=== PATIENT | male | born 1945 | race Caucasian/White ===

== ENCOUNTER 2019-02-04 09:40 | Emergency (ER) | payer MEDICARE, OTHER, SELFPAY ==
[2019-02-04 09:41] VITALS: BP 168/83; PULSE 79; RESP 16; TEMP 36.9; O2SAT 94; BMI 35.6
--- NOTE | 2019-02-04 10:01 | ED.RN ---
came in today with daughter with no c/o pain. recent stroke january 28.pt chuckling lots and having strange behaviors at home. when assessed no weakness noted. pt needing prompting to answer questions. got month and year rt only when given multiple choices.
--- NOTE | 2019-02-04 10:05 | EKG12_ITS ---
Test Reason : CONFUSION Blood Pressure : / mmHG Vent. Rate : 074 BPM Atrial Rate : 074 BPM P-R Int : 196 ms QRS Dur : 114 ms QT Int : 396 ms P-R-T Axes : 002 -17 -06 degrees QTc Int : 439 ms Normal sinus rhythm Leftward [place] Poor R-Wave Progression Anterio OK, age undetermined cannot be excluded Inferior infarct (cited on or before 10-APR-2014), age undetermined Abnormal ECG Confirmed by DELANO JAMES, ERWIN ([id number]), editorial cartoonist MARGARITA HERRERA ([id number]) on 02/06/2019 1:28:31 PM Referred By: ILAN Confirmed By:ERWIN WICK MD
--- NOTE | 2019-02-04 10:09 | ED.VISSUMM ---
- ER Visit Summary Date of Service: 02/04/19 Chief Complaint: Confusion History of Present Illness: The patient is a 73 M history of a recently diagnosed stroke on outpatient CAT scan done at the [facility]. Patient also has a history of blv-cdhodig-ypsdhgsrj diabetes, hypertension, COPD, renal insufficiency and high cholesterol. Patient lives with his daughter and her family. Over the last 4 weeks or so he has had increasing confusion. He did have a recent fall had a CAT scan done after that which found a stroke. She states he is tried to start the car without cheese. He has been inadvertently texting people. He denies any recent illnesses. Physical Examination: Older male no acute distress. Vital signs are stable. Afebrile. He does not look septic or toxic. He is in no distress. Daughters at bedside. HEENT exam unremarkable. Atraumatic. Pupils round reactive light. Extra motions are intact. Normal speech. No facial droop. Neck nontender. Prior right-sided carotid endarterectomy. Lungs clear to auscultation bilaterally. Heart regular rhythm no murmur. Chest wall nontender. Abdomen soft nontender. Patient is moving all 4 extremities. No edema. Neurologically patient is awake. He is alert. He answers questions. No slurred speech. He does know month, year and president [facility] but he has to be prompted and given choices. But he can pick the correct year when 3 choices are given, also the correct president on multiple choice and the correct month. Test Results: CBC was normal white count 8. Hemoglobin 13. Chemistries unremarkable other than creatinine 1.6. Normal gap. Liver enzymes normal. Chest x-ray shows borderline cardiomegaly otherwise no acute process. Read by myself and the radiologist. EKG sinus rhythm rate of 74 with no acute signs of DE or ischemia. Emergency Department Course and Treatment: Older male with confusion. Patient is doing well at 1340. Had a long discussion with both the patient and his family. Family wants to take him home he does not want to be admitted and they will do an outpatient dementia workup with her primary care physician. Probably needs neurology referral and also potentially to see if communications 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. Treatment Plan: Follow-up with PCP for outpatient dementia workup. Disposition: Discharge Impression: Confusion of uncertain etiology This note was generated with ONEPLEation software. It may contain incorrect words, spelling, and punctuation that were not noted in review of the chart prior to signing ED Disposition - Plan for ED Patient: Referrals: Mannie Bang MD [NON-STAFF] -
--- NOTE | 2019-02-04 10:13 | ED.DCSUM_ITS ---
- ER Visit Summary Date of Service: 02/04/19 Chief Complaint: Confusion History of Present Illness: The patient is a 73 M history of a recently diagnosed stroke on outpatient CAT scan done at the [facility]. Patient also has a history of eeg-mfjobls-ljvsgyveu diabetes, hypertension, COPD, renal insufficiency and high cholesterol. Patient lives with his daughter and her family. Over the last 4 weeks or so he has had increasing confusion. He did have a recent fall had a CAT scan done after that which found a stroke. She states he is tried to start the car without cheese. He has been inadvertently texting people. He denies any recent illnesses. Physical Examination: Older male no acute distress. Vital signs are stable. Afebrile. He does not look septic or toxic. He is in no distress. Daughters at bedside. HEENT exam unremarkable. Atraumatic. Pupils round reactive light. Extra motions are intact. Normal speech. No facial droop. Neck nontender. Prior right-sided carotid endarterectomy. Lungs clear to auscultation bilaterally. Heart regular rhythm no murmur. Chest wall nontender. Abdomen soft nontender. Patient is moving all 4 extremities. No edema. Neurologically patient is awake. He is alert. He answers questions. No slurred speech. He does know month, year and president [facility] but he has to be prompted and given choices. But he can pick the correct year when 3 choices are given, also the correct president on multiple choice and the correct month. Test Results: CBC was normal white count 8. Hemoglobin 13. Chemistries unremarkable other than creatinine 1.6. Normal gap. Liver enzymes normal. Chest x-ray shows borderline cardiomegaly otherwise no acute process. Read by myself and the radiologist. EKG sinus rhythm rate of 74 with no acute signs of TN or ischemia. Emergency Department Course and Treatment: Older male with confusion. Patient is doing well at 1340. Had a long discussion with both the patient and his family. Family wants to take him home he does not want to be admitted and they will do an outpatient dementia workup with her primary care physician. Probably needs neurology referral and also potentially to see if ropeman. Treatment Plan: Follow-up with PCP for outpatient dementia workup. Disposition: Discharge Impression: Confusion of uncertain etiology This note was generated with [employer] software. It may contain incorrect words, spelling, and punctuation that were not noted in review of the chart prior to signing ED Disposition - Plan for ED Patient: Referrals: Mannie Bang MD [NON-STAFF] -
--- NOTE | 2019-02-04 10:22 | RAD_ITS ---
STUDY: X-RAY CHEST REASON FOR EXAM: Male, 73 years old. Confusion and pain. TECHNIQUE: Single portable frontal chest. COMPARISON: None. FINDINGS: There is minimal mixed interstitial and alveolar opacity within both medial lung bases. No definite dominant focal alveolar opacification. No pleural effusion. No pneumothorax. There is no demonstrated pleural abnormality. There is borderline cardiomegaly. Normal mediastinum and gabby. Normal visualized pulmonary arteries. There is atherosclerotic calcification of the aortic arch with tortuosity. There is no acute osseous abnormality. There is no demonstrated abnormality of the visualized soft tissue structures of the upper abdomen. RAD/Chest 1 View (Portable) IMPRESSION: Bilateral medial lung base findings may simply represent bronchovascular crowding from a mildly small lung volumes. Small/early foci of pneumonitis can also present in this fashion. Consider follow-up. Borderline cardiomegaly. Senescent changes of descending thoracic aorta. Atherosclerotic peripheral vascular disease. No pneumothorax. Electronically Signed: Khanh Knight MD at 10:35 EDT , Service support ,
[2019-02-04 10:52] LABS: Absolute Lymphocyte Count 1.47 X10^3/ul (0.83-4.51); Absolute Neutrophil Count 5.9 X10^3/uL (2.0-7.7); Basophil# 0.03 X10^3/uL; Basophil% 0.4 % (0-1); Eosinophils% 2.4 % (0-5); Hematocrit 42.8 % (40-54); Hemoglobin 13.8 g/dl (13.0-16.5); Lymphocyte # 1.47 X10^3/ul (4.0); Lymphocyte % 17.8 % (19-41); Mean Corp Hgb Conc 32.2 g/gl (32-36); Mean Corpuscular Hgb 29.2 pg (27.0-32.0); Mean Corpuscular Volume 90.7 fL (80-94); Monocyte# 0.59 X10^3/uL; Monocyte% 7.2 % (0-10); Neutrophil # 5.94 X10^3/uL (2.7-7.7); Platelet Count 204 K/mm3 (150-450); RBC Distribution Width CV 14.7 % (11.6-14.6); RBC Distribution Width SD 48.6 fl (35.1-43.9); Red Blood Count 4.72 M/mm3 (4.6-6.2); White Blood Count 8.3 K/mm3 (4.4-11.0)
[2019-02-04 11:00] LABS: POSITIVE DIFFERENTIAL NO; POSITIVE MORPHOLOGY NO
[2019-02-04 11:05] LABS: AST(SGOT) 13 U/L (15-37); Alanine Aminotransfer ALT/SGPT 18 U/L (16-61); Albumin, Serum 3.5 g/dL (3.2-5.0); Alkaline Phosphatase 90 U/L (45-117); Anion Gap 6 (5-15); BUN 24 mg/dL (7-18); BUN/Creat Ratio 14.5 RATIO (10-20); Bilirubin, Direct 0.25 mg/dL (0.00-0.30); Calcium,Total 8.8 mg/dL (8.5-10.1); Chloride 106 mmol/L (98-107); Creatinine, Serum 1.66 mg/dL (0.70-1.30); EST Glomerular Filtration Rate 43 mL/min (>60); Est Glom Filt Rate - Afr Amer 52 mL/min (>60); Estimated Creatinine Clearance 40.95 ml/min; Globulin 3.9 g/dL (2.2-4.2); Glucose 135 mg/dL (74-106); Potassium 3.9 mmol/L (3.5-5.1); Protein, Total 7.4 g/dL (6.4-8.2); Sodium Level 139 mmol/L (136-145)
[2019-02-04 11:29] VITALS: BP 122/70; PULSE 70; RESP 22; O2SAT 97
--- NOTE | 2019-02-04 13:50 | DCINST.ED_ITS ---
ED Disposition - Plan for ED Patient: Disposition: Home or Assisted Living Instructions: ED Confusion, ED Dementia Caregiver Support Referrals: Guanakito Atkins MD [Primary Care Provider] - As soon as possible Fred Rob MD [STAFF PHYSICIAN] - As soon as possible Additional Instructions: He needs a follow-up with his primary care physician. He will need outpatient workup for dementia. Review most likely need to see a business operations coordinator. Older patients with these types of issues. He may also need to see a neurologist. Dr. Fred Rob is a neurologist at the [facility]. He can also be seen by someone at the [facility] per Dr. Atkins's referral.
[2019-02-04 13:54] VITALS: BP 169/72; PULSE 73; RESP 15; O2SAT 97
== END 2019-02-04 13:55 | disposition home or self-care (01) ==
PROVIDERS: Emergency Provider Emergency Medicine; Family Provider Family Medicine; PCP Family Medicine
DX: R41.0 Disorientation, unspecified (principal); I12.9 Hypertensive chronic kidney disease with stage 1 through stage 4 chronic kidney disease, or unspecified chronic kidney disease; E11.22 Type 2 diabetes mellitus with diabetic chronic kidney disease; N18.3 Chronic kidney disease, stage 3 (moderate); E78.00 Pure hypercholesterolemia, unspecified; Z86.73 Personal history of transient ischemic attack (TIA), and cerebral infarction without residual deficits; Z79.84 Long term (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 oral hypoglycemic drugs; Z79.899 Other long term (current) drug therapy; Z87.891 Personal history of nicotine dependence
CPT/HCPCS: 71045; 80048; 80076; 85025; 93005; 99283; A4216

== ENCOUNTER → 2019-03-12 17:08 | Outpatient (CLI) | payer MEDICARE, OTHER, SELFPAY ==
[2019-03-12 17:33] LABS: Prothrombin Time (Protime)PT. 35.2 SECONDS (11.7-14.9)
[2019-03-12 17:52] LABS: International Normalized Ratio 3.5
== END ==
PROVIDERS: Family Provider Family Medicine; PCP Family Medicine; Visit Provider Family Medicine
DX: I48.0 Paroxysmal atrial fibrillation (principal)
CPT/HCPCS: 85610

== ENCOUNTER → 2019-03-14 14:11 | Outpatient (CLI) | payer MEDICARE, OTHER, SELFPAY ==
[2019-03-14 14:56] LABS: International Normalized Ratio 2.5
== END ==
PROVIDERS: Family Provider Family Medicine; PCP Family Medicine; Referring Provider Family Medicine; Visit Provider Family Medicine
DX: I48.0 Paroxysmal atrial fibrillation (principal)
CPT/HCPCS: 85610

== ENCOUNTER 2019-05-20 09:00 | Outpatient (RCR) | payer MEDICARE, OTHER, SELFPAY ==
--- NOTE | 2019-02-21 15:19 | HP.OTEVAL_ITS ---
Patient's Visit Information CAL DE SANTIAGO is a 73 year old M, referred to Occupational Therapy by Guanakito Atkins MD, with a diagnosis of CVA, HCC, Memory Loss. Date of Evaluation: 02/20/19 Occupational Therapist: Chely Caruso - Subjective Subjective: Pt seen for initial occupational therapy evaluation for CVA, HCC, Memory loss. Pt's daughter present for evaluation and answered most questions as pt would just laugh when asked questions. Pt able to answer 50% of questions. Pt had fall in [facility] January 09, 2019, EMT came and stated all his vitals were good and he didn't need to go to hospital, states fell on R shoulder where he already had limited movment and pain from arthritis. January 16 pt to hospital with diagnosis of CVA. Daughter and her family live with pt in 1 level home 3-4 steps to enter house 1 HR. Pt states indep w/ BADL tasks and daughter completes IADL tasks. Pt has tub/shower w/ shower chair and grab bars, std toilet seat. No other DME/AE. AMB no device. Pt will cook his own lunch w/ son n law in basement if anything needed while daughter works during the day. Pt states daughter wont let him drive anymore. Hobbies, hunting, trains. Right hand dominent. Daughter states she has to tell him when to bath, give him his medications. Daughter states the other day they were driving to go out to eat, she asked pt where he wanted to go and he was not able to state where he wanted to go, but gave her directions how to get there as they were driving and eventually ended up at [facility] where he wanted to go and eat. 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 - Pain R shoulder 8 - Objective Objective/Observation: pt very quiet, laughing when asked questions he didn't know how to answer. pain with specific movements of R shoulder. - ROM Shoulder: see below Elbow: R WFL, L WFL Wrist: R WFL, L WFL ROM Comments: R UE shoulder flexion 115', L UE shoulder flexion 140'. R UE slight limited internal rotation to reach behind back, external rotation sh oulder WFL. L UE internal/external rotation WFL - Strength Brooch And Bracelet Maker: R 50#, L 50# Lateral Pinch: R 13#, L 13# Tripod Pinch: R 11#, L 10# Strength Comments: R UE 4-/5. L UE 4-/5 - Edema Other: No edema noted - Sensation Sensation Comments: Pt states no numbness or tingling - Nine Hole Peg Right: 26 seconds Left: 25.9 seconds - Quick DASH-Disab of Arm,Shoulder& Hand Quick DASH Score: 38.6350 - Goals Goal:: Pt/daughter will be educated on joint protection/energy conservation techniques for R shoulder w/ BADL tasks with good understanding and demo 100%x Goal:: Pt/daughter will be educated on R UE HEP for shoulder with good understanding and demo 100%x - Rehabilitation General Assessment: Pt demo limited AROM R UE shoulder that he has had for yrs and states has been worse since fall in end december. Pt continues to be independent with BADL tasks with sup for cognition and memory of completing tasks. Pt would benefit from direct occupational therapy services to educate on joint protection R shoulder and R UE HEP/stretches. ST to address memory loss and cognition. Rehabilitation Potential: Fair - Anticipated Interventions Anticipated Interventions: A/AAROM/PROM, Strengthening, Modalities, Joint Protection/Energy Conservation, Education re assistive Equipment, Education re Diagnosis, Caregiver Training, Home Program - Visit Plan Frequency: 1x/Week Duration: 3 Weeks General Plan: Pt demo limited ROM R shoulder secondary to arthritis. Pt demo limited AROM R UE shoulder that he has had for yrs and states has been worse since fall in end of December. Pt continues to be independent with BADL tasks with sup for cognition and memory of completing tasks. Pt would benefit from direct occupational therapy services to educate on joint protection R shoulder and R UE HEP/stretches. ST to address memory loss and cognition. TEXT: Thank you for the opportunity to evaluate your patient. For Medicare and Medicare HMO plans, please review the plan of care and approve it. It will need to be FAXED BACK to us at [phone] for Medicare purposes. Please let me know if there are questions or concerns regarding this plan of care. Physician Signature: Date:
--- NOTE | 2019-03-25 18:37 | HP.SP.AD ---
History - History Date of Eval: 03/25/19 Previous speech therapy: No Other Relevant Medical History/Diagnoses/Surgery: Pt with fall January 09, 2019 with EMT stating fine. Pt with increasing confusion and poor language following fall with CVA eventually diagnosed by [facility] via CAT scan. Pt to [facility] ED with worsening symptoms February 04, 2019 with referral to neurology due to confusion with uncertain etiology, as well as to PCP for outpatient dementia workup. Smoking Status: Never smoker Hx Smoking: Yes - QUIT 25 YRS AGO Hx Tobacco Use: No - Pain Is pain an issue with your current prescribed condition?: Yes - Personal Patients Living Arrangements: With Family Patient Allergies - Allergies Allergies No Known Allergies Allergy (Verified 02/04/19 09:44) CLQT - CLQT CLQT Administered: Yes CLQT: Cognitive Linguistic Quick Test (CLQT) is a criterion - referenced assessment designed for adults between the ages of 18 and 89 with known or suspected neurological dysfuntions. The CLQT is to assess strength and weaknesses in five cognitive domains. Severity ratings are within normal limits, mild, moderate, severe deficits. The subtests are as follows: Date: 03/25/19 - CLQT Comments Subtest Scores The CLQT was unable to be completed in its entirety on this date due to time constraints. However, the pt did complete the following subtests with scores: Personal Facts: 8 Criterion Cut Score (CCS): 8 Symbol Cancellation: 12 CCS: 10 Confrontation Namin CCS: 10 Clock Drawin CCS: 11 Story Retellin CCS: 5 Symbol Trails: 7 CCS: 6 Generative Namin CCS: 3 Design Memory: 4 CCS: 5. Therefore, the pt was in WNL for his age on all subtests but Generative Naming, which assesses word search and retrieval skills. Other Impressions - Comments Other Impressions -: The pt was pleasant and appropriate throughout the evaluation. His daughter was present and reports that the pt has made significant gains in the last month, but is still slower and demonstrates slow processing during conversational interactions. The daughter fills his pill box and reminds him to take his medications daily and another daughter has handled his finances for over a year. Since his fall, his daughter has not let him drive. The pt does complete household tasks (simple cooking, yard word, etc...). Plan - Plan Plan: Skilled speech-language therapy is warranted at this time to due to mild deficits in cognitive-linguistic skills, as deficits in this area may make it difficult for the patient to make safety decisions and effectively understand and convey directives during emergent situations. - Recommendations Treatment Warranted: Yes - Frequency Frequency: 1x/Week Duration: 2-4 Months - Prognosis Prognosis: Good - Goals that are Established: Determination:: Goals will be added/modified as deemed necessary and appropriate. Therapy will be discontinued when results of re-evaluation indicate therapy is no longer needed or lack of progress has been documented. - Goal #1-5 Goal #1: The pt will complete standardized evaluation of cognitive-linguistic functioning. Goal #2: The pt will effectively utilize word-finding strategies in instances of anomia with 90% accuracy in 3/4 consecutive sessions. Goal #3: The pt will utilize targeted strategies to complete higher-level problem solving activies with 80% accuracy in 3/4 consecutive sessions. Education - Patient has Indicated that the Following Identified Educational Needs: None The Patient has indicated that they have no educational or learning abilities that may effect their care.: Yes - Patient Instruction Patient Education: Treatment Plan, Goals
--- NOTE | 2019-06-21 14:28 | HP.SP.DC ---
ST Discharge Summary - Discharged: Discharge: Jamshid Mitchell is discharged from outpatient speech-language therapy effective 06/21/2019. Jamshid participated in 2 therapy sessions following his initial evaluation targeting mild impairments with memory and language secondary to suspected CVA, with no additional appointments being scheduled. The patient was provided strategies for anomia and memory/higher level problem solving and was encouraged to stay as active as possible with housework and hobbies while living with his daughter. Please reconsult as necessary.
== END 2019-05-20 19:00 | disposition home or self-care (01) ==
LOC: SP 09:00
PROVIDERS: Family Provider Family Medicine; PCP Family Medicine; Referring Provider Family Medicine; Visit Provider Family Medicine
DX: R41.3 Other amnesia (principal); R47.01 Aphasia; Z86.73 Personal history of transient ischemic attack (TIA), and cerebral infarction without residual deficits
CPT/HCPCS: 92507; 92523; 97165; 97166

== ENCOUNTER → 2024-08-07 | Outpatient (CLI) | payer MEDICARE, SELFPAY ==
[2024-08-07 13:45] LABS: Albumin, Serum 3.3 g/dL (3.2-5.0); BUN 35 mg/dL (7-18); BUN/Creat Ratio 14.3 RATIO (10-20); Calcium,Total 8.4 mg/dL (8.5-10.1); Chloride 114 mmol/L (98-107); Creatinine, Serum 2.45 mg/dL (0.70-1.30); EST Glomerular Filtration Rate 27 mL/min (>60); Est Glom Filt Rate - Afr Amer 33 mL/min (>60); Glucose 111 mg/dL (74-106); Phosphorus 2.9 mg/dL (2.5-4.9); Potassium 4.5 mmol/L (3.5-5.1); Sodium Level 144 mmol/L (136-145)
== END | disposition home or self-care (01) ==
PROVIDERS: PCP Family Medicine; Referring Provider Internal Medicine Nephrology; Visit Provider Internal Medicine Nephrology
DX: N18.4 Chronic kidney disease, stage 4 (severe) (principal)
CPT/HCPCS: 36415; 80069

== ENCOUNTER 2025-04-14 12:30 | Outpatient (RCR) | payer MEDICARE, SELFPAY ==
--- NOTE | 2025-03-24 12:56 | HP.PTEVAL ---
Patient's Visit Information Visit Information Visit Information: CAL DE SANTIAGO is a 79 year old M referred to Physical Therapy by Dr. Josafat García MD with a diagnosis of Fx of Upper End of Right Humerus. Date of Evaluation: 03/24/25 Physical Therapist: Rosa Gates DPT Visit Plan Frequency: 2x /Week Duration: 4 Weeks Plan: GENTLE ROM Weeks 2-6 and then strengthen at week 7 (from 03/07/2025)- GENTLE! Fracture is aligned but healing HEP Given IE: finger dexterity, Elbow Flexion/Extn, Pendulums and table walk aways Subjective Subjective: Patient reports that he was using a rollator and fell about 2 weeks ago. They went to the ER after he was not able to use his right arm. Saw PCP who then got him to see Dr. García. He did not recommend use of a sling and let it hang and come to PT after 2 weeks. He is right hand dominate. He reports pain in the anterior shoulder. Worst: 10/10 Agg: movement. Eases: not using it. He not takes Tylenol every 4-6 hours. He reports the pain is sharp and shooting. No N/T in the fingers. No radiating pain. Sleep: twin bed and lift chair and he has migrated to the lift chair- once he is alseep it does not wake him. Lives with his daughter and her . They are mostly there to help- they do the cooking and cleaning. Daughter helps with shower but is more hands on since the fall. He needs help with dressing now due to the right arm now working as well. He uses a cane around the house and the 4 wheeled walker he has not used since the day he fell- they are using a wheelchair if they go out. He lives in a ranch style home with a ramp to enter. There has been many falls but this is the first time he has sustained an injury. He had functional use of the shoulder prior to the fall. PMHx/Meds: no changes since ortho. Objective Objective: Posture: forward head, rounded shoulders- can correct but does not maintain Gait: guarded- does not ambulate distances Palpation: tender along upper trap and bicipital groove Observation: bruising along the bicep and down into the forearm Sensation: WNL to gross touch ROM: finger dexterity: WNL, Wrist: WNL- reports discomfort with sup/pro, Elbow: full flexion and extension but reports discomfort at end range flexion and tightness at end range extn, Shoulder: Active: Flexion: 30 degrees, Abd: 40 degrees, IR: to belly, ER: neutral. AAROM: Flexion with table walk away: 50 degrees. No PROM due to guarding. Strength: Scap: poor, digital sales assistant: fair, no other motions tested due to restrictions from MD. Balance/Special Test Scores Quick DASH Score: 84.0900 Goals Goal 1:: Patient will be I with HEP and progression Goal Time Frame: 4-6 Weeks Goal 2:: Patient will demo 120 degrees of active flexion Goal Time Frame: 4-6 Weeks Goal 3:: Patient will report ability to perform ADL's indep Goal Time Frame: 4-6 Weeks Goal 4:: Patient will report no pain for 1 week with sleep Goal Time Frame: 4-6 Weeks Goal 5:: Patient will report 80% improvement Goal Time Frame: 4-6 Weeks Rehabilitation Potential Physical Therapy Diagnosis: Patient presents with hypomobility- he has decreased ROM, scapular and UE strength/stabilization and muscular endurance s/p right humeral fracture leading to inability to perform ADL's. Rehabilitation Potential: Fair Anticipated Interventions Patient/Client Instruction: Educate patient on: Benefits of Fitness Program Therapeutic Exercise to Include: Strength training, Endurance training, Agility training, Body mechanics, Postural training, Flexibilty training, Neuromotor development, Dynamic Lumbar Stabilization and Scapular Strength/Stabilization Manual Therapy Techniques to Include: Passive ROM For the Purpose of:: To improve muscle performance and motor function TENS: Yes Cryotherapy (ice pack, ice massage): Yes Thermo therapy (hot pack): Yes Ultrasound (thermal/non thermal): No Text: Thank you for the opportunity to evaluate your patient. For Medicare and Medicare HMO plans, please review the plan of care and approve it. It will need to be FAXED BACK to us at [phone] for Medicare purposes. For Medicare only, by signing this I certify the plan of care. Please let me know if there are questions or concerns regarding this plan of care. Physician Signature: Date:
== END 2025-04-14 19:00 | disposition home or self-care (01) ==
LOC: PT 12:30
PROVIDERS: PCP Family Medicine; Referring Provider Orthopaedic Surgery Sports Medicine; Visit Provider Orthopaedic Surgery Sports Medicine
DX: S42.201D Unspecified fracture of upper end of right humerus, subsequent encounter for fracture with routine healing (principal)
CPT/HCPCS: 97110; 97140; 97162

== ENCOUNTER → 2025-04-17 | Outpatient (REF) | payer MEDICARE, SELFPAY ==
[2025-04-17 08:12] LABS: Hematocrit 35.2 % (40-54); Hemoglobin 10.6 g/dL (13.0-16.5); Mean Corp Hgb Conc 30.1 g/dL (32-36); Mean Corpuscular Volume 97.0 fL (80-94); Mean Platelet Vol. 10.0 fl (6.2-12.0); Platelet Count 161 K/mm3 (150-450); RBC Distribution Width CV 16.4 % (11.6-14.6); RBC Distribution Width SD 58.6 fl (35.1-43.9); Red Blood Count 3.63 M/mm3 (4.6-6.2); White Blood Count 7.2 K/mm3 (4.4-11.0)
[2025-04-17 09:01] LABS: Prothrombin Time (Protime)PT. 29.7 SECONDS (11.7-14.9)
[2025-04-17 09:04] LABS: Anion Gap 10 (5-15); BUN 52 mg/dL (4-19); BUN/Creat Ratio 21.1 RATIO (10-20); Calcium,Total 8.2 mg/dL (7.6-11.0); Carbon Dioxide 17.2 mmol/L (21.0-32.0); Chloride 111 mmol/L (98-108); Glucose 137 mg/dL (70-99); Potassium 4.9 mmol/L (3.3-5.1)
== END ==
LOC: OLS.SW 05:00
PROVIDERS: PCP Family Medicine; Visit Provider Internal Medicine
DX: Z79.01 Long term (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 (principal); Z79.899 Other long term (current) drug therapy
CPT/HCPCS: 36415; 80048; 85027; 85610

== ENCOUNTER → 2025-04-24 05:00 | Outpatient (REF) | payer MEDICARE, SELFPAY ==
[2025-04-24 09:21] LABS: INR Fingerstick 3.5
== END ==
LOC: OLS.SW 05:00
PROVIDERS: PCP Family Medicine; Visit Provider Family Medicine
DX: I48.91 Unspecified atrial fibrillation (principal)
CPT/HCPCS: 36416; 85610

== ENCOUNTER → 2025-04-29 | Outpatient (REF) | payer MEDICARE, SELFPAY ==
[2025-04-29 09:00] LABS: Prothrombin Time (Protime)PT. 32.2 SECONDS (11.7-14.9)
== END ==
LOC: OLS.SW 06:45
PROVIDERS: PCP Family Medicine; Visit Provider Family Medicine
DX: I48.91 Unspecified atrial fibrillation (principal)
CPT/HCPCS: 36415; 85610

== ENCOUNTER → 2025-05-01 05:15 | Outpatient (REF) | payer MEDICARE, SELFPAY ==
[2025-05-01 09:18] LABS: Prothrombin Time (Protime)PT. 33.6 SECONDS (11.7-14.9)
== END ==
LOC: OLS.SW 05:15
PROVIDERS: PCP Family Medicine; Visit Provider Family Medicine
DX: I48.91 Unspecified atrial fibrillation (principal)
CPT/HCPCS: 36415; 85610

== ENCOUNTER → 2025-05-06 | Outpatient (REF) | payer MEDICARE, SELFPAY ==
[2025-05-06 07:57] LABS: Prothrombin Time (Protime)PT. 40.8 SECONDS (11.7-14.9)
[2025-05-06 08:02] LABS: INR Fingerstick 4.3
== END ==
LOC: OLS.SW 04:00
PROVIDERS: PCP Family Medicine; Referring Provider Family Medicine; Visit Provider Family Medicine
DX: I48.91 Unspecified atrial fibrillation (principal)
CPT/HCPCS: 36415; 36416; 85610

== ENCOUNTER → 2025-05-08 05:00 | Outpatient (REF) | payer MEDICARE, SELFPAY ==
--- OUTSIDE RECORDS SUMMARY | 2025-05-08 04:05 | XMS RPT_ITS | CCD ---
Author Organization [facility] Care Team Providers Care Picture Booker Name Role Phone VIPIN CARDONA Unavailable Unavailable VIPIN CARDONA Unavailable Unavailable Mannie Bang Unavailable Unavailable VIPIN CARDONA Unavailable Unavailable VIPIN CARDONA Unavailable Unavailable Mannie Bang Unavailable Unavailable Guanakito Reno MD Primary Care Provider 13, Pharmacist Unavailable Guanakito Reno MD Primary Care Provider 13, Pharmacist Unavailable Guanakito Reno MD Primary Care Provider Guanakito Reno MD Primary Care Provider 13, Pharmacist Unavailable Guanakito Reno MD Primary Care Provider Haagen [employer].Corrina OCONNELL Unavailable [phone] Suppan [employer].KOURTNEY, Carolina A Unavailable Suppan [employer].KOURTNEY, Carolina A Unavailable JOSSELYN MAYER Referring Unavailable GUANAKITO RENO Primary Care Unavailable KAM, KHALED BRONSON Attending Unavailable GUANAKITO RENO Primary Care Unavailable GUANAKITO RENO Primary Care Unavailable CAL THACKER Attending Unavailable LAURA IRAHETA Attending Unavailable GUANAKITO RENO Primary Care Unavailable SLEVIRGILIO, KHALED MELOUD Admitting Unavailable SLEVIRGILIO, KHALED MELOUD Attending Unavailable KAM, KHALED MELOUD Referring Unavailable GUANAKITO RENO Primary Care Unavailable JOSSELYN MAYER Referring Unavailable GUANAKITO RENO Primary Care Unavailable KEDAR HERNANDEZ Attending Unava ilable SHADIA, GUANAKITO J Primary Care Unavailable Dr. Guanakito Reno MD Primary Care Provider Shadia JAMES, Dr. Calabrese Referring Provider Josafat García MD Attending Provider Josafat García MD Referring Provider Lisa JAMES, Dr. Carlton Attending Provider Unavaila ayleen Simon MD, Dr. Maurice Attending Provider Unavail able Dr. David Navarrete DO Attending Provider Noah JAMES, Dr. Dallas Attending Provider Shadia, Guanakito Primary Care Unavailable Josafat Oliva Attending Unavailable Raquel, Josafat Attending Unavailable Josafat García Referring Unavailable Sabattus, Guanakito Primary Care Unavailable Bianka Olivera Attending Unavailable Sabattus, Guanakito Primary Care Unavailable Sabattus, Guanakito Primary Care Unavailable Burt Zamora Attending Unavailable Josafat García Attending Unavailable Sabattus, Guanakito Primary Care Unavailable Sabattus, Guanakito Referring Unavailable Sabattus, Guanakito Primary Care Unavailable David Navarrete Attending Unavailable Sabattus, Guanakito Referring Unavailable Bill, Ariana Attending Unavailable Bill, Ariana Referring Unavailable Sabattus, Guanakito Primary Care Unavailable Shadia, Guanakito Primary Care Unavailable Josafat Oliva Attending Unavailable Josafat Oliva Attending Unavailable Sabattus, Guanakito Primary Care Unavailable Josafat Oliva Attending Unavailable Sabattus, Guanakito Primary Care Unavailable CAROLINA LANDEROS Attending Unavailable SHADIA, GUANAIKTO J Primary Care Unavailable SHADIA, GUANAKITO J Primary Care Unavailable CAROLINA LANDEROS Attending Unavailable SHADIA, GUANAKITO J Primary Care Unavailable SHADIA, GUANAKITO J Attending Unavailable SHADIA, GUANAKITO J Primary Care Unavailable JOSSELYN MAYER Referring Unavailabl e SHADIA, GUANAKITO J Primary Care Unavailable VALERIE PIÑA Referring Unavailable SHADIA, GUANAKITO J Primary Care Unavailable CAROLINA LANDEROS Attending Unavailable SHADIA, GUANAKITO J Primary Care Unavailable CAROLINA LANDEROS Referring Unavailable SHADIA, GUANAKITO J Primary Care Unavailable Allergies Allergy Classification Reported Allergen(s) Allergy Type Date of Onset Reaction(s) Facility (3 sources) Environmental Allergies: Uncoded; Translations: [Environmental Allergies: Uncoded] Allergy to substance 5 [facility] Medications Current Medications Medication Drug Class(es) Dates Sig (Normalized) Sig (Original) acetaminophen 500 mg oral tablet (20 sources) Start: 05-02-2025 Acetaminophen 500 mg tablet Active 325 mg PO Q8H as needed May 02, 2025 10:31am Start: 05-02-2025 Acetaminophen 650 mg suppository Active 650 mg RC Q4H as needed May 02, 2025 12:00am Start: 08-21-2019 End: 05-02-2025 take 1 tablet by mouth every eight hours as needed Acetaminophen 500 mg tablet Discontinued 500 mg PO Q8H as needed August 21, 2019 1:00am May 02, 2025 10:38am 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: Take 500 mg by mouth every 8 hours as needed. aluminum hydroxide 40 mg/ml / magnesium hydroxide 40 mg/ml / simethicone 4 mg/ml oral suspension (2 sources) Start: 05-02-20 take 1 mL by mouth every four hours at bedtime Alum-Mag Hydroxide-Simeth (Antacid) 200-200-20 mg/5 mL suspension Active 30 mL PO Q4H as needed May 02, 2025 12:00am administer between meals and at bedtime atorvastatin 80 mg oral tablet (20 sources) HMG-CoA Reductase Inhibitor Start: 03-12-20 End: 03-06-20 take 1 tablet by mouth once daily at bedtime for hyperlipidemia atorvastatin (LIPITOR) 80 mg tablet Indications: Hyperlipidemia, mixed Take 1 tablet by mouth daily at bedtime. For cholesterol. 90 tablet 3 03/06/2025 03/06/2026 Active Start: 08-21-2019 End: 03-12-2020 Atorvastatin 40 mg tablet Discontinued 60 mg PO AT BEDTIME August 21, 2019 2:34pm March 12, 2020 1:21pm Start: 04-10-2014 End: 08-21-2019 take 1 tablet by mouth at bedtime Atorvastatin 40 MG tablet Discontinued 40 mg PO AT BEDTIME April 10, 2014 12:00am August 21, 2019 2:37pm 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: Take 1 tablet by mary th daily at bedtime. For cholesterol. Take 1 tablet by mary th daily at bedtime for 14 days. For cholesterol. bisacodyl 10 mg rectal suppository (2 sources) Stimulant Laxative Star t: 04-15 25 Bisacodyl (Dulcolax (Bisacodyl)) 10 mg suppository Active 10 mg RC daily as needed May 02, 2025 12:00am carboxymethylcellulose 0.01 mg/mg ophthalmic gel (3 sources) Star t: 06-04 End: 06-04 carboxymethylcellulose sodium (LUBRICANT DRY EYE RELIEF) 1 % dlgl Indications: Viral conjunctivitis Use 1-2 drops in both eyes as needed. 15 mL 01/21/2025 02/20/2025 Active clopidogrel 75 mg oral tablet (20 sources) [id number] Platelet Inhibitor Star t: 01-15 End: 06-04 take 1 tablet by mouth once daily Clopidogrel 75 MG tablet Active 75 mg PO DAILY February 04, 2019 12:00am 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: Take 1 tablet by mary once daily. escitalopram 10 mg oral tablet (20 sources) Serotonin Reuptake Inhibitor Star t: 09-15 End: 06-04 take 1 tablet by mouth once daily Escitalopram Oxalate (Lexapro) 10 mg tablet Active 10 mg PO DAILY September 28, 2020 1:00am 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: Take 1 tablet by mary once daily. finasteride 5 mg oral tablet (20 sources) 5-alpha Reductase Inhibitor Star t: 01-15 End: 06-04 take 1 tablet by mouth once daily Finasteride 5 MG tablet Active 5 mg PO DAILY February 04, 2019 12:00am 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: Take 1 tablet by mary once daily. glucagon (rdna) 1 mg injection (2 sources) Antihypoglycemic Agent Star t: 04-15 Glucagon (Glucagon Emergency Kit (Human)) 1 mg recon soln Active 1 mg SC Q20M as needed May 02, 2025 12:00am until target blood sugar attained glucose 0.4 mg/mg oral gel (2 sources) Star t: 04-15 Dextrose (Glucose Gel) 40 % gel Active 10 g PO Q15M as needed May 02, 2025 12:00am until symptoms of low blood sugar are controlled guaiFENesin 20 mg/ml oral solution (2 sources) Star t: 04-15 take 200 mg by mouth every four hours as needed Guaifenesin 100 mg/5 mL liquid Active 200 mg PO Q4H as needed May 02, 2025 12:00am lisinopril 10 mg oral tablet (20 sources) Angiotensin Converting Enzyme Inhibitor Star t: 06-04 End: 06-04 take 1 tablet by mouth once daily Lisinopril 10 mg tablet Active 10 mg PO daily March 07, 2025 12:00am Start: 03-26-2024 End: 01-08-2026 take 1 tablet by mouth once daily lisinopril (ZESTRIL) 20 mg tablet Take 1 tablet by mouth once daily. 30 tablet 01/08/2025 01/21/2025 Discontinued (Duplicate Entry) loratadine 1 mg/ml oral solution (12 sources) Start: 03-07-2025 take 5 mg by mouth once Loratadine (Allergy Relief (Loratadine)) 5 mg/5 mL solution Active 5 mg PO ONCE March 07, 2025 12:00am Start: 01-21-2025 End: 07-20-2025 take 1 tablet by mouth once daily loratadine 5 mg chewable tablet Indications: Seasonal allergic rhinitis, unspecified trigger Take 1 tablet by mouth once daily. 90 tablet 1 01/21/2025 07/20/2025 Active Magnesium Hydroxide (2 sources) Start: 05-02-2025 take 1 mL by mouth once as needed Magnesium Hydroxide (Milk Of Magnesia) 400 mg/5 mL suspension Active 30 mL PO ONCE as needed May 02, 2025 12:00am memantine hydrochloride 10 mg oral tablet (20 sources) [id number] ate Receptor Antagonist Start: 08-21-2019 End: 01-21-2025 take 1 tablet by mouth once daily memantine (NAMENDA) 10 mg tablet Indications: Mixed dementia (HCC) Take 1 tablet by mouth once daily. 90 tablet 3 01/21/2025 Active 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: Take 1 tablet by mary once daily. 24 hr metoprolol succinate 25 mg extended release oral tablet (20 sources) beta-Adrenergic Gen Start: 05-02-2025 take 1 tablet by mouth once daily Metoprolol Succinate 25 mg tablet extended release 24 hr Active 25 mg PO daily May 02, 2025 12:00am Start: 08-30-2024 End: 01-21-2025 take 1 tablet by mouth once daily metoprolol succinate ER (TOPROL XL) 25 mg 24 hr tablet Indications: Paroxysmal atrial fibrillation (HCC) , Peripheral arterial disease , Aortic valve stenosis, etiology of cardiac valve disease unspecified Take 1 tablet by mouth once daily. 90 tablet 3 01/21/2025 Active Start: 04-10-2014 End: 05-02-2025 take 1 tablet by mouth once daily Metoprolol Succinate 50 MG tablet Discontinued 50 mg PO DAILY April 10, 2014 12:00am May 02, 2025 10:36am 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: Take 1 tablet by mary once daily. nitroglycerin 0.4 mg sublingual tablet (20 sources) Nitrate Vasodilator Start: 02-05-2019 Nitroglycerin 0.4 mg tablet, sublingual Active 0.4 mg SL every 5 to 15 minutes August 21, 2019 1:00am 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: Dissolve 1 tablet un romeo the tongue as needed. for chest pain,every 5 min x3 Non-Adherent Bandage (TELFA) 6 X 3 " bndg (7 sources) Start: 12-22-2023 End: 03-21-2024 Non-Adherent Bandage (TELFA) 6 X 3 " bndg Indications: Abrasion of arm, left, initial encounter Apply 1 Each to affected area once daily. 30 Each 2 12/22/2023 03/21/2024 Active 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: Apply 1 Each to affe cted area once daily. perflutren lipid microspheres 1.3 mL in NaCl (PF) 0.9% 10 mL injection (DEFINITY) (20 sources) Start: 02-13-2023 End: 05-14-2024 perflutren lipid microspheres 1.3 mL in NaCl (PF) 0.9% 10 mL injection (DEFINITY) Start: 08-15-2022 End: 11-14-2023 perflutren lipid microsphere s 1.3 mL in NaCl (PF) 0.9% 10 mL injection (DEFINITY) Start: 10-20-2020 End: 01-19-2022 perflutren lipid microsphere s 1.3 mL in NaCl (PF) 0.9% 10 mL injection (DEFINITY) 125 ml sodium chloride 9 mg/ ml prefilled syringe (20 sources) Start: 08-15-2022 End: 05-14-2024 sodium chloride 0.9 % (flush ) 10 mL (BD POSIFLUSH) Start: 10-20-2020 End: 01-19-2022 sodium chloride 0.9 % (flush ) 10 mL (BD POSIFLUSH) sodium phosphate, dibasic 59.3 mg/ml / sodium phosphate, monobasic 161 mg/ml enema (2 sources) Start: 05-02-2025 Sodium Phospha tahmina (Fleet Enema) 19-7 gram/118 mL enema Active 118 mL RC ONCE as needed May 02, 2025 12:00am warfarin sodium 5 mg oral tablet (20 sources) Vitamin K Antagonist Start: 04-08-2025 End: 04-08-2026 warfarin (COUMADIN) 5 mg tablet Indications: Paroxysmal atrial fibrillation (HCC) Take as directed, up to 2 tablets daily. 180 tablet 3 04/08/2025 04/08/2026 Active Start: 10-17-2023 End: 04-08-2025 warfarin (COUMADIN) 5 mg tab let Indications: Paroxysmal atrial fibrillation (HCC) 7.5 mg on Monday, 5 mg all other days or as directed 100 tablet 5 10/17/2023 04/08/2025 Discontinued Start: 12-30-2020 End: 05-19-2022 warfarin (COUMADIN) 5 mg tab let Indications: Paroxysmal atrial fibrillation (HCC) 7.5 mg on Monday, 5 mg all other days or as directed 100 tablet 5 05/19/2022 Active Start: 08-27-2019 End: 04-08-2025 Warfarin 5 mg tablet Active 5 mg PO .COMPLEX August 27, 2019 3:39pm Dr. Reno Manages Start: 08-21-2019 End: 08-27-2019 take 1.5 tablets by mouth every week Warfarin 5 mg tablet Discontinued 5 mg PO .COMPLEX August 21, 2019 1:00am August 27, 2019 3:39pm 5 mg PO 1.5 tablets (7.5 mg) on Mon and ; 5 mg all other days of the week;or as directed 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: 7.5 mg on Monday, 5 mg all other days or as directed Completed/Discontinued Medications Medication Drug Class(es) Dates Sig (Normalized) Sig (Original) acetaminophen 325 mg / HYDROcodone bitartrate 5 mg oral tablet (2 sources) Opioid Agonist Start: 03-07-2025 End: 05-02-2025 Hydrocodone-Acetam inophen 5-325 mg tablet Discontinued 1 {tbl} PO 4 TIMES DAILY as needed 0 March 07, 2025 12:00am May 02, 2025 10:37am 1 ml enoxaparin sodium 100 mg/ml prefilled syringe (20 sources) Low Molecular Weight Heparin Start: 07-10-2024 End: 01-21-2025 inject 1 mL by subcutaneous injection once daily enoxaparin (LOVENOX) 100 mg/mL syrg Inject 1 mL subcutaneously once daily. Inject entire contents of one(1) syringe 8 Each 07/10/2024 01/21/2025 Discontinued (Course of therapy completed) glimepiride 2 mg oral tablet (20 sources) Sulfonylurea Start: 02-04-2019 End: 05-02-2025 take 1 tablet by mouth once daily Glimepiride 2 MG tablet Discontinued 2 mg PO DAILY February 04, 2019 12:00am May 02, 2025 10:37am 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: Take 1 tablet by mary th daily with breakfast. hydroCHLOROthiazide 12.5 mg / lisinopril 20 mg oral tablet (20 sources) Thiazide Diuretic, Angiotensin Converting Enzyme Inhibitor Start: 01-19-2022 End: 07-03-2024 take 1 tablet by mouth once daily in the morning lisinopril-hydroCH LOROthiazide (ZESTORETIC) 20-12.5 mg per tablet Take 1 tablet by mouth every morning. 90 tablet 1 10/17/2023 03/26/2024 Discontinued Start: 01-26-2017 End: 01-19-2022 Lisinopril-Hydrochlorothiazi de 20-25 mg tablet Discontinued 1 {tbl} PO DAILY August 21, 2019 1:00am March 12, 2020 1:24pm 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: Take 1 tablet by mary th every morning. Take 1 tablet by mary th once daily. iv contrast (will be provided with radiology test) (20 sources) Start: 024 inject 1 dose intravenously once iv contrast (will be provided with radiology test) Indications: Nonrheumatic aortic valve stenosis CTA ABD/PEL - No IV access, insert saline lock prior to the sedation, infusion, injection for imaging exam. Discontinue saline lock post exam. If Pt. has a central line or IVAD, may access for administration according to line specific nursing protocol. Once exam is complete flush line and de-access according to line specific nursing protocol in the CT contrast administration guidelines link. 1 Each 07/10/2024 Active linagliptin 5 mg oral tablet (2 sources) Dipeptidyl Peptidase 4 Inhibitor Start: End: take 1 tablet by mouth once daily Linagliptin 5 MG tablet Discontinued 5 mg PO DAILY February 04, 2019 12:00am August 21, 2019 2:37pm melatonin 3 mg oral tablet (20 sources) Start: End: take 1 tablet by mouth once daily at bedtime melatonin 3 mg tablet Indications: Chronic insomnia Take 1 tablet by mouth daily at bedtime. 60 tablet 1 12/22/2023 06/06/2024 Discontinued (Discontinued by Patient) 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: Take 1 tablet by mary th daily at bedtime. metFORMIN hydrochloride 500 mg oral tablet (5 sources) Biguanide Start: End: take 1 tablet by mouth twice daily Metformin 500 mg tablet Discontinued 500 mg PO TWICE A DAY August 21, 2019 1:00am May 02, 2025 10:37am Start: 04-10-2014 End: 08-21-2019 Metformin 1,000 MG tablet Di scontinued 500 mg PO TWICE A DAY April 10, 2014 12:00am August 21, 2019 2:33pm 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: Take 1 tablet by mary th twice daily with meals. pioglitazone 30 mg oral tablet (20 sources) Peroxisome Proliferator Receptor alpha Agonist, Peroxisome Proliferator Receptor gamma Agonist, Thiazolidinedione Start: 02-05-20 End: 05-02-20 take 1 tablet by mouth once daily Pioglitazone 30 MG tablet Discontinued 30 mg PO DAILY February 04, 2019 12:00am May 02, 2025 10:37am 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: Take 1 tablet by mary th once daily. sertraline 50 mg oral tablet (2 sources) Serotonin Reuptake Inhibitor Start: 08-21-20 End: 09-28-20 take 1 tablet by mouth once daily Sertraline 50 mg tablet Discontinued 50 mg PO DAILY August 21, 2019 1:00am September 28, 2020 1:59pm Problems Active Problems Problem Classification Problem Date Documented Date Episodic/Chronic Acute cerebrovascular disease (2 sources) Cerebrovascular accident; Translations: [Cerebral infarction, unspecified] Onset: 9 08-21-2019 Chronic 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: CT demonstrated suba cute to chonic cortical infarct in right middle frontal gyrus. Aortic; peripheral; and visceral artery aneurysms (20 sources) Ectasia of thoracic aorta; Translations: [Thoracic aortic ectasia] Onset: 8 01-17-2019 Chronic 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: 06/07/2018 per Chest CTA: There is atherosclerotic calcification of the thoracic aorta with mild fusiform ectasia of the descending component measuring 3.2 X 3.1 cm Cardiac dysrhythmias (20 sources) Paroxysmal atrial fibrillation; Translations: [Paroxysmal atrial fibrillation] Onset: 9 03-05-2019 Chronic Chronic kidney disease (20 sources) Chronic kidney disease stage 3; Translations: [Stage 3 chronic kidney disease, unspecified whether stage 3a or 3b CKD (HCC)] Onset: 8 Resolved: 4 Chronic Chronic kidney disease (1 source) Chronic kidney disease; Translations: [Hypertensive kidney disease with stage 3 chronic kidney disease, unspecified whether stage 3a or 3b CKD (HCC)] Onset: 0 Chronic obstructive pulmonary disease and bronchiectasis (20 sources) Chronic obstructive lung disease; Translations: [Chronic obstructive pulmonary disease, unspecified] Resolved: 0 01-29-2020 Chronic Conduction disorders (20 sources) First degree atrioventricular block; Translations: [Atrioventricular block, first degree] Onset: 3 08-14-2023 Chronic Deficiency and other anemia (1 source) Anemia in chronic kidney disease; Translations: [Anemia in chronic kidney disease, unspecified CKD stage] Onset: 4 Chronic Deficiency and other anemia (5 sources) Anemia; Translations: [Anemia, unspecified] 03-26-2024 Episodic Delirium, dementia, and amnestic and other cognitive disorders (20 sources) Mixed cortical and subcortical vascular dementia ; Translations: [Vascular dementia with behavioral disturbance] Onset: 0 Resolved: 3 Chronic Diabetes mellitus with complications (20 sources) Type 2 diabetes mellitus; Translations: [Type 2 diabetes mellitus with diabetic chronic kidney disease] Onset: 0 Chronic Diabetes mellitus without complication (1 source) Diabetes mellitus without complication; Translations: [Type 2 diabetes mellitus with stage 3 chronic kidney disease, without long-term current use of insulin, unspecified whether stage 3a or 3b CKD (HCC)] Onset: 0 Disorders of lipid metabolism (20 sources) Mixed hyperlipidemia; Translations: [Mixed hyperlipidemia] Onset: 5 08-10-2015 Chronic E Codes: Fall (1 source) Unspecified fall, initial encounter; Translations: [Fall, initial encounter] Onset: 5 Episodic Essential hypertension (20 sources) Essential hypertension; Translations: [Essential (primary) hypertension] Onset: 5 Chronic Fracture of upper limb (9 sources) Unspecified fracture of shaft of humerus, unspecified arm, initial encounter for closed fracture; Translations: [Closed fracture of upper end of humerus] Onset: 5 03-07-2025 Episodic Heart valve disorders (20 sources) Nonrheumatic aortic (valve) stenosis; Translations: [Aortic stenosis, non-rheumatic ] Onset: 8 Chronic 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: Moderate per echo done @ [facility], due to calcification Hyperplasia of prostate (20 sources) Benign prostatic hypertrophy with outflow obstruction; Translations: [Benign prostatic hyperplasia with lower urinary tract symptoms] Onset: 6 02-11-2016 Chronic Hypertension with complications and secondary hypertension (20 sources) Chronic kidney disease stage 3 due to hypertension; Translations: [Hypertensive chronic kidney disease with stage 1 through stage 4 chronic kidney disease, or unspecified chronic kidney disease] Onset: 0 Chronic Immunizations and screening for infectious disease (3 sources) Vaccination needed; Translations: [Encounter for immunization] Episodic Inflammation; infection of eye (except that caused by tuberculosis or sexually transmitteddisease) (1 source) Viral conjunctivitis; Translations: [Viral conjunctivitis, unspecified] 01-21-2025 Episodic Miscellaneous mental health disorders (1 source) Chronic insomnia; Translations: [Psychophysiologic insomnia] 12-22-2023 Chronic Mycoses (1 source) Onychomycosis; Translations: [Tinea unguium] 08-14-2023 Episodic Occlusion or stenosis of precerebral arteries (20 sources) Carotid artery occlusion; Translations: [Occlusion and stenosis of unspecified carotid artery] Onset: 4 Resolved: 4 11-11-2016 Chronic Other aftercare (1 source) Other dedicated intermodal truck driver (current) drug therapy; Translations: [Other snf (current) drug therapy] Onset: 5 Episodic Other circulatory disease (2 sources) Disorder of carotid artery; Translations: [Disorder of arteries and arterioles, unspecified] 08-21-2019 Chronic Other connective tissue disease (1 source) Swelling of lower limb; Translations: [Other specified soft tissue disorders] 06-05-2024 Episodic Other diseases of kidney and ureters (3 sources) Renal impairment; Translations: [Disorder of kidney and ureter, unspecified] 08-15-2023 Episodic Other ear and sense organ disorders (1 source) Impacted cerumen of bilateral ears; Translations: [Impacted cerumen, bilateral] 01-21-2025 Episodic Other lower respiratory disease (20 sources) Nodule of lung; Translations: [Solitary pulmonary nodule] Onset: 8 10-26-2020 Episodic Other lower respiratory disease (1 source) Dyspnea on exertion; Translations: [Other forms of dyspnea] 07-10-2024 Episodic Other nutritional; endocrine; and metabolic disorders (20 sources) Obesity; Translations: [Obesity, unspecified] Resolved: 4 06-23-2005 Chronic Other nutritional; endocrine; and metabolic disorders (20 sources) Obese class II; Translations: [Obesity, unspecified] Onset: 2 Chronic Other screening for suspected conditions (not mental disorders or infectious disease) (20 sources) Electrocardiogram abnormal; Translations: [Abnormal electrocardiogram [ECG] [EKG]] Onset: 3 08-14-2023 Episodic 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: Inferior infarct, ag e undetermined; Anterior infarct, age undetermined, first degree AV block Other upper respiratory disease (1 source) Seasonal allergic rhinitis; Translations: [Other seasonal allergic rhinitis] 01-21-2025 Chronic Gladis-; endo-; and myocarditis; cardiomyopathy (except that caused by tuberculosis or sexually transmitted disease) (1 source) Endocarditis, valve unspecified; Translations: [Valvular heart disease] Onset: 4 Chronic Peripheral and visceral atherosclerosis (20 sources) Peripheral vascular disease, unspecified; Translations: [Peripheral vascular disease, unspecified] Onset: 8 Chronic Superficial injury; contusion (1 source) Abrasion of upper limb; Translations: [Abrasion of left upper arm, initial encounter] 12-22-2023 Episodic Syncope (2 sources) Syncope; Translations: [Syncope and collapse] Episodic Unclassified (1 source) Unknown / UNK(Unknown) Onset: 8 Unclassified (1 source) Aortic Stenosis Onset: 4 Unclassified (2 sources) Closed fracture of right proximal humerus Unclassified (2 sources) S42.201A - Unspecified fracture of upper end of right humerus, initial encounter for closed fracture Past or Other Problems Problem Classification Problem Date Documented Date Episodic/Chronic Biliary tract disease (20 sources) Biliary calculus; Translations: [Calculus of gallbladder without cholecystitis without obstruction] Onset: 05-03-2024 05-03-2024 Episodic Diabetes mellitus without complication (20 sources) Abnormal glucose level; Translations: [Other abnormal glucose] Onset: 10-12-2005 Resolved: 10-02-2006 10-02-2006 Episodic Neoplasms of unspecified nature or uncertain behavior (20 sources) Neoplasm of uncertain behavior of skin; Translations: [Neoplasm of uncertain behavior of skin] Onset: 03-14-2019 Resolved: 08-14-2023 03-14-2019 Episodic Other aftercare (20 sources) Long-term current use of anticoagulant; Translations: [[facility] (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] Onset: 02-04-2020 02-04-2020 Episodic Other aftercare (2 sources) 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; Translations: [[facility] (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] Onset: 02-04-2020 Episodic Other circulatory disease (20 sources) Cardiovascular finding; Translations: [Other specified symptoms and signs involving the circulatory and respiratory systems] Resolved: 07-20-2016 07-20-2016 Episodic Other connective tissue disease (20 sources) Adhesive capsulitis of right shoulder; Translations: [Adhesive capsulitis of right shoulder] Onset: 05-15-2018 05-15-2018 Episodic Other connective tissue disease (20 sources) Pain in limb; Translations: [Pain in unspecified limb] Onset: 02-15-2008 Resolved: 04-22-2009 04-22-2009 Episodic Other ear and sense organ disorders (20 sources) Impacted cerumen; Translations: [Impacted cerumen, unspecified ear] Resolved: 10-12-2005 10-12-2005 Episodic Other lower respiratory disease (2 sources) Other forms of dyspnea; Translations: [Dyspnea on exertion] Onset: 07-10-2024 Episodic Other non-traumatic joint disorders (20 sources) Shoulder joint pain; Translations: [Pain in unspecified shoulder] Onset: 12-07-2009 Resolved: 01-29-2020 01-29-2020 Episodic Other nutritional; endocrine; and metabolic disorders (20 sources) Metabolic syndrome X; Translations: [Dysmetabolic syndrome X] Onset: 06-24-2005 Resolved: 11-27-2009 11-27-2009 Chronic Other skin disorders (20 sources) Inflamed seborrheic keratosis; Translations: [Inflamed seborrheic keratosis] Onset: 03-14-2019 Resolved: 08-14-2023 03-14-2019 Episodic Other skin disorders (20 sources) Actinic keratosis; Translations: [Actinic keratosis] Onset: 01-26-2011 Resolved: 01-29-2020 10-12-2005 Episodic Other skin disorders (20 sources) Seborrheic keratosis; Translations: [Other seborrheic keratosis] Onset: 01-26-2011 Resolved: 01-29-2020 01-29-2020 Episodic Other skin disorders (20 sources) Skin tag; Translations: [Unspecified hypertrophic and atrophic conditions of skin] Onset: 01-26-2011 Resolved: 05-24-2018 03-29-2011 Episodic Unclassified (20 sources) Increased frequency of urination; Translations: [Frequency] Onset: 02-11-2016 Resolved: 03-26-2024 02-11-2016 Results Test Name Value Interpretation Reference Range Facility Prothrombin Time w/INRon INR Coag (PPP) [Relative time] 4.1 {INR} Invalid Interpretation Code [facility] 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: Order Comment: FLORES RSTICK CONFIRMATION Result Comment: CRIT ICAL VALUE CALLED TO IRMA SOLOMON (OLS.SW) 05/06/25 0801 Travis Yost. RESULTS READ BACK BY SAME. Performed By: #### L 406.8443 #### [facility] [address] [place], [address] PT Coag (PPP) [Time] 40.8 s High 11.7-14.9 [facility] 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: Order Comment: FINGE RSTICK CONFIRMATION Performed By: #### L 300.3900 #### [facility] [address] [place], [place], [address] Protime w/INR Fingerstickon 05-06-2025 INR Coag (PPP) [Relative time] 4.3 {INR} Invalid Interpretation Code [facility] 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: Result Comment: Crit ical Value > 4.0 Performed By: #### L 9200.0000 ####[facility] [address] [place], [address] Protime Coagsen 42.3 SEC High 11.7-14.9 [facility] 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: Performed By: #### L 9200.0000 ####[facility] [address] [place], [place], [address] Orthopedic Visit Reporton Orthopedic Visit Report [facility] [facility] [address] [place], [place] [address] OFFICE VISIT Date of Service: 05/02/25 MR#: [id number] Acct: [id number] Name: CAL MITCHELL Rep #: [id number] : 1945 Provider: Dr. David granados DO Age/Sex: 79/M Location: [facility] Status: Signed Intake Vital Signs 03/07/25 12:57 Height 5 ft 10 in Intake Visit Reasons: RIGHT HUMERUS Chief Complaint: Right Humerus Accompanied by: Son-In-Law Is patient in pain?: Yes Allergies Environmental Allergies: Uncoded (seasonal) Allergy (Severe, Verified 05/02/25 10:38) Hives Medications ???Medication ???Instructions ???Recorded ???Confirmed ???Type clopidogrel 75 mg tablet 75 mg PO DAILY 02/04/19 05/02/25 H istory finasteride 5 mg tablet 5 mg PO DAILY 02/04/19 05/02/25 Hi story memantine 10 mg tablet (Namenda) 10 mg PO DAILY 08/21/19 05/02/25 H istory nitroglycerin 0.4 mg sublingual 0.4 mg sublingual Q5-15M 08/21/19 05/02/25 History tablet warfarin 5 mg tablet 5 mg PO .COMPLEX 08/27/19 05/02/25 History atorvastatin 80 mg tablet 80 mg PO QHS 03/12/20 05/02/25 His tory escitalopram oxalate 10 mg tablet 10 mg PO DAILY 09/28/20 05/02/25 History (Lexapro) lisinopril 10 mg tablet 10 mg PO QDAY 03/07/25 05/02/25 Hi story loratadine 5 mg/5 mL oral solution 5 mg PO ONCE 03/07/25 05/02/25 H istory (Allergy Relief (loratadine)) acetaminophen 500 mg tablet 325 mg PO Q8H PRN 05/02/25 5 History acetaminophen 650 mg rectal 650 mg OH Q4H PRN 05/02/25 5 History suppository aluminum-mag hydroxide-simethicone 30 ml PO Q4H PRN 05/02/25 History 200 mg-200 mg-20 mg/5 mL oral susp (Antacid) bisacodyl 10 mg rectal suppository 10 mg OH QDAY PRN 05/02/2505/02 History (Dulcolax (bisacodyl)) dextrose 40 % oral gel (Glucose 10 g PO Q15M PRN 05/02/25 05/02/25 History Gel) glucagon 1 mg solution for 1 mg subcut Q20M PRN 05/02/2504/15 History injection (Glucagon Emergency Kit) guaifenesin 100 mg/5 mL oral liquid 200 mg PO Q4H PRN 05/02/2504/15 History magnesium hydroxide 400 mg/5 mL 30 ml PO ONCE PRN 05/02/25 5 History oral suspension (Milk of Magnesia) metoprolol succinate 25 mg 25 mg PO QDAY 05/02/25 05/02/25 Hi story tablet,extended release 24 hr sodium phosphates 19 gram-7 118 ml OH ONCE PRN 05/02/25 History gram/118 mL enema (Fleet Enema) Have you fallen in the past year?: Yes PFSH Medical History Closed fracture of right proximal humerus Hypertension Nonrheumatic aortic (valve) stenosis First degree AV block Abnormal EKG Paroxysmal atrial fibrillation Lung nodule Chronic kidney disease, stage 3 BPH (benign prostatic hyperplasia) Obesity Diabetes mellitus, type II COPD (chronic obstructive pulmonary disease) Essential hypertension Ectatic thoracic aorta Hyperlipidemia Carotid artery disease CVA (cerebral vascular accident) (01/28/19) Surgical History History of right-sided carotid endarterectomy (04/17/14) Family History Mother Congestive heart failure Grandfather CVA (cerebral vascular accident) Social History Smoking Status: Former smoker quit date: 12/05/85 pack-years: 20 HPI RIGHT HUMERUS Details: This documentation accurately reflects the service provided and the decisions made by me, Dr. David Navarrete, DO 05/02/25 0811. Part of today???s visit was documented by Kira Smith ATC, acting as scribe. CAL MITCHELL is a 79 year old M here today for follow-up on a right proximal humerus fracture. He denies any pain or issues down the arm at all. Patient is new to me, however requested transfer to my care. Patient continues to have pain in the shoulder. Patient is currently in physical therapy at the facility he is at and he states it is going okay. He is currently taking Tylenol PRN for pain but if it is not a written order they will not give it to him regularly. Patient ambulates with a cane normally but comes in today in a wheelchair. 03/07/2025 Dr. García visit: 79 year old M here today for R proximal humerus fracture. Patient fell 2 days ago. He lives at home. He is here today with his son and eiimdmmw-ev-won. Usually ambulates with a walker or a cane. Had a fall. Was mainly complaining about pain to the upper extremity was seen in a peripheral hospital referred here given a sling they found approximately wrist fracture on the right side. The patient does not speak very much but he converses overall well he is rlptw-igwe-jmibsfyi fairly stoic. Plan:79-year-old man with a (more content not included)... Normal [facility] Shoulder min 2 Viewson 05-02 Shoulder min 2 Views [facility] Imaging Services [address] [place] [address] Shoulder min 2 Views MR#: [id number] Acct: [id number] Name: CAL MITCHELL Rep #: [id number] : 1945 M 79 From: Magdalena Lala PCP: Dr. Guanakito Reno MD Status: DEP AMB Study: Shoulder min 2 Views Date of Exam: 05/02/25 Exam# [id number] Ordering Dr: David Navarrete DO PROCEDURE: SHOULDER MIN 2 VIEWS 05/02/2025 REASON FOR EXAM: FRACTURE FOLLOW UP TECHNIQUE: Four views right shoulder COMPARISON: None FINDINGS: Four views of the right shoulder demonstrate diffuse osteopenia of the osseous structures. There is a comminuted fracture involving the proximal right humeral head/ neck region. The fracture appears to be slightly impacted. There is widening of the space between the acromion and humeral head. Mild arthritic changes are seen involving the acromioclavicular joint. Mild arthritic changes are seen involving the glenohumeral joint. Visualized right ribs are unremarkable. No displaced right rib fractures are noted. There is no right lung contusion or pneumothorax identified. RAD/Shoulder min 2 Views IMPRESSION: Slightly impacted, comminuted fracture involving the humeral head neck region. There is slight widening of the space between the acromion and the humerus. Mild arthritic changes involving the acromioclavicular joint. Mild arthritic changes involving the glenohumeral joint. Reading Location: [id number] CC: Dr. David Navarrete DO; Dr. Guanakito Reno MD Dental Laboratory Technician Apprentice: Signed Normal [facility] International normalized rat io (INR) calculationOrdered By: Josafat Simon on 05-01-2025 INR Coag (Bld) [Relative time] 3.2 {INR} [facility] Prothrombin Time w/INRon INR Coag (PPP) [Relative time] 3.2 {INR} Normal [facility] 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: Performed By: #### L 300.3900 ####[facility] [address] [place], [address] PT Coag (PPP) [Time] 33.6 s High 11.7-14.9 [facility] 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: Performed By: #### L 300.3900 ####[facility] [address] [place], [place], [id number] Prothrombin timeOrdered By: Josafat Simon on 05-01-2025 PT Coag (PPP) [Time] 33.6 s High 11.7-14.9 [facility] International normalized rat io (INR) calculationOrdered By: Josafat Simon on 04-29-2025 INR Coag (Bld) [Relative time] 3.1 {INR} [facility] Prothrombin Time w/INRon INR Coag (PPP) [Relative time] 3.1 {INR} Normal [facility] 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: Performed By: #### L 300.3900 #### [facility] Laboratory [address] [place], [address] Prothrombin timeOrdered By: Josafat Simon on 04-29-2025 PT Coag (PPP) [Time] 32.2 s High 11.7-14.9 [facility] 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: Performed By: #### L 300.3900 #### [facility] [address] [place], [address] International normalized rat io (INR) measurement by fingerstickOrdered By: Josafat Simon on 04-24-2025 INR Coag (BldC) [Relative time] 3.5 [facility] 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: Critical Value > 4.0 Protime w/INR Fingerstickon 04-24-2025 INR Coag (PPP) [Relative time] 3.5 {INR} Normal [facility] 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: Result Comment: Crit ical Value > 4.0 Performed By: #### L 9200.0000 #### [facility] [address] [place], [address] Protime Coagsen 35.4 SEC High 11.7-14.9 [facility] 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: Performed By: #### L 9200.0000 #### [facility] [address] [place], [address] Whole blood prothrombin time Ordered By: Josafat Simon on 04-24-2025 PT Coag (Bld) [Time] 35.4 s High 11.7-14.9 [facility] Anion gap in Serum or Plasma Ordered By: Bianka Gonzalez on 04-17-2025 Anion gap [Moles/Vol] 10 mmol/L 5-15 [facility] BUN/creatinine ratioOrdered By: Bianka Gonzalez on 04-17-2025 Urea nitrogen/Creatinine [Mass ratio] 21.1 mg/mg High 10-20 [facility] Basic Metabolic Profile (BMP )on 04-17-2025 BUN/CRE 21.1 RATIO High -20 [facility] 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: Order Comment: 213 Performed By: #### L 500.2500, L300.3900, L100.0500 #### [facility] [address] [place], [address] Calcium [Mass/Vol] 8.2 mg/dL Normal 7.6-11.0 [facility] 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: Order Comment: 213 Performed By: #### L 500.2500, L300.3900, L100.0500 #### [facility] [address] [place], [address] Chloride [Moles/Vol] 111 mmol/L High 98-108 [facility] 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: Order Comment: 213 Performed By: #### L 500.2500, L300.3900, L100.0500 #### [facility] [address] [place], [address] CO2 [Moles/Vol] 17.2 mmol/L Low 21.0-32.0 [facility] 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: Order Comment: 213 Performed By: #### L 500.2500, L300.3900, L100.0500 #### [facility] [address] [place], [address] Creatinine [Mass/Vol] 2.45 mg/dL High 0.70-1.20 [facility] 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: Order Comment: 213 Performed By: #### L 500.2500, L300.3900, L100.0500 #### [facility] [address] [place], [address] GAP 10 Normal 5-15 [facility] 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: Order Comment: 213 Performed By: #### L 500.2500, L300.3900, L100.0500 #### [facility] [address] [place], [address] GFR/1.73 sq M.predicted among non-blacks MDRD (S/P/Bld) [Vol rate/Area] 26 mL/min/{1.73_m2} Low >60 [facility] 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: Order Comment: 213 Result Comment: mL/m in/1.73m2 CKD-EPI Creatinine Equation (2020) Performed By: #### L 500.2500, L300.3900, L100.0500 #### [facility] [address] [place], [address] Glucose [Mass/Vol] 137 mg/dL High 70-99 [facility] 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: Order Comment: 213 Performed By: #### L 500.2500, L300.3900, L100.0500 #### [facility] [address] [place], [address] Potassium [Moles/Vol] 4.9 mmol/L Normal 3.3-5.1 [facility] 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: Order Comment: 213 Performed By: #### L 500.2500, L300.3900, L100.0500 #### [facility] [address] [place], [address] Sodium [Moles/Vol] 139 mmol/L Normal 133-145 [facility] 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: Order Comment: 213 Performed By: #### L 500.2500, L300.3900, L100.0500 #### [facility] [address] [place], [address] Urea nitrogen [Mass/Vol] 52 mg/dL High 4-19 [facility] 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: Order Comment: 213 Performed By: #### L 500.2500, L300.3900, L100.0500 #### [facility] [address] [place], [address] CBC-Complete Blood Cnt No Di ffon 04-17-2025 Erythrocyte distribution width (RBC) [Ratio] 16.4 % High 11.6-14.6 [facility] 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: Order Comment: 213 Performed By: #### L 500.2500, L300.3900, L100.0500 #### [facility] [address] [place], [address] Hematocrit (Bld) [Volume fraction] 35.2 % Low 40-54 [facility] 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: Order Comment: 213 Performed By: #### L 500.2500, L300.3900, L100.0500 #### [facility] [address] [place], [address] Hemoglobin (Bld) [Mass/Vol] 10.6 g/dL Low 13.0-16.5 [facility] 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: Order Comment: 213 Performed By: #### L 500.2500, L300.3900, L100.0500 #### [facility] [address] [place], [address] MCH (RBC) [Entitic mass] 29.2 pg Normal 27.0-32.0 [facility] 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: Order Comment: 213 Performed By: #### L 500.2500, L300.3900, L100.0500 #### [facility] [address] [place], [address] MCHC (RBC) [Mass/Vol] 30.1 g/dL Low 32-36 [facility] 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: Order Comment: 213 Performed By: #### L 500.2500, L300.3900, L100.0500 #### [facility] [address] [place], [address] MCV (RBC) [Entitic vol] 97.0 fL High 80-94 [facility] 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: Order Comment: 213 Performed By: #### L 500.2500, L300.3900, L100.0500 #### [facility] [address] [place], [address] Platelet mean volume (Bld) [Entitic vol] 10.0 fL Normal 6.2-12.0 [facility] 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: Order Comment: 213 Performed By: #### L 500.2500, L300.3900, L100.0500 #### [facility] [address] [place], [address] Platelets (Bld) [#/Vol] 161 10*3/uL Normal 150-450 [facility] 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: Order Comment: 213 Performed By: #### L 500.2500, L300.3900, L100.0500 #### [facility] [address] [place], [address] RBC (Bld) [#/Vol] 3.63 10*6/uL Low 4.6-6.2 [facility] 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: Order Comment: 213 Performed By: #### L 500.2500, L300.3900, L100.0500 #### [facility] [address] [place], [address] RDW SD 58.6 fl High 35.1-43.9 [facility] 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: Order Comment: 213 Performed By: #### L 500.2500, L300.3900, L100.0500 #### [facility] [address] [place], [address] WBC (Bld) [#/Vol] 7.2 10*3/uL Normal 4.4-11.0 [facility] 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: Order Comment: 213 Performed By: #### L 500.2500, L300.3900, L100.0500 #### [facility] [address] [place], [address] Carbon dioxide, total [Moles /volume] in Central venous bloodOrdered By: Bianka Gonzalez on 04-17-2025 CO2 [Moles/Vol] 17.2 mmol/L Low 21.0-32.0 [facility] Chloride assayOrdered By: Josr Gonzalez on 04-17-2025 Chloride [Moles/Vol] 111 mmol/L High 98-108 [facility] Erythrocyte distribution wid th ratioOrdered By: Bianka Gonzalez on 04-17-2025 Erythrocyte distribution width (RBC) [Ratio] 16.4 % High 11.6-14.6 [facility] Erythrocyte distribution wid th standard deviationOrdered By: Bianka Gonzalez on 04-17-2025 Erythrocyte distribution width (RBC) [Ratio] 58.6 fl High 35.1-43.9 [facility] Glomerular filtration rate ( GFR) estimation/1.73 sq m using serum, plasma, or whole bOrdered By: Bianka Gonzalez on 04-17-2025 GFR/1.73 sq M.predicted among non-blacks MDRD (S/P/Bld) [Vol rate/Area] 26 mL/min/{1.73_m2} Low >60 [facility] 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: mL/min/1.73m2 CKD-EP I Creatinine Equation (2020) Hematocrit Auto (Bld) [Volum e fraction]Ordered By: Bianka Gonzalez on 04-17-2025 Hematocrit (Bld) [Volume fraction] 35.2 % Low 40-54 [facility] Hemoglobin measurementOrdere d By: Bianka Gonzalez on 04-17-2025 Hemoglobin (Bld) [Mass/Vol] 10.6 g/dL Low 13.0-16.5 [facility] International normalized rat io (INR) calculationOrdered By: Bianka Gonzalez on 04-17-2025 INR Coag (Bld) [Relative time] 2.7 {INR} [facility] MCV (mean corpuscular volume ) determinationOrdered By: Bianka Gonzalez on 04-17-2025 MCV (RBC) [Entitic vol] 97.0 fL High 80-94 [facility] Mean corpuscular hemoglobin (MCH) determinationOrdered By: Bianka Gonzalez on 04-17-2025 MCH (RBC) [Entitic mass] 29.2 pg 27.0-32.0 [facility] Mean corpuscular hemoglobin concentration (MCHC) determinationOrdered By: Bianka Gonzalez on 04-17-2025 MCHC (RBC) [Mass/Vol] 30.1 g/dL Low 32-36 [facility] Mean platelet volume determi nationOrdered By: Bianka Gonzalez on 04-17-2025 Platelet mean volume (Bld) [Entitic vol] 10.0 fL 6.2-12.0 [facility] Platelet countOrdered By: Josr Gonzalez on 04-17-2025 Platelets (Bld) [#/Vol] 161 10*3/uL 150-450 [facility] Potassium measurement (mass/ volume)Ordered By: Bianka Gonzalez on 04-17-2025 Potassium (Unsp spec) [Mass/Vol] 4.9 mmol/L 3.3-5.1 [facility] Prothrombin Time w/INRon INR Coag (PPP) [Relative time] 2.7 {INR} Normal [facility] 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: Order Comment: 213 Performed By: #### L 500.2500, L300.3900, L100.0500 #### [facility] [address] [place], [address] PT Coag (PPP) [Time] 29.7 s High 11.7-14.9 [facility] 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: Order Comment: 213 Performed By: #### L 500.2500, L300.3900, L100.0500 #### [facility] [address] [place], [address] Prothrombin timeOrdered By: Bianka Gonzalez on 04-17-2025 PT Coag (PPP) [Time] 29.7 s High 11.7-14.9 [facility] RBC Auto (Bld) [#/Vol]Ordere d By: Bianka Gonzalez on 04-17-2025 RBC (Bld) [#/Vol] 3.63 10*6/uL Low 4.6-6.2 [facility] Serum creatinine measurement (mass/volume)Ordered By: Bianka Gonzalez on 04-17-2025 Creatinine [Mass/Vol] 2.45 mg/dL High 0.70-1.20 [facility] Serum glucose measurement (m ass/volume)Ordered By: Bianka Gonzalez on 04-17-2025 Glucose [Mass/Vol] 137 mg/dL High 70-99 [facility] Serum or plasma calcium cornelius urement (mass/volume)Ordered By: Bianka Gonzalez on 04-17-2025 Calcium [Mass/Vol] 8.2 mg/dL 7.6-11.0 [facility] Serum or plasma urea nitroge n measurement (mass/volume)Ordered By: Bianka Gnozalez on 04-17-2025 Urea nitrogen [Mass/Vol] 52 mg/dL High 4-19 [facility] Sodium levelOrdered By: Nestor Gonzalez on 04-17-2025 Sodium [Moles/Vol] 139 mmol/L 133-145 [facility] White blood cell (WBC) count Ordered By: Bianka Gonzalez on 04-17-2025 WBC (Bld) [#/Vol] 7.2 10*3/uL 4.4-11.0 [facility] 04-15-2025 CNPN Telephone (PHAMTE) -------- PAULACAL CRAIG ([id number]) 1945 M Date Time Provider Department 04/15/25 [place] PHAMTE During your visit today, we recorded the following information about you: [facility] 04/15/2025 9:12 AM Signed [facility] Anticoagulation Episode Summary Anticoagulation Care Providers Provider Role Specialty Phone number Guanakito Reno MD [facility] [phone] Cal Mitchell is a 79 year old year old male patient being evaluated today for a Telemanagement visit. Patient is currently on the following anticoagulant(s) Warfarin. Labs Lab Results Component Value Date INR 2.6 04/14/2025 INR 2.5 03/23/2025 INR 1.8 (A) 02/19/2025 Lab Results Component Value Date HB 12.5 (L) 01/21/2025 HB 10.3 (L) 07/12/2024 HB 9.5 (L) 04/19/2024 Lab Results Component Value Date HCT 41.2 01/21/2025 HCT 34.7 (L) 07/12/2024 HCT 32.3 (L) 04/19/2024 Lab Results Component Value Date PLT 198 01/21/2025 PLT 190 07/12/2024 PLT 160 04/19/2024 Lab Results Component Value Date CREAT 2.34 (H) 01/21/2025 CREAT 2.40 (H) 07/12/2024 CREAT 2.35 (H) 04/19/2024 No components found for: TBILI3 Lab Results Component Value Date ALT 19 01/21/2025 ALT 23 07/12/2024 ALT 15 03/25/2024 Lab Results Component Value Date AST 23 01/21/2025 AST 25 07/12/2024 AST 19 03/25/2024 Estimated Creatinine Clearance: 31.7 mL/min (A) (based on SCr of 2.34 mg/dL (H)). 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: Anticoagulation Episode Summary Current INR goal: 2.0-3.0 Assessment: INR result of 2.6 is therapeutic Plan: Current Warfarin Dosing As of 04/15/2025 Full warfarin instructions: 5 mg every day Left voice message daughter Advised patient to continue current weekly dose as noted above Next home INR check scheduled on 04/29/2025 Patient advised to call the PAC with any medication changes, bleeding/bruising concerns, recent changes in vitamin k consumption, if any procedures are coming up, if they have been ill or in the hospital, and if they have missed any doses of warfarin. Twin Cole RPh Clinical Pharmacist, Pharmacy Anticoagulation Clinic Pharmacy [facility]tico[facility] Clinic Pager: [phone]. Twin Cole RPh 04/29/2025 8:54 AM Signed Patient was due to test INR today. Will continue to monitor for results. Follow up in one week if no results received. Patient's INR Goal range is - 2.0-3.0 PT INR (no units) Date Value 09/28/2022 1.9 (self reporting) 01/24/2022 2.1 biotel 10/26/2021 2.1 (Biotel) INR (POCT) (no units) Date Value 07/23/2024 1.4 INR Home CoaguChek (no units) Date Value 04/14/2025 2.6 03/23/2025 2.5 02/19/2025 1.8 Patient is in titration phase - No Patient has dosing provided until next INR - Yes Patient is on an injectable anticoagulant - No Stuart Hayes Kim, RPh 05/06/2025 10:59 AM Signed Spoke to patient's daughter. Patient has moved to [facility]. His INRs are monitored there. Will discharge patient from [facility] ([place] Gran[place] 05/06/2025 2:31 PM Signed Pharmacy Anticoagulation Clinic Discharge completed at this time. Patient may be re-referred, if deemed appropriate. Ashley Hameed [facility] ([place]) Pharmacy Anticoagulation Clinic Allergies As of Date: 04/15/2025 (No Known Allergies) Date Reviewed: 03/05/2025 Reviewed by: Jack Holcomb, BENJIE - Fully Assessed Reason for Visit: PAC TRANSFER OF CARE [Other] Prescriptions as of 05/06/2025 - warfarin (COUMADIN) 5 mg tablet Take as directed, up to 2 tablets daily. - warfarin (COUMADIN) 5 mg tablet Take as directed up to 2 tablets daily. - atorvastatin (LIPITOR) 80 mg tablet Take 1 tablet by mouth daily at bedtime. For cholesterol. - clopidogrel (PLAVIX) 75 mg tablet Take 1 tablet by mouth once daily. - escitalopram oxalate (LEXAPRO) 10 mg tablet Take 1 tablet by mouth once daily. - finasteride (PROSCAR) 5 mg tablet Take 1 tablet by mouth once daily. - lisinopril (ZESTRIL) 10 mg tablet Take 1 tablet by mouth once daily. - metoprolol succinate ER (TOPROL XL) 25 mg 24 hr tablet Take 1 tablet by mouth once daily. - memantine (NAMENDA) 10 mg tablet Take 1 tablet by mouth once daily. - loratadine 5 mg chewable tablet Take 1 tablet by mouth once daily. - iv contrast (will be provided with radiology test) CTA ABD/PEL - No IV access, insert saline lock prior to the sedation, infusion, injection for imaging exam. Discontinue saline lock post exam. If Pt. has a central line or IVAD, may access for administration according to line specific nursing protocol. Once exam is complete flush line and de-access according to line specific nursing protocol in the CT contrast administration guidelines link (more content not included)... [facility] Telephone (ENEIDA) -------- CAL MITCHELL ([id number]) 1945 M Date Time Provider Department 04/14/25 GUANAKITO RENO During your visit today, we recorded the following information about you: Jonelle Worley LPN 04/14/2025 12:59 PM Signed Patient son in law Gustavo calling he has been giving the patient Tylenol 500 mg two tablets twice daily since his fracture right shoulder at almost the end of February. He is asking if it is alright that they are still giving it to him? Please advise Guanakito Reno MD 04/14/2025 1:09 PM Signed yes Jonelle Worley LPN 04/14/2025 2:36 PM Signed Phoned Gustavo left message to return call and ask to speak to a nurse. Leidy Malone RN 04/14/2025 3:18 PM Signed Gustavo calls back and notified of provider recommendation below. Voices understanding. Leidy Malone RN Allergies As of Date: 04/14/2025 (No Known Allergies) Date Reviewed: 03/05/2025 Reviewed by: Jack Holcomb RN - Fully Assessed Reason for Visit: Patient Question [7947] Prescriptions as of 04/14/2025 - warfarin (COUMADIN) 5 mg tablet Take as directed, up to 2 tablets daily. - warfarin (COUMADIN) 5 mg tablet Take as directed up to 2 tablets daily. - atorvastatin (LIPITOR) 80 mg tablet Take 1 tablet by mouth daily at bedtime. For cholesterol. - clopidogrel (PLAVIX) 75 mg tablet Take 1 tablet by mouth once daily. - escitalopram oxalate (LEXAPRO) 10 mg tablet Take 1 tablet by mouth once daily. - finasteride (PROSCAR) 5 mg tablet Take 1 tablet by mouth once daily. - lisinopril (ZESTRIL) 10 mg tablet Take 1 tablet by mouth once daily. - metoprolol succinate ER (TOPROL XL) 25 mg 24 hr tablet Take 1 tablet by mouth once daily. - memantine (NAMENDA) 10 mg tablet Take 1 tablet by mouth once daily. - loratadine 5 mg chewable tablet Take 1 tablet by mouth once daily. - iv contrast (will be provided with radiology test) CTA ABD/PEL - No IV access, insert saline lock prior to the sedation, infusion, injection for imaging exam. Discontinue saline lock post exam. If Pt. has a central line or IVAD, may access for administration according to line specific nursing protocol. Once exam is complete flush line and de-access according to line specific nursing protocol in the CT contrast administration guidelines link. - nitroglycerin sublingual (NITROQUICK) 0.4 mg SL tablet Dissolve 1 tablet under the tongue as needed. for chest pain,every 5 min x3 - blood sugar diagnostic (ONETOUCH ULTRA TEST) test strip Test blood sugar(s) one times daily. Dx: 250.00. Insulin: No - Lancets (ONE TOUCH DELICA) Misc lancets Test blood sugar(s) one time daily. Dx: 250.00. Insulin: No Problem List As Of Date 04/14/2025 Noted Resolved Hyperlipidemia, mixed [E78.2] Essential hypertension [I10] Peripheral arterial disease (HCC) [I73.9] Other symptoms involving cardiovascular system * 07/20/2016 ACTINIC KERATOSIS [L57.0] 10/12/2005 IMPACTED CERUMEN [H61.20] 10/12/2005 COPD (chronic obstructive pulmonary disease) (H* 01/29/2020 Obesity, unspecified [E66.9] 07/12/2024 Dysmetabolic Syndrome X [E88.810] 06/24/2005 11/27/2009 OTHER ABNORMAL GLUCOSE [R73.09] 10/12/2005 10/02/2006 PAIN IN LIMB [M79.609] 02/15/2008 04/22/2009 Type 2 diabetes mellitus with stage 3 chronic k*11/27/2009 Pain in joint, shoulder region [M25.519] 12/07/2009 01/29/2020 SK (seborrheic keratosis) [L82.1] 01/26/2011 01/29/2020 AK (actinic keratosis) [L57.0] 01/26/2011 01/29/2020 Skin tags 01/26/2011 03/29/2011 Cutaneous skin tags [L91.8] 03/29/2011 05/24/2018 Occlusion and stenosis of unspecified carotid a*10/25/2013 03/26/2024 Frequency [BMD5085] 02/11/2016 03/26/2024 BPH (benign prostatic hypertrophy) with urinary*02/11/2016 Adhesive capsulitis of right shoulder [M75.01] 05/15/2018 Aortic stenosis [I35.0] 05/24/2018 CKD (chronic kidney disease) stage 3, GFR 30-59*05/24/2018 03/26/2024 Lung nodule [R91.1] 06/07/2018 Ectatic thoracic aorta (HCC) [I77.810] 06/07/2018 Paroxysmal atrial fibrillation (HCC) [I48.0] 03/05/2019 Inflamed seborrheic keratosis [L82.0] 03/14/2019 08/14/2023 Neoplasm of uncertain behavior of skin [D48.5] 03/14/2019 08/14/2023 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4] 04/08/2024 Asymptomatic gallstones [K80.20] 05/03/2024 Bilateral (more content not included)... Normal [facility] CAL MITCHELL ([id number]) 1945 M Date Time Provider Department 03/28/25 [facility]UA[facility]KITO RENO [facility] During your visit today, we recorded the following information about you: Niels Rodriges RN 03/28/2025 1:06 PM Signed Faxed recent ov notes to [facility] per daughter, January request. . January reports she talked to [facility] about patient going to live there and [facility] instructed her to have pcp office send an H AND P to them for review. Allergies As of Date: 03/28/2025 (No Known Allergies) Date Reviewed: 03/05/2025 Reviewed by: Jack Holcomb RN - Fully Assessed Reason for Visit: Faxed to [facility] [Other] Prescriptions as of 03/28/2025 - atorvastatin (LIPITOR) 80 mg tablet Take 1 tablet by mouth daily at bedtime. For cholesterol. - clopidogrel (PLAVIX) 75 mg tablet Take 1 tablet by mouth once daily. - escitalopram oxalate (LEXAPRO) 10 mg tablet Take 1 tablet by mouth once daily. - finasteride (PROSCAR) 5 mg tablet Take 1 tablet by mouth once daily. - lisinopril (ZESTRIL) 10 mg tablet Take 1 tablet by mouth once daily. - metoprolol succinate ER (TOPROL XL) 25 mg 24 hr tablet Take 1 tablet by mouth once daily. - memantine (NAMENDA) 10 mg tablet Take 1 tablet by mouth once daily. - loratadine 5 mg chewable tablet Take 1 tablet by mouth once daily. - iv contrast (will be provided with radiology test) CTA ABD/PEL - No IV access, insert saline lock prior to the sedation, infusion, injection for imaging exam. Discontinue saline lock post exam. If Pt. has a central line or IVAD, may access for administration according to line specific nursing protocol. Once exam is complete flush line and de-access according to line specific nursing protocol in the CT contrast administration guidelines link. - warfarin (COUMADIN) 5 mg tablet 7.5 mg on Monday, 5 mg all other days or as directed - nitroglycerin sublingual (NITROQUICK) 0.4 mg SL tablet Dissolve 1 tablet under the tongue as needed. for chest pain,every 5 min x3 - blood sugar diagnostic (ONETOUCH ULTRA TEST) test strip Test blood sugar(s) one times daily. Dx: 250.00. Insulin: No - Lancets (ONE TOUCH DELICA) [facility] Test blood sugar(s) one time daily. Dx: 250.00. Insulin: No Problem List As Of Date 03/28/2025 Noted Resolved Hyperlipidemia, mixed [E78.2] Essential hypertension [I10] Peripheral arterial disease (HCC) [I73.9] Other symptoms involving cardiovascular system * 07/20/2016 ACTINIC KERATOSIS [L57.0] 10/12/2005 IMPACTED CERUMEN [H61.20] 10/12/2005 COPD (chronic obstructive pulmonary disease) (H* 01/29/2020 Obesity, unspecified [E66.9] 07/12/2024 Dysmetabolic Syndrome X [E88.810] 06/24/2005 11/27/2009 OTHER ABNORMAL GLUCOSE [R73.09] 10/12/2005 10/02/2006 PAIN IN LIMB [M79.609] 02/15/2008 04/22/2009 Type 2 diabetes mellitus with stage 3 chronic k*11/27/2009 Pain in joint, shoulder region [M25.519] 12/07/2009 01/29/2020 SK (seborrheic keratosis) [L82.1] 01/26/2011 01/29/2020 AK (actinic keratosis) [L57.0] 01/26/2011 01/29/2020 Skin tags 01/26/2011 03/29/2011 Cutaneous skin tags [L91.8] 03/29/2011 05/24/2018 Occlusion and stenosis of unspecified carotid a*10/25/2013 03/26/2024 Frequency [MNF7826] 02/11/2016 03/26/2024 BPH (benign prostatic hypertrophy) with urinary*02/11/2016 Adhesive capsulitis of right shoulder [M75.01] 05/15/2018 Aortic stenosis [I35.0] 05/24/2018 CKD (chronic kidney disease) stage 3, GFR 30-59*05/24/2018 03/26/2024 Lung nodule [R91.1] 06/07/2018 Ectatic thoracic aorta (HCC) [I77.810] 06/07/2018 Paroxysmal atrial fibrillation (HCC) [I48.0] 03/05/2019 Inflamed seborrheic keratosis [L82.0] 03/14/2019 08/14/2023 Neoplasm of uncertain behavior of skin [D48.5] 03/14/2019 08/14/2023 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4] 04/08/2024 Asymptomatic gallstones [K80.20] 05/03/2024 Bilateral carotid artery stenosis [I65.23] 08/06/2024 Encounter Status:Closed by Niels RODRIGES on 03/28/25 [facility] 03-24-2025 CNPN Telephone (PHAMTE) -------- CAL MITCHELL ([id number]) 1945 M Date Time Provider Department 03/24/25 ALEJANDRO MOLINA During your visit today, we recorded the following information about you: Alejandro Molina RPh 03/24/2025 10:57 AM Signed [facility] Anticoagulation [facility] Anticoagulation Episode Summary Anticoagulation Care Providers Provider Role Specialty Phone number Guanakito Reno MD [facility] Medicine [phone] Cal Mitchell is a 79 year old year old male patient being evaluated today for a Telemanagement visit. Patient is currently on the following anticoagulant(s) Warfarin. Labs PT INR (no units) Date Value 09/28/2022 1.9 (self reporting) 01/24/2022 2.1 biotel 10/26/2021 2.1 (Biotel) INR (POCT) (no units) Date Value 07/23/2024 1.4 INR Home CoaguChek (no units) Date Value 03/23/2025 2.5 02/19/2025 1.8 01/30/2025 4.3 Estimated Creatinine Clearance: 31.7 mL/min (A) (based on SCr of 2.34 mg/dL (H)). 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: Anticoagulation Episode Summary Current INR goal: 2.0-3.0 Assessment: INR result of 2.5 is therapeutic Plan: Current Warfarin Dosing As of 03/24/2025 Full warfarin instructions: 5 mg every day Left voice message Advised patient to continue current weekly dose as noted above Next INR check due on 04/07/2025 Patient instructed to call [facility] at [phone] with any questions or concerns. Alejandro Molina [facility] Clinical Pharmacist, Pharmacy Anticoagulation Clinic Pharmacy Anticoagulation Clinic Pager: [phone] Alejandro Molina RP 04/07/2025 3:31 PM Signed Patient was due to test INR today. Will continue to monitor for results. Follow up in one week if no results received. Patient's INR Goal range is - 2.0-3.0 PT INR (no units) Date Value 09/28/2022 1.9 (self reporting) 01/24/2022 2.1 biotel 10/26/2021 2.1 (Biotel) INR (POCT) (no units) Date Value 07/23/2024 1.4 INR Home CoaguChek (no units) Date Value 03/23/2025 2.5 02/19/2025 1.8 01/30/2025 4.3 Patient is in titration phase - No Patient has dosing provided until next INR - Yes Patient is on an injectable anticoagulant - No Twin Cole RPh 04/14/2025 11:38 AM Signed Cal Mitchell was called and reminded to test INR today or as soon as possible. Twin Cole RPh Allergies As of Date: 03/24/2025 (No Known Allergies) Date Reviewed: 03/05/2025 Reviewed by: Jack Holcomb RN - Fully Assessed Reason for Visit: Anticoagulation Telephone Fu [148] Cmt: Home INR Result Prescriptions as of 04/14/2025 - warfarin (COUMADIN) 5 mg tablet Take as directed, up to 2 tablets daily. - warfarin (COUMADIN) 5 mg tablet Take as directed up to 2 tablets daily. - atorvastatin (LIPITOR) 80 mg tablet Take 1 tablet by mouth daily at bedtime. For cholesterol. - clopidogrel (PLAVIX) 75 mg tablet Take 1 tablet by mouth once daily. - escitalopram oxalate (LEXAPRO) 10 mg tablet Take 1 tablet by mouth once daily. - finasteride (PROSCAR) 5 mg tablet Take 1 tablet by mouth once daily. - lisinopril (ZESTRIL) 10 mg tablet Take 1 tablet by mouth once daily. - metoprolol succinate ER (TOPROL XL) 25 mg 24 hr tablet Take 1 tablet by mouth once daily. - memantine (NAMENDA) 10 mg tablet Take 1 tablet by mouth once daily. - loratadine 5 mg chewable tablet Take 1 tablet by mouth once daily. - iv contrast (will be provided with radiology test) CTA ABD/PEL - No IV access, insert saline lock prior to the sedation, infusion, injection for imaging exam. Discontinue saline lock post exam. If Pt. has a central line or IVAD, may access for administration according to line specific nursing protocol. Once exam is complete flush line and de-access according to line specific nursing protocol in the CT contrast administration guidelines link. - nitroglycerin sublingual (NITROQUICK) 0.4 mg SL tablet Dissolve 1 tablet under the tongue as needed. for chest pain,every 5 min x3 - blood sugar diagnostic (ONETOUCH ULTRA TEST) test strip Test blood sugar(s) one times daily. Dx: 250.00. Insulin: No - Lancets (ONE TOUCH DELICA) [facility] lancets Test blood sugar(s) one time daily. Dx: 250.00. Insulin: No Problem List As Of Date 03/24/2025 Noted Resolved Hyperlipidemia, mixed [E78.2] Essential hypertension [I10] Peripheral arterial disease (HCC) [I73.9] Other symptoms involving cardiovascular system * 07/20/2016 ACTINIC KERATOSIS [L57.0] 10/12/2005 IMPACTED CERUMEN [H61.20] 10/12/2005 COPD (chronic obstructive pulmonary disease) (H* 01/29/2020 Obesity, unspecified [E66.9] 07/12/2024 Dysmetabolic Syndrome X [E88.810] 06/24/2005 11/27/2009 OTHER ABNORMAL GLUCOSE [R73.09] 10/12/2005 10/02/2006 PAIN IN LIMB [M79.609] 02/15/2008 04/22/2009 Type 2 diabetes mellitu (more content not included)... Normal [facility] Inital Evaluation (1) - PTon 03-24-2025 Inital Evaluation (1) - PT [facility] Physical Therapy [facility] [address] [place] [address] / REHABILITATION SERVICES INITIAL EVALUATION MR#: [id number] Acct: [id number] Name: CAL MITCHELL Rep #: [id number] : 1945 79 From: Rosa Gates DPT Referring Dr.: Dr. Josafat García MD Status: R [facility] Insurance: [facility] [id number] SELF PAY INSURANCE Patient's Visit Information Visit Information Visit Information: CAL MITCHELL is a 79 year old M referred to Physical Therapy by Dr. Josafat García MD with a diagnosis of Fx of Upper End of Right Humerus. Date of Evaluation: 03/24/25 Physical Therapist: Rosa Gates DPT Visit Plan Frequency: 2x /Week Duration: 4 Weeks Plan: GENTLE ROM Weeks 2-6 and then strengthen at week 7 (from 03/07/2025)- GENTLE! Fracture is aligned but healing HEP Given IE: finger dexterity, Elbow Flexion/Extn, Pendulums and table walk aways Subjective Subjective: Patient reports that he was using a rollator and fell about 2 weeks ago. They went to the ER after he was not able to use his right arm. Saw PCP who then got him to see Dr. García. He did not recommend use of a sling and let it hang and come to PT after 2 weeks. He is right hand dominate. He reports pain in the anterior shoulder. Worst: 10/10 Agg: movement. Eases: not using it. He not takes Tylenol every 4-6 hours. He reports the pain is sharp and shooting. No N/T in the fingers. No radiating pain. Sleep: twin bed and lift chair and he has migrated to the lift chair- once he is alseep it does not wake him. Lives with his daughter and her . They are mostly there to help- they do the cooking and cleaning. Daughter helps with shower but is more hands on since the fall. He needs help with dressing now due to the right arm now working as well. He uses a cane around the house and the 4 wheeled walker he has not used since the day he fell- they are using a wheelchair if they go out. He lives in a ranch style home with a ramp to enter. There has been many falls but this is the first time he has sustained an injury. He had functional use of the shoulder prior to the fall. PMHx/Meds: no changes since ortho. Objective Objective: Posture: forward head, rounded shoulders- can correct but does not maintain Gait: guarded- does not ambulate distances Palpation: tender along upper trap and bicipital groove Observation: bruising along the bicep and down into the forearm Sensation: WNL to gross touch ROM: finger dexterity: WNL, Wrist: WNL- reports discomfort with sup/pro, Elbow: full flexion and extension but reports discomfort at end range flexion and tightness at end range extn, Shoulder: Active: Flexion: 30 degrees, Abd: 40 degrees, IR: to belly, ER: neutral. AAROM: Flexion with table walk away: 50 degrees. No PROM due to guarding. Strength: Scap: poor, mica patcher: fair, no other motions tested due to restrictions from MD. Balance/Special Test Scores Quick DASH Score: 84.0900 Goals Goal 1:: Patient will be I with HEP and progression Goal Time Frame: 4-6 Weeks Goal 2:: Patient will demo 120 degrees of active flexion Goal Time Frame: 4-6 Weeks Goal 3:: Patient will report ability to perform ADL's indep Goal Time Frame: 4-6 Weeks Goal 4:: Patient will report no pain for 1 week with sleep Goal Time Frame: 4-6 Weeks Goal 5:: Patient will report 80% improvement Goal Time Frame: 4-6 Weeks Rehabilitation Potential Physical Therapy Diagnosis: Patient presents with hypomobility- he has decreased ROM, scapular and UE strength/stabilization and muscular endurance s/p right humeral fracture leading to inability to perform ADL's. Rehabilitation Potential: Fair Anticipated Interventions Patient/Client Instruction: Educate patient on: Benefits of Fitness Program Therapeutic Exercise to Include: Strength training, Endurance training, Agility training, Body mechanics, Postural training, Flexibilty training, Neuromotor development, Dynamic Lumbar Stabilization and Scapular Strength/Stabilization Manual Therapy Techniques to Include: Passive ROM For the Purpose of:: To improve muscle performance and motor function TENS: Yes Cryotherapy (ice pack, ice massage): Yes Thermo therapy (hot pack): Yes Ultrasound (thermal/non thermal): No Text: Thank you for the opportunity to evaluate your patient. For Medicare and Medicare HMO plans, please review the plan of care and approve it. It will need to be FAXED BACK to us at [phone] for Medicare purposes. For Medicare only, by signing this I certify the plan of care. Please let me know if there are questions or concerns regarding this plan of care. Physician Signature: Date: ____ 03/24/25 1256 CC: Dr. Josafat García MD; Dr. Guanakito Reno MD E (more content not included)... Normal [facility] Orthopedic Visit Reporton Orthopedic Visit Report [facility] [address] [place] [address] [address] [place] [address] OFFICE VISIT Date of Service: 03/07/25 MR#: [id number] Acct: [id number] Name: CAL MITCHELL Rep #: [id number] : 1945 Provider: Dr. Josafat murcia MD Age/Sex: 79/M Location: [facility] Status: Signed Intake Vital Signs 03/06/25 16:19 03/07/25 12:57 Height 5 ft 10 in 5 ft 10 in Weight: 250 lb BMI 35.9 Intake Visit Reasons: RIGHT HUMERUS Chief Complaint: Right Humertus Accompanied by: Son-In-Law Is patient in pain?: Yes Pain scale (1-10): 8 Allergies Environmental Allergies: Uncoded (seasonal) Allergy (Severe, Verified 03/07/25 13:05) Hives Medications ???Medication ???Instructions ???Recorded ???Confirmed ???Type metoprolol succinate 50 mg 50 mg PO DAILY 04/10/14 03/07/25 H istory tablet,extended release 24 hr clopidogrel 75 mg tablet 75 mg PO DAILY 02/04/19 03/07/25 H istory finasteride 5 mg tablet 5 mg PO DAILY 02/04/19 03/07/25 Hi story glimepiride 2 mg tablet 2 mg PO DAILY 02/04/19 03/07/25 Hi story pioglitazone 30 mg tablet 30 mg PO DAILY 02/04/19 03/07/25 H istory acetaminophen 500 mg tablet 500 mg PO Q8H PRN 08/21/19 5 History memantine 10 mg tablet (Namenda) 10 mg PO DAILY 08/21/19 03/07/25 H istory metformin 500 mg tablet 500 mg PO BID 08/21/19 03/07/25 Hi story nitroglycerin 0.4 mg sublingual 0.4 mg sublingual Q5-15M 08/21/19 03/07/25 History tablet warfarin 5 mg tablet 5 mg PO .COMPLEX 08/27/19 03/07/25 History atorvastatin 80 mg tablet 80 mg PO QHS 03/12/20 03/07/25 His tory escitalopram oxalate 10 mg tablet 10 mg PO DAILY 09/28/20 03/07/25 History (Lexapro) hydrocodone-acetaminophe n 5-325mg 1 tab PO 4X/DAY PRN 03/07/2502/14 History 5mg-325mg lisinopril 10 mg tablet 10 mg PO QDAY 03/07/25 03/07/25 Hi story loratadine 5 mg/5 mL oral solution 5 mg PO ONCE 03/07/25 03/07/25 H istory (Allergy Relief (loratadine)) Have you fallen in the past year?: Yes PFSH Medical History (Updated 03/07/25 @ 13:23 by Josafat García MD) Closed fracture of right proximal humerus Hypertension Nonrheumatic aortic (valve) stenosis First degree AV block Abnormal EKG Paroxysmal atrial fibrillation Lung nodule Chronic kidney disease, stage 3 BPH (benign prostatic hyperplasia) Obesity Diabetes mellitus, type II COPD (chronic obstructive pulmonary disease) Essential hypertension Ectatic thoracic aorta Hyperlipidemia Carotid artery disease CVA (cerebral vascular accident) (01/28/19) Surgical History History of right-sided carotid endarterectomy (04/17/14) Family History Mother Congestive heart failure Grandfather CVA (cerebral vascular accident) Social History Smoking Status: Former smoker quit date: 12/05/85 pack-years: 20 HPI RIGHT HUMERUS Details: This documentation accurately reflects the service provided and the decisions made by me, Dr. Josafat García MD 03/07/25 0914. Part of today???s visit was documented by [ ], acting as scribe. CAL MITCHELL is a 79 year old M here today for R proximal humerus fracture. Patient fell 2 days ago. He lives at home. He is here today with his son and [id number]. Usually ambulates with a walker or a cane. Had a fall. Was mainly complaining about pain to the upper extremity was seen in a peripheral hospital referred here given a sling they found approximately wrist fracture on the right side. The patient does not speak very much but he converses overall well he is [id number] fairly stoic. Supplemental Info Proximal humerus fracture 3 parts none to minimally displaced. Radiologist impression this is from 03/06/2025 these are on the PACS system as well as scanned into. No dislocation and acute impacted nondisplaced fracture involving the proximal right humerus centered at the surgical neck with involvement of the greater humeral tuberosity and mild separation. I independently reviewed the imaging. Concur with radiologist report. Coding Level of Care Code Off vis,new,level 4 Diagnoses Closed fracture of right proximal humerus S42.201A Assessment and Plan Assessment and Plan (1) Closed fracture of right proximal humerus: Status: Acute Plan: 79-year-old man with a right proximal humerus fracture. This appears well aligned. The patient is on warfarin. He is overall low demand uses a walker. Given the good alignment and functional demands the patient I would suggest nonoperative treatment here although the other options would be open reduction internal fixation versus a r (more content not included)... [facility] -------- CAL MITCHELL ([id number]) 1945 M Date Time Provider Department 03/06/25 3:20 PM [facility] During your visit today, we recorded the following information about you: Pulse Blood pressure 68/minute 124/58 Carolina Landeros APRN.[facility] 03/06/2025 4:30 PM Signed This is a 79 year old male who presents today with: No chief complaint on file. HISTORY OF PRESENT ILLNESS: Cal Mitchell is a 79 year old male. No chief complaint on file. Cal is an 79-year-old male with a history of diabetes and CKD stage 4, presenting for follow-up after a recent fall resulting in a right arm fracture. Right Arm Fracture: - Sustained a right arm fracture after falling off a rollator in the driveway yesterday. - Described as "slightly displaced." - Pain severity rated as 5/10 at rest and 9-10/10 with movement. - Currently taking Jordan for pain management. - Denies pain elsewhere from the fall. Diabetes: - Recent hemoglobin A1c was 6.7%. Chronic Kidney Disease Stage 4: - Recent labs show alkaline phosphatase slightly elevated. PAST MEDICAL HISTORY: PAST MEDICAL HISTORY Diagnosis Date Actinic keratosis 10/2004 Aortic valve stenosis BPH (benign prostatic hyperplasia) Carotid artery stenosis Chronic airway obstruction, not elsewhere classified 10/2004 Diabetes (HCC) Diverticulosis of colon (without mention of hemorrhage) Ectatic thoracic aorta 06/07/2018 06/07/18 Chest CTA: There is atherosclerotic calcification of the thoracic aorta with mild fusiform ectasia of the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 any medication changes, bleeding/bruising concerns, recent changes in vitamin k consumption, if any procedures are coming up, if they have been ill or in the hospital, and if they have missed any doses of warfarin. Jimmy Carrizales [facility] Clinical Pharmacist, Pharmacy Anticoagulation Clinic Pharmacy Anticoagulation Clinic Pager: [phone]. Twin Cole [facility] 03/06/2025 12:38 PM Signed Patient was due to test INR today. Will continue to monitor for results. Follow up in one week if no results received. Patient's INR Goal range is - 2.0-3.0 PT INR (no units) Date Value 09/28/2022 1.9 (self reporting) 01/24/2022 2.1 biotel 10/26/2021 2.1 (Biotel) INR (POCT) (no units) Date Value 07/23/2024 1.4 INR Home CoaguChek (no units) Date Value 02/19/2025 1.8 01/30/2025 4.3 01/07/2025 1.8 Patient is in titration phase - No Patient has dosing provided until next INR - Yes Patient is on an injectable anticoagulant - No Twin Cole [facility] Jimmy Carrizales [facility] 03/13/2025 7:40 AM Signed Cal Mitchell was sent Janalakshmi message and reminded to test INR today or as soon as possible. Jimmy Carrizales [facility] Ulysses AlejandroStuart 03/20/2025 3:45 PM Signed No INR has been received or is in process at this time, will add to discharge list and start the discharge process at this time. Alejandro Molina bobbi Sanchez (Spray Drier Operator Helper)Ashley 03/24/2025 10:52 AM Signed No return call from patient. Letter sent. FINAL ATTEMPT letter sent at this time. If no response from patient within 3 weeks of letter being sent, patient will be discharged from PAC at that time. Will also route to referring MD as FYI and to see if office can assist in reaching patient. Ashley Sanchez CPhT (Home And School Visitor) Pharmacy Anticoagulation Clinic Guanakito Reno MD 03/24/2025 11:17 AM Signed Can we try and call family and see what is up. Geovanna Hinds MA 03/24/2025 11:43 AM Signed Left message for daughter, January to call back and speak with triage nurse. Geovanna Hinds MA March 24, 2025 11:43 AM Allergies As of Date: 02/20/2025 (No Known Allergies) Date Reviewed: 01/21/2025 Reviewed by: Geovanna Hinds MA - Fully Assessed Reason for Visit: Anticoagulation Telephone Fu [148] Cmt: Home INR Primary Visit Diagnosis:[facility] (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 [Z79.01] Other Visit Diagnosis:Paroxysmal atrial fibrillation (HCC) [I48.0] Prescriptions as of 03/24/2025 - atorvastatin (LIPITOR) 80 mg tablet Take 1 tablet by mouth daily at bedtime. For cholesterol. - clopidogrel (PLAVIX) 75 mg tablet Take 1 tablet by mouth once daily. - escitalopram oxalate (LEXAPRO) 10 mg tablet Take 1 tablet by mouth once daily. - finasteride (PROSCAR) 5 mg table (more content not included)... Normal [facility] Molly [facility]-31-2025 [facility] -------- CAL MITCHELL ([id number]) 1945 M Date Time Provider Department 01/31/25 KAMRAN AYON During your visit today, we recorded the following information about you: Kamran Ayon [facility] 01/31/2025 12:55 PM Signed [facility] Anticoagulation Episode Summary Anticoagulation Care Providers Provider Role Specialty Phone number Guanakito Reno MD [facility] Family Medicine [phone] Cal Mitchell is a 79 year old year old male patient being evaluated today for a Telemanagement visit. Patient is currently on the following anticoagulant(s) Warfarin. Labs PT INR (no units) Date Value 09/28/2022 1.9 (self reporting) 01/24/2022 2.1 biotel 10/26/2021 2.1 (Biotel) INR (POCT) (no units) Date Value 07/23/2024 1.4 INR Home CoaguChek (no units) Date Value 01/30/2025 4.3 01/07/2025 1.8 12/27/2024 1.5 Hemoglobin (g/dL) Date Value 01/21/2025 12.5 10/06/2020 12.3 Hematocrit (%) Date Value 01/21/2025 41.2 10/06/2020 39.0 Platelet Count (k/uL) Date Value 01/21/2025 198 10/06/2020 189 Creatinine (mg/dL) Date Value 01/21/2025 2.34 07/12/2024 2.40 04/19/2024 2.35 10/06/2020 1.60 07/18/2019 1.46 03/18/2019 1.51 Bilirubin, Total (mg/dL) Date Value 01/21/2025 0.6 10/06/2020 0.4 ALT (U/L) Date Value 01/21/2025 19 10/06/2020 16 AST (U/L) Date Value 01/21/2025 23 10/06/2020 17 Estimated Creatinine Clearance: 31.7 mL/min (A) (based on SCr of 2.34 mg/dL (H)). 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: [facility] (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 Paroxysmal atrial fibrillation (hcc) Anticoagulation Episode Summary Current INR goal: 2.0-3.0 Assessment: INR result of 4.3 is SUPRAtherapeutic due to: unknown cause - did not speak to patient Plan: Current Warfarin Dosing As of 01/31/2025 Full warfarin instructions: 01/31: Hold; Otherwise 5 mg every day Left voice message and sent MYC message Advised patient to hold 1 dose then continue current regimen Next home INR check scheduled on 02/14/2025 Patient advised to call the PAC with any medication changes, bleeding/bruising concerns, recent changes in vitamin k consumption, if any procedures are coming up, if they have been ill or in the hospital, and if they have missed any doses of warfarin. Kamran Ayon RPh Clinical Pharmacist, Pharmacy Anticoagulation Clinic Pharmacy Anticoagulation Clinic Pager: [phone]. Kamran Ayon RPh 02/14/2025 9:53 AM Signed Patient was due to test INR today. Will continue to monitor for results. Follow up in one week if no results received. Patient's INR Goal range is - 2.0-3.0 PT INR (no units) Date Value 09/28/2022 1.9 (self reporting) 01/24/2022 2.1 biotel 10/26/2021 2.1 (Biotel) INR (POCT) (no units) Date Value 07/23/2024 1.4 INR Home CoaguChek (no units) Date Value 01/30/2025 4.3 01/07/2025 1.8 12/27/2024 1.5 Patient is in titration phase - No Patient has dosing provided until next INR - Yes Patient is on an injectable anticoagulant - No Kamran Ayon RPh Allergies As of Date: 01/31/2025 (No Known Allergies) Date Reviewed: 01/21/2025 Reviewed by: Geovanna Hinds MA - Fully Assessed Reason for Visit: Anticoagulation Telephone Fu [148] Cmt: INR Home Test Result 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 - escitalopram oxalate (LEXAPRO) 10 mg tablet Take 1 tablet by mouth once daily. - finasteride (PROSCAR) 5 mg tablet Take 1 tablet by mouth once daily. - lisinopril (ZESTRIL) 10 mg tablet Take 1 tablet by mouth once daily. - metoprolol succinate ER (TOPROL XL) 25 mg 24 hr tablet Take 1 tablet by mouth once daily. - memantine (NAMENDA) 10 mg tablet Take 1 tablet by mouth once daily. - loratadine 5 mg chewable tablet Take 1 tablet by mouth once daily. - carboxymethylcellulose sodium (LUBRICANT DRY EYE RELIEF) 1 % dlgl Use 1-2 drops in both eyes as needed. - atorvastatin (LIPITOR) 80 mg tablet Take 1 tablet by mouth daily at bedtime. For cholesterol. - iv contrast (will be provided with radiology test) CTA ABD/PEL - No IV access, insert saline lock prior to the sedation, infusion, injection for imaging exam. Discontinue saline lock post exam. If Pt. has a central line or IVAD, may access for administration according to line specific nursing protocol. Once exam is complete flush line and de-access according to line specific nursing protocol in the CT contrast administration guidelines link. - warfarin (COUMADIN) 5 mg tablet 7.5 mg on Monday, 5 mg all other days or as directed - nitroglycerin sublingual (NITROQUICK) 0.4 (more content not included)... Normal [facility] CBC W Auto Differential pane l (Bld)on 01-21-2025 Basophils (Bld) [#/Vol] 0.07 10*3/uL Normal <0.11 [facility] 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: Order Comment: Speci men Type: BLOOD SPECIMENOrdering Facility: [facility] Address: [address] [place] [address] Performed By: #### 5 7021-8 ####[facility] LABCLIA [id number] [facility] [id number] [place] [address] [place] Basophils/100 WBC (Bld) 0.9 % Normal [facility] 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: Order Comment: Speci men Type: BLOOD SPECIMENOrdering Facility: [facility] Address: [address] [place] [address] Performed By: #### 5 7021-8 ####[facility] LABCLIA [id number] [address], [place] [address] [place] Differential cell count method Nom (Bld) Auto Normal [facility] 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: Order Comment: Speci men Type: BLOOD SPECIMENOrdering Facility: [facility] Address: [address] [place] [address] Performed By: #### 5 7021-8 ####[facility] LABCLIA [id number] [place] [address] [place] Eosinophils (Bld) [#/Vol] 0.25 10*3/uL Normal <0.46 [facility] 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: Order Comment: Speci men Type: BLOOD SPECIMENOrdering Facility: [facility] Address: [address] [place] [address] Performed By: #### 5 7021-8 ####[facility] LABCLIA [id number] [address], [place] [address] [place] Eosinophils/100 WBC (Bld) 3.3 % Normal [facility] 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: Order Comment: Speci men Type: BLOOD SPECIMENOrdering Facility: [facility] Address: [address] [place] [address] Performed By: #### 5 7021-8 ####[facility] LABCLIA [id number] [place] [address] [place] Erythrocyte distribution width (RBC) [Ratio] 14.8 % Normal 11.5-15.0 [facility] 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: Order Comment: Speci men Type: BLOOD SPECIMENOrdering Facility: [facility] Address: [address] [place] [address] Performed By: #### 5 7021-8 ####[facility] LABCLIA [id number] [address], [facility] [place] Hematocrit (Bld) [Volume fraction] 41.2 % Normal 39.0-51.0 [facility] 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: Order Comment: Speci men Type: BLOOD SPECIMENOrdering Facility: [facility] Address: [address] [place] [address] Performed By: #### 5 7021-8 ####[facility] LABCLIA [id number] [place] [address] [place] Hemoglobin (Bld) [Mass/Vol] 12.5 g/dL Low 13.0-17.0 [facility] 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: Order Comment: Speci men Type: BLOOD SPECIMENOrdering Facility: [facility] Address: [address] [place] [address] Performed By: #### 5 7021-8 ####[facility] LABIA [id number] [place] [address] [place] Immature granulocytes (Bld) [#/Vol] 10*3/uL Normal <0.10 [facility] 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: Order Comment: Speci men Type: BLOOD SPECIMENOrdering Facility: [facility] Address: [address] [place] [address] Performed By: #### 5 7021-8 ####[facility] LABIA [id number] [place] [address] [place] Immature granulocytes/100 WBC (Bld) 0.3 % Normal [facility] 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: Order Comment: Speci men Type: BLOOD SPECIMENOrdering Facility: [facility] Address: [address] [place] [address] Performed By: #### 5 7021-8 ####[facility] LABIA [id number] [place] [id number] [place] Lymphocytes (Bld) [#/Vol] 1.28 10*3/uL Normal 1.00-4.00 [facility] 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: Order Comment: Speci men Type: BLOOD SPECIMENOrdering Facility: [facility] Address: [address] [place] [address] Performed By: #### 5 7021-8 ####[facility] LABCLIA [id number] [place] [address] [place] Lymphocytes/100 WBC (Bld) 17.1 % Normal [facility] 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: Order Comment: Speci men Type: BLOOD SPECIMENOrdering Facility: [facility] Address: [address] [place] [address] Performed By: #### 5 7021-8 ####[facility] LABIA [id number] [place] [address] [place] MCH (RBC) [Entitic mass] 29.3 pg Normal 26.0-34.0 [facility] 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: Order Comment: Speci men Type: BLOOD SPECIMENOrdering Facility: [facility] Address: [address] [place] [address] Performed By: #### 5 7021-8 ####[facility] LABIA [id number] [place] [address] [place] MCHC (RBC) [Mass/Vol] 30.3 g/dL Low 30.5-36.0 [facility] 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: Order Comment: Speci men Type: BLOOD SPECIMENOrdering Facility: [facility] Address: [address] [place] [address] Performed By: #### 5 7021-8 ####[facility] LABIA [id number] [place] [address] [place] MCV (RBC) [Entitic vol] 96.7 fL Normal 80.0-100.0 [facility] 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: Order Comment: Speci men Type: BLOOD SPECIMENOrdering Facility: [facility] Address: [address] [place] [address] Performed By: #### 5 7021-8 ####[facility] LABIA [id number] [place] [address] [place] Monocytes (Bld) [#/Vol] 0.61 10*3/uL Normal <0.87 [facility] 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: Order Comment: Speci men Type: BLOOD SPECIMENOrdering Facility: [facility] Address: [address] [place] [address] Performed By: #### 5 7021-8 ####[facility] LABCLIA [id number] [address] [address] [place] Monocytes/100 WBC (Bld) 8.2 % Normal [facility] 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: Order Comment: Speci men Type: BLOOD SPECIMENOrdering Facility: [facility] Address: [address] [place] [address] Performed By: #### 5 7021-8 ####[facility] LABCLIA [id number] [place] [address] [place] Neutrophils (Bld) [#/Vol] 5.25 10*3/uL Normal 1.45-7.50 [facility] 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: Order Comment: Speci men Type: BLOOD SPECIMENOrdering Facility: [facility] Address: [address] [place] [address] Performed By: #### 5 7021-8 ####[facility] LABCLIA [id number] [place] [id number] [place] Neutrophils/100 WBC (Bld) 70.2 % Normal [facility] 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: Order Comment: Speci men Type: BLOOD SPECIMENOrdering Facility: [facility] Address: [address] [place] [address] Performed By: #### 5 7021-8 ####[facility] LABCLIA [id number] [place] [id number] [place] Nucleated RBC (Bld) [#/Vol] 10*3/uL Normal <0.01 [facility] 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: Order Comment: Speci men Type: BLOOD SPECIMENOrdering Facility: [facility] Address: [address] [place] [address] Performed By: #### 5 7021-8 ####[facility] LABCLIA [id number] [address], [place] [address] [place] Nucleated RBC/100 WBC (Bld) [Ratio] 0.0 /100 WBC Normal [facility] 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: Order Comment: Speci men Type: BLOOD SPECIMENOrdering Facility: [facility] Address: [address] [place] [address] Performed By: #### 5 7021-8 ####[facility] LABIA [id number] [address], [place] [address] [place] Platelet mean volume (Bld) [Entitic vol] 10.3 fL Normal 9.0-12.7 [facility] 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: Order Comment: Speci men Type: BLOOD SPECIMENOrdering Facility: [facility] Address: [address] [place] [address] Performed By: #### 5 7021-8 ####[facility] LABIA [id number] [place] [address] [place] Platelets (Bld) [#/Vol] 198 10*3/uL Normal 150-400 [facility] 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: Order Comment: Speci men Type: BLOOD SPECIMENOrdering Facility: [facility] Address: [address] [place] [address] Performed By: #### 5 7021-8 ####[facility] LABIA [id number] [place] [address] [place] RBC (Bld) [#/Vol] 4.26 10*6/uL Normal 4.20-6.00 [facility] 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: Order Comment: Speci men Type: BLOOD SPECIMENOrdering Facility: [facility] Address: [address] [place] [address] Performed By: #### 5 7021-8 ####[facility] LABIA [id number] [place] [id number] [place] WBC (Bld) [#/Vol] 7.48 10*3/uL Normal 3.70-11.00 [facility] 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: Order Comment: Speci men Type: BLOOD SPECIMENOrdering Facility: [facility] Address: [address] [place] [address] Performed By: #### 5 7021-8 ####[facility] LABCLIA [id number] MARYLuba MARSHALL [address] [place] CNOVon 01-21-2025 CNOV Office Visit (FAMPWS ) -------- CAL MITCHELL ([id number]) 1945 M Date Time Provider Department 01/21/25 3:40 PM [facility] During your visit today, we recorded the following information about you: Temperature Pulse Blood pressure Weight 97.6 degrees 59/minute 122/60 117 kg Carolina Landeros APRN.[facility] 01/21/2025 4:11 PM Signed This is a 79 year old male who presents today with: Patient presents with: 6 Month Exam HISTORY OF PRESENT ILLNESS: Cal Mitchell is a 79 year old male. Patient presents with: 6 Month Exam Eyes are watery and itch for the past couple weeks. DM: Reports overall feeling well. Medication side effects: No medication. Home sugar checks: No Hypoglycemic spells: No. Watching diet: No. Unexpected weight loss: No. Polyuria, polydipsia: No. Vision Changes: No. Foot lesions or numbness or pain: No. HTN: Patient is compliant with meds Not taking lisinopril Monitors bp at home: Yes. [place] checks it, ok there Denies side effects: Maybe. Gets lightheaded sometimes getting out of car. Chest pain: No. Dyspnea: No. With exertion Edema: No. Palpitations: No. Syncope: No. Headache: No. Dizziness: Some. Dementia- daughter helping with history taking PAST MEDICAL HISTORY: PAST MEDICAL HISTORY Diagnosis Date Actinic keratosis 10/2004 Aortic valve stenosis BPH (benign prostatic hyperplasia) Carotid artery stenosis Chronic airway obstruction, not elsewhere classified 10/2004 Diabetes (HCC) Diverticulosis of colon (without mention of hemorrhage) Ectatic thoracic aorta 06/07/2018 06/07/18 Chest CTA: There is atherosclerotic calcification of the thoracic aorta with mild fusiform ectasia of the descending component measuring 3.2 x 3.1 cm Essential hypertension Hyperlipidemia Impacted cerumen 10/2004 Obesity, unspecified 11/2003 Other and unspecified hyperlipidemia 10/2003 Other symptoms involving cardiovascular system 10/2004 Peripheral vascular disease, unspecified 10/2004 R carotid Unspecified essential hypertension 04/2004 PAST SURGICAL HISTORY Procedure Laterality Date ARTL CATHJ/CANNULJ MNTR/TRANSFUSION SPX PRQ 04-17-14 COLONOSCOPY FLX DX W/COLLJ SPEC WHEN PFRMD 40 years ago Colonoscopy COLONOSCOPY FLX DX W/COLLJ SPEC WHEN PFRMD 03/02/11 DSTRJ LESION PENIS SIMPLE CHEMICAL 10/20 PAST SURGICAL HISTORY OF Skin tag removals - bilateral axillary REMOVAL IMPACTED CERUMEN INSTRUMENTATION UNILAT 10/20 TEAEC W/PATCH GRF CAROTID VERTB SUBCLAV NECK INC 04-17-14 RIGHT ALLERGIES Patient has no known allergies. MEDICATIONS Current Outpatient Medications Medication Sig lisinopril (ZESTRIL) 20 mg tablet Take 1 tablet by mouth once daily. atorvastatin (LIPITOR) 80 mg tablet Take 1 tablet by mouth daily at bedtime. For cholesterol. clopidogrel (PLAVIX) 75 mg tablet Take 1 tablet by mouth once daily. metoprolol succinate ER (TOPROL XL) 25 mg 24 hr tablet Take 1 tablet by mouth once daily. escitalopram oxalate (LEXAPRO) 10 mg tablet Take 1 tablet by mouth once daily. warfarin (COUMADIN) 5 mg tablet 7.5 mg on Monday, 5 mg all other days or as directed (Patient taking differently: 5 mg everyday or as directed) memantine (NAMENDA) 10 mg tablet Take 1 tablet by mouth once daily. nitroglycerin sublingual (NITROQUICK) 0.4 mg SL tablet Dissolve 1 tablet under the tongue as needed. for chest pain,every 5 min x3 blood sugar diagnostic (Set.fm ULTRA TEST) test strip Test blood sugar(s) one times daily. Dx: 250.00. Insulin: No Lancets (ONE TOUCH DELICA) [facility] lancets Test blood sugar(s) one time daily. Dx: 250.00. Insulin: No lisinopril (ZESTRIL) 20 mg tablet Take 1 tablet by mouth once daily. atorvastatin (LIPITOR) 80 mg tablet Take 1 tablet by mouth daily at bedtime. For cholesterol. iv contrast (will be provided with radiology test) CTA ABD/PEL - No IV access, insert saline lock prior to the sedation, infusion, injection for imaging exam. Discontinue saline lock post exam. If Pt. has a central line or IVAD, may access for administration according to line specific nursing protocol. Once exam is complete flush line and de-access according to line specific nursing protocol in the CT contrast administration guidelines link. enoxaparin (LOVENOX) 100 mg/mL syrg Inject 1 mL subcutaneously once daily. Inject entire contents of one(1) syringe finasteride (PROSCAR) 5 mg tablet Take 1 tablet by mouth once daily. acetaminophen (TYLENOL) 500 mg tablet Take 500 mg by mouth every 8 hours as needed. (Patient not taking: Reported on 08/06/2024) No current facility-administered medications for this visit. FAMILY HISTORY Problem Relation Age of Onset Heart Mother of CHF Stroke Maternal Grandfather Social History Tobacco Use Smoking status: Former Current packs/day: 0.00 Average packs/day: 2.0 packs/day for 10.0 years (20.0 ttl (more content not included)... Normal [facility] Comprehensive metabolic 2000 panelon 01-21-2025 Albumin [Mass/Vol] 4.1 g/dL Normal 3.9-4.9 [facility] 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: Order Comment: Speci lexii Type: BLOOD SPECIMENOrdering Facility: [facility] Address: [address] [place] [address] Performed By: #### [place], 39434-6, 0822-9, 97774-2 ####[facility] LABCLIA [id number] [place] [address] [place] ALP [Catalytic activity/Vol] 153 U/L High 38-113 [facility] 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: Order Comment: Speci men Type: BLOOD SPECIMENOrdering Facility: [facility] Address: [address] [place] [address] Performed By: #### L IPNF, , 2132-06, ####[facility] LABCLIA [id number] [place] [address] [place] ALT [Catalytic activity/Vol] 19 U/L Normal 10-54 [facility] 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: Order Comment: Speci men Type: BLOOD SPECIMENOrdering Facility: [facility] Address: [address] [place] [address] Performed By: #### L IPNF, , 2132-06, ####[facility] LABCLIA [id number] [place] [address] [place] Anion gap [Moles/Vol] 15 mmol/L Normal 8-15 [facility] 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: Order Comment: Speci men Type: BLOOD SPECIMENOrdering Facility: [facility] Address: [address] [place] [address] Performed By: #### L IPNF, , 2132-06, ####[facility] LABCLIA [id number] [place] [address] [place] AST [Catalytic activity/Vol] 23 U/L Normal 14-40 [facility] 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: Order Comment: Speci men Type: BLOOD SPECIMENOrdering Facility: [facility] Address: [address] [place] [address] Performed By: #### L IPNF, , 2132-06, ####[facility] LABCLIA [id number] [place] [id number] [place] Bilirubin [Mass/Vol] 0.6 mg/dL Normal 0.2-1.3 [facility] 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: Order Comment: Speci men Type: BLOOD SPECIMENOrdering Facility: [facility] Address: [address] [place] [address] Performed By: #### L IPNF, , 2132-06, ####[facility] LABCLIA [id number] [address] [address] [place] Calcium [Mass/Vol] 8.8 mg/dL Normal 8.5-10.2 [facility] 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: Order Comment: Speci men Type: BLOOD SPECIMENOrdering Facility: [facility] Address: [address] [place], [place] [address] Performed By: #### L IPNF, , 2132-06, ####[facility] LABCLIA [id number] [address] [address] [place] Chloride [Moles/Vol] 106 mmol/L Normal 98-107 [facility] 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: Order Comment: Speci men Type: BLOOD SPECIMENOrdering Facility: [facility] Address: [address] [place], [place] [address] Performed By: #### L IPNF, , 2132-06, ####[facility] LABCLIA [id number] [address] [address] [place] CO2 [Moles/Vol] 21 mmol/L Low 22-30 [facility] 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: Order Comment: Speci men Type: BLOOD SPECIMENOrdering Facility: [facility] Address: [address] [place], [place] [address] Performed By: #### L IPNF, , 2132-06, ####[facility] LABCLIA [id number] [address] [address] [place] Creatinine [Mass/Vol] 2.34 mg/dL High 0.73-1.22 [facility] 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: Order Comment: Speci men Type: BLOOD SPECIMENOrdering Facility: [facility] Address: [address] [place] [address] Performed By: #### L IPNF, 18702-8, 2132-06, 33694-1 ####[facility] LABCLIA [id number] [place] [address] [place] Creatinine and Glomerular filtration rate.predicted panel (S/P/Bld) 27 mL/min/1.73m??? Low >=60 [facility] 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: Order Comment: Marcelle shultz Type: BLOOD SPECIMENOrdering Facility: [facility] Address: [address] [place] [address] Result Comment: Lina mated Glomerular Filtration Rate (eGFR) is calculated using the 2020 CKD-EPI creatinine equation. This equation utilizes serum creatinine, sex, and age as parameters. The creatinine assay has traceable calibration to isotope dilution-mass spectrometry. Refer to KDIGO guidelines for clinical interpretation. In patients with unstable renal function, e.g. those with acute kidney injury, the eGFR may not accurately reflect actual GFR. Performed By: #### L IPNF, 45254-8, 2132-06, 45264-2 ####[facility] LABCLIA [id number] [place] [id number] [place] Glucose [Mass/Vol] 122 mg/dL High 74-99 [facility] 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: Order Comment: Marcelle shultz Type: BLOOD SPECIMENOrdering Facility: [facility] Address: [address] [place] [address] Result Comment: The [place] Diabetes Association (ADA) provides guidance for cutoff values for fasting glucose and random glucose. The ADA defines fasting as no caloric intake for at least 8 hours. Fasting plasma glucose results between 100 to 125 mg/dL indicate increased risk for diabetes (prediabetes). Fasting plasma glucose results greater than or equal to 126 mg/dL meet the criteria for diagnosis of diabetes. In the absence of unequivocal hyperglycemia, results should be confirmed by repeat testing. In a patient with classic symptoms of hyperglycemia or hyperglycemic crisis, random plasma glucose results greater than or equal to 200 mg/dL meet the criteria for diagnosis of diabetes. Reference: Standards of Medical Care in Diabetes 2016, [place] Diabetes Association. Diabetes Care. 2016.39(Suppl 1). Performed By: #### L IPNF, , 2132-06, ####[facility] LABCLIA [id number] [address] [address] [place] Potassium [Moles/Vol] 4.3 mmol/L Normal 3.7-5.1 [facility] 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: Order Comment: Speci men Type: BLOOD SPECIMENOrdering Facility: [facility] Address: [address] [place] [address] Performed By: #### L IPNF, , 2132-06, ####[facility] LABCLIA [id number] [place] [id number] [place] Protein [Mass/Vol] 7.2 g/dL Normal 6.3-8.0 [facility] 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: Order Comment: Speci men Type: BLOOD SPECIMENOrdering Facility: [facility] Address: [address] [place] [address] Performed By: #### L IPNF, , 2132-06, ####[facility] LABCLIA [id number] [place] [id number] [place] Sodium [Moles/Vol] 142 mmol/L Normal 136-144 [facility] 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: Order Comment: Speci men Type: BLOOD SPECIMENOrdering Facility: [facility] Address: [address] [place], [place] [address] Performed By: #### L IPNF, , 2132-06, ####[facility] LABCLIA [id number] [address] [address] [place] Urea nitrogen [Mass/Vol] 29 mg/dL High 9-24 [facility] 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: Order Comment: Speci men Type: BLOOD SPECIMENOrdering Facility: [facility] Address: [address] [place], [place] [address] Performed By: #### L IPNF, 72179-8, 2132-9, 35961-5 ####[facility] LABIA [id number] [address] HbA1c (Bld)on 01-21-2025 Average glucose Estimated from glycated hemoglobin (Bld) [Mass/Vol] 146 mg/dL Normal [facility] 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: Order Comment: Marcelle shultz Type: BLOOD SPECIMENOrdering Facility: [facility] Address: [address] [place] [address] Result Comment: eAG: (Estimated average glucose) is a calculated value from HgbA1c and is senior customer service representative of the average blood glucose level in the last 2-3 month period. Performed By: #### 5 5454-3 ####[facility] [id number] [address] STATES OF [facility] HbA1c (Bld) [Mass fraction] 6.7 % High 4.3-5.6 [facility] 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: Order Comment: Marcelle shultz Type: BLOOD SPECIMENOrdering Facility: [facility] Address: [address] [place] [address] Result Comment: [place] Diabetes Association guidelines indicate that patients with HgbA1c in the range 5.7-6.4% are at increased risk for development of diabetes, and intervention by lifestyle modification may be beneficial. HgbA1c greater or equal to 6.5% is considered diagnostic of diabetes. Performed By: #### 5 5454-3 ####[facility] LABIA [id number] [place] [id number] [facility] LIPID PANEL, NONFASTINGon Cholesterol [Mass/Vol] 164 mg/dL Normal <200 [facility] 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: Order Comment: Marcelle shultz Type: BLOOD SPECIMENOrdering Facility: [facility] Address: [address] [place] [address] Result Comment: <200 mg/dL, Desirable 200-239 mg/dL, Borderline high >239 mg/dL, High Performed By: #### L IPNF, , 2132-06, ####[facility] LABCLIA [id number] [place] [id number] [place] HDL CHOLESTEROL, NF 42 mg/dL Normal >39 [facility] 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: Order Comment: Speci men Type: BLOOD SPECIMENOrdering Facility: [facility] Address: [address] [place] [address] Result Comment: 40-5 9 mg/dL, Acceptable >59 mg/dL, High: Negative risk factor for coronary heart disease <40 mg/dL, Low: Positive risk factor for coronary heart disease Performed By: #### L IPNF, , 2132-06, ####[facility] LABCLIA [id number] [address] [place] LDL CHOLESTEROL, NF 96 mg/dL Normal <100 [facility] 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: Order Comment: [facility] Type: BLOOD SPECIMENOrdering Facility: [facility] Address: [address] [place] [address] Result Comment: <100 mg/dL, Optimal 100-129 mg/dL, Near optimal/above optimal 130-159 mg/dL, Borderline high 160-189 mg/dL, High >189 mg/dL, Very high Secondary prevention optimal LDL Cholesterol levels are recommended to be < 70 mg/dL Performed By: #### L IPNF, , 2132-06, ####[facility] LABCLIA [id number] [place] [id number] [facility] [place] LDL/HDL RATIO, NF 2.29 mg/dL Normal <2.54 [facility] 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: Order Comment: Speci men Type: BLOOD SPECIMENOrdering Facility: [facility] Address: [address] [place] [address] Result Comment: Refe rence: 1. National Cholesterol Education Program ATP III Guideline At-A-Glance Quick Desk Reference: National Heart, Lung, and Blood [place]. National Institutes of Health. 2001: NIH Publication No. 01-3305. 2. An International Atherosclerosis Society position paper: global recommendations for the management of dyslipidemia: executive summary, Atherosclerosis. 2014: 232(2):410-413. Performed By: #### L IPNF, , 2132-06, ####[facility] LABCLIA [id number] [address] [address] [place] NON HDL CHOL, NF 122 mg/dL Normal <130 [facility] 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: Order Comment: Speci men Type: BLOOD SPECIMENOrdering Facility: [facility] Address: [address] [place] [address] Result Comment: <130 mg/dL, Optimal 130-159 mg/dL, Near optimal/above optimal 160-189 mg/dL, Borderline high 190-219 mg/dL, High >219 mg/dL, Very high Secondary prevention optimal non HDL Cholesterol levels are recommended to be <100 mg/dL Performed By: #### L IPNF, , 2132-06, ####[facility] LABCLIA [id number] [place] [id number] [place] T CHOL/HDL RATIO NF 3.90 mg/dL Normal <5.10 [facility] 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: Order Comment: Marcelle shultz Type: BLOOD SPECIMENOrdering Facility: [facility] Address: [address] [place] [address] Performed By: #### L IPNF, , 2132-06, ####[facility] LABCLIA [id number] [address] [address] [place] TRIGLYCERIDES, NF 129 mg/dL Normal <150 [facility] 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: Order Comment: Marcelle shultz Type: BLOOD SPECIMENOrdering Facility: [facility] Address: [address] [place] [address] Result Comment: <150 mg/dL, Normal 150-199 mg/dL, Borderline high 200-499 mg/dL, High >499 mg/dL, Very high Performed By: #### L IPNF, , 2132-06, 43630-8 ####[facility] LABCLIA [id number] [address] [address] [place] VLDL CHOLESTEROL, NF 26 mg/dL Normal <30 [facility] 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: Order Comment: Speci men Type: BLOOD SPECIMENOrdering Facility: [facility] Address: [address] [place] [address] Performed By: #### L IPNF, , 2132-06, ####[facility] LABCLIA [id number] [place] [id number] [place] [facility]21 Magnesium [Mass/Vol] 2.3 mg/dL Normal 1.7-2.3 [facility] 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: Order Comment: Speci men Type: BLOOD SPECIMENOrdering Facility: [facility] Address: [address] [place] [address] Performed By: #### L IPNF, , 2132-06, ####[facility] LABCLIA [id number] [address] [place] Vit B12 SerPl-mCncon 025 Cobalamin (Vitamin B12) [Mass/Vol] 385 pg/mL Normal 232-1245 [facility] 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: Order Comment: Speci men Type: BLOOD SPECIMENOrdering Facility: [facility] Address: [address] [place] [address] Performed By: #### L IPNF, , 2132-06, ####[facility] LABCLIA [id number] [place] [id number] [place] Molly 01-08-2025 [place]RT[place]N Telephone ([facility]) -------- CAL MITCHELL ([id number]) 1945 M Date Time Provider Department 01/08/25 RUTHIE CUEVAS During your visit today, we recorded the following information about you: Ruthie Cuevas [facility] 01/08/2025 9:14 AM Signed [facility] Anticoagulation Episode Summary Anticoagulation Care Providers Provider Role Specialty Phone number Guanakito Reno MD [facility] Medicine [phone] Cal Mitchell is a 79 year old year old male patient being evaluated today for a Telemanagement visit. Patient is currently on the following anticoagulant(s) Warfarin. Labs PT INR (no units) Date Value 09/28/2022 1.9 (self reporting) 01/24/2022 2.1 biotel 10/26/2021 2.1 (Biotel) INR (POCT) (no units) Date Value 07/23/2024 1.4 INR Home CoaguChek (no units) Date Value 01/07/2025 1.8 12/27/2024 1.5 12/10/2024 2.3 Hemoglobin (g/dL) Date Value 07/12/2024 10.3 10/06/2020 12.3 Hematocrit (%) Date Value 07/12/2024 34.7 10/06/2020 39.0 Platelet Count (k/uL) Date Value 07/12/2024 190 10/06/2020 189 Creatinine (mg/dL) Date Value 07/12/2024 2.40 04/19/2024 2.35 04/04/2024 2.61 10/06/2020 1.60 07/18/2019 1.46 03/18/2019 1.51 Bilirubin, Total (mg/dL) Date Value 07/12/2024 0.4 10/06/2020 0.4 ALT (U/L) Date Value 07/12/2024 23 10/06/2020 16 AST (U/L) Date Value 07/12/2024 25 10/06/2020 17 CrCl cannot be calculated (Unknown ideal weight.). 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 Next home INR check scheduled on 01/22/2025 Asked them to call to discuss since we usually get a VM. Patient advised to call the PAC with any medication changes, bleeding/bruising concerns, recent changes in vitamin k consumption, if any procedures are coming up, if they have been ill or in the hospital, and if they have missed any doses of warfarin. Ruthie Cuevas [facility] Clinical Pharmacist, Pharmacy Anticoagulation Clinic Pharmacy Anticoagulation Clinic Pager: [phone]. Ruthie Cuevas RPh 01/29/2025 11:08 AM Addendum Cal Mitchell was called and reminded to test INR today or as soon as possible. LVMX for January. 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 - escitalopram oxalate (LEXAPRO) 10 mg tablet Take 1 tablet by mouth once daily. - finasteride (PROSCAR) 5 mg tablet Take 1 tablet by mouth once daily. - lisinopril (ZESTRIL) 10 mg tablet Take 1 tablet by mouth once daily. - metoprolol succinate ER (TOPROL XL) 25 mg 24 hr tablet Take 1 tablet by mouth once daily. - memantine (NAMENDA) 10 mg tablet Take 1 tablet by mouth once daily. - loratadine 5 mg chewable tablet Take 1 tablet by mouth once daily. - carboxymethylcellulose sodium (LUBRICANT DRY EYE RELIEF) 1 % dlgl Use 1-2 drops in both eyes as needed. - atorvastatin (LIPITOR) 80 mg tablet Take 1 tablet by mouth daily at bedtime. For cholesterol. - iv contrast (will be provided with radiology test) CTA ABD/PEL - No IV access, insert saline lock prior to the sedation, infusion, injection for imaging exam. Discontinue saline lock post exam. If Pt. has a central line or IVAD, may access for administration according to line specific nursing protocol. Once exam is complete flush line and de-access according to line specific nursing protocol in the CT contrast administration guidelines link. - warfarin (COUMADIN) 5 mg tablet 7.5 mg on Monday, 5 mg all other days or as directed - nitroglycerin sublingual (NITROQUICK) 0.4 mg SL tablet Dissolve 1 tablet under the tongue as needed. for chest pain,every 5 min x3 - blood sugar diagnostic (ONETOUCH ULTRA TEST) test strip Test blood sugar(s) one times daily. Dx: 250.00. Insulin: No - Lancets (ONE TOUCH DELICA) [facility] lancets Test blood sugar(s) one time daily. Dx: 250.00. Insulin: No Problem List As Of Date 01/08/2025 (more content not included)... Normal [facility] -------- CAL MITCHELL ([id number]) 1945 M Date Time Provider Department 12/30/24 TWIN [place]LE During your visit today, we recorded the following information about you: Twin Cole [facility] 12/30/2024 9:14 AM Signed [facility] Anticoagulation Episode Summary Anticoagulation Care Providers Provider Role Specialty Phone number Guanakito Reno MD [facility] [phone] Cal Mitchell is a 79 year old year old male patient being evaluated today for a Telemanagement visit. Patient is currently on the following anticoagulant(s) Warfarin. Labs PT INR (no units) Date Value 09/28/2022 1.9 (self reporting) 01/24/2022 2.1 biotel 10/26/2021 2.1 (Biotel) INR (POCT) (no units) Date Value 07/23/2024 1.4 INR Home CoaguChek (no units) Date Value 12/27/2024 1.5 12/10/2024 2.3 11/26/2024 1.5 Hemoglobin (g/dL) Date Value 07/12/2024 10.3 10/06/2020 12.3 Hematocrit (%) Date Value 07/12/2024 34.7 10/06/2020 39.0 Platelet Count (k/uL) Date Value 07/12/2024 190 10/06/2020 189 Creatinine (mg/dL) Date Value 07/12/2024 2.40 04/19/2024 2.35 04/04/2024 2.61 10/06/2020 1.60 07/18/2019 1.46 03/18/2019 1.51 Bilirubin, Total (mg/dL) Date Value 07/12/2024 0.4 10/06/2020 0.4 ALT (U/L) Date Value 07/12/2024 23 10/06/2020 16 AST (U/L) Date Value 07/12/2024 25 10/06/2020 17 CrCl cannot be calculated (Unknown ideal weight.). 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: Anticoagulation Episode Summary Current INR goal: 2.0-3.0 Assessment: INR result of 1.5 is SUBtherapeutic due to: unknown cause - did not speak to patient Plan: Current Warfarin Dosing As of 12/30/2024 Full warfarin instructions: 12/30: 7.5 mg; Otherwise 5 mg every day Left voice message on # Advised patient to increase dose for 1 day only then resume weekly regimen Next home INR check scheduled on 01/07/2025 Patient advised to call the PAC with any medication changes, bleeding/bruising concerns, recent changes in vitamin k consumption, if any procedures are coming up, if they have been ill or in the hospital, and if they have missed any doses of warfarin. Twin Cole [facility] Clinical Pharmacist, Pharmacy Anticoagulation Clinic Pharmacy Anticoagulation Clinic Pager: [phone]. Octavio (Spray Drier Operator Helper)Ruben 12/30/2024 9:15 AM Signed [facility] called regarding INR result for patient. Result has been addressed below, no further action needed. Ruben Cunningham, Home And School Visitor (refrigerating technician) Pharmacy Anticoagulation Clinic Jimmy Carrizales [facility] 01/07/2025 12:02 PM Signed Cal Mitchell was called, lvmx and reminded to test INR today or as soon as possible given that we left a VM last week also. [facility] Allerg[facility] As of Date: 12/30/2024 (No Known Allergies) Date Reviewed: 08/06/2024 Reviewed by: Bi Cantu LPN - Fully Assessed Reason for Visit: Anticoagulation Telephone Fu [148] Cmt: Home INR result Prescriptions as of 01/07/2025 - atorvastatin (LIPITOR) 80 mg tablet Take 1 tablet by mouth daily at bedtime. For cholesterol. - clopidogrel (PLAVIX) 75 mg tablet Take 1 tablet by mouth once daily. - atorvastatin (LIPITOR) 80 mg tablet Take 1 tablet by mouth daily at bedtime. For cholesterol. - metoprolol succinate ER (TOPROL XL) 25 mg 24 hr tablet Take 1 tablet by mouth once daily. - iv contrast (will be provided with radiology test) CTA ABD/PEL - No IV access, insert saline lock prior to the sedation, infusion, injection for imaging exam. Discontinue saline lock post exam. If Pt. has a central line or IVAD, may access for administration according to line specific nursing protocol. Once exam is complete flush line and de-access according to line specific nursing protocol in the CT contrast administration guidelines link. - enoxaparin (LOVENOX) 100 mg/mL syrg Inject 1 mL subcutaneously once daily. Inject entire contents of one(1) syringe - escitalopram oxalate (LEXAPRO) 10 mg tablet Take 1 tablet by mouth once daily. - finasteride (PROSCAR) 5 mg tablet Take 1 tablet by mouth once daily. - lisinopril (ZESTRIL) 20 mg tablet Take 1 tablet by mouth once daily. - warfarin (COUMADIN) 5 mg tablet 7.5 mg on Monday, 5 mg all other days or as directed - memantine (NAMENDA) 10 mg tablet Take 1 tablet by mouth once daily. - nitroglycerin sublingual (NITROQUICK) 0.4 mg SL tablet Dissolve 1 tablet under the tongue as needed. for chest pain,every 5 min x3 - acetaminophen (TYLENOL) 500 mg tablet Take 500 mg by mouth every 8 hours as needed. - blood sugar diagnostic (ONETOUCH ULTRA TEST) test strip Test blood sugar(s) one times daily. Dx: 250.00. Insulin: No - Lancets (ONE TOUCH DELICA) [facility] lancets Test blood sugar(s (more content not included)... Normal [facility] 12-11-2024 CNPN Telephone (MIGUELMTE) -------- CAL MITCHELL ([id number]) 1945 M Date Time Provider Department 12/11/24 JIMMY CARRIZALES During your visit today, we recorded the following information about you: Jimmy Carrizales, [facility] 12/11/2024 9:51 AM Signed [facility] Anticoagulation Episode Summary Anticoagulation Care Providers Provider Role Specialty Phone number Guanakito Reno MD [facility] Family Medicine [phone] Cal Lua Paula is a 79 year old year old male patient being evaluated today for a Telemanagement visit. Patient is currently on the following anticoagulant(s) Warfarin. Labs PT INR (no units) Date Value 09/28/2022 1.9 (self reporting) 01/24/2022 2.1 biotel 10/26/2021 2.1 (Biotel) INR (POCT) (no units) Date Value 07/23/2024 1.4 INR Home CoaguChek (no units) Date Value 12/10/2024 2.3 11/26/2024 1.5 10/28/2024 1.9 Hemoglobin (g/dL) Date Value 07/12/2024 10.3 10/06/2020 12.3 Hematocrit (%) Date Value 07/12/2024 34.7 10/06/2020 39.0 Platelet Count (k/uL) Date Value 07/12/2024 190 10/06/2020 189 Creatinine (mg/dL) Date Value 07/12/2024 2.40 04/19/2024 2.35 04/04/2024 2.61 10/06/2020 1.60 07/18/2019 1.46 03/18/2019 1.51 Bilirubin, Total (mg/dL) Date Value 07/12/2024 0.4 10/06/2020 0.4 ALT (U/L) Date Value 07/12/2024 23 10/06/2020 16 AST (U/L) Date Value 07/12/2024 25 10/06/2020 17 CrCl cannot be calculated (Unknown ideal weight.). 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: [facility] (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 Paroxysmal atrial fibrillation (hcc) Anticoagulation Episode Summary Current INR goal: 2.0-3.0 Assessment: INR result of 2.3 is therapeutic Plan: Current Warfarin Dosing As of 12/11/2024 Full warfarin instructions: 5 mg every day Left voice message Advised patient to continue current weekly dose as noted above Next home INR check scheduled on 12/24/2024 Patient advised to call the PAC with any medication changes, bleeding/bruising concerns, recent changes in vitamin k consumption, if any procedures are coming up, if they have been ill or in the hospital, and if they have missed any doses of warfarin. Jimmy Carrizales [facility] Clinical Pharmacist, Pharmacy Anticoagulation Clinic Pharmacy Anticoagulation Clinic Pager: [phone]. Ruthie Cuevas [facility] 12/25/2024 11:14 AM Signed Patient was due to test INR today will continue to monitor for results. Follow up in one week if no results received. 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 For cholesterol. - clopidogrel (PLAVIX) 75 mg tablet Take 1 tablet by mouth once daily. - atorvastatin (LIPITOR) 80 mg tablet Take 1 tablet by mouth daily at bedtime. For cholesterol. - metoprolol succinate ER (TOPROL XL) 25 mg 24 hr tablet Take 1 tablet by mouth once daily. - iv contrast (will be provided with radiology test) CTA ABD/PEL - No IV access, insert saline lock prior to the sedation, infusion, injection for imaging exam. Discontinue saline lock post exam. If Pt. has a central line or IVAD, may access for administration according to line specific nursing protocol. Once exam is complete flush line and de-access according to line specific nursing protocol in the CT contrast administration guidelines link. - enoxaparin (LOVENOX) 100 mg/mL syrg Inject 1 mL subcutaneously once daily. Inject entire contents of one(1) syringe - escitalopram oxalate (LEXAPRO) 10 mg tablet Take 1 tablet by mouth once daily. - finasteride (PROSCAR) 5 mg tablet Take 1 tablet by mouth once daily. - lisinopril (ZESTRIL) 20 mg tablet Take 1 tablet by mouth once daily. - warfarin (COUMADIN) 5 mg tablet 7.5 mg on Monday, 5 mg all other days or as directed - memantine (NAMENDA) 10 mg tablet Take 1 tablet by mouth once daily. - nitroglycerin sublingual (NITROQUICK) 0.4 mg SL tablet Dissolve 1 tablet under the tongue as needed. for chest pain,every 5 min x3 - acetaminophen (TYLENOL) 500 mg tablet Take 500 mg by mouth every 8 hours as needed. - blood sugar grey (more content not included)... Normal [facility] CNPNon 11-26-2024 CNPN Telephone (PHAMTE) -------- PAULACAL Chanell ([id number]) 1945 M Date Time Provider Department 11/26/24 TWIN COLE PHAMTE During your visit today, we recorded the following information about you: Twin Cole [facility] 11/26/2024 5:29 PM Signed [facility] Anticoagulation Episode Summary Anticoagulation Care Providers Provider Role Specialty Phone number Guanakito Reno MD [facility] Medicine [phone] Cal Lua Paula is a 79 year old year old male patient being evaluated today for a Telemanagement visit. Patient is currently on the following anticoagulant(s) Warfarin. Labs PT INR (no units) Date Value 09/28/2022 1.9 (self reporting) 01/24/2022 2.1 biotel 10/26/2021 2.1 (Biotel) INR (POCT) (no units) Date Value 07/23/2024 1.4 INR Home CoaguChek (no units) Date Value 11/26/2024 1.5 10/28/2024 1.9 09/30/2024 1.8 Hemoglobin (g/dL) Date Value 07/12/2024 10.3 10/06/2020 12.3 Hematocrit (%) Date Value 07/12/2024 34.7 10/06/2020 39.0 Platelet Count (k/uL) Date Value 07/12/2024 190 10/06/2020 189 Creatinine (mg/dL) Date Value 07/12/2024 2.40 04/19/2024 2.35 04/04/2024 2.61 10/06/2020 1.60 07/18/2019 1.46 03/18/2019 1.51 Bilirubin, Total (mg/dL) Date Value 07/12/2024 0.4 10/06/2020 0.4 ALT (U/L) Date Value 07/12/2024 23 10/06/2020 16 AST (U/L) Date Value 07/12/2024 25 10/06/2020 17 CrCl cannot be calculated (Unknown ideal weight.). 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: Anticoagulation Episode Summary Current INR goal: 2.0-3.0 Assessment: INR result of 1.5 is SUBtherapeutic due to: Missed dose(s) Plan: Current Warfarin Dosing As of 11/26/2024 Full warfarin instructions: 11/26: 7.5 mg; Otherwise 5 mg every day Called and spoke to patient/caregiver January Advised patient to increase dose for 1 day only then resume weekly regimen Next home INR check scheduled on 12/10/2024 Patient's caregiver verbalizes understanding of the plan. Patient advised to call the PAC with any medication changes, bleeding/bruising concerns, recent changes in vitamin k consumption, if any procedures are coming up, if they have been ill or in the hospital, and if they have missed any doses of warfarin. Twin Cole RPh Clinical Pharmacist, Pharmacy Anticoagulation Clinic Pharmacy Anticoagulation Clinic Pager: [phone]. Yamilka Heath RN 11/27/2024 8:43 AM Signed Chris Ruggiero left a VM regarding the patient's INR result on 11/26/2024. Noted result has been addressed below. BENJIE Cardenas Kim, RPh 12/10/2024 10:31 AM Signed Cal Mitchell was called and reminded to test INR today or as soon as possible. Left VM on January' number. Twin Cole RPh Allergies As of Date: 11/26/2024 (No Known Allergies) Date Reviewed: 08/06/2024 Reviewed by: Bi Cantu LPN - Fully Assessed Reason for Visit: Anticoagulation Telephone Fu [148] Cmt: Home INR result Prescriptions as of 12/10/2024 - atorvastatin (LIPITOR) 80 mg tablet Take 1 tablet by mouth daily at bedtime. For cholesterol. - clopidogrel (PLAVIX) 75 mg tablet Take 1 tablet by mouth once daily. - atorvastatin (LIPITOR) 80 mg tablet Take 1 tablet by mouth daily at bedtime. For cholesterol. - metoprolol succinate ER (TOPROL XL) 25 mg 24 hr tablet Take 1 tablet by mouth once daily. - iv contrast (will be provided with radiology test) CTA ABD/PEL - No IV access, insert saline lock prior to the sedation, infusion, injection for imaging exam. Discontinue saline lock post exam. If Pt. has a central line or IVAD, may access for administration according to line specific nursing protocol. Once exam is complete flush line and de-access according to line specific nursing protocol in the CT contrast administration guidelines link. - enoxaparin (LOVENOX) 100 mg/mL syrg Inject 1 mL subcutaneously once daily. Inject entire contents of one(1) syringe - escitalopram oxalate (LEXAPRO) 10 mg tablet Take 1 tablet by mouth once daily. - finasteride (PROSCAR) 5 mg tablet Take 1 tablet by mouth once daily. - lisinopril (ZESTRIL) 20 mg tablet Take 1 tablet by mouth once daily. - warfarin (COUMADIN) 5 mg tablet 7.5 mg on Monday, 5 mg all other days or as directed - memantine (NAMENDA) 10 mg tablet Take 1 tablet by mouth once daily. - nitroglycerin sublingual (NITROQUICK) 0.4 mg SL tablet Dissolve 1 tablet under the tongue as needed. for chest pain,every 5 min x3 - acetaminophen (TYLENOL) 500 mg tablet Take 500 mg by mouth every 8 hours as needed. - blood sugar diagnostic (ONETOUCH ULTRA TEST) test strip Test blood sugar(s) one times daily. Dx: 250.00. Insulin: No - Lancets (ONE TOUCH DELICA) [facility] lancets Test blood sugar(s) one time daily. Dx: 250.00. Insulin: No Problem Lis (more content not included)... Normal [facility] Molly 10-28-2024 KOURTNEYN Telephone (Stamp.itE) -------- CAL MITCHELL ([id number]) 1945 M Date Time Provider Department 10/28/24 ALEJANDRO MOLINA During your visit today, we recorded the following information about you: Alejandro Molina RPh 10/28/2024 5:07 PM Signed [facility] Anticoagulation Clinic Anticoagulation Episode Summary Anticoagulation Care Providers Provider Role Specialty Phone number Guanakito Reno MD [facility] [phone] Cal Mitchell is a 79 year old year old male patient being evaluated today for a Telemanagement visit. Patient is currently on the following anticoagulant(s) Warfarin. Labs PT INR (no units) Date Value 09/28/2022 1.9 (self reporting) 01/24/2022 2.1 biotel 10/26/2021 2.1 (Biotel) INR (POCT) (no units) Date Value 07/23/2024 1.4 INR Home CoaguChek (no units) Date Value 10/28/2024 1.9 09/30/2024 1.8 08/24/2024 3.0 Estimated Creatinine Clearance: 29.8 mL/min (A) (based on SCr of 2.4 mg/dL (H)). 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: Anticoagulation Episode Summary Current INR goal: 2.0-3.0 Assessment: INR result of 1.9 is SUBtherapeutic due to: unknown cause - did not speak to patient Plan: Current Warfarin Dosing As of 10/28/2024 Full warfarin instructions: 10/28: 7.5 mg; Otherwise 5 mg every day Left voice message Advised patient to increase dose for 1 day only then resume weekly regimen Next INR check due on 11/11/2024 Patient instructed to call [facility] at [phone] with any questions or concerns. Alejandro Molina RPh Clinical Pharmacist, Pharmacy Anticoagulation Clinic Pharmacy Anticoagulation Clinic Pager: [phone] Alejandro Molina RPh 11/11/2024 4:42 PM Signed Patient was due to test INR today. Will continue to monitor for results. Will follow up in one week if no results received. Alejandro Molina RPh 11/18/2024 4:27 PM Signed Cal Mitchell was called and reminded to test INR today or as soon as possible. Stuart Costa Kim [facility] 11/25/2024 2:53 PM Signed Added to discharge list Daniel (Spray Drier Operator Helper)Ashley 11/26/2024 2:43 PM Signed DISCHARGE No return call from patient. Letter sent. FINAL ATTEMPT letter sent at this time. If no response from patient within 4 weeks, patient will be discharged from PAC at that time. Will also route to referring MD as FYI and to see if office can assist in reaching patient. Ashley Sanchez CPhT (Home [employer] Visitor) Pharmacy Anticoagulation Clinic Guanakito Reno MD 11/26/2024 3:14 PM Signed Check what is going on with his inr. Carolina Alba MA 11/26/2024 3:41 PM Signed Spoke with son-in-law Gustavo in great depth. He is going to call his Elly (Patients daughter) and get the date of last INR, result and current dosage of coumadin and call us back with information. I explained to Gustavo that cal has since been discharged from the pharmacy anticoag clinic. They either need to be more diligent in testing regularly and reporting to pharmacy or he'll have to start coming into the office for INR checks. Await call back for info and then please send to Dr. Reno. CHANCE Ramirez Krista, LPN 11/26/2024 4:20 PM Signed Pt's daughter calls in to report: Last INR: 10/28/24 - 1.9 Coumadin dose: 5 mg daily JUANITO Eldridge William J, MD 11/26/2024 4:26 PM Signed If still has machine. Needs to follow their directions and check it at least every two weeks and they will have to contact pharmacy see if pharmacy will continue to follow. Otherwise, will need inr this week here. Let me know what they decide Carolina Alba MA 11/26/2024 4:55 PM Signed Called and spoke to Elly and Gustavo. Gave them the pharmacy anticoag clinic phone number and they are going to reach out to them and try and straighten everything out. Advised them to call us back with any issues if pharmacy states they cannot take him back. Daughter states it's not an option for the patient to come into the office for INR checks every couple weeks. States patient has dementia and doesn't understand things anymore. 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 CHANCE Ramirez ([place])Ashley 11/26/2024 5:07 PM Signed PATIENT CALL Patient called call center regarding testing. Patient's daughter called and stated they just got a call from that stated patient was past due for INR check and was about to be DCd from PAC. Daughter apologized that she was late but stated she never got any phone calls or messages about when to test next. She stated she will check INR today (11/26) with home meter. Advised we will most likely not get result until the morning but we will call with dosing once received. PAC will await results. Ashley Sanchez ([facility] (more content not included)... Normal [facility] 10-21-2024 CNPN Telephone (FAMPriteshWS) -------- CAL MITCHELL ([id number]) 1945 M Date Time Provider Department 10/21/24 [facility] During your visit today, we recorded the following information about you: Ashley De Dios RN 10/21/2024 1:29 PM Signed Pts son in law Chen call in and reports Pt has had cold and congestion x1 week. Pt is asking what he can take OTC for it today. Pt has a cough and is bringing up a small amount of white/clear phlegm, a runny nose with white drainage, some wheezing, SOB with exertion. Pts daughter state his eyes are red, but no drainage or crust. Denies fever or chest pain. They are wanting to know what the Pt would be able to take OTC with his medications and medical history. They deny testing him for Covid. Please call and advise. Guanakito Reno MD 10/21/2024 1:55 PM Signed Can try mucinex otc. Call if symptoms worsen at all or if not better in one to two weeks Ashley De Dios RN 10/21/2024 2:04 PM Signed Pts ALEC Chen called and is notified of providers message and instructions. He voices understanding. He was asking about what they should give him in case he has any pain with his stage 4 Kidney disease and being on Coumadin. I told him the NSAIDs are worse on the kidneys and can cause bleeding, the Tylenol is harder on the liver. I told him I would ask the provider and have him get back to the Pt. BENJIE García William J, MD 10/21/2024 2:26 PM Signed agree Ashley De Dios RN 10/21/2024 2:59 PM Signed Pt ALEC Chen called and is notified of providers message. He voices understanding. Ashley De Dios RN Allergies As of Date: 10/21/2024 (No Known Allergies) Date Reviewed: 08/06/2024 Reviewed by: Bi Cantu LPN - Fully Assessed Reason for Visit: Patient Update [1234] Patient Question [[id number]] Prescriptions as of 10/21/2024 - atorvastatin (LIPITOR) 80 mg tablet Take 1 tablet by mouth daily at bedtime. For cholesterol. - clopidogrel (PLAVIX) 75 mg tablet Take 1 tablet by mouth once daily. - atorvastatin (LIPITOR) 80 mg tablet Take 1 tablet by mouth daily at bedtime. For cholesterol. - metoprolol succinate ER (TOPROL XL) 25 mg 24 hr tablet Take 1 tablet by mouth once daily. - iv contrast (will be provided with radiology test) CTA ABD/PEL - No IV access, insert saline lock prior to the sedation, infusion, injection for imaging exam. Discontinue saline lock post exam. If Pt. has a central line or IVAD, may access for administration according to line specific nursing protocol. Once exam is complete flush line and de-access according to line specific nursing protocol in the CT contrast administration guidelines link. - enoxaparin (LOVENOX) 100 mg/mL syrg Inject 1 mL subcutaneously once daily. Inject entire contents of one(1) syringe - escitalopram oxalate (LEXAPRO) 10 mg tablet Take 1 tablet by mouth once daily. - finasteride (PROSCAR) 5 mg tablet Take 1 tablet by mouth once daily. - lisinopril (ZESTRIL) 20 mg tablet Take 1 tablet by mouth once daily. - warfarin (COUMADIN) 5 mg tablet 7.5 mg on Monday, 5 mg all other days or as directed - memantine (NAMENDA) 10 mg tablet Take 1 tablet by mouth once daily. - nitroglycerin sublingual (NITROQUICK) 0.4 mg SL tablet Dissolve 1 tablet under the tongue as needed. for chest pain,every 5 min x3 - acetaminophen (TYLENOL) 500 mg tablet Take 500 mg by mouth every 8 hours as needed. - blood sugar diagnostic (ONETOUCH ULTRA TEST) test strip Test blood sugar(s) one times daily. Dx: 250.00. Insulin: No - Lancets (ONE TOUCH DELICA) [facility] lancets Test blood sugar(s) one time daily. Dx: 250.00. Insulin: No Problem List As Of Date 10/21/2024 Noted Resolved Hyperlipidemia, mixed [E78.2] Essential hypertension [I10] Peripheral arterial disease (HCC) [I73.9] Other symptoms involving cardiovascular system * 07/20/2016 ACTINIC KERATOSIS [L57.0] 10/12/2005 IMPACTED CERUMEN [H61.20] 10/12/2005 COPD (chronic obstructive pulmonary disease) (H* 01/29/2020 Obesity, unspecified [E66.9] 07/12/2024 Dysmetabolic Syndrome X [E88.810] 06/24/2005 11/27/2009 OTHER ABNORMAL GLUCOSE [R73.09] 10/12/2005 10/02/2006 PAIN IN LIMB [M79.609] 02/15/2008 04/22/2009 Type 2 diabetes mellitus with stage 3 chronic k*11/27/2009 Pain in joint, shoulder region [M25.519] 12/07/2009 01/29/2020 SK (seborrheic keratosis) [L82.1] 01/26/2011 01/29/2020 AK (actinic keratosis) [L57.0] 01/26/2011 01/29/2020 Skin tags 01/26/2011 03/29/2011 Cutaneous skin tags [L91.8] 03/29/2011 05/24/2018 Occlusion and stenosis of unspecified carotid a*10/25/2013 03/26/2024 Frequency [SRN2754] 02/11/2016 03/26/2024 BPH (benign prostatic hypertrophy) with urinary*02/11/2016 Adhesive capsulitis of right shoulder [M75.01] 05/15/2018 Aortic stenosis [I35.0] 05/24/2018 CKD (chronic kidney disease) stage 3, GFR 30-59*05/24/2018 03/26/2024 Lung (more content not included)... Normal [facility] CNPNon 10-01-2024 CNPN Telephone (PHAMTE) -------- CAL MITCHELL ([id number]) 1945 M Date Time Provider Department 10/01/24 [place] During your visit today, we recorded the following information about you: Twin Cole [facility] 10/01/2024 9:42 AM Signed [facility] Anticoagulation Episode Summary Anticoagulation Care Providers Provider Role Specialty Phone number Guanakito Reno MD [facility] Family Medicine [phone] Cal Mitchell is a 79 year old year old male patient being evaluated today for a Telemanagement visit. Patient is currently on the following anticoagulant(s) Warfarin. Labs PT INR (no units) Date Value 09/28/2022 1.9 (self reporting) 01/24/2022 2.1 biotel 10/26/2021 2.1 (Biotel) INR (POCT) (no units) Date Value 07/23/2024 1.4 INR Home CoaguChek (no units) Date Value 09/30/2024 1.8 08/24/2024 3.0 07/31/2024 2.1 Hemoglobin (g/dL) Date Value 07/12/2024 10.3 10/06/2020 12.3 Hematocrit (%) Date Value 07/12/2024 34.7 10/06/2020 39.0 Platelet Count (k/uL) Date Value 07/12/2024 190 10/06/2020 189 Creatinine (mg/dL) Date Value 07/12/2024 2.40 04/19/2024 2.35 04/04/2024 2.61 10/06/2020 1.60 07/18/2019 1.46 03/18/2019 1.51 Bilirubin, Total (mg/dL) Date Value 07/12/2024 0.4 10/06/2020 0.4 ALT (U/L) Date Value 07/12/2024 23 10/06/2020 16 AST (U/L) Date Value 07/12/2024 25 10/06/2020 17 Estimated Creatinine Clearance: 29.8 mL/min (A) (based on SCr of 2.4 mg/dL (H)). 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: Anticoagulation Episode Summary Current INR goal: 2.0-3.0 Assessment: INR result of 1.8 is SUBtherapeutic due to: unknown cause - did not speak to patient Plan: Current Warfarin Dosing As of 10/01/2024 Full warfarin instructions: 10/01: 7.5 mg; Otherwise 5 mg every day Left voice message home AND mobile Advised patient to increase dose for 1 day only then resume weekly regimen Next home INR check scheduled on 10/15/2024 Patient advised to call the PAC with any medication changes, bleeding/bruising concerns, recent changes in vitamin k consumption, if any procedures are coming up, if they have been ill or in the hospital, and if they have missed any doses of warfarin. Twin Cole RPh Clinical Pharmacist, Pharmacy Anticoagulation Clinic Pharmacy Anticoagulation Clinic Pager: [phone]. Twin Cole RPh 10/15/2024 12:10 PM Signed Patient was due to test INR today. Will continue to monitor for results. Follow up in one week if no results received. Patient's INR Goal range is - 2.0-3.0 PT INR (no units) Date Value 09/28/2022 1.9 (self reporting) 01/24/2022 2.1 biotel 10/26/2021 2.1 (Biotel) INR (POCT) (no units) Date Value 07/23/2024 1.4 INR Home CoaguChek (no units) Date Value 09/30/2024 1.8 08/24/2024 3.0 07/31/2024 2.1 Patient is in titration phase - No Patient has dosing provided until next INR - Yes Patient is on an injectable anticoagulant - No Stuart HayesTwin Stuart 10/22/2024 10:56 AM Signed Cal Mitchell was called and reminded to test INR today or as soon as possible. Twin Cole RPh Allergies As of Date: 10/01/2024 (No Known Allergies) Date Reviewed: 08/06/2024 Reviewed by: Bi Cantu LPN - Fully Assessed Reason for Visit: Anticoagulation Telephone Fu [[id number]] Cmt: Home INR result Prescriptions as of 10/22/2024 - atorvastatin (LIPITOR) 80 mg tablet Take 1 tablet by mouth daily at bedtime. For cholesterol. - clopidogrel (PLAVIX) 75 mg tablet Take 1 tablet by mouth once daily. - atorvastatin (LIPITOR) 80 mg tablet Take 1 tablet by mouth daily at bedtime. For cholesterol. - metoprolol succinate ER (TOPROL XL) 25 mg 24 hr tablet Take 1 tablet by mouth once daily. - iv contrast (will be provided with radiology test) CTA ABD/PEL - No IV access, insert saline lock prior to the sedation, infusion, injection for imaging exam. Discontinue saline lock post exam. If Pt. has a central line or IVAD, may access for administration according to line specific nursing protocol. Once exam is complete flush line and de-access according to line specific nursing protocol in the CT contrast administration guidelines link. - enoxaparin (LOVENOX) 100 mg/mL syrg Inject 1 mL subcutaneously once daily. Inject entire contents of one(1) syringe - escitalopram oxalate (LEXAPRO) 10 mg tablet Take 1 tablet by mouth once daily. - finasteride (PROSCAR) 5 mg tablet Take 1 tablet by mouth once daily. - lisinopril (ZESTRIL) 20 mg tablet Take 1 tablet by mouth once daily. - warfarin (COUMADIN) 5 mg tablet 7.5 mg on Monday, 5 mg all other days or as directed - memantine (NAMENDA) 10 mg tablet Take 1 tablet by mouth once daily. - nitroglycerin sublingual (NITROQUICK) 0.4 mg SL tablet Dissolve (more content not included)... Normal [facility] Molly 08-26-2024 [facility]N [facility] CAL MITCHELL ([id number]) 1945 M Date Time Provider Department 08/26/24 ALEJANDRO MOLINA During your visit today, we recorded the following information about you: Alejandro Molina [facility] 08/26/2024 6:35 AM Signed [facility] Anticoagulation Episode Summary Anticoagulation Care Providers Provider Role Specialty Phone number Guanakito Reno MD [facility] [phone] Cal Mitchell is a 79 year old year old male patient being evaluated today for a Telemanagement visit. Patient is currently on the following anticoagulant(s) Warfarin. Labs PT INR (no units) Date Value 09/28/2022 1.9 (self reporting) 01/24/2022 2.1 biotel 10/26/2021 2.1 (Biotel) INR (no units) Date Value 07/22/2024 1.5 07/12/2024 2.8 INR (POCT) (no units) Date Value 07/23/2024 1.4 INR Home CoaguChek (no units) Date Value 08/24/2024 3.0 07/31/2024 2.1 07/04/2024 2.2 Hemoglobin (g/dL) Date Value 07/12/2024 10.3 10/06/2020 12.3 Hematocrit (%) Date Value 07/12/2024 34.7 10/06/2020 39.0 Platelet Count (k/uL) Date Value 07/12/2024 190 10/06/2020 189 Creatinine (mg/dL) Date Value 07/12/2024 2.40 04/19/2024 2.35 04/04/2024 2.61 10/06/2020 1.60 07/18/2019 1.46 03/18/2019 1.51 Bilirubin, Total (mg/dL) Date Value 07/12/2024 0.4 10/06/2020 0.4 ALT (U/L) Date Value 07/12/2024 23 10/06/2020 16 AST (U/L) Date Value 07/12/2024 25 10/06/2020 17 Estimated Creatinine Clearance: 29.8 mL/min (A) (based on SCr of 2.4 mg/dL (H)). 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: Anticoagulation Episode Summary Current INR goal: 2.0-3.0 Assessment: INR result of 3.0 is therapeutic Plan: Current Warfarin Dosing As of 08/26/2024 Full warfarin instructions: 5 mg every day Sent [email or web address] message Advised patient to continue current weekly dose as noted above Next INR check due on 09/09/2024 Alejandro Molina [facility] Clinical Pharmacist, Pharmacy Anticoagulation Clinic Pharmacy Anticoagulation Clinic Pager: [phone]. Alejandro Molina RPh 09/09/2024 4:38 PM Signed Patient was due to test INR today. Will continue to monitor for results. Will follow up in one week if no results received. Alejandro Molina bobbi 09/23/2024 2:35 PM Signed Cal Lua Paula was called and reminded to test INR today or as soon as possible. Alejandro Molina [facility] Twin Cole RPh 09/30/2024 12:31 PM Signed Added to discharge list Allergies As of Date: 08/26/2024 (No Known Allergies) Date Reviewed: 08/06/2024 Reviewed by: Bi Cantu LPN - Fully Assessed Reason for Visit: Anticoagulation Telephone Fu [148] Cmt: Home INR Result Prescriptions as of 09/30/2024 - atorvastatin (LIPITOR) 80 mg tablet Take 1 tablet by mouth daily at bedtime. For cholesterol. - clopidogrel (PLAVIX) 75 mg tablet Take 1 tablet by mouth once daily. - atorvastatin (LIPITOR) 80 mg tablet Take 1 tablet by mouth daily at bedtime. For cholesterol. - metoprolol succinate ER (TOPROL XL) 25 mg 24 hr tablet Take 1 tablet by mouth once daily. - iv contrast (will be provided with radiology test) CTA ABD/PEL - No IV access, insert saline lock prior to the sedation, infusion, injection for imaging exam. Discontinue saline lock post exam. If Pt. has a central line or IVAD, may access for administration according to line specific nursing protocol. Once exam is complete flush line and de-access according to line specific nursing protocol in the CT contrast administration guidelines link. - enoxaparin (LOVENOX) 100 mg/mL syrg Inject 1 mL subcutaneously once daily. Inject entire contents of one(1) syringe - escitalopram oxalate (LEXAPRO) 10 mg tablet Take 1 tablet by mouth once daily. - finasteride (PROSCAR) 5 mg tablet Take 1 tablet by mouth once daily. - lisinopril (ZESTRIL) 20 mg tablet Take 1 tablet by mouth once daily. - warfarin (COUMADIN) 5 mg tablet 7.5 mg on Monday, 5 mg all other days or as directed - memantine (NAMENDA) 10 mg tablet Take 1 tablet by mouth once daily. - nitroglycerin sublingual (NITROQUICK) 0.4 mg SL tablet Dissolve 1 tablet under the tongue as needed. for chest pain,every 5 min x3 - acetaminophen (TYLENOL) 500 mg tablet Take 500 mg by mouth every 8 hours as needed. - blood sugar diagnostic (ONETOUCH ULTRA TEST) test strip Test blood sugar(s) one times daily. Dx: 250.00. Insulin: No - Lancets (ONE TOUCH DELICA) [facility] lancets Test blood sugar(s) one time daily. Dx: 250.00. Insulin: No Problem List As Of Date 08/26/2024 Noted Resolved Hyperlipidemia, mixed [E78.2] Essential hypertension [I10] Peripheral arterial disease (HCC) [I73.9] Other symptoms involving cardiovascular system * 07/20/2016 ACTINIC KERATOSIS [L57.0] 10/12/2005 IMPACTED CERUMEN [H61.20] (more content not included)... Normal [facility] Molly 08-16-2024 KOURTNEYN Telephone ([facility]) -------- CAL MITCHELL ([id number]) 1945 M Date Time Provider Department 08/16/24 JIMMY PERKINS During your visit today, we recorded the following information about you: Josselyn Mayer APRN.CNP 08/30/2024 1:49 PM Signed Please call patient and let him know his Holter Monitor did not reveal any significant arrhythmias but he was bradycardic 47% of the time. Please advise patient to decrease his Toprol XL to 25 mg daily. QUIQUE Chapa Nichole L, APRN.CNP 08/30/2024 1:50 PM Signed Addended by: JOSSELYN MAYER on: 08/30/2024 01:50 PM Modules accepted: Orders Valerie Duke LPN 08/30/2024 2:01 PM Signed I spoke to January and informed them of Josselyn's response to monitor results and recommendations. She voiced understanding. Valerie Duke LPN Allergies As of Date: 08/16/2024 (No Known Allergies) Date Reviewed: 08/06/2024 Reviewed by: Bi Cantu LPN - Fully Assessed Reason for Visit: Patient Update [1234] Order(s):metoprolol succinate ER (TOPROL XL) 25 mg 24 hr tabletTake 1 tablet by mouth once daily.Disp: 90 tabletRfl: 3 Prescriptions as of 08/30/2024 - metoprolol succinate ER (TOPROL XL) 25 mg 24 hr tablet Take 1 tablet by mouth once daily. - iv contrast (will be provided with radiology test) CTA ABD/PEL - No IV access, insert saline lock prior to the sedation, infusion, injection for imaging exam. Discontinue saline lock post exam. If Pt. has a central line or IVAD, may access for administration according to line specific nursing protocol. Once exam is complete flush line and de-access according to line specific nursing protocol in the CT contrast administration guidelines link. - enoxaparin (LOVENOX) 100 mg/mL syrg Inject 1 mL subcutaneously once daily. Inject entire contents of one(1) syringe - atorvastatin (LIPITOR) 80 mg tablet Take 1 tablet by mouth daily at bedtime. For cholesterol. - escitalopram oxalate (LEXAPRO) 10 mg tablet Take 1 tablet by mouth once daily. - finasteride (PROSCAR) 5 mg tablet Take 1 tablet by mouth once daily. - lisinopril (ZESTRIL) 20 mg tablet Take 1 tablet by mouth once daily. - clopidogrel (PLAVIX) 75 mg tablet Take 1 tablet by mouth once daily. - warfarin (COUMADIN) 5 mg tablet 7.5 mg on Monday, 5 mg all other days or as directed - memantine (NAMENDA) 10 mg tablet Take 1 tablet by mouth once daily. - nitroglycerin sublingual (NITROQUICK) 0.4 mg SL tablet Dissolve 1 tablet under the tongue as needed. for chest pain,every 5 min x3 - acetaminophen (TYLENOL) 500 mg tablet Take 500 mg by mouth every 8 hours as needed. - blood sugar diagnostic (MyTrainerUCH ULTRA TEST) test strip Test blood sugar(s) one times daily. Dx: 250.00. Insulin: No - Lancets (ONE TOUCH DELICA) Misc lancets Test blood sugar(s) one time daily. Dx: 250.00. Insulin: No Problem List As Of Date 08/16/2024 Noted Resolved Hyperlipidemia, mixed [E78.2] Essential hypertension [I10] Peripheral arterial disease (HCC) [I73.9] Other symptoms involving cardiovascular system * 07/20/2016 ACTINIC KERATOSIS [L57.0] 10/12/2005 IMPACTED CERUMEN [H61.20] 10/12/2005 COPD (chronic obstructive pulmonary disease) (H* 01/29/2020 Obesity, unspecified [E66.9] 07/12/2024 Dysmetabolic Syndrome X [E88.810] 06/24/2005 11/27/2009 OTHER ABNORMAL GLUCOSE [R73.09] 10/12/2005 10/02/2006 PAIN IN LIMB [M79.609] 02/15/2008 04/22/2009 Type 2 diabetes mellitus with stage 3 chronic k*11/27/2009 Pain in joint, shoulder region [M25.519] 12/07/2009 01/29/2020 SK (seborrheic keratosis) [L82.1] 01/26/2011 01/29/2020 AK (actinic keratosis) [L57.0] 01/26/2011 01/29/2020 Skin tags 01/26/2011 03/29/2011 Cutaneous skin tags [L91.8] 03/29/2011 05/24/2018 Occlusion and stenosis of unspecified carotid a*10/25/2013 03/26/2024 Frequency [GAH6065] 02/11/2016 03/26/2024 BPH (benign prostatic hypertrophy) with urinary*02/11/2016 Adhesive capsulitis of right shoulder [M75.01] 05/15/2018 Aortic stenosis [I35.0] 05/24/2018 CKD (chronic kidney disease) stage 3, GFR 30-59*05/24/2018 03/26/2024 Lung nodule [R91.1] 06/07/2018 Ectatic thoracic aorta (HCC) [I77.810] 06/07/2018 Paroxysmal atrial fibrillation (HCC) [I48.0] 03/05/2019 Inflamed seborrheic keratosis [L82.0] 03/14/2019 08/14/2023 Neoplasm of uncertain behavior of skin [D48.5] 03/14/2019 08/14/2023 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 Normal [facility] Renal Profileon 08-07-2024 Albumin [Mass/Vol] 3.3 g/dL Normal 3.2-5.0 [facility] 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: Performed By: #### L 500.3600 ####[facility] [address] [place], [place], [address] BUN/CRE 14.3 RATIO Normal 08-04 [facility] 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: Performed By: #### L 500.3600 ####[facility] [address] [place], [address] CA,Total 8.4 mg/dL Low 8.5-10.1 [facility] 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: Performed By: #### L 500.3600 ####[facility] [address] [place], [address] Chloride [Moles/Vol] 114 mmol/L High 98-107 [facility] 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: Performed By: #### L 500.3600 ####[facility] [address] [place], [address] CO2 [Moles/Vol] 25.0 mmol/L Normal 21.0-32.0 [facility] 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: Performed By: #### L 500.3600 ####[facility] [address] [place], [address] Creatinine [Mass/Vol] 2.45 mg/dL High 0.70-1.30 [facility] 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: Result Comment: The validity of the calculated GFR GFRAA in patients over 70 years has not been determined. Clinical correlation is essential. Performed By: #### L 500.3600 ####[facility] [address] [place], [address] EST GFR - AA 33 mL/min Low >60 [facility] 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: Result Comment: Afri can Cuban GFR Calc Performed By: #### L 500.3600 ####[facility] [address] [place], [address] GFR/1.73 sq M.predicted among non-blacks MDRD (S/P/Bld) [Vol rate/Area] 27 mL/min/{1.73_m2} Low >60 [facility] 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: Result Comment: Non- GFR Calc Performed By: #### L 500.3600 ####[facility] [address] [place], [address] Glucose [Mass/Vol] 111 mg/dL High 74-106 [facility] 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: Result Comment: Fast ing Glucose result from 100 to 125 mg/dL suggests IMPAIRED HOMEOSTASIS per A.D.A. criteria. Performed By: #### L 500.3600 ####[facility] [address] [place], [address] Phosphate [Mass/Vol] 2.9 mg/dL Normal 2.5-4.9 [facility] 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: Performed By: #### L 500.3600 ####[facility] [address] [place], [address] Potassium [Moles/Vol] 4.5 mmol/L Normal 3.5-5.1 [facility] 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: Performed By: #### L 500.3600 ####[facility] [address] [place], [address] Sodium [Moles/Vol] 144 mmol/L Normal 136-145 [facility] 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: Performed By: #### L 500.3600 ####[facility] [address] [place], [address] Urea nitrogen [Mass/Vol] 35 mg/dL High 7-18 [facility] 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: Performed By: #### L 500.3600 ####[facility] [address] [place], [address] CNOVon 08-06-2024 CNOV Office Visit (ANNETTE DUDLEY) -------- CAL MITCHELL ([id number]) 1945 Date Time Provider Department 08/06/24 1:00 PM LAURA IRAHETA AGVASACC During your visit today, we recorded the following information about you: Pulse Blood pressure Weight Height 61/minute 128/68 108.9 kg 1.778 m Laura Iraheta MD 08/06/2024 5:14 PM Signed [facility] DEPARTMENT OF VASCULAR SURGERY OUTPATIENT VISIT DATE August 06, 2024 OUTPATIENT VISIT TYPE CONSULTATION SERVICE DATE: 08/06/2024 SERVICE TIME: 4:41 PM PRIMARY CARE PHYSICIAN: Guanakito Reno MD REFERRING PROVIDER: No referring provider defined for this encounter. Consult requested for an opinion regarding the evaluation and treatment of the above. My final impression and recommendations will be communicated back to the requesting physician by way of the shared medical record or letter via [place] mail. CHIEF COMPLAINT: Carotid Stenosis HISTORY OF PRESENT ILLNESS: Vascular consultation at the request of . A copy of this consultation note will be provided to the requesting physician by way of shared Medical record or letter to requesting physician via US mail. Mr. Mitchell is a 79 year old male who is seen today for carotid stenosis. Mr. Mitchell was evaluated in the valve clinic and underwent a carotid US as part of his workup. Of note, he previously had a R CEA. Unclear when this surgery was performed. Denied history of stroke or TIA. He has some baseline dementia and is present with a family member. He was determined to not be a good candidate for TAVR due to comorbidities. PAST MEDICAL HISTORY Diagnosis Date Actinic keratosis 10/2004 Aortic valve stenosis BPH (benign prostatic hyperplasia) Carotid artery stenosis Chronic airway obstruction, not elsewhere classified 10/2004 Diabetes (HCC) Diverticulosis of colon (without mention of hemorrhage) Ectatic thoracic aorta (HCC) 06/07/2018 06/07/18 Chest CTA: There is atherosclerotic calcification of the thoracic aorta with mild fusiform ectasia of the descending component measuring 3.2 x 3.1 cm Essential hypertension Hyperlipidemia Impacted cerumen 10/2004 Obesity, unspecified 11/2003 Other and unspecified hyperlipidemia 10/2003 Other symptoms involving cardiovascular system 10/2004 Peripheral vascular disease, unspecified (HCC) 10/2004 R carotid Unspecified essential hypertension 04/2004 PAST SURGICAL HISTORY Procedure Laterality Date ARTL CATHJ/CANNULJ MNTR/TRANSFUSION SPX PRQ 7-3-14 COLONOSCOPY FLX DX W/COLLJ SPEC WHEN PFRMD 40 years ago Colonoscopy COLONOSCOPY FLX DX W/COLLJ SPEC WHEN PFRMD 03/02/11 DSTRJ LESION PENIS SIMPLE CHEMICAL 10/20 PAST SURGICAL HISTORY OF Skin tag removals - bilateral axillary REMOVAL IMPACTED CERUMEN INSTRUMENTATION UNILAT 10/20 TEAEC W/PATCH GRF CAROTID VERTB SUBCLAV NECK INC 04-17-14 RIGHT SOCIAL HISTORY: Social History Tobacco Use Smoking status: Former Current packs/day: 0.00 Average packs/day: 2.0 packs/day for 10.0 years (20.0 ttl pk-yrs) Types: Cigarettes Start date: 12/05/1975 Quit date: 12/05/1985 Years since quittin.6 Smokeless tobacco: Never Vaping Use Vaping status: Never Used Substance Use Topics Alcohol use: No Comment: none now; social in past Drug use: No FAMILY HISTORY Problem Relation Age of Onset Heart Mother of CHF Stroke Maternal Grandfather MEDICATIONS: iv contrast (will be provided with radiology test) CTA ABD/PEL - No IV access, insert saline lock prior to the sedation, infusion, injection for imaging exam. Discontinue saline lock post exam. If Pt. has a central line or IVAD, may access for administration according to line specific nursing protocol. Once exam is complete flush line and de-access according to line specific nursing protocol in the CT contrast administration guidelines link. enoxaparin (LOVENOX) 100 mg/mL syrg Inject 1 mL subcutaneously once daily. Inject entire contents of one(1) syringe atorvastatin (LIPITOR) 80 mg tablet Take 1 tablet by mouth daily at bedtime. For cholesterol. escitalopram oxalate (LEXAPRO) 10 mg tablet Take 1 tablet by mouth once daily. finasteride (PROSCAR) 5 mg tablet Take 1 tablet by mouth once daily. lisinopril (ZESTRIL) 20 mg tablet Take 1 tablet by mouth once daily. metoprolol succinate ER (TOPROL XL) 50 mg 24 hr tablet Take 1 tablet by mouth once daily. clopidogrel (PLAVIX) 75 mg tablet Take 1 tablet by mouth once daily. warfarin (COUMADIN) 5 mg tablet 7.5 mg on Monday, 5 mg all other days or as directed memantine (NAMENDA) 10 mg tablet Take 1 tablet by mouth once daily. nitroglycerin sublingual (NITROQUICK) 0.4 mg SL tablet Dissolve 1 tablet under the tongue as needed. for chest pain,every 5 min x3 acetaminophen (TYLENOL) 500 mg tablet Take 500 mg by mouth every 8 hours as needed. (Patient no (more content not included)... Normal [facility] ([facility] ) -------- PAULACAL KRAUS ([id number]) 1945 M Date Time Provider Department 07/30/24 JOSSELYN MAYER During your visit today, we recorded the following information about you: Josselyn Mayer APRN.CNP 07/30/2024 10:44 AM Signed Attempted to contact patient and his family to update him on the treatment plan. Left voicemail requesting phone call back. QUIQUE Chapa Stacey, RN 07/31/2024 3:54 PM Signed Gustavo calls requesting a return call at [phone]. BENJIE Batres Nichole L, APRN.CNP 08/01/2024 9:58 AM Signed I spoke with Gustavo and communicated recommendations of medical therapy. He reports patient also expressed wanting to continue without any further intervention. Patient and family agreeable to plan. Josselyn Mayer APRN.CNP Allergies As of Date: 07/30/2024 (No Known Allergies) Date Reviewed: 07/23/2024 Reviewed by: Dorothy Ray, BENJIE - Fully Assessed Reason for Visit: Switch Coupler - Other [[id number]] Prescriptions as of 08/01/2024 - iv contrast (will be provided with radiology test) CTA ABD/PEL - No IV access, insert saline lock prior to the sedation, infusion, injection for imaging exam. Discontinue saline lock post exam. If Pt. has a central line or IVAD, may access for administration according to line specific nursing protocol. Once exam is complete flush line and de-access according to line specific nursing protocol in the CT contrast administration guidelines link. - enoxaparin (LOVENOX) 100 mg/mL syrg Inject 1 mL subcutaneously once daily. Inject entire contents of one(1) syringe - atorvastatin (LIPITOR) 80 mg tablet Take 1 tablet by mouth daily at bedtime. For cholesterol. - escitalopram oxalate (LEXAPRO) 10 mg tablet Take 1 tablet by mouth once daily. - finasteride (PROSCAR) 5 mg tablet Take 1 tablet by mouth once daily. - lisinopril (ZESTRIL) 20 mg tablet Take 1 tablet by mouth once daily. - metoprolol succinate ER (TOPROL XL) 50 mg 24 hr tablet Take 1 tablet by mouth once daily. - clopidogrel (PLAVIX) 75 mg tablet Take 1 tablet by mouth once daily. - warfarin (COUMADIN) 5 mg tablet 7.5 mg on Monday, 5 mg all other days or as directed - memantine (NAMENDA) 10 mg tablet Take 1 tablet by mouth once daily. - nitroglycerin sublingual (NITROQUICK) 0.4 mg SL tablet Dissolve 1 tablet under the tongue as needed. for chest pain,every 5 min x3 - acetaminophen (TYLENOL) 500 mg tablet Take 500 mg by mouth every 8 hours as needed. - blood sugar diagnostic (ONETOUCH ULTRA TEST) test strip Test blood sugar(s) one times daily. Dx: 250.00. Insulin: No - Lancets (ONE TOUCH DELICA) [facility] lancets Test blood sugar(s) one time daily. Dx: 250.00. Insulin: No Problem List As Of Date 07/30/2024 Noted Resolved Hyperlipidemia, mixed [E78.2] Essential hypertension [I10] Peripheral arterial disease (HCC) [I73.9] Other symptoms involving cardiovascular system * 07/20/2016 ACTINIC KERATOSIS [L57.0] 10/12/2005 IMPACTED CERUMEN [H61.20] 10/12/2005 COPD (chronic obstructive pulmonary disease) (H* 01/29/2020 Obesity, unspecified [E66.9] 07/12/2024 Dysmetabolic Syndrome X [E88.810] 06/24/2005 11/27/2009 OTHER ABNORMAL GLUCOSE [R73.09] 10/12/2005 10/02/2006 PAIN IN LIMB [M79.609] 02/15/2008 04/22/2009 Type 2 diabetes mellitus with stage 3 chronic k*11/27/2009 Pain in joint, shoulder region [M25.519] 12/07/2009 01/29/2020 SK (seborrheic keratosis) [L82.1] 01/26/2011 01/29/2020 AK (actinic keratosis) [L57.0] 01/26/2011 01/29/2020 Skin tags 01/26/2011 03/29/2011 Cutaneous skin tags [L91.8] 03/29/2011 05/24/2018 Occlusion and stenosis of unspecified carotid a*10/25/2013 03/26/2024 Frequency [XMI0844] 02/11/2016 03/26/2024 BPH (benign prostatic hypertrophy) with urinary*02/11/2016 Adhesive capsulitis of right shoulder [M75.01] 05/15/2018 Aortic stenosis [I35.0] 05/24/2018 CKD (chronic kidney disease) stage 3, GFR 30-59*05/24/2018 03/26/2024 Lung nodule [R91.1] 06/07/2018 Ectatic thoracic aorta (HCC) [I77.810] 06/07/2018 Paroxysmal atrial fibrillation (HCC) [I48.0] 03/05/2019 Inflamed seborrheic keratosis [L82.0] 03/14/2019 08/14/2023 Neoplasm of uncertain behavior of skin [D48.5] 03/14/2019 08/14/2023 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, 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, F02.80] 12/10/2019 Hypertensive kidney disease with stage 3 chroni*01/29/2020 [facility] (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 [Z79.*02/04/2020 Dementia, vascular, mixed, with behavioral dist*08/26/2020 08/14/2023 Obesity, Class II, BMI 35-39.9 [E66.812] 08/15/2022 Aortic valve disorder [I35.9] 08/15/2022 Abnormal electrocardiography [R94.31] 08/14/2023 Diagnosed: 08/14/2023 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] 08/14/2023 Diagnosed: 08/14/2023 History of carotid endarterectomy [Z98.890] 04/17/2014 Diagnosed: 08/14/2023 Chronic renal disease, stage IV (H (more content not included)... Normal [facility] CNTRTMon [facility]30[facility] -------- PAULACAL KRAUS ([id number]) 1945 M Date Time Provider Department 07/30/24 JOSSELYN MAYER During your visit today, we recorded the following information about you: Josselyn Mayer APRN.CNP 07/30/2024 10:47 AM Signed MULTI DISCIPLINARY HIGH RISK AVR CARDIAC TEAM Members present: Dr. Malcolm, Dr. Thacker, Dr. Norman, Dr. Escalera, Gian Boyd APRN, CNP, Frank Piña CNP, ALEJANDRA Ma., ALEJANDRA Rice, Niels Cardoza CNP, Tj Lambert CNP, Frank Mello CNP Presenting Physician: see members listed above PATIENT NAME:Cal Mitchell DATE: 07/30/2024 Outcome: Cal Mitchell history and imaging were reviewed by the physicians in attendance. Patient has CKD, dementia, severe coronary artery disease, and severe aortic valve stenosis. Patient and family have also communicated they would likely prefer no further intervention. The collaborative recommendation would be to proceed with medical therapy. These recommendations will be communicated to the patient by our office. Josselyn Mayer APRN.CNP 07/30/2024 Allergies As of Date: 07/30/2024 (No Known Allergies) Date Reviewed: 07/23/2024 Reviewed by: Dorothy Ray, RN - Fully Assessed Prescriptions as of 07/30/2024 - iv contrast (will be provided with radiology test) CTA ABD/PEL - No IV access, insert saline lock prior to the sedation, infusion, injection for imaging exam. Discontinue saline lock post exam. If Pt. has a central line or IVAD, may access for administration according to line specific nursing protocol. Once exam is complete flush line and de-access according to line specific nursing protocol in the CT contrast administration guidelines link. - enoxaparin (LOVENOX) 100 mg/mL syrg Inject 1 mL subcutaneously once daily. Inject entire contents of one(1) syringe - atorvastatin (LIPITOR) 80 mg tablet Take 1 tablet by mouth daily at bedtime. For cholesterol. - escitalopram oxalate (LEXAPRO) 10 mg tablet Take 1 tablet by mouth once daily. - finasteride (PROSCAR) 5 mg tablet Take 1 tablet by mouth once daily. - lisinopril (ZESTRIL) 20 mg tablet Take 1 tablet by mouth once daily. - metoprolol succinate ER (TOPROL XL) 50 mg 24 hr tablet Take 1 tablet by mouth once daily. - clopidogrel (PLAVIX) 75 mg tablet Take 1 tablet by mouth once daily. - warfarin (COUMADIN) 5 mg tablet 7.5 mg on Monday, 5 mg all other days or as directed - memantine (NAMENDA) 10 mg tablet Take 1 tablet by mouth once daily. - nitroglycerin sublingual (NITROQUICK) 0.4 mg SL tablet Dissolve 1 tablet under the tongue as needed. for chest pain,every 5 min x3 - acetaminophen (TYLENOL) 500 mg tablet Take 500 mg by mouth every 8 hours as needed. - blood sugar diagnostic (ONETOUCH ULTRA TEST) test strip Test blood sugar(s) one times daily. Dx: 250.00. Insulin: No - Lancets (ONE TOUCH DELICA) [facility] lancets Test blood sugar(s) one time daily. Dx: 250.00. Insulin: No Problem List As Of Date 07/30/2024 Noted Resolved Hyperlipidemia, mixed [E78.2] Essential hypertension [I10] Peripheral arterial disease (HCC) [I73.9] Other symptoms involving cardiovascular system * 07/20/2016 ACTINIC KERATOSIS [L57.0] 10/12/2005 IMPACTED CERUMEN [H61.20] 10/12/2005 COPD (chronic obstructive pulmonary disease) (H* 01/29/2020 Obesity, unspecified [E66.9] 07/12/2024 Dysmetabolic Syndrome X [E88.810] 06/24/2005 11/27/2009 OTHER ABNORMAL GLUCOSE [R73.09] 10/12/2005 10/02/2006 PAIN IN LIMB [M79.609] 02/15/2008 04/22/2009 Type 2 diabetes mellitus with stage 3 chronic k*11/27/2009 Pain in joint, shoulder region [M25.519] 12/07/2009 01/29/2020 SK (seborrheic keratosis) [L82.1] 01/26/2011 01/29/2020 AK (actinic keratosis) [L57.0] 01/26/2011 01/29/2020 Skin tags 01/26/2011 03/29/2011 Cutaneous skin tags [L91.8] 03/29/2011 05/24/2018 Occlusion and stenosis of unspecified carotid a*10/25/2013 03/26/2024 Frequency [IGK1970] 02/11/2016 03/26/2024 BPH (benign prostatic hypertrophy) with urinary*02/11/2016 Adhesive capsulitis of right shoulder [M75.01] 05/15/2018 Aortic stenosis [I35.0] 05/24/2018 CKD (chronic kidney disease) stage 3, GFR 30-59*05/24/2018 03/26/2024 Lung nodule [R91.1] 06/07/2018 Ectatic thoracic aorta (HCC) [I77.810] 06/07/2018 Paroxysmal atrial fibrillation (HCC) [I48.0] 03/05/2019 Inflamed seborrheic keratosis [L82.0] 03/14/2019 08/14/2023 Neoplasm of uncertain behavior of skin [D48.5] 03/14/2019 08/14/2023 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 Normal [facility] Molly 07-25-2024 CNPN Telephone (PHAMTE) -------- PAULACAL Chanell ([id number]) 1945 M Date Time Provider Department 07/25/24 JIMMY CARRIZALES PHATXDori During your visit today, we recorded the following information about you: Jimmy Carrizales [facility] 07/25/2024 11:50 AM Signed Left voice message asking patient at [phone] (home) or daughter January to call the Anticoagulation Clinic at [phone] re: patient recenly off warfarin for heart cath on 07/23/24. Patient was prescribed Lovenox 100 mg sq Once daily by cardiology. Next Action for Anti coag Management: TM Remote Jimmy Carrizales PharmD., Kamran Jacobo [facility] 07/26/2024 4:30 PM Signed Called and left voice message for daughter January asking her to return call to Pharmacy Anticoagulation Clinic to discuss if Lovenox was started for patient. Josselyn Mayer, ÁLVARO.Chely Cho, RNYest (2:01 PM) I sent 8 syringes to the pharmacy. I think that should be enough to hold him over since he should only need 3 injections prior, but happy to send more if he takes longer than 5 days to be therapeutic s/p cath. As tomorrow would be day 5 post procedure, will send MYC message as well asking patient to test INR. Kamran Ayon PharmD, Kamran Romero RP 07/27/2024 4:00 PM Signed Called daughter again to discuss if Lovenox was started for the patient after heart cath. No answer. Left message to return call to Pharmacy Anticoagulation Clinic. If no call back or INR by Monday, consider starting the discharge process. Kamran Ayon PharmD, BCPS Alejandro Molina, [facility] 07/29/2024 5:32 PM Signed Called daughter - no answer. Left voicemail instructing patient to test INR via home meter as soon as possible, and/or call us to provide update re: use of Lovenox. Twin Cole, [facility] 07/30/2024 10:18 AM Signed Called daughter. Left VM to call PAC at [phone]. Please check INR with home meter. Is patient on Lovenox? Ruthie Cuevas, [facility] 07/31/2024 3:51 PM Signed Called and LM for January. Called pts son-in-law at pts home. He d/c warfarin on 07/19. He used lovenox on 07/20, 07/21, 07/22. He said they didn't know to restart lovenox after the cath on 07/23. He took warfarin 5mg yesterday - 07/24. He said he was also told to take q12h lovenox but was prescribed with qday. He tested while we were on the phone. Pt's INR was 2.1. Asked I'm to report that to [employer]. Advised him to continue 5mg daily and retest in 2 weeks. Ruthie Cuevas PharmD, CACP [facility] 08/14/2024 11:55 AM Signed Patient was due to test INR today will continue to monitor for results. Orville Ahn [facility] 08/21/2024 11:30 AM Signed Cal Mitchell was called and reminded to test INR today or as soon as possible. [employer] for pt's home number - January Quintanilla. Ruthie Cuevas PharmD Allergies As of Date: 07/25/2024 (No Known Allergies) Date Reviewed: 07/23/2024 Reviewed by: Dorothy Ray, BENJIE - Fully Assessed Reason for Visit: Anticoagulation [8] Cmt: Patient update Primary Visit Diagnosis:[facility] (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 [Z79.01] Other Visit Diagnosis:Paroxysmal atrial fibrillation (HCC) [I48.0] Prescriptions as of 08/21/2024 - iv contrast (will be provided with radiology test) CTA ABD/PEL - No IV access, insert saline lock prior to the sedation, infusion, injection for imaging exam. Discontinue saline lock post exam. If Pt. has a central line or IVAD, may access for administration according to line specific nursing protocol. Once exam is complete flush line and de-access according to line specific nursing protocol in the CT contrast administration guidelines link. - enoxaparin (LOVENOX) 100 mg/mL syrg Inject 1 mL subcutaneously once daily. Inject entire contents of one(1) syringe - atorvastatin (LIPITOR) 80 mg tablet Take 1 tablet by mouth daily at bedtime. For cholesterol. - escitalopram oxalate (LEXAPRO) 10 mg tablet Take 1 tablet by mouth once daily. - finasteride (PROSCAR) 5 mg tablet Take 1 tablet by mouth once daily. - lisinopril (ZESTRIL) 20 mg tablet Take 1 tablet by mouth once daily. - metoprolol succinate ER (TOPROL XL) 50 mg 24 hr tablet Take 1 tablet by mouth once daily. - clopidogrel (PLAVIX) 75 mg tablet Take 1 tablet by mouth once daily. - warfarin (COUMADIN) 5 mg tablet 7.5 mg on Monday, 5 mg all other days or as directed - memantine (NAMENDA) 10 mg tablet Take 1 tablet by mouth once daily. - nitroglycerin sublingual (NITROQUICK) 0.4 mg SL tablet Dissolve 1 tablet under the tongue as needed. for chest pain,every 5 min x3 - acetaminophen (TYLENOL) 500 mg tablet Take 500 mg by mouth every 8 hours as needed. - blood sugar diagnostic (ONETOUCH ULTRA TEST) test strip Test blood sugar(s) one times daily. Dx: 250.00. Insulin: No - Lancets (ONE TOUCH DELICA) [facility] lancets Test blood sugar(s) one time daily. Dx: 250.00. Ins (more content not included)... Normal [facility] CATH DIAGNOSTICon 07-23 CARD CATH DIAGNOSTIC Site Id: [facility] Lab #: DEFAULT Study Date: 07/23/2024 Start Time: End Time: Name Duty Pam Reddy MD PROC MD 1 Chayo Riley RT PROC SCRUB 1 Dorothy Huerta RN PROC CIRC 1 Magdalena Ken RN PROC RECORD 1 + + PATIENT INFORMATION + + Name: MR. CAL MITCHELL : 1945 Age: 79 years Gender: Height: 70 in / 178 cm Weight: 240.21 lb / 108.96 kg BMI: 34.47 kg/m BSA: 2.26 m + -----+ CLINICAL HISTORY/INDICATIONS + -----+ Dyspnea and Abnormal ECG. Procedural Status: Elective CAD Presentation: Symptoms Unlikely to be Ischemic Angina Classification (within 2 weeks): No Angina No Heart Failure Clinical History: 79 years old with severe aortic stenosis for coronary angiography. + + DIAGNOSTIC FINDINGS + + Coronary Anatomy: Right Dominant Injection Site(s): Coronary Artery LMT: _ The LMT is normal. LAD: _ The LAD has severe diffuse disease. _ The mid LAD is narrowed 90 % - severe diffuse disease. LCX: _ The Circumflex has mild diffuse disease. RAMUS: _ Ramus Status: Not Applicable. RCA: _ The RCA has mild diffuse disease. _ The proximal RCA - mild diffuse disease. _ The mid RCA - mild diffuse disease. + + IMPRESSION/PLAN + + Impression:1. Known Severe aortic stenosis. 2. Severe mid segment LAD lesion. 3. Mild RCA disease. 4. Normal Right heart hemodynamic. Recommended Treatment: Medical Therapy and Valve repair / replacement. Plan: AVR/CABG vs TAVR. + + HEMODYNAMICS - XPER + + + +------ +-----+-------+-----+--- ---+------+ Measurement Name Geni Blackburn Grey Mean A Wave V Wave + +------ +-----+-------+-----+--- ---+------+ AO 156.00 62.00 95.00 + +------ +-----+-------+-----+--- ---+------+ AO 140.00 62.00 93.00 + +------ +-----+-------+-----+--- ---+------+ AO 135.00 66.00 94.00 + +------ +-----+-------+-----+--- ---+------+ AO 145.00 63.00 94.00 + +------ +-----+-------+-----+--- ---+------+ RA 10.00 14.00 12.00 + +------ +-----+-------+-----+--- ---+------+ RV 37.00 2.00 10.00 + +------ +-----+-------+-----+--- ---+------+ PA 36.00 10.00 21.00 + +------ +-----+-------+-----+--- ---+------+ PW 19.00 21.00 26.00 + +------ +-----+-------+-----+--- ---+------+ Oximetry: + +-- --+ +-----+- --+-----+ Time Site O2 Saturation O2 PO2 HB + +-- --+ +-----+- --+-----+ 07/23/2024 9:41:26 AM AO 94.00 13.17 10.30 + +-- --+ +-----+- --+-----+ 07/23/2024 9:41:26 AM RA 69.00 9.67 10.30 + +-- --+ +-----+- --+-----+ 07/23/2024 9:41:26 AM AO 94.00 13.17 10.30 + +-- --+ +-----+- --+-----+ 07/23/2024 9:41:26 AM PA 69.00 9.67 10.30 + +-- --+ +-----+- --+-----+ Cardiac Outputs: +--------+------+ FLORENCIO SV 147.70 +--------+------+ FLORENCIO CO 8.57 +--------+------+ FLORENCIO CI 3.80 +--------+------+ FLORENCIO HR +--------+------+ MAN CO +--------+------+ MAN CI +--------+------+ TD SV 95.60 +--------+------+ TD CO 5.55 +--------+------+ TD CI 2.46 +--------+------+ ANGIO SV +--------+------+ ANGIO CO +--------+------+ ANGIO CI +--------+------+ + + ADVERSE OUTCOME(s)/COMPLICATION( s) + + None + -------+ PROCEDURAL & TECHNICAL DETAILS + -------+ Date Time Description 07/23/2024 12:00:00 AM Left Heart Cath 07/23/2024 12:00:00 AM Right Heart Cath *MEDICAL HISTORY* CAD Presentation: Symptoms Unlikely to be Ischemic Angina Classification (within 2 weeks): No Angina No Heart Failure Family History of CAD: Yes Congenital Heart Disease: No Coronary Artery Disease: No Dyslipidemia: Yes Hypertension: Yes Myocarditis: No Pericarditis: No Syncope: No Arrhythmia: AFIB Diabetes Mellitus: No Chronic Lung Disease: No Home Oxygen: No Hostile Chest: No Immunocompromised: No Myocardial Infarction: No Creatinine > 2: No Dialysis: Currently not on dialysis Left Ventricle EF: EF Not Relevent to Current Presentation. LVEF at Discharge: *HISTORY OF ARTERIAL DISEASE* Peripheral Arterial Disease: No Cerebrovascular Disease: No TIA: No Stroke: No Carotid ASO: No Vertebral ASO: No Procedure Details: Blood Loss: < 30ml Specimen: No Specimen Obtained Recent PCI Chuck (more content not included)... Normal [facility] CTA ABD/PELV W IVCONon 07-23 CTA ABD/PELV W IVCON * * *Final Report* * * DATE OF EXAM: Jul 23 2024 9:29AM [facility] 0311 - CTA ABD/PELV W IVCON / PROCEDURE REASON: multiple diagnoses * * * * Physician Interpretation * * * * CTA Aorta - Chest, Abdomen, and Pelvis: 07/23/2024 9:29 AM. Comparison: CT of the abdomen and pelvis dated June 07, [address] of the chest dated April 20, 2020.. Clinical History: 79 years old Male with high-risk aortic valve disease, currently being evaluated for further treatment options. Indication: There is clinical need to define anatomy of the aortic root/annulus as well as the aorta/ileofemoral vessels. Technique: Multi-detector CT technology was employed (Siemens Definition Flash dual source scanner). Helical retrospectively gated scanning was performed of the chest, limited to the aortic root for 3-D and dynamic 4-D assessment, following the IV administration of contrast material. Subsequently, non-gated spiral imaging with high-pitch acquisition ("Flash-mode") (3 mm slice reconstruction) of the chest, abdomen, and pelvis was performed without additional IV administration of contrast material. IV: 70 ml of Omnipaque 350 CT Radiation dose: Integrated Dose-length product (DLP) for this visit = 2754 mGy*cm. CT Dose Reduction Employed: Automated exposure control (AEC) and iterative reconstruction was used. For optimization of anatomic evaluation, multiplanar reconstruction, maximum intensity projections, and advanced 3-D offline post-processing were performed on a dedicated stand-alone workstation under the direct supervision of the interpreting physician. RESULT: Potential study limitations: None. CHEST: The visualized lung segments are largely clear. There are a few punctate lung nodules which have not changed significantly in appearance, including a few small granulomatous calcifications. There is mild scarring in the lower lung rhodes. There is no infiltrate or effusion. No suspicious lung nodule is noted. No thoracic lymphadenopathy is noted. Visualized lower neck structures appear within normal limits. Chest wall structures are intact with degenerative changes in the visualized portions of spine. Degenerative changes are also noted in the right shoulder, partially visualized. The cardiac chambers have normal atrioventricular and ventriculoarterial concordance, and systemic and pulmonary venous return. The cardiac chamber sizes are notable for mild biventricular dilatation. The coronary arteries have normal origins and courses. There are moderate to severe coronary calcifications identified, though this study was not optimized for coronary artery evaluation. The left ventricle is normal in size and shape, . There is moderate left ventricular hypertrophy: basal anteroseptum (1.4 cm), and basal inferoseptum (1.1 cm). VASCULAR WITH ADVANCED 3-D OFFLINE POST-PROCESSING: Dedicated 4-D dynamic imaging of the aortic root: The aortic valve is trileaflet. The leaflets are severely calcified. The aortic valve calcium score is calculated at 2280 Agatston units. The aortic root is mildly ectatic, and is moderately calcified. The sinotubular junction is preserved. Aortic valve orifice area = 0.8 cm2 Aortic annulus diameter: 3.0 x 2.3 cm, mean diameter 2.6 cm Aortic annulus circumference: 8.3 cm Aortic annulus cross-sectional area: 519 mm2 Coronary Sinus measurements: a. Noncoronary sinus 3.4 cm b. Right coronary sinus 3.4 cm c. Left coronary sinus 3.5 cm Coronary heights: a. Annulus-RCA distance: 1.7 cm b. Annulus-LM distance: 1.6 cm Annulus angulations: MARSHALLESE 10 cranial 0 The ascending thoracic aorta and aortic arch is normal in course, caliber, and contour. The arch vessel branching pattern . The imaged arch branch vessels are patent proximally. The descending thoracic aorta is normal in course, caliber, and contour. The abdomina aorta is normal in course, caliber, and contour. The celiac artery, SMA, and TAZ are patent. The bilateral single renal arteries are patent. The pelvic arteries are tortuous, but otherwise normal in caliber, and contour. The common femoral and superficial femoral arteries are normal in caliber, and contour. The minimal luminal caliber throughout = 0.8 cm. There is no acute aortic pathology, such as dissection, intramural hematoma, or contained rupture. [employer] Bl[employer] dimensions of the thoracic aorta are as follows: 3.8 cm at the sinuses of Valsalva (measured [id number]) 3.0 cm at the sinotubular junction. 3.5 cm in the mid-ascending aorta 3.2 cm at the distal ascending aorta 3.2 cm at the mid-transverse arch 3.3 cm at the proximal descending thoracic aorta 2.9 cm at the diaphragmatic hiatus [employer] Blasting dimensions of the abdominal aorta are as follows: 2.7 cm at the supra-mesenteric segment 2.5 cm at the mesenteric segment 2.3 cm at the renal segment 2.0 cm at the infrarenal segment 1.9 cm at the aortic bi (more content not included)... Normal [facility] CTA CHEST (GATED) WO/W IVCON on 07-23-2024 CTA CHEST (GATED) WO/W IVCON * * *Final Report* * * DATE OF EXAM: Jul 23 2024 9:29AM [facility] 0126 - CTA CHEST (GATED) WO/W IVCON / PROCEDURE REASON: multiple diagnoses * * * * Physician Interpretation * * * * CTA Aorta - Chest, Abdomen, and Pelvis: 07/23/2024 9:29 AM. Comparison: CT of the abdomen and pelvis dated June 07, [address] of the chest dated April 20, 2020.. Clinical History: 79 years old Male with high-risk aortic valve disease, currently being evaluated for further treatment options. Indication: There is clinical need to define anatomy of the aortic root/annulus as well as the aorta/ileofemoral vessels. Technique: Multi-detector CT technology was employed (Siemens Definition Flash dual source scanner). Helical retrospectively gated scanning was performed of the chest, limited to the aortic root for 3-D and dynamic 4-D assessment, following the IV administration of contrast material. Subsequently, non-gated spiral imaging with high-pitch acquisition ("Flash-mode") (3 mm slice reconstruction) of the chest, abdomen, and pelvis was performed without additional IV administration of contrast material. IV: 70 ml of Omnipaque 350 CT Radiation dose: Integrated Dose-length product (DLP) for this visit = 2754 mGy*cm. CT Dose Reduction Employed: Automated exposure control (AEC) and iterative reconstruction was used. For optimization of anatomic evaluation, multiplanar reconstruction, maximum intensity projections, and advanced 3-D offline post-processing were performed on a dedicated stand-alone workstation under the direct supervision of the interpreting physician. RESULT: Potential study limitations: None. CHEST: The visualized lung segments are largely clear. There are a few punctate lung nodules which have not changed significantly in appearance, including a few small granulomatous calcifications. There is mild scarring in the lower lung rhodes. There is no infiltrate or effusion. No suspicious lung nodule is noted. No thoracic lymphadenopathy is noted. Visualized lower neck structures appear within normal limits. Chest wall structures are intact with degenerative changes in the visualized portions of spine. Degenerative changes are also noted in the right shoulder, partially visualized. The cardiac chambers have normal atrioventricular and ventriculoarterial concordance, and systemic and pulmonary venous return. The cardiac chamber sizes are notable for mild biventricular dilatation. The coronary arteries have normal origins and courses. There are moderate to severe coronary calcifications identified, though this study was not optimized for coronary artery evaluation. The left ventricle is normal in size and shape, . There is moderate left ventricular hypertrophy: basal anteroseptum (1.4 cm), and basal inferoseptum (1.1 cm). VASCULAR WITH ADVANCED 3-D OFFLINE POST-PROCESSING: Dedicated 4-D dynamic imaging of the aortic root: The aortic valve is trileaflet. The leaflets are severely calcified. The aortic valve calcium score is calculated at 2280 Agatston units. The aortic root is mildly ectatic, and is moderately calcified. The sinotubular junction is preserved. Aortic valve orifice area = 0.8 cm2 Aortic annulus diameter: 3.0 x 2.3 cm, mean diameter 2.6 cm Aortic annulus circumference: 8.3 cm Aortic annulus cross-sectional area: 519 mm2 Coronary Sinus measurements: a. Noncoronary sinus 3.4 cm b. Right coronary sinus 3.4 cm c. Left coronary sinus 3.5 cm Coronary heights: a. Annulus-RCA distance: 1.7 cm b. Annulus-LM distance: 1.6 cm Annulus angulations: MARSHALLESE 10 cranial 0 The ascending thoracic aorta and aortic arch is normal in course, caliber, and contour. The arch vessel branching pattern . The imaged arch branch vessels are patent proximally. The descending thoracic aorta is normal in course, caliber, and contour. The abdomina aorta is normal in course, caliber, and contour. The celiac artery, SMA, and TAZ are patent. The bilateral single renal arteries are patent. The pelvic arteries are tortuous, but otherwise normal in caliber, and contour. The common femoral and superficial femoral arteries are normal in caliber, and contour. The minimal luminal caliber throughout = 0.8 cm. There is no acute aortic pathology, such as dissection, intramural hematoma, or contained rupture. [employer] Blasting dimensions of the thoracic aorta are as follows: 3.8 cm at the sinuses of Valsalva (measured [id number]) 3.0 cm at the sinotubular junction. 3.5 cm in the mid-ascending aorta 3.2 cm at the distal ascending aorta 3.2 cm at the mid-transverse arch 3.3 cm at the proximal descending thoracic aorta 2.9 cm at the diaphragmatic hiatus [employer] Bl[employer] dimensions of the abdominal aorta are as follows: 2.7 cm at the supra-mesenteric segment 2.5 cm at the mesenteric segment 2.3 cm at the renal segment 2.0 cm at the infrarenal segment 1.9 cm at the a (more content not included)... Normal [facility] [facility] HISTORY PHYSICALon HISTORY PHYSICAL HNO ID: [id number] Author: PAM REDDY MD Service: Cardiovascular Surgery Author Type: Physician Type: H&P Filed: 07/23/2024 09:46 Note Text: UPDATED HANDP PRE-CARDIAC CATHETERIZATION SERVICE DATE: 07/23/2024 SERVICE TIME: 9:45 am PHYSICAL EXAM MUST BE COMPLETED ON ADMISSION The History and Physical (completed in the past 30 days) has been reviewed and the patient has been examined. The contents accurately reflect the patient's condition with the following additions or revisions since the HANDP was completed. Examination indicates no changes. Planned Procedure: Left Heart Cath + Possible PCI Primary Indication for Procedure: Valvular Heart Disease High Risk Features: History of Prior CABG: No History of Prior PCI: No Cardiomyopathy: No Anti-ischemic Meds in Past 2 Weeks: Beta blockers Ejection Fraction: 60% from Previous Echo Risk Appropriateness: Angina Class in Past 2 Weeks: Class III - Marked limitation of ordinary physical activity Cardiogenic Shock: NoHeart Failure: None Stress Test Performed: None EKG Assessment: Normal Family History of Premature CAD: Father, age 60 Evaluation for Preop Clearance: Cardiac Surgery, Functional Capacity; >= 4 METS with symptoms, Surgical Risk; Low HISTORY OF BLEEDING: No This HANDP can be found in the attached. SIGNATURE: Pam Reddy MD PATIENT NAME: Cal Mitchell DATE: July 23, 2024 TIME: 9:42 AM Normal [facility] PT panel Coag (PPP)on 2023 INR Coag (PPP) [Relative time] 1.5 {INR} High 0.9-1.3 [facility] 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: Order Comment: Speci men Type: BLOOD SPECIMENOrdering Facility: [facility] Address: [address] [place] [address] Result Comment: Valentina min K Antagonist (VKA) Therapeutic Range: INR 2 to 3 (Target INR of 2.5) Note: For patients treated with VKA drugs, such as warfarin, the [place] [employer] 2012 Guideline recommends a therapeutic INR range of 2 to 3 (target INR of 2.5). This recommendation includes high-risk patients with antiphospholipid syndrome with previous arterial or venous thromboembolism, current-generation mechanical or bioprosthetic aortic heart valve replacement. Note: Patients with mechanical aortic valve replacement and additional risk factors for thromboembolic events (atrial fibrillation, previous thromboembolism, LV dysfunction, hypercoagulable conditions) or an older generation mechanical AVR (i.e., ball in-Cage) or any mechanical MVR should have a INR therapeutic range of 2.5 to 3.5 (target INR of 3). Miguel RAND, et al. Chest 2012, 141:7S-47S Rosa PAGAN et al. [facility] 2017, 70: 252-289 Performed By: #### 3 4528-0 ####[facility] CAROLE JEAN BAPTISTE [id number] [place] [address] [place] PT Coag (PPP) [Time] 15.0 s High <13.1 [facility] 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: Order Comment: Speci men Type: BLOOD SPECIMENOrdering Facility: [facility] Address: [facility] [place] [id number] Performed By: #### 3 4528-0 ####[facility] CAROLE [facility] [id number] [place], [place] [id number] [place] [address] OF [place] CNPNon 07-15-2024 [facility] -------- CAL MITCHELL ([id number]) 1945 M Date Time Provider Department 07/15/24 GUANAKITO RENO [facility] During your visit today, we recorded the following information about you: Teresa Alexis RN 07/15/2024 2:25 PM Addendum Patient's son Gustavo calling to say patient is scheduled for cardiac cath on 07/23/24 but Nephrology appointment is not scheduled until 08/07/24. Dr. Reddy tells them he is aware of kidney issues and can give increased IV fluid during procedure to protect kidneys. They would like PCP recommendation before proceeding. BENJIE Voss William J, MD 07/15/2024 2:40 PM Signed Agree. As long as he is aware. Josselyn Barrow LPN 07/15/2024 3:20 PM Signed Notified Gustavo. Allergies As of Date: 07/15/2024 (No Known Allergies) Date Reviewed: 07/12/2024 Reviewed by: Carolina Abla MA - Fully Assessed Reason for Visit: Patient Update [1234] Prescriptions as of 07/15/2024 - iv contrast (will be provided with radiology test) CTA ABD/PEL - No IV access, insert saline lock prior to the sedation, infusion, injection for imaging exam. Discontinue saline lock post exam. If Pt. has a central line or IVAD, may access for administration according to line specific nursing protocol. Once exam is complete flush line and de-access according to line specific nursing protocol in the CT contrast administration guidelines link. - enoxaparin (LOVENOX) 100 mg/mL syrg Inject 1 mL subcutaneously once daily. Inject entire contents of one(1) syringe - atorvastatin (LIPITOR) 80 mg tablet Take 1 tablet by mouth daily at bedtime. For cholesterol. - escitalopram oxalate (LEXAPRO) 10 mg tablet Take 1 tablet by mouth once daily. - finasteride (PROSCAR) 5 mg tablet Take 1 tablet by mouth once daily. - lisinopril (ZESTRIL) 20 mg tablet Take 1 tablet by mouth once daily. - metoprolol succinate ER (TOPROL XL) 50 mg 24 hr tablet Take 1 tablet by mouth once daily. - clopidogrel (PLAVIX) 75 mg tablet Take 1 tablet by mouth once daily. - warfarin (COUMADIN) 5 mg tablet 7.5 mg on Monday, 5 mg all other days or as directed - memantine (NAMENDA) 10 mg tablet Take 1 tablet by mouth once daily. - nitroglycerin sublingual (NITROQUICK) 0.4 mg SL tablet Dissolve 1 tablet under the tongue as needed. for chest pain,every 5 min x3 - acetaminophen (TYLENOL) 500 mg tablet Take 500 mg by mouth every 8 hours as needed. - blood sugar diagnostic (ONETOUCH ULTRA TEST) test strip Test blood sugar(s) one times daily. Dx: 250.00. Insulin: No - Lancets (ONE TOUCH DELICA) [facility] lancets Test blood sugar(s) one time daily. Dx: 250.00. Insulin: No Problem List As Of Date 07/15/2024 Noted Resolved Hyperlipidemia, mixed [E78.2] Essential hypertension [I10] Peripheral arterial disease (HCC) [I73.9] Other symptoms involving cardiovascular system * 07/20/2016 ACTINIC KERATOSIS [L57.0] 10/12/2005 IMPACTED CERUMEN [H61.20] 10/12/2005 COPD (chronic obstructive pulmonary disease) (H* 01/29/2020 Obesity, unspecified [E66.9] 07/12/2024 Dysmetabolic Syndrome X [E88.810] 06/24/2005 11/27/2009 OTHER ABNORMAL GLUCOSE [R73.09] 10/12/2005 10/02/2006 PAIN IN LIMB [M79.609] 02/15/2008 04/22/2009 Type 2 diabetes mellitus with stage 3 chronic k*11/27/2009 Pain in joint, shoulder region [M25.519] 12/07/2009 01/29/2020 SK (seborrheic keratosis) [L82.1] 01/26/2011 01/29/2020 AK (actinic keratosis) [L57.0] 01/26/2011 01/29/2020 Skin tags 01/26/2011 03/29/2011 Cutaneous skin tags [L91.8] 03/29/2011 05/24/2018 Occlusion and stenosis of unspecified carotid a*10/25/2013 03/26/2024 Frequency [DHG4867] 02/11/2016 03/26/2024 BPH (benign prostatic hypertrophy) with urinary*02/11/2016 Adhesive capsulitis of right shoulder [M75.01] 05/15/2018 Aortic stenosis [I35.0] 05/24/2018 CKD (chronic kidney disease) stage 3, GFR 30-59*05/24/2018 03/26/2024 Lung nodule [R91.1] 06/07/2018 Ectatic thoracic aorta (HCC) [I77.810] 06/07/2018 Paroxysmal atrial fibrillation (HCC) [I48.0] 03/05/2019 Inflamed seborrheic keratosis [L82.0] 03/14/2019 08/14/2023 Neoplasm of uncertain behavior of skin [D48.5] 03/14/2019 08/14/2023 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, 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, F02.80] 12/10/2019 Hypertensive kidney disease with stage 3 chroni*01/29/2020 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 Normal [facility] Telephone (FAMWS) -------- CAL MITCHELL ([id number]) 1945 M Date Time Provider Department 07/15/24 GUANAKITO RENO [facility] During your visit today, we recorded the following information about you: Guanakito Reno MD 07/15/2024 1:05 PM Signed Kidney function and anemia are stable. See nephrology as we had recommended. Sugars are overall not bad. Hold on amaryl. Call sugars in two weeks to see how he does off of meds. Carolina Alba MA 07/15/2024 2:14 PM Signed Message left for return call. CHANCE Ramirez Krista, LPN 07/15/2024 3:16 PM Signed Son notified of results and provider message. Magdalena Laird LPN Allergies As of Date: 07/15/2024 (No Known Allergies) Date Reviewed: 07/12/2024 Reviewed by: Carolina Alba MA - Fully Assessed Reason for Visit: Results [95] Prescriptions as of 07/15/2024 - iv contrast (will be provided with radiology test) CTA ABD/PEL - No IV access, insert saline lock prior to the sedation, infusion, injection for imaging exam. Discontinue saline lock post exam. If Pt. has a central line or IVAD, may access for administration according to line specific nursing protocol. Once exam is complete flush line and de-access according to line specific nursing protocol in the CT contrast administration guidelines link. - enoxaparin (LOVENOX) 100 mg/mL syrg Inject 1 mL subcutaneously once daily. Inject entire contents of one(1) syringe - atorvastatin (LIPITOR) 80 mg tablet Take 1 tablet by mouth daily at bedtime. For cholesterol. - escitalopram oxalate (LEXAPRO) 10 mg tablet Take 1 tablet by mouth once daily. - finasteride (PROSCAR) 5 mg tablet Take 1 tablet by mouth once daily. - lisinopril (ZESTRIL) 20 mg tablet Take 1 tablet by mouth once daily. - metoprolol succinate ER (TOPROL XL) 50 mg 24 hr tablet Take 1 tablet by mouth once daily. - clopidogrel (PLAVIX) 75 mg tablet Take 1 tablet by mouth once daily. - warfarin (COUMADIN) 5 mg tablet 7.5 mg on Monday, 5 mg all other days or as directed - memantine (NAMENDA) 10 mg tablet Take 1 tablet by mouth once daily. - nitroglycerin sublingual (NITROQUICK) 0.4 mg SL tablet Dissolve 1 tablet under the tongue as needed. for chest pain,every 5 min x3 - acetaminophen (TYLENOL) 500 mg tablet Take 500 mg by mouth every 8 hours as needed. - blood sugar diagnostic (ONETOUCH ULTRA TEST) test strip Test blood sugar(s) one times daily. Dx: 250.00. Insulin: No - Lancets (ONE TOUCH DELICA) [facility] lancets Test blood sugar(s) one time daily. Dx: 250.00. Insulin: No Problem List As Of Date 07/15/2024 Noted Resolved Hyperlipidemia, mixed [E78.2] Essential hypertension [I10] Peripheral arterial disease (HCC) [I73.9] Other symptoms involving cardiovascular system * 07/20/2016 ACTINIC KERATOSIS [L57.0] 10/12/2005 IMPACTED CERUMEN [H61.20] 10/12/2005 COPD (chronic obstructive pulmonary disease) (H* 01/29/2020 Obesity, unspecified [E66.9] 07/12/2024 Dysmetabolic Syndrome X [E88.810] 06/24/2005 11/27/2009 OTHER ABNORMAL GLUCOSE [R73.09] 10/12/2005 10/02/2006 PAIN IN LIMB [M79.609] 02/15/2008 04/22/2009 Type 2 diabetes mellitus with stage 3 chronic k*11/27/2009 Pain in joint, shoulder region [M25.519] 12/07/2009 01/29/2020 SK (seborrheic keratosis) [L82.1] 01/26/2011 01/29/2020 AK (actinic keratosis) [L57.0] 01/26/2011 01/29/2020 Skin tags 01/26/2011 03/29/2011 Cutaneous skin tags [L91.8] 03/29/2011 05/24/2018 Occlusion and stenosis of unspecified carotid a*10/25/2013 03/26/2024 Frequency [MWX3685] 02/11/2016 03/26/2024 BPH (benign prostatic hypertrophy) with urinary*02/11/2016 Adhesive capsulitis of right shoulder [M75.01] 05/15/2018 Aortic stenosis [I35.0] 05/24/2018 CKD (chronic kidney disease) stage 3, GFR 30-59*05/24/2018 03/26/2024 Lung nodule [R91.1] 06/07/2018 Ectatic thoracic aorta (HCC) [I77.810] 06/07/2018 Paroxysmal atrial fibrillation (HCC) [I48.0] 03/05/2019 Inflamed seborrheic keratosis [L82.0] 03/14/2019 08/14/2023 Neoplasm of uncertain behavior of skin [D48.5] 03/14/2019 08/14/2023 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, 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, F02.80] 12/10/2019 Hypertensive kidney disease with stage 3 chroni*01/29/2020 [facility] (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 [Z79.*02/04/2020 Dementia, vascular, mixed, with behavioral dist*08/26/2020 08/14/2023 Obesity, Class II, BMI 35-39.9 [E66.9] 08/15/2022 Aortic valve disorder [I35.9] 08/15/2022 Abnormal electrocardiography [R94.31] 08/14/2023 Diagnosed: 08/14/2023 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4] 04/08/2024 Asymptomatic gallstones [K80.20] 05/03/2024 Medications Discontinued During This Encounter Prescriptions - glimepiride (AMARYL) 2 mg tablet (Discontinued) Take 1 tablet (more content not included)... Normal [facility] CBC W Auto Differential pane l (Bld)on 07-12-2024 Basophils (Bld) [#/Vol] 0.07 10*3/uL Normal <0.11 [facility] 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: Order Comment: Speci men Type: BLOOD SPECIMENOrdering Facility: [facility] Address: [address] [place] [address] Performed By: #### 5 7021-8 ####[facility] LABCLIA [id number] [place] [address] [place] Basophils/100 WBC (Bld) 1.1 % Normal [facility] 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: Order Comment: Speci men Type: BLOOD SPECIMENOrdering Facility: [facility] Address: [address] [place] [address] Performed By: #### 5 7021-8 ####[facility] LABCLIA [id number] [place] [address] [place] Differential cell count method Nom (Bld) Auto Normal [facility] 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: Order Comment: Speci men Type: BLOOD SPECIMENOrdering Facility: [facility] Address: [address] [place] [address] Performed By: #### 5 7021-8 ####[facility] LABCLIA [id number] [place] [address] [place] Eosinophils (Bld) [#/Vol] 0.40 10*3/uL Normal <0.46 [facility] 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: Order Comment: Speci men Type: BLOOD SPECIMENOrdering Facility: [facility] Address: [address] [place] [address] Performed By: #### 5 7021-8 ####[facility] LABCLIA [id number] [place] [address] [place] Eosinophils/100 WBC (Bld) 6.3 % Normal [facility] 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: Order Comment: Speci men Type: BLOOD SPECIMENOrdering Facility: [facility] Address: [address] [place] [address] Performed By: #### 5 7021-8 ####[facility] LABIA [id number] [place] [address] [place] Erythrocyte distribution width (RBC) [Ratio] 14.6 % Normal 11.5-15.0 [facility] 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: Order Comment: Speci men Type: BLOOD SPECIMENOrdering Facility: [facility] Address: [address] [place] [address] Performed By: #### 5 7021-8 ####[facility] LABCLIA [id number] [place] [address] [place] Hematocrit (Bld) [Volume fraction] 34.7 % Low 39.0-51.0 [facility] 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: Order Comment: Speci men Type: BLOOD SPECIMENOrdering Facility: [facility] Address: [address] [place] [address] Performed By: #### 5 7021-8 ####[facility] LABIA [id number] [place] [id number] [place] Hemoglobin (Bld) [Mass/Vol] 10.3 g/dL Low 13.0-17.0 [facility] 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: Order Comment: Speci men Type: BLOOD SPECIMENOrdering Facility: [facility] Address: [address] [place] [address] Performed By: #### 5 7021-8 ####[facility] LABCLIA [id number] [place] [address] [place] Immature granulocytes (Bld) [#/Vol] 0.03 10*3/uL Normal <0.10 [facility] 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: Order Comment: Speci men Type: BLOOD SPECIMENOrdering Facility: [facility] Address: [address] [place] [address] Performed By: #### 5 7021-8 ####[facility] LABCLIA [id number] [place] [address] [place] Immature granulocytes/100 WBC (Bld) 0.5 % Normal [facility] 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: Order Comment: Speci men Type: BLOOD SPECIMENOrdering Facility: [facility] Address: [address] [place] [address] Performed By: #### 5 7021-8 ####[facility] LABCLIA [id number] [place] [address] [place] Lymphocytes (Bld) [#/Vol] 1.30 10*3/uL Normal 1.00-4.00 [facility] 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: Order Comment: Speci men Type: BLOOD SPECIMENOrdering Facility: [facility] Address: [address] [place] [address] Performed By: #### 5 7021-8 ####[facility] LABIA [id number] [place] [address] [place] Lymphocytes/100 WBC (Bld) 20.3 % Normal [facility] 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: Order Comment: Speci men Type: BLOOD SPECIMENOrdering Facility: [facility] Address: [address] [place] [address] Performed By: #### 5 7021-8 ####[facility] LABCLIA [id number] [place] [address] [place] MCH (RBC) [Entitic mass] 30.5 pg Normal 26.0-34.0 [facility] 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: Order Comment: Speci men Type: BLOOD SPECIMENOrdering Facility: [facility] Address: [address] [place] [address] Performed By: #### 5 7021-8 ####[facility] LABCLIA [id number] [place] [address] [place] MCHC (RBC) [Mass/Vol] 29.7 g/dL Low 30.5-36.0 [facility] 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: Order Comment: Speci men Type: BLOOD SPECIMENOrdering Facility: [facility] Address: [address] [place] [address] Performed By: #### 5 7021-8 ####[facility] LABCLIA [id number] [place] [address] [place] MCV (RBC) [Entitic vol] 102.7 fL High 80.0-100.0 [facility] 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: Order Comment: Speci men Type: BLOOD SPECIMENOrdering Facility: [facility] Address: [address] [place] [address] Performed By: #### 5 7021-8 ####[facility] LABIA [id number] [place] [address] [place] Monocytes (Bld) [#/Vol] 0.60 10*3/uL Normal <0.87 [facility] 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: Order Comment: Speci men Type: BLOOD SPECIMENOrdering Facility: [facility] Address: [address] [place] [address] Performed By: #### 5 7021-8 ####[facility] LABCLIA [id number] [place] [address] [place] Monocytes/100 WBC (Bld) 9.4 % Normal [facility] 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: Order Comment: Speci men Type: BLOOD SPECIMENOrdering Facility: [facility] Address: [address] [place] [address] Performed By: #### 5 7021-8 ####[facility] LABCLIA [id number] [place] [address] [place] Neutrophils (Bld) [#/Vol] 4.00 10*3/uL Normal 1.45-7.50 [facility] 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: Order Comment: Speci men Type: BLOOD SPECIMENOrdering Facility: [facility] Address: [address] [place] [address] Performed By: #### 5 7021-8 ####[facility] LABCLIA [id number] [place] [address] [place] Neutrophils/100 WBC (Bld) 62.4 % Normal [facility] 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: Order Comment: Speci men Type: BLOOD SPECIMENOrdering Facility: [facility] Address: [address] [place] [address] Performed By: #### 5 7021-8 ####[facility] LABCLIA [id number] [place] [address] [place] Nucleated RBC (Bld) [#/Vol] 10*3/uL Normal <0.01 [facility] 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: Order Comment: Speci men Type: BLOOD SPECIMENOrdering Facility: [facility] Address: [address] [place] [address] Performed By: #### 5 7021-8 ####[facility] LABCLIA [id number] [place] [address] [place] Nucleated RBC/100 WBC (Bld) [Ratio] 0.0 /100 WBC Normal [facility] 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: Order Comment: Speci men Type: BLOOD SPECIMENOrdering Facility: [facility] Address: [address] [place] [address] Performed By: #### 5 7021-8 ####[facility] LABCLIA [id number] [place] [address] [place] Platelet mean volume (Bld) [Entitic vol] 10.5 fL Normal 9.0-12.7 [facility] 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: Order Comment: Speci men Type: BLOOD SPECIMENOrdering Facility: [facility] Address: [address] [place] [address] Performed By: #### 5 7021-8 ####[facility] LABIA [id number] [place] [address] [place] Platelets (Bld) [#/Vol] 190 10*3/uL Normal 150-400 [facility] 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: Order Comment: Speci men Type: BLOOD SPECIMENOrdering Facility: [facility] Address: [address] [place] [address] Performed By: #### 5 7021-8 ####[facility] LABIA [id number] [place] [address] [place] RBC (Bld) [#/Vol] 3.38 10*6/uL Low 4.20-6.00 [facility] 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: Order Comment: Speci men Type: BLOOD SPECIMENOrdering Facility: [facility] Address: [address] [place] [address] Performed By: #### 5 7021-8 ####[facility] LABIA [id number] [place] [address] [place] WBC (Bld) [#/Vol] 6.40 10*3/uL Normal 3.70-11.00 [facility] 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: Order Comment: Speci men Type: BLOOD SPECIMENOrdering Facility: [facility] Address: [address] [place] [address] Performed By: #### 5 7021-8 ####[facility] LABIA [id number] [place] [address] [place] CNOVon 07-12-2024 CNOV Office Visit (FAMPWS ) -------- CAL MITCHELL ([id number]) 1945 M Date Time Provider Department 07/12/24 11:20 AM GUANAKITO RENO During your visit today, we recorded the following information about you: Pulse Blood pressure Weight Height 59/minute 114/62 109.2 kg 1.778 m Guanakito Reno MD 07/12/2024 12:12 PM Signed Patient presents with: Follow Up HPI: Patient presents today for office visit for follow up. We had referred him to nephrology in March for ckd and anemia of ckd. Has stopped HCTZ. Actos. Melatonin. Still with pitting edema. Denies chest pain. No new or worsening shortness of breath. Currently wearing [employer] heart monitor. Placed yesterday. Follows with Cardiology. Dr. Reddy. Continues on Warfarin. Last INR 07/04/24 2.2 done remotely. No bleeding or bruising concerns. Per patient his memory is unchanged. According to son-in-law whom is with him at appointment states patient has "zone out" periods. Sometimes has hard time trying to convey things. Continues on Namenda. Had been referred to vascular surgery. Considering work up for TAVR and seeing vascular for his carotid disease. Hard time falling asleep sometimes. Admits to being awake all night long and then sleeps all day. Appetite has dwindled. Eating smaller and smaller portions. Has limited caffeine. Drinking water with flavoring packets. Trying to eat more protein and limit salt. Has not been checking his sugars. Discussed checking sugar when he zones out. If A1c remains low. We may stop his amaryl. Dicussed that his anemia may well be due to his kidney disease MEDICATIONS: Current Outpatient Medications Medication Sig iv contrast (will be provided with radiology test) CTA ABD/PEL - No IV access, insert saline lock prior to the sedation, infusion, injection for imaging exam. Discontinue saline lock post exam. If Pt. has a central line or IVAD, may access for administration according to line specific nursing protocol. Once exam is complete flush line and de-access according to line specific nursing protocol in the CT contrast administration guidelines link. enoxaparin (LOVENOX) 100 mg/mL syrg Inject 1 mL subcutaneously once daily. Inject entire contents of one(1) syringe atorvastatin (LIPITOR) 80 mg tablet Take 1 tablet by mouth daily at bedtime. For cholesterol. escitalopram oxalate (LEXAPRO) 10 mg tablet Take 1 tablet by mouth once daily. finasteride (PROSCAR) 5 mg tablet Take 1 tablet by mouth once daily. lisinopril (ZESTRIL) 20 mg tablet Take 1 tablet by mouth once daily. metoprolol succinate ER (TOPROL XL) 50 mg 24 hr tablet Take 1 tablet by mouth once daily. clopidogrel (PLAVIX) 75 mg tablet Take 1 tablet by mouth once daily. warfarin (COUMADIN) 5 mg tablet 7.5 mg on Monday, 5 mg all other days or as directed memantine (NAMENDA) 10 mg tablet Take 1 tablet by mouth once daily. glimepiride (AMARYL) 2 mg tablet Take 1 tablet by mouth daily with breakfast. nitroglycerin sublingual (NITROQUICK) 0.4 mg SL tablet Dissolve 1 tablet under the tongue as needed. for chest pain,every 5 min x3 acetaminophen (TYLENOL) 500 mg tablet Take 500 mg by mouth every 8 hours as needed. blood sugar diagnostic (ONETOUCH ULTRA TEST) test strip Test blood sugar(s) one times daily. Dx: 250.00. Insulin: No Lancets (ONE TOUCH DELICA) [facility] lancets Test blood sugar(s) one time daily. Dx: 250.00. Insulin: No No current facility-administered medications for this visit. ALLERGIES: ALLERGIES No Known Allergies PAST MEDICAL HISTORY Diagnosis Date Actinic keratosis 10/2004 BPH (benign prostatic hyperplasia) Carotid artery stenosis Chronic airway obstruction, not elsewhere classified 10/2004 Diabetes (HCC) Diverticulosis of colon (without mention of hemorrhage) Ectatic thoracic aorta (HCC) 06/07/2018 06/07/18 Chest CTA: There is atherosclerotic calcification of the thoracic aorta with mild fusiform ectasia of the descending component measuring 3.2 x 3.1 cm Impacted cerumen 10/2004 Obesity, unspecified 11/2003 Other and unspecified hyperlipidemia 10/2003 Other symptoms involving cardiovascular system 10/2004 Peripheral vascular disease, unspecified (HCC) 10/2004 R carotid Unspecified essential hypertension 04/2004 PAST SURGICAL HISTORY Procedure Laterality Date ARTL CATHJ/CANNULJ MNTR/TRANSFUSION SPX PRQ 04-17-14 COLONOSCOPY FLX DX W/COLLJ SPEC WHEN PFRMD 40 years ago Colonoscopy COLONOSCOPY FLX DX W/COLLJ SPEC WHEN PFRMD 03/02/11 DSTRJ LESION PENIS SIMPLE CHEMICAL 10/20 PAST SURGICAL HISTORY OF Skin tag removals - bilateral axillary REMOVAL IMPACTED CERUMEN INSTRUMENTATION UNILAT 10/20 TEAEC W/PATCH GRF CAROTID VERTB SUBCLAV NECK INC 04-17-14 RIGHT FAMILY HISTORY Problem Relation Age of Onset Heart Mother of CHF Stroke Maternal Grandfather Social History Tobacco Use Smoking (more content not included)... Normal [facility] Office Visit (FAMPWS ) -------- CAL MITCHELL ([id number]) 1945 M Date Time Provider Department 07/12/24 [facility] During your visit today, we recorded the following information about you: Guanakito Reno MD 07/15/2024 8:05 AM Signed Apparently second visit created in error. Allergies As of Date: 07/12/2024 (No Known Allergies) Date Reviewed: 07/12/2024 Reviewed by: Carolina Alba MA - Fully Assessed Primary Visit Diagnosis:Essential hypertension [I10] Prescriptions as of 07/15/2024 - iv contrast (will be provided with radiology test) CTA ABD/PEL - No IV access, insert saline lock prior to the sedation, infusion, injection for imaging exam. Discontinue saline lock post exam. If Pt. has a central line or IVAD, may access for administration according to line specific nursing protocol. Once exam is complete flush line and de-access according to line specific nursing protocol in the CT contrast administration guidelines link. - enoxaparin (LOVENOX) 100 mg/mL syrg Inject 1 mL subcutaneously once daily. Inject entire contents of one(1) syringe - atorvastatin (LIPITOR) 80 mg tablet Take 1 tablet by mouth daily at bedtime. For cholesterol. - escitalopram oxalate (LEXAPRO) 10 mg tablet Take 1 tablet by mouth once daily. - finasteride (PROSCAR) 5 mg tablet Take 1 tablet by mouth once daily. - lisinopril (ZESTRIL) 20 mg tablet Take 1 tablet by mouth once daily. - metoprolol succinate ER (TOPROL XL) 50 mg 24 hr tablet Take 1 tablet by mouth once daily. - clopidogrel (PLAVIX) 75 mg tablet Take 1 tablet by mouth once daily. - warfarin (COUMADIN) 5 mg tablet 7.5 mg on Monday, 5 mg all other days or as directed - memantine (NAMENDA) 10 mg tablet Take 1 tablet by mouth once daily. - glimepiride (AMARYL) 2 mg tablet Take 1 tablet by mouth daily with breakfast. - nitroglycerin sublingual (NITROQUICK) 0.4 mg SL tablet Dissolve 1 tablet under the tongue as needed. for chest pain,every 5 min x3 - acetaminophen (TYLENOL) 500 mg tablet Take 500 mg by mouth every 8 hours as needed. - blood sugar diagnostic (ONETOUCH ULTRA TEST) test strip Test blood sugar(s) one times daily. Dx: 250.00. Insulin: No - Lancets (ONE TOUCH DELICA) [facility] lancets Test blood sugar(s) one time daily. Dx: 250.00. Insulin: No Problem List As Of Date 07/12/2024 Noted Resolved Hyperlipidemia, mixed [E78.2] Essential hypertension [I10] Peripheral arterial disease (HCC) [I73.9] Other symptoms involving cardiovascular system * 07/20/2016 ACTINIC KERATOSIS [L57.0] 10/12/2005 IMPACTED CERUMEN [H61.20] 10/12/2005 COPD (chronic obstructive pulmonary disease) (H* 01/29/2020 Obesity, unspecified [E66.9] 07/12/2024 Dysmetabolic Syndrome X [E88.810] 06/24/2005 11/27/2009 OTHER ABNORMAL GLUCOSE [R73.09] 10/12/2005 10/02/2006 PAIN IN LIMB [M79.609] 02/15/2008 04/22/2009 Type 2 diabetes mellitus with stage 3 chronic k*11/27/2009 Pain in joint, shoulder region [M25.519] 12/07/2009 01/29/2020 SK (seborrheic keratosis) [L82.1] 01/26/2011 01/29/2020 AK (actinic keratosis) [L57.0] 01/26/2011 01/29/2020 Skin tags 01/26/2011 03/29/2011 Cutaneous skin tags [L91.8] 03/29/2011 05/24/2018 Occlusion and stenosis of unspecified carotid a*10/25/2013 03/26/2024 Frequency [UEY4579] 02/11/2016 03/26/2024 BPH (benign prostatic hypertrophy) with urinary*02/11/2016 Adhesive capsulitis of right shoulder [M75.01] 05/15/2018 Aortic stenosis [I35.0] 05/24/2018 CKD (chronic kidney disease) stage 3, GFR 30-59*05/24/2018 03/26/2024 Lung nodule [R91.1] 06/07/2018 Ectatic thoracic aorta (HCC) [I77.810] 06/07/2018 Paroxysmal atrial fibrillation (HCC) [I48.0] 03/05/2019 Inflamed seborrheic keratosis [L82.0] 03/14/2019 08/14/2023 Neoplasm of uncertain behavior of skin [D48.5] 03/14/2019 08/14/2023 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, 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, F02.80] 12/10/2019 Hypertensive kidney disease with stage 3 chroni*01/29/2020 [facility] (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 [Z79.*02/04/2020 Dementia, vascular, mixed, with behavioral dist*08/26/2020 08/14/2023 Obesity, Class II, BMI 35-39.9 [E66.9] 08/15/2022 Aortic valve disorder [I35.9] 08/15/2022 Abnormal electrocardiography [R94.31] 08/14/2023 Diagnosed: 08/14/2023 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4] 04/08/2024 Asymptomatic gallstones [K80.20] 05/03/2024 Encounter Status:Closed by GUANAKITO RENO on 07/15/24 [facility] 07-12-2024 CNPN Telephone (INTMWS) -------- CAL MITCHELL ([id number]) 1945 M Date Time Provider Department 07/12/24 GUANAKITO RENO INTMWS During your visit today, we recorded the following information about you: Art Estes 07/12/2024 12:40 PM Signed Attempted to find sooner apt time for patients nephrology apt, no sooner times within [facility] facilities that are faster than patients [facility] apt. Guanakito Reno MD 07/12/2024 12:49 PM Signed Noted. Thank you Allergies As of Date: 07/12/2024 (No Known Allergies) Date Reviewed: 07/12/2024 Reviewed by: Carolina Alba MA - Fully Assessed Prescriptions as of 07/12/2024 - iv contrast (will be provided with radiology test) CTA ABD/PEL - No IV access, insert saline lock prior to the sedation, infusion, injection for imaging exam. Discontinue saline lock post exam. If Pt. has a central line or IVAD, may access for administration according to line specific nursing protocol. Once exam is complete flush line and de-access according to line specific nursing protocol in the CT contrast administration guidelines link. - enoxaparin (LOVENOX) 100 mg/mL syrg Inject 1 mL subcutaneously once daily. Inject entire contents of one(1) syringe - atorvastatin (LIPITOR) 80 mg tablet Take 1 tablet by mouth daily at bedtime. For cholesterol. - escitalopram oxalate (LEXAPRO) 10 mg tablet Take 1 tablet by mouth once daily. - finasteride (PROSCAR) 5 mg tablet Take 1 tablet by mouth once daily. - lisinopril (ZESTRIL) 20 mg tablet Take 1 tablet by mouth once daily. - metoprolol succinate ER (TOPROL XL) 50 mg 24 hr tablet Take 1 tablet by mouth once daily. - clopidogrel (PLAVIX) 75 mg tablet Take 1 tablet by mouth once daily. - warfarin (COUMADIN) 5 mg tablet 7.5 mg on Monday, 5 mg all other days or as directed - memantine (NAMENDA) 10 mg tablet Take 1 tablet by mouth once daily. - glimepiride (AMARYL) 2 mg tablet Take 1 tablet by mouth daily with breakfast. - nitroglycerin sublingual (NITROQUICK) 0.4 mg SL tablet Dissolve 1 tablet under the tongue as needed. for chest pain,every 5 min x3 - acetaminophen (TYLENOL) 500 mg tablet Take 500 mg by mouth every 8 hours as needed. - blood sugar diagnostic (ONETOUCH ULTRA TEST) test strip Test blood sugar(s) one times daily. Dx: 250.00. Insulin: No - [facility] blood sugar(s) one time daily. Dx: 250.00. Insulin: No Problem List As Of Date 07/12/2024 Noted Resolved Hyperlipidemia, mixed [E78.2] Essential hypertension [I10] Peripheral arterial disease (HCC) [I73.9] Other symptoms involving cardiovascular system * 07/20/2016 ACTINIC KERATOSIS [L57.0] 10/12/2005 IMPACTED CERUMEN [H61.20] 10/12/2005 COPD (chronic obstructive pulmonary disease) (H* 01/29/2020 Obesity, unspecified [E66.9] 07/12/2024 Dysmetabolic Syndrome X [E88.810] 06/24/2005 11/27/2009 OTHER ABNORMAL GLUCOSE [R73.09] 10/12/2005 10/02/2006 PAIN IN LIMB [M79.609] 02/15/2008 04/22/2009 Type 2 diabetes mellitus with stage 3 chronic k*11/27/2009 Pain in joint, shoulder region [M25.519] 12/07/2009 01/29/2020 SK (seborrheic keratosis) [L82.1] 01/26/2011 01/29/2020 AK (actinic keratosis) [L57.0] 01/26/2011 01/29/2020 Skin tags 01/26/2011 03/29/2011 Cutaneous skin tags [L91.8] 03/29/2011 05/24/2018 Occlusion and stenosis of unspecified carotid a*10/25/2013 03/26/2024 Frequency [ZTP8987] 02/11/2016 03/26/2024 BPH (benign prostatic hypertrophy) with urinary*02/11/2016 Adhesive capsulitis of right shoulder [M75.01] 05/15/2018 Aortic stenosis [I35.0] 05/24/2018 CKD (chronic kidney disease) stage 3, GFR 30-59*05/24/2018 03/26/2024 Lung nodule [R91.1] 06/07/2018 Ectatic thoracic aorta (HCC) [I77.810] 06/07/2018 Paroxysmal atrial fibrillation (HCC) [I48.0] 03/05/2019 Inflamed seborrheic keratosis [L82.0] 03/14/2019 08/14/2023 Neoplasm of uncertain behavior of skin [D48.5] 03/14/2019 08/14/2023 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, 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, F02.80] 12/10/2019 Hypertensive kidney disease with stage 3 chroni*01/29/2020 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 [Z79.*02/04/2020 Dementia, vascular, mixed, with behavioral dist*08/26/2020 08/14/2023 Obesity, Class II, BMI 35-39.9 [E66.9] 08/15/2022 Aortic valve disorder [I35.9] 08/15/2022 Abnormal electrocardiography [R94.31] 08/14/2023 Diagnosed: 08/14/2023 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4] 04/08/2024 Asymptomatic gallstones [K80.20] 05/03/2024 Encounter Status:Closed by GUANAKITO RENO on 07/12/24 Normal [facility] metabolic 2000 panelon 07-12-2024 Albumin [Mass/Vol] 3.8 g/dL Low 3.9-4.9 [facility] 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: Order Comment: Speci men Type: BLOOD SPECIMENOrdering Facility: [facility] Address: [address] [place] [address] Performed By: #### L IPNF, 02774-7, 44621-8 ####[facility] LABCLIA [id number] [place] [address] [place] ALP [Catalytic activity/Vol] 123 U/L High 38-113 [facility] 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: Order Comment: Speci men Type: BLOOD SPECIMENOrdering Facility: [facility] Address: [address] [place] [address] Performed By: #### L IPNF, 35175-0, 09236-0 ####[facility] LABCLIA [id number] [place] [address] [place] ALT [Catalytic activity/Vol] 23 U/L Normal 10-54 [facility] 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: Order Comment: Speci men Type: BLOOD SPECIMENOrdering Facility: [facility] Address: [address] [place] [address] Performed By: #### L IPNF, 51689-9, 72222-3 ####[facility] LABCLIA [id number] [place] [address] [place] Anion gap [Moles/Vol] 11 mmol/L Normal 8-15 [facility] 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: Order Comment: Speci men Type: BLOOD SPECIMENOrdering Facility: [facility] Address: [address] [place] [address] Performed By: #### L IPNF, 61915-6, 21226-1 ####[facility] LABCLIA [id number] [place] [address] [place] AST [Catalytic activity/Vol] 25 U/L Normal 14-40 [facility] 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: Order Comment: Speci men Type: BLOOD SPECIMENOrdering Facility: [facility] Address: [address] [place] [address] Performed By: #### L IPNF, 71884-1, 45252-5 ####[facility] LABCLIA [id number] [place] [address] [place] Bilirubin [Mass/Vol] 0.4 mg/dL Normal 0.2-1.3 [facility] 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: Order Comment: Speci men Type: BLOOD SPECIMENOrdering Facility: [facility] Address: [address] [place] [address] Performed By: #### L IPNF, 39546-4, 87544-9 ####[facility] LABCLIA [id number] [place] [address] [place] Calcium [Mass/Vol] 8.2 mg/dL Low 8.5-10.2 [facility] 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: Order Comment: Speci men Type: BLOOD SPECIMENOrdering Facility: [facility] Address: [address] [place] [address] Performed By: #### L IPNF, 43941-6, 52746-7 ####[facility] LABCLIA [id number] [place] [address] [place] Chloride [Moles/Vol] 110 mmol/L High 98-107 [facility] 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: Order Comment: Speci men Type: BLOOD SPECIMENOrdering Facility: [facility] Address: [address] [place] [address] Performed By: #### L IPNF, 55058-5, 29120-6 ####[facility] LABCLIA [id number] [place] [address] [place] CO2 [Moles/Vol] 22 mmol/L Normal 22-30 [facility] 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: Order Comment: Speci men Type: BLOOD SPECIMENOrdering Facility: [facility] Address: [address] [place] [address] Performed By: #### L IPNF, 58921-7, 84486-6 ####[facility] LABIA [id number] [place] [address] [place] Creatinine [Mass/Vol] 2.40 mg/dL High 0.73-1.22 [facility] 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: Order Comment: Specnick men Type: BLOOD SPECIMENOrdering Facility: [facility] Address: [address] [place] [address] Performed By: #### L IPNF, 86996-6, 45542-0 ####[facility] LABIA [id number] [place] [address] [place] Creatinine and Glomerular filtration rate.predicted panel (S/P/Bld) 26 mL/min/1.73m??? Low >=60 [facility] 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: Order Comment: Marcelle shultz Type: BLOOD SPECIMENOrdering Facility: [facility] Address: [address] [place] [address] Result Comment: Lina mated Glomerular Filtration Rate (eGFR) is calculated using the 2020 CKD-EPI creatinine equation. This equation utilizes serum creatinine, sex, and age as parameters. The creatinine assay has traceable calibration to isotope dilution-mass spectrometry. Refer to KDIGO guidelines for clinical interpretation. In patients with unstable renal function, e.g. those with acute kidney injury, the eGFR may not accurately reflect actual GFR. Performed By: #### L IPNF, 54234-7, 93644-6 ####[facility] LABIA [id number] [place] [address] [place] Glucose [Mass/Vol] 100 mg/dL High 74-99 [facility] 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: Order Comment: Jocelini men Type: BLOOD SPECIMENOrdering Facility: [facility] Address: [address] [place] [address] Result Comment: The [place] Diabetes Association (ADA) provides guidance for cutoff values for fasting glucose and random glucose. The ADA defines fasting as no caloric intake for at least 8 hours. Fasting plasma glucose results between 100 to 125 mg/dL indicate increased risk for diabetes (prediabetes). Fasting plasma glucose results greater than or equal to 126 mg/dL meet the criteria for diagnosis of diabetes. In the absence of unequivocal hyperglycemia, results should be confirmed by repeat testing. In a patient with classic symptoms of hyperglycemia or hyperglycemic crisis, random plasma glucose results greater than or equal to 200 mg/dL meet the criteria for diagnosis of diabetes. Reference: Standards of Medical Care in Diabetes 2016, [place] Diabetes Association. Diabetes Care. 2016.39(Suppl 1). Performed By: #### L IPNF, 87207-5, 24795-9 ####[facility] LABCLIA [id number] [place] [address] [place] Potassium [Moles/Vol] 4.6 mmol/L Normal 3.7-5.1 [facility] 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: Order Comment: Speci men Type: BLOOD SPECIMENOrdering Facility: [facility] Address: [address] [place] [address] Performed By: #### L IPNF, 34481-0, ####[facility] LABCLIA [id number] [place] [address] [place] Protein [Mass/Vol] 6.6 g/dL Normal 6.3-8.0 [facility] 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: Order Comment: Speci men Type: BLOOD SPECIMENOrdering Facility: [facility] Address: [address] [place] [address] Performed By: #### L IPNF, 63309-0, 29670-4 ####[facility] LABCLIA [id number] [place] [id number] [place] Sodium [Moles/Vol] 143 mmol/L Normal 136-144 [facility] 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: Order Comment: Speci men Type: BLOOD SPECIMENOrdering Facility: [facility] Address: [address] [place] [address] Performed By: #### L IPNF, 84613-7, ####[facility] LABCLIA [id number] [place] [address] [place] Urea nitrogen [Mass/Vol] 37 mg/dL High 9-24 [facility] 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: Order Comment: Marcelle shultz Type: BLOOD SPECIMENOrdering Facility: [facility] Address: [address] [place] [address] Performed By: #### L IPNF, 96827-7, 38263-3 ####[facility] LABIA [id number] [place] [address] [place] HbA1c (Bld)on 07-12-2024 Average glucose Estimated from glycated hemoglobin (Bld) [Mass/Vol] 134 mg/dL Normal [facility] 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: Order Comment: Marcelle shultz Type: BLOOD SPECIMENOrdering Facility: [facility] Address: [address] [place] [address] Result Comment: eAG: (Estimated average glucose) is a calculated value from HgbA1c and is senior customer service representative of the average blood glucose level in the last 2-3 month period. Performed By: #### 5 5454-3 ####[facility] LABIA [id number] [place] [address] [place] HbA1c (Bld) [Mass fraction] 6.3 % High 4.3-5.6 [facility] 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: Order Comment: Marcelle shultz Type: BLOOD SPECIMENOrdering Facility: [facility] Address: [address] [place] [address] Result Comment: [place] Diabetes Association guidelines indicate that patients with HgbA1c in the range 5.7-6.4% are at increased risk for development of diabetes, and intervention by lifestyle modification may be beneficial. HgbA1c greater or equal to 6.5% is considered diagnostic of diabetes. Performed By: #### 5 5454-3 ####[facility] LABIA [id number] [place] [address] [place] LIPID PANEL, NONFASTINGon Cholesterol [Mass/Vol] 156 mg/dL Normal <200 [facility] 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: Order Comment: Speci men Type: BLOOD SPECIMENOrdering Facility: [facility] Address: [address] [place] [address] Result Comment: <200 mg/dL, Desirable 200-239 mg/dL, Borderline high >239 mg/dL, High Performed By: #### L IPNF, 12198-4, 67390-9 ####[facility] LABCLIA [id number] [place] [address] [place] HDL CHOLESTEROL, NF 44 mg/dL Normal >39 [facility] 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: Order Comment: Speci men Type: BLOOD SPECIMENOrdering Facility: [facility] Address: [address] [place] [address] Result Comment: 40-5 9 mg/dL, Acceptable >59 mg/dL, High: Negative risk factor for coronary heart disease <40 mg/dL, Low: Positive risk factor for coronary heart disease Performed By: #### L IPNF, 15700-3, 81932-9 ####[facility] LABCLIA [id number] [address] [place] LDL CHOLESTEROL, NF 93 mg/dL Normal <100 [facility] 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: Order Comment: Speci men Type: BLOOD SPECIMENOrdering Facility: [facility] Address: [address] [place] [address] Result Comment: <100 mg/dL, Optimal 100-129 mg/dL, Near optimal/above optimal 130-159 mg/dL, Borderline high 160-189 mg/dL, High >189 mg/dL, Very high Secondary prevention optimal LDL Cholesterol levels are recommended to be < 70 mg/dL Performed By: #### L IPNF, 54784-8, 78020-1 ####[facility] LABCLIA [id number] [place] [address] [place] LDL/HDL RATIO, NF 2.11 mg/dL Normal <2.54 [facility] 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: Order Comment: Speci men Type: BLOOD SPECIMENOrdering Facility: [facility] Address: [address] [place] [address] Result Comment: Scot soto: 1. National Cholesterol Education Program ATP III Guideline At-A-Glance Quick Desk Reference: National Heart, Lung, and Blood [place]. National Institutes of Health. 2001: NIH Publication No. 01-3305. 2. An International Atherosclerosis Society position paper: global recommendations for the management of dyslipidemia: executive summary, Atherosclerosis. 2014: 232(2):410-413. Performed By: #### L IPNF, 84504-8, 98216-4 ####[facility] LABCLIA [id number] [place] [address] [place] NON HDL CHOL, NF 112 mg/dL Normal <130 [facility] 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: Order Comment: Speci men Type: BLOOD SPECIMENOrdering Facility: [facility] Address: [address] [place] [address] Result Comment: <130 mg/dL, Optimal 130-159 mg/dL, Near optimal/above optimal 160-189 mg/dL, Borderline high 190-219 mg/dL, High >219 mg/dL, Very high Secondary prevention optimal non HDL Cholesterol levels are recommended to be <100 mg/dL Performed By: #### L IPNF, 77467-0, ####[facility] LABCLIA [id number] [place] [address] [place] T CHOL/HDL RATIO NF 3.55 mg/dL Normal <5.10 [facility] 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: Order Comment: Speci men Type: BLOOD SPECIMENOrdering Facility: [facility] Address: [address] [place] [address] Performed By: #### L IPNF, 19262-2, ####[facility] [facility] LABCLIA [id number] [place] [address] [place] TRIGLYCERIDES, NF 97 mg/dL Normal <150 [facility] 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: Order Comment: Speci men Type: BLOOD SPECIMENOrdering Facility: [facility] Address: [address] [place] [address] Result Comment: <150 mg/dL, Normal 150-199 mg/dL, Borderline high 200-499 mg/dL, High >499 mg/dL, Very high Performed By: #### L WAYLON, 65045-2, 12946-3 ####[facility] LABCLIA [id number] [place] [address] [place] VLDL CHOLESTEROL, NF 19 mg/dL Normal <30 [facility] 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: Order Comment: Speci men Type: BLOOD SPECIMENOrdering Facility: [facility] Address: [address] [place] [address] Performed By: #### L WAYLON, 58237-8, ####[facility] LABCLIA [id number] [address] [place] NT-proBNP [facility] 07-12 Natriuretic peptide.B prohormone N-Terminal [Mass/Vol] 314 pg/mL Normal <450 [facility] 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: Order Comment: Speci lexii Type: BLOOD SPECIMENOrdering Facility: [facility] Address: [address] [place] [address] Performed By: #### L WAYLON, 71782-4, 26714-8 ####[facility] LABIA [id number] [place] [address] [place] PT panel Coag (PPP)on 2023 INR Coag (PPP) [Relative time] 2.8 {INR} High 0.9-1.3 [facility] 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: Order Comment: Jocelini lexii Type: BLOOD SPECIMENOrdering Facility: [facility] Address: [address] [place] [address] Result Comment: Valentina min K Antagonist (VKA) Therapeutic Range: INR 2 to 3 (Target INR of 2.5) Note: For patients treated with VKA drugs, such as warfarin, the [employer] 2012 Guideline recommends a therapeutic INR range of 2 to 3 (target INR of 2.5). This recommendation includes high-risk patients with antiphospholipid syndrome with previous arterial or venous thromboembolism, current-generation mechanical or bioprosthetic aortic heart valve replacement. Note: Patients with mechanical aortic valve replacement and additional risk factors for thromboembolic events (atrial fibrillation, previous thromboembolism, LV dysfunction, hypercoagulable conditions) or an older generation mechanical AVR (i.e., ball in-Cage) or any mechanical MVR should have a INR therapeutic range of 2.5 to 3.5 (target INR of 3). Miguel GH, et al. Chest 2012, 141:7S-47S Rosa RA, et al. [facility] 2017, 70: 252-289 Performed By: #### 3 4528-0 ####[facility] [id number] [place] [address] [place] PT Coag (PPP) [Time] 27.0 s High 9.7-13.0 [facility] 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: Order Comment: Speci men Type: BLOOD SPECIMENOrdering Facility: [facility] Address: [address] [place] [address] Performed By: #### 3 4528-0 ####[facility] [id number] [place] [address] [place] CNOVon 07-10-2024 CNOV Office Visit (AGTAVR ) -------- CAL MITCHELL ([id number]) 1945 M Date Time Provider Department 07/10/24 8:30 AM PAM REDDY AGTAVR During your visit today, we recorded the following information about you: Pulse Blood pressure Weight Height 94/minute 120/70 109 kg 1.778 m Bi Cantu LPN 07/10/2024 3:17 PM Signed CARDIAC REHAB 5 METER WALK TEST SERVICE DATE: 07/10/2024 SERVICE TIME: 8:05AM (Patient used his cane for mobile stability during his 5 Meter Walk Test.) 11.00sec 10.58sec 10.59sec ASSESSMENT: SIGNATURE: Bi Cantu LPN PATIENT NAME: Cal Mitchell DATE: July 10, 2024 TIME: 8:06 AM PAGER/CONTACT #: [phone] Josselyn Mayer, ÁLVARO.PITCH WORKER 07/10/2024 9:31 AM Addendum Today, you met with Dr. Reddy and Dr. Thacker to discuss your aortic valve stenosis. We are recommending: Blood Work 14 Day Holter Monitor Cardiac Catheterization TAVR Scans (CT Scans of chest, abdomen, and pelvis) Establish with Kidney Doctor 6. Geriatric Evaluation 7. Vascular Surgery evaluation for carotid stenosis Patient information: Aortic stenosis What is aortic stenosis? -- Aortic stenosis is a condition in which one of the valves in the heart, called the aortic valve, doesn't open fully. The heart valves keep blood flowing in only one direction. When the heart valves work normally, they open all the way to let blood flow through them. Blood flows from a chamber of the heart called the left ventricle, through the aortic valve, into a large blood vessel called the aorta. The aorta carries blood to the rest of the body. In aortic stenosis, the aortic valve gets stuck and does not open fully. This makes the valve opening narrow. When this happens: ?Not as much blood can flow out of the heart to the rest of the body. ?The heart has to work much harder than usual to pump blood to the rest of the body. Over time, this can cause heart problems. Aortic stenosis usually happens in adults. But some people are born with aortic stenosis. What are the symptoms of aortic stenosis? -- Early on, most people have no symptoms. They usually find out they have aortic stenosis after their doctor or nurse hears a heart murmur on a routine exam. A heart murmur is an extra sound in the heartbeat that doctors or nurses hear when they listen to the heart with a stethoscope. When people do have symptoms, they can have: ?Shortness of breath ?Dizziness or fainting ?Chest pain These symptoms usually happen with physical activity. Let your provider know if you have any of these symptoms. Is there a test for aortic stenosis? -- Yes. To check for aortic stenosis and see how severe it is, your doctor might order an echocardiogram (or "echo"). This test uses sound waves to create a picture of your heart as it beats. It shows the size of the heart chambers, how well the heart is pumping, and how well the heart valves are working. If you have aortic stenosis, your doctor might repeat this test over time to see if your condition changes. To get more information about your heart, your provider might order a test called cardiac catheterization, or "cardiac cath." For this, the provider puts a thin tube into a blood vessel in your leg or arm. Then he or she moves the tube up to your heart. When the tube is in your heart or blood vessels, he or she will take measurements. The provider might also put a dye that shows up on an X-ray into the tube. It can show if any of the arteries in your heart are narrowed or blocked. This part of the test is called "coronary angiography." Your provider might order a test called an electrocardiogram (ECG or EKG). This test measures the electrical activity in your heart. Some people with aortic stenosis will also have a chest X-ray. A chest X-ray can show the size and shape of your heart. It can also show changes in your lungs from aortic stenosis or other diseases. How is aortic stenosis treated? -- Treatment depends on your symptoms and how severe your aortic stenosis is. If your aortic stenosis is mild or you have little or no symptoms, you might not need any treatment. But your provider will follow you to see if your aortic stenosis gets worse or you start to have symptoms. If your aortic stenosis is severe or you have a lot of symptoms, you will likely need treatment. Treatment can include: ?Surgery to replace your aortic valve - During surgery, the doctor will remove your narrowed valve and replace it with a valve that opens normally. This new valve can be made from metal or from tissue from a pig, cow, or horse. In some cases, a new valve comes from another person. Your doctor will talk with you about the benefits and downsides of each option. ?A procedure to put in a new aortic valve without surgery - This is a type of procedure that doctors can do to sandeep (more content not included)... Normal [facility] CNOV Office Visit (AGTAVR ) -------- CAL MITCHELL ([id number]) 1945 M Date Time Provider Department 07/10/24 8:30 AM CAL THACKER AGTAVR During your visit today, we recorded the following information about you: Pulse Blood pressure Weight Height 94/minute 120/70 109 kg 1.778 m Bi Cantu LPN 07/10/2024 9:32 AM Signed CARDIAC REHAB 5 METER WALK TEST SERVICE DATE: 07/10/2024 SERVICE TIME: 8:05AM (Patient used his cane for mobile stability during his 5 Meter Walk Test.) 11.00sec 10.58sec 10.59sec ASSESSMENT: SIGNATURE: Bi Cantu LPN PATIENT NAME: Cal Mitchell DATE: July 10, 2024 TIME: 8:13 AM PAGER/CONTACT #: [phone] Cal Thacker MD 07/10/2024 9:32 AM Signed PRIMARY CARE PHYSICIAN: Guanakito Reno [address] [place] [id number] Subjective Chief Complaint Patient presents with: Aortic Stenosis: Cal is here for TAVR evaluation. HISTORY OF PRESENT ILLNESS: Mr. 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 He was seen in the office with Dr. Reddy on 03/25/24 and at that time it was suggested that he follows with us in 6 months to evaluate for symptoms and progression. He has a PMH of DMII, obesity, PVD, CVA and R CEA in 2013, and afib on coumadin. He was recently diagnosed with dementia, and he is basically unable to take care of himself and relies on his daughter for day-to-day help, such as taking his medications, driving, etc. He does get SOB with minimal exertion and he has had multiple episodes which appear syncopal in nature at home. Review of Systems Constitutional: Negative for chills, fever, malaise/fatigue and weight loss. HENT: Negative for sore throat. Eyes: Negative for blurred vision and double vision. Respiratory: Positive for shortness of breath. Negative for cough, hemoptysis, wheezing and stridor. Cardiovascular: Negative for chest pain, palpitations, leg swelling and PND. Gastrointestinal: Negative for abdominal pain, melena, nausea and vomiting. Genitourinary: Negative for flank pain and hematuria. Musculoskeletal: Negative for myalgias. Skin: Negative for rash. Neurological: Positive for dizziness and loss of consciousness. Negative for seizures and weakness. Endo/Heme/Allergies: Does not bruise/bleed easily. Objective PAST MEDICAL HISTORY Diagnosis Date Actinic keratosis 10/20 BPH (benign prostatic hyperplasia) Chronic airway obstruction, not elsewhere classified 10/20 Diabetes (HCC) Diverticulosis of colon (without mention of hemorrhage) Ectatic thoracic aorta (HCC) 06/07/2018 06/07/18 Chest CTA: There is atherosclerotic calcification of the thoracic aorta with mild fusiform ectasia of the descending component measuring 3.2 x 3.1 cm Impacted cerumen 10/20 Obesity, unspecified 11/19 Other and unspecified hyperlipidemia 10/19 Other symptoms involving cardiovascular system 10/20 Peripheral vascular disease, unspecified (HCC) 10/20 R carotid Unspecified essential hypertension 04/18 PAST SURGICAL HISTORY Procedure Laterality Date ARTL CATHJ/CANNULJ MNTR/TRANSFUSION SPX PRQ 04-17-14 COLONOSCOPY FLX DX W/COLLJ SPEC WHEN PFRMD 40 years ago Colonoscopy COLONOSCOPY FLX DX W/COLLJ SPEC WHEN PFRMD 03/02/11 DSTRJ LESION PENIS SIMPLE CHEMICAL 10/20 PAST SURGICAL HISTORY OF Skin tag removals - bilateral axillary REMOVAL IMPACTED CERUMEN INSTRUMENTATION UNILAT 10/20 TEAEC W/PATCH GRF CAROTID VERTB SUBCLAV NECK INC 04-17-14 RIGHT FAMILY HISTORY Problem Relation Age of Onset Heart Mother of CHF Stroke Maternal Grandfather Social History Tobacco Use Smoking status: Former Current packs/day: 0.00 Average packs/day: 2.0 packs/day for 10.0 years (20.0 ttl pk-yrs) Types: Cigarettes Start date: 12/05/1975 Quit date: 12/05/1985 Years since quittin.6 Smokeless tobacco: Never Vaping Use Vaping status: Never Used Substance Use Topics Alcohol use: No Comment: none now; social in past Drug use: No ALLERGIES No Known Allergies Physical Examination Vitals:BP 120/70 Pulse 94 Ht 5' 10"[Patient reports[ (1.78m) Wt 240 lb 6.4 oz (109.0kg) SpO2 94% BMI 34.49 kg/(m2). BP w/Orthostatic Vitals Date and Time Orthostatic BP Orthostatic Pulse BP Pulse BP Position BP Site BP Cuff Size 07/10/24 0811 -- -- 120/70 94 Sitting Left Arm Extra Large Adult Last 2 Encounter Wt Readings: Date: Wt: 07/10/2024 240 lb 6.4 oz (109 kg) 07/10/2024 240 lb 6.4 oz (109 kg) Physical Exam HENT: Head: Normocephalic and atraumatic. Eyes: Pupils: Pupils are equal, round, and reactive to light. Neck: Thyroid: No thyromegaly. Trachea: No tracheal deviation. Cardiovascular: Rate and Rhythm: Normal rate and regular rhythm. Heart sounds: Murmur heard. Comments: Systolic murmur (more content not included)... Normal [facility] ECG B/O W INTERP (MED OFFICE )on 07-10-2024 Sinus rhythm with fi rst degree heart block [facility] NURSING PROGon 07-10-2024 NURSING PROG HNO ID: [id number] Author: JUDY DÍAZ, [employer] Service: ? Author Type: [employer] Type: Nursing Progress Note Filed: 07/10/2024 10:29 Note Text: Applied 14 day extended wear EKG patch. Pt verbalized understanding of monitor use / diary. Normal [facility] CNPNon 07-05-2024 CNPN Telephone ([employer]) -------- CAL MITCHELL ([id number]) 1945 M Date Time Provider Department 07/05/24 ANNAMARIE GARCIA During your visit today, we recorded the following information about you: Annamarie Garcia RPh 07/05/2024 9:47 AM Signed [facility] Anticoagulation Episode Summary Anticoagulation Care Providers Provider Role Specialty Phone number Guanakito Reno MD [facility] Medicine [phone] Cal Mitchell is a 79 year old year old male patient being evaluated today for a Telemanagement visit. Patient is currently on the following anticoagulant(s) Warfarin. Labs PT INR (no units) Date Value 09/28/2022 1.9 (self reporting) 01/24/2022 2.1 biotel 10/26/2021 2.1 (Biotel) INR Home CoaguChek (no units) Date Value 07/04/2024 2.2 06/15/2024 3.2 05/16/2024 2.8 Hemoglobin (g/dL) Date Value 04/19/2024 9.5 10/06/2020 12.3 Hematocrit (%) Date Value 04/19/2024 32.3 10/06/2020 39.0 Platelet Count (k/uL) Date Value 04/19/2024 160 10/06/2020 189 Creatinine (mg/dL) Date Value 04/19/2024 2.35 04/04/2024 2.61 03/25/2024 2.48 10/06/2020 1.60 07/18/2019 1.46 03/18/2019 1.51 Bilirubin, Total (mg/dL) Date Value 03/25/2024 0.3 10/06/2020 0.4 ALT (U/L) Date Value 03/25/2024 15 10/06/2020 16 AST (U/L) Date Value 03/25/2024 19 10/06/2020 17 Estimated Creatinine Clearance: 30.2 mL/min (A) (based on SCr of 2.35 mg/dL (H)). 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: [facility] (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 Paroxysmal atrial fibrillation (hcc) Anticoagulation Episode Summary Current INR goal: 2.0-3.0 Assessment: INR result of 2.2 is therapeutic Plan: Current Warfarin Dosing As of 07/05/2024 Full warfarin instructions: 5 mg every day Left voice message And [facility] Advised patient to continue current weekly dose as noted above Next home INR check scheduled on 07/18/2024 Annamarie Garcia [facility] Clinical Pharmacist, Pharmacy Anticoagulation Clinic Pharmacy Anticoagulation Clinic Pager: [phone]. Jimmy Carrizales [facility] 07/18/2024 2:29 PM Signed Patient was due to test INR today. Will continue to monitor for results. Follow up in one week if no results received. Jimmy Carrizales [facility] Allergies As of Date: 07/05/2024 (No Known Allergies) Date Reviewed: 06/06/2024 Reviewed by: Carolina Landeros APRN.PITCH WORKER - Fully Assessed Reason for Visit: Anticoagulation Telephone Fu [148] Primary Visit Diagnosis:[facility] (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 [Z79.01] Other Visit Diagnosis:Paroxysmal atrial fibrillation (HCC) [I48.0] Prescriptions as of 07/18/2024 - iv contrast (will be provided with radiology test) CTA ABD/PEL - No IV access, insert saline lock prior to the sedation, infusion, injection for imaging exam. Discontinue saline lock post exam. If Pt. has a central line or IVAD, may access for administration according to line specific nursing protocol. Once exam is complete flush line and de-access according to line specific nursing protocol in the CT contrast administration guidelines link. - enoxaparin (LOVENOX) 100 mg/mL syrg Inject 1 mL subcutaneously once daily. Inject entire contents of one(1) syringe - atorvastatin (LIPITOR) 80 mg tablet Take 1 tablet by mouth daily at bedtime. For cholesterol. - escitalopram oxalate (LEXAPRO) 10 mg tablet Take 1 tablet by mouth once daily. - finasteride (PROSCAR) 5 mg tablet Take 1 tablet by mouth once daily. - lisinopril (ZESTRIL) 20 mg tablet Take 1 tablet by mouth once daily. - metoprolol succinate ER (TOPROL XL) 50 mg 24 hr tablet Take 1 tablet by mouth once daily. - clopidogrel (PLAVIX) 75 mg tablet Take 1 tablet by mouth once daily. - warfarin (COUMADIN) 5 mg tablet 7.5 mg on Monday, 5 mg all other days or as directed - memantine (NAMENDA) 10 mg tablet Take 1 tablet by mouth once daily. - nitroglycerin sublingual (NITROQUICK) 0.4 mg SL tablet Dissolve 1 tablet under the tongue as needed. for chest pain,every 5 min x3 - acetaminophen (TYLENOL) 500 mg tablet Take 500 mg by mouth every 8 hours as needed. - blood sugar diagnostic (ONETOUCH ULTRA TEST) test strip Test blood sugar(s) one times daily. Dx: 250.00. Insulin: No - Lancets (ONE TOUCH DELICA) [facility] lancets Test blood sugar(s) one time daily. Dx: 250.00. Insulin: No Problem List As Of Date 07/05/2024 Noted Resolved Hyperlipidemia, mixed [E78.2] Essential hypertension [I10] Peripheral arterial disease (HCC) [I73.9] Other symptoms involving cardiovascular system * 07/20/2016 ACTINIC KERATOSIS [L57.0] 10/12/2005 IMPACTED CERUMEN [H61.20] 10/12/2005 COPD (chronic obstructive pulmonary disease) (H* 01/29/2020 OBESITY NOS [E66.9] Dysmetabolic Syndrome X [E88.810] 06/24/2005 11/27/2009 OTHER ABNORM (more content not included)... Normal [facility]24 [facility] -------- CAL MITCHELL ([id number]) 1945 M Date Time Provider Department 06/27/24 GUANAKITO RENO [facility] During your visit today, we recorded the following information about you: Allergies As of Date: 2024 (No Known Allergies) Date Reviewed: 06/06/2024 Reviewed by: Carolina Landeros APRN.PITCH WORKER - Fully Assessed Primary Visit Diagnosis:Screen for colon cancer [Z12.11] Order(s):IMMUNOCHEMICAL FECAL OCCULT BLOOD TEST [SQIFOBT] Order #: [id number]. #:[id number] Prescriptions as of 2024 - atorvastatin (LIPITOR) 80 mg tablet Take 1 tablet by mouth daily at bedtime. For cholesterol. - escitalopram oxalate (LEXAPRO) 10 mg tablet Take 1 tablet by mouth once daily. - finasteride (PROSCAR) 5 mg tablet Take 1 tablet by mouth once daily. - lisinopril (ZESTRIL) 20 mg tablet Take 1 tablet by mouth once daily. - metoprolol succinate ER (TOPROL XL) 50 mg 24 hr tablet Take 1 tablet by mouth once daily. - clopidogrel (PLAVIX) 75 mg tablet Take 1 tablet by mouth once daily. - warfarin (COUMADIN) 5 mg tablet 7.5 mg on Monday, 5 mg all other days or as directed - memantine (NAMENDA) 10 mg tablet Take 1 tablet by mouth once daily. - glimepiride (AMARYL) 2 mg tablet Take 1 tablet by mouth daily with breakfast. - nitroglycerin sublingual (NITROQUICK) 0.4 mg SL tablet Dissolve 1 tablet under the tongue as needed. for chest pain,every 5 min x3 - acetaminophen (TYLENOL) 500 mg tablet Take 500 mg by mouth every 8 hours as needed. - blood sugar diagnostic (ONETOUCH ULTRA TEST) test strip Test blood sugar(s) one times daily. Dx: 250.00. Insulin: No - Lancets (ONE TOUCH DELICA) [facility] lancets Test blood sugar(s) one time daily. Dx: 250.00. Insulin: No Problem List As Of Date 2024 Noted Resolved Hyperlipidemia, mixed [E78.2] Essential hypertension [I10] Peripheral arterial disease (HCC) [I73.9] Other symptoms involving cardiovascular system * 07/20/2016 ACTINIC KERATOSIS [L57.0] 10/12/2005 IMPACTED CERUMEN [H61.20] 10/12/2005 COPD (chronic obstructive pulmonary disease) (H* 01/29/2020 OBESITY NOS [E66.9] Dysmetabolic Syndrome X [E88.810] 06/24/2005 11/27/2009 OTHER ABNORMAL GLUCOSE [R73.09] 10/12/2005 10/02/2006 PAIN IN LIMB [M79.609] 02/15/2008 04/22/2009 Type 2 diabetes mellitus with stage 3 chronic k*11/27/2009 Pain in joint, shoulder region [M25.519] 12/07/2009 01/29/2020 SK (seborrheic keratosis) [L82.1] 01/26/2011 01/29/2020 AK (actinic keratosis) [L57.0] 01/26/2011 01/29/2020 Skin tags 01/26/2011 03/29/2011 Cutaneous skin tags [L91.8] 03/29/2011 05/24/2018 Occlusion and stenosis of unspecified carotid a*10/25/2013 03/26/2024 Frequency [YWB1734] 02/11/2016 03/26/2024 BPH (benign prostatic hypertrophy) with urinary*02/11/2016 Adhesive capsulitis of right shoulder [M75.01] 05/15/2018 Aortic stenosis [I35.0] 05/24/2018 CKD (chronic kidney disease) stage 3, GFR 30-59*05/24/2018 03/26/2024 Lung nodule [R91.1] 06/07/2018 Ectatic thoracic aorta (HCC) [I77.810] 06/07/2018 Paroxysmal atrial fibrillation (HCC) [I48.0] 03/05/2019 Inflamed seborrheic keratosis [L82.0] 03/14/2019 08/14/2023 Neoplasm of uncertain behavior of skin [D48.5] 03/14/2019 08/14/2023 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, 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, F02.80] 12/10/2019 Hypertensive kidney disease with stage 3 chroni*01/29/2020 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 [Z79.*02/04/2020 Dementia, vascular, mixed, with behavioral dist*08/26/2020 08/14/2023 Obesity, Class II, BMI 35-39.9 [E66.9] 08/15/2022 Aortic valve disorder [I35.9] 08/15/2022 Abnormal electrocardiography [R94.31] 08/14/2023 Diagnosed: 08/14/2023 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4] 04/08/2024 Asymptomatic gallstones [K80.20] 05/03/2024 Encounter Status:Closed by GUANAKITO RENO on 06/27/24 Normal [facility] Hemoccult Stl Ql IAon 2023 Lower GI hemoglobin IA Ql (Stl) Negative Normal Negative [facility] 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: Order Comment: Speci men Type: STOOL SPECIMENOrdering Facility: [facility] Address: [address] [place] [address] Performed By: #### 2 9771-3 ####[facility] LABCLIA [id number] [facility] [id number] OF [facility] CNPIndu 06-18-2024 CNPN Telephone (PHAMTE) -------- CAL MITCHELL ([id number]) 1945 M Date Time Provider Department 06/18/24 JIMMY CARRIZALES During your visit today, we recorded the following information about you: [facility] 06/18/2024 8:42 AM Signed [facility] Anticoagulation Episode Summary Anticoagulation Care Providers Provider Role Specialty Phone number Guanakito Reno MD [facility] Family Medicine [phone] Cal Mitchell is a 78 year old year old male patient being evaluated today for a Telemanagement visit. Patient is currently on the following anticoagulant(s) Warfarin. Labs PT INR (no units) Date Value 09/28/2022 1.9 (self reporting) 01/24/2022 2.1 biotel 10/26/2021 2.1 (Biotel) INR Home CoaguChek (no units) Date Value 06/15/2024 3.2 05/16/2024 2.8 04/23/2024 2.7 Hemoglobin (g/dL) Date Value 04/19/2024 9.5 10/06/2020 12.3 Hematocrit (%) Date Value 04/19/2024 32.3 10/06/2020 39.0 Platelet Count (k/uL) Date Value 04/19/2024 160 10/06/2020 189 Creatinine (mg/dL) Date Value 04/19/2024 2.35 04/04/2024 2.61 03/25/2024 2.48 10/06/2020 1.60 07/18/2019 1.46 03/18/2019 1.51 Bilirubin, Total (mg/dL) Date Value 03/25/2024 0.3 10/06/2020 0.4 ALT (U/L) Date Value 03/25/2024 15 10/06/2020 16 AST (U/L) Date Value 03/25/2024 19 10/06/2020 17 Estimated Creatinine Clearance: 30.7 mL/min (A) (based on SCr of 2.35 mg/dL (H)). 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: [facility] (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 Paroxysmal atrial fibrillation (hcc) Anticoagulation Episode Summary Current INR goal: 2.0-3.0 Assessment: INR result of 3.2 is SUPRAtherapeutic due to: unknown cause - did not speak to patient Plan: Current Warfarin Dosing As of 06/18/2024 Full warfarin instructions: 06/18: 2.5 mg; Otherwise 5 mg every day Left voice message Advised patient to decrease dose for 1 day only then resume weekly regimen Next home INR check scheduled on 07/02/2024 Jimmy Carrizales RP Clinical Pharmacist, Pharmacy Anticoagulation Clinic Pharm[facility] Pager: [phone]. Jimmy Carrizales RPh 07/02/2024 5:21 PM Signed Patient was due to test INR today. Will continue to monitor for results. Follow up in one week if no results received. Jimmy Carrizales RPh Allergies As of Date: 06/18/2024 (No Known Allergies) Date Reviewed: 06/06/2024 Reviewed by: Suppan, Carolina A, [employer].PITCH WORKER - Fully Assessed Reason for Visit: Anticoagulation Telephone Fu [148] Cmt: Home INR Primary Visit Diagnosis:[facility] (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 [Z79.01] Other Visit Diagnosis:Paroxysmal atrial fibrillation (HCC) [I48.0] Prescriptions as of 07/02/2024 - atorvastatin (LIPITOR) 80 mg tablet Take 1 tablet by mouth daily at bedtime. For cholesterol. - escitalopram oxalate (LEXAPRO) 10 mg tablet Take 1 tablet by mouth once daily. - finasteride (PROSCAR) 5 mg tablet Take 1 tablet by mouth once daily. - lisinopril (ZESTRIL) 20 mg tablet Take 1 tablet by mouth once daily. - metoprolol succinate ER (TOPROL XL) 50 mg 24 hr tablet Take 1 tablet by mouth once daily. - clopidogrel (PLAVIX) 75 mg tablet Take 1 tablet by mouth once daily. - warfarin (COUMADIN) 5 mg tablet 7.5 mg on Monday, 5 mg all other days or as directed - memantine (NAMENDA) 10 mg tablet Take 1 tablet by mouth once daily. - glimepiride (AMARYL) 2 mg tablet Take 1 tablet by mouth daily with breakfast. - nitroglycerin sublingual (NITROQUICK) 0.4 mg SL tablet Dissolve 1 tablet under the tongue as needed. for chest pain,every 5 min x3 - acetaminophen (TYLENOL) 500 mg tablet Take 500 mg by mouth every 8 hours as needed. - blood sugar diagnostic (ONETOUCH ULTRA TEST) test strip Test blood sugar(s) one times daily. Dx: 250.00. Insulin: No - Lancets (ONE TOUCH DELICA) [facility] [place]ancets Test blood sugar(s) one time daily. Dx: 250.00. Insulin: No Problem List As Of Date 06/18/2024 Noted Resolved Hyperlipidemia, mixed [E78.2] Essential hypertension [I10] Peripheral arterial disease (HCC) [I73.9] Other symptoms involving cardiovascular system * 07/20/2016 ACTINIC KERATOSIS [L57.0] 10/12/2005 IMPACTED CERUMEN [H61.20] 10/12/2005 COPD (chronic obstructive pulmonary disease) (H* 01/29/2020 OBESITY NOS [E66.9] Dysmetabolic Syndrome X [E88.810] 06/24/2005 11/27/2009 OTHER ABNORMAL GLUCOSE [R73.09] 10/12/2005 10/02/2006 PAIN IN LIMB [M79.609] 02/15/2008 04/22/2009 Type 2 diabetes mellitus with stage 3 chronic k*11/27/2009 Pain in joint, shoulder region [M25.519] 12/07/2009 01/29/2020 SK (seborrheic keratosis) [L82.1] 01/26/2011 01/29/2020 AK (actinic keratosis) [L57.0] 01/26/2011 01/29/2020 Skin tags 01/26/2011 03/29/2011 Cutaneous skin tags [L91.8] 03/29/2011 05/24/2018 Occlu (more content not included)... Normal [facility] CNOVon 06-06-2024 CNOV Office Visit (FAMPWS ) -------- PAULACAL Chanell ([id number]) 1945 M Date Time Provider Department 06/06/24 11:20 AM [facility] During your visit today, we recorded the following information about you: Pulse Respiration Blood pressure Weight 71/minute 18/minute 144/68 110.7 kg Carolina Landeros, ÁLVARO.[facility] 06/06/2024 12:14 PM Signed This is a 78 year old male who presents today with: Patient presents with: Edema: Leg swelling. HCTZ stopped in March Hypertension: Follow up HISTORY OF PRESENT ILLNESS: Cal Villanuevaersoll is a 78 year old male. Patient presents with: Edema: Leg swelling. HCTZ stopped in March Hypertension: Follow up DM: Reports overall feeling well. Medication side effects: No. Home sugar checks: Yes. Daughter checks and said they are ok. Hypoglycemic spells: Maybe. Watching diet: No. Unexpected weight loss: Yes. Appetite is decreasing Polyuria, polydipsia: Yes. Incontinent Vision Changes: Unknown. Foot lesions or numbness or pain: No. Since stopping HCTZ, some swelling in legs. Falls. Unsteady gait. Steady weight loss. PAST MEDICAL HISTORY: PAST MEDICAL HISTORY 10/20: Actinic keratosis No date: BPH (benign prostatic hyperplasia) 10/20: Chronic airway obstruction, not elsewhere classified No date: Diabetes (HCC) No date: Diverticulosis of colon (without mention of hemorrhage) 06/07/2018: Ectatic thoracic aorta (HCC) Comment: 06/07/18 Chest CTA: There is atherosclerotic calcification of the thoracic aorta with mild fusiform ectasia of the descending component measuring 3.2 x 3.1 cm 10/20: Impacted cerumen 11/19: Obesity, unspecified 10/19: Other and unspecified hyperlipidemia 10/20: Other symptoms involving cardiovascular system 10/20: Peripheral vascular disease, unspecified (HCC) Comment: R carotid 04/18: Unspecified essential hypertension PAST SURGICAL HISTORY 04-17-14: ARTL CATHJ/CANNULJ MNTR/TRANSFUSION SPX PRQ 40 years ago: COLONOSCOPY FLX DX W/COLLJ SPEC WHEN PFRMD Comment: Colonoscopy 03/02/11: COLONOSCOPY FLX DX W/COLLJ SPEC WHEN PFRMD 10/20: DSTRJ LESION PENIS SIMPLE CHEMICAL No date: PAST SURGICAL HISTORY OF Comment: Skin tag removals - bilateral axillary 10/20: REMOVAL IMPACTED CERUMEN INSTRUMENTATION UNILAT 04-17-14: TEAEC W/PATCH GRF CAROTID VERTB SUBCLAV NECK INC Comment: RIGHT ALLERGIES Patient has no known allergies. MEDICATIONS Current Outpatient Medications Medication Sig atorvastatin (LIPITOR) 80 mg tablet Take 1 tablet by mouth daily at bedtime. For cholesterol. escitalopram oxalate (LEXAPRO) 10 mg tablet Take 1 tablet by mouth once daily. finasteride (PROSCAR) 5 mg tablet Take 1 tablet by mouth once daily. lisinopril (ZESTRIL) 20 mg tablet Take 1 tablet by mouth once daily. metoprolol succinate ER (TOPROL XL) 50 mg 24 hr tablet Take 1 tablet by mouth once daily. clopidogrel (PLAVIX) 75 mg tablet Take 1 tablet by mouth once daily. pioglitazone (ACTOS) 30 mg tablet Take 1 tablet by mouth once daily. melatonin 3 mg tablet Take 1 tablet by mouth daily at bedtime. warfarin (COUMADIN) 5 mg tablet 7.5 mg on Monday, 5 mg all other days or as directed memantine (NAMENDA) 10 mg tablet Take 1 tablet by mouth once daily. glimepiride (AMARYL) 2 mg tablet Take 1 tablet by mouth daily with breakfast. nitroglycerin sublingual (NITROQUICK) 0.4 mg SL tablet Dissolve 1 tablet under the tongue as needed. for chest pain,every 5 min x3 acetaminophen (TYLENOL) 500 mg tablet Take 500 mg by mouth every 8 hours as needed. blood sugar diagnostic (ONETOUCH ULTRA TEST) test strip Test blood sugar(s) one times daily. Dx: 250.00. Insulin: No Lancets (ONE TOUCH DELICA) [facility] lancets Test blood sugar(s) one time daily. Dx: 250.00. Insulin: No No current facility-administered medications for this visit. FAMILY HISTORY Problem Relation Age of Onset Heart Mother of CHF Stroke Maternal Grandfather Social History Tobacco Use Smoking status: Former Current packs/day: 0.00 Average packs/day: 2.0 packs/day for 10.0 years (20.0 ttl pk-yrs) Types: Cigarettes Start date: 12/05/1975 Quit date: 12/05/1985 Years since quittin.5 Smokeless tobacco: Never Vaping Use Vaping status: Never Used Substance Use Topics Alcohol use: No Comment: none now; social in past Drug use: No EXAM: BP 144/68 Pulse 71 Resp 18 Wt 110.7 kg (244 lb) SpO2 99% BMI 36.03 kg/m? 126/56 sitting, 130/56 standing PHYSICAL EXAM: Physical Exam Vitals reviewed. Constitutional: Appearance: Normal appearance. He is obese. HENT: Head: Normocephalic. Neck: Vascular: Carotid bruit present. Comments: Gray. Carotid murmur likely deferred from aortic stenosis Cardiovascular: Rate and Rhythm: Normal rate and regular rhythm. Heart sounds: Murmur heard. Pulmonary: Effort: Pulmonary effort is normal. Breath sounds: Normal breath so (more content not included)... Normal [facility] CNOVon 06-05-2024 CNOV Office Visit (UCWSTR ) -------- CAL MITCHELL ([id number]) 1945 M Date Time Provider Department 06/05/24 5:00 PM VALERIE GRUBER [facility] During your visit today, we recorded the following information about you: Temperature Pulse Respiration Blood pressure 96.6 degrees 75/minute 19/minute 140/70 Weight 110.7 kg Valerie Gruber APRN.CNP 06/05/2024 5:16 PM Signed This note was created using Curex.Coriter. Subjective Cal Mitchell is a 78 year old male. 78 year old male with PMH HTN, hyperlipidemia, afib, PAD, CKD, DM presents for medical complaints. Acute onset of symptoms was over a week ago Patients daughter had sent in a Janalakshmi message on 06/03/24. At that time she expressed his bilateral leg swelling and inquiring into whether or not medicines need adjusted. On 06/04/24 Corrina Lennon asked for patient to be seen in office this week. Nursing staff reached out today at 4 pm. They wanted an appointment this evening, but none available. Patient presents with his son in law " they told me to come to express care" Son in law states that his medicines " I forget which one" were changed. He is requesting that The history is provided by the patient. No application integration specialist was used. Edema This is a new problem. The current episode started 1 to 4 weeks ago. The problem occurs constantly. The problem has been unchanged. Pertinent negatives include no abdominal pain, arthralgias, chest pain, congestion, coughing, fatigue, fever, headaches, myalgias, nausea, rash or vomiting. Nothing aggravates the symptoms. He has tried nothing for the symptoms. The treatment provided no relief. PAST MEDICAL HISTORY 10/20: Actinic keratosis No date: BPH (benign prostatic hyperplasia) 10/20: Chronic airway obstruction, not elsewhere classified No date: Diabetes (HCC) No date: Diverticulosis of colon (without mention of hemorrhage) 06/07/2018: Ectatic thoracic aorta (HCC) Comment: 06/07/18 Chest CTA: There is atherosclerotic calcification of the thoracic aorta with mild fusiform ectasia of the descending component measuring 3.2 x 3.1 cm 10/20: Impacted cerumen 11/19: Obesity, unspecified 10/19: Other and unspecified hyperlipidemia 10/20: Other symptoms involving cardiovascular system 10/20: Peripheral vascular disease, unspecified (HCC) Comment: R carotid 04/18: Unspecified essential hypertension PAST SURGICAL HISTORY 04-17-14: ARTL CATHJ/CANNULJ MNTR/TRANSFUSION SPX PRQ 40 years ago: COLONOSCOPY FLX DX W/COLLJ SPEC WHEN PFRMD Comment: Colonoscopy 03/02/11: COLONOSCOPY FLX DX W/COLLJ SPEC WHEN PFRMD 10/20: DSTRJ LESION PENIS SIMPLE CHEMICAL No date: PAST SURGICAL HISTORY OF Comment: Skin tag removals - bilateral axillary 10/20: REMOVAL IMPACTED CERUMEN INSTRUMENTATION UNILAT 04-17-14: TEAEC W/PATCH GRF CAROTID VERTB SUBCLAV NECK INC Comment: RIGHT ALLERGIES Patient has no known allergies. MEDICATIONS atorvastatin (LIPITOR) 80 mg tablet Take 1 tablet by mouth daily at bedtime. For cholesterol. escitalopram oxalate (LEXAPRO) 10 mg tablet Take 1 tablet by mouth once daily. finasteride (PROSCAR) 5 mg tablet Take 1 tablet by mouth once daily. lisinopril (ZESTRIL) 20 mg tablet Take 1 tablet by mouth once daily. metoprolol succinate ER (TOPROL XL) 50 mg 24 hr tablet Take 1 tablet by mouth once daily. clopidogrel (PLAVIX) 75 mg tablet Take 1 tablet by mouth once daily. pioglitazone (ACTOS) 30 mg tablet Take 1 tablet by mouth once daily. melatonin 3 mg tablet Take 1 tablet by mouth daily at bedtime. warfarin (COUMADIN) 5 mg tablet 7.5 mg on Monday, 5 mg all other days or as directed memantine (NAMENDA) 10 mg tablet Take 1 tablet by mouth once daily. glimepiride (AMARYL) 2 mg tablet Take 1 tablet by mouth daily with breakfast. nitroglycerin sublingual (NITROQUICK) 0.4 mg SL tablet Dissolve 1 tablet under the tongue as needed. for chest pain,every 5 min x3 acetaminophen (TYLENOL) 500 mg tablet Take 500 mg by mouth every 8 hours as needed. blood sugar diagnostic (ONETOUCH ULTRA TEST) test strip Test blood sugar(s) one times daily. Dx: 250.00. Insulin: No Lancets (ONE TOUCH DELICA) [facility] lancets Test blood sugar(s) one time daily. Dx: 250.00. Insulin: No FAMILY HISTORY Problem Relation Age of Onset Heart Mother of CHF Stroke Maternal Grandfather Social History Tobacco Use Smoking status: Former Current packs/day: 0.00 Average packs/day: 2.0 packs/day for 10.0 years (20.0 ttl pk-yrs) Types: Cigarettes Start date: 12/05/1975 Quit date: 12/05/1985 Years since quittin.5 Smokeless tobacco: Never Vaping Use Vaping status: Never Used Substance Use Topics Alcohol use: No Comment: none now; social in past Drug use: No Review of Systems Constitutional: Negative for fatigue and fever. HENT: Negative for congestion. Respiratory: Negative for apnea, cough, choking and chest tigh (more content not included)... Normal [facility] CNPNon 05-20-2024 CNPN Telephone (AGCARDPOB ) -------- CAL MITCHELL ([id number]) 1945 M Date Time Provider Department 05/20/24 PAM REDDY AGCARDPOB During your visit today, we recorded the following information about you: Chely Nicolas RN 05/20/2024 9:58 AM Signed ----- Message from Pam Reddy MD sent at 05/18/2024 8:44 AM EDT ----- Aortic stenosis need to establish care at the valve clinic Chely Zeng RN 05/20/2024 10:00 AM Signed Left message on voicemail requesting pt return call for test results. Office phone number provided. BENJIE Batres Stacey, RN 05/20/2024 2:46 PM Signed ----- Message from Josselyn Mayer APRN.PITCH WORKER sent at 05/20/2024 2:28 PM EDT ----- Creatinine 2.3. Per chart review he was asymptomatic but had an episode of syncope. Do you want work up first or just valve clinic? Josselyn ----- Message ----- From: Pam Reddy MD Sent: 05/18/2024 8:44 AM EDT To: Chely Nicolas RN; Josselyn Mayer APRN.PITCH WORKER Aortic stenosis need to establish care at the valve clinic Chely Zeng RN 05/23/2024 8:26 AM Signed Pam Reddy MD You; Josselyn Mayer, [employer].CNP15 hours ago (4:42 PM) Let's see at the valve clinic Chely Zeng RN 05/23/2024 8:28 AM Signed Left message on voicemail requesting pt return call for test results and MD recommendations. Office phone number provided. BENJIE Batres Stacey, RN 05/23/2024 9:50 AM Signed Gladys Bella31 minutes ago (9:17 AM) TR Good Morning. Pt is scheduled for Valve Clinic on 07/10/24 at 8:30 am per Josselyn. Allergies As of Date: 05/20/2024 (No Known Allergies) Date Reviewed: 05/06/2024 Reviewed by: Twin Garcia LPN - Fully Assessed Reason for Visit: Results [95] Prescriptions as of 05/23/2024 - atorvastatin (LIPITOR) 80 mg tablet Take 1 tablet by mouth daily at bedtime. For cholesterol. - escitalopram oxalate (LEXAPRO) 10 mg tablet Take 1 tablet by mouth once daily. - finasteride (PROSCAR) 5 mg tablet Take 1 tablet by mouth once daily. - lisinopril (ZESTRIL) 20 mg tablet Take 1 tablet by mouth once daily. - metoprolol succinate ER (TOPROL XL) 50 mg 24 hr tablet Take 1 tablet by mouth once daily. - clopidogrel (PLAVIX) 75 mg tablet Take 1 tablet by mouth once daily. - pioglitazone (ACTOS) 30 mg tablet Take 1 tablet by mouth once daily. - melatonin 3 mg tablet Take 1 tablet by mouth daily at bedtime. - warfarin (COUMADIN) 5 mg tablet 7.5 mg on Monday, 5 mg all other days or as directed - memantine (NAMENDA) 10 mg tablet Take 1 tablet by mouth once daily. - glimepiride (AMARYL) 2 mg tablet Take 1 tablet by mouth daily with breakfast. - nitroglycerin sublingual (NITROQUICK) 0.4 mg SL tablet Dissolve 1 tablet under the tongue as needed. for chest pain,every 5 min x3 - acetaminophen (TYLENOL) 500 mg tablet Take 500 mg by mouth every 8 hours as needed. - blood sugar diagnostic (ONETOUCH ULTRA TEST) test strip Test blood sugar(s) one times daily. Dx: 250.00. Insulin: No - Lancets (ONE TOUCH DELICA) [facility] lancets Test blood sugar(s) one time daily. Dx: 250.00. Insulin: No Problem List As Of Date 05/20/2024 Noted Resolved Hyperlipidemia, mixed [E78.2] Essential hypertension [I10] Peripheral arterial disease (HCC) [I73.9] Other symptoms involving cardiovascular system * 07/20/2016 ACTINIC KERATOSIS [L57.0] 10/12/2005 IMPACTED CERUMEN [H61.20] 10/12/2005 COPD (chronic obstructive pulmonary disease) (H* 01/29/2020 OBESITY NOS [E66.9] Dysmetabolic Syndrome X [E88.810] 06/24/2005 11/27/2009 OTHER ABNORMAL GLUCOSE [R73.09] 10/12/2005 10/02/2006 PAIN IN LIMB [M79.609] 02/15/2008 04/22/2009 Type 2 diabetes mellitus with stage 3 chronic k*11/27/2009 Pain in joint, shoulder region [M25.519] 12/07/2009 01/29/2020 SK (seborrheic keratosis) [L82.1] 01/26/2011 01/29/2020 AK (actinic keratosis) [L57.0] 01/26/2011 01/29/2020 Skin tags 01/26/2011 03/29/2011 Cutaneous skin tags [L91.8] 03/29/2011 05/24/2018 Occlusion and stenosis of unspecified carotid a*10/25/2013 03/26/2024 Frequency [[id number]] 02/11/2016 03/26/2024 BPH (benign prostatic hypertrophy) with urinary*02/11/2016 Adhesive capsulitis of right shoulder [M75.01] 05/15/2018 Aortic stenosis [I35.0] 05/24/2018 CKD (chronic kidney disease) stage 3, GFR 30-59*05/24/2018 03/26/2024 Lung nodule [R91.1] 06/07/2018 Ectatic thoracic aorta (HCC) [I77.810] 06/07/2018 Paroxysmal atrial fibrillation (HCC) [I48.0] 03/05/2019 Inflamed seborrheic keratosis [L82.0] 03/14/2019 08/14/2023 Neoplasm of uncertain behavior of skin [D48.5] 03/14/2019 08/14/2023 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 Normal [facility] CNPN Telephone (AGCARDPOB ) -------- CAL MITCHELL ([id number]) 1945 M Date Time Provider Department 05/20/24 JOSSELYN MAYER AGCARDPOB During your visit today, we recorded the following information about you: Josselyn Mayer, [employer].PITCH WORKER 05/20/2024 2:34 PM Signed Attempted to call patient to arrange for valve clinic appt. No answer. Requested return phone call. Urban, Please call patient and schedule patient for Valve Clinic 07/10/25 at 8:[address] Reddy - Patient needs to arrive by 8:15 am Creatinine 2.3 currently. Will defer any further work up until valve clinic appt. Patient needs to establish care with Nephrologists. Thank you, Josselyn Mayer, ÁLVARO.Claritza Brice 05/21/2024 3:11 PM Signed Patient's son in law called in to confirm appointment with Dr. Reddy. Thanks Claritza Sarah Hardin Allergies As of Date: 05/20/2024 (No Known Allergies) Date Reviewed: 05/06/2024 Reviewed by: Twin Garcia LPN - Fully Assessed Reason for Visit: Switch Coupler - Other [3602] Prescriptions as of 07/22/2024 - iv contrast (will be provided with radiology test) CTA ABD/PEL - No IV access, insert saline lock prior to the sedation, infusion, injection for imaging exam. Discontinue saline lock post exam. If Pt. has a central line or IVAD, may access for administration according to line specific nursing protocol. Once exam is complete flush line and de-access according to line specific nursing protocol in the CT contrast administration guidelines link. - enoxaparin (LOVENOX) 100 mg/mL syrg Inject 1 mL subcutaneously once daily. Inject entire contents of one(1) syringe - atorvastatin (LIPITOR) 80 mg tablet Take 1 tablet by mouth daily at bedtime. For cholesterol. - escitalopram oxalate (LEXAPRO) 10 mg tablet Take 1 tablet by mouth once daily. - finasteride (PROSCAR) 5 mg tablet Take 1 tablet by mouth once daily. - lisinopril (ZESTRIL) 20 mg tablet Take 1 tablet by mouth once daily. - metoprolol succinate ER (TOPROL XL) 50 mg 24 hr tablet Take 1 tablet by mouth once daily. - clopidogrel (PLAVIX) 75 mg tablet Take 1 tablet by mouth once daily. - warfarin (COUMADIN) 5 mg tablet 7.5 mg on Monday, 5 mg all other days or as directed - memantine (NAMENDA) 10 mg tablet Take 1 tablet by mouth once daily. - nitroglycerin sublingual (NITROQUICK) 0.4 mg SL tablet Dissolve 1 tablet under the tongue as needed. for chest pain,every 5 min x3 - acetaminophen (TYLENOL) 500 mg tablet Take 500 mg by mouth every 8 hours as needed. - blood sugar diagnostic (ONETOUCH ULTRA TEST) test strip Test blood sugar(s) one times daily. Dx: 250.00. Insulin: No - Lancets (ONE TOUCH DELICA) [facility] lancets Test blood sugar(s) one time daily. Dx: 250.00. Insulin: No Problem List As Of Date 05/20/2024 Noted Resolved Hyperlipidemia, mixed [E78.2] Essential hypertension [I10] Peripheral arterial disease (HCC) [I73.9] Other symptoms involving cardiovascular system * 07/20/2016 ACTINIC KERATOSIS [L57.0] 10/12/2005 IMPACTED CERUMEN [H61.20] 10/12/2005 COPD (chronic obstructive pulmonary disease) (H* 01/29/2020 OBESITY NOS [E66.9] Dysmetabolic Syndrome X [E88.810] 06/24/2005 11/27/2009 OTHER ABNORMAL GLUCOSE [R73.09] 10/12/2005 10/02/2006 PAIN IN LIMB [M79.609] 02/15/2008 04/22/2009 Type 2 diabetes mellitus with stage 3 chronic k*11/27/2009 Pain in joint, shoulder region [M25.519] 12/07/2009 01/29/2020 SK (seborrheic keratosis) [L82.1] 01/26/2011 01/29/2020 AK (actinic keratosis) [L57.0] 01/26/2011 01/29/2020 Skin tags 01/26/2011 03/29/2011 Cutaneous skin tags [L91.8] 03/29/2011 05/24/2018 Occlusion and stenosis of unspecified carotid a*10/25/2013 03/26/2024 Frequency [[id number]] 02/11/2016 03/26/2024 BPH (benign prostatic hypertrophy) with urinary*02/11/2016 Adhesive capsulitis of right shoulder [M75.01] 05/15/2018 Aortic stenosis [I35.0] 05/24/2018 CKD (chronic kidney disease) stage 3, GFR 30-59*05/24/2018 03/26/2024 Lung nodule [R91.1] 06/07/2018 Ectatic thoracic aorta (HCC) [I77.810] 06/07/2018 Paroxysmal atrial fibrillation (HCC) [I48.0] 03/05/2019 Inflamed seborrheic keratosis [L82.0] 03/14/2019 08/14/2023 Neoplasm of uncertain behavior of skin [D48.5] 03/14/2019 08/14/2023 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 (more content not included)... [facility] -------- CAL MITCHELL ([id number]) 1945 M Date Time Provider Department 05/17/24 DOROTHY SAINZ During your visit today, we recorded the following information about you: Dorothy Sainz RPh 05/17/2024 9:25 AM Signed [facility] Anticoagulation Episode Summary Anticoagulation Care Providers Provider Role Specialty Phone number Guanakito Reno MD [facility] [phone] Cal Mitchell is a 78 year old year old male patient being evaluated today for a Telemanagement visit. Patient is currently on the following anticoagulant(s) Warfarin. Labs PT INR (no units) Date Value 09/28/2022 1.9 (self reporting) 01/24/2022 2.1 biotel 10/26/2021 2.1 (Biotel) INR Home CoaguChek (no units) Date Value 05/16/2024 2.8 04/23/2024 2.7 04/08/2024 2.3 Hemoglobin (g/dL) Date Value 04/19/2024 9.5 10/06/2020 12.3 Hematocrit (%) Date Value 04/19/2024 32.3 10/06/2020 39.0 Platelet Count (k/uL) Date Value 04/19/2024 160 10/06/2020 189 Creatinine (mg/dL) Date Value 04/19/2024 2.35 04/04/2024 2.61 03/25/2024 2.48 10/06/2020 1.60 07/18/2019 1.46 03/18/2019 1.51 Bilirubin, Total (mg/dL) Date Value 03/25/2024 0.3 10/06/2020 0.4 ALT (U/L) Date Value 03/25/2024 15 10/06/2020 16 AST (U/L) Date Value 03/25/2024 19 10/06/2020 17 Estimated Creatinine Clearance: 31.6 mL/min (A) (based on SCr of 2.35 mg/dL (H)). 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 Jimmy Carrizales [facility] 05/30/2024 3:39 PM Signed Patient was due to test INR today. Will continue to monitor for results. Follow up in one week if no results received. Jimmy Carrizales Jimmy Barclay [facility] 06/06/2024 2:34 PM Signed Cal Mitchell was called, lvmx and reminded to test INR today or as soon as possible. Jimmy Carrizales RPh Sofie Jimmy Sarah [facility] 06/13/2024 11:42 AM Signed Cal Mitchell was called, lvmx and reminded to test INR today or as soon as possible. Jimmy Carrizales [facility] Daniel (Spray Drier Operator Helper)Ashley 06/13/2024 5:04 PM Signed DISCHARGE No return call from patient. Letter sent. FINAL ATTEMPT letter sent at this time. If no response from patient within 3 weeks, patient will be discharged from PAC at that time. Will also route to referring MD as FYI and to see if office can assist in reaching patient. Ashley Sanchez CPhT (Home And School Visitor) Pharmacy Anticoagulation Clinic' Allergies As of Date: 05/17/2024 (No Known Allergies) Date Reviewed: 05/06/2024 Reviewed by: Twin Garcia LPN - Fully Assessed Reason for Visit: Anticoagulation Telephone Fu [[id number]] Primary Visit Diagnosis: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 [Z79.01] Other Visit Diagnosis:Paroxysmal atrial fibrillation (HCC) [I48.0] Prescriptions as of 06/13/2024 - atorvastatin (LIPITOR) 80 mg tablet Take 1 tablet by mouth daily at bedtime. For cholesterol. - escitalopram oxalate (LEXAPRO) 10 mg tablet Take 1 tablet by mouth once daily. - finasteride (PROSCAR) 5 mg tablet Take 1 tablet by mouth once daily. - lisinopril (ZESTRIL) 20 mg tablet Take 1 tablet by mouth once daily. - metoprolol succinate ER (TOPROL XL) 50 mg 24 hr tablet Take 1 tablet by mouth once daily. - clopidogrel (PLAVIX) 75 mg tablet Take 1 tablet by mouth once daily. - warfarin (COUMADIN) 5 mg tablet 7.5 mg on Monday, 5 mg all other days or as directed - memantine (NAMENDA) 10 mg tablet Take 1 tablet by mouth once daily. - glimepiride (AMARYL) 2 mg tablet Take 1 tablet by mouth daily with breakfast. - nitroglycerin sublingual (NITROQUICK) 0.4 mg SL tablet Dissolve 1 tablet under the tongue as needed. for chest pain,every 5 min x3 - acetaminophen (TYLENOL) 500 mg tablet Take 500 mg by mouth every 8 hours as needed. - blood sugar diagnostic (MyTrainerUCH ULTRA TEST) test strip Test blood sugar(s) one times daily. Dx: 250.00. Insulin: No - Lancets (ONE TOUCH DELICA) Misc lancets Test blood sugar(s) one time daily. Dx: 250.00. Insulin: No Problem List As Of Date 05/17/2024 Noted Resolved Hyperlipidemia, mixed [E78.2] Essential hypertension [I10] Peripheral arterial disease (HCC) [I73.9] Other symptoms involving cardiovascular system * 07/20/2016 ACTI (more content not included)... Normal [facility] Kidney - bilateral and Ur inary bladderon 05-02-2024 IMPRESSION: No hydronephrosis. Cholelithiasis. Dental Laboratory Technician Apprentice: PSCB Transcribe Date/Time: May 02 2024 7:17P Dictated by : TIN COTTER DO This examination was interpreted and the report reviewed and electronically signed by: TIN COTTER DO on May 02 2024 7:19PM [facility] DIVISION OF RADIOLOGY * * *Final Report* * * DATE OF EXAM: May 02 2024 10:49AM WRU 1055 - US KIDNEY/BLADDER / PROCEDURE REASON: Renal insufficiency * * * * Physician Interpretation * * * * EXAMINATION: RENAL ULTRASOUND CLINICAL HISTORY: 78 years old Male with Renal insufficiency TECHNIQUE: Sonography of the kidneys and urinary bladder was performed. Images were obtained and stored in a permanent archive. MQ: UR_1 COMPARISON: CT 06/06/2018 RESULT: Right Kidney: -Renal length: 9.5 cm -Parenchyma: Normal parenchymal echogenicity. Normal parenchymal thickness. -Collecting system: No hydronephrosis. -Calculus: No echogenic, shadowing calculus. -Lesion: None. Left Kidney: -Renal length: 10.2 cm -Parenchyma: Normal parenchymal echogenicity. Normal parenchymal thickness. -Collecting system: No hydronephrosis. -Calculus: No echogenic, shadowing calculus. -Lesion: None. Bladder: Normal sonographic appearance with prevoid bladder volume of 107 mm.. Incidentally noted cholelithiasis. DIVISION OF RADIOLOGY Provider, [facility] - 05/02/2024 * * *Final Report* * * DATE OF EXAM: May 02 2024 10:49AM WRU 1055 - US KIDNEY/BLADDER / PROCEDURE REASON: Renal insufficiency * * * * Physician Interpretation * * * * EXAMINATION: RENAL ULTRASOUND CLINICAL HISTORY: 78 years old Male with Renal insufficiency TECHNIQUE: Sonography of the kidneys and urinary bladder was performed. Images were obtained and stored in a permanent archive. MQ: UR_1 COMPARISON: CT 06/06/2018 RESULT: Right Kidney: -Renal length: 9.5 cm -Parenchyma: Normal parenchymal echogenicity. Normal parenchymal thickness. -Collecting system: No hydronephrosis. -Calculus: No echogenic, shadowing calculus. -Lesion: None. Left Kidney: -Renal length: 10.2 cm -Parenchyma: Normal parenchymal echogenicity. Normal parenchymal thickness. -Collecting system: No hydronephrosis. -Calculus: No echogenic, shadowing calculus. -Lesion: None. Bladder: Normal sonographic appearance with prevoid bladder volume of 107 mm.. Incidentally noted cholelithiasis. IMPRESSION IMPRESSION: No hydronephrosis. Cholelithiasis. Dental Laboratory Technician Apprentice: MAC Transcribe Date/Time: May 02 2024 7:17P Dictated by : TIN COTTER DO This examination was interpreted and the report reviewed and electronically signed by: TIN COTTER DO on May 02 2024 7:19PM [facility] Radiology Study observation (narrative) Alexx Lopes US Kidney - bilateral and Ur inary bladderOrdered By: Ccf Provider on 05-02-2024 [facility] NT PRO BNPon 03-26-2024 Natriuretic peptide.B prohormone N-Terminal [Mass/Vol] 501 pg/mL High NINF - 450 pg/mL [facility] Natriuretic peptide.B prohor jodie N-Terminal [Mass/Vol]on 03-26-2024 Interpretation and review of laboratory results Abnormal [facility] THYROID STIMULATING HORMONEo n 03-26-2024 TSH Qn 2.950 m[IU]/L [facility] TSH Qnon 03-26-2024 Interpretation and review of laboratory results Normal [facility] CBC panel Auto (Bld)on 03-25 Erythrocyte distribution width (RBC) [Ratio] 14.9 % 11.5 - 15.0 % [facility] Hematocrit (Bld) [Volume fraction] 31.8 % Low 39.0 - 51.0 % [facility] Hemoglobin (Bld) [Mass/Vol] 9.6 g/dL Low 13.0 - 17.0 g/dL [facility] Interpretation and review of laboratory results Abnormal [facility] MCH (RBC) [Entitic mass] 30.9 pg 26.0 - 34.0 pg [facility] MCHC (RBC) [Mass/Vol] 30.2 g/dL Low 30.5 - 36.0 g/dL [facility] MCV (RBC) [Entitic vol] 102.3 fL High 80.0 - 100.0 fL [facility] Nucleated RBC (Bld) [#/Vol] NINF [facility] Platelet mean volume (Bld) [Entitic vol] 9.8 fL 9.0 - 12.7 fL [facility] Platelets (Bld) [#/Vol] 158 10*3/uL [facility] RBC (Bld) [#/Vol] 3.11 10*6/uL Low 4.20 - 6.0 0 m/uL [facility] WBC (Bld) [#/Vol] 4.72 10*3/uL [facility] Comprehensive metabolic 2000 panelOrdered By: Haley Marie on 03-25-2024 Albumin [Mass/Vol] 3.7 g/dL Low 3.9 - 4.9 g/dL [facility] ALP [Catalytic activity/Vol] 109 U/L 38 - 113 U/L [facility] ALT [Catalytic activity/Vol] 15 U/L 10 - 54 U/L [facility] Anion gap [Moles/Vol] 12 mmol/L 8 - 15 mmol/L [facility] AST [Catalytic activity/Vol] 19 U/L 14 - 40 U/L [facility] Bilirubin [Mass/Vol] 0.3 mg/dL 0.2 - 1 .3 mg/dL [facility] Calcium [Mass/Vol] 8.6 mg/dL 8.5 - 10. 2 mg/dL [facility] Chloride [Moles/Vol] 113 mmol/L High 98 - 10 7 mmol/L [facility] CO2 [Moles/Vol] 16 mmol/L Low 22 - 30 mmol/L [facility] Creatinine [Mass/Vol] 2.48 mg/dL High 0.73 - 1.22 mg/dL [facility] GFR/1.73 sq M.predicted among non-blacks MDRD (S/P/Bld) [Vol rate/Area] 26 mL/min/{1.73_m2} Low - PINF [facility] 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: Estimated Glomerular Filtration Rate (eGFR) is calculated using the 2020 CKD-EPI creatinine equation. This equation utilizes serum creatinine, sex, and age as parameters. The creatinine assay has traceable calibration to isotope dilution-mass spectrometry. Refer to KDIGO guidelines for clinical interpretation. In patients with unstable renal function, e.g. those with acute kidney injury, the eGFR may not accurately reflect actual GFR. Glucose [Mass/Vol] 99 mg/dL 74 - 99 mg/dL [facility] 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: The [place] Di[employer] Association (ADA) provides guidance for cutoff values for fasting glucose and random glucose. The ADA defines fasting as no caloric intake for at least 8 hours. Fasting plasma glucose results between 100 to 125 mg/dL indicate increased risk for diabetes (prediabetes). Fasting plasma glucose results greater than or equal to 126 mg/dL meet the criteria for diagnosis of diabetes. In the absence of unequivocal hyperglycemia, results should be confirmed by repeat testing. In a patient with classic symptoms of hyperglycemia or hyperglycemic crisis, random plasma glucose results greater than or equal to 200 mg/dL meet the criteria for diagnosis of diabetes. Reference: Standards of Medical Care in Diabetes 2016, [place] [employer]. Diabetes Care. 2016.39(Suppl 1). Interpretation and review of laboratory results Abnormal [facility] Potassium [Moles/Vol] 4.4 mmol/L 3.7 - 5.1 mmol/L [facility] Protein [Mass/Vol] 6.4 g/dL 6.3 - 8.0 g/dL [facility] Sodium [Moles/Vol] 141 mmol/L 136 - 144 mmol/L [facility] Urea nitrogen [Mass/Vol] 49 mg/dL High 9 - 24 mg/dL [facility] ALBUMIN/CREAT RATIO RND URon 08-14-2023 Albumin DL <= 20 mg/L (U) [Mass/Vol] 26.7 mg/L [facility] Albumin/Creatinine (U) [Mass ratio] 27 mg/g <30 mg/g [facility] Creatinine (U) [Mass/Vol] 98.9 mg/dL 20.0 - 300.0 mg/dL [facility] CBC W Auto Differential pane l (Bld)on 08-14-2023 Basophils (Bld) [#/Vol] 0.05 10*3/uL <0.11 k/uL [facility] Basophils/100 WBC (Bld) 0.9 % C [facility] Differential cell count method Nom (Bld) Auto [facility] Eosinophils (Bld) [#/Vol] 0.44 10*3/uL <0.46 k/uL [facility] Eosinophils/100 WBC (Bld) 8.3 % [facility] Erythrocyte distribution width (RBC) [Ratio] 14.5 % 11.5 - 15.0 % [facility] Hematocrit (Bld) [Volume fraction] 38.6 % Low 39.0 - 51.0 % [facility] Hemoglobin (Bld) [Mass/Vol] 11.7 g/dL Low 13.0 - 17.0 g/dL [facility] Immature granulocytes (Bld) [#/Vol] <0.10 k/uL [facility] Immature granulocytes/100 WBC (Bld) 0.4 % [facility] Lymphocytes (Bld) [#/Vol] 1.18 10*3/uL 1.00 - 4.00 k/uL [facility] Lymphocytes/100 WBC (Bld) 22.1 % [facility] MCH (RBC) [Entitic mass] 31.3 pg 26.0 - 34.0 pg [facility] MCHC (RBC) [Mass/Vol] 30.3 g/dL Low 30.5 - 36.0 g/dL [facility] MCV (RBC) [Entitic vol] 103.2 fL High 80.0 - 100.0 fL [facility] Monocytes (Bld) [#/Vol] 0.42 10*3/uL <0.87 k/uL [facility] Monocytes/100 WBC (Bld) 7.9 % C [facility] Neutrophils (Bld) [#/Vol] 3.22 10*3/uL 1.45 - 7.50 k/uL [facility] Neutrophils/100 WBC (Bld) 60.4 % [facility] Nucleated RBC (Bld) [#/Vol] <0.01 k/uL [facility] Nucleated RBC/100 WBC (Bld) [Ratio] 0.0 /100 WBC [facility] Platelet mean volume (Bld) [Entitic vol] 10.5 fL 9.0 - 12.7 fL [facility] Platelets (Bld) [#/Vol] 144 10*3/uL Low 150 - 400 k/uL [facility] RBC (Bld) [#/Vol] 3.74 10*6/uL Low 4.20 - 6.0 0 m/uL [facility] WBC (Bld) [#/Vol] 5.33 10*3/uL 3.70 - 11.00 k/uL [facility] Comprehensive metabolic 2000 panelon 08-14-2023 Albumin [Mass/Vol] 4.1 g/dL 3.9 - 4.9 g/dL [facility] ALP [Catalytic activity/Vol] 111 U/L 38 - 113 U/L [facility] ALT [Catalytic activity/Vol] 21 U/L 10 - 54 U/L [facility] Anion gap [Moles/Vol] 11 mmol/L 9 - 18 mmol/L [facility] AST [Catalytic activity/Vol] 26 U/L 14 - 40 U/L [facility] Bilirubin [Mass/Vol] 0.5 mg/dL 0.2 - 1 .3 mg/dL [facility] Calcium [Mass/Vol] 8.8 mg/dL 8.5 - 10. 2 mg/dL [facility] Chloride [Moles/Vol] 106 mmol/L High 97 - 10 5 mmol/L [facility] CO2 [Moles/Vol] 24 mmol/L 22 - 30 mmol/L [facility] Creatinine [Mass/Vol] 2.30 mg/dL High 0.73 - 1.22 mg/dL [facility] Estimated Glomerular Filtration Rate 28 mL/min/1.73m Low >=60 mL/min/1.73 m [facility] Glucose [Mass/Vol] 113 mg/dL High 74 - 99 mg/dL [facility] Potassium [Moles/Vol] 4.6 mmol/L 3.7 - 5.1 mmol/L [facility] Protein [Mass/Vol] 7.0 g/dL 6.3 - 8.0 g/dL [facility] Sodium [Moles/Vol] 141 mmol/L 136 - 144 mmol/L [facility] Urea nitrogen [Mass/Vol] 28 mg/dL High 9 - 24 mg/dL [facility] HbA1c (Bld)on 08-14-2023 Average glucose Estimated from glycated hemoglobin (Bld) [Mass/Vol] 108 mg/dL [facility] HbA1c (Bld) [Mass fraction] 5.4 % 4.3 - 5.6 % [facility] Lipid 1996 panelon Cholesterol [Mass/Vol] 165 mg/dL <200 mg/dL [facility] Cholesterol in HDL [Mass/Vol] 44 mg/dL >39 mg/dL [facility] Cholesterol in LDL [Mass/Vol] 100 mg/dL High <100 mg/dL [facility] Cholesterol in LDL/Cholesterol in HDL [Mass ratio] 2.27 {ratio} <2.54 [facility] Cholesterol in VLDL [Mass/Vol] 21 mg/dL <30 mg/dL [facility] Cholesterol non HDL [Mass/Vol] 121 mg/dL <130 mg/dL [facility] Cholesterol.total/Julia sterol in HDL [Mass ratio] 3.75 {ratio} <5.10 [facility] Fasting Time 14 hrs [facility] Triglyceride [Mass/Vol] 106 mg/dL <150 mg/dL [facility] INR FINGERSTICK B/Oon 2021 INR Coag (Bld) [Relative time] 1.9 (self reporting) [facility] INR FINGERSTICK B/Oon 2021 INR Coag (Bld) [Relative time] 2.1 biotel [facility] Quality Check No [facility] Vital Signs Date Time Vital Sign Value Performing Clinician Facility 03-07-2025 12:57-0400 Body height 177.[address] Guanakito Reno MD Work Phone: [facility] 03-07-2025 12:57-0400 Body mass index (BMI) [Ratio] 35.9 kg/m2 Dr. Guanakito Reno MD Work Phone: [facility] 03-07-2025 12:57-0400 Body weight 113.[address] Guanakito Reno MD Work Phone: [facility] 01-21-2025 15:33-0400 Body mass index (BMI) [Ratio] 37.02 kg/m2 Carolina Landeros APRN.CNP Work Phone: [facility] 01-21-2025 15:33-0400 Body temperature 97.59 [degF] Carolina Suppan [employer]PITCH WORKER Work Phone: [facility] 01-21-2025 15:33-0400 Body weight 117.03 kg Carolina Suppan [employer].PITCH WORKER Work Phone: [facility] 01-21-2025 15:33-0400 Diastolic blood pressure 60 mm[Hg] Carolina Suppan [employer].PITCH WORKER Work Phone: [facility] 01-21-2025 15:33-0400 Heart rate 59 /min Carolina Suppan [employer].PITCH WORKER Work Phone: [facility] 01-21-2025 15:33-0400 SaO2% (BldA) [Mass fraction] 97 % Carolina Suppan [employer].PITCH WORKER Work Phone: [facility] 01-21-2025 15:33-0400 Systolic blood pressure 122 mm[Hg] Carolina Suppan [employer].PITCH WORKER Work Phone: [facility] 08-06-2024 12:57-0400 Body height 177.8 cm Laura Iraheta MD Work Phone: [facility] 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: patient reports 08-06-2024 12:57-0400 Body mass index (BMI) [Ratio] 34.44 kg/m2 Laura Iraheta MD Work Phone: [facility] 08-06-2024 12:57-0400 Body weight 108.86 kg Laura Iraheta MD Work Phone: [facility] 08-06-2024 12:57-0400 Diastolic blood pressure 68 mm[Hg] Laura Iraheta MD Work Phone: [facility] 08-06-2024 12:57-0400 Heart rate 61 /min Laura Iraheta MD Work Phone: [facility] 08-06-2024 12:57-0400 SaO2% (BldA) [Mass fraction] 99 % Laura Iraheta MD Work Phone: [facility] 08-06-2024 12:57-0400 Systolic blood pressure 128 mm[Hg] Laura Iraheta MD Work Phone: [facility] 07-12-2024 11:220400 Body height 177.8 cm Guanakito Reno MD Work Phone: [facility] 07-12-2024 11:220400 Body mass index (BMI) [Ratio] 34.55 kg/m2 Guanakito Reno MD Work Phone: [facility] 07-12-2024 11:22-0400 Body weight 109.23 kg Guanakito Reno MD Work Phone: [facility] 07-12-2024 [id number] Diastolic blood pressure 62 mm[Hg] Guanakito Reno MD Work Phone: [facility] 07-12-2024 11:22-0400 Heart rate 59 /min Guanakito Reno MD Work Phone: [facility] 07-12-2024 11:22-0400 Systolic blood pressure 114 mm[Hg] Guanakito Reno MD Work Phone: [facility] 07-10-2024 08:[id number] Body height 177.8 cm Cal Thacker MD Work Phone: [facility] 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: Patient reports 07-10-2024 08:11-0400 Body mass index (BMI) [Ratio] 34.49 kg/m2 Cal Thacker MD Work Phone: [facility] 07-10-2024 08:11-0400 Body weight 109.05 kg Cal Thacker MD Work Phone: [facility] 07-10-2024 08:11-0400 Diastolic blood pressure 70 mm[Hg] Cal Thacker MD Work Phone: [facility] 07-10-2024 08:11-0400 Heart rate 94 /min Cal Thacker MD Work Phone: [facility] 07-10-2024 08:11-0400 SaO2% (BldA) [Mass fraction] 94 % Cal Thacker MD Work Phone: [facility] 07-10-2024 08:11-0400 Systolic blood pressure 120 mm[Hg] Cal Thacker MD Work Phone: [facility] 07-10-2024 08:08-0400 Body height 177.8 cm Pam Reddy MD Work Phone: [facility] 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: Patient reports 07-10-2024 08:08-0400 Body mass index (BMI) [Ratio] 34.49 kg/m2 Pam Reddy MD Work Phone: [facility] 07-10-2024 08:08-0400 Body weight 109.05 kg Pam Reddy MD Work Phone: [facility] 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: Fully clothed with shoes on. 07-10-2024 08:08-0400 Diastolic blood pressure 70 mm[Hg] Pam Reddy MD Work Phone: [facility] 07-10-2024 08:08-0400 Heart rate 94 /min Pam Reddy MD Work Phone: [facility] 07-10-2024 08:08-0400 SaO2% (BldA) [Mass fraction] 94 % Pam Reddy MD Work Phone: [facility] 07-10-2024 08:08-0400 Systolic blood pressure 120 mm[Hg] Pam Reddy MD Work Phone: [facility] 06-06-2024 11:31-0400 Body mass index (BMI) [Ratio] 36.03 kg/m2 Carolina Suppernesto [employer].PITCH WORKER Work Phone: [facility] 06-06-2024 11:31-0400 Body weight 110.68 kg Carolina Suppan [employer].PITCH WORKER Work Phone: [facility] 06-06-2024 11:31-0400 Diastolic blood pressure 68 mm[Hg] Carolina Suppernesto [employer].PITCH WORKER Work Phone: [facility] 06-06-2024 11:31-0400 Heart rate 71 /min Carolina Suppan [employer].PITCH WORKER Work Phone: [facility] 06-06-2024 11:31-0400 Respiratory rate 18 /min Carolina Suppan [employer].PITCH WORKER Work Phone: [facility] 06-06-2024 11:31-0400 SaO2% (BldA) [Mass fraction] 99 % Carolina Suppan [employer].PITCH WORKER Work Phone: [facility] 06-06-2024 11:31-0400 Systolic blood pressure 144 mm[Hg] Carolina Suppan [employer].PITCH WORKER Work Phone: [facility] 06-05-2024 16:41-0400 Body mass index (BMI) [Ratio] 36.04 kg/m2 Valerie Gruber [employer].PITCH WORKER Work Phone: [facility] 06-05-2024 16:41-0400 Body temperature 96.6 [degF] Valerie Gruber [employer].PITCH WORKER Work Phone: [facility] 06-05-2024 16:41-0400 Body weight 110.7 kg Valerie Gruber [employer].PITCH WORKER Work Phone: [facility] 06-05-2024 16:41-0400 Diastolic blood pressure 70 mm[Hg] Valerie Gruber [employer].PITCH WORKER Work Phone: [facility] 06-05-2024 16:41-0400 Heart rate 75 /min Valerie Gruber [employer].PITCH WORKER Work Phone: [facility] 06-05-2024 16:41-0400 Respiratory rate 19 /min Valerie Gruber [employer].PITCH WORKER Work Phone: [facility] 06-05-2024 16:41-0400 SaO2% (BldA) [Mass fraction] 97 % Valerie Gruber [employer].PITCH WORKER Work Phone: [facility] 06-05-2024 16:41-0400 Systolic blood pressure 140 mm[Hg] Valerie Gruber [employer].PITCH WORKER Work Phone: [facility] 05-06-2024 17:38-0400 Body height 175.3 cm Corrina Haagen [employer].PITCH WORKER Work Phone: [facility] 05-06-2024 17:38-0400 Body mass index (BMI) [Ratio] 37.95 kg/m2 Corrina Haagen [employer].PITCH WORKER Work Phone: [facility] 05-06-2024 17:38-0400 Body weight 116.57 kg Corrina Haagen [employer].PITCH WORKER Work Phone: [facility] 05-06-2024 17:38-0400 Diastolic blood pressure 58 mm[Hg] Corrina Haagen [employer].PITCH WORKER Work Phone: [facility] 05-06-2024 17:38-0400 Heart rate 62 /min Corrina Haagen [employer].PITCH WORKER Work Phone: [facility] 05-06-2024 17:38-0400 Respiratory rate 14 /min Corrina Haagen [employer].PITCH WORKER Work Phone: [facility] 05-06-2024 17:38-0400 SaO2% (BldA) [Mass fraction] 89 % Corrina Haagen [employer].PITCH WORKER Work Phone: [facility] 05-06-2024 17:38-0400 Systolic blood pressure 122 mm[Hg] Corrina Haagen [employer].PITCH WORKER Work Phone: [facility] 04-08-2024 15:17-0400 Body mass index (BMI) [Ratio] 37.63 kg/m2 Corrina Haagen [employer].PITCH WORKER Work Phone: [facility] 04-08-2024 15:17-0400 Body weight 115.58 kg Corrina Haagen [employer].PITCH WORKER Work Phone: [facility] 04-08-2024 14:55-0400 Diastolic blood pressure 58 mm[Hg] Corrina Haagen [employer].PITCH WORKER Work Phone: [facility] 04-08-2024 14:55-0400 Heart rate 72 /min Corrina Haagen [employer].PITCH WORKER Work Phone: [facility] 04-08-2024 14:55-0400 Respiratory rate 16 /min Corrina Lennon [employer].PITCH WORKER Work Phone: [facility] 04-08-2024 14:55-0400 Systolic blood pressure 102 mm[Hg] Corrina Lennon [employer].PITCH WORKER Work Phone: [facility] 03-26-2024 16:33-0400 Body height 175.3 cm Guanakito Reno MD Work Phone: [facility] 03-26-2024 16:33-0400 Body mass index (BMI) [Ratio] 37.07 kg/m2 Guanakito Reno MD Work Phone: [facility] 03-26-2024 16:33-0400 Body weight 113.85 kg Guanakito Reno MD Work Phone: [facility] 03-26-2024 16:33-0400 Diastolic blood pressure 46 mm[Hg] Guanakito Reno MD Work Phone: [facility] 03-26-2024 16:33-0400 Heart rate 86 /min Guanakito Reno MD Work Phone: [facility] 03-26-2024 16:33-0400 SaO2% (BldA) [Mass fraction] 98 % Guanakito Reno MD Work Phone: [facility] 03-26-2024 16:33-0400 Systolic blood pressure 98 mm[Hg] Guanakito Reno MD Work Phone: [facility] 03-25-2024 14:52-0400 Body mass index (BMI) [Ratio] 37.21 kg/m2 Pam Reddy MD Work Phone: [facility] 03-25-2024 14:52-0400 Body weight 114.31 kg Pam Reddy MD Work Phone: [facility] 03-25-2024 14:52-0400 Diastolic blood pressure 69 mm[Hg] Pam Reddy MD Work Phone: [facility] 03-25-2024 14:52-0400 Heart rate 66 /min Pam Reddy MD Work Phone: [facility] 03-25-2024 14:52-0400 SaO2% (BldA) [Mass fraction] 96 % Pam Reddy MD Work Phone: [facility] 03-25-2024 14:52-0400 Systolic blood pressure 116 mm[Hg] Pam Reddy MD Work Phone: [facility] 12-22-2023 14:55-0500 Body temperature 97.81 [degF] Carolina Suppan [employer].CLARIFIER Work Phone: [facility] 12-22-2023 14:55-0500 Diastolic blood pressure 60 mm[Hg] Carolina Suppan [employer].CLARIFIER Work Phone: [facility] 12-22-2023 14:55-0500 Heart rate 76 /min Carolina Suppan [employer].CLARIFIER Work Phone: [facility] 12-22-2023 14:55-0500 Respiratory rate 18 /min Carolina Suppan [employer].CLARIFIER Work Phone: [facility] 12-22-2023 14:55-0500 SaO2% (BldA) [Mass fraction] 99 % Carolina Suppan [employer].CLARIFIER Work Phone: [facility] 12-22-2023 14:55-0500 Systolic blood pressure 122 mm[Hg] Carolina Suppan INSPECTOR [employer].CLARIFIER Work Phone: [facility] 08-14-2023 13:24-0400 Body height 175.3 cm Guanakito Reno MD Work Phone: [facility] 08-14-2023 13:24-0400 Body weight 120.75 kg Guanakito Reno MD Work Phone: [facility] 08-14-2023 13:24-0400 Diastolic blood pressure 68 mm[Hg] Guanakito Reno MD Work Phone: [facility] 08-14-2023 13:24-0400 Heart rate 59 /min Guanakito Reno MD Work Phone: [facility] 08-14-2023 13:24-0400 SaO2% (BldA) [Mass fraction] 99 % Guanakito Reno MD Work Phone: [facility] 08-14-2023 13:24-0400 Systolic blood pressure 120 mm[Hg] Guanakito Reno MD Work Phone: [facility] 02-13-2023 14:39-0400 Body weight 119.75 kg Pam Reddy MD Work Phone: [facility] 02-13-2023 14:39-0400 Diastolic blood pressure 60 mm[Hg] Pam Reddy MD Work Phone: [facility] 02-13-2023 14:39-0400 Heart rate 78 /min Pam Reddy MD Work Phone: [facility] 02-13-2023 14:39-0400 SaO2% (BldA) [Mass fraction] 96 % Pam Reddy MD Work Phone: [facility] 02-13-2023 14:39-0400 Systolic blood pressure 110 mm[Hg] Pam Reddy MD Work Phone: [facility] 02-06-2023 15:29-0400 Body weight 118.39 kg Guanakito Reno MD Work Phone: [facility] 02-06-2023 15:29-0400 Diastolic blood pressure 58 mm[Hg] Guanakito Reno MD Work Phone: [facility] 02-06-2023 15:29-0400 Heart rate 76 /min Guanakito Reno MD Work Phone: [facility] 02-06-2023 15:29-0400 Respiratory rate 16 /min Guanakito Reno MD Work Phone: [facility] 02-06-2023 15:29-0400 SaO2% (BldA) [Mass fraction] 94 % Guanakito Reno MD Work Phone: [facility] 02-06-2023 15:29-0400 Systolic blood pressure 122 mm[Hg] Guanakito Reno MD Work Phone: [facility] 10-04-2022 10:38-0500 Body height 175.3 cm Alondra Prescott DO Work Phone: [facility] 10-04-2022 10:38-0500 Body weight 117.03 kg Alondra Prescott DO Work Phone: [facility] 10-04-2022 10:38-0500 Diastolic blood pressure 66 mm[Hg] Alondra Prescott DO Work Phone: [facility] 10-04-2022 10:38-0500 Heart rate 57 /min Alondra Prescott DO Work Phone: [facility] 10-04-2022 10:38-0500 SaO2% (BldA) [Mass fraction] 100 % Alondra Prescott DO Work Phone: [facility] 10-04-2022 10:38-0500 Systolic blood pressure 122 mm[Hg] Alondra Prescott DO Work Phone: [facility] 08-15-2022 14:50-0400 Body height 175.3 cm Pam Reddy MD Work Phone: [facility] 08-15-2022 14:50-0400 Body weight 119.3 kg Pam Reddy MD Work Phone: [facility] 08-15-2022 14:50-0400 Diastolic blood pressure 62 mm[Hg] Pam Reddy MD Work Phone: [facility] 08-15-2022 14:50-0400 Heart rate 58 /min Pam Reddy MD Work Phone: [facility] 08-15-2022 14:50-0400 Respiratory rate 18 /min Pam Reddy MD Work Phone: [facility] 08-15-2022 14:50-0400 SaO2% (BldA) [Mass fraction] 98 % Pam Reddy MD Work Phone: [facility] 08-15-2022 14:50-0400 Systolic blood pressure 114 mm[Hg] Pam Reddy MD Work Phone: [facility] 01-19-2022 15:14-0400 Body weight 121.11 kg Guanakito Reno MD Work Phone: [facility] 01-19-2022 15:14-0400 Diastolic blood pressure 68 mm[Hg] Guanakito Reno MD Work Phone: [facility] 01-19-2022 15:14-0400 Heart rate 60 /min Guanakito Reno MD Work Phone: [facility] 01-19-2022 15:14-0400 Systolic blood pressure 124 mm[Hg] Guanakito Reno MD Work Phone: [facility] Encounters Encounter Date Encounter Type Care Provider Facility Start: 05-06-2025 ambulatory [facility] Facility:[facility] Start: 05-02-2025 End: 05-02-[address] Burt Zamora MD [facility] Start: 05-02-2025 End: 05-02-[address] Guanakito Reno MD Work Phone: [facility] Start: 05-01-2025 ambulatory [facility] Facility:[facility] Start: 05-01-[address] Josafat juarez MD -[facility] Start: 04-29-2025 ambulatory Josafat Contreras ity:[facility] Start: 04-29-[address] Josafat juarez MD -[facility] Start: 04-24-2025 ambulatory Josafat Contreras ity:[facility] Start: 04-24-[address] Josafat juarez MD -[facility] Start: 04-17-2025 ambulatory Bianka Contrerasi ty:[facility] Start: 04-17-[address] Bianka Gonzalez MD -[facility] Start: 04-15-2025 End: 04-15-2025 Telephone encounter Twin Cole [facility] Ambulatory Telemanagement 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: Anticoagulation Tele phone Fu (Home INR result) Start: 04-14-2025 End: 04-14-2025 Telephone encounter Guanakito Reno MD Work Phone: [facility] 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: Patient Question Start: 04-14-2025 ambulatory Josafat García Facility :[facility] Start: 04-14-[address] Josafat García MD -Physical Therapy Work Phone: Start: 04-08-2025 End: 04-08-2025 Refill Carolina Landeros [employer].PITCH WORKER Work Phone: [facility] 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: Refill Request Start: 03-28-2025 End: 03-28-2025 Telephone encounter Guanakito Reno MD Work Phone: [facility] 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: Faxed to [facility] Start: 03-24-2025 End: 03-24-2025 Telephone encounter Alejandro Molina [facility] Ambulatory Telemanagement 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: Anticoagulation Tele phone Fu (Home INR Result ) Start: 03-07-2025 End: 03-07-[address] Josafat García MD -[facility] Work Phone: Start: 03-07-2025 End: 03-07-2025 ambulatory Josafat García Facility:[facility] Start: 03-06-2025 End: 03-06-2025 ambulatory CAROLINA LANDEROS Facility:[facility] Start: 03-05-2025 End: 03-06-2025 Emergency department patient visit KEDAR HERNANDEZ Facility:[facility] Start: 02-20-2025 End: 02-20-2025 Telephone encounter Jimmy Carrizales [facility] Ambulatory Telemanagement 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: Anticoagulation Tele phone Fu (Home INR) Start: 01-31-2025 End: 01-31-2025 Telephone encounter Kamran Ayon [facility] Ambulatory Telemanagement 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: Anticoagulation Tele phone Fu (INR Home Test Result) Start: 01-23-2025 End: 03-25-2025 Follow-up encounter Carolina Landeros [employer].PITCH WORKER Work Phone: [facility] Start: 01-21-2025 End: 01-21-2025 ambulatory CAROLINA SUPPAN Facility:[facility] Start: 01-21-2025 End: 01-21-2025 Office outpatient visit 25 minutes Carolina Landeros APRN.CNP Work Phone: [facility] 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: Hyperlipidemia, mixe d (Primary Dx); Paroxysmal atrial fibrillation (HCC); Benign prostatic hyperplasia without lower urinary tract symptoms; Hypertensive kidney disease with stage 3 chronic kidney disease, unspecified whether stage 3a or 3b CKD (HCC); Mixed dementia (HCC); Essential hypertension; Peripheral arterial disease; Aortic valve stenosis, etiology of cardiac valve disease unspecified; Ectatic thoracic aorta; Type 2 diabetes mellitus with stage 3 chronic kidney disease, without long-term current use of insulin, unspecified whether stage 3a or 3b CKD (HCC); Chronic renal disease, stage IV (HCC); 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; Obesity, Class II, BMI 35-39.9; Viral conjunctivitis; Seasonal allergic rhinitis, unspecified trigger; Bilateral impacted cerumen Start: 01-08-2025 End: 01-15-2025 Telephone encounter Ruthie Cuevas [facility] Ambulatory Telemanagement 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: Anticoagulation Foll ow Up (Home INR result ) Start: 01-07-2025 End: 01-08-2025 Refill Corrina Lennon APRN.CNP Work Phone: [facility] 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: Refill Request Start: 12-30-2024 End: 12-30-2024 Telephone encounter Twin Cole [facility] Ambulatory Telemanagement 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: Anticoagulation Tele phone Fu (Home INR result) Start: 12-11-2024 End: 12-11-2024 Telephone encounter Jimmy Carrizales [facility] Ambulatory Telemanagement 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: Anticoagulation Tele phone Fu (Home INR) Start: 11-26-2024 End: 11-26-2024 Telephone encounter Twin Cole [facility] Ambulatory Telemanagement 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: Anticoagulation Tele phone Fu (Home INR result) Start: 10-28-2024 End: 10-28-2024 Telephone encounter Alejandro Molina [facility] Ambulatory Telemanagement 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: Anticoagulation Tele phone Fu (Home INR Result ) Start: 10-21-2024 End: 10-21-2024 Telephone encounter Guanakito Reno MD Work Phone: [facility] [place] 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: Patient Update; Rozina ent Question Start: 10-01-2024 End: 10-01-2024 Telephone encounter Twin Cole [facility] Ambulatory Telemanagement 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: Anticoagulation Tele phone Fu (Home INR result) Start: 08-26-2024 End: 08-26-2024 Telephone encounter Alejandro Ulysses [facility] Ambulatory Telemanagement Comment on above: Anticoagulation Tele phone Fu (Home INR Result ) Start: 08-19-2024 End: 08-19-2024 ambulatory Melania Galindo RN Telephone Claims Representative Management Comment on above: QI SMITH RN ( Medication Adherence Review per Request of Payor ) Start: 08-16-2024 End: 08-16-2024 Telephone encounter [facility] Start: 08-06-2024 End: 08-06-2024 Office outpatient new 45 minutes Laura Iraheta MD Work Phone: [facility] Comment on above: Bilateral carotid ar jeanne stenosis (Primary Dx); History of carotid endarterectomy Start: 08-06-2024 End: 08-07-2024 ambulatory LAURA IRAHETA Facility:[facility] Start: 07-30-2024 End: 07-30-2024 ambulatory Josselyn aMyer APRN.PITCH WORKER Work Phone: [facility] [place] Start: 07-30-2024 End: 08-01-2024 Telephone encounter Josselyn Mayer APRN.PITCH WORKER Work Phone: [facility] [place] Comment on above: Switch Coupler - O ther Start: 07-25-2024 End: 07-26-2024 Telephone encounter Jimmy Carrizales [facility] Ambulatory Telemanagement Comment on above: Anticoagulation (Pat ient update) Start: 07-23-2024 End: 07-23-2024 ambulatory PAM REDDY Facility:[facility] Start: 07-23-2024 End: 07-23-[address] [facility] Start: 07-23-2024 End: 07-23-2024 Subsequent hospital visit by physician [facility] 1 (I-Stat) [facility] Comment on above: Nonrheumatic aortic valve stenosis [I35.0] Start: 07-22-2024 End: 07-22-2024 ambulatory VALERIE PIÑA Facility:[facility] Start: 07-15-2024 End: 07-15-2024 Orders Only Valerie Piña INS[employer].PITCH WORKER Work Phone: [facility] Comment on above: Paroxysmal atrial fi brillation (HCC) (Primary Dx); Aortic valve stenosis, etiology of cardiac valve disease unspecified Nonrheumatic aortic valve stenosis (Primary Dx); Paroxysmal atrial fibrillation (HCC) Patient Update Results Start: 07-12-2024 End: 07-12-2024 Telephone encounter Guanakito Reno MD Work Phone: [facility] [place] Start: 07-12-2024 End: 07-12-2024 ambulatory JOSSELYN MAYER Facility:[facility] Start: 07-12-2024 End: 07-15-2024 Patient encounter procedure Guanakito Reno MD Work Phone: [facility] [place] Comment on above: Essential hypertensi on (Primary Dx); Hyperlipidemia, mixed; Nonrheumatic aortic valve stenosis; Ectatic thoracic aorta (HCC); Paroxysmal atrial fibrillation (HCC); Hypertensive kidney disease with stage 3 chronic kidney disease, unspecified whether stage 3a or 3b CKD (HCC); Type 2 diabetes mellitus with stage 3 chronic kidney disease, without long-term current use of insulin, unspecified whether stage 3a or 3b CKD (HCC); Chronic renal disease, stage IV (HCC); Mixed dementia (HCC); [facility] (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; Need for vaccination Essential hypertensi on (Primary Dx) Start: 07-10-2024 ambulatory JOSSELYN MAYER Facili ty:[facility] Start: 07-10-2024 End: 07-10-2024 Subsequent hospital visit by physician Ekg/Holter/Event Monitor [facility] Comment on above: Nonrheumatic aortic valve stenosis [I35.0] Start: 07-10-2024 End: 07-10-2024 Patient encounter procedure Cal Thacker MD Work Phone: [facility] Comment on above: Severe aortic stenos is [I35.0] (Primary Dx) Nonrheumatic aortic valve stenosis (Primary Dx); Encounter for preprocedural cardiovascular examination; Dyspnea on exertion; Dementia, unspecified dementia severity, unspecified dementia type, unspecified whether behavioral, psychotic, or mood disturbance or anxiety (HCC); Chronic kidney disease, unspecified CKD stage; Anemia in chronic kidney disease, unspecified CKD stage; Stenosis of left carotid artery Start: 07-10-2024 End: 07-10-2024 Patient encounter status Pam Reddy MD Work Phone: [facility] Work Phone: Start: 07-10-2024 Encounter for preprocedural cardiovascular examination PAM REDDY [facility] Start: 07-10-2024 End: 07-10-2024 ambulatory GUANAKITO RENO Facility:[facility] Start: 07-05-2024 End: 07-05-2024 Telephone encounter Annamarie Garcia [facility] Comment on above: Anticoagulation Tele phone Fu Start: 2024 End: 2024 Telephone encounter Guanakito Reno MD Work Phone: [facility] Start: 06-18-2024 End: 06-18-2024 Telephone encounter Jimmy Carrizales [facility] Ambulatory Telemanagement Comment on above: Anticoagulation Tele phone Fu (Home INR) Start: 06-06-2024 End: 06-06-2024 ambulatory CAROLINA LANDEROS Facility:[facility] Start: 06-06-2024 End: 06-06-2024 Office outpatient visit 15 minutes Carolina Landeros INSPECT[employer].PITCH WORKER Work Phone: [facility] [place] Comment on above: Aortic valve stenosi s, etiology of cardiac valve disease unspecified (Primary Dx); Hypertensive kidney disease with stage 3b chronic kidney disease (HCC); Paroxysmal atrial fibrillation (HCC); Benign prostatic hyperplasia without lower urinary tract symptoms; Anemia, unspecified type Start: 06-05-2024 End: 06-05-2024 ambulatory GUANAKITO RENO Facility:[facility] Start: 06-05-2024 End: 06-05-2024 Patient encounter procedure Valerie Gruber [employer]PECT[employer].PITCH WORKER Work Phone: [facility] Comment on above: Blood pressure check (Primary Dx); Leg swelling Start: 06-05-2024 End: 06-05-2024 Patient encounter status Valerie Gruber [employer].PITCH WORKER Work Phone: [facility] Work Phone: Start: 06-03-2024 End: 06-05-2024 ambulatory Guanakito Reno MD Work Phone: [facility] [place] Comment on above: Water pill/ kidney d r # Start: 05-20-2024 Telephone encounter Josselyn Mayer INS[employer].PITCH WORKER Work Phone: [facility] [place] Comment on above: Switch Coupler - O ther Results Start: 05-17-2024 Telephone encounter Dorothy Sainz [facility] Comment on above: Anticoagulation Tele phone Fu Start: 05-06-2024 End: 05-06-2024 Office outpatient visit 15 minutes Corrina Lennon APRN.PITCH WORKER Work Phone: [facility] [place] Comment on above: Essential hypertensi on (Primary Dx); Hypertensive kidney disease with stage 3 chronic kidney disease, unspecified whether stage 3a or 3b CKD (HCC); Anemia, unspecified type Start: 05-02-2024 End: 05-02-2024 Subsequent hospital visit by physician [facility] Work Phone: Radiology Comment on above: Renal insufficiency [N28.9] Start: 04-24-2024 Telephone encounter [facility] Comment on above: Anticoagulation Tele phone Fu (Home INR) Start: 04-19-2024 Telephone encounter Guanakito Reno MD Work Phone: [facility] [place] Comment on above: Results Start: 04-08-2024 End: 04-08-2024 Office outpatient visit 25 minutes Corrina Lennon APRN.PITCH WORKER Work Phone: [facility] [place] Comment on above: Essential hypertensi on (Primary Dx); Benign prostatic hyperplasia without lower urinary tract symptoms; Hypertensive kidney disease with stage 3 chronic kidney disease, unspecified whether stage 3a or 3b CKD (HCC); Aortic valve disorder; Occlusion and stenosis of unspecified carotid artery; Anemia, unspecified type; Chronic renal disease, stage IV (HCC) Start: 04-08-2024 Telephone encounter [facility] Comment on above: Anticoagulation Tele phone Fu (Home INR Result ) Start: 04-05-2024 Telephone encounter Guanakito Reno MD Work Phone: [facility] Comment on above: Results Start: 04-04-2024 Telephone encounter Jimmy Carrizales [facility] Ambulatory Telemanagement Comment on above: Anticoagulation Tele phone Fu (Home INR) Start: 03-26-2024 End: 03-26-2024 Patient encounter procedure Guanakito Reno MD Work Phone: [facility] Comment on above: Essential hypertensi on (Primary Dx); Hyperlipidemia, mixed; Ectatic thoracic aorta (HCC); Hypertensive kidney disease with stage 3 chronic kidney disease, unspecified whether stage 3a or 3b CKD (HCC); Paroxysmal atrial fibrillation (HCC); History of carotid endarterectomy; Type 2 diabetes mellitus with stage 3 chronic kidney disease, without long-term current use of insulin, unspecified whether stage 3a or 3b CKD (HCC); Mixed dementia (HCC); [facility] (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; Obesity, Class II, BMI 35-39.9; Renal insufficiency; Anemia, unspecified type Start: 03-25-2024 End: 03-25-2024 Patient encounter procedure Pam Reddy MD Work Phone: Cardiology Comment on above: Syncope, unspecified syncope type (Primary Dx); Aortic valve disorder; Paroxysmal atrial fibrillation (HCC); Ectatic thoracic aorta (HCC); Type 2 diabetes mellitus with stage 3a chronic kidney disease, without long-term current use of insulin (HCC) Start: 03-08-2024 ambulatory Melania Galindo RN Ambulator y Care Management Comment on above: QI SMITH RN ( Medication adherence and suspected condition review per request of payor) Start: 03-07-2024 Telephone encounter Jimmy Carrizales [facility] Ambulatory Telemanagement Comment on above: Anticoagulation Tele phone Fu Start: 02-14-2024 Telephone encounter [facility] Comment on above: Anticoagulation Tele phone Fu (Home INR results ) Start: 01-17-2024 Refill Guanakito Reno MD Work Phone: [facility] [place] Comment on above: Refill Request requesting medicatio n on list Start: 01-15-2024 Telephone encounter [facility] Tele[facility] Comment on above: Anticoagulation Tele phone Fu (Home INR Result ) Start: 12-22-2023 End: 12-22-2023 Office outpatient visit 15 minutes Carolina Landeros INSPECT[employer].CLARIFIER Work Phone: [facility] [place] Comment on above: Abrasion of arm, lef t, initial encounter (Primary Dx); Chronic insomnia Start: 12-21-2023 ambulatory Guanakito Reno MD Work Phone: [facility] [place] Comment on above: skin laceration Start: 12-21-2023 Telephone encounter Jimmy Carrizales [facility] Ambulatory Telemanagement Comment on above: Anticoagulation Tele phone Fu (Home INR) Start: 12-04-2023 Telephone encounter [facility] Tele[facility] Comment on above: Anticoagulation Tele phone Fu (Home INR Result ) Start: 09-20-2023 Telephone encounter [facility] Telemanagement Comment on above: Anticoagulation Tele phone Fu (Home INR ) Start: 09-05-2023 ambulatory Mouna Vallecillo RN Am bulatory Care Management Comment on above: QI SMITH RN ( Medication Adherence review per request of payer) Start: 08-22-2023 Telephone encounter Twin Cole [facility] Ambulatory Telemanagement Comment on above: Anticoagulation Tele phone Fu (Home INR result) Start: 08-16-2023 Telephone encounter Guanakito Reno MD Work Phone: [facility] [place] Comment on above: Results Start: 08-15-2023 Telephone encounter Guanakito Reno MD Work Phone: [facility] [place] Comment on above: Results Start: 08-14-2023 End: 08-14-2023 Patient encounter procedure Guanakito Reno MD Work Phone: [facility] [place] Comment on above: Onychomycosis (Prima ry Dx); Essential hypertension; Hyperlipidemia, mixed; Ectatic thoracic aorta (HCC); Paroxysmal atrial fibrillation (HCC); Hypertensive kidney disease with stage 3 chronic kidney disease, unspecified whether stage 3a or 3b CKD (HCC); Nonrheumatic aortic valve stenosis; Type 2 diabetes mellitus with stage 3 chronic kidney disease, without long-term current use of insulin, unspecified whether stage 3a or 3b CKD (HCC); Stage 3 chronic kidney disease, unspecified whether stage 3a or 3b CKD (HCC); Mixed dementia (HCC); Occlusion and stenosis of unspecified carotid artery; Encounter for immunization; Type 2 diabetes mellitus with stage 3a chronic kidney disease, without long-term current use of insulin (HCC); Hypertensive kidney disease with stage 3a chronic kidney disease (HCC) Start: 07-26-2023 Telephone encounter [facility] Comment on above: Anticoagulation Tele phone Fu (Home INR result ) Start: 07-04-2023 Refill Guanakito Reno MD Work Phone: [facility] Comment on above: Refill Request Start: 2023 ambulatory Lizette Cardenas RN [facility] Comment on above: QI SMITH RN ( Medication Adherence review per request of payer) Start: 05-22-2023 Telephone encounter [facility] Comment on above: Anticoagulation Tele phone Fu (Home INR Result ) Start: 04-24-2023 Telephone encounter [facility] Tele[facility] Comment on above: Anticoagulation Tele phone Fu (Home INR Result ) Start: 04-19-2023 Refill Guanakito Reno MD [facility] Comment on above: Refill Request Start: 03-28-2023 Telephone encounter Twin Cole [facility] Amb[facility] Telemanagement Comment on above: Anticoagulation Tele phone Fu (Home INR result) Start: 02-13-2023 End: 02-13-2023 Patient encounter procedure Pam Reddy MD Work Phone: Cardiology Comment on above: Syncope, unspecified syncope type (Primary Dx); Aortic valve disorder Start: 02-06-2023 End: 02-06-2023 Patient encounter procedure Guanakito Reno MD Work Phone: [facility] Comment on above: Essential hypertensi on with goal blood pressure less than 140/90 (Primary Dx); Paroxysmal atrial fibrillation (HCC); Mixed dementia (HCC); Type 2 diabetes mellitus with stage 3 chronic kidney disease, without long-term current use of insulin, unspecified whether stage 3a or 3b CKD (HCC); Peripheral arterial disease (HCC); Dementia, vascular, mixed, with behavioral disturbance (HCC); Aortic valve disorder; Hyperlipidemia, mixed; Essential hypertension; Nonrheumatic aortic valve stenosis; Stage 3 chronic kidney disease, unspecified whether stage 3a or 3b CKD (HCC); Need for COVID-19 vaccine Start: 01-16-2023 Refill Guanakito Reno MD Work Phone: [facility] Comment on above: Refill Request Start: 01-09-2023 Telephone encounter [facility] Tele[facility] Comment on above: Anticoagulation (INR Result) Start: 12-19-2022 Telephone encounter [facility] Comment on above: Anticoagulation Tele phone Fu (Home INR Result ) Start: 11-28-2022 Telephone encounter [facility] Tele[facility] Comment on above: Anticoagulation Tele phone Fu (Home INR Result ) Start: 11-18-2022 Telephone encounter Kamran Ayon [facility] Ambulatory Telemanagement Comment on above: Anticoagulation Tele phone Fu Start: 11-04-2022 Telephone encounter Kamran Ayon [facility] Ambulatory Telemanagement Comment on above: Anticoagulation Tele phone Fu (INR Home Test Result) Start: 11-01-2022 Telephone encounter Twin Cole [facility] Ambulatory Telemanagement Comment on above: Anticoagulation Tele phone Fu (Home INR expected) Start: 10-19-2022 Telephone encounter [facility] Comment on above: Anticoagulation Tele phone Fu (Home INR result) Start: 10-04-2022 End: 10-04-2022 Patient encounter procedure Alondra Prescott DO Work Phone: Vascular Surgery Comment on above: Bilateral carotid ar jeanne stenosis (Primary Dx) Start: 09-23-2022 Refill Guanakito Reno MD Work Phone: [facility] [place] Comment on above: Orders; Refill Reque st Start: 09-21-2022 Telephone encounter [facility] Comment on above: Anticoagulation Tele phone Fu (Home INR result expected) Start: 09-07-2022 ambulatory Lizette Cardenas RN [facility] Comment on above: QI SMITH RN ( Medication Adherence review at request of payer) Start: 08-22-2022 Telephone encounter [facility] Comment on above: Anticoagulation (INR result) Start: 08-15-2022 End: 08-15-2022 Patient encounter procedure Pam Reddy MD Work Phone: Cardiology Comment on above: Obesity, Class II, B NM 35-39.9 (Primary Dx); Paroxysmal atrial fibrillation (HCC); Nonrheumatic aortic valve stenosis; Aortic valve disorder Start: 08-01-2022 Telephone encounter [facility] Comment on above: Anticoagulation Tele phone Fu (Home INR Result) Start: 07-22-2022 Refill Guanakito Reno MD Work Phone: [facility] Comment on above: Refill Request Start: 2022 Telephone encounter [facility] Comment on above: Anticoagulation (INR result ) Start: 06-14-2022 ambulatory Nirmala Lim MA [facility] Comment on above: Population Health Na vigation Outreach ([facility] care gaps) Start: 06-06-2022 Telephone encounter [facility] Comment on above: Anticoagulation (Gabrielle e INR) Start: 05-19-2022 Refill Guanakito Reno MD [facility] Comment on above: Refill Request Start: 05-16-2022 Telephone encounter [facility] Comment on above: Anticoagulation Tele phone Fu (Home INR Result) Start: 04-25-2022 Telephone encounter Val Oliver [facility] Comment on above: Anticoagulation Tele phone Fu (Home INR ) Start: 04-04-2022 Telephone encounter [facility] Comment on above: Anticoagulation Tele phone Fu (Home INR Result) Start: 03-23-2022 Telephone encounter [facility] Amb[facility] Telemanagement Comment on above: Anticoagulation Tele phone Fu (Home INR result expected) Start: 03-16-2022 Telephone encounter Alondra Prescott Work Phone: Vascular Surgery Comment on above: Appointment (testing needed?) Start: 03-09-2022 Telephone encounter [facility] Amb[facility] Telemanagement Comment on above: Anticoagulation Tele phone Fu (Home INR result ) Start: 02-17-2022 Telephone encounter Jazmyn Garcia [facility] Ambulatory Telemanagement Comment on above: Anticoagulation Tele phone Fu Start: 02-08-2022 Telephone encounter Twin Cole [facility] Amb[facility] Telemanagement Comment on above: Anticoagulation Tele phone Fu (Home INR result) Start: 01-25-2022 Telephone encounter Twin Cole [facility] Amb[facility] Telemanagement Comment on above: Anticoagulation Tele phone Fu (Home INR result) Start: 01-19-2022 End: 01-19-2022 Patient encounter procedure Guanakito Reno MD Work Phone: [facility] Comment on above: Essential hypertensi on (Primary Dx); Essential hypertension with goal blood pressure less than 140/90; Peripheral arterial disease (HCC); Nonrheumatic aortic valve stenosis; Hypertensive kidney disease with stage 3 chronic kidney disease, unspecified whether stage 3a or 3b CKD (HCC); Stage 3 chronic kidney disease, unspecified whether stage 3a or 3b CKD (HCC); Dementia, vascular, mixed, with behavioral disturbance (HCC); Type 2 diabetes mellitus with stage 3 chronic kidney disease, without long-term current use of insulin, unspecified whether stage 3a or 3b CKD (HCC) Start: 01-13-2022 Telephone encounter Jazmyn Garcia [facility] Amb[facility] Telemanagement Comment on above: Anticoagulation Tele phone Fu Start: 06-07-2018 Ambulatory VIPIN CARDONA Facility :[facility] Start: 11-24-2017 End: 11-24-2017 Ambulatory [facility] Facility:[facility] Procedures Date Procedure Procedure Detail Performing Clinician Start: 07-12-2024 Outitude-Tweet Category COVI D-19 VACCINE AGE 12+ YR (COMIRNATY) Guanakito Reno MD Work Phone: Start: 07-10-2024 Ecg routine ecg w/le ast 12 lds w/i&r Pam Reddy MD Work Phone: Start: 05-02-2024 Us retroperitoneal r eal time w/image complete Guanakito Reno MD Work Phone: Start: 08-14-2023 INFLUENZA VACCINE, P RSV FREE, AGE 65+ YR, HIGH DOSE, QUADRIVALENT (FLUZONE HIGH-DOSE) Guanakito Reno MD Work Phone: Start: 08-14-2023 PFIZER-BIONTECH COVI D-19 VACCINE ( SEASON) AGE 12+ YR Guanakito Reno MD Work Phone: Start: 02-06-2023 PFIZER-BIONTECH COVI D-19 BIVALENT VACCINE, AGE 12+ YR Guanakito Reno MD Work Phone: Start: 09-28-2022 Prothrombin time [facility] Start: 01-24-2022 Prothrombin time [facility] Start: 04-17-2014 History of carotid endarterectomy History of carotid endarterectomy Guanakito Reno MD Work Phone: Comment on above: Per Dr. Jaylen Velasquez with bovine patch angioplasty, 04/17/2014 @ [facility] History of carotid endarterectomy History of carotid endarterectomy Guanakito Reno MD Work Phone: History of carotid endarterectomy History of carotid endarterectomy Laura Iraheta MD Work Phone: Plan of Treatment Date Care Activity Detail Author Start: 04-22-2031 Urine microalbumin profile [facility] Start: 01-21-2026 Diabetic foot examination Diabetic Foot Exam [facility] Start: 01-21-2026 Hepatitis B surface antibody level LDL Cholesterol [facility] Start: 08-06-2025 End: 09-05-2025 US Carotid arteries - bilateral US CAROTID BILATERAL Radiology Routine Bilateral carotid artery stenosis History of carotid endarterectomy Expected: 08/06/2025 (Approximate), Expires: 09/05/2025 [facility] Work Phone: Comment on above: Expected: 08/06/2025 (Approximate), Expi res: 09/05/2025 Start: 07-23-2025 End: 07-23-2025 Patient encounter procedure 07/23/2025 3:20 PM EDT Office Visit [facility] [address] [place] [address] Guanakito Reno MD [address] [place], [place] [id number] 6 month exam [facility] Comment on above: 6 month exam Start: 07-23-2025 Hemoglobin A1c measurement HbA1C [facility] Start: 07-12-2025 Covid-19 Vaccine ( season) Covid-19 Vaccine () [facility] Comment on above: Postponed from 01/09/2025 (Declined at t his time) Start: 07-12-2025 Hepatitis B surface antibody level LDL Cholesterol [facility] Start: 06-16-2025 Influenza vaccination Influenza Vaccine (#1) [facility] Start: 05-06-2025 Annual PCP Team Chronic Disease Visit Annual PCP Team Chronic Disease Visit [facility] Start: 05-06-2025 BP Controlled (<130/80) BP Controlled (<130/80) [facility] Start: 05-02-2025 Plain X-ray of shoulder Shoulder min 2 Views [facility] Start: 05-02-2025 XR Shoulder GE 2 Views [facility] Start: 04-19-2025 Complete blood count Hemoglobin/Hematocrit [facility] Start: 04-19-2025 Creatinine measurement Serum Creatinine [facility] Start: 04-08-2025 Annual PCP Team Chronic Disease Visit Annual PCP Team Chronic Disease Visit [facility] Start: 04-08-2025 BP Controlled (<130/80) BP Controlled (<130/80) [facility] Start: 04-04-2025 Complete blood count Hemoglobin/Hematocrit [facility] Start: 04-04-2025 Creatinine measurement Serum Creatinine [facility] Start: 03-26-2025 Annual PCP Team Chronic Disease Visit Annual PCP Team Chronic Disease Visit [facility] Start: 03-26-2025 BP Controlled (<130/80) BP Controlled (<130/80) [facility] in Start: 03-26-2025 Covid-19 Vaccine () Covid-19 Vaccine () [facility] Comment on above: Postponed from 12/14/2023 (Declined at t his time) Start: 03-26-2025 Shingrix Vaccine (1 of 2) Shingrix Vaccine (1 of 2) [facility] Comment on above: Postponed from 1993 (Declined at t his time) Start: 03-25-2025 BP Controlled (<130/80) BP Controlled (<130/80) [facility] Start: 03-25-2025 Complete blood count Hemoglobin/Hematocrit [facility] Start: 03-25-2025 Creatinine measurement Serum Creatinine [facility] Start: 01-21-2025 End: 01-21-2025 Patient encounter procedure 01/21/2025 3:40 PM EDT Office Visit Family [facility] [address] [place], [place] [id number] Carolina Landeros, [employer].PITCH WORKER [address] [place] [address] 6 month follow up [facility] Comment on above: 6 month follow up Start: 01-21-2025 End: 04-22-2025 CBC W Auto Differential panel - Blood [facility] Comment on above: Expected: 01/21/2025, Expires: Start: 01-21-2025 End: 04-22-2025 Cobalamin (Vitamin B12) [Mass/volume] in Serum or Plasma [facility] Comment on above: Expected: 01/21/2025, Expires: Start: 01-21-2025 End: 04-22-2025 Comprehensive metabolic 2000 panel - Serum or Plasma [facility] Work Phone: Comment on above: Expected: 01/21/2025, Expires: Start: 01-21-2025 End: 04-22-2025 Hemoglobin A1c in Blood [facility] Comment on above: Expected: 01/21/2025, Expires: Start: 01-21-2025 End: 04-22-2025 LIPID PANEL, NONFASTING [facility] Comment on above: Expected: 01/21/2025, Expires: Start: 01-21-2025 End: 04-22-2025 Magnesium [Mass/volume] in Serum or Plasma [facility] Comment on above: Expected: 01/21/2025, Expires: Start: 01-13-2025 End: 01-13-2025 Patient encounter procedure 01/13/2025 10:40 AM EDT Office Visit [facility] [address] [place], [place] [id number] Guanakito Reno MD [address] [place], [place] [address] 6 month follow up [facility] Comment on above: 6 month follow up Start: 01-09-2025 Hemoglobin A1c measurement HbA1C [facility] Start: 12-21-2024 BP Controlled (<130/80) BP Controlled (<130/80) [facility] in Start: 10-16-2024 Advance Directive Discussion Advance Directive Discussion [facility] Start: 10-16-2024 Medicare Advantage Annual Wellness Visit Medicare Advantage Annual Wellness Visit [facility] Start: 10-04-2024 Hemoglobin A1c measurement HbA1C [facility] Start: 08-14-2024 3 comp foot exam completed Diabetic Foot Exam [facility] Start: 08-14-2024 Annual PCP Team Chronic Disease Visit Annual PCP Team Chronic Disease Visit [facility] Start: 08-14-2024 BP Controlled (<130/80) BP Controlled (<130/80) [facility] Start: 08-14-2024 Complete blood count Hemoglobin/Hematocrit [facility] Start: 08-14-2024 Creatinine measurement Serum Creatinine [facility] Start: 08-14-2024 Diabetic foot examination Diabetic Foot Exam [facility] Start: 08-14-2024 Hemoglobin/Hematocrit Hemoglobin/Hematocrit [facility] Start: 08-14-2024 Hepatitis B surface antibody level LDL Cholesterol [facility] Start: 08-14-2024 Hepatitis B Vaccine (1 of 3 - Risk 3-dose series) Hepatitis B Vaccine (1 of 3 - Risk 3-dose series) [facility] Comment on above: Postponed from 2003 (Declined at t his time) Start: 08-14-2024 RSV Vaccine (1 - 1-dose 60+ series) RSV Vaccine (1 - 1-dose 60+ series) [facility] Comment on above: Postponed from 2003 (Declined at t his time) Start: 08-14-2024 RSV Vaccine (1 - 1-dose 75+ series) RSV Vaccine (1 - 1-dose 75+ series) [facility] Comment on above: Postponed from 2018 (Declined at t his time) Start: 08-14-2024 Serum Creatinine Serum Creatinine [facility] Start: 08-06-2024 End: 08-06-2024 Patient encounter procedure 08/06/2024 1:00 PM EDT Office Visit [facility] [address] [place], [place] [id number] Laura Iraheta MD [address] [facility] [address] [place], [place] [id number] Referral from Josselyn Mayer - carotid stenosis 05/02/24 Carotid US [facility] Comment on above: Referral from Josselyn Mayer - carotid s tenosis 05/02/24 Carotid US Start: 07-29-2024 End: 07-29-2024 ambulatory 07/29/2024 11:15 AM EDT Results Only [place] [facility] [address] [place] [address] [facility] Start: 07-23-2024 End: 07-23-2024 Admission to same day surgery center 07/23/2024 10:00 AM EDT - 07/23/2024 11:30 AM EDT Surgery [facility] [employer] [employer] [address] [place] [address] Pam Reddy MD [address], [address] [place] [address] CORONARY CATH RIGHT/LEFT HEART ANGIO INTRAPROCEDURAL INJECT IMAGING SUPERVISIO/INTERPRETATIO N [facility] [employer] [employer] Comment on above: CORONARY CATH RIGHT/LEFT HEART ANGIO INT RAPROCEDURAL INJECT IMAGING SUPERVISIO/INTERPRETATION Start: 07-23-2024 End: 07-23-2024 R & l hrt cath winjx hrt art& l ventr img CORONARY CATH RIGHT/LEFT HEART ANGIO INTRAPROCEDURAL INJECT IMAGING SUPERVISIO/INTERPRETATIO N Valvular heart disease 07/23/2024 10:00 AM EDT [facility] [employer] Start: 07-23-2024 Subsequent hospital visit by physician 07/23/2024 10:00 AM EDT Hospital Encounter [facility] [address] [place] [address] Pam Reddy MD [address], [address] [place] [address] Valvular heart disease [I38] [facility] [employer] Comment on above: Valvular heart disease [I38] Start: 07-23-2024 End: 07-23-2024 Patient encounter procedure 07/23/2024 7:30 AM EDT Appointment [facility] [address] [place] [address] 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.0]; Encounter for preprocedural cardiovascular examination [Z01.810] [facility] Comment on above: 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.0]; Encounter for preprocedural cardiovascular examination [Z01.810] Start: 07-16-2024 End: 07-16-2024 Patient encounter procedure [facility] Comment on above: Referral from Josselyn Mayer - carotid s tenosis Referral from Effie Mayer - carotid stenosis 05/02/24 Carotid Start: 07-15-2024 End: 10-14-2024 PT panel - Platelet poor plasma by Coagulation assay PROTHROMBIN TIME Lab Routine Nonrheumatic aortic valve stenosis Paroxysmal atrial fibrillation (HCC) Expected: 07/15/2024, Expires: 10/14/2024 [facility] Work Phone: Comment on above: Expected: 07/15/2024, Expires: Start: 07-12-2024 End: 10-11-2024 CBC W Auto Differential panel - Blood [facility] Comment on above: Expected: 07/12/2024, Expires: Start: 07-12-2024 End: 10-11-2024 Comprehensive metabolic 2000 panel - Serum or Plasma [facility] Comment on above: Expected: 07/12/2024, Expires: Start: 07-12-2024 End: 10-11-2024 Hemoglobin A1c in Blood [facility] Work Phone: Comment on above: Expected: 07/12/2024, Expires: Start: 07-12-2024 End: 10-11-2024 LIPID PANEL, NONFASTING [facility] Comment on above: Expected: 07/12/2024, Expires: Start: 07-12-2024 End: 07-12-2024 Patient encounter procedure 07/12/2024 11:20 AM EDT Office Visit [facility] [address] [place], [place] [phone] Guanakito Reno MD [address] [place], [place] [id number] 2 month follow up- stool sample,kidney and meds [facility] Comment on above: 2 month follow up- stool sample,kidney a nd meds Start: 07-10-2024 End: 10-09-2024 Basic metabolic 2000 panel - Serum or Plasma BASIC METABOLIC PANEL Lab Routine Nonrheumatic aortic valve stenosis Expected: 07/10/2024, Expires: 10/09/2024 [facility] Comment on above: Expected: 07/10/2024, Expires: Start: 07-10-2024 End: 10-09-2024 CBC panel - Blood by Automated count COMPLETE BLOOD COUNT Lab Routine Nonrheumatic aortic valve stenosis Expected: 07/10/2024, Expires: 10/09/2024 [facility] Comment on above: Expected: 07/10/2024, Expires: Start: 07-10-2024 End: 10-09-2024 Natriuretic peptide.B prohormone N-Terminal [Mass/volume] in Serum or Plasma NT PRO BNP Lab Routine Nonrheumatic aortic valve stenosis Dyspnea on exertion Expected: 07/10/2024, Expires: 10/09/2024 [facility] Comment on above: Expected: 07/10/2024, Expires: Start: 07-10-2024 End: 10-09-2024 PT panel - Platelet poor plasma by Coagulation assay PROTHROMBIN TIME Lab Routine Nonrheumatic aortic valve stenosis Expected: 07/10/2024, Expires: 10/09/2024 [facility] Comment on above: Expected: 07/10/2024, Expires: 4 Start: 07-10-2024 End: 07-10-2024 Patient encounter procedure [facility] Comment on above: Valve Clinic- Initial Visit- 5M Walk,EKG ,KCCQ Start: 06-16-2024 Covid-19 Vaccine ( season) Covid-19 Vaccine ( season) [facility] Start: 06-16-2024 Covid-19 Vaccine ( season) Covid-19 Vaccine ( season) [facility] Start: 06-16-2024 [facility] Start: 06-06-2024 End: 06-06-2024 Patient encounter procedure 06/06/2024 11:20 AM EDT Office Visit Family [facility] [address] [place] [address] Carolina Landeros APRN.PITCH WORKER [address] [place], [place] [phone] Urgent care follow up [facility] Lin Brennan Comment on above: Urgent care follow up Start: 05-06-2024 End: 05-06-2024 Patient encounter procedure 05/06/2024 5:40 PM EDT Office Visit Family [facility] [address] [place] [address] Corrina Lennon APRN.PITCH WORKER [address] [place], [place] [id number] 1 month follow up [facility] Comment on above: 1 month follow up Start: 05-02-2024 End: 05-02-2024 Patient encounter procedure Radiology Comment on above: Renal insufficiency [N28.9] History of carotid e ndarterectomy [Z98.890] Syncope, unspecified syncope type [R55]; Aortic valve disorder [I35.9] Start: 04-08-2024 End: 04-08-2024 Patient encounter procedure 04/08/2024 3:00 PM EDT Office Visit [facility] Lin Brennan [address] [facility] [place] [address] Corrina Lennon APRN.PITCH WORKER [address] [place] [address] 2 w f/u [facility] Lin Brennan Comment on above: 2 w f/u Start: 04-08-2024 End: 03-25-2025 Echocardiography ECHO Cardiology Routine Syncope, unspecified syncope type Aortic valve disorder Expected: 04/08/2024, Expires: 03/25/2025 [facility] Comment on above: Expected: 04/08/2024, Expires: 5 Start: 04-05-2024 End: 07-05-2024 Basic metabolic 2000 panel - Serum or Plasma BASIC METABOLIC PANEL Lab Routine CKD (chronic kidney disease) stage 4, 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/min (HCC) Anemia, unspecified type Expected: 04/05/2024, Expires: 07/05/2024 [facility] Comment on above: Expected: 04/05/2024, Expires: 4 Start: 04-05-2024 End: 07-05-2024 CBC W Auto Differential panel - Blood COMPLETE BLOOD COUNT AND DIFFERENTIAL Lab Routine CKD (chronic kidney disease) stage 4, 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/min (HCC) Anemia, unspecified type Expected: 04/05/2024, Expires: 07/05/2024 [facility] Comment on above: Expected: 04/05/2024, Expires: 4 Start: 03-26-2024 End: 03-26-2024 Patient encounter procedure 03/26/2024 4:40 PM EDT Office Visit [facility] [address] [facility] [place] [address] Guanakito Reno MD [address] [place] [address] 3 month f/u [facility] Comment on above: 3 month f/u Start: 03-26-2024 End: 06-25-2024 Basic metabolic 2000 panel - Serum or Plasma BASIC METABOLIC PANEL Lab Routine Renal insufficiency Expected: 03/26/2024, Expires: 06/25/2024 [facility] Comment on above: Expected: 03/26/2024, Expires: Start: 03-26-2024 End: 03-26-2025 CBC W Auto Differential panel - Blood COMPLETE BLOOD COUNT AND DIFFERENTIAL Lab Routine Anemia, unspecified type Expected: 03/26/2024, Expires: 03/26/2025 [facility] Comment on above: Expected: 03/26/2024, Expires: Start: 03-26-2024 End: 03-26-2025 Cobalamin (Vitamin B12) [Mass/volume] in Serum or Plasma VITAMIN B12 Lab Routine Anemia, unspecified type Expected: 03/26/2024, Expires: 03/26/2025 [facility] Comment on above: Expected: 03/26/2024, Expires: Start: 03-26-2024 End: 03-26-2025 Ferritin [Mass/volume] in Serum or Plasma FERRITIN Lab Routine Anemia, unspecified type Expected: 03/26/2024, Expires: 03/26/2025 [facility] Comment on above: Expected: 03/26/2024, Expires: Start: 03-26-2024 End: 03-26-2025 Folate [Mass/volume] in Serum or Plasma FOLATE, SERUM Lab Routine Anemia, unspecified type Expected: 03/26/2024, Expires: 03/26/2025 [facility] Comment on above: Expected: 03/26/2024, Expires: Start: 03-26-2024 End: 06-25-2024 Hemoglobin A1c in Blood HEMOGLOBIN A1C Lab Routine Type 2 diabetes mellitus with stage 3 chronic kidney disease, without long-term current use of insulin, unspecified whether stage 3a or 3b CKD (HCC) Expected: 03/26/2024, Expires: 06/25/2024 [facility] Comment on above: Expected: 03/26/2024, Expires: 4 Start: 03-26-2024 End: 03-26-2025 Hemoglobin.gastrointestin al.lower [Presence] in Stool by Immunoassay IMMUNOCHEMICAL FECAL OCCULT BLOOD TEST Lab Routine Anemia, unspecified type Expected: 03/26/2024, Expires: 03/26/2025 [facility] Comment on above: Expected: 03/26/2024, Expires: 5 Start: 03-26-2024 End: 03-26-2025 Iron and Iron binding capacity panel - Serum or Plasma IRON AND TIBC Lab Routine Anemia, unspecified type Expected: 03/26/2024, Expires: 03/26/2025 [facility] Comment on above: Expected: 03/26/2024, Expires: 5 Start: 03-25-2024 End: 03-25-2024 Patient encounter procedure 03/25/2024 2:40 PM EDT Office Visit Cardiology [address] [place] [address] Pam Reddy MD [address] [facility], [facility] [address] [place], [place] [id number] 1 yr f/u Cardiology Comment on above: 1 yr f/u Start: 02-14-2024 BP CONTROLLED (<130/80) BP CONTROLLED (<130/80) [facility] Start: 02-13-2024 Hemoglobin A1c measurement HbA1C [facility] Start: 02-13-2024 Hemoglobin A1c/Hemoglobin.total in Blood HbA1C [facility] Start: 02-07-2024 3 comp foot exam completed DIABETIC FOOT EXAM [facility] Start: 02-07-2024 ANNUAL PCP TEAM CHRONIC DISEASE VISIT ANNUAL PCP TEAM CHRONIC DISEASE VISIT [facility] Start: 02-07-2024 BP CONTROLLED (<130/80) BP CONTROLLED (<130/80) [facility] Start: 02-07-2024 SHINGRIX VACCINE (1 of 2) SHINGRIX VACCINE (1 of 2) [facility] Comment on above: Postponed from 1993 (Insurance Cov erage) Start: 12-14-2023 Covid-19 Vaccine () Covid-19 Vaccine () [facility] Start: 10-16-2023 Advance Directive Discussion Advance Directive Discussion [facility] Start: 10-04-2023 BP CONTROLLED (<130/80) BP CONTROLLED (<130/80) [facility] Start: 08-15-2023 End: 08-15-2024 Basic metabolic 2000 panel - Serum or Plasma BASIC METABOLIC PNL Lab Routine Renal insufficiency Expected: 08/15/2023, Expires: 08/15/2024 [facility] Work Phone: Comment on above: Expected: 08/15/2023, Expires: Start: 08-15-2023 BP CONTROLLED (<130/80) BP CONTROLLED (<130/80) [facility] Start: 08-15-2023 End: 11-14-2023 Urinalysis complete panel - Urine URINALYSIS, WITH MICROSCOPIC Lab Routine Renal insufficiency Expected: 08/15/2023, Expires: 11/14/2023 [facility] Work Phone: Comment on above: Expected: 08/15/2023, Expires: Start: 06-16-2023 Covid-19 Vaccine ( season) Covid-19 Vaccine () [facility] Start: 06-16-2023 Influenza vaccination [facility] Start: 06-08-2023 COVID-19 VACCINE (5 - Moderna series) COVID-19 VACCINE (5 - Moderna series) [facility] Start: 03-29-2023 BP CONTROLLED (<130/80) BP CONTROLLED (<130/80) [facility] Start: 02-20-2023 End: 02-14-2024 Echocardiography ECHO Cardiology Routine Syncope, unspecified syncope type Aortic valve disorder Expected: 02/20/2023, Expires: 02/14/2024 [facility] Work Phone: Comment on above: Expected: 02/20/2023, Expires: 4 Start: 02-06-2023 End: 04-08-2023 ALBUMIN/CREAT RATIO RND UR ALBUMIN/CREAT RATIO RND UR Lab Routine Type 2 diabetes mellitus with stage 3 chronic kidney disease, without long-term current use of insulin, unspecified whether stage 3a or 3b CKD (HCC) Expected: 02/06/2023, Expires: 04/08/2023 [facility] Work Phone: Comment on above: Expected: 02/06/2023, Expires: 3 Start: 02-06-2023 End: 04-08-2023 CBC W Auto Differential panel - Blood CBC + DIFF Lab Routine Type 2 diabetes mellitus with stage 3 chronic kidney disease, without long-term current use of insulin, unspecified whether stage 3a or 3b CKD (HCC) Expected: 02/06/2023, Expires: 04/08/2023 [facility] Work Phone: Comment on above: Expected: 02/06/2023, Expires: Start: 02-06-2023 End: 04-08-2023 Comprehensive metabolic 2000 panel - Serum or Plasma COMP METABOLIC PANEL Lab Routine Type 2 diabetes mellitus with stage 3 chronic kidney disease, without long-term current use of insulin, unspecified whether stage 3a or 3b CKD (HCC) Expected: 02/06/2023, Expires: 04/08/2023 [facility] Work Phone: Comment on above: Expected: 02/06/2023, Expires: Start: 02-06-2023 End: 04-08-2023 Hemoglobin A1c in Blood HGB A1C Lab Routine Type 2 diabetes mellitus with stage 3 chronic kidney disease, without long-term current use of insulin, unspecified whether stage 3a or 3b CKD (HCC) Expected: 02/06/2023, Expires: 04/08/2023 [facility] Work Phone: Comment on above: Expected: 02/06/2023, Expires: 3 Start: 02-06-2023 End: 04-08-2023 Lipid 1996 panel - Serum or Plasma LIPID PANEL BASIC Lab Routine Type 2 diabetes mellitus with stage 3 chronic kidney disease, without long-term current use of insulin, unspecified whether stage 3a or 3b CKD (HCC) Expected: 02/06/2023, Expires: 04/08/2023 [facility] Work Phone: Comment on above: Expected: 02/06/2023, Expires: 3 Start: 01-19-2023 ANNUAL PCP TEAM CHRONIC DISEASE VISIT ANNUAL PCP TEAM CHRONIC DISEASE VISIT [facility] Start: 01-19-2023 BP CONTROLLED (<130/80) BP CONTROLLED (<130/80) [facility] in Start: 01-18-2023 HEMOGLOBIN/HEMATOCRIT HEMOGLOBIN/HEMATOCRIT [facility] Start: 01-18-2023 Hepatitis B screening URINE ALBUMIN:CREATININE RATIO [facility] Start: 01-18-2023 SERUM CREATININE SERUM CREATININE [facility] Start: 12-21-2022 Hepatitis B surface antibody level LDL CHOLESTEROL [facility] Start: 10-16-2022 ADVANCE DIRECTIVE DISCUSSION ADVANCE DIRECTIVE DISCUSSION [facility] Start: 08-22-2022 End: 08-15-2023 Echocardiography ECHO Cardiology Routine Nonrheumatic aortic valve stenosis Expected: 08/22/2022, Expires: 08/15/2023 [facility] Work Phone: Comment on above: Expected: 08/22/2022, Expires: 3 Start: 07-20-2022 Hemoglobin A1c/Hemoglobin.total in Blood HBA1C [facility] Start: 06-16-2022 Influenza vaccination [facility] Start: 04-12-2022 COVID-19 VACCINE (4 - Booster for Moderna series) COVID-19 VACCINE (4 - Booster for Moderna series) [facility] Start: 02-18-2022 End: 04-20-2022 Basic metabolic 2000 panel - Serum or Plasma BASIC METABOLIC PNL Lab Routine Essential hypertension with goal blood pressure less than 140/90 Expected: 02/18/2022, Expires: 04/20/2022 [facility] Work Phone: Comment on above: Expected: 02/18/2022, Expires: 2 Start: 02-07-2022 COVID-19 VACCINE (4 - Booster for Moderna series) COVID-19 VACCINE (4 - Booster for Moderna series) [facility] Start: 10-16-2021 ADVANCE DIRECTIVE DISCUSSION ADVANCE DIRECTIVE DISCUSSION [facility] Start: 01-18-2020 3 comp foot exam completed DIABETIC FOOT EXAM [facility] Start: 12-05-2019 Glaucoma screening Dilated Retinal Exam [facility] Start: 12-05-2019 Hepatitis C antibody, confirmatory test DILATED RETINAL EXAM [facility] Start: 2018 RSV Vaccine (1 - 1-dose 75+ series) RSV Vaccine (1 - 1-dose 75+ series) [facility] Start: 2003 Hepatitis B Vaccine (1 of 3 - Risk 3-dose series) Hepatitis B Vaccine (1 of 3 - Risk 3-dose series) [facility] Start: 1993 SHINGRIX VACCINE (1 of 2) SHINGRIX VACCINE (1 of 2) [facility] Start: 1961 BP Controlled (<130/80) BP Controlled (<130/80) [facility] in Start: 1961 HEPATITIS C SCREENING HEPATITIS C SCREENING [facility] Start: 1949 PNEUMOCOCCAL: 65+ (1 - PCV) PNEUMOCOCCAL: 65+ (1 - PCV) [facility] End: 08-09-2025 CTA Abdominal vessels and Pelvis vessels W contrast IV CTA ABD/PEL W IVCON Radiology Routine Nonrheumatic aortic valve stenosis Encounter for preprocedural cardiovascular examination 1 Occurrences starting 07/10/2024 until 08/09/2025 [facility] Work Phone: Comment on above: 1 Occurrences starting 07/10/2024 until 08/09/2025 End: 07-23-2024 CTA Abdominal vessels and Pelvis vessels W contrast IV [facility] Work Phone: Comment on above: 1 Occurrences starting 07/23/2024 until 07/23/2024 End: 08-09-2025 CTA Chest vessels WO and W contrast IV CTA CHEST (GATED) WO/W IVCON Radiology Routine Nonrheumatic aortic valve stenosis Encounter for preprocedural cardiovascular examination 1 Occurrences starting 07/10/2024 until 08/09/2025 [facility] Comment on above: 1 Occurrences starting 07/10/2024 until 08/09/2025 End: 07-23-2024 CTA Chest vessels WO and W contrast IV [facility] Comment on above: 1 Occurrences starting 07/23/2024 until 07/23/2024 ECG COMPLETE ECG COMPLETE ECG Routine Syncope, unspecified syncope type Aortic valve disorder Paroxysmal atrial fibrillation (HCC) Ordered: 03/21/2024 [facility] Work Phone: Comment on above: Ordered: 03/21/2024 End: 07-10-2025 EXTENDED WEAR ARBORICULTURE TEACHER PATCH EXTENDED WEAR ARBORICULTURE TEACHER PATCH ECG Routine Nonrheumatic aortic valve stenosis 1 Occurrences starting 07/10/2024 until 07/10/2025 [facility] Comment on above: 1 Occurrences starting 07/10/2024 until 07/10/2025 End: 07-10-2024 EXTENDED WEAR ARBORICULTURE TEACHER PATCH EXTENDED WEAR ARBORICULTURE TEACHER PATCH ECG Routine Nonrheumatic aortic valve stenosis 1 Occurrences starting 07/10/2024 until 07/10/2024 [facility] Work Phone: Comment on above: 1 Occurrences starting 07/10/2024 until 07/10/2024 Hemoglobin.tony lopezlower [Presence] in Stool by Immunoassay IMMUNOCHEMICAL FECAL OCCULT BLOOD TEST Lab Routine CKD (chronic kidney disease) stage 4, 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/min ([facility]) Anemia, unspecified type Ordered: 04/05/2024 [facility] Work Phone: Comment on above: Ordered: 04/05/2024 Hemoglobin.tony brand.lower [Presence] in Stool by Immunoassay IMMUNOCHEMICAL FECAL OCCULT BLOOD TEST Lab Routine Screen for colon cancer Ordered: 2024 [facility] Work Phone: Comment on above: Ordered: 2024 OUTSIDE VENDOR CARDI AC OUTPATIENT EXTENDED RHYTHM RECORDING (WITHOUT TELEMETRY) OUTSIDE VENDOR CARDIAC OUTPATIENT EXTENDED RHYTHM RECORDING (WITHOUT TELEMETRY) Holter Routine Syncope, unspecified syncope type Ordered: 02/13/2023 [facility] Work Phone: Comment on above: Ordered: 02/13/2023 Removal impacted cer umen irrigation/lvg unilat AMBULATORY EAR LAVAGE/IRRIGATION Procedures Routine Bilateral impacted cerumen Ordered: 01/21/2025 [facility] Comment on above: Ordered: 01/21/2025 End: 03-26-2025 US Carotid arteries - bilateral US CAROTID ARTERIES [facility]RAY [facility] LAB Vascular Lab Routine History of carotid endarterectomy 1 Occurrences starting 03/26/2024 until 03/26/2025 [facility] Work Phone: Comment on above: 1 Occurrences starting 03/26/2024 until 03/26/2025 End: 03-16-2023 US CAROTID ARTERIES GRAY VAS LAB US CAROTID ARTERIES GRAY VAS LAB Vascular Lab Routine Bilateral carotid artery stenosis 1 Occurrences starting 03/18/2022 until 03/16/2023 [facility] Work Phone: Comment on above: 1 Occurrences starting 03/18/2022 until 03/16/2023 End: 10-04-2023 US CAROTID ARTERIES GRAY VAS LAB US CAROTID ARTERIES GRAY VAS LAB Vascular Lab Routine Bilateral carotid artery stenosis 1 Occurrences starting 10/04/2022 until 10/04/2023 [facility] Work Phone: Comment on above: 1 Occurrences starting 10/04/2022 until 10/04/2023 End: 04-25-2025 US Kidney - bilateral and Urinary bladder US KIDNEY/BLADDER Radiology Routine Renal insufficiency 1 Occurrences starting 03/26/2024 until 04/25/2025 [facility] Comment on above: 1 Occurrences starting 03/26/2024 until 04/25/2025 [facility] Immunizations Immunization Date Immunization Notes Care Provider Fa [facility] 07-12-2024 COVID-19 vaccine, ag e 12+ yr (PFIZER-BIONTECH [facility]) Guanakito Reno MD Work Phone: [facility] 07-12-2024 influenza, high dose seasonal, preservative-free Guanakito Reno MD Work Phone: [facility] 07-12-2024 influenza virus vacc ine, unspecified formulation Guanakito Reno MD Work Phone: [facility] 08-14-2023 COVID-19 vaccine, ag e 12+ yr, 2022- season (PFIZER-BIONTECH) Guanakito Reno MD Work Phone: [facility] 08-14-2023 influenza (HD-IIV4) vaccine, age 65+ yr, high dose, quadrivalent, PF (FLUZONE HIGH-DOSE) Guanakito Reno MD Work Phone: [facility] 08-14-2023 influenza virus vacc ine, unspecified formulation Ruthie Cuevas [facility] 02-06-2023 COVID-19 vaccine, ag e 12+ yr, bivalent ([employer]) Guanakito Reno MD Work Phone: [facility] 12-13-2021 COVID-19 vaccine, ag e 12+ yr (PFIZER-BIONTECH - [employer]) Guanakito Reno MD Work Phone: [facility] 04-22-2021 tetanus and diphther ia toxoids, adsorbed, preservative free, for adult use (5 Lf of tetanus toxoid and 2 Lf of diphtheria toxoid) Guanakito Reno MD Work Phone: [facility] 02-16-2021 COVID-19 vaccine, fu ll dose (MODERNA) Guanakito Reno MD Work Phone: [facility] Work Phone: 01-19-2021 COVID-19 vaccine, fu ll dose (MODERNA) Guanakito Reno MD Work Phone: [facility] Work Phone: 07-18-2019 influenza, high dose seasonal, preservative-free Guanakito Reno MD Work Phone: [facility] Work Phone: 07-18-2019 influenza virus vacc ine, unspecified formulation Lizette Cardenas RN [facility] 09-15-2017 influenza, high dose seasonal, preservative-free Guanakito Reno MD Work Phone: [facility] 08-11-2016 influenza, high dose seasonal, preservative-free Guanakito Reno MD Work Phone: [facility] 08-11-2016 pneumococcal polysaccharide vaccine, 23 valent Guanakito Reno MD Work Phone: [facility] 08-10-2015 influenza, high dose seasonal, preservative-free Guanakito Reno MD Work Phone: [facility] 04-09-2015 pneumococcal conjuga te vaccine, 13 valent Guanakito Reno MD Work Phone: [facility] 10-21-2013 influenza virus vacc ine, unspecified formulation Guanakito Reno MD Work Phone: [facility] 08-08-2012 influenza virus vacc ine, unspecified formulation Guanakito Reno MD Work Phone: [facility] Work Phone: 10-12-2005 pneumococcal polysaccharide vaccine, 23 valent Guanakito Reno MD Work Phone: [facility] Work Phone: 12-02-2003 diphtheria and tetan us toxoids, adsorbed for pediatric use Guanakito Reno MD Work Phone: [facility] Work Phone: Payers Date Payer Category Payer Self-pay 2024 Unknown [id number] 2019 Medicare UHC AARP MEDICAR E [facility] MEDICARE O [id number] 2019-Present [phone] [address] [address] [place] [address] [facility] [id number] 2019 Medicare UHC AAR MEDICAR E UHC AARP MEDICARE HMO [id number] 2019-Present [phone] [address] [address] [place] [address] [facility] [id number] 2019 Medicare (Managed Care) [facility] MEDICARE HMO [id number] 2019 Medicare [id number] 2009 Unknown [id number] 2008 Medicare [id number] Medicare [id number] Unknown [id number] Unknown [id number] Unknown [id number] Unknown [id number] Unknown [id number] Unknown [id number] Unknown [id number] Unknown [id number] Unknown [id number] Unknown [id number] Social History Date Type Detail Facility Start: 08-10-2015 End: 03-06-2025 Tobacco smoking status NHIS Ex-smoker [facility] Start: 12-05-1975 End: 12-05-1985 History of tobacco use Current smoker [facility] Start: 12-05-1975 End: 12-05-1985 History of tobacco use Cigarette Smoker [facility] Start: 01-19-2022 End: 03-06-2025 Alcohol intake Current non-drinker of alcohol (finding) [facility] Start: 10-26-2020 History SDOH Alcohol Frequency 1 [facility] Start: 10-26-2020 History SDOH Alcohol Std Drinks 98 [facility] Start: 05-15-2019 History SDOH Alcohol Comment none now; social in past [facility] Start: 10-26-2020 History SDOH Social Connections Get Together 2 [facility] Start: 10-26-2020 History SDOH Social Connections Living 4 [facility] Start: 10-26-2020 History SDOH Physica l Activity DPW 0 [facility] Start: 10-26-2020 History SDOH Financial 5 [facility] Start: 10-26-2020 Education 14 [facility] Start: 1945 Sex Assigned At Not on file [facility] Start: 01-09-2022 End: 08-15-2022 Exposure to SARS-CoV-2 (event) Not sure [facility] Start: 03-22-2022 End: 04-01-2022 Exposure to SARS-CoV-2 (event) Unable to assess [facility] Work Phone: Start: 08-10-2015 End: 04-11-2023 Cigarettes smoked current (pack per day) - Reported 2 [facility] Start: 08-10-2015 End: 06-05-2024 Tobacco use and exposure Smokeless tobacco non-user [facility] Start: 10-26-2020 End: 04-11-2023 Social connection and isolation panel [facility] Do you belong to any clubs or organizations such as uatsdin groups, unions, fraternal or athletic groups, or school groups? No [facility] Are you now , , , , never or living with a partner? [facility] How often to you hav e a drink containing alcohol? Never [facility] How many standard dr inks containing alcohol do you have on a typical day? Patient refused [facility] Do you feel stress - tense, restless, nervous, or anxious, or unable to sleep at night because your mind is troubled all the time - these days [OSQ] Only a little [facility] (I/We) worried vannesa er (my/our) food would run out before (I/we) got money to buy more. Never true [facility] Start: 1945 Sex Assigned At Male W [facility] Medical Equipment Procedure Code Equipment Code Equipment Origin al Text Equipment Identifier Dates [id number], [id number] Start: 11-11-2011 Comment on above: Test blood sugar(s) one times daily. Dx: 250.00. Insulin: No Test blood sugar(s) one time daily. Dx: 250.00. Insulin: No Goals Date Patient Goal Desired Activity /State Personal health goal Functional Status Date Assessment Result Facility 04-09-2015 Are you deaf, or do you have serious difficulty hearing No 04/09/2015 11:20 AM EDT Stephany Graves MA No [facility] 04-09-2015 Are you blind, or do you have serious difficulty seeing, even when wearing glasses No 04/09/2015 11:20 AM EDT Stephany Graves MA No [facility] 04-09-2015 Do you have serious difficulty walking or climbing stairs No 04/09/2015 11:20 AM EDT Stephany Graves MA No [facility] 04-09-2015 Do you have difficul ty dressing or bathing No 04/09/2015 11:20 AM EDT Stephany Graves MA [facility] 04-09-2015 Because of a physica l, mental, or emotional condition, do you have difficulty doing errands alone such as visiting a physician's office or shopping No 04/09/2015 11:20 AM EDT Stephany Graves MA [facility] Mental Status Date Assessment Result Facility 04-09-2015 Because of a physica l, mental, or emotional condition, do you have serious difficulty concentrating, remembering, or making decisions No 04/09/2015 11:20 AM EDT Stephany Graves MA No [facility] Clinical Notes 03-29-2011 to 04-15-2025 Telephone Encounter - Twin Cole RPh - 04/15/2025 9:09 AM EDTTelephone Encounter - Twin Cole RPh - 04/15/2025 9:09 AM EDTTelephone Encounter - Leidy Malone RN - 04/14/2025 3:18 PM EDT Note Date & Type Note Facility 04-15-2025 Telephone encount er Note [facility] Anticoagulation Episode Summary Anticoagulation Care Providers Provider Role Specialty Phone number Guanakito Reno MD [facility] Medicine [phone] Cal Mitchell is a 79 year old year old male patient being evaluated today for a Telemanagement visit. Patient is currently on the following anticoagulant(s) Warfarin. Labs Lab Results Component Value Date INR 2.6 04/14/2025 INR 2.5 03/23/2025 INR 1.8 (A) 02/19/2025 Lab Results Component Value Date HB 12.5 (L) 01/21/2025 HB 10.3 (L) 07/12/2024 HB 9.5 (L) 04/19/2024 Lab Results Component Value Date HCT 41.2 01/21/2025 HCT 34.7 (L) 07/12/2024 HCT 32.3 (L) 04/19/2024 Lab Results Component Value Date PLT 198 01/21/2025 PLT 190 07/12/2024 PLT 160 04/19/2024 Lab Results Component Value Date CREAT 2.34 (H) 01/21/2025 CREAT 2.40 (H) 07/12/2024 CREAT 2.35 (H) 04/19/2024 No components found for: "TBILI3" Lab Results Component Value Date ALT 19 01/21/2025 ALT 23 07/12/2024 ALT 15 03/25/2024 Lab Results Component Value Date AST 23 01/21/2025 AST 25 07/12/2024 AST 19 03/25/2024 Estimated Creatinine Clearance: 31.7 mL/min (A) (based on SCr of 2.34 mg/dL (H)). 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: Anticoagulation Episode Summary Current INR goal: 2.0-3.0 Assessment: INR result of 2.6 is therapeutic Plan: Current Warfarin Dosing As of 04/15/2025 Full warfarin instructions: 5 mg every day Left voice message daughter Advised patient to continue current weekly dose as noted above Next home INR check scheduled on 04/29/2025 Patient advised to call the PAC with any medication changes, bleeding/bruising concerns, recent changes in vitamin k consumption, if any procedures are coming up, if they have been ill or in the hospital, and if they have missed any doses of warfarin. Twin Cole RPh Clinical Pharmacist, Pharmacy Anticoagulation Clinic Pharmacy An[facility] Clinic Pager: [phone]. [facility] 04-15-2025 Miscellaneous Notes Formattin g of this note is different from the original. [facility] Anticoagulation Episode Summary Anticoagulation Care Providers Provider Role Specialty Phone number Guanakito Reno MD [facility] [phone] Cal Mitchell is a 79 year old year old male patient being evaluated today for a Telemanagement visit. Patient is currently on the following anticoagulant(s) Warfarin. Labs Lab Results Component Value Date INR 2.6 04/14/2025 INR 2.5 03/23/2025 INR 1.8 (A) 02/19/2025 Lab Results Component Value Date HB 12.5 (L) 01/21/2025 HB 10.3 (L) 07/12/2024 HB 9.5 (L) 04/19/2024 Lab Results Component Value Date HCT 41.2 01/21/2025 HCT 34.7 (L) 07/12/2024 HCT 32.3 (L) 04/19/2024 Lab Results Component Value Date PLT 198 01/21/2025 PLT 190 07/12/2024 PLT 160 04/19/2024 Lab Results Component Value Date CREAT 2.34 (H) 01/21/2025 CREAT 2.40 (H) 07/12/2024 CREAT 2.35 (H) 04/19/2024 No components found for: "TBILI3" Lab Results Component Value Date ALT 19 01/21/2025 ALT 23 07/12/2024 ALT 15 03/25/2024 Lab Results Component Value Date AST 23 01/21/2025 AST 25 07/12/2024 AST 19 03/25/2024 Estimated Creatinine Clearance: 31.7 mL/min (A) (based on SCr of 2.34 mg/dL (H)). 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: Anticoagulation Episode Summary Current INR goal: 2.0-3.0 Assessment: INR result of 2.6 is therapeutic Plan: Current Warfarin Dosing As of 04/15/2025 Full warfarin instructions: 5 mg every day Left voice message daughter Advised patient to continue current weekly dose as noted above Next home INR check scheduled on 04/29/2025 Patient advised to call the PAC with any medication changes, bleeding/bruising concerns, recent changes in vitamin k consumption, if any procedures are coming up, if they have been ill or in the hospital, and if they have missed any doses of warfarin. Twin Cole RPh Clinical Pharmacist, Pharmacy Anticoagulation Clinic Pharmacy [facility] Clinic Pager: [phone]. documented in this encounter [facility] 04-14-2025 Telephone encount er Note Gustavo calls back and notified of provider recommendation below. Voices understanding. Leidy Malone RN [facility] 04-14-2025 Miscellaneous Notes Formattin g of this note might be different from the original. Gustavo calls back and notified of provider recommendation below. Voices understanding. Leidy Malone RN Phoned Gustavo left message to return call and ask to speak to a nurse. yes Patient son in law Gsutavo calling he has been giving the patient Tylenol 500 mg two tablets twice daily since his fracture right shoulder at almost the end of February. He is asking if it is alright that they are still giving it to him? Please advise documented in this encounter [facility] 04-14-2025 Telephone encount er Note Phoned Gustavo left message to return call and ask to speak to a nurse. [facility] 04-14-2025 Telephone encount er Note yes [facility] 04-14-2025 Telephone encount er Note Patient son in law Gustavo calling he has been giving the patient Tylenol 500 mg two tablets twice daily since his fracture right shoulder at almost the end of February. He is asking if it is alright that they are still giving it to him? Please advise [facility] 04-08-2025 Telephone encount er Note The following approved medication requests have been transmitted electronically. Requested Prescriptions Pending Prescriptions Disp Refills warfarin (COUMADIN) 5 mg tablet 90 tablet 3 Sig: Take 1 tablet by mouth once daily. warfarin (COUMADIN) 5 mg tablet 30 tablet 0 Sig: Take 1 tablet by mouth once daily. Carolina Landeros APRN.CNP [facility] 04-08-2025 Miscellaneous Notes Formattin g of this note is different from the original. The following approved medication requests have been transmitted electronically. Requested Prescriptions Pending Prescriptions Disp Refills warfarin (COUMADIN) 5 mg tablet 90 tablet 3 Sig: Take 1 tablet by mouth once daily. warfarin (COUMADIN) 5 mg tablet 30 tablet 0 Sig: Take 1 tablet by mouth once daily. Carolina Landeros APRN.CNP Prescription Refill Information The patient has been identified by name and date of : Yes Caregiver verified no other encounters exist for this prescription request: Yes Caregiver confirmed with patient/requestor that no other refills are due, in the near future, with this provider at this time: Yes The last office visit in the department: 03/06/25 Does the patient have a future office visit with this provider/department: Yes, 07/23/25 Requested Prescriptions Pending Prescriptions Disp Refills warfarin (COUMADIN) 5 mg tablet 100 tablet 5 Si.5 mg on Monday, 5 mg all other days or as directed *Per last pharmacy note on 03/24/25, pt is taking coumadin 5mg daily. Rx pending for 5mg daily. *Pt needs short term sent to [facility], 90 day to [facility]. Darrell Meyer LPN April 08, 2025 2:33 PM documented in this encounter [facility] 04-08-2025 Telephone encount er Note Prescription Refill Information The patient has been identified by name and date of : Yes Caregiver verified no other encounters exist for this prescription request: Yes Caregiver confirmed with patient/requestor that no other refills are due, in the near future, with this provider at this time: Yes The last office visit in the department: 03/06/25 Does the patient have a future office visit with this provider/department: Yes, 07/23/25 Requested Prescriptions Pending Prescriptions Disp Refills lisinopril (ZESTRIL) 10 mg tablet 90 tablet 3 Sig: Take 1 tablet by mouth once daily. *Last rx written 01/21/25 #90 with 3 refills. Pt is not due for refill. message to pt advising of the same. Darrell Meyer LPN April 08, 2025 2:38 PM [facility] 04-08-2025 Miscellaneous Notes Formattin g of this note is different from the original. Prescription Refill Information The patient has been identified by name and date of : Yes Caregiver verified no other encounters exist for this prescription request: Yes Caregiver confirmed with patient/requestor that no other refills are due, in the near future, with this provider at this time: Yes The last office visit in the department: 03/06/25 Does the patient have a future office visit with this provider/department: Yes, 07/23/25 Requested Prescriptions Pending Prescriptions Disp Refills lisinopril (ZESTRIL) 10 mg tablet 90 tablet 3 Sig: Take 1 tablet by mouth once daily. *Last rx written 01/21/25 #90 with 3 refills. Pt is not due for refill. message to pt advising of the same. Darrell Meyer LPN April 08, 2025 2:38 PM documented in this encounter [facility] 04-08-2025 Telephone encount er Note Prescription Refill Information The patient has been identified by name and date of : Yes Caregiver verified no other encounters exist for this prescription request: Yes Caregiver confirmed with patient/requestor that no other refills are due, in the near future, with this provider at this time: Yes The last office visit in the department: 03/06/25 Does the patient have a future office visit with this provider/department: Yes, 07/23/25 Requested Prescriptions Pending Prescriptions Disp Refills warfarin (COUMADIN) 5 mg tablet 100 tablet 5 Si.5 mg on Monday, 5 mg all other days or as directed *Per last pharmacy note on 03/24/25, pt is taking coumadin 5mg daily. Rx pending for 5mg daily. *Pt needs short term sent to [facility], 90 day to [facility]. Darrell Meyer LPN April 08, 2025 2:33 PM [facility] 04-08-2025 Evaluation note Diagnosis Hypertensive kidney disease with stage 3 chronic kidney disease, unspecified whether stage 3a or 3b CKD (HCC) Type 2 diabetes mellitus with stage 3 chronic kidney disease, without long-term current use of insulin, unspecified whether stage 3a or 3b CKD (HCC) Chronic renal disease, stage IV (HCC) Chronic kidney disease, Stage IV (severe) documented in this encounter [facility]06-13-2025 Telephone encounter Note* Telephone Encounter - Niels Rodriges RN - 03/28/2025 1:04 PM EDT Faxed recent ov notes to [facility] per daughter, January request. . January reports she talked to [facility] about patient going to live there and [facility] instructed her to have pcp office send an H & P to them for review. [facility]06-13-2025 Miscellaneous Notes* Telephone Encounter - Niels Rodriges RN - 03/28/2025 1:04 PM EDT Faxed recent ov notes to [facility] per daughter, January request. . January reports she talked to [facility] about patient going to live there and [facility] instructed her to have pcp office send an H & P to them for review. [facility] Telephone encounter Note * Telephone Encounter - Alejandro Molina RPh - 03/24/2025 10:57 AM EDT [facility] Anticoagulation Episode Summary Anticoagulation Care Providers Provider Role Specialty Phone number Guanakito Reno MD [facility] [phone] Cal Mitchell is a 79 year old year old male patient being evaluated today for a Telemanagementvisit. Patient is currently on the following anticoagulant(s) Warfarin. Labs PT INR (no units) Date Value 09/28/2022 1.9 (self reporting) 01/24/2022 2.1 biotel 10/26/2021 2.1 (Biotel) INR (POCT) (no units) Date Value 07/23/2024 1.4 INR Home CoaguChek (no units) Date Value 03/23/2025 2.5 02/19/2025 1.8 01/30/2025 4.3 Estimated Creatinine Clearance: 31.7 mL/min (A) (based on SCr of 2.34 mg/dL (H)). 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: Anticoagulation Episode Summary Current INR goal: 2.0-3.0 Assessment: INR result of 2.5 is therapeutic Plan: Current Warfarin Dosing As of 03/24/2025 Full warfarin instructions: 5 mg every day Left voice message Advised patient to continue current weekly dose as noted above Next INR check due on 04/07/2025 Patient instructed to call [facility] at [phone] with any questionsor concerns. Alejandro Molina RPh Clinical Pharmacist, [facility] Pager: [phone] [facility]06-09-2025 Miscellaneous Notes* Telephone Encounter - Alejandro Molina RPh - 03/24/2025 10:57 AM EDT [facility] Anticoagulation Episode Summary Anticoagulation Care Providers Provider Role Specialty Phone number Guanakito Reno MD [facility] [phone] Cal Mitchell is a 79 year old year old male patient being evaluated today for a Telemanagementvisit. Patient is currently on the following anticoagulant(s) Warfarin. Labs PT INR (no units) Date Value 09/28/2022 1.9 (self reporting) 01/24/2022 2.1 biotel 10/26/2021 2.1 (Biotel) INR (POCT) (no units) Date Value 07/23/2024 1.4 INR Home CoaguChek (no units) Date Value 03/23/2025 2.5 02/19/2025 1.8 01/30/2025 4.3 Estimated Creatinine Clearance: 31.7 mL/min (A) (based on SCr of 2.34 mg/dL (H)). 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: Anticoagulation Episode Summary Current INR goal: 2.0-3.0 Assessment: INR result of 2.5 is therapeutic Plan: Current Warfarin Dosing As of 03/24/2025 Full warfarin instructions: 5 mg every day Left voice message Advised patient to continue current weekly dose as noted above Next INR check due on 04/07/2025 Patient instructed to call [facility] at [phone] with any questionsor concerns. Alejandro Molina RPh Clinical Pharmacist, [facility] Pager: [phone] documented [facility] Evaluation note* Diagnosis Onset Date Resolution Status Admit Date Closed fracture of right pro ximal humerus acute March 07, 2025 1 2:49pm [facility] Work Phone: 1(162) 696-428105-22-2025 NoteHNO ID: [id number] Author: CAROLINA LANDEROS APRN.PITCH WORKER Service: ? Author Type: Nurse Practitioner Type: Progress Notes Filed: 03/06/2025 16:30 Note Text: This is a 79 year old male who presents today with: No chief complaint on file. HISTORY OF PRESENT ILLNESS: Cal Mitchell is a 79 year old male. No chief complaint on file. Cal is an 79-year-old male with a history of diabetes and CKD stage 4, presenting for follow-up after a recent fall resulting in a right arm fracture. Right Arm Fracture: - Sustained a right arm fracture after falling off a rollator in the driveway yesterday. - Described as "slightly displaced." - Pain severity rated as 5/10 at rest and 9-10/10 with movement. - Currently taking Jordan for pain management. - Denies pain elsewhere from the fall. Diabetes: - Recent hemoglobin A1c was 6.7%. Chronic Kidney Disease Stage 4: - Recent labs show alkaline phosphatase slightly elevated. PAST MEDICAL HISTORY: PAST MEDICAL HISTORY Diagnosis Date Actinic keratosis 10/2004 Aortic valve stenosis BPH (benign prostatic hyperplasia) Carotid artery stenosis Chronic airway obstruction, not elsewhere classified 10/2004 Diabetes (HCC) Diverticulosis of colon (without mention of hemorrhage) Ectatic thoracic aorta 06/07/2018 06/07/18 Chest CTA: There is atherosclerotic calcification of the thoracic aorta with mild fusiform ectasia of the descending component measuring 3.2 x 3.1 cm Essential hypertension Hyperlipidemia Impacted cerumen 10/2004 Obesity, unspecified 11/2003 Other and unspecified hyperlipidemia 10/2003 Other symptoms involving cardiovascular system 10/2004 Peripheral vascular disease, unspecified 10/2004 R carotid Unspecified essential hypertension 04/2004 PAST SURGICAL HISTORY Procedure Laterality Date ARTL CATHJ/CANNULJ MNTR/TRANSFUSION SPX PRQ 04-17-14 COLONOSCOPY FLX DX W/COLLJ SPEC WHEN PFRMD 40 years ago Colonoscopy COLONOSCOPY FLX DX W/COLLJ SPEC WHEN PFRMD 03/02/11 DSTRJ LESION PENIS SIMPLE CHEMICAL 10/20 PAST SURGICAL HISTORY OF Skin tag removals - bilateral axillary REMOVAL IMPACTED CERUMEN INSTRUMENTATION UNILAT 10/20 TEAEC W/PATCH GRF CAROTID VERTB SUBCLAV NECK INC 04-17-14 RIGHT ALLERGIES Patient has no known allergies. MEDICATIONS Current Outpatient Medications Medication Sig HYDROcodone-acetaminophen (NORCO) 5-325 mg per tablet Take 1 tablet by mouth every 6 hours as needed for pain (only for severe pain that is not responsive to your other pain medications) for up to 3 days. clopidogrel (PLAVIX) 75 mg tablet Take 1 tablet by mouth once daily. escitalopram oxalate (LEXAPRO) 10 mg tablet Take 1 tablet by mouth once daily. finasteride (PROSCAR) 5 mg tablet Take 1 tablet by mouth once daily. lisinopril (ZESTRIL) 10 mg tablet Take 1 tablet by mouth once daily. metoprolol succinate ER (TOPROL XL) 25 mg 24 hr tablet Take 1 tablet by mouth once daily. memantine (NAMENDA) 10 mg tablet Take 1 tablet by mouth once daily. loratadine 5 mg chewable tablet Take 1 tablet by mouth once daily. atorvastatin (LIPITOR) 80 mg tablet Take 1 tablet by mouth daily at bedtime. For cholesterol. iv contrast (will be provided with radiology test) CTA ABD/PEL - No IV access, insert saline lock prior to the sedation, infusion, injection for imaging exam. Discontinue saline lock post exam. If Pt. has a central line or IVAD, may access for administration according to line specific nursing protocol. Once exam is complete flush line and de-access according to line specific nursing protocol in the CT contrast administration guidelines link. warfarin (COUMADIN) 5 mg tablet 7.5 mg on Monday, 5 mg all other days or as directed (Patient taking differently: 5 mg everyday or as directed) nitroglycerin sublingual (NITROQUICK) 0.4 mg SL tablet Dissolve 1 tablet under the tongue as needed. for chest pain,every 5 min x3 blood sugar diagnostic (MyTrainerUCH ULTRA TEST) test strip Test blood sugar(s) one times daily. Dx: 250.00. Insulin: No Lancets (ONE TOUCH DELICA) Misc lancets Test blood sugar(s) one time daily. Dx: 250.00. Insulin: No No current facility-administered medications for this visit. FAMILY HISTORY Problem Relation Age of Onset Heart Mother of CHF Stroke Maternal Grandfather Social History Tobacco Use Smoking status: Former Current packs/day: 0.00 Average packs/day: 2.0 packs/day for 10.0 years (20.0 ttl pk-yrs) Types: Cigarettes Start date: 12/05/1975 Quit date: 12/05/1985 Years since quittin.2 Smokeless tobacco: Never Vaping Use Vaping status: Never Used Substance Use Topics Alcohol use: No Comment: none now; social in past Drug use: No REVIEW OF SYSTEMS Musculoskeletal: (+) arm pain EXAM: BP 124/58 Pulse 68 SpO2 96% PHYSICAL EXAM: GENERAL: NAD, alert and oriented. SKIN: Unremarkable, no rash or skin lesions. HEAD: Normocephalic. EXTREMITIES: Right upper extremity in a sl (more content not included)... [facility]05-08-2025 Telephone encounter Note* Telephone Encounter - Jimmy Carrizales, [facility] - 02/20/2025 8:59 AM EDT [facility] Anticoagulation Episode Summary Anticoagulation Care Providers Provider Role Specialty Phone number Guanakito Reno MD [facility] [phone] Cal Mitchell is a 79 year old year old male patient being evaluated today for a Telemanagementvisit. Patient is currently on the following anticoagulant(s) Warfarin. Labs Lab Results Component Value Date INR 1.8 (A) 02/19/2025 INR 4.3 (A) 01/30/2025 INR 1.8 (A) 01/07/2025 Lab Results Component Value Date HB 12.5 (L) 01/21/2025 HB 10.3 (L) 07/12/2024 HB 9.5 (L) 04/19/2024 Lab Results Component Value Date HCT 41.2 01/21/2025 HCT 34.7 (L) 07/12/2024 HCT 32.3 (L) 04/19/2024 Lab Results Component Value Date PLT 198 01/21/2025 PLT 190 07/12/2024 PLT 160 04/19/2024 Lab Results Component Value Date CREAT 2.34 (H) 01/21/2025 CREAT 2.40 (H) 07/12/2024 CREAT 2.35 (H) 04/19/2024 No components found for: "TBILI3" Lab Results Component Value Date ALT 19 01/21/2025 ALT 23 07/12/2024 ALT 15 03/25/2024 Lab Results Component Value Date AST 23 01/21/2025 AST 25 07/12/2024 AST 19 03/25/2024 Estimated Creatinine Clearance: 31.7 mL/min (A) (based on SCr of 2.34 mg/dL (H)). 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 Paroxysmal atrial fibrillation (hcc) Anticoagulation Episode Summary Current INR goal: 2.0-3.0 Assessment: INR result of 1.8 is SUBtherapeutic due to: unknown cause - did not speak to patient Plan: Current Warfarin Dosing As of 02/20/2025 Full warfarin instructions: 02/20: 7.5 mg; Otherwise 5 mg every day Left voice message Advised patient to increase dose for 1 day only then resume weekly regimen Next home INR check scheduled on 03/06/2025 Patient advised to call the PAC with any medication changes, bleeding/bruising concerns, recent changes in vitamin k consumption, if any procedures are coming up, if they have been ill or in the hospital, and if they have missed any doses of warfarin. Jimmy Carrizales RPh Clinical Pharmacist, [facility] Pager: [phone]. [facility]05-08-2025 Miscellaneous Notes* Telephone Encounter - Jimmy Carrizales RPh - 02/20/2025 8:59 AM EDT [facility] Anticoagulation Episode Summary Anticoagulation Care Providers Provider Role Specialty Phone number Guanakito Reno MD [facility] [phone] Cal Mitchell is a 79 year old year old male patient being evaluated today for a Telemanagementvisit. Patient is currently on the following anticoagulant(s) Warfarin. Labs Lab Results Component Value Date INR 1.8 (A) 02/19/2025 INR 4.3 (A) 01/30/2025 INR 1.8 (A) 01/07/2025 Lab Results Component Value Date HB 12.5 (L) 01/21/2025 HB 10.3 (L) 07/12/2024 HB 9.5 (L) 04/19/2024 Lab Results Component Value Date HCT 41.2 01/21/2025 HCT 34.7 (L) 07/12/2024 HCT 32.3 (L) 04/19/2024 Lab Results Component Value Date PLT 198 01/21/2025 PLT 190 07/12/2024 PLT 160 04/19/2024 Lab Results Component Value Date CREAT 2.34 (H) 01/21/2025 CREAT 2.40 (H) 07/12/2024 CREAT 2.35 (H) 04/19/2024 No components found for: "TBILI3" Lab Results Component Value Date ALT 19 01/21/2025 ALT 23 07/12/2024 ALT 15 03/25/2024 Lab Results Component Value Date AST 23 01/21/2025 AST 25 07/12/2024 AST 19 03/25/2024 Estimated Creatinine Clearance: 31.7 mL/min (A) (based on SCr of 2.34 mg/dL (H)). 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: [facility] (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 Paroxysmal atrial fibrillation (hcc) Anticoagulation Episode Summary Current INR goal: 2.0-3.0 Assessment: INR result of 1.8 is SUBtherapeutic due to: unknown cause - did not speak to patient Plan: Current Warfarin Dosing As of 02/20/2025 Full warfarin instructions: 02/20: 7.5 mg; Otherwise 5 mg every day Left voice message Advised patient to increase dose for 1 day only then resume weekly regimen Next home INR check scheduled on 03/06/2025 Patient advised to call the PAC with any medication changes, bleeding/bruising concerns, recent changes in vitamin k consumption, if any procedures are coming up, if they have been ill or in the hospital, and if they have missed any doses of warfarin. Jimmy Carrizales [facility] Clinical Pharmacist, Pharmacy Anticoagulation Clinic Pharm[facility] Pager: [phone]. documented in [facility] encounter[facility]04-[facility] Telephone encounter Note * Telephone Encounter - Kamran Ayon [facility] - 01/31/2025 12:43 PM EDT [facility] Anticoagulation Episode Summary Anticoagulation Care Providers Provider Role Specialty Phone number Guanakito Reno MD [facility] [phone] Cal Mitchell is a 79 year old year old male patient being evaluated today for a Telemanagementvisit. Patient is currently on the following anticoagulant(s) Warfarin. Labs PT INR (no units) Date Value 09/28/2022 1.9 (self reporting) 01/24/2022 2.1 biotel 10/26/2021 2.1 (Biotel) INR (POCT) (no units) Date Value 07/23/2024 1.4 INR Home CoaguChek (no units) Date Value 01/30/2025 4.3 01/07/2025 1.8 12/27/2024 1.5 Hemoglobin (g/dL) Date Value 01/21/2025 12.5 10/06/2020 12.3 Hematocrit (%) Date Value 01/21/2025 41.2 10/06/2020 39.0 Platelet Count (k/uL) Date Value 01/21/2025 198 10/06/2020 189 Creatinine (mg/dL) Date Value 01/21/2025 2.34 07/12/2024 2.40 04/19/2024 2.35 10/06/2020 1.60 07/18/2019 1.46 03/18/2019 1.51 Bilirubin, Total (mg/dL) Date Value 01/21/2025 0.6 10/06/2020 0.4 ALT (U/L) Date Value 01/21/2025 19 10/06/2020 16 AST (U/L) Date Value 01/21/2025 23 10/06/2020 17 Estimated Creatinine Clearance: 31.7 mL/min (A) (based on SCr of 2.34 mg/dL (H)). 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: [facility] (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 Paroxysmal atrial fibrillation (hcc) Anticoagulation Episode Summary Current INR goal: 2.0-3.0 Assessment: INR result of 4.3 is SUPRAtherapeutic due to: unknown cause - did not speak to patient Plan: Current Warfarin Dosing As of 01/31/2025 Full warfarin instructions: 01/31: Hold; Otherwise 5 mg every day Left voice message and sent MYC message Advised patient to hold 1 dose then continue current regimen Next home INR check scheduled on 02/14/2025 Patient advised to call the PAC with any medication changes, bleeding/bruising concerns, recent changes in vitamin k consumption, if any procedures are coming up, if they have been ill or in the hospital, and if they have missed any doses of warfarin. Kamran Ayon RPh Clinical Pharmacist, Pharmacy Anticoagulation Clinic [facility] Pager: [phone]. [facility]04-18-2025 Miscellaneous Notes* Telephone Encounter - Kamran Ayon RPh - 01/31/2025 12:43 PM EDT [facility] Anticoagulation Episode Summary Anticoagulation Care Providers Provider Role Specialty Phone number Guanakito Reno MD [facility] [phone] Cal Mitchell is a 79 year old year old male patient being evaluated today for a Telemanagementvisit. Patient is currently on the following anticoagulant(s) Warfarin. Labs PT INR (no units) Date Value 09/28/2022 1.9 (self reporting) 01/24/2022 2.1 biotel 10/26/2021 2.1 (Biotel) INR (POCT) (no units) Date Value 07/23/2024 1.4 INR Home CoaguChek (no units) Date Value 01/30/2025 4.3 01/07/2025 1.8 12/27/2024 1.5 Hemoglobin (g/dL) Date Value 01/21/2025 12.5 10/06/2020 12.3 Hematocrit (%) Date Value 01/21/2025 41.2 10/06/2020 39.0 Platelet Count (k/uL) Date Value 01/21/2025 198 10/06/2020 189 Creatinine (mg/dL) Date Value 01/21/2025 2.34 07/12/2024 2.40 04/19/2024 2.35 10/06/2020 1.60 07/18/2019 1.46 03/18/2019 1.51 Bilirubin, Total (mg/dL) Date Value 01/21/2025 0.6 10/06/2020 0.4 ALT (U/L) Date Value 01/21/2025 19 10/06/2020 16 AST (U/L) Date Value 01/21/2025 23 10/06/2020 17 Estimated Creatinine Clearance: 31.7 mL/min (A) (based on SCr of 2.34 mg/dL (H)). 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: [facility] (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 Paroxysmal atrial fibrillation (hcc) Anticoagulation Episode Summary Current INR goal: 2.0-3.0 Assessment: INR result of 4.3 is SUPRAtherapeutic due to: unknown cause - did not speak to patient Plan: Current Warfarin Dosing As of 01/31/2025 Full warfarin instructions: 01/31: Hold; Otherwise 5 mg every day Left voice message and sent MYC message Advised patient to hold 1 dose then continue current regimen Next home INR check scheduled on 02/14/2025 Patient advised to call the PAC with any medication changes, bleeding/bruising concerns, recent changes in vitamin k consumption, if any procedures are coming up, if they have been ill or in the hospital, and if they have missed any doses of warfarin. Kamran Ayon RPh Clinical Pharmacist, Pharmacy Anticoagulation Clinic [facility] Pager: [phone]. documented in this encounterGerman [facility]04-10-[facility] Progress note* Result Encounter Note - Carolina Landeros APRN.CNP - 01/23/2025 8:10 AM EDT Diabetes is controlled but blood sugars are increasing. Hemoglobin A1c is 6.7%. With the chronic kidney disease stage IV, he would likely need to start on insulin and I do not think it is necessary at this time. Alkaline phosphatase is slightly elevated likely related to the chronic kidney disease.Blood counts have improved. Cholesterol levels, magnesium, and B12 are all normal. [facility]04-10-2025 Miscellaneous Notes* Result Encounter Note - Carolina Landeros APRN.CNP - 01/23/2025 8:10 AM EDT Diabetes is controlled but blood sugars are increasing. Hemoglobin A1c is 6.7%. With the chronic kidney disease stage IV, he would likely need to start on insulin and I do not think it is necessary at this time. Alkaline phosphatase is slightly elevated likely related to the chronic kidney disease.Blood counts have improved. Cholesterol levels, magnesium, and B12 are all normal. documented in this encounterGerman Hospital04-08-2025 NoteHNO ID: [id number] Author: GEOVANNA HINDS MA Service: ? Author Type: Electrical Electronics Engineer Type: Progress Notes Filed: 01/21/2025 17:08 Note Text: Ambulatory Ear Lavage Pre-treatment: No pre-treatment Treatment: Both ears Equipment and Irrigation solution and Volume used: Single use syringe with single use irrigation tip Water Total Irrigation Volume: 250 ml Return flow appearance: Yellow Patient tolerated procedure: yes Tympanic membrane assessment: Tympanic membrane assessed by LIP pre and post procedure Geovanna Hinds MA January 21, 2025 5:08 [facility]04-08-2025 History of Present illness Narrative* Geovanna Hinds MA - 01/21/2025 5:07 PM EDT Ambulatory Ear Lavage Pre-treatment: No pre-treatment Treatment: Both ears Equipment and Irrigation solution and Volume used: Single use syringe with single use irrigation tip Water Total Irrigation Volume: 250 ml Return flow appearance: Yellow Patient tolerated procedure: yes Tympanic membrane assessment: Tympanic membrane assessed by LIP pre and post procedure eGovanna Hinds MA January 21, 2025 5:08 PM * Carolina Landeros APRN.PITCH WORKER - 01/21/2025 3:43 PM EDT This is a 79 year old male who presents today with: Patient presents with: 6 Month Exam HISTORY OF PRESENT ILLNESS: Cal Mitchell is a 79 year old male. Patient presents with: 6 Month Exam Eyes are watery and itch for the past couple weeks. DM: Reports overall feeling well. Medication side effects: No medication. Home sugar checks: No Hypoglycemic spells: No. Watching diet: No. Unexpected weight loss: No. Polyuria, polydipsia: No. Vision Changes: No. Foot lesions or numbness or pain: No. HTN: Patient is compliant with meds Not taking lisinopril Monitors bp at home: Yes. [place] checks it, ok there Denies side effects: Maybe. Gets lightheaded sometimes getting out of car. Chest pain: No. Dyspnea: No. With exertion Edema: No. Palpitations: No. Syncope: No. Headache: No. Dizziness: Some. Dementia- daughter helping with history taking PAST MEDICAL HISTORY: PAST MEDICAL HISTORY Diagnosis Date Actinic keratosis 10/2004 Aortic valve stenosis BPH (benign prostatic hyperplasia) Carotid artery stenosis Chronic airway obstruction, not elsewhere classified 10/2004 Diabetes (HCC) Diverticulosis of colon (without mention of hemorrhage) Ectatic thoracic aorta 06/07/2018 06/07/18 Chest CTA: There is atherosclerotic calcification of the thoracic aorta with mild fusiform ectasia of the descending component measuring 3.2 x 3.1 cm Essential hypertension Hyperlipidemia Impacted cerumen 10/2004 Obesity, unspecified 11/2003 Other and unspecified hyperlipidemia 10/2003 Other symptoms involving cardiovascular system 10/2004 Peripheral vascular disease, unspecified 10/2004 R carotid Unspecified essential hypertension 04/2004 PAST SURGICAL HISTORY Procedure Laterality Date ARTL CATHJ/CANNULJ MNTR/TRANSFUSION SPX PRQ 7-3-14 COLONOSCOPY FLX DX W/COLLJ SPEC WHEN PFRMD 40 years ago Colonoscopy COLONOSCOPY FLX DX W/COLLJ SPEC WHEN PFRMD 03/02/11 DSTRJ LESION PENIS SIMPLE CHEMICAL 10/20 PAST SURGICAL HISTORY OF Skin tag removals - bilateral axillary REMOVAL IMPACTED CERUMEN INSTRUMENTATION UNILAT 10/20 TEAEC W/PATCH GRF CAROTID VERTB SUBCLAV NECK INC -3-14 RIGHT ALLERGIES Patient has no known allergies. MEDICATIONS Current Outpatient Medications Medication Sig lisinopril (ZESTRIL) 20 mg tablet Take 1 tablet by mouth once daily. atorvastatin (LIPITOR) 80 mg tablet Take 1 tablet by mouth daily at bedtime. For cholesterol. clopidogrel (PLAVIX) 75 mg tablet Take 1 tablet by mouth once daily. metoprolol succinate ER (TOPROL XL) 25 mg 24 hr tablet Take 1 tablet by mouth once daily. escitalopram oxalate (LEXAPRO) 10 mg tablet Take 1 tablet by mouth once daily. warfarin (COUMADIN) 5 mg tablet 7.5 mg on Monday, 5 mg all other days or as directed (Patient taking differently: 5 mg everyday or as directed) memantine (NAMENDA) 10 mg tablet Take 1 tablet by mouth once daily. nitroglycerin sublingual (NITROQUICK) 0.4 mg SL tablet Dissolve 1 tablet under the tongue as needed. for chest pain,every 5 min x3 blood sugar diagnostic (ONETOUCH ULTRA TEST) test strip Test blood sugar(s) one times daily. Dx: 250.00. Insulin: No Lancets (ONE TOUCH DELICA) [facility] [place]anc[place] Test blood sugar(s) one time daily. Dx: 250.00. Insulin: No lisinopril (ZESTRIL) 20 mg tablet Take 1 tablet by mouth once daily. atorvastatin (LIPITOR) 80 mg tablet Take 1 tablet by mouth daily at bedtime. For cholesterol. iv contrast (will be provided with radiology test) CTA ABD/PEL - No IV access, insert saline lock prior to the sedation, infusion, injection for imaging exam. Discontinue saline lock post exam. If Pt. has a central line or IVAD, may access for administration according to line specific nursing protocol. Once exam is complete flush line and de-access according to line specific nursing protocol in the CT contrast administration guidelines link. enoxaparin (LOVENOX) 100 mg/mL syrg Inject 1 mL subcutaneously once daily. Inject entire contents of one(1) syringe finasteride (PROSCAR) 5 mg tablet Take 1 tablet by mouth once daily. acetaminophen (TYLENOL) 500 mg tablet Take 500 mg by mouth every 8 hours as needed. (Patient not taking: Reported on 08/06/2024) No current facility-administered medications for this visit. FAMILY HISTORY Problem Relation Age of Onset Heart Mother of CHF Stroke Maternal Grandfather Social History Tobacco Use Smoking status: Former Current packs/day: 0.00 Average packs/day: 2.0 packs/day for 10.0 years (20.0 ttl pk-yrs) Types: Cigarettes Start date: 12/05/1975 Quit date: 12/05/1985 Years since quittin.1 Smokeless tobacco: Never Vaping Use Vaping status: Never Used Substance Use Topics Alcohol use: No Comment: none now; social in past Drug use: No EXAM: BP 122/60 Pulse (!) 59 Temp 36.4 C (97.6 F) (Left Tympanic) Wt 117 kg (258 lb) SpO2 97% BMI 37.02 kg/m PHYSICAL EXAM: Physical Exam Vitals reviewed. Constitutional: Appearance: Normal appearance. He is obese. HENT: Head: Normocephalic. Right Ear: Ear canal and external ear normal. There is impacted cerumen. Left Ear: Ear canal and external ear normal. There is impacted cerumen. Nose: Congestion and rhinorrhea present. Comments: Clear drainage- boggy Mouth/Throat: Pharynx: Posterior oropharyngeal erythema present. No oropharyngeal exudate. Eyes: Comments: Conjunctiva gray. [place] and itchy Cardiovascular: Rate and Rhythm: Normal rate and regular rhythm. Heart sounds: Murmur heard. Comments: High pitched harsh aortic systolic murmur Pulmonary: Effort: Pulmonary effort is normal. Breath sounds: Normal breath sounds. Abdominal: General: Bowel sounds are normal. Palpations: Abdomen is soft. Tenderness: There is abdominal tenderness. There is rebound. There is no guarding. Musculoskeletal: General: Normal range of motion. Right lower leg: No edema. Left lower leg: No edema. Comments: Walks w/ a cane, moves all ext. Without difficulty Skin: General: Skin is warm and dry. Neurological: Mental Status: He is alert and oriented to person, place, and time. Psychiatric: Comments: Smiles, poor historian LABS: check labs ASSESSMENT/PLAN: 1. Hyperlipidemia, mixed - ICD9: 272.2, ICD10: E78.2 (primary diagnosis) - Control undetermined, due for labs - Counseled on healthy diet and regular exercise - LIPID PANEL, NONFASTING - VITAMIN B12 2. Paroxysmal atrial fibrillation (HCC) - ICD9: 427.31, ICD10: I48.0 On warfarin - CLOPIDOGREL 75 MG TABLET - METOPROLOL SUCCINATE ER 25 MG TABLET,EXTENDED RELEASE 24 HR - COMPLETE BLOOD COUNT AND DIFFERENTIAL 3. Benign prostatic hyperplasia without lower urinary tract symptoms - ICD9: 600.00, ICD10: N40.0 Stable - FINASTERIDE 5 MG TABLET 4. Hypertensive kidney disease with stage 3 chronic kidney disease, unspecified whether stage 3a or3b CKD (HCC) - ICD9: 403.90, 585.3, ICD10: I12.9, N18.30 - Controlled - Recommend home blood pressure monitoring, to bring results to next visit - Encouraged sodium restriction, DASH or Mediterranean diet - Recommend regular aerobic exercise - eGFR: 26 Stable - Counseled on avoiding NSAIDs, adequate hydration - LISINOPRIL 10 MG TABLET - COMPREHENSIVE METABOLIC PANEL - VITAMIN B12 5. Mixed dementia (HCC) - ICD9: 331.0, 294.10, 290.40, ICD10: G30.9, F01.50, F02.80 Ongoing- worsening - ESCITALOPRAM 10 MG TABLET - MEMANTINE 10 MG TABLET - COMPREHENSIVE METABOLIC PANEL - COMPLETE BLOOD COUNT AND DIFFERENTIAL 6. Essential hypertension - ICD9: 401.9, ICD10: I10 - Controlled - Recommend home blood pressure monitoring, to bring results to next visit - Encouraged sodium restriction, DASH or Mediterranean diet - Recommend regular aerobic exercise - VITAMIN B12 - MAGNESIUM 7. Peripheral arterial disease - ICD9: 443.9, ICD10: I73.9 Stable, can't walk far - METOPROLOL SUCCINATE ER 25 MG TABLET,EXTENDED RELEASE 24 HR - VITAMIN B12 8. Aortic valve stenosis, etiology of cardiac valve disease unspecified - ICD9: 424.1, ICD10: I35.0 Ongoing, follows with Dr. Reddy - METOPROLOL SUCCINATE ER 25 MG TABLET,EXTENDED RELEASE 24 HR 9. Ectatic thoracic aorta - ICD9: 447.71, ICD10: I77.810 Stable at 3 cm 10. Type 2 diabetes mellitus with stage 3 chronic kidney disease, without long- term current use of insulin, unspecified whether stage 3a or 3b CKD (HCC) - ICD9: 250.40, 585.3, ICD10: E11.22, N18.30 - Control undetermined, due for labs - no meds - LISINOPRIL 10 MG TABLET - HEMOGLOBIN A1C - VITAMIN B12 11. Chronic renal disease, stage IV (HCC) - ICD9: 585.4, ICD10: N18.4 - eGFR: 26 Stable - Counseled on avoiding NSAIDs, adequate hydration - LISINOPRIL 10 MG TABLET - COMPREHENSIVE METABOLIC PANEL 12. 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 Obesity, Class II, BMI 35-39.9 - ICD9: 278.00, ICD10: E66.812 Stable 14. Viral conjunctivitis - ICD9: 077.99, ICD10: B30.9 - see medication orders - course and contagiousness issues discussed, including hand washing. - Instructed to call if high fever, development of periorbital redness or swelling, eye pain, visual changes, concerns or if symptoms persist. - CARBOXYMETHYLCELLULOSE SODIUM 1 % EYE LIQUID GEL DROPS 15. Seasonal allergic rhinitis, unspecified trigger - ICD9: 477.9, ICD10: J30.2 Stable on loratadine - LORATADINE 5 MG CHEWABLE TABLET Discussed treatment plan and patient voices understanding. Patient's questions answered appropriately. Medications and potential side effects were discussed and patient voices understanding. Return to the office as scheduled or as needed for worsening/no improvement. \\ Carolina Landeros APRN.CNP documented in this encounterGerman Hospital04-08-2025 Note* Addendum Note - Carolina Landeros APRN.CNP - 01/21/2025 4:54 PM EDTAddended by: CAROLINA LANDEROS on: 01/21/2025 04:54 PM Modules accepted: Orders [facility]04-08-2025 Miscellaneous Notes* Addendum Note - Carolina Landeros APRN.CNP - 01/21/2025 4:54 PM EDTAddended by: CAROLINA LANDEROS on: 01/21/2025 04:54 PM Modules accepted: Orders * Addendum Note - Geovanna Hinds MA - 01/21/2025 4:33 PM EDTAddended by: GEOVANNA HINDS on: 01/21/2025 04:33 PM Modules accepted: Orders documented in this encounterGerman Hospital04-08-2025 Note* Addendum Note - Geovanna Hinds MA - 01/21/2025 4:33 PM EDTAddended by: GEOVANNA HINDS on: 01/21/2025 04:33 PM Modules accepted: Orders [facility]04-08-2025 Instructions* Patient Instructions* Carolina Landeros APRN.CNP - 01/21/2025 3:48 PM EDT 1) Decrease lisinopril to 10 mg daily (to use up the 20 mg tablets that you have, cut in half) 2) Can we flush ears/ 3) Loratadine 5 mg daily- for allergies as needed 4) Carboxymethylcellulose 2 drops each eye as needed for itchy eyes 5) check labs today 6) Follow up in 6 months documented in this encounterGerman Hospital04-08-2025 NoteHNO ID: [id number] Author: CAROLINA LANDEROS APRN.CNP Service: ? Author Type: Nurse Practitioner Type: Progress Notes Filed: 01/21/2025 16:11 Note Text: This is a 79 year old male who presents today with: Patient presents with: 6 Month Exam HISTORY OF PRESENT ILLNESS: Cal Mitchell is a 79 year old male. Patient presents with: 6 Month Exam Eyes are watery and itch for the past couple weeks. DM: Reports overall feeling well. Medication side effects: No medication. Home sugar checks: No Hypoglycemic spells: No. Watching diet: No. Unexpected weight loss: No. Polyuria, polydipsia: No. Vision Changes: No. Foot lesions or numbness or pain: No. HTN: Patient is compliant with meds Not taking lisinopril Monitors bp at home: Yes. [place] checks it, ok there Denies side effects: Maybe. Gets lightheaded sometimes getting out of car. Chest pain: No. Dyspnea: No. With exertion Edema: No. Palpitations: No. Syncope: No. Headache: No. Dizziness: Some. Dementia- daughter helping with history taking PAST MEDICAL HISTORY: PAST MEDICAL HISTORY Diagnosis Date Actinic keratosis 10/2004 Aortic valve stenosis BPH (benign prostatic hyperplasia) Carotid artery stenosis Chronic airway obstruction, not elsewhere classified 10/2004 Diabetes (HCC) Diverticulosis of colon (without mention of hemorrhage) Ectatic thoracic aorta 06/07/2018 06/07/18 Chest CTA: There is atherosclerotic calcification of the thoracic aorta with mild fusiform ectasia of the descending component measuring 3.2 x 3.1 cm Essential hypertension Hyperlipidemia Impacted cerumen 10/2004 Obesity, unspecified 11/2003 Other and unspecified hyperlipidemia 10/2003 Other symptoms involving cardiovascular system 10/2004 Peripheral vascular disease, unspecified 10/2004 R carotid Unspecified essential hypertension 04/2004 PAST SURGICAL HISTORY Procedure Laterality Date ARTL CATHJ/CANNULJ MNTR/TRANSFUSION SPX PRQ 04-17-14 COLONOSCOPY FLX DX W/COLLJ SPEC WHEN PFRMD 40 years ago Colonoscopy COLONOSCOPY FLX DX W/COLLJ SPEC WHEN PFRMD 03/02/11 DSTRJ LESION PENIS SIMPLE CHEMICAL 10/20 PAST SURGICAL HISTORY OF Skin tag removals - bilateral axillary REMOVAL IMPACTED CERUMEN INSTRUMENTATION UNILAT 10/20 TEAEC W/PATCH GRF CAROTID VERTB SUBCLAV NECK INC 04-17-14 RIGHT ALLERGIES Patient has no known allergies. MEDICATIONS Current Outpatient Medications Medication Sig lisinopril (ZESTRIL) 20 mg tablet Take 1 tablet by mouth once daily. atorvastatin (LIPITOR) 80 mg tablet Take 1 tablet by mouth daily at bedtime. For cholesterol. clopidogrel (PLAVIX) 75 mg tablet Take 1 tablet by mouth once daily. metoprolol succinate ER (TOPROL XL) 25 mg 24 hr tablet Take 1 tablet by mouth once daily. escitalopram oxalate (LEXAPRO) 10 mg tablet Take 1 tablet by mouth once daily. warfarin (COUMADIN) 5 mg tablet 7.5 mg on Monday, 5 mg all other days or as directed (Patient taking differently: 5 mg everyday or as directed) memantine (NAMENDA) 10 mg tablet Take 1 tablet by mouth once daily. nitroglycerin sublingual (NITROQUICK) 0.4 mg SL tablet Dissolve 1 tablet under the tongue as needed. for chest pain,every 5 min x3 blood sugar diagnostic (ONETOUCH ULTRA TEST) test strip Test blood sugar(s) one times daily. Dx: 250.00. Insulin: No Lancets (ONE TOUCH DELICA) [facility] [place] Test blood sugar(s) one time daily. Dx: 250.00. Insulin: No lisinopril (ZESTRIL) 20 mg tablet Take 1 tablet by mouth once daily. atorvastatin (LIPITOR) 80 mg tablet Take 1 tablet by mouth daily at bedtime. For cholesterol. iv contrast (will be provided with radiology test) CTA ABD/PEL - No IV access, insert saline lock prior to the sedation, infusion, injection for imaging exam. Discontinue saline lock post exam. If Pt. has a central line or IVAD, may access for administration according to line specific nursing protocol. Once exam is complete flush line and de-access according to line specific nursing protocol in the CT contrast administration guidelines link. enoxaparin (LOVENOX) 100 mg/mL syrg Inject 1 mL subcutaneously once daily. Inject entire contents of one(1) syringe finasteride (PROSCAR) 5 mg tablet Take 1 tablet by mouth once daily. acetaminophen (TYLENOL) 500 mg tablet Take 500 mg by mouth every 8 hours as needed. (Patient not taking: Reported on 08/06/2024) No current facility-administered medications for this visit. FAMILY HISTORY Problem Relation Age of Onset Heart Mother of CHF Stroke Maternal Grandfather Social History Tobacco Use Smoking status: Former Current packs/day: 0.00 Average packs/day: 2.0 packs/day for 10.0 years (20.0 ttl pk-yrs) Types: Cigarettes Start date: 12/05/1975 Quit date: 12/05/1985 Years since quittin.1 Smokeless tobacco: Never Vaping Use Vaping status: Never Used Substance Use Topics Alcohol use: No Comment: none now; social in past Drug use: No EXAM: (more content not included)...[facility]03-26-2025 Miscellaneous Notes* Telephone Encounter - Josselyn Barrow LPN - 01/08/2025 2:50 PM EDT Prescription Refill Information The patient has been identified by name and date of : Yes Caregiver verified no other encounters exist for this prescription request: Yes Caregiver confirmed with patient/requestor that no other refills are due, in the near future, with this provider at this time: Yes The last office visit in the department: 07/12/24 Does the patient have a future office visit with this provider/department: Yes Requested Prescriptions Pending Prescriptions Disp Refills lisinopril (ZESTRIL) 20 mg tablet 90 tablet 3 Sig: Take 1 tablet by mouth once daily. lisinopril (ZESTRIL) 20 mg tablet 30 tablet 0 Sig: Take 1 tablet by mouth once daily. Josselyn Barrow LPN January 08, 2025 2:53 PM documented in this encounterGerman Hospital03-26-2025 Telephone encounter Note * Telephone Encounter - Josselyn Barrow LPN - 01/08/2025 2:50 PM EDT Prescription Refill Information The patient has been identified by name and date of : Yes Caregiver verified no other encounters exist for this prescription request: Yes Caregiver confirmed with patient/requestor that no other refills are due, in the near future, with this provider at this time: Yes The last office visit in the department: 07/12/24 Does the patient have a future office visit with this provider/department: Yes Requested Prescriptions Pending Prescriptions Disp Refills lisinopril (ZESTRIL) 20 mg tablet 90 tablet 3 Sig: Take 1 tablet by mouth once daily. lisinopril (ZESTRIL) 20 mg tablet 30 tablet 0 Sig: Take 1 tablet by mouth once daily. Josselyn Barrow LPN January 08, 2025 2:53 PM [facility]03-26-[facility] Telephone encounter Note* Telephone Encounter - Ruthie Cuevas RPh - 01/08/2025 8:51 AM EDT [facility] Anticoagulation Episode Summary Anticoagulation Care Providers Provider Role Specialty Phone number Guanakito Reno MD [facility] [phone] Cal Mitchell is a 79 year old year old male patient being evaluated today for a Telemanagementvisit. Patient is currently on the following anticoagulant(s) Warfarin. Labs PT INR (no units) Date Value 09/28/2022 1.9 (self reporting) 01/24/2022 2.1 biotel 10/26/2021 2.1 (Biotel) INR (POCT) (no units) Date Value 07/23/2024 1.4 INR Home CoaguChek (no units) Date Value 01/07/2025 1.8 12/27/2024 1.5 12/10/2024 2.3 Hemoglobin (g/dL) Date Value 07/12/2024 10.3 10/06/2020 12.3 Hematocrit (%) Date Value 07/12/2024 34.7 10/06/2020 39.0 Platelet Count (k/uL) Date Value 07/12/2024 190 10/06/2020 189 Creatinine (mg/dL) Date Value 07/12/2024 2.40 04/19/2024 2.35 04/04/2024 2.61 10/06/2020 1.60 07/18/2019 1.46 03/18/2019 1.51 Bilirubin, Total (mg/dL) Date Value 07/12/2024 0.4 10/06/2020 0.4 ALT (U/L) Date Value 07/12/2024 23 10/06/2020 16 AST (U/L) Date Value 07/12/2024 25 10/06/2020 17 CrCl cannot be calculated (Unknown ideal weight.). 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 Next home INR check scheduled on 01/22/2025 Asked them to call to discuss since we usually get a VM. Patient advised to call the PAC with any medication changes, bleeding/bruising concerns, recent changes in vitamin k consumption, if any procedures are coming up, if they have been ill or in the hospital, and if they have missed any doses of warfarin. Ruthie Cuevas RPh Clinical Pharmacist, Pharmacy Anticoagulation Clinic Pharmacy [facility] Pager: [phone]. [facility]03-26-[facility] Miscellaneous Notes* Telephone Encounter - Ruthie Cuevas RPh - 01/08/2025 8:51 AM EDT [facility] Anticoagulation Episode Summary Anticoagulation Care Providers Provider Role Specialty Phone number Guanakito Reno MD [facility] Medicine [phone] Cal Mitchell is a 79 year old year old male patient being evaluated today for a Telemanagementvisit. Patient is currently on the following anticoagulant(s) Warfarin. Labs PT INR (no units) Date Value 09/28/2022 1.9 (self reporting) 01/24/2022 2.1 biotel 10/26/2021 2.1 (Biotel) INR (POCT) (no units) Date Value 07/23/2024 1.4 INR Home CoaguChek (no units) Date Value 01/07/2025 1.8 12/27/2024 1.5 12/10/2024 2.3 Hemoglobin (g/dL) Date Value 07/12/2024 10.3 10/06/2020 12.3 Hematocrit (%) Date Value 07/12/2024 34.7 10/06/2020 39.0 Platelet Count (k/uL) Date Value 07/12/2024 190 10/06/2020 189 Creatinine (mg/dL) Date Value 07/12/2024 2.40 04/19/2024 2.35 04/04/2024 2.61 10/06/2020 1.60 07/18/2019 1.46 03/18/2019 1.51 Bilirubin, Total (mg/dL) Date Value 07/12/2024 0.4 10/06/2020 0.4 ALT (U/L) Date Value 07/12/2024 23 10/06/2020 16 AST (U/L) Date Value 07/12/2024 25 10/06/2020 17 CrCl cannot be calculated (Unknown ideal weight.). 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: [facility] (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 Paroxysmal atrial fibrillation (hcc) Anticoagulation Episode Summary Current INR goal: 2.0-3.0 Assessment: INR result of 1.8 is SUBtherapeutic due to: unknown cause - did not speak to patient Plan: Current Warfarin Dosing As of 01/08/2025 Full warfarin instructions: 5 mg every day Left voice message (For January) Advised patient to increase dose for 1 day only then resume weekly regimen Unsure if he needs a higher weekly dose. Next home INR check scheduled on 01/22/2025 Asked them to call to discuss since we usually get a VM. Patient advised to call the PAC with any medication changes, bleeding/bruising concerns, recent changes in vitamin k consumption, if any procedures are coming up, if they have been ill or in the hospital, and if they have missed any doses of warfarin. Ruthie Cuevas RPh Clinical Pharmacist, Pharmacy Anticoagulation Clinic Pharmacy An[facility] Clinic Pager: [phone]. documented in this encounterGerman Hospital03-26-2025 Evaluation note* Diagnosis Hypertensive kidney disease with stage 3 chronic kidney disease, unspecified whether stage 3a or 3b CKD (HCC) documented in this encounter [facility]03-[facility] Telephone encounter Note* Telephone Encounter - Octavio (Spray Drier Operator HelperRuben Granados - 12/30/2024 9:15 AM EDT Roscoe'larry called regarding INR result for patient. Result has been addressed below, no further action needed. Ruben Cunningham [employer]itor (refrigerating technician) [facility]03-17-2025 Miscellaneous Notes* Telephone Encounter - Octavio (Spray Drier Operator Helper), Brian - 12/30/2024 9:15 AM EDT Roscoe'larry called regarding INR result for patient. Result has been addressed below, no further action needed. Ruben Cunningham [employer] Visitor (refrigerating technician) Pharmacy Anticoagulation Clinic * Telephone Encounter - Twin Cole [facility] - 12/30/2024 9:12 AM EDT [facility] Anticoagulation Episode Summary Anticoagulation Care Providers Provider Role Specialty Phone number Guanakito Reno MD [facility] [phone] Cal Mitchell is a 79 year old year old male patient being evaluated today for a Telemanagementvisit. Patient is currently on the following anticoagulant(s) Warfarin. Labs PT INR (no units) Date Value 09/28/2022 1.9 (self reporting) 01/24/2022 2.1 biotel 10/26/2021 2.1 (Biotel) INR (POCT) (no units) Date Value 07/23/2024 1.4 INR Home CoaguChek (no units) Date Value 12/27/2024 1.5 12/10/2024 2.3 11/26/2024 1.5 Hemoglobin (g/dL) Date Value 07/12/2024 10.3 10/06/2020 12.3 Hematocrit (%) Date Value 07/12/2024 34.7 10/06/2020 39.0 Platelet Count (k/uL) Date Value 07/12/2024 190 10/06/2020 189 Creatinine (mg/dL) Date Value 07/12/2024 2.40 04/19/2024 2.35 04/04/2024 2.61 10/06/2020 1.60 07/18/2019 1.46 03/18/2019 1.51 Bilirubin, Total (mg/dL) Date Value 07/12/2024 0.4 10/06/2020 0.4 ALT (U/L) Date Value 07/12/2024 23 10/06/2020 16 AST (U/L) Date Value 07/12/2024 25 10/06/2020 17 CrCl cannot be calculated (Unknown ideal weight.). 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: Anticoagulation Episode Summary Current INR goal: 2.0-3.0 Assessment: INR result of 1.5 is SUBtherapeutic due to: unknown cause - did not speak to patient Plan: Current Warfarin Dosing As of 12/30/2024 Full warfarin instructions: 12/30: 7.5 mg; Otherwise 5 mg every day Left voice message on # Advised patient to increase dose for 1 day only then resume weekly regimen Next home INR check scheduled on 01/07/2025 Patient advised to call the PAC with any medication changes, bleeding/bruising concerns, recent changes in vitamin k consumption, if any procedures are coming up, if they have been ill or in the hospital, and if they have missed any doses of warfarin. Twin Cole RPh Clinical Pharmacist, Pharmacy Anticoagulation Clinic Pharmacy Anticoagulation Clinic Pager: [phone]. documented in this encounterGerman Hospital03-17-2025 Telephone encounter Note * Telephone Encounter - Twin Cole RPh - 12/30/2024 9:12 AM EDT [facility] Anticoagulation Episode Summary Anticoagulation Care Providers Provider Role Specialty Phone number Guanakito Reno MD [facility] Family Medicine [phone] Cal Mitchell is a 79 year old year old male patient being evaluated today for a Telemanagementvisit. Patient is currently on the following anticoagulant(s) Warfarin. Labs PT INR (no units) Date Value 09/28/2022 1.9 (self reporting) 01/24/2022 2.1 biotel 10/26/2021 2.1 (Biotel) INR (POCT) (no units) Date Value 07/23/2024 1.4 INR Home CoaguChek (no units) Date Value 12/27/2024 1.5 12/10/2024 2.3 11/26/2024 1.5 Hemoglobin (g/dL) Date Value 07/12/2024 10.3 10/06/2020 12.3 Hematocrit (%) Date Value 07/12/2024 34.7 10/06/2020 39.0 Platelet Count (k/uL) Date Value 07/12/2024 190 10/06/2020 189 Creatinine (mg/dL) Date Value 07/12/2024 2.40 04/19/2024 2.35 04/04/2024 2.61 10/06/2020 1.60 07/18/2019 1.46 03/18/2019 1.51 Bilirubin, Total (mg/dL) Date Value 07/12/2024 0.4 10/06/2020 0.4 ALT (U/L) Date Value 07/12/2024 23 10/06/2020 16 AST (U/L) Date Value 07/12/2024 25 10/06/2020 17 CrCl cannot be calculated (Unknown ideal weight.). 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: Anticoagulation Episode Summary Current INR goal: 2.0-3.0 Assessment: INR result of 1.5 is SUBtherapeutic due to: unknown cause - did not speak to patient Plan: Current Warfarin Dosing As of 12/30/2024 Full warfarin instructions: 12/30: 7.5 mg; Otherwise 5 mg every day Left voice message on # Advised patient to increase dose for 1 day only then resume weekly regimen Next home INR check scheduled on 01/07/2025 Patient advised to call the PAC with any medication changes, bleeding/bruising concerns, recent changes in vitamin k consumption, if any procedures are coming up, if they have been ill or in the hospital, and if they have missed any doses of warfarin. Twin Cole RPh Clinical Pharmacist, [facility] Pager: [phone]. [facility]02-26-2025 Telephone encounter Note* Telephone Encounter - Jimmy Carrizales RPh - 12/11/2024 9:43 AM EST [facility] Anticoagulation Episode Summary Anticoagulation Care Providers Provider Role Specialty Phone number Guanakito Reno MD [facility] [phone] Cal Mitchell is a 79 year old year old male patient being evaluated today for a Telemanagementvisit. Patient is currently on the following anticoagulant(s) Warfarin. Labs PT INR (no units) Date Value 09/28/2022 1.9 (self reporting) 01/24/2022 2.1 biotel 10/26/2021 2.1 (Biotel) INR (POCT) (no units) Date Value 07/23/2024 1.4 INR Home CoaguChek (no units) Date Value 12/10/2024 2.3 11/26/2024 1.5 10/28/2024 1.9 Hemoglobin (g/dL) Date Value 07/12/2024 10.3 10/06/2020 12.3 Hematocrit (%) Date Value 07/12/2024 34.7 10/06/2020 39.0 Platelet Count (k/uL) Date Value 07/12/2024 190 10/06/2020 189 Creatinine (mg/dL) Date Value 07/12/2024 2.40 04/19/2024 2.35 04/04/2024 2.61 10/06/2020 1.60 07/18/2019 1.46 03/18/2019 1.51 Bilirubin, Total (mg/dL) Date Value 07/12/2024 0.4 10/06/2020 0.4 ALT (U/L) Date Value 07/12/2024 23 10/06/2020 16 AST (U/L) Date Value 07/12/2024 25 10/06/2020 17 CrCl cannot be calculated (Unknown ideal weight.). 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 Paroxysmal atrial fibrillation (hcc) Anticoagulation Episode Summary Current INR goal: 2.0-3.0 Assessment: INR result of 2.3 is therapeutic Plan: Current Warfarin Dosing As of 12/11/2024 Full warfarin instructions: 5 mg every day Left voice message Advised patient to continue current weekly dose as noted above Next home INR check scheduled on 12/24/2024 Patient advised to call the PAC with any medication changes, bleeding/bruising concerns, recent changes in vitamin k consumption, if any procedures are coming up, if they have been ill or in the hospital, and if they have missed any doses of warfarin. Jimmy Carrizales RPh Clinical Pharmacist, Pharmacy Anticoagulation Clinic Pharm[facility] Pager: [phone]. [facility]02-26-2025 Miscellaneous Notes* Telephone Encounter - Jimmy Carrizales RPh - 12/11/2024 9:43 AM EST [facility] Anticoagulation Episode Summary Anticoagulation Care Providers Provider Role Specialty Phone number Guanakito Reno MD [facility] [phone] Cal Mitchell is a 79 year old year old male patient being evaluated today for a Telemanagementvisit. Patient is currently on the following anticoagulant(s) Warfarin. Labs PT INR (no units) Date Value 09/28/2022 1.9 (self reporting) 01/24/2022 2.1 biotel 10/26/2021 2.1 (Biotel) INR (POCT) (no units) Date Value 07/23/2024 1.4 INR Home CoaguChek (no units) Date Value 12/10/2024 2.3 11/26/2024 1.5 10/28/2024 1.9 Hemoglobin (g/dL) Date Value 07/12/2024 10.3 10/06/2020 12.3 Hematocrit (%) Date Value 07/12/2024 34.7 10/06/2020 39.0 Platelet Count (k/uL) Date Value 07/12/2024 190 10/06/2020 189 Creatinine (mg/dL) Date Value 07/12/2024 2.40 04/19/2024 2.35 04/04/2024 2.61 10/06/2020 1.60 07/18/2019 1.46 03/18/2019 1.51 Bilirubin, Total (mg/dL) Date Value 07/12/2024 0.4 10/06/2020 0.4 ALT (U/L) Date Value 07/12/2024 23 10/06/2020 16 AST (U/L) Date Value 07/12/2024 25 10/06/2020 17 CrCl cannot be calculated (Unknown ideal weight.). 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: [facility] (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 Paroxysmal atrial fibrillation (hcc) Anticoagulation Episode Summary Current INR goal: 2.0-3.0 Assessment: INR result of 2.3 is therapeutic Plan: Current Warfarin Dosing As of 12/11/2024 Full warfarin instructions: 5 mg every day Left voice message Advised patient to continue current weekly dose as noted above Next home INR check scheduled on 12/24/2024 Patient advised to call the PAC with any medication changes, bleeding/bruising concerns, recent changes in vitamin k consumption, if any procedures are coming up, if they have been ill or in the hospital, and if they have missed any doses of warfarin. Jimmy Carrizales RPh Clinical Pharmacist, Pharmacy Anticoagulation Clinic Pharmacy An[facility] Pager: [phone]. documented in this encounterGerman Hospital02-11-[facility]25 Telephone encounter Note * Telephone Encounter - Twin Cole RPh - 11/26/2024 5:26 PM EST [facility] Anticoagulation Episode Summary Anticoagulation Care Providers Provider Role Specialty Phone number Guanakito Reno MD [facility] Medicine [phone] Cal Mitchell is a 79 year old year old male patient being evaluated today for a Telemanagementvisit. Patient is currently on the following anticoagulant(s) Warfarin. Labs PT INR (no units) Date Value 09/28/2022 1.9 (self reporting) 01/24/2022 2.1 biotel 10/26/2021 2.1 (Biotel) INR (POCT) (no units) Date Value 07/23/2024 1.4 INR Home CoaguChek (no units) Date Value 11/26/2024 1.5 10/28/2024 1.9 09/30/2024 1.8 Hemoglobin (g/dL) Date Value 07/12/2024 10.3 10/06/2020 12.3 Hematocrit (%) Date Value 07/12/2024 34.7 10/06/2020 39.0 Platelet Count (k/uL) Date Value 07/12/2024 190 10/06/2020 189 Creatinine (mg/dL) Date Value 07/12/2024 2.40 04/19/2024 2.35 04/04/2024 2.61 10/06/2020 1.60 07/18/2019 1.46 03/18/2019 1.51 Bilirubin, Total (mg/dL) Date Value 07/12/2024 0.4 10/06/2020 0.4 ALT (U/L) Date Value 07/12/2024 23 10/06/2020 16 AST (U/L) Date Value 07/12/2024 25 10/06/2020 17 CrCl cannot be calculated (Unknown ideal weight.). 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: Anticoagulation Episode Summary Current INR goal: 2.0-3.0 Assessment: INR result of 1.5 is SUBtherapeutic due to: Missed dose(s) Plan: Current Warfarin Dosing As of 11/26/2024 Full warfarin instructions: 11/26: 7.5 mg; Otherwise 5 mg every day Called and spoke to patient/caregiver January Advised patient to increase dose for 1 day only then resume weekly regimen Next home INR check scheduled on 12/10/2024 Patient's caregiver verbalizes understanding of the plan. Patient advised to call the PAC with any medication changes, bleeding/bruising concerns, recent changes in vitamin k consumption, if any procedures are coming up, if they have been ill or in the hospital, and if they have missed any doses of warfarin. Twin Cole RPh Clinical Pharmacist, Pharmacy Anticoagulation Clinic Pharmacy Anticoagulation Clinic Pager: [phone]. [facility]02-11-2025 Miscellaneous Notes* Telephone Encounter - Twin Cole RPh - 11/26/2024 5:26 PM EST [facility] Anticoagulation Episode Summary Anticoagulation Care Providers Provider Role Specialty Phone number Guanakito Reno MD [facility] [phone] Cal Mitchell is a 79 year old year old male patient being evaluated today for a Telemanagementvisit. Patient is currently on the following anticoagulant(s) Warfarin. Labs PT INR (no units) Date Value 09/28/2022 1.9 (self reporting) 01/24/2022 2.1 biotel 10/26/2021 2.1 (Biotel) INR (POCT) (no units) Date Value 07/23/2024 1.4 INR Home CoaguChek (no units) Date Value 11/26/2024 1.5 10/28/2024 1.9 09/30/2024 1.8 Hemoglobin (g/dL) Date Value 07/12/2024 10.3 10/06/2020 12.3 Hematocrit (%) Date Value 07/12/2024 34.7 10/06/2020 39.0 Platelet Count (k/uL) Date Value 07/12/2024 190 10/06/2020 189 Creatinine (mg/dL) Date Value 07/12/2024 2.40 04/19/2024 2.35 04/04/2024 2.61 10/06/2020 1.60 07/18/2019 1.46 03/18/2019 1.51 Bilirubin, Total (mg/dL) Date Value 07/12/2024 0.4 10/06/2020 0.4 ALT (U/L) Date Value 07/12/2024 23 10/06/2020 16 AST (U/L) Date Value 07/12/2024 25 10/06/2020 17 CrCl cannot be calculated (Unknown ideal weight.). 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: Anticoagulation Episode Summary Current INR goal: 2.0-3.0 Assessment: INR result of 1.5 is SUBtherapeutic due to: Missed dose(s) Plan: Current Warfarin Dosing As of 11/26/2024 Full warfarin instructions: 11/26: 7.5 mg; Otherwise 5 mg every day Called and spoke to patient/caregiver January Advised patient to increase dose for 1 day only then resume weekly regimen Next home INR check scheduled on 12/10/2024 Patient's caregiver verbalizes understanding of the plan. Patient advised to call the PAC with any medication changes, bleeding/bruising concerns, recent changes in vitamin k consumption, if any procedures are coming up, if they have been ill or in the hospital, and if they have missed any doses of warfarin. Twin Cole RPh Clinical Pharmacist, Pharmacy Anticoagulation Clinic Pharmacy Anticoagulation Clinic Pager: [phone]. documented in this encounterGerman Hospital01-13-2025 Telephone encounter Note * Telephone Encounter - Alejandro Molina RPh - 10/28/2024 5:06 PM EST [facility] Anticoagulation Episode Summary Anticoagulation Care Providers Provider Role Specialty Phone number Guanakito Reno MD [facility] [phone] Cal Mitchell is a 79 year old year old male patient being evaluated today for a Telemanagementvisit. Patient is currently on the following anticoagulant(s) Warfarin. Labs PT INR (no units) Date Value 09/28/2022 1.9 (self reporting) 01/24/2022 2.1 biotel 10/26/2021 2.1 (Biotel) INR (POCT) (no units) Date Value 07/23/2024 1.4 INR Home CoaguChek (no units) Date Value 10/28/2024 1.9 09/30/2024 1.8 08/24/2024 3.0 Estimated Creatinine Clearance: 29.8 mL/min (A) (based on SCr of 2.4 mg/dL (H)). 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: Anticoagulation Episode Summary Current INR goal: 2.0-3.0 Assessment: INR result of 1.9 is SUBtherapeutic due to: unknown cause - did not speak to patient Plan: Current Warfarin Dosing As of 10/28/2024 Full warfarin instructions: 10/28: 7.5 mg; Otherwise 5 mg every day Left voice message Advised patient to increase dose for 1 day only then resume weekly regimen Next INR check due on 11/11/2024 Patient instructed to call [facility] at [phone] with any questionsor concerns. Alejandro Molina RPh Clinical Pharmacist, Pharmacy Anticoagulation Clinic Pharmacy Antico[facility] Pager: [phone] [facility]01-13-2025 Miscellaneous Notes* Telephone Encounter - Alejandro Molina RPh - 10/28/2024 5:06 PM EST [facility] Anticoagulation Episode Summary Anticoagulation Care Providers Provider Role Specialty Phone number Guanakito Reno MD [facility] [phone] Cal Mitchell is a 79 year old year old male patient being evaluated today for a Telemanagementvisit. Patient is currently on the following anticoagulant(s) Warfarin. Labs PT INR (no units) Date Value 09/28/2022 1.9 (self reporting) 01/24/2022 2.1 biotel 10/26/2021 2.1 (Biotel) INR (POCT) (no units) Date Value 07/23/2024 1.4 INR Home CoaguChek (no units) Date Value 10/28/2024 1.9 09/30/2024 1.8 08/24/2024 3.0 Estimated Creatinine Clearance: 29.8 mL/min (A) (based on SCr of 2.4 mg/dL (H)). 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: Anticoagulation Episode Summary Current INR goal: 2.0-3.0 Assessment: INR result of 1.9 is SUBtherapeutic due to: unknown cause - did not speak to patient Plan: Current Warfarin Dosing As of 10/28/2024 Full warfarin instructions: 10/28: 7.5 mg; Otherwise 5 mg every day Left voice message Advised patient to increase dose for 1 day only then resume weekly regimen Next INR check due on 11/11/2024 Patient instructed to call [facility] at [phone] with any questionsor concerns. Alejandro Molina RPh Clinical Pharmacist, Pharmacy Anticoagulation Clinic Pharmacy Antico[facility] Clinic Pager: [phone] documented in this encounterGerman Hospital01-06-2025 Telephone encounter Note * Telephone Encounter - Ashley De Dios RN - 10/21/2024 2:58 PM EST Pt ALEC Chen called and is notified of providers message. He voices understanding. Ashley De Dios RN [facility]01-06-2025 Miscellaneous Notes* Telephone Encounter - Ashley De Dios RN - 10/21/2024 2:58 PM EST Pt ALEC Chen called and is notified of providers message. He voices understanding. Ashley De Dios RN * Telephone Encounter - Guanakito Reno MD - 10/21/2024 2:25 PM EST agree * Telephone Encounter - Ashley De Dios RN - 10/21/2024 2:01 PM EST Pts ALEC Chen called and is notified of providers message and instructions. He voices understanding. He was asking about what they should give him in case he has any pain with his stage 4 Kidney disease and being on Coumadin. I told him the NSAIDs are worse on the kidneys and can cause bleeding, the Tylenol is harder on the liver. I told him I would ask the provider and have him get back to the Pt. Ashley De Dios RN * Telephone Encounter - Guanakito Reno MD - 10/21/2024 1:55 PM EST Can try mucinex otc. Call if symptoms worsen at all or if not better in one to two weeks * Telephone Encounter - Aslhey De Dios RN - 10/21/2024 1:19 PM EST Pts son in law Chen call in and reports Pt has had cold and congestion x1 week. Pt is asking whathe can take OTC for it today. Pt has a cough and is bringing up a small amount of white/clear phlegm, a runny nose with white drainage, some wheezing, SOB with exertion. Pts daughter state his eyes are red, but no drainage or crust. Denies fever or chest pain. They are wanting to know what the Pt would be able to take OTC with his medications and medical history. They deny testing him for Covid. Please call and advise. documented in this encounterGerman Hospital01-06-2025 Telephone encounter Note * Telephone Encounter - Guanakito Reno MD - 10/21/2024 2:25 PM EST agree [facility]01-06-2025 Telephone encounter Note* Telephone Encounter - Ashley De Dios RN - 10/21/2024 2:01 PM EST Pts ALEC Chen called and is notified of providers message and instructions. He voices understanding. He was asking about what they should give him in case he has any pain with his stage 4 Kidney disease and being on Coumadin. I told him the NSAIDs are worse on the kidneys and can cause bleeding, the Tylenol is harder on the liver. I told him I would ask the provider and have him get back to the Pt. Ashley De Dios RN [facility]01-06-2025 Telephone encounter Note* Telephone Encounter - Guanakito Reno MD - 10/21/2024 1:55 PM EST Can try mucinex otc. Call if symptoms worsen at all or if not better in one to two weeks [facility]01-06-2025 Telephone encounter Note* Telephone Encounter - Ashley De Dios RN - 10/21/2024 1:19 PM EST Pts son in law Chen call in and reports Pt has had cold and congestion x1 week. Pt is asking whathe can take OTC for it today. Pt has a cough and is bringing up a small amount of white/clear phlegm, a runny nose with white drainage, some wheezing, SOB with exertion. Pts daughter state his eyes are red, but no drainage or crust. Denies fever or chest pain. They are wanting to know what the Pt would be able to take OTC with his medications and medical history. They deny testing him for Covid. Please call and advise. [facility]12-17-2024 Telephone encounter Note* Telephone Encounter - Twin Cole, [facility] - 10/01/2024 9:37 AM EST [facility] Anticoagulation Episode Summary Anticoagulation Care Providers Provider Role Specialty Phone number Guanakito Reno MD [facility] [phone] Cal Mitchell is a 79 year old year old male patient being evaluated today for a Telemanagementvisit. Patient is currently on the following anticoagulant(s) Warfarin. Labs PT INR (no units) Date Value 09/28/2022 1.9 (self reporting) 01/24/2022 2.1 biotel 10/26/2021 2.1 (Biotel) INR (POCT) (no units) Date Value 07/23/2024 1.4 INR Home CoaguChek (no units) Date Value 09/30/2024 1.8 08/24/2024 3.0 07/31/2024 2.1 Hemoglobin (g/dL) Date Value 07/12/2024 10.3 10/06/2020 12.3 Hematocrit (%) Date Value 07/12/2024 34.7 10/06/2020 39.0 Platelet Count (k/uL) Date Value 07/12/2024 190 10/06/2020 189 Creatinine (mg/dL) Date Value 07/12/2024 2.40 04/19/2024 2.35 04/04/2024 2.61 10/06/2020 1.60 07/18/2019 1.46 03/18/2019 1.51 Bilirubin, Total (mg/dL) Date Value 07/12/2024 0.4 10/06/2020 0.4 ALT (U/L) Date Value 07/12/2024 23 10/06/2020 16 AST (U/L) Date Value 07/12/2024 25 10/06/2020 17 Estimated Creatinine Clearance: 29.8 mL/min (A) (based on SCr of 2.4 mg/dL (H)). 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: Anticoagulation Episode Summary Current INR goal: 2.0-3.0 Assessment: INR result of 1.8 is SUBtherapeutic due to: unknown cause - did not speak to patient Plan: Current Warfarin Dosing As of 10/01/2024 Full warfarin instructions: 10/01: 7.5 mg; Otherwise 5 mg every day Left voice message home & mobile Advised patient to increase dose for 1 day only then resume weekly regimen Next home INR check scheduled on 10/15/2024 Patient advised to call the PAC with any medication changes, bleeding/bruising concerns, recent changes in vitamin k consumption, if any procedures are coming up, if they have been ill or in the hospital, and if they have missed any doses of warfarin. Twin Cole RPh Clinical Pharmacist, Pharmacy Anticoagulation Clinic Pharm[facility] Pager: [phone]. [facility]12-17-[facility] Miscellaneous Notes* Telephone Encounter - Twin Cole RPh - 10/01/2024 9:37 AM EST [facility] Anticoagulation Episode Summary Anticoagulation Care Providers Provider Role Specialty Phone number Guanakito Reno MD [facility] Medicine [phone] Cal Mitchell is a 79 year old year old male patient being evaluated today for a Telemanagementvisit. Patient is currently on the following anticoagulant(s) Warfarin. Labs PT INR (no units) Date Value 09/28/2022 1.9 (self reporting) 01/24/2022 2.1 biotel 10/26/2021 2.1 (Biotel) INR (POCT) (no units) Date Value 07/23/2024 1.4 INR Home CoaguChek (no units) Date Value 09/30/2024 1.8 08/24/2024 3.0 07/31/2024 2.1 Hemoglobin (g/dL) Date Value 07/12/2024 10.3 10/06/2020 12.3 Hematocrit (%) Date Value 07/12/2024 34.7 10/06/2020 39.0 Platelet Count (k/uL) Date Value 07/12/2024 190 10/06/2020 189 Creatinine (mg/dL) Date Value 07/12/2024 2.40 04/19/2024 2.35 04/04/2024 2.61 10/06/2020 1.60 07/18/2019 1.46 03/18/2019 1.51 Bilirubin, Total (mg/dL) Date Value 07/12/2024 0.4 10/06/2020 0.4 ALT (U/L) Date Value 07/12/2024 23 10/06/2020 16 AST (U/L) Date Value 07/12/2024 25 10/06/2020 17 Estimated Creatinine Clearance: 29.8 mL/min (A) (based on SCr of 2.4 mg/dL (H)). 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: Anticoagulation Episode Summary Current INR goal: 2.0-3.0 Assessment: INR result of 1.8 is SUBtherapeutic due to: unknown cause - did not speak to patient Plan: Current Warfarin Dosing As of 10/01/2024 Full warfarin instructions: 10/01: 7.5 mg; Otherwise 5 mg every day Left voice message home & mobile Advised patient to increase dose for 1 day only then resume weekly regimen Next home INR check scheduled on 10/15/2024 Patient advised to call the PAC with any medication changes, bleeding/bruising concerns, recent changes in vitamin k consumption, if any procedures are coming up, if they have been ill or in the hospital, and if they have missed any doses of warfarin. Twin Cole RPh Clinical Pharmacist, Pharmacy Anticoagulation Clinic [facility] Pager: [phone]. documented in this encounterGerman Hospital11-11-2024 Telephone encounter Note * Telephone Encounter - Alejandro Molina [facility] - 08/26/2024 6:35 AM EST [facility] Anticoagulation Episode Summary Anticoagulation Care Providers Provider Role Specialty Phone number Guanakito Reno MD [facility] Medicine [phone] Cal Mitchell is a 79 year old year old male patient being evaluated today for a Telemanagementvisit. Patient is currently on the following anticoagulant(s) Warfarin. Labs PT INR (no units) Date Value 09/28/2022 1.9 (self reporting) 01/24/2022 2.1 biotel 10/26/2021 2.1 (Biotel) INR (no units) Date Value 07/22/2024 1.5 07/12/2024 2.8 INR (POCT) (no units) Date Value 07/23/2024 1.4 INR Home CoaguChek (no units) Date Value 08/24/2024 3.0 07/31/2024 2.1 07/04/2024 2.2 Hemoglobin (g/dL) Date Value 07/12/2024 10.3 10/06/2020 12.3 Hematocrit (%) Date Value 07/12/2024 34.7 10/06/2020 39.0 Platelet Count (k/uL) Date Value 07/12/2024 190 10/06/2020 189 Creatinine (mg/dL) Date Value 07/12/2024 2.40 04/19/2024 2.35 04/04/2024 2.61 10/06/2020 1.60 07/18/2019 1.46 03/18/2019 1.51 Bilirubin, Total (mg/dL) Date Value 07/12/2024 0.4 10/06/2020 0.4 ALT (U/L) Date Value 07/12/2024 23 10/06/2020 16 AST (U/L) Date Value 07/12/2024 25 10/06/2020 17 Estimated Creatinine Clearance: 29.8 mL/min (A) (based on SCr of 2.4 mg/dL (H)). 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: Anticoagulation Episode Summary Current INR goal: 2.0-3.0 Assessment: INR result of 3.0 is therapeutic Plan: Current Warfarin Dosing As of 08/26/2024 Full warfarin instructions: 5 mg every day Sent [email or web address] message Advised patient to continue current weekly dose as noted above Next INR check due on 09/09/2024 Alejandro Molina RPh Clinical Pharmacist, Pharmacy Anticoagulation Clinic [facility] Pager: [phone]. [facility]11-11-2024 Miscellaneous Notes* Telephone Encounter - Alejandro Molina RPh - 08/26/2024 6:35 AM EST [facility] Anticoagulation Episode Summary Anticoagulation Care Providers Provider Role Specialty Phone number Guanakito Reno MD [facility] [phone] Cal Mitchell is a 79 year old year old male patient being evaluated today for a Telemanagementvisit. Patient is currently on the following anticoagulant(s) Warfarin. Labs PT INR (no units) Date Value 09/28/2022 1.9 (self reporting) 01/24/2022 2.1 biotel 10/26/2021 2.1 (Biotel) INR (no units) Date Value 07/22/2024 1.5 07/12/2024 2.8 INR (POCT) (no units) Date Value 07/23/2024 1.4 INR Home CoaguChek (no units) Date Value 08/24/2024 3.0 07/31/2024 2.1 07/04/2024 2.2 Hemoglobin (g/dL) Date Value 07/12/2024 10.3 10/06/2020 12.3 Hematocrit (%) Date Value 07/12/2024 34.7 10/06/2020 39.0 Platelet Count (k/uL) Date Value 07/12/2024 190 10/06/2020 189 Creatinine (mg/dL) Date Value 07/12/2024 2.40 04/19/2024 2.35 04/04/2024 2.61 10/06/2020 1.60 07/18/2019 1.46 03/18/2019 1.51 Bilirubin, Total (mg/dL) Date Value 07/12/2024 0.4 10/06/2020 0.4 ALT (U/L) Date Value 07/12/2024 23 10/06/2020 16 AST (U/L) Date Value 07/12/2024 25 10/06/2020 17 Estimated Creatinine Clearance: 29.8 mL/min (A) (based on SCr of 2.4 mg/dL (H)). 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: Anticoagulation Episode Summary Current INR goal: 2.0-3.0 Assessment: INR result of 3.0 is therapeutic Plan: Current Warfarin Dosing As of 08/26/2024 Full warfarin instructions: 5 mg every day Sent [email or web address] message Advised patient to continue current weekly dose as noted above Next INR check due on 09/09/2024 Alejandro Molina [facility] Clinical Pharmacist, Pharmacy Anticoagulation Clinic Pharm[facility] Pager: [phone]. documented in this encounterGerman Hospital11-04-2024 NoteHNO ID: [id number] Author: MELANIA GALINDO RN Service: ? Author Type: Registered Nurse Type: Progress Notes Filed: 08/19/2024 12:55 Note Text: Summary: Medication Adherence Review per Request of Payor ACM LUIS RN Reason for review or outreach: Medication Adherence Review Details: Cholesterol FYI/REQUESTED ACTION: Summary / Findings: Atorvastatin was due for refill on/before 08.09.24. [facility] not read Called patient Patient identified by name and date of . Patient Attributed To: QAE Payer: [employer] Action Taken: Data submitted to Payer Contact made with patient: No, Left message BENJIE Schreiber RNW[facility]11-04-[facility]24 History of Present illness Narrative* Melania Galindo RN - 08/19/2024 12:51 PM ESTSummary: Medication Adherence Review per Request of Payor ACM LUIS RN Reason for review or outreach: Medication Adherence Review Details: Cholesterol FYI/REQUESTED ACTION: Summary / Findings: Atorvastatin was due for refill on/before 08.09.24. Sent mychart reminder 08.15.24- not read Called patient Patient identified by name and date of . Patient Attributed To: QADori Payer: [employer] Action Taken: Data submitted to Payer Contact made with patient: No, Left message BENJIE Schreiber RN documented in this encounterGerman Hospital11-04-2024 NotePatient Outreach ([facility]) CAL MITCHELL ([id number]) 1945 M Date Time Provider Department 08/19/24 MELANIA GALINDO [facility] During your visit today, we recorded the following information about you: Melania Galindo RN 08/19/2024 12:55 PM Signed ACM LUIS RN Reason for review or outreach: Medication Adherence Review Details: Cholesterol FYI/REQUESTED ACTION: Summary / Findings: Atorvastatin was due for refill on/before 08.09.24. Sent mychart reminder 08.15.24- not read Called patient Patient identified by name and date of . Patient Attributed To: QAE Payer: [employer] Action Taken: Data submitted to Payer Contact made with patient: No, Left message BENJIE Schreibere Katherine, BENJIE Allergies As of Date: 08/19/2024 (No Known Allergies) Date Reviewed: 08/06/2024 Reviewed by: Bi Cantu LPN - Fully Assessed Reason for Visit: ACM LUIS RN [[id number]] Cmt: Medication Adherence Review per Request of Payor Prescriptions as of 08/19/2024 - iv contrast (will be provided with radiology test) CTA ABD/PEL - No IV access, insert saline lock prior to the sedation, infusion, injection for imaging exam. Discontinue saline lock post exam. If Pt. has a central line or IVAD, may access for administration according to line specific nursing protocol. Once exam is complete flush line and de-access according to line specific nursing protocol in the CT contrast administration guidelines link. - enoxaparin (LOVENOX) 100 mg/mL syrg Inject 1 mL subcutaneously once daily. Inject entire contents of one(1) syringe - atorvastatin (LIPITOR) 80 mg tablet Take 1 tablet by mouth daily at bedtime. For cholesterol. - escitalopram oxalate (LEXAPRO) 10 mg tablet Take 1 tablet by mouth once daily. - finasteride (PROSCAR) 5 mg tablet Take 1 tablet by mouth once daily. - lisinopril (ZESTRIL) 20 mg tablet Take 1 tablet by mouth once daily. - metoprolol succinate ER (TOPROL XL) 50 mg 24 hr tablet Take 1 tablet by mouth once daily. - clopidogrel (PLAVIX) 75 mg tablet Take 1 tablet by mouth once daily. - warfarin (COUMADIN) 5 mg tablet 7.5 mg on Monday, 5 mg all other days or as directed - memantine (NAMENDA) 10 mg tablet Take 1 tablet by mouth once daily. - nitroglycerin sublingual (NITROQUICK) 0.4 mg SL tablet Dissolve 1 tablet under the tongue as needed. for chest pain,every 5 min x3 - acetaminophen (TYLENOL) 500 mg tablet Take 500 mg by mouth every 8 hours as needed. - blood sugar diagnostic (ONETOUCH ULTRA TEST) test strip Test blood sugar(s) one times daily. Dx: 250.00. Insulin: No - Lancets (ONE TOUCH DELICA) Misc lancets Test blood sugar(s) one time daily. Dx: 250.00. Insulin: No Problem List As Of Date 08/19/2024 Noted Resolved Hyperlipidemia, mixed [E78.2] Essential hypertension [I10] Peripheral arterial disease (HCC) [I73.9] Other symptoms involving cardiovascular system * 07/20/2016 ACTINIC KERATOSIS [L57.0] 10/12/2005 IMPACTED CERUMEN [H61.20] 10/12/2005 COPD (chronic obstructive pulmonary disease) (H* 01/29/2020 Obesity, unspecified [E66.9] 07/12/2024 Dysmetabolic Syndrome X [E88.810] 06/24/2005 11/27/2009 OTHER ABNORMAL GLUCOSE [R73.09] 10/12/2005 10/02/2006 PAIN IN LIMB [M79.609] 02/15/2008 04/22/2009 Type 2 diabetes mellitus with stage 3 chronic k*11/27/2009 Pain in joint, shoulder region [M25.519] 12/07/2009 01/29/2020 SK (seborrheic keratosis) [L82.1] 01/26/2011 01/29/2020 AK (actinic keratosis) [L57.0] 01/26/2011 01/29/2020 Skin tags 01/26/2011 03/29/2011 Cutaneous skin tags [L91.8] 03/29/2011 05/24/2018 Occlusion and stenosis of unspecified carotid a*10/25/2013 03/26/2024 Frequency [KLF2348] 02/11/2016 03/26/2024 BPH (benign prostatic hypertrophy) with urinary*02/11/2016 Adhesive capsulitis of right shoulder [M75.01] 05/15/2018 Aortic stenosis [I35.0] 05/24/2018 CKD (chronic kidney disease) stage 3, GFR 30-59*05/24/2018 03/26/2024 Lung nodule [R91.1] 06/07/2018 Ectatic thoracic aorta (HCC) [I77.810] 06/07/2018 Paroxysmal atrial fibrillation (HCC) [I48.0] 03/05/2019 Inflamed seborrheic keratosis [L82.0] 03/14/2019 08/14/2023 Neoplasm of uncertain behavior of skin [D48.5] 03/14/2019 08/14/2023 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 Cannot tell this Nurse what he is taking and not takiing at this time. Bi Cantu LPN August 06, 2024 1:29 PM [facility]10-[facility] Nurse Note* Bi Cantu LPN - 08/06/2024 1:28 PM EDT Patient not a good historian of medications. Cannot tell this Nurse what he is taking and not takiing at this time. Bi Cantu LPN August 06, 2024 1:29 PM documented in this encounterGerman Hospital10-22-2024 NoteHNO ID: [id number] Author: LAURA IRAHETA MD Service: ? Author Type: Physician Type: Progress Notes Filed: 08/06/2024 17:14 Note Text: Heart , Vascular and Thoracic [facility] DEPARTMENT OF VASCULAR SURGERY OUTPATIENT VISIT DATE August 06, 2024 OUTPATIENT VISIT TYPE CONSULTATION SERVICE DATE: 08/06/2024 SERVICE TIME: 4:41 PM PRIMARY CARE PHYSICIAN: Guanakito Reno MD REFERRING PROVIDER: No referring provider defined for this encounter. Consult requested for an opinion regarding the evaluation and treatment of the above. My final impression and recommendations will be communicated back to the requesting physician by way of the shared medical record or letter via US mail. CHIEF COMPLAINT: Carotid Stenosis HISTORY OF PRESENT ILLNESS: Vascular consultation at the request of . A copy of this consultation note will be provided to the requesting physician by way of shared Medical record or letter to requesting physician via US mail. Mr. Mitchell is a 79 year old male who is seen today for carotid stenosis. Mr. Mitchell was evaluated in the valve clinic and underwent a carotid US as part of his workup. Of note, he previously had a R CEA. Unclear when this surgery was performed. Denied history of stroke or TIA. He has some baseline dementia and is present with a family member. He was determined to not be a good candidate for TAVR due to comorbidities. PAST MEDICAL HISTORY Diagnosis Date Actinic keratosis 10/2004 Aortic valve stenosis BPH (benign prostatic hyperplasia) Carotid artery stenosis Chronic airway obstruction, not elsewhere classified 10/2004 Diabetes (HCC) Diverticulosis of colon (without mention of hemorrhage) Ectatic thoracic aorta (HCC) 06/07/2018 06/07/18 Chest CTA: There is atherosclerotic calcification of the thoracic aorta with mild fusiform ectasia of the descending component measuring 3.2 x 3.1 cm Essential hypertension Hyperlipidemia Impacted cerumen 10/2004 Obesity, unspecified 11/2003 Other and unspecified hyperlipidemia 10/2003 Other symptoms involving cardiovascular system 10/2004 Peripheral vascular disease, unspecified (HCC) 10/2004 R carotid Unspecified essential hypertension 04/2004 PAST SURGICAL HISTORY Procedure Laterality Date ARTL CATHJ/CANNULJ MNTR/TRANSFUSION SPX PRQ 04-17-14 COLONOSCOPY FLX DX W/COLLJ SPEC WHEN PFRMD 40 years ago Colonoscopy COLONOSCOPY FLX DX W/COLLJ SPEC WHEN PFRMD 03/02/11 DSTRJ LESION PENIS SIMPLE CHEMICAL 10/20 PAST SURGICAL HISTORY OF Skin tag removals - bilateral axillary REMOVAL IMPACTED CERUMEN INSTRUMENTATION UNILAT 10/20 TEAEC W/PATCH GRF CAROTID VERTB SUBCLAV NECK INC 04-17-14 RIGHT SOCIAL HISTORY: Social History Tobacco Use Smoking status: Former Current packs/day: 0.00 Average packs/day: 2.0 packs/day for 10.0 years (20.0 ttl pk-yrs) Types: Cigarettes Start date: 12/05/1975 Quit date: 12/05/1985 Years since quittin.6 Smokeless tobacco: Never Vaping Use Vaping status: Never Used Substance Use Topics Alcohol use: No Comment: none now; social in past Drug use: No FAMILY HISTORY Problem Relation Age of Onset Heart Mother of CHF Stroke Maternal Grandfather MEDICATIONS: iv contrast (will be provided with radiology test) CTA ABD/PEL - No IV access, insert saline lock prior to the sedation, infusion, injection for imaging exam. Discontinue saline lock post exam. If Pt. has a central line or IVAD, may access for administration according to line specific nursing protocol. Once exam is complete flush line and de-access according to line specific nursing protocol in the CT contrast administration guidelines link. enoxaparin (LOVENOX) 100 mg/mL syrg Inject 1 mL subcutaneously once daily. Inject entire contents of one(1) syringe atorvastatin (LIPITOR) 80 mg tablet Take 1 tablet by mouth daily at bedtime. For cholesterol. escitalopram oxalate (LEXAPRO) 10 mg tablet Take 1 tablet by mouth once daily. finasteride (PROSCAR) 5 mg tablet Take 1 tablet by mouth once daily. lisinopril (ZESTRIL) 20 mg tablet Take 1 tablet by mouth once daily. metoprolol succinate ER (TOPROL XL) 50 mg 24 hr tablet Take 1 tablet by mouth once daily. clopidogrel (PLAVIX) 75 mg tablet Take 1 tablet by mouth once daily. warfarin (COUMADIN) 5 mg tablet 7.5 mg on Monday, 5 mg all other days or as directed memantine (NAMENDA) 10 mg tablet Take 1 tablet by mouth once daily. nitroglycerin sublingual (NITROQUICK) 0.4 mg SL tablet Dissolve 1 tablet under the tongue as needed. for chest pain,every 5 min x3 acetaminophen (TYLENOL) 500 mg tablet Take 500 mg by mouth every 8 hours as needed. (Patient not taking: Reported on 08/06/2024) blood sugar diagnostic (BrandYourselfTOUCH ULTRA TEST) test strip Test blood sugar(s) one times daily. Dx: 250.00. Insulin: No Lancets (ONE TOUCH DELICA) [facility] lancets Test blood sugar(s) one time daily. Dx: 250.00. Insulin: No ALLERGIES: ALLERG (more content not included)...[facility]10-22-2024 History of Present illness Narrative* Laura Iraheta MD - 08/06/2024 1:25 PM EDT Images from the original note were not included. Heart , Vascular and Thoracic [facility] DEPARTMENT OF VASCULAR SURGERY OUTPATIENT VISIT DATE August 06, 2024 OUTPATIENT VISIT TYPE CONSULTATION SERVICE DATE: 08/06/2024 SERVICE TIME: 4:41 PM PRIMARY CARE PHYSICIAN: Guanakito Reno MD REFERRING PROVIDER: No referring provider defined for this encounter. Consult requested for an opinion regarding the evaluation and treatment of the above. My final impression and recommendations will be communicated back to the requesting physician by way of the shared medical record or letter via US mail. CHIEF COMPLAINT: Carotid Stenosis HISTORY OF PRESENT ILLNESS: Vascular consultation at the request of . A copy of this consultation note will be provided to the requesting physician by way of shared Medical record or letter to requesting physician via US mail. Mr. Mitchell is a 79 year old male who is seen today for carotid stenosis. Mr. Mitchell was evaluated in the valve clinic and underwent a carotid US as part of his workup. Of note, he previously had a R CEA. Unclear when this surgery was performed. Denied history of stroke or TIA. He has some baseline dementia and is present with a family member. He was determined to not be a good candidate forTAVR due to comorbidities. PAST MEDICAL HISTORY Diagnosis Date Actinic keratosis 10/2004 Aortic valve stenosis BPH (benign prostatic hyperplasia) Carotid artery stenosis Chronic airway obstruction, not elsewhere classified 10/2004 Diabetes (HCC) Diverticulosis of colon (without mention of hemorrhage) Ectatic thoracic aorta (HCC) 06/07/2018 06/07/18 Chest CTA: There is atherosclerotic calcification of the thoracic aorta with mild fusiform ectasia of the descending component measuring 3.2 x 3.1 cm Essential hypertension Hyperlipidemia Impacted cerumen 10/2004 Obesity, unspecified 11/2003 Other and unspecified hyperlipidemia 10/2003 Other symptoms involving cardiovascular system 10/2004 Peripheral vascular disease, unspecified (HCC) 10/2004 R carotid Unspecified essential hypertension 04/2004 PAST SURGICAL HISTORY Procedure Laterality Date ARTL CATHJ/CANNULJ MNTR/TRANSFUSION SPX PRQ 04-17-14 COLONOSCOPY FLX DX W/COLLJ SPEC WHEN PFRMD 40 years ago Colonoscopy COLONOSCOPY FLX DX W/COLLJ SPEC WHEN PFRMD 03/02/11 DSTRJ LESION PENIS SIMPLE CHEMICAL 10/20 PAST SURGICAL HISTORY OF Skin tag removals - bilateral axillary REMOVAL IMPACTED CERUMEN INSTRUMENTATION UNILAT 10/20 TEAEC W/PATCH GRF CAROTID VERTB SUBCLAV NECK INC 04-17-14 RIGHT SOCIAL HISTORY: Social History Tobacco Use Smoking status: Former Current packs/day: 0.00 Average packs/day: 2.0 packs/day for 10.0 years (20.0 ttl pk-yrs) Types: Cigarettes Start date: 12/05/1975 Quit date: 12/05/1985 Years since quittin.6 Smokeless tobacco: Never Vaping Use Vaping status: Never Used Substance Use Topics Alcohol use: No Comment: none now; social in past Drug use: No FAMILY HISTORY Problem Relation Age of Onset Heart Mother of CHF Stroke Maternal Grandfather MEDICATIONS: iv contrast (will be provided with radiology test) CTA ABD/PEL - No IV access, insert saline lock prior to the sedation, infusion, injection for imaging exam. Discontinue saline lock post exam. If Pt. has a central line or IVAD, may access for administration according to line specific nursing protocol. Once exam is complete flush line and de-access according to line specific nursing protocol in the CT contrast administration guidelines link. enoxaparin (LOVENOX) 100 mg/mL syrg Inject 1 mL subcutaneously once daily. Inject entire contents of one(1) syringe atorvastatin (LIPITOR) 80 mg tablet Take 1 tablet by mouth daily at bedtime. For cholesterol. escitalopram oxalate (LEXAPRO) 10 mg tablet Take 1 tablet by mouth once daily. finasteride (PROSCAR) 5 mg tablet Take 1 tablet by mouth once daily. lisinopril (ZESTRIL) 20 mg tablet Take 1 tablet by mouth once daily. metoprolol succinate ER (TOPROL XL) 50 mg 24 hr tablet Take 1 tablet by mouth once daily. clopidogrel (PLAVIX) 75 mg tablet Take 1 tablet by mouth once daily. warfarin (COUMADIN) 5 mg tablet 7.5 mg on Monday, 5 mg all other days or as directed memantine (NAMENDA) 10 mg tablet Take 1 tablet by mouth once daily. nitroglycerin sublingual (NITROQUICK) 0.4 mg SL tablet Dissolve 1 tablet under the tongue as needed. for chest pain,every 5 min x3 acetaminophen (TYLENOL) 500 mg tablet Take 500 mg by mouth every 8 hours as needed. (Patient not taking: Reported on 08/06/2024) blood sugar diagnostic (ONETOUCH ULTRA TEST) test strip Test blood sugar(s) one times daily. Dx: 250.00. Insulin: No Lancets (ONE TOUCH DELICA) Misc lancets Test blood sugar(s) one time daily. Dx: 250.00. Insulin: No ALLERGIES: ALLERGIES No Known Allergies REVIEW OF SYSTEM: Constitutional: No weight loss, malaise or fevers. Respiratory: Negative for SOB Cardiovascular: Negative for chest pain or recent NM Gatrointestinal: Negative for abdominal discomfort Genitourinary: Negative for CKD Musculoskeletal: Negative for joint pain or swelling, back pain or muscle pain Endocrine: +DM Hematology/Lymphatic: No bleeding or clotting disorders Neurologic: Negative for stroke Integumentary: Negative for wounds PHYSICAL EXAM: VITALS: BP 128/68 Pulse 61 Ht 5' 10"[patient reports[ (1.78m) Wt 240 lb (108.9kg) SpO2 99% BMI 34.44 kg/(m^2). General: Alert and oriented, No acute distress HEENT: EOMI, No carotid bruit Cardiovascular: Pulse regular. Lungs: Normal breath sounds, no wheezes. Abdomen: Soft, non-tender. Extremities: No edema, no chronic skin changes, no ulceration Neurological: Normal cognition and motor skills. No weakness or sensory deficit. Vascular: 2+ bilateral radial palpable Diagnostic tests reviewed for today's visit: Most recent labs Most recent imaging 05/02/24 - Carotid US - R 20-39%, L 60-79% IMPRESSION: Mr. Mitchell is a 79 year old male with asymptomatic carotid stenosis. We discussed that since hiscarotid stenosis is less then 80% and he is asymptomatic, no intervention is needed at this time. Additionally neither the patient nor his family are interested in invasive procedures at this time. Will see in 1 year with carotid US. If >80% would refer to [facility]IL to discuss TFCS. PLAN and RECOMMENDATIONS: Follow up in 1 year with carotid US SIGNATURE: Laura Iraheta MD PATIENT NAME: Cal Mitchell DATE: August 06, 2024 TIME: 4:41 PM documented in this encounterGerman Hospital10-17-2024 Telephone encounter Note * Telephone Encounter - Josselyn Mayer APRN.CNP - 08/01/2024 9:56 AM EDT I spoke with Gustavo and communicated recommendations of medical therapy. He reports patient also expressed wanting to continue without any further intervention. Patient and family agreeable to plan. Josselyn Mayer APRN.CNP [facility]10-17-2024 Miscellaneous Notes* Telephone Encounter - Josselyn Mayer APRN.CNP - 08/01/2024 9:56 AM EDT I spoke with Gustavo and communicated recommendations of medical therapy. He reports patient also expressed wanting to continue without any further intervention. Patient and family agreeable to plan. Josselyn Mayer APRN.CNP * Telephone Encounter - Chely Nicolas RN - 07/31/2024 3:53 PM EDT Gustavo calls requesting a return call at [phone]. Chely Nicolas, RN * Telephone Encounter - Josselyn Mayer APRN.CNP - 07/30/2024 10:34 AM EDT Attempted to contact patient and his family to update him on the treatment plan. Left voicemail requesting phone call back. Josselyn Mayer APRN.CNP documented in this encounterGerman Hospital10-16-2024 Telephone encounter Note * Telephone Encounter - Chely Nicolas RN - 07/31/2024 3:53 PM EDT Gustavo calls requesting a return call at [phone]. Chely Nicolas RN [facility]10-15-2024 NoteHNO ID: [id number] Author: JOSSELYN MAYER APRN.CNP Service: ? Author Type: Nurse Practitioner Type: Progress Notes Filed: 07/30/2024 10:47 Note Text: MULTI DISCIPLINARY HIGH RISK AVR CARDIAC TEAM Members present: Dr. Malcolm, Dr. Thacker, Dr. Norman, Dr. Escalera, Dr. Reddy, Gian Mayer APRN, CNP, Frank Piña CNP, PA. Francesca, ALEJANDRA Rice, Niels Cardoza CNP, Tj Lambert CNP, Frank Mello CNP Presenting Physician: see members listed above PATIENT NAME:Cal Mitchell DATE: 07/30/2024 Outcome: Cal Mitchell history and imaging were reviewed by the physicians in attendance. Patient has CKD, dementia, severe coronary artery disease, and severe aortic valve stenosis. Patient and family have also communicated they would likely prefer no further intervention. The collaborative recommendation would be to proceed with medical therapy. These recommendations will be communicated to the patient by our office. Josselyn Mayer APRN.CNP 07/30/2024[facility]10-15-[facility] History of Present illness Narrative* Josselyn Mayer APRN.CNP - 07/30/2024 10:45 AM EDT MULTI DISCIPLINARY HIGH RISK AVR CARDIAC TEAM Members present: Dr. Malcolm, Dr. Thacker, Dr. Norman, Dr. Escalera, Gian Boyd APRN, CNP, Frank Piña CNP, PA. Francesca, ALEJANDRA Rice, Niels Cardoza CNP, Tj Lambert CNP, Frank Mello CNP Presenting Physician: see members listed above PATIENT NAME:Cal Mitchell DATE: 07/30/2024 Outcome: Cal Mitchell history and imaging were reviewed by the physicians in attendance. Patient has CKD, dementia, severe coronary artery disease, and severe aortic valve stenosis. Patient and family have also communicated they would likely prefer no further intervention. The collaborative recommendation would be to proceed with medical therapy. These recommendations will be communicated to the patient by our office. Josselyn Mayer APRN.CNP 07/30/2024 documented in this encounterGerman Hospital10-15-2024 Telephone encounter Note * Telephone Encounter - Josselyn Mayer APRN.CNP - 07/30/2024 10:34 AM EDT Attempted to contact patient and his family to update him on the treatment plan. Left voicemail requesting phone call back. Josselyn Mayer APRN.CNP [facility]10-11-2024 Telephone encounter Note* Telephone Encounter - Kamran Ayon RPh - 07/26/2024 4:22 PM EDT Images from the original note were not included. Called and left voice message for daughter January asking her to return call to [facility] to discuss if Lovenox was started for patient. Josselyn Mayer APRN.CNP Battle, Stacey, RNYester (2:01 PM) I sent 8 syringes to the pharmacy. I think that should be enough to hold him over since he should only need 3 injections prior, but happy to send more if he takes longer than 5 days to be therapeutics/p cath. As tomorrow would be day 5 post procedure, will send MYC message as well asking patient to test INR. Kamran Ayon PharmD, BCPS [facility]10-11-2024 Miscellaneous Notes* Telephone Encounter - Kamran Ayon RPh - 07/26/2024 4:22 PM EDT Images from the original note were not included. Called and left voice message for daughter January asking her to return call to [facility] to discuss if Lovenox was started for patient. Josselyn Mayer APRN.Chely Cho, RNYeer (2:01 PM) I sent 8 syringes to the pharmacy. I think that should be enough to hold him over since he should only need 3 injections prior, but happy to send more if he takes longer than 5 days to be therapeutics/p cath. As tomorrow would be day 5 post procedure, will send MYC message as well asking patient to test INR. Kamran Ayon PharmD, BCPS * Telephone Encounter - Jimmy Carrizales [facility] - 07/25/2024 11:45 AM EDT Left voice message asking patient at [phone] (home) or daughter January to call the Anticoagulation Clinic at [phone] re: patient recenly off warfarin for heart cath on 07/23/24. Patient was prescribed Lovenox 100 mg sq Once daily by cardiology. Next Action for Anti coag Management: TM Remote Jimmy Carrizales PharmD., CACP documented in this encounterGerman Hospital10-10-2024 Telephone encounter Note * Telephone Encounter - Jimmy Carrizales RP - 07/25/2024 11:45 AM EDT Left voice message asking patient at [phone] (home) or daughter January to call the Anticoagulation Clinic at [phone] re: patient recenly off warfarin for heart cath on 07/23/24. Patient was prescribed Lovenox 100 mg sq Once daily by cardiology. Next Action for Anti coag Management: TM Remote Jimmy R. Plantner, PharmD., CACP [facility]10-08-2024 NoteHNO ID: [id number] Author: PAM REDDY MD Service: Cardiovascular Surgery Author Type: Physician Type: Procedures Filed: 07/23/2024 10:39 Note Text: LEFT HEART CATHETERIZATION PROCEDURE NOTE Surgery/Procedure Date: 07/23/2024 Referring Physician: Clinical History: This is a 79 year old male with aortic stenosis for coronary angiography and right heart cath Consent: Informed consent was obtained after the risks, benefits, and alternatives to and of this procedure were discussed in detail with the patient. Procedure in Detail: The patient was brought to the cardiac catheterization laboratory, prepped and draped in the usual sterile fashion. Anxiolysis was achieved with intravenous and intravenous benadryl. Local anesthesia was achieved over the groin with 1% lidocaine. A pre-flushed 6-Kyrgyz sheath was inserted into the femoral artery via the Seldinger technique without complications. Retrograde percutaneous diagnostic coronary angiography and left ventriculography were performed using a Heath left 4 catheter, a 3-D RC catheter, and an angled pigtail catheter. There were no complications of the procedure. Findings: Angiography: LEFT MAIN: Normal . LEFT CIRCUMFLEX: Occlusion of distal Circumflex. LEFT ANTERIOR DESCENDING: Severe mid LAD disease. . RIGHT CORONARY ARTERY: Dominant with mild RCA disease. LEFT VENTRICULOGRAPHY: not done . Right heart cath: Normal PA pressure Normal PWP At this point, the procedure was terminated. All diagnostic wires and catheters were removed. Recommendations: 1. Daily aspirin indefinitely 2. Valve team evaluation . 3. Statin use 4. Secondary cardiac prevention measures. SIGNATURE: Pam Reddy MD PATIENT NAME: Cal Mitchell DATE: July 23, 2024 TIME: 10:19 [facility]10-08-2024 History of Present illness Narrative* Jeremías Lofton, RT(R) - 07/23/2024 7:30 AM EDT Radiology Service Progress Note DATE OF SERVICE: July 23, 2024 TIME: 9:13 AM PATIENT IDENTITY VERIFICATION COMPLETED USING TWO (2) STANDARD IDENTIFIERS: Name and Date of confirmed by patient verbally and Name and Date of confirmed by identification band. FALL SCREENING: Has the patient had 2 falls in the last year or 1 fall with injury or currently using an Ambulatory Assistive Device (Walker, Cane, Wheelchair, Crutches, etc.)? No PATIENT GENDER DATA: Male PATIENT RELEVANT IMPLANT DATA REVIEWED: Not Applicable PATIENT PRESENTS WITH AN IMPLANTABLE OR ATTACHED LONG GOODS DRIER: No ALLERGIES: Reviewed and unchanged CONTRAST ALLERGY: NO. EXAM: CT -CONTRAST INDUCED NEPHROPATHY RISK FACTORS: Patient age > 60 years CREATININE: Creatinine Date Value Ref Range Status 07/12/2024 2.40 (H) 0.73 - 1.22 mg/dL Final 04/19/2024 2.35 (H) 0.73 - 1.22 mg/dL Final 04/04/2024 2.61 (H) 0.73 - 1.22 mg/dL Final Estimated Glomerular Filtration Rate Date Value Ref Range Status 07/12/2024 26 (L) >=60 mL/min/1.73m Final Comment: Estimated Glomerular Filtration Rate (eGFR) is calculated using the 2020 CKD-EPI creatinine equation. This equation utilizes serum creatinine, sex, and age as parameters. The creatinine assay has traceable calibration to isotope dilution- mass spectrometry. Refer to KDIGO guidelines for clinical interpretation. In patients with unstable renal function, e.g. those with acute kidney injury, the eGFRmay not accurately reflect actual GFR. eGFR- Date Value Ref Range Status 10/06/2020 51 Final P.O.C.T. RESULTS: N/A July 23, 2024 TREATMENT: Hydration after heart cath & TAVR PERIPHERAL IV DATA: IV placed in POD; left AC 20g RADIOLOGY DEPARTMENT: CT; Exam(s) Completed: CTA Abdomen Pelvis and CTA Chest SIGNATURE: ABIGAIL Belle) PATIENT NAME: Cal Mitchell DATE: July 23, 2024 TIME: 9:13 AM documented in this encounterGerman Hospital10-08-2024 NoteHNO ID: [id number] Author: JEREMÍAS LOFTON RT (R) Service: Radiology Author Type: Technologist Type: Progress Notes Filed: 07/23/2024 09:18 Note Text: Radiology Service Progress Note DATE OF SERVICE: July 23, 2024 TIME: 9:13 AM PATIENT IDENTITY VERIFICATION COMPLETED USING TWO (2) STANDARD IDENTIFIERS: Name and Date of confirmed by patient verbally and Name and Date of confirmed by identification band. FALL SCREENING: Has the patient had 2 falls in the last year or 1 fall with injury or currently using an Ambulatory Assistive Device (Walker, Cane, Wheelchair, Crutches, etc.)? No PATIENT GENDER DATA: Male PATIENT RELEVANT IMPLANT DATA REVIEWED: Not Applicable PATIENT PRESENTS WITH AN IMPLANTABLE OR ATTACHED LONG GOODS DRIER: No ALLERGIES: Reviewed and unchanged CONTRAST ALLERGY: NO. EXAM: CT -CONTRAST INDUCED NEPHROPATHY RISK FACTORS: Patient age > 60 years CREATININE: Creatinine Date Value Ref Range Status 07/12/2024 2.40 (H) 0.73 - 1.22 mg/dL Final 04/19/2024 2.35 (H) 0.73 - 1.22 mg/dL Final 04/04/2024 2.61 (H) 0.73 - 1.22 mg/dL Final Estimated Glomerular Filtration Rate Date Value Ref Range Status 07/12/2024 26 (L) >=60 mL/min/1.73m? Final Comment: Estimated Glomerular Filtration Rate (eGFR) is calculated using the 2020 CKD-EPI creatinine equation. This equation utilizes serum creatinine, sex, and age as parameters. The creatinine assay has traceable calibration to isotope dilution-mass spectrometry. Refer to KDIGO guidelines for clinical interpretation. In patients with unstable renal function, e.g. those with acute kidney injury, the eGFR may not accurately reflect actual GFR. eGFR- Date Value Ref Range Status 10/06/2020 51 Final P.O.C.T. RESULTS: N/A July 23, 2024 TREATMENT: Hydration after heart cath AND TAVR PERIPHERAL IV DATA: IV placed in POD; left AC 20g RADIOLOGY DEPARTMENT: CT; Exam(s) Completed: CTA Abdomen Pelvis and CTA Chest SIGNATURE: RT Yoshi(R) PATIENT NAME: Cal Mitchell DATE: July 23, 2024 TIME: 9:13 [facility] Tele[facility] Note* Telephone Encounter - Josselyn Barrow LPN - 07/15/2024 3:19 PM EDT Notified Gustavo. [facility]09-30-2024 Miscellaneous Notes* Telephone Encounter - Josselyn Barrow LPN - 07/15/2024 3:19 PM EDT Notified Gustavo. * Telephone Encounter - Guanakito Reno MD - 07/15/2024 2:40 PM EDT Agree. As long as he is aware. * Telephone Encounter - Teresa Alexis RN - 07/15/2024 2:17 PM EDT Patient's son Gustavo calling to say patient is scheduled for cardiac cath on 07/23/24 but Nephrology appointment is not scheduled until 08/07/24. Dr. Reddy tells them he is aware of kidney issues andcan give increased IV fluid during procedure to protect kidneys. They would like PCP recommendationbefore proceeding. Teresa Alexis, RN documented in this encounterGerman Hospital09-30-2024 Telephone encounter Note * Telephone Encounter - Magdalena Laird LPN - 07/15/2024 3:15 PM EDT Son notified of results and provider message. Magdalena Laird LPN [facility]09-30-2024 Miscellaneous Notes* Telephone Encounter - Magdalena Laird LPN - 07/15/2024 3:15 PM EDT Son notified of results and provider message. Magdalena Laird LPN * Telephone Encounter - Carolina Alba MA - 07/15/2024 2:14 PM EDT Message left for return call. Carolina Alba MA * Telephone Encounter - Guanakito Reno MD - 07/15/2024 1:04 PM EDT Kidney function and anemia are stable. See nephrology as we had recommended. Sugars are overall notbad. Hold on amaryl. Call sugars in two weeks to see how he does off of meds. documented in this encounterGerman Hospital09-30-2024 Telephone encounter Note * Telephone Encounter - Guanakito Reno MD - 07/15/2024 2:40 PM EDT Agree. As long as he is aware. [facility]-30-[facility] Telephone encounter Note* Telephone Encounter - Teresa Alexis RN - 07/15/2024 2:17 PM EDT Patient's son Gustavo calling to say patient is scheduled for cardiac cath on 07/23/24 but Nephrology appointment is not scheduled until 08/07/24. Dr. Reddy tells them he is aware of kidney issues andcan give increased IV fluid during procedure to protect kidneys. They would like PCP recommendationbefore proceeding. Teresa Alexis, RN [facility]09-30-2024 Telephone encounter Note* Telephone Encounter - Carolina Alba MA - 07/15/2024 2:14 PM EDT Message left for return call. Carolina Alba MA [facility]09-30-2024 Telephone encounter Note* Telephone Encounter - Guanakito Reno MD - 07/15/2024 1:04 PM EDT Kidney function and anemia are stable. See nephrology as we had recommended. Sugars are overall notbad. Hold on amaryl. Call sugars in two weeks to see how he does off of meds. [facility]09-30-2024 NoteHNO ID: [id number] Author: GUANAKITO RENO MD Service: ? Author Type: Physician Type: Progress Notes Filed: 07/15/2024 08:05 Note Text: Apparently second visit created in error.[facility]09-30-2024 History of Present illness Narrative* Guanakito Reno MD - 07/15/2024 8:03 AM EDT Apparently second visit created in error. documented in this encounterGerman Hospital09-27-2024 Telephone encounter Note * Telephone Encounter - Guanakito Reno MD - 07/12/2024 12:49 PM EDT Noted. Thank you [facility]09-27-2024 Miscellaneous Notes* Telephone Encounter - Guanakito Reno MD - 07/12/2024 12:49 PM EDT Noted. Thank you * Telephone Encounter - Art Estes - 07/12/2024 12:34 PM EDT Attempted to find sooner apt time for patients nephrology apt, no sooner times within [facility] facilities that are faster than patients [facility] apt. documented in this encounterGerman Hospital09-27-2024 Telephone encounter Note * Telephone Encounter - Art Estes - 07/12/2024 12:34 PM EDT Attempted to find sooner apt time for patients nephrology apt, no sooner times within [facility] facilities that are faster than patients [facility] apt. [facility]09-27-2024 NoteHNO ID: [id number] Author: GUANAKITO RENO MD Service: ? Author Type: Physician Type: Progress Notes Filed: 07/12/2024 12:12 Note Text: Patient presents with: Follow Up HPI: Patient presents today for office visit for follow up. We had referred him to nephrology in March for ckd and anemia of ckd. Has stopped HCTZ. Actos. Melatonin. Still with pitting edema. Denies chest pain. No new or worsening shortness of breath. Currently wearing [employer] heart monitor. Placed yesterday. Follows with Cardiology. Dr. Reddy. Continues on Warfarin. Last INR 07/04/24 2.2 done remotely. No bleeding or bruising concerns. Per patient his memory is unchanged. According to son-in-law whom is with him at appointment states patient has "zone out" periods. Sometimes has hard time trying to convey things. Continues on Namenda. Had been referred to vascular surgery. Considering work up for TAVR and seeing vascular for his carotid disease. Hard time falling asleep sometimes. Admits to being awake all night long and then sleeps all day. Appetite has dwindled. Eating smaller and smaller portions. Has limited caffeine. Drinking water with flavoring packets. Trying to eat more protein and limit salt. Has not been checking his sugars. Discussed checking sugar when he zones out. If A1c remains low. We may stop his amaryl. Dicussed that his anemia may well be due to his kidney disease MEDICATIONS: Current Outpatient Medications Medication Sig iv contrast (will be provided with radiology test) CTA ABD/PEL - No IV access, insert saline lock prior to the sedation, infusion, injection for imaging exam. Discontinue saline lock post exam. If Pt. has a central line or IVAD, may access for administration according to line specific nursing protocol. Once exam is complete flush line and de-access according to line specific nursing protocol in the CT contrast administration guidelines link. enoxaparin (LOVENOX) 100 mg/mL syrg Inject 1 mL subcutaneously once daily. Inject entire contents of one(1) syringe atorvastatin (LIPITOR) 80 mg tablet Take 1 tablet by mouth daily at bedtime. For cholesterol. escitalopram oxalate (LEXAPRO) 10 mg tablet Take 1 tablet by mouth once daily. finasteride (PROSCAR) 5 mg tablet Take 1 tablet by mouth once daily. lisinopril (ZESTRIL) 20 mg tablet Take 1 tablet by mouth once daily. metoprolol succinate ER (TOPROL XL) 50 mg 24 hr tablet Take 1 tablet by mouth once daily. clopidogrel (PLAVIX) 75 mg tablet Take 1 tablet by mouth once daily. warfarin (COUMADIN) 5 mg tablet 7.5 mg on Monday, 5 mg all other days or as directed memantine (NAMENDA) 10 mg tablet Take 1 tablet by mouth once daily. glimepiride (AMARYL) 2 mg tablet Take 1 tablet by mouth daily with breakfast. nitroglycerin sublingual (NITROQUICK) 0.4 mg SL tablet Dissolve 1 tablet under the tongue as needed. for chest pain,every 5 min x3 acetaminophen (TYLENOL) 500 mg tablet Take 500 mg by mouth every 8 hours as needed. blood sugar diagnostic (ONETOUCH ULTRA TEST) test strip Test blood sugar(s) one times daily. Dx: 250.00. Insulin: No Lancets (ONE TOUCH DELICA) [facility] lancets Test blood sugar(s) one time daily. Dx: 250.00. Insulin: No No current facility-administered medications for this visit. ALLERGIES: ALLERGIES No Known Allergies PAST MEDICAL HISTORY Diagnosis Date Actinic keratosis 10/2004 BPH (benign prostatic hyperplasia) Carotid artery stenosis Chronic airway obstruction, not elsewhere classified 10/2004 Diabetes (HCC) Diverticulosis of colon (without mention of hemorrhage) Ectatic thoracic aorta (HCC) 06/07/2018 06/07/18 Chest CTA: There is atherosclerotic calcification of the thoracic aorta with mild fusiform ectasia of the descending component measuring 3.2 x 3.1 cm Impacted cerumen 10/2004 Obesity, unspecified 11/2003 Other and unspecified hyperlipidemia 10/2003 Other symptoms involving cardiovascular system 10/2004 Peripheral vascular disease, unspecified (HCC) 10/2004 R carotid Unspecified essential hypertension 04/2004 PAST SURGICAL HISTORY Procedure Laterality Date ARTL CATHJ/CANNULJ MNTR/TRANSFUSION SPX PRQ 04-17-14 COLONOSCOPY FLX DX W/COLLJ SPEC WHEN PFRMD 40 years ago Colonoscopy COLONOSCOPY FLX DX W/COLLJ SPEC WHEN PFRMD 03/02/11 DSTRJ LESION PENIS SIMPLE CHEMICAL 10/20 PAST SURGICAL HISTORY OF Skin tag removals - bilateral axillary REMOVAL IMPACTED CERUMEN INSTRUMENTATION UNILAT 10/20 TEAEC W/PATCH GRF CAROTID VERTB SUBCLAV NECK INC 04-17-14 RIGHT FAMILY HISTORY Problem Relation Age of Onset Heart Mother of CHF Stroke Maternal Grandfather Social History Tobacco Use Smoking status: Former Current packs/day: 0.00 Average packs/day: 2.0 packs/day for 10.0 years (20.0 ttl pk-yrs) Types: Cigarettes Start date: 12/05/1975 Quit date: 12/05/1985 Years since quittin.6 Smokeless tobacco: Never Vaping Use Vaping status: Never Used (more content not included)...[facility]09-27-2024 History of Present illness Narrative* Guanakito Reno MD - 07/12/2024 11:22 AM EDT Patient presents with: Follow Up HPI: Patient presents today for office visit for follow up. We had referred him to nephrology in March for ckd and anemia of ckd. Has stopped HCTZ. Actos. Melatonin. Still with pitting edema. Denies chest pain. No new or worsening shortness of breath. Currently wearing [employer] heart monitor. Placed yesterday. Follows with Cardiology. Dr. Reddy. Continues on Warfarin. Last INR 07/04/24 2.2 done remotely. No bleeding or bruising concerns. Per patient his memory is unchanged. According to son-in-law whom is with him at appointment statespatient has "zone out" periods. Sometimes has hard time trying to convey things. Continues on Namenda. Had been referred to vascular surgery. Considering work up for TAVR and seeing vascular for his carotid disease. Hard time falling asleep sometimes. Admits to being awake all night long and then sleeps all day. Appetite has dwindled. Eating smaller and smaller portions. Has limited caffeine. Drinking water with flavoring packets. Trying to eat more protein and limit salt. Has not been checking his sugars. Discussed checking sugar when he zones out. If A1c remains low. We may stop his amaryl. Dicussed that his anemia may well be due to his kidney disease MEDICATIONS: Current Outpatient Medications Medication Sig iv contrast (will be provided with radiology test) CTA ABD/PEL - No IV access, insert saline lock prior to the sedation, infusion, injection for imaging exam. Discontinue saline lock post exam. If Pt. has a central line or IVAD, may access for administration according to line specific nursing protocol. Once exam is complete flush line and de-access according to line specific nursing protocol in the CT contrast administration guidelines link. enoxaparin (LOVENOX) 100 mg/mL syrg Inject 1 mL subcutaneously once daily. Inject entire contents of one(1) syringe atorvastatin (LIPITOR) 80 mg tablet Take 1 tablet by mouth daily at bedtime. For cholesterol. escitalopram oxalate (LEXAPRO) 10 mg tablet Take 1 tablet by mouth once daily. finasteride (PROSCAR) 5 mg tablet Take 1 tablet by mouth once daily. lisinopril (ZESTRIL) 20 mg tablet Take 1 tablet by mouth once daily. metoprolol succinate ER (TOPROL XL) 50 mg 24 hr tablet Take 1 tablet by mouth once daily. clopidogrel (PLAVIX) 75 mg tablet Take 1 tablet by mouth once daily. warfarin (COUMADIN) 5 mg tablet 7.5 mg on Monday, 5 mg all other days or as directed memantine (NAMENDA) 10 mg tablet Take 1 tablet by mouth once daily. glimepiride (AMARYL) 2 mg tablet Take 1 tablet by mouth daily with breakfast. nitroglycerin sublingual (NITROQUICK) 0.4 mg SL tablet Dissolve 1 tablet under the tongue as needed. for chest pain,every 5 min x3 acetaminophen (TYLENOL) 500 mg tablet Take 500 mg by mouth every 8 hours as needed. blood sugar diagnostic (ONETOUCH ULTRA TEST) test strip Test blood sugar(s) one times daily. Dx: 250.00. Insulin: No Lancets (ONE TOUCH DELICA) [facility] lancets Test blood sugar(s) one time daily. Dx: 250.00. Insulin: No No current facility-administered medications for this visit. ALLERGIES: ALLERGIES No Known Allergies PAST MEDICAL HISTORY Diagnosis Date Actinic keratosis 10/2004 BPH (benign prostatic hyperplasia) Carotid artery stenosis Chronic airway obstruction, not elsewhere classified 10/2004 Diabetes (HCC) Diverticulosis of colon (without mention of hemorrhage) Ectatic thoracic aorta (HCC) 06/07/2018 06/07/18 Chest CTA: There is atherosclerotic calcification of the thoracic aorta with mild fusiform ectasia of the descending component measuring 3.2 x 3.1 cm Impacted cerumen 10/2004 Obesity, unspecified 11/2003 Other and unspecified hyperlipidemia 10/2003 Other symptoms involving cardiovascular system 10/2004 Peripheral vascular disease, unspecified (HCC) 10/2004 R carotid Unspecified essential hypertension 04/2004 PAST SURGICAL HISTORY Procedure Laterality Date ARTL CATHJ/CANNULJ MNTR/TRANSFUSION SPX PRQ 04-17-14 COLONOSCOPY FLX DX W/COLLJ SPEC WHEN PFRMD 40 years ago Colonoscopy COLONOSCOPY FLX DX W/COLLJ SPEC WHEN PFRMD 03/02/11 DSTRJ LESION PENIS SIMPLE CHEMICAL 10/20 PAST SURGICAL HISTORY OF Skin tag removals - bilateral axillary REMOVAL IMPACTED CERUMEN INSTRUMENTATION UNILAT 10/20 TEAEC W/PATCH GRF CAROTID VERTB SUBCLAV NECK INC 04-17-14 RIGHT FAMILY HISTORY Problem Relation Age of Onset Heart Mother of CHF Stroke Maternal Grandfather Social History Tobacco Use Smoking status: Former Current packs/day: 0.00 Average packs/day: 2.0 packs/day for 10.0 years (20.0 ttl pk-yrs) Types: Cigarettes Start date: 12/05/1975 Quit date: 12/05/1985 Years since quittin.6 Smokeless tobacco: Never Vaping Use Vaping status: Never Used Substance Use Topics Alcohol use: No Comment: none now; social in past Drug use: No Reviewed current medications, allergies, past medical history, surgical history, family history andsocial history today. REVIEW OF SYSTEMS All other reviewed and negative other than HPI. HEALTH MAINTENANCE: Reviewed health maintenance issues today and recommended the following in detail. Dilated Retinal Exam-recommended. Covid-19 Vaccine(2023- season) due on 06/16/2024 Influenza Vaccine(1) due on 06/16/2024 VITALS: BP 114/62 Pulse (!) 59 Ht 177.8 cm (5' 10") Wt 109.2 kg (240 lb 12.8 oz) BMI 34.55 kg/m Last 4 Encounter Wt Readings: Date: Wt: 07/10/2024 109 kg (240 lb 6.4 oz) 07/10/2024 109 kg (240 lb 6.4 oz) 06/06/2024 110.7 kg (244 lb) 06/05/2024 110.7 kg (244 lb 0.8 oz) PHYSICAL EXAMINATION: General appearance: Well appearing, alert, in no acute distress, well-hydrated, well nourished. Skin: Skin color, texture, turgor normal, no suspicious rashes or lesions Head: Normocephalic, no masses, lesions, tenderness or abnormalities Lungs: Lungs clear to auscultation. No wheezing, rhonchi, rales Heart: RRR , loud murmur. gallop, or rubs. No ectopy Abdomen: Normal abdominal exam, Abdomen soft, non-tender. Bowel sounds normal. No masses, organomegaly Extremities: No deformities, edema, skin discoloration, clubbing or cyanosis. Good capillary refill. ASSESSMENT/PLAN: 1. Essential hypertension - ICD9: 401.9, ICD10: I10 (primary diagnosis) - good control. Continue meds. 2. Hyperlipidemia, mixed - ICD9: 272.2, ICD10: E78.2 - Controlled - Continue current medications 3. Nonrheumatic aortic valve stenosis - ICD9: 424.1, ICD10: I35.0 - ? Tavr. Not surgical candidate 4. Ectatic thoracic aorta (HCC) - ICD9: 447.71, ICD10: I77.810 - per cardiology. 5. Paroxysmal atrial fibrillation (HCC) - ICD9: 427.31, ICD10: I48.0 -stable. INR is good 6. Hypertensive kidney disease with stage 3 chronic kidney disease, unspecified whether stage 3a or3b CKD (HCC) - ICD9: 403.90, 585.3, ICD10: I12.9, N18.30 - renal function has declines. Recheck today. See if we can get into nephro sooner. Was ordered in March and not yet done. 7. Type 2 diabetes mellitus with stage 3 chronic kidney disease, without long- term current use of insulin, unspecified whether stage 3a or 3b CKD (HCC) - ICD9: 250.40, 585.3, ICD10: E11.22, N18.30 - last A1c was good. Consider stopping amaryl. Check sugars when he has a "spell". Cardiology believes related to valve or carotid, however, assess sugars as well. 8. Chronic renal disease, stage IV (HCC) - ICD9: 585.4, ICD10: N18.4 - as above. 9. 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 10. 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 Guanakito Reno MD documented in this encounterGerman Hospital09-25-2024 NoteHNO ID: [id number] Author: PAM REDDY MD Service: ? Author Type: Physician Type: Progress Notes Filed: 07/10/2024 15:17 Note Text: Pam Reddy MD Interventional Cardiology [address] [place], [place] [id number] Chief Complaint Patient presents with: Aortic Stenosis: Cal is here for TAVR evaluation. HISTORY OF PRESENT ILLNESS: Mr. Mitchell is a 79 year old male seen at the valve clinic today for assessment management of aortic stenosis patient had prior history of carotid artery disease with history of stroke required right carotid artery endarterectomy with significant blockages in the left carotid artery up to 75% chronic kidney disease with significant dementia. Patient follow-up at the [place] office 6 months ago he was completely asymptomatic clinical monitoring and waiting is the course of action at that time other history include peripheral vascular disease maintained on Coumadin for paroxysmal atrial fibrillation His dementia is so significant he is unable to take care of himself rely on his daughter on a daily day help such as taking his medication driving patient slightly dyspneic with minimal exertion multiple episodes of syncope he had at least 5 episodes last month Patient appears to have symptomatic severe aortic stenosis but he is severely limited by what appears to be an advanced dementia possibly significant blockages of his left carotid which may account for his syncopal episodes Echocardiography revealed normal left ventricular function with ejection fraction 55% normal right ventricular function severe valvular stenosis with aortic valve area of 0.67 his peak gradient of 51 and a mean gradient of 29 dimensionless index of 0.21 with stroke-volume index of 26 mL/m? Cardiac Risk Factors age (male over 45, female over 55), hyperlipidemia, hypertension, family history of CAD PAST MEDICAL HISTORY Diagnosis Date Actinic keratosis 10/20 BPH (benign prostatic hyperplasia) Chronic airway obstruction, not elsewhere classified 10/20 Diabetes (HCC) Diverticulosis of colon (without mention of hemorrhage) Ectatic thoracic aorta (HCC) 06/07/2018 06/07/18 Chest CTA: There is atherosclerotic calcification of the thoracic aorta with mild fusiform ectasia of the descending component measuring 3.2 x 3.1 cm Impacted cerumen 10/20 Obesity, unspecified 11/19 Other and unspecified hyperlipidemia 10/19 Other symptoms involving cardiovascular system 10/20 Peripheral vascular disease, unspecified (HCC) 10/20 R carotid Unspecified essential hypertension 04/18 PAST SURGICAL HISTORY Procedure Laterality Date ARTL CATHJ/CANNULJ MNTR/TRANSFUSION SPX PRQ 04-17-14 COLONOSCOPY FLX DX W/COLLJ SPEC WHEN PFRMD 40 years ago Colonoscopy COLONOSCOPY FLX DX W/COLLJ SPEC WHEN PFRMD 03/02/11 DSTRJ LESION PENIS SIMPLE CHEMICAL 10/20 PAST SURGICAL HISTORY OF Skin tag removals - bilateral axillary REMOVAL IMPACTED CERUMEN INSTRUMENTATION UNILAT 10/20 TEAEC W/PATCH GRF CAROTID VERTB SUBCLAV NECK INC 04-17-14 RIGHT FAMILY HISTORY Problem Relation Age of Onset Heart Mother of CHF Stroke Maternal Grandfather Social History Tobacco Use Smoking status: Former Current packs/day: 0.00 Average packs/day: 2.0 packs/day for 10.0 years (20.0 ttl pk-yrs) Types: Cigarettes Start date: 12/05/1975 Quit date: 12/05/1985 Years since quittin.6 Smokeless tobacco: Never Vaping Use Vaping status: Never Used Substance Use Topics Alcohol use: No Comment: none now; social in past Drug use: No ALLERGIES No Known Allergies Medications: Current Outpatient Medications Medication Sig Dispense Refill atorvastatin (LIPITOR) 80 mg tablet Take 1 tablet by mouth daily at bedtime. For cholesterol. 90 tablet 1 escitalopram oxalate (LEXAPRO) 10 mg tablet Take 1 tablet by mouth once daily. 90 tablet 3 finasteride (PROSCAR) 5 mg tablet Take 1 tablet by mouth once daily. 90 tablet 3 lisinopril (ZESTRIL) 20 mg tablet Take 1 tablet by mouth once daily. 90 tablet 3 metoprolol succinate ER (TOPROL XL) 50 mg 24 hr tablet Take 1 tablet by mouth once daily. 90 tablet 3 clopidogrel (PLAVIX) 75 mg tablet Take 1 tablet by mouth once daily. 90 tablet 1 warfarin (COUMADIN) 5 mg tablet 7.5 mg on Monday, 5 mg all other days or as directed 100 tablet 5 memantine (NAMENDA) 10 mg tablet Take 1 tablet by mouth once daily. 90 tablet 3 glimepiride (AMARYL) 2 mg tablet Take 1 tablet by mouth daily with breakfast. 90 tablet 0 nitroglycerin sublingual (NITROQUICK) 0.4 mg SL tablet Dissolve 1 tablet under the tongue as needed. for chest pain,every 5 min x3 1 Bottle of 25 3 acetaminophen (TYLENOL) 500 mg tablet Take 500 mg by mouth every 8 hours as needed. blood sugar diagnostic (ONETOUCH ULTRA TEST) test strip Test blood sugar(s) one times daily. Dx: 250.00. Insulin: No 150 Strip 3 Lancets (ONE TOUCH DELICA) [facility] lancets Test blood sugar(s) one time chichi (more content not included)...[facility]09-25-2024 History of Present illness Narrative* Pam Reddy MD - 07/10/2024 3:07 PM EDT Images from the original note were not included. Pam Reddy MD Interventional Cardiology [address] [place], [place] [id number] Chief Complaint Patient presents with: Aortic Stenosis: Cal is here for TAVR evaluation. HISTORY OF PRESENT ILLNESS: Mr. Mitchell is a 79 year old male seen at the valve clinic today for assessment management of aortic stenosis patient had prior history of carotid artery disease with history of stroke required right carotid artery endarterectomy with significant blockages in the left carotid artery up to 75% chronic kidney disease with significant dementia. Patient follow-up at the [place] office 6 months ago he was completely asymptomatic clinical monitoring and waiting is the course of action at that time other history include peripheral vascular disease maintained on Coumadin for paroxysmal atrial fibrillation His dementia is so significant he is unable to take care of himself rely on his daughter on a dailyday help such as taking his medication driving patient slightly dyspneic with minimal exertion multiple episodes of syncope he had at least 5 episodes last month Patient appears to have symptomatic severe aortic stenosis but he is severely limited by what appears to be an advanced dementia possibly significant blockages of his left carotid which may account for his syncopal episodes Echocardiography revealed normal left ventricular function with ejection fraction 55% normal right ventricular function severe valvular stenosis with aortic valve area of 0.67 his peak gradient of 51and a mean gradient of 29 dimensionless index of 0.21 with stroke-volume index of 26 mL/m Cardiac Risk Factors age (male over 45, female over 55), hyperlipidemia, hypertension, family history of CAD PAST MEDICAL HISTORY Diagnosis Date Actinic keratosis 10/20 BPH (benign prostatic hyperplasia) Chronic airway obstruction, not elsewhere classified 10/20 Diabetes (HCC) Diverticulosis of colon (without mention of hemorrhage) Ectatic thoracic aorta (HCC) 06/07/2018 06/07/18 Chest CTA: There is atherosclerotic calcification of the thoracic aorta with mild fusiform ectasia of the descending component measuring 3.2 x 3.1 cm Impacted cerumen 10/20 Obesity, unspecified 11/19 Other and unspecified hyperlipidemia 10/19 Other symptoms involving cardiovascular system 10/20 Peripheral vascular disease, unspecified (HCC) 10/20 R carotid Unspecified essential hypertension 04/18 PAST SURGICAL HISTORY Procedure Laterality Date ARTL CATHJ/CANNULJ MNTR/TRANSFUSION SPX PRQ 04-17-14 COLONOSCOPY FLX DX W/COLLJ SPEC WHEN PFRMD 40 years ago Colonoscopy COLONOSCOPY FLX DX W/COLLJ SPEC WHEN PFRMD 03/02/11 DSTRJ LESION PENIS SIMPLE CHEMICAL 10/20 PAST SURGICAL HISTORY OF Skin tag removals - bilateral axillary REMOVAL IMPACTED CERUMEN INSTRUMENTATION UNILAT 10/20 TEAEC W/PATCH GRF CAROTID VERTB SUBCLAV NECK INC 04-17-14 RIGHT FAMILY HISTORY Problem Relation Age of Onset Heart Mother of CHF Stroke Maternal Grandfather Social History Tobacco Use Smoking status: Former Current packs/day: 0.00 Average packs/day: 2.0 packs/day for 10.0 years (20.0 ttl pk-yrs) Types: Cigarettes Start date: 12/05/1975 Quit date: 12/05/1985 Years since quittin.6 Smokeless tobacco: Never Vaping Use Vaping status: Never Used Substance Use Topics Alcohol use: No Comment: none now; social in past Drug use: No ALLERGIES No Known Allergies Medications: Current Outpatient Medications Medication Sig Dispense Refill atorvastatin (LIPITOR) 80 mg tablet Take 1 tablet by mouth daily at bedtime. For cholesterol. 90 tablet 1 escitalopram oxalate (LEXAPRO) 10 mg tablet Take 1 tablet by mouth once daily. 90 tablet 3 finasteride (PROSCAR) 5 mg tablet Take 1 tablet by mouth once daily. 90 tablet 3 lisinopril (ZESTRIL) 20 mg tablet Take 1 tablet by mouth once daily. 90 tablet 3 metoprolol succinate ER (TOPROL XL) 50 mg 24 hr tablet Take 1 tablet by mouth once daily. 90 tablet3 clopidogrel (PLAVIX) 75 mg tablet Take 1 tablet by mouth once daily. 90 tablet 1 warfarin (COUMADIN) 5 mg tablet 7.5 mg on Monday, 5 mg all other days or as directed 100 tablet 5 memantine (NAMENDA) 10 mg tablet Take 1 tablet by mouth once daily. 90 tablet 3 glimepiride (AMARYL) 2 mg tablet Take 1 tablet by mouth daily with breakfast. 90 tablet 0 nitroglycerin sublingual (NITROQUICK) 0.4 mg SL tablet Dissolve 1 tablet under the tongue as needed. for chest pain,every 5 min x3 1 Bottle of 25 3 acetaminophen (TYLENOL) 500 mg tablet Take 500 mg by mouth every 8 hours as needed. blood sugar diagnostic (ONETOUCH ULTRA TEST) test strip Test blood sugar(s) one times daily. Dx: 250.00. Insulin: No 150 Strip 3 Lancets (ONE TOUCH DELICA) [facility] lancets Test blood sugar(s) one time daily. Dx: 250.00. Insulin: No1 Each 0 iv contrast (will be provided with radiology test) CTA ABD/PEL - No IV access, insert saline lock prior to the sedation, infusion, injection for imaging exam. Discontinue saline lock post exam. If Pt. has a central line or IVAD, may access for administration according to line specific nursing protocol. Once exam is complete flush line and de-access according to line specific nursing protocol in the CT contrast administration guidelines link. 1 Each 0 enoxaparin (LOVENOX) 100 mg/mL syrg Inject 1 mL subcutaneously once daily. Inject entire contents of one(1) syringe 8 Each 0 No current facility-administered medications for this visit. Review of Systems Respiratory: Positive for shortness of breath. Neurological: Positive for dizziness and loss of consciousness. Physical Examination: Vitals:BP 120/70 Pulse 94 Ht 5' 10"[Patient reports[ (1.78m) Wt 240 lb 6.4 oz (109.0kg) SpO2 94% BMI 34.49 kg/(m^2). BP w/Orthostatic Vitals Date and Time Orthostatic BP Orthostatic Pulse BP Pulse BP Position BP Site BP Cuff Size 07/10/24 0808 -- -- 120/70 94 Sitting Left Arm Extra Large Adult Last 2 Encounter Wt Readings: Date: Wt: 07/10/2024 240 lb 6.4 oz (109 kg) 07/10/2024 240 lb 6.4 oz (109 kg) Physical Exam Constitutional: General: He is not in acute distress. Appearance: He is not diaphoretic. HENT: Head: Normocephalic and atraumatic. Right Ear: External ear normal. Left Ear: External ear normal. Nose: Nose normal. Mouth/Throat: Pharynx: Oropharynx is clear. Eyes: General: Right eye: No discharge. Left eye: No discharge. Conjunctiva/sclera: Conjunctivae normal. Pupils: Pupils are equal, round, and reactive to light. Cardiovascular: Rate and Rhythm: Normal rate and regular rhythm. Heart sounds: S1 normal and S2 normal. Murmur heard. No friction rub. No gallop. No S3 or S4 sounds. Pulmonary: Effort: Pulmonary effort is normal. No respiratory distress. Breath sounds: Normal breath sounds. No wheezing or rales. Chest: Chest wall: No tenderness. Abdominal: General: Abdomen is flat. Musculoskeletal: General: Normal range of motion. Cervical back: Normal range of motion and neck supple. Skin: General: Skin is warm and dry. Neurological: Mental Status: He is alert and oriented to person, place, and time. Psychiatric: Mood and Affect: Mood normal. Thought Content: Thought content normal. Judgment: Judgment normal. Pertinent Labs: CBC: Hemoglobin (g/dL) Date Value 04/19/2024 9.5 10/06/2020 12.3 Hematocrit (%) Date Value 04/19/2024 32.3 10/06/2020 39.0 WBC (k/uL) Date Value 04/19/2024 6.14 10/06/2020 5.94 Platelet Count (k/uL) Date Value 04/19/2024 160 10/06/2020 189 BMP: Glucose (mg/dL) Date Value 04/19/2024 101 10/06/2020 121 Potassium (mmol/L) Date Value 04/19/2024 4.7 10/06/2020 3.8 Sodium (mmol/L) Date Value 04/19/2024 141 10/06/2020 138 Chloride (mmol/L) Date Value 04/19/2024 111 10/06/2020 103 CO2 (mmol/L) Date Value 04/19/2024 18 10/06/2020 25 Creatinine (mg/dL) Date Value 04/19/2024 2.35 10/06/2020 1.60 BUN (mg/dL) Date Value 04/19/2024 45 10/06/2020 26 Anion Gap (mmol/L) Date Value 04/19/2024 12 10/06/2020 10 Calcium (mg/dL) Date Value 10/06/2020 9.0 Calcium, Total (mg/dL) Date Value 04/19/2024 8.6 INR: Lipid Profile: Cholesterol, Total Date Value Ref Range Status 08/14/2023 165 <200 mg/dL Final Comment: <200 mg/dL, Desirable 200-239 mg/dL, Borderline high >239 mg/dL, High HDL Cholesterol Date Value Ref Range Status 08/14/2023 44 >39 mg/dL Final Comment: 40-59 mg/dL, Acceptable >59 mg/dL, High: Negative risk factor for coronary heart disease <40 mg/dL, Low: Positive risk factor for coronary heart disease LDL Cholesterol Date Value Ref Range Status 08/14/2023 100 (H) <100 mg/dL Final Comment: <100 mg/dL, Optimal 100-129 mg/dL, Near optimal/above optimal 130-159 mg/dL, Borderline high 160-189 mg/dL, High >189 mg/dL, Very high Secondary prevention optimal LDL Cholesterol levels are recommended to be < 70 mg/dL Triglyceride Date Value Ref Range Status 08/14/2023 106 <150 mg/dL Final Comment: <150 mg/dL, Normal 150-199 mg/dL, Borderline high 200-499 mg/dL, High >499 mg/dL, Very high Hemoglobin A1C: No results found for: "HGBA1C" TSH: No results found for: "TSHREFL" Prior Cardiac Testing EKG Assessment and Plan: 79 years old gentleman with 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 Nonrheumatic aortic valve stenosis - ICD9: 424.1, ICD10: I35.0 (primary diagnosis) Symptomatic low-flow low gradient severe aortic stenosis Patient had recurrent what seems like presyncopal or syncopal episode could be related to rhythm versus carotid artery disease versus aortic stenosis Extensive discussion guarding option of intervention chronic surgical option versus catheter-based intervention patient is not excellent candidate for surgery but he might be candidate for catheter-based prevention We need a CT of the chest and the abdomen to assess the suitability for TAVR and coronary angiography Prior to proceed with TAVR Also we need an input from vascular surgery regarding his carotid artery disease Geriatric input regarding the short and long-term prognosis in connection to his dementia - ECG B/O W INTERP (MED OFFICE) - CTA ABD/PEL W IVCON - IV CONTRAST (RADIOLOGY PROCEDURE) - CTA CHEST (GATED) WO/W IVCON - CARDIAC CORPORATE BOND TRADER ORDER - EXTENDED WEAR ARBORICULTURE TEACHER PATCH - COMPLETE BLOOD COUNT - BASIC METABOLIC PANEL - NT PRO BNP - PROTHROMBIN TIME 2. Encounter for preprocedural cardiovascular examination - ICD9: V72.81, ICD10: Z01.810 CT scan and coronary angiography - CTA ABD/PEL W IVCON - CTA CHEST (GATED) WO/W IVCON 3. Dyspnea on exertion - ICD9: 786.09, ICD10: R06.09 Secondary to aortic stenosis - NT PRO BNP 4. Dementia, unspecified dementia severity, unspecified dementia type, unspecified whether behavioral, psychotic, or mood disturbance or anxiety (HCC) - ICD9: 294.20, ICD10: F03.90 Need geriatric evaluation - CONSULT TO GERIATRICS 5. Chronic kidney disease, unspecified CKD stage - ICD9: 585.9, ICD10: N18.9 - eGFR: 27 Stable - Counseled on avoiding NSAIDs, adequate hydration - CONSULT TO NEPHROLOGY Hydration is needed prior to his cardiac catheterization 6. Anemia in chronic kidney disease, unspecified CKD stage - ICD9: 285.21, ICD10: N18.9, D63.1 - eGFR: 27 Stable - Counseled on avoiding NSAIDs, adequate hydration - CONSULT TO NEPHROLOGY 7. Stenosis of left carotid artery - ICD9: 433.10, ICD10: I65.22 Vascular surgery evaluation - CONSULT TO VASCULAR SURGERY Pam Reddy MD Follow up planning: One month Electronically signed by Pam Reddy MD on July 10, 2024, 3:07 PM The above note was partially created using a dictation recognition software. A reasonable attempt has been made to correct any errors. * Josselyn Mayer APRN.CNP - 07/10/2024 9:39 AM EDT Procedure Type: Isolated AVR Perioperative Outcome Estimate % Operative Mortality 9.12% Morbidity & Mortality 21.6% Stroke 2% Renal Failure 20.9% Reoperation 5.43% Prolonged Ventilation 9.19% Deep Sternal Wound Infection 0.103% Long Hospital Stay (>14 days) 13.4% Short Hospital Stay (<6 days)* 15.7% Josselyn Mayer APRN.CNP * Bi Cantu LPN - 07/10/2024 8:03 AM EDT CARDIAC REHAB 5 METER WALK TEST SERVICE DATE: 07/10/2024 SERVICE TIME: 8:05AM (Patient used his cane for mobile stability during his 5 Meter Walk Test.) 11.00sec 10.58sec 10.59sec ASSESSMENT: SIGNATURE: Bi Cantu LPN PATIENT NAME: Cal Mitchell DATE: July 10, 2024 TIME: 8:06 AM PAGER/CONTACT #: [phone] documented in this encounterGerman [facility]09-25-[facility]24 Nurse Note* Judy Díaz, [employer] - 07/10/2024 10:00 AM EDT Applied 14 day extended wear EKG patch. Pt verbalized understanding of monitor use / diary. [facility]09-25-[facility] Nurse Note* Judy Díaz [employer] - 07/10/2024 10:00 AM EDT Applied 14 day extended wear EKG patch. Pt verbalized understanding of monitor use / diary. documented in this encounterGerman Hospital09-25-2024 NoteHNO ID: [id number] Author: JOSSELYN MAYER APRN.CNP Service: ? Author Type: Nurse Practitioner Type: Progress Notes Filed: 07/10/2024 15:17 Note Text: Procedure Type: Isolated AVR Perioperative Outcome Estimate % Operative Mortality 9.12% Morbidity AND Mortality 21.6% Stroke 2% Renal Failure 20.9% Reoperation 5.43% Prolonged Ventilation 9.19% Deep Sternal Wound Infection 0.103% Long Hospital Stay (>14 days) 13.4% Short Hospital Stay (<6 days)* 15.7% Josselyn Mayer APRN.[facility]09-25-2024 Instructions* Patient Instructions* Josselyn Mayer APRN.CNP - 07/10/2024 8:55 AM EDT Images from the original note were not included. Today, you met with Dr. Reddy and Dr. Thacker to discuss your aortic valve stenosis. We are recommending: Blood Work 14 Day Holter Monitor Cardiac Catheterization TAVR Scans (CT Scans of chest, abdomen, and pelvis) Establish with Kidney Doctor 6. Geriatric Evaluation 7. Vascular Surgery evaluation for carotid stenosis Patient information: Aortic stenosis What is aortic stenosis? -- Aortic stenosis is a condition in which one of the valves in the heart,called the aortic valve, doesn't open fully. The heart valves keep blood flowing in only one direction. When the heart valves work normally, they open all the way to let blood flow through them. Blood flows from a chamber of the heart called the left ventricle, through the aortic valve, into alarge blood vessel called the aorta. The aorta carries blood to the rest of the body. In aortic stenosis, the aortic valve gets stuck and does not open fully. This makes the valve opening narrow. When this happens: ?Not as much blood can flow out of the heart to the rest of the body. ?The heart has to work much harder than usual to pump blood to the rest of the body. Over time, this can cause heart problems. Aortic stenosis usually happens in adults. But some people are born with aortic stenosis. What are the symptoms of aortic stenosis? -- Early on, most people have no symptoms. They usually find out they have aortic stenosis after their doctor or nurse hears a heart murmur on a routine exam. A heart murmur is an extra sound in the heartbeat that doctors or nurses hear when they listen to the heart with a stethoscope. When people do have symptoms, they can have: ?Shortness of breath ?Dizziness or fainting ?Chest pain These symptoms usually happen with physical activity. Let your provider know if you have any of these symptoms. Is there a test for aortic stenosis? -- Yes. To check for aortic stenosis and see how severe it is,your doctor might order an echocardiogram (or "echo"). This test uses sound waves to create a picture of your heart as it beats. It shows the size of the heart chambers, how well the heart is pumping, and how well the heart valves are working. If you have aortic stenosis, your doctor might repeat this test over time to see if your condition changes. To get more information about your heart, your provider might order a test called cardiac catheterization, or "cardiac cath." For this, the provider puts a thin tube into a blood vessel in your leg or arm. Then he or she moves the tube up to your heart. When the tube is in your heart or blood vessels, he or she will take measurements. The provider might also put a dye that shows up on an X- ray into the tube. It can show if any of the arteries in your heart are narrowed or blocked. This part of the test is called "coronary angiography." Your provider might order a test called an electrocardiogram (ECG or EKG). This test measures the electrical activity in your heart. Some people with aortic stenosis will also have a chest X-ray. A chest X-ray can show the size and shape of your heart. It can also show changes in your lungs from aortic stenosis or other diseases. How is aortic stenosis treated? -- Treatment depends on your symptoms and how severe your aortic stenosis is. If your aortic stenosis is mild or you have little or no symptoms, you might not need anytreatment. But your provider will follow you to see if your aortic stenosis gets worse or you startto have symptoms. If your aortic stenosis is severe or you have a lot of symptoms, you will likely need treatment. Treatment can include: ?Surgery to replace your aortic valve - During surgery, the doctor will remove your narrowed valve and replace it with a valve that opens normally. This new valve can be made from metal or from tissue from a pig, cow, or horse. In some cases, a new valve comes from another person. Your doctor will talk with you about the benefits and downsides of each option. ?A procedure to put in a new aortic valve without surgery - This is a type of procedure that doctors can do to treat people who can't have valve surgery. It can also be an option for people who are at high risk for problems if they have valve surgery. ?A procedure to open the aortic valve - For this procedure, a doctor inflates a balloon in the narrowed aortic valve to try to open it. This procedure is used in children and young adults, because itis helpful in these people. This procedure is usually not as helpful in older adults. ?Medicines - There are no medicines to treat aortic stenosis. But if you have other heart conditions besides aortic stenosis, your doctor might prescribe medicines to treat those conditions. He or she will also make sure your blood pressure and cholesterol level are under control. Can I play sports? -- If your aortic stenosis is mild or you have little or no symptoms, you can probably play sports. But if your aortic stenosis or symptoms are more serious, your doctor might recommend that you limit your physical activity. What if I want to get ? -- If you want to get , talk with your doctor or nurse. Depending on your aortic stenosis and symptoms, he or she might recommend treating your aortic stenosisbefore you get . All topics are updated as new evidence becomes available and our peer review process is complete. The content on the [employer] website is not intended nor recommended as a substitute for medical advice, diagnosis, or treatment. Always seek the advice of your own physician or other qualified healthcare professional regarding any medical questions or conditions.. 2016 [employer]. All rights reserved. Topic 96487 Version 5.0 documented in this encounterGerman Hospital09-25-2024 NoteHNO ID: [id number] Author: CAL THACKER MD Service: ? Author Type: Physician Type: Progress Notes Filed: 07/10/2024 09:32 Note Text: PRIMARY CARE PHYSICIAN: [place] [address]o [address] [place] [address] Subjective Chief Complaint Patient presents with: Aortic Stenosis: Cal is here for TAVR evaluation. HISTORY OF PRESENT ILLNESS: Mr. 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 He was seen in the office with Dr. Reddy on 03/25/24 and at that time it was suggested that he follows with us in 6 months to evaluate for symptoms and progression. He has a PMH of DMII, obesity, PVD, CVA and R CEA in 2013, and afib on coumadin. He was recently diagnosed with dementia, and he is basically unable to take care of himself and relies on his daughter for day-to-day help, such as taking his medications, driving, etc. He does get SOB with minimal exertion and he has had multiple episodes which appear syncopal in nature at home. Review of Systems Constitutional: Negative for chills, fever, malaise/fatigue and weight loss. HENT: Negative for sore throat. Eyes: Negative for blurred vision and double vision. Respiratory: Positive for shortness of breath. Negative for cough, hemoptysis, wheezing and stridor. Cardiovascular: Negative for chest pain, palpitations, leg swelling and PND. Gastrointestinal: Negative for abdominal pain, melena, nausea and vomiting. Genitourinary: Negative for flank pain and hematuria. Musculoskeletal: Negative for myalgias. Skin: Negative for rash. Neurological: Positive for dizziness and loss of consciousness. Negative for seizures and weakness. Endo/Heme/Allergies: Does not bruise/bleed easily. Objective PAST MEDICAL HISTORY Diagnosis Date Actinic keratosis 10/20 BPH (benign prostatic hyperplasia) Chronic airway obstruction, not elsewhere classified 10/20 Diabetes (HCC) Diverticulosis of colon (without mention of hemorrhage) Ectatic thoracic aorta (HCC) 06/07/2018 06/07/18 Chest CTA: There is atherosclerotic calcification of the thoracic aorta with mild fusiform ectasia of the descending component measuring 3.2 x 3.1 cm Impacted cerumen 10/20 Obesity, unspecified 11/19 Other and unspecified hyperlipidemia 10/19 Other symptoms involving cardiovascular system 10/20 Peripheral vascular disease, unspecified (HCC) 10/20 R carotid Unspecified essential hypertension 04/18 PAST SURGICAL HISTORY Procedure Laterality Date ARTL CATHJ/CANNULJ MNTR/TRANSFUSION SPX PRQ 04-17-14 COLONOSCOPY FLX DX W/COLLJ SPEC WHEN PFRMD 40 years ago Colonoscopy COLONOSCOPY FLX DX W/COLLJ SPEC WHEN PFRMD 03/02/11 DSTRJ LESION PENIS SIMPLE CHEMICAL 10/20 PAST SURGICAL HISTORY OF Skin tag removals - bilateral axillary REMOVAL IMPACTED CERUMEN INSTRUMENTATION UNILAT 10/20 TEAEC W/PATCH GRF CAROTID VERTB SUBCLAV NECK INC 04-17-14 RIGHT FAMILY HISTORY Problem Relation Age of Onset Heart Mother of CHF Stroke Maternal Grandfather Social History Tobacco Use Smoking status: Former Current packs/day: 0.00 Average packs/day: 2.0 packs/day for 10.0 years (20.0 ttl pk-yrs) Types: Cigarettes Start date: 12/05/1975 Quit date: 12/05/1985 Years since quittin.6 Smokeless tobacco: Never Vaping Use Vaping status: Never Used Substance Use Topics Alcohol use: No Comment: none now; social in past Drug use: No ALLERGIES No Known Allergies Physical Examination Vitals:BP 120/70 Pulse 94 Ht 5' 10"[Patient reports[ (1.78m) Wt 240 lb 6.4 oz (109.0kg) SpO2 94% BMI 34.49 kg/(m2). BP w/Orthostatic Vitals Date and Time Orthostatic BP Orthostatic Pulse BP Pulse BP Position BP Site BP Cuff Size 07/10/24 0811 -- -- 120/70 94 Sitting Left Arm Extra Large Adult Last 2 Encounter Wt Readings: Date: Wt: 07/10/2024 240 lb 6.4 oz (109 kg) 07/10/2024 240 lb 6.4 oz (109 kg) Physical Exam HENT: Head: Normocephalic and atraumatic. Eyes: Pupils: Pupils are equal, round, and reactive to light. Neck: Thyroid: No thyromegaly. Trachea: No tracheal deviation. Cardiovascular: Rate and Rhythm: Normal rate and regular rhythm. Heart sounds: Murmur heard. Comments: Systolic murmur with faint S2 Pulmonary: Effort: Pulmonary effort is normal. No accessory muscle usage or respiratory distress. Breath sounds: Normal breath sounds. Abdominal: General: There is no distension. Palpations: Abdomen is soft. Tenderness: There is no abdominal tenderness. Musculoskeletal: General: No deformity. Normal range of motion. Cervical back: Normal range of motion and neck supple. Right lower leg: No edema. Left lower leg: No edema. Skin: General: Skin is warm and dry. Neurological: Mental Status: He is alert and oriented to person, place, and time. Cranial Nerves: No cranial nerve deficit. Medications Current Out (more content not included)...[facility]09-25-2024 History of Present illness Narrative* Cal Thacker MD - 07/10/2024 8:37 AM EDT PRIMARY CARE PHYSICIAN: Guanakito Reno [address] [place] [address] Subjective Chief Complaint Patient presents with: Aortic Stenosis: Cal is here for TAVR evaluation. HISTORY OF PRESENT ILLNESS: Mr. 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 He was seen in the office with Dr. Reddy on 03/25/24 and at that timeit was suggested that he follows with us in 6 months to evaluate for symptoms and progression. He has a PMH of DMII, obesity, PVD, CVA and R CEA in 2013, and afib on coumadin. He was recently diagnosed with dementia, and he is basically unable to take care of himself and relies on his daughter for day-to-day help, such as taking his medications, driving, etc. He does get SOB with minimal exertionand he has had multiple episodes which appear syncopal in nature at home. Review of Systems Constitutional: Negative for chills, fever, malaise/fatigue and weight loss. HENT: Negative for sore throat. Eyes: Negative for blurred vision and double vision. Respiratory: Positive for shortness of breath. Negative for cough, hemoptysis, wheezing and stridor. Cardiovascular: Negative for chest pain, palpitations, leg swelling and PND. Gastrointestinal: Negative for abdominal pain, melena, nausea and vomiting. Genitourinary: Negative for flank pain and hematuria. Musculoskeletal: Negative for myalgias. Skin: Negative for rash. Neurological: Positive for dizziness and loss of consciousness. Negative for seizures and weakness. Endo/Heme/Allergies: Does not bruise/bleed easily. Objective PAST MEDICAL HISTORY Diagnosis Date Actinic keratosis 10/20 BPH (benign prostatic hyperplasia) Chronic airway obstruction, not elsewhere classified 10/20 Diabetes (HCC) Diverticulosis of colon (without mention of hemorrhage) Ectatic thoracic aorta (HCC) 06/07/2018 06/07/18 Chest CTA: There is atherosclerotic calcification of the thoracic aorta with mild fusiform ectasia of the descending component measuring 3.2 x 3.1 cm Impacted cerumen 10/20 Obesity, unspecified 11/19 Other and unspecified hyperlipidemia 10/19 Other symptoms involving cardiovascular system 10/20 Peripheral vascular disease, unspecified (HCC) 10/20 R carotid Unspecified essential hypertension 04/18 PAST SURGICAL HISTORY Procedure Laterality Date ARTL CATHJ/CANNULJ MNTR/TRANSFUSION SPX PRQ 04-17-14 COLONOSCOPY FLX DX W/COLLJ SPEC WHEN PFRMD 40 years ago Colonoscopy COLONOSCOPY FLX DX W/COLLJ SPEC WHEN PFRMD 03/02/11 DSTRJ LESION PENIS SIMPLE CHEMICAL 10/20 PAST SURGICAL HISTORY OF Skin tag removals - bilateral axillary REMOVAL IMPACTED CERUMEN INSTRUMENTATION UNILAT 10/20 TEAEC W/PATCH GRF CAROTID VERTB SUBCLAV NECK INC 04-17-14 RIGHT FAMILY HISTORY Problem Relation Age of Onset Heart Mother of CHF Stroke Maternal Grandfather Social History Tobacco Use Smoking status: Former Current packs/day: 0.00 Average packs/day: 2.0 packs/day for 10.0 years (20.0 ttl pk-yrs) Types: Cigarettes Start date: 12/05/1975 Quit date: 12/05/1985 Years since quittin.6 Smokeless tobacco: Never Vaping Use Vaping status: Never Used Substance Use Topics Alcohol use: No Comment: none now; social in past Drug use: No ALLERGIES No Known Allergies Physical Examination Vitals:BP 120/70 Pulse 94 Ht 5' 10"[Patient reports[ (1.78m) Wt 240 lb 6.4 oz (109.0kg) SpO2 94% BMI 34.49 kg/(m^2). BP w/Orthostatic Vitals Date and Time Orthostatic BP Orthostatic Pulse BP Pulse BP Position BP Site BP Cuff Size 07/10/24 0811 -- -- 120/70 94 Sitting Left Arm Extra Large Adult Last 2 Encounter Wt Readings: Date: Wt: 07/10/2024 240 lb 6.4 oz (109 kg) 07/10/2024 240 lb 6.4 oz (109 kg) Physical Exam HENT: Head: Normocephalic and atraumatic. Eyes: Pupils: Pupils are equal, round, and reactive to light. Neck: Thyroid: No thyromegaly. Trachea: No tracheal deviation. Cardiovascular: Rate and Rhythm: Normal rate and regular rhythm. Heart sounds: Murmur heard. Comments: Systolic murmur with faint S2 Pulmonary: Effort: Pulmonary effort is normal. No accessory muscle usage or respiratory distress. Breath sounds: Normal breath sounds. Abdominal: General: There is no distension. Palpations: Abdomen is soft. Tenderness: There is no abdominal tenderness. Musculoskeletal: General: No deformity. Normal range of motion. Cervical back: Normal range of motion and neck supple. Right lower leg: No edema. Left lower leg: No edema. Skin: General: Skin is warm and dry. Neurological: Mental Status: He is alert and oriented to person, place, and time. Cranial Nerves: No cranial nerve deficit. Medications Current Outpatient Medications Medication Sig Dispense Refill atorvastatin (LIPITOR) 80 mg tablet Take 1 tablet by mouth daily at bedtime. For cholesterol. 90 tablet 1 escitalopram oxalate (LEXAPRO) 10 mg tablet Take 1 tablet by mouth once daily. 90 tablet 3 finasteride (PROSCAR) 5 mg tablet Take 1 tablet by mouth once daily. 90 tablet 3 lisinopril (ZESTRIL) 20 mg tablet Take 1 tablet by mouth once daily. 90 tablet 3 metoprolol succinate ER (TOPROL XL) 50 mg 24 hr tablet Take 1 tablet by mouth once daily. 90 tablet3 clopidogrel (PLAVIX) 75 mg tablet Take 1 tablet by mouth once daily. 90 tablet 1 warfarin (COUMADIN) 5 mg tablet 7.5 mg on Monday, 5 mg all other days or as directed 100 tablet 5 memantine (NAMENDA) 10 mg tablet Take 1 tablet by mouth once daily. 90 tablet 3 glimepiride (AMARYL) 2 mg tablet Take 1 tablet by mouth daily with breakfast. 90 tablet 0 nitroglycerin sublingual (NITROQUICK) 0.4 mg SL tablet Dissolve 1 tablet under the tongue as needed. for chest pain,every 5 min x3 1 Bottle of 25 3 acetaminophen (TYLENOL) 500 mg tablet Take 500 mg by mouth every 8 hours as needed. blood sugar diagnostic (BrandYourselfTOUCH ULTRA TEST) test strip Test blood sugar(s) one times daily. Dx: 250.00. Insulin: No 150 Strip 3 Lancets (ONE TOUCH DELICA) Misc lancets Test blood sugar(s) one time daily. Dx: 250.00. Insulin: No1 Each 0 No current facility-administered medications for this visit. TTE 05/02/24: CONCLUSIONS: - Technically difficult exam due to body habitus. - Exam indication: Routine surveillance of moderate or severe valvular stenosis (>1yr) - The left ventricle is normal in size. Left ventricular systolic function is normal. EF = 55 5% (2D 4-ch.) Indeterminate left ventricular diastolic dysfunction. - The right ventricle is normal in size. Right ventricular systolic function is normal. - Tricuspid aortic valve. There is severe aortic valve stenosis. AV area is 0.67 cm (0.29 cm /m ) by continuity, VTI. The peak gradient is 51 mmHg, the mean gradient is 29 mmHg and the dimensionless valve index is 0.21. Prior pk/mn gradients were 42/22 mmHg. - Definity unavailable. - Exam was compared with the prior CC echocardiographic exam performed on 08/25/2022, no significant change. Bilateral carotid artery ultrasounds 05/02/24: IMPRESSION Compared to prior study of 10/04/2022, No change in degree of stenosis. Left ICA/CCA ratio previously 4.8. RIGHT SIDE Common carotid artery: Plaque visualized without evidence of hemodynamically significant stenosis. Endarterectomy patch at distal : 1.07 cm. Internal carotid artery: 20-39% stenosis. Endarterectomy patch from origin to proximal . Vertebral artery: Patent and antegrade flow noted. Innominate artery: Turbulent flow and elevated velocities noted, cannot rule out more proximal stenosis. May wish other means of evaluation. Subclavian artery: Plaque visualized without evidence of hemodynamically significant stenosis. LEFT SIDE Common carotid artery: Plaque visualized without evidence of hemodynamically significant stenosis. Assessment and Plan: Mr. 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 He was seen in the office with Dr. Reddy on 03/25/24 and at that timeit was suggested that he follows with us in 6 months to evaluate for symptoms and progression. He has a PMH of DMII, obesity, PVD, CVA and R CEA in 2013, and afib on coumadin. He was recently diagnosed with dementia, and he is basically unable to take care of himself and relies on his daughter for day-to-day help, such as taking his medications, driving, etc. He does get SOB with minimal exertionand he has had multiple episodes which appear syncopal in nature at home. The patient appears to have symptomatic severe aortic stenosis, however he is severely limited by what appears to be advanced dementia and he also has significant left carotid stenosis. We believe weshould continue workup with L/RHC and TAVR scans in preparation for TAVR. We will also refer to vascular surgery and a account development representative for further evaluation. Family will discuss how aggressive they would like to be with potential valve replacement as well. Cal Thacker MD Cardiothoracic Surgery 07/10/2024 * Bi Cantu LPN - 07/10/2024 8:11 AM EDT CARDIAC REHAB 5 METER WALK TEST SERVICE DATE: 07/10/2024 SERVICE TIME: 8:05AM (Patient used his cane for mobile stability during his 5 Meter Walk Test.) 11.00sec 10.58sec 10.59sec ASSESSMENT: SIGNATURE: Bi Cantu LPN PATIENT NAME: Cal Mitchell DATE: July 10, 2024 TIME: 8:13 AM PAGER/CONTACT #: [phone] documented in this encounterGerman Hospital09-25-2024 NoteHNO ID: [id number] Author: BI CANTU LPN Service: ? Author Type: LICENSED NURSE Type: Progress Notes Filed: 07/10/2024 09:32 Note Text: CARDIAC REHAB 5 METER WALK TEST SERVICE DATE: 07/10/2024 SERVICE TIME: 8:05AM (Patient used his cane for mobile stability during his 5 Meter Walk Test.) 11.00sec 10.58sec 10.59sec ASSESSMENT: SIGNATURE: Bi Cantu LPN PATIENT NAME: Cal Mitchell DATE: July 10, 2024 TIME: 8:13 AM PAGER/CONTACT #: [phone] [facility]09-[facility] Note HNO ID: [id number] Author: BI CANTU LPN Service: ? Author Type: LICENSED NURSE Type: Progress Notes Filed: 07/10/2024 15:17 Note Text: CARDIAC REHAB 5 METER WALK TEST SERVICE DATE: 07/10/2024 SERVICE TIME: 8:05AM (Patient used his cane for mobile stability during his 5 Meter Walk Test.) 11.00sec 10.58sec 10.59sec ASSESSMENT: SIGNATURE: Bi Cantu LPN PATIENT NAME: Cal Mitchell DATE: July 10, 2024 TIME: 8:06 AM PAGER/CONTACT #: [phone] Light C.[facility]. [facility]09-20-2024 Telephone encounter Note* Telephone Encounter - Annamarie Garcia RPh - 07/05/2024 9:43 AM EDT [facility] Anticoagulation Episode Summary Anticoagulation Care Providers Provider Role Specialty Phone number Guanakito Reno MD [facility] Medicine [phone] Cal Mitchell is a 79 year old year old male patient being evaluated today for a Telemanagementvisit. Patient is currently on the following anticoagulant(s) Warfarin. Labs PT INR (no units) Date Value 09/28/2022 1.9 (self reporting) 01/24/2022 2.1 biotel 10/26/2021 2.1 (Biotel) INR Home CoaguChek (no units) Date Value 07/04/2024 2.2 06/15/2024 3.2 05/16/2024 2.8 Hemoglobin (g/dL) Date Value 04/19/2024 9.5 10/06/2020 12.3 Hematocrit (%) Date Value 04/19/2024 32.3 10/06/2020 39.0 Platelet Count (k/uL) Date Value 04/19/2024 160 10/06/2020 189 Creatinine (mg/dL) Date Value 04/19/2024 2.35 04/04/2024 2.61 03/25/2024 2.48 10/06/2020 1.60 07/18/2019 1.46 03/18/2019 1.51 Bilirubin, Total (mg/dL) Date Value 03/25/2024 0.3 10/06/2020 0.4 ALT (U/L) Date Value 03/25/2024 15 10/06/2020 16 AST (U/L) Date Value 03/25/2024 19 10/06/2020 17 Estimated Creatinine Clearance: 30.2 mL/min (A) (based on SCr of 2.35 mg/dL (H)). 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 [facility]09-20-2024 Miscellaneous Notes* Telephone Encounter - Annamarie Garcia RPh - 07/05/2024 9:43 AM EDT [facility] Anticoagulation Episode Summary Anticoagulation Care Providers Provider Role Specialty Phone number Guanakito Reno MD [facility] [phone] Cal Mitchell is a 79 year old year old male patient being evaluated today for a Telemanagementvisit. Patient is currently on the following anticoagulant(s) Warfarin. Labs PT INR (no units) Date Value 09/28/2022 1.9 (self reporting) 01/24/2022 2.1 biotel 10/26/2021 2.1 (Biotel) INR Home CoaguChek (no units) Date Value 07/04/2024 2.2 06/15/2024 3.2 05/16/2024 2.8 Hemoglobin (g/dL) Date Value 04/19/2024 9.5 10/06/2020 12.3 Hematocrit (%) Date Value 04/19/2024 32.3 10/06/2020 39.0 Platelet Count (k/uL) Date Value 04/19/2024 160 10/06/2020 189 Creatinine (mg/dL) Date Value 04/19/2024 2.35 04/04/2024 2.61 03/25/2024 2.48 10/06/2020 1.60 07/18/2019 1.46 03/18/2019 1.51 Bilirubin, Total (mg/dL) Date Value 03/25/2024 0.3 10/06/2020 0.4 ALT (U/L) Date Value 03/25/2024 15 10/06/2020 16 AST (U/L) Date Value 03/25/2024 19 10/06/2020 17 Estimated Creatinine Clearance: 30.2 mL/min (A) (based on SCr of 2.35 mg/dL (H)). 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: [facility] (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 Paroxysmal atrial fibrillation (hcc) Anticoagulation Episode Summary Current INR goal: 2.0-3.0 Assessment: INR result of 2.2 is therapeutic Plan: Current Warfarin Dosing As of 07/05/2024 Full warfarin instructions: 5 mg every day Left voice message And sent [email or web address] message Advised patient to continue current weekly dose as noted above Next home INR check scheduled on 07/18/2024 Annamarie Garcia [facility] Clinical Pharmacist, Pharmacy Anticoagulation Clinic Pharmacy Anticoagulation Clinic Pager: [phone]. documented in this encounterGerman Hospital09-03-2024 Telephone encounter Note * Telephone Encounter - Jimmy Carrizales [facility] - 06/18/2024 8:39 AM EDT [facility] Anticoagulation Episode Summary Anticoagulation Care Providers Provider Role Specialty Phone number Guanakito Reno MD [facility] [phone] Cal Mitchell is a 78 year old year old male patient being evaluated today for a Telemanagementvisit. Patient is currently on the following anticoagulant(s) Warfarin. Labs PT INR (no units) Date Value 09/28/2022 1.9 (self reporting) 01/24/2022 2.1 biotel 10/26/2021 2.1 (Biotel) INR Home CoaguChek (no units) Date Value 06/15/2024 3.2 05/16/2024 2.8 04/23/2024 2.7 Hemoglobin (g/dL) Date Value 04/19/2024 9.5 10/06/2020 12.3 Hematocrit (%) Date Value 04/19/2024 32.3 10/06/2020 39.0 Platelet Count (k/uL) Date Value 04/19/2024 160 10/06/2020 189 Creatinine (mg/dL) Date Value 04/19/2024 2.35 04/04/2024 2.61 03/25/2024 2.48 10/06/2020 1.60 07/18/2019 1.46 03/18/2019 1.51 Bilirubin, Total (mg/dL) Date Value 03/25/2024 0.3 10/06/2020 0.4 ALT (U/L) Date Value 03/25/2024 15 10/06/2020 16 AST (U/L) Date Value 03/25/2024 19 10/06/2020 17 Estimated Creatinine Clearance: 30.7 mL/min (A) (based on SCr of 2.35 mg/dL (H)). 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 [facility]09-03-[facility] Miscellaneous Notes* Telephone Encounter - Jimmy Carrizales RPh - 06/18/2024 8:39 AM EDT [facility] Anticoagulation Episode Summary Anticoagulation Care Providers Provider Role Specialty Phone number Guanakito Reno MD [facility] [phone] Cal Mitchell is a 78 year old year old male patient being evaluated today for a Telemanagementvisit. Patient is currently on the following anticoagulant(s) Warfarin. Labs PT INR (no units) Date Value 09/28/2022 1.9 (self reporting) 01/24/2022 2.1 biotel 10/26/2021 2.1 (Biotel) INR Home CoaguChek (no units) Date Value 06/15/2024 3.2 05/16/2024 2.8 04/23/2024 2.7 Hemoglobin (g/dL) Date Value 04/19/2024 9.5 10/06/2020 12.3 Hematocrit (%) Date Value 04/19/2024 32.3 10/06/2020 39.0 Platelet Count (k/uL) Date Value 04/19/2024 160 10/06/2020 189 Creatinine (mg/dL) Date Value 04/19/2024 2.35 04/04/2024 2.61 03/25/2024 2.48 10/06/2020 1.60 07/18/2019 1.46 03/18/2019 1.51 Bilirubin, Total (mg/dL) Date Value 03/25/2024 0.3 10/06/2020 0.4 ALT (U/L) Date Value 03/25/2024 15 10/06/2020 16 AST (U/L) Date Value 03/25/2024 19 10/06/2020 17 Estimated Creatinine Clearance: 30.7 mL/min (A) (based on SCr of 2.35 mg/dL (H)). 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: [facility] (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 Paroxysmal atrial fibrillation (hcc) Anticoagulation Episode Summary Current INR goal: 2.0-3.0 Assessment: INR result of 3.2 is SUPRAtherapeutic due to: unknown cause - did not speak to patient Plan: Current Warfarin Dosing As of 06/18/2024 Full warfarin instructions: 06/18: 2.5 mg; Otherwise 5 mg every day Left voice message Advised patient to decrease dose for 1 day only then resume weekly regimen Next home INR check scheduled on 07/02/2024 Jimmy Carrizales RPh Clinical Pharmacist, Pharmacy Anticoagulation Clinic Pharmacy Anticoagulation Clinic Pager: [phone]. documented in this encounterGerman Hospital08-22-2024 Instructions* Patient Instructions* Carolina Landeros APRN.CNP - 06/06/2024 12:10 PM EDT 1) Stop Actos 2) Stop melatonin 3) Try to increase protein 4) Follow up in 1 months documented in this encounterGerman Hospital08-22-2024 NoteHNO ID: [id number] Author: CAROLINA LANDEROS APRN.CNP Service: ? Author Type: Clinical Nurse Specialist Type: Progress Notes Filed: 06/06/2024 12:14 Note Text: This is a 78 year old male who presents today with: Patient presents with: Edema: Leg swelling. HCTZ stopped in March Hypertension: Follow up HISTORY OF PRESENT ILLNESS: Cal Mitchell is a 78 year old male. Patient presents with: Edema: Leg swelling. HCTZ stopped in March Hypertension: Follow up DM: Reports overall feeling well. Medication side effects: No. Home sugar checks: Yes. Daughter checks and said they are ok. Hypoglycemic spells: Maybe. Watching diet: No. Unexpected weight loss: Yes. Appetite is decreasing Polyuria, polydipsia: Yes. Incontinent Vision Changes: Unknown. Foot lesions or numbness or pain: No. Since stopping HCTZ, some swelling in legs. Falls. Unsteady gait. Steady weight loss. PAST MEDICAL HISTORY: PAST MEDICAL HISTORY 10/20: Actinic keratosis No date: BPH (benign prostatic hyperplasia) 10/20: Chronic airway obstruction, not elsewhere classified No date: Diabetes (HCC) No date: Diverticulosis of colon (without mention of hemorrhage) 06/07/2018: Ectatic thoracic aorta (HCC) Comment: 06/07/18 Chest CTA: There is atherosclerotic calcification of the thoracic aorta with mild fusiform ectasia of the descending component measuring 3.2 x 3.1 cm 10/20: Impacted cerumen 11/19: Obesity, unspecified 10/19: Other and unspecified hyperlipidemia 10/20: Other symptoms involving cardiovascular system 10/20: Peripheral vascular disease, unspecified (HCC) Comment: R carotid 04/18: Unspecified essential hypertension PAST SURGICAL HISTORY 04-17-14: ARTL CATHJ/CANNULJ MNTR/TRANSFUSION SPX PRQ 40 years ago: COLONOSCOPY FLX DX W/COLLJ SPEC WHEN PFRMD Comment: Colonoscopy 03/02/11: COLONOSCOPY FLX DX W/COLLJ SPEC WHEN PFRMD 10/20: DSTRJ LESION PENIS SIMPLE CHEMICAL No date: PAST SURGICAL HISTORY OF Comment: Skin tag removals - bilateral axillary 10/20: REMOVAL IMPACTED CERUMEN INSTRUMENTATION UNILAT 04-17-14: TEAEC W/PATCH GRF CAROTID VERTB SUBCLAV NECK INC Comment: RIGHT ALLERGIES Patient has no known allergies. MEDICATIONS Current Outpatient Medications Medication Sig atorvastatin (LIPITOR) 80 mg tablet Take 1 tablet by mouth daily at bedtime. For cholesterol. escitalopram oxalate (LEXAPRO) 10 mg tablet Take 1 tablet by mouth once daily. finasteride (PROSCAR) 5 mg tablet Take 1 tablet by mouth once daily. lisinopril (ZESTRIL) 20 mg tablet Take 1 tablet by mouth once daily. metoprolol succinate ER (TOPROL XL) 50 mg 24 hr tablet Take 1 tablet by mouth once daily. clopidogrel (PLAVIX) 75 mg tablet Take 1 tablet by mouth once daily. pioglitazone (ACTOS) 30 mg tablet Take 1 tablet by mouth once daily. melatonin 3 mg tablet Take 1 tablet by mouth daily at bedtime. warfarin (COUMADIN) 5 mg tablet 7.5 mg on Monday, 5 mg all other days or as directed memantine (NAMENDA) 10 mg tablet Take 1 tablet by mouth once daily. glimepiride (AMARYL) 2 mg tablet Take 1 tablet by mouth daily with breakfast. nitroglycerin sublingual (NITROQUICK) 0.4 mg SL tablet Dissolve 1 tablet under the tongue as needed. for chest pain,every 5 min x3 acetaminophen (TYLENOL) 500 mg tablet Take 500 mg by mouth every 8 hours as needed. blood sugar diagnostic (BrandYourselfTOUCH ULTRA TEST) test strip Test blood sugar(s) one times daily. Dx: 250.00. Insulin: No Lancets (ONE TOUCH DELICA) [facility] lancets Test blood sugar(s) one time daily. Dx: 250.00. Insulin: No No current facility-administered medications for this visit. FAMILY HISTORY Problem Relation Age of Onset Heart Mother of CHF Stroke Maternal Grandfather Social History Tobacco Use Smoking status: Former Current packs/day: 0.00 Average packs/day: 2.0 packs/day for 10.0 years (20.0 ttl pk-yrs) Types: Cigarettes Start date: 12/05/1975 Quit date: 12/05/1985 Years since quittin.5 Smokeless tobacco: Never Vaping Use Vaping status: Never Used Substance Use Topics Alcohol use: No Comment: none now; social in past Drug use: No EXAM: BP 144/68 Pulse 71 Resp 18 Wt 110.7 kg (244 lb) SpO2 99% BMI 36.03 kg/m? 126/56 sitting, 130/56 standing PHYSICAL EXAM: Physical Exam Vitals reviewed. Constitutional: Appearance: Normal appearance. He is obese. HENT: Head: Normocephalic. Neck: Vascular: Carotid bruit present. Comments: Gray. Carotid murmur likely deferred from aortic stenosis Cardiovascular: Rate and Rhythm: Normal rate and regular rhythm. Heart sounds: Murmur heard. Pulmonary: Effort: Pulmonary effort is normal. Breath sounds: Normal breath sounds. Abdominal: General: Bowel sounds are normal. Palpations: Abdomen is soft. Comments: Rounded, non-tender Musculoskeletal: Comments: Generalized weakness, walks w/ a quad cane Lymphadenopathy: Cervical: No cervical adenopathy. Skin: General: Sk (more content not included)...[facility]08-22-2024 History of Present illness Narrative* Carolina Landeros APRN.PITCH WORKER - 06/06/2024 11:39 AM EDT This is a 78 year old male who presents today with: Patient presents with: Edema: Leg swelling. HCTZ stopped in March Hypertension: Follow up HISTORY OF PRESENT ILLNESS: Cal Mitchell is a 78 year old male. Patient presents with: Edema: Leg swelling. HCTZ stopped in March Hypertension: Follow up DM: Reports overall feeling well. Medication side effects: No. Home sugar checks: Yes. Daughter checks and said they are ok. Hypoglycemic spells: Maybe. Watching diet: No. Unexpected weight loss: Yes. Appetite is decreasing Polyuria, polydipsia: Yes. Incontinent Vision Changes: Unknown. Foot lesions or numbness or pain: No. Since stopping HCTZ, some swelling in legs. Falls. Unsteady gait. Steady weight loss. PAST MEDICAL HISTORY: PAST MEDICAL HISTORY 10/20: Actinic keratosis No date: BPH (benign prostatic hyperplasia) 10/20: Chronic airway obstruction, not elsewhere classified No date: Diabetes (HCC) No date: Diverticulosis of colon (without mention of hemorrhage) 06/07/2018: Ectatic thoracic aorta (HCC) Comment: 06/07/18 Chest CTA: There is atherosclerotic calcification of the thoracic aorta with mild fusiform ectasia of the descending component measuring 3.2 x 3.1 cm 10/20: Impacted cerumen 11/19: Obesity, unspecified 10/19: Other and unspecified hyperlipidemia 10/20: Other symptoms involving cardiovascular system 10/20: Peripheral vascular disease, unspecified (HCC) Comment: R carotid 04/18: Unspecified essential hypertension PAST SURGICAL HISTORY 04-17-14: ARTL CATHJ/CANNULJ MNTR/TRANSFUSION SPX PRQ 40 years ago: COLONOSCOPY FLX DX W/COLLJ SPEC WHEN PFRMD Comment: Colonoscopy 03/02/11: COLONOSCOPY FLX DX W/COLLJ SPEC WHEN PFRMD 10/20: DSTRJ LESION PENIS SIMPLE CHEMICAL No date: PAST SURGICAL HISTORY OF Comment: Skin tag removals - bilateral axillary 10/20: REMOVAL IMPACTED CERUMEN INSTRUMENTATION UNILAT 7-3-14: TEAEC W/PATCH GRF CAROTID VERTB SUBCLAV NECK INC Comment: RIGHT ALLERGIES Patient has no known allergies. MEDICATIONS Current Outpatient Medications Medication Sig atorvastatin (LIPITOR) 80 mg tablet Take 1 tablet by mouth daily at bedtime. For cholesterol. escitalopram oxalate (LEXAPRO) 10 mg tablet Take 1 tablet by mouth once daily. finasteride (PROSCAR) 5 mg tablet Take 1 tablet by mouth once daily. lisinopril (ZESTRIL) 20 mg tablet Take 1 tablet by mouth once daily. metoprolol succinate ER (TOPROL XL) 50 mg 24 hr tablet Take 1 tablet by mouth once daily. clopidogrel (PLAVIX) 75 mg tablet Take 1 tablet by mouth once daily. pioglitazone (ACTOS) 30 mg tablet Take 1 tablet by mouth once daily. melatonin 3 mg tablet Take 1 tablet by mouth daily at bedtime. warfarin (COUMADIN) 5 mg tablet 7.5 mg on Monday, 5 mg all other days or as directed memantine (NAMENDA) 10 mg tablet Take 1 tablet by mouth once daily. glimepiride (AMARYL) 2 mg tablet Take 1 tablet by mouth daily with breakfast. nitroglycerin sublingual (NITROQUICK) 0.4 mg SL tablet Dissolve 1 tablet under the tongue as needed. for chest pain,every 5 min x3 acetaminophen (TYLENOL) 500 mg tablet Take 500 mg by mouth every 8 hours as needed. blood sugar diagnostic (ONETOUCH ULTRA TEST) test strip Test blood sugar(s) one times daily. Dx: 250.00. Insulin: No Lancets (ONE TOUCH DELICA) [facility] lancets Test blood sugar(s) one time daily. Dx: 250.00. Insulin: No No current facility-administered medications for this visit. FAMILY HISTORY Problem Relation Age of Onset Heart Mother of CHF Stroke Maternal Grandfather Social History Tobacco Use Smoking status: Former Current packs/day: 0.00 Average packs/day: 2.0 packs/day for 10.0 years (20.0 ttl pk-yrs) Types: Cigarettes Start date: 12/05/1975 Quit date: 12/05/1985 Years since quittin.5 Smokeless tobacco: Never Vaping Use Vaping status: Never Used Substance Use Topics Alcohol use: No Comment: none now; social in past Drug use: No EXAM: BP 144/68 Pulse 71 Resp 18 Wt 110.7 kg (244 lb) SpO2 99% BMI 36.03 kg/m 126/56 sitting, 130/56 standing PHYSICAL EXAM: Physical Exam Vitals reviewed. Constitutional: Appearance: Normal appearance. He is obese. HENT: Head: Normocephalic. Neck: Vascular: Carotid bruit present. Comments: Gray. Carotid murmur likely deferred from aortic stenosis Cardiovascular: Rate and Rhythm: Normal rate and regular rhythm. Heart sounds: Murmur heard. Pulmonary: Effort: Pulmonary effort is normal. Breath sounds: Normal breath sounds. Abdominal: General: Bowel sounds are normal. Palpations: Abdomen is soft. Comments: Rounded, non-tender Musculoskeletal: Comments: Generalized weakness, walks w/ a quad cane Lymphadenopathy: Cervical: No cervical adenopathy. Skin: General: Skin is warm and dry. Neurological: Mental Status: He is alert. Comments: Significant dementia Psychiatric: Comments: Significant dementia LABS: fit test explained ASSESSMENT/PLAN: 1. Aortic valve stenosis, etiology of cardiac valve disease unspecified - ICD9: 424.1, ICD10: I35.0(primary diagnosis) Ongoing 2. Hypertensive kidney disease with stage 3b chronic kidney disease (HCC) - ICD9: 403.90, 585.3, ICD10: I12.9, N18.32 - Controlled - Recommend home blood pressure monitoring, to bring results to next visit - Encouraged sodium restriction, DASH or Mediterranean diet - Recommend regular aerobic exercise - eGFR: 27 Stable - Stage IV 3. Paroxysmal atrial fibrillation (HCC) - ICD9: 427.31, ICD10: I48.0 Anticoagulated 4. Benign prostatic hyperplasia without lower urinary tract symptoms - ICD9: 600.00, ICD10: N40.0 Stable 5. Anemia, unspecified type - ICD9: 285.9, ICD10: D64.9 Likely from CKD but microcytic- - Educated on FIT test Discussed treatment plan and patient voices understanding. Patient's questions answered appropriately. Medications and potential side effects were discussed and patient voices understanding. Return to the office as scheduled or as needed for worsening/no improvement. Carolina Landeros APRN.KOURTNEY documented [facility] Telephone encounter Note * Telephone Encounter - Josselyn Barrow LPN - 06/05/2024 4:53 PM EDT Attempted to reach daughter and her is already here with patient. [facility]08-21-2024 Miscellaneous Notes* Telephone Encounter - Josselyn Barrow LPN - 06/05/2024 4:53 PM EDT Attempted to reach daughter and her is already here with patient. * Telephone Encounter - Corrina Lennon APRN.CNP - 06/05/2024 4:46 PM EDT I am doubtful that express care will address any changes that will need made to his diuretics. If he needs an evening appointment, [facility] has some openings tomorrow evening. Unfortunately, to be seen sooner with urology, he may need to travel out of town. If they are willing to do that, let us know and we can see if we can get him scheduled. Corrina Lennon APRN.KOURTNEY * Telephone Encounter - Olivia Heredia RN - 06/05/2024 3:55 PM EDT Patient's daughter Elly and her Gustavo returned call and given provider's message below. They prefer pt to be evaluated this evening, if possible. No evening appts available. Family wishes to bring patient to [facility] this evening to have blood pressure checked as well as legs evaluated. Daughter and her spouse would like Corrina Lennon to know that they did make an appt with Dr. Khan in Nephrology but pt cannot be seen until late July. They are asking if this is acceptable or if pt needs seen sooner? Please advise daughter Elly or son-in-law Gustavo. Thank you. * Telephone Encounter - Corrina Lennon APRN.CNP - 06/03/2024 7:42 PM EDT We should probably have him in so we can see his legs and check his blood pressure. Please help schedule. Can we also get him contact info for nephrology. If he is looking for carole, it would probably beDr. Bill? Corrina Lennon APRN.CNP documented in this encounterGerman [facility]08-21-[facility]24 Telephone encounter Note * Telephone Encounter - Corrina Lennon APRN.CNP - 06/05/2024 4:46 PM EDT I am doubtful that express care will address any changes that will need made to his diuretics. If he needs an evening appointment, [facility] has some openings tomorrow evening. Unfortunately, to be seen sooner with urology, he may need to travel out of town. If they are willing to do that, let us know and we can see if we can get him scheduled. Corrina Lennon APRN.KOURTNEY [facility]08-21-2024 NoteHNO ID: [id number] Author: VALERIE GRUBER APRN.KOURTNEY Service: ? Author Type: Nurse Practitioner Type: Progress Notes Filed: 06/05/2024 17:16 Note Text: This note was created using [email or web address].[email or web address]. Subjective Cal Mitchell is a 78 year old male. 78 year old male with PMH HTN, hyperlipidemia, afib, PAD, CKD, DM presents for medical complaints. Acute onset of symptoms was over a week ago Patients daughter had sent in a Janalakshmi message on 06/03/24. At that time she expressed his bilateral leg swelling and inquiring into whether or not medicines need adjusted. On 06/04/24 Corrina Lennon asked for patient to be seen in office this week. Nursing staff reached out today at 4 pm. They wanted an appointment this evening, but none available. Patient presents with his son in law " they told me to come to express [facility]" Son in law states that his medicines " I forget which one" were changed. He is requesting that The history is provided by the patient. No application integration specialist was used. Edema This is a new problem. The current episode started 1 to 4 weeks ago. The problem occurs constantly. The problem has been unchanged. Pertinent negatives include no abdominal pain, arthralgias, chest pain, congestion, coughing, fatigue, fever, headaches, myalgias, nausea, rash or vomiting. Nothing aggravates the symptoms. He has tried nothing for the symptoms. The treatment provided no relief. PAST MEDICAL HISTORY 10/20: Actinic keratosis No date: BPH (benign prostatic hyperplasia) 10/20: Chronic airway obstruction, not elsewhere classified No date: Diabetes (HCC) No date: Diverticulosis of colon (without mention of hemorrhage) 06/07/2018: Ectatic thoracic aorta (HCC) Comment: 06/07/18 Chest CTA: There is atherosclerotic calcification of the thoracic aorta with mild fusiform ectasia of the descending component measuring 3.2 x 3.1 cm 10/20: Impacted cerumen 11/19: Obesity, unspecified 10/19: Other and unspecified hyperlipidemia 10/20: Other symptoms involving cardiovascular system 10/20: Peripheral vascular disease, unspecified (HCC) Comment: R carotid 04/18: Unspecified essential hypertension PAST SURGICAL HISTORY 04-17-14: ARTL CATHJ/CANNULJ MNTR/TRANSFUSION SPX PRQ 40 years ago: COLONOSCOPY FLX DX W/COLLJ SPEC WHEN PFRMD Comment: Colonoscopy 03/02/11: COLONOSCOPY FLX DX W/COLLJ SPEC WHEN PFRMD 10/20: DSTRJ LESION PENIS SIMPLE CHEMICAL No date: PAST SURGICAL HISTORY OF Comment: Skin tag removals - bilateral axillary 10/20: REMOVAL IMPACTED CERUMEN INSTRUMENTATION UNILAT 04-17-14: TEAEC W/PATCH GRF CAROTID VERTB SUBCLAV NECK INC Comment: RIGHT ALLERGIES Patient has no known allergies. MEDICATIONS atorvastatin (LIPITOR) 80 mg tablet Take 1 tablet by mouth daily at bedtime. For cholesterol. escitalopram oxalate (LEXAPRO) 10 mg tablet Take 1 tablet by mouth once daily. finasteride (PROSCAR) 5 mg tablet Take 1 tablet by mouth once daily. lisinopril (ZESTRIL) 20 mg tablet Take 1 tablet by mouth once daily. metoprolol succinate ER (TOPROL XL) 50 mg 24 hr tablet Take 1 tablet by mouth once daily. clopidogrel (PLAVIX) 75 mg tablet Take 1 tablet by mouth once daily. pioglitazone (ACTOS) 30 mg tablet Take 1 tablet by mouth once daily. melatonin 3 mg tablet Take 1 tablet by mouth daily at bedtime. warfarin (COUMADIN) 5 mg tablet 7.5 mg on Monday, 5 mg all other days or as directed memantine (NAMENDA) 10 mg tablet Take 1 tablet by mouth once daily. glimepiride (AMARYL) 2 mg tablet Take 1 tablet by mouth daily with breakfast. nitroglycerin sublingual (NITROQUICK) 0.4 mg SL tablet Dissolve 1 tablet under the tongue as needed. for chest pain,every 5 min x3 acetaminophen (TYLENOL) 500 mg tablet Take 500 mg by mouth every 8 hours as needed. blood sugar diagnostic (ONETOUCH ULTRA TEST) test strip Test blood sugar(s) one times daily. Dx: 250.00. Insulin: No Lancets (ONE TOUCH DELICA) [facility] lancets Test blood sugar(s) one time daily. Dx: 250.00. Insulin: No FAMILY HISTORY Problem Relation Age of Onset Heart Mother of CHF Stroke Maternal Grandfather Social History Tobacco Use Smoking status: Former Current packs/day: 0.00 Average packs/day: 2.0 packs/day for 10.0 years (20.0 ttl pk-yrs) Types: Cigarettes Start date: 12/05/1975 Quit date: 12/05/1985 Years since quittin.5 Smokeless tobacco: Never Vaping Use Vaping status: Never Used Substance Use Topics Alcohol use: No Comment: none now; social in past Drug use: No Review of Systems Constitutional: Negative for fatigue and fever. HENT: Negative for congestion. Respiratory: Negative for apnea, cough, choking and chest tightness. Cardiovascular: Positive for leg swelling. Negative for chest pain and palpitations. Gastrointestinal: Negative for abdominal pain, constipation, diarrhea, nausea and vomiting. Musculoskeletal: Negative for arthralgias, back pain and myalgias. Skin: Negative for color change (more content not included)...[facility]08-21-2024 History of Present illness Narrative* Valerie Gruber APRN.PITCH WORKER - 06/05/2024 4:45 PM EDT This note was created using NoteWriter. Subjective Cal Mitchell is a 78 year old male. 78 year old male with PMH HTN, hyperlipidemia, afib, PAD, CKD, DM presents for medical complaints. Acute onset of symptoms was over a week ago Patients daughter had sent in a Janalakshmi message on 06/03/24. At that time she expressed his bilateral leg swelling and inquiring into whether or not medicines need adjusted. On 06/04/24 Corrina Lennon asked for patient to be seen in office this week. Nursing staff reached out today at 4 pm. They wanted an appointment this evening, but none available. Patient presents with his son in law " they told me to come to express care" Son in law states that his medicines " I forget which one" were changed. He is requesting that The history is provided by the patient. No application integration specialist was used. Edema This is a new problem. The current episode started 1 to 4 weeks ago. The problem occurs constantly.The problem has been unchanged. Pertinent negatives include no abdominal pain, arthralgias, chest pain, congestion, coughing, fatigue, fever, headaches, myalgias, nausea, rash or vomiting. Nothing aggravates the symptoms. He has tried nothing for the symptoms. The treatment provided no relief. PAST MEDICAL HISTORY 10/20: Actinic keratosis No date: BPH (benign prostatic hyperplasia) 10/20: Chronic airway obstruction, not elsewhere classified No date: Diabetes (HCC) No date: Diverticulosis of colon (without mention of hemorrhage) 06/07/2018: Ectatic thoracic aorta (HCC) Comment: 06/07/18 Chest CTA: There is atherosclerotic calcification of the thoracic aorta with mild fusiform ectasia of the descending component measuring 3.2 x 3.1 cm 10/20: Impacted cerumen 11/19: Obesity, unspecified 10/19: Other and unspecified hyperlipidemia 10/20: Other symptoms involving cardiovascular system 10/20: Peripheral vascular disease, unspecified (HCC) Comment: R carotid 04/18: Unspecified essential hypertension PAST SURGICAL HISTORY 04-17-14: ARTL CATHJ/CANNULJ MNTR/TRANSFUSION SPX PRQ 40 years ago: COLONOSCOPY FLX DX W/COLLJ SPEC WHEN PFRMD Comment: Colonoscopy 03/02/11: COLONOSCOPY FLX DX W/COLLJ SPEC WHEN PFRMD 10/20: DSTRJ LESION PENIS SIMPLE CHEMICAL No date: PAST SURGICAL HISTORY OF Comment: Skin tag removals - bilateral axillary 10/20: REMOVAL IMPACTED CERUMEN INSTRUMENTATION UNILAT 7-3-14: TEAEC W/PATCH GRF CAROTID VERTB SUBCLAV NECK INC Comment: RIGHT ALLERGIES Patient has no known allergies. MEDICATIONS atorvastatin (LIPITOR) 80 mg tablet Take 1 tablet by mouth daily at bedtime. For cholesterol. escitalopram oxalate (LEXAPRO) 10 mg tablet Take 1 tablet by mouth once daily. finasteride (PROSCAR) 5 mg tablet Take 1 tablet by mouth once daily. lisinopril (ZESTRIL) 20 mg tablet Take 1 tablet by mouth once daily. metoprolol succinate ER (TOPROL XL) 50 mg 24 hr tablet Take 1 tablet by mouth once daily. clopidogrel (PLAVIX) 75 mg tablet Take 1 tablet by mouth once daily. pioglitazone (ACTOS) 30 mg tablet Take 1 tablet by mouth once daily. melatonin 3 mg tablet Take 1 tablet by mouth daily at bedtime. warfarin (COUMADIN) 5 mg tablet 7.5 mg on Monday, 5 mg all other days or as directed memantine (NAMENDA) 10 mg tablet Take 1 tablet by mouth once daily. glimepiride (AMARYL) 2 mg tablet Take 1 tablet by mouth daily with breakfast. nitroglycerin sublingual (NITROQUICK) 0.4 mg SL tablet Dissolve 1 tablet under the tongue as needed. for chest pain,every 5 min x3 acetaminophen (TYLENOL) 500 mg tablet Take 500 mg by mouth every 8 hours as needed. blood sugar diagnostic (ONETOUCH ULTRA TEST) test strip Test blood sugar(s) one times daily. Dx: 250.00. Insulin: No Lancets (ONE TOUCH DELICA) [facility] lancets Test blood sugar(s) one time daily. Dx: 250.00. Insulin: No FAMILY HISTORY Problem Relation Age of Onset Heart Mother of CHF Stroke Maternal Grandfather Social History Tobacco Use Smoking status: Former Current packs/day: 0.00 Average packs/day: 2.0 packs/day for 10.0 years (20.0 ttl pk-yrs) Types: Cigarettes Start date: 12/05/1975 Quit date: 12/05/1985 Years since quittin.5 Smokeless tobacco: Never Vaping Use Vaping status: Never Used Substance Use Topics Alcohol use: No Comment: none now; social in past Drug use: No Review of Systems Constitutional: Negative for fatigue and fever. HENT: Negative for congestion. Respiratory: Negative for apnea, cough, choking and chest tightness. Cardiovascular: Positive for leg swelling. Negative for chest pain and palpitations. Gastrointestinal: Negative for abdominal pain, constipation, diarrhea, nausea and vomiting. Musculoskeletal: Negative for arthralgias, back pain and myalgias. Skin: Negative for color change, pallor and rash. Allergic/Immunologic: Negative for environmental allergies, food allergies and immunocompromised state. Neurological: Negative for dizziness, facial asymmetry, light-headedness and headaches. Hematological: Negative for adenopathy. Does not bruise/bleed easily. Psychiatric/Behavioral: Negative for agitation and behavioral problems. Objective BP 140/70 Pulse 75 Temp (!) 35.9 C (96.6 F) Resp 19 Wt 110.7 kg (244 lb 0.8 oz) SpO2 97% BMI 36.04 kg/m Physical Exam Vitals and nursing note reviewed. Constitutional: General: He is not in acute distress. Appearance: Normal appearance. He is not ill-appearing, toxic-appearing or diaphoretic. HENT: Head: Normocephalic and atraumatic. Right Ear: External ear normal. Left Ear: External ear normal. Nose: Nose normal. Mouth/Throat: Mouth: Mucous membranes are moist. Pharynx: Oropharynx is clear. Cardiovascular: Rate and Rhythm: Normal rate and regular rhythm. Pulses: Normal pulses. Heart sounds: Normal heart sounds. No murmur heard. No friction rub. No gallop. Pulmonary: Effort: Pulmonary effort is normal. No respiratory distress. Breath sounds: Normal breath sounds. No stridor. No wheezing, rhonchi or rales. Chest: Chest wall: No tenderness. Abdominal: General: Abdomen is flat. There is no distension. Palpations: Abdomen is soft. There is no mass. Tenderness: There is no abdominal tenderness. There is no guarding or rebound. Hernia: No hernia is present. Musculoskeletal: General: Swelling present. No tenderness, deformity or signs of injury. Normal range of motion. Cervical back: Normal range of motion and neck supple. No rigidity or tenderness. Right lower leg: Edema present. Left lower leg: Edema (2 +bilateral edema, pitting.) present. Lymphadenopathy: Cervical: No cervical adenopathy. Skin: General: Skin is warm and dry. Capillary Refill: Capillary refill takes less than 2 seconds. Coloration: Skin is not jaundiced or pale. Findings: No bruising, lesion or rash. Neurological: General: No focal deficit present. Mental Status: He is alert. Psychiatric: Mood and Affect: Mood normal. Behavior: Behavior normal. Thought Content: Thought content normal. Assessment and Plan ASSESSMENT/PLAN: 1. Blood pressure check - ICD9: V81.1, ICD10: Z01.30 (primary diagnosis) 140/70 here in clinic No red flags Have redirected patient back to PCP as requested by PCP when patient family reached out on 06/03/24 Appt made with Corrina Lennon tomorrow 2. Leg swelling - ICD9: 729.81, ICD10: M79.89 Ongoing Was requested to follow up in office, Presented to express care Discussed limitations of express care and that we do not modify and change medicines related to chronic conditions. Reviewed [email or web address] messages where patient was requested to be seen in person by PCP Appt made for AM 06/06/24 Valerie Gruber APRN.PITCH WORKER documented in this encounterGerman Hospital08-21-2024 Telephone encounter Note * Telephone Encounter - Olivia Heredia RN - 06/05/2024 3:55 PM EDT Patient's daughter Elly and her Gustavo returned call and given provider's message below. They prefer pt to be evaluated this evening, if possible. No evening appts available. Family wishes to bring patient to [facility] this evening to have blood pressure checked as well as legs evaluated. Daughter and her spouse would like Corrina Lennon to know that they did make an appt with Dr. Khan in Nephrology but pt cannot be seen until late July. They are asking if this is acceptable or if pt needs seen sooner? Please advise daughter Elly or son-in-law Gustavo. Thank you. [facility]08-19-2024 Telephone encounter Note* Telephone Encounter - Corrina Lennon APRN.CNP - 06/03/2024 7:42 PM EDT We should probably have him in so we can see his legs and check his blood pressure. Please help schedule. Can we also get him contact info for nephrology. If he is looking for carole, it would probably beDr. Bill? Corrina Lennon APRN.PITCH WORKER [facility]08-08-2024 Telephone encounter Note* Telephone Encounter - Chely Nicolas RN - 05/23/2024 9:49 AM EDT Images from the original note were not included. Gladys Bella31 minutes ago (9:17 AM) TR Good Morning. Pt is scheduled for Valve Clinic on 07/10/24 at 8:30 am per Josselyn. [facility]08-08-2024 Miscellaneous Notes* Telephone Encounter - Chely Nicolas RN - 05/23/2024 9:49 AM EDT Images from the original note were not included. Gladys Bella31 minutes ago (9:17 AM) TR Good Morning. Pt is scheduled for Valve Clinic on 07/10/24 at 8:30 am per Josselyn. * Telephone Encounter - Chely Nicolas RN - 05/23/2024 8:27 AM EDT Left message on voicemail requesting pt return call for test results and MD recommendations. Officephone number provided. Chely Nicolas RN * Telephone Encounter - Chely Nicolas RN - 05/23/2024 8:26 AM EDT Images from the original note were not included. Pam Reddy MD You; Josselyn Mayer APRN.CNP15 hours ago (4:42 PM) Let's see at the valve clinic [facility] * Telephone Encounter - Chely Nicolas RN - 05/20/2024 2:46 PM EDT ----- Message from Josselyn Mayer APRN.PITCH WORKER sent at 05/20/2024 2:28 PM EDT ----- Creatinine 2.3. Per chart review he was asymptomatic but had an episode of syncope. Do you want work up first or just valve clinic? Josselyn ----- Message ----- From: Pam Reddy MD Sent: 05/18/2024 8:44 AM EDT To: Chely Nicolas RN; Josselyn Mayer APRN.PITCH WORKER Aortic stenosis need to establish care at the valve clinic [facility] * Telephone Encounter - Chely Nicolas RN - 05/20/2024 9:59 AM EDT Left message on voicemail requesting pt return call for test results. Office phone number provided. Chely Nicolas RN * Telephone Encounter - Chely Nicolas RN - 05/20/2024 9:58 AM EDT ----- Message from Pam Reddy MD sent at 05/18/2024 8:44 AM EDT ----- Aortic stenosis need to establish care at the valve clinic [facility] documented in this encounterGerman Hospital08-08-[facility]24 Telephone encounter Note * Telephone Encounter - Chely Nicolas RN - 05/23/2024 8:27 AM EDT Left message on voicemail requesting pt return call for test results and MD recommendations. Officephone number provided. Chely Nicolas RN [facility]-08[facility] Telephone encounter Note* Telephone Encounter - Chely Nicolas RN - 05/23/2024 8:26 AM EDT Images from the original note were not included. Pam Reddy MD You; Josselyn Mayer, ÁLVARO.CNP15 hours ago (4:42 PM) Let's see at the valve clinic [facility]08-06-[facility] Telephone encounter Note* Telephone Encounter - Claritza Hardin - 05/21/2024 3:10 PM EDT Patient's son in law called in to confirm appointment with Dr. Reddy. Thanks Claritza Hardin [facility]08-06-2024 Miscellaneous Notes* Telephone Encounter - Claritza Hardin - 05/21/2024 3:10 PM EDT Patient's son in law called in to confirm appointment with Dr. Reddy. Thanks Claritza Hardin * Telephone Encounter - Josselyn Mayer, [employer].PITCH WORKER - 05/20/2024 2:29 PM EDT Attempted to call patient to arrange for valve clinic appt. No answer. Requested return phone call. Urban, Please call patient and schedule patient for Valve Clinic 07/10/25 at 8:[address] Reddy - Patient needs to arrive by 8:15 am Creatinine 2.3 currently. Will defer any further work up until valve clinic appt. Patient needs to establish care with Nephrologists. Thank you, Josselyn Mayer APRN.CNP documented in this encounterGerman Hospital08-05-2024 Telephone encounter Note * Telephone Encounter - Chely Nicolas RN - 05/20/2024 2:46 PM EDT ----- Message from Josselyn Mayer APRN.CNP sent at 05/20/2024 2:28 PM EDT ----- Creatinine 2.3. Per chart review he was asymptomatic but had an episode of syncope. Do you want work up first or just valve clinic? Josselyn ----- Message ----- From: Pam Reddy MD Sent: 05/18/2024 8:44 AM EDT To: Chely Nicolas, BENJIE; Josselyn Mayer APRN.CNP Aortic stenosis need to establish care at the valve clinic [facility]08-05-2024 Telephone encounter Note* Telephone Encounter - Josselyn Mayer APRN.CNP - 05/20/2024 2:29 PM EDT Attempted to call patient to arrange for valve clinic appt. No answer. Requested return phone call. Urban, Please call patient and schedule patient for Valve Clinic 07/10/25 at 8:[address] Reddy - Patient needs to arrive by 8:15 am Creatinine 2.3 currently. Will defer any further work up until valve clinic appt. Patient needs to establish care with Nephrologists. Thank you, Josselyn Mayer APRN.CNP [facility] Work Phone: [phone]) 678-929608-05-2024 Telephone encounter Note* Telephone Encounter - Chely Nicolas RN - 05/20/2024 9:59 AM EDT Left message on voicemail requesting pt return call for test results. Office phone number provided. Chely Nicolas RN [facility]08-05-2024 Telephone encounter Note* Telephone Encounter - Chely Nicolas RN - 05/20/2024 9:58 AM EDT ----- Message from Pam Reddy MD sent at 05/18/2024 8:44 AM EDT ----- Aortic stenosis need to establish care at the valve clinic [facility]08-02-2024 Telephone encounter Note* Telephone Encounter - Dorothy Sainz [facility] - 05/17/2024 9:22 AM EDT [facility] Anticoagulation Episode Summary Anticoagulation Care Providers Provider Role Specialty Phone number Guanakito Reno MD [facility] [phone] Cal Mitchell is a 78 year old year old male patient being evaluated today for a Telemanagementvisit. Patient is currently on the following anticoagulant(s) Warfarin. Labs PT INR (no units) Date Value 09/28/2022 1.9 (self reporting) 01/24/2022 2.1 biotel 10/26/2021 2.1 (Biotel) INR Home CoaguChek (no units) Date Value 05/16/2024 2.8 04/23/2024 2.7 04/08/2024 2.3 Hemoglobin (g/dL) Date Value 04/19/2024 9.5 10/06/2020 12.3 Hematocrit (%) Date Value 04/19/2024 32.3 10/06/2020 39.0 Platelet Count (k/uL) Date Value 04/19/2024 160 10/06/2020 189 Creatinine (mg/dL) Date Value 04/19/2024 2.35 04/04/2024 2.61 03/25/2024 2.48 10/06/2020 1.60 07/18/2019 1.46 03/18/2019 1.51 Bilirubin, Total (mg/dL) Date Value 03/25/2024 0.3 10/06/2020 0.4 ALT (U/L) Date Value 03/25/2024 15 10/06/2020 16 AST (U/L) Date Value 03/25/2024 19 10/06/2020 17 Estimated Creatinine Clearance: 31.6 mL/min (A) (based on SCr of 2.35 mg/dL (H)). 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 [facility]08-[facility] Miscellaneous Notes* Telephone Encounter - Dorothy Sainz RPh - 05/17/2024 9:22 AM EDT [facility] Anticoagulation Episode Summary Anticoagulation Care Providers Provider Role Specialty Phone number Guanakito Reno MD [facility] Family Medicine [phone] Cal Mitchell is a 78 year old year old male patient being evaluated today for a Telemanagementvisit. Patient is currently on the following anticoagulant(s) Warfarin. Labs PT INR (no units) Date Value 09/28/2022 1.9 (self reporting) 01/24/2022 2.1 biotel 10/26/2021 2.1 (Biotel) INR Home CoaguChek (no units) Date Value 05/16/2024 2.8 04/23/2024 2.7 04/08/2024 2.3 Hemoglobin (g/dL) Date Value 04/19/2024 9.5 10/06/2020 12.3 Hematocrit (%) Date Value 04/19/2024 32.3 10/06/2020 39.0 Platelet Count (k/uL) Date Value 04/19/2024 160 10/06/2020 189 Creatinine (mg/dL) Date Value 04/19/2024 2.35 04/04/2024 2.61 03/25/2024 2.48 10/06/2020 1.60 07/18/2019 1.46 03/18/2019 1.51 Bilirubin, Total (mg/dL) Date Value 03/25/2024 0.3 10/06/2020 0.4 ALT (U/L) Date Value 03/25/2024 15 10/06/2020 16 AST (U/L) Date Value 03/25/2024 19 10/06/2020 17 Estimated Creatinine Clearance: 31.6 mL/min (A) (based on SCr of 2.35 mg/dL (H)). 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 documented in this encounterGerman Hospital07-22-2024 Instructions* Patient Instructions* Corrina Lennon APRN.PITCH WORKER - 05/06/2024 6:38 PM EDT Continue to try to get the stool sample. Continue the same medication. Schedule with nephrology (kidney doctor). Recheck with Dr. Reno in 2 months. documented in this encounterGerman Hospital07-22-2024 History of Present illness Narrative* Corrina Lennon APRN.PITCH WORKER - 05/06/2024 6:09 PM EDT This is a 78 year old male who presents today with: Patient presents with: Follow Up: htn- ultrasound on kidneys and labs, family worried about falls HISTORY OF PRESENT ILLNESS: Cal Mitchell is a 78 year old male. Patient presents with: Follow Up: htn- ultrasound on kidneys and labs, family worried about falls Pt presents today to follow-up. He had his HCTZ stopped d/t hypotension. At last visit, BP was stable. We wanted to follow-up on BP/swelling. Breathing has been okay. No SOB. No chest pains/palpitations. Denies any swelling. Refers the other week, patient had a fall. Was outside and grabbed the khci-bp-alik and shook it for a few seconds and then fell. Denies any LOC. No loss of bowel/bladder with fall. Checks glucose afterwards, and "it was fine." Denies injury. Pt doesn't recall dizziness or feeling faint/syncopal. Continues to be anemic, but appears stable. Difficulty trying to get ifob. + CKD -- working on getting scheduled w/ nephrology. PAST MEDICAL HISTORY: PAST MEDICAL HISTORY Diagnosis Date Actinic keratosis 10/20 BPH (benign prostatic hyperplasia) Chronic airway obstruction, not elsewhere classified 10/20 Diabetes (HCC) Diverticulosis of colon (without mention of hemorrhage) Ectatic thoracic aorta (HCC) 06/07/2018 06/07/18 Chest CTA: There is atherosclerotic calcification of the thoracic aorta with mild fusiform ectasia of the descending component measuring 3.2 x 3.1 cm Impacted cerumen 10/20 Obesity, unspecified 11/19 Other and unspecified hyperlipidemia 10/19 Other symptoms involving cardiovascular system 10/20 Peripheral vascular disease, unspecified (HCC) 10/20 R carotid Unspecified essential hypertension 04/18 PAST SURGICAL HISTORY Procedure Laterality Date ARTL CATHJ/CANNULJ MNTR/TRANSFUSION SPX PRQ 7-3-14 COLONOSCOPY FLX DX W/COLLJ SPEC WHEN PFRMD 40 years ago Colonoscopy COLONOSCOPY FLX DX W/COLLJ SPEC WHEN PFRMD 03/02/11 DSTRJ LESION PENIS SIMPLE CHEMICAL 10/20 PAST SURGICAL HISTORY OF Skin tag removals - bilateral axillary REMOVAL IMPACTED CERUMEN INSTRUMENTATION UNILAT 10/20 TEAEC W/PATCH GRF CAROTID VERTB SUBCLAV NECK INC 04-17-14 RIGHT ALLERGIES Patient has no known allergies. MEDICATIONS Current Outpatient Medications Medication Sig atorvastatin (LIPITOR) 80 mg tablet Take 1 tablet by mouth daily at bedtime. For cholesterol. escitalopram oxalate (LEXAPRO) 10 mg tablet Take 1 tablet by mouth once daily. finasteride (PROSCAR) 5 mg tablet Take 1 tablet by mouth once daily. lisinopril (ZESTRIL) 20 mg tablet Take 1 tablet by mouth once daily. metoprolol succinate ER (TOPROL XL) 50 mg 24 hr tablet Take 1 tablet by mouth once daily. clopidogrel (PLAVIX) 75 mg tablet Take 1 tablet by mouth once daily. pioglitazone (ACTOS) 30 mg tablet Take 1 tablet by mouth once daily. melatonin 3 mg tablet Take 1 tablet by mouth daily at bedtime. warfarin (COUMADIN) 5 mg tablet 7.5 mg on Monday, 5 mg all other days or as directed memantine (NAMENDA) 10 mg tablet Take 1 tablet by mouth once daily. glimepiride (AMARYL) 2 mg tablet Take 1 tablet by mouth daily with breakfast. nitroglycerin sublingual (NITROQUICK) 0.4 mg SL tablet Dissolve 1 tablet under the tongue as needed. for chest pain,every 5 min x3 acetaminophen (TYLENOL) 500 mg tablet Take 500 mg by mouth every 8 hours as needed. blood sugar diagnostic (ONETOUCH ULTRA TEST) test strip Test blood sugar(s) one times daily. Dx: 250.00. Insulin: No Lancets (ONE TOUCH DELICA) [facility] lancets Test blood sugar(s) one time daily. Dx: 250.00. Insulin: No Current Facility-Administered Medications Medication Dose Route Frequency perflutren lipid microspheres 1.3 mL in NaCl (PF) 0.9% 10 mL injection (DEFINITY) INTRAVENOUS DIRECTED PRN sodium chloride 0.9 % (flush) 10 mL (BD POSIFLUSH) 10 mL INTRAVENOUS DIRECTED PRN FAMILY HISTORY Problem Relation Age of Onset Heart Mother of CHF Stroke Maternal Grandfather Social History Tobacco Use Smoking status: Former Packs/day: 2.00 Years: 10.00 Additional pack years: 0.00 Total pack years: 20.00 Types: Cigarettes Quit date: 12/05/1985 Years since quittin.4 Smokeless tobacco: Never Vaping Use Vaping Use: Never used Substance Use Topics Alcohol use: No Comment: none now; social in past Drug use: No EXAM: BP 122/58 (BP Site: Left Arm, BP Position: Sitting, BP Cuff Size: Large Adult) Pulse 62 Resp 14 Ht 175.3 cm (5' 9") Wt 116.6 kg (257 lb) SpO2 89% BMI 37.95 kg/m PHYSICAL EXAM: General Appearance: Well appearing, alert, in no acute distress, well-hydrated, well nourished.. Skin: Skin color, texture, turgor normal, no suspicious rashes or lesions. Head: Normocephalic, no masses, lesions, tenderness or abnormalities. Eyes: Anicteric sclera. Extraocular movements are intact. . Lungs: Lungs clear to auscultation. No wheezing, rhonchi, rales.. Heart: RRR without gallop, or rubs. + murmur. Extremities: No deformities, skin discoloration, clubbing or cyanosis. Trace - +1 edema. Good capillary refill. . Neurologic: Gait normal w/ cane. ASSESSMENT/PLAN: 1. Essential hypertension - ICD9: 401.9, ICD10: I10 (primary diagnosis) - Controlled - Continue current medications - Recommend home blood pressure monitoring, to bring results to next visit - Encouraged sodium restriction, DASH or Mediterranean diet - Recommend regular aerobic exercise 2. Hypertensive kidney disease with stage 3 chronic kidney disease, unspecified whether stage 3a or3b CKD (HCC) - ICD9: 403.90, 585.3, ICD10: I12.9, N18.30 Get scheduled w/ nephrology 3. Anemia, unspecified type - ICD9: 285.9, ICD10: D64.9 Stable Schedule w/ nephrology. Discussed treatment plan and patient voices understanding. Patient's questions answered appropriately. Medications and potential side effects were discussed and patient voices understanding. Return to the office as scheduled or as needed for worsening/no improvement. Corrina Lennon APRN.PITCH WORKER documented in this encounterGerman Hospital07-18-2024 History of Present illness Narrative* Jody Queen RDMS - 05/02/2024 10:00 AM EDT Radiology Service Progress Note PATIENT NAME: Cal Mitchell DATE OF SERVICE: May 02, 2024 TIME: 10:49 AM PATIENT IDENTITY VERIFICATION COMPLETED USING TWO (2) IDENTIFIERS: Name and Date of confirmedby patient verbally. FALL SCREENING: Has the patient had 2 falls in the last year or 1 fall with injury or currently using an Ambulatory Assistive Device (Walker, Cane, Wheelchair, Crutches, etc.)? Yes, Patient High Riskfor Falls What interventions were put in place to prevent falls during this visit? Offered Assistance with Transfers/Clothing and Increased Observations by Caregivers PATIENT GENDER DATA: Male PATIENT RELEVANT IMPLANT DATA REVIEWED: Not Applicable PATIENT PRESENTS WITH AN IMPLANTABLE OR ATTACHED LONG GOODS DRIER: No RADIOLOGY DEPARTMENT: Ultrasound PERIPHERAL IV DATA: Not applicable SIGNED BY: Jody Queen RDMS May 02, 2024 10:49 AM documented in this encounterGerman Hospital07-15-2024 Telephone encounter Note * Telephone Encounter - Stephany Graves MA - 04/29/2024 9:48 AM EDT Spoke with daughter. She stated she was suppose to call the local door maker but didn't have the number and then forgot to call office to get it. Also she is not able to log into the [employer] account, states she forgot password. I have sent number for Dr. Khan to pt home along with [email or web address] number so she can get [email or web address] account fixed and call to set up his appt with door maker. Pt needs refill of Lipitor sent to [facility]. Stephany Graves MA [facility]07-15-2024 Miscellaneous Notes* Telephone Encounter - Stephany Graves MA - 04/29/2024 9:48 AM EDT Spoke with daughter. She stated she was suppose to call the local door maker but didn't have the number and then forgot to call office to get it. Also she is not able to log into the [employer] account, states she forgot password. I have sent number for Dr. Khan to pt home along with [employer] number [facility] and call to set up his appt with door maker. Pt needs refill of Lipitor sent to [facility]. Stephany Graves MA * Telephone Encounter - Geovanna Hinds MA - 04/19/2024 4:14 PM EDT Left message for patient to return call. Geovanna Hinds Ma * Telephone Encounter - Guanakito Reno MD - 04/19/2024 3:46 PM EDT Anemia is stable. I still need an ifobt done since he is on blood thinners to rule out gi blood loss. It may well be related to his kidneys. They are stable but worse. Did he get set up with nephrology? Was ordered previously. documented in this encounterGerman Hospital07-10-2024 Telephone encounter Note * Telephone Encounter - Ruthie Cuevas RPh - 04/24/2024 9:45 AM EDT [facility] Anticoagulation Episode Summary Anticoagulation Care Providers Provider Role Specialty Phone number Guanakito Reno MD [facility] Family Medicine [phone] Cal Mitchell is a 78 year old year old male patient being evaluated today for a Telemanagementvisit. Patient is currently on the following anticoagulant(s) Warfarin. Labs PT INR (no units) Date Value 09/28/2022 1.9 (self reporting) 01/24/2022 2.1 biotel 10/26/2021 2.1 (Biotel) INR Home CoaguChek (no units) Date Value 04/23/2024 2.7 04/08/2024 2.3 04/04/2024 6.0 Hemoglobin (g/dL) Date Value 04/19/2024 9.5 10/06/2020 12.3 Hematocrit (%) Date Value 04/19/2024 32.3 10/06/2020 39.0 Platelet Count (k/uL) Date Value 04/19/2024 160 10/06/2020 189 Creatinine (mg/dL) Date Value 04/19/2024 2.35 04/04/2024 2.61 03/25/2024 2.48 10/06/2020 1.60 07/18/2019 1.46 03/18/2019 1.51 Bilirubin, Total (mg/dL) Date Value 03/25/2024 0.3 10/06/2020 0.4 ALT (U/L) Date Value 03/25/2024 15 10/06/2020 16 AST (U/L) Date Value 03/25/2024 19 10/06/2020 17 Estimated Creatinine Clearance: 31.5 mL/min (A) (based on SCr of 2.35 mg/dL (H)). 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 [facility] Miscellaneous Notes* Telephone Encounter - Ruthie Cuevas RPh - 04/24/2024 9:45 AM EDT [facility] Anticoagulation Episode Summary Anticoagulation Care Providers Provider Role Specialty Phone number Guanakito Reno MD [facility] [phone] Cal Mitchell is a 78 year old year old male patient being evaluated today for a Telemanagementvisit. Patient is currently on the following anticoagulant(s) Warfarin. Labs PT INR (no units) Date Value 09/28/2022 1.9 (self reporting) 01/24/2022 2.1 biotel 10/26/2021 2.1 (Biotel) INR Home CoaguChek (no units) Date Value 04/23/2024 2.7 04/08/2024 2.3 04/04/2024 6.0 Hemoglobin (g/dL) Date Value 04/19/2024 9.5 10/06/2020 12.3 Hematocrit (%) Date Value 04/19/2024 32.3 10/06/2020 39.0 Platelet Count (k/uL) Date Value 04/19/2024 160 10/06/2020 189 Creatinine (mg/dL) Date Value 04/19/2024 2.35 04/04/2024 2.61 03/25/2024 2.48 10/06/2020 1.60 07/18/2019 1.46 03/18/2019 1.51 Bilirubin, Total (mg/dL) Date Value 03/25/2024 0.3 10/06/2020 0.4 ALT (U/L) Date Value 03/25/2024 15 10/06/2020 16 AST (U/L) Date Value 03/25/2024 19 10/06/2020 17 Estimated Creatinine Clearance: 31.5 mL/min (A) (based on SCr of 2.35 mg/dL (H)). 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: [facility] (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 Paroxysmal atrial fibrillation (hcc) Anticoagulation Episode Summary Current INR goal: 2.0-3.0 Assessment: INR result of 2.7 is therapeutic Plan: Current Warfarin Dosing As of 04/24/2024 Full warfarin instructions: 5 mg every day Sent [email or web address] message Advised patient to continue current weekly dose as noted above Next home INR check scheduled on 05/07/2024 Ruthie Cuevas [facility] Clinical Pharmacist, Pharmacy Anticoagulation Clinic Pharmacy Anticoagulation Clinic Pager: [phone]. documented in this encounterGerman Hospital07-05-2024 Telephone encounter Note * Telephone Encounter - Geovanna Hinds MA - 04/19/2024 4:14 PM EDT Left message for patient to return call. Geovanna Hinds Ma [facility] Telephone encounter Note* Telephone Encounter - Guanakito Reno MD - 04/19/2024 3:46 PM EDT Anemia is stable. I still need an ifobt done since he is on blood thinners to rule out gi blood loss. It may well be related to his kidneys. They are stable but worse. Did he get set up with nephrology? Was ordered previously. [facility] Telephone encounter Note* Telephone Encounter - Corrina Lennon APRN.CNP - 04/08/2024 3:45 PM EDT Pt aware. Corrina Lennon APRN.PITCH WORKER [facility]-24-[facility] Miscellaneous Notes* Telephone Encounter - Corrina Lennon APRN.CNP - 04/08/2024 3:45 PM EDT Pt aware. Corrina Lennon APRN.CNP * Telephone Encounter - Josselyn Barrow LPN - 04/05/2024 4:25 PM EDT Has visit scheduled with Corrina on Monday will route to their pool. If he keeps that appt can you please close for us? Thank you. * Telephone Encounter - Carolina Alba MA - 04/05/2024 4:19 PM EDT No answer. Left detailed message stating we were calling in regards to results and needing to discuss a few things. Advised to return call. Carolina Alba MA * Telephone Encounter - Jonelle Worley LPN - 04/05/2024 10:41 AM EDT Phoned patient left message to return call and ask to speak to a nurse. * Telephone Encounter - Guanakito Reno MD - 04/05/2024 10:21 AM EDT Anemia is stable. May be related to his kidneys. Renal function continues to be slightly worse. Get renal us as ordered. Check ifobt. Recheck labs in two weeks. See nephrology documented in this encounterGerman Hospital06-24-2024 Telephone encounter Note * Telephone Encounter - Alejandro Molina RPh - 04/08/2024 3:36 PM EDT [facility] Anticoagulation Episode Summary Anticoagulation Care Providers Provider Role Specialty Phone number Guanakito Reno MD [facility] Family Medicine [phone] Cal Mitchell is a 78 year old year old male patient being evaluated today for a Telemanagementvisit. Patient is currently on the following anticoagulant(s) Warfarin. Labs PT INR (no units) Date Value 09/28/2022 1.9 (self reporting) 01/24/2022 2.1 biotel 10/26/2021 2.1 (Biotel) INR Home CoaguChek (no units) Date Value 04/08/2024 2.3 04/04/2024 6.0 03/07/2024 3.8 Estimated Creatinine Clearance: 28.3 mL/min (A) (based on SCr of 2.61 mg/dL (H)). 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: Anticoagulation Episode Summary Current INR goal: 2.0-3.0 Assessment: INR result of 2.3 is therapeutic Plan: Current Warfarin Dosing As of 04/08/2024 Full warfarin instructions: 5 mg every day Called and spoke to patient/caregiver Advised patient to decrease total weekly regimen Next INR check due on 04/15/2024 Patient's caregiver verbalizes understanding of the plan. Alejandro Molina RPh Clinical Pharmacist, Pharmacy Anticoagulation Clinic Pharmacy Anticoagulation Clinic Pager: [phone]. [facility] Miscellaneous Notes* Telephone Encounter - Alejandro Molina RPh - 04/08/2024 3:36 PM EDT [facility] Anticoagulation Episode Summary Anticoagulation Care Providers Provider Role Specialty Phone number Guanakito Reno MD [facility] [phone] Cal Mitchell is a 78 year old year old male patient being evaluated today for a Telemanagementvisit. Patient is currently on the following anticoagulant(s) Warfarin. Labs PT INR (no units) Date Value 09/28/2022 1.9 (self reporting) 01/24/2022 2.1 biotel 10/26/2021 2.1 (Biotel) INR Home CoaguChek (no units) Date Value 04/08/2024 2.3 04/04/2024 6.0 03/07/2024 3.8 Estimated Creatinine Clearance: 28.3 mL/min (A) (based on SCr of 2.61 mg/dL (H)). 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: Anticoagulation Episode Summary Current INR goal: 2.0-3.0 Assessment: INR result of 2.3 is therapeutic Plan: Current Warfarin Dosing As of 04/08/2024 Full warfarin instructions: 5 mg every day Called and spoke to patient/caregiver Advised patient to decrease total weekly regimen Next INR check due on 04/15/2024 Patient's caregiver verbalizes understanding of the plan. Alejandro Molina RPh Clinical Pharmacist, Pharmacy Anticoagulation Clinic Pharm[facility] Pager: [phone]. documented in this encounterGerman Hospital06-24-2024 Instructions* Patient Instructions* Corrina Lennon APRN.CNP - 04/08/2024 3:11 PM EDT Continue the same medication. Get the repeat labs in 2 weeks. Get the echo, carotid ultrasound, kidney ultrasound as planned. Schedule w/ nephrology. Schedule back in 1 month for recheck. documented in this encounterGerman Hospital06-24-2024 History of Present illness Narrative* Corrina Lennon APRN.CNP - 04/08/2024 3:03 PM EDT This is a 78 year old male who presents today with: Patient presents with: Recheck: 2 week follow up HISTORY OF PRESENT ILLNESS: Cal Mitchell is a 78 year old male. Patient presents with: Recheck: 2 week follow up Pt presents with 2 week follow up after labs and medication No shortness of breath or chest pain, no increased swelling No lightheaded or dizziness No black or tarry stools, no hematuria Discussed with patient regarding Dr. Reno's phone note PAST MEDICAL HISTORY: PAST MEDICAL HISTORY Diagnosis Date Actinic keratosis 10/20 BPH (benign prostatic hyperplasia) Chronic airway obstruction, not elsewhere classified 10/20 Diabetes (HCC) Diverticulosis of colon (without mention of hemorrhage) Ectatic thoracic aorta (HCC) 06/07/2018 06/07/18 Chest CTA: There is atherosclerotic calcification of the thoracic aorta with mild fusiform ectasia of the descending component measuring 3.2 x 3.1 cm Impacted cerumen 10/20 Obesity, unspecified 11/19 Other and unspecified hyperlipidemia 10/19 Other symptoms involving cardiovascular system 10/20 Peripheral vascular disease, unspecified (HCC) 10/20 R carotid Unspecified essential hypertension 04/18 PAST SURGICAL HISTORY Procedure Laterality Date ARTL CATHJ/CANNULJ MNTR/TRANSFUSION SPX PRQ 04-17-14 COLONOSCOPY FLX DX W/COLLJ SPEC WHEN PFRMD 40 years ago Colonoscopy COLONOSCOPY FLX DX W/COLLJ SPEC WHEN PFRMD 03/02/11 DSTRJ LESION PENIS SIMPLE CHEMICAL 10/20 PAST SURGICAL HISTORY OF Skin tag removals - bilateral axillary REMOVAL IMPACTED CERUMEN INSTRUMENTATION UNILAT 10/20 TEAEC W/PATCH GRF CAROTID VERTB SUBCLAV NECK INC 04-17-14 RIGHT ALLERGIES Patient has no known allergies. MEDICATIONS Current Outpatient Medications Medication Sig atorvastatin (LIPITOR) 80 mg tablet Take 1 tablet by mouth daily at bedtime. For cholesterol. lisinopril (ZESTRIL) 20 mg tablet Take 1 tablet by mouth once daily. metoprolol succinate ER (TOPROL XL) 50 mg 24 hr tablet Take 1 tablet by mouth once daily. clopidogrel (PLAVIX) 75 mg tablet Take 1 tablet by mouth once daily. pioglitazone (ACTOS) 30 mg tablet Take 1 tablet by mouth once daily. melatonin 3 mg tablet Take 1 tablet by mouth daily at bedtime. warfarin (COUMADIN) 5 mg tablet 7.5 mg on Monday, 5 mg all other days or as directed memantine (NAMENDA) 10 mg tablet Take 1 tablet by mouth once daily. finasteride (PROSCAR) 5 mg tablet Take 1 tablet by mouth once daily. escitalopram oxalate (LEXAPRO) 10 mg tablet Take 1 tablet by mouth once daily. glimepiride (AMARYL) 2 mg tablet Take 1 tablet by mouth daily with breakfast. nitroglycerin sublingual (NITROQUICK) 0.4 mg SL tablet Dissolve 1 tablet under the tongue as needed. for chest pain,every 5 min x3 acetaminophen (TYLENOL) 500 mg tablet Take 500 mg by mouth every 8 hours as needed. blood sugar diagnostic (ONETOUCH ULTRA TEST) test strip Test blood sugar(s) one times daily. Dx: 250.00. Insulin: No Lancets (ONE TOUCH DELICA) [facility] lancets Test blood sugar(s) one time daily. Dx: 250.00. Insulin: No Current Facility-Administered Medications Medication Dose Route Frequency perflutren lipid microspheres 1.3 mL in NaCl (PF) 0.9% 10 mL injection (DEFINITY) INTRAVENOUS DIRECTED PRN sodium chloride 0.9 % (flush) 10 mL (BD POSIFLUSH) 10 mL INTRAVENOUS DIRECTED PRN FAMILY HISTORY Problem Relation Age of Onset Heart Mother of CHF Stroke Maternal Grandfather Social History Tobacco Use Smoking status: Former Packs/day: 2.00 Years: 10.00 Additional pack years: 0.00 Total pack years: 20.00 Types: Cigarettes Quit date: 12/05/1985 Years since quittin.3 Smokeless tobacco: Never Vaping Use Vaping Use: Never used Substance Use Topics Alcohol use: No Comment: none now; social in past Drug use: No EXAM: BP 102/58 Pulse 72 Resp 16 PHYSICAL EXAM: General Appearance: Well appearing, alert, in no acute distress, well-hydrated, well nourished.. Skin: Skin color, texture, turgor normal, no suspicious rashes or lesions. Head: Normocephalic, no masses, lesions, tenderness or abnormalities. Eyes: Anicteric sclera. Pupils are equally round and reactive to light. Extraocular movements are intact. . Neck: Supple, no adenopathy; thyroid symmetric, normal size, no bruits. Lungs: Lungs clear to auscultation. No wheezing, rhonchi, rales.. Heart: RRR without gallop, or rubs. No ectopy. + systolic murmur. Abdomen: Abdomen soft, non-tender, distended. No masses, organomegaly. Extremities: No deformities, skin discoloration, clubbing or cyanosis. 1+ edema BLE. Good capillaryrefill. Neurologic: Gait normal. ASSESSMENT/PLAN: 1. Essential hypertension - ICD9: 401.9, ICD10: I10 (primary diagnosis) - Controlled - BP: 102/58 - Continue current medications - Encouraged sodium restriction, DASH or Mediterranean diet - Recommend regular aerobic exercise Since HCTZ stopped, encouraged daily weights and directed when to call provider. 2. Benign prostatic hyperplasia without lower urinary tract symptoms - ICD9: 600.00, ICD10: N40.0 - FINASTERIDE 5 MG TABLET 3. Hypertensive kidney disease with stage 3 chronic kidney disease, unspecified whether stage 3a or3b CKD (HCC) - ICD9: 403.90, 585.3, ICD10: I12.9, N18.30 - Worsening control - Recommend home blood pressure monitoring, to bring results to next visit - Encouraged sodium restriction, DASH or Mediterranean diet - Recommend regular aerobic exercise - Counseled on low sodium diet - Follow up with kidney medicine - Kidney/Bladder scheduled 05/02/2024 - LISINOPRIL 20 MG TABLET - BMP in 2 weeks 4. Aortic valve disorder - ICD9: 424.1, ICD10: I35.9 - follows with cardiology - echo scheduled 05/02/2024 5. Occlusion and stenosis of unspecified carotid artery - ICD9: 433.10, ICD10: I65.29 - follows with vascular - US carotids scheduled 05/02/2024 6. Anemia, unspecified type - ICD9: 285.9, ICD10: D64.9 - repeat CBC in 2 weeks - pt encouraged to complete fecal occult order Discussed treatment plan and patient voices understanding. Patient's questions answered appropriately. Medications and potential side effects were discussed and patient voices understanding. Return to the office as scheduled or as needed for worsening/no improvement. Corrina Lennon APRN.KOURTNEY The patient indicates understanding of these issues and agrees with the plan. documented in this encounterGerman Hospital06-22-2024 Telephone encounter Note * Telephone Encounter - Nabila Jimenez RPh - 04/06/2024 4:33 PM EDT Called and spoke with patient's daughter, January. Confirmed that patient held two doses. Advised patient to take 5 mg daily then recheck INR on Monday. Agreeable to plan. No unusual bruising or bleeding. Advised daughter to have patient go to the EDwith any falls or bumps to the head or unusual bruising/bleeding. Will follow up on Monday Diana Jimenez, SamirD, MPH Anticoagulation Clinic Pharmacist [phone] [facility]06-[facility] Miscellaneous Notes* Telephone Encounter - Nabila Jimenez RPh - 04/06/2024 4:33 PM EDT Called and spoke with patient's daughter, January. Confirmed that patient held two doses. Advised patient to take 5 mg daily then recheck INR on Monday. Agreeable to plan. No unusual bruising or bleeding. Advised daughter to have patient go to the EDwith any falls or bumps to the head or unusual bruising/bleeding. Will follow up on Monday Diana Jimenez PharmD, MPH Anticoagulation Clinic Pharmacist [phone] * Telephone Encounter - Nabila Jimenez RPh - 04/06/2024 3:49 PM EDT Called and LM for patient and sent [employer] referenced in VM (though patient has not logged into [employer] since December). Patient was asked to call/page PAC at next convenience to confirm receipt of message Will follow up on Monday and expect next INR on that date Diana Jimenez PharmD, MPH Anticoagulation Clinic Pharmacist [phone] * Telephone Encounter - Yamilka Heath RN - 04/04/2024 1:14 PM EDT Alana Perez calling in INR result today (04/04.) result has been addressed below. Apurva Heath RN Pharmacy Anticoagulation Clinic * Telephone Encounter - Jimmy Carrizales [facility] - 04/04/2024 12:26 PM EDT [facility] Anticoagulation Episode Summary Anticoagulation Care Providers Provider Role Specialty Phone number Guanakito Reno MD [facility] Family Medicine [phone] Cal Mitchell is a 78 year old year old male patient being evaluated today for a Telemanagementvisit. Patient is currently on the following anticoagulant(s) Warfarin. Labs PT INR (no units) Date Value 09/28/2022 1.9 (self reporting) 01/24/2022 2.1 biotel 10/26/2021 2.1 (Biotel) INR Home CoaguChek (no units) Date Value 04/04/2024 6.0 03/07/2024 3.8 02/13/2024 2.2 Hemoglobin (g/dL) Date Value 03/25/2024 9.6 10/06/2020 12.3 Hematocrit (%) Date Value 03/25/2024 31.8 10/06/2020 39.0 Platelet Count (k/uL) Date Value 03/25/2024 158 10/06/2020 189 Creatinine (mg/dL) Date Value 03/25/2024 2.48 08/14/2023 2.30 01/18/2022 1.83 10/06/2020 1.60 07/18/2019 1.46 03/18/2019 1.51 Bilirubin, Total (mg/dL) Date Value 03/25/2024 0.3 10/06/2020 0.4 ALT (U/L) Date Value 03/25/2024 15 10/06/2020 16 AST (U/L) Date Value 03/25/2024 19 10/06/2020 17 Estimated Creatinine Clearance: 29.6 mL/min (A) (based on SCr of 2.48 mg/dL (H)). 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 Paroxysmal atrial fibrillation (hcc) Anticoagulation Episode Summary Current INR goal: 2.0-3.0 Assessment: INR result of 6.0 is SUPRAtherapeutic due to: unknown cause - did not speak to patient Plan: Current Warfarin Dosing As of 04/04/2024 Full warfarin instructions: 04/04: Hold; Otherwise 7.5 mg every Tue; 5 mg all other days Left voice message Advised patient to HOLD warfarin and call the PAC back to discuss PAC will follow up tomorrow if no return call tomorrow Jimmy Carrizales [facility] Clinical Pharmacist, Pharmacy Anticoagulation Clinic Pharmacy Anticoagulation Clinic Pager: [phone]. documented in this encounterGerman Hospital06-22-2024 Telephone encounter Note * Telephone Encounter - Nabila Jimenez RPh - 04/06/2024 3:49 PM EDT Called and LM for patient and sent MyChart referenced in VM (though patient has not logged into [employer] since December). Patient was asked to call/page PAC at next convenience to confirm receipt of message Will follow up on Monday and expect next INR on that date Diana Jimenez, SamirD, MPH Anticoagulation Clinic Pharmacist [phone] [facility] Telephone encounter Note* Telephone Encounter - Josselyn Barrow LPN - 04/05/2024 4:25 PM EDT Has visit scheduled with Corrina on Monday will route to their pool. If he keeps that appt can you please close for us? Thank you. [facility]06-[facility] Telephone encounter Note* Telephone Encounter - Carolina Alba MA - 04/05/2024 4:19 PM EDT No answer. Left detailed message stating we were calling in regards to results and needing to discuss a few things. Advised to return call. Carolina Alba MA [facility]06-[facility] Telephone encounter Note* Telephone Encounter - Jonelle Worley LPN - 04/05/2024 10:41 AM EDT Phoned patient left message to return call and ask to speak to a nurse. [facility] Telephone encounter Note* Telephone Encounter - Guanakito Reno MD - 04/05/2024 10:21 AM EDT Anemia is stable. May be related to his kidneys. Renal function continues to be slightly worse. Get renal us as ordered. Check ifobt. Recheck labs in two weeks. See nephrology [facility]06-[facility] Telephone encounter Note* Telephone Encounter - Yamilka Heath RN - 04/04/2024 1:14 PM EDT Alana Perez calling in INR result today (04/04.) result has been addressed below. Apurva Heath RN Pharmacy Anticoagulation Clinic [facility] Telephone encounter Note* Telephone Encounter - Jimmy Carrizales [facility] - 04/04/2024 12:26 PM EDT [facility] Anticoagulation Episode Summary Anticoagulation Care Providers Provider Role Specialty Phone number Guanakito Reno MD [facility] [phone] Cal Mitchell is a 78 year old year old male patient being evaluated today for a Telemanagementvisit. Patient is currently on the following anticoagulant(s) Warfarin. Labs PT INR (no units) Date Value 09/28/2022 1.9 (self reporting) 01/24/2022 2.1 biotel 10/26/2021 2.1 (Biotel) INR Home CoaguChek (no units) Date Value 04/04/2024 6.0 03/07/2024 3.8 02/13/2024 2.2 Hemoglobin (g/dL) Date Value 03/25/2024 9.6 10/06/2020 12.3 Hematocrit (%) Date Value 03/25/2024 31.8 10/06/2020 39.0 Platelet Count (k/uL) Date Value 03/25/2024 158 10/06/2020 189 Creatinine (mg/dL) Date Value 03/25/2024 2.48 08/14/2023 2.30 01/18/2022 1.83 10/06/2020 1.60 07/18/2019 1.46 03/18/2019 1.51 Bilirubin, Total (mg/dL) Date Value 03/25/2024 0.3 10/06/2020 0.4 ALT (U/L) Date Value 03/25/2024 15 10/06/2020 16 AST (U/L) Date Value 03/25/2024 19 10/06/2020 17 Estimated Creatinine Clearance: 29.6 mL/min (A) (based on SCr of 2.48 mg/dL (H)). 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 [facility] Instructions* Patient Instructions* Guanakito Reno MD - 03/26/2024 5:00 PM EDT Stop lisinopril hctz Start lisinopril. Call if any shortness of breath or edema. Weigh daily. Call us if you gain more than 3-4 lbs in a 24 hour period Get carotid ultrasound Recheck labs end of this week or early next. documented in this encounterGerman Hospital06-11-2024 History of Present illness Narrative* Guanakito Reno MD - 03/26/2024 4:40 PM EDT Patient presents with: Follow Up HPI: Patient presents today for office visit for follow up. He was to have a repeat lab done in July to recheck his renal function and did not return. His renal function is returning. Using walker to ambulate. HLD: Continues on Atorvastatin 80 mg daily. Needs 30 day supply to [employer] while waiting for shipment from [employer]. No myalgias HTN: Continues on Zestoretic 20-12.5 mg daily Metoprolol 50 mg daily Does not monitor his BP Denies chest pain and shortness of breath Denies headaches and dizziness Denies palpitations and syncope Denies edema No further falls. No dizziness. No weight gain. Bp is very tight. Memory is the same. Unchanged. Continues on Namenda. PSYCH: Continues on Lexapro for anxiety and depression. No issues. Overall feeling pretty good. Followed by Cardiology, Dr. Reddy Last OV 03/25/24 Continues on anticoag for A-fib No bleeding or bruising issues. Ordered labs and echo. He is to see him back in six months. Bnp is only minimally up and he is not gaining weight. No definite signs of fluid overload. DM:las A1c was ok. No hypoglycemic spells. He remains on actos More anemic. ? Related to his renal function. No black or bloody stools. No bowel changes. Inr is followed by pharmacy. Has not followed with Dr Prescott for his carotids. Latest Ref Rng 03/25/2024 Protein, Total 6.3 - 8.0 g/dL 6.4 Albumin 3.9 - 4.9 g/dL 3.7 (L) Calcium 8.5 - 10.2 mg/dL 8.6 Bilirubin, Total 0.2 - 1.3 mg/dL 0.3 Alkaline Phosphatase 38 - 113 U/L 109 AST 14 - 40 U/L 19 ALT 10 - 54 U/L 15 Glucose 74 - 99 mg/dL 99 BUN 9 - 24 mg/dL 49 (H) Creatinine 0.73 - 1.22 mg/dL 2.48 (H) Sodium 136 - 144 mmol/L 141 Potassium 3.7 - 5.1 mmol/L 4.4 Chloride 98 - 107 mmol/L 113 (H) CO2 22 - 30 mmol/L 16 (L) Anion Gap 8 - 15 mmol/L 12 eGFR >=60 mL/min/1.73m 26 (L) WBC 3.70 - 11.00 k/uL 4.72 RBC 4.20 - 6.00 m/uL 3.11 (L) Hemoglobin 13.0 - 17.0 g/dL 9.6 (L) Hematocrit 39.0 - 51.0 % 31.8 (L) MCV 80.0 - 100.0 fL 102.3 (H) MCH 26.0 - 34.0 pg 30.9 MCHC 30.5 - 36.0 g/dL 30.2 (L) RDW-CV 11.5 - 15.0 % 14.9 Platelet Count 150 - 400 k/uL 158 MPV 9.0 - 12.7 fL 9.8 Absolute nRBC <0.01 k/uL <0.01 NT Pro BNP <450 pg/mL 501 (H) TSH 0.270 - 4.200 mIU/L 2.950 Legend: (L) Low (H) High MEDICATIONS: Current Outpatient Medications Medication Sig metoprolol succinate ER (TOPROL XL) 50 mg 24 hr tablet Take 1 tablet by mouth once daily. clopidogrel (PLAVIX) 75 mg tablet Take 1 tablet by mouth once daily. pioglitazone (ACTOS) 30 mg tablet Take 1 tablet by mouth once daily. melatonin 3 mg tablet Take 1 tablet by mouth daily at bedtime. atorvastatin (LIPITOR) 80 mg tablet Take 1 tablet by mouth daily at bedtime. For cholesterol. warfarin (COUMADIN) 5 mg tablet 7.5 mg on Monday, 5 mg all other days or as directed lisinopril-hydroCHLOROthiazide (ZESTORETIC) 20-12.5 mg per tablet Take 1 tablet by mouth every morning. memantine (NAMENDA) 10 mg tablet Take 1 tablet by mouth once daily. finasteride (PROSCAR) 5 mg tablet Take 1 tablet by mouth once daily. escitalopram oxalate (LEXAPRO) 10 mg tablet Take 1 tablet by mouth once daily. glimepiride (AMARYL) 2 mg tablet Take 1 tablet by mouth daily with breakfast. nitroglycerin sublingual (NITROQUICK) 0.4 mg SL tablet Dissolve 1 tablet under the tongue as needed. for chest pain,every 5 min x3 acetaminophen (TYLENOL) 500 mg tablet Take 500 mg by mouth every 8 hours as needed. blood sugar diagnostic (ONETOUCH ULTRA TEST) test strip Test blood sugar(s) one times daily. Dx: 250.00. Insulin: No Lancets (ONE TOUCH DELICA) Misc lancets Test blood sugar(s) one time daily. Dx: 250.00. Insulin: No Current Facility-Administered Medications Medication Dose Route Frequency perflutren lipid microspheres 1.3 mL in NaCl (PF) 0.9% 10 mL injection (DEFINITY) INTRAVENOUS DIRECTED PRN sodium chloride 0.9 % (flush) 10 mL (BD POSIFLUSH) 10 mL INTRAVENOUS DIRECTED PRN ALLERGIES: ALLERGIES No Known Allergies PAST MEDICAL HISTORY Diagnosis Date Actinic keratosis 10/20 BPH (benign prostatic hyperplasia) Chronic airway obstruction, not elsewhere classified 10/20 Diabetes (HCC) Diverticulosis of colon (without mention of hemorrhage) Ectatic thoracic aorta (HCC) 06/07/2018 06/07/18 Chest CTA: There is atherosclerotic calcification of the thoracic aorta with mild fusiform ectasia of the descending component measuring 3.2 x 3.1 cm Impacted cerumen 10/20 Obesity, unspecified 11/19 Other and unspecified hyperlipidemia 10/19 Other symptoms involving cardiovascular system 10/20 Peripheral vascular disease, unspecified (HCC) 10/20 R carotid Unspecified essential hypertension 04/18 PAST SURGICAL HISTORY Procedure Laterality Date ARTL CATHJ/CANNULJ MNTR/TRANSFUSION SPX PRQ 04-17-14 COLONOSCOPY FLX DX W/COLLJ SPEC WHEN PFRMD 40 years ago Colonoscopy COLONOSCOPY FLX DX W/COLLJ SPEC WHEN PFRMD 03/02/11 DSTRJ LESION PENIS SIMPLE CHEMICAL 10/20 PAST SURGICAL HISTORY OF Skin tag removals - bilateral axillary REMOVAL IMPACTED CERUMEN INSTRUMENTATION UNILAT 10/20 TEAEC W/PATCH GRF CAROTID VERTB SUBCLAV NECK INC 04-17-14 RIGHT FAMILY HISTORY Problem Relation Age of Onset Heart Mother of CHF Stroke Maternal Grandfather Social History Tobacco Use Smoking status: Former Packs/day: 2.00 Years: 10.00 Additional pack years: 0.00 Total pack years: 20.00 Types: Cigarettes Quit date: 12/05/1985 Years since quittin.3 Smokeless tobacco: Never Vaping Use Vaping Use: Never used Substance Use Topics Alcohol use: No Comment: none now; social in past Drug use: No Reviewed current medications, allergies, past medical history, surgical history, family history andsocial history today. REVIEW OF SYSTEMS All other reviewed and negative other than HPI. HEALTH MAINTENANCE: Reviewed health maintenance issues today and recommended the following in detail. Shingrix Vaccine(1 of 2) Never done Dilated Retinal Exam - reminded to follow up. Advance Directive Discussion due on 10/16/2023 Covid-19 Vaccine() due on 12/14/2023 HbA1C due on 02/13/2024 VITALS: BP (!) 98/46 Pulse 86 Ht 175.3 cm (5' 9") Wt 113.9 kg (251 lb) SpO2 98% BMI 37.07 kg/m Last 4 Encounter Wt Readings: Date: Wt: 03/25/2024 114.3 kg (252 lb) 12/22/2023 0 kg () 08/14/2023 120.7 kg (266 lb 3.2 oz) 02/13/2023 119.7 kg (264 lb) PHYSICAL EXAMINATION: General appearance: Well appearing, alert, in no acute distress, well-hydrated, well nourished. Skin: Skin color, texture, turgor normal, no suspicious rashes or lesions Lungs: Lungs clear to auscultation. No wheezing, rhonchi, rales Heart: murmur unchanged. Abdomen: Normal abdominal exam, Abdomen soft, non-tender. Bowel sounds normal. No masses, organomegaly Extremities: No deformities, edema, skin discoloration, clubbing or cyanosis. Good capillary refill. Musculoskeletal: No joint swelling, deformity, or tenderness ASSESSMENT/PLAN: 1. Essential hypertension - ICD9: 401.9, ICD10: I10 (primary diagnosis) - Controlled - Continue current medications - bp very tight. Given his worsening renal function. Change lisinopril hct to lisinopril. Follow closely. Recheck labs and renal us after stopping. May need to consider nephrology. No signs of fluid overload currently so I think he will do ok without a diuretic, however, gave them instructions for what to watch for including edema, shortness of breath and daily weights. 2. Hyperlipidemia, mixed - ICD9: 272.2, ICD10: E78.2 - Controlled - Continue current medications 3. Ectatic thoracic aorta (HCC) - ICD9: 447.71, ICD10: I77.810 - getting echo. Reminded to set up appt. 4. Hypertensive kidney disease with stage 3 chronic kidney disease, unspecified whether stage 3a or3b CKD (HCC) - ICD9: 403.90, 585.3, ICD10: I12.9, N18.30 - worsening numbers see above. - LISINOPRIL 20 MG TABLET 5. Paroxysmal atrial fibrillation (HCC) - ICD9: 427.31, ICD10: I48.0 - remains on meds. 6. History of carotid endarterectomy - ICD9: V45.89, ICD10: Z98.890 -overdue for recheck. - US CAROTID ARTERIES GRAY V[facility] 7. Type 2 diabetes mellitus with stage 3 chronic kidney disease, without long- term current use of insulin, unspecified whether stage 3a or 3b CKD (HCC) - ICD9: 250.40, 585.3, ICD10: E11.22, N18.30 - recheck A1c, ? Need actos. - HEMOGLOBIN A1C 8. 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 9. [facility] (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 - ICD9: V58.61, ICD10: Z79.01 - managed per pharmacy. 10. Obesity, Class II, BMI 35-39.9 - ICD9: 278.00, ICD10: E66.9 - will follow. 11. Renal insufficiency - ICD9: 593.9, ICD10: N28.9 - as above. Follow off of diuretic - BASIC METABOLIC PANEL - US KIDNEY/BLADDER 12. Anemia, unspecified type - ICD9: 285.9, ICD10: D64.9 - ? Related to ckd, however need to rule out other causes, especially since on anticoagulation. - COMPLETE BLOOD COUNT AND DIFFERENTIAL - IRON AND TIBC - VITAMIN B12 - FOLATE, SERUM - FERRITIN - IMMUNOCHEMICAL FECAL OCCULT BLOOD TEST Guanakito Reno MD Recheck in two weeks or prn. documented in this encounterGerman Hospital06-10-2024 History of Present illness Narrative* Pam Reddy MD - 03/25/2024 5:19 PM EDT Images from the original note were not included. Pam Reddy MD Interventional Cardiology [address] [place] [address] [phone] Chief Complaint Patient presents with: Follow Up HISTORY OF PRESENT ILLNESS: Mr. Mitchell is a 78 year old male seen in my office for assessment management of aortic valve stenosis patient had prior history of paroxysmal atrial fibrillation maintained on anticoagulation currently in sinus rhythm most recent echocardiography shows low-flow low gradient severe aortic stenosis patient remained asymptomatic but he is very limited in terms of his physical activity denies any chest pain or shortness of breath no syncope or presyncope no clinical evidence of congestive heart failure most recent echocardiography shows normal ejection fraction 65% with a peak gradient of 42 mean of 20 and aortic valve area of 0.72 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 Cardiac Risk Factors age (male over 45, female over 55), hyperlipidemia, hypertension, family history of CAD PAST MEDICAL HISTORY Diagnosis Date Actinic keratosis 10/20 BPH (benign prostatic hyperplasia) Chronic airway obstruction, not elsewhere classified 10/20 Diabetes ([facility]) Diverticulosis of colon (without mention of hemorrhage) Ectatic thoracic aorta ([facility]) 06/07/2018 06/07/18 Chest CTA: There is atherosclerotic calcification of the thoracic aorta with mild fusiform ectasia of the descending component measuring 3.2 x 3.1 cm Impacted cerumen 10/20 Obesity, unspecified 11/19 Other and unspecified hyperlipidemia 10/19 Other symptoms involving cardiovascular system 10/20 Peripheral vascular disease, unspecified (HCC) 10/20 R carotid Unspecified essential hypertension 04/18 PAST SURGICAL HISTORY Procedure Laterality Date ARTL CATHJ/CANNULJ MNTR/TRANSFUSION SPX PRQ 04-17-14 COLONOSCOPY FLX DX W/COLLJ SPEC WHEN PFRMD 40 years ago Colonoscopy COLONOSCOPY FLX DX W/COLLJ SPEC WHEN PFRMD 03/02/11 DSTRJ LESION PENIS SIMPLE CHEMICAL 10/20 PAST SURGICAL HISTORY OF Skin tag removals - bilateral axillary REMOVAL IMPACTED CERUMEN INSTRUMENTATION UNILAT 10/20 TEAEC W/PATCH GRF CAROTID VERTB SUBCLAV NECK INC 04-17-14 RIGHT FAMILY HISTORY Problem Relation Age of Onset Heart Mother of CHF Stroke Maternal Grandfather Social History Tobacco Use Smoking status: Former Packs/day: 2.00 Years: 10.00 Additional pack years: 0.00 Total pack years: 20.00 Types: Cigarettes Quit date: 12/05/1985 Years since quittin.3 Smokeless tobacco: Never Vaping Use Vaping Use: Never used Substance Use Topics Alcohol use: No Comment: none now; social in past Drug use: No ALLERGIES No Known Allergies Medications: Current Outpatient Medications Medication Sig Dispense Refill metoprolol succinate ER (TOPROL XL) 50 mg 24 hr tablet Take 1 tablet by mouth once daily. 90 tablet3 clopidogrel (PLAVIX) 75 mg tablet Take 1 tablet by mouth once daily. 90 tablet 1 pioglitazone (ACTOS) 30 mg tablet Take 1 tablet by mouth once daily. 90 tablet 3 melatonin 3 mg tablet Take 1 tablet by mouth daily at bedtime. 60 tablet 1 atorvastatin (LIPITOR) 80 mg tablet Take 1 tablet by mouth daily at bedtime. For cholesterol. 90 tablet 3 warfarin (COUMADIN) 5 mg tablet 7.5 mg on Monday, 5 mg all other days or as directed 100 tablet 5 lisinopril-hydroCHLOROthiazide (ZESTORETIC) 20-12.5 mg per tablet Take 1 tablet by mouth every morning. 90 tablet 1 memantine (NAMENDA) 10 mg tablet Take 1 tablet by mouth once daily. 90 tablet 3 finasteride (PROSCAR) 5 mg tablet Take 1 tablet by mouth once daily. 90 tablet 3 escitalopram oxalate (LEXAPRO) 10 mg tablet Take 1 tablet by mouth once daily. 90 tablet 3 glimepiride (AMARYL) 2 mg tablet Take 1 tablet by mouth daily with breakfast. 90 tablet 0 nitroglycerin sublingual (NITROQUICK) 0.4 mg SL tablet Dissolve 1 tablet under the tongue as needed. for chest pain,every 5 min x3 1 Bottle of 25 3 acetaminophen (TYLENOL) 500 mg tablet Take 500 mg by mouth every 8 hours as needed. blood sugar diagnostic (ONETOUCH ULTRA TEST) test strip Test blood sugar(s) one times daily. Dx: 250.00. Insulin: No 150 Strip 3 Lancets (ONE TOUCH DELICA) [facility] lancets Test blood sugar(s) one time daily. Dx: 250.00. Insulin: No1 Each 0 Current Facility-Administered Medications Medication Dose Route Frequency Provider Last Rate Last Admin perflutren lipid microspheres 1.3 mL in NaCl (PF) 0.9% 10 mL injection (DEFINITY) INTRAVENOUS DIRECTED PRPam Fabian MD sodium chloride 0.9 % (flush) 10 mL (BD POSIFLUSH) 10 mL INTRAVENOUS DIRECTED PRPam Fabian MD Review of Systems Constitutional: Negative for chills, diaphoresis, fever, malaise/fatigue and weight loss. HENT: Negative for congestion, ear discharge, ear pain, hearing loss, nosebleeds, sinus pain, sore throat and tinnitus. Eyes: Negative for blurred vision, double vision, photophobia, pain, discharge and redness. Respiratory: Negative for cough, hemoptysis, sputum production, shortness of breath, wheezing and stridor. Cardiovascular: Negative for chest pain, palpitations, orthopnea, claudication, leg swelling and PND. Gastrointestinal: Negative for abdominal pain, blood in stool, constipation, diarrhea, heartburn, melena, nausea and vomiting. Genitourinary: Negative for dysuria, flank pain, frequency, hematuria and urgency. Musculoskeletal: Negative for back pain, falls, joint pain, myalgias and neck pain. Skin: Negative for itching and rash. Neurological: Negative for dizziness, tingling, tremors, sensory change, speech change, focal weakness, seizures, loss of consciousness, weakness and headaches. Endo/Heme/Allergies: Negative for environmental allergies and polydipsia. Does not bruise/bleed easily. Psychiatric/Behavioral: Negative for depression, hallucinations, memory loss, substance abuse and suicidal ideas. The patient is not nervous/anxious and does not have insomnia. Physical Examination: Vitals:BP 116/69 Pulse 66 Wt 252 lb (114.3kg) SpO2 96% BP w/Orthostatic Vitals Date and Time Orthostatic BP Orthostatic Pulse BP Pulse BP Position BP Site BP Cuff Size 03/25/24 1452 -- -- 116/69 66 -- -- -- Last 2 Encounter Wt Readings: Date: Wt: 03/25/2024 114.3 kg (252 lb) 12/22/2023 0 kg () Physical Exam Constitutional: General: He is not in acute distress. Appearance: He is not diaphoretic. HENT: Head: Normocephalic and atraumatic. Right Ear: External ear normal. Left Ear: External ear normal. Nose: Nose normal. Mouth/Throat: Mouth: Mucous membranes are moist. Eyes: General: Right eye: No discharge. Left eye: No discharge. Conjunctiva/sclera: Conjunctivae normal. Pupils: Pupils are equal, round, and reactive to light. Cardiovascular: Rate and Rhythm: Normal rate and regular rhythm. Heart sounds: S1 normal and S2 normal. Murmur heard. No friction rub. No gallop. No S3 or S4 sounds. Pulmonary: Effort: Pulmonary effort is normal. No respiratory distress. Breath sounds: Normal breath sounds. No wheezing or rales. Chest: Chest wall: No tenderness. Abdominal: General: Abdomen is flat. Musculoskeletal: General: Normal range of motion. Cervical back: Normal range of motion and neck supple. Skin: General: Skin is warm and dry. Neurological: Mental Status: He is alert and oriented to person, place, and time. Psychiatric: Mood and Affect: Mood normal. Thought Content: Thought content normal. Pertinent Labs: CBC: Hemoglobin (g/dL) Date Value 03/25/2024 9.6 10/06/2020 12.3 Hematocrit (%) Date Value 03/25/2024 31.8 10/06/2020 39.0 WBC (k/uL) Date Value 03/25/2024 4.72 10/06/2020 5.94 Platelet Count (k/uL) Date Value 03/25/2024 158 10/06/2020 189 BMP: Glucose (mg/dL) Date Value 03/25/2024 99 10/06/2020 121 Potassium (mmol/L) Date Value 03/25/2024 4.4 10/06/2020 3.8 Sodium (mmol/L) Date Value 03/25/2024 141 10/06/2020 138 Chloride (mmol/L) Date Value 03/25/2024 113 10/06/2020 103 CO2 (mmol/L) Date Value 03/25/2024 16 10/06/2020 25 Creatinine (mg/dL) Date Value 03/25/2024 2.48 10/06/2020 1.60 BUN (mg/dL) Date Value 03/25/2024 49 10/06/2020 26 Anion Gap (mmol/L) Date Value 03/25/2024 12 10/06/2020 10 Calcium (mg/dL) Date Value 10/06/2020 9.0 Calcium, Total (mg/dL) Date Value 03/25/2024 8.6 INR: Lipid Profile: Cholesterol, Total Date Value Ref Range Status 08/14/2023 165 <200 mg/dL Final Comment: <200 mg/dL, Desirable 200-239 mg/dL, Borderline high >239 mg/dL, High HDL Cholesterol Date Value Ref Range Status 08/14/2023 44 >39 mg/dL Final Comment: 40-59 mg/dL, Acceptable >59 mg/dL, High: Negative risk factor for coronary heart disease <40 mg/dL, Low: Positive risk factor for coronary heart disease LDL Cholesterol Date Value Ref Range Status 08/14/2023 100 (H) <100 mg/dL Final Comment: <100 mg/dL, Optimal 100-129 mg/dL, Near optimal/above optimal 130-159 mg/dL, Borderline high 160-189 mg/dL, High >189 mg/dL, Very high Secondary prevention optimal LDL Cholesterol levels are recommended to be < 70 mg/dL Triglyceride Date Value Ref Range Status 08/14/2023 106 <150 mg/dL Final Comment: <150 mg/dL, Normal 150-199 mg/dL, Borderline high 200-499 mg/dL, High >499 mg/dL, Very high Hemoglobin A1C: No results found for: "HGBA1C" TSH: No results found for: "TSHREFL" Prior Cardiac Testing none Assessment and Plan: 78 years old gentleman with 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 Syncope, unspecified syncope type - ICD9: 780.2, ICD10: R55 (primary diagnosis) Prior history of syncope likely physical fall no further presyncope or syncope - ECG COMPLETE - ECHO - PERFLUTREN LIPID MICROSPHERES 1.1 MG/ML INJECTION IN NS 10 ML - SODIUM CHLORIDE 0.9 % (FLUSH) INJECTION SYRINGE - COMPLETE BLOOD COUNT - COMPREHENSIVE METABOLIC PANEL - NT PRO BNP 2. Aortic valve disorder - ICD9: 424.1, ICD10: I35.9 Low-flow low gradient aortic stenosis repeat echo to assess the aortic valve. Cardiac BNP Will monitor him here in 6 months for follow-up on progression - ECG COMPLETE - ECHO - PERFLUTREN LIPID MICROSPHERES 1.1 MG/ML INJECTION IN NS 10 ML - SODIUM CHLORIDE 0.9 % (FLUSH) INJECTION SYRINGE - COMPLETE BLOOD COUNT - COMPREHENSIVE METABOLIC PANEL - NT PRO BNP - THYROID STIMULATING HORMONE 3. Paroxysmal atrial fibrillation (HCC) - ICD9: 427.31, ICD10: I48.0 Maintained on anticoagulation - ECG COMPLETE - THYROID STIMULATING HORMONE 4. Ectatic thoracic aorta (HCC) - ICD9: 447.71, ICD10: I77.810 Stable no progression 5. Type 2 diabetes mellitus with stage 3a chronic kidney disease, without long- term current use of insulin (HCC) - ICD9: 250.40, 585.3, ICD10: E11.22, N18.31 - Controlled - Continue current medications - eGFR: 26 Stable - Counseled on avoiding NSAIDs, adequate hydration Pam Reddy MD Follow up plannin months Electronically signed by Pam Reddy MD on March 25, 2024, 5:19 PM The above note was partially created using a dictation recognition software. A reasonable attempt has been made to correct any errors. documented in this encounterGerman Hospital05-24-2024 History of Present illness Narrative* Melania Galindo RN - 03/08/2024 8:42 AM EDTSummary: Medication adherence and suspected condition review per request of payor ACM LUIS RN Reason for review or outreach: Medication Adherence Review Details: Cholesterol and Hypertension Suspect Condition Review per request of payer= FYI/REQUESTED ACTION: Summary / Findings: Atorvastatin 60 mg tablet last renewed 09/15/24(100 day quantity) Lisinopril/HCTZ tablet 20mg-12.5mg last renewed 10/17/23 (100 day quantity) Patient identified by name and date of . Patient Attributed To: E Payer: [employer] Action Taken: Data submitted to [employer] message to patient Notation made to upcoming appointment notes requesting provider follow up Contact made with patient: No, Chart review only. Melania Galindo RN documented in this encounterGerman Hospital05-23-2024 Telephone encounter Note * Telephone Encounter - Jimmy Carrizales [facility] - 03/07/2024 11:54 AM EDT [facility] Anticoagulation Episode Summary Anticoagulation Care Providers Provider Role Specialty Phone number Guanakito Reno MD [facility] Family Medicine [phone] Cal Mitchell is a 78 year old year old male patient being evaluated today for a Telemanagementvisit. Patient is currently on the following anticoagulant(s) Warfarin. Labs PT INR (no units) Date Value 09/28/2022 1.9 (self reporting) 01/24/2022 2.1 biotel 10/26/2021 2.1 (Biotel) INR Home CoaguChek (no units) Date Value 03/07/2024 3.8 02/13/2024 2.2 01/12/2024 4.2 Hemoglobin (g/dL) Date Value 08/14/2023 11.7 10/06/2020 12.3 Hematocrit (%) Date Value 08/14/2023 38.6 10/06/2020 39.0 Platelet Count (k/uL) Date Value 08/14/2023 144 10/06/2020 189 Creatinine (mg/dL) Date Value 08/14/2023 2.30 01/18/2022 1.83 12/21/2021 1.91 10/06/2020 1.60 07/18/2019 1.46 03/18/2019 1.51 Bilirubin, Total (mg/dL) Date Value 08/14/2023 0.5 10/06/2020 0.4 ALT (U/L) Date Value 08/14/2023 21 10/06/2020 16 AST (U/L) Date Value 08/14/2023 26 10/06/2020 17 CrCl cannot be calculated (Patient's most recent lab result is older than the maximum 180 days allowed.). 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: [facility] (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 Paroxysmal atrial fibrillation (hcc) Anticoagulation Episode Summary Current INR goal: 2.0-3.0 Assessment: INR result of 3.8 is SUPRAtherapeutic due to: unknown cause - did not speak to patient Plan: Current Warfarin Dosing As of 03/07/2024 Full warfarin instructions: 03/07: Hold; Otherwise 7.5 mg every Tue; 5 mg all other days Left voice message Advised patient to hold 1 dose then continue current regimen Next home INR check scheduled on 03/21/2024 Jimmy Carrizales RPh Clinical Pharmacist, Pharmacy Anticoagulation Clinic [facility] Pager: [phone]. [facility]05-[facility] Miscellaneous Notes* Telephone Encounter - Jimmy Carrizales RPh - 03/07/2024 11:54 AM EDT [facility] Anticoagulation Episode Summary Anticoagulation Care Providers Provider Role Specialty Phone number Guanakito Reno MD [facility] Medicine [phone] Cal Mitchell is a 78 year old year old male patient being evaluated today for a Telemanagementvisit. Patient is currently on the following anticoagulant(s) Warfarin. Labs PT INR (no units) Date Value 09/28/2022 1.9 (self reporting) 01/24/2022 2.1 biotel 10/26/2021 2.1 (Biotel) INR Home CoaguChek (no units) Date Value 03/07/2024 3.8 02/13/2024 2.2 01/12/2024 4.2 Hemoglobin (g/dL) Date Value 08/14/2023 11.7 10/06/2020 12.3 Hematocrit (%) Date Value 08/14/2023 38.6 10/06/2020 39.0 Platelet Count (k/uL) Date Value 08/14/2023 144 10/06/2020 189 Creatinine (mg/dL) Date Value 08/14/2023 2.30 01/18/2022 1.83 12/21/2021 1.91 10/06/2020 1.60 07/18/2019 1.46 03/18/2019 1.51 Bilirubin, Total (mg/dL) Date Value 08/14/2023 0.5 10/06/2020 0.4 ALT (U/L) Date Value 08/14/2023 21 10/06/2020 16 AST (U/L) Date Value 08/14/2023 26 10/06/2020 17 CrCl cannot be calculated (Patient's most recent lab result is older than the maximum 180 days allowed.). 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: [facility] (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 Paroxysmal atrial fibrillation (hcc) Anticoagulation Episode Summary Current INR goal: 2.0-3.0 Assessment: INR result of 3.8 is SUPRAtherapeutic due to: unknown cause - did not speak to patient Plan: Current Warfarin Dosing As of 03/07/2024 Full warfarin instructions: 03/07: Hold; Otherwise 7.5 mg every Tue; 5 mg all other days Left voice message Advised patient to hold 1 dose then continue current regimen Next home INR check scheduled on 03/21/2024 Jimmy Carrizales bobbi Clinical Pharmacist, Pharmacy Anticoagulation Clinic Pharmacy [facility] Pager: [phone]. documented in this encounterGerman Hospital05-01-2024 Telephone encounter Note * Telephone Encounter - Ruthie Cuevas RPh - 02/14/2024 9:04 AM EDT [facility] Anticoagulation Episode Summary Anticoagulation Care Providers Provider Role Specialty Phone number Guanakito Reno MD [facility] [phone] Cal Mitchell is a 78 year old year old male patient being evaluated today for a Telemanagementvisit. Patient is currently on the following anticoagulant(s) Warfarin. Labs PT INR (no units) Date Value 09/28/2022 1.9 (self reporting) 01/24/2022 2.1 biotel 10/26/2021 2.1 (Biotel) INR Home CoaguChek (no units) Date Value 02/13/2024 2.2 01/12/2024 4.2 12/20/2023 2.6 Hemoglobin (g/dL) Date Value 08/14/2023 11.7 10/06/2020 12.3 Hematocrit (%) Date Value 08/14/2023 38.6 10/06/2020 39.0 Platelet Count (k/uL) Date Value 08/14/2023 144 10/06/2020 189 Creatinine (mg/dL) Date Value 08/14/2023 2.30 01/18/2022 1.83 12/21/2021 1.91 10/06/2020 1.60 07/18/2019 1.46 03/18/2019 1.51 Bilirubin, Total (mg/dL) Date Value 08/14/2023 0.5 10/06/2020 0.4 ALT (U/L) Date Value 08/14/2023 21 10/06/2020 16 AST (U/L) Date Value 08/14/2023 26 10/06/2020 17 CrCl cannot be calculated (Patient's most recent lab result is older than the maximum 180 days allowed.). 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 Advised patient to continue current weekly dose as noted above Next home INR check scheduled on 02/28/2024 Ruthie Cuevas RPh Clinical Pharmacist, Pharmacy Anticoagulation Clinic Pharmacy [facility] Pager: [phone]. [facility] Miscellaneous Notes* Telephone Encounter - Ruthie Cuevas RPh - 02/14/2024 9:04 AM EDT [facility] Anticoagulation Episode Summary Anticoagulation Care Providers Provider Role Specialty Phone number Guanakito Reno MD [facility] Family Medicine [phone] Cal Mitchell is a 78 year old year old male patient being evaluated today for a Telemanagementvisit. Patient is currently on the following anticoagulant(s) Warfarin. Labs PT INR (no units) Date Value 09/28/2022 1.9 (self reporting) 01/24/2022 2.1 biotel 10/26/2021 2.1 (Biotel) INR Home CoaguChek (no units) Date Value 02/13/2024 2.2 01/12/2024 4.2 12/20/2023 2.6 Hemoglobin (g/dL) Date Value 08/14/2023 11.7 10/06/2020 12.3 Hematocrit (%) Date Value 08/14/2023 38.6 10/06/2020 39.0 Platelet Count (k/uL) Date Value 08/14/2023 144 10/06/2020 189 Creatinine (mg/dL) Date Value 08/14/2023 2.30 01/18/2022 1.83 12/21/2021 1.91 10/06/2020 1.60 07/18/2019 1.46 03/18/2019 1.51 Bilirubin, Total (mg/dL) Date Value 08/14/2023 0.5 10/06/2020 0.4 ALT (U/L) Date Value 08/14/2023 21 10/06/2020 16 AST (U/L) Date Value 08/14/2023 26 10/06/2020 17 CrCl cannot be calculated (Patient's most recent lab result is older than the maximum 180 days allowed.). 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: [facility] (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 Paroxysmal atrial fibrillation (hcc) Anticoagulation Episode Summary Current INR goal: 2.0-3.0 Assessment: INR result of 2.2 is therapeutic Plan: Current Warfarin Dosing As of 02/14/2024 Full warfarin instructions: 7.5 mg every Tu; 5 mg all other days Left voice message For . Advised patient to continue current weekly dose as noted above Next home INR check scheduled on 02/28/2024 Ruthie Cuevas RPh Clinical Pharmacist, Pharmacy Anticoagulation Clinic Pharmacy [facility] Pager: [phone]. documented in this encounterGerman Hospital04-03-2024 Miscellaneous Notes* Telephone Encounter - Darrell Meyer LPN - 01/17/2024 3:50 PM EDT *Atorvastatin was sent to pharmacy on 11/06/23 #90 with 3 refills. Pt is not due for atorvastatin. Darrell Meyer LPN * Telephone Encounter - Betzy Colvin - 01/17/2024 3:16 PM EDT Patient has been identified by name and date of : Patient phones for refill(s): Requested Prescriptions Pending Prescriptions Disp Refills metoprolol succinate ER (TOPROL XL) 50 mg 24 hr tablet 90 tablet 3 Sig: Take 1 tablet by mouth once daily. clopidogrel (PLAVIX) 75 mg tablet 90 tablet 1 Sig: Take 1 tablet by mouth once daily. atorvastatin (LIPITOR) 80 mg tablet 90 tablet 3 Sig: Take 1 tablet by mouth daily at bedtime. For cholesterol. Date of last office visit in primary care: 12/22/2023 Date of next office visit in primary care: 03/26/2024 Please advise. Thank you. Betzy Colvin. documented in this encounterGerman Hospital04-03-2024 Miscellaneous Notes* Telephone Encounter - Betzy Colvin - 01/17/2024 3:22 PM EDT Patient's daughter calling to request medication that is on patient list pioglitazone (ACTOS) 15 mg tablet Please send to [facility]. documented in this encounterGerman Hospital04-01-2024 Miscellaneous Notes* Telephone Encounter - Alejandro Molina [facility] - 01/15/2024 10:32 AM EDT [facility] Anticoagulation Episode Summary Anticoagulation Care Providers Provider Role Specialty Phone number Guanakito Reno MD [facility] Family Medicine [phone] Cal Mitchell is a 78 year old year old male patient being evaluated today for a Telemanagementvisit. Patient is currently on the following anticoagulant(s) Warfarin. Labs PT INR (no units) Date Value 09/28/2022 1.9 (self reporting) 01/24/2022 2.1 biotel 10/26/2021 2.1 (Biotel) INR Home CoaguChek (no units) Date Value 01/12/2024 4.2 12/20/2023 2.6 12/02/2023 1.1 CrCl cannot be calculated (Unknown ideal weight.). 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: Anticoagulation Episode Summary Current INR goal: 2.0-3.0 Assessment: INR result of 4.2 is SUPRAtherapeutic due to: unknown cause - did not speak to patient Plan: Current Warfarin Dosing As of 01/15/2024 Full warfarin instructions: 01/14: Hold; Otherwise 7.5 mg every Tue; 5 mg all other days Left voice message Advised patient to hold 1 dose then continue current regimen Next INR check due on 01/29/2024 Patient instructed to call [facility] at [phone] with any questionsor concerns. Alejandro Molina RPh Clinical Pharmacist, Pharmacy Anticoagulation Clinic Pharm[facility] Pager: [phone] documented in this encounterGerman Hospital03-08-2024 Instructions* Patient Instructions* Carolina Landeros APRN.CNS - 12/22/2023 3:30 PM EST 1) Telfa dressing change daily 2) Letter for [facility] 3) Follow up in 4) Melatonin 3mg qhs and may repeat once through night if needed documented in this encounterGerman Hospital03-08-2024 History of Present illness Narrative* Carolina Landeros APRN.CNS - 12/22/2023 3:10 PM EST This is a 78 year old male who presents today with: Patient presents with: Laceration Fall HISTORY OF PRESENT ILLNESS: Cal Mitchell is a 78 year old male. Patient presents with: Laceration Fall Fell against bed frame and suffered a nasty skin tear down his left lateral forearm. Abrasion with shredded skin tear- superficial. Thinks he got feet tangled. Having trouble sleeping through night. Did not hit head. No weight loss or gain No fever but some occasional chills Falls asleep around 4-5 am- gets up at 2-3 pm Eating ok. No bowel trouble. No burning with urination or blood in urine PAST MEDICAL HISTORY: PAST MEDICAL HISTORY Diagnosis Date Actinic keratosis 10/20 BPH (benign prostatic hyperplasia) Chronic airway obstruction, not elsewhere classified 10/20 Diabetes (HCC) Diverticulosis of colon (without mention of hemorrhage) Ectatic thoracic aorta (HCC) 06/07/2018 06/07/18 Chest CTA: There is atherosclerotic calcification of the thoracic aorta with mild fusiform ectasia of the descending component measuring 3.2 x 3.1 cm Impacted cerumen 10/20 Obesity, unspecified 11/19 Other and unspecified hyperlipidemia 10/19 Other symptoms involving cardiovascular system 10/20 Peripheral vascular disease, unspecified (HCC) 10/20 R carotid Unspecified essential hypertension 04/18 PAST SURGICAL HISTORY Procedure Laterality Date ARTL CATHJ/CANNULJ MNTR/TRANSFUSION SPX PRQ 04-17-14 COLONOSCOPY FLX DX W/COLLJ SPEC WHEN PFRMD 40 years ago Colonoscopy COLONOSCOPY FLX DX W/COLLJ SPEC WHEN PFRMD 03/02/11 DSTRJ LESION PENIS SIMPLE CHEMICAL 10/20 PAST SURGICAL HISTORY OF Skin tag removals - bilateral axillary REMOVAL IMPACTED CERUMEN INSTRUMENTATION UNILAT 10/20 TEAEC W/PATCH GRF CAROTID VERTB SUBCLAV NECK INC 04-17-14 RIGHT ALLERGIES Patient has no known allergies. MEDICATIONS Current Outpatient Medications Medication Sig atorvastatin (LIPITOR) 80 mg tablet Take 1 tablet by mouth daily at bedtime. For cholesterol. warfarin (COUMADIN) 5 mg tablet 7.5 mg on Monday, 5 mg all other days or as directed warfarin (COUMADIN) 5 mg tablet 7.5 mg on Monday, 5 mg all other days or as directed clopidogrel (PLAVIX) 75 mg tablet Take 1 tablet by mouth once daily. lisinopril-hydroCHLOROthiazide (ZESTORETIC) 20-12.5 mg per tablet Take 1 tablet by mouth every morning. memantine (NAMENDA) 10 mg tablet Take 1 tablet by mouth once daily. metoprolol succinate ER (TOPROL XL) 50 mg 24 hr tablet Take 1 tablet by mouth once daily. finasteride (PROSCAR) 5 mg tablet Take 1 tablet by mouth once daily. escitalopram oxalate (LEXAPRO) 10 mg tablet Take 1 tablet by mouth once daily. pioglitazone (ACTOS) 30 mg tablet Take 1 tablet by mouth once daily. glimepiride (AMARYL) 2 mg tablet Take 1 tablet by mouth daily with breakfast. acetaminophen (TYLENOL) 500 mg tablet Take 500 mg by mouth every 8 hours as needed. atorvastatin (LIPITOR) 80 mg tablet Take 1 tablet by mouth daily at bedtime. For cholesterol. nitroglycerin sublingual (NITROQUICK) 0.4 mg SL tablet Dissolve 1 tablet under the tongue as needed. for chest pain,every 5 min x3 blood sugar diagnostic (Set.fm ULTRA TEST) test strip Test blood sugar(s) one times daily. Dx: 250.00. Insulin: No Lancets (ONE TOUCH DELICA) [facility] blood sugar(s) one time daily. Dx: 250.00. Insulin: No Current Facility-Administered Medications Medication Dose Route Frequency perflutren lipid microspheres 1.3 mL in NaCl (PF) 0.9% 10 mL injection (DEFINITY) INTRAVENOUS DIRECTED PRN sodium chloride 0.9 % (flush) 10 mL (BD POSIFLUSH) 10 mL INTRAVENOUS DIRECTED PRN FAMILY HISTORY Problem Relation Age of Onset Heart Mother of CHF Stroke Maternal Grandfather Social History Tobacco Use Smoking status: Former Packs/day: 2.00 Years: 10.00 Additional pack years: 0.00 Total pack years: 20.00 Types: Cigarettes Quit date: 12/05/1985 Years since quittin.0 Smokeless tobacco: Never Vaping Use Vaping Use: Never used Substance Use Topics Alcohol use: No Comment: none now; social in past Drug use: No EXAM: BP 122/60 Pulse 76 Temp 36.6 C (97.8 F) (Left Tympanic) Resp 18 SpO2 99% PHYSICAL EXAM: General Appearance: Well appearing, alert, in no acute distress, well-hydrated, well nourished.. Skin: Skin color, texture, turgor normal, no suspicious rashes or lesions, left forearm skin tear- superficial- flaps shredded. Head: Normocephalic, no masses, lesions, tenderness or abnormalities. Lungs: Lungs clear to auscultation. No wheezing, rhonchi, rales.. Heart: RRR without murmur, gallop, or rubs. No ectopy. Abdomen: Normal abdominal exam, Abdomen soft, non-tender. Bowel sounds normal. No masses, organomegaly. ASSESSMENT/PLAN: 1. Abrasion of arm, left, initial encounter - ICD9: 913.0, ICD10: S40.812A - Cleaned and Vaseline applied on gauze, laurel to hold it - Telfa dressings ordered - Adult Daycare letter written 2. Insomnia- would like try try OTC melatonin Follow up in 3m Discussed treatment plan and patient voices understanding. Patient's questions answered appropriately. Medications and potential side effects were discussed and patient voices understanding. Return to the office as scheduled or as needed for worsening/no improvement. Carolina Landeros APRN.CNS The patient indicates understanding of these issues and agrees with the plan. documented in this encounterGerman Hospital03-07-2024 Miscellaneous Notes* Telephone Encounter - Teresa Alexis RN - 12/21/2023 6:36 PM EST Spoke with patient's daughter. She says patient did not his head. He hit his arm on the side rail of his bed. She gave him a shower and says he has no other bumps, cuts nor bruises anywhere on his body. She washed the wound on his left forearm and applied antibiotic ointment and Telfa dressing per Home Care protocol guidelines. She says again it is a superficial skin tear type wound and she was requesting an appointment for aprovider to take a look at this to make sure it can be treated at home because he is diabetic. She declines ER visit. She states if provider unable to see patient, she will just continue with home care. Teresa Alexis RN * Telephone Encounter - Geovanna Hinds Ma - 12/21/2023 5:07 PM EST Please see provider, Elma Landeros routing comment: This patient needs a CT of the head being on blood thinners. Also, cannot repair wound after 24 hours. Should go to ER." Did pt hit his head? We will not be able to repair wound in office tomorrow. Left message for daughter to call back. Geovanna Hinds Ma * Telephone Encounter - Teresa Alexis RN - 12/21/2023 2:42 PM EST Patient's daughter calling with request for appointment for skin laceration due to patient lost balance and fell into the side rail of his bed today. She describes the wound as being superficial (skin only) measuring about 1 inch wide x 5 inches long. She says he had some bleeding which has stopped. He is on Warfarin and is diabetic. His last tetanus vaccine was on 04/22/21. No same day appointments available at this time. Scheduled with Carolina Landeros NP on 12/22/23 per daughter's request. Reviewed triage protocol guidelines with patient's daughter. She verbalizes understanding. Disposition: Home Care. She still wants appointment and will follow home care guidelines until seen. Advised EC visit today if wants to be seen sooner. Teresa Alexis RN Reason for Disposition Minor cut or scratch Answer Assessment - Initial Assessment Questions 1. APPEARANCE of INJURY: laceration left forearm 2. SIZE: daughter says it is about one inch wide and 5 inches long 3. BLEEDING: not bleeding. He takes Warfarin 4. LOCATION: left forearm 5. ONSET: one hour ago 6. MECHANISM: fell, lost balance and scraped arm on bedrail 7. TETANUS: 04/22/21 Protocols used: Cuts and [id number] documented in this encounterGerman Hospital03-07-2024 Miscellaneous Notes* Telephone Encounter - Jimmy Carrizales, [facility] - 12/21/2023 9:03 AM EST [facility] Anticoagulation Episode Summary Anticoagulation Care Providers Provider Role Specialty Phone number Guanakito Reno MD [facility] Medicine [phone] Cal Mitchell is a 78 year old year old male patient being evaluated today for a Telemanagementvisit. Patient is currently on the following anticoagulant(s) Warfarin. Labs PT INR (no units) Date Value 09/28/2022 1.9 (self reporting) 01/24/2022 2.1 biotel 10/26/2021 2.1 (Biotel) INR Home CoaguChek (no units) Date Value 12/20/2023 2.6 12/02/2023 1.1 11/07/2023 1.6 Hemoglobin (g/dL) Date Value 08/14/2023 11.7 10/06/2020 12.3 Hematocrit (%) Date Value 08/14/2023 38.6 10/06/2020 39.0 Platelet Count (k/uL) Date Value 08/14/2023 144 10/06/2020 189 Creatinine (mg/dL) Date Value 08/14/2023 2.30 01/18/2022 1.83 12/21/2021 1.91 10/06/2020 1.60 07/18/2019 1.46 03/18/2019 1.51 Bilirubin, Total (mg/dL) Date Value 08/14/2023 0.5 10/06/2020 0.4 ALT (U/L) Date Value 08/14/2023 21 10/06/2020 16 AST (U/L) Date Value 08/14/2023 26 10/06/2020 17 CrCl cannot be calculated (Unknown ideal weight.). 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 documented in this encounterGerman Hospital02-19-2024 Miscellaneous Notes* Telephone Encounter - Daniel JansenSpray Drier Operator HelperAshley Granados - 12/04/2023 11:53 AM EST PATIENT CALL Received call from Summer with [facility] to report home meter result for patient. [facility] hasalready addressed this result (see below); nothing further needed at this time. Ashley Sanchez CPhT (Home And School Visitor) Pharmacy Anticoagulation Clinic * Telephone Encounter - Alejandro Molina RP - 12/04/2023 9:44 AM EST [facility] Anticoagulation Episode Summary Anticoagulation Care Providers Provider Role Specialty Phone number Guanakito Reno MD Responsible [facility] [phone] Cal Mitchell is a 78 year old year old male patient being evaluated today for a Telemanagementvisit. Patient is currently on the following anticoagulant(s) Warfarin. Labs PT INR (no units) Date Value 09/28/2022 1.9 (self reporting) 01/24/2022 2.1 biotel 10/26/2021 2.1 (Biotel) INR Home CoaguChek (no units) Date Value 12/02/2023 1.1 11/07/2023 1.6 10/06/2023 2.1 CrCl cannot be calculated (Unknown ideal weight.). 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: Anticoagulation Episode Summary Current INR goal: 2.0-3.0 Assessment: INR result of 1.1 is SUBtherapeutic due to: unknown cause - did not speak to patient Plan: Current Warfarin Dosing As of 12/04/2023 Full warfarin instructions: 12/04: 10 mg; Otherwise 7.5 mg every Tue; 5 mg all other days Left voice message Advised patient to increase dose for 1 day only then resume weekly regimen Next INR check due on 12/18/2023 Patient instructed to call [facility] at [phone] with any questionsor concerns. Alejandro Molina bobbi Clinical Pharmacist, Pharmacy Anticoagulation Clinic Pharmacy An[facility] Pager: [phone] documented in this encounterGerman Hospital12-06-2023 Miscellaneous Notes* Telephone Encounter - Ruthie Cuevas RPh - 09/20/2023 1:16 PM EST [facility] Anticoagulation Episode Summary Anticoagulation Care Providers Provider Role Specialty Phone number Guanakito Reno MD [facility] [phone] Cal Mitchell is a 78 year old year old male patient being evaluated today for a Telemanagementvisit. Patient is currently on the following anticoagulant(s) Warfarin. Labs PT INR (no units) Date Value 09/28/2022 1.9 (self reporting) 01/24/2022 2.1 biotel 10/26/2021 2.1 (Biotel) INR Home CoaguChek (no units) Date Value 09/19/2023 2.7 08/21/2023 2.8 07/26/2023 2.5 Hemoglobin (g/dL) Date Value 08/14/2023 11.7 10/06/2020 12.3 Hematocrit (%) Date Value 08/14/2023 38.6 10/06/2020 39.0 Platelet Count (k/uL) Date Value 08/14/2023 144 10/06/2020 189 Creatinine (mg/dL) Date Value 08/14/2023 2.30 01/18/2022 1.83 12/21/2021 1.91 10/06/2020 1.60 07/18/2019 1.46 03/18/2019 1.51 Bilirubin, Total (mg/dL) Date Value 08/14/2023 0.5 10/06/2020 0.4 ALT (U/L) Date Value 08/14/2023 21 10/06/2020 16 AST (U/L) Date Value 08/14/2023 26 10/06/2020 17 Estimated Creatinine Clearance: 32.9 mL/min (A) (based on SCr of 2.3 mg/dL (H)). 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: [facility] (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 Paroxysmal atrial fibrillation (hcc) Anticoagulation Episode Summary Current INR goal: 2.0-3.0 Assessment: INR result of 2.7 is therapeutic Plan: Current Warfarin Dosing As of 09/20/2023 Full warfarin instructions: 7.5 mg every Tue; 5 mg all other days Left voice message Advised patient to continue current weekly dose as noted above Next home INR check scheduled on 12.20 LM for January. Ruthie Cuevas RPh Clinical Pharmacist, Pharmacy Anticoagulation Clinic Pharmacy Antico[facility] Pager: [phone]. documented in this encounterGerman Hospital11-21-2023 History of Present illness Narrative* Mouna Vallecillo RN - 09/05/2023 1:48 PM ESTSummary: Medication Adherence review per request of payer ACM LUIS RN Action/FYI: Medication Adherence review completed per request of payer. NO PROVIDER ACTION REQUIRED Patient identified by name and date of . Patient Attributed To: JAY Payer: [facility] Reason for review or outreach: Medication Adherence Medication Adherence Review Details: Diabetes Summary / Findings: GLIMEPIRIDE -- Refill Due - 07/18/2023 ATORVASTATIN -- Refill Due - 08/21/2023 Pharmacy - [facility] - Action Taken: Data submitted to [employer] message to patient Contact made with patient: No, Chart review only. documented in this encounterGerman Hospital11-07-2023 Miscellaneous Notes* Telephone Encounter - Twin Cole [facility] - 08/22/2023 9:46 AM EST [facility] Anticoagulation Episode Summary Anticoagulation Care Providers Provider Role Specialty Phone number Guanakito Reno MD [facility] Medicine [phone] Cal Mitchell is a 78 year old year old male patient being evaluated today for a Telemanagementvisit. Patient is currently on the following anticoagulant(s) Warfarin. Labs PT INR (no units) Date Value 09/28/2022 1.9 (self reporting) 01/24/2022 2.1 biotel 10/26/2021 2.1 (Biotel) INR Home CoaguChek (no units) Date Value 08/21/2023 2.8 07/26/2023 2.5 07/05/2023 2.5 Hemoglobin (g/dL) Date Value 08/14/2023 11.7 10/06/2020 12.3 Hematocrit (%) Date Value 08/14/2023 38.6 10/06/2020 39.0 Platelet Count (k/uL) Date Value 08/14/2023 144 10/06/2020 189 Creatinine (mg/dL) Date Value 08/14/2023 2.30 01/18/2022 1.83 12/21/2021 1.91 10/06/2020 1.60 07/18/2019 1.46 03/18/2019 1.51 Bilirubin, Total (mg/dL) Date Value 08/14/2023 0.5 10/06/2020 0.4 ALT (U/L) Date Value 08/14/2023 21 10/06/2020 16 AST (U/L) Date Value 08/14/2023 26 10/06/2020 17 Estimated Creatinine Clearance: 32.9 mL/min (A) (based on SCr of 2.3 mg/dL (H)). 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: Anticoagulation Episode Summary Current INR goal: 2.0-3.0 Assessment: INR result of 2.8 is therapeutic Plan: Current Warfarin Dosing As of 08/22/2023 Full warfarin instructions: 7.5 mg every Tue; 5 mg all other days Left voice message Advised patient to continue current weekly dose as noted above Next home INR check scheduled on 09/05/2023 Twin Cole RPh Clinical Pharmacist, Pharmacy Anticoagulation Clinic Pharmacy Anticoagulation Clinic Pager: [phone]. documented in this encounterGerman Hospital11-01-2023 Miscellaneous Notes* Telephone Encounter - Gerardo Fountain LPN - 08/16/2023 11:45 AM EDT Elly advised of same. Gerardo Fountain LPN * Telephone Encounter - Guanakito Reno MD - 08/16/2023 11:11 AM EDT One week * Telephone Encounter - Niels Rodriges RN - 08/16/2023 11:02 AM EDT Phoned and spoke with daughter, Elly, and given provider's message below with verbalized understanding. Daughter reports patient drinks mainly coke zero, maybe a little water, and a little green tea. Advised patient should be drinking plenty of water to help his kidneys. Elly states she will workon this with patient. Elly asking how soon do you want his labs checked? Please clarify, as message only states "one." Please phone January with reply: [phone] Copied and pasted provider's message from previous encounter: Sugars are really good. Stop his glimepiride. Call sugars in two weeks. His kidney function is worse, recheck labs in one . Make sure drinking adequate fluids. documented in this encounterGerman Hospital10-31-2023 Miscellaneous Notes* Telephone Encounter - Niels Rodriges RN - 08/15/2023 12:23 PM EDT Left vm for patient to return call to nurse for provider's message. * Telephone Encounter - Guanakito Reno MD - 08/15/2023 12:06 PM EDT Sugars are really good. Stop his glimepiride. Call sugars in two weeks. His kidney function is worse, recheck labs in one . Make sure drinking adequate fluids. documented in this encounterGerman Hospital10-30-2023 History of Present illness Narrative* Guanakito Reno MD - 08/14/2023 1:24 PM EDT Patient presents with: 6 Month Exam HPI: Patient presents today for office visit for follow up. DM: Does not check his sugars at home Does not watch his diet Continues on Actos and Amaryl No vision changes. Due for exam No polyuria or polydipsia No foot lesions, numbness or pain Does not see podiatry. Daughter requesting consult. HTN: Does not monitor BP at home Continues on Lisinopril-HCTZ along with metoprolol No side effects Denies chest pain No shortness of breath Denies headaches or dizziness No palpitations No syncope No edema No falls. Ambulates with cane. Also uses rollator and wheelchair when needed. Followed by Cardiology and vascular Continues on anticoag for A-fib No bleeding or bruising issues. HLD: No myalgias Memory is the same. Unchanged. Continues on Namenda. Does have some trouble sleeping at night. Not sure how many hours he averages. Refers to going to bed whenever. Gets up a couple times a night to urinate. Able to fall back asleep if he wakes up. PSYCH: Continues on Lexapro for anxiety and depression. No issues. Overall feeling pretty good. MEDICATIONS: Current Outpatient Medications Medication Sig lisinopril-hydroCHLOROthiazide (ZESTORETIC) 20-12.5 mg per tablet Take 1 tablet by mouth every morning. clopidogrel (PLAVIX) 75 mg tablet Take 1 tablet by mouth once daily. metoprolol succinate ER (TOPROL XL) 50 mg 24 hr tablet Take 1 tablet by mouth once daily. finasteride (PROSCAR) 5 mg tablet Take 1 tablet by mouth once daily. memantine (NAMENDA) 10 mg tablet Take 1 tablet by mouth once daily. escitalopram oxalate (LEXAPRO) 10 mg tablet Take 1 tablet by mouth once daily. pioglitazone (ACTOS) 30 mg tablet Take 1 tablet by mouth once daily. glimepiride (AMARYL) 2 mg tablet Take 1 tablet by mouth daily with breakfast. atorvastatin (LIPITOR) 80 mg tablet Take 1 tablet by mouth daily at bedtime. For cholesterol. warfarin (COUMADIN) 5 mg tablet 7.5 mg on Monday, 5 mg all other days or as directed nitroglycerin sublingual (NITROQUICK) 0.4 mg SL tablet Dissolve 1 tablet under the tongue as needed. for chest pain,every 5 min x3 acetaminophen (TYLENOL) 500 mg tablet Take 500 mg by mouth every 8 hours as needed. blood sugar diagnostic (ONETOUCH ULTRA TEST) test strip Test blood sugar(s) one times daily. Dx: 250.00. Insulin: No Lancets (ONE TOUCH DELICA) [facility] lancets Test blood sugar(s) one time daily. Dx: 250.00. Insulin: No Current Facility-Administered Medications Medication Dose Route Frequency perflutren lipid microspheres 1.3 mL in NaCl (PF) 0.9% 10 mL injection (DEFINITY) INTRAVENOUS DIRECTED PRN sodium chloride 0.9 % (flush) 10 mL (BD POSIFLUSH) 10 mL INTRAVENOUS DIRECTED PRN perflutren lipid microspheres 1.3 mL in NaCl (PF) 0.9% 10 mL injection (DEFINITY) INTRAVENOUS DIRECTED PRN sodium chloride 0.9 % (flush) 10 mL (BD POSIFLUSH) 10 mL INTRAVENOUS DIRECTED PRN ALLERGIES: ALLERGIES No Known Allergies PAST MEDICAL HISTORY Diagnosis Date Actinic keratosis 10/20 BPH (benign prostatic hyperplasia) Chronic airway obstruction, not elsewhere classified 10/20 Diabetes (HCC) Diverticulosis of colon (without mention of hemorrhage) Ectatic thoracic aorta (HCC) 06/07/2018 06/07/18 Chest CTA: There is atherosclerotic calcification of the thoracic aorta with mild fusiform ectasia of the descending component measuring 3.2 x 3.1 cm Impacted cerumen 10/20 Obesity, unspecified 11/19 Other and unspecified hyperlipidemia 10/19 Other symptoms involving cardiovascular system 10/20 Peripheral vascular disease, unspecified (HCC) 10/20 R carotid Unspecified essential hypertension 04/18 PAST SURGICAL HISTORY Procedure Laterality Date ARTL CATHJ/CANNULJ MNTR/TRANSFUSION SPX PRQ 04-17-14 COLONOSCOPY FLX DX W/COLLJ SPEC WHEN PFRMD 40 years ago Colonoscopy COLONOSCOPY FLX DX W/COLLJ SPEC WHEN PFRMD 03/02/11 DSTRJ LESION PENIS SIMPLE CHEMICAL 10/20 PAST SURGICAL HISTORY OF Skin tag removals - bilateral axillary REMOVAL IMPACTED CERUMEN INSTRUMENTATION UNILAT 10/20 TEAEC W/PATCH GRF CAROTID VERTB SUBCLAV NECK INC 04-17-14 RIGHT FAMILY HISTORY Problem Relation Age of Onset Heart Mother of CHF Stroke Maternal Grandfather Social History Tobacco Use Smoking status: Former Packs/day: 2.00 Years: 10.00 Additional pack years: 0.00 Total pack years: 20.00 Types: Cigarettes Quit date: 12/05/1985 Years since quittin.7 Smokeless tobacco: Never Vaping Use Vaping Use: Never used Substance Use Topics Alcohol use: No Comment: none now; social in past Drug use: No Reviewed current medications, allergies, past medical history, surgical history, family history andsocial history today. REVIEW OF SYSTEMS All other reviewed and negative other than HPI. HEALTH MAINTENANCE: Reviewed health maintenance issues today and recommended the following in detail. Hepatitis B Vaccine(1 of 3 - Risk 3-dose series) Never done RSV Vaccine(1 - 1-dose 60+ series) Never done Dilated Retinal Exam due on 12/05/2019 HbA1C due on 07/20/2022 LDL Cholesterol due on 12/21/2022 Urine Albumin:Creatinine Ratio due on 01/18/2023 Serum Creatinine due on 01/18/2023 Hemoglobin/Hematocrit due on 01/18/2023 Influenza Vaccine(1) due on 06/16/2023 Covid-19 Vaccine( season) due on 06/16/2023 VITALS: BP 120/68 Pulse (!) 59 Ht 175.3 cm (5' 9") Wt 120.7 kg (266 lb 3.2 oz) SpO2 99% BMI 39.31kg/m Last 4 Encounter Wt Readings: Date: Wt: 02/13/2023 119.7 kg (264 lb) 02/06/2023 118.4 kg (261 lb) 10/04/2022 117 kg (258 lb) 08/15/2022 119.3 kg (263 lb) PHYSICAL EXAMINATION: General appearance: Well appearing, alert, in no acute distress, well-hydrated, well nourished. Skin: Skin color, texture, turgor normal, no suspicious rashes or lesions Head: Normocephalic, no masses, lesions, tenderness or abnormalities Lungs:cta Heart: RRR without murmur, gallop, or rubs. No ectopy Abdomen: Normal abdominal exam, Abdomen soft, non-tender. Bowel sounds normal. No masses, organomegaly Extremities: No deformities, edema, skin discoloration, clubbing or cyanosis. Good capillary refill. Musculoskeletal: No joint swelling, deformity, or tenderness Feet:Shoes and socks removed, No deformities, ulcers, calluses, normal distal pulses, and sensitiveto 10 gm monofilament ASSESSMENT/PLAN: 1. Onychomycosis - ICD9: 110.1, ICD10: B35.1 (primary diagnosis) - CONSULT TO PODIATRY 2. Essential hypertension - ICD9: 401.9, ICD10: I10 - Controlled - Continue current medications 3. Hyperlipidemia, mixed - ICD9: 272.2, ICD10: E78.2 - Controlled - Continue current medications - Counseled on healthy diet and regular exercise - LIPID PANEL BASIC 4. Ectatic thoracic aorta (HCC) - ICD9: 447.71, ICD10: I77.810 - per cardiology 5. Paroxysmal atrial fibrillation (HCC) - ICD9: 427.31, ICD10: I48.0 - stable 6. Hypertensive kidney disease with stage 3 chronic kidney disease, unspecified whether stage 3a or3b CKD (HCC) - ICD9: 403.90, 585.3, ICD10: I12.9, N18.30 - stable. 7. Nonrheumatic aortic valve stenosis - ICD9: 424.1, ICD10: I35.0 - stable. 8. Type 2 diabetes mellitus with stage 3 chronic kidney disease, without long- term current use of insulin, unspecified whether stage 3a or 3b CKD (HCC) - ICD9: 250.40, 585.3, ICD10: E11.22, N18.30 - continue meds. Get labs. 9. Stage 3 chronic kidney disease, unspecified whether stage 3a or 3b CKD (HCC) - ICD9: 585.3, ICD10: N18.30 - stable. 10. Mixed dementia (HCC) - ICD9: 331.0, 294.10, 290.40, ICD10: G30.9, F01.50, F02.80 -continue meds. 11. Occlusion and stenosis of unspecified carotid artery - ICD9: 433.10, ICD10: I65.29 - per vascular 12. Encounter for immunization - ICD9: V03.89, ICD10: Z23 - INFLUENZA VACCINE, PRSV FREE, AGE 65+ YR, HIGH DOSE, QUADRIVALENT (FLUZONE HIGH-DOSE) - [employer] COVID-19 VACCINE (2022- [place]) AGE 12+ YR 13. Type 2 diabetes mellitus with stage 3a chronic kidney disease, without long- term current use ofinsulin (HCC) - ICD9: 250.40, 585.3, ICD10: E11.22, N18.31 - HGB A1C - ALBUMIN/CREAT RATIO RND UR - CBC + DIFF - COMP METABOLIC PANEL 14. Hypertensive kidney disease with stage 3a chronic kidney disease (HCC) - ICD9: 403.90, 585.3, ICD10: I12.9, N18.31 Guanakito Reno MD documented in this encounterGerman Hospital10-11-2023 Miscellaneous Notes* Telephone Encounter - Ruthie Cuevas [facility] - 07/26/2023 4:50 PM EDT [facility] Anticoagulation Episode Summary Anticoagulation Care Providers Provider Role Specialty Phone number Guanakito Reno MD [facility] [phone] Cal Mitchell is a 78 year old year old male patient being evaluated today for a Telemanagementvisit. Patient is currently on the following anticoagulant(s) Warfarin. Labs PT INR (no units) Date Value 09/28/2022 1.9 (self reporting) 01/24/2022 2.1 biotel 10/26/2021 2.1 (Biotel) INR Home CoaguChek (no units) Date Value 07/26/2023 2.5 07/05/2023 2.5 06/13/2023 2.5 Hemoglobin (g/dL) Date Value 01/18/2022 12.1 10/06/2020 12.3 Hematocrit (%) Date Value 01/18/2022 39.0 10/06/2020 39.0 Platelet Count (k/uL) Date Value 01/18/2022 188 10/06/2020 189 Creatinine (mg/dL) Date Value 01/18/2022 1.83 12/21/2021 1.91 10/06/2020 1.60 07/18/2019 1.46 03/18/2019 1.51 Bilirubin, Total (mg/dL) Date Value 01/18/2022 0.5 10/06/2020 0.4 ALT (U/L) Date Value 01/18/2022 19 10/06/2020 16 AST (U/L) Date Value 01/18/2022 20 10/06/2020 17 CrCl cannot be calculated (Patient's most recent lab result is older than the maximum 180 days allowed.). 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: [facility] (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 Paroxysmal atrial fibrillation (hcc) Anticoagulation Episode Summary Current INR goal: 2.0-3.0 Assessment: INR result of 2.5 is therapeutic Plan: Current Warfarin Dosing As of 07/26/2023 Full warfarin instructions: 7.5 mg every Tue; 5 mg all other days LVMX. Advised patient to continue current weekly dose as noted above Next home INR check scheduled on 08/09/2023 Ruthie Cuevas [facility] Clinical Pharmacist, Pharmacy Anticoagulation Clinic Pharmacy Anticoagulation Clinic Pager: [phone]. documented in this encounterGerman Hospital09-19-2023 Miscellaneous Notes* Telephone Encounter - Pily Cuevas - 07/04/2023 3:50 PM EDT Patient needs to have a gap supply sent to [facility] as well please send at least a weeks worth. Patient has been identified by name and date of : Yes Requested Prescriptions Pending Prescriptions Disp Refills lisinopril-hydroCHLOROthiazide (ZESTORETIC) 20-12.5 mg per tablet 90 tablet 0 Sig: Take 1 tablet by mouth every morning. RX INSTRUCTIONS: Patient aware RX escripted to mail away pharmacy. No need to notify patient. Pily Horne documented in this encounterGerman Hospital09-12-2023 History of Present illness Narrative* Lizette Cardenas RN - 2023 3:08 PM EDT ACM LUIS RN Action/FYI: Medication Adherence review completed per request of payer. NO PROVIDER ACTION REQUIRED Please see requests in the Summary/Findings section below Patient identified by name and date of . Patient Attributed To: E Payer: [facility] Reason for review or outreach: Medication Adherence Medication Adherence Review Details: Hypertension Summary / Findings: Lisinopril was due for refill on: 05/16/23 at [facility] Action Taken: Data submitted to [employer] message to patient Other Contact made with patient: No, Chart review only. Signature: Lizette Cardenas RN documented in this encounterGerman Hospital08-07-2023 Miscellaneous Notes* Telephone Encounter - Alejandro Molina RPh - 05/22/2023 10:12 AM EDT [facility] Anticoagulation Episode Summary Anticoagulation Care Providers Provider Role Specialty Phone number Guanakito Reno MD Responsible Family Medicine [phone] Cal Mitchell is a 77 year old year old male patient being evaluated today for a Telemanagementvisit. Patient is currently on the following anticoagulant(s) Warfarin. Labs PT INR (no units) Date Value 09/28/2022 1.9 (self reporting) 01/24/2022 2.1 biotel 10/26/2021 2.1 (Biotel) INR Home CoaguChek (no units) Date Value 05/21/2023 2.0 04/22/2023 4.3 03/28/2023 3.1 CrCl cannot be calculated (Patient's most recent lab result is older than the maximum 180 days allowed.). 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: Anticoagulation Episode Summary Current INR goal: 2.0-3.0 Assessment: INR result of 2.0 is therapeutic Plan: Current Warfarin Dosing As of 05/22/2023 Full warfarin instructions: 7.5 mg every Tue; 5 mg all other days Left voice message Advised patient to continue current weekly dose as noted above Next INR check due on 06/05/2023 Patient instructed to call [facility] at [phone] with any questionsor concerns. Alejandro Molina RPh Clinical Pharmacist, Pharmacy Anticoagulation Clinic Pharmacy Anticoagulation Clinic Pager: [phone] documented in this encounterGerman Hospital07-10-2023 Miscellaneous Notes* Telephone Encounter - Alejandro Molina RPh - 04/24/2023 10:04 AM EDT [facility] Anticoagulation Episode Summary Anticoagulation Care Providers Provider Role Specialty Phone number Guanakito Reno MD Responsible [facility] [phone] Cal Mitchell is a 77 year old year old male patient being evaluated today for a Telemanagementvisit. Patient is currently on the following anticoagulant(s) Warfarin. Labs PT INR (no units) Date Value 09/28/2022 1.9 (self reporting) 01/24/2022 2.1 biotel 10/26/2021 2.1 (Biotel) INR Home CoaguChek (no units) Date Value 04/22/2023 4.3 03/28/2023 3.1 02/28/2023 2.0 CrCl cannot be calculated (Patient's most recent lab result is older than the maximum 180 days allowed.). 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: Anticoagulation Episode Summary Current INR goal: 2.0-3.0 Assessment: INR result of 4.3 is SUPRAtherapeutic due to: No obvious cause Plan: Current Warfarin Dosing As of 04/24/2023 Full warfarin instructions: 7.5 mg every Tue; 5 mg all other days Called and spoke to patient/caregiver Advised patient to decrease dose for 1 day only then resume weekly regimen (patient received a lowered dose on 04/22/23 per caregiver). Next INR check due on 05/08/2023 Patient's caregiver verbalizes understanding of the plan. Alejandro Molina RPh Clinical Pharmacist, Pharmacy Anticoagulation Clinic Pharmacy Anticoagulation Clinic Pager: [phone]. documented in this encounterGerman Hospital07-05-2023 Miscellaneous Notes* Telephone Encounter - Anna Mas - 04/19/2023 3:56 PM EDT Patient called to add Glimepiride to list of medications. * Telephone Encounter - Leslie Horne - 04/19/2023 3:40 PM EDT Patient has been identified by name and date of : Yes Requested Prescriptions Pending Prescriptions Disp Refills clopidogrel (PLAVIX) 75 mg tablet 90 tablet 1 Sig: Take 1 tablet by mouth once daily. metoprolol succinate ER (TOPROL XL) 50 mg 24 hr tablet 90 tablet 3 Sig: Take 1 tablet by mouth once daily. finasteride (PROSCAR) 5 mg tablet 90 tablet 3 Sig: Take 1 tablet by mouth once daily. memantine (NAMENDA) 10 mg tablet 90 tablet 3 Sig: Take 1 tablet by mouth once daily. escitalopram oxalate (LEXAPRO) 10 mg tablet 90 tablet 3 Sig: Take 1 tablet by mouth once daily. pioglitazone (ACTOS) 30 mg tablet 90 tablet 3 Sig: Take 1 tablet by mouth once daily. RX INSTRUCTIONS: Patient aware RX will be sent to pharmacy. No need to notify patient. Leslie Perez Pss documented in this encounterGerman Hospital06-13-2023 Miscellaneous Notes* Telephone Encounter - Twin Cole, [facility] - 03/28/2023 3:22 PM EDT [facility] Anticoagulation Episode Summary Anticoagulation Care Providers Provider Role Specialty Phone number Guanakito Reno MD [facility] [phone] Cal Mitchell is a 77 year old year old male patient being evaluated today for a Telemanagementvisit. Patient is currently on the following anticoagulant(s) Warfarin. Labs PT INR (no units) Date Value 09/28/2022 1.9 (self reporting) 01/24/2022 2.1 biotel 10/26/2021 2.1 (Biotel) INR Home CoaguChek (no units) Date Value 03/28/2023 3.1 02/28/2023 2.0 01/31/2023 2.8 Hemoglobin (g/dL) Date Value 01/18/2022 12.1 10/06/2020 12.3 Hematocrit (%) Date Value 01/18/2022 39.0 10/06/2020 39.0 Platelet Count (k/uL) Date Value 01/18/2022 188 10/06/2020 189 Creatinine (mg/dL) Date Value 01/18/2022 1.83 12/21/2021 1.91 10/06/2020 1.60 07/18/2019 1.46 03/18/2019 1.51 Bilirubin, Total (mg/dL) Date Value 01/18/2022 0.5 10/06/2020 0.4 ALT (U/L) Date Value 01/18/2022 19 10/06/2020 16 AST (U/L) Date Value 01/18/2022 20 10/06/2020 17 CrCl cannot be calculated (Patient's most recent lab result is older than the maximum 180 days allowed.). 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: Anticoagulation Episode Summary Current INR goal: 2.0-3.0 Assessment: INR result of 3.1 is SUPRAtherapeutic due to: unknown cause - did not speak to patient Plan: Current Warfarin Dosing As of 03/28/2023 Full warfarin instructions: 7.5 mg every Tue; 5 mg all other days Left voice message Advised patient to decrease dose for 1 day only then resume weekly regimen Next home INR check scheduled on 04/11/2023 Twin Cole RPh Clinical Pharmacist, Pharmacy Anticoagulation Clinic Pharmacy Anticoagulation Clinic Pager: [phone]. documented in this encounterGerman Hospital05-01-2023 History of Present illness Narrative* Dory Mayers RN - 02/13/2023 4:13 PM EDT EVENT MONITOR DISPOSABLE PATCH INSTRUCTIONS Patient Name: Cal Mitchell Clinic Number: [id number] Skin prepped and cleansed with alcohol Patch secured to prepped area Monitor Activated Serial #: [id number] Patient Instructed: Prescribed order timeframe Bathing guidelines Usage of event button and diary documentation Return of monitor at the end of prescribed order Call with problems [phone] or [phone] ext. [phone] Patient expresses a good understanding of instructions Dory Mayers RN * Pam Reddy MD - 02/13/2023 4:01 PM EDT Images from the original note were not included. Pam Reddy MD Interventional Cardiology [facility] [address], [place] [address] [phone] Chief Complaint Patient presents with: Established Patient Follow-Up HISTORY OF PRESENT ILLNESS: Mr. 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 Patient is very physically active but he has significant dementia Cardiac Risk Factors age (male over 45, female over 55), hyperlipidemia, hypertension, family history of CAD PAST MEDICAL HISTORY Diagnosis Date Actinic keratosis 10/20 BPH (benign prostatic hyperplasia) Chronic airway obstruction, not elsewhere classified 10/20 Diabetes (HCC) Diverticulosis of colon (without mention of hemorrhage) Ectatic thoracic aorta (HCC) 06/07/2018 06/07/18 Chest CTA: There is atherosclerotic calcification of the thoracic aorta with mild fusiform ectasia of the descending component measuring 3.2 x 3.1 cm Impacted cerumen 10/20 Obesity, unspecified 11/19 Other and unspecified hyperlipidemia 10/19 Other symptoms involving cardiovascular system 10/20 Peripheral vascular disease, unspecified (HCC) 10/20 R carotid Unspecified essential hypertension 04/18 PAST SURGICAL HISTORY Procedure Laterality Date ARTL CATHJ/CANNULJ MNTR/TRANSFUSION SPX PRQ 04-17-14 COLONOSCOPY FLX DX W/COLLJ SPEC WHEN PFRMD 40 years ago Colonoscopy COLONOSCOPY FLX DX W/COLLJ SPEC WHEN PFRMD 03/02/11 DSTRJ LESION PENIS SIMPLE CHEMICAL 10/20 PAST SURGICAL HISTORY OF Skin tag removals - bilateral axillary REMOVAL IMPACTED CERUMEN INSTRUMENTATION UNILAT 10/20 TEAEC W/PATCH GRF CAROTID VERTB SUBCLAV NECK INC 04-17-14 RIGHT FAMILY HISTORY Problem Relation Age of Onset Heart Mother of CHF Stroke Maternal Grandfather Social History Tobacco Use Smoking status: Former Packs/day: 2.00 Years: 10.00 Pack years: 20.00 Types: Cigarettes Quit date: 12/05/1985 Years since quittin.2 Smokeless tobacco: Never Vaping Use Vaping Use: Never used Substance Use Topics Alcohol use: No Comment: none now; social in past Drug use: No ALLERGIES No Known Allergies Medications: Current Outpatient Medications Medication Sig Dispense Refill clopidogrel (PLAVIX) 75 mg tablet Take 1 tablet by mouth once daily. 90 tablet 1 atorvastatin (LIPITOR) 80 mg tablet Take 1 tablet by mouth daily at bedtime. For cholesterol. 90 tablet 0 lisinopril-hydroCHLOROthiazide (ZESTORETIC) 20-12.5 mg per tablet Take 1 tablet by mouth every morning. 90 tablet 0 atorvastatin (LIPITOR) 80 mg tablet Take 1 tablet by mouth daily at bedtime. For cholesterol. 30 tablet 0 glimepiride (AMARYL) 2 mg tablet Take 1 tablet by mouth daily with breakfast. 90 tablet 0 escitalopram oxalate (LEXAPRO) 10 mg tablet Take 1 tablet by mouth once daily. 90 tablet 3 finasteride (PROSCAR) 5 mg tablet Take 1 tablet by mouth once daily. 90 tablet 3 memantine (NAMENDA) 10 mg tablet Take 1 tablet by mouth once daily. 90 tablet 3 metoprolol succinate ER (TOPROL XL) 50 mg 24 hr tablet Take 1 tablet by mouth once daily. 90 tablet3 pioglitazone (ACTOS) 30 mg tablet Take 1 tablet by mouth once daily. 90 tablet 3 warfarin (COUMADIN) 5 mg tablet 7.5 mg on Monday, 5 mg all other days or as directed 100 tablet 5 nitroglycerin sublingual (NITROQUICK) 0.4 mg SL tablet Dissolve 1 tablet under the tongue as needed. for chest pain,every 5 min x3 1 Bottle of 25 3 acetaminophen (TYLENOL) 500 mg tablet Take 500 mg by mouth every 8 hours as needed. blood sugar diagnostic (ONETOUCH ULTRA TEST) test strip Test blood sugar(s) one times daily. Dx: 250.00. Insulin: No 150 Strip 3 Lancets (ONE TOUCH DELICA) [facility] lancets Test blood sugar(s) one time daily. Dx: 250.00. Insulin: No1 Each 0 Current Facility-Administered Medications Medication Dose Route Frequency Provider Last Rate Last Admin perflutren lipid microspheres 1.3 mL in NaCl (PF) 0.9% 10 mL injection (DEFINITY) INTRAVENOUS DIRECTED JOHN Reddy MD sodium chloride 0.9 % (flush) 10 mL (BD POSIFLUSH) 10 mL INTRAVENOUS DIRECTED JOHN Reddy MD perflutren lipid microspheres 1.3 mL in NaCl (PF) 0.9% 10 mL injection (DEFINITY) INTRAVENOUS DIRECTED JOHN Reddy MD sodium chloride 0.9 % (flush) 10 mL (BD POSIFLUSH) 10 mL INTRAVENOUS DIRECTED JOHN Reddy MD Review of Systems Constitutional: Negative for chills, diaphoresis, fever, malaise/fatigue and weight loss. HENT: Negative for congestion, ear discharge, ear pain, hearing loss, nosebleeds, sinus pain, sore throat and tinnitus. Eyes: Negative for blurred vision, double vision, photophobia, pain, discharge and redness. Respiratory: Negative for cough, hemoptysis, sputum production, shortness of breath, wheezing and stridor. Cardiovascular: Negative for chest pain, palpitations, orthopnea, claudication, leg swelling and PND. Gastrointestinal: Negative for abdominal pain, blood in stool, constipation, diarrhea, heartburn, melena, nausea and vomiting. Genitourinary: Negative for dysuria, flank pain, frequency, hematuria and urgency. Musculoskeletal: Negative for back pain, falls, joint pain, myalgias and neck pain. Skin: Negative for itching and rash. Neurological: Negative for dizziness, tingling, tremors, sensory change, speech change, focal weakness, seizures, loss of consciousness, weakness and headaches. Endo/Heme/Allergies: Negative for environmental allergies and polydipsia. Does not bruise/bleed easily. Psychiatric/Behavioral: Negative for depression, hallucinations, memory loss, substance abuse and suicidal ideas. The patient is not nervous/anxious and does not have insomnia. Physical Examination: Vitals:BP 110/60 Pulse 78 Wt 264 lb (119.8kg) SpO2 96% BP w/Orthostatic Vitals Date and Time Orthostatic BP Orthostatic Pulse BP Pulse BP Position BP Site BP Cuff Size 02/13/23 1439 -- -- 110/60 78 Sitting Left Arm Large Adult Last 2 Encounter Wt Readings: Date: Wt: 02/13/2023 119.7 kg (264 lb) 02/06/2023 118.4 kg (261 lb) Physical Exam Constitutional: General: He is not in acute distress. Appearance: He is not diaphoretic. HENT: Head: Normocephalic and atraumatic. Right Ear: External ear normal. Left Ear: External ear normal. Nose: Nose normal. Mouth/Throat: Pharynx: Oropharynx is clear. Eyes: General: Right eye: No discharge. Left eye: No discharge. Conjunctiva/sclera: Conjunctivae normal. Pupils: Pupils are equal, round, and reactive to light. Cardiovascular: Rate and Rhythm: Normal rate and regular rhythm. Heart sounds: S1 normal and S2 normal. Murmur heard. No friction rub. No gallop. No S3 or S4 sounds. Pulmonary: Effort: Pulmonary effort is normal. No respiratory distress. Breath sounds: Normal breath sounds. No wheezing or rales. Chest: Chest wall: No tenderness. Musculoskeletal: General: Normal range of motion. Cervical back: Normal range of motion and neck supple. Skin: General: Skin is warm and dry. Neurological: Mental Status: He is alert and oriented to person, place, and time. Psychiatric: Mood and Affect: Mood normal. Thought Content: Thought content normal. Pertinent Labs: CBC: Hemoglobin (g/dL) Date Value 01/18/2022 12.1 10/06/2020 12.3 Hematocrit (%) Date Value 01/18/2022 39.0 10/06/2020 39.0 WBC (k/uL) Date Value 01/18/2022 7.20 10/06/2020 5.94 Platelet Count (k/uL) Date Value 01/18/2022 188 10/06/2020 189 BMP: Glucose (mg/dL) Date Value 01/18/2022 117 10/06/2020 121 Potassium (mmol/L) Date Value 01/18/2022 4.1 10/06/2020 3.8 Sodium (mmol/L) Date Value 01/18/2022 140 10/06/2020 138 Chloride (mmol/L) Date Value 01/18/2022 101 10/06/2020 103 CO2 (mmol/L) Date Value 01/18/2022 25 10/06/2020 25 Creatinine (mg/dL) Date Value 01/18/2022 1.83 10/06/2020 1.60 BUN (mg/dL) Date Value 01/18/2022 19 10/06/2020 26 Anion Gap (mmol/L) Date Value 01/18/2022 14 10/06/2020 10 Calcium (mg/dL) Date Value 10/06/2020 9.0 Calcium, Total (mg/dL) Date Value 01/18/2022 9.2 INR: Lipid Profile: Total Cholesterol, Nonfasting Date Value Ref Range Status 12/21/2021 171 <200 mg/dL Final Comment: <200 mg/dL, Desirable 200-239 mg/dL, Borderline high >239 mg/dL, High HDL Cholesterol, Nonfasting Date Value Ref Range Status 12/21/2021 41 >39 mg/dL Final Comment: 40-59 mg/dL, Acceptable >59 mg/dL, High: Negative risk factor for coronary heart disease <40 mg/dL, Low: Positive risk factor for coronary heart disease LDL Cholesterol, Nonfasting Date Value Ref Range Status 12/21/2021 98 <100 mg/dL Final Comment: <100 mg/dL, Optimal 100-129 mg/dL, Near optimal/above optimal 130-159 mg/dL, Borderline high 160-189 mg/dL, High >189 mg/dL, Very high Secondary prevention optimal LDL Cholesterol levels are recommended to be < 70 mg/dL Triglycerides, Nonfasting Date Value Ref Range Status 12/21/2021 162 (H) <150 mg/dL Final Comment: <150 mg/dL, Normal 150-199 mg/dL, Borderline high 200-499 mg/dL, High >499 mg/dL, Very high Hemoglobin A1C: No results found for: HGBA1C TSH: No results found for: TSHREFL Prior Cardiac Testing none Assessment and Plan: 77 years old gentleman with 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 Syncope, unspecified syncope type - ICD9: 780.2, ICD10: R55 (primary diagnosis) The syncopal episodes likely physical fall has nothing to do with loss of consciousness or valve problem We will schedule for Holter monitor to rule out any arrhythmia - OUTSIDE VENDOR CARDIAC OUTPATIENT EXTENDED RHYTHM RECORDING (WITHOUT TELEMETRY) - ECHO - PERFLUTREN LIPID MICROSPHERES 1.1 MG/ML INJECTION IN NS 10 ML - SODIUM CHLORIDE 0.9 % (FLUSH) INJECTION SYRINGE 2. Aortic valve disorder - ICD9: 424.1, ICD10: I35.9 Patient remained asymptomatic from the aortic valve Patient's dementia is significant Will require geriatric evaluation to assess his prognosis and his short-term and long-term prognosis with dementia Repeat his echo to assess compared to the previous year - ECHO - PERFLUTREN LIPID MICROSPHERES 1.1 MG/ML INJECTION IN NS 10 ML - SODIUM CHLORIDE 0.9 % (FLUSH) INJECTION SYRINGE Pam Reddy MD Follow up planning: One year Electronically signed by Pam Reddy MD on February 13, 2023, 4:01 PM The above note was partially created using a dictation recognition software. A reasonable attempt has been made to correct any errors. documented in this encounterGerman Hospital04-24-2023 History of Present illness Narrative* Guanakito Reno MD - 02/06/2023 3:17 PM EDT Patient presents with: Follow Up HPI: Patient presents today for office visit for follow up. Patient's last office visit in department was 01/19/22. HTN: Patient is compliant with meds Yes Monitors bp at home: No. Denies side effects: Yes. Chest pain: No. Dyspnea: No. Edema: No. Palpitations: No. Syncope: No. Headache: No. Dizziness: No. DM: Reports overall feeling well. Medication side effects: No. Home sugar check frequency/results:No Hypoglycemic spells: No. Watching diet: Some. Unexpected weight loss: No. Polyuria, polydipsia: No. Vision Changes: No. Foot lesions or numbness or pain: No. ANTICOAGULATION: Patient is on coumadin for a fib. Length of treatment: lifetime. Bleeding or bruising No. Monitored by our office: Yes. Up to date on inr checks Yes. Memory is unchanged. Had a fall last week going to the mailbox. He usually does not. Discussed risks of being on coumadin and falls. Uses walker or cane. Seeing Dr Prescott for vascular. Seeing cardiology for his cardiac issues. MEDICATIONS: Current Outpatient Medications Medication Sig atorvastatin (LIPITOR) 80 mg tablet Take 1 tablet by mouth daily at bedtime. For cholesterol. lisinopril-hydroCHLOROthiazide (ZESTORETIC) 20-12.5 mg per tablet Take 1 tablet by mouth every morning. atorvastatin (LIPITOR) 80 mg tablet Take 1 tablet by mouth daily at bedtime. For cholesterol. lisinopril-hydroCHLOROthiazide (ZESTORETIC) 20-12.5 mg per tablet Take 1 tablet by mouth every morning. glimepiride (AMARYL) 2 mg tablet Take 1 tablet by mouth daily with breakfast. lisinopril-hydroCHLOROthiazide (PRINZIDE,ZESTORETIC) 20-12.5 mg per tablet Take 1 tablet by mouth every morning. (Patient not taking: Reported on 10/04/2022) clopidogrel (PLAVIX) 75 mg tablet Take 1 tablet by mouth once daily. clopidogrel (PLAVIX) 75 mg tablet Take 1 tablet by mouth once daily. (Patient not taking: Reported on 10/04/2022) escitalopram oxalate (LEXAPRO) 10 mg tablet Take 1 tablet by mouth once daily. finasteride (PROSCAR) 5 mg tablet Take 1 tablet by mouth once daily. memantine (NAMENDA) 10 mg tablet Take 1 tablet by mouth once daily. metoprolol succinate ER (TOPROL XL) 50 mg 24 hr tablet Take 1 tablet by mouth once daily. pioglitazone (ACTOS) 30 mg tablet Take 1 tablet by mouth once daily. warfarin (COUMADIN) 5 mg tablet 7.5 mg on Monday, 5 mg all other days or as directed nitroglycerin sublingual (NITROQUICK) 0.4 mg SL tablet Dissolve 1 tablet under the tongue as needed. for chest pain,every 5 min x3 acetaminophen (TYLENOL) 500 mg tablet Take 500 mg by mouth every 8 hours as needed. blood sugar diagnostic (BrandYourselfTOUCH ULTRA TEST) test strip Test blood sugar(s) one times daily. Dx: 250.00. Insulin: No Lancets (ONE TOUCH DELICA) [facility] lancets Test blood sugar(s) one time daily. Dx: 250.00. Insulin: No Current Facility-Administered Medications Medication Dose Route Frequency perflutren lipid microspheres 1.3 mL in NaCl (PF) 0.9% 10 mL injection (DEFINITY) INTRAVENOUS DIRECTED PRN sodium chloride 0.9 % (flush) 10 mL (BD POSIFLUSH) 10 mL INTRAVENOUS DIRECTED PRN ALLERGIES: ALLERGIES No Known Allergies PAST MEDICAL HISTORY Diagnosis Date Actinic keratosis 10/20 BPH (benign prostatic hyperplasia) Chronic airway obstruction, not elsewhere classified 10/20 Diabetes (HCC) Diverticulosis of colon (without mention of hemorrhage) Ectatic thoracic aorta (HCC) 06/07/2018 06/07/18 Chest CTA: There is atherosclerotic calcification of the thoracic aorta with mild fusiform ectasia of the descending component measuring 3.2 x 3.1 cm Impacted cerumen 10/20 Obesity, unspecified 11/19 Other and unspecified hyperlipidemia 10/19 Other symptoms involving cardiovascular system 10/20 Peripheral vascular disease, unspecified (HCC) 10/20 R carotid Unspecified essential hypertension 04/18 PAST SURGICAL HISTORY Procedure Laterality Date ARTL CATHJ/CANNULJ MNTR/TRANSFUSION SPX PRQ 04-17-14 COLONOSCOPY FLX DX W/COLLJ SPEC WHEN PFRMD 40 years ago Colonoscopy COLONOSCOPY FLX DX W/COLLJ SPEC WHEN PFRMD 03/02/11 DSTRJ LESION PENIS SIMPLE CHEMICAL 10/20 PAST SURGICAL HISTORY OF Skin tag removals - bilateral axillary REMOVAL IMPACTED CERUMEN INSTRUMENTATION UNILAT 10/20 TEAEC W/PATCH GRF CAROTID VERTB SUBCLAV NECK INC 04-17-14 RIGHT FAMILY HISTORY Problem Relation Age of Onset Heart Mother of CHF Stroke Maternal Grandfather Social History Tobacco Use Smoking status: Former Packs/day: 2.00 Years: 10.00 Pack years: 20.00 Types: Cigarettes Quit date: 12/05/1985 Years since quittin.1 Smokeless tobacco: Never Vaping Use Vaping Use: Never used Substance Use Topics Alcohol use: No Comment: none now; social in past Drug use: No Reviewed current medications, allergies, past medical history, surgical history, family history andsocial history today. REVIEW OF SYSTEMS No issues with urine or bowels. All other reviewed and negative other than HPI. HEALTH MAINTENANCE: Reviewed health maintenance issues today and recommended the following in detail. SHINGRIX VACCINE(1 of 2) Never done DILATED RETINAL EXAM -recommended. DIABETIC FOOT EXAM due on 01/18/2020 COVID-19 VACCINE(4 - Booster for Moderna series) due on 02/07/2022 HBA1C due on 07/20/2022 ADVANCE DIRECTIVE DISCUSSION -has a dpoa. His daughters are surrogates. LDL CHOLESTEROL due on 12/21/2022 SERUM CREATININE due on 01/18/2023 HEMOGLOBIN/HEMATOCRIT due on 01/18/2023 ANNUAL PCP TEAM CHRONIC DISEASE VISIT due on 01/19/2023 URINE ALBUMIN:CREATININE RATIO due on 01/18/2023 VITALS: BP 122/58 Pulse 76 Resp 16 Wt 118.4 kg (261 lb) SpO2 94% BMI 38.54 kg/m Last 4 Encounter Wt Readings: Date: Wt: 10/04/2022 117 kg (258 lb) 08/15/2022 119.3 kg (263 lb) 03/29/2022 114.3 kg (252 lb) 01/19/2022 121.1 kg (267 lb) PHYSICAL EXAMINATION: General appearance: Well appearing, alert, in no acute distress, well-hydrated, well nourished. Skin: Skin color, texture, turgor normal, no suspicious rashes or lesions Head: Normocephalic, no masses, lesions, tenderness or abnormalities Neck: Supple, no adenopath Lungs: Lungs clear to auscultation. No wheezing, rhonchi, rales Heart: RRR without murmur, gallop, or rubs. No ectopy Abdomen: Normal abdominal exam, Abdomen soft, non-tender. Bowel sounds normal. No masses, organomegaly Extremities: No deformities, edema, skin discoloration, clubbing or cyanosis. Good capillary refill. Musculoskeletal: No joint swelling, deformity, or tenderness Feet:Shoes and socks removed and palpable distal pulses. Normal monofilament. No lesions. ASSESSMENT/PLAN: 1. Essential hypertension with goal blood pressure less than 140/90 - ICD9: 401.9, ICD10: I10 (primary diagnosis) - good control 2. Paroxysmal atrial fibrillation (HCC) - ICD9: 427.31, ICD10: I48.0 - continue meds. - CLOPIDOGREL 75 MG TABLET 3. 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 4. Type 2 diabetes mellitus with stage 3 chronic kidney disease, without long- term current use of insulin, unspecified whether stage 3a or 3b CKD (HCC) - ICD9: 250.40, 585.3, ICD10: E11.22, N18.30 - Controlled - Continue current medications - LIPID PANEL BASIC - HGB A1C - CBC + DIFF - COMP METABOLIC PANEL - ALBUMIN/CREAT RATIO RND UR 5. Peripheral arterial disease (HCC) - ICD9: 443.9, ICD10: I73.9 - per vascular. 6. Dementia, vascular, mixed, with behavioral disturbance (HCC) - ICD9: 290.41, ICD10: F01.518 - stable. 7. Aortic valve disorder - ICD9: 424.1, ICD10: I35.9 - per cardiology 8. Hyperlipidemia, mixed - ICD9: 272.2, ICD10: E78.2 - good control - Continue current medication. 9. Essential hypertension - ICD9: 401.9, ICD10: I10 - good control - Goal of BP <130/80 10. Nonrheumatic aortic valve stenosis - ICD9: 424.1, ICD10: I35.0 - stable. 11. Stage 3 chronic kidney disease, unspecified whether stage 3a or 3b CKD (HCC) - ICD9: 585.3, ICD10: N18.30 - stable. 12. Need for COVID-19 vaccine - ICD9: V04.89, ICD10: Z23 - PFIZER-BIONTECH COVID-19 BIVALENT VACCINE, AGE 12+ YR Guanakito Reno MD documented in this encounterGerman Hospital04-03-2023 Miscellaneous Notes* Telephone Encounter - Corrina Lennon APRN.CNP - 01/16/2023 1:31 PM EDT Script sent. Corrina Lennon APRN.CNP * Telephone Encounter - Pily Syed MA - 01/16/2023 12:40 PM EDT Orders pended for mail order and short term to local pharmacy. [facility]INA 01/19/22 NOV 02/06/23 Pily Syed MA * Telephone Encounter - Winifred Zazueta - 01/16/2023 10:56 AM EDT Patient has been identified by name and date of : Yes Requested Prescriptions Pending Prescriptions Disp Refills atorvastatin (LIPITOR) 80 mg tablet 90 tablet 3 Sig: Take 1 tablet by mouth daily at bedtime. For cholesterol. lisinopril-hydroCHLOROthiazide (ZESTORETIC) 20-12.5 mg per tablet 90 tablet 3 Sig: Take 1 tablet by mouth every morning. RX INSTRUCTIONS: Please send to local pharmacy. Patient is out of medication. Patient aware RX will be sent to pharmacy. No need to notify patient. Winifred Zazueta documented in this encounterGerman Hospital03-30-2023 Miscellaneous Notes* Telephone Encounter - Jimmy Carrizales, [facility] - 01/12/2023 4:25 PM EDT [facility] Anticoagulation Episode Summary Anticoagulation Care Providers Provider Role Specialty Phone number Guanakito Reno MD [facility] [phone] Cal Mitchell is a 77 year old year old male patient being evaluated today for a Telemanagementvisit. Patient is currently on the following anticoagulant(s) Warfarin. Labs PT INR (no units) Date Value 09/28/2022 1.9 (self reporting) 01/24/2022 2.1 biotel 10/26/2021 2.1 (Biotel) INR Home CoaguChek (no units) Date Value 01/10/2023 4.0 12/17/2022 3.0 11/25/2022 3.5 Hemoglobin (g/dL) Date Value 01/18/2022 12.1 10/06/2020 12.3 Hematocrit (%) Date Value 01/18/2022 39.0 10/06/2020 39.0 Platelet Count (k/uL) Date Value 01/18/2022 188 10/06/2020 189 Creatinine (mg/dL) Date Value 01/18/2022 1.83 12/21/2021 1.91 10/06/2020 1.60 07/18/2019 1.46 03/18/2019 1.51 Bilirubin, Total (mg/dL) Date Value 01/18/2022 0.5 10/06/2020 0.4 ALT (U/L) Date Value 01/18/2022 19 10/06/2020 16 AST (U/L) Date Value 01/18/2022 20 10/06/2020 17 CrCl cannot be calculated (Patient's most recent lab result is older than the maximum 180 days allowed.). 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 Paroxysmal atrial fibrillation (hcc) Anticoagulation Episode Summary Current INR goal: 2.0-3.0 Assessment: INR result of 4.0 is SUPRAtherapeutic due to: No obvious cause per daughter January Plan: Current Warfarin Dosing As of 01/09/2023 Full warfarin instructions: 01/11: Hold; Otherwise 7.5 mg every Tue; 5 mg all other days Called and spoke to patient/caregiver Advised patient to hold 1 dose then decrease current regimen Next home INR check scheduled on 01/24/2023 Patient's caregiver verbalizes understanding of the plan. Jimmy Carrizales [facility] Clinical Pharmacist, Pharmacy Anticoagulation Clinic [facility] Pager: [phone]. * Telephone Encounter - Ruthie Mason [facility] - 01/11/2023 9:21 AM EDT [facility] Anticoagulation Episode Summary Anticoagulation Care Providers Provider Role Specialty Phone number Guanakito Reno MD [facility] [phone] Cal Mitchell is a 77 year old year old male patient being evaluated today for a Telemanagementvisit. Patient is currently on the following anticoagulant(s) Warfarin. Labs PT INR (no units) Date Value 09/28/2022 1.9 (self reporting) 01/24/2022 2.1 biotel 10/26/2021 2.1 (Biotel) INR Home CoaguChek (no units) Date Value 01/10/2023 4.0 12/17/2022 3.0 11/25/2022 3.5 Hemoglobin (g/dL) Date Value 01/18/2022 12.1 10/06/2020 12.3 Hematocrit (%) Date Value 01/18/2022 39.0 10/06/2020 39.0 Platelet Count (k/uL) Date Value 01/18/2022 188 10/06/2020 189 Creatinine (mg/dL) Date Value 01/18/2022 1.83 12/21/2021 1.91 10/06/2020 1.60 07/18/2019 1.46 03/18/2019 1.51 Bilirubin, Total (mg/dL) Date Value 01/18/2022 0.5 10/06/2020 0.4 ALT (U/L) Date Value 01/18/2022 19 10/06/2020 16 AST (U/L) Date Value 01/18/2022 20 10/06/2020 17 CrCl cannot be calculated (Patient's most recent lab result is older than the maximum 180 days allowed.). 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: [facility] (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 Paroxysmal atrial fibrillation (hcc) Anticoagulation Episode Summary Current INR goal: 2.0-3.0 Assessment: INR result of 4.0 is SUPRAtherapeutic due to: unknown cause - did not speak to patient Plan: Current Warfarin Dosing As of 01/09/2023 Full warfarin instructions: 01/11: Hold; Otherwise 7.5 mg every Mon, Mon; 5 mg all other days Left voice message Advised patient to hold warfarin today and try to call back to let us know he got our message and discuss the result. LM for both the pt and his daughter, January. Ruthie Cuevas RPh Clinical Pharmacist, Pharmacy Anticoagulation Clinic [facility] Pager: [phone]. * Telephone Encounter - Alejandro Molina RPh - 01/09/2023 4:34 PM EDT Patient was due to test INR today. Will continue to monitor for results. documented in this encounterGerman Hospital03-06-2023 Miscellaneous Notes* Telephone Encounter - Alejandro Molina RPh - 12/19/2022 10:37 AM EST [facility] Anticoagulation Episode Summary Anticoagulation Care Providers Provider Role Specialty Phone number Guanakito Reno MD [facility] Family Medicine [phone] Cal Mitchell is a 77 year old year old male patient being evaluated today for a Telemanagementvisit. Patient is currently on the following anticoagulant(s) Warfarin. Labs PT INR (no units) Date Value 09/28/2022 1.9 (self reporting) 01/24/2022 2.1 biotel 10/26/2021 2.1 (Biotel) INR Home CoaguChek (no units) Date Value 12/17/2022 3.0 11/25/2022 3.5 11/03/2022 2.2 CrCl cannot be calculated (Patient's most recent lab result is older than the maximum 180 days allowed.). 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: Anticoagulation Episode Summary Current INR goal: 2.0-3.0 Assessment: INR result of 3.0 is therapeutic Plan: Current Warfarin Dosing As of 12/19/2022 Full warfarin instructions: 7.5 mg every Tue, Kaye; 5 mg all other days Left voice message Advised patient to continue current weekly dose as noted above Next INR check due on 01/09/2023 Patient instructed to call [facility] at [phone] with any questionsor concerns. Alejandro Molina RPh Clinical Pharmacist, Pharmacy Anticoagulation Clinic [facility] Pager: [phone] documented in this encounterGerman Hospital02-13-2023 Miscellaneous Notes* Telephone Encounter - Alejandro Molina RPh - 11/28/2022 10:18 AM EST [facility] Anticoagulation Episode Summary Anticoagulation Care Providers Provider Role Specialty Phone number Guanakito Reno MD [facility] Medicine [phone] Cal Mitchell is a 77 year old year old male patient being evaluated today for a Telemanagementvisit. Patient is currently on the following anticoagulant(s) Warfarin. Labs PT INR (no units) Date Value 09/28/2022 1.9 (self reporting) 01/24/2022 2.1 biotel 10/26/2021 2.1 (Biotel) INR Home CoaguChek (no units) Date Value 11/25/2022 3.5 11/03/2022 2.2 10/20/2022 3.4 CrCl cannot be calculated (Patient's most recent lab result is older than the maximum 180 days allowed.). 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: Anticoagulation Episode Summary Current INR goal: 2.0-3.0 Assessment: INR result of 3.5 is SUPRAtherapeutic due to: unknown cause - did not speak to patient Plan: Current Warfarin Dosing As of 11/28/2022 Full warfarin instructions: 7.5 mg every Tue, Kaye; 5 mg all other days Left voice message Advised patient to decrease dose for 1 day only then resume weekly regimen Next INR check due on 12/09/2022 Patient instructed to call [facility] at [phone] with any questionsor concerns. Alejandro Molina RPh Clinical Pharmacist, Pharmacy Anticoagulation Clinic [facility] Pager: [phone] documented in this encounterGerman Hospital02-03-2023 Miscellaneous Notes* Telephone Encounter - Kamran Ayon RPh - 11/18/2022 12:49 PM EST Patient due to test INR today. Will continue to monitor for results. Kamran Ayon RPh documented in this encounterGerman Hospital01-20-2023 Miscellaneous Notes* Telephone Encounter - Kamran Ayon RPh - 11/04/2022 8:02 AM EST [facility] Anticoagulation Episode Summary Anticoagulation Care Providers Provider Role Specialty Phone number Guanakito Reno MD [facility] Internal Medicine [phone] Cal Mitchell is a 77 year old year old male patient being evaluated today for a Telemanagementvisit. Patient is currently on the following anticoagulant(s) Warfarin. Labs PT INR (no units) Date Value 09/28/2022 1.9 (self reporting) 01/24/2022 2.1 biotel 10/26/2021 2.1 (Biotel) INR Home CoaguChek (no units) Date Value 11/03/2022 2.2 10/20/2022 3.4 09/28/2022 1.9 Hemoglobin (g/dL) Date Value 01/18/2022 12.1 10/06/2020 12.3 Hematocrit (%) Date Value 01/18/2022 39.0 10/06/2020 39.0 Platelet Count (k/uL) Date Value 01/18/2022 188 10/06/2020 189 Creatinine (mg/dL) Date Value 01/18/2022 1.83 12/21/2021 1.91 10/06/2020 1.60 07/18/2019 1.46 03/18/2019 1.51 Bilirubin, Total (mg/dL) Date Value 01/18/2022 0.5 10/06/2020 0.4 ALT (U/L) Date Value 01/18/2022 19 10/06/2020 16 AST (U/L) Date Value 01/18/2022 20 10/06/2020 17 CrCl cannot be calculated (Patient's most recent lab result is older than the maximum 180 days allowed.). 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: [facility] (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 Paroxysmal atrial fibrillation (hcc) Anticoagulation Episode Summary Current INR goal: 2.0-3.0 Assessment: INR result of 2.2 is therapeutic Plan: Current Warfarin Dosing As of 11/04/2022 Full warfarin instructions: 7.5 mg every Tue, Kaye; 5 mg all other days; Starting 11/04/2022 Sent [email or web address] message Advised patient to continue current weekly dose as noted above Next home INR check scheduled on 11/18/2022 Kamran Ayon RPh Clinical Pharmacist, Pharmacy Anticoagulation Clinic [facility] Pager: [phone]. documented in this encounterGerman Hospital01-17-2023 Miscellaneous Notes* Telephone Encounter - Twin Cole RPh - 11/01/2022 10:30 AM EST Patient due to test INR today. Will continue to monitor for results. Twin Cole RPh documented in this encounterGerman Hospital01-10-2023 Miscellaneous Notes* Telephone Encounter - Twin Cole RPh - 10/25/2022 4:30 PM EST [facility] Anticoagulation Episode Summary Anticoagulation Care Providers Provider Role Specialty Phone number Guanakito Reno MD [facility] Internal Medicine [phone] Cal Mitchell is a 77 year old year old male patient being evaluated today for a Telemanagementvisit. Patient is currently on the following anticoagulant(s) Warfarin. Labs PT INR (no units) Date Value 09/28/2022 1.9 (self reporting) 01/24/2022 2.1 biotel 10/26/2021 2.1 (Biotel) INR Home CoaguChek (no units) Date Value 10/20/2022 3.4 09/28/2022 1.9 09/14/2022 1.8 Hemoglobin (g/dL) Date Value 01/18/2022 12.1 10/06/2020 12.3 Hematocrit (%) Date Value 01/18/2022 39.0 10/06/2020 39.0 Platelet Count (k/uL) Date Value 01/18/2022 188 10/06/2020 189 Creatinine (mg/dL) Date Value 01/18/2022 1.83 12/21/2021 1.91 10/06/2020 1.60 07/18/2019 1.46 03/18/2019 1.51 Bilirubin, Total (mg/dL) Date Value 01/18/2022 0.5 10/06/2020 0.4 ALT (U/L) Date Value 01/18/2022 19 10/06/2020 16 AST (U/L) Date Value 01/18/2022 20 10/06/2020 17 CrCl cannot be calculated (Patient's most recent lab result is older than the maximum 180 days allowed.). 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 Plan: Current Warfarin Dosing As of 10/19/2022 Full warfarin instructions: 10/25: 5 mg; Otherwise 7.5 mg every e, Kaye; 5 mg all other days; Starting 10/19/2022 Called and spoke to patient/caregiver spouse Advised patient to decrease dose for 1 day only then resume weekly regimen Next home INR check scheduled on 11/01/2022 Patient's caregiver verbalizes understanding of the plan. Twin Cole RPh Clinical Pharmacist, Pharmacy Anticoagulation Clinic [facility] Pager: [phone]. * Telephone Encounter - Ruthie Cuevas RPh - 10/19/2022 4:33 PM EST Patient was due to test INR today will continue to monitor for results. Ruthie Cuevas PharmD documented in this encounterGerman Hospital12-20-2022 History of Present illness Narrative* Alondra Prescott DO - 10/04/2022 10:58 AM EST This office note has been dictated. Alondra Prescott DO * Alondra Prescott DO - 10/04/2022 12:00 AM EST NAME: [facility] NO: [id number] DATE OF SERVICE: 10/04/2022 Subjective: Mr. Mitchell is here to follow up on carotid artery disease. He denies any focal neurologic deficit. Denies any monocular vision loss, numbness, weakness. He does minimal activity throughout the day. He was diagnosed with significant aortic stenosis, however, his activity is very minimal. Even if he stands and walks for about 10 feet, he will get short of breath, however, that is with significant prodding from his daughter to do any kind of activity. He is on Coumadin, Plavix and Lipitor without any issues. Objective: His vital signs are stable. He is in no distress. He has no significant neurologic deficit. Reviewed his carotid duplex. His right ICA is 20-39%, his left is 60-79%. Assessment/Plan: Carotid artery disease. Reviewed the findings with Mr. Mitchell and his daughter. Would recommend that he follow up with us in six months with repeat imaging, or sooner with any concerns. Alondra Prescott D.O. KB/[id number] Audio #: [id number] Date Dictated: 10/04/2022 10:13:59 Date Typed: 10/05/2022 14:12:47 Date Revised: documented in this encounterGerman Hospital12-15-2022 Miscellaneous Notes* Telephone Encounter - Jimmy Carrizales, [facility] - 09/29/2022 4:38 PM EST [facility] Anticoagulation Episode Summary Anticoagulation Care Providers Provider Role Specialty Phone number Guanakito Reno MD [facility] [phone] Cal Mitchell is a 77 year old year old male patient being evaluated today for a Telemanagementvisit. Patient is currently on the following anticoagulant(s) Warfarin. Labs PT INR (no units) Date Value 09/28/2022 1.9 (self reporting) 01/24/2022 2.1 biotel 10/26/2021 2.1 (Biotel) INR Home CoaguChek (no units) Date Value 09/14/2022 1.8 07/29/2022 2.2 07/04/2022 2.7 Hemoglobin (g/dL) Date Value 01/18/2022 12.1 10/06/2020 12.3 Hematocrit (%) Date Value 01/18/2022 39.0 10/06/2020 39.0 Platelet Count (k/uL) Date Value 01/18/2022 188 10/06/2020 189 Creatinine (mg/dL) Date Value 01/18/2022 1.83 12/21/2021 1.91 10/06/2020 1.60 07/18/2019 1.46 03/18/2019 1.51 Bilirubin, Total (mg/dL) Date Value 01/18/2022 0.5 10/06/2020 0.4 ALT (U/L) Date Value 01/18/2022 19 10/06/2020 16 AST (U/L) Date Value 01/18/2022 20 10/06/2020 17 CrCl cannot be calculated (Patient's most recent lab result is older than the maximum 180 days allowed.). 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 No V-8 juice, Ensure/Boost, carnation instant breakfast or soy products. Plan: Current Warfarin Dosing As of 09/21/2022 Full warfarin instructions: 09/28: 7.5 mg; 09/29: 5 mg; Otherwise 7.5 mg every Tue, Kaye; 5 mg all other days; Starting 09/21/2022 Called and spoke to patient/caregiver - January patient's daughter Advised patient to increase total weekly regimen Next home INR check scheduled on 10/19/2022 Patient's caregiver verbalizes understanding of the plan. Patient denies need for refills. Jimmy Carrizales RPh Clinical Pharmacist, Pharmacy Anticoagulation Clinic [facility] Pager: [phone]. * Telephone Encounter - Ruben Cunningham (Spray Drier Operator Helper) - 09/29/2022 2:23 PM EST PATIENT CALL Patient's daughter January called call center regarding results. Patient's daughter stated the INR result was 1.9 last night at 9:30 pm and gave him an extra 1/2 tablet of warfarin. January will reach out to De to report result and to have them troubleshoot application for new phone. PT INR (no units) Date Value 01/24/2022 2.1 biotel 10/26/2021 2.1 (Biotel) 03/04/2021 2.4 INR Home CoaguChek (no units) Date Value 09/14/2022 1.8 07/29/2022 2.2 07/04/2022 2.7 Patient stated [facility] She asked if she needed to be near the meterto report the results over the phone to De--advised her I am not sure. January can be reached at [phone] Ruben Cunningham (Spray Drier Operator Helper) * Telephone Encounter - Ruthie Cuevas RPh - 09/28/2022 9:49 AM EST Cal Mitchell was called and reminded to test INR today or as soon as possible. LM on home/cellwhich may be his daughter, Elly's number. Ruthie Cuevas PharmD [facility] * Telephone Encounter - Ruthie Cuevas RPh - 09/21/2022 9:51 AM EST Patient was due to test INR today will continue to monitor for results. Ruthie Cuevas PharmD [facility] documented in this encounterGerman Hospital12-09-2022 Miscellaneous Notes* Telephone Encounter - Yasemin Cook - 09/23/2022 1:54 PM EST Patient has been identified by name and date of : Yes Last office visit in this department: 01/19/2022 RX INSTRUCTIONS: Patient aware RX will be sent to pharmacy. No need to notify patient. Patient phones requesting refills as follows: Requested Prescriptions Pending Prescriptions Disp Refills atorvastatin (LIPITOR) 80 mg tablet 14 tablet 0 Sig: Take 1 tablet by mouth daily at bedtime for 14 days. For cholesterol. lisinopril-hydroCHLOROthiazide (PRINZIDE,ZESTORETIC) 20-12.5 mg per tablet 90 tablet 3 Sig: Take 1 tablet by mouth every morning. Please review and advise. Yasemin Cook documented in this encounterGerman Hospital12-01-2022 Miscellaneous Notes* Telephone Encounter - Yamilka Heath RN - 09/15/2022 2:37 PM EST Spoke with patient's dtr January who stated he has a new phone and is having problems with the pedro, so she has been calling in INR results. She called in result on 08/22/22 for 2.1 but it did not register. January also stated when she calls in she's only asked for and not patient's name. Messaged Christine and Quoc at [facility]. Apurva Heath RN Pharmacy [facility]tico[facility] * Telephone Encounter - Jimmy Carrizales, [facility] - 09/15/2022 10:24 AM EST [facility] Anticoagulation Episode Summary Anticoagulation Care Providers Provider Role Specialty Phone number Guanakito Reno MD [facility] [phone] Cal Mitchell is a 77 year old year old male patient being evaluated today for a Telemanagementvisit. Patient is currently on the following anticoagulant(s) Warfarin. Labs PT INR (no units) Date Value 01/24/2022 2.1 biotel 10/26/2021 2.1 (Biotel) 03/04/2021 2.4 INR Home CoaguChek (no units) Date Value 09/14/2022 1.8 07/29/2022 2.2 07/04/2022 2.7 Hemoglobin (g/dL) Date Value 01/18/2022 12.1 10/06/2020 12.3 Hematocrit (%) Date Value 01/18/2022 39.0 10/06/2020 39.0 Platelet Count (k/uL) Date Value 01/18/2022 188 10/06/2020 189 Creatinine (mg/dL) Date Value 01/18/2022 1.83 12/21/2021 1.91 10/06/2020 1.60 07/18/2019 1.46 03/18/2019 1.51 Bilirubin, Total (mg/dL) Date Value 01/18/2022 0.5 10/06/2020 0.4 ALT (U/L) Date Value 01/18/2022 19 10/06/2020 16 AST (U/L) Date Value 01/18/2022 20 10/06/2020 17 CrCl cannot be calculated (Patient's most recent lab result is older than the maximum 180 days allowed.). 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 Paroxysmal atrial fibrillation (hcc) Anticoagulation Episode Summary Current INR goal: 2.0-3.0 Assessment: INR result of is SUBtherapeutic due to: unknown cause - did not speak to patient Plan: Current Warfarin Dosing As of 08/22/2022 Full warfarin instructions: 09/15: 7.5 mg; Otherwise 7.5 mg every Tue; 5 mg all other days; Zwkgivll64/7/2022 Called and spoke to patient/caregiver - per demographics we only have daughter's phone number but no identifier Advised patient to increase dose for 1 day only then resume weekly regimen Next home INR check scheduled on 09/21/2022 Jimmy Carrizales [facility] Clinical Pharmacist, Pharmacy Anticoagulation Clinic Pharmacy Anticoagulation Clinic Pager: [phone]. * Telephone Encounter - Alejandro Molina RPh - 09/05/2022 5:31 PM EST Added to discharge list. * Telephone Encounter - Ruthie Cuevas RPh - 08/29/2022 4:49 PM EST Cal Lua Paula was called and reminded to test INR today or as soon as possible. LM on his home/cell number. Ruthie Cuevas, [place] * Telephone Encounter - Alejandro Molina RP - 08/22/2022 4:42 PM EST Patient was due to test INR today. Will continue to monitor for results. documented in this encounterGerman Hospital11-23-2022 History of Present illness Narrative* Lizette Cardenas RN - 09/07/2022 6:24 AM EST ACM LUIS RN Action/FYI: Medication Adherence review completed per request of [facility]. NO PROVIDER ACTION REQUIRED Lisinopril/Hctz 20-12.5mg Last filled: 05/21/22 Days Supply: 90 Refill Due: 08/19/22 [facility]acy[facility] Atorvastatin 80mg Last filled: 03/20/22 Days Supply: 90 Refill Due: 06/28/22 [facility]acy[facility] MY CHART MESSAGE SENT Patient identified by name and date of . Patient Attributed To: [facility] Payer: [facility] Reason for review or outreach: Medication Adherence Medication Adherence Review Details: Cholesterol and Hypertension Summary / Findings: As per above Action Taken: Data submitted to [employer] message to patient Contact made with patient: No, Chart review only. Signature: Lizette Cardenas RN documented in this encounterGerman Hospital10-31-2022 History of Present illness Narrative* Pam Reddy MD - 08/15/2022 3:48 PM EDT Images from the original note were not included. Pam Reddy MD Inter[facility] [place] [address], [place] [address] [phone] Chief Complaint Patient presents with: Consult HISTORY OF PRESENT ILLNESS: Mr. Mitchell is a 77 year old male seen for assessment management of aortic valve stenosis and paroxysmal atrial fibrillation Patient had no prior history of coronary artery disease no stenting or bypass surgery diagnosed with paroxysmal atrial fibrillation maintained on anticoagulation He is not aware of any symptoms no palpitation he is short of breath with exertion Last echocardiography was done in 2020 shows moderate aortic stenosis with a peak gradient of 33 mean gradient of 18 with dimensionless index of 0.29 with LVOT stroke-volume of 24 mill per square meter With a low-flow low gradient aortic stenosis Patient denies symptoms or signs of congestive heart failure but he does have bilateral mild leg swelling Cardiac Risk Factors age (male over 45, female over 55), hyperlipidemia, obesity, hypertension, family history of CAD PAST MEDICAL HISTORY Diagnosis Date Actinic keratosis 10/20 BPH (benign prostatic hyperplasia) Chronic airway obstruction, not elsewhere classified 10/20 Diabetes (HCC) Diverticulosis of colon (without mention of hemorrhage) Ectatic thoracic aorta (HCC) 06/07/2018 06/07/18 Chest CTA: There is atherosclerotic calcification of the thoracic aorta with mild fusiform ectasia of the descending component measuring 3.2 x 3.1 cm Impacted cerumen 10/20 Obesity, unspecified 11/19 Other and unspecified hyperlipidemia 10/19 Other symptoms involving cardiovascular system 10/20 Peripheral vascular disease, unspecified (HCC) 10/20 R carotid Unspecified essential hypertension 04/18 PAST SURGICAL HISTORY Procedure Laterality Date ARTL CATHJ/CANNULJ MNTR/TRANSFUSION SPX PRQ 04-17-14 COLONOSCOPY FLX DX W/COLLJ SPEC WHEN PFRMD 40 years ago Colonoscopy COLONOSCOPY FLX DX W/COLLJ SPEC WHEN PFRMD 03/02/11 DSTRJ LESION PENIS SIMPLE CHEMICAL 10/20 PAST SURGICAL HISTORY OF Skin tag removals - bilateral axillary REMOVAL IMPACTED CERUMEN INSTRUMENTATION UNILAT 10/20 TEAEC W/PATCH GRF CAROTID VERTB SUBCLAV NECK INC 04-17-14 RIGHT FAMILY HISTORY Problem Relation Age of Onset Heart Mother of CHF Stroke Maternal Grandfather Social History Tobacco Use Smoking status: Former Packs/day: 2.00 Years: 10.00 Pack years: 20.00 Types: Cigarettes Quit date: 12/05/1985 Years since quittin.7 Smokeless tobacco: Never Vaping Use Vaping Use: Never used Substance Use Topics Alcohol use: No Comment: none now; social in past Drug use: No ALLERGIES No Known Allergies Medications: Current Outpatient Medications Medication Sig Dispense Refill clopidogrel (PLAVIX) 75 mg tablet Take 1 tablet by mouth once daily. 90 tablet 1 escitalopram oxalate (LEXAPRO) 10 mg tablet Take 1 tablet by mouth once daily. 90 tablet 3 finasteride (PROSCAR) 5 mg tablet Take 1 tablet by mouth once daily. 90 tablet 3 memantine (NAMENDA) 10 mg tablet Take 1 tablet by mouth once daily. 90 tablet 3 metoprolol succinate ER (TOPROL XL) 50 mg 24 hr tablet Take 1 tablet by mouth once daily. 90 tablet3 pioglitazone (ACTOS) 30 mg tablet Take 1 tablet by mouth once daily. 90 tablet 3 warfarin (COUMADIN) 5 mg tablet 7.5 mg on Monday, 5 mg all other days or as directed 100 tablet 5 lisinopril-hydroCHLOROthiazide (PRINZIDE,ZESTORETIC) 20-12.5 mg per tablet Take 1 tablet by mouth every morning. 90 tablet 3 glimepiride (AMARYL) 2 mg tablet Take 1 tablet by mouth daily with breakfast. 90 tablet 1 atorvastatin (LIPITOR) 80 mg tablet Take 1 tablet by mouth daily at bedtime. For cholesterol. 90 tablet 3 nitroglycerin sublingual (NITROQUICK) 0.4 mg SL tablet Dissolve 1 tablet under the tongue as needed. for chest pain,every 5 min x3 1 Bottle of 25 3 acetaminophen (TYLENOL) 500 mg tablet Take 500 mg by mouth every 8 hours as needed. blood sugar diagnostic (MyTrainerUCH ULTRA TEST) test strip Test blood sugar(s) one times daily. Dx: 250.00. Insulin: No 150 Strip 3 Lancets (ONE TOUCH DELICA) [facility] lancets Test blood sugar(s) one time daily. Dx: 250.00. Insulin: No1 Each 0 clopidogrel (PLAVIX) 75 mg tablet Take 1 tablet by mouth once daily. 7 tablet 0 lisinopril-hydroCHLOROthiazide (PRINZIDE,ZESTORETIC) 20-12.5 mg per tablet Take 1 tablet by mouth every morning. 14 tablet 0 Current Facility-Administered Medications Medication Dose Route Frequency Provider Last Rate Last Admin perflutren lipid microspheres 1.3 mL in NaCl (PF) 0.9% 10 mL injection (DEFINITY) INTRAVENOUS DIRECTED PRN Pam Reddy MD sodium chloride 0.9 % (flush) 10 mL (BD POSIFLUSH) 10 mL INTRAVENOUS DIRECTED PRN Pam Reddy MD Review of Systems Constitutional: Negative for chills, diaphoresis, fever, malaise/fatigue and weight loss. HENT: Negative for congestion, ear discharge, ear pain, hearing loss, nosebleeds, sinus pain, sore throat and tinnitus. Eyes: Negative for blurred vision, double vision, photophobia, pain, discharge and redness. Respiratory: Positive for shortness of breath. Negative for cough, hemoptysis, sputum production, wheezing and stridor. Cardiovascular: Negative for chest pain, palpitations, orthopnea, claudication, leg swelling and PND. Gastrointestinal: Negative for abdominal pain, blood in stool, constipation, diarrhea, heartburn, melena, nausea and vomiting. Genitourinary: Negative for dysuria, flank pain, frequency, hematuria and urgency. Musculoskeletal: Negative for back pain, falls, joint pain, myalgias and neck pain. Skin: Negative for itching and rash. Neurological: Negative for dizziness, tingling, tremors, sensory change, speech change, focal weakness, seizures, loss of consciousness, weakness and headaches. Endo/Heme/Allergies: Negative for environmental allergies and polydipsia. Does not bruise/bleed easily. Psychiatric/Behavioral: Negative for depression, hallucinations, memory loss, substance abuse and suicidal ideas. The patient is not nervous/anxious and does not have insomnia. Physical Examination: Vitals:BP 114/62 Pulse 58 Resp 18 Ht 5' 9" (1.75m) Wt 263 lb (119.3kg) SpO2 98% BMI 38.82 kg/(m^2). BP w/Orthostatic Vitals Date and Time Orthostatic BP Orthostatic Pulse BP Pulse BP Position BP Site BP Cuff Size 08/15/22 1450 -- -- 114/62 58 Sitting Right Arm Large Adult Peak Flow Date and Time PF Resp 08/15/22 1450 -- 18 Last 2 Encounter Wt Readings: Date: Wt: 08/15/2022 263 lb (119.3 kg) 03/29/2022 252 lb (114.3 kg) Physical Exam Constitutional: General: He is not in acute distress. Appearance: He is not diaphoretic. HENT: Head: Normocephalic and atraumatic. Right Ear: External ear normal. Left Ear: External ear normal. Nose: Nose normal. Mouth/Throat: Pharynx: Oropharynx is clear. Eyes: General: Right eye: No discharge. Left eye: No discharge. Conjunctiva/sclera: Conjunctivae normal. Pupils: Pupils are equal, round, and reactive to light. Cardiovascular: Rate and Rhythm: Normal rate and regular rhythm. Heart sounds: S1 normal and S2 normal. Murmur heard. No friction rub. No gallop. No S3 or S4 sounds. Pulmonary: Effort: Pulmonary effort is normal. No respiratory distress. Breath sounds: Normal breath sounds. No wheezing or rales. Chest: Chest wall: No tenderness. Musculoskeletal: General: Normal range of motion. Cervical back: Normal range of motion and neck supple. Skin: General: Skin is warm and dry. Neurological: Mental Status: He is alert and oriented to person, place, and time. Psychiatric: Mood and Affect: Mood normal. Behavior: Behavior normal. Thought Content: Thought content normal. Judgment: Judgment normal. Pertinent Labs: CBC: Hemoglobin (g/dL) Date Value 01/18/2022 12.1 10/06/2020 12.3 Hematocrit (%) Date Value 01/18/2022 39.0 10/06/2020 39.0 WBC (k/uL) Date Value 01/18/2022 7.20 10/06/2020 5.94 Platelet Count (k/uL) Date Value 01/18/2022 188 10/06/2020 189 BMP: Glucose (mg/dL) Date Value 01/18/2022 117 10/06/2020 121 Potassium (mmol/L) Date Value 01/18/2022 4.1 10/06/2020 3.8 Sodium (mmol/L) Date Value 01/18/2022 140 10/06/2020 138 Chloride (mmol/L) Date Value 01/18/2022 101 10/06/2020 103 CO2 (mmol/L) Date Value 01/18/2022 25 10/06/2020 25 Creatinine (mg/dL) Date Value 01/18/2022 1.83 10/06/2020 1.60 BUN (mg/dL) Date Value 01/18/2022 19 10/06/2020 26 Anion Gap (mmol/L) Date Value 01/18/2022 14 10/06/2020 10 Calcium (mg/dL) Date Value 10/06/2020 9.0 Calcium, Total (mg/dL) Date Value 01/18/2022 9.2 INR: Lipid Profile: Total Cholesterol, Nonfasting Date Value Ref Range Status 12/21/2021 171 <200 mg/dL Final Comment: <200 mg/dL, Desirable 200-239 mg/dL, Borderline high >239 mg/dL, High HDL Cholesterol, Nonfasting Date Value Ref Range Status 12/21/2021 41 >39 mg/dL Final Comment: 40-59 mg/dL, Acceptable >59 mg/dL, High: Negative risk factor for coronary heart disease <40 mg/dL, Low: Positive risk factor for coronary heart disease LDL Cholesterol, Nonfasting Date Value Ref Range Status 12/21/2021 98 <100 mg/dL Final Comment: <100 mg/dL, Optimal 100-129 mg/dL, Near optimal/above optimal 130-159 mg/dL, Borderline high 160-189 mg/dL, High >189 mg/dL, Very high Secondary prevention optimal LDL Cholesterol levels are recommended to be < 70 mg/dL Triglycerides, Nonfasting Date Value Ref Range Status 12/21/2021 162 (H) <150 mg/dL Final Comment: <150 mg/dL, Normal 150-199 mg/dL, Borderline high 200-499 mg/dL, High >499 mg/dL, Very high Hemoglobin A1C: No results found for: HGBA1C TSH: No results found for: TSHREFL Prior Cardiac Testing ekg Assessment and Plan: 77 years old gentleman with paroxysmal atrial fibrillation and moderate aortic stenosis 1. Atrial fibrillation On rate control medication metoprolol and he is on warfarin 2. Aortic stenosis Moderate aortic stenosis in 2020 and get a repeat his echo to assess severity of his aortic valve I had extensive discussion regarding the possibility of intervention if indicated Educated the patient's regarding symptoms and signs of congestive heart failure Currently patient is in sinus rhythm Follow up plannin months Electronically signed by Pam Reddy MD on August 15, 2022, 3:48 PM The above note was partially created using a dictation recognition software. A reasonable attempt has been made to correct any errors. documented in this encounterGerman Hospital10-17-2022 Miscellaneous Notes* Telephone Encounter - Alejandro Molina [facility] - 08/01/2022 9:52 AM EDT [facility] Anticoagulation Episode Summary Anticoagulation Care Providers Provider Role Specialty Phone number Guanakito Reno MD [facility] Family Medicine [phone] Cal Mitchell is a 77 year old year old male patient being evaluated today for a Telemanagementvisit. Patient is currently on the following anticoagulant(s) Warfarin. Labs PT INR (no units) Date Value 01/24/2022 2.1 biotel 10/26/2021 2.1 (Biotel) 03/04/2021 2.4 INR Home CoaguChek (no units) Date Value 07/29/2022 2.2 07/04/2022 2.7 06/13/2022 2.9 CrCl cannot be calculated (Patient's most recent lab result is older than the maximum 180 days allowed.). 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: Anticoagulation Episode Summary Current INR goal: 2.0-3.0 Assessment: INR result of 2.2 is therapeutic Plan: Current Warfarin Dosing As of 08/01/2022 Full warfarin instructions: 7.5 mg every Tue; 5 mg all other days Left voice message Advised patient to continue current weekly dose as noted above Next INR check due on 08/22/2022 Patient instructed to call [facility] at [phone] with any questionsor concerns. Alejandro Molina RPh Clinical Pharmacist, Pharmacy Anticoagulation Clinic Pharmacy Anticoagulation Clinic Pager: [phone] documented in this encounterGerman Hospital10-07-2022 Miscellaneous Notes* Telephone Encounter - Darrell Meyer LPN - 07/22/2022 3:27 PM EDT Patient phones requesting refills as follows: Requested Prescriptions Pending Prescriptions Disp Refills clopidogrel (PLAVIX) 75 mg tablet 90 tablet 1 Sig: Take 1 tablet by mouth once daily. clopidogrel (PLAVIX) 75 mg tablet 7 tablet 0 Sig: Take 1 tablet by mouth once daily. FAINA 01/19/22 NOV no upcoming appt Please review and advise. Darrell Meyer LPN documented in this encounterGerman Hospital09-20-2022 Miscellaneous Notes* Telephone Encounter - Twin Cole RPh - 07/05/2022 9:30 AM EDT [facility] Anticoagulation Episode Summary Anticoagulation Care Providers Provider Role Specialty Phone number Guanakito Reno MD [facility] [phone] Cal Mitchell is a 77 year old year old male patient being evaluated today for a Telemanagementvisit. Patient is currently on the following anticoagulant(s) Warfarin. Labs PT INR (no units) Date Value 01/24/2022 2.1 biotel 10/26/2021 2.1 (Biotel) 03/04/2021 2.4 INR Home CoaguChek (no units) Date Value 07/04/2022 2.7 06/13/2022 2.9 05/15/2022 1.9 Hemoglobin (g/dL) Date Value 01/18/2022 12.1 10/06/2020 12.3 Hematocrit (%) Date Value 01/18/2022 39.0 10/06/2020 39.0 Platelet Count (k/uL) Date Value 01/18/2022 188 10/06/2020 189 Creatinine (mg/dL) Date Value 01/18/2022 1.83 12/21/2021 1.91 10/06/2020 1.60 07/18/2019 1.46 03/18/2019 1.51 Bilirubin, Total (mg/dL) Date Value 01/18/2022 0.5 10/06/2020 0.4 ALT (U/L) Date Value 01/18/2022 19 10/06/2020 16 AST (U/L) Date Value 01/18/2022 20 10/06/2020 17 CrCl cannot be calculated (Unknown ideal weight.). 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: Anticoagulation Episode Summary Current INR goal: 2.0-3.0 Assessment: INR result of 2.7 is therapeutic Plan: Current Warfarin Dosing As of 2022 Full warfarin instructions: 7.5 mg every Tue; 5 mg all other days Left voice message on home number Advised patient to continue current weekly dose as noted above Next home INR check scheduled on 07/19/2022 Twin Cole RPh Clinical Pharmacist, Pharmacy Anticoagulation Clinic Pharmacy Anticoagulation Clinic Pager: [phone]. * Telephone Encounter - Alejandro Molina RPh - 07/04/2022 3:42 PM EDT Cal Mitchell was called and reminded to test INR today or as soon as possible. * Telephone Encounter - Alejandro Molina [facility] - 2022 4:11 PM EDT Patient was due to test INR today. Will continue to monitor for results. documented in this encounterGerman Hospital08-30-2022 Miscellaneous Notes* Telephone Encounter - Twin Cole [facility] - 06/14/2022 9:14 AM EDT [facility] Anticoagulation Episode Summary Anticoagulation Care Providers Provider Role Specialty Phone number Guanakito Reno MD [facility] [phone] Cal Mitchell is a 76 year old year old male patient being evaluated today for a Telemanagementvisit. Patient is currently on the following anticoagulant(s) Warfarin. Labs PT INR (no units) Date Value 01/24/2022 2.1 biotel 10/26/2021 2.1 (Biotel) 03/04/2021 2.4 INR Home CoaguChek (no units) Date Value 06/13/2022 2.9 05/15/2022 1.9 04/25/2022 2.5 Hemoglobin (g/dL) Date Value 01/18/2022 12.1 10/06/2020 12.3 Hematocrit (%) Date Value 01/18/2022 39.0 10/06/2020 39.0 Platelet Count (k/uL) Date Value 01/18/2022 188 10/06/2020 189 Creatinine (mg/dL) Date Value 01/18/2022 1.83 12/21/2021 1.91 10/06/2020 1.60 07/18/2019 1.46 03/18/2019 1.51 Bilirubin, Total (mg/dL) Date Value 01/18/2022 0.5 10/06/2020 0.4 ALT (U/L) Date Value 01/18/2022 19 10/06/2020 16 AST (U/L) Date Value 01/18/2022 20 10/06/2020 17 Estimated Creatinine Clearance: 41.5 mL/min (A) (based on SCr of 1.83 mg/dL (H)). 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: Anticoagulation Episode Summary Current INR goal: 2.0-3.0 Assessment: INR result of 2.9 is therapeutic Plan: Current Warfarin Dosing As of 06/06/2022 Full warfarin instructions: 7.5 mg every Tue; 5 mg all other days Left voice message Advised patient to continue current weekly dose as noted above Next home INR check scheduled on 2022 Twin Cole RPh Clinical Pharmacist, Pharmacy Anticoagulation Clinic Pharmacy Antico[facility] Clinic Pager: [phone]. * Telephone Encounter - Val Oliver RPh - 06/13/2022 9:09 AM EDT [employer] message sent as a reminder to test INR RAISSA. * Telephone Encounter - Alejandro Molina RPh - 06/06/2022 4:50 PM EDT Patient was due to test INR today. Will continue to monitor for results. documented in this encounterGerman Hospital08-30-2022 History of Present illness Narrative* Nirmala CHANCE Lim - 06/14/2022 9:03 AM EDT POPULATION HEALTH NAVIGATION OUTREACH Action/I Called and left a message to call [phone], to discuss health maintenance items that are due. Sent My Chart message. PCP appt: 01/19- needs follow up per last ov note My chart activation: active Advance directive: needs info HM due: Follow up ARIAN AD Pt identified by name and : NO Outreach Outcome/Action Unable to reach patient: Left message MyChart message sent Did you use a PCP flex slot to schedule this appointment? N/A Reason for Outreach Care Gap or Scheduling/Wellness visits Payer: Payor: [facility] / Plan: [employer] AARP MEDICARE HMO / Product Type: HMO / Care Gap Reviewed:: Follow-up appointment Diabetic Eye Exam Reminder: Reminder note to check Health Maintenance for items below Health Maintenance items due: HEPATITIS C SCREENING Never done SHINGRIX VACCINE(1 of 2) Never done DILATED RETINAL EXAM due on 12/05/2019 DIABETIC FOOT EXAM due on 01/18/2020 ADVANCE DIRECTIVE DISCUSSION Never done COVID-19 VACCINE(4 - Booster for Moderna series) due on 04/12/2022 Message Sent to Practice: No Navigation Signature: Nirmala Lim MA June 14, 2022 9:05 AM documented in this encounterGerman Hospital08-04-2022 Miscellaneous Notes* Telephone Encounter - Huong Whittaker Ma - 05/19/2022 12:50 PM EDT Patient last visit with PCP 01/19/22 Follow up appointment scheduled none Huong Whittaker Ma * Telephone Encounter - Yasemin Horne - 05/19/2022 12:01 PM EDT Patient's daughter, Socorro, is calling to renew her dad's scripts through [facility]. His Lisinopril may not make it to him in time, so would like another 14 day script sent locally andthen the traditional 90 day with refill sent to [facility]. * Telephone Encounter - Yasemin Horne - 05/19/2022 11:56 AM EDT Pharmacy verified in [facility] Patient has been identified by name and date of : Yes Patient aware RX will be sent to pharmacy. No need to notify patient. Daughter phones for refill(s): Pending Prescriptions Disp Refills ESCITALOPRAM 10 MG TABLET 90 tablet 3 Sig: Take 1 tablet by mouth once daily. GIANCARLO: No FINASTERIDE 5 MG TABLET 90 tablet 3 Sig: Take 1 tablet by mouth once daily. GIANCARLO: No MEMANTINE 10 MG TABLET 90 tablet 3 Sig: Take 1 tablet by mouth once daily. GIANCARLO: No METOPROLOL SUCCINATE ER 50 MG TABLET,EXTENDED RELEASE 24 HR 90 tablet 3 Sig: Take 1 tablet by mouth once daily. GIANCARLO: No PIOGLITAZONE 30 MG TABLET 90 tablet 3 Sig: Take 1 tablet by mouth once daily. GIANCARLO: No WARFARIN 5 MG TABLET 100 tablet 5 Si.5 mg on Monday, 5 mg all other days or as directed GIANCARLO: No LISINOPRIL 20 MG-HYDROCHLOROTHIAZIDE 12.5 MG TABLET 14 tablet 0 Sig: Take 1 tablet by mouth every morning. GIANCARLO: No LISINOPRIL 20 MG-HYDROCHLOROTHIAZIDE 12.5 MG TABLET 90 tablet 3 Sig: Take 1 tablet by mouth every morning. GIANCARLO: No Date of last office visit : 01/19/2022 Date of next office visit : Visit date not found Last 2 Encounter Wt Readings: Date: Wt: 03/29/2022 114.3 kg (252 lb) 01/19/2022 121.1 kg (267 lb) Please advise. Yasemin Garcia Pss documented in this encounterGerman Hospital08-01-2022 Miscellaneous Notes* Telephone Encounter - Alejandro Molina, [facility] - 05/16/2022 11:54 AM EDT [facility] Anticoagulation Episode Summary Anticoagulation Care Providers Provider Role Specialty Phone number Guanakito Reno MD [facility] Practice [phone] Cal Mitchell is a 76 year old year old male patient being evaluated today for a Telemanagementvisit. Patient is currently on the following anticoagulant(s) Warfarin. Labs PT INR (no units) Date Value 01/24/2022 2.1 biotel 10/26/2021 2.1 (Biotel) 03/04/2021 2.4 INR Home CoaguChek (no units) Date Value 05/15/2022 1.9 04/25/2022 2.5 04/02/2022 2.2 Estimated Creatinine Clearance: 41.5 mL/min (A) (based on SCr of 1.83 mg/dL (H)). 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: Anticoagulation Episode Summary Current INR goal: 2.0-3.0 Assessment: INR result of 1.9 is SUBtherapeutic due to: unknown cause - did not speak to patient Plan: Current Warfarin Dosing As of 05/16/2022 Full warfarin instructions: 05/16: 7.5 mg; Otherwise 7.5 mg every Tue; 5 mg all other days Left voice message Advised patient to increase dose for 1 day only then resume weekly regimen Next INR check due on 06/06/2022 Patient instructed to call [facility] at [phone] with any questionsor concerns. Alejandro Molina [facility] Clinical Pharmacist, Pharmacy [facility] Pager: [phone] documented in this encounterGerman Hospital07-11-2022 Miscellaneous Notes* Telephone Encounter - Val Oliver RP - 04/25/2022 7:56 AM EDT Last INR due around 04/18. Faneart message sent as a reminder to test INR RAISSA. PT INR (no units) Date Value 01/24/2022 2.1 biotel 10/26/2021 2.1 (Biotel) 03/04/2021 2.4 INR Home CoaguChek (no units) Date Value 04/02/2022 2.2 03/09/2022 2.6 02/10/2022 3.4 documented in this encounterGerman Hospital06-15-2022 Miscellaneous Notes* Telephone Encounter - Ruthie Cuevas RP - 03/30/2022 2:31 PM EDT Cal Lua Paula was called and reminded to test INR today or as soon as possible. LM asking him to test. Ruthie Cuevas PharmD * Telephone Encounter - Ruthie Cuevas RP - 03/23/2022 4:50 PM EDT Patient was due to test INR today will continue to monitor for results. Of note - we LM last time and he didn't read our last MYC msg either. Ruthie Cuevas PharmD documented in this encounterGerman Hospital06-01-2022 Miscellaneous Notes* Telephone Encounter - Nicki Nieto - 03/16/2022 10:46 AM EDT Patient is scheduled for an appt on 03/22/22 in [place]. Did call the patient to see if any external imagine has been complete, left VM to call the office Or record indicates no testing has been completed since 2019 Would you like an updated carotid US Order pending please sign if correct Thanks documented in this encounterGerman Hospital05-25-2022 Miscellaneous Notes* Telephone Encounter - Ruthie Cuevas RPh - 03/09/2022 4:08 PM EDT [facility] Anticoagulation Episode Summary Anticoagulation Care Providers Provider Role Specialty Phone number Guanakito Reno MD [facility] [phone] Cal Mitchell is a 76 year old year old male patient being evaluated today for a Telemanagementvisit. Patient is currently on the following anticoagulant(s) Warfarin. Labs PT INR (no units) Date Value 01/24/2022 2.1 biotel 10/26/2021 2.1 (Biotel) 03/04/2021 2.4 INR Home CoaguChek (no units) Date Value 03/09/2022 2.6 02/10/2022 3.4 01/13/2022 4.0 Hemoglobin (g/dL) Date Value 01/18/2022 12.1 10/06/2020 12.3 Hematocrit (%) Date Value 01/18/2022 39.0 10/06/2020 39.0 Platelet Count (k/uL) Date Value 01/18/2022 188 10/06/2020 189 Creatinine (mg/dL) Date Value 01/18/2022 1.83 12/21/2021 1.91 10/06/2020 1.60 07/18/2019 1.46 03/18/2019 1.51 Bilirubin, Total (mg/dL) Date Value 01/18/2022 0.5 10/06/2020 0.4 ALT (U/L) Date Value 01/18/2022 19 10/06/2020 16 AST (U/L) Date Value 01/18/2022 20 10/06/2020 17 CrCl cannot be calculated (Unknown ideal weight.). 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 Plan: Called and spoke to patient/caregiver Advised patient to continue current weekly dose Next home INR check scheduled on 03/23/2022 Rutihe Cuevas RPh Clinical Pharmacist, Pharmacy Anticoagulation Clinic [facility] Pager: [phone] . documented in this encounterGerman Hospital05-05-2022 Miscellaneous Notes* Telephone Encounter - Jazmyn Garcia RPh - 02/17/2022 1:17 PM EDT Patient due to test INR today. Will continue to monitor for results. Jazmyn Garcia RPh documented in this encounterGerman Hospital04-29-2022 Miscellaneous Notes* Telephone Encounter - Denisse Hutchinson RPh - 02/11/2022 8:21 AM EDT [facility] Anticoagulation Episode Summary Anticoagulation Care Providers Provider Role Specialty Phone number Guanakito Reno MD [facility] [phone] Cal Mitchell is a 76 year old year old male patient being evaluated today for a Telemanagementvisit. Patient is currently on the following anticoagulant(s) Warfarin. Labs PT INR (no units) Date Value 01/24/2022 2.1 biotel 10/26/2021 2.1 (Biotel) 03/04/2021 2.4 INR Home CoaguChek (no units) Date Value 02/10/2022 3.4 01/13/2022 4.0 12/29/2021 2.4 Hemoglobin (g/dL) Date Value 01/18/2022 12.1 10/06/2020 12.3 Hematocrit (%) Date Value 01/18/2022 39.0 10/06/2020 39.0 Platelet Count (k/uL) Date Value 01/18/2022 188 10/06/2020 189 Creatinine (mg/dL) Date Value 01/18/2022 1.83 12/21/2021 1.91 10/06/2020 1.60 07/18/2019 1.46 03/18/2019 1.51 Bilirubin, Total (mg/dL) Date Value 01/18/2022 0.5 10/06/2020 0.4 ALT (U/L) Date Value 01/18/2022 19 10/06/2020 16 AST (U/L) Date Value 01/18/2022 20 10/06/2020 17 CrCl cannot be calculated (Unknown ideal weight.). 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: [facility] (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 Paroxysmal atrial fibrillation (hcc) Anticoagulation Episode Summary Current INR goal: 2.0-3.0 Assessment: INR result of is SUPRAtherapeutic due to: unknown cause - did not speak to patient Plan: Sent [email or web address] message Advised patient to decrease dose for 2 days only then resume weekly regimen Next home INR check scheduled on 02/17/2022 Denisse Hutchinson RPh Clinical Pharmacist, Pharmacy Anticoagulation Clinic [facility] Pager: [phone] . * Telephone Encounter - Twin Cole RPh - 02/08/2022 4:00 PM EDT Patient due to test INR today. Will continue to monitor for results. Twin Cole RPh documented in this encounterGerman Hospital04-12-2022 Miscellaneous Notes* Telephone Encounter - Twin Cole RPh - 01/25/2022 9:15 AM EDT [facility] Anticoagulation Episode Summary Anticoagulation Care Providers Provider Role Specialty Phone number Guanakito Reno MD [facility] [phone] Cal Mitchell is a 76 year old year old male patient being evaluated today for a Telemanagementvisit. Patient is currently on the following anticoagulant(s) Warfarin. Labs PT INR (no units) Date Value 01/24/2022 2.1 biotel 10/26/2021 2.1 (Biotel) 03/04/2021 2.4 INR Home CoaguChek (no units) Date Value 01/13/2022 4.0 12/29/2021 2.4 12/09/2021 2.3 Hemoglobin (g/dL) Date Value 01/18/2022 12.1 10/06/2020 12.3 Hematocrit (%) Date Value 01/18/2022 39.0 10/06/2020 39.0 Platelet Count (k/uL) Date Value 01/18/2022 188 10/06/2020 189 Creatinine (mg/dL) Date Value 01/18/2022 1.83 12/21/2021 1.91 10/06/2020 1.60 07/18/2019 1.46 03/18/2019 1.51 Bilirubin, Total (mg/dL) Date Value 01/18/2022 0.5 10/06/2020 0.4 ALT (U/L) Date Value 01/18/2022 19 10/06/2020 16 AST (U/L) Date Value 01/18/2022 20 10/06/2020 17 CrCl cannot be calculated (Unknown ideal weight.). 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: Anticoagulation Episode Summary Current INR goal: 2.0-3.0 Assessment: INR result of 2.1 biotel is therapeutic Plan: Left voice message Advised patient to continue current weekly dose Next home INR check scheduled on 02/08/2022 Twin Cole RPh Clinical Pharmacist, Pharmacy Anticoagulation Clinic [facility] Pager: [phone] . documented in this encounterCleveland [phone] History of Present illness Narrative* Guanakito Reno MD - 01/19/2022 3:44 PM EDT Patient presents with: Follow Up HPI: Patient presents today for office visit for follow up. Follow up from last ov. Reviewed labs in detail. bp is stable today. No chest pain or shortness of breath. No edema. Discussed that his memory is still a significant issue. Discussed not driving. Needs handicapped jacek as well. Reviewed his renal function. With him on the borderline of Stage IV kidney disease, discussed reducing his diuretic portion of his bp med and holding metformin, especially since his renal function isgood. See Corrina's note from recent visit. Pt presents today for follow-up. He had a virtual appt over a year ago. He was last seen in the office in 2019. He presents today with his daughter, with whom he lives. HTN: Patient is compliant with meds Yes Monitors bp at home: No. Denies side effects: Yes. Chest pain: No. Dyspnea: No. Edema: No. Palpitations: No. Syncope: No. Headache: No. Dizziness: No. Dementia: Had previously been following with [facility]. Last visit 08/2020. Doesn't have anything further scheduled. Doesn't really want to go to [place], but appears last visit was distance. Does not drive. Lives w/ daughter. Stays up late at night and sleep during the day. A. Fib: Chronic anticoagulation. Denies any hematochezia/melena. Daughter does home checks. Follows w/ pharmacy. occ fall with no significant injury. Had been following with [place] [facility], but unsure when he was last seen there. Diabetes. Does not check home blood sugars. Reports compliance w/ medication. Carotid artery stenosis. Follows w/ vascular. Last visit 10/20/20. Recommended follow-up with cardiology and then Dr. Devries in [place]. He did have echo done. Unsure if he followed up with [facility]. Per note, they wanted to establish with [facility] cardiology. BPH Stable. Up X 2 overnight. Component Latest Ref Rng & Units 01/18/2022 WBC 3.70 - 11.00 k/uL 7.20 RBC 4.20 - 6.00 m/uL 3.98 (L) Hemoglobin 13.0 - 17.0 g/dL 12.1 (L) Hematocrit 39.0 - 51.0 % 39.0 MCV 80.0 - 100.0 fL 98.0 MCH 26.0 - 34.0 pg 30.4 MCHC 30.5 - 36.0 g/dL 31.0 RDW-CV 11.5 - 15.0 % 15.9 (H) Platelet Count 150 - 400 k/uL 188 MPV 9.0 - 12.7 fL 10.4 Neut% % 60.4 Abs Neut (ANC) 1.45 - 7.50 k/uL 4.35 Lymph% % 22.9 Abs Lymph 1.00 - 4.00 k/uL 1.65 Knott% % 7.4 Abs Knott <0.87 k/uL 0.53 Eosin% % 8.2 Abs Eosin <0.46 k/uL 0.59 (H) Baso% % 0.7 Abs Baso <0.11 k/uL 0.05 Immature Gran % % 0.4 IMMATURE GRANS (ABS) <0.10 k/uL 0.03 NRBC /100 WBC 0.4 Absolute nRBC <0.01 k/uL 0.03 (H) DTYPE Auto Protein, Total 6.3 - 8.0 g/dL 7.1 Albumin 3.9 - 4.9 g/dL 4.2 Calcium 8.5 - 10.2 mg/dL 9.2 Bilirubin, Total 0.2 - 1.3 mg/dL 0.5 Alkaline Phosphatase 38 - 113 U/L 104 AST 14 - 40 U/L 20 ALT 10 - 54 U/L 19 Glucose 74 - 99 mg/dL 117 (H) BUN 9 - 24 mg/dL 19 Creatinine 0.73 - 1.22 mg/dL 1.83 (H) Sodium 136 - 144 mmol/L 140 Potassium 3.7 - 5.1 mmol/L 4.1 Chloride 97 - 105 mmol/L 101 CO2 22 - 30 mmol/L 25 Anion Gap 9 - 18 mmol/L 14 eGFR >=60 mL/min/1.73m 37 (L) Color Yellow Yellow Clarity Clear Clear Glucose, Urine Negative Negative Bilirubin, Urine Negative Negative Ketones, Urine Negative Negative Specific [place], Ur 1.005 - 1.030 1.016 Hemoglobin/Blood,Ur Negative Negative pH, Urine 5.0 - 8.0 5.0 Protein, Urine Negative 1+ (A) Urobilinogen Negative Negative Nitrites Negative Negative Leukest Negative Negative WBC, Urine 0-5 /HPF 0-5 /HPF RBC, Urine 0-3 /HPF 0-3 /HPF Epithelial Cells /HPF Few Iron 41 - 186 ug/dL 86 TIBC 232 - 386 ug/dL 332 Transferrin Saturation 15 - 57 % 26 Creatinine, Ur Random (UCRR) 20.0 - 300.0 mg/dL 140.9 Albumin, Urine Random mg/L 47.4 Albumin/Creat Ratio <30 mg/g 34 (H) Hemoglobin A1C 4.3 - 5.6 % 5.7 (H) Estimated Average Glucose mg/dL 117 Vitamin B12 232-1,245 pg/mL 310 Folate >4.7 ng/mL 13.2 Ferritin 30.3 - 565.7 ng/mL 85.8 MEDICATIONS: Current Outpatient Medications Medication Sig clopidogrel (PLAVIX) 75 mg tablet Take 1 tablet by mouth once daily. glimepiride (AMARYL) 2 mg tablet Take 1 tablet by mouth daily with breakfast. metFORMIN (GLUCOPHAGE) 500 mg tablet Take 1 tablet by mouth twice daily with meals. escitalopram oxalate (LEXAPRO) 10 mg tablet Take 1 tablet by mouth once daily. metoprolol succinate ER (TOPROL XL) 50 mg 24 hr tablet Take 1 tablet by mouth once daily. memantine (NAMENDA) 10 mg tablet Take 1 tablet by mouth once daily. atorvastatin (LIPITOR) 80 mg tablet Take 1 tablet by mouth daily at bedtime. For cholesterol. pioglitazone (ACTOS) 30 mg tablet Take 1 tablet by mouth once daily. finasteride (PROSCAR) 5 mg tablet Take 1 tablet by mouth once daily. warfarin (COUMADIN) 5 mg tablet 7.5 mg on Monday, 5 mg all other days or as directed lisinopril-hydrochlorothiazide (PRINZIDE, ZESTORETIC) 20-25 mg per tablet Take 1 tablet by mouth once daily. nitroglycerin sublingual (NITROQUICK) 0.4 mg SL tablet Dissolve 1 tablet under the tongue as needed. for chest pain,every 5 min x3 acetaminophen (TYLENOL EXTRA STRENGTH) 500 mg tablet Take 500 mg by mouth every 8 hours as needed. blood sugar diagnostic (Set.fm ULTRA TEST) test strip Test blood sugar(s) one times daily. Dx: 250.00. Insulin: No Lancets (ONE TOUCH DELICA) Misc lancets Test blood sugar(s) one time daily. Dx: 250.00. Insulin: No Current Facility-Administered Medications Medication Dose Route Frequency perflutren lipid microspheres 1.3 mL in NaCl (PF) 0.9% 10 mL injection (DEFINITY) INTRAVENOUS DIRECTED PRN sodium chloride 0.9 % (flush) 10 mL (BD POSIFLUSH) 10 mL INTRAVENOUS DIRECTED PRN ALLERGIES: ALLERGIES No Known Allergies PAST MEDICAL HISTORY Diagnosis Date Actinic keratosis 10/20 BPH (benign prostatic hyperplasia) Chronic airway obstruction, not elsewhere classified 10/20 Diabetes (HCC) Diverticulosis of colon (without mention of hemorrhage) Ectatic thoracic aorta (HCC) 06/07/2018 06/07/18 Chest CTA: There is atherosclerotic calcification of the thoracic aorta with mild fusiform ectasia of the descending component measuring 3.2 x 3.1 cm Impacted cerumen 10/20 Obesity, unspecified 11/19 Other and unspecified hyperlipidemia 10/19 Other symptoms involving cardiovascular system 10/20 Peripheral vascular disease, unspecified (HCC) 10/20 R carotid Unspecified essential hypertension 04/18 PAST SURGICAL HISTORY Procedure Laterality Date ARTL CATHJ/CANNULJ MNTR/TRANSFUSION SPX PRQ 04-17-14 COLONOSCOPY FLX DX W/COLLJ SPEC WHEN PFRMD 40 years ago Colonoscopy COLONOSCOPY FLX DX W/COLLJ SPEC WHEN PFRMD 03/02/11 DSTRJ LESION PENIS SIMPLE CHEMICAL 10/20 PAST SURGICAL HISTORY OF Skin tag removals - bilateral axillary REMOVAL IMPACTED CERUMEN INSTRUMENTATION UNILAT 10/20 TEAEC W/PATCH GRF CAROTID VERTB SUBCLAV NECK INC 04-17-14 RIGHT FAMILY HISTORY Problem Relation Age of Onset Heart Mother of CHF Stroke Maternal Grandfather Social History Tobacco Use Smoking status: Former Smoker Packs/day: 2.00 Years: 10.00 Pack years: 20.00 Types: Cigarettes Quit date: 12/05/1985 Years since quittin.1 Smokeless tobacco: Never Used Substance Use Topics Alcohol use: No Comment: none now; social in past Drug use: No Reviewed current medications, allergies, past medical history, surgical history, family history andsocial history today. REVIEW OF SYSTEMS All other reviewed and negative other than HPI. HEALTH MAINTENANCE: Reviewed health maintenance issues today VITALS: BP 124/68 Pulse 60 Wt 121.1 kg (267 lb) BMI 39.43 kg/m Last 4 Encounter Wt Readings: Date: Wt: 01/19/2022 121.1 kg (267 lb) 12/13/2021 114.3 kg (252 lb) 04/22/2021 119.6 kg (263 lb 9.6 oz) 10/20/2020 116.9 kg (257 lb 12.8 oz) PHYSICAL EXAMINATION: General appearance: Well appearing, alert, in no acute distress, well-hydrated, well nourished. Skin: Skin color, texture, turgor normal, no suspicious rashes or lesions Head: Normocephalic, no masses, lesions, tenderness or abnormalitie Lungs: Lungs clear to auscultation. No wheezing, rhonchi, rales Heart: RRR without murmur, gallop, or rubs. No ectopy Abdomen: Normal abdominal exam, Abdomen soft, non-tender. Bowel sounds normal. No masses, organomegaly Extremities: No deformities, edema, skin discoloration, clubbing or cyanosis. Good capillary refill. Musculoskeletal: No joint swelling, deformity, or tenderness Peripheral pulses: Normal Neuro: Negative. ASSESSMENT/PLAN: 1. Essential hypertension - ICD9: 401.9, ICD10: I10 (primary diagnosis) - change lisinopril hctz. Check bp and bmp in one month. Call if any issues. 2. Essential hypertension with goal blood pressure less than 140/90 - ICD9: 401.9, ICD10: I10 - BASIC METABOLIC PNL - LISINOPRIL 20 MG-HYDROCHLOROTHIAZIDE 12.5 MG TABLET 3. Peripheral arterial disease (HCC) - ICD9: 443.9, ICD10: I73.9 - stable. 4. Nonrheumatic aortic valve stenosis - ICD9: 424.1, ICD10: I35.0 - per cardiology. Sees them soon 5. Hypertensive kidney disease with stage 3 chronic kidney disease, unspecified whether stage 3a or3b CKD (HCC) - ICD9: 403.90, 585.3, ICD10: I12.9, N18.30 6. Stage 3 chronic kidney disease, unspecified whether stage 3a or 3b CKD (HCC) - ICD9: 585.3, ICD10: N18.30 - as above. 7. Dementia, vascular, mixed, with behavioral disturbance (HCC) - ICD9: 290.41, ICD10: F01.51 - as above. 8. Type 2 diabetes mellitus with stage 3 chronic kidney disease, without long- term current use of insulin, unspecified whether stage 3a or 3b CKD (HCC) - ICD9: 250.40, 585.3, ICD10: E11.22, N18.30 - follow sugars on less meds. Guanakito Reno RTO in three months and prn. documented in this encounterGerman Hospital03-31-2022 Miscellaneous Notes* Telephone Encounter - Jazmyn Garcia RPh - 01/13/2022 2:33 PM EDT Patient due to test INR today. Will continue to monitor for results. Jazmyn Garcia RPh documented in this encounterGerman Hospital11-11-2020 History of Past illness Narrative* Problem Noted Date Diagnosed Date Resolved Date Dementia, vascular, mixed, w ith behavioral disturbance 08/26/2020 08/14/2023 Inflamed seborrheic keratosis 03/14/2019 08/14/2023 Neoplasm of uncertain behavior of skin 03/14/2019 08/14/2023 Cutaneous skin tags 03/29/2011 05/24/20 18 SK (seborrheic keratosis) 01/26/2011 AK (actinic keratosis) 01/26/201101/28 Skin tags 01/26/2011 03/29/2011 Pain in joint, shoulder region 12/07/2009 01/29/2020 Pain in limb 02/15/2008 04/22/2009 OTHER ABNORMAL GLUCOSE 10/12/200510/02 Dysmetabolic syndrome X 06/24/200511/16 Other symptoms involving car diovascular system 07/20/2016 Actinic keratosis 10/12/2005 Impacted cerumen 10/12/2005 COPD (chronic obstructive pulmonary disease) 01/29/2020 documented as of this encounter (statuses as of 08/15/2023) [facility] of Past illness Narrative* Problem Noted Date Diagnosed Date Resolved Date Dementia, vascular, mixed, w ith behavioral disturbance 08/26/2020 08/14/2023 Inflamed seborrheic keratosis 03/14/2019 08/14/2023 Neoplasm of uncertain behavior of skin 03/14/2019 08/14/2023 Cutaneous skin tags 03/29/2011 05/24/20 18 SK (seborrheic keratosis) 01/26/2011 AK (actinic keratosis) 01/26/201101/28 Skin tags 01/26/2011 03/29/2011 Pain in joint, shoulder region 12/07/2009 01/29/2020 Pain in limb 02/15/2008 04/22/2009 OTHER ABNORMAL GLUCOSE 10/12/200510/02 Dysmetabolic syndrome X 06/24/200511/16 Other symptoms involving car diovascular system 07/20/2016 Actinic keratosis 10/12/2005 Impacted cerumen 10/12/2005 COPD (chronic obstructive pulmonary disease) 01/29/2020 documented as of this encounter (statuses as of 08/15/2023) [facility] of Past illness Narrative* Problem Noted Date Diagnosed Date Resolved Date Dementia, vascular, mixed, w ith behavioral disturbance 08/26/2020 08/14/2023 Inflamed seborrheic keratosis 03/14/2019 08/14/2023 Neoplasm of uncertain behavior of skin 03/14/2019 08/14/2023 Cutaneous skin tags 03/29/2011 05/24/20 18 SK (seborrheic keratosis) 01/26/2011 AK (actinic keratosis) 01/26/201101/28 Skin tags 01/26/2011 03/29/2011 Pain in joint, shoulder region 12/07/2009 01/29/2020 Pain in limb 02/15/2008 04/22/2009 OTHER ABNORMAL GLUCOSE 10/12/200510/02 Dysmetabolic syndrome X 06/24/200511/16 Other symptoms involving car diovascular system 07/20/2016 Actinic keratosis 10/12/2005 Impacted cerumen 10/12/2005 COPD (chronic obstructive pulmonary disease) 01/29/2020 documented as of this encounter (statuses as of 08/16/2023) [facility] Narrative* Problem Noted Date Diagnosed Date Resolved Date Dementia, vascular, mixed, w ith behavioral disturbance 08/26/2020 08/14/2023 Inflamed seborrheic keratosis 03/14/2019 08/14/2023 Neoplasm of uncertain behavior of skin 03/14/2019 08/14/2023 Cutaneous skin tags 03/29/2011 05/24/20 18 SK (seborrheic keratosis) 01/26/2011 AK (actinic keratosis) 01/26/201101/28 Skin tags 01/26/2011 03/29/2011 Pain in joint, shoulder region 12/07/2009 01/29/2020 Pain in limb 02/15/2008 04/22/2009 OTHER ABNORMAL GLUCOSE 10/12/200510/02 Dysmetabolic syndrome X 06/24/200511/16 Other symptoms involving car diovascular system 07/20/2016 Actinic keratosis 10/12/2005 Impacted cerumen 10/12/2005 COPD (chronic obstructive pulmonary disease) 01/29/2020 documented as of this encounter (statuses as of 08/23/2023) [facility] Narrative* Problem Noted Date Diagnosed Date Resolved Date Dementia, vascular, mixed, w ith behavioral disturbance 08/26/2020 08/14/2023 Inflamed seborrheic keratosis 03/14/2019 08/14/2023 Neoplasm of uncertain behavior of skin 03/14/2019 08/14/2023 Cutaneous skin tags 03/29/2011 05/24/20 18 SK (seborrheic keratosis) 01/26/2011 AK (actinic keratosis) 01/26/201101/28 Skin tags 01/26/2011 03/29/2011 Pain in joint, shoulder region 12/07/2009 01/29/2020 Pain in limb 02/15/2008 04/22/2009 OTHER ABNORMAL GLUCOSE 10/12/200510/02 Dysmetabolic syndrome X 06/24/200511/16 Other symptoms involving car diovascular system 07/20/2016 Actinic keratosis 10/12/2005 Impacted cerumen 10/12/2005 COPD (chronic obstructive pulmonary disease) 01/29/2020 documented as of this encounter (statuses as of 09/06/2023) [facility] Narrative* Problem Noted Date Diagnosed Date Resolved Date Dementia, vascular, mixed, w ith behavioral disturbance 08/26/2020 08/14/2023 Inflamed seborrheic keratosis 03/14/2019 08/14/2023 Neoplasm of uncertain behavior of skin 03/14/2019 08/14/2023 Cutaneous skin tags 03/29/2011 05/24/20 18 SK (seborrheic keratosis) 01/26/2011 AK (actinic keratosis) 01/26/201101/28 Skin tags 01/26/2011 03/29/2011 Pain in joint, shoulder region 12/07/2009 01/29/2020 Pain in limb 02/15/2008 04/22/2009 OTHER ABNORMAL GLUCOSE 10/12/200510/02 Dysmetabolic syndrome X 06/24/200511/16 Other symptoms involving car diovascular system 07/20/2016 Actinic keratosis 10/12/2005 Impacted cerumen 10/12/2005 COPD (chronic obstructive pulmonary disease) 01/29/2020 documented as of this encounter (statuses as of 09/20/2023) [facility] Narrative* Problem Noted Date Diagnosed Date Resolved Date Dementia, vascular, mixed, w ith behavioral disturbance 08/26/2020 08/14/2023 Inflamed seborrheic keratosis 03/14/2019 08/14/2023 Neoplasm of uncertain behavior of skin 03/14/2019 08/14/2023 Cutaneous skin tags 03/29/2011 05/24/20 18 SK (seborrheic keratosis) 01/26/2011 AK (actinic keratosis) 01/26/201101/28 Skin tags 01/26/2011 03/29/2011 Pain in joint, shoulder region 12/07/2009 01/29/2020 Pain in limb 02/15/2008 04/22/2009 OTHER ABNORMAL GLUCOSE 10/12/200510/02 Dysmetabolic syndrome X 06/24/200511/16 Other symptoms involving car diovascular system 07/20/2016 Actinic keratosis 10/12/2005 Impacted cerumen 10/12/2005 COPD (chronic obstructive pulmonary disease) 01/29/2020 documented as of this encounter (statuses as of 12/04/2023) [facility] Narrative* Problem Noted Date Diagnosed Date Resolved Date Dementia, vascular, mixed, w ith behavioral disturbance 08/26/2020 08/14/2023 Inflamed seborrheic keratosis 03/14/2019 08/14/2023 Neoplasm of uncertain behavior of skin 03/14/2019 08/14/2023 Cutaneous skin tags 03/29/2011 05/24/20 18 SK (seborrheic keratosis) 01/26/2011 AK (actinic keratosis) 01/26/201101/28 Skin tags 01/26/2011 03/29/2011 Pain in joint, shoulder region 12/07/2009 01/29/2020 Pain in limb 02/15/2008 04/22/2009 OTHER ABNORMAL GLUCOSE 10/12/200510/02 Dysmetabolic syndrome X 06/24/200511/16 Other symptoms involving car diovascular system 07/20/2016 Actinic keratosis 10/12/2005 Impacted cerumen 10/12/2005 COPD (chronic obstructive pulmonary disease) 01/29/2020 documented as of this encounter (statuses as of 12/21/2023) [facility] History of Past illness Narrative* Problem Noted Date Diagnosed Date Resolved Date Dementia, vascular, mixed, w ith behavioral disturbance 08/26/2020 08/14/2023 Inflamed seborrheic keratosis 03/14/2019 08/14/2023 Neoplasm of uncertain behavior of skin 03/14/2019 08/14/2023 Cutaneous skin tags 03/29/2011 05/24/20 18 SK (seborrheic keratosis) 01/26/2011 AK (actinic keratosis) 01/26/201101/28 Skin tags 01/26/2011 03/29/2011 Pain in joint, shoulder region 12/07/2009 01/29/2020 Pain in limb 02/15/2008 04/22/2009 OTHER ABNORMAL GLUCOSE 10/12/200510/02 Dysmetabolic syndrome X 06/24/200511/16 Other symptoms involving car diovascular system 07/20/2016 Actinic keratosis 10/12/2005 Impacted cerumen 10/12/2005 COPD (chronic obstructive pulmonary disease) 01/29/2020 documented as of this encounter (statuses as of 12/21/2023) [facility] History of Past illness Narrative* Problem Noted Date Diagnosed Date Resolved Date Dementia, vascular, mixed, w ith behavioral disturbance 08/26/2020 08/14/2023 Inflamed seborrheic keratosis 03/14/2019 08/14/2023 Neoplasm of uncertain behavior of skin 03/14/2019 08/14/2023 Cutaneous skin tags 03/29/2011 05/24/20 18 SK (seborrheic keratosis) 01/26/2011 AK (actinic keratosis) 01/26/201101/28 Skin tags 01/26/2011 03/29/2011 Pain in joint, shoulder region 12/07/2009 01/29/2020 Pain in limb 02/15/2008 04/22/2009 OTHER ABNORMAL GLUCOSE 10/12/200510/02 Dysmetabolic syndrome X 06/24/200511/16 Other symptoms involving car diovascular system 07/20/2016 Actinic keratosis 10/12/2005 Impacted cerumen 10/12/2005 COPD (chronic obstructive pulmonary disease) 01/29/2020 documented as of this encounter (statuses as of 12/22/2023) [facility] History of Past illness Narrative* Problem Noted Date Diagnosed Date Resolved Date Dementia, vascular, mixed, w ith behavioral disturbance 08/26/2020 08/14/2023 Inflamed seborrheic keratosis 03/14/2019 08/14/2023 Neoplasm of uncertain behavior of skin 03/14/2019 08/14/2023 Cutaneous skin tags 03/29/2011 05/24/20 18 SK (seborrheic keratosis) 01/26/2011 AK (actinic keratosis) 01/26/201101/28 Skin tags 01/26/2011 03/29/2011 Pain in joint, shoulder region 12/07/2009 01/29/2020 Pain in limb 02/15/2008 04/22/2009 OTHER ABNORMAL GLUCOSE 10/12/200510/02 Dysmetabolic syndrome X 06/24/200511/16 Other symptoms involving car diovascular system 07/20/2016 Actinic keratosis 10/12/2005 Impacted cerumen 10/12/2005 COPD (chronic obstructive pulmonary disease) 01/29/2020 documented as of this encounter (statuses as of 01/15/2024) [facility] History of Past illness Narrative* Problem Noted Date Diagnosed Date Resolved Date Dementia, vascular, mixed, w ith behavioral disturbance 08/26/2020 08/14/2023 Inflamed seborrheic keratosis 03/14/2019 08/14/2023 Neoplasm of uncertain behavior of skin 03/14/2019 08/14/2023 Cutaneous skin tags 03/29/2011 05/24/20 18 SK (seborrheic keratosis) 01/26/2011 AK (actinic keratosis) 01/26/201101/28 Skin tags 01/26/2011 03/29/2011 Pain in joint, shoulder region 12/07/2009 01/29/2020 Pain in limb 02/15/2008 04/22/2009 OTHER ABNORMAL GLUCOSE 10/12/200510/02 Dysmetabolic syndrome X 06/24/200511/16 Other symptoms involving car diovascular system 07/20/2016 Actinic keratosis 10/12/2005 Impacted cerumen 10/12/2005 COPD (chronic obstructive pulmonary disease) 01/29/2020 documented as of this encounter (statuses as of 01/18/2024) [facility] History of Past illness Narrative* Problem Noted Date Resolved Date Cutaneous skin tags 03/29/2011 05/24/2018 SK (seborrheic keratosis) 01/26/20112019 AK (actinic keratosis) 01/26/2011 0 Skin tags 01/26/2011 03/29/2011 Pain in joint, shoulder region 12/07/2009 0 01/29/2020 Pain in limb 02/15/2008 04/22/2009 OTHER ABNORMAL GLUCOSE 10/12/2005 6 Dysmetabolic syndrome X 06/24/2005 11/27/19 10 Other symptoms involving cardiovascular system 07/20/2016 Actinic keratosis 10/12/2005 Impacted cerumen 10/12/2005 COPD (chronic obstructive pulmonary disease) 01/29/2020 documented as of this encounter (statuses as of 01/19/2022) [facility] History of Past illness Narrative* Problem Noted Date Resolved Date Cutaneous skin tags 03/29/2011 05/24/2018 SK (seborrheic keratosis) 01/26/20112019 AK (actinic keratosis) 01/26/2011 0 Skin tags 01/26/2011 03/29/2011 Pain in joint, shoulder region 12/07/2009 0 01/29/2020 Pain in limb 02/15/2008 04/22/2009 OTHER ABNORMAL GLUCOSE 10/12/2005 6 Dysmetabolic syndrome X 06/24/2005 11/27/19 10 Other symptoms involving cardiovascular system 07/20/2016 Actinic keratosis 10/12/2005 Impacted cerumen 10/12/2005 COPD (chronic obstructive pulmonary disease) 01/29/2020 documented as of this encounter (statuses as of 01/25/2022) [facility] History of Past illness Narrative* Problem Noted Date Resolved Date Cutaneous skin tags 03/29/2011 05/24/2018 SK (seborrheic keratosis) 01/26/20112019 AK (actinic keratosis) 01/26/2011 0 Skin tags 01/26/2011 03/29/2011 Pain in joint, shoulder region 12/07/2009 0 01/29/2020 Pain in limb 02/15/2008 04/22/2009 OTHER ABNORMAL GLUCOSE 10/12/2005 6 Dysmetabolic syndrome X 06/24/2005 11/27/19 10 Other symptoms involving cardiovascular system 07/20/2016 Actinic keratosis 10/12/2005 Impacted cerumen 10/12/2005 COPD (chronic obstructive pulmonary disease) 01/29/2020 documented as of this encounter (statuses as of 02/11/2022) [facility] History of Past illness Narrative* Problem Noted Date Resolved Date Cutaneous skin tags 03/29/2011 05/24/2018 SK (seborrheic keratosis) 01/26/20112019 AK (actinic keratosis) 01/26/2011 0 Skin tags 01/26/2011 03/29/2011 Pain in joint, shoulder region 12/07/2009 0 01/29/2020 Pain in limb 02/15/2008 04/22/2009 OTHER ABNORMAL GLUCOSE 10/12/2005 6 Dysmetabolic syndrome X 06/24/2005 11/27/19 10 Other symptoms involving cardiovascular system 07/20/2016 Actinic keratosis 10/12/2005 Impacted cerumen 10/12/2005 COPD (chronic obstructive pulmonary disease) 01/29/2020 documented as of this encounter (statuses as of 03/09/2022) [facility] History of Past illness Narrative* Problem Noted Date Resolved Date Cutaneous skin tags 03/29/2011 05/24/2018 SK (seborrheic keratosis) 01/26/20112019 AK (actinic keratosis) 01/26/2011 0 Skin tags 01/26/2011 03/29/2011 Pain in joint, shoulder region 12/07/2009 0 01/29/2020 Pain in limb 02/15/2008 04/22/2009 OTHER ABNORMAL GLUCOSE 10/12/2005 6 Dysmetabolic syndrome X 06/24/2005 11/27/19 10 Other symptoms involving cardiovascular system 07/20/2016 Actinic keratosis 10/12/2005 Impacted cerumen 10/12/2005 COPD (chronic obstructive pulmonary disease) 01/29/2020 documented as of this encounter (statuses as of 03/17/2022) [facility] History of Past illness Narrative* Problem Noted Date Resolved Date Cutaneous skin tags 03/29/2011 05/24/2018 SK (seborrheic keratosis) 01/26/20112019 AK (actinic keratosis) 01/26/2011 0 Skin tags 01/26/2011 03/29/2011 Pain in joint, shoulder region 12/07/2009 0 01/29/2020 Pain in limb 02/15/2008 04/22/2009 OTHER ABNORMAL GLUCOSE 10/12/2005 6 Dysmetabolic syndrome X 06/24/2005 11/27/19 10 Other symptoms involving cardiovascular system 07/20/2016 Actinic keratosis 10/12/2005 Impacted cerumen 10/12/2005 COPD (chronic obstructive pulmonary disease) 01/29/2020 documented as of this encounter (statuses as of 03/18/2022) [facility] History of Past illness Narrative* Problem Noted Date Resolved Date Cutaneous skin tags 03/29/2011 05/24/2018 SK (seborrheic keratosis) 01/26/20112019 AK (actinic keratosis) 01/26/2011 0 Skin tags 01/26/2011 03/29/2011 Pain in joint, shoulder region 12/07/2009 0 01/29/2020 Pain in limb 02/15/2008 04/22/2009 OTHER ABNORMAL GLUCOSE 10/12/2005 6 Dysmetabolic syndrome X 06/24/2005 11/27/19 10 Other symptoms involving cardiovascular system 07/20/2016 Actinic keratosis 10/12/2005 Impacted cerumen 10/12/2005 COPD (chronic obstructive pulmonary disease) 01/29/2020 documented as of this encounter (statuses as of 04/04/2022) [facility] History of Past illness Narrative* Problem Noted Date Resolved Date Cutaneous skin tags 03/29/2011 05/24/2018 SK (seborrheic keratosis) 01/26/20112019 AK (actinic keratosis) 01/26/2011 0 Skin tags 01/26/2011 03/29/2011 Pain in joint, shoulder region 12/07/2009 0 01/29/2020 Pain in limb 02/15/2008 04/22/2009 OTHER ABNORMAL GLUCOSE 10/12/2005 6 Dysmetabolic syndrome X 06/24/2005 11/27/19 10 Other symptoms involving cardiovascular system 07/20/2016 Actinic keratosis 10/12/2005 Impacted cerumen 10/12/2005 COPD (chronic obstructive pulmonary disease) 01/29/2020 documented as of this encounter (statuses as of 04/25/2022) [facility] History of Past illness Narrative* Problem Noted Date Resolved Date Cutaneous skin tags 03/29/2011 05/24/2018 SK (seborrheic keratosis) 01/26/20112019 AK (actinic keratosis) 01/26/2011 0 Skin tags 01/26/2011 03/29/2011 Pain in joint, shoulder region 12/07/2009 0 01/29/2020 Pain in limb 02/15/2008 04/22/2009 OTHER ABNORMAL GLUCOSE 10/12/2005 6 Dysmetabolic syndrome X 06/24/2005 11/27/19 10 Other symptoms involving cardiovascular system 07/20/2016 Actinic keratosis 10/12/2005 Impacted cerumen 10/12/2005 COPD (chronic obstructive pulmonary disease) 01/29/2020 documented as of this encounter (statuses as of 05/13/2022) [facility] History of Past illness Narrative* Problem Noted Date Resolved Date Cutaneous skin tags 03/29/2011 05/24/2018 SK (seborrheic keratosis) 01/26/20112019 AK (actinic keratosis) 01/26/2011 0 Skin tags 01/26/2011 03/29/2011 Pain in joint, shoulder region 12/07/2009 0 01/29/2020 Pain in limb 02/15/2008 04/22/2009 OTHER ABNORMAL GLUCOSE 10/12/2005 6 Dysmetabolic syndrome X 06/24/2005 11/27/19 10 Other symptoms involving cardiovascular system 07/20/2016 Actinic keratosis 10/12/2005 Impacted cerumen 10/12/2005 COPD (chronic obstructive pulmonary disease) 01/29/2020 documented as of this encounter (statuses as of 05/16/2022) [facility] History of Past illness Narrative* Problem Noted Date Resolved Date Cutaneous skin tags 03/29/2011 05/24/2018 SK (seborrheic keratosis) 01/26/20112019 AK (actinic keratosis) 01/26/2011 0 Skin tags 01/26/2011 03/29/2011 Pain in joint, shoulder region 12/07/2009 0 01/29/2020 Pain in limb 02/15/2008 04/22/2009 OTHER ABNORMAL GLUCOSE 10/12/2005 6 Dysmetabolic syndrome X 06/24/2005 11/27/19 10 Other symptoms involving cardiovascular system 07/20/2016 Actinic keratosis 10/12/2005 Impacted cerumen 10/12/2005 COPD (chronic obstructive pulmonary disease) 01/29/2020 documented as of this encounter (statuses as of 05/19/2022) [facility] History of Past illness Narrative* Problem Noted Date Resolved Date Cutaneous skin tags 03/29/2011 05/24/2018 SK (seborrheic keratosis) 01/26/20112019 AK (actinic keratosis) 01/26/2011 0 Skin tags 01/26/2011 03/29/2011 Pain in joint, shoulder region 12/07/2009 0 01/29/2020 Pain in limb 02/15/2008 04/22/2009 OTHER ABNORMAL GLUCOSE 10/12/2005 6 Dysmetabolic syndrome X 06/24/2005 11/27/19 10 Other symptoms involving cardiovascular system 07/20/2016 Actinic keratosis 10/12/2005 Impacted cerumen 10/12/2005 COPD (chronic obstructive pulmonary disease) 01/29/2020 documented as of this encounter (statuses as of 06/14/2022) [facility] History of Past illness Narrative* Problem Noted Date Resolved Date Cutaneous skin tags 03/29/2011 05/24/2018 SK (seborrheic keratosis) 01/26/20112019 AK (actinic keratosis) 01/26/2011 0 Skin tags 01/26/2011 03/29/2011 Pain in joint, shoulder region 12/07/2009 0 01/29/2020 Pain in limb 02/15/2008 04/22/2009 OTHER ABNORMAL GLUCOSE 10/12/2005200 6 Dysmetabolic syndrome X 06/24/2005 11/27/19 10 Other symptoms involving cardiovascular system 07/20/2016 Actinic keratosis 10/12/2005 Impacted cerumen 10/12/2005 COPD (chronic obstructive pulmonary disease) 01/29/2020 documented as of this encounter (statuses as of 07/05/2022) [facility] History of Past illness Narrative* Problem Noted Date Resolved Date Cutaneous skin tags 03/29/2011 05/24/2018 SK (seborrheic keratosis) 01/26/20112019 AK (actinic keratosis) 01/26/2011 0 Skin tags 01/26/2011 03/29/2011 Pain in joint, shoulder region 12/07/2009 0 01/29/2020 Pain in limb 02/15/2008 04/22/2009 OTHER ABNORMAL GLUCOSE 10/12/2005 6 Dysmetabolic syndrome X 06/24/2005 11/27/19 10 Other symptoms involving cardiovascular system 07/20/2016 Actinic keratosis 10/12/2005 Impacted cerumen 10/12/2005 COPD (chronic obstructive pulmonary disease) 01/29/2020 documented as of this encounter (statuses as of 07/22/2022) [facility] History of Past illness Narrative* Problem Noted Date Resolved Date Cutaneous skin tags 03/29/2011 05/24/2018 SK (seborrheic keratosis) 01/26/20112019 AK (actinic keratosis) 01/26/2011 0 Skin tags 01/26/2011 03/29/2011 Pain in joint, shoulder region 12/07/2009 0 01/29/2020 Pain in limb 02/15/2008 04/22/2009 OTHER ABNORMAL GLUCOSE 10/12/2005 6 Dysmetabolic syndrome X 06/24/2005 11/27/19 10 Other symptoms involving cardiovascular system 07/20/2016 Actinic keratosis 10/12/2005 Impacted cerumen 10/12/2005 COPD (chronic obstructive pulmonary disease) 01/29/2020 documented as of this encounter (statuses as of 08/01/2022) [facility] History of Past illness Narrative* Problem Noted Date Resolved Date Cutaneous skin tags 03/29/2011 05/24/2018 SK (seborrheic keratosis) 01/26/20112019 AK (actinic keratosis) 01/26/2011 0 Skin tags 01/26/2011 03/29/2011 Pain in joint, shoulder region 12/07/2009 0 01/29/2020 Pain in limb 02/15/2008 04/22/2009 OTHER ABNORMAL GLUCOSE 10/12/2005 6 Dysmetabolic syndrome X 06/24/2005 11/27/19 10 Other symptoms involving cardiovascular system 07/20/2016 Actinic keratosis 10/12/2005 Impacted cerumen 10/12/2005 COPD (chronic obstructive pulmonary disease) 01/29/2020 documented as of this encounter (statuses as of 08/15/2022) [facility] History of Past illness Narrative* Problem Noted Date Resolved Date Cutaneous skin tags 03/29/2011 05/24/2018 SK (seborrheic keratosis) 01/26/20112019 AK (actinic keratosis) 01/26/2011 0 Skin tags 01/26/2011 03/29/2011 Pain in joint, shoulder region 12/07/2009 0 01/29/2020 Pain in limb 02/15/2008 04/22/2009 OTHER ABNORMAL GLUCOSE 10/12/2005 6 Dysmetabolic syndrome X 06/24/2005 11/27/19 10 Other symptoms involving cardiovascular system 07/20/2016 Actinic keratosis 10/12/2005 Impacted cerumen 10/12/2005 COPD (chronic obstructive pulmonary disease) 01/29/2020 documented as of this encounter (statuses as of 09/07/2022) [facility] History of Past illness Narrative* Problem Noted Date Resolved Date Cutaneous skin tags 03/29/2011 05/24/2018 SK (seborrheic keratosis) 01/26/20112019 AK (actinic keratosis) 01/26/2011 0 Skin tags 01/26/2011 03/29/2011 Pain in joint, shoulder region 12/07/2009 0 01/29/2020 Pain in limb 02/15/2008 04/22/2009 OTHER ABNORMAL GLUCOSE 10/12/2005 6 Dysmetabolic syndrome X 06/24/2005 11/27/19 10 Other symptoms involving cardiovascular system 07/20/2016 Actinic keratosis 10/12/2005 Impacted cerumen 10/12/2005 COPD (chronic obstructive pulmonary disease) 01/29/2020 documented as of this encounter (statuses as of 09/15/2022) [facility] History of Past illness Narrative* Problem Noted Date Resolved Date Cutaneous skin tags 03/29/2011 05/24/2018 SK (seborrheic keratosis) 01/26/20112019 AK (actinic keratosis) 01/26/2011 0 Skin tags 01/26/2011 03/29/2011 Pain in joint, shoulder region 12/07/2009 0 01/29/2020 Pain in limb 02/15/2008 04/22/2009 OTHER ABNORMAL GLUCOSE 10/12/2005 6 Dysmetabolic syndrome X 06/24/2005 11/27/19 10 Other symptoms involving cardiovascular system 07/20/2016 Actinic keratosis 10/12/2005 Impacted cerumen 10/12/2005 COPD (chronic obstructive pulmonary disease) 01/29/2020 documented as of this encounter (statuses as of 09/23/2022) [facility] History of Past illness Narrative* Problem Noted Date Resolved Date Cutaneous skin tags 03/29/2011 05/24/2018 SK (seborrheic keratosis) 01/26/20112019 AK (actinic keratosis) 01/26/2011 0 Skin tags 01/26/2011 03/29/2011 Pain in joint, shoulder region 12/07/2009 0 01/29/2020 Pain in limb 02/15/2008 04/22/2009 OTHER ABNORMAL GLUCOSE 10/12/2005 6 Dysmetabolic syndrome X 06/24/2005 11/27/19 10 Other symptoms involving cardiovascular system 07/20/2016 Actinic keratosis 10/12/2005 Impacted cerumen 10/12/2005 COPD (chronic obstructive pulmonary disease) 01/29/2020 documented as of this encounter (statuses as of 09/29/2022) [facility] History of Past illness Narrative* Problem Noted Date Resolved Date Cutaneous skin tags 03/29/2011 05/24/2018 SK (seborrheic keratosis) 01/26/20112019 AK (actinic keratosis) 01/26/2011 0 Skin tags 01/26/2011 03/29/2011 Pain in joint, shoulder region 12/07/2009 0 01/29/2020 Pain in limb 02/15/2008 04/22/2009 OTHER ABNORMAL GLUCOSE 10/12/2005 6 Dysmetabolic syndrome X 06/24/2005 11/27/19 10 Other symptoms involving cardiovascular system 07/20/2016 Actinic keratosis 10/12/2005 Impacted cerumen 10/12/2005 COPD (chronic obstructive pulmonary disease) 01/29/2020 documented as of this encounter (statuses as of 10/16/2022) [facility] History of Past illness Narrative* Problem Noted Date Resolved Date Cutaneous skin tags 03/29/2011 05/24/2018 SK (seborrheic keratosis) 01/26/20112019 AK (actinic keratosis) 01/26/2011 0 Skin tags 01/26/2011 03/29/2011 Pain in joint, shoulder region 12/07/2009 0 01/29/2020 Pain in limb 02/15/2008 04/22/2009 OTHER ABNORMAL GLUCOSE 10/12/2005 6 Dysmetabolic syndrome X 06/24/2005 11/27/19 10 Other symptoms involving cardiovascular system 07/20/2016 Actinic keratosis 10/12/2005 Impacted cerumen 10/12/2005 COPD (chronic obstructive pulmonary disease) 01/29/2020 documented as of this encounter (statuses as of 10/25/2022) [facility] History of Past illness Narrative* Problem Noted Date Resolved Date Cutaneous skin tags 03/29/2011 05/24/2018 SK (seborrheic keratosis) 01/26/20112019 AK (actinic keratosis) 01/26/2011 0 Skin tags 01/26/2011 03/29/2011 Pain in joint, shoulder region 12/07/2009 0 01/29/2020 Pain in limb 02/15/2008 04/22/2009 OTHER ABNORMAL GLUCOSE 10/12/2005 6 Dysmetabolic syndrome X 06/24/2005 11/27/19 10 Other symptoms involving cardiovascular system 07/20/2016 Actinic keratosis 10/12/2005 Impacted cerumen 10/12/2005 COPD (chronic obstructive pulmonary disease) 01/29/2020 documented as of this encounter (statuses as of 11/04/2022) [facility] History of Past illness Narrative* Problem Noted Date Resolved Date Cutaneous skin tags 03/29/2011 05/24/2018 SK (seborrheic keratosis) 01/26/20112019 AK (actinic keratosis) 01/26/2011 0 Skin tags 01/26/2011 03/29/2011 Pain in joint, shoulder region 12/07/2009 0 01/29/2020 Pain in limb 02/15/2008 04/22/2009 OTHER ABNORMAL GLUCOSE 10/12/2005 6 Dysmetabolic syndrome X 06/24/2005 11/27/19 10 Other symptoms involving cardiovascular system 07/20/2016 Actinic keratosis 10/12/2005 Impacted cerumen 10/12/2005 COPD (chronic obstructive pulmonary disease) 01/29/2020 documented as of this encounter (statuses as of 11/08/2022) [facility] History of Past illness Narrative* Problem Noted Date Resolved Date Cutaneous skin tags 03/29/2011 05/24/2018 SK (seborrheic keratosis) 01/26/20112019 AK (actinic keratosis) 01/26/2011 0 Skin tags 01/26/2011 03/29/2011 Pain in joint, shoulder region 12/07/2009 0 01/29/2020 Pain in limb 02/15/2008 04/22/2009 OTHER ABNORMAL GLUCOSE 10/12/2005 6 Dysmetabolic syndrome X 06/24/2005 11/27/19 10 Other symptoms involving cardiovascular system 07/20/2016 Actinic keratosis 10/12/2005 Impacted cerumen 10/12/2005 COPD (chronic obstructive pulmonary disease) 01/29/2020 documented as of this encounter (statuses as of 11/18/2022) [facility] History of Past illness Narrative* Problem Noted Date Resolved Date Cutaneous skin tags 03/29/2011 05/24/2018 SK (seborrheic keratosis) 01/26/20112019 AK (actinic keratosis) 01/26/2011 0 Skin tags 01/26/2011 03/29/2011 Pain in joint, shoulder region 12/07/2009 0 01/29/2020 Pain in limb 02/15/2008 04/22/2009 OTHER ABNORMAL GLUCOSE 10/12/2005 6 Dysmetabolic syndrome X 06/24/2005 11/27/19 10 Other symptoms involving cardiovascular system 07/20/2016 Actinic keratosis 10/12/2005 Impacted cerumen 10/12/2005 COPD (chronic obstructive pulmonary disease) 01/29/2020 documented as of this encounter (statuses as of 11/28/2022) [facility] History of Past illness Narrative* Problem Noted Date Resolved Date Cutaneous skin tags 03/29/2011 05/24/2018 SK (seborrheic keratosis) 01/26/20112019 AK (actinic keratosis) 01/26/2011 0 Skin tags 01/26/2011 03/29/2011 Pain in joint, shoulder region 12/07/2009 0 01/29/2020 Pain in limb 02/15/2008 04/22/2009 OTHER ABNORMAL GLUCOSE 10/12/2005 6 Dysmetabolic syndrome X 06/24/2005 11/27/19 10 Other symptoms involving cardiovascular system 07/20/2016 Actinic keratosis 10/12/2005 Impacted cerumen 10/12/2005 COPD (chronic obstructive pulmonary disease) 01/29/2020 documented as of this encounter (statuses as of 12/19/2022) [facility] History of Past illness Narrative* Problem Noted Date Resolved Date Cutaneous skin tags 03/29/2011 05/24/2018 SK (seborrheic keratosis) 01/26/20112019 AK (actinic keratosis) 01/26/2011 0 Skin tags 01/26/2011 03/29/2011 Pain in joint, shoulder region 12/07/2009 0 01/29/2020 Pain in limb 02/15/2008 04/22/2009 OTHER ABNORMAL GLUCOSE 10/12/2005 6 Dysmetabolic syndrome X 06/24/2005 11/27/19 10 Other symptoms involving cardiovascular system 07/20/2016 Actinic keratosis 10/12/2005 Impacted cerumen 10/12/2005 COPD (chronic obstructive pulmonary disease) 01/29/2020 documented as of this encounter (statuses as of 01/12/2023) [facility] History of Past illness Narrative* Problem Noted Date Resolved Date Cutaneous skin tags 03/29/2011 05/24/2018 SK (seborrheic keratosis) 01/26/20112019 AK (actinic keratosis) 01/26/2011 0 Skin tags 01/26/2011 03/29/2011 Pain in joint, shoulder region 12/07/2009 0 01/29/2020 Pain in limb 02/15/2008 04/22/2009 OTHER ABNORMAL GLUCOSE 10/12/2005 6 Dysmetabolic syndrome X 06/24/2005 11/27/19 10 Other symptoms involving cardiovascular system 07/20/2016 Actinic keratosis 10/12/2005 Impacted cerumen 10/12/2005 COPD (chronic obstructive pulmonary disease) 01/29/2020 documented as of this encounter (statuses as of 01/16/2023) [facility] History of Past illness Narrative* Problem Noted Date Resolved Date Cutaneous skin tags 03/29/2011 05/24/2018 SK (seborrheic keratosis) 01/26/20112019 AK (actinic keratosis) 01/26/2011 0 Skin tags 01/26/2011 03/29/2011 Pain in joint, shoulder region 12/07/2009 0 01/29/2020 Pain in limb 02/15/2008 04/22/2009 OTHER ABNORMAL GLUCOSE 10/12/2005 6 Dysmetabolic syndrome X 06/24/2005 11/27/19 10 Other symptoms involving cardiovascular system 07/20/2016 Actinic keratosis 10/12/2005 Impacted cerumen 10/12/2005 COPD (chronic obstructive pulmonary disease) 01/29/2020 documented as of this encounter (statuses as of 02/07/2023) [facility] History of Past illness Narrative* Problem Noted Date Resolved Date Cutaneous skin tags 03/29/2011 05/24/2018 SK (seborrheic keratosis) 01/26/20112019 AK (actinic keratosis) 01/26/2011 0 Skin tags 01/26/2011 03/29/2011 Pain in joint, shoulder region 12/07/2009 0 01/29/2020 Pain in limb 02/15/2008 04/22/2009 OTHER ABNORMAL GLUCOSE 10/12/2005 6 Dysmetabolic syndrome X 06/24/2005 11/27/19 10 Other symptoms involving cardiovascular system 07/20/2016 Actinic keratosis 10/12/2005 Impacted cerumen 10/12/2005 COPD (chronic obstructive pulmonary disease) 01/29/2020 documented as of this encounter (statuses as of 02/14/2023) [facility] History of Past illness Narrative* Problem Noted Date Resolved Date Cutaneous skin tags 03/29/2011 05/24/2018 SK (seborrheic keratosis) 01/26/20112019 AK (actinic keratosis) 01/26/2011 0 Skin tags 01/26/2011 03/29/2011 Pain in joint, shoulder region 12/07/2009 0 01/29/2020 Pain in limb 02/15/2008 04/22/2009 OTHER ABNORMAL GLUCOSE 10/12/2005 6 Dysmetabolic syndrome X 06/24/2005 11/27/19 10 Other symptoms involving cardiovascular system 07/20/2016 Actinic keratosis 10/12/2005 Impacted cerumen 10/12/2005 COPD (chronic obstructive pulmonary disease) 01/29/2020 documented as of this encounter (statuses as of 03/29/2023) [facility] History of Past illness Narrative* Problem Noted Date Resolved Date Cutaneous skin tags 03/29/2011 05/24/2018 SK (seborrheic keratosis) 01/26/20112019 AK (actinic keratosis) 01/26/2011 0 Skin tags 01/26/2011 03/29/2011 Pain in joint, shoulder region 12/07/2009 0 01/29/2020 Pain in limb 02/15/2008 04/22/2009 OTHER ABNORMAL GLUCOSE 10/12/2005 6 Dysmetabolic syndrome X 06/24/2005 11/27/19 10 Other symptoms involving cardiovascular system 07/20/2016 Actinic keratosis 10/12/2005 Impacted cerumen 10/12/2005 COPD (chronic obstructive pulmonary disease) 01/29/2020 documented as of this encounter (statuses as of 04/20/2023) [facility] History of Past illness Narrative* Problem Noted Date Diagnosed Date Resolved Date Cutaneous skin tags 03/29/2011 05/24/20 18 SK (seborrheic keratosis) 01/26/2011 AK (actinic keratosis) 01/26/201101/28 Skin tags 01/26/2011 03/29/2011 Pain in joint, shoulder region 12/07/2009 01/29/2020 Pain in limb 02/15/2008 04/22/2009 OTHER ABNORMAL GLUCOSE 10/12/200510/02 Dysmetabolic syndrome X 06/24/200511/16 Other symptoms involving car diovascular system 07/20/2016 Actinic keratosis 10/12/2005 Impacted cerumen 10/12/2005 COPD (chronic obstructive pulmonary disease) 01/29/2020 documented as of this encounter (statuses as of 04/24/2023) [facility] History of Past illness Narrative* Problem Noted Date Diagnosed Date Resolved Date Cutaneous skin tags 03/29/2011 05/24/20 18 SK (seborrheic keratosis) 01/26/2011 AK (actinic keratosis) 01/26/201101/28 Skin tags 01/26/2011 03/29/2011 Pain in joint, shoulder region 12/07/2009 01/29/2020 Pain in limb 02/15/2008 04/22/2009 OTHER ABNORMAL GLUCOSE 10/12/200510/02 Dysmetabolic syndrome X 06/24/200511/16 Other symptoms involving car diovascular system 07/20/2016 Actinic keratosis 10/12/2005 Impacted cerumen 10/12/2005 COPD (chronic obstructive pulmonary disease) 01/29/2020 documented as of this encounter (statuses as of 05/22/2023) [facility] History of Past illness Narrative* Problem Noted Date Diagnosed Date Resolved Date Cutaneous skin tags 03/29/2011 05/24/20 18 SK (seborrheic keratosis) 01/26/2011 AK (actinic keratosis) 01/26/201101/28 Skin tags 01/26/2011 03/29/2011 Pain in joint, shoulder region 12/07/2009 01/29/2020 Pain in limb 02/15/2008 04/22/2009 OTHER ABNORMAL GLUCOSE 10/12/200510/02 Dysmetabolic syndrome X 06/24/200511/16 Other symptoms involving car diovascular system 07/20/2016 Actinic keratosis 10/12/2005 Impacted cerumen 10/12/2005 COPD (chronic obstructive pulmonary disease) 01/29/2020 documented as of this encounter (statuses as of 06/28/2023) [facility] History of Past illness Narrative* Problem Noted Date Diagnosed Date Resolved Date Cutaneous skin tags 03/29/2011 05/24/20 18 SK (seborrheic keratosis) 01/26/2011 AK (actinic keratosis) 01/26/201101/28 Skin tags 01/26/2011 03/29/2011 Pain in joint, shoulder region 12/07/2009 01/29/2020 Pain in limb 02/15/2008 04/22/2009 OTHER ABNORMAL GLUCOSE 10/12/200510/02 Dysmetabolic syndrome X 06/24/200511/16 Other symptoms involving car diovascular system 07/20/2016 Actinic keratosis 10/12/2005 Impacted cerumen 10/12/2005 COPD (chronic obstructive pulmonary disease) 01/29/2020 documented as of this encounter (statuses as of 07/05/2023) [facility] History of Past illness Narrative* Problem Noted Date Diagnosed Date Resolved Date Cutaneous skin tags 03/29/2011 05/24/20 18 SK (seborrheic keratosis) 01/26/2011 AK (actinic keratosis) 01/26/201101/28 Skin tags 01/26/2011 03/29/2011 Pain in joint, shoulder region 12/07/2009 01/29/2020 Pain in limb 02/15/2008 04/22/2009 OTHER ABNORMAL GLUCOSE 10/12/200510/02 Dysmetabolic syndrome X 06/24/200511/16 Other symptoms involving car diovascular system 07/20/2016 Actinic keratosis 10/12/2005 Impacted cerumen 10/12/2005 COPD (chronic obstructive pulmonary disease) 01/29/2020 documented as of this encounter (statuses as of 07/27/2023) [facility] Essential hypertension- Primary Unspecified essential hypertension Essential hypertension with goal blood pressure less than 140/90 Peripheral arterial disease (HCC) Peripheral vascular disease, unspecified Nonrheumatic aortic valve stenosis Aortic valve disorders Hypertensive kidney disease with stage 3 chronic kidney disease, unspecified whether stage 3a or 3b CKD (HCC) Stage 3 chronic kidney disease, unspecified whether stage 3a or 3b CKD (HCC) Dementia, vascular, mixed, 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, without long-term current use of insulin, unspecified whether stage 3a or 3b CKD (HCC) [facility] Diagnosis 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- Primary Long-term (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 Paroxysmal atrial fibrillation (HCC) Atrial fibrillation [facility] Diagnosis 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- Primary Long-term (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 Paroxysmal atrial fibrillation (HCC) Atrial fibrillation [facility] Diagnosis [facility] (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- Primary Long-term (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 Paroxysmal atrial fibrillation (HCC) Atrial fibrillation [facility] Diagnosis 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- Primary Long-term (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 Paroxysmal atrial fibrillation (HCC) Atrial fibrillation [facility] Bilateral carotid artery stenosis- Primary Occlusion and stenosis of carotid artery without mention of cerebral infarction Stenosis of left carotid artery Occlusion and stenosis of carotid artery without mention of cerebral infarction [facility] (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- Primary Long-term (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 Paroxysmal atrial fibrillation (HCC) Atrial fibrillation [facility]* Diagnosis Benign prostatic hyperplasia without lower urinary tract symptoms Mixed dementia (HCC) Essential hypertension with goal blood pressure less than 140/90 Lung nodule Solitary pulmonary nodule Paroxysmal atrial fibrillation (HCC) Atrial fibrillation [facility] Diagnosis Paroxysmal atrial fibrillation (HCC) Atrial fibrillation [facility]* Diagnosis Obesity, Class II, BMI 35-39.9- Primary Obesity, unspecified Paroxysmal atrial fibrillation (HCC) Atrial fibrillation Nonrheumatic aortic valve stenosis Aortic valve disorders Aortic valve disorder Aortic valve disorders [facility]* Diagnosis 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- Primary Long-term (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 Paroxysmal atrial fibrillation (HCC) Atrial fibrillation [facility] Diagnosis Essential hypertension with goal blood pressure less than 140/90 [facility] (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- Primary Long-term (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 Paroxysmal atrial fibrillation (HCC) Atrial fibrillation [facility] Diagnosis Bilateral carotid artery stenosis- Primary Occlusion and stenosis of carotid artery without mention of cerebral infarction [facility] Diagnosis [facility] (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- Primary Long-term (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 Paroxysmal atrial fibrillation (HCC) Atrial fibrillation [facility] Diagnosis Essential hypertension with goal blood pressure less than 140/90 [facility] Diagnosis Essential hypertension with goal blood pressure less than 140/90- Primary Paroxysmal atrial fibrillation (HCC) Atrial fibrillation 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, without long-term current use of insulin, unspecified whether stage 3a or 3b CKD (HCC) Peripheral arterial disease (HCC) Peripheral vascular disease, unspecified Dementia, vascular, mixed, with behavioral disturbance (HCC) Aortic valve disorder Aortic valve disorders Hyperlipidemia, mixed Mixed hyperlipidemia Essential hypertension Unspecified essential hypertension Nonrheumatic aortic valve stenosis Aortic valve disorders Stage 3 chronic kidney disease, unspecified whether stage 3a or 3b CKD (HCC) Need for COVID-19 vaccine [facility] Diagnosis Syncope, unspecified syncope type- Primary Aortic valve disorder Aortic valve disorders [facility] Diagnosis Paroxysmal atrial fibrillation (HCC) Atrial fibrillation Essential hypertension with goal blood pressure less than 140/90 Benign prostatic hyperplasia without lower urinary tract symptoms Mixed dementia (HCC) Lung nodule Solitary pulmonary nodule Type 2 diabetes mellitus with stage 3 chronic kidney disease, without long-term current use of insulin (HCC) [facility] Diagnosis Essential hypertension with goal blood pressure less than 140/90 [facility] Diagnosis [facility] (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- Primary Long-term (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 Paroxysmal atrial fibrillation (HCC) Atrial fibrillation [facility]* Diagnosis Onychomycosis- Primary Dermatophytosis of nail Essential hypertension Unspecified essential hypertension Hyperlipidemia, mixed Mixed hyperlipidemia Ectatic thoracic aorta (HCC) Thoracic aortic ectasia Paroxysmal atrial fibrillation (HCC) Atrial fibrillation Hypertensive kidney disease with stage 3 chronic kidney disease, unspecified whether stage 3a or 3b CKD (HCC) Nonrheumatic aortic valve stenosis Aortic valve disorders Type 2 diabetes mellitus with stage 3 chronic kidney disease, without long-term current use of insulin, unspecified whether stage 3a or 3b CKD (HCC) Stage 3 chronic kidney disease, unspecified whether stage 3a or 3b CKD (HCC) Mixed dementia (HCC) Occlusion and stenosis of unspecified carotid artery Encounter for immunization Need for other specified prophylactic vaccination against single bacterial disease Hypertensive kidney disease with stage 3a chronic kidney disease (HCC) [facility]* Diagnosis Renal insufficiency- Primary Unspecified disorder of kidney and ureter [facility] Diagnosis 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- Primary Long-term (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 Paroxysmal atrial fibrillation (HCC) Atrial fibrillation [facility] Diagnosis 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- Primary Long-term (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 Paroxysmal atrial fibrillation (HCC) Atrial fibrillation [facility]* Diagnosis Abrasion of arm, left, initial encounter- Primary Chronic insomnia Insomnia, unspecified [facility]* Diagnosis Essential hypertension with goal blood pressure less than 140/90 Paroxysmal atrial fibrillation (HCC) Atrial fibrillation [facility] Diagnosis Lung nodule Solitary pulmonary nodule [facility] Diagnosis [facility] (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- Primary Long-term (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 Paroxysmal atrial fibrillation (HCC) Atrial fibrillation [facility]* Diagnosis Syncope, unspecified syncope type- Primary Aortic valve disorder Aortic valve disorders Paroxysmal atrial fibrillation (HCC) Atrial fibrillation Ectatic thoracic aorta (HCC) 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, without long-term current use of insulin (HCC) [facility]* Diagnosis Essential hypertension- Primary Unspecified essential hypertension Hyperlipidemia, mixed Mixed hyperlipidemia Ectatic thoracic aorta (HCC) Thoracic aortic ectasia Hypertensive kidney disease with stage 3 chronic kidney disease, unspecified whether stage 3a or 3b CKD (HCC) Paroxysmal atrial fibrillation (HCC) Atrial fibrillation History of carotid endarterectomy Other postprocedural status Type 2 diabetes mellitus with stage 3 chronic kidney disease, without long-term current use of insulin, unspecified whether stage 3a or 3b CKD (HCC) Mixed dementia (HCC) [facility] (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 Long-term (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 Obesity, Class II, BMI 35-39.9 Obesity, unspecified Renal insufficiency Unspecified disorder of kidney and ureter Anemia, unspecified type [facility]* Diagnosis 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- Primary Long-term (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 Paroxysmal atrial fibrillation (HCC) Atrial fibrillation documented in this encounter [facility] note* Diagnosis CKD (chronic kidney disease) stage 4, 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/min (HCC)- Primary Chronic kidney disease, Stage IV (severe) Anemia, unspecified type [facility]* Diagnosis Essential hypertension- Primary Unspecified essential hypertension Benign prostatic hyperplasia without lower urinary tract symptoms Hypertensive kidney disease with stage 3 chronic kidney disease, unspecified whether stage 3a or 3b CKD (HCC) Aortic valve disorder Aortic valve disorders Occlusion and stenosis of unspecified carotid artery Anemia, unspecified type Chronic renal disease, stage IV (HCC) Chronic kidney disease, Stage IV (severe) documented [facility]* Diagnosis 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- Primary Long-term (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 Paroxysmal atrial fibrillation (HCC) Atrial fibrillation [facility]* Diagnosis Renal insufficiency Unspecified disorder of kidney and ureter [facility] Diagnosis Essential hypertension- Primary Unspecified essential hypertension Hypertensive kidney disease with stage 3 chronic kidney disease, unspecified whether stage 3a or 3b CKD (HCC) Anemia, unspecified type documented in this encounter [facility] note* Diagnosis 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- Primary Long-term (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 Paroxysmal atrial fibrillation (HCC) Atrial fibrillation documented in this encounter [facility] note* Diagnosis Blood pressure check- Primary Screening for hypertension Leg swelling Swelling of limb [facility]* Diagnosis Aortic valve stenosis, etiology of cardiac valve disease unspecified- Primary Hypertensive kidney disease with stage 3b chronic kidney disease (HCC) Paroxysmal atrial fibrillation (HCC) Atrial fibrillation Benign prostatic hyperplasia without lower urinary tract symptoms Anemia, unspecified type [facility]* Diagnosis [facility] (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- Primary Long-term (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 Paroxysmal atrial fibrillation (HCC) Atrial fibrillation [facility]* Diagnosis Screen for colon cancer- Primary Special screening for malignant neoplasms, colon documented [facility] this [facility]* Diagnosis 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- Primary Long-term (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 Paroxysmal atrial fibrillation (HCC) Atrial fibrillation documented in this encounter [facility] note* Diagnosis Severe aortic stenosis [I35.0]- Primary Aortic valve disorders Valvular heart disease Endocarditis, valve unspecified, unspecified cause documented in this encounter [facility] note* Diagnosis Nonrheumatic aortic valve stenosis- Primary Aortic valve disorders Encounter for preprocedural cardiovascular examination Pre-operative cardiovascular examination Dyspnea on exertion Other dyspnea and respiratory abnormality Dementia, unspecified dementia severity, unspecified dementia type, unspecified whether behavioral, psychotic, or mood disturbance or anxiety (HCC) Chronic kidney disease, unspecified CKD stage Anemia in chronic kidney disease, unspecified CKD stage Stenosis of left carotid artery Occlusion and stenosis of carotid artery without mention of cerebral infarction Valvular heart disease Endocarditis, valve unspecified, unspecified cause [facility]* Diagnosis Nonrheumatic aortic valve stenosis Aortic valve disorders Valvular heart disease Endocarditis, valve unspecified, unspecified cause [facility] this [facility]* Diagnosis Essential hypertension- Primary Unspecified essential hypertension Hyperlipidemia, mixed Mixed hyperlipidemia Nonrheumatic aortic valve stenosis Aortic valve disorders Ectatic thoracic aorta (HCC) Thoracic aortic ectasia Paroxysmal atrial fibrillation (HCC) Atrial fibrillation Hypertensive kidney disease with stage 3 chronic kidney disease, unspecified whether stage 3a or 3b CKD (HCC) Type 2 diabetes mellitus with stage 3 chronic kidney disease, without long-term current use of insulin, unspecified whether stage 3a or 3b CKD (HCC) Chronic renal disease, stage IV (HCC) Chronic kidney disease, Stage IV (severe) Mixed dementia (HCC) 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 Long-term (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 Need for vaccination Need for prophylactic vaccination and inoculation against unspecified single disease Valvular heart disease Endocarditis, valve unspecified, unspecified cause [facility] Diagnosis Essential hypertension- Primary Unspecified essential hypertension Valvular heart disease Endocarditis, valve unspecified, unspecified cause [facility]* Diagnosis Paroxysmal atrial fibrillation (HCC)- Primary Atrial fibrillation Aortic valve stenosis, etiology of cardiac valve disease unspecified Valvular heart disease Endocarditis, valve unspecified, unspecified cause documented in this encounter [facility] note* Diagnosis Nonrheumatic aortic valve stenosis- Primary Aortic valve disorders Paroxysmal atrial fibrillation (HCC) Atrial fibrillation Valvular heart disease Endocarditis, valve unspecified, unspecified cause [facility] Diagnosis Nonrheumatic aortic valve stenosis Aortic valve disorders Encounter for preprocedural cardiovascular examination Pre-operative cardiovascular examination [facility]* Diagnosis [facility] (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- Primary Long-term (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 Paroxysmal atrial fibrillation (HCC) Atrial fibrillation [facility] Diagnosis Bilateral carotid artery stenosis- Primary Occlusion and stenosis of carotid artery without mention of cerebral infarction History of carotid endarterectomy Other postprocedural status [facility] Diagnosis 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- Primary Long-term (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 Paroxysmal atrial fibrillation (HCC) Atrial fibrillation documented in this encounter [facility] note* Diagnosis Hyperlipidemia, mixed- Primary Mixed hyperlipidemia Paroxysmal atrial fibrillation (HCC) Atrial fibrillation Benign prostatic hyperplasia without lower urinary tract symptoms Hypertensive kidney disease with stage 3 chronic kidney disease, unspecified whether stage 3a or 3b CKD (HCC) Mixed dementia (HCC) Essential hypertension Unspecified essential hypertension Peripheral arterial disease Peripheral vascular disease, unspecified Aortic valve stenosis, etiology of cardiac valve disease unspecified Ectatic thoracic aorta 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, without long-term current use of insulin, unspecified whether stage 3a or 3b CKD (HCC) Chronic renal disease, stage IV (HCC) Chronic kidney disease, Stage IV (severe) 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 Long-term (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 Obesity, Class II, BMI 35-39.9 Obesity, unspecified Viral conjunctivitis Unspecified diseases of conjunctiva due to viruses Seasonal allergic rhinitis, unspecified trigger Bilateral impacted cerumen Impacted cerumen [facility] Diagnosis 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- Primary Long-term (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 Paroxysmal atrial fibrillation (HCC) Atrial fibrillation [facility] [facility] Diagnosis Paroxysmal atrial fibrillation (HCC) Atrial fibrillation documented in this encounter [facility] for referral (narrative)* Outpatient Procedure (Routine) - Pending Review Specialty Diagnoses / Procedures Referred By Anival aedn Referred To [facility] Diagnoses Bilateral carotid artery stenosis Procedures US CAROTID ARTERIES GRAY VAS LAB DUPLEX SCAN EXTRACRANIAL ART COMPL BI STUDY Alondra Prescott, DO [address] [place] [address] Formerly [facility] [address] [address] Referral ID Status Reason Start Date Expiration Date Visits Requested Visits Authorized [id number] Pending Review Auto-Generat ed Referral 03/18/2022 03/16/2023 1 1 [facility] for referral (narrative)* Outpatient Procedure (Routine) - Authorized Specialty Diagnoses / Procedures Referred By Contac t Referred To Contact [facility] Diagnoses Nonrheumatic aortic valve stenosis Procedures ECHO ECHO TTHRC R-T 2D W/WOM-MODE COMPL SPEC&COLR Pam Velazco MD [address] [place] [address] Formerly [facility] [address] [address] Referral ID Status Reason Start Date Expiration Date Visits Requested Visits Authorized [id number] Authorized Auto-Generat ed Referral 08/22/2022 08/15/2023 1 1 [facility] for referral (narrative)* Outpatient Procedure (Routine) - Pending Review Specialty Diagnoses / Procedures Referred By Contac t Referred To Contact [facility] Diagnoses Bilateral carotid artery stenosis Procedures US CAROTID ARTERIES GRAY VAS LAB DUPLEX SCAN EXTRACRANIAL ART COMPL BI STUDY Alondra Prescott DO [address] [place] [address] Formerly [facility] [address] [address] Referral ID Status Reason Start Date Expiration Date Visits Requested Visits Authorized [id number] Pending Review Auto-Generat ed Referral 10/04/2023 1 1 [facility] for referral (narrative)* Outpatient Procedure (Routine) - Authorized Specialty Diagnoses / Procedures Referred By Contac t Referred To Contact [facility] Diagnoses Syncope, unspecified syncope type Aortic valve disorder Procedures ECHO ECHO TTHRC R-T 2D W/WOM-MODE COMPL SPEC&COLR D Pam Reddy MD [address] [place] [address] Fax: [facility] [address] [place] [address] Referral ID Status Reason Start Date Expiration Date Visits Requested Visits Authorized [id number] Authorized Auto-Generat ed Referral 02/20/2023 02/13/2024 1 1 [facility] for referral (narrative)* Outpatient Procedure (Routine) - Pending Review Specialty Diagnoses / Procedures Referred By Contac t Referred To [facility] Diagnoses Syncope, unspecified syncope type Aortic valve disorder Procedures ECHO ECHO TTHRC R-T 2D W/WOM-MODE COMPL SPEC&COLR Pam Velazco MD [address], [address] [place] [address] Fax: [facility] [address] [place] [address] Referral ID Status Reason Start Date Expiration Date Visits Requested Visits Authorized [id number] Pending Review Auto-Generat ed Referral 04/08/2024 03/25/2025 1 1 * Outpatient Procedure (Routine) - Pending Review Specialty Diagnoses / Procedures Referred By Contac t Referred To [facility] Diagnoses Syncope, unspecified syncope type Aortic valve disorder Paroxysmal atrial fibrillation (HCC) Procedures ECG COMPLETE ECG ROUTINE ECG W/LEAST 12 LDS W/I&R Pam Reddy MD [address], [address] [place] [address] Fax: [facility] [address] [place] [address] Referral ID Status Reason Start Date Expiration Date Visits Requested Visits Authorized [id number] Pending Review Auto-Generat ed Referral 03/21/2024 03/21/2025 1 1 [facility] for referral (narrative)* Diagnostic Procedure Only (Routine) - Authorized Specialty Diagnoses / Procedures Referred By Contac t Referred To Contact [facility] Diagnoses Renal insufficiency Procedures US KIDNEY/BLADDER US RETROPERITONEAL REAL TIME W/IMAGE COMPLETE Guanakito Reno MD [address] [place] [address] [place] [address] Referral ID Status Reason Start Date Expiration Date Visits Requested Visits Authorized [id number] Authorized Auto-Generat ed Referral 03/26/2024 04/25/2025 1 1 * Outpatient Procedure (Routine) - Pending Review Specialty Diagnoses / Procedures Referred By Contac t Referred [facility] Contact [facility] Diagnoses History of carotid endarterectomy Procedures US CAROTID ARTERIES GRAY VAS LAB DUPLEX SCAN EXTRACRANIAL [place] [address] [place] [address] Formerly [facility] [place] [id number] Referral ID Status Reason Start Date Expiration Date Visits Requested Visits Authorized [id number] Pending Review Auto-Generat ed Referral 03/26/2024 03/26/2025 1 1 [facility] for referral (narrative)* Diagnostic Procedure Only (Routine) - Closed Specialty Diagnoses / Procedures Referred By Contac t Referred To Contact [facility] IM[facility] Diagnoses Renal insufficiency Procedures US KIDNEY/BLADDER US RETROPERITONEAL REAL TIME W/IMAGE COMPLETE Guanakito Reno MD [facility] [place] [address] [place] [address] Referral ID Status Reason Start Date Expiration Date V isits Requested Visits Authorized [id number] Closed Auto-Generate d Referral 03/26/2024 04/25/2025 1 [facility] Procedure Only (Routine) - New Request Specialty Diagnoses / Procedures Referred By Anival aden Referred To Contact [facility] Diagnoses Bilateral carotid artery stenosis History of carotid endarterectomy Procedures US CAROTID BILATERAL Laura Iraheta MD [address] [place] [address] [place] [address] Referral ID Status Reason Start Date Expiration Date Visits Requested Visits Authorized [id number] New Request Auto-Generat ed Referral 5 09/05/2025 1 1 [facility] Summary Purpose Family History No Family History Records Found Relationship Condition Age at Onset Recorded Date/T lillian mother Congestive heart failure Unknown grandfather Cerebrovascular accident (CVA) Unknown Advance Directives No Advanced Directives Records Found Advance Directive Response Recorded Date/ Time Advance Directives No March 06 4:19pm Reason for Referral Specialty Diagnoses / Procedures Referred By Anival aden Referred To Contact Diagnoses Mixed dementia ([place]) [place] [address] [place] [address] Referral ID Status Reason Start Date Expiration Date Visits Re quested Visits Authorized [id number] Closed 1 1 Referral ID Status Reason Start Date Expiration Date Visits Re quested Visits Authorized [id number] Closed 1 1 Specialty Diagnoses / Procedures Referred By Anival aden Referred To Contact Podiatry Diagnoses Onychomycosis Procedures CONSULT TO PODIATRY OFFICE/OUTPATIENT [facility] 60-74 MINUTES Guanakito Reno MD [address] [place] [address] Referral ID Status Reason Start Date Expiration Date Visits Requested Visits Authorized [id number] Pending Review PCP Requested Referral 3 08/13/2024 1 1 Specialty Diagnoses / Procedures Referred By Anival aden Referred To Contact Nephrology Diagnoses CKD (chronic kidney disease) stage 4, 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/min (HCC) Anemia, unspecified type Procedures CONSULT TO NEPHROLOGY OFFICE/OUTPATIENT [facility] MDM 60 MINUTES Guanakito Reno MD [address] [place] [address] Referral ID Status Reason Start Date Expiration Date Visits Requested Visits Authorized [id number] Authorized PCP Requested Referral 04/05/2024 04/05/2025 1 1 Specialty Diagnoses / Procedures Referred By Contac t Referred To Contact Vascular Surgery Diagnoses Stenosis of left carotid artery Procedures CONSULT TO VASCULAR SURGERY OFFICE/OUTPATIENT [facility] 60 MINUTES Josselyn Mayer, [employer]PITCH WORKER [address] [place] [address] Laura Iraheta MD [address] [place] [address] Referral ID Status Reason Start Date Expiration Date Visits Requested Visits Authorized [id number] Authorized PCP Requested Referral 07/10/2024 07/10/2025 1 1 Specialty Diagnoses / Procedures Referred By Contac t Referred To Contact Nephrology Diagnoses Chronic kidney disease, unspecified CKD stage Anemia in chronic kidney disease, unspecified CKD stage Procedures CONSULT TO NEPHROLOGY Josselyn Mayer, [employer]PITCH WORKER [address] [place] [address] Eladio Remy MD [address] [place] [address] Referral ID Status Reason Start Date Expiration Date Visits Requested Visits Authorized [id number] Ref Not Required PCP Requested Referral 07/10/2024 07/10/2025 1 1 Specialty Diagnoses / Procedures Referred By Contac t Referred To Contact Gerontology Diagnoses Dementia, unspecified dementia severity, unspecified dementia type, unspecified whether behavioral, psychotic, or mood disturbance or anxiety (HCC) Procedures CONSULT TO GERIATRICS OFFICE/OUTPATIENT [facility] 60 MINUTES Josselyn Mayer, [employer].PITCH WORKER [address] [place] [address] Referral ID Status Reason Start Date Expiration Date Visits Requested Visits Authorized [id number] Authorized PCP Requested Referral 07/10/2024 07/10/2025 1 1 Specialty Diagnoses / Procedures Referred By Contac t Referred To Contact CT IMAGING Diagnoses Nonrheumatic aortic valve stenosis Encounter for preprocedural cardiovascular examination Procedures CTA CHEST (GATED) WO/W IVCON CT ANGIOGRAPHY CHEST W/CONTRAST/NONCONTRAST Josselyn Mayer, [employer].PITCH WORKER [address] [place] [address] Fax: [place] [address] Referral ID Status Reason Start Date Expiration Date Visits Requested Visits Authorized [id number] Authorized Auto-Generat ed Referral 07/10/2024 08/09/2025 1 1 Specialty Diagnoses / Procedures Referred By Contac t Referred To Contact CT IMAGING Diagnoses Nonrheumatic aortic valve stenosis Encounter for preprocedural cardiovascular examination Procedures CTA ABD/PEL W IVCON CT ANGIO ABD&PLVIS CNTRST MTRL W/WO CNTRST IMGES Josselyn Mayer, [employer].PITCH WORKER [address] [place] [address] Fax: [place] [address] Referral ID Status Reason Start Date Expiration Date Visits Requested Visits Authorized [id number] Authorized Auto-Generat ed Referral 07/10/2024 08/09/2025 1 1 Referral ID Status Reason Start Date Expiration Date V isits Requested Visits Authorized [id number] Closed Auto-Generate d Referral 07/10/2024 08/09/2025 1 1 Referral ID Status Reason Start Date Expiration Date V isits Requested Visits Authorized [id number] Closed Auto-Generate d Referral 07/10/2024 08/09/2025 1 1 Chief Complaint and Reason for Visit Chief Complaint Admit Date RIGHT HUMERUS March 07, 2025 12:49 pm FRACTURE UPPER RIGHT HUMERUS. RX HERE Ju ne 2024 12:30pm RIGHT HUMERUS May 02, 2025 10:1 1am Room 1 May 02, 2025 10:2 9am Reason for Visit Admit Date Closed fracture of right proximal humeru s March 07, 2025 12:49pm Additional Source Comments (unrecognized sect ion and content) No Status Records FoundNo Status Records FoundNo Status Records FoundNo Status Records Found INFORMATION SOURCE (unrecogn ized section and content) DATE CREATED AUTHOR 04/06/2018 [facility] DATE CREATED AUTHOR AUTHOR'S ORGANIZ ATION 03/12/2025 [facility] DATE CREATED AUTHOR AUTHOR'S ORGANIZ ATION 05/06/2025 [facility] DATE CREATED AUTHOR AUTHOR'S ORGANIZ ATION 05/07/2025 [facility] Source Comments (unrecognize d section and content) In the event this informatio n is protected by the Federal Confidentiality of Alcohol and Drug Abuse Patient Records regulations: The Federal rules restrict any use of the information to criminally investigate or prosecute any alcohol or drug abuse patient.[facility] the event this information is protected by the Federal Confidentiality of Alcohol and Drug Abuse Patient Records regulations: The Federal rules restrict any use of the information to criminally investigate or prosecute any alcohol or drug abuse patient.[facility] the event this information is protected by the Federal Confidentiality of Alcohol and Drug Abuse Patient Records regulations: The Federal rules restrict any use of the information to criminally investigate or prosecute any alcohol or drug abuse patient.[facility] the event this information is protected by the Federal Confidentiality of Alcohol and Drug Abuse Patient Records regulations: The Federal rules restrict any use of the information to criminally investigate or prosecute any alcohol or drug abuse patient.[facility] the event this information is protected by the Federal Confidentiality of Alcohol and Drug Abuse Patient Records regulations: The Federal rules restrict any use of the information to criminally investigate or prosecute any alcohol or drug abuse patient.[facility] the event this information is protected by the Federal Confidentiality of Alcohol and Drug Abuse Patient Records regulations: The Federal rules restrict any use of the information to criminally investigate or prosecute any alcohol or drug abuse patient.[facility] the event this information is protected by the Federal Confidentiality of Alcohol and Drug Abuse Patient Records regulations: The Federal rules restrict any use of the information to criminally investigate or prosecute any alcohol or drug abuse patient.[facility] the event this information is protected by the Federal Confidentiality of Alcohol and Drug Abuse Patient Records regulations: The Federal rules restrict any use of the information to criminally investigate or prosecute any alcohol or drug abuse patient.[facility] the event this information is protected by the Federal Confidentiality of Alcohol and Drug Abuse Patient Records regulations: The Federal rules restrict any use of the information to criminally investigate or prosecute any alcohol or drug abuse patient.[facility] the event this information is protected by the Federal Confidentiality of Alcohol and Drug Abuse Patient Records regulations: The Federal rules restrict any use of the information to criminally investigate or prosecute any alcohol or drug abuse patient.[facility] the event this information is protected by the Federal Confidentiality of Alcohol and Drug Abuse Patient Records regulations: The Federal rules restrict any use of the information to criminally investigate or prosecute any alcohol or drug abuse patient.[facility] the event this information is protected by the Federal Confidentiality of Alcohol and Drug Abuse Patient Records regulations: The Federal rules restrict any use of the information to criminally investigate or prosecute any alcohol or drug abuse patient.[facility] the event this information is protected by the Federal Confidentiality of Alcohol and Drug Abuse Patient Records regulations: The Federal rules restrict any use of the information to criminally investigate or prosecute any alcohol or drug abuse patient.[facility] the event this information is protected by the Federal Confidentiality of Alcohol and Drug Abuse Patient Records regulations: The Federal rules restrict any use of the information to criminally investigate or prosecute any alcohol or drug abuse patient.[facility] the event this information is protected by the Federal Confidentiality of Alcohol and Drug Abuse Patient Records regulations: The Federal rules restrict any use of the information to criminally investigate or prosecute any alcohol or drug abuse patient.[facility] the event this information is protected by the Federal Confidentiality of Alcohol and Drug Abuse Patient Records regulations: The Federal rules restrict any use of the information to criminally investigate or prosecute any alcohol or drug abuse patient.[facility] the event this information is protected by the Federal Confidentiality of Alcohol and Drug Abuse Patient Records regulations: The Federal rules restrict any use of the information to criminally investigate or prosecute any alcohol or drug abuse patient.[facility] the event this information is protected by the Federal Confidentiality of Alcohol and Drug Abuse Patient Records regulations: The Federal rules restrict any use of the information to criminally investigate or prosecute any alcohol or drug abuse patient.[facility] the event this information is protected by the Federal Confidentiality of Alcohol and Drug Abuse Patient Records regulations: The Federal rules restrict any use of the information to criminally investigate or prosecute any alcohol or drug abuse patient.[facility] the event this information is protected by the Federal Confidentiality of Alcohol and Drug Abuse Patient Records regulations: The Federal rules restrict any use of the information to criminally investigate or prosecute any alcohol or drug abuse patient.[facility] HospitalIn the event this information is protected by the Federal Confidentiality of Alcohol and Drug Abuse Patient Records regulations: The Federal rules restrict any use of the information to criminally investigate or prosecute any alcohol or drug abuse patient.[facility]In the event this information is protected by the Federal Confidentiality of Alcohol and Drug Abuse Patient Records regulations: The Federal rules restrict any use of the information to criminally investigate or prosecute any alcohol or drug abuse patient.[facility] the event this information is protected by the Federal Confidentiality of Alcohol and Drug Abuse Patient Records regulations: The Federal rules restrict any use of the information to criminally investigate or prosecute any alcohol or drug abuse patient.[facility] the event this information is protected by the Federal Confidentiality of Alcohol and Drug Abuse Patient Records regulations: The Federal rules restrict any use of the information to criminally investigate or prosecute any alcohol or drug abuse patient.[facility] the event this information is protected by the Federal Confidentiality of Alcohol and Drug Abuse Patient Records regulations: The Federal rules restrict any use of the information to criminally investigate or prosecute any alcohol or drug abuse patient.[facility] the event this information is protected by the Federal Confidentiality of Alcohol and Drug Abuse Patient Records regulations: The Federal rules restrict any use of the information to criminally investigate or prosecute any alcohol or drug abuse patient.[facility] the event this information is protected by the Federal Confidentiality of Alcohol and Drug Abuse Patient Records regulations: The Federal rules restrict any use of the information to criminally investigate or prosecute any alcohol or drug abuse patient.[facility] the event this information is protected by the Federal Confidentiality of Alcohol and Drug Abuse Patient Records regulations: The Federal rules restrict any use of the information to criminally investigate or prosecute any alcohol or drug abuse patient.[facility] HospitalIn the event this information is protected by the Federal Confidentiality of Alcohol and Drug Abuse Patient Records regulations: The Federal rules restrict any use of the information to criminally investigate or prosecute any alcohol or drug abuse patient.[facility]In the event this information is protected by the Federal Confidentiality of Alcohol and Drug Abuse Patient Records regulations: The Federal rules restrict any use of the information to criminally investigate or prosecute any alcohol or drug abuse patient.[facility]In the event this information is protected by the Federal Confidentiality of Alcohol and Drug Abuse Patient Records regulations: The Federal rules restrict any use of the information to criminally investigate or prosecute any alcohol or drug abuse patient.[facility] the event this information is protected by the Federal Confidentiality of Alcohol and Drug Abuse Patient Records regulations: The Federal rules restrict any use of the information to criminally investigate or prosecute any alcohol or drug abuse patient.[facility]In the event this information is protected by the Federal Confidentiality of Alcohol and Drug Abuse Patient Records regulations: The Federal rules restrict any use of the information to criminally investigate or prosecute any alcohol or drug abuse patient.[facility] HospitalIn the event this information is protected by the Federal Confidentiality of Alcohol and Drug Abuse Patient Records regulations: The Federal rules restrict any use of the information to criminally investigate or prosecute any alcohol or drug abuse patient.[facility]In the event this information is protected by the Federal Confidentiality of Alcohol and Drug Abuse Patient Records regulations: The Federal rules restrict any use of the information to criminally investigate or prosecute any alcohol or drug abuse patient.[facility] HospitalIn the event this information is protected by the Federal Confidentiality of Alcohol and Drug Abuse Patient Records regulations: The Federal rules restrict any use of the information to criminally investigate or prosecute any alcohol or drug abuse patient.[facility] HospitalIn the event this information is protected by the Federal Confidentiality of Alcohol and Drug Abuse Patient Records regulations: The Federal rules restrict any use of the information to criminally investigate or prosecute any alcohol or drug abuse patient.[facility] HospitalIn the event this information is protected by the Federal Confidentiality of Alcohol and Drug Abuse Patient Records regulations: The Federal rules restrict any use of the information to criminally investigate or prosecute any alcohol or drug abuse patient.[facility] HospitalIn the event this information is protected by the Federal Confidentiality of Alcohol and Drug Abuse Patient Records regulations: The Federal rules restrict any use of the information to criminally investigate or prosecute any alcohol or drug abuse patient.[facility] HospitalIn the event this information is protected by the Federal Confidentiality of Alcohol and Drug Abuse Patient Records regulations: The Federal rules restrict any use of the information to criminally investigate or prosecute any alcohol or drug abuse patient.[facility]In the event this information is protected by the Federal Confidentiality of Alcohol and Drug Abuse Patient Records regulations: The Federal rules restrict any use of the information to criminally investigate or prosecute any alcohol or drug abuse patient.[facility]In the event this information is protected by the Federal Confidentiality of Alcohol and Drug Abuse Patient Records regulations: The Federal rules restrict any use of the information to criminally investigate or prosecute any alcohol or drug abuse patient.[facility] HospitalIn the event this information is protected by the Federal Confidentiality of Alcohol and Drug Abuse Patient Records regulations: The Federal rules restrict any use of the information to criminally investigate or prosecute any alcohol or drug abuse patient.[facility] HospitalIn the event this information is protected by the Federal Confidentiality of Alcohol and Drug Abuse Patient Records regulations: The Federal rules restrict any use of the information to criminally investigate or prosecute any alcohol or drug abuse patient.[facility] HospitalIn the event this information is protected by the Federal Confidentiality of Alcohol and Drug Abuse Patient Records regulations: The Federal rules restrict any use of the information to criminally investigate or prosecute any alcohol or drug abuse patient.[facility] HospitalIn the event this information is protected by the Federal Confidentiality of Alcohol and Drug Abuse Patient Records regulations: The Federal rules restrict any use of the information to criminally investigate or prosecute any alcohol or drug abuse patient.[facility] HospitalIn the event this information is protected by the Federal Confidentiality of Alcohol and Drug Abuse Patient Records regulations: The Federal rules restrict any use of the information to criminally investigate or prosecute any alcohol or drug abuse patient.[facility] HospitalIn the event this information is protected by the Federal Confidentiality of Alcohol and Drug Abuse Patient Records regulations: The Federal rules restrict any use of the information to criminally investigate or prosecute any alcohol or drug abuse patient.[facility] HospitalIn the event this information is protected by the Federal Confidentiality of Alcohol and Drug Abuse Patient Records regulations: The Federal rules restrict any use of the information to criminally investigate or prosecute any alcohol or drug abuse patient.[facility] HospitalIn the event this information is protected by the Federal Confidentiality of Alcohol and Drug Abuse Patient Records regulations: The Federal rules restrict any use of the information to criminally investigate or prosecute any alcohol or drug abuse patient.[facility] HospitalIn the event this information is protected by the Federal Confidentiality of Alcohol and Drug Abuse Patient Records regulations: The Federal rules restrict any use of the information to criminally investigate or prosecute any alcohol or drug abuse patient.[facility] HospitalIn the event this information is protected by the Federal Confidentiality of Alcohol and Drug Abuse Patient Records regulations: The Federal rules restrict any use of the information to criminally investigate or prosecute any alcohol or drug abuse patient.[facility] HospitalIn the event this information is protected by the Federal Confidentiality of Alcohol and Drug Abuse Patient Records regulations: The Federal rules restrict any use of the information to criminally investigate or prosecute any alcohol or drug abuse patient.[facility] HospitalIn the event this information is protected by the Federal Confidentiality of Alcohol and Drug Abuse Patient Records regulations: The Federal rules restrict any use of the information to criminally investigate or prosecute any alcohol or drug abuse patient.[facility] the event this information is protected by the Federal Confidentiality of Alcohol and Drug Abuse Patient Records regulations: The Federal rules restrict any use of the information to criminally investigate or prosecute any alcohol or drug abuse patient.[facility] HospitalIn the event this information is protected by the Federal Confidentiality of Alcohol and Drug Abuse Patient Records regulations: The Federal rules restrict any use of the information to criminally investigate or prosecute any alcohol or drug abuse patient.[facility] HospitalIn the event this information is protected by the Federal Confidentiality of Alcohol and Drug Abuse Patient Records regulations: The Federal rules restrict any use of the information to criminally investigate or prosecute any alcohol or drug abuse patient.[facility] HospitalIn the event this information is protected by the Federal Confidentiality of Alcohol and Drug Abuse Patient Records regulations: The Federal rules restrict any use of the information to criminally investigate or prosecute any alcohol or drug abuse patient.[facility] HospitalIn the event this information is protected by the Federal Confidentiality of Alcohol and Drug Abuse Patient Records regulations: The Federal rules restrict any use of the information to criminally investigate or prosecute any alcohol or drug abuse patient.[facility] HospitalIn the event this information is protected by the Federal Confidentiality of Alcohol and Drug Abuse Patient Records regulations: The Federal rules restrict any use of the information to criminally investigate or prosecute any alcohol or drug abuse patient.[facility] HospitalIn the event this information is protected by the Federal Confidentiality of Alcohol and Drug Abuse Patient Records regulations: The Federal rules restrict any use of the information to criminally investigate or prosecute any alcohol or drug abuse patient.[facility] HospitalIn the event this information is protected by the Federal Confidentiality of Alcohol and Drug Abuse Patient Records regulations: The Federal rules restrict any use of the information to criminally investigate or prosecute any alcohol or drug abuse patient.[facility] HospitalIn the event this information is protected by the Federal Confidentiality of Alcohol and Drug Abuse Patient Records regulations: The Federal rules restrict any use of the information to criminally investigate or prosecute any alcohol or drug abuse patient.[facility] HospitalIn the event this information is protected by the Federal Confidentiality of Alcohol and Drug Abuse Patient Records regulations: The Federal rules restrict any use of the information to criminally investigate or prosecute any alcohol or drug abuse patient.[facility] HospitalIn the event this information is protected by the Federal Confidentiality of Alcohol and Drug Abuse Patient Records regulations: The Federal rules restrict any use of the information to criminally investigate or prosecute any alcohol or drug abuse patient.[facility] HospitalIn the event this information is protected by the Federal Confidentiality of Alcohol and Drug Abuse Patient Records regulations: The Federal rules restrict any use of the information to criminally investigate or prosecute any alcohol or drug abuse patient.[facility] HospitalIn the event this information is protected by the Federal Confidentiality of Alcohol and Drug Abuse Patient Records regulations: The Federal rules restrict any use of the information to criminally investigate or prosecute any alcohol or drug abuse patient.[facility] HospitalIn the event this information is protected by the Federal Confidentiality of Alcohol and Drug Abuse Patient Records regulations: The Federal rules restrict any use of the information to criminally investigate or prosecute any alcohol or drug abuse patient.[facility] HospitalIn the event this information is protected by the Federal Confidentiality of Alcohol and Drug Abuse Patient Records regulations: The Federal rules restrict any use of the information to criminally investigate or prosecute any alcohol or drug abuse patient.[facility] HospitalIn the event this information is protected by the Federal Confidentiality of Alcohol and Drug Abuse Patient Records regulations: The Federal rules restrict any use of the information to criminally investigate or prosecute any alcohol or drug abuse patient.[facility] HospitalIn the event this information is protected by the Federal Confidentiality of Alcohol and Drug Abuse Patient Records regulations: The Federal rules restrict any use of the information to criminally investigate or prosecute any alcohol or drug abuse patient.[facility] HospitalIn the event this information is protected by the Federal Confidentiality of Alcohol and Drug Abuse Patient Records regulations: The Federal rules restrict any use of the information to criminally investigate or prosecute any alcohol or drug abuse patient.[facility] HospitalIn the event this information is protected by the Federal Confidentiality of Alcohol and Drug Abuse Patient Records regulations: The Federal rules restrict any use of the information to criminally investigate or prosecute any alcohol or drug abuse patient.[facility] HospitalIn the event this information is protected by the Federal Confidentiality of Alcohol and Drug Abuse Patient Records regulations: The Federal rules restrict any use of the information to criminally investigate or prosecute any alcohol or drug abuse patient.[facility] HospitalIn the event this information is protected by the Federal Confidentiality of Alcohol and Drug Abuse Patient Records regulations: The Federal rules restrict any use of the information to criminally investigate or prosecute any alcohol or drug abuse patient.[facility] HospitalIn the event this information is protected by the Federal Confidentiality of Alcohol and Drug Abuse Patient Records regulations: The Federal rules restrict any use of the information to criminally investigate or prosecute any alcohol or drug abuse patient.[facility] HospitalIn the event this information is protected by the Federal Confidentiality of Alcohol and Drug Abuse Patient Records regulations: The Federal rules restrict any use of the information to criminally investigate or prosecute any alcohol or drug abuse patient.[facility] HospitalIn the event this information is protected by the Federal Confidentiality of Alcohol and Drug Abuse Patient Records regulations: The Federal rules restrict any use of the information to criminally investigate or prosecute any alcohol or drug abuse patient.[facility] HospitalIn the event this information is protected by the Federal Confidentiality of Alcohol and Drug Abuse Patient Records regulations: The Federal rules restrict any use of the information to criminally investigate or prosecute any alcohol or drug abuse patient.[facility] HospitalIn the event this information is protected by the Federal Confidentiality of Alcohol and Drug Abuse Patient Records regulations: The Federal rules restrict any use of the information to criminally investigate or prosecute any alcohol or drug abuse patient.[facility] HospitalIn the event this information is protected by the Federal Confidentiality of Alcohol and Drug Abuse Patient Records regulations: The Federal rules restrict any use of the information to criminally investigate or prosecute any alcohol or drug abuse patient.[facility] HospitalIn the event this information is protected by the Federal Confidentiality of Alcohol and Drug Abuse Patient Records regulations: The Federal rules restrict any use of the information to criminally investigate or prosecute any alcohol or drug abuse patient.[facility] HospitalIn the event this information is protected by the Federal Confidentiality of Alcohol and Drug Abuse Patient Records regulations: The Federal rules restrict any use of the information to criminally investigate or prosecute any alcohol or drug abuse patient.[facility] HospitalIn the event this information is protected by the Federal Confidentiality of Alcohol and Drug Abuse Patient Records regulations: The Federal rules restrict any use of the information to criminally investigate or prosecute any alcohol or drug abuse patient.[facility] HospitalIn the event this information is protected by the Federal Confidentiality of Alcohol and Drug Abuse Patient Records regulations: The Federal rules restrict any use of the information to criminally investigate or prosecute any alcohol or drug abuse patient.[facility] HospitalIn the event this information is protected by the Federal Confidentiality of Alcohol and Drug Abuse Patient Records regulations: The Federal rules restrict any use of the information to criminally investigate or prosecute any alcohol or drug abuse patient.[facility] HospitalIn the event this information is protected by the Federal Confidentiality of Alcohol and Drug Abuse Patient Records regulations: The Federal rules restrict any use of the information to criminally investigate or prosecute any alcohol or drug abuse patient.[facility] HospitalIn the event this information is protected by the Federal Confidentiality of Alcohol and Drug Abuse Patient Records regulations: The Federal rules restrict any use of the information to criminally investigate or prosecute any alcohol or drug abuse patient.[facility] HospitalIn the event this information is protected by the Federal Confidentiality of Alcohol and Drug Abuse Patient Records regulations: The Federal rules restrict any use of the information to criminally investigate or prosecute any alcohol or drug abuse patient.[facility] HospitalIn the event this information is protected by the Federal Confidentiality of Alcohol and Drug Abuse Patient Records regulations: The Federal rules restrict any use of the information to criminally investigate or prosecute any alcohol or drug abuse patient.[facility] HospitalIn the event this information is protected by the Federal Confidentiality of Alcohol and Drug Abuse Patient Records regulations: The Federal rules restrict any use of the information to criminally investigate or prosecute any alcohol or drug abuse patient.[facility] HospitalIn the event this information is protected by the Federal Confidentiality of Alcohol and Drug Abuse Patient Records regulations: The Federal rules restrict any use of the information to criminally investigate or prosecute any alcohol or drug abuse patient.[facility] HospitalIn the event this information is protected by the Federal Confidentiality of Alcohol and Drug Abuse Patient Records regulations: The Federal rules restrict any use of the information to criminally investigate or prosecute any alcohol or drug abuse patient.[facility] HospitalIn the event this information is protected by the Federal Confidentiality of Alcohol and Drug Abuse Patient Records regulations: The Federal rules restrict any use of the information to criminally investigate or prosecute any alcohol or drug abuse patient.[facility] HospitalIn the event this information is protected by the Federal Confidentiality of Alcohol and Drug Abuse Patient Records regulations: The Federal rules restrict any use of the information to criminally investigate or prosecute any alcohol or drug abuse patient.[facility] HospitalIn the event this information is protected by the Federal Confidentiality of Alcohol and Drug Abuse Patient Records regulations: The Federal rules restrict any use of the information to criminally investigate or prosecute any alcohol or drug abuse patient.[facility] HospitalIn the event this information is protected by the Federal Confidentiality of Alcohol and Drug Abuse Patient Records regulations: The Federal rules restrict any use of the information to criminally investigate or prosecute any alcohol or drug abuse patient.[facility] HospitalIn the event this information is protected by the Federal Confidentiality of Alcohol and Drug Abuse Patient Records regulations: The Federal rules restrict any use of the information to criminally investigate or prosecute any alcohol or drug abuse patient.[facility] HospitalIn the event this information is protected by the Federal Confidentiality of Alcohol and Drug Abuse Patient Records regulations: The Federal rules restrict any use of the information to criminally investigate or prosecute any alcohol or drug abuse patient.[facility] HospitalIn the event this information is protected by the Federal Confidentiality of Alcohol and Drug Abuse Patient Records regulations: The Federal rules restrict any use of the information to criminally investigate or prosecute any alcohol or drug abuse patient.[facility] HospitalIn the event this information is protected by the Federal Confidentiality of Alcohol and Drug Abuse Patient Records regulations: The Federal rules restrict any use of the information to criminally investigate or prosecute any alcohol or drug abuse patient.[facility] HospitalIn the event this information is protected by the Federal Confidentiality of Alcohol and Drug Abuse Patient Records regulations: The Federal rules restrict any use of the information to criminally investigate or prosecute any alcohol or drug abuse patient.[facility] HospitalIn the event this information is protected by the Federal Confidentiality of Alcohol and Drug Abuse Patient Records regulations: The Federal rules restrict any use of the information to criminally investigate or prosecute any alcohol or drug abuse patient.[facility] HospitalIn the event this information is protected by the Federal Confidentiality of Alcohol and Drug Abuse Patient Records regulations: The Federal rules restrict any use of the information to criminally investigate or prosecute any alcohol or drug abuse patient.[facility] the event this information is protected by the Federal Confidentiality of Alcohol and Drug Abuse Patient Records regulations: The Federal rules restrict any use of the information to criminally investigate or prosecute any alcohol or drug abuse patient.[facility] HospitalIn the event this information is protected by the Federal Confidentiality of Alcohol and Drug Abuse Patient Records regulations: The Federal rules restrict any use of the information to criminally investigate or prosecute any alcohol or drug abuse patient.[facility] HospitalIn the event this information is protected by the Federal Confidentiality of Alcohol and Drug Abuse Patient Records regulations: The Federal rules restrict any use of the information to criminally investigate or prosecute any alcohol or drug abuse patient.[facility] HospitalIn the event this information is protected by the Federal Confidentiality of Alcohol and Drug Abuse Patient Records regulations: The Federal rules restrict any use of the information to criminally investigate or prosecute any alcohol or drug abuse patient.[facility] HospitalIn the event this information is protected by the Federal Confidentiality of Alcohol and Drug Abuse Patient Records regulations: The Federal rules restrict any use of the information to criminally investigate or prosecute any alcohol or drug abuse patient.[facility] HospitalIn the event this information is protected by the Federal Confidentiality of Alcohol and Drug Abuse Patient Records regulations: The Federal rules restrict any use of the information to criminally investigate or prosecute any alcohol or drug abuse patient.[facility] HospitalIn the event this information is protected by the Federal Confidentiality of Alcohol and Drug Abuse Patient Records regulations: The Federal rules restrict any use of the information to criminally investigate or prosecute any alcohol or drug abuse patient.[facility] Reason for Visit (unrecogniz ed section and content) Reason Comments Follow Up Specialty Diagnoses / Procedures Referred By Anival aden Referred To Contact Family Practice / FAMILY MEDICINE Diagnoses Follow up/not seen since 02/2020 Procedures 4C EST Self Corrina Lennon, ÁLVARO.PITCH WORKER [address] [place] [address] Referral ID Status Reason Start Date Expiration Date V isits Requested Visits Authorized [id number] Closed Patient Cleared - INN Insurance Found 12/13/2021 10/15/2022 1 1 Reason Comments Anticoagulation Telephone Fu Reason Comments Anticoagulation Telephone Fu Home INR re sult Reason Comments Anticoagulation Telephone Fu Home INR re sult Reason Comments Appointment testing needed? Reason Onset Date Comments Anticoagulation Telephone Fu 04/04/2022 Gabrielle e INR Result Reason Comments Anticoagulation Telephone Fu Home INR Reason Comments Anticoagulation Telephone Fu Home INR re sult expected Reason Onset Date Comments Anticoagulation Telephone Fu 05/16/2022 Gabrielle e INR Result Reason Onset Date Comments Refill Request 05/19/2022 Reason Onset Date Comments Population Health Navigation Outreach 06/14/2022 [facility] care gaps Reason Onset Date Comments Anticoagulation 06/06/2022 Home INR Reason Onset Date Comments Anticoagulation 2022 INR result Reason Onset Date Comments Refill Request 07/22/2022 Reason Onset Date Comments Anticoagulation Telephone Fu 08/01/2022 Gabrielle e INR Result Reason Comments Consult Specialty Diagnoses / Procedures Referred By Anival aden Referred To Contact Cardiology / CARD ADMIN [facility] Diagnoses Paroxysmal atrial fibrillation (HCC) Nonrheumatic aortic valve stenosis Procedures CONSULT TO CARDIOLOGY OFFICE/OUTPATIENT FORMERLY [facility], [facility] MDM 60-74 MINUTES Corrina Lennon, ÁLVARO.PITCH WORKER [address] [place] [address] Card Admin [facility] [address] [place] [address] Referral ID Status Reason Start Date Expiration Date V isits Requested Visits Authorized [id number] Closed PCP Requested Referral 02/28/2022 10/15/2022 1 1 Reason Onset Date Comments ACM LUIS RN 09/07/2022 Medication Ad herence review at request of payer Reason Onset Date Comments Anticoagulation 08/22/2022 INR result Reason Comments Orders Refill Request Reason Comments Established Patient Reason Comments Anticoagulation Telephone Fu INR Home Te st Result Reason Comments Anticoagulation Telephone Fu Home INR ex pected Reason Onset Date Comments Anticoagulation Telephone Fu 11/28/2022 Gabrielle e INR Result Reason Onset Date Comments Anticoagulation Telephone Fu 12/19/2022 Gabrielle e INR Result Reason Onset Date Comments Anticoagulation 01/09/2023 INR Result Reason Onset Date Comments Refill Request 01/16/2023 Reason Comments Established Patient Follow-Up Reason Comments Refill Request Reason Onset Date Comments Anticoagulation Telephone Fu 04/24/2023 Gabrielle e INR Result Reason Onset Date Comments Anticoagulation Telephone Fu 05/22/2023 Gabrielle e INR Result Reason Onset Date Comments [facility] RN 2023 Medication Ad herence review per request of payer Reason Onset Date Comments Refill Request 07/04/2023 Reason Comments 6 Month Exam Reason Comments Results Reason Onset Date Comments [facility] RN 09/05/2023 Medication Ad herence review per request of payer Reason Onset Date Comments Anticoagulation Telephone Fu 12/04/2023 Gabrielle e INR Result Reason Onset Date Comments Anticoagulation Telephone Fu 12/21/2023 Gabrielle e INR Reason Comments skin laceration Reason Comments Laceration Fall Reason Onset Date Comments Anticoagulation Telephone Fu 01/15/2024 Gabrielle e INR Result Reason Onset Date Comments Refill Request 01/17/2024 Reason Comments requesting medication on list Reason Comments Anticoagulation Telephone Fu Home INR re sults Reason Onset Date Comments Anticoagulation Telephone Fu 03/07/2024 Reason Onset Date Comments [facility] RN 03/08/2024 Medication ad herence and suspected condition review per request of payor Reason Comments Follow Up Reason Comments Anticoagulation Telephone Fu Home INR Reason Comments Results Reason Onset Date Comments Anticoagulation Telephone Fu 04/08/2024 Gabrielle e INR Result Reason Comments Recheck 2 week follow up Reason Comments Radiology US Specialty Diagnoses / Procedures Referred By Contac t Referred To Contact US IMAGING Diagnoses Renal insufficiency Procedures US KIDNEY/BLADDER US RETROPERITONEAL REAL TIME W/IMAGE COMPLETE Guanakito Reno MD [address] [place] [address] [place] [id number] Referral ID Status Reason Start Date Expiration Date V isits Requested Visits Authorized [id number] Closed Auto-Generate d Referral 03/26/2024 04/25/2025 1 1 Reason Comments Follow Up htn- ultrasound on k idneys and labs, family worried about falls Reason Comments Switch Coupler - Other Reason Comments Edema Bilateral leg swelli ng, blood pressure check x 1 week Reason Comments Edema Leg swelling. HCTZ s topped in March Hypertension Follow up Reason Onset Date Comments Anticoagulation Telephone Fu 06/18/2024 Gabrielle e INR Reason Comments Aortic Stenosis Cal is here for TA VR evaluation. Reason Comments Aortic Stenosis Cal is here for TA VR evaluation. Reason Comments Patient Update Specialty Diagnoses / Procedures Referred By Anival aden Referred To Contact Diagnoses Valvular heart disease Valvular heart disease [I38] Procedures R & L HRT CATH WINJX HRT ART& L VENTR IMG CORONARY CATH 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 [facility] [address] [facility] [address] [place] [address] Referral ID Status Reason Start Date Expiration Date Visits Re quested Visits Authorized [id number] 1 1 Reason Onset Date Comments Anticoagulation 07/25/2024 Patient update Reason Comments New Patient Consult Referral Josselyn Ine man Stenosis Carotid stenosis Reason Onset Date Comments ACM LUIS RN 08/19/2024 Medication Ad herence Review per Request of Payor Reason Onset Date Comments Anticoagulation Telephone Fu 08/26/2024 Gabrielle e INR Result Reason Comments Patient Update Patient Question Reason Onset Date Comments Anticoagulation Telephone Fu 10/28/2024 Gabrielle e INR Result Reason Onset Date Comments Anticoagulation Telephone Fu 12/11/2024 Gabrielle e INR Reason Onset Date Comments Refill Request 01/07/2025 Reason Comments Anticoagulation Follow Up Home INR resul t Reason Comments 6 Month Exam Reason Onset Date Comments Anticoagulation Telephone Fu 02/20/2025 Gabrielle e INR Reason Onset Date Comments Anticoagulation Telephone Fu 03/24/2025 Gabrielle e INR Result Reason Comments Faxed to [facility] Reason Onset Date Comments Refill Request 04/08/2025 Reason Comments Patient Question Care Teams (unrecognized sec tion and content) Picture Booker Relationship Specialty Start Date End Date Guanakito Reno MD [address] [place], [place] [id number] PCP - General Family Practice 05/24/18 13, Pharmacist [id number] [place], [place] [address] Pharmacist Pharmacy 05/31/21 Picture Booker Relationship Specialty Start Date End Date Guanakito Reno MD [address] [place] [address] PCP - General Family Practice 05/24/18 13, Pharmacist [address]18 [place] [address] Pharmacist Pharmacy 05/31/21 Picture Booker Relationship Specialty Start Date End Date Guanakito Reno MD [address] [place] [address] PCP - General Family Practice 05/24/18 13, Pharmacist [address] [place] [address] Pharmacist Pharmacy 05/31/21 Picture Booker Relationship Specialty Start Date End Date Guanakito Reno MD [address] [place] [address] PCP - General Family Practice 05/24/18 13, Pharmacist [phone] [place] [address] Pharmacist Pharmacy 05/31/21 Picture Booker Relationship Specialty Start Date End Date Guanakito Reno MD [address] [place] [address] PCP - General Family Practice 05/24/18 13, Pharmacist [phone] [place] [address] Pharmacist Pharmacy 05/31/21 Picture Booker Relationship Specialty Start Date End Date Guanakito Reno MD [address] [place] [address] PCP - General Family Practice 05/24/18 13, Pharmacist [address] [facility] [place] [address] Pharmacist Pharmacy 05/31/21 Picture Booker Relationship Specialty Start Date End Date Guanakito Reno MD [address] [place] [address] PCP - General Family Practice 05/24/18 13, Pharmacist [address]80 [place] [address] Pharmacist Pharmacy 05/31/21 Picture Booker Relationship Specialty Start Date End Date Guanakito Reno MD [address] [place] [address] PCP - General Family Practice 05/24/18 13, Pharmacist 85101 [facility] [place] [address] Pharmacist Pharmacy 05/31/21 Picture Booker Relationship Specialty Start Date End Date Guanakito Reno MD [address] [place] [address] PCP - General Family Practice 05/24/18 13, Pharmacist 85201 [facility] [place] [address] Pharmacist Pharmacy 05/31/21 Picture Booker Relationship Specialty Start Date End Date Guanakito Reno MD [address] [place] [address] PCP - General Family Medicine 05/24/18 13, Pharmacist 54701 [facility] [place] [address] Pharmacist Pharmacy 05/31/21 Picture Booker Relationship Specialty Start Date End Date Guanakito Reno MD [address] [place] [address] PCP - General Family Medicine 05/24/18 13, Pharmacist 20819 [facility] [place] [address] Pharmacist Pharmacy 05/31/21 Picture Booker Relationship Specialty Start Date End Date Guanakito Reno MD [address] [place] [address] PCP - General Family Medicine 05/24/18 13, Pharmacist [address] [facility] [place] [address] Pharmacist Pharmacy 05/31/21 Picture Booker Relationship Specialty Start Date End Date Guanakito Reno MD [address] [place] [address] PCP - General Family Medicine 05/24/18 13, Pharmacist [phone] [facility] [place] [address] Pharmacist Pharmacy 05/31/21 Picture Booker Relationship Specialty Start Date End Date Guanakito Reno MD [address] [place] [address] PCP - General Family Medicine 05/24/18 13, Pharmacist 62970 [facility] [place] [address] Pharmacist Pharmacy 05/31/21 Picture Booker Relationship Specialty Start Date End Date Guanakito Reno MD [address] [place] [address] PCP - General Family Medicine 05/24/18 13, Pharmacist 36123 [facility] [place] [address] Pharmacist Pharmacy 05/31/21 Picture Booker Relationship Specialty Start Date End Date Guanakito Reno MD [address] [place] [address] PCP - General Family Medicine 05/24/18 13, Pharmacist 76018 [facility] [place] [address] Pharmacist Pharmacy 05/31/21 Picture Booker Relationship Specialty Start Date End Date Guanakito Reno MD [address] [place] [address] PCP - General Family Medicine 05/24/18 13, Pharmacist 38275 [facility] [place] [address] Pharmacist Pharmacy 05/31/21 Picture Booker Relationship Specialty Start Date End Date Guanakito Reno MD [address] [place] [address] PCP - General Family Medicine 05/24/18 13, Pharmacist 96405 [facility] [place] [address] Pharmacist Pharmacy 05/31/21 Picture Booker Relationship Specialty Start Date End Date Guanakito Reno MD [address] [place] [address] PCP - General Family Medicine 05/24/18 13, Pharmacist [address] [place] [address] Pharmacist Pharmacy 05/31/21 Picture Booker Relationship Specialty Start Date End Date Guanakito Reno MD [address] [place] [address] PCP - General Family Medicine 05/24/18, Pharmacist [address]5987 [place] [address] Pharmacist Pharmacy 05/31/21 Picture Booker Relationship Specialty Start Date End Date Guanakito Reno MD [address] [place] [address] PCP - General Family Medicine 05/24/18, Pharmacist [phone] [place] [address] Pharmacist Pharmacy 05/31/21 Picture Booker Relationship Specialty Start Date End Date Guanakito Reno MD [address] [place] [address] PCP - General Family Medicine 05/24/18, Pharmacist [phone] [place] [address] Pharmacist Pharmacy 05/31/21 Picture Booker Relationship Specialty Start Date End Date Guanakito Reno MD [address] [place] [address] PCP - General Family Medicine 05/24/18 13, Pharmacist [address] [place] [address] Pharmacist Pharmacy 05/31/21 Picture Booker Relationship Specialty Start Date End Date Guanakito Reno MD [address] [place] [address] PCP - General Family Medicine 05/24/18 13, Pharmacist [address] [place] [address] Pharmacist Pharmacy 05/31/21 Picture Booker Relationship Specialty Start Date End Date Guanakito Reno MD [address] [place] [address] PCP - General Family Medicine 05/24/18 13, Pharmacist [address]145 [place] [address] Pharmacist Pharmacy 05/31/21 Picture Booker Relationship Specialty Start Date End Date Guanakito Reno MD [address] [place] [address] PCP - General Family Medicine 05/24/18 13, Pharmacist [address]671 [place] [address] Pharmacist Pharmacy 05/31/21 Picture Booker Relationship Specialty Start Date End Date Guanakito Reno MD [address] [place] [address] PCP - General Family Medicine 05/24/18 13, Pharmacist [address]92 [place] [address] Pharmacist Pharmacy 05/31/21 Picture Booker Relationship Specialty Start Date End Date Guanakito Reno MD [address] [place] [address] PCP - General Family Medicine 05/24/18 13, Pharmacist 24079 [facility] [place] [address] Pharmacist Pharmacy 05/31/21 Picture Booker Relationship Specialty Start Date End Date Guanakito Reno MD [address] [place] [address] PCP - General Family Medicine 05/24/18 13, Pharmacist [address]236 [place] [address] Pharmacist Pharmacy 05/31/21 Picture Booker Relationship Specialty Start Date End Date Guanakito Reno MD [address] [place] [address] PCP - General Family Medicine 05/24/18 13, Pharmacist [address]19 [place] [address] Pharmacist Pharmacy 05/31/21 Picture Booker Relationship Specialty Start Date End Date Guanakito Reno MD [address] [place] [address] PCP - General Family Medicine 05/24/18, Pharmacist 24147 [place] [address] Pharmacist Pharmacy 05/31/21 Picture Booker Relationship Specialty Start Date End Date Guanakito Reno MD [address] [place] [address] PCP - General Family Medicine 05/24/18 13, Pharmacist [address]50 [place] [address] Pharmacist Pharmacy 05/31/21 Picture Booker Relationship Specialty Start Date End Date Guanakito Reno MD [address] [place] [address] PCP - General Family Medicine 05/24/18, Pharmacist [address]249 [place] [address] Pharmacist Pharmacy 05/31/21 Picture Booker Relationship Specialty Start Date End Date Guanakito Reno MD [address] [place] [address] PCP - General Family Medicine 05/24/18 13, Pharmacist 28802 [place] [address] Pharmacist Pharmacy 05/31/21 Picture Booker Relationship Specialty Start Date End Date Guanakito Reno MD [address] [place] [address] PCP - General Family Medicine 05/24/18 13, Pharmacist [address]85 [place] [address] Pharmacist Pharmacy 05/31/21 Picture Booker Relationship Specialty Start Date End Date Guanakito Reno MD [address] [place] [address] PCP - General Family Medicine 05/24/18 13, Pharmacist [address]451 [place] [address] Pharmacist Pharmacy 05/31/21 Picture Booker Relationship Specialty Start Date End Date Guanakito Reno MD [address] [place] [address] PCP - General Family Medicine 05/24/18 13, Pharmacist 96851 [place] [address] Pharmacist Pharmacy 05/31/21 Picture Booker Relationship Specialty Start Date End Date Guanaktio Reno MD [address] [place] [address] PCP - General Family Medicine 05/24/18 13, Pharmacist [address]45 [place] [address] Pharmacist Pharmacy 05/31/21 Picture Booker Relationship Specialty Start Date End Date Guanakito Reno MD [address] [place] [address] PCP - General Family Medicine 05/24/18 13, Pharmacist 81343 [place] [address] Pharmacist Pharmacy 05/31/21 Picture Booker Relationship Specialty Start Date End Date Guanakito Reno MD [address] [place] [address] PCP - General Family Medicine 05/24/18 13, Pharmacist [address]10 [place] [address] Pharmacist Pharmacy 05/31/21 Picture Booker Relationship Specialty Start Date End Date Guanakito Reno MD [address] [place] [address] PCP - General Family Medicine 05/24/18 13, Pharmacist [address]148 [place] [address] Pharmacist Pharmacy 05/31/21 Picture Booker Relationship Specialty Start Date End Date Guanakito Reno MD [address] [place] [address] PCP - General Family Medicine 05/24/18 13, Pharmacist [address]66 [place] [address] Pharmacist Pharmacy 05/31/21 Picture Booker Relationship Specialty Start Date End Date Guanakito Reno MD [address] [place] [address] PCP - General Family Medicine 05/24/18, Pharmacist [address]182 [place] [address] Pharmacist Pharmacy 05/31/21 Picture Booker Relationship Specialty Start Date End Date Guanakito Reno MD [address] [place] [address] PCP - General Family Medicine 05/24/18 13, Pharmacist [address]12 [place] [address] Pharmacist Pharmacy 05/31/21 Picture Booker Relationship Specialty Start Date End Date Guanakito Reno MD [address] [place] [address] PCP - General Family Medicine 05/24/18 13, Pharmacist [address]774 [place] [address] Pharmacist Pharmacy 05/31/21 Picture Booker Relationship Specialty Start Date End Date Guanakito Reno MD [address] [place] [address] PCP - General Family Medicine 05/24/18 13, Pharmacist [address]99 [place] [address] Pharmacist Pharmacy 05/31/21 Picture Booker Relationship Specialty Start Date End Date Guanakito Reno MD [address] [place] [address] PCP - General Family Medicine 05/24/18 13, Pharmacist [address]85 [place] [address] Pharmacist Pharmacy 05/31/21 Picture Booker Relationship Specialty Start Date End Date Guanakito Reno MD [address] [place] [address] PCP - General Family Medicine 05/24/18 13, Pharmacist 71868 [place] [address] Pharmacist Pharmacy 05/31/21 Picture Booker Relationship Specialty Start Date End Date Guanakito Reno MD [address] [place] [address] PCP - General Family Medicine 05/24/18 13, Pharmacist 00941 [place] [address] Pharmacist Pharmacy 05/31/21 Picture Booker Relationship Specialty Start Date End Date Guanakito Reno MD [address] [place] [address] PCP - General Family Medicine 05/24/18 13, Pharmacist 68378 [place] [address] Pharmacist Pharmacy 05/31/21 Picture Booker Relationship Specialty Start Date End Date Guanakito Reno MD [address] [place] [address] PCP - General Family Medicine 05/24/18 13, Pharmacist 26231 [place] [address] Pharmacist Pharmacy 05/31/21 Picture Booker Relationship Specialty Start Date End Date Guanakito Reno MD [address] [place] [address] PCP - General Family Medicine 05/24/18 13, Pharmacist [address]86 [place] [address] Pharmacist Pharmacy 05/31/21 Corrina Lennon APRN.PITCH WORKER [address] [place] [address] Waiter/Waitress Informal [facility] 09/23/24 Carolina Landeros [employer].PITCH WORKER [address] [place] [address] [facility] Picture Booker Relationship Specialty Start Date End Date Guanakito Reno MD [address] [place] [address] PCP - General Family Medicine 05/24/18 13, Pharmacist [address]752 [facility] [place] [address] Pharmacist Pharmacy 05/31/21 Corrina Lennon APRN.PITCH WORKER [address] [place] [address] [facility] 09/[facility]/24 Carolina Landeros APRN.PITCH WORKER [address] [place] [address] Waiter/Waitress Informal Family [facility] 09/23/24 Picture Booker Relationship Specialty Start Date End Date Guanakito Reno MD [address] [facility] [address] PCP - General Family Medicine 05/24/18 13, Pharmacist [address]60 [place] [address] Pharmacist Pharmacy 05/31/21 Corrina Lennon [employer].PITCH WORKER [address] [place] [address] Waiter/Waitress Informal Family [facility] 09/23/24 Carolina Landeros [employer].PITCH WORKER [address] [place] [address] Waiter/Waitress Informal Family [facility] 09/23/24 Picture Booker Relationship Specialty Start Date End Date Guanakito Reno MD [address] [place] [address] PCP - General Family Medicine 05/24/18 13, Pharmacist [address]61 [place] [address] Pharmacist Pharmacy 05/31/21 Corrina Lennon [employer].PITCH WORKER [address] [place] [address] Waiter/Waitress Informal Family [facility] 09/23/24 Carolina Landeros [employer].PITCH WORKER [address] [facility] [address] Waiter/Waitress Informal Family [facility] 09/23/24 Picture Booker Relationship Specialty Start Date End Date Guanakito Reno MD [address] [place] [address] PCP - General Family Medicine 05/24/18 13, Pharmacist [address]274 [facility] [place] [address] Pharmacist Pharmacy 05/31/21 Corrina Lennon APRN.PITCH WORKER [address] [place] [address] Waiter/Waitress Informal [facility] 09/23/24 Carolina Landeros [employer].PITCH WORKER [address] [place] [address] Waiter[facility] 09/[facility]/24 Picture Booker Relationship Specialty Start Date End Date Guanakito Reno MD [address] [place] [address] PCP - General Family Medicine 05/24/18 13, Pharmacist [address]04 [place] [address] Pharmacist Pharmacy 05/31/21 Corrina Lennon APRN.PITCH WORKER [address] [place] [address] [facility]er[facility] 09/23/24 Carolina Landeros [employer].PITCH WORKER [address] [place] [address] Waiter/[facility]ress [facility] 09/23/24 Picture Booker Relationship Specialty Start Date End Date Guanakito Reno MD [address] [place] [address] PCP - General Family Medicine 05/24/18 13, Pharmacist 63999 [facility] [place] [address] Pharmacist Pharmacy 05/31/21 Corrina Lennon APRN.PITCH WORKER [address] [place] [address] Waiter/Waitress Informal Family [facility] 09/23/24 Carolina Landeros APRN.PITCH WORKER [address] [place] [address] Waiter/Waitress Informal [facility] 09/23/24 Picture Booker Relationship Specialty Start Date End Date Guanakito Reno MD [address] [place] [address] PCP - General Family Medicine 05/24/18 13, Pharmacist [address]055 [place] [address] Pharmacist Pharmacy 05/31/21 Corrina Lennon APRN.PITCH WORKER [address] [place] [address] Waiter[facility] 09/23/24 Carolina Landeros APRN.PITCH WORKER [address] [place] [address] [facility] 09/23/24 Picture Booker Relationship Specialty Start Date End Date Guanakito Reno MD [address] [place] [address] PCP - General Family Medicine 05/24/18 13, Pharmacist [address]690 [place] [address] Pharmacist Pharmacy 05/31/21 Corrina Lennon APRN.PITCH WORKER [address] [place] [address] Waiter/Waitress Informal Family [facility] 09/23/24 Carolina Landeros APRN.PITCH WORKER [address] [place] [address] Waiter/Waitress Informal [facility] 09/23/24 Picture Booker Relationship Specialty Start Date End Date Guanakito Reno MD [address] [place] [address] PCP - General Family Medicine 05/24/18 13, Pharmacist [address]458 [place] [address] Pharmacist Pharmacy 05/31/21 Corrina Lennon [employer].PITCH WORKER [address] [place] [address] Waiter/Waitress Informal Family Medicine 09/23/24 Carolina Landeros [employer].PITCH WORKER [address] [place] [address] [facility] 09/23/24 Picture Booker Relationship Specialty Start Date End Date Guanakito Reno MD [address] [place] [address] PCP - General Family Medicine 05/24/18 13, Pharmacist [address]50 [place] [address] Pharmacist Pharmacy 05/31/21 Corrina Lennon [employer].PITCH WORKER [address] [place] [address] Waiter/Waitress Informal Family Medicine 09/23/24 Carolina Landeros [employer].PITCH WORKER [address] [place] [address] Waiter/Waitress Informal Family [facility] 09/23/24 Picture Booker Relationship Specialty Start Date End Date Guanakito Reno MD [address] [place] [address] PCP - General Family Medicine 05/24/18 13, Pharmacist [address] [place] [address] Pharmacist Pharmacy 05/31/21 Corrina Lennon APRN.PITCH WORKER [address] [place], [place] [address] Waiter/Waitress Informal Family Medicine 09/23/24 Carolina Landeros APRN.PITCH WORKER [address] [place] [address] Waiter/Waitress Informal Family Medicine 09/23/24 Team Status: Active Member Role/Relationship Status Dates Dr. Guanakito Reno MD Primary Care Provider Active Team Status: Inactive Member Role/Relationship Status Dates Dr. Guanakito Reno MD Primary Care Provider Active Start: March 07, 2025 End: March 07, 2025 Dr. Guanakito Reno MD Referring Provider Active Start: March 07, 2025 End: March 07, 2025 Josafat García MD Attending Provider Active St art: March 07, 2025 End: March 07, 2025 Team Status: Active Member Role/Relationship Status Dates Dr. Guanakito Reno MD Primary Care Provider Active Start: April 14, 2025 Josafat García MD Attending Provider Active St art: April 14, 2025 Josafat García MD Referring Provider Active St art: April 14, 2025 Team Status: Active Member Role/Relationship Status Dates Dr. Guanakito Reno MD Primary Care Provider Active Start: April 17, 2025 Dr. Bianka ORTEZ MD Attending Provider Active Start: April 17, 2025 Team Status: Active Member Role/Relationship Status Dates Dr. Guanakito Reno MD Primary Care Provider Active Start: April 24, 2025 Dr. Josafat ORTEZ MD Attending Provider Active Start: April 24, 2025 Team Status: Active Member Role/Relationship Status Dates Dr. Guanakito Reno MD Primary Care Provider Active Start: April 29, 2025 Dr. Josafat ORTEZ MD Attending Provider Active Start: April 29, 2025 Team Status: Active Member Role/Relationship Status Dates Dr. Guanakito Reno MD Primary Care Provider Active Start: May 01, 2025 Dr. Josafat ORTEZ MD Attending Provider Active Start: May 01, 2025 Team Status: Active Member Role/Relationship Status Dates Dr. Guanakito Reno MD Primary Care Provider Active Start: May 02, 2025 Dr. Guanakito Reno MD Referring Provider Active Start: May 02, 2025 Dr. David Navarrete DO Attending Provider Active Start: May 02, 2025 Team Status: Inactive Member Role/Relationship Status Dates Dr. Guanakito Reno MD Primary Care Provider Active Start: May 02, 2025 End: May 02, 2025 Dr. Burt Zamora MD Attending Provider Active S tart: May 02, 2025 End: May 02, 2025 Team Status: Inactive Member Role/Relationship Status Dates Dr. Guanakito Reno MD Primary Care Provider Active Start: May 02, 2025 End: May 02, 2025 Dr. Guanakito Reno MD Referring Provider Active Start: May 02, 2025 End: May 02, 2025 Dr. David Navarrete DO Attending Provider Active Start: May 02, 2025 End: May 02, 2025 Goals (unrecognized section and content) Goals may be documented in a n alternate sectionGoals may be documented in an alternate section FOR RECORDS PERTAINING TO PATIENTS WHO ARE OR HAVE BEEN ENROLLED IN A CHEMICAL DEPENDENCY/SUBSTANCEABUSE PROGRAM, SOME INFORMATION MAY BE OMITTED. This clinical summary was aggregated from multiple sources. Caution should be exercised in using it in the provision of clinical care. This summary normalizes information from multiple sources, and as a consequence, information in this document may materially change the coding, format and clinical context of patient data. In addition, data may be omitted in some cases. CLINICAL DECISIONS SHOULD BE BASED ON THE PRIMARY CLINICAL RECORDS. [facility] [employer] [facility]. provides no warranty or guarantee of the accuracy or completeness of information in this document.
[2025-05-08 08:39] LABS: Prothrombin Time (Protime)PT. 33.1 SECONDS (11.7-14.9)
== END ==
LOC: OLS.SW 05:00
PROVIDERS: PCP Family Medicine; Visit Provider Family Medicine
DX: I48.91 Unspecified atrial fibrillation (principal)
CPT/HCPCS: 36415; 85610

== ENCOUNTER → 2025-05-13 | Outpatient (REF) | payer MEDICARE, SELFPAY ==
[2025-05-13 08:14] LABS: Prothrombin Time (Protime)PT. 20.6 SECONDS (11.7-14.9)
== END ==
LOC: OLS.SW 05:00
PROVIDERS: PCP Family Medicine; Visit Provider Family Medicine
DX: I48.0 Paroxysmal atrial fibrillation (principal); I35.0 Nonrheumatic aortic (valve) stenosis
CPT/HCPCS: 36415; 85610

== ENCOUNTER → 2025-05-15 05:00 | Outpatient (REF) | payer MEDICARE, SELFPAY ==
--- OUTSIDE RECORDS SUMMARY | 2025-05-15 03:44 | XMS RPT_ITS | CCD ---
Author Organization [facility] Care Team Providers Care Business Support Professional Name Role Phone VIPIN CARDONA Unavailable Unavailable [...] Guanakito Reno MD Primary Care Provider Ha[address] COURT OPERATIONS CLERK.Corrina OCONNELL Unavailable [phone] OPERATIONS CLERK.KOURTNEY, Carolina A Unavailable [phone] OPERATIONS CLERK.KOURTNEY, Carolina A Unavailable JOSSELYN MAYER Referring Unavailable [...] ilable SHADIA, GUANAKITO J Primary Care Unavailable Shadia JAMES, Dr. Calabrese Primary Care Provider Shadia JAMES, Dr. Calabrese Referring Provider Josafat García MD Attending Provider [phone] Josafat García MD Referring Provider [phone] Lisa JAMES, Dr. Carlton Attending Provider Unavaila ayleen Simon MD, Dr. Maurice Attending Provider Unavail able Dr. David Navarrete DO Attending Provider Noah JAMES, Dr. Dallas Attending Provider [phone] CAROLINA LANDEROS Attending Unavailable SHADIA, GUANAKITO J Primary Care Unavailable SHADIA, GUANAKITO J Primary Care Unavailable SUPPCAROLINA LUNA Attending Unavailable SHADIA, GUANAKITO J Primary Care Unavailable SHADIA, GUANAKITO J Attending Unavailable SHADIA, GUANAKITO J Primary Care Unavailable JOSSELYN MAYER Referring Unavailabl e SHADIA, GUANAKITO J Primary Care Unavailable RODOLFO PIÑASSICA Dori Referring Unavailable SHADIA, GUANAKITO J Primary Care Unavailable SUPPCAROLINA LUNA Attending Unavailable SHADIA, GUANAKITO J Primary Care Unavailable SUPPCAROLINA LUNA Referring Unavailable SHADIA, GUANAKITO J Primary Care Unavailable Raquel, Josafat Attending Unavailable Shadia, Guanakito Primary Care Unavailable Shadia, Guanakito Referring Unavailable Shadia, Guanaikto Primary Care Unavailable David Navarrete Attending Unavailable [place], Guanakito Referring Unavailable Mollison, Josafat Attending Unavailable Deysiison, Josafat Referring Unavailable [place], Guanakito Primary Care Unavailable Bianka Olivera Attending Unavailable Shadia, Guanakito Primary Care Unavailable [place], Guanakito Primary Care Unavailable Josafat Oliva Attending Unavailable Shadia, Guanakito Primary Care Unavailable Josafat Oliva Attending Unavailable Ariana Khan Attending Unavailable Ariana Khan Referring Unavailable [place], Guanakito Primary Care Unavailable [place], Guanakito Primary Care Unavailable Josafat Oliva Attending Unavailable [place], Guanakito Primary Care Unavailable Josafat Oliva Attending Unavailable [place], Guanakito Primary Care Unavailable Josafat Oliva Attending Unavailable Shadia, Guanakito Primary Care Unavailable Josafat Oliva Attending Unavailable [place], Guanakito Primary Care Unavailable Burt Zamora Attending Unavailable Allergies Allergy Classification Reported Allergen(s) Allergy Type Date of Onset Reaction(s) Facility (3 sources) Environmental Allergies: Uncoded; Translations: [Environmental Allergies: Uncoded] Allergy to substance [facility] Medications Current Medications Medication Drug Class(es) [...] (2 sources) Stimulant Laxative Star t: 04-15 Bisacodyl (Dulcolax (Bisacodyl)) 10 mg suppository Active [...] hydrochloride 10 mg oral tablet (20 sources) A-unrmeu-B-aspart ate Receptor Antagonist Start: 08-21-2019 End: 01-21-2025 take 1 tablet by mouth once daily memantine (NAMENDA) 10 mg tablet Indications: Mixed dementia (HCC) Take 1 tablet by mouth once daily. 90 tablet 3 01/21/2025 Active Comment on above: Take 1 tablet by mary th once daily. 24 hr metoprolol succinate 25 [...] 1 tablet by mary th once daily. nitroglycerin 0.4 mg sublingual tablet [...] 4 Resolved: 4 11-11-2016 Chronic Other aftercare (2 sources) FPC (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; Translations: [FPC (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] Onset: 0 Episodic Other aftercare (1 source) Other assisted (current) drug therapy; Translations: [Other ferry terminal agent (current) drug therapy] Onset: 5 Episodic Other [...] sources) Long-term current use of anticoagulant; Translations: [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 pharmacist (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] Onset: 02-04-2020 02-04-2020 Episodic Other circulatory disease (20 sources) [...] Time w/INRon INR Coag (PPP) [Relative time] 1.7 {INR} Normal [facility] Comment on above: Order Comment: 317.1 Performed By: #### L 300.8051 #### [facility] [address] [place], [address] PT Coag (PPP) [Time] 20.6 s High 11.7-14.9 [facility] Comment on above: Order Comment: 317.1 Performed By: #### L 300.3900 #### [facility] [address] [place], [address] Prothrombin Time w/INRon INR Coag (PPP) [Relative time] 3.2 {INR} Normal [facility] Comment on above: Order Comment: 317.1 Performed By: #### L 300.3900 ####[facility] [address] [place], [address] PT Coag (PPP) [Time] 33.1 s High 11.7-14.9 [facility] Comment on above: Order Comment: 317.1 Performed By: #### L 300.3900 ####[facility] [address] [place], [address] Prothrombin Time w/INRon INR Coag (PPP) [Relative time] 4.1 {INR} Invalid Interpretation Code [facility] Comment on above: Order Comment: FINGE RSTICK CONFIRMATION Result Comment: CRIT ICAL VALUE CALLED TO IRMA SOLOMON (OLS.SW) 05/06/25 0801 Travis Yost. RESULTS READ BACK BY SAME. Performed By: #### L 300.3900 #### [facility] [address] [place], [address] PT Coag (PPP) [Time] 40.8 s High 11.7-14.9 [facility] Comment on above: Order Comment: FINGE RSTICK CONFIRMATION Performed By: #### L 300.3900 #### [facility] [address] [place], [address] Protime w/INR Fingerstickon 05-06-2025 INR Coag (PPP) [Relative time] 4.3 {INR} Invalid Interpretation Code [facility] Comment on above: Result Comment: Crit ical Value > 4.0 Performed By: #### L 9200.0000 ####[facility] [address] [place], [place], [address] Protime Coagsen 42.3 SEC High 11.7-14.9 [facility] Comment on above: Performed By: #### L 9200.0000 ####[facility] [address] [place], [address] Orthopedic Visit Reporton Orthopedic Visit Report [facility] [address] [place] [address] [address] [place] [address] OFFICE VISIT Date of Service: 05/02/25 MR#: [id number] Acct: [id number] Name: CAL MITCHELL Rep #: [id number] : 1945 Provider: Dr. David granados DO Age/Sex: 79/M Location[place] [facility] Status: Signed Intake Vital Signs 03/07/25 12:57 [...] History acetaminophen 650 mg rectal 650 mg UT Q4H PRN 05/02/25 5 History suppository aluminum-mag hydroxide-simethicone 30 ml PO Q4H PRN 05/02/25 History 200 mg-200 mg-20 mg/5 mL oral susp (Antacid) bisacodyl 10 mg rectal suppository 10 mg UT QDAY PRN 05/02/2505/02 History (Dulcolax (bisacodyl)) dextrose [...] hr sodium phosphates 19 gram-7 118 ml UT ONCE PRN 05/02/25 History gram/118 mL enema (Fleet Enema) Have you [facility] in the past year?: [facility] Closed fracture of right proximal [...] is here today with his son and ptdjckbn-nu-huk. Usually ambulates with a walker or a cane. Had a fall. Was mainly complaining about pain to the upper extremity was seen in a peripheral hospital referred here given a sling they found approximately wrist fracture on the right side. The patient does not speak very much but he converses overall well he is qgatb-auvp-blqonhyb fairly stoic. Plan:79-year-old man with a (more content not included)... Normal [facility] Shoulder min 2 Viewson 05-02 Shoulder min 2 Views [facility] Imaging Services [address], [place] [id number] Shoulder min 2 Views MR#: [id number] Acct: [id number] Name: CAL MITCHELL Rep #: [id number] : 1945 M 79 From: Magdalena Lala PCP: Dr. Guanakito Reno MD Status: DEP AMB Study: Shoulder min 2 Views Date of Exam: 05/02/25 Exam# [id number] Ordering Dr: David Navarrete DO PROCEDURE: SHOULDER [...] changes involving the glenohumeral joint. Reading Location: [id number] CC: Dr. David Navarrete DO; Dr. Guanakito Reno MD Lead Coater: Signed Normal [facility] International normalized rat io (INR) calculationOrdered By: Josafat Simon on 05-01-2025 INR Coag (Bld) [Relative time] 3.2 {INR} [facility] Prothrombin Time w/INRon INR Coag (PPP) [Relative time] 3.2 {INR} Normal [facility] Comment on above: Performed By: #### L 300.3900 #### [facility] [address] [place], [place], [address] PT Coag (PPP) [Time] 33.6 s High 11.7-14.9 [facility] Comment on above: Performed By: #### L 300.3900 #### [facility] [address] [place], [place], [address] Prothrombin timeOrdered By: Josafat Simon on 05-01-2025 PT Coag (PPP) [Time] 33.6 s High 11.7-14.9 [facility] International normalized rat io (INR) calculationOrdered By: Josafat Simon on 04-29-2025 INR Coag (Bld) [Relative time] 3.1 {INR} [facility] Prothrombin Time w/INRon INR Coag (PPP) [Relative time] 3.1 {INR} Normal [facility] Comment on above: Performed By: #### L 300.3900 ####[facility] [address] [place], [address] Prothrombin timeOrdered By: Josafat Simon on 04-29-2025 PT Coag (PPP) [Time] 32.2 s High 11.7-14.9 [facility] Comment on above: Performed By: #### L 300.3900 ####[facility] [address] [place], [address] International normalized rat io (INR) measurement by fingerstickOrdered By: Josafat Simon on 04-24-2025 INR Coag (BldC) [Relative time] 3.5 [facility] Comment on above: Critical Value > 4.0 Protime w/INR Fingerstickon 04-24-2025 INR Coag (PPP) [Relative time] 3.5 {INR} Normal [facility] Comment on above: Result Comment: Crit ical Value > 4.0 Performed By: #### L 9200.0000 #### [facility] [address] [place], [address] Protime Coagsen 35.4 SEC High 11.7-14.9 [facility] Comment on above: Performed By: #### L 9200.0000 #### [facility] [address] [place], [address] Whole blood prothrombin time Ordered By: Josafat Simon on 04-24-2025 PT Coag (Bld) [Time] 35.4 s High 11.7-14.9 [facility] Anion gap in Serum or Plasma Ordered By: Bianka Gonzalez on 04-17-2025 Anion gap [Moles/Vol] 10 mmol/L 5- [facility] BUN/creatinine ratioOrdered By: Bianka Gonzalez on 04-17-2025 Urea nitrogen/Creatinine [Mass ratio] 21.1 mg/mg High - [facility] Basic Metabolic Profile (BMP )on 04-17-2025 BUN/CRE 21.1 RATIO High - [facility] Comment on above: Order Comment: 213 Performed By: #### L 500.2500, L300.3900, L100.0500 #### [facility] [address] [place], [address] Calcium [Mass/Vol] 8.2 mg/dL Normal 7.6-11.0 [facility] Comment on above: Order Comment: 213 Performed By: #### L 500.2500, L300.3900, L100.0500 #### [facility] [address] [place], [address] Chloride [Moles/Vol] 111 mmol/L High 98-108 [facility] Comment on above: Order Comment: 213 Performed By: #### L 500.2500, L300.3900, L100.0500 #### [facility] [address] [place], [address] CO2 [Moles/Vol] 17.2 mmol/L Low 21.0-32.0 [facility] Comment on above: Order Comment: 213 Performed By: #### L 500.2500, L300.3900, L100.0500 #### [facility] [address] [place], [address] Creatinine [Mass/Vol] 2.45 mg/dL High 0.70-1.20 [facility] Comment on above: Order Comment: 213 Performed By: #### L 500.2500, L300.3900, L100.0500 #### [facility] [address] [place], [address] GAP 10 Normal 5-15 [facility] Comment on above: Order Comment: 213 Performed By: #### L 500.2500, L300.3900, L100.0500 #### [facility] [address] [place], [address] GFR/1.73 sq M.predicted among non-blacks MDRD (S/P/Bld) [Vol rate/Area] 26 mL/min/{1.73_m2} Low >60 [facility] Comment on above: Order Comment: 213 Result Comment: mL/m in/1.73m2 CKD-EPI Creatinine Equation (2020) Performed By: #### L 500.2500, L300.3900, L100.0500 #### [facility] [address] [place], [address] Glucose [Mass/Vol] 137 mg/dL High 70-99 [facility] Comment on above: Order Comment: 213 Performed By: #### L 500.2500, L300.3900, L100.0500 #### [facility] [address] [place], [address] Potassium [Moles/Vol] 4.9 mmol/L Normal 3.3-5.1 [facility] Comment on above: Order Comment: 213 Performed By: #### L 500.2500, L300.3900, L100.0500 #### [facility] [address] [place], [address] Sodium [Moles/Vol] 139 mmol/L Normal 133-145 [facility] Comment on above: Order Comment: 213 Performed By: #### L 500.2500, L300.3900, L100.0500 #### [facility] [address] [place], [address] Urea nitrogen [Mass/Vol] 52 mg/dL High 4-19 [facility] Comment on above: Order Comment: 213 Performed By: #### L 500.2500, L300.3900, L100.0500 #### [facility] [address] [place], [address] CBC-Complete Blood Cnt No Di ffon 04-17-2025 Erythrocyte distribution width (RBC) [Ratio] 16.4 % High 11.6-14.6 [facility] Comment on above: Order Comment: 213 Performed By: #### L 500.2500, L300.3900, L100.0500 #### [facility] [address] [place], [address] Hematocrit (Bld) [Volume fraction] 35.2 % Low 40-54 [facility] Comment on above: Order Comment: 213 Performed By: #### L 500.2500, L300.3900, L100.0500 #### [facility] [address] [place], [address] Hemoglobin (Bld) [Mass/Vol] 10.6 g/dL Low 13.0-16.5 [facility] Comment on above: Order Comment: 213 Performed By: #### L 500.2500, L300.3900, L100.0500 #### [facility] [address] [place], [address] MCH (RBC) [Entitic mass] 29.2 pg Normal 27.0-32.0 [facility] Comment on above: Order Comment: 213 Performed By: #### L 500.2500, L300.3900, L100.0500 #### [facility] [address] [place], [address] MCHC (RBC) [Mass/Vol] 30.1 g/dL Low 32-36 [facility] Comment on above: Order Comment: 213 Performed By: #### L 500.2500, L300.3900, L100.0500 #### [facility] [address] [place], [address] MCV (RBC) [Entitic vol] 97.0 fL High 80-94 [facility] Comment on above: Order Comment: 213 Performed By: #### L 500.2500, L300.3900, L100.0500 #### [facility] [address] [place], [address] Platelet mean volume (Bld) [Entitic vol] 10.0 fL Normal 6.2-12.0 [facility] Comment on above: Order Comment: 213 Performed By: #### L 500.2500, L300.3900, L100.0500 #### [facility] [address] [place], [address] Platelets (Bld) [#/Vol] 161 10*3/uL Normal 150-450 [facility] Comment on above: Order Comment: 213 Performed By: #### L 500.2500, L300.3900, L100.0500 #### [facility] [address] [place], [address] RBC (Bld) [#/Vol] 3.63 10*6/uL Low 4.6-6.2 [facility] Comment on above: Order Comment: 213 Performed By: #### L 500.2500, L300.3900, L100.0500 #### [facility] [address] [place], [address] RDW SD 58.6 fl High 35.1-43.9 [facility] Comment on above: Order Comment: 213 Performed By: #### L 500.2500, L300.3900, L100.0500 #### [facility] [address] [place], [address] WBC (Bld) [#/Vol] 7.2 10*3/uL Normal 4.4-11.0 [facility] Comment on above: Order Comment: 213 Performed By: #### L 500.2500, L300.3900, L100.0500 #### [facility] [address] [place], [address] Carbon dioxide, total [Moles /volume] in Central venous bloodOrdered By: Bianka Gonzalez on 04-17-2025 CO2 [Moles/Vol] 17.2 mmol/L Low 21.0-32.0 [facility] Chloride assayOrdered By: Josr Gonzalez on 04-17-2025 Chloride [Moles/Vol] 111 mmol/L High 98-108 [facility] Erythrocyte distribution wid th ratioOrdered By: Bianka Gonzalez on 04-17-2025 Erythrocyte distribution width (RBC) [Ratio] 16.4 % High 11.6-14.6 [facility] Erythrocyte distribution wid th standard deviationOrdered By: Bianka Gonzalez on 04-17-2025 Erythrocyte distribution width (RBC) [Ratio] 58.6 fl High 35.1-43.9 [facility] Glomerular filtration rate ( GFR) estimation/1.73 sq m using serum, plasma, or whole bOrdered By: Bianka Gonzalez on 04-17-2025 GFR/1.73 sq M.predicted among non-blacks MDRD (S/P/Bld) [Vol rate/Area] 26 mL/min/{1.73_m2} Low >60 [facility] Comment on above: mL/min/1.73m2 CKD-EP I Creatinine Equation (2020) Hematocrit Auto (Bld) [Volum e fraction]Ordered By: Bianka Gonzalez on 04-17-2025 Hematocrit (Bld) [Volume fraction] 35.2 % Low 40-54 [facility] Hemoglobin measurementOrdere d By: Bianka Gonzalez on 04-17-2025 Hemoglobin (Bld) [Mass/Vol] 10.6 g/dL Low 13.0-16.5 [facility] International normalized rat io (INR) calculationOrdered By: Bianka oGnzalez on 04-17-2025 INR Coag (Bld) [Relative time] 2.7 {INR} [facility] MCV (mean corpuscular volume ) determinationOrdered By: Bianka Gonzalez on 04-17-2025 MCV (RBC) [Entitic vol] 97.0 fL High 80-94 [facility] Mean corpuscular hemoglobin (MCH) determinationOrdered By: Bianka Gonzalez on 04-17-2025 MCH (RBC) [Entitic mass] 29.2 pg 27.0-32.0 [facility] Mean corpuscular hemoglobin concentration (MCHC) determinationOrdered By: Bianka Gonzalez on 04-17-2025 MCHC (RBC) [Mass/Vol] 30.1 g/dL Low 32-36 [facility] Mean platelet volume determi nationOrdered By: Bianka Gonzalez on 04-17-2025 Platelet mean volume (Bld) [Entitic vol] 10.0 fL 6.2-12.0 [facility] Platelet countOrdered By: Josr Gonzalez on 04-17-2025 Platelets (Bld) [#/Vol] 161 10*3/uL 150-450 [facility] Potassium measurement (mass/ volume)Ordered By: Bianka Gonzalez on 04-17-2025 Potassium (Unsp spec) [Mass/Vol] 4.9 mmol/L 3.3-5.1 [facility] Prothrombin Time w/INRon INR Coag (PPP) [Relative time] 2.7 {INR} Normal [facility] Comment on above: Order Comment: 213 Performed By: #### L 500.2500, L300.3900, L100.0500 #### [facility] [address] [place], [address] PT Coag (PPP) [Time] 29.7 s High 11.7-14.9 [facility] Comment on above: Order Comment: 213 Performed By: #### L 500.2500, L300.3900, L100.0500 #### [facility] [address] [place], [address] Prothrombin timeOrdered By: Bianka Gonzalez on 04-17-2025 PT Coag (PPP) [Time] 29.7 s High 11.7-14.9 [facility] RBC Auto (Bld) [#/Vol]Ordere d By: Bianka Gonzalez on 04-17-2025 RBC (Bld) [#/Vol] 3.63 10*6/uL Low 4.6-6.2 [facility] Serum creatinine measurement (mass/volume)Ordered By: Bianka Gonzalez on 04-17-2025 Creatinine [Mass/Vol] 2.45 mg/dL High 0.70-1.20 [facility] Serum glucose measurement (m ass/volume)Ordered By: Bianka Gonzalez on 04-17-2025 Glucose [Mass/Vol] 137 mg/dL High 70-99 [facility] Serum or plasma calcium cornelius urement (mass/volume)Ordered By: Bianka Gonzalez on 04-17-2025 Calcium [Mass/Vol] 8.2 mg/dL 7.6-11.0 [facility] Serum or plasma urea nitroge n measurement (mass/volume)Ordered By: Bianka Gonzalez on 04-17-2025 Urea nitrogen [Mass/Vol] 52 mg/dL High 4-19 [facility] Sodium levelOrdered By: Nestor Gonzalez on 04-17-2025 Sodium [Moles/Vol] 139 mmol/L 133-145 [facility] White blood cell (WBC) count Ordered By: Bianka Gonzalez on 04-17-2025 WBC (Bld) [#/Vol] 7.2 10*3/uL 4.4-11.0 [facility] CNPNon [facility] CAL MITCHELL ([id number]) 1945 M Date Time Provider Department 04/15/25 [place] During your visit today, we recorded the following information about you: Twin ColeStuart 04/15/2025 9:12 AM Signed [facility] Ambulatory Pharmacy Anticoagulation Clinic Anticoagulation Episode Summary Anticoagulation Care Providers Provider Role Specialty Phone number Guanakito Reno MD [facility] [phone] Cal Mitchell is a 79 year old [...] missed any doses of warfarin. Twin Cole [facility] Clinical Pharmacist, Pharmacy Anticoagulation Clinic Pharmacy Anticoagulation Clinic Pager: [phone]. Twin Cole RPh 04/29/2025 8:54 AM Signed [...] an injectable anticoagulant - No Stuart Hayes Kim [facility] 05/06/2025 10:59 AM Signed Spoke to patient's daughter. Patient has moved to [facility]. His INRs are monitored there. Will discharge patient from [facility] Daniel ([facility]ley Granados 05/06/2025 2:31 PM Signed Pharmacy Anticoagulation Clinic Discharge completed at this time. Patient may be re-referred, if deemed appropriate. Ashley Hameed CPhT ([facility]) Pharmacy Anticoagulation Clinic Allergies As of Date: [...] guidelines link (more content not included)... Normal [facility] 04-14-2025 [facility] CAL MITCHELL ([id number]) 1945 M Date Time Provider Department 04/14/25 [facility] During your visit today, we recorded the [...] BENJIE - Fully Assessed Reason for Visit: Patient Question [9257] Prescriptions as of 04/14/2025 - warfarin (COUMADIN) [...] Insulin: No - Lancets (ONE TOUCH DELICA) [facility] lancets Test blood sugar(s) one time daily. [...] stenosis of unspecified carotid a*10/25/2013 03/26/2024 Frequency [[id number]] 02/11/2016 03/26/2024 BPH (benign prostatic hypertrophy) with [...] with stage 3 chroni*01/29/2020 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 pharmacist (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 [Z79.*02/04/2020 Dementia, vascular, [...] 05/03/2024 Bilateral (more content not included)... Normal [facility] CNPNon 03-28-2025 [facility] -------- CAL MITCHELL ([id number]) 1945 Date Time Provider Department 03/28/25 [place]UA[place]KITO R[place] [facility] During your visit today, we recorded the following information about you: Niels Rodriges RN 03/28/2025 1:06 PM Signed Faxed recent ov notes to [facility] per daughter, January request. . January reports she talked to [facility] about patient going to live there and [facility] instructed her to have pcp office send an H AND P to them for review. Allergies As of Date: 03/28/2025 (No Known Allergies) Date Reviewed: 03/05/2025 Reviewed by: Jack Holcomb, BENJIE - Fully Assessed Reason for Visit: Faxed to [facility] [Other] Prescriptions as of 03/28/2025 - atorvastatin [...] Insulin: No - Lancets (ONE TOUCH DELICA) [facility] lancets Test blood sugar(s) one time daily. [...] stenosis of unspecified carotid a*10/25/2013 03/26/2024 Frequency [[id number]] 02/11/2016 03/26/2024 BPH (benign prostatic hypertrophy) with [...] Hypertensive kidney disease with stage 3 chroni*01/29/2020 [facility] (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 [Z79.*02/04/2020 Dementia, vascular, [...] Encounter Status:Closed by Niels RODRIGES on 03/28/25 [facility] CNPNon 03-24-2025 CNPN Telephone (PHAMTE) -------- CAL MITCHELL ([id number]) 1945 Date Time Provider Department 03/24/25 ALEJANDRO MOLINA [facility] During your visit today, we recorded the following information about you: Alejandro Molina bobbi 03/24/2025 10:57 AM Signed [facility] Ambulatory Pharmacy Anticoagulation Clinic Anticoagulation Episode Summary Anticoagulation Care Providers Provider Role Specialty Phone number Guanakito Reno MD [facility] [phone] Cal Hageroll is a 79 year old year old [...] instructed to call [facility] at [phone] with any questions or concerns. Alejandro Molina [facility] Clinical Pharmacist, Pharmacy Anticoagulation Clinic Pharmacy Anticoagulation Clinic Pager: [phone] Alejandro Molina [facility] 04/07/2025 3:31 PM Signed Patient was due [...] or as soon as possible. Twin Cole [facility] Allergies As of Date: 03/24/2025 (No Known Allergies) Date Reviewed: 03/05/2025 Reviewed by: Jack Holcomb, RN - Fully Assessed Reason for Visit: [...] Insulin: No - Lancets (ONE TOUCH DELICA) [facility] lancets Test blood sugar(s) one time daily. [...] diabetes mellitu (more content not included)... Normal [facility] Inital Evaluation (1) - PTon 03-24-2025 Inital Evaluation (1) - PT [facility] Physical Therapy [facility] [address] [place] [address] / REHABILITATION SERVICES INITIAL EVALUATION MR#: [id number] Acct: [id number] Name: CAL MITCHELL Rep #: [id number] : 1945 79 From: Rosa Gates DPT Referring Dr.: Dr. Josafat García MD Status: R EG RCR Insurance: [facility] [id number] SELF PAY INSURANCE Patient's Visit Information Visit [...] PROM due to guarding. Strength: Scap: poor, production grip: fair, no other motions tested due to [...] to be FAXED BACK to us at [phone] for Medicare purposes. For Medicare only, by signing this I certify the plan of care. Please let me know if there are questions or concerns regarding this plan of care. Physician Signature: Date: ____ 03/24/25 1256 CC: Dr. Josafat García MD; Dr. Guanakito Reno MD E (more content not included)... Normal [facility] Orthopedic Visit Reporton Orthopedic Visit Report [facility] [address] [place] [address] OFFICE VISIT Date of Service: 03/07/25 MR#: [id number] Acct: [id number] Name: CAL MITCHELL Rep #: [id number] : 1945 Provider: Dr. Josafat murcia MD Age/Sex: 79/M Location[place] [facility] Status: Signed Intake Vital Signs 03/06/25 16:19 [...] you fallen in the past year?: Yes [facility] Medical History (Updated 03/07/25 @ 13:23 by [...] is here today with his son and [id number]. Usually ambulates with a walker or a cane. Had a fall. Was mainly complaining about pain to the upper extremity was seen in a peripheral hospital referred here given a sling they found approximately wrist fracture on the right side. The patient does not speak very much but he converses overall well he is [id number]-kilejowq fairly stoic. Supplemental Info Proximal humerus fracture [...] a r (more content not included)... Normal [facility] CNOVon 03-06-2025 CNOV Office Visit (FAMPWS ) -------- CAL MITCHELL ([id number]) 1945 M Date Time Provider Department 03/06/25 3:20 PM CAROLINA LANDEROS During your visit today, we recorded the following information about you: Pulse Blood pressure 68/minute 124/58 Carolina Landeros, COURT OPERATIONS CLERK.[employer] 03/06/2025 4:30 PM Signed This is a [...] and 9-10/10 with movement. - Currently taking Boelus for pain management. - Denies pain elsewhere [...] 250.00. Insulin: No Lancets (ONE TOUCH DELICA) [facility] lancets Test blood sugar(s) one time daily. [...] SYSTEMS Mu (more content not included)... Normal [facility] ED NOTEon 03-06-2025 ED NOTE HNO ID: [id number] Author: JACK HOLCOMB RN Service: ? Author Type: Registered Nurse Type: ED Notes Filed: 03/06/2025 00:19 Note Text: Provided meds. Placed in sling. Assisted to bathroom and back Normal [facility] ED PROV NOTEon 03-06-2025 ED PROV NOTE HNO ID: [id number] Author: KEDAR HERNANDEZ MD Service: Emergency Medicine [...] reviewed and are negative. Physical Exam Vitals [03/05/25 2208] BP Pulse Temp Temp src Resp SpO2 [...] (more content not included)... Normal [facility] CT BRAIN WO IVCONon 03-05-20 CT BRAIN WO IVCON * * *Final Report* * * DATE OF EXAM: Mar 05 2025 11:55PM [facility] 0504 - CT BRAIN WO [...] wall calcifications, including in the left-sided carotid. Image Consultant (topogram) images: Known (in correlation to earlier [...] vertebrae with counting from the craniocervical junction. Lead Coater: MAC Transcribe Date/Time: Mar 06 2025 12:48A Dictated by : CAMELIA GROVES MD This examination was interpreted and the report reviewed and electronically signed by: CAMELIA GROVES MD on Mar 06 2025 1:08AM EST [id number] Normal [facility] CT CERVICAL SPINE WO IVCONon 03-05-2025 CT CERVICAL SPINE WO IVCON * * *Final Report* * * DATE OF EXAM: Mar 05 2025 11:55PM [facility] 0505 - CT CERVICAL SPINE [...] wall calcifications, including in the left-sided carotid. Image Consultant (topogram) images: Known (in correlation to earlier [...] vertebrae with counting from the craniocervical junction. Lead Coater: [facility] Transcribe Date/Time: Mar 06 2025 12:48A Dictated by : CAMELIA GROVES MD This examination was interpreted and the report reviewed and electronically signed by: CAMELIA GROVES MD on Mar 06 2025 1:08AM EST [id number] Normal [facility] ED NOTEon 03-05-2025 ED NOTE HNO ID: [id number] Author: JACK HOLCOMB, BENJIE Service: ? Author Type: Registered Nurse Type: ED Notes Filed: 03/05/2025 23:05 Note Text: Assisted to bathroom and back Normal [facility] ED NOTE HNO ID: [id number] Author: JACK HOLCOMB, BENJIE Service: ? Author Type: Registered Nurse Type: ED Notes Filed: 03/05/2025 22:10 Note Text: Pt c/o fall with right shoulder injury when wheel chair turned over. Denies neck and head injury. [place], warm, dry. No apparent distress. Alert and oriented. Normal [facility] XR HUMERUS 2V AP/LAT RTon XR [...] separation. No dislocation of the glenohumeral joint. Lead Coater: [facility] Transcribe Date/Time: Mar 06 2025 12:37A Dictated by : LINNEA DIAS MD This examination was interpreted and the report reviewed and electronically signed by: LINNEA DIAS MD on Mar 06 2025 12:40AM EST [id number] Normal [facility] XR SHLDR >/=3V AP/JR AP/OTH R [...] separation. No dislocation of the glenohumeral joint. Lead Coater: MAC Transcribe Date/Time: Mar 06 2025 12:37A Dictated by : LINNEA DIAS MD This examination was interpreted and the report reviewed and electronically signed by: LINNEA DIAS MD on Mar 06 2025 12:40AM EST [id number] [facility] 02-20-2025 CNPN Telephone (PHAMTE) -------- CAL MITCHELL ([id number]) 1945 M Date Time Provider Department 02/20/25 JIMMY CARRIZALES During your visit today, we recorded the following information about you: Jimmy Carrizales, [facility] 02/20/2025 9:00 AM Signed [facility] Ambulatory Pharmacy Anticoagulation Clinic Anticoagulation Episode Summary Anticoagulation Care Providers Provider Role Specialty Phone number Guanakito Reno MD [facility] [phone] Cal Mitchell is a 79 year old [...] Allergies Indication for Warfarin: 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 pharmacist (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 Paroxysmal atrial fibrillation (hcc) Anticoagulation Episode Summary Current INR goal: 2.0-3.0 Assessment: INR result of 1.8 is SUBtherapeutic due to: unknown cause - did not speak to patient Plan: Current Warfarin Dosing As of 02/20/2025 Full warfarin instructions: 5/8: 7.5 mg; Otherwise 5 mg every day [...] missed any doses of warfarin. Jimmy Carrizales [facility] Clinical Pharmacist, Pharmacy Anticoagulation Clinic Pharmacy Anticoagulation Clinic Pager: [phone]. Kelsey Twin [facility] 03/06/2025 12:38 PM Signed Patient was [...] on an injectable anticoagulant - No [place] [facility] Jimmy Carrizales [facility] 03/13/2025 7:40 AM Signed Cal Mitchell was sent [employer] message and reminded to test INR today or as soon as possible. Jimmy Carrizales [facility] Alejandro Molina [facility] 03/20/2025 3:45 PM Signed No INR has been received or is in process at this time, will add to discharge list and start the discharge process at this time. Alejandro Molina [facility] Daniel ([employer] Developer)Ashley 03/24/2025 10:52 AM Signed No return call from patient. Letter sent. FINAL ATTEMPT letter sent at this time. If no response from patient within 3 weeks of letter being sent, patient will be discharged from PAC at that time. Will also route to referring MD as FYI and to see if office can assist in reaching patient. Ashley Sanchez CPhT (Auto Self Service Station Attendant) Pharmacy Anticoagulation Clinic Guanakito Reno MD 03/24/2025 [...] Fu [148] Cmt: Home INR Primary Visit Diagnosis:FPC (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 [Z79.01] Other Visit [...] mg table (more content not included)... Normal [facility] CNPNon 01-31-2025 CNPN Telephone (PHAMTE) -------- CAL MITCHELL ([id number]) 1945 M Date Time Provider Department 01/31/25 KAMRAN AYON During your visit today, we recorded the following information about you: Kamran Ayon RPh 01/31/2025 12:55 PM Signed [facility] Ambulatory Pharmacy Anticoagulation Clinic Anticoagulation Episode Summary Anticoagulation Care Providers Provider Role Specialty Phone number Guanakito Reno MD [facility] Family Medicine [phone] Cal Lua Paula is a 79 year [...] 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: FPC (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 Paroxysmal atrial fibrillation [...] missed any doses of warfarin. Kamran Ayon bobbi Clinical Pharmacist, Pharmacy Anticoagulation Clinic Pharmacy Anticoagulation Clinic Pager: [phone]. Kamran Ayon RPh 02/14/2025 9:53 AM Signed [...] Test Result Primary Visit Diagnosis: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 pharmacist (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 [Z79.01] Other Visit [...] (NITROQUICK) 0.4 (more content not included)... Normal [facility] CBC W Auto Differential pane l (Bld)on 01-21-2025 Basophils (Bld) [#/Vol] 0.07 10*3/uL Normal <0.11 [facility] Comment on above: Order Comment: Speci men Type: BLOOD SPECIMENOrdering Facility: [facility] Address: [address] [place] [address] Performed By: #### 5 7021-8 ####[facility] LABCLIA [id number] [place] [address] [place] Basophils/100 WBC (Bld) 0.9 % Normal [facility] Comment on above: Order Comment: Speci men Type: BLOOD SPECIMENOrdering Facility: [facility] Address: [address] [place] [address] Performed By: #### 5 7021-8 ####[facility] LABCLIA [id number] [place] [address] [place] Differential cell count method Nom (Bld) Auto Normal [facility] Comment on above: Order Comment: Speci men Type: BLOOD SPECIMENOrdering Facility: [facility] Address: [address] [place] [address] Performed By: #### 5 7021-8 ####[facility] LABCLIA [id number] [place] [address] [place] Eosinophils (Bld) [#/Vol] 0.25 10*3/uL Normal <0.46 [facility] Comment on above: Order Comment: Speci men Type: BLOOD SPECIMENOrdering Facility: [facility] Address: [address] [place] [address] Performed By: #### 5 7021-8 ####[facility] LABCLIA [id number] [facility] [place] [address] [place] Eosinophils/100 WBC (Bld) 3.3 % Normal [facility] Comment on above: Order Comment: Speci men Type: BLOOD SPECIMENOrdering Facility: [facility] Address: [address] [place] [address] Performed By: #### 5 7021-8 ####[facility] LABCLIA [id number] [facility] [address], [place] [address] [place] Erythrocyte distribution width (RBC) [Ratio] 14.8 % Normal 11.5-15.0 [facility] Comment on above: Order Comment: Speci men Type: BLOOD SPECIMENOrdering Facility: [facility] Address: [address] [place] [address] Performed By: #### 5 7021-8 ####[facility] LABCLIA [id number] [facility] [address] [place] Hematocrit (Bld) [Volume fraction] 41.2 % Normal 39.0-51.0 [facility] Comment on above: Order Comment: Speci men Type: BLOOD SPECIMENOrdering Facility: [facility] Address: [address] [place] [address] Performed By: #### 5 7021-8 ####[facility] LABCLIA [id number] [facility] [place] [id number] [place] Hemoglobin (Bld) [Mass/Vol] 12.5 g/dL Low 13.0-17.0 [facility] Comment on above: Order Comment: Speci men Type: BLOOD SPECIMENOrdering Facility: [facility] Address: [address] [place] [address] Performed By: #### 5 7021-8 ####[facility] LABCLIA [id number] [address], [place] [address] [place] Immature granulocytes (Bld) [#/Vol] 10*3/uL Normal <0.10 [facility] Comment on above: Order Comment: Speci men Type: BLOOD SPECIMENOrdering Facility: [facility] Address: [address] [place] [address] Performed By: #### 5 7021-8 ####[facility] LABCLIA [id number] [address], [address] [place] Immature granulocytes/100 WBC (Bld) 0.3 % Normal [facility] Comment on above: Order Comment: Speci men Type: BLOOD SPECIMENOrdering Facility: [facility] Address: [address] [place] [address] Performed By: #### 5 7021-8 ####[facility] LABCLIA [id number] [address], [place] [address] [place] Lymphocytes (Bld) [#/Vol] 1.28 10*3/uL Normal 1.00-4.00 [facility] Comment on above: Order Comment: Speci men Type: BLOOD SPECIMENOrdering Facility: [facility] Address: [address] [place] [address] Performed By: #### 5 7021-8 ####[facility] LABCLIA [id number] [address], [facility] [place] Lymphocytes/100 WBC (Bld) 17.1 % Normal [facility] Comment on above: Order Comment: Speci men Type: BLOOD SPECIMENOrdering Facility: [facility] Address: [address] [place] [address] Performed By: #### 5 7021-8 ####[facility] LABCLIA [id number] [address] [place] [address] [place] MCH (RBC) [Entitic mass] 29.3 pg Normal 26.0-34.0 [facility] Comment on above: Order Comment: Speci men Type: BLOOD SPECIMENOrdering Facility: [facility] Address: [address] [place] [address] Performed By: #### 5 7021-8 ####[facility] LABCLIA [id number] [place] [address] [place] MCHC (RBC) [Mass/Vol] 30.3 g/dL Low 30.5-36.0 [facility] Comment on above: Order Comment: Speci men Type: BLOOD SPECIMENOrdering Facility: [facility] Address: [address] [place] [address] Performed By: #### 5 7021-8 ####[facility] LABCLIA [id number] [address] [place] MCV (RBC) [Entitic vol] 96.7 fL Normal 80.0-100.0 [facility] Comment on above: Order Comment: Speci men Type: BLOOD SPECIMENOrdering Facility: [facility] Address: [address] [place] [address] Performed By: #### 5 7021-8 ####[facility] LABCLIA [id number] [address] [place] Monocytes (Bld) [#/Vol] 0.61 10*3/uL Normal <0.87 [facility] Comment on above: Order Comment: Speci men Type: BLOOD SPECIMENOrdering Facility: [facility] Address: [address] [place] [address] Performed By: #### 5 7021-8 ####[facility] LABCLIA [id number] [address] [place] Monocytes/100 WBC (Bld) 8.2 % Normal [facility] Comment on above: Order Comment: Speci men Type: BLOOD SPECIMENOrdering Facility: [facility] Address: [address] [place] [address] Performed By: #### 5 7021-8 ####[facility] LABCLIA [id number] [place] [address] [place] Neutrophils (Bld) [#/Vol] 5.25 10*3/uL Normal 1.45-7.50 [facility] Comment on above: Order Comment: Speci men Type: BLOOD SPECIMENOrdering Facility: [facility] Address: [address] [place] [address] Performed By: #### 5 7021-8 ####[facility] LABCLIA [id number] [place] [address] [place] Neutrophils/100 WBC (Bld) 70.2 % Normal [facility] Comment on above: Order Comment: Speci men Type: BLOOD SPECIMENOrdering Facility: [facility] Address: [address] [place] [address] Performed By: #### 5 7021-8 ####[facility] LABCLIA [id number] [place] [address] [place] Nucleated RBC (Bld) [#/Vol] 10*3/uL Normal <0.01 [facility] Comment on above: Order Comment: Speci men Type: BLOOD SPECIMENOrdering Facility: [facility] Address: [address] [place] [address] Performed By: #### 5 7021-8 ####[facility] LABCLIA [id number] [place] [address] [place] Nucleated RBC/100 WBC (Bld) [Ratio] 0.0 /100 WBC Normal [facility] Comment on above: Order Comment: Speci men Type: BLOOD SPECIMENOrdering Facility: [facility] Address: [address] [place] [address] Performed By: #### 5 7021-8 ####[facility] LABCLIA [id number] [address] [address] [place] Platelet mean volume (Bld) [Entitic vol] 10.3 fL Normal 9.0-12.7 [facility] Comment on above: Order Comment: Speci men Type: BLOOD SPECIMENOrdering Facility: [facility] Address: [address] [place] [address] Performed By: #### 5 7021-8 ####[facility] LABIA [id number] [place] [id number] [place] Platelets (Bld) [#/Vol] 198 10*3/uL Normal 150-400 [facility] Comment on above: Order Comment: Speci men Type: BLOOD SPECIMENOrdering Facility: [facility] Address: [address] [place] [address] Performed By: #### 5 7021-8 ####[facility] LABIA [id number] [place] [address] [place] RBC (Bld) [#/Vol] 4.26 10*6/uL Normal 4.20-6.00 [facility] Comment on above: Order Comment: Speci men Type: BLOOD SPECIMENOrdering Facility: [facility] Address: [address] [place] [address] Performed By: #### 5 7021-8 ####[facility] LABIA [id number] [place] [id number] [place] WBC (Bld) [#/Vol] 7.48 10*3/uL Normal 3.70-11.00 [facility] Comment on above: Order Comment: Speci men Type: BLOOD SPECIMENOrdering Facility: [facility] Address: [address] [place] [address] Performed By: #### 5 7021-8 ####[facility] LABIA [id number] [place] [id number] [place] CNOVon 01-21-2025 CNOV Office Visit (FAMPWS ) -------- CAL MITCHELL ([id number]) 1945 M Date Time Provider Department 01/21/25 3:40 PM CAROLINA LANDEROS During your visit today, we recorded the following information about you: Temperature Pulse Blood pressure Weight 97.6 degrees 59/minute 122/60 117 kg Carolina Landeros APRN.[employer] 01/21/2025 4:11 PM Signed This is a [...] taking lisinopril Monitors bp at home: Yes. [employer] checks it, ok there Denies side effects: [...] 250.00. Insulin: No Lancets (ONE TOUCH DELICA) [facility] lancets Test blood sugar(s) one time daily. [...] (20.0 ttl (more content not included)... Normal [facility] Comprehensive metabolic 2000 panelon 01-21-2025 Albumin [Mass/Vol] 4.1 g/dL Normal 3.9-4.9 [facility] Comment on above: Order Comment: Speci men Type: BLOOD SPECIMENOrdering Facility: [facility] Address: [address] [place] [address] Performed By: #### L IPNF, , 2132-06, ####[facility] LABCLIA [id number] [place] [address] [place] ALP [Catalytic activity/Vol] 153 U/L High 38-113 [facility] Comment on above: Order Comment: Speci men Type: BLOOD SPECIMENOrdering Facility: [facility] Address: [address] [place] [address] Performed By: #### L IPNF, , 2132-06, ####[facility] LABCLIA [id number] [place] [address] [place] ALT [Catalytic activity/Vol] 19 U/L Normal 10-54 [facility] Comment on above: Order Comment: Speci men Type: BLOOD SPECIMENOrdering Facility: [facility] Address: [address] [place] [address] Performed By: #### L IPNF, 47343-6, 2132-06, 69258-1 ####[facility] LABCLIA [id number] [place] [address] [place] Anion gap [Moles/Vol] 15 mmol/L Normal 8-15 [facility] Comment on above: Order Comment: Speci men Type: BLOOD SPECIMENOrdering Facility: [facility] Address: [address] [place] [address] Performed By: #### L IPNF, , 2132-06, 57984-7 ####[facility] LABCLIA [id number] [place] [address] [place] AST [Catalytic activity/Vol] 23 U/L Normal 14-40 [facility] Comment on above: Order Comment: Speci men Type: BLOOD SPECIMENOrdering Facility: [facility] Address: [address] [place] [address] Performed By: #### L IPNF, , 2132-06, 06410-6 ####[facility] LABCLIA [id number] [place] [address] [place] Bilirubin [Mass/Vol] 0.6 mg/dL Normal 0.2-1.3 [facility] Comment on above: Order Comment: Speci men Type: BLOOD SPECIMENOrdering Facility: [facility] Address: [address] [place] [address] Performed By: #### L IPNF, , 2132-06, 62835-9 ####[facility] LABCLIA [id number] [place] [address] [place] Calcium [Mass/Vol] 8.8 mg/dL Normal 8.5-10.2 [facility] Comment on above: Order Comment: Speci men Type: BLOOD SPECIMENOrdering Facility: [facility] Address: [address] [place], [place] [address] Performed By: #### L IPNF, 77025-6, 2132-06, 97002-2 ####[facility] LABCLIA [id number] [place] [place] [id number] [place] Chloride [Moles/Vol] 106 mmol/L Normal 98-107 [facility] Comment on above: Order Comment: Speci men Type: BLOOD SPECIMENOrdering Facility: [facility] Address: [address] [place] [address] Performed By: #### L IPNF, , 2132-06, 58633-6 ####[facility] LABCLIA [id number] [place] [address] [place] CO2 [Moles/Vol] 21 mmol/L Low 22-30 [facility] Comment on above: Order Comment: Speci men Type: BLOOD SPECIMENOrdering Facility: [facility] Address: [address] [place] [address] Performed By: #### L IPNF, , 2132-06, 94728-7 ####[facility] LABCLIA [id number] [place] [address] [place] Creatinine [Mass/Vol] 2.34 mg/dL High 0.73-1.22 [facility] Comment on above: Order Comment: Speci men Type: BLOOD SPECIMENOrdering Facility: [facility] Address: [address] [place] [address] Performed By: #### L IPNF, , 2132-06, 16078-5 ####[facility] LABCLIA [id number] [place] [address] [place] Creatinine and Glomerular filtration rate.predicted panel (S/P/Bld) 27 mL/min/1.73m??? Low >=60 [facility] Comment on above: Order Comment: Speci men Type: BLOOD SPECIMENOrdering Facility: [facility] Address: [address] [place] [address] Result Comment: Lina mated Glomerular Filtration Rate [...] actual GFR. Performed By: #### L IPNF, , 2132-06, ####[facility] LABCLIA [id number] [address] [address] [place] Glucose [Mass/Vol] 122 mg/dL High 74-99 [facility] Comment on above: Order Comment: Specnick shultz Type: BLOOD SPECIMENOrdering Facility: [facility] Address: [address] [place] [address] Result Comment: The [place] Diabetes Association (ADA) provides guidance for cutoff [...] Standards of Medical Care in Diabetes 2016, [place] Diabetes Association. Diabetes Care. 2016.39(Suppl 1). Performed By: #### L IPNF, , 2132-06, ####[facility] LABIA [id number] [address] [address] [place] Potassium [Moles/Vol] 4.3 mmol/L Normal 3.7-5.1 [facility] Comment on above: Order Comment: Speci men Type: BLOOD SPECIMENOrdering Facility: [facility] Address: [address] [place] [address] Performed By: #### L IPNF, 54089-2, 2132-06, 30691-8 ####[facility] LABCLIA [id number] [address] [address] [place] Protein [Mass/Vol] 7.2 g/dL Normal 6.3-8.0 [facility] Comment on above: Order Comment: Speci men Type: BLOOD SPECIMENOrdering Facility: [facility] Address: [address] [place] [address] Performed By: #### L IPNF, , 2132-06, 09747-5 ####[facility] LABCLIA [id number] [address] [address] [place] Sodium [Moles/Vol] 142 mmol/L Normal 136-144 [facility] Comment on above: Order Comment: Speci men Type: BLOOD SPECIMENOrdering Facility: [facility] Address: [address] [place] [address] Performed By: #### L IPNF, , 2132-06, 76230-2 ####[facility] LABIA [id number] [address] [address] [place] Urea nitrogen [Mass/Vol] 29 mg/dL High 9-24 [facility] Comment on above: Order Comment: Speci men Type: BLOOD SPECIMENOrdering Facility: [facility] Address: [address] [place] [address] Performed By: #### L IPNF, , 2132-06, 57646-0 ####[facility] LABIA [id number] [address] [address] [place] HbA1c (Bld)on 01-21-2025 Average glucose Estimated from glycated hemoglobin (Bld) [Mass/Vol] 146 mg/dL Normal [facility] Comment on above: Order Comment: Speci men Type: BLOOD SPECIMENOrdering Facility: [facility] Address: [address] [place], [place] [address] Result Comment: eAG: (Estimated average glucose) is a calculated value from HgbA1c and is construction representative of the average blood glucose level in the last 2-3 month period. Performed By: #### 5 5454-3 ####[facility] LABCLIA [id number] [place] [address], [place] [address] [place] HbA1c (Bld) [Mass fraction] 6.7 % High 4.3-5.6 [facility] Comment on above: Order Comment: Marcelle shultz Type: BLOOD SPECIMENOrdering Facility: [facility] Address: [address] [place] [address] Result Comment: [place] Diabetes Association guidelines indicate that patients with HgbA1c in the range 5.7-6.4% are at increased risk for development of diabetes, and intervention by lifestyle modification may be beneficial. HgbA1c greater or equal to 6.5% is considered diagnostic of diabetes. Performed By: #### 5 5454-3 ####[facility] LABIA [id number] [address], [facility]95 [place] LIPID PANEL, NONFASTINGon Cholesterol [Mass/Vol] 164 mg/dL Normal <200 [facility] Comment on above: Order Comment: Marcelle shultz Type: BLOOD SPECIMENOrdering Facility: [facility] Address: [address] [place] [address] Result Comment: <200 mg/dL, Desirable 200-239 mg/dL, Borderline high >239 mg/dL, High Performed By: #### L IPNF, 60066-4, 2132-9, 60122-7 ####[facility] LABIA [id number] [place] [id number] [place] HDL CHOLESTEROL, NF 42 mg/dL Normal >39 [facility] Comment on above: Order Comment: Marcelle shultz Type: BLOOD SPECIMENOrdering Facility: [facility] Address: [address] [place] [address] Result Comment: 40-5 9 mg/dL, Acceptable >59 mg/dL, High: Negative risk factor for coronary heart disease <40 mg/dL, Low: Positive risk factor for coronary heart disease Performed By: #### L IPNF, , 2132-06, ####[facility] LABCLIA [id number] [place] [address] [place] LDL CHOLESTEROL, NF 96 mg/dL Normal <100 [facility] Comment on above: Order Comment: Marcelle men Type: BLOOD SPECIMENOrdering Facility: [facility] Address: [address] [place] [address] Result Comment: <100 mg/dL, Optimal 100-129 mg/dL, Near optimal/above optimal 130-159 mg/dL, Borderline high 160-189 mg/dL, High >189 mg/dL, Very high Secondary prevention optimal LDL Cholesterol levels are recommended to be < 70 mg/dL Performed By: #### L WAYLON, , 2132-06, ####[facility] LABCLIA [id number] [address] [place] LDL/HDL RATIO, NF 2.29 mg/dL Normal <2.54 [facility] Comment on above: Order Comment: Marcelle shultz Type: BLOOD SPECIMENOrdering Facility: [facility] Address: [address] [place] [address] Result Comment: Refe rence: 1. National Cholesterol Education Program ATP III Guideline At-A-Glance Quick Desk Reference: National Heart, Lung, and Blood [place]. National Institutes of Health. 2001: NIH Publication No. 01-3305. 2. An International Atherosclerosis Society position paper: global recommendations for the management of dyslipidemia: executive summary, Atherosclerosis. 2014: 232(2):410-413. Performed By: #### L IPNF, , 2132-06, ####[facility] LABCLIA [id number] [address] [place] NON HDL CHOL, NF 122 mg/dL Normal <130 [facility] Comment on above: Order Comment: Marcelle men Type: BLOOD SPECIMENOrdering Facility: [facility] Address: [address] [place] [address] Result Comment: <130 mg/dL, Optimal 130-159 mg/dL, Near optimal/above optimal 160-189 mg/dL, Borderline high 190-219 mg/dL, High >219 mg/dL, Very high Secondary prevention optimal non HDL Cholesterol levels are recommended to be <100 mg/dL Performed By: #### L IPNF, , 2132-06, ####[facility] LABCLIA [id number] [place] [id number] [place] T CHOL/HDL RATIO NF 3.90 mg/dL Normal <5.10 [facility] Comment on above: Order Comment: Speci men Type: BLOOD SPECIMENOrdering Facility: [facility] Address: [address] [place] [address] Performed By: #### L IPNF, , 2132-06, ####[facility] LABCLIA [id number] [place] [address] [place] TRIGLYCERIDES, NF 129 mg/dL Normal <150 [facility] Comment on above: Order Comment: Speci men Type: BLOOD SPECIMENOrdering Facility: [facility] Address: [address] [place] [address] Result Comment: <150 mg/dL, Normal 150-199 mg/dL, Borderline high 200-499 mg/dL, High >499 mg/dL, Very high Performed By: #### L IPNF, , 2132-06, ####[facility] LABCLIA [id number] [address] [address] [place] VLDL CHOLESTEROL, NF 26 mg/dL Normal <30 [facility] Comment on above: Order Comment: Speci men Type: BLOOD SPECIMENOrdering Facility: [facility] Address: [address] [place] [address] Performed By: #### L IPNF, , 2132-06, ####[facility] LABCLIA [id number] [place] [id number] [place] Magnesium [facility] Magnesium [Mass/Vol] 2.3 mg/dL Normal 1.7-2.3 [facility] Comment on above: Order Comment: Speci men Type: BLOOD SPECIMENOrdering Facility: [facility] Address: [address] [place] [address] Performed By: #### L IPNF, , 2132-06, ####[facility] LABCLIA [id number] [place] [address] [place] Vit B12 [facility] 025 Cobalamin (Vitamin B12) [Mass/Vol] 385 pg/mL Normal 232-1245 [facility] Comment on above: Order Comment: Marcelle shultz Type: BLOOD SPECIMENOrdering Facility: [facility] Address: [address] [place] [address] Performed By: #### L IPNF, , 2132-06, ####[facility] LABCLIA [id number] [address] [place] Molly 01-08-2025 CNPN Telephone (BRIAN) -------- CAL MITCHELL ([id number]) 1945 M Date Time Provider Department 01/08/25 RUTHIE CUEVAS During your visit today, we recorded the following information about you: Ruthie Cuevas RPh 01/08/2025 9:14 AM Signed [facility] Ambulatory Pharmacy Anticoagulation Clinic Anticoagulation Episode Summary Anticoagulation Care Providers Provider Role Specialty Phone number Guanakito Reno MD [facility] [phone] Cal Mitchell is a 79 year old [...] Allergies Indication for Warfarin: 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 pharmacist (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 Paroxysmal atrial fibrillation [...] missed any doses of warfarin. Ruthie Cuevas [facility] Clinical Pharmacist, Pharmacy Anticoagulation Clinic Pharmacy Anticoagulation Clinic Pager: [phone]. Ruthie Cuevas RPh 01/29/2025 11:08 AM Addendum Cal Mitchell was called and reminded to test INR today or as soon as possible. LVMX for January. Ruthie Cuevas, PharmD Pharmacy Anticoagulation Clinic Allergies As of Date: 01/08/2025 (No Known Allergies) Date Reviewed: 08/06/2024 Reviewed by: Bi Cantu LPN - Fully Assessed Reason for Visit: Anticoagulation Follow Up [145] Cmt: Home INR result Primary Visit Diagnosis: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 pharmacist (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 [Z79.01] Other Visit [...] Insulin: No - Lancets (ONE TOUCH DELICA) [facility] lancets Test blood sugar(s) one time daily. Dx: 250.00. Insulin: No Problem List As Of Date 01/08/2025 (more content not included)... Normal [facility] CNPNon 12-30-2024 CNPN Telephone (PHAMTE) -------- CAL MITCHELL ([id number]) 1945 M Date Time Provider Department 12/30/24 [place] During your visit today, we recorded the following information about you: Twin Cole [facility] 12/30/2024 9:14 AM Signed [facility] Ambulatory Pharmacy Anticoagulation Clinic Anticoagulation Episode Summary Anticoagulation Care Providers Provider Role Specialty Phone number Guanakito Reno MD [facility] [phone] Cal Hageroll is a 79 year old year old [...] missed any doses of warfarin. Twin Cole [facility] Clinical Pharmacist, Pharmacy Anticoagulation Clinic Pharmacy Anticoagulation Clinic Pager: [phone]. Octavio ([employer])Ruben 12/30/2024 9:15 AM Signed De called regarding INR result for patient. Result has been addressed below, no further action needed. Ruben Cunningham, Auto Self Service Station Attendant (research and development specialist) Pharmacy Anticoagulation Clinic Jimmy Carrizales [facility] 01/07/2025 12:02 PM Signed Cal Mitchell was called, lvmx and reminded to test INR today or as soon as possible given that we left a VM last week also. Jimmy Carrizales [facility] Allergies As of Date: 12/30/2024 (No [...] hours as needed. - blood sugar diagnostic (TNG PharmaceuticalsTOUCH ULTRA TEST) test strip Test blood sugar(s) one times daily. Dx: 250.00. Insulin: No - Lancets (ONE TOUCH DELICA) [facility] lancets Test blood sugar(s (more content not included)... Normal [facility] CNPNon 12-11-2024 CNPN Telephone (PHAMTE) -------- CAL MITCHELL ([id number]) 1945 M Date Time Provider Department 12/11/24 JIMMY CARRIZALES During your visit today, we recorded the following information about you: Jimmy Carrizales, [facility] 12/11/2024 9:51 AM Signed [facility] Ambulatory Pharmacy Anticoagulation Clinic Anticoagulation Episode Summary Anticoagulation Care Providers Provider Role Specialty Phone number Guanakito Reno MD [facility] [phone] Cal Mitchell is a 79 year old [...] Allergies Indication for Warfarin: 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 pharmacist (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 Paroxysmal atrial fibrillation [...] missed any doses of warfarin. Jimmy Carrizales [facility] Clinical Pharmacist, Pharmacy Anticoagulation Clinic Pharmacy Anticoagulation Clinic Pager: [phone]. Ruthie Cuevas RPh 12/25/2024 11:14 AM Signed Patient was due [...] Home INR Primary Visit Diagnosis: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 pharmacist (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 [Z79.01] Other Visit [...] sugar grey (more content not included)... Normal [facility] Molly 11-26-2024 KOURTNEYN Telephone (PHAALE) -------- CAL MITCHELL ([id number]) 1945 M Date Time Provider Department 11/26/24 [place] During your visit today, we recorded the following information about you: Twin Cole, [facility] 11/26/2024 5:29 PM Signed [facility] Ambulatory Pharmacy Anticoagulation Clinic Anticoagulation Episode Summary Anticoagulation Care Providers Provider Role Specialty Phone number Guanakito Reno MD [facility] [phone] Cal Mitchell is a 79 year old [...] Pharmacy Anticoagulation Clinic Pharmacy Anticoagulation Clinic Pager: [phone]. Yamilka Heath RN 11/27/2024 8:43 AM Signed Chris Ruggiero left a VM regarding the patient's INR result on 11/26/2024. Noted result has been addressed below. BENJIE Cardenas Kim, RPh 12/10/2024 10:31 AM Signed Cal Mitchell was called and reminded to test INR today or as soon as possible. Left VM on January's number. Twin Cole RPh Allergies As of [...] Problem Lis (more content not included)... Normal [facility] 10-28-2024 [facility] Telephone (PHAMTE) -------- CAL MITCHELL ([id number]) 1945 M Date Time Provider Department 10/28/24 ALEJANDRO MOLINA During your visit today, we recorded the following information about you: Alejandro Molina RPh 10/28/2024 5:07 PM Signed [facility] Ambulatory Pharmacy Anticoagulation Clinic Anticoagulation Episode Summary Anticoagulation Care Providers Provider Role Specialty Phone number Guanakito Reno MD [facility] [phone] Cal Lua Paula is a 79 year [...] instructed to call Pharmaceutical Anticoagulation Clinic at [phone] with any questions or concerns. Alejandro Molina [facility] Clinical Pharmacist, Pharmacy Anticoagulation Clinic Pharmacy Anticoagulation Clinic Pager: [phone] Alejandro Molina [facility] 11/11/2024 4:42 PM Signed Patient was due to test INR today. Will continue to monitor for results. Will follow up in one week if no results received. Alejandro Molina RPh 11/18/2024 4:27 PM Signed Cal Mitchell was called and reminded to test INR today or as soon as possible. Alejandro Molina [facility] Twin Cole bobbi 11/25/2024 2:53 PM Signed Added to discharge list Daniel ([employer] Developer)Ashley 11/26/2024 2:43 PM Signed DISCHARGE No return call from patient. Letter sent. FINAL ATTEMPT letter sent at this time. If no response from patient within 4 weeks, patient will be discharged from PAC at that time. Will also route to referring MD as FYI and to see if office can assist in reaching patient. Ashley Sanchez CPhT (Auto Self Service Station Attendant) Pharmacy Anticoagulation Clinic Guanakito Reno MD 11/26/2024 [...] has since been discharged from the pharmacy antico clinic. They either need to be more [...] Elly and Gustavo. Gave them the pharmacy [facility] clinic phone number and they are going [...] understand things anymore. 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 CHANCE Ramirez ([employer] Developer), Ashley 11/26/2024 5:07 PM Signed PATIENT CALL Patient [...] received. PAC will await results. Ashley Sanchez ([facility] (more content not included)... Normal [facility] CNPNon 10-21-2024 CNPN Telephone (FAMPWS) -------- CAL MITCHELL ([id number]) 1945 M Date Time Provider Department 10/21/24 GUANAKITO RENO [facility] During your visit today, we recorded the [...] for Visit: Patient Update [1234] Patient Question [9557] Prescriptions as of 10/21/2024 - atorvastatin (LIPITOR) [...] hours as needed. - blood sugar diagnostic (TNG PharmaceuticalsTOUCH ULTRA TEST) test strip Test blood sugar(s) one times daily. Dx: 250.00. Insulin: No - Lancets (ONE TOUCH DELICA) [facility] lancets Test blood sugar(s) one time daily. [...] stenosis of unspecified carotid a*10/25/2013 03/26/2024 Frequency [OFA9314] 02/11/2016 03/26/2024 BPH (benign prostatic hypertrophy) with urinary*02/11/2016 Adhesive capsulitis of right shoulder [M75.01] 05/15/2018 Aortic stenosis [I35.0] 05/24/2018 CKD (chronic kidney disease) stage 3, GFR 30-59*05/24/2018 03/26/2024 Lung (more content not included)... Normal [facility] Molly 10-01-2024 KOURTNEYN Telephone ([facility]) -------- CAL MITCHELL ([id number]) 1945 M Date Time Provider Department 10/01/24 [place] During your visit today, we recorded the following information about you: Twin Cole [facility] 10/01/2024 9:42 AM Signed [facility] Ambulatory Pharmacy Anticoagulation Clinic Anticoagulation Episode Summary Anticoagulation Care Providers Provider Role Specialty Phone number Guanakito Reno MD [facility] [phone] Cal Mitchell is a 79 year old [...] Pharmacy Anticoagulation Clinic Pharmacy Anticoagulation Clinic Pager: [phone]. Twin Cole RPh 10/15/2024 12:10 PM Signed [...] anticoagulant - No Stuart Hayes Kim, RPh 10/22/2024 10:56 AM Signed Cal Mitchell was [...] tablet Dissolve (more content not included)... Normal [facility] 08-26-2024 [facility] Telephone (BRIAN) -------- CAL MITCHELL ([id number]) 1945 M Date Time Provider Department 08/26/24 ALEJANDRO MOLINA During your visit today, we recorded the following information about you: Alejandro Molina RPh 08/26/2024 6:35 AM Signed [facility] Ambulatory Pharmacy Anticoagulation Clinic Anticoagulation Episode Summary Anticoagulation Care Providers Provider Role Specialty Phone number Guanakito Reno MD [facility] [phone] Cal Mitchell is a 79 year old [...] warfarin instructions: 5 mg every day Sent [employer] message Advised patient to continue current weekly dose as noted above Next INR check due on 09/09/2024 Alejandro Molina [facility] Clinical Pharmacist, Pharmacy Anticoagulation Clinic Pharmacy Anticoagulation Clinic Pager: [phone]. Alejandro Molina [facility] 09/09/2024 4:38 PM Signed Patient was due to test INR today. Will continue to monitor for results. Will follow up in one week if no results received. Alejandro Molina [facility] 09/23/2024 2:35 PM Signed Cal Lua Paula was called and reminded to test INR today or as soon as possible. Alejandro Molina [facility] KelseyTwin [facility] 09/30/2024 12:31 PM Signed Added to discharge [...] Insulin: No - Lancets (ONE TOUCH DELICA) [facility] lancets Test blood sugar(s) one time daily. Dx: 250.00. Insulin: No Problem List As Of Date 08/26/2024 Noted Resolved Hyperlipidemia, mixed [E78.2] Essential hypertension [I10] Peripheral arterial disease (HCC) [I73.9] Other symptoms involving cardiovascular system * 07/20/2016 ACTINIC KERATOSIS [L57.0] 10/12/2005 IMPACTED CERUMEN [H61.20] (more content not included)... Normal [facility] 08-16-2024 [facility] Telephone (HOSP) -------- CAL MITCHELL ([id number]) 1945 M Date Time Provider Department 08/16/24 [facility] During your visit today, we recorded the following information about you: Josselyn Mayer APRN.[employer] 08/30/2024 1:49 PM Signed Please call patient [...] stenosis of unspecified carotid a*10/25/2013 03/26/2024 Frequency [[id number]] 02/11/2016 03/26/2024 BPH (benign prostatic hypertrophy) with [...] with stage 3 chroni*01/29/2020 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 pharmacist (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 [Z79.*02/04/2020 Dementia, vascular, mixed, with behavioral dist*08/26/2020 08/14/2023 Obesity, Class II, BMI 35-39.9 [E66.812] 08/15/2022 Aortic valve disorder [I35.9] 08/15/2022 Abnormal electrocardiography [R94.31] 08/14/2023 Diagnosed: 08/14/2023 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] 08/14/2023 Diagnosed: 08/14/2023 History (more content not included)... Normal [facility] Renal Profileon 08-07-2024 Albumin [Mass/Vol] 3.3 g/dL Normal 3.2-5.0 [facility] Comment on above: Performed By: #### L 500.3600 #### [facility] [address] [place], [address] BUN/CRE 14.3 RATIO Normal 10-20 [facility] Comment on above: Performed By: #### L 500.3600 #### [facility] [address] [place], [address] CA,Total 8.4 mg/dL Low 8.5-10.1 [facility] Comment on above: Performed By: #### L 500.3600 #### [facility] [address] [place], [address] Chloride [Moles/Vol] 114 mmol/L High 98-107 [facility] Comment on above: Performed By: #### L 500.3600 #### [facility] [address] [place], [address] CO2 [Moles/Vol] 25.0 mmol/L Normal 21.0-32.0 [facility] Comment on above: Performed By: #### L 500.3600 #### [facility] [address] [place], [address] Creatinine [Mass/Vol] 2.45 mg/dL High 0.70-1.30 [facility] Comment on above: Result Comment: The validity of the calculated GFR GFRAA in patients over 70 years has not been determined. Clinical correlation is essential. Performed By: #### L 500.3600 #### [facility] [address] [place], [address] EST GFR - AA 33 mL/min Low >60 [facility] Comment on above: Result Comment: Afri can Slovenian GFR Calc Performed By: #### L 500.3600 #### [facility] [address] [place], [address] GFR/1.73 sq M.predicted among non-blacks MDRD (S/P/Bld) [Vol rate/Area] 27 mL/min/{1.73_m2} Low >60 [facility] Comment on above: Result Comment: Non- GFR Calc Performed By: #### L 500.3600 #### [facility] [address] [place], [address] Glucose [Mass/Vol] 111 mg/dL High 74-106 [facility] Comment on above: Result Comment: Fast ing Glucose result from 100 to 125 mg/dL suggests IMPAIRED HOMEOSTASIS per A.D.A. criteria. Performed By: #### L 500.3600 #### [facility] [address] [place], [address] Phosphate [Mass/Vol] 2.9 mg/dL Normal 2.5-4.9 [facility] Comment on above: Performed By: #### L 500.3600 #### [facility] [address] [place], [address] Potassium [Moles/Vol] 4.5 mmol/L Normal 3.5-5.1 [facility] Comment on above: Performed By: #### L 500.3600 #### [facility] [address] [place], [address] Sodium [Moles/Vol] 144 mmol/L Normal 136-145 [facility] Comment on above: Performed By: #### L 500.3600 #### [facility] [address] [place], [place], [address] Urea nitrogen [Mass/Vol] 35 mg/dL High 7-18 [facility] Comment on above: Performed By: #### L 500.3600 #### [facility] [address] [place], [place], [address] CNOVon 08-06-2024 CNOV Office Visit (AGVASA CC) -------- CAL MITCHELL ([id number]) 1945 M Date Time Provider Department 08/06/24 1:00 PM LAURA IRAHETA During your visit today, we recorded the following information about you: Pulse Blood pressure Weight Height 61/minute 128/68 108.9 kg 1.778 m Laura Iraheta MD 08/06/2024 5:14 PM [facility] [place] DEPARTMENT OF VASCULAR SURGERY OUTPATIENT VISIT DATE [...] (more content not included)... Normal [facility] Molly 07-30-2024 LUCIO Telephone (AGCARDPOB ) -------- PAULA,CAL L ([id number]) 1945 M Date Time Provider Department 07/30/24 JOSSELYN MAYER During your visit today, we recorded the following information about you: Josselyn Mayer APRN.CNP 07/30/2024 10:44 AM Signed Attempted to contact patient and his family to update him on the treatment plan. Left voicemail requesting phone call back. QUIQUE Chapa Stacey, RN 07/31/2024 3:54 PM Signed Gustavo calls requesting a return call at [phone]. BENJIE Batres Nichole L, APRN.CNP 08/01/2024 9:58 AM Signed I spoke with Gustavo and communicated recommendations of medical therapy. He reports patient also expressed wanting to continue without any further intervention. Patient and family agreeable to plan. Josselyn Mayer APRN.CNP Allergies As of Date: 07/30/2024 (No Known Allergies) Date Reviewed: 07/23/2024 Reviewed by: Dorothy Ray, BENJIE - Fully Assessed Reason for Visit: Adoption Services Manager - Other [3602] Prescriptions as of 08/01/2024 - iv contrast [...] Insulin: No - Lancets (ONE TOUCH DELICA) [facility] lancets Test blood sugar(s) one time daily. [...] stenosis of unspecified carotid a*10/25/2013 03/26/2024 Frequency [[id number]] 02/11/2016 03/26/2024 BPH (benign prostatic hypertrophy) with [...] Hypertensive kidney disease with stage 3 chroni*01/29/2020 FPC (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 [Z79.*02/04/2020 Dementia, vascular, mixed, with behavioral dist*08/26/2020 08/14/2023 Obesity, Class II, BMI 35-39.9 [E66.812] 08/15/2022 Aortic valve disorder [I35.9] 08/15/2022 Abnormal electrocardiography [R94.31] 08/14/2023 Diagnosed: 08/14/2023 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] 08/14/2023 Diagnosed: 08/14/2023 History of carotid endarterectomy [Z98.890] 04/17/2014 Diagnosed: 08/14/2023 Chronic renal disease, stage IV (H (more content not included)... Normal [facility] CNTRTMon 07-30-2024 CNTRTM Treatment Team (AGCARDPOB) -------- CAL MITCHELL ([id number]) 1945 M Date Time Provider Department 07/30/24 JOSSELYN MAYER AGCARDPOB During your visit today, we recorded the following information about you: Moreno Josselyn Lua APRN.CNP 07/30/2024 10:47 AM Signed MULTI DISCIPLINARY HIGH RISK AVR CARDIAC TEAM Members present: Dr. Malcolm, Dr. Thacker, Dr. Norman, Dr. Escalera, Dr. Reddy, Gian Mayer APRN, KOURTNEY, Frnak Piña CNP, ALEJANDRA Ma., ALEJANDRA Rice, Niels Cardoza CNP, Tj Lambert, [employer], Frank Mello CNP Presenting Physician: see members [...] Insulin: No - Lancets (ONE TOUCH DELICA) [facility] lancets Test blood sugar(s) one time daily. [...] stenosis of unspecified carotid a*10/25/2013 03/26/2024 Frequency [[id number]] 02/11/2016 03/26/2024 BPH (benign prostatic hypertrophy) with [...] Hypertensive kidney disease with stage 3 chroni*01/29/2020 FPC (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 [Z79.*02/04/2020 Dementia, vascular, mixed, with behavioral dist*08/26/2020 08/14/2023 Obesity, Class II, BMI 35-39.9 [E66.812] 08/15/2022 Aortic valve disorder [I35.9] 08/15/2022 Abnormal electrocardiography [R94.31] (more content not included)... Normal [facility] CNPIndu 07-25-2024 CNPN Telephone (PHAALE) -------- CAL MITCHELL ([id number]) 1945 M Date Time Provider Department 07/25/24 JIMMY CARRIZALES During your visit today, we recorded the following information about you: Jimmy Carrizales, [facility] 07/25/2024 11:50 AM Signed Left voice message asking patient at [phone] (home) or daughter January to call the Anticoagulation Clinic at [phone] re: patient recenly off warfarin for heart cath on 07/23/24. Patient was prescribed Lovenox 100 mg sq Once daily by cardiology. Next Action for Anti coag Management: TM Remote Jimmy Carrizales PharmD., CACP [facility] 07/26/2024 4:30 PM Signed Called and left voice message for daughter January asking her to return call to Pharmacy Anticoagulation Clinic to discuss if Lovenox was started for patient. Josselyn Mayer, ÁLVARO.Chely Cho, RNYesterday (2:01 PM) I sent 8 syringes to [...] to test INR. Kamran Ayon PharmD, BCPS Kamran Ayon [facility] 07/27/2024 4:00 PM Signed Called daughter again to discuss if Lovenox was started for the patient after heart cath. No answer. Left message to return call to Pharmacy Anticoagulation Clinic. If no call back or INR by Monday, consider starting the discharge process. Kamran Ayon PharmD, [facility] Alejandro Molina [facility] 07/29/2024 5:32 PM Signed Called daughter - no answer. Left voicemail instructing patient to test INR via home meter as soon as possible, and/or call us to provide update re: use of Lovenox. Twin Cole [facility] 07/30/2024 10:18 AM Signed Called daughter. Left VM to call PAC at [phone]. Please check INR with home meter. Is patient on Lovenox? Ruthie Cuevas [facility] 07/31/2024 3:51 PM Signed Called and [...] 2.1. Asked I'm to report that to Insights. Advised him to continue 5mg daily and retest in 2 weeks. Ruthie Cuevas PharmD, CACP Ruthie Cuevas, [facility] 08/14/2024 11:55 AM Signed Patient was due to test INR today will continue to monitor for results. Orville Ahn Samantha [facility] 08/21/2024 11:30 AM Signed Cal Mitchell was called and reminded to test INR today or as soon as possible. [employer]VMX for pt's home number - January Dwight. Ruthie Cuevas PharmD Allergies As of Date: 07/25/2024 (No Known Allergies) Date Reviewed: 07/23/2024 Reviewed by: Dorothy Ray, BENJIE - Fully Assessed Reason for Visit: Anticoagulation [8] Cmt: Patient update Primary Visit Diagnosis: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 pharmacist (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 [Z79.01] Other Visit [...] Insulin: No - Lancets (ONE TOUCH DELICA) [facility] lancets Test blood sugar(s) one time daily. Dx: 250.00. Ins (more content not included)... Normal [facility] CATH DIAGNOSTICon 07-23 CARD CATH DIAGNOSTIC Site Id: [facility] Lab #: DEFAULT Study Date: 07/23/2024 [...] + + +------ +-----+-------+-----+--- ---+------+ Measurement Name Sys Grey End Grey Mean A Wave V Wave + [...] (more content not included)... Normal [facility] CTA ABD/PELV W IVCONon 07-23 CTA ABD/PELV W IVCON * * *Final Report* * * DATE OF EXAM: Jul 23 2024 9:29AM [facility] 0311 - CTA ABD/PELV W IVCON / [...] b. Annulus-LM distance: 1.6 cm Annulus angulations: GUATEMALAN 10 cranial 0 The ascending thoracic aorta [...] as dissection, intramural hematoma, or contained rupture. Registered Massage Therapist dimensions of the thoracic aorta are as follows: 3.8 cm at the sinuses of Valsalva (measured hipbu-mx-bmggu) 3.0 cm at the sinotubular junction. 3.5 cm in the mid-ascending aorta 3.2 cm at the distal ascending aorta 3.2 cm at the mid-transverse arch 3.3 cm at the proximal descending thoracic aorta 2.9 cm at the diaphragmatic hiatus Registered Massage Therapist dimensions of the abdominal aorta are as follows: 2.7 cm at the supra-mesenteric segment 2.5 cm at the mesenteric segment 2.3 cm at the renal segment 2.0 cm at the infrarenal segment 1.9 cm at the aortic bi (more content not included)... Normal [facility] CTA CHEST (GATED) WO/W IVCON on 07-23-2024 CTA CHEST (GATED) WO/W IVCON * * *Final Report* * * DATE OF EXAM: Jul 23 2024 9:29AM [facility] 0126 - CTA CHEST (GATED) WO/W IVCON [...] b. Annulus-LM distance: 1.6 cm Annulus angulations: GUATEMALAN 10 cranial 0 The ascending thoracic aorta [...] as dissection, intramural hematoma, or contained rupture. Registered Massage Therapist dimensions of the thoracic aorta are as follows: 3.8 cm at the sinuses of Valsalva (measured mqwkd-tb-flrat) 3.0 cm at the sinotubular junction. 3.5 cm in the mid-ascending aorta 3.2 cm at the distal ascending aorta 3.2 cm at the mid-transverse arch 3.3 cm at the proximal descending thoracic aorta 2.9 cm at the diaphragmatic hiatus Registered Massage Therapist dimensions of the abdominal aorta are as follows: 2.7 cm at the supra-mesenteric segment 2.5 cm at the mesenteric segment 2.3 cm at the renal segment 2.0 cm at the infrarenal segment 1.9 cm at the a (more content not included)... Normal [facility] HISTORY PHYSICALon HISTORY PHYSICAL HNO ID: [id number] Author: PAM REDDY MD Service: Cardiovascular Surgery [...] 2024 TIME: 9:42 AM Normal [facility] PT panel Coag (PPP)on 2023 INR Coag (PPP) [Relative time] 1.5 {INR} High 0.9-1.3 [facility] Comment on above: Order Comment: Specnick shultz Type: BLOOD SPECIMENOrdering Facility: [facility] Address: [address] [place] [address] Result Comment: Valentina min K Antagonist (VKA) Therapeutic Range: INR 2 to 3 (Target INR of 2.5) Note: For patients treated with VKA drugs, such as warfarin, the [place] [employer] 2012 Guideline recommends [...] GH, et al. Chest 2012, 141:7S-47S Rosa RA et al. [facility] 2017, 70: 252-289 Performed By: #### 3 4528-0 ####[facility]ANDRAAleisha [id number] [address] [place] PT Coag (PPP) [Time] 15.0 s High <13.1 [facility] Comment on above: Order Comment: Mareclle shultz Type: BLOOD SPECIMENOrdering Facility: [facility] Address: [address] [place] [address] Performed By: #### 3 4528-0 ####[facility]KSANDRALIA [id number] [address] [place] [facility] CAL MITCHELL ([id number]) 1945 M Date Time Provider Department 07/15/24 [place] [facility] During your visit today, we recorded the [...] Insulin: No - Lancets (ONE TOUCH DELICA) [facility] lancets Test blood sugar(s) one time daily. [...] stenosis of unspecified carotid a*10/25/2013 03/26/2024 Frequency [[id number]] 02/11/2016 03/26/2024 BPH (benign prostatic hypertrophy) with [...] with stage 3 chroni*01/29/2020 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 pharmacist (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 [Z79.*02/04/2020 Dementia, vascular, [...] 05/03/2024 Encoun (more content not included)... Normal [facility] Telephone (FAMPWS) -------- PAULACAL ([id number]) 1945 M Date Time Provider Department 07/15/24 [facility] During your visit today, we recorded the [...] hours as needed. - blood sugar diagnostic (OpenBSD FoundationUCH ULTRA TEST) test strip Test blood sugar(s) one times daily. Dx: 250.00. Insulin: No - Lancets (ONE TOUCH DELICA) [facility] lancets Test blood sugar(s) one time daily. [...] stenosis of unspecified carotid a*10/25/2013 03/26/2024 Frequency [[id number]] 02/11/2016 03/26/2024 BPH (benign prostatic hypertrophy) with [...] with stage 3 chroni*01/29/2020 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 pharmacist (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 [Z79.*02/04/2020 Dementia, vascular, [...] 1 tablet (more content not included)... Normal [facility] CBC W Auto Differential pane l (Bld)on 07-12-2024 Basophils (Bld) [#/Vol] 0.07 10*3/uL Normal <0.11 [facility] Comment on above: Order Comment: Speci men Type: BLOOD SPECIMENOrdering Facility: [facility] Address: [address] [place] [address] Performed By: #### 5 7021-8 ####[facility] LABCLIA [id number] [place] [address] [place] Basophils/100 WBC (Bld) 1.1 % Normal [facility] Comment on above: Order Comment: Speci men Type: BLOOD SPECIMENOrdering Facility: [facility] Address: [address] [place] [address] Performed By: #### 5 7021-8 ####[facility] LABCLIA [id number] [place] [address] [place] Differential cell count method Nom (Bld) Auto Normal [facility] Comment on above: Order Comment: Speci men Type: BLOOD SPECIMENOrdering Facility: [facility] Address: [address] [place] [address] Performed By: #### 5 7021-8 ####[facility] LABCLIA [id number] [place] [address] [place] Eosinophils (Bld) [#/Vol] 0.40 10*3/uL Normal <0.46 [facility] Comment on above: Order Comment: Speci men Type: BLOOD SPECIMENOrdering Facility: [facility] Address: [address] [place] [address] Performed By: #### 5 7021-8 ####[facility] LABCLIA [id number] [place] [address] [place] Eosinophils/100 WBC (Bld) 6.3 % Normal [facility] Comment on above: Order Comment: Speci men Type: BLOOD SPECIMENOrdering Facility: [facility] Address: [address] [place] [address] Performed By: #### 5 7021-8 ####[facility] LABCLIA [id number] [place] [address] [place] Erythrocyte distribution width (RBC) [Ratio] 14.6 % Normal 11.5-15.0 [facility] Comment on above: Order Comment: Speci men Type: BLOOD SPECIMENOrdering Facility: [facility] Address: [address] [place] [address] Performed By: #### 5 7021-8 ####[facility] LABIA [id number] [place] [address] [place] Hematocrit (Bld) [Volume fraction] 34.7 % Low 39.0-51.0 [facility] Comment on above: Order Comment: Speci men Type: BLOOD SPECIMENOrdering Facility: [facility] Address: [address] [place] [address] Performed By: #### 5 7021-8 ####[facility] LABIA [id number] [place] [address] [place] Hemoglobin (Bld) [Mass/Vol] 10.3 g/dL Low 13.0-17.0 [facility] Comment on above: Order Comment: Speci men Type: BLOOD SPECIMENOrdering Facility: [facility] Address: [address] [place] [address] Performed By: #### 5 7021-8 ####[facility] LABIA [id number] [place] [address] [place] Immature granulocytes (Bld) [#/Vol] 0.03 10*3/uL Normal <0.10 [facility] Comment on above: Order Comment: Speci men Type: BLOOD SPECIMENOrdering Facility: [facility] Address: [address] [place] [address] Performed By: #### 5 7021-8 ####[facility] LABIA [id number] [place] [address] [place] Immature granulocytes/100 WBC (Bld) 0.5 % Normal [facility] Comment on above: Order Comment: Speci men Type: BLOOD SPECIMENOrdering Facility: [facility] Address: [address] [place] [address] Performed By: #### 5 7021-8 ####[facility] LABCLIA [id number] [place] [address] [place] Lymphocytes (Bld) [#/Vol] 1.30 10*3/uL Normal 1.00-4.00 [facility] Comment on above: Order Comment: Speci men Type: BLOOD SPECIMENOrdering Facility: [facility] Address: [address] [place] [address] Performed By: #### 5 7021-8 ####[facility] LABCLIA [id number] [place] [address] [place] Lymphocytes/100 WBC (Bld) 20.3 % Normal [facility] Comment on above: Order Comment: Speci men Type: BLOOD SPECIMENOrdering Facility: [facility] Address: [address] [place] [address] Performed By: #### 5 7021-8 ####[facility] LABCLIA [id number] [place] [address] [place] MCH (RBC) [Entitic mass] 30.5 pg Normal 26.0-34.0 [facility] Comment on above: Order Comment: Speci men Type: BLOOD SPECIMENOrdering Facility: [facility] Address: [address] [place] [address] Performed By: #### 5 7021-8 ####[facility] LABCLIA [id number] [place] [address] [place] MCHC (RBC) [Mass/Vol] 29.7 g/dL Low 30.5-36.0 [facility] Comment on above: Order Comment: Speci men Type: BLOOD SPECIMENOrdering Facility: [facility] Address: [address] [place] [address] Performed By: #### 5 7021-8 ####[facility] LABCLIA [id number] [place] [address] [place] MCV (RBC) [Entitic vol] 102.7 fL High 80.0-100.0 [facility] Comment on above: Order Comment: Speci men Type: BLOOD SPECIMENOrdering Facility: [facility] Address: [address] [place] [address] Performed By: #### 5 7021-8 ####[facility] LABCLIA [id number] [place] [address] [place] Monocytes (Bld) [#/Vol] 0.60 10*3/uL Normal <0.87 [facility] Comment on above: Order Comment: Speci men Type: BLOOD SPECIMENOrdering Facility: [facility] Address: [address] [place] [address] Performed By: #### 5 7021-8 ####[facility] LABCLIA [id number] [place] [address] [place] Monocytes/100 WBC (Bld) 9.4 % Normal [facility] Comment on above: Order Comment: Speci men Type: BLOOD SPECIMENOrdering Facility: [facility] Address: [address] [place] [address] Performed By: #### 5 7021-8 ####[facility] LABCLIA [id number] [place] [address] [place] Neutrophils (Bld) [#/Vol] 4.00 10*3/uL Normal 1.45-7.50 [facility] Comment on above: Order Comment: Speci men Type: BLOOD SPECIMENOrdering Facility: [facility] Address: [address] [place] [address] Performed By: #### 5 7021-8 ####[facility] LABCLIA [id number] [place] [address] [place] Neutrophils/100 WBC (Bld) 62.4 % Normal [facility] Comment on above: Order Comment: Speci men Type: BLOOD SPECIMENOrdering Facility: [facility] Address: [address] [place] [address] Performed By: #### 5 7021-8 ####[facility] LABCLIA [id number] [place] [address] [place] Nucleated RBC (Bld) [#/Vol] 10*3/uL Normal <0.01 [facility] Comment on above: Order Comment: Speci men Type: BLOOD SPECIMENOrdering Facility: [facility] Address: [address] [place] [address] Performed By: #### 5 7021-8 ####[facility] LABCLIA [id number] [place] [address] [place] Nucleated RBC/100 WBC (Bld) [Ratio] 0.0 /100 WBC Normal [facility] Comment on above: Order Comment: Speci men Type: BLOOD SPECIMENOrdering Facility: [facility] Address: [address] [place] [address] Performed By: #### 5 7021-8 ####[facility] LABCLIA [id number] [place] [address] [place] Platelet mean volume (Bld) [Entitic vol] 10.5 fL Normal 9.0-12.7 [facility] Comment on above: Order Comment: Speci men Type: BLOOD SPECIMENOrdering Facility: [facility] Address: [address] [place] [address] Performed By: #### 5 7021-8 ####[facility] LABCLIA [id number] [place] [address] [place] Platelets (Bld) [#/Vol] 190 10*3/uL Normal 150-400 [facility] Comment on above: Order Comment: Speci men Type: BLOOD SPECIMENOrdering Facility: [facility] Address: [address] [place] [address] Performed By: #### 5 7021-8 ####[facility] LABCLIA [id number] [place] [address] [place] RBC (Bld) [#/Vol] 3.38 10*6/uL Low 4.20-6.00 [facility] Comment on above: Order Comment: Speci men Type: BLOOD SPECIMENOrdering Facility: [facility] Address: [address] [place] [address] Performed By: #### 5 7021-8 ####[facility] LABIA [id number] [place] [address] [place] WBC (Bld) [#/Vol] 6.40 10*3/uL Normal 3.70-11.00 [facility] Comment on above: Order Comment: Speci men Type: BLOOD SPECIMENOrdering Facility: [facility] Address: [address] [place] [address] Performed By: #### 5 7021-8 ####[facility] LABIA [id number] [place] [address] [place] CNOVon 07-12-2024 CNOV Office Visit (FAMPWS ) -------- CAL MITCHELL ([id number]) 1945 Niels Date Time Provider Department 07/12/24 11:20 AM [...] or worsening shortness of breath. Currently wearing [employer] heart monitor. Placed yesterday. Follows with Cardiology. [...] 8 hours as needed. blood sugar diagnostic (TNG PharmaceuticalsTOUCH ULTRA TEST) test strip Test blood sugar(s) one times daily. Dx: 250.00. Insulin: No Lancets (ONE TOUCH DELICA) [facility] lancets Test blood sugar(s) one time daily. [...] Use Smoking (more content not included)... Normal [facility] CNOV Office Visit (FAMPWS ) -------- CAL MITCHELL ([id number]) 1945 M Date Time Provider Department 07/12/24 [facility] During your visit today, we recorded the following information about you: Guanakito Reno MD 07/15/2024 8:05 AM Signed Apparently second visit created in error. Allergies As of Date: 07/12/2024 (No Known Allergies) Date Reviewed: 07/12/2024 Reviewed by: Carolian Alba MA - Fully Assessed Primary Visit [...] Insulin: No - [facility] blood sugar(s) one time [...] stenosis of unspecified carotid a*10/25/2013 03/26/2024 Frequency [[id number]] 02/11/2016 03/26/2024 BPH (benign prostatic hypertrophy) with [...] Hypertensive kidney disease with stage 3 chroni*01/29/2020 FPC (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 [Z79.*02/04/2020 Dementia, vascular, [...] Encounter Status:Closed by GUANAKITO RENO on 07/15/24 [facility] 07-12-2024 LUCIO Telephone (INTMWS) -------- PAULA,CAL L ([id number]) 1945 M Date Time Provider Department 07/12/24 GUANAKITO RENO INTMWS During your visit today, we recorded the following information about you: Art Estes 07/12/2024 12:40 PM Signed Attempted to find sooner apt time for patients nephrology apt, no sooner times within [facility] that are faster than patients [facility] apt. Guanakito Reno MD 07/12/2024 12:49 [...] stenosis of unspecified carotid a*10/25/2013 03/26/2024 Frequency [[id number]] 02/11/2016 03/26/2024 BPH (benign prostatic hypertrophy) with [...] Hypertensive kidney disease with stage 3 chroni*01/29/2020 FPC (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 [Z79.*02/04/2020 Dementia, vascular, [...] Status:Closed by GUANAKITO RENO on 07/12/24 Normal [facility] Comprehensive metabolic 2000 panelon 07-12-2024 Albumin [Mass/Vol] 3.8 g/dL Low 3.9-4.9 [facility] Comment on above: Order Comment: Speci men Type: BLOOD SPECIMENOrdering Facility: [facility] Address: [address] [place] [address] Performed By: #### L IPNF, 24300-9, 72831-4 ####[facility] LABCLIA [id number] [place] [address] [place] ALP [Catalytic activity/Vol] 123 U/L High 38-113 [facility] Comment on above: Order Comment: Speci men Type: BLOOD SPECIMENOrdering Facility: [facility] Address: [address] [place] [address] Performed By: #### L IPNF, 82276-4, ####[facility] LABCLIA [id number] [place] [address] [place] ALT [Catalytic activity/Vol] 23 U/L Normal 10-54 [facility] Comment on above: Order Comment: Speci men Type: BLOOD SPECIMENOrdering Facility: [facility] Address: [address] [place] [address] Performed By: #### L IPNF, 10624-8, ####[facility] LABCLIA [id number] [place] [address] [place] Anion gap [Moles/Vol] 11 mmol/L Normal 8-15 [facility] Comment on above: Order Comment: Speci men Type: BLOOD SPECIMENOrdering Facility: [facility] Address: [address] [place] [address] Performed By: #### L IPNF, 10661-0, ####[facility] LABCLIA [id number] [place] [address] [place] AST [Catalytic activity/Vol] 25 U/L Normal 14-40 [facility] Comment on above: Order Comment: Speci men Type: BLOOD SPECIMENOrdering Facility: [facility] Address: [address] [place] [address] Performed By: #### L IPNF, 00392-7, 72207-6 ####[facility] LABCLIA [id number] [place] [address] [place] Bilirubin [Mass/Vol] 0.4 mg/dL Normal 0.2-1.3 [facility] Comment on above: Order Comment: Speci men Type: BLOOD SPECIMENOrdering Facility: [facility] Address: [address] [place] [address] Performed By: #### L IPNF, 01508-7, 49137-3 ####[facility] LABCLIA [id number] [address] [address] [place] Calcium [Mass/Vol] 8.2 mg/dL Low 8.5-10.2 [facility] Comment on above: Order Comment: Speci men Type: BLOOD SPECIMENOrdering Facility: [facility] Address: [address] [place] [address] Performed By: #### L IPNF, 13692-6, 99760-6 ####[facility] LABCLIA [id number] [place] [address] [place] Chloride [Moles/Vol] 110 mmol/L High 98-107 [facility] Comment on above: Order Comment: Speci men Type: BLOOD SPECIMENOrdering Facility: [facility] Address: [address] [place] [address] Performed By: #### L IPNF, 46662-1, 79956-0 ####[facility] LABCLIA [id number] [place] [address] [place] CO2 [Moles/Vol] 22 mmol/L Normal 22-30 [facility] Comment on above: Order Comment: Speci men Type: BLOOD SPECIMENOrdering Facility: [facility] Address: [address] [place] [address] Performed By: #### L IPNF, 81727-6, 63938-2 ####[facility] LABCLIA [id number] [place] [id number] [place] Creatinine [Mass/Vol] 2.40 mg/dL High 0.73-1.22 [facility] Comment on above: Order Comment: Speci men Type: BLOOD SPECIMENOrdering Facility: [facility] Address: [address] [place] [address] Performed By: #### L IPNF, 19304-8, 23863-7 ####[facility] LABCLIA [id number] [place] [address] [place] Creatinine and Glomerular filtration rate.predicted panel (S/P/Bld) 26 mL/min/1.73m??? Low >=60 [facility] Comment on above: Order Comment: Marcelle shultz Type: BLOOD SPECIMENOrdering Facility: [facility] Address: [address] [place] [address] Result Comment: Lina mated Glomerular Filtration Rate [...] reflect actual GFR. Performed By: #### L WAYLON, 51291-7, 07575-6 ####[facility] LABCLIA [id number] [place] [address] [place] Glucose [Mass/Vol] 100 mg/dL High 74-99 [facility] Comment on above: Order Comment: Marcelle shultz Type: BLOOD SPECIMENOrdering Facility: [facility] Address: [address] [place] [address] Result Comment: The [place] Diabetes Association (ADA) provides guidance for cutoff [...] Standards of Medical Care in Diabetes 2016, [place] Diabetes Association. Diabetes Care. 2016.39(Suppl 1). Performed By: #### L WAYLON, 23896-4, 35102-5 ####[facility] LABCLIA [id number] [place] [address] [place] Potassium [Moles/Vol] 4.6 mmol/L Normal 3.7-5.1 [facility] Comment on above: Order Comment: Speci men Type: BLOOD SPECIMENOrdering Facility: [facility] Address: [address] [place] [address] Performed By: #### L IPNF, 32125-6, 15586-3 ####[facility] LABCLIA [id number] [place] [address] [place] Protein [Mass/Vol] 6.6 g/dL Normal 6.3-8.0 [facility] Comment on above: Order Comment: Speci men Type: BLOOD SPECIMENOrdering Facility: [facility] Address: [address] [place] [address] Performed By: #### L IPNF, 86155-0, ####[facility] LABCLIA [id number] [place] [address] [place] Sodium [Moles/Vol] 143 mmol/L Normal 136-144 [facility] Comment on above: Order Comment: Speci men Type: BLOOD SPECIMENOrdering Facility: [facility] Address: [address] [place] [address] Performed By: #### L IPNF, 70187-2, 75066-6 ####[facility] LABCLIA [id number] [place] [address] [place] Urea nitrogen [Mass/Vol] 37 mg/dL High 9-24 [facility] Comment on above: Order Comment: Speci men Type: BLOOD SPECIMENOrdering Facility: [facility] Address: [address] [place] [address] Performed By: #### L IPNF, 90060-2, 89108-9 ####[facility] LABCLIA [id number] [place] [id number] [place] HbA1c (Bld)on 07-12-2024 Average glucose Estimated from glycated hemoglobin (Bld) [Mass/Vol] 134 mg/dL Normal [facility] Comment on above: Order Comment: Marcelle shultz Type: BLOOD SPECIMENOrdering Facility: [facility] Address: [address] [place] [address] Result Comment: eAG: (Estimated average glucose) is a calculated value from HgbA1c and is construction representative of the average blood glucose level in the last 2-3 month period. Performed By: #### 5 5454-3 ####[facility] LABCLIA [id number] [place] [address] [place] HbA1c (Bld) [Mass fraction] 6.3 % High 4.3-5.6 [facility] Comment on above: Order Comment: Marcelle shultz Type: BLOOD SPECIMENOrdering Facility: [facility] Address: [address] [place] [address] Result Comment: Amer [place] Diabetes Association guidelines indicate that patients with HgbA1c in the range 5.7-6.4% are at increased risk for development of diabetes, and intervention by lifestyle modification may be beneficial. HgbA1c greater or equal to 6.5% is considered diagnostic of diabetes. Performed By: #### 5 5454-3 ####[facility] LABCLIA [id number] [place] [address] [place] LIPID PANEL, NONFASTINGon Cholesterol [Mass/Vol] 156 mg/dL Normal <200 [facility] Comment on above: Order Comment: Marcelle shultz Type: BLOOD SPECIMENOrdering Facility: [facility] Address: [address] [place] [address] Result Comment: <200 mg/dL, Desirable 200-239 mg/dL, Borderline high >239 mg/dL, High Performed By: #### L IPNF, 18401-1, 96722-9 ####[facility] LABCLIA [id number] [place] [address] [place] HDL CHOLESTEROL, NF 44 mg/dL Normal >39 [facility] Comment on above: Order Comment: Jocelinnick shultz Type: BLOOD SPECIMENOrdering Facility: [facility] Address: [address] [place] [address] Result Comment: 40-5 9 mg/dL, Acceptable >59 mg/dL, High: Negative risk factor for coronary heart disease <40 mg/dL, Low: Positive risk factor for coronary heart disease Performed By: #### L IPNF, 90326-2, 70101-7 ####[facility] LABCLIA [id number] [address] LDL CHOLESTEROL, NF 93 mg/dL Normal <100 [facility] Comment on above: Order Comment: Jocelinnick shultz Type: BLOOD SPECIMENOrdering Facility: [facility] Address: [address] [place] [address] Result Comment: <100 mg/dL, Optimal 100-129 mg/dL, Near optimal/above optimal 130-159 mg/dL, Borderline high 160-189 mg/dL, High >189 mg/dL, Very high Secondary prevention optimal LDL Cholesterol levels are recommended to be < 70 mg/dL Performed By: #### L IPNF, 15101-8, 75512-9 ####[facility] LABCLIA [id number] [address] LDL/HDL RATIO, NF 2.11 mg/dL Normal <2.54 [facility] Comment on above: Order Comment: Marcelle shultz Type: BLOOD SPECIMENOrdering Facility: [facility] Address: [address] [place] [address] Result Comment: Refe rence: 1. National Cholesterol Education Program ATP III Guideline At-A-Glance Quick Desk Reference: National Heart, Lung, and Blood [place]. National Institutes of Health. 2001: NIH Publication No. 01-3305. 2. An International Atherosclerosis Society position paper: global recommendations for the management of dyslipidemia: executive summary, Atherosclerosis. 2014: 232(2):410-413. Performed By: #### L IPNF, 44106-3, 26357-4 ####[facility] LABCLIA [id number] [place] [address] [place] NON HDL CHOL, NF 112 mg/dL Normal <130 [facility] Comment on above: Order Comment: Speci men Type: BLOOD SPECIMENOrdering Facility: [facility] Address: [address] [place] [address] Result Comment: <130 mg/dL, Optimal 130-159 mg/dL, Near optimal/above optimal 160-189 mg/dL, Borderline high 190-219 mg/dL, High >219 mg/dL, Very high Secondary prevention optimal non HDL Cholesterol levels are recommended to be <100 mg/dL Performed By: #### L IPNF, 71095-5, 00334-3 ####[facility] LABCLIA [id number] [place] [address] [place] T CHOL/HDL RATIO NF 3.55 mg/dL Normal <5.10 [facility] Comment on above: Order Comment: Speci men Type: BLOOD SPECIMENOrdering Facility: [facility] Address: [address] [place] [address] Performed By: #### L IPNF, 80386-1, 90361-1 ####[facility] LABCLIA [id number] [place] [address] [place] TRIGLYCERIDES, NF 97 mg/dL Normal <150 [facility] Comment on above: Order Comment: Speci men Type: BLOOD SPECIMENOrdering Facility: [facility] Address: [address] [place] [address] Result Comment: <150 mg/dL, Normal 150-199 mg/dL, Borderline high 200-499 mg/dL, High >499 mg/dL, Very high Performed By: #### L IPNF, 03810-3, 55570-6 ####[facility] LABCLIA [id number] [place] [address] [place] VLDL CHOLESTEROL, NF 19 mg/dL Normal <30 [facility] Comment on above: Order Comment: Speci men Type: BLOOD SPECIMENOrdering Facility: [facility] Address: [address] [place] [address] Performed By: #### L IPNF, 85736-9, 85821-1 ####[facility] LABIA [id number] [address] [place] NT-proBNP [facility] Natriuretic peptide.B prohormone N-Terminal [Mass/Vol] 314 pg/mL Normal <450 [facility] Comment on above: Order Comment: Speci men Type: BLOOD SPECIMENOrdering Facility: [facility] Address: [address] [place] [address] Performed By: #### L IPNF, 71604-3, 37788-2 ####[facility] LABIA [id number] [address] [place] PT panel Coag (PPP)on 2023 INR Coag (PPP) [Relative time] 2.8 {INR} High 0.9-1.3 [facility] Comment on above: Order Comment: Speci men Type: BLOOD SPECIMENOrdering Facility: [facility] Address: [address] [place] [address] Result Comment: Valentina min K Antagonist (VKA) Therapeutic Range: INR 2 to 3 (Target INR of 2.5) Note: For patients treated with VKA drugs, such as warfarin, the [place] College of Chest Physicians 2012 Guideline recommends [...] GH, et al. Chest 2012, 141:7S-47S Rosa RA et al. JACC 2017, 70: 252-289 Performed By: #### 3 4528-0 ####[facility] LABCLIA [id number] [place] [address] [place] PT Coag (PPP) [Time] 27.0 s High 9.7-13.0 [facility] Comment on above: Order Comment: Speci men Type: BLOOD SPECIMENOrdering Facility: [facility] Address: [address] [facility] [place] [address] Performed By: #### 3 4528-0 ####[facility] LABCLIA [id number] [address] OF [facility] CNOVon 07-10-2024 CNOV Office Visit (AGTAVR ) -------- PAULACAL ([id number]) 1945 M Date Time Provider Department 07/10/24 [...] SIGNATURE: Bi Cantu LPN PATIENT NAME: Cal Villanuevaersoll DATE: July 10, 2024 TIME: 8:06 AM PAGER/CONTACT #: [phone] Josselyn Mayer, ÁLVARO.[employer] 07/10/2024 9:31 AM Addendum Today, you met [...] (more content not included)... Normal [facility] CNOV Office Visit (AGTAVR ) -------- CAL MITCHELL ([id number]) 1945 M Date Time Provider Department 07/10/24 [...] 10, 2024 TIME: 8:13 AM PAGER/CONTACT #: [phone] Cal Thacker MD 07/10/2024 9:32 AM Signed PRIMARY CARE PHYSICIAN: Guanakito Reno [address] [place] [address] Subjective Chief Complaint Patient presents with: Aortic [...] (more content not included)... Normal [facility] ECG B/O W INTERP (MED OFFICE )on 07-10-2024 Sinus rhythm with fi rst degree heart block [facility] NURSING PROGon 07-10-2024 NURSING PROG HNO ID: [id number] Author: JUDY DÍAZ, Family Consultant Service: ? Author Type: Family Consultant Type: Nursing Progress Note Filed: 07/10/2024 10:29 Note Text: Applied 14 day extended wear EKG patch. Pt verbalized understanding of monitor use / diary. Normal [facility] CNPNon 07-05-2024 CNPN Telephone (PHARBW) -------- CAL MITCHELL ([id number]) 1945 M Date Time Provider Department 07/05/24 ANNAMARIE GARCIA PHARBW During your visit today, we recorded the following information about you: Annamarie Garcia RPh 07/05/2024 9:47 AM Signed [facility] Ambulatory Pharmacy Anticoagulation Clinic Anticoagulation Episode Summary Anticoagulation Care Providers Provider Role Specialty Phone number Guanakito Reno MD [facility] Family Medicine [phone] Cal Lua Paula is a 79 year [...] Allergies Indication for Warfarin: 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 pharmacist (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 Paroxysmal atrial fibrillation (hcc) Anticoagulation Episode Summary Current INR goal: 2.0-3.0 Assessment: INR result of 2.2 is therapeutic Plan: Current Warfarin Dosing As of 07/05/2024 Full warfarin instructions: 5 mg every day Left voice message And sent [employer] message Advised patient to continue current weekly dose as noted above Next home INR check scheduled on 07/18/2024 Annamarie Garcia [facility] Clinical Pharmacist, Pharmacy Anticoagulation Clinic Pharmacy Anticoagulation Clinic Pager: [phone]. Jimmy Carrizales [facility] 07/18/2024 2:29 PM Signed Patient was due to test INR today. Will continue to monitor for results. Follow up in one week if no results received. Jimmy Carrizales RPh Allergies As of Date: 07/05/2024 (No Known Allergies) Date Reviewed: 06/06/2024 Reviewed by: Carolina Landeros APRN.CNP - Fully Assessed Reason for Visit: Anticoagulation Telephone Fu [148] Primary Visit Diagnosis:FPC (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 [Z79.01] Other Visit [...] Insulin: No - Lancets (ONE TOUCH DELICA) [facility] lancets Test blood sugar(s) one time daily. [...] OTHER ABNORM (more content not included)... [facility] -------- CAL MITCHELL ([id number]) 1945 M Date Time Provider Department 06/27/24 GUANAKITO RENO [facility] During your visit today, we recorded the following information about you: Allergies As of Date: 2024 (No Known Allergies) Date Reviewed: 06/06/2024 Reviewed by: Carolina Landeros APRN.[employer] - Fully Assessed Primary Visit Diagnosis:Screen for colon cancer [Z12.11] Order(s):IMMUNOCHEMICAL FECAL OCCULT BLOOD TEST [SQIFOBT] Order #: [id number]. #:[id number] Prescriptions as of 2024 - atorvastatin (LIPITOR) [...] hours as needed. - blood sugar diagnostic (TNG PharmaceuticalsTOUCH ULTRA TEST) test strip Test blood sugar(s) one times daily. Dx: 250.00. Insulin: No - Lancets (ONE TOUCH DELICA) [facility] lancets Test blood sugar(s) one time daily. [...] stenosis of unspecified carotid a*10/25/2013 03/26/2024 Frequency [[id number]] 02/11/2016 03/26/2024 BPH (benign prostatic hypertrophy) with [...] Hypertensive kidney disease with stage 3 chroni*01/29/2020 FPC (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 [Z79.*02/04/2020 Dementia, vascular, [...] Status:Closed by GUANAKITO RENO on 06/27/24 Normal [facility] Hemoccult Stl Ql IAon 2023 Lower GI hemoglobin IA Ql (Stl) Negative Normal Negative [facility] Comment on above: Order Comment: Speci men Type: STOOL SPECIMENOrdering Facility: [facility] Address: [address] [place] [address] Performed By: #### 2 9771-3 ####[facility] LABPITO [id number] [facility] [id number] [id number] [place] CNPIndu 06-18-2024 CNPN Telephone (PHAMTE) -------- PAULACAL ([id number]) 1945 M Date Time Provider Department 06/18/24 JIMMY CARRIZALES During your visit today, we recorded the following information about you: [facility] 06/18/2024 8:42 AM Signed [facility] Ambulatory Pharmacy Anticoagulation Clinic Anticoagulation Episode Summary Anticoagulation Care Providers Provider Role Specialty Phone number Guanakito Reno MD [facility] Family Medicine [phone] Cal Lua Paula is a 78 year old year old [...] 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: FPC (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 Paroxysmal atrial fibrillation [...] INR check scheduled on 07/02/2024 Jimmy Carrizales [facility] Clinical Pharmacist, Pharmacy Anticoagulation Clinic Pharmacy Anticoagulation Clinic Pager: [phone]. Jimmy Carrizales bobbi 07/02/2024 5:21 PM Signed Patient was due to test INR today. Will continue to monitor for results. Follow up in one week if no results received. Jimmy Carrizales RPh Allergies As of Date: 06/18/2024 (No Known Allergies) Date Reviewed: 06/06/2024 Reviewed by: Carolina Landeros APRN.[employer] - Fully Assessed Reason for Visit: Anticoagulation Telephone Fu [148] Cmt: Home INR Primary Visit Diagnosis: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 pharmacist (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 [Z79.01] Other Visit [...] hours as needed. - blood sugar diagnostic (OpenBSD FoundationUCH ULTRA TEST) test strip Test blood sugar(s) [...] 05/24/2018 Occlu (more content not included)... Normal [facility] CNOVon 06-06-2024 CNOV Office Visit (FAMPWS ) -------- CAL MITCHELL ([id number]) 1945 M Date Time Provider Department 06/06/24 11:20 AM [facility] During your visit today, we recorded the following information about you: Pulse Respiration Blood pressure Weight 71/minute 18/minute 144/68 110.7 kg Carolina Landeros APRN.[employer] 06/06/2024 12:14 PM Signed This is a [...] 8 hours as needed. blood sugar diagnostic (TNG PharmaceuticalsTOUCH ULTRA TEST) test strip Test blood sugar(s) one times daily. Dx: 250.00. Insulin: No Lancets (ONE TOUCH DELICA) [facility] lancets Test blood sugar(s) one time daily. [...] breath so (more content not included)... Normal [facility] CNOVon 06-05-2024 [facility] -------- CAL MITCHELL ([id number]) 1945 M Date Time Provider Department 06/05/24 5:00 PM [facility] During your visit today, we recorded the following information about you: Temperature Pulse Respiration Blood pressure 96.6 degrees 75/minute 19/minute 140/70 Weight 110.7 kg Valerie Gruber APRN.CNP 06/05/2024 5:16 PM Signed This note was created using Famo.usriter. Subjective Cal Mitchell is a 78 year old male. 78 year old male with PMH HTN, hyperlipidemia, afib, PAD, CKD, DM presents for medical complaints. Acute onset of symptoms was over a week ago Patients daughter had sent in a foodpanda / hellofood message on 06/03/24. At that time she [...] history is provided by the patient. No speech language pathologist travel was used. Edema This is a new [...] 250.00. Insulin: No Lancets (ONE TOUCH DELICA) [facility] lancets Test blood sugar(s) one time daily. [...] chest tigh (more content not included)... Normal [facility] CNPNon 05-20-2024 CNPN Telephone (AGCARDPOB ) -------- PAULACAL ([id number]) 1945 M Date Time Provider Department 05/20/24 PAM REDDY Sproxil During your visit today, we recorded the [...] PM Signed ----- Message from Josselyn Mayer APRN.[employer] sent at 05/20/2024 2:28 PM EDT ----- Creatinine 2.3. Per chart review he was asymptomatic but had an episode of syncope. Do you want work up first or just valve clinic? Josselyn ----- Message ----- From: Pam Reddy MD Sent: 05/18/2024 8:44 AM EDT To: Chely Nicolas RN; Josselyn Mayer APRN.[employer] Aortic stenosis need to establish care at the valve clinic Chely Zeng RN 05/23/2024 8:26 AM Signed Pam Reddy MD You; Josselyn Mayer APRN.CNP15 [...] hours as needed. - blood sugar diagnostic (TNG PharmaceuticalsTOUCH ULTRA TEST) test strip Test blood sugar(s) [...] stenosis of unspecified carotid a*10/25/2013 03/26/2024 Frequency [TLV5099] 02/11/2016 03/26/2024 BPH (benign prostatic hypertrophy) with [...] Hypertensive kidney disease with stage 3 chroni*01/29/2020 FPC (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 Normal [facility] CNPN Telephone (AGCARDPOB ) -------- CAL MITCHELL ([id number]) 1945 M Date Time Provider Department 05/20/24 JOSSELYN MAYER AGCARDPOAmirah During your visit today, we recorded the following information about you: Josselyn Mayer APRN.KOURTNEY 05/20/2024 2:34 PM Signed Attempted to call [...] care with Nephrologists. Thank you, Josselyn Mayer APRN.Claritza Brice 05/21/2024 3:11 PM Signed Patient's son in law called in to confirm appointment with Dr. Reddy. Thanks Claritza Hardin Allergies As of Date: 05/20/2024 (No Known Allergies) Date Reviewed: 05/06/2024 Reviewed by: Twin Garcia LPN - Fully Assessed Reason for Visit: Adoption Services Manager - Other [3602] Prescriptions as of 07/22/2024 [...] Insulin: No - Lancets (ONE TOUCH DELICA) [facility] lancets Test blood sugar(s) one time daily. 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 (more content not included)... Normal [facility] CNPNon 05-17-2024 CNPN Telephone (PHARSO) -------- PAULACAL Chanell ([id number]) 1945 M Date Time Provider Department 05/17/24 DOROTHY SAINZ During your visit today, we recorded the following information about you: Dorothy Sainz RPh 05/17/2024 9:25 AM Signed [facility] Ambulatory Pharmacy Anticoagulation Clinic Anticoagulation Episode Summary Anticoagulation Care Providers Provider Role Specialty Phone number Guanakito Reno MD [facility] Family Medicine [phone] Cal Chanell Mitchell is a 78 year old year [...] 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: FPC (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 Paroxysmal atrial fibrillation (hcc) Anticoagulation Episode Summary Current INR goal: 2.0-3.0 Assessment: INR result of 2.8is therapeutic Plan: Current Warfarin Dosing As of 05/17/2024 Full warfarin instructions: 5 mg every day Sent [employer] message Advised patient to continue current weekly dose as noted above Next home INR check scheduled on 05/30/2024 Dorothy Sainz [facility] Clinical Pharmacist, Pharmacy Anticoagulation Clinic Pharmacy Anticoagulation Clinic Pager: [phone]. Jimmy Carrizales [facility] 05/30/2024 3:39 PM Signed Patient was due to test INR today. Will continue to monitor for results. Follow up in one week if no results received. Jimmy Carrizales [facility] Jimmy Carrizales [facility] 06/06/2024 2:34 PM Signed Cal Mitchell was called, lvmx and reminded to test INR today or as soon as possible. Jimmy Carrizales [facility] Jimmy Carrizales [facility] 06/13/2024 11:42 AM Signed Cal Mitchell was called, lvmx and reminded to test INR today or as soon as possible. Jimmy Carrizales [facility] Daniel ([employer] Developer)Ashley 06/13/2024 5:04 PM Signed DISCHARGE No return call from patient. Letter sent. FINAL ATTEMPT letter sent at this time. If no response from patient within 3 weeks, patient will be discharged from PAC at that time. Will also route to referring MD as FYI and to see if office can assist in reaching patient. Ashley Sanchze CPhT (Auto Self Service Station Attendant) Pharmacy Anticoagulation Clinic' Allergies As of Date: 05/17/2024 (No Known Allergies) Date Reviewed: 05/06/2024 Reviewed by: Twin Garcia LPN - Fully Assessed Reason for Visit: Anticoagulation Telephone Fu [148] Primary Visit Diagnosis:FPC (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 [Z79.01] Other Visit [...] Insulin: No - Lancets (ONE TOUCH DELICA) [facility] lancets Test blood sugar(s) one time daily. Dx: 250.00. Insulin: No Problem List As Of Date 05/17/2024 Noted Resolved Hyperlipidemia, mixed [E78.2] Essential hypertension [I10] Peripheral arterial disease (HCC) [I73.9] Other symptoms involving cardiovascular system * 07/20/2016 ACTI (more content not included)... Normal [facility] Kidney - bilateral and Ur inary bladderon 05-02-2024 IMPRESSION: No hydronephrosis. Cholelithiasis. Lead Coater: MAC Transcribe Date/Time: May 02 2024 7:17P Dictated by : TIN COTTER DO This examination was interpreted and the report reviewed and electronically signed by: TIN COTTER DO on May 02 2024 7:19PM [facility] DIVISION OF RADIOLOGY * * *Final Report* * * DATE OF EXAM: May 02 2024 10:49AM [facility]BLADDER / PROCEDURE REASON: [...] Incidentally noted cholelithiasis. DIVISION OF RADIOLOGY Provider, [facility] - 05/02/2024 * * *Final Report* * * DATE OF EXAM: May 02 2024 10:49AM [facility]/BLADDER / PROCEDURE REASON: [...] noted cholelithiasis. IMPRESSION IMPRESSION: No hydronephrosis. Cholelithiasis. Lead Coater: MAC Transcribe Date/Time: May 02 2024 7:17P Dictated by : TIN COTTER DO This examination was interpreted and the report reviewed and electronically signed by: TIN COTTER DO on May 02 2024 7:19PM EST [facility] Radiology Study observation (narrative) Alexx Lopes US Kidney - bilateral and Ur inary bladderOrdered By: Ccf Provider on 05-02-2024 [facility] NT PRO BNPon 03-26-2024 Natriuretic peptide.B prohormone N-Terminal [Mass/Vol] 501 pg/mL High NINF - 450 pg/mL [facility] Natriuretic peptide.B prohor jodie N-Terminal [Mass/Vol]on 03-26-2024 Interpretation and review of laboratory results Abnormal [facility] THYROID STIMULATING HORMONEo n 03-26-2024 TSH Qn 2.950 m[IU]/L [facility] TSH Qnon 03-26-2024 Interpretation and review of laboratory results Normal [facility] CBC panel Auto (Bld)on 03-25 Erythrocyte distribution width (RBC) [Ratio] 14.9 % 11.5 - 15.0 % [facility] Hematocrit (Bld) [Volume fraction] 31.8 % Low 39.0 - 51.0 % [facility] Hemoglobin (Bld) [Mass/Vol] 9.6 g/dL Low 13.0 - 17.0 g/dL [facility] Interpretation and review of laboratory results Abnormal [facility] MCH (RBC) [Entitic mass] 30.9 pg 26.0 - 34.0 pg [facility] MCHC (RBC) [Mass/Vol] 30.2 g/dL Low 30.5 - 36.0 g/dL [facility] MCV (RBC) [Entitic vol] 102.3 fL High 80.0 - 100.0 fL [facility] Nucleated RBC (Bld) [#/Vol] NINF [facility] Platelet mean volume (Bld) [Entitic vol] 9.8 fL 9.0 - 12.7 fL [facility] Platelets (Bld) [#/Vol] 158 10*3/uL [facility] RBC (Bld) [#/Vol] 3.11 10*6/uL Low 4.20 - 6.0 0 m/uL [facility] WBC (Bld) [#/Vol] 4.72 10*3/uL [facility] Comprehensive metabolic 2000 panelOrdered By: Haley Marie on 03-25-2024 Albumin [Mass/Vol] 3.7 g/dL Low 3.9 - 4.9 g/dL [facility] ALP [Catalytic activity/Vol] 109 U/L 38 - 113 U/L [facility] ALT [Catalytic activity/Vol] 15 U/L 10 - 54 U/L [facility] Anion gap [Moles/Vol] 12 mmol/L 8 - 15 mmol/L [facility] AST [Catalytic activity/Vol] 19 U/L 14 - 40 U/L [facility] Bilirubin [Mass/Vol] 0.3 mg/dL 0.2 - 1 .3 mg/dL [facility] Calcium [Mass/Vol] 8.6 mg/dL 8.5 - 10. 2 mg/dL [facility] Chloride [Moles/Vol] 113 mmol/L High 98 - 10 7 mmol/L [facility] CO2 [Moles/Vol] 16 mmol/L Low 22 - 30 mmol/L [facility] Creatinine [Mass/Vol] 2.48 mg/dL High 0.73 - 1.22 mg/dL [facility] GFR/1.73 sq M.predicted among non-blacks MDRD (S/P/Bld) [Vol rate/Area] 26 mL/min/{1.73_m2} Low - PINF [facility] Comment on above: Estimated Glomerular Filtration Rate [...] [Mass/Vol] 99 mg/dL 74 - 99 mg/dL [facility] Comment on above: The [place] Diab[employer] s Association (ADA) provides guidance for [...] Standards of Medical Care in Diabetes 2016, [place] Diabetes Association. Diabetes Care. 2016.39(Suppl 1). Interpretation and review of laboratory results Abnormal [facility] Potassium [Moles/Vol] 4.4 mmol/L 3.7 - 5.1 mmol/L [facility] Protein [Mass/Vol] 6.4 g/dL 6.3 - 8.0 g/dL [facility] Sodium [Moles/Vol] 141 mmol/L 136 - 144 mmol/L [facility] Urea nitrogen [Mass/Vol] 49 mg/dL High 9 - 24 mg/dL [facility] ALBUMIN/CREAT RATIO RND URon 08-14-2023 Albumin DL <= 20 mg/L (U) [Mass/Vol] 26.7 mg/L [facility] Albumin/Creatinine (U) [Mass ratio] 27 mg/g <30 mg/g [facility] Creatinine (U) [Mass/Vol] 98.9 mg/dL 20.0 - 300.0 mg/dL [facility] CBC W Auto Differential pane l (Bld)on 08-14-2023 Basophils (Bld) [#/Vol] 0.05 10*3/uL <0.11 k/uL [facility] Basophils/100 WBC (Bld) 0.9 % [facility] Differential cell count method Nom (Bld) Auto [facility] Eosinophils (Bld) [#/Vol] 0.44 10*3/uL <0.46 k/uL [facility] Eosinophils/100 WBC (Bld) 8.3 % [facility] Erythrocyte distribution width (RBC) [Ratio] 14.5 % 11.5 - 15.0 % [facility] Hematocrit (Bld) [Volume fraction] 38.6 % Low 39.0 - 51.0 % [facility] Hemoglobin (Bld) [Mass/Vol] 11.7 g/dL Low 13.0 - 17.0 g/dL [facility] Immature granulocytes (Bld) [#/Vol] <0.10 k/uL [facility] Immature granulocytes/100 WBC (Bld) 0.4 % [facility] Lymphocytes (Bld) [#/Vol] 1.18 10*3/uL 1.00 - 4.00 k/uL [facility] Lymphocytes/100 WBC (Bld) 22.1 % [facility] MCH (RBC) [Entitic mass] 31.3 pg 26.0 - 34.0 pg [facility] MCHC (RBC) [Mass/Vol] 30.3 g/dL Low 30.5 - 36.0 g/dL [facility] MCV (RBC) [Entitic vol] 103.2 fL High 80.0 - 100.0 fL [facility] Monocytes (Bld) [#/Vol] 0.42 10*3/uL <0.87 k/uL [facility] Monocytes/100 WBC (Bld) 7.9 % [facility] Neutrophils (Bld) [#/Vol] 3.22 10*3/uL 1.45 - 7.50 k/uL [facility] Neutrophils/100 WBC (Bld) 60.4 % [facility] Nucleated RBC (Bld) [#/Vol] <0.01 k/uL [facility] Nucleated RBC/100 WBC (Bld) [Ratio] 0.0 /100 WBC [facility] Platelet mean volume (Bld) [Entitic vol] 10.5 fL 9.0 - 12.7 fL [facility] Platelets (Bld) [#/Vol] 144 10*3/uL Low 150 - 400 k/uL [facility] RBC (Bld) [#/Vol] 3.74 10*6/uL Low 4.20 - 6.0 0 m/uL [facility] WBC (Bld) [#/Vol] 5.33 10*3/uL 3.70 - 11.00 k/uL [facility] Comprehensive metabolic 2000 panelon 08-14-2023 Albumin [Mass/Vol] 4.1 g/dL 3.9 - 4.9 g/dL [facility] ALP [Catalytic activity/Vol] 111 U/L 38 - 113 U/L [facility] ALT [Catalytic activity/Vol] 21 U/L 10 - 54 U/L [facility] Anion gap [Moles/Vol] 11 mmol/L 9 - 18 mmol/L [facility] AST [Catalytic activity/Vol] 26 U/L 14 - 40 U/L [facility] Bilirubin [Mass/Vol] 0.5 mg/dL 0.2 - 1 .3 mg/dL [facility] Calcium [Mass/Vol] 8.8 mg/dL 8.5 - 10. 2 mg/dL [facility] Chloride [Moles/Vol] 106 mmol/L High 97 - 10 5 mmol/L [facility] CO2 [Moles/Vol] 24 mmol/L 22 - 30 mmol/L [facility] Creatinine [Mass/Vol] 2.30 mg/dL High 0.73 - 1.22 mg/dL [facility] Estimated Glomerular Filtration Rate 28 mL/min/1.73m Low >=60 mL/min/1.73 m [facility] Glucose [Mass/Vol] 113 mg/dL High 74 - 99 mg/dL [facility] Potassium [Moles/Vol] 4.6 mmol/L 3.7 - 5.1 mmol/L [facility] Protein [Mass/Vol] 7.0 g/dL 6.3 - 8.0 g/dL [facility] Sodium [Moles/Vol] 141 mmol/L 136 - 144 mmol/L [facility] Urea nitrogen [Mass/Vol] 28 mg/dL High 9 - 24 mg/dL [facility] HbA1c (Bld)on 08-14-2023 Average glucose Estimated from glycated hemoglobin (Bld) [Mass/Vol] 108 mg/dL [facility] HbA1c (Bld) [Mass fraction] 5.4 % 4.3 - 5.6 % [facility] Lipid 1996 panelon Cholesterol [Mass/Vol] 165 mg/dL <200 mg/dL [facility] Cholesterol in HDL [Mass/Vol] 44 mg/dL >39 mg/dL [facility] Cholesterol in LDL [Mass/Vol] 100 mg/dL High <100 mg/dL [facility] Cholesterol in LDL/Cholesterol in HDL [Mass ratio] 2.27 {ratio} <2.54 [facility] Cholesterol in VLDL [Mass/Vol] 21 mg/dL <30 mg/dL [facility] Cholesterol non HDL [Mass/Vol] 121 mg/dL <130 mg/dL [facility] Cholesterol.total/Julia sterol in HDL [Mass ratio] 3.75 {ratio} <5.10 [facility] Fasting Time 14 hrs [facility] Triglyceride [Mass/Vol] 106 mg/dL <150 mg/dL [facility] INR FINGERSTICK B/Oon 2021 INR Coag (Bld) [Relative time] 1.9 (self reporting) [facility] INR FINGERSTICK B/Oon 2021 INR Coag (Bld) [Relative time] 2.1 biotel [facility] Quality Check No [facility] Vital Signs Date Time Vital Sign Value Performing Clinician Facility 03-07-2025 12:57-0400 Body height 177.[address] Guanakito Reno MD Work Phone: [facility] 03-07-2025 12:57-0400 Body mass index (BMI) [Ratio] 35.9 kg/m2 Dr. Guanakito Reno MD Work Phone: [facility] 03-07-2025 12:57-0400 Body weight 113.[address] Guanakito Reno MD Work Phone: [facility] 01-21-2025 15:33-0400 Body mass index (BMI) [Ratio] 37.02 kg/m2 Carolina Landeros [address] OPERATIONS CLERK.[employer] Work Phone: [facility] 01-21-2025 15:33-0400 Body temperature 97.59 [degF] Carolina Suppernesto COURT OPERATIONS CLERK.[employer] Work Phone: [facility] 01-21-2025 15:33-0400 Body weight 117.[address] OPERATIONS CLERK.[employer] Work Phone: [facility] 01-21-2025 15:33-0400 Diastolic blood pressure 60 mm[Hg] Carolina Landeros COURT OPERATIONS CLERK.[employer] Work Phone: [facility] 01-21-2025 15:33-0400 Heart rate 59 /min Carolina Landeros COURT OPERATIONS CLERK.[employer] Work Phone: [facility] 01-21-2025 15:33-0400 SaO2% (BldA) [Mass fraction] 97 % Carolina Landeros COURT OPERATIONS CLERK.[employer] Work Phone: [facility] 01-21-2025 15:33-0400 Systolic blood pressure 122 mm[Hg] Carolina Landeros COURT OPERATIONS CLERK.[employer] Work Phone: [facility] 08-06-2024 12:57-0400 Body height 177.8 cm Laura Iraheta MD Work Phone: [facility] Comment on above: patient reports 08-06-2024 12:57-0400 Body mass index (BMI) [Ratio] 34.44 kg/m2 Laura Iraheta MD Work Phone: [facility] 08-06-2024 12:57-0400 Body weight 108.86 kg Laura Iraheta MD Work Phone: [facility] 08-06-2024 12:57-0400 Diastolic blood pressure 68 mm[Hg] Laura Iraheta MD Work Phone: [facility] 08-06-2024 12:57-0400 Heart rate 61 /min Laura Iraheta MD Work Phone: [facility] 08-06-2024 12:57-0400 SaO2% (BldA) [Mass fraction] 99 % Laura Iraheta MD Work Phone: [facility] 08-06-2024 12:57-0400 Systolic blood pressure 128 mm[Hg] Laura Iraheta MD Work Phone: [facility] 07-12-2024 11:22-0400 Body height 177.8 cm Guanakito Reno MD Work Phone: [facility] 07-12-2024 11:22-0400 Body mass index (BMI) [Ratio] 34.55 kg/m2 Guanakito Reno MD Work Phone: [facility] 07-12-2024 11:22-0400 Body weight 109.23 kg Guanakito Reno MD Work Phone: [facility] 07-12-2024 11:22-0400 Diastolic blood pressure 62 mm[Hg] Guanakito Reno MD Work Phone: [facility] 07-12-2024 11:22-0400 Heart rate 59 /min Guanakito Reno MD Work Phone: [facility] 07-12-2024 11:22-0400 Systolic blood pressure 114 mm[Hg] Guanakito Reno MD Work Phone: [facility] 07-10-2024 08:11-0400 Body height 177.8 cm Cal Thacker MD Work Phone: [facility] Comment on above: Patient reports 07-10-2024 08:11-0400 Body mass index (BMI) [Ratio] 34.49 kg/m2 Cal Thacker MD Work Phone: [facility] 07-10-2024 08:11-0400 Body weight 109.05 kg Cal Thacker MD Work Phone: [facility] 07-10-2024 08:11-0400 Diastolic blood pressure 70 mm[Hg] Cal Thacker MD Work Phone: [facility] 07-10-2024 08:11-0400 Heart rate 94 /min Cal Thacker MD Work Phone: [facility] 07-10-2024 08:11-0400 SaO2% (BldA) [Mass fraction] 94 % Cal Thacker MD Work Phone: [facility] 07-10-2024 08:11-0400 Systolic blood pressure 120 mm[Hg] Cal Thacker MD Work Phone: [facility] 07-10-2024 08:08-0400 Body height 177.8 cm Pam Reddy MD Work Phone: [facility] Comment on above: Patient reports 07-10-2024 08:08-0400 Body mass index (BMI) [Ratio] 34.49 kg/m2 Pam Reddy MD Work Phone: [facility] 07-10-2024 08:08-0400 Body weight 109.05 kg Pam Reddy MD Work Phone: [facility] Comment on above: Fully clothed with shoes on. 07-10-2024 08:08-0400 Diastolic blood pressure 70 mm[Hg] Pam Reddy MD Work Phone: [facility] 07-10-2024 08:08-0400 Heart rate 94 /min Pam Reddy MD Work Phone: [facility] 07-10-2024 08:08-0400 SaO2% (BldA) [Mass fraction] 94 % Pam Reddy MD Work Phone: [facility] 07-10-2024 08:08-0400 Systolic blood pressure 120 mm[Hg] Pam Reddy MD Work Phone: [facility] 06-06-2024 11:31-0400 Body mass index (BMI) [Ratio] 36.03 kg/m2 Carolina Suppan [address] OPERATIONS CLERK.[employer] Work Phone: [facility] 06-06-2024 11:31-0400 Body weight 110.[address] OPERATIONS CLERK.[employer] Work Phone: [facility] 06-06-2024 11:31-0400 Diastolic blood pressure 68 mm[Hg] Carolina Suppan COURT OPERATIONS CLERK.[employer] Work Phone: [facility] 06-06-2024 11:31-0400 Heart rate 71 /min Carolina Suppan [address] OPERATIONS CLERK.[employer] Work Phone: [facility] 06-06-2024 11:31-0400 Respiratory rate 18 /min Carolina Suppan [address] OPERATIONS CLERK.[employer] Work Phone: [facility] 06-06-2024 11:31-0400 SaO2% (BldA) [Mass fraction] 99 % Carolina Suppan COURT OPERATIONS CLERK.[employer] Work Phone: [facility] 06-06-2024 11:31-0400 Systolic blood pressure 144 mm[Hg] Carolina Suppan COURT OPERATIONS CLERK.[employer] Work Phone: [facility] 06-05-2024 16:41-0400 Body mass index (BMI) [Ratio] 36.04 kg/m2 Valerie Gruber COURT OPERATIONS CLERK.[employer] Work Phone: [facility] 06-05-2024 16:41-0400 Body temperature 96.6 [degF] Valerie Gruber COURT OPERATIONS CLERK.[employer] Work Phone: [facility] 06-05-2024 16:41-0400 Body weight 110.[address] OPERATIONS CLERK.[employer] Work Phone: [facility] 06-05-2024 16:41-0400 Diastolic blood pressure 70 mm[Hg] Valerie Gruber COURT OPERATIONS CLERK.[employer] Work Phone: [facility] 06-05-2024 16:41-0400 Heart rate 75 /min Valerie Gruber [address] OPERATIONS CLERK.[employer] Work Phone: [facility] 06-05-2024 16:41-0400 Respiratory rate 19 /min Valerie Grubre [address] OPERATIONS CLERK.[employer] Work Phone: [facility] 06-05-2024 16:41-0400 SaO2% (BldA) [Mass fraction] 97 % Valerie Gruber COURT OPERATIONS CLERK.[employer] Work Phone: [facility] 06-05-2024 16:41-0400 Systolic blood pressure 140 mm[Hg] Valerie Gruber COURT OPERATIONS CLERK.[employer] Work Phone: [facility] 05-06-2024 17:38-0400 Body height 175.[address] OPERATIONS CLERK.[employer] Work Phone: [facility] 05-06-2024 17:38-0400 Body mass index (BMI) [Ratio] 37.95 kg/m2 Corrina Haagen COURT OPERATIONS CLERK.[employer] Work Phone: [facility] 05-06-2024 17:38-0400 Body weight 116.[address] OPERATIONS CLERK.[employer] Work Phone: [facility] 05-06-2024 17:38-0400 Diastolic blood pressure 58 mm[Hg] Corirna Haagen COURT OPERATIONS CLERK.[employer] Work Phone: [facility] 05-06-2024 17:38-0400 Heart rate 62 /min Corrina Ha[address] OPERATIONS CLERK.[employer] Work Phone: [facility] 05-06-2024 17:38-0400 Respiratory rate 14 /min Corrina Haagen [address] OPERATIONS CLERK.[employer] Work Phone: [facility] 05-06-2024 17:38-0400 SaO2% (BldA) [Mass fraction] 89 % Corrina Haagen COURT OPERATIONS CLERK.[employer] Work Phone: [facility] 05-06-2024 17:38-0400 Systolic blood pressure 122 mm[Hg] Corrina Haagen COURT OPERATIONS CLERK.[employer] Work Phone: [facility] 04-08-2024 15:17-0400 Body mass index (BMI) [Ratio] 37.63 kg/m2 Corrina Haagen COURT OPERATIONS CLERK.[employer] Work Phone: [facility] 04-08-2024 15:17-0400 Body weight 115.[address] OPERATIONS CLERK.[employer] Work Phone: [facility] 04-08-2024 14:55-0400 Diastolic blood pressure 58 mm[Hg] Corrina Haagen COURT OPERATIONS CLERK.[employer] Work Phone: [facility] 04-08-2024 14:55-0400 Heart rate 72 /min Corrina Ha[address] OPERATIONS CLERK.[employer] Work Phone: [facility] 04-08-2024 14:55-0400 Respiratory rate 16 /min Corrina [address] OPERATIONS CLERK.[employer] Work Phone: [facility] 04-08-2024 14:55-0400 Systolic blood pressure 102 mm[Hg] Corrina Haagen COURT OPERATIONS CLERK.[employer] Work Phone: [facility] 03-26-2024 16:33-0400 Body height 175.3 cm Guanakito Reno MD Work Phone: [facility] [facility] 03-26-2024 16:33-0400 Body mass index (BMI) [Ratio] 37.07 kg/m2 Guanakito Reno MD Work Phone: [facility] 03-26-2024 16:33-0400 Body weight 113.85 kg Guanakito Reno MD Work Phone: [facility] 03-26-2024 16:33-0400 Diastolic blood pressure 46 mm[Hg] Guanakito Reno MD Work Phone: [facility] 03-26-2024 16:33-0400 Heart rate 86 /min Guanakito Reno MD Work Phone: [facility] 03-26-2024 16:33-0400 SaO2% (BldA) [Mass fraction] 98 % Guanakito Reno MD Work Phone: [facility] 03-26-2024 16:33-0400 Systolic blood pressure 98 mm[Hg] Guanakito Reno MD Work Phone: [facility] 03-25-2024 14:52-0400 Body mass index (BMI) [Ratio] 37.21 kg/m2 Pam Reddy MD Work Phone: [facility] 03-25-2024 14:52-0400 Body weight 114.31 kg Pam Reddy MD Work Phone: [facility] 03-25-2024 14:52-0400 Diastolic blood pressure 69 mm[Hg] Pam Reddy MD Work Phone: [facility] 03-25-2024 14:52-0400 Heart rate 66 /min Pam Reddy MD Work Phone: [facility] 03-25-2024 14:52-0400 SaO2% (BldA) [Mass fraction] 96 % Pam Reddy MD Work Phone: [facility] 03-25-2024 14:52-0400 Systolic blood pressure 116 mm[Hg] Pam Reddy MD Work Phone: [facility] 12-22-2023 14:55-0500 Body temperature 97.81 [degF] Carolina Landeros COURT OPERATIONS CLERKTitusAWS CONSULTANT Work Phone: [facility] 12-22-2023 14:55-0500 Diastolic blood pressure 60 mm[Hg] Carolina Suppan COURT OPERATIONS CLERK.AWS CONSULTANT Work Phone: [facility] 12-22-2023 14:55-0500 Heart rate 76 /min Carolina Suppan COURT OPERATIONS CLERK.AWS CONSULTANT Work Phone: [facility] 12-22-2023 14:55-0500 Respiratory rate 18 /min Carolina Suppan COURT OPERATIONS CLERK.AWS CONSULTANT Work Phone: [facility] 12-22-2023 14:55-0500 SaO2% (BldA) [Mass fraction] 99 % Carolina Suppan COURT OPERATIONS CLERK.AWS CONSULTANT Work Phone: [facility] 12-22-2023 14:55-0500 Systolic blood pressure 122 mm[Hg] Carolina Suppan COURT OPERATIONS CLERK.AWS CONSULTANT Work Phone: [facility] 08-14-2023 13:24-0400 Body height 175.3 cm Guanakito Reno MD Work Phone: [facility] 08-14-2023 13:24-0400 Body weight 120.75 kg Guanakito Reno MD Work Phone: [facility] 08-14-2023 13:24-0400 Diastolic blood pressure 68 mm[Hg] Guanakito Reno MD Work Phone: [facility] 08-14-2023 13:24-0400 Heart rate 59 /min Guanakito Reno MD Work Phone: [facility] 08-14-2023 13:24-0400 SaO2% (BldA) [Mass fraction] 99 % Guanakito Reno MD Work Phone: [facility] 08-14-2023 13:24-0400 Systolic blood pressure 120 mm[Hg] Guanakito Reno MD Work Phone: [facility] 02-13-2023 14:39-0400 Body weight 119.75 kg Pam Reddy MD Work Phone: [facility] 02-13-2023 14:39-0400 Diastolic blood pressure 60 mm[Hg] Pam Reddy MD Work Phone: [facility] 02-13-2023 14:39-0400 Heart rate 78 /min Pam Reddy MD Work Phone: [facility] 02-13-2023 14:39-0400 SaO2% (BldA) [Mass fraction] 96 % Pam Reddy MD Work Phone: [facility] 02-13-2023 14:39-0400 Systolic blood pressure 110 mm[Hg] Pam Reddy MD Work Phone: [facility] 02-06-2023 15:29-0400 Body weight 118.39 kg Guanakito Reno MD Work Phone: [facility] 02-06-2023 15:29-0400 Diastolic blood pressure 58 mm[Hg] Guanakito Reno MD Work Phone: [facility] 02-06-2023 15:29-0400 Heart rate 76 /min Guanakito Reno MD Work Phone: [facility] 02-06-2023 15:29-0400 Respiratory rate 16 /min Guanakito Reno MD Work Phone: [facility] 02-06-2023 15:29-0400 SaO2% (BldA) [Mass fraction] 94 % Guanakito Reno MD Work Phone: [facility] 02-06-2023 15:29-0400 Systolic blood pressure 122 mm[Hg] Guanakito Reno MD Work Phone: [facility] 10-04-2022 10:38-0500 Body height 175.3 cm Alondra Prescott DO Work Phone: [facility] 10-04-2022 10:38-0500 Body weight 117.03 kg Alondra Prescott DO Work Phone: [facility] 10-04-2022 10:38-0500 Diastolic blood pressure 66 mm[Hg] Alondra Prescott DO Work Phone: [facility] 10-04-2022 10:38-0500 Heart rate 57 /min Alondra Prescott DO Work Phone: [facility] 10-04-2022 10:38-0500 SaO2% (BldA) [Mass fraction] 100 % Alondra Prescott DO Work Phone: [facility] 10-04-2022 10:38-0500 Systolic blood pressure 122 mm[Hg] Alondra Prescott DO Work Phone: [facility] 08-15-2022 14:50-0400 Body height 175.3 cm Pam Reddy MD Work Phone: [facility] 08-15-2022 14:50-0400 Body weight 119.3 kg Pam Reddy MD Work Phone: [facility] 08-15-2022 14:50-0400 Diastolic blood pressure 62 mm[Hg] Pam Reddy MD Work Phone: [facility] 08-15-2022 14:50-0400 Heart rate 58 /min Pam Reddy MD Work Phone: [facility] 08-15-2022 14:50-0400 Respiratory rate 18 /min Pam Reddy MD Work Phone: [facility] 08-15-2022 14:50-0400 SaO2% (BldA) [Mass fraction] 98 % Pam Reddy MD Work Phone: [facility] 08-15-2022 14:50-0400 Systolic blood pressure 114 mm[Hg] Pam Reddy MD Work Phone: [facility] 01-19-2022 15:14-0400 Body weight 121.11 kg Guanakito Reno MD Work Phone: [facility] 01-19-2022 15:14-0400 Diastolic blood pressure 68 mm[Hg] Guanakito Reno MD Work Phone: [facility] 01-19-2022 15:14-0400 Heart rate 60 /min Guanakito Reno MD Work Phone: [facility] 01-19-2022 15:14-0400 Systolic blood pressure 124 mm[Hg] Guanakito Reno MD Work Phone: [facility] Encounters Encounter Date Encounter Type Care Provider Facility Start: 05-13-2025 ambulatory [facility] Facility:[facility] Start: 05-08-2025 ambulatory [facility] Facility:[facility] Start: 05-06-2025 ambulatory [facility] Facility:[facility] Start: 05-02-2025 End: 05-02-[address] Burt Zamora MD -[facility] Start: 05-02-2025 End: 05-02-[address] Guanakito Reno MD Work Phone: -[facility] Start: 05-01-2025 ambulatory [facility] Facility:[facility] Start: 05-01-[address] Josafat juarez MD -[facility] Start: 04-29-2025 ambulatory [facility] Facility:[facility] Start: 04-29-[address] Josafat juarez MD -[facility] Start: 04-24-2025 ambulatory [facility] Facility:[facility] Start: 04-24-[address] Josafat juarez MD -[facility] Start: 04-17-2025 ambulatory Bianka Espino ty:[facility] Start: 04-17-[address] Bianka Gonzalez MD -[facility] Start: 04-15-2025 End: 04-15-2025 Telephone encounter Twin Cole [facility] Ambulatory Telemanagement Comment on above: Anticoagulation Tele phone Fu (Home INR result) Start: 04-14-2025 End: 04-14-2025 Telephone encounter Guanakito Reno MD Work Phone: [facility] [place] Comment on above: Patient Question Start: 04-14-[address] [facility] Start: 04-14-[address] Josafat García MD -Physical Therapy Work Phone: Start: 04-08-2025 End: 04-08-[address] OPERATIONS CLERK.[employer] Work Phone: [facility] Comment on above: Refill Request Start: 03-28-2025 End: 03-28-2025 Telephone encounter Guanakito Reno MD Work Phone: [facility] [place] Comment on above: Faxed to Pepe Castellon Start: 03-24-2025 End: 03-24-2025 Telephone encounter Alejandro Molina [facility] Ambulatory Telemanagement Comment on above: Anticoagulation Tele phone Fu (Home INR Result ) Start: 03-07-2025 End: 03-07-[address] Josafat García MD -[facility] Work Phone: Start: 03-07-2025 End: 03-07-2025 ambulatory Josafat García [facility] Start: 03-06-2025 End: 03-06-2025 ambulatory CAROLINA LANDEROS Facility:[facility] Start: 03-05-2025 End: 03-06-2025 Emergency department patient visit KEDAR HERNANDEZ Facility:[facility] Start: 02-20-2025 End: 02-20-2025 Telephone encounter Jimmy Carrizales [facility] Ambulatory Telemanagement Comment on above: Anticoagulation Tele phone Fu (Home INR) Start: 01-31-2025 End: 01-31-2025 Telephone encounter Kamran Ayon [facility] Ambulatory Telemanagement Comment on above: Anticoagulation Tele phone Fu (INR Home Test Result) Start: 01-23-2025 End: 03-25-2025 Follow-up encounter Carolina Landeros APRN.[employer] [facility] Start: 01-21-2025 End: 01-21-2025 ambulatory CAROLINA LANDEROS Facility:[facility] Start: 01-21-2025 End: 01-21-2025 Office outpatient visit 25 minutes Carolina Landeros APRN.[employer] Work Phone: [facility] Comment on above: Hyperlipidemia, mixe d [...] disease, stage IV (HCC); 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 pharmacist (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; Obesity, Class II, BMI 35-39.9; Viral conjunctivitis; Seasonal allergic rhinitis, unspecified trigger; Bilateral impacted cerumen Start: 01-08-2025 End: 01-15-2025 Telephone encounter Ruthie Cuevas [facility] Ambulatory Telemanagement Comment on above: Anticoagulation Foll ow Up (Home INR result ) Start: 01-07-2025 End: 01-08-2025 Refill Corrina Lennon APRN.CNP Work Phone: [facility] Comment on above: Refill Request Start: 12-30-2024 End: 12-30-2024 Telephone encounter Twin Cole [facility] Ambulatory Telemanagement Comment on above: Anticoagulation Tele phone Fu (Home INR result) Start: 12-11-2024 End: 12-11-2024 Telephone encounter Jimmy Carrizales [facility] Ambulatory Telemanagement Comment on above: Anticoagulation Tele phone Fu (Home INR) Start: 11-26-2024 End: 11-26-2024 Telephone encounter Twin Cole [facility] Ambulatory Telemanagement Comment on above: Anticoagulation Tele phone Fu (Home INR result) Start: 10-28-2024 End: 10-28-2024 Telephone encounter Alejandro Molina [facility] Ambulatory Telemanagement Comment on above: Anticoagulation Tele phone Fu (Home INR Result ) Start: 10-21-2024 End: 10-21-2024 Telephone encounter Guanakito Reno MD Work Phone: [facility] Comment on above: Patient Update; Rozina ent Question Start: 10-01-2024 End: 10-01-2024 Telephone encounter Twin Cole [facility] Ambulatory Telemanagement Comment on above: Anticoagulation Tele phone Fu (Home INR result) Start: 08-26-2024 End: 08-26-2024 Telephone encounter Alejandro Molina [facility] Ambulatory Telemanagement Comment on above: Anticoagulation Tele phone Fu (Home INR Result ) Start: 08-19-2024 End: 08-19-2024 ambulatory Melania Galindo RN Title I Director Management Comment on above: QI SMITH RN ( Medication Adherence Review per Request of Payor ) Start: 08-16-2024 End: 08-16-2024 Telephone encounter Jimmy [facility]ARD[facility]O [facility] Start: 08-06-2024 End: 08-06-2024 Office outpatient new 45 minutes Laura Iraheta MD Work Phone: [facility] Comment on above: Bilateral carotid ar jeanne stenosis (Primary Dx); History of carotid endarterectomy Start: 08-06-2024 End: 08-07-2024 ambulatory LAURA IRAHETA Facility[facility] Start: 07-30-2024 End: 07-30-2024 ambulatory Josselyn Mayer APRN.[employer] Work Phone: [facility] Start: 07-30-2024 End: 08-01-2024 Telephone encounter Josselyn Mayer APRN.[employer] Work Phone: [facility] [place] Comment on above: Adoption Services Manager - O ther Start: 07-25-2024 End: 07-26-2024 Telephone encounter Jimmy Carrizales [facility] Ambulatory Telemanagement Comment on above: Anticoagulation (Pat ient update) Start: 07-23-2024 End: 07-23-2024 ambulatory PAM REDDY [facility] Start: 07-23-2024 End: 07-23-[address] (I-Stat) [facility] Start: 07-23-2024 End: 07-23-2024 Subsequent hospital visit by physician [facility] (I-Stat) RADIO CT [facility] Comment on above: Nonrheumatic aortic valve stenosis [I35.0] Start: 07-22-2024 End: 07-22-2024 ambulatory VALERIE PIÑA Facility:[facility] Start: 07-15-2024 End: 07-15-2024 Orders Only Valerie Piña COURT OPERATIONS CLERK.PARK [employer] Work Phone: [facility] Comment on above: Paroxysmal atrial fi brillation (HCC) (Primary Dx); Aortic valve stenosis, etiology of cardiac valve disease unspecified Nonrheumatic aortic valve stenosis (Primary Dx); Paroxysmal atrial fibrillation (HCC) Patient Update Results Start: 07-12-2024 End: 07-12-2024 Telephone encounter Guanakito Reno MD Work Phone: [facility] [place] Start: 07-12-2024 End: 07-12-2024 ambulatory JOSSELYN MAYER Facility:[facility] Start: 07-12-2024 End: 07-15-2024 Patient encounter procedure Guanakito Reno MD Work Phone: [facility] Comment on above: Essential hypertensi on [...] disease, stage IV (HCC); Mixed dementia (HCC); 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 pharmacist (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; Need for vaccination Essential hypertensi on (Primary Dx) Start: 07-10-2024 ambulatory JOSSELYN MAYER Facili ty:[facility] Start: 07-10-2024 End: 07-10-2024 Subsequent hospital visit by physician Ekg/Holter/Event Monitor [facility] Comment on above: Nonrheumatic aortic valve stenosis [I35.0] Start: 07-10-2024 End: 07-10-2024 Patient encounter procedure Cal Thacker MD Work Phone: [facility] Comment on above: Severe [...] encounter status Pam Reddy MD Work Phone: [facility] Work Phone: Start: 07-10-2024 Encounter for preprocedural cardiovascular examination PAM REDDY [facility] Start: 07-10-2024 End: 07-10-2024 ambulatory GUANAKITO RENO Facility:[facility] Start: 07-05-2024 End: 07-05-2024 Telephone encounter Annamarie Garcia [facility] Comment on above: Anticoagulation Tele phone Fu Start: 2024 End: 2024 Telephone encounter Guanakito Reno MD Work Phone: [facility]ology [facility] Start: 06-18-2024 End: 06-18-2024 Telephone encounter Jimmy Carrizales [facility] Ambulatory Telemanagement Comment on above: Anticoagulation Tele phone Fu (Home INR) Start: 06-06-2024 End: 06-06-2024 ambulatory CAROLINA LANDEROS Facility:[facility] Start: 06-06-2024 End: 06-06-2024 Office outpatient visit 15 minutes Carolina Landeros APRN.[employer] Work Phone: [facility] [place] Comment on above: Aortic valve stenosi s, etiology of cardiac valve disease unspecified (Primary Dx); Hypertensive kidney disease with stage 3b chronic kidney disease (HCC); Paroxysmal atrial fibrillation (HCC); Benign prostatic hyperplasia without lower urinary tract symptoms; Anemia, unspecified type Start: 06-05-2024 End: 06-05-2024 ambulatory GUANAKITO RENO Facility:[facility] Start: 06-05-2024 End: 06-05-2024 Patient encounter procedure Valerie Gruber APRN.[employer] Work Phone: [place] [facility] Comment on above: Blood pressure check (Primary Dx); Leg swelling Start: 06-05-2024 End: 06-05-2024 Patient encounter status Valerie Gruber APRN.[employer] Work Phone: [facility] Work Phone: Start: 06-03-2024 End: 06-05-2024 ambulatory Guanakito Reno MD Work Phone: [facility] [place] Comment on above: Water pill/ kidney d r # Start: 05-20-2024 Telephone encounter Josselyn Mayer COURT OPERATIONS CLERK.[employer] Work Phone: [facility] [place] Comment on above: Adoption Services Manager - O ther Results Start: 05-17-2024 Telephone encounter Dorothy Sainz [facility] Comment on above: Anticoagulation Tele phone Fu Start: 05-06-2024 End: 05-06-2024 Office outpatient visit 15 minutes Corrina Lennon APRN.[employer] Work Phone: [facility] [place] Comment on above: Essential hypertensi on (Primary Dx); Hypertensive kidney disease with stage 3 chronic kidney disease, unspecified whether stage 3a or 3b CKD (HCC); Anemia, unspecified type Start: 05-02-2024 End: 05-02-2024 Subsequent hospital visit by physician [facility] Work Phone: Radiology Comment on above: Renal insufficiency [N28.9] Start: 04-24-2024 Telephone encounter [facility] Ambulatory Telemanagement Comment on above: Anticoagulation Tele phone Fu (Home INR) Start: 04-19-2024 Telephone encounter Guanakito Reno MD Work Phone: [facility] [place] Comment on above: Results Start: 04-08-2024 End: 04-08-2024 Office outpatient visit 25 minutes Corrina Lennon APRN.[employer] Work Phone: [facility] [place] Comment on above: Essential hypertensi on (Primary [...] Medicine [place] Comment on above: Results Start: 04-04-2024 Telephone encounter Jimmy Carrizales [facility] Ambulatory Telemanagement Comment on above: Anticoagulation Tele phone Fu (Home INR) Start: 03-26-2024 End: 03-26-2024 Patient encounter procedure Guanakito Reno MD Work Phone: [facility] [place] Comment on above: Essential hypertensi on [...] or 3b CKD (HCC); Mixed dementia (HCC); FPC (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; Obesity, Class II, [...] payor) Start: 03-07-2024 Telephone encounter Jimmy Carrizales [facility] Ambulatory Telemanagement Comment on above: Anticoagulation Tele phone Fu Start: 02-14-2024 Telephone encounter [facility] Ambulatory Telemanagement Comment on above: Anticoagulation Tele phone Fu (Home INR results ) Start: 01-17-2024 Refill Guanakito Reno MD Work Phone: [facility] [place] Comment on above: Refill Request requesting medicatio n on list Start: 01-15-2024 Telephone encounter Alejandro [facility] Ambulatory Telemanagement Comment on above: Anticoagulation Tele phone Fu (Home INR Result ) Start: 12-22-2023 End: 12-22-2023 Office outpatient visit 15 minutes Carolina Aleisha Margarita REA.AWS CONSULTANT Work Phone: [facility] [place] Comment on above: Abrasion of arm, lef t, initial encounter (Primary Dx); Chronic insomnia Start: 12-21-2023 ambulatory Guanakito Reno MD Work Phone: [facility] [place] Comment on above: skin laceration Start: 12-21-2023 Telephone encounter Jimmy Carrizales [facility] Ambulatory Telemanagement Comment on above: Anticoagulation Tele phone Fu (Home INR) Start: 12-04-2023 Telephone encounter Alejandro Ulysses R [facility] Ambulatory Telemanagement Comment on above: Anticoagulation Tele phone Fu (Home INR Result ) Start: 09-20-2023 Telephone encounter Ruthie Cuevas [facility] Ambulatory Telemanagement Comment on above: Anticoagulation Tele phone Fu (Home INR ) Start: 09-05-2023 ambulatory Mouna Vallecillo RN Am bul[facility] Care Management Comment on above: QI SMITH RN ( Medication Adherence review per request of payer) Start: 08-22-2023 Telephone encounter Twin Kelsey [facility] Ambulatory Telemanagement Comment on above: Anticoagulation Tele phone Fu (Home INR result) Start: 08-16-2023 Telephone encounter Guanakito Reno MD Work Phone: [facility] [place] Comment on above: Results Start: 08-15-2023 Telephone encounter Guanakito Reno MD Work Phone: [facility] [place] Comment on above: Results Start: 08-14-2023 End: 08-14-2023 Patient encounter procedure Guanakito Reno MD Work Phone: [facility] [place] Comment on above: Onychomycosis (Prima ry Dx); [...] disease (HCC) Start: 07-26-2023 Telephone encounter Ruthie Cuevas [facility] Ambulatory Telemanagement Comment on above: Anticoagulation Tele phone Fu (Home INR result ) Start: 07-04-2023 Refill Guanakito Reno MD Work Phone: [facility] [place] Comment on above: Refill Request Start: 2023 ambulatory Lizette Cardenas RN [facility] [place] Comment on above: QI SMITH RN ( Medication Adherence review per request of payer) Start: 05-22-2023 Telephone encounter Alejandro Molina [facility] Ambulatory Telemanagement Comment on above: Anticoagulation Tele phone Fu (Home INR Result ) Start: 04-24-2023 Telephone encounter Alejandro [facility] Ambulatory Telemanagement Comment on above: Anticoagulation Tele phone Fu (Home INR Result ) Start: 04-19-2023 Refill Guanakito Reno MD Work Phone: [facility] [place] Comment on above: Refill Request Start: 03-28-2023 Telephone encounter Twin Cole [facility] Ambulatory Telemanagement Comment on above: Anticoagulation Tele phone Fu (Home INR result) Start: 02-13-2023 End: 02-13-2023 Patient encounter procedure Pam eRddy MD Work Phone: Cardiology Comment on above: Syncope, unspecified syncope type (Primary Dx); Aortic valve disorder Start: 02-06-2023 End: 02-06-2023 Patient encounter procedure Guanakito Reno MD Work Phone: [facility] Comment on above: Essential hypertensi on [...] 01-16-2023 Refill Guanakito Reno MD Work Phone: [facility] [place] Comment on above: Refill Request Start: 01-09-2023 [...] ) Start: 11-18-2022 Telephone encounter Kamran Ayon [facility] Ambulatory Telemanagement Comment on above: Anticoagulation Tele phone Fu Start: 11-04-2022 Telephone encounter Kamran Ayon [facility] Ambulatory Telemanagement Comment on above: Anticoagulation Tele phone Fu (INR Home Test Result) Start: 11-01-2022 Telephone encounter Twin Kelsey [facility] Ambulatory Telemanagement Comment on [...] 09-23-2022 Refill Guanakito Reno MD Work Phone: [facility] [place] Comment on above: Orders; Refill Reque st Start: 09-21-2022 Telephone encounter Ruthie Cuevas [facility] Ambulatory Telemanagement Comment on above: Anticoagulation Tele phone Fu (Home INR result expected) Start: 09-07-2022 ambulatory Lizette Cardenas RN [facility] [place] Comment on above: QI SMITH RN ( Medication Adherence review at request of payer) Start: 08-22-2022 Telephone encounter Alejandro Molina [facility] Ambulatory Telemanagement Comment on above: Anticoagulation (INR result) Start: 08-15-2022 End: 08-15-2022 Patient encounter procedure Pam Reddy MD Work Phone: Cardiology Comment on above: Obesity, Class II, B ME 35-39.9 (Primary Dx); Paroxysmal atrial fibrillation (HCC); Nonrheumatic aortic valve stenosis; Aortic valve disorder Start: 08-01-2022 Telephone encounter [facility]jandro [facility] Ambulatory Telemanagement Comment on above: Anticoagulation Tele phone Fu (Home INR Result) Start: 07-22-2022 Refill Guanakito Reno MD Work Phone: [facility] [place] Comment on above: Refill Request Start: 2022 Telephone encounter Alejandro Molina R [facility] Ambulatory Telemanagement Comment on above: Anticoagulation (INR result ) Start: 06-14-2022 ambulatory [facility] [place] Comment on above: Population Health Na vigation Outreach ([facility] GENERAL care gaps) Start: 06-06-2022 Telephone encounter Alejandro Molina [facility] Ambulatory Telemanagement Comment on above: Anticoagulation (Gabrielle e INR) Start: 05-19-2022 Refill Guanakito Reno MD [facility] Comment on above: Refill Request Start: 05-16-2022 Telephone encounter Alejandro Molina [facility] Ambulatory Telemanagement Comment on above: Anticoagulation Tele phone Fu (Home INR Result) Start: 04-25-2022 Telephone encounter Val Oliver [facility] Comment on above: Anticoagulation Tele phone Fu (Home INR ) Start: 04-04-2022 Telephone encounter Alejandro Smith [facility] Ambulatory Telemanagement Comment on above: Anticoagulation Tele phone Fu (Home INR Result) Start: 03-23-2022 Telephone encounter Ruthie Smith [facility] Ambulatory Telemanagement Comment on above: Anticoagulation Tele phone Fu (Home INR result expected) Start: 03-16-2022 Telephone encounter Alondra Prescott DO Work Phone: Vascular Surgery Comment on above: Appointment (testing needed?) Start: 03-09-2022 Telephone encounter Ruthie Smith [facility] Ambulatory Telemanagement Comment on above: Anticoagulation Tele phone Fu (Home INR result ) Start: 02-17-2022 Telephone encounter Jazmynrosamaria Garcia [facility] Pharm[facility] Ambulatory Telemanagement Comment on above: Anticoagulation Tele phone Fu Start: 02-08-2022 Telephone encounter Twin Cole [facility] harmacy Ambulatory Telemanagement Comment on above: Anticoagulation Tele phone Fu (Home INR result) Start: 01-25-2022 Telephone encounter Twin Cole RPbobbi P harmacy Ambulatory Telemanagement Comment on above: Anticoagulation Tele phone Fu (Home INR result) Start: 01-19-2022 End: 01-19-2022 Patient encounter procedure Guanakito Reno MD Work Phone: [facility] Comment on above: Essential hypertensi on [...] CKD (HCC) Start: 01-13-2022 Telephone encounter Jazmyn Jose SURESH h Pharmacy Ambulatory Telemanagement Comment on above: Anticoagulation Tele phone Fu Start: 06-07-2018 [facility] Facility :[facility] Start: 11-24-2017 End: 11-24-2017 [facility] Facility:[facility] Procedures Date Procedure Procedure Detail Performing Clinician Start: 07-12-2024 [employer] COVI D-19 VACCINE AGE 12+ YR (COMIRNATY) [...] Velasquez with bovine patch angioplasty, 04/17/2014 @ [facility] History of carotid endarterectomy History of carotid endarterectomy Guanakito Reno MD Work Phone: History of carotid endarterectomy History of carotid endarterectomy Laura Iraheta MD Work Phone: Plan of Treatment Date Care Activity Detail Author Start: 04-22-2031 Urine microalbumin profile [facility] Start: 01-21-2026 Diabetic foot examination Diabetic Foot Exam [facility] Start: 01-21-2026 Hepatitis B surface antibody level LDL Cholesterol [facility] Start: 08-06-2025 End: 09-05-2025 US Carotid arteries - bilateral US CAROTID BILATERAL Radiology Routine Bilateral carotid artery stenosis History of carotid endarterectomy Expected: 08/06/2025 (Approximate), Expires: 09/05/2025 [facility] Work Phone: Comment on above: Expected: 08/06/2025 (Approximate), Expi res: 09/05/2025 Start: 07-23-2025 End: 07-23-2025 Patient encounter procedure 07/23/2025 3:20 PM EDT Office Visit [facility] [place] [address] [place] [place] [address] Guanakito Reno MD [address] [place] [address] 6 month exam [facility] [place] Comment on above: 6 month exam Start: 07-23-2025 Hemoglobin A1c measurement HbA1C [facility] Start: 07-12-2025 Covid-19 Vaccine ( season) Covid-19 Vaccine () [facility] Comment on above: Postponed from 01/09/2025 (Declined at t his time) Start: 07-12-2025 Hepatitis B surface antibody level LDL Cholesterol [facility] Start: 06-16-2025 Influenza vaccination Influenza Vaccine (#1) [facility] Start: 05-06-2025 Annual PCP Team Chronic Disease Visit Annual PCP Team Chronic Disease Visit [facility] Start: 05-06-2025 BP Controlled (<130/80) BP Controlled (<130/80) [facility] in Start: 05-02-2025 Plain X-ray of shoulder Shoulder min 2 Views [facility] Start: 05-02-2025 XR Shoulder GE 2 Views [facility] Start: 04-19-2025 Complete blood count Hemoglobin/Hematocrit [facility] Start: 04-19-2025 Creatinine measurement Serum Creatinine [facility] Start: 04-08-2025 Annual PCP Team Chronic Disease Visit Annual PCP Team Chronic Disease Visit [facility] Start: 04-08-2025 BP Controlled (<130/80) BP Controlled (<130/80) [facility] in Start: 04-04-2025 Complete blood count Hemoglobin/Hematocrit [facility] Start: 04-04-2025 Creatinine measurement Serum Creatinine [facility] Start: 03-26-2025 Annual PCP Team Chronic Disease Visit Annual PCP Team Chronic Disease Visit [facility] Start: 03-26-2025 BP Controlled (<130/80) BP Controlled (<130/80) [facility] in Start: 03-26-2025 Covid-19 Vaccine ( season) Covid-19 Vaccine () [facility] Comment on above: Postponed from 12/14/2023 (Declined at t his time) Start: 03-26-2025 Shingrix Vaccine (1 of 2) Shingrix Vaccine (1 of 2) [facility] Comment on above: Postponed from 1993 (Declined at t his time) Start: 03-25-2025 BP Controlled (<130/80) BP Controlled (<130/80) [facility] Start: 03-25-2025 Complete blood count Hemoglobin/Hematocrit [facility] Start: 03-25-2025 Creatinine measurement Serum Creatinine [facility] Start: 01-21-2025 End: 01-21-2025 Patient encounter procedure 01/21/2025 3:40 PM EDT Office Visit [facility] [place] [address] [place] [address] Carolina Landeros APRN.[employer] [address] [place], [place] [id number] 6 month follow up [facility] [place] Comment on above: 6 month follow up Start: 01-21-2025 End: 04-22-2025 CBC W Auto Differential panel - Blood [facility] Comment on above: Expected: 01/21/2025, Expires: Start: 01-21-2025 End: 04-22-2025 Cobalamin (Vitamin B12) [Mass/volume] in Serum or Plasma [facility] Comment on above: Expected: 01/21/2025, Expires: Start: 01-21-2025 End: 04-22-2025 Comprehensive metabolic 2000 panel - Serum or Plasma [facility] Work Phone: Comment on above: Expected: 01/21/2025, Expires: Start: 01-21-2025 End: 04-22-2025 Hemoglobin A1c in Blood [facility] Comment on above: Expected: 01/21/2025, Expires: Start: 01-21-2025 End: 04-22-2025 LIPID PANEL, NONFASTING [facility] Comment on above: Expected: 01/21/2025, Expires: Start: 01-21-2025 End: 04-22-2025 Magnesium [Mass/volume] in Serum or Plasma [facility] Comment on above: Expected: 01/21/2025, Expires: Start: 01-13-2025 End: 01-13-2025 Patient encounter procedure 01/13/2025 10:40 AM EDT Office Visit [facility] [place] [address] [place] [address] Guanakito Reno MD [address] [place] [address] 6 month follow up [facility] [place] Comment on above: 6 month follow up Start: 01-09-2025 Hemoglobin A1c measurement HbA1C [facility] Start: 12-21-2024 BP Controlled (<130/80) BP Controlled (<130/80) [facility] Start: 10-16-2024 Advance Directive Discussion Advance Directive Discussion [facility] Start: 10-16-2024 Medicare Advantage Annual Wellness Visit Medicare Advantage Annual Wellness Visit [facility] Start: 10-04-2024 Hemoglobin A1c measurement HbA1C [facility] Start: 08-14-2024 3 comp foot exam completed Diabetic Foot Exam [facility] Start: 08-14-2024 Annual PCP Team Chronic Disease Visit Annual PCP Team Chronic Disease Visit [facility] Start: 08-14-2024 BP Controlled (<130/80) BP Controlled (<130/80) [facility] inic Start: 08-14-2024 Complete blood count Hemoglobin/Hematocrit [facility] Start: 08-14-2024 Creatinine measurement Serum Creatinine [facility] Start: 08-14-2024 Diabetic foot examination Diabetic Foot Exam [facility] Start: 08-14-2024 Hemoglobin/Hematocrit Hemoglobin/Hematocrit [facility] Start: 08-14-2024 Hepatitis B surface antibody level LDL Cholesterol [facility] Start: 08-14-2024 Hepatitis B Vaccine (1 of 3 - Risk 3-dose series) Hepatitis B Vaccine (1 of 3 - Risk 3-dose series) [facility] Comment on above: Postponed from 2003 (Declined at t his time) Start: 08-14-2024 RSV Vaccine (1 - 1-dose 60+ series) RSV Vaccine (1 - 1-dose 60+ series) [facility] Comment on above: Postponed from 2003 (Declined at t his time) Start: 08-14-2024 RSV Vaccine (1 - 1-dose 75+ series) RSV Vaccine (1 - 1-dose 75+ series) [facility] Comment on above: Postponed from 2018 (Declined at t his time) Start: 08-14-2024 Serum Creatinine Serum Creatinine [facility] Start: 08-06-2024 End: 08-06-2024 Patient encounter procedure 08/06/2024 1:00 PM EDT Office Visit [facility] [address] [place], [place] [id number] Laura Iraheta MD [address] [facility] [address] [place], [place] [phone] Referral from Josselyn Mayer - carotid stenosis 05/02/24 Carotid US [facility] Comment on above: Referral from Josselyn Mayer - carotid s tenosis 05/02/24 Carotid US Start: 07-29-2024 End: 07-29-2024 ambulatory 07/29/2024 11:15 AM EDT Results Only [facility] [address] [place] [address] [facility] Start: 07-23-2024 End: 07-23-2024 Admission to same day surgery center 07/23/2024 10:00 AM EDT - 07/23/2024 11:30 AM EDT Surgery [facility] [employer] [employer] [address] [place] [address] Pam Reddy MD [address], [address] [place], [place] [id number] CORONARY CATH RIGHT/LEFT HEART ANGIO INTRAPROCEDURAL INJECT IMAGING SUPERVISIO/INTERPRETATIO N [facility] Comment on above: CORONARY CATH RIGHT/LEFT HEART ANGIO INT RAPROCEDURAL INJECT IMAGING SUPERVISIO/INTERPRETATION Start: 07-23-2024 End: 07-23-2024 R & l hrt cath winjx hrt art& l ventr img CORONARY CATH RIGHT/LEFT HEART ANGIO INTRAPROCEDURAL INJECT IMAGING SUPERVISIO/INTERPRETATIO N Valvular heart disease 07/23/2024 10:00 AM EDT [facility] Start: 07-23-2024 Subsequent hospital visit by physician 07/23/2024 10:00 AM EDT Hospital Encounter [facility] [address] [place] [address] Pam Reddy MD [address], [address] [place] [address] Valvular heart disease [I38] [facility] [employer] [employer] Comment on above: Valvular heart disease [I38] Start: 07-23-2024 End: 07-23-2024 Patient encounter procedure 07/23/2024 7:30 AM EDT Appointment RADIO [facility] SC[facility] [address] [place] [address] 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.0]; Encounter for preprocedural cardiovascular examination [Z01.810] [facility]IO [facility] Comment on above: 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.0]; Encounter for preprocedural cardiovascular examination [Z01.810] Start: 07-16-2024 End: 07-16-2024 Patient encounter procedure [facility] Comment on above: Referral from Josselyn Mayer - carotid s tenosis Referral from Effie Mayer - carotid stenosis 05/02/24 Carotid US Start: 07-15-2024 End: 10-14-2024 PT panel - Platelet poor plasma by Coagulation assay PROTHROMBIN TIME Lab Routine Nonrheumatic aortic valve stenosis Paroxysmal atrial fibrillation (HCC) Expected: 07/15/2024, Expires: 10/14/2024 [facility] Work Phone: Comment on above: Expected: 07/15/2024, Expires: 4 Start: 07-12-2024 End: 10-11-2024 CBC W Auto Differential panel - Blood [facility] Comment on above: Expected: 07/12/2024, Expires: Start: 07-12-2024 End: 10-11-2024 Comprehensive metabolic 2000 panel - Serum or Plasma [facility] Comment on above: Expected: 07/12/2024, Expires: Start: 07-12-2024 End: 10-11-2024 Hemoglobin A1c in Blood [facility] Work Phone: Comment on above: Expected: 07/12/2024, Expires: Start: 07-12-2024 End: 10-11-2024 LIPID PANEL, NONFASTING [facility] Comment on above: Expected: 07/12/2024, Expires: Start: 07-12-2024 End: 07-12-2024 Patient encounter procedure 07/12/2024 11:20 AM EDT Office Visit [facility] [place] [address] [place] [id number] Guanakito Reno MD [address] [facility] [address] 2 month follow up- stool sample,kidney and meds [facility] [place] Comment on above: 2 month follow up- stool sample,kidney a nd meds Start: 07-10-2024 End: 10-09-2024 Basic metabolic 2000 panel - Serum or Plasma BASIC METABOLIC PANEL Lab Routine Nonrheumatic aortic valve stenosis Expected: 07/10/2024, Expires: 10/09/2024 [facility] Comment on above: Expected: 07/10/2024, Expires: Start: 07-10-2024 End: 10-09-2024 CBC panel - Blood by Automated count COMPLETE BLOOD COUNT Lab Routine Nonrheumatic aortic valve stenosis Expected: 07/10/2024, Expires: 10/09/2024 [facility] Comment on above: Expected: 07/10/2024, Expires: Start: 07-10-2024 End: 10-09-2024 Natriuretic peptide.B prohormone N-Terminal [Mass/volume] in Serum or Plasma NT PRO BNP Lab Routine Nonrheumatic aortic valve stenosis Dyspnea on exertion Expected: 07/10/2024, Expires: 10/09/2024 [facility] Comment on above: Expected: 07/10/2024, Expires: 4 Start: 07-10-2024 End: 10-09-2024 PT panel - Platelet poor plasma by Coagulation assay PROTHROMBIN TIME Lab Routine Nonrheumatic aortic valve stenosis Expected: 07/10/2024, Expires: 10/09/2024 [facility] Comment on above: Expected: 07/10/2024, Expires: Start: 07-10-2024 End: 07-10-2024 Patient encounter procedure [facility] Comment on above: [facility]ve Clinic- Initial Visit- 5M Walk,EKG ,KCCQ Start: 06-16-2024 Covid-19 Vaccine ( season) Covid-19 Vaccine () [facility] Start: 06-16-2024 Covid-19 Vaccine ( season) Covid-19 Vaccine () [facility] Start: 06-16-2024 Influenza vaccination Influenza Vaccine (#1) [facility] Start: 06-06-2024 End: 06-06-2024 Patient encounter procedure 06/06/2024 11:20 AM EDT Office Visit Family [facility] [place] [address] [place] [address] Carolina Landeros, COURT OPERATIONS CLERK.[employer] [address] [place] [address] Urgent care follow up [facility] [place] Comment on above: Urgent care follow up Start: 05-06-2024 End: 05-06-2024 Patient encounter procedure 05/06/2024 5:40 PM EDT Office Visit [facility] [place] [address] [place] [address] Corrina Lennon, COURT OPERATIONS CLERK.[employer] [address] [place] [address] 1 month follow up [facility] [place] Comment on above: 1 month follow up Start: 05-02-2024 End: 05-02-2024 Patient encounter procedure Radiology Comment on above: Renal insufficiency [N28.9] History of carotid e ndarterectomy [Z98.890] Syncope, unspecified syncope type [R55]; Aortic valve disorder [I35.9] Start: 04-08-2024 End: 04-08-2024 Patient encounter procedure 04/08/2024 3:00 PM EDT Office Visit Family Medicine [place] [address] [facility] [place] [address] Corrina Lennon APRN.[employer] [address] [place] [address] 2 w f/u [facility] [place] Comment on above: 2 w f/u Start: 04-08-2024 End: 03-25-2025 Echocardiography ECHO Cardiology Routine Syncope, unspecified syncope type Aortic valve disorder Expected: 04/08/2024, Expires: 03/25/2025 [facility] Comment on above: Expected: 04/08/2024, Expires: 5 Start: 04-05-2024 End: 07-05-2024 Basic metabolic 2000 panel - Serum or Plasma BASIC METABOLIC PANEL Lab Routine CKD (chronic kidney disease) stage 4, 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/min (HCC) Anemia, unspecified type Expected: 04/05/2024, Expires: 07/05/2024 [facility] Comment on above: Expected: 04/05/2024, Expires: 4 Start: 04-05-2024 End: 07-05-2024 CBC W Auto Differential panel - Blood COMPLETE BLOOD COUNT AND DIFFERENTIAL Lab Routine CKD (chronic kidney disease) stage 4, 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/min (HCC) Anemia, unspecified type Expected: 04/05/2024, Expires: 07/05/2024 [facility] Comment on above: Expected: 04/05/2024, Expires: 4 Start: 03-26-2024 End: 03-26-2024 Patient encounter procedure 03/26/2024 4:40 PM EDT Office Visit [facility] [place] [address] [facility] [place] [address] Guanakito Reno MD [address] [place] [address] 3 month f/u [facility] [place] Comment on above: 3 month f/u Start: 03-26-2024 End: 06-25-2024 Basic metabolic 2000 panel - Serum or Plasma BASIC METABOLIC PANEL Lab Routine Renal insufficiency Expected: 03/26/2024, Expires: 06/25/2024 [facility] Comment on above: Expected: 03/26/2024, Expires: 4 Start: 03-26-2024 End: 03-26-2025 CBC W Auto Differential panel - Blood COMPLETE BLOOD COUNT AND DIFFERENTIAL Lab Routine Anemia, unspecified type Expected: 03/26/2024, Expires: 03/26/2025 [facility] Comment on above: Expected: 03/26/2024, Expires: Start: 03-26-2024 End: 03-26-2025 Cobalamin (Vitamin B12) [Mass/volume] in Serum or Plasma VITAMIN B12 Lab Routine Anemia, unspecified type Expected: 03/26/2024, Expires: 03/26/2025 [facility] Comment on above: Expected: 03/26/2024, Expires: Start: 03-26-2024 End: 03-26-2025 Ferritin [Mass/volume] in Serum or Plasma FERRITIN Lab Routine Anemia, unspecified type Expected: 03/26/2024, Expires: 03/26/2025 [facility] Comment on above: Expected: 03/26/2024, Expires: Start: 03-26-2024 End: 03-26-2025 Folate [Mass/volume] in Serum or Plasma FOLATE, SERUM Lab Routine Anemia, unspecified type Expected: 03/26/2024, Expires: 03/26/2025 [facility] Comment on above: Expected: 03/26/2024, Expires: Start: 03-26-2024 End: 06-25-2024 Hemoglobin A1c in Blood HEMOGLOBIN A1C Lab Routine Type 2 diabetes mellitus with stage 3 chronic kidney disease, without long-term current use of insulin, unspecified whether stage 3a or 3b CKD (HCC) Expected: 03/26/2024, Expires: 06/25/2024 [facility] Comment on above: Expected: 03/26/2024, Expires: Start: 03-26-2024 End: 03-26-2025 Hemoglobin.gastrointestin al.lower [Presence] in Stool by Immunoassay IMMUNOCHEMICAL FECAL OCCULT BLOOD TEST Lab Routine Anemia, unspecified type Expected: 03/26/2024, Expires: 03/26/2025 [facility] Comment on above: Expected: 03/26/2024, Expires: Start: 03-26-2024 End: 03-26-2025 Iron and Iron binding capacity panel - Serum or Plasma IRON AND TIBC Lab Routine Anemia, unspecified type Expected: 03/26/2024, Expires: 03/26/2025 [facility] Comment on above: Expected: 03/26/2024, Expires: 5 Start: 03-25-2024 End: 03-25-2024 Patient encounter procedure 03/25/2024 2:40 PM EDT Office Visit Cardiology [address] [place] [address] Pam Reddy MD [address], [address] [place], [place] [id number] 1 yr f/u Cardiology Comment on above: 1 yr f/u Start: 02-14-2024 BP CONTROLLED (<130/80) BP CONTROLLED (<130/80) [facility] Start: 02-13-2024 Hemoglobin A1c measurement HbA1C [facility] Start: 02-13-2024 Hemoglobin A1c/Hemoglobin.total in Blood HbA1C [facility] Start: 02-07-2024 3 comp foot exam completed DIABETIC FOOT EXAM [facility] Start: 02-07-2024 ANNUAL PCP TEAM CHRONIC DISEASE VISIT ANNUAL PCP TEAM CHRONIC DISEASE VISIT [facility] Start: 02-07-2024 BP CONTROLLED (<130/80) BP CONTROLLED (<130/80) [facility] Start: 02-07-2024 SHINGRIX VACCINE (1 of 2) SHINGRIX VACCINE (1 of 2) [facility] Comment on above: Postponed from 1993 (Insurance Cov erage) Start: 12-14-2023 Covid-19 Vaccine () Covid-19 Vaccine () [facility] Start: 10-16-2023 Advance Directive Discussion Advance Directive Discussion [facility] Start: 10-04-2023 BP CONTROLLED (<130/80) BP CONTROLLED (<130/80) [facility] in Start: 08-15-2023 End: 08-15-2024 Basic metabolic 2000 panel - Serum or Plasma BASIC METABOLIC PNL Lab Routine Renal insufficiency Expected: 08/15/2023, Expires: 08/15/2024 [facility] Work Phone: Comment on above: Expected: 08/15/2023, Expires: Start: 08-15-2023 BP CONTROLLED (<130/80) BP CONTROLLED (<130/80) [facility] Start: 08-15-2023 End: 11-14-2023 Urinalysis complete panel - Urine URINALYSIS, WITH MICROSCOPIC Lab Routine Renal insufficiency Expected: 08/15/2023, Expires: 11/14/2023 [facility] Work Phone: Comment on above: Expected: 08/15/2023, Expires: Start: 06-16-2023 Covid-19 Vaccine () Covid-19 Vaccine () [facility] Start: 06-16-2023 Influenza vaccination [facility] Start: 06-08-2023 COVID-19 VACCINE (5 - Moderna series) COVID-19 VACCINE (5 - Moderna series) [facility] Start: 03-29-2023 BP CONTROLLED (<130/80) BP CONTROLLED (<130/80) [facility] Start: 02-20-2023 End: 02-14-2024 Echocardiography ECHO Cardiology Routine Syncope, unspecified syncope type Aortic valve disorder Expected: 02/20/2023, Expires: 02/14/2024 [facility] Work Phone: Comment on above: Expected: 02/20/2023, Expires: Start: 02-06-2023 End: 04-08-2023 ALBUMIN/CREAT RATIO RND UR ALBUMIN/CREAT RATIO RND UR Lab Routine Type 2 diabetes mellitus with stage 3 chronic kidney disease, without long-term current use of insulin, unspecified whether stage 3a or 3b CKD (HCC) Expected: 02/06/2023, Expires: 04/08/2023 [facility] Work Phone: Comment on above: Expected: 02/06/2023, Expires: 3 Start: 02-06-2023 End: 04-08-2023 CBC W Auto Differential panel - Blood CBC + DIFF Lab Routine Type 2 diabetes mellitus with stage 3 chronic kidney disease, without long-term current use of insulin, unspecified whether stage 3a or 3b CKD (HCC) Expected: 02/06/2023, Expires: 04/08/2023 [facility] Work Phone: Comment on above: Expected: 02/06/2023, Expires: 3 Start: 02-06-2023 End: 04-08-2023 Comprehensive metabolic 2000 panel - Serum or Plasma COMP METABOLIC PANEL Lab Routine Type 2 diabetes mellitus with stage 3 chronic kidney disease, without long-term current use of insulin, unspecified whether stage 3a or 3b CKD (HCC) Expected: 02/06/2023, Expires: 04/08/2023 [facility] Work Phone: Comment on above: Expected: 02/06/2023, Expires: 3 Start: 02-06-2023 End: 04-08-2023 Hemoglobin A1c in Blood HGB A1C Lab Routine Type 2 diabetes mellitus with stage 3 chronic kidney disease, without long-term current use of insulin, unspecified whether stage 3a or 3b CKD (HCC) Expected: 02/06/2023, Expires: 04/08/2023 [facility] Work Phone: Comment on above: Expected: 02/06/2023, Expires: Start: 02-06-2023 End: 04-08-2023 Lipid 1996 panel - Serum or Plasma LIPID PANEL BASIC Lab Routine Type 2 diabetes mellitus with stage 3 chronic kidney disease, without long-term current use of insulin, unspecified whether stage 3a or 3b CKD (HCC) Expected: 02/06/2023, Expires: 04/08/2023 [facility] Work Phone: Comment on above: Expected: 02/06/2023, Expires: 3 Start: 01-19-2023 ANNUAL PCP TEAM CHRONIC DISEASE VISIT ANNUAL PCP TEAM CHRONIC DISEASE VISIT [facility] Start: 01-19-2023 BP CONTROLLED (<130/80) BP CONTROLLED (<130/80) [facility] Start: 01-18-2023 HEMOGLOBIN/HEMATOCRIT HEMOGLOBIN/HEMATOCRIT [facility] Start: 01-18-2023 Hepatitis B screening URINE ALBUMIN:CREATININE RATIO [facility] Start: 01-18-2023 SERUM CREATININE SERUM CREATININE [facility] Start: 12-21-2022 Hepatitis B surface antibody level LDL CHOLESTEROL [facility] Start: 10-16-2022 ADVANCE DIRECTIVE DISCUSSION ADVANCE DIRECTIVE DISCUSSION [facility] Start: 08-22-2022 End: 08-15-2023 Echocardiography ECHO Cardiology Routine Nonrheumatic aortic valve stenosis Expected: 08/22/2022, Expires: 08/15/2023 [facility] Work Phone: Comment on above: Expected: 08/22/2022, Expires: 3 Start: 07-20-2022 Hemoglobin A1c/Hemoglobin.total in Blood HBA1C [facility] Start: 06-16-2022 Influenza vaccination [facility] Start: 04-12-2022 COVID-19 VACCINE (4 - Booster for Moderna series) COVID-19 VACCINE (4 - Booster for Moderna series) [facility] Start: 02-18-2022 End: 04-20-2022 Basic metabolic 2000 panel - Serum or Plasma BASIC METABOLIC PNL Lab Routine Essential hypertension with goal blood pressure less than 140/90 Expected: 02/18/2022, Expires: 04/20/2022 [facility] Work Phone: Comment on above: Expected: 02/18/2022, Expires: 2 Start: 02-07-2022 COVID-19 VACCINE (4 - Booster for Moderna series) COVID-19 VACCINE (4 - Booster for Moderna series) [facility] Start: 10-16-2021 ADVANCE DIRECTIVE DISCUSSION ADVANCE DIRECTIVE DISCUSSION [facility] Start: 01-18-2020 3 comp foot exam completed DIABETIC FOOT EXAM [facility] Start: 12-05-2019 Glaucoma screening Dilated Retinal Exam [facility] Start: 12-05-2019 Hepatitis C antibody, confirmatory test DILATED RETINAL EXAM [facility] Start: 2018 RSV Vaccine (1 - 1-dose 75+ series) RSV Vaccine (1 - 1-dose 75+ series) [facility] Start: 2003 Hepatitis B Vaccine (1 of 3 - Risk 3-dose series) Hepatitis B Vaccine (1 of 3 - Risk 3-dose series) [facility] Start: 1993 SHINGRIX VACCINE (1 of 2) SHINGRIX VACCINE (1 of 2) [facility] Start: 1961 BP Controlled (<130/80) BP Controlled (<130/80) [facility] Start: 1961 HEPATITIS C SCREENING HEPATITIS C SCREENING [facility] Start: 1949 PNEUMOCOCCAL: 65+ (1 - PCV) PNEUMOCOCCAL: 65+ (1 - PCV) [facility] End: 08-09-2025 CTA Abdominal vessels and Pelvis vessels W contrast IV CTA ABD/PEL W IVCON Radiology Routine Nonrheumatic aortic valve stenosis Encounter for preprocedural cardiovascular examination 1 Occurrences starting 07/10/2024 until 08/09/2025 [facility] Work Phone: Comment on above: 1 Occurrences starting 07/10/2024 until 08/09/2025 End: 07-23-2024 CTA Abdominal vessels and Pelvis vessels W contrast IV [facility] Work Phone: Comment on above: 1 Occurrences starting 07/23/2024 until 07/23/2024 End: 08-09-2025 CTA Chest vessels WO and W contrast IV CTA CHEST (GATED) WO/W IVCON Radiology Routine Nonrheumatic aortic valve stenosis Encounter for preprocedural cardiovascular examination 1 Occurrences starting 07/10/2024 until 08/09/2025 [facility] Comment on above: 1 Occurrences starting 07/10/2024 until 08/09/2025 End: 07-23-2024 CTA Chest vessels WO and W contrast IV [facility] Comment on above: 1 Occurrences starting 07/23/2024 until 07/23/2024 ECG COMPLETE ECG COMPLETE ECG Routine Syncope, unspecified syncope type Aortic valve disorder Paroxysmal atrial fibrillation (HCC) Ordered: 03/21/2024 [facility] Work Phone: Comment on above: Ordered: 03/21/2024 End: 07-10-2025 EXTENDED WEAR INTERNET SALES ASSOCIATE PATCH EXTENDED WEAR INTERNET SALES ASSOCIATE PATCH ECG Routine Nonrheumatic aortic valve stenosis 1 Occurrences starting 07/10/2024 until 07/10/2025 [facility] Comment on above: 1 Occurrences starting 07/10/2024 until 07/10/2025 End: 07-10-2024 EXTENDED WEAR INTERNET SALES ASSOCIATE PATCH EXTENDED WEAR INTERNET SALES ASSOCIATE PATCH ECG Routine Nonrheumatic aortic valve stenosis 1 Occurrences starting 07/10/2024 until 07/10/2024 [facility] Work Phone: Comment on above: 1 Occurrences starting 07/10/2024 until 07/10/2024 Hemoglobin.tony lopezlower [Presence] in Stool by Immunoassay IMMUNOCHEMICAL FECAL OCCULT BLOOD TEST Lab Routine CKD (chronic kidney disease) stage 4, 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/min ([facility]) Anemia, unspecified type Ordered: 04/05/2024 [facility] Work Phone: Comment on above: Ordered: 04/05/2024 Hemoglobin.tony velez alTituslower [Presence] in Stool by Immunoassay IMMUNOCHEMICAL FECAL OCCULT BLOOD TEST Lab Routine Screen for colon cancer Ordered: 2024 [facility] Work Phone: Comment on above: Ordered: 2024 OUTSIDE VENDOR CARDI AC OUTPATIENT EXTENDED RHYTHM RECORDING (WITHOUT TELEMETRY) OUTSIDE VENDOR CARDIAC OUTPATIENT EXTENDED RHYTHM RECORDING (WITHOUT TELEMETRY) Holter Routine Syncope, unspecified syncope type Ordered: 02/13/2023 [facility] Work Phone: Comment on above: Ordered: 02/13/2023 Removal impacted cer umen irrigation/lvg unilat AMBULATORY EAR LAVAGE/IRRIGATION Procedures Routine Bilateral impacted cerumen Ordered: 01/21/2025 [facility] Comment on above: Ordered: 01/21/2025 End: 03-26-2025 US Carotid arteries - bilateral US CAROTID ARTERIES GRAY V[facility] LAB Vascular Lab Routine History of carotid endarterectomy 1 Occurrences starting 03/26/2024 until 03/26/2025 [facility] Work Phone: Comment on above: 1 Occurrences starting 03/26/2024 until 03/26/2025 End: 03-16-2023 US CAROTID ARTERIES GRAY VAS LAB US CAROTID ARTERIES GRAY VAS LAB Vascular Lab Routine Bilateral carotid artery stenosis 1 Occurrences starting 03/18/2022 until 03/16/2023 [facility] Work Phone: Comment on above: 1 Occurrences starting 03/18/2022 until 03/16/2023 End: 10-04-2023 US CAROTID ARTERIES GRAY VAS LAB US CAROTID ARTERIES GRAY VAS LAB Vascular Lab Routine Bilateral carotid artery stenosis 1 Occurrences starting 10/04/2022 until 10/04/2023 [facility] Work Phone: Comment on above: 1 Occurrences starting 10/04/2022 until 10/04/2023 End: 04-25-2025 US Kidney - bilateral and Urinary bladder US KIDNEY/BLADDER Radiology Routine Renal insufficiency 1 Occurrences starting 03/26/2024 until 04/25/2025 [facility] Comment on above: 1 Occurrences starting 03/26/2024 until 04/25/2025 [facility] Immunizations Immunization Date Immunization Notes Care Provider [facility] 07-12-2024 COVID-19 vaccine, ag e 12+ yr (PFIZER-BIONTECH COMNAT) Guanakito Reno MD Work Phone: [facility] 07-12-2024 influenza, high dose seasonal, preservative-free Guanakito Reno MD Work Phone: [facility] 07-12-2024 influenza virus vacc ine, unspecified formulation Guanakito Reno MD Work Phone: [facility] 08-14-2023 COVID-19 vaccine, ag e 12+ yr, season (PFIZER-BIONTECH) Guanakito Reno MD Work Phone: [facility] 08-14-2023 influenza (HD-IIV4) vaccine, age 65+ yr, high dose, quadrivalent, PF (FLUZONE HIGH-DOSE) Guanakito Reno MD Work Phone: [facility] 08-14-2023 influenza virus vacc ine, unspecified formulation Ruthie Cuevas [facility] 02-06-2023 COVID-19 vaccine, ag e 12+ yr, bivalent ([employer]) Guanakito Reno MD Work Phone: [facility] 12-13-2021 COVID-19 vaccine, ag e 12+ yr (PFIZER-BIONTECH - YANES TOP) Guanakito Reno MD Work Phone: [facility] 04-22-2021 tetanus and diphther ia toxoids, adsorbed, preservative free, for adult use (5 Lf of tetanus toxoid and 2 Lf of diphtheria toxoid) Guanakito Reno MD Work Phone: [facility] 02-16-2021 COVID-19 vaccine, fu ll dose (MODERNA) Guanakito Reno MD Work Phone: [facility] Work Phone: 01-19-2021 COVID-19 vaccine, fu ll dose (MODERNA) Guanakito Reno MD Work Phone: [facility] Work Phone: 07-18-2019 influenza, high dose seasonal, preservative-free Guanaikto Reno MD Work Phone: [facility] Work Phone: 07-18-2019 influenza virus vacc ine, unspecified formulation Lizette Cardenas RN [facility] 09-15-2017 influenza, high dose seasonal, preservative-free Guanakito Reno MD Work Phone: [facility] 08-11-2016 influenza, high dose seasonal, preservative-free Guanakito Reno MD Work Phone: [facility] 08-11-2016 pneumococcal polysaccharide vaccine, 23 valent Guanakito Reno MD Work Phone: [facility] 08-10-2015 influenza, high dose seasonal, preservative-free Guanakito Reno MD Work Phone: [facility] 04-09-2015 pneumococcal conjuga te vaccine, 13 valent Guanakito Reno MD Work Phone: [facility] 10-21-2013 influenza virus vacc ine, unspecified formulation Guanakito Reno MD Work Phone: [facility] 08-08-2012 influenza virus vacc ine, unspecified formulation Guanakito Reno MD Work Phone: [facility] Work Phone: 10-12-2005 pneumococcal polysaccharide vaccine, 23 valent Guanakito Reno MD Work Phone: [facility] Work Phone: 12-02-2003 diphtheria and tetan us toxoids, adsorbed for pediatric use Guanakito Reno MD Work Phone: [facility] Work Phone: Payers Date Payer Category Payer Self-pay 2024 Unknown [id number] 2019 Medicare UHC AAR MEDICAR E [facility] MEDICARE O [id number] 2019-Present [phone] [address] [address] [place] [address] [facility] [id number] 2019 Medicare UHC AAR MEDICAR E UHC AARP MEDICARE HMO [id number] 2019-Present [phone] [address] [address] [place] [address] [facility] [id number] 2019 Medicare (Managed Care) UHC AARP MEDICARE HMO [id number] 2019 Medicare [id number] 2009 Unknown [id number] 2008 Medicare [id number] Medicare [id number] Unknown [id number] Unknown [id number] Unknown [id number] Unknown [id number] Unknown [id number] 462 Unknown [id number] Unknown [id number] 462 Unknown [id number] 462 Unknown [id number] 462 Unknown [id number] Unknown [id number] Unknown [id number] Social History Date Type Detail Facility Start: 08-10-2015 End: 03-06-2025 Tobacco smoking status KSIS Ex-smoker [facility] Start: 12-05-1975 End: 12-05-1985 History of tobacco use Current smoker [facility] Start: 12-05-1975 End: 12-05-1985 History of tobacco use Cigarette Smoker [facility] Start: 01-19-2022 End: 03-06-2025 Alcohol intake Current non-drinker of alcohol (finding) [facility] Start: 10-26-2020 History SDOH Alcohol Frequency 1 [facility] Start: 10-26-2020 History SDOH Alcohol Std Drinks 98 [facility] Start: 05-15-2019 History SDOH Alcohol Comment none now; social in past [facility] Start: 10-26-2020 History SDOH Social Connections Get Together 2 [facility] Start: 10-26-2020 History SDOH Social Connections Living 4 [facility] Start: 10-26-2020 History SDOH Physica l Activity DPW 0 [facility] Start: 10-26-2020 History SDOH Financial 5 [facility] Start: 10-26-2020 Education 14 [facility] Start: 1945 Sex Assigned At Not on file C [facility] Start: 01-09-2022 End: 08-15-2022 Exposure to SARS-CoV-2 (event) Not sure [facility] Start: 03-22-2022 End: 04-01-2022 Exposure to SARS-CoV-2 (event) Unable to assess [facility] Work Phone: Start: 08-10-2015 End: 04-11-2023 Cigarettes smoked current (pack per day) - Reported 2 [facility] Start: 08-10-2015 End: 06-05-2024 Tobacco use and exposure Smokeless tobacco non-user [facility] Start: 10-26-2020 End: 04-11-2023 Social connection and isolation panel [facility] Do you belong to any clubs or organizations such as yazidism groups, unions, fraternal or athletic groups, or school groups? No [facility] Are you now , , , , never or living with a partner? [facility] How often to you hav e a drink containing alcohol? Never [facility] How many standard dr inks containing alcohol do you have on a typical day? Patient refused [facility] Do you feel stress - tense, restless, nervous, or anxious, or unable to sleep at night because your mind is troubled all the time - these days [OSQ] Only a little [facility] (I/We) worried wheth er (my/our) food would run out before (I/we) got money to buy more. Never true [facility] Start: 1945 Sex Assigned At Male W [facility] Medical Equipment Procedure Code Equipment Code Equipment Origin al Text Equipment Identifier Dates [id number], [id number] Start: 11-11-2011 Comment on above: Test blood sugar(s) one times daily. Dx: 250.00. Insulin: No Test blood sugar(s) one time daily. Dx: 250.00. Insulin: No Goals Date Patient Goal Desired Activity /State Personal health goal Functional Status Date Assessment Result Facility 04-09-2015 Are you deaf, or do you have serious difficulty hearing No 04/09/2015 11:20 AM EDT Stephany Graves MA No [facility] 04-09-2015 Are you blind, or do you have serious difficulty seeing, even when wearing glasses No 04/09/2015 11:20 AM EDT Stephany Graves MA No [facility] 04-09-2015 Do you have serious difficulty walking or climbing stairs No 04/09/2015 11:20 AM EDT Stephany Graves MA No [facility] 04-09-2015 Do you have difficul ty dressing or bathing No 04/09/2015 11:20 AM JORGET Stephany Graves MA [facility] 04-09-2015 Because of a physica l, mental, or emotional condition, do you have difficulty doing errands alone such as visiting a physician's office or shopping No 04/09/2015 11:20 AM EDT Stephany Graves MA [facility] Mental Status Date Assessment Result Facility 04-09-2015 Because of a physica l, mental, or emotional condition, do you have serious difficulty concentrating, remembering, or making decisions No 04/09/2015 11:20 AM EDT Stephany Graves MA [facility] Clinical Notes 03-29-2011 to 04-15-2025 Telephone Encounter - Twin Cole RP - 04/15/2025 9:09 AM EDTTelephone Encounter - Twin Cole RP - 04/15/2025 9:09 AM EDTTelephone Encounter - Leidy Malone RN - 04/14/2025 3:18 PM EDT Note Date & Type Note Facility 04-15-2025 Telephone encount er Note [facility] Antico[facility] Anticoagulation Episode Summary Anticoagulation Care Providers Provider Role Specialty Phone number Guanakito Reno MD [facility] [phone] Cal Mitchell is a 79 year old [...] Pharmacy Anticoagulation Clinic [facility] Pager: [phone]. [facility] 04-15-2025 Miscellaneous Notes Formattin g of this note is different from the original. [facility] Anticoagulation Episode Summary Anticoagulation Care Providers Provider Role Specialty Phone number Guanakito Reno MD [facility] [phone] Cal Mitchell is a 79 year old [...] Pharmacy Anticoagulation Clinic [facility] Pager: [phone]. documented in this encounter [facility] 04-14-2025 Telephone encount er Note Gustavo calls back and notified of provider recommendation below. Voices understanding. Leidy Malone RN [facility] 04-14-2025 Miscellaneous Notes Formattin g of this note might be different from the original. Gustavo calls back and notified of provider recommendation below. Voices understanding. Leidy Malone RN Phoned Gustavo left message to return call and ask to speak to a nurse. yes Patient son in law Chen calling he has been giving the patient Tylenol 500 mg two tablets twice daily since his fracture right shoulder at almost the end of February. He is asking if it is alright that they are still giving it to him? Please advise documented in this encounter [facility] 04-14-2025 Telephone encount er Note Phoned Gustavo left message to return call and ask to speak to a nurse. [facility] 04-14-2025 Telephone encount er Note yes [facility] 04-14-2025 Telephone encount er Note Patient son in law Chen calling he has been giving the patient Tylenol 500 mg two tablets twice daily since his fracture right shoulder at almost the end of February. He is asking if it is alright that they are still giving it to him? Please advise [facility] 04-08-2025 Telephone encount er Note The following approved medication requests have been transmitted electronically. Requested Prescriptions Pending Prescriptions Disp Refills warfarin (COUMADIN) 5 mg tablet 90 tablet 3 Sig: Take 1 tablet by mouth once daily. warfarin (COUMADIN) 5 mg tablet 30 tablet 0 Sig: Take 1 tablet by mouth once daily. Carolina Landeros APRN.CNP [facility] 04-08-2025 Miscellaneous Notes Formattin g of this [...] 2025 2:33 PM documented in this encounter [facility] 04-08-2025 Telephone encount er Note Prescription Refill [...] Meyer LPN April 08, 2025 2:38 PM [facility] 04-08-2025 Miscellaneous Notes Formattin g of this [...] 2025 2:38 PM documented in this encounter [facility] 04-08-2025 Telephone encount er Note Prescription Refill [...] Meyer LPN April 08, 2025 2:33 PM [facility] 04-08-2025 Evaluation note Diagnosis Hypertensive kidney disease with stage 3 chronic kidney disease, unspecified whether stage 3a or 3b CKD (HCC) Type 2 diabetes mellitus with stage 3 chronic kidney disease, without long-term current use of insulin, unspecified whether stage 3a or 3b CKD (HCC) Chronic renal disease, stage IV (HCC) Chronic kidney disease, Stage IV (severe) documented in this encounter [facility]06-13-2025 Telephone encounter Note* Telephone Encounter - Niels Rodriges RN - 03/28/2025 1:04 PM EDT Faxed recent ov notes to [facility] per daughter, January request. . January reports she [facility] and [facility] instructed her to have pcp office send an H & P to them for review. [facility]06-13-2025 Miscellaneous Notes* Telephone Encounter - Niels Rodriges RN - 03/28/2025 1:04 PM EDT Faxed recent ov notes to [facility] per daughter, January request. . January reports she talked to [facility] about patient going to live there and [facility] instructed her to have pcp office send an H & P to them for review. [facility] Telephone encounter Note * Telephone Encounter - Alejandro Molina RP - 03/24/2025 10:57 AM EDT [facility] Ambulatory Pharmacy Anticoagulation Clinic Anticoagulation Episode Summary Anticoagulation Care Providers Provider Role Specialty Phone number Guanakito Reno MD [facility] [phone] Cal Mitchell is a 79 year old [...] instructed to call [facility] at [phone] with any questionsor concerns. Alejandro Molina RPh Clinical Pharmacist, Pharmacy Anticoagulation Clinic [facility] Pager: [phone] [facility]06-09-2025 Miscellaneous Notes* Telephone Encounter - Alejandro Molina RPh - 03/24/2025 10:57 AM EDT [facility]tico[facility] Clinic Anticoagulation Episode Summary Anticoagulation Care Providers Provider Role Specialty Phone number Guanakito Reno MD [facility] [phone] Cal Mitchell is a 79 year old [...] instructed to call [facility] at [phone] with any questionsor concerns. Alejandro Molina RPh Clinical Pharmacist, Pharmacy Anticoagulation Clinic [facility] Pager: [phone] [facility] Evaluation note* Diagnosis Onset Date Resolution Status Admit Date Closed fracture of right pro ximal humerus acute March 07, 2025 1 2:49pm [facility] Work Phone: [phone] NoteHNO ID: [id number] Author: CAROLINA LANDEROS APRN.[employer] Service: ? Author Type: Nurse Practitioner Type: [...] and 9-10/10 with movement. - Currently taking Boelus for pain management. - Denies pain elsewhere [...] 250.00. Insulin: No Lancets (ONE TOUCH DELICA) [facility] lancets Test blood sugar(s) one time daily. [...] in a sl (more content not included)... [facility]05-08-2025 Telephone encounter Note* Telephone Encounter - Jimmy Carrizales, [facility] - 02/20/2025 8:59 AM EDT [facility] Ambulatory Pharmacy Anticoagulation Clinic Anticoagulation Episode Summary Anticoagulation Care Providers Provider Role Specialty Phone number Guanakito Reno MD [facility] [phone] Cal Mitchell is a 79 year old [...] Allergies Indication for Warfarin: 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 pharmacist (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 Paroxysmal atrial fibrillation [...] Pharmacy Anticoagulation Clinic Pharmacy An[facility] Pager: [phone]. [facility]05-08-2025 Miscellaneous Notes* Telephone Encounter - Jimmy Carrizales RPh - 02/20/2025 8:59 AM EDT [facility] Ambulatory Pharm[facility] Anticoagulation Clinic Anticoagulation Episode Summary Anticoagulation Care Providers Provider Role Specialty Phone number Guanakito Reno MD [facility] [phone] Cal Mitchell is a 79 year old [...] Allergies Indication for Warfarin: 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 pharmacist (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 Paroxysmal atrial fibrillation [...] Pharmacy Anticoagulation Clinic Pharmacy An[facility] Pager: [phone]. [facility] Telephone encounter Note * Telephone Encounter - GaboKamran [facility] - 01/31/2025 12:43 PM EDT [facility] Ambulatory Pharmacy Anticoagulation Clinic Anticoagulation Episode Summary Anticoagulation Care Providers Provider Role Specialty Phone number Guanakito Reno MD [facility] [phone] Cal Mitchell is a 79 year old [...] Allergies Indication for Warfarin: 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 pharmacist (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 Paroxysmal atrial fibrillation [...] Pharmacy Anticoagulation Clinic Pharmacy Antico[facility] Clinic Pager: [phone]. [facility]04-18-2025 Miscellaneous Notes* Telephone Encounter - Kamran Ayon RPh - 01/31/2025 12:43 PM EDT [facility] Ambulatory Pharmacy Anticoagulation Clinic Anticoagulation Episode Summary Anticoagulation Care Providers Provider Role Specialty Phone number Guanakito Reno MD [facility] [phone] Cal Mitchell is a 79 year old [...] Allergies Indication for Warfarin: 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 pharmacist (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 Paroxysmal atrial fibrillation [...] Pharmacy Anticoagulation Clinic Pharmacy Anticoagulation Clinic Pager: [id number]. documented in this encounterAdena [facility] Center04-10-2025 Progress note* Result Encounter Note - Carolina Landeros APRN.[employer] - 01/23/2025 8:10 AM EDT Diabetes is [...] levels, magnesium, and B12 are all normal. [facility]04-10-2025 Miscellaneous Notes* Result Encounter Note - Carolina [...] B12 are all normal. documented in this encounterAdena Regional Medical Center04-08-2025 NoteHNO ID: [id number] Author: GEOVANNA HINDS MA Service: ? Author Type: Operations Research Manager Type: Progress Notes Filed: 01/21/2025 17:08 Note [...] Geovanna Hinds MA January 21, 2025 5:08 [facility]04-08-2025 History of Present illness Narrative* Geovanna Hinds [...] Geovanna Hinds MA January 21, 2025 5:08 PM * Carolina Landeros APRN.CNP - 01/21/2025 3:43 PM EDT This is [...] taking lisinopril Monitors bp at home: Yes. [place] checks it, ok there Denies side effects: [...] 250.00. Insulin: No Lancets (ONE TOUCH DELICA) [facility] lancets Test blood sugar(s) one time daily. [...] No oropharyngeal exudate. Eyes: Comments: Conjunctiva gray. [place] and itchy Cardiovascular: Rate and Rhythm: Normal [...] to person, place, and time. Psychiatric: Comments: renetta Hall historian LABS: check labs ASSESSMENT/PLAN: 1. Hyperlipidemia, [...] MG TABLET - COMPREHENSIVE METABOLIC PANEL 12. FPC (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 - ICD9: V58.61, [...] \\ Carolina Landeros APRN.CNP documented in this encounterAdena [facility] Center04-08-2025 Note* Addendum Note - Carolina Landeros APRN.CNP - 01/21/2025 4:54 PM EDTAddended by: CAROLINA LANDEROS on: 01/21/2025 04:54 PM Modules accepted: Orders [facility]04-08-2025 Miscellaneous Notes* Addendum Note - Carolina Landeros APRN.CNP - 01/21/2025 4:54 PM EDTAddended by: CAROLINA LANDEROS on: 01/21/2025 04:54 PM Modules accepted: Orders * Addendum Note - Geovanna Hinds MA - 01/21/2025 4:33 PM EDTAddended by: GEOVANNA HINDS on: 01/21/2025 04:33 PM Modules accepted: Orders documented in this encounterAdena [facility] Medical Center04-08-2025 Note* Addendum Note - Geovanna Hinds MA - 01/21/2025 4:33 PM EDTAddended by: GEOVANNA HINDS on: 01/21/2025 04:33 PM Modules accepted: Orders [facility]04-08-2025 Instructions* Patient Instructions* Carolina Landeros APRN.CNP - [...] up in 6 months documented in this encounterAdena Regional Medical Center04-08-2025 NoteHNO ID: [id number] Author: CAROLINA LANDEROS APRN.CNP Service: ? Author [...] taking lisinopril Monitors bp at home: Yes. [place] checks it, ok there Denies side effects: [...] 250.00. Insulin: No Lancets (ONE TOUCH DELICA) [facility] lancets Test blood sugar(s) one time daily. [...] Drug use: No EXAM: (more content not included)...[facility]03-26-2025 Miscellaneous Notes* Telephone Encounter - Josselyn [...] 08, 2025 2:53 PM documented in this encounterAdena [facility] Medical Center03-26-2025 Telephone encounter Note * Telephone Encounter - [...] Barrow LPN January 08, 2025 2:53 PM [facility]03-26-2025 Telephone encounter Note* Telephone Encounter - Ruthie Cuevas RP - 01/08/2025 8:51 AM EDT [facility] Anticoagulation Episode Summary Anticoagulation Care Providers Provider Role Specialty Phone number Guanakito Reno MD [facility] [phone] Cal Mitchell is a 79 year old [...] Allergies Indication for Warfarin: 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 pharmacist (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 Paroxysmal atrial fibrillation [...] Pharmacy Anticoagulation Clinic Pharm[facility] Pager: [phone]. [facility]03-26-2025 Miscellaneous Notes* Telephone Encounter - Ruthie Cuevas RPh - 01/08/2025 8:51 AM EDT [facility] Anticoagulation Episode Summary Anticoagulation Care Providers Provider Role Specialty Phone number Guanakito Reno MD [facility] [phone] Cal Mitchell is a 79 year old [...] Allergies Indication for Warfarin: 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 pharmacist (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 Paroxysmal atrial fibrillation [...] Pharmacy Anticoagulation Clinic Pharmacy Antico[facility] Clinic Pager: [phone]. documented in this encounterAdena Regional Medical Center03-26-2025 Evaluation note* Diagnosis Hypertensive kidney disease with stage 3 chronic kidney disease, unspecified whether stage 3a or 3b CKD (HCC) documented in this encounter [facility]03-17-2025 Telephone encounter Note* Telephone Encounter - Octavio JansenOracle Financials DeveloperRuben Granados - 12/30/2024 9:15 AM EDT [facility]coe[facility]lar[facility] called regarding INR result for patient. Result has been addressed below, no further action needed. Ruben Cunningham, Auto Self Service Station Attendant (research and development specialist) Pharmacy Anticoagulation Clinic [facility]03-17-2025 Miscellaneous Notes* Telephone Encounter - Octavio JansenOracle Financials DeveloperRuben Granados - 12/30/2024 9:15 AM EDT [facility] called regarding INR result for patient. Result has been addressed below, no further action needed. Ruben Cunningham, Auto Self Service Station Attendant (research and development specialist) [facility]acy Anticoagulation Clinic * Telephone Encounter - Twin Cole RP - 12/30/2024 9:12 AM EDT [facility] Anticoagulation Episode Summary Anticoagulation Care Providers Provider Role Specialty Phone number Guanakito Reno MD [facility] [phone] Cal Mitchell is a 79 year old [...] Pharmacy Anticoagulation Clinic Pharmacy Anticoagulation Clinic Pager: [phone]. documented in this encounterAdena [facility] Medical Center03-17-2025 Telephone encounter Note * Telephone Encounter - Twin Cole RPh - 12/30/2024 9:12 AM EDT [facility] Anticoagulation Episode Summary Anticoagulation Care Providers Provider Role Specialty Phone number Guanakito Reno MD [facility] [phone] Cal Mitchell is a 79 year old [...] Pharmacy Anticoagulation Clinic Pharmacy Anticoagulation Clinic Pager: [phone]. [facility]02-26-[facility] Telephone encounter Note* Telephone Encounter - Jimmy Carrizales [facility] - 12/11/2024 9:43 AM EST [facility] Amb[facility] Anticoagulation Episode Summary Anticoagulation Care Providers Provider Role Specialty Phone number Guanakito Reno MD [facility] [phone] Cal Mitchell is a 79 year old [...] Allergies Indication for Warfarin: 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 pharmacist (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 Paroxysmal atrial fibrillation [...] missed any doses of warfarin. Jimmy Carrizales [facility] Clinical Pharmacist, Pharmacy Anticoagulation Clinic Pharmacy Anticoagulation Clinic Pager: [phone]. [facility]02-26-[facility] Miscellaneous Notes* Telephone Encounter - Jimmy Carrizales RPh - 12/11/2024 9:43 AM EST [facility] Anticoagulation Episode Summary Anticoagulation Care Providers Provider Role Specialty Phone number Guanakito Reno MD [facility] [phone] Cal Mitchell is a 79 year old [...] 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: FPC (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 Paroxysmal atrial fibrillation [...] missed any doses of warfarin. Jimmy Carrizales [facility] Clinical Pharmacist, Pharmacy Anticoagulation Clinic Pharmacy Anticoagulation Clinic Pager: [phone]. documented in this encounterAdena [facility] Medical Center02-11-2025 Telephone encounter Note * Telephone Encounter - Twin Cole RPh - 11/26/2024 5:26 PM EST [facility] Anticoagulation Episode Summary Anticoagulation Care Providers Provider Role Specialty Phone number Guanakito Reno MD [facility] [phone] Cal Mitchell is a 79 year old [...] Pharmacy Anticoagulation Clinic Pharmacy Anticoagulation Clinic Pager: [phone]. [facility]02-11-[facility]25 Miscellaneous Notes* Telephone Encounter - Twin Cole RPh - 11/26/2024 5:26 PM EST [facility] Ambulatory [facility]tico[facility] Clinic Anticoagulation Episode Summary Anticoagulation Care Providers Provider Role Specialty Phone number Guanakito Reno MD [facility] [phone] Cal Mitchell is a 79 year old [...] Pharmacy Anticoagulation Clinic Pharmacy Anticoagulation Clinic Pager: [phone]. documented in this encounterAdena [facility] Medical Center01-13-2025 Telephone encounter Note * Telephone Encounter - Alejandro Molina RPh - 10/28/2024 5:06 PM EST [facility] Anticoagulation Episode Summary Anticoagulation Care Providers Provider Role Specialty Phone number Guanakito Reno MD [facility] [phone] Cal Mitchell is a 79 year old [...] instructed to call [facility] at [phone] with any questionsor concerns. Alejandro Molina RPh Clinical Pharmacist, Pharmacy Anticoagulation Clinic Pharmacy Anticoagulation Clinic Pager: [phone] [facility]01-13-2025 Miscellaneous Notes* Telephone Encounter - Alejandro Molina RPh - 10/28/2024 5:06 PM EST [facility] Amb[facility] Anticoagulation Episode Summary Anticoagulation Care Providers Provider Role Specialty Phone number Guanakito Reno MD [facility] [phone] Cal Mitchell is a 79 year old [...] instructed to call [facility] at [phone] with any questionsor concerns. Alejandro Molina RPh Clinical Pharmacist, Pharmacy Anticoagulation Clinic Pharmacy Anticoagulation Clinic Pager: [phone] documented in this encounterAdena [facility] Medical Center01-06-2025 Telephone encounter Note * Telephone Encounter - Ashley De Dios RN - 10/21/2024 2:58 PM EST Pt ALEC Chen called and is notified of providers message. He voices understanding. Ashley De Dios RN [facility]01-06-2025 Miscellaneous Notes* Telephone Encounter - Ashley De [...] to two weeks * Telephone Encounter - Ashley De Dios [...] Please call and advise. documented in this encounterAdena [facility] Medical Center01-06-2025 Telephone encounter Note * Telephone Encounter - Guanakito Reno MD - 10/21/2024 2:25 PM EST agree [facility]01-06-2025 Telephone encounter Note* Telephone Encounter - Ashley [...] to the Pt. Ashley De Dios RN [facility]01-06-2025 Telephone encounter Note* Telephone Encounter - Guanakito Reno MD - 10/21/2024 1:55 PM EST Can try mucinex otc. Call if symptoms worsen at all or if not better in one to two weeks [facility]01-06-2025 Telephone encounter Note* Telephone Encounter - Ashley [...] him for Covid. Please call and advise. [facility]12-17-2024 Telephone encounter Note* Telephone Encounter - Twin Cole, [facility] - 10/01/2024 9:37 AM EST [facility] Ambulatory [facility]acy Anticoagulation Clinic Anticoagulation Episode Summary Anticoagulation Care Providers Provider Role Specialty Phone number Guanakito Reno MD [facility] [phone] Cal Mitchell is a 79 year old [...] Pharmacy Anticoagulation Clinic Pharmacy Anticoagulation Clinic Pager: [phone]. [facility]12-17-2024 Miscellaneous Notes* Telephone Encounter - Twin Cole RPh - 10/01/2024 9:37 AM EST [facility] Ambulatory [facility] Anticoagulation Clinic Anticoagulation Episode Summary Anticoagulation Care Providers Provider Role Specialty Phone number Guanakito Reno MD [facility] [phone] Cal Mitchell is a 79 year old [...] Pharmacy Anticoagulation Clinic Pharmacy Anticoagulation Clinic Pager: [phone]. documented in this encounterAdena [facility] Medical Center11-11-2024 Telephone encounter Note * Telephone Encounter - Alejandro Molina RPh - 08/26/2024 6:35 AM EST [facility] Anticoagulation Episode Summary Anticoagulation Care Providers Provider Role Specialty Phone number Guanakito Reno MD [facility] [phone] Cal Mitchell is a 79 year old [...] warfarin instructions: 5 mg every day Sent [employer] message Advised patient to continue current weekly dose as noted above Next INR check due on 09/09/2024 Alejandro Molina RPh Clinical Pharmacist, Pharmacy Anticoagulation Clinic Pharmacy Anticoagulation Clinic Pager: [phone]. [facility]11-11-2024 Miscellaneous Notes* Telephone Encounter - Alejandro Molina RPh - 08/26/2024 6:35 AM EST [facility] Ambulatory [facility] Antico[facility] Clinic Anticoagulation Episode Summary Anticoagulation Care Providers Provider Role Specialty Phone number Guanakito Reno MD [facility] [phone] Cal Mitchell is a 79 year old [...] warfarin instructions: 5 mg every day Sent [employer] message Advised patient to continue current weekly dose as noted above Next INR check due on 09/09/2024 Alejandro Molina [facility] Clinical Pharmacist, Pharmacy Anticoagulation Clinic Pharmacy Anticoagulation Clinic Pager: [phone]. documented in this encounterAdena Regional Medical Center11-04-2024 NoteHNO ID: [id number] Author: MELANIA GALINDO RN Service: ? Author Type: Registered Nurse Type: Progress Notes Filed: 08/19/2024 12:55 Note Text: Summary: Medication Adherence Review per Request of Payor ACM LUIS RN Reason for review or outreach: Medication Adherence Review Details: Cholesterol FYI/REQUESTED ACTION: Summary / Findings: Atorvastatin was due for refill on/before 08.09.24. Sent [email or web address] reminder 08.15.24- not read Called patient Patient identified by name and date of . Patient Attributed To: E Payer: Link_A_ Media MD Action Taken: Data submitted to Payer Contact made with patient: No, Left message BENJIE Schreiber RNOhiohealth [facility]11-04-2024 History of Present illness Narrative* Melania Galindo RN - 08/19/2024 12:51 PM ESTSummary: Medication Adherence Review per Request of Payor QI LUIS RN Reason for review or outreach: Medication Adherence Review Details: Cholesterol FYI/REQUESTED ACTION: Summary / Findings: Atorvastatin was due for refill on/before 08.09.24. Sent mychart reminder 08.15.24- not read Called patient Patient identified by name and date of . Patient Attributed To: QAE Payer: Link_[employer]_ Media MD Action Taken: Data submitted to Payer Contact made with patient: No, Left message BENJIE Schreiber RN documented in this encounterAdena Regional Medical Center11-04-2024 NotePatient Outreach ([facility]) CAL MITCHELL ([id number]) 1945 M Date Time Provider Department 08/19/24 MELANIA GALINDO During your visit today, we recorded the following information about you: Melania Galindo RN 08/19/2024 12:55 PM Signed ACNiels LUIS RN Reason for review or outreach: Medication Adherence Review Details: Cholesterol FYI/REQUESTED ACTION: Summary / Findings: Atorvastatin was due for refill on/before 08.09.24. Sent mychart reminder 08.15.24- not read Called patient Patient identified by name and date of . Patient Attributed To: QAE Payer: Link_[employer]_ Media MD Action Taken: Data submitted to Payer Contact made with patient: No, Left message BENJIE Schreiber RN Allergies As of Date: 08/19/2024 (No Known Allergies) Date Reviewed: 08/06/2024 Reviewed by: Bi Cantu LPN - Fully Assessed Reason for Visit: ACM LUIS RN [[id number]] Cmt: Medication Adherence Review per Request of [...] Insulin: No - Lancets (ONE TOUCH DELICA) [facility] lancets Test blood sugar(s) one time daily. 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10-22-2024 Nurse Note* Bi Cantu LPN - 08/06/2024 1:28 PM EDT Patient not a good historian of medications. Cannot tell this Nurse what he is taking and not takiing at this time. Bi Cantu LPN August 06, 2024 1:29 PM [facility]10-22-2024 Nurse Note* Bi Cantu LPN - 08/06/2024 1:28 PM EDT Patient not a good historian of medications. Cannot tell this Nurse what he is taking and not takiing at this time. Bi Cantu LPN August 06, 2024 1:29 PM documented in this encounterAdena Regional Medical Center10-22-2024 NoteHNO ID: [id number] Author: LAURA IRAHETA MD Service: ? Author Type: Physician Type: Progress Notes Filed: 08/06/2024 17:14 Note Text: [facility] V[facility] Thor[facility] [place] DEPARTMENT OF VASCULAR SURGERY OUTPATIENT VISIT DATE [...] 250.00. Insulin: No Lancets (ONE TOUCH DELICA) [facility] lancets Test blood sugar(s) one time daily. Dx: 250.00. Insulin: No ALLERGIES: ALLERG (more content not included)...[facility]10-22-2024 History of Present illness Narrative* Laura Iraheta MD - 08/06/2024 1:25 PM EDT Images from the original note were not included. [facility] [place] DEPARTMENT OF VASCULAR SURGERY OUTPATIENT VISIT DATE [...] Cardiovascular: Negative for chest pain or recent ME Gatrointestinal: Negative for abdominal discomfort Genitourinary: Negative [...] 2024 TIME: 4:41 PM documented in this encounterCleveland [id number] Telephone encounter Note * Telephone Encounter - Josselyn Mayer APRN.CNP - 08/01/2024 9:56 AM EDT I spoke with Gustavo and communicated recommendations of medical therapy. He reports patient also expressed wanting to continue without any further intervention. Patient and family agreeable to plan. Josselyn Mayer APRN.CNP [facility]10-17-2024 Miscellaneous Notes* Telephone Encounter - Josselyn Mayer APRN.CNP - 08/01/2024 9:56 AM EDT I spoke with Gustavo and communicated recommendations of medical therapy. He reports patient also expressed wanting to continue without any further intervention. Patient and family agreeable to plan. Josselyn Mayer APRN.CNP * Telephone Encounter - Chely Nicolas RN - 07/31/2024 3:53 PM EDT Gustavo calls requesting a return call at [phone]. Chely Nicolas, BENJIE * Telephone Encounter - Josselyn Mayer APRN.CNP - 07/30/2024 10:34 AM EDT Attempted to contact patient and his family to update him on the treatment plan. Left voicemail requesting phone call back. Josselyn Mayer APRN.CNP documented in this encounterAdena Regional Medical Center10-16-2024 Telephone encounter Note * Telephone Encounter - Chely Nicolas RN - 07/31/2024 3:53 PM EDT Gustavo calls requesting a return call at [phone]. Chely Nicolas RN [facility]10-15-2024 NoteHNO ID: [id number] Author: JOSSELYN MAYER APRN.CNP Service: ? Author Type: Nurse Practitioner Type: Progress Notes Filed: 07/30/2024 10:47 Note Text: MULTI DISCIPLINARY HIGH RISK AVR CARDIAC TEAM Members present: Dr. Malcolm, Dr. Thacker, Dr. Norman, Dr. Escalera, Dr. Reddy, Gian Mayer APRN, CNP, Frank Piña CNP, ALEJANDRA Ma., [...] patient by our office. Josselyn Mayer APRN.CNP 07/30/2024[facility]10-15-2024 History of Present illness Narrative* Josselyn Mayer [...] Josselyn Mayer APRN.CNP 07/30/2024 documented in this encounterAdena Regional Medical Center10-15-2024 Telephone encounter Note * Telephone Encounter - Josselyn Mayer APRN.CNP - 07/30/2024 10:34 AM EDT Attempted to contact patient and his family to update him on the treatment plan. Left voicemail requesting phone call back. Josselyn Mayer APRN.CNP [facility]10-11-2024 Telephone encounter Note* Telephone Encounter - Kamran Ayon RPh - 07/26/2024 4:22 PM EDT Images from the original note were not included. Called and left voice message for daughter January asking her to return call to Pharmacy Anticoagulation Clinic to discuss if Lovenox was started for patient. Josselyn Mayer APRN.CNP [place], Stacey, RNYeer (2:01 PM) I sent 8 syringes [...] to test INR. Kamran Ayon PharmD, BCPS [facility]10-11-2024 Miscellaneous Notes* Telephone Encounter - Kamran Ayon RPh - 07/26/2024 4:22 PM EDT Images from the original note were not included. Called and left voice message for daughter January asking her to return call to Pharmacy Anticoagulation Clinic to discuss if Lovenox was started for patient. Josselyn Mayer APRN.Chely Cho, RNYester (2:01 PM) I sent 8 syringes [...] BCPS * Telephone Encounter - Jimmy Carrizales RP - 07/25/2024 11:45 AM EDT Left voice message asking patient at [phone] (home) or daughter January to call the Anticoagulation Clinic at [phone] re: patient recenly off warfarin for heart cath on 07/23/24. Patient was prescribed Lovenox 100 mg sq Once daily by cardiology. Next Action for Anti coag Management: TM Remote Jimmy Carrizales PharmD., CACP documented in this encounterAdena Regional Medical Center10-10-2024 Telephone encounter Note * Telephone Encounter - Jimmy Carrizales RP - 07/25/2024 11:45 AM EDT Left voice message asking patient at [phone] (home) or daughter January to call the Anticoagulation Clinic at [phone] re: patient recenly off warfarin for heart cath on 07/23/24. Patient was prescribed Lovenox 100 mg sq Once daily by cardiology. Next Action for Anti coag Management: TM Remote Jimmy Carrizales PharmD., CACP [facility]10-08-2024 NoteHNO ID: [id number] Author: PAM REDDY MD Service: Cardiovascular Surgery [...] the groin with 1% lidocaine. A pre-flushed 6-Japanese sheath was inserted into the femoral artery [...] Mitchell DATE: July 23, 2024 TIME: 10:19 [facility]10-08-2024 History of Present illness Narrative* Jeremías [...] PATIENT PRESENTS WITH AN IMPLANTABLE OR ATTACHED HORTICULTURAL SERVICES SUPERVISOR: No ALLERGIES: Reviewed and unchanged CONTRAST ALLERGY: [...] 2024 TIME: 9:13 AM documented in this encounterAdena Regional Medical Center10-08-2024 NoteHNO ID: [id number] Author: JEREMÍAS LOFTON RT (R) Service: Radiology [...] PATIENT PRESENTS WITH AN IMPLANTABLE OR ATTACHED HORTICULTURAL SERVICES SUPERVISOR: No ALLERGIES: Reviewed and unchanged CONTRAST ALLERGY: [...] Mitchell DATE: July 23, 2024 TIME: 9:13 [facility]09-30-2024 Telephone encounter Note* Telephone Encounter - Josselyn Barrow LPN - 07/15/2024 3:19 PM EDT Notified Gustavo. [facility]09-30-2024 Miscellaneous Notes* Telephone Encounter - Josselyn Barrow [...] They would like PCP recommendationbefore proceeding. Teresa Alexis RN documented in this encounterAdena Regional Medical Center09-30-2024 Telephone encounter Note * Telephone Encounter - Magdalena Laird LPN - 07/15/2024 3:15 PM EDT Son notified of results and provider message. Magdalena Laird LPN [facility]09-30-2024 Miscellaneous Notes* Telephone Encounter - Magdalena Laird [...] does off of meds. documented in this encounterAdena Regional Medical Center09-30-2024 Telephone encounter Note * Telephone Encounter - Guanakito Reno MD - 07/15/2024 2:40 PM EDT Agree. As long as he is aware. [facility]09-30-2024 Telephone encounter Note* Telephone Encounter - Teresa [...] would like PCP recommendationbefore proceeding. Teresa Alexis, BENJIE [facility]09-30-2024 Telephone encounter Note* Telephone Encounter - Carolina Alba MA - 07/15/2024 2:14 PM EDT Message left for return call. Carolina Alba MA [facility]09-30-2024 Telephone encounter Note* Telephone Encounter - Guanakito Reno MD - 07/15/2024 1:04 PM EDT Kidney function and anemia are stable. See nephrology as we had recommended. Sugars are overall notbad. Hold on amaryl. Call sugars in two weeks to see how he does off of meds. [facility]09-30-2024 NoteHNO ID: [id number] Author: GUANAKITO RENO MD Service: ? Author Type: Physician Type: Progress Notes Filed: 07/15/2024 08:05 Note Text: Apparently second visit created in error.[facility]09-30-2024 History of Present illness Narrative* Guanakito Reno MD - 07/15/2024 8:03 AM EDT Apparently second visit created in error. documented in this encounterAdena Regional Medical Center09-27-2024 Telephone encounter Note * Telephone Encounter - Guanakito Reno MD - 07/12/2024 12:49 PM EDT Noted. Thank you [facility]09-27-2024 Miscellaneous Notes* Telephone Encounter - Guanakito Reno MD - 07/12/2024 12:49 PM EDT Noted. Thank you * Telephone Encounter - Art Estes - 07/12/2024 12:34 PM EDT Attempted to find sooner apt time for patients nephrology apt, no sooner times within [facility] facilities that are faster than patients on [facility] apt. documented in this encounterAdena Regional [facility] Center09-27-2024 Telephone encounter Note * Telephone Encounter - Art Estes - 07/12/2024 12:34 PM EDT Attempted to find sooner apt time for patients nephrology apt, no sooner times within [facility] facilities that are faster than patients [facility] apt. [facility]09-27-2024 NoteHNO ID: [id number] Author: GUANAKITO RENO MD Service: ? Author [...] or worsening shortness of breath. Currently wearing [employer] heart monitor. Placed yesterday. Follows with Cardiology. [...] 250.00. Insulin: No Lancets (ONE TOUCH DELICA) [facility] lancets Test blood sugar(s) one time daily. [...] Vaping status: Never Used (more content not included)...[facility]09-27-2024 History of Present illness Narrative* Guanakito [...] or worsening shortness of breath. Currently wearing [employer] heart monitor. Placed yesterday. Follows with Cardiology. [...] 250.00. Insulin: No Lancets (ONE TOUCH DELICA) [facility] lancets Test blood sugar(s) one time daily. [...] following in detail. Dilated Retinal Exam-recommended. Covid-19 Vaccine( season) due on 06/16/2024 Influenza Vaccine(1) due [...] F02.80 - stable. 10. 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 pharmacist (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 - ICD9: V58.61, ICD10: Z79.01 Stable. Guanakito Reno MD documented in this encounterAdena Regional Medical Center09-25-2024 NoteHNO ID: [id number] Author: PAM REDDY MD Service: ? Author Type: Physician Type: Progress Notes Filed: 07/10/2024 15:17 Note Text: Pam Reddy MD Interventional Cardiology [address] [place], [place] [id number] Chief Complaint Patient presents with: Aortic Stenosis: [...] with significant dementia. Patient follow-up at the [place] office 6 months ago he was completely [...] 150 Strip 3 Lancets (ONE TOUCH DELICA) [facility] lancets Test blood sugar(s) one time chichi (more content not included)...[facility]09-25-2024 History of Present illness Narrative* Pam Reddy MD - 07/10/2024 3:07 PM EDT Images from the original note were not included. Pam Reddy MD Interventional Cardiology [address] [place] [address] Chief Complaint Patient presents with: Aortic Stenosis: [...] with significant dementia. Patient follow-up at the [place] office 6 months ago he was completely [...] airway obstruction, not elsewhere classified 10/20 Diabetes ([facility]) Diverticulosis of colon (without mention of hemorrhage) Ectatic thoracic aorta ([facility]) 06/07/2018 06/07/18 Chest CTA: There is atherosclerotic calcification of the thoracic aorta with mild fusiform ectasia of the descending component measuring 3.2 x 3.1 cm Impacted cerumen 10/20 Obesity, unspecified 11/19 Other and unspecified hyperlipidemia 10/19 Other symptoms involving cardiovascular system 10/20 Peripheral vascular disease, unspecified ([facility]) 10/20 R carotid Unspecified essential hypertension 04/18 [...] 150 Strip 3 Lancets (ONE TOUCH DELICA) [facility] lancets Test blood sugar(s) one time daily. [...] CTA CHEST (GATED) WO/W IVCON - CARDIAC BRIDGE INSTRUCTOR ORDER - EXTENDED WEAR INTERNET SALES ASSOCIATE PATCH - COMPLETE BLOOD COUNT - BASIC [...] 10, 2024 TIME: 8:06 AM PAGER/CONTACT #: [phone] documented in this encounterAdena Regional Medical Center09-25-2024 Nurse Note* Judy Díaz Family Consultant - 07/10/2024 10:00 AM EDT Applied 14 day extended wear EKG patch. Pt verbalized understanding of monitor use / diary. [facility]09-25-2024 Nurse Note* Judy Díaz Family Consultant - 07/10/2024 10:00 AM EDT Applied 14 day extended wear EKG patch. Pt verbalized understanding of monitor use / diary. documented in this encounterAdena Regional Medical Center09-25-2024 NoteHNO ID: [id number] Author: JOSSELYN MAYER APRN.CNP Service: ? Author Type: Nurse Practitioner Type: Progress Notes Filed: 07/10/2024 15:17 Note Text: Procedure Type: Isolated AVR Perioperative Outcome Estimate % Operative Mortality 9.12% Morbidity AND Mortality 21.6% Stroke 2% Renal Failure 20.9% Reoperation 5.43% Prolonged Ventilation 9.19% Deep Sternal Wound Infection 0.103% Long Hospital Stay (>14 days) 13.4% Short Hospital Stay (<6 days)* 15.7% Josselyn Mayer APRN.CNPNorthern [facility]09-[facility] Instructions* Patient Instructions* Josselyn Mayer APRN.CNP - [...] process is complete. The content on the [employer] website is not intended nor recommended as a substitute for medical advice, diagnosis, or treatment. Always seek the advice of your own physician or other qualified healthcare professional regarding any medical questions or conditions.. 2016 [employer]. All rights reserved. Topic 15599 Version 5.0 documented in this encounterAdena Regional Medical Center09-25-2024 NoteHNO ID: [id number] Author: CAL THACKER MD Service: ? Author Type: Physician Type: Progress Notes Filed: 07/10/2024 09:32 Note Text: PRIMARY CARE PHYSICIAN: Guanakito Reno [address] [place] [address] Subjective Chief Complaint Patient presents with: Aortic [...] Current Out (more content not included)...[facility]09-25-2024 History of Present illness Narrative* Cal Thacker MD - 07/10/2024 8:37 AM EDT PRIMARY CARE PHYSICIAN: Guanakito Reno [address] [place] [address] Subjective Chief Complaint Patient presents with: Aortic [...] 150 Strip 3 Lancets (ONE TOUCH DELICA) [facility] lancets Test blood sugar(s) one time daily. [...] - Exam was compared with the prior echocardiographic exam performed on 08/25/2022, no significant [...] also refer to vascular surgery and a nozzle tender for further evaluation. Family will discuss how aggressive they would like to be with potential valve replacement as well. aCl Thacker MD Cardiothoracic Surgery 07/10/2024 * Bi Cantu LPN - 07/10/2024 8:11 AM EDT CARDIAC REHAB 5 METER WALK TEST SERVICE DATE: 07/10/2024 SERVICE TIME: 8:05AM (Patient used his cane for mobile stability during his 5 Meter Walk Test.) 11.00sec 10.58sec 10.59sec ASSESSMENT: SIGNATURE: Bi Cantu LPN PATIENT NAME: Cal Mitchell DATE: July 10, 2024 TIME: 8:13 AM PAGER/CONTACT #: [phone] documented in this encounterAdena Regional Medical Center09-25-2024 NoteHNO ID: [id number] Author: BI CANTU LPN Service: ? Author [...] 10, 2024 TIME: 8:13 AM PAGER/CONTACT #: [phone] Light [facility]09-25-2024 Note HNO ID: [id number] Author: BI CANTU LPN Service: ? Author [...] 10, 2024 TIME: 8:06 AM PAGER/CONTACT #: [id number] Light A.R. [facility]09-20-2024 Telephone encounter Note* Telephone Encounter - Annamarie Garcia RPh - 07/05/2024 9:43 AM EDT [facility] Ambulatory Pharmacy Anticoagulation Clinic Anticoagulation Episode Summary Anticoagulation Care Providers Provider Role Specialty Phone number Guanakito Reno MD [facility] [phone] Cal Mitchell is a 79 year old [...] 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: FPC (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 Paroxysmal atrial fibrillation (hcc) Anticoagulation Episode Summary Current INR goal: 2.0-3.0 Assessment: INR result of 2.2 is therapeutic Plan: Current Warfarin Dosing As of 07/05/2024 Full warfarin instructions: 5 mg every day Left voice message And sent Poikost message Advised patient to continue current weekly dose as noted above Next home INR check scheduled on 07/18/2024 Annamarie Garcia RPh Clinical Pharmacist, Pharmacy Anticoagulation Clinic Pharmacy Anticoagulation Clinic Pager: [phone]. [facility]09-20-2024 Miscellaneous Notes* Telephone Encounter - Annamarie Garcia RPh - 07/05/2024 9:43 AM EDT [facility] Ambulatory Pharmacy Anticoagulation Clinic Anticoagulation Episode Summary Anticoagulation Care Providers Provider Role Specialty Phone number Guanakito Reno MD [facility] [phone] Cal Mitchell is a 79 year old [...] 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: FPC (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 Paroxysmal atrial fibrillation (hcc) Anticoagulation Episode Summary Current INR goal: 2.0-3.0 Assessment: INR result of 2.2 is therapeutic Plan: Current Warfarin Dosing As of 07/05/2024 Full warfarin instructions: 5 mg every day Left voice message And sent Poikost message Advised patient to continue current weekly dose as noted above Next home INR check scheduled on 07/18/2024 Annamarie Garcia RPh Clinical Pharmacist, Pharmacy Anticoagulation Clinic Pharmacy Anticoagulation Clinic Pager: [phone]. documented in this encounterAdena Regional Medical Center09-03-2024 Telephone encounter Note * Telephone Encounter - Jimmy Carrizales RPh - 06/18/2024 8:39 AM EDT [facility] Ambulatory Pharmacy Anticoagulation Clinic Anticoagulation Episode Summary Anticoagulation Care Providers Provider Role Specialty Phone number Guanakito eRno MD [facility] [phone] Cal Mitchell is a 78 year old [...] 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: FPC (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 Paroxysmal atrial fibrillation [...] Pharmacy Anticoagulation Clinic Pharmacy Anticoagulation Clinic Pager: [phone]. [facility]09-03-2024 Miscellaneous Notes* Telephone Encounter - Jimmy Carrizales RPh - 06/18/2024 8:39 AM EDT [facility] Ambulatory Pharmacy Anticoagulation Clinic Anticoagulation Episode Summary Anticoagulation Care Providers Provider Role Specialty Phone number Guanakito Reno MD [facility] [phone] Cal Mitchell is a 78 year old [...] Allergies Indication for Warfarin: 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 pharmacist (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 Paroxysmal atrial fibrillation [...] Pharmacy Anticoagulation Clinic Pharmacy Anticoagulation Clinic Pager: [phone]. documented in this encounterAdena Regional Medical Center08-22-2024 Instructions* Patient Instructions* Carolina Landeros APRN.CNP - 06/06/2024 12:10 PM EDT 1) Stop Actos 2) Stop melatonin 3) Try to increase protein 4) Follow up in 1 months documented in this encounterAdena Regional Medical Center08-22-2024 NoteHNO ID: [id number] Author: CAROLINA LANDEROS APRN.CNP Service: ? Author [...] 250.00. Insulin: No Lancets (ONE TOUCH DELICA) [facility] lancets Test blood sugar(s) one time daily. [...] adenopathy. Skin: General: Sk (more content not included)...[facility]08-22-2024 History of Present illness Narrative* Carolina Landeros APRN.[employer] - 06/06/2024 11:39 AM EDT This is [...] 250.00. Insulin: No Lancets (ONE TOUCH DELICA) [facility] lancets Test blood sugar(s) one time daily. [...] improvement. Carolina Landeros APRN.KOURTNEY documented in this encounterAdena Regional Medical Center08-21-2024 Telephone encounter Note * Telephone Encounter - Josselyn Barrow LPN - 06/05/2024 4:53 PM EDT Attempted to reach daughter and her is already here with patient. [facility]08-21-2024 Miscellaneous Notes* Telephone Encounter - Josselyn Barrow [...] it would probably beDr. Bill? Corrina Lennon APRN.KOURTNEY documented in this encounterAdena Regional Medical Center08-21-2024 Telephone encounter Note * Telephone Encounter - [...] can get him scheduled. Corrina Lennon APRN.KOURTNEY [facility]08-21-2024 NoteHNO ID: [id number] Author: VALERIE GRUBER APRN.KOURTNEY Service: ? Author Type: Nurse Practitioner Type: Progress Notes Filed: 06/05/2024 17:16 Note Text: This note was created using [employer]. Subjective Cal Mitchell is a 78 year old male. 78 year old male with PMH HTN, hyperlipidemia, afib, PAD, CKD, DM presents for medical complaints. Acute onset of symptoms was over a week ago Patients daughter had sent in a foodpanda / hellofood message on 06/03/24. At that time she [...] history is provided by the patient. No speech language pathologist travel was used. Edema This is a new [...] cardiovascular system 10/20: Peripheral vascular disease, unspecified ([facility]) Comment: R carotid 04/18: Unspecified essential hypertension [...] 250.00. Insulin: No Lancets (ONE TOUCH DELICA) [facility] lancets Test blood sugar(s) one time daily. [...] Negative for color change (more content not included)...[facility]08-21-2024 History of Present illness Narrative* Valerie Gruber APRN.[employer] - 06/05/2024 4:45 PM EDT This note was created using NoteWriter. Subjective Cal L Paula is a 78 year old male. 78 year old male with PMH HTN, hyperlipidemia, afib, PAD, CKD, DM presents for medical complaints. Acute onset of symptoms was over a week ago Patients daughter had sent in a foodpanda / hellofood message on 06/03/24. At that time she [...] history is provided by the patient. No speech language pathologist travel was used. Edema This is a new [...] 250.00. Insulin: No Lancets (ONE TOUCH DELICA) [facility] lancets Test blood sugar(s) one time daily. [...] change medicines related to chronic conditions. Reviewed [employer] messages where patient was requested to be seen in person by PCP Appt made for AM 06/06/24 Valerie Gruber APRN.[employer] documented in this encounterAdena Regional Medical Center08-21-2024 Telephone encounter Note * Telephone Encounter - [...] daughter Elly or son-in-law Gustavo. Thank you. [facility]08-19-2024 Telephone encounter Note* Telephone Encounter - Corrina Lennon APRN.KOURTNEY - 06/03/2024 7:42 PM EDT We should probably have him in so we can see his legs and check his blood pressure. Please help schedule. Can we also get him contact info for nephrology. If he is looking for [place], it would probably beDr. Bill? Corrina Lennon APRN.KOURTNEY [facility]08-08-2024 Telephone encounter Note* Telephone Encounter - Chely Nicolas RN - 05/23/2024 9:49 AM EDT Images from the original note were not included. Gladys Bella31 minutes ago (9:17 AM) TR Good Morning. Pt is scheduled for Valve Clinic on 07/10/24 at 8:30 am per Josselyn. [facility]08-08-2024 Miscellaneous Notes* Telephone Encounter - Chely Nicolas [...] Let's see at the valve clinic [facility] * Telephone Encounter - Chely Nicolas RN - 05/20/2024 2:46 PM EDT ----- Message from Josselyn Mayer APRN.[employer] sent at 05/20/2024 2:28 PM EDT ----- Creatinine 2.3. Per chart review he was asymptomatic but had an episode of syncope. Do you want work up first or just valve clinic? Josselyn ----- Message ----- From: Pam Reddy MD Sent: 05/18/2024 8:44 AM EDT To: Chely Nicolas RN; Josselyn Mayer APRN.[employer] Aortic stenosis need to establish care at the valve clinic [facility] * Telephone Encounter - Chely [...] establish care at the valve clinic [facility] documented in this encounterAdena Regional Medical Center08-08-2024 Telephone encounter Note * Telephone Encounter - Chely Nicolas RN - 05/23/2024 8:27 AM EDT Left message on voicemail requesting pt return call for test results and MD recommendations. Officephone number provided. Chely Nicolas RN [facility]08-08-2024 Telephone encounter Note* Telephone Encounter - Chely Nicolas RN - 05/23/2024 8:26 AM EDT Images from the original note were not included. Pam Reddy MD You; Josselyn Mayer, ÁLVARO.CNP15 hours ago (4:42 PM) Let's see at the valve clinic kam [facility]08-06-2024 Telephone encounter Note* Telephone Encounter - Claritza Hardin - 05/21/2024 3:10 PM EDT Patient's son in law called in to confirm appointment with Dr. Reddy. Thanks Claritza Hardin [facility]08-06-2024 Miscellaneous Notes* Telephone Encounter - Claritza Hardin - 05/21/2024 3:10 PM EDT Patient's son in law called in to confirm appointment with Dr. Reddy. Thanks Claritza Hardin * Telephone Encounter - Josselyn Mayer APRN.[employer] - 05/20/2024 2:29 PM EDT Attempted to [...] you, Josselyn Mayer APRN.CNP documented in this encounterAdena Regional Medical Center08-05-2024 Telephone encounter Note * Telephone Encounter - [...] EDT To: Chely Nicolas RN; Josselyn Mayer APRN.CNP Aortic stenosis need to establish care at the valve clinic sleik [facility]08-05-2024 Telephone encounter Note* Telephone Encounter - Josselyn [...] with Nephrologists. Thank you, Josselyn Mayer APRN.CNP [facility] Work Phone: [phone]) 167-704508-05-2024 Telephone encounter Note* Telephone Encounter - Chely Nicoals RN - 05/20/2024 9:59 AM EDT Left message on voicemail requesting pt return call for test results. Office phone number provided. Chely Nicolas RN [facility]08-05-2024 Telephone encounter Note* Telephone Encounter - Chely Nicolas RN - 05/20/2024 9:58 AM EDT ----- Message from Pam Reddy MD sent at 05/18/2024 8:44 AM EDT ----- Aortic stenosis need to establish care at the valve clinic kam [facility]08-02-2024 Telephone encounter Note* Telephone Encounter - Dorothy Sainz [facility] - 05/17/2024 9:22 AM EDT [facility] Ambulatory Pharmacy Anticoagulation Clinic Anticoagulation Episode Summary Anticoagulation Care Providers Provider Role Specialty Phone number Guanakito Reno MD [facility] [phone] Cal Mitchell is a 78 year old [...] 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: FPC (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 Paroxysmal atrial fibrillation (hcc) Anticoagulation Episode Summary Current INR goal: 2.0-3.0 Assessment: INR result of 2.8is therapeutic Plan: Current Warfarin Dosing As of 05/17/2024 Full warfarin instructions: 5 mg every day Sent [employer] message Advised patient to continue current weekly dose as noted above Next home INR check scheduled on 05/30/2024 Dorothy Sainz RPh Clinical Pharmacist, Pharmacy Anticoagulation Clinic Pharmacy Anticoagulation Clinic Pager: [phone]. [facility]08-02-2024 Miscellaneous Notes* Telephone Encounter - Dorothy Sainz RPh - 05/17/2024 9:22 AM EDT [facility] Ambulatory Pharmacy Anticoagulation Clinic Anticoagulation Episode Summary Anticoagulation Care Providers Provider Role Specialty Phone number Guanakito Reno MD [facility] [phone] Cal Mitchell is a 78 year old [...] 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: FPC (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 Paroxysmal atrial fibrillation (hcc) Anticoagulation Episode Summary Current INR goal: 2.0-3.0 Assessment: INR result of 2.8is therapeutic Plan: Current Warfarin Dosing As of 05/17/2024 Full warfarin instructions: 5 mg every day Sent [employer] message Advised patient to continue current weekly dose as noted above Next home INR check scheduled on 05/30/2024 Dorothy Sainz RPh Clinical Pharmacist, Pharmacy Anticoagulation Clinic Pharmacy Anticoagulation Clinic Pager: [phone]. documented in this encounterAdena Regional Medical Center07-22-2024 Instructions* Patient Instructions* Corrina Lennon APRN.CNP - 05/06/2024 6:38 PM EDT Continue to try to get the stool sample. Continue the same medication. Schedule with nephrology (kidney doctor). Recheck with Dr. Reno in 2 months. documented in this encounterAdena Regional Medical Center07-22-2024 History of Present illness Narrative* Corrina Lennon APRN.[employer] - 05/06/2024 6:09 PM EDT This is [...] a fall. Was outside and grabbed the [id number]-muko and shook it for a few seconds [...] 250.00. Insulin: No Lancets (ONE TOUCH DELICA) [facility] lancets Test blood sugar(s) one time daily. [...] as needed for worsening/no improvement. Corrina Lennon APRN.[employer] documented in this encounterAdena Regional Medical Center07-18-2024 History of Present illness Narrative* Jody Queen [...] PATIENT PRESENTS WITH AN IMPLANTABLE OR ATTACHED HORTICULTURAL SERVICES SUPERVISOR: No RADIOLOGY DEPARTMENT: Ultrasound PERIPHERAL IV DATA: Not applicable SIGNED BY: Jody Queen RDMS May 02, 2024 10:49 AM documented in this encounterAdena Regional Medical Center07-15-2024 Telephone encounter Note * Telephone Encounter - Stephany Graves MA - 04/29/2024 9:48 AM EDT Spoke with daughter. She stated she was suppose to call the local wool washer but didn't have the number and then forgot to call office to get it. Also she is not able to log into the [employer] account, states she forgot password. I have sent number for Dr. Khan to pt home along with [employer] number so she can get [employer] account fixed and call to set up his appt with wool washer. Pt needs refill of Lipitor sent to [facility]. Stephany Graves MA [facility]07-15-2024 Miscellaneous Notes* Telephone Encounter - Stephany Graves MA - 04/29/2024 9:48 AM EDT Spoke with daughter. She stated she was suppose to call the local wool washer but didn't have the number and then forgot to call office to get it. Also she is not able to log into the [employer] account, states she forgot password. I have sent number for Dr. Khan to pt home along with [employer] number so she can get [employer] account fixed and call to set up his appt with wool washer. Pt needs refill of Lipitor sent to [...] nephrology? Was ordered previously. documented in this encounterAdena Regional Medical Center07-10-2024 Telephone encounter Note * Telephone Encounter - Mason Ruthie, [facility] - 04/24/2024 9:45 AM EDT [facility] Ambulatory Pharmacy Anticoagulation Clinic Anticoagulation Episode Summary Anticoagulation Care Providers Provider Role Specialty Phone number Guanakito Reno MD [facility] [phone] Cal Mitchell is a 78 year old [...] Allergies Indication for Warfarin: 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 pharmacist (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 Paroxysmal atrial fibrillation (hcc) Anticoagulation Episode Summary Current INR goal: 2.0-3.0 Assessment: INR result of 2.7 is therapeutic Plan: Current Warfarin Dosing As of 04/24/2024 Full warfarin instructions: 5 mg every day Sent [employer] message Advised patient to continue current weekly dose as noted above Next home INR check scheduled on 05/07/2024 Ruthie Cuevas RPh Clinical Pharmacist, Pharmacy Anticoagulation Clinic Pharmacy Anticoagulation Clinic Pager: [phone]. [facility]07-10-2024 Miscellaneous Notes* Telephone Encounter - Ruthie Cuevas RPh - 04/24/2024 9:45 AM EDT [facility] Ambulatory Pharmacy Anticoagulation Clinic Anticoagulation Episode Summary Anticoagulation Care Providers Provider Role Specialty Phone number Guanakito Reno MD [facility] [phone] Cal Mitchell is a 78 year old [...] Allergies Indication for Warfarin: 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 pharmacist (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 Paroxysmal atrial fibrillation (hcc) Anticoagulation Episode Summary Current INR goal: 2.0-3.0 Assessment: INR result of 2.7 is therapeutic Plan: Current Warfarin Dosing As of 04/24/2024 Full warfarin instructions: 5 mg every day Sent [employer] message Advised patient to continue current weekly dose as noted above Next home INR check scheduled on 05/07/2024 Ruthie Cuevas RPh Clinical Pharmacist, Pharmacy Anticoagulation Clinic Pharmacy Anticoagulation Clinic Pager: [phone]. documented in this encounterAdena [facility]07-[facility]24 Telephone encounter Note * Telephone Encounter - Geovanna Hinds MA - 04/19/2024 4:14 PM EDT Left message for patient to return call. Geovanna Hinds Ma [facility]07-05-2024 Telephone encounter Note* Telephone Encounter - Guanakito Reno MD - 04/19/2024 3:46 PM EDT Anemia is stable. I still need an ifobt done since he is on blood thinners to rule out gi blood loss. It may well be related to his kidneys. They are stable but worse. Did he get set up with nephrology? Was ordered previously. [facility]06-24-2024 Telephone encounter Note* Telephone Encounter - Corrina Lennon APRN.CNP - 04/08/2024 3:45 PM EDT Pt aware. Corrina Lennon APRN.KOURTNEY [facility]06-24-2024 Miscellaneous Notes* Telephone Encounter - Corrian Lennon APRN.CNP - 04/08/2024 3:45 PM EDT Pt aware. Corrina Lennon APRN.[employer] * Telephone Encounter - Josselyn Barrow LPN [...] two weeks. See nephrology documented in this encounterAdena [facility] Center06-24-2024 Telephone encounter Note * Telephone Encounter - Alejandro Molina RP - 04/08/2024 3:36 PM EDT [facility] Ambulatory Pharmacy Anticoagulation Clinic Anticoagulation Episode Summary Anticoagulation Care Providers Provider Role Specialty Phone number Guanakito Reno MD [facility] [phone] Cal Mitchell is a 78 year old [...] Pharmacy Anticoagulation Clinic Pharmacy Anticoagulation Clinic Pager: [phone]. [facility]06-24-[facility]24 Miscellaneous Notes* Telephone Encounter - Alejandro Molina RPh - 04/08/2024 3:36 PM EDT [facility] Ambulatory Pharmacy Anticoagulation Clinic Anticoagulation Episode Summary Anticoagulation Care Providers Provider Role Specialty Phone number Guanakito Reno MD [facility] [phone] Cal Mitchell is a 78 year old [...] Pharmacy Anticoagulation Clinic Pharmacy Anticoagulation Clinic Pager: [phone]. documented in this encounterAdena [facility] Medical Center06-24-2024 Instructions* Patient Instructions* Corrina Lennon APRN.CNP - 04/08/2024 3:11 PM EDT Continue the same medication. Get the repeat labs in 2 weeks. Get the echo, carotid ultrasound, kidney ultrasound as planned. Schedule w/ nephrology. Schedule back in 1 month for recheck. documented in this encounterAdena Regional Medical Center06-24-2024 History of Present illness Narrative* Corrina Lennon [...] 250.00. Insulin: No Lancets (ONE TOUCH DELICA) [facility] lancets Test blood sugar(s) one time daily. [...] agrees with the plan. documented in this encounterAdena [facility] Medical Center06-22-2024 Telephone encounter Note * Telephone Encounter - [...] Diana Jimenez PharmD, MPH Anticoagulation Clinic Pharmacist [phone] [facility]06-22-2024 Miscellaneous Notes* Telephone Encounter - Nabila Jimenez [...] Diana Jimenez PharmD, MPH Anticoagulation Clinic Pharmacist [phone] * Telephone Encounter - Nabila Jimenez RPh - 04/06/2024 3:49 PM EDT Called and LM for patient and sent MyChart referenced in VM (though patient has not logged into [employer] since December). Patient was asked to call/page PAC at next convenience to confirm receipt of message Will follow up on Monday and expect next INR on that date Diana Jimenez PharmD, MPH Anticoagulation Clinic Pharmacist [phone] * Telephone Encounter - Yamilka Heath RN - 04/04/2024 1:14 PM EDT Alana Perez calling in INR result today (04/04.) result has been addressed below. Apurva Heath, BENJIE Pharmacy Anticoagulation Clinic * Telephone Encounter - Jimmy Carrizales [facility] - 04/04/2024 12:26 PM EDT [facility] Ambulatory Pharmacy Anticoagulation Clinic Anticoagulation Episode Summary Anticoagulation Care Providers Provider Role Specialty Phone number Guanakito Reno MD [facility] [phone] Cal Mitchell is a 78 year old [...] 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: FPC (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 Paroxysmal atrial fibrillation [...] Pharmacy Anticoagulation Clinic Pharmacy Anticoagulation Clinic Pager: [phone]. documented in this encounterAdena [facility] Medical Center06-22-2024 Telephone encounter Note * Telephone Encounter - Nabila Jimenez RPh - 04/06/2024 3:49 PM EDT Called and LM for patient and sent MyChart referenced in VM (though patient has not logged into [employer] since December). Patient was asked to call/page PAC at next convenience to confirm receipt of message Will follow up on Monday and expect next INR on that date Diana Jimenez, PharmD, MPH Anticoagulation Clinic Pharmacist [phone] [facility]06-21-2024 Telephone encounter Note* Telephone Encounter - Josselyn Barrow LPN - 04/05/2024 4:25 PM EDT Has visit scheduled with Corrina on Monday will route to their pool. If he keeps that appt can you please close for us? Thank you. [facility]06-21-[facility] Telephone encounter Note* Telephone Encounter - Carolina Alba MA - 04/05/2024 4:19 PM EDT No answer. Left detailed message stating we were calling in regards to results and needing to discuss a few things. Advised to return call. Carolina Alba MA [facility]06-21-2024 Telephone encounter Note* Telephone Encounter - Jonelle Worley LPN - 04/05/2024 10:41 AM EDT Phoned patient left message to return call and ask to speak to a nurse. [facility]06-[facility] Telephone encounter Note* Telephone Encounter - Guanakito Reno MD - 04/05/2024 10:21 AM EDT Anemia is stable. May be related to his kidneys. Renal function continues to be slightly worse. Get renal us as ordered. Check ifobt. Recheck labs in two weeks. See nephrology [facility]06-20-2024 Telephone encounter Note* Telephone Encounter - Yamilka Heath RN - 04/04/2024 1:14 PM EDT Alana Perez calling in INR result today (04/04.) result has been addressed below. Apurva Heath, RN Pharmacy Anticoagulation Clinic [facility]06-20-2024 Telephone encounter Note* Telephone Encounter - Jimmy Carrizales, [facility] - 04/04/2024 12:26 PM EDT [facility] Ambulatory Pharmacy Anticoagulation Clinic Anticoagulation Episode Summary Anticoagulation Care Providers Provider Role Specialty Phone number Guanakito Reno MD [facility] [phone] Cal Mitchell is a 78 year old [...] Allergies Indication for Warfarin: 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 pharmacist (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 Paroxysmal atrial fibrillation (hcc) Anticoagulation Episode Summary Current INR goal: 2.0-3.0 Assessment: INR result of 6.0 is SUPRAtherapeutic due to: unknown cause - did not speak to patient Plan: Current Warfarin Dosing As of 04/04/2024 Full warfarin instructions: 04/04: Hold; Otherwise 7.5 mg every Mon; 5 mg all other days Left voice message Advised patient to HOLD warfarin and call the PAC back to discuss PAC will follow up tomorrow if no return call tomorrow Jimmy Carrizales [facility] Clinical Pharmacist, Pharmacy Anticoagulation Clinic Pharmacy Anticoagulation Clinic Pager: [phone]. [facility]06-11-2024 Instructions* Patient Instructions* Guanakito Reno MD - 03/26/2024 5:00 PM EDT Stop lisinopril hctz Start lisinopril. Call if any shortness of breath or edema. Weigh daily. Call us if you gain more than 3-4 lbs in a 24 hour period Get carotid ultrasound Recheck labs end of this week or early next. documented in this encounterAdena Regional Medical Center06-11-2024 History of Present illness Narrative* Guanakito Reno [...] mg daily. Needs 30 day supply to [employer] while waiting for shipment from [employer]. No myalgias HTN: Continues on Zestoretic 20-12.5 [...] 250.00. Insulin: No Lancets (ONE TOUCH DELICA) [facility] lancets Test blood sugar(s) one time daily. [...] Advance Directive Discussion due on 10/16/2023 Covid-19 Vaccine( season) due on 12/14/2023 HbA1C due on 02/13/2024 [...] ICD10: G30.9, F01.50, F02.80 - stable. 9. 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 pharmacist (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 - ICD9: V58.61, [...] two weeks or prn. documented in this encounterAdena Regional Medical Center06-10-2024 History of Present illness Narrative* Pam Reddy MD - 03/25/2024 5:19 PM EDT Images from the original note were not included. Pam Reddy MD Interventional Cardiology [address] [place] [address] [phone] Chief Complaint Patient presents with: Follow Up [...] 150 Strip 3 Lancets (ONE TOUCH DELICA) [facility] lancets Test blood sugar(s) one time daily. Dx: 250.00. Insulin: No1 Each 0 Current Facility-Administered Medications Medication Dose Route Frequency Provider Last Rate Last Admin perflutren lipid microspheres 1.3 mL in NaCl (PF) 0.9% 10 mL injection (DEFINITY) INTRAVENOUS DIRECTED PRPam Fabian MD sodium chloride 0.9 % (flush) 10 mL (BD POSIFLUSH) 10 mL INTRAVENOUS DIRECTED Pam Ascencio MD Review of Systems Constitutional: Negative for [...] to correct any errors. documented in this encounterAdena Regional Medical Center05-24-2024 History of Present illness Narrative* Melania Galindo [...] and date of . Patient Attributed To: [facility] Payer: [facility] Action Taken: Data submitted to [employer] message to patient Notation made to upcoming appointment notes requesting provider follow up Contact made with patient: No, Chart review only. Melania Galindo RN documented in this encounterAdena Regional Medical Center05-23-2024 Telephone encounter Note * Telephone Encounter - Jimmy Carrizales, [facility] - 03/07/2024 11:54 AM EDT [facility] Ambulatory Pharmacy Anticoagulation Clinic Anticoagulation Episode Summary Anticoagulation Care Providers Provider Role Specialty Phone number Guanakito Reno MD [facility] [phone] Cal Mitchell is a 78 year old [...] 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: FPC (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 Paroxysmal atrial fibrillation [...] Pharmacy Anticoagulation Clinic Pharmacy Anticoagulation Clinic Pager: [phone]. [facility]05-23-2024 Miscellaneous Notes* Telephone Encounter - Jimmy Carrizales RPh - 03/07/2024 11:54 AM EDT [facility] Ambulatory Pharmacy Anticoagulation Clinic Anticoagulation Episode Summary Anticoagulation Care Providers Provider Role Specialty Phone number Guanakito Reno MD [facility] [phone] Cal Mitchell is a 78 year old [...] 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: FPC (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 Paroxysmal atrial fibrillation [...] Pharmacy Anticoagulation Clinic Pharmacy Anticoagulation Clinic Pager: [phone]. documented in this encounterAdena Regional Medical Center05-01-2024 Telephone encounter Note * Telephone Encounter - Ruthie Cuevas [facility] - 02/14/2024 9:04 AM EDT [facility] Ambulatory Pharmacy Anticoagulation Clinic Anticoagulation Episode Summary Anticoagulation Care Providers Provider Role Specialty Phone number Guanakito Reno MD [facility] [phone] Cal Mitchell is a 78 year old [...] 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: FPC (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 Paroxysmal atrial fibrillation (hcc) Anticoagulation Episode Summary Current INR goal: 2.0-3.0 Assessment: INR result of 2.2 is therapeutic Plan: Current Warfarin Dosing As of 02/14/2024 Full warfarin instructions: 7.5 mg every Tue; 5 mg all other days Left voice message For /January. Advised patient to continue current weekly dose as noted above Next home INR check scheduled on 02/28/2024 Ruthie Cuevas RPh Clinical Pharmacist, Pharmacy Anticoagulation Clinic Pharmacy Anticoagulation Clinic Pager: [phone]. [facility]05-01-2024 Miscellaneous Notes* Telephone Encounter - Ruthie Cuevas RPh - 02/14/2024 9:04 AM EDT [facility] Ambulatory Pharmacy Anticoagulation Clinic Anticoagulation Episode Summary Anticoagulation Care Providers Provider Role Specialty Phone number uGanakito Reno MD [facility] [phone] Cal Mitchell is a 78 year old [...] 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: FPC (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 Paroxysmal atrial fibrillation [...] Pharmacy Anticoagulation Clinic Pharmacy Anticoagulation Clinic Pager: [phone]. documented in this encounterAdena [facility] Medical Center04-03-2024 Miscellaneous Notes* Telephone Encounter - Darrell Meyer [...] Thank you. Betzy Colvin. documented in this encounterAdena Regional Medical Center04-03-2024 Miscellaneous Notes* Telephone Encounter - Betzy Colvin - 01/17/2024 3:22 PM EDT Patient's daughter calling to request medication that is on patient list pioglitazone (ACTOS) 15 mg tablet Please [facility] to [facility]. documented in this encounterAdena Regional Medical Center04-01-2024 Miscellaneous Notes* Telephone Encounter - Alejandro Molina RPh - 01/15/2024 10:32 AM EDT [facility] Ambulatory Pharmacy Anticoagulation Clinic Anticoagulation Episode Summary Anticoagulation Care Providers Provider Role Specialty Phone number Guanakito Reno MD [facility] [phone] Cal Mitchell is a 78 year old [...] instructed to call Pharmaceutical Anticoagulation Clinic at [phone] with any questionsor concerns. Alejandro Molina RP Clinical Pharmacist, Pharmacy Anticoagulation Clinic Pharmacy Anticoagulation Clinic Pager: [phone] documented in this encounterAdena Regional Medical Center03-08-2024 Instructions* Patient Instructions* Carolina Landeros APRN.CNS - 12/22/2023 3:30 PM EST 1) Telfa dressing change daily 2) Letter for [facility] 3) Follow up in 4) Melatonin 3mg qhs and may repeat once through night if needed documented in this encounterAdena Regional Medical Center03-08-2024 History of Present illness Narrative* Carolina Landeros [...] try try OTC melatonin Follow up in Discussed treatment plan and patient voices understanding. Patient's questions answered appropriately. Medications and potential side effects were discussed and patient voices understanding. Return to the office as scheduled or as needed for worsening/no improvement. Carolina Landeros APRN.CNS The patient indicates understanding of these issues and agrees with the plan. documented in this encounterAdena Regional Medical Center03-07-2024 Miscellaneous Notes* Telephone Encounter - Teresa Alexis [...] - 12/21/2023 5:07 PM EST Please see providerElma routing comment: This patient needs a CT [...] 7. TETANUS: 04/22/21 Protocols used: Cuts and [id number] documented in this encounterAdena Regional Medical Center03-07-2024 Miscellaneous Notes* Telephone Encounter - Jimmy Carrizales [facility] - 12/21/2023 9:03 AM EST [facility] Ambulatory Pharmacy Anticoagulation Clinic Anticoagulation Episode Summary Anticoagulation Care Providers Provider Role Specialty Phone number Guanakito Reno MD [facility] [phone] Cal Mitchell is a 78 year old [...] Allergies Indication for Warfarin: 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 pharmacist (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 Paroxysmal atrial fibrillation (hcc) Anticoagulation Episode Summary Current INR goal: 2.0-3.0 Assessment: INR result of 2.6 is therapeutic Plan: Current Warfarin Dosing As of 12/21/2023 Full warfarin instructions: 7.5 mg every Tue; 5 mg all other days Left voice message Advised patient to continue current weekly dose as noted above Next home INR check scheduled on 01/04/2024 Jimmy Carrizales [facility] Clinical Pharmacist, Pharmacy Anticoagulation Clinic Pharmacy Anticoagulation Clinic Pager: [phone]. documented in this encounterAdena Regional Medical Center02-19-2024 Miscellaneous Notes* Telephone Encounter - Daniel ([employer])Ashley - 12/04/2023 11:53 AM EST PATIENT CALL Received call from Summer with [facility] to report home meter result for patient. [facility] hasalready addressed this result (see below); nothing further needed at this time. Ashley Sanchez CPhT (Auto Self Service Station Attendant) Pharmacy Anticoagulation Clinic * Telephone Encounter - Alejandro Molina RPh - 12/04/2023 9:44 AM EST [facility] Ambulatory Pharmacy Anticoagulation Clinic Anticoagulation Episode Summary Anticoagulation Care Providers Provider Role Specialty Phone number Guanakito Reno MD [facility] [phone] Cal Mitchell is a 78 year old [...] instructed to call Pharmaceutical Anticoagulation Clinic at [phone] with any questionsor concerns. Alejandro Molina [facility] Clinical Pharmacist, Pharmacy Anticoagulation Clinic Pharmacy Anticoagulation Clinic Pager: [phone] documented in this encounterAdena Regional Medical Center12-06-2023 Miscellaneous Notes* Telephone Encounter - Ruthie Cuevas RPh - 09/20/2023 1:16 PM EST [facility] Ambulatory Pharmacy Anticoagulation Clinic Anticoagulation Episode Summary Anticoagulation Care Providers Provider Role Specialty Phone number Guanakito Reno MD [facility] [phone] Cal Mitchell is a 78 year old [...] Allergies Indication for Warfarin: 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 pharmacist (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 Paroxysmal atrial fibrillation [...] Pharmacy Anticoagulation Clinic Pharmacy Anticoagulation Clinic Pager: [phone]. documented in this encounterAdena Regional Medical Center11-21-2023 History of Present illness Narrative* Mouna Vallecillo, RN - 09/05/2023 1:48 PM ESTSummary: Medication Adherence review per request of payer ACM LUIS RN Action/FYI: Medication Adherence review completed per request of payer. NO PROVIDER ACTION REQUIRED Patient identified by name and date of . Patient Attributed To: QAE Payer: [facility] Reason for review or outreach: Medication Adherence Medication Adherence Review Details: Diabetes Summary / Findings: GLIMEPIRIDE -- Refill Due - 07/18/2023 ATORVASTATIN -- Refill Due - 08/21/2023 Pharmacy - [facility] - Action Taken: Data submitted to [employer] message to patient Contact made with patient: No, Chart review only. documented in this encounterAdena Regional Medical Center11-07-2023 Miscellaneous Notes* Telephone Encounter - Twin Cole [facility] - 08/22/2023 9:46 AM EST [facility] Ambulatory Pharmacy Anticoagulation Clinic Anticoagulation Episode Summary Anticoagulation Care Providers Provider Role Specialty Phone number Guanakito Reno MD [facility] [phone] Cal Mitchell is a 78 year old [...] Pharmacy Anticoagulation Clinic Pharmacy Anticoagulation Clinic Pager: [phone]. documented in this encounterAdena Regional Medical Center11-01-2023 Miscellaneous Notes* Telephone Encounter - Gerardo Fountain [...] as message only states "one." Please phone Elly with reply: [phone] Copied and pasted provider's message from previous encounter: Sugars are really good. Stop his glimepiride. Call sugars in two weeks. His kidney function is worse, recheck labs in one . Make sure drinking adequate fluids. documented in this encounterAdena Regional Medical Center10-31-2023 Miscellaneous Notes* Telephone Encounter - Niels Rodriges [...] sure drinking adequate fluids. documented in this encounterAdena Regional Medical Center10-30-2023 History of Present illness Narrative* Guanakito Reno [...] 250.00. Insulin: No Lancets (ONE TOUCH DELICA) [facility] lancets Test blood sugar(s) one time daily. [...] YR, HIGH DOSE, QUADRIVALENT (FLUZONE HIGH-DOSE) - [employer] COVID-19 VACCINE (2022- SEASON) AGE 12+ YR [...] N18.31 Guanakito Reno MD documented in this encounterAdena Regional Medical Center10-11-2023 Miscellaneous Notes* Telephone Encounter - Ruthie Cuevas RP - 07/26/2023 4:50 PM EDT [facility] Ambulatory Pharmacy Anticoagulation Clinic Anticoagulation Episode Summary Anticoagulation Care Providers Provider Role Specialty Phone number Guanakito Reno MD [facility] [phone] Cal Mitchell is a 78 year old [...] 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: FPC (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 Paroxysmal atrial fibrillation (hcc) Anticoagulation Episode Summary Current INR goal: 2.0-3.0 Assessment: INR result of 2.5 is therapeutic Plan: Current Warfarin Dosing As of 07/26/2023 Full warfarin instructions: 7.5 mg every Tue; 5 mg all other days LVMX. Advised patient to continue current weekly dose as noted above Next home INR check scheduled on 08/09/2023 Ruthie Cuevas RPh Clinical Pharmacist, Pharmacy Anticoagulation Clinic Pharmacy Anticoagulation Clinic Pager: [phone]. documented in this encounterAdena Regional Medical Center09-19-2023 Miscellaneous Notes* Telephone Encounter - Pily Cuevas - 07/04/2023 3:50 PM EDT Patient needs to have a gap supply sent to [facility] as well please send at least a weeks worth. Patient has been identified by name and date of : Yes Requested Prescriptions Pending Prescriptions Disp Refills lisinopril-hydroCHLOROthiazide (ZESTORETIC) 20-12.5 mg per tablet 90 tablet 0 Sig: Take 1 tablet by mouth every morning. RX INSTRUCTIONS: Patient aware RX escripted to mail away pharmacy. No need to notify patient. Pily Chaparro Pss documented in this encounterAdena Regional Medical Center09-12-2023 History of Present illness Narrative* Lizette Cardenas RN - 2023 3:08 PM EDT ACM LUIS RN Action/FYI: Medication Adherence review completed per request of payer. NO PROVIDER ACTION REQUIRED Please see requests in the Summary/Findings section below Patient identified by name and date of . Patient Attributed To: E Payer: [facility] Reason for review or outreach: Medication Adherence Medication Adherence Review Details: Hypertension Summary / Findings: Lisinopril was due for refill on: 05/16/23 [facility] Action Taken: Data submitted to [employer] message to patient Other Contact made with patient: No, Chart review only. Signature: Lizette Cardenas RN documented in this encounterAdena Regional Medical Center08-07-2023 Miscellaneous Notes* Telephone Encounter - Alejandro Molina RPh - 05/22/2023 10:12 AM EDT [facility] Ambulatory Pharmacy Anticoagulation Clinic Anticoagulation Episode Summary Anticoagulation Care Providers Provider Role Specialty Phone number Guanakito Reno MD [facility] [phone] Cal Mitchell is a 77 year old [...] instructed to call Pharmaceutical Anticoagulation Clinic at [phone] with any questionsor concerns. Alejandro Molina RPh Clinical Pharmacist, Pharmacy Anticoagulation Clinic Pharmacy Anticoagulation Clinic Pager: [phone] documented in this encounterAdena Regional Medical Center07-10-2023 Miscellaneous Notes* Telephone Encounter - Alejandro Molina RPh - 04/24/2023 10:04 AM EDT [facility] Ambulatory Pharmacy Anticoagulation Clinic Anticoagulation Episode Summary Anticoagulation Care Providers Provider Role Specialty Phone number Guanakito Reno MD [facility] [phone] Cal Mitchell is a 77 year old [...] Pharmacy Anticoagulation Clinic Pharmacy Anticoagulation Clinic Pager: [phone]. documented in this encounterAdena Regional Medical Center07-05-2023 Miscellaneous Notes* Telephone Encounter - Anna Mas - 04/19/2023 3:56 PM EDT Patient called to add Glimepiride to list of medications. * Telephone Encounter - Leslie Perez Pss - 04/19/2023 3:40 PM EDT Patient has [...] pharmacy. No need to notify patient. Leslie Horne documented in this encounterAdena Regional Medical Center06-13-2023 Miscellaneous Notes* Telephone Encounter - Twin Cole, [facility] - 03/28/2023 3:22 PM EDT [facility] Ambulatory [facility]acy Antico[facility] Clinic Anticoagulation Episode Summary Anticoagulation Care Providers Provider Role Specialty Phone number Guanakito Reno MD [facility] [phone] Cal Mitchell is a 77 year old [...] Pharmacy Anticoagulation Clinic Pharmacy Anticoagulation Clinic Pager: [phone]. documented in this encounterAdena Regional Medical Center05-01-2023 History of Present illness Narrative* Dory Mayers RN - 02/13/2023 4:13 PM EDT EVENT MONITOR DISPOSABLE PATCH INSTRUCTIONS Patient Name: Cal Mitchell [facility] Number: [id number] Skin prepped and cleansed with alcohol Patch secured to prepped area Monitor Activated Serial #: [id number] Patient Instructed: Prescribed order timeframe Bathing guidelines Usage of event button and diary documentation Return of monitor at the end of prescribed order Call with problems [phone] or [phone]. [phone] Patient expresses a good understanding of instructions Dory Mayers RN * Pam Reddy MD - 02/13/2023 4:01 PM EDT Images from the original note were not included. Pam Reddy MD Interventional Cardiology [facility] [address] [place], [place] [address] [phone] Chief Complaint Patient presents with: Established Patient [...] 150 Strip 3 Lancets (ONE TOUCH DELICA) [facility] lancets Test blood sugar(s) one time daily. Dx: 250.00. Insulin: No1 Each 0 Current Facility-Administered Medications Medication Dose Route Frequency Provider Last Rate Last Admin perflutren lipid microspheres 1.3 mL in NaCl (PF) 0.9% 10 mL injection (DEFINITY) INTRAVENOUS DIRECTED PRAngely Reddy MD sodium chloride 0.9 % (flush) [...] to correct any errors. documented in this encounterAdena Regional Medical Center04-24-2023 History of Present illness Narrative* Guanakito Reno [...] 8 hours as needed. blood sugar diagnostic (OpenBSD FoundationUCH ULTRA TEST) test strip Test blood sugar(s) [...] YR Guanakito Reno MD documented in this encounterAdena Regional Medical Center04-03-2023 Miscellaneous Notes* Telephone Encounter - Corrina Lennon [...] notify patient. Winifred Zazueta documented in this encounterAdena Regional Medical Center03-30-2023 Miscellaneous Notes* Telephone Encounter - Jimmy Carrizales RPh - 01/12/2023 4:25 PM EDT [facility] Ambulatory Pharmacy Anticoagulation Clinic Anticoagulation Episode Summary Anticoagulation Care Providers Provider Role Specialty Phone number Guanakito Reno MD [facility] Family Medicine [phone] Cal Mitchell is a 77 year old [...] Allergies Indication for Warfarin: 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 pharmacist (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 Paroxysmal atrial fibrillation [...] verbalizes understanding of the plan. Jimmy Carrizales [facility] Clinical Pharmacist, Pharmacy Anticoagulation Clinic Pharmacy Anticoagulation Clinic Pager: [phone]. * Telephone Encounter - Ruthie Cuevas, [facility] - 01/11/2023 9:21 AM EDT [facility] Ambulatory [facility]acy Anticoagulation Clinic Anticoagulation Episode Summary Anticoagulation Care Providers Provider Role Specialty Phone number Guanakito Reno MD [facility] Family Medicine [phone] Cal Mitchell is a 77 year old [...] 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: FPC (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 Paroxysmal atrial fibrillation (hcc) Anticoagulation Episode Summary Current INR goal: 2.0-3.0 Assessment: INR result of 4.0 is SUPRAtherapeutic due to: unknown cause - did not speak to patient Plan: Current Warfarin Dosing As of 01/09/2023 Full warfarin instructions: 01/11: Hold; Otherwise 7.5 mg every Tue, Kaye; 5 mg all other days Left voice message Advised patient to hold warfarin today and try to call back to let us know he got our message and discuss the result. LM for both the pt and his daughter, January. Ruthie Cuevas RPh Clinical Pharmacist, Pharmacy Anticoagulation Clinic Pharmacy Anticoagulation Clinic Pager: [phone]. * Telephone Encounter - Alejandro Molina RPh - 01/09/2023 4:34 PM EDT Patient was due to test INR today. Will continue to monitor for results. documented in this encounterAdena Regional Medical Center03-06-2023 Miscellaneous Notes* Telephone Encounter - Alejandro Molina RPh - 12/19/2022 10:37 AM EST [facility] Amb[facility] An[facility] Clinic Anticoagulation Episode Summary Anticoagulation Care Providers Provider Role Specialty Phone number Guanakito Reno MD [facility] [phone] Cal Mitchell is a 77 year old [...] instructed to call [facility] at [phone] with any questionsor concerns. Alejandro Molina RPh Clinical Pharmacist, Pharmacy Anticoagulation Clinic Pharmacy Anticoagulation Clinic Pager: [phone] documented in this encounterAdena Regional Medical Center02-13-2023 Miscellaneous Notes* Telephone Encounter - Alejandro Molina RPh - 11/28/2022 10:18 AM EST [facility] Amb[facility] Antico[facility] Clinic Anticoagulation Episode Summary Anticoagulation Care Providers Provider Role Specialty Phone number Guanakito Reno MD [facility] [phone] Cal Mitchell is a 77 year old [...] instructed to call [facility] at [phone] with any questionsor concerns. Alejandro Molina RPh Clinical Pharmacist, Pharmacy Anticoagulation Clinic Pharmacy Anticoagulation Clinic Pager: [phone] documented in this encounterAdena Regional Medical Center02-03-2023 Miscellaneous Notes* Telephone Encounter - Kamran Ayon RPh - 11/18/2022 12:49 PM EST Patient due to test INR today. Will continue to monitor for results. Kamran Ayon RPh documented in this encounterAdena Regional Medical Center01-20-2023 Miscellaneous Notes* Telephone Encounter - Kamran Ayon RPh - 11/04/2022 8:02 AM EST [facility] Ambulatory [facility]acy Anticoagulation Clinic Anticoagulation Episode Summary Anticoagulation Care Providers Provider Role Specialty Phone number Guanakito Reno MD [facility] Internal Medicine [phone] Cal Mitchell is a 77 year old [...] 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: FPC (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 Paroxysmal atrial fibrillation (hcc) Anticoagulation Episode Summary Current INR goal: 2.0-3.0 Assessment: INR result of 2.2 is therapeutic Plan: Current Warfarin Dosing As of 11/04/2022 Full warfarin instructions: 7.5 mg every Mon, Kaye; 5 mg all other days; Starting 11/04/2022 Sent Synbiota message Advised patient to continue current weekly dose as noted above Next home INR check scheduled on 11/18/2022 Kamran Ayon RPh Clinical Pharmacist, Pharmacy Anticoagulation Clinic Pharmacy Anticoagulation Clinic Pager: [phone]. documented in this encounterAdena Regional Medical Center01-17-2023 Miscellaneous Notes* Telephone Encounter - Twin Cole RPh - 11/01/2022 10:30 AM EST Patient due to test INR today. Will continue to monitor for results. Twin Cole RPh documented in this encounterAdena Regional Medical Center01-10-2023 Miscellaneous Notes* Telephone Encounter - Twin Cole RPh - 10/25/2022 4:30 PM EST [facility] Ambulatory [facility]acy Anticoagulation Clinic Anticoagulation Episode Summary Anticoagulation Care Providers Provider Role Specialty Phone number Guanakito Reno MD [facility] Internal Medicine [phone] Cal Mitchell is a 77 year old [...] Allergies Indication for Warfarin: 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 pharmacist (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 Paroxysmal atrial fibrillation (hcc) Anticoagulation Episode Summary Current INR goal: 2.0-3.0 Assessment: INR result of 3.4 is SUPRAtherapeutic due to: No obvious cause Patient denies any medication changes, grapefruit/cranberry ingestion, OTC/herbal/nutritional supplement use, accidental over dosage, changes in warfarin tablet color/shape/cook specialty, eating less green vegetables, recent illness/fever/nausea/vomiting/diarrhea, increased edema/SOB, or ETOH consump tion. Plan: Current Warfarin Dosing As of 10/19/2022 Full warfarin instructions: 10/25: 5 mg; Otherwise 7.5 mg every Mon, Kaye; 5 mg all other days; Starting 10/19/2022 Called and spoke to patient/caregiver spouse Advised patient to decrease dose for 1 day only then resume weekly regimen Next home INR check scheduled on 11/01/2022 Patient's caregiver verbalizes understanding of the plan. Twin Cole RPh Clinical Pharmacist, Pharmacy Anticoagulation Clinic Pharmacy Anticoagulation Clinic Pager: [phone]. * Telephone Encounter - Ruthie CuevasDEMETRICE - 10/19/2022 4:33 PM EST Patient was due to test INR today will continue to monitor for results. Ruthie Cuevas PharmD documented in this encounterAdena Regional Medical Center12-20-2022 History of Present illness Narrative* Alondra Prescott DO - 10/04/2022 10:58 AM EST This office note has been dictated. Alondra Prescott DO * Alondra Prescott DO - 10/04/2022 12:00 AM EST NAME: CAL MITCHELL [facility] NO: [id number] DATE OF SERVICE: 10/04/2022 Subjective: Mr. Mitchell [...] concerns. Alondra Prescott D.O. KB/089 Audio #: [id number] Date Dictated: 10/04/2022 10:13:59 Date Typed: 10/05/2022 14:12:47 Date Revised: documented in this encounterAdena Regional Medical Center12-15-2022 Miscellaneous Notes* Telephone Encounter - Jimmy Carrizales, [facility] - 09/29/2022 4:38 PM EST [facility] Ambulatory Pharmacy Anticoagulation Clinic Anticoagulation Episode Summary Anticoagulation Care Providers Provider Role Specialty Phone number Guanakito Reno MD [facility] [phone] Cal Mitchell is a 77 year old [...] 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: FPC (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 Paroxysmal atrial fibrillation [...] Patient denies need for refills. Jimmy Carrizales RP Clinical Pharmacist, Pharmacy Anticoagulation Clinic Pharmacy Anticoagulation Clinic Pager: [phone]. * Telephone Encounter - Ruben Cunningham ([employer]) - 09/29/2022 2:23 PM EST PATIENT CALL [...] stated she lets blocked calls go to [email or web address]. She asked if she needed to be near the meterto report the results over the phone to De--advised her I am not sure. January can be reached at [phone] Ruben Cunningham ([employer]) * Telephone Encounter - Ruthie Cuevas RPh [...] PharmD Pharmacy Anticoagulation Clinic documented in this encounterAdena Regional Medical Center12-09-2022 Miscellaneous Notes* Telephone Encounter - Yasemin Cook [...] and advise. Yasemin Cook documented in this encounterAdena Regional Medical Center12-01-2022 Miscellaneous Notes* Telephone Encounter - Yamilka Heath RN - 09/15/2022 2:37 PM EST Spoke with patient's dtr Elly who stated he has a new phone and is having problems with the pedro, so she has been calling in INR results. She called in result on 08/22/22 for 2.1 but it did not register. January also stated when she calls in she's only asked for and not patient's name. Messaged Christine and Quoc at [facility]. Apurva Heath, RN Pharmacy Anticoagulation Clinic * Telephone Encounter - Jimmy Carrizales, [facility] - 09/15/2022 10:24 AM EST [facility] Ambulatory [facility]acy Anticoagulation Clinic Anticoagulation Episode Summary Anticoagulation Care Providers Provider Role Specialty Phone number Guanakito Reno MD [facility] Family Medicine [phone] Cal Mitchell is a 77 year old [...] Allergies Indication for Warfarin: 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 pharmacist (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 Paroxysmal atrial fibrillation (hcc) Anticoagulation Episode Summary Current INR goal: 2.0-3.0 Assessment: INR result of is SUBtherapeutic due to: unknown cause - did not speak to patient Plan: Current Warfarin Dosing As of 08/22/2022 Full warfarin instructions: 09/15: 7.5 mg; Otherwise 7.5 mg every Tue; 5 mg all other days; Ztpzlqsz28/7/2022 Called and spoke to patient/caregiver - per demographics we only have daughter's phone number but no identifier Advised patient to increase dose for 1 day only then resume weekly regimen Next home INR check scheduled on 09/21/2022 Jimmy Carrizales [facility] Clinical Pharmacist, Pharmacy Anticoagulation Clinic Pharmacy Anticoagulation Clinic Pager: [phone]. * Telephone Encounter - Alejandro Molina [facility] - 09/05/2022 5:31 PM EST Added to discharge list. * Telephone Encounter - Ruthie Cuevas RP - 08/29/2022 4:49 PM EST Cal Mitchell was called and reminded to test INR today or as soon as possible. LM on his home/cell number. Ruthie Cuevas PharmD Pharmacy Anticoagulation Clinic * Telephone Encounter - Alejandro Molina [facility] - 08/22/2022 4:42 PM EST Patient was due to test INR today. Will continue to monitor for results. documented in this encounterAdena Regional Medical Center11-23-2022 History of Present illness Narrative* Lizette Cardenas RN - 09/07/2022 6:24 AM EST ACM LUIS RN Action/FYI: Medication Adherence review completed per request of [facility]. NO PROVIDER ACTION REQUIRED Lisinopril/Hctz 20-12.5mg Last filled: 8/6/22 Days Supply: 90 Refill Due: 08/19/22 Pharmacy: [facility] Atorvastatin 80mg Last filled: 03/20/22 Days Supply: 90 Refill Due: 06/28/22 Pharmacy: [facility] MY CHART MESSAGE SENT Patient identified by name and date of . Patient Attributed To: E Payer: [facility] Reason for review or outreach: Medication Adherence Medication Adherence Review Details: Cholesterol and Hypertension Summary / Findings: As per above Action Taken: Data submitted to [employer] message to patient Contact made with patient: No, Chart review only. Signature: Lizette Cardenas RN documented in this encounterAdena Regional Medical Center10-31-2022 History of Present illness Narrative* Pam Reddy MD - 08/15/2022 3:48 PM EDT Images from the original note were not included. Pam Reddy MD Interventional Cardiology [facility] [address] [place], [place] [address] [phone] Chief Complaint Patient presents with: Consult HISTORY [...] 150 Strip 3 Lancets (ONE TOUCH DELICA) [facility] lancets Test blood sugar(s) one time daily. [...] to correct any errors. documented in this encounterAdena Regional Medical Center10-17-2022 Miscellaneous Notes* Telephone Encounter - Alejandro Ulysses [facility] - 08/01/2022 9:52 AM EDT [facility] Ambulatory Pharmacy Anticoagulation Clinic Anticoagulation Episode Summary Anticoagulation Care Providers Provider Role Specialty Phone number Guanakito Reno MD [facility] [phone] Cal Mitchell is a 77 year old [...] instructed to call Pharmaceutical Anticoagulation Clinic at [phone] with any questionsor concerns. Alejandro Molina RPh Clinical Pharmacist, Pharmacy Anticoagulation Clinic Pharmacy Anticoagulation Clinic Pager: [phone] documented in this encounterAdena Regional Medical Center10-07-2022 Miscellaneous Notes* Telephone Encounter - Darrell Meyer [...] advise. Darrell Meyer LPN documented in this encounterAdena Regional Medical Center09-20-2022 Miscellaneous Notes* Telephone Encounter - Twin Cole RPh - 07/05/2022 9:30 AM EDT [facility] Ambulatory Pharmacy Anticoagulation Clinic Anticoagulation Episode Summary Anticoagulation Care Providers Provider Role Specialty Phone number Guanakito Reno MD [facility] [phone] Cal Mitchell is a 77 year old [...] Pharmacy Anticoagulation Clinic Pharmacy Anticoagulation Clinic Pager: [phone]. * Telephone Encounter - Alejandro Molina RPh - 07/04/2022 3:42 PM EDT Cal Mitchell was called and reminded to test INR today or as soon as possible. * Telephone Encounter - Alejandro Molina RPh - 2022 4:11 PM EDT Patient was due to test INR today. Will continue to monitor for results. documented in this encounterAdena Regional Medical Center08-30-2022 Miscellaneous Notes* Telephone Encounter - Twin Cole RPh - 06/14/2022 9:14 AM EDT [facility] Ambulatory Pharmacy Anticoagulation Clinic Anticoagulation Episode Summary Anticoagulation Care Providers Provider Role Specialty Phone number Guanakito Reno MD [facility] [phone] Cal Mitchell is a 76 year old [...] Pharmacy Anticoagulation Clinic Pharmacy Anticoagulation Clinic Pager: [phone]. * Telephone Encounter - Val Oliver RPh - 06/13/2022 9:09 AM EDT [employer]panda / [employer] message sent as a reminder to test INR RAISSA. * Telephone Encounter - Alejandro Molina RPh - 06/06/2022 4:50 PM EDT Patient was due to test INR today. Will continue to monitor for results. documented in this encounterAdena Regional Medical Center08-30-2022 History of Present illness Narrative* Nirmala Lim MA - 06/14/2022 9:03 AM EDT POPULATION HEALTH NAVIGATION OUTREACH Action/FYI Called and left a message to call [phone], to discuss health maintenance items that are due. Sent My Chart message. PCP appt: 01/19- needs follow up per last ov note My chart activation: active Advance directive: needs info HM due: Follow up ARIAN AD Pt identified by name and : NO Outreach Outcome/Action Unable to reach patient: Left message [employer] Sh[employer] Clubhart message sent Did you use a PCP flex slot to schedule this appointment? N/A Reason for Outreach Care Gap or Scheduling/Wellness visits Payer: Payor: [facility] MEDICARE / Plan: [facility] MEDICARE HMO / Product Type: HMO / [...] 14, 2022 9:05 AM documented in this encounterAdena Regional Medical Center08-04-2022 Miscellaneous Notes* Telephone Encounter - Huong Whittaker Ma - 05/19/2022 12:50 PM EDT Patient last visit with PCP 01/19/22 Follow up appointment scheduled none Huong Whittaker Ma * Telephone Encounter - Yasemin Garcia Pss - 05/19/2022 12:01 PM EDT Patient's daughter, Socorro, is calling to renew her dad's scripts through [facility]. His Lisinopril may not make it to him in time, so would like another 14 day script sent locally andthen the traditional 90 day with refill sent to [facility]. * Telephone Encounter - Yasemin Garcia Pss - 05/19/2022 11:56 AM EDT Pharmacy verified in [facility] Patient has been identified by name and [...] advise. Yasemin Garcia Pss documented in this encounterAdena Regional Medical Center08-01-2022 Miscellaneous Notes* Telephone Encounter - Alejandrodayami Molina [facility] - 05/16/2022 11:54 AM EDT [facility] Ambulatory Pharmacy Anticoagulation Clinic Anticoagulation Episode Summary Anticoagulation Care Providers Provider Role Specialty Phone number Guanakito Reno MD [facility] [phone] Cal Mitchell is a 76 year old [...] instructed to call Pharmaceutical Anticoagulation Clinic at [phone] with any questionsor concerns. Alejandro Molina RP Clinical Pharmacist, Pharmacy Anticoagulation Clinic Pharmacy Anticoagulation Clinic Pager: [phone] documented in this encounterAdena Regional Medical Center07-11-2022 Miscellaneous Notes* Telephone Encounter - Val Oliver RP - 04/25/2022 7:56 AM EDT Last INR due around 04/18. [employer] message sent as a reminder to test INR RAISSA. PT INR (no units) Date Value 01/24/2022 2.1 biotel 10/26/2021 2.1 (Biotel) 03/04/2021 2.4 INR Home CoaguChek (no units) Date Value 04/02/2022 2.2 03/09/2022 2.6 02/10/2022 3.4 documented in this encounterAdena Regional Medical Center06-15-2022 Miscellaneous Notes* Telephone Encounter - Ruthie Cuevas RP - 03/30/2022 2:31 PM EDT Cal Mitchell was called and reminded to test INR today or as soon as possible. LM asking him to test. Ruthie Cuevas PharmD * Telephone Encounter - Ruthie Cuevas RPh - 03/23/2022 4:50 PM EDT Patient was due to test INR today will continue to monitor for results. Of note - we LM last time and he didn't read our last MYC msg either. Ruthie Cuevas PharmD documented in this encounterAdena Regional Medical Center06-01-2022 Miscellaneous Notes* Telephone Encounter - Nicki Nieto - 03/16/2022 10:46 AM EDT Patient is scheduled [place] appt on 03/22/22 in [place]. Did call the patient to see if any external imagine has been complete, left VM to call the office Or record indicates no testing has been completed since 2019 Would you like an updated carotid US Order pending please sign if correct Thanks documented in this encounterAdena Regional Medical Center05-25-2022 Miscellaneous Notes* Telephone Encounter - Ruthie Cuevas [facility] - 03/09/2022 4:08 PM EDT [facility] Ambulatory Pharmacy Anticoagulation Clinic Anticoagulation Episode Summary Anticoagulation Care Providers Provider Role Specialty Phone number Guanakito Reno MD [facility] [phone] Cal Mitchell is a 76 year old [...] Allergies Indication for Warfarin: 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 pharmacist (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 Paroxysmal atrial fibrillation (hcc) Anticoagulation Episode Summary Current INR goal: 2.0-3.0 Assessment: INR result of 2.6 is therapeutic He did not read our last [employer] message and hasn't logged on in a month so tried to call. Plan: Called and spoke to patient/caregiver Advised patient to continue current weekly dose Next home INR check scheduled on 03/23/2022 Ruthie Cuveas RPh Clinical Pharmacist, Pharmacy Anticoagulation Clinic Pharmacy Anticoagulation Clinic Pager: [phone] . documented in this encounterAdena Regional Medical Center05-05-2022 Miscellaneous Notes* Telephone Encounter - Jazmyn Garcia RPh - 02/17/2022 1:17 PM EDT Patient due to test INR today. Will continue to monitor for results. Jazmyn Garcia RPh documented in this encounterAdena Regional Medical Center04-29-2022 Miscellaneous Notes* Telephone Encounter - Denisse Hutchinson [facility] - 02/11/2022 8:21 AM EDT [facility] Ambulatory Pharmacy Anticoagulation Clinic Anticoagulation Episode Summary Anticoagulation Care Providers Provider Role Specialty Phone number Guanakito Reno MD [facility] [phone] Cal Mitchell is a 76 year old [...] 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: FPC (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 Paroxysmal atrial fibrillation (hcc) Anticoagulation Episode Summary Current INR goal: 2.0-3.0 Assessment: INR result of is SUPRAtherapeutic due to: unknown cause - did not speak to patient Plan: Sent [employer] message Advised patient to decrease dose for 2 days only then resume weekly regimen Next home INR check scheduled on 02/17/2022 Denisse Hutchinson RPh Clinical Pharmacist, Pharmacy Anticoagulation Clinic Pharmacy Anticoagulation Clinic Pager: [phone] . * Telephone Encounter - Twin Cole RPh - 02/08/2022 4:00 PM EDT Patient due to test INR today. Will continue to monitor for results. Twin Cole RPh documented in this encounterAdena Regional Medical Center04-12-2022 Miscellaneous Notes* Telephone Encounter - Twin Cole RPh - 01/25/2022 9:15 AM EDT [facility] Ambulatory Pharmacy Anticoagulation Clinic Anticoagulation Episode Summary Anticoagulation Care Providers Provider Role Specialty Phone number Guanakito Reno MD [facility] [phone] Cal Mitchell is a 76 year old [...] Pharmacy Anticoagulation Clinic Pharmacy Anticoagulation Clinic Pager: [phone] . documented in this encounterAdena Regional Medical Center04-06-2022 History of Present illness Narrative* [place] [...] No. Dementia: Had previously been following with [facility]. Last visit 08/2020. Doesn't have anything further scheduled. Doesn't really want to go to [place], but appears last visit was distance. Does not drive. Lives w/ daughter. Stays up late at night and sleep during the day. A. Fib: Chronic anticoagulation. Denies any hematochezia/melena. Daughter does home checks. Follows w/ pharmacy. occ fall with no significant injury. Had been following with [place] [facility], but unsure when he was last seen there. Diabetes. Does not check home blood sugars. Reports compliance w/ medication. Carotid artery stenosis. Follows w/ vascular. Last visit 10/20/20. Recommended follow-up with cardiology and then Dr. Devries in [place]. He did have echo done. Unsure if he followed up with [place] [facility]. Per note, they wanted to establish [...] Abs Lymph 1.00 - 4.00 k/uL 1.65 Hood% % 7.4 Abs Hood <0.87 k/uL 0.53 Eosin% % 8.2 Abs [...] Negative Negative Ketones, Urine Negative Negative Specific [place], Ur 1.005 - 1.030 1.016 Hemoglobin/Blood,Ur Negative [...] three months and prn. [facility] M[facility] Notes* Telephone Encounter - Jazmyn Garcia RPh - 01/13/2022 2:33 PM EDT Patient due to test INR today. Will continue to monitor for results. Jazmyn Garcia RPh [facility] Past illness Narrative* Problem Noted [...] of this encounter (statuses as of 08/15/2023) [facility]* Problem Noted [...] of this encounter (statuses as of 08/15/2023) [facility] N[facility]* Problem Noted [...] of this encounter (statuses as of 08/16/2023) [facility] N[facility]* Problem Noted [...] of this encounter (statuses as of 08/23/2023) [facility] N[facility]* Problem Noted [...] of this encounter (statuses as of 09/06/2023) [facility]* Problem Noted [...] of this encounter (statuses as of 09/20/2023) [facility] N[facility]* Problem Noted [...] of this encounter (statuses as of 12/04/2023) [facility] N[facility]* Problem Noted [...] of this encounter (statuses as of 12/21/2023) [facility]* Problem Noted [...] of this encounter (statuses as of 12/21/2023) [facility] N[facility]* Problem Noted [...] of this encounter (statuses as of 12/22/2023) [facility] N[facility]* Problem Noted [...] of this encounter (statuses as of 01/15/2024) [facility] N[facility]* Problem Noted [...] of this encounter (statuses as of 01/18/2024) [facility] N[facility]* Problem Noted [...] of this encounter (statuses as of 01/19/2022) [facility]* Problem Noted [...] of this encounter (statuses as of 01/25/2022) [facility] Problem Noted [...] of this encounter (statuses as of 02/11/2022) [facility] Problem Noted [...] of this encounter (statuses as of 03/09/2022) [facility] Problem Noted [...] of this encounter (statuses as of 03/17/2022) [facility] Problem Noted [...] of this encounter (statuses as of 03/18/2022) [facility] Problem Noted [...] of this encounter (statuses as of 04/04/2022) [facility] Problem Noted [...] of this encounter (statuses as of 04/25/2022) [facility] Problem Noted [...] of this encounter (statuses as of 05/13/2022) [facility] Problem Noted [...] of this encounter (statuses as of 05/16/2022) [facility] Problem Noted [...] of this encounter (statuses as of 05/19/2022) [facility] Problem Noted [...] of this encounter (statuses as of 06/14/2022) [facility] Problem Noted [...] of this encounter (statuses as of 07/05/2022) [facility] Problem Noted [...] of this encounter (statuses as of 07/22/2022) [facility] Problem Noted [...] of this encounter (statuses as of 08/01/2022) [facility] Problem Noted [...] of this encounter (statuses as of 08/15/2022) [facility] Problem Noted [...] of this encounter (statuses as of 09/07/2022) [facility] Problem Noted [...] of this encounter (statuses as of 09/15/2022) [facility] Problem Noted [...] of this encounter (statuses as of 09/23/2022) [facility] Problem Noted [...] of this encounter (statuses as of 09/29/2022) [facility] Problem Noted [...] of this encounter (statuses as of 10/16/2022) [facility] Problem Noted [...] of this encounter (statuses as of 10/25/2022) [facility] Problem Noted [...] of this encounter (statuses as of 11/04/2022) [facility] Problem Noted [...] of this encounter (statuses as of 11/08/2022) [facility] Problem Noted [...] of this encounter (statuses as of 11/18/2022) [facility] Problem Noted [...] of this encounter (statuses as of 11/28/2022) [facility] Problem Noted [...] of this encounter (statuses as of 12/19/2022) [facility] Problem Noted [...] of this encounter (statuses as of 01/12/2023) [facility] Problem Noted [...] of this encounter (statuses as of 01/16/2023) [facility] Problem Noted [...] of this encounter (statuses as of 02/07/2023) [facility] Problem Noted [...] of this encounter (statuses as of 02/14/2023) [facility] Problem Noted [...] of this encounter (statuses as of 03/29/2023) [facility] Problem Noted [...] of this encounter (statuses as of 04/20/2023) [facility] Problem Noted [...] of this encounter (statuses as of 04/24/2023) [facility] Problem Noted [...] of this encounter (statuses as of 05/22/2023) [facility] Problem Noted [...] of this encounter (statuses as of 06/28/2023) [facility] Problem Noted [...] of this encounter (statuses as of 07/05/2023) [facility]* Problem Noted Date Diagnosed Date Resolved Date Cutaneous skin tags 03/29/2011 05/24/20 SK (seborrheic keratosis) 01/26/2011 AK (actinic keratosis) 01/26/201101/28 Skin tags 01/26/2011 03/29/2011 Pain in joint, shoulder region 12/07/2009 01/29/2020 Pain in limb 02/15/2008 04/22/2009 OTHER ABNORMAL GLUCOSE 10/12/200510/02 Dysmetabolic syndrome X 06/24/200511/16 Other symptoms involving car diovascular system 07/20/2016 Actinic keratosis 10/12/2005 Impacted cerumen 10/12/2005 COPD (chronic obstructive pulmonary disease) 01/29/2020 documented as of this encounter (statuses as of 07/27/2023) [facility] Essential hypertension- Primary Unspecified essential [...] 3b CKD (HCC) [facility] Diagnosis 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 pharmacist (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- Primary Long-term (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 Paroxysmal atrial fibrillation (HCC) [facility] FPC (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- Primary Long-term (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 Paroxysmal atrial fibrillation (HCC) Atrial [facility] Diagnosis FPC (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- Primary Long-term (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 Paroxysmal atrial fibrillation (HCC) Atrial [facility] Diagnosis FPC (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- Primary Long-term (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 Paroxysmal atrial fibrillation (HCC) [facility] Diagnosis Bilateral carotid artery stenosis- Primary Occlusion and stenosis of carotid artery without mention of cerebral infarction Stenosis of left carotid artery Occlusion and stenosis of carotid artery without mention of cerebral infarction [facility] Diagnosis FPC (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- Primary Long-term (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 Paroxysmal atrial fibrillation (HCC) [facility] Diagnosis Benign prostatic hyperplasia without lower urinary tract symptoms Mixed dementia (HCC) Essential hypertension with goal blood pressure less than 140/90 Lung nodule Solitary pulmonary nodule Paroxysmal atrial fibrillation (HCC) [facility] Paroxysmal atrial fibrillation (HCC) [facility] Diagnosis Obesity, Class II, BMI 35-39.9- Primary Obesity, unspecified Paroxysmal atrial fibrillation (HCC) Atrial fibrillation Nonrheumatic aortic valve stenosis Aortic valve disorders Aortic valve disorder Aortic valve disorders [facility] Diagnosis FPC (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- Primary Long-term (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 Paroxysmal atrial fibrillation (HCC) Atrial [facility] Diagnosis Essential hypertension with goal blood pressure less than 140/90 [facility]* Diagnosis FPC (current) use of 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- Primary Long-term (current) use of anticoagulants Paroxysmal atrial fibrillation (HCC) Atrial [facility]* Diagnosis Bilateral carotid artery stenosis- Primary Occlusion and stenosis of carotid artery without mention of cerebral infarction [facility]* Diagnosis FPC (current) use of anticoagulants- Primary Long-term (current) use of anticoagulants Paroxysmal atrial fibrillation (HCC) Atrial fibrillation [facility] Diagnosis Essential hypertension with goal blood pressure less than 140/90 [facility] Diagnosis Essential hypertension with goal blood [...] for COVID-19 vaccine [facility] Diagnosis Syncope, unspecified syncope type- Primary Aortic valve disorder Aortic valve disorders [facility] Diagnosis Paroxysmal atrial fibrillation (HCC) Atrial fibrillation Essential hypertension with goal blood pressure less than 140/90 Benign prostatic hyperplasia without lower urinary tract symptoms Mixed dementia (HCC) Lung nodule Solitary pulmonary nodule Type 2 diabetes mellitus with stage 3 chronic kidney disease, without long-term current use of insulin (HCC) [facility] Diagnosis Essential hypertension with goal blood pressure less than 140/90 [facility]* Diagnosis 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 pharmacist (current) use of anticoagulants- Primary Long-term (current) use of anticoagulants Paroxysmal atrial fibrillation (HCC) Atrial fibrillation [facility] Diagnosis Onychomycosis- Primary Dermatophytosis of nail [...] kidney disease (HCC) [facility] Diagnosis Renal insufficiency- Primary Unspecified disorder of kidney and ureter [facility] Diagnosis FPC (current) use of anticoagulants- Primary Long-term (current) use of anticoagulants Paroxysmal atrial fibrillation (HCC) Atrial fibrillation [facility] Diagnosis FPC (current) use of anticoagulants- Primary Long-term (current) use of anticoagulants Paroxysmal atrial fibrillation (HCC) Atrial fibrillation [facility] Diagnosis Abrasion of arm, left, initial encounter- Primary Chronic insomnia Insomnia, unspecified [facility] Diagnosis Essential hypertension with goal blood pressure less than 140/90 Paroxysmal atrial fibrillation (HCC) Atrial fibrillation [facility] Diagnosis Lung nodule Solitary pulmonary nodule [facility] Diagnosis 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 pharmacist (current) use of anticoagulants- Primary Long-term (current) use of anticoagulants Paroxysmal atrial fibrillation (HCC) Atrial fibrillation [facility] Diagnosis Syncope, unspecified syncope type- Primary Aortic valve disorder Aortic valve disorders Paroxysmal atrial fibrillation (HCC) Atrial fibrillation Ectatic thoracic aorta (HCC) 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, without long-term current use of insulin (HCC) [facility] Diagnosis Essential hypertension- Primary Unspecified essential [...] or 3b CKD (HCC) Mixed dementia (HCC) 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 pharmacist (current) use of anticoagulants Long-term (current) use of anticoagulants Obesity, Class II, BMI 35-39.9 Obesity, unspecified Renal insufficiency Unspecified disorder of kidney and ureter Anemia, unspecified type [facility]* Diagnosis 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 pharmacist (current) use of anticoagulants- Primary Long-term (current) use of anticoagulants Paroxysmal atrial fibrillation (HCC) Atrial fibrillation [facility]* Diagnosis CKD (chronic kidney disease) stage 4, 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/min (HCC)- Primary Chronic kidney disease, Stage IV (severe) Anemia, unspecified type [facility] Diagnosis Essential hypertension- Primary Unspecified essential [...] Stage IV (severe) [facility] Diagnosis FPC (current) use of anticoagulants- Primary Long-term (current) use of anticoagulants Paroxysmal atrial fibrillation (HCC) Atrial fibrillation [facility]* Diagnosis Renal insufficiency Unspecified disorder of kidney and ureter [facility] Diagnosis Essential hypertension- Primary Unspecified essential hypertension Hypertensive kidney disease with stage 3 chronic kidney disease, unspecified whether stage 3a or 3b CKD (HCC) Anemia, unspecified type [facility]* Diagnosis 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 pharmacist (current) use of anticoagulants- Primary Long-term (current) use of anticoagulants Paroxysmal atrial fibrillation (HCC) Atrial fibrillation [facility] Diagnosis Blood pressure check- Primary Screening for hypertension Leg swelling Swelling of limb [facility]* Diagnosis Aortic valve stenosis, etiology of cardiac valve disease unspecified- Primary Hypertensive kidney disease with stage 3b chronic kidney disease (HCC) Paroxysmal atrial fibrillation (HCC) Atrial fibrillation Benign prostatic hyperplasia without lower urinary tract symptoms Anemia, unspecified type [facility] Diagnosis FPC (current) use of anticoagulants- Primary Long-term (current) use of anticoagulants Paroxysmal atrial fibrillation (HCC) Atrial fibrillation [facility]* Diagnosis Screen for colon cancer- Primary Special screening for malignant neoplasms, colon [facility] Diagnosis FPC (current) use of anticoagulants- Primary Long-term (current) use of anticoagulants Paroxysmal atrial fibrillation (HCC) Atrial fibrillation [facility] Diagnosis Severe aortic stenosis [I35.0]- Primary Aortic valve disorders Valvular heart disease Endocarditis, valve unspecified, unspecified cause [facility] Diagnosis Nonrheumatic aortic valve stenosis- Primary [...] unspecified, unspecified cause [facility] Diagnosis Nonrheumatic aortic valve stenosis Aortic valve disorders Valvular heart disease Endocarditis, valve unspecified, unspecified cause [facility] Diagnosis Essential hypertension- Primary Unspecified essential [...] (severe) Mixed dementia (HCC) 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 pharmacist (current) use of anticoagulants Long-term (current) use of anticoagulants Need for vaccination Need for prophylactic vaccination and inoculation against unspecified single disease Valvular heart disease Endocarditis, valve unspecified, unspecified cause [facility] Diagnosis Essential hypertension- Primary Unspecified essential hypertension Valvular heart disease Endocarditis, valve unspecified, unspecified cause [facility]* Diagnosis Paroxysmal atrial fibrillation (HCC)- Primary Atrial fibrillation Aortic valve stenosis, etiology of cardiac valve disease unspecified Valvular heart disease Endocarditis, valve unspecified, unspecified cause [facility] Diagnosis Nonrheumatic aortic valve stenosis- Primary Aortic valve disorders Paroxysmal atrial fibrillation (HCC) Atrial fibrillation Valvular heart disease Endocarditis, valve unspecified, unspecified cause [facility]* Diagnosis Nonrheumatic aortic valve stenosis Aortic valve disorders Encounter for preprocedural cardiovascular examination Pre-operative cardiovascular examination documented in this encounter [facility]* Diagnosis FPC (current) use of anticoagulants- Primary Long-term (current) use of anticoagulants Paroxysmal atrial fibrillation (HCC) Atrial fibrillation documented in this encounter [facility] note* Diagnosis Bilateral carotid artery stenosis- Primary Occlusion and stenosis of carotid artery without mention of cerebral infarction History of carotid endarterectomy Other postprocedural status documented in this encounter [facility] note* Diagnosis 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 pharmacist (current) use of anticoagulants- Primary Long-term (current) use of anticoagulants Paroxysmal atrial fibrillation (HCC) Atrial fibrillation documented in this encounter [facility] note* Diagnosis Hyperlipidemia, mixed- Primary Mixed hyperlipidemia [...] disease, Stage IV (severe) 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 pharmacist (current) use of anticoagulants Long-term (current) use of anticoagulants Obesity, Class II, BMI 35-39.9 Obesity, unspecified Viral conjunctivitis Unspecified diseases of conjunctiva due to viruses Seasonal allergic rhinitis, unspecified trigger Bilateral impacted cerumen Impacted cerumen documented in this encounter [facility] note* Diagnosis 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 pharmacist (current) use of anticoagulants- Primary Long-term (current) use of anticoagulants Paroxysmal atrial fibrillation (HCC) Atrial fibrillation documented in this encounter [facility] note* Diagnosis Paroxysmal atrial fibrillation (HCC) Atrial fibrillation documented in this encounter [facility] (narrative)* Outpatient Procedure (Routine) - Pending Review Specialty Diagnoses / Procedures Referred By Anival aden [facility] Diagnoses Bilateral carotid artery stenosis Procedures US CAROTID ARTERIES GRAY VAS LAB DUPLEX SCAN EXTRACRANIAL ART COMPL BI STUDY Alondra Prescott, DO [address] [place] [address] [facility] [place] [address] [place] [address] Referral ID Status Reason Start Date Expiration Date Visits Requested Visits Authorized [id number] Pending Review Auto-Generat ed Referral 03/18/2022 03/16/2023 1 1 [facility] for referral (narrative)* Outpatient Procedure (Routine) - Authorized Specialty Diagnoses / Procedures Referred By Contac t Referred To Contact [facility] Diagnoses Nonrheumatic aortic valve stenosis Procedures ECHO ECHO TTHRC R-T 2D W/WOM-MODE COMPL SPEC&COLR D Pam Reddy MD [address] [place] [address] [address] Referral ID Status Reason Start Date Expiration Date Visits Requested Visits Authorized [id number] Authorized Auto-Generat ed Referral 08/22/2022 08/15/2023 1 1 [facility] for referral (narrative)* Outpatient Procedure (Routine) - Pending Review Specialty Diagnoses / Procedures Referred By Contac t Referred To Contact [facility] Diagnoses Bilateral carotid artery stenosis Procedures US CAROTID ARTERIES GRAY VAS LAB DUPLEX SCAN EXTRACRANIAL ART COMPL BI STUDY Alondra Prescott DO [address] [place] [address] [address] Referral ID Status Reason Start Date Expiration Date Visits Requested Visits Authorized [id number] Pending Review Auto-Generat ed Referral 10/04/2023 1 1 [facility] for referral (narrative)* Outpatient Procedure (Routine) - Authorized Specialty Diagnoses / Procedures Referred By Contac t Referred To Contact [facility] Diagnoses Syncope, unspecified syncope type Aortic valve disorder Procedures ECHO ECHO TTHRC R-T 2D W/WOM-MODE COMPL SPEC&COLR D Sleik, Khaled Meloud, MD [address] [place] [address] [facility] [place] [address] [place] [address] Referral ID Status Reason Start Date Expiration Date Visits Requested Visits Authorized [id number] Authorized Auto-Generat ed Referral 02/20/2023 02/13/2024 1 1 [facility] for referral (narrative)* Outpatient Procedure (Routine) - Pending Review Specialty Diagnoses / Procedures Referred By Contac t Referred To Contact [facility] Diagnoses Syncope, unspecified syncope type Aortic valve disorder Procedures ECHO ECHO TTHRC R-T 2D W/WOM-MODE COMPL SPEC&COLPam Buchanan MD [address], [address] [place] [address] [facility] [place] [address] [place] [address] Referral ID Status Reason Start Date Expiration Date Visits Requested Visits Authorized [id number] Pending Review Auto-Generat ed Referral 04/08/2024 03/25/2025 1 1 * Outpatient Procedure (Routine) - Pending Review Specialty Diagnoses / Procedures Referred By Contac t Referred To Contact [facility] Diagnoses Syncope, unspecified syncope type Aortic valve disorder Paroxysmal atrial fibrillation (HCC) Procedures ECG COMPLETE ECG ROUTINE ECG W/LEAST 12 LDS W/I&R Pam Reddy MD [address], [address] [place] [address] [facility] [place] [address] [place] [address] Referral ID Status Reason Start Date Expiration Date Visits Requested Visits Authorized [id number] Pending Review Auto-Generat ed Referral 03/21/2024 03/21/2025 1 1 [facility] for referral (narrative)* Diagnostic Procedure Only (Routine) - Authorized Specialty Diagnoses / Procedures Referred By Contac t Referred To Contact [facility] IMAGING Diagnoses Renal insufficiency Procedures US KIDNEY/BLADDER US RETROPERITONEAL REAL TIME W/IMAGE COMPLETE Guanakito Reno MD [address] [place] [address] [facility] Referral ID Status Reason Start Date Expiration Date Visits Requested Visits Authorized [id number] Authorized Auto-Generat ed Referral 03/26/2024 04/25/2025 1 1 * Outpatient Procedure (Routine) - Pending Review Specialty Diagnoses / Procedures Referred By Contac t Referred To [facility] Diagnoses History of carotid endarterectomy Procedures US CAROTID ARTERIES GRAY VAS LAB DUPLEX SCAN EXTRACRANIAL ART COMPL BI STUDY Guanakito Reno MD [address] [place], [place] [id number] [facility] [place] [address] [place] [address] Referral ID Status Reason Start Date Expiration Date Visits Requested Visits Authorized [id number] Pending Review Auto-Generat ed Referral 03/26/2024 03/26/2025 1 1 [facility] for referral (narrative)* Diagnostic Procedure Only (Routine) - Closed Specialty Diagnoses / Procedures Referred By Contac t Referred To Contact [facility] IM[facility] Diagnoses Renal insufficiency Procedures US KIDNEY/BLADDER US RETROPERITONEAL REAL TIME W/IMAGE Guanakito Crews MD [address] [place], [place] [id number] [facility] Referral ID Status Reason Start Date Expiration Date V isits Requested Visits Authorized [id number] Closed Auto-Generate d Referral 03/26/2024 04/25/2025 1 1 [facility] for referral (narrative)* Diagnostic Procedure Only (Routine) - New Request Specialty Diagnoses / Procedures Referred By Contac t Referred To Contact [facility] IM[facility] Diagnoses Bilateral carotid artery stenosis History of carotid endarterectomy Procedures US CAROTID BILATERAL Laura Iraheta MD [address] [place] [address] [place] [address] Referral ID Status Reason Start Date Expiration Date Visits Requested Visits Authorized [id number] New Request Auto-Generat ed Referral 5 09/05/2025 1 1 [facility] Summary Purpose Family History No Family History [...] Diagnoses Mixed dementia ([place] [address] [place] [address] Referral ID Status Reason Start Date Expiration Date Visits Re quested Visits Authorized [id number] Closed 1 1 Referral ID Status Reason Start Date Expiration Date Visits Re quested Visits Authorized [id number] Closed 1 1 Specialty Diagnoses / Procedures Referred By Juveac t Referred To Contact Podiatry Diagnoses Onychomycosis Procedures CONSULT TO PODIATRY OFFICE/OUTPATIENT [facility] 60-74 MINUTES Guanakito Reno MD [address] [place] [address] Referral ID Status Reason Start Date Expiration Date Visits Requested Visits Authorized [id number] Pending Review PCP Requested Referral 3 08/13/2024 1 1 Specialty Diagnoses / Procedures Referred By Anival t Referred To Contact Nephrology Diagnoses CKD (chronic kidney disease) stage 4, 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/min ([facility]) Anemia, unspecified type Procedures CONSULT TO NEPHROLOGY OFFICE/OUTPATIENT [facility] [place] [address] [place] [address] Referral ID Status Reason Start Date Expiration Date Visits Requested Visits Authorized [id number] Authorized PCP Requested Referral 04/05/2024 04/05/2025 1 1 Specialty Diagnoses / Procedures Referred By Contac t Referred To Contact Vascular Surgery Diagnoses Stenosis of left carotid artery Procedures CONSULT TO VASCULAR SURGERY OFFICE/OUTPATIENT [facility] 60 MINUTES Josselyn Mayer APRN.[employer] [address] [place] [address] Laura Iraheta MD [address] [place] [address] Referral ID Status Reason Start Date Expiration Date Visits Requested Visits Authorized [id number] Authorized PCP Requested Referral 07/10/2024 07/10/2025 1 1 Specialty Diagnoses / Procedures Referred By Contac t Referred To Contact Nephrology Diagnoses Chronic kidney disease, unspecified CKD stage Anemia in chronic kidney disease, unspecified CKD stage Procedures CONSULT TO NEPHROLOGY Josselyn Mayer APRN.[employer] [address] [place] [address] Eladio Remy MD [address] [address] Referral ID Status Reason Start Date Expiration Date Visits Requested Visits Authorized [id number] Ref Not Required PCP Requested Referral 07/10/2024 07/10/2025 1 1 Specialty Diagnoses / Procedures Referred By Contac t Referred To Contact Gerontology Diagnoses Dementia, unspecified dementia severity, unspecified dementia type, unspecified whether behavioral, psychotic, or mood disturbance or anxiety (HCC) Procedures CONSULT TO GERIATRICS OFFICE/OUTPATIENT [facility] 60 MINUTES Josselyn Mayer, ÁLVARO.[employer] [address] [place] [address] Referral ID Status Reason Start Date Expiration Date Visits Requested Visits Authorized [id number] Authorized PCP Requested Referral 07/10/2024 07/10/2025 1 1 Specialty Diagnoses / Procedures Referred By Contac t Referred To Contact CT IMAGING Diagnoses Nonrheumatic aortic valve stenosis Encounter for preprocedural cardiovascular examination Procedures CTA CHEST (GATED) WO/W IVCON CT ANGIOGRAPHY CHEST W/CONTRAST/NONCONTRAST Ineman, Josselyn L, COURT OPERATIONS CLERK.[employer] [address] [place] [address] [place] [address] Referral ID Status Reason Start Date Expiration Date Visits Requested Visits Authorized [id number] Authorized Auto-Generat ed Referral 07/10/2024 08/09/2025 1 1 Specialty Diagnoses / Procedures Referred By Contac t Referred To Contact CT IMAGING Diagnoses Nonrheumatic aortic valve stenosis Encounter for preprocedural cardiovascular examination Procedures CTA ABD/PEL W IVCON CT ANGIO ABD&PLVIS CNTRST MTRL W/WO CNTRST Josselyn Munguia, COURT OPERATIONS CLERK.[employer] [address] [place] [address] [place] [address] Referral ID Status Reason Start Date Expiration Date Visits Requested Visits Authorized [id number] Authorized Auto-Generat ed Referral 07/10/2024 08/09/2025 1 1 Referral ID Status Reason Start Date Expiration Date V isits Requested Visits Authorized [id number] Closed Auto-Generate d Referral 07/10/2024 08/09/2025 1 1 Referral ID Status Reason Start Date Expiration Date V isits Requested Visits Authorized [id number] Closed Auto-Generate d Referral 07/10/2024 08/09/2025 1 [...] and content) DATE CREATED AUTHOR 04/06/2018 [facility] DATE CREATED AUTHOR AUTHOR'S ORGANIZ ATION 03/12/2025 [facility] DATE CREATED AUTHOR AUTHOR'S ORGANIZ ATION 05/07/2025 [facility] DATE CREATED AUTHOR AUTHOR'S ORGANIZ ATION 05/14/2025 [facility] Source Comments (unrecognize d section and content) In the event this informatio n is protected by the Federal Confidentiality of Alcohol and Drug Abuse Patient Records regulations: The Federal rules restrict any use of the information to criminally investigate or prosecute any alcohol or drug abuse patient.[facility] the event this information is protected by the Federal Confidentiality of Alcohol and Drug Abuse Patient Records regulations: The Federal rules restrict any use of the information to criminally investigate or prosecute any alcohol or drug abuse patient.[facility] CenterIn the event this information is protected by the Federal Confidentiality of Alcohol and Drug Abuse Patient Records regulations: The Federal rules restrict any use of the information to criminally investigate or prosecute any alcohol or drug abuse patient.[facility] CenterIn the event this information is protected by the Federal Confidentiality of Alcohol and Drug Abuse Patient Records regulations: The Federal rules restrict any use of the information to criminally investigate or prosecute any alcohol or drug abuse patient.[facility] CenterIn the event this information is protected by the Federal Confidentiality of Alcohol and Drug Abuse Patient Records regulations: The Federal rules restrict any use of the information to criminally investigate or prosecute any alcohol or drug abuse patient.[facility] CenterIn the event this information is protected by the Federal Confidentiality of Alcohol and Drug Abuse Patient Records regulations: The Federal rules restrict any use of the information to criminally investigate or prosecute any alcohol or drug abuse patient.[facility] CenterIn the event this information is protected by the Federal Confidentiality of Alcohol and Drug Abuse Patient Records regulations: The Federal rules restrict any use of the information to criminally investigate or prosecute any alcohol or drug abuse patient.[facility] CenterIn the event this information is protected by the Federal Confidentiality of Alcohol and Drug Abuse Patient Records regulations: The Federal rules restrict any use of the information to criminally investigate or prosecute any alcohol or drug abuse patient.[facility] CenterIn the event this information is protected by the Federal Confidentiality of Alcohol and Drug Abuse Patient Records regulations: The Federal rules restrict any use of the information to criminally investigate or prosecute any alcohol or drug abuse patient.[facility] CenterIn the event this information is protected by the Federal Confidentiality of Alcohol and Drug Abuse Patient Records regulations: The Federal rules restrict any use of the information to criminally investigate or prosecute any alcohol or drug abuse patient.[facility] CenterIn the event this information is protected by the Federal Confidentiality of Alcohol and Drug Abuse Patient Records regulations: The Federal rules restrict any use of the information to criminally investigate or prosecute any alcohol or drug abuse patient.[facility] CenterIn the event this information is protected by the Federal Confidentiality of Alcohol and Drug Abuse Patient Records regulations: The Federal rules restrict any use of the information to criminally investigate or prosecute any alcohol or drug abuse patient.[facility] CenterIn the event this information is protected by the Federal Confidentiality of Alcohol and Drug Abuse Patient Records regulations: The Federal rules restrict any use of the information to criminally investigate or prosecute any alcohol or drug abuse patient.[facility] CenterIn the event this information is protected by the Federal Confidentiality of Alcohol and Drug Abuse Patient Records regulations: The Federal rules restrict any use of the information to criminally investigate or prosecute any alcohol or drug abuse patient.[facility] CenterIn the event this information is protected by the Federal Confidentiality of Alcohol and Drug Abuse Patient Records regulations: The Federal rules restrict any use of the information to criminally investigate or prosecute any alcohol or drug abuse patient.[facility] CenterIn the event this information is protected by the Federal Confidentiality of Alcohol and Drug Abuse Patient Records regulations: The Federal rules restrict any use of the information to criminally investigate or prosecute any alcohol or drug abuse patient.[facility] CenterIn the event this information is protected by the Federal Confidentiality of Alcohol and Drug Abuse Patient Records regulations: The Federal rules restrict any use of the information to criminally investigate or prosecute any alcohol or drug abuse patient.[facility] CenterIn the event this information is protected by the Federal Confidentiality of Alcohol and Drug Abuse Patient Records regulations: The Federal rules restrict any use of the information to criminally investigate or prosecute any alcohol or drug abuse patient.[facility] CenterIn the event this information is protected by the Federal Confidentiality of Alcohol and Drug Abuse Patient Records regulations: The Federal rules restrict any use of the information to criminally investigate or prosecute any alcohol or drug abuse patient.[facility] CenterIn the event this information is protected by the Federal Confidentiality of Alcohol and Drug Abuse Patient Records regulations: The Federal rules restrict any use of the information to criminally investigate or prosecute any alcohol or drug abuse patient.[facility] CenterIn the event this information is protected by the Federal Confidentiality of Alcohol and Drug Abuse Patient Records regulations: The Federal rules restrict any use of the information to criminally investigate or prosecute any alcohol or drug abuse patient.[facility] CenterIn the event this information is protected by the Federal Confidentiality of Alcohol and Drug Abuse Patient Records regulations: The Federal rules restrict any use of the information to criminally investigate or prosecute any alcohol or drug abuse patient.[facility] CenterIn the event this information is protected by the Federal Confidentiality of Alcohol and Drug Abuse Patient Records regulations: The Federal rules restrict any use of the information to criminally investigate or prosecute any alcohol or drug abuse patient.[facility] CenterIn the event this information is protected by the Federal Confidentiality of Alcohol and Drug Abuse Patient Records regulations: The Federal rules restrict any use of the information to criminally investigate or prosecute any alcohol or drug abuse patient.[facility] CenterIn the event this information is protected by the Federal Confidentiality of Alcohol and Drug Abuse Patient Records regulations: The Federal rules restrict any use of the information to criminally investigate or prosecute any alcohol or drug abuse patient.[facility] CenterIn the event this information is protected by the Federal Confidentiality of Alcohol and Drug Abuse Patient Records regulations: The Federal rules restrict any use of the information to criminally investigate or prosecute any alcohol or drug abuse patient.[facility] CenterIn the event this information is protected by the Federal Confidentiality of Alcohol and Drug Abuse Patient Records regulations: The Federal rules restrict any use of the information to criminally investigate or prosecute any alcohol or drug abuse patient.[facility] CenterIn the event this information is protected by the Federal Confidentiality of Alcohol and Drug Abuse Patient Records regulations: The Federal rules restrict any use of the information to criminally investigate or prosecute any alcohol or drug abuse patient.[facility] CenterIn the event this information is protected by the Federal Confidentiality of Alcohol and Drug Abuse Patient Records regulations: The Federal rules restrict any use of the information to criminally investigate or prosecute any alcohol or drug abuse patient.[facility] CenterIn the event this information is protected by the Federal Confidentiality of Alcohol and Drug Abuse Patient Records regulations: The Federal rules restrict any use of the information to criminally investigate or prosecute any alcohol or drug abuse patient.[facility] CenterIn the event this information is protected by the Federal Confidentiality of Alcohol and Drug Abuse Patient Records regulations: The Federal rules restrict any use of the information to criminally investigate or prosecute any alcohol or drug abuse patient.[facility] CenterIn the event this information is protected by the Federal Confidentiality of Alcohol and Drug Abuse Patient Records regulations: The Federal rules restrict any use of the information to criminally investigate or prosecute any alcohol or drug abuse patient.[facility] CenterIn the event this information is protected by the Federal Confidentiality of Alcohol and Drug Abuse Patient Records regulations: The Federal rules restrict any use of the information to criminally investigate or prosecute any alcohol or drug abuse patient.[facility] CenterIn the event this information is protected by the Federal Confidentiality of Alcohol and Drug Abuse Patient Records regulations: The Federal rules restrict any use of the information to criminally investigate or prosecute any alcohol or drug abuse patient.[facility] CenterIn the event this information is protected by the Federal Confidentiality of Alcohol and Drug Abuse Patient Records regulations: The Federal rules restrict any use of the information to criminally investigate or prosecute any alcohol or drug abuse patient.[facility] CenterIn the event this information is protected by the Federal Confidentiality of Alcohol and Drug Abuse Patient Records regulations: The Federal rules restrict any use of the information to criminally investigate or prosecute any alcohol or drug abuse patient.[facility] CenterIn the event this information is protected by the Federal Confidentiality of Alcohol and Drug Abuse Patient Records regulations: The Federal rules restrict any use of the information to criminally investigate or prosecute any alcohol or drug abuse patient.[facility] CenterIn the event this information is protected by the Federal Confidentiality of Alcohol and Drug Abuse Patient Records regulations: The Federal rules restrict any use of the information to criminally investigate or prosecute any alcohol or drug abuse patient.[facility] CenterIn the event this information is protected by the Federal Confidentiality of Alcohol and Drug Abuse Patient Records regulations: The Federal rules restrict any use of the information to criminally investigate or prosecute any alcohol or drug abuse patient.[facility] CenterIn the event this information is protected by the Federal Confidentiality of Alcohol and Drug Abuse Patient Records regulations: The Federal rules restrict any use of the information to criminally investigate or prosecute any alcohol or drug abuse patient.[facility] CenterIn the event this information is protected by the Federal Confidentiality of Alcohol and Drug Abuse Patient Records regulations: The Federal rules restrict any use of the information to criminally investigate or prosecute any alcohol or drug abuse patient.[facility] CenterIn the event this information is protected by the Federal Confidentiality of Alcohol and Drug Abuse Patient Records regulations: The Federal rules restrict any use of the information to criminally investigate or prosecute any alcohol or drug abuse patient.[facility] CenterIn the event this information is protected by the Federal Confidentiality of Alcohol and Drug Abuse Patient Records regulations: The Federal rules restrict any use of the information to criminally investigate or prosecute any alcohol or drug abuse patient.[facility] CenterIn the event this information is protected by the Federal Confidentiality of Alcohol and Drug Abuse Patient Records regulations: The Federal rules restrict any use of the information to criminally investigate or prosecute any alcohol or drug abuse patient.[facility] CenterIn the event this information is protected by the Federal Confidentiality of Alcohol and Drug Abuse Patient Records regulations: The Federal rules restrict any use of the information to criminally investigate or prosecute any alcohol or drug abuse patient.[facility] CenterIn the event this information is protected by the Federal Confidentiality of Alcohol and Drug Abuse Patient Records regulations: The Federal rules restrict any use of the information to criminally investigate or prosecute any alcohol or drug abuse patient.[facility] CenterIn the event this information is protected by the Federal Confidentiality of Alcohol and Drug Abuse Patient Records regulations: The Federal rules restrict any use of the information to criminally investigate or prosecute any alcohol or drug abuse patient.[facility] CenterIn the event this information is protected by the Federal Confidentiality of Alcohol and Drug Abuse Patient Records regulations: The Federal rules restrict any use of the information to criminally investigate or prosecute any alcohol or drug abuse patient.[facility] CenterIn the event this information is protected by the Federal Confidentiality of Alcohol and Drug Abuse Patient Records regulations: The Federal rules restrict any use of the information to criminally investigate or prosecute any alcohol or drug abuse patient.[facility] CenterIn the event this information is protected by the Federal Confidentiality of Alcohol and Drug Abuse Patient Records regulations: The Federal rules restrict any use of the information to criminally investigate or prosecute any alcohol or drug abuse patient.[facility] CenterIn the event this information is protected by the Federal Confidentiality of Alcohol and Drug Abuse Patient Records regulations: The Federal rules restrict any use of the information to criminally investigate or prosecute any alcohol or drug abuse patient.[facility] CenterIn the event this information is protected by the Federal Confidentiality of Alcohol and Drug Abuse Patient Records regulations: The Federal rules restrict any use of the information to criminally investigate or prosecute any alcohol or drug abuse patient.[facility] CenterIn the event this information is protected by the Federal Confidentiality of Alcohol and Drug Abuse Patient Records regulations: The Federal rules restrict any use of the information to criminally investigate or prosecute any alcohol or drug abuse patient.[facility] CenterIn the event this information is protected by the Federal Confidentiality of Alcohol and Drug Abuse Patient Records regulations: The Federal rules restrict any use of the information to criminally investigate or prosecute any alcohol or drug abuse patient.[facility] CenterIn the event this information is protected by the Federal Confidentiality of Alcohol and Drug Abuse Patient Records regulations: The Federal rules restrict any use of the information to criminally investigate or prosecute any alcohol or drug abuse patient.[facility] CenterIn the event this information is protected by the Federal Confidentiality of Alcohol and Drug Abuse Patient Records regulations: The Federal rules restrict any use of the information to criminally investigate or prosecute any alcohol or drug abuse patient.[facility] CenterIn the event this information is protected by the Federal Confidentiality of Alcohol and Drug Abuse Patient Records regulations: The Federal rules restrict any use of the information to criminally investigate or prosecute any alcohol or drug abuse patient.[facility] CenterIn the event this information is protected by the Federal Confidentiality of Alcohol and Drug Abuse Patient Records regulations: The Federal rules restrict any use of the information to criminally investigate or prosecute any alcohol or drug abuse patient.[facility] CenterIn the event this information is protected by the Federal Confidentiality of Alcohol and Drug Abuse Patient Records regulations: The Federal rules restrict any use of the information to criminally investigate or prosecute any alcohol or drug abuse patient.[facility] CenterIn the event this information is protected by the Federal Confidentiality of Alcohol and Drug Abuse Patient Records regulations: The Federal rules restrict any use of the information to criminally investigate or prosecute any alcohol or drug abuse patient.[facility] CenterIn the event this information is protected by the Federal Confidentiality of Alcohol and Drug Abuse Patient Records regulations: The Federal rules restrict any use of the information to criminally investigate or prosecute any alcohol or drug abuse patient.[facility] CenterIn the event this information is protected by the Federal Confidentiality of Alcohol and Drug Abuse Patient Records regulations: The Federal rules restrict any use of the information to criminally investigate or prosecute any alcohol or drug abuse patient.[facility] CenterIn the event this information is protected by the Federal Confidentiality of Alcohol and Drug Abuse Patient Records regulations: The Federal rules restrict any use of the information to criminally investigate or prosecute any alcohol or drug abuse patient.[facility] CenterIn the event this information is protected by the Federal Confidentiality of Alcohol and Drug Abuse Patient Records regulations: The Federal rules restrict any use of the information to criminally investigate or prosecute any alcohol or drug abuse patient.[facility] CenterIn the event this information is protected by the Federal Confidentiality of Alcohol and Drug Abuse Patient Records regulations: The Federal rules restrict any use of the information to criminally investigate or prosecute any alcohol or drug abuse patient.[facility] CenterIn the event this information is protected by the Federal Confidentiality of Alcohol and Drug Abuse Patient Records regulations: The Federal rules restrict any use of the information to criminally investigate or prosecute any alcohol or drug abuse patient.[facility] CenterIn the event this information is protected by the Federal Confidentiality of Alcohol and Drug Abuse Patient Records regulations: The Federal rules restrict any use of the information to criminally investigate or prosecute any alcohol or drug abuse patient.[facility] CenterIn the event this information is protected by the Federal Confidentiality of Alcohol and Drug Abuse Patient Records regulations: The Federal rules restrict any use of the information to criminally investigate or prosecute any alcohol or drug abuse patient.[facility] CenterIn the event this information is protected by the Federal Confidentiality of Alcohol and Drug Abuse Patient Records regulations: The Federal rules restrict any use of the information to criminally investigate or prosecute any alcohol or drug abuse patient.[facility] CenterIn the event this information is protected by the Federal Confidentiality of Alcohol and Drug Abuse Patient Records regulations: The Federal rules restrict any use of the information to criminally investigate or prosecute any alcohol or drug abuse patient.[facility] CenterIn the event this information is protected by the Federal Confidentiality of Alcohol and Drug Abuse Patient Records regulations: The Federal rules restrict any use of the information to criminally investigate or prosecute any alcohol or drug abuse patient.[facility] CenterIn the event this information is protected by the Federal Confidentiality of Alcohol and Drug Abuse Patient Records regulations: The Federal rules restrict any use of the information to criminally investigate or prosecute any alcohol or drug abuse patient.[facility] CenterIn the event this information is protected by the Federal Confidentiality of Alcohol and Drug Abuse Patient Records regulations: The Federal rules restrict any use of the information to criminally investigate or prosecute any alcohol or drug abuse patient.[facility] CenterIn the event this information is protected by the Federal Confidentiality of Alcohol and Drug Abuse Patient Records regulations: The Federal rules restrict any use of the information to criminally investigate or prosecute any alcohol or drug abuse patient.[facility] CenterIn the event this information is protected by the Federal Confidentiality of Alcohol and Drug Abuse Patient Records regulations: The Federal rules restrict any use of the information to criminally investigate or prosecute any alcohol or drug abuse patient.[facility] CenterIn the event this information is protected by the Federal Confidentiality of Alcohol and Drug Abuse Patient Records regulations: The Federal rules restrict any use of the information to criminally investigate or prosecute any alcohol or drug abuse patient.[facility] CenterIn the event this information is protected by the Federal Confidentiality of Alcohol and Drug Abuse Patient Records regulations: The Federal rules restrict any use of the information to criminally investigate or prosecute any alcohol or drug abuse patient.[facility] CenterIn the event this information is protected by the Federal Confidentiality of Alcohol and Drug Abuse Patient Records regulations: The Federal rules restrict any use of the information to criminally investigate or prosecute any alcohol or drug abuse patient.[facility] CenterIn the event this information is protected by the Federal Confidentiality of Alcohol and Drug Abuse Patient Records regulations: The Federal rules restrict any use of the information to criminally investigate or prosecute any alcohol or drug abuse patient.[facility] CenterIn the event this information is protected by the Federal Confidentiality of Alcohol and Drug Abuse Patient Records regulations: The Federal rules restrict any use of the information to criminally investigate or prosecute any alcohol or drug abuse patient.[facility] CenterIn the event this information is protected by the Federal Confidentiality of Alcohol and Drug Abuse Patient Records regulations: The Federal rules restrict any use of the information to criminally investigate or prosecute any alcohol or drug abuse patient.[facility] CenterIn the event this information is protected by the Federal Confidentiality of Alcohol and Drug Abuse Patient Records regulations: The Federal rules restrict any use of the information to criminally investigate or prosecute any alcohol or drug abuse patient.[facility] CenterIn the event this information is protected by the Federal Confidentiality of Alcohol and Drug Abuse Patient Records regulations: The Federal rules restrict any use of the information to criminally investigate or prosecute any alcohol or drug abuse patient.[facility] CenterIn the event this information is protected by the Federal Confidentiality of Alcohol and Drug Abuse Patient Records regulations: The Federal rules restrict any use of the information to criminally investigate or prosecute any alcohol or drug abuse patient.[facility] CenterIn the event this information is protected by the Federal Confidentiality of Alcohol and Drug Abuse Patient Records regulations: The Federal rules restrict any use of the information to criminally investigate or prosecute any alcohol or drug abuse patient.[facility] CenterIn the event this information is protected by the Federal Confidentiality of Alcohol and Drug Abuse Patient Records regulations: The Federal rules restrict any use of the information to criminally investigate or prosecute any alcohol or drug abuse patient.[facility] CenterIn the event this information is protected by the Federal Confidentiality of Alcohol and Drug Abuse Patient Records regulations: The Federal rules restrict any use of the information to criminally investigate or prosecute any alcohol or drug abuse patient.[facility] CenterIn the event this information is protected by the Federal Confidentiality of Alcohol and Drug Abuse Patient Records regulations: The Federal rules restrict any use of the information to criminally investigate or prosecute any alcohol or drug abuse patient.[facility] CenterIn the event this information is protected by the Federal Confidentiality of Alcohol and Drug Abuse Patient Records regulations: The Federal rules restrict any use of the information to criminally investigate or prosecute any alcohol or drug abuse patient.[facility] CenterIn the event this information is protected by the Federal Confidentiality of Alcohol and Drug Abuse Patient Records regulations: The Federal rules restrict any use of the information to criminally investigate or prosecute any alcohol or drug abuse patient.[facility] CenterIn the event this information is protected by the Federal Confidentiality of Alcohol and Drug Abuse Patient Records regulations: The Federal rules restrict any use of the information to criminally investigate or prosecute any alcohol or drug abuse patient.[facility] CenterIn the event this information is protected by the Federal Confidentiality of Alcohol and Drug Abuse Patient Records regulations: The Federal rules restrict any use of the information to criminally investigate or prosecute any alcohol or drug abuse patient.[facility] CenterIn the event this information is protected by the Federal Confidentiality of Alcohol and Drug Abuse Patient Records regulations: The Federal rules restrict any use of the information to criminally investigate or prosecute any alcohol or drug abuse patient.[facility] CenterIn the event this information is protected by the Federal Confidentiality of Alcohol and Drug Abuse Patient Records regulations: The Federal rules restrict any use of the information to criminally investigate or prosecute any alcohol or drug abuse patient.[facility] CenterIn the event this information is protected by the Federal Confidentiality of Alcohol and Drug Abuse Patient Records regulations: The Federal rules restrict any use of the information to criminally investigate or prosecute any alcohol or drug abuse patient.[facility] CenterIn the event this information is protected by the Federal Confidentiality of Alcohol and Drug Abuse Patient Records regulations: The Federal rules restrict any use of the information to criminally investigate or prosecute any alcohol or drug abuse patient.[facility] CenterIn the event this information is protected by the Federal Confidentiality of Alcohol and Drug Abuse Patient Records regulations: The Federal rules restrict any use of the information to criminally investigate or prosecute any alcohol or drug abuse patient.[facility] CenterIn the event this information is protected by the Federal Confidentiality of Alcohol and Drug Abuse Patient Records regulations: The Federal rules restrict any use of the information to criminally investigate or prosecute any alcohol or drug abuse patient.[facility] CenterIn the event this information is protected by the Federal Confidentiality of Alcohol and Drug Abuse Patient Records regulations: The Federal rules restrict any use of the information to criminally investigate or prosecute any alcohol or drug abuse patient.[facility] CenterIn the event this information is protected by the Federal Confidentiality of Alcohol and Drug Abuse Patient Records regulations: The Federal rules restrict any use of the information to criminally investigate or prosecute any alcohol or drug abuse patient.[facility] CenterIn the event this information is protected by the Federal Confidentiality of Alcohol and Drug Abuse Patient Records regulations: The Federal rules restrict any use of the information to criminally investigate or prosecute any alcohol or drug abuse patient.[facility] CenterIn the event this information is protected by the Federal Confidentiality of Alcohol and Drug Abuse Patient Records regulations: The Federal rules restrict any use of the information to criminally investigate or prosecute any alcohol or drug abuse patient.[facility] CenterIn the event this information is protected by the Federal Confidentiality of Alcohol and Drug Abuse Patient Records regulations: The Federal rules restrict any use of the information to criminally investigate or prosecute any alcohol or drug abuse patient.[facility] CenterIn the event this information is protected by the Federal Confidentiality of Alcohol and Drug Abuse Patient Records regulations: The Federal rules restrict any use of the information to criminally investigate or prosecute any alcohol or drug abuse patient.[facility] CenterIn the event this information is protected by the Federal Confidentiality of Alcohol and Drug Abuse Patient Records regulations: The Federal rules restrict any use of the information to criminally investigate or prosecute any alcohol or drug abuse patient.[facility] CenterIn the event this information is protected by the Federal Confidentiality of Alcohol and Drug Abuse Patient Records regulations: The Federal rules restrict any use of the information to criminally investigate or prosecute any alcohol or drug abuse patient.[facility] CenterIn the event this information is protected by the Federal Confidentiality of Alcohol and Drug Abuse Patient Records regulations: The Federal rules restrict any use of the information to criminally investigate or prosecute any alcohol or drug abuse patient.[facility] CenterIn the event this information is protected by the Federal Confidentiality of Alcohol and Drug Abuse Patient Records regulations: The Federal rules restrict any use of the information to criminally investigate or prosecute any alcohol or drug abuse patient.[facility] CenterIn the event this information is protected by the Federal Confidentiality of Alcohol and Drug Abuse Patient Records regulations: The Federal rules restrict any use of the information to criminally investigate or prosecute any alcohol or drug abuse patient.[facility] CenterIn the event this information is protected by the Federal Confidentiality of Alcohol and Drug Abuse Patient Records regulations: The Federal rules restrict any use of the information to criminally investigate or prosecute any alcohol or drug abuse patient.[facility] CenterIn the event this information is protected by the Federal Confidentiality of Alcohol and Drug Abuse Patient Records regulations: The Federal rules restrict any use of the information to criminally investigate or prosecute any alcohol or drug abuse patient.[facility] Reason for Visit (unrecogniz ed section and content) Reason Comments Follow Up Specialty Diagnoses / Procedures Referred By Contac t Referred To Contact Family Practice / FAMILY MEDICINE Diagnoses Follow up/not seen since 02/2020 Procedures 4C EST Self Corrina Lennon, COURT OPERATIONS CLERK.[employer] [address] [place] [address] Referral ID Status Reason Start Date Expiration Date V isits Requested Visits Authorized [id number] Closed Patient Cleared - INN Insurance Found [...] Date Comments Population Health Navigation Outreach 06/14/2022 [facility] care gaps Reason Onset Date Comments Anticoagulation 06/06/2022 Home INR Reason Onset Date Comments Anticoagulation 2022 INR result Reason Onset Date Comments Refill Request 07/22/2022 Reason Onset Date Comments Anticoagulation Telephone Fu 08/01/2022 Gabrielle e INR Result Reason Comments Consult Specialty Diagnoses / Procedures Referred By Anival aden Referred To Contact Cardiology / CARD ADMIN [facility] Diagnoses Paroxysmal atrial fibrillation (HCC) Nonrheumatic aortic valve stenosis Procedures CONSULT TO CARDIOLOGY OFFICE/OUTPATIENT [facility] 60-74 MINUTES Corrina Lennon, COURT OPERATIONS CLERK.[employer] [address] [place] [address] Card Admin [facility] [address] [place] [address] Referral ID Status Reason Start Date Expiration Date V isits Requested Visits Authorized [id number] Closed PCP Requested Referral 02/28/2022 10/15/2022 1 [...] e INR Result Reason Onset Date Comments AC LUIS RN 2023 Medication Ad herence review per request of payer Reason Onset Date Comments Refill Request 07/04/2023 Reason Comments 6 Month Exam Reason Comments Results Reason Onset Date Comments AC LUIS RN 09/05/2023 Medication Ad herence review per [...] Telephone Fu 03/07/2024 Reason Onset Date Comments [facility] LUIS RN 03/08/2024 Medication ad herence and suspected condition review per request of payor Reason Comments Follow Up Reason Comments Anticoagulation Telephone Fu Home INR Reason Comments Results Reason Onset Date Comments Anticoagulation Telephone Fu 04/08/2024 Gabrielle e INR Result Reason Comments Recheck 2 week follow up Reason Comments Radiology US Specialty Diagnoses / Procedures Referred By Anival t Referred To Contact [facility] IMAGING Diagnoses Renal insufficiency Procedures US KIDNEY/BLADDER US RETROPERITONEAL REAL TIME W/IMAGE COMPLETE Guanakito Reno MD [address] [place] [address] [place] [address] Referral ID Status Reason Start Date Expiration Date V isits Requested Visits Authorized [id number] Closed Auto-Generate d Referral 03/26/2024 04/25/2025 1 1 Reason Comments Follow Up htn- ultrasound on k idneys and labs, family worried about falls Reason Comments Adoption Services Manager - Other Reason Comments Edema Bilateral leg [...] 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 In Returned Goods Receiving Clerk [address] [place] [address] Referral ID Status Reason Start Date Expiration Date Visits Re quested Visits Authorized [id number] 1 1 Reason Onset Date Comments Anticoagulation [...] e INR Result Reason Comments Faxed to [facility] Reason Onset Date Comments Refill Request 04/08/2025 Reason Comments Patient Question Care Teams (unrecognized sec tion and content) Business Support Professional Relationship Specialty Start Date End Date Guanakito Reno MD [address] [place], [place] [address] PCP - [facility] Practice 05/24/18 13, Pharmacist [id number] [place] [address] Pharmacist Pharmacy 05/31/21 Business Support Professional Relationship Specialty Start Date End Date Guanakito Reno MD [address] [place], [place] [id number] PCP - General Family Practice 05/24/18 13, Pharmacist [id number] [place] [address] Pharmacist Pharmacy 05/31/21 Business Support Professional Relationship Specialty Start Date End Date Guanakito Reno MD [address] [place] [address] PCP - General Family Practice 05/24/18 13, Pharmacist [phone] [place] [address] Pharmacist Pharmacy 05/31/21 Business Support Professional Relationship Specialty Start Date End Date Guanakito Reno MD [address] [place] [address] PCP - General Family Practice 05/24/18 13, Pharmacist [phone] [place] [address] Pharmacist Pharmacy 05/31/21 Business Support Professional Relationship Specialty Start Date End Date Guanakito Reno MD [address] [place] [address] PCP - General Family Practice 05/24/18 13, Pharmacist [phone] [place] [address] Pharmacist Pharmacy 05/31/21 Business Support Professional Relationship Specialty Start Date End Date Guanakito Reno MD [address] [place] [address] PCP - General Family Practice 05/24/18 13, Pharmacist [phone] [place] [address] Pharmacist Pharmacy 05/31/21 Business Support Professional Relationship Specialty Start Date End Date Guanakito Reno MD [address] [place] [address] PCP - General Family Practice 05/24/18 13, Pharmacist [phone] [place] [address] Pharmacist Pharmacy 05/31/21 Business Support Professional Relationship Specialty Start Date End Date Guanakito Reno MD [address] [place] [address] PCP - General Family Practice 05/24/18 13, Pharmacist [phone] [place] [address] Pharmacist Pharmacy 05/31/21 Business Support Professional Relationship Specialty Start Date End Date Guanakito Reno MD [address] [place] [address] PCP - General Family Practice 05/24/18 13, Pharmacist [phone] [place] [address] Pharmacist Pharmacy 05/31/21 Business Support Professional Relationship Specialty Start Date End Date Guanakito Reno MD [address] [place] [address] PCP - General Family Medicine 05/24/18 13, Pharmacist [address] [place] [address] Pharmacist Pharmacy 05/31/21 Business Support Professional Relationship Specialty Start Date End Date Guanakito Reno MD [address] [place] [address] PCP - General Family Medicine 05/24/18 13, Pharmacist [address] [place] [address] Pharmacist Pharmacy 05/31/21 Business Support Professional Relationship Specialty Start Date End Date Guanakito Reno MD [address] [place] [address] PCP - General Family Medicine 05/24/18 13, Pharmacist [phone] [place] [address] Pharmacist Pharmacy 05/31/21 Business Support Professional Relationship Specialty Start Date End Date Guanakito Reno MD [address] [place] [address] PCP - General Family Medicine 05/24/18 13, Pharmacist [phone] [place] [address] Pharmacist Pharmacy 05/31/21 Business Support Professional Relationship Specialty Start Date End Date Guanakito Reno MD [address] [place] [address] PCP - General Family Medicine 05/24/18 13, Pharmacist [phone] [place] [address] Pharmacist Pharmacy 05/31/21 Business Support Professional Relationship Specialty Start Date End Date Guanakito Reno MD [address] [place] [address] PCP - General Family Medicine 05/24/18, Pharmacist [phone] [place] [address] Pharmacist Pharmacy 05/31/21 Business Support Professional Relationship Specialty Start Date End Date Guanakito Reno MD [address] [place] [address] PCP - General Family Medicine 05/24/18, Pharmacist [phone] [place] [id number] Pharmacist Pharmacy 05/31/21 Business Support Professional Relationship Specialty Start Date End Date Guanakito Reno MD [address] [place] [address] PCP - General Family Medicine 05/24/18, Pharmacist [id number] [place] [address] Pharmacist Pharmacy 05/31/21 Business Support Professional Relationship Specialty Start Date End Date Guanakito Reno MD [address] [place] [address] PCP - General Family Medicine 05/24/18 13, Pharmacist [address] [place] [address] Pharmacist Pharmacy 05/31/21 Business Support Professional Relationship Specialty Start Date End Date Guanakito Reno MD [address] [place] [address] PCP - General Family Medicine 05/24/18 13, Pharmacist [address] [place] [address] Pharmacist Pharmacy 05/31/21 Business Support Professional Relationship Specialty Start Date End Date Guanakito Reno MD [address] [place] [address] PCP - General Family Medicine 05/24/18 13, Pharmacist [address] [place] [address] Pharmacist Pharmacy 05/31/21 Business Support Professional Relationship Specialty Start Date End Date Guanakito Reno MD [address] [place] [address] PCP - General Family Medicine 05/24/18 13, Pharmacist [address] [place] [address] Pharmacist Pharmacy 05/31/21 Business Support Professional Relationship Specialty Start Date End Date Guanakito Reno MD [address] [place] [address] PCP - General Family Medicine 05/24/18 13, Pharmacist [address] [place] [address] Pharmacist Pharmacy 05/31/21 Business Support Professional Relationship Specialty Start Date End Date Guanakito Reno MD [address] [place] [address] PCP - General Family Medicine 05/24/18 13, Pharmacist [address] [place] [address] Pharmacist Pharmacy 05/31/21 Business Support Professional Relationship Specialty Start Date End Date Guanakito Reno MD [address] [place] [address] PCP - General Family Medicine 05/24/18 13, Pharmacist [address] [place] [address] Pharmacist Pharmacy 05/31/21 Business Support Professional Relationship Specialty Start Date End Date Guanakito Reno MD [address] [place] [address] PCP - General Family Medicine 05/24/18 13, Pharmacist [address] [place] [address] Pharmacist Pharmacy 05/31/21 Business Support Professional Relationship Specialty Start Date End Date Guanakito Reno MD [address] [place] [address] PCP - General Family Medicine 05/24/18 13, Pharmacist [address] [place] [address] Pharmacist Pharmacy 05/31/21 Business Support Professional Relationship Specialty Start Date End Date Guanakito Reno MD [address] [place] [address] PCP - General Family Medicine 05/24/18, Pharmacist [address]221 [place] [address] Pharmacist Pharmacy 05/31/21 Business Support Professional Relationship Specialty Start Date End Date Guanakito Reno MD [address] [place] [address] PCP - General Family Medicine 05/24/18, Pharmacist 19605 [place] [address] Pharmacist Pharmacy 05/31/21 Business Support Professional Relationship Specialty Start Date End Date Guanakito Reno MD [address] [place] [address] PCP - General Family Medicine 05/24/18 13, Pharmacist [address]702 [place] [address] Pharmacist Pharmacy 05/31/21 Business Support Professional Relationship Specialty Start Date End Date Guanakito Reno MD [address] [place] [address] PCP - General Family Medicine 05/24/18 13, Pharmacist [address] [place] [address] Pharmacist Pharmacy 05/31/21 Business Support Professional Relationship Specialty Start Date End Date Guanakito Reno MD [address] [place] [address] PCP - General Family Medicine 05/24/18 13, Pharmacist [address]16 [place] [address] Pharmacist Pharmacy 05/31/21 Business Support Professional Relationship Specialty Start Date End Date Guanakito Reno MD [address] [place] [address] PCP - General Family Medicine 05/24/18, Pharmacist [address] [place] [address] Pharmacist Pharmacy 05/31/21 Business Support Professional Relationship Specialty Start Date End Date Guanakito Reno MD [address] [place] [address] PCP - General Family Medicine 05/24/18, Pharmacist [address]8963 [place] [address] Pharmacist Pharmacy 05/31/21 Business Support Professional Relationship Specialty Start Date End Date Guanakito Reno MD [address] [place] [address] PCP - General Family Medicine 05/24/18 13, Pharmacist [address] [place] [address] Pharmacist Pharmacy 05/31/21 Business Support Professional Relationship Specialty Start Date End Date Guanakito Reno MD [address] [place] [address] PCP - General Family Medicine 05/24/18 13, Pharmacist [address] [place] [address] Pharmacist Pharmacy 05/31/21 Business Support Professional Relationship Specialty Start Date End Date Guanakito Reno MD [address] [place] [address] PCP - General Family Medicine 05/24/18 13, Pharmacist [address] [place] [address] Pharmacist Pharmacy 05/31/21 Business Support Professional Relationship Specialty Start Date End Date Guanakito Reno MD [address] [place] [address] PCP - General Family Medicine 05/24/18 13, Pharmacist [address]1966 [place] [address] Pharmacist Pharmacy 05/31/21 Business Support Professional Relationship Specialty Start Date End Date Guanakito Reno MD [address] [place] [address] PCP - General Family Medicine 05/24/18 13, Pharmacist [address] [place] [address] Pharmacist Pharmacy 05/31/21 Business Support Professional Relationship Specialty Start Date End Date Guanakito Reno MD [address] [place] [address] PCP - General Family Medicine 05/24/18 13, Pharmacist [address] [place] [address] Pharmacist Pharmacy 05/31/21 Business Support Professional Relationship Specialty Start Date End Date Guanakito Reno MD [address] [place] [address] PCP - General Family Medicine 05/24/18 13, Pharmacist [address] [place] [address] Pharmacist Pharmacy 05/31/21 Business Support Professional Relationship Specialty Start Date End Date Guanakito Reno MD [address] [place] [address] PCP - General Family Medicine 05/24/18 13, Pharmacist [address] [place] [address] Pharmacist Pharmacy 05/31/21 Business Support Professional Relationship Specialty Start Date End Date Guanakito Reno MD [address] [place] [address] PCP - General Family Medicine 05/24/18, Pharmacist [address] [place] [address] Pharmacist Pharmacy 05/31/21 Business Support Professional Relationship Specialty Start Date End Date Guanakito Reno MD [address] [place] [address] PCP - General Family Medicine 05/24/18 13, Pharmacist [address]23 [place] [address] Pharmacist Pharmacy 05/31/21 Business Support Professional Relationship Specialty Start Date End Date Guanakito Reno MD [address] [place] [address] PCP - General Family Medicine 05/24/18 13, Pharmacist 72022 [place] [address] Pharmacist Pharmacy 05/31/21 Business Support Professional Relationship Specialty Start Date End Date Guanakito Reno MD [address] [place] [address] PCP - General Family Medicine 05/24/18 13, Pharmacist [address]64 [place] [address] Pharmacist Pharmacy 05/31/21 Business Support Professional Relationship Specialty Start Date End Date Guanakito Reno MD [address] [place] [address] PCP - General Family Medicine 05/24/18 13, Pharmacist 00920 [place] [address] Pharmacist Pharmacy 05/31/21 Business Support Professional Relationship Specialty Start Date End Date Guanakito Reno MD [address] [place] [address] PCP - General Family Medicine 05/24/18, Pharmacist [address]408 [place] [address] Pharmacist Pharmacy 05/31/21 Business Support Professional Relationship Specialty Start Date End Date Guanakito Reno MD [address] [place] [address] PCP - General Family Medicine 05/24/18, Pharmacist [address]37 [place] [address] Pharmacist Pharmacy 05/31/21 Business Support Professional Relationship Specialty Start Date End Date Guanakito Reno MD [address] [place] [address] PCP - General Family Medicine 05/24/18, Pharmacist [address]38 [place] [address] Pharmacist Pharmacy 05/31/21 Business Support Professional Relationship Specialty Start Date End Date Guanakito Reno MD [address] [place] [address] PCP - General Family Medicine 05/24/18 13, Pharmacist [address]29 [place] [address] Pharmacist Pharmacy 05/31/21 Business Support Professional Relationship Specialty Start Date End Date Guanakito Reno MD [address] [place] [address] PCP - General Family Medicine 05/24/18 13, Pharmacist [address] [place] [address] Pharmacist Pharmacy 05/31/21 Business Support Professional Relationship Specialty Start Date End Date Guanakito Reno MD [address] [place] [address] PCP - General Family Medicine 05/24/18 13, Pharmacist [address]175 [place] [address] Pharmacist Pharmacy 05/31/21 Corrina Lennon APRN.PARK [employer]ICE [address] [place] [address] Grind Operator Family Medicine 09/23/24 Carolina Landeros APRN.PARK POLICE [address] [place] [address] Grind Operator Family Medicine 09/23/24 Business Support Professional Relationship Specialty Start Date End Date Guanakito Reno MD [address] [place] [address] PCP - General Family Medicine 05/24/18 13, Pharmacist [address] [place] [address] Pharmacist Pharmacy 05/31/21 Corrina Lennon APRN.PARK [employer]ICE [address] [place] [address] Grind Operator Family Medicine 09/23/24 Carolina Landeros APRN.PARK POLICE [address] [place] [address] Grind Operator Family Medicine 09/23/24 Business Support Professional Relationship Specialty Start Date End Date Guanakito Reno MD [address] [place] [address] PCP - General Family Medicine 05/24/18 13, Pharmacist [address]117 [place] [address] Pharmacist Pharmacy 05/31/[address] OPERATIONS CLERK.PARK POLICE [address] [place] [address] Grind Operator Family Medicine 09/23/[address] OPERATIONS CLERK.PARK POLICE [address] [place] [address] Grind Operator Family Medicine 09/23/24 Business Support Professional Relationship Specialty Start Date End Date Guanakito Reno MD [address] [place] [address] PCP - General Family Medicine 05/24/18 13, Pharmacist [address]503 [place] [address] Pharmacist Pharmacy 05/31/[address] OPERATIONS CLERK.PARK POLICE [address] [place] [address] Grind Operator Family Medicine 09/23/24 Carolina Landeros, COURT OPERATIONS CLERK.PARK POLICE [address] [place] [address] Grind Operator Family Medicine 09/23/24 Business Support Professional Relationship Specialty Start Date End Date Guanakito Reno MD [address] [place] [address] PCP - General Family Medicine 05/24/18 13, Pharmacist [address] [place] [address] Pharmacist Pharmacy 05/31/21 Corrina Lennon APRN.PARK POLICE [address] [facility] [place] [address] Grind Operator Family Medicine 09/23/24 Carolina Landeros APRN.PARK POLICE [address] [place] [address] Grind Operator Family Medicine 09/23/24 Business Support Professional Relationship Specialty Start Date End Date Guanakito Reno MD [address] [place] [address] PCP - General Family Medicine 05/24/18 13, Pharmacist [address] [place] [address] Pharmacist Pharmacy 05/31/21 Corrina Lennon APRN.PARK POLICE [address] [facility] [place] [address] Grind Operator Family Medicine 09/23/24 Carolina Landeros APRN.PARK POLICE [address] [place] [address] [facility] 09/23/24 Business Support Professional Relationship Specialty Start Date End Date Guanakito Reno MD [address] [place] [address] PCP - General Family Medicine 05/24/18 13, Pharmacist [address] [place] [address] Pharmacist Pharmacy 05/31/21 Corrina Lennon APRN.PARK POLICE [address] [facility] [place] [address] Grind Operator Family Medicine 09/23/24 Carolina Landeros APRN.PARK POLICE [address] [place] [address] Grind Operator Family Medicine 09/23/24 Business Support Professional Relationship Specialty Start Date End Date Guanakito Reno MD [address] [place] [address] PCP - General Family Medicine 05/24/18 13, Pharmacist [address]59 [place] [address] Pharmacist Pharmacy 05/31/[address] OPERATIONS CLERK.PARK POLICE [address] [place] [address] Grind Operator [facility] Medicine 09/23/[address] OPERATIONS CLERK.PARK POLICE [address] [place] [address] [facility] 09/23/24 Business Support Professional Relationship Specialty Start Date End Date Guanakito Reno MD [address] [place] [address] PCP - General Family Medicine 05/24/18 13, Pharmacist [address]257 [place] [address] Pharmacist Pharmacy 05/31/[address] OPERATIONS CLERK.PARK POLICE [address] [place] [address] Grind Operator Family Medicine 09/23/[address] OPERATIONS CLERK.PARK POLICE [address] [place] [address] Grind Operator [facility] Medicine 09/23/24 Business Support Professional Relationship Specialty Start Date End Date Guanakito Reno MD [address] [place] [address] PCP - General Family Medicine 05/24/18 13, Pharmacist [address] [place] [address] Pharmacist Pharmacy 05/31/21 Corrina Lennon APRN.PARK POLICE [address] [place] [address] Grind Operator Family Medicine 09/23/24 Carolina Landeros APRN.PARK [employer]ICE [address] [place] [address] Grind Operator Family Medicine 09/23/24 Business Support Professional Relationship Specialty Start Date End Date Guanakito Reno MD [address] [place] [address] PCP - General Family Medicine 05/24/18 13, Pharmacist [address] [place] [address] Pharmacist Pharmacy 05/31/21 Corrina Lennon APRN.PARK POLICE [address] [place] [address] Grind Operator Family Medicine 09/23/[address] OPERATIONS CLERK.PARK POLICE [address] [place] [address] Grind Operator Family Medicine 09/23/24 Business Support Professional Relationship Specialty Start Date End Date Guanakito Reno MD [address] [place] [address] PCP - General Family Medicine 05/24/18 13, Pharmacist [address] [place] [address] Pharmacist Pharmacy 05/31/21 Crorina Lennon APRN.PARK POLICE [address] [facility] [place] [address] [facility] 09/23/24 Carolina Landeros, COURT OPERATIONS CLERK.PARK POLICE [address] [facility] [address] [facility] 09/23/24 Team Status: Active Member Role/Relationship Status [...] BE BASED ON THE PRIMARY CLINICAL RECORDS. [facility]. provides no warranty or guarantee of the accuracy or completeness of information in this document.
[2025-05-15 09:09] LABS: Prothrombin Time (Protime)PT. 25.3 SECONDS (11.7-14.9)
== END ==
LOC: OLS.SW 05:00
PROVIDERS: PCP Family Medicine; Visit Provider Family Medicine
DX: I48.91 Unspecified atrial fibrillation (principal)
CPT/HCPCS: 36415; 85610

== ENCOUNTER → 2025-05-20 | Outpatient (REF) | payer MEDICARE, SELFPAY ==
--- OUTSIDE RECORDS SUMMARY | 2025-05-20 03:41 | XMS RPT_ITS | CCD ---
Author Organization [facility] Care Team Providers Care Tax Manager Public Name Role Phone VIPIN CARDONA Unavailable Unavailable VIPIN CARDONA Unavailable Unavailable Mannie Bang Unavailable Unavailable VIPIN CARDONA Unavailable Unavailable VIPIN CARDONA Unavailable Unavailable Mannie Bang Unavailable Unavailable Guanakito Reno MD Primary Care Provider 13, Pharmacist Unavailable Guanakito Reno MD Primary Care Provider 13, Pharmacist Unavailable Guanakito Reno MD Primary Care Provider [phone] Guanakito Reno MD Primary Care Provider 13, Pharmacist Unavailable Guanakito Reno MD Primary Care Provider Haagen TEXTILE CONSERVATOR.Corrina OCONNELL Unavailable [phone] Suppan TEXTILE CONSERVATOR.KOURTNEY, Carolina A Unavailable [phone] Suppan TEXTILE CONSERVATOR.KOURTNEY, Carolina A Unavailable JOSSELYN MAYER Referring Unavailable GUANAKITO RENO Primary Care Unavailable KAM, KHALED MAULIKOUD Attending Unavailable GUANAKITO RENO Primary Care Unavailable GUANAKITO RENO Primary Care Unavailable CAL THACKER Attending Unavailable LAURA IRAHETA Attending Unavailable GUANAKITO RENO Primary Care Unavailable SLEVIRGILIO, KHALED MELOUD Admitting Unavailable SLEIK, KHALED MELOUD Attending Unavailable KAM, KHALED MELOUD Referring Unavailable GUANAKITO RENO Primary Care Unavailable JOSSELYN MAYER Referring Unavailable SHADIA, GUANAKITO J Primary Care Unavailable KEDAR HERNANDEZ Attending Unava [...] Provider Noah JAMES, Dr. [place] Attending Provider [phone] CAROLINA LANDEROS Attending Unavailable SHADIA, GUANAKITO J [...] Unavailable SHADIA, GUANAKITO J Primary Care Unavailable Burt Zamora Attending Unavailable Shadia, Guanakito Primary Care Unavailable Josafat Oliva Attending Unavailable Shadia, Guanakito Primary Care Unavailable Josafat Oliva Attending Unavailable [place], Guanakito Primary Care Unavailable Josafat Oliva Attending Unavailable Shadia, Guanakito Primary Care Unavailable Raquel, Josafat Referring Unavailable Josafat García Attending Unavailable Shadia, Guanakito Primary Care Unavailable Josafat Oliva Attending Unavailable Shadia, Guanakito Primary Care Unavailable Josafat Oliva Attending Unavailable [place], Guanakito Primary Care Unavailable Ariana Khan Attending Unavailable Shadia, Guanakito Primary Care Unavailable Ariana Khan Referring Unavailable Josafat Oliva Attending Unavailable [place], Guanakito Primary Care Unavailable Josafat Oliva Attending Unavailable [place], Guanakito Primary Care Unavailable [place], Guanakito Primary Care Unavailable Bianka Olivera Attending Unavailable Josafat García Attending Unavailable Shadia, Guanakito Primary Care Unavailable Shadia, Guanakito Referring Unavailable Shadia, Guanakito Referring Unavailable Shadia, Guanakito Primary Care Unavailable David Navarrete Attending Unavailable Allergies Allergy Classification Reported Allergen(s) Allergy Type Date of Onset Reaction(s) Facility (3 sources) Environmental Allergies: Uncoded; Translations: [Environmental Allergies: Uncoded] Allergy to substance [facility] Medications Current Medications Medication Drug Class(es) Dates [...] Comment on above: Take 1 tablet by [facility] daily. glucagon (rdna) 1 mg injection [...] hydrochloride 10 mg oral tablet (20 sources) K-cftcae-K-aspart ate Receptor Antagonist Start: 08-21-2019 End: 01-21-2025 [...] 1.5 tablets (7.5 mg) on Mon and Th; 5 mg all other days of the [...] provided with radiology test) (20 sources) Start: inject 1 dose intravenously once iv contrast [...] 4 11-11-2016 Chronic Other aftercare (2 sources) [facility] (current) use of anticoagulants; Translations: [[facility] (current) use of anticoagulants] Onset: 0 Episodic Other aftercare (1 source) Other terminal computer operator (current) drug therapy; Translations: [Other terminal computer operator (current) drug therapy] Onset: 5 Episodic Other [...] allergic rhinitis; Translations: [Other seasonal allergic rhinitis] 04-08-2025 Chronic Gladis-; endo-; and myocarditis; cardiomyopathy (except [...] sources) Long-term current use of anticoagulant; Translations: [[facility] (current) use of anticoagulants] Onset: 02-04-2020 02-04-2020 [...] Time w/INRon INR Coag (PPP) [Relative time] 2.3 {INR} Normal [facility] Comment on above: Order Comment: 317.1 Performed By: #### L 295.3904 #### [facility] [place], [address] PT Coag (PPP) [Time] 25.3 s High 11.7-14.9 [facility] Comment on above: Order Comment: 317.1 Performed By: #### L 300.3900 #### [facility] [address] [place], [address] Prothrombin Time w/INRon INR Coag (PPP) [Relative time] 1.7 {INR} Normal [facility] Comment on above: Order Comment: 317.1 Performed By: #### L 300.3900 #### [facility] [address] [place], [address] PT Coag (PPP) [Time] 20.6 s High 11.7-14.9 [facility] Comment on above: Order Comment: 317.1 Performed By: #### L 300.3900 #### [facility] [address] [place], [address] Prothrombin Time w/INRon INR Coag (PPP) [Relative time] 3.2 {INR} Normal [facility] Comment on above: Order Comment: 317.1 Performed By: #### L 300.3900 #### [facility] [address] [place], [address] PT Coag (PPP) [Time] 33.1 s High 11.7-14.9 [facility] Comment on above: Order Comment: 317.1 Performed By: #### L 300.3900 #### [facility] [address] [place], [address] Prothrombin Time w/INRon INR Coag (PPP) [Relative time] 4.1 {INR} Invalid Interpretation Code [facility] Comment on above: Order Comment: FLORES RSTICK CONFIRMATION Result Comment: CRIT ICAL VALUE CALLED TO IRMA SOLOMON (OLS.SW) 05/06/25 0801 Travis Ortiz RESULTS READ BACK BY SAME. Performed By: #### L 300.3900 #### [facility] [address] [place], [place], [id number] PT Coag (PPP) [Time] 40.8 s High 11.7-14.9 [facility] Comment on above: Order Comment: FINGE RSTICK CONFIRMATION Performed By: #### L 300.3900 #### [facility] [address] [place], [place], [id number] Protime w/INR Fingerstickon 05-06-2025 INR Coag (PPP) [Relative time] 4.3 {INR} Invalid Interpretation Code [facility] Comment on above: Result Comment: Crit ical Value > 4.0 Performed By: #### L 300.3900 #### [facility] [address] [place], [place], [address] Protime Coagsen 42.3 SEC High 11.7-14.9 [facility] Comment on above: Performed By: #### L 300.3900 #### [facility] [address] [place], [place], [id number] Orthopedic Visit Reporton Orthopedic Visit Report [facility] [address] [place] [address] [address] [place], [place] [address] OFFICE VISIT Date of Service: 05/02/25 MR#: [id number] Acct: [id number] Name: CAL MITCHELL Rep #: [id number] : 1945 Provider: Dr. David Jones so DO Age/Sex: 79/M Location: [facility] Status: Signed Intake Vital Signs 03/07/25 12:57 [...] History acetaminophen 650 mg rectal 650 mg OR Q4H PRN 05/02/25 5 History suppository aluminum-mag hydroxide-simethicone 30 ml PO Q4H PRN 05/02/25 History 200 mg-200 mg-20 mg/5 mL oral susp (Antacid) bisacodyl 10 mg rectal suppository 10 mg OR QDAY PRN 05/02/2505/02 History (Dulcolax (bisacodyl)) dextrose [...] hr sodium phosphates 19 gram-7 118 ml OR ONCE PRN 05/02/25 History gram/118 mL enema [...] is here today with his son and momcevdt-mr-auh. Usually ambulates with a walker or a cane. Had a fall. Was mainly complaining about pain to the upper extremity was seen in a peripheral hospital referred here given a sling they found approximately wrist fracture on the right side. The patient does not speak very much but he converses overall well he is ogvpd-dzkj-obicfndo fairly stoic. Plan:79-year-old man with a (more content not included)... Normal [facility] Shoulder min 2 Viewson 05-02 Shoulder min 2 Views [facility] Imaging Services [address], [place] [address] Shoulder min 2 Views MR#: [id number] Acct: [id number] Name: CAL MITCHELL Rep #: [id number] : 1945 M 79 From: [place]ena Lala PCP: Dr. Guanakito Reno MD Status: DEP AMB Study: Shoulder min 2 Views Date of Exam: 05/02/25 Exam# [id number] Ordering Dr: David Navarrete DO PROCEDURE: SHOULDER [...] changes involving the glenohumeral joint. Reading Location: [id number] CC: Dr. David Navarrete DO; Dr. Guanakito Reno MD Air Brake Tester: Signed Normal [facility] International normalized rat io (INR) calculationOrdered By: Josafat Simon on 05-01-2025 INR Coag (Bld) [Relative time] 3.2 {INR} [facility] Prothrombin Time w/INRon INR Coag (PPP) [Relative time] 3.2 {INR} Normal [facility] Comment on above: Performed By: #### L 300.3900 #### [facility] [address] [place], [address] PT Coag (PPP) [Time] 33.6 s High 11.7-14.9 [facility] Comment on above: Performed By: #### L 300.3900 #### [facility] [address] [place], [address] (928) Prothrombin timeOrdered By: Josafat Simon on 05-01-2025 PT Coag (PPP) [Time] 33.6 s High 11.7-14.9 [facility] International normalized rat io (INR) calculationOrdered By: Josafat Simon on 04-29-2025 INR Coag (Bld) [Relative time] 3.1 {INR} [facility] Prothrombin Time w/INRon INR Coag (PPP) [Relative time] 3.1 {INR} Normal [facility] Comment on above: Performed By: #### L 300.3900 #### [facility] [address] [place], [address] Prothrombin timeOrdered By: Josafat Simon on 04-29-2025 PT Coag (PPP) [Time] 32.2 s High 11.7-14.9 [facility] Comment on above: Performed By: #### L 300.3900 #### [facility] [address] [place], [address] International normalized rat io (INR) measurement by fingerstickOrdered By: Josafat Simon on 04-24-2025 INR Coag (BldC) [Relative time] 3.5 [facility] Comment on above: Critical Value > 4.0 Protime w/INR Fingerstickon 04-24-2025 INR Coag (PPP) [Relative time] 3.5 {INR} Normal [facility] Comment on above: Result Comment: Crit ical Value > 4.0 Performed By: #### L 9200.0000 #### [facility] [address] [place], [address] Protime Coagsen 35.4 SEC High 11.7-14.9 [facility] Comment on above: Performed By: #### L 9200.0000 #### [facility] [address] [place], [address] Whole blood prothrombin time Ordered By: Josafat Simon on 04-24-2025 PT Coag (Bld) [Time] 35.4 s High 11.7-14.9 [facility] Anion gap in Serum or Plasma Ordered By: Bianka Gonzalez on 04-17-2025 Anion gap [Moles/Vol] 10 mmol/L 5-15 [facility] BUN/creatinine ratioOrdered By: Bianka Gonzalez on 04-17-2025 Urea nitrogen/Creatinine [Mass ratio] 21.1 mg/mg High - [facility] Basic Metabolic Profile (BMP )on 04-17-2025 BUN/CRE 21.1 RATIO High - [facility] Comment on above: Order Comment: 213 Performed By: #### L 100.0500, L500.2500, L300.3900 #### [facility] [address] [place], [address] Calcium [Mass/Vol] 8.2 mg/dL Normal 7.6-11.0 [facility] Comment on above: Order Comment: 213 Performed By: #### L 100.0500, L500.2500, L300.3900 #### [facility] [address] [place], [address] Chloride [Moles/Vol] 111 mmol/L High 98-108 [facility] Comment on above: Order Comment: 213 Performed By: #### L 100.0500, L500.2500, L300.3900 #### [facility] [address] [place], [address] CO2 [Moles/Vol] 17.2 mmol/L Low 21.0-32.0 [facility] Comment on above: Order Comment: 213 Performed By: #### L 100.0500, L500.2500, L300.3900 #### [facility] [address] [place], [address] Creatinine [Mass/Vol] 2.45 mg/dL High 0.70-1.20 [facility] Comment on above: Order Comment: 213 Performed By: #### L 100.0500, L500.2500, L300.3900 #### [facility] [address] [place], [address] GAP 10 Normal 5-15 [facility] Comment on above: Order Comment: 213 Performed By: #### L 100.0500, L500.2500, L300.3900 #### [facility] [address] [place], [address] GFR/1.73 sq M.predicted among non-blacks MDRD (S/P/Bld) [Vol rate/Area] 26 mL/min/{1.73_m2} Low >60 [facility] Comment on above: Order Comment: 213 Result Comment: mL/m in/1.73m2 CKD-EPI Creatinine Equation (2020) Performed By: #### L 100.0500, L500.2500, L300.3900 #### [facility] [address] [place], [address] Glucose [Mass/Vol] 137 mg/dL High 70-99 [facility] Comment on above: Order Comment: 213 Performed By: #### L 100.0500, L500.2500, L300.3900 #### [facility] [address] [place], [address] Potassium [Moles/Vol] 4.9 mmol/L Normal 3.3-5.1 [facility] Comment on above: Order Comment: 213 Performed By: #### L 100.0500, L500.2500, L300.3900 #### [facility] [address] [place], [address] Sodium [Moles/Vol] 139 mmol/L Normal 133-145 [facility] Comment on above: Order Comment: 213 Performed By: #### L 100.0500, L500.2500, L300.3900 #### [facility] [address] [place], [address] Urea nitrogen [Mass/Vol] 52 mg/dL High 4-19 [facility] Comment on above: Order Comment: 213 Performed By: #### L 100.0500, L500.2500, L300.3900 #### [facility] [address] [place], [address] CBC-Complete Blood Cnt No Di ffon 04-17-2025 Erythrocyte distribution width (RBC) [Ratio] 16.4 % High 11.6-14.6 [facility] Comment on above: Order Comment: 213 Performed By: #### L 100.0500, L500.2500, L300.3900 #### [facility] [address] [place], [address] Hematocrit (Bld) [Volume fraction] 35.2 % Low 40-54 [facility] Comment on above: Order Comment: 213 Performed By: #### L 100.0500, L500.2500, L300.3900 #### [facility] [address] [place], [address] Hemoglobin (Bld) [Mass/Vol] 10.6 g/dL Low 13.0-16.5 [facility] Comment on above: Order Comment: 213 Performed By: #### L 100.0500, L500.2500, L300.3900 #### [facility] [address] [place], [address] MCH (RBC) [Entitic mass] 29.2 pg Normal 27.0-32.0 [facility] Comment on above: Order Comment: 213 Performed By: #### L 100.0500, L500.2500, L300.3900 #### [facility] [address] [place], [address] MCHC (RBC) [Mass/Vol] 30.1 g/dL Low 32-36 [facility] Comment on above: Order Comment: 213 Performed By: #### L 100.0500, L500.2500, L300.3900 #### [facility] [address] [place], [address] MCV (RBC) [Entitic vol] 97.0 fL High 80-94 [facility] Comment on above: Order Comment: 213 Performed By: #### L 100.0500, L500.2500, L300.3900 #### [facility] [address] [place], [address] Platelet mean volume (Bld) [Entitic vol] 10.0 fL Normal 6.2-12.0 [facility] Comment on above: Order Comment: 213 Performed By: #### L 100.0500, L500.2500, L300.3900 #### [facility] [address] [place], [address] Platelets (Bld) [#/Vol] 161 10*3/uL Normal 150-450 [facility] Comment on above: Order Comment: 213 Performed By: #### L 100.0500, L500.2500, L300.3900 #### [facility] [address] [place], [address] RBC (Bld) [#/Vol] 3.63 10*6/uL Low 4.6-6.2 [facility] Comment on above: Order Comment: 213 Performed By: #### L 100.0500, L500.2500, L300.3900 #### [facility] [address] [place], [address] RDW SD 58.6 fl High 35.1-43.9 [facility] Comment on above: Order Comment: 213 Performed By: #### L 100.0500, L500.2500, L300.3900 #### [facility] [address] [place], [address] WBC (Bld) [#/Vol] 7.2 10*3/uL Normal 4.4-11.0 [facility] Comment on above: Order Comment: 213 Performed By: #### L 100.0500, L500.2500, L300.3900 #### [facility] [address] [place], [address] Carbon dioxide, total [Moles /volume] in Central venous bloodOrdered By: Bianka Gonzalez on 04-17-2025 CO2 [Moles/Vol] 17.2 mmol/L Low 21.0-32.0 [facility] Chloride assayOrdered By: Josr Gonzalez on 04-17-2025 Chloride [Moles/Vol] 111 mmol/L High 98-108 [facility] Erythrocyte distribution wid th ratioOrdered By: Bianka Gonzalez on 04-17-2025 Erythrocyte distribution width (RBC) [Ratio] 16.4 % High 11.6-14.6 [facility] Erythrocyte distribution wid th standard deviationOrdered By: Bianka Gonzalez on 04-17-2025 Erythrocyte distribution width (RBC) [Ratio] 58.6 fl High 35.1-43.9 [facility] Glomerular filtration rate ( GFR) estimation/1.73 sq m using serum, plasma, or whole bOrdered By: Bianka Gonzalez on 04-17-2025 GFR/1.73 sq M.predicted among non-blacks MDRD (S/P/Bld) [Vol rate/Area] 26 mL/min/{1.73_m2} Low >60 [facility] Comment on above: mL/min/1.73m2 CKD-EP I Creatinine Equation (2020) Hematocrit Auto (Bld) [Volum e fraction]Ordered By: Bianka Gonzalez on 04-17-2025 Hematocrit (Bld) [Volume fraction] 35.2 % Low 40-54 [facility] Hemoglobin measurementOrdere d By: Bianka Gonzalez on 04-17-2025 Hemoglobin (Bld) [Mass/Vol] 10.6 g/dL Low 13.0-16.5 [facility] International normalized rat io (INR) calculationOrdered By: Bianka Gonzalez on 04-17-2025 INR Coag (Bld) [Relative time] 2.7 {INR} [facility] MCV (mean corpuscular volume ) determinationOrdered By: Bianka Gonzalez on 04-17-2025 MCV (RBC) [Entitic vol] 97.0 fL High 80-94 [facility] Mean corpuscular hemoglobin (MCH) determinationOrdered By: Bianka Gonzalez on 04-17-2025 MCH (RBC) [Entitic mass] 29.2 pg 27.0-32.0 [facility] Mean corpuscular hemoglobin concentration (MCHC) determinationOrdered By: Bianka Gonzalez on 04-17-2025 MCHC (RBC) [Mass/Vol] 30.1 g/dL Low 32-36 [facility] Mean platelet volume determi nationOrdered By: Bianka Gonzalez on 04-17-2025 Platelet mean volume (Bld) [Entitic vol] 10.0 fL 6.2-12.0 [facility] Platelet countOrdered By: Josr Gonzalez on 04-17-2025 Platelets (Bld) [#/Vol] 161 10*3/uL 150-450 [facility] Potassium measurement (mass/ volume)Ordered By: Bianka Gonzalez on 04-17-2025 Potassium (Unsp spec) [Mass/Vol] 4.9 mmol/L 3.3-5.1 [facility] Prothrombin Time w/INRon INR Coag (PPP) [Relative time] 2.7 {INR} Normal [facility] Comment on above: Order Comment: 213 Performed By: #### L 100.0500, L500.2500, L300.3900 #### [facility] [address] [place], [address] PT Coag (PPP) [Time] 29.7 s High 11.7-14.9 [facility] Comment on above: Order Comment: 213 Performed By: #### L 100.0500, L500.2500, L300.3900 #### [facility] [address] [place], [address] Prothrombin timeOrdered By: Bianka Gonzalez on 04-17-2025 PT Coag (PPP) [Time] 29.7 s High 11.7-14.9 [facility] RBC Auto (Bld) [#/Vol]Ordere d By: Bianka Gonzalez on 04-17-2025 RBC (Bld) [#/Vol] 3.63 10*6/uL Low 4.6-6.2 [facility] Serum creatinine measurement (mass/volume)Ordered By: Bianka Gonzalez on 04-17-2025 Creatinine [Mass/Vol] 2.45 mg/dL High 0.70-1.20 [facility] Serum glucose measurement (m ass/volume)Ordered By: Bianka Gonzalez on 04-17-2025 Glucose [Mass/Vol] 137 mg/dL High 70-99 [facility] Serum or plasma calcium cornelius urement (mass/volume)Ordered By: Bianka Gonzalez on 04-17-2025 Calcium [Mass/Vol] 8.2 mg/dL 7.6-11.0 [facility] Serum or plasma urea nitroge n measurement (mass/volume)Ordered By: Bianka Gonzalez on 04-17-2025 Urea nitrogen [Mass/Vol] 52 mg/dL High 4-19 [facility] Sodium levelOrdered By: Nestor Gonzalez on 04-17-2025 Sodium [Moles/Vol] 139 mmol/L 133-145 [facility] White blood cell (WBC) count Ordered By: Bianka Gonzalez on 04-17-2025 WBC (Bld) [#/Vol] 7.2 10*3/uL 4.4-11.0 [facility] 04-15-2025 CNPN Telephone (PHAMTE) -------- PAULACAL KRAUS ([id number]) 1945 M Date Time Provider Department 04/15/25 [place] During your visit today, we recorded the following information about you: [facility] 04/15/2025 9:12 AM Signed [facility] Anticoagulation Episode Summary Anticoagulation Care Providers Provider Role Specialty Phone number Guanakito Reno MD [facility] Medicine [phone] Cal Mitchell is a 79 year old [...] Pharmacy Anticoagulation Clinic Pharmacy Anticoagulation Clinic Pager: [phone]. Twin Cole RPh 04/29/2025 8:54 AM Signed [...] to patient's daughter. Patient has moved to [facility]. His INRs are monitored there. Will discharge patient from [facility] Daniel (Magnetic Tape Composer Operator)Ashley 05/06/2025 2:31 PM Signed Pharmacy Anticoagulation Clinic Discharge completed at this time. Patient may be re-referred, if deemed appropriate. Ashley Sanchez; [facility] (Magnetic Tape Composer Operator) Pharmacy Anticoagulation Clinic Allergies As of Date: 04/15/2025 (No Known Allergies) Date Reviewed: 03/05/2025 Reviewed by: Jack oHlcomb RN - Fully Assessed Reason for Visit: PAC [...] guidelines link (more content not included)... Normal [facility] Molly 04-14-2025 CNPN Telephone (FAMPWS) -------- CAL MITCHELL ([id number]) 1945 M Date Time Provider Department 04/14/25 [...] Fully Assessed Reason for Visit: Patient Question [1477] Prescriptions as of 04/14/2025 - warfarin (COUMADIN) [...] stenosis of unspecified carotid a*10/25/2013 03/26/2024 Frequency [CGV4627] 02/11/2016 03/26/2024 BPH (benign prostatic hypertrophy) with [...] Hypertensive kidney disease with stage 3 chroni*01/29/2020 [facility] (current) use of anticoagulants [Z79.*02/04/2020 Dementia, vascular, [...] 05/03/2024 Bilateral (more content not included)... Normal [facility] Molly 03-28-2025 KOURTNEYN Telephone (FAMPWS) -------- CAL MITCHELL ([id number]) 1945 M Date Time Provider Department 03/28/25 GUANAKITO RENO During your visit today, we recorded the following information about you: Niels Rodriges, BENJIE 03/28/2025 1:06 PM Signed Faxed recent ov notes to [facility] per daughter, January request. . January reports she talked to [facility] about patient going to live there and [facility] instructed her to have pcp office send an H AND P to them for review. 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 [Z79.*02/04/2020 Dementia, vascular, [...] Encounter Status:Closed by Niels RODRIGES on 03/28/25 [facility] -------- CAL MITCHELL ([id number]) 1945 M Date Time Provider Department 03/24/25 ALEJANDRO MOLINA During your visit today, we recorded the following information about you: Alejandro Molina RPh 03/24/2025 10:57 AM Signed [facility]ticoagulation Clinic Anticoagulation Episode Summary Anticoagulation Care Providers Provider Role Specialty Phone number Guanakito Reno MD [facility] [phone] Cal Mitchell is a 79 year old [...] instructed to call Pharmaceutical Anticoagulation Clinic at [phone] with any questions or concerns. Alejandro Molina RPh Clinical Pharmacist, Pharmacy Anticoagulation Clinic Pharmacy Anticoagulation Clinic Pager: [phone] Alejandro Molina RPh 04/07/2025 3:31 PM Signed Patient was due [...] an injectable anticoagulant - No [facility] 04/14/2025 11:38 AM Signed Cal Mitchell was called and reminded to test INR today or as soon as possible. Twin Cole bobbi Allergies As of Date: 03/24/2025 (No Known [...] diabetes mellitu (more content not included)... Normal [facility] Inital Evaluation (1) - PTon 03-24-2025 Inital Evaluation (1) - PT [facility] Physical [facility] [address] [place] [address] [address] [place] [address] / REHABILITATION SERVICES INITIAL EVALUATION MR#: [id number] Acct: [id number] Name: CAL MITCHELL Rep #: [id number] : 1945 79 From: Rosa Gates DPT Referring Dr.: Dr. Josafat García MD Status: R EG [facility] Insurance: [facility] [id number] SELF PAY INSURANCE Patient's Visit Information Visit [...] PROM due to guarding. Strength: Scap: poor, quality associate: fair, no other motions tested due to [...] to be FAXED BACK to us at [phone] for Medicare purposes. For Medicare only, by signing this I certify the plan of care. Please let me know if there are questions or concerns regarding this plan of care. Physician Signature: Date: ____ 03/24/25 1256 CC: Dr. Josafat García MD; Dr. Guanakito Reno MD E (more content not included)... Normal [facility] Orthopedic Visit Reporton Orthopedic Visit Report [facility] [address] [place] [address] OFFICE VISIT Date of Service: 03/07/25 MR#: [id number] Acct: [id number] Name: CAL MITCHELL Rep #: [id number] : 1945 Provider: Dr. Josafat murcia MD Age/Sex: 79/M Location: [facility] Status: Signed Intake Vital Signs 03/06/25 16:19 [...] n 5-325mg 1 tab PO 4X/DAY PRN 03/07/25/01/07 History 5mg-325mg lisinopril 10 mg tablet 10 [...] by me, Dr. Josafat García MD 03/07/25 0901. Part of today???s visit was documented by [ ], acting as scribe. CAL MITCHELL is a 79 year old M here today for R proximal humerus fracture. Patient fell 2 days ago. He lives at home. He is here today with his son and kgoqrdex-tw-oce. Usually ambulates with a walker or a cane. Had a fall. Was mainly complaining about pain to the upper extremity was seen in a peripheral hospital referred here given a sling they found approximately wrist fracture on the right side. The patient does not speak very much but he converses overall well he is bsbtl-lume-zvijrays fairly stoic. Supplemental Info Proximal humerus fracture [...] a r (more content not included)... Normal [facility] CNOVon 03-06-2025 CN Office Visit (FAMPWS ) -------- CAL MITCHELL ([id number]) 1945 M Date Time Provider Department 03/06/25 3:20 PM CAROLINA LANDEROS [facility] During your visit today, we recorded the following information about you: Pulse Blood pressure 68/minute 124/58 Carolina Landeros APRN.[facility] 03/06/2025 4:30 PM Signed This is a [...] and 9-10/10 with movement. - Currently taking [place] for pain management. - Denies pain elsewhere [...] 250.00. Insulin: No Lancets (ONE TOUCH DELICA) [facility] lancets Test blood sugar(s) one time daily. [...] SYSTEMS Mu (more content not included)... Normal [facility] ED NOTEon 03-06-2025 ED NOTE HNO ID: [id number] Author: JACK HOLCOMB RN Service: ? Author Type: Registered Nurse Type: ED Notes Filed: 03/06/2025 00:19 Note Text: Provided meds. Placed in sling. Assisted to bathroom and back Normal [facility] ED PROV NOTEon 03-06-2025 ED PROV NOTE HNO ID: [id number] Author: KEDAR HERNANDEZ MD Service: Emergency Medicine [...] (more content not included)... Normal [facility] CT BRAIN WO IVCONon 03-05-[address] BRAIN WO IVCON * * *Final Report* * * DATE OF EXAM: Mar 05 2025 11:55PM [facility] 0504 - CT BRAIN WO [...] wall calcifications, including in the left-sided carotid. [facility] (topogram) images: Known (in correlation to earlier [...] vertebrae with counting from the craniocervical junction. Air Brake Tester: MAC Transcribe Date/Time: Mar 06 2025 12:48A Dictated by : CAMELIA GROVES MD This examination was interpreted and the report reviewed and electronically signed by: CAMELIA GROVES MD on Mar 06 2025 1:08AM EST [id number] Normal [facility] CT CERVICAL SPINE WO IVCONon 03-05-2025 CT CERVICAL SPINE WO IVCON * * *Final Report* * * DATE OF EXAM: Mar 05 2025 11:55PM [facility] 0505 - CT CERVICAL SPINE [...] wall calcifications, including in the left-sided carotid. [facility] (topogram) images: Known (in correlation to earlier [...] vertebrae with counting from the craniocervical junction. Air Brake Tester: PSCAmirah Transcribe Date/Time: Mar 06 2025 12:48A Dictated by : CAMELIA GROVES MD This examination was interpreted and the report reviewed and electronically signed by: CAMELIA GROVES MD on Mar 06 2025 1:08AM EST [id number] Normal [facility] ED NOTEon 03-05-2025 ED NOTE HNO ID: [id number] Author: JACK HOLCOMB RN Service: ? Author Type: Registered Nurse Type: ED Notes Filed: 03/05/2025 23:05 Note Text: Assisted to bathroom and back Normal [facility] ED NOTE HNO ID: [id number] Author: JACK HOLCOMB RN Service: ? Author Type: Registered Nurse Type: ED Notes Filed: 03/05/2025 22:10 Note Text: Pt c/o fall with right shoulder injury when wheel chair turned over. Denies neck and head injury. [place], warm, dry. No apparent distress. Alert and oriented. Normal [facility] XR HUMERUS 2V AP/LAT RTon XR [...] separation. No dislocation of the glenohumeral joint. Air Brake Tester: MAC Transcribe Date/Time: Mar 06 2025 12:37A Dictated by : LINNEA DIAS MD This examination was interpreted and the report reviewed and electronically signed by: LINNEA DIAS MD on Mar 06 2025 12:40AM EST [id number] Normal [facility] XR SHLDR >/=3V AP/JR AP/OTH R [...] separation. No dislocation of the glenohumeral joint. Air Brake Tester: MAC Transcribe Date/Time: Mar 06 2025 12:37A Dictated by : LINNEA DIAS MD This examination was interpreted and the report reviewed and electronically signed by: LINNEA DIAS MD on Mar 06 2025 12:40AM EST [id number] Normal [facility] CNPNon 02-20-2025 CNPN Telephone (PHAMTE) -------- PAULACAL ([id number]) 1945 M Date Time Provider Department 02/20/25 JIMMY CARRIZALES PHAKAROLYN During your visit today, we recorded the following information about you: [facility] 02/20/2025 9:00 AM Signed [facility] Ambulatory Pharmacy Anticoagulation Clinic Anticoagulation Episode Summary Anticoagulation Care Providers Provider Role Specialty Phone number Guanakito Reno MD [facility] Medicine [phone] Cal Lua Paula is a 79 year [...] 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 Jimmy Carrizales [facility] Clinical Pharmacist, Pharmacy Anticoagulation Clinic Pharmacy Anticoagulation Clinic Pager: [phone]. Twin Cole RPh 03/06/2025 12:38 PM Signed Patient was due [...] an injectable anticoagulant - No Stuart Hayes Megan R, [facility] 03/13/2025 7:40 AM Signed Cal Mitchell was sent [employer] message and reminded to test INR today or as soon as possible. Jimmy Carrizales [facility] Ulysses Alejandro, [facility] 03/20/2025 3:45 PM Signed No INR has been received or is in process at this time, will add to discharge list and start the discharge process at this time. Alejandro Molina [facility] Daniel (Magnetic Tape Composer Operator)Ashley 03/24/2025 10:52 AM Signed No return call from patient. Letter sent. FINAL ATTEMPT letter sent at this time. If no response from patient within 3 weeks of letter being sent, patient will be discharged from PAC at that time. Will also route to referring MD as FYI and to see if office can assist in reaching patient. 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 Normal 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 Normal [facility] CBC W Auto Differential pane l (Bld)on 01-21-2025 Basophils (Bld) [#/Vol] 0.07 10*3/uL Normal <0.11 [facility] Comment on above: Order Comment: Speci men Type: BLOOD SPECIMENOrdering Facility: [facility] Address: [address] [place] [address] Performed By: #### 5 7021-8 ####[facility] LABCLIA [id number] [place] [address] [place] Basophils/100 WBC (Bld) 0.9 % Normal C [facility] Comment on above: Order Comment: Speci men Type: BLOOD SPECIMENOrdering Facility: [facility] Address: [address] [place] [address] Performed By: #### 5 7021-8 ####[facility] LABCLIA [id number] [place] [address] [place] Differential cell count method Nom (Bld) Auto Normal [facility] Comment on above: Order Comment: Speci men Type: BLOOD SPECIMENOrdering Facility: [facility] Address: [address] [place] [address] Performed By: #### 5 7021-8 ####[facility] LABCLIA [id number] [place] [address] [place] Eosinophils (Bld) [#/Vol] 0.25 10*3/uL Normal <0.46 [facility] Comment on above: Order Comment: Speci men Type: BLOOD SPECIMENOrdering Facility: [facility] Address: [address] [place] [address] Performed By: #### 5 7021-8 ####[facility] LABCLIA [id number] [place] [address] [place] Eosinophils/100 WBC (Bld) 3.3 % Normal [facility] Comment on above: Order Comment: Speci men Type: BLOOD SPECIMENOrdering Facility: [facility] Address: [address] [place] [address] Performed By: #### 5 7021-8 ####[facility] LABCLIA [id number] [place] [address] [place] Erythrocyte distribution width (RBC) [Ratio] 14.8 % Normal 11.5-15.0 [facility] Comment on above: Order Comment: Speci men Type: BLOOD SPECIMENOrdering Facility: [facility] Address: [address] [place] [address] Performed By: #### 5 7021-8 ####[facility] LABCLIA [id number] [place] [address] [place] Hematocrit (Bld) [Volume fraction] 41.2 % Normal 39.0-51.0 [facility] Comment on above: Order Comment: Speci men Type: BLOOD SPECIMENOrdering Facility: [facility] Address: [address] [place] [address] Performed By: #### 5 7021-8 ####[facility] LABCLIA [id number] [place] [address] [place] Hemoglobin (Bld) [Mass/Vol] 12.5 g/dL Low 13.0-17.0 [facility] Comment on above: Order Comment: Speci men Type: BLOOD SPECIMENOrdering Facility: [facility] Address: [address] [place] [address] Performed By: #### 5 7021-8 ####[facility] LABCLIA [id number] [place] [address] [place] Immature granulocytes (Bld) [#/Vol] 10*3/uL Normal <0.10 [facility] Comment on above: Order Comment: Speci men Type: BLOOD SPECIMENOrdering Facility: [facility] Address: [address] [place] [address] Performed By: #### 5 7021-8 ####[facility] LABCLIA [id number] [place] [address] [place] Immature granulocytes/100 WBC (Bld) 0.3 % Normal [facility] Comment on above: Order Comment: Speci men Type: BLOOD SPECIMENOrdering Facility: [facility] Address: [address] [place] [address] Performed By: #### 5 7021-8 ####[facility] LABCLIA [id number] [place] [address] [place] Lymphocytes (Bld) [#/Vol] 1.28 10*3/uL Normal 1.00-4.00 [facility] Comment on above: Order Comment: Speci men Type: BLOOD SPECIMENOrdering Facility: [facility] Address: [address] [place] [address] Performed By: #### 5 7021-8 ####[facility] LABCLIA [id number] [place] [address] [place] Lymphocytes/100 WBC (Bld) 17.1 % Normal [facility] Comment on above: Order Comment: Speci men Type: BLOOD SPECIMENOrdering Facility: [facility] Address: [address] [place] [address] Performed By: #### 5 7021-8 ####[facility] LABIA [id number] [place] [address] [place] MCH (RBC) [Entitic mass] 29.3 pg Normal 26.0-34.0 [facility] Comment on above: Order Comment: Speci men Type: BLOOD SPECIMENOrdering Facility: [facility] Address: [address] [place] [address] Performed By: #### 5 7021-8 ####[facility] LABIA [id number] [place] [address] [place] MCHC (RBC) [Mass/Vol] 30.3 g/dL Low 30.5-36.0 [facility] Comment on above: Order Comment: Speci men Type: BLOOD SPECIMENOrdering Facility: [facility] Address: [address] [place] [address] Performed By: #### 5 7021-8 ####[facility] LABIA [id number] [place] [id number] [place] MCV (RBC) [Entitic vol] 96.7 fL Normal 80.0-100.0 C [facility] Comment on above: Order Comment: Speci men Type: BLOOD SPECIMENOrdering Facility: [facility] Address: [address] [place] [address] Performed By: #### 5 7021-8 ####[facility] LABCLIA [id number] [place] [address] [place] Monocytes (Bld) [#/Vol] 0.61 10*3/uL Normal <0.87 [facility] Comment on above: Order Comment: Speci men Type: BLOOD SPECIMENOrdering Facility: [facility] Address: [address] [place] [address] Performed By: #### 5 7021-8 ####[facility] LABCLIA [id number] [place] [address] [place] Monocytes/100 WBC (Bld) 8.2 % Normal [facility] Comment on above: Order Comment: Speci men Type: BLOOD SPECIMENOrdering Facility: [facility] Address: [address] [place] [address] Performed By: #### 5 7021-8 ####[facility] LABCLIA [id number] [place] [address] [place] Neutrophils (Bld) [#/Vol] 5.25 10*3/uL Normal 1.45-7.50 [facility] Comment on above: Order Comment: Speci men Type: BLOOD SPECIMENOrdering Facility: [facility] Address: [address] [place] [address] Performed By: #### 5 7021-8 ####[facility] LABCLIA [id number] [place] [address] [place] Neutrophils/100 WBC (Bld) 70.2 % Normal [facility] Comment on above: Order Comment: Speci men Type: BLOOD SPECIMENOrdering Facility: [facility] Address: [address] [place] [address] Performed By: #### 5 7021-8 ####[facility] LABCLIA [id number] [place] [address] [place] Nucleated RBC (Bld) [#/Vol] 10*3/uL Normal <0.01 [facility] Comment on above: Order Comment: Speci men Type: BLOOD SPECIMENOrdering Facility: [facility] Address: [address] [place] [address] Performed By: #### 5 7021-8 ####[facility] LABIA [id number] [place] [address] [place] Nucleated RBC/100 WBC (Bld) [Ratio] 0.0 /100 WBC Normal [facility] Comment on above: Order Comment: Speci men Type: BLOOD SPECIMENOrdering Facility: [facility] Address: [address] [place] [address] Performed By: #### 5 7021-8 ####[facility] LABIA [id number] [place] [address] [place] Platelet mean volume (Bld) [Entitic vol] 10.3 fL Normal 9.0-12.7 [facility] Comment on above: Order Comment: Speci men Type: BLOOD SPECIMENOrdering Facility: [facility] Address: [address] [place] [address] Performed By: #### 5 7021-8 ####[facility] LABIA [id number] [place] [address] [place] Platelets (Bld) [#/Vol] 198 10*3/uL Normal 150-400 [facility] Comment on above: Order Comment: Speci men Type: BLOOD SPECIMENOrdering Facility: [facility] Address: [address] [place] [address] Performed By: #### 5 7021-8 ####[facility] LABIA [id number] [place] [address] [place] RBC (Bld) [#/Vol] 4.26 10*6/uL Normal 4.20-6.00 [facility] Comment on above: Order Comment: Speci men Type: BLOOD SPECIMENOrdering Facility: [facility] Address: [address] [place] [address] Performed By: #### 5 7021-8 ####[facility] LABCLIA [id number] [address] [address] [place] WBC (Bld) [#/Vol] 7.48 10*3/uL Normal 3.70-11.00 [facility] Comment on above: Order Comment: Speci men Type: BLOOD SPECIMENOrdering Facility: [facility] Address: [address] [id number] Performed By: #### 5 7021-8 ####[facility] LABCLIA [id number] [address] [address] [facility] [place] CNOVon 01-21-2025 CNOV Office Visit (FAMPWS ) -------- CAL MITCHELL ([id number]) 1945 M Date Time Provider Department 01/21/25 3:40 PM [facility] During your visit today, we recorded the following information about you: Temperature Pulse Blood pressure Weight 97.6 degrees 59/minute 122/60 117 kg Carolina Landeros, TEXTILE CONSERVATOR.[facility] 01/21/2025 4:11 PM Signed This is a 79 year old male who presents today with: Patient presents with: 6 Month Exam HISTORY OF PRESENT ILLNESS: Cal iMtchell is a 79 year old male. Patient [...] taking lisinopril Monitors bp at home: Yes. [place] checks it, ok there Denies side effects: [...] 250.00. Insulin: No Lancets (ONE TOUCH DELICA) [facility] lancets Test blood sugar(s) one time daily. [...] (20.0 ttl (more content not included)... Normal [facility] Comprehensive metabolic 2000 panelon 01-21-2025 Albumin [Mass/Vol] 4.1 g/dL Normal 3.9-4.9 [facility] Comment on above: Order Comment: Speci men Type: BLOOD SPECIMENOrdering Facility: [facility] Address: [address] [place] [address] Performed By: #### L IPNF, 94105-0, 2132-9, 22699-0 ####[facility] LABCLIA [id number] [place] [address] [place] ALP [Catalytic activity/Vol] 153 U/L High 38-113 [facility] Comment on above: Order Comment: Speci men Type: BLOOD SPECIMENOrdering Facility: [facility] Address: [address] [place] [address] Performed By: #### L IPNF, , 2132-06, ####[facility] LABCLIA [id number] [place] [address] [place] ALT [Catalytic activity/Vol] 19 U/L Normal 10-54 [facility] Comment on above: Order Comment: Speci men Type: BLOOD SPECIMENOrdering Facility: [facility] Address: [address] [place] [address] Performed By: #### L IPNF, , 2132-06, ####[facility] LABCLIA [id number] [place] [address] [place] Anion gap [Moles/Vol] 15 mmol/L Normal 8-15 [facility] Comment on above: Order Comment: Speci men Type: BLOOD SPECIMENOrdering Facility: [facility] Address: [address] [place] [address] Performed By: #### L IPNF, , 2132-06, ####[facility] LABCLIA [id number] [place] [address] [place] AST [Catalytic activity/Vol] 23 U/L Normal 14-40 [facility] Comment on above: Order Comment: Speci men Type: BLOOD SPECIMENOrdering Facility: [facility] Address: [address] [place] [address] Performed By: #### L IPNF, , 2132-06, ####[facility] LABCLIA [id number] [place] [id number] [place] Bilirubin [Mass/Vol] 0.6 mg/dL Normal 0.2-1.3 [facility] Comment on above: Order Comment: Speci men Type: BLOOD SPECIMENOrdering Facility: [facility] Address: [address] [place] [address] Performed By: #### L IPNF, , 2132-06, ####[facility] LABCLIA [id number] [place] [address] [place] Calcium [Mass/Vol] 8.8 mg/dL Normal 8.5-10.2 [facility] Comment on above: Order Comment: Speci men Type: BLOOD SPECIMENOrdering Facility: [facility] Address: [address] [place] [address] Performed By: #### L IPNF, , 2132-06, ####[facility] LABCLIA [id number] [place] [address] [place] Chloride [Moles/Vol] 106 mmol/L Normal 98-107 [facility] Comment on above: Order Comment: Speci men Type: BLOOD SPECIMENOrdering Facility: [facility] Address: [address] [place] [address] Performed By: #### L IPNF, , 2132-06, ####[facility] LABCLIA [id number] [place] [address] [place] CO2 [Moles/Vol] 21 mmol/L Low 22-30 [facility] Comment on above: Order Comment: Speci men Type: BLOOD SPECIMENOrdering Facility: [facility] Address: [address] [place] [address] Performed By: #### L IPNF, , 2132-06, ####[facility] LABCLIA [id number] [place] [id number] [place] Creatinine [Mass/Vol] 2.34 mg/dL High 0.73-1.22 [facility] Comment on above: Order Comment: Marcelle shultz Type: BLOOD SPECIMENOrdering Facility: [facility] Address: [address] [place] [address] Performed By: #### L IPNF, , 2132-06, ####[facility] [facility] LABCL[facility] [id number] [place] [address] [place] Creatinine and Glomerular filtration rate.predicted panel (S/P/Bld) 27 mL/min/1.73m??? Low >=60 [facility] Comment on above: Order Comment: Marcelle shultz Type: BLOOD SPECIMENOrdering Facility: [facility] Address: [address] [place] [address] Result Comment: Lina mated Glomerular Filtration Rate [...] Performed By: #### L IPNF, , 2132-06, ####[facility] LABCLIA [id number] [address] [address] [place] Glucose [Mass/Vol] 122 mg/dL High 74-99 [facility] Comment on above: Order Comment: Marcelle shultz Type: BLOOD SPECIMENOrdering Facility: [facility] Address: [address] [place] [address] Result Comment: The [place] Diabetes Association (ADA) provides guidance for cutoff [...] Standards of Medical Care in Diabetes 2016, [place] Diabetes Association. Diabetes Care. 2016.39(Suppl 1). Performed By: #### L IPNF, , 2132-06, ####[facility] LABCLIA [id number] [address] [address] [place] Potassium [Moles/Vol] 4.3 mmol/L Normal 3.7-5.1 [facility] Comment on above: Order Comment: Speci men Type: BLOOD SPECIMENOrdering Facility: [facility] Address: [address] [place] [address] Performed By: #### L IPNF, , 2132-06, ####[facility] LABCLIA [id number] [place] [id number] [place] Protein [Mass/Vol] 7.2 g/dL Normal 6.3-8.0 [facility] Comment on above: Order Comment: Speci men Type: BLOOD SPECIMENOrdering Facility: [facility] Address: [address] [place] [address] Performed By: #### L IPNF, , 2132-06, ####[facility] LABCLIA [id number] [place] [id number] [place] Sodium [Moles/Vol] 142 mmol/L Normal 136-144 [facility] Comment on above: Order Comment: Speci men Type: BLOOD SPECIMENOrdering Facility: [facility] Address: [address] [place] [address] Performed By: #### L IPNF, , 2132-06, ####[facility] LABCLIA [id number] [address] [address] [place] Urea nitrogen [Mass/Vol] 29 mg/dL High 9-24 [facility] Comment on above: Order Comment: Marcelle lexii Type: BLOOD SPECIMENOrdering Facility: [facility] Address: [address] [place] [address] Performed By: #### L IPNF, 35253-3, 2132-9, 80871-7 ####[facility] LABCLIA [id number] [address] [place] HbA1c (Bld)on 01-21-2025 Average glucose Estimated from glycated hemoglobin (Bld) [Mass/Vol] 146 mg/dL Normal [facility] Comment on above: Order Comment: [facility] Type: BLOOD SPECIMENOrdering Facility: [facility] Address: [address] [place] [address] Result Comment: eAG: (Estimated average glucose) is a calculated value from HgbA1c and is group sales representative of the average blood glucose level in the last 2-3 month period. Performed By: #### 5 5454-3 ####[facility] LABIA [id number] [place] [id number] [place] HbA1c (Bld) [Mass fraction] 6.7 % High 4.3-5.6 [facility] Comment on above: Order Comment: Marcelle shultz Type: BLOOD SPECIMENOrdering Facility: [facility] Address: [address] [place] [address] Result Comment: Amer ican Diabetes Association guidelines indicate that patients with HgbA1c in the range 5.7-6.4% are at increased risk for development of diabetes, and intervention by lifestyle modification may be beneficial. HgbA1c greater or equal to 6.5% is considered diagnostic of diabetes. Performed By: #### 5 5454-3 ####[facility] LABIA [id number] [place] [id number] [place] LIPID PANEL, NONFASTINGon Cholesterol [Mass/Vol] 164 mg/dL Normal <200 [facility] Comment on above: Order Comment: Marcelle lexii Type: BLOOD SPECIMENOrdering Facility: [facility] Address: [address] [place] [address] Result Comment: <200 mg/dL, Desirable 200-239 mg/dL, Borderline high >239 mg/dL, High Performed By: #### L IPNF, , 2132-06, ####[facility] LABCLIA [id number] [facility] [id number] [address] [place] HDL CHOLESTEROL, NF 42 mg/dL Normal >39 [facility] Comment on above: Order Comment: Speci men Type: BLOOD SPECIMENOrdering Facility: [facility] Address: [address] [place] [address] Result Comment: 40-5 9 mg/dL, Acceptable >59 mg/dL, High: Negative risk factor for coronary heart disease <40 mg/dL, Low: Positive risk factor for coronary heart disease Performed By: #### L IPNF, , 2132-06, ####[facility] LABCLIA [id number] [address], [facility]95 [place] LDL CHOLESTEROL, NF 96 mg/dL Normal <100 [facility] Comment on above: Order Comment: Speci men Type: BLOOD SPECIMENOrdering Facility: [facility] Address: [address] [place] [address] Result Comment: <100 mg/dL, Optimal 100-129 mg/dL, Near optimal/above optimal 130-159 mg/dL, Borderline high 160-189 mg/dL, High >189 mg/dL, Very high Secondary prevention optimal LDL Cholesterol levels are recommended to be < 70 mg/dL Performed By: #### L IPNF, , 2132-06, ####[facility] LABCLIA [id number] [address] [place] [address] [place] LDL/HDL RATIO, NF 2.29 mg/dL Normal <2.54 [facility] Comment on above: Order Comment: Speci men Type: BLOOD SPECIMENOrdering Facility: [facility] Address: [address] [place] [address] Result Comment: Scot soto: 1. National Cholesterol Education Program ATP III Guideline At-A-Glance Quick Desk Reference: National Heart, Lung, and Blood [place]. National Institutes of Health. 2001: NIH Publication No. 01-3305. 2. An International Atherosclerosis Society position paper: global recommendations for the management of dyslipidemia: executive summary, Atherosclerosis. 2014: 232(2):410-413. Performed By: #### L IPNF, , 2132-06, ####[facility] LABCLIA [id number] [address] [address] [place] NON HDL CHOL, NF 122 mg/dL Normal <130 [facility] Comment on above: Order Comment: Speci men Type: BLOOD SPECIMENOrdering Facility: [facility] Address: [address] [place] [address] Result Comment: <130 mg/dL, Optimal 130-159 mg/dL, Near optimal/above optimal 160-189 mg/dL, Borderline high 190-219 mg/dL, High >219 mg/dL, Very high Secondary prevention optimal non HDL Cholesterol levels are recommended to be <100 mg/dL Performed By: #### L IPNF, , 2132-06, ####[facility] LABCLIA [id number] [place] [address] [place] T CHOL/HDL RATIO NF 3.90 mg/dL Normal <5.10 [facility] Comment on above: Order Comment: Speci men Type: BLOOD SPECIMENOrdering Facility: [facility] Address: [address] [place] [address] Performed By: #### L IPNF, , 2132-06, ####[facility] LABCLIA [id number] [place] [id number] [place] TRIGLYCERIDES, NF 129 mg/dL Normal <150 [facility] Comment on above: Order Comment: Speci men Type: BLOOD SPECIMENOrdering Facility: [facility] Address: [address] [place] [address] Result Comment: <150 mg/dL, Normal 150-199 mg/dL, Borderline high 200-499 mg/dL, High >499 mg/dL, Very high Performed By: #### L IPNF, , 2132-06, ####[facility] LABCLIA [id number] [place] [address] [place] VLDL CHOLESTEROL, NF 26 mg/dL Normal <30 [facility] Comment on above: Order Comment: Speci men Type: BLOOD SPECIMENOrdering Facility: [facility] Address: [address] [place] [address] Performed By: #### L IPNF, , 2132-06, ####[facility] LABCLIA [id number] [place] [address] [place] [facility] Magnesium [Mass/Vol] 2.3 mg/dL Normal 1.7-2.3 [facility] Comment on above: Order Comment: Speci men Type: BLOOD SPECIMENOrdering Facility: [facility] Address: [address] [place] [address] Performed By: #### L IPNF, , 2132-06, ####[facility] LABCLIA [id number] [place] [address] [place] Vit B12 SerPl-mCncon 025 Cobalamin (Vitamin B12) [Mass/Vol] 385 pg/mL Normal 232-1245 [facility] Comment on above: Order Comment: Speci men Type: BLOOD SPECIMENOrdering Facility: [facility] Address: [address] [place] [address] Performed By: #### L IPNF, , 2132-06, ####[facility] LABCLIA [id number] [place] [id number] [place] Molly 01-08-2025 CNPN Telephone (PHAMTE) -------- CAL MITCHELL ([id number]) 1945 M Date Time Provider Department 01/08/25 RUTHIE CUEVAS PHAMTE During your visit today, we recorded the following information about you: Ruthie Cuevas bobbi 01/08/2025 9:14 AM Signed [facility] Anticoagulation Episode Summary Anticoagulation Care Providers Provider Role Specialty Phone number Guanakito Reno MD [facility] [phone] Cal Mitchell is a 79 year old [...] 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 Ruthie Cuevas RP Clinical Pharmacist, Pharmacy Anticoagulation Clinic [facility] Pager: [phone]. Ruthie Cuevas RPh 01/29/2025 11:08 AM Addendum Cal Mitchell was called and reminded to test INR today or as soon as possible. LVMX for January. 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 lancets Test blood sugar(s) one time daily. Dx: 250.00. Insulin: No Problem List As Of Date 01/08/2025 (more content not included)... Normal [facility] Molly 12-30-2024 LUCIO Telephone (BRIAN) -------- CAL MITCHELL ([id number]) 1945 M Date Time Provider Department 12/30/24 [place] During your visit today, we recorded the following information about you: Twin ColeDEMETRICE 12/30/2024 9:14 AM Signed [facility] Anticoagulation Episode Summary Anticoagulation Care Providers Provider Role Specialty Phone number Guanakito Reno MD [facility] [phone] Cal Mitchell is a 79 year old [...] missed any doses of warfarin. Twin Cole [facility] Clinical Pharmacist, Pharmacy Anticoagulation Clinic Pharmacy [facility] Pager: [phone]. Octavio (Magnetic Tape Composer Operator)Ruben 12/30/2024 9:15 AM Signed Roscoe'larry called regarding INR result for patient. Result has been addressed below, no further action needed. Ruben Cunningham, Feed Mill Lab Technician (mds rn) Pharmacy Anticoagulation Clinic Jimmy Carrizales [facility] 01/07/2025 12:02 PM Signed Cal Mitchell was called, lvmx and reminded to test INR today or as soon as possible given that we left a VM last week also. Jimmy Carrizales [facility] Allergies As of Date: 12/30/2024 (No Known [...] hours as needed. - blood sugar diagnostic (Georgina GoodmanTOUCH ULTRA TEST) test strip Test blood sugar(s) one times daily. Dx: 250.00. Insulin: No - Lancets (ONE TOUCH DELICA) [facility] lancets Test blood sugar(s (more content not included)... Normal [facility] 12-11-2024 [facility] Telephone (MIGUELMTE) -------- PAULA,CAL Lua ([id number]) 1945 M Date Time Provider Department 12/11/24 JIMMY CARRIZALES During your visit today, we recorded the following information about you: Jimmy Carrizales [facility] 12/11/2024 9:51 AM Signed [facility] Anticoagulation Episode Summary Anticoagulation Care Providers Provider Role Specialty Phone number Guanakito Reno MD [facility] [phone] Cal Chanell Mitchell is a 79 year old year [...] 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 Jimmy Carrizales [facility] Clinical Pharmacist, Pharmacy Anticoagulation Clinic Pharmacy Anticoagulation Clinic Pager: [phone]. 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 Normal [facility] CNPNon 11-26-2024 CNPN Telephone (PHAMTE) -------- CAL MITCHELL ([id number]) 1945 M Date Time Provider Department 11/26/24 [place] During your visit today, we recorded the following information about you: Twin Cole [facility] 11/26/2024 5:29 PM Signed [facility] Anticoagulation Episode Summary Anticoagulation Care Providers Provider Role Specialty Phone number Guanakito Reno MD [facility] [phone] Cal Mitchell is a 79 year old [...] Pharmacy Anticoagulation Clinic Pharmacy Anticoagulation Clinic Pager: [phone]. Yamilka Heath RN 11/27/2024 8:43 AM Signed [...] Insulin: No - Lancets (ONE TOUCH DELICA) [facility] lancets Test blood sugar(s) one time daily. Dx: 250.00. Insulin: No Problem Lis (more content not included)... Normal [facility] Molly 10-28-2024 LUCIO Telephone ([facility]) -------- CAL MITCHELL ([id number]) 1945 M Date Time Provider Department 10/28/24 ALEJANDRO MOLINA During your visit today, we recorded the following information about you: Alejandro Molina RPh 10/28/2024 5:07 PM Signed [facility] Anticoagulation Episode Summary Anticoagulation Care Providers Provider Role Specialty Phone number Guanakito Reno MD [facility] [phone] Cal Mitchell is a 79 year old [...] instructed to call [facility] at [phone] with any questions or concerns. Alejandro Molina RPh Clinical Pharmacist, Pharmacy Anticoagulation Clinic Pharmacy Anticoagulation Clinic Pager: [phone] Alejandro Molina RPh 11/11/2024 4:42 PM Signed Patient was due to test INR today. Will continue to monitor for results. Will follow up in one week if no results received. Alejandro Molina [facility] 11/18/2024 4:27 PM Signed Cal Mitchell was called and reminded to test INR today or as soon as possible. Alejandro Ulysses [facility] 11/25/2024 2:53 PM Signed Added to discharge list Daniel (Magnetic Tape Composer Operator)Ashley 11/26/2024 2:43 PM Signed DISCHARGE No return call from patient. Letter sent. FINAL ATTEMPT letter sent at this time. If no response from patient within 4 weeks, patient will be discharged from PAC at that time. Will also route to referring MD as FYI and to see if office can assist in reaching patient. Ashley Sanchez CPhT ([employer] Mill Lab Technician) Pharmacy Anticoagulation Clinic Guanakito Reno MD 11/26/2024 [...] understand things anymore. 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 CHANCE Ramirez (Magnetic Tape Composer Operator)Ashley 11/26/2024 5:07 PM Signed PATIENT CALL Patient called call center regarding testing. Patient's daughter called and stated they just got a call from MD that stated patient was past due for [...] received. PAC will await results. Ashley Sanchez ([facility] (more content not included)... [facility] -------- CAL MITCHELL ([id number]) 1945 M Date Time Provider Department 10/21/24 GUANAKITO RENO [facility] During your visit today, we recorded the following information about you: Ashley De Dios, RN 10/21/2024 1:29 PM Signed Pts son [...] RN 10/21/2024 2:59 PM Signed Pt ALEC Tafoyaw called and is notified of providers message. He voices understanding. Ashley De Dios RN Allergies As of Date: 10/21/2024 (No Known Allergies) Date Reviewed: 08/06/2024 Reviewed by: Bi Cantu LPN - Fully Assessed Reason for Visit: Patient Update [1234] Patient Question [9877] Prescriptions as of 10/21/2024 - atorvastatin (LIPITOR) [...] hours as needed. - blood sugar diagnostic (Georgina GoodmanTOUCH ULTRA TEST) test strip Test blood sugar(s) one times daily. Dx: 250.00. Insulin: No - Lancets (ONE TOUCH DELICA) [facility] lancets Test blood sugar(s) one time daily. [...] stenosis of unspecified carotid a*10/25/2013 03/26/2024 Frequency [[id number]] 02/11/2016 03/26/2024 BPH (benign prostatic hypertrophy) with urinary*02/11/2016 Adhesive capsulitis of right shoulder [M75.01] 05/15/2018 Aortic stenosis [I35.0] 05/24/2018 CKD (chronic kidney disease) stage 3, GFR 30-59*05/24/2018 03/26/2024 Lung (more content not included)... Normal [facility] CNPNon 10-01-2024 CNPN Telephone (PHAMTE) -------- CAL MITCHELL ([id number]) 1945 M Date Time Provider Department 10/01/24 [place] During your visit today, we recorded the following information about you: Twin Cole [facility] 10/01/2024 9:42 AM Signed [facility] Anticoagulation Episode Summary Anticoagulation Care Providers Provider Role Specialty Phone number Guanakito Reno MD [facility] [phone] Cal Hageroll is a 79 year old [...] Pharmacy Anticoagulation Clinic Pharmacy Anticoagulation Clinic Pager: [phone]. Twin Cole RPh 10/15/2024 12:10 PM Signed [...] tablet Dissolve (more content not included)... Normal [facility] CNPNon 08-26-2024 CNPN Telephone (PHAMTE) -------- CAL MITCHELL ([id number]) 1945 M Date Time Provider Department 08/26/24 ALEJANDRO MOLINA During your visit today, we recorded the following information about you: Alejandro Molina RPh 08/26/2024 6:35 AM Signed [facility] Anticoagulation Episode Summary Anticoagulation Care Providers Provider Role Specialty Phone number Guanakito Reno MD [facility] [phone] Cal Mitchell is a 79 year old [...] warfarin instructions: 5 mg every day Sent [employer] message Advised patient to continue current weekly dose as noted above Next INR check due on 09/09/2024 Alejandro Molina [facility] Clinical Pharmacist, Pharmacy Anticoagulation Clinic Pharmacy Anticoagulation Clinic Pager: [phone]. Alejandro Molina bobbi 09/09/2024 4:38 PM Signed Patient was due to test INR today. Will continue to monitor for results. Will follow up in one week if no results received. Alejandro Molina bobbi 09/23/2024 2:35 PM Signed Cal Mitchell was called and reminded to test INR today or as soon as possible. Alejandro Molina [facility] 09/30/2024 12:31 PM Signed Added to discharge [...] Insulin: No - Lancets (ONE TOUCH DELICA) [facility] lancets Test blood sugar(s) one time daily. Dx: 250.00. Insulin: No Problem List As Of Date 08/26/2024 Noted Resolved Hyperlipidemia, mixed [E78.2] Essential hypertension [I10] Peripheral arterial disease (HCC) [I73.9] Other symptoms involving cardiovascular system * 07/20/2016 ACTINIC KERATOSIS [L57.0] 10/12/2005 IMPACTED CERUMEN [H61.20] (more content not included)... Normal [facility] Molly 08-16-2024 LUCIO Telephone ([facility]) -------- CAL MITCHELL ([id number]) 1945 M Date Time Provider Department 08/16/24 JIMMY PERIKNS During your visit today, we recorded the [...] MAYER on: 08/30/2024 01:50 PM Modules accepted: Valerie Cleary LPN 08/30/2024 2:01 PM Signed I spoke to Elly and informed them of Josselyn's response to [...] Insulin: No - Lancets (ONE TOUCH DELICA) [facility] lancets Test blood sugar(s) one time daily. 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 Normal [facility] Renal Profileon 08-07-2024 Albumin [Mass/Vol] 3.3 g/dL Normal 3.2-5.0 [facility] Comment on above: Performed By: #### L 657.9478 #### [facility] [address] [place], [address] BUN/CRE 14.3 RATIO Normal 10-20 [facility] Comment on above: Performed By: #### L 500.3600 #### [facility] [address] [place], [address] CA,Total 8.4 mg/dL Low 8.5-10.1 [facility] Comment on above: Performed By: #### L 500.3600 #### [facility] [address] [place], [address] Chloride [Moles/Vol] 114 mmol/L High 98-107 [facility] Comment on above: Performed By: #### L 500.3600 #### [facility] [address] [place], [address] CO2 [Moles/Vol] 25.0 mmol/L Normal 21.0-32.0 [facility] Comment on above: Performed By: #### L 500.3600 #### [facility] [address] [place], [address] Creatinine [Mass/Vol] 2.45 mg/dL High 0.70-1.30 [facility] Comment on above: Result Comment: The validity of the calculated GFR GFRAA in patients over 70 years has not been determined. Clinical correlation is essential. Performed By: #### L 500.3600 #### [facility] [address] [place], [address] EST GFR - AA 33 mL/min Low >60 [facility] Comment on above: Result Comment: Afri can Belgian GFR Calc Performed By: #### L 500.3600 #### [facility] [address] [place], [address] GFR/1.73 sq M.predicted among non-blacks MDRD (S/P/Bld) [Vol rate/Area] 27 mL/min/{1.73_m2} Low >60 [facility] Comment on above: Result Comment: Non- GFR Calc Performed By: #### L 500.3600 #### [facility] [address] [place], [address] Glucose [Mass/Vol] 111 mg/dL High 74-106 [facility] Comment on above: Result Comment: Fast ing Glucose result from 100 to 125 mg/dL suggests IMPAIRED HOMEOSTASIS per A.D.A. criteria. Performed By: #### L 500.3600 #### [facility] [address] [place], [address] Phosphate [Mass/Vol] 2.9 mg/dL Normal 2.5-4.9 [facility] Comment on above: Performed By: #### L 500.3600 #### [facility] [address] [place], [address] Potassium [Moles/Vol] 4.5 mmol/L Normal 3.5-5.1 [facility] Comment on above: Performed By: #### L 500.3600 #### [facility] [address] [place], [address] Sodium [Moles/Vol] 144 mmol/L Normal 136-145 [facility] Comment on above: Performed By: #### L 500.3600 #### [facility] [address] [place], [address] Urea nitrogen [Mass/Vol] 35 mg/dL High 7-18 [facility] Comment on above: Performed By: #### L 500.3600 #### [facility] [address] [place], [address] CNOVon 08-06-2024 CNOV Office Visit (ANNETTE DUDLEY) -------- CAL MITCHELL ([id number]) 1945 M Date Time Provider Department 08/06/24 1:00 PM LAURA IRAHETA During your visit today, we recorded the following information about you: Pulse Blood pressure Weight Height 61/minute 128/68 108.9 kg 1.778 m Laura Iraheta MD 08/06/2024 5:14 PM Signed [facility] [place] DEPARTMENT OF VASCULAR SURGERY OUTPATIENT VISIT DATE [...] included)... Normal [facility] 07-30-2024 LUCIO Telephone (AGCARDPOB ) -------- CAL MITCHELL ([id number]) 1945 M Date Time Provider Department 07/30/24 JOSSELYN MAYER During your visit today, we recorded the following information about you: Josselyn Mayer APRN.CNP 07/30/2024 10:44 AM Signed Attempted to contact patient and his family to update him on the treatment plan. Left voicemail requesting phone call back. QUIQUE Chapa Stacey, RN 07/31/2024 3:54 PM Signed Gustavo austin requesting a return call at [phone]. BENJIE Batres Nichole L, APRN.CNP 08/01/2024 9:58 AM Signed I spoke with Gustavo and communicated recommendations of medical therapy. He reports patient also expressed wanting to continue without any further intervention. Patient and family agreeable to plan. 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 lancets Test blood sugar(s) one time daily. [...] stenosis of unspecified carotid a*10/25/2013 03/26/2024 Frequency [[id number]] 02/11/2016 03/26/2024 BPH (benign prostatic hypertrophy) with [...] Hypertensive kidney disease with stage 3 chroni*01/29/2020 [facility]CI (current) use of anticoagulants [Z79.*02/04/2020 Dementia, vascular, mixed, with behavioral dist*08/26/2020 08/14/2023 Obesity, Class II, BMI 35-39.9 [E66.812] 08/15/2022 Aortic valve disorder [I35.9] 08/15/2022 Abnormal electrocardiography [R94.31] 08/14/2023 Diagnosed: 08/14/2023 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] 08/14/2023 Diagnosed: 08/14/2023 History of carotid endarterectomy [Z98.890] 04/17/2014 Diagnosed: 08/14/2023 Chronic renal disease, stage IV (H (more content not included)... Normal [facility] CNTRTMon 07-30-2024 CNTRTM Treatment Team (AGCARDPOB) -------- PAULACAL KRAUS ([id number]) 1945 M Date Time Provider Department 07/30/24 JOSSELYN MAYER During your visit today, we recorded the following information about you: Josselyn Mayer APRN.CNP 07/30/2024 10:47 AM Signed MULTI DISCIPLINARY HIGH RISK AVR CARDIAC TEAM Members present: Dr. Malcolm, Dr. Thacker, Dr. Norman, Dr. Escalera, Gian Boyd APRN, CNP, Frank Piña CNP, ALEJANDRA Ma., ALEJANDRA iRce, Niels Cardoza CNP, Tj Lambert CNP, Frank Mello ATHLETIC EVENTS SCORER Presenting Physician: see members listed above PATIENT [...] Known Allergies) Date Reviewed: 07/23/2024 Reviewed by: Tassone, Dorothy, RN - Fully Assessed Prescriptions as of [...] Insulin: No - Lancets (ONE TOUCH DELICA) [facility] lancets Test blood sugar(s) one time daily. 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 Normal [facility] CNPNon 07-25-2024 CNPN Telephone (PHAMTE) -------- CAL MITCHELL ([id number]) 1945 M Date Time Provider Department 07/25/24 JIMMY CARRIZALES [place] During your visit today, we recorded the following information about you: Jimmy Carrizales [facility] 07/25/2024 11:50 AM Signed Left voice message asking patient at [phone] (home) or daughter January to call the Anticoagulation Clinic at [phone] re: patient recenly off warfarin for heart cath on 07/23/24. Patient was prescribed Lovenox 100 mg sq Once daily by cardiology. Next Action for Anti coag Management: TM Remote Jimmy Carrizales PharmD., [facility]ic[facility] 07/26/2024 4:30 PM Signed Called and left voice message for daughter January asking her to return call to Pharmacy [facility]tico[facility] to discuss if Lovenox was started for patient. Josselyn Mayer, TEXTILE CONSERVATOR.Chely Cho, RNYesterday (2:01 PM) I sent 8 [...] patient to test INR. Kamran Ayon PharmD, [facility] Kamran Ayon [facility] 07/27/2024 4:00 PM Signed Called daughter again to discuss if Lovenox was started for the patient after heart cath. No answer. Left message to return call to Pharmacy Anticoagulation [facility]. If no call back or INR by Monday, consider starting the discharge process. Kamran Ayon PharmD, BCPS UlyssesAlejandro, [facility] 07/29/2024 5:32 PM Signed Called daughter - no answer. Left voicemail instructing patient to test INR via home meter as soon as possible, and/or call us to provide update re: use of Lovenox. Twin Cole, [facility] 07/30/2024 10:18 AM Signed Called daughter. Left VM to call PAC at [phone]. Please check INR with home meter. Is patient on Lovenox? Ruthie Cuevas [facility] 07/31/2024 3:51 PM Signed Called and LM [...] 2.1. Asked I'm to report that to [facility]. Advised him to continue 5mg daily and retest in 2 weeks. Ruthie Cuevas PharmD, CACP [facility] 08/14/2024 11:55 AM Signed Patient was due to test INR today will continue to monitor for results. Orville Ahn [facility] 08/21/2024 11:30 AM Signed Cal Mitchell was called and reminded to test INR today or as soon as possible. [employer] for pt's home number - January Quintanilla. Ruthie Cuevas PharmD Allergies As of Date: 07/25/2024 (No Known Allergies) Date Reviewed: 07/23/2024 Reviewed by: Dorothy Ray, RN - Fully Assessed Reason for Visit: Anticoagulation [8] Cmt: Patient update Primary Visit Diagnosis:FCI (current) use of anticoagulants [Z79.01] Other Visit [...] Insulin: No - Lancets (ONE TOUCH DELICA) [facility] lancets Test blood sugar(s) one time daily. Dx: 250.00. Ins (more content not included)... Normal [facility] CATH DIAGNOSTICon 07-23 CARD CATH DIAGNOSTIC Site Id: [facility] Lab #: DEFAULT Study Date: 07/23/2024 Start Time: End Time: Name Duty Pam Reddy MD PROC 1 Chayo Riley PROC SCRUB 1 Dorothy Huerta RN PROC [...] (more content not included)... Normal [facility] CTA ABD/PELV W IVCONon 07-23 CTA ABD/PELV W IVCON * * *Final Report* * * DATE OF EXAM: Jul 23 2024 9:29AM [facility] 0311 - CTA ABD/PELV W IVCON / [...] b. Annulus-LM distance: 1.6 cm Annulus angulations: ANGOLAN 10 cranial 0 The ascending thoracic aorta [...] as dissection, intramural hematoma, or contained rupture. Welding Equipment Repairer dimensions of the thoracic aorta are as follows: 3.8 cm at the sinuses of Valsalva (measured gomng-iq-nqfqw) 3.0 cm at the sinotubular junction. 3.5 cm in the mid-ascending aorta 3.2 cm at the distal ascending aorta 3.2 cm at the mid-transverse arch 3.3 cm at the proximal descending thoracic aorta 2.9 cm at the diaphragmatic hiatus Welding Equipment Repairer dimensions of the abdominal aorta are as follows: 2.7 cm at the supra-mesenteric segment 2.5 cm at the mesenteric segment 2.3 cm at the renal segment 2.0 cm at the infrarenal segment 1.9 cm at the aortic bi (more content not included)... Normal [facility] CTA CHEST (GATED) WO/W IVCON on 07-23-2024 CTA CHEST (GATED) WO/W IVCON * * *Final Report* * * DATE OF EXAM: Jul 23 2024 9:29AM [facility] 0126 - CTA CHEST (GATED) WO/W IVCON [...] b. Annulus-LM distance: 1.6 cm Annulus angulations: ANGOLAN 10 cranial 0 The ascending thoracic aorta [...] as dissection, intramural hematoma, or contained rupture. Welding Equipment Repairer dimensions of the thoracic aorta are as follows: 3.8 cm at the sinuses of Valsalva (measured nbybt-gd-ujnji) 3.0 cm at the sinotubular junction. 3.5 cm in the mid-ascending aorta 3.2 cm at the distal ascending aorta 3.2 cm at the mid-transverse arch 3.3 cm at the proximal descending thoracic aorta 2.9 cm at the diaphragmatic hiatus Welding Equipment Repairer dimensions of the abdominal aorta are as follows: 2.7 cm at the supra-mesenteric segment 2.5 cm at the mesenteric segment 2.3 cm at the renal segment 2.0 cm at the infrarenal segment 1.9 cm at the a (more content not included)... Normal [facility] HISTORY PHYSICALon HISTORY PHYSICAL HNO ID: [id number] Author: PAM REDDY MD Service: Cardiovascular Surgery [...] 2024 TIME: 9:42 AM Normal [facility] PT panel Coag (PPP)on 2023 INR Coag (PPP) [Relative time] 1.5 {INR} High 0.9-1.3 [facility] Comment on above: Order Comment: Speci men Type: BLOOD SPECIMENOrdering Facility: [facility] Address: [address] [place] [address] Result Comment: Valentina min K Antagonist (VKA) Therapeutic Range: INR 2 to 3 (Target INR of 2.5) Note: For patients treated with VKA drugs, such as warfarin, the [place] [employer] 2012 Guideline recommends [...] GH, et al. Chest 2012, 141:7S-47S Rosa PAGAN, et al. [facility] 2017, 70: 252-289 Performed By: #### 3 4528-0 ####[facility] CAROLE ROBERTSWNCLIA [id number] [address] OF [place] PT Coag (PPP) [Time] 15.0 s High <13.1 [facility] Comment on above: Order Comment: Speci men Type: BLOOD SPECIMENOrdering Facility: [facility] Address: [address] [place] [address] Performed By: #### 3 4528-0 ####[facility] CAROLE ROBERTSWNCLIA [id number] [address] [facility] -------- CAL MITCHELL ([id number]) 1945 M Date Time Provider Department 07/15/24 GUANAKITO RENO [facility] During your visit today, we recorded the following information about you: Teresa lAexis RN 07/15/2024 2:25 PM Addendum Patient's son [...] Insulin: No - Lancets (ONE TOUCH DELICA) [facility] lancets Test blood sugar(s) one time daily. [...] stenosis of unspecified carotid a*10/25/2013 03/26/2024 Frequency [[id number]] 02/11/2016 03/26/2024 BPH (benign prostatic hypertrophy) with [...] Hypertensive kidney disease with stage 3 chroni*01/29/2020 [facility] (current) use of anticoagulants [Z79.*02/04/2020 Dementia, vascular, [...] 05/03/2024 Encoun (more content not included)... Normal [facility]phone [facility] -------- CAL MITCHELL ([id number]) 1945 M Date Time Provider Department 07/15/24 GUANAKITO RENO [facility] During your visit today, we recorded [...] Insulin: No - Lancets (ONE TOUCH DELICA) [facility] lancets Test blood sugar(s) one time daily. 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 Normal [facility] CBC W Auto Differential pane l (Bld)on 07-12-2024 Basophils (Bld) [#/Vol] 0.07 10*3/uL Normal <0.11 [facility] Comment on above: Order Comment: Speci men Type: BLOOD SPECIMENOrdering Facility: [facility] Address: [address] [place] [address] Performed By: #### 5 7021-8 ####[facility] LABCLIA [id number] [place] [address] [place] Basophils/100 WBC (Bld) 1.1 % Normal C [facility] Comment on above: Order Comment: Speci men Type: BLOOD SPECIMENOrdering Facility: [facility] Address: [address] [place] [address] Performed By: #### 5 7021-8 ####[facility] LABCLIA [id number] [place] [address] [place] Differential cell count method Nom (Bld) Auto Normal [facility] Comment on above: Order Comment: Speci men Type: BLOOD SPECIMENOrdering Facility: [facility] Address: [address] [place] [address] Performed By: #### 5 7021-8 ####[facility] LABCLIA [id number] [place] [address] [place] Eosinophils (Bld) [#/Vol] 0.40 10*3/uL Normal <0.46 [facility] Comment on above: Order Comment: Speci men Type: BLOOD SPECIMENOrdering Facility: [facility] Address: [address] [place] [address] Performed By: #### 5 7021-8 ####[facility] LABCLIA [id number] [place] [address] [place] Eosinophils/100 WBC (Bld) 6.3 % Normal [facility] Comment on above: Order Comment: Speci men Type: BLOOD SPECIMENOrdering Facility: [facility] Address: [address] [place] [address] Performed By: #### 5 7021-8 ####[facility] LABCLIA [id number] [place] [address] [place] Erythrocyte distribution width (RBC) [Ratio] 14.6 % Normal 11.5-15.0 [facility] Comment on above: Order Comment: Speci men Type: BLOOD SPECIMENOrdering Facility: [facility] Address: [address] [place] [address] Performed By: #### 5 7021-8 ####[facility] LABCLIA [id number] [place] [address] [place] Hematocrit (Bld) [Volume fraction] 34.7 % Low 39.0-51.0 [facility] Comment on above: Order Comment: Speci men Type: BLOOD SPECIMENOrdering Facility: [facility] Address: [address] [place] [address] Performed By: #### 5 7021-8 ####[facility] LABCLIA [id number] [place] [address] [place] Hemoglobin (Bld) [Mass/Vol] 10.3 g/dL Low 13.0-17.0 [facility] Comment on above: Order Comment: Speci men Type: BLOOD SPECIMENOrdering Facility: [facility] Address: [address] [place] [address] Performed By: #### 5 7021-8 ####[facility] LABCLIA [id number] [place] [address] [place] Immature granulocytes (Bld) [#/Vol] 0.03 10*3/uL Normal <0.10 [facility] Comment on above: Order Comment: Speci men Type: BLOOD SPECIMENOrdering Facility: [facility] Address: [address] [place] [address] Performed By: #### 5 7021-8 ####[facility] LABCLIA [id number] [place] [address] [place] Immature granulocytes/100 WBC (Bld) 0.5 % Normal [facility] Comment on above: Order Comment: Speci men Type: BLOOD SPECIMENOrdering Facility: [facility] Address: [address] [place] [address] Performed By: #### 5 7021-8 ####[facility] LABCLIA [id number] [place] [address] [place] Lymphocytes (Bld) [#/Vol] 1.30 10*3/uL Normal 1.00-4.00 [facility] Comment on above: Order Comment: Speci men Type: BLOOD SPECIMENOrdering Facility: [facility] Address: [address] [place] [address] Performed By: #### 5 7021-8 ####[facility] LABCLIA [id number] [place] [address] [place] Lymphocytes/100 WBC (Bld) 20.3 % Normal [facility] Comment on above: Order Comment: Speci men Type: BLOOD SPECIMENOrdering Facility: [facility] Address: [address] [place] [address] Performed By: #### 5 7021-8 ####[facility] LABCLIA [id number] [place] [address] [place] MCH (RBC) [Entitic mass] 30.5 pg Normal 26.0-34.0 [facility] Comment on above: Order Comment: Speci men Type: BLOOD SPECIMENOrdering Facility: [facility] Address: [address] [place] [address] Performed By: #### 5 7021-8 ####[facility] LABCLIA [id number] [place] [address] [place] MCHC (RBC) [Mass/Vol] 29.7 g/dL Low 30.5-36.0 [facility] Comment on above: Order Comment: Speci men Type: BLOOD SPECIMENOrdering Facility: [facility] Address: [address] [place] [address] Performed By: #### 5 7021-8 ####[facility] LABCLIA [id number] [place] [address] [place] MCV (RBC) [Entitic vol] 102.7 fL High 80.0-100.0 C [facility] Comment on above: Order Comment: Speci men Type: BLOOD SPECIMENOrdering Facility: [facility] Address: [address] [place] [address] Performed By: #### 5 7021-8 ####[facility] LABCLIA [id number] [place] [address] [place] Monocytes (Bld) [#/Vol] 0.60 10*3/uL Normal <0.87 [facility] Comment on above: Order Comment: Speci men Type: BLOOD SPECIMENOrdering Facility: [facility] Address: [address] [place] [address] Performed By: #### 5 7021-8 ####[facility] LABCLIA [id number] [place] [address] [place] Monocytes/100 WBC (Bld) 9.4 % Normal C [facility] Comment on above: Order Comment: Speci men Type: BLOOD SPECIMENOrdering Facility: [facility] Address: [address] [place] [address] Performed By: #### 5 7021-8 ####[facility] LABCLIA [id number] [place] [address] [place] Neutrophils (Bld) [#/Vol] 4.00 10*3/uL Normal 1.45-7.50 [facility] Comment on above: Order Comment: Speci men Type: BLOOD SPECIMENOrdering Facility: [facility] Address: [address] [place] [address] Performed By: #### 5 7021-8 ####[facility] LABCLIA [id number] [place] [address] [place] Neutrophils/100 WBC (Bld) 62.4 % Normal [facility] Comment on above: Order Comment: Speci men Type: BLOOD SPECIMENOrdering Facility: [facility] Address: [address] [place] [address] Performed By: #### 5 7021-8 ####[facility] LABIA [id number] [place] [address] [place] Nucleated RBC (Bld) [#/Vol] 10*3/uL Normal <0.01 [facility] Comment on above: Order Comment: Speci men Type: BLOOD SPECIMENOrdering Facility: [facility] Address: [address] [place] [address] Performed By: #### 5 7021-8 ####[facility] LABCLIA [id number] [place] [address] [place] Nucleated RBC/100 WBC (Bld) [Ratio] 0.0 /100 WBC Normal [facility] Comment on above: Order Comment: Speci men Type: BLOOD SPECIMENOrdering Facility: [facility] Address: [address] [place] [address] Performed By: #### 5 7021-8 ####[facility] LABCLIA [id number] [address] [address] [place] Platelet mean volume (Bld) [Entitic vol] 10.5 fL Normal 9.0-12.7 [facility] Comment on above: Order Comment: Speci men Type: BLOOD SPECIMENOrdering Facility: [facility] Address: [address] [place] [address] Performed By: #### 5 7021-8 ####[facility] LABCLIA [id number] [place] [address] [place] Platelets (Bld) [#/Vol] 190 10*3/uL Normal 150-400 [facility] Comment on above: Order Comment: Speci men Type: BLOOD SPECIMENOrdering Facility: [facility] Address: [address] [place] [address] Performed By: #### 5 7021-8 ####[facility] LABIA [id number] [place] [address] [place] RBC (Bld) [#/Vol] 3.38 10*6/uL Low 4.20-6.00 [facility] Comment on above: Order Comment: Speci men Type: BLOOD SPECIMENOrdering Facility: [facility] Address: [address] [place] [address] Performed By: #### 5 7021-8 ####[facility] LABIA [id number] [place] [address] [place] WBC (Bld) [#/Vol] 6.40 10*3/uL Normal 3.70-11.00 [facility] Comment on above: Order Comment: Speci men Type: BLOOD SPECIMENOrdering Facility: [facility] Address: [address] [place] [address] Performed By: #### 5 7021-8 ####[facility] LABIA [id number] [place] [address] [place] CNOVon 09-27-2024 CNOV Office Visit (FAMPWS ) -------- CAL MITCHELL ([id number]) 1945 M Date Time Provider Department 07/12/24 11:20 AM GUANAKITO RENO FAMPWS During your visit today, we recorded the [...] or worsening shortness of breath. Currently wearing [employer] heart monitor. Placed yesterday. Follows with Cardiology. [...] 250.00. Insulin: No Lancets (ONE TOUCH DELICA) [facility] lancets Test blood sugar(s) one time daily. [...] Use Smoking (more content not included)... Normal [facility] CNOV Office Visit (FAMPWS ) -------- CLA MITCHELL ([id number]) 1945 M Date Time Provider Department 07/12/24 [facility] During your visit today, we recorded [...] Insulin: No - Lancets (ONE TOUCH DELICA) [facility] lancets Test blood sugar(s) one time daily. 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 Guanakito Reno MD 07/12/2024 12:49 [...] Insulin: No - Lancets (ONE TOUCH DELICA) [facility] lancets Test blood sugar(s) one time daily. 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 [Z79.*02/04/2020 Dementia, vascular, [...] Status:Closed by GUANAKITO RENO on 07/12/24 Normal [facility] Comprehensive metabolic 2000 panelon 07-12-2024 Albumin [Mass/Vol] 3.8 g/dL Low 3.9-4.9 [facility] Comment on above: Order Comment: Speci men Type: BLOOD SPECIMENOrdering Facility: [facility] Address: [address] [place] [address] Performed By: #### L IPNF, 90945-6, 11041-9 ####[facility] LABCLIA [id number] [place] [address] [place] ALP [Catalytic activity/Vol] 123 U/L High 38-113 [facility] Comment on above: Order Comment: Speci men Type: BLOOD SPECIMENOrdering Facility: [facility] Address: [address] [place] [address] Performed By: #### L IPNF, 58990-8, 07130-9 ####[facility] LABCLIA [id number] [place] [address] [place] ALT [Catalytic activity/Vol] 23 U/L Normal 10-54 [facility] Comment on above: Order Comment: Speci men Type: BLOOD SPECIMENOrdering Facility: [facility] Address: [address] [place] [address] Performed By: #### L IPNF, 63448-0, 35880-0 ####[facility] LABCLIA [id number] [place] [id number] [place] Anion gap [Moles/Vol] 11 mmol/L Normal 8-15 [facility] Comment on above: Order Comment: Speci men Type: BLOOD SPECIMENOrdering Facility: [facility] Address: [address] [place] [address] Performed By: #### L IPNF, 18804-0, 38982-5 ####[facility] LABCLIA [id number] [place] [address] [place] AST [Catalytic activity/Vol] 25 U/L Normal 14-40 [facility] Comment on above: Order Comment: Speci men Type: BLOOD SPECIMENOrdering Facility: [facility] Address: [address] [place] [address] Performed By: #### L IPNF, 47044-7, 30421-4 ####[facility] LABCLIA [id number] [place] [address] [place] Bilirubin [Mass/Vol] 0.4 mg/dL Normal 0.2-1.3 [facility] Comment on above: Order Comment: Speci men Type: BLOOD SPECIMENOrdering Facility: [facility] Address: [address] [place] [address] Performed By: #### L IPNF, 21449-7, 19407-2 ####[facility] LABCLIA [id number] [place] [address] [place] Calcium [Mass/Vol] 8.2 mg/dL Low 8.5-10.2 [facility] Comment on above: Order Comment: Speci men Type: BLOOD SPECIMENOrdering Facility: [facility] Address: [address] [place] [address] Performed By: #### L IPNF, 01628-5, 86245-5 ####[facility] LABCLIA [id number] [place] [address] [place] Chloride [Moles/Vol] 110 mmol/L High 98-107 [facility] Comment on above: Order Comment: Speci men Type: BLOOD SPECIMENOrdering Facility: [facility] Address: [address] [place] [address] Performed By: #### L IPNF, 99507-4, 37981-2 ####[facility] LABCLIA [id number] [place] [address] [place] CO2 [Moles/Vol] 22 mmol/L Normal 22-30 [facility] Comment on above: Order Comment: Speci men Type: BLOOD SPECIMENOrdering Facility: [facility] Address: [address] [place] [address] Performed By: #### L IPNF, 87935-3, 43519-9 ####[facility] LABCLIA [id number] [place] [address] [place] Creatinine [Mass/Vol] 2.40 mg/dL High 0.73-1.22 [facility] Comment on above: Order Comment: Speci men Type: BLOOD SPECIMENOrdering Facility: [facility] Address: [address] [place] [address] Performed By: #### L IPNF, 15773-2, ####[facility] LABCLIA [id number] [place] [address] [place] Creatinine and Glomerular filtration rate.predicted panel (S/P/Bld) 26 mL/min/1.73m??? Low >=60 [facility] Comment on above: Order Comment: Speci men Type: BLOOD SPECIMENOrdering Facility: [facility] Address: [address] [place] [address] Result Comment: Lina mated Glomerular Filtration Rate [...] actual GFR. Performed By: #### L IPNF, 86553-0, 19668-8 ####[facility] LABCLIA [id number] [place] [address] [place] Glucose [Mass/Vol] 100 mg/dL High 74-99 [facility] Comment on above: Order Comment: Speci men Type: BLOOD SPECIMENOrdering Facility: [facility] Address: [address] [place] [address] Result Comment: The [place] Diabetes Association (ADA) provides guidance for cutoff [...] Standards of Medical Care in Diabetes 2016, [place] Diabetes Association. Diabetes Care. 2016.39(Suppl 1). Performed By: #### L IPRENATO, 97031-6, 38050-6 ####[facility] LABCLIA [id number] [place] [address] [place] Potassium [Moles/Vol] 4.6 mmol/L Normal 3.7-5.1 [facility] Comment on above: Order Comment: Speci men Type: BLOOD SPECIMENOrdering Facility: [facility] Address: [address] [place] [address] Performed By: #### L WAYLON, 61906-8, 41533-0 ####[facility] LABCLIA [id number] [place] [address] [place] Protein [Mass/Vol] 6.6 g/dL Normal 6.3-8.0 [facility] Comment on above: Order Comment: Speci men Type: BLOOD SPECIMENOrdering Facility: [facility] Address: [address] [place] [address] Performed By: #### L IPNF, 68889-1, 83920-5 ####[facility] LABCLIA [id number] [place] [address] [place] Sodium [Moles/Vol] 143 mmol/L Normal 136-144 [facility] Comment on above: Order Comment: Speci men Type: BLOOD SPECIMENOrdering Facility: [facility] Address: [address] [place] [address] Performed By: #### L IPNF, 12736-1, 85671-3 ####[facility] LABCLIA [id number] [place] [address] [place] Urea nitrogen [Mass/Vol] 37 mg/dL High 9-24 [facility] Comment on above: Order Comment: Speci men Type: BLOOD SPECIMENOrdering Facility: [facility] Address: [address] [place] [address] Performed By: #### L IPNF, 11817-7, 84393-9 ####[facility] LABCLIA [id number] [place] [address] [place] HbA1c (Bld)on 07-12-2024 Average glucose Estimated from glycated hemoglobin (Bld) [Mass/Vol] 134 mg/dL Normal [facility] Comment on above: Order Comment: Jocelini men Type: BLOOD SPECIMENOrdering Facility: [facility] Address: [address] [place] [address] Result Comment: eAG: (Estimated average glucose) is a calculated value from HgbA1c and is group sales representative of the average blood glucose level in the last 2-3 month period. Performed By: #### 5 5454-3 ####[facility] LABCLIA [id number] [place] [address] [place] HbA1c (Bld) [Mass fraction] 6.3 % High 4.3-5.6 [facility] Comment on above: Order Comment: Marcelle men Type: BLOOD SPECIMENOrdering Facility: [facility] Address: [address] [place] [address] Result Comment: Amer [place] Diabetes Association guidelines indicate that patients with HgbA1c in the range 5.7-6.4% are at increased risk for development of diabetes, and intervention by lifestyle modification may be beneficial. HgbA1c greater or equal to 6.5% is considered diagnostic of diabetes. Performed By: #### 5 5454-3 ####[facility] LABCLIA [id number] OF [place] LIPID PANEL, NONFASTINGon Cholesterol [Mass/Vol] 156 mg/dL Normal <200 [facility] Comment on above: Order Comment: Speci men Type: BLOOD SPECIMENOrdering Facility: [facility] Address: [address] [place] [address] Result Comment: <200 mg/dL, Desirable 200-239 mg/dL, Borderline high >239 mg/dL, High Performed By: #### L IPNF, 49598-6, 02018-8 ####[facility] LABCLIA [id number] [place] [address] [place] HDL CHOLESTEROL, NF 44 mg/dL Normal >39 [facility] Comment on above: Order Comment: Speci men Type: BLOOD SPECIMENOrdering Facility: [facility] Address: [address] [place] [address] Result Comment: 40-5 9 mg/dL, Acceptable >59 mg/dL, High: Negative risk factor for coronary heart disease <40 mg/dL, Low: Positive risk factor for coronary heart disease Performed By: #### L IPNF, 73554-2, 58068-3 ####[facility] LABCLIA [id number] [place] [address] [place] LDL CHOLESTEROL, NF 93 mg/dL Normal <100 [facility] Comment on above: Order Comment: Speci men Type: BLOOD SPECIMENOrdering Facility: [facility] Address: [address] [place] [address] Result Comment: <100 mg/dL, Optimal 100-129 mg/dL, Near optimal/above optimal 130-159 mg/dL, Borderline high 160-189 mg/dL, High >189 mg/dL, Very high Secondary prevention optimal LDL Cholesterol levels are recommended to be < 70 mg/dL Performed By: #### L IPNF, 89753-5, 27524-1 ####[facility] LABCLIA [id number] [place] [address] [place] LDL/HDL RATIO, NF 2.11 mg/dL Normal <2.54 [facility] Comment on above: Order Comment: Marcelle shultz Type: BLOOD SPECIMENOrdering Facility: [facility] Address: [address] [place] [address] Result Comment: Scot soto: 1. National Cholesterol Education Program ATP III Guideline At-A-Glance Quick Desk Reference: National Heart, Lung, and Blood [place]. National Institutes of Health. 2001: NIH Publication No. 01-3305. 2. An International Atherosclerosis Society position paper: global recommendations for the management of dyslipidemia: executive summary, Atherosclerosis. 2014: 232(2):410-413. Performed By: #### L IPNF, 28632-0, 04829-5 ####[facility] LABCLIA [id number] [address] STATES [facility] NON HDL CHOL, NF 112 mg/dL Normal <130 [facility] Comment on above: Order Comment: Marcelle shultz Type: BLOOD SPECIMENOrdering Facility: [facility] Address: [address] [place] [address] Result Comment: <130 mg/dL, Optimal 130-159 mg/dL, Near optimal/above optimal 160-189 mg/dL, Borderline high 190-219 mg/dL, High >219 mg/dL, Very high Secondary prevention optimal non HDL Cholesterol levels are recommended to be <100 mg/dL Performed By: #### L IPNF, 59685-8, 27097-1 ####[facility] LABCLIA [id number] [address] STATES [place] T CHOL/HDL RATIO NF 3.55 mg/dL Normal <5.10 [facility] Comment on above: Order Comment: Marcelle lexii Type: BLOOD SPECIMENOrdering Facility: [facility] Address: [address] [place] [address] Performed By: #### L IPNF, 98969-0, 97136-8 ####[facility] LABCLIA [id number] [place] [address] [place] TRIGLYCERIDES, NF 97 mg/dL Normal <150 [facility] Comment on above: Order Comment: Speci men Type: BLOOD SPECIMENOrdering Facility: [facility] Address: [address] [place] [address] Result Comment: <150 mg/dL, Normal 150-199 mg/dL, Borderline high 200-499 mg/dL, High >499 mg/dL, Very high Performed By: #### L IPNF, 03942-3, 58897-9 ####[facility] LABCLIA [id number] [address] [place] VLDL CHOLESTEROL, NF 19 mg/dL Normal <30 [facility] Comment on above: Order Comment: Speci men Type: BLOOD SPECIMENOrdering Facility: [facility] Address: [address] [place] [address] Performed By: #### L IPRENATO, 70794-6, 22439-1 ####[facility] LABCLIA [id number] [address] [place] NT-proBNP [facility] [place] 07-12 Natriuretic peptide.B prohormone N-Terminal [Mass/Vol] 314 pg/mL Normal <450 [facility] Comment on above: Order Comment: Speci men Type: BLOOD SPECIMENOrdering Facility: [facility] Address: [address] [place] [address] Performed By: #### L IPNF, 31070-4, 86147-5 ####[facility] LABIA [id number] [place] [address] [place] PT panel Coag (PPP)on 2023 INR Coag (PPP) [Relative time] 2.8 {INR} High 0.9-1.3 [facility] Comment on above: Order Comment: Speci men Type: BLOOD SPECIMENOrdering Facility: [facility] Address: [address] [place] [address] Result Comment: Valentina min K Antagonist (VKA) Therapeutic Range: INR 2 to 3 (Target INR of 2.5) Note: For patients treated with VKA drugs, such as warfarin, the [place] College of Chest Physicians 2012 Guideline recommends [...] Chest 2012, 141:7S-47S Rosa RA, et al. [facility] 2017, 70: 252-289 Performed By: #### 3 4528-0 ####[facility] [id number] [place] [address] [place] PT Coag (PPP) [Time] 27.0 s High 9.7-13.0 [facility] Comment on above: Order Comment: Speci men Type: BLOOD SPECIMENOrdering Facility: [facility] Address: [address] [place] [address] Performed By: #### 3 4528-0 ####[facility] [id number] [address] [place] CNOVon 07-10-2024 CNOV Office Visit (AGTAVR ) -------- CAL MITCHELL ([id number]) 1945 M Date Time Provider Department 07/10/24 [...] 10, 2024 TIME: 8:06 AM PAGER/CONTACT #: [phone] Josselyn Mayer ÁLVARO Lua.ATHLETIC EVENTS SCORER 07/10/2024 9:31 AM Addendum Today, you met [...] (more content not included)... Normal [facility] CNOV Office Visit (AGTAVR ) -------- CAL MITCHELL ([id number]) 1945 M Date Time Provider Department 07/10/24 [...] 10, 2024 TIME: 8:13 AM PAGER/CONTACT #: [phone] Cal Thacker MD 07/10/2024 9:32 AM Signed PRIMARY CARE PHYSICIAN: [place] [address] Subjective Chief Complaint Patient presents with: Aortic [...] (more content not included)... Normal [facility] ECG B/O W INTERP (MED OFFICE )on 07-10-2024 Sinus rhythm with fi rst degree heart block [facility] NURSING PROGon 07-10-2024 NURSING PROG HNO ID: [id number] Author: JUDY DÍAZ, Contestant Coordinator Service: ? Author Type: Contestant Coordinator Type: Nursing Progress Note Filed: 07/10/2024 10:29 Note Text: Applied 14 day extended wear EKG patch. Pt verbalized understanding of monitor use / diary. Normal [facility] CNPNon 07-05-2024 CNPN Telephone (H2Mob) -------- CAL MITCHELL ([id number]) 1945 M Date Time Provider Department 07/05/24 ANNAMARIE GARCIA During your visit today, we recorded the following information about you: Annamarie Garcia [facility] 07/05/2024 9:47 AM Signed [facility]tico[facility] Anticoagulation Episode Summary Anticoagulation Care Providers Provider Role Specialty Phone number Guanakito Reno MD [facility] [phone] Cal Mitchell is a 79 year old [...] 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 Jimmy Carrizales [facility] 07/18/2024 2:29 PM Signed Patient was due to test INR today. Will continue to monitor for results. Follow up in one week if no results received. 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 lancets Test blood sugar(s) one time daily. [...] OTHER ABNORM (more content not included)... Normal [facility] CAL MITCHELL ([id number]) 1945 M Date Time Provider Department 06/27/24 GUANAKITO RENO [facility] During your visit today, we recorded the following information about you: Allergies As of Date: 2024 (No Known Allergies) Date Reviewed: 06/06/2024 Reviewed by: Carolina Landeros APRN.ATHLETIC EVENTS SCORER - Fully Assessed Primary Visit Diagnosis:Screen for colon cancer [Z12.11] Order(s):IMMUNOCHEMICAL FECAL OCCULT BLOOD TEST [SQIFOBT] Order #: [id number]. #:[id number] Prescriptions as of 2024 - atorvastatin (LIPITOR) [...] Insulin: No - Lancets (ONE TOUCH DELICA) [facility] lancets Test blood sugar(s) one time daily. [...] stenosis of unspecified carotid a*10/25/2013 03/26/2024 Frequency [[id number]] 02/11/2016 03/26/2024 BPH (benign prostatic hypertrophy) with [...] Hypertensive kidney disease with stage 3 chroni*01/29/2020 [facility] (current) use of anticoagulants [Z79.*02/04/2020 Dementia, vascular, [...] Status:Closed by GUANAKITO RENO on 06/27/24 Normal [facility] Hemoccult Stl Ql IAon 2023 Lower GI hemoglobin IA Ql (Stl) Negative Normal Negative [facility] Comment on above: Order Comment: Speci men Type: STOOL SPECIMENOrdering Facility: [facility] Address: [address] [place] [address] Performed By: #### 2 9771-3 ####[facility] LABCLIA [id number] [address] [facility] CNPN Telephone (PHAMTE) -------- CAL MITCHELL ([id number]) 1945 M Date Time Provider Department 06/18/24 JIMMY CARRIZALES PHACATALINAE During your visit today, we recorded the following information about you: Jimmy Carrizales, [facility] 06/18/2024 8:42 AM Signed [facility] Anticoagulation Clinic Anticoagulation Episode Summary Anticoagulation Care Providers Provider Role Specialty Phone number Guanakito Reno MD [facility] [phone] Cal Lua Paula is a 78 year [...] 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: [facility]CI (current) use of anticoagulants Paroxysmal atrial fibrillation [...] Pharmacy Anticoagulation Clinic Pharmacy Anticoagulation Clinic Pager: [phone]. Jimmy Carrizales RPh 07/02/2024 5:21 PM Signed Patient was due to test INR today. Will continue to monitor for results. Follow up in one week if no results received. Jimmy Carrizales RPh Allergies As of Date: 06/18/2024 (No Known Allergies) Date Reviewed: 06/06/2024 Reviewed by: Carolina Landeros APRN.CNP - Fully Assessed Reason for Visit: Anticoagulation Telephone Fu [148] Cmt: Home INR Primary Visit Diagnosis:FCI (current) use of anticoagulants [Z79.01] Other Visit [...] Insulin: No - Lancets (ONE TOUCH DELICA) [facility] lancets Test blood sugar(s) one time daily. [...] 05/24/2018 Occlu (more content not included)... Normal [facility] CNOVon 06-06-2024 CNOV Office Visit (FAMPWS ) -------- PAULACAL ([id number]) 1945 M Date Time Provider Department 06/06/24 11:20 AM [facility] During your visit today, we recorded the following information about you: Pulse Respiration Blood pressure Weight 71/minute 18/minute 144/68 110.7 kg Carolina Landeros APRN.ATHLETIC EVENTS SCORER 06/06/2024 12:14 PM Signed This is a [...] 250.00. Insulin: No Lancets (ONE TOUCH DELICA) [facility] lancets Test blood sugar(s) one time daily. [...] breath so (more content not included)... Normal [facility] CNOVon 06-05-2024 CNOV Office Visit (UCWSTR ) -------- CAL MITCHELL ([id number]) 1945 M Date Time Provider Department 06/05/24 5:00 PM [facility] During your visit today, we recorded the following information about you: Temperature Pulse Respiration Blood pressure 96.6 degrees 75/minute 19/minute 140/70 Weight 110.7 kg Valerie Gruber APRN.ATHLETIC EVENTS SCORER 06/05/2024 5:16 PM Signed This note was created using Pa[employer] Downes Associatesriter. Subjective Cal Mitchell is a 78 year old male. 78 year old male with PMH HTN, hyperlipidemia, afib, PAD, CKD, DM presents for medical complaints. Acute onset of symptoms was over a week ago Patients daughter had sent in a Zoomingo message on 06/03/24. At that time she [...] history is provided by the patient. No english as a second language teacher was used. Edema This is a new [...] 8 hours as needed. blood sugar diagnostic (Powerlytics ULTRA TEST) test strip Test blood sugar(s) one times daily. Dx: 250.00. Insulin: No [facility]CH DELICA[facility] blood sugar(s) one time [...] chest tigh (more content not included)... [facility] (AGCARDPOB ) -------- CAL MITCHELL ([id number]) 1945 M Date Time Provider Department 05/20/24 PAM REDDY During your visit today, we recorded the [...] PM Signed ----- Message from Josselyn Mayer APRN.ATHLETIC EVENTS SCORER sent at 05/20/2024 2:28 PM EDT ----- Creatinine 2.3. Per chart review he was asymptomatic but had an episode of syncope. Do you want work up first or just valve clinic? Josselyn ----- Message ----- From: Pam Reddy MD Sent: 05/18/2024 8:44 AM EDT To: Chely Nicolas RN; Josselyn Mayer APRN.ATHLETIC EVENTS SCORER Aortic stenosis need to establish care at the valve clinic Chely Zeng RN 05/23/2024 8:26 AM Signed Pam Reddy MD You; Josselyn Mayer, ÁLVARO.CNP15 [...] hours as needed. - blood sugar diagnostic (Powerlytics ULTRA TEST) test strip Test blood sugar(s) one times daily. Dx: 250.00. Insulin: No - Lancets (ONE TOUCH DELICA) [facility] lancets Test blood sugar(s) one time daily. 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 Normal [facility] CNPN Telephone (AGCNIDAPOB ) -------- CAL MITCHELL ([id number]) 1945 M Date Time Provider Department 05/20/24 JOSSELYN MAYER During your visit today, we recorded the following information about you: Josselyn Mayer, TEXTILE CONSERVATOR.ATHLETIC EVENTS SCORER 05/20/2024 2:34 PM Signed Attempted to call [...] LPN - Fully Assessed Reason for Visit: 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 - Other [3602] Prescriptions as of 07/22/2024 [...] stenosis of unspecified carotid a*10/25/2013 03/26/2024 Frequency [[id number]] 02/11/2016 03/26/2024 BPH (benign prostatic hypertrophy) with [...] Hypertensive kidney disease with stage 3 chroni*01/29/2020 [facility] (current) use of anticoagulants [Z79.*02/04/2020 Dementia, vascular, mixed, with behavioral dist*08/26/2020 08/14/2023 Obesity, Class II, BMI 35-39.9 [E66.812] 08/15/2022 Aortic valve disorder [I35.9] 08/15/2022 Abnormal electrocardiography [R94.31] 08/14/2023 Diagnosed: 08/14/2023 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 (more content not included)... 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 message Advised patient to continue current weekly dose as noted above Next home INR check scheduled on 05/30/2024 Dorothy Sainz [facility] Clinical Pharmacist, Pharmacy Anticoagulation Clinic Pharmacy Anticoagulation Clinic Pager: [phone]. Jimmy Carrizales RPh 05/30/2024 3:39 PM Signed Patient was due to test INR today. Will continue to monitor for results. Follow up in one week if no results received. Stuart Gamboa Megan R [facility] 06/06/2024 2:34 PM Signed Cal Mitchell was called, lvmx and reminded to test INR today or as soon as possible. Jimmy Rizoministerio, [facility] Jimmy Carrizales, [facility] 06/13/2024 11:42 AM Signed Cal Villanuevaersoll was called, lvmx and reminded to test INR today or as soon as possible. Jimmy Carrizales [facility] Daniel (Magnetic Tape Composer Operator)Ashley 06/13/2024 5:04 PM Signed DISCHARGE No return call from patient. Letter sent. FINAL ATTEMPT letter sent at this time. If no response from patient within 3 weeks, patient will be discharged from PAC at that time. Will also route to referring MD as SEAN and to see if office can assist in reaching patient. Ashley Sanchez CPhT (Feed Mill Lab Technician) Pharmacy Anticoagulation Clinic' Allergies As of Date: 05/17/2024 (No Known Allergies) Date Reviewed: 05/06/2024 Reviewed by: Twin Garcia LPN - Fully Assessed Reason for Visit: Anticoagulation Telephone Fu [148] Primary Visit Diagnosis:FCI (current) use of anticoagulants [Z79.01] Other Visit [...] 07/20/2016 ACTI (more content not included)... Normal [facility] - bilateral and Ur inary bladderon 05-02-2024 IMPRESSION: No hydronephrosis. Cholelithiasis. Air Brake Tester: MAC Transcribe Date/Time: May 02 2024 7:17P Dictated by : TIN COTTER DO This examination was interpreted and the report reviewed and electronically signed by: TIN COTTER DO on May 02 2024 7:19PM [facility] DIVISION OF RADIOLOGY * * *Final Report* * * DATE OF EXAM: May 02 2024 10:49AM U 1055 - US KIDNEY/BLADDER / PROCEDURE REASON: [...] Incidentally noted cholelithiasis. DIVISION OF RADIOLOGY Provider, Krissy Cueva [facility] - 05/02/2024 * * *Final Report* * [...] noted cholelithiasis. IMPRESSION IMPRESSION: No hydronephrosis. Cholelithiasis. Air Brake Tester: PSCB Transcribe Date/Time: May 02 2024 7:17P Dictated by : TIN COTTER DO This examination was interpreted and the report reviewed and electronically signed by: TIN COTTER DO on May 02 2024 7:19PM EST [facility] Radiology Study observation (narrative) Alexx Lopes US Kidney - bilateral and Ur inary bladderOrdered By: Ccf Provider on 05-02-2024 [facility] NT PRO BNPon 03-26-2024 Natriuretic peptide.B prohormone N-Terminal [Mass/Vol] 501 pg/mL High NINF - 450 pg/mL [facility] Natriuretic peptide.B prohor jodie N-Terminal [Mass/Vol]on 03-26-2024 Interpretation and review of laboratory results Abnormal [facility] THYROID STIMULATING HORMONEo n 03-26-2024 TSH Qn 2.950 m[IU]/L [facility] TSH Qnon 03-26-2024 Interpretation and review of laboratory results Normal [facility] CBC panel Auto (Bld)on 03-25 Erythrocyte distribution width (RBC) [Ratio] 14.9 % 11.5 - 15.0 % [facility] Hematocrit (Bld) [Volume fraction] 31.8 % Low 39.0 - 51.0 % [facility] Hemoglobin (Bld) [Mass/Vol] 9.6 g/dL Low 13.0 - 17.0 g/dL [facility] Interpretation and review of laboratory results Abnormal [facility] MCH (RBC) [Entitic mass] 30.9 pg 26.0 - 34.0 pg [facility] MCHC (RBC) [Mass/Vol] 30.2 g/dL Low 30.5 - 36.0 g/dL [facility] MCV (RBC) [Entitic vol] 102.3 fL High 80.0 - 100.0 fL [facility] Nucleated RBC (Bld) [#/Vol] NINF [facility] Platelet mean volume (Bld) [Entitic vol] 9.8 fL 9.0 - 12.7 fL [facility] Platelets (Bld) [#/Vol] 158 10*3/uL [facility] RBC (Bld) [#/Vol] 3.11 10*6/uL Low 4.20 - 6.0 0 m/uL [facility] WBC (Bld) [#/Vol] 4.72 10*3/uL [facility] Comprehensive metabolic 2000 panelOrdered By: Haley Marie on 03-25-2024 Albumin [Mass/Vol] 3.7 g/dL Low 3.9 - 4.9 g/dL [facility] ALP [Catalytic activity/Vol] 109 U/L 38 - 113 U/L [facility] ALT [Catalytic activity/Vol] 15 U/L 10 - 54 U/L [facility] Anion gap [Moles/Vol] 12 mmol/L 8 - 15 mmol/L [facility] AST [Catalytic activity/Vol] 19 U/L 14 - 40 U/L [facility] Bilirubin [Mass/Vol] 0.3 mg/dL 0.2 - 1 .3 mg/dL [facility] Calcium [Mass/Vol] 8.6 mg/dL 8.5 - 10. 2 mg/dL [facility] Chloride [Moles/Vol] 113 mmol/L High 98 - 10 7 mmol/L [facility] CO2 [Moles/Vol] 16 mmol/L Low 22 - 30 mmol/L [facility] Creatinine [Mass/Vol] 2.48 mg/dL High 0.73 - 1.22 mg/dL [facility] GFR/1.73 sq M.predicted among non-blacks MDRD (S/P/Bld) [Vol rate/Area] 26 mL/min/{1.73_m2} Low - PINF [facility] Comment on above: Estimated Glomerular Filtration [...] [Mass/Vol] 99 mg/dL 74 - 99 mg/dL [facility] Comment on above: The [place] Diab[employer] s Association (ADA) provides guidance for [...] Standards of Medical Care in Diabetes 2016, [place] Diabetes Association. Diabetes Care. 2016.39(Suppl 1). Interpretation and review of laboratory results Abnormal [facility] Potassium [Moles/Vol] 4.4 mmol/L 3.7 - 5.1 mmol/L [facility] Protein [Mass/Vol] 6.4 g/dL 6.3 - 8.0 g/dL [facility] Sodium [Moles/Vol] 141 mmol/L 136 - 144 mmol/L [facility] Urea nitrogen [Mass/Vol] 49 mg/dL High 9 - 24 mg/dL [facility] ALBUMIN/CREAT RATIO RND URon 08-14-2023 Albumin DL <= 20 mg/L (U) [Mass/Vol] 26.7 mg/L [facility] Albumin/Creatinine (U) [Mass ratio] 27 mg/g <30 mg/g [facility] Creatinine (U) [Mass/Vol] 98.9 mg/dL 20.0 - 300.0 mg/dL [facility] CBC W Auto Differential pane l (Bld)on 08-14-2023 Basophils (Bld) [#/Vol] 0.05 10*3/uL <0.11 k/uL [facility] Basophils/100 WBC (Bld) 0.9 % [facility] Differential cell count method Nom (Bld) Auto [facility] Eosinophils (Bld) [#/Vol] 0.44 10*3/uL <0.46 k/uL [facility] Eosinophils/100 WBC (Bld) 8.3 % [facility] Erythrocyte distribution width (RBC) [Ratio] 14.5 % 11.5 - 15.0 % [facility] Hematocrit (Bld) [Volume fraction] 38.6 % Low 39.0 - 51.0 % [facility] Hemoglobin (Bld) [Mass/Vol] 11.7 g/dL Low 13.0 - 17.0 g/dL [facility] Immature granulocytes (Bld) [#/Vol] <0.10 k/uL [facility] Immature granulocytes/100 WBC (Bld) 0.4 % [facility] Lymphocytes (Bld) [#/Vol] 1.18 10*3/uL 1.00 - 4.00 k/uL [facility] Lymphocytes/100 WBC (Bld) 22.1 % [facility] MCH (RBC) [Entitic mass] 31.3 pg 26.0 - 34.0 pg [facility] MCHC (RBC) [Mass/Vol] 30.3 g/dL Low 30.5 - 36.0 g/dL [facility] MCV (RBC) [Entitic vol] 103.2 fL High 80.0 - 100.0 fL [facility] Monocytes (Bld) [#/Vol] 0.42 10*3/uL <0.87 k/uL [facility] Monocytes/100 WBC (Bld) 7.9 % [facility] Neutrophils (Bld) [#/Vol] 3.22 10*3/uL 1.45 - 7.50 k/uL [facility] Neutrophils/100 WBC (Bld) 60.4 % [facility] Nucleated RBC (Bld) [#/Vol] <0.01 k/uL [facility] Nucleated RBC/100 WBC (Bld) [Ratio] 0.0 /100 WBC [facility] Platelet mean volume (Bld) [Entitic vol] 10.5 fL 9.0 - 12.7 fL [facility] Platelets (Bld) [#/Vol] 144 10*3/uL Low 150 - 400 k/uL [facility] RBC (Bld) [#/Vol] 3.74 10*6/uL Low 4.20 - 6.0 0 m/uL [facility] WBC (Bld) [#/Vol] 5.33 10*3/uL 3.70 - 11.00 k/uL [facility] Comprehensive metabolic 2000 panelon 08-14-2023 Albumin [Mass/Vol] 4.1 g/dL 3.9 - 4.9 g/dL [facility] ALP [Catalytic activity/Vol] 111 U/L 38 - 113 U/L [facility] ALT [Catalytic activity/Vol] 21 U/L 10 - 54 U/L [facility] Anion gap [Moles/Vol] 11 mmol/L 9 - 18 mmol/L [facility] AST [Catalytic activity/Vol] 26 U/L 14 - 40 U/L [facility] Bilirubin [Mass/Vol] 0.5 mg/dL 0.2 - 1 .3 mg/dL [facility] Calcium [Mass/Vol] 8.8 mg/dL 8.5 - 10. 2 mg/dL [facility] Chloride [Moles/Vol] 106 mmol/L High 97 - 10 5 mmol/L [facility] CO2 [Moles/Vol] 24 mmol/L 22 - 30 mmol/L [facility] Creatinine [Mass/Vol] 2.30 mg/dL High 0.73 - 1.22 mg/dL [facility] Estimated Glomerular Filtration Rate 28 mL/min/1.73m Low >=60 mL/min/1.73 m [facility] Glucose [Mass/Vol] 113 mg/dL High 74 - 99 mg/dL [facility] Potassium [Moles/Vol] 4.6 mmol/L 3.7 - 5.1 mmol/L [facility] Protein [Mass/Vol] 7.0 g/dL 6.3 - 8.0 g/dL [facility] Sodium [Moles/Vol] 141 mmol/L 136 - 144 mmol/L [facility] Urea nitrogen [Mass/Vol] 28 mg/dL High 9 - 24 mg/dL [facility] HbA1c (Bld)on 08-14-2023 Average glucose Estimated from glycated hemoglobin (Bld) [Mass/Vol] 108 mg/dL [facility] HbA1c (Bld) [Mass fraction] 5.4 % 4.3 - 5.6 % [facility] Lipid 1996 panelon Cholesterol [Mass/Vol] 165 mg/dL <200 mg/dL [facility] Cholesterol in HDL [Mass/Vol] 44 mg/dL >39 mg/dL [facility] Cholesterol in LDL [Mass/Vol] 100 mg/dL High <100 mg/dL [facility] Cholesterol in LDL/Cholesterol in HDL [Mass ratio] 2.27 {ratio} <2.54 [facility] Cholesterol in VLDL [Mass/Vol] 21 mg/dL <30 mg/dL [facility] Cholesterol non HDL [Mass/Vol] 121 mg/dL <130 mg/dL [facility] Cholesterol.total/Julia sterol in HDL [Mass ratio] 3.75 {ratio} <5.10 [facility] Fasting Time 14 hrs [facility] Triglyceride [Mass/Vol] 106 mg/dL <150 mg/dL [facility] INR FINGERSTICK B/Oon 2021 INR Coag (Bld) [Relative time] 1.9 (self reporting) [facility] INR FINGERSTICK B/Oon 2021 INR Coag (Bld) [Relative time] 2.1 biotel [facility] Quality Check No [facility] Vital Signs Date Time Vital Sign Value Performing Clinician Facility 03-07-2025 12:57-0400 Body height 177.[address] Guanakito Reno MD Work Phone: [facility] 03-07-2025 12:57-0400 Body mass index (BMI) [Ratio] 35.9 kg/m2 Dr. Guanakito Reno MD Work Phone: [facility] 03-07-2025 12:57-0400 Body weight 113.[address] Guanakito Reno MD Work Phone: [facility] 01-21-2025 15:33-0400 Body mass index (BMI) [Ratio] 37.02 kg/m2 Carolina Suppan TEXTILE CONSERVATOR.ATHLETIC EVENTS SCORER Work Phone: [facility] 01-21-2025 15:33-0400 Body temperature 97.59 [degF] Carolina Suppan TEXTILE CONSERVATOR.ATHLETIC EVENTS SCORER Work Phone: [facility] 01-21-2025 15:33-0400 Body weight 117.03 kg Carolina Suppan TEXTILE CONSERVATOR.ATHLETIC EVENTS SCORER Work Phone: [facility] 01-21-2025 15:33-0400 Diastolic blood pressure 60 mm[Hg] Carolina Suppan TEXTILE CONSERVATOR.ATHLETIC EVENTS SCORER Work Phone: [facility] 01-21-2025 15:33-0400 Heart rate 59 /min Carolina Suppan TEXTILE CONSERVATOR.ATHLETIC EVENTS SCORER Work Phone: [facility] 01-21-2025 15:33-0400 SaO2% (BldA) [Mass fraction] 97 % Carolina Suppan TEXTILE CONSERVATOR.ATHLETIC EVENTS SCORER Work Phone: [facility] 01-21-2025 15:33-0400 Systolic blood pressure 122 mm[Hg] Carolina Suppan TEXTILE CONSERVATOR.ATHLETIC EVENTS SCORER Work Phone: [facility] 08-06-2024 12:57-0400 Body height 177.8 cm Laura Iraheta MD Work Phone: [facility] Comment on above: patient reports 08-06-2024 12:57-0400 Body mass index (BMI) [Ratio] 34.44 kg/m2 Laura Iraheta MD Work Phone: [facility] 08-06-2024 12:57-0400 Body weight 108.86 kg Laura Iraheta MD Work Phone: [facility] 08-06-2024 12:57-0400 Diastolic blood pressure 68 mm[Hg] Laura Iraheta MD Work Phone: [facility] 08-06-2024 12:57-0400 Heart rate 61 /min Laura Iraheta MD Work Phone: [facility] 08-06-2024 12:57-0400 SaO2% (BldA) [Mass fraction] 99 % Laura Iraheta MD Work Phone: [facility] 08-06-2024 12:57-0400 Systolic blood pressure 128 mm[Hg] Laura Iraheta MD Work Phone: [facility] 07-12-2024 11:22-0400 Body height 177.8 cm Guanakito Reno MD Work Phone: [facility] 07-12-2024 11:22-0400 Body mass index (BMI) [Ratio] 34.55 kg/m2 Guanakito Reno MD Work Phone: [facility] 07-12-2024 11:22040 Body weight 109.23 kg Guanakito Reno MD Work Phone: [facility] 07-12-2024 11:22-0400 Diastolic blood pressure 62 mm[Hg] Guanakito Reno MD Work Phone: [facility] 07-12-2024 11:22-0400 Heart rate 59 /min Guanakito Reno MD Work Phone: [facility] 07-12-2024 11:22-0400 Systolic blood pressure 114 mm[Hg] Guanakito Reno MD Work Phone: [facility] 07-10-2024 08:11-0400 Body height 177.8 cm Cal Thacker MD Work Phone: [facility] Comment on above: Patient reports 07-10-2024 08:11-0400 Body mass index (BMI) [Ratio] 34.49 kg/m2 Cal Thacker MD Work Phone: [facility] 07-10-2024 08:11-0400 Body weight 109.05 kg Cal Thacker MD Work Phone: [facility] 07-10-2024 08:11-0400 Diastolic blood pressure 70 mm[Hg] Cal Thacker MD Work Phone: [facility] 07-10-2024 08:11-0400 Heart rate 94 /min Cal Thacker MD Work Phone: [facility] 07-10-2024 08:11-0400 SaO2% (BldA) [Mass fraction] 94 % Cal Thacker MD Work Phone: [facility] 07-10-2024 08:11-0400 Systolic blood pressure 120 mm[Hg] Cal Thacker MD Work Phone: [facility] 07-10-2024 08:08-0400 Body height 177.8 cm Pam Reddy MD Work Phone: [facility] Comment on above: Patient reports 07-10-2024 08:08-0400 Body mass index (BMI) [Ratio] 34.49 kg/m2 Pam Reddy MD Work Phone: [facility] 07-10-2024 08:08-0400 Body weight 109.05 kg Pam Reddy MD Work Phone: [facility] Comment on above: Fully clothed with shoes on. 07-10-2024 08:08-0400 Diastolic blood pressure 70 mm[Hg] Pam Reddy MD Work Phone: [facility] 07-10-2024 08:08-0400 Heart rate 94 /min Pam Reddy MD Work Phone: [facility] 07-10-2024 08:08-0400 SaO2% (BldA) [Mass fraction] 94 % Pam Reddy MD Work Phone: [facility] 07-10-2024 08:08-0400 Systolic blood pressure 120 mm[Hg] Pam Reddy MD Work Phone: [facility] 06-06-2024 11:31-0400 Body mass index (BMI) [Ratio] 36.03 kg/m2 Carolina Landeros TEXTILE CONSERVATOR.ATHLETIC EVENTS SCORER Work Phone: [facility] 06-06-2024 11:31-0400 Body weight 110.68 kg Carolina Landeros TEXTILE CONSERVATOR.ATHLETIC EVENTS SCORER Work Phone: [facility] 06-06-2024 11:31-0400 Diastolic blood pressure 68 mm[Hg] Carolina Landeros TEXTILE CONSERVATOR.ATHLETIC EVENTS SCORER Work Phone: [facility] 06-06-2024 11:31-0400 Heart rate 71 /min Carolina Suppan TEXTILE CONSERVATOR.ATHLETIC EVENTS SCORER Work Phone: [facility] 06-06-2024 11:31-0400 Respiratory rate 18 /min Carolina Suppan TEXTILE CONSERVATOR.ATHLETIC EVENTS SCORER Work Phone: [facility] 06-06-2024 11:31-0400 SaO2% (BldA) [Mass fraction] 99 % Carolina Suppan TEXTILE CONSERVATOR.ATHLETIC EVENTS SCORER Work Phone: [facility] 06-06-2024 11:31-0400 Systolic blood pressure 144 mm[Hg] Carolina Suppan TEXTILE CONSERVATOR.ATHLETIC EVENTS SCORER Work Phone: [facility] 06-05-2024 16:41-0400 Body mass index (BMI) [Ratio] 36.04 kg/m2 Valerie Gruber TEXTILE CONSERVATOR.ATHLETIC EVENTS SCORER Work Phone: [facility] 06-05-2024 16:41-0400 Body temperature 96.6 [degF] Valerie Gruber TEXTILE CONSERVATOR.ATHLETIC EVENTS SCORER Work Phone: [facility] 06-05-2024 16:41-0400 Body weight 110.7 kg Valerie Gruber TEXTILE CONSERVATOR.ATHLETIC EVENTS SCORER Work Phone: [facility] 06-05-2024 16:41-0400 Diastolic blood pressure 70 mm[Hg] Valerie Gruber TEXTILE CONSERVATOR.ATHLETIC EVENTS SCORER Work Phone: [facility] 06-05-2024 16:41-0400 Heart rate 75 /min Valerie Gruber TEXTILE CONSERVATOR.ATHLETIC EVENTS SCORER Work Phone: [facility] 06-05-2024 16:41-0400 Respiratory rate 19 /min Valerie Gruber TEXTILE CONSERVATOR.ATHLETIC EVENTS SCORER Work Phone: [facility] 06-05-2024 16:41-0400 SaO2% (BldA) [Mass fraction] 97 % Valerie Gruber TEXTILE CONSERVATOR.ATHLETIC EVENTS SCORER Work Phone: [facility] 08-21-2024 16:41-0400 Systolic blood pressure 140 mm[Hg] Valeriebrett Gruber TEXTILE CONSERVATOR.ATHLETIC EVENTS SCORER Work Phone: [facility] 05-06-2024 17:38-0400 Body height 175.3 cm Corrina Lennon TEXTILE CONSERVATOR.ATHLETIC EVENTS SCORER Work Phone: [facility] 05-06-2024 17:38-0400 Body mass index (BMI) [Ratio] 37.95 kg/m2 Corrina Haagen TEXTILE CONSERVATOR.ATHLETIC EVENTS SCORER Work Phone: [facility] 05-06-2024 17:38-0400 Body weight 116.57 kg Corrina Angagen TEXTILE CONSERVATOR.ATHLETIC EVENTS SCORER Work Phone: [facility] 05-06-2024 17:38-0400 Diastolic blood pressure 58 mm[Hg] Corrina Angagen TEXTILE CONSERVATOR.ATHLETIC EVENTS SCORER Work Phone: [facility] 05-06-2024 17:38-0400 Heart rate 62 /min Corrina Lennon TEXTILE CONSERVATOR.ATHLETIC EVENTS SCORER Work Phone: [facility] 05-06-2024 17:38-0400 Respiratory rate 14 /min Corrina Lennon TEXTILE CONSERVATOR.ATHLETIC EVENTS SCORER Work Phone: [facility] 05-06-2024 17:38-0400 SaO2% (BldA) [Mass fraction] 89 % Corrina Lennon TEXTILE CONSERVATOR.ATHLETIC EVENTS SCORER Work Phone: [facility] 05-06-2024 17:38-0400 Systolic blood pressure 122 mm[Hg] Corrina Angagen TEXTILE CONSERVATOR.ATHLETIC EVENTS SCORER Work Phone: [facility] 04-08-2024 15:17-0400 Body mass index (BMI) [Ratio] 37.63 kg/m2 Corrina Haagen TEXTILE CONSERVATOR.ATHLETIC EVENTS SCORER Work Phone: [facility] 04-08-2024 15:17-0400 Body weight 115.58 kg Corrina Lennon TEXTILE CONSERVATOR.ATHLETIC EVENTS SCORER Work Phone: [facility] 04-08-2024 14:55-0400 Diastolic blood pressure 58 mm[Hg] Corrina Haagen TEXTILE CONSERVATOR.ATHLETIC EVENTS SCORER Work Phone: [facility] 04-08-2024 14:55-0400 Heart rate 72 /min Corrina Haagen TEXTILE CONSERVATOR.ATHLETIC EVENTS SCORER Work Phone: [facility] 04-08-2024 14:55-0400 Respiratory rate 16 /min Corrina Savagen TEXTILE CONSERVATOR.ATHLETIC EVENTS SCORER Work Phone: [facility] 04-08-2024 14:55-0400 Systolic blood pressure 102 mm[Hg] Corrina Haagen TEXTILE CONSERVATOR.ATHLETIC EVENTS SCORER Work Phone: [facility] 03-26-2024 16:33-0400 Body height 175.3 cm Guanakito Reno MD Work Phone: [facility] 03-26-2024 16:33-0400 Body mass index (BMI) [Ratio] 37.07 kg/m2 Guanakito Reno MD Work Phone: [facility] 03-26-2024 16:33-0400 Body weight 113.85 kg Guanakito Reno MD Work Phone: [facility] 03-26-2024 16:33-0400 Diastolic blood pressure 46 mm[Hg] Guanakito Reno MD Work Phone: [facility] 03-26-2024 16:33-0400 Heart rate 86 /min Guanakito Reno MD Work Phone: [facility] 03-26-2024 16:33-0400 SaO2% (BldA) [Mass fraction] 98 % Guanakito Reno MD Work Phone: [facility] 03-26-2024 16:33-0400 Systolic blood pressure 98 mm[Hg] Guanakito Reno MD Work Phone: [facility] 03-25-2024 14:52-0400 Body mass index (BMI) [Ratio] 37.21 kg/m2 Pam Reddy MD Work Phone: [facility] 03-25-2024 14:52-0400 Body weight 114.31 kg Pam Reddy MD Work Phone: [facility] 03-25-2024 14:52-0400 Diastolic blood pressure 69 mm[Hg] Pam Reddy MD Work Phone: [facility] 03-25-2024 14:52-0400 Heart rate 66 /min Pam Reddy MD Work Phone: [facility] 03-25-2024 14:52-0400 SaO2% (BldA) [Mass fraction] 96 % Pam Reddy MD Work Phone: [facility] 03-25-2024 14:52-0400 Systolic blood pressure 116 mm[Hg] Pam Reddy MD Work Phone: [facility] 12-22-2023 14:55-0500 Body temperature 97.81 [degF] Carolina Suppan TEXTILE CONSERVATOR.FEATHER BONER Work Phone: [facility] 12-22-2023 14:55-0500 Diastolic blood pressure 60 mm[Hg] Carolina Suppan TEXTILE CONSERVATOR.FEATHER BONER Work Phone: [facility] 12-22-2023 14:55-0500 Heart rate 76 /min Carolina Suppan TEXTILE CONSERVATOR.FEATHER BONER Work Phone: [facility] 12-22-2023 14:55-0500 Respiratory rate 18 /min Carolina Suppan TEXTILE CONSERVATOR.FEATHER BONER Work Phone: [facility] 12-22-2023 14:55-0500 SaO2% (BldA) [Mass fraction] 99 % Carolina Suppan TEXTILE CONSERVATOR.FEATHER BONER Work Phone: [facility] 12-22-2023 14:55-0500 Systolic blood pressure 122 mm[Hg] Carolina Suppan TEXTILE CONSERVATOR.FEATHER BONER Work Phone: [facility] 08-14-2023 13:24-0400 Body height 175.3 cm Guanakito Reno MD Work Phone: [facility] 08-14-2023 13:24-0400 Body weight 120.75 kg Guanakito Reno MD Work Phone: [facility] 08-14-2023 13:24-0400 Diastolic blood pressure 68 mm[Hg] Guanakito Reno MD Work Phone: [facility] 08-14-2023 13:24-0400 Heart rate 59 /min Guanakito Reno MD Work Phone: [facility] 08-14-2023 13:24-0400 SaO2% (BldA) [Mass fraction] 99 % Guanakito Reno MD Work Phone: [facility] 08-14-2023 13:24-0400 Systolic blood pressure 120 mm[Hg] Guanakito Reno MD Work Phone: [facility] 02-13-2023 14:39-0400 Body weight 119.75 kg Pam Reddy MD Work Phone: [facility] 02-13-2023 14:39-0400 Diastolic blood pressure 60 mm[Hg] Pam Reddy MD Work Phone: [facility] 02-13-2023 14:39-0400 Heart rate 78 /min Pam Reddy MD Work Phone: [facility] 02-13-2023 14:39-0400 SaO2% (BldA) [Mass fraction] 96 % Pam Reddy MD Work Phone: [facility] 02-13-2023 14:39-0400 Systolic blood pressure 110 mm[Hg] Pam Reddy MD Work Phone: [facility] 02-06-2023 15:29-0400 Body weight 118.39 kg Guanakito Reno MD Work Phone: [facility] 02-06-2023 15:29-0400 Diastolic blood pressure 58 mm[Hg] Guanakito eRno MD Work Phone: [facility] 02-06-2023 15:29-0400 Heart rate 76 /min Guanakito Reno MD Work Phone: [facility] 02-06-2023 15:29-0400 Respiratory rate 16 /min Guanakito Reno MD Work Phone: [facility] 02-06-2023 15:29-0400 SaO2% (BldA) [Mass fraction] 94 % Guanakito Reno MD Work Phone: [facility] 02-06-2023 15:29-0400 Systolic blood pressure 122 mm[Hg] Guanakito Reno MD Work Phone: [facility] 10-04-2022 10:38-0500 Body height 175.3 cm Alondra Prescott DO Work Phone: [facility] 10-04-2022 10:38-0500 Body weight 117.03 kg Alondra Prescott DO Work Phone: [facility] 10-04-2022 10:38-0500 Diastolic blood pressure 66 mm[Hg] Alondra Whalenle DO Work Phone: [facility] 10-04-2022 10:38-0500 Heart rate 57 /min Alondra Prescott DO Work Phone: [facility] 10-04-2022 10:38-0500 SaO2% (BldA) [Mass fraction] 100 % Alondra Prescott DO Work Phone: [facility] 10-04-2022 10:38-0500 Systolic blood pressure 122 mm[Hg] Alondra Prescott DO Work Phone: [facility] 08-15-2022 14:50-0400 Body height 175.3 cm Pam Reddy MD Work Phone: [facility] 08-15-2022 14:50-0400 Body weight 119.3 kg Pam Reddy MD Work Phone: [facility] 08-15-2022 14:50-0400 Diastolic blood pressure 62 mm[Hg] Pam Reddy MD Work Phone: [facility] 08-15-2022 14:50-0400 Heart rate 58 /min Pam Reddy MD Work Phone: [facility] 08-15-2022 14:50-0400 Respiratory rate 18 /min Pam Reddy MD Work Phone: [facility] 08-15-2022 14:50-0400 SaO2% (BldA) [Mass fraction] 98 % Pam Reddy MD Work Phone: [facility] 08-15-2022 14:50-0400 Systolic blood pressure 114 mm[Hg] Pam Reddy MD Work Phone: [facility] 01-19-2022 15:14-0400 Body weight 121.11 kg Guanakito Reno MD Work Phone: [facility] 01-19-2022 15:14-0400 Diastolic blood pressure 68 mm[Hg] Guanakito Reno MD Work Phone: [facility] 01-19-2022 15:14-0400 Heart rate 60 /min Guanakito Reno MD Work Phone: [facility] 01-19-2022 15:14-0400 Systolic blood pressure 124 mm[Hg] Guanakito Reno MD Work Phone: [facility] Encounters Encounter Date Encounter Type Care Provider Facility Start: 05-15-2025 ambulatory Josafat Simon OLS Facil ity:[facility] Start: 05-13-2025 ambulatory Josafat Simon OLS Facil ity:[facility] Start: 05-08-2025 ambulatory Josafat Alfred OLS Facil ity:[facility] Start: 05-06-2025 ambulatory Josafat Alfred OLS Facil ity:[facility] Start: 05-02-2025 End: 05-02-[address] Burt Zamora MD -[facility] Start: 05-02-2025 End: 05-02-[address] Guanakito Reno MD Work Phone: [facility] Start: 05-01-2025 ambulatory Josafat Alfred OLS Facil ity:[facility] Start: 05-01-[address] Josafat juarez MD -[facility] Start: 04-29-2025 ambulatory Josafat Simon OLS Facil ity:[facility] Start: 04-29-[address] Josafat juarez MD -[facility] Start: 04-24-2025 ambulatory Josafat Simon OLS Facil ity:[facility] Start: 04-24-[address] Josafat juarez MD -[facility] Start: 04-17-2025 ambulatory Guanakito [place] Facility:[facility] Start: 04-17-[address] Bianka Gonzalez MD -[facility] Start: 04-15-2025 End: 04-15-2025 Telephone encounter Twin Kelsey [facility] Tele[facility] Comment on above: Anticoagulation Tele phone Fu (Home INR result) Start: 04-14-2025 End: 04-14-2025 Telephone encounter Guanakito Reno MD Work Phone: [facility] Comment on above: Patient Question Start: 04-14-2025 [facility] Start: 04-14-[address] Josafat García MD -Physical Therapy Work Phone: Start: 04-08-2025 End: 04-08-2025 Refill Carolina A Margarita TEXTILE CONSERVATOR.ATHLETIC EVENTS SCORER Work Phone: [facility] Comment on above: Refill Request Start: 03-28-2025 End: 03-28-2025 Telephone encounter Guanakito Reno MD Work Phone: [facility] Comment on above: Faxed to [facility] Start: 03-24-2025 End: 03-24-2025 Telephone encounter Alejandro Molina [facility] Tele[facility] Comment on above: Anticoagulation Tele phone Fu (Home INR Result ) Start: 03-07-2025 End: 03-07-[address] Josafat García MD -[facility] Work Phone: Start: 03-07-2025 End: 03-07-2025 ambulatory Josafat García Facility:[facility] Start: 03-06-2025 End: 03-06-2025 ambulatory CAROLINA LANDEROS Facility:[facility] Start: 03-05-2025 End: 03-06-2025 Emergency department patient visit KEDAR HERNANDEZ Facility:[facility] Start: 02-20-2025 End: 02-20-2025 Telephone encounter Jimmy Carrizales [facility] Comment on above: Anticoagulation Tele phone Fu (Home INR) Start: 01-31-2025 End: 01-31-2025 Telephone encounter Kamran Ayon [facility] Comment on above: Anticoagulation Tele phone Fu (INR Home Test Result) Start: 01-23-2025 End: 03-25-2025 Follow-up encounter Carolina Landeros APRN.CNP Work Phone: [facility] Start: 01-21-2025 End: 01-21-2025 ambulatory CAROLINA SUPPJEREMY Facility:[facility] Start: 01-21-2025 End: 01-21-2025 Office outpatient visit 25 minutes Carolina Landeros APRN.KOURTNEY Work Phone: [facility] Comment on above: Hyperlipidemia, mixe d [...] (HCC); Chronic renal disease, stage IV (HCC); FCI (current) use of anticoagulants; Obesity, Class II, BMI 35-39.9; Viral conjunctivitis; Seasonal allergic rhinitis, unspecified trigger; Bilateral impacted cerumen Start: 01-08-2025 End: 01-15-2025 Telephone encounter Ruthie Cuevas [facility] Comment on above: Anticoagulation Foll ow Up (Home INR result ) Start: 01-07-2025 End: 01-08-2025 Refill Corrina Lennon APRN.CNP Work Phone: [facility] Comment on above: Refill Request Start: 12-30-2024 End: 12-30-2024 Telephone encounter Twin Cole [facility] Comment on above: Anticoagulation Tele phone Fu (Home INR result) Start: 12-11-2024 End: 12-11-2024 Telephone encounter Jimmy Carrizales [facility] Comment on above: Anticoagulation Tele phone Fu (Home INR) Start: 11-26-2024 End: 11-26-2024 Telephone encounter Twin Cole [facility] Comment on above: Anticoagulation Tele phone Fu (Home INR result) Start: 10-28-2024 End: 10-28-2024 Telephone encounter Alejandro Ulysses [facility] Comment on above: Anticoagulation Tele phone Fu (Home INR Result ) Start: 10-21-2024 End: 10-21-2024 Telephone encounter Guanakito Reno MD Work Phone: [facility] [place] Comment on above: Patient Update; Rozina ent Question Start: 10-01-2024 End: 10-01-2024 Telephone encounter Twin Cole [facility] Comment on above: Anticoagulation Tele phone Fu (Home INR result) Start: 08-26-2024 End: 08-26-2024 Telephone encounter Alejandro Ulysses [facility] Comment on above: Anticoagulation Tele phone Fu (Home INR Result ) Start: 08-19-2024 End: 08-19-2024 ambulatory Melania Galindo RN [employer] Management Comment on above: ACNiels SMITH RN ( Medication Adherence Review per Request of Payor ) Start: 08-16-2024 End: 08-16-2024 Telephone encounter [facility] Start: 08-06-2024 End: 08-06-2024 Office outpatient new 45 minutes Laura Iraheta MD Work Phone: [facility] Comment on above: Bilateral carotid ar jeanne stenosis (Primary Dx); History of carotid endarterectomy Start: 08-06-2024 End: 08-07-2024 ambulatory LAURA IRAHETA Facility:[facility] Start: 07-30-2024 End: 07-30-2024 ambulatory Josselyn Mayer TEXTILE CONSERVATOR.ATHLETIC EVENTS SCORER Work Phone: [facility] [place] Start: 07-30-2024 End: 08-01-2024 Telephone encounter Josselyn Mayer APRN.ATHLETIC EVENTS SCORER Work Phone: [facility] [place] Comment on above: 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 - O ther Start: 07-25-2024 End: 07-26-2024 Telephone encounter Jimmy Carrizales [facility] Comment on above: Anticoagulation (Pat ient update) Start: 07-23-2024 End: 07-23-2024 ambulatory MAUSHAHEENLuba MAULIKFAVIAN PARKERVIRGILIO Facility:[facility] Start: 07-23-2024 End: 07-23-[address] (I-Stat) [facility] Start: 07-23-2024 End: 07-23-2024 Subsequent hospital visit by physician [facility] 1 (I-Stat) RADIO CT SCAN [facility] Comment on above: Nonrheumatic aortic valve stenosis [I35.0] Start: 07-22-2024 End: 07-22-2024 ambulatory VALERIE PIÑA Facility:[facility] Start: 07-15-2024 End: 07-15-2024 Orders Only Valerie Piña APRNAKREN Work Phone: [place] [facility] Draw Station Comment on above: Paroxysmal atrial fi brillation (HCC) (Primary Dx); Aortic valve stenosis, etiology of cardiac valve disease unspecified Nonrheumatic aortic valve stenosis (Primary Dx); Paroxysmal atrial fibrillation (HCC) Patient Update Results Start: 07-12-2024 End: 07-12-2024 Telephone encounter Guanakito Reno MD Work Phone: Internal Medicine [place] Start: 07-12-2024 End: 07-12-2024 ambulatory JOSSELYN MAYER Facility:[facility] Start: 07-12-2024 End: 07-15-2024 Patient encounter procedure Guanakito Reno MD Work Phone: [facility] [place] Comment on above: Essential hypertensi on (Primary [...] disease, stage IV (HCC); Mixed dementia (HCC); FCI (current) use of anticoagulants; Need for vaccination Essential hypertensi on (Primary Dx) Start: 07-10-2024 ambulatory JOSSELYN Espino ty:[facility] Start: 07-10-2024 End: 07-10-2024 Subsequent hospital visit by physician Ekg/Holter/Event Monitor [facility] CARDIAC TESTING Comment on above: Nonrheumatic aortic valve stenosis [I35.0] Start: 07-10-2024 End: 07-10-2024 Patient encounter procedure Cal Thacker MD Work Phone: [facility] Comment on above: Severe [...] encounter status Pam Reddy MD Work Phone: [facility] Work Phone: Start: 07-10-2024 Encounter for preprocedural cardiovascular examination PAM REDDY [facility] Start: 07-10-2024 End: 07-10-2024 ambulatory GUANAKITO RENO Facility:[facility] Start: 07-05-2024 End: 07-05-2024 Telephone encounter Annamarie Garcia [facility] Comment on above: Anticoagulation Tele phone Fu Start: 2024 End: 2024 Telephone encounter Guanakito Reno MD Work Phone: Pulmonology [facility] Start: 06-18-2024 End: 06-18-2024 Telephone encounter Jimmy Carrizales [facility] Tele[facility] Comment on above: Anticoagulation Tele phone Fu (Home INR) Start: 06-06-2024 End: 06-06-2024 ambulatory CAROLINA LANDEROS Facility:[facility] Start: 06-06-2024 End: 06-06-2024 Office outpatient visit 15 minutes Carolina Landeros TEXTILE CONSERVATOR.ATHLETIC EVENTS SCORER Work Phone: [facility] [place] Comment on above: Aortic valve stenosi s, etiology of cardiac valve disease unspecified (Primary Dx); Hypertensive kidney disease with stage 3b chronic kidney disease (HCC); Paroxysmal atrial fibrillation (HCC); Benign prostatic hyperplasia without lower urinary tract symptoms; Anemia, unspecified type Start: 06-05-2024 End: 06-05-2024 ambulatory GUANAKITO RENO Facility:[facility] Start: 06-05-2024 End: 06-05-2024 Patient encounter procedure Valerie Gruber APRN.CNP Work Phone: [facility] Comment on above: Blood pressure check (Primary Dx); Leg swelling Start: 06-05-2024 End: 06-05-2024 Patient encounter status Valerie Gruber APRN.CNP Work Phone: [facility] Work Phone: Start: 06-03-2024 End: 06-05-2024 ambulatory Guanakito Reno MD Work Phone: [facility] [place] Comment on above: Water pill/ kidney d r # Start: 05-20-2024 Telephone encounter Josselyn Mayer APRN.CNP Work Phone: [facility] Cardiology [place] Comment on above: 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 - O ther Results Start: 05-17-2024 Telephone encounter Dorothy S[facility] Comment on above: Anticoagulation Tele phone Fu Start: 05-06-2024 End: 05-06-2024 Office outpatient visit 15 minutes Corrina Lennon APRN.KOURTNEY Work Phone: [facility] [place] Comment on above: Essential hypertensi on (Primary Dx); Hypertensive kidney disease with stage 3 chronic kidney disease, unspecified whether stage 3a or 3b CKD (HCC); Anemia, unspecified type Start: 05-02-2024 End: 05-02-2024 Subsequent hospital visit by physician [facility] Work Phone: Radiology Comment on above: Renal insufficiency [N28.9] Start: 04-24-2024 Telephone encounter [facility] Comment on above: Anticoagulation Tele phone Fu (Home INR) Start: 04-19-2024 Telephone encounter Guanakito Reno MD Work Phone: Family [facility] [place] Comment on above: Results Start: 04-08-2024 End: 04-08-2024 Office outpatient visit 25 minutes Corrina Lennon APRN.CNP Work Phone: [facility] [place] Comment on above: Essential hypertensi [...] Telephone encounter Guanakito Reno MD Work Phone: [facility] [place] Comment on above: Results Start: 04-04-2024 Telephone encounter Jimmy Carrizales [facility] Comment on above: Anticoagulation Tele phone Fu (Home INR) Start: 03-26-2024 End: 03-26-2024 Patient encounter procedure Guanakito Reno MD Work Phone: [facility] Comment on above: Essential hypertensi on [...] or 3b CKD (HCC); Mixed dementia (HCC); 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; Obesity, Class II, [...] payor) Start: 03-07-2024 Telephone encounter Jimmy Carrizales [facility] Comment on above: Anticoagulation Tele phone Fu Start: 02-14-2024 Telephone encounter [facility] Comment on above: Anticoagulation Tele phone Fu (Home INR results ) Start: 01-17-2024 Refill Guanakito Reno MD Work Phone: [facility] [place] Comment on above: Refill Request requesting medicatio n on list Start: 01-15-2024 Telephone encounter [facility] Comment on above: Anticoagulation Tele phone Fu (Home INR Result ) Start: 12-22-2023 End: 12-22-2023 Office outpatient visit 15 minutes Carolina Landeros APRN.FEATHER BONER Work Phone: [facility] [place] Comment on above: Abrasion of arm, lef t, initial encounter (Primary Dx); Chronic insomnia Start: 12-21-2023 ambulatory Guanakito Reno MD Work Phone: [facility] [place] Comment on above: skin laceration Start: 12-21-2023 Telephone encounter Jimmy Carrizales [facility] Comment on above: Anticoagulation [...] payer) Start: 08-22-2023 Telephone encounter Twin [facility] Comment on above: Anticoagulation Tele phone Fu (Home INR result) Start: 08-16-2023 Telephone encounter Guanakito Reno MD Work Phone: [facility] [place] Comment on above: Results Start: 08-15-2023 Telephone encounter Guanakito Reno MD Work Phone: [facility] [place] Comment on above: Results Start: 08-14-2023 End: 08-14-2023 Patient encounter procedure Guanakito Reno MD Work Phone: [facility] [place] Comment on above: Onychomycosis (Prima ry Dx); [...] 07-04-2023 Refill Guanakito Reno MD Work Phone: [facility] [place] Comment on above: Refill Request Start: 2023 ambulatory Lizette Cardenas RN [facility] Comment on above: QI SMITH RN ( Medication Adherence review per request of payer) Start: 05-22-2023 Telephone encounter [facility] Comment on above: Anticoagulation Tele phone Fu (Home INR Result ) Start: 04-24-2023 Telephone encounter [facility] Comment on above: Anticoagulation Tele phone Fu (Home INR Result ) Start: 04-19-2023 Refill Guanakito Reno MD Work Phone: [facility] [place] Comment on above: Refill Request Start: 03-28-2023 Telephone encounter Twin Jonas [facility]acy Ambulatory Telemanagement Comment on above: Anticoagulation Tele phone Fu (Home INR result) Start: 02-13-2023 End: 02-13-2023 Patient encounter procedure Pam Reddy MD Work Phone: Cardiology Comment on above: Syncope, unspecified syncope type (Primary Dx); Aortic valve disorder Start: 02-06-2023 End: 02-06-2023 Patient encounter procedure Guanakito Reno MD Work Phone: [facility] Comment on above: Essential hypertensi on [...] 01-16-2023 Refill Guanakito Reno MD Work Phone: [facility] Comment on above: Refill Request Start: [...] Result ) Start: 11-18-2022 Telephone encounter Kamran Jonas [facility]acy Ambulatory Telemanagement Comment on above: Anticoagulation Tele phone Fu Start: 11-04-2022 Telephone encounter Kamran Jonas harmacy Ambulatory Telemanagement Comment on above: Anticoagulation Tele phone Fu (INR Home Test Result) Start: 11-01-2022 Telephone encounter Twin Jonas harmacy Ambulatory Telemanagement Comment on above: Anticoagulation [...] 09-23-2022 Refill Guanakito Reno MD Work Phone: [facility] Comment on above: Orders; Refill Reque st Start: 09-21-2022 Telephone encounter Ruthie Cuevas R [facility] Ambulatory Telemanagement Comment on above: Anticoagulation Tele phone Fu (Home INR result expected) Start: 09-07-2022 ambulatory Lizette Cardenas [facility] Comment on above: QI SMITH RN ( Medication Adherence review at request of payer) Start: 08-22-2022 Telephone encounter [facility] Comment on above: Anticoagulation (INR result) Start: 08-15-2022 End: 08-15-2022 Patient encounter procedure Pam Reddy MD Work Phone: Cardiology Comment on above: Obesity, Class II, B OR 35-39.9 (Primary Dx); Paroxysmal atrial fibrillation (HCC); Nonrheumatic aortic valve stenosis; Aortic valve disorder Start: 08-01-2022 Telephone encounter [facility] Comment on above: Anticoagulation Tele phone Fu (Home INR Result) Start: 07-22-2022 Refill Guanakito Reno MD Work Phone: [facility] Comment on above: Refill Request Start: 2022 Telephone encounter Alejandro Molina [facility] Ambulatory Telemanagement Comment on above: Anticoagulation (INR result ) Start: 06-14-2022 ambulatory Nirmala Lim [facility] Comment on above: Population Health Na vigation Outreach ([facility] care gaps) Start: 06-06-2022 Telephone encounter [facility] Comment on above: Anticoagulation (Gabrielle e INR) Start: 05-19-2022 Refill Guanakito Reno MD Work Phone: [facility] Comment on above: Refill Request Start: 05-16-2022 Telephone encounter Alejandro Molina R [facility] Ambulatory Telemanagement Comment on above: Anticoagulation Tele phone Fu (Home INR Result) Start: 04-25-2022 Telephone encounter Val Oliver [facility] Comment on above: Anticoagulation Tele phone Fu (Home INR ) Start: 04-04-2022 Telephone encounter [facility] Comment on above: Anticoagulation Tele phone Fu (Home INR Result) Start: 03-23-2022 Telephone encounter Ruthie Cuevas R [facility] Ambulatory Telemanagement Comment on above: Anticoagulation Tele phone Fu (Home INR result expected) Start: 03-16-2022 Telephone encounter Alondra Luba Prescott DO Work Phone: Vascular Surgery Comment on above: Appointment (testing needed?) Start: 03-09-2022 Telephone encounter Ruthie Cuevas [facility] Tele[facility] Comment on above: Anticoagulation Tele phone Fu (Home INR result ) Start: 02-17-2022 Telephone encounter Jazmyn Garcia [facility] Ambulatory Telemanagement Comment on above: Anticoagulation Tele phone Fu Start: 02-08-2022 Telephone encounter Twin [facility] Comment on above: Anticoagulation Tele phone Fu (Home INR result) Start: 01-25-2022 Telephone encounter Twin Cole [facility] Ambulatory Telemanagement Comment on above: Anticoagulation Tele phone Fu (Home INR result) Start: 01-19-2022 End: 01-19-2022 Patient encounter procedure Guanakito Reno MD Work Phone: [facility] Comment on above: Essential hypertensi on [...] Fu Start: 06-07-2018 Ambulatory VIPIN CARDONA Facility :[facility] Start: 11-24-2017 End: 11-24-2017 Ambulatory VIPIN CARDONA Facility:[facility] Procedures Date Procedure Procedure Detail Performing Clinician Start: 07-12-2024 PFIZER-BIONTECH COVI D-19 VACCINE AGE 12+ YR (COMIRNATY) [...] Phone: Start: 08-14-2023 PFIZER-BIONTECH COVI D-19 VACCINE (2022- SEASON) AGE 12+ YR Guanakito Reno MD [...] Velasquez with bovine patch angioplasty, 04/17/2014 @ [facility] History of carotid endarterectomy History of carotid endarterectomy Guanakito Reno MD Work Phone: History of carotid endarterectomy History of carotid endarterectomy Laura Iraheta MD Work Phone: Plan of Treatment Date Care Activity Detail Author Start: 04-22-2031 Urine microalbumin profile [facility] Start: 01-21-2026 Diabetic foot examination Diabetic Foot Exam [facility] Start: 01-21-2026 Hepatitis B surface antibody level LDL Cholesterol [facility] Start: 08-06-2025 End: 09-05-2025 US Carotid arteries - bilateral US CAROTID BILATERAL Radiology Routine Bilateral carotid artery stenosis History of carotid endarterectomy Expected: 08/06/2025 (Approximate), Expires: 09/05/2025 [facility] Work Phone: Comment on above: Expected: 08/06/2025 (Approximate), Expi res: 09/05/2025 Start: 07-23-2025 End: 07-23-2025 Patient encounter procedure 07/23/2025 3:20 PM EDT Office Visit [facility] [place] [address] [place] [id number] Gunaakito Reno MD [address] [place] [address] 6 month exam [facility] [place] Comment on above: 6 month exam Start: 07-23-2025 Hemoglobin A1c measurement HbA1C [facility] Start: 07-12-2025 Covid-19 Vaccine ( season) Covid-19 Vaccine ( season) [facility] Comment on above: Postponed from 01/09/2025 (Declined at t his time) Start: 07-12-2025 Hepatitis B surface antibody level LDL Cholesterol [facility] Start: 06-16-2025 Influenza vaccination Influenza Vaccine (#1) [facility] Start: 05-06-2025 Annual PCP Team Chronic Disease Visit Annual PCP Team Chronic Disease Visit [facility] Start: 05-06-2025 BP Controlled (<130/80) BP Controlled (<130/80) [facility] Start: 05-02-2025 Plain X-ray of shoulder Shoulder min 2 Views [facility] Start: 05-02-2025 XR Shoulder GE 2 Views [facility] Start: 04-19-2025 Complete blood count Hemoglobin/Hematocrit [facility] Start: 04-19-2025 Creatinine measurement Serum Creatinine [facility] Start: 04-08-2025 Annual PCP Team Chronic Disease Visit Annual PCP Team Chronic Disease Visit [facility] Start: 04-08-2025 BP Controlled (<130/80) BP Controlled (<130/80) [facility] Start: 04-04-2025 Complete blood count Hemoglobin/Hematocrit [facility] Start: 04-04-2025 Creatinine measurement Serum Creatinine [facility] Start: 03-26-2025 Annual PCP Team Chronic Disease Visit Annual PCP Team Chronic Disease Visit [facility] Start: 03-26-2025 BP Controlled (<130/80) BP Controlled (<130/80) [facility] Start: 03-26-2025 Covid-19 Vaccine () Covid-19 Vaccine () [facility] Comment on above: Postponed from 12/14/2023 (Declined at t his time) Start: 03-26-2025 Shingrix Vaccine (1 of 2) Shingrix Vaccine (1 of 2) [facility] Comment on above: Postponed from 1993 (Declined at t his time) Start: 03-25-2025 BP Controlled (<130/80) BP Controlled (<130/80) [facility] Start: 03-25-2025 Complete blood count Hemoglobin/Hematocrit [facility] Start: 03-25-2025 Creatinine measurement Serum Creatinine [facility] Start: 01-21-2025 End: 01-21-2025 Patient encounter procedure 01/21/2025 3:40 PM EDT Office Visit [facility] Carole [address] [place] [address] Carolina Landeros, TEXTILE CONSERVATOR.ATHLETIC EVENTS SCORER [address] [place] [address] 6 month follow up [facility] Comment on above: 6 month follow up Start: 01-21-2025 End: 04-22-2025 CBC W Auto Differential panel - Blood [facility] Comment on above: Expected: 01/21/2025, Expires: Start: 01-21-2025 End: 04-22-2025 Cobalamin (Vitamin B12) [Mass/volume] in Serum or Plasma [facility] Comment on above: Expected: 01/21/2025, Expires: Start: 01-21-2025 End: 04-22-2025 Comprehensive metabolic 2000 panel - Serum or Plasma [facility] Work Phone: Comment on above: Expected: 01/21/2025, Expires: Start: 01-21-2025 End: 04-22-2025 Hemoglobin A1c in Blood [facility] Comment on above: Expected: 01/21/2025, Expires: Start: 01-21-2025 End: 04-22-2025 LIPID PANEL, NONFASTING [facility] Comment on above: Expected: 01/21/2025, Expires: Start: 01-21-2025 End: 04-22-2025 Magnesium [Mass/volume] in Serum or Plasma [facility] Comment on above: Expected: 01/21/2025, Expires: Start: 01-13-2025 End: 01-13-2025 Patient encounter procedure 01/13/2025 10:40 AM EDT Office Visit Family [facility] [address] [place] [address] Guanakito Reno MD [address] [place] [address] 6 month follow up [facility] Comment on above: 6 month follow up Start: 01-09-2025 Hemoglobin A1c measurement HbA1C [facility] Start: 12-21-2024 BP Controlled (<130/80) BP Controlled (<130/80) [facility] Start: 10-16-2024 Advance Directive Discussion Advance Directive Discussion [facility] Start: 10-16-2024 Medicare Advantage Annual Wellness Visit Medicare Advantage Annual Wellness Visit [facility] Start: 10-04-2024 Hemoglobin A1c measurement HbA1C [facility] Start: 08-14-2024 3 comp foot exam completed Diabetic Foot Exam [facility] Start: 08-14-2024 Annual PCP Team Chronic Disease Visit Annual PCP Team Chronic Disease Visit [facility] Start: 08-14-2024 BP Controlled (<130/80) BP Controlled (<130/80) [facility] Start: 08-14-2024 Complete blood count Hemoglobin/Hematocrit [facility] Start: 08-14-2024 Creatinine measurement Serum Creatinine [facility] Start: 08-14-2024 Diabetic foot examination Diabetic Foot Exam [facility] Start: 08-14-2024 Hemoglobin/Hematocrit Hemoglobin/Hematocrit [facility] Start: 08-14-2024 Hepatitis B surface antibody level LDL Cholesterol [facility] Start: 08-14-2024 Hepatitis B Vaccine (1 of 3 - Risk 3-dose series) Hepatitis B Vaccine (1 of 3 - Risk 3-dose series) [facility] Comment on above: Postponed from 2003 (Declined at t his time) Start: 08-14-2024 RSV Vaccine (1 - 1-dose 60+ series) RSV Vaccine (1 - 1-dose 60+ series) [facility] Comment on above: Postponed from 2003 (Declined at t his time) Start: 08-14-2024 RSV Vaccine (1 - 1-dose 75+ series) RSV Vaccine (1 - 1-dose 75+ series) [facility] Comment on above: Postponed from 2018 (Declined at t his time) Start: 08-14-2024 Serum Creatinine Serum Creatinine [facility] Start: 08-06-2024 End: 08-06-2024 Patient encounter procedure 08/06/2024 1:00 PM EDT Office Visit [facility] [address] [place] [address] Laura Iraheta MD [address] [facility] [address] [place] [address] Referral from Josselyn Mayer - carotid stenosis 05/02/24 Carotid US [facility] Comment on above: Referral from Josselyn Mayer - carotid s tenosis 05/02/24 Carotid US Start: 07-29-2024 End: 07-29-2024 ambulatory 07/29/2024 11:15 AM EDT Results Only Carole Grubbs [facility] [address] [place] [address] Carole Robertswn [facility] Start: 07-23-2024 End: 07-23-2024 Admission to same day surgery center 07/23/2024 10:00 AM EDT - 07/23/2024 11:30 AM EDT Surgery [facility] [address] [place] [address] Pam Reddy MD [address], [address] [place] [address] (Fax) CORONARY CATH RIGHT/LEFT HEART ANGIO INTRAPROCEDURAL INJECT IMAGING SUPERVISIO/INTERPRETATIO N [facility] Comment on above: CORONARY CATH RIGHT/LEFT HEART ANGIO INT RAPROCEDURAL INJECT IMAGING SUPERVISIO/INTERPRETATION Start: 07-23-2024 End: 07-23-2024 R & l hrt cath winjx hrt art& l ventr img CORONARY CATH RIGHT/LEFT HEART ANGIO INTRAPROCEDURAL INJECT IMAGING SUPERVISIO/INTERPRETATIO N Valvular heart disease 07/23/2024 10:00 AM EDT [facility] Start: 07-23-2024 Subsequent hospital visit by physician 07/23/2024 10:00 AM EDT Hospital Encounter [facility] [address] [place] [address] Pam Reddy MD [address], [address] [place] [address] Valvular heart disease [I38] [facility] Comment on above: Valvular heart disease [I38] Start: 07-23-2024 End: 07-23-2024 Patient encounter procedure 07/23/2024 7:30 AM EDT Appointment RADIO CT SCAN [facility] [address] [place] [address] 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 [...] atrial fibrillation (HCC) Expected: 07/15/2024, Expires: 10/14/2024 [facility] Work Phone: Comment on above: Expected: 07/15/2024, Expires: Start: 07-12-2024 End: 10-11-2024 CBC W Auto Differential panel - Blood [facility] Comment on above: Expected: 07/12/2024, Expires: Start: 07-12-2024 End: 10-11-2024 Comprehensive metabolic 2000 panel - Serum or Plasma [facility] Comment on above: Expected: 07/12/2024, Expires: Start: 07-12-2024 End: 10-11-2024 Hemoglobin A1c in Blood [facility] Work Phone: Comment on above: Expected: 07/12/2024, Expires: Start: 07-12-2024 End: 10-11-2024 LIPID PANEL, NONFASTING [facility] Comment on above: Expected: 07/12/2024, Expires: Start: 07-12-2024 End: 07-12-2024 Patient encounter procedure 07/12/2024 11:20 AM EDT Office Visit Family [facility] [address] [place], [place] [address] Guanakito Reno MD [address] [place], [place] [id number] 2 month follow up- stool sample,kidney and meds Family [facility] Comment on above: 2 month follow up- stool sample,kidney a nd meds Start: 07-10-2024 End: 10-09-2024 Basic metabolic 2000 panel - Serum or Plasma BASIC METABOLIC PANEL Lab Routine Nonrheumatic aortic valve stenosis Expected: 07/10/2024, Expires: 10/09/2024 [facility] Comment on above: Expected: 07/10/2024, Expires: Start: 07-10-2024 End: 10-09-2024 CBC panel - Blood by Automated count COMPLETE BLOOD COUNT Lab Routine Nonrheumatic aortic valve stenosis Expected: 07/10/2024, Expires: 10/09/2024 [facility] Comment on above: Expected: 07/10/2024, Expires: Start: 07-10-2024 End: 10-09-2024 Natriuretic peptide.B prohormone N-Terminal [Mass/volume] in Serum or Plasma NT PRO BNP Lab Routine Nonrheumatic aortic valve stenosis Dyspnea on exertion Expected: 07/10/2024, Expires: 10/09/2024 [facility] Comment on above: Expected: 07/10/2024, Expires: Start: 07-10-2024 End: 10-09-2024 PT panel - Platelet poor plasma by Coagulation assay PROTHROMBIN TIME Lab Routine Nonrheumatic aortic valve stenosis Expected: 07/10/2024, Expires: 10/09/2024 [facility] Comment on above: Expected: 07/10/2024, Expires: Start: 07-10-2024 End: 07-10-2024 Patient encounter procedure [facility] Comment on above: Valve Clinic- Initial Visit- 5M Walk,EKG ,KCCQ Start: 06-16-2024 Covid-19 Vaccine ( season) Covid-19 Vaccine ( season) [facility] Start: 06-16-2024 Covid-19 Vaccine ( season) Covid-19 Vaccine ( season) [facility] Start: 06-16-2024 Influenza vaccination Influenza Vaccine (#1) [facility] Start: 06-06-2024 End: 06-06-2024 Patient encounter procedure 06/06/2024 11:20 AM EDT Office Visit Family Medicine [facility] [address] [facility] [place] [place] [id number] Carolina Landeros APRN.ATHLETIC EVENTS SCORER [address] [place], [place] [id number] Urgent care follow up [facility] Comment on above: Urgent care follow up Start: 05-06-2024 End: 05-06-2024 Patient encounter procedure 05/06/2024 5:40 PM EDT Office Visit [facility] [address] [facility] [place] [address] Corrina Lennon APRN.ATHLETIC EVENTS SCORER [address] [place] [address] 1 month follow up [facility] Comment on above: 1 month follow up Start: 05-02-2024 End: 05-02-2024 Patient encounter procedure Radiology Comment on above: Renal insufficiency [N28.9] History of carotid e ndarterectomy [Z98.890] Syncope, unspecified syncope type [R55]; Aortic valve disorder [I35.9] Start: 04-08-2024 End: 04-08-2024 Patient encounter procedure 04/08/2024 3:00 PM EDT Office Visit [facility] [address] [place] [address] Corrina Lennon APRN.ATHLETIC EVENTS SCORER [address] [place] [address] 2 w f/u [facility] Comment on above: 2 w f/u Start: 04-08-2024 End: 03-25-2025 Echocardiography ECHO Cardiology Routine Syncope, unspecified syncope type Aortic valve disorder Expected: 04/08/2024, Expires: 03/25/2025 [facility] Comment on above: Expected: 04/08/2024, Expires: 5 Start: 04-05-2024 End: 07-05-2024 Basic metabolic 2000 panel - Serum or Plasma BASIC METABOLIC PANEL Lab Routine CKD (chronic kidney disease) stage 4, 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/min ([facility]) Anemia, unspecified type Expected: 04/05/2024, Expires: 07/05/2024 [facility] Comment on above: Expected: 04/05/2024, Expires: 4 Start: 04-05-2024 End: 07-05-2024 CBC W Auto Differential panel - Blood COMPLETE BLOOD COUNT AND DIFFERENTIAL Lab Routine CKD (chronic kidney disease) stage 4, 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/min (HCC) Anemia, unspecified type Expected: 04/05/2024, Expires: 07/05/2024 [facility] Comment on above: Expected: 04/05/2024, Expires: 4 Start: 03-26-2024 End: 03-26-2024 Patient encounter procedure 03/26/2024 4:40 PM EDT Office Visit [facility] [address] [facility] [place] [address] Guanakito Reno MD [address] [place] [address] 3 month f/u [facility] Comment on above: 3 month f/u Start: 03-26-2024 End: 06-25-2024 Basic metabolic 2000 panel - Serum or Plasma BASIC METABOLIC PANEL Lab Routine Renal insufficiency Expected: 03/26/2024, Expires: 06/25/2024 [facility] Comment on above: Expected: 03/26/2024, Expires: 4 Start: 03-26-2024 End: 03-26-2025 CBC W Auto Differential panel - Blood COMPLETE BLOOD COUNT AND DIFFERENTIAL Lab Routine Anemia, unspecified type Expected: 03/26/2024, Expires: 03/26/2025 [facility] Comment on above: Expected: 03/26/2024, Expires: 5 Start: 03-26-2024 End: 03-26-2025 Cobalamin (Vitamin B12) [Mass/volume] in Serum or Plasma VITAMIN B12 Lab Routine Anemia, unspecified type Expected: 03/26/2024, Expires: 03/26/2025 [facility] Comment on above: Expected: 03/26/2024, Expires: Start: 03-26-2024 End: 03-26-2025 Ferritin [Mass/volume] in Serum or Plasma FERRITIN Lab Routine Anemia, unspecified type Expected: 03/26/2024, Expires: 03/26/2025 [facility] Comment on above: Expected: 03/26/2024, Expires: Start: 03-26-2024 End: 03-26-2025 Folate [Mass/volume] in Serum or Plasma FOLATE, SERUM Lab Routine Anemia, unspecified type Expected: 03/26/2024, Expires: 03/26/2025 [facility] Comment on above: Expected: 03/26/2024, Expires: Start: 03-26-2024 End: 06-25-2024 Hemoglobin A1c in Blood HEMOGLOBIN A1C Lab Routine Type 2 diabetes mellitus with stage 3 chronic kidney disease, without long-term current use of insulin, unspecified whether stage 3a or 3b CKD (HCC) Expected: 03/26/2024, Expires: 06/25/2024 [facility] Comment on above: Expected: 03/26/2024, Expires: Start: 03-26-2024 End: 03-26-2025 Hemoglobin.gastrointestin al.lower [Presence] in Stool by Immunoassay IMMUNOCHEMICAL FECAL OCCULT BLOOD TEST Lab Routine Anemia, unspecified type Expected: 03/26/2024, Expires: 03/26/2025 [facility] Comment on above: Expected: 03/26/2024, Expires: 5 Start: 03-26-2024 End: 03-26-2025 Iron and Iron binding capacity panel - Serum or Plasma IRON AND TIBC Lab Routine Anemia, unspecified type Expected: 03/26/2024, Expires: 03/26/2025 [facility] Comment on above: Expected: 03/26/2024, Expires: Start: 03-25-2024 End: 03-25-2024 Patient encounter procedure 03/25/2024 2:40 PM EDT Office Visit Cardiology [address] [id number] Pam Reddy MD [address], [address] [place] [address] 1 yr f/u Cardiology Comment on above: 1 yr f/u Start: 02-14-2024 BP CONTROLLED (<130/80) BP CONTROLLED (<130/80) [facility] Start: 02-13-2024 Hemoglobin A1c measurement HbA1C [facility] Start: 02-13-2024 Hemoglobin A1c/Hemoglobin.total in Blood HbA1C [facility] Start: 02-07-2024 3 comp foot exam completed DIABETIC FOOT EXAM [facility] Start: 02-07-2024 ANNUAL PCP TEAM CHRONIC DISEASE VISIT ANNUAL PCP TEAM CHRONIC DISEASE VISIT [facility] Start: 02-07-2024 BP CONTROLLED (<130/80) BP CONTROLLED (<130/80) [facility] Start: 02-07-2024 SHINGRIX VACCINE (1 of 2) SHINGRIX VACCINE (1 of 2) [facility] Comment on above: Postponed from 1993 (Insurance Cov erage) Start: 12-14-2023 Covid-19 Vaccine () Covid-19 Vaccine () [facility] Start: 10-16-2023 Advance Directive Discussion Advance Directive Discussion [facility] Start: 10-04-2023 BP CONTROLLED (<130/80) BP CONTROLLED (<130/80) [facility] Start: 08-15-2023 End: 08-15-2024 Basic metabolic 2000 panel - Serum or Plasma BASIC METABOLIC PNL Lab Routine Renal insufficiency Expected: 08/15/2023, Expires: 08/15/2024 [facility] Work Phone: Comment on above: Expected: 08/15/2023, Expires: 4 Start: 08-15-2023 BP CONTROLLED (<130/80) BP CONTROLLED (<130/80) [facility] Start: 08-15-2023 End: 11-14-2023 Urinalysis complete panel - Urine URINALYSIS, WITH MICROSCOPIC Lab Routine Renal insufficiency Expected: 08/15/2023, Expires: 11/14/2023 [facility] Work Phone: Comment on above: Expected: 08/15/2023, Expires: 4 Start: 06-16-2023 Covid-19 Vaccine () Covid-19 Vaccine ( season) [facility] Start: 06-16-2023 Influenza vaccination [facility] Start: 06-08-2023 COVID-19 VACCINE (5 - Moderna series) COVID-19 VACCINE (5 - Moderna series) [facility] Start: 03-29-2023 BP CONTROLLED (<130/80) BP CONTROLLED (<130/80) [facility] Start: 02-20-2023 End: 02-14-2024 Echocardiography ECHO Cardiology Routine Syncope, unspecified syncope type Aortic valve disorder Expected: 02/20/2023, Expires: 02/14/2024 [facility] Work Phone: Comment on above: Expected: 02/20/2023, Expires: 4 Start: 02-06-2023 End: 04-08-2023 ALBUMIN/CREAT RATIO RND UR ALBUMIN/CREAT RATIO RND UR Lab Routine Type 2 diabetes mellitus with stage 3 chronic kidney disease, without long-term current use of insulin, unspecified whether stage 3a or 3b CKD (HCC) Expected: 02/06/2023, Expires: 04/08/2023 [facility] Work Phone: Comment on above: Expected: 02/06/2023, Expires: 3 Start: 02-06-2023 End: 04-08-2023 CBC W Auto Differential panel - Blood CBC + DIFF Lab Routine Type 2 diabetes mellitus with stage 3 chronic kidney disease, without long-term current use of insulin, unspecified whether stage 3a or 3b CKD (HCC) Expected: 02/06/2023, Expires: 04/08/2023 [facility] Work Phone: Comment on above: Expected: 02/06/2023, Expires: 3 Start: 02-06-2023 End: 04-08-2023 Comprehensive metabolic 2000 panel - Serum or Plasma COMP METABOLIC PANEL Lab Routine Type 2 diabetes mellitus with stage 3 chronic kidney disease, without long-term current use of insulin, unspecified whether stage 3a or 3b CKD (HCC) Expected: 02/06/2023, Expires: 04/08/2023 [facility] Work Phone: Comment on above: Expected: 02/06/2023, Expires: 3 Start: 02-06-2023 End: 04-08-2023 Hemoglobin A1c in Blood HGB A1C Lab Routine Type 2 diabetes mellitus with stage 3 chronic kidney disease, without long-term current use of insulin, unspecified whether stage 3a or 3b CKD (HCC) Expected: 02/06/2023, Expires: 04/08/2023 [facility] Work Phone: Comment on above: Expected: 02/06/2023, Expires: 3 Start: 02-06-2023 End: 04-08-2023 Lipid 1996 panel - Serum or Plasma LIPID PANEL BASIC Lab Routine Type 2 diabetes mellitus with stage 3 chronic kidney disease, without long-term current use of insulin, unspecified whether stage 3a or 3b CKD (HCC) Expected: 02/06/2023, Expires: 04/08/2023 [facility] Work Phone: Comment on above: Expected: 02/06/2023, Expires: 3 Start: 01-19-2023 ANNUAL PCP TEAM CHRONIC DISEASE VISIT ANNUAL PCP TEAM CHRONIC DISEASE VISIT [facility] Start: 01-19-2023 BP CONTROLLED (<130/80) BP CONTROLLED (<130/80) [facility] Start: 01-18-2023 HEMOGLOBIN/HEMATOCRIT HEMOGLOBIN/HEMATOCRIT [facility] Start: 01-18-2023 Hepatitis B screening URINE ALBUMIN:CREATININE RATIO [facility] Start: 01-18-2023 SERUM CREATININE SERUM CREATININE [facility] Start: 12-21-2022 Hepatitis B surface antibody level LDL CHOLESTEROL [facility] Start: 10-16-2022 ADVANCE DIRECTIVE DISCUSSION ADVANCE DIRECTIVE DISCUSSION [facility] Start: 08-22-2022 End: 08-15-2023 Echocardiography ECHO Cardiology Routine Nonrheumatic aortic valve stenosis Expected: 08/22/2022, Expires: 08/15/2023 [facility] Work Phone: Comment on above: Expected: 08/22/2022, Expires: 3 Start: 07-20-2022 Hemoglobin A1c/Hemoglobin.total in Blood HBA1C [facility] Start: 06-16-2022 Influenza vaccination [facility] Start: 04-12-2022 COVID-19 VACCINE (4 - Booster for Moderna series) COVID-19 VACCINE (4 - Booster for Moderna series) [facility] Start: 02-18-2022 End: 04-20-2022 Basic metabolic 2000 panel - Serum or Plasma BASIC METABOLIC PNL Lab Routine Essential hypertension with goal blood pressure less than 140/90 Expected: 02/18/2022, Expires: 04/20/2022 [facility] Work Phone: Comment on above: Expected: 02/18/2022, Expires: 2 Start: 02-07-2022 COVID-19 VACCINE (4 - Booster for Moderna series) COVID-19 VACCINE (4 - Booster for Moderna series) [facility] Start: 10-16-2021 ADVANCE DIRECTIVE DISCUSSION ADVANCE DIRECTIVE DISCUSSION [facility] Start: 01-18-2020 3 comp foot exam completed DIABETIC FOOT EXAM [facility] Start: 12-05-2019 Glaucoma screening Dilated Retinal Exam [facility] Start: 12-05-2019 Hepatitis C antibody, confirmatory test DILATED RETINAL EXAM [facility] Start: 2018 RSV Vaccine (1 - 1-dose 75+ series) RSV Vaccine (1 - 1-dose 75+ series) [facility] Start: 2003 Hepatitis B Vaccine (1 of 3 - Risk 3-dose series) Hepatitis B Vaccine (1 of 3 - Risk 3-dose series) [facility] Start: 1993 SHINGRIX VACCINE (1 of 2) SHINGRIX VACCINE (1 of 2) [facility] Start: 1961 BP Controlled (<130/80) BP Controlled (<130/80) [facility] Start: 1961 HEPATITIS C SCREENING HEPATITIS C SCREENING [facility] Start: 1949 PNEUMOCOCCAL: 65+ (1 - PCV) PNEUMOCOCCAL: 65+ (1 - PCV) [facility] End: 08-09-2025 CTA Abdominal vessels and Pelvis vessels W contrast IV CTA ABD/PEL W IVCON Radiology Routine Nonrheumatic aortic valve stenosis Encounter for preprocedural cardiovascular examination 1 Occurrences starting 07/10/2024 until 08/09/2025 [facility] Work Phone: Comment on above: 1 Occurrences starting 07/10/2024 until 08/09/2025 End: 07-23-2024 CTA Abdominal vessels and Pelvis vessels W contrast IV [facility] Work Phone: Comment on above: 1 Occurrences starting 07/23/2024 until 07/23/2024 End: 08-09-2025 CTA Chest vessels WO and W contrast IV CTA CHEST (GATED) WO/W IVCON Radiology Routine Nonrheumatic aortic valve stenosis Encounter for preprocedural cardiovascular examination 1 Occurrences starting 07/10/2024 until 08/09/2025 [facility] Comment on above: 1 Occurrences starting 07/10/2024 until 08/09/2025 End: 07-23-2024 CTA Chest vessels WO and W contrast IV [facility] Comment on above: 1 Occurrences starting 07/23/2024 until 07/23/2024 ECG COMPLETE ECG COMPLETE ECG Routine Syncope, unspecified syncope type Aortic valve disorder Paroxysmal atrial fibrillation (HCC) Ordered: 03/21/2024 [facility] Work Phone: Comment on above: Ordered: 03/21/2024 End: 07-10-2025 EXTENDED WEAR FINISHER SPECIAL STOCKS PATCH EXTENDED WEAR FINISHER SPECIAL STOCKS PATCH ECG Routine Nonrheumatic aortic valve stenosis 1 Occurrences starting 07/10/2024 until 07/10/2025 [facility] Comment on above: 1 Occurrences starting 07/10/2024 until 07/10/2025 End: 07-10-2024 EXTENDED WEAR FINISHER SPECIAL STOCKS PATCH EXTENDED WEAR FINISHER SPECIAL STOCKS PATCH ECG Routine Nonrheumatic aortic valve stenosis 1 Occurrences starting 07/10/2024 until 07/10/2024 [facility] Work Phone: Comment on above: 1 Occurrences starting 07/10/2024 until 07/10/2024 Hemoglobin.tony velez alTituslower [Presence] in Stool by Immunoassay IMMUNOCHEMICAL FECAL OCCULT BLOOD TEST Lab Routine CKD (chronic kidney disease) stage 4, 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/min ([facility]) Anemia, unspecified type Ordered: 04/05/2024 [facility] Work Phone: Comment on above: Ordered: 04/05/2024 Hemoglobin.tony lopezlower [Presence] in Stool by Immunoassay IMMUNOCHEMICAL FECAL OCCULT BLOOD TEST Lab Routine Screen for colon cancer Ordered: 2024 [facility] Work Phone: Comment on above: Ordered: 2024 OUTSIDE VENDOR CARDI AC OUTPATIENT EXTENDED RHYTHM RECORDING (WITHOUT TELEMETRY) OUTSIDE VENDOR CARDIAC OUTPATIENT EXTENDED RHYTHM RECORDING (WITHOUT TELEMETRY) Holter Routine Syncope, unspecified syncope type Ordered: 02/13/2023 [facility] Work Phone: Comment on above: Ordered: 02/13/2023 Removal impacted cer umen irrigation/lvg unilat AMBULATORY EAR LAVAGE/IRRIGATION Procedures Routine Bilateral impacted cerumen Ordered: 01/21/2025 [facility] Comment on above: Ordered: 01/21/2025 End: 03-26-2025 US Carotid arteries - bilateral US CAROTID ARTERIES [facility]RAY [facility] Vascular Lab Routine History of carotid endarterectomy 1 Occurrences starting 03/26/2024 until 03/26/2025 [facility] Work Phone: Comment on above: 1 Occurrences starting 03/26/2024 until 03/26/2025 End: 03-16-2023 US CAROTID ARTERIES GRAY [facility] LAB US CAROTID ARTERIES GRAY [facility] Vascular Lab Routine Bilateral carotid artery stenosis 1 Occurrences starting 03/18/2022 until 03/16/2023 [facility] Work Phone: Comment on above: 1 Occurrences starting 03/18/2022 until 03/16/2023 End: 10-04-2023 US CAROTID ARTERIES GRAY VAS LAB US CAROTID ARTERIES GRAY [facility] Vascular Lab Routine Bilateral carotid artery stenosis 1 Occurrences starting 10/04/2022 until 10/04/2023 [facility] Work Phone: Comment on above: 1 Occurrences starting 10/04/2022 until 10/04/2023 End: 04-25-2025 US Kidney - bilateral and Urinary bladder US KIDNEY/BLADDER Radiology Routine Renal insufficiency 1 Occurrences starting 03/26/2024 until 04/25/2025 [facility] Comment on above: 1 Occurrences starting 03/26/2024 until 04/25/2025 [facility] Immunizations Immunization Date Immunization Notes Care Provider Pete carter 07-12-2024 COVID-19 vaccine, ag e 12+ yr ([employer] [facility]) Guanakito Reno MD Work Phone: [facility] 07-12-2024 influenza, high dose seasonal, preservative-free Guanakito Reno MD Work Phone: [facility] 07-12-2024 influenza virus vacc ine, unspecified formulation Guanakito Reno MD Work Phone: [facility] 08-14-2023 COVID-19 vaccine, ag e 12+ yr, season (PFIZER-BIONTECH) Guanakito Reno MD Work Phone: [facility] 08-14-2023 influenza (HD-IIV4) vaccine, age 65+ yr, high dose, quadrivalent, PF (FLUZONE HIGH-DOSE) Guanakito Reno MD Work Phone: [facility] 08-14-2023 influenza virus vacc ine, unspecified formulation Ruthie Cuevas [facility] 02-06-2023 COVID-19 vaccine, ag e 12+ yr, bivalent (PFIZER-BIONTECH) Guanakito Reno MD Work Phone: [facility] 12-13-2021 COVID-19 vaccine, ag e 12+ yr (P[employer]ER-BIONTECH - YANES [employer]) Guanakito Reno MD Work Phone: [facility] 04-22-2021 tetanus and diphther ia toxoids, adsorbed, preservative free, for adult use (5 Lf of tetanus toxoid and 2 Lf of diphtheria toxoid) Guanakito Reno MD Work Phone: [facility] 02-16-2021 COVID-19 vaccine, fu ll dose (MODERNA) Guanakito Reno MD Work Phone: [facility] Work Phone: 01-19-2021 COVID-19 vaccine, fu ll dose (MODERNA) Guanakito Reno MD Work Phone: [facility] Work Phone: 07-18-2019 influenza, high dose seasonal, preservative-free Guanakito Reno MD Work Phone: [facility] Work Phone: 07-18-2019 influenza virus vacc ine, unspecified formulation Lizette Cardenas RN [facility] 09-15-2017 influenza, high dose seasonal, preservative-free Guanakito Reno MD Work Phone: [facility] 08-11-2016 influenza, high dose seasonal, preservative-free Guanakito Reno MD Work Phone: [facility] 08-11-2016 pneumococcal polysaccharide vaccine, 23 valent Guanakito Reno MD Work Phone: [facility] 08-10-2015 influenza, high dose seasonal, preservative-free Guanakito Reno MD Work Phone: [facility] 04-09-2015 pneumococcal conjuga te vaccine, 13 valent Guanakito Reno MD Work Phone: [facility] 10-21-2013 influenza virus vacc ine, unspecified formulation Guanakito Reno MD Work Phone: [facility] 08-08-2012 influenza virus vacc ine, unspecified formulation Guanakito Reno MD Work Phone: [facility] Work Phone: 10-12-2005 pneumococcal polysaccharide vaccine, 23 valent Guanakito Reno MD Work Phone: [facility] Work Phone: 12-02-2003 diphtheria and tetan us toxoids, adsorbed for pediatric use Guanakito eRno MD Work Phone: [facility] Work Phone: Payers Date Payer Category Payer Self-pay 2024 Unknown [id number] 2019 Medicare UHC AARP MEDICAR E UHC AARP MEDICARE HMO [id number] 2019-Present [phone] [address] [address] [place] [address] [facility] [id number] 2019 Medicare UHC AARP MEDICAR E UHC AARP MEDICARE HMO [id number] 2019-Present [phone] [address] [address] [place] [address] HMO [id number] 2019 Medicare (Managed Care) [facility] MEDICARE HMO [id number] 2019 Medicare [id number] 2009 Unknown [id number] 2008 Medicare [id number] Medicare [id number] Unknown [id number] 462 Unknown [id number] 462 Unknown [id number] 462 Unknown [id number] 462 Unknown [id number] 462 Unknown [id number] 462 Unknown [id number] 462 Unknown [id number] 462 Unknown [id number] 462 Unknown [id number] 462 Unknown [id number] 462 Unknown [id number] 462 Unknown [id number] 462 Social History Date Type Detail Facility Start: 08-10-2015 End: 03-06-2025 Tobacco smoking status NHIS Ex-smoker [facility] Start: 12-05-1975 End: 12-05-1985 History of tobacco use Current smoker [facility] Start: 12-05-1975 End: 12-05-1985 History of tobacco use Cigarette Smoker [facility] Start: 01-19-2022 End: 03-06-2025 Alcohol intake Current non-drinker of alcohol (finding) [facility] Start: 10-26-2020 History SDOH Alcohol Frequency 1 [facility] Start: 10-26-2020 History SDOH Alcohol Std Drinks 98 [facility] Start: 05-15-2019 History SDOH Alcohol Comment none now; social in past [facility] Start: 10-26-2020 History SDOH Social Connections Get Together 2 [facility] Start: 10-26-2020 History SDOH Social Connections Living 4 [facility] Start: 10-26-2020 History SDOH Physica l Activity DPW 0 [facility] Start: 10-26-2020 History SDOH Financial 5 [facility] Start: 10-26-2020 Education 14 [facility] Start: 1945 Sex Assigned At Not on file [facility] Start: 01-09-2022 End: 08-15-2022 Exposure to SARS-CoV-2 (event) Not sure [facility] Start: 03-22-2022 End: 04-01-2022 Exposure to SARS-CoV-2 (event) Unable to assess [facility] Work Phone: Start: 08-10-2015 End: 04-11-2023 Cigarettes smoked current (pack per day) - Reported 2 [facility] Start: 08-10-2015 End: 06-05-2024 Tobacco use and exposure Smokeless tobacco non-user [facility] Start: 10-26-2020 End: 04-11-2023 Social connection and isolation panel [facility] Do you belong to any clubs or organizations such as protestant groups, unions, fraternal or athletic groups, or school groups? No [facility] Are you now , , , , never or living with a partner? [facility] How often to you hav e a drink containing alcohol? Never [facility] How many standard dr inks containing alcohol do you have on a typical day? Patient refused [facility] Do you feel stress - tense, restless, nervous, or anxious, or unable to sleep at night because your mind is troubled all the time - these days [OSQ] Only a little [facility] (I/We) worried vannesa er (my/our) food would run out before (I/we) got money to buy more. Never true [facility] Start: 1945 Sex Assigned At Male [facility] Medical Equipment Procedure Code Equipment Code Equipment Origin al Text Equipment Identifier Dates [id number], [id number] Start: 11-11-2011 Comment on above: Test blood sugar(s) one times daily. Dx: 250.00. Insulin: No Test blood sugar(s) one time daily. Dx: 250.00. Insulin: No Goals Date Patient Goal Desired Activity /State Personal health goal Functional Status Date Assessment Result Facility 04-09-2015 Are you deaf, or do you have serious difficulty hearing No 04/09/2015 11:20 AM Stephany Welch MA No [facility] 04-09-2015 Are you blind, or do you have serious difficulty seeing, even when wearing glasses No 04/09/2015 11:20 AM Stephany Welch MA No [facility] 04-09-2015 Do you have serious difficulty walking or climbing stairs No 04/09/2015 11:20 AM Stephany Welch MA No [facility] 04-09-2015 Do you have difficul ty dressing or bathing No 04/09/2015 11:20 AM Stephany Welch MA [facility] 04-09-2015 Because of a physica l, mental, or emotional condition, do you have difficulty doing errands alone such as visiting a physician's office or shopping No 04/09/2015 11:20 AM EDT Stephany Graves MA No [facility] Mental Status Date Assessment Result Facility 04-09-2015 Because of a physica l, mental, or emotional condition, do you have serious difficulty concentrating, remembering, or making decisions No 04/09/2015 11:20 AM EDT Stephany Graves MA No [facility] Clinical Notes 03-29-2011 to 04-15-2025 Telephone Encounter - [facility] - 04/15/2025 9:09 AM EDTTelephone Encounter - [facility] - 04/15/2025 9:09 AM EDTTelephone Encounter - Leidy Malone RN - 04/14/2025 3:18 PM EDT Note Date & Type Note Facility 04-15-2025 Telephone encount er Note [facility] Anticoagulation Episode Summary Anticoagulation Care Providers Provider Role Specialty Phone number Guanakito Reno MD [facility] [phone] Cal Mitchell is a 79 year old [...] Pharmacy Anticoagulation Clinic [facility] Pager: [phone]. [facility] 04-15-2025 Miscellaneous Notes Formattin g of this note is different from the original. [facility] Anticoagulation Episode Summary Anticoagulation Care Providers Provider Role Specialty Phone number Guanakito Reno MD [facility] [phone] Cal Mitchell is a 79 year old [...] Pharmacy Anticoagulation Clinic [facility] Pager: [phone]. documented in this encounter [facility] 04-14-2025 Telephone encount er Note Gustavo calls back and notified of provider recommendation below. Voices understanding. Leidy Malone RN [facility] 04-14-2025 Miscellaneous Notes Formattin g of [...] him? Please advise documented in this encounter [facility] 04-14-2025 Telephone encount er Note Phoned Gustavo left message to return call and ask to speak to a nurse. [facility] 04-14-2025 Telephone encount er Note yes [facility] 04-14-2025 Telephone encount er Note Patient son in law Chen calling he has been giving the patient Tylenol 500 mg two tablets twice daily since his fracture right shoulder at almost the end of February. He is asking if it is alright that they are still giving it to him? Please advise [facility] 04-08-2025 Telephone encount er Note The following approved medication requests have been transmitted electronically. Requested Prescriptions Pending Prescriptions Disp Refills warfarin (COUMADIN) 5 mg tablet 90 tablet 3 Sig: Take 1 tablet by mouth once daily. warfarin (COUMADIN) 5 mg tablet 30 tablet 0 Sig: Take 1 tablet by mouth once daily. Carolina Landeros APRN.CNP [facility] 04-08-2025 Miscellaneous Notes Formattin g of this note is different from the original. The following approved medication requests have been transmitted electronically. Requested Prescriptions Pending Prescriptions Disp Refills warfarin (COUMADIN) 5 mg tablet 90 tablet 3 Sig: Take 1 tablet by mouth once daily. warfarin (COUMADIN) 5 mg tablet 30 tablet 0 Sig: Take 1 tablet by mouth once daily. Carolina Landeros APRN.KOURTNEY Prescription Refill Information The patient has been [...] 2025 2:33 PM documented in this encounter [facility] 04-08-2025 Telephone encount er Note Prescription [...] refills. Pt is not due for refill. MC message to pt advising of the same. Darrell Meyer LPN April 08, 2025 2:38 PM [facility] 04-08-2025 Miscellaneous Notes Formattin g of [...] refills. Pt is not due for refill. MC message to pt advising of the same. Darrell Meyer LPN April 08, 2025 2:38 PM documented in this encounter [facility] 04-08-2025 Telephone encount er Note Prescription [...] Meyer LPN April 08, 2025 2:33 PM [facility] 04-08-2025 Evaluation note Diagnosis Hypertensive kidney disease with stage 3 chronic kidney disease, unspecified whether stage 3a or 3b CKD (HCC) Type 2 diabetes mellitus with stage 3 chronic kidney disease, without long-term current use of insulin, unspecified whether stage 3a or 3b CKD (HCC) Chronic renal disease, stage IV (HCC) Chronic kidney disease, Stage IV (severe) documented in this encounter [facility]06-13-2025 Telephone encounter Note* Telephone Encounter - Niels Rodriges RN - 03/28/2025 1:04 PM EDT Faxed recent ov notes to [facility] per daughter, January request. . January reports she talked to [facility] about patient going to live there and [facility] instructed her to have pcp office send an H & P to them for review. [facility]06-13-2025 Miscellaneous Notes* Telephone Encounter - Niels Rodriges RN - 03/28/2025 1:04 PM EDT Faxed recent ov notes to [facility] per daughter, January request. . January reports she talked to [facility] about [facility] live [facility] and [facility] instructed her to have pcp office send an H & P to them for review. documented in [facility] encounter[facility]06-[facility]25 Telephone encounter Note * Telephone Encounter - Alejandro Molina RPh - 03/24/2025 10:57 AM EDT [facility] Anticoagulation Clinic Anticoagulation Episode Summary Anticoagulation Care Providers Provider Role Specialty Phone number Guanakito Reno MD Responsible [facility] [phone] Cal Mitchell is a 79 year old [...] instructed to call [facility] at [phone] with any questionsor concerns. Alejandro Molina RPh Clinical Pharmacist, Pharmacy Anticoagulation Clinic [facility] Pager: [phone] [facility]06-09-2025 Miscellaneous Notes* Telephone Encounter - Alejandro Molina RPh - 03/24/2025 10:57 AM EDT [facility] Anticoagulation Episode Summary Anticoagulation Care Providers Provider Role Specialty Phone number Guanakito Reno MD [facility] [phone] Cal Mitchell is a 79 year old [...] instructed to call [facility] at [phone] with any questionsor concerns. Alejandro Molina RPh Clinical Pharmacist, Pharmacy Anticoagulation Clinic [facility] Pager: [phone] documented in this encounterMer[facility]05-23-2025 Evaluation note* Diagnosis Onset Date Resolution Status Admit Date Closed fracture of right pro ximal humerus acute March 07, 2025 1 2:49pm [facility] [employer] Work Phone: 1(960) 967-760005-22-2025 NoteHNO ID: [id number] Author: CAROLINA LANDEROS APRN.ATHLETIC EVENTS SCORER Service: ? Author Type: Nurse Practitioner Type: [...] and 9-10/10 with movement. - Currently taking [place] for pain management. - Denies pain elsewhere [...] in a sl (more content not included)... [facility]05-08-2025 Telephone encounter Note* Telephone Encounter - Jimmy [facility] - 02/20/2025 8:59 AM EDT [facility]tico[facility] Anticoagulation Episode Summary Anticoagulation Care Providers Provider Role Specialty Phone number Shadia, Guanakito J, MD [facility] [phone] Cal Mitchell is a 79 year old [...] 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: FCI (current) use of anticoagulants Paroxysmal atrial fibrillation [...] Pharmacy Anticoagulation Clinic Pharmacy An[facility] Clinic Pager: [phone]. [facility]05-08-2025 Miscellaneous Notes* Telephone Encounter - Jimmy Carrizales RPh - 02/20/2025 8:59 AM EDT [facility] Anticoagulation Episode Summary Anticoagulation Care Providers Provider Role Specialty Phone number Guanakito Reno MD [facility] [phone] Cal Mitchell is a 79 year old [...] 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: FCI (current) use of anticoagulants Paroxysmal atrial fibrillation [...] Pharmacy Anticoagulation Clinic Pharmacy An[facility] Clinic Pager: [phone]. documented in this encounterMer[facility]04-18-2025 Telephone encounter Note * Telephone Encounter - Kamran Ayon RPh - 01/31/2025 12:43 PM EDT [facility] Anticoagulation Episode Summary Anticoagulation Care Providers Provider Role Specialty Phone number Guanakito Reno MD [facility] Medicine [phone] Cal Mitchell is a 79 year old [...] 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: FCI (current) use of anticoagulants Paroxysmal atrial fibrillation [...] Pharmacy Anticoagulation Clinic Pharmacy An[facility] Clinic Pager: [phone]. [facility]04-18-2025 Miscellaneous Notes* Telephone Encounter - Kamran Ayon RPh - 01/31/2025 12:43 PM EDT [facility] Anticoagulation Episode Summary Anticoagulation Care Providers Provider Role Specialty Phone number Guanakito Reno MD [facility] [phone] Cal Mitchell is a 79 year old [...] 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: FCI (current) use of anticoagulants Paroxysmal atrial fibrillation [...] Pharmacy Anticoagulation Clinic Pharmacy An[facility] Clinic Pager: [phone]. documented in this encounterMer[facility]04-10-2025 Progress note* Result Encounter Note - [...] levels, magnesium, and B12 are all normal. [facility]04-10-2025 Miscellaneous Notes* Result Encounter Note - [...] B12 are all normal. documented in this encounterMercy [facility] Hospital04-08-2025 NoteHNO ID: [id number] Author: GEOVANNA HINDS MA Service: ? Author Type: Deli Associate Type: Progress Notes Filed: 01/21/2025 17:08 Note [...] Geovanna Hinds MA January 21, 2025 5:08 [facility]04-08-2025 History of Present illness Narrative* Geovanna Hinds [...] by LIP pre and post procedure Geovanna Hnids MA January 21, 2025 5:08 PM * Carolina Landeros APRN.[facility] - 01/21/2025 3:43 PM EDT This is [...] taking lisinopril Monitors bp at home: Yes. [place] checks it, ok there Denies side effects: [...] 250.00. Insulin: No Lancets (ONE TOUCH DELICA) [facility] lancets Test blood sugar(s) one time daily. [...] No oropharyngeal exudate. Eyes: Comments: Conjunctiva gray. [place] and itchy Cardiovascular: Rate and Rhythm: Normal [...] MG TABLET - COMPREHENSIVE METABOLIC PANEL 12. FCI (current) use of anticoagulants - ICD9: V58.61, [...] needed for worsening/no improvement. \\ Carolina Landeros APRN.ATHLETIC EVENTS SCORER documented in this encounterMercy [facility] Hospital04-08-2025 Note* Addendum Note - Carolina Landeros APRN.CNP - 01/21/2025 4:54 PM EDTAddended by: CAROLINA LANDEROS on: 01/21/2025 04:54 PM Modules accepted: Orders [facility]04-08-2025 Miscellaneous Notes* Addendum Note - Carolina Landeros APRN.CNP - 01/21/2025 4:54 PM EDTAddended by: CAROLINA LANDEROS on: 01/21/2025 04:54 PM Modules accepted: Orders * Addendum Note - Geovanna Hinds MA - 01/21/2025 4:33 PM EDTAddended by: GEOVANNA HINDS on: 01/21/2025 04:33 PM Modules accepted: Orders documented in this encounterMercy Memorial Hospital04-08-2025 Note* Addendum Note - Geovanna Hinds MA - 01/21/2025 4:33 PM EDTAddended by: GEOVANNA HINDS on: 01/21/2025 04:33 PM Modules accepted: Orders [facility]04-08-2025 Instructions* Patient Instructions* Carolina Landeros APRN.CNP [...] up in 6 months documented in this encounterMercy [facility] Hospital04-08-2025 NoteHNO ID: [id number] Author: CAROLINA LANDEROS APRN.CNP Service: ? Author [...] taking lisinopril Monitors bp at home: Yes. [place] checks it, ok there Denies side effects: [...] 250.00. Insulin: No Lancets (ONE TOUCH DELICA) [facility] lancets Test blood sugar(s) one time daily. [...] Drug use: No EXAM: (more content not included)...[facility]03-26-2025 Miscellaneous Notes* Telephone Encounter - [...] 08, 2025 2:53 PM documented in this encounterMercy [facility] Hospital03-26-2025 Telephone encounter Note * Telephone Encounter [...] [place] LPN January 08, 2025 2:53 PM [facility]03-26-2025 Telephone encounter Note* Telephone Encounter - Ruthie Cuevas RPh - 01/08/2025 8:51 AM EDT [facility] Anticoagulation Clinic Anticoagulation Episode Summary Anticoagulation Care Providers Provider Role Specialty Phone number Guanakito Reno MD [facility] [phone] Cal Mitchell is a 79 year old [...] 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 [facility]03-26-2025 Miscellaneous Notes* Telephone Encounter - Ruthie Cuevas RPh - 01/08/2025 8:51 AM EDT [facility] Antico[facility] Anticoagulation Episode Summary Anticoagulation Care Providers Provider Role Specialty Phone number Guanakito Reno MD [facility] Medicine [phone] Cal Mitchell is a 79 year old [...] 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: FCI (current) use of anticoagulants Paroxysmal atrial fibrillation [...] Pharmacy Anticoagulation Clinic Pharmacy Anticoagulation Clinic Pager: [phone]. documented in this encounterMercy [facility] Hospital03-26-2025 Evaluation note* Diagnosis Hypertensive kidney disease with stage 3 chronic kidney disease, unspecified whether stage 3a or 3b CKD (HCC) documented in this encounter [facility]03-17-2025 Telephone encounter Note* Telephone Encounter - Octavio (Magnetic Tape Composer OperatorRubne Granados - 12/30/2024 9:15 AM EDT De called regarding INR result for patient. Result has been addressed below, no further action needed. Ruben Cunningham [employer] Lab Technician (mds rn) [facility]acy Anticoagulation Clinic [facility]03-17-2025 Miscellaneous Notes* Telephone Encounter - Octavio (Magnetic Tape Composer OperatorRuben Granados - 12/30/2024 9:15 AM EDT De called regarding INR result for patient. Result has been addressed below, no further action needed. Ruben Cunningham [employer] Lab Technician (mds rn) Pharmacy Anticoagulation Clinic * Telephone Encounter - [place] RPh - 12/30/2024 9:12 AM EDT [facility] Anticoagulation Clinic Anticoagulation Episode Summary Anticoagulation Care Providers Provider Role Specialty Phone number Guanakito Reno MD [facility] [phone] Cal Mitchell is a 79 year old [...] Pharmacy Anticoagulation Clinic Pharmacy Anticoagulation Clinic Pager: [phone]. documented in this encounterMercy [facility] Hospital03-17-2025 Telephone encounter Note * Telephone Encounter - [facility] - 12/30/2024 9:12 AM EDT [facility] Anticoagulation Episode Summary Anticoagulation Care Providers Provider Role Specialty Phone number Guanakito Reno MD [facility] [phone] Cal Mitchell is a 79 year old [...] Pharmacy Anticoagulation Clinic Pharmacy An[facility] Pager: [phone]. 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 Jimmy [facility]ales [facility] Clinical Pharmacist, Pharmacy Anticoagulation Clinic Pharmacy Anticoagulation [facility] Pager: [phone]. [facility]02-26-2025 Miscellaneous Notes* Telephone Encounter - Jimmy Carrizales RPh - 12/11/2024 9:43 AM EST [facility] Anticoagulation Episode Summary Anticoagulation Care Providers Provider Role Specialty Phone number Guanakito Reno MD [facility] [phone] Cal Mitchell is a 79 year old [...] 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: FCI (current) use of anticoagulants Paroxysmal atrial fibrillation [...] Pharmacy Anticoagulation Clinic Pharmacy Anticoagulation Clinic Pager: [phone]. documented in this encounterMercy [facility]02-[facility] Telephone encounter Note * Telephone Encounter - Twin Cole RPh - 11/26/2024 5:26 PM EST [facility] Anticoagulation Episode Summary Anticoagulation Care Providers Provider Role Specialty Phone number Guanakito Reno MD [facility] [phone] Cal Mitchell is a 79 year old [...] Pharmacy Anticoagulation Clinic Pharmacy Anticoagulation Clinic Pager: [phone]. [facility]02-[facility] Miscellaneous Notes* Telephone Encounter - Twin Cole RPh - 11/26/2024 5:26 PM EST [facility] Anticoagulation Episode Summary Anticoagulation Care Providers Provider Role Specialty Phone number Guanakito Reno MD [facility] [phone] Cal Mitchell is a 79 year old [...] Pharmacy Anticoagulation Clinic Pharmacy Anticoagulation Clinic Pager: [phone]. documented in this encounterMercy Memorial Hospital01-13-2025 Telephone encounter Note * Telephone Encounter - Alejandro Molina RPh - 10/28/2024 5:06 PM EST [facility] Anticoagulation Episode Summary Anticoagulation Care Providers Provider Role Specialty Phone number Guanakito Reno MD [facility] Medicine [phone] Cal Mitchell is a 79 year old [...] instructed to call [facility] at [phone] with any questionsor concerns. Alejandro Molina RPh Clinical Pharmacist, Pharmacy Anticoagulation Clinic Pharmacy Anticoagulation Clinic Pager: [phone] [facility]01-13-[facility]25 Miscellaneous Notes* Telephone Encounter - Alejandro Molina RPh - 10/28/2024 5:06 PM EST [facility] Anticoagulation Episode Summary Anticoagulation Care Providers Provider Role Specialty Phone number Guanakito Reno MD [facility] [phone] Cal Mitchell is a 79 year old [...] instructed to call [facility] at [phone] with any questionsor concerns. Alejandro Molina RPh Clinical Pharmacist, Pharmacy Anticoagulation Clinic Pharmacy Anticoagulation Clinic Pager: [phone] documented in this encounterMercy Memorial Hospital01-06-2025 Telephone encounter Note * Telephone Encounter - Ashley De Dios RN - 10/21/2024 2:58 PM EST Pt ALEC Chen called and is notified of providers message. He voices understanding. Ashley De Dios RN [facility]01-06-2025 Miscellaneous Notes* Telephone Encounter - Ashley De Dios RN - 10/21/2024 2:58 PM EST Pt ALEC Chen called and is notified of providers message. He voices understanding. Ashley De Dios RN * Telephone Encounter - Guanakito Reno MD - 10/21/2024 2:25 PM EST agree * Telephone Encounter - Ashley De Dios RN - 10/21/2024 2:01 PM EST Pts ALEC Gustavo called and is notified of providers message [...] Please call and advise. documented in this encounterMercy Memorial Hospital01-06-2025 Telephone encounter Note * Telephone Encounter - Guanakito Reno MD - 10/21/2024 2:25 PM EST agree [facility]01-06[facility] Telephone encounter Note* Telephone Encounter - [...] to the Pt. Ashley De Dios RN [facility]01-06-2025 Telephone encounter Note* Telephone Encounter - Guanakito Reno MD - 10/21/2024 1:55 PM EST Can try mucinex otc. Call if symptoms worsen at all or if not better in one to two weeks [facility]01-06-[facility] Telephone encounter Note* Telephone Encounter - [...] him for Covid. Please call and advise. [facility]12-17-[facility] Telephone encounter Note* Telephone Encounter - Twin Cole [facility] - 10/01/2024 9:37 AM EST [facility] Anticoagulation Episode Summary Anticoagulation Care Providers Provider Role Specialty Phone number Guanakito Reno MD [facility] Medicine [phone] Cal Mitchell is a 79 year old [...] Pharmacy Anticoagulation Clinic Pharmacy Anticoagulation Clinic Pager: [phone]. [facility]12-17-[facility]24 Miscellaneous Notes* Telephone Encounter - Twin Cole RPh - 10/01/2024 9:37 AM EST [facility] Anticoagulation Episode Summary Anticoagulation Care Providers Provider Role Specialty Phone number Guanakito Reno MD [facility] [phone] Cal Mitchell is a 79 year old [...] missed any doses of warfarin. Twin Cole RP Clinical Pharmacist, Pharmacy Anticoagulation Clinic Pharmacy Anticoagulation Clinic Pager: [phone]. documented in this encounterMercy Memorial Hospital11-11-2024 Telephone encounter Note * Telephone Encounter - Alejandro Molina RPh - 08/26/2024 6:35 AM EST [facility] Anticoagulation Episode Summary Anticoagulation Care Providers Provider Role Specialty Phone number Guanakito Reno MD [facility] Medicine [phone] Cal Mitchell is a 79 year old [...] warfarin instructions: 5 mg every day Sent [employer] message Advised patient to continue current weekly dose as noted above Next INR check due on 09/09/2024 Alejandro Molina [facility] Clinical Pharmacist, Pharmacy Anticoagulation Clinic Pharmacy Anticoagulation Clinic Pager: [phone]. [facility] Miscellaneous Notes* Telephone Encounter - Alejandro Molina RPh - 08/26/2024 6:35 AM EST [facility] Anticoagulation Episode Summary Anticoagulation Care Providers Provider Role Specialty Phone number Guanakito Reno MD [facility] [phone] Cal Mitchell is a 79 year old [...] warfarin instructions: 5 mg every day Sent [employer] message Advised patient to continue current weekly dose as noted above Next INR check due on 09/09/2024 Alejandro Molina RPh Clinical Pharmacist, Pharmacy Anticoagulation Clinic Pharmacy Anticoagulation Clinic Pager: [phone]. documented in this encounterMercy Memorial Hospital11-04-2024 NoteHNO ID: [id number] Author: MELANIA GALINDO RN Service: ? Author Type: Registered Nurse Type: Progress Notes Filed: 08/19/2024 12:55 Note Text: Summary: Medication Adherence Review per Request of Payor ACNiels LUIS RN Reason for review or outreach: Medication Adherence Review Details: Cholesterol FYI/REQUESTED ACTION: Summary / Findings: Atorvastatin was due for refill on/before 08.09.24. Sent [employer] reminder 08.15.24- not read Called patient Patient identified by name and date of . Patient Attributed To: YANCIE Payer: [employer] Action Taken: Data submitted to Payer Contact made with patient: No, Left message BENJIE Schreiber RNFisher[facility]11-04-2024 History of Present illness Narrative* Melania Galindo RN - 08/19/2024 12:51 PM ESTSummary: Medication Adherence Review per Request of Payor ACNiels LUIS RN Reason for review or outreach: Medication Adherence Review Details: Cholesterol FYI/REQUESTED ACTION: Summary / Findings: Atorvastatin was due for refill on/before 08.09.24. Sent [employer] reminder 08.15.24- not read Called patient Patient identified by name and date of . Patient Attributed To: QAE Payer: [employer] Action Taken: Data submitted to Payer Contact made with patient: No, Left message BENJIE Schreiber RN documented in this encounterMercy Memorial Hospital11-04-2024 NotePatient Outreach ([facility] CAL MITCHELL ([id number]) 1945 M Date Time Provider Department 08/19/24 [...] and date of . Patient Attributed To: [facility] Payer: [employer] [place] Action Taken: Data submitted to Payer Contact made with patient: No, Left message BENJIE Schreiber RN Allergies As of Date: 08/19/2024 (No Known Allergies) Date Reviewed: 08/06/2024 Reviewed by: Bi Cantu LPN - Fully Assessed Reason for Visit: ACM LUIS RN [[id number]] Cmt: Medication Adherence Review per Request of [...] Insulin: No - Lancets (ONE TOUCH DELICA) [facility] lancets Test blood sugar(s) one time daily. 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 Cannot tell this Nurse what he is taking and not takiing at this time. Bi Cantu LPN August 06, 2024 1:29 PM [facility]10-22-[facility] Nurse Note* Bi Cantu LPN - 08/06/2024 1:28 PM EDT Patient not a good historian of medications. Cannot tell this Nurse what he is taking and not takiing at this time. Bi Cantu LPN August 06, 2024 1:29 PM documented in this encounterMercy Memorial Hospital10-22-2024 NoteHNO ID: [id number] Author: LAURA IRAHETA MD Service: ? Author Type: Physician Type: Progress Notes Filed: 08/06/2024 17:14 Note Text: [facility] [place] DEPARTMENT OF VASCULAR SURGERY OUTPATIENT VISIT DATE [...] is seen today for carotid stenosis. Mr. Mithcell was evaluated in the valve clinic and [...] ALLERGIES: ALLERG (more content not included)...[facility]10-[facility] History of Present illness Narrative* Laura Iraheta MD - 08/06/2024 1:25 PM EDT Images from the original note were not included. [facility] [place] DEPARTMENT OF VASCULAR SURGERY OUTPATIENT VISIT DATE [...] 250.00. Insulin: No Lancets (ONE TOUCH DELICA) [facility] lancets Test blood sugar(s) one time daily. Dx: 250.00. Insulin: No ALLERGIES: ALLERGIES No Known Allergies REVIEW OF SYSTEM: Constitutional: No weight loss, malaise or fevers. Respiratory: Negative for SOB Cardiovascular: Negative for chest pain or recent OR Gatrointestinal: Negative for abdominal discomfort Genitourinary: Negative [...] 2024 TIME: 4:41 PM documented in this encounterMercy Memorial Hospital10-17-2024 Telephone encounter Note * Telephone Encounter - Josselyn Mayer APRN.CNP - 08/01/2024 9:56 AM EDT I spoke with Gustavo and communicated recommendations of medical therapy. He reports patient also expressed wanting to continue without any further intervention. Patient and family agreeable to plan. Josselyn Mayer APRN.CNP [facility]10-17-2024 Miscellaneous Notes* Telephone Encounter - Josselyn [...] Gustavo calls requesting a return call at [phone]. Chely Nicolas RN * Telephone Encounter - Josselyn Mayer APRN.CNP - 07/30/2024 10:34 AM EDT Attempted to contact patient and his family to update him on the treatment plan. Left voicemail requesting phone call back. Josselyn Mayer APRN.CNP documented in this encounterMercy Memorial Hospital10-16-2024 Telephone encounter Note * Telephone Encounter - Chely Nicolas RN - 07/31/2024 3:53 PM EDT Gustavo calls requesting a return call at [phone]. Chely Nicolas RN [facility]10-15-2024 NoteHNO ID: [id number] Author: JOSSELYN MAYER APRN.CNP Service: ? Author [...] patient by our office. Josselyn Mayer APRN.CNP 07/30/2024[facility]10-15-20[facility] History of Present illness Narrative* Josselyn Mayer APRN.CNP - 07/30/2024 10:45 AM EDT MULTI DISCIPLINARY HIGH RISK AVR CARDIAC TEAM Members present: Dr. Malcolm, Dr. Thacker, Dr. Norman, Dr. Escalera, Dr. Reddy, Gian Mayer APRN, CNP, Frank Piña CNP, ALEJANDRA Ma., ALEJANDRA Rice, Niels Cardoza CNP, Tj Lmabert CNP, Frank Mello CNP Presenting Physician: see [...] Josselyn Mayer APRN.CNP 07/30/2024 documented in this encounterMercy Memorial Hospital10-15-2024 Telephone encounter Note * Telephone Encounter - Josselyn Mayer APRN.CNP - 07/30/2024 10:34 AM EDT Attempted to contact patient and his family to update him on the treatment plan. Left voicemail requesting phone call back. Josselyn Mayer APRN.CNP [facility]10-11-2024 Telephone encounter Note* Telephone Encounter - Kamran Ayon [facility] - 07/26/2024 4:22 PM EDT Images from the original note were not included. Called and left voice message for daughter January asking her to return call to Pharmacy Anticoagulation Clinic to discuss if Lovenox was started for patient. Josselyn Mayer, ÁLVARO.Chely Cho, RNYe (2:01 PM) I sent 8 syringes to [...] to test INR. Kamran Ayon PharmD, BCPS [facility]10-11-2024 Miscellaneous Notes* Telephone Encounter - Kamran Ayon RPh - 07/26/2024 4:22 PM EDT Images from the original note were not included. Called and left voice message for daughter January asking her to return call to Pharmacy Anticoagulation Clinic to discuss if Lovenox was started for patient. Josselyn Mayer, ÁLVARO.Chely Cho, RNYester (2:01 PM) I sent 8 [...] BCPS * Telephone Encounter - Jimmy Carrizales [facility] - 07/25/2024 11:45 AM EDT Left voice message asking patient at [phone] (home) or daughter Elly to call the Anticoagulation Clinic at [phone] re: patient recenly off warfarin for heart cath on 07/23/24. Patient was prescribed Lovenox 100 mg sq Once daily by cardiology. Next Action for Anti coag Management: TM Remote Jimmy Carrizales PharmD., CACP documented in this encounterMercy Memorial Hospital10-10-2024 Telephone encounter Note * Telephone Encounter - Jimmy Carrizales RPh - 07/25/2024 11:45 AM EDT Left voice message asking patient at [phone] (home) or daughter January to call the Anticoagulation Clinic at [phone] re: patient recenly off warfarin for heart cath on 07/23/24. Patient was prescribed Lovenox 100 mg sq Once daily by cardiology. Next Action for Anti coag Management: Remote Jimmy Carrizales PharmD., CACP [facility]10-08-2024 NoteHNO ID: [id number] Author: PAM REDDY MD Service: Cardiovascular Surgery [...] the groin with 1% lidocaine. A pre-flushed 6-Persian sheath was inserted into the femoral artery [...] Mitchell DATE: July 23, 2024 TIME: 10:19 AMNorthern Light Mercy Hospital10-08-2024 History of Present illness Narrative* Jeremías [...] PATIENT PRESENTS WITH AN IMPLANTABLE OR ATTACHED CORD TIRE BUILDER: No ALLERGIES: Reviewed and unchanged CONTRAST ALLERGY: [...] 2024 TIME: 9:13 AM documented in this encounterMercy Memorial Hospital10-08-2024 NoteHNO ID: [id number] Author: JEREMÍAS LOFTON RT (R) Service: Radiology [...] PATIENT PRESENTS WITH AN IMPLANTABLE OR ATTACHED CORD TIRE BUILDER: No ALLERGIES: Reviewed and unchanged CONTRAST ALLERGY: [...] Mitchell DATE: July 23, 2024 TIME: 9:13 [facility]09-30-2024 Telephone encounter Note* Telephone Encounter - Josselyn Barrow LPN - 07/15/2024 3:19 PM EDT Notified Gustavo. [facility]09-30-2024 Miscellaneous Notes* Telephone Encounter - Josselyn [...] proceeding. Teresa Alexis RN documented in this encounterMercy Memorial Hospital09-30-2024 Telephone encounter Note * Telephone Encounter - Magdalena Laird LPN - 07/15/2024 3:15 PM EDT Son notified of results and provider message. Magdalena Laird LPN [facility]09-30-2024 Miscellaneous Notes* Telephone Encounter - Magdalena [...] does off of meds. documented in this encounterMercy Memorial Hospital09-30-2024 Telephone encounter Note * Telephone Encounter - Guanakito Reno MD - 07/15/2024 2:40 PM EDT Agree. As long as he is aware. [facility]09-30-2024 Telephone encounter Note* Telephone Encounter [...] like PCP recommendationbefore proceeding. Teresa Alexis RN [facility]09-30-2024 Telephone encounter Note* Telephone Encounter - Carolina Alba MA - 07/15/2024 2:14 PM EDT Message left for return call. Carolina Alba MA [facility]09-30-2024 Telephone encounter Note* Telephone Encounter - Guanakito Reno MD - 07/15/2024 1:04 PM EDT Kidney function and anemia are stable. See nephrology as we had recommended. Sugars are overall notbad. Hold on amaryl. Call sugars in two weeks to see how he does off of meds. [facility]09-30-2024 NoteHNO ID: [id number] Author: GUANAKITO RENO MD Service: ? Author Type: Physician Type: Progress Notes Filed: 07/15/2024 08:05 Note Text: Apparently second visit created in error.[facility]09-30-2024 History of Present illness Narrative* Guanakito Reno MD - 07/15/2024 8:03 AM EDT Apparently second visit created in error. documented in this encounterMercy Memorial Hospital09-27-2024 Telephone encounter Note * Telephone Encounter - Guanakito Reno MD - 07/12/2024 12:49 PM EDT Noted. Thank you [facility]09-27-2024 Miscellaneous Notes* Telephone Encounter - Guanakito Reno MD - 07/12/2024 12:49 PM EDT Noted. Thank you * Telephone Encounter - Art Estes - 07/12/2024 12:34 PM EDT Attempted to find sooner apt time for patients nephrology apt, no sooner times within [facility] facilities that are faster than patients [facility] apt. documented in this encounterMercy Memorial Hospital09-27-2024 Telephone encounter Note * Telephone Encounter - Art Estes - 07/12/2024 12:34 PM EDT Attempted to find sooner apt time for patients nephrology apt, no sooner times within [facility] facilities that are faster than patients formerly [facility] apt. [facility]09-27-2024 NoteHNO ID: [id number] Author: GUANAKITO RENO MD Service: ? Author [...] or worsening shortness of breath. Currently wearing [employer] heart monitor. Placed yesterday. Follows with Cardiology. [...] Vaping status: Never Used (more content not included)...[facility]09-27-2024 History of Present illness Narrative* [...] or worsening shortness of breath. Currently wearing [employer] heart monitor. Placed yesterday. Follows with Cardiology. [...] 8 hours as needed. blood sugar diagnostic (Georgina GoodmanTOUCH ULTRA TEST) test strip Test blood sugar(s) one times daily. Dx: 250.00. Insulin: No Lancets (ONE TOUCH DELICA) [facility] lancets Test blood sugar(s) one time daily. [...] ICD10: G30.9, F01.50, F02.80 - stable. 10. 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 Guanakito Reno MD documented in this encounterMercy Memorial Hospital09-25-2024 NoteHNO ID: [id number] Author: PAM REDDY MD Service: ? Author Type: Physician Type: Progress Notes Filed: 07/10/2024 15:17 Note Text: Pam Reddy MD Interventional Cardiology [address] [place], [place] [id number] Chief Complaint Patient presents with: Aortic Stenosis: [...] with significant dementia. Patient follow-up at the [place] [facility] 6 months ago he was completely [...] Laterality Date ARTL CATHJ/CANNULJ MNTR/TRANSFUSION SPX PRQ 7 COLONOSCOPY FLX DX W/COLLJ SPEC WHEN PFRMD [...] 150 Strip 3 Lancets (ONE TOUCH DELICA) [facility] lancets Test blood sugar(s) one time chichi (more content not included)...[facility]09-25-2024 History of Present illness Narrative* Pam Reddy MD - 07/10/2024 3:07 PM EDT Images from the original note were not included. Pam Reddy MD Interventional Cardiology [address] [place], [place] [id number] Chief Complaint Patient presents with: Aortic Stenosis: [...] with significant dementia. Patient follow-up at the [place] [facility] 6 months ago he was completely [...] CTA CHEST (GATED) WO/W IVCON - CARDIAC FROZEN YOGURT MAKER ORDER - EXTENDED WEAR FINISHER SPECIAL STOCKS PATCH - COMPLETE BLOOD COUNT - BASIC [...] 10, 2024 TIME: 8:06 AM PAGER/CONTACT #: [phone] documented in this encounterMercy Memorial Hospital09-25-2024 Nurse Note* Judy Díaz Contestant Coordinator - 07/10/2024 10:00 AM EDT Applied 14 day extended wear EKG patch. Pt verbalized understanding of monitor use / diary. [facility]09-25-2024 Nurse Note* Judy Díaz Contestant Coordinator - 07/10/2024 10:00 AM EDT Applied 14 day extended wear EKG patch. Pt verbalized understanding of monitor use / diary. documented in this encounterMercy Memorial Hospital09-25-2024 NoteHNO ID: [id number] Author: JOSSELYN MAYER APRN.[facility] Service: ? Author Type: Nurse Practitioner Type: Progress Notes Filed: 07/10/2024 15:17 Note Text: Procedure Type: Isolated AVR Perioperative Outcome Estimate % Operative Mortality 9.12% Morbidity AND Mortality 21.6% Stroke 2% Renal Failure 20.9% Reoperation 5.43% Prolonged Ventilation 9.19% Deep Sternal Wound Infection 0.103% Long Hospital Stay (>14 days) 13.4% Short Hospital Stay (<6 days)* 15.7% Josselyn Mayer APRN.CNPNorthern Light [facility]09-25-2024 Instructions* Patient Instructions* Josselyn Mayer APRN.[facility] - 07/10/2024 8:55 AM EDT Images from [...] process is complete. The content on the [employer] website is not intended nor recommended as a substitute for medical advice, diagnosis, or treatment. Always seek the advice of your own physician or other qualified healthcare professional regarding any medical questions or conditions.. 2016 [employer]. All rights reserved. Topic 00117 Version 5.0 documented in this encounterMercy Memorial Hospital09-25-2024 NoteHNO ID: [id number] Author: CAL THACKER MD Service: ? Author Type: Physician Type: Progress Notes Filed: 07/10/2024 09:32 Note Text: PRIMARY CARE PHYSICIAN: Guanakito Reno [address] [place] [address] Subjective Chief Complaint Patient presents with: Aortic [...] Current Out (more content not included)...[facility]09-25-2024 History of Present illness Narrative* Cal Thacker MD - 07/10/2024 8:37 AM EDT PRIMARY CARE PHYSICIAN: Guanakito Reno [address] [place] [address] Subjective Chief Complaint Patient presents with: Aortic [...] 150 Strip 3 Lancets (ONE TOUCH DELICA) [facility] lancets Test blood sugar(s) one time daily. [...] also refer to vascular surgery and a fishing boat captain for further evaluation. Family will discuss how [...] 10, 2024 TIME: 8:13 AM PAGER/CONTACT #: [phone] documented in this encounterMercy Memorial Hospital09-25-2024 NoteHNO ID: [id number] Author: BI CANTU LPN Service: ? Author [...] 10, 2024 TIME: 8:13 AM PAGER/CONTACT #: [id number] Light [facility] Hospital09-25-2024 Note HNO ID: [id number] Author: BI CANTU LPN Service: ? Author [...] 10, 2024 TIME: 8:06 AM PAGER/CONTACT #: 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 [facility]09-03-2024 Miscellaneous Notes* Telephone Encounter - Jimmy Carrizales RPh - 06/18/2024 8:39 AM EDT [facility] Ambulatory Pharmacy Anticoagulation Clinic Anticoagulation Episode Summary Anticoagulation Care Providers Provider Role Specialty Phone number Guanakito Reno MD [facility] [phone] Cal Mitchell is a 78 year old [...] 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: FCI (current) use of anticoagulants Paroxysmal atrial fibrillation [...] Pharmacy Anticoagulation Clinic Pharmacy Anticoagulation Clinic Pager: [phone]. documented in this encounterMercy [facility] Hospital08-22-2024 Instructions* Patient Instructions* Carolina Landeros APRN.CNP - 06/06/2024 12:10 PM EDT 1) Stop Actos 2) Stop melatonin 3) Try to increase protein 4) Follow up in 1 months documented in this encounterMercy Memorial Hospital08-22-2024 NoteHNO ID: [id number] Author: CAROLINA LANDEROS APRN.KOURTNEY Service: ? Author Type: Clinical Nurse Specialist [...] axillary 10/20: REMOVAL IMPACTED CERUMEN INSTRUMENTATION UNILAT 7-14: TEAEC W/PATCH GRF CAROTID VERTB SUBCLAV NECK [...] 250.00. Insulin: No Lancets (ONE TOUCH DELICA) [facility] lancets Test blood sugar(s) one time daily. [...] adenopathy. Skin: General: Sk (more content not included)...[facility]08-22-2024 History of Present illness Narrative* Carolina Landeros APRN.[facility] - 06/06/2024 11:39 AM EDT This is [...] 250.00. Insulin: No Lancets (ONE TOUCH DELICA) [facility] lancets Test blood sugar(s) one time daily. [...] as needed for worsening/no improvement. Carolina Landeros APRN.CNP documented in this encounterMercy Memorial Hospital08-21-2024 Telephone encounter Note * Telephone Encounter - Josselyn Barrow LPN - 06/05/2024 4:53 PM EDT Attempted to reach daughter and her is already here with patient. [facility]08-21-2024 Miscellaneous Notes* Telephone Encounter - Josselyn [...] we can get him scheduled. Corrina Lennon APRN.CNP * Telephone Encounter - Olivia Heredia RN [...] is looking for carole, it would probably beDrTitus Khan? Corrina Lennon APRN.CNP documented in this encounterMercy Memorial Hospital08-21-2024 Telephone encounter Note * Telephone Encounter [...] we can get him scheduled. Corrina Lennon APRN.CNP [facility]08-21-2024 NoteHNO ID: [id number] Author: VALERIE GRUBER APRN.ATHLETIC EVENTS SCORER Service: ? Author Type: Nurse Practitioner Type: Progress Notes Filed: 06/05/2024 17:16 Note Text: This note was created using Pa[employer] Downes Associatesriter. Subjective Cal Mitchell is a 78 year old male. 78 year old male with PMH HTN, hyperlipidemia, afib, PAD, CKD, DM presents for medical complaints. Acute onset of symptoms was over a week ago Patients daughter had sent in a Zoomingo message on 06/03/24. At that time she [...] history is provided by the patient. No english as a second language teacher was used. Edema This is a new [...] 250.00. Insulin: No Lancets (ONE TOUCH DELICA) [facility] lancets Test blood sugar(s) one time daily. [...] Negative for color change (more content not included)...[facility]08-21-2024 History of Present illness Narrative* Valerie Gruber APRN.ATHLETIC EVENTS SCORER - 06/05/2024 4:45 PM EDT This note was created using Pa[employer] Downes Associatesriter. Subjective Cal Mitchell is a 78 year old male. 78 year old male with PMH HTN, hyperlipidemia, afib, PAD, CKD, DM presents for medical complaints. Acute onset of symptoms was over a week ago Patients daughter had sent in a Zoomingo message on 06/03/24. At that time she [...] history is provided by the patient. No english as a second language teacher was used. Edema This is a new [...] change medicines related to chronic conditions. Reviewed [employer] messages where patient was requested to be seen in person by PCP Appt made for AM 06/06/24 Valerie Gruber APRN.ATHLETIC EVENTS SCORER documented in this encounterMercy Memorial Hospital08-21-2024 Telephone encounter Note * Telephone Encounter [...] daughter Elly or son-in-law Gustavo. Thank you. [facility]08-19-2024 Telephone encounter Note* Telephone Encounter - Corrina Lennon APRN.CNP - 06/03/2024 7:42 PM EDT We should probably have him in so we can see his legs and check his blood pressure. Please help schedule. Can we also get him contact info for nephrology. If he is looking for carole, it would probably beDrTitus Khan? Corrina Lennon APRN.KUORTNEY [facility]08-08-2024 Telephone encounter Note* Telephone Encounter - Chely Nicolas RN - 05/23/2024 9:49 AM EDT Images from the original note were not included. Gladys Bella You31 minutes ago (9:17 AM) TR Good Morning. Pt is scheduled for Valve Clinic on 07/10/24 at 8:30 am per Josselyn. [facility]08-08-2024 Miscellaneous Notes* Telephone Encounter - Chely Nicolas RN - 05/23/2024 9:49 AM EDT Images from the original note were not included. Shayne Gladys You31 minutes ago (9:17 AM) TR Good Morning. [...] Let's see at the valve clinic kam * Telephone Encounter - Chely Nicolas RN [...] EDT To: Chely Nicolas RN; Josselyn Mayer APRN.ATHLETIC EVENTS SCORER Aortic stenosis need to establish care at the valve clinic kam * Telephone Encounter - Chely Nicolas RN [...] to establish care at the valve clinic slevirgilio documented in this encounterMercy Memorial Hospital08-08-2024 Telephone encounter Note * Telephone Encounter - Chely Nicolas RN - 05/23/2024 8:27 AM EDT Left message on voicemail requesting pt return call for test results and MD recommendations. Officephone number provided. Chely Nicolas RN [facility]08-08-2024 Telephone encounter Note* Telephone Encounter - Chely Nicolas RN - 05/23/2024 8:26 AM EDT Images from the original note were not included. Pam Reddy MD You; Josselyn Mayer, TEXTILE CONSERVATOR.CNP15 hours ago (4:42 PM) Let's see at the valve clinic kam [facility]08-06-2024 Telephone encounter Note* Telephone Encounter - Claritza Hardin - 05/21/2024 3:10 PM EDT Patient's son in law called in to confirm appointment with Dr. Reddy. Thanks Claritza Smith Wilfred [facility]08-06-2024 Miscellaneous Notes* Telephone Encounter - HardinClaritza Sarah - 05/21/2024 3:10 PM EDT Patient's son in law called in to confirm appointment with Dr. Reddy. Thanks Claritza Smith Wilfred * Telephone Encounter - Josselyn Mayer APRN.CNP [...] you, Josselyn Mayer APRN.CNP documented in this encounterMercy Memorial Hospital08-05-2024 Telephone encounter Note * Telephone Encounter [...] establish care at the valve clinic kam [facility]08-05-2024 Telephone encounter Note* Telephone Encounter - [...] care with Nephrologists. Thank you, Josselyn Mayer APRN.KOURTNEY [facility] Work Phone: 1(110) 125-117108-05-2024 Telephone encounter Note* Telephone Encounter - Chely Nicolas RN - 05/20/2024 9:59 AM EDT Left message on voicemail requesting pt return call for test results. Office phone number provided. Chely Nicolas RN [facility]08-05-2024 Telephone encounter Note* Telephone Encounter - Chely Nicolas RN - 05/20/2024 9:58 AM EDT ----- Message from Pam Reddy MD sent at 05/18/2024 8:44 AM EDT ----- Aortic stenosis need to establish care at the valve clinic kam [facility]08-02-2024 Telephone encounter Note* Telephone Encounter - Dorothy Sainz RPh - 05/17/2024 9:22 AM EDT [facility] Ambulatory Pharmacy Anticoagulation Clinic Anticoagulation Episode Summary Anticoagulation Care Providers Provider Role Specialty Phone number Guanakito Reno MD [facility] [phone] Cal Mitchell is a 78 year old [...] 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 message Advised patient to continue current weekly dose as noted above Next home INR check scheduled on 05/30/2024 Dorothy Sainz RPh Clinical Pharmacist, Pharmacy Anticoagulation Clinic Pharmacy Anticoagulation Clinic Pager: [phone]. 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 message Advised patient to continue current weekly dose as noted above Next home INR check scheduled on 05/30/2024 Dorothy Sainz RPh Clinical Pharmacist, Pharmacy Anticoagulation Clinic Pharmacy Anticoagulation Clinic Pager: [phone]. documented in this encounterMercy Memorial Hospital07-22-2024 Instructions* Patient Instructions* Corrina Lennon APRN.CNP - 05/06/2024 6:38 PM EDT Continue to try to get the stool sample. Continue the same medication. Schedule with nephrology (kidney doctor). Recheck with Dr. Reno in 2 months. documented in this encounterMercy Memorial Hospital07-22-2024 History of Present illness Narrative* Corrina Lennon APRN.CNP - 05/06/2024 6:09 PM EDT This is [...] a fall. Was outside and grabbed the [id number] and shook it for a few seconds [...] as needed for worsening/no improvement. Corrina Lennon APRN.ATHLETIC EVENTS SCORER documented in this encounterMercy Memorial Hospital07-18-2024 History of Present illness Narrative* Jody [...] PATIENT PRESENTS WITH AN IMPLANTABLE OR ATTACHED CORD TIRE BUILDER: No RADIOLOGY DEPARTMENT: Ultrasound PERIPHERAL IV DATA: Not applicable SIGNED BY: Jody Queen RDMS May 02, 2024 10:49 AM documented in this encounterMercy Memorial Hospital07-15-2024 Telephone encounter Note * Telephone Encounter - Stephany Graves MA - 04/29/2024 9:48 AM EDT Spoke with daughter. She stated she was suppose to call the local flat grinder operator but didn't have the number and then forgot to call office to get it. Also she is not able to log into the minicabithart account, states she forgot password. I have sent number for Dr. Khan to pt home along with mychart number so she can get mychart account fixed and call to set up his appt with flat grinder operator. Pt needs refill of Lipitor sent to [facility]. Stephany Graves MA [facility]07-15-2024 Miscellaneous Notes* Telephone Encounter - Stephany Graves MA - 04/29/2024 9:48 AM EDT Spoke with daughter. She stated she was suppose to call the local flat grinder operator but didn't have the number and then forgot to call office to get it. Also she is not able to log into the minicabithart account, states she forgot password. I have sent number for Dr. Khan to pt home along with mychart number so she can get mychart account fixed and call to set up his appt with flat grinder operator. Pt needs refill of Lipitor sent to [...] nephrology? Was ordered previously. 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 message Advised patient to continue current weekly dose as noted above Next home INR check scheduled on 05/07/2024 Ruthie Cuevas RPh Clinical Pharmacist, Pharmacy Anticoagulation Clinic Pharmacy Anticoagulation Clinic Pager: [phone]. 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 message Advised patient to continue current weekly dose as noted above Next home INR check scheduled on 05/07/2024 Ruthie Cuevas RPh Clinical Pharmacist, Pharmacy Anticoagulation Clinic Pharmacy Anticoagulation Clinic Pager: [phone]. documented in this encounterMercy Memorial Hospital07-05-2024 Telephone encounter Note * Telephone Encounter - Geovanna Hinds MA - 04/19/2024 4:14 PM EDT Left message for patient to return call. Geovanna Hinds Ma [facility]07-05-2024 Telephone encounter Note* Telephone Encounter - Guanakito Reno MD - 04/19/2024 3:46 PM EDT Anemia is stable. I still need an ifobt done since he is on blood thinners to rule out gi blood loss. It may well be related to his kidneys. They are stable but worse. Did he get set up with nephrology? Was ordered previously. [facility]06-24-2024 Telephone encounter Note* Telephone Encounter - Corrina Lennon APRN.CNP - 04/08/2024 3:45 PM EDT Pt aware. Corrina Lennon APRN.ATHLETIC EVENTS SCORER [facility]06-24-2024 Miscellaneous Notes* Telephone Encounter - Corrina Lennon APRN.CNP - 04/08/2024 3:45 PM EDT Pt aware. Corrina Lennon APRN.ATHLETIC EVENTS SCORER * Telephone Encounter - Josselyn Barrow LPN [...] two weeks. See nephrology documented in this encounterMercy Memorial Hospital06-24-2024 Telephone encounter Note * Telephone Encounter - Alejandro Molina RPh - 04/08/2024 3:36 PM EDT [facility] Pharmacy Anticoagulation Clinic Anticoagulation Episode Summary Anticoagulation Care Providers Provider Role Specialty Phone number Guanakito Reno MD [facility] [phone] Cal Mitchell is a 78 year old [...] Pharmacy Anticoagulation Clinic Pharmacy Anticoagulation Clinic Pager: [phone]. [facility]06-24-2024 Miscellaneous Notes* Telephone Encounter - Alejandro Molina RPh - 04/08/2024 3:36 PM EDT [facility] Pharmacy Anticoagulation Clinic Anticoagulation Episode Summary Anticoagulation Care Providers Provider Role Specialty Phone number Guanakito Reno MD [facility] [phone] Cal Mitchell is a 78 year old [...] Pharmacy Anticoagulation Clinic Pharmacy Anticoagulation Clinic Pager: [phone]. documented in this encounterMercy Memorial Hospital06-24-2024 Instructions* Patient Instructions* Corrina Lennon APRN.CNP - 04/08/2024 3:11 PM EDT Continue the same medication. Get the repeat labs in 2 weeks. Get the echo, carotid ultrasound, kidney ultrasound as planned. Schedule w/ nephrology. Schedule back in 1 month for recheck. documented in this encounterMercy Memorial Hospital06-24-2024 History of Present illness Narrative* Corrina [...] - Follow up with kidney medicine - US Kidney/Bladder scheduled 05/02/2024 - LISINOPRIL 20 MG [...] agrees with the plan. documented in this encounterMercy Memorial Hospital06-22-2024 Telephone encounter Note * Telephone Encounter - Nabila Jimenez [facility] - 04/06/2024 4:33 PM EDT Called and [...] Diana Jimenez PharmD, MPH Anticoagulation Clinic Pharmacist [phone] [facility]06-22-2024 Miscellaneous Notes* Telephone Encounter - Nabila [...] Diana Jimenez PharmD, MPH Anticoagulation Clinic Pharmacist [phone] * Telephone Encounter - Nabila Jimenez RPh - 04/06/2024 3:49 PM EDT Called and LM for patient and sent [employer] referenced in (though patient has not logged into [employer]oom[employer] since December). Patient was asked to call/page PAC at next convenience to confirm receipt of message Will follow up on Monday and expect next INR on that date Diana Jimenez PharmD, MPH Anticoagulation Clinic Pharmacist [phone] * Telephone Encounter - Yamilka Heath RN - 04/04/2024 1:14 PM EDT Alana Perez calling in INR result today (04/04.) result has been addressed below. 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 documented in this encounterMercy Memorial Hospital06-22-2024 Telephone encounter Note * Telephone Encounter - Nabila Jimenez RPh - 04/06/2024 3:49 PM EDT Called and LM for patient and sent [employer] referenced in VM (though patient has not logged into [employer] since December). Patient was asked to call/page PAC at next convenience to confirm receipt of message Will follow up on Monday and expect next INR on that date Diana Jimenez, SamirD, MPH Anticoagulation Clinic Pharmacist [phone] [facility]06-21-2024 Telephone encounter Note* Telephone Encounter - Josselyn Barrow LPN - 04/05/2024 4:25 PM EDT Has visit scheduled with Corrina on Monday will route to their pool. If he keeps that appt can you please close for us? Thank you. [facility]06-21-2024 Telephone encounter Note* Telephone Encounter - Carolina Alba MA - 04/05/2024 4:19 PM EDT No answer. Left detailed message stating we were calling in regards to results and needing to discuss a few things. Advised to return call. Carolina Alba MA [facility]06-21-2024 Telephone encounter Note* Telephone Encounter - Jonelle Worley LPN - 04/05/2024 10:41 AM EDT Phoned patient left message to return call and ask to speak to a nurse. [facility]06-21-[facility]24 Telephone encounter Note* Telephone Encounter - Guanakito Reno MD - 04/05/2024 10:21 AM EDT Anemia is stable. May be related to his kidneys. Renal function continues to be slightly worse. Get renal us as ordered. Check ifobt. Recheck labs in two weeks. See nephrology [facility]06-20-2024 Telephone encounter Note* Telephone Encounter - Yamilka Heath RN - 04/04/2024 1:14 PM EDT Alana Perez calling in INR result today (04/04.) result has been addressed below. 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 [facility]06-11-2024 Instructions* Patient Instructions* Guanakito Reno MD - 03/26/2024 5:00 PM EDT Stop lisinopril hctz Start lisinopril. Call if any shortness of breath or edema. Weigh daily. Call us if you gain more than 3-4 lbs in a 24 hour period Get carotid ultrasound Recheck labs end of this week or early next. documented in this encounterMercy Memorial Hospital06-11-2024 History of Present illness Narrative* Guanakito [...] mg daily. Needs 30 day supply to [employer] while waiting for shipment from [employer]. No myalgias HTN: Continues on Zestoretic 20-12.5 [...] ICD10: G30.9, F01.50, F02.80 - stable. 9. FCI (current) use of anticoagulants - ICD9: V58.61, [...] two weeks or prn. documented in this encounterMercy Memorial Hospital06-10-2024 History of Present illness Narrative* Pam Reddy MD - 03/25/2024 5:19 PM EDT Images from the original note were not included. Pam Reddy MD Interventional Cardiology [address] [place] [address] [phone] Chief Complaint Patient presents with: Follow Up [...] Laterality Date ARTL CATHJ/CANNULJ MNTR/TRANSFUSION SPX PRQ 7-3- COLONOSCOPY FLX DX W/COLLJ SPEC WHEN PFRMD 40 years ago Colonoscopy COLONOSCOPY FLX DX W/COLLJ SPEC WHEN PFRMD 03/02/11 DSTRJ LESION PENIS SIMPLE CHEMICAL 10/20 PAST SURGICAL HISTORY OF Skin tag removals - bilateral axillary REMOVAL IMPACTED CERUMEN INSTRUMENTATION UNILAT 10/20 TEAEC W/PATCH GRF CAROTID VERTB SUBCLAV NECK INC 7 RIGHT FAMILY HISTORY Problem Relation Age of [...] 8 hours as needed. blood sugar diagnostic ([employer] ULTRA TEST) test strip Test blood sugar(s) [...] to correct any errors. documented in this encounterMercy Memorial Hospital05-24-2024 History of Present illness Narrative* Melania Galindo, RN - 03/08/2024 8:42 AM EDTSummary: Medication [...] of . Patient Attributed To: QAE Payer: [employer] [place] Action Taken: Data submitted to Payer [employer] message to patient Notation made to upcoming appointment notes requesting provider follow up Contact made with patient: No, Chart review only. 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 [facility]05-23-[facility]24 Miscellaneous Notes* Telephone Encounter - Jimmy Carrizales RPh - 03/07/2024 11:54 AM EDT [facility] Anticoagulation Episode Summary Anticoagulation Care Providers Provider Role Specialty Phone number Guanakito Reno MD [facility] Medicine [phone] Cal Mitchell is a 78 year old [...] 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: FCI (current) use of anticoagulants Paroxysmal atrial fibrillation [...] Pharmacy Anticoagulation Clinic Pharmacy Anticoagulation Clinic Pager: [phone]. documented in this encounterMercy Memorial Hospital05-01-2024 Telephone encounter Note * Telephone Encounter - Ruthie Cuevas RPh - 02/14/2024 9:04 AM EDT [facility] Anticoagulation Episode Summary Anticoagulation Care Providers Provider Role Specialty Phone number Guanakito Reno MD [facility] Medicine [phone] Cal Mitchell is a 78 year old [...] 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: FCI (current) use of anticoagulants Paroxysmal atrial fibrillation [...] Pharmacy Anticoagulation Clinic Pharmacy Anticoagulation [facility] Pager: [phone]. 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 documented in this encounterMercy Memorial Hospital04-03-2024 Miscellaneous Notes* Telephone Encounter - Darrell [...] Thank you. Betzy Colvin. documented in this encounterMercy Memorial Hospital04-03-2024 Miscellaneous Notes* Telephone Encounter - Betzy Colvin - 01/17/2024 3:22 PM EDT Patient's daughter calling to request medication that is on patient list pioglitazone (ACTOS) 15 mg tablet Please send to [facility]. documented in this encounterMercy Memorial Hospital04-01-2024 Miscellaneous Notes* Telephone Encounter - Alejandro Molina RPh - 01/15/2024 10:32 AM EDT [facility] Anticoagulation Episode Summary Anticoagulation Care Providers Provider Role Specialty Phone number Guanakito Reno MD [facility] Medicine [phone] Cal Mitchell is a 78 year old [...] instructed to call [facility] at [phone] with any questionsor concerns. Alejandro Molina RP Clinical Pharmacist, Pharmacy Anticoagulation Clinic Pharmacy Anticoagulation Clinic Pager: [phone] documented in this encounterMercy Memorial Hospital03-08-2024 Instructions* Patient Instructions* Carolina Landeros APRN.CNS - 12/22/2023 3:30 PM EST 1) Telfa dressing change daily 2) Letter for [facility] 3) Follow up in 4) Melatonin 3mg qhs and may repeat once through night if needed documented in this encounterMercy Memorial Hospital03-08-2024 History of Present illness Narrative* Carolina [...] airway obstruction, not elsewhere classified 10/20 Diabetes ([facility]) Diverticulosis of colon (without mention of hemorrhage) [...] pain,every 5 min x3 blood sugar diagnostic (Georgina GoodmanTOUCH ULTRA TEST) test strip Test blood sugar(s) one times daily. Dx: 250.00. Insulin: No Lancets (ONE TOUCH DELICA) [facility] lancets Test blood sugar(s) one time daily. [...] as needed for worsening/no improvement. Carolina Landeros APRN.FEATHER BONER The patient indicates understanding of these issues and agrees with the plan. documented in this encounterMercy Memorial Hospital03-07-2024 Miscellaneous Notes* Telephone Encounter - Teresa [...] 5:07 PM EST Please see provider, Elma Suppan routing comment: This patient needs a CT [...] at this time. Scheduled with Carolina Landeros CONVENTION SERVICES MANAGER on 12/22/23 per daughter's request. Reviewed triage [...] 7. 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 documented in this encounterMercy Memorial Hospital02-19-2024 Miscellaneous Notes* Telephone Encounter - Daniel JansenMagnetic Tape Composer OperatorAshley Granados - 12/04/2023 11:53 AM EST PATIENT CALL Received call from Summer with [facility] to report home meter result for patient. [facility] hasalready addressed this result (see below); nothing further needed at this time. Ashley Sanchez CPhT ([employer] Lab Technician) Pharmacy Anticoagulation Clinic * Telephone Encounter - Alejandro Molina RPh - 12/04/2023 9:44 AM EST [facility] Anticoagulation Episode Summary Anticoagulation Care Providers Provider Role Specialty Phone number Guanakito Reno MD [facility] [phone] Cal Mitchell is a 78 year old [...] instructed to call [facility] at [phone] with any questionsor concerns. 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 documented in this encounterMercy Memorial Hospital11-21-2023 History of Present illness Narrative* Mouna Vallecillo RN - 09/05/2023 1:48 PM ESTSummary: Medication Adherence review per request of payer ACM LUIS RN Action/FYI: Medication Adherence review completed per request of payer. NO PROVIDER ACTION REQUIRED Patient identified by name and date of . Patient Attributed To: [facility] Payer: [facility] Reason for review or outreach: Medication Adherence Medication Adherence Review Details: Diabetes Summary / Findings: GLIMEPIRIDE -- Refill Due - 07/18/2023 ATORVASTATIN -- Refill Due - 08/21/2023 Pharmacy - [facility] - Action Taken: Data submitted to [employer] message to patient Contact made with patient: No, Chart review only. documented in this encounterMercy Memorial Hospital11-07-2023 Miscellaneous Notes* Telephone Encounter - Twin Cole RPh - 08/22/2023 9:46 AM EST [facility] An[facility] Anticoagulation Episode Summary Anticoagulation Care Providers Provider Role Specialty Phone number Guanakito Reno MD [facility] [phone] Cal Mitchell is a 78 year old [...] Pharmacy Anticoagulation Clinic Pharmacy Anticoagulation Clinic Pager: [phone]. documented in this encounterMercy Memorial Hospital11-01-2023 Miscellaneous Notes* Telephone Encounter - Gerardo Fountain LPN - 08/16/2023 11:45 AM EDT January advised of osorio. Gerardo Fountain LPN * Telephone Encounter - [...] states "one." Please phone January with reply: [phone] Copied and pasted provider's message from previous encounter: Sugars are really good. Stop his glimepiride. Call sugars in two weeks. His kidney function is worse, recheck labs in one . Make sure drinking adequate fluids. documented in this encounterMercy Memorial Hospital10-31-2023 Miscellaneous Notes* Telephone Encounter - Niels [...] sure drinking adequate fluids. documented in this encounterMercy Memorial Hospital10-30-2023 History of Present illness Narrative* Guanakito [...] YR, HIGH DOSE, QUADRIVALENT (FLUZONE HIGH-DOSE) - PFIZER-BIONTECH COVID-19 VACCINE ( SEASON) AGE 12+ YR 13. 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 documented in this encounterMercy Memorial Hospital09-19-2023 Miscellaneous Notes* Telephone Encounter - Pily Cuevas - 07/04/2023 3:50 PM EDT Patient needs to have a gap supply sent to [facility] as well please send at least a weeks worth. Patient has been identified by name and date of : Yes Requested Prescriptions Pending Prescriptions Disp Refills lisinopril-hydroCHLOROthiazide (ZESTORETIC) 20-12.5 mg per tablet 90 tablet 0 Sig: Take 1 tablet by mouth every morning. RX INSTRUCTIONS: Patient aware RX escripted to mail away pharmacy. No need to notify patient. Pily Horne documented in this encounterMercy Memorial Hospital09-12-2023 History of Present illness Narrative* Lizette Cardenas RN - 2023 3:08 PM EDT ACM LUIS RN Action/FYI: Medication Adherence review completed per request of payer. NO PROVIDER ACTION REQUIRED Please see requests in the Summary/Findings section below Patient identified by name and date of . Patient Attributed To: [facility] Payer: [facility] Reason for review or outreach: Medication Adherence Medication Adherence Review Details: Hypertension Summary / Findings: Lisinopril was due for refill on: 05/16/23 [facility] Action Taken: Data submitted to [employer] message to patient Other Contact made with patient: No, Chart review only. Signature: Lizette Cardenas RN documented in this encounterMercy Memorial Hospital08-07-2023 Miscellaneous Notes* Telephone Encounter - Alejandro Molina RPh - 05/22/2023 10:12 AM EDT [facility] Anticoagulation Episode Summary Anticoagulation Care Providers Provider Role Specialty Phone number Guanakito Reno MD [facility] [phone] Cal Mitchell is a 77 year old [...] instructed to call [facility] at [phone] with any questionsor concerns. Alejandro Molina RPh Clinical Pharmacist, Pharmacy Anticoagulation Clinic Pharmacy Anticoagulation Clinic Pager: [phone] documented in this encounterMercy Memorial Hospital07-10-2023 Miscellaneous Notes* Telephone Encounter - Alejandro Molina RPh - 04/24/2023 10:04 AM EDT [facility] Anticoagulation Episode Summary Anticoagulation Care Providers Provider Role Specialty Phone number Guanakito Reno MD [facility] [phone] Cal Mitchell is a 77 year old [...] Pharmacy Anticoagulation Clinic Pharmacy Anticoagulation Clinic Pager: [phone]. documented in this encounterMercy Memorial Hospital07-05-2023 Miscellaneous Notes* Telephone Encounter - Anna [...] patient. Leslie Perez Pss documented in this encounterMercy Memorial Hospital06-13-2023 Miscellaneous Notes* Telephone Encounter - Twin Cole RPh - 03/28/2023 3:22 PM EDT [facility] Anticoagulation Clinic Anticoagulation Episode Summary Anticoagulation Care Providers Provider Role Specialty Phone number Guanakito Reno MD [facility] Medicine [phone] Cal Mitchell is a 77 year old [...] Pharmacy Anticoagulation Clinic Pharmacy Anticoagulation Clinic Pager: [phone]. documented in this encounterMercy Memorial Hospital05-01-2023 History of Present illness Narrative* Dory Mayers RN - 02/13/2023 4:13 PM EDT EVENT MONITOR DISPOSABLE PATCH INSTRUCTIONS Patient Name: Cal [facility] Number: [id number] Skin prepped and cleansed with alcohol Patch secured to prepped area Monitor Activated Serial #: [id number] Patient Instructed: Prescribed order timeframe Bathing guidelines Usage of event button and diary documentation Return of monitor at the end of prescribed order Call with problems [phone] or [phone]. [phone] Patient expresses a good understanding of instructions Dory Mayers RN * Pam Reddy MD - 02/13/2023 4:01 PM EDT Images from the original note were not included. Pam Reddy MD Interventional Cardiology [facility] [address], [place] [address] [phone] Chief Complaint Patient presents with: Established Patient [...] Laterality Date ARTL CATHJ/CANNULJ MNTR/TRANSFUSION SPX PRQ 7-- COLONOSCOPY FLX DX W/COLLJ SPEC WHEN PFRMD 40 years ago Colonoscopy COLONOSCOPY FLX DX W/COLLJ SPEC WHEN PFRMD 03/02/11 DSTRJ LESION PENIS SIMPLE CHEMICAL 10/20 PAST SURGICAL HISTORY OF Skin tag removals - bilateral axillary REMOVAL IMPACTED CERUMEN INSTRUMENTATION UNILAT 10/20 TEAEC W/PATCH GRF CAROTID VERTB SUBCLAV NECK INC 7-3-14 RIGHT FAMILY HISTORY Problem Relation Age of [...] 8 hours as needed. blood sugar diagnostic (Georgina GoodmanTOUCH ULTRA TEST) test strip Test blood sugar(s) [...] to correct any errors. documented in this encounterMercy Memorial Hospital04-24-2023 History of Present illness Narrative* Guanakito [...] 250.00. Insulin: No Lancets (ONE TOUCH DELICA) [facility] lancets Test blood sugar(s) one time daily. [...] YR Guanakito Reno MD documented in this encounterMercy Memorial Hospital04-03-2023 Miscellaneous Notes* Telephone Encounter - Corrina [...] notify patient. 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 Jimmy Carrizales [facility] Clinical Pharmacist, Pharmacy Anticoagulation Clinic Pharmacy Anticoagulation Clinic Pager: [phone]. 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 LM for both the pt and his daughter, January. Ruthie Cuevas RPh Clinical Pharmacist, Pharmacy Anticoagulation Clinic Pharmacy Anticoagulation Clinic Pager: [phone]. * Telephone Encounter - Alejandro Molina RPh - 01/09/2023 4:34 PM EDT Patient was due to test INR today. Will continue to monitor for results. documented in this encounterMercy Memorial Hospital03-06-2023 Miscellaneous Notes* Telephone Encounter - Alejandro Molina RPh - 12/19/2022 10:37 AM EST [facility] Pharmacy Anticoagulation Clinic Anticoagulation Episode Summary Anticoagulation Care Providers Provider Role Specialty Phone number Guanakito Reno MD Responsible [facility] [phone] Cal Mitchell is a 77 year old [...] instructed to call [facility]tico[facility] at [phone] with any questionsor concerns. Alejandro Molina RPh Clinical Pharmacist, Pharmacy Anticoagulation Clinic Pharmacy Anticoagulation Clinic Pager: [phone] documented in this encounterMercy Memorial Hospital02-13-2023 Miscellaneous Notes* Telephone Encounter - Alejandro Molina RPh - 11/28/2022 10:18 AM EST [facility] Pharmacy Anticoagulation Clinic Anticoagulation Episode Summary Anticoagulation Care Providers Provider Role Specialty Phone number Guanakito Reno MD [facility] [phone] Cal Mitchell is a 77 year old [...] 11/28/2022 Full warfarin instructions: 7.5 mg every Mon, Kaye; 5 mg all other days Left voice message Advised patient to decrease dose for 1 day only then resume weekly regimen Next INR check due on 12/09/2022 Patient instructed to call [facility] at [phone] with any questionsor concerns. Alejandro Molina RPh Clinical Pharmacist, Pharmacy Anticoagulation Clinic Pharmacy Anticoagulation Clinic Pager: [phone] documented in this encounterMercy Memorial Hospital02-03-2023 Miscellaneous Notes* Telephone Encounter - Kamran Ayon RPh - 11/18/2022 12:49 PM EST Patient due to test INR today. Will continue to monitor for results. 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 message Advised patient to continue current weekly dose as noted above Next home INR check scheduled on 11/18/2022 Kamran Ayon RPh Clinical Pharmacist, Pharmacy Anticoagulation Clinic Pharmacy Anticoagulation Clinic Pager: [phone]. documented in this encounterMercy Memorial Hospital01-17-2023 Miscellaneous Notes* Telephone Encounter - Twin Cole RPh - 11/01/2022 10:30 AM EST Patient due to test INR today. Will continue to monitor for results. 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 * Telephone Encounter - Ruthie Cuevas RPh - 10/19/2022 4:33 PM EST Patient was due to test INR today will continue to monitor for results. Ruthie Cuevas PharmD documented in this encounterMercy Memorial Hospital12-20-2022 History of Present illness Narrative* Alondra Prescott DO - 10/04/2022 10:58 AM EST This office note has been dictated. Alondra Prescott DO * Alondra Prescott DO - 10/04/2022 12:00 AM EST NAME: CAL MITCHELL [facility] NO: [id number] DATE OF SERVICE: 10/04/2022 Subjective: Mr. Mitchell [...] concerns. Alondra Prescott D.O. KB/[id number] Audio #: [id number] Date Dictated: 10/04/2022 10:13:59 Date Typed: 10/05/2022 14:12:47 Date Revised: documented in this encounterMercy Memorial Hospital12-15-2022 Miscellaneous Notes* Telephone Encounter - Jimmy Carrizales [facility] - 09/29/2022 4:38 PM EST [facility] Anticoagulation Episode Summary Anticoagulation Care Providers Provider Role Specialty Phone number Guanakito Reno MD [facility] Medicine [phone] Cal Mitchell is a 77 year old [...] 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: FCI (current) use of anticoagulants Paroxysmal atrial fibrillation [...] Pharmacy Anticoagulation Clinic Pharmacy Anticoagulation Clinic Pager: [phone]. * Telephone Encounter - Ruben Cunningham (Magnetic Tape Composer Operator) - 09/29/2022 2:23 PM EST PATIENT CALL Patient's daughter January called call center regarding results. Patient's daughter stated the INR result was 1.9 last night at 9:30 pm and gave him an extra 1/2 tablet of warfarin. Elly will reach out to De to report result and to have them troubleshoot application for new phone. PT INR (no units) Date Value 01/24/2022 2.1 biotel 10/26/2021 2.1 (Biotel) 03/04/2021 2.4 INR Home CoaguChek (no units) Date Value 09/14/2022 1.8 07/29/2022 2.2 07/04/2022 2.7 Patient stated she lets blocked calls go to [employer]. She asked if she needed to be near the meterto report the results over the phone to De--advised her I am not sure. Elly can be reached at [phone] Ruben Cunningham (Magnetic Tape Composer Operator) * Telephone Encounter - Ruthie Cuevas RPh [...] PharmD Pharmacy Anticoagulation Clinic documented in this encounterMercy Memorial [facility] Miscellaneous Notes* Telephone Encounter - Yasemin [...] and advise. Yasemin Cook documented in this encounterMer[facility]12[facility] Miscellaneous Notes* Telephone Encounter - Yamilka [...] patient's name. Messaged Christine and Quoc at [email or web address]. Apurva Heath RN Pharmacy Anticoagulation Clinic * Telephone Encounter - Jimmy [facility] - 09/15/2022 10:24 AM EST [facility] Anticoagulation Episode Summary Anticoagulation Care Providers Provider Role Specialty Phone number Guanakito Reno MD [facility] [phone] Cal Mitchell is a 77 year old [...] 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: FCI (current) use of anticoagulants Paroxysmal atrial fibrillation (hcc) Anticoagulation Episode Summary Current INR goal: 2.0-3.0 Assessment: INR result of is SUBtherapeutic due to: unknown cause - did not speak to patient Plan: Current Warfarin Dosing As of 08/22/2022 Full warfarin instructions: 09/15: 7.5 mg; Otherwise 7.5 mg every Tue; 5 mg all other days; Gpwthefc81/7/2022 Called and spoke to patient/caregiver - per demographics we only have daughter's phone number but no identifier Advised patient to increase dose for 1 day only then resume weekly regimen Next home INR check scheduled on 09/21/2022 Jimmy Carrizales [facility] Clinical Pharmacist, Pharmacy Anticoagulation Clinic Pharmacy Antico[facility] Pager: [phone]. * Telephone Encounter - Alejandro Molina RP - 09/05/2022 5:31 PM EST Added to discharge list. * Telephone Encounter - Ruthie Cuevas RP - 08/29/2022 4:49 PM EST Cal Mitchell was called and reminded to test INR today or as soon as possible. LM on his home/cell number. Ruthie Cuevas PharmD Pharmacy Anticoagulation Clinic * Telephone Encounter - Alejandro Molina RPh - 08/22/2022 4:42 PM EST Patient was due to test INR today. Will continue to monitor for results. documented in this encounterMercy [facility] Hospital11-23-2022 History of Present illness Narrative* Lizette Cardenas RN - 09/07/2022 6:24 AM EST ACM LUIS RN Action/FYI: Medication Adherence review completed per request of [facility]. NO PROVIDER ACTION REQUIRED Lisinopril/Hctz 20-12.5mg Last filled: 05/21/22 Days Supply: 90 Refill Due: 08/19/22 Pharmacy: [facility] Atorvastatin 80mg Last filled: 03/20/22 Days Supply: 90 Refill Due: 06/28/22 Pharmacy: [facility] MY CHART MESSAGE SENT Patient identified by name and date of . Patient Attributed To: E Payer: [facility] Reason for review or outreach: Medication Adherence Medication Adherence Review Details: Cholesterol and Hypertension Summary / Findings: As per above Action Taken: Data submitted to [employer] message to patient Contact made with patient: No, Chart review only. Signature: Lizette Cardenas RN documented in this encounterMercy Memorial Hospital10-31-2022 History of Present illness Narrative* Pam Reddy MD - 08/15/2022 3:48 PM EDT Images from the original note were not included. Pam Reddy MD Interventional Cardiology [facility] [address], [place] [address] [phone] Chief Complaint Patient presents with: Consult HISTORY [...] 150 Strip 3 Lancets (ONE TOUCH DELICA) [facility] lancets Test blood sugar(s) one time daily. [...] to correct any errors. documented in this encounterMercy Memorial Hospital10-17-2022 Miscellaneous Notes* Telephone Encounter - Alejandro Molina RPh - 08/01/2022 9:52 AM EDT [facility] Anticoagulation Episode Summary Anticoagulation Care Providers Provider Role Specialty Phone number Guanakito Reno MD [facility] [phone] Cal Mitchell is a 77 year old [...] instructed to call [facility] at [phone] with any questionsor concerns. Alejandro Molina RPh Clinical Pharmacist, Pharmacy Anticoagulation Clinic Pharmacy Anticoagulation Clinic Pager: [phone] documented in this encounterMercy Memorial Hospital10-07-2022 Miscellaneous Notes* Telephone Encounter - Darrell [...] advise. Darrell Meyer LPN documented in this encounterMercy Memorial Hospital09-20-2022 Miscellaneous Notes* Telephone Encounter - Twin Cole, [facility] - 07/05/2022 9:30 AM EDT [facility] Anticoagulation Episode Summary Anticoagulation Care Providers Provider Role Specialty Phone number Guanakito Reno MD [facility] [phone] Cal Mitchell is a 77 year old [...] Pharmacy Anticoagulation Clinic Pharmacy Anticoagulation Clinic Pager: [phone]. * Telephone Encounter - Alejandro Molina RPh - 07/04/2022 3:42 PM EDT Cal Lua Paula was called and reminded to test INR today or as soon as possible. * Telephone Encounter - Alejandro Molina RPh - 2022 4:11 PM EDT Patient was due to test INR today. Will continue to monitor for results. documented in this encounterMercy Memorial Hospital08-30-2022 Miscellaneous Notes* Telephone Encounter - Twin Cole RPh - 06/14/2022 9:14 AM EDT [facility] Anticoagulation Episode Summary Anticoagulation Care Providers Provider Role Specialty Phone number Guanakito Reno MD [facility] [phone] Cal Lua Paula is a 76 year old year old [...] Pharmacy Anticoagulation Clinic Pharmacy Anticoagulation Clinic Pager: [phone]. * Telephone Encounter - Val Oliver RPh - 06/13/2022 9:09 AM EDT [employer] message sent as a reminder to test INR RAISSA. * Telephone Encounter - Alejandro Molina RPh - 06/06/2022 4:50 PM EDT Patient was due to test INR today. Will continue to monitor for results. documented in this encounterMercy Memorial Hospital08-30-2022 History of Present illness Narrative* Nirmala Lim MA - 06/14/2022 9:03 AM EDT POPULATION HEALTH NAVIGATION OUTREACH Action/FYI Called and left a message to call [phone], to discuss health maintenance items that are due. Sent My Chart message. PCP appt: 01/19- needs follow up per last ov note My chart activation: active Advance directive: needs info HM due: Follow up ARIAN AD Pt identified by name and : NO Outreach Outcome/Action Unable to reach patient: Left message [employer] message sent Did you use a PCP flex slot to schedule this appointment? N/A Reason for Outreach Care Gap or Scheduling/Wellness visits Payer: Payor: [facility] / Plan: UHC AARP MEDICARE HMO [...] 14, 2022 9:05 AM documented in this encounterMercy Memorial Hospital08-04-2022 Miscellaneous Notes* Telephone Encounter - Huong Whittaker Ma - 05/19/2022 12:50 PM EDT Patient last visit with PCP 01/19/22 Follow up appointment scheduled none Huong Whittaker Ma * Telephone Encounter - Yasemin Hrone - 05/19/2022 12:01 PM EDT Patient's daughter, Socorro, is calling to renew her dad's scripts through [facility]. His Lisinopril may not make it to him in time, so would like another 14 day script sent locally andthen the traditional 90 day with refill sent to [facility]. * Telephone Encounter - Yasemin Garcia Pss - 05/19/2022 11:56 AM EDT Pharmacy verified in [facility] Patient has been identified by name [...] advise. Yasemin Garcia Pss documented in this encounterMercy Memorial Hospital08-01-2022 Miscellaneous Notes* Telephone Encounter - Alejandro Molina RP - 05/16/2022 11:54 AM EDT [facility] Anticoagulation Episode Summary Anticoagulation Care Providers Provider Role Specialty Phone number Guanakito Reno MD [facility] [phone] Cal Mitchell is a 76 year old [...] instructed to call [facility] at [phone] with any questionsor concerns. Alejandro Molina RPh Clinical Pharmacist, Pharmacy Anticoagulation Clinic Pharmacy Anticoagulation Clinic Pager: [phone] documented in this encounterMercy Memorial Hospital07-11-2022 Miscellaneous Notes* Telephone Encounter - Val Oliver RPh - 04/25/2022 7:56 AM EDT Last INR due around 04/18. [employer] message sent as a reminder to test INR RAISSA. PT INR (no units) Date Value 01/24/2022 2.1 biotel 10/26/2021 2.1 (Biotel) 03/04/2021 2.4 INR Home CoaguChek (no units) Date Value 04/02/2022 2.2 03/09/2022 2.6 02/10/2022 3.4 documented in this encounterMercy Memorial Hospital06-15-2022 Miscellaneous Notes* Telephone Encounter - Ruthie Cuevas RPh - 03/30/2022 2:31 PM EDT Cal Mitchell [...] either. Ruthie Cuevas PharmD documented in this encounterMercy Memorial Hospital06-01-2022 Miscellaneous Notes* Telephone Encounter - Nicki Nieto - 03/16/2022 10:46 AM EDT Patient is scheduled for an appt on 03/22/22 in [place]. Did call the patient to see if any external imagine has been complete, left VM to call the office Or record indicates no testing has been completed since 2019 Would you like an updated carotid US Order pending please sign if correct Thanks documented in this encounterMercy Memorial Hospital05-25-2022 Miscellaneous Notes* Telephone Encounter - Ruthie Cuevas RPh - 03/09/2022 4:08 PM EDT [facility] Anticoagulation Episode Summary Anticoagulation Care Providers Provider Role Specialty Phone number Guanakito Reno MD [facility] [phone] Cal Mitchell is a 76 year old [...] 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: FCI (current) use of anticoagulants Paroxysmal atrial fibrillation (hcc) Anticoagulation Episode Summary Current INR goal: 2.0-3.0 Assessment: INR result of 2.6 is therapeutic He did not read our last [employer] message and hasn't logged on in a month so tried to call. Plan: Called and spoke to patient/caregiver Advised patient to continue current weekly dose Next home INR check scheduled on 03/23/2022 Ruthie Cuevas RPh Clinical Pharmacist, Pharmacy Anticoagulation Clinic Pharmacy Anticoagulation Clinic Pager: [phone] . documented in this encounterMercy Memorial Hospital05-05-2022 Miscellaneous Notes* Telephone Encounter - Jazmyn Garcia RPh - 02/17/2022 1:17 PM EDT Patient due to test INR today. Will continue to monitor for results. 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 message Advised patient to decrease dose for 2 days only then resume weekly regimen Next home INR check scheduled on 02/17/2022 Denisse Hutchinson RPh Clinical Pharmacist, Pharmacy Anticoagulation Clinic Pharmacy Anticoagulation Clinic Pager: [phone] . * Telephone Encounter - Twin Cole RPh - 02/08/2022 4:00 PM EDT Patient due to test INR today. Will continue to monitor for results. Twin Cole RPh documented in this encounterMercy Memorial Hospital04-12-2022 Miscellaneous Notes* Telephone Encounter - Twin Cole RPh - 01/25/2022 9:15 AM EDT [facility] Anticoagulation Episode Summary Anticoagulation Care Providers Provider Role Specialty Phone number Guanakito Reno MD [facility] [phone] Cal Mitchell is a 76 year old [...] Pharmacy Anticoagulation Clinic Pharmacy Anticoagulation Clinic Pager: [phone] . documented in this encounterMercy Memorial Hospital04-06-2022 History of Present illness Narrative* Guanakito Reno [...] significant issue. Discussed not driving. Needs handicapped placard as well. Reviewed his renal function. With [...] No. Dementia: Had previously been following with [facility]. Last visit 08/2020. Doesn't have anything further scheduled. Doesn't really want to go to [place], but appears last visit was distance. Does not drive. Lives w/ daughter. Stays up late at night and sleep during the day. A. Fib: Chronic anticoagulation. Denies any hematochezia/melena. Daughter does home checks. Follows w/ pharmacy. occ fall with no significant injury. Had been following with [place] [facility], but unsure when he was last seen there. Diabetes. Does not check home blood sugars. Reports compliance w/ medication. Carotid artery stenosis. Follows w/ vascular. Last visit 10/20/20. Recommended follow-up with cardiology and then Dr. Devries in [place]. He did have echo done. Unsure if he followed up with [place] [facility]. Per note, they wanted to establish [...] Abs Lymph 1.00 - 4.00 k/uL 1.65 [place]% % 7.4 Abs [place] <0.87 k/uL 0.53 Eosin% % 8.2 Abs [...] Negative Negative Ketones, Urine Negative Negative Specific [place], Ur 1.005 - 1.030 1.016 Hemoglobin/Blood,Ur Negative [...] 8 hours as needed. blood sugar diagnostic (Georgina GoodmanTOUCH ULTRA TEST) test strip Test blood sugar(s) [...] Laterality Date ARTL CATHJ/CANNULJ MNTR/TRANSFUSION SPX PRQ 7-314 COLONOSCOPY FLX DX W/COLLJ SPEC WHEN PFRMD [...] three months and prn. documented in this encounterMercy Memorial Hospital03-31-2022 Miscellaneous Notes* Telephone Encounter - Jazmyn Garcia RPh - 01/13/2022 2:33 PM EDT Patient due to test INR today. Will continue to monitor for results. Jazmyn Garcia RPh documented in this encounterMercy Memorial Hospital11-11-2020 History of Past illness Narrative* Problem [...] of this encounter (statuses as of 08/15/2023) [facility] Narrative* Problem [...] of this encounter (statuses as of 08/15/2023) [facility] Narrative* Problem [...] of this encounter (statuses as of 08/16/2023) [facility] Narrative* Problem [...] of this encounter (statuses as of 08/23/2023) [facility] Narrative* Problem [...] of this encounter (statuses as of 09/06/2023) [facility] Narrative* Problem [...] of this encounter (statuses as of 09/20/2023) [facility] Narrative* Problem [...] of this encounter (statuses as of 12/04/2023) [facility] Narrative* Problem [...] of this encounter (statuses as of 12/21/2023) [facility] Narrative* Problem [...] of this encounter (statuses as of 12/21/2023) [facility] Narrative* Problem [...] of this encounter (statuses as of 12/22/2023) [facility]* Problem [...] of this encounter (statuses as of 01/15/2024) [facility] Narrative* Problem [...] of this encounter (statuses as of 01/18/2024) [facility] N[facility]* Problem Noted Date Resolved Date Cutaneous skin tags 03/29/2011 05/24/2018 SK (seborrheic keratosis) 01/26/20112019 AK (actinic keratosis) 01/26/2011 0 Skin tags 01/26/2011 03/29/2011 Pain in joint, shoulder region 12/07/2009 0 01/29/2020 Pain in limb 02/15/2008 04/22/2009 OTHER ABNORMAL GLUCOSE 10/12/200510/02/200 6 Dysmetabolic syndrome X 06/24/2005 11/27/19 10 Other symptoms involving cardiovascular system 07/20/2016 Actinic keratosis 10/12/2005 Impacted cerumen 10/12/2005 COPD (chronic obstructive pulmonary disease) 01/29/2020 documented as of this encounter (statuses as of 01/19/2022) [facility]* Problem Noted Date Resolved Date Cutaneous skin tags 03/29/2011 05/24/2018 SK (seborrheic keratosis) 01/26/20112019 AK (actinic keratosis) 01/26/2011 0 Skin tags 01/26/2011 03/29/2011 Pain in joint, shoulder region 12/07/2009 0 01/29/2020 Pain in limb 02/15/2008 04/22/2009 OTHER ABNORMAL GLUCOSE 10/12/200518/200 6 Dysmetabolic syndrome X 06/24/2005 11/27/19 10 Other symptoms involving cardiovascular system 07/20/2016 Actinic keratosis 10/12/2005 Impacted cerumen 10/12/2005 COPD (chronic obstructive pulmonary disease) 01/29/2020 documented as of this encounter (statuses as of 01/25/2022) [facility]* Problem [...] of this encounter (statuses as of 02/11/2022) [facility] Problem [...] of this encounter (statuses as of 03/09/2022) [facility] Problem [...] of this encounter (statuses as of 03/17/2022) [facility] Problem [...] of this encounter (statuses as of 03/18/2022) [facility] Problem [...] of this encounter (statuses as of 04/04/2022) [facility] Problem [...] of this encounter (statuses as of 04/25/2022) [facility] Problem [...] of this encounter (statuses as of 05/13/2022) [facility] Problem [...] of this encounter (statuses as of 05/16/2022) [facility] Problem [...] of this encounter (statuses as of 05/19/2022) [facility] Problem [...] of this encounter (statuses as of 06/14/2022) [facility] Problem [...] of this encounter (statuses as of 07/05/2022) [facility] Problem [...] of this encounter (statuses as of 07/22/2022) [facility] Problem [...] of this encounter (statuses as of 08/01/2022) [facility] Problem [...] of this encounter (statuses as of 08/15/2022) [facility] Problem [...] of this encounter (statuses as of 09/07/2022) [facility] Problem [...] of this encounter (statuses as of 09/15/2022) [facility] Problem [...] of this encounter (statuses as of 09/23/2022) [facility] Problem [...] of this encounter (statuses as of 09/29/2022) [facility] Problem [...] of this encounter (statuses as of 10/16/2022) [facility] Problem [...] of this encounter (statuses as of 10/25/2022) [facility] Problem [...] of this encounter (statuses as of 11/04/2022) [facility] Problem [...] of this encounter (statuses as of 11/08/2022) [facility] Problem [...] of this encounter (statuses as of 11/18/2022) [facility] Problem [...] of this encounter (statuses as of 11/28/2022) [facility] Problem [...] of this encounter (statuses as of 12/19/2022) [facility] Problem [...] of this encounter (statuses as of 01/12/2023) [facility] Problem [...] of this encounter (statuses as of 01/16/2023) [facility] Problem [...] of this encounter (statuses as of 02/07/2023) [facility] Problem [...] of this encounter (statuses as of 02/14/2023) [facility] Problem [...] of this encounter (statuses as of 03/29/2023) [facility] Problem [...] of this encounter (statuses as of 04/20/2023) [facility] Problem [...] of this encounter (statuses as of 04/24/2023) [facility] Problem [...] of this encounter (statuses as of 05/22/2023) [facility] Problem [...] of this encounter (statuses as of 06/28/2023) [facility] Problem [...] of this encounter (statuses as of 07/05/2023) [facility] Problem [...] of this encounter (statuses as of 07/27/2023) [facility] [place] [facility]* Diagnosis Essential hypertension- Primary Unspecified essential [...] 3b CKD (HCC) [facility] [place] [facility]* Diagnosis FCI (current) use of anticoagulants- Primary Long-term (current) use of anticoagulants Paroxysmal atrial fibrillation (HCC) Atrial fibrillation [facility] this encounter [facility] [place] [facility]* Diagnosis 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- Primary Long-term (current) use of anticoagulants Paroxysmal atrial fibrillation (HCC) Atrial fibrillation [facility] [place] [facility]* Diagnosis 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- Primary Long-term (current) use of anticoagulants Paroxysmal atrial fibrillation (HCC) Atrial fibrillation [facility] [place] [facility]* Diagnosis 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- Primary Long-term (current) use of anticoagulants Paroxysmal atrial fibrillation (HCC) Atrial fibrillation [facility] [place] [facility]* Diagnosis Bilateral carotid artery stenosis- Primary Occlusion and stenosis of carotid artery without mention of cerebral infarction Stenosis of left carotid artery Occlusion and stenosis of carotid artery without mention of cerebral infarction documented [facility] this [facility] [place] [facility]* Diagnosis FCI (current) use of anticoagulants- Primary Long-term (current) use of anticoagulants Paroxysmal atrial fibrillation (HCC) Atrial fibrillation [facility] [place] [facility]* Diagnosis Benign prostatic hyperplasia without lower urinary tract symptoms Mixed dementia (HCC) Essential hypertension with goal blood pressure less than 140/90 Lung nodule Solitary pulmonary nodule Paroxysmal atrial fibrillation (HCC) Atrial fibrillation [facility]* Diagnosis Paroxysmal atrial fibrillation (HCC) [facility]rial [facility] Obesity, Class II, BMI 35-39.9- Primary Obesity, unspecified Paroxysmal atrial fibrillation (HCC) Atrial fibrillation Nonrheumatic aortic valve stenosis Aortic valve disorders Aortic valve disorder Aortic valve disorders [facility] Diagnosis FCI (current) use of anticoagulants- Primary Long-term (current) use of anticoagulants Paroxysmal atrial fibrillation (HCC) [facility] Essential hypertension with goal blood pressure less than 140/90 [facility] 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- Primary Long-term (current) use of anticoagulants Paroxysmal atrial fibrillation (HCC) [facility] Diagnosis Bilateral carotid artery stenosis- Primary Occlusion and stenosis of carotid artery without mention of cerebral infarction [facility] Diagnosis 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- Primary Long-term (current) use of anticoagulants Paroxysmal atrial fibrillation (HCC) Atrial [facility] Diagnosis Essential hypertension with goal blood pressure less than 140/90 [facility] Diagnosis Essential hypertension with goal [...] for COVID-19 vaccine [facility] Diagnosis Syncope, unspecified syncope type- Primary Aortic valve disorder Aortic valve disorders [facility] Diagnosis Paroxysmal atrial fibrillation (HCC) Atrial fibrillation Essential hypertension with goal blood pressure less than 140/90 Benign prostatic hyperplasia without lower urinary tract symptoms Mixed dementia (HCC) Lung nodule Solitary pulmonary nodule Type 2 diabetes mellitus with stage 3 chronic kidney disease, without long-term current use of insulin (HCC) [facility] Diagnosis Essential hypertension with goal blood pressure less than 140/90 [facility] Diagnosis 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- Primary Long-term (current) use of anticoagulants Paroxysmal atrial fibrillation (HCC) Atrial fibrillation [facility] [place] [facility] Diagnosis Onychomycosis- Primary Dermatophytosis of nail [...] kidney disease (HCC) [facility] [place] [facility]* Diagnosis Renal insufficiency- Primary Unspecified disorder of kidney and ureter [facility]* Diagnosis FCI (current) use of anticoagulants- Primary Long-term (current) use of anticoagulants Paroxysmal atrial fibrillation (HCC) Atrial fibrillation [facility] [place] [facility] Diagnosis 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- Primary Long-term (current) use of anticoagulants Paroxysmal atrial fibrillation (HCC) Atrial fibrillation [facility]* Diagnosis Abrasion of arm, left, initial encounter- Primary Chronic insomnia Insomnia, unspecified [facility]* Diagnosis Essential hypertension with goal blood pressure less than 140/90 Paroxysmal atrial fibrillation (HCC) [facility] Lung nodule Solitary pulmonary nodule [facility] Diagnosis FCI (current) use of anticoagulants- Primary Long-term (current) use of anticoagulants Paroxysmal atrial fibrillation (HCC) Atrial fibrillation [facility] [place] [facility]* Diagnosis Syncope, unspecified syncope type- Primary Aortic valve disorder Aortic valve disorders Paroxysmal atrial fibrillation (HCC) Atrial fibrillation Ectatic thoracic aorta (HCC) 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, without long-term current use of insulin (HCC) [facility] [place] [facility]* Diagnosis Essential hypertension- Primary Unspecified essential [...] or 3b CKD (HCC) Mixed dementia (HCC) FCI (current) use of anticoagulants Long-term (current) use of anticoagulants Obesity, Class II, BMI 35-39.9 Obesity, unspecified Renal insufficiency Unspecified disorder of kidney and ureter Anemia, unspecified type [facility] [place] [facility] Diagnosis FCI (current) use of anticoagulants- Primary Long-term (current) use of anticoagulants Paroxysmal atrial fibrillation (HCC) Atrial fibrillation [facility] [place] [facility]* Diagnosis CKD (chronic kidney disease) stage 4, 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/min (HCC)- Primary Chronic kidney disease, Stage IV (severe) Anemia, unspecified type [facility] [place] [facility]* Diagnosis Essential hypertension- Primary Unspecified essential [...] Stage IV (severe) [facility] [place] [facility]* Diagnosis 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- Primary Long-term (current) use of anticoagulants Paroxysmal atrial fibrillation (HCC) Atrial fibrillation [facility] [place] [facility]* Diagnosis Renal insufficiency Unspecified disorder of kidney and ureter [facility] [place] [facility]* Diagnosis Essential hypertension- Primary Unspecified essential hypertension Hypertensive kidney disease with stage 3 chronic kidney disease, unspecified whether stage 3a or 3b CKD (HCC) Anemia, unspecified type [facility] [place] [facility]* Diagnosis FCI (current) use of anticoagulants- Primary Long-term (current) use of anticoagulants Paroxysmal atrial fibrillation (HCC) Atrial fibrillation [facility] [place] [facility]* Diagnosis Blood pressure check- Primary Screening for hypertension Leg swelling Swelling of limb [facility] [place] [facility]* Diagnosis Aortic valve stenosis, etiology of cardiac valve disease unspecified- Primary Hypertensive kidney disease with stage 3b chronic kidney disease (HCC) Paroxysmal atrial fibrillation (HCC) Atrial fibrillation Benign prostatic hyperplasia without lower urinary tract symptoms Anemia, unspecified type [facility] [place] [facility]* Diagnosis FCI (current) use of anticoagulants- Primary Long-term (current) use of anticoagulants Paroxysmal atrial fibrillation (HCC) Atrial fibrillation [facility] [place] [facility]* Diagnosis Screen for colon cancer- Primary Special screening for malignant neoplasms, colon [facility] [place] [facility]* Diagnosis FCI (current) use of anticoagulants- Primary Long-term (current) use of anticoagulants Paroxysmal atrial fibrillation (HCC) Atrial fibrillation [facility] [place] [facility]* Diagnosis Severe aortic stenosis [I35.0]- Primary Aortic valve disorders Valvular heart disease Endocarditis, valve unspecified, unspecified cause [facility] [place] [facility]* Diagnosis Nonrheumatic aortic valve stenosis- Primary [...] unspecified, unspecified cause [facility] [place] [facility]* Diagnosis Nonrheumatic aortic valve stenosis Aortic valve disorders Valvular heart disease Endocarditis, valve unspecified, unspecified cause [facility] [place] [facility]* Diagnosis Essential hypertension- Primary Unspecified essential [...] disease, Stage IV (severe) Mixed dementia (HCC) 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 Long-term (current) use of anticoagulants Need for vaccination Need for prophylactic vaccination and inoculation against unspecified single disease Valvular heart disease Endocarditis, valve unspecified, unspecified cause documented in this encounter [facility]* Diagnosis Essential hypertension- Primary Unspecified essential hypertension Valvular heart disease Endocarditis, valve unspecified, unspecified cause documented in this encounter [facility] note* Diagnosis Paroxysmal atrial fibrillation (HCC)- Primary Atrial fibrillation Aortic valve stenosis, etiology of cardiac valve disease unspecified Valvular heart disease Endocarditis, valve unspecified, unspecified cause documented in this encounter [facility] note* Diagnosis Nonrheumatic aortic valve stenosis- Primary Aortic valve disorders Paroxysmal atrial fibrillation (HCC) Atrial fibrillation Valvular heart disease Endocarditis, valve unspecified, unspecified cause documented in this encounter [facility] note* Diagnosis Nonrheumatic aortic valve stenosis Aortic valve disorders Encounter for preprocedural cardiovascular examination Pre-operative cardiovascular examination documented in this encounter [facility] note* Diagnosis FCI (current) use of anticoagulants- Primary Long-term (current) use of anticoagulants Paroxysmal atrial fibrillation (HCC) Atrial fibrillation documented in this encounter [facility] note* Diagnosis Bilateral carotid artery stenosis- Primary Occlusion and stenosis of carotid artery without mention of cerebral infarction History of carotid endarterectomy Other postprocedural status documented in this encounter [facility] note* Diagnosis FCI (current) use of anticoagulants- Primary Long-term (current) use of anticoagulants Paroxysmal atrial fibrillation (HCC) Atrial fibrillation documented in this encounter [facility] note* Diagnosis Hyperlipidemia, mixed- Primary Mixed hyperlipidemia [...] (HCC) Chronic kidney disease, Stage IV (severe) FCI (current) use of anticoagulants Long-term (current) use of anticoagulants Obesity, Class II, BMI 35-39.9 Obesity, unspecified Viral conjunctivitis Unspecified diseases of conjunctiva due to viruses Seasonal allergic rhinitis, unspecified trigger Bilateral impacted cerumen Impacted cerumen documented in this encounter [facility] note* Diagnosis FCI (current) use of anticoagulants- Primary Long-term (current) use of anticoagulants Paroxysmal atrial fibrillation (HCC) Atrial fibrillation documented in this encounter [facility] note* Diagnosis Paroxysmal atrial fibrillation (HCC) Atrial fibrillation documented in this encounter [facility] for referral (narrative)* Outpatient Procedure (Routine) - Pending Review Specialty Diagnoses / Procedures Referred By Juveac t Referred To Contact [facility] Diagnoses Bilateral carotid artery stenosis Procedures US CAROTID ARTERIES GRAY VAS LAB DUPLEX SCAN EXTRACRANIAL ART COMPL BI STUDY Alondra Prescott DO [address] [place] [address] [facility] [address] [address] Referral ID Status Reason Start Date Expiration Date Visits Requested Visits Authorized [id number] Pending Review Auto-Generat ed Referral 03/18/2022 03/16/2023 1 1 [facility] for referral (narrative)* Outpatient Procedure (Routine) - Authorized Specialty Diagnoses / Procedures Referred By Contac t Referred To Contact [facility] Diagnoses Nonrheumatic aortic valve stenosis Procedures ECHO ECHO TTHRC R-T 2D W/WOM-MODE COMPL SPEC&COLR Pam Velazco MD [address] [place] [address] [facility] [address] [address] Referral ID Status Reason Start Date Expiration Date Visits Requested Visits Authorized [id number] Authorized Auto-Generat ed Referral 08/22/2022 08/15/2023 1 1 [facility] for referral (narrative)* Outpatient Procedure (Routine) - Pending Review Specialty Diagnoses / Procedures Referred By Contac t Referred To Contact [facility] Diagnoses Bilateral carotid artery stenosis Procedures US CAROTID ARTERIES GRAY VAS LAB DUPLEX SCAN EXTRACRANIAL ART COMPL BI STUDY Alondra Prescott DO [address] [place] [address] [facility] [place] [address] [place] [address] Referral ID Status Reason Start Date Expiration Date Visits Requested Visits Authorized [id number] Pending Review Auto-Generat ed Referral 2 10/04/2023 1 1 [facility] for referral (narrative)* Outpatient Procedure (Routine) - Authorized Specialty Diagnoses / Procedures Referred By Contac t Referred To Contact [facility] Diagnoses Syncope, unspecified syncope type Aortic valve disorder Procedures ECHO ECHO TTHRC R-T 2D W/WOM-MODE COMPL SPEC&COLR Pam Velazco MD [address] [place] [address] Fax: [facility] [place] [address] [place] [address] Referral ID Status Reason Start Date Expiration Date Visits Requested Visits Authorized [id number] Authorized Auto-Generat ed Referral 02/20/2023 02/13/2024 1 1 [facility] for referral (narrative)* Outpatient Procedure (Routine) - Pending Review Specialty Diagnoses / Procedures Referred By Contac t Referred To Contact [facility] Diagnoses Syncope, unspecified syncope type Aortic valve disorder Procedures ECHO ECHO TTHRC R-T 2D W/WOM-MODE COMPL SPEC&COLR Pam Velazco MD [address], [address] [place] [address] Fax: [facility] [place] [address] [place] [address] Referral ID Status Reason Start Date Expiration Date Visits Requested Visits Authorized [id number] Pending Review Auto-Generat ed Referral 04/08/2024 03/25/2025 1 1 * Outpatient Procedure (Routine) - Pending Review Specialty Diagnoses / Procedures Referred By Contac t Ref[facility] Diagnoses Syncope, unspecified syncope type Aortic valve disorder Paroxysmal atrial fibrillation (HCC) Procedures ECG COMPLETE ECG ROUTINE ECG W/LEAST 12 LDS W/I&R Pam Reddy MD [address], [address] [place] [address] [facility] [place] [phone] Referral ID Status Reason Start Date Expiration Date Visits Requested Visits Authorized [id number] Pending Review Auto-Generat ed Referral 03/21/2024 03/21/2025 1 1 [facility] for referral (narrative)* Diagnostic Procedure Only (Routine) - Authorized Specialty Diagnoses / Procedures Referred By Contac t Referred To Contact [facility] Diagnoses Renal insufficiency Procedures US KIDNEY/BLADDER US RETROPERITONEAL REAL TIME W/IMAGE COMPLETE Guanakito Reno MD [address] [place], [place] [id number] [id number] Referral ID Status Reason Start Date Expiration Date Visits Requested Visits Authorized [id number] Authorized Auto-Generat ed Referral 03/26/2024 04/25/2025 1 1 * Outpatient Procedure (Routine) - Pending Review Specialty Diagnoses / Procedures Referred By Contac t Referred To Contact [facility] Diagnoses History of carotid endarterectomy Procedures US CAROTID ARTERIES GRAY VAS LAB DUPLEX SCAN EXTRACRANIAL ART COMPL BI STUDY Guanakito Reno MD [address] [place] [address] [facility] [place] [phone] Referral ID Status Reason Start Date Expiration Date Visits Requested Visits Authorized [id number] Pending Review Auto-Generat ed Referral 03/26/2024 03/26/2025 1 1 [facility] for referral (narrative)* Diagnostic Procedure Only (Routine) - Closed Specialty Diagnoses / Procedures Referred By Anival aden Referred To Contact [facility] Diagnoses Renal insufficiency Procedures US KIDNEY/BLADDER US RETROPERITONEAL REAL TIME W/IMAGE COMPLETE Guanakito Reno MD [address] [place] [address] [place] [address] Referral ID Status Reason Start Date Expiration Date V isits Requested Visits Authorized [id number] Closed Auto-Generate d Referral 03/26/2024 04/25/2025 1 1 [facility] for referral (narrative)* Diagnostic Procedure Only (Routine) - New Request Specialty Diagnoses / Procedures Referred By Anival aden Referred To Contact [facility] Diagnoses Bilateral carotid artery stenosis History of carotid endarterectomy Procedures US CAROTID BILATERAL Laura Iraheta MD [address] [facility] [address] [place] [address] [place] [address] Referral ID Status Reason Start Date Expiration Date Visits Requested Visits Authorized [id number] New Request Auto-Generat ed Referral 09/05/2025 1 1 [facility] Summary Purpose Family History No Family [...] Diagnoses Mixed dementia (HCC) Guanakito Reno MD [address] [place] [address] Referral ID Status Reason Start Date Expiration Date Visits Re quested Visits Authorized [id number] Closed 1 1 Referral ID Status Reason Start Date Expiration Date Visits Re quested Visits Authorized [id number] Closed 1 1 Specialty Diagnoses / Procedures Referred By Contac t Referred To Contact Podiatry Diagnoses Onychomycosis Procedures CONSULT TO PODIATRY OFFICE/OUTPATIENT [facility] 60-74 MINUTES Guanakito Reno MD [address] [place] [address] Referral ID Status Reason Start Date Expiration Date Visits Requested Visits Authorized [id number] Pending Review PCP Requested Referral 3 08/13/2024 1 1 Specialty Diagnoses / Procedures Referred By Contac t Referred To Contact Nephrology Diagnoses CKD (chronic kidney disease) stage 4, 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/min ([facility]) Anemia, unspecified type Procedures CONSULT TO NEPHROLOGY OFFICE/OUTPATIENT [facility] 60 MINUTES Guanakito Reno MD [address] [place] [address] Referral ID Status Reason Start Date Expiration Date Visits Requested Visits Authorized [id number] Authorized PCP Requested Referral 04/05/2024 04/05/2025 1 1 Specialty Diagnoses / Procedures Referred By Contac t Referred To Contact Vascular Surgery Diagnoses Stenosis of left carotid artery Procedures CONSULT TO VASCULAR SURGERY OFFICE/OUTPATIENT [facility] 60 MINUTES Josselyn Mayer, TEXTILE CONSERVATOR.ATHLETIC EVENTS SCORER [address] [place] [address] Laura Iraheta MD [address] [place] [address] Referral ID Status Reason Start Date Expiration Date Visits Requested Visits Authorized [id number] Authorized PCP Requested Referral 07/10/2024 07/10/2025 1 1 Specialty Diagnoses / Procedures Referred By Contac t Referred To Contact Nephrology Diagnoses Chronic kidney disease, unspecified CKD stage Anemia in chronic kidney disease, unspecified CKD stage Procedures CONSULT TO NEPHROLOGY Josselyn Mayer, TEXTILE CONSERVATOR.ATHLETIC EVENTS SCORER [address] [place] [address] Eladio Remy MD [address] [place] [address] Referral ID Status Reason Start Date Expiration Date Visits Requested Visits Authorized [id number] Ref Not Required PCP Requested Referral 07/10/2024 07/10/2025 1 1 Specialty Diagnoses / Procedures Referred By Contac t Referred To Contact Gerontology Diagnoses Dementia, unspecified dementia severity, unspecified dementia type, unspecified whether behavioral, psychotic, or mood disturbance or anxiety (HCC) Procedures CONSULT TO GERIATRICS OFFICE/OUTPATIENT [facility] 60 MINUTES Josselyn Mayer, TEXTILE CONSERVATOR.ATHLETIC EVENTS SCORER [address] [place] [address] Referral ID Status Reason Start Date Expiration Date Visits Requested Visits Authorized [id number] Authorized PCP Requested Referral 07/10/2024 07/10/2025 1 1 Specialty Diagnoses / Procedures Referred By Contac t Referred To Contact CT IMAGING Diagnoses Nonrheumatic aortic valve stenosis Encounter for preprocedural cardiovascular examination Procedures CTA CHEST (GATED) WO/W IVCON CT ANGIOGRAPHY CHEST W/CONTRAST/NONCONTRAST Josselyn Mayer, TEXTILE CONSERVATOR.ATHLETIC EVENTS SCORER [address] [place] [address] Fax: [place] [address] Referral ID Status Reason Start Date Expiration Date Visits Requested Visits Authorized [id number] Authorized Auto-Generat ed Referral 07/10/2024 08/09/2025 1 1 Specialty Diagnoses / Procedures Referred By Contac t Referred To Contact CT IMAGING Diagnoses Nonrheumatic aortic valve stenosis Encounter for preprocedural cardiovascular examination Procedures CTA ABD/PEL W IVCON CT ANGIO ABD&PLVIS CNTRST MTRL W/WO CNTRST IMGES Josselyn Mayer, TEXTILE CONSERVATOR.ATHLETIC EVENTS SCORER [address] [place] [address] Fax: [place] [address] Referral ID Status Reason Start Date Expiration Date Visits Requested Visits Authorized [id number] Authorized Auto-Generat ed Referral 07/10/2024 08/09/2025 1 1 Referral ID Status Reason Start Date Expiration Date V isits Requested Visits Authorized [id number] Closed Auto-Generate d Referral 07/10/2024 08/09/2025 1 1 Referral ID Status Reason Start Date Expiration Date V isits Requested Visits Authorized [id number] Closed Auto-Generate d Referral 07/10/2024 08/09/2025 1 [...] section and content) DATE CREATED AUTHOR 04/06/2018 [facility] DATE CREATED AUTHOR AUTHOR'S ORGANIZ ATION 03/12/2025 [facility] DATE CREATED AUTHOR AUTHOR'S ORGANIZ ATION 05/07/2025 [facility] DATE CREATED AUTHOR AUTHOR'S ORGANIZ ATION 05/16/2025 [facility] Source Comments (unrecognize d section and content) In the event this informatio n is protected by the Federal Confidentiality of Alcohol and Drug Abuse Patient Records regulations: The Federal rules restrict any use of the information to criminally investigate or prosecute any alcohol or drug abuse patient.[facility] the event this information is protected by the Federal Confidentiality of Alcohol and Drug Abuse Patient Records regulations: The Federal rules restrict any use of the information to criminally investigate or prosecute any alcohol or drug abuse patient.[facility] the event this information is protected by the Federal Confidentiality of Alcohol and Drug Abuse Patient Records regulations: The Federal rules restrict any use of the information to criminally investigate or prosecute any alcohol or drug abuse patient.[facility] the event this information is protected by the Federal Confidentiality of Alcohol and Drug Abuse Patient Records regulations: The Federal rules restrict any use of the information to criminally investigate or prosecute any alcohol or drug abuse patient.[facility] the event this information is protected by the Federal Confidentiality of Alcohol and Drug Abuse Patient Records regulations: The Federal rules restrict any use of the information to criminally investigate or prosecute any alcohol or drug abuse patient.[facility] the event this information is protected by the Federal Confidentiality of Alcohol and Drug Abuse Patient Records regulations: The Federal rules restrict any use of the information to criminally investigate or prosecute any alcohol or drug abuse patient.[facility] the event this information is protected by the Federal Confidentiality of Alcohol and Drug Abuse Patient Records regulations: The Federal rules restrict any use of the information to criminally investigate or prosecute any alcohol or drug abuse patient.[facility] HospitalIn the event this information is protected by the Federal Confidentiality of Alcohol and Drug Abuse Patient Records regulations: The Federal rules restrict any use of the information to criminally investigate or prosecute any alcohol or drug abuse patient.[facility] HospitalIn the event this information is protected by the Federal Confidentiality of Alcohol and Drug Abuse Patient Records regulations: The Federal rules restrict any use of the information to criminally investigate or prosecute any alcohol or drug abuse patient.[facility] HospitalIn the event this information is protected by the Federal Confidentiality of Alcohol and Drug Abuse Patient Records regulations: The Federal rules restrict any use of the information to criminally investigate or prosecute any alcohol or drug abuse patient.[facility] HospitalIn the event this information is protected by the Federal Confidentiality of Alcohol and Drug Abuse Patient Records regulations: The Federal rules restrict any use of the information to criminally investigate or prosecute any alcohol or drug abuse patient.[facility] HospitalIn the event this information is protected by the Federal Confidentiality of Alcohol and Drug Abuse Patient Records regulations: The Federal rules restrict any use of the information to criminally investigate or prosecute any alcohol or drug abuse patient.[facility] HospitalIn the event this information is protected by the Federal Confidentiality of Alcohol and Drug Abuse Patient Records regulations: The Federal rules restrict any use of the information to criminally investigate or prosecute any alcohol or drug abuse patient.[facility] HospitalIn the event this information is protected by the Federal Confidentiality of Alcohol and Drug Abuse Patient Records regulations: The Federal rules restrict any use of the information to criminally investigate or prosecute any alcohol or drug abuse patient.[facility] HospitalIn the event this information is protected by the Federal Confidentiality of Alcohol and Drug Abuse Patient Records regulations: The Federal rules restrict any use of the information to criminally investigate or prosecute any alcohol or drug abuse patient.[facility] HospitalIn the event this information is protected by the Federal Confidentiality of Alcohol and Drug Abuse Patient Records regulations: The Federal rules restrict any use of the information to criminally investigate or prosecute any alcohol or drug abuse patient.[facility] HospitalIn the event this information is protected by the Federal Confidentiality of Alcohol and Drug Abuse Patient Records regulations: The Federal rules restrict any use of the information to criminally investigate or prosecute any alcohol or drug abuse patient.[facility] HospitalIn the event this information is protected by the Federal Confidentiality of Alcohol and Drug Abuse Patient Records regulations: The Federal rules restrict any use of the information to criminally investigate or prosecute any alcohol or drug abuse patient.[facility] HospitalIn the event this information is protected by the Federal Confidentiality of Alcohol and Drug Abuse Patient Records regulations: The Federal rules restrict any use of the information to criminally investigate or prosecute any alcohol or drug abuse patient.[facility] HospitalIn the event this information is protected by the Federal Confidentiality of Alcohol and Drug Abuse Patient Records regulations: The Federal rules restrict any use of the information to criminally investigate or prosecute any alcohol or drug abuse patient.[facility] HospitalIn the event this information is protected by the Federal Confidentiality of Alcohol and Drug Abuse Patient Records regulations: The Federal rules restrict any use of the information to criminally investigate or prosecute any alcohol or drug abuse patient.[facility] HospitalIn the event this information is protected by the Federal Confidentiality of Alcohol and Drug Abuse Patient Records regulations: The Federal rules restrict any use of the information to criminally investigate or prosecute any alcohol or drug abuse patient.[facility] HospitalIn the event this information is protected by the Federal Confidentiality of Alcohol and Drug Abuse Patient Records regulations: The Federal rules restrict any use of the information to criminally investigate or prosecute any alcohol or drug abuse patient.[facility] HospitalIn the event this information is protected by the Federal Confidentiality of Alcohol and Drug Abuse Patient Records regulations: The Federal rules restrict any use of the information to criminally investigate or prosecute any alcohol or drug abuse patient.[facility] HospitalIn the event this information is protected by the Federal Confidentiality of Alcohol and Drug Abuse Patient Records regulations: The Federal rules restrict any use of the information to criminally investigate or prosecute any alcohol or drug abuse patient.[facility] HospitalIn the event this information is protected by the Federal Confidentiality of Alcohol and Drug Abuse Patient Records regulations: The Federal rules restrict any use of the information to criminally investigate or prosecute any alcohol or drug abuse patient.[facility] HospitalIn the event this information is protected by the Federal Confidentiality of Alcohol and Drug Abuse Patient Records regulations: The Federal rules restrict any use of the information to criminally investigate or prosecute any alcohol or drug abuse patient.[facility] HospitalIn the event this information is protected by the Federal Confidentiality of Alcohol and Drug Abuse Patient Records regulations: The Federal rules restrict any use of the information to criminally investigate or prosecute any alcohol or drug abuse patient.[facility] HospitalIn the event this information is protected by the Federal Confidentiality of Alcohol and Drug Abuse Patient Records regulations: The Federal rules restrict any use of the information to criminally investigate or prosecute any alcohol or drug abuse patient.[facility] HospitalIn the event this information is protected by the Federal Confidentiality of Alcohol and Drug Abuse Patient Records regulations: The Federal rules restrict any use of the information to criminally investigate or prosecute any alcohol or drug abuse patient.[facility] HospitalIn the event this information is protected by the Federal Confidentiality of Alcohol and Drug Abuse Patient Records regulations: The Federal rules restrict any use of the information to criminally investigate or prosecute any alcohol or drug abuse patient.[facility] HospitalIn the event this information is protected by the Federal Confidentiality of Alcohol and Drug Abuse Patient Records regulations: The Federal rules restrict any use of the information to criminally investigate or prosecute any alcohol or drug abuse patient.[facility] HospitalIn the event this information is protected by the Federal Confidentiality of Alcohol and Drug Abuse Patient Records regulations: The Federal rules restrict any use of the information to criminally investigate or prosecute any alcohol or drug abuse patient.[facility] HospitalIn the event this information is protected by the Federal Confidentiality of Alcohol and Drug Abuse Patient Records regulations: The Federal rules restrict any use of the information to criminally investigate or prosecute any alcohol or drug abuse patient.[facility] HospitalIn the event this information is protected by the Federal Confidentiality of Alcohol and Drug Abuse Patient Records regulations: The Federal rules restrict any use of the information to criminally investigate or prosecute any alcohol or drug abuse patient.[facility] HospitalIn the event this information is protected by the Federal Confidentiality of Alcohol and Drug Abuse Patient Records regulations: The Federal rules restrict any use of the information to criminally investigate or prosecute any alcohol or drug abuse patient.[facility] HospitalIn the event this information is protected by the Federal Confidentiality of Alcohol and Drug Abuse Patient Records regulations: The Federal rules restrict any use of the information to criminally investigate or prosecute any alcohol or drug abuse patient.[facility] HospitalIn the event this information is protected by the Federal Confidentiality of Alcohol and Drug Abuse Patient Records regulations: The Federal rules restrict any use of the information to criminally investigate or prosecute any alcohol or drug abuse patient.[facility] HospitalIn the event this information is protected by the Federal Confidentiality of Alcohol and Drug Abuse Patient Records regulations: The Federal rules restrict any use of the information to criminally investigate or prosecute any alcohol or drug abuse patient.[facility] HospitalIn the event this information is protected by the Federal Confidentiality of Alcohol and Drug Abuse Patient Records regulations: The Federal rules restrict any use of the information to criminally investigate or prosecute any alcohol or drug abuse patient.[facility] HospitalIn the event this information is protected by the Federal Confidentiality of Alcohol and Drug Abuse Patient Records regulations: The Federal rules restrict any use of the information to criminally investigate or prosecute any alcohol or drug abuse patient.[facility] HospitalIn the event this information is protected by the Federal Confidentiality of Alcohol and Drug Abuse Patient Records regulations: The Federal rules restrict any use of the information to criminally investigate or prosecute any alcohol or drug abuse patient.[facility] HospitalIn the event this information is protected by the Federal Confidentiality of Alcohol and Drug Abuse Patient Records regulations: The Federal rules restrict any use of the information to criminally investigate or prosecute any alcohol or drug abuse patient.[facility] HospitalIn the event this information is protected by the Federal Confidentiality of Alcohol and Drug Abuse Patient Records regulations: The Federal rules restrict any use of the information to criminally investigate or prosecute any alcohol or drug abuse patient.[facility] HospitalIn the event this information is protected by the Federal Confidentiality of Alcohol and Drug Abuse Patient Records regulations: The Federal rules restrict any use of the information to criminally investigate or prosecute any alcohol or drug abuse patient.[facility] HospitalIn the event this information is protected by the Federal Confidentiality of Alcohol and Drug Abuse Patient Records regulations: The Federal rules restrict any use of the information to criminally investigate or prosecute any alcohol or drug abuse patient.[facility] HospitalIn the event this information is protected by the Federal Confidentiality of Alcohol and Drug Abuse Patient Records regulations: The Federal rules restrict any use of the information to criminally investigate or prosecute any alcohol or drug abuse patient.[facility] HospitalIn the event this information is protected by the Federal Confidentiality of Alcohol and Drug Abuse Patient Records regulations: The Federal rules restrict any use of the information to criminally investigate or prosecute any alcohol or drug abuse patient.[facility] HospitalIn the event this information is protected by the Federal Confidentiality of Alcohol and Drug Abuse Patient Records regulations: The Federal rules restrict any use of the information to criminally investigate or prosecute any alcohol or drug abuse patient.[facility] HospitalIn the event this information is protected by the Federal Confidentiality of Alcohol and Drug Abuse Patient Records regulations: The Federal rules restrict any use of the information to criminally investigate or prosecute any alcohol or drug abuse patient.[facility] HospitalIn the event this information is protected by the Federal Confidentiality of Alcohol and Drug Abuse Patient Records regulations: The Federal rules restrict any use of the information to criminally investigate or prosecute any alcohol or drug abuse patient.[facility] HospitalIn the event this information is protected by the Federal Confidentiality of Alcohol and Drug Abuse Patient Records regulations: The Federal rules restrict any use of the information to criminally investigate or prosecute any alcohol or drug abuse patient.[facility] HospitalIn the event this information is protected by the Federal Confidentiality of Alcohol and Drug Abuse Patient Records regulations: The Federal rules restrict any use of the information to criminally investigate or prosecute any alcohol or drug abuse patient.[facility] HospitalIn the event this information is protected by the Federal Confidentiality of Alcohol and Drug Abuse Patient Records regulations: The Federal rules restrict any use of the information to criminally investigate or prosecute any alcohol or drug abuse patient.[facility] HospitalIn the event this information is protected by the Federal Confidentiality of Alcohol and Drug Abuse Patient Records regulations: The Federal rules restrict any use of the information to criminally investigate or prosecute any alcohol or drug abuse patient.[facility] HospitalIn the event this information is protected by the Federal Confidentiality of Alcohol and Drug Abuse Patient Records regulations: The Federal rules restrict any use of the information to criminally investigate or prosecute any alcohol or drug abuse patient.[facility] HospitalIn the event this information is protected by the Federal Confidentiality of Alcohol and Drug Abuse Patient Records regulations: The Federal rules restrict any use of the information to criminally investigate or prosecute any alcohol or drug abuse patient.[facility] HospitalIn the event this information is protected by the Federal Confidentiality of Alcohol and Drug Abuse Patient Records regulations: The Federal rules restrict any use of the information to criminally investigate or prosecute any alcohol or drug abuse patient.[facility] HospitalIn the event this information is protected by the Federal Confidentiality of Alcohol and Drug Abuse Patient Records regulations: The Federal rules restrict any use of the information to criminally investigate or prosecute any alcohol or drug abuse patient.[facility] HospitalIn the event this information is protected by the Federal Confidentiality of Alcohol and Drug Abuse Patient Records regulations: The Federal rules restrict any use of the information to criminally investigate or prosecute any alcohol or drug abuse patient.[facility] HospitalIn the event this information is protected by the Federal Confidentiality of Alcohol and Drug Abuse Patient Records regulations: The Federal rules restrict any use of the information to criminally investigate or prosecute any alcohol or drug abuse patient.[facility] HospitalIn the event this information is protected by the Federal Confidentiality of Alcohol and Drug Abuse Patient Records regulations: The Federal rules restrict any use of the information to criminally investigate or prosecute any alcohol or drug abuse patient.[facility] HospitalIn the event this information is protected by the Federal Confidentiality of Alcohol and Drug Abuse Patient Records regulations: The Federal rules restrict any use of the information to criminally investigate or prosecute any alcohol or drug abuse patient.[facility] HospitalIn the event this information is protected by the Federal Confidentiality of Alcohol and Drug Abuse Patient Records regulations: The Federal rules restrict any use of the information to criminally investigate or prosecute any alcohol or drug abuse patient.[facility] HospitalIn the event this information is protected by the Federal Confidentiality of Alcohol and Drug Abuse Patient Records regulations: The Federal rules restrict any use of the information to criminally investigate or prosecute any alcohol or drug abuse patient.[facility] HospitalIn the event this information is protected by the Federal Confidentiality of Alcohol and Drug Abuse Patient Records regulations: The Federal rules restrict any use of the information to criminally investigate or prosecute any alcohol or drug abuse patient.[facility] HospitalIn the event this information is protected by the Federal Confidentiality of Alcohol and Drug Abuse Patient Records regulations: The Federal rules restrict any use of the information to criminally investigate or prosecute any alcohol or drug abuse patient.[facility] HospitalIn the event this information is protected by the Federal Confidentiality of Alcohol and Drug Abuse Patient Records regulations: The Federal rules restrict any use of the information to criminally investigate or prosecute any alcohol or drug abuse patient.[facility] HospitalIn the event this information is protected by the Federal Confidentiality of Alcohol and Drug Abuse Patient Records regulations: The Federal rules restrict any use of the information to criminally investigate or prosecute any alcohol or drug abuse patient.[facility] HospitalIn the event this information is protected by the Federal Confidentiality of Alcohol and Drug Abuse Patient Records regulations: The Federal rules restrict any use of the information to criminally investigate or prosecute any alcohol or drug abuse patient.[facility] HospitalIn the event this information is protected by the Federal Confidentiality of Alcohol and Drug Abuse Patient Records regulations: The Federal rules restrict any use of the information to criminally investigate or prosecute any alcohol or drug abuse patient.[facility] HospitalIn the event this information is protected by the Federal Confidentiality of Alcohol and Drug Abuse Patient Records regulations: The Federal rules restrict any use of the information to criminally investigate or prosecute any alcohol or drug abuse patient.[facility] HospitalIn the event this information is protected by the Federal Confidentiality of Alcohol and Drug Abuse Patient Records regulations: The Federal rules restrict any use of the information to criminally investigate or prosecute any alcohol or drug abuse patient.[facility] HospitalIn the event this information is protected by the Federal Confidentiality of Alcohol and Drug Abuse Patient Records regulations: The Federal rules restrict any use of the information to criminally investigate or prosecute any alcohol or drug abuse patient.[facility] HospitalIn the event this information is protected by the Federal Confidentiality of Alcohol and Drug Abuse Patient Records regulations: The Federal rules restrict any use of the information to criminally investigate or prosecute any alcohol or drug abuse patient.[facility] HospitalIn the event this information is protected by the Federal Confidentiality of Alcohol and Drug Abuse Patient Records regulations: The Federal rules restrict any use of the information to criminally investigate or prosecute any alcohol or drug abuse patient.[facility] HospitalIn the event this information is protected by the Federal Confidentiality of Alcohol and Drug Abuse Patient Records regulations: The Federal rules restrict any use of the information to criminally investigate or prosecute any alcohol or drug abuse patient.[facility] HospitalIn the event this information is protected by the Federal Confidentiality of Alcohol and Drug Abuse Patient Records regulations: The Federal rules restrict any use of the information to criminally investigate or prosecute any alcohol or drug abuse patient.[facility] HospitalIn the event this information is protected by the Federal Confidentiality of Alcohol and Drug Abuse Patient Records regulations: The Federal rules restrict any use of the information to criminally investigate or prosecute any alcohol or drug abuse patient.[facility] HospitalIn the event this information is protected by the Federal Confidentiality of Alcohol and Drug Abuse Patient Records regulations: The Federal rules restrict any use of the information to criminally investigate or prosecute any alcohol or drug abuse patient.[facility] HospitalIn the event this information is protected by the Federal Confidentiality of Alcohol and Drug Abuse Patient Records regulations: The Federal rules restrict any use of the information to criminally investigate or prosecute any alcohol or drug abuse patient.[facility] HospitalIn the event this information is protected by the Federal Confidentiality of Alcohol and Drug Abuse Patient Records regulations: The Federal rules restrict any use of the information to criminally investigate or prosecute any alcohol or drug abuse patient.[facility] HospitalIn the event this information is protected by the Federal Confidentiality of Alcohol and Drug Abuse Patient Records regulations: The Federal rules restrict any use of the information to criminally investigate or prosecute any alcohol or drug abuse patient.[facility] HospitalIn the event this information is protected by the Federal Confidentiality of Alcohol and Drug Abuse Patient Records regulations: The Federal rules restrict any use of the information to criminally investigate or prosecute any alcohol or drug abuse patient.[facility] HospitalIn the event this information is protected by the Federal Confidentiality of Alcohol and Drug Abuse Patient Records regulations: The Federal rules restrict any use of the information to criminally investigate or prosecute any alcohol or drug abuse patient.[facility] HospitalIn the event this information is protected by the Federal Confidentiality of Alcohol and Drug Abuse Patient Records regulations: The Federal rules restrict any use of the information to criminally investigate or prosecute any alcohol or drug abuse patient.[facility] HospitalIn the event this information is protected by the Federal Confidentiality of Alcohol and Drug Abuse Patient Records regulations: The Federal rules restrict any use of the information to criminally investigate or prosecute any alcohol or drug abuse patient.[facility] HospitalIn the event this information is protected by the Federal Confidentiality of Alcohol and Drug Abuse Patient Records regulations: The Federal rules restrict any use of the information to criminally investigate or prosecute any alcohol or drug abuse patient.[facility] HospitalIn the event this information is protected by the Federal Confidentiality of Alcohol and Drug Abuse Patient Records regulations: The Federal rules restrict any use of the information to criminally investigate or prosecute any alcohol or drug abuse patient.[facility] HospitalIn the event this information is protected by the Federal Confidentiality of Alcohol and Drug Abuse Patient Records regulations: The Federal rules restrict any use of the information to criminally investigate or prosecute any alcohol or drug abuse patient.[facility] HospitalIn the event this information is protected by the Federal Confidentiality of Alcohol and Drug Abuse Patient Records regulations: The Federal rules restrict any use of the information to criminally investigate or prosecute any alcohol or drug abuse patient.[facility] HospitalIn the event this information is protected by the Federal Confidentiality of Alcohol and Drug Abuse Patient Records regulations: The Federal rules restrict any use of the information to criminally investigate or prosecute any alcohol or drug abuse patient.[facility] HospitalIn the event this information is protected by the Federal Confidentiality of Alcohol and Drug Abuse Patient Records regulations: The Federal rules restrict any use of the information to criminally investigate or prosecute any alcohol or drug abuse patient.[facility] HospitalIn the event this information is protected by the Federal Confidentiality of Alcohol and Drug Abuse Patient Records regulations: The Federal rules restrict any use of the information to criminally investigate or prosecute any alcohol or drug abuse patient.[facility] HospitalIn the event this information is protected by the Federal Confidentiality of Alcohol and Drug Abuse Patient Records regulations: The Federal rules restrict any use of the information to criminally investigate or prosecute any alcohol or drug abuse patient.[facility] HospitalIn the event this information is protected by the Federal Confidentiality of Alcohol and Drug Abuse Patient Records regulations: The Federal rules restrict any use of the information to criminally investigate or prosecute any alcohol or drug abuse patient.[facility] HospitalIn the event this information is protected by the Federal Confidentiality of Alcohol and Drug Abuse Patient Records regulations: The Federal rules restrict any use of the information to criminally investigate or prosecute any alcohol or drug abuse patient.[facility] HospitalIn the event this information is protected by the Federal Confidentiality of Alcohol and Drug Abuse Patient Records regulations: The Federal rules restrict any use of the information to criminally investigate or prosecute any alcohol or drug abuse patient.[facility] HospitalIn the event this information is protected by the Federal Confidentiality of Alcohol and Drug Abuse Patient Records regulations: The Federal rules restrict any use of the information to criminally investigate or prosecute any alcohol or drug abuse patient.[facility] HospitalIn the event this information is protected by the Federal Confidentiality of Alcohol and Drug Abuse Patient Records regulations: The Federal rules restrict any use of the information to criminally investigate or prosecute any alcohol or drug abuse patient.[facility] HospitalIn the event this information is protected by the Federal Confidentiality of Alcohol and Drug Abuse Patient Records regulations: The Federal rules restrict any use of the information to criminally investigate or prosecute any alcohol or drug abuse patient.[facility] HospitalIn the event this information is protected by the Federal Confidentiality of Alcohol and Drug Abuse Patient Records regulations: The Federal rules restrict any use of the information to criminally investigate or prosecute any alcohol or drug abuse patient.[facility] HospitalIn the event this information is protected by the Federal Confidentiality of Alcohol and Drug Abuse Patient Records regulations: The Federal rules restrict any use of the information to criminally investigate or prosecute any alcohol or drug abuse patient.[facility] HospitalIn the event this information is protected by the Federal Confidentiality of Alcohol and Drug Abuse Patient Records regulations: The Federal rules restrict any use of the information to criminally investigate or prosecute any alcohol or drug abuse patient.[facility] HospitalIn the event this information is protected by the Federal Confidentiality of Alcohol and Drug Abuse Patient Records regulations: The Federal rules restrict any use of the information to criminally investigate or prosecute any alcohol or drug abuse patient.[facility] HospitalIn the event this information is protected by the Federal Confidentiality of Alcohol and Drug Abuse Patient Records regulations: The Federal rules restrict any use of the information to criminally investigate or prosecute any alcohol or drug abuse patient.[facility] HospitalIn the event this information is protected by the Federal Confidentiality of Alcohol and Drug Abuse Patient Records regulations: The Federal rules restrict any use of the information to criminally investigate or prosecute any alcohol or drug abuse patient.[facility] HospitalIn the event this information is protected by the Federal Confidentiality of Alcohol and Drug Abuse Patient Records regulations: The Federal rules restrict any use of the information to criminally investigate or prosecute any alcohol or drug abuse patient.[facility] HospitalIn the event this information is protected by the Federal Confidentiality of Alcohol and Drug Abuse Patient Records regulations: The Federal rules restrict any use of the information to criminally investigate or prosecute any alcohol or drug abuse patient.[facility] HospitalIn the event this information is protected by the Federal Confidentiality of Alcohol and Drug Abuse Patient Records regulations: The Federal rules restrict any use of the information to criminally investigate or prosecute any alcohol or drug abuse patient.[facility] HospitalIn the event this information is protected by the Federal Confidentiality of Alcohol and Drug Abuse Patient Records regulations: The Federal rules restrict any use of the information to criminally investigate or prosecute any alcohol or drug abuse patient.[facility] Reason for Visit (unrecogniz ed section and content) Reason Comments Follow Up Specialty Diagnoses / Procedures Referred By Anival aden Referred To Contact Family Practice / FAMILY MEDICINE Diagnoses Follow up/not seen since 02/2020 Procedures 4C EST Self Corrina Lennon, TEXTILE CONSERVATOR.ATHLETIC EVENTS SCORER [address] [place] [address] Referral ID Status Reason Start Date Expiration Date V isits Requested Visits Authorized [id number] Closed Patient Cleared - INN Insurance Found [...] Date Comments Population Health Navigation Outreach 06/14/2022 [facility] care gaps Reason Onset Date Comments Anticoagulation 06/06/2022 Home INR Reason Onset Date Comments Anticoagulation 2022 INR result Reason Onset Date Comments Refill Request 07/22/2022 Reason Onset Date Comments Anticoagulation Telephone Fu 08/01/2022 Gabrielle e INR Result Reason Comments Consult Specialty Diagnoses / Procedures Referred By Contac t Referred To Contact Cardiology / CARD ADMIN [facility] Diagnoses Paroxysmal atrial fibrillation (HCC) Nonrheumatic aortic valve stenosis Procedures CONSULT TO CARDIOLOGY OFFICE/OUTPATIENT [facility] 60-74 MINUTES Corrina Lennon APRN.ATHLETIC EVENTS SCORER [address] [place] [address] Card Admin [facility] [address] [place] [address] Referral ID Status Reason Start Date Expiration Date V isits Requested Visits Authorized [id number] Closed PCP Requested Referral 02/28/2022 10/15/2022 1 1 Reason Onset Date Comments [facility] RN 09/07/2022 Medication Ad herence review at [...] e INR Result Reason Onset Date Comments [facility] RN 2023 Medication Ad herence review per request of payer Reason Onset Date Comments Refill Request 07/04/2023 Reason Comments 6 Month Exam Reason Comments Results Reason Onset Date Comments [facility] RN 09/05/2023 Medication Ad herence review [...] Telephone Fu 03/07/2024 Reason Onset Date Comments [facility] RN 03/08/2024 Medication ad herence and [...] REAL TIME W/IMAGE COMPLETE Guanakito Reno MD [address] [place] [address] [place] [id number] Referral ID Status Reason Start Date Expiration Date V isits Requested Visits Authorized [id number] Closed Auto-Generate d Referral 03/26/2024 04/25/2025 1 1 Reason Comments Follow Up htn- ultrasound on k idneys and labs, family worried about falls Reason Comments 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 - Other Reason Comments Edema Bilateral leg [...] Referred By Anival t Referred To Contact Diagnoses Valvular heart disease Valvular heart disease [I38] Procedures R & L HRT CATH WINJX HRT ART& L VENTR IMG CORONARY CATH 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 [employer] [place] [address] Referral ID Status Reason Start Date Expiration Date Visits Re quested Visits Authorized [id number] 1 1 Reason Onset Date Comments Anticoagulation [...] e INR Result Reason Comments Faxed to [facility] Reason Onset Date Comments Refill Request 04/08/2025 Reason Comments Patient Question Care Teams (unrecognized sec tion and content) Tax Manager Public Relationship Specialty Start Date End Date Guanakito Reno MD [address] [place], [place] [address] PCP - General Family Practice 05/24/18 13, Pharmacist [phone] [place] [address] Pharmacist Pharmacy 05/31/21 Tax Manager Public Relationship Specialty Start Date End Date Guanakito Reno MD [address] [place] [address] PCP - General Family Practice 05/24/18, Pharmacist [phone] [place] [address] Pharmacist Pharmacy 05/31/21 Tax Manager Public Relationship Specialty Start Date End Date Guanakito Reno MD [address] [place] [address] PCP - General Family Practice 05/24/18, Pharmacist [address] [place] [address] Pharmacist Pharmacy 05/31/21 Tax Manager Public Relationship Specialty Start Date End Date Guanakito Reno MD [address] [place] [address] PCP - General Family Practice 05/24/18 13, Pharmacist [address] [place] [address] Pharmacist Pharmacy 05/31/21 Tax Manager Public Relationship Specialty Start Date End Date Guanakito Reno MD [address] [place] [address] PCP - General Family Practice 05/24/18 13, Pharmacist [id number] [place] [address] Pharmacist Pharmacy 05/31/21 Tax Manager Public Relationship Specialty Start Date End Date Guanakito Reno MD [address] [place] [address] PCP - General Family Practice 05/24/18 13, Pharmacist [address] [place] [address] Pharmacist Pharmacy 05/31/21 Tax Manager Public Relationship Specialty Start Date End Date Guanakito Reno MD [address] [place] [address] PCP - General Family Practice 05/24/18 13, Pharmacist [phone] [place] [address] Pharmacist Pharmacy 05/31/21 Tax Manager Public Relationship Specialty Start Date End Date Guanakito Reno MD [address] [place] [address] PCP - General Family Practice 05/24/18 13, Pharmacist [phone] [facility] [place] [address] Pharmacist Pharmacy 05/31/21 Tax Manager Public Relationship Specialty Start Date End Date Guanakito Reno MD [address] [place] [address] PCP - General Family Practice 05/24/18 13, Pharmacist [phone] [facility] [place] [address] Pharmacist Pharmacy 05/31/21 Tax Manager Public Relationship Specialty Start Date End Date Guanakito Reno MD [address] [place] [address] PCP - General Family Medicine 05/24/18 13, Pharmacist [phone] [facility] [place] [address] Pharmacist Pharmacy 05/31/21 Tax Manager Public Relationship Specialty Start Date End Date Guanakito Reno MD [address] [place] [address] PCP - General Family Medicine 05/24/18 13, Pharmacist [phone] [facility] [place] [address] Pharmacist Pharmacy 05/31/21 Tax Manager Public Relationship Specialty Start Date End Date Guanakito Reno MD [address] [place] [address] PCP - General Family Medicine 05/24/18 13, Pharmacist [phone] [facility] [place] [address] Pharmacist Pharmacy 05/31/21 Tax Manager Public Relationship Specialty Start Date End Date Guanakito Reno MD [address] [place] [address] PCP - General Family Medicine 05/24/18, Pharmacist [phone] [facility] [place] [address] Pharmacist Pharmacy 05/31/21 Tax Manager Public Relationship Specialty Start Date End Date Guanakito Reno MD [address] [place] [address] PCP - General Family Medicine 05/24/18 13, Pharmacist [phone] [facility] [place] [address] Pharmacist Pharmacy 05/31/21 Tax Manager Public Relationship Specialty Start Date End Date Guanakito Reno MD [address] [place] [address] PCP - General Family Medicine 05/24/18 13, Pharmacist [phone] [facility] [place] [address] Pharmacist Pharmacy 05/31/21 Tax Manager Public Relationship Specialty Start Date End Date Guanakito Reno MD [address] [place] [address] PCP - General Family Medicine 05/24/18 13, Pharmacist [address] [facility] [place] [address] Pharmacist Pharmacy 05/31/21 Tax Manager Public Relationship Specialty Start Date End Date Guanakito Reno MD [address] [place] [address] PCP - General Family Medicine 05/24/18, Pharmacist [address] [place] [address] Pharmacist Pharmacy 05/31/21 Tax Manager Public Relationship Specialty Start Date End Date Guanakito Reno MD [address] [place] [address] PCP - General Family Medicine 05/24/18, Pharmacist [phone] [place] [address] Pharmacist Pharmacy 05/31/21 Tax Manager Public Relationship Specialty Start Date End Date Guanakito Reno MD [address] [place] [address] PCP - General Family Medicine 05/24/18, Pharmacist [phone] [place] [address] Pharmacist Pharmacy 05/31/21 Tax Manager Public Relationship Specialty Start Date End Date Guanakito Reno MD [address] [place] [address] PCP - General Family Medicine 05/24/18, Pharmacist [phone] [place] [address] Pharmacist Pharmacy 05/31/21 Tax Manager Public Relationship Specialty Start Date End Date Guanakito Reno MD [address] [place] [address] PCP - General Family Medicine 05/24/18 13, Pharmacist [phone] [facility] [place] [address] Pharmacist Pharmacy 05/31/21 Tax Manager Public Relationship Specialty Start Date End Date Guanakito Reno MD [address] [place] [address] PCP - General Family Medicine 05/24/18 13, Pharmacist [address] [place] [address] Pharmacist Pharmacy 05/31/21 Tax Manager Public Relationship Specialty Start Date End Date Guanakito Reno MD [address] [place] [address] PCP - General Family Medicine 05/24/18 13, Pharmacist [address] [place] [address] Pharmacist Pharmacy 05/31/21 Tax Manager Public Relationship Specialty Start Date End Date Guanakito Reno MD [address] [place] [address] PCP - General Family Medicine 05/24/18, Pharmacist [address] [place] [address] Pharmacist Pharmacy 05/31/21 Tax Manager Public Relationship Specialty Start Date End Date Guanakito Reno MD [address] [place] [address] PCP - General Family Medicine 05/24/18 13, Pharmacist [address] [place] [address] Pharmacist Pharmacy 05/31/21 Tax Manager Public Relationship Specialty Start Date End Date Guanakito Reno MD [address] [place] [address] PCP - General Family Medicine 05/24/18 13, Pharmacist [address] [facility] [place] [address] Pharmacist Pharmacy 05/31/21 Tax Manager Public Relationship Specialty Start Date End Date Guanakito Reno MD [address] [place] [address] PCP - General Family Medicine 05/24/18 13, Pharmacist [address] [place] [address] Pharmacist Pharmacy 05/31/21 Tax Manager Public Relationship Specialty Start Date End Date Guanakiot Reno MD [address] [place] [address] PCP - General Family Medicine 05/24/18 13, Pharmacist [address] [place] [address] Pharmacist Pharmacy 05/31/21 Tax Manager Public Relationship Specialty Start Date End Date Guanakito Reno MD [address] [place] [address] PCP - General Family Medicine 05/24/18 13, Pharmacist [address] [place] [address] Pharmacist Pharmacy 05/31/21 Tax Manager Public Relationship Specialty Start Date End Date Guanakito Reno MD [address] [place] [address] PCP - General Family Medicine 05/24/18 13, Pharmacist [address] [place] [address] Pharmacist Pharmacy 05/31/21 Tax Manager Public Relationship Specialty Start Date End Date Guanakito Reno MD [address] [place] [address] PCP - General Family Medicine 05/24/18, Pharmacist [address] [place] [address] Pharmacist Pharmacy 05/31/21 Tax Manager Public Relationship Specialty Start Date End Date Guanakito Reno MD [address] [place] [address] PCP - General Family Medicine 05/24/18 13, Pharmacist [address] [place] [address] Pharmacist Pharmacy 05/31/21 Tax Manager Public Relationship Specialty Start Date End Date Guanakito Reno MD [address] [place] [address] PCP - General Family Medicine 05/24/18 13, Pharmacist [address] [place] [address] Pharmacist Pharmacy 05/31/21 Tax Manager Public Relationship Specialty Start Date End Date Guanakito Reno MD [address] [place] [address] PCP - General Family Medicine 05/24/18, Pharmacist [address] [place] [address] Pharmacist Pharmacy 05/31/21 Tax Manager Public Relationship Specialty Start Date End Date Guanakito Reno MD [address] [place] [address] PCP - General Family Medicine 05/24/18, Pharmacist [address] [place] [address] Pharmacist Pharmacy 05/31/21 Tax Manager Public Relationship Specialty Start Date End Date Guanakito Reno MD [address] [place] [address] PCP - General Family Medicine 05/24/18, Pharmacist [address] [place] [address] Pharmacist Pharmacy 05/31/21 Tax Manager Public Relationship Specialty Start Date End Date Guanakito Reno MD [address] [place] [address] PCP - General Family Medicine 05/24/18, Pharmacist [address] [place] [address] Pharmacist Pharmacy 05/31/21 Tax Manager Public Relationship Specialty Start Date End Date Guanakito Reno MD [address] [place] [address] PCP - General Family Medicine 05/24/18 13, Pharmacist [address] [place] [address] Pharmacist Pharmacy 05/31/21 Tax Manager Public Relationship Specialty Start Date End Date Guanakito Reno MD [address] [place] [address] PCP - General Family Medicine 05/24/18 13, Pharmacist [address] [place] [address] Pharmacist Pharmacy 05/31/21 Tax Manager Public Relationship Specialty Start Date End Date Guanakito Reno MD [address] [place] [address] PCP - General Family Medicine 05/24/18 13, Pharmacist [address] [place] [address] Pharmacist Pharmacy 05/31/21 Tax Manager Public Relationship Specialty Start Date End Date Guanakito Reno MD [address] [place] [address] PCP - General Family Medicine 05/24/18 13, Pharmacist [address] [place] [address] Pharmacist Pharmacy 05/31/21 Tax Manager Public Relationship Specialty Start Date End Date Guanakito Reno MD [address] [place] [address] PCP - General Family Medicine 05/24/18 13, Pharmacist [address] [place] [address] Pharmacist Pharmacy 05/31/21 Tax Manager Public Relationship Specialty Start Date End Date Guanakito Reno MD [address] [place] [address] PCP - General Family Medicine 05/24/18 13, Pharmacist [address] [place] [address] Pharmacist Pharmacy 05/31/21 Tax Manager Public Relationship Specialty Start Date End Date Guanakito Reno MD [address] [place] [address] PCP - General Family Medicine 05/24/18 13, Pharmacist [address] [place] [address] Pharmacist Pharmacy 05/31/21 Tax Manager Public Relationship Specialty Start Date End Date Guanakito Reno MD [address] [place] [address] PCP - General Family Medicine 05/24/18 13, Pharmacist [address] [place] [address] Pharmacist Pharmacy 05/31/21 Tax Manager Public Relationship Specialty Start Date End Date Guanakito Reno MD [address] [place] [address] PCP - General Family Medicine 05/24/18 13, Pharmacist [address] [place] [address] Pharmacist Pharmacy 05/31/21 Tax Manager Public Relationship Specialty Start Date End Date Guanakito Reno MD [address] [place] [address] PCP - General Family Medicine 05/24/18 13, Pharmacist [address] [place] [address] Pharmacist Pharmacy 05/31/21 Tax Manager Public Relationship Specialty Start Date End Date Guanakito Reno MD [address] [place] [address] PCP - General Family Medicine 05/24/18 13, Pharmacist [address] [place] [address] Pharmacist Pharmacy 05/31/21 Tax Manager Public Relationship Specialty Start Date End Date Guanakito Reno MD [address] [place] [address] PCP - General Family Medicine 05/24/18 13, Pharmacist [address] [place] [address] Pharmacist Pharmacy 05/31/21 Tax Manager Public Relationship Specialty Start Date End Date Guanakito Reno MD [address] [place] [address] PCP - General Family Medicine 05/24/18 13, Pharmacist [address] [place] [address] Pharmacist Pharmacy 05/31/21 Tax Manager Public Relationship Specialty Start Date End Date Guanakito Reno MD [address] [place] [address] PCP - General Family Medicine 05/24/18 13, Pharmacist [address] [facility] [place] [address] Pharmacist Pharmacy 05/31/21 Tax Manager Public Relationship Specialty Start Date End Date Guanakito Reno MD [address] [place] [address] PCP - General Family Medicine 05/24/18 13, Pharmacist [address] [facility] [place] [address] Pharmacist Pharmacy 05/31/21 Corrina Lennon APRN.ATHLETIC EVENTS SCORER [address] [facility] [place] [address] Electronic Controls Repairer Supervisor Family Medicine 09/23/24 Carolina Landeros APRN.ATHLETIC EVENTS SCORER [address] [place] [address] Electronic Controls Repairer Supervisor Family Medicine 09/23/24 Tax Manager Public Relationship Specialty Start Date End Date Guanakito Reno MD [address] [place] [address] PCP - General Family Medicine 05/24/18 13, Pharmacist [address] [place] [address] Pharmacist Pharmacy 05/31/21 Corrina Lennon, TEXTILE CONSERVATOR.ATHLETIC EVENTS SCORER [address] [facility] [place] [address] Electronic Controls Repairer Supervisor Family Medicine 09/23/24 Carolina Landeros TEXTILE CONSERVATOR.ATHLETIC EVENTS SCORER [address] [place] [address] Electronic Controls Repairer Supervisor Family [facility] 09/23/24 Tax Manager Public Relationship Specialty Start Date End Date Guanakito Reno MD [address] [place] [address] PCP - General Family Medicine 05/24/18 13, Pharmacist [address] [place] [address] Pharmacist Pharmacy 05/31/21 Corrina Lennon, TEXTILE CONSERVATOR.ATHLETIC EVENTS SCORER [address] [facility] [place] [address] Electronic Controls Repairer Supervisor Family Medicine 09/23/24 Carolina Landeros TEXTILE CONSERVATOR.ATHLETIC EVENTS SCORER [address] [place] [address] Electronic Controls Repairer Supervisor Family Medicine 09/23/24 Tax Manager Public Relationship Specialty Start Date End Date Guanakito Reno MD [address] [place] [address] PCP - General Family Medicine 05/24/18 13, Pharmacist [address] [facility] [place] [address] Pharmacist Pharmacy 05/31/21 Corrina Lennon APRN.ATHLETIC EVENTS SCORER [address] [facility] [place] [address] Electronic Controls Repairer Supervisor Family Medicine 09/23/24 Carolina Landeros TEXTILE CONSERVATOR.ATHLETIC EVENTS SCORER [address] [place] [address] Electronic Controls Repairer Supervisor Family Medicine 09/23/24 Tax Manager Public Relationship Specialty Start Date End Date Guanakito Reno MD [address] [place] [address] PCP - General Family Medicine 05/24/18 13, Pharmacist [address] [facility] [place] [address] Pharmacist Pharmacy 05/31/21 Corrina Lennon APRN.ATHLETIC EVENTS SCORER [address] [facility] [place] [address] Electronic Controls Repairer Supervisor Family Medicine 09/23/24 Carolina Landeros TEXTILE CONSERVATOR.ATHLETIC EVENTS SCORER [address] [place] [address] Electronic Controls Repairer Supervisor Family Medicine 09/23/24 Tax Manager Public Relationship Specialty Start Date End Date Guanakito Reno MD [address] [place] [address] PCP - General Family Medicine 05/24/18 13, Pharmacist [address] [facility] [place] [address] Pharmacist Pharmacy 05/31/21 Corrina Lennon APRN.ATHLETIC EVENTS SCORER [address] [facility] [place] [address] Electronic Controls Repairer Supervisor Family Medicine 09/23/24 Carolina Landeros APRN.ATHLETIC EVENTS SCORER [address] [place] [address] Electronic Controls Repairer Supervisor Family Medicine 09/23/24 Tax Manager Public Relationship Specialty Start Date End Date Guanakito Reno MD [address] [place] [address] PCP - General Family Medicine 05/24/18 13, Pharmacist [address] [place] [address] Pharmacist Pharmacy 05/31/21 Corrina Lennon APRN.ATHLETIC EVENTS SCORER [address] [place] [address] Electronic Controls Repairer [facility] 09/23/24 Carolina Landeros APRN.ATHLETIC EVENTS SCORER [address] [place] [address] Electronic Controls Repairer [facility] 09/23/24 Tax Manager Public Relationship Specialty Start Date End Date Guanakito Reno MD [address] [place] [address] PCP - General Family Medicine 05/24/18 13, Pharmacist [address] [place] [address] Pharmacist Pharmacy 05/31/21 Corrina Lennon TEXTILE CONSERVATOR.ATHLETIC EVENTS SCORER [address] [place] [address] Electronic Controls Repairer Supervisor Family Medicine 09/23/24 Carolina Landeros APRN.ATHLETIC EVENTS SCORER [address] [place] [address] Electronic Controls Repairer Supervisor Family Medicine 09/23/24 Tax Manager Public Relationship Specialty Start Date End Date Guanakito Reno MD [address] [place] [address] PCP - General Family Medicine 05/24/18 13, Pharmacist [phone] [place] [address] Pharmacist Pharmacy 05/31/21 Corrina Lennon, TEXTILE CONSERVATOR.ATHLETIC EVENTS SCORER [address] [place] [place] [address] Electronic Controls Repairer Supervisor Family Medicine 09/23/24 Carolina Landeros TEXTILE CONSERVATOR.ATHLETIC EVENTS SCORER [address] [place] [address] Electronic Controls Repairer Supervisor Family Medicine 09/23/24 Tax Manager Public Relationship Specialty Start Date End Date Guanakito Reno MD [address] [place] [address] PCP - General Family Medicine 05/24/18 13, Pharmacist [id number] [place] [address] Pharmacist Pharmacy 05/31/21 Corrina Lennon, TEXTILE CONSERVATOR.ATHLETIC EVENTS SCORER [address] [place] [place] [address] Electronic Controls Repairer Supervisor Family Medicine 09/23/24 Carloina Landeros, TEXTILE CONSERVATOR.ATHLETIC EVENTS SCORER [address] [place] [address] Electronic Controls Repairer Supervisor Family Medicine 09/23/24 Tax Manager Public Relationship Specialty Start Date End Date Guanakito Reno MD [address] [place] [address] PCP - General Family Medicine 05/24/18 13, Pharmacist [id number] [place] [address] Pharmacist Pharmacy 05/31/21 Corrina Lennon TEXTILE CONSERVATOR.ATHLETIC EVENTS SCORER [address] [facility] [place], [place] [address] Electronic Controls Repairer Supervisor [facility] 09/23/24 Carolina Landeros TEXTILE CONSERVATOR.ATHLETIC EVENTS SCORER [address] [place] [address] Electronic Controls Repairer Supervisor [facility] 09/23/24 Tax Manager Public Relationship Specialty Start Date End Date Guanakito Reno MD [address] [place], [place] [id number] PCP - General Family Medicine 05/24/18 13, Pharmacist [id number] [place] [address] Pharmacist Pharmacy 05/31/21 Corrina Lennon, TEXTILE CONSERVATOR.ATHLETIC EVENTS SCORER [address] [place] [address] Electronic Controls [facility]airer [facility] 09/23/24 Carolina Landeros, TEXTILE CONSERVATOR.ATHLETIC EVENTS SCORER [address] [place] [address] Electronic Controls Repairer [facility] 09/23/24 Team Status: Active Member Role/Relationship Status [...] BE BASED ON THE PRIMARY CLINICAL RECORDS. [employer] [facility]. provides no warranty or guarantee of the accuracy or completeness of information in this document.
[2025-05-20 09:30] LABS: INR Fingerstick 2.7
== END ==
LOC: OLS.SW 04:00
PROVIDERS: PCP Family Medicine; Referring Provider Family Medicine; Visit Provider Family Medicine
DX: Z79.01 Long term (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 (principal); Z79.899 Other long term (current) drug therapy
CPT/HCPCS: 36416; 85610

== ENCOUNTER → 2025-05-27 | Outpatient (REF) | payer MEDICARE, SELFPAY ==
[2025-05-27 06:48] LABS: INR Fingerstick 2.3
== END ==
LOC: OLS.SW 04:00
PROVIDERS: PCP Family Medicine; Referring Provider Family Medicine; Visit Provider Family Medicine
DX: I48.0 Paroxysmal atrial fibrillation (principal)
CPT/HCPCS: 36416; 85610

== ENCOUNTER → 2025-06-03 | Outpatient (REF) | payer MEDICARE, SELFPAY ==
[2025-06-03 08:04] LABS: Prothrombin Time (Protime)PT. 31.4 SECONDS (11.7-14.9)
== END ==
LOC: OLS.SW 05:00
PROVIDERS: PCP Family Medicine; Visit Provider Family Medicine
DX: Z79.01 Long term (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 (principal)
CPT/HCPCS: 36415; 85610

== ENCOUNTER → 2025-06-10 | Outpatient (REF) | payer SELFPAY | LOC: OLS.SW 06:10 | PROVIDERS: PCP Family Medicine; Visit Provider Internal Medicine | DX: I48.91 Unspecified atrial fibrillation (principal); E11.9 Type 2 diabetes mellitus without complications; Z79.01 Long term (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 | CPT/HCPCS: 36415; 85610 ==

== ENCOUNTER → 2025-06-12 | Outpatient (REF) | payer MEDICARE, SELFPAY ==
[2025-06-12 09:30] LABS: Prothrombin Time (Protime)PT. 22.4 SECONDS (11.7-14.9)
== END ==
LOC: OLS.SW 05:00
PROVIDERS: PCP Family Medicine; Visit Provider Family Medicine
DX: E11.9 Type 2 diabetes mellitus without complications (principal); Z79.01 Long term (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
CPT/HCPCS: 36415; 85610

== ENCOUNTER → 2025-06-17 05:00 | Outpatient (REF) | payer MEDICARE, SELFPAY ==
[2025-06-17 08:46] LABS: INR Fingerstick 2.1
== END ==
LOC: OLS.SW 05:00
PROVIDERS: PCP Family Medicine; Visit Provider Family Medicine
DX: I48.91 Unspecified atrial fibrillation
CPT/HCPCS: 36416; 85610

== ENCOUNTER → 2025-06-24 | Outpatient (REF) | payer MEDICARE, SELFPAY ==
[2025-06-24 09:37] LABS: Prothrombin Time (Protime)PT. 24.2 SECONDS (11.7-14.9)
== END ==
LOC: OLS.SW 07:45
PROVIDERS: PCP Family Medicine; Visit Provider Family Medicine
DX: I48.91 Unspecified atrial fibrillation (principal)
CPT/HCPCS: 36415; 85610

== ENCOUNTER → 2025-07-08 | Outpatient (REF) | payer MEDICARE, SELFPAY ==
--- OUTSIDE RECORDS SUMMARY | 2025-07-08 04:02 | XMS RPT_ITS | CCD ---
Author Organization [facility] Care Team Providers Care Supervisor Metal Placing Name Role Phone VIPIN CARDONA Unavailable Unavailable [...] Guanakito Reno MD Primary Care Provider Haagen TRADE UNION OFFICIAL.Corrina OCONNELL Unavailable [phone] Suppan TRADE UNION OFFICIAL.KOURTNEY, Carolina A Unavailable Suppan TRADE UNION OFFICIAL.KOURTNEY, Carolina A Unavailable [phone] JOSSELYN MAYER Referring Unavailable GUANAKITO RENO Primary [...] MD, Dr. Maurice Attending Provider Unavail able Rosalba FINLEY, Dr. Hernandez Attending Provider Noah JAMES, Dr. Dallas Attending Provider CAROLINA LANDEROS Attending Unavailable SHADIA, GUANAKITO J [...] Unavailable SHADIA, GUANAKITO J Primary Care Unavailable Alfred JAMES, Dr. Maurice Referring Provider Unavail able Shadia, Guanakito Primary Care Unavailable Burt Zamora Attending Unavailable Josafat García Attending Unavailable Shadia, Guanakito Referring Unavailable Rigby, Guanakiot Primary Care Unavailable Josafat García Referring Unavailable Josafat García Attending Unavailable Shadia, Guanakito Primary Care Unavailable Josafat Oliva Attending Unavailable Rigby, Guanakito Primary Care Unavailable Gudla Bianka ORTEZ Attending Unavailable Rigby, Guanakito Primary Care Unavailable Josafat Oliva Attending Unavailable Shadia, Guanakito Primary Care Unavailable Gudla Bianka ORTEZ Attending Unavailable Rigby, Guanakito Primary Care Unavailable Josafat Oliva Attending Unavailable Rigby, Guanakito Primary Care Unavailable Josafat Oliva Attending Unavailable Shadia, Guanakito Primary Care Unavailable Josafat Oliva Attending Unavailable Shadia, Guanakito Primary Care Unavailable Josafat Oliva Attending Unavailable Shadia, Guanakito Primary Care Unavailable Josafat Oliva Attending Unavailable Josafat Oliva Referring Unavailable Rigby, Guanakito Primary Care Unavailable Josafat Oliva Attending Unavailable Josafat Oliva Referring Unavailable Shadia, Guanakito Primary Care Unavailable Josafat Oliva Attending Unavailable [facility] Primary Care Unavailable Ariana Khan Referring Unavailable Ariana Khan Attending Unavailable [facility] Primary Care Unavailable Josafat Oliva Attending Unavailable [facility] Primary Care Unavailable Josafat Oliva Attending Unavailable [facility] Primary Care Unavailable Josafat Oliva Attending Unavailable Josafat Oliva Referring Unavailable [facility] Primary Care Unavailable Josafat Oliva Attending Unavailable [facility] Primary Care Unavailable David Navarrete Attending Unavailable [facility] Primary Care Unavailable [facility] Referring Unavailable Allergies Allergy Classification Reported Allergen(s) Allergy Type Date of Onset Reaction(s) Facility (4 sources) Environmental Allergies: Uncoded; Translations: [Environmental Allergies: Uncoded] Allergy to substance 5 [facility] Medications Current Medications Medication Drug Class(es) Dates [...] mg/ml / simethicone 4 mg/ml oral suspension (3 sources) Start: 5 take 1 mL by mouth every four hours at bedtime Alum-Mag Hydroxide-Simeth (Antacid) 200-200-20 mg/5 mL suspension Active 30 mL PO Q4H as needed May 02, 2025 12:00am administer between meals and at bedtime atorvastatin 80 mg oral tablet (20 sources) HMG-CoA Reductase Inhibitor Start: 0 End: 6 take 1 tablet by mouth at bedtime Atorvastatin 80 mg tablet Active 80 mg PO AT BEDTIME March 12, 2020 12:00am Start: 08-21-2019 End: 03-12-2020 Atorvastatin 40 mg [...] For cholesterol. bisacodyl 10 mg rectal suppository (3 sources) Stimulant Laxative Star t: 04-15 Bisacodyl [...] 1 tablet by mary th once daily. escitalopram 10 mg oral tablet (20 sources) Serotonin Reuptake Inhibitor Star t: 09-15 End: 06-04 take 1 tablet by mouth once daily Escitalopram Oxalate (Lexapro) 10 mg tablet Active 10 mg PO DAILY September 28, 2020 1:00am Comment on above: Take 1 tablet by mary th once daily. finasteride 5 mg oral tablet (20 sources) 5-alpha Reductase Inhibitor Star t: 01-15 End: 06-04 take 1 tablet by mouth once daily Finasteride 5 MG tablet Active 5 mg PO DAILY February 04, 2019 12:00am Comment on above: Take 1 tablet by mary th once daily. glucagon (rdna) 1 mg injection (3 sources) Antihypoglycemic Agent Star t: 04-15 Glucagon (Glucagon Emergency Kit (Human)) 1 mg recon soln Active 1 mg SC Q20M as needed May 02, 2025 12:00am until target blood sugar attained glucose 0.4 mg/mg oral gel (3 sources) Star t: 04-15 Dextrose (Glucose Gel) 40 % gel Active 10 g PO Q15M as needed May 02, 2025 12:00am until symptoms of low blood sugar are controlled guaiFENesin 20 mg/ml oral solution (3 sources) Star t: 04-15 take 200 mg [...] (Duplicate Entry) loratadine 1 mg/ml oral solution (13 sources) Start: 03-07-2025 take 5 mg by mouth once Loratadine (Allergy Relief (Loratadine)) 5 mg/5 mL solution Active 5 mg PO ONCE March 07, 2025 12:00am Start: 01-21-2025 End: 07-20-2025 take 1 tablet by mouth once daily loratadine 5 mg chewable tablet Indications: Seasonal allergic rhinitis, unspecified trigger Take 1 tablet by mouth once daily. 90 tablet 1 01/21/2025 07/20/2025 Active Magnesium Hydroxide (3 sources) Start: 05-02-2025 take 1 mL by mouth once as needed Magnesium Hydroxide (Milk Of Magnesia) 400 mg/5 mL suspension Active 30 mL PO ONCE as needed May 02, 2025 12:00am memantine hydrochloride 10 mg oral tablet (20 sources) U-hiyjsf-T-aspart ate Receptor Antagonist Start: 08-21-2019 End: 01-21-2025 take 1 tablet by mouth once daily Memantine (Namenda) 10 mg tablet Active 10 mg PO DAILY August 21, 2019 1:00am Comment on above: Take 1 tablet [...] x3 Non-Adherent Bandage (TELFA) 6 X 3 bndg (7 sources) Start: 12-22-2023 End: 03-21-2024 Non-Adherent Bandage (TELFA) 6 X 3 bndg Indications: Abrasion of arm, left, initial [...] / sodium phosphate, monobasic 161 mg/ml enema (3 sources) Start: 05-02-2025 Sodium Phospha tahmina (Fleet [...] PO .COMPLEX August 27, 2019 3:39pm Dr. Shadia Suárez Start: 08-21-2019 End: 08-27-2019 take 1.5 tablets [...] / HYDROcodone bitartrate 5 mg oral tablet (3 sources) Opioid Agonist Start: 03-07-2025 End: 05-02-2025 [...] on above: Take 1 tablet by mary daily with breakfast. hydroCHLOROthiazide 12.5 mg / [...] 07/10/2024 Active linagliptin 5 mg oral tablet (3 sources) Dipeptidyl Peptidase 4 Inhibitor Start: End: [...] bedtime. metFORMIN hydrochloride 500 mg oral tablet (7 sources) Biguanide Start: End: take 1 tablet [...] Receptor gamma Agonist, Thiazolidinedione Start: 02-05-20 End: 07-18-20 25 take 1 tablet by mouth once daily Pioglitazone 30 MG tablet Discontinued 30 mg PO DAILY February 04, 2019 12:00am May 02, 2025 10:37am Comment on above: Take 1 tablet by mary th once daily. sertraline 50 mg oral tablet (3 sources) Serotonin Reuptake Inhibitor Start: 08-21-20 End: 09-28-20 take 1 tablet by mouth once daily Sertraline 50 mg tablet Discontinued 50 mg PO DAILY August 21, 2019 1:00am September 28, 2020 1:59pm Problems Active Problems Problem Classification Problem Date Documented Date Episodic/Chronic Acute cerebrovascular disease (3 sources) Cerebrovascular accident; Translations: [Cerebral infarction, unspecified] [...] Onset: 5 Chronic Fracture of upper limb (12 sources) Unspecified fracture of shaft of humerus, [...] Vaccination needed; Translations: [Encounter for immunization] Episodic Infective arthritis and osteomyelitis (except that caused by tuberculosis or sexually transmitted disease) (1 source) Acute hematogenous osteomyelitis, unspecified site; Translations: [Acute hematogenous osteomyelitis, unspecified site] Onset: 5 Chronic Inflammation; infection of eye (except that caused [...] 4 Resolved: 4 11-11-2016 Chronic Other aftercare (3 sources) 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; Translations: [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] Onset: 0 Episodic Other aftercare (2 sources) Other middle or intermediate school principal (current) drug therapy; Translations: [Other fdc (current) drug therapy] Onset: 5 Episodic Other circulatory disease (3 sources) Disorder of carotid artery; Translations: [Disorder [...] (1 source) Aortic Stenosis Onset: 4 Unclassified (3 sources) Closed fracture of right proximal humerus Unclassified (3 sources) S42.201A - Unspecified fracture of upper [...] sources) Long-term current use of anticoagulant; Translations: [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] Onset: 02-04-2020 02-04-2020 [...] Time w/INRon INR Coag (PPP) [Relative time] 2.1 {INR} Normal [facility] Comment on above: Performed By: #### L 300.3900 #### [facility] [address] [place], [address] PT Coag (PPP) [Time] 24.2 s High 11.7-14.9 [facility] Comment on above: Performed By: #### L 300.3900 #### [facility] [address] [place], [address] Protime w/INR Fingerstickon 06-17-2025 INR Coag (PPP) [Relative time] 2.1 {INR} Normal [facility] Comment on above: Result Comment: Crit ical Value > 4.0 Performed By: #### L 300.3900 #### [facility] [address] [place], [address] Protime Coagsen 22.8 SEC High 11.7-14.9 [facility] Comment on above: Performed By: #### L 300.3900 #### [facility] [address] [place], [address] Prothrombin Time w/INRon INR Coag (PPP) [Relative time] 1.9 {INR} Normal [facility] Comment on above: Order Comment: 317.1 Performed By: #### L 300.3900 #### [facility] [address] [place], [address] PT Coag (PPP) [Time] 22.4 s High 11.7-14.9 [facility] Comment on above: Order Comment: 317.1 Performed By: #### L 300.3900 #### [facility] [address] [place], [address] Prothrombin Time w/INRon INR Normal [facility] Comment on above: Result Comment: PLEAleisha JONES SEE 28:CG18 Performed By: #### L 300.3900 #### [facility] [address] [place], [address] PROTIME Normal 11.7-14.9 [facility] Comment on above: Result Comment: PLEA SE SEE 28:CG18 Performed By: #### L 300.3900 #### [facility] [address] [place], [address] International normalized rat io (INR) calculationOrdered By: Josafat Simon on 06-03-2025 INR Coag (Bld) [Relative time] 3.0 {INR} [facility] Prothrombin Time w/INRon INR Coag (PPP) [Relative time] 3.0 {INR} Normal [facility] Comment on above: Order Comment: FINGE RSTICK CONFIRMATION Performed By: #### L 300.3900 #### [facility] [address] [place], [address] PT Coag (PPP) [Time] 31.4 s High 11.7-14.9 [facility] Comment on above: Order Comment: FINGE RSTICK CONFIRMATION Performed By: #### L 300.3900 #### [facility] [address] [place], [address] Prothrombin timeOrdered By: Josafat Simon on 06-03-2025 PT Coag (PPP) [Time] 31.4 s High 11.7-14.9 [facility] International normalized rat io (INR) measurement by fingerstickOrdered By: Josafat Simon on 05-27-2025 INR Coag (BldC) [Relative time] 2.3 [facility] Comment on above: Critical Value > 4.0 Protime w/INR Fingerstickon 05-27-2025 INR Coag (PPP) [Relative time] 2.3 {INR} Normal [facility] Comment on above: Result Comment: Crit ical Value > 4.0 Performed By: #### L 9200.0000 #### [facility] [address] [place], [address] Protime Coagsen 24.6 SEC High 11.7-14.9 [facility] Comment on above: Performed By: #### L 9200.0000 #### [facility] [address] [place], [address] Whole blood prothrombin time Ordered By: Josafat Simon on 05-27-2025 PT Coag (Bld) [Time] 24.6 s High 11.7-14.9 [facility] International normalized rat io (INR) measurement by fingerstickOrdered By: Josafat Simon on 05-20-2025 INR Coag (BldC) [Relative time] 2.7 [facility] Comment on above: Critical Value > 4.0 Protime w/INR Fingerstickon 05-20-2025 INR Coag (PPP) [Relative time] 2.7 {INR} Normal [facility] Comment on above: Result Comment: Crit ical Value > 4.0 Performed By: #### L 300.3900 #### [facility] [address] [place], [address] Protime Coagsen 28.2 SEC High 11.7-14.9 [facility] Comment on above: Performed By: #### L 300.3900 #### [facility] [address] [place], [address] Whole blood prothrombin time Ordered By: Josafat Simon on 05-20-2025 PT Coag (Bld) [Time] 28.2 s High 11.7-14.9 [facility] International normalized rat io (INR) calculationOrdered By: Josafat Simon on 05-15-2025 INR Coag (Bld) [Relative time] 2.3 {INR} [facility] Prothrombin Time w/INRon INR Coag (PPP) [Relative time] 2.3 {INR} Normal [facility] Comment on above: Order Comment: 317.1 Performed By: #### L 300.3900 #### [facility] [address] [place], [address] (901) Prothrombin timeOrdered By: Josaaft Simon on 05-15-2025 PT Coag (PPP) [Time] 25.3 s High 11.7-14.9 [facility] Comment on above: Order Comment: 317.1 Performed By: #### L 300.3900 #### [facility] [address] [place], [address] (531) International normalized rat io (INR) calculationOrdered By: Josafat Simon on 05-13-2025 INR Coag (Bld) [Relative time] 1.7 {INR} [facility] Prothrombin Time w/INRon INR Coag (PPP) [Relative time] 1.7 {INR} Normal [facility] Comment on above: Order Comment: 317.1 Performed By: #### L 300.3900 #### [facility] [address] [place], [address] (831 PT Coag (PPP) [Time] 20.6 s High 11.7-14.9 [facility] Comment on above: Order Comment: 317.1 Performed By: #### L 300.3900 #### [facility] [address] [facility] [place], [address] Prothrombin timeOrdered By: Josafat Simon on 05-13-2025 PT Coag (PPP) [Time] 20.6 s High 11.7-14.9 [facility] International normalized rat io (INR) calculationOrdered By: Josafat Simon on 05-08-2025 INR Coag (Bld) [Relative time] 3.2 {INR} [facility] Prothrombin Time w/INRon INR Coag (PPP) [Relative time] 3.2 {INR} Normal [facility] Comment on above: Order Comment: 317.1 Performed By: #### L 300.3900 #### [facility] [address] [place], [address] PT Coag (PPP) [Time] 33.1 s High 11.7-14.9 [facility] Comment on above: Order Comment: 317.1 Performed By: #### L 300.3900 #### [facility] [address] [place], [address] Prothrombin timeOrdered By: Josafat Simon on 05-08-2025 PT Coag (PPP) [Time] 33.1 s High 11.7-14.9 [facility] International normalized rat io (INR) calculationOrdered By: Josafat Simon on 05-06-2025 INR Coag (Bld) [Relative time] 4.1 {INR} High [facility] Comment on above: CRITICAL VALUE ZABALA D TO IRMA SOLOMON (OLS.)05/06/25 0801 Travis Yost.RESULTS READ BACK BY SAME. Prothrombin Time w/INRon INR Coag (PPP) [Relative time] 4.1 {INR} Invalid Interpretation Code [facility] Comment on above: Order Comment: FINGE RSTICK CONFIRMATION Result Comment: CRIT ICAL VALUE CALLED TO IRMA SOLOMON (OLS.SW) 05/06/25 0801 Travis Yost. RESULTS READ BACK BY SAME. Performed By: #### L 300.3900 #### [facility] [address] [place], [address] PT Coag (PPP) [Time] 40.8 s High 11.7-14.9 [facility] Comment on above: Order Comment: FINGE RSTICK CONFIRMATION Performed By: #### L 300.3900 #### [facility] [address] [place], [address] Prothrombin timeOrdered By: Josafat Simon on 05-06-2025 PT Coag (PPP) [Time] 40.8 s High 11.7-14.9 [facility] Protime w/INR Fingerstickon 05-06-2025 INR Coag (PPP) [Relative time] 4.3 {INR} Invalid Interpretation Code [facility] Comment on above: Result Comment: Crit ical Value > 4.0 Performed By: #### L 300.3900 #### [facility] [address] [place], [place], [address] Protime Coagsen 42.3 SEC High 11.7-14.9 [facility] Comment on above: Performed By: #### L 300.3900 #### [facility] [address] [place], [place], [address] Whole blood prothrombin time Ordered By: Josafat Simon on 05-06-2025 PT Coag (Bld) [Time] 42.3 s High 11.7-14.9 [facility] Orthopedic Visit Reporton Orthopedic Visit Report [facility] [address] [place] [address] [address] [place], [place] [address] OFFICE VISIT Date of Service: 05/02/25 MR#: [id number] Acct: [id number] Name: CAL MITCHELL Rep #: [id number] : 1945 Provider: Dr. David granados DO Age/Sex: 79/M Location[place] [facility] [place] Status: Signed Intake Vital Signs 03/07/25 12:57 [...] History acetaminophen 650 mg rectal 650 mg ND Q4H PRN 05/02/25 5 History suppository aluminum-mag hydroxide-simethicone 30 ml PO Q4H PRN 05/02/25 History 200 mg-200 mg-20 mg/5 mL oral susp (Antacid) bisacodyl 10 mg rectal suppository 10 mg ND QDAY PRN 05/02/2505/02 History (Dulcolax (bisacodyl)) dextrose [...] hr sodium phosphates 19 gram-7 118 ml ND ONCE PRN 05/02/25 History gram/118 mL enema [...] is here today with his son and [id number]-[id number]. Usually ambulates with a walker or a cane. Had a fall. Was mainly complaining about pain to the upper extremity was seen in a peripheral hospital referred here given a sling they found approximately wrist fracture on the right side. The patient does not speak very much but he converses overall well he is qvmnk-dyel-kbnpzxyd fairly stoic. Plan:79-year-old man with a (more content not included)... Normal [facility] Shoulder min 2 Viewson 05-02 Shoulder min 2 Views [facility] Imaging Services [address] [place] [address] Shoulder min 2 Views MR#: [id number] Acct: [id number] Name: CAL MITCHELL Rep #: [id number] : 1945 M 79 From: Magdalena Lala PCP: Dr. Guanakito Reno MD Status: DEP AMB Study: Shoulder min 2 Views Date of Exam: 05/02/25 Exam# [id number] Ordering Dr: David Navarrete DO PROCEDURE: SHOULDER [...] changes involving the glenohumeral joint. Reading Location: [id number] CC: Dr. David Navarrete DO; Dr. Guanakito Reno MD Curator Herbarium: Signed Normal [facility] International normalized rat io (INR) calculationOrdered By: Josafat Simon on 05-01-2025 INR Coag (Bld) [Relative time] 3.2 {INR} [facility] Prothrombin Time w/INRon INR Coag (PPP) [Relative time] 3.2 {INR} Normal [facility] Comment on above: Performed By: #### L 300.3900 #### [facility] [address] [place], [address] PT Coag (PPP) [Time] 33.6 s High 11.7-14.9 [facility] Comment on above: Performed By: #### L 300.3900 #### [facility] [address] [place], [address] Prothrombin timeOrdered By: Josafat Simon on 05-01-2025 PT Coag (PPP) [Time] 33.6 s High 11.7-14.9 [facility] International normalized rat io (INR) calculationOrdered By: Josafat Simon on 04-29-2025 INR Coag (Bld) [Relative time] 3.1 {INR} [facility] Prothrombin Time w/INRon INR Coag (PPP) [Relative time] 3.1 {INR} Normal [facility] Comment on above: Performed By: #### L 300.3900 #### [facility] [place], [address] Prothrombin timeOrdered By: Josafat Simon on 04-29-2025 PT Coag (PPP) [Time] 32.2 s High 11.7-14.9 [facility] Comment on above: Performed By: #### L 300.3900 #### [facility] [address] [place], [address] International normalized rat io (INR) measurement by fingerstickOrdered By: Josafat Simon on 04-24-2025 INR Coag (BldC) [Relative time] 3.5 [facility] Comment on above: Critical Value > 4.0 Protime w/INR Fingerstickon 04-24-2025 INR Coag (PPP) [Relative time] 3.5 {INR} Normal [facility] Comment on above: Result Comment: Crit ical Value > 4.0 Performed By: #### L 300.3900 #### [facility] [address] [place], [address] Protime Coagsen 35.4 SEC High 11.7-14.9 [facility] Comment on above: Performed By: #### L 300.3900 #### [facility] [address] [place], [address] Whole blood prothrombin time Ordered By: Josafat Simon on 04-24-2025 PT Coag (Bld) [Time] 35.4 s High 11.7-14.9 [facility] Anion gap in Serum or Plasma Ordered By: Bianka Gonzalez on 04-17-2025 Anion gap [Moles/Vol] 10 mmol/L 5-15 [facility] BUN/creatinine ratioOrdered By: Bianka Gonzalez on 04-17-2025 Urea nitrogen/Creatinine [Mass ratio] 21.1 mg/mg High 10-20 [facility] Basic Metabolic Profile (BMP )on 04-17-2025 BUN/CRE 21.1 RATIO High 10-20 [facility] Comment on above: Order Comment: 213 Performed By: #### L 300.3900, L100.0500, L500.2500 #### [facility] [address] [place], [address] Calcium [Mass/Vol] 8.2 mg/dL Normal 7.6-11.0 [facility] Comment on above: Order Comment: 213 Performed By: #### L 300.3900, L100.0500, L500.2500 #### [facility] [address] [place], [address] Chloride [Moles/Vol] 111 mmol/L High 98-108 [facility] Comment on above: Order Comment: 213 Performed By: #### L 300.3900, L100.0500, L500.2500 #### [facility] [address] [place], [address] CO2 [Moles/Vol] 17.2 mmol/L Low 21.0-32.0 [facility] Comment on above: Order Comment: 213 Performed By: #### L 300.3900, L100.0500, L500.2500 #### [facility] [address] [place], [address] Creatinine [Mass/Vol] 2.45 mg/dL High 0.70-1.20 [facility] Comment on above: Order Comment: 213 Performed By: #### L 300.3900, L100.0500, L500.2500 #### [facility] [address] [place], [address] GAP 10 Normal 5-15 [facility] Comment on above: Order Comment: 213 Performed By: #### L 300.3900, L100.0500, L500.2500 #### [facility] [address] [place], [address] GFR/1.73 sq M.predicted among non-blacks MDRD (S/P/Bld) [Vol rate/Area] 26 mL/min/{1.73_m2} Low >60 [facility] Comment on above: Order Comment: 213 Result Comment: mL/m in/1.73m2 CKD-EPI Creatinine Equation (2020) Performed By: #### L 300.3900, L100.0500, L500.2500 #### [facility] [address] [place], [address] Glucose [Mass/Vol] 137 mg/dL High 70-99 [facility] Comment on above: Order Comment: 213 Performed By: #### L 300.3900, L100.0500, L500.2500 #### [facility] [address] [place], [address] Potassium [Moles/Vol] 4.9 mmol/L Normal 3.3-5.1 [facility] Comment on above: Order Comment: 213 Performed By: #### L 300.3900, L100.0500, L500.2500 #### [facility] [address] [place], [address] Sodium [Moles/Vol] 139 mmol/L Normal 133-145 [facility] Comment on above: Order Comment: 213 Performed By: #### L 300.3900, L100.0500, L500.2500 #### [facility] [address] [place], [address] Urea nitrogen [Mass/Vol] 52 mg/dL High 4-19 [facility] Comment on above: Order Comment: 213 Performed By: #### L 300.3900, L100.0500, L500.2500 #### [facility] [address] [place], [address] CBC-Complete Blood Cnt No Di ffon 04-17-2025 Erythrocyte distribution width (RBC) [Ratio] 16.4 % High 11.6-14.6 [facility] Comment on above: Order Comment: 213 Performed By: #### L 300.3900, L100.0500, L500.2500 #### [facility] [address] [place], [address] Hematocrit (Bld) [Volume fraction] 35.2 % Low 40-54 [facility] Comment on above: Order Comment: 213 Performed By: #### L 300.3900, L100.0500, L500.2500 #### [facility] [address] [place], [address] Hemoglobin (Bld) [Mass/Vol] 10.6 g/dL Low 13.0-16.5 [facility] Comment on above: Order Comment: 213 Performed By: #### L 300.3900, L100.0500, L500.2500 #### [facility] [address] [place], [address] MCH (RBC) [Entitic mass] 29.2 pg Normal 27.0-32.0 [facility] Comment on above: Order Comment: 213 Performed By: #### L 300.3900, L100.0500, L500.2500 #### [facility] [address] [place], [address] MCHC (RBC) [Mass/Vol] 30.1 g/dL Low 32-36 [facility] Comment on above: Order Comment: 213 Performed By: #### L 300.3900, L100.0500, L500.2500 #### [facility] [address] [place], [address] MCV (RBC) [Entitic vol] 97.0 fL High 80-94 [facility] Comment on above: Order Comment: 213 Performed By: #### L 300.3900, L100.0500, L500.2500 #### [facility] [address] [place], [address] Platelet mean volume (Bld) [Entitic vol] 10.0 fL Normal 6.2-12.0 [facility] Comment on above: Order Comment: 213 Performed By: #### L 300.3900, L100.0500, L500.2500 #### [facility] [address] [place], [address] Platelets (Bld) [#/Vol] 161 10*3/uL Normal 150-450 [facility] Comment on above: Order Comment: 213 Performed By: #### L 300.3900, L100.0500, L500.2500 #### [facility] [address] [place], [address] RBC (Bld) [#/Vol] 3.63 10*6/uL Low 4.6-6.2 [facility] Comment on above: Order Comment: 213 Performed By: #### L 300.3900, L100.0500, L500.2500 #### [facility] [address] [place], [address] RDW SD 58.6 fl High 35.1-43.9 [facility] Comment on above: Order Comment: 213 Performed By: #### L 300.3900, L100.0500, L500.2500 #### [facility] [address] [place], [address] WBC (Bld) [#/Vol] 7.2 10*3/uL Normal 4.4-11.0 [facility] Comment on above: Order Comment: 213 Performed By: #### L 300.3900, L100.0500, L500.2500 #### [facility] [address] [place], [address] Carbon dioxide, total [Moles /volume] in Central venous bloodOrdered By: Bianka Gonzalez on 04-17-2025 CO2 [Moles/Vol] 17.2 mmol/L Low 21.0-32.0 [facility] Chloride assayOrdered By: Josr Gonzalez on 04-17-2025 Chloride [Moles/Vol] 111 mmol/L High 98-108 [facility] Erythrocyte distribution wid th ratioOrdered By: Bianka Gonzalez on 04-17-2025 Erythrocyte distribution width (RBC) [Ratio] 16.4 % High 11.6-14.6 [facility] Erythrocyte distribution wid th standard deviationOrdered By: Bianka Gonzalez on 04-17-2025 Erythrocyte distribution width (RBC) [Ratio] 58.6 fl High 35.1-43.9 [facility] Glomerular filtration rate ( GFR) estimation/1.73 sq m using serum, plasma, or whole bOrdered By: iBanka Gonzalez on 04-17-2025 GFR/1.73 sq M.predicted among non-blacks MDRD (S/P/Bld) [Vol rate/Area] 26 mL/min/{1.73_m2} Low >60 [facility] Comment on above: mL/min/1.73m2 CKD-EP I Creatinine Equation (2020) Hematocrit Auto (Bld) [Volum e fraction]Ordered By: Bianka Gonzalez on 04-17-2025 Hematocrit (Bld) [Volume fraction] 35.2 % Low 40-54 [facility] Hemoglobin measurementOrdere d By: Bianka Gonzalez on 04-17-2025 Hemoglobin (Bld) [Mass/Vol] 10.6 g/dL Low 13.0-16.5 [facility] International normalized rat io (INR) calculationOrdered By: Bianka Gonzalez on 04-17-2025 INR Coag (Bld) [Relative time] 2.7 {INR} [facility] MCV (mean corpuscular volume ) determinationOrdered By: Bianka Gonzalez on 04-17-2025 MCV (RBC) [Entitic vol] 97.0 fL High 80-94 [facility] Mean corpuscular hemoglobin (MCH) determinationOrdered By: Bianka Gonzalez on 04-17-2025 MCH (RBC) [Entitic mass] 29.2 pg 27.0-32.0 [facility] Mean corpuscular hemoglobin concentration (MCHC) determinationOrdered By: Bianka Gonzalez on 04-17-2025 MCHC (RBC) [Mass/Vol] 30.1 g/dL Low 32-36 [facility] Mean platelet volume determi nationOrdered By: Bianka Gonzalez on 04-17-2025 Platelet mean volume (Bld) [Entitic vol] 10.0 fL 6.2-12.0 [facility] Platelet countOrdered By: Josr Gonzalez on 04-17-2025 Platelets (Bld) [#/Vol] 161 10*3/uL 150-450 [facility] Potassium measurement (mass/ volume)Ordered By: Bianka Gonzalez on 04-17-2025 Potassium (Unsp spec) [Mass/Vol] 4.9 mmol/L 3.3-5.1 [facility] Prothrombin Time w/INRon INR Coag (PPP) [Relative time] 2.7 {INR} Normal [facility] Comment on above: Order Comment: 213 Performed By: #### L 300.3900, L100.0500, L500.2500 #### [facility] [address] [place], [address] PT Coag (PPP) [Time] 29.7 s High 11.7-14.9 [facility] Comment on above: Order Comment: 213 Performed By: #### L 300.3900, L100.0500, L500.2500 #### [facility] [address] [place], [address] Prothrombin timeOrdered By: Bianka Gonzalez on 04-17-2025 PT Coag (PPP) [Time] 29.7 s High 11.7-14.9 [facility] RBC Auto (Bld) [#/Vol]Ordere d By: Bianka Gonzalez on 04-17-2025 RBC (Bld) [#/Vol] 3.63 10*6/uL Low 4.6-6.2 [facility] Serum creatinine measurement (mass/volume)Ordered By: Bianka Gonzalez on 04-17-2025 Creatinine [Mass/Vol] 2.45 mg/dL High 0.70-1.20 [facility] Serum glucose measurement (m ass/volume)Ordered By: Bianka Gonzalez on 04-17-2025 Glucose [Mass/Vol] 137 mg/dL High 70-99 [facility] Serum or plasma calcium cornelius urement (mass/volume)Ordered By: Bianka Gonzalez on 04-17-2025 Calcium [Mass/Vol] 8.2 mg/dL 7.6-11.0 [facility] Serum or plasma urea nitroge n measurement (mass/volume)Ordered By: Bianka Gonzalez on 04-17-2025 Urea nitrogen [Mass/Vol] 52 mg/dL High 4-19 [facility] Sodium levelOrdered By: Nestor Gonzalez on 04-17-2025 Sodium [Moles/Vol] 139 mmol/L 133-145 [facility] White blood cell (WBC) count Ordered By: Bianka Gonzalez on 04-17-2025 WBC (Bld) [#/Vol] 7.2 10*3/uL 4.4-11.0 [facility] CNPNon 04-15-2025 [facility] Telephone (PHAMTE) -------- PAULACAL CRAIG ([id number]) 1945 M Date Time Provider Department 04/15/25 [place] PHAMTE During your visit today, we recorded the following information about you: Twin Cole [facility] 04/15/2025 9:12 AM Signed [facility] Ambulatory Pharmacy Anticoagulation Clinic Anticoagulation Episode Summary Anticoagulation Care Providers Provider Role Specialty Phone number Guanakito Reno MD [facility] [phone] Cal Mitchell is a 79 year old [...] Pharmacy Anticoagulation Clinic Pharmacy Antico[facility] Clinic Pager: [phone]. Twin Cole RPh 04/29/2025 8:54 AM Signed [...] to patient's daughter. Patient has moved to [facility]. His INRs are monitored there. Will discharge patient from [facility] Daniel (Talent[facility]Ashley Granados 05/06/2025 2:31 PM Signed Pharmacy Anticoagulation Clinic Discharge completed at this time. Patient may be re-referred, if deemed appropriate. 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 Normal [facility] Molly [facility] CAL MITCHELL ([id number]) 1945 M Date Time Provider Department 04/14/25 GUANAKITO R[place] [facility] During your visit today, we recorded the [...] Fully Assessed Reason for Visit: Patient Question [8587] Prescriptions as of 04/14/2025 - warfarin (COUMADIN) [...] stenosis of unspecified carotid a*10/25/2013 03/26/2024 Frequency [GMZ5432] 02/11/2016 03/26/2024 BPH (benign prostatic hypertrophy) with [...] Hypertensive kidney disease with stage 3 chroni*01/29/2020 care home (current) use of anticoagulants [Z79.*02/04/2020 Dementia, vascular, [...] 05/03/2024 Bilateral (more content not included)... [facility] -------- CAL MITCHELL ([id number]) 1945 M Date Time Provider Department 03/28/25 [facility]ITO [facility] During your visit today, we recorded the following information about you: Niels Rodriges RN 03/28/2025 1:06 PM Signed Faxed recent ov notes to [facility] per daughter, January request. . January reports she talked to [facility] about patient going to live there and [facility] instructed her to have pcp office send an H AND P to them for review. Allergies As of Date: 03/28/2025 (No Known Allergies) Date Reviewed: 03/05/2025 Reviewed by: Jack Holcomb RN - Fully Assessed Reason for Visit: Faxed to [facility] [Other] Prescriptions as of 03/28/2025 [...] Insulin: No - Lancets (ONE TOUCH DELICA) [facility] lancets Test blood sugar(s) one time daily. 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 Medicine [phone] Cal Mitchell is a 79 year old [...] instructed to call [facility] at [phone] with any questions or concerns. Alejandro Molina [facility] Clinical Pharmacist, Pharmacy Anticoagulation Clinic Pharmacy Anticoagulation Clinic Pager: [phone] Alejandro Molina RP 04/07/2025 3:31 PM Signed [...] Insulin: No - Lancets (ONE TOUCH DELICA) [facility] lancets Test blood sugar(s) one time daily. [...] PTon 03-24-2025 Inital Evaluation (1) - PT [facility] Physical Therapy [facility] [address] [place] [address] / REHABILITATION SERVICES INITIAL EVALUATION MR#: [id number] Acct: [id number] Name: CAL MITCHELL Rep #: [id number] : 1945 79 From: Rosa MCGRAWT Referring Dr.: Dr. Josafat García MD Status: R [facility] Insurance: [facility] [id number] SELF PAY INSURANCE Patient's Visit Information Visit [...] PROM due to guarding. Strength: Scap: poor, station cashier: fair, no other motions tested due to [...] to be FAXED BACK to us at [phone] for Medicare purposes. For Medicare only, by signing this I certify the plan of care. Please let me know if there are questions or concerns regarding this plan of care. Physician Signature: Date: ____ 03/24/25 1256 CC: Dr. Josafat García MD; Dr. Guanakito Reno MD E (more content not included)... Normal [facility] Orthopedic Visit Reporton Orthopedic Visit Report [facility] [address] [place] [address] OFFICE VISIT Date of Service: 03/07/25 MR#: [id number] Acct: [id number] Name: CAL MITCHELL Rep #: [id number] : 1945 Provider: Dr. Josafat murcia MD Age/Sex: 79/M [place] [facility] Status: Signed Intake Vital Signs 03/06/25 16:19 [...] is here today with his son and jyyyatrw-lq-sen. Usually ambulates with a walker or a cane. Had a fall. Was mainly complaining about pain to the upper extremity was seen in a peripheral hospital referred here given a sling they found approximately wrist fracture on the right side. The patient does not speak very much but he converses overall well he is cblda-rlga-yacbldfe fairly stoic. Supplemental Info Proximal humerus fracture [...] a r (more content not included)... Normal [facility] CNOVon 03-06-2025 [facility] -------- CAL MITCHELL ([id number]) 1945 M Date Time Provider Department 03/06/25 3:20 PM CAROLINA LANDEROS [facility] During your visit today, we recorded the following information about you: Pulse Blood pressure 68/minute 124/58 Carloina Landeros, [employer].[facility] 03/06/2025 4:30 PM Signed This is [...] in the driveway yesterday. - Described as slightly displaced. - Pain severity rated as 5/10 at rest and 9-10/10 with movement. - Currently taking [place] for pain management. - Denies pain elsewhere [...] 250.00. Insulin: No [facility] blood sugar(s) one time [...] ED NOTEon 03-06-2025 ED NOTE HNO ID: [id number] Author: JACK HOLCOMB RN Service: ? Author Type: Registered Nurse Type: ED Notes Filed: 03/06/2025 00:19 Note Text: Provided meds. Placed in sling. Assisted to bathroom and back Normal [facility] ED PROV NOTEon 03-06-2025 ED PROV NOTE HNO ID: [id number] Author: KEDAR HERNANDEZ MD Service: Emergency Medicine [...] reviewed and are negative. Physical Exam Vitals [03/05/252207] BP Pulse Temp Temp src Resp SpO2 [...] (more content not included)... Normal [facility] CT BRAIN WO IVCONon 03-05-20 CT BRAIN WO IVCON * * *Final Report* * * DATE OF EXAM: Mar 05 2025 11:55PM [facility] 0504 - CT BRAIN WO IVCON / [...] wall calcifications, including in the left-sided carotid. Operative Supervisor (topogram) images: Known (in correlation to earlier [...] vertebrae with counting from the craniocervical junction. Curator Herbarium: PSCAmirah Transcribe Date/Time: Mar 06 2025 12:48A Dictated by : CAMELIA GROVES MD This examination was interpreted and the report reviewed and electronically signed by: CAMELIA GROVES MD on Mar 06 2025 1:08AM EST [id number] Normal [facility] CT CERVICAL SPINE WO IVCONon 03-05-2025 CT CERVICAL SPINE WO IVCON * * *Final Report* * * DATE OF EXAM: Mar 05 2025 11:55PM [facility] 0505 - CT CERVICAL SPINE WO IVCON [...] wall calcifications, including in the left-sided carotid. Operative Supervisor (topogram) images: Known (in correlation to earlier [...] vertebrae with counting from the craniocervical junction. Curator Herbarium: MAC Transcribe Date/Time: Mar 06 2025 12:48A Dictated by : CAMELIA GROVES MD This examination was interpreted and the report reviewed and electronically signed by: CAMELIA GROVES MD on Mar 06 2025 1:08AM EST [id number] Normal [facility] ED NOTEon 03-05-2025 ED NOTE HNO ID: [id number] Author: JACK HOLCOMB RN Service: ? Author Type: Registered Nurse Type: ED Notes Filed: 03/05/2025 23:05 Note Text: Assisted to bathroom and back Normal [facility] ED NOTE HNO ID: [id number] Author: JACK HOLCOMB RN Service: ? Author Type: Registered Nurse Type: ED Notes Filed: 03/05/2025 22:10 Note Text: Pt c/o fall with right shoulder injury when wheel chair turned over. Denies neck and head injury. [place], warm, dry. No apparent distress. Alert and oriented. Normal [facility] XR HUMERUS 2V AP/LAT RTon XR [...] separation. No dislocation of the glenohumeral joint. Curator Herbarium: MAC Transcribe Date/Time: Mar 06 2025 12:37A Dictated by : LINNEA DIAS MD This examination was interpreted and the report reviewed and electronically signed by: LINNEA DIAS MD on Mar 06 2025 12:40AM EST [id number] Normal [facility] XR SHLDR >/=3V AP/JR AP/OTH R [...] separation. No dislocation of the glenohumeral joint. Curator Herbarium: MAC Transcribe Date/Time: Mar 06 2025 12:37A Dictated by : LINNEA DIAS MD This examination was interpreted and the report reviewed and electronically signed by: LINNEA DIAS MD on Mar 06 2025 12:40AM EST [id number] Normal [facility] CNPNon 02-20-2025 CNPN Telephone (PHAMTE) -------- CAL MITCHELL ([id number]) 1945 M Date Time Provider Department 02/20/25 JIMMY CARRIZALES PHAMTE During your visit today, we recorded the following information about you: Jimmy Carrizales, [facility] 02/20/2025 9:00 AM Signed [facility] Ambulatory Pharmacy Anticoagulation Clinic Anticoagulation Episode Summary Anticoagulation Care Providers Provider Role Specialty Phone number Guanakito Reno MD [facility] [phone] Cal Mitchell is a 79 year old [...] 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 Jimmy Carrizales [facility] Clinical Pharmacist, Pharmacy Anticoagulation Clinic Pharmacy Anticoagulation Clinic Pager: [phone]. Twin Cole bobbi 03/06/2025 12:38 PM Signed Patient was due [...] an injectable anticoagulant - No Twin Cole [facility] Jimmy Carrizales [facility] 03/13/2025 7:40 AM Signed Cal Mitchell was sent [employer] message and reminded to test INR today or as soon as possible. Jimmy Carrizales RPh Sina MolinaoryStuart 03/20/2025 3:45 PM Signed No INR has been received or is in process at this time, will add to discharge list and start the discharge process at this time. Stuart Costa (Motorcycle Assembler)Ashley 03/24/2025 10:52 AM Signed No return call from patient. Letter sent. FINAL ATTEMPT letter sent at this time. If no response from patient within 3 weeks of letter being sent, patient will be discharged from PAC at that time. Will also route to referring MD as FYI and to see if office can assist in reaching patient. Ashley Sanchez CPhT (Technical Support Intern) Pharmacy Anticoagulation Clinic Guanakito Reno MD 03/24/2025 [...] Fu [148] Cmt: Home INR Primary Visit Diagnosis:care home (current) use of anticoagulants [Z79.01] Other Visit [...] [facility] Molly 01-31-2025 LUCIO Telephone ([facility]) -------- PAULA,CAL L ([id number]) 1945 M Date Time Provider Department 01/31/25 KAMRAN AYON During your visit today, we recorded the following information about you: Kamran Ayon [facility] 01/31/2025 12:55 PM Signed [facility] Ambulatory Pharmacy Anticoagulation Clinic Anticoagulation Episode Summary Anticoagulation Care Providers Provider Role Specialty Phone number Guanakito Reno MD 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 [Z79.01] Other Visit [...] Comment: Speci men Type: BLOOD SPECIMENOrdering Facility: [facility] Address: [address] [place] [address] Performed By: #### 5 7021-8 ####[facility] LABCLIA [id number] [place] [address] [place] Basophils/100 WBC (Bld) 0.9 % Normal C [facility] Comment on above: Order Comment: Speci men Type: BLOOD SPECIMENOrdering Facility: [facility] Address: [address] [place] [address] Performed By: #### 5 7021-8 ####[facility] LABCLIA [id number] [address], [place] [address] [place] Differential cell count method Nom (Bld) Auto Normal [facility] Comment on above: Order Comment: Speci men Type: BLOOD SPECIMENOrdering Facility: [facility] Address: [address] [place] [address] Performed By: #### 5 7021-8 ####[facility] LABCLIA [id number] [address], [place] [address] [place] Eosinophils (Bld) [#/Vol] 0.25 10*3/uL Normal <0.46 [facility] Comment on above: Order Comment: Speci men Type: BLOOD SPECIMENOrdering Facility: [facility] Address: [address] [place] [address] Performed By: #### 5 7021-8 ####[facility] LABCLIA [id number] [place] [address] [place] Eosinophils/100 WBC (Bld) 3.3 % Normal [facility] Comment on above: Order Comment: Speci men Type: BLOOD SPECIMENOrdering Facility: [facility] Address: [address] [place] [address] Performed By: #### 5 7021-8 ####[facility] LABCLIA [id number] [place] [address] [place] Erythrocyte distribution width (RBC) [Ratio] 14.8 % Normal 11.5-15.0 [facility] Comment on above: Order Comment: Speci men Type: BLOOD SPECIMENOrdering Facility: [facility] Address: [address] [place] [address] Performed By: #### 5 7021-8 ####[facility] LABCLIA [id number] [place] [address] [place] Hematocrit (Bld) [Volume fraction] 41.2 % Normal 39.0-51.0 [facility] Comment on above: Order Comment: Speci men Type: BLOOD SPECIMENOrdering Facility: [facility] Address: [address] [place] [address] Performed By: #### 5 7021-8 ####[facility] LABCLIA [id number] [place] [address] [place] Hemoglobin (Bld) [Mass/Vol] 12.5 g/dL Low 13.0-17.0 [facility] Comment on above: Order Comment: Speci men Type: BLOOD SPECIMENOrdering Facility: [facility] Address: [address] [place] [address] Performed By: #### 5 7021-8 ####[facility] LABIA [id number] [place] [address] [place] Immature granulocytes (Bld) [#/Vol] 10*3/uL Normal <0.10 [facility] Comment on above: Order Comment: Speci men Type: BLOOD SPECIMENOrdering Facility: [facility] Address: [address] [place] [address] Performed By: #### 5 7021-8 ####[facility] LABIA [id number] [place] [address] [place] Immature granulocytes/100 WBC (Bld) 0.3 % Normal [facility] Comment on above: Order Comment: Speci men Type: BLOOD SPECIMENOrdering Facility: [facility] Address: [address] [place] [address] Performed By: #### 5 7021-8 ####[facility] LABCLIA [id number] [place] [id number] [place] Lymphocytes (Bld) [#/Vol] 1.28 10*3/uL Normal 1.00-4.00 [facility] Comment on above: Order Comment: Speci men Type: BLOOD SPECIMENOrdering Facility: [facility] Address: [address] [place] [address] Performed By: #### 5 7021-8 ####[facility] LABCLIA [id number] [place] [address] [place] Lymphocytes/100 WBC (Bld) 17.1 % Normal [facility] Comment on above: Order Comment: Speci men Type: BLOOD SPECIMENOrdering Facility: [facility] Address: [address] [place] [address] Performed By: #### 5 7021-8 ####[facility] LABIA [id number] [place] [address] [place] MCH (RBC) [Entitic mass] 29.3 pg Normal 26.0-34.0 [facility] Comment on above: Order Comment: Speci men Type: BLOOD SPECIMENOrdering Facility: [facility] Address: [address] [place] [address] Performed By: #### 5 7021-8 ####[facility] LABIA [id number] [place] [address] [place] MCHC (RBC) [Mass/Vol] 30.3 g/dL Low 30.5-36.0 [facility] Comment on above: Order Comment: Speci men Type: BLOOD SPECIMENOrdering Facility: [facility] Address: [address] [place] [address] Performed By: #### 5 7021-8 ####[facility] LABIA [id number] [place] [address] [place] MCV (RBC) [Entitic vol] 96.7 fL Normal 80.0-100.0 C [facility] Comment on above: Order Comment: Speci men Type: BLOOD SPECIMENOrdering Facility: [facility] Address: [address] [place] [address] Performed By: #### 5 7021-8 ####[facility] LABIA [id number] [place] [address] [place] Monocytes (Bld) [#/Vol] 0.61 10*3/uL Normal <0.87 [facility] Comment on above: Order Comment: Speci men Type: BLOOD SPECIMENOrdering Facility: [facility] Address: [address] [place] [address] Performed By: #### 5 7021-8 ####[facility] LABCLIA [id number] [address] [address] [place] Monocytes/100 WBC (Bld) 8.2 % Normal [facility] Comment on above: Order Comment: Speci men Type: BLOOD SPECIMENOrdering Facility: [facility] Address: [address] [place] [address] Performed By: #### 5 7021-8 ####[facility] LABCLIA [id number] [place] [address] [place] Neutrophils (Bld) [#/Vol] 5.25 10*3/uL Normal 1.45-7.50 [facility] Comment on above: Order Comment: Speci men Type: BLOOD SPECIMENOrdering Facility: [facility] Address: [address] [place] [address] Performed By: #### 5 7021-8 ####[facility] LABCLIA [id number] [place] [address] [place] Neutrophils/100 WBC (Bld) 70.2 % Normal [facility] Comment on above: Order Comment: Speci men Type: BLOOD SPECIMENOrdering Facility: [facility] Address: [address] [place] [address] Performed By: #### 5 7021-8 ####[facility] LABCLIA [id number] [place] [id number] [place] Nucleated RBC (Bld) [#/Vol] 10*3/uL Normal <0.01 [facility] Comment on above: Order Comment: Speci men Type: BLOOD SPECIMENOrdering Facility: [facility] Address: [address] [place] [address] Performed By: #### 5 7021-8 ####[facility] LABCLIA [id number] [address] [place] [address] [place] Nucleated RBC/100 WBC (Bld) [Ratio] 0.0 /100 WBC Normal [facility] Comment on above: Order Comment: Speci men Type: BLOOD SPECIMENOrdering Facility: [facility] Address: [address] [place] [address] Performed By: #### 5 7021-8 ####[facility] LABCLIA [id number] [address], [place] [address] [place] Platelet mean volume (Bld) [Entitic vol] 10.3 fL Normal 9.0-12.7 [facility] Comment on above: Order Comment: Speci men Type: BLOOD SPECIMENOrdering Facility: [facility] Address: [address] [place] [address] Performed By: #### 5 7021-8 ####[facility] LABCLIA [id number] [place] [address] [place] Platelets (Bld) [#/Vol] 198 10*3/uL Normal 150-400 [facility] Comment on above: Order Comment: Speci men Type: BLOOD SPECIMENOrdering Facility: [facility] Address: [address] [place] [address] Performed By: #### 5 7021-8 ####[facility] LABCLIA [id number] [address], [place] [address] [place] RBC (Bld) [#/Vol] 4.26 10*6/uL Normal 4.20-6.00 [facility] Comment on above: Order Comment: Speci men Type: BLOOD SPECIMENOrdering Facility: [facility] Address: [address] [place] [address] Performed By: #### 5 7021-8 ####[facility] LABCLIA [id number] [address], [facility]95 [place] WBC (Bld) [#/Vol] 7.48 10*3/uL Normal 3.70-11.00 [facility] Comment on above: Order Comment: Speci men Type: BLOOD SPECIMENOrdering Facility: [facility] Address: [address] [place] [address] Performed By: #### 5 7021-8 ####[facility] LABCLIA [id number] JESICA MARSHALL [id number] [place] [address] [place] CNOVon 01-21-2025 CNOV Office Visit (FAMPWS ) -------- CAL MITCHELL ([id number]) 1945 M Date Time Provider Department 01/21/25 3:40 PM CAROLINA LANDEROS [facility] During your visit today, we recorded the following information about you: Temperature Pulse Blood pressure Weight 97.6 degrees 59/minute 122/60 117 kg Carolina Landeros APRN.COURT ORDERLY 01/21/2025 4:11 PM Signed This is a 79 year old male who presents today with: Patient presents with: 6 Month Exam HISTORY OF PRESENT ILLNESS: Cal Lua Paula is a 79 year old male. Patient [...] taking lisinopril Monitors bp at home: Yes. [place] checks it, ok there Denies side effects: [...] pain,every 5 min x3 blood sugar diagnostic ([employer] ULTRA TEST) test strip Test blood sugar(s) one times daily. Dx: 250.00. Insulin: No Lancets (ONE TOUCH DELICA) [facility] lancets Test blood sugar(s) one time daily. [...] 01-21-2025 Albumin [Mass/Vol] 4.1 g/dL Normal 3.9-4.9 [facility] Comment on above: Order Comment: Marcelle shultz Type: BLOOD SPECIMENOrdering Facility: [facility] Address: [address] [place] [address] Performed By: #### [place], [address]-9, 2072-9, 66541-3 ####[facility] LABCLIA [id number] [place] [address] [place] ALP [Catalytic activity/Vol] 153 U/L High 38-113 [facility] Comment on above: Order Comment: Speci men Type: BLOOD SPECIMENOrdering Facility: [facility] Address: [address] [place], [place] [address] Performed By: #### L IPNF, , 2132-06, ####[facility] LABCLIA [id number] [address] [address] [place] ALT [Catalytic activity/Vol] 19 U/L Normal 10-54 [facility] Comment on above: Order Comment: Speci men Type: BLOOD SPECIMENOrdering Facility: [facility] Address: [address] [place], [place] [address] Performed By: #### L IPNF, , 2132-06, ####[facility] LABCLIA [id number] [place] [address] [place] Anion gap [Moles/Vol] 15 mmol/L Normal 8-15 [facility] Comment on above: Order Comment: Speci men Type: BLOOD SPECIMENOrdering Facility: [facility] Address: [address] [place] [address] Performed By: #### L IPNF, , 2132-06, ####[facility] LABCLIA [id number] [place] [address] [place] AST [Catalytic activity/Vol] 23 U/L Normal 14-40 [facility] Comment on above: Order Comment: Speci men Type: BLOOD SPECIMENOrdering Facility: [facility] Address: [address] [place], [place] [address] Performed By: #### L IPNF, , 2132-06, ####[facility] LABCLIA [id number] [address] [address] [place] Bilirubin [Mass/Vol] 0.6 mg/dL Normal 0.2-1.3 [facility] Comment on above: Order Comment: Speci men Type: BLOOD SPECIMENOrdering Facility: [facility] Address: [address] [place] [address] Performed By: #### L IPNF, , 2132-06, ####[facility] LABCLIA [id number] [place] [address] [place] Calcium [Mass/Vol] 8.8 mg/dL Normal 8.5-10.2 [facility] Comment on above: Order Comment: Speci men Type: BLOOD SPECIMENOrdering Facility: [facility] Address: [address] [place] [address] Performed By: #### L IPNF, , 2132-06, ####[facility] LABCLIA [id number] [place] [address] [place] Chloride [Moles/Vol] 106 mmol/L Normal 98-107 [facility] Comment on above: Order Comment: Speci men Type: BLOOD SPECIMENOrdering Facility: [facility] Address: [address] [place] [address] Performed By: #### L IPNF, , 2132-06, ####[facility] LABCLIA [id number] [place] [address] [place] CO2 [Moles/Vol] 21 mmol/L Low 22-30 [facility] Comment on above: Order Comment: Speci men Type: BLOOD SPECIMENOrdering Facility: [facility] Address: [address] [place] [address] Performed By: #### L IPNF, , 2132-06, ####[facility] LABCLIA [id number] [place] [address] [place] Creatinine [Mass/Vol] 2.34 mg/dL High 0.73-1.22 [facility] Comment on above: Order Comment: Speci men Type: BLOOD SPECIMENOrdering Facility: [facility] Address: [address] [place] [address] Performed By: #### L IPNF, 90128-0, 2132-06, 73340-5 ####[facility] LABCLIA [id number] [place] [address] [place] Creatinine and Glomerular filtration rate.predicted panel (S/P/Bld) 27 mL/min/1.73m??? Low >=60 [facility] Comment on above: Order Comment: Marcelle shultz Type: BLOOD SPECIMENOrdering Facility: [facility] Address: [address] [place] [address] Result Comment: Lina mated Glomerular Filtration Rate [...] actual GFR. Performed By: #### L IPNF, 71581-5, 2132-06, ####[facility] LABCLIA [id number] [place] [id number] [place] Glucose [Mass/Vol] 122 mg/dL High 74-99 [facility] Comment on above: Order Comment: Marcelle shultz Type: BLOOD SPECIMENOrdering Facility: [facility] Address: [address] [place] [address] Result Comment: The [place] Diabetes Association (ADA) provides guidance for cutoff [...] Standards of Medical Care in Diabetes 2016, [place] [employer] Association. Diabetes Care. 2016.39(Suppl 1). Performed By: #### L IPNF, 32182-1, 2132-06, 18307-3 ####[facility] LABCLIA [id number] [address] [address] [place] Potassium [Moles/Vol] 4.3 mmol/L Normal 3.7-5.1 [facility] Comment on above: Order Comment: Speci men Type: BLOOD SPECIMENOrdering Facility: [facility] Address: [address] [place] [address] Performed By: #### L IPNF, , 2132-06, 19225-9 ####[facility] LABCLIA [id number] [place] [address] [place] Protein [Mass/Vol] 7.2 g/dL Normal 6.3-8.0 [facility] Comment on above: Order Comment: Speci men Type: BLOOD SPECIMENOrdering Facility: [facility] Address: [address] [place] [address] Performed By: #### L IPNF, , 2132-06, ####[facility] LABCLIA [id number] [address] [address] [place] Sodium [Moles/Vol] 142 mmol/L Normal 136-144 [facility] Comment on above: Order Comment: Speci men Type: BLOOD SPECIMENOrdering Facility: [facility] Address: [address] [place] [address] Performed By: #### L IPNF, , 2132-06, 08767-7 ####[facility] LABCLIA [id number] [address] [address] [place] Urea nitrogen [Mass/Vol] 29 mg/dL High 9-24 [facility] Comment on above: Order Comment: Speci men Type: BLOOD SPECIMENOrdering Facility: [facility] Address: [address] [place] [address] Performed By: #### L IPNF, 78799-1, 2132-9, 82424-8 ####[facility] LABIA [id number] [address] OF [facility] HbA1c (Bld)on 01-21-2025 Average glucose Estimated from glycated hemoglobin (Bld) [Mass/Vol] 146 mg/dL Normal [facility] Comment on above: Order Comment: Marcelle shultz Type: BLOOD SPECIMENOrdering Facility: [facility] Address: [address] [place] [address] Result Comment: eAG: (Estimated average glucose) is a calculated value from HgbA1c and is union representative of the average blood glucose level in the last 2-3 month period. Performed By: #### 5 5454-3 ####[facility] LABIA [id number] [address] OF [facility] HbA1c (Bld) [Mass fraction] 6.7 % High 4.3-5.6 [facility] Comment on above: Order Comment: Marcelle shultz Type: BLOOD SPECIMENOrdering Facility: [facility] Address: [address] [place] [address] Result Comment: Amer [place] Diabetes Association guidelines indicate that patients with HgbA1c in the range 5.7-6.4% are at increased risk for development of diabetes, and intervention by lifestyle modification may be beneficial. HgbA1c greater or equal to 6.5% is considered diagnostic of diabetes. Performed By: #### 5 5454-3 ####[facility] LABIA [id number] [address] [address] [facility] LIPID PANEL, NONFASTINGon Cholesterol [Mass/Vol] 164 mg/dL Normal <200 [facility] Comment on above: Order Comment: Marcelle shultz Type: BLOOD SPECIMENOrdering Facility: [facility] Address: [address] [place] [address] Result Comment: <200 mg/dL, Desirable 200-239 mg/dL, Borderline high >239 mg/dL, High Performed By: #### L IPNF, , 2132-06, ####[facility] LABCLIA [id number] [address] [place] HDL CHOLESTEROL, NF 42 mg/dL Normal >39 [facility] Comment on above: Order Comment: Speci men Type: BLOOD SPECIMENOrdering Facility: [facility] Address: [address] [place] [address] Result Comment: 40-5 9 mg/dL, Acceptable >59 mg/dL, High: Negative risk factor for coronary heart disease <40 mg/dL, Low: Positive risk factor for coronary heart disease Performed By: #### L IPNF, , 2132-06, ####[facility] LABCLIA [id number] [address] LDL CHOLESTEROL, NF 96 mg/dL Normal <100 [facility] Comment on above: Order Comment: Speci men Type: BLOOD SPECIMENOrdering Facility: [facility] Address: [address] [place] [address] Result Comment: <100 mg/dL, Optimal 100-129 mg/dL, Near optimal/above optimal 130-159 mg/dL, Borderline high 160-189 mg/dL, High >189 mg/dL, Very high Secondary prevention optimal LDL Cholesterol levels are recommended to be < 70 mg/dL Performed By: #### L IPNF, , 2132-06, ####[facility] LABCLIA [id number] [address] OF [place] LDL/HDL RATIO, NF 2.29 mg/dL Normal <2.54 [facility] Comment on above: Order Comment: Speci men Type: BLOOD SPECIMENOrdering Facility: [facility] Address: [address] [place] [address] Result Comment: Refe rence: 1. National Cholesterol Education Program ATP III Guideline At-A-Glance Quick Desk Reference: National Heart, Lung, and Blood [place]. National Institutes of Health. 2001: NIH Publication No. 01-3305. 2. An International Atherosclerosis Society position paper: global recommendations for the management of dyslipidemia: executive summary, Atherosclerosis. 2014: 232(2):410-413. Performed By: #### L IPNF, , 2132-06, ####[facility] LABCLIA [id number] [address] [address] [place] NON HDL CHOL, NF 122 mg/dL Normal <130 [facility] Comment on above: Order Comment: Speci men Type: BLOOD SPECIMENOrdering Facility: [facility] Address: [address] [place] [address] Result Comment: <130 mg/dL, Optimal 130-159 mg/dL, Near optimal/above optimal 160-189 mg/dL, Borderline high 190-219 mg/dL, High >219 mg/dL, Very high Secondary prevention optimal non HDL Cholesterol levels are recommended to be <100 mg/dL Performed By: #### L IPNF, , 2132-06, ####[facility] LABCLIA [id number] [address] [address] [place] T CHOL/HDL RATIO NF 3.90 mg/dL Normal <5.10 [facility] Comment on above: Order Comment: Jocelini lexii Type: BLOOD SPECIMENOrdering Facility: [facility] Address: [address] [place] [address] Performed By: #### L IPNF, , 2132-06, ####[facility] LABCLIA [id number] [address] [address] [place] TRIGLYCERIDES, NF 129 mg/dL Normal <150 [facility] Comment on above: Order Comment: Jocelini men Type: BLOOD SPECIMENOrdering Facility: [facility] Address: [address] [place] [address] Result Comment: <150 mg/dL, Normal 150-199 mg/dL, Borderline high 200-499 mg/dL, High >499 mg/dL, Very high Performed By: #### L IPNF, , 2132-06, 50504-1 ####[facility] LABCLIA [id number] [place] [address] [place] VLDL CHOLESTEROL, NF 26 mg/dL Normal <30 [facility] Comment on above: Order Comment: Speci men Type: BLOOD SPECIMENOrdering Facility: [facility] Address: [address] [place] [address] Performed By: #### L IPNF, , 2132-06, ####[facility] LABCLIA [id number] [place] [address] [place] Magnesium [facility]21 Magnesium [Mass/Vol] 2.3 mg/dL Normal 1.7-2.3 [facility] Comment on above: Order Comment: Speci men Type: BLOOD SPECIMENOrdering Facility: [facility] Address: [address] [place] [address] Performed By: #### L IPNF, , 2132-06, ####[facility] LABCLIA [id number] [address] OF [place] Vit B12 SerPl-mCncon 025 Cobalamin (Vitamin B12) [Mass/Vol] 385 pg/mL Normal 232-1245 [facility] Comment on above: Order Comment: Speci men Type: BLOOD SPECIMENOrdering Facility: [facility] Address: [address] [place] [address] Performed By: #### L IPNF, , 2132-06, ####[facility] LABCLIA [id number] [place] [address] [place] Molly 01-08-2025 KOURTNEYN Telephone ([facility]) -------- CAL MITCHELL ([id number]) 1945 M Date Time Provider Department 01/08/25 RUTHIE CUEVAS During your visit today, we recorded the following information about you: Ruthie Cuevas [facility] 01/08/2025 9:14 AM Signed [facility] Antico[facility] Anticoagulation Episode Summary Anticoagulation Care Providers Provider Role Specialty Phone number Guanakito Reno MD 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 Ruthie Cuevas RPh 01/29/2025 11:08 AM Addendum Cal Mitchell was called and reminded to test INR today or as soon as possible. LVMX for January. Ruthie Cuevas PharmD Pharmacy Anticoagulation Clinic Allergies As of Date: 01/08/2025 (No Known Allergies) Date Reviewed: 08/06/2024 Reviewed by: Bi Cantu LPN - Fully Assessed Reason for Visit: Anticoagulation Follow Up [145] Cmt: Home INR result Primary Visit Diagnosis:care home (current) use of anticoagulants [Z79.01] Other Visit [...] [facility] CAL MITCHELL ([id number]) 1945 M Date Time Provider Department 12/30/24 TWIN COLE During your visit today, we recorded the following information about you: Twin Cole [facility] 12/30/2024 9:14 AM Signed [facility] Anticoagulation Clinic Anticoagulation Episode Summary Anticoagulation Care Providers Provider Role Specialty Phone number Guanakito Reno MD [facility] [phone] Cal Mitchell is a 79 year old [...] missed any doses of warfarin. Twin Cole [facility] Clinical Pharmacist, Pharmacy Anticoagulation Clinic Pharmacy Anticoagulation Clinic Pager: [phone]. Octavio (Motorcycle Assembler)Ruben 12/30/2024 9:15 AM Signed Roscoe'larry called regarding INR result for patient. Result has been addressed below, no further action needed. Ruben Cunningham, Technical Support Intern (crew leader gluing) Pharmacy Anticoagulation Clinic Jimmy Carrizales [facility] 01/07/2025 12:02 PM Signed Cal Mitchell was called, lvmx and reminded to test INR today or as soon as possible given that we left a VM last week also. [facility] As of Date: 12/30/2024 (No Known [...] Insulin: No - Lancets (ONE TOUCH DELICA) [facility] lancets Test blood sugar(s (more content not included)... Normal [facility] 12-11-2024 CNPN Telephone (BRIAN) -------- CAL MITCHELL ([id number]) 1945 M Date Time Provider Department 12/11/24 JIMMY CARRIZALES During your visit today, we recorded the following information about you: Jimmy Carrizales [facility] 12/11/2024 9:51 AM Signed [facility] Anticoagulation Clinic Anticoagulation Episode Summary Anticoagulation Care Providers Provider Role Specialty Phone number Guanakito Reno MD 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 Jimmy Carrizales [facility] Clinical Pharmacist, Pharmacy Anticoagulation Clinic Pharmacy Anticoagulation Clinic Pager: [phone]. Ruthie Cuevas [facility] 12/25/2024 11:14 AM Signed Patient was [...] Fu [148] Cmt: Home INR Primary Visit Diagnosis:care home (current) use of anticoagulants [Z79.01] Other Visit [...] sugar grey (more content not included)... [facility]NPNon 11-26-2024 CNPN Telephone (PHAMTE) -------- CAL MITCHELL ([id number]) 1945 M Date Time Provider Department 11/26/24 TWIN COLE PHAMTE During your visit today, we recorded the following information about you: Twin Cole [facility] 11/26/2024 5:29 PM Signed [facility]ulatory [facility] Anticoagulation Clinic Anticoagulation Episode Summary Anticoagulation Care Providers Provider Role Specialty Phone number Guanakito Reno MD [facility] [phone] Cal Mitchell is a 79 year old [...] Pharmacy Anticoagulation Clinic Pharmacy Anticoagulation Clinic Pager: [phone]. Yamilka Heath RN 11/27/2024 8:43 AM Signed Chris Ruggiero left a VM regarding the patient's INR result on 11/26/2024. Noted result has been addressed below. BENJIE Cardenas Kim, RPh 12/10/2024 10:31 AM Signed Cal Mitchell was called and reminded to test INR today or as soon as possible. Left VM on number. Twin Cole RPh Allergies As of [...] Insulin: No - Lancets (ONE TOUCH DELICA) [facility] [facility] [place] Test blood sugar(s) one time daily. Dx: 250.00. Insulin: No Problem Lis (more content not included)... Normal [facility]20[facility]PHADesign2LaunchE[facility] -------- CAL MITCHELL ([id number]) 1945 M Date Time Provider Department 10/28/24 ALEJANDRO MOLINA During your visit today, we recorded the following information about you: Alejandro Molina RPh 10/28/2024 5:07 PM Signed [facility] Ambulatory Pharmacy Anticoagulation Clinic Anticoagulation Episode Summary Anticoagulation Care Providers Provider Role Specialty Phone number Guanakito Reno MD [facility] [phone] Cal Mitchell is a 79 year old [...] instructed to call [facility] at [phone] with any questions or concerns. Alejandro Molina RPh Clinical Pharmacist, Pharmacy Anticoagulation Clinic Pharmacy Anticoagulation Clinic Pager: [phone] Alejandro Molina RPh 11/11/2024 4:42 PM Signed Patient was due to test INR today. Will continue to monitor for results. Will follow up in one week if no results received. Alejandro Molina RPh 11/18/2024 4:27 PM Signed Cal Mitchell was called and reminded to test INR today or as soon as possible. Stuart Costa Kim, RPh 11/25/2024 2:53 PM Signed Added to discharge list Roldanministerio (Motorcycle Assembler), Ashley 11/26/2024 2:43 PM Signed DISCHARGE No return call from patient. Letter sent. FINAL ATTEMPT letter sent at this time. If no response from patient within 4 weeks, patient will be discharged from PAC at that time. Will also route to referring MD as FYI and to see if office can assist in reaching patient. Ashley Sanchez CPhT (Technical Support Intern) Pharmacy Anticoagulation Clinic Guanakito Reno MD 11/26/2024 [...] understand things anymore. 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 CHANCE Ramirez ([employer])Ashley 11/26/2024 5:07 PM Signed PATIENT CALL Patient [...] received. PAC will await results. Ashley Sanchez ([facility] (more content not included)... Normal [facility] 10-21-2024 CNPN Telephone (SANCHOWS) -------- CAL MITCHELL ([id number]) 1945 M Date Time Provider Department 10/21/24 GUANAKITO RENO During your visit today, we recorded the following information about you: Ashley De Dios, BENJIE 10/21/2024 1:29 PM Signed Pts son in [...] in one to two weeks Ashley De Dios, BENJIE 10/21/2024 2:04 PM Signed Pts ALEC Chen [...] for Visit: Patient Update [1234] Patient Question [[id number]] Prescriptions as of 10/21/2024 - atorvastatin (LIPITOR) [...] stenosis of unspecified carotid a*10/25/2013 03/26/2024 Frequency [[id number]] 02/11/2016 03/26/2024 BPH (benign prostatic hypertrophy) with urinary*02/11/2016 Adhesive capsulitis of right shoulder [M75.01] 05/15/2018 Aortic stenosis [I35.0] 05/24/2018 CKD (chronic kidney disease) stage 3, GFR 30-59*05/24/2018 03/26/2024 Lung (more content not included)... Normal [facility] CNPNon 10-01-2024 CNPN Telephone (PHAMTE) -------- CAL MITCHELL ([id number]) 1945 M Date Time Provider Department 10/01/24 TWIN [place] PHAKAROLYN During your visit today, we recorded the following information about you: Twin Cole [facility] 10/01/2024 9:42 AM Signed [facility] Ambulatory Pharmacy Anticoagulation Clinic Anticoagulation Episode Summary Anticoagulation Care Providers Provider Role Specialty Phone number Guanakito Reno MD [facility] Family Medicine [phone] Cal Mitchell is a 79 year old [...] Pharmacy Anticoagulation Clinic Pharmacy Anticoagulation Clinic Pager: [phone]. Twin Cole RPh 10/15/2024 12:10 PM Signed [...] an injectable anticoagulant - No Twin Cole bobbi Twin Cole RPh 10/22/2024 10:56 AM Signed Cal Mitchell was called and reminded to test INR today or as soon as possible. Twin Cole Stuart Allergies As of Date: 10/01/2024 (No Known [...] tablet Dissolve (more content not included)... Normal [facility] Molly 08-26-2024 KOURTNEYN Telephone ([facility]) -------- CAL MITCHELL ([id number]) 1945 M Date Time Provider Department 08/26/24 ALEJANDRO MOLINA During your visit today, we recorded the following information about you: Alejandro Molina bobbi 08/26/2024 6:35 AM Signed [facility] Ambulatory Pharmacy Anticoagulation Clinic Anticoagulation Episode Summary Anticoagulation Care Providers Provider Role Specialty Phone number Guanakito Reno MD [facility] [phone] Cal Mitchell is a 79 year old [...] warfarin instructions: 5 mg every day Sent G4S message Advised patient to continue current weekly dose as noted above Next INR check due on 09/09/2024 Alejandro Molina [facility] Clinical Pharmacist, Pharmacy Anticoagulation Clinic Pharmacy Anticoagulation Clinic Pager: [phone]. Alejandro Molina bobbi 09/09/2024 4:38 PM Signed Patient was due to test INR today. Will continue to monitor for results. Will follow up in one week if no results received. Alejandro Molina [facility] 09/23/2024 2:35 PM Signed Cal Lua Paula was called and reminded to test INR today or as soon as possible. Alejandro Molina [facility] Twin Cole [facility] 09/30/2024 12:31 PM Signed Added to [...] Insulin: No - Lancets (ONE TOUCH DELICA) [facility] lancets Test blood sugar(s) one time daily. Dx: 250.00. Insulin: No Problem List As Of Date 08/26/2024 Noted Resolved Hyperlipidemia, mixed [E78.2] Essential hypertension [I10] Peripheral arterial disease (HCC) [I73.9] Other symptoms involving cardiovascular system * 07/20/2016 ACTINIC KERATOSIS [L57.0] 10/12/2005 IMPACTED CERUMEN [H61.20] (more content not included)... Normal [facility] Molly 08-16-2024 [facility] -------- CAL MITCHELL ([id number]) 1945 M Date Time Provider Department 08/16/24 [...] hours as needed. - blood sugar diagnostic (appsplitTOUCH ULTRA TEST) test strip Test blood sugar(s) one times daily. Dx: 250.00. Insulin: No - Lancets (ONE TOUCH DELICA) [facility] lancets Test blood sugar(s) one time daily. 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 Normal [facility] Renal Profileon 08-07-2024 Albumin [Mass/Vol] 3.3 g/dL Normal 3.2-5.0 [facility] Comment on above: Performed By: #### L 500.3600 #### [facility] [address] [place], [address] BUN/CRE 14.3 RATIO Normal 08-04 [facility] Comment on above: Performed By: #### L 500.3600 #### [facility] [address] [place], [address] CA,Total 8.4 mg/dL Low 8.5-10.1 [facility] Comment on above: Performed By: #### L 500.3600 #### [facility] [address] [place], [address] Chloride [Moles/Vol] 114 mmol/L High 98-107 [facility] Comment on above: Performed By: #### L 500.3600 #### [facility] [address] [place], [address] CO2 [Moles/Vol] 25.0 mmol/L Normal 21.0-32.0 [facility] Comment on above: Performed By: #### L 500.3600 #### [facility] [address] [place], [address] Creatinine [Mass/Vol] 2.45 mg/dL High 0.70-1.30 [facility] Comment on above: Result Comment: The validity of the calculated GFR GFRAA in patients over 70 years has not been determined. Clinical correlation is essential. Performed By: #### L 500.3600 #### [facility] [address] [place], [address] EST GFR - AA 33 mL/min Low >60 [facility] Comment on above: Result Comment: Afri can Faroese GFR Calc Performed By: #### L 500.3600 #### [facility] [address] [place], [address] GFR/1.73 sq M.predicted among non-blacks MDRD (S/P/Bld) [Vol rate/Area] 27 mL/min/{1.73_m2} Low >60 [facility] Comment on above: Result Comment: Non- GFR Calc Performed By: #### L 500.3600 #### [facility] [address] [place], [address] Glucose [Mass/Vol] 111 mg/dL High 74-106 [facility] Comment on above: Result Comment: Fast ing Glucose result from 100 to 125 mg/dL suggests IMPAIRED HOMEOSTASIS per A.D.A. criteria. Performed By: #### L 500.3600 #### [facility] [address] [place], [address] Phosphate [Mass/Vol] 2.9 mg/dL Normal 2.5-4.9 [facility] Comment on above: Performed By: #### L 500.3600 #### [facility] [address] [place], [address] Potassium [Moles/Vol] 4.5 mmol/L Normal 3.5-5.1 [facility] Comment on above: Performed By: #### L 500.3600 #### [facility] [address] [place], [address] Sodium [Moles/Vol] 144 mmol/L Normal 136-145 [facility] Comment on above: Performed By: #### L 500.3600 #### [facility] [address] [place], [address] Urea nitrogen [Mass/Vol] 35 mg/dL High 7-18 [facility] Comment on above: Performed By: #### L 500.3600 #### [facility] [address] [place], [address] CNOVon 08-06-2024 CNOV Office Visit (ANNETTE DUDLEY) -------- CAL MITCHELL ([id number]) 1945 M Date Time Provider Department 10/22/24 1:00 PM LAURA IRAHETA AGVASACC During your visit today, we recorded the following information about you: Pulse Blood pressure Weight Height 61/minute 128/68 108.9 kg 1.778 m Laura Iraheta MD 08/06/2024 5:14 PM Signed [facility] , V[facility] Thoracic [place] DEPARTMENT OF VASCULAR SURGERY OUTPATIENT VISIT DATE [...] (more content not included)... Normal [facility] Molly 07-30-2024 LUCIO Telephone (AGCARDPOB ) -------- CAL MITCHELL ([id number]) 1945 M Date Time Provider Department 07/30/24 JOSSELYN MAYER During your visit today, we recorded the following information about you: Josselyn Mayer APRN.CNP 07/30/2024 10:44 AM Signed Attempted to contact patient and his family to update him on the treatment plan. Left voicemail requesting phone call back. QUIQUE Chapa Stacey, RN 07/31/2024 3:54 PM Signed Gustavo calls requesting a return call at [phone]. BENJIE Batres Nichole L, APRN.CNP 08/01/2024 9:58 AM Signed I spoke with Gustavo and communicated recommendations of medical therapy. He reports patient also expressed wanting to continue without any further intervention. Patient and family agreeable to plan. 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 Normal [facility] CNTRTMon 07-30-2024 CNTRTM Treatment Team (AGCARDPOB) -------- CAL MITCHELL ([id number]) 1945 M Date Time Provider Department 07/30/24 JOSSELYN MAYER During your visit today, we recorded the following information about you: Josselyn Mayer APRN.CNP 07/30/2024 10:47 AM Signed MULTI DISCIPLINARY HIGH RISK AVR CARDIAC TEAM Members present: Dr. Malcolm, Dr. Thacker, Dr. Norman, Dr. Escalera, Gian Boyd APRN, CNP, Frank Piña CNP, ALEJANDRA Ma., ALEJANDAR Rice, Niels Cardoza CNP, Tj Lambert, KOURTNEY, Frank Mello CNP Presenting Physician: see members [...] by: Dorothy Ray, BENJIE - Fully Assessed Prescriptions as of 07/30/2024 [...] Insulin: No - Lancets (ONE TOUCH DELICA) [facility] lancets Test blood sugar(s) one time daily. [...] stenosis of unspecified carotid a*10/25/2013 03/26/2024 Frequency [[id number]] 02/11/2016 03/26/2024 BPH (benign prostatic hypertrophy) with [...] Hypertensive kidney disease with stage 3 chroni*01/29/2020 care home (current) use of anticoagulants [Z79.*02/04/2020 Dementia, vascular, mixed, with behavioral dist*08/26/2020 08/14/2023 Obesity, Class II, BMI 35-39.9 [E66.812] 08/15/2022 Aortic valve disorder [I35.9] 08/15/2022 Abnormal electrocardiography [R94.31] (more content not included)... Normal [facility] CNPIndu 07-25-2024 CNPN Telephone (PHAMTE) -------- CAL MITCHELL ([id number]) 1945 M Date Time Provider Department 07/25/24 JIMMY CARRIZALES PHAKAROLYN During your visit today, we recorded the following information about you: Jimmy Carrizales [facility] 07/25/2024 11:50 AM Signed Left voice message asking patient at [phone] (home) or daughter January to call the Anticoagulation Clinic at [phone] re: patient recenly off warfarin for heart cath on 07/23/24. Patient was prescribed Lovenox 100 mg sq Once daily by cardiology. Next Action for Anti coag Management: TM Remote Jimmy Carrizales PharmD., Kamran Jacobo [facility] 07/26/2024 4:30 PM Signed Called and left voice message for daughter January asking her to return call to Pharmacy Anticoagulation Clinic to discuss if Lovenox was started for patient. Josselyn Mayer, [employer] OFFICIAL.Chely Cho, RNYe (2:01 PM) I sent 8 [...] test INR. Kamran Ayon PharmD, Kamran Romero [facility] 07/27/2024 4:00 PM Signed Called daughter again to discuss if Lovenox was started for the patient after heart cath. No answer. Left message to return call to Pharmacy Anticoagulation Clinic. If no call back or INR by Monday, consider starting the discharge process. Kamran Ayon PharmD, Alejandro Kraus [facility] 07/29/2024 5:32 PM Signed Called daughter - no answer. Left voicemail instructing patient to test INR via home meter as soon as possible, and/or call us to provide update re: use of Lovenox. Twin Cole, [facility] 07/30/2024 10:18 AM Signed Called daughter. Left VM to call PAC at [phone]. Please check INR with home meter. Is patient on Lovenox? Ruthie Cuevas, [facility] 07/31/2024 3:51 PM Signed Called and [...] 2.1. Asked I'm to report that to [facility]. Advised him to continue 5mg daily and retest in 2 weeks. Ruthie Cuevsa PharmD, CACP [facility] 08/14/2024 11:55 AM Signed Patient was due to test INR today will continue to monitor for results. Orville Ahn Samantha [facility] 08/21/2024 11:30 AM Signed Cal Mitchell was called and reminded to test INR today or as soon as possible. [employer]VMX for pt's home number - January Quintanilla. Ruthie Cuevas PharmD Allergies As of Date: 07/25/2024 (No Known Allergies) Date Reviewed: 07/23/2024 Reviewed by: Dorothy Ray RN - Fully Assessed Reason for Visit: Anticoagulation [8] Cmt: Patient update Primary Visit Diagnosis:care home (current) use of anticoagulants [Z79.01] Other Visit [...] Insulin: No - Lancets (ONE TOUCH DELICA) [facility] lancets Test blood sugar(s) one time daily. Dx: 250.00. Ins (more content not included)... Normal [facility] CATH DIAGNOSTICon 07-23 CARD CATH DIAGNOSTIC Site Id: [facility] Lab #: DEFAULT Study Date: 07/23/2024 Start Time: End Time: Name Pam Carcamo MD PROC MD 1 Chayo Riley RT [...] (more content not included)... Normal [facility] CTA ABD/PELV W IVCONon 07-23 CTA ABD/PELV W IVCON * * *Final Report* * * DATE OF EXAM: Jul 23 2024 9:29AM [facility] 0311 - CTA ABD/PELV W IVCON [...] Subsequently, non-gated spiral imaging with high-pitch acquisition (Flash-mode) (3 mm slice reconstruction) of the chest, [...] b. Annulus-LM distance: 1.6 cm Annulus angulations: SWEDISH 10 cranial 0 The ascending thoracic aorta [...] as dissection, intramural hematoma, or contained rupture. Storeroom Keeper dimensions of the thoracic aorta are as follows: 3.8 cm at the sinuses of Valsalva (measured efakc-lp-iegxu) 3.0 cm at the sinotubular junction. 3.5 cm in the mid-ascending aorta 3.2 cm at the distal ascending aorta 3.2 cm at the mid-transverse arch 3.3 cm at the proximal descending thoracic aorta 2.9 cm at the diaphragmatic hiatus Storeroom Keeper dimensions of the abdominal aorta are as follows: 2.7 cm at the supra-mesenteric segment 2.5 cm at the mesenteric segment 2.3 cm at the renal segment 2.0 cm at the infrarenal segment 1.9 cm at the aortic bi (more content not included)... Normal [facility] CTA CHEST (GATED) WO/W IVCON on 07-23-2024 CTA CHEST (GATED) WO/W IVCON * * *Final Report* * * DATE OF EXAM: Jul 23 2024 9:29AM [facility] 0126 - CTA CHEST (GATED) WO/W [...] Subsequently, non-gated spiral imaging with high-pitch acquisition (Flash-mode) (3 mm slice reconstruction) of the chest, [...] b. Annulus-LM distance: 1.6 cm Annulus angulations: SWEDISH 10 cranial 0 The ascending thoracic aorta [...] as dissection, intramural hematoma, or contained rupture. Storeroom Keeper dimensions of the thoracic aorta are as follows: 3.8 cm at the sinuses of Valsalva (measured eomuy-ab-qzxwm) 3.0 cm at the sinotubular junction. 3.5 cm in the mid-ascending aorta 3.2 cm at the distal ascending aorta 3.2 cm at the mid-transverse arch 3.3 cm at the proximal descending thoracic aorta 2.9 cm at the diaphragmatic hiatus Storeroom Keeper dimensions of the abdominal aorta are as follows: 2.7 cm at the supra-mesenteric segment 2.5 cm at the mesenteric segment 2.3 cm at the renal segment 2.0 cm at the infrarenal segment 1.9 cm at the a (more content not included)... Normal [facility] HISTORY PHYSICALon HISTORY PHYSICAL HNO ID: [id number] Author: PAM REDDY MD Service: Cardiovascular Surgery [...] 2024 TIME: 9:42 AM Normal [facility] PT panel Coag (PPP)on 2023 INR Coag (PPP) [Relative time] 1.5 {INR} High 0.9-1.3 [facility] Comment on above: Order Comment: Speci men Type: BLOOD SPECIMENOrdering Facility: [facility] Address: [address] [place] [address] Result Comment: Valentina min K Antagonist (VKA) Therapeutic Range: INR 2 to 3 (Target INR of 2.5) Note: For patients treated with VKA drugs, such as warfarin, the [place] [employer] 2012 Guideline recommends [...] GH, et al. Chest 2012, 141:7S-47S Rosa PAGAN et al. [facility] 2017, 70: 252-289 Performed By: #### 3 4528-0 ####[facility] [id number] [place] [address] [place] PT Coag (PPP) [Time] 15.0 s High <13.1 [facility] Comment on above: Order Comment: Speci men Type: BLOOD SPECIMENOrdering Facility: [facility] Address: [address] [place] [address] Performed By: #### 3 4528-0 ####[facility] CAR[facility]LE [facility] [facility] HOSPITALLIAleisha [id number] [address] OF [place] CNPNon 07-15-2024 [facility] -------- CAL MITCHELL ([id number]) 1945 M Date Time Provider Department 07/15/24 GUANAKITO RENO [facility] During your visit today, we [...] Insulin: No - Lancets (ONE TOUCH DELICA) [facility] lancets Test blood sugar(s) one time daily. 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 [facility] CAL MITCHELL ([id number]) 1945 M Date Time Provider Department 07/15/24 [facility]UA[facility]KITO RENO [facility] During your visit today, we recorded [...] Insulin: No - Lancets (ONE TOUCH DELICA) [facility] lancets Test blood sugar(s) one time daily. 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 [Z79.*02/04/2020 Dementia, vascular, [...] Comment: Speci men Type: BLOOD SPECIMENOrdering Facility: [facility] Address: [address] [place] [address] Performed By: #### 5 7021-8 ####[facility] LABCLIA [id number] [place] [address] [place] Basophils/100 WBC (Bld) 1.1 % Normal [facility] Comment on above: Order Comment: Speci men Type: BLOOD SPECIMENOrdering Facility: [facility] Address: [address] [place] [address] Performed By: #### 5 7021-8 ####[facility] LABCLIA [id number] [place] [address] [place] Differential cell count method Nom (Bld) Auto Normal [facility] Comment on above: Order Comment: Speci men Type: BLOOD SPECIMENOrdering Facility: [facility] Address: [address] [place] [address] Performed By: #### 5 7021-8 ####[facility] LABCLIA [id number] [place] [address] [place] Eosinophils (Bld) [#/Vol] 0.40 10*3/uL Normal <0.46 [facility] Comment on above: Order Comment: Speci men Type: BLOOD SPECIMENOrdering Facility: [facility] Address: [address] [place] [address] Performed By: #### 5 7021-8 ####[facility] LABCLIA [id number] [place] [address] [place] Eosinophils/100 WBC (Bld) 6.3 % Normal [facility] Comment on above: Order Comment: Speci men Type: BLOOD SPECIMENOrdering Facility: [facility] Address: [address] [place] [address] Performed By: #### 5 7021-8 ####[facility] LABCLIA [id number] [place] [address] [place] Erythrocyte distribution width (RBC) [Ratio] 14.6 % Normal 11.5-15.0 [facility] Comment on above: Order Comment: Speci men Type: BLOOD SPECIMENOrdering Facility: [facility] Address: [address] [place] [address] Performed By: #### 5 7021-8 ####[facility] LABIA [id number] [place] [address] [place] Hematocrit (Bld) [Volume fraction] 34.7 % Low 39.0-51.0 [facility] Comment on above: Order Comment: Speci men Type: BLOOD SPECIMENOrdering Facility: [facility] Address: [address] [place] [address] Performed By: #### 5 7021-8 ####[facility] LABCLIA [id number] [place] [address] [place] Hemoglobin (Bld) [Mass/Vol] 10.3 g/dL Low 13.0-17.0 [facility] Comment on above: Order Comment: Speci men Type: BLOOD SPECIMENOrdering Facility: [facility] Address: [address] [place] [address] Performed By: #### 5 7021-8 ####[facility] LABCLIA [id number] [place] [address] [place] Immature granulocytes (Bld) [#/Vol] 0.03 10*3/uL Normal <0.10 [facility] Comment on above: Order Comment: Speci men Type: BLOOD SPECIMENOrdering Facility: [facility] Address: [address] [place] [address] Performed By: #### 5 7021-8 ####[facility] LABCLIA [id number] [place] [address] [place] Immature granulocytes/100 WBC (Bld) 0.5 % Normal [facility] Comment on above: Order Comment: Speci men Type: BLOOD SPECIMENOrdering Facility: [facility] Address: [address] [place] [address] Performed By: #### 5 7021-8 ####[facility] LABCLIA [id number] [place] [address] [place] Lymphocytes (Bld) [#/Vol] 1.30 10*3/uL Normal 1.00-4.00 [facility] Comment on above: Order Comment: Speci men Type: BLOOD SPECIMENOrdering Facility: [facility] Address: [address] [place] [address] Performed By: #### 5 7021-8 ####[facility] LABCLIA [id number] [place] [address] [place] Lymphocytes/100 WBC (Bld) 20.3 % Normal [facility] Comment on above: Order Comment: Speci men Type: BLOOD SPECIMENOrdering Facility: [facility] Address: [address] [place] [address] Performed By: #### 5 7021-8 ####[facility] LABCLIA [id number] [place] [address] [place] MCH (RBC) [Entitic mass] 30.5 pg Normal 26.0-34.0 [facility] Comment on above: Order Comment: Speci men Type: BLOOD SPECIMENOrdering Facility: [facility] Address: [address] [place] [address] Performed By: #### 5 7021-8 ####[facility] LABCLIA [id number] [place] [address] [place] MCHC (RBC) [Mass/Vol] 29.7 g/dL Low 30.5-36.0 [facility] Comment on above: Order Comment: Speci men Type: BLOOD SPECIMENOrdering Facility: [facility] Address: [address] [place] [address] Performed By: #### 5 7021-8 ####[facility] LABCLIA [id number] [place] [address] [place] MCV (RBC) [Entitic vol] 102.7 fL High 80.0-100.0 C [facility] Comment on above: Order Comment: Speci men Type: BLOOD SPECIMENOrdering Facility: [facility] Address: [address] [place] [address] Performed By: #### 5 7021-8 ####[facility] LABIA [id number] [place] [address] [place] Monocytes (Bld) [#/Vol] 0.60 10*3/uL Normal <0.87 [facility] Comment on above: Order Comment: Speci men Type: BLOOD SPECIMENOrdering Facility: [facility] Address: [address] [place] [address] Performed By: #### 5 7021-8 ####[facility] LABCLIA [id number] [place] [address] [place] Monocytes/100 WBC (Bld) 9.4 % Normal C [facility] Comment on above: Order Comment: Speci men Type: BLOOD SPECIMENOrdering Facility: [facility] Address: [address] [place] [address] Performed By: #### 5 7021-8 ####[facility] LABCLIA [id number] [place] [address] [place] Neutrophils (Bld) [#/Vol] 4.00 10*3/uL Normal 1.45-7.50 [facility] Comment on above: Order Comment: Speci men Type: BLOOD SPECIMENOrdering Facility: [facility] Address: [address] [place] [address] Performed By: #### 5 7021-8 ####[facility] LABCLIA [id number] [place] [address] [place] Neutrophils/100 WBC (Bld) 62.4 % Normal [facility] Comment on above: Order Comment: Speci men Type: BLOOD SPECIMENOrdering Facility: [facility] Address: [address] [place] [address] Performed By: #### 5 7021-8 ####[facility] LABCLIA [id number] [place] [address] [place] Nucleated RBC (Bld) [#/Vol] 10*3/uL Normal <0.01 [facility] Comment on above: Order Comment: Speci men Type: BLOOD SPECIMENOrdering Facility: [facility] Address: [address] [place] [address] Performed By: #### 5 7021-8 ####[facility] LABCLIA [id number] [place] [address] [place] Nucleated RBC/100 WBC (Bld) [Ratio] 0.0 /100 WBC Normal [facility] Comment on above: Order Comment: Speci men Type: BLOOD SPECIMENOrdering Facility: [facility] Address: [address] [place] [address] Performed By: #### 5 7021-8 ####[facility] LABCLIA [id number] [place] [address] [place] Platelet mean volume (Bld) [Entitic vol] 10.5 fL Normal 9.0-12.7 [facility] Comment on above: Order Comment: Speci men Type: BLOOD SPECIMENOrdering Facility: [facility] Address: [address] [place] [address] Performed By: #### 5 7021-8 ####[facility] LABIA [id number] [place] [address] [place] Platelets (Bld) [#/Vol] 190 10*3/uL Normal 150-400 [facility] Comment on above: Order Comment: Speci men Type: BLOOD SPECIMENOrdering Facility: [facility] Address: [address] [place] [address] Performed By: #### 5 7021-8 ####[facility] LABIA [id number] [place] [address] [place] RBC (Bld) [#/Vol] 3.38 10*6/uL Low 4.20-6.00 [facility] Comment on above: Order Comment: Speci men Type: BLOOD SPECIMENOrdering Facility: [facility] Address: [address] [place] [address] Performed By: #### 5 7021-8 ####[facility] LABIA [id number] [place] [address] [place] WBC (Bld) [#/Vol] 6.40 10*3/uL Normal 3.70-11.00 [facility] Comment on above: Order Comment: Speci men Type: BLOOD SPECIMENOrdering Facility: [facility] Address: [address] [place] [address] Performed By: #### 5 7021-8 ####[facility] LABIA [id number] [place] [address] [place] CNOVon 07-12-2024 CNOV Office Visit (FAMPWS ) -------- CAL MITCHELL ([id number]) 1945 M Date Time Provider Department 07/12/24 [...] or worsening shortness of breath. Currently wearing [employer] heart monitor. Placed yesterday. Follows with Cardiology. Dr. Reddy. Continues on Warfarin. Last INR 07/04/24 2.2 done remotely. No bleeding or bruising concerns. Per patient his memory is unchanged. According to son-in-law whom is with him at appointment states patient has zone out periods. Sometimes has hard time trying to [...] 250.00. Insulin: No Lancets (ONE TOUCH DELICA) [facility] [place]ancets Test blood sugar(s) one time daily. [...] Use Smoking (more content not included)... Normal [facility] Office Visit (FAMPWS ) -------- CAL MITCHELL ([id number]) 1945 M Date Time Provider Department 07/12/24 [facility] During your visit today, we recorded [...] Insulin: No - Lancets (ONE TOUCH DELICA) [facility] [place]ancets Test blood sugar(s) one time daily. [...] stenosis of unspecified carotid a*10/25/2013 03/26/2024 Frequency [[id number]] 02/11/2016 03/26/2024 BPH (benign prostatic hypertrophy) with [...] Hypertensive kidney disease with stage 3 chroni*01/29/2020 care home (current) use of anticoagulants [Z79.*02/04/2020 Dementia, vascular, [...] Encounter Status:Closed by GUANAKITO RENO on 07/15/24 [facility] 07-12-2024 CNPN Telephone (INTMWS) -------- PAULACAL Lua ([id number]) 1945 M Date Time Provider Department 07/12/24 GUANAKITO RENO INTMWS During your visit today, we recorded the following information about you: JacobDeanna pizarrory 07/12/2024 12:40 PM Signed Attempted to find sooner apt time for patients nephrology apt, no sooner times within [facility] facilities that are faster than patients [facility] apt. Guanakito Reno MD 07/12/2024 12:49 PM [...] hours as needed. - blood sugar diagnostic ([employer] ULTRA TEST) test strip Test blood sugar(s) one times daily. Dx: 250.00. Insulin: No - Lancets (ONE TOUCH DELICA) [facility] [place]anc[place] Test blood sugar(s) one time daily. 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 Comment on above: Order Comment: Speci men Type: BLOOD SPECIMENOrdering Facility: [facility] Address: [address] [place] [address] Performed By: #### L IPNF, 74389-7, ####[facility] LABCLIA [id number] [place] [address] [place] ALT [Catalytic activity/Vol] 23 U/L Normal 10-54 [facility] Comment on above: Order Comment: Speci men Type: BLOOD SPECIMENOrdering Facility: [facility] Address: [address] [place] [address] Performed By: #### L IPNF, 82146-6, ####[facility] LABCLIA [id number] [place] [address] [place] Anion gap [Moles/Vol] 11 mmol/L Normal 8-15 [facility] Comment on above: Order Comment: Speci men Type: BLOOD SPECIMENOrdering Facility: [facility] Address: [address] [place] [address] Performed By: #### L IPNF, 46029-6, ####[facility] LABCLIA [id number] [place] [address] [place] AST [Catalytic activity/Vol] 25 U/L Normal 14-40 [facility] Comment on above: Order Comment: Speci men Type: BLOOD SPECIMENOrdering Facility: [facility] Address: [address] [place] [address] Performed By: #### L IPNF, 80972-3, 68495-4 ####[facility] LABCLIA [id number] [place] [address] [place] Bilirubin [Mass/Vol] 0.4 mg/dL Normal 0.2-1.3 [facility] Comment on above: Order Comment: Speci men Type: BLOOD SPECIMENOrdering Facility: [facility] Address: [address] [place] [address] Performed By: #### L IPNF, 42059-0, 45413-4 ####[facility] LABCLIA [id number] [place] [address] [place] Calcium [Mass/Vol] 8.2 mg/dL Low 8.5-10.2 [facility] Comment on above: Order Comment: Speci men Type: BLOOD SPECIMENOrdering Facility: [facility] Address: [address] [place] [address] Performed By: #### L IPNF, 82140-0, ####[facility] LABCLIA [id number] [place] [address] [place] Chloride [Moles/Vol] 110 mmol/L High 98-107 [facility] Comment on above: Order Comment: Speci men Type: BLOOD SPECIMENOrdering Facility: [facility] Address: [address] [place] [address] Performed By: #### L IPNF, 07627-3, ####[facility] LABCLIA [id number] [place] [address] [place] CO2 [Moles/Vol] 22 mmol/L Normal 22-30 [facility] Comment on above: Order Comment: Speci men Type: BLOOD SPECIMENOrdering Facility: [facility] Address: [address] [place] [address] Performed By: #### L IPNF, 49094-5, 61222-8 ####[facility] LABCLIA [id number] [place] [address] [place] Creatinine [Mass/Vol] 2.40 mg/dL High 0.73-1.22 [facility] Comment on above: Order Comment: Speci men Type: BLOOD SPECIMENOrdering Facility: [facility] Address: [address] [place] [address] Performed By: #### L IPNF, 91795-9, 63083-7 ####[facility] LABIA [id number] [place] [address] [place] Creatinine and Glomerular filtration rate.predicted panel (S/P/Bld) 26 mL/min/1.73m??? Low >=60 [facility] Comment on above: Order Comment: Marcelle shultz Type: BLOOD SPECIMENOrdering Facility: [facility] Address: [address] [place] [address] Result Comment: Lina mated Glomerular Filtration Rate [...] actual GFR. Performed By: #### L IPNF, 80902-1, 03408-1 ####[facility] LABIA [id number] [place] [id number] [place] Glucose [Mass/Vol] 100 mg/dL High 74-99 [facility] Comment on above: Order Comment: Speci men Type: BLOOD SPECIMENOrdering Facility: [facility] Address: [address] [place] [address] Result Comment: The [place] Diabetes Association (ADA) provides guidance for cutoff [...] Standards of Medical Care in Diabetes 2016, [place] [employer]. Diabetes Care. 2016.39(Suppl 1). Performed By: #### L IPNF, 42585-8, ####[facility] LABCLIA [id number] [place] [address] [place] Potassium [Moles/Vol] 4.6 mmol/L Normal 3.7-5.1 [facility] Comment on above: Order Comment: Speci men Type: BLOOD SPECIMENOrdering Facility: [facility] Address: [address] [place] [address] Performed By: #### L IPNF, 20221-5, ####[facility] LABIA [id number] [place] [address] [place] Protein [Mass/Vol] 6.6 g/dL Normal 6.3-8.0 [facility] Comment on above: Order Comment: Speci men Type: BLOOD SPECIMENOrdering Facility: [facility] Address: [address] [place] [address] Performed By: #### L IPNF, 00040-5, ####[facility] LABCLIA [id number] [place] [address] [place] Sodium [Moles/Vol] 143 mmol/L Normal 136-144 [facility] Comment on above: Order Comment: Speci men Type: BLOOD SPECIMENOrdering Facility: [facility] Address: [address] [place] [address] Performed By: #### L IPNF, 35349-3, ####[facility] LABCLIA [id number] [place] [address] [place] Urea nitrogen [Mass/Vol] 37 mg/dL High 9-24 [facility] Comment on above: Order Comment: Marcelle shultz Type: BLOOD SPECIMENOrdering Facility: [facility] Address: [address] [place] [address] Performed By: #### L IPNF, 13923-3, 08660-7 ####[facility] LABCLIA [id number] [place] [address] [place] HbA1c (Bld)on 07-12-2024 Average glucose Estimated from glycated hemoglobin (Bld) [Mass/Vol] 134 mg/dL Normal [facility] Comment on above: Order Comment: Marcelle shultz Type: BLOOD SPECIMENOrdering Facility: [facility] Address: [address] [place] [address] Result Comment: eAG: (Estimated average glucose) is a calculated value from HgbA1c and is union representative of the average blood glucose level in the last 2-3 month period. Performed By: #### 5 5454-3 ####[facility] LABCLIA [id number] [place] [address] [place] HbA1c (Bld) [Mass fraction] 6.3 % High 4.3-5.6 [facility] Comment on above: Order Comment: Marcelle shultz Type: BLOOD SPECIMENOrdering Facility: [facility] Address: [address] [place] [address] Result Comment: Amer [place] Diabetes Association guidelines indicate that patients with HgbA1c in the range 5.7-6.4% are at increased risk for development of diabetes, and intervention by lifestyle modification may be beneficial. HgbA1c greater or equal to 6.5% is considered diagnostic of diabetes. Performed By: #### 5 5454-3 ####[facility] LABCLIA [id number] [place] [address] [place] LIPID PANEL, NONFASTINGon Cholesterol [Mass/Vol] 156 mg/dL Normal <200 [facility] Comment on above: Order Comment: Speci men Type: BLOOD SPECIMENOrdering Facility: [facility] Address: [address] [place] [address] Result Comment: <200 mg/dL, Desirable 200-239 mg/dL, Borderline high >239 mg/dL, High Performed By: #### L IPNF, 07188-6, 86681-5 ####[facility] LABCLIA [id number] [place] [address] [place] HDL CHOLESTEROL, NF 44 mg/dL Normal >39 [facility] Comment on above: Order Comment: Speci men Type: BLOOD SPECIMENOrdering Facility: [facility] Address: [address] [place] [address] Result Comment: 40-5 9 mg/dL, Acceptable >59 mg/dL, High: Negative risk factor for coronary heart disease <40 mg/dL, Low: Positive risk factor for coronary heart disease Performed By: #### L IPNF, 30800-7, 56502-6 ####[facility] LABCLIA [id number] [address] OF [facility] LDL CHOLESTEROL, NF 93 mg/dL Normal <100 [facility] Comment on above: Order Comment: Speci men Type: BLOOD SPECIMENOrdering Facility: [facility] Address: [address] [place] [address] Result Comment: <100 mg/dL, Optimal 100-129 mg/dL, Near optimal/above optimal 130-159 mg/dL, Borderline high 160-189 mg/dL, High >189 mg/dL, Very high Secondary prevention optimal LDL Cholesterol levels are recommended to be < 70 mg/dL Performed By: #### L IPNF, 32237-3, 66266-9 ####[facility] LABCLIA [id number] [address] [place] LDL/HDL RATIO, NF 2.11 mg/dL Normal <2.54 [facility] Comment on above: Order Comment: Speci men Type: BLOOD SPECIMENOrdering Facility: [facility] Address: [address] [place], [place] [id number] Result Comment: Scot soto: 1. National Cholesterol Education Program ATP III Guideline At-A-Glance Quick Desk Reference: National Heart, Lung, and Blood [place]. National Institutes of Health. 2001: NIH Publication No. 01-3305. 2. An International Atherosclerosis Society position paper: global recommendations for the management of dyslipidemia: executive summary, Atherosclerosis. 2014: 232(2):410-413. Performed By: #### L IPNF, 38304-3, 19285-6 ####[facility] LABCLIA [id number] [place] [address] [place] NON HDL CHOL, NF 112 mg/dL Normal <130 [facility] Comment on above: Order Comment: Speci men Type: BLOOD SPECIMENOrdering Facility: [facility] Address: [address] [place] [address] Result Comment: <130 mg/dL, Optimal 130-159 mg/dL, Near optimal/above optimal 160-189 mg/dL, Borderline high 190-219 mg/dL, High >219 mg/dL, Very high Secondary prevention optimal non HDL Cholesterol levels are recommended to be <100 mg/dL Performed By: #### L IPNF, 97012-6, 35902-5 ####[facility] LABCLIA [id number] [place] [address] [place] T CHOL/HDL RATIO NF 3.55 mg/dL Normal <5.10 [facility] Comment on above: Order Comment: Speci men Type: BLOOD SPECIMENOrdering Facility: [facility] Address: [address] [place] [address] Performed By: #### L IPNF, 28989-3, 28394-7 ####[facility] LABCLIA [id number] [place] [address] [place] TRIGLYCERIDES, NF 97 mg/dL Normal <150 [facility] Comment on above: Order Comment: Speci men Type: BLOOD SPECIMENOrdering Facility: [facility] Address: [address] [place] [address] Result Comment: <150 mg/dL, Normal 150-199 mg/dL, Borderline high 200-499 mg/dL, High >499 mg/dL, Very high Performed By: #### L IPRENATO, 98112-2, 21892-3 ####[facility] LABCLIA [id number] [place] [address] [place] VLDL CHOLESTEROL, NF 19 mg/dL Normal <30 [facility] Comment on above: Order Comment: Speci lexii Type: BLOOD SPECIMENOrdering Facility: [facility] Address: [address] [place] [address] Performed By: #### L WAYLON, 07975-1, 65802-6 ####[facility] LABCLIA [id number] [address] [place] NT-proBNP [facility] 07-12 Natriuretic peptide.B prohormone N-Terminal [Mass/Vol] 314 pg/mL Normal <450 [facility] Comment on above: Order Comment: Marcelle shultz Type: BLOOD SPECIMENOrdering Facility: [facility] Address: [address] [place] [address] Performed By: #### L WAYLON, 23690-5, 78720-8 ####[facility] LABIA [id number] [place] [address] [place] PT panel Coag (PPP)on 2023 INR Coag (PPP) [Relative time] 2.8 {INR} High 0.9-1.3 [facility] Comment on above: Order Comment: Marcelle shultz Type: BLOOD SPECIMENOrdering Facility: [facility] Address: [address] [place] [address] Result Comment: Valentina min K Antagonist (VKA) Therapeutic Range: INR 2 to 3 (Target INR of 2.5) Note: For patients treated with VKA drugs, such as warfarin, the [place] [employer] 2012 Guideline recommends [...] Chest 2012, 141:7S-47S Rosa RA, et al. [facility] 2017, 70: 252-289 Performed By: #### 3 4528-0 ####[facility] [id number] [place] [address] [place] PT Coag (PPP) [Time] 27.0 s High 9.7-13.0 [facility] Comment on above: Order Comment: Speci men Type: BLOOD SPECIMENOrdering Facility: [facility] Address: [address] [place] [address] Performed By: #### 3 4528-0 ####[facility] [id number] [address] [place] CNOVon 07-10-2024 CNOV Office Visit (AGTAVR ) -------- CAL MITCHELL ([id number]) 1945 M Date Time Provider Department 07/10/24 [...] 10, 2024 TIME: 8:06 AM PAGER/CONTACT #: [phone] Laurenramesh Josselynmegha Lua APRN.[facility] 07/10/2024 9:31 AM Addendum Today, you met [...] your doctor might order an echocardiogram (or echo). This test uses sound waves to create [...] order a test called cardiac catheterization, or cardiac cath. For this, the provider puts a thin [...] This part of the test is called coronary angiography. Your provider might order a test called [...] (more content not included)... Normal [facility] CNOV Office Visit (AGTAVR ) -------- CAL MITCHELL ([id number]) 1945 M Date Time Provider Department 07/10/24 8:30 AM CAL THACKER During your visit today, we recorded the [...] 10, 2024 TIME: 8:13 AM PAGER/CONTACT #: [phone] Cal Thacker MD 07/10/2024 9:32 AM Signed PRIMARY CARE PHYSICIAN: [place] [address] Subjective Chief Complaint Patient presents with: Aortic [...] Examination Vitals:BP 120/70 Pulse 94 Ht 5' 10[Patient reports[ (1.78m) Wt 240 lb 6.4 oz [...] (more content not included)... Normal [facility] ECG B/O W INTERP (MED OFFICE )on 07-10-2024 Sinus rhythm with fi rst degree heart block [facility] NURSING PROGon 07-10-2024 NURSING PROG HNO ID: [id number] Author: JUDY DÍAZ, Director Of Recreation Therapy Service: ? Author Type: Director Of Recreation Therapy Type: Nursing Progress Note Filed: 07/10/2024 10:29 Note Text: Applied 14 day extended wear EKG patch. Pt verbalized understanding of monitor use / diary. 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 Jimmy Carrizales [facility] 07/18/2024 2:29 PM Signed Patient was due to test INR today. Will continue to monitor for results. Follow up in one week if no results received. Jimmy Carrizales [facility] Allergies As of Date: 07/05/2024 (No Known Allergies) Date Reviewed: 06/06/2024 Reviewed by: Carolina Landeros APRN.COURT ORDERLY - Fully Assessed Reason for Visit: Anticoagulation Telephone Fu [148] Primary Visit Diagnosis:care home (current) use of anticoagulants [Z79.01] Other Visit [...] OTHER ABNORM (more content not included)... Normal [facility] -------- CAL MITCHELL ([id number]) 1945 M Date Time Provider Department 06/27/24 GUANAKITO RENO [facility] During your visit today, we recorded the following information about you: Allergies As of Date: 2024 (No Known Allergies) Date Reviewed: 06/06/2024 Reviewed by: Carolina Landeros APRN.COURT ORDERLY - Fully Assessed Primary Visit Diagnosis:Screen for colon cancer [Z12.11] Order(s):IMMUNOCHEMICAL FECAL OCCULT BLOOD TEST [SQIFOBT] Order #: [id number]. #:[id number] Prescriptions as of 2024 - atorvastatin (LIPITOR) [...] Insulin: No - Lancets (ONE TOUCH DELICA) [facility] lancets Test blood sugar(s) one time daily. [...] stenosis of unspecified carotid a*10/25/2013 03/26/2024 Frequency [[id number]] 02/11/2016 03/26/2024 BPH (benign prostatic hypertrophy) with [...] Hypertensive kidney disease with stage 3 chroni*01/29/2020 care home (current) use of anticoagulants [Z79.*02/04/2020 Dementia, vascular, [...] Comment: Speci men Type: STOOL SPECIMENOrdering Facility: [facility] Address: [address] [place] [address] Performed By: #### 2 [id number] ####[facility] LABCLIA [id number] [facility] [id number] [facility] CNPIndu 06-18-2024 CNPN Telephone ([place]) -------- CAL MITCHELL ([id number]) 1945 M Date Time Provider Department 06/18/24 JIMMY CARRIZALES During your visit today, we recorded the following information about you: [facility] 06/18/2024 8:42 AM Signed [facility] Ambulatory Pharmacy Anticoagulation Clinic Anticoagulation Episode Summary Anticoagulation Care Providers Provider Role Specialty Phone number Guanakito Reno MD [facility] Family Medicine [phone] Cal Mitchell is a 78 year old [...] 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: care home (current) use of anticoagulants Paroxysmal atrial fibrillation [...] Pharmacy Anticoagulation Clinic Pharmacy Anticoagulation Clinic Pager: [phone]. Jimmy Carrizales RPh 07/02/2024 5:21 PM Signed Patient was due to test INR today. Will continue to monitor for results. Follow up in one week if no results received. Jimmy Carrizales RPh Allergies As of Date: 06/18/2024 (No Known Allergies) Date Reviewed: 06/06/2024 Reviewed by: Carolina Landeros APRN.COURT ORDERLY - Fully Assessed Reason for Visit: Anticoagulation Telephone Fu [148] Cmt: Home INR Primary Visit Diagnosis:care home (current) use of anticoagulants [Z79.01] Other Visit [...] Insulin: No - Lancets (ONE TOUCH DELICA) [facility] lancets Test blood sugar(s) one time daily. [...] CNOV Office Visit (FAMPWS ) -------- PAULACAL Lua ([id number]) 1945 M Date Time Provider Department 06/06/24 11:20 AM CAORLINA LANDEROS [facility] During your visit today, we recorded the following information about you: Pulse Respiration Blood pressure Weight 71/minute 18/minute 144/68 110.7 kg Carolina Landeros APRN.CNP 06/06/2024 12:14 PM Signed This is a [...] 250.00. Insulin: No Lancets (ONE TOUCH DELICA) [facility] lancets Test blood sugar(s) one time daily. [...] [facility] CNOVon 06-05-2024 CNOV Office Visit (UCWSTR ) -------- CAL MITCHELL ([id number]) 1945 M Date Time Provider Department 06/05/24 5:00 PM VALERIE GRUBER During your visit today, we recorded the following information about you: Temperature Pulse Respiration Blood pressure 96.6 degrees 75/minute 19/minute 140/70 Weight 110.7 kg Valerie Gruber APRN.CNP 06/05/2024 5:16 PM Signed This note was created using NoteWriter. Subjective Cal Mitchell is a 78 year old male. 78 year old male with PMH HTN, hyperlipidemia, afib, PAD, CKD, DM presents for medical complaints. Acute onset of symptoms was over a week ago Patients daughter had sent in a [employer] message on 06/03/24. At that time she expressed his bilateral leg swelling and inquiring into whether or not medicines need adjusted. On 06/04/24 Corrina Lennon asked for patient to be seen in office this week. Nursing staff reached out today at 4 pm. They wanted an appointment this evening, but none available. Patient presents with his son in law they told me to come to express care Son in law states that his medicines I forget which one were changed. He is requesting that The history is provided by the patient. No parts interpreter was used. Edema This is a new [...] CNPN Telephone (AGCARDPOB ) -------- CAL MITCHELL ([id number]) 1945 M Date Time Provider Department 05/20/24 [...] PM Signed ----- Message from Josselyn Mayer APRN.COURT ORDERLY sent at 05/20/2024 2:28 PM EDT ----- Creatinine 2.3. Per chart review he was asymptomatic but had an episode of syncope. Do you want work up first or just valve clinic? Josselyn ----- Message ----- From: Pam Reddy MD Sent: 05/18/2024 8:44 AM EDT To: Chely Nicolas RN; Josselyn Mayer APRN.COURT ORDERLY Aortic stenosis need to establish care at the valve clinic Chely Zeng RN 05/23/2024 8:26 AM Signed Pam Reddy MD You; Josselyn Mayer, [employer] OFFICIAL.CNP15 hours ago (4:42 PM) Let's see at [...] Insulin: No - [facility]CH DEL[facility] blood sugar(s) one time [...] stenosis of unspecified carotid a*10/25/2013 03/26/2024 Frequency [HEC1335] 02/11/2016 03/26/2024 BPH (benign prostatic hypertrophy) with [...] Hypertensive kidney disease with stage 3 chroni*01/29/2020 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 [facility] KOURTNEYN Telephone (AGCARDPOB ) -------- CAL MITCHELL ([id number]) 1945 M Date Time Provider Department 05/20/24 JOSSELYN MAYER During your visit today, we recorded the following information about you: Josselyn Mayer APRN.COURT ORDERLY 05/20/2024 2:34 PM Signed Attempted to call [...] with Nephrologists. Thank you, Josselyn Mayer APRN.KOURTNEY Hardin Claritza Smith 05/21/2024 3:11 PM Signed Patient's son in law called in to confirm appointment with Dr. Reddy. Thanks Claritza Hardin Allergies As of Date: 05/20/2024 (No Known Allergies) Date Reviewed: 05/06/2024 Reviewed by: Twin Garcia LPN - Fully Assessed Reason for Visit: Administrative Tech - Other [3602] Prescriptions as of 07/22/2024 [...] Insulin: No - Lancets (ONE TOUCH DELICA) [facility] lancets Test blood sugar(s) one time daily. 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 (more content not included)... Normal [facility] CNPNon 05-17-2024 CNPN Telephone (PHARSO) -------- CAL MITCHELL ([id number]) 1945 M Date Time Provider Department 05/17/24 DOROTHY SAINZ During your visit today, we recorded the following information about you: Dorothy Sainz bobbi 05/17/2024 9:25 AM Signed [facility] Ambulatory Pharmacy Anticoagulation Clinic Anticoagulation Episode Summary Anticoagulation Care Providers Provider Role Specialty Phone number Guanakito Reno MD 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 Jimmy Carrizales [facility] 05/30/2024 3:39 PM Signed Patient was due to test INR today. Will continue to monitor for results. Follow up in one week if no results received. Jimmy Carrizales [facility] Jimmy Carrizales [facility] 06/06/2024 2:34 PM Signed Cal Mitchell was called, lvmx and reminded to test INR today or as soon as possible. Jimmy Carrizales [facility] Jimmy Carrizales [facility] 06/13/2024 11:42 AM Signed Cal Mitchell was called, lvmx and reminded to test INR today or as soon as possible. Jimmy Carrizales [facility] Daniel (Motorcycle Assembler)Ashley 06/13/2024 5:04 PM Signed DISCHARGE No return call from patient. Letter sent. FINAL ATTEMPT letter sent at this time. If no response from patient within 3 weeks, patient will be discharged from PAC at that time. Will also route to referring MD as FYI and to see if office can assist in reaching patient. Ashley Sanchez CPhT (Technical Support Intern) Pharmacy Anticoagulation Clinic' Allergies As of Date: 05/17/2024 (No Known Allergies) Date Reviewed: 05/06/2024 Reviewed by: Twin Garcia LPN - Fully Assessed Reason for Visit: Anticoagulation Telephone Fu [148] Primary Visit Diagnosis:care home (current) use of anticoagulants [Z79.01] Other Visit [...] hours as needed. - blood sugar diagnostic (appsplitTOUCH ULTRA TEST) test strip Test blood sugar(s) one times daily. Dx: 250.00. Insulin: No - Lancets (ONE TOUCH DELICA) [facility] lancets Test blood sugar(s) one time daily. Dx: 250.00. Insulin: No Problem List As Of Date 05/17/2024 Noted Resolved Hyperlipidemia, mixed [E78.2] Essential hypertension [I10] Peripheral arterial disease (HCC) [I73.9] Other symptoms involving cardiovascular system * 07/20/2016 ACTI (more content not included)... Normal [facility] Kidney - bilateral and Ur inary bladderon 05-02-2024 IMPRESSION: No hydronephrosis. Cholelithiasis. Curator Herbarium: MAC Transcribe Date/Time: May 02 2024 7:17P Dictated by : TIN COTTER DO This examination was interpreted and the report reviewed and electronically signed by: TIN COTTER DO on May 02 2024 7:19PM [facility] DIVISION OF RADIOLOGY * * *Final Report* [...] Incidentally noted cholelithiasis. DIVISION OF RADIOLOGY Provider, [facility] Hammad [facility] - 05/02/2024 * * *Final Report* * [...] noted cholelithiasis. IMPRESSION IMPRESSION: No hydronephrosis. Cholelithiasis. Curator Herbarium: MAC Transcribe Date/Time: May 02 2024 7:17P Dictated by : TIN COTTER DO This examination was interpreted and the report reviewed and electronically signed by: TIN COTTER DO on May 02 2024 7:19PM [facility] Radiology Study observation (narrative) Alexx mckinnon [facility] US Kidney - bilateral and Ur inary bladderOrdered By: Ccf Provider on 05-02-2024 [facility] NT PRO BNPon 03-26-2024 Natriuretic peptide.B prohormone N-Terminal [Mass/Vol] 501 pg/mL High NINF - 450 pg/mL [facility] Natriuretic peptide.B prohor jodie N-Terminal [Mass/Vol]on 03-26-2024 Interpretation and review of laboratory results Abnormal [facility] THYROID STIMULATING HORMONEo n 03-26-2024 TSH Qn 2.950 m[IU]/L [facility] TSH Qnon 03-26-2024 Interpretation and review of laboratory results Normal [facility] CBC panel Auto (Bld)on 03-25 Erythrocyte distribution width (RBC) [Ratio] 14.9 % 11.5 - 15.0 % [facility] Hematocrit (Bld) [Volume fraction] 31.8 % Low 39.0 - 51.0 % [facility] Hemoglobin (Bld) [Mass/Vol] 9.6 g/dL Low 13.0 - 17.0 g/dL [facility] Interpretation and review of laboratory results Abnormal [facility] MCH (RBC) [Entitic mass] 30.9 pg 26.0 - 34.0 pg [facility] MCHC (RBC) [Mass/Vol] 30.2 g/dL Low 30.5 - 36.0 g/dL [facility] MCV (RBC) [Entitic vol] 102.3 fL High 80.0 - 100.0 fL [facility] Nucleated RBC (Bld) [#/Vol] NINF [facility] Platelet mean volume (Bld) [Entitic vol] 9.8 fL 9.0 - 12.7 fL [facility] Platelets (Bld) [#/Vol] 158 10*3/uL [facility] RBC (Bld) [#/Vol] 3.11 10*6/uL Low 4.20 - 6.0 0 m/uL [facility] WBC (Bld) [#/Vol] 4.72 10*3/uL [facility] Comprehensive metabolic 2000 panelOrdered By: Haley Marie on 03-25-2024 Albumin [Mass/Vol] 3.7 g/dL Low 3.9 - 4.9 g/dL [facility] ALP [Catalytic activity/Vol] 109 U/L 38 - 113 U/L [facility] ALT [Catalytic activity/Vol] 15 U/L 10 - 54 U/L [facility] Anion gap [Moles/Vol] 12 mmol/L 8 - 15 mmol/L [facility] AST [Catalytic activity/Vol] 19 U/L 14 - 40 U/L [facility] Bilirubin [Mass/Vol] 0.3 mg/dL 0.2 - 1 .3 mg/dL [facility] Calcium [Mass/Vol] 8.6 mg/dL 8.5 - 10. 2 mg/dL [facility] Chloride [Moles/Vol] 113 mmol/L High 98 - 10 7 mmol/L [facility] CO2 [Moles/Vol] 16 mmol/L Low 22 - 30 mmol/L [facility] Creatinine [Mass/Vol] 2.48 mg/dL High 0.73 - 1.22 mg/dL [facility] GFR/1.73 sq M.predicted among non-blacks MDRD (S/P/Bld) [Vol rate/Area] 26 mL/min/{1.73_m2} Low - PINF [facility] Comment on above: Estimated Glomerular Filtration [...] [Mass/Vol] 99 mg/dL 74 - 99 mg/dL [facility] Comment on above: The [place] Diab[employer] Association (ADA) provides guidance for [...] Standards of Medical Care in Diabetes 2016, [place] [employer]. Diabetes Care. 2016.39(Suppl 1). Interpretation and review of laboratory results Abnormal [facility] Potassium [Moles/Vol] 4.4 mmol/L 3.7 - 5.1 mmol/L [facility] Protein [Mass/Vol] 6.4 g/dL 6.3 - 8.0 g/dL [facility] Sodium [Moles/Vol] 141 mmol/L 136 - 144 mmol/L [facility] Urea nitrogen [Mass/Vol] 49 mg/dL High 9 - 24 mg/dL [facility] ALBUMIN/CREAT RATIO RND URon 08-14-2023 Albumin DL <= 20 mg/L (U) [Mass/Vol] 26.7 mg/L [facility] Albumin/Creatinine (U) [Mass ratio] 27 mg/g <30 mg/g [facility] Creatinine (U) [Mass/Vol] 98.9 mg/dL 20.0 - 300.0 mg/dL [facility] CBC W Auto Differential pane l (Bld)on 08-14-2023 Basophils (Bld) [#/Vol] 0.05 10*3/uL <0.11 k/uL [facility] Basophils/100 WBC (Bld) 0.9 % [facility] Differential cell count method Nom (Bld) Auto [facility] Eosinophils (Bld) [#/Vol] 0.44 10*3/uL <0.46 k/uL [facility] Eosinophils/100 WBC (Bld) 8.3 % [facility] Erythrocyte distribution width (RBC) [Ratio] 14.5 % 11.5 - 15.0 % [facility] Hematocrit (Bld) [Volume fraction] 38.6 % Low 39.0 - 51.0 % [facility] Hemoglobin (Bld) [Mass/Vol] 11.7 g/dL Low 13.0 - 17.0 g/dL [facility] Immature granulocytes (Bld) [#/Vol] <0.10 k/uL [facility] Immature granulocytes/100 WBC (Bld) 0.4 % [facility] Lymphocytes (Bld) [#/Vol] 1.18 10*3/uL 1.00 - 4.00 k/uL [facility] Lymphocytes/100 WBC (Bld) 22.1 % [facility] MCH (RBC) [Entitic mass] 31.3 pg 26.0 - 34.0 pg [facility] MCHC (RBC) [Mass/Vol] 30.3 g/dL Low 30.5 - 36.0 g/dL [facility] MCV (RBC) [Entitic vol] 103.2 fL High 80.0 - 100.0 fL [facility] Monocytes (Bld) [#/Vol] 0.42 10*3/uL <0.87 k/uL [facility] Monocytes/100 WBC (Bld) 7.9 % [facility] Neutrophils (Bld) [#/Vol] 3.22 10*3/uL 1.45 - 7.50 k/uL [facility] Neutrophils/100 WBC (Bld) 60.4 % [facility] Nucleated RBC (Bld) [#/Vol] <0.01 k/uL [facility] Nucleated RBC/100 WBC (Bld) [Ratio] 0.0 /100 WBC [facility] Platelet mean volume (Bld) [Entitic vol] 10.5 fL 9.0 - 12.7 fL [facility] Platelets (Bld) [#/Vol] 144 10*3/uL Low 150 - 400 k/uL [facility] RBC (Bld) [#/Vol] 3.74 10*6/uL Low 4.20 - 6.0 0 m/uL [facility] WBC (Bld) [#/Vol] 5.33 10*3/uL 3.70 - 11.00 k/uL [facility] Comprehensive metabolic 2000 panelon 08-14-2023 Albumin [Mass/Vol] 4.1 g/dL 3.9 - 4.9 g/dL [facility] ALP [Catalytic activity/Vol] 111 U/L 38 - 113 U/L [facility] ALT [Catalytic activity/Vol] 21 U/L 10 - 54 U/L [facility] Anion gap [Moles/Vol] 11 mmol/L 9 - 18 mmol/L [facility] AST [Catalytic activity/Vol] 26 U/L 14 - 40 U/L [facility] Bilirubin [Mass/Vol] 0.5 mg/dL 0.2 - 1 .3 mg/dL [facility] Calcium [Mass/Vol] 8.8 mg/dL 8.5 - 10. 2 mg/dL [facility] Chloride [Moles/Vol] 106 mmol/L High 97 - 10 5 mmol/L [facility] CO2 [Moles/Vol] 24 mmol/L 22 - 30 mmol/L [facility] Creatinine [Mass/Vol] 2.30 mg/dL High 0.73 - 1.22 mg/dL [facility] Estimated Glomerular Filtration Rate 28 mL/min/1.73m Low >=60 mL/min/1.73 m [facility] Glucose [Mass/Vol] 113 mg/dL High 74 - 99 mg/dL [facility] Potassium [Moles/Vol] 4.6 mmol/L 3.7 - 5.1 mmol/L [facility] Protein [Mass/Vol] 7.0 g/dL 6.3 - 8.0 g/dL [facility] Sodium [Moles/Vol] 141 mmol/L 136 - 144 mmol/L [facility] Urea nitrogen [Mass/Vol] 28 mg/dL High 9 - 24 mg/dL [facility] HbA1c (Bld)on 08-14-2023 Average glucose Estimated from glycated hemoglobin (Bld) [Mass/Vol] 108 mg/dL [facility] HbA1c (Bld) [Mass fraction] 5.4 % 4.3 - 5.6 % [facility] Lipid 1996 panelon Cholesterol [Mass/Vol] 165 mg/dL <200 mg/dL [facility] Cholesterol in HDL [Mass/Vol] 44 mg/dL >39 mg/dL [facility] Cholesterol in LDL [Mass/Vol] 100 mg/dL High <100 mg/dL [facility] Cholesterol in LDL/Cholesterol in HDL [Mass ratio] 2.27 {ratio} <2.54 [facility] Cholesterol in VLDL [Mass/Vol] 21 mg/dL <30 mg/dL [facility] Cholesterol non HDL [Mass/Vol] 121 mg/dL <130 mg/dL [facility] Cholesterol.total/Julia sterol in HDL [Mass ratio] 3.75 {ratio} <5.10 [facility] Fasting Time 14 hrs [facility] Triglyceride [Mass/Vol] 106 mg/dL <150 mg/dL [facility] INR FINGERSTICK B/Oon 2021 INR Coag (Bld) [Relative time] 1.9 (self reporting) [facility] INR FINGERSTICK B/Oon 2021 INR Coag (Bld) [Relative time] 2.1 biotel [facility] Quality Check No [facility] Vital Signs Date Time Vital Sign Value Performing Clinician Facility 03-07-2025 12:57-0400 Body height 177.[address] Guanakito Reno MD Work Phone: [facility] 03-07-2025 12:57-0400 Body mass index (BMI) [Ratio] 35.9 kg/m2 Dr. Guanakito Reno MD Work Phone: [facility] 03-07-2025 12:57-0400 Body weight 113.[address] Guanakito Reno MD Work Phone: [facility] 01-21-2025 15:33-0400 Body mass index (BMI) [Ratio] 37.02 kg/m2 Carolina Landeros APRN.COURT ORDERLY Work Phone: [facility] 01-21-2025 15:33-0400 Body temperature 97.59 [degF] Carolina Landeros APRN.COURT ORDERLY Work Phone: [facility] 01-21-2025 15:33-0400 Body weight 117.03 kg Carolina Suppan [employer].COURT ORDERLY Work Phone: [facility] 01-21-2025 15:33-0400 Diastolic blood pressure 60 mm[Hg] Carolina Suppan [employer] OFFICIAL.COURT ORDERLY Work Phone: [facility] 01-21-2025 15:33-0400 Heart rate 59 /min Carolina Suppan [employer] OFFICIAL.COURT ORDERLY Work Phone: [facility] 01-21-2025 15:33-0400 SaO2% (BldA) [Mass fraction] 97 % Carolina Suppan [employer] OFFICIAL.COURT ORDERLY Work Phone: [facility] 01-21-2025 15:33-0400 Systolic blood pressure 122 mm[Hg] Carolina Suppan [employer] OFFICIAL.COURT ORDERLY Work Phone: [facility] 08-06-2024 12:57-0400 Body height 177.8 cm Laura Iraheta MD Work Phone: [facility] Comment on above: patient reports 08-06-2024 12:57-0400 Body mass index (BMI) [Ratio] 34.44 kg/m2 Laura Iraheta MD Work Phone: [facility] 08-06-2024 12:57-0400 Body weight 108.86 kg Laura Iraheta MD Work Phone: [facility] 08-06-2024 12:57-0400 Diastolic blood pressure 68 mm[Hg] Laura Iraheta MD Work Phone: [facility] 08-06-2024 12:57-0400 Heart rate 61 /min Laura Iraheta MD Work Phone: [facility] 08-06-2024 12:57-0400 SaO2% (BldA) [Mass fraction] 99 % Laura Iraheta MD Work Phone: [facility] 08-06-2024 12:57-0400 Systolic blood pressure 128 mm[Hg] Laura Iraheta MD Work Phone: [facility] 07-12-2024 11:22-0400 Body height 177.8 cm Guanakito Reno MD Work Phone: [facility] 07-12-2024 11:22-0400 Body mass index (BMI) [Ratio] 34.55 kg/m2 Guanakito Reno MD Work Phone: [facility] 07-12-2024 11:22-0400 Body weight 109.23 kg Guanakito Reno MD Work Phone: [facility] 07-12-2024 11:22-0400 Diastolic blood pressure 62 mm[Hg] Guanakito Reno MD Work Phone: [facility] 07-12-2024 11:22-0400 Heart rate 59 /min Guanakito Reno MD Work Phone: [facility] 07-12-2024 11:22-0400 Systolic blood pressure 114 mm[Hg] Guanakito Reno MD Work Phone: [facility] 07-10-2024 08:11-0400 Body height 177.8 cm Cal Thacker MD Work Phone: [facility] Comment on above: Patient reports 07-10-2024 08:11-0400 Body mass index (BMI) [Ratio] 34.49 kg/m2 Cal Thacker MD Work Phone: [facility] 07-10-2024 08:11-0400 Body weight 109.05 kg Cal Thacker MD Work Phone: [facility] 07-10-2024 08:11-0400 Diastolic blood pressure 70 mm[Hg] Cal Thacker MD Work Phone: [facility] 07-10-2024 08:11-0400 Heart rate 94 /min Cal Thacker MD Work Phone: [facility] 07-10-2024 08:11-0400 SaO2% (BldA) [Mass fraction] 94 % Cal Thacker MD Work Phone: [facility] 07-10-2024 08:11-0400 Systolic blood pressure 120 mm[Hg] Cal Thacker MD Work Phone: [facility] 07-10-2024 08:08-0400 Body height 177.8 cm Pam Reddy MD Work Phone: [facility] Comment on above: Patient reports 07-10-2024 08:08-0400 Body mass index (BMI) [Ratio] 34.49 kg/m2 Pam Reddy MD Work Phone: [facility] 07-10-2024 08:08-0400 Body weight 109.05 kg Pam Reddy MD Work Phone: [facility] Comment on above: Fully clothed with shoes on. 07-10-2024 08:08-0400 Diastolic blood pressure 70 mm[Hg] Pam Reddy MD Work Phone: [facility] 07-10-2024 08:08-0400 Heart rate 94 /min Pam Reddy MD Work Phone: [facility] 07-10-2024 08:08-0400 SaO2% (BldA) [Mass fraction] 94 % Pam Reddy MD Work Phone: [facility] 07-10-2024 08:08-0400 Systolic blood pressure 120 mm[Hg] Pam Reddy MD Work Phone: [facility] 06-06-2024 11:31-0400 Body mass index (BMI) [Ratio] 36.03 kg/m2 Carolina Suppan [employer] OFFICIAL.COURT ORDERLY Work Phone: [facility] 06-06-2024 11:31-0400 Body weight 110.68 kg Carolina Suppan [employer] OFFICIAL.COURT ORDERLY Work Phone: [facility] 06-06-2024 11:31-0400 Diastolic blood pressure 68 mm[Hg] Carolina Suppan [employer] OFFICIAL.COURT ORDERLY Work Phone: [facility] 06-06-2024 11:31-0400 Heart rate 71 /min Carolina Suppan [employer] OFFICIAL.COURT ORDERLY Work Phone: [facility] 06-06-2024 11:31-0400 Respiratory rate 18 /min Carolina Suppan [employer] OFFICIAL.COURT ORDERLY Work Phone: [facility] 06-06-2024 11:31-0400 SaO2% (BldA) [Mass fraction] 99 % Carolina Suppan [employer] OFFICIAL.COURT ORDERLY Work Phone: [facility] 06-06-2024 11:31-0400 Systolic blood pressure 144 mm[Hg] Carolina Suppan [employer] OFFICIAL.COURT ORDERLY Work Phone: [facility] 06-05-2024 16:41-0400 Body mass index (BMI) [Ratio] 36.04 kg/m2 Valerie Gruber [employer] OFFICIAL.COURT ORDERLY Work Phone: [facility] 06-05-2024 16:41-0400 Body temperature 96.6 [degF] Valerie Gruber [employer] OFFICIAL.COURT ORDERLY Work Phone: [facility] 06-05-2024 16:41-0400 Body weight 110.7 kg Valerie Gruber [employer] OFFICIAL.COURT ORDERLY Work Phone: [facility] 06-05-2024 16:41-0400 Diastolic blood pressure 70 mm[Hg] Valerie Gruber [employer] OFFICIAL.COURT ORDERLY Work Phone: [facility] 06-05-2024 16:41-0400 Heart rate 75 /min Valerie Gruber [employer] OFFICIAL.COURT ORDERLY Work Phone: [facility] 06-05-2024 16:41-0400 Respiratory rate 19 /min Valerie Gruber [employer] OFFICIAL.COURT ORDERLY Work Phone: [facility] 06-05-2024 16:41-0400 SaO2% (BldA) [Mass fraction] 97 % Valerie Gruber [employer] OFFICIAL.COURT ORDERLY Work Phone: [facility] 06-05-2024 16:41-0400 Systolic blood pressure 140 mm[Hg] Valerie Gruber [employer] OFFICIAL.COURT ORDERLY Work Phone: [facility] 05-06-2024 17:38-0400 Body height 175.3 cm Corrina Lennon [employer] OFFICIAL.COURT ORDERLY Work Phone: [facility] 05-06-2024 17:38-0400 Body mass index (BMI) [Ratio] 37.95 kg/m2 Corrina Haagen [employer] OFFICIAL.COURT ORDERLY Work Phone: [facility] 05-06-2024 17:38-0400 Body weight 116.57 kg Corrina Haagen [employer] OFFICIAL.COURT ORDERLY Work Phone: [facility] 05-06-2024 17:38-0400 Diastolic blood pressure 58 mm[Hg] Corrina Haagen [employer] OFFICIAL.COURT ORDERLY Work Phone: [facility] 05-06-2024 17:38-0400 Heart rate 62 /min Corrina Haagen [employer] OFFICIAL.COURT ORDERLY Work Phone: [facility] 05-06-2024 17:38-0400 Respiratory rate 14 /min Corrina Haagen [employer] OFFICIAL.COURT ORDERLY Work Phone: [facility] 05-06-2024 17:38-0400 SaO2% (BldA) [Mass fraction] 89 % Corrina Haagen [employer] OFFICIAL.COURT ORDERLY Work Phone: [facility] 05-06-2024 17:38-0400 Systolic blood pressure 122 mm[Hg] Corrina Haagen [employer] OFFICIAL.COURT ORDERLY Work Phone: [facility] 04-08-2024 15:17-0400 Body mass index (BMI) [Ratio] 37.63 kg/m2 Corrina Haagen [employer] OFFICIAL.COURT ORDERLY Work Phone: [facility] 04-08-2024 15:17-0400 Body weight 115.58 kg Corrina Haagen [employer] OFFICIAL.COURT ORDERLY Work Phone: [facility] 04-08-2024 14:55-0400 Diastolic blood pressure 58 mm[Hg] Corrina Haagen [employer] OFFICIAL.COURT ORDERLY Work Phone: [facility] 04-08-2024 14:55-0400 Heart rate 72 /min Corrina Haagen [employer] OFFICIAL.COURT ORDERLY Work Phone: [facility] 04-08-2024 14:55-0400 Respiratory rate 16 /min Corrina Haagen [employer] OFFICIAL.COURT ORDERLY Work Phone: [facility] 04-08-2024 14:55-0400 Systolic blood pressure 102 mm[Hg] Corrina Lennon ÁLVARO.COURT ORDERLY Work Phone: [facility] 03-26-2024 16:33-0400 Body height 175.3 cm Guanakito Reno MD Work Phone: [facility] 03-26-2024 16:33-0400 Body mass index (BMI) [Ratio] 37.07 kg/m2 Guanakito Reno MD Work Phone: [facility] 03-26-2024 16:33-0400 Body weight 113.85 kg Guanakito Reno MD Work Phone: [facility] 03-26-2024 16:33-0400 Diastolic blood pressure 46 mm[Hg] Guanakito Reno MD Work Phone: [facility] 03-26-2024 16:33-0400 Heart rate 86 /min Guanakito Reno MD Work Phone: [facility] 03-26-2024 16:33-0400 SaO2% (BldA) [Mass fraction] 98 % Guanakito Reno MD Work Phone: [facility] 03-26-2024 16:33-0400 Systolic blood pressure 98 mm[Hg] Guanakito Reno MD Work Phone: [facility] 03-25-2024 14:52-0400 Body mass index (BMI) [Ratio] 37.21 kg/m2 Pam Reddy MD Work Phone: [facility] 03-25-2024 14:52-0400 Body weight 114.31 kg Pam Reddy MD Work Phone: [facility] 03-25-2024 14:52-0400 Diastolic blood pressure 69 mm[Hg] Pam Reddy MD Work Phone: [facility] 03-25-2024 14:52-0400 Heart rate 66 /min Pam Reddy MD Work Phone: [facility] 03-25-2024 14:52-0400 SaO2% (BldA) [Mass fraction] 96 % Pam Reddy MD Work Phone: [facility] 03-25-2024 14:52-0400 Systolic blood pressure 116 mm[Hg] Pam Reddy MD Work Phone: [facility] 12-22-2023 14:55-0500 Body temperature 97.81 [degF] Carolina Suppan [employer] OFFICIAL.THIRD GRADE TEACHER Work Phone: [facility] 12-22-2023 14:55-0500 Diastolic blood pressure 60 mm[Hg] Carolina Suppan [employer] OFFICIAL.[employer]IRD GRADE TEACHER Work Phone: [facility] 12-22-2023 14:55-0500 Heart rate 76 /min Carolina Suppan [employer] OFFICIAL.THIRD GRADE TEACHER Work Phone: [facility] 12-22-2023 14:55-0500 Respiratory rate 18 /min Carolina Suppan [employer] OFFICIAL.THIRD GRADE TEACHER Work Phone: [facility] 12-22-2023 14:55-0500 SaO2% (BldA) [Mass fraction] 99 % Carolina Suppan [employer] OFFICIAL.THIRD GRADE TEACHER Work Phone: [facility] 12-22-2023 14:55-0500 Systolic blood pressure 122 mm[Hg] Carolina Suppan [employer] OFFICIAL.THIRD GRADE TEACHER Work Phone: [facility] 08-14-2023 13:24-0400 Body height 175.3 cm Guanakito Reno MD Work Phone: [facility] 08-14-2023 13:24-0400 Body weight 120.75 kg Guanakito Reno MD Work Phone: [facility] 08-14-2023 13:24-0400 Diastolic blood pressure 68 mm[Hg] Guanakito Reno MD Work Phone: [facility] 08-14-2023 13:24-0400 Heart rate 59 /min Guanakito Reno MD Work Phone: [facility] 08-14-2023 13:24-0400 SaO2% (BldA) [Mass fraction] 99 % Guanakito Reno MD Work Phone: [facility] 08-14-2023 13:24-0400 Systolic blood pressure 120 mm[Hg] Guanakito Reno MD Work Phone: [facility] 02-13-2023 14:39-0400 Body weight 119.75 kg Pam Reddy MD Work Phone: [facility] 02-13-2023 14:39-0400 Diastolic blood pressure 60 mm[Hg] Pam Reddy MD Work Phone: [facility] 02-13-2023 14:39-0400 Heart rate 78 /min Pam Reddy MD Work Phone: [facility] 02-13-2023 14:39-0400 SaO2% (BldA) [Mass fraction] 96 % Pam Reddy MD Work Phone: [facility] 02-13-2023 14:39-0400 Systolic blood pressure 110 mm[Hg] Pam Reddy MD Work Phone: [facility] 02-06-2023 15:29-0400 Body weight 118.39 kg Guanakito Reno MD Work Phone: [facility] 02-06-2023 15:29-0400 Diastolic blood pressure 58 mm[Hg] Guanakito Reno MD Work Phone: [facility] 02-06-2023 15:29-0400 Heart rate 76 /min Guanakito Reno MD Work Phone: [facility] 02-06-2023 15:29-0400 Respiratory rate 16 /min Guanakito Reno MD Work Phone: [facility] 02-06-2023 15:29-0400 SaO2% (BldA) [Mass fraction] 94 % Guanakito Reno MD Work Phone: [facility] 02-06-2023 15:29-0400 Systolic blood pressure 122 mm[Hg] Guanakito Reno MD Work Phone: [facility] 10-04-2022 10:38-0500 Body height 175.3 cm Alondra Prescott DO Work Phone: [facility] 10-04-2022 10:38-0500 Body weight 117.03 kg Alondra Prescott DO Work Phone: [facility] 10-04-2022 10:38-0500 Diastolic blood pressure 66 mm[Hg] Alondra Prescott DO Work Phone: [facility] 10-04-2022 10:38-0500 Heart rate 57 /min Alondra Prescott DO Work Phone: [facility] 10-04-2022 10:38-0500 SaO2% (BldA) [Mass fraction] 100 % Alondra Prescott DO Work Phone: [facility] 10-04-2022 10:38-0500 Systolic blood pressure 122 mm[Hg] Alondra Prescott DO Work Phone: [facility] 08-15-2022 14:50-0400 Body height 175.3 cm Pam Reddy MD Work Phone: [facility] 08-15-2022 14:50-0400 Body weight 119.3 kg Pam Reddy MD Work Phone: [facility] 08-15-2022 14:50-0400 Diastolic blood pressure 62 mm[Hg] Pam Reddy MD Work Phone: [facility] 08-15-2022 14:50-0400 Heart rate 58 /min Pam Reddy MD Work Phone: [facility] 08-15-2022 14:50-0400 Respiratory rate 18 /min Pam Reddy MD Work Phone: [facility] 08-15-2022 14:50-0400 SaO2% (BldA) [Mass fraction] 98 % Pam Reddy MD Work Phone: [facility] 08-15-2022 14:50-0400 Systolic blood pressure 114 mm[Hg] Pam Reddy MD Work Phone: [facility] 01-19-2022 15:14-0400 Body weight 121.11 kg Guanakito Reno MD Work Phone: [facility] 01-19-2022 15:14-0400 Diastolic blood pressure 68 mm[Hg] Guanakito Reno MD Work Phone: [facility] 01-19-2022 15:14-0400 Heart rate 60 /min Guanakito Reno MD Work Phone: [facility] 01-19-2022 15:14-0400 Systolic blood pressure 124 mm[Hg] Guanakito Reno MD Work Phone: [facility] Encounters Encounter Date Encounter Type Care Provider Facility Start: 06-24-2025 ambulatory Josafat ORTEZ Facil ity:[facility] Start: 06-17-2025 ambulatory Josafat ORTEZ Facil ity:[facility] Start: 06-12-2025 ambulatory Josafat ORTEZ Facil ity:[facility] Start: 06-10-2025 ambulatory Biankabrice ORTEZ Facili ty:[facility] Start: 06-03-2025 ambulatory Josafat ORTEZ Facil ity:[facility] Start: 06-03-[address] Josafat juarez MD -[facility] Start: 05-27-2025 ambulatory Josafat ORTEZ Facil ity:[facility] Start: 05-27-[address] Josafat juaerz MD -[facility] Start: 05-20-2025 End: 05-20-[address] Guanakito Reno MD Work Phone: -[facility] Start: 05-20-2025 End: 05-20-[address] Josafat Simon MD -[facility] Start: 05-20-2025 End: 05-20-2025 ambulatory Josafat ORTEZ Facility:[facility] Start: 05-15-2025 ambulatory Josafat ORTEZ Facil ity:[facility] Start: 05-15-[address] Josafat juarez MD -[facility] Start: 05-13-2025 ambulatory Josafat ORTEZ Facil ity:[facility] Start: 05-13-[address] Josafat juarez MD -[facility] Start: 05-08-2025 ambulatory Josafat ORTEZ Facil ity:[facility] Start: 05-08-[address] Josafat juarez MD -[facility] Start: 05-06-2025 ambulatory Josaaft ORTEZ Facil ity:[facility] Start: 05-06-[address] Josafat juarez MD -[facility] Start: 05-02-2025 End: 05-02-[address] Burt Zamora MD -[facility] Start: 05-02-2025 End: 05-02-[address] Guanakito Reno MD Work Phone: -[facility] Start: 05-01-2025 ambulatory Josafat ORTEZ Facil ity:[facility] Start: 05-01-[address] Josafat juarez MD -[facility] Start: 04-29-2025 ambulatory Josafat ORTEZ Facil ity:[facility] Start: 04-29-[address] Josafat juarez MD -[facility] Start: 04-24-2025 ambulatory Joasfat ORTEZ Facil ity:[facility] Start: 04-24-[address] Josafat juarez MD -[facility] Start: 04-17-2025 ambulatory Bianka Contrerasi ty:[facility] Start: 04-17-[address] Bianka Gonzalez MD -[facility] Start: 04-15-2025 End: 04-15-2025 Telephone encounter Twin Cole [facility] Tele[facility] Comment on above: Anticoagulation Tele phone Fu (Home INR result) Start: 04-14-2025 End: 04-14-2025 Telephone encounter Guanakito Reno MD Work Phone: [facility] [place] Comment on above: Patient Question Start: 04-14-2025 ambulatory Josafat García Facility :[facility] Start: 04-14-[address] Josafat García MD -Physical Therapy Work Phone: Start: 04-08-2025 End: 04-08-2025 Refill Carolina Landeros [employer] OFFICIAL.COURT ORDERLY Work Phone: [facility] [place] Comment on above: Refill Request Start: 03-28-2025 End: 03-28-2025 Telephone encounter Guanakito Reno MD Work Phone: [facility] [place] Comment on above: Faxed to [facility] Start: 03-24-2025 End: 03-24-2025 Telephone encounter Alejandro Molina [facility] Comment on above: Anticoagulation Tele phone Fu (Home INR Result ) Start: 03-07-2025 End: 03-07-[address] Josafat García MD -[facility] Work Phone: Start: 03-07-2025 End: 03-07-2025 ambulatory Josafat García [facility] Start: 03-06-2025 End: 03-06-2025 ambulatory CAROLINA LANDEROS Facility:[facility] Start: 03-05-2025 End: 03-06-2025 Emergency department patient visit KEDAR HERNANDEZ Facility:[facility] Start: 02-20-2025 End: 02-20-2025 Telephone encounter Jimmy Carrizales [facility] Comment on above: Anticoagulation Tele phone Fu (Home INR) Start: 01-31-2025 End: 01-31-2025 Telephone encounter Kamran Ayon [facility] Comment on above: Anticoagulation Tele phone Fu (INR Home Test Result) Start: 01-23-2025 End: 03-25-2025 Follow-up encounter Carolina Landeros [employer] OFFICIAL.COURT ORDERLY Work Phone: [facility] [place] Start: 01-21-2025 End: 01-21-2025 ambulatory CAROLINA LANDEROS Facility:[facility] Start: 01-21-2025 End: 01-21-2025 Office outpatient visit 25 minutes Carolina Landeros [employer] OFFICIAL.COURT ORDERLY Work Phone: [facility] [place] Comment on above: Hyperlipidemia, mixe d (Primary [...] (HCC); Chronic renal disease, stage IV (HCC); care home (current) use of anticoagulants; Obesity, Class II, BMI 35-39.9; Viral conjunctivitis; Seasonal allergic rhinitis, unspecified trigger; Bilateral impacted cerumen Start: 01-08-2025 End: 01-15-2025 Telephone encounter Ruthie Cuevas [facility] Comment on above: Anticoagulation Foll ow Up (Home INR result ) Start: 01-07-2025 End: 01-08-2025 Refill Corrina Lennon APRN.CNP Work Phone: [facility] Comment on above: Refill Request Start: 12-30-2024 End: 12-30-2024 Telephone encounter Twin Cole [facility] Comment on above: Anticoagulation Tele phone Fu (Home INR result) Start: 12-11-2024 End: 12-11-2024 Telephone encounter Jimmy Carrizales [facility] Comment on above: Anticoagulation Tele phone Fu (Home INR) Start: 11-26-2024 End: 11-26-2024 Telephone encounter Twin Cole [facility] Comment on above: Anticoagulation Tele phone Fu (Home INR result) Start: 10-28-2024 End: 10-28-2024 Telephone encounter Alejandro Molina [facility] Comment on above: Anticoagulation Tele phone Fu (Home INR Result ) Start: 10-21-2024 End: 10-21-2024 Telephone encounter Guanakito Reno MD Work Phone: [facility] Comment on above: Patient Update; Rozina ent Question Start: 10-01-2024 End: 10-01-2024 Telephone encounter Twin Cole [facility] Comment on above: Anticoagulation Tele phone Fu (Home INR result) Start: 08-26-2024 End: 08-26-2024 Telephone encounter Alejandro Molina [facility] Comment on above: Anticoagulation Tele phone Fu (Home INR Result ) Start: 08-19-2024 End: 08-19-2024 ambulatory Melania Galindo RN Office Copy [employer] Management Comment on above: QI SMITH RN [...] Start: 08-06-2024 End: 08-07-2024 ambulatory LAURA IRAHETA Facility:[facility] Start: 07-30-2024 End: 07-30-2024 ambulatory Josselyn Mayer APRN.COURT ORDERLY Work Phone: [facility] [place] Start: 07-30-2024 End: 08-01-2024 Telephone encounter Josselyn Mayer APRN.COURT ORDERLY Work Phone: [facility] [place] Comment on above: 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 Start: 07-25-2024 End: 07-26-2024 Telephone encounter Jimmy Carrizales [facility] Comment on above: Anticoagulation (Pat ient update) Start: 07-23-2024 End: 07-23-2024 ambulatory PAM REDDY Facility:[facility] Start: 07-23-2024 End: 07-23-[address] [facility] Start: 07-23-2024 End: 07-23-2024 Subsequent hospital visit by physician [facility] 1 (I-Stat) RADIO [facility] Comment on above: Nonrheumatic aortic valve stenosis [I35.0] Start: 07-22-2024 End: 07-22-2024 ambulatory VALERIE PIÑA Facility:[facility] Start: 07-15-2024 End: 07-15-2024 Orders Only Valerie Piña [employer] OFFICIAL.COURT ORDERLY Work Phone: [facility] Comment on above: Paroxysmal atrial fi brillation (HCC) (Primary Dx); Aortic valve stenosis, etiology of cardiac valve disease unspecified Nonrheumatic aortic valve stenosis (Primary Dx); Paroxysmal atrial fibrillation (HCC) Patient Update Results Start: 07-12-2024 End: 07-12-2024 Telephone encounter Guanakito Reno MD Work Phone: [facility] [place] Start: 07-12-2024 End: 07-12-2024 ambulatory JOSSELYN MAYER Facility:[facility] Start: 07-12-2024 End: 07-15-2024 Patient encounter procedure Guanakito Reno MD Work Phone: [facility] [place] Comment on above: Essential hypertensi on (Primary [...] disease, stage IV (HCC); Mixed dementia (HCC); 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; Need for vaccination Essential hypertensi on (Primary Dx) Start: 07-10-2024 ambulatory JOSSELYN MAYER Facili ty:[facility] Start: 07-10-2024 End: 07-10-2024 Subsequent hospital visit by physician Ekg/Holter/Event Monitor [facility] GENERAL CARDIAC TESTING Comment on above: Nonrheumatic aortic valve stenosis [I35.0] Start: 07-10-2024 End: 07-10-2024 Patient encounter procedure Cal Thacker MD Work Phone: [facility] Comment on above: [...] encounter status Pam Reddy MD Work Phone: [facility] Work Phone: Start: 07-10-2024 Encounter for preprocedural cardiovascular examination PAM REDDY [facility] Start: 07-10-2024 End: 07-10-2024 ambulatory GUANAKITO RENO Facility:[facility] Start: 07-05-2024 End: 07-05-2024 Telephone encounter Annamarie Garcia [facility] Comment on above: Anticoagulation Tele phone Fu Start: 2024 End: 2024 Telephone encounter Guanakito Reno MD Work Phone: [facility] Start: 06-18-2024 End: 06-18-2024 Telephone encounter Jimmy Carrizales [facility] Comment on above: Anticoagulation Tele phone Fu (Home INR) Start: 06-06-2024 End: 06-06-2024 ambulatory CAROLINA LANDEROS Facility:[facility] Start: 06-06-2024 End: 06-06-2024 Office outpatient visit 15 minutes Carolina Landeros APRN.COURT ORDERLY Work Phone: [facility] [place] Comment on above: Aortic valve stenosi s, etiology of cardiac valve disease unspecified (Primary Dx); Hypertensive kidney disease with stage 3b chronic kidney disease (HCC); Paroxysmal atrial fibrillation (HCC); Benign prostatic hyperplasia without lower urinary tract symptoms; Anemia, unspecified type Start: 06-05-2024 End: 06-05-2024 ambulatory GUANAKITO RENO Facility:[facility] Start: 06-05-2024 End: 06-05-2024 Patient encounter procedure Valerie Gruber APRN.COURT ORDERLY Work Phone: [facility] Comment on above: Blood pressure check (Primary Dx); Leg swelling Start: 06-05-2024 End: 06-05-2024 Patient encounter status Valerie Gruber APRN.CNP Work Phone: [facility] Work Phone: Start: 06-03-2024 End: 06-05-2024 ambulatory Guanakito Reno MD Work Phone: [facility] [place] Comment on above: Water pill/ kidney d r # Start: 05-20-2024 Telephone encounter Josselyn Mayer [employer] OFFICIAL.COURT ORDERLY Work Phone: [facility] [place] 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: 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 Results Start: 05-17-2024 Telephone encounter Dorothy Josiane [facility] Comment on above: Anticoagulation Tele phone Fu Start: 05-06-2024 End: 05-06-2024 Office outpatient visit 15 minutes Corrina Lennon APRN.COURT ORDERLY Work Phone: [facility] [place] Comment on above: Essential hypertensi on (Primary Dx); Hypertensive kidney disease with stage 3 chronic kidney disease, unspecified whether stage 3a or 3b CKD (HCC); Anemia, unspecified type Start: 05-02-2024 End: 05-02-2024 Subsequent hospital visit by physician [facility] [place] [facility] Work Phone: Radiology Comment on above: Renal insufficiency [N28.9] Start: 04-24-2024 Telephone encounter [facility] Comment on above: Anticoagulation Tele phone Fu (Home INR) Start: 04-19-2024 Telephone encounter Guanakito Reno MD Work Phone: [facility] [place] Comment on above: Results Start: 04-08-2024 End: 04-08-2024 Office outpatient visit 25 minutes Corrina Lennon APRN.COURT ORDERLY Work Phone: [facility] [place] Comment on above: Essential hypertensi on (Primary Dx); Benign prostatic hyperplasia without lower urinary tract symptoms; Hypertensive kidney disease with stage 3 chronic kidney disease, unspecified whether stage 3a or 3b CKD (HCC); Aortic valve disorder; Occlusion and stenosis of unspecified carotid artery; Anemia, unspecified type; Chronic renal disease, stage IV (HCC) Start: 04-08-2024 Telephone encounter [facility] Tele[facility] Comment on above: Anticoagulation Tele phone Fu (Home INR Result ) Start: 04-05-2024 Telephone encounter Guanakito Reno MD Work Phone: [facility] Comment on above: Results Start: 04-04-2024 Telephone encounter Jimmy Carrizales [facility] Ambulatory Telemanagement Comment on above: Anticoagulation Tele phone Fu (Home INR) Start: 03-26-2024 End: 03-26-2024 Patient encounter procedure Guanakito Reno MD Work Phone: [facility] Comment on above: Essential hypertensi on (Primary [...] or 3b CKD (HCC); Mixed dementia (HCC); 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; Obesity, Class II, [...] payor) Start: 03-07-2024 Telephone encounter Jimmy Carrizales [facility] Comment on above: Anticoagulation Tele phone Fu Start: 02-14-2024 Telephone encounter [facility] Comment on above: Anticoagulation Tele phone Fu (Home INR results ) Start: 01-17-2024 Refill Guanakito Reno MD Work Phone: [facility] Comment on above: Refill Request requesting medicatio n on list Start: 01-15-2024 Telephone encounter [facility] Comment on above: Anticoagulation Tele phone Fu (Home INR Result ) Start: 12-22-2023 End: 12-22-2023 Office outpatient visit 15 minutes Carolina Landeros APRN.THIRD GRADE TEACHER Work Phone: [facility] [place] Comment on above: Abrasion of arm, lef t, initial encounter (Primary Dx); Chronic insomnia Start: 12-21-2023 ambulatory Guanakito Reno MD Work Phone: [facility] [place] Comment on above: skin laceration Start: 12-21-2023 Telephone encounter Jimmy Carrizales [facility] Ambulatory Telemanagement Comment on above: Anticoagulation Tele phone Fu (Home INR) Start: 12-04-2023 Telephone encounter Alejandro Molina R Pharm[facility] Ambulatory [...] payer) Start: 08-22-2023 Telephone encounter Twin Cole [facility] P harmacy Ambulatory Telemanagement Comment on above: Anticoagulation Tele phone Fu (Home INR result) Start: 08-16-2023 Telephone encounter Guanakito Reno MD Work Phone: [facility] [place] Comment on above: Results Start: 08-15-2023 Telephone encounter Guanakito Reno MD Work Phone: [facility] [place] Comment on above: Results Start: 08-14-2023 End: 08-14-2023 Patient encounter procedure Guanakito Reno MD Work Phone: [facility] [place] Comment on above: Onychomycosis (Prima ry Dx); [...] 07-04-2023 Refill Guanakito Reno MD Work Phone: [facility] [place] Comment on above: Refill Request Start: 2023 ambulatory Lizette Cardenas RN [facility] Comment on above: QI SMITH RN ( Medication Adherence review per request of payer) Start: 05-22-2023 Telephone encounter [facility] Comment on above: Anticoagulation Tele phone Fu (Home INR Result ) Start: 04-24-2023 Telephone encounter [facility] Comment on above: Anticoagulation Tele phone Fu (Home INR Result ) Start: 04-19-2023 Refill Guanakito Reno MD Work Phone: [facility] [place] Comment on above: Refill Request Start: 03-28-2023 Telephone encounter Twin Cole [facility] Comment on above: Anticoagulation Tele phone Fu (Home INR result) Start: 02-13-2023 End: 02-13-2023 Patient encounter procedure Pam Reddy MD Work Phone: Cardiology Comment on above: Syncope, unspecified syncope type (Primary Dx); Aortic valve disorder Start: 02-06-2023 End: 02-06-2023 Patient encounter procedure Guanakito Reno MD Work Phone: [facility] [place] Comment on above: Essential hypertensi on with [...] 01-16-2023 Refill Guanakito Reno MD Work Phone: [facility] Comment on above: Refill Request Start: 01-09-2023 Telephone encounter Alejandro Molina [facility] Ambulatory Telemanagement Comment on above: Anticoagulation (INR Result) Start: 12-19-2022 Telephone encounter Alejandro Molina [facility] Ambulatory Telemanagement Comment on above: Anticoagulation Tele phone Fu (Home INR Result ) Start: 11-28-2022 Telephone encounter Alejandro Molina [facility] Ambulatory Telemanagement Comment on above: Anticoagulation Tele phone Fu (Home INR Result ) Start: 11-18-2022 Telephone encounter Kamran Ayon [facility] P harmacy Ambulatory Telemanagement Comment on above: Anticoagulation Tele phone Fu Start: 11-04-2022 Telephone encounter Kamran Ayon h P harmacy Ambulatory Telemanagement Comment on above: Anticoagulation Tele phone Fu (INR Home Test Result) Start: 11-01-2022 Telephone encounter Twin Kelsey h P harmacy Ambulatory Telemanagement Comment on above: [...] Work Phone: [facility] Comment on above: Orders; Refill Reque st Start: 09-21-2022 Telephone encounter [facility] Tele[facility] Comment on above: Anticoagulation Tele phone Fu (Home INR result expected) Start: 09-07-2022 ambulatory Lizette Cardenas RN [facility] [place] Comment on above: QI SMITH RN ( Medication Adherence review at request of payer) Start: 08-22-2022 Telephone encounter [facility]jandro [facility] Ambulatory Telemanagement Comment on above: Anticoagulation (INR result) Start: 08-15-2022 End: 08-15-2022 Patient encounter procedure Pam Reddy MD Work Phone: Cardiology Comment on above: Obesity, Class II, B NM 35-39.9 (Primary Dx); Paroxysmal atrial fibrillation (HCC); Nonrheumatic aortic valve stenosis; Aortic valve disorder Start: 08-01-2022 Telephone encounter [facility] Tele[facility] Comment on above: Anticoagulation Tele phone Fu (Home INR Result) Start: 07-22-2022 Refill Guanakito Reno MD Work Phone: [facility] Comment on above: Refill Request Start: 2022 Telephone encounter [facility] Comment on above: Anticoagulation (INR result ) Start: 06-14-2022 ambulatory Nirmala Lim [place] [facility] [place] Comment on above: Population Health Na vigation Outreach ([facility] care gaps) Start: 06-06-2022 Telephone encounter Alejandro [facility] Tele[facility] Comment on above: Anticoagulation (Gabrielle e INR) Start: 05-19-2022 Refill Guanakito Reno MD Work Phone: [facility] Comment on above: Refill Request Start: 05-16-2022 Telephone encounter [facility]andro [facility] Ambulatory Telemanagement Comment on above: Anticoagulation Tele phone Fu (Home INR Result) Start: 04-25-2022 Telephone encounter Val Oliver [facility] Comment on above: Anticoagulation Tele phone Fu (Home INR ) Start: 04-04-2022 Telephone encounter [facility]andro [facility] Tele[facility] Comment on above: Anticoagulation Tele phone Fu (Home INR Result) Start: 03-23-2022 Telephone encounter [facility] Comment on above: Anticoagulation Tele phone Fu (Home INR result expected) Start: 03-16-2022 Telephone encounter Alondra Prescott DO Work Phone: Vascular Surgery Comment on above: Appointment (testing needed?) Start: 03-09-2022 Telephone encounter Ruthie Cuevas [facility] Comment on above: Anticoagulation Tele phone Fu (Home INR result ) Start: 02-17-2022 Telephone encounter Jazmyn Lockwoodric RP h Pharmacy Ambulatory Telemanagement Comment on [...] Work Phone: [facility] Comment on above: Essential hypertensi on (Primary [...] CKD (HCC) Start: 01-13-2022 Telephone encounter Jazmyn Lockwoodric RP h Pharmacy Ambulatory Telemanagement Comment on above: Anticoagulation Tele phone Fu Start: 06-07-2018 [facility] Facility :[facility] Start: 11-24-2017 End: 11-24-2017 Ambulatory [facility] Facility:[facility] Procedures Date Procedure Procedure Detail Performing Clinician Start: 05-02-2025 Plain X-ray of shoulder Dr. Guanakito Reno MD Work Phone: Start: 07-12-2024 [employer] COVI D-19 VACCINE AGE 12+ YR (COMIRNATY) Guaankito Reno MD Work Phone: Start: 07-10-2024 Ecg routine ecg w/le ast 12 lds w/i&r Pam Redyd MD Work Phone: Start: 05-02-2024 Us retroperitoneal [...] Velasquez with bovine patch angioplasty, 04/17/2014 @ [facility] History of carotid endarterectomy History of carotid endarterectomy Guanakito Reno MD Work Phone: History of carotid endarterectomy History of carotid endarterectomy Laura Iraheta MD Work Phone: Plan of Treatment Date Care Activity Detail Author Start: 04-22-2031 Urine microalbumin profile [facility] Start: 01-21-2026 Diabetic foot examination Diabetic Foot Exam [facility] Start: 01-21-2026 Hepatitis B surface antibody level LDL Cholesterol [facility] Start: 08-06-2025 End: 09-05-2025 US Carotid arteries - bilateral US CAROTID BILATERAL Radiology Routine Bilateral carotid artery stenosis History of carotid endarterectomy Expected: 08/06/2025 (Approximate), Expires: 09/05/2025 [facility] Work Phone: Comment on above: Expected: 08/06/2025 (Approximate), Expi res: 09/05/2025 Start: 07-23-2025 End: 07-23-2025 Patient encounter procedure 07/23/2025 3:20 PM EDT Office Visit [facility] [place] [address] [place] [address] Guanakito Reno MD [address] [place] [address] 6 month exam [facility] [place] Comment on above: 6 month exam Start: 07-23-2025 Hemoglobin A1c measurement HbA1C [facility] Start: 07-12-2025 Covid-19 Vaccine ( season) Covid-19 Vaccine () [facility] Comment on above: Postponed from 01/09/2025 (Declined at t his time) Start: 07-12-2025 Hepatitis B surface antibody level LDL Cholesterol [facility] Start: 06-16-2025 Influenza vaccination [facility] Start: 05-06-2025 Annual PCP Team Chronic Disease Visit Annual PCP Team Chronic Disease Visit [facility] Start: 05-06-2025 BP Controlled (<130/80) BP Controlled (<130/80) [facility] in Start: 05-02-2025 Plain X-ray of shoulder Shoulder min 2 Views [facility] Start: 05-02-2025 XR Shoulder GE 2 Views [facility] Start: 04-19-2025 Complete blood count Hemoglobin/Hematocrit [facility] Start: 04-19-2025 Creatinine measurement Serum Creatinine [facility] Start: 04-08-2025 Annual PCP Team Chronic Disease Visit Annual PCP Team Chronic Disease Visit [facility] Start: 04-08-2025 BP Controlled (<130/80) BP Controlled (<130/80) [facility] in Start: 04-04-2025 Complete blood count Hemoglobin/Hematocrit [facility] Start: 04-04-2025 Creatinine measurement Serum Creatinine [facility] Start: 03-26-2025 Annual PCP Team Chronic Disease Visit Annual PCP Team Chronic Disease Visit [facility] Start: 03-26-2025 BP Controlled (<130/80) BP Controlled (<130/80) [facility] in Start: 03-26-2025 Covid-19 Vaccine () Covid-19 Vaccine () [facility] Comment on above: Postponed from 12/14/2023 (Declined at t his time) Start: 03-26-2025 Shingrix Vaccine (1 of 2) Shingrix Vaccine (1 of 2) [facility] Comment on above: Postponed from 1993 (Declined at t his time) Start: 03-25-2025 BP Controlled (<130/80) BP Controlled (<130/80) [facility] inic Start: 03-25-2025 Complete blood count Hemoglobin/Hematocrit [facility] Start: 03-25-2025 Creatinine measurement Serum Creatinine [facility] Start: 01-21-2025 End: 01-21-2025 Patient encounter procedure 01/21/2025 3:40 PM EDT Office Visit [facility] [place] [address] [employer], [place] [id number] Carolina Landeros, [employer] OFFICIAL.COURT ORDERLY [address] [place], [place] [id number] 6 month follow up [facility] [place] Comment on above: 6 month follow up Start: 01-21-2025 End: 04-22-2025 CBC W Auto Differential panel - Blood [facility] Comment on above: Expected: 01/21/2025, Expires: Start: 01-21-2025 End: 04-22-2025 Cobalamin (Vitamin B12) [Mass/volume] in Serum or Plasma [facility] Comment on above: Expected: 01/21/2025, Expires: Start: 01-21-2025 End: 04-22-2025 Comprehensive metabolic 2000 panel - Serum or Plasma [facility] Work Phone: Comment on above: Expected: 01/21/2025, Expires: Start: 01-21-2025 End: 04-22-2025 Hemoglobin A1c in Blood [facility] Comment on above: Expected: 01/21/2025, Expires: Start: 01-21-2025 End: 04-22-2025 LIPID PANEL, NONFASTING [facility] Comment on above: Expected: 01/21/2025, Expires: Start: 01-21-2025 End: 04-22-2025 Magnesium [Mass/volume] in Serum or Plasma [facility] Comment on above: Expected: 01/21/2025, Expires: Start: 01-13-2025 End: 01-13-2025 Patient encounter procedure 01/13/2025 10:40 AM EDT Office Visit [facility] [place] [address] [place] [id number] Guanakito Reno MD [address] [place] [place] [id number] 6 month follow up [facility] [place] Comment on above: 6 month follow up Start: 01-09-2025 Hemoglobin A1c measurement HbA1C [facility] Start: 12-21-2024 BP Controlled (<130/80) BP Controlled (<130/80) [facility] Start: 10-16-2024 Advance Directive Discussion Advance Directive Discussion [facility] Start: 10-16-2024 Medicare Advantage Annual Wellness Visit Medicare Advantage Annual Wellness Visit [facility] Start: 10-04-2024 Hemoglobin A1c measurement HbA1C [facility] Start: 08-14-2024 3 comp foot exam completed Diabetic Foot Exam [facility] Start: 08-14-2024 Annual PCP Team Chronic Disease Visit Annual PCP Team Chronic Disease Visit [facility] Start: 08-14-2024 BP Controlled (<130/80) BP Controlled (<130/80) [facility] Start: 08-14-2024 Complete blood count Hemoglobin/Hematocrit [facility] Start: 08-14-2024 Creatinine measurement Serum Creatinine [facility] Start: 08-14-2024 Diabetic foot examination Diabetic Foot Exam [facility] Start: 08-14-2024 Hemoglobin/Hematocrit Hemoglobin/Hematocrit [facility] Start: 08-14-2024 Hepatitis B surface antibody level LDL Cholesterol [facility] Start: 08-14-2024 Hepatitis B Vaccine (1 of 3 - Risk 3-dose series) Hepatitis B Vaccine (1 of 3 - Risk 3-dose series) [facility] Comment on above: Postponed from 2003 (Declined at t his time) Start: 08-14-2024 RSV Vaccine (1 - 1-dose 60+ series) RSV Vaccine (1 - 1-dose 60+ series) [facility] Comment on above: Postponed from 2003 (Declined at t his time) Start: 08-14-2024 RSV Vaccine (1 - 1-dose 75+ series) RSV Vaccine (1 - 1-dose 75+ series) [facility] Comment on above: Postponed from 2018 (Declined at t his time) Start: 08-14-2024 Serum Creatinine Serum Creatinine [facility] Start: 08-06-2024 End: 08-06-2024 Patient encounter procedure 08/06/2024 1:00 PM EDT Office Visit [facility] [address] [place], [place] [id number] Laura Iraheta MD [address] [facility] [address] [place], [place] [id number] Referral from Josselyn Mayer - carotid stenosis 05/02/24 Carotid US [facility] Comment on above: Referral from Josselyn Mayer - carotid s tenosis 05/02/24 Carotid US Start: 07-29-2024 End: 07-29-2024 ambulatory 07/29/2024 11:15 AM EDT Results Only [facility] [address] [place] [address] [facility] Start: 07-23-2024 End: 07-23-2024 Admission to same day surgery center 07/23/2024 10:00 AM EDT - 07/23/2024 11:30 AM EDT Surgery [facility] [address] [place] [address] Pam Reddy MD [address] [facility] [address] [place], [place] [id number] CORONARY CATH RIGHT/LEFT HEART ANGIO INTRAPROCEDURAL INJECT IMAGING SUPERVISIO/INTERPRETATIO N [facility] Comment on above: CORONARY CATH RIGHT/LEFT HEART ANGIO INT RAPROCEDURAL INJECT IMAGING SUPERVISIO/INTERPRETATION Start: 07-23-2024 End: 07-23-2024 R & l hrt cath winjx hrt art& l ventr img CORONARY CATH RIGHT/LEFT HEART ANGIO INTRAPROCEDURAL INJECT IMAGING SUPERVISIO/INTERPRETATIO N Valvular heart disease 07/23/2024 10:00 AM EDT [facility] Start: 07-23-2024 Subsequent hospital visit by physician 07/23/2024 10:00 AM EDT Hospital Encounter [facility] [address] [place] [address] Pam Reddy MD [address], [address] [place] [address] Valvular heart disease [I38] [facility] Comment on above: Valvular heart disease [I38] Start: 07-23-2024 End: 07-23-2024 Patient encounter procedure 07/23/2024 7:30 AM EDT Appointment RADIO [facility] [place] [address] 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 [...] atrial fibrillation (HCC) Expected: 07/15/2024, Expires: 10/14/2024 [facility] Work Phone: Comment on above: Expected: 07/15/2024, Expires: Start: 07-12-2024 End: 10-11-2024 CBC W Auto Differential panel - Blood [facility] Comment on above: Expected: 07/12/2024, Expires: Start: 07-12-2024 End: 10-11-2024 Comprehensive metabolic 2000 panel - Serum or Plasma [facility] Comment on above: Expected: 07/12/2024, Expires: Start: 07-12-2024 End: 10-11-2024 Hemoglobin A1c in Blood [facility] Work Phone: Comment on above: Expected: 07/12/2024, Expires: Start: 07-12-2024 End: 10-11-2024 LIPID PANEL, NONFASTING [facility] Comment on above: Expected: 07/12/2024, Expires: Start: 07-12-2024 End: 07-12-2024 Patient encounter procedure 07/12/2024 11:20 AM EDT Office Visit [facility] [place] [address] [place] [address] Guanakito Reno MD [address] [place], [place] [id number] 2 month follow up- stool sample,kidney and meds [facility] [place] Comment on above: 2 month follow up- stool sample,kidney a nd meds Start: 07-10-2024 End: 10-09-2024 Basic metabolic 2000 panel - Serum or Plasma BASIC METABOLIC PANEL Lab Routine Nonrheumatic aortic valve stenosis Expected: 07/10/2024, Expires: 10/09/2024 [facility] Comment on above: Expected: 07/10/2024, Expires: Start: 07-10-2024 End: 10-09-2024 CBC panel - Blood by Automated count COMPLETE BLOOD COUNT Lab Routine Nonrheumatic aortic valve stenosis Expected: 07/10/2024, Expires: 10/09/2024 [facility] Comment on above: Expected: 07/10/2024, Expires: Start: 07-10-2024 End: 10-09-2024 Natriuretic peptide.B prohormone N-Terminal [Mass/volume] in Serum or Plasma NT PRO BNP Lab Routine Nonrheumatic aortic valve stenosis Dyspnea on exertion Expected: 07/10/2024, Expires: 10/09/2024 [facility] Comment on above: Expected: 07/10/2024, Expires: Start: 07-10-2024 End: 10-09-2024 PT panel - Platelet poor plasma by Coagulation assay PROTHROMBIN TIME Lab Routine Nonrheumatic aortic valve stenosis Expected: 07/10/2024, Expires: 10/09/2024 [facility] Comment on above: Expected: 07/10/2024, Expires: Start: 07-10-2024 End: 07-10-2024 Patient encounter procedure [facility] Comment on above: Valve Clinic- Initial Visit- 5M Walk,EKG ,KCCQ Start: 06-16-2024 Covid-19 Vaccine () Covid-19 Vaccine () [facility] Start: 06-16-2024 Covid-19 Vaccine () Covid-19 Vaccine () [facility] Start: 06-16-2024 Influenza vaccination [facility] Start: 06-06-2024 End: 06-06-2024 Patient encounter procedure 06/06/2024 11:20 AM EDT Office Visit Family [facility] [address] [place] [address] Carolina Landeros APRN.COURT ORDERLY [address] [place] [address] Urgent care follow up Family [facility] Comment on above: Urgent care follow up Start: 05-06-2024 End: 05-06-2024 Patient encounter procedure 05/06/2024 5:40 PM EDT Office Visit [facility] Lin Brennan [address] [place] [address] Corrina Lennon APRN.COURT ORDERLY [address] [place] [address] 1 month follow up Family [facility] Comment on above: 1 month follow up Start: 05-02-2024 End: 05-02-2024 Patient encounter procedure Radiology Comment on above: Renal insufficiency [N28.9] History of carotid e ndarterectomy [Z98.890] Syncope, unspecified syncope type [R55]; Aortic valve disorder [I35.9] Start: 04-08-2024 End: 04-08-2024 Patient encounter procedure 04/08/2024 3:00 PM EDT Office Visit [facility] [place] [address] [place] [address] Corrina Lennon APRN.COURT ORDERLY [address] [place] [address] 2 w f/u [facility] [place] Comment on above: 2 w f/u Start: 04-08-2024 End: 03-25-2025 Echocardiography ECHO Cardiology Routine Syncope, unspecified syncope type Aortic valve disorder Expected: 04/08/2024, Expires: 03/25/2025 [facility] Comment on above: Expected: 04/08/2024, Expires: 5 Start: 04-05-2024 End: 07-05-2024 Basic metabolic 2000 panel - Serum or Plasma BASIC METABOLIC PANEL Lab Routine CKD (chronic kidney disease) stage 4, 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/min (HCC) Anemia, unspecified type Expected: 04/05/2024, Expires: 07/05/2024 [facility] Comment on above: Expected: 04/05/2024, Expires: 4 Start: 04-05-2024 End: 07-05-2024 CBC W Auto Differential panel - Blood COMPLETE BLOOD COUNT AND DIFFERENTIAL Lab Routine CKD (chronic kidney disease) stage 4, 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/min (HCC) Anemia, unspecified type Expected: 04/05/2024, Expires: 07/05/2024 [facility] Comment on above: Expected: 04/05/2024, Expires: 4 Start: 03-26-2024 End: 03-26-2024 Patient encounter procedure 03/26/2024 4:40 PM EDT Office Visit Family [facility] [address] [place] [address] Guanakito Reno MD [address] [place] [address] 3 month f/u Family [facility] Comment on above: 3 month f/u Start: 03-26-2024 End: 06-25-2024 Basic metabolic 2000 panel - Serum or Plasma BASIC METABOLIC PANEL Lab Routine Renal insufficiency Expected: 03/26/2024, Expires: 06/25/2024 [facility] Comment on above: Expected: 03/26/2024, Expires: 4 Start: 03-26-2024 End: 03-26-2025 CBC W Auto Differential panel - Blood COMPLETE BLOOD COUNT AND DIFFERENTIAL Lab Routine Anemia, unspecified type Expected: 03/26/2024, Expires: 03/26/2025 [facility] Comment on above: Expected: 03/26/2024, Expires: 5 Start: 03-26-2024 End: 03-26-2025 Cobalamin (Vitamin B12) [Mass/volume] in Serum or Plasma VITAMIN B12 Lab Routine Anemia, unspecified type Expected: 03/26/2024, Expires: 03/26/2025 [facility] Comment on above: Expected: 03/26/2024, Expires: 5 Start: 03-26-2024 End: 03-26-2025 Ferritin [Mass/volume] in Serum or Plasma FERRITIN Lab Routine Anemia, unspecified type Expected: 03/26/2024, Expires: 03/26/2025 [facility] Comment on above: Expected: 03/26/2024, Expires: 5 Start: 03-26-2024 End: 03-26-2025 Folate [Mass/volume] in Serum or Plasma FOLATE, SERUM Lab Routine Anemia, unspecified type Expected: 03/26/2024, Expires: 03/26/2025 [facility] Comment on above: Expected: 03/26/2024, Expires: 5 Start: 03-26-2024 End: 06-25-2024 Hemoglobin A1c in Blood HEMOGLOBIN A1C Lab Routine Type 2 diabetes mellitus with stage 3 chronic kidney disease, without long-term current use of insulin, unspecified whether stage 3a or 3b CKD (HCC) Expected: 03/26/2024, Expires: 06/25/2024 [facility] Comment on above: Expected: 03/26/2024, Expires: 4 Start: 03-26-2024 End: 03-26-2025 Hemoglobin.gastrointestin al.lower [Presence] in Stool by Immunoassay IMMUNOCHEMICAL FECAL OCCULT BLOOD TEST Lab Routine Anemia, unspecified type Expected: 03/26/2024, Expires: 03/26/2025 [facility] Comment on above: Expected: 03/26/2024, Expires: Start: 03-26-2024 End: 03-26-2025 Iron and Iron binding capacity panel - Serum or Plasma IRON AND TIBC Lab Routine Anemia, unspecified type Expected: 03/26/2024, Expires: 03/26/2025 [facility] Comment on above: Expected: 03/26/2024, Expires: Start: 03-25-2024 End: 03-25-2024 Patient encounter procedure 03/25/2024 2:40 PM EDT Office Visit Cardiology [address] [place] [id number] Pam Reddy MD [address], [address] [place] [address] 1 yr f/u Cardiology Comment on above: 1 yr f/u Start: 02-14-2024 BP CONTROLLED (<130/80) BP CONTROLLED (<130/80) [facility] Start: 02-13-2024 Hemoglobin A1c measurement HbA1C [facility] Start: 02-13-2024 Hemoglobin A1c/Hemoglobin.total in Blood HbA1C [facility] Start: 02-07-2024 3 comp foot exam completed DIABETIC FOOT EXAM [facility] Start: 02-07-2024 ANNUAL PCP TEAM CHRONIC DISEASE VISIT ANNUAL PCP TEAM CHRONIC DISEASE VISIT [facility] Start: 02-07-2024 BP CONTROLLED (<130/80) BP CONTROLLED (<130/80) [facility] in Start: 02-07-2024 SHINGRIX VACCINE (1 of 2) SHINGRIX VACCINE (1 of 2) [facility] Comment on above: Postponed from 1993 (Insurance Cov erage) Start: 12-14-2023 Covid-19 Vaccine () Covid-19 Vaccine () [facility] Start: 10-16-2023 Advance Directive Discussion Advance Directive Discussion [facility] Start: 10-04-2023 BP CONTROLLED (<130/80) BP CONTROLLED (<130/80) [facility] Start: 08-15-2023 End: 08-15-2024 Basic metabolic 2000 panel - Serum or Plasma BASIC METABOLIC PNL Lab Routine Renal insufficiency Expected: 08/15/2023, Expires: 08/15/2024 [facility] Work Phone: Comment on above: Expected: 08/15/2023, Expires: Start: 08-15-2023 BP CONTROLLED (<130/80) BP CONTROLLED (<130/80) [facility] Start: 08-15-2023 End: 11-14-2023 Urinalysis complete panel - Urine URINALYSIS, WITH MICROSCOPIC Lab Routine Renal insufficiency Expected: 08/15/2023, Expires: 11/14/2023 [facility] Work Phone: Comment on above: Expected: 08/15/2023, Expires: 4 Start: 06-16-2023 Covid-19 Vaccine ( season) Covid-19 Vaccine ( season) [facility] Start: 06-16-2023 Influenza vaccination [facility] Start: 06-08-2023 COVID-19 VACCINE (5 - Moderna series) COVID-19 VACCINE (5 - Moderna series) [facility] Start: 03-29-2023 BP CONTROLLED (<130/80) BP CONTROLLED (<130/80) [facility] Start: 02-20-2023 End: 02-14-2024 Echocardiography ECHO Cardiology Routine Syncope, unspecified syncope type Aortic valve disorder Expected: 02/20/2023, Expires: 02/14/2024 [facility] Work Phone: Comment on above: Expected: 02/20/2023, Expires: 4 Start: 02-06-2023 End: 04-08-2023 ALBUMIN/CREAT RATIO RND UR ALBUMIN/CREAT RATIO RND UR Lab Routine Type 2 diabetes mellitus with stage 3 chronic kidney disease, without long-term current use of insulin, unspecified whether stage 3a or 3b CKD (HCC) Expected: 02/06/2023, Expires: 04/08/2023 [facility] Work Phone: Comment on above: Expected: 02/06/2023, Expires: Start: 02-06-2023 End: 04-08-2023 CBC W Auto Differential panel - Blood CBC + DIFF Lab Routine Type 2 diabetes mellitus with stage 3 chronic kidney disease, without long-term current use of insulin, unspecified whether stage 3a or 3b CKD (HCC) Expected: 02/06/2023, Expires: 04/08/2023 [facility] Work Phone: Comment on above: Expected: 02/06/2023, Expires: Start: 02-06-2023 End: 04-08-2023 Comprehensive metabolic 2000 panel - Serum or Plasma COMP METABOLIC PANEL Lab Routine Type 2 diabetes mellitus with stage 3 chronic kidney disease, without long-term current use of insulin, unspecified whether stage 3a or 3b CKD (HCC) Expected: 02/06/2023, Expires: 04/08/2023 [facility] Work Phone: Comment on above: Expected: 02/06/2023, Expires: Start: 02-06-2023 End: 04-08-2023 Hemoglobin A1c in Blood HGB A1C Lab Routine Type 2 diabetes mellitus with stage 3 chronic kidney disease, without long-term current use of insulin, unspecified whether stage 3a or 3b CKD (HCC) Expected: 02/06/2023, Expires: 04/08/2023 [facility] Work Phone: Comment on above: Expected: 02/06/2023, Expires: Start: 02-06-2023 End: 04-08-2023 Lipid 1996 panel - Serum or Plasma LIPID PANEL BASIC Lab Routine Type 2 diabetes mellitus with stage 3 chronic kidney disease, without long-term current use of insulin, unspecified whether stage 3a or 3b CKD (HCC) Expected: 02/06/2023, Expires: 04/08/2023 [facility] [employer] Work Phone: Comment on above: Expected: 02/06/2023, Expires: 3 Start: 01-19-2023 ANNUAL PCP TEAM CHRONIC DISEASE VISIT ANNUAL PCP TEAM CHRONIC DISEASE VISIT [facility] Start: 01-19-2023 BP CONTROLLED (<130/80) BP CONTROLLED (<130/80) [facility] Start: 01-18-2023 HEMOGLOBIN/HEMATOCRIT HEMOGLOBIN/HEMATOCRIT [facility] Start: 01-18-2023 Hepatitis B screening URINE ALBUMIN:CREATININE RATIO [facility] Start: 01-18-2023 SERUM CREATININE SERUM CREATININE [facility] Start: 12-21-2022 Hepatitis B surface antibody level LDL CHOLESTEROL [facility] Start: 10-16-2022 ADVANCE DIRECTIVE DISCUSSION ADVANCE DIRECTIVE DISCUSSION [facility] Start: 08-22-2022 End: 08-15-2023 Echocardiography ECHO Cardiology Routine Nonrheumatic aortic valve stenosis Expected: 08/22/2022, Expires: 08/15/2023 [facility] Work Phone: Comment on above: Expected: 08/22/2022, Expires: 3 Start: 07-20-2022 Hemoglobin A1c/Hemoglobin.total in Blood HBA1C [facility] Start: 06-16-2022 Influenza vaccination [facility] Start: 04-12-2022 COVID-19 VACCINE (4 - Booster for Moderna series) COVID-19 VACCINE (4 - Booster for Moderna series) [facility] Start: 02-18-2022 End: 04-20-2022 Basic metabolic 2000 panel - Serum or Plasma BASIC METABOLIC PNL Lab Routine Essential hypertension with goal blood pressure less than 140/90 Expected: 02/18/2022, Expires: 04/20/2022 [facility] Work Phone: Comment on above: Expected: 02/18/2022, Expires: 2 Start: 02-07-2022 COVID-19 VACCINE (4 - Booster for Moderna series) COVID-19 VACCINE (4 - Booster for Moderna series) [facility] Start: 10-16-2021 ADVANCE DIRECTIVE DISCUSSION ADVANCE DIRECTIVE DISCUSSION [facility] Start: 01-18-2020 3 comp foot exam completed DIABETIC FOOT EXAM [facility] Start: 12-05-2019 Glaucoma screening Dilated Retinal Exam [facility] Start: 12-05-2019 Hepatitis C antibody, confirmatory test DILATED RETINAL EXAM [facility] Start: 2018 RSV Vaccine (1 - 1-dose 75+ series) RSV Vaccine (1 - 1-dose 75+ series) [facility] Start: 2003 Hepatitis B Vaccine (1 of 3 - Risk 3-dose series) Hepatitis B Vaccine (1 of 3 - Risk 3-dose series) [facility] Start: 1993 SHINGRIX VACCINE (1 of 2) SHINGRIX VACCINE (1 of 2) [facility] Start: 1961 BP Controlled (<130/80) BP Controlled (<130/80) [facility] in Start: 1961 HEPATITIS C SCREENING HEPATITIS C SCREENING [facility] Start: 1949 PNEUMOCOCCAL: 65+ (1 - PCV) PNEUMOCOCCAL: 65+ (1 - PCV) [facility] End: 08-09-2025 CTA Abdominal vessels and Pelvis vessels W contrast IV CTA ABD/PEL W IVCON Radiology Routine Nonrheumatic aortic valve stenosis Encounter for preprocedural cardiovascular examination 1 Occurrences starting 07/10/2024 until 08/09/2025 [facility] Work Phone: Comment on above: 1 Occurrences starting 07/10/2024 until 08/09/2025 End: 07-23-2024 CTA Abdominal vessels and Pelvis vessels W contrast IV [facility] Work Phone: Comment on above: 1 Occurrences starting 07/23/2024 until 07/23/2024 End: 08-09-2025 CTA Chest vessels WO and W contrast IV CTA CHEST (GATED) WO/W IVCON Radiology Routine Nonrheumatic aortic valve stenosis Encounter for preprocedural cardiovascular examination 1 Occurrences starting 07/10/2024 until 08/09/2025 [facility] Comment on above: 1 Occurrences starting 07/10/2024 until 08/09/2025 End: 07-23-2024 CTA Chest vessels WO and W contrast IV [facility] Comment on above: 1 Occurrences starting 07/23/2024 until 07/23/2024 ECG COMPLETE ECG COMPLETE ECG Routine Syncope, unspecified syncope type Aortic valve disorder Paroxysmal atrial fibrillation (HCC) Ordered: 03/21/2024 [facility] Work Phone: Comment on above: Ordered: 03/21/2024 End: 07-10-2025 EXTENDED WEAR SUPERVISORY IT SPECIALIST PATCH EXTENDED WEAR SUPERVISORY IT SPECIALIST PATCH ECG Routine Nonrheumatic aortic valve stenosis 1 Occurrences starting 07/10/2024 until 07/10/2025 [facility] Comment on above: 1 Occurrences starting 07/10/2024 until 07/10/2025 End: 07-10-2024 EXTENDED WEAR SUPERVISORY IT SPECIALIST PATCH EXTENDED WEAR SUPERVISORY IT SPECIALIST PATCH ECG Routine Nonrheumatic aortic valve stenosis 1 Occurrences starting 07/10/2024 until 07/10/2024 [facility] Work Phone: Comment on above: 1 Occurrences starting 07/10/2024 until 07/10/2024 Hemoglobin.tony lopezlower [Presence] in Stool by Immunoassay IMMUNOCHEMICAL FECAL OCCULT BLOOD TEST Lab Routine CKD (chronic kidney disease) stage 4, 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/min ([facility]) Anemia, unspecified type Ordered: 04/05/2024 [facility] Work Phone: Comment on above: Ordered: 04/05/2024 Hemoglobin.tony lopezlower [Presence] in Stool by Immunoassay IMMUNOCHEMICAL FECAL OCCULT BLOOD TEST Lab Routine Screen for colon cancer Ordered: 2024 [facility] Work Phone: Comment on above: Ordered: 2024 OUTSIDE VENDOR CARDI AC OUTPATIENT EXTENDED RHYTHM RECORDING (WITHOUT TELEMETRY) OUTSIDE VENDOR CARDIAC OUTPATIENT EXTENDED RHYTHM RECORDING (WITHOUT TELEMETRY) Holter Routine Syncope, unspecified syncope type Ordered: 02/13/2023 [facility] Work Phone: Comment on above: Ordered: 02/13/2023 Removal impacted cer umen irrigation/lvg unilat AMBULATORY EAR LAVAGE/IRRIGATION Procedures Routine Bilateral impacted cerumen Ordered: 01/21/2025 [facility] Comment on above: Ordered: 01/21/2025 End: 03-26-2025 US Carotid arteries - bilateral US CAROTID ARTERIES GRAY [facility] Vascular Lab Routine History of carotid endarterectomy 1 Occurrences starting 03/26/2024 until 03/26/2025 [facility] Work Phone: Comment on above: 1 Occurrences starting 03/26/2024 until 03/26/2025 End: 03-16-2023 US CAROTID ARTERIES GRAY VAS LAB US CAROTID ARTERIES GRAY VAS LAB Vascular Lab Routine Bilateral carotid artery stenosis 1 Occurrences starting 03/18/2022 until 03/16/2023 [facility] Work Phone: Comment on above: 1 Occurrences starting 03/18/2022 until 03/16/2023 End: 10-04-2023 US CAROTID ARTERIES GRAY VAS LAB US CAROTID ARTERIES GRAY VAS LAB Vascular Lab Routine Bilateral carotid artery stenosis 1 Occurrences starting 10/04/2022 until 10/04/2023 [facility] Work Phone: Comment on above: 1 Occurrences starting 10/04/2022 until 10/04/2023 End: 04-25-2025 US Kidney - bilateral and Urinary bladder US KIDNEY/BLADDER Radiology Routine Renal insufficiency 1 Occurrences starting 03/26/2024 until 04/25/2025 [facility] Comment on above: 1 Occurrences starting 03/26/2024 until 04/25/2025 [facility] Immunizations Immunization Date Immunization Notes Care Provider [facility] 07-12-2024 COVID-19 vaccine, ag e 12+ yr (CoupFlip-BIONTECH [facility]) Guanakito Reno MD Work Phone: [facility] 07-12-2024 influenza, high dose seasonal, preservative-free Guanakito Reno MD Work Phone: [facility] 07-12-2024 influenza virus vacc ine, unspecified formulation Guanakito Reno MD Work Phone: [facility] 08-14-2023 COVID-19 vaccine, ag e 12+ yr, season (Selphee) Guanakito Reno MD Work Phone: [facility] 08-14-2023 influenza (HD-IIV4) vaccine, age 65+ yr, high dose, quadrivalent, PF (FLUZONE HIGH-DOSE) Guanakito Reno MD Work Phone: [facility] 08-14-2023 influenza virus vacc ine, unspecified formulation Ruthie Cuevas [facility] 02-06-2023 COVID-19 vaccine, ag e 12+ yr, bivalent (CoupFlip-GTI) Guanakito Reno MD Work Phone: [facility] 12-13-2021 COVID-19 vaccine, ag e 12+ yr (PFIZER-BIONTECH - YANES TOP) Guanakito Reno MD Work Phone: [facility] 04-22-2021 tetanus and diphther ia toxoids, adsorbed, preservative free, for adult use (5 Lf of tetanus toxoid and 2 Lf of diphtheria toxoid) Guanakito Reno MD Work Phone: [facility] 02-16-2021 COVID-19 vaccine, fu ll dose (MODERNA) Guanakito Reno MD Work Phone: [facility] Work Phone: 01-19-2021 COVID-19 vaccine, fu ll dose (MODERNA) Guanakito Reno MD Work Phone: [facility] Work Phone: 07-18-2019 influenza, high dose seasonal, preservative-free Guanakito Reno MD Work Phone: [facility] Work Phone: 07-18-2019 influenza virus vacc ine, unspecified formulation Lizette Cardenas RN [facility] 09-15-2017 influenza, high dose seasonal, preservative-free Guanakito Reno MD Work Phone: [facility] 08-11-2016 influenza, high dose seasonal, preservative-free Guanakito Reno MD Work Phone: [facility] 08-11-2016 pneumococcal polysaccharide vaccine, 23 valent Guanakito Reno MD Work Phone: [facility] 08-10-2015 influenza, high dose seasonal, preservative-free Guanakito Reno MD Work Phone: [facility] 04-09-2015 pneumococcal conjuga te vaccine, 13 valent Guanakito Reno MD Work Phone: [facility] 10-21-2013 influenza virus vacc ine, unspecified formulation Guanakito Reno MD Work Phone: [facility] 08-08-2012 influenza virus vacc ine, unspecified formulation Guanakito Reno MD Work Phone: [facility] Work Phone: 10-12-2005 pneumococcal polysaccharide vaccine, 23 valent Guanakito Reno MD Work Phone: [facility] Work Phone: 12-02-2003 diphtheria and tetan us toxoids, adsorbed for pediatric use Guanakito Reno MD Work Phone: [facility] Work Phone: Payers Date Payer Category Payer Self-pay 2024 Unknown [id number] 2019 Medicare UHC AAR MEDICAR E [facility] MEDICARE O [id number] 2019-Present [phone] [address] [place] [id number] [facility] [id number] 2019 Medicare UHC AAR MEDICAR E [facility] MEDICARE O [id number] 2019-Present [phone] [place] [id number] [facility] [id number] 2019 Medicare (Managed Care) [facility] MEDICARE HMO [id number] 2019 Medicare [id number] 2009 Unknown [id number] 2008 Medicare [id number] Medicare [id number] Unknown [id number]. 462 Unknown [id number]. 462 Unknown [id number] .[id number]. 462 Unknown [id number] .[id number]. 462 Unknown [id number] .[id number]. 462 Unknown [id number] .[id number]. 462 Unknown [id number] .[id number]. 462 Unknown [id number] .[id number]. 462 Unknown [id number] .[id number]. 462 Unknown [id number]. 462 Unknown [id number]. 462 Unknown [id number] .[id number]. 462 Unknown [id number]. 462 Unknown [id number] .[id number]. 462 Unknown [id number] .[id number]. 462 Unknown [id number] .[id number]. 462 Unknown [id number]. 462 Unknown [id number]. 462 Unknown [id number]. 462 Unknown [id number] 462 Social History Date Type Detail Facility Start: 08-10-2015 End: 03-06-2025 Tobacco smoking status NHIS Ex-smoker [facility] Start: 12-05-1975 End: 12-05-1985 History of tobacco use Current smoker [facility] Start: 12-05-1975 End: 12-05-1985 History of tobacco use Cigarette Smoker [facility] Start: 01-19-2022 End: 03-06-2025 Alcohol intake Current non-drinker of alcohol (finding) [facility] Start: 10-26-2020 History SDOH Alcohol Frequency 1 [facility] Start: 10-26-2020 History SDOH Alcohol Std Drinks 98 [facility] Start: 05-15-2019 History SDOH Alcohol Comment none now; social in past [facility] Start: 10-26-2020 History SDOH Social Connections Get Together 2 [facility] Start: 10-26-2020 History SDOH Social Connections Living 4 [facility] Start: 10-26-2020 History SDOH Physica l Activity DPW 0 [facility] Start: 10-26-2020 History SDOH Financial 5 [facility] Start: 10-26-2020 Education 14 [facility] Start: 1945 Sex Assigned At Not on file [facility] Start: 01-09-2022 End: 08-15-2022 Exposure to SARS-CoV-2 (event) Not sure [facility] Start: 03-22-2022 End: 04-01-2022 Exposure to SARS-CoV-2 (event) Unable to assess [facility] Work Phone: Start: 08-10-2015 End: 04-11-2023 Cigarettes smoked current (pack per day) - Reported 2 [facility] Start: 08-10-2015 End: 06-05-2024 Tobacco use and exposure Smokeless tobacco non-user [facility] Start: 10-26-2020 End: 04-11-2023 Social connection and isolation panel [facility] Do you belong to any clubs or organizations such as restorationism groups, unions, fraternal or athletic groups, or school groups? No [facility] Are you now , , , , never or living with a partner? [facility] How often to you hav e a drink containing alcohol? Never [facility] How many standard dr inks containing alcohol do you have on a typical day? Patient refused [facility] Do you feel stress - tense, restless, nervous, or anxious, or unable to sleep at night because your mind is troubled all the time - these days [OSQ] Only a little [facility] (I/We) worried vannesa er (my/our) food would run out before (I/we) got money to buy more. Never true [facility] Start: 1945 Sex Assigned At Male [facility] Medical Equipment Procedure Code Equipment Code Equipment Origin al Text Equipment Identifier Dates [id number], [id number] Start: 11-11-2011 Comment on above: Test blood sugar(s) one times daily. Dx: 250.00. Insulin: No Test blood sugar(s) one time daily. Dx: 250.00. Insulin: No Goals Date Patient Goal Desired Activity /State Personal health goal Functional Status Date Assessment Result Facility 04-09-2015 Are you deaf, or do you have serious difficulty hearing No 04/09/2015 11:20 AM Stephany Welch MA No [facility] 04-09-2015 Are you blind, or do you have serious difficulty seeing, even when wearing glasses No 04/09/2015 11:20 AM Stephany Welch MA No [facility] 04-09-2015 Do you have serious difficulty walking or climbing stairs No 04/09/2015 11:20 AM Stephany Welch MA No [facility] 04-09-2015 Do you have difficul ty dressing or bathing No 04/09/2015 11:20 AM Stephany Welch MA [facility] 04-09-2015 Because of a physica l, mental, or emotional condition, do you have difficulty doing errands alone such as visiting a physician's office or shopping No 04/09/2015 11:20 AM EDT Stephany Graves MA No [facility] Mental Status Date Assessment Result Facility 04-09-2015 Because of a physica l, mental, or emotional condition, do you have serious difficulty concentrating, remembering, or making decisions No 04/09/2015 11:20 AM EDT Stephany Graves MA No [facility] Clinical Notes 03-29-2011 to 04-15-2025 Telephone Encounter - [facility] - 04/15/2025 9:09 AM EDTTelephone Encounter - [facility] - 04/15/2025 9:09 AM EDTTelephone Encounter - Leidy Malone RN - 04/14/2025 3:18 PM EDT Note Date & Type Note Facility 04-15-2025 Telephone encount er Note [facility] Anticoagulation Episode Summary Anticoagulation Care Providers Provider Role Specialty Phone number Guanakito Reno MD [facility] [phone] Cal Mitchell is a 79 year old [...] Pharmacy Anticoagulation Clinic Pharmacy Anticoagulation Clinic Pager: [phone]. [facility] 04-15-2025 Miscellaneous Notes Formattin g of this note is different from the original. [facility] Anticoagulation Episode Summary Anticoagulation Care Providers Provider Role Specialty Phone number Guanakito Rneo MD [facility] [phone] Cal Mitchell is a 79 year old [...] Pharmacy Anticoagulation Clinic Pharmacy Anticoagulation Clinic Pager: [phone]. documented in this encounter [facility] 04-14-2025 Telephone encount er Note Gustavo calls back and notified of provider recommendation below. Voices understanding. Leidy Malone RN [facility] 04-14-2025 Miscellaneous Notes Formattin g of this note might be different from the original. Gustavo calls back and notified of provider recommendation below. Voices understanding. Leidy Malone RN Phoned Gustavo left message to return call and ask to speak to a nurse. yes Patient son in law Gustavo calling he has been giving the patient Tylenol 500 mg two tablets twice daily since his fracture right shoulder at almost the end of February. He is asking if it is alright that they are still giving it to him? Please advise documented in this encounter [facility] 04-14-2025 Telephone encount er Note Phoned Gustavo left message to return call and ask to speak to a nurse. [facility] 04-14-2025 Telephone encount er Note yes [facility] 04-14-2025 Telephone encount er Note Patient son in law Chen calling he has been giving the patient Tylenol 500 mg two tablets twice daily since his fracture right shoulder at almost the end of February. He is asking if it is alright that they are still giving it to him? Please advise [facility] 04-08-2025 Telephone encount er Note The following approved medication requests have been transmitted electronically. Requested Prescriptions Pending Prescriptions Disp Refills warfarin (COUMADIN) 5 mg tablet 90 tablet 3 Sig: Take 1 tablet by mouth once daily. warfarin (COUMADIN) 5 mg tablet 30 tablet 0 Sig: Take 1 tablet by mouth once daily. Carolina Landeros APRN.COURT ORDERLY [facility] 04-08-2025 Miscellaneous Notes Formattin g of [...] 2025 2:33 PM documented in this encounter [facility] 04-08-2025 Telephone encount er Note Prescription [...] Meyer LPN April 08, 2025 2:38 PM [facility] 04-08-2025 Miscellaneous Notes Formattin g of [...] 2025 2:38 PM documented in this encounter [facility] 04-08-2025 Telephone encount er Note Prescription [...] Meyer LPN April 08, 2025 2:33 PM [facility] 04-08-2025 Evaluation note Diagnosis Hypertensive kidney disease with stage 3 chronic kidney disease, unspecified whether stage 3a or 3b CKD (HCC) Type 2 diabetes mellitus with stage 3 chronic kidney disease, without long-term current use of insulin, unspecified whether stage 3a or 3b CKD (HCC) Chronic renal disease, stage IV (HCC) Chronic kidney disease, Stage IV (severe) documented in this encounter [facility]06-13-2025 Telephone encounter Note* Telephone Encounter - Niels Rodriges RN - 03/28/2025 1:04 PM EDT Faxed recent ov notes to [facility] per daughter, January request. . January reports she talked to [facility] about patient going to live there and [facility] instructed her to have pcp office send an H & P to them for review. [facility]06-13-2025 Miscellaneous Notes* Telephone Encounter - Niels Rodriges RN - 03/28/2025 1:04 PM EDT Faxed recent ov notes to [facility] per daughter, January request. . January reports she [place] [facility] [place] [facility] and [facility] instructed her to have pcp office send an H & P to them for review. documented in this encounterZ[facility]06[facility] Telephone encounter Note * Telephone Encounter - Alejandro Molina RPh - 03/24/2025 10:[address] [facility] Anticoagulation Episode Summary Anticoagulation Care Providers Provider Role Specialty Phone number Guanakito Reno MD Responsible [facility] [phone] Cal Mitchell is a 79 year old [...] instructed to call [facility] at [phone] with any questionsor concerns. Alejandro Molina RPh Clinical Pharmacist, Pharmacy Anticoagulation Clinic [facility] Pager: [phone] [facility]06-09-2025 Miscellaneous Notes* Telephone Encounter - Alejandro Molina RPh - 03/24/2025 10:[address] [facility] Anticoagulation Episode Summary Anticoagulation Care Providers Provider Role Specialty Phone number Guanakito Reno MD [facility] [phone] Cal Mitchell is a 79 year old [...] instructed to call [facility] at [phone] with any questionsor concerns. Alejandro Molina RPh Clinical Pharmacist, Pharmacy Anticoagulation Clinic [facility] Pager: [phone] documented in this encounterZanesville City Hospital05-23-2025 Evaluation note* Diagnosis Onset Date Resolution Status Admit Date Closed fracture of right pro ximal humerus acute March 07, 2025 1 2:49pm [facility] [place] [place] [facility] Work Phone: 1(864) 977-170605-23-2025 Evaluation note* Diagnosis Onset Date Resolution Status Admit Date Closed fracture of right proximal humerus acute March 07, 2025 12:49pm Closed fracture of right proximal humerus acute May 02, 2025 10:11am [facility] Work Phone: [phone] NoteHNO ID: [id number] Author: CAROLINA LANDEROS APRN.KOURTNEY Service: ? Author Type: Nurse Practitioner [...] in the driveway yesterday. - Described as slightly displaced. - Pain severity rated as 5/10 at rest and 9-10/10 with movement. - Currently taking [place] for pain management. - Denies pain elsewhere [...] 250.00. Insulin: No Lancets (ONE TOUCH DELICA) [facility] [place]ancets Test blood sugar(s) one time daily. 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 Jmimy Crarizales [facility] Clinical Pharmacist, Pharmacy Anticoagulation Clinic Pharmacy Anticoagulation Clinic Pager: [phone]. [facility]05-08-2025 Miscellaneous Notes* Telephone Encounter - Jimmy Carrizales RPh - 02/20/2025 8:59 AM EDT [facility] Anticoagulation Episode Summary Anticoagulation Care Providers Provider Role Specialty Phone number Guanakito Reno MD [facility] Family Medicine [phone] Cal Mitchell is a 79 year old [...] 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: care home (current) use of anticoagulants Paroxysmal atrial fibrillation [...] missed any doses of warfarin. Jimmy Carrizales [facility] Clinical Pharmacist, Pharmacy Anticoagulation Clinic Pharm[facility] Pager: [phone]. documented in this encounterZanesville City Hospital04-18-2025 Telephone encounter Note * Telephone Encounter - Kamran Ayon RPh - 01/31/2025 12:43 PM EDT [facility] Anticoagulation Episode Summary Anticoagulation Care Providers Provider Role Specialty Phone number Guanakito Reno MD 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 documented in this encounterZanesville City Hospital04-10-2025 Progress note* Result Encounter Note - [...] levels, magnesium, and B12 are all normal. [facility]04-10-2025 Miscellaneous Notes* Result Encounter Note - [...] B12 are all normal. documented in this encounterZanesville City Hospital04-08-2025 NoteHNO ID: [id number] Author: GEOVANNA HINDS MA Service: ? Author Type: Manager Android Type: Progress Notes Filed: 01/21/2025 17:08 Note [...] Geovanna Hinds MA January 21, 2025 5:08 [facility]04-08-2025 History of Present illness Narrative* Geovanna [...] 21, 2025 5:08 PM * Carolina Landeros APRN.[facility] - 01/21/2025 3:43 PM EDT This [...] taking lisinopril Monitors bp at home: Yes. [place] checks it, ok there Denies side effects: [...] No oropharyngeal exudate. Eyes: Comments: Conjunctiva gray. Garrochales and itchy Cardiovascular: Rate and Rhythm: Normal [...] MG TABLET - COMPREHENSIVE METABOLIC PANEL 12. care home (current) use of anticoagulants - ICD9: V58.61, [...] scheduled or as needed for worsening/no improvement. \ Carolina Landeros APRN.CNP documented in this encounterZanesville City Hospital04-08-2025 Note* Addendum Note - Carolina Landeros APRN.CNP - 01/21/2025 4:54 PM EDTAddended by: CAROLINA LANDEROS on: 01/21/2025 04:54 PM Modules accepted: Orders [facility]04-08-2025 Miscellaneous Notes* Addendum Note - Carolina Landeros APRN.CNP - 01/21/2025 4:54 PM EDTAddended by: CAROLINA LANDEROS on: 01/21/2025 04:54 PM Modules accepted: Orders * Addendum Note - Geovanna Hinds MA - 01/21/2025 4:33 PM EDTAddended by: GEOVANNA HINDS on: 01/21/2025 04:33 PM Modules accepted: Orders documented in this encounterZanesville City Hospital04-08-2025 Note* Addendum Note - Geovanna Hinds MA - 01/21/2025 4:33 PM EDTAddended by: GEOVANNA HINDS on: 01/21/2025 04:33 PM Modules accepted: Orders [facility]04-08-2025 Instructions* Patient Instructions* Carolina Landeros APRN.CNP [...] up in 6 months documented in this encounterZanesville City Hospital04-08-2025 NoteHNO ID: [id number] Author: CAROLINA LANDEROS APRN.CNP Service: ? Author [...] taking lisinopril Monitors bp at home: Yes. [place] checks it, ok there Denies side effects: [...] 250.00. Insulin: No Lancets (ONE TOUCH DELICA) [facility] [place] Test blood sugar(s) one time daily. [...] 08, 2025 2:53 PM documented in this encounterZanesville City Hospital03-26-2025 Telephone encounter Note * Telephone Encounter [...] Barrow LPN January 08, 2025 2:53 PM [facility]03-26-2025 Telephone encounter Note* Telephone Encounter - Ruthie Cuevas [facility] - 01/08/2025 8:51 AM EDT [facility]ulatory [facility]tico[facility] Clinic Anticoagulation Episode Summary Anticoagulation Care Providers Provider Role Specialty Phone number Guanakito Reno MD [facility] Family Medicine [phone] Cal Mitchell is a 79 year old [...] 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: care home (current) use of anticoagulants Paroxysmal atrial fibrillation [...] Pharmacy Anticoagulation Clinic Pharmacy Anticoagulation Clinic Pager: [phone]. [facility]03-26-2025 Miscellaneous Notes* Telephone Encounter - Ruthie Cuevas RPh - 01/08/2025 8:51 AM EDT [facility] Anticoagulation Episode Summary Anticoagulation Care Providers Provider Role Specialty Phone number Guanakito Reno MD [facility] [phone] Cal Mitchell is a 79 year old [...] 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: care home (current) use of anticoagulants Paroxysmal atrial fibrillation [...] Pharmacy Anticoagulation Clinic Pharmacy Antico[facility] Clinic Pager: [phone]. documented in this encounterZanesville City Hospital03-26-2025 Evaluation note* Diagnosis Hypertensive kidney disease with stage 3 chronic kidney disease, unspecified whether stage 3a or 3b CKD (HCC) documented in this encounter [facility]03-17-2025 Telephone encounter Note* Telephone Encounter - Octavio (TalentSpringRuben Granados - 12/30/2024 9:15 AM EDT [facility] called regarding INR result for patient. Result has been addressed below, no further action needed. Ruben Cunningham Technical Support Intern (crew leader gluing) Pharmacy Anticoagulation Clinic [facility]03-17-2025 Miscellaneous Notes* Telephone Encounter - Octavio JansenTalentSpringRuben Granados - 12/30/2024 9:15 AM EDT [facility] called regarding INR result for patient. Result has been addressed below, no further action needed. Ruben Cunningham Technical Support Intern (crew leader gluing) [facility]acy Anticoagulation Clinic * Telephone Encounter - Twin Cole RPh - 12/30/2024 9:12 AM EDT [facility] Antico[facility] Clinic Anticoagulation Episode Summary Anticoagulation Care Providers Provider Role Specialty Phone number Guanakito Reno MD [facility] [phone] Cal Mitchell is a 79 year old [...] Pharmacy Anticoagulation Clinic Pharmacy Anticoagulation Clinic Pager: [phone]. documented in this encounterZanesville City Hospital03-17-2025 Telephone encounter Note * Telephone Encounter - Twin Cole RPh - 12/30/2024 9:12 AM EDT [facility]ticoagulation [facility] Anticoagulation Episode Summary Anticoagulation Care Providers Provider Role Specialty Phone number Guanakito Reno MD [facility] [phone] Cal Mitchell is a 79 year old [...] Pharmacy Anticoagulation Clinic Pharmacy Anticoagulation Clinic Pager: [phone]. [facility]02-26-2025 Telephone encounter Note* Telephone Encounter - Jimmy Carirzales RP - 12/11/2024 9:43 AM EST [facility] Ambulatory [facility] Antico[facility] Clinic Anticoagulation Episode Summary Anticoagulation Care Providers Provider Role Specialty Phone number Guanakito Reno MD [facility] Family Medicine [phone] Cal Mitchell is a 79 year old [...] 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: care home (current) use of anticoagulants Paroxysmal atrial fibrillation [...] Pharmacy Anticoagulation Clinic Pharmacy Anticoagulation Clinic Pager: [phone]. [facility]02-26-2025 Miscellaneous Notes* Telephone Encounter - Jimmy Carrizales RPh - 12/11/2024 9:43 AM EST [facility] Anticoagulation Episode Summary Anticoagulation Care Providers Provider Role Specialty Phone number Guanakito Reno MD [facility] Medicine [phone] Cal Mitchell is a 79 year old [...] 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: care home (current) use of anticoagulants Paroxysmal atrial fibrillation [...] Pharmacy Anticoagulation Clinic Pharmacy Anticoagulation Clinic Pager: [phone]. documented in this encounterZanesville City Hospital02-11-2025 Telephone encounter Note * Telephone Encounter - Twin Cole [facility] - 11/26/2024 5:26 PM EST [facility] Anticoagulation Episode Summary Anticoagulation Care Providers Provider Role Specialty Phone number Guanakito Reno MD [facility] [phone] Cal Mitchell is a 79 year old [...] Pharmacy Anticoagulation Clinic Pharmacy Anticoagulation Clinic Pager: [phone]. [facility]02-11-2025 Miscellaneous Notes* Telephone Encounter - Twin Cole RPh - 11/26/2024 5:26 PM EST [facility]ulatory [facility] Anticoagulation Clinic Anticoagulation Episode Summary Anticoagulation Care Providers Provider Role Specialty Phone number Guanakito Reno MD [facility] Family Medicine [phone] Cla Mitchell is a 79 year old year [...] Pharmacy Anticoagulation Clinic Pharmacy Anticoagulation Clinic Pager: [phone]. documented in this encounterZanesville City Hospital01-13-2025 Telephone encounter Note * Telephone Encounter - Alejandro Molina RPh - 10/28/2024 5:06 PM EST [facility] Anticoagulation Episode Summary Anticoagulation Care Providers Provider Role Specialty Phone number Guanakito Reno MD [facility] Family Medicine [phone] Cal Mitchell is a 79 year old [...] instructed to call [facility] at [phone] with any questionsor concerns. Alejandro Molina RPh Clinical Pharmacist, Pharmacy Anticoagulation Clinic Pharmacy Anticoagulation Clinic Pager: [phone] [facility]01-13-2025 Miscellaneous Notes* Telephone Encounter - Alejandro oMlina RPh - 10/28/2024 5:06 PM EST [facility] An[facility] Anticoagulation Episode Summary Anticoagulation Care Providers Provider Role Specialty Phone number Guanakito Reno MD [facility] [phone] Cal Mitchell is a 79 year old [...] instructed to call [facility] at [phone] with any questionsor concerns. Alejandro Molina RPh Clinical Pharmacist, Pharmacy Anticoagulation Clinic Pharmacy Anticoagulation Clinic Pager: [phone] documented in this encounterZanesville City Hospital01-06-2025 Telephone encounter Note * Telephone Encounter - Ashley De Dios RN - 10/21/2024 2:58 PM EST Pt ALEC Chen called and is notified of providers message. He voices understanding. Ashley De Dios RN [facility]01-06-2025 Miscellaneous Notes* Telephone Encounter - Ashley [...] Please call and advise. documented in this encounterZanesville City Hospital01-06-2025 Telephone encounter Note * Telephone Encounter - Guanakito Reno MD - 10/21/2024 2:25 PM EST agree [facility]01-06-2025 Telephone encounter Note* Telephone Encounter - [...] to the Pt. Ashley De Dios RN [facility]01-06-2025 Telephone encounter Note* Telephone Encounter - Guanakito Reno MD - 10/21/2024 1:55 PM EST Can try mucinex otc. Call if symptoms worsen at all or if not better in one to two weeks [facility]01-06-2025 Telephone encounter Note* Telephone Encounter - [...] for Covid. Please call and advise. [facility]12-17-2024 Telephone encounter Note* Telephone Encounter - Twin Cole [facility] - 10/01/2024 9:37 AM EST [facility] Antico[facility] Anticoagulation Episode Summary Anticoagulation Care Providers Provider Role Specialty Phone number Guanakito Reno MD [facility] [phone] Cal Mitchell is a 79 year old [...] Pharmacy Anticoagulation Clinic Pharmacy Anticoagulation Clinic Pager: [phone]. [facility]12-17-2024 Miscellaneous Notes* Telephone Encounter - Twin Cole RPh - 10/01/2024 9:37 AM EST [facility] Anticoagulation [facility] Anticoagulation Episode Summary Anticoagulation Care Providers Provider Role Specialty Phone number Guanakito Reno MD [facility] [phone] Cal Mitchell is a 79 year old [...] Pharmacy Anticoagulation Clinic Pharmacy Anticoagulation Clinic Pager: [phone]. documented in this encounterZanesville City Hospital11-11-2024 Telephone encounter Note * Telephone Encounter - Alejandro Molina RPh - 08/26/2024 6:35 AM EST [facility] Anticoagulation Episode Summary Anticoagulation Care Providers Provider Role Specialty Phone number Guanakito Reno MD [facility] [phone] Cal Mitchell is a 79 year old [...] warfarin instructions: 5 mg every day Sent G4S message Advised patient to continue current weekly dose as noted above Next INR check due on 09/09/2024 Alejandro Molina RPh Clinical Pharmacist, Pharmacy Anticoagulation Clinic Pharmacy Anticoagulation Clinic Pager: [phone]. [facility]11-11-2024 Miscellaneous Notes* Telephone Encounter - Alejandro Molina RPh - 08/26/2024 6:35 AM EST [facility] Anticoagulation Episode Summary Anticoagulation Care Providers Provider Role Specialty Phone number Guanakito Reno MD [facility] Family Medicine [phone] Cal Mitchell is a 79 year old [...] warfarin instructions: 5 mg every day Sent G4S message Advised patient to continue current weekly dose as noted above Next INR check due on 09/09/2024 Alejandro Molnia RPh Clinical Pharmacist, Pharmacy Anticoagulation Clinic Pharmacy Anticoagulation Clinic Pager: [phone]. documented in this encounterZanesville City Hospital11-04-2024 NoteHNO ID: [id number] Author: MELANIA GALINDO RN Service: ? Author Type: Registered Nurse Type: Progress Notes Filed: 08/19/2024 12:55 Note Text: Summary: Medication Adherence Review per Request of Payor ACNiels LUIS RN Reason for review or outreach: Medication Adherence Review Details: Cholesterol FYI/REQUESTED ACTION: Summary / Findings: Atorvastatin was due for refill on/before 08.09.24. Sent G4S reminder 08.15.24- not read Called patient Patient identified by name and date of . Patient Attributed To: YANCIE Payer: [employer] [place] Action Taken: Data submitted to Payer Contact made with patient: No, Left message BENJIE Schreiber RNOhiohealth [facility] History of Present illness Narrative* Melania Galindo RN - 08/19/2024 12:51 PM ESTSummary: Medication Adherence Review per Request of Payor [facility] LUIS RN Reason for review or outreach: Medication Adherence Review Details: Cholesterol FYI/REQUESTED ACTION: Summary / Findings: Atorvastatin was due for refill on/before 08.09.24. Sent G4S reminder 08.15.24- not read Called patient Patient identified by name and date of . Patient Attributed To: QAE Payer: [place] Action Taken: Data submitted to Payer Contact made with patient: No, Left message BENJIE Schreiber RN documented in this encounterZanesville City Hospital11-04-2024 NotePatient Outreach ([facility]) CAL MITCHELL ([id number]) 1945 M Date Time Provider Department 08/19/24 [facility]ALIND[facility] During your visit today, we recorded the following information about you: Melania Galindo RN 08/19/2024 12:55 PM Signed ACM LUIS RN Reason for review or outreach: Medication Adherence Review Details: Cholesterol FYI/REQUESTED ACTION: Summary / Findings: Atorvastatin was due for refill on/before 08.09.24. Sent G4S reminder 08.15.24- not read Called patient Patient identified by name and date of . Patient Attributed To: [facility] Payer: [facility] Action Taken: Data submitted to Payer Contact [...] Insulin: No - Lancets (ONE TOUCH DELICA) [facility] [place] lancets Test blood sugar(s) one time daily. 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 Cannot tell this Nurse what he is taking and not takiing at this time. Bi Cantu LPN August 06, 2024 1:29 PM documented in this encounterZanesville City Hospital10-22-2024 NoteHNO ID: [id number] Author: LAURA IRAHETA MD Service: ? Author Type: Physician Type: Progress Notes Filed: 08/06/2024 17:14 Note Text: Heart , Vascular and Thoracic [place] DEPARTMENT OF VASCULAR SURGERY OUTPATIENT VISIT DATE [...] 250.00. Insulin: No Lancets (ONE TOUCH DELICA) [facility] lancets Test blood sugar(s) one time daily. Dx: 250.00. Insulin: No ALLERGIES: ALLERG (more content not included)...[facility]10-22-2024 History of Present illness Narrative* Laura Iraheta MD - 08/06/2024 1:25 PM EDT Images from the original note were not included. Heart , Vascular and Thoracic [place] DEPARTMENT OF VASCULAR SURGERY OUTPATIENT VISIT DATE [...] airway obstruction, not elsewhere classified 10/2004 Diabetes ([facility]) Diverticulosis of colon (without mention of hemorrhage) Ectatic thoracic aorta ([facility]) 06/07/2018 06/07/18 Chest CTA: There is [...] 250.00. Insulin: No Lancets (ONE TOUCH DELICA) [facility] [place] lancets Test blood sugar(s) one time daily. [...] VITALS: BP 128/68 Pulse 61 Ht 5' 10[patient reports[ (1.78m) Wt 240 lb (108.9kg) SpO2 [...] 2024 TIME: 4:41 PM documented in this encounterZanesville City Hospital10-17-2024 Telephone encounter Note * Telephone Encounter - Josselyn Mayer APRN.CNP - 08/01/2024 9:56 AM EDT I spoke with Gustavo and communicated recommendations of medical therapy. He reports patient also expressed wanting to continue without any further intervention. Patient and family agreeable to plan. Josselyn Mayer APRN.CNP [facility]10-17-2024 Miscellaneous Notes* Telephone Encounter - Josselyn [...] Gustavo calls requesting a return call at [phone]. Chely Nicolas RN * Telephone Encounter - Josselyn Mayer APRN.CNP - 07/30/2024 10:34 AM EDT Attempted to contact patient and his family to update him on the treatment plan. Left voicemail requesting phone call back. Josselyn Mayer APRN.CNP documented in this encounterZanesville City Hospital10-16-2024 Telephone encounter Note * Telephone Encounter - Chely Nicolas RN - 07/31/2024 3:53 PM EDT Gustavo calls requesting a return call at [phone]. Chely Nicolas RN [facility]10-15-2024 NoteHNO ID: [id number] Author: JOSSELYN MAYER APRN.CNP Service: ? Author [...] patient by our office. Josselyn Mayer APRN.CNP 07/30/2024[facility]10-15-[facility]24 History of Present illness Narrative* Josselyn Mayer [...] Josselyn Mayer APRN.CNP 07/30/2024 documented in this encounterZanesville City Hospital10-15-2024 Telephone encounter Note * Telephone Encounter - Josselyn Mayer APRN.CNP - 07/30/2024 10:34 AM EDT Attempted to contact patient and his family to update him on the treatment plan. Left voicemail requesting phone call back. Josselyn Mayer APRN.CNP [facility]10-11-2024 Telephone encounter Note* Telephone Encounter - Kamran Ayon [facility] - 07/26/2024 4:22 PM EDT Images from the original note were not included. Called and left voice message for daughter January asking her to return call to Pharmacy Anticoagulation Clinic to discuss if Lovenox was started for patient. Josselyn Mayer APRN.Chely Cho RNYester (2:01 PM) I sent 8 syringes [...] to test INR. Kamran Ayon PharmD, BCPS [facility]10-11-2024 Miscellaneous Notes* Telephone Encounter - Kamran Ayon RPh - 07/26/2024 4:22 PM EDT Images from the original note were not included. Called and left voice message for daughter January asking her to return call to Pharmacy Anticoagulation Clinic to discuss if Lovenox was started for patient. Josselyn Mayer APRN.Chely Cho RNYester (2:01 PM) I sent 8 syringes [...] BCPS * Telephone Encounter - Jimmy Carrizales [facility] - 07/25/2024 11:45 AM EDT Left voice message asking patient at [phone] (home) or daughter January to call the Anticoagulation Clinic at [phone] re: patient recenly off warfarin for heart cath on 07/23/24. Patient was prescribed Lovenox 100 mg sq Once daily by cardiology. Next Action for Anti coag Management: TM Remote Jimmy Carrizales PharmD., CACP documented in this encounterZanesville City Hospital10-10-2024 Telephone encounter Note * Telephone Encounter - Jimmy Carrizales RPh - 07/25/2024 11:45 AM EDT Left voice message asking patient at [phone] (home) or daughter January to call the Anticoagulation Clinic at [phone] re: patient recenly off warfarin for heart cath on 07/23/24. Patient was prescribed Lovenox 100 mg sq Once daily by cardiology. Next Action for Anti coag Management: TM Remote Jimmy Carrizales PharmD., CACP [facility]10-08-2024 NoteHNO ID: [id number] Author: PAM REDDY MD Service: Cardiovascular Surgery [...] the groin with 1% lidocaine. A pre-flushed 6-Sinhala sheath was inserted into the femoral artery [...] July 23, 2024 TIME: 10:19 [facility] History of Present illness Narrative* Jeremaís Lofton, RT(R) - 07/23/2024 7:30 AM EDT [...] PATIENT PRESENTS WITH AN IMPLANTABLE OR ATTACHED DIRECTOR OF INCOME TAX: No ALLERGIES: Reviewed and unchanged CONTRAST ALLERGY: [...] 2024 TIME: 9:13 AM documented in this encounterZanesville City Hospital10-08-2024 NoteHNO ID: [id number] Author: JEREMÍAS LOFTON RT (R) Service: Radiology [...] PATIENT PRESENTS WITH AN IMPLANTABLE OR ATTACHED DIRECTOR OF INCOME TAX: No ALLERGIES: Reviewed and unchanged CONTRAST ALLERGY: [...] Mitchell DATE: July 23, 2024 TIME: 9:13 [facility]09-30-2024 Telephone encounter Note* Telephone Encounter - Josselyn Barrow LPN - 07/15/2024 3:19 PM EDT Notified Gustavo. [facility]09-30-2024 Miscellaneous Notes* Telephone Encounter - Josselyn [...] proceeding. Teresa Alexis, RN documented in this encounterZanesville City Hospital09-30-2024 Telephone encounter Note * Telephone Encounter - Magdalena Laird LPN - 07/15/2024 3:15 PM EDT Son notified of results and provider message. Magdalena Laird LPN [facility]09-30-2024 Miscellaneous Notes* Telephone Encounter - Magdalena [...] does off of meds. documented in this encounterZanesville City Hospital09-30-2024 Telephone encounter Note * Telephone Encounter - Guanakito Reno MD - 07/15/2024 2:40 PM EDT Agree. As long as he is aware. [facility]09-30-2024 Telephone encounter Note* Telephone Encounter - [...] like PCP recommendationbefore proceeding. Teresa Alexis, RN [facility]09-30-2024 Telephone encounter Note* Telephone Encounter - Carolina Alba MA - 07/15/2024 2:14 PM EDT Message left for return call. Carolina Alba MA [facility]09-30-2024 Telephone encounter Note* Telephone Encounter - Guanakito Reno MD - 07/15/2024 1:04 PM EDT Kidney function and anemia are stable. See nephrology as we had recommended. Sugars are overall notbad. Hold on amaryl. Call sugars in two weeks to see how he does off of meds. [facility]09-30-2024 NoteHNO ID: [id number] Author: GUANAKITO RENO MD Service: ? Author Type: Physician Type: Progress Notes Filed: 07/15/2024 08:05 Note Text: Apparently second visit created in error.[facility]09-30-2024 History of Present illness Narrative* Guanakito Reno MD - 07/15/2024 8:03 AM EDT Apparently second visit created in error. documented in this encounterZanesville City Hospital09-27-2024 Telephone encounter Note * Telephone Encounter - Guanakito Reno MD - 07/12/2024 12:49 PM EDT Noted. Thank you [facility]09-27-2024 Miscellaneous Notes* Telephone Encounter - Guanakito Reno MD - 07/12/2024 12:49 PM EDT Noted. Thank you * Telephone Encounter - Art Estes - 07/12/2024 12:34 PM EDT Attempted to find sooner apt time for patients nephrology apt, no sooner times within [facility] facilities that are faster than patients [facility] apt. documented in this encounterZanesville City Hospital09-27-2024 Telephone encounter Note * Telephone Encounter - Art Estes - 07/12/2024 12:34 PM EDT Attempted to find sooner apt time for patients nephrology apt, no sooner times within [facility] facilities that are faster than patients [facility] apt. [facility]09-27-2024 NoteHNO ID: [id number] Author: GUANAKITO RENO MD Service: ? Author [...] or worsening shortness of breath. Currently wearing [employer] heart monitor. Placed yesterday. Follows with Cardiology. Dr. Reddy. Continues on Warfarin. Last INR 07/04/24 2.2 done remotely. No bleeding or bruising concerns. Per patient his memory is unchanged. According to son-in-law whom is with him at appointment states patient has zone out periods. Sometimes has hard time trying to [...] 250.00. Insulin: No Lanc[facility] T[facility]CH DEL[facility] blood sugar(s) one time [...] or worsening shortness of breath. Currently wearing [employer] heart monitor. Placed yesterday. Follows with Cardiology. Dr. Reddy. Continues on Warfarin. Last INR 07/04/24 2.2 done remotely. No bleeding or bruising concerns. Per patient his memory is unchanged. According to son-in-law whom is with him at appointment statespatient has zone out periods. Sometimes has hard time trying to [...] 250.00. Insulin: No Lancets (ONE TOUCH DELICA) [facility] [place]ancets Test blood sugar(s) one time daily. [...] Pulse (!) 59 Ht 177.8 cm (5' 10) Wt 109.2 kg (240 lb 12.8 oz) [...] amaryl. Check sugars when he has a spell. Cardiology believes related to valve or carotid, however, assess sugars as well. 8. Chronic renal disease, stage IV (HCC) - ICD9: 585.4, ICD10: N18.4 - as above. 9. 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 Guanakito Reno MD documented in this encounterZanesville City Hospital09-25-2024 NoteHNO ID: [id number] Author: PAM REDDY MD Service: ? Author Type: Physician Type: Progress Notes Filed: 07/10/2024 15:17 Note Text: Pam Reddy MD Interventional Cardiology [address] [place] [address] Chief Complaint Patient presents with: Aortic Stenosis: [...] with significant dementia. Patient follow-up at the [facility] 6 months ago he was completely asymptomatic [...] 8 hours as needed. blood sugar diagnostic ([employer] ULTRA TEST) test strip Test blood sugar(s) one times daily. Dx: 250.00. Insulin: No 150 Strip 3 Lancets (ONE TOUCH DELICA) Misc lancets Test blood sugar(s) one time chichi (more content not included)...[facility]09-25-2024 History of Present illness Narrative* Pam Reddy MD - 07/10/2024 3:07 PM EDT Images from the original note were not included. Pam Reddy MD Interventional Cardiology [address] [place] [address] Chief Complaint Patient presents with: Aortic Stenosis: [...] with significant dementia. Patient follow-up at the [place] office 6 months ago he was completely [...] 150 Strip 3 Lancets (ONE TOUCH DELICA) [facility] lancets Test blood sugar(s) one time daily. [...] Examination: Vitals:BP 120/70 Pulse 94 Ht 5' 10[Patient reports[ (1.78m) Wt 240 lb 6.4 oz [...] results found for: TSHREFL Prior Cardiac Testing EKG Assessment and Plan: [...] CTA CHEST (GATED) WO/W IVCON - CARDIAC VASCULAR SPECIALISTS ORDER - EXTENDED WEAR SUPERVISORY IT SPECIALIST PATCH - COMPLETE BLOOD COUNT - BASIC [...] made to correct any errors. * Josselyn Mayer, [employer] OFFICIAL.COURT ORDERLY - 07/10/2024 9:39 AM EDT Procedure Type: [...] 10, 2024 TIME: 8:06 AM PAGER/CONTACT #: [phone] documented in this encounterZanesville City Hospital09-25-2024 Nurse Note* Judy Díaz Director Of Recreation Therapy - 07/10/2024 10:00 AM EDT Applied 14 day extended wear EKG patch. Pt verbalized understanding of monitor use / diary. [facility]09-25-2024 Nurse Note* Judy Díaz Director Of Recreation Therapy - 07/10/2024 10:00 AM EDT Applied 14 day extended wear EKG patch. Pt verbalized understanding of monitor use / diary. documented in this encounterZanesville City Hospital09-25-2024 NoteHNO ID: [id number] Author: JOSSELYN MAYER APRN.CNP Service: ? Author Type: Nurse Practitioner Type: Progress Notes Filed: 07/10/2024 15:17 Note Text: Procedure Type: Isolated AVR Perioperative Outcome Estimate % Operative Mortality 9.12% Morbidity AND Mortality 21.6% Stroke 2% Renal Failure 20.9% Reoperation 5.43% Prolonged Ventilation 9.19% Deep Sternal Wound Infection 0.103% Long Hospital Stay (>14 days) 13.4% Short Hospital Stay (<6 days)* 15.7% Josselyn Mayer APRN.KOURTNEYNorthern Light Acadia Hospital09-25-2024 Instructions* Patient Instructions* Josselyn Mayer APRN.COURT ORDERLY - 07/10/2024 8:55 AM EDT Images from [...] is,your doctor might order an echocardiogram (or echo). This test uses sound waves to create [...] order a test called cardiac catheterization, or cardiac cath. For this, the provider puts a thin [...] This part of the test is called coronary angiography. Your provider might order a test called [...] process is complete. The content on the [employer] website is not intended nor recommended as a substitute for medical advice, diagnosis, or treatment. Always seek the advice of your own physician or other qualified healthcare professional regarding any medical questions or conditions.. 2016 [employer]. All rights reserved. Topic 04490 Version 5.0 documented in this encounterZanesville City Hospital09-25-2024 NoteHNO ID: [id number] Author: CAL THACKER MD Service: ? Author Type: Physician Type: Progress Notes Filed: 07/10/2024 09:32 Note Text: PRIMARY CARE PHYSICIAN: Guanakito Reno [address] [place] [address] Subjective Chief Complaint Patient presents with: Aortic [...] Examination Vitals:BP 120/70 Pulse 94 Ht 5' 10[Patient reports[ (1.78m) Wt 240 lb 6.4 oz [...] Current Out (more content not included)...[facility]09-25-2024 History of Present illness Narrative* Cal Thacker MD - 07/10/2024 8:37 AM EDT PRIMARY CARE PHYSICIAN: Guanakito Reno [address] [place] [address] Subjective Chief Complaint Patient presents with: Aortic [...] Examination Vitals:BP 120/70 Pulse 94 Ht 5' 10[Patient reports[ (1.78m) Wt 240 lb 6.4 oz [...] 150 Strip 3 Lancets (ONE TOUCH DELICA) [facility] lancets Test blood sugar(s) one time daily. [...] has significant left carotid stenosis. We believe janelle continue workup with L/RHC and TAVR scans in preparation for TAVR. We will also refer to vascular surgery and a building specialist for further evaluation. Family will discuss how [...] 10, 2024 TIME: 8:13 AM PAGER/CONTACT #: [id number] documented in this encounterZanesville City Hospital09-25-2024 NoteHNO ID: [id number] Author: BI CANTU LPN Service: ? Author [...] 10, 2024 TIME: 8:13 AM PAGER/CONTACT #: [id number] Light Acadia Hospital09-25-2024 Note HNO ID: [id number] Author: BI CANTU LPN Service: ? Author [...] 10, 2024 TIME: 8:06 AM PAGER/CONTACT #: [id number] Light Acadia Hospital09-20-2024 Telephone encounter Note* Telephone Encounter - Annamarie Garcia [facility] - 07/05/2024 9:43 AM EDT [facility] Anticoagulation Episode Summary Anticoagulation Care Providers Provider Role Specialty Phone number Guanakito Reno MD [facility] [phone] Cal Mitchell is a 79 year old [...] 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: care home (current) use of anticoagulants Paroxysmal atrial fibrillation (hcc) Anticoagulation Episode Summary Current INR goal: 2.0-3.0 Assessment: INR result of 2.2 is therapeutic Plan: Current Warfarin Dosing As of 07/05/2024 Full warfarin instructions: 5 mg every day Left voice message And sent Reward[employer] message Advised patient to continue current weekly dose as noted above Next home INR check scheduled on 07/18/2024 Annamarie Garcia RPh Clinical Pharmacist, Pharmacy Anticoagulation Clinic Pharm[facility] Pager: [phone]. [facility]09-20-2024 Miscellaneous Notes* Telephone Encounter - Annamarie Garcia RPh - 07/05/2024 9:43 AM EDT [facility] Anticoagulation Episode Summary Anticoagulation Care Providers Provider Role Specialty Phone number Guanakito Reno MD 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 documented in this encounterZanesville City Hospital09-03-2024 Telephone encounter Note * Telephone Encounter - Jimmy Carrizales [facility] - 06/18/2024 8:39 AM EDT [facility] Anticoagulation Episode Summary Anticoagulation Care Providers Provider Role Specialty Phone number Guanakito Reno MD 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 [facility]09-03-2024 Miscellaneous Notes* Telephone Encounter - Jimmy Carrizales RPh - 06/18/2024 8:39 AM EDT [facility] Anticoagulation Episode Summary Anticoagulation Care Providers Provider Role Specialty Phone number Guanakito Reno MD [facility] [phone] Cal Mitchell is a 78 year old [...] 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: care home (current) use of anticoagulants Paroxysmal atrial fibrillation [...] Pharmacy Anticoagulation Clinic Pharmacy Anticoagulation Clinic Pager: [phone]. documented in this encounterZanesville City Hospital08-22-2024 Instructions* Patient Instructions* Carolina Landeros APRN.CNP - 06/06/2024 12:10 PM EDT 1) Stop Actos 2) Stop melatonin 3) Try to increase protein 4) Follow up in 1 months documented in this encounterZanesville City Hospital08-22-2024 NoteHNO ID: [id number] Author: CAROLINA LANDEROS APRN.CNP Service: ? Author [...] cardiovascular system 10/20: Peripheral vascular disease, unspecified ([facility]) Comment: R carotid 04/18: Unspecified essential [...] 250.00. Insulin: No Lancets (ONE TOUCH DELICA) [facility] lancets Test blood sugar(s) one time daily. [...] History of Present illness Narrative* Carolina Landeros APRN.[facility] - 06/06/2024 11:39 AM EDT This [...] improvement. Carolina Landeros APRN.CNP documented in this encounterZanesville City Hospital08-21-2024 Telephone encounter Note * Telephone Encounter - Josselyn Barrow LPN - 06/05/2024 4:53 PM EDT Attempted to reach daughter and her is already here with patient. [facility]08-21-2024 Miscellaneous Notes* Telephone Encounter - Josselyn Barrow LPN - 06/05/2024 4:53 PM EDT Attempted to reach daughter and her is already here with patient. * Telephone Encounter - Corrina Lennon APRN.CNP - 06/05/2024 4:46 PM EDT I am doubtful that [facility] care will address any changes that will [...] Khan? Corrina Lennon APRN.CNP documented in this encounterZanesville City Hospital08-21-2024 Telephone encounter Note * Telephone Encounter [...] we can get him scheduled. Corrina Lennon APRN.COURT ORDERLY [facility]08-21-2024 NoteHNO ID: [id number] Author: VALERIE GRUBER APRN.CNP Service: ? Author Type: Nurse Practitioner Type: Progress Notes Filed: 06/05/2024 17:16 Note Text: This note was created using [employer]. Subjective Cal Mitchell is a 78 year old male. 78 year old male with PMH HTN, hyperlipidemia, afib, PAD, CKD, DM presents for medical complaints. Acute onset of symptoms was over a week ago Patients daughter had sent in a [employer] message on 06/03/24. At that time she expressed his bilateral leg swelling and inquiring into whether or not medicines need adjusted. On 06/04/24 Corrina Lennon asked for patient to be seen in office this week. Nursing staff reached out today at 4 pm. They wanted an appointment this evening, but none available. Patient presents with his son in law they told me to come to express care Son in law states that his medicines I forget which one were changed. He is requesting that The history is provided by the patient. No parts interpreter was used. Edema This is a new [...] History of Present illness Narrative* Valerie Gruber APRN.COURT ORDERLY - 06/05/2024 4:45 PM EDT This note was created using [employer]. Subjective Cal Mitchell is a 78 year old male. 78 year old male with PMH HTN, hyperlipidemia, afib, PAD, CKD, DM presents for medical complaints. Acute onset of symptoms was over a week ago Patients daughter had sent in a [employer] message on 06/03/24. At that time she expressed his bilateral leg swelling and inquiring into whether or not medicines need adjusted. On 06/04/24 Corrina Lennon asked for patient to be seen in office this week. Nursing staff reached out today at 4 pm. They wanted an appointment this evening, but none available. Patient presents with his son in law they told me to come to express care Son in law states that his medicines I forget which one were changed. He is requesting that The history is provided by the patient. No parts interpreter was used. Edema This is a new [...] change medicines related to chronic conditions. Reviewed G4S messages where patient was requested to be seen in person by PCP Appt made for AM 06/06/24 Valerie Gruber APRN.KOURTNEY documented in this encounterZanesville City Hospital08-21-2024 Telephone encounter Note * Telephone Encounter [...] daughter Elly or son-in-law Gustavo. Thank you. [facility]08-19-2024 Telephone encounter Note* Telephone Encounter - Corrina Lennon APRN.CNP - 06/03/2024 7:42 PM EDT We should probably have him in so we can see his legs and check his blood pressure. Please help schedule. Can we also get him contact info for nephrology. If he is looking for carole, it would probably beDrTitus Khan? Corrina Lennon APRN.KOURTNEY [facility]08-08-2024 Telephone encounter Note* Telephone Encounter - Chely Nicolas RN - 05/23/2024 9:49 AM EDT Images from the original note were not included. Gladys Bella You31 minutes ago (9:17 AM) TR Good Morning. Pt is scheduled for Valve Clinic on 07/10/24 at 8:30 am per Josselyn. [facility]08-08-2024 Miscellaneous Notes* Telephone Encounter - Chely Nicolas RN - 05/23/2024 9:49 AM EDT Images from the original note were not included. Nico Bellacy Ivan31 minutes ago (9:17 AM) TR Good Morning. [...] PM EDT ----- Message from Josselyn Mayer APRN.COURT ORDERLY sent at 05/20/2024 2:28 PM EDT ----- Creatinine 2.3. Per chart review he was asymptomatic but had an episode of syncope. Do you want work up first or just valve clinic? Josselyn ----- Message ----- From: Pam Reddy MD Sent: 05/18/2024 8:44 AM EDT To: Chely Nicloas RN; Josselyn Mayer APRN.COURT ORDERLY Aortic stenosis need to establish care at [...] [facility] documented in this encounterZanesville City Hospital08-08-2024 Telephone encounter Note * Telephone Encounter - Chely Nicolas RN - 05/23/2024 8:27 AM EDT Left message on voicemail requesting pt return call for test results and MD recommendations. Officephone number provided. Chely Nicolas RN [facility]08-08-2024 Telephone encounter Note* Telephone Encounter - Chely Nicolas RN - 05/23/2024 8:26 AM EDT Images from the original note were not included. Pam Reddy MD You; Josselyn Mayer, [employer] OFFICIAL.CNP15 hours ago (4:42 PM) Let's see at the valve clinic [facility]08-06-2024 Telephone encounter Note* Telephone Encounter - Wilfred June R - 05/21/2024 3:10 PM EDT Patient's son in law called in to confirm appointment with Dr. Reddy. Thanks Claritza Smith Wilfred [facility]08-06-2024 Miscellaneous Notes* Telephone Encounter - Wilfred June R - 05/21/2024 3:10 PM EDT Patient's son [...] you, Josselyn Mayer APRN.CNP documented in this encounterZanesville City Hospital08-05-2024 Telephone encounter Note * Telephone Encounter [...] EDT To: Chely Nicolas RN; Josselyn Mayer APRN.KOURTNEY Aortic stenosis need to establish care at the valve clinic [facility]08-05-2024 Telephone encounter Note* Telephone Encounter - Josselyn Mayer APRN.KOURTNEY - 05/20/2024 2:29 PM EDT Attempted to [...] with Nephrologists. Thank you, Josselyn Mayer APRN.KOURTNEY [facility] Work Phone: [phone]) 464-868508-05-2024 Telephone encounter Note* Telephone Encounter - Chely Nicolas RN - 05/20/2024 9:59 AM EDT Left message on voicemail requesting pt return call for test results. Office phone number provided. Chely Nicolas RN [facility]08-05-2024 Telephone encounter Note* Telephone Encounter - Chely Nicolas RN - 05/20/2024 9:58 AM EDT ----- Message from Pam Reddy MD sent at 05/18/2024 8:44 AM EDT ----- Aortic stenosis need to establish care at the [facility]08-02-2024 Telephone encounter Note* Telephone Encounter - Dorothy Sainz, [facility] - 05/17/2024 9:22 AM EDT [facility] Ambulatory Pharmacy Anticoagulation Clinic Anticoagulation Episode Summary Anticoagulation Care Providers Provider Role Specialty Phone number Guanakito Reno MD [facility] [phone] Cal Mitchell is a 78 year old [...] 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: care home (current) use of anticoagulants Paroxysmal atrial fibrillation (hcc) Anticoagulation Episode Summary Current INR goal: 2.0-3.0 Assessment: INR result of 2.8is therapeutic Plan: Current Warfarin Dosing As of 05/17/2024 Full warfarin instructions: 5 mg every day Sent G4S message Advised patient to continue current weekly dose as noted above Next home INR check scheduled on 05/30/2024 Dorothy aSinz RPh Clinical Pharmacist, Pharmacy Anticoagulation Clinic Pharmacy An[facility] Pager: [phone]. 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 documented in this encounterZanesville City Hospital07-22-[facility]24 Instructions* Patient Instructions* Corrina Lennon APRN.CNP - 05/06/2024 6:38 PM EDT Continue to try to get the stool sample. Continue the same medication. Schedule with nephrology (kidney doctor). Recheck with Dr. Reno in 2 months. documented in this encounterZanesville City Hospital07-22-2024 History of Present illness Narrative* Corrina [...] a fall. Was outside and grabbed the [id number] and shook it for a few seconds and then fell. Denies any LOC. No loss of bowel/bladder with fall. Checks glucose afterwards, and it was fine. Denies injury. Pt doesn't recall dizziness or [...] 250.00. Insulin: No Lancets (ONE TOUCH DELICA) [facility] [place] Test blood sugar(s) one time daily. [...] 62 Resp 14 Ht 175.3 cm (5' 9) Wt 116.6 kg (257 lb) SpO2 89% [...] as needed for worsening/no improvement. Corrina Lennon APRN.COURT ORDERLY documented in this encounterZanesville City Hospital07-18-2024 History of Present illness Narrative* Jody [...] PATIENT PRESENTS WITH AN IMPLANTABLE OR ATTACHED DIRECTOR OF INCOME TAX: No RADIOLOGY DEPARTMENT: Ultrasound PERIPHERAL IV DATA: Not applicable SIGNED BY: Jody Queen RDMS May 02, 2024 10:49 AM documented in this encounterZanesville City Hospital07-15-2024 Telephone encounter Note * Telephone Encounter - Stephany Graves MA - 04/29/2024 9:48 AM EDT Spoke with daughter. She stated she was suppose to call the local terrazzo tile setter but didn't have the number and then forgot to call office to get it. Also [facility], states she forgot password. I have sent number for Dr. Khan to pt home along with mychart number so she can get mychart account fixed and call to set up his appt with terrazzo tile setter. Pt needs refill of Lipitor sent to [facility]. Stephany Graves MA [facility]07-15-2024 Miscellaneous Notes* Telephone Encounter - Stephany Graves MA - 04/29/2024 9:48 AM EDT Spoke with daughter. She stated she was suppose to call the local terrazzo tile setter but didn't have the number and then forgot to call office to get it. Also she is not able to [facility], states she forgot password. I have sent number for Dr. Khan to pt home along with mychart number so she can get mychart account fixed and call to set up his appt with terrazzo tile setter. Pt needs refill of Lipitor sent to [...] nephrology? Was ordered previously. documented in this encounterZanesville City Hospital07-10-2024 Telephone encounter Note * Telephone Encounter - Mason Ruthie, [facility] - 04/24/2024 9:45 AM EDT [facility] Ambulatory Pharmacy Anticoagulation Clinic Anticoagulation Episode Summary Anticoagulation Care Providers Provider Role Specialty Phone number Guanakito Reno MD [facility] Medicine [phone] Cal Mitchell is a 78 year old [...] 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: care home (current) use of anticoagulants Paroxysmal atrial fibrillation (hcc) Anticoagulation Episode Summary Current INR goal: 2.0-3.0 Assessment: INR result of 2.7 is therapeutic Plan: Current Warfarin Dosing As of 04/24/2024 Full warfarin instructions: 5 mg every day Sent G4S message Advised patient to continue current weekly dose as noted above Next home INR check scheduled on 05/07/2024 Ruthie Cuevas RPh Clinical Pharmacist, Pharmacy Anticoagulation Clinic Pharmacy Anticoagulation Clinic Pager: [phone]. [facility]07-10-2024 Miscellaneous Notes* Telephone Encounter - Ruthie Cuevas RPh - 04/24/2024 9:45 AM EDT [facility] Ambulatory Pharmacy Anticoagulation Clinic Anticoagulation Episode Summary Anticoagulation Care Providers Provider Role Specialty Phone number Guanakito Reno MD 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 documented in this encounterZanesville City Hospital07-05-2024 Telephone encounter Note * Telephone Encounter - Geovanna Hinds MA - 04/19/2024 4:14 PM EDT Left message for patient to return call. Geovanna Hinds Ma [facility]07-05-2024 Telephone encounter Note* Telephone Encounter - Guanakito Reno MD - 04/19/2024 3:46 PM EDT Anemia is stable. I still need an ifobt done since he is on blood thinners to rule out gi blood loss. It may well be related to his kidneys. They are stable but worse. Did he get set up with nephrology? Was ordered previously. [facility]06-24-2024 Telephone encounter Note* Telephone Encounter - Corrina Lennon APRN.COURT ORDERLY - 04/08/2024 3:45 PM EDT Pt aware. Corrina Lennon APRN.KOURTNEY [facility]06-24-2024 Miscellaneous Notes* Telephone Encounter - Corrina Lennon APRN.CNP - 04/08/2024 3:45 PM EDT Pt aware. Corrina Lennon APRN.KOURTNEY * Telephone Encounter - Josselyn Barrow LPN [...] two weeks. See nephrology documented in this encounterZanesville City Hospital06-24-2024 Telephone encounter Note * Telephone Encounter - Alejandro Molina RPh - 04/08/2024 3:[address] [facility] Pharmacy Anticoagulation Clinic Anticoagulation Episode Summary Anticoagulation Care Providers Provider Role Specialty Phone number Guanakito Reno MD Responsible Family Medicine [phone] Cal Mitchell is a 78 year old [...] Pharmacy Anticoagulation Clinic Pharmacy Anticoagulation Clinic Pager: [phone]. [facility]06-24-2024 Miscellaneous Notes* Telephone Encounter - Alejandro Molina RPh - 04/08/2024 3:[address] [facility] Pharmacy Anticoagulation Clinic Anticoagulation Episode Summary Anticoagulation Care Providers Provider Role Specialty Phone number Guanakito Reno MD Responsible [facility] [phone] Cal Mitchell is a 78 year old [...] Pharmacy Anticoagulation Clinic Pharmacy Anticoagulation Clinic Pager: [phone]. documented in this encounterZanesville City Hospital06-24-2024 Instructions* Patient Instructions* Corrina Lennon APRN.CNP - 04/08/2024 3:11 PM EDT Continue the same medication. Get the repeat labs in 2 weeks. Get the echo, carotid ultrasound, kidney ultrasound as planned. Schedule w/ nephrology. Schedule back in 1 month for recheck. documented in this encounterZanesville City Hospital06-24-2024 History of Present illness Narrative* Corrina [...] 250.00. Insulin: No Lancets (ONE TOUCH DELICA) [facility] [place]ancets Test blood sugar(s) one time daily. [...] agrees with the plan. documented in this encounterZanesville City Hospital06-22-2024 Telephone encounter Note * Telephone Encounter [...] Diana Jimenez PharmD, MPH Anticoagulation Clinic Pharmacist [phone] [facility]06-22-2024 Miscellaneous Notes* Telephone Encounter - Nabila [...] Diana Jimenez PharmD, MPH Anticoagulation Clinic Pharmacist [phone] * Telephone Encounter - Nabila Jimenez RPh - 04/06/2024 3:49 PM EDT Called and LM for patient and sent MyChart referenced in (though patient has not logged into [employer] since December). Patient was asked to call/page PAC at next convenience to confirm receipt of message Will follow up on Monday and expect next INR on that date Diana Jimenez PharmD, MPH Anticoagulation Clinic Pharmacist [phone] * Telephone Encounter - Yamilka Heath RN - 04/04/2024 1:14 PM EDT Alana guzman Chris calling in INR result today (04/04.) result has been addressed below. 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 documented in this encounterZanesville City Hospital06-22-2024 Telephone encounter Note * Telephone Encounter - Nabila Jimenez RPh - 04/06/2024 3:49 PM EDT Called and LM for patient and sent [employer] referenced in VM (though patient has not logged into [employer] since December). Patient was asked to call/page PAC at next convenience to confirm receipt of message Will follow up on Monday and expect next INR on that date Diana Jimenez, SamirD, MPH Anticoagulation Clinic Pharmacist [phone] [facility]06-21-2024 Telephone encounter Note* Telephone Encounter - Josselyn Barrow LPN - 04/05/2024 4:25 PM EDT Has visit scheduled with Corrina on Monday will route to their pool. If he keeps that appt can you please close for us? Thank you. [facility]06-21-[facility]24 Telephone encounter Note* Telephone Encounter - Carolina Alba MA - 04/05/2024 4:19 PM EDT No answer. Left detailed message stating we were calling in regards to results and needing to discuss a few things. Advised to return call. Carolina Alba MA [facility]06-21-2024 Telephone encounter Note* Telephone Encounter - Jonelle Worley LPN - 04/05/2024 10:41 AM EDT Phoned patient left message to return call and ask to speak to a nurse. [facility]06-21-2024 Telephone encounter Note* Telephone Encounter - Guanakito Reno MD - 04/05/2024 10:21 AM EDT Anemia is stable. May be related to his kidneys. Renal function continues to be slightly worse. Get renal us as ordered. Check ifobt. Recheck labs in two weeks. See nephrology [facility]06-20-2024 Telephone encounter Note* Telephone Encounter - Yamilka Heath RN - 04/04/2024 1:14 PM EDT Alana Perez calling in INR result today (04/04.) result has been addressed below. 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 [facility]06-11-2024 Instructions* Patient Instructions* Guanakito Reno MD - 03/26/2024 5:00 PM EDT Stop lisinopril hctz Start lisinopril. Call if any shortness of breath or edema. Weigh daily. Call us if you gain more than 3-4 lbs in a 24 hour period Get carotid ultrasound Recheck labs end of this week or early next. documented in this encounterZanesville City Hospital06-11-2024 History of Present illness Narrative* Guanakito [...] mg daily. Needs 30 day supply to [employer] while waiting for shipment from [employer]. No myalgias HTN: Continues on Zestoretic 20-12.5 [...] 8 hours as needed. blood sugar diagnostic ([employer] ULTRA TEST) test strip Test blood sugar(s) [...] bilateral axillary REMOVAL IMPACTED CERUMEN INSTRUMENTATION UNILAT 1/05 TEAEC W/PATCH GRF CAROTID VERTB SUBCLAV NECK [...] 98/46 Pulse 86 Ht 175.3 cm (5' 9) Wt 113.9 kg (251 lb) SpO2 98% [...] ICD10: G30.9, F01.50, F02.80 - stable. 9. care home (current) use of anticoagulants - ICD9: V58.61, [...] two weeks or prn. documented in this encounterZanesville City Hospital06-10-2024 History of Present illness Narrative* Pam Reddy MD - 03/25/2024 5:19 PM EDT Images from the original note were not included. Pam Reddy MD Interventional Cardiology [address] [place] [address] [phone] Chief Complaint Patient presents with: Follow Up [...] 150 Strip 3 Lancets (ONE TOUCH DELICA) [facility] [place] lancets Test blood sugar(s) one time daily. [...] to correct any errors. documented in this encounterZanesville City Hospital05-24-2024 History of Present illness Narrative* Melania [...] of . Patient Attributed To: [employer] Payer: [facility] Action Taken: Data submitted to [employer] message to patient Notation made to upcoming appointment notes requesting provider follow up Contact made with patient: No, Chart review only. Melania Galindo RN documented in this encounterZanesville City Hospital05-23-2024 Telephone encounter Note * Telephone Encounter - Jimmy Carrizales, [facility] - 03/07/2024 11:54 AM EDT [facility] Ambulatory Pharmacy Anticoagulation Clinic Anticoagulation Episode Summary Anticoagulation Care Providers Provider Role Specialty Phone number Guanakito Reno MD 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 [facility]05-23-[facility] Miscellaneous Notes* Telephone Encounter - Jimmy Carrizales RPh - 03/07/2024 11:54 AM EDT [facility] Ambulatory Pharmacy Anticoagulation Clinic Anticoagulation Episode Summary Anticoagulation Care Providers Provider Role Specialty Phone number Guanakito Reno MD 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 documented in this encounterZanesville City Hospital05-01-2024 Telephone encounter Note * Telephone Encounter - Ruthie Cuevas RP - 02/14/2024 9:04 AM EDT [facility] Ambulatory Pharmacy Anticoagulation Clinic Anticoagulation Episode Summary Anticoagulation Care Providers Provider Role Specialty Phone number Guanakito Reno MD [facility] Family Medicine [phone] Cal Mitchell is a 78 year old [...] 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: care home (current) use of anticoagulants Paroxysmal atrial fibrillation [...] Pharmacy Anticoagulation Clinic Pharmacy Anticoagulation Clinic Pager: [phone]. 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 documented in this encounterZanesville City Hospital04-03-2024 Miscellaneous Notes* Telephone Encounter - Darrell [...] Thank you. Betzy Colvin. documented in this encounterZanesville City Hospital04-03-2024 Miscellaneous Notes* Telephone Encounter - Betzy Colvin - 01/17/2024 3:22 PM EDT Patient's daughter calling to request medication that is on patient list pioglitazone (ACTOS) 15 mg tablet Please [facility] to [facility]. documented in this encounterZanesville City Hospital04-01-2024 Miscellaneous Notes* Telephone Encounter - Alejandro Molina RPh - 01/15/2024 10:32 AM EDT [facility] Ambulatory [facility] Anticoagulation Clinic Anticoagulation Episode Summary Anticoagulation Care Providers Provider Role Specialty Phone number Guanakito eRno MD [facility] [phone] Cal Mitchell is a 78 year old [...] instructed to call Pharm[facility] at [phone] with any questionsor concerns. Alejandro Molina RPh Clinical Pharmacist, Pharmacy Anticoagulation Clinic Pharmacy Anticoagulation Clinic Pager: [phone] documented in this encounterZanesville City Hospital03-08-2024 Instructions* Patient Instructions* Carolina Landeros APRN.CNS - 12/22/2023 3:30 PM EST 1) Telfa dressing change daily 2) Letter for [place] [facility] 3) Follow up in 4) Melatonin 3mg qhs and may repeat once through night if needed documented in this encounterZanesville City Hospital03-08-2024 History of Present illness Narrative* Carolina [...] 250.00. Insulin: No Lancets (ONE TOUCH DELICA) [facility] [place]ancets Test blood sugar(s) one time daily. [...] agrees with the plan. documented in this encounterZanesville City Hospital03-07-2024 Miscellaneous Notes* Telephone Encounter - Teresa [...] 5:07 PM EST Please see provider, Elma hurt comment: This patient needs a CT of the head being on blood thinners. Also, cannot repair wound after 24 hours. Should go to ER. Did pt hit his head? We will [...] 7. 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 documented in this encounterZanesville City Hospital02-19-2024 Miscellaneous Notes* Telephone Encounter - Daniel JansenMotorcycle AssemblerAshley Granados - 12/04/2023 11:53 AM EST PATIENT CALL Received call from Summer with [facility] INR to report home meter result for patient. [facility] hasalready addressed this result (see below); nothing further needed at this time. Ashley Sanchez CPhT (Technical Support Intern) Pharmacy Anticoagulation Clinic * Telephone Encounter - Alejandro Molina [facility] - 12/04/2023 9:44 AM EST [facility] Ambulatory [facility] Anticoagulation Clinic Anticoagulation Episode Summary Anticoagulation Care Providers Provider Role Specialty Phone number Guanakito Reno MD [facility] [phone] Cal Mitchell is a 78 year old [...] instructed to call Pharm[facility] at [phone] with any questionsor concerns. Alejandro Molina RPh Clinical Pharmacist, Pharmacy Anticoagulation Clinic Pharmacy Anticoagulation Clinic Pager: [phone] documented in this encounterZanesville City Hospital12-06-2023 Miscellaneous Notes* Telephone Encounter - Ruthie Cuevas RPh - 09/20/2023 1:16 PM EST [facility] Ambulatory [facility] An[facility] Clinic Anticoagulation Episode Summary Anticoagulation Care Providers Provider Role Specialty Phone number Guanakito Reno MD [facility] [phone] Cal Mitchell is a 78 year old [...] 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: care home (current) use of anticoagulants Paroxysmal atrial fibrillation (hcc) Anticoagulation Episode Summary Current INR goal: 2.0-3.0 Assessment: INR result of 2.7 is therapeutic Plan: Current Warfarin Dosing As of 09/20/2023 Full warfarin instructions: 7.5 mg every Tue; 5 mg all other days Left voice message Advised patient to continue current weekly dose as noted above Next home INR check scheduled on 12.20 for January. Ruthie Cuevas RPh Clinical Pharmacist, Pharmacy Anticoagulation Clinic Pharmacy Anticoagulation Clinic Pager: [phone]. documented in this encounterZanesville City Hospital11-21-2023 History of Present illness Narrative* Mouna Vallecillo RN - 09/05/2023 1:48 PM ESTSummary: Medication Adherence review per request of payer ACM LUIS RN Action/FYI: Medication Adherence review completed per request of payer. NO PROVIDER ACTION REQUIRED Patient identified by name and date of . Patient Attributed To: [facility] Payer: [facility] [facility] Reason for review or outreach: Medication Adherence Medication Adherence Review Details: Diabetes Summary / Findings: GLIMEPIRIDE -- Refill Due - 07/18/2023 ATORVASTATIN -- Refill Due - 08/21/2023 Pharmacy - [facility] - Action Taken: Data submitted to Cogo message to patient Contact made with patient: No, Chart review only. documented in this encounterZanesville City Hospital11-07-2023 Miscellaneous Notes* Telephone Encounter - Twin Cole RPh - 08/22/2023 9:46 AM EST [facility] Anticoagulation Episode Summary Anticoagulation Care Providers Provider Role Specialty Phone number Guanakito Reno MD [facility] [phone] Cal Mitchell is a 78 year old [...] Pharmacy Anticoagulation Clinic Pharmacy Anticoagulation Clinic Pager: [phone]. documented in this encounterZanesville City Hospital11-01-2023 Miscellaneous Notes* Telephone Encounter - Gerardo [...] states she will workon this with patient. January asking how soon do you want his labs checked? Please clarify, as message only states one. Please phone Elly with reply: [phone] Copied and pasted provider's message from previous encounter: Sugars are really good. Stop his glimepiride. Call sugars in two weeks. His kidney function is worse, recheck labs in one . Make sure drinking adequate fluids. documented in this encounterZanesville City Hospital10-31-2023 Miscellaneous Notes* Telephone Encounter - Niels [...] sure drinking adequate fluids. documented in this encounterZanesville City Hospital10-30-2023 History of Present illness Narrative* Guanakito [...] Laterality Date ARTL CATHJ/CANNULJ MNTR/TRANSFUSION SPX PRQ 7-12-27 COLONOSCOPY FLX DX W/COLLJ SPEC WHEN PFRMD [...] Pulse (!) 59 Ht 175.3 cm (5' 9) Wt 120.7 kg (266 lb 3.2 oz) [...] YR, HIGH DOSE, QUADRIVALENT (FLUZONE HIGH-DOSE) - CoupFlip-GTI COVID-19 VACCINE (2022- SEASON) AGE 12+ YR [...] N18.31 Guanakito Reno MD documented in this encounterZanesville City Hospital10-11-2023 Miscellaneous Notes* Telephone Encounter - Ruthie Cuevas [facility] - 07/26/2023 4:50 PM EDT [facility] Anticoagulation Episode Summary Anticoagulation Care Providers Provider Role Specialty Phone number Guanakito Reno MD [facility] Family Medicine [phone] Cal Mitchell is a 78 year old [...] 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: care home (current) use of anticoagulants Paroxysmal atrial fibrillation [...] Pharmacy Anticoagulation Clinic Pharmacy Anticoagulation Clinic Pager: [phone]. documented in this encounterZanesville City Hospital09-19-2023 Miscellaneous Notes* Telephone Encounter - Pily Cuevas - 07/04/2023 3:50 PM EDT Patient needs to have a gap supply sent to [facility] as well please send at least a weeks worth. Patient has been identified by name and date of : Yes Requested Prescriptions Pending Prescriptions Disp Refills lisinopril-hydroCHLOROthiazide (ZESTORETIC) 20-12.5 mg per tablet 90 tablet 0 Sig: Take 1 tablet by mouth every morning. RX INSTRUCTIONS: Patient aware RX escripted to mail away pharmacy. No need to notify patient. Pily Horne documented in this encounterZanesville City Hospital09-12-2023 History of Present illness Narrative* Lizette Cardenas RN - 2023 3:08 PM EDT ACM LUIS RN Action/FYI: Medication Adherence review completed per request of payer. NO PROVIDER ACTION REQUIRED Please see requests in the Summary/Findings section below Patient identified by name and date of . Patient Attributed To: YANCIE Payer: [facility] Reason for review or outreach: Medication Adherence Medication Adherence Review Details: Hypertension Summary / Findings: Lisinopril was due for refill on: 05/16/23 at [facility] Action Taken: Data submitted to Cogo message to patient Other Contact made with patient: No, Chart review only. Signature: Lizette Cardenas RN documented in this encounterZanesville City Hospital08-07-2023 Miscellaneous Notes* Telephone Encounter - Alejandro Molina RPh - 05/22/2023 10:12 AM EDT [facility] Anticoagulation Episode Summary Anticoagulation Care Providers Provider Role Specialty Phone number Guanakito Reno MD [facility] [phone] Cal Mitchell is a 77 year old [...] instructed to call [facility] at [phone] with any questionsor concerns. Alejandro Molina RPh Clinical Pharmacist, Pharmacy Anticoagulation Clinic Pharmacy Anticoagulation Clinic Pager: [phone] documented in this encounterZanesville City Hospital07-10-2023 Miscellaneous Notes* Telephone Encounter - Alejandro Molina RPh - 04/24/2023 10:04 AM EDT [facility] Anticoagulation Episode Summary Anticoagulation Care Providers Provider Role Specialty Phone number Guanakito Reno MD [facility] [phone] Cal Mitchell is a 77 year old [...] Pharmacy Anticoagulation Clinic Pharmacy Anticoagulation Clinic Pager: [phone]. documented in this encounterZanesville City Hospital07-05-2023 Miscellaneous Notes* Telephone Encounter - Anna [...] patient. Leslie Perez Pss documented in this encounterZanesville City Hospital06-13-2023 Miscellaneous Notes* Telephone Encounter - Twin Cole [facility] - 03/28/2023 3:22 PM EDT [facility] Anticoagulation Episode Summary Anticoagulation Care Providers Provider Role Specialty Phone number Guanakito Reno MD [facility] Family Medicine [phone] Cal Mitchell is a 77 year old [...] Pharmacy Anticoagulation Clinic Pharmacy Anticoagulation Clinic Pager: [phone]. documented in this encounterZanesville City Hospital05-01-2023 History of Present illness Narrative* Dory Mayers RN - 02/13/2023 4:13 PM EDT EVENT MONITOR DISPOSABLE PATCH INSTRUCTIONS Patient Name: Cal Mitchell [facility] Number: [id number] Skin prepped and cleansed with alcohol Patch secured to prepped area Monitor Activated Serial #: [id number] Patient Instructed: Prescribed order timeframe Bathing guidelines Usage of event button and diary documentation Return of monitor at the end of prescribed order Call with problems [phone] or [phone] ext. [phone] Patient expresses a good understanding of instructions Dory Mayers RN * Pam Reddy MD - 02/13/2023 4:01 PM EDT Images from the original note were not included. Pam Reddy MD Interventional Cardiology [facility] [address], [place] [address] [phone] Chief Complaint Patient presents with: Established Patient [...] W/PATCH GRF CAROTID VERTB SUBCLAV NECK INC 7-12-27 RIGHT FAMILY HISTORY Problem Relation Age of [...] 8 hours as needed. blood sugar diagnostic ([employer] ULTRA TEST) test strip Test blood sugar(s) one times daily. Dx: 250.00. Insulin: No 150 Strip 3 Lancets (ONE TOUCH DELICA) [facility] lancets Test blood sugar(s) one time daily. [...] to correct any errors. documented in this encounterZanesville City Hospital04-24-2023 History of Present illness Narrative* Guanakito [...] 250.00. Insulin: No Lancets (ONE TOUCH DELICA) [facility] lancets Test blood sugar(s) one time daily. [...] vaccine - ICD9: V04.89, ICD10: Z23 - CoupFlip-BIONTArt of the Dream COVID-19 BIVALENT VACCINE, AGE 12+ YR Guanakito Reno MD documented in this encounterZanesville City Hospital04-03-2023 Miscellaneous Notes* Telephone Encounter - Corrina [...] notify patient. Winifred Zazueta documented in this encounterZanesville City Hospital03-30-2023 Miscellaneous Notes* Telephone Encounter - Jimmy Carrizales [facility] - 01/12/2023 4:25 PM EDT [facility] Anticoagulation Episode Summary Anticoagulation Care Providers Provider Role Specialty Phone number Guanakito Reno MD [facility] Family Medicine [phone] Cal Mitchell is a 77 year old [...] 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: care home (current) use of anticoagulants Paroxysmal atrial fibrillation [...] verbalizes understanding of the plan. Jimmy Carrizales RPh Clinical Pharmacist, Pharmacy Anticoagulation Clinic Pharmacy Anticoagulation Clinic Pager: [phone]. * Telephone Encounter - Ruthie Cuevas RPh - 01/11/2023 9:21 AM EDT [facility] Anticoagulation Episode Summary Anticoagulation Care Providers Provider Role Specialty Phone number Guanakito Reno MD 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 * Telephone Encounter - Alejandro Molina RPh - 01/09/2023 4:34 PM EDT Patient was due to test INR today. Will continue to monitor for results. documented in this encounterZanesville City Hospital03-06-2023 Miscellaneous Notes* Telephone Encounter - Alejandro Molina RPh - 12/19/2022 10:[address] [facility] Pharmacy Anticoagulation Clinic Anticoagulation Episode Summary Anticoagulation Care Providers Provider Role Specialty Phone number Guanakito Reno MD Responsible [facility] [phone] Cal Mitchell is a 77 year old [...] instructed to call [facility] at [phone] with any questionsor concerns. Alejandro Molina bobbi Clinical Pharmacist, Pharmacy Anticoagulation Clinic Pharmacy Anticoagulation Clinic Pager: [phone] documented in this encounterZanesville City Hospital02-13-2023 Miscellaneous Notes* Telephone Encounter - Alejandro Molina RPh - 11/28/2022 10:[address] [facility] Pharmacy Anticoagulation Clinic Anticoagulation Episode Summary Anticoagulation Care Providers Provider Role Specialty Phone number Guanakito Reno MD [facility] [phone] Cal Mitchell is a 77 year old [...] 11/28/2022 Full warfarin instructions: 7.5 mg every e, Kaye; 5 mg all other days Left voice message Advised patient to decrease dose for 1 day only then resume weekly regimen Next INR check due on 12/09/2022 Patient instructed to call [facility] at [phone] with any questionsor concerns. Alejandro Molina RPh Clinical Pharmacist, Pharmacy Anticoagulation Clinic Pharmacy Anticoagulation Clinic Pager: [phone] documented in this encounterZanesville City Hospital02-03-2023 Miscellaneous Notes* Telephone Encounter - Kamran Ayon RPh - 11/18/2022 12:49 PM EST Patient due to test INR today. Will continue to monitor for results. Kamran Ayon RPh documented in this encounterZanesville City Hospital01-20-2023 Miscellaneous Notes* Telephone Encounter - Kamran Ayon RPh - 11/04/2022 8:02 AM EST [facility] Anticoagulation Episode Summary Anticoagulation Care Providers Provider Role Specialty Phone number Guanakito Reno MD [facility] Internal Medicine [phone] Cal Mitchell is a 77 year old [...] 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: care home (current) use of anticoagulants Paroxysmal atrial fibrillation (hcc) Anticoagulation Episode Summary Current INR goal: 2.0-3.0 Assessment: INR result of 2.2 is therapeutic Plan: Current Warfarin Dosing As of 11/04/2022 Full warfarin instructions: 7.5 mg every Tu, Kaye; 5 mg all other days; Starting 11/04/2022 Sent G4S message Advised patient to continue current weekly dose as noted above Next home INR check scheduled on 11/18/2022 Kamran Ayon RPh Clinical Pharmacist, Pharmacy Anticoagulation Clinic Pharmacy Anticoagulation Clinic Pager: [phone]. documented in this encounterZanesville City Hospital01-17-2023 Miscellaneous Notes* Telephone Encounter - Twin Cole RPh - 11/01/2022 10:30 AM EST Patient due to test INR today. Will continue to monitor for results. Twin Cole RPh documented in this encounterZanesville City Hospital01-10-2023 Miscellaneous Notes* Telephone Encounter - Twin Cole RPh - 10/25/2022 4:30 PM EST [facility] Anticoagulation Episode Summary Anticoagulation Care Providers Provider Role Specialty Phone number Guanakito Reno MD 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 Plan: Current Warfarin Dosing As of 10/19/2022 Full warfarin instructions: 10/25: 5 mg; Otherwise 7.5 mg every Mon, Mon; 5 mg all other days; Starting 10/19/2022 Called and spoke to patient/caregiver spouse Advised patient to decrease dose for 1 day only then resume weekly regimen Next home INR check scheduled on 11/01/2022 Patient's caregiver verbalizes understanding of the plan. Twin Cole RPh Clinical Pharmacist, Pharmacy Anticoagulation Clinic Pharmacy Anticoagulation Clinic Pager: [phone]. * Telephone Encounter - Ruthie Cuevas RPh - 10/19/2022 4:33 PM EST Patient was due to test INR today will continue to monitor for results. Ruthie Cuevas PharmD documented in this encounterZanesville City Hospital12-20-2022 History of Present illness Narrative* Alondra Prescott DO - 10/04/2022 10:58 AM EST This office note has been dictated. Alondra Prescott DO * Alondra Prescott DO - 10/04/2022 12:00 AM EST NAME: CAL MITCHELL [facility] NO: [id number] DATE OF SERVICE: 10/04/2022 Subjective: Mr. Mitchell [...] concerns. Alondra Prescott D.O. KB/089 Audio #: [id number] Date Dictated: 10/04/2022 10:13:59 Date Typed: 10/05/2022 14:12:47 Date Revised: documented in this encounterZanesville City Hospital12-15-2022 Miscellaneous Notes* Telephone Encounter - Jimmydeepak Carrizales, [facility] - 09/29/2022 4:38 PM EST [facility] Anticoagulation Episode Summary Anticoagulation Care Providers Provider Role Specialty Phone number Guanakito Reno MD [facility] Family Medicine [phone] Cal Mitchell is a 77 year old [...] 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: care home (current) use of anticoagulants Paroxysmal atrial fibrillation [...] 09/29: 5 mg; Otherwise 7.5 mg every Mon, Kaye; 5 mg all other days; Starting 09/21/2022 Called and spoke to patient/caregiver - January patient's daughter Advised patient to increase total weekly regimen Next home INR check scheduled on 10/19/2022 Patient's caregiver verbalizes understanding of the plan. Patient denies need for refills. Jimmy Carrizales RPh Clinical Pharmacist, Pharmacy Anticoagulation Clinic Pharmacy Anticoagulation Clinic Pager: [phone]. * Telephone Encounter - Ruben Cunningham (Motorcycle Assembler) - 09/29/2022 2:23 PM EST PATIENT CALL [...] stated she lets blocked calls go to [employer]. She asked if she needed to be near the meterto report the results over the phone to [facility]--advised her I am not sure. January can be reached at [phone] Ruben Cunningham ([employer]) * Telephone Encounter - Ruthie Cuevas RPh [...] PharmD Pharmacy Anticoagulation Clinic documented in this encounterZanesville City Hospital12-09-2022 Miscellaneous Notes* Telephone Encounter - Yasemin [...] and advise. Yasemin Cook documented in this encounterZanesville City Hospital12-01-2022 Miscellaneous Notes* Telephone Encounter - Yamilka [...] asked for and not patient's name. Messaged Bonita at [facility]. Apurva Heath RN Pharmacy Anticoagulation Clinic * Telephone Encounter - Jimmy Carrizales [facility] - 09/15/2022 10:24 AM EST [facility] Anticoagulation Episode Summary Anticoagulation Care Providers Provider Role Specialty Phone number Guanakito Reno MD [facility] Medicine [phone] Cal Mitchell is a 77 year old [...] 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: care home (current) use of anticoagulants Paroxysmal atrial fibrillation (hcc) Anticoagulation Episode Summary Current INR goal: 2.0-3.0 Assessment: INR result of is SUBtherapeutic due to: unknown cause - did not speak to patient Plan: Current Warfarin Dosing As of 08/22/2022 Full warfarin instructions: 09/15: 7.5 mg; Otherwise 7.5 mg every Tue; 5 mg all other days; Brcvdjqo97/7/2022 Called and spoke to patient/caregiver - per demographics we only have daughter's phone number but no identifier Advised patient to increase dose for 1 day only then resume weekly regimen Next home INR check scheduled on 09/21/2022 Jimmy Carrizales RPh Clinical Pharmacist, Pharmacy Anticoagulation Clinic Pharmacy Anticoagulation Clinic Pager: [phone]. * Telephone Encounter - Alejandro Molina RPh - 09/05/2022 5:31 PM EST Added to discharge list. * Telephone Encounter - Ruthie Cuevas RPh - 08/29/2022 4:49 PM EST Cal Mitchell was called and reminded to test INR today or as soon as possible. LM on his home/cell number. Ruthie Cuevas PharmD Pharmacy Anticoagulation Clinic * Telephone Encounter - Alejandro Molina RPh - 08/22/2022 4:42 PM EST Patient was due to test INR today. Will continue to monitor for results. documented in this encounterZanesville City Hospital11-23-2022 History of Present illness Narrative* Lizette Cardenas RN - 09/07/2022 6:24 AM EST ACM LUIS RN Action/FYI: Medication Adherence review completed per request of [facility]. NO PROVIDER ACTION REQUIRED Lisinopril/Hctz 20-12.5mg Last filled: 05/21/22 Days Supply: 90 Refill Due: 08/19/22 Pharmacy: [facility] Atorvastatin 80mg Last filled: 03/20/22 Days Supply: 90 Refill Due: 06/28/22 Pharmacy: [facility] MY CHART MESSAGE SENT Patient identified by name and date of . Patient Attributed To: QAE Payer: [employer] [place] Reason for review or outreach: Medication Adherence Medication Adherence Review Details: Cholesterol and Hypertension Summary / Findings: As per above Action Taken: Data submitted to Cogo message to patient Contact made with patient: No, Chart review only. Signature: Lizette Cardenas RN documented in this encounterZanesville City Hospital10-31-2022 History of Present illness Narrative* Pam Reddy MD - 08/15/2022 3:48 PM EDT Images from the original note were not included. Pam Reddy MD Interventional Cardiology [facility] [address], [place] [address] [phone] Chief Complaint Patient presents with: Consult HISTORY [...] 150 Strip 3 Lancets (ONE TOUCH DELICA) [facility] lancets Test blood sugar(s) one time daily. [...] 114/62 Pulse 58 Resp 18 Ht 5' 9 (1.75m) Wt 263 lb (119.3kg) SpO2 98% [...] to correct any errors. documented in this encounterZanesville City Hospital10-17-2022 Miscellaneous Notes* Telephone Encounter - Alejandro Molina RPh - 08/01/2022 9:52 AM EDT [facility] Anticoagulation Episode Summary Anticoagulation Care Providers Provider Role Specialty Phone number Guanakito Reno MD [facility] [phone] Cal Mitchell is a 77 year old [...] instructed to call [facility] at [phone] with any questionsor concerns. Alejandro Molina RPh Clinical Pharmacist, Pharmacy Anticoagulation Clinic Pharmacy Anticoagulation Clinic Pager: [phone] documented in this encounterZanesville City Hospital10-07-2022 Miscellaneous Notes* Telephone Encounter - Darrell [...] advise. Darrell Meyer LPN documented in this encounterZanesville City Hospital09-20-2022 Miscellaneous Notes* Telephone Encounter - Twin Mooneynicole [facility] - 07/05/2022 9:30 AM EDT [facility] Anticoagulation Episode Summary Anticoagulation Care Providers Provider Role Specialty Phone number Guanakito Reno MD [facility] [phone] Cal Mitchell is a 77 year old [...] Pharmacy Anticoagulation Clinic Pharmacy Anticoagulation Clinic Pager: [phone]. * Telephone Encounter - Alejandro Molina RPh - 07/04/2022 3:42 PM EDT Cal Mitchell was called and reminded to test INR today or as soon as possible. * Telephone Encounter - Alejandro Molina RPh - 2022 4:11 PM EDT Patient was due to test INR today. Will continue to monitor for results. documented in this encounterZanesville City Hospital08-30-2022 Miscellaneous Notes* Telephone Encounter - Twin Cole RPh - 06/14/2022 9:14 AM EDT [facility] Anticoagulation Episode Summary Anticoagulation Care Providers Provider Role Specialty Phone number Guanakito Reno MD [facility] [phone] Cal Mitchell is a 76 year old [...] Pharmacy Anticoagulation Clinic Pharmacy Anticoagulation Clinic Pager: [phone]. * Telephone Encounter - Val Oliver RPh - 06/13/2022 9:09 AM EDT MyChart message sent as a reminder to test INR RAISSA. * Telephone Encounter - Alejandro Molina RPh - 06/06/2022 4:50 PM EDT Patient was due to test INR today. Will continue to monitor for results. documented in this encounterZanesville City Hospital08-30-2022 History of Present illness Narrative* Nirmala Lim MA - 06/14/2022 9:03 AM EDT POPULATION HEALTH NAVIGATION OUTREACH Action/FYI Called and left a message to call [phone], to discuss health maintenance items that are due. Sent My Chart message. PCP appt: 01/19- needs follow up per last ov note My chart activation: active Advance directive: needs info HM due: Follow up ARIAN AD Pt identified by name and : NO Outreach Outcome/Action Unable to reach patient: Left message Swan Inchart message sent Did you use a PCP flex slot to schedule this appointment? N/A Reason for Outreach Care Gap or Scheduling/Wellness visits Payer: Payor: [employer] A[employer] MEDICARE / Plan: [employer] AARP MEDICARE HMO [...] 14, 2022 9:05 AM documented in this encounterZanesville City Hospital08-04-2022 Miscellaneous Notes* Telephone Encounter - Huong hWittaker Ma - 05/19/2022 12:50 PM EDT Patient [...] 05/19/2022 11:56 AM EDT Pharmacy verified in [facility] Patient has been identified by name [...] 121.1 kg (267 lb) Please advise. Yasemin Horne documented in this encounterZanesville City Hospital08-01-2022 Miscellaneous Notes* Telephone Encounter - Alejandro Molina [facility] - 05/16/2022 11:54 AM EDT [facility] Anticoagulation Episode Summary Anticoagulation Care Providers Provider Role Specialty Phone number Guanakito Reno MD [facility] [phone] Cal Mitchell is a 76 year old [...] instructed to call [facility] at [phone] with any questionsor concerns. Alejandro Molina RPh Clinical Pharmacist, Pharmacy Anticoagulation Clinic Pharmacy Anticoagulation Clinic Pager: [phone] documented in this encounterZanesville City Hospital07-11-2022 Miscellaneous Notes* Telephone Encounter - Val Oliver RPh - 04/25/2022 7:56 AM EDT Last INR due around 04/18. MyChart message sent as a reminder to test INR RAISSA. PT INR (no units) Date Value 01/24/2022 2.1 biotel 10/26/2021 2.1 (Biotel) 03/04/2021 2.4 INR Home CoaguChek (no units) Date Value 04/02/2022 2.2 03/09/2022 2.6 02/10/2022 3.4 documented in this encounterZanesville City [facility] Misc[facility] Notes* Telephone Encounter - Ruthie [...] either. Ruthie Cuevas PharmD documented [facility] Miscellaneous Notes* Telephone Encounter - Nicki Nieto - 03/16/2022 10:46 AM EDT Patient is scheduled for an appt on 03/22/22 in [place]. Did call the patient to see if any external imagine has been complete, left VM to call the office Or record indicates no testing has been completed since 2019 Would you like an updated carotid US Order pending please sign if correct Thanks documented [facility] Miscellaneous Notes* Telephone Encounter - Ruthie Cuevas RPh - 03/09/2022 4:08 PM EDT [facility] Anticoagulation Episode Summary Anticoagulation Care Providers Provider Role Specialty Phone number Guanakito Reno MD [facility] [phone] Cal Mitchell is a 76 year old [...] 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: 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 Plan: Called and spoke to patient/caregiver Advised patient to continue current weekly dose Next home INR check scheduled on 03/23/2022 Ruthie Cuevas RPh Clinical Pharmacist, Pharmacy Anticoagulation Clinic Pharmacy Anticoagulation Clinic Pager: [phone] . documented in this encounterZanes[facility]05-05-[facility]22 Miscellaneous Notes* Telephone Encounter - Jazmyn Garcia RPh - 02/17/2022 1:17 PM EDT Patient due to test INR today. Will continue to monitor for results. Jazmyn Garcia RPh documented in [facility] encounterZ[facility]04-29-2022 Miscellaneous Notes* Telephone Encounter - Denisse Hutchinson RPh - 02/11/2022 8:21 AM EDT [facility] Anticoagulation Episode Summary Anticoagulation Care Providers Provider Role Specialty Phone number Guanakito Reno MD [facility] [phone] Cal Mitchell is a 76 year old [...] 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: care home (current) use of anticoagulants Paroxysmal atrial fibrillation (hcc) Anticoagulation Episode Summary Current INR goal: 2.0-3.0 Assessment: INR result of is SUPRAtherapeutic due to: unknown cause - did not speak to patient Plan: Sent [employer] message Advised patient to decrease dose for 2 days only then resume weekly regimen Next home INR check scheduled on 02/17/2022 Denisse Hutchinson RPh Clinical Pharmacist, Pharmacy Anticoagulation Clinic Pharmacy Anticoagulation Clinic Pager: [phone] . * Telephone Encounter - Twin Cole RPh - 02/08/2022 4:00 PM EDT Patient due to test INR today. Will continue to monitor for results. Twin Cole RPh documented in this encounterZ[facility]04-12-2022 Miscellaneous Notes* Telephone Encounter - Twin Cole RPh - 01/25/2022 9:15 AM EDT [facility] Anticoagulation Episode Summary Anticoagulation Care Providers Provider Role Specialty Phone number Guanakito Reno MD [facility] [phone] Cal Mitchell is a 76 year old [...] Pharmacy Anticoagulation Clinic Pharmacy Anticoagulation Clinic Pager: [phone] . documented in this encounterZanesville City Hospital04-06-2022 History of Present illness Narrative* Guanakito [...] No. Dementia: Had previously been following with [facility]. Last visit 08/2020. Doesn't have anything further scheduled. Doesn't really want to go to [place], but appears last visit was distance. Does not drive. Lives w/ daughter. Stays up late at night and sleep during the day. A. Fib: Chronic anticoagulation. Denies any hematochezia/melena. Daughter does home checks. Follows w/ pharmacy. occ fall with no significant injury. Had been following with [place] [facility], but unsure when he was last seen there. Diabetes. Does not check home blood sugars. Reports compliance w/ medication. Carotid artery stenosis. Follows w/ vascular. Last visit 10/20/20. Recommended follow-up with cardiology and then Dr. Devries in [place]. He did have echo done. Unsure if he followed up with [place] [facility]. Per note, they wanted to establish with [facility]. BPH Stable. Up X 2 overnight. [...] Abs Lymph 1.00 - 4.00 k/uL 1.65 [place]% % 7.4 Abs [place] <0.87 k/uL 0.53 Eosin% % 8.2 Abs [...] Negative Negative Ketones, Urine Negative Negative Specific [place], Ur 1.005 - 1.030 1.016 Hemoglobin/Blood,Ur Negative [...] 8 hours as needed. blood sugar diagnostic (appsplitTOUCH ULTRA TEST) test strip Test blood sugar(s) one times daily. Dx: 250.00. Insulin: No Lancets (ONE TOUCH DELICA) [facility]anc[place] Test blood sugar(s) one time daily. [...] three months and prn. documented in this encounterZanesville [facility] Hospital03-31-2022 Miscellaneous Notes* Telephone Encounter - Jazmyn Garcia RPh - 01/13/2022 2:33 PM EDT Patient due to test INR today. Will continue to monitor for results. Jazmyn Garcia RPh documented in this encounterZanesville [facility] Hospital11-11-2020 History of Past illness Narrative* Problem [...] of this encounter (statuses as of 08/15/2023) [facility] Narrative* Problem [...] of this encounter (statuses as of 08/15/2023) [facility] Narrative* Problem [...] of this encounter (statuses as of 08/16/2023) [facility] N[facility]* Problem [...] of this encounter (statuses as of 08/23/2023) [facility] N[facility]ative* Problem [...] of this encounter (statuses as of 09/06/2023) [facility] N[facility]* Problem [...] of this encounter (statuses as of 09/20/2023) [address]11-2020 History of Past illness Narrative* Problem Noted [...] of this encounter (statuses as of 12/04/2023) [facility]* Problem [...] of this encounter (statuses as of 12/21/2023) [facility]* Problem [...] of this encounter (statuses as of 12/21/2023) [facility]* Problem [...] of this encounter (statuses as of 12/22/2023) [facility]* Problem [...] of this encounter (statuses as of 01/15/2024) [facility] N[facility]* Problem [...] of this encounter (statuses as of 01/18/2024) [facility]* Problem [...] of this encounter (statuses as of 01/19/2022) [facility]* Problem [...] of this encounter (statuses as of 01/25/2022) [facility] Problem [...] of this encounter (statuses as of 02/11/2022) [facility] Problem [...] of this encounter (statuses as of 03/09/2022) [facility] Problem [...] of this encounter (statuses as of 03/17/2022) [facility] Problem [...] of this encounter (statuses as of 03/18/2022) [facility] Problem [...] of this encounter (statuses as of 04/04/2022) [facility] Problem [...] of this encounter (statuses as of 04/25/2022) [facility] Problem [...] of this encounter (statuses as of 05/13/2022) [facility] Problem [...] of this encounter (statuses as of 05/16/2022) [facility] Problem [...] of this encounter (statuses as of 05/19/2022) [facility] Problem [...] of this encounter (statuses as of 06/14/2022) [facility] Problem [...] of this encounter (statuses as of 07/05/2022) [facility] Problem [...] of this encounter (statuses as of 07/22/2022) [facility] Problem [...] of this encounter (statuses as of 08/01/2022) [facility] Problem [...] of this encounter (statuses as of 08/15/2022) [facility] Problem [...] of this encounter (statuses as of 09/07/2022) [facility] Problem [...] of this encounter (statuses as of 09/15/2022) [facility] Problem [...] of this encounter (statuses as of 09/23/2022) [facility] Problem [...] of this encounter (statuses as of 09/29/2022) [facility] Problem [...] of this encounter (statuses as of 10/16/2022) [facility] Problem [...] of this encounter (statuses as of 10/25/2022) [facility] Problem [...] of this encounter (statuses as of 11/04/2022) [facility] Problem [...] of this encounter (statuses as of 11/08/2022) [facility] Problem [...] of this encounter (statuses as of 11/18/2022) [facility] Problem [...] of this encounter (statuses as of 11/28/2022) [facility] Problem [...] of this encounter (statuses as of 12/19/2022) [facility] Problem [...] of this encounter (statuses as of 01/12/2023) [facility] Problem [...] of this encounter (statuses as of 01/16/2023) [facility] Problem [...] of this encounter (statuses as of 02/07/2023) [facility] Problem [...] of this encounter (statuses as of 02/14/2023) [facility]* Problem [...] of this encounter (statuses as of 03/29/2023) [facility]* Problem Noted Date Resolved Date Cutaneous skin tags 03/29/2011 05/24/2018 SK (seborrheic keratosis) 01/26/20112019 AK (actinic keratosis) 01/26/2011 0 Skin tags 01/26/2011 03/29/2011 Pain in joint, shoulder region 12/07/2009 0 01/29/2020 Pain in limb 02/15/2008 04/22/2009 OTHER ABNORMAL GLUCOSE 10/12/200510/02/ 6 Dysmetabolic syndrome X 06/24/2005 11/27/19 10 Other symptoms involving cardiovascular system 07/20/2016 Actinic keratosis 10/12/2005 Impacted cerumen 10/12/2005 COPD (chronic obstructive pulmonary disease) 01/29/2020 documented as of this encounter (statuses as of 04/20/2023) [facility]* Problem [...] of this encounter (statuses as of 04/24/2023) [facility]* Problem [...] of this encounter (statuses as of 05/22/2023) [facility]* Problem [...] of this encounter (statuses as of 06/28/2023) [facility]* Problem [...] of this encounter (statuses as of 07/05/2023) [facility]* Problem [...] of this encounter (statuses as of 07/27/2023) 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 Long-term (current) use of anticoagulants Paroxysmal atrial fibrillation (HCC) Atrial fibrillation [facility] Diagnosis 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 Long-term (current) use of anticoagulants Paroxysmal atrial fibrillation (HCC) Atrial [facility] care [facility] (current) use of anticoagulants- Primary Long-term (current) use of anticoagulants Paroxysmal atrial fibrillation (HCC) Atrial fibrillation [facility] Diagnosis Bilateral carotid artery stenosis- Primary Occlusion and stenosis of carotid artery without mention of cerebral infarction Stenosis of left carotid artery Occlusion and stenosis of carotid artery without mention of cerebral infarction [facility] Diagnosis 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 Long-term (current) use of anticoagulants Paroxysmal atrial fibrillation (HCC) [facility]rial [facility] Diagnosis Benign prostatic hyperplasia without lower urinary tract symptoms Mixed dementia (HCC) Essential hypertension with goal blood pressure less than 140/90 Lung nodule Solitary pulmonary nodule Paroxysmal atrial fibrillation (HCC) Atrial fibrillation [facility] Diagnosis Paroxysmal atrial fibrillation (HCC) Atrial fibrillation [facility] Diagnosis Obesity, Class II, BMI 35-39.9- Primary Obesity, unspecified Paroxysmal atrial fibrillation (HCC) Atrial fibrillation Nonrheumatic aortic valve stenosis Aortic valve disorders Aortic valve disorder Aortic valve disorders [facility]* Diagnosis care home (current) use of anticoagulants- Primary Long-term (current) use of anticoagulants Paroxysmal atrial fibrillation (HCC) Atrial fibrillation [facility] Diagnosis Essential hypertension with goal blood pressure less than 140/90 [facility] Diagnosis care home (current) use of anticoagulants- Primary Long-term (current) use of anticoagulants Paroxysmal atrial fibrillation (HCC) Atrial fibrillation [facility] Diagnosis Bilateral carotid artery stenosis- Primary Occlusion and stenosis of carotid artery without mention of cerebral infarction [facility]* Diagnosis care home (current) use of anticoagulants- Primary Long-term (current) use of anticoagulants Paroxysmal atrial fibrillation (HCC) Atrial fibrillation [facility] Diagnosis Essential hypertension with goal blood pressure less than 140/90 [facility]* Diagnosis Essential hypertension with goal [...] for COVID-19 vaccine [facility] Diagnosis Syncope, unspecified syncope type- Primary Aortic valve disorder Aortic valve disorders [facility] Diagnosis Paroxysmal atrial fibrillation (HCC) Atrial fibrillation Essential hypertension with goal blood pressure less than 140/90 Benign prostatic hyperplasia without lower urinary tract symptoms Mixed dementia (HCC) Lung nodule Solitary pulmonary nodule Type 2 diabetes mellitus with stage 3 chronic kidney disease, without long-term current use of insulin (HCC) [facility] Diagnosis Essential hypertension with goal blood pressure less than 140/90 [facility] Diagnosis care home (current) use of anticoagulants- Primary Long-term (current) use of anticoagulants Paroxysmal atrial fibrillation (HCC) Atrial fibrillation [facility] Diagnosis Onychomycosis- Primary Dermatophytosis of [...] kidney disease (HCC) [facility]* Diagnosis Renal insufficiency- Primary Unspecified disorder of kidney and ureter [facility]* Diagnosis 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 Long-term (current) use of anticoagulants Paroxysmal atrial fibrillation (HCC) Atrial fibrillation [facility]* Diagnosis care home (current) use of anticoagulants- Primary Long-term (current) use of anticoagulants Paroxysmal atrial fibrillation (HCC) Atrial fibrillation [facility] Diagnosis Abrasion of arm, left, initial encounter- Primary Chronic insomnia Insomnia, unspecified [facility]* Diagnosis Essential hypertension with goal blood pressure less than 140/90 Paroxysmal atrial fibrillation (HCC) Atrial fibrillation [facility]* Diagnosis Lung nodule Solitary pulmonary nodule [facility]* Diagnosis 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 Long-term (current) use of anticoagulants Paroxysmal atrial fibrillation (HCC) Atrial fibrillation [facility] Diagnosis Syncope, unspecified syncope type- Primary Aortic valve disorder Aortic valve disorders Paroxysmal atrial fibrillation (HCC) Atrial fibrillation Ectatic thoracic aorta (HCC) 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, without long-term current use of insulin (HCC) [facility] Diagnosis Essential hypertension- Primary Unspecified [...] or 3b CKD (HCC) Mixed dementia (HCC) care home (current) use of anticoagulants Long-term (current) use of anticoagulants Obesity, Class II, BMI 35-39.9 Obesity, unspecified Renal insufficiency Unspecified disorder of kidney and ureter Anemia, unspecified type [facility] Diagnosis care home (current) use of anticoagulants- Primary Long-term (current) use of anticoagulants Paroxysmal atrial fibrillation (HCC) Atrial fibrillation [facility]* Diagnosis CKD (chronic kidney disease) stage 4, 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/min ([facility])- Primary Chronic kidney disease, Stage IV (severe) Anemia, unspecified type [facility]* Diagnosis Essential hypertension- Primary Unspecified [...] Stage IV (severe) [facility]* Diagnosis 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* Diagnosis care home (current) use of anticoagulants- Primary Long-term (current) use of anticoagulants Paroxysmal atrial fibrillation (HCC) Atrial fibrillation documented in this encounter [facility]* Diagnosis Blood pressure check- Primary Screening for hypertension Leg swelling Swelling of limb 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 Long-term (current) use of anticoagulants Paroxysmal atrial fibrillation (HCC) Atrial fibrillation documented in this encounter [facility] note* Diagnosis Screen for colon cancer- Primary Special screening for malignant neoplasms, colon documented in this encounter [facility] note* Diagnosis 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 Long-term (current) use of anticoagulants Paroxysmal atrial fibrillation (HCC) Atrial fibrillation documented in this encounter [facility] note* Diagnosis Severe aortic stenosis [I35.0]- Primary Aortic valve disorders Valvular heart disease Endocarditis, valve unspecified, unspecified cause [facility] Diagnosis Nonrheumatic aortic valve stenosis- [...] unspecified cause documented in this encounter [facility]* Diagnosis Nonrheumatic aortic valve stenosis Aortic valve disorders Valvular heart disease Endocarditis, valve unspecified, unspecified cause documented in this encounter [facility] note* Diagnosis Essential hypertension- Primary Unspecified essential [...] disease, Stage IV (severe) Mixed dementia (HCC) care home (current) use of anticoagulants Long-term (current) use of anticoagulants Need for vaccination Need for prophylactic vaccination and inoculation against unspecified single disease Valvular heart disease Endocarditis, valve unspecified, unspecified cause [facility]* Diagnosis Essential hypertension- Primary Unspecified essential hypertension Valvular heart disease Endocarditis, valve unspecified, unspecified cause documented in this encounter [facility]* Diagnosis Paroxysmal atrial fibrillation (HCC)- Primary Atrial fibrillation Aortic valve stenosis, etiology of cardiac valve disease unspecified Valvular heart disease Endocarditis, valve unspecified, unspecified cause [facility]* Diagnosis Nonrheumatic aortic valve stenosis- Primary Aortic valve disorders Paroxysmal atrial fibrillation (HCC) Atrial fibrillation Valvular heart disease Endocarditis, valve unspecified, unspecified cause [facility] Diagnosis Nonrheumatic aortic valve stenosis Aortic valve disorders Encounter for preprocedural cardiovascular examination Pre-operative cardiovascular examination documented in this encounter [facility] note* Diagnosis care home (current) use of anticoagulants- Primary Long-term (current) use of anticoagulants Paroxysmal atrial fibrillation (HCC) Atrial fibrillation documented in this encounter [facility] note* Diagnosis Bilateral carotid artery stenosis- Primary Occlusion and stenosis of carotid artery without mention of cerebral infarction History of carotid endarterectomy Other postprocedural status [facility]* Diagnosis care home (current) use of anticoagulants- Primary Long-term (current) use of anticoagulants Paroxysmal atrial fibrillation (HCC) Atrial fibrillation 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 Long-term (current) use of anticoagulants Paroxysmal atrial fibrillation (HCC) Atrial fibrillation documented in this encounter [facility] note* Diagnosis Paroxysmal atrial fibrillation (HCC) Atrial fibrillation documented in this encounter [facility] for referral (narrative)* Outpatient Procedure (Routine) - Pending Review Specialty Diagnoses / Procedures Referred By Contac t Referred To Contact [facility] Diagnoses Bilateral carotid artery stenosis Procedures US CAROTID ARTERIES GRAY VAS LAB DUPLEX SCAN EXTRACRANIAL ART COMPL BI STUDY Alondra Prescott DO [address] [place] [address] [facility] [address] [address] Referral ID Status Reason Start Date Expiration Date Visits Requested Visits Authorized [id number] Pending Review Auto-Generat ed Referral 03/18/2022 03/16/2023 1 1 [facility] for referral (narrative)* Outpatient Procedure (Routine) - Authorized Specialty Diagnoses / Procedures Referred By Contac t Referred To Contact [facility] Diagnoses Nonrheumatic aortic valve stenosis Procedures ECHO ECHO TTHRC R-T 2D W/WOM-MODE COMPL SPEC&COLR Pam Velazco MD [address] [place] [address] [facility] [address] [address] Referral ID Status Reason Start Date Expiration Date Visits Requested Visits Authorized [id number] Authorized Auto-Generat ed Referral 08/22/2022 08/15/2023 1 1 [facility] for referral (narrative)* Outpatient Procedure (Routine) - Pending Review Specialty Diagnoses / Procedures Referred By Contac t Referred To Contact [facility] Diagnoses Bilateral carotid artery stenosis Procedures US CAROTID ARTERIES GRAY VAS LAB DUPLEX SCAN EXTRACRANIAL ART COMPL BI STUDY Alondra Prescott, [address] [place] [address] [facility] [address] [place] [address] Referral ID Status Reason Start Date Expiration Date Visits Requested Visits Authorized [id number] Pending Review Auto-Generat ed Referral 2 10/04/2023 1 1 [facility] for referral (narrative)* Outpatient Procedure (Routine) - Authorized Specialty Diagnoses / Procedures Referred By Contac t Referred To Contact [facility] Diagnoses Syncope, unspecified syncope type Aortic valve disorder Procedures ECHO ECHO TTHRC R-T 2D W/WOM-MODE COMPL SPEC&COLR D Pam Reddy MD [address] [place] [address] [id number] [place] [address] Referral ID Status Reason Start Date Expiration Date Visits Requested Visits Authorized [id number] Authorized Auto-Generat ed Referral 02/20/2023 02/13/2024 1 1 [facility] for referral (narrative)* Outpatient Procedure (Routine) - Pending Review Specialty Diagnoses / Procedures Referred By Contac t Referred To Contact [facility] Diagnoses Syncope, unspecified syncope type Aortic valve disorder Procedures ECHO ECHO TTHRC R-T 2D W/WOM-MODE COMPL SPEC&COLR Pam Velazco MD [address], [address] [place] [address] [facility] [place] [address] [place] [address] Referral ID Status Reason Start Date Expiration Date Visits Requested Visits Authorized [id number] Pending Review Auto-Generat ed Referral 04/08/2024 03/25/2025 1 1 * Outpatient Procedure (Routine) - Pending Review Specialty Diagnoses / Procedures Referred By Contac t Referred To Contact [facility] Diagnoses Syncope, unspecified syncope type Aortic valve disorder Paroxysmal atrial fibrillation (HCC) Procedures ECG COMPLETE ECG ROUTINE ECG W/LEAST 12 LDS W/I&R Pam Reddy MD [address], [address] [place] [address] [facility] [address] [place] [address] Referral ID Status Reason Start Date Expiration Date Visits Requested Visits Authorized [id number] Pending Review Auto-Generat ed Referral 03/21/2024 03/21/2025 1 1 [facility] for referral (narrative)* Diagnostic Procedure Only (Routine) - Authorized Specialty Diagnoses / Procedures Referred By Juveac t Referred To Contact [facility] Diagnoses Renal insufficiency Procedures US KIDNEY/BLADDER US RETROPERITONEAL REAL TIME W/IMAGE COMPLETE Guanakito Reno MD [address] [place] [address] [facility] Referral ID Status Reason Start Date Expiration Date Visits Requested Visits Authorized [id number] Authorized Auto-Generat ed Referral 03/26/2024 04/25/2025 1 1 * Outpatient Procedure (Routine) - Pending Review Specialty Diagnoses / Procedures Referred By Contac t Referred To Contact [facility] Diagnoses History of carotid endarterectomy Procedures US CAROTID ARTERIES GRAY VAS LAB DUPLEX SCAN EXTRACRANIAL ART COMPL BI STUDY Guanakito Reno MD [address] [place] [address] [facility] [place] [address] [place] [address] Referral ID Status Reason Start Date Expiration Date Visits Requested Visits Authorized [id number] Pending Review Auto-Generat ed Referral 03/26/2024 03/26/2025 1 1 [facility] for referral (narrative)* Diagnostic Procedure Only (Routine) - Closed Specialty Diagnoses / Procedures Referred By Contac t Referred To Contact [facility] Diagnoses Renal insufficiency Procedures US KIDNEY/BLADDER US RETROPERITONEAL REAL TIME W/IMAGE COMPLETE Guanakito Reno MD [address] [place] [address] [place] [address] Referral ID Status Reason Start Date Expiration Date V isits Requested Visits Authorized [id number] Closed Auto-Generate d Referral 03/26/2024 04/25/2025 1 1 [facility] for referral (narrative)* Diagnostic Procedure Only (Routine) - New Request Specialty Diagnoses / Procedures Referred By Contac t Referred To Contact [facility] Diagnoses Bilateral carotid artery stenosis History of carotid endarterectomy Procedures US CAROTID BILATERAL Laura Iraheta MD [address] [facility] [address] [place] [address] [place] [address] Referral ID Status Reason Start Date Expiration Date Visits Requested Visits Authorized [id number] New Request Auto-Generat ed Referral 09/05/2025 1 1 [facility] Summary Purpose Family History No Family History Records Found Relationship Condition Age at Onset Recorded Date/T lillian mother Congestive heart failure Unknown grandfather Cerebrovascular accident (CVA) Unknown Advance Directives No Advanced Directives Records Found Advance Directive Response Recorded Date/ Time Advance Directives No March 06 4:19pm Reason for Referral Specialty Diagnoses / Procedures Referred By Contraudel t Referred To Contact Diagnoses Mixed dementia (HCC) Guanakito Reno MD [address] [place] [address] Referral ID Status Reason Start Date Expiration Date Visits Re quested Visits Authorized [id number] Closed 1 1 Referral ID Status Reason Start Date Expiration Date Visits Re quested Visits Authorized [id number] Closed 1 1 Specialty Diagnoses / Procedures Referred By Contac t Referred To Contact Podiatry Diagnoses Onychomycosis Procedures CONSULT TO PODIATRY OFFICE/OUTPATIENT [facility] 60-74 MINUTES Guanakito Reno MD [address] [place] [address] Referral ID Status Reason Start Date Expiration Date Visits Requested Visits Authorized [id number] Pending Review PCP Requested Referral 3 08/13/2024 1 1 Specialty Diagnoses / Procedures Referred By Contac t Referred To Contact Nephrology Diagnoses CKD (chronic kidney disease) stage 4, 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/min ([facility]) Anemia, unspecified type Procedures CONSULT TO NEPHROLOGY OFFICE/OUTPATIENT [facility] 60 MINUTES Guanakito Reno MD [address] [place] [address] Referral ID Status Reason Start Date Expiration Date Visits Requested Visits Authorized [id number] Authorized PCP Requested Referral 04/05/2024 04/05/2025 1 1 Specialty Diagnoses / Procedures Referred By Contac t Referred To Contact Vascular Surgery Diagnoses Stenosis of left carotid artery Procedures CONSULT TO VASCULAR SURGERY OFFICE/OUTPATIENT [facility] MDM 60 MINUTES Josselyn Mayer, [employer]LY [address] [place] [address] Laura Iraheta MD [address] [place] [address] Referral ID Status Reason Start Date Expiration Date Visits Requested Visits Authorized [id number] Authorized PCP Requested Referral 07/10/2024 07/10/2025 1 1 Specialty Diagnoses / Procedures Referred By Contac t Referred To Contact Nephrology Diagnoses Chronic kidney disease, unspecified CKD stage Anemia in chronic kidney disease, unspecified CKD stage Procedures CONSULT TO NEPHROLOGY Josselyn Mayer, [employer] [address] [place] [address] Eladio Remy MD [address] [place] [address] Referral ID Status Reason Start Date Expiration Date Visits Requested Visits Authorized [id number] Ref Not Required PCP Requested Referral 07/10/2024 07/10/2025 1 1 Specialty Diagnoses / Procedures Referred By Contac t Referred To Contact Gerontology Diagnoses Dementia, unspecified dementia severity, unspecified dementia type, unspecified whether behavioral, psychotic, or mood disturbance or anxiety (HCC) Procedures CONSULT TO GERIATRICS OFFICE/OUTPATIENT [facility] 60 MINUTES Josselyn Mayer, [employer]LY [address] [place] [address] Referral ID Status Reason Start Date Expiration Date Visits Requested Visits Authorized [id number] Authorized PCP Requested Referral 07/10/2024 07/10/2025 1 1 Specialty Diagnoses / Procedures Referred By Contac t Referred To Contact CT IMAGING Diagnoses Nonrheumatic aortic valve stenosis Encounter for preprocedural cardiovascular examination Procedures CTA CHEST (GATED) WO/W IVCON CT ANGIOGRAPHY CHEST W/CONTRAST/NONCONTRAST Josselyn Mayer, [employer] [address] [place] [address] [address] [address] [facility] Referral ID Status Reason Start Date Expiration Date Visits Requested Visits Authorized [id number] Authorized Auto-Generat ed Referral 07/10/2024 08/09/2025 1 1 Specialty Diagnoses / Procedures Referred By Contac t Referred To Contact CT IMAGING Diagnoses Nonrheumatic aortic valve stenosis Encounter for preprocedural cardiovascular examination Procedures CTA ABD/PEL W IVCON CT ANGIO ABD&PLVIS CNTRST MTRL W/WO CNTRST IMGES Josselyn Mayer, [employer]LY [address] [place] [address] [address] [place] [address] Referral ID Status Reason Start Date Expiration Date Visits Requested Visits Authorized [id number] Authorized Auto-Generat ed Referral 07/10/2024 08/09/2025 1 1 Referral ID Status Reason Start Date Expiration Date V isits Requested Visits Authorized [id number] Closed Auto-Generate d Referral 07/10/2024 08/09/2025 1 1 Referral ID Status Reason Start Date Expiration Date V isits Requested Visits Authorized [id number] Closed Auto-Generate d Referral 07/10/2024 08/09/2025 1 1 Chief Complaint and Reason for Visit Chief Complaint Admit Date RIGHT HUMERUS March 07, 2025 12:49 pm FRACTURE UPPER RIGHT HUMERUS. RX HERE Ale ne 2024 12:30pm RIGHT HUMERUS May 02, 2025 10:1 1am Room 1 May 02, 2025 10:2 9am Reason for Visit Admit Date Closed fracture of right proximal humeru s March 07, 2025 12:49pm Chief Complaint Admit Date RIGHT HUMERUS March 07, 2025 12:49 pm FRACTURE UPPER RIGHT HUMERUS. RX HERE Ale ne 2024 12:30pm LABWORK April 17, 2025 5:00a m [facility] LAB WORK April 24, 2025 5: 00am [facility] WORK April 29, 2025 6: 45am [facility] WORK May 01, 2025 5: 15am RIGHT HUMERUS May 02, 2025 10:1 1am Room 1 May 02, 2025 10:2 9am [facility] WORK May 06, 2025 4: 00am [facility] WORK May 08, 2025 5: 00am [facility] WORK May 13, 2025 5: 00am [facility] WORK May 15, 2025 5: 00am [facility] WORK May 20, 2025 4 :00am Reason for Visit Admit Date Closed fracture of right proximal humeru s March 07, 2025 12:49pm Closed fracture of right proximal humeru s May 02, 2025 10:11am Additional Source Comments (unrecognized sect ion and content) No Status Records FoundNo Status Records FoundNo Status Records FoundNo Status Records Found INFORMATION SOURCE (unrecogn ized section and content) DATE CREATED AUTHOR 04/06/2018 [facility] DATE CREATED AUTHOR AUTHOR'S ORGANIZ ATION 03/12/2025 [facility] DATE CREATED AUTHOR AUTHOR'S ORGANIZ ATION 05/07/2025 [facility] DATE CREATED AUTHOR AUTHOR'S ORGANIZ ATION 07/04/2025 [facility] Source Comments (unrecognize d section and content) In the event this informatio n is protected by the Federal Confidentiality of Alcohol and Drug Abuse Patient Records regulations: The Federal rules restrict any use of the information to criminally investigate or prosecute any alcohol or drug abuse patient.[facility] event this information is protected by the Federal Confidentiality of Alcohol and Drug Abuse Patient Records regulations: The Federal rules restrict any use of the information to criminally investigate or prosecute any alcohol or drug abuse patient.[facility] the event this information is protected by the Federal Confidentiality of Alcohol and Drug Abuse Patient Records regulations: The Federal rules restrict any use of the information to criminally investigate or prosecute any alcohol or drug abuse patient.[facility] the event this information is protected by the Federal Confidentiality of Alcohol and Drug Abuse Patient Records regulations: The Federal rules restrict any use of the information to criminally investigate or prosecute any alcohol or drug abuse patient.[facility] the event this information is protected by the Federal Confidentiality of Alcohol and Drug Abuse Patient Records regulations: The Federal rules restrict any use of the information to criminally investigate or prosecute any alcohol or drug abuse patient.[facility] the event this information is protected by the Federal Confidentiality of Alcohol and Drug Abuse Patient Records regulations: The Federal rules restrict any use of the information to criminally investigate or prosecute any alcohol or drug abuse patient.[facility] the event this information is protected by the Federal Confidentiality of Alcohol and Drug Abuse Patient Records regulations: The Federal rules restrict any use of the information to criminally investigate or prosecute any alcohol or drug abuse patient.[facility] the event this information is protected by the Federal Confidentiality of Alcohol and Drug Abuse Patient Records regulations: The Federal rules restrict any use of the information to criminally investigate or prosecute any alcohol or drug abuse patient.[facility] the event this information is protected by the Federal Confidentiality of Alcohol and Drug Abuse Patient Records regulations: The Federal rules restrict any use of the information to criminally investigate or prosecute any alcohol or drug abuse patient.[facility] the event this information is protected by the Federal Confidentiality of Alcohol and Drug Abuse Patient Records regulations: The Federal rules restrict any use of the information to criminally investigate or prosecute any alcohol or drug abuse patient.[facility] the event this information is protected by the Federal Confidentiality of Alcohol and Drug Abuse Patient Records regulations: The Federal rules restrict any use of the information to criminally investigate or prosecute any alcohol or drug abuse patient.[facility] the event this information is protected by the Federal Confidentiality of Alcohol and Drug Abuse Patient Records regulations: The Federal rules restrict any use of the information to criminally investigate or prosecute any alcohol or drug abuse patient.[facility] the event this information is protected by the Federal Confidentiality of Alcohol and Drug Abuse Patient Records regulations: The Federal rules restrict any use of the information to criminally investigate or prosecute any alcohol or drug abuse patient.[facility] the event this information is protected by the Federal Confidentiality of Alcohol and Drug Abuse Patient Records regulations: The Federal rules restrict any use of the information to criminally investigate or prosecute any alcohol or drug abuse patient.[facility] the event this information is protected by the Federal Confidentiality of Alcohol and Drug Abuse Patient Records regulations: The Federal rules restrict any use of the information to criminally investigate or prosecute any alcohol or drug abuse patient.[facility] the event this information is protected by the Federal Confidentiality of Alcohol and Drug Abuse Patient Records regulations: The Federal rules restrict any use of the information to criminally investigate or prosecute any alcohol or drug abuse patient.[facility] the event this information is protected by the Federal Confidentiality of Alcohol and Drug Abuse Patient Records regulations: The Federal rules restrict any use of the information to criminally investigate or prosecute any alcohol or drug abuse patient.[facility] the event this information is protected by the Federal Confidentiality of Alcohol and Drug Abuse Patient Records regulations: The Federal rules restrict any use of the information to criminally investigate or prosecute any alcohol or drug abuse patient.[facility] the event this information is protected by the Federal Confidentiality of Alcohol and Drug Abuse Patient Records regulations: The Federal rules restrict any use of the information to criminally investigate or prosecute any alcohol or drug abuse patient.[facility] the event this information is protected by the Federal Confidentiality of Alcohol and Drug Abuse Patient Records regulations: The Federal rules restrict any use of the information to criminally investigate or prosecute any alcohol or drug abuse patient.[facility] the event this information is protected by the Federal Confidentiality of Alcohol and Drug Abuse Patient Records regulations: The Federal rules restrict any use of the information to criminally investigate or prosecute any alcohol or drug abuse patient.[facility] the event this information is protected by the Federal Confidentiality of Alcohol and Drug Abuse Patient Records regulations: The Federal rules restrict any use of the information to criminally investigate or prosecute any alcohol or drug abuse patient.[facility] the event this information is protected by the Federal Confidentiality of Alcohol and Drug Abuse Patient Records regulations: The Federal rules restrict any use of the information to criminally investigate or prosecute any alcohol or drug abuse patient.[facility] the event this information is protected by the Federal Confidentiality of Alcohol and Drug Abuse Patient Records regulations: The Federal rules restrict any use of the information to criminally investigate or prosecute any alcohol or drug abuse patient.[facility] the event this information is protected by the Federal Confidentiality of Alcohol and Drug Abuse Patient Records regulations: The Federal rules restrict any use of the information to criminally investigate or prosecute any alcohol or drug abuse patient.[facility] the event this information is protected by the Federal Confidentiality of Alcohol and Drug Abuse Patient Records regulations: The Federal rules restrict any use of the information to criminally investigate or prosecute any alcohol or drug abuse patient.[facility] the event this information is protected by the Federal Confidentiality of Alcohol and Drug Abuse Patient Records regulations: The Federal rules restrict any use of the information to criminally investigate or prosecute any alcohol or drug abuse patient.[facility] the event this information is protected by the Federal Confidentiality of Alcohol and Drug Abuse Patient Records regulations: The Federal rules restrict any use of the information to criminally investigate or prosecute any alcohol or drug abuse patient.[facility] the event this information is protected by the Federal Confidentiality of Alcohol and Drug Abuse Patient Records regulations: The Federal rules restrict any use of the information to criminally investigate or prosecute any alcohol or drug abuse patient.[facility] the event this information is protected by the Federal Confidentiality of Alcohol and Drug Abuse Patient Records regulations: The Federal rules restrict any use of the information to criminally investigate or prosecute any alcohol or drug abuse patient.[facility] the event this information is protected by the Federal Confidentiality of Alcohol and Drug Abuse Patient Records regulations: The Federal rules restrict any use of the information to criminally investigate or prosecute any alcohol or drug abuse patient.[facility] the event this information is protected by the Federal Confidentiality of Alcohol and Drug Abuse Patient Records regulations: The Federal rules restrict any use of the information to criminally investigate or prosecute any alcohol or drug abuse patient.[facility] the event this information is protected by the Federal Confidentiality of Alcohol and Drug Abuse Patient Records regulations: The Federal rules restrict any use of the information to criminally investigate or prosecute any alcohol or drug abuse patient.[facility] the event this information is protected by the Federal Confidentiality of Alcohol and Drug Abuse Patient Records regulations: The Federal rules restrict any use of the information to criminally investigate or prosecute any alcohol or drug abuse patient.[facility] the event this information is protected by the Federal Confidentiality of Alcohol and Drug Abuse Patient Records regulations: The Federal rules restrict any use of the information to criminally investigate or prosecute any alcohol or drug abuse patient.[facility] HospitalIn the event this information is protected by the Federal Confidentiality of Alcohol and Drug Abuse Patient Records regulations: The Federal rules restrict any use of the information to criminally investigate or prosecute any alcohol or drug abuse patient.[facility] HospitalIn the event this information is protected by the Federal Confidentiality of Alcohol and Drug Abuse Patient Records regulations: The Federal rules restrict any use of the information to criminally investigate or prosecute any alcohol or drug abuse patient.[facility] HospitalIn the event this information is protected by the Federal Confidentiality of Alcohol and Drug Abuse Patient Records regulations: The Federal rules restrict any use of the information to criminally investigate or prosecute any alcohol or drug abuse patient.[facility] HospitalIn the event this information is protected by the Federal Confidentiality of Alcohol and Drug Abuse Patient Records regulations: The Federal rules restrict any use of the information to criminally investigate or prosecute any alcohol or drug abuse patient.[facility] HospitalIn the event this information is protected by the Federal Confidentiality of Alcohol and Drug Abuse Patient Records regulations: The Federal rules restrict any use of the information to criminally investigate or prosecute any alcohol or drug abuse patient.[facility] HospitalIn the event this information is protected by the Federal Confidentiality of Alcohol and Drug Abuse Patient Records regulations: The Federal rules restrict any use of the information to criminally investigate or prosecute any alcohol or drug abuse patient.[facility] HospitalIn the event this information is protected by the Federal Confidentiality of Alcohol and Drug Abuse Patient Records regulations: The Federal rules restrict any use of the information to criminally investigate or prosecute any alcohol or drug abuse patient.[facility] HospitalIn the event this information is protected by the Federal Confidentiality of Alcohol and Drug Abuse Patient Records regulations: The Federal rules restrict any use of the information to criminally investigate or prosecute any alcohol or drug abuse patient.[facility] HospitalIn the event this information is protected by the Federal Confidentiality of Alcohol and Drug Abuse Patient Records regulations: The Federal rules restrict any use of the information to criminally investigate or prosecute any alcohol or drug abuse patient.[facility] HospitalIn the event this information is protected by the Federal Confidentiality of Alcohol and Drug Abuse Patient Records regulations: The Federal rules restrict any use of the information to criminally investigate or prosecute any alcohol or drug abuse patient.[facility] HospitalIn the event this information is protected by the Federal Confidentiality of Alcohol and Drug Abuse Patient Records regulations: The Federal rules restrict any use of the information to criminally investigate or prosecute any alcohol or drug abuse patient.[facility] HospitalIn the event this information is protected by the Federal Confidentiality of Alcohol and Drug Abuse Patient Records regulations: The Federal rules restrict any use of the information to criminally investigate or prosecute any alcohol or drug abuse patient.[facility] HospitalIn the event this information is protected by the Federal Confidentiality of Alcohol and Drug Abuse Patient Records regulations: The Federal rules restrict any use of the information to criminally investigate or prosecute any alcohol or drug abuse patient.[facility] HospitalIn the event this information is protected by the Federal Confidentiality of Alcohol and Drug Abuse Patient Records regulations: The Federal rules restrict any use of the information to criminally investigate or prosecute any alcohol or drug abuse patient.[facility] HospitalIn the event this information is protected by the Federal Confidentiality of Alcohol and Drug Abuse Patient Records regulations: The Federal rules restrict any use of the information to criminally investigate or prosecute any alcohol or drug abuse patient.[facility] HospitalIn the event this information is protected by the Federal Confidentiality of Alcohol and Drug Abuse Patient Records regulations: The Federal rules restrict any use of the information to criminally investigate or prosecute any alcohol or drug abuse patient.[facility] HospitalIn the event this information is protected by the Federal Confidentiality of Alcohol and Drug Abuse Patient Records regulations: The Federal rules restrict any use of the information to criminally investigate or prosecute any alcohol or drug abuse patient.[facility] HospitalIn the event this information is protected by the Federal Confidentiality of Alcohol and Drug Abuse Patient Records regulations: The Federal rules restrict any use of the information to criminally investigate or prosecute any alcohol or drug abuse patient.[facility] HospitalIn the event this information is protected by the Federal Confidentiality of Alcohol and Drug Abuse Patient Records regulations: The Federal rules restrict any use of the information to criminally investigate or prosecute any alcohol or drug abuse patient.[facility] HospitalIn the event this information is protected by the Federal Confidentiality of Alcohol and Drug Abuse Patient Records regulations: The Federal rules restrict any use of the information to criminally investigate or prosecute any alcohol or drug abuse patient.[facility] HospitalIn the event this information is protected by the Federal Confidentiality of Alcohol and Drug Abuse Patient Records regulations: The Federal rules restrict any use of the information to criminally investigate or prosecute any alcohol or drug abuse patient.[facility] HospitalIn the event this information is protected by the Federal Confidentiality of Alcohol and Drug Abuse Patient Records regulations: The Federal rules restrict any use of the information to criminally investigate or prosecute any alcohol or drug abuse patient.[facility] HospitalIn the event this information is protected by the Federal Confidentiality of Alcohol and Drug Abuse Patient Records regulations: The Federal rules restrict any use of the information to criminally investigate or prosecute any alcohol or drug abuse patient.[facility] HospitalIn the event this information is protected by the Federal Confidentiality of Alcohol and Drug Abuse Patient Records regulations: The Federal rules restrict any use of the information to criminally investigate or prosecute any alcohol or drug abuse patient.[facility] HospitalIn the event this information is protected by the Federal Confidentiality of Alcohol and Drug Abuse Patient Records regulations: The Federal rules restrict any use of the information to criminally investigate or prosecute any alcohol or drug abuse patient.[facility] HospitalIn the event this information is protected by the Federal Confidentiality of Alcohol and Drug Abuse Patient Records regulations: The Federal rules restrict any use of the information to criminally investigate or prosecute any alcohol or drug abuse patient.[facility] HospitalIn the event this information is protected by the Federal Confidentiality of Alcohol and Drug Abuse Patient Records regulations: The Federal rules restrict any use of the information to criminally investigate or prosecute any alcohol or drug abuse patient.[facility] HospitalIn the event this information is protected by the Federal Confidentiality of Alcohol and Drug Abuse Patient Records regulations: The Federal rules restrict any use of the information to criminally investigate or prosecute any alcohol or drug abuse patient.[facility] HospitalIn the event this information is protected by the Federal Confidentiality of Alcohol and Drug Abuse Patient Records regulations: The Federal rules restrict any use of the information to criminally investigate or prosecute any alcohol or drug abuse patient.[facility] HospitalIn the event this information is protected by the Federal Confidentiality of Alcohol and Drug Abuse Patient Records regulations: The Federal rules restrict any use of the information to criminally investigate or prosecute any alcohol or drug abuse patient.[facility] HospitalIn the event this information is protected by the Federal Confidentiality of Alcohol and Drug Abuse Patient Records regulations: The Federal rules restrict any use of the information to criminally investigate or prosecute any alcohol or drug abuse patient.[facility] HospitalIn the event this information is protected by the Federal Confidentiality of Alcohol and Drug Abuse Patient Records regulations: The Federal rules restrict any use of the information to criminally investigate or prosecute any alcohol or drug abuse patient.[facility] HospitalIn the event this information is protected by the Federal Confidentiality of Alcohol and Drug Abuse Patient Records regulations: The Federal rules restrict any use of the information to criminally investigate or prosecute any alcohol or drug abuse patient.[facility] HospitalIn the event this information is protected by the Federal Confidentiality of Alcohol and Drug Abuse Patient Records regulations: The Federal rules restrict any use of the information to criminally investigate or prosecute any alcohol or drug abuse patient.[facility] HospitalIn the event this information is protected by the Federal Confidentiality of Alcohol and Drug Abuse Patient Records regulations: The Federal rules restrict any use of the information to criminally investigate or prosecute any alcohol or drug abuse patient.[facility] HospitalIn the event this information is protected by the Federal Confidentiality of Alcohol and Drug Abuse Patient Records regulations: The Federal rules restrict any use of the information to criminally investigate or prosecute any alcohol or drug abuse patient.[facility] HospitalIn the event this information is protected by the Federal Confidentiality of Alcohol and Drug Abuse Patient Records regulations: The Federal rules restrict any use of the information to criminally investigate or prosecute any alcohol or drug abuse patient.[facility] HospitalIn the event this information is protected by the Federal Confidentiality of Alcohol and Drug Abuse Patient Records regulations: The Federal rules restrict any use of the information to criminally investigate or prosecute any alcohol or drug abuse patient.[facility] HospitalIn the event this information is protected by the Federal Confidentiality of Alcohol and Drug Abuse Patient Records regulations: The Federal rules restrict any use of the information to criminally investigate or prosecute any alcohol or drug abuse patient.[facility] HospitalIn the event this information is protected by the Federal Confidentiality of Alcohol and Drug Abuse Patient Records regulations: The Federal rules restrict any use of the information to criminally investigate or prosecute any alcohol or drug abuse patient.[facility] HospitalIn the event this information is protected by the Federal Confidentiality of Alcohol and Drug Abuse Patient Records regulations: The Federal rules restrict any use of the information to criminally investigate or prosecute any alcohol or drug abuse patient.[facility] HospitalIn the event this information is protected by the Federal Confidentiality of Alcohol and Drug Abuse Patient Records regulations: The Federal rules restrict any use of the information to criminally investigate or prosecute any alcohol or drug abuse patient.[facility] HospitalIn the event this information is protected by the Federal Confidentiality of Alcohol and Drug Abuse Patient Records regulations: The Federal rules restrict any use of the information to criminally investigate or prosecute any alcohol or drug abuse patient.[facility] HospitalIn the event this information is protected by the Federal Confidentiality of Alcohol and Drug Abuse Patient Records regulations: The Federal rules restrict any use of the information to criminally investigate or prosecute any alcohol or drug abuse patient.[facility] HospitalIn the event this information is protected by the Federal Confidentiality of Alcohol and Drug Abuse Patient Records regulations: The Federal rules restrict any use of the information to criminally investigate or prosecute any alcohol or drug abuse patient.[facility] HospitalIn the event this information is protected by the Federal Confidentiality of Alcohol and Drug Abuse Patient Records regulations: The Federal rules restrict any use of the information to criminally investigate or prosecute any alcohol or drug abuse patient.[facility] HospitalIn the event this information is protected by the Federal Confidentiality of Alcohol and Drug Abuse Patient Records regulations: The Federal rules restrict any use of the information to criminally investigate or prosecute any alcohol or drug abuse patient.[facility] HospitalIn the event this information is protected by the Federal Confidentiality of Alcohol and Drug Abuse Patient Records regulations: The Federal rules restrict any use of the information to criminally investigate or prosecute any alcohol or drug abuse patient.[facility] HospitalIn the event this information is protected by the Federal Confidentiality of Alcohol and Drug Abuse Patient Records regulations: The Federal rules restrict any use of the information to criminally investigate or prosecute any alcohol or drug abuse patient.[facility] HospitalIn the event this information is protected by the Federal Confidentiality of Alcohol and Drug Abuse Patient Records regulations: The Federal rules restrict any use of the information to criminally investigate or prosecute any alcohol or drug abuse patient.[facility] HospitalIn the event this information is protected by the Federal Confidentiality of Alcohol and Drug Abuse Patient Records regulations: The Federal rules restrict any use of the information to criminally investigate or prosecute any alcohol or drug abuse patient.[facility] HospitalIn the event this information is protected by the Federal Confidentiality of Alcohol and Drug Abuse Patient Records regulations: The Federal rules restrict any use of the information to criminally investigate or prosecute any alcohol or drug abuse patient.[facility] HospitalIn the event this information is protected by the Federal Confidentiality of Alcohol and Drug Abuse Patient Records regulations: The Federal rules restrict any use of the information to criminally investigate or prosecute any alcohol or drug abuse patient.[facility] HospitalIn the event this information is protected by the Federal Confidentiality of Alcohol and Drug Abuse Patient Records regulations: The Federal rules restrict any use of the information to criminally investigate or prosecute any alcohol or drug abuse patient.[facility] HospitalIn the event this information is protected by the Federal Confidentiality of Alcohol and Drug Abuse Patient Records regulations: The Federal rules restrict any use of the information to criminally investigate or prosecute any alcohol or drug abuse patient.[facility] HospitalIn the event this information is protected by the Federal Confidentiality of Alcohol and Drug Abuse Patient Records regulations: The Federal rules restrict any use of the information to criminally investigate or prosecute any alcohol or drug abuse patient.[facility] HospitalIn the event this information is protected by the Federal Confidentiality of Alcohol and Drug Abuse Patient Records regulations: The Federal rules restrict any use of the information to criminally investigate or prosecute any alcohol or drug abuse patient.[facility] HospitalIn the event this information is protected by the Federal Confidentiality of Alcohol and Drug Abuse Patient Records regulations: The Federal rules restrict any use of the information to criminally investigate or prosecute any alcohol or drug abuse patient.[facility] HospitalIn the event this information is protected by the Federal Confidentiality of Alcohol and Drug Abuse Patient Records regulations: The Federal rules restrict any use of the information to criminally investigate or prosecute any alcohol or drug abuse patient.[facility] HospitalIn the event this information is protected by the Federal Confidentiality of Alcohol and Drug Abuse Patient Records regulations: The Federal rules restrict any use of the information to criminally investigate or prosecute any alcohol or drug abuse patient.[facility] HospitalIn the event this information is protected by the Federal Confidentiality of Alcohol and Drug Abuse Patient Records regulations: The Federal rules restrict any use of the information to criminally investigate or prosecute any alcohol or drug abuse patient.[facility] HospitalIn the event this information is protected by the Federal Confidentiality of Alcohol and Drug Abuse Patient Records regulations: The Federal rules restrict any use of the information to criminally investigate or prosecute any alcohol or drug abuse patient.[facility] HospitalIn the event this information is protected by the Federal Confidentiality of Alcohol and Drug Abuse Patient Records regulations: The Federal rules restrict any use of the information to criminally investigate or prosecute any alcohol or drug abuse patient.[facility] HospitalIn the event this information is protected by the Federal Confidentiality of Alcohol and Drug Abuse Patient Records regulations: The Federal rules restrict any use of the information to criminally investigate or prosecute any alcohol or drug abuse patient.[facility] HospitalIn the event this information is protected by the Federal Confidentiality of Alcohol and Drug Abuse Patient Records regulations: The Federal rules restrict any use of the information to criminally investigate or prosecute any alcohol or drug abuse patient.[facility]In the event this information is protected by the Federal Confidentiality of Alcohol and Drug Abuse Patient Records regulations: The Federal rules restrict any use of the information to criminally investigate or prosecute any alcohol or drug abuse patient.[facility] HospitalIn the event this information is protected by the Federal Confidentiality of Alcohol and Drug Abuse Patient Records regulations: The Federal rules restrict any use of the information to criminally investigate or prosecute any alcohol or drug abuse patient.[facility] HospitalIn the event this information is protected by the Federal Confidentiality of Alcohol and Drug Abuse Patient Records regulations: The Federal rules restrict any use of the information to criminally investigate or prosecute any alcohol or drug abuse patient.[facility] HospitalIn the event this information is protected by the Federal Confidentiality of Alcohol and Drug Abuse Patient Records regulations: The Federal rules restrict any use of the information to criminally investigate or prosecute any alcohol or drug abuse patient.[facility] HospitalIn the event this information is protected by the Federal Confidentiality of Alcohol and Drug Abuse Patient Records regulations: The Federal rules restrict any use of the information to criminally investigate or prosecute any alcohol or drug abuse patient.[facility]In the event this information is protected by the Federal Confidentiality of Alcohol and Drug Abuse Patient Records regulations: The Federal rules restrict any use of the information to criminally investigate or prosecute any alcohol or drug abuse patient.[facility] HospitalIn the event this information is protected by the Federal Confidentiality of Alcohol and Drug Abuse Patient Records regulations: The Federal rules restrict any use of the information to criminally investigate or prosecute any alcohol or drug abuse patient.[facility] HospitalIn the event this information is protected by the Federal Confidentiality of Alcohol and Drug Abuse Patient Records regulations: The Federal rules restrict any use of the information to criminally investigate or prosecute any alcohol or drug abuse patient.[facility] HospitalIn the event this information is protected by the Federal Confidentiality of Alcohol and Drug Abuse Patient Records regulations: The Federal rules restrict any use of the information to criminally investigate or prosecute any alcohol or drug abuse patient.[facility] HospitalIn the event this information is protected by the Federal Confidentiality of Alcohol and Drug Abuse Patient Records regulations: The Federal rules restrict any use of the information to criminally investigate or prosecute any alcohol or drug abuse patient.[facility] HospitalIn the event this information is protected by the Federal Confidentiality of Alcohol and Drug Abuse Patient Records regulations: The Federal rules restrict any use of the information to criminally investigate or prosecute any alcohol or drug abuse patient.[facility] Reason for Visit (unrecogniz ed section and content) Reason Comments Follow Up Specialty Diagnoses / Procedures Referred By Contac t Referred To Contact Family Practice / FAMILY MEDICINE Diagnoses Follow up/not seen since 02/2020 Procedures 4C EST Self Corrina Lennon, [employer].COURT ORDERLY [address] [place] [address] Referral ID Status Reason Start Date Expiration Date V isits Requested Visits Authorized [id number] Closed Patient Cleared - INN Insurance Found [...] Date Comments Population Health Navigation Outreach 06/14/2022 [facility] care gaps Reason Onset Date Comments Anticoagulation 06/06/2022 Home INR Reason Onset Date Comments Anticoagulation 2022 INR result Reason Onset Date Comments Refill Request 07/22/2022 Reason Onset Date Comments Anticoagulation Telephone Fu 08/01/2022 Gabrielle e INR Result Reason Comments Consult Specialty Diagnoses / Procedures Referred By Anival aden Referred To Contact Cardiology / CARD ADMIN [facility] Diagnoses Paroxysmal atrial fibrillation (HCC) Nonrheumatic aortic valve stenosis Procedures CONSULT TO CARDIOLOGY OFFICE/OUTPATIENT [facility] 60-74 MINUTES Corrina Lennon, [employer].COURT ORDERLY [address] [place] [address] Card Admin [facility] [address] [place] [address] Referral ID Status Reason Start Date Expiration Date V isits Requested Visits Authorized [id number] Closed PCP Requested Referral 02/28/2022 10/15/2022 1 [...] Telephone Fu 03/07/2024 Reason Onset Date Comments [facility] RN 03/08/2024 Medication ad herence and [...] REAL TIME W/IMAGE COMPLETE Guanakito Reno MD [address] [place] [address] [place] [address] Referral ID Status Reason Start Date Expiration Date V isits Requested Visits Authorized [id number] Closed Auto-Generate d Referral 03/26/2024 04/25/2025 1 1 Reason Comments Follow Up htn- ultrasound on k idneys and labs, family worried about falls 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 Reason Comments Edema Bilateral leg [...] 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 [facility] [address] [place] [address] Referral ID Status Reason Start Date Expiration Date Visits Re quested Visits Authorized [id number] 1 Reason Onset Date Comments Anticoagulation [...] e INR Result Reason Comments Faxed to [facility] Reason Onset Date Comments Refill Request 04/08/2025 Reason Comments Patient Question Care Teams (unrecognized sec tion and content) Supervisor [employer] Relationship Specialty Start Date End Date Guanakito Reno MD [address] [place], [place] [id number] PCP - [facility] 05/24/18 13, Pharmacist [id number] [place], [place] [id number] Pharmacist Pharmacy 05/31/21 Supervisor Metal Placing Relationship Specialty Start Date End Date Guanakito Reno MD [address] [place], [place] [id number] PCP - General Family Practice 05/24/18 13, Pharmacist [phone] [place] [address] Pharmacist Pharmacy 05/31/21 Supervisor Metal Placing Relationship Specialty Start Date End Date Guanakito Reno MD [address] [place] [address] PCP - General Family Practice 05/24/18 13, Pharmacist [address] [place] [address] Pharmacist Pharmacy 05/31/21 Supervisor Metal Placing Relationship Specialty Start Date End Date Guanakito Reno MD [address] [place] [address] PCP - General Family Practice 05/24/18 13, Pharmacist [phone] [place] [address] Pharmacist Pharmacy 05/31/21 Supervisor Metal Placing Relationship Specialty Start Date End Date Guanakito Reno MD [address] [place] [address] PCP - General Family Practice 05/24/18 13, Pharmacist 66863 [facility] [address] Pharmacist Pharmacy 05/31/21 Supervisor Metal Placing Relationship Specialty Start Date End Date Guanakito Reno MD [address] [place] [address] PCP - General Family Practice 05/24/18 13, Pharmacist [phone] [place] [address], [place] [address] Pharmacist Pharmacy 05/31/21 Supervisor Metal Placing Relationship Specialty Start Date End Date Guanakito Reno MD [address] [facility] [place] [address] PCP - General Family Practice 05/24/18 13, Pharmacist [phone] [facility] [place] [address] Pharmacist Pharmacy 05/31/21 Supervisor Metal Placing Relationship Specialty Start Date End Date Guanakito Reno MD [address] [place] [address] PCP - General Family Practice 05/24/18 13, Pharmacist [phone] [facility] [address] Pharmacist Pharmacy 05/31/21 Supervisor Metal Placing Relationship Specialty Start Date End Date Guanakito Reno MD [address] [place] [address] PCP - General Family Practice 05/24/18 13, Pharmacist [phone] [place] [address] Pharmacist Pharmacy 05/31/21 Supervisor Metal Placing Relationship Specialty Start Date End Date Guanakito Reno MD [address] [place] [address] PCP - General Family Medicine 05/24/18 13, Pharmacist [phone] [place] [address] Pharmacist Pharmacy 05/31/21 Supervisor Metal Placing Relationship Specialty Start Date End Date Guanakito Reno MD [facility] [place] [address] PCP - General Family Medicine 05/24/18 13, Pharmacist [phone] [facility] [place] [address] Pharmacist Pharmacy 05/31/21 Supervisor Metal Placing Relationship Specialty Start Date End Date Guanakito Reno MD [address] [place] [address] PCP - General Family Medicine 05/24/18 13, Pharmacist [phone] [facility] [place] [address] Pharmacist Pharmacy 05/31/21 Supervisor Metal Placing Relationship Specialty Start Date End Date Guanakito Reno MD [facility] [place] [address] PCP - General Family Medicine 05/24/18 13, Pharmacist [phone] [place] [address] Pharmacist Pharmacy 05/31/21 Supervisor Metal Placing Relationship Specialty Start Date End Date Guanakito Reno MD [address] [place] [address] PCP - General Family Medicine 05/24/18, Pharmacist [phone] [place] [address] Pharmacist Pharmacy 05/31/21 Supervisor Metal Placing Relationship Specialty Start Date End Date Guanakito Reno MD [address] [place] [address] PCP - General Family Medicine 05/24/18, Pharmacist [phone] [place] [address] Pharmacist Pharmacy 05/31/21 Supervisor Metal Placing Relationship Specialty Start Date End Date Guanakito Reno MD [address] [place] [address] PCP - General Family Medicine 05/24/18, Pharmacist [phone] [place] [address] Pharmacist Pharmacy 05/31/21 Supervisor Metal Placing Relationship Specialty Start Date End Date Guanakito Reno MD [address] [place] [address] PCP - General Family Medicine 05/24/18, Pharmacist [phone] [place] [address] Pharmacist Pharmacy 05/31/21 Supervisor Metal Placing Relationship Specialty Start Date End Date Guanakito Reno MD [address] [place] [address] PCP - General Family Medicine 05/24/18 13, Pharmacist [address] [place] [address] Pharmacist Pharmacy 05/31/21 Supervisor Metal Placing Relationship Specialty Start Date End Date Guanakito Reno MD [address] [place] [address] PCP - General Family Medicine 05/24/18 13, Pharmacist [phone] [place] [address] Pharmacist Pharmacy 05/31/21 Supervisor Metal Placing Relationship Specialty Start Date End Date Guanakito Reno MD [address] [place] [address] PCP - General Family Medicine 05/24/18 13, Pharmacist [phone] [facility] [address] Pharmacist Pharmacy 05/31/21 Supervisor Metal Placing Relationship Specialty Start Date End Date Guanakito Reno MD [address] [place] [address] PCP - General Family Medicine 05/24/18 13, Pharmacist 29749 [facility] [address] Pharmacist Pharmacy 05/31/21 Supervisor Metal Placing Relationship Specialty Start Date End Date Guanakito Reno MD [address] [place] [address] PCP - General Family Medicine 05/24/18 13, Pharmacist 23735 [facility] [address] Pharmacist Pharmacy 05/31/21 Supervisor Metal Placing Relationship Specialty Start Date End Date Guanakito Reno MD [address] [place] [address] PCP - General Family Medicine 05/24/18 13, Pharmacist 66744 [facility] [address] Pharmacist Pharmacy 05/31/21 Supervisor Metal Placing Relationship Specialty Start Date End Date Guanakito Reno MD [address] [place] [address] PCP - General Family Medicine 05/24/18 13, Pharmacist [phone] [facility] [address] Pharmacist Pharmacy 05/31/21 Supervisor Metal Placing Relationship Specialty Start Date End Date Guanakito Reno MD [address] [place] [address] PCP - General Family Medicine 05/24/18 13, Pharmacist [phone] [place] [address] Pharmacist Pharmacy 05/31/21 Supervisor Metal Placing Relationship Specialty Start Date End Date Guanakito Reno MD [address] [place] [address] PCP - General Family Medicine 05/24/18 13, Pharmacist [phone] [place] [address] Pharmacist Pharmacy 05/31/21 Supervisor Metal Placing Relationship Specialty Start Date End Date Guanakito Reno MD [address] [place] [address] PCP - General Family Medicine 05/24/18, Pharmacist [address] [place] [address] Pharmacist Pharmacy 05/31/21 Supervisor Metal Placing Relationship Specialty Start Date End Date Guanakito Reno MD [address] [place] [address] PCP - General Family Medicine 05/24/18, Pharmacist [address] [place] [address] Pharmacist Pharmacy 05/31/21 Supervisor Metal Placing Relationship Specialty Start Date End Date Guanakito Reno MD [address] [place] [address] PCP - General Family Medicine 05/24/18 13, Pharmacist [address] [place] [address] Pharmacist Pharmacy 05/31/21 Supervisor Metal Placing Relationship Specialty Start Date End Date Guanakito Reno MD [address] [place] [address] PCP - General Family Medicine 05/24/18 13, Pharmacist [address] [place] [address] Pharmacist Pharmacy 05/31/21 Supervisor Metal Placing Relationship Specialty Start Date End Date Guanakito Reno MD [address] [place] [address] PCP - General Family Medicine 05/24/18 13, Pharmacist [address] [place] [address] Pharmacist Pharmacy 05/31/21 Supervisor Metal Placing Relationship Specialty Start Date End Date Guanakito Reno MD [address] [place] [address] PCP - General Family Medicine 05/24/18, Pharmacist [address] [place] [address] Pharmacist Pharmacy 05/31/21 Supervisor Metal Placing Relationship Specialty Start Date End Date Guanakito Reno MD [address] [place] [address] PCP - General Family Medicine 05/24/18, Pharmacist [phone] [place] [address] Pharmacist Pharmacy 05/31/21 Supervisor Metal Placing Relationship Specialty Start Date End Date Guanakito Reno MD [address] [place] [address] PCP - General Family Medicine 05/24/18 13, Pharmacist [address] [place] [address] Pharmacist Pharmacy 05/31/21 Supervisor Metal Placing Relationship Specialty Start Date End Date Guanakito Reno MD [address] [place] [address] PCP - General Family Medicine 05/24/18 13, Pharmacist [address] [place] [address] Pharmacist Pharmacy 05/31/21 Supervisor Metal Placing Relationship Specialty Start Date End Date Guanakito Reno MD [address] [place] [address] PCP - General Family Medicine 05/24/18 13, Pharmacist [address] [place] [address] Pharmacist Pharmacy 05/31/21 Supervisor Metal Placing Relationship Specialty Start Date End Date Guanakito Reno MD [address] [place] [address] PCP - General Family Medicine 05/24/18 13, Pharmacist [address] [place] [address] Pharmacist Pharmacy 05/31/21 Supervisor Metal Placing Relationship Specialty Start Date End Date Guanakito Reno MD [address] [place] [address] PCP - General Family Medicine 05/24/18 13, Pharmacist [address] [place] [address] Pharmacist Pharmacy 05/31/21 Supervisor Metal Placing Relationship Specialty Start Date End Date Guanakito Reno MD [address] [place] [address] PCP - General Family Medicine 05/24/18 13, Pharmacist [address] [place] [address] Pharmacist Pharmacy 05/31/21 Supervisor Metal Placing Relationship Specialty Start Date End Date Guanakito Reno MD [address] [place] [address] PCP - General Family Medicine 05/24/18 13, Pharmacist [address] [place] [address] Pharmacist Pharmacy 05/31/21 Supervisor Metal Placing Relationship Specialty Start Date End Date Guanakito Reno MD [address] [place] [address] PCP - General Family Medicine 05/24/18 13, Pharmacist [phone] [place] [address] Pharmacist Pharmacy 05/31/21 Supervisor Metal Placing Relationship Specialty Start Date End Date Guanakito Reno MD [address] [place] [address] PCP - General Family Medicine 05/24/18 13, Pharmacist [address] [place] [address] Pharmacist Pharmacy 05/31/21 Supervisor Metal Placing Relationship Specialty Start Date End Date Guanakito Reno MD [address] [place] [address] PCP - General Family Medicine 05/24/18 13, Pharmacist [address] [place] [address] Pharmacist Pharmacy 05/31/21 Supervisor Metal Placing Relationship Specialty Start Date End Date Guanakito Reno MD [address] [place] [address] PCP - General Family Medicine 05/24/18 13, Pharmacist [address] [place] [address] Pharmacist Pharmacy 05/31/21 Supervisor Metal Placing Relationship Specialty Start Date End Date Guanakito eRno MD [address] [place] [address] PCP - General Family Medicine 05/24/18 13, Pharmacist [address] [place] [address] Pharmacist Pharmacy 05/31/21 Supervisor Metal Placing Relationship Specialty Start Date End Date Guanakito Reno MD [address] [place] [address] PCP - General Family Medicine 05/24/18 13, Pharmacist [address] [place] [address] Pharmacist Pharmacy 05/31/21 Supervisor Metal Placing Relationship Specialty Start Date End Date Guanakito Reno MD [address] [place] [address] PCP - General Family Medicine 05/24/18 13, Pharmacist [address] [place] [address] Pharmacist Pharmacy 05/31/21 Supervisor Metal Placing Relationship Specialty Start Date End Date Guanakito Reno MD [address] [place] [address] PCP - General Family Medicine 05/24/18, Pharmacist [address] [place] [address] Pharmacist Pharmacy 05/31/21 Supervisor Metal Placing Relationship Specialty Start Date End Date Guanakito Reno MD [address] [place] [address] PCP - General Family Medicine 05/24/18, Pharmacist [address] [place] [address] Pharmacist Pharmacy 05/31/21 Supervisor Metal Placing Relationship Specialty Start Date End Date Guanakito Reno MD [address] [place] [address] PCP - General Family Medicine 05/24/18 13, Pharmacist [address] [place] [address] Pharmacist Pharmacy 05/31/21 Supervisor Metal Placing Relationship Specialty Start Date End Date Guanakito Reno MD [address] [place] [address] PCP - General Family Medicine 05/24/18 13, Pharmacist 07807 [facility] [address] Pharmacist Pharmacy 05/31/21 Supervisor Metal Placing Relationship Specialty Start Date End Date Guanakito Reno MD [address] [place] [address] PCP - General Family Medicine 05/24/18 13, Pharmacist [address] [place] [address] Pharmacist Pharmacy 05/31/21 Corrina Lennon APRN.COURT ORDERLY [address] [place] [address] [facility] 09/23/24 Carolina Landeros APRN.COURT ORDERLY [address] [place] [address] [facility] 09/23/24 Supervisor Metal Placing Relationship Specialty Start Date End Date Guanakito Reno MD [address] [place] [address] PCP - General Family Medicine 05/24/18 13, Pharmacist [address] [place] [address] Pharmacist Pharmacy 05/31/21 Corrina Lennon APRN.COURT ORDERLY [address] [place] [address] [facility] 09/23/24 Carolina Landeros APRN.COURT ORDERLY [address] [place] [address] [facility] 09/23/24 Supervisor Metal Placing Relationship Specialty Start Date End Date Guanakito Reno MD [address] [place] [address] PCP - General Family Medicine 05/24/18 13, Pharmacist [address] [place] [address] Pharmacist Pharmacy 05/31/21 Corrina Lennon APRN.COURT ORDERLY [address] [place] [address] [facility] 09/23/24 Carolina Landeros [employer].COURT ORDERLY [address] [place] [address] [facility] 09/23/24 Supervisor Metal Placing Relationship Specialty Start Date End Date Guanakito Reno MD [address] [place] [address] PCP - General Family Medicine 05/24/18 13, Pharmacist [address] [place] [address] Pharmacist Pharmacy 05/31/21 Corrina Lennon [employer] OFFICIAL.COURT ORDERLY [address] [place] [address] [facility] 09/23/24 Carolina Landeros [employer] OFFICIAL.COURT ORDERLY [address] [place] [address] [facility] 09/23/24 Supervisor Metal Placing Relationship Specialty Start Date End Date Guanakito Reno MD [address] [place] [address] PCP - General Family Medicine 05/24/18 13, Pharmacist [phone] [place] [address] Pharmacist Pharmacy 05/31/21 Corrina Lennon APRN.COURT ORDERLY [address] [facility] [place] [address] [facility] 09/23/24 Carolina Landeros APRN.COURT ORDERLY [address] [place] [address] [facility] 09/23/24 Supervisor Metal Placing Relationship Specialty Start Date End Date Guanakito Reno MD [address] [place] [address] PCP - General Family Medicine 05/24/18 13, Pharmacist [address] [place] [address] Pharmacist Pharmacy 05/31/21 Corrina Lennon APRN.COURT ORDERLY [address] [facility] [place] [address] [employer] 09/23/24 Carolina Landeros APRN.COURT ORDERLY [address] [place] [address] [facility] 09/[facility] Supervisor Metal Placing Relationship Specialty Start Date End Date Guanakito Reno MD [address] [place] [address] PCP - General Family Medicine 05/24/18 13, Pharmacist [address] [place] [address] Pharmacist Pharmacy 05/31/21 Corrina Lennon APRN.COURT ORDERLY [address] [facility] [place] [address] [facility] 09/23/24 Carolina Landeros APRN.COURT ORDERLY [address] [place] [address] [facility] 09/23/24 Supervisor Metal Placing Relationship Specialty Start Date End Date Guanakito Reno MD [address] [place] [address] PCP - General Family Medicine 05/24/18 13, Pharmacist [address] [place] [address] Pharmacist Pharmacy 05/31/21 Corrina Lennon APRN.COURT ORDERLY [address] [place] [address] [employer] [facility] 09/23/24 Carolina Landeros APRN.COURT ORDERLY [address] [place] [address] [facility] 09/23/24 Supervisor Metal Placing Relationship Specialty Start Date End Date Guanakito Reno MD [address] [place] [address] PCP - General Family Medicine 05/24/18 13, Pharmacist 63314 [facility] [address] Pharmacist Pharmacy 05/31/21 Corrina Lennon [employer]IAL.COURT ORDERLY [address] [place] [address] [facility] 09/23/24 Carolina Landeros APRN.COURT ORDERLY [address] [place] [address] [facility] 09/23/24 Supervisor Metal Placing Relationship Specialty Start Date End Date Guanakito Reno MD [address] [place] [address] PCP - General Family Medicine 05/24/18 13, Pharmacist [address] [place] [address] Pharmacist Pharmacy 05/31/21 Corrina Lennon APRN.COURT ORDERLY [address] [place] [address] [facility] 09/23/24 Carolina Landeros APRN.COURT ORDERLY [address] [place] [address] [facility] 09/23/24 Supervisor Metal Placing Relationship Specialty Start Date End Date Guanakito Reno MD [address] [place] [address] PCP - General Family Medicine 05/24/18 13, Pharmacist [address] [place] [address] Pharmacist Pharmacy 05/31/21 Corrina Lennon APRN.COURT ORDERLY [address] [place] [address] [facility] 09/23/24 Carolina Landeros APRN.COURT ORDERLY [address] [place] [address] [facility] 09/23/24 Supervisor Metal Placing Relationship Specialty Start Date End Date Guanakito Reno MD [address] [place] [address] PCP - General Family Medicine 05/24/18 13, Pharmacist [address] [place] [address] Pharmacist Pharmacy 05/31/21 Corrina Lennon APRN.COURT ORDERLY [address] [facility] [place] [address] [facility] 09/23/24 Carolina Landeros [employer].COURT ORDERLY [address] [facility] [address] [facility] 09/23/24 Team Status: Active Member Role/Relationship Status [...] 2025 End: May 02, 2025 Team Status: Active Member Role/Relationship Status Dates Dr. Guanakito Ren[place] MD Primary Care Provider Active Start: May 06, 2025 Dr. Josafat ORTEZ MD Attending Provider Active Start: May 06, 2025 Dr. Josafat ORTEZ MD Referring Provider Active Start: May 06, 2025 Team Status: Active Member Role/Relationship Status Dates Dr. Guanakito Reno MD Primary Care Provider Active Start: May 08, 2025 Dr. Josafat ORTEZ MD Attending Provider Active Start: May 08, 2025 Team Status: Active Member Role/Relationship Status Dates Dr. Guanakito Reno MD Primary Care Provider Active Start: May 13, 2025 Dr. Josafat ORTEZ MD Attending Provider Active Start: May 13, 2025 Team Status: Active Member Role/Relationship Status Dates Dr. Guanakito eRno MD Primary Care Provider Active Start: May 15, 2025 Dr. Josafat ORTEZ MD Attending Provider Active Start: May 15, 2025 Team Status: Inactive Member Role/Relationship Status Dates Dr. Guanakito Reno MD Primary Care Provider Active Start: May 20, 2025 End: May 20, 2025 Dr. Josafat ORTEZ MD Attending Provider Active Start: May 20, 2025 End: May 20, 2025 Dr. Josafat ORTEZ MD Referring Provider Active Start: May 20, 2025 End: May 20, 2025 Team Status: Active Member Role/Relationship Status Dates Dr. Guanakito Reno MD Primary Care Provider Active Start: May 27, 2025 Dr. Josafat ORTEZ MD Attending Provider Active Start: May 27, 2025 Team Status: Active Member Role/Relationship Status Dates Dr. Guanakito Reno MD Primary Care Provider Active Start: June 03, 2025 Dr. Josafat ORTEZ MD Attending Provider Active Start: June 03, 2025 Goals (unrecognized section and content) Goals may be documented in a n alternate sectionGoals may be documented in an alternate sectionGoals may be documented in an [...] BE BASED ON THE PRIMARY CLINICAL RECORDS. [employer] provides no warranty or guarantee of the accuracy or completeness of information in this document.
--- OUTSIDE RECORDS SUMMARY | 2025-07-08 04:02 | XMS RPT_ITS | CCD ---
Author Organization [facility] Care Team Providers Care Senior Systems Architect Name Role Phone VIPIN CARDONA Unavailable Unavailable [...] Guanakito Reno MD Primary Care Provider Haagen BULK PLANT SUPERVISOR.Corrina OCONNELL Unavailable [phone] Suppan BULK PLANT SUPERVISOR.KOURTNEY, Carolina A Unavailable Suppan BULK PLANT SUPERVISOR.KOURTNEY, [place] A Unavailable JOSSELYN MAYER Referring Unavailable [...] Shadia JAMES, Dr. Calabrese Primary Care Provider [phone] Shadia JAMES, Dr. Calabrese Referring Provider [phone] Josafat García MD Attending Provider Josafat García [...] García Attending Unavailable Shadia, Guanakito Referring Unavailable Alorton, Guanakito Primary Care Unavailable Josafat García Referring Unavailable Josafat García Attending Unavailable Shadia, Guanakito Primary Care Unavailable Josafat Oliva Attending Unavailable Alorton, Guanakito Primary Care Unavailable Gudla Bianka ORTEZ Attending Unavailable Alorton, Guanakito Primary Care Unavailable Josafat Oliva Attending Unavailable Shadia, Guanakito Primary Care Unavailable Gudla Bianka ORTEZ Attending Unavailable Alorton, Guanakito Primary Care Unavailable Josafat Oliva Attending Unavailable Alorton, Guanakito Primary Care Unavailable Josafat Oliva Attending Unavailable Shadia, Guanakito Primary Care Unavailable Josafat Oliva Attending Unavailable Shadia, Guanakito Primary Care Unavailable Josafat Oliva Attending Unavailable Shadia, Guanakito Primary Care Unavailable Josafat Oliva Attending Unavailable Josafat Oliva Referring Unavailable Alorton, Guanakito Primary Care Unavailable Josafat Oliva Attending Unavailable Josafat Oliva Referring Unavailable Shadia, Guanakito Primary Care Unavailable Josafat Oliva Attending Unavailable [facility] Primary Care Unavailable Ariana Khan Referring Unavailable Ariana Khan Attending Unavailable [facility] Primary Care Unavailable Josafat Oliva Attending Unavailable [facility] Primary Care Unavailable Josafat Oliva Attending Unavailable [facility] Primary Care Unavailable Josafat Oliva Attending Unavailable Josafat Oliva Referring Unavailable [facility] Primary Care Unavailable Josafat Oliva Attending Unavailable [facility] Primary Care Unavailable David Navarrete Attending Unavailable [facility] Primary Care Unavailable [facility] Referring Unavailable Allergies Allergy Classification Reported Allergen(s) Allergy Type Date of Onset Reaction(s) Facility (4 sources) Environmental Allergies: Uncoded; Translations: [Environmental Allergies: Uncoded] Allergy to substance 5 [facility] Medications Current Medications Medication Drug [...] hydrochloride 10 mg oral tablet (20 sources) J-jhsfky-U-aspart ate Receptor Antagonist Start: 08-21-2019 End: 01-21-2025 [...] 4 11-11-2016 Chronic Other aftercare (3 sources) 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; Translations: [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] Onset: 0 Episodic Other aftercare (2 sources) Other terminal operator (current) drug therapy; Translations: [Other longterm (current) drug therapy] Onset: 5 Episodic Other [...] sources) Long-term current use of anticoagulant; Translations: [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] Onset: 02-04-2020 02-04-2020 [...] Coag (PPP) [Relative time] 2.1 {INR} Normal [facility] Comment on above: Performed By: #### L 300.3900 #### [facility] [address] [place], [address] PT Coag (PPP) [Time] 24.2 s High 11.7-14.9 [facility] Comment on above: Performed By: #### L 300.3900 #### [facility] [address] [place], [address] Protime w/INR Fingerstickon 06-17-2025 INR Coag (PPP) [Relative time] 2.1 {INR} Normal [facility] Comment on above: Result Comment: Crit ical Value > 4.0 Performed By: #### L 300.3900 #### [facility] [address] [place], [address] Protime Coagsen 22.8 SEC High 11.7-14.9 [facility] Comment on above: Performed By: #### L 300.3900 #### [facility] [address] [place], [address] Prothrombin Time w/INRon INR Coag (PPP) [Relative time] 1.9 {INR} Normal [facility] Comment on above: Order Comment: 317.1 Performed By: #### L 300.3900 #### [facility] [address] [place], [address] PT Coag (PPP) [Time] 22.4 s High 11.7-14.9 [facility] Comment on above: Order Comment: 317.1 Performed By: #### L 300.3900 #### [facility] [address] [place], [address] Prothrombin Time w/INRon INR Normal [facility] Comment on above: Result Comment: PLEAleisha JONES SEE 28:CG18 Performed By: #### L 300.3900 #### [facility] [address] [place], [address] PROTIME Normal 11.7-14.9 [facility] Comment on above: Result Comment: PLEA SE SEE 28:CG18 Performed By: #### L 300.3900 #### [facility] [address] [place], [address] International normalized rat io (INR) calculationOrdered By: Josafat Simon on 06-03-2025 INR Coag (Bld) [Relative time] 3.0 {INR} [facility] Prothrombin Time w/INRon INR Coag (PPP) [Relative time] 3.0 {INR} Normal [facility] Comment on above: Order Comment: FINGE RSTICK CONFIRMATION Performed By: #### L 300.3900 #### [facility] [address] [place], [address] PT Coag (PPP) [Time] 31.4 s High 11.7-14.9 [facility] Comment on above: Order Comment: FINGE RSTICK CONFIRMATION Performed By: #### L 300.3900 #### [facility] [address] [place], [address] Prothrombin timeOrdered By: Josafat Smion on 06-03-2025 PT Coag (PPP) [Time] 31.4 s High 11.7-14.9 [facility] International normalized rat io (INR) measurement by fingerstickOrdered By: Josafat Simon on 05-27-2025 INR Coag (BldC) [Relative time] 2.3 [facility] Comment on above: Critical Value > 4.0 Protime w/INR Fingerstickon 05-27-2025 INR Coag (PPP) [Relative time] 2.3 {INR} Normal [facility] Comment on above: Result Comment: Crit ical Value > 4.0 Performed By: #### L 9200.0000 #### [facility] [address] [place], [address] Protime Coagsen 24.6 SEC High 11.7-14.9 [facility] Comment on above: Performed By: #### L 9200.0000 #### [facility] [address] [place], [address] Whole blood prothrombin time Ordered By: Josafat Simon on 05-27-2025 PT Coag (Bld) [Time] 24.6 s High 11.7-14.9 [facility] International normalized rat io (INR) measurement by fingerstickOrdered By: Josafat Simon on 05-20-2025 INR Coag (BldC) [Relative time] 2.7 [facility] Comment on above: Critical Value > 4.0 Protime w/INR Fingerstickon 05-20-2025 INR Coag (PPP) [Relative time] 2.7 {INR} Normal [facility] Comment on above: Result Comment: Crit ical Value > 4.0 Performed By: #### L 300.3900 #### [facility] [address] [place], [address] Protime Coagsen 28.2 SEC High 11.7-14.9 [facility] Comment on above: Performed By: #### L 300.3900 #### [facility] [address] [place], [address] Whole blood prothrombin time Ordered By: Josafat Simon on 05-20-2025 PT Coag (Bld) [Time] 28.2 s High 11.7-14.9 [facility] International normalized rat io (INR) calculationOrdered By: Josafat Simon on 05-15-2025 INR Coag (Bld) [Relative time] 2.3 {INR} [facility] Prothrombin Time w/INRon INR Coag (PPP) [Relative time] 2.3 {INR} Normal [facility] Comment on above: Order Comment: 317.1 Performed By: #### L 300.3900 #### [facility] [address] [place], [address] ([phone] Prothrombin timeOrdered By: Josafat Simon on 05-15-2025 PT Coag (PPP) [Time] 25.3 s High 11.7-14.9 [facility] Comment on above: Order Comment: 317.1 Performed By: #### L 300.3900 #### [facility] [address] [place], [address] (389) International normalized rat io (INR) calculationOrdered By: Josafat Simon on 05-13-2025 INR Coag (Bld) [Relative time] 1.7 {INR} [facility] Prothrombin Time w/INRon INR Coag (PPP) [Relative time] 1.7 {INR} Normal [facility] Comment on above: Order Comment: 317.1 Performed By: #### L 300.3900 #### [facility] [address] [place], [address] ([address] PT Coag (PPP) [Time] 20.6 s High 11.7-14.9 [facility] Comment on above: Order Comment: 317.1 Performed By: #### L 300.3900 #### [facility] [address] [facility] [place], [address] Prothrombin timeOrdered By: Josafat Simon on 05-13-2025 PT Coag (PPP) [Time] 20.6 s High 11.7-14.9 [facility] International normalized rat io (INR) calculationOrdered By: Josafat Simon on 05-08-2025 INR Coag (Bld) [Relative time] 3.2 {INR} [facility] Prothrombin Time w/INRon INR Coag (PPP) [Relative time] 3.2 {INR} Normal [facility] Comment on above: Order Comment: 317.1 Performed By: #### L 300.3900 #### [facility] [address] [place], [address] PT Coag (PPP) [Time] 33.1 s High 11.7-14.9 [facility] Comment on above: Order Comment: 317.1 Performed By: #### L 300.3900 #### [facility] [address] [place], [address] Prothrombin timeOrdered By: Josafat Simon on 05-08-2025 PT Coag (PPP) [Time] 33.1 s High 11.7-14.9 [facility] International normalized rat io (INR) calculationOrdered By: Josafat Simon on 05-06-2025 INR Coag (Bld) [Relative time] 4.1 {INR} High [facility] Comment on above: CRITICAL VALUE ZABALA D TO IRMA SOLOMON (OLS.)05/06/25 0801 Travis Yost.RESULTS READ BACK BY SAME. Prothrombin Time w/INRon INR Coag (PPP) [Relative time] 4.1 {INR} Invalid Interpretation Code [facility] Comment on above: Order Comment: FINGE RSTICK CONFIRMATION Result Comment: CRIT ICAL VALUE CALLED TO IRMA SOLOMON (OLS.SW) 05/06/25 0801 Travis Yost. RESULTS READ BACK BY SAME. Performed By: #### L 300.3900 #### [facility] [address] [place], [address] PT Coag (PPP) [Time] 40.8 s High 11.7-14.9 [facility] Comment on above: Order Comment: FINGE RSTICK CONFIRMATION Performed By: #### L 300.3900 #### [facility] [address] [place], [address] Prothrombin timeOrdered By: Josafat Simon on 05-06-2025 PT Coag (PPP) [Time] 40.8 s High 11.7-14.9 [facility] Protime w/INR Fingerstickon 05-06-2025 INR Coag (PPP) [Relative time] 4.3 {INR} Invalid Interpretation Code [facility] Comment on above: Result Comment: Crit ical Value > 4.0 Performed By: #### L 300.3900 #### [facility] [address] [place], [place], [address] Protime Coagsen 42.3 SEC High 11.7-14.9 [facility] Comment on above: Performed By: #### L 300.3900 #### [facility] [address] [place], [place], [address] Whole blood prothrombin time Ordered By: Josafat Simon on 05-06-2025 PT Coag (Bld) [Time] 42.3 s High 11.7-14.9 [facility] Orthopedic Visit Reporton Orthopedic Visit Report [facility] [address] [place] [address] [address] [place], [place] [address] OFFICE VISIT Date of Service: 05/02/25 MR#: [id number] Acct: [id number] Name: CAL MITCHELL Rep #: [id number] : 1945 Provider: Dr. David granados DO Age/Sex: 79/M Location: [facility] Status: Signed Intake Vital Signs 03/07/25 12:57 [...] History acetaminophen 650 mg rectal 650 mg DE Q4H PRN 05/02/25 5 History suppository aluminum-mag hydroxide-simethicone 30 ml PO Q4H PRN 05/02/25 History 200 mg-200 mg-20 mg/5 mL oral susp (Antacid) bisacodyl 10 mg rectal suppository 10 mg DE QDAY PRN 05/02/2505/02 History (Dulcolax (bisacodyl)) dextrose [...] hr sodium phosphates 19 gram-7 118 ml DE ONCE PRN 05/02/25 History gram/118 mL enema [...] is here today with his son and bvzwxghp-la-dsk. Usually ambulates with a walker or a cane. Had a fall. Was mainly complaining about pain to the upper extremity was seen in a peripheral hospital referred here given a sling they found approximately wrist fracture on the right side. The patient does not speak very much but he converses overall well he is xeaid-kmzz-cibuukzo fairly stoic. Plan:79-year-old man with a (more content not included)... Normal [facility] Shoulder min 2 Viewson 05-02 Shoulder min 2 Views [facility] [address] [place] [address] Shoulder min 2 Views MR#: [id number] Acct: [id number] Name: CAL MITCHELL Rep #: [id number] : 1945 M 79 From: Magdalena Lala PCP: Dr. Guanakito Reno MD Status: DEP AMB Study: Shoulder min 2 Views Date of Exam: 05/02/25 Exam# [id number] Ordering Dr: David Navarrete DO PROCEDURE: SHOULDER [...] changes involving the glenohumeral joint. Reading Location: [id number] CC: Dr. David Navarrete DO; Dr. Guanakito Reno MD Rail Grinder: Signed Normal [facility] International normalized rat io (INR) calculationOrdered By: Josafat Simon on 05-01-2025 INR Coag (Bld) [Relative time] 3.2 {INR} [facility] Prothrombin Time w/INRon INR Coag (PPP) [Relative time] 3.2 {INR} Normal [facility] Comment on above: Performed By: #### L 300.3900 #### [facility] [address] [place], [address] PT Coag (PPP) [Time] 33.6 s High 11.7-14.9 [facility] Comment on above: Performed By: #### L 300.3900 #### [facility] [address] [place], [address] Prothrombin timeOrdered By: Josafat Simon on 05-01-2025 PT Coag (PPP) [Time] 33.6 s High 11.7-14.9 [facility] International normalized rat io (INR) calculationOrdered By: Josafat Simon on 04-29-2025 INR Coag (Bld) [Relative time] 3.1 {INR} [facility] Prothrombin Time w/INRon INR Coag (PPP) [Relative time] 3.1 {INR} Normal [facility] Comment on above: Performed By: #### L 300.3900 #### [facility] [facility] [place], [address] Prothrombin timeOrdered By: Josafat Simon on 04-29-2025 PT Coag (PPP) [Time] 32.2 s High 11.7-14.9 [facility] Comment on above: Performed By: #### L 300.3900 #### [facility] [address] [place], [address] International normalized rat io (INR) measurement by fingerstickOrdered By: Josafat Simon on 04-24-2025 INR Coag (BldC) [Relative time] 3.5 [facility] Comment on above: Critical Value > 4.0 Protime w/INR Fingerstickon 04-24-2025 INR Coag (PPP) [Relative time] 3.5 {INR} Normal [facility] Comment on above: Result Comment: Crit ical Value > 4.0 Performed By: #### L 300.3900 #### [facility] [address] [place], [address] Protime Coagsen 35.4 SEC High 11.7-14.9 [facility] Comment on above: Performed By: #### L 300.3900 #### [facility] [address] [place], [address] Whole blood prothrombin time Ordered By: Josafat Simon on 04-24-2025 PT Coag (Bld) [Time] 35.4 s High 11.7-14.9 [facility] Anion gap in Serum or Plasma Ordered By: Bianka Gonzalez on 04-17-2025 Anion gap [Moles/Vol] 10 mmol/L 5-15 [facility] BUN/creatinine ratioOrdered By: Bianka Gonzalez on 04-17-2025 Urea nitrogen/Creatinine [Mass ratio] 21.1 mg/mg High 10-20 [facility] Basic Metabolic Profile (BMP )on 04-17-2025 BUN/CRE 21.1 RATIO High 10-20 [facility] Comment on above: Order Comment: 213 Performed By: #### L 300.3900, L100.0500, L500.2500 #### [facility] [address] [place], [address] Calcium [Mass/Vol] 8.2 mg/dL Normal 7.6-11.0 [facility] Comment on above: Order Comment: 213 Performed By: #### L 300.3900, L100.0500, L500.2500 #### [facility] [address] [place], [address] Chloride [Moles/Vol] 111 mmol/L High 98-108 [facility] Comment on above: Order Comment: 213 Performed By: #### L 300.3900, L100.0500, L500.2500 #### [facility] [address] [place], [address] CO2 [Moles/Vol] 17.2 mmol/L Low 21.0-32.0 [facility] Comment on above: Order Comment: 213 Performed By: #### L 300.3900, L100.0500, L500.2500 #### [facility] [address] [place], [address] Creatinine [Mass/Vol] 2.45 mg/dL High 0.70-1.20 [facility] Comment on above: Order Comment: 213 Performed By: #### L 300.3900, L100.0500, L500.2500 #### [facility] [address] [place], [address] GAP 10 Normal 5-15 [facility] Comment on above: Order Comment: 213 Performed By: #### L 300.3900, L100.0500, L500.2500 #### [facility] [address] [place], [address] GFR/1.73 sq M.predicted among non-blacks MDRD (S/P/Bld) [Vol rate/Area] 26 mL/min/{1.73_m2} Low >60 [facility] Comment on above: Order Comment: 213 Result Comment: mL/m in/1.73m2 CKD-EPI Creatinine Equation (2020) Performed By: #### L 300.3900, L100.0500, L500.2500 #### [facility] [address] [place], [address] Glucose [Mass/Vol] 137 mg/dL High 70-99 [facility] Comment on above: Order Comment: 213 Performed By: #### L 300.3900, L100.0500, L500.2500 #### [facility] [address] [place], [address] Potassium [Moles/Vol] 4.9 mmol/L Normal 3.3-5.1 [facility] Comment on above: Order Comment: 213 Performed By: #### L 300.3900, L100.0500, L500.2500 #### [facility] [address] [place], [address] Sodium [Moles/Vol] 139 mmol/L Normal 133-145 [facility] Comment on above: Order Comment: 213 Performed By: #### L 300.3900, L100.0500, L500.2500 #### [facility] [address] [place], [address] Urea nitrogen [Mass/Vol] 52 mg/dL High 4-19 [facility] Comment on above: Order Comment: 213 Performed By: #### L 300.3900, L100.0500, L500.2500 #### [facility] [address] [place], [address] CBC-Complete Blood Cnt No Di ffon 04-17-2025 Erythrocyte distribution width (RBC) [Ratio] 16.4 % High 11.6-14.6 [facility] Comment on above: Order Comment: 213 Performed By: #### L 300.3900, L100.0500, L500.2500 #### [facility] [address] [place], [address] Hematocrit (Bld) [Volume fraction] 35.2 % Low 40-54 [facility] Comment on above: Order Comment: 213 Performed By: #### L 300.3900, L100.0500, L500.2500 #### [facility] [address] [place], [address] Hemoglobin (Bld) [Mass/Vol] 10.6 g/dL Low 13.0-16.5 [facility] Comment on above: Order Comment: 213 Performed By: #### L 300.3900, L100.0500, L500.2500 #### [facility] [address] [place], [address] MCH (RBC) [Entitic mass] 29.2 pg Normal 27.0-32.0 [facility] Comment on above: Order Comment: 213 Performed By: #### L 300.3900, L100.0500, L500.2500 #### [facility] [address] [place], [address] MCHC (RBC) [Mass/Vol] 30.1 g/dL Low 32-36 [facility] Comment on above: Order Comment: 213 Performed By: #### L 300.3900, L100.0500, L500.2500 #### [facility] [address] [place], [address] MCV (RBC) [Entitic vol] 97.0 fL High 80-94 [facility] Comment on above: Order Comment: 213 Performed By: #### L 300.3900, L100.0500, L500.2500 #### [facility] [address] [place], [address] Platelet mean volume (Bld) [Entitic vol] 10.0 fL Normal 6.2-12.0 [facility] Comment on above: Order Comment: 213 Performed By: #### L 300.3900, L100.0500, L500.2500 #### [facility] [address] [place], [address] Platelets (Bld) [#/Vol] 161 10*3/uL Normal 150-450 [facility] Comment on above: Order Comment: 213 Performed By: #### L 300.3900, L100.0500, L500.2500 #### [facility] [address] [place], [address] RBC (Bld) [#/Vol] 3.63 10*6/uL Low 4.6-6.2 [facility] Comment on above: Order Comment: 213 Performed By: #### L 300.3900, L100.0500, L500.2500 #### [facility] [address] [place], [address] RDW SD 58.6 fl High 35.1-43.9 [facility] Comment on above: Order Comment: 213 Performed By: #### L 300.3900, L100.0500, L500.2500 #### [facility] [address] [place], [address] WBC (Bld) [#/Vol] 7.2 10*3/uL Normal 4.4-11.0 [facility] Comment on above: Order Comment: 213 Performed By: #### L 300.3900, L100.0500, L500.2500 #### [facility] [address] [place], [address] Carbon dioxide, total [Moles /volume] in Central venous bloodOrdered By: Bianka Gonzalez on 04-17-2025 CO2 [Moles/Vol] 17.2 mmol/L Low 21.0-32.0 [facility] Chloride assayOrdered By: Josr Gonzalez on 04-17-2025 Chloride [Moles/Vol] 111 mmol/L High 98-108 [facility] Erythrocyte distribution wid th ratioOrdered By: Bianka Gonzalez on 04-17-2025 Erythrocyte distribution width (RBC) [Ratio] 16.4 % High 11.6-14.6 [facility] Erythrocyte distribution wid th standard deviationOrdered By: Bianka Gonzalez on 04-17-2025 Erythrocyte distribution width (RBC) [Ratio] 58.6 fl High 35.1-43.9 [facility] Glomerular filtration rate ( GFR) estimation/1.73 sq m using serum, plasma, or whole bOrdered By: Bianka Gonzalez on 04-17-2025 GFR/1.73 sq M.predicted among non-blacks MDRD (S/P/Bld) [Vol rate/Area] 26 mL/min/{1.73_m2} Low >60 [facility] Comment on above: mL/min/1.73m2 CKD-EP I Creatinine Equation (2020) Hematocrit Auto (Bld) [Volum e fraction]Ordered By: Bianka Gonzalez on 04-17-2025 Hematocrit (Bld) [Volume fraction] 35.2 % Low 40-54 [facility] Hemoglobin measurementOrdere d By: Bianka Gonzalez on 04-17-2025 Hemoglobin (Bld) [Mass/Vol] 10.6 g/dL Low 13.0-16.5 [facility] International normalized rat io (INR) calculationOrdered By: Bianka Gonzalez on 04-17-2025 INR Coag (Bld) [Relative time] 2.7 {INR} [facility] MCV (mean corpuscular volume ) determinationOrdered By: Bianka Gonzalez on 04-17-2025 MCV (RBC) [Entitic vol] 97.0 fL High 80-94 [facility] Mean corpuscular hemoglobin (MCH) determinationOrdered By: Bianka Gonzalez on 04-17-2025 MCH (RBC) [Entitic mass] 29.2 pg 27.0-32.0 [facility] Mean corpuscular hemoglobin concentration (MCHC) determinationOrdered By: Bianka Gonzalez on 04-17-2025 MCHC (RBC) [Mass/Vol] 30.1 g/dL Low 32-36 [facility] Mean platelet volume determi nationOrdered By: Bianka Gonzalez on 04-17-2025 Platelet mean volume (Bld) [Entitic vol] 10.0 fL 6.2-12.0 [facility] Platelet countOrdered By: Josr Gonzalez on 04-17-2025 Platelets (Bld) [#/Vol] 161 10*3/uL 150-450 [facility] Potassium measurement (mass/ volume)Ordered By: Bianka Gonzalez on 04-17-2025 Potassium (Unsp spec) [Mass/Vol] 4.9 mmol/L 3.3-5.1 [facility] Prothrombin Time w/INRon INR Coag (PPP) [Relative time] 2.7 {INR} Normal [facility] Comment on above: Order Comment: 213 Performed By: #### L 300.3900, L100.0500, L500.2500 #### [facility] [address] [place], [address] PT Coag (PPP) [Time] 29.7 s High 11.7-14.9 [facility] Comment on above: Order Comment: 213 Performed By: #### L 300.3900, L100.0500, L500.2500 #### [facility] [address] [place], [address] Prothrombin timeOrdered By: Bianka Gonzalez on 04-17-2025 PT Coag (PPP) [Time] 29.7 s High 11.7-14.9 [facility] RBC Auto (Bld) [#/Vol]Ordere d By: Bianka Gonzalez on 04-17-2025 RBC (Bld) [#/Vol] 3.63 10*6/uL Low 4.6-6.2 [facility] Serum creatinine measurement (mass/volume)Ordered By: Bianka Gonzlaez on 04-17-2025 Creatinine [Mass/Vol] 2.45 mg/dL High 0.70-1.20 [facility] Serum glucose measurement (m ass/volume)Ordered By: Bianka Gonzalez on 04-17-2025 Glucose [Mass/Vol] 137 mg/dL High 70-99 [facility] Serum or plasma calcium cornelius urement (mass/volume)Ordered By: Bianka Gonzalez on 04-17-2025 Calcium [Mass/Vol] 8.2 mg/dL 7.6-11.0 [facility] Serum or plasma urea nitroge n measurement (mass/volume)Ordered By: Bianka Gonzalez on 04-17-2025 Urea nitrogen [Mass/Vol] 52 mg/dL High 4-19 [facility] Sodium levelOrdered By: Nestor Gonzalez on 04-17-2025 Sodium [Moles/Vol] 139 mmol/L 133-145 [facility] White blood cell (WBC) count Ordered By: Bianka Gonzalez on 04-17-2025 WBC (Bld) [#/Vol] 7.2 10*3/uL 4.4-11.0 [facility] CNPNon 04-15-2025 [facility] Telephone (PHAMTE) -------- PAULACAL CRAIG ([id number]) 1945 M Date Time Provider Department 04/15/25 [place] PHAMTE During your visit today, we recorded the following information about you: Twin Cole [facility] 04/15/2025 9:[address] [facility] Ambulatory Pharmacy Anticoagulation Clinic Anticoagulation Episode Summary Anticoagulation Care Providers Provider Role Specialty Phone number Guanakito Reno MD [facility] [phone] Cal Mitchell is a 79 year old [...] Pharmacy Anticoagulation Clinic Pharmacy Anticoagulation Clinic Pager: [phone]. Twin Cole RPh 04/29/2025 8:54 AM Signed [...] to patient's daughter. Patient has moved to [facility]. His INRs are monitored there. Will discharge patient from [facility] Daniel (DiBcomAshley Granados 05/06/2025 2:31 PM Signed Pharmacy Anticoagulation Clinic Discharge completed at this time. Patient may be re-referred, if deemed appropriate. Ashley Hameed procurement professional (DiBcom) Pharmacy Anticoagulation Clinic Allergies As of Date: [...] guidelines link (more content not included)... Normal [facility] Molly [facility]14[facility]2025 [facility]ENEIDA[facility] -------- CAL MITCHELL ([id number]) 1945 M Date Time Provider Department 04/14/25 [facility]UANAKITO R[facility] During your visit today, we recorded [...] Fully Assessed Reason for Visit: Patient Question [4027] Prescriptions as of 04/14/2025 - warfarin (COUMADIN) [...] stenosis of unspecified carotid a*10/25/2013 03/26/2024 Frequency [NRM8361] 02/11/2016 03/26/2024 BPH (benign prostatic hypertrophy) with [...] Hypertensive kidney disease with stage 3 chroni*01/29/2020 senior care (current) use of anticoagulants [Z79.*02/04/2020 Dementia, vascular, [...] 05/03/2024 Bilateral (more content not included)... [facility] (FAMWS[facility] -------- CAL MITCHELL ([id number]) 1945 M Date Time Provider Department 03/28/25 [facility]O [facility] During your visit today, we recorded the following information about you: Niels Rodriges RN 03/28/2025 1:06 PM Signed Faxed recent ov notes to [facility] per daughter, January request. . January reports she talked to [facility] about patient going to live there and [facility] instructed her to have pcp office send an H AND P to them for review. 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 Anticoagulation Clinic Anticoagulation Episode Summary Anticoagulation Care Providers Provider Role Specialty Phone number Guanakito Reno MD [facility] Medicine [phone] Cal Mitchell is a 79 year old [...] instructed to call Pharm[facility] at [phone] with any questions or concerns. Alejandro Molina [facility] Clinical Pharmacist, Pharmacy Anticoagulation Clinic Pharmacy Anticoagulation Clinic Pager: [phone] Alejandro Molina RP 04/07/2025 3:31 PM Signed [...] Insulin: No - Lancets (ONE TOUCH DELICA) [facility] lancets Test blood sugar(s) one [...] diabetes mellitu (more content not included)... Normal [facility] Inital Evaluation (1) - PTon 03-24-2025 Inital Evaluation (1) - PT [facility] [address] [place] [address] / REHABILITATION SERVICES INITIAL EVALUATION MR#: [id number] Acct: [id number] Name: CAL MITCHELL Rep #: [id number] : 1945 79 From: Rosa MCGRAWT Referring Dr.: Dr. Josafat García MD Status: R [facility] Insurance: [facility] [address] SELF PAY INSURANCE Patient's Visit Information Visit [...] PROM due to guarding. Strength: Scap: poor, patient safety sitter: fair, no other motions tested due to [...] to be FAXED BACK to us at [phone] for Medicare purposes. For Medicare only, by signing this I certify the plan of care. Please let me know if there are questions or concerns regarding this plan of care. Physician Signature: Date: ____ 03/24/25 1256 CC: Dr. Josafat García MD; Dr. Guanakito Reno MD E (more content not included)... Normal [facility] Orthopedic Visit Reporton Orthopedic Visit Report [facility] [address] [place] [address] OFFICE VISIT Date of Service: 03/07/25 MR#: [id number] Acct: [id number] Name: CAL MITCHELL Rep #: [id number] : 1945 Provider: Dr. Josafat murcia MD Age/Sex: 79/M [facility] Status: Signed Intake Vital Signs 03/06/25 16:19 [...] is here today with his son and awnbldjx-ni-oln. Usually ambulates with a walker or a cane. Had a fall. Was mainly complaining about pain to the upper extremity was seen in a peripheral hospital referred here given a sling they found approximately wrist fracture on the right side. The patient does not speak very much but he converses overall well he is matsh-jpsr-mqbzdcqc fairly stoic. Supplemental Info Proximal humerus fracture [...] a r (more content not included)... 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 - Currently taking [place] for pain management. - Denies pain elsewhere [...] 250.00. Insulin: No Lancets [facility]ONE TOUCH DELICA) [facility] Test blood sugar(s) one time [...] SYSTEMS Mu (more content not included)... Normal [facility] ED NOTEon 03-06-2025 ED NOTE HNO ID: [id number] Author: JACK HOLCOMB RN Service: ? Author Type: Registered Nurse Type: ED Notes Filed: 03/06/2025 00:19 Note Text: Provided meds. Placed in sling. Assisted to bathroom and back Normal [facility] ED PROV NOTEon 03-06-2025 ED PROV NOTE HNO ID: [id number] Author: KEDAR HERNANDEZ MD Service: Emergency Medicine [...] to p (more content not included)... Normal [facility] CT BRAIN WO IVCONon 03-05-20 CT BRAIN WO IVCON * * *Final Report* * * DATE OF EXAM: Mar 05 2025 11:55PM [facility] 0504 - CT BRAIN WO [...] wall calcifications, including in the left-sided carotid. Escort Patients (topogram) images: Known (in correlation to earlier [...] vertebrae with counting from the craniocervical junction. Rail Grinder: PSCAmirah Transcribe Date/Time: Mar 06 2025 12:48A Dictated by : CAMELIA GROVES MD This examination was interpreted and the report reviewed and electronically signed by: CAMELIA GROVES MD on Mar 06 2025 1:08AM EST [id number] Normal [facility] CT CERVICAL SPINE WO IVCONon 03-05-2025 CT CERVICAL SPINE WO IVCON * * *Final Report* * * DATE OF EXAM: Mar 05 2025 11:55PM [facility] 0505 - CT CERVICAL SPINE [...] wall calcifications, including in the left-sided carotid. Escort Patients (topogram) images: Known (in correlation to earlier [...] vertebrae with counting from the craniocervical junction. Rail Grinder: MAC Transcribe Date/Time: Mar 06 2025 12:48A Dictated by : CAMELIA GROVES MD This examination was interpreted and the report reviewed and electronically signed by: CAMELIA GROVES MD on Mar 06 2025 1:08AM EST [id number] Normal [facility] ED NOTEon 03-05-2025 ED NOTE HNO ID: [id number] Author: JACK HOLCOMB RN Service: ? Author Type: Registered Nurse Type: ED Notes Filed: 03/05/2025 23:05 Note Text: Assisted to bathroom and back Normal [facility] ED NOTE HNO ID: [id number] Author: JACK HOLCOMB RN Service: ? Author Type: Registered Nurse Type: ED Notes Filed: 03/05/2025 22:10 Note Text: Pt c/o fall with right shoulder injury when wheel chair turned over. Denies neck and head injury. [place], warm, dry. No apparent distress. Alert and oriented. Normal [facility] XR HUMERUS 2V AP/LAT RTon XR HUMERUS [...] separation. No dislocation of the glenohumeral joint. Rail Grinder: MAC Transcribe Date/Time: Mar 06 2025 12:37A Dictated by : LINNEA DIAS MD This examination was interpreted and the report reviewed and electronically signed by: LINNEA DIAS MD on Mar 06 2025 12:40AM EST [id number] Normal [facility] XR SHLDR >/=3V AP/JR AP/OTH R RTon [...] separation. No dislocation of the glenohumeral joint. Rail Grinder: MAC Transcribe Date/Time: Mar 06 2025 12:37A Dictated by : LINNEA DIAS MD This examination was interpreted and the report reviewed and electronically signed by: LINNEA DIAS MD on Mar 06 2025 12:40AM EST [id number] Normal [facility] CNPNon 02-20-2025 CNPN Telephone (PHAMTE) -------- CAL MITCHELL ([id number]) 1945 M Date Time Provider Department 02/20/25 JIMMY CARRIZALES PHAMTE During your visit today, we recorded the following information about you: Jimmy Carrizales, [facility] 02/20/2025 9:[address] 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 Jimmy Carrizales [facility] Clinical Pharmacist, Pharmacy Anticoagulation Clinic Pharmacy Anticoagulation Clinic Pager: [phone]. Twin Cole bobbi 03/06/2025 12:38 PM Signed [...] an injectable anticoagulant - No Twin Cole [facility] Jimmy Carrizales [facility] 03/13/2025 7:40 AM Signed Cal Mitchell was sent [employer] message and reminded to test INR today or as soon as possible. Jimmy Carrizales RPh Sina MolinaoryStuart 03/20/2025 3:45 PM Signed No INR has been received or is in process at this time, will add to discharge list and start the discharge process at this time. Stuart Costa (Assistant Community Manager)Ashley 03/24/2025 10:52 AM Signed No return call from patient. Letter sent. FINAL ATTEMPT letter sent at this time. If no response from patient within 3 weeks of letter being sent, patient will be discharged from PAC at that time. Will also route to referring MD as FYI and to see if office can assist in reaching patient. Ashley Sanchez CPhT (Manager Transfusion) Pharmacy Anticoagulation Clinic Guanakito Reno MD 03/24/2025 [...] Fu [148] Cmt: Home INR Primary Visit Diagnosis:senior care (current) use of anticoagulants [Z79.01] Other Visit [...] mg table (more content not included)... Normal [facility] Molly 01-31-2025 LUCIO Telephone ([facility]) -------- PAULA,CAL L ([id number]) 1945 M Date Time Provider Department 01/31/25 KAMRAN AYON During your visit today, we recorded the following information about you: Kamran Ayon [facility] 01/31/2025 12:[address] 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 Normal [facility] CBC W Auto Differential pane l (Bld)on 01-21-2025 Basophils (Bld) [#/Vol] 0.07 10*3/uL Normal <0.11 [facility] Comment on above: Order Comment: Speci men Type: BLOOD SPECIMENOrdering Facility: [facility] Address: [address] [place] [address] Performed By: #### 5 7021-8 ####[facility] [id number] [place] [address] [place] Basophils/100 WBC (Bld) 0.9 % Normal C [facility] Comment on above: Order Comment: Speci men Type: BLOOD SPECIMENOrdering Facility: [facility] Address: [address] [place] [address] Performed By: #### 5 7021-8 ####[facility] [id number] [address], [place] [address] [place] Differential cell count method Nom (Bld) Auto Normal [facility] Comment on above: Order Comment: Speci men Type: BLOOD SPECIMENOrdering Facility: [facility] Address: [address] [place] [address] Performed By: #### 5 7021-8 ####[facility] [id number] [address], [place] [address] [place] Eosinophils (Bld) [#/Vol] 0.25 10*3/uL Normal <0.46 [facility] Comment on above: Order Comment: Speci men Type: BLOOD SPECIMENOrdering Facility: [facility] Address: [address] [place] [address] Performed By: #### 5 7021-8 ####[facility] [id number] [place] [address] [place] Eosinophils/100 WBC (Bld) 3.3 % Normal [facility] Comment on above: Order Comment: Speci men Type: BLOOD SPECIMENOrdering Facility: [facility] Address: [address] [place] [address] Performed By: #### 5 7021-8 ####[facility] [id number] [place] [address] [place] Erythrocyte distribution width (RBC) [Ratio] 14.8 % Normal 11.5-15.0 [facility] Comment on above: Order Comment: Speci men Type: BLOOD SPECIMENOrdering Facility: [facility] Address: [address] [place] [address] Performed By: #### 5 7021-8 ####[facility] [id number] [place] [address] [place] Hematocrit (Bld) [Volume fraction] 41.2 % Normal 39.0-51.0 [facility] Comment on above: Order Comment: Speci men Type: BLOOD SPECIMENOrdering Facility: [facility] Address: [address] [place] [address] Performed By: #### 5 7021-8 ####[facility] [id number] [place] [address] [place] Hemoglobin (Bld) [Mass/Vol] 12.5 g/dL Low 13.0-17.0 [facility] Comment on above: Order Comment: Speci men Type: BLOOD SPECIMENOrdering Facility: [facility] Address: [address] [place] [address] Performed By: #### 5 7021-8 ####[facility] [id number] [place] [address] [place] Immature granulocytes (Bld) [#/Vol] 10*3/uL Normal <0.10 [facility] Comment on above: Order Comment: Speci men Type: BLOOD SPECIMENOrdering Facility: [facility] Address: [address] [place] [address] Performed By: #### 5 7021-8 ####[facility] [id number] [place] [address] [place] Immature granulocytes/100 WBC (Bld) 0.3 % Normal [facility] Comment on above: Order Comment: Speci men Type: BLOOD SPECIMENOrdering Facility: [facility] Address: [address] [place] [address] Performed By: #### 5 7021-8 ####[facility] [id number] [place] [id number] [place] Lymphocytes (Bld) [#/Vol] 1.28 10*3/uL Normal 1.00-4.00 [facility] Comment on above: Order Comment: Speci men Type: BLOOD SPECIMENOrdering Facility: [facility] Address: [address] [place] [address] Performed By: #### 5 7021-8 ####[facility] [id number] [place] [address] [place] Lymphocytes/100 WBC (Bld) 17.1 % Normal [facility] Comment on above: Order Comment: Speci men Type: BLOOD SPECIMENOrdering Facility: [facility] Address: [address] [place] [address] Performed By: #### 5 7021-8 ####[facility] [id number] [place] [address] [place] MCH (RBC) [Entitic mass] 29.3 pg Normal 26.0-34.0 [facility] Comment on above: Order Comment: Speci men Type: BLOOD SPECIMENOrdering Facility: [facility] Address: [address] [place] [address] Performed By: #### 5 7021-8 ####[facility] [id number] [place] [address] [place] MCHC (RBC) [Mass/Vol] 30.3 g/dL Low 30.5-36.0 [facility] Comment on above: Order Comment: Speci men Type: BLOOD SPECIMENOrdering Facility: [facility] Address: [address] [place] [address] Performed By: #### 5 7021-8 ####[facility] [id number] [place] [address] [place] MCV (RBC) [Entitic vol] 96.7 fL Normal 80.0-100.0 C [facility] Comment on above: Order Comment: Speci men Type: BLOOD SPECIMENOrdering Facility: [facility] Address: [address] [place] [address] Performed By: #### 5 7021-8 ####[facility] [id number] [place] [address] [place] Monocytes (Bld) [#/Vol] 0.61 10*3/uL Normal <0.87 [facility] Comment on above: Order Comment: Speci men Type: BLOOD SPECIMENOrdering Facility: [facility] Address: [address] [place] [address] Performed By: #### 5 7021-8 ####[facility] [id number] [address] [address] [place] Monocytes/100 WBC (Bld) 8.2 % Normal [facility] Comment on above: Order Comment: Speci men Type: BLOOD SPECIMENOrdering Facility: [facility] Address: [address] [place] [address] Performed By: #### 5 7021-8 ####[facility] [id number] [place] [address] [place] Neutrophils (Bld) [#/Vol] 5.25 10*3/uL Normal 1.45-7.50 [facility] Comment on above: Order Comment: Speci men Type: BLOOD SPECIMENOrdering Facility: [facility] Address: [address] [place] [address] Performed By: #### 5 7021-8 ####[facility] [id number] [place] [address] [place] Neutrophils/100 WBC (Bld) 70.2 % Normal [facility] Comment on above: Order Comment: Speci men Type: BLOOD SPECIMENOrdering Facility: [facility] Address: [address] [place] [address] Performed By: #### 5 7021-8 ####[facility] [id number] [place] [address] [place] Nucleated RBC (Bld) [#/Vol] 10*3/uL Normal <0.01 [facility] Comment on above: Order Comment: Speci men Type: BLOOD SPECIMENOrdering Facility: [facility] Address: [address] [place] [address] Performed By: #### 5 7021-8 ####[facility] [id number] [address] [place] [address] [place] Nucleated RBC/100 WBC (Bld) [Ratio] 0.0 /100 WBC Normal [facility] Comment on above: Order Comment: Speci men Type: BLOOD SPECIMENOrdering Facility: [facility] Address: [address] [place] [address] Performed By: #### 5 7021-8 ####[facility] [id number] [address], [place] [address] [place] Platelet mean volume (Bld) [Entitic vol] 10.3 fL Normal 9.0-12.7 [facility] Comment on above: Order Comment: Speci men Type: BLOOD SPECIMENOrdering Facility: [facility] Address: [address] [place] [address] Performed By: #### 5 7021-8 ####[facility] [id number] [place] [address] [place] Platelets (Bld) [#/Vol] 198 10*3/uL Normal 150-400 [facility] Comment on above: Order Comment: Speci men Type: BLOOD SPECIMENOrdering Facility: [facility] Address: [address] [place] [address] Performed By: #### 5 7021-8 ####[facility] [id number] [address], [place] [address] [place] RBC (Bld) [#/Vol] 4.26 10*6/uL Normal 4.20-6.00 [facility] Comment on above: Order Comment: Speci men Type: BLOOD SPECIMENOrdering Facility: [facility] Address: [address] [place] [address] Performed By: #### 5 7021-8 ####[facility] [id number] [address], [facility] [place] WBC (Bld) [#/Vol] 7.48 10*3/uL Normal 3.70-11.00 [facility] Comment on above: Order Comment: Speci men Type: BLOOD SPECIMENOrdering Facility: [facility] Address: [address] [place] [address] Performed By: #### 5 7021-8 ####[facility] [id number] JESICA MARSHALL [id number] [place] [address] [place] CNOVon 01-21-2025 CNOV Office Visit (FAMPWS ) -------- CAL MITCHELL ([id number]) 1945 M Date Time Provider Department 01/21/25 3:40 PM [facility] During your visit today, we recorded the following information about you: Temperature Pulse Blood pressure Weight 97.6 degrees 59/minute 122/60 117 kg Carolina Landeros APRN.AIR [employer]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 Patient [...] taking lisinopril Monitors bp at home: Yes. [place] checks it, ok there Denies side effects: [...] pain,every 5 min x3 blood sugar diagnostic ([facility] ULTRA TEST) test strip Test blood sugar(s) one times daily. Dx: 250.00. Insulin: No Lancets (ONE TOUCH DELICA) [facility] lancets Test blood sugar(s) one [...] (20.0 ttl (more content not included)... Normal [facility] Comprehensive metabolic 2000 panelon 01-21-2025 Albumin [Mass/Vol] 4.1 g/dL Normal 3.9-4.9 [facility] Comment on above: Order Comment: Marcelle shultz Type: BLOOD SPECIMENOrdering Facility: [facility] Address: [address] [place] [address] Performed By: #### [place], [address]-8, 5822-9, 15167-7 ####[facility] LABCL[facility] [id number] [place] [address] [place] ALP [Catalytic activity/Vol] 153 U/L High 38-113 [facility] Comment on above: Order Comment: Speci men Type: BLOOD SPECIMENOrdering Facility: [facility] Address: [address] [place], [place] [address] Performed By: #### L IPNF, , 2132-06, ####[facility] [id number] [address] [address] [place] ALT [Catalytic activity/Vol] 19 U/L Normal 10-54 [facility] Comment on above: Order Comment: Speci men Type: BLOOD SPECIMENOrdering Facility: [facility] Address: [address] [place], [place] [address] Performed By: #### L IPNF, , 2132-06, ####[facility] [id number] [place] [address] [place] Anion gap [Moles/Vol] 15 mmol/L Normal 8-15 [facility] Comment on above: Order Comment: Speci men Type: BLOOD SPECIMENOrdering Facility: [facility] Address: [address] [place] [address] Performed By: #### L IPNF, , 2132-06, ####[facility] [id number] [place] [address] [place] AST [Catalytic activity/Vol] 23 U/L Normal 14-40 [facility] Comment on above: Order Comment: Speci men Type: BLOOD SPECIMENOrdering Facility: [facility] Address: [address] [place], [place] [address] Performed By: #### L IPNF, , 2132-06, ####[facility] [id number] [address] [address] [place] Bilirubin [Mass/Vol] 0.6 mg/dL Normal 0.2-1.3 [facility] Comment on above: Order Comment: Speci men Type: BLOOD SPECIMENOrdering Facility: [facility] Address: [address] [place] [address] Performed By: #### L IPNF, , 2132-06, ####[facility] [id number] [place] [address] [place] Calcium [Mass/Vol] 8.8 mg/dL Normal 8.5-10.2 [facility] Comment on above: Order Comment: Speci men Type: BLOOD SPECIMENOrdering Facility: [facility] Address: [address] [place] [address] Performed By: #### L IPNF, , 2132-06, ####[facility] [id number] [place] [address] [place] Chloride [Moles/Vol] 106 mmol/L Normal 98-107 [facility] Comment on above: Order Comment: Speci men Type: BLOOD SPECIMENOrdering Facility: [facility] Address: [address] [place] [address] Performed By: #### L IPNF, , 2132-06, ####[facility] [id number] [place] [address] [place] CO2 [Moles/Vol] 21 mmol/L Low 22-30 [facility] Comment on above: Order Comment: Speci men Type: BLOOD SPECIMENOrdering Facility: [facility] Address: [address] [place] [address] Performed By: #### L IPNF, , 2132-06, ####[facility] [id number] [place] [address] [place] Creatinine [Mass/Vol] 2.34 mg/dL High 0.73-1.22 [facility] Comment on above: Order Comment: Speci men Type: BLOOD SPECIMENOrdering Facility: [facility] Address: [address] [place] [address] Performed By: #### L IPNF, 24146-2, 2132-06, 25552-3 ####[facility] [id number] [place] [address] [place] Creatinine and Glomerular filtration rate.predicted panel (S/P/Bld) 27 mL/min/1.73m??? Low >=60 [facility] Comment on above: Order Comment: Marcelle shultz Type: BLOOD SPECIMENOrdering Facility: [facility] Address: [address] [place] [address] Result Comment: Lina mated Glomerular Filtration Rate [...] actual GFR. Performed By: #### L IPNF, 53543-8, 2132-06, ####[facility] [id number] [place] [address] [place] Glucose [Mass/Vol] 122 mg/dL High 74-99 [facility] Comment on above: Order Comment: Marcelle shultz Type: BLOOD SPECIMENOrdering Facility: [facility] Address: [address] [place] [address] Result Comment: The [place] Diabetes Association (ADA) provides guidance for cutoff [...] Standards of Medical Care in Diabetes 2016, [place] Diabetes Association. Diabetes Care. 2016.39(Suppl 1). Performed By: #### L IPNF, 47209-3, 2132-06, 49684-5 ####[facility]CL[facility] [id number] [address] [address] [place] Potassium [Moles/Vol] 4.3 mmol/L Normal 3.7-5.1 [facility] Comment on above: Order Comment: Speci men Type: BLOOD SPECIMENOrdering Facility: [facility] Address: [address] [place] [address] Performed By: #### L IPNF, , 2132-06, 97067-6 ####[facility] [id number] [place] [address] [place] Protein [Mass/Vol] 7.2 g/dL Normal 6.3-8.0 [facility] Comment on above: Order Comment: Speci men Type: BLOOD SPECIMENOrdering Facility: [facility] Address: [address] [place] [address] Performed By: #### L IPNF, , 2132-06, ####[facility] [id number] [address] [address] [place] Sodium [Moles/Vol] 142 mmol/L Normal 136-144 [facility] Comment on above: Order Comment: Speci men Type: BLOOD SPECIMENOrdering Facility: [facility] Address: [address] [place] [address] Performed By: #### L IPNF, , 2132-06, 69361-7 ####[facility] [id number] [address] [address] [place] Urea nitrogen [Mass/Vol] 29 mg/dL High 9-24 [facility] Comment on above: Order Comment: Speci men Type: BLOOD SPECIMENOrdering Facility: [facility] Address: [address] [place] [address] Performed By: #### L IPNF, 01643-4, 2132-9, 30357-9 ####[facility] LABIA [id number] [address] OF [facility] HbA1c (Bld)on 01-21-2025 Average glucose Estimated from glycated hemoglobin (Bld) [Mass/Vol] 146 mg/dL Normal [facility] Comment on above: Order Comment: Marcelle shultz Type: BLOOD SPECIMENOrdering Facility: [facility] Address: [address] [place] [address] Result Comment: eAG: (Estimated average glucose) is a calculated value from HgbA1c and is abrasives sales representative of the average blood glucose level in the last 2-3 month period. Performed By: #### 5 5454-3 ####[facility] LABIA [id number] [address] OF [facility] HbA1c (Bld) [Mass fraction] 6.7 % High 4.3-5.6 [facility] Comment on above: Order Comment: Marcelle shultz Type: BLOOD SPECIMENOrdering Facility: [facility] Address: [address] [place] [address] Result Comment: Amer [place] Diabetes Association guidelines indicate that patients with HgbA1c in the range 5.7-6.4% are at increased risk for development of diabetes, and intervention by lifestyle modification may be beneficial. HgbA1c greater or equal to 6.5% is considered diagnostic of diabetes. Performed By: #### 5 5454-3 ####[facility] LABIA [id number] [address] [address] [facility] LIPID PANEL, NONFASTINGon Cholesterol [Mass/Vol] 164 mg/dL Normal <200 [facility] Comment on above: Order Comment: Marcelle shultz Type: BLOOD SPECIMENOrdering Facility: [facility] Address: [address] [place] [address] Result Comment: <200 mg/dL, Desirable 200-239 mg/dL, Borderline high >239 mg/dL, High Performed By: #### L IPNF, , 2132-06, ####[facility] [id number] [address] [place] HDL CHOLESTEROL, NF 42 mg/dL Normal >39 [facility] Comment on above: Order Comment: Speci men Type: BLOOD SPECIMENOrdering Facility: [facility] Address: [address] [place] [address] Result Comment: 40-5 9 mg/dL, Acceptable >59 mg/dL, High: Negative risk factor for coronary heart disease <40 mg/dL, Low: Positive risk factor for coronary heart disease Performed By: #### L IPNF, , 2132-06, ####[facility]CLIA [id number] [address] LDL CHOLESTEROL, NF 96 mg/dL Normal <100 [facility] Comment on above: Order Comment: Speci men Type: BLOOD SPECIMENOrdering Facility: [facility] Address: [address] [place] [address] Result Comment: <100 mg/dL, Optimal 100-129 mg/dL, Near optimal/above optimal 130-159 mg/dL, Borderline high 160-189 mg/dL, High >189 mg/dL, Very high Secondary prevention optimal LDL Cholesterol levels are recommended to be < 70 mg/dL Performed By: #### L IPNF, , 2132-06, ####[facility]CL[facility] [id number] [address] [place] LDL/HDL RATIO, NF 2.29 mg/dL Normal <2.54 [facility] Comment on above: Order Comment: Speci men Type: BLOOD SPECIMENOrdering Facility: [facility] Address: [address] [place] [address] Result Comment: Refe rence: 1. National Cholesterol Education Program ATP III Guideline At-A-Glance Quick Desk Reference: National Heart, Lung, and Blood [place]. National Institutes of Health. 2001: NIH Publication No. 01-3305. 2. An International Atherosclerosis Society position paper: global recommendations for the management of dyslipidemia: executive summary, Atherosclerosis. 2014: 232(2):410-413. Performed By: #### L IPNF, , 2132-06, ####[facility]CL[facility] [id number] [address] [address] [place] NON HDL CHOL, NF 122 mg/dL Normal <130 [facility] Comment on above: Order Comment: Speci men Type: BLOOD SPECIMENOrdering Facility: [facility] Address: [address] [place] [address] Result Comment: <130 mg/dL, Optimal 130-159 mg/dL, Near optimal/above optimal 160-189 mg/dL, Borderline high 190-219 mg/dL, High >219 mg/dL, Very high Secondary prevention optimal non HDL Cholesterol levels are recommended to be <100 mg/dL Performed By: #### L IPNF, , 2132-06, ####[facility]CLIA [id number] [address] [address] [place] T CHOL/HDL RATIO NF 3.90 mg/dL Normal <5.10 [facility] Comment on above: Order Comment: Jocelini lexii Type: BLOOD SPECIMENOrdering Facility: [facility] Address: [address] [place] [address] Performed By: #### L IPNF, , 2132-06, ####[facility]CL[facility] [id number] [address] [address] [place] TRIGLYCERIDES, NF 129 mg/dL Normal <150 [facility] Comment on above: Order Comment: Jocelini men Type: BLOOD SPECIMENOrdering Facility: [facility] Address: [address] [place] [address] Result Comment: <150 mg/dL, Normal 150-199 mg/dL, Borderline high 200-499 mg/dL, High >499 mg/dL, Very high Performed By: #### L IPNF, , 2132-06, 16558-0 ####[facility] LABCLIA [id number] [place] [address] [place] VLDL CHOLESTEROL, NF 26 mg/dL Normal <30 [facility] Comment on above: Order Comment: Speci men Type: BLOOD SPECIMENOrdering Facility: [facility] Address: [address] [place] [address] Performed By: #### L IPNF, , 2132-06, ####[facility]CLIA [id number] [place] [address] [place] Magnesium [facility] 01-21 Magnesium [Mass/Vol] 2.3 mg/dL Normal 1.7-2.3 [facility] Comment on above: Order Comment: Speci men Type: BLOOD SPECIMENOrdering Facility: [facility] Address: [address] [place] [address] Performed By: #### L IPNF, , 2132-06, ####[facility]CLIA [id number] [address] OF [place] Vit B12 SerPl-mCncon 025 Cobalamin (Vitamin B12) [Mass/Vol] 385 pg/mL Normal 232-1245 [facility] Comment on above: Order Comment: Speci men Type: BLOOD SPECIMENOrdering Facility: [facility] Address: [address] [place] [address] Performed By: #### L IPNF, , 2132-06, ####[facility] LABCLIA [id number] [place] [address] [place] Molly 01-08-2025 KOURTNEYN Telephone ([facility]) -------- CAL MITCHELL ([id number]) 1945 M Date Time Provider Department 01/08/25 RUTHIE CUEVAS During your visit today, we recorded the following information about you: Ruthie Cuevas [facility] 01/08/2025 9:[address] 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 Ruthie Cuevas RPh 01/29/2025 11:08 AM Addendum Cal Mitchell was called and reminded to test INR today or as soon as possible. LVMX for January. Ruthie Cuevas PharmD Pharmacy Anticoagulation Clinic Allergies As of Date: 01/08/2025 (No Known Allergies) Date Reviewed: 08/06/2024 Reviewed by: Bi Cantu LPN - Fully Assessed Reason for Visit: Anticoagulation Follow Up [145] Cmt: Home INR result Primary Visit Diagnosis:senior care (current) use of anticoagulants [Z79.01] Other Visit [...] Date 01/08/2025 (more content not included)... Normal [facility] -------- CAL MITCHELL ([id number]) 1945 M Date Time Provider Department 12/30/24 [place] During your visit today, we recorded the following information about you: Twin Cole [facility] 12/30/2024 9:[address] [facility]tico[facility] Clinic Anticoagulation Episode Summary Anticoagulation Care Providers Provider Role Specialty Phone number Guanakito Reno MD [facility] [phone] Cal Mitchell is a 79 year old [...] missed any doses of warfarin. Twin Cole [facility] Clinical Pharmacist, Pharmacy Anticoagulation Clinic Pharmacy Anticoagulation Clinic Pager: [phone]. Octavio (Assistant Community Manager)Ruben 12/30/2024 9:15 AM Signed Roscoe'larry called regarding INR result for patient. Result has been addressed below, no further action needed. Ruben Cunningham, Manager Transfusion (procurement professional) Pharmacy Anticoagulation Clinic Jimmy Carrizales [facility] 01/07/2025 12:02 PM Signed Cal Mitchell was called, lvmx and reminded to test INR today or as soon as possible given that we left a VM last week also. [facility] Allergies As of Date: 12/30/2024 (No Known [...] Insulin: No - Lancets (ONE TOUCH DELICA) [facility] lancets Test blood sugar(s (more content not included)... Normal [facility] 12-11-2024 CNPN Telephone (BRIAN) -------- CAL MITCHELL ([id number]) 1945 M Date Time Provider Department 12/11/24 JIMMY CARRIZALES During your visit today, we recorded the following information about you: Jimmy Carrizales [facility] 12/11/2024 9:[address] 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 Jimmy Carrizales [facility] Clinical Pharmacist, Pharmacy Anticoagulation Clinic Pharmacy Anticoagulation Clinic Pager: [phone]. Ruthie Cuevas [facility] 12/25/2024 11:14 AM Signed Patient was due [...] Fu [148] Cmt: Home INR Primary Visit Diagnosis:senior care (current) use of anticoagulants [Z79.01] Other Visit [...] 11-26-2024 CNPN Telephone (PHAMTE) -------- CAL MITCHELL ([id number]) 1945 M Date Time Provider Department 11/26/24 [place] PHAMTE During your visit today, we recorded the following information about you: Twin Cole [facility] 11/26/2024 5:[address] [facility] Anticoagulation Clinic Anticoagulation Episode Summary Anticoagulation Care Providers Provider Role Specialty Phone number Guanakito Reno MD [facility] [phone] Cal Mitchell is a 79 year old [...] Pharmacy Anticoagulation Clinic Pharmacy Anticoagulation Clinic Pager: [phone]. Yamilka Heath RN 11/27/2024 8:43 AM Signed [...] Insulin: No - Lancets (ONE TOUCH DELICA) [facility] lancets Test blood sugar(s) one time daily. Dx: 250.00. Insulin: No Problem Lis (more content not included)... Normal [facility] Molly 10-28-2024 [facility] -------- CAL MITCHELL ([id number]) 1945 M Date Time Provider Department 10/28/24 ALEJANDRO MOLINA During your visit today, we recorded the following information about you: Alejandro Molina RPh 10/28/2024 5:[address] [facility] Anticoagulation Clinic Anticoagulation Episode Summary Anticoagulation Care Providers Provider Role Specialty Phone number Guanakito Reno MD [facility] [phone] Cal Mitchell is a 79 year old [...] instructed to call Pharmaceutical [facility]tico[facility] at [phone] with any questions or concerns. Alejandro Molina RPh Clinical Pharmacist, Pharmacy Anticoagulation Clinic Pharmacy Anticoagulation Clinic Pager: [phone] Alejandro Molina RPh 11/11/2024 4:42 PM Signed [...] PM Signed Added to discharge list Roldanministerio (Assistant Community Manager), Ashley 11/26/2024 2:43 PM Signed DISCHARGE No return call from patient. Letter sent. FINAL ATTEMPT letter sent at this time. If no response from patient within 4 weeks, patient will be discharged from PAC at that time. Will also route to referring MD as FYI and to see if office can assist in reaching patient. Ashley Sanchez CPhT (Manager Transfusion) Pharmacy Anticoagulation Clinic Guanakito Reno MD 11/26/2024 [...] things anymore. 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 CHANCE Ramirez ([employer])Ashley 11/26/2024 5:07 PM Signed PATIENT CALL Patient [...] received. PAC will await results. Ashley Sanchez ([facility] (more content not included)... Normal [facility] 10-21-2024 CNPN Telephone (SANCHOWS) -------- CAL MITCHELL ([id number]) 1945 M Date Time Provider Department 10/21/24 [...] for Visit: Patient Update [1234] Patient Question [4407] Prescriptions as of 10/21/2024 - atorvastatin (LIPITOR) [...] stenosis of unspecified carotid a*10/25/2013 03/26/2024 Frequency [[id number]] 02/11/2016 03/26/2024 BPH (benign prostatic hypertrophy) with urinary*02/11/2016 Adhesive capsulitis of right shoulder [M75.01] 05/15/2018 Aortic stenosis [I35.0] 05/24/2018 CKD (chronic kidney disease) stage 3, GFR 30-59*05/24/2018 03/26/2024 Lung (more content not included)... Normal [facility] CNPNon 10-01-2024 CNPN Telephone (PHAMTE) -------- CAL MITCHELL ([id number]) 1945 M Date Time Provider Department 10/01/24 [place] PHAKAROLYN During your visit today, we recorded the following information about you: Twin Cole [facility] 10/01/2024 9:[address] [facility] Anticoagulation Clinic Anticoagulation Episode Summary Anticoagulation Care Providers Provider Role Specialty Phone number Guanakito Reno MD [facility] Family Medicine [phone] Cal Mitchell is a 79 year old [...] Pharmacy Anticoagulation Clinic Pharmacy Anticoagulation Clinic Pager: [phone]. Twin Cole RPh 10/15/2024 12:10 PM Signed [...] tablet Dissolve (more content not included)... Normal [facility] Molly 08-26-2024 KOURTNEYN Telephone ([facility]) -------- CAL MITCHELL ([id number]) 1945 M Date Time Provider Department 08/26/24 ALEJANDRO MOLINA During your visit today, we recorded the following information about you: Alejandro Molina bobbi 08/26/2024 6:[address] [facility] Anticoagulation Clinic Anticoagulation Episode Summary Anticoagulation Care Providers Provider Role Specialty Phone number Guanakito Reno MD [facility] [phone] Cal Mitchell is a 79 year old [...] warfarin instructions: 5 mg every day Sent [place] message Advised patient to continue current weekly dose as noted above Next INR check due on 09/09/2024 Alejandro Molina [facility] Clinical Pharmacist, Pharmacy Anticoagulation Clinic Pharmacy Anticoagulation Clinic Pager: [phone]. Alejandro Molina bobbi 09/09/2024 4:38 PM Signed Patient was due to test INR today. Will continue to monitor for results. Will follow up in one week if no results received. Alejandro Molina [facility] 09/23/2024 2:35 PM Signed Cal Lua Paula was called and reminded to test INR today or as soon as possible. Alejandro Molina [facility] Twin Cole [facility] 09/30/2024 12:31 PM Signed Added to discharge [...] Insulin: No - Lancets (ONE TOUCH DELICA) [facility] lancets Test blood sugar(s) one time daily. Dx: 250.00. Insulin: No Problem List As Of Date 08/26/2024 Noted Resolved Hyperlipidemia, mixed [E78.2] Essential hypertension [I10] Peripheral arterial disease (HCC) [I73.9] Other symptoms involving cardiovascular system * 07/20/2016 ACTINIC KERATOSIS [L57.0] 10/12/2005 IMPACTED CERUMEN [H61.20] (more content not included)... Normal [facility] Molly 08-16-2024 [facility] -------- CAL MITCHELL ([id number]) 1945 M Date Time Provider Department 08/16/24 [...] hours as needed. - blood sugar diagnostic (WiredBenefitsTOUCH ULTRA TEST) test strip Test blood sugar(s) one times daily. Dx: 250.00. Insulin: No - Lancets (ONE TOUCH DELICA) [facility] lancets Test blood sugar(s) one [...] stenosis of unspecified carotid a*10/25/2013 03/26/2024 Frequency [YHB1071] 02/11/2016 03/26/2024 BPH (benign prostatic hypertrophy) with [...] Hypertensive kidney disease with stage 3 chroni*01/29/2020 senior care (current) use of anticoagulants [Z79.*02/04/2020 Dementia, vascular, mixed, with behavioral dist*08/26/2020 08/14/2023 Obesity, Class II, BMI 35-39.9 [E66.812] 08/15/2022 Aortic valve disorder [I35.9] 08/15/2022 Abnormal electrocardiography [R94.31] 08/14/2023 Diagnosed: 08/14/2023 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] 08/14/2023 Diagnosed: 08/14/2023 History (more content not included)... Normal [facility] Renal Profileon 08-07-2024 Albumin [Mass/Vol] 3.3 g/dL Normal 3.2-5.0 [facility] Comment on above: Performed By: #### L 500.3600 #### [facility] [address] [place], [address] BUN/CRE 14.3 RATIO Normal 08-04 [facility] Comment on above: Performed By: #### L 500.3600 #### [facility] [address] [place], [address] CA,Total 8.4 mg/dL Low 8.5-10.1 [facility] Comment on above: Performed By: #### L 500.3600 #### [facility] [address] [place], [address] Chloride [Moles/Vol] 114 mmol/L High 98-107 [facility] Comment on above: Performed By: #### L 500.3600 #### [facility] [address] [place], [address] CO2 [Moles/Vol] 25.0 mmol/L Normal 21.0-32.0 [facility] Comment on above: Performed By: #### L 500.3600 #### [facility] [address] [place], [address] Creatinine [Mass/Vol] 2.45 mg/dL High 0.70-1.30 [facility] Comment on above: Result Comment: The validity of the calculated GFR GFRAA in patients over 70 years has not been determined. Clinical correlation is essential. Performed By: #### L 500.3600 #### [facility] [address] [place], [address] EST GFR - AA 33 mL/min Low >60 [facility] Comment on above: Result Comment: Afri can Armenian GFR Calc Performed By: #### L 500.3600 #### [facility] [address] [place], [address] GFR/1.73 sq M.predicted among non-blacks MDRD (S/P/Bld) [Vol rate/Area] 27 mL/min/{1.73_m2} Low >60 [facility] Comment on above: Result Comment: Non- GFR Calc Performed By: #### L 500.3600 #### [facility] [address] [place], [address] Glucose [Mass/Vol] 111 mg/dL High 74-106 [facility] Comment on above: Result Comment: Fast ing Glucose result from 100 to 125 mg/dL suggests IMPAIRED HOMEOSTASIS per A.D.A. criteria. Performed By: #### L 500.3600 #### [facility] [address] [place], [address] Phosphate [Mass/Vol] 2.9 mg/dL Normal 2.5-4.9 [facility] Comment on above: Performed By: #### L 500.3600 #### [facility] [address] [place], [address] Potassium [Moles/Vol] 4.5 mmol/L Normal 3.5-5.1 [facility] Comment on above: Performed By: #### L 500.3600 #### [facility] [address] [place], [address] Sodium [Moles/Vol] 144 mmol/L Normal 136-145 [facility] Comment on above: Performed By: #### L 500.3600 #### [facility] [address] [place], [address] Urea nitrogen [Mass/Vol] 35 mg/dL High 7-18 [facility] Comment on above: Performed By: #### L 500.3600 #### [facility] [address] [place], [address] CNOVon 08-06-2024 CNOV Office Visit (ANNETTE DUDLEY) -------- CAL MITCHELL ([id number]) 1945 M Date Time Provider Department 10/22/24 1:00 PM LAURA IRAHETA AGVASACC During your visit today, we recorded the following information about you: Pulse Blood pressure Weight Height 61/minute 128/68 108.9 kg 1.778 m Laura Iraheta MD 08/06/2024 5:14 PM Signed [facility] [place] DEPARTMENT OF VASCULAR SURGERY OUTPATIENT VISIT DATE [...] (Patient no (more content not included)... Normal [facility] Molly 07-30-2024 LUCIO Telephone (AGCARDPOB ) -------- CAL MITCHELL ([id number]) 1945 M Date Time Provider Department 07/30/24 JOSSELYN MAYER During your visit today, we recorded the following information about you: Josselyn Mayer APRN.CNP 07/30/2024 10:44 AM Signed Attempted to contact patient and his family to update him on the treatment plan. Left voicemail requesting phone call back. QUIQUE Chapa Stacey, RN 07/31/2024 3:54 PM Signed Gustavo calls requesting a return call at [phone]. BENJIE Batres Nichole L, APRN.CNP 08/01/2024 9:58 AM Signed I spoke with Gustavo and communicated recommendations of medical therapy. He reports patient also expressed wanting to continue without any further intervention. Patient and family agreeable to plan. 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 Normal [facility] CNTRTMon 07-30-2024 CNTRTM Treatment Team (AGCARDPOB) -------- CAL MITCHELL ([id number]) 1945 M Date Time Provider Department 07/30/24 JOSSELYN MAYER During your visit today, we recorded the following information about you: Josselyn Mayer APRN.CNP 07/30/2024 10:47 AM Signed MULTI DISCIPLINARY HIGH RISK AVR CARDIAC TEAM Members present: Dr. Malcolm, Dr. Thacker, Dr. Norman, Dr. Escalera, Gian Boyd APRN, CNP, Frank Piña CNP, ALEJANDRA Ma., ALEJANDRA Rice, Niels Cardoza CNP, Tj Lambert, KOURTNEY, [...] Insulin: No - Lancets (ONE TOUCH DELICA) [facility] lancets Test blood sugar(s) one [...] stenosis of unspecified carotid a*10/25/2013 03/26/2024 Frequency [[id number]] 02/11/2016 03/26/2024 BPH (benign prostatic hypertrophy) with [...] Hypertensive kidney disease with stage 3 chroni*01/29/2020 senior care (current) use of anticoagulants [Z79.*02/04/2020 Dementia, vascular, mixed, with behavioral dist*08/26/2020 08/14/2023 Obesity, Class II, BMI 35-39.9 [E66.812] 08/15/2022 Aortic valve disorder [I35.9] 08/15/2022 Abnormal electrocardiography [R94.31] (more content not included)... Normal [facility] CNPIndu 07-25-2024 CNPN Telephone (PHAMTE) -------- CAL MITCHELL ([id number]) 1945 M Date Time Provider Department 07/25/24 JIMMY CARRIZALES PHAKAROLYN During your visit today, we recorded the following information about you: Jimmy Carrizales [facility] 07/25/2024 11:50 AM Signed Left voice message asking patient at [phone] (home) or daughter January to call the Anticoagulation Clinic at [phone] re: patient recenly off warfarin for heart cath on 07/23/24. Patient was prescribed Lovenox 100 mg sq Once daily by cardiology. Next Action for Anti coag Management: TM Remote Jimmy Carrizales PharmD., Kamran Jacobo [facility] 07/26/2024 4:30 PM Signed Called and left voice message for daughter January asking her to return call to Pharmacy Anticoagulation [facility] to discuss if Lovenox was started for patient. Josselyn Mayer, BULK PLANT SUPERVISOR.Chely Cho, RNYe (2:01 PM) I sent 8 [...] test INR. Kamran Ayon PharmD, Kamran Romero [facility] 07/27/2024 4:00 PM Signed Called daughter again to discuss if Lovenox was started for the patient after heart cath. No answer. Left message to return call to Pharmacy Anticoagulation [facility]. If no call back or INR by Monday, consider starting the discharge process. Kamran Ayon PharmD, Alejandro Kraus [facility] 07/29/2024 5:32 PM Signed Called daughter - no answer. Left voicemail instructing patient to test INR via home meter as soon as possible, and/or call us to provide update re: use of Lovenox. Twin Cole, [facility] 07/30/2024 10:18 AM Signed Called daughter. Left VM to call PAC at [phone]. Please check INR with home meter. Is patient on Lovenox? Ruthie Cuevas, [facility] 07/31/2024 3:51 PM Signed Called and LM [...] 2.1. Asked I'm to report that to [employer]. Advised him to continue 5mg daily and retest in 2 weeks. Ruthie Cuevas PharmD, CACP [facility] 08/14/2024 11:55 AM Signed Patient was due to test INR today will continue to monitor for results. Orville Ahn Samantha [facility] 08/21/2024 11:30 AM Signed Cal Mitchell was called and reminded to test INR today or as soon as possible. [employer] for pt's home number - January Quintanilla. Ruthie Cuevas PharmD Allergies As of Date: 07/25/2024 (No Known Allergies) Date Reviewed: 07/23/2024 Reviewed by: Dorothy Ray RN - Fully Assessed Reason for Visit: Anticoagulation [8] Cmt: Patient update Primary Visit Diagnosis:senior care (current) use of anticoagulants [Z79.01] Other Visit [...] Insulin: No - Lancets (ONE TOUCH DELICA) [facility] lancets Test blood sugar(s) one time daily. Dx: 250.00. Ins (more content not included)... Normal [facility] CATH DIAGNOSTICon 07-23 CARD CATH DIAGNOSTIC Site Id: [facility] Lab #: DEFAULT Study Date: 07/23/2024 [...] PCI Chuck (more content not included)... Normal [facility] CTA ABD/PELV W IVCONon 07-23 CTA ABD/PELV W IVCON * * *Final Report* * * DATE OF EXAM: Jul 23 2024 9:29AM [facility] 0311 - CTA ABD/PELV W IVCON / [...] b. Annulus-LM distance: 1.6 cm Annulus angulations: GERMAN 10 cranial 0 The ascending thoracic aorta [...] as dissection, intramural hematoma, or contained rupture. Patient Safety Sitter dimensions of the thoracic aorta are as follows: 3.8 cm at the sinuses of Valsalva (measured bhfqc-wp-fiawb) 3.0 cm at the sinotubular junction. 3.5 cm in the mid-ascending aorta 3.2 cm at the distal ascending aorta 3.2 cm at the mid-transverse arch 3.3 cm at the proximal descending thoracic aorta 2.9 cm at the diaphragmatic hiatus Patient Safety Sitter dimensions of the abdominal aorta are as follows: 2.7 cm at the supra-mesenteric segment 2.5 cm at the mesenteric segment 2.3 cm at the renal segment 2.0 cm at the infrarenal segment 1.9 cm at the aortic bi (more content not included)... Normal [facility] CTA CHEST (GATED) WO/W IVCON on 07-23-2024 CTA CHEST (GATED) WO/W IVCON * * *Final Report* * * DATE OF EXAM: Jul 23 2024 9:29AM [facility] 0126 - CTA CHEST (GATED) WO/W IVCON [...] b. Annulus-LM distance: 1.6 cm Annulus angulations: GERMAN 10 cranial 0 The ascending thoracic aorta [...] as dissection, intramural hematoma, or contained rupture. Patient Safety Sitter dimensions of the thoracic aorta are as follows: 3.8 cm at the sinuses of Valsalva (measured qsrjj-dk-feybs) 3.0 cm at the sinotubular junction. 3.5 cm in the mid-ascending aorta 3.2 cm at the distal ascending aorta 3.2 cm at the mid-transverse arch 3.3 cm at the proximal descending thoracic aorta 2.9 cm at the diaphragmatic hiatus Patient Safety Sitter dimensions of the abdominal aorta are as follows: 2.7 cm at the supra-mesenteric segment 2.5 cm at the mesenteric segment 2.3 cm at the renal segment 2.0 cm at the infrarenal segment 1.9 cm at the a (more content not included)... Normal [facility] HISTORY PHYSICALon HISTORY PHYSICAL HNO ID: [id number] Author: PAM REDDY MD Service: Cardiovascular Surgery [...] July 23, 2024 TIME: 9:42 AM Normal [facility] PT panel Coag (PPP)on 2023 INR Coag (PPP) [Relative time] 1.5 {INR} High 0.9-1.3 [facility] Comment on above: Order Comment: Speci men Type: BLOOD SPECIMENOrdering Facility: [facility] Address: [address] [place] [address] Result Comment: Valentina min K Antagonist (VKA) Therapeutic Range: INR 2 to 3 (Target INR of 2.5) Note: For patients treated with VKA drugs, such as warfarin, the [employer] 2012 Guideline recommends [...] Chest 2012, 141:7S-47S Rosa PAGAN et al. [facility] 2017, 70: 252-289 Performed By: #### 3 4528-0 ####[facility] [id number] [place] [address] [place] PT Coag (PPP) [Time] 15.0 s High <13.1 [facility] Comment on above: Order Comment: Speci men Type: BLOOD SPECIMENOrdering Facility: [facility] Address: [address] [place] [address] Performed By: #### 3 4528-0 ####[facility]LELIAleisha [id number] [address] OF [place] CNPNon 07-15-2024 [facility]) [facility] CAL MITCHELL ([id number]) 1945 M Date Time Provider Department 07/15/24 [place] [facility] During your visit today, we recorded the [...] Insulin: No - Lancets (ONE TOUCH DELICA) [facility] lancets Test blood sugar(s) one [...] stenosis of unspecified carotid a*10/25/2013 03/26/2024 Frequency [[id number]] 02/11/2016 03/26/2024 BPH (benign prostatic hypertrophy) with [...] 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 Normal [facility] CBC W Auto Differential pane l (Bld)on 07-12-2024 Basophils (Bld) [#/Vol] 0.07 10*3/uL Normal <0.11 [facility] Comment on above: Order Comment: Speci men Type: BLOOD SPECIMENOrdering Facility: [facility] Address: [address] [place] [address] Performed By: #### 5 7021-8 ####[facility] [id number] [place] [address] [place] Basophils/100 WBC (Bld) 1.1 % Normal [facility] Comment on above: Order Comment: Speci men Type: BLOOD SPECIMENOrdering Facility: [facility] Address: [address] [place] [address] Performed By: #### 5 7021-8 ####[facility] [id number] [place] [address] [place] Differential cell count method Nom (Bld) Auto Normal [facility] Comment on above: Order Comment: Speci men Type: BLOOD SPECIMENOrdering Facility: [facility] Address: [address] [place] [address] Performed By: #### 5 7021-8 ####[facility] [id number] [place] [address] [place] Eosinophils (Bld) [#/Vol] 0.40 10*3/uL Normal <0.46 [facility] Comment on above: Order Comment: Speci men Type: BLOOD SPECIMENOrdering Facility: [facility] Address: [address] [place] [address] Performed By: #### 5 7021-8 ####[facility] [id number] [place] [address] [place] Eosinophils/100 WBC (Bld) 6.3 % Normal [facility] Comment on above: Order Comment: Speci men Type: BLOOD SPECIMENOrdering Facility: [facility] Address: [address] [place] [address] Performed By: #### 5 7021-8 ####[facility] [id number] [place] [address] [place] Erythrocyte distribution width (RBC) [Ratio] 14.6 % Normal 11.5-15.0 [facility] Comment on above: Order Comment: Speci men Type: BLOOD SPECIMENOrdering Facility: [facility] Address: [address] [place] [address] Performed By: #### 5 7021-8 ####[facility] [id number] [place] [address] [place] Hematocrit (Bld) [Volume fraction] 34.7 % Low 39.0-51.0 [facility] Comment on above: Order Comment: Speci men Type: BLOOD SPECIMENOrdering Facility: [facility] Address: [address] [place] [address] Performed By: #### 5 7021-8 ####[facility] [id number] [place] [address] [place] Hemoglobin (Bld) [Mass/Vol] 10.3 g/dL Low 13.0-17.0 [facility] Comment on above: Order Comment: Speci men Type: BLOOD SPECIMENOrdering Facility: [facility] Address: [address] [place] [address] Performed By: #### 5 7021-8 ####[facility] [id number] [place] [address] [place] Immature granulocytes (Bld) [#/Vol] 0.03 10*3/uL Normal <0.10 [facility] Comment on above: Order Comment: Speci men Type: BLOOD SPECIMENOrdering Facility: [facility] Address: [address] [place] [address] Performed By: #### 5 7021-8 ####[facility] [id number] [place] [address] [place] Immature granulocytes/100 WBC (Bld) 0.5 % Normal [facility] Comment on above: Order Comment: Speci men Type: BLOOD SPECIMENOrdering Facility: [facility] Address: [address] [place] [address] Performed By: #### 5 7021-8 ####[facility] [id number] [place] [address] [place] Lymphocytes (Bld) [#/Vol] 1.30 10*3/uL Normal 1.00-4.00 [facility] Comment on above: Order Comment: Speci men Type: BLOOD SPECIMENOrdering Facility: [facility] Address: [address] [place] [address] Performed By: #### 5 7021-8 ####[facility] [id number] [place] [address] [place] Lymphocytes/100 WBC (Bld) 20.3 % Normal [facility] Comment on above: Order Comment: Speci men Type: BLOOD SPECIMENOrdering Facility: [facility] Address: [address] [place] [address] Performed By: #### 5 7021-8 ####[facility] [id number] [place] [address] [place] MCH (RBC) [Entitic mass] 30.5 pg Normal 26.0-34.0 [facility] Comment on above: Order Comment: Speci men Type: BLOOD SPECIMENOrdering Facility: [facility] Address: [address] [place] [address] Performed By: #### 5 7021-8 ####[facility] [id number] [place] [address] [place] MCHC (RBC) [Mass/Vol] 29.7 g/dL Low 30.5-36.0 [facility] Comment on above: Order Comment: Speci men Type: BLOOD SPECIMENOrdering Facility: [facility] Address: [address] [place] [address] Performed By: #### 5 7021-8 ####[facility] [id number] [place] [address] [place] MCV (RBC) [Entitic vol] 102.7 fL High 80.0-100.0 [facility] Comment on above: Order Comment: Speci men Type: BLOOD SPECIMENOrdering Facility: [facility] Address: [address] [place] [address] Performed By: #### 5 7021-8 ####[facility] [id number] [place] [address] [place] Monocytes (Bld) [#/Vol] 0.60 10*3/uL Normal <0.87 [facility] Comment on above: Order Comment: Speci men Type: BLOOD SPECIMENOrdering Facility: [facility] Address: [address] [place] [address] Performed By: #### 5 7021-8 ####[facility] [id number] [place] [address] [place] Monocytes/100 WBC (Bld) 9.4 % Normal C [facility] Comment on above: Order Comment: Speci men Type: BLOOD SPECIMENOrdering Facility: [facility] Address: [address] [place] [address] Performed By: #### 5 7021-8 ####[facility] [id number] [place] [address] [place] Neutrophils (Bld) [#/Vol] 4.00 10*3/uL Normal 1.45-7.50 [facility] Comment on above: Order Comment: Speci men Type: BLOOD SPECIMENOrdering Facility: [facility] Address: [address] [place] [address] Performed By: #### 5 7021-8 ####[facility] [id number] [place] [address] [place] Neutrophils/100 WBC (Bld) 62.4 % Normal [facility] Comment on above: Order Comment: Speci men Type: BLOOD SPECIMENOrdering Facility: [facility] Address: [address] [place] [address] Performed By: #### 5 7021-8 ####[facility] [id number] [place] [address] [place] Nucleated RBC (Bld) [#/Vol] 10*3/uL Normal <0.01 [facility] Comment on above: Order Comment: Speci men Type: BLOOD SPECIMENOrdering Facility: [facility] Address: [address] [place] [address] Performed By: #### 5 7021-8 ####[facility] [id number] [place] [address] [place] Nucleated RBC/100 WBC (Bld) [Ratio] 0.0 /100 WBC Normal [facility] Comment on above: Order Comment: Speci men Type: BLOOD SPECIMENOrdering Facility: [facility] Address: [address] [place] [address] Performed By: #### 5 7021-8 ####[facility] [id number] [place] [address] [place] Platelet mean volume (Bld) [Entitic vol] 10.5 fL Normal 9.0-12.7 [facility] Comment on above: Order Comment: Speci men Type: BLOOD SPECIMENOrdering Facility: [facility] Address: [address] [place] [address] Performed By: #### 5 7021-8 ####[facility] [id number] [place] [address] [place] Platelets (Bld) [#/Vol] 190 10*3/uL Normal 150-400 [facility] Comment on above: Order Comment: Speci men Type: BLOOD SPECIMENOrdering Facility: [facility] Address: [address] [place] [address] Performed By: #### 5 7021-8 ####[facility] [id number] [place] [address] [place] RBC (Bld) [#/Vol] 3.38 10*6/uL Low 4.20-6.00 [facility] Comment on above: Order Comment: Speci men Type: BLOOD SPECIMENOrdering Facility: [facility] Address: [address] [place] [address] Performed By: #### 5 7021-8 ####[facility] [id number] [place] [address] [place] WBC (Bld) [#/Vol] 6.40 10*3/uL Normal 3.70-11.00 [facility] Comment on above: Order Comment: Speci men Type: BLOOD SPECIMENOrdering Facility: [facility] Address: [address] [place] [address] Performed By: #### 5 7021-8 ####[facility] [id number] [place] [address] [place] CNOVon 07-12-2024 CNOV Office Visit (FAMPWS ) -------- CAL MITCHELL ([id number]) 1945 M Date Time Provider Department 07/12/24 [...] or worsening shortness of breath. Currently wearing [employer] heart monitor. Placed yesterday. Follows with Cardiology. [...] 250.00. Insulin: No Lancets (ONE TOUCH DELICA) [facility] lancets Test blood sugar(s) one [...] Use Smoking (more content not included)... Normal [facility] Office Visit (FAMPWS ) -------- CAL MITCHELL ([id number]) 1945 M Date Time Provider Department 07/12/24 [facility] During your visit today, we recorded [...] Insulin: No - Lancets (ONE TOUCH DELICA) [facility] lancets Test blood sugar(s) one [...] stenosis of unspecified carotid a*10/25/2013 03/26/2024 Frequency [[id number]] 02/11/2016 03/26/2024 BPH (benign prostatic hypertrophy) with [...] Hypertensive kidney disease with stage 3 chroni*01/29/2020 senior care (current) use of anticoagulants [Z79.*02/04/2020 Dementia, vascular, [...] Encounter Status:Closed by GUANAKITO RENO on 07/15/24 [facility] 07-12-2024 CNPN Telephone (INTMWS) -------- PAULACAL Lua ([id number]) 1945 M Date Time Provider Department 07/12/24 GUANAKITO RENO INTMWS During your visit today, we recorded the following information about you: JacobDeanna pizarrory 07/12/2024 12:40 PM Signed Attempted to find sooner apt time for patients nephrology apt, no sooner times within [facility] facilities that are faster than patients [facility] apt. Guanakito Reno MD 07/12/2024 12:49 PM [...] hours as needed. - blood sugar diagnostic ([employer] ULTRA TEST) test strip Test blood sugar(s) one times daily. Dx: 250.00. 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 [Z79.*02/04/2020 Dementia, vascular, [...] Status:Closed by GUANAKITO RENO on 07/12/24 Normal [facility] metabolic 2000 panelon 07-12-2024 Albumin [Mass/Vol] 3.8 g/dL Low 3.9-4.9 [facility] Comment on above: Order Comment: Speci men Type: BLOOD SPECIMENOrdering Facility: [facility] Address: [address] [place] [address] Performed By: #### L IPNF, 85244-1, 76517-1 ####[facility] LABCLIA [id number] [place] [address] [place] ALP [Catalytic activity/Vol] 123 U/L High 38-113 [facility] Comment on above: Order Comment: Speci men Type: BLOOD SPECIMENOrdering Facility: [facility] Address: [address] [place] [address] Performed By: #### L IPNF, 40474-4, ####[facility] LABCLIA [id number] [place] [address] [place] ALT [Catalytic activity/Vol] 23 U/L Normal 10-54 [facility] Comment on above: Order Comment: Speci men Type: BLOOD SPECIMENOrdering Facility: [facility] Address: [address] [place] [address] Performed By: #### L IPNF, 93001-4, ####[facility] LABCLIA [id number] [place] [address] [place] Anion gap [Moles/Vol] 11 mmol/L Normal 8-15 [facility] Comment on above: Order Comment: Speci men Type: BLOOD SPECIMENOrdering Facility: [facility] Address: [address] [place] [address] Performed By: #### L IPNF, 22780-1, ####[facility] LABCLIA [id number] [place] [address] [place] AST [Catalytic activity/Vol] 25 U/L Normal 14-40 [facility] Comment on above: Order Comment: Speci men Type: BLOOD SPECIMENOrdering Facility: [facility] Address: [address] [place] [address] Performed By: #### L IPNF, 19750-3, 88183-8 ####[facility] LABCLIA [id number] [place] [address] [place] Bilirubin [Mass/Vol] 0.4 mg/dL Normal 0.2-1.3 [facility] Comment on above: Order Comment: Speci men Type: BLOOD SPECIMENOrdering Facility: [facility] Address: [address] [place] [address] Performed By: #### L IPNF, 82787-3, 19339-6 ####[facility] LABCLIA [id number] [place] [address] [place] Calcium [Mass/Vol] 8.2 mg/dL Low 8.5-10.2 [facility] Comment on above: Order Comment: Speci men Type: BLOOD SPECIMENOrdering Facility: [facility] Address: [address] [place] [address] Performed By: #### L IPNF, 01928-9, ####[facility] LABCLIA [id number] [place] [address] [place] Chloride [Moles/Vol] 110 mmol/L High 98-107 [facility] Comment on above: Order Comment: Speci men Type: BLOOD SPECIMENOrdering Facility: [facility] Address: [address] [place] [address] Performed By: #### L IPNF, 19926-6, ####[facility] LABCLIA [id number] [place] [address] [place] CO2 [Moles/Vol] 22 mmol/L Normal 22-30 [facility] Comment on above: Order Comment: Speci men Type: BLOOD SPECIMENOrdering Facility: [facility] Address: [address] [place] [address] Performed By: #### L IPNF, 05245-8, 71179-6 ####[facility] LABCLIA [id number] [place] [address] [place] Creatinine [Mass/Vol] 2.40 mg/dL High 0.73-1.22 [facility] Comment on above: Order Comment: Speci men Type: BLOOD SPECIMENOrdering Facility: [facility] Address: [address] [place] [address] Performed By: #### L IPNF, 60518-9, 17816-1 ####[facility] LABIA [id number] [place] [address] [place] Creatinine and Glomerular filtration rate.predicted panel (S/P/Bld) 26 mL/min/1.73m??? Low >=60 [facility] Comment on above: Order Comment: Marcelle shultz Type: BLOOD SPECIMENOrdering Facility: [facility] Address: [address] [place] [address] Result Comment: Lina mated Glomerular Filtration Rate [...] actual GFR. Performed By: #### L IPNF, 86692-9, 31846-9 ####[facility] LABIA [id number] [place] [id number] [place] Glucose [Mass/Vol] 100 mg/dL High 74-99 [facility] Comment on above: Order Comment: Speci men Type: BLOOD SPECIMENOrdering Facility: [facility] Address: [address] [place] [address] Result Comment: The [place] Diabetes Association (ADA) provides guidance for cutoff [...] Standards of Medical Care in Diabetes 2016, [place] Diabetes Association. Diabetes Care. 2016.39(Suppl 1). Performed By: #### L IPNF, 89906-0, ####[facility] LABCLIA [id number] [place] [address] [place] Potassium [Moles/Vol] 4.6 mmol/L Normal 3.7-5.1 [facility] Comment on above: Order Comment: Speci men Type: BLOOD SPECIMENOrdering Facility: [facility] Address: [address] [place] [address] Performed By: #### L IPNF, 77354-5, ####[facility] LABIA [id number] [place] [address] [place] Protein [Mass/Vol] 6.6 g/dL Normal 6.3-8.0 [facility] Comment on above: Order Comment: Speci men Type: BLOOD SPECIMENOrdering Facility: [facility] Address: [address] [place] [address] Performed By: #### L IPNF, 18832-3, ####[facility] LABCLIA [id number] [place] [address] [place] Sodium [Moles/Vol] 143 mmol/L Normal 136-144 [facility] Comment on above: Order Comment: Speci men Type: BLOOD SPECIMENOrdering Facility: [facility] Address: [address] [place] [address] Performed By: #### L IPNF, 41067-1, ####[facility] LABCLIA [id number] [place] [address] [place] Urea nitrogen [Mass/Vol] 37 mg/dL High 9-24 [facility] Comment on above: Order Comment: Marcelle suhltz Type: BLOOD SPECIMENOrdering Facility: [facility] Address: [address] [place] [address] Performed By: #### L IPNF, 46318-5, 88145-4 ####[facility] LABCLIA [id number] [place] [address] [place] HbA1c (Bld)on 07-12-2024 Average glucose Estimated from glycated hemoglobin (Bld) [Mass/Vol] 134 mg/dL Normal [facility] Comment on above: Order Comment: Marcelle shultz Type: BLOOD SPECIMENOrdering Facility: [facility] Address: [address] [place] [address] Result Comment: eAG: (Estimated average glucose) is a calculated value from HgbA1c and is abrasives sales representative of the average blood glucose level in the last 2-3 month period. Performed By: #### 5 5454-3 ####[facility] LABCLIA [id number] [place] [address] [place] HbA1c (Bld) [Mass fraction] 6.3 % High 4.3-5.6 [facility] Comment on above: Order Comment: Marcelle shultz Type: BLOOD SPECIMENOrdering Facility: [facility] Address: [address] [place] [address] Result Comment: Amer ican Diabetes Association guidelines indicate that patients with HgbA1c in the range 5.7-6.4% are at increased risk for development of diabetes, and intervention by lifestyle modification may be beneficial. HgbA1c greater or equal to 6.5% is considered diagnostic of diabetes. Performed By: #### 5 5454-3 ####[facility] LABCLIA [id number] [place] [address] [place] LIPID PANEL, NONFASTINGon Cholesterol [Mass/Vol] 156 mg/dL Normal <200 [facility] Comment on above: Order Comment: Speci men Type: BLOOD SPECIMENOrdering Facility: [facility] Address: [address] [place] [address] Result Comment: <200 mg/dL, Desirable 200-239 mg/dL, Borderline high >239 mg/dL, High Performed By: #### L IPNF, 64975-2, 51623-2 ####[facility] LABCLIA [id number] [place] [address] [place] HDL CHOLESTEROL, NF 44 mg/dL Normal >39 [facility] Comment on above: Order Comment: Speci men Type: BLOOD SPECIMENOrdering Facility: [facility] Address: [address] [place] [address] Result Comment: 40-5 9 mg/dL, Acceptable >59 mg/dL, High: Negative risk factor for coronary heart disease <40 mg/dL, Low: Positive risk factor for coronary heart disease Performed By: #### L IPNF, 22511-3, 60526-3 ####[facility] LABCLIA [id number] [address] OF [facility] LDL CHOLESTEROL, NF 93 mg/dL Normal <100 [facility] Comment on above: Order Comment: Speci men Type: BLOOD SPECIMENOrdering Facility: [facility] Address: [address] [place] [address] Result Comment: <100 mg/dL, Optimal 100-129 mg/dL, Near optimal/above optimal 130-159 mg/dL, Borderline high 160-189 mg/dL, High >189 mg/dL, Very high Secondary prevention optimal LDL Cholesterol levels are recommended to be < 70 mg/dL Performed By: #### L IPNF, 03045-9, 15365-3 ####[facility] LABCLIA [id number] [address] OF [place] LDL/HDL RATIO, NF 2.11 mg/dL Normal <2.54 [facility] Comment on above: Order Comment: Speci men Type: BLOOD SPECIMENOrdering Facility: [facility] Address: [address] [place], [place] [address] Result Comment: Scot soto: 1. National Cholesterol Education Program ATP III Guideline At-A-Glance Quick Desk Reference: National Heart, Lung, and Blood [place]. National Institutes of Health. 2001: NIH Publication No. 01-3305. 2. An International Atherosclerosis Society position paper: global recommendations for the management of dyslipidemia: executive summary, Atherosclerosis. 2014: 232(2):410-413. Performed By: #### L IPNF, 41037-7, 76801-3 ####[facility] LABCLIA [id number] [place] [address] [place] NON HDL CHOL, NF 112 mg/dL Normal <130 [facility] Comment on above: Order Comment: Speci men Type: BLOOD SPECIMENOrdering Facility: [facility] Address: [address] [place] [address] Result Comment: <130 mg/dL, Optimal 130-159 mg/dL, Near optimal/above optimal 160-189 mg/dL, Borderline high 190-219 mg/dL, High >219 mg/dL, Very high Secondary prevention optimal non HDL Cholesterol levels are recommended to be <100 mg/dL Performed By: #### L IPNF, 75594-2, 37826-0 ####[facility] LABCLIA [id number] [place] [address] [place] T CHOL/HDL RATIO NF 3.55 mg/dL Normal <5.10 [facility] Comment on above: Order Comment: Speci men Type: BLOOD SPECIMENOrdering Facility: [facility] Address: [address] [place] [address] Performed By: #### L IPNF, 90562-7, 52784-1 ####[facility] LABCLIA [id number] [place] [address] [place] TRIGLYCERIDES, NF 97 mg/dL Normal <150 [facility] Comment on above: Order Comment: Speci men Type: BLOOD SPECIMENOrdering Facility: [facility] Address: [address] [place] [address] Result Comment: <150 mg/dL, Normal 150-199 mg/dL, Borderline high 200-499 mg/dL, High >499 mg/dL, Very high Performed By: #### L IPRENATO, 76723-8, 10777-0 ####[facility] LABCLIA [id number] [place] [address] [place] VLDL CHOLESTEROL, NF 19 mg/dL Normal <30 [facility] Comment on above: Order Comment: Speci lexii Type: BLOOD SPECIMENOrdering Facility: [facility] Address: [address] [place] [address] Performed By: #### L WAYLON, 63308-0, 28994-9 ####[facility] LABCLIA [id number] [address] [place] NT-proBNP [facility] 07-12 Natriuretic peptide.B prohormone N-Terminal [Mass/Vol] 314 pg/mL Normal <450 [facility] Comment on above: Order Comment: Marcelle shultz Type: BLOOD SPECIMENOrdering Facility: [facility] Address: [address] [place] [address] Performed By: #### L WAYLON, 18544-8, 89089-0 ####[facility] LABIA [id number] [place] [address] [place] PT panel Coag (PPP)on 2023 INR Coag (PPP) [Relative time] 2.8 {INR} High 0.9-1.3 [facility] Comment on above: Order Comment: Marcelle shultz Type: BLOOD SPECIMENOrdering Facility: [facility] Address: [address] [place] [address] Result Comment: Valentina min K Antagonist (VKA) Therapeutic Range: INR 2 to 3 (Target INR of 2.5) Note: For patients treated with VKA drugs, such as warfarin, the [place] College of [employer]icians 2012 Guideline recommends [...] Chest 2012, 141:7S-47S Rosa RA, et al. [facility] 2017, 70: 252-289 Performed By: #### 3 4528-0 ####[facility] [id number] [place] [address] [place] PT Coag (PPP) [Time] 27.0 s High 9.7-13.0 [facility] Comment on above: Order Comment: Speci men Type: BLOOD SPECIMENOrdering Facility: [facility] Address: [address] [place] [address] Performed By: #### 3 4528-0 ####[facility] [id number] [place] CNOVon 07-10-2024 CNOV Office Visit (AGTAVR ) -------- CAL MITCHELL ([id number]) 1945 M Date Time Provider Department 07/10/24 [...] 10, 2024 TIME: 8:06 AM PAGER/CONTACT #: [phone] Laurenramesh Josselynmegha Lua APRN.[facility] 07/10/2024 9:31 AM Addendum Today, you [...] to sandeep (more content not included)... Normal [facility] CNOV Office Visit (AGTAVR ) -------- CAL MITCHELL ([id number]) 1945 M Date Time Provider Department 07/10/24 [...] 10, 2024 TIME: 8:13 AM PAGER/CONTACT #: [phone] Cal Thacker MD 07/10/2024 9:32 AM Signed PRIMARY CARE PHYSICIAN: [place] [address] Subjective Chief Complaint Patient presents with: Aortic [...] Systolic murmur (more content not included)... Normal [facility] ECG B/O W INTERP (MED OFFICE )on 07-10-2024 Sinus rhythm with fi rst degree heart block [facility] NURSING PROGon 07-10-2024 NURSING PROG HNO ID: [id number] Author: JUDY DÍAZ, Service Unit Operator Oil Well Service: ? Author Type: Service Unit Operator [employer] Well Type: Nursing Progress Note Filed: 07/10/2024 10:29 Note Text: Applied 14 day extended wear EKG patch. Pt verbalized understanding of monitor use / diary. Normal [facility] CNPNon 07-05-2024 CNPN Telephone (PHAInfluitive) -------- CAL MITCHELL ([id number]) 1945 M Date Time Provider Department 07/05/24 ANNAMARIE GARCIA During your visit today, we recorded the following information about you: Annamarie Garcia RPh 07/05/2024 9:[address] 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 Jimmy Carrizales [facility] 07/18/2024 2:29 PM Signed Patient was due to test INR today. Will continue to monitor for results. Follow up in one week if no results received. Jimmy Carrizales [facility] Allergies As of Date: 07/05/2024 (No Known Allergies) Date Reviewed: 06/06/2024 Reviewed by: Carolina Landeros APRN.AIR ROUTE TRAFFIC CONTROLLER - Fully Assessed Reason for Visit: Anticoagulation Telephone Fu [148] Primary Visit Diagnosis:senior care (current) use of anticoagulants [Z79.01] Other Visit [...] OTHER ABNORM (more content not included)... Normal [facility] 20[facility] -------- CAL MITCHELL ([id number]) 1945 M Date Time Provider Department 06/27/24 GUANAKITO RENO [facility] During your visit today, we recorded the following information about you: Allergies As of Date: 2024 (No Known Allergies) Date Reviewed: 06/06/2024 Reviewed by: Carolina Landeros APRN.AIR ROUTE TRAFFIC CONTROLLER - Fully Assessed Primary Visit Diagnosis:Screen for colon cancer [Z12.11] Order(s):IMMUNOCHEMICAL FECAL OCCULT BLOOD TEST [SQIFOBT] Order #: [id number]. #:[id number] Prescriptions as of 2024 - atorvastatin (LIPITOR) [...] Insulin: No - Lancets (ONE TOUCH DELICA) [facility] lancets Test blood sugar(s) one [...] stenosis of unspecified carotid a*10/25/2013 03/26/2024 Frequency [HZP2104] 02/11/2016 03/26/2024 BPH (benign prostatic hypertrophy) with [...] Hypertensive kidney disease with stage 3 chroni*01/29/2020 senior care (current) use of anticoagulants [Z79.*02/04/2020 Dementia, vascular, [...] Status:Closed by GUANAKITO RENO on 06/27/24 Normal [facility] Hemoccult Stl Ql IAon 2023 Lower GI hemoglobin IA Ql (Stl) Negative Normal Negative [facility] Comment on above: Order Comment: Speci men Type: STOOL SPECIMENOrdering Facility: [facility] Address: [address] [place] [address] Performed By: #### 2 9771-3 ####[facility] LABCL[facility] [id number] [facility] ERK [id number] OF [facility] CNPIndu 06-18-2024 CNPN Telephone (PHAMTE) -------- CAL MITCHELL ([id number]) 1945 M Date Time Provider Department 06/18/24 JIMMY CARRIZALES During your visit today, we recorded the following information about you: [facility] 06/18/2024 8:[address] [facility]ticoagulation Clinic Anticoagulation Episode Summary Anticoagulation Care Providers Provider Role Specialty Phone number Guanakito Reno MD [facility] Family Medicine [phone] Cal Mitchell is a 78 year old [...] 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: senior care (current) use of anticoagulants Paroxysmal atrial fibrillation [...] Pharmacy Anticoagulation Clinic Pharmacy Anticoagulation Clinic Pager: [phone]. Jimmy Carrizales RPh 07/02/2024 5:21 PM Signed Patient was due to test INR today. Will continue to monitor for results. Follow up in one week if no results received. Jimmy Carrizales RPh Allergies As of Date: 06/18/2024 (No Known Allergies) Date Reviewed: 06/06/2024 Reviewed by: Carolina Landeros APRN.AIR ROUTE TRAFFIC CONTROLLER - Fully Assessed Reason for Visit: Anticoagulation Telephone Fu [148] Cmt: Home INR Primary Visit Diagnosis:senior care (current) use of anticoagulants [Z79.01] Other Visit [...] Insulin: No - Lancets (ONE TOUCH DELICA) [facility] lancets Test blood sugar(s) one [...] 05/24/2018 Occlu (more content not included)... Normal [facility] CNOVon 06-06-2024 CNOV Office Visit (FAMPWS ) -------- PAULACAL Lua ([id number]) 1945 M Date Time Provider Department 06/06/24 11:20 AM [facility] During your visit today, we recorded [...] 250.00. Insulin: No Lancets (ONE TOUCH DELICA) [facility] lancets Test blood sugar(s) one [...] breath so (more content not included)... Normal [facility] CNOVon 06-05-2024 CNOV Office Visit (UCWSTR ) -------- CAL MITCHELL ([id number]) 1945 M Date Time Provider Department 06/05/24 [...] ago Patients daughter had sent in a [employer] message on 06/03/24. At that time she [...] is provided by the patient. No english language learner tutor was used. Edema This is a new [...] chest tigh (more content not included)... Normal [facility] CNPNon 05-20-2024 CNPN Telephone (AGCARDPOB ) -------- CAL MITCHELL ([id number]) 1945 M Date Time Provider Department 05/20/24 [...] PM Signed ----- Message from Josselyn Mayer APRN.AIR ROUTE TRAFFIC CONTROLLER sent at 05/20/2024 2:28 PM EDT ----- Creatinine 2.3. Per chart review he was asymptomatic but had an episode of syncope. Do you want work up first or just valve clinic? Josselyn ----- Message ----- From: Pam Reddy MD Sent: 05/18/2024 8:44 AM EDT To: Chely Nicolas RN; Josselyn Mayer APRN.AIR ROUTE TRAFFIC CONTROLLER Aortic stenosis need to establish care at the valve clinic Chely Zeng RN 05/23/2024 8:26 AM Signed Pam Reddy MD You; Josselyn Mayer, BULK PLANT SUPERVISOR.CNP15 hours ago (4:42 PM) Let's see at [...] Insulin: No - [facility]ONE TOUCH DELICA) [facility] blood sugar(s) one time [...] stenosis of unspecified carotid a*10/25/2013 03/26/2024 Frequency [ZFQ0380] 02/11/2016 03/26/2024 BPH (benign prostatic hypertrophy) with [...] Hypertensive kidney disease with stage 3 chroni*01/29/2020 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 [facility] KOURTNEYN Telephone (AGCARDPOB ) -------- CAL MITCHELL ([id number]) 1945 M Date Time Provider Department 05/20/24 JOSSELYN MAYER During your visit today, we recorded the following information about you: Josselyn Mayer APRN.AIR ROUTE TRAFFIC CONTROLLER 05/20/2024 2:34 PM Signed Attempted to call [...] LPN - Fully Assessed Reason for Visit: [employer] Worker - Other [3602] Prescriptions as of 07/22/2024 [...] Insulin: No - Lancets (ONE TOUCH DELICA) [facility] lancets Test blood sugar(s) one [...] stenosis of unspecified carotid a*10/25/2013 03/26/2024 Frequency [[id number]] 02/11/2016 03/26/2024 BPH (benign prostatic hypertrophy) with [...] Hypertensive kidney disease with stage 3 chroni*01/29/2020 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 [Z79.*02/04/2020 Dementia, vascular, mixed, with behavioral dist*08/26/2020 08/14/2023 Obesity, Class II, BMI 35-39.9 [E66.812] 08/15/2022 Aortic valve disorder [I35.9] 08/15/2022 Abnormal electrocardiography [R94.31] 08/14/2023 Diagnosed: 08/14/2023 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 (more content not included)... Normal [facility] CNPNon 05-17-2024 CNPN Telephone (PHARSO) -------- CAL MITCHELL ([id number]) 1945 M Date Time Provider Department 05/17/24 DOROTHY SAINZ During your visit today, we recorded the following information about you: Dorothy Sainz bobbi 05/17/2024 9:[address] [facility] Ambulatory Pharmacy Anticoagulation Clinic Anticoagulation Episode Summary Anticoagulation Care Providers Provider Role Specialty Phone number Guanakito Reno MD [facility] Family Medicine [phone] Cal Mitchell is a 78 year old [...] 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: 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 Paroxysmal atrial fibrillation (hcc) Anticoagulation Episode Summary Current INR goal: 2.0-3.0 Assessment: INR result of 2.8is therapeutic Plan: Current Warfarin Dosing As of 05/17/2024 Full warfarin instructions: 5 mg every day Sent [place] message Advised patient to continue current weekly dose as noted above Next home INR check scheduled on 05/30/2024 Dorothy Sainz [facility] Clinical Pharmacist, Pharmacy Anticoagulation Clinic Pharmacy Anticoagulation Clinic Pager: [phone]. Jimmy Carrizales [facility] 05/30/2024 3:39 PM Signed Patient was due to test INR today. Will continue to monitor for results. Follow up in one week if no results received. Jimmy Carrizales [facility] Jimmy Carrizales [facility] 06/06/2024 2:34 PM Signed Cal Mitchell was called, lvmx and reminded to test INR today or as soon as possible. Jimmy Carrizales [facility] Jimmy Carrizales [facility] 06/13/2024 11:42 AM Signed Cal Mitchell was called, lvmx and reminded to test INR today or as soon as possible. Jimmy Carrizales [facility] Daniel (Assistant Community Manager)Ashley 06/13/2024 5:04 PM Signed DISCHARGE No return call from patient. Letter sent. FINAL ATTEMPT letter sent at this time. If no response from patient within 3 weeks, patient will be discharged from PAC at that time. Will also route to referring MD as FYI and to see if office can assist in reaching patient. Ashley Sanchez CPhT (Manager Transfusion) Pharmacy Anticoagulation Clinic' Allergies As of Date: 05/17/2024 (No Known Allergies) Date Reviewed: 05/06/2024 Reviewed by: Twin Garcia LPN - Fully Assessed Reason for Visit: Anticoagulation Telephone Fu [148] Primary Visit Diagnosis:senior care (current) use of anticoagulants [Z79.01] Other Visit [...] hours as needed. - blood sugar diagnostic (WiredBenefitsTOUCH ULTRA TEST) test strip Test blood sugar(s) one times daily. Dx: 250.00. Insulin: No - Lancets (ONE TOUCH DELICA) [facility] lancets Test blood sugar(s) one time daily. Dx: 250.00. Insulin: No Problem List As Of Date 05/17/2024 Noted Resolved Hyperlipidemia, mixed [E78.2] Essential hypertension [I10] Peripheral arterial disease (HCC) [I73.9] Other symptoms involving cardiovascular system * 07/20/2016 ACTI (more content not included)... Normal [facility] Kidney - bilateral and Ur inary bladderon 05-02-2024 IMPRESSION: No hydronephrosis. Cholelithiasis. Rail Grinder: MAC Transcribe Date/Time: May 02 2024 7:17P Dictated by : TIN COTTER DO This examination was interpreted and the report reviewed and electronically signed by: TIN COTTER DO on May 02 2024 7:19PM [facility] DIVISION OF RADIOLOGY * * *Final [...] Incidentally noted cholelithiasis. DIVISION OF RADIOLOGY Provider, [facility] - 05/02/2024 * * *Final [...] noted cholelithiasis. IMPRESSION IMPRESSION: No hydronephrosis. Cholelithiasis. Rail Grinder: MAC Transcribe Date/Time: May 02 2024 7:17P Dictated by : TIN COTTER DO This examination was interpreted and the report reviewed and electronically signed by: TIN COTTER DO on May 02 2024 7:19PM [facility] Radiology Study observation (narrative) Alexx mckinnon [facility] US Kidney - bilateral and Ur inary bladderOrdered By: Ccf Provider on 05-02-2024 [facility] NT PRO BNPon 03-26-2024 Natriuretic peptide.B prohormone N-Terminal [Mass/Vol] 501 pg/mL High NINF - 450 pg/mL [facility] Natriuretic peptide.B prohor jodie N-Terminal [Mass/Vol]on 03-26-2024 Interpretation and review of laboratory results Abnormal [facility] THYROID STIMULATING HORMONEo n 03-26-2024 TSH Qn 2.950 m[IU]/L [facility] TSH Qnon 03-26-2024 Interpretation and review of laboratory results Normal [facility] CBC panel Auto (Bld)on 03-25 Erythrocyte distribution width (RBC) [Ratio] 14.9 % 11.5 - 15.0 % [facility] Hematocrit (Bld) [Volume fraction] 31.8 % Low 39.0 - 51.0 % [facility] Hemoglobin (Bld) [Mass/Vol] 9.6 g/dL Low 13.0 - 17.0 g/dL [facility] Interpretation and review of laboratory results Abnormal [facility] MCH (RBC) [Entitic mass] 30.9 pg 26.0 - 34.[address] [facility] MCHC (RBC) [Mass/Vol] 30.2 g/dL Low 30.5 - 36.0 g/dL [facility] MCV (RBC) [Entitic vol] 102.3 fL High 80.0 - 100.[address] [facility] Nucleated RBC (Bld) [#/Vol] NINF [facility] Platelet mean volume (Bld) [Entitic vol] 9.8 fL 9.0 - 12.[address] [facility] Platelets (Bld) [#/Vol] 158 10*3/uL [facility] RBC (Bld) [#/Vol] 3.11 10*6/uL Low 4.20 - 6.0 0 m/uL [facility] WBC (Bld) [#/Vol] 4.72 10*3/uL [facility] Comprehensive metabolic 2000 panelOrdered By: Haley Marie on 03-25-2024 Albumin [Mass/Vol] 3.7 g/dL Low 3.9 - 4.9 g/dL [facility] ALP [Catalytic activity/Vol] 109 U/L 38 - 113 U/L [facility] ALT [Catalytic activity/Vol] 15 U/L 10 - 54 U/L [facility] Anion gap [Moles/Vol] 12 mmol/L 8 - 15 mmol/L [facility] AST [Catalytic activity/Vol] 19 U/L 14 - 40 U/L [facility] Bilirubin [Mass/Vol] 0.3 mg/dL 0.2 - 1 .3 mg/dL [facility] Calcium [Mass/Vol] 8.6 mg/dL 8.5 - 10. 2 mg/dL [facility] Chloride [Moles/Vol] 113 mmol/L High 98 - 10 7 mmol/L [facility] CO2 [Moles/Vol] 16 mmol/L Low 22 - 30 mmol/L [facility] Creatinine [Mass/Vol] 2.48 mg/dL High 0.73 - 1.22 mg/dL [facility] GFR/1.73 sq M.predicted among non-blacks MDRD (S/P/Bld) [Vol rate/Area] 26 mL/min/{1.73_m2} Low - PINF [facility] Comment on above: Estimated Glomerular Filtration [...] [Mass/Vol] 99 mg/dL 74 - 99 mg/dL [facility] Comment on above: The [place] Diab[employer] s Association (ADA) provides guidance for [...] Standards of Medical Care in Diabetes 2016, [place] [employer]. Diabetes Care. 2016.39(Suppl 1). Interpretation and review of laboratory results Abnormal [facility] Potassium [Moles/Vol] 4.4 mmol/L 3.7 - 5.1 mmol/L [facility] Protein [Mass/Vol] 6.4 g/dL 6.3 - 8.0 g/dL [facility] Sodium [Moles/Vol] 141 mmol/L 136 - 144 mmol/L [facility] Urea nitrogen [Mass/Vol] 49 mg/dL High 9 - 24 mg/dL [facility] ALBUMIN/CREAT RATIO RND URon 08-14-2023 Albumin DL <= 20 mg/L (U) [Mass/Vol] 26.7 mg/L [facility] Albumin/Creatinine (U) [Mass ratio] 27 mg/g <30 mg/g [facility] Creatinine (U) [Mass/Vol] 98.9 mg/dL 20.0 - 300.0 mg/dL [facility] CBC W Auto Differential pane l (Bld)on 08-14-2023 Basophils (Bld) [#/Vol] 0.05 10*3/uL <0.11 k/uL [facility] Basophils/100 WBC (Bld) 0.9 % [facility] Differential cell count method Nom (Bld) Auto [facility] Eosinophils (Bld) [#/Vol] 0.44 10*3/uL <0.46 k/uL [facility] Eosinophils/100 WBC (Bld) 8.3 % [facility] Erythrocyte distribution width (RBC) [Ratio] 14.5 % 11.5 - 15.0 % [facility] Hematocrit (Bld) [Volume fraction] 38.6 % Low 39.0 - 51.0 % [facility] Hemoglobin (Bld) [Mass/Vol] 11.7 g/dL Low 13.0 - 17.0 g/dL [facility] Immature granulocytes (Bld) [#/Vol] <0.10 k/uL [facility] Immature granulocytes/100 WBC (Bld) 0.4 % [facility] Lymphocytes (Bld) [#/Vol] 1.18 10*3/uL 1.00 - 4.00 k/uL [facility] Lymphocytes/100 WBC (Bld) 22.1 % [facility] MCH (RBC) [Entitic mass] 31.3 pg 26.0 - 34.[address] [facility] MCHC (RBC) [Mass/Vol] 30.3 g/dL Low 30.5 - 36.0 g/dL [facility] MCV (RBC) [Entitic vol] 103.2 fL High 80.0 - 100.[address] [facility] Monocytes (Bld) [#/Vol] 0.42 10*3/uL <0.87 k/uL [facility] Monocytes/100 WBC (Bld) 7.9 % [facility] Neutrophils (Bld) [#/Vol] 3.22 10*3/uL 1.45 - 7.50 k/uL [facility] Neutrophils/100 WBC (Bld) 60.4 % [facility] Nucleated RBC (Bld) [#/Vol] <0.01 k/uL [facility] Nucleated RBC/100 WBC (Bld) [Ratio] 0.0 /[address] [facility] Platelet mean volume (Bld) [Entitic vol] 10.5 fL 9.0 - 12.[address] [facility] Platelets (Bld) [#/Vol] 144 10*3/uL Low 150 - 400 k/uL [facility] RBC (Bld) [#/Vol] 3.74 10*6/uL Low 4.20 - 6.0 0 m/uL [facility] WBC (Bld) [#/Vol] 5.33 10*3/uL 3.70 - 11.00 k/uL [facility] Comprehensive metabolic 2000 panelon 08-14-2023 Albumin [Mass/Vol] 4.1 g/dL 3.9 - 4.9 g/dL [facility] ALP [Catalytic activity/Vol] 111 U/L 38 - 113 U/L [facility] ALT [Catalytic activity/Vol] 21 U/L 10 - 54 U/L [facility] Anion gap [Moles/Vol] 11 mmol/L 9 - 18 mmol/L [facility] AST [Catalytic activity/Vol] 26 U/L 14 - 40 U/L [facility] Bilirubin [Mass/Vol] 0.5 mg/dL 0.2 - 1 .3 mg/dL [facility] Calcium [Mass/Vol] 8.8 mg/dL 8.5 - 10. 2 mg/dL [facility] Chloride [Moles/Vol] 106 mmol/L High 97 - 10 5 mmol/L [facility] CO2 [Moles/Vol] 24 mmol/L 22 - 30 mmol/L [facility] Creatinine [Mass/Vol] 2.30 mg/dL High 0.73 - 1.22 mg/dL [facility] Estimated Glomerular Filtration Rate 28 mL/min/1.73m Low >=60 mL/min/1.[address] [facility] Glucose [Mass/Vol] 113 mg/dL High 74 - 99 mg/dL [facility] Potassium [Moles/Vol] 4.6 mmol/L 3.7 - 5.1 mmol/L [facility] Protein [Mass/Vol] 7.0 g/dL 6.3 - 8.0 g/dL [facility] Sodium [Moles/Vol] 141 mmol/L 136 - 144 mmol/L [facility] Urea nitrogen [Mass/Vol] 28 mg/dL High 9 - 24 mg/dL [facility] HbA1c (Bld)on 08-14-2023 Average glucose Estimated from glycated hemoglobin (Bld) [Mass/Vol] 108 mg/dL [facility] HbA1c (Bld) [Mass fraction] 5.4 % 4.3 - 5.6 % [facility] Lipid 1996 panelon Cholesterol [Mass/Vol] 165 mg/dL <200 mg/dL [facility] Cholesterol in HDL [Mass/Vol] 44 mg/dL >39 mg/dL [facility] Cholesterol in LDL [Mass/Vol] 100 mg/dL High <100 mg/dL [facility] Cholesterol in LDL/Cholesterol in HDL [Mass ratio] 2.27 {ratio} <2.54 [facility] Cholesterol in VLDL [Mass/Vol] 21 mg/dL <30 mg/dL [facility] Cholesterol non HDL [Mass/Vol] 121 mg/dL <130 mg/dL [facility] Cholesterol.total/Julia sterol in HDL [Mass ratio] 3.75 {ratio} <5.10 [facility] Fasting Time [address] [facility] Triglyceride [Mass/Vol] 106 mg/dL <150 mg/dL [facility] INR FINGERSTICK B/Oon 2021 INR Coag (Bld) [Relative time] 1.9 (self reporting) [facility] INR FINGERSTICK B/Oon 2021 INR Coag (Bld) [Relative time] 2.[address] [facility] Quality Check No [facility] Vital Signs Date Time Vital Sign Value Performing Clinician Facility 03-07-2025 12:57-0400 Body height 177.[address] Guanakito Reno MD Work Phone: [facility] 03-07-2025 12:57-0400 Body mass index (BMI) [Ratio] 35.9 kg/m2 Dr. Guanakito Reno MD Work Phone: [facility] 03-07-2025 12:57-0400 Body weight 113.[address] Guanakito Reno MD Work Phone: [facility] 01-21-2025 15:33-0400 Body mass index (BMI) [Ratio] 37.02 kg/m2 Carolina Landeros APRN.AIR ROUTE TRAFFIC CONTROLLER Work Phone: [facility] 01-21-2025 15:33-0400 Body temperature 97.59 [degF] Carolina Landeros APRN.AIR ROUTE TRAFFIC CONTROLLER Work Phone: [facility] 01-21-2025 15:33-0400 Body weight 117.03 kg Carolina Suppan BULK PL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 Work Phone: [facility] 01-21-2025 15:33-0400 Diastolic blood pressure 60 mm[Hg] Carolina Suppan BULK PL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 Work Phone: [facility] 01-21-2025 15:33-0400 Heart rate 59 /min Carolina Suppan BULK PL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 Work Phone: [facility] 01-21-2025 15:33-0400 SaO2% (BldA) [Mass fraction] 97 % Carolina Suppan BULK PL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 Work Phone: [facility] 01-21-2025 15:33-0400 Systolic blood pressure 122 mm[Hg] Carolina Suppan BULK PL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 Work Phone: [facility] 08-06-2024 12:57-0400 Body height 177.8 cm Laura Iraheta MD Work Phone: [facility] Comment on above: patient reports 08-06-2024 12:57-0400 Body mass index (BMI) [Ratio] 34.44 kg/m2 Laura Iraheta MD Work Phone: [facility] 08-06-2024 12:57-0400 Body weight 108.86 kg Laura Iraehta MD Work Phone: [facility] 08-06-2024 12:57-0400 Diastolic blood pressure 68 mm[Hg] Laura Iraheta MD Work Phone: [facility] 08-06-2024 12:57-0400 Heart rate 61 /min Laura Iraheta MD Work Phone: [facility] 08-06-2024 12:57-0400 SaO2% (BldA) [Mass fraction] 99 % Laura Iraheta MD Work Phone: [facility] 08-06-2024 12:57-0400 Systolic blood pressure 128 mm[Hg] Laura Iraheta MD Work Phone: [facility] 07-12-2024 11:22-0400 Body height 177.8 cm Guanakito Reno MD Work Phone: [facility] 07-12-2024 11:22-0400 Body mass index (BMI) [Ratio] 34.55 kg/m2 Guanakito Reno MD Work Phone: [facility] 07-12-2024 11:22-0400 Body weight 109.23 kg Guanakito Reno MD Work Phone: [facility] 07-12-2024 11:22-0400 Diastolic blood pressure 62 mm[Hg] Guanakito Reno MD Work Phone: [facility] 07-12-2024 11:22-0400 Heart rate 59 /min Guanakito Reno MD Work Phone: [facility] 07-12-2024 11:22-0400 Systolic blood pressure 114 mm[Hg] Guanakito Reno MD Work Phone: [facility] 07-10-2024 08:11-0400 Body height 177.8 cm Cal Thacker MD Work Phone: [facility] Comment on above: Patient reports 07-10-2024 08:11-0400 Body mass index (BMI) [Ratio] 34.49 kg/m2 Cal Thacker MD Work Phone: [facility] 07-10-2024 08:11-0400 Body weight 109.05 kg Cal Thacker MD Work Phone: [facility] 07-10-2024 08:11-0400 Diastolic blood pressure 70 mm[Hg] Cal Thacker MD Work Phone: [facility] 07-10-2024 08:11-0400 Heart rate 94 /min Cal Thacker MD Work Phone: [facility] 07-10-2024 08:11-0400 SaO2% (BldA) [Mass fraction] 94 % Cal Thacker MD Work Phone: [facility] 07-10-2024 08:11-0400 Systolic blood pressure 120 mm[Hg] Cal Thacker MD Work Phone: [facility] 07-10-2024 08:08-0400 Body height 177.8 cm Pam Reddy MD Work Phone: [facility] Comment on above: Patient reports 07-10-2024 08:08-0400 Body mass index (BMI) [Ratio] 34.49 kg/m2 Pam Reddy MD Work Phone: [facility] 07-10-2024 08:08-0400 Body weight 109.05 kg Pam Reddy MD Work Phone: [facility] Comment on above: Fully clothed with shoes on. 07-10-2024 08:08-0400 Diastolic blood pressure 70 mm[Hg] Pam Reddy MD Work Phone: [facility] 07-10-2024 08:08-0400 Heart rate 94 /min Pam Reddy MD Work Phone: [facility] 07-10-2024 08:08-0400 SaO2% (BldA) [Mass fraction] 94 % Pam Reddy MD Work Phone: [facility] 07-10-2024 08:08-0400 Systolic blood pressure 120 mm[Hg] Pam Reddy MD Work Phone: [facility] 06-06-2024 11:31-0400 Body mass index (BMI) [Ratio] 36.03 kg/m2 Carolina Suppan BULK PL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 Work Phone: [facility] 06-06-2024 11:31-0400 Body weight 110.68 kg Carolina Suppan BULK PL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 Work Phone: [facility] 06-06-2024 11:31-0400 Diastolic blood pressure 68 mm[Hg] Carolina Suppan BULK PL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 Work Phone: [facility] 06-06-2024 11:31-0400 Heart rate 71 /min Carolina Suppan BULK PL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 Work Phone: [facility] 06-06-2024 11:31-0400 Respiratory rate 18 /min Carolina Suppan BULK PL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 Work Phone: [facility] 06-06-2024 11:31-0400 SaO2% (BldA) [Mass fraction] 99 % Carolina Suppan BULK PL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 Work Phone: [facility] 06-06-2024 11:31-0400 Systolic blood pressure 144 mm[Hg] Carolina Suppan BULK PL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 Work Phone: [facility] 06-05-2024 16:41-0400 Body mass index (BMI) [Ratio] 36.04 kg/m2 Valerie Gruber BULK PL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 Work Phone: [facility] 06-05-2024 16:41-0400 Body temperature 96.6 [degF] Valerie Gruber BULK PL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 Work Phone: [facility] 06-05-2024 16:41-0400 Body weight 110.7 kg Valerie Gruber BULK PL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 Work Phone: [facility] 06-05-2024 16:41-0400 Diastolic blood pressure 70 mm[Hg] Valerie Gruber BULK PL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 Work Phone: [facility] 06-05-2024 16:41-0400 Heart rate 75 /min Valerie Gruber BULK PL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 Work Phone: [facility] 06-05-2024 16:41-0400 Respiratory rate 19 /min Valerie Gruber BULK PL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 Work Phone: [facility] 06-05-2024 16:41-0400 SaO2% (BldA) [Mass fraction] 97 % Valerie Gruber BULK PL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 Work Phone: [facility] 06-05-2024 16:41-0400 Systolic blood pressure 140 mm[Hg] Valerie Gruber BULK PL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 Work Phone: [facility] 05-06-2024 17:38-0400 Body height 175.3 cm Corrina Lennon BULK PL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 Work Phone: [facility] 05-06-2024 17:38-0400 Body mass index (BMI) [Ratio] 37.95 kg/m2 Corrina Haagen BULK PL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 Work Phone: [facility] 05-06-2024 17:38-0400 Body weight 116.57 kg Corrina Haagen BULK PL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 Work Phone: [facility] 05-06-2024 17:38-0400 Diastolic blood pressure 58 mm[Hg] Corrina Haagen BULK PL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 Work Phone: [facility] 05-06-2024 17:38-0400 Heart rate 62 /min Corrina Haagen BULK PL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 Work Phone: [facility] 05-06-2024 17:38-0400 Respiratory rate 14 /min Corrina Haagen BULK PL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 Work Phone: [facility] 05-06-2024 17:38-0400 SaO2% (BldA) [Mass fraction] 89 % Corrina Haagen BULK PL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 Work Phone: [facility] 05-06-2024 17:38-0400 Systolic blood pressure 122 mm[Hg] Corrina Haagen BULK PL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 Work Phone: [facility] 04-08-2024 15:17-0400 Body mass index (BMI) [Ratio] 37.63 kg/m2 Corrina Haagen BULK PL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 Work Phone: [facility] 04-08-2024 15:17-0400 Body weight 115.58 kg Corrina Haagen BULK PL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 Work Phone: [facility] 04-08-2024 14:55-0400 Diastolic blood pressure 58 mm[Hg] Corrina Haagen BULK PL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 Work Phone: [facility] 04-08-2024 14:55-0400 Heart rate 72 /min Corrina Haagen BULK PL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 Work Phone: [facility] 04-08-2024 14:55-0400 Respiratory rate 16 /min Corrina Haagen BULK PL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 Work Phone: [facility] 04-08-2024 14:55-0400 Systolic blood pressure 102 mm[Hg] Corrina Lennon ÁLVARO.AIR ROUTE TRAFFIC CONTROLLER Work Phone: [facility] 03-26-2024 16:33-0400 Body height 175.3 cm Guanakito Reno MD Work Phone: [facility] 03-26-2024 16:33-0400 Body mass index (BMI) [Ratio] 37.07 kg/m2 Guanakito Reno MD Work Phone: [facility] 03-26-2024 16:33-0400 Body weight 113.85 kg Guanakito Reno MD Work Phone: [facility] 03-26-2024 16:33-0400 Diastolic blood pressure 46 mm[Hg] Guanakito Reno MD Work Phone: [facility] 03-26-2024 16:33-0400 Heart rate 86 /min Guanakito Reno MD Work Phone: [facility] 03-26-2024 16:33-0400 SaO2% (BldA) [Mass fraction] 98 % Guanakito Reno MD Work Phone: [facility] 03-26-2024 16:33-0400 Systolic blood pressure 98 mm[Hg] Guanakito Reno MD Work Phone: [facility] 03-25-2024 14:52-0400 Body mass index (BMI) [Ratio] 37.21 kg/m2 Pam Reddy MD Work Phone: [facility] 03-25-2024 14:52-0400 Body weight 114.31 kg Pam Reddy MD Work Phone: [facility] 03-25-2024 14:52-0400 Diastolic blood pressure 69 mm[Hg] Pam Reddy MD Work Phone: [facility] 03-25-2024 14:52-0400 Heart rate 66 /min Pam Reddy MD Work Phone: [facility] 03-25-2024 14:52-0400 SaO2% (BldA) [Mass fraction] 96 % Pam Reddy MD Work Phone: [facility] 03-25-2024 14:52-0400 Systolic blood pressure 116 mm[Hg] Pam Reddy MD Work Phone: [facility] 12-22-2023 14:55-0500 Body temperature 97.81 [degF] Carolina Suppan BULK PLANT SUPERVISOR.NETWORKS SOFTWARE CONSULTANT Work Phone: [facility] 12-22-2023 14:55-0500 Diastolic blood pressure 60 mm[Hg] Carolina Suppan BULK PLANT SUPERVISOR.NETWORKS SOFTWARE CONSULTANT Work Phone: [facility] 12-22-2023 14:55-0500 Heart rate 76 /min Carolina Suppan BULK PLANT SUPERVISOR.NETWORKS SOFTWARE CONSULTANT Work Phone: [facility] 12-22-2023 14:55-0500 Respiratory rate 18 /min Carolina Suppan BULK PLANT SUPERVISOR.NETWORKS SOFTWARE CONSULTANT Work Phone: [facility] 12-22-2023 14:55-0500 SaO2% (BldA) [Mass fraction] 99 % Carolina Suppan BULK PLANT SUPERVISOR.NETWORKS SOFTWARE CONSULTANT Work Phone: [facility] 12-22-2023 14:55-0500 Systolic blood pressure 122 mm[Hg] Carolina Suppan BULK PLANT SUPERVISOR.NETWORKS SOFTWARE CONSULTANT Work Phone: [facility] 08-14-2023 13:24-0400 Body height 175.3 cm Guanakito Reno MD Work Phone: [facility] 08-14-2023 13:24-0400 Body weight 120.75 kg Guanakito Reno MD Work Phone: [facility] 08-14-2023 13:24-0400 Diastolic blood pressure 68 mm[Hg] Guanakito Reno MD Work Phone: [facility] 08-14-2023 13:24-0400 Heart rate 59 /min Guanakito Reno MD Work [facility] [facility] 08-14-2023 13:24-0400 SaO2% (BldA) [Mass fraction] 99 % Guanakito Reno MD Work Phone: [facility] 08-14-2023 13:24-0400 Systolic blood pressure 120 mm[Hg] Guanakito Reno MD Work Phone: [facility] 02-13-2023 14:39-0400 Body weight 119.75 kg Pam Reddy MD Work Phone: [facility] 02-13-2023 14:39-0400 Diastolic blood pressure 60 mm[Hg] Pam Reddy MD Work Phone: [facility] 02-13-2023 14:39-0400 Heart rate 78 /min Pam Reddy MD Work Phone: [facility] 02-13-2023 14:39-0400 SaO2% (BldA) [Mass fraction] 96 % Pam Reddy MD Work Phone: [facility] 02-13-2023 14:39-0400 Systolic blood pressure 110 mm[Hg] Pam Reddy MD Work Phone: [facility] 02-06-2023 15:29-0400 Body weight 118.39 kg Guanakito Reno MD Work Phone: [facility] 02-06-2023 15:29-0400 Diastolic blood pressure 58 mm[Hg] Guanakito Reno MD Work Phone: [facility] 02-06-2023 15:29-0400 Heart rate 76 /min Guanakito Reno MD Work Phone: [facility] 02-06-2023 15:29-0400 Respiratory rate 16 /min Guanakito Reno MD Work Phone: [facility] 02-06-2023 15:29-0400 SaO2% (BldA) [Mass fraction] 94 % Guanakito Reno MD Work Phone: [facility] 02-06-2023 15:29-0400 Systolic blood pressure 122 mm[Hg] Guanakito Reno MD Work Phone: [facility] 10-04-2022 10:38-0500 Body height 175.3 cm Alondra Prescott DO Work Phone: [facility] 10-04-2022 10:38-0500 Body weight 117.03 kg Alondra Prescott DO Work Phone: [facility] 10-04-2022 10:38-0500 Diastolic blood pressure 66 mm[Hg] Alondra Prescott DO Work Phone: [facility] 10-04-2022 10:38-0500 Heart rate 57 /min Alondra Prescott DO Work Phone: [facility] 10-04-2022 10:38-0500 SaO2% (BldA) [Mass fraction] 100 % Alondra Prescott DO Work Phone: [facility] 10-04-2022 10:38-0500 Systolic blood pressure 122 mm[Hg] Alondra Prescott DO Work Phone: [facility] 08-15-2022 14:50-0400 Body height 175.3 cm Pam Reddy MD Work Phone: [facility] 08-15-2022 14:50-0400 Body weight 119.3 kg Pam Reddy MD Work Phone: [facility] 08-15-2022 14:50-0400 Diastolic blood pressure 62 mm[Hg] Pam Reddy MD Work Phone: [facility] 08-15-2022 14:50-0400 Heart rate 58 /min Pam Reddy MD Work Phone: [facility] 08-15-2022 14:50-0400 Respiratory rate 18 /min Pam Reddy MD Work Phone: [facility] 08-15-2022 14:50-0400 SaO2% (BldA) [Mass fraction] 98 % Pam Reddy MD Work Phone: [facility] 08-15-2022 14:50-0400 Systolic blood pressure 114 mm[Hg] Pam Reddy MD Work Phone: [facility] 01-19-2022 15:14-0400 Body weight 121.11 kg Guanakito Reno MD Work Phone: [facility] 01-19-2022 15:14-0400 Diastolic blood pressure 68 mm[Hg] Guanakito Reno MD Work Phone: [facility] 01-19-2022 15:14-0400 Heart rate 60 /min Guanakito Reno MD Work Phone: [facility] 01-19-2022 15:14-0400 Systolic blood pressure 124 mm[Hg] Guanakito Reno MD Work Phone: [facility] Encounters Encounter Date Encounter Type Care Provider Facility Start: 06-24-2025 ambulatory Josafat ORTEZ Facil ity:[facility] Start: 06-17-2025 ambulatory Josafat ORTEZ Facil ity:[facility] Start: 06-12-2025 ambulatory Josafat ORTEZ Facil ity:[facility] Start: 06-10-2025 ambulatory Biankabrice ORTEZ Facili ty:[facility] Start: 06-03-2025 ambulatory Josafat ORTEZ Facil ity:[facility] Start: 06-03-[address] Josafat juarez MD -[facility] Start: 05-27-2025 ambulatory Josafat ORTEZ Facil ity:[facility] Start: 05-27-[address] Josafat juarez MD -[facility] Start: 05-20-2025 End: 05-20-[address] Guanakito Reno MD Work Phone: -[facility] Start: 05-20-2025 End: 05-20-[address] Josafat Simon MD -[facility] Start: 05-20-2025 End: 05-20-2025 ambulatory Josafat ORTEZ Facility:[facility] Start: 05-15-2025 ambulatory Josafat ORTEZ Facil ity:[facility] Start: 05-15-[address] Josafat juarez MD -[facility] Start: 05-13-2025 ambulatory Josafat ORTEZ Facil ity:[facility] Start: 05-13-[address] Josafat juarez MD -[facility] Start: 05-08-2025 ambulatory Josafat ORTEZ Facil ity:[facility] Start: 05-08-[address] Josafat juarez MD -[facility] Start: 05-06-2025 ambulatory Josafat ORTEZ Facil ity:[facility] Start: 05-06-[address] Josafat juarez MD -[facility] Start: 05-02-2025 End: 05-02-[address] Burt Zamora MD -[facility] Start: 05-02-2025 End: 05-02-[address] Guanakito Reno MD Work Phone: -[facility] Start: 05-01-2025 ambulatory Josafat ORTEZ Facil ity:[facility] Start: 05-01-[address] Josafat juarez MD -[facility] Start: 04-29-2025 ambulatory Josafat ORTEZ Facil ity:[facility] Start: 04-29-[address] Josafat juarez MD -[facility] Start: 04-24-2025 ambulatory Josafat ORTEZ Facil ity:[facility] Start: 04-24-[address] Josafat juarez MD -[facility] Start: 04-17-2025 ambulatory Bianka Contrerasi ty:[facility] Start: 04-17-[address] Bianka Gonzalez MD -[facility] Start: 04-15-2025 End: 04-15-2025 Telephone encounter Twin Cole [facility]ulatory Telemanagement Comment on above: Anticoagulation Tele phone Fu (Home INR result) Start: 04-14-2025 End: 04-14-2025 Telephone encounter Guanakito Reno MD Work Phone: [facility] [place] Comment on above: Patient Question Start: 04-14-2025 ambulatory Josafat García Facility :[facility] Start: 04-14-[address] Josafat García MD -Physical Therapy Work Phone: Start: 04-08-2025 End: 04-08-2025 Refill Carolina Landeros BULK PL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 Work Phone: Family [facility] [place] Comment on above: Refill Request Start: 03-28-2025 End: 03-28-2025 Telephone encounter Guanakito Reno MD Work Phone: [facility] [place] Comment on above: Faxed to [facility] Start: 03-24-2025 End: 03-24-2025 Telephone encounter Alejandro Molina [facility]ulatory Telemanagement Comment on above: Anticoagulation Tele phone Fu (Home INR Result ) Start: 03-07-2025 End: 03-07-[address] Josafat García MD -[facility] Work Phone: Start: 03-07-2025 End: 03-07-2025 ambulatory Josafat García Facility:[facility] Start: 03-06-2025 End: 03-06-2025 ambulatory CAROLINA LANDEROS Facility:[facility] Start: 03-05-2025 End: 03-06-2025 Emergency department patient visit KEDAR HERNANDEZ Facility:[facility] Start: 02-20-2025 End: 02-20-2025 Telephone encounter Jimmy Carrizales [facility] Ambulatory Telemanagement Comment on above: Anticoagulation Tele phone Fu (Home INR) Start: 01-31-2025 End: 01-31-2025 Telephone encounter Kamran Ayon [facility]ulatory Telemanagement Comment on above: Anticoagulation Tele phone Fu (INR Home Test Result) Start: 01-23-2025 End: 03-25-2025 Follow-up encounter Carolina Landeros BULK PL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 Work Phone: [facility] [place] Start: 01-21-2025 End: 01-21-2025 ambulatory CAROLINA LANDEROS Facility:[facility] Start: 01-21-2025 End: 01-21-2025 Office outpatient visit 25 minutes Carolina Landeros BULK PL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 Work Phone: [facility] [place] Comment on above: Hyperlipidemia, mixe [...] (HCC); Chronic renal disease, stage IV (HCC); senior care (current) use of anticoagulants; Obesity, Class II, BMI 35-39.9; Viral conjunctivitis; Seasonal allergic rhinitis, unspecified trigger; Bilateral impacted cerumen Start: 01-08-2025 End: 01-15-2025 Telephone encounter Ruthie Cuevas [facility]ulatory Telemanagement Comment on above: Anticoagulation Foll ow Up (Home INR result ) Start: 01-07-2025 End: 01-08-2025 Refill Corrina Lennon APRN.CNP Work Phone: [facility] Comment on above: Refill Request Start: 12-30-2024 End: 12-30-2024 Telephone encounter Twin Cole [facility]ulatory Telemanagement Comment on above: Anticoagulation Tele phone Fu (Home INR result) Start: 12-11-2024 End: 12-11-2024 Telephone encounter Jimmy Carrizales [facility]ulatory Telemanagement Comment on above: Anticoagulation Tele phone Fu (Home INR) Start: 11-26-2024 End: 11-26-2024 Telephone encounter Twin Cole [facility] Telemanagement Comment on above: Anticoagulation Tele phone Fu (Home INR result) Start: 10-28-2024 End: 10-28-2024 Telephone encounter Alejandro Molina [facility] Telemanagement Comment on above: Anticoagulation Tele phone Fu (Home INR Result ) Start: 10-21-2024 End: 10-21-2024 Telephone encounter Guanakito Reno MD Work Phone: [facility] Comment on above: Patient Update; Rozina ent Question Start: 10-01-2024 End: 10-01-2024 Telephone encounter Twin Cole [facility] Tele[facility] Comment on above: Anticoagulation Tele phone Fu (Home INR result) Start: 08-26-2024 End: 08-26-2024 Telephone encounter Alejandro Molina [facility] Comment on above: Anticoagulation Tele phone Fu (Home INR Result ) Start: 08-19-2024 End: 08-19-2024 ambulatory Melania Galindo RN Cold Saw Operator Management Comment on above: QI SMITH RN [...] Start: 08-06-2024 End: 08-07-2024 ambulatory LAURA IRAHETA Facility:[facility] Start: 07-30-2024 End: 07-30-2024 ambulatory Josselyn Mayer APRN.AIR ROUTE TRAFFIC CONTROLLER Work Phone: [facility] [place] Start: 07-30-2024 End: 08-01-2024 Telephone encounter Josselyn Mayer APRN.AIR ROUTE TRAFFIC CONTROLLER Work Phone: [facility] [place] Comment on above: Lime Kiln Worker - O ther Start: 07-25-2024 End: 07-26-2024 Telephone encounter Jimmy Carrizales [facility]ulatory Telemanagement Comment on above: Anticoagulation (Pat ient update) Start: 07-23-2024 End: 07-23-2024 ambulatory PAM REDDY Facility:[facility] Start: 07-23-2024 End: 07-23-[address] [facility] Start: 07-23-2024 End: 07-23-2024 Subsequent hospital visit by physician [facility] 1 (I-Stat) [facility] Comment on above: Nonrheumatic aortic valve stenosis [I35.0] Start: 07-22-2024 End: 07-22-2024 ambulatory VALERIE PIÑA Facility:[facility] Start: 07-15-2024 End: 07-15-2024 Orders Only Valerie Piña BULK PL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 Work Phone: [facility] Comment on above: Paroxysmal atrial fi brillation (HCC) (Primary Dx); Aortic valve stenosis, etiology of cardiac valve disease unspecified Nonrheumatic aortic valve stenosis (Primary Dx); Paroxysmal atrial fibrillation (HCC) Patient Update Results Start: 07-12-2024 End: 07-12-2024 Telephone encounter Guanakito Reno MD Work Phone: [facility] [place] Start: 07-12-2024 End: 07-12-2024 ambulatory JOSSELYN MAYER Facility:[facility] Start: 07-12-2024 End: 07-15-2024 Patient encounter procedure Guanakito Reno MD Work Phone: [facility] [place] Comment on above: Essential hypertensi on (Primary [...] disease, stage IV (HCC); Mixed dementia (HCC); 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 GENERAL CARDIAC TESTING Comment on above: Nonrheumatic aortic valve stenosis [I35.0] Start: 07-10-2024 End: 07-10-2024 Patient encounter procedure Cal Thacker MD Work Phone: [facility] Comment on above: [...] encounter status Pam Reddy MD Work Phone: [facility] Work Phone: Start: 07-10-2024 Encounter for preprocedural cardiovascular examination PAM REDDY [facility] Start: 07-10-2024 End: 07-10-2024 ambulatory GUANAKITO RENO Facility:[facility] Start: 07-05-2024 End: 07-05-2024 Telephone encounter Annamarie Garcia [facility] Comment on above: Anticoagulation Tele phone Fu Start: 2024 End: 2024 Telephone encounter Guanakito Reno MD Work Phone: Pulmonology [facility] Start: 06-18-2024 End: 06-18-2024 Telephone encounter Jimmy Carrizales [facility]ulatory Telemanagement Comment on above: Anticoagulation Tele phone Fu (Home INR) Start: 06-06-2024 End: 06-06-2024 ambulatory CAROLINA LANDEROS Facility:[facility] Start: 06-06-2024 End: 06-06-2024 Office outpatient visit 15 minutes Carolina Landeros APRN.AIR ROUTE TRAFFIC CONTROLLER Work Phone: [facility] [place] Comment on above: Aortic valve stenosi s, etiology of cardiac valve disease unspecified (Primary Dx); Hypertensive kidney disease with stage 3b chronic kidney disease (HCC); Paroxysmal atrial fibrillation (HCC); Benign prostatic hyperplasia without lower urinary tract symptoms; Anemia, unspecified type Start: 06-05-2024 End: 06-05-2024 ambulatory GUANAKITO RENO Facility:[facility] Start: 06-05-2024 End: 06-05-2024 Patient encounter procedure Valerie Gruber APRN.AIR ROUTE TRAFFIC CONTROLLER Work Phone: [facility] Comment on above: Blood pressure check (Primary Dx); Leg swelling Start: 06-05-2024 End: 06-05-2024 Patient encounter status Valerie Gruber APRN.CNP Work Phone: [facility] Work Phone: Start: 06-03-2024 End: 06-05-2024 ambulatory Gunaakito Reno MD Work Phone: [facility] [place] Comment on above: Water pill/ kidney d r # Start: 05-20-2024 Telephone encounter Josselyn Mayer BULK PL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 Work Phone: [facility] Cardiology [place] Comment on above: Lime Kiln Worker - O ther Results Start: 05-17-2024 Telephone encounter Dorothy Josiane [facility] Comment on above: Anticoagulation Tele phone Fu Start: 05-06-2024 End: 05-06-2024 Office outpatient visit 15 minutes Corrina Lennon APRN.AIR ROUTE TRAFFIC CONTROLLER Work Phone: [facility] [place] Comment on above: Essential hypertensi on (Primary Dx); Hypertensive kidney disease with stage 3 chronic kidney disease, unspecified whether stage 3a or 3b CKD (HCC); Anemia, unspecified type Start: 05-02-2024 End: 05-02-2024 Subsequent hospital visit by physician [facility] Work Phone: Radiology Comment on above: Renal insufficiency [N28.9] Start: 04-24-2024 Telephone encounter [facility]ulatory Tele[facility] Comment on above: Anticoagulation Tele phone Fu (Home INR) Start: 04-19-2024 Telephone encounter Guanakito Reno MD Work Phone: [facility] [place] Comment on above: Results Start: 04-08-2024 End: 04-08-2024 Office outpatient visit 25 minutes Corrina Lennon APRN.AIR ROUTE TRAFFIC CONTROLLER Work Phone: [facility] [place] Comment on [...] Telephone encounter Guanakito Reno MD Work Phone: [facility] Comment on above: Results Start: 04-04-2024 Telephone encounter Jimmy Carrizales [facility] Ambulatory Telemanagement Comment on above: Anticoagulation Tele phone Fu (Home INR) Start: 03-26-2024 End: 03-26-2024 Patient encounter procedure Guanakito Reno MD Work Phone: [facility] Comment on above: Essential hypertensi on (Primary [...] or 3b CKD (HCC); Mixed dementia (HCC); 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; Obesity, Class II, [...] payor) Start: 03-07-2024 Telephone encounter Jimmy Carrizales [facility] Telemanagement Comment on above: Anticoagulation Tele phone Fu Start: 02-14-2024 Telephone encounter [facility] Ambulatory Tele[facility] Comment on above: Anticoagulation Tele phone Fu (Home INR results ) Start: 01-17-2024 Refill Guanakito Reno MD Work Phone: [facility] Comment on above: Refill Request requesting medicatio n on list Start: 01-15-2024 Telephone encounter [facility] Ambulatory Tele[facility] Comment on above: Anticoagulation Tele phone Fu (Home INR Result ) Start: 12-22-2023 End: 12-22-2023 Office outpatient visit 15 minutes Carolina Landeros APRN.NETWORKS SOFTWARE CONSULTANT Work Phone: [facility] [place] Comment on above: Abrasion of arm, lef t, initial encounter (Primary Dx); Chronic insomnia Start: 12-21-2023 ambulatory Guanakito Reno MD Work Phone: [facility] [place] Comment on above: skin laceration Start: 12-21-2023 Telephone encounter Jimmy Carrizales [facility]ulatory Telemanagement Comment on [...] payer) Start: 08-22-2023 Telephone encounter Twin Cole [facility] Ambulatory Telemanagement Comment on above: Anticoagulation Tele phone Fu (Home INR result) Start: 08-16-2023 Telephone encounter Guanakito Reno MD Work Phone: [facility] [place] Comment on above: Results Start: 08-15-2023 Telephone encounter Guanakito Reno MD Work Phone: [facility] [place] Comment on above: Results Start: 08-14-2023 End: 08-14-2023 Patient encounter procedure Guanakito Reno MD Work Phone: [facility] [place] Comment on above: Onychomycosis (Prima ry Dx); [...] 07-04-2023 Refill Guanakito Reno MD Work Phone: [facility] [place] Comment on above: Refill Request Start: 2023 ambulatory Lizette Cardenas RN [facility] Comment on above: QI SMITH RN ( Medication Adherence review per request of payer) Start: 05-22-2023 Telephone encounter [facility] Comment on above: Anticoagulation Tele phone Fu (Home INR Result ) Start: 04-24-2023 Telephone encounter [facility] Comment on above: Anticoagulation Tele phone Fu (Home INR Result ) Start: 04-19-2023 Refill Guanakito Reno MD Work Phone: [facility] [place] Comment on above: Refill Request Start: 03-28-2023 Telephone encounter [facility] Comment on above: Anticoagulation Tele phone Fu (Home INR result) Start: 02-13-2023 End: 02-13-2023 Patient encounter procedure Pam Reddy MD Work Phone: Cardiology Comment on above: Syncope, unspecified syncope type (Primary Dx); Aortic valve disorder Start: 02-06-2023 End: 02-06-2023 Patient encounter procedure Guanakito Reno MD Work Phone: [facility] [place] Comment on above: Essential hypertensi [...] 01-16-2023 Refill Guanakito Reno MD Work Phone: [facility] Comment on above: Refill Request Start: 01-09-2023 Telephone encounter [facility] Tele[facility] Comment on above: Anticoagulation (INR Result) Start: 12-19-2022 Telephone encounter Alejandro Molina [facility] Comment on above: Anticoagulation Tele phone Fu (Home INR Result ) Start: 11-28-2022 Telephone encounter Alejandro Molina [facility] Comment on above: Anticoagulation Tele phone Fu (Home INR Result ) Start: 11-18-2022 Telephone encounter Kamran Ayon [facility] Ambulatory Telemanagement Comment on above: [...] 09-23-2022 Refill Guanakito Reno MD Work Phone: [facility] Comment on above: Orders; Refill Reque st Start: 09-21-2022 Telephone encounter [facility] Tele[facility] Comment on above: Anticoagulation Tele phone Fu (Home INR result expected) Start: 09-07-2022 ambulatory Lizette Cardenas RN [facility] [place] Comment on above: QI SMITH RN ( [...] 07-22-2022 Refill Guanakito Reno MD Work Phone: [facility] Comment on above: Refill Request Start: 2022 Telephone encounter [facility] Comment on above: Anticoagulation (INR result ) Start: 06-14-2022 ambulatory Nirmala Lim [place] [facility] [place] Comment on above: Population Health Na vigation Outreach ([facility] care gaps) Start: 06-06-2022 Telephone encounter Alejandro Molina R [facility] Ambulatory Telemanagement Comment on above: Anticoagulation (Gabrielle e INR) Start: 05-19-2022 Refill Guanakito Reno MD Work Phone: [facility] Comment on above: Refill Request Start: 05-16-2022 Telephone encounter Alejandro Molina R [facility] Ambulatory Telemanagement Comment on above: Anticoagulation Tele phone Fu (Home INR Result) Start: 04-25-2022 Telephone encounter Val Oliver [facility] Comment on above: Anticoagulation [...] encounter procedure Guanakito Reno MD Work Phone: [facility] Comment on above: Essential hypertensi on (Primary [...] above: Anticoagulation Tele phone Fu Start: 06-07-2018 [facility] Facility :[facility] Start: 11-24-2017 End: 11-24-2017 Ambulatory [facility] Facility:[facility] Procedures Date Procedure Procedure Detail Performing Clinician Start: 05-02-2025 Plain X-ray of shoulder Dr. Guanakito Reno MD Work Phone: Start: 07-12-2024 [employer] COVI D-19 VACCINE AGE 12+ YR (COMIRNATY) [...] Velasquez with bovine patch angioplasty, 04/17/2014 @ [facility] History of carotid endarterectomy History of carotid endarterectomy Guanakito Reno MD Work Phone: History of carotid endarterectomy History of carotid endarterectomy Laura Iraheta MD Work Phone: Plan of Treatment Date Care Activity Detail Author Start: 04-22-[address] [facility] Start: 01-21-2026 Diabetic foot examination Diabetic Foot Exam [facility] Start: 01-21-2026 Hepatitis B surface antibody level LDL Cholesterol [facility] Start: 08-06-2025 End: 09-05-2025 US Carotid arteries - bilateral US CAROTID BILATERAL Radiology Routine Bilateral carotid artery stenosis History of carotid endarterectomy Expected: 08/06/2025 (Approximate), Expires: 09/05/2025 [facility] Work Phone: Comment on above: Expected: 08/06/2025 (Approximate), Expi res: 09/05/2025 Start: 07-23-2025 End: 07-23-2025 Patient encounter procedure 07/23/2025 3:20 PM EDT Office Visit [facility] [place] [address] [place] [address] Guanakito Reno MD [address] [place] [address] 6 month exam [facility] [place] Comment on above: 6 month exam Start: 07-23-2025 Hemoglobin A1c measurement HbA1C [facility] Start: 07-12-2025 Covid-19 Vaccine ( season) Covid-19 Vaccine () [facility] Comment on above: Postponed from 01/09/2025 (Declined at t his time) Start: 07-12-2025 Hepatitis B surface antibody level LDL Cholesterol [facility] Start: 06-16-2025 Influenza vaccination [facility] Start: 05-06-2025 Annual PCP Team Chronic Disease Visit Annual PCP Team Chronic Disease Visit [facility] Start: 05-06-2025 BP Controlled (<130/80) BP Controlled (<130/80) [facility] in Start: 05-02-2025 Plain X-ray of shoulder Shoulder min 2 Views [facility] Start: 05-02-2025 XR Shoulder GE 2 Views [facility] Start: 04-19-2025 Complete blood count Hemoglobin/Hematocrit [facility] Start: 04-19-2025 Creatinine measurement Serum Creatinine [facility] Start: 04-08-2025 Annual PCP Team Chronic Disease Visit Annual PCP Team Chronic Disease Visit [facility] Start: 04-08-2025 BP Controlled (<130/80) BP Controlled (<130/80) [facility] in Start: 04-04-2025 Complete blood count Hemoglobin/Hematocrit [facility] Start: 04-04-2025 Creatinine measurement Serum Creatinine [facility] Start: 03-26-2025 Annual PCP Team Chronic Disease Visit Annual PCP Team Chronic Disease Visit [facility] Start: 03-26-2025 BP Controlled (<130/80) BP Controlled (<130/80) [facility] in Start: 03-26-2025 Covid-19 Vaccine () Covid-19 Vaccine () [facility] Comment on above: Postponed from 12/14/2023 (Declined at t his time) Start: 03-26-2025 Shingrix Vaccine (1 of 2) Shingrix Vaccine (1 of 2) [facility] Comment on above: Postponed from 1993 (Declined at t his time) Start: 03-25-2025 BP Controlled (<130/80) BP Controlled (<130/80) [facility]ic Start: 03-25-2025 Complete blood count Hemoglobin/Hematocrit [facility] Start: 03-25-2025 Creatinine measurement Serum Creatinine [facility] Start: 01-21-2025 End: 01-21-2025 Patient encounter procedure 01/21/2025 3:40 PM EDT Office Visit [facility] [address] [place], [place] [phone] Carolina Landeros, [employer]K [employer]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 [address] [place], [place] [id number] 6 month follow up [facility] Comment on above: 6 month follow up Start: 01-21-2025 End: 04-22-2025 CBC W Auto Differential panel - Blood [facility] Comment on above: Expected: 01/21/2025, Expires: Start: 01-21-2025 End: 04-22-2025 Cobalamin (Vitamin B12) [Mass/volume] in Serum or Plasma [facility] Comment on above: Expected: 01/21/2025, Expires: Start: 01-21-2025 End: 04-22-2025 Comprehensive metabolic 2000 panel - Serum or Plasma [facility] Work Phone: Comment on above: Expected: 01/21/2025, Expires: Start: 01-21-2025 End: 04-22-2025 Hemoglobin A1c in Blood [facility] Comment on above: Expected: 01/21/2025, Expires: Start: 01-21-2025 End: 04-22-2025 LIPID PANEL, NONFASTING [facility] Comment on above: Expected: 01/21/2025, Expires: Start: 01-21-2025 End: 04-22-2025 Magnesium [Mass/volume] in Serum or Plasma [facility] Comment on above: Expected: 01/21/2025, Expires: Start: 01-13-2025 End: 01-13-2025 Patient encounter procedure 01/13/2025 10:40 AM EDT Office Visit [facility] [address] [place] [id number] Guanakito Reno MD [address] [place] [place] [id number] 6 month follow up [facility] Comment on above: 6 month follow up Start: 01-09-2025 Hemoglobin A1c measurement HbA1C [facility] Start: 12-21-2024 BP Controlled (<130/80) BP Controlled (<130/80) [facility] Start: 10-16-2024 Advance Directive Discussion Advance Directive Discussion [facility] Start: 10-16-2024 Medicare Advantage Annual Wellness Visit Medicare Advantage Annual Wellness Visit [facility] Start: 10-04-2024 Hemoglobin A1c measurement HbA1C [facility] Start: 08-14-2024 3 comp foot exam completed Diabetic Foot Exam [facility] Start: 08-14-2024 Annual PCP Team Chronic Disease Visit Annual PCP Team Chronic Disease Visit [facility] Start: 08-14-2024 BP Controlled (<130/80) BP Controlled (<130/80) [facility] Start: 08-14-2024 Complete blood count Hemoglobin/Hematocrit [facility] Start: 08-14-2024 Creatinine measurement Serum Creatinine [facility] Start: 08-14-2024 Diabetic foot examination Diabetic Foot Exam [facility] Start: 08-14-2024 Hemoglobin/Hematocrit Hemoglobin/Hematocrit [facility] Start: 08-14-2024 Hepatitis B surface antibody level LDL Cholesterol [facility] Start: 08-14-2024 Hepatitis B Vaccine (1 of 3 - Risk 3-dose series) Hepatitis B Vaccine (1 of 3 - Risk 3-dose series) [facility] Comment on above: Postponed from 2003 (Declined at t his time) Start: 08-14-2024 RSV Vaccine (1 - 1-dose 60+ series) RSV Vaccine (1 - 1-dose 60+ series) [facility] Comment on above: Postponed from 2003 (Declined at t his time) Start: 08-14-2024 RSV Vaccine (1 - 1-dose 75+ series) RSV Vaccine (1 - 1-dose 75+ series) [facility] Comment on above: Postponed from 2018 (Declined at t his time) Start: 08-14-2024 Serum Creatinine Serum Creatinine [facility] Start: 08-06-2024 End: 08-06-2024 Patient encounter procedure 08/06/2024 1:00 PM EDT Office Visit [facility] [address] [place], [place] [phone] Laura Iraheta MD [address] [facility] [address] [place], [place] [phone] Referral from Josselyn Mayer - carotid stenosis 05/02/24 Carotid US [facility] Comment on above: Referral from Josselyn Mayer - carotid s tenosis 05/02/24 Carotid US Start: 07-29-2024 End: 07-29-2024 ambulatory 07/29/2024 11:15 AM EDT Results Only [facility] [address] [place] [address] [facility] Start: 07-23-2024 End: 07-23-2024 Admission to same day surgery center 07/23/2024 10:00 AM EDT - 07/23/2024 11:30 AM EDT Surgery [employer]ICE [employer] [address] [place] [address] Pam Reddy MD [address] [facility], [address] [place], [place] [id number] CORONARY CATH RIGHT/LEFT HEART ANGIO INTRAPROCEDURAL INJECT IMAGING SUPERVISIO/INTERPRETATIO N [place] [employer]OR SERVICE 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 Comment on above: CORONARY CATH RIGHT/LEFT HEART ANGIO INT RAPROCEDURAL INJECT IMAGING SUPERVISIO/INTERPRETATION Start: 07-23-2024 End: 07-23-2024 R & l hrt cath winjx hrt art& l ventr img CORONARY CATH RIGHT/LEFT HEART ANGIO INTRAPROCEDURAL INJECT IMAGING SUPERVISIO/INTERPRETATIO N Valvular heart disease 07/23/2024 10:00 AM EDT [place] [employer] SERVICE OPERATOR Start: 07-23-2024 Subsequent hospital visit by physician 07/23/2024 10:00 AM EDT Hospital Encounter [place] [employer] [address] [place] [address] Pam Reddy MD [address], [address] [place] [address] Valvular heart disease [I38] [employer] SERVICE [employer]PER[employer] Comment on above: Valvular heart disease [I38] Start: 07-23-2024 End: 07-23-2024 Patient encounter procedure 07/23/2024 7:30 AM EDT Appointment RADIO [facility] [place] [address] 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 [...] atrial fibrillation (HCC) Expected: 07/15/2024, Expires: 10/14/2024 [facility] Work Phone: Comment on above: Expected: 07/15/2024, Expires: Start: 07-12-2024 End: 10-11-2024 CBC W Auto Differential panel - Blood [facility] Comment on above: Expected: 07/12/2024, Expires: Start: 07-12-2024 End: 10-11-2024 Comprehensive metabolic 2000 panel - Serum or Plasma [facility] Comment on above: Expected: 07/12/2024, Expires: Start: 07-12-2024 End: 10-11-2024 Hemoglobin A1c in Blood [facility] Work Phone: Comment on above: Expected: 07/12/2024, Expires: Start: 07-12-2024 End: 10-11-2024 LIPID PANEL, NONFASTING [facility] Comment on above: Expected: 07/12/2024, Expires: Start: 07-12-2024 End: 07-12-2024 Patient encounter procedure 07/12/2024 11:20 AM EDT Office Visit [facility] [address] [place] [address] Guanakito Reno MD [address] [place], [place] [phone] 2 month follow up- stool sample,kidney and meds [facility] Comment on above: 2 month follow up- stool sample,kidney a nd meds Start: 07-10-2024 End: 10-09-2024 Basic metabolic 2000 panel - Serum or Plasma BASIC METABOLIC PANEL Lab Routine Nonrheumatic aortic valve stenosis Expected: 07/10/2024, Expires: 10/09/2024 [facility] Comment on above: Expected: 07/10/2024, Expires: Start: 07-10-2024 End: 10-09-2024 CBC panel - Blood by Automated count COMPLETE BLOOD COUNT Lab Routine Nonrheumatic aortic valve stenosis Expected: 07/10/2024, Expires: 10/09/2024 [facility] Comment on above: Expected: 07/10/2024, Expires: Start: 07-10-2024 End: 10-09-2024 Natriuretic peptide.B prohormone N-Terminal [Mass/volume] in Serum or Plasma NT PRO BNP Lab Routine Nonrheumatic aortic valve stenosis Dyspnea on exertion Expected: 07/10/2024, Expires: 10/09/2024 [facility] Comment on above: Expected: 07/10/2024, Expires: Start: 07-10-2024 End: 10-09-2024 PT panel - Platelet poor plasma by Coagulation assay PROTHROMBIN TIME Lab Routine Nonrheumatic aortic valve stenosis Expected: 07/10/2024, Expires: 10/09/2024 [facility] Comment on above: Expected: 07/10/2024, Expires: Start: 07-10-2024 End: 07-10-[address] [facility] Comment on above: Valve Clinic- Initial Visit- 5M Walk,EKG ,KCCQ Start: 06-16-2024 Covid-19 Vaccine () Covid-19 Vaccine () [facility] Start: 06-16-2024 Covid-19 Vaccine () Covid-19 Vaccine () [facility] Start: 06-16-2024 Influenza vaccination [facility] Start: 06-06-2024 End: 06-06-2024 Patient encounter procedure 06/06/2024 11:20 AM EDT Office Visit Family [facility] [address] [place] [address] Carolina Landeros APRN.AIR ROUTE TRAFFIC CONTROLLER [address] [place] [address] Urgent care follow up Family [facility] Comment on above: Urgent care follow up Start: 05-06-2024 End: 05-06-2024 Patient encounter procedure 05/06/2024 5:40 PM EDT Office Visit [facility] Lin [facility] [address] [place] [address] Corrina Lennon APRN.AIR ROUTE TRAFFIC CONTROLLER [address] [place] [address] 1 month follow up Family [facility] Comment on above: 1 month follow up Start: 05-02-2024 End: 05-02-2024 Patient encounter procedure Radiology Comment on above: Renal insufficiency [N28.9] History of carotid e ndarterectomy [Z98.890] Syncope, unspecified syncope type [R55]; Aortic valve disorder [I35.9] Start: 04-08-2024 End: 04-08-2024 Patient encounter procedure 04/08/2024 3:00 PM EDT Office Visit [facility] [address] [place] [address] Corrina Lennon APRN.AIR ROUTE TRAFFIC CONTROLLER [address] [place] [id number] 2 w f/u Family [facility] Comment on above: 2 w f/u Start: 04-08-2024 End: 03-25-2025 Echocardiography ECHO Cardiology Routine Syncope, unspecified syncope type Aortic valve disorder Expected: 04/08/2024, Expires: 03/25/2025 [facility] Comment on above: Expected: 04/08/2024, Expires: 5 Start: 04-05-2024 End: 07-05-2024 Basic metabolic 2000 panel - Serum or Plasma BASIC METABOLIC PANEL Lab Routine CKD (chronic kidney disease) stage 4, 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/min (HCC) Anemia, unspecified type Expected: 04/05/2024, Expires: 07/05/2024 [facility] Comment on above: Expected: 04/05/2024, Expires: 4 Start: 04-05-2024 End: 07-05-2024 CBC W Auto Differential panel - Blood COMPLETE BLOOD COUNT AND DIFFERENTIAL Lab Routine CKD (chronic kidney disease) stage 4, 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/min (HCC) Anemia, unspecified type Expected: 04/05/2024, Expires: 07/05/2024 [facility] Comment on above: Expected: 04/05/2024, Expires: 4 Start: 03-26-2024 End: 03-26-2024 Patient encounter procedure 03/26/2024 4:40 PM EDT Office Visit Family [facility] [address] [place] [phone] Guanakito Reno MD [address] [place] [id number] 3 month f/u Family Lin [facility] Comment on above: 3 month f/u Start: 03-26-2024 End: 06-25-2024 Basic metabolic 2000 panel - Serum or Plasma BASIC METABOLIC PANEL Lab Routine Renal insufficiency Expected: 03/26/2024, Expires: 06/25/2024 [facility] Comment on above: Expected: 03/26/2024, Expires: 4 Start: 03-26-2024 End: 03-26-2025 CBC W Auto Differential panel - Blood COMPLETE BLOOD COUNT AND DIFFERENTIAL Lab Routine Anemia, unspecified type Expected: 03/26/2024, Expires: 03/26/2025 [facility] Comment on above: Expected: 03/26/2024, Expires: 5 Start: 03-26-2024 End: 03-26-2025 Cobalamin (Vitamin B12) [Mass/volume] in Serum or Plasma VITAMIN B12 Lab Routine Anemia, unspecified type Expected: 03/26/2024, Expires: 03/26/2025 [facility] Comment on above: Expected: 03/26/2024, Expires: 5 Start: 03-26-2024 End: 03-26-2025 Ferritin [Mass/volume] in Serum or Plasma FERRITIN Lab Routine Anemia, unspecified type Expected: 03/26/2024, Expires: 03/26/2025 [facility] Comment on above: Expected: 03/26/2024, Expires: 5 Start: 03-26-2024 End: 03-26-2025 Folate [Mass/volume] in Serum or Plasma FOLATE, SERUM Lab Routine Anemia, unspecified type Expected: 03/26/2024, Expires: 03/26/2025 [facility] Comment on above: Expected: 03/26/2024, Expires: 5 Start: 03-26-2024 End: 06-25-2024 Hemoglobin A1c in Blood HEMOGLOBIN A1C Lab Routine Type 2 diabetes mellitus with stage 3 chronic kidney disease, without long-term current use of insulin, unspecified whether stage 3a or 3b CKD (HCC) Expected: 03/26/2024, Expires: 06/25/2024 [facility] Comment on above: Expected: 03/26/2024, Expires: 4 Start: 03-26-2024 End: 03-26-2025 Hemoglobin.gastrointestin al.lower [Presence] in Stool by Immunoassay IMMUNOCHEMICAL FECAL OCCULT BLOOD TEST Lab Routine Anemia, unspecified type Expected: 03/26/2024, Expires: 03/26/2025 [facility] Comment on above: Expected: 03/26/2024, Expires: Start: 03-26-2024 End: 03-26-2025 Iron and Iron binding capacity panel - Serum or Plasma IRON AND TIBC Lab Routine Anemia, unspecified type Expected: 03/26/2024, Expires: 03/26/2025 [facility] Comment on above: Expected: 03/26/2024, Expires: Start: 03-25-2024 End: 03-25-2024 Patient encounter procedure 03/25/2024 2:40 PM EDT Office Visit Cardiology [address] [place] [id number] Pam Reddy MD [address] [facility], [address] [place] [address] 1 yr f/u Cardiology Comment on above: 1 yr f/u Start: 02-14-2024 BP CONTROLLED (<130/80) BP CONTROLLED (<130/80) [facility] Start: 02-13-2024 Hemoglobin A1c measurement HbA1C [facility] Start: 02-13-2024 Hemoglobin A1c/Hemoglobin.total in Blood HbA1C [facility] Start: 02-07-2024 3 comp foot exam completed DIABETIC FOOT EXAM [facility] Start: 02-07-2024 ANNUAL PCP TEAM CHRONIC DISEASE VISIT ANNUAL PCP TEAM CHRONIC DISEASE VISIT [facility] Start: 02-07-2024 BP CONTROLLED (<130/80) BP CONTROLLED (<130/80) [facility] in Start: 02-07-2024 SHINGRIX VACCINE (1 of 2) SHINGRIX VACCINE (1 of 2) [facility] Comment on above: Postponed from 1993 (Insurance Cov erage) Start: 12-14-2023 Covid-19 Vaccine () Covid-19 Vaccine () [facility] Start: 10-16-2023 Advance Directive Discussion Advance Directive Discussion [facility] Start: 10-04-2023 BP CONTROLLED (<130/80) BP CONTROLLED (<130/80) [facility] Start: 08-15-2023 End: 08-15-2024 Basic metabolic 2000 panel - Serum or Plasma BASIC METABOLIC PNL Lab Routine Renal insufficiency Expected: 08/15/2023, Expires: 08/15/2024 [facility] Work Phone: Comment on above: Expected: 08/15/2023, Expires: Start: 08-15-2023 BP CONTROLLED (<130/80) BP CONTROLLED (<130/80) [facility] Start: 08-15-2023 End: 11-14-2023 Urinalysis complete panel - Urine URINALYSIS, WITH MICROSCOPIC Lab Routine Renal insufficiency Expected: 08/15/2023, Expires: 11/14/2023 [facility] Work Phone: Comment on above: Expected: 08/15/2023, Expires: 4 Start: 06-16-2023 Covid-19 Vaccine ( season) Covid-19 Vaccine ( season) [facility] Start: 06-16-[address] [facility] Start: 06-08-2023 COVID-19 VACCINE (5 - Moderna series) COVID-19 VACCINE (5 - Moderna series) [facility] Start: 03-29-2023 BP CONTROLLED (<130/80) BP CONTROLLED (<130/80) [facility] Start: 02-20-2023 End: 02-14-2024 Echocardiography ECHO Cardiology Routine Syncope, unspecified syncope type Aortic valve disorder Expected: 02/20/2023, Expires: 02/14/2024 [facility] Work Phone: Comment on above: Expected: 02/20/2023, Expires: 4 Start: 02-06-2023 End: 04-08-2023 ALBUMIN/CREAT RATIO RND UR ALBUMIN/CREAT RATIO RND UR Lab Routine Type 2 diabetes mellitus with stage 3 chronic kidney disease, without long-term current use of insulin, unspecified whether stage 3a or 3b CKD (HCC) Expected: 02/06/2023, Expires: 04/08/2023 [facility] Work Phone: Comment on above: Expected: 02/06/2023, Expires: Start: 02-06-2023 End: 04-08-2023 CBC W Auto Differential panel - Blood CBC + DIFF Lab Routine Type 2 diabetes mellitus with stage 3 chronic kidney disease, without long-term current use of insulin, unspecified whether stage 3a or 3b CKD (HCC) Expected: 02/06/2023, Expires: 04/08/2023 [facility] Work Phone: Comment on above: Expected: 02/06/2023, Expires: Start: 02-06-2023 End: 04-08-2023 Comprehensive metabolic 2000 panel - Serum or Plasma COMP METABOLIC PANEL Lab Routine Type 2 diabetes mellitus with stage 3 chronic kidney disease, without long-term current use of insulin, unspecified whether stage 3a or 3b CKD (HCC) Expected: 02/06/2023, Expires: 04/08/2023 [facility] Work Phone: Comment on above: Expected: 02/06/2023, Expires: Start: 02-06-2023 End: 04-08-2023 Hemoglobin A1c in Blood HGB A1C Lab Routine Type 2 diabetes mellitus with stage 3 chronic kidney disease, without long-term current use of insulin, unspecified whether stage 3a or 3b CKD (HCC) Expected: 02/06/2023, Expires: 04/08/2023 [facility] Work Phone: Comment on above: Expected: 02/06/2023, Expires: Start: 02-06-2023 End: 04-08-2023 Lipid 1996 panel - Serum or Plasma LIPID PANEL BASIC Lab Routine Type 2 diabetes mellitus with stage 3 chronic kidney disease, without long-term current use of insulin, unspecified whether stage 3a or 3b CKD (HCC) Expected: 02/06/2023, Expires: 04/08/2023 [facility] Work Phone: Comment on above: Expected: 02/06/2023, Expires: 3 Start: 01-19-2023 ANNUAL PCP TEAM CHRONIC DISEASE VISIT ANNUAL PCP TEAM CHRONIC DISEASE VISIT [facility] Start: 01-19-2023 BP CONTROLLED (<130/80) BP CONTROLLED (<130/80) [facility] Start: 01-18-2023 HEMOGLOBIN/HEMATOCRIT HEMOGLOBIN/HEMATOCRIT [facility] Start: 01-18-2023 Hepatitis B screening URINE ALBUMIN:CREATININE RATIO [facility] Start: 01-18-2023 SERUM CREATININE SERUM CREATININE [facility] Start: 12-21-2022 Hepatitis B surface antibody level LDL CHOLESTEROL [facility] Start: 10-16-2022 ADVANCE DIRECTIVE DISCUSSION ADVANCE DIRECTIVE DISCUSSION [facility] Start: 08-22-2022 End: 08-15-2023 Echocardiography ECHO Cardiology Routine Nonrheumatic aortic valve stenosis Expected: 08/22/2022, Expires: 08/15/2023 [facility] Work Phone: Comment on above: Expected: 08/22/2022, Expires: 3 Start: 07-20-2022 Hemoglobin A1c/Hemoglobin.total in Blood HBA1C [facility] Start: 06-16-[address] [facility] Start: 04-12-2022 COVID-19 VACCINE (4 - Booster for Moderna series) COVID-19 VACCINE (4 - Booster for Moderna series) [facility] Start: 02-18-2022 End: 04-20-2022 Basic metabolic 2000 panel - Serum or Plasma BASIC METABOLIC PNL Lab Routine Essential hypertension with goal blood pressure less than 140/90 Expected: 02/18/2022, Expires: 04/20/2022 [facility] Work Phone: Comment on above: Expected: 02/18/2022, Expires: 2 Start: 02-07-2022 COVID-19 VACCINE (4 - Booster for Moderna series) COVID-19 VACCINE (4 - Booster for Moderna series) [facility] Start: 10-16-2021 ADVANCE DIRECTIVE DISCUSSION ADVANCE DIRECTIVE DISCUSSION [facility] Start: 01-18-2020 3 comp foot exam completed DIABETIC FOOT EXAM [facility] Start: 12-05-2019 Glaucoma screening Dilated Retinal Exam [facility] Start: 12-05-2019 Hepatitis C antibody, confirmatory test DILATED RETINAL EXAM [facility] Start: 2018 RSV Vaccine (1 - 1-dose 75+ series) RSV Vaccine (1 - 1-dose 75+ series) [facility] Start: 2003 Hepatitis B Vaccine (1 of 3 - Risk 3-dose series) Hepatitis B Vaccine (1 of 3 - Risk 3-dose series) [facility] Start: 1993 SHINGRIX VACCINE (1 of 2) SHINGRIX VACCINE (1 of 2) [facility] Start: 1961 BP Controlled (<130/80) BP Controlled (<130/80) [facility] in Start: 1961 HEPATITIS C SCREENING HEPATITIS C SCREENING [facility] Start: 1949 PNEUMOCOCCAL: 65+ (1 - PCV) PNEUMOCOCCAL: 65+ (1 - PCV) [facility] End: 08-09-2025 CTA Abdominal vessels and Pelvis vessels W contrast IV CTA ABD/PEL W IVCON Radiology Routine Nonrheumatic aortic valve stenosis Encounter for preprocedural cardiovascular examination 1 Occurrences starting 07/10/2024 until 08/09/2025 [facility] Work Phone: Comment on above: 1 Occurrences starting 07/10/2024 until 08/09/2025 End: 07-23-2024 CTA Abdominal vessels and Pelvis vessels W contrast IV [facility] Work Phone: Comment on above: 1 Occurrences starting 07/23/2024 until 07/23/2024 End: 08-09-2025 CTA Chest vessels WO and W contrast IV CTA CHEST (GATED) WO/W IVCON Radiology Routine Nonrheumatic aortic valve stenosis Encounter for preprocedural cardiovascular examination 1 Occurrences starting 07/10/2024 until 08/09/2025 [facility] Comment on above: 1 Occurrences starting 07/10/2024 until 08/09/2025 End: 07-23-2024 CTA Chest vessels WO and W contrast IV [facility] Comment on above: 1 Occurrences starting 07/23/2024 until 07/23/2024 ECG COMPLETE ECG COMPLETE ECG Routine Syncope, unspecified syncope type Aortic valve disorder Paroxysmal atrial fibrillation (HCC) Ordered: 03/21/2024 [facility] Work Phone: Comment on above: Ordered: 03/21/2024 End: 07-10-2025 EXTENDED WEAR CCIE PATCH EXTENDED WEAR CCIE PATCH ECG Routine Nonrheumatic aortic valve stenosis 1 Occurrences starting 07/10/2024 until 07/10/2025 [facility] Comment on above: 1 Occurrences starting 07/10/2024 until 07/10/2025 End: 07-10-2024 EXTENDED WEAR CCIE PATCH EXTENDED WEAR CCIE PATCH ECG Routine Nonrheumatic aortic valve stenosis 1 Occurrences starting 07/10/2024 until 07/10/2024 [facility] Work Phone: Comment on above: 1 Occurrences starting 07/10/2024 until 07/10/2024 Hemoglobin.tony lopezlower [Presence] in Stool by Immunoassay IMMUNOCHEMICAL FECAL OCCULT BLOOD TEST Lab Routine CKD (chronic kidney disease) stage 4, 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/min ([facility]) Anemia, unspecified type Ordered: 04/05/2024 [facility] Work Phone: Comment on above: Ordered: 04/05/2024 Hemoglobin.tony lopezlower [Presence] in Stool by Immunoassay IMMUNOCHEMICAL FECAL OCCULT BLOOD TEST Lab Routine Screen for colon cancer Ordered: 2024 [facility] Work Phone: Comment on above: Ordered: 2024 OUTSIDE VENDOR CARDI AC OUTPATIENT EXTENDED RHYTHM RECORDING (WITHOUT TELEMETRY) OUTSIDE VENDOR CARDIAC OUTPATIENT EXTENDED RHYTHM RECORDING (WITHOUT TELEMETRY) Holter Routine Syncope, unspecified syncope type Ordered: 02/13/2023 [facility] Work Phone: Comment on above: Ordered: 02/13/2023 Removal impacted cer umen irrigation/lvg unilat AMBULATORY EAR LAVAGE/IRRIGATION Procedures Routine Bilateral impacted cerumen Ordered: 01/21/2025 [facility] Comment on above: Ordered: 01/21/2025 End: 03-26-2025 US Carotid arteries - bilateral US CAROTID ARTERIES GRAY [facility] LAB Vascular Lab Routine History of carotid endarterectomy 1 Occurrences starting 03/26/2024 until 03/26/2025 [facility] Work Phone: Comment on above: 1 Occurrences starting 03/26/2024 until 03/26/2025 End: 03-16-2023 US CAROTID ARTERIES [facility] US CAROTID ARTERIES [facility]RAY [facility] Vascular Lab Routine Bilateral carotid artery stenosis 1 Occurrences starting 03/18/2022 until 03/16/2023 [facility] Work Phone: Comment on above: 1 Occurrences starting 03/18/2022 until 03/16/2023 End: 10-04-2023 US CAROTID ARTERIES GRAY VAS LAB US CAROTID ARTERIES GRAY VAS LAB Vascular Lab Routine Bilateral carotid artery stenosis 1 Occurrences starting 10/04/2022 until 10/04/2023 [facility] Work Phone: Comment on above: 1 Occurrences starting 10/04/2022 until 10/04/2023 End: 04-25-2025 US Kidney - bilateral and Urinary bladder US KIDNEY/BLADDER Radiology Routine Renal insufficiency 1 Occurrences starting 03/26/2024 until 04/25/2025 [facility] Comment on above: 1 Occurrences starting 03/26/2024 until 04/25/2025 [facility] Immunizations Immunization Date Immunization Notes Care Provider [facility] 07-12-2024 COVID-19 vaccine, ag e 12+ yr ([email or web address] [facility]) Guanakito Reno MD Work Phone: [facility] 07-12-2024 influenza, high dose seasonal, preservative-free Guanakito Reno MD Work Phone: [facility] 07-12-2024 influenza virus vacc ine, unspecified formulation Guanakito Reno MD Work Phone: [facility] 08-14-2023 COVID-19 vaccine, ag e 12+ yr, season (Shibumi) Guanakito Reno MD Work Phone: [facility] 08-14-2023 influenza (HD-IIV4) vaccine, age 65+ yr, high dose, quadrivalent, PF (FLUZONE HIGH-DOSE) Guanakito Reno MD Work Phone: [facility] 08-14-2023 influenza virus vacc ine, unspecified formulation Ruthie Cuevas [facility] 02-06-2023 COVID-19 vaccine, ag e 12+ yr, bivalent ([email or web address]) Guanakito Reno MD Work Phone: [facility] 12-13-2021 COVID-19 vaccine, ag e 12+ yr (P[employer]ZER-BIONTECH - YANES TOP) Guanakito Reno MD Work Phone: [facility] 04-22-2021 tetanus and diphther ia toxoids, adsorbed, preservative free, for adult use (5 Lf of tetanus toxoid and 2 Lf of diphtheria toxoid) Guanakito Reno MD Work Phone: [facility] 02-16-2021 COVID-19 vaccine, fu ll dose (MODERNA) Guanakito Reno MD Work Phone: [facility] Work Phone: 01-19-2021 COVID-19 vaccine, fu ll dose (MODERNA) Guanakito Reno MD Work Phone: [facility] Work Phone: 07-18-2019 influenza, high dose seasonal, preservative-free Guanakito Reno MD Work Phone: [facility] Work Phone: 07-18-2019 influenza virus vacc ine, unspecified formulation Lizette Cardenas RN [facility] 09-15-2017 influenza, high dose seasonal, preservative-free Guanakito Reno MD Work Phone: [facility] 08-11-2016 influenza, high dose seasonal, preservative-free Guanakito Reno MD Work Phone: [facility] 08-11-2016 pneumococcal polysaccharide vaccine, 23 valent Guanakito Reno MD Work Phone: [facility] 08-10-2015 influenza, high dose seasonal, preservative-free Guanakito Reno MD Work Phone: [facility] 04-09-2015 pneumococcal conjuga te vaccine, 13 valent Guanakito Reno MD Work Phone: [facility] 10-21-2013 influenza virus vacc ine, unspecified formulation Guanakito Reno MD Work Phone: [facility] 08-08-2012 influenza virus vacc ine, unspecified formulation Guanakito Reno MD Work Phone: [facility] Work Phone: 10-12-2005 pneumococcal polysaccharide vaccine, 23 valent Guanakito Reno MD Work Phone: [facility] Work Phone: 12-02-2003 diphtheria and tetan us toxoids, adsorbed for pediatric use Guanakito Reno MD Work Phone: [facility] Work Phone: Payers Date Payer Category Payer Self-pay 2024 Unknown [id number] 2019 Medicare UHC AAR MEDICAR E FORMERLY [facility] MEDICARE O [id number] 2019-Present [phone] [place] [id number] [facility] [id number] 2019 Medicare UHC AAR MEDICAR E FORMERLY [facility] MEDICARE O [id number] 2019-Present [phone] [place] [id number] [facility] [id number] 2019 Medicare (Managed Care) FORMERLY [facility] MEDICARE HMO [id number] 2019 Medicare [id number] 2009 Unknown [id number] 2008 Medicare [id number] Medicare [id number] Unknown [id number] .[id number]. 462 Unknown [id number] .840.1.541952.3.579.2. 462 Unknown [id number] .[id number]. 462 Unknown [id number] .[id number]. 462 Unknown [id number] .840.1.588100.3.579.2. 462 Unknown [id number] .840.1.658116.3.579.2. 462 Unknown [id number] .840.1.278672.3.579.2. 462 Unknown [id number] .840.1.591378.3.579.2. 462 Unknown [id number] .840.1.140796.3.579.2. 462 Unknown [id number]. 462 Unknown [id number]. 462 Unknown [id number] .840.1.138751.3.579.2. 462 Unknown [id number]. 462 Unknown [id number] .840.1.113799.3.579.2. 462 Unknown [id number] .840.1.803610.3.579.2. 462 Unknown [id number] .840.1.564374.3.579.2. 462 Unknown [id number]. 462 Unknown [id number]. 462 Unknown [id number]. 462 Unknown [id number]. 462 Social History Date Type Detail Facility Start: 08-10-2015 End: 03-06-2025 Tobacco smoking status NHIS Ex-smoker [facility] Start: 12-05-1975 End: 12-05-1985 History of tobacco use Current smoker [facility] Start: 12-05-1975 End: 12-05-1985 History of tobacco use Cigarette Smoker [facility] Start: 01-19-2022 End: 03-06-2025 Alcohol intake Current non-drinker of alcohol (finding) [facility] Start: 10-26-2020 History SDOH Alcohol Frequency 1 [facility] Start: 10-26-2020 History SDOH Alcohol Std Drinks 98 [facility] Start: 05-15-2019 History SDOH Alcohol Comment none now; social in past [facility] Start: 10-26-2020 History SDOH Social Connections Get Together 2 [facility] Start: 10-26-2020 History SDOH Social Connections Living 4 [facility] Start: 10-26-2020 History SDOH Physica l Activity DPW 0 [facility] Start: 10-26-2020 History SDOH Financial 5 [facility] Start: 10-26-[address] [facility] Start: 1945 Sex Assigned At Not on file [facility] Start: 01-09-2022 End: 08-15-2022 Exposure to SARS-CoV-2 (event) Not sure [facility] Start: 03-22-2022 End: 04-01-2022 Exposure to SARS-CoV-2 (event) Unable to assess [facility] Work Phone: Start: 08-10-2015 End: 04-11-2023 Cigarettes smoked current (pack per day) - Reported 2 [facility] Start: 08-10-2015 End: 06-05-2024 Tobacco use and exposure Smokeless tobacco non-user [facility] Start: 10-26-2020 End: 04-11-2023 Social connection and isolation panel [facility] Do you belong to any clubs or organizations such as baptism groups, unions, fraternal or athletic groups, or school groups? No [facility] Are you now , , , , never or living with a partner? [facility] How often to you hav e a drink containing alcohol? Never [facility] How many standard dr inks containing alcohol do you have on a typical day? Patient refused [facility] Do you feel stress - tense, restless, nervous, or anxious, or unable to sleep at night because your mind is troubled all the time - these days [OSQ] Only a little [facility] (I/We) worried vannesa er (my/our) food would run out before (I/we) got money to buy more. Never true [facility] Start: 1945 Sex Assigned At Male [facility] Medical Equipment Procedure Code Equipment Code Equipment Origin al Text Equipment Identifier Dates [id number], [id number] Start: 11-11-2011 Comment on above: Test blood sugar(s) one times daily. Dx: 250.00. Insulin: No Test blood sugar(s) one time daily. Dx: 250.00. Insulin: No Goals Date Patient Goal Desired Activity /State Personal health goal Functional Status Date Assessment Result Facility 04-09-2015 Are you deaf, or do you have serious difficulty hearing No 04/09/2015 11:20 AM Stephany Welch MA No [facility] 04-09-2015 Are you blind, or do you have serious difficulty seeing, even when wearing glasses No 04/09/2015 11:20 AM Stephany Welch MA No [facility] 04-09-2015 Do you have serious difficulty walking or climbing stairs No 04/09/2015 11:20 AM Stephany Welch MA No [facility] 04-09-2015 Do you have difficul ty dressing or bathing No 04/09/2015 11:20 AM Stephany Welch MA [facility] 04-09-2015 Because of a physica l, mental, or emotional condition, do you have difficulty doing errands alone such as visiting a physician's office or shopping No 04/09/2015 11:20 AM EDT Stephany Graves MA No [facility] Mental Status Date Assessment Result Facility 04-09-2015 Because of a physica l, mental, or emotional condition, do you have serious difficulty concentrating, remembering, or making decisions No 04/09/2015 11:20 AM EDT Stephany Graves MA No [facility] Clinical Notes 03-29-2011 to 04-15-2025 Telephone Encounter - Twin Cole, [facility] - 04/15/2025 9:09 AM EDTTelephone Encounter - Twin Cole, [facility] - 04/15/2025 9:09 AM EDTTelephone Encounter - Leidy Malone RN - 04/14/2025 3:18 PM EDT Note Date & Type Note Facility 04-15-[address] Note [facility] Ambulatory Pharmacy Anticoagulation Clinic Anticoagulation Episode Summary Anticoagulation Care Providers Provider Role Specialty Phone number Guanakito Reno MD [facility] [phone] Cal Mitchell is a 79 year old [...] Pharmacy Anticoagulation Clinic Pharmacy [facility] Pager: [phone]. [facility] 04-15-2025 Miscellaneous Notes Formattin g of this note is different from the original. [facility] Anticoagulation Clinic Anticoagulation Episode Summary Anticoagulation Care Providers Provider Role Specialty Phone number Guanakito Reno MD [facility] Family Medicine [phone] Cal Mitchell is a 79 year old [...] Pharmacy Anticoagulation Clinic Pharmacy Antico[facility] Clinic Pager: [phone]. documented in this encounter [facility] 04-14-2025 Telephone encount er Note Gustavo calls back and notified of provider recommendation below. Voices understanding. Leidy Malone RN [facility] 04-14-2025 Miscellaneous Notes Formattin g of [...] him? Please advise documented in this encounter [facility] 04-14-2025 Telephone encount er Note Phoned Gustavo left message to return call and ask to speak to a nurse. [facility] 04-14-2025 Telephone encount er Note yes [facility] 04-14-2025 Telephone encount er Note Patient son in law Chen calling he has been giving the patient Tylenol 500 mg two tablets twice daily since his fracture right shoulder at almost the end of February. He is asking if it is alright that they are still giving it to him? Please advise [facility] 04-08-2025 Telephone encount er Note The following approved medication requests have been transmitted electronically. Requested Prescriptions Pending Prescriptions Disp Refills warfarin (COUMADIN) 5 mg tablet 90 tablet 3 Sig: Take 1 tablet by mouth once daily. warfarin (COUMADIN) 5 mg tablet 30 tablet 0 Sig: Take 1 tablet by mouth once daily. Carolina Landeros APRN.[employer]IR [employer] [facility] 04-08-2025 Miscellaneous Notes Formattin g of [...] 2025 2:33 PM documented in this encounter [facility] 04-08-2025 Telephone encount er Note Prescription [...] Meyer LPN April 08, 2025 2:[address] [facility] 04-08-2025 Miscellaneous Notes Formattin g of [...] 2025 2:38 PM documented in this encounter [facility] 04-08-2025 Telephone encount er Note Prescription [...] Meyer LPN April 08, 2025 2:[address] [facility] 04-08-2025 Evaluation note Diagnosis Hypertensive kidney disease with stage 3 chronic kidney disease, unspecified whether stage 3a or 3b CKD (HCC) Type 2 diabetes mellitus with stage 3 chronic kidney disease, without long-term current use of insulin, unspecified whether stage 3a or 3b CKD (HCC) Chronic renal disease, stage IV (HCC) Chronic kidney disease, Stage IV (severe) documented in this encounter [facility]06-13-2025 Telephone encounter Note* Telephone Encounter - Niels Rodriges RN - 03/28/2025 1:04 PM EDT Faxed recent ov notes to [facility] per daughter, January request. . January reports she talked to [facility] about patient going to live there and [facility] instructed her to have pcp office send an H & P to them for review. [facility]06-13-2025 Miscellaneous Notes* Telephone Encounter - Niels Rodriges RN - 03/28/2025 1:04 PM EDT Faxed recent ov notes to [facility] per daughter, January request. . January reports [place] [facility] and [facility] instructed her to have pcp office send an H & P to them for review. documented in [facility] Telephone encounter Note * Telephone Encounter - Alejandro Molina RPh - 03/24/2025 10:57 AM EDT [facility] Pharmacy Anticoagulation Clinic Anticoagulation Episode Summary Anticoagulation Care Providers Provider Role Specialty Phone number Guanakito Reno MD Responsible [facility] [phone] Cal Mitchell is a 79 year old [...] instructed to call [facility] at [phone] with any questionsor concerns. Alejandro Molina RPh Clinical Pharmacist, Pharmacy Anticoagulation Clinic Pharmacy Anticoagulation Clinic Pager: [phone] [facility]06-09-2025 Miscellaneous Notes* Telephone Encounter - Alejandro Molina RPh - 03/24/2025 10:57 AM EDT [facility] Pharmacy Anticoagulation Clinic Anticoagulation Episode Summary Anticoagulation Care Providers Provider Role Specialty Phone number Guanakito Reno MD [facility] [phone] Cal Mitchell is a 79 year old [...] instructed to call [facility] at [phone] with any questionsor concerns. Alejandro Molina RPh Clinical Pharmacist, Pharmacy Anticoagulation Clinic Pharmacy Anticoagulation Clinic Pager: [phone] documented in [facility] encounterSt[facility] Evaluation note* Diagnosis Onset Date Resolution Status Admit Date Closed fracture of right pro ximal humerus acute March 07, 2025 1 2:49pm [facility] Work Phone: [phone] Evaluation note* Diagnosis Onset Date Resolution Status Admit Date Closed fracture of right proximal humerus acute March 07, 2025 12:49pm Closed fracture of right proximal humerus acute May 02, 2025 10:11am [facility] Work Phone: [phone] NoteHNO ID: [id number] Author: CAROLINA LANDEROS APRN.KOURTNEY Service: ? Author [...] and 9-10/10 with movement. - Currently taking [place] for pain management. - Denies pain elsewhere [...] 250.00. Insulin: No Lancets (ONE TOUCH DELICA) [facility] lancets Test blood sugar(s) one [...] in a sl (more content not included)... [facility]05-08-2025 Telephone encounter Note* Telephone Encounter - Jimmy Carrizales, [facility] - 02/20/2025 8:[address] 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 Jimmy Carrizales [facility] Clinical Pharmacist, Pharmacy Anticoagulation Clinic Pharmacy Anticoagulation Clinic Pager: [phone]. [facility]05-08-2025 Miscellaneous Notes* Telephone Encounter - Jimmy Carrizales RPh - 02/20/2025 8:[address] [facility] Ambulatory Pharm[facility] Anticoagulation Clinic Anticoagulation Episode Summary Anticoagulation Care Providers Provider Role Specialty Phone number Guanakito Reno MD [facility] Family Medicine [phone] Cal Mitchell is a 79 year old [...] 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: senior care (current) use of anticoagulants Paroxysmal atrial fibrillation [...] missed any doses of warfarin. Jimmy Carrizales [facility] Clinical Pharmacist, Pharmacy Anticoagulation Clinic Pharmacy Anticoagulation Clinic Pager: [phone]. documented in this encounterSt[facility]04-[facility]2025 Telephone encounter Note * Telephone Encounter - Kamran Ayon RPh - 01/31/2025 12:[address] 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 [facility]04-18-2025 Miscellaneous Notes* Telephone Encounter - Kamran Ayon RPh - 01/31/2025 12:[address] 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 documented in this encounterSt. [facility]04-[facility]-20[facility] Progress note* Result Encounter Note - [...] levels, magnesium, and B12 are all normal. [facility]04-10-2025 Miscellaneous Notes* Result Encounter Note - [...] B12 are all normal. documented in this encounterSt. [facility]04-08-2025 NoteHNO ID: [id number] Author: GEOVANNA HINDS MA Service: ? Author Type: De Icer Type: Progress Notes Filed: 01/21/2025 17:08 Note [...] Geovanna Hinds MA January 21, 2025 5:08 [facility]04-08-2025 History of Present illness Narrative* Geovanna [...] 21, 2025 5:08 PM * Carolina Landeros APRN.[facility] - 01/21/2025 3:43 PM EDT This [...] taking lisinopril Monitors bp at home: Yes. [place] checks it, ok there Denies side effects: [...] No oropharyngeal exudate. Eyes: Comments: Conjunctiva gray. [place] and itchy Cardiovascular: Rate and Rhythm: Normal [...] MG TABLET - COMPREHENSIVE METABOLIC PANEL 12. senior care (current) use of anticoagulants - ICD9: V58.61, [...] \ Carolina Landeros APRN.CNP documented in this encounterSt. [facility]04-08-2025 Note* Addendum Note - Carolina Landeros APRN.CNP - 01/21/2025 4:54 PM EDTAddended by: CAROLINA LANDEROS on: 01/21/2025 04:54 PM Modules accepted: Orders [facility]04-08-2025 Miscellaneous Notes* Addendum Note - Carolina Landeros APRN.CNP - 01/21/2025 4:54 PM EDTAddended by: CAROLINA LANDEROS on: 01/21/2025 04:54 PM Modules accepted: Orders * Addendum Note - Geovanna Hinds MA - 01/21/2025 4:33 PM EDTAddended by: GEOVANNA HINDS on: 01/21/2025 04:33 PM Modules accepted: Orders documented in this encounterSt. [facility]04-08-2025 Note* Addendum Note - Geovanna Hinds MA - 01/21/2025 4:33 PM EDTAddended by: GEOVANNA HINDS on: 01/21/2025 04:33 PM Modules accepted: Orders [facility]04-08-2025 Instructions* Patient Instructions* Carolina Landeros APRN.CNP [...] up in 6 months documented in this encounterSt. [facility]04-08-2025 NoteHNO ID: [id number] Author: CAROLINA LANDEROS APRN.CNP Service: ? Author [...] taking lisinopril Monitors bp at home: Yes. [place] checks it, ok there Denies side effects: [...] 250.00. Insulin: No Lancets (ONE TOUCH DELICA) [facility] lancets Test blood sugar(s) one [...] Drug use: No EXAM: (more content not included)...[facility]03-26-2025 Miscellaneous Notes* Telephone Encounter - Josselyn Barrow [...] 08, 2025 2:53 PM documented in this encounterSt. [facility]03-26-2025 Telephone encounter Note * Telephone Encounter [...] Barrow LPN January 08, 2025 2:[address] [facility]03-26-2025 Telephone encounter Note* Telephone Encounter - Ruthie Cuevas [facility] - 01/08/2025 8:[address] [facility] Ambulatory Pharmacy Anticoagulation Clinic Anticoagulation Episode Summary Anticoagulation Care Providers Provider Role Specialty Phone number Guanakito Reno MD [facility] Family Medicine [phone] Cal Mitchell is a 79 year old [...] 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: senior care (current) use of anticoagulants Paroxysmal atrial fibrillation [...] Pharmacy Anticoagulation Clinic Pharmacy Anticoagulation Clinic Pager: [phone]. [facility]03-26-2025 Miscellaneous Notes* Telephone Encounter - Ruthie Cuevas RPh - 01/08/2025 8:[address] [facility] Ambulatory Pharmacy Anticoagulation Clinic Anticoagulation Episode Summary Anticoagulation Care Providers Provider Role Specialty Phone number Guanakito Reno MD [facility] [phone] Cal Mitchell is a 79 year old [...] 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: senior care (current) use of anticoagulants Paroxysmal atrial fibrillation [...] they have missed any doses of warfarin. Rtuhie Cuevas RPh Clinical Pharmacist, Pharmacy Anticoagulation Clinic Pharmacy Anticoagulation Clinic Pager: [phone]. documented in this encounterSt. [facility]03-26-2025 Evaluation note* Diagnosis Hypertensive kidney disease with stage 3 chronic kidney disease, unspecified whether stage 3a or 3b CKD (HCC) documented in this encounter [facility]03-17-2025 Telephone encounter Note* Telephone Encounter - Octavio (DiBcomRuben Granados - 12/30/2024 9:15 AM EDT [facility] called regarding INR result for patient. Result has been addressed below, no further action needed. Ruben Cunningham Manager Transfusion (procurement professional) Pharmacy Anticoagulation Clinic [facility]03-17-2025 Miscellaneous Notes* Telephone Encounter - Octavio JansenDiBcomRuben Granados - 12/30/2024 9:15 AM EDT [facility] called regarding INR result for patient. Result has been addressed below, no further action needed. Ruben Cunningham Manager Transfusion (procurement professional) Pharmacy Anticoagulation Clinic * Telephone Encounter - Twin Cole RPh - 12/30/2024 9:[address] [facility] Ambulatory Pharmacy Anticoagulation Clinic Anticoagulation Episode Summary Anticoagulation Care Providers Provider Role Specialty Phone number Guanakito Reno MD [facility] [phone] Cal Mitchell is a 79 year old [...] Pharmacy Anticoagulation Clinic Pharmacy Anticoagulation Clinic Pager: [phone]. documented in this encounterSt. [facility]03-17-2025 Telephone encounter Note * Telephone Encounter - Twin Cole RPh - 12/30/2024 9:[address] [facility] Ambulatory Pharmacy Anticoagulation Clinic Anticoagulation Episode Summary Anticoagulation Care Providers Provider Role Specialty Phone number Guanakito Reno MD [facility] [phone] Cal Mitchell is a 79 year old [...] Pharmacy Anticoagulation Clinic Pharmacy Anticoagulation Clinic Pager: [phone]. [facility]02-26-2025 Telephone encounter Note* Telephone Encounter - Jimmy Carrizales RP - 12/11/2024 9:[address] [facility] Ambulatory Pharmacy Anticoagulation Clinic Anticoagulation Episode Summary Anticoagulation Care Providers Provider Role Specialty Phone number Guanakito Reno MD [facility] Family Medicine [phone] Cal Mitchell is a 79 year old [...] 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: senior care (current) use of anticoagulants Paroxysmal atrial fibrillation [...] Pharmacy Anticoagulation Clinic Pharmacy Anticoagulation Clinic Pager: [phone]. [facility]02-26-2025 Miscellaneous Notes* Telephone Encounter - Jimmy Carrizales RPh - 12/11/2024 9:[address] [facility] Ambulatory Pharmacy Anticoagulation Clinic Anticoagulation Episode Summary Anticoagulation Care Providers Provider Role Specialty Phone number Guanakito Reno MD [facility] Medicine [phone] Cal Mitchell is a 79 year old [...] 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: senior care (current) use of anticoagulants Paroxysmal atrial fibrillation [...] Pharmacy Anticoagulation Clinic Pharmacy Anticoagulation Clinic Pager: [phone]. documented in this encounterSt. [facility] Telephone encounter Note * Telephone Encounter - Twin Cole [facility] - 11/26/2024 5:[address] [facility] Ambulatory Pharmacy Anticoagulation Clinic Anticoagulation Episode Summary Anticoagulation Care Providers Provider Role Specialty Phone number Guanakito Reno MD [facility] [phone] Cal Mitchell is a 79 year old [...] Pharmacy Anticoagulation Clinic Pharmacy Anticoagulation Clinic Pager: [phone]. [facility]02-11-2025 Miscellaneous Notes* Telephone Encounter - Twin Cole RPh - 11/26/2024 5:[address] [facility] Ambulatory Pharmacy Anticoagulation Clinic Anticoagulation Episode Summary Anticoagulation Care Providers Provider Role Specialty Phone number Guanakito Reno MD [facility] Family Medicine [phone] Cal Mitchell is a 79 year old [...] Pharmacy Anticoagulation Clinic Pharmacy Anticoagulation Clinic Pager: [phone]. documented in this encounterSt. [facility]01-[facility] Telephone encounter Note * Telephone Encounter - Alejandro Molina RPh - 10/28/2024 5:[address] [facility] Ambulatory Pharmacy Anticoagulation Clinic Anticoagulation Episode Summary Anticoagulation Care Providers Provider Role Specialty Phone number Guanakito Reno MD [facility] Family Medicine [phone] Cal Mitchell is a 79 year old [...] instructed to call Pharmaceutical Anticoagulation Clinic at [phone] with any questionsor concerns. Alejandro Molina RPh Clinical Pharmacist, Pharmacy Anticoagulation Clinic Pharmacy Anticoagulation Clinic Pager: [phone] [facility]01-13-2025 Miscellaneous Notes* Telephone Encounter - Alejandro Molina RPh - 10/28/2024 5:[address] [facility] Ambulatory Pharmacy Anticoagulation Clinic Anticoagulation Episode Summary Anticoagulation Care Providers Provider Role Specialty Phone number Guanakito Reno MD [facility] [phone] Cal Mitchell is a 79 year old [...] instructed to call Pharmaceutical Antico[facility] at [phone] with any questionsor concerns. Alejandro Molina RPh Clinical Pharmacist, Pharmacy Anticoagulation Clinic Pharmacy Anticoagulation Clinic Pager: [phone] documented in this encounterSt. Anthony'S Hospital01-06-2025 Telephone encounter Note * Telephone Encounter - Ashley De Dios RN - 10/21/2024 2:58 PM EST Pt ALEC Chen called and is notified of providers message. He voices understanding. Ashley De Dios RN [facility]01-06-2025 Miscellaneous Notes* Telephone Encounter - Ashley [...] Please call and advise. documented in this encounterSt. Anthony'S Hospital01-06-2025 Telephone encounter Note * Telephone Encounter - Guanakito Reno MD - 10/21/2024 2:[address]01-06-2025 Telephone encounter Note* Telephone Encounter - [...] to the Pt. Ashley De Dios RN [facility]01-06-2025 Telephone encounter Note* Telephone Encounter - Guanakito Reno MD - 10/21/2024 1:55 PM EST Can try mucinex otc. Call if symptoms worsen at all or if not better in one to two weeks [facility]01-06-2025 Telephone encounter Note* Telephone Encounter - Ashley [...] him for Covid. Please call and advise. [facility]12-17-2024 Telephone encounter Note* Telephone Encounter - Twin Cole [facility] - 10/01/2024 9:[address] [facility] Ambulatory Pharmacy Anticoagulation Clinic Anticoagulation Episode Summary Anticoagulation Care Providers Provider Role Specialty Phone number Guanakito Reno MD [facility] [phone] Cal Mitchell is a 79 year old [...] Pharmacy Anticoagulation Clinic Pharmacy Anticoagulation Clinic Pager: [phone]. [facility]12-17-2024 Miscellaneous Notes* Telephone Encounter - Twin Cole RPh - 10/01/2024 9:[address] [facility] Ambulatory Pharmacy Anticoagulation Clinic Anticoagulation Episode Summary Anticoagulation Care Providers Provider Role Specialty Phone number Guanakito Reno MD [facility] [phone] Cal Mitchell is a 79 year old [...] Pharmacy Anticoagulation Clinic Pharmacy Anticoagulation Clinic Pager: [phone]. documented in this encounterSt. [facility]'S [facility]11-11-2024 Telephone encounter Note * Telephone Encounter - Alejandro Molina RPh - 08/26/2024 6:[address] [facility] Ambulatory Pharmacy Anticoagulation Clinic Anticoagulation Episode Summary Anticoagulation Care Providers Provider Role Specialty Phone number Guanakito Reno MD [facility] [phone] Cal Mitchell is a 79 year old [...] warfarin instructions: 5 mg every day Sent [place] message Advised patient to continue current weekly dose as noted above Next INR check due on 09/09/2024 Alejandro Molina RPh Clinical Pharmacist, Pharmacy Anticoagulation Clinic Pharmacy Anticoagulation Clinic Pager: [phone]. [facility]11-11-2024 Miscellaneous Notes* Telephone Encounter - Alejandro Molina RPh - 08/26/2024 6:[address] [facility] Ambulatory Pharmacy Anticoagulation Clinic Anticoagulation Episode Summary Anticoagulation Care Providers Provider Role Specialty Phone number Guanakito Reno MD [facility] Family Medicine [phone] Cal Mitchell is a 79 year old [...] warfarin instructions: 5 mg every day Sent [place] message Advised patient to continue current weekly dose as noted above Next INR check due on 09/09/2024 Alejandro Molina RPh Clinical Pharmacist, Pharmacy Anticoagulation Clinic Pharmacy Anticoagulation Clinic Pager: [phone]. documented in this encounterSt. Anthony'S Hospital11-04-2024 NoteHNO ID: [id number] Author: MELANIA GALINDO RN Service: ? Author Type: Registered Nurse Type: Progress Notes Filed: 08/19/2024 12:55 Note Text: Summary: Medication Adherence Review per Request of Payor ACNiels LUIS RN Reason for review or outreach: Medication Adherence Review Details: Cholesterol FYI/REQUESTED ACTION: Summary / Findings: Atorvastatin was due for refill on/before 08.09.24. Sent [place] reminder 08.15.24- not read Called patient Patient identified by name and date of . Patient Attributed To: YANCIE Payer: [employer] [place] Action Taken: Data submitted to Payer Contact made with patient: No, Left message BENJIE Schreiber [facility]NMercy [facility]11-[facility] History of Present illness Narrative* Melania Galindo RN - 08/19/2024 12:51 PM ESTSummary: Medication Adherence Review per Request of Payor [facility] LUIS RN Reason for review or outreach: Medication Adherence Review Details: Cholesterol FYI/REQUESTED ACTION: Summary / Findings: Atorvastatin was due for refill on/before 08.09.24. Sent [place] reminder 08.15.24- not read Called patient Patient identified by name and date of . Patient Attributed To: QAE [place]ayer: [place] Action Taken: Data submitted to Payer Contact made with patient: No, Left message BENJIE Schreiber RN documented in this encounterSt. Anthony'S Hospital11-04-2024 NotePatient Outreach ([facility]) CAL MITCHELL ([id number]) 1945 M Date Time Provider Department 08/19/24 [facility]INDO [facility] During your visit today, we recorded the following information about you: Melania Galindo RN 08/19/2024 12:55 PM Signed ACM LUIS RN Reason for review or outreach: Medication Adherence Review Details: Cholesterol FYI/REQUESTED ACTION: Summary / Findings: Atorvastatin was due for refill on/before 08.09.24. Sent [place] reminder 08.15.24- not read Called patient Patient identified by name and date of . 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 [Z79.*02/04/2020 Dementia, vascular, mixed, with behavioral dist*08/26/2020 08/14/2023 Obesity, Class II, BMI 35-39.9 [E66.812] 08/15/2022 Aortic valve disorder [I35.9] 08/15/2022 Abnormal electrocardiography [R94.31] 08/14/2023 Diagnosed: 08/14/2023 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 Cannot tell this Nurse what he is taking and not takiing at this time. Bi Cantu LPN August 06, 2024 1:[address] [facility]10-22-2024 Nurse Note* Bi Cantu LPN - 08/06/2024 1:28 PM EDT Patient not a good historian of medications. Cannot tell this Nurse what he is taking and not takiing at this time. Bi Cantu LPN August 06, 2024 1:29 PM documented in this encounterSt. Anthony'S Hospital10-22-2024 NoteHNO ID: [id number] Author: LAURA IRAHETA MD Service: ? Author Type: Physician Type: Progress Notes Filed: 08/06/2024 17:14 Note Text: [facility] V[facility] Thor[facility] [place] DEPARTMENT OF VASCULAR SURGERY OUTPATIENT VISIT DATE [...] 250.00. Insulin: No Lancets (ONE TOUCH DELICA) [facility] lancets Test blood sugar(s) one time daily. Dx: 250.00. Insulin: No ALLERGIES: ALLERG (more content not included)...[facility]10-22-2024 History of Present illness Narrative* Laura Iraheta MD - 08/06/2024 1:25 PM EDT Images from the original note were not included. Heart , V[facility] Thor[facility] [place] DEPARTMENT OF VASCULAR SURGERY OUTPATIENT VISIT DATE [...] airway obstruction, not elsewhere classified 10/2004 [facility] ([facility]) Diverticulosis of colon (without mention of hemorrhage) Ectatic thoracic aorta ([facility]) 06/07/2018 06/07/18 Chest CTA: There is atherosclerotic [...] 250.00. Insulin: No Lancets (ONE TOUCH DELICA) [facility] lancets Test blood sugar(s) one [...] 2024 TIME: 4:41 PM documented in this encounterSt. Anthony'S Hospital10-17-2024 Telephone encounter Note * Telephone Encounter - Josselyn Mayer APRN.CNP - 08/01/2024 9:56 AM EDT I spoke with Gustavo and communicated recommendations of medical therapy. He reports patient also expressed wanting to continue without any further intervention. Patient and family agreeable to plan. Josselyn Mayer APRN.CNP [facility]10-17-2024 Miscellaneous Notes* Telephone Encounter - Josselyn [...] Gustavo calls requesting a return call at [phone]. Chely Nicolas RN * Telephone Encounter - Josselyn Mayer APRN.CNP - 07/30/2024 10:34 AM EDT Attempted to contact patient and his family to update him on the treatment plan. Left voicemail requesting phone call back. Josselyn Mayer APRN.CNP documented in this encounterSt. Anthony'S Hospital10-16-2024 Telephone encounter Note * Telephone Encounter - Chely Nicolas RN - 07/31/2024 3:53 PM EDT Gustavo calls requesting a return call at [phone]. Chely Nicolas RN [facility]10-15-2024 NoteHNO ID: [id number] Author: JOSSELYN MAYER APRN.CNP Service: ? Author [...] patient by our office. Josselyn Mayer APRN.CNP 07/30/2024[facility]10-15-2024 History of Present illness Narrative* Josselyn [...] Josselyn Mayer APRN.CNP 07/30/2024 documented in this encounterSt. Anthony'S Hospital10-15-2024 Telephone encounter Note * Telephone Encounter - Josselyn Mayer APRN.CNP - 07/30/2024 10:34 AM EDT Attempted to contact patient and his family to update him on the treatment plan. Left voicemail requesting phone call back. Josselyn Mayer APRN.CNP [facility]10-11-2024 Telephone encounter Note* Telephone Encounter - Kamran Ayon [facility] - 07/26/2024 4:22 PM EDT Images from [...] to test INR. Kamran Ayon PharmD, BCPS [facility]10-11-2024 Miscellaneous Notes* Telephone Encounter - Kamran [...] BCPS * Telephone Encounter - Jimmy Carrizales [facility] - 07/25/2024 11:45 AM EDT Left voice message asking patient at [phone] (home) or daughter January to call the Anticoagulation Clinic at [phone] re: patient recenly off warfarin for heart cath on 07/23/24. Patient was prescribed Lovenox 100 mg sq Once daily by cardiology. Next Action for Anti coag Management: TM Remote Jimmy Carrizales PharmD., CACP documented in this encounterSt. Anthony'S Hospital10-10-2024 Telephone encounter Note * Telephone Encounter - Jimmy Carrizales RPh - 07/25/2024 11:45 AM EDT Left voice message asking patient at [phone] (home) or daughter January to call the Anticoagulation Clinic at [phone] re: patient recenly off warfarin for heart cath on 07/23/24. Patient was prescribed Lovenox 100 mg sq Once daily by cardiology. Next Action for Anti coag Management: TM Remote Jimmy Carrizales PharmD., CACP [facility]10-08-2024 NoteHNO ID: [id number] Author: PAM REDDY MD Service: Cardiovascular Surgery [...] the groin with 1% lidocaine. A pre-flushed 6-Greek sheath was inserted into the femoral artery [...] Mitchell DATE: July 23, 2024 TIME: 10:19 [facility] History of Present illness Narrative* Jeremías Lofton, [...] PATIENT PRESENTS WITH AN IMPLANTABLE OR ATTACHED LABORATORY EQUIPMENT CLEANER: No ALLERGIES: Reviewed and unchanged CONTRAST ALLERGY: [...] 2024 TIME: 9:13 AM documented in this encounterSt. Anthony'S Hospital10-08-2024 NoteHNO ID: [id number] Author: JEREMÍAS LOFTON RT (R) Service: Radiology [...] PATIENT PRESENTS WITH AN IMPLANTABLE OR ATTACHED LABORATORY EQUIPMENT CLEANER: No ALLERGIES: Reviewed and unchanged CONTRAST ALLERGY: [...] Mitchell DATE: July 23, 2024 TIME: 9:13 [facility]09-30-2024 Telephone encounter Note* Telephone Encounter - Josselyn Barrow LPN - 07/15/2024 3:19 PM EDT Notified Gustavo. [facility]09-30-2024 Miscellaneous Notes* Telephone Encounter - Josselyn [...] proceeding. Teresa Alexis, RN documented in this encounterSt. Anthony'S Hospital09-30-2024 Telephone encounter Note * Telephone Encounter - Magdalena Laird LPN - 07/15/2024 3:15 PM EDT Son notified of results and provider message. Magdalena Laird LPN [facility]09-30-2024 Miscellaneous Notes* Telephone Encounter - Magdalena [...] does off of meds. documented in this encounterSt. Anthony'S Hospital09-30-2024 Telephone encounter Note * Telephone Encounter - Guanakito Reno MD - 07/15/2024 2:40 PM EDT Agree. As long as he is aware. [facility]09-30-2024 Telephone encounter Note* Telephone Encounter - [...] like PCP recommendationbefore proceeding. Teresa Alexis, RN [facility]09-30-2024 Telephone encounter Note* Telephone Encounter - Carolina Alba MA - 07/15/2024 2:14 PM EDT Message left for return call. Carolina Alba MA [facility]09-30-2024 Telephone encounter Note* Telephone Encounter - Guanakito Reno MD - 07/15/2024 1:04 PM EDT Kidney function and anemia are stable. See nephrology as we had recommended. Sugars are overall notbad. Hold on amaryl. Call sugars in two weeks to see how he does off of meds. [facility]09-30-2024 NoteHNO ID: [id number] Author: GUANAKITO RENO MD Service: ? Author Type: Physician Type: Progress Notes Filed: 07/15/2024 08:05 Note Text: Apparently second visit created in error.[facility]09-30-2024 History of Present illness Narrative* Guanakito Reno MD - 07/15/2024 8:03 AM EDT Apparently second visit created in error. documented in this encounterSt. Anthony'S Hospital09-27-2024 Telephone encounter Note * Telephone Encounter - Guanakito Reno MD - 07/12/2024 12:49 PM EDT Noted. Thank you [facility]09-27-2024 Miscellaneous Notes* Telephone Encounter - Guanakito Reno MD - 07/12/2024 12:49 PM EDT Noted. Thank you * Telephone Encounter - Art Estes - 07/12/2024 12:34 PM EDT Attempted to find sooner apt time for patients nephrology apt, no sooner times within [facility] facilities that are faster than patients [facility] apt. documented in this encounterSt. Anthony'S Hospital09-27-2024 Telephone encounter Note * Telephone Encounter - Art Estes - 07/12/2024 12:34 PM EDT Attempted to find sooner apt time for patients nephrology apt, no sooner times within [facility] facilities that are faster than patients [facility] apt. [facility]09-27-2024 NoteHNO ID: [id number] Author: GUANAKITO RENO MD Service: ? Author [...] or worsening shortness of breath. Currently wearing [employer] heart monitor. Placed yesterday. Follows with Cardiology. [...] 250.00. Insulin: No [facility]OUCH DELICA[facility] blood sugar(s) one time [...] Vaping status: Never Used (more content not included)...[facility]09-27-2024 History of Present illness Narrative* Guanakito Reno MD - 07/12/2024 11:22 AM EDT Patient presents with: Follow Up HPI: Patient presents today for office visit for follow up. We had referred him to nephrology in March for ckd and anemia of ckd. Has stopped HCTZ. Actos. Melatonin. Still with pitting edema. Denies chest pain. No new or worsening shortness of breath. Currently wearing [employer] heart monitor. Placed yesterday. Follows with Cardiology. [...] 250.00. Insulin: No Lancets (ONE TOUCH DELICA) [facility] lancets Test blood sugar(s) one [...] ICD10: G30.9, F01.50, F02.80 - stable. 10. 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 Guanakito Reno MD documented in this encounterSt. Anthony'S Hospital09-25-2024 NoteHNO ID: [id number] Author: PAM REDDY MD Service: ? Author Type: Physician Type: Progress Notes Filed: 07/10/2024 15:17 Note Text: Pam Reddy MD Interventional Cardiology [address] [place] [address] Chief Complaint Patient presents with: Aortic Stenosis: [...] with significant dementia. Patient follow-up at the [facility] 6 months ago he was completely asymptomatic [...] 8 hours as needed. blood sugar diagnostic ([employer] ULTRA TEST) test strip Test blood sugar(s) one times daily. Dx: 250.00. Insulin: No 150 Strip 3 Lancets (ONE TOUCH DELICA) Misc lancets Test blood sugar(s) one time chichi (more content not included)...[facility]09-25-2024 History of Present illness Narrative* Pam Reddy MD - 07/10/2024 3:07 PM EDT Images from the original note were not included. Pam Reddy MD Interventional Cardiology [address] [place] [address] Chief Complaint Patient presents with: Aortic Stenosis: [...] with significant dementia. Patient follow-up at the [place] office 6 months ago he was completely [...] 150 Strip 3 Lancets (ONE TOUCH DELICA) [facility] lancets Test blood sugar(s) one [...] CTA CHEST (GATED) WO/W IVCON - CARDIAC REACTOR SERVICE OPERATOR ORDER - EXTENDED WEAR CCIE PATCH - COMPLETE BLOOD COUNT - BASIC [...] to correct any errors. * Josselyn Mayer, BULK PL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 - 07/10/2024 9:39 AM EDT Procedure Type: [...] 10, 2024 TIME: 8:06 AM PAGER/CONTACT #: [phone] documented in this encounterSt. Anthony'S Hospital09-25-2024 Nurse Note* Judy Díaz Service Unit Operator [employer] - 07/10/2024 10:00 AM EDT Applied 14 day extended wear EKG patch. Pt verbalized understanding of monitor use / diary. [facility]09-25-20[facility] Nurse Note* Judy Díaz Service Unit Operator [employer] - 07/10/2024 10:00 AM EDT Applied 14 day extended wear EKG patch. Pt verbalized understanding of monitor use / diary. documented in this encounterSt. Anthony'S Hospital09-25-2024 NoteHNO ID: [id number] Author: JOSSELYN MAYER APRN.CNP Service: ? Author Type: Nurse Practitioner Type: Progress Notes Filed: 07/10/2024 15:17 Note Text: Procedure Type: Isolated AVR Perioperative Outcome Estimate % Operative Mortality 9.12% Morbidity AND Mortality 21.6% Stroke 2% Renal Failure 20.9% Reoperation 5.43% Prolonged Ventilation 9.19% Deep Sternal Wound Infection 0.103% Long Hospital Stay (>14 days) 13.4% Short Hospital Stay (<6 days)* 15.7% Josselyn Mayer APRN.[facility]09-25-2024 Instructions* Patient Instructions* Josselyn Mayer APRN.AIR ROUTE TRAFFIC CONTROLLER - 07/10/2024 8:55 AM EDT Images from [...] process is complete. The content on the [employer] website is not intended nor recommended as a substitute for medical advice, diagnosis, or treatment. Always seek the advice of your own physician or other qualified healthcare professional regarding any medical questions or conditions.. 2016 [employer]. All rights reserved. Topic 80802 Version 5.0 documented in this encounterSt. Anthony'S Hospital09-25-2024 NoteHNO ID: [id number] Author: CAL THACKER MD Service: ? Author Type: Physician Type: Progress Notes Filed: 07/10/2024 09:32 Note Text: PRIMARY CARE PHYSICIAN: Guanakito Reno [address] [place] [address] Subjective Chief Complaint Patient presents with: Aortic [...] deficit. Medications Current Out (more content not included)...[facility]09-25-2024 History of Present illness Narrative* Cal Thacker MD - 07/10/2024 8:37 AM EDT PRIMARY CARE PHYSICIAN: Guanakito Reno [address] [place] [address] Subjective Chief Complaint Patient presents with: Aortic [...] 150 Strip 3 Lancets (ONE TOUCH DELICA) [facility] lancets Test blood sugar(s) one [...] also refer to vascular surgery and a refinery operator helper cracking unit for further evaluation. Family will discuss how [...] 10, 2024 TIME: 8:13 AM PAGER/CONTACT #: [phone] documented in this encounterSt. Anthony'S Hospital09-25-2024 NoteHNO ID: [id number] Author: BI CANTU LPN Service: ? Author [...] 10, 2024 TIME: 8:13 AM PAGER/CONTACT #: [phone] [facility] Health Care09-25-2024 Note HNO ID: [id number] Author: BI CANTU LPN Service: ? Author [...] 10, 2024 TIME: 8:06 AM PAGER/CONTACT #: [phone] [facility] Health Care09-20-2024 Telephone encounter Note* Telephone Encounter - Annamarie Garcia [facility] - 07/05/2024 9:43 AM EDT [facility] Ambulatory Pharmacy Anticoagulation Clinic Anticoagulation Episode Summary Anticoagulation Care Providers Provider Role Specialty Phone number Guanakito Reno MD [facility] [phone] Cal Mitchell is a 79 year old [...] 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: senior care (current) use of anticoagulants Paroxysmal atrial fibrillation (hcc) Anticoagulation Episode Summary Current INR goal: 2.0-3.0 Assessment: INR result of 2.2 is therapeutic Plan: Current Warfarin Dosing As of 07/05/2024 Full warfarin instructions: 5 mg every day Left voice message And sent Vindihart message Advised patient to continue current weekly dose as noted above Next home INR check scheduled on 07/18/2024 Annamarie Garcia RPh Clinical Pharmacist, Pharmacy Anticoagulation Clinic Pharmacy Anticoagulation Clinic Pager: [phone]. [facility]09-20-2024 Miscellaneous Notes* Telephone Encounter - Annamarie Garcia RPh - 07/05/2024 9:[address] 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 documented in this encounterSt. Anthony'S Hospital09-03-2024 Telephone encounter Note * Telephone Encounter - Jimmy Carrizales [facility] - 06/18/2024 8:[address] 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 [facility]09-03-2024 Miscellaneous Notes* Telephone Encounter - Jimmy Carrizales RPh - 06/18/2024 8:[address] [facility] Anticoagulation Clinic Anticoagulation Episode Summary Anticoagulation Care Providers Provider Role Specialty Phone number Guanakito Reno MD [facility] [phone] Cal Mitchell is a 78 year old [...] 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: senior care (current) use of anticoagulants Paroxysmal atrial fibrillation [...] Pharmacy Anticoagulation Clinic Pharmacy Anticoagulation Clinic Pager: [phone]. documented in this encounterSt. Anthony'S Hospital08-22-2024 Instructions* Patient Instructions* Carolina Landeros APRN.CNP - 06/06/2024 12:10 PM EDT 1) Stop Actos 2) Stop melatonin 3) Try to increase protein 4) Follow up in 1 months documented in this encounterSt. Anthony'S Hospital08-22-2024 NoteHNO ID: [id number] Author: CAROLINA LANDEROS APRN.CNP Service: ? Author [...] cardiovascular system 10/20: Peripheral vascular disease, unspecified [facility] Comment: R carotid 04/18: Unspecified essential hypertension [...] 250.00. Insulin: No Lancets (ONE TOUCH DELICA) [facility] lancets Test blood sugar(s) one [...] adenopathy. Skin: General: Sk (more content not included)...[facility]08-22-2024 History of Present illness Narrative* Carolina Landeros APRN.[facility] - 06/06/2024 11:39 AM EDT This [...] improvement. Carolina Landeros APRN.CNP documented in this encounterSt. Anthony'S Hospital08-21-2024 Telephone encounter Note * Telephone Encounter - Josselyn Barrow LPN - 06/05/2024 4:53 PM EDT Attempted to reach daughter and her is already here with patient. [facility]08-21-2024 Miscellaneous Notes* Telephone Encounter - Josselyn Barrow LPN - 06/05/2024 4:53 PM EDT Attempted to reach daughter and her is already here with patient. * Telephone Encounter - Corrina Lennon APRN.CNP - 06/05/2024 4:46 PM EDT I am doubtful that [facility] care will address any changes that will [...] Khan? Corrina Lennon APRN.CNP documented in this encounterSt. Anthony'S Hospital08-21-2024 Telephone encounter Note * Telephone Encounter [...] we can get him scheduled. Corrina Lennon APRN.AIR ROUTE TRAFFIC CONTROLLER [facility]08-21-2024 NoteHNO ID: [id number] Author: VALERIE GRUBER APRN.CNP Service: ? Author Type: Nurse Practitioner Type: Progress Notes Filed: 06/05/2024 17:16 Note Text: This note was created using Quanterix. Subjective Cal Mitchell is a 78 year old male. 78 year old male with PMH HTN, hyperlipidemia, afib, PAD, CKD, DM presents for medical complaints. Acute onset of symptoms was over a week ago Patients daughter had sent in a [employer] message on 06/03/24. At that time she [...] is provided by the patient. No english language learner tutor was used. Edema This is a new [...] Negative for color change (more content not included)...[facility]08-21-2024 History of Present illness Narrative* Valerie Gruber APRN.AIR ROUTE TRAFFIC CONTROLLER - 06/05/2024 4:45 PM EDT This note was created using Lozor[employer]. Subjective Cal Mitchell is a 78 year old male. 78 year old male with PMH HTN, hyperlipidemia, afib, PAD, CKD, DM presents for medical complaints. Acute onset of symptoms was over a week ago Patients daughter had sent in a [employer] message on 06/03/24. At that time she [...] is provided by the patient. No english language learner tutor was used. Edema This is a new [...] change medicines related to chronic conditions. Reviewed [employer]uy[employer] messages where patient was requested to be seen in person by PCP Appt made for AM 06/06/24 Valerie Gruber APRN.KOURTNEY documented in this encounterSt. Anthony'S Hospital08-21-2024 Telephone encounter Note * Telephone Encounter [...] daughter Elly or son-in-law Gustavo. Thank you. [facility]08-19-2024 Telephone encounter Note* Telephone Encounter - Corrina Lennon APRN.CNP - 06/03/2024 7:42 PM EDT We should probably have him in so we can see his legs and check his blood pressure. Please help schedule. Can we also get him contact info for nephrology. If he is looking for carole, it would probably beDrTitus Khan? Corrina Lennon APRN.KOURTNEY [facility]08-08-2024 Telephone encounter Note* Telephone Encounter - Chely Nicolas RN - 05/23/2024 9:49 AM EDT Images from the original note were not included. Gladys Bella You31 minutes ago (9:17 AM) TR Good Morning. Pt is scheduled for Valve Clinic on 07/10/24 at 8:30 [address]. [facility]08-08-2024 Miscellaneous Notes* Telephone Encounter - Chely [...] PM EDT ----- Message from Josselyn Mayer APRN.AIR ROUTE TRAFFIC CONTROLLER sent at 05/20/2024 2:28 PM EDT ----- Creatinine 2.3. Per chart review he was asymptomatic but had an episode of syncope. Do you want work up first or just valve clinic? Josselyn ----- Message ----- From: Pam Reddy MD Sent: 05/18/2024 8:44 AM EDT To: Chely Nicolas RN; Josselyn Mayer APRN.AIR ROUTE TRAFFIC CONTROLLER Aortic stenosis need to establish care at the valve clinic [facility] * Telephone Encounter - Chely Nicolas RN [...] to establish care at the valve clinic [facility] documented in this encounterSt. Anthony'S Hospital08-08-2024 Telephone encounter Note * Telephone Encounter - Chely Nicolas RN - 05/23/2024 8:27 AM EDT Left message on voicemail requesting pt return call for test results and MD recommendations. Officephone number provided. Chely Nicolas RN [facility]08-08-2024 Telephone encounter Note* Telephone Encounter - Chely Nicolas RN - 05/23/2024 8:26 AM EDT Images from the original note were not included. Pam Reddy MD You; Josselyn Mayer, BULK PLANT SUPERVISOR.CNP15 hours ago (4:42 PM) Let's see at the valve clinic [facility]08-06-2024 Telephone encounter Note* Telephone Encounter - Wilfred June R - 05/21/2024 3:10 PM EDT Patient's son in law called in to confirm appointment with Dr. Reddy. Thanks Claritza Smith Wilfred [facility]08-06-2024 Miscellaneous Notes* Telephone Encounter - Wilrfed June R - 05/21/2024 3:10 PM EDT [...] you, Josselyn Mayer APRN.CNP documented in this encounterSt. Anthony'S Hospital08-05-2024 Telephone encounter Note * Telephone Encounter [...] to establish care at the valve clinic [facility]08-05-2024 Telephone encounter Note* Telephone Encounter - [...] with Nephrologists. Thank you, Josselyn Mayer APRN.KOURTNEY [facility] Work Phone: [phone] Telephone encounter Note* Telephone Encounter - Chely Nicolas RN - 05/20/2024 9:59 AM EDT Left message on voicemail requesting pt return call for test results. Office phone number provided. Chely Nicolas RN [facility]08-05-2024 Telephone encounter Note* Telephone Encounter - Chely Nicolas RN - 05/20/2024 9:58 AM EDT ----- Message from Pam Reddy MD sent at 05/18/2024 8:44 AM EDT ----- Aortic stenosis need to establish care at the valve clinic [facility]08-02-2024 Telephone encounter Note* Telephone Encounter - Dorothy Sainz, [facility] - 05/17/2024 9:[address] [facility] Ambulatory Pharmacy Anticoagulation Clinic Anticoagulation Episode Summary Anticoagulation Care Providers Provider Role Specialty Phone number Guanakito Reno MD [facility] [phone] Cal Mitchell is a 78 year old [...] 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: senior care (current) use of anticoagulants Paroxysmal atrial fibrillation (hcc) Anticoagulation Episode Summary Current INR goal: 2.0-3.0 Assessment: INR result of 2.8is therapeutic Plan: Current Warfarin Dosing As of 05/17/2024 Full warfarin instructions: 5 mg every day Sent [employer]ana message Advised patient to continue current weekly dose as noted above Next home INR check scheduled on 05/30/2024 Dorothy Sainz RPh Clinical Pharmacist, Pharmacy Anticoagulation Clinic Pharmacy Anticoagulation Clinic Pager: [phone]. [facility]08-02-2024 Miscellaneous Notes* Telephone Encounter - Dorothy Sainz RPh - 05/17/2024 9:[address] 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 documented in this encounterSt. Anthony'S Hospital07-22-2024 Instructions* Patient Instructions* Corrina Lennon APRN.CNP - 05/06/2024 6:38 PM EDT Continue to try to get the stool sample. Continue the same medication. Schedule with nephrology (kidney doctor). Recheck with Dr. Reno in 2 months. documented in this encounterSt. Anthony'S Hospital07-22-2024 History of Present illness Narrative* Corrina [...] a fall. Was outside and grabbed the [id number] and shook it for a few seconds [...] 250.00. Insulin: No Lancets (ONE TOUCH DELICA) [facility] lancets Test blood sugar(s) one [...] as needed for worsening/no improvement. Corrina Lennon APRN.AIR ROUTE TRAFFIC CONTROLLER documented in this encounterSt. Anthony'S Hospital07-18-2024 History of Present illness Narrative* Jody [...] PATIENT PRESENTS WITH AN IMPLANTABLE OR ATTACHED LABORATORY EQUIPMENT CLEANER: No RADIOLOGY DEPARTMENT: Ultrasound PERIPHERAL IV DATA: Not applicable SIGNED BY: Jody Queen RDMS May 02, 2024 10:49 AM documented in this encounterSt. Anthony'S Hospital07-15-2024 Telephone encounter Note * Telephone Encounter - Stephany Graves MA - 04/29/2024 9:48 AM EDT Spoke with daughter. She stated she was suppose to call the local lodging facilities attendant but didn't have the number and then forgot to call office to get it. Also she is not able to log into the [employer] account, states she forgot password. I have sent number for Dr. Khan to pt home along with mychart number so she can get mychart account fixed and call to set up his appt with lodging facilities attendant. Pt needs refill of Lipitor sent to [facility]. Stephany Graves MA [facility]07-15-2024 Miscellaneous Notes* Telephone Encounter - Stephany Graves MA - 04/29/2024 9:48 AM EDT Spoke with daughter. She stated she was suppose to call the local lodging facilities attendant but didn't have the number and then forgot to call office to get it. Also she is not able to log into the [employer] account, states she forgot password. I have sent number for Dr. Khan to pt home along with mychart number so she can get mychart account fixed and call to set up his appt with lodging facilities attendant. Pt needs refill of Lipitor sent to [...] nephrology? Was ordered previously. documented in this encounterSt. Anthony'S Hospital07-10-2024 Telephone encounter Note * Telephone Encounter - Mason Ruthie, [facility] - 04/24/2024 9:[address] [facility]ulatory Pharm[facility] Anticoagulation Clinic Anticoagulation Episode Summary Anticoagulation Care Providers Provider Role Specialty Phone number Guanakito Reno MD [facility] Medicine [phone] Cal Mitchell is a 78 year old [...] 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: senior care (current) use of anticoagulants Paroxysmal atrial fibrillation (hcc) Anticoagulation Episode Summary Current INR goal: 2.0-3.0 Assessment: INR result of 2.7 is therapeutic Plan: Current Warfarin Dosing As of 04/24/2024 Full warfarin instructions: 5 mg every day Sent Cuyana message Advised patient to continue current weekly dose as noted above Next home INR check scheduled on 05/07/2024 Ruthie Cuevas RPh Clinical Pharmacist, Pharmacy Anticoagulation Clinic Pharmacy Anticoagulation Clinic Pager: [phone]. [facility]07-10-2024 Miscellaneous Notes* Telephone Encounter - Ruthie Cuevas RPh - 04/24/2024 9:[address] 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 documented in this encounterSt. Anthony'S Hospital07-05-2024 Telephone encounter Note * Telephone Encounter - Geovanna Hinds MA - 04/19/2024 4:14 PM EDT Left message for patient to return call. Geovanna Hinds Ma [facility]07-05-2024 Telephone encounter Note* Telephone Encounter - Guanakito Reno MD - 04/19/2024 3:46 PM EDT Anemia is stable. I still need an ifobt done since he is on blood thinners to rule out gi blood loss. It may well be related to his kidneys. They are stable but worse. Did he get set up with nephrology? Was ordered previously. [facility]06-24-[facility]24 Telephone encounter Note* Telephone Encounter - Corrina Lennon APRN.AIR ROUTE TRAFFIC CONTROLLER - 04/08/2024 3:45 PM EDT Pt aware. Corrina Lennon APRN.KOURTNEY [facility]06-24-2024 Miscellaneous Notes* Telephone Encounter - Corrina [...] two weeks. See nephrology documented in this encounterSt. Anthony'S Hospital06-24-2024 Telephone encounter Note * Telephone Encounter - Alejandro Molina RPh - 04/08/2024 3:36 PM EDT [facility] Pharmacy Anticoagulation Clinic Anticoagulation Episode Summary Anticoagulation Care Providers Provider Role Specialty Phone number Guanakito Reno MD Responsible Family Medicine [phone] Cal Mitchell is a 78 year old [...] Pharmacy Anticoagulation Clinic Pharmacy Anticoagulation Clinic Pager: [phone]. [facility]06-24-2024 Miscellaneous Notes* Telephone Encounter - Alejandro Molina RPh - 04/08/2024 3:36 PM EDT [facility] Pharmacy Anticoagulation Clinic Anticoagulation Episode Summary Anticoagulation Care Providers Provider Role Specialty Phone number Guanakito Reno MD Responsible [facility] [phone] Cal Mitchell is a 78 year old [...] Pharmacy Anticoagulation Clinic Pharmacy Anticoagulation Clinic Pager: [phone]. documented in this encounterSt. Anthony'S Hospital06-24-2024 Instructions* Patient Instructions* Corrina Lennon APRN.CNP - 04/08/2024 3:11 PM EDT Continue the same medication. Get the repeat labs in 2 weeks. Get the echo, carotid ultrasound, kidney ultrasound as planned. Schedule w/ nephrology. Schedule back in 1 month for recheck. documented in this encounterSt. Anthony'S Hospital06-24-2024 History of Present illness Narrative* Corrina [...] 250.00. Insulin: No Lancets (ONE TOUCH DELICA) [facility] lancets Test blood sugar(s) one [...] agrees with the plan. documented in this encounterSt. Anthony'S Hospital06-22-2024 Telephone encounter Note * Telephone Encounter [...] Diana Jimenez PharmD, MPH Anticoagulation Clinic Pharmacist [phone] [facility]06-22-2024 Miscellaneous Notes* Telephone Encounter - Nabila [...] Diana Jimenez PharmD, MPH Anticoagulation Clinic Pharmacist [phone] * Telephone Encounter - Nabila Jimenez RPh - 04/06/2024 3:49 PM EDT Called and LM for patient and sent MyChart referenced in (though patient has not logged into MC[facility]t since December). Patient was asked to call/page PAC at next convenience to confirm receipt of message Will follow up on Monday and expect next INR on that date Diana Jimenez PharmD, MPH Anticoagulation Clinic Pharmacist [phone] * Telephone Encounter - Yamilka Heath RN - 04/04/2024 1:14 PM EDT Alana guzman Chris calling in INR result today (04/04.) result has been addressed below. Apurva Heath RN Pharmacy Anticoagulation Clinic * Telephone Encounter - Jimmy Carrizales, [facility] - 04/04/2024 12:[address] 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 documented in this encounterSt. Anthony'S Hospital06-22-2024 Telephone encounter Note * Telephone Encounter - Nabila Jimenez RPh - 04/06/2024 3:49 PM EDT Called and LM for patient and sent [employer] referenced in VM (though patient has not logged into [employer] since December). Patient was asked to call/page PAC at next convenience to confirm receipt of message Will follow up on Monday and expect next INR on that date Diana Jimenez, SamirD, MPH Anticoagulation Clinic Pharmacist [phone] [facility]06-21-2024 Telephone encounter Note* Telephone Encounter - Josselyn Barrow LPN - 04/05/2024 4:25 PM EDT Has visit scheduled with Corrina on Monday will route to their pool. If he keeps that appt can you please close for us? Thank you. [facility]06-21-2024 Telephone encounter Note* Telephone Encounter - Carolina Alba MA - 04/05/2024 4:19 PM EDT No answer. Left detailed message stating we were calling in regards to results and needing to discuss a few things. Advised to return call. Carolina Alba MA [facility]06-21-2024 Telephone encounter Note* Telephone Encounter - Jonelle Worley LPN - 04/05/2024 10:41 AM EDT Phoned patient left message to return call and ask to speak to a nurse. [facility]06-[facility] Telephone encounter Note* Telephone Encounter - Guanakito Reno MD - 04/05/2024 10:21 AM EDT Anemia is stable. May be related to his kidneys. Renal function continues to be slightly worse. Get renal us as ordered. Check ifobt. Recheck labs in two weeks. See nephrology [facility]06-[facility] Telephone encounter Note* Telephone Encounter - Yamilka Heath RN - 04/04/2024 1:14 PM EDT Alana Perez calling in INR result today (04/04.) result has been addressed below. Apurva Heath RN Pharmacy Anticoagulation Clinic [facility]06-20-2024 Telephone encounter Note* Telephone Encounter - Jimmy Carrizales [facility] - 04/04/2024 12:[address] 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 [facility]06-11-2024 Instructions* Patient Instructions* Guanakito Reno MD - 03/26/2024 5:00 PM EDT Stop lisinopril hctz Start lisinopril. Call if any shortness of breath or edema. Weigh daily. Call us if you gain more than 3-4 lbs in a 24 hour period Get carotid ultrasound Recheck labs end of this week or early next. documented in this encounterSt. Anthony'S Hospital06-11-2024 History of Present illness Narrative* Guanakito [...] mg daily. Needs 30 day supply to [facility] while waiting for shipment from [employer]. No myalgias HTN: Continues on Zestoretic 20-12.5 [...] 8 hours as needed. blood sugar diagnostic ([facility] ULTRA TEST) test strip Test blood sugar(s) [...] ICD10: G30.9, F01.50, F02.80 - stable. 9. senior care (current) use of anticoagulants - ICD9: V58.61, [...] - IMMUNOCHEMICAL FECAL OCCULT BLOOD TEST Guanakito eRno MD Recheck in two weeks or prn. documented in this encounterSt. Anthony'S Hospital06-10-2024 History of Present illness Narrative* Pam Reddy MD - 03/25/2024 5:19 PM EDT Images from the original note were not included. Pam Reddy MD Interventional Cardiology [address] [place] [address] [phone] Chief Complaint Patient presents with: Follow Up [...] 150 Strip 3 Lancets (ONE TOUCH DELICA) [facility] lancets Test blood sugar(s) one [...] to correct any errors. documented in this encounterSt. Anthony'S Hospital05-24-2024 History of Present illness Narrative* Melania [...] of . Patient Attributed To: QAE Payer: [facility] Action Taken: Data submitted to AtriC[employer] message to patient Notation made to upcoming appointment notes requesting provider follow up Contact made with patient: No, Chart review only. Melania Galindo RN documented in this encounterSt. Anthony'S Hospital05-23-2024 Telephone encounter Note * Telephone Encounter - Jimmy Carrizales, [facility] - 03/07/2024 11:[address] 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 [facility]24 Miscellaneous Notes* Telephone Encounter - Jimmy Carrizales RPh - 03/07/2024 11:[address] 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 documented in this encounterSt. Anthony'S Hospital05-01-2024 Telephone encounter Note * Telephone Encounter - Ruthie Cuevas RP - 02/14/2024 9:[address] [facility] Ambulatory [facility]acy Anticoagulation Clinic Anticoagulation Episode Summary Anticoagulation Care Providers Provider Role Specialty Phone number Guanakito Reno MD [facility] Family Medicine [phone] Cal Mitchell is a 78 year old [...] ALLERGIES No Known Allergies Indication for Warfarin: senior care (current) use of anticoagulants Paroxysmal atrial fibrillation [...] Pharmacy Anticoagulation Clinic Pharmacy Anticoagulation Clinic Pager: [phone]. [facility]05-01-[facility]24 Miscellaneous Notes* Telephone Encounter - Ruthie Cuevas RPh - 02/14/2024 9:[address] 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 documented in this encounterSt. Anthony'S Hospital04-03-2024 Miscellaneous Notes* Telephone Encounter - Darrell [...] Thank you. Betzy Colvin. documented in this encounterSt. Anthony'S Hospital04-03-2024 Miscellaneous Notes* Telephone Encounter - Betzy Colvin - 01/17/2024 3:22 PM EDT Patient's daughter calling to request medication that is on patient list pioglitazone (ACTOS) 15 mg tablet Please send to [facility]. documented in this encounterSt. Anthony'S Hospital04-01-2024 Miscellaneous Notes* Telephone Encounter - Alejandro Molina RPh - 01/15/2024 10:[address] [facility] Ambulatory [facility]agulation Clinic Anticoagulation Episode Summary Anticoagulation Care Providers Provider Role Specialty Phone number Guanakito Reno MD [facility] [phone] Cal Mitchell is a 78 year old [...] instructed to call [facility] at [phone] with any questionsor concerns. Alejandro Molina RPh Clinical Pharmacist, Pharmacy Anticoagulation Clinic Pharmacy Anticoagulation Clinic Pager: [phone] documented in this encounterSt. Anthony'S Hospital03-08-2024 Instructions* Patient Instructions* Carolina Landeros APRN.CNS - 12/22/2023 3:30 PM EST 1) Telfa dressing change daily 2) Letter for [facility] 3) Follow up in 4) Melatonin 3mg qhs and may repeat once through night if needed documented in this encounterSt. Anthony'S Hospital03-08-2024 History of Present illness Narrative* Carolina [...] 250.00. Insulin: No Lancets (ONE TOUCH DELICA) [facility] lancets Test blood sugar(s) one [...] agrees with the plan. documented in this encounterSt. Anthony'S Hospital03-07-2024 Miscellaneous Notes* Telephone Encounter - Teresa [...] 7. TETANUS: 04/22/21 Protocols used: Cuts and [id number] documented in this encounterSt. Anthony'S Hospital03-07-2024 Miscellaneous Notes* Telephone Encounter - Jimmy Carrizales, [facility] - 12/21/2023 9:[address] 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 documented in this encounterSt. Anthony'S Hospital02-19-2024 Miscellaneous Notes* Telephone Encounter - Daniel JansenAssistant Community ManagerAshley Granados - 12/04/2023 11:53 AM EST PATIENT CALL Received call from Summer with [facility] INR to report home meter result for patient. [facility] hasalready addressed this result (see below); nothing further needed at this time. Ashley Sanchez CPhT (Manager Transfusion) Pharmacy Anticoagulation Clinic * Telephone Encounter - Alejandro Molina [facility] - 12/04/2023 9:[address] [facility] Ambulatory [facility]agulation Clinic Anticoagulation Episode Summary Anticoagulation Care Providers Provider Role Specialty Phone number Guanakito Reno MD [facility] [phone] Cal Mitchell is a 78 year old [...] instructed to call [facility] at [phone] with any questionsor concerns. Alejandro Molina RPh Clinical Pharmacist, Pharmacy Anticoagulation Clinic Pharmacy Anticoagulation Clinic Pager: [phone] documented in this encounterSt. Anthony'S Hospital12-06-2023 Miscellaneous Notes* Telephone Encounter - Ruthie Cuevas RPh - 09/20/2023 1:[address] [facility] Ambulatory [facility]acy Anticoagulation Clinic Anticoagulation Episode Summary Anticoagulation Care Providers Provider Role Specialty Phone number Guanakito Reno MD [facility] [phone] Cal Mitchell is a 78 year old [...] ALLERGIES No Known Allergies Indication for Warfarin: senior care (current) use of anticoagulants Paroxysmal atrial fibrillation [...] Pharmacy Anticoagulation Clinic Pharmacy Anticoagulation Clinic Pager: [phone]. documented in this encounterSt. Anthony'S Hospital11-21-2023 History of Present illness Narrative* Mouna Vallecillo RN - 09/05/2023 1:48 PM ESTSummary: Medication Adherence review per request of payer ACM LUIS RN Action/FYI: Medication Adherence review completed per request of payer. NO PROVIDER ACTION REQUIRED Patient identified by name and date of . Patient Attributed To: [facility] Payer: [facility] Reason for review or outreach: Medication Adherence Medication Adherence Review Details: Diabetes Summary / Findings: GLIMEPIRIDE -- Refill Due - 07/18/2023 ATORVASTATIN -- Refill Due - 08/21/2023 Pharmacy - [facility] - Action Taken: Data submitted to AtriCure message to patient Contact made with patient: No, Chart review only. documented in this encounterSt. Anthony'S Hospital11-07-2023 Miscellaneous Notes* Telephone Encounter - Twin Cole RPh - 08/22/2023 9:[address] [facility] Ambulatory [facility] Anticoagulation Clinic Anticoagulation Episode Summary Anticoagulation Care Providers Provider Role Specialty Phone number Guanakito Reno MD [facility] [phone] Cal Mitchell is a 78 year old [...] Pharmacy Anticoagulation Clinic Pharmacy Anticoagulation Clinic Pager: [phone]. documented in this encounterSt. Anthony'S Hospital11-01-2023 Miscellaneous Notes* Telephone Encounter - Gerardo [...] states one. Please phone Elly with reply: [phone] Copied and pasted provider's message from previous encounter: Sugars are really good. Stop his glimepiride. Call sugars in two weeks. His kidney function is worse, recheck labs in one . Make sure drinking adequate fluids. documented in this encounterSt. Anthony'S Hospital10-31-2023 Miscellaneous Notes* Telephone Encounter - Niels [...] sure drinking adequate fluids. documented in this encounterSt. Anthony'S Hospital10-30-2023 History of Present illness Narrative* Guanakito [...] YR, HIGH DOSE, QUADRIVALENT (FLUZONE HIGH-DOSE) - [email or web address] COVID-19 VACCINE (2022- SEASON) AGE 12+ YR [...] N18.31 Guanakito Reno MD documented in this encounterSt. Anthony'S Hospital10-11-2023 Miscellaneous Notes* Telephone Encounter - Ruthie Cuevas [facility] - 07/26/2023 4:[address] [facility] Ambulatory Pharmacy Anticoagulation Clinic Anticoagulation Episode Summary Anticoagulation Care Providers Provider Role Specialty Phone number Guanakito Reno MD [facility] Family Medicine [phone] Cal Mitchell is a 78 year old [...] ALLERGIES No Known Allergies Indication for Warfarin: senior care (current) use of anticoagulants Paroxysmal atrial fibrillation [...] Pharmacy Anticoagulation Clinic Pharmacy Anticoagulation Clinic Pager: [phone]. documented in this encounterSt. Anthony'S Hospital09-19-2023 Miscellaneous Notes* Telephone Encounter - Pily Cuevas - 07/04/2023 3:50 PM EDT Patient needs to have a gap supply sent to [facility] as well please send at least [...] notify patient. Pily Horne documented in this encounterSt. Anthony'S Hospital09-12-2023 History of Present illness Narrative* Lizette Cardenas RN - 2023 3:08 PM EDT ACM LUIS RN Action/FYI: Medication Adherence review completed per request of payer. NO PROVIDER ACTION REQUIRED Please see requests in the Summary/Findings section below Patient identified by name and date of . Patient Attributed To: YANCIE Payer: [facility] Reason for review or outreach: Medication Adherence Medication Adherence Review Details: Hypertension Summary / Findings: Lisinopril was due for refill on: 05/16/[facility] Action Taken: Data submitted to AtriCure message to patient Other Contact made with patient: No, Chart review only. Signature: Lizette Cardenas RN documented in this encounterSt. Anthony'S Hospital08-07-2023 Miscellaneous Notes* Telephone Encounter - Alejandro Molina RPh - 05/22/2023 10:[address] [facility] Ambulatory [facility]acy Anticoagulation Clinic Anticoagulation Episode Summary Anticoagulation Care Providers Provider Role Specialty Phone number Guanakito Reno MD [facility] [phone] Cal Mitchell is a 77 year old [...] instructed to call Pharm[facility]tico[facility] at [phone] with any questionsor concerns. Alejandro Molina RPh Clinical Pharmacist, Pharmacy Anticoagulation Clinic Pharmacy Anticoagulation Clinic Pager: [phone] documented in this encounterSt. Anthony'S Hospital07-10-2023 Miscellaneous Notes* Telephone Encounter - Alejandro Molina RPh - 04/24/2023 10:[address] [facility] Ambulatory Pharmacy Anticoagulation Clinic Anticoagulation Episode Summary Anticoagulation Care Providers Provider Role Specialty Phone number Guanakito Reno MD [facility] [phone] Cal Mitchell is a 77 year old [...] Pharmacy Anticoagulation Clinic Pharmacy Anticoagulation Clinic Pager: [phone]. documented in this encounterSt. Anthony'S Hospital07-05-2023 Miscellaneous Notes* Telephone Encounter - Anna [...] patient. Leslie Perez Pss documented in this encounterSt. Anthony'S Hospital06-13-2023 Miscellaneous Notes* Telephone Encounter - Twin Cole [facility] - 03/28/2023 3:[address] [facility] Ambulatory Pharmacy Anticoagulation Clinic Anticoagulation Episode Summary Anticoagulation Care Providers Provider Role Specialty Phone number Guanakito Reno MD [facility] Family Medicine [phone] Cal Mitchell is a 77 year old [...] Pharmacy Anticoagulation Clinic Pharmacy Anticoagulation Clinic Pager: [phone]. documented in this encounterSt. Anthony'S Hospital05-01-2023 History of Present illness Narrative* Dory Mayers RN - 02/13/2023 4:13 PM EDT EVENT MONITOR DISPOSABLE PATCH INSTRUCTIONS Patient Name: Cal Mitchell [facility] Number: [id number] Skin prepped and cleansed with alcohol Patch secured to prepped area Monitor Activated Serial #: [id number] Patient Instructed: Prescribed order timeframe Bathing guidelines Usage of event button and diary documentation Return of monitor at the end of prescribed order Call with problems [phone] or [phone] ext. [phone] Patient expresses a good understanding of instructions Dory Mayers RN * Pam Reddy MD - 02/13/2023 4:01 PM EDT Images from the original note were not included. Pam Reddy MD Interventional Cardiology [facility] [address], [place] [address] [phone] Chief Complaint Patient presents with: Established Patient [...] 8 hours as needed. blood sugar diagnostic ([employer] ULTRA TEST) test strip Test blood sugar(s) one times daily. Dx: 250.00. Insulin: No 150 Strip 3 Lancets (ONE TOUCH DELICA) [facility] lancets Test blood sugar(s) one [...] to correct any errors. documented in this encounterSt. Anthony'S Hospital04-24-2023 History of Present illness Narrative* Guanakito [...] 250.00. Insulin: No Lancets (ONE TOUCH DELICA) [facility] lancets Test blood sugar(s) one [...] vaccine - ICD9: V04.89, ICD10: Z23 - [email or web address] COVID-19 BIVALENT VACCINE, AGE 12+ YR Guanakito Reno MD documented in this encounterSt. Anthony'S Hospital04-03-2023 Miscellaneous Notes* Telephone Encounter - Corrina [...] notify patient. Winifred Zazueta documented in this encounterSt. Anthony'S Hospital03-30-2023 Miscellaneous Notes* Telephone Encounter - Jimmy Carrizales [facility] - 01/12/2023 4:[address] [facility] Ambulatory Pharmacy Anticoagulation Clinic Anticoagulation Episode Summary Anticoagulation Care Providers Provider Role Specialty Phone number Guanakito Reno MD [facility] Family Medicine [phone] Cal Mitchell is a 77 year old [...] ALLERGIES No Known Allergies Indication for Warfarin: senior care (current) use of anticoagulants Paroxysmal atrial fibrillation [...] Pharmacy Anticoagulation Clinic Pharmacy Anticoagulation Clinic Pager: [phone]. * Telephone Encounter - Ruthie Cuevas RPh - 01/11/2023 9:[address] 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 * Telephone Encounter - Alejandro Molina RPh - 01/09/2023 4:34 PM EDT Patient was due to test INR today. Will continue to monitor for results. documented in this encounterSt. Anthony'S Hospital03-06-2023 Miscellaneous Notes* Telephone Encounter - Alejandro Molina RPh - 12/19/2022 10:37 AM EST [facility] Pharmacy Anticoagulation Clinic Anticoagulation Episode Summary Anticoagulation Care Providers Provider Role Specialty Phone number Guanakito Reno MD Responsible [facility] [phone] Cal Mitchell is a 77 year old [...] instructed to call Pharm[facility]tico[facility] at [phone] with any questionsor concerns. Alejandro Molina bobbi Clinical Pharmacist, Pharmacy Anticoagulation Clinic Pharmacy Anticoagulation Clinic Pager: [phone] documented in this encounterSt. Anthony'S Hospital02-13-2023 Miscellaneous Notes* Telephone Encounter - Alejandro Molina RPh - 11/28/2022 10:18 AM EST [facility] Pharmacy Anticoagulation Clinic Anticoagulation Episode Summary Anticoagulation Care Providers Provider Role Specialty Phone number Guanakito Reno MD [facility] [phone] Cal Mitchell is a 77 year old [...] instructed to call Pharm[facility]tico[facility] at [phone] with any questionsor concerns. Alejandro Molina RPh Clinical Pharmacist, Pharmacy Anticoagulation Clinic Pharmacy Anticoagulation Clinic Pager: [phone] documented in this encounterSt. Anthony'S Hospital02-03-2023 Miscellaneous Notes* Telephone Encounter - Kamran Ayon RPh - 11/18/2022 12:49 PM EST Patient due to test INR today. Will continue to monitor for results. Kamran Ayon RPh documented in this encounterSt. Anthony'S Hospital01-20-2023 Miscellaneous Notes* Telephone Encounter - Kamran Ayon RPh - 11/04/2022 8:[address] [facility] Ambulatory Pharmacy Anticoagulation Clinic Anticoagulation Episode Summary Anticoagulation Care Providers Provider Role Specialty Phone number Guanakito Reno MD [facility] Internal Medicine [phone] Cal Mitchell is a 77 year old [...] ALLERGIES No Known Allergies Indication for Warfarin: senior care (current) use of anticoagulants Paroxysmal atrial fibrillation (hcc) Anticoagulation Episode Summary Current INR goal: 2.0-3.0 Assessment: INR result of 2.2 is therapeutic Plan: Current Warfarin Dosing As of 11/04/2022 Full warfarin instructions: 7.5 mg every Tu, Kaye; 5 mg all other days; Starting 11/04/2022 Sent [place] message Advised patient to continue current weekly dose as noted above Next home INR check scheduled on 11/18/2022 Kamran Ayon RPh Clinical Pharmacist, Pharmacy Anticoagulation Clinic Pharmacy Anticoagulation Clinic Pager: [phone]. documented in this encounterSt. Anthony'S Hospital01-17-2023 Miscellaneous Notes* Telephone Encounter - Twin Cole RPh - 11/01/2022 10:30 AM EST Patient due to test INR today. Will continue to monitor for results. Twin Cole RPh documented in this encounterSt. Anthony'S Hospital01-10-2023 Miscellaneous Notes* Telephone Encounter - Twin Cole RPh - 10/25/2022 4:[address] 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 * Telephone Encounter - Ruthie Cuevas RPh - 10/19/2022 4:33 PM EST Patient was due to test INR today will continue to monitor for results. Ruthie Cuevas PharmD documented in this encounterSt. Anthony'S Hospital12-20-2022 History of Present illness Narrative* Alondra Prescott DO - 10/04/2022 10:58 AM EST This office note has been dictated. Alondra Prescott DO * Alondra Prescott DO - 10/04/2022 12:00 AM EST NAME: CAL MITCHELL [employer] NO: [id number] DATE OF SERVICE: 10/04/2022 Subjective: Mr. Mitchell [...] concerns. Alondra Prescott D.O. KB/089 Audio #: [id number] Date Dictated: 10/04/2022 10:13:59 Date Typed: 10/05/2022 14:12:47 Date Revised: documented in this encounterSt. Anthony'S Hospital12-15-2022 Miscellaneous Notes* Telephone Encounter - Jimmydeepak Carrizales, [facility] - 09/29/2022 4:[address] [facility] Ambulatory Pharmacy Anticoagulation Clinic Anticoagulation Episode Summary Anticoagulation Care Providers Provider Role Specialty Phone number Guanakito Reno MD [facility] Family Medicine [phone] Cal Mitchell is a 77 year old [...] ALLERGIES No Known Allergies Indication for Warfarin: senior care (current) use of anticoagulants Paroxysmal atrial fibrillation [...] Pharmacy Anticoagulation Clinic Pharmacy Anticoagulation Clinic Pager: [phone]. * Telephone Encounter - Ruben Cunningham (Assistant Community Manager) - 09/29/2022 2:23 PM EST PATIENT CALL [...] stated she lets blocked calls go to [employer]. She asked if she needed to be near the meterto report the results over the phone to [facility]--advised her I am not sure. January can be reached at [phone] Ruben Cunningham ([employer]) * Telephone Encounter - Ruthie Cuevas RPh [...] PharmD Pharmacy Anticoagulation Clinic documented in this encounterSt. Anthony'S Hospital12-09-2022 Miscellaneous Notes* Telephone Encounter - Yasemin [...] and advise. Yasemin Cook documented in this encounterSt. Anthony'S Hospital12-01-2022 Miscellaneous Notes* Telephone Encounter - Yamilka [...] and not patient's name. Messaged Bonita at [facility]. Apurva Heath RN Pharmacy Anticoagulation Clinic * Telephone Encounter - Jimmy Carrizales [facility] - 09/15/2022 10:[address] [facility] Ambulatory Pharmacy Anticoagulation Clinic Anticoagulation Episode Summary Anticoagulation Care Providers Provider Role Specialty Phone number Guanakito Reno MD [facility] Medicine [phone] Cal Mitchell is a 77 year old [...] ALLERGIES No Known Allergies Indication for Warfarin: senior care (current) use of anticoagulants Paroxysmal atrial fibrillation (hcc) Anticoagulation Episode Summary Current INR goal: 2.0-3.0 Assessment: INR result of is SUBtherapeutic due to: unknown cause - did not speak to patient Plan: Current Warfarin Dosing As of 08/22/2022 Full warfarin instructions: 09/15: 7.5 mg; Otherwise 7.5 mg every Tue; 5 mg all other days; Ufn[place]ue81/7/2022 Called and spoke to patient/caregiver - per demographics we only have daughter's phone number but no identifier Advised patient to increase dose for 1 day only then resume weekly regimen Next home INR check scheduled on 09/21/2022 Jimmy Carrizales RPh Clinical Pharmacist, Pharmacy Anticoagulation Clinic Pharmacy Anticoagulation Clinic Pager: [phone]. * Telephone Encounter - Alejandro Mloina RPh - 09/05/2022 5:31 PM EST Added [...] to monitor for results. documented in this encounterSt. Anthony'S Hospital11-23-2022 History of Present illness Narrative* Lizette Cardenas RN - 09/07/2022 6:24 AM EST ACM LUIS RN Action/FYI: Medication Adherence review completed per request of [facility]. NO PROVIDER ACTION REQUIRED Lisinopril/Hctz 20-12.5mg Last filled: 05/21/22 Days Supply: 90 Refill Due: 08/19/22 Pharmacy: [email or web address] Atorvastatin 80mg Last filled: 03/20/22 Days Supply: 90 Refill Due: 06/28/22 Pharmacy: [email or web address] MY CHART MESSAGE SENT Patient identified by name and date of . Patient Attributed To: QAE Payer: [employer] [place] Reason for review or outreach: Medication Adherence Medication Adherence Review Details: Cholesterol and Hypertension Summary / Findings: As per above Action Taken: Data submitted to [employer] message to patient Contact made with patient: No, Chart review only. Signature: Lizette Cardenas RN documented in this encounterSt. Anthony'S [facility]10-31-2022 History of Present illness Narrative* Pam Reddy MD - 08/15/2022 3:48 PM EDT Images from the original note were not included. Pam Reddy MD Interventional Cardiology [facility] [address], [place] [address] [phone] Chief Complaint Patient presents with: Consult HISTORY [...] 150 Strip 3 Lancets (ONE TOUCH DELICA) [facility] lancets Test blood sugar(s) one [...] to correct any errors. documented in this encounterSt. Anthony'S Hospital10-17-2022 Miscellaneous Notes* Telephone Encounter - Alejandro Molina RPh - 08/01/2022 9:[address] [facility] Anticoagulation Episode Summary Anticoagulation Care Providers Provider Role Specialty Phone number Guanakito Reno MD [facility] [phone] Cal Mitchell is a 77 year old [...] instructed to call [facility] at [phone] with any questionsor concerns. Alejandro Molina RPh Clinical Pharmacist, Pharmacy Anticoagulation Clinic Pharmacy An[facility] Pager: [phone] documented in this encounterSt. Anthony'S Hospital10-07-2022 Miscellaneous Notes* Telephone Encounter - Darrell [...] advise. Darrell Meyer LPN documented in this encounterSt. Anthony'S Hospital09-20-2022 Miscellaneous Notes* Telephone Encounter - Twin Mooneynicole [facility] - 07/05/2022 9:[address] [facility] Anticoagulation Episode Summary Anticoagulation Care Providers Provider Role Specialty Phone number Guanakito Reno MD [facility] [phone] Cal Mitchell is a 77 year old [...] Pharmacy Anticoagulation Clinic Pharmacy Anticoagulation Clinic Pager: [phone]. * Telephone Encounter - Alejandro Molina RPh - 07/04/2022 3:42 PM EDT Cal Mitchell was called and reminded to test INR today or as soon as possible. * Telephone Encounter - Alejandro Molina RPh - 2022 4:11 PM EDT Patient was due to test INR today. Will continue to monitor for results. documented in this encounterSt. Anthony'S Hospital08-30-2022 Miscellaneous Notes* Telephone Encounter - Twin Cole RPh - 06/14/2022 9:[address] [facility] Clinic Anticoagulation Episode Summary Anticoagulation Care Providers Provider Role Specialty Phone number Guanakito Reno MD [facility] [phone] Cal Mitchell is a 76 year old [...] Pharmacy Anticoagulation Clinic Pharmacy Anticoagulation Clinic Pager: [phone]. * Telephone Encounter - Val Oliver RPh - 06/13/2022 9:09 AM EDT MyChart message sent as a reminder to test INR RAISSA. * Telephone Encounter - Alejandro Molina RPh - 06/06/2022 4:50 PM EDT Patient was due to test INR today. Will continue to monitor for results. documented in this encounterSt. Anthony'S Hospital08-30-2022 History of Present illness Narrative* Nirmala Lim MA - 06/14/2022 9:03 AM EDT POPULATION HEALTH NAVIGATION OUTREACH Action/FYI Called and left a message to call [phone], to discuss health maintenance items that are due. Sent My Chart message. PCP appt: 01/19- needs follow up per last ov note My chart activation: active Advance directive: needs info HM due: Follow up ARIAN AD Pt identified by name and : NO Outreach Outcome/Action Unable to reach patient: Left message zSouphart message sent Did you use a PCP [...] 14, 2022 9:05 AM documented in this encounterSt. Anthony'S Hospital08-04-2022 Miscellaneous Notes* Telephone Encounter - Huong [...] 05/19/2022 11:56 AM EDT Pharmacy verified in [facility] Patient has been identified by name [...] Please advise. Yasemin Horne documented in this encounterSt. Anthony'S Hospital08-01-2022 Miscellaneous Notes* Telephone Encounter - Alejandro Molina [facility] - 05/16/2022 11:[address] [facility] Anticoagulation Episode Summary Anticoagulation Care Providers Provider Role Specialty Phone number Guanakito Reno MD [facility] [phone] Cal Mitchell is a 76 year old [...] instructed to call [facility] at [phone] with any questionsor concerns. Alejandro Molina RPh Clinical Pharmacist, Pharmacy Anticoagulation Clinic Pharmacy Anticoagulation Clinic Pager: [phone] documented in this encounterSt. Anthony'S Hospital07-11-2022 Miscellaneous Notes* Telephone Encounter - Val Oliver RPh - 04/25/2022 7:56 AM EDT Last INR due around 04/18. MyChart message sent as a reminder to test INR RAISSA. PT INR (no units) Date Value 01/24/2022 2.1 biotel 10/26/2021 2.1 (Biotel) 03/04/2021 2.4 INR Home CoaguChek (no units) Date Value 04/02/2022 2.2 03/09/2022 2.6 02/10/2022 3.4 documented in this encounterSt. Anthony'S Hospital06-15-2022 Miscellaneous Notes* Telephone Encounter - Ruthie [...] either. Ruthie Cuevas PharmD documented in this encounterSt. Anthony'S Hospital06-01-2022 Miscellaneous Notes* Telephone Encounter - Nicki Nieto - 03/16/2022 10:46 AM EDT Patient is scheduled for an appt on 03/22/22 in [place]. Did call the patient to see if any external imagine has been complete, left VM to call the office Or record indicates no testing has been completed since 2019 Would you like an updated carotid US Order pending please sign if correct Thanks documented in this encounterSt. Anthony'S Hospital05-25-2022 Miscellaneous Notes* Telephone Encounter - Ruthie Cuevas RPh - 03/09/2022 4:[address] 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 Plan: Called and spoke to patient/caregiver Advised patient to continue current weekly dose Next home INR check scheduled on 03/23/2022 Ruthie Cuevas RPh Clinical Pharmacist, Pharmacy Anticoagulation Clinic Pharmacy Anticoagulation Clinic Pager: [phone] . documented in this encounterSt. Anthony'S Hospital05-05-2022 Miscellaneous Notes* Telephone Encounter - Jazmyn Garcia RPh - 02/17/2022 1:17 PM EDT Patient due to test INR today. Will continue to monitor for results. Jazmyn Garcia RPh documented in this encounterSt. Anthony'S Hospital04-29-2022 Miscellaneous Notes* Telephone Encounter - Denisse Hutchinson RPh - 02/11/2022 8:[address] [facility] Anticoagulation Episode Summary Anticoagulation Care Providers Provider Role Specialty Phone number Guanakito Reno MD [facility] [phone] Cal Mitchell is a 76 year old [...] ALLERGIES No Known Allergies Indication for Warfarin: senior care (current) use of anticoagulants Paroxysmal atrial fibrillation (hcc) Anticoagulation Episode Summary Current INR goal: 2.0-3.0 Assessment: INR result of is SUPRAtherapeutic due to: unknown cause - did not speak to patient Plan: Sent Vindihart message Advised patient to decrease dose for 2 days only then resume weekly regimen Next home INR check scheduled on 02/17/2022 Denisse Hutchinson RPh Clinical Pharmacist, Pharmacy Anticoagulation Clinic Pharmacy Anticoagulation Clinic Pager: [phone] . * Telephone Encounter - Twin Cole RPh - 02/08/2022 4:00 PM EDT Patient due to test INR today. Will continue to monitor for results. Twin Cole RPh documented in this encounterSt. Anthony'S Hospital04-12-2022 Miscellaneous Notes* Telephone Encounter - Twin Cole RPh - 01/25/2022 9:[address] [facility] Anticoagulation Episode Summary Anticoagulation Care Providers Provider Role Specialty Phone number Guanakito Reno MD [facility] [phone] Cal Mitchell is a 76 year old [...] Pharmacy Anticoagulation Clinic Pharmacy Anticoagulation Clinic Pager: [phone] . documented in this encounterSt. Anthony'S Hospital04-06-2022 History of Present illness Narrative* Guanakito [...] No. Dementia: Had previously been following with [facility]. Last visit 08/2020. Doesn't have anything further scheduled. Doesn't really want to go to [place], but appears last visit was distance. Does not drive. Lives w/ daughter. Stays up late at night and sleep during the day. A. Fib: Chronic anticoagulation. Denies any hematochezia/melena. Daughter does home checks. Follows w/ pharmacy. occ fall with no significant injury. Had been following with [place] cardiology, but unsure when he was last seen there. Diabetes. Does not check home blood sugars. Reports compliance w/ medication. Carotid artery stenosis. Follows w/ vascular. Last visit 10/20/20. Recommended follow-up with cardiology and then Dr. Devries in [place]. He did have echo done. Unsure if he followed up with [place] cardiology. Per note, they wanted to establish [...] Abs Lymph 1.00 - 4.00 k/uL 1.65 [place]% % 7.4 Abs [place] <0.87 k/uL 0.53 Eosin% % 8.2 Abs [...] Negative Negative Ketones, Urine Negative Negative Specific [place], Ur 1.005 - 1.030 1.016 Hemoglobin/Blood,Ur Negative [...] 8 hours as needed. blood sugar diagnostic (WiredBenefitsTOUCH ULTRA TEST) test strip Test blood sugar(s) one times daily. Dx: 250.00. Insulin: No Lancets (ONE TOUCH DELICA) [facility] lancets Test blood sugar(s) one [...] three months and prn. documented in this encounterSt. Anthony'S Hospital03-31-2022 Miscellaneous Notes* Telephone Encounter - Jazmyn Garcia RPh - 01/13/2022 2:33 PM EDT Patient due to test INR today. Will continue to monitor for results. Jazmyn Garcia RPh documented in this encounterSt. Anthony'S Hospital11-11-2020 History of Past illness Narrative* Problem [...] of this encounter (statuses as of 08/15/2023) [facility] Narrative* Problem [...] of this encounter (statuses as of 08/15/2023) [facility] Narrative* Problem [...] of this encounter (statuses as of 08/16/2023) [facility] Narrative* Problem [...] of this encounter (statuses as of 08/23/2023) [facility] Narrative* Problem [...] of this encounter (statuses as of 09/06/2023) [facility] Narrative* Problem [...] of this encounter (statuses as of 09/20/2023) [address] History of Past illness Narrative* Problem [...] of this encounter (statuses as of 12/04/2023) [facility] Narrative* Problem [...] of this encounter (statuses as of 12/21/2023) [facility] Narrative* Problem [...] of this encounter (statuses as of 12/21/2023) [facility] Narrative* Problem [...] of this encounter (statuses as of 12/22/2023) [facility] Narrative* Problem [...] of this encounter (statuses as of 01/15/2024) [facility] Narrative* Problem [...] of this encounter (statuses as of 01/18/2024) [facility] Narrative* Problem [...] of this encounter (statuses as of 01/19/2022) [facility] N[facility]ative* Problem [...] of this encounter (statuses as of 01/25/2022) [facility] Narrative* Problem [...] of this encounter (statuses as of 02/11/2022) [facility] N[facility]ative* Problem [...] of this encounter (statuses as of 03/09/2022) [facility] N[facility]ative* Problem [...] of this encounter (statuses as of 03/17/2022) [facility] Narrative* Problem [...] of this encounter (statuses as of 03/18/2022) [facility] N[facility]ative* Problem [...] of this encounter (statuses as of 04/04/2022) [facility] N[facility]ative* Problem [...] of this encounter (statuses as of 04/25/2022) [facility] N[facility]ative* Problem [...] of this encounter (statuses as of 05/13/2022) [facility] N[facility]* Problem [...] of this encounter (statuses as of 05/16/2022) [facility] N[facility]ative* Problem [...] of this encounter (statuses as of 05/19/2022) [facility] N[facility]ative* Problem [...] of this encounter (statuses as of 06/14/2022) [facility] N[facility]ative* Problem [...] of this encounter (statuses as of 07/05/2022) [facility] N[facility]ative* Problem [...] of this encounter (statuses as of 07/22/2022) [facility] N[facility]ative* Problem [...] of this encounter (statuses as of 08/01/2022) [facility] N[facility]ative* Problem [...] of this encounter (statuses as of 08/15/2022) [facility] N[facility]ative* Problem [...] of this encounter (statuses as of 09/07/2022) [facility] N[facility]* Problem [...] of this encounter (statuses as of 09/15/2022) [facility]* Problem [...] of this encounter (statuses as of 09/23/2022) [facility] N[facility]* Problem [...] of this encounter (statuses as of 09/29/2022) [facility]* Problem [...] of this encounter (statuses as of 10/16/2022) [facility]* Problem [...] of this encounter (statuses as of 10/25/2022) [facility]* Problem [...] of this encounter (statuses as of 11/04/2022) [facility]* Problem [...] of this encounter (statuses as of 11/08/2022) [facility]* Problem [...] of this encounter (statuses as of 11/18/2022) [facility]* Problem [...] of this encounter (statuses as of 11/28/2022) [facility]* Problem [...] of this encounter (statuses as of 12/19/2022) [facility]* Problem [...] of this encounter (statuses as of 01/12/2023) [facility]* Problem [...] of this encounter (statuses as of 01/16/2023) [facility]* Problem [...] of this encounter (statuses as of 02/07/2023) [facility]* Problem [...] of this encounter (statuses as of 02/14/2023) [facility]* Problem [...] of this encounter (statuses as of 03/29/2023) [facility]* Problem [...] of this encounter (statuses as of 04/20/2023) [facility]* Problem [...] of this encounter (statuses as of 04/24/2023) [facility]* Problem [...] of this encounter (statuses as of 05/22/2023) [facility]* Problem [...] of this encounter (statuses as of 06/28/2023) [facility] N[facility]* Problem [...] of this encounter (statuses as of 07/05/2023) [facility] N[facility]ative* Problem [...] of this encounter (statuses as of 07/27/2023) [facility] Diagnosis Essential hypertension- Primary Unspecified essential [...] 3b CKD (HCC) [facility] this [facility]* Diagnosis 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- Primary Long-term (current) use of anticoagulants Paroxysmal atrial fibrillation (HCC) Atrial fibrillation [facility] this [facility]* Diagnosis 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- Primary Long-term (current) use of anticoagulants Paroxysmal atrial fibrillation (HCC) Atrial fibrillation [facility] this [facility]* Diagnosis 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- Primary Long-term (current) use of anticoagulants Paroxysmal atrial fibrillation (HCC) [facility]rial [facility] Diagnosis senior care (current) use of anticoagulants- Primary Long-term (current) use of anticoagulants Paroxysmal atrial fibrillation (HCC) Atrial fibrillation [facility]* Diagnosis Bilateral carotid artery stenosis- Primary Occlusion and stenosis of carotid artery without mention of cerebral infarction Stenosis of left carotid artery Occlusion and stenosis of carotid artery without mention of cerebral infarction [facility] this [facility]* Diagnosis 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- Primary Long-term (current) use of anticoagulants Paroxysmal atrial fibrillation (HCC) [facility]rial [facility] Diagnosis Benign prostatic hyperplasia without lower urinary tract symptoms Mixed dementia (HCC) Essential hypertension with goal blood pressure less than 140/90 Lung nodule Solitary pulmonary nodule Paroxysmal atrial fibrillation (HCC) Atrial fibrillation [facility] Diagnosis Paroxysmal atrial fibrillation (HCC) Atrial fibrillation [facility] this [facility]* Diagnosis Obesity, Class II, BMI 35-39.9- Primary Obesity, unspecified Paroxysmal atrial fibrillation (HCC) Atrial fibrillation Nonrheumatic aortic valve stenosis Aortic valve disorders Aortic valve disorder Aortic valve disorders [facility]* Diagnosis senior care (current) use of anticoagulants- Primary Long-term (current) use of anticoagulants Paroxysmal atrial fibrillation (HCC) Atrial fibrillation [facility] this [facility] Diagnosis Essential hypertension with goal blood pressure less than 140/90 [address] [facility]* Diagnosis senior care (current) use of anticoagulants- Primary Long-term (current) use of anticoagulants Paroxysmal atrial fibrillation (HCC) Atrial fibrillation [facility] this [facility] Diagnosis Bilateral carotid artery stenosis- Primary Occlusion and stenosis of carotid artery without mention of cerebral infarction [facility] Diagnosis senior care (current) use of anticoagulants- Primary Long-term (current) use of anticoagulants Paroxysmal atrial fibrillation (HCC) Atrial fibrillation [facility]* Diagnosis Essential hypertension with goal blood pressure less than 140/90 [facility]* Diagnosis Essential hypertension with goal [...] for COVID-19 vaccine [facility] this [facility] Diagnosis Syncope, unspecified syncope type- Primary Aortic valve disorder Aortic valve disorders [facility] Diagnosis Paroxysmal atrial fibrillation (HCC) Atrial fibrillation Essential hypertension with goal blood pressure less than 140/90 Benign prostatic hyperplasia without lower urinary tract symptoms Mixed dementia (HCC) Lung nodule Solitary pulmonary nodule Type 2 diabetes mellitus with stage 3 chronic kidney disease, without long-term current use of insulin (HCC) [facility]* Diagnosis Essential hypertension with goal blood pressure less than 140/[address] [facility] Diagnosis senior care (current) use of anticoagulants- Primary Long-term (current) use of anticoagulants Paroxysmal atrial fibrillation (HCC) Atrial fibrillation [facility] this [facility]* Diagnosis Onychomycosis- Primary Dermatophytosis of nail [...] kidney disease (HCC) [facility]* Diagnosis Renal insufficiency- Primary Unspecified disorder of kidney and ureter [facility]* Diagnosis 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- Primary Long-term (current) use of anticoagulants Paroxysmal atrial fibrillation (HCC) Atrial fibrillation [facility]* Diagnosis senior care (current) use of anticoagulants- Primary Long-term (current) use of anticoagulants Paroxysmal atrial fibrillation (HCC) Atrial fibrillation [facility] this [facility]* Diagnosis Abrasion of arm, left, initial encounter- Primary Chronic insomnia Insomnia, unspecified [facility]* Diagnosis Essential hypertension with goal blood pressure less than 140/90 Paroxysmal atrial fibrillation (HCC) Atrial fibrillation [facility]* Diagnosis Lung nodule Solitary pulmonary nodule [facility] this [facility]* Diagnosis 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- Primary Long-term (current) use of anticoagulants Paroxysmal atrial fibrillation (HCC) Atrial fibrillation [facility] this 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* Diagnosis Essential hypertension- Primary Unspecified essential [...] or 3b CKD (HCC) Mixed dementia (HCC) senior care (current) use of anticoagulants Long-term (current) use of anticoagulants Obesity, Class II, BMI 35-39.9 Obesity, unspecified Renal insufficiency Unspecified disorder of kidney and ureter Anemia, unspecified type [facility] Diagnosis senior care (current) use of anticoagulants- Primary Long-term (current) use of anticoagulants Paroxysmal atrial fibrillation (HCC) Atrial fibrillation [facility] this [facility]* Diagnosis CKD (chronic kidney disease) stage 4, 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/min ([facility] Primary Chronic kidney disease, Stage IV (severe) Anemia, unspecified type [facility] this [facility]* Diagnosis Essential hypertension- Primary Unspecified essential [...] Stage IV (severe) [facility] in this [facility]* Diagnosis 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- Primary Long-term (current) use of anticoagulants Paroxysmal atrial fibrillation (HCC) Atrial fibrillation [facility] this [facility]* Diagnosis Renal insufficiency Unspecified disorder of kidney and ureter documented in this [facility] Diagnosis Essential hypertension- Primary Unspecified essential hypertension Hypertensive kidney disease with stage 3 chronic kidney disease, unspecified whether stage 3a or 3b CKD (HCC) Anemia, unspecified type [facility]* Diagnosis senior care (current) use of anticoagulants- Primary Long-term (current) use of anticoagulants Paroxysmal atrial fibrillation (HCC) Atrial fibrillation documented in this encounter [facility] note* Diagnosis Blood pressure check- Primary Screening for hypertension Leg swelling Swelling of limb [facility] encounter [facility]* Diagnosis Aortic valve stenosis, etiology of cardiac valve disease unspecified- Primary Hypertensive kidney disease with stage 3b chronic kidney disease (HCC) Paroxysmal atrial fibrillation (HCC) Atrial fibrillation Benign prostatic hyperplasia without lower urinary tract symptoms Anemia, unspecified type documented in this encounter [facility] note* Diagnosis 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- Primary Long-term (current) use of anticoagulants Paroxysmal atrial fibrillation (HCC) Atrial fibrillation documented in this encounter [facility] note* Diagnosis Screen for colon cancer- Primary Special screening for malignant neoplasms, colon documented in this encounter [facility] note* Diagnosis 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- Primary Long-term (current) use of anticoagulants Paroxysmal atrial fibrillation (HCC) Atrial fibrillation documented in this encounter [facility] note* Diagnosis Severe aortic stenosis [I35.0]- Primary Aortic valve disorders Valvular heart disease Endocarditis, valve unspecified, unspecified cause documented [facility] this [facility]* Diagnosis Nonrheumatic aortic valve stenosis- Primary [...] unspecified, unspecified cause documented in this encounter [facility] note* Diagnosis Nonrheumatic aortic valve stenosis Aortic valve disorders Valvular heart disease Endocarditis, valve unspecified, unspecified cause documented in this encounter [facility] note* Diagnosis Essential hypertension- Primary Unspecified [...] disease, Stage IV (severe) Mixed dementia (HCC) senior care (current) use of anticoagulants Long-term (current) use of anticoagulants Need for vaccination Need for prophylactic vaccination and inoculation against unspecified single disease Valvular heart disease Endocarditis, valve unspecified, unspecified cause [facility]* Diagnosis Essential hypertension- Primary Unspecified essential hypertension Valvular heart disease Endocarditis, valve unspecified, unspecified cause documented in this encounter [facility] note* Diagnosis Paroxysmal atrial fibrillation (HCC)- Primary Atrial fibrillation Aortic valve stenosis, etiology of cardiac valve disease unspecified Valvular heart disease Endocarditis, valve unspecified, unspecified cause documented [facility] this encounter [facility]* Diagnosis Nonrheumatic aortic valve stenosis- Primary Aortic valve disorders Paroxysmal atrial fibrillation (HCC) Atrial fibrillation Valvular heart disease Endocarditis, valve unspecified, unspecified cause documented in this [facility]* Diagnosis Nonrheumatic aortic valve stenosis Aortic valve disorders Encounter for preprocedural cardiovascular examination Pre-operative cardiovascular examination documented in this encounter [facility] note* Diagnosis senior care (current) use of anticoagulants- Primary Long-term (current) use of anticoagulants Paroxysmal atrial fibrillation (HCC) Atrial fibrillation documented in this encounter [facility] note* Diagnosis Bilateral carotid artery stenosis- Primary Occlusion and stenosis of carotid artery without mention of cerebral infarction History of carotid endarterectomy Other postprocedural status documented [facility] this [facility]* Diagnosis senior care (current) use of anticoagulants- Primary Long-term (current) use of anticoagulants Paroxysmal atrial fibrillation (HCC) Atrial fibrillation documented [facility] encounter [facility]* Diagnosis Hyperlipidemia, mixed- Primary Mixed hyperlipidemia [...] (HCC) Chronic kidney disease, Stage IV (severe) 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 Long-term (current) use of anticoagulants Obesity, Class II, BMI 35-39.9 Obesity, unspecified Viral conjunctivitis Unspecified diseases of conjunctiva due to viruses Seasonal allergic rhinitis, unspecified trigger Bilateral impacted cerumen Impacted cerumen documented [facility] this [facility]* Diagnosis 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- Primary Long-term (current) use of anticoagulants Paroxysmal atrial fibrillation (HCC) Atrial fibrillation documented in this encounter [facility] note* Diagnosis Paroxysmal atrial fibrillation (HCC) Atrial fibrillation documented in this encounter [facility] for referral (narrative)* Outpatient Procedure (Routine) - Pending Review Specialty Diagnoses / Procedures Referred By Contac t Referred To Contact [facility] [place] Diagnoses Bilateral carotid artery stenosis Procedures US CAROTID ARTERIES GRAY VAS LAB DUPLEX SCAN EXTRACRANIAL ART COMPL BI STUDY Alondra Prescott DO [address] [place] [address] [facility] [address] [address] Referral ID Status Reason Start Date Expiration Date Visits Requested Visits Authorized [id number] Pending Review Auto-Generat ed Referral 03/18/2022 03/16/2023 1 1 [facility] for referral (narrative)* Outpatient Procedure (Routine) - Authorized Specialty Diagnoses / Procedures Referred By Contac t Referred To Contact [facility] [place] [place] Diagnoses Nonrheumatic aortic valve stenosis Procedures ECHO ECHO TTHRC R-T 2D W/WOM-MODE COMPL SPEC&COLR Pam Velazco MD [address] [place] [address] [facility] [address] [address] Referral ID Status Reason Start Date Expiration Date Visits Requested Visits Authorized [id number] Authorized Auto-Generat ed Referral 08/22/2022 08/15/2023 1 1 [facility] for referral (narrative)* Outpatient Procedure (Routine) - Pending Review Specialty Diagnoses / Procedures Referred By Contac t Referred To Contact [facility] [place] [place] Diagnoses Bilateral carotid artery stenosis Procedures US CAROTID ARTERIES GRAY VAS LAB DUPLEX SCAN EXTRACRANIAL ART COMPL BI STUDY Alondra Prescott, [address] [place] [address] [facility] [address] [place] [address] Referral ID Status Reason Start Date Expiration Date Visits Requested Visits Authorized [id number] Pending Review Auto-Generat ed Referral 2 10/04/2023 1 1 [facility] for referral (narrative)* Outpatient Procedure (Routine) - Authorized Specialty Diagnoses / Procedures Referred By Contac t Referred To Contact [facility] Diagnoses Syncope, unspecified syncope type Aortic valve disorder Procedures ECHO ECHO TTHRC R-T 2D W/WOM-MODE COMPL SPEC&COLR D Pam Reddy MD [address] [place] [address] [id number] [place] [address] Referral ID Status Reason Start Date Expiration Date Visits Requested Visits Authorized [id number] Authorized Auto-Generat ed Referral 02/20/2023 02/13/2024 1 1 [facility] for referral (narrative)* Outpatient Procedure (Routine) - Pending Review Specialty Diagnoses / Procedures Referred By Contac t Referred To Contact [facility] Diagnoses Syncope, unspecified syncope type Aortic valve disorder Procedures ECHO ECHO TTHRC R-T 2D W/WOM-MODE COMPL SPEC&COLR Pam Velazco MD [address], [address] [place] [address] [facility] [place] [address] [place] [address] Referral ID Status Reason Start Date Expiration Date Visits Requested Visits Authorized [id number] Pending Review Auto-Generat ed Referral 04/08/2024 03/25/2025 1 1 * Outpatient Procedure (Routine) - Pending Review Specialty Diagnoses / Procedures Referred By Contac t Referred To Contact [facility] [place] Diagnoses Syncope, unspecified syncope type Aortic valve disorder Paroxysmal atrial fibrillation (HCC) Procedures ECG COMPLETE ECG ROUTINE ECG W/LEAST 12 LDS W/I&R Pam Reddy MD [address], [address] [place] [address] [facility] [address] [place] [address] Referral ID Status Reason Start Date Expiration Date Visits Requested Visits Authorized [id number] Pending Review Auto-Generat ed Referral 03/21/2024 03/21/2025 1 1 [facility] for referral (narrative)* Diagnostic Procedure Only (Routine) - Authorized Specialty Diagnoses / Procedures Referred By Juveac t Referred To Contact [facility] Diagnoses Renal insufficiency Procedures US KIDNEY/BLADDER US RETROPERITONEAL REAL TIME W/IMAGE COMPLETE Guanakito Reno MD [address] [place] [address] [id number] Referral ID Status Reason Start Date Expiration Date Visits Requested Visits Authorized [id number] Authorized Auto-Generat ed Referral 03/26/2024 04/25/2025 1 1 * Outpatient Procedure (Routine) - Pending Review Specialty Diagnoses / Procedures Referred By Contac t Referred To Contact [facility] [place] Diagnoses History of carotid endarterectomy Procedures US CAROTID ARTERIES GRAY VAS LAB DUPLEX SCAN EXTRACRANIAL ART COMPL BI STUDY Guanakito Reno MD [address] [place] [address] [facility] [place] [address] [place] [address] Referral ID Status Reason Start Date Expiration Date Visits Requested Visits Authorized [id number] Pending Review Auto-Generat ed Referral 03/26/2024 03/26/2025 1 1 [facility] for referral (narrative)* Diagnostic Procedure Only (Routine) - Closed Specialty Diagnoses / Procedures Referred By Contac t Referred To Contact [facility] Diagnoses Renal insufficiency Procedures US KIDNEY/BLADDER US RETROPERITONEAL REAL TIME W/IMAGE COMPLETE Guanakito Reno MD [address] [place] [address] [place] [address] Referral ID Status Reason Start Date Expiration Date V isits Requested Visits Authorized [id number] Closed Auto-Generate d Referral 03/26/2024 04/25/2025 1 1 [facility] for referral (narrative)* Diagnostic Procedure Only (Routine) - New Request Specialty Diagnoses / Procedures Referred By Contac t Referred To Contact [facility] Diagnoses Bilateral carotid artery stenosis History of carotid endarterectomy Procedures US CAROTID BILATERAL Laura Iraheta MD [address] [place] [address] [place] [address] Referral ID Status Reason Start Date Expiration Date Visits Requested Visits Authorized [id number] New Request Auto-Generat ed Referral 09/05/[address] [facility] Summary Purpose Family History No Family [...] Mixed dementia (HCC) Guanakito Reno MD [address] [place] [address] Referral ID Status Reason Start Date Expiration Date Visits Re quested Visits Authorized [id number] Closed 1 1 Referral ID Status Reason Start Date Expiration Date Visits Re quested Visits Authorized [id number] Closed 1 1 Specialty Diagnoses / Procedures Referred By Contac t Referred To Contact Podiatry Diagnoses Onychomycosis Procedures CONSULT TO PODIATRY OFFICE/OUTPATIENT [facility] 60-74 MINUTES Guanakito Reno MD [address] [place] [address] Referral ID Status Reason Start Date Expiration Date Visits Requested Visits Authorized [id number] Pending Review PCP Requested Referral 3 08/13/2024 1 1 Specialty Diagnoses / Procedures Referred By Contac t Referred To Contact Nephrology Diagnoses CKD (chronic kidney disease) stage 4, 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/min ([facility]) Anemia, unspecified type Procedures CONSULT TO NEPHROLOGY OFFICE/OUTPATIENT [facility] 60 MINUTES Guanakito Reno MD [address] [place] [address] Referral ID Status Reason Start Date Expiration Date Visits Requested Visits Authorized [id number] Authorized PCP Requested Referral 04/05/2024 04/05/2025 1 1 Specialty Diagnoses / Procedures Referred By Contac t Referred To Contact Vascular Surgery Diagnoses Stenosis of left carotid artery Procedures CONSULT TO VASCULAR SURGERY OFFICE/OUTPATIENT [facility] MDM 60 MINUTES Josselyn Mayer, 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 [address] [place] [id number] Laura Iraheta MD [address] [place] [address] Referral ID Status Reason Start Date Expiration Date Visits Requested Visits Authorized [id number] Authorized PCP Requested Referral 07/10/2024 07/10/2025 1 1 Specialty Diagnoses / Procedures Referred By Contac t Referred To Contact Nephrology Diagnoses Chronic kidney disease, unspecified CKD stage Anemia in chronic kidney disease, unspecified CKD stage Procedures CONSULT TO NEPHROLOGY Josselyn Mayer, [employer]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 [address] [place] [address] Eladio Remy MD [address] [address] Referral ID Status Reason Start Date Expiration Date Visits Requested Visits Authorized [id number] Ref Not Required PCP Requested Referral 07/10/2024 07/10/2025 1 1 Specialty Diagnoses / Procedures Referred By Contac t Referred To Contact Gerontology Diagnoses Dementia, unspecified dementia severity, unspecified dementia type, unspecified whether behavioral, psychotic, or mood disturbance or anxiety (HCC) Procedures CONSULT TO GERIATRICS OFFICE/OUTPATIENT [facility] 60 MINUTES Josselyn Mayer, [employer]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 [address] [place] [address] Referral ID Status Reason Start Date Expiration Date Visits Requested Visits Authorized [id number] Authorized PCP Requested Referral 07/10/2024 07/10/2025 1 1 Specialty Diagnoses / Procedures Referred By Contac t Referred To Contact CT IMAGING Diagnoses Nonrheumatic aortic valve stenosis Encounter for preprocedural cardiovascular examination Procedures CTA CHEST (GATED) WO/W IVCON CT ANGIOGRAPHY CHEST W/CONTRAST/NONCONTRAST Josselyn Mayer, 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 [address] [place] [address] [address] [address] [id number] Referral ID Status Reason Start Date Expiration Date Visits Requested Visits Authorized [id number] Authorized Auto-Generat ed Referral 07/10/2024 08/09/2025 1 1 Specialty Diagnoses / Procedures Referred By Contac t Referred To Contact CT IMAGING Diagnoses Nonrheumatic aortic valve stenosis Encounter for preprocedural cardiovascular examination Procedures CTA ABD/PEL W IVCON CT ANGIO ABD&PLVIS CNTRST MTRL W/WO CNTRST IMGES Josselyn Mayer, [employer]K [employer]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 [address] [place] [address] [address] [place] [address] Referral ID Status Reason Start Date Expiration Date Visits Requested Visits Authorized [id number] Authorized Auto-Generat ed Referral 07/10/2024 08/09/2025 1 1 Referral ID Status Reason Start Date Expiration Date V isits Requested Visits Authorized [id number] Closed Auto-Generate d Referral 07/10/2024 08/09/2025 1 1 Referral ID Status Reason Start Date Expiration Date V isits Requested Visits Authorized [id number] Closed Auto-Generate d Referral 07/10/2024 08/09/2025 1 [...] section and content) DATE CREATED AUTHOR 04/06/2018 [facility] DATE CREATED AUTHOR AUTHOR'S ORGANIZ ATION 03/12/2025 [facility] DATE CREATED AUTHOR AUTHOR'S ORGANIZ ATION 05/07/2025 [facility] DATE CREATED AUTHOR AUTHOR'S ORGANIZ ATION 07/04/2025 [facility] Source Comments (unrecognize d section and content) In the event this informatio n is protected by the Federal Confidentiality of Alcohol and Drug Abuse Patient Records regulations: The Federal rules restrict any use of the information to criminally investigate or prosecute any alcohol or drug abuse patient.[facility] event this information is protected by the Federal Confidentiality of Alcohol and Drug Abuse Patient Records regulations: The Federal rules restrict any use of the information to criminally investigate or prosecute any alcohol or drug abuse patient.[facility] the event this information is protected by the Federal Confidentiality of Alcohol and Drug Abuse Patient Records regulations: The Federal rules restrict any use of the information to criminally investigate or prosecute any alcohol or drug abuse patient.[facility] the event this information is protected by the Federal Confidentiality of Alcohol and Drug Abuse Patient Records regulations: The Federal rules restrict any use of the information to criminally investigate or prosecute any alcohol or drug abuse patient.[facility] the event this information is protected by the Federal Confidentiality of Alcohol and Drug Abuse Patient Records regulations: The Federal rules restrict any use of the information to criminally investigate or prosecute any alcohol or drug abuse patient.[facility] the event this information is protected by the Federal Confidentiality of Alcohol and Drug Abuse Patient Records regulations: The Federal rules restrict any use of the information to criminally investigate or prosecute any alcohol or drug abuse patient.[facility] the event this information is protected by the Federal Confidentiality of Alcohol and Drug Abuse Patient Records regulations: The Federal rules restrict any use of the information to criminally investigate or prosecute any alcohol or drug abuse patient.[facility] the event this information is protected by the Federal Confidentiality of Alcohol and Drug Abuse Patient Records regulations: The Federal rules restrict any use of the information to criminally investigate or prosecute any alcohol or drug abuse patient.[facility] the event this information is protected by the Federal Confidentiality of Alcohol and Drug Abuse Patient Records regulations: The Federal rules restrict any use of the information to criminally investigate or prosecute any alcohol or drug abuse patient.[facility] the event this information is protected by the Federal Confidentiality of Alcohol and Drug Abuse Patient Records regulations: The Federal rules restrict any use of the information to criminally investigate or prosecute any alcohol or drug abuse patient.[facility] the event this information is protected by the Federal Confidentiality of Alcohol and Drug Abuse Patient Records regulations: The Federal rules restrict any use of the information to criminally investigate or prosecute any alcohol or drug abuse patient.[facility] the event this information is protected by the Federal Confidentiality of Alcohol and Drug Abuse Patient Records regulations: The Federal rules restrict any use of the information to criminally investigate or prosecute any alcohol or drug abuse patient.[facility] the event this information is protected by the Federal Confidentiality of Alcohol and Drug Abuse Patient Records regulations: The Federal rules restrict any use of the information to criminally investigate or prosecute any alcohol or drug abuse patient.[facility] the event this information is protected by the Federal Confidentiality of Alcohol and Drug Abuse Patient Records regulations: The Federal rules restrict any use of the information to criminally investigate or prosecute any alcohol or drug abuse patient.[facility] the event this information is protected by the Federal Confidentiality of Alcohol and Drug Abuse Patient Records regulations: The Federal rules restrict any use of the information to criminally investigate or prosecute any alcohol or drug abuse patient.[facility] the event this information is protected by the Federal Confidentiality of Alcohol and Drug Abuse Patient Records regulations: The Federal rules restrict any use of the information to criminally investigate or prosecute any alcohol or drug abuse patient.[facility] the event this information is protected by the Federal Confidentiality of Alcohol and Drug Abuse Patient Records regulations: The Federal rules restrict any use of the information to criminally investigate or prosecute any alcohol or drug abuse patient.[facility] the event this information is protected by the Federal Confidentiality of Alcohol and Drug Abuse Patient Records regulations: The Federal rules restrict any use of the information to criminally investigate or prosecute any alcohol or drug abuse patient.[facility] Hospital[facility] the event this information is protected by the Federal Confidentiality of Alcohol and Drug Abuse Patient Records regulations: The Federal rules restrict any use of the information to criminally investigate or prosecute any alcohol or drug abuse patient.[facility] Hospital[facility] the event this information is protected by the Federal Confidentiality of Alcohol and Drug Abuse Patient Records regulations: The Federal rules restrict any use of the information to criminally investigate or prosecute any alcohol or drug abuse patient.[facility] Hospital[facility] the event this information is protected by the Federal Confidentiality of Alcohol and Drug Abuse Patient Records regulations: The Federal rules restrict any use of the information to criminally investigate or prosecute any alcohol or drug abuse patient.[facility] Hospital[facility] the event this information is protected by the Federal Confidentiality of Alcohol and Drug Abuse Patient Records regulations: The Federal rules restrict any use of the information to criminally investigate or prosecute any alcohol or drug abuse patient.[facility] HospitalIn the event this information is protected by the Federal Confidentiality of Alcohol and Drug Abuse Patient Records regulations: The Federal rules restrict any use of the information to criminally investigate or prosecute any alcohol or drug abuse patient.[facility] HospitalIn the event this information is protected by the Federal Confidentiality of Alcohol and Drug Abuse Patient Records regulations: The Federal rules restrict any use of the information to criminally investigate or prosecute any alcohol or drug abuse patient.[facility] HospitalIn the event this information is protected by the Federal Confidentiality of Alcohol and Drug Abuse Patient Records regulations: The Federal rules restrict any use of the information to criminally investigate or prosecute any alcohol or drug abuse patient.[facility] HospitalIn the event this information is protected by the Federal Confidentiality of Alcohol and Drug Abuse Patient Records regulations: The Federal rules restrict any use of the information to criminally investigate or prosecute any alcohol or drug abuse patient.[facility] HospitalIn the event this information is protected by the Federal Confidentiality of Alcohol and Drug Abuse Patient Records regulations: The Federal rules restrict any use of the information to criminally investigate or prosecute any alcohol or drug abuse patient.[facility] HospitalIn the event this information is protected by the Federal Confidentiality of Alcohol and Drug Abuse Patient Records regulations: The Federal rules restrict any use of the information to criminally investigate or prosecute any alcohol or drug abuse patient.[facility] HospitalIn the event this information is protected by the Federal Confidentiality of Alcohol and Drug Abuse Patient Records regulations: The Federal rules restrict any use of the information to criminally investigate or prosecute any alcohol or drug abuse patient.[facility] HospitalIn the event this information is protected by the Federal Confidentiality of Alcohol and Drug Abuse Patient Records regulations: The Federal rules restrict any use of the information to criminally investigate or prosecute any alcohol or drug abuse patient.[facility] HospitalIn the event this information is protected by the Federal Confidentiality of Alcohol and Drug Abuse Patient Records regulations: The Federal rules restrict any use of the information to criminally investigate or prosecute any alcohol or drug abuse patient.[facility] HospitalIn the event this information is protected by the Federal Confidentiality of Alcohol and Drug Abuse Patient Records regulations: The Federal rules restrict any use of the information to criminally investigate or prosecute any alcohol or drug abuse patient.[facility] HospitalIn the event this information is protected by the Federal Confidentiality of Alcohol and Drug Abuse Patient Records regulations: The Federal rules restrict any use of the information to criminally investigate or prosecute any alcohol or drug abuse patient.[facility] HospitalIn the event this information is protected by the Federal Confidentiality of Alcohol and Drug Abuse Patient Records regulations: The Federal rules restrict any use of the information to criminally investigate or prosecute any alcohol or drug abuse patient.[facility] HospitalIn the event this information is protected by the Federal Confidentiality of Alcohol and Drug Abuse Patient Records regulations: The Federal rules restrict any use of the information to criminally investigate or prosecute any alcohol or drug abuse patient.[facility] HospitalIn the event this information is protected by the Federal Confidentiality of Alcohol and Drug Abuse Patient Records regulations: The Federal rules restrict any use of the information to criminally investigate or prosecute any alcohol or drug abuse patient.[facility] HospitalIn the event this information is protected by the Federal Confidentiality of Alcohol and Drug Abuse Patient Records regulations: The Federal rules restrict any use of the information to criminally investigate or prosecute any alcohol or drug abuse patient.[facility] HospitalIn the event this information is protected by the Federal Confidentiality of Alcohol and Drug Abuse Patient Records regulations: The Federal rules restrict any use of the information to criminally investigate or prosecute any alcohol or drug abuse patient.[facility] HospitalIn the event this information is protected by the Federal Confidentiality of Alcohol and Drug Abuse Patient Records regulations: The Federal rules restrict any use of the information to criminally investigate or prosecute any alcohol or drug abuse patient.[facility] HospitalIn the event this information is protected by the Federal Confidentiality of Alcohol and Drug Abuse Patient Records regulations: The Federal rules restrict any use of the information to criminally investigate or prosecute any alcohol or drug abuse patient.[facility] HospitalIn the event this information is protected by the Federal Confidentiality of Alcohol and Drug Abuse Patient Records regulations: The Federal rules restrict any use of the information to criminally investigate or prosecute any alcohol or drug abuse patient.[facility] HospitalIn the event this information is protected by the Federal Confidentiality of Alcohol and Drug Abuse Patient Records regulations: The Federal rules restrict any use of the information to criminally investigate or prosecute any alcohol or drug abuse patient.[facility] HospitalIn the event this information is protected by the Federal Confidentiality of Alcohol and Drug Abuse Patient Records regulations: The Federal rules restrict any use of the information to criminally investigate or prosecute any alcohol or drug abuse patient.[facility] HospitalIn the event this information is protected by the Federal Confidentiality of Alcohol and Drug Abuse Patient Records regulations: The Federal rules restrict any use of the information to criminally investigate or prosecute any alcohol or drug abuse patient.[facility] HospitalIn the event this information is protected by the Federal Confidentiality of Alcohol and Drug Abuse Patient Records regulations: The Federal rules restrict any use of the information to criminally investigate or prosecute any alcohol or drug abuse patient.[facility] HospitalIn the event this information is protected by the Federal Confidentiality of Alcohol and Drug Abuse Patient Records regulations: The Federal rules restrict any use of the information to criminally investigate or prosecute any alcohol or drug abuse patient.[facility] HospitalIn the event this information is protected by the Federal Confidentiality of Alcohol and Drug Abuse Patient Records regulations: The Federal rules restrict any use of the information to criminally investigate or prosecute any alcohol or drug abuse patient.[facility] HospitalIn the event this information is protected by the Federal Confidentiality of Alcohol and Drug Abuse Patient Records regulations: The Federal rules restrict any use of the information to criminally investigate or prosecute any alcohol or drug abuse patient.[facility] HospitalIn the event this information is protected by the Federal Confidentiality of Alcohol and Drug Abuse Patient Records regulations: The Federal rules restrict any use of the information to criminally investigate or prosecute any alcohol or drug abuse patient.[facility] HospitalIn the event this information is protected by the Federal Confidentiality of Alcohol and Drug Abuse Patient Records regulations: The Federal rules restrict any use of the information to criminally investigate or prosecute any alcohol or drug abuse patient.[facility] HospitalIn the event this information is protected by the Federal Confidentiality of Alcohol and Drug Abuse Patient Records regulations: The Federal rules restrict any use of the information to criminally investigate or prosecute any alcohol or drug abuse patient.[facility] HospitalIn the event this information is protected by the Federal Confidentiality of Alcohol and Drug Abuse Patient Records regulations: The Federal rules restrict any use of the information to criminally investigate or prosecute any alcohol or drug abuse patient.[facility] HospitalIn the event this information is protected by the Federal Confidentiality of Alcohol and Drug Abuse Patient Records regulations: The Federal rules restrict any use of the information to criminally investigate or prosecute any alcohol or drug abuse patient.[facility] HospitalIn the event this information is protected by the Federal Confidentiality of Alcohol and Drug Abuse Patient Records regulations: The Federal rules restrict any use of the information to criminally investigate or prosecute any alcohol or drug abuse patient.[facility] HospitalIn the event this information is protected by the Federal Confidentiality of Alcohol and Drug Abuse Patient Records regulations: The Federal rules restrict any use of the information to criminally investigate or prosecute any alcohol or drug abuse patient.[facility] HospitalIn the event this information is protected by the Federal Confidentiality of Alcohol and Drug Abuse Patient Records regulations: The Federal rules restrict any use of the information to criminally investigate or prosecute any alcohol or drug abuse patient.[facility] HospitalIn the event this information is protected by the Federal Confidentiality of Alcohol and Drug Abuse Patient Records regulations: The Federal rules restrict any use of the information to criminally investigate or prosecute any alcohol or drug abuse patient.[facility] HospitalIn the event this information is protected by the Federal Confidentiality of Alcohol and Drug Abuse Patient Records regulations: The Federal rules restrict any use of the information to criminally investigate or prosecute any alcohol or drug abuse patient.[facility] HospitalIn the event this information is protected by the Federal Confidentiality of Alcohol and Drug Abuse Patient Records regulations: The Federal rules restrict any use of the information to criminally investigate or prosecute any alcohol or drug abuse patient.[facility] HospitalIn the event this information is protected by the Federal Confidentiality of Alcohol and Drug Abuse Patient Records regulations: The Federal rules restrict any use of the information to criminally investigate or prosecute any alcohol or drug abuse patient.[facility] HospitalIn the event this information is protected by the Federal Confidentiality of Alcohol and Drug Abuse Patient Records regulations: The Federal rules restrict any use of the information to criminally investigate or prosecute any alcohol or drug abuse patient.[facility] HospitalIn the event this information is protected by the Federal Confidentiality of Alcohol and Drug Abuse Patient Records regulations: The Federal rules restrict any use of the information to criminally investigate or prosecute any alcohol or drug abuse patient.[facility] HospitalIn the event this information is protected by the Federal Confidentiality of Alcohol and Drug Abuse Patient Records regulations: The Federal rules restrict any use of the information to criminally investigate or prosecute any alcohol or drug abuse patient.[facility] HospitalIn the event this information is protected by the Federal Confidentiality of Alcohol and Drug Abuse Patient Records regulations: The Federal rules restrict any use of the information to criminally investigate or prosecute any alcohol or drug abuse patient.[facility] HospitalIn the event this information is protected by the Federal Confidentiality of Alcohol and Drug Abuse Patient Records regulations: The Federal rules restrict any use of the information to criminally investigate or prosecute any alcohol or drug abuse patient.[facility] HospitalIn the event this information is protected by the Federal Confidentiality of Alcohol and Drug Abuse Patient Records regulations: The Federal rules restrict any use of the information to criminally investigate or prosecute any alcohol or drug abuse patient.[facility] HospitalIn the event this information is protected by the Federal Confidentiality of Alcohol and Drug Abuse Patient Records regulations: The Federal rules restrict any use of the information to criminally investigate or prosecute any alcohol or drug abuse patient.[facility] HospitalIn the event this information is protected by the Federal Confidentiality of Alcohol and Drug Abuse Patient Records regulations: The Federal rules restrict any use of the information to criminally investigate or prosecute any alcohol or drug abuse patient.[facility] HospitalIn the event this information is protected by the Federal Confidentiality of Alcohol and Drug Abuse Patient Records regulations: The Federal rules restrict any use of the information to criminally investigate or prosecute any alcohol or drug abuse patient.[facility] HospitalIn the event this information is protected by the Federal Confidentiality of Alcohol and Drug Abuse Patient Records regulations: The Federal rules restrict any use of the information to criminally investigate or prosecute any alcohol or drug abuse patient.[facility] HospitalIn the event this information is protected by the Federal Confidentiality of Alcohol and Drug Abuse Patient Records regulations: The Federal rules restrict any use of the information to criminally investigate or prosecute any alcohol or drug abuse patient.[facility] HospitalIn the event this information is protected by the Federal Confidentiality of Alcohol and Drug Abuse Patient Records regulations: The Federal rules restrict any use of the information to criminally investigate or prosecute any alcohol or drug abuse patient.[facility] HospitalIn the event this information is protected by the Federal Confidentiality of Alcohol and Drug Abuse Patient Records regulations: The Federal rules restrict any use of the information to criminally investigate or prosecute any alcohol or drug abuse patient.[facility] HospitalIn the event this information is protected by the Federal Confidentiality of Alcohol and Drug Abuse Patient Records regulations: The Federal rules restrict any use of the information to criminally investigate or prosecute any alcohol or drug abuse patient.[facility] HospitalIn the event this information is protected by the Federal Confidentiality of Alcohol and Drug Abuse Patient Records regulations: The Federal rules restrict any use of the information to criminally investigate or prosecute any alcohol or drug abuse patient.[facility] HospitalIn the event this information is protected by the Federal Confidentiality of Alcohol and Drug Abuse Patient Records regulations: The Federal rules restrict any use of the information to criminally investigate or prosecute any alcohol or drug abuse patient.[facility] HospitalIn the event this information is protected by the Federal Confidentiality of Alcohol and Drug Abuse Patient Records regulations: The Federal rules restrict any use of the information to criminally investigate or prosecute any alcohol or drug abuse patient.[facility] HospitalIn the event this information is protected by the Federal Confidentiality of Alcohol and Drug Abuse Patient Records regulations: The Federal rules restrict any use of the information to criminally investigate or prosecute any alcohol or drug abuse patient.[facility] HospitalIn the event this information is protected by the Federal Confidentiality of Alcohol and Drug Abuse Patient Records regulations: The Federal rules restrict any use of the information to criminally investigate or prosecute any alcohol or drug abuse patient.[facility] HospitalIn the event this information is protected by the Federal Confidentiality of Alcohol and Drug Abuse Patient Records regulations: The Federal rules restrict any use of the information to criminally investigate or prosecute any alcohol or drug abuse patient.[facility] HospitalIn the event this information is protected by the Federal Confidentiality of Alcohol and Drug Abuse Patient Records regulations: The Federal rules restrict any use of the information to criminally investigate or prosecute any alcohol or drug abuse patient.[facility] HospitalIn the event this information is protected by the Federal Confidentiality of Alcohol and Drug Abuse Patient Records regulations: The Federal rules restrict any use of the information to criminally investigate or prosecute any alcohol or drug abuse patient.[facility] HospitalIn the event this information is protected by the Federal Confidentiality of Alcohol and Drug Abuse Patient Records regulations: The Federal rules restrict any use of the information to criminally investigate or prosecute any alcohol or drug abuse patient.[facility] HospitalIn the event this information is protected by the Federal Confidentiality of Alcohol and Drug Abuse Patient Records regulations: The Federal rules restrict any use of the information to criminally investigate or prosecute any alcohol or drug abuse patient.[facility] HospitalIn the event this information is protected by the Federal Confidentiality of Alcohol and Drug Abuse Patient Records regulations: The Federal rules restrict any use of the information to criminally investigate or prosecute any alcohol or drug abuse patient.[facility] HospitalIn the event this information is protected by the Federal Confidentiality of Alcohol and Drug Abuse Patient Records regulations: The Federal rules restrict any use of the information to criminally investigate or prosecute any alcohol or drug abuse patient.[facility] HospitalIn the event this information is protected by the Federal Confidentiality of Alcohol and Drug Abuse Patient Records regulations: The Federal rules restrict any use of the information to criminally investigate or prosecute any alcohol or drug abuse patient.[facility] HospitalIn the event this information is protected by the Federal Confidentiality of Alcohol and Drug Abuse Patient Records regulations: The Federal rules restrict any use of the information to criminally investigate or prosecute any alcohol or drug abuse patient.[facility] HospitalIn the event this information is protected by the Federal Confidentiality of Alcohol and Drug Abuse Patient Records regulations: The Federal rules restrict any use of the information to criminally investigate or prosecute any alcohol or drug abuse patient.[facility] HospitalIn the event this information is protected by the Federal Confidentiality of Alcohol and Drug Abuse Patient Records regulations: The Federal rules restrict any use of the information to criminally investigate or prosecute any alcohol or drug abuse patient.[facility] HospitalIn the event this information is protected by the Federal Confidentiality of Alcohol and Drug Abuse Patient Records regulations: The Federal rules restrict any use of the information to criminally investigate or prosecute any alcohol or drug abuse patient.[facility] HospitalIn the event this information is protected by the Federal Confidentiality of Alcohol and Drug Abuse Patient Records regulations: The Federal rules restrict any use of the information to criminally investigate or prosecute any alcohol or drug abuse patient.[facility] HospitalIn the event this information is protected by the Federal Confidentiality of Alcohol and Drug Abuse Patient Records regulations: The Federal rules restrict any use of the information to criminally investigate or prosecute any alcohol or drug abuse patient.[facility] HospitalIn the event this information is protected by the Federal Confidentiality of Alcohol and Drug Abuse Patient Records regulations: The Federal rules restrict any use of the information to criminally investigate or prosecute any alcohol or drug abuse patient.[facility] HospitalIn the event this information is protected by the Federal Confidentiality of Alcohol and Drug Abuse Patient Records regulations: The Federal rules restrict any use of the information to criminally investigate or prosecute any alcohol or drug abuse patient.[facility] HospitalIn the event this information is protected by the Federal Confidentiality of Alcohol and Drug Abuse Patient Records regulations: The Federal rules restrict any use of the information to criminally investigate or prosecute any alcohol or drug abuse patient.[facility] HospitalIn the event this information is protected by the Federal Confidentiality of Alcohol and Drug Abuse Patient Records regulations: The Federal rules restrict any use of the information to criminally investigate or prosecute any alcohol or drug abuse patient.[facility] HospitalIn the event this information is protected by the Federal Confidentiality of Alcohol and Drug Abuse Patient Records regulations: The Federal rules restrict any use of the information to criminally investigate or prosecute any alcohol or drug abuse patient.[facility] HospitalIn the event this information is protected by the Federal Confidentiality of Alcohol and Drug Abuse Patient Records regulations: The Federal rules restrict any use of the information to criminally investigate or prosecute any alcohol or drug abuse patient.[facility] HospitalIn the event this information is protected by the Federal Confidentiality of Alcohol and Drug Abuse Patient Records regulations: The Federal rules restrict any use of the information to criminally investigate or prosecute any alcohol or drug abuse patient.[facility] HospitalIn the event this information is protected by the Federal Confidentiality of Alcohol and Drug Abuse Patient Records regulations: The Federal rules restrict any use of the information to criminally investigate or prosecute any alcohol or drug abuse patient.[facility] HospitalIn the event this information is protected by the Federal Confidentiality of Alcohol and Drug Abuse Patient Records regulations: The Federal rules restrict any use of the information to criminally investigate or prosecute any alcohol or drug abuse patient.[facility] HospitalIn the event this information is protected by the Federal Confidentiality of Alcohol and Drug Abuse Patient Records regulations: The Federal rules restrict any use of the information to criminally investigate or prosecute any alcohol or drug abuse patient.[facility] HospitalIn the event this information is protected by the Federal Confidentiality of Alcohol and Drug Abuse Patient Records regulations: The Federal rules restrict any use of the information to criminally investigate or prosecute any alcohol or drug abuse patient.[facility] HospitalIn the event this information is protected by the Federal Confidentiality of Alcohol and Drug Abuse Patient Records regulations: The Federal rules restrict any use of the information to criminally investigate or prosecute any alcohol or drug abuse patient.[facility] HospitalIn the event this information is protected by the Federal Confidentiality of Alcohol and Drug Abuse Patient Records regulations: The Federal rules restrict any use of the information to criminally investigate or prosecute any alcohol or drug abuse patient.[facility] HospitalIn the event this information is protected by the Federal Confidentiality of Alcohol and Drug Abuse Patient Records regulations: The Federal rules restrict any use of the information to criminally investigate or prosecute any alcohol or drug abuse patient.[facility] HospitalIn the event this information is protected by the Federal Confidentiality of Alcohol and Drug Abuse Patient Records regulations: The Federal rules restrict any use of the information to criminally investigate or prosecute any alcohol or drug abuse patient.[facility] HospitalIn the event this information is protected by the Federal Confidentiality of Alcohol and Drug Abuse Patient Records regulations: The Federal rules restrict any use of the information to criminally investigate or prosecute any alcohol or drug abuse patient.[facility] Hospital[facility] the event this information is protected by the Federal Confidentiality of Alcohol and Drug Abuse Patient Records regulations: The Federal rules restrict any use of the information to criminally investigate or prosecute any alcohol or drug abuse patient.[facility] HospitalIn the event this information is protected by the Federal Confidentiality of Alcohol and Drug Abuse Patient Records regulations: The Federal rules restrict any use of the information to criminally investigate or prosecute any alcohol or drug abuse patient.[facility] Reason for Visit (unrecogniz ed section and content) Reason Comments Follow Up Specialty Diagnoses / Procedures Referred By Contac t Referred To Contact Family Practice / FAMILY MEDICINE Diagnoses Follow up/not seen since 02/2020 Procedures 4C EST Self Corrina Lennon, BULK PL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 [address] [place] [address] Referral ID Status Reason Start Date Expiration Date V isits Requested Visits Authorized [id number] Closed Patient Cleared - INN Insurance Found [...] Date Comments Population Health Navigation Outreach 06/14/2022 [facility] care gaps Reason Onset Date Comments Anticoagulation 06/06/2022 Home INR Reason Onset Date Comments Anticoagulation 2022 INR result Reason Onset Date Comments Refill Request 07/22/2022 Reason Onset Date Comments Anticoagulation Telephone Fu 08/01/2022 Gabrielle e INR Result Reason Comments Consult Specialty Diagnoses / Procedures Referred By Anival aden Referred To Contact Cardiology / CARD ADMIN [facility] Diagnoses Paroxysmal atrial fibrillation (HCC) Nonrheumatic aortic valve stenosis Procedures CONSULT TO CARDIOLOGY OFFICE/OUTPATIENT [facility] 60-74 MINUTES Corrina Lennon, BULK PL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 [address] [place] [address] Card Admin [facility] [address] [place] [address] Referral ID Status Reason Start Date Expiration Date V isits Requested Visits Authorized [id number] Closed PCP Requested Referral 02/28/2022 10/15/2022 1 [...] Telephone Fu 03/07/2024 Reason Onset Date Comments [facility] LU[facility] RN 03/08/2024 Medication ad herence and [...] REAL TIME W/IMAGE COMPLETE Guanakito Reno MD [address] [place] [address] [place] [address] Referral ID Status Reason Start Date Expiration Date V isits Requested Visits Authorized [id number] Closed Auto-Generate d Referral 03/26/2024 04/25/2025 1 1 Reason Comments Follow Up htn- ultrasound on k idneys and labs, family worried about falls 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 Edema Bilateral leg [...] 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 [address] [place] [address] Referral ID Status Reason Start Date Expiration Date Visits Re quested Visits Authorized [id number] 1 1 Reason Onset Date Comments Anticoagulation [...] e INR Result Reason Comments Faxed to [facility] Reason Onset Date Comments Refill Request 04/08/2025 Reason Comments Patient Question Care Teams (unrecognized sec tion and content) Senior Systems Architect Relationship Specialty Start Date End Date Guanakito Reno MD [address] [place], [place] [address] PCP - [facility] Family Practice 05/24/18 13, Pharmacist [address] [place], [place] [id number] Pharmacist Pharmacy 05/31/21 Senior Systems Architect Relationship Specialty Start Date End Date Guanakito Reno MD [address] [place], [place] [id number] PCP - General Family Practice 05/24/18 13, Pharmacist [address] [place] [address] Pharmacist Pharmacy 05/31/21 Senior Systems Architect Relationship Specialty Start Date End Date Guanakito Reno MD [address] [place] [address] PCP - General Family Practice 05/24/18 13, Pharmacist [address] [place] [address] Pharmacist Pharmacy 05/31/21 Senior Systems Architect Relationship Specialty Start Date End Date Guanakito Reno MD [address] [place] [address] PCP - General Family Practice 05/24/18 13, Pharmacist [phone] [place] [address] Pharmacist Pharmacy 05/31/21 Senior Systems Architect Relationship Specialty Start Date End Date Guanakito Reno MD [address] [place] [address] PCP - General Family Practice 05/24/18 13, Pharmacist [address]119 [place] [address] Pharmacist Pharmacy 05/31/21 Senior Systems Architect Relationship Specialty Start Date End Date Guanakito Reno MD [address] [place] [address] PCP - General Family Practice 05/24/18 13, Pharmacist [phone] [place] [address], [place] [address] Pharmacist Pharmacy 05/31/21 Senior Systems Architect Relationship Specialty Start Date End Date Guanakito Reno MD [address] [facility] [place] [address] PCP - General Family Practice 05/24/18 13, Pharmacist [address]79 [place] [address] Pharmacist Pharmacy 05/31/21 Senior Systems Architect Relationship Specialty Start Date End Date Guanakito Reno MD [address] [place] [address] PCP - General Family Practice 05/24/18 13, Pharmacist [address] [place] [address] Pharmacist Pharmacy 05/31/21 Senior Systems Architect Relationship Specialty Start Date End Date Guanakito Reno MD [address] [place] [address] PCP - General Family Practice 05/24/18 13, Pharmacist [address] [place] [address] Pharmacist Pharmacy 05/31/21 Senior Systems Architect Relationship Specialty Start Date End Date Guanakito Reno MD [address] [place] [address] PCP - General Family Medicine 05/24/18 13, Pharmacist [address] [place] [address] Pharmacist Pharmacy 05/31/21 Senior Systems Architect Relationship Specialty Start Date End Date Guanakito Reno MD [facility] [place] [address] PCP - General Family Medicine 05/24/18 13, Pharmacist [address]222 [place] [address] Pharmacist Pharmacy 05/31/21 Senior Systems Architect Relationship Specialty Start Date End Date Guanakito Reno MD [address] [place] [address] PCP - General Family Medicine 05/24/18 13, Pharmacist [address]605 [place] [address] Pharmacist Pharmacy 05/31/21 Senior Systems Architect Relationship Specialty Start Date End Date Guanakito Reno MD [facility] [place] [address] PCP - General Family Medicine 05/24/18 13, Pharmacist [address] [place] [address] Pharmacist Pharmacy 05/31/21 Senior Systems Architect Relationship Specialty Start Date End Date Guanakito Reno MD [address] [place] [address] PCP - General Family Medicine 05/24/18, Pharmacist [phone] [place] [address] Pharmacist Pharmacy 05/31/21 Senior Systems Architect Relationship Specialty Start Date End Date Guanakito Reno MD [address] [place] [address] PCP - General Family Medicine 05/24/18, Pharmacist [phone] [place] [address] Pharmacist Pharmacy 05/31/21 Senior Systems Architect Relationship Specialty Start Date End Date Guanakito Reno MD [address] [place] [address] PCP - General Family Medicine 05/24/18, Pharmacist [phone] [place] [address] Pharmacist Pharmacy 05/31/21 Senior Systems Architect Relationship Specialty Start Date End Date Guanakito Reno MD [address] [place] [address] PCP - General Family Medicine 05/24/18, Pharmacist [phone] [place] [address] Pharmacist Pharmacy 05/31/21 Senior Systems Architect Relationship Specialty Start Date End Date Guanakito Reno MD [address] [place] [address] PCP - General Family Medicine 05/24/18 13, Pharmacist [address] [place] [address] Pharmacist Pharmacy 05/31/21 Senior Systems Architect Relationship Specialty Start Date End Date Guanakito Reno MD [address] [place] [address] PCP - General Family Medicine 05/24/18 13, Pharmacist [address] [place] [address] Pharmacist Pharmacy 05/31/21 Senior Systems Architect Relationship Specialty Start Date End Date Guanakito Reno MD [address] [facility] [place] [address] PCP - General Family Medicine 05/24/18 13, Pharmacist [address]504 [place] [address] Pharmacist Pharmacy 05/31/21 Senior Systems Architect Relationship Specialty Start Date End Date Guanakito Reno MD [address] [place] [address] PCP - General Family Medicine 05/24/18 13, Pharmacist [address]057 [place] [address] Pharmacist Pharmacy 05/31/21 Senior Systems Architect Relationship Specialty Start Date End Date Guanakito Reno MD [address] [place] [address] PCP - General Family Medicine 05/24/18 13, Pharmacist [address]20 [place] [address] Pharmacist Pharmacy 05/31/21 Senior Systems Architect Relationship Specialty Start Date End Date Guanakito Reno MD [address] [place] [address] PCP - General Family Medicine 05/24/18 13, Pharmacist [address]16 [place] [address] Pharmacist Pharmacy 05/31/21 Senior Systems Architect Relationship Specialty Start Date End Date Guanakito Reno MD [address] [place] [address] PCP - General Family Medicine 05/24/18 13, Pharmacist [address]59 [place] [address] Pharmacist Pharmacy 05/31/21 Senior Systems Architect Relationship Specialty Start Date End Date Guanakito Reon MD [address] [place] [address] PCP - General Family Medicine 05/24/18 13, Pharmacist [address] [place] [address] Pharmacist Pharmacy 05/31/21 Senior Systems Architect Relationship Specialty Start Date End Date Guanakito Reno MD [address] [place] [address] PCP - General Family Medicine 05/24/18 13, Pharmacist [address] [place] [address] Pharmacist Pharmacy 05/31/21 Senior Systems Architect Relationship Specialty Start Date End Date Guanakito Reno MD [address] [place] [address] PCP - General Family Medicine 05/24/18, Pharmacist [address] [place] [address] Pharmacist Pharmacy 05/31/21 Senior Systems Architect Relationship Specialty Start Date End Date Guanakito Reno MD [address] [place] [address] PCP - General Family Medicine 05/24/18, Pharmacist [address] [place] [address] Pharmacist Pharmacy 05/31/21 Senior Systems Architect Relationship Specialty Start Date End Date Guanakito Reno MD [address] [place] [address] PCP - General Family Medicine 05/24/18 13, Pharmacist [address] [place] [address] Pharmacist Pharmacy 05/31/21 Senior Systems Architect Relationship Specialty Start Date End Date Guanakito Reno MD [address] [place] [address] PCP - General Family Medicine 05/24/18 13, Pharmacist [address] [place] [address] Pharmacist Pharmacy 05/31/21 Senior Systems Architect Relationship Specialty Start Date End Date Guanakito Reno MD [address] [place] [address] PCP - General Family Medicine 05/24/18 13, Pharmacist [address] [place] [address] Pharmacist Pharmacy 05/31/21 Senior Systems Architect Relationship Specialty Start Date End Date Guanakito Reno MD [address] [place] [address] PCP - General Family Medicine 05/24/18, Pharmacist [address] [place] [address] Pharmacist Pharmacy 05/31/21 Senior Systems Architect Relationship Specialty Start Date End Date Guanakito Reno MD [address] [place] [address] PCP - General Family Medicine 05/24/18, Pharmacist [address] [place] [address] Pharmacist Pharmacy 05/31/21 Senior Systems Architect Relationship Specialty Start Date End Date Guanakito Reno MD [address] [place] [address] PCP - General Family Medicine 05/24/18 13, Pharmacist [address] [place] [address] Pharmacist Pharmacy 05/31/21 Senior Systems Architect Relationship Specialty Start Date End Date Guanakito Reno MD [address] [place] [address] PCP - General Family Medicine 05/24/18 13, Pharmacist [address] [place] [address] Pharmacist Pharmacy 05/31/21 Senior Systems Architect Relationship Specialty Start Date End Date Guanakito Reno MD [address] [place] [address] PCP - General Family Medicine 05/24/18 13, Pharmacist [address] [place] [address] Pharmacist Pharmacy 05/31/21 Senior Systems Architect Relationship Specialty Start Date End Date Guanakito Reno MD [address] [place] [address] PCP - General Family Medicine 05/24/18 13, Pharmacist [address] [place] [address] Pharmacist Pharmacy 05/31/21 Senior Systems Architect Relationship Specialty Start Date End Date Gunaakito Reno MD [address] [place] [address] PCP - General Family Medicine 05/24/18 13, Pharmacist [address] [place] [address] Pharmacist Pharmacy 05/31/21 Senior Systems Architect Relationship Specialty Start Date End Date Guanakito Reno MD [address] [place] [address] PCP - General Family Medicine 05/24/18 13, Pharmacist [address] [place] [address] Pharmacist Pharmacy 05/31/21 Senior Systems Architect Relationship Specialty Start Date End Date Guanakito Reno MD [address] [place] [address] PCP - General Family Medicine 05/24/18 13, Pharmacist [address] [place] [address] Pharmacist Pharmacy 05/31/21 Senior Systems Architect Relationship Specialty Start Date End Date Guanakito Reno MD [address] [place] [address] PCP - General Family Medicine 05/24/18 13, Pharmacist [address] [place] [address] Pharmacist Pharmacy 05/31/21 Senior Systems Architect Relationship Specialty Start Date End Date Guanakito Reno MD [address] [place] [address] PCP - General Family Medicine 05/24/18 13, Pharmacist [address] [place] [address] Pharmacist Pharmacy 05/31/21 Senior Systems Architect Relationship Specialty Start Date End Date Guanakito Reno MD [address] [place] [address] PCP - General Family Medicine 05/24/18 13, Pharmacist [address] [place] [address] Pharmacist Pharmacy 05/31/21 Senior Systems Architect Relationship Specialty Start Date End Date Guanakito Reno MD [address] [place] [address] PCP - General Family Medicine 05/24/18 13, Pharmacist [address] [place] [address] Pharmacist Pharmacy 05/31/21 Senior Systems Architect Relationship Specialty Start Date End Date Guanakito Reno MD [address] [place] [address] PCP - General Family Medicine 05/24/18 13, Pharmacist [address] [place] [address] Pharmacist Pharmacy 05/31/21 Senior Systems Architect Relationship Specialty Start Date End Date Guanakito Reno MD [address] [place] [address] PCP - General Family Medicine 05/24/18 13, Pharmacist [address] [place] [address] Pharmacist Pharmacy 05/31/21 Senior Systems Architect Relationship Specialty Start Date End Date Guanakito Reno MD [address] [place] [address] PCP - General Family Medicine 05/24/18 13, Pharmacist [address] [place] [address] Pharmacist Pharmacy 05/31/21 Senior Systems Architect Relationship Specialty Start Date End Date Guanakito Reno MD [address] [place] [address] PCP - General Family Medicine 05/24/18, Pharmacist [address] [place] [address] Pharmacist Pharmacy 05/31/21 Senior Systems Architect Relationship Specialty Start Date End Date Guanakito Reno MD [address] [place] [address] PCP - General Family Medicine 05/24/18, Pharmacist [address] [place] [address] Pharmacist Pharmacy 05/31/21 Senior Systems Architect Relationship Specialty Start Date End Date Guanakito Reno MD [address] [place] [address] PCP - General Family Medicine 05/24/18 13, Pharmacist [address] [place] [address] Pharmacist Pharmacy 05/31/21 Senior Systems Architect Relationship Specialty Start Date End Date Guanakito Reno MD [address] [place] [address] PCP - General Family Medicine 05/24/18 13, Pharmacist [address] [place] [address] Pharmacist Pharmacy 05/31/21 Senior Systems Architect Relationship Specialty Start Date End Date Guanakito Reno MD [address] [facility] [place] [address] PCP - General Family Medicine 05/24/18 13, Pharmacist [address] [place] [address] Pharmacist Pharmacy 05/31/21 Corrina Lennon APRN.AIR ROUTE TRAFFIC CONTROLLER [address] [place] [address] Brake Drum Molder Family Medicine 09/23/24 Carolina Landeros APRN.AIR ROUTE TRAFFIC CONTROLLER [address] [place] [address] Brake Drum Molder Family Medicine 09/23/24 Senior Systems Architect Relationship Specialty Start Date End Date Guanakito Reno MD [address] [place] [address] PCP - General Family Medicine 05/24/18 13, Pharmacist [address] [place] [address] Pharmacist Pharmacy 05/31/21 Corrina Lennon APRN.AIR ROUTE TRAFFIC CONTROLLER [address] [place] [address] Brake Drum Molder Family Medicine 09/23/24 Carolina Landeros APRN.AIR ROUTE TRAFFIC CONTROLLER [address] [place] [address] Brake Drum Molder Family Medicine 09/23/24 Senior Systems Architect Relationship Specialty Start Date End Date Guanakito Reno MD [address] [place] [address] PCP - General Family Medicine 05/24/18 13, Pharmacist [address] [place] [address] Pharmacist Pharmacy 05/31/21 Corrina Lennon APRN.AIR ROUTE TRAFFIC CONTROLLER [address] [place] [address] Brake Drum Molder Family Medicine 09/23/24 Carolina Landeros BULK PL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 [address] [place] [address] Brake Drum Molder Family Medicine 09/23/24 Senior Systems Architect Relationship Specialty Start Date End Date Guanakito Reno MD [address] [place] [address] PCP - General Family Medicine 05/24/18 13, Pharmacist [address] [place] [address] Pharmacist Pharmacy 05/31/21 Corrina Lennon BULK PL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 [address] [place] [address] Brake Drum Molder Family Medicine 09/23/24 Carolina Landeros BULK PL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 [address] [place] [address] Brake Drum Molder Family Medicine 09/23/24 Senior Systems Architect Relationship Specialty Start Date End Date Guanakito Reno MD [address] [place] [address] PCP - General Family Medicine 05/24/18 13, Pharmacist [address] [place] [address] Pharmacist Pharmacy 05/31/21 Corrina Lennon APRN.AIR ROUTE TRAFFIC CONTROLLER [address] [place] [address] Brake Drum Molder Family Medicine 09/23/24 Carolina Landeros APRN.AIR ROUTE TRAFFIC CONTROLLER [address] [facility] [place] [address] Brake Drum Molder Family Medicine 09/23/24 Senior Systems Architect Relationship Specialty Start Date End Date Guanakito Reno MD [address] [facility] [place] [address] PCP - General Family Medicine 05/24/18 13, Pharmacist [address] [place] [address] Pharmacist Pharmacy 05/31/21 Corrina Lennon APRN.AIR ROUTE TRAFFIC CONTROLLER [address] [place] [address] Brake Drum Molder [facility] 09/23/24 Carolina Landeros APRN.AIR ROUTE TRAFFIC CONTROLLER [address] [facility] [place] [address] [facility] 09/23/24 Senior Systems Architect Relationship Specialty Start Date End Date Guanakito Reno MD [address] [facility] [place] [address] PCP - General Family Medicine 05/24/18 13, Pharmacist [address] [place] [address] Pharmacist Pharmacy 05/31/21 Corrina Lennon APRN.AIR ROUTE TRAFFIC CONTROLLER [address] [place] [address] Brake Drum Molder Family Medicine 09/23/24 Carolina Landeros APRN.AIR ROUTE TRAFFIC CONTROLLER [address] [facility] [place] [address] Brake Drum Molder Family Medicine 09/23/24 Senior Systems Architect Relationship Specialty Start Date End Date Guanakito Reno MD [address] [place] [address] PCP - General Family Medicine 05/24/18 13, Pharmacist [address] [place] [address] Pharmacist Pharmacy 05/31/21 Corrina Lennon APRN.AIR ROUTE TRAFFIC CONTROLLER [address] [place] [address] Brake Drum Molder [facility] 09/23/24 Carolina Landeros APRN.AIR ROUTE TRAFFIC CONTROLLER [address] [place] [address] [facility]ke [facility] 09/23/24 Senior Systems Architect Relationship Specialty Start Date End Date Guanakito Reno MD [address] [place] [address] PCP - General Family Medicine 05/24/18 13, Pharmacist [address] [place] [address] Pharmacist Pharmacy 05/31/21 Corrina Lennon BULK PL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 [address] [place] [address] Brake Drum Molder Family Medicine 09/23/24 Carolina Landeros APRN.AIR ROUTE TRAFFIC CONTROLLER [address] [facility] [place] [address] Brake Drum Molder Family Medicine 09/23/24 Senior Systems Architect Relationship Specialty Start Date End Date Guanakito Reno MD [address] [place] [address] PCP - General Family Medicine 05/24/18 13, Pharmacist [address] [place] [address] Pharmacist Pharmacy 05/31/21 Corrina Lennon APRN.AIR ROUTE TRAFFIC CONTROLLER [address] [place] [address] Brake Drum Molder Family Medicine 09/23/24 Carolina Landeros APRN.AIR ROUTE TRAFFIC CONTROLLER [address] [place] [address] Brake Drum Molder Family Medicine 09/23/24 Senior Systems Architect Relationship Specialty Start Date End Date Guanakito Reno MD [address] [place] [address] PCP - General Family Medicine 05/24/18 13, Pharmacist [address] [place] [address] Pharmacist Pharmacy 05/31/21 Corrina Lennon APRN.AIR ROUTE TRAFFIC CONTROLLER [address] [place] [address] Brake Drum Molder Family Medicine 09/23/24 Carolina Landeros APRN.AIR ROUTE TRAFFIC CONTROLLER [address] [place] [address] Brake Drum Molder Family Medicine 09/23/24 Senior Systems Architect Relationship Specialty Start Date End Date Guanakito Reno MD [address] [place] [address] PCP - General Family Medicine 05/24/18 13, Pharmacist [address] [place] [address] Pharmacist Pharmacy 05/31/21 Corrina Lennon APRN.AIR ROUTE TRAFFIC CONTROLLER [address] [place] [address] [facility] 09/23/24 Carolina Landeros BULK PL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 [address] [facility] [place] [address] [facility] 09/23/24 Team Status: Active Member Role/Relationship Status [...] Active Start: April 24, 2025 Dr. Josafat ORTZE MD Attending Provider Active Start: April 24, [...] 2025 End: May 02, 2025 Dr. Guanakito Rneo MD Referring Provider Active Start: May 02, [...] BE BASED ON THE PRIMARY CLINICAL RECORDS. [employer] provides no warranty or guarantee of the accuracy or completeness of information in this document.
[2025-07-08 08:52] LABS: Prothrombin Time (Protime)PT. 22.8 SECONDS (11.7-14.9)
== END ==
LOC: OLS.SW 05:00
PROVIDERS: PCP Family Medicine; Visit Provider Family Medicine
DX: I48.91 Unspecified atrial fibrillation (principal)
CPT/HCPCS: 36415; 85610

== ENCOUNTER → 2025-07-17 | Outpatient (REF) | payer MEDICARE, SELFPAY ==
[2025-07-17 08:08] LABS: INR Fingerstick 2.0
== END ==
LOC: OLS.SW 05:00
PROVIDERS: PCP Family Medicine; Visit Provider Family Medicine
DX: I48.91 Unspecified atrial fibrillation (principal)
CPT/HCPCS: 36416; 85610

== ENCOUNTER → 2025-07-31 05:00 | Outpatient (REF) | payer MEDICARE, SELFPAY ==
[2025-07-31 06:47] LABS: Prothrombin Time (Protime)PT. 22.7 SECONDS (11.7-14.9)
== END ==
LOC: OLS.SW 05:00
PROVIDERS: PCP Family Medicine; Visit Provider Family Medicine
DX: I48.91 Unspecified atrial fibrillation (principal)
CPT/HCPCS: 36415; 85610

== ENCOUNTER → 2025-08-14 05:00 | Outpatient (REF) | payer MEDICARE, SELFPAY ==
--- OUTSIDE RECORDS SUMMARY | 2025-08-14 05:20 | XMS RPT_ITS | CCD ---
Author Organization [facility] Care Team Providers Care Body Shop Supervisor Name Role Phone VIPIN CARDONA Unavailable Unavailable [...] Guanakito Reno MD Primary Care Provider Haagen DIRECTOR DIGITAL ADVERTISING.TELEGRAPHIC TYPEWRITER INSTALLER, Corrina Unavailable Suppan DIRECTOR DIGITAL ADVERTISING.TELEGRAPHIC TYPEWRITER INSTALLER, Carolina A Unavailable Suppan DIRECTOR DIGITAL ADVERTISING.TELEGRAPHIC TYPEWRITER INSTALLER, Carolina A Unavailable Dr. Guanakito Reno MD Primary Care Provider Dr. Guanakito Reno MD Referring Provider Josafat García MD Attending Provider [phone] Josafat García MD Referring Provider [phone] Dr. Bianka Gonzalez MD Attending Provider Unavaila Dr. Josafat Ibrahim MD Attending Provider Unavail able Dr. David Navarrete DO Attending Provider Dr. Burt Zamora MD Attending Provider [phone] Alfred JAMES, Dr. Maurice Referring Provider Unavail able CAROLINA LANDEROS Attending Unavailable SHADIA, GUANAKITO J Primary Care Unavailable SUPPAN [place]INA Referring Unavailable SHADIA, GUANAKITO J Primary Care Unavailable SUPPCAROLINA LUNA Attending Unavailable SHADIA, GUANAKITO J Primary Care Unavailable Alfred ORTEZ, Josafat Attending Unavailable Alfred ORTEZ, Josafat Referring Unavailable [place], Guanakito Primary Care Unavailable Burt Zamora Attending Unavailable [place], Guanakito Primary Care Unavailable Raquel, Josafat Attending Unavailable [place], Guanakito Referring Unavailable Shadia, Guanakito Primary Care Unavailable Shadia, Guanakito Primary Care Unavailable Alfred ORTEZ, Josafat Attending Unavailable Alfred ORTEZ, Josafat Attending Unavailable [place], Guanakito Primary Care Unavailable Alfred ORTEZ, Josafat Attending Unavailable Shadia, Guanakito Primary Care Unavailable Alfred ORTEZ, Josafat Attending Unavailable [place], Guanakito Primary Care Unavailable Alfred ORTEZ, Josafat Attending Unavailable Alfred ORTEZ, Josafat Referring Unavailable Shadia, Guanakito Primary Care Unavailable [place], Guanakito Referring Unavailable David Navarrete Attending Unavailable [place], Guanakito Primary Care Unavailable Alfred ORTEZ, Josafat Attending Unavailable Shadia, Guanakito Primary Care Unavailable Josafat Oliva Referring Unavailable [place], Guanakito Primary Care Unavailable Alfred ORTEZ, Josafat Attending Unavailable [place], Guanakito Primary Care Unavailable Bianka Olivera Attending Unavailable Alfred ORTEZ, Josafat Attending Unavailable [place], Guanakito Primary Care Unavailable Alfred ORTEZ, Josafat Attending Unavailable [place], Guanakito Primary Care Unavailable Alfred ORTEZ, Josafat Attending Unavailable Shadia, Guanakito Primary Care Unavailable [place], Guanakito Primary Care Unavailable Alfred ORTEZ, Josafat Attending Unavailable Raquel, Josafat Referring Unavailable Raquel, Josafat Attending Unavailable Shadia, Guanakito Primary Care Unavailable Bianka Olivera Attending Unavailable [place], Guanakito Primary Care Unavailable Alfred ORTEZ, Josafat Attending Unavailable [place], Guanakito Primary Care Unavailable Alfred ORTEZ, Josafat Attending Unavailable Shadia, Guanakito Primary Care Unavailable Josafat Oliva Attending Unavailable Shadia, Guanakito Primary Care Unavailable Josafat Oliva Attending Unavailable [place], Guanakito Primary Care Unavailable Ariana Khan Referring Unavailable Ariana Khan Attending Unavailable Shadia, Guanakito Primary Care Unavailable KEDAR HERNANDEZ Attending Unava ilable [facility], GUANAKITO J Primary Care Unavailable Allergies Allergy Classification Reported Allergen(s) Allergy Type Date of Onset Reaction(s) Facility (4 sources) Environmental Allergies: Uncoded; Translations: [Environmental Allergies: Uncoded] Allergy to substance 5 [facility] Medications Current Medications Medication Drug Class(es) [...] 4 mg/ml oral suspension (3 sources) Start: take 1 mL by mouth every four [...] (3 sources) Stimulant Laxative Star t: 04-15 8-20 25 Bisacodyl (Dulcolax (Bisacodyl)) 10 mg suppository [...] hydrochloride 10 mg oral tablet (20 sources) I-qjazrd-M-aspart ate Receptor Antagonist Start: 08-21-2019 End: 01-21-2025 [...] Comment on above: Take 1 tablet by mray th once daily. nitroglycerin 0.4 mg sublingual [...] 3 08-14-2023 Chronic Deficiency and other anemia (5 sources) [...] Chronic Diabetes mellitus without complication (1 source) Type 2 diabetes mellitus without complications; Translations: [Type 2 diabetes mellitus without complications] Onset: 5 Chronic Diabetes mellitus without complication (1 source) Diabetes mellitus without complication; Translations: [Type 2 diabetes mellitus with stage 3 chronic kidney disease, without long-term current use of insulin, unspecified whether stage 3a or 3b CKD (HCC)] Onset: 0 Disorders of lipid metabolism (20 sources) Mixed hyperlipidemia; Translations: [Mixed hyperlipidemia] Onset: 5 08-10-2015 Chronic Essential hypertension (20 sources) Essential hypertension; Translations: [Essential (primary) hypertension] Onset: 5 Chronic Heart valve disorders (20 sources) Nonrheumatic aortic (valve) stenosis; Translations: [Aortic stenosis, non-rheumatic ] Onset: 8 Chronic Comment on above: Moderate per echo done @ [facility], due to calcification Hyperplasia of prostate (20 [...] 4 11-11-2016 Chronic Other aftercare (3 sources) intermediate (current) use of anticoagulants; Translations: [intermediate (current) use of anticoagulants] Onset: 0 Episodic Other aftercare (2 sources) Other longterm (current) drug therapy; Translations: [Other online content coordinator (current) drug therapy] Onset: 5 Episodic Other [...] Translations: [Other seasonal allergic rhinitis] 01-21-2025 Chronic Peripheral and visceral atherosclerosis (20 sources) Peripheral vascular disease, unspecified; Translations: [Peripheral vascular disease, unspecified] Onset: 8 Chronic Superficial injury; contusion (1 source) Abrasion of upper limb; Translations: [Abrasion of left upper arm, initial encounter] 12-22-2023 Episodic Syncope (2 sources) Syncope; Translations: [Syncope and collapse] Episodic Unclassified (1 source) Unknown / UNK(Unknown) Onset: 8 Unclassified (3 sources) Closed fracture of right [...] glucose] Onset: 10-12-2005 Resolved: 10-02-2006 10-02-2006 Episodic E Codes: Fall (1 source) Unspecified fall, initial encounter; Translations: [Fall, initial encounter] Onset: 03-05-2025 Episodic Fracture of upper limb (12 sources) Closed fracture of upper end of humerus; Translations: [Unspecified fracture of upper end of right humerus, initial encounter for closed fracture] Onset: 03-05-2025 03-07-2025 Episodic Neoplasms of unspecified nature or uncertain behavior (20 sources) Neoplasm of uncertain behavior of skin; Translations: [Neoplasm of uncertain behavior of skin] Onset: 03-14-2019 Resolved: 08-14-2023 03-14-2019 Episodic Other aftercare (20 sources) Long-term current use of anticoagulant; Translations: [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] Onset: 02-04-2020 02-04-2020 [...] unspecified ear] Resolved: 10-12-2005 10-12-2005 Episodic Other non-traumatic joint disorders (20 sources) [...] Test Name Value Interpretation Reference Range Facility [facility] 08-11-2025 [facility] Telephone (IVYHireArt) -------- CAL MITCHELL ([id number]) 1945 M Date Time Provider Department 08/11/25 LAURA IRAHETA During your visit today, we recorded the following information about you: Jimmy Kwon 08/11/2025 10:52 AM Signed Annual f/u - Bilateral carotid artery stenosis, hx of carotid endarterectomy - US PRIOR Spoke w/daughter first - stated he was now a resident of [facility]. Updated pt's demographics with new info/ph numbers. Transferred to and left detailed VM with [employer] coordinator, Yanci (schedule's resident's appts) to schedule pt's US w/CS then OV with us. Allergies As of Date: 08/11/2025 (No Known Allergies) Date Reviewed: 03/05/2025 Reviewed by: Jack Holcomb RN - Fully Assessed Reason for Visit: Appointment [[id number]] Cmt: appt Prescriptions as of 08/11/2025 - warfarin (COUMADIN) 5 mg tablet Take [...] Insulin: No - Lancets (ONE TOUCH DELICA) [facility] lancets Test blood sugar(s) one time daily. Dx: 250.00. Insulin: No Problem List As Of Date 08/11/2025 Noted Resolved Hyperlipidemia, mixed [E78.2] Essential hypertension [...] stenosis of unspecified carotid a*10/25/2013 03/26/2024 Frequency [[id number]] 02/11/2016 03/26/2024 BPH (benign prostatic hypertrophy) with [...] Hypertensive kidney disease with stage 3 chroni*01/29/2020 intermediate (current) use of anticoagulants [Z79.*02/04/2020 Dementia, vascular, [...] artery stenosis [I65.23] 08/06/2024 Encounter Status:Closed by JIMMY KWON on 08/11/25 [facility] CNPNon 08-01-2025 [facility] (FAMPWS) -------- CAL MITCHELL ([id number]) 1945 M Date Time Provider Department 08/01/25 [place]O [place] [facility] [place] your visit today, we recorded the following information about you: Olivia Heredia, BENJIE 08/01/2025 10:33 AM Signed Patient's son Gustavo calling in asking for advise from Dr. Reno, for patient. Gustavo states patient is now receiving longterm care at [facility] and his care is being managed by a provider there. There could be a chance that pt would discharge there per choice, and come back to their home within in the next few years and then pt would need Dr. Reno's care again. Son is asking if pt needs to be fully discharged from Dr. Reno's care now, and if so, then would Dr. Reno begin care again on patient in the next 3 years, if needed? Please advise son, Gustavo. [phone] Guanakito Reno MD 08/01/2025 11:00 AM Signed He should have me removed as pcp but if he is every discharged, I would be willing to assume care again. Josselyn Barrow LPN 08/01/2025 12:27 PM Signed Spoke to Gustavo and he verbalizes understanding. He is not sure of the name of the physician at the facility. Allergies As of Date: 08/01/2025 (No Known Allergies) Date Reviewed: 03/05/2025 Reviewed by: Jack Holcomb RN - Fully Assessed Reason for Visit: Patient Question [7992] Prescriptions as of 08/01/2025 - warfarin (COUMADIN) 5 mg tablet Take [...] 5 min x3 - blood sugar diagnostic (Local MarketersTOUCH ULTRA TEST) test strip Test blood sugar(s) one times daily. Dx: 250.00. Insulin: No - Lancets (ONE TOUCH DELICA) Misc lancets Test blood sugar(s) one time daily. Dx: 250.00. Insulin: No Problem List As Of Date 08/01/2025 Noted Resolved Hyperlipidemia, mixed [E78.2] Essential hypertension [...] stenosis of unspecified carotid a*10/25/2013 03/26/2024 Frequency [[id number]] 02/11/2016 03/26/2024 BPH (benign prostatic hypertrophy) with [...] Hypertensive kidney disease with stage 3 chroni*01/29/2020 intermediate (current) use of anticoagulants [Z79.*02/04/2020 Dementia, vascular, mixed, with behavioral dist*08/26/2020 08/14/2023 Obesity, Class II, BMI 35-39.9 [E66.812] 08/15/2022 Aortic valve disorder [I35.9] 08/15/2022 Abnormal electrocardiography [R94.31] 08/14/2023 Diagnosed: 08/14/2023 First de (more content not included)... Normal [facility] Prothrombin Time w/INRon INR Coag (PPP) [Relative time] 2.0 {INR} Normal [facility] Comment on above: Order Comment: FINGE RSTICK CONFIRMATION Performed By: #### L 300.3900 #### [facility] [address] [place], [address] PT Coag (PPP) [Time] 22.7 s High 11.7-14.9 [facility] Comment on above: Order Comment: FINGE RSTICK CONFIRMATION Performed By: #### L 300.3900 #### [facility] [address] [place], [address] Protime w/INR Fingerstickon 07-17-2025 INR Coag (PPP) [Relative time] 2.0 {INR} Normal [facility] Comment on above: Result Comment: Crit ical Value > 4.0 Performed By: #### L 300.3900 #### [facility] [address] [place], [address] Protime Coagsen 22.3 SEC High 11.7-14.9 [facility] Comment on above: Performed By: #### L 300.3900 #### [facility] [address] [place], [address] Prothrombin Time w/INRon INR Coag (PPP) [Relative time] 2.0 {INR} Normal [facility] Comment on above: Order Comment: 317.1 Performed By: #### L 300.3900 #### [facility] [address] [place], [address] PT Coag (PPP) [Time] 22.8 s High 11.7-14.9 [facility] Comment on above: Order Comment: 317.1 Performed By: #### L 300.3900 #### [facility] [address] [place], [address] Prothrombin Time w/INRon INR Coag (PPP) [Relative time] 2.1 {INR} Normal [facility] Comment on above: Performed By: #### L 300.3900 #### [facility] [address] [place], [address] PT Coag (PPP) [Time] 24.2 s High 11.7-14.9 [facility] Comment on above: Performed By: #### L 300.3900 #### [facility] [address] [place], [address] Protime w/INR Fingerstickon 06-17-2025 INR Coag (PPP) [Relative time] 2.1 {INR} Normal [facility] Comment on above: Result Comment: Crit ical Value > 4.0 Performed By: #### L 300.3900 #### [facility] [address] [place], [address] Protime [place]agsen 22.8 SEC High 11.7-14.9 [facility] Comment on above: Performed By: #### L 300.3900 #### [facility] [address] [place], [address] Prothrombin Time w/INRon INR Coag (PPP) [Relative time] 1.9 {INR} Normal [facility] Comment on above: Order Comment: 317.1 Performed By: #### L 300.3900 #### [facility] [address] [place], [address] PT Coag (PPP) [Time] 22.4 s High 11.7-14.9 [facility] Comment on above: Order Comment: 317.1 Performed By: #### L 300.3900 #### [facility] [address] [place], [address] Prothrombin Time w/INRon INR Normal [facility] Comment on above: Result Comment: ANTONINO JONES SEE [id number]:[id number] Performed By: #### L 300.3900 #### [facility] [address] [place], [address] PROTIME Normal 11.7-14.9 [facility] Comment on above: Result Comment: ANTONINO JONES SEE [id number]:[id number] Performed By: #### L 300.3900 #### [facility] [address] [place], [address] International normalized rat io (INR) calculationOrdered By: Josafat Simon on 06-03-2025 INR Coag (Bld) [Relative time] 3.0 {INR} [facility] Prothrombin Time w/INRon INR Coag (PPP) [Relative time] 3.0 {INR} Normal [facility] Comment on above: Order Comment: 317.1 Performed By: #### L 300.3900 #### [facility] [address] [place], [address] PT Coag (PPP) [Time] 31.4 s High 11.7-14.9 [facility] Comment on above: Order Comment: 317.1 Performed By: #### L 300.3900 #### [facility] [address] [place], [address] Prothrombin timeOrdered By: Josafat Simon on 06-03-2025 PT Coag (PPP) [Time] 31.4 s High 11.7-14.9 [facility] International normalized rat io (INR) measurement by fingerstickOrdered By: Josafat Simon on 05-27-2025 INR Coag (BldC) [Relative time] 2.3 [facility] Comment on above: Critical Value > 4.0 Protime w/INR Fingerstickon 05-27-2025 INR Coag (PPP) [Relative time] 2.3 {INR} Normal [facility] Comment on above: Result Comment: Crit ical Value > 4.0 Performed By: #### L 300.3900 #### [facility] [address] [place], [address] Protime Coagsen 24.6 SEC High 11.7-14.9 [facility] Comment on above: Performed By: #### L 300.3900 #### [facility] [address] [place], [address] Whole blood prothrombin time Ordered By: Josafat Simon on 05-27-2025 PT Coag (Bld) [Time] 24.6 s High 11.7-14.9 [facility] International normalized rat io (INR) measurement by fingerstickOrdered By: Josafat Simon on 05-20-2025 INR Coag (BldC) [Relative time] 2.7 [facility] Comment on above: Critical Value > 4.0 Protime w/INR Fingerstickon 05-20-2025 INR Coag (PPP) [Relative time] 2.7 {INR} Normal [facility] Comment on above: Result Comment: Crit ical Value > 4.0 Performed By: #### L 300.3900 #### [facility] [address] [place], [address] Protime Coagsen 28.2 SEC High 11.7-14.9 [facility] Comment on above: Performed By: #### L 300.3900 #### [facility] [address] [place], [address] Whole blood prothrombin time Ordered By: Josafat Smion on 05-20-2025 PT Coag (Bld) [Time] 28.2 s High 11.7-14.9 [facility] International normalized rat io (INR) calculationOrdered By: Josafat Simon on 05-15-2025 INR Coag (Bld) [Relative time] 2.3 {INR} [facility] Prothrombin Time w/INRon INR Coag (PPP) [Relative time] 2.3 {INR} Normal [facility] Comment on above: Order Comment: 317.1 Performed By: #### L 300.3900 #### [facility] [place], [address] Prothrombin timeOrdered By: Josafat Simon on 05-15-2025 PT Coag (PPP) [Time] 25.3 s High 11.7-14.9 [facility] Comment on above: Order Comment: 317.1 Performed By: #### L 300.3900 #### [facility] [address] [place], [address] ([address] International normalized rat io (INR) calculationOrdered By: Josafat Simon on 05-13-2025 INR Coag (Bld) [Relative time] 1.7 {INR} [facility] Prothrombin Time w/INRon INR Coag (PPP) [Relative time] 1.7 {INR} Normal [facility] Comment on above: Order Comment: 317.1 Performed By: #### L 300.3900 #### [facility] [address] [place], [address] (471 PT Coag (PPP) [Time] 20.6 s High 11.7-14.9 [facility] Comment on above: Order Comment: 317.1 Performed By: #### L 300.3900 #### [facility] [address] [place], [place], [address] (077) Prothrombin timeOrdered By: Josafat Simon on 05-13-2025 PT Coag (PPP) [Time] 20.6 s High 11.7-14.9 [facility] International normalized rat io (INR) calculationOrdered By: Josafat Simon on 05-08-2025 INR Coag (Bld) [Relative time] 3.2 {INR} [facility] Prothrombin Time w/INRon INR Coag (PPP) [Relative time] 3.2 {INR} Normal [facility] Comment on above: Order Comment: 317.1 Performed By: #### L 300.3900 #### [facility] [address] [place], [address] PT Coag (PPP) [Time] 33.1 s High 11.7-14.9 [facility] Comment on above: Order Comment: 317.1 Performed By: #### L 300.3900 #### [facility] [address] [place], [address] Prothrombin timeOrdered By: Josafat Simon on 05-08-2025 PT Coag (PPP) [Time] 33.1 s High 11.7-14.9 [facility] International normalized rat io (INR) calculationOrdered By: Josafat Simon on 05-06-2025 INR Coag (Bld) [Relative time] 4.1 {INR} High [facility] Comment on above: CRITICAL VALUE ZABALA D TO IRMA SOLOMON (OLS.SW)05/06/25 0801 Travis OrtizRESULTS READ BACK BY SAME. Prothrombin Time w/INRon INR Coag (PPP) [Relative time] 4.1 {INR} Invalid Interpretation Code [facility] Comment on above: Order Comment: FINGE RSTICK CONFIRMATION Result Comment: CRIT ICAL VALUE CALLED TO IRMA SOLOMON (OLS.SW) 05/06/25 0801 Travis R Stoner. RESULTS READ BACK BY SAME. Performed By: #### L 300.3900 #### [facility] [address] [place], [address] PT Coag (PPP) [Time] 40.8 s High 11.7-14.9 [facility] Comment on above: Order Comment: FINGE RSTICK CONFIRMATION Performed By: #### L 300.3900 #### [facility] [address] [place], [address] Prothrombin timeOrdered By: Josafat Simon on 05-06-2025 PT Coag (PPP) [Time] 40.8 s High 11.7-14.9 [facility] Protime w/INR Fingerstickon 05-06-2025 INR Coag (PPP) [Relative time] 4.3 {INR} Invalid Interpretation Code [facility] Comment on above: Result Comment: Crit ical Value > 4.0 Performed By: #### L 300.3900 #### [facility] [address] [place], [address] Protime Coagsen 42.3 SEC High 11.7-14.9 [facility] Comment on above: Performed By: #### L 300.3900 #### [facility] [address] [place], [address] Whole blood prothrombin time Ordered By: Josafat Simon on 05-06-2025 PT Coag (Bld) [Time] 42.3 s High 11.7-14.9 [facility] Orthopedic Visit Reporton Orthopedic Visit Report [facility] [address] [place], [place] [id number] OFFICE VISIT Date of Service: 05/02/25 MR#: [id number] Acct: [id number] Name: CAL MITCHELL Rep #: [id number] : 1945 Provider: Dr. David granados DO Age/Sex: 79/M Location[place] [facility] Status: Signed Intake Vital Signs 03/07/25 12:57 [...] History acetaminophen 650 mg rectal 650 mg MD Q4H PRN 05/02/25 5 History suppository aluminum-mag hydroxide-simethicone 30 ml PO Q4H PRN 05/02/25 History 200 mg-200 mg-20 mg/5 mL oral susp (Antacid) bisacodyl 10 mg rectal suppository 10 mg MD QDAY PRN 05/02/2505/02 History (Dulcolax (bisacodyl)) dextrose [...] hr sodium phosphates 19 gram-7 118 ml MD ONCE PRN 05/02/25 History gram/118 mL enema [...] is here today with his son and osibxwfn-az-sgr. Usually ambulates with a walker or a cane. Had a fall. Was mainly complaining about pain to the upper extremity was seen in a peripheral hospital referred here given a sling they found approximately wrist fracture on the right side. The patient does not speak very much but he converses overall well he is rwwqm-pqum-htjhiijz fairly stoic. Plan:79-year-old man with a (more content not included)... Normal [facility] Shoulder min 2 Viewson 05-02 Shoulder min 2 Views [facility] [address] [place], [place] [address] Shoulder min 2 Views MR#: [id number] Acct: [id number] Name: CAL MITCHELL Rep #: [id number] : 1945 M 79 From: Magdalena Lala PCP: Dr. Guanakito Reno MD Status: DEP AMB Study: Shoulder min 2 Views Date of Exam: 05/02/25 Exam# [id number] Ordering Dr: David Navarrete DO PROCEDURE: SHOULDER [...] changes involving the glenohumeral joint. Reading Location: [id number] CC: Dr. David Navarrete DO; Dr. 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, [address] (756) PT Coag (PPP) [Time] 33.6 s High 11.7-14.9 [facility] Comment on above: Performed By: #### L 300.3900 #### [facility] [address] [place], [place], [phone] ([phone] Prothrombin timeOrdered By: Josafat Simon on 05-01-2025 PT Coag (PPP) [Time] 33.6 s High 11.7-14.9 [facility] International normalized rat io (INR) calculationOrdered By: Josafat Simon on 04-29-2025 INR Coag (Bld) [Relative time] 3.1 {INR} [facility] Prothrombin Time w/INRon INR Coag (PPP) [Relative time] 3.1 {INR} Normal [facility] Comment on above: Performed By: #### L 300.3900 #### [facility] [address] [place], [place], [phone] ([phone] Prothrombin timeOrdered By: Josafat Simon on 04-29-2025 PT Coag (PPP) [Time] 32.2 s High 11.7-14.9 [facility] Comment on above: Performed By: #### L 300.3900 #### [facility] [address] [place], [address] International normalized rat io (INR) measurement by fingerstickOrdered By: Josafat Simon on 04-24-2025 INR Coag (BldC) [Relative time] 3.5 [facility] Comment on above: Critical Value > 4.0 Protime w/INR Fingerstickon 04-24-2025 INR Coag (PPP) [Relative time] 3.5 {INR} Normal [facility] Comment on above: Result Comment: Crit ical Value > 4.0 Performed By: #### L 300.3900 #### [facility] [address] [place], [address] Protime Coagsen 35.4 SEC High 11.7-14.9 [facility] Comment on above: Performed By: #### L 300.3900 #### [facility] [address] [place], [address] Whole blood prothrombin time Ordered By: Josafat Simon on 04-24-2025 PT Coag (Bld) [Time] 35.4 s High 11.7-14.9 [facility] Anion gap in Serum or Plasma Ordered By: Bianka Gonzalez on 04-17-2025 Anion gap [Moles/Vol] 10 mmol/L 5-15 [facility] BUN/creatinine ratioOrdered By: Bianka Gonzalez on 04-17-2025 Urea nitrogen/Creatinine [Mass ratio] 21.1 mg/mg High 10- [facility] Basic Metabolic Profile (BMP )on 04-17-2025 BUN/CRE 21.1 RATIO High 08-04 [facility] Comment on above: Order Comment: 213 Performed By: #### L 300.3900, L100.0500, L500.2500 #### [facility] [address] [place], [address] Calcium [Mass/Vol] 8.2 mg/dL Normal 7.6-11.0 [facility] Comment on above: Order Comment: 213 Performed By: #### L 300.3900, L100.0500, L500.2500 #### [facility] [address] [place], [address] Chloride [Moles/Vol] 111 mmol/L High 98-108 [facility] Comment on above: Order Comment: 213 Performed By: #### L 300.3900, L100.0500, L500.2500 #### [facility] [address] [place], [address] CO2 [Moles/Vol] 17.2 mmol/L Low 21.0-32.0 [facility] Comment on above: Order Comment: 213 Performed By: #### L 300.3900, L100.0500, L500.2500 #### [facility] [address] [place], [address] Creatinine [Mass/Vol] 2.45 mg/dL High 0.70-1.20 [facility] Comment on above: Order Comment: 213 Performed By: #### L 300.3900, L100.0500, L500.2500 #### [facility] [address] [place], [address] GAP 10 Normal 5-15 [facility] Comment on above: Order Comment: 213 Performed By: #### L 300.3900, L100.0500, L500.2500 #### [facility] [address] [place], [address] GFR/1.73 sq M.predicted among non-blacks MDRD (S/P/Bld) [Vol rate/Area] 26 mL/min/{1.73_m2} Low >60 [facility] Comment on above: Order Comment: 213 Result Comment: mL/m in/1.73m2 CKD-EPI Creatinine Equation (2020) Performed By: #### L 300.3900, L100.0500, L500.2500 #### [facility] [address] [place], [address] Glucose [Mass/Vol] 137 mg/dL High 70-99 [facility] Comment on above: Order Comment: 213 Performed By: #### L 300.3900, L100.0500, L500.2500 #### [facility] [address] [place], [address] Potassium [Moles/Vol] 4.9 mmol/L Normal 3.3-5.1 [facility] Comment on above: Order Comment: 213 Performed By: #### L 300.3900, L100.0500, L500.2500 #### [facility] [address] [place], [address] Sodium [Moles/Vol] 139 mmol/L Normal 133-145 [facility] Comment on above: Order Comment: 213 Performed By: #### L 300.3900, L100.0500, L500.2500 #### [facility] [address] [place], [address] Urea nitrogen [Mass/Vol] 52 mg/dL High 4-19 [facility] Comment on above: Order Comment: 213 Performed By: #### L 300.3900, L100.0500, L500.2500 #### [facility] [address] [place], [address] CBC-Complete Blood Cnt No Di ffon 04-17-2025 Erythrocyte distribution width (RBC) [Ratio] 16.4 % High 11.6-14.6 [facility] Comment on above: Order Comment: 213 Performed By: #### L 300.3900, L100.0500, L500.2500 #### [facility] [address] [place], [address] Hematocrit (Bld) [Volume fraction] 35.2 % Low 40-54 [facility] Comment on above: Order Comment: 213 Performed By: #### L 300.3900, L100.0500, L500.2500 #### [facility] [address] [place], [address] Hemoglobin (Bld) [Mass/Vol] 10.6 g/dL Low 13.0-16.5 [facility] Comment on above: Order Comment: 213 Performed By: #### L 300.3900, L100.0500, L500.2500 #### [facility] [address] [place], [address] MCH (RBC) [Entitic mass] 29.2 pg Normal 27.0-32.0 [facility] Comment on above: Order Comment: 213 Performed By: #### L 300.3900, L100.0500, L500.2500 #### [facility] [address] [place], [address] MCHC (RBC) [Mass/Vol] 30.1 g/dL Low 32-36 [facility] Comment on above: Order Comment: 213 Performed By: #### L 300.3900, L100.0500, L500.2500 #### [facility] [address] [place], [address] MCV (RBC) [Entitic vol] 97.0 fL High 80-94 [facility] Comment on above: Order Comment: 213 Performed By: #### L 300.3900, L100.0500, L500.2500 #### [facility] [address] [place], [address] Platelet mean volume (Bld) [Entitic vol] 10.0 fL Normal 6.2-12.0 [facility] Comment on above: Order Comment: 213 Performed By: #### L 300.3900, L100.0500, L500.2500 #### [facility] [address] [place], [address] Platelets (Bld) [#/Vol] 161 10*3/uL Normal 150-450 [facility] Comment on above: Order Comment: 213 Performed By: #### L 300.3900, L100.0500, L500.2500 #### [facility] [address] [place], [address] RBC (Bld) [#/Vol] 3.63 10*6/uL Low 4.6-6.2 [facility] Comment on above: Order Comment: 213 Performed By: #### L 300.3900, L100.0500, L500.2500 #### [facility] [address] [place], [address] RDW SD 58.6 fl High 35.1-43.9 [facility] Comment on above: Order Comment: 213 Performed By: #### L 300.3900, L100.0500, L500.2500 #### [facility] [address] [place], [address] WBC (Bld) [#/Vol] 7.2 10*3/uL Normal 4.4-11.0 [facility] Comment on above: Order Comment: 213 Performed By: #### L 300.3900, L100.0500, L500.2500 #### [facility] [address] [place], [address] Carbon dioxide, total [Moles /volume] in Central venous bloodOrdered By: Bianka Gonzalez on 04-17-2025 CO2 [Moles/Vol] 17.2 mmol/L Low 21.0-32.0 [facility] Chloride assayOrdered By: Josr Gonzalez on 04-17-2025 Chloride [Moles/Vol] 111 mmol/L High 98-108 [facility] Erythrocyte distribution wid th ratioOrdered By: Bianka Gonzalez on 04-17-2025 Erythrocyte distribution width (RBC) [Ratio] 16.4 % High 11.6-14.6 [facility] Erythrocyte distribution wid th standard deviationOrdered By: Bianka Gonzalez on 04-17-2025 Erythrocyte distribution width (RBC) [Ratio] 58.6 fl High 35.1-43.9 [facility] Glomerular filtration rate ( GFR) estimation/1.73 sq m using serum, plasma, or whole bOrdered By: Bianka Gonzalez on 04-17-2025 GFR/1.73 sq M.predicted among non-blacks MDRD (S/P/Bld) [Vol rate/Area] 26 mL/min/{1.73_m2} Low >60 [facility] Comment on above: mL/min/1.73m2 CKD-EP I Creatinine Equation (2020) Hematocrit Auto (Bld) [Volum e fraction]Ordered By: Bianka Gonzalez on 04-17-2025 Hematocrit (Bld) [Volume fraction] 35.2 % Low 40-54 [facility] Hemoglobin measurementOrdere d By: Bianka Gonzalez on 04-17-2025 Hemoglobin (Bld) [Mass/Vol] 10.6 g/dL Low 13.0-16.5 [facility] International normalized rat io (INR) calculationOrdered By: Bianka Gonzalez on 04-17-2025 INR Coag (Bld) [Relative time] 2.7 {INR} [facility] MCV (mean corpuscular volume ) determinationOrdered By: Bianka Gonzalez on 04-17-2025 MCV (RBC) [Entitic vol] 97.0 fL High 80-94 [facility] Mean corpuscular hemoglobin (MCH) determinationOrdered By: Bianka Gonzalez on 04-17-2025 MCH (RBC) [Entitic mass] 29.2 pg 27.0-32.0 [facility] Mean corpuscular hemoglobin concentration (MCHC) determinationOrdered By: Bianka Gonzalez on 04-17-2025 MCHC (RBC) [Mass/Vol] 30.1 g/dL Low 32-36 [facility] Mean platelet volume determi nationOrdered By: Bianka Gonzalez on 04-17-2025 Platelet mean volume (Bld) [Entitic vol] 10.0 fL 6.2-12.0 [facility] Platelet countOrdered By: Josr Gonzalez on 04-17-2025 Platelets (Bld) [#/Vol] 161 10*3/uL 150-450 [facility] Potassium measurement (mass/ volume)Ordered By: Bianka Gonzalez on 04-17-2025 Potassium (Unsp spec) [Mass/Vol] 4.9 mmol/L 3.3-5.1 [facility] Prothrombin Time w/INRon INR Coag (PPP) [Relative time] 2.7 {INR} Normal [facility] Comment on above: Order Comment: 213 Performed By: #### L 300.3900, L100.0500, L500.2500 #### [facility] [address] [place], [address] PT Coag (PPP) [Time] 29.7 s High 11.7-14.9 [facility] Comment on above: Order Comment: 213 Performed By: #### L 300.3900, L100.0500, L500.2500 #### [facility] [address] [place], [place], [address] Prothrombin timeOrdered By: Bianka Gonzalez on 04-17-2025 PT Coag (PPP) [Time] 29.7 s High 11.7-14.9 [facility] RBC Auto (Bld) [#/Vol]Ordere d By: Bianka Gonzalez on 04-17-2025 RBC (Bld) [#/Vol] 3.63 10*6/uL Low 4.6-6.2 [facility] Serum creatinine measurement (mass/volume)Ordered By: Bianka Gonzalez on 04-17-2025 Creatinine [Mass/Vol] 2.45 mg/dL High 0.70-1.20 [facility] Serum glucose measurement (m ass/volume)Ordered By: Bianka Gonzalez on 04-17-2025 Glucose [Mass/Vol] 137 mg/dL High 70-99 [facility] Serum or plasma calcium cornelius urement (mass/volume)Ordered By: Bianka Gonzalez on 04-17-2025 Calcium [Mass/Vol] 8.2 mg/dL 7.6-11.0 [facility] Serum or plasma urea nitroge n measurement (mass/volume)Ordered By: Bianka Gonzalez on 04-17-2025 Urea nitrogen [Mass/Vol] 52 mg/dL High 4-19 [facility] Sodium levelOrdered By: Nestor Gonzalez on 04-17-2025 Sodium [Moles/Vol] 139 mmol/L 133-145 [facility] White blood cell (WBC) count Ordered By: Bianka Gonzalez on 04-17-2025 WBC (Bld) [#/Vol] 7.2 10*3/uL 4.4-11.0 [facility] CNPNon 04-15-2025 CNPN Telephone (MIGUELMTE) -------- CAL MITCHELL ([id number]) 1945 M Date Time Provider Department 04/15/25 T[place]LE During your visit today, we recorded the following information about you: Twin Cole RP 04/15/2025 9:12 AM Signed [facility] Anticoagulation Clinic Anticoagulation Episode Summary Anticoagulation Care Providers Provider Role Specialty Phone number Guanakito Reno MD [facility] Family Medicine [phone] Cal Hageroll is a 79 year old [...] Pharmacy Anticoagulation Clinic Pharmacy [facility] Clinic Pager: [phone]. Twin Cole RPh 04/29/2025 8:54 AM Signed [...] on an injectable anticoagulant - No Twin VinicionicoleStuart Twin Stuart 05/06/2025 10:59 AM Signed Spoke to patient's daughter. Patient has moved to [facility]. His INRs are monitored there. Will discharge patient from [facility] Daniel (Lumenz)Ashley 05/06/2025 2:31 PM Signed Pharmacy Anticoagulation Clinic Discharge completed at this time. Patient may be re-referred, if deemed appropriate. Ashley Hameed CPhT (Lumenz) Pharmacy [facility]ticoagulation Clinic Allergies As of Date: [...] (more content not included)... Normal [facility] Molly 04-14-2025 [facility] Telephone (FAMWS) -------- PAULACAL Chanell ([id number]) 1945 M Date Time Provider Department 04/14/25 [place] [facility] your visit today, we recorded the [...] Fully Assessed Reason for Visit: Patient Question [2367] Prescriptions as of 04/14/2025 - warfarin (COUMADIN) [...] Insulin: No - Lancets (ONE TOUCH DELICA) [facility] lancets Test blood sugar(s) one time daily. 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 Normal [facility] CNPNon 03-28-2025 [facility] Telephone (FAMWS) -------- CAL MITCHELL ([id number]) 1945 M Date Time Provider Department 03/28/25 [place]O [place] [facility] During your visit today, we recorded the following information about you: Niels Rodriges, BENJIE 03/28/2025 1:06 PM Signed Faxed recent ov notes to [facility] per daughter, January request. . January reports she talked to [facility] about patient going to live there and [facility] instructed her to have pcp office send an H AND P to them for review. Allergies As of Date: 03/28/2025 (No Known Allergies) Date Reviewed: 03/05/2025 Reviewed by: Jack Holcomb, BENJIE - Fully Assessed Reason for Visit: Faxed to [facility] [Other] Prescriptions as of 03/28/2025 - atorvastatin [...] stenosis of unspecified carotid a*10/25/2013 03/26/2024 Frequency [[id number]] 02/11/2016 03/26/2024 BPH (benign prostatic hypertrophy) with [...] Hypertensive kidney disease with stage 3 chroni*01/29/2020 intermediate (current) use of anticoagulants [Z79.*02/04/2020 Dementia, vascular, [...] Encounter Status:Closed by Niels RODRIGES on 03/28/25 [facility] Molly 03-24-2025 LUCIO Telephone ([facility]) -------- CAL MITCHELL ([id number]) 1945 M Date Time Provider Department 03/24/25 ALEJANDRO MOLINA During your visit today, we recorded the following information about you: Alejandro Molina RPh 03/24/2025 10:57 AM Signed [facility] Anticoagulation Clinic Anticoagulation Episode Summary Anticoagulation Care Providers Provider Role Specialty Phone number Guanakito Reno MD [facility] [phone] Cal Mitchell is a 79 year old [...] instructed to call [facility] at [phone] with any questions or concerns. Alejandro Molina RPh Clinical Pharmacist, Pharmacy Anticoagulation Clinic Pharmacy Anticoagulation Clinic Pager: [phone] Alejandro Molina RPh 04/07/2025 3:31 PM Signed [...] (more content not included)... Normal [facility] Inital Evaluation (1) - PTon 03-24-2025 Inital Evaluation (1) - PT [facility] Physical [facility] [address] [place] [address] [address] [place] [address] / REHABILITATION SERVICES INITIAL EVALUATION MR#: [id number] Acct: [id number] Name: CAL MITCHELL Rep #: [id number] : 1945 79 From: Rosa Gates DPT Referring Dr.: Dr. Josafat García MD Status: R EG RCR Insurance: [facility] [id number] SELF PAY INSURANCE Patient's Visit Information Visit Information Visit Information: CAL MITCHELL is a 79 year old M referred to Physical Therapy by Dr. Josafat García MD with a diagnosis of Fx of Upper End of Right Humerus. Date of Evaluation: 06/09/25 Physical Therapist: Rosa Gates DPT Visit Plan [...] reports pain in the anterior shoulder. Worst: 10 Agg: movement. Eases: not using it. He [...] PROM due to guarding. Strength: Scap: poor, manager training and development: fair, no other motions tested due to [...] to be FAXED BACK to us at [phone] for Medicare purposes. For Medicare only, by signing this I certify the plan of care. Please let me know if there are questions or concerns regarding this plan of care. Physician Signature: Date: ____ 03/24/25 1256 CC: Dr. Josafat García MD; Dr. Guanakito Reno MD E (more content not included)... Normal [facility] Orthopedic Visit Reporton Orthopedic Visit Report [facility] [address] [place] [id number] OFFICE VISIT Date of Service: 03/07/25 MR#: [id number] Acct: [id number] Name: CAL MITCHELL Rep #: [id number] : 1945 Provider: Dr. Josafat murcia MD Age/Sex: 79/M Location[place] [facility] [place] Status: Signed Intake Vital Signs 03/06/25 16:19 [...] you fallen in the past year?: Yes [facility] Medical History (Updated 03/07/25 @ 13:23 by [...] by me, Dr. Josafat García MD 03/07/25 7527. Part of today???s visit was documented by [ ], acting as scribe. CAL MITCHELL is a 79 year old M here today for R proximal humerus fracture. Patient fell 2 days ago. He lives at home. He is here today with his son and [id number]. Usually ambulates with a walker or a cane. Had a fall. Was mainly complaining about pain to the upper extremity was seen in a peripheral hospital referred here given a sling they found approximately wrist fracture on the right side. The patient does not speak very much but he converses overall well he is [id number] fairly stoic. Supplemental Info Proximal humerus fracture [...] a r (more content not included)... 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 - Currently taking [place] for pain management. - Denies pain elsewhere [...] (more content not included)... Normal [facility] ED NOTEon 03-06-2025 ED NOTE HNO ID: [id number] Author: JACK HOLCOMB RN Service: ? Author Type: Registered Nurse Type: ED Notes Filed: 03/06/2025 00:19 Note Text: Provided meds. Placed in sling. Assisted to bathroom and back Normal [facility] ED PROV NOTEon 03-06-2025 ED PROV NOTE HNO ID: [id number] Author: KEDAR HERNANDEZ MD Service: Emergency Medicine [...] to p (more content not included)... Normal [facility] CT BRAIN WO IVCONon 03-05-20 CT BRAIN WO IVCON * * *Final Report* * * DATE OF EXAM: Mar 05 2025 11:55PM [facility] 0504 - CT BRAIN WO IVCON [...] wall calcifications, including in the left-sided carotid. Thermodynamic Physicist (topogram) images: Known (in correlation to earlier [...] vertebrae with counting from the craniocervical junction. Insulation Cutter And Former: PSCAmirah Transcribe Date/Time: Mar 06 2025 12:48A Dictated by : CAMELIA GROVES MD This examination was interpreted and the report reviewed and electronically signed by: CAMELIA GROVES MD on Mar 06 2025 1:08AM EST [id number] Normal [facility] CT CERVICAL SPINE WO IVCONon 03-05-2025 CT CERVICAL SPINE WO IVCON * * *Final Report* * * DATE OF EXAM: Mar 05 2025 11:55PM [facility] 0505 - CT CERVICAL SPINE WO [...] wall calcifications, including in the left-sided carotid. Thermodynamic Physicist (topogram) images: Known (in correlation to earlier [...] vertebrae with counting from the craniocervical junction. Insulation Cutter And Former: PSCB Transcribe Date/Time: Mar 06 2025 12:48A Dictated by : CAMELIA GROVES MD This examination was interpreted and the report reviewed and electronically signed by: CAMELIA GROVES MD on Mar 06 2025 1:08AM EST [id number] Normal [facility] ED NOTEon 03-05-2025 ED NOTE HNO ID: [id number] Author: JACK HOLCOMB, RN Service: ? Author Type: Registered Nurse Type: ED Notes Filed: 03/05/2025 23:05 Note Text: Assisted to bathroom and back Normal [facility] ED NOTE HNO ID: [id number] Author: JACK HOLCOMB, BENJIE Service: ? Author Type: Registered Nurse Type: ED Notes Filed: 03/05/2025 22:10 Note Text: Pt c/o fall with right shoulder injury when wheel chair turned over. Denies neck and head injury. [place], warm, dry. No apparent distress. Alert and oriented. Normal [facility] XR HUMERUS 2V AP/LAT RTon XR [...] separation. No dislocation of the glenohumeral joint. Insulation Cutter And Former: PSCB Transcribe Date/Time: Mar 06 2025 12:37A Dictated by : LINNEA DIAS MD This examination was interpreted and the report reviewed and electronically signed by: LINNEA DIAS MD on Mar 06 2025 12:40AM EST [id number] Normal [facility] XR SHLDR >/=3V AP/JR AP/OTH R [...] separation. No dislocation of the glenohumeral joint. Insulation Cutter And Former: PSCB Transcribe Date/Time: Mar 06 2025 12:37A Dictated by : LINNEA DIAS MD This examination was interpreted and the report reviewed and electronically signed by: LINNAE DIAS MD on Mar 06 2025 12:40AM EST [id number] Normal [facility] 02-20-2025 [facility] (PHAMTE[facility] -------- CAL MITCHELL ([id number]) 1945 M Date Time Provider Department 02/20/25 JIMMY CARRIZALES During your visit today, we recorded the following information about you: Jimmy Carrizales, formerly [facility] 02/20/2025 9:00 AM Signed [facility] Ambulatory Pharmacy Anticoagulation Clinic Anticoagulation Episode Summary Anticoagulation Care Providers Provider Role Specialty Phone number Guanakito Reno MD [facility] Family Medicine [phone] Cal Hageroll is a 79 year old [...] ALLERGIES No Known Allergies Indication for Warfarin: intermediate (current) use of anticoagulants Paroxysmal atrial fibrillation [...] missed any doses of warfarin. Jimmy Carrizales formerly [facility] Clinical Pharmacist, Pharmacy Anticoagulation Clinic Pharmacy Anticoagulation Clinic Pager: [phone]. Twin Cole formerly [facility] 03/06/2025 12:38 PM Signed Patient was due [...] on an injectable anticoagulant - No Twin Cole, formerly [facility] Jimmy Carrizales formerly [facility] 03/13/2025 7:40 AM Signed Cal Mitchell was sent MyChart message and reminded to test INR today or as soon as possible. Jimmy Carrizales formerly [facility] Alejandro Molina formerly [facility] 03/20/2025 3:45 PM Signed No INR has been received or is in process at this time, will add to discharge list and start the discharge process at this time. Alejandro Molina formerly [facility] Daniel (Marketing Recruiter)Ashley 03/24/2025 10:52 AM Signed No return call from patient. Letter sent. FINAL ATTEMPT letter sent at this time. If no response from patient within 3 weeks of letter being sent, patient will be discharged from PAC at that time. Will also route to referring MD as FYI and to see if office can assist in reaching patient. Ashley Sanchez CPhT (Appointment Specialist) Pharmacy Anticoagulation Clinic Guanakito Reno MD 03/24/2025 11:17 AM Signed Can we try and call family and see what is up. Geovanna Hinds MA 03/24/2025 11:43 AM Signed Left message for daughterJanuary to call back and speak with triage nurse. Geovanna Hinds MA March 24, 2025 11:43 AM Allergies As of Date: 02/20/2025 (No Known Allergies) Date Reviewed: 01/21/2025 Reviewed by: Geovanna Hinds MA - Fully Assessed Reason for Visit: Anticoagulation Telephone Fu [148] Cmt: Home INR Primary Visit Diagnosis:intermediate (current) use of anticoagulants [Z79.01] Other Visit [...] (more content not included)... Normal [facility] CNPNon 01-31-2025 CNPN Telephone (PHAMTE) -------- CAL MITCHELL ([id number]) 1945 M Date Time Provider Department 01/31/25 KAMRAN AYON During your visit today, we recorded the following information about you: Kamran Ayon formerly [facility] 01/31/2025 12:55 PM Signed [facility] Anticoagulation Clinic Anticoagulation Episode Summary Anticoagulation Care Providers Provider Role Specialty Phone number Guanakito Reno MD [facility] Family Medicine [phone] Cal [place] Paula is a 79 year [...] ALLERGIES No Known Allergies Indication for Warfarin: intermediate (current) use of anticoagulants Paroxysmal atrial fibrillation [...] missed any doses of warfarin. Kamran Ayon formerly [facility] Clinical Pharmacist, Pharmacy Anticoagulation Clinic Pharmacy Anticoagulation Clinic Pager: [phone]. Kamran Ayon RPh 02/14/2025 9:53 AM Signed [...] an injectable anticoagulant - No Kamran Ayon bobbi Allergies As of Date: 01/31/2025 (No Known Allergies) Date Reviewed: 01/21/2025 Reviewed by: Geovanna Hinds MA - Fully Assessed Reason for Visit: Anticoagulation Telephone Fu [148] Cmt: INR Home Test Result Primary Visit Diagnosis:intermediate (current) use of anticoagulants [Z79.01] Other Visit [...] (more content not included)... Normal [facility] CBC W Auto Differential pane l (Bld)on 01-21-2025 Basophils (Bld) [#/Vol] 0.07 10*3/uL Normal <0.11 [facility] Comment on above: Order Comment: Speci men Type: BLOOD SPECIMENOrdering Facility: [facility] Address: [address] [place] [address] Performed By: #### 5 7021-8 ####[facility] LABCLIA [id number] [place] [address] [place] Basophils/100 WBC (Bld) 0.9 % Normal [facility] Comment on above: Order Comment: Speci men Type: BLOOD SPECIMENOrdering Facility: [facility] Address: [address] [place] [address] Performed By: #### 5 7021-8 ####[facility] LABCLIA [id number] [place] [address] [place] Differential cell count method Nom (Bld) Auto Normal [facility] Comment on above: Order Comment: Speci men Type: BLOOD SPECIMENOrdering Facility: [facility] Address: [address] [place] [address] Performed By: #### 5 7021-8 ####[facility] LABCLIA [id number] [place] [address] [place] Eosinophils (Bld) [#/Vol] 0.25 10*3/uL Normal <0.46 [facility] Comment on above: Order Comment: Speci men Type: BLOOD SPECIMENOrdering Facility: [facility] Address: [address] [place] [address] Performed By: #### 5 7021-8 ####[facility] LABCLIA [id number] [address] [place] Eosinophils/100 WBC (Bld) 3.3 % Normal [facility] Comment on above: Order Comment: Speci men Type: BLOOD SPECIMENOrdering Facility: [facility] Address: [address] [place] [address] Performed By: #### 5 7021-8 ####[facility] LABCLIA [id number] [place] [address] [place] Erythrocyte distribution width (RBC) [Ratio] 14.8 % Normal 11.5-15.0 [facility] Comment on above: Order Comment: Speci men Type: BLOOD SPECIMENOrdering Facility: [facility] Address: [address] [place] [address] Performed By: #### 5 7021-8 ####[facility] LABIA [id number] [place] [address] [place] Hematocrit (Bld) [Volume fraction] 41.2 % Normal 39.0-51.0 [facility] Comment on above: Order Comment: Speci men Type: BLOOD SPECIMENOrdering Facility: [facility] Address: [address] [place] [address] Performed By: #### 5 7021-8 ####[facility] LABIA [id number] [place] [address] [place] Hemoglobin (Bld) [Mass/Vol] 12.5 g/dL Low 13.0-17.0 [facility] Comment on above: Order Comment: Speci men Type: BLOOD SPECIMENOrdering Facility: [facility] Address: [address] [place] [address] Performed By: #### 5 7021-8 ####[facility] LABIA [id number] [place] [address] [place] Immature granulocytes (Bld) [#/Vol] 10*3/uL Normal <0.10 [facility] Comment on above: Order Comment: Speci men Type: BLOOD SPECIMENOrdering Facility: [facility] Address: [address] [place] [address] Performed By: #### 5 7021-8 ####[facility] LABIA [id number] [place] [address] [place] Immature granulocytes/100 WBC (Bld) 0.3 % Normal [facility] Comment on above: Order Comment: Speci men Type: BLOOD SPECIMENOrdering Facility: [facility] Address: [address] [place] [address] Performed By: #### 5 7021-8 ####[facility] LABCLIA [id number] [place] [address] [place] Lymphocytes (Bld) [#/Vol] 1.28 10*3/uL Normal 1.00-4.00 [facility] Comment on above: Order Comment: Speci men Type: BLOOD SPECIMENOrdering Facility: [facility] Address: [address] [place] [address] Performed By: #### 5 7021-8 ####[facility] LABCLIA [id number] [place] [address] [place] Lymphocytes/100 WBC (Bld) 17.1 % Normal [facility] Comment on above: Order Comment: Speci men Type: BLOOD SPECIMENOrdering Facility: [facility] Address: [address] [place] [address] Performed By: #### 5 7021-8 ####[facility] LABCLIA [id number] [place] [address] [place] MCH (RBC) [Entitic mass] 29.3 pg Normal 26.0-34.0 [facility] Comment on above: Order Comment: Speci men Type: BLOOD SPECIMENOrdering Facility: [facility] Address: [address] [place] [address] Performed By: #### 5 7021-8 ####[facility] LABCLIA [id number] [place] [address] [place] MCHC (RBC) [Mass/Vol] 30.3 g/dL Low 30.5-36.0 [facility] Comment on above: Order Comment: Speci men Type: BLOOD SPECIMENOrdering Facility: [facility] Address: [address] [place] [address] Performed By: #### 5 7021-8 ####[facility] LABCLIA [id number] [place] [address] [place] MCV (RBC) [Entitic vol] 96.7 fL Normal 80.0-100.0 [facility] Comment on above: Order Comment: Speci men Type: BLOOD SPECIMENOrdering Facility: [facility] Address: [address] [place] [address] Performed By: #### 5 7021-8 ####[facility] LABCLIA [id number] [place] [address] [place] Monocytes (Bld) [#/Vol] 0.61 10*3/uL Normal <0.87 [facility] Comment on above: Order Comment: Speci men Type: BLOOD SPECIMENOrdering Facility: [facility] Address: [address] [place] [address] Performed By: #### 5 7021-8 ####[facility] LABCLIA [id number] [place] [address] [place] Monocytes/100 WBC (Bld) 8.2 % Normal [facility] Comment on above: Order Comment: Speci men Type: BLOOD SPECIMENOrdering Facility: [facility] Address: [address] [place] [address] Performed By: #### 5 7021-8 ####[facility] LABCLIA [id number] [place] [address] [place] Neutrophils (Bld) [#/Vol] 5.25 10*3/uL Normal 1.45-7.50 [facility] Comment on above: Order Comment: Speci men Type: BLOOD SPECIMENOrdering Facility: [facility] Address: [address] [place] [address] Performed By: #### 5 7021-8 ####[facility] LABCLIA [id number] [place] [address] [place] Neutrophils/100 WBC (Bld) 70.2 % Normal [facility] Comment on above: Order Comment: Speci men Type: BLOOD SPECIMENOrdering Facility: [facility] Address: [address] [place] [address] Performed By: #### 5 7021-8 ####[facility] LABIA [id number] [address] [address] [place] Nucleated RBC (Bld) [#/Vol] 10*3/uL Normal <0.01 [facility] Comment on above: Order Comment: Speci men Type: BLOOD SPECIMENOrdering Facility: [facility] Address: [address] [place] [address] Performed By: #### 5 7021-8 ####[facility] LABIA [id number] [place] [address] [place] Nucleated RBC/100 WBC (Bld) [Ratio] 0.0 /100 WBC Normal [facility] Comment on above: Order Comment: Speci men Type: BLOOD SPECIMENOrdering Facility: [facility] Address: [address] [place] [address] Performed By: #### 5 7021-8 ####[facility] LABIA [id number] [place] [address] [place] Platelet mean volume (Bld) [Entitic vol] 10.3 fL Normal 9.0-12.7 [facility] Comment on above: Order Comment: Speci men Type: BLOOD SPECIMENOrdering Facility: [facility] Address: [address] [place] [address] Performed By: #### 5 7021-8 ####[facility] LABIA [id number] [place] [address] [place] Platelets (Bld) [#/Vol] 198 10*3/uL Normal 150-400 [facility] Comment on above: Order Comment: Speci men Type: BLOOD SPECIMENOrdering Facility: [facility] Address: [address] [place] [address] Performed By: #### 5 7021-8 ####[facility] LABCLIA [id number] [place] [address] [place] RBC (Bld) [#/Vol] 4.26 10*6/uL Normal 4.20-6.00 [facility] Comment on above: Order Comment: Speci men Type: BLOOD SPECIMENOrdering Facility: [facility] Address: [address] [place] [address] Performed By: #### 5 7021-8 ####[facility] LABIA [id number] [place] [address] [place] WBC (Bld) [#/Vol] 7.48 10*3/uL Normal 3.70-11.00 [facility] Comment on above: Order Comment: Speci men Type: BLOOD SPECIMENOrdering Facility: [facility] Address: [address] [place] [address] Performed By: #### 5 7021-8 ####[facility] LABIA [id number] [place] [address] [place] CNOVon 01-21-2025 CNOV Office Visit (FAMPWS ) -------- CAL MITCHELL ([id number]) 1945 M Date Time Provider Department 01/21/25 3:40 PM CAROLINA LANDEROS FAMPWS During your visit today, we recorded the following information about you: Temperature Pulse Blood pressure Weight 97.6 degrees 59/minute 122/60 117 kg Carolina Landeros APRN.TELEGRAPHIC TYPEWRITER INSTALLER 01/21/2025 4:11 PM Signed This is a [...] taking lisinopril Monitors bp at home: Yes. [place] checks it, ok there Denies side effects: [...] 250.00. Insulin: No Lancets (ONE TOUCH DELICA) [facility] lancets Test blood sugar(s) one time daily. [...] (20.0 ttl (more content not included)... Normal [facility] metabolic 2000 panelon 01-21-2025 Albumin [Mass/Vol] 4.1 g/dL Normal 3.9-4.9 [facility] Comment on above: Order Comment: Speci men Type: BLOOD SPECIMENOrdering Facility: [facility] Address: [address] [place] [address] Performed By: #### 2 132-9, 29537-9, 76430-0, LIPNF ####[facility] LABCLIA [id number] [place] [address] [place] ALP [Catalytic activity/Vol] 153 U/L High 38-113 [facility] Comment on above: Order Comment: Speci men Type: BLOOD SPECIMENOrdering Facility: [facility] Address: [address] [place] [address] Performed By: #### 2 132-9, 27137-0, 32225-6, LIPNF ####[facility] LABCLIA [id number] [place] [address] [place] ALT [Catalytic activity/Vol] 19 U/L Normal 10-54 [facility] Comment on above: Order Comment: Speci men Type: BLOOD SPECIMENOrdering Facility: [facility] Address: [address] [place] [address] Performed By: #### 2 132-9, 81598-2, 17356-0, LIPNF ####[facility] LABCLIA [id number] [place] [address] [place] Anion gap [Moles/Vol] 15 mmol/L Normal 8-15 [facility] Comment on above: Order Comment: Speci men Type: BLOOD SPECIMENOrdering Facility: [facility] Address: [address] [place] [address] Performed By: #### 2 132-9, 56788-1, 75478-8, LIPNF ####[facility] LABCLIA [id number] [address] [address] [place] AST [Catalytic activity/Vol] 23 U/L Normal 14-40 [facility] Comment on above: Order Comment: Speci men Type: BLOOD SPECIMENOrdering Facility: [facility] Address: [address] [place] [address] Performed By: #### 2 132-9, 02463-2, , LIPNF ####[facility] LABCLIA [id number] [address] [address] [place] Bilirubin [Mass/Vol] 0.6 mg/dL Normal 0.2-1.3 [facility] Comment on above: Order Comment: Speci men Type: BLOOD SPECIMENOrdering Facility: [facility] Address: [address] [place] [address] Performed By: #### 2 132-9, 28462-9, , LIPNF ####[facility] LABCLIA [id number] [place] [address] [place] Calcium [Mass/Vol] 8.8 mg/dL Normal 8.5-10.2 [facility] Comment on above: Order Comment: Speci men Type: BLOOD SPECIMENOrdering Facility: [facility] Address: [address] [place] [address] Performed By: #### 2 132-9, 51950-7, , LIPNF ####[facility] LABCLIA [id number] [place] [address] [place] Chloride [Moles/Vol] 106 mmol/L Normal 98-107 [facility] Comment on above: Order Comment: Speci men Type: BLOOD SPECIMENOrdering Facility: [facility] Address: [address] [place] [address] Performed By: #### 2 132-9, 29010-8, , LIPNF ####[facility] LABCLIA [id number] [address] [address] [place] CO2 [Moles/Vol] 21 mmol/L Low 22-30 [facility] Comment on above: Order Comment: Speci men Type: BLOOD SPECIMENOrdering Facility: [facility] Address: [address] [place] [address] Performed By: #### 2 132-9, 58736-6, 83093-7, LIPNF ####[facility] LABCLIA [id number] [address] [address] [place] Creatinine [Mass/Vol] 2.34 mg/dL High 0.73-1.22 [facility] Comment on above: Order Comment: Speci men Type: BLOOD SPECIMENOrdering Facility: [facility] Address: [address] [place] [address] Performed By: #### 2 132-9, 56992-8, , LIPNF ####[facility] LABCLIA [id number] [place] [address] [place] Creatinine and Glomerular filtration rate.predicted panel (S/P/Bld) 27 mL/min/1.73m??? Low >=60 [facility] Comment on above: Order Comment: Speci men Type: BLOOD SPECIMENOrdering Facility: [facility] Address: [address] [place] [address] Result Comment: Lina mated Glomerular Filtration Rate [...] accurately reflect actual GFR. Performed By: #### 2 132-9, 62275-7, 61254-1, LIPNF ####[facility] LABCLIA [id number] [address] [address] [place] Glucose [Mass/Vol] 122 mg/dL High 74-99 [facility] Comment on above: Order Comment: Speci men Type: BLOOD SPECIMENOrdering Facility: [facility] Address: [address], [place] [address] Result Comment: The [place] Diabetes Association (ADA) provides guidance for cutoff [...] Standards of Medical Care in Diabetes 2016, [place] Diabetes Association. Diabetes Care. 2016.39(Suppl 1). Performed By: #### 2 132-9, 13430-5, , LIPNF ####[facility] LABCLIA [id number] [place] [address] [place] Potassium [Moles/Vol] 4.3 mmol/L Normal 3.7-5.1 [facility] Comment on above: Order Comment: Speci men Type: BLOOD SPECIMENOrdering Facility: [facility] Address: [address] [place] [address] Performed By: #### 2 132-9, , , LIPNF ####[facility] LABIA [id number] [place] [address] [place] Protein [Mass/Vol] 7.2 g/dL Normal 6.3-8.0 [facility] Comment on above: Order Comment: Speci men Type: BLOOD SPECIMENOrdering Facility: [facility] Address: [address] [place] [address] Performed By: #### 2 132-9, , , LIPNF ####[facility] LABCLIA [id number] [place] [address] [place] Sodium [Moles/Vol] 142 mmol/L Normal 136-144 [facility] Comment on above: Order Comment: Speci men Type: BLOOD SPECIMENOrdering Facility: [facility] Address: [address] [place] [address] Performed By: #### 2 132-9, 68470-7, , LIPNF ####[facility] LABCLIA [id number] [address] [address] [place] Urea nitrogen [Mass/Vol] 29 mg/dL High 9-24 [facility] Comment on above: Order Comment: Marcelle men Type: BLOOD SPECIMENOrdering Facility: [facility] Address: [address] [place] [address] Performed By: #### 2 132-9, 33791-0, , LIPNF ####[facility] LABCLIA [id number] [address] [address] [place] HbA1c (Bld)on 01-21-2025 Average glucose Estimated from glycated hemoglobin (Bld) [Mass/Vol] 146 mg/dL Normal [facility] Comment on above: Order Comment: Marcelle shultz Type: BLOOD SPECIMENOrdering Facility: [facility] Address: [address] [place] [address] Result Comment: eAG: (Estimated average glucose) is a calculated value from HgbA1c and is wire rope sales representative of the average blood glucose level in the last 2-3 month period. Performed By: #### 5 5454-3 ####[facility] LABCLIA [id number] [address] [address] [place] HbA1c (Bld) [Mass fraction] 6.7 % High 4.3-5.6 [facility] Comment on above: Order Comment: Marcelle shultz Type: BLOOD SPECIMENOrdering Facility: [facility] Address: [address] [place] [address] Result Comment: [place] Diabetes Association guidelines indicate that patients with HgbA1c in the range 5.7-6.4% are at increased risk for development of diabetes, and intervention by lifestyle modification may be beneficial. HgbA1c greater or equal to 6.5% is considered diagnostic of diabetes. Performed By: #### 5 5454-3 ####[facility] LABCLIA [id number] [place] [address] [place] LIPID PANEL, NONFASTINGon Cholesterol [Mass/Vol] 164 mg/dL Normal <200 [facility] Comment on above: Order Comment: Speci men Type: BLOOD SPECIMENOrdering Facility: [facility] Address: [address] [place] [address] Result Comment: <200 mg/dL, Desirable 200-239 mg/dL, Borderline high >239 mg/dL, High Performed By: #### 2 132-9, 70717-5, 53601-6, LIPNF ####[facility] LABCLIA [id number] [place] [address] [place] HDL CHOLESTEROL, NF 42 mg/dL Normal >39 [facility] Comment on above: Order Comment: Speci men Type: BLOOD SPECIMENOrdering Facility: [facility] Address: [address] [place] [address] Result Comment: 40-5 9 mg/dL, Acceptable >59 mg/dL, High: Negative risk factor for coronary heart disease <40 mg/dL, Low: Positive risk factor for coronary heart disease Performed By: #### 2 132-9, 98714-9, 16034-9, LIPNF ####[facility] LABCLIA [id number] [address] [place] LDL CHOLESTEROL, NF 96 mg/dL Normal <100 [facility] Comment on above: Order Comment: Speci men Type: BLOOD SPECIMENOrdering Facility: [facility] Address: [address] [place] [address] Result Comment: <100 mg/dL, Optimal 100-129 mg/dL, Near optimal/above optimal 130-159 mg/dL, Borderline high 160-189 mg/dL, High >189 mg/dL, Very high Secondary prevention optimal LDL Cholesterol levels are recommended to be < 70 mg/dL Performed By: #### 2 132-9, 13894-2, 24674-4, LIPNF ####[facility] LABCLIA [id number] [address] [address] [place] LDL/HDL RATIO, NF 2.29 mg/dL Normal <2.54 [facility] Comment on above: Order Comment: Speci men Type: BLOOD SPECIMENOrdering Facility: [facility] Address: [address] [place] [address] Result Comment: Refe katece: 1. National Cholesterol Education Program ATP III Guideline At-A-Glance Quick Desk Reference: National Heart, Lung, and Blood [place]. National Institutes of Health. 2001: NIH Publication No. 01-3305. 2. An International Atherosclerosis Society position paper: global recommendations for the management of dyslipidemia: executive summary, Atherosclerosis. 2014: 232(2):410-413. Performed By: #### 2 132-9, 41941-1, 05779-1, LIPNF ####[facility] LABIA [id number] [place] [address] [place] NON HDL CHOL, NF 122 mg/dL Normal <130 [facility] Comment on above: Order Comment: Speci men Type: BLOOD SPECIMENOrdering Facility: [facility] Address: [address] [place] [address] Result Comment: <130 mg/dL, Optimal 130-159 mg/dL, Near optimal/above optimal 160-189 mg/dL, Borderline high 190-219 mg/dL, High >219 mg/dL, Very high Secondary prevention optimal non HDL Cholesterol levels are recommended to be <100 mg/dL Performed By: #### 2 132-9, 50431-1, 90291-2, LIPNF ####[facility] LABIA [id number] [place] [id number] [facility] T CHOL/HDL RATIO NF 3.90 mg/dL Normal <5.10 [facility] Comment on above: Order Comment: Speci men Type: BLOOD SPECIMENOrdering Facility: [facility] Address: [address] [place] [address] Performed By: #### 2 132-9, 24305-0, 65001-8, LIPNF ####[facility] LABCLIA [id number] [place] [address] [place] TRIGLYCERIDES, NF 129 mg/dL Normal <150 [facility] Comment on above: Order Comment: Speci men Type: BLOOD SPECIMENOrdering Facility: [facility] Address: [address] [place] [address] Result Comment: <150 mg/dL, Normal 150-199 mg/dL, Borderline high 200-499 mg/dL, High >499 mg/dL, Very high Performed By: #### 2 132-9, 79480-9, , LIPNF ####[facility] LABCLIA [id number] [place] [address] [place] VLDL CHOLESTEROL, NF 26 mg/dL Normal <30 [facility] Comment on above: Order Comment: Speci men Type: BLOOD SPECIMENOrdering Facility: [facility] Address: [address] [place] [address] Performed By: #### 2 132-9, 09546-8, , LIPNF ####[facility] LABIA [id number] [place] [address] [place] Magnesium SerPl-mCncon 01-21 Magnesium [Mass/Vol] 2.3 mg/dL Normal 1.7-2.3 [facility] Comment on above: Order Comment: Speci men Type: BLOOD SPECIMENOrdering Facility: [facility] Address: [address] [place] [address] Performed By: #### 2 132-9, 30804-2, , LIPNF ####[facility] LABCLIA [id number] [place] [address] [place] Vit B12 SerPl-mCncon 025 Cobalamin (Vitamin B12) [Mass/Vol] 385 pg/mL Normal 232-1245 [facility] Comment on above: Order Comment: Speci men Type: BLOOD SPECIMENOrdering Facility: [facility] Address: [address] [place] [address] Performed By: #### 2 132-9, 58844-5, 45014-6, LIPRENATO ####[facility] [facility] [id number] JESICA MARSHALL [address] [place] CNPNon 01-08-2025 CNPN Telephone (PHAMTE) -------- CAL MITCHELL ([id number]) 1945 M Date Time Provider Department 01/08/25 RUTHIE CUEVAS During your visit today, we recorded the following information about you: Ruthie Cuevas RPh 01/08/2025 9:14 AM Signed [facility] Anticoagulation Clinic Anticoagulation Episode Summary Anticoagulation Care Providers Provider Role Specialty Phone number Guanakito Reno MD [facility] Family Medicine [phone] Cal Mitchell is a 79 year old [...] ALLERGIES No Known Allergies 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 Ruthie Cuevas RPh 01/29/2025 11:08 AM Addendum Cal Mitchell was called and reminded to test INR today or as soon as possible. LVMX for January. 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 Dx: 250.00. Insulin: No Problem List As Of Date 01/08/2025 (more content not included)... Normal [facility] Molly 12-30-2024 LUCIO Telephone ([facility]) -------- CAL MITCHELL ([id number]) 1945 M Date Time Provider Department 12/30/24 TWIN COLE During your visit today, we recorded the following information about you: Twin Cole formerly [facility] 12/30/2024 9:14 AM Signed [facility] Pharm[facility] Anticoagulation Clinic Anticoagulation Episode Summary Anticoagulation Care Providers Provider Role Specialty Phone number Guanakito Reno MD [facility] [phone] Cal Mitchell is a 79 year old [...] missed any doses of warfarin. Twin Cole formerly [facility] Clinical Pharmacist, Pharmacy Anticoagulation Clinic Pharmacy Anticoagulation Clinic Pager: [phone]. Octavio (Marketing Recruiter)Ruben 12/30/2024 9:15 AM Signed Roscoe'larry called regarding INR result for patient. Result has been addressed below, no further action needed. Ruben Cunningham, Appointment Specialist (pantograph ii engraver) Pharmacy Anticoagulation Clinic Jimmy Carrizales formerly [facility] 01/07/2025 12:02 PM Signed Cal Mitchell was called, lvmx and reminded to test INR today or as soon as possible given that we left a VM last week also. Jimmy Carrizales formerly [facility] Allergies As of Date: 12/30/2024 (No Known Allergies) Date Reviewed: 08/06/2024 Reviewed by: Carolin Cantu LPN - Fully Assessed Reason for [...] Insulin: No - Lancets (ONE TOUCH DELICA) [facility] lancets Test blood sugar(s (more content not included)... Normal [facility] 12-11-2024 [facility] Telephone (SANJAYE) -------- CAL MITCHELL ([id number]) 1945 M Date Time Provider Department 12/11/24 JIMMY CARRIZALES During your visit today, we recorded the following information about you: Jimmy Carrizales formerly [facility] 12/11/2024 9:51 AM Signed [facility] Pharm[facility] Anticoagulation Clinic Anticoagulation Episode Summary Anticoagulation Care Providers Provider Role Specialty Phone number Guanakito Reno MD [facility] Family Medicine [phone] Cal Mitchell is a 79 year old [...] ALLERGIES No Known Allergies Indication for Warfarin: intermediate (current) use of anticoagulants Paroxysmal atrial fibrillation [...] missed any doses of warfarin. Jimmy Carrizales formerly [facility] Clinical Pharmacist, Pharmacy Anticoagulation Clinic Pharmacy Anticoagulation Clinic Pager: [phone]. Ruthie Cuevas RPh 12/25/2024 11:14 AM Signed [...] on an injectable anticoagulant - No Ruthie Cuevas, [place] [facility] Allergies As of Date: 12/11/2024 (No Known Allergies) Date Reviewed: 08/06/2024 Reviewed by: Carolin Cantu LPN - Fully Assessed Reason for Visit: Anticoagulation Telephone Fu [148] Cmt: Home INR Primary Visit Diagnosis:intermediate (current) use of anticoagulants [Z79.01] Other Visit [...] sugar grey (more content not included)... Normal [facility] CNPNon 11-26-2024 CNPN Telephone (PHAMTE) -------- CAL MITCHELL ([id number]) 1945 M Date Time Provider Department 11/26/24 T[place] During your visit today, we recorded the following information about you: Twin Cole RPh 11/26/2024 5:29 PM Signed [facility] Anticoagulation Clinic Anticoagulation Episode Summary Anticoagulation Care Providers Provider Role Specialty Phone number Guanakito Reno MD [facility] Family Medicine [phone] Cal Mitchell is a 79 year old [...] Pharmacy Anticoagulation Clinic Pharmacy Anticoagulation Clinic Pager: [phone]. Yamilka Heath RN 11/27/2024 8:43 AM Signed Chris Ruggiero left a VM regarding the patient's INR result on 11/26/2024. Noted result has been addressed below. BENJIE Cardenas Kim, RPh 12/10/2024 10:31 AM Signed Cal Mitchell was called and reminded to test INR today or as soon as possible. Left VM on . Twin Cole RPh Allergies As of Date: 11/26/2024 (No Known Allergies) Date Reviewed: 08/06/2024 Reviewed by: Carolin Cantu LPN - Fully Assessed Reason for [...] (more content not included)... Normal [facility] CNPNon 10-28-2024 CNPN Telephone (PHAMTE) -------- PAULACAL CRAIG ([id number]) 1945 M Date Time Provider Department 10/28/24 ALEJANDRO MOLINA PHAMTE During your visit today, we recorded the following information about you: Alejandro Molina bobbi 10/28/2024 5:07 PM Signed [facility] Ambulatory Pharmacy Anticoagulation Clinic Anticoagulation Episode Summary Anticoagulation Care Providers Provider Role Specialty Phone number Guanakito Reno MD [facility] [phone] Cal Mitchell is a 79 year old [...] instructed to call Pharm[facility] at [phone] with any questions or concerns. Alejandro Molina formerly [facility] Clinical Pharmacist, Pharmacy Anticoagulation Clinic Pharmacy Anticoagulation Clinic Pager: [phone] Alejandro Molina formerly [facility] 11/11/2024 4:42 PM Signed Patient was due to test INR today. Will continue to monitor for results. Will follow up in one week if no results received. Alejandro Molina formerly [facility] 11/18/2024 4:27 PM Signed Cal Mitchell was called and reminded to test INR today or as soon as possible. Alejandro Molina formerly [facility] KelseyTwin formerly [facility] 11/25/2024 2:53 PM Signed Added to discharge list Daniel (Marketing Recruiter)Ashley 11/26/2024 2:43 PM Signed DISCHARGE No return call from patient. Letter sent. FINAL ATTEMPT letter sent at this time. If no response from patient within 4 weeks, patient will be discharged from PAC at that time. Will also route to referring MD as FYI and to see if office can assist in reaching patient. Ashley Sanchez CPhT (Appointment Specialist) Pharmacy Anticoagulation Clinic Guanakito Reno MD 11/26/2024 3:14 PM Signed Check what is going on with his inr. Carolina Alba MA 11/26/2024 3:41 PM Signed Spoke with son-in-law Gustavo in great depth. He is going to call his January (Patients daughter) and get the date of [...] 4:55 PM Signed Called and spoke to Ashlyn. Gave them the pharmacy [facility] phone number and they are going to [...] understand things anymore. 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 CHANCE Ramirez (Marketing Recruiter)Ashley 11/26/2024 5:07 PM Signed PATIENT CALL Patient [...] received. PAC will await results. Ashley Sanchez ([facility] (more content not included)... Normal [facility] Molly 10-21-2024 [facility] -------- CAL MITCHELL ([id number]) 1945 M Date Time Provider Department 10/21/24 [facility] During your visit today, we recorded [...] Known Allergies) Date Reviewed: 08/06/2024 Reviewed by: Carolin Cantu LPN - Fully Assessed Reason for Visit: Patient Update [1234] Patient Question [8537] Prescriptions as of 10/21/2024 - atorvastatin (LIPITOR) [...] Insulin: No - Lancets (ONE TOUCH DELICA) [facility] lancets Test blood sugar(s) one time daily. [...] stenosis of unspecified carotid a*10/25/2013 03/26/2024 Frequency [[id number]] 02/11/2016 03/26/2024 BPH (benign prostatic hypertrophy) with urinary*02/11/2016 Adhesive capsulitis of right shoulder [M75.01] 05/15/2018 Aortic stenosis [I35.0] 05/24/2018 CKD (chronic kidney disease) stage 3, GFR 30-59*05/24/2018 03/26/2024 Lung (more content not included)... Normal [facility] CNPNon 10-01-2024 CNPN Telephone (PHAMTE) -------- CAL MITCHELL ([id number]) 1945 M Date Time Provider Department 10/01/24 [place] During your visit today, we recorded the following information about you: Twin Cole formerly [facility] 10/01/2024 9:42 AM Signed [facility]ulatory Pharmacy Anticoagulation Clinic Anticoagulation Episode Summary Anticoagulation Care Providers Provider Role Specialty Phone number Guanakito Reno MD [facility] Family Medicine [phone] Cal Mitchell is a 79 year old [...] Pharmacy Anticoagulation Clinic Pharmacy Anticoagulation Clinic Pager: [phone]. Twin Cole RPh 10/15/2024 12:10 PM Signed [...] Known Allergies) Date Reviewed: 08/06/2024 Reviewed by: Carolin Cantu LPN - Fully Assessed Reason for [...] tablet Dissolve (more content not included)... Normal [facility] 08-26-2024 CNPN Telephone (PHAMTE) -------- CAL MITCHELL ([id number]) 1945 M Date Time Provider Department 08/26/24 ALEJANDRO MOLINA During your visit today, we recorded the following information about you: Alejandro Molina RPh 08/26/2024 6:35 AM Signed [facility]ulatory Pharmacy Anticoagulation Clinic Anticoagulation Episode Summary Anticoagulation Care Providers Provider Role Specialty Phone number Guanakito Reno MD [facility] Family Medicine [phone] Cal Lua Paula is a 79 year [...] warfarin instructions: 5 mg every day Sent [employer] message Advised patient to continue current weekly dose as noted above Next INR check due on 09/09/2024 Alejandro Molina formerly [facility] Clinical Pharmacist, Pharmacy Anticoagulation Clinic Pharmacy Anticoagulation Clinic Pager: [phone]. Alejandro Molina RPh 09/09/2024 4:38 PM Signed Patient was due to test INR today. Will continue to monitor for results. Will follow up in one week if no results received. Alejandro Molina RPh 09/23/2024 2:35 PM Signed Cal Mitchell was called and reminded to test INR today or as soon as possible. Stuart Costa Kim, RPh 09/30/2024 12:31 PM Signed Added to discharge list Allergies As of Date: 08/26/2024 (No Known Allergies) Date Reviewed: 08/06/2024 Reviewed by: Carolin Cantu LPN - Fully Assessed Reason for [...] Insulin: No - Lancets (ONE TOUCH DELICA) [facility] lancets Test blood sugar(s) one time daily. Dx: 250.00. Insulin: No Problem List As Of Date 08/26/2024 Noted Resolved Hyperlipidemia, mixed [E78.2] Essential hypertension [I10] Peripheral arterial disease (HCC) [I73.9] Other symptoms involving cardiovascular system * 07/20/2016 ACTINIC KERATOSIS [L57.0] 10/12/2005 IMPACTED CERUMEN [H61.20] (more content not included)... [facility]RTNEY[facility] 08-16-2024 LUCIO Telephone ([facility]) -------- CAL MITCHELL ([id number]) 1945 M Date Time Provider Department 08/16/24 MADDIEJIMMY [facility] During your visit today, we recorded [...] Known Allergies) Date Reviewed: 08/06/2024 Reviewed by: Carolin Cantu LPN - Fully Assessed Reason for [...] Insulin: No - Lancets (ONE TOUCH DELICA) [facility] lancets Test blood sugar(s) one time daily. 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 Normal [facility] Renal Profileon 08-07-2024 Albumin [Mass/Vol] 3.3 g/dL Normal 3.2-5.0 [facility] Comment on above: Performed By: #### L 500.3600 #### [facility] [address] [place], [address] BUN/CRE 14.3 RATIO Normal 10-20 [facility] Comment on above: Performed By: #### L 500.3600 #### [facility] [address] [place], [address] CA,Total 8.4 mg/dL Low 8.5-10.1 [facility] Comment on above: Performed By: #### L 500.3600 #### [facility] [address] [place], [address] Chloride [Moles/Vol] 114 mmol/L High 98-107 [facility] Comment on above: Performed By: #### L 500.3600 #### [facility] [address] [place], [address] CO2 [Moles/Vol] 25.0 mmol/L Normal 21.0-32.0 [facility] Comment on above: Performed By: #### L 500.3600 #### [facility] [address] [place], [address] Creatinine [Mass/Vol] 2.45 mg/dL High 0.70-1.30 [facility] Comment on above: Result Comment: The validity of the calculated GFR GFRAA in patients over 70 years has not been determined. Clinical correlation is essential. Performed By: #### L 500.3600 #### [facility] [address] [place], [address] EST GFR - AA 33 mL/min Low >60 [facility] Comment on above: Result Comment: Afri can Croatian GFR Calc Performed By: #### L 500.3600 #### [facility] [address] [place], [address] GFR/1.73 sq M.predicted among non-blacks MDRD (S/P/Bld) [Vol rate/Area] 27 mL/min/{1.73_m2} Low >60 [facility] Comment on above: Result Comment: Non- GFR Calc Performed By: #### L 500.3600 #### [facility] [address] [place], [address] Glucose [Mass/Vol] 111 mg/dL High 74-106 [facility] Comment on above: Result Comment: Fast ing Glucose result from 100 to 125 mg/dL suggests IMPAIRED HOMEOSTASIS per A.D.A. criteria. Performed By: #### L 500.3600 #### [facility] [address] [place], [address] Phosphate [Mass/Vol] 2.9 mg/dL Normal 2.5-4.9 [facility] Comment on above: Performed By: #### L 500.3600 #### [facility] [address] [place], [address] Potassium [Moles/Vol] 4.5 mmol/L Normal 3.5-5.1 [facility] Comment on above: Performed By: #### L 500.3600 #### [facility] [address] [place], [address] Sodium [Moles/Vol] 144 mmol/L Normal 136-145 [facility] Comment on above: Performed By: #### L 500.3600 #### [facility] [address] [place], [address] Urea nitrogen [Mass/Vol] 35 mg/dL High 7-18 [facility] Comment on above: Performed By: #### L 500.3600 #### [facility] [address] [place], [address] ECG B/O W INTERP (MED OFFICE )on 07-10-2024 Sinus rhythm with fi rst degree heart block [facility] US Kidney - bilateral and Ur inary bladderon 05-02-2024 IMPRESSION: No hydronephrosis. Cholelithiasis. Insulation Cutter And Former: MAC Transcribe Date/Time: May 02 2024 7:17P Dictated by : TIN COTTER DO This examination was interpreted and the report reviewed and electronically signed by: TIN COTTER DO on May 02 2024 7:19PM [facility] DIVISION OF RADIOLOGY * * *Final [...] Incidentally noted cholelithiasis. DIVISION OF RADIOLOGY Provider, [facility] - 05/02/2024 * * *Final Report* * [...] noted cholelithiasis. IMPRESSION IMPRESSION: No hydronephrosis. Cholelithiasis. Insulation Cutter And Former: PSCB Transcribe Date/Time: May 02 2024 7:17P Dictated by : TIN COTTER DO This examination was interpreted and the report reviewed and electronically signed by: TIN COTTER DO on May 02 2024 7:19PM EST [facility] Radiology Study observation (narrative) [facility] ino [facility] US Kidney - bilateral and Ur inary bladderOrdered By: Ccf Provider on 05-02-2024 [facility] NT PRO BNPon 03-26-2024 Natriuretic peptide.B prohormone N-Terminal [Mass/Vol] 501 pg/mL High NINF - 450 pg/mL [facility] Natriuretic peptide.B prohor jodie N-Terminal [Mass/Vol]on 03-26-2024 Interpretation and review of laboratory results Abnormal [facility] THYROID STIMULATING HORMONEo n 03-26-2024 TSH Qn 2.950 m[IU]/L [facility] TSH Qnon 03-26-2024 Interpretation and review of laboratory results Normal [facility] CBC panel Auto (Bld)on 03-25 Erythrocyte distribution width (RBC) [Ratio] 14.9 % 11.5 - 15.0 % [facility] Hematocrit (Bld) [Volume fraction] 31.8 % Low 39.0 - 51.0 % [facility] Hemoglobin (Bld) [Mass/Vol] 9.6 g/dL Low 13.0 - 17.0 g/dL [facility] Interpretation and review of laboratory results Abnormal [facility] MCH (RBC) [Entitic mass] 30.9 pg 26.0 - 34.0 pg [facility] MCHC (RBC) [Mass/Vol] 30.2 g/dL Low 30.5 - 36.0 g/dL [facility] MCV (RBC) [Entitic vol] 102.3 fL High 80.0 - 100.0 fL [facility] Nucleated RBC (Bld) [#/Vol] NINF [facility] Platelet mean volume (Bld) [Entitic vol] 9.8 fL 9.0 - 12.7 fL [facility] Platelets (Bld) [#/Vol] 158 10*3/uL [facility] RBC (Bld) [#/Vol] 3.11 10*6/uL Low 4.20 - 6.0 0 m/uL [facility] WBC (Bld) [#/Vol] 4.72 10*3/uL [facility] Comprehensive metabolic 2000 panelOrdered By: Haley Marie on 03-25-2024 Albumin [Mass/Vol] 3.7 g/dL Low 3.9 - 4.9 g/dL [facility] ALP [Catalytic activity/Vol] 109 U/L 38 - 113 U/L [facility] ALT [Catalytic activity/Vol] 15 U/L 10 - 54 U/L [facility] Anion gap [Moles/Vol] 12 mmol/L 8 - 15 mmol/L [facility] AST [Catalytic activity/Vol] 19 U/L 14 - 40 U/L [facility] Bilirubin [Mass/Vol] 0.3 mg/dL 0.2 - 1 .3 mg/dL [facility] Calcium [Mass/Vol] 8.6 mg/dL 8.5 - 10. 2 mg/dL [facility] Chloride [Moles/Vol] 113 mmol/L High 98 - 10 7 mmol/L [facility] CO2 [Moles/Vol] 16 mmol/L Low 22 - 30 mmol/L [facility] Creatinine [Mass/Vol] 2.48 mg/dL High 0.73 - 1.22 mg/dL [facility] GFR/1.73 sq M.predicted among non-blacks MDRD (S/P/Bld) [Vol rate/Area] 26 mL/min/{1.73_m2} Low - PINF [facility] Comment on above: Estimated Glomerular Filtration [...] [Mass/Vol] 99 mg/dL 74 - 99 mg/dL [facility] Comment on above: The [place] Diabete s Association (ADA) provides guidance for [...] Standards of Medical Care in Diabetes 2016, [place] Diabetes Association. Diabetes Care. 2016.39(Suppl 1). Interpretation and review of laboratory results Abnormal [facility] Potassium [Moles/Vol] 4.4 mmol/L 3.7 - 5.1 mmol/L [facility] Protein [Mass/Vol] 6.4 g/dL 6.3 - 8.0 g/dL [facility] Sodium [Moles/Vol] 141 mmol/L 136 - 144 mmol/L [facility] Urea nitrogen [Mass/Vol] 49 mg/dL High 9 - 24 mg/dL [facility] ALBUMIN/CREAT RATIO RND URon 08-14-2023 Albumin DL <= 20 mg/L (U) [Mass/Vol] 26.7 mg/L [facility] Albumin/Creatinine (U) [Mass ratio] 27 mg/g <30 mg/g [facility] Creatinine (U) [Mass/Vol] 98.9 mg/dL 20.0 - 300.0 mg/dL [facility] CBC W Auto Differential pane l (Bld)on 08-14-2023 Basophils (Bld) [#/Vol] 0.05 10*3/uL <0.11 k/uL [facility] Basophils/100 WBC (Bld) 0.9 % C [facility] Differential cell count method Nom (Bld) Auto [facility] Eosinophils (Bld) [#/Vol] 0.44 10*3/uL <0.46 k/uL [facility] Eosinophils/100 WBC (Bld) 8.3 % [facility] Erythrocyte distribution width (RBC) [Ratio] 14.5 % 11.5 - 15.0 % [facility] Hematocrit (Bld) [Volume fraction] 38.6 % Low 39.0 - 51.0 % [facility] Hemoglobin (Bld) [Mass/Vol] 11.7 g/dL Low 13.0 - 17.0 g/dL [facility] Immature granulocytes (Bld) [#/Vol] <0.10 k/uL [facility] Immature granulocytes/100 WBC (Bld) 0.4 % [facility] Lymphocytes (Bld) [#/Vol] 1.18 10*3/uL 1.00 - 4.00 k/uL [facility] Lymphocytes/100 WBC (Bld) 22.1 % [facility] MCH (RBC) [Entitic mass] 31.3 pg 26.0 - 34.0 pg [facility] MCHC (RBC) [Mass/Vol] 30.3 g/dL Low 30.5 - 36.0 g/dL [facility] MCV (RBC) [Entitic vol] 103.2 fL High 80.0 - 100.0 fL [facility] Monocytes (Bld) [#/Vol] 0.42 10*3/uL <0.87 k/uL [facility] Monocytes/100 WBC (Bld) 7.9 % [facility] Neutrophils (Bld) [#/Vol] 3.22 10*3/uL 1.45 - 7.50 k/uL [facility] Neutrophils/100 WBC (Bld) 60.4 % [facility] Nucleated RBC (Bld) [#/Vol] <0.01 k/uL [facility] Nucleated RBC/100 WBC (Bld) [Ratio] 0.0 /100 WBC [facility] Platelet mean volume (Bld) [Entitic vol] 10.5 fL 9.0 - 12.7 fL [facility] Platelets (Bld) [#/Vol] 144 10*3/uL Low 150 - 400 k/uL [facility] RBC (Bld) [#/Vol] 3.74 10*6/uL Low 4.20 - 6.0 0 m/uL [facility] WBC (Bld) [#/Vol] 5.33 10*3/uL 3.70 - 11.00 k/uL [facility] Comprehensive metabolic 2000 panelon 08-14-2023 Albumin [Mass/Vol] 4.1 g/dL 3.9 - 4.9 g/dL [facility] ALP [Catalytic activity/Vol] 111 U/L 38 - 113 U/L [facility] ALT [Catalytic activity/Vol] 21 U/L 10 - 54 U/L [facility] Anion gap [Moles/Vol] 11 mmol/L 9 - 18 mmol/L [facility] AST [Catalytic activity/Vol] 26 U/L 14 - 40 U/L [facility] Bilirubin [Mass/Vol] 0.5 mg/dL 0.2 - 1 .3 mg/dL [facility] Calcium [Mass/Vol] 8.8 mg/dL 8.5 - 10. 2 mg/dL [facility] Chloride [Moles/Vol] 106 mmol/L High 97 - 10 5 mmol/L [facility] CO2 [Moles/Vol] 24 mmol/L 22 - 30 mmol/L [facility] Creatinine [Mass/Vol] 2.30 mg/dL High 0.73 - 1.22 mg/dL [facility] Estimated Glomerular Filtration Rate 28 mL/min/1.73m Low >=60 mL/min/1.73 m [facility] Glucose [Mass/Vol] 113 mg/dL High 74 - 99 mg/dL [facility] Potassium [Moles/Vol] 4.6 mmol/L 3.7 - 5.1 mmol/L [facility] Protein [Mass/Vol] 7.0 g/dL 6.3 - 8.0 g/dL [facility] Sodium [Moles/Vol] 141 mmol/L 136 - 144 mmol/L [facility] Urea nitrogen [Mass/Vol] 28 mg/dL High 9 - 24 mg/dL [facility] HbA1c (Bld)on 08-14-2023 Average glucose Estimated from glycated hemoglobin (Bld) [Mass/Vol] 108 mg/dL [facility] HbA1c (Bld) [Mass fraction] 5.4 % 4.3 - 5.6 % [facility] Lipid 1996 panelon Cholesterol [Mass/Vol] 165 mg/dL <200 mg/dL [facility] Cholesterol in HDL [Mass/Vol] 44 mg/dL >39 mg/dL [facility] Cholesterol in LDL [Mass/Vol] 100 mg/dL High <100 mg/dL [facility] Cholesterol in LDL/Cholesterol in HDL [Mass ratio] 2.27 {ratio} <2.54 [facility] Cholesterol in VLDL [Mass/Vol] 21 mg/dL <30 mg/dL [facility] Cholesterol non HDL [Mass/Vol] 121 mg/dL <130 mg/dL [facility] Cholesterol.total/Julia sterol in HDL [Mass ratio] 3.75 {ratio} <5.10 [facility] Fasting Time 14 hrs [facility] Triglyceride [Mass/Vol] 106 mg/dL <150 mg/dL C [facility] INR FINGERSTICK B/Oon 2021 INR Coag (Bld) [Relative time] 1.9 (self reporting) [facility] INR FINGERSTICK B/Oon 2021 INR Coag (Bld) [Relative time] 2.1 biotel [facility] Quality Check No [facility] Vital Signs Date Time Vital Sign Value Performing Clinician Facility 03-07-2025 12:57-0400 Body height 177.[address] Guanakito Reno MD Work Phone: [facility] 03-07-2025 12:57-0400 Body mass index (BMI) [Ratio] 35.9 kg/m2 Dr. Guanakito Reno MD Work Phone: [facility] 03-07-2025 12:57-0400 Body weight 113.[address] Guanakito Reno MD Work Phone: [facility] 01-21-2025 15:33-0400 Body mass index (BMI) [Ratio] 37.02 kg/m2 Carolina Landeros APRN.TELEGRAPHIC TYPEWRITER INSTALLER Work Phone: [facility] 01-21-2025 15:33-0400 Body temperature 97.59 [degF] Carolina Landeros DIRECTOR DIGITAL ADVERTISING.TELEGRAPHIC TYPEWRITER INSTALLER Work Phone: [facility] 01-21-2025 15:33-0400 Body weight 117.03 kg Carolina Landeros APRN.TELEGRAPHIC TYPEWRITER INSTALLER Work Phone: [facility] 01-21-2025 15:33-0400 Diastolic blood pressure 60 mm[Hg] Carolina Suppan DIRECTOR DIGITAL ADVERTISING.TELEGRAPHIC TYPEWRITER INSTALLER Work Phone: [facility] 01-21-2025 15:33-0400 Heart rate 59 /min Carolina Suppan DIRECTOR DIGITAL ADVERTISING.TELEGRAPHIC TYPEWRITER INSTALLER Work Phone: [facility] 01-21-2025 15:33-0400 SaO2% (BldA) [Mass fraction] 97 % Carolina Suppan DIRECTOR DIGITAL ADVERTISING.TELEGRAPHIC TYPEWRITER INSTALLER Work Phone: [facility] 01-21-2025 15:33-0400 Systolic blood pressure 122 mm[Hg] Carolina Suppan DIRECTOR DIGITAL ADVERTISING.TELEGRAPHIC TYPEWRITER INSTALLER Work Phone: [facility] 08-06-2024 12:57-0400 Body height 177.8 cm Laura Iraheta MD Work Phone: [facility] Comment on above: patient reports 08-06-2024 12:57-0400 Body mass index (BMI) [Ratio] 34.44 kg/m2 Laura Iraheta MD Work Phone: [facility] 08-06-2024 12:57-0400 Body weight 108.86 kg Laura Iraheta MD Work Phone: [facility] 08-06-2024 12:57-0400 Diastolic blood pressure 68 mm[Hg] Laura Iraheta MD Work Phone: [facility] 08-06-2024 12:57-0400 Heart rate 61 /min Laura Iraheta MD Work Phone: [facility] 08-06-2024 12:57-0400 SaO2% (BldA) [Mass fraction] 99 % Laura Iraheta MD Work Phone: [facility] 08-06-2024 12:57-0400 Systolic blood pressure 128 mm[Hg] Laura Iraheta MD Work Phone: [facility] 07-12-2024 11:22-0400 Body height 177.8 cm Guanakito Reno MD Work Phone: [facility] 07-12-2024 11:22-0400 Body mass index (BMI) [Ratio] 34.55 kg/m2 Guanakito Reno MD Work Phone: [facility] 07-12-2024 11:22-0400 Body weight 109.23 kg Guanakito Reno MD Work Phone: [facility] 07-12-2024 11:22-0400 Diastolic blood pressure 62 mm[Hg] Guanakito Reno MD Work Phone: [facility] 07-12-2024 11:22-0400 Heart rate 59 /min Guanakito Reno MD Work Phone: [facility] 07-12-2024 11:22-0400 Systolic blood pressure 114 mm[Hg] Guanakito Reno MD Work Phone: [facility] 07-10-2024 08:11-0400 Body height 177.8 cm Cal Mondragon MD Work Phone: [facility] Comment on above: Patient reports 07-10-2024 08:11-0400 Body mass index (BMI) [Ratio] 34.49 kg/m2 Cal Mondragon MD Work Phone: [facility] 07-10-2024 08:11-0400 Body weight 109.05 kg Cal Mondragon MD Work Phone: [facility] 07-10-2024 08:11-0400 Diastolic blood pressure 70 mm[Hg] Cal Mondragon MD Work Phone: [facility] 07-10-2024 08:11-0400 Heart rate 94 /min Cal Mondragon MD Work Phone: [facility] 07-10-2024 08:11-0400 SaO2% (BldA) [Mass fraction] 94 % Cal Mondragon MD Work Phone: [facility] 07-10-2024 08:11-0400 Systolic blood pressure 120 mm[Hg] Cal Mondragon MD Work Phone: [facility] 07-10-2024 08:08-0400 Body height 177.8 cm Pam Reddy MD Work Phone: [facility] Comment on above: Patient reports 07-10-2024 08:08-0400 Body mass index (BMI) [Ratio] 34.49 kg/m2 Pam Reddy MD Work Phone: [facility] 07-10-2024 08:08-0400 Body weight 109.05 kg Pam Reddy MD Work Phone: [facility] Comment on above: Fully clothed with shoes on. 07-10-2024 08:08-0400 Diastolic blood pressure 70 mm[Hg] Pam Reddy MD Work Phone: [facility] 07-10-2024 08:08-0400 Heart rate 94 /min Pam Reddy MD Work Phone: [facility] 07-10-2024 08:08-0400 SaO2% (BldA) [Mass fraction] 94 % Pam Reddy MD Work Phone: [facility] 07-10-2024 08:08-0400 Systolic blood pressure 120 mm[Hg] Pam Reddy MD Work Phone: [facility] 06-06-2024 11:31-0400 Body mass index (BMI) [Ratio] 36.03 kg/m2 Carolina Suppan DIRECTOR DIGITAL ADVERTISING.TELEGRAPHIC TYPEWRITER INSTALLER Work Phone: [facility] 06-06-2024 11:31-0400 Body weight 110.68 kg Carolina Suppan DIRECTOR DIGITAL ADVERTISING.TELEGRAPHIC TYPEWRITER INSTALLER Work Phone: [facility] 06-06-2024 11:31-0400 Diastolic blood pressure 68 mm[Hg] Carolina Suppan DIRECTOR DIGITAL ADVERTISING.TELEGRAPHIC TYPEWRITER INSTALLER Work Phone: [facility] 06-06-2024 11:31-0400 Heart rate 71 /min Carolina Suppan DIRECTOR DIGITAL ADVERTISING.TELEGRAPHIC TYPEWRITER INSTALLER Work Phone: [facility] 06-06-2024 11:31-0400 Respiratory rate 18 /min Carolina Suppan DIRECTOR DIGITAL ADVERTISING.TELEGRAPHIC TYPEWRITER INSTALLER Work Phone: [facility] 06-06-2024 11:31-0400 SaO2% (BldA) [Mass fraction] 99 % Carolina Suppan DIRECTOR DIGITAL ADVERTISING.TELEGRAPHIC TYPEWRITER INSTALLER Work Phone: [facility] 06-06-2024 11:31-0400 Systolic blood pressure 144 mm[Hg] Carolina Landeros DIRECTOR DIGITAL ADVERTISING.TELEGRAPHIC TYPEWRITER INSTALLER Work Phone: [facility] 06-05-2024 16:41-0400 Body mass index (BMI) [Ratio] 36.04 kg/m2 Valerie Connelly DIRECTOR DIGITAL ADVERTISING.TELEGRAPHIC TYPEWRITER INSTALLER Work Phone: [facility] 06-05-2024 16:41-0400 Body temperature 96.6 [degF] Valerie Connelly DIRECTOR DIGITAL ADVERTISING.TELEGRAPHIC TYPEWRITER INSTALLER Work Phone: [facility] 06-05-2024 16:41-0400 Body weight 110.7 kg Valerie Connelly DIRECTOR DIGITAL ADVERTISING.TELEGRAPHIC TYPEWRITER INSTALLER Work Phone: [facility] 06-05-2024 16:41-0400 Diastolic blood pressure 70 mm[Hg] Valerie Connelly DIRECTOR DIGITAL ADVERTISING.TELEGRAPHIC TYPEWRITER INSTALLER Work Phone: [facility] 06-05-2024 16:41-0400 Heart rate 75 /min Valerie Connelly DIRECTOR DIGITAL ADVERTISING.TELEGRAPHIC TYPEWRITER INSTALLER Work Phone: [facility] 06-05-2024 16:41-0400 Respiratory rate 19 /min Valerie Connelly DIRECTOR DIGITAL ADVERTISING.TELEGRAPHIC TYPEWRITER INSTALLER Work Phone: [facility] 06-05-2024 16:41-0400 SaO2% (BldA) [Mass fraction] 97 % Valerie Connelly DIRECTOR DIGITAL ADVERTISING.TELEGRAPHIC TYPEWRITER INSTALLER Work Phone: [facility] 06-05-2024 16:41-0400 Systolic blood pressure 140 mm[Hg] Valerie Connelly DIRECTOR DIGITAL ADVERTISING.TELEGRAPHIC TYPEWRITER INSTALLER Work Phone: [facility] 05-06-2024 17:38-0400 Body height 175.3 cm Corrina Lennon DIRECTOR DIGITAL ADVERTISING.TELEGRAPHIC TYPEWRITER INSTALLER Work Phone: [facility] 05-06-2024 17:38-0400 Body mass index (BMI) [Ratio] 37.95 kg/m2 Corrina Lennon DIRECTOR DIGITAL ADVERTISING.TELEGRAPHIC TYPEWRITER INSTALLER Work Phone: [facility] 05-06-2024 17:38-0400 Body weight 116.57 kg Corrina Haagen DIRECTOR DIGITAL ADVERTISING.TELEGRAPHIC TYPEWRITER INSTALLER Work Phone: [facility] 05-06-2024 17:38-0400 Diastolic blood pressure 58 mm[Hg] Corrina Haagen DIRECTOR DIGITAL ADVERTISING.TELEGRAPHIC TYPEWRITER INSTALLER Work Phone: [facility] 05-06-2024 17:38-0400 Heart rate 62 /min Corrina Haagen DIRECTOR DIGITAL ADVERTISING.TELEGRAPHIC TYPEWRITER INSTALLER Work Phone: [facility] 05-06-2024 17:38-0400 Respiratory rate 14 /min Corrina Haagen DIRECTOR DIGITAL ADVERTISING.TELEGRAPHIC TYPEWRITER INSTALLER Work Phone: [facility] 05-06-2024 17:38-0400 SaO2% (BldA) [Mass fraction] 89 % Corrina Haagen DIRECTOR DIGITAL ADVERTISING.TELEGRAPHIC TYPEWRITER INSTALLER Work Phone: [facility] 05-06-2024 17:38-0400 Systolic blood pressure 122 mm[Hg] Corirna Haagen DIRECTOR DIGITAL ADVERTISING.TELEGRAPHIC TYPEWRITER INSTALLER Work Phone: [facility] 04-08-2024 15:17-0400 Body mass index (BMI) [Ratio] 37.63 kg/m2 Corrina Haagen DIRECTOR DIGITAL ADVERTISING.TELEGRAPHIC TYPEWRITER INSTALLER Work Phone: [facility] 04-08-2024 15:17-0400 Body weight 115.58 kg Corrina Haagen DIRECTOR DIGITAL ADVERTISING.TELEGRAPHIC TYPEWRITER INSTALLER Work Phone: [facility] 04-08-2024 14:55-0400 Diastolic blood pressure 58 mm[Hg] Corrina Haagen DIRECTOR DIGITAL ADVERTISING.TELEGRAPHIC TYPEWRITER INSTALLER Work Phone: [facility] 04-08-2024 14:55-0400 Heart rate 72 /min Corrina Haagen DIRECTOR DIGITAL ADVERTISING.TELEGRAPHIC TYPEWRITER INSTALLER Work Phone: [facility] 04-08-2024 14:55-0400 Respiratory rate 16 /min Corrina Haagen DIRECTOR DIGITAL ADVERTISING.TELEGRAPHIC TYPEWRITER INSTALLER Work Phone: [facility] 04-08-2024 14:55-0400 Systolic blood pressure 102 mm[Hg] Corrina Haagen DIRECTOR DIGITAL ADVERTISING.TELEGRAPHIC TYPEWRITER INSTALLER Work Phone: [facility] 03-26-2024 16:33-0400 Body height 175.3 cm Guanakito Reno MD Work Phone: [facility] 03-26-2024 16:33-0400 Body mass index (BMI) [Ratio] 37.07 kg/m2 Guanakito Reno MD Work Phone: [facility] 03-26-2024 16:33-0400 Body weight 113.85 kg Guanakito Reno MD Work Phone: [facility] 03-26-2024 16:33-0400 Diastolic blood pressure 46 mm[Hg] Guanakito Reno MD Work Phone: [facility] 03-26-2024 16:33-0400 Heart rate 86 /min Guanakito Reno MD Work Phone: [facility] 03-26-2024 16:33-0400 SaO2% (BldA) [Mass fraction] 98 % Guanakito Reno MD Work Phone: [facility] 03-26-2024 16:33-0400 Systolic blood pressure 98 mm[Hg] Guanakito Reno MD Work Phone: [facility] 03-25-2024 14:52-0400 Body mass index (BMI) [Ratio] 37.21 kg/m2 Pam Reddy MD Work Phone: [facility] 03-25-2024 14:52-0400 Body weight 114.31 kg Pam Reddy MD Work Phone: [facility] 03-25-2024 14:52-0400 Diastolic blood pressure 69 mm[Hg] Pam Reddy MD Work Phone: [facility] 03-25-2024 14:52-0400 Heart rate 66 /min Pam Reddy MD Work Phone: [facility] 03-25-2024 14:52-0400 SaO2% (BldA) [Mass fraction] 96 % Pam Reddy MD Work Phone: [facility] 03-25-2024 14:52-0400 Systolic blood pressure 116 mm[Hg] Pam Reddy MD Work Phone: [facility] 12-22-2023 14:55-0500 Body temperature 97.81 [degF] Carolina Suppan DIRECTOR DIGITAL ADVERTISING.CUSTOMS IMPORT SPECIALIST Work Phone: [facility] 12-22-2023 14:55-0500 Diastolic blood pressure 60 mm[Hg] Carolina Suppan DIRECTOR DIGITAL ADVERTISING.CUSTOMS IMPORT SPECIALIST Work Phone: [facility] 12-22-2023 14:55-0500 Heart rate 76 /min Carolina Suppan DIRECTOR DIGITAL ADVERTISING.CUSTOMS IMPORT SPECIALIST Work Phone: [facility] 12-22-2023 14:55-0500 Respiratory rate 18 /min Carolina Suppan DIRECTOR DIGITAL ADVERTISING.CUSTOMS IMPORT SPECIALIST Work Phone: [facility] 12-22-2023 14:55-0500 SaO2% (BldA) [Mass fraction] 99 % Carolina Suppan DIRECTOR DIGITAL ADVERTISING.CUSTOMS IMPORT SPECIALIST Work Phone: [facility] 12-22-2023 14:55-0500 Systolic blood pressure 122 mm[Hg] Carolina Suppan DIRECTOR DIGITAL ADVERTISING.CUSTOMS IMPORT SPECIALIST Work Phone: [facility] 08-14-2023 13:24-0400 Body height 175.3 cm Guanakito Reno MD Work Phone: [facility] 08-14-2023 13:24-0400 Body weight 120.75 kg Guanakito Reno MD Work Phone: [facility] 08-14-2023 13:24-0400 Diastolic blood pressure 68 mm[Hg] Guanakito Reno MD Work Phone: [facility] 08-14-2023 13:24-0400 Heart rate 59 /min Guanakito Reno MD Work Phone: [facility] 08-14-2023 13:24-0400 SaO2% (BldA) [Mass fraction] 99 % Guanakito Reno MD Work Phone: [facility] 08-14-2023 13:24-0400 Systolic blood pressure 120 mm[Hg] Guanakito Reno MD Work Phone: [facility] 02-13-2023 14:39-0400 Body weight 119.75 kg Pam Reddy MD Work Phone: [facility] 02-13-2023 14:39-0400 Diastolic blood pressure 60 mm[Hg] Pam Reddy MD Work Phone: [facility] 02-13-2023 14:39-0400 Heart rate 78 /min Pam Reddy MD Work Phone: [facility] 02-13-2023 14:39-0400 SaO2% (BldA) [Mass fraction] 96 % Pam Reddy MD Work Phone: [facility] 02-13-2023 14:39-0400 Systolic blood pressure 110 mm[Hg] Pam Reddy MD Work Phone: [facility] 02-06-2023 15:29-0400 Body weight 118.39 kg Guanakito Reno MD Work Phone: [facility] 02-06-2023 15:29-0400 Diastolic blood pressure 58 mm[Hg] Guanakito Reno MD Work Phone: [facility] 02-06-2023 15:29-0400 Heart rate 76 /min Guanakito Reno MD Work Phone: [facility] 02-06-2023 15:29-0400 Respiratory rate 16 /min Guanakito Reno MD Work Phone: [facility] 02-06-2023 15:29-0400 SaO2% (BldA) [Mass fraction] 94 % Guanakito Reno MD Work Phone: [facility] 02-06-2023 15:29-0400 Systolic blood pressure 122 mm[Hg] Guanakito Reno MD Work Phone: [facility] 10-04-2022 10:38-0500 Body height 175.3 cm Alondra Prescott DO Work Phone: [facility] 10-04-2022 10:38-0500 Body weight 117.03 kg Alondra Prescott DO Work Phone: [facility] 10-04-2022 10:38-0500 Diastolic blood pressure 66 mm[Hg] Alondra Prescott DO Work Phone: [facility] 10-04-2022 10:38-0500 Heart rate 57 /min Alondra Prescott DO Work Phone: [facility] 10-04-2022 10:38-0500 SaO2% (BldA) [Mass fraction] 100 % Alondra Prescott DO Work Phone: [facility] 10-04-2022 10:38-0500 Systolic blood pressure 122 mm[Hg] Alondra Prescott DO Work Phone: [facility] 08-15-2022 14:50-0400 Body height 175.3 cm Pam Reddy MD Work Phone: [facility] 08-15-2022 14:50-0400 Body weight 119.3 kg Pam Reddy MD Work Phone: [facility] 08-15-2022 14:50-0400 Diastolic blood pressure 62 mm[Hg] Pam Reddy MD Work Phone: [facility] 08-15-2022 14:50-0400 Heart rate 58 /min Pam Reddy MD Work Phone: [facility] 08-15-2022 14:50-0400 Respiratory rate 18 /min Pam Reddy MD Work Phone: [facility] 08-15-2022 14:50-0400 SaO2% (BldA) [Mass fraction] 98 % Pam Reddy MD Work Phone: [facility] 08-15-2022 14:50-0400 Systolic blood pressure 114 mm[Hg] Pam Reddy MD Work Phone: [facility] 01-19-2022 15:14-0400 Body weight 121.11 kg Guanakito Reno MD Work Phone: [facility] 01-19-2022 15:14-0400 Diastolic blood pressure 68 mm[Hg] Guanakito Reno MD Work Phone: [facility] 01-19-2022 [id number] Heart rate 60 /min Guanakito Reno MD Work Phone: [facility] 01-19-2022 [id number] Systolic blood pressure 124 mm[Hg] Guanakito Reno MD Work Phone: [facility] Encounters Encounter Date Encounter Type Care Provider Facility Start: 07-31-2025 ambulatory Josafat ORTEZ Facil ity:[facility] Start: 07-17-2025 ambulatory Josafat ORTEZ Facil ity:[facility] Start: 07-08-2025 [facility]ulatory [facility] Start: 06-24-2025 ambulatory Josafat Simon OLS Facil ity:[facility] Start: 06-17-2025 ambulatory Josafat ORTEZ Facil ity:[facility] Start: 06-12-2025 ambulatory [facility] Start: 06-10-2025 ambulatory [facility] Start: 06-03-2025 ambulatory [facility] Start: 06-03-[address] Josafat juarez MD [facility] Start: 05-27-2025 ambulatory Josafat ORTEZ Facil ity:[facility] Start: 05-27-[address] Josafat juarez MD -[facility] Start: 05-20-2025 End: 05-20-[address] Guanakito Reno MD Work Phone: -[facility] Start: 05-20-2025 End: 05-20-[address] Josafat Simon MD -[facility] Start: 05-20-2025 End: 05-20-2025 ambulatory Josafat ORTEZ Facility:[facility] Start: 05-15-2025 ambulatory Josafat ORTEZ Facil ity:[facility] Start: 05-15-[address] Josafat juarez MD -[facility] Start: 05-13-2025 ambulatory Josafat ORTEZ Facil ity:[facility] Start: 05-13-[address] Josafat juarez MD -[facility] Start: 05-08-2025 ambulatory Josafat Simon OLS Facil ity:[facility] Start: 05-08-[address] Josafat juarez MD [facility] Start: 05-06-2025 ambulatory Josafat Simon OLS Facil ity:[facility] Start: 05-06-[address] Josafat juarez MD -[facility] Start: 05-02-2025 End: 05-02-[address] Burt Zamora MD -[facility] Start: 05-02-2025 End: 05-02-[address] Guanakito Reno MD Work Phone: -[facility] Start: 05-01-2025 ambulatory Josafat Simon OLS Facil ity:[facility] Start: 05-01-[address] Josafat juarez MD -[facility] Start: 04-29-2025 ambulatory Josafat ORTEZ Facil ity:[facility] Start: 04-29-[address] Josafat juarez MD [facility] Start: 04-24-2025 ambulatory Josafat ORTEZ Facil ity:[facility] Start: 04-24-[address] Josafat juarez MD [facility] Start: 04-17-2025 ambulatory Bianka Contrerasi ty:[facility] Start: 04-17-[address] Bianka Gonzalez MD -[facility] Start: 04-15-2025 End: 04-15-2025 Telephone encounter Twin Cole formerly [facility] Comment on above: Anticoagulation Tele phone Fu (Home INR result) Start: 04-14-2025 End: 04-14-2025 Telephone encounter Guanakito Reno MD Work Phone: [facility] [place] Comment on above: Patient Question Start: 04-14-2025 ambulatory Josafat García Facility :[facility] Start: 04-14-[address] Josafat García MD -Physical Therapy Work Phone: Start: 04-08-2025 End: 04-08-2025 Refill Carolina Landeros DIRECTOR DIGITAL ADVERTISING.TELEGRAPHIC TYPEWRITER INSTALLER Work Phone: [facility] Comment on above: Refill Request Start: 03-28-2025 End: 03-28-2025 Telephone encounter Guanakito Reno MD Work Phone: [facility] [place] Comment on above: Faxed to Pepe Castellon Start: 03-24-2025 End: 03-24-2025 Telephone encounter Alejandro Molina formerly [facility] Comment on above: Anticoagulation Tele phone Fu (Home INR Result ) Start: 03-07-2025 End: 03-07-[address] Josafat García MD -[facility] Work Phone: Start: 03-07-2025 End: 03-07-2025 ambulatory Josafat García [place] Start: 03-06-2025 End: 03-06-2025 ambulatory CAROLINA LANDEROS Facility:[facility] Start: 03-05-2025 End: 03-06-2025 Emergency department patient visit KEDAR HERNANDEZ Facility:[facility] Start: 02-20-2025 End: 02-20-2025 Telephone encounter Jimmy Carrizales formerly [facility] Comment on above: Anticoagulation Tele phone Fu (Home INR) Start: 01-31-2025 End: 01-31-2025 Telephone encounter Kamran Ayon formerly [facility] Comment on above: Anticoagulation Tele phone Fu (INR Home Test Result) Start: 01-23-2025 End: 03-25-2025 Follow-up encounter Carolina Landeros APRN.TELEGRAPHIC TYPEWRITER INSTALLER Work Phone: [facility] Start: 01-21-2025 End: 01-21-2025 ambulatory CAROLINA SUPPJEREMY Facility:[facility] Start: 01-21-2025 End: 01-21-2025 Office outpatient visit 25 minutes Carolina Landeros DIRECTOR DIGITAL ADVERTISING.TELEGRAPHIC TYPEWRITER INSTALLER Work Phone: 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 Comment on above: Refill Request Start: 12-30-2024 End: 12-30-2024 Telephone encounter Twin Cole formerly [facility] Comment on above: Anticoagulation Tele phone Fu (Home INR result) Start: 12-11-2024 End: 12-11-2024 Telephone encounter Jimmy Carrizales formerly [facility] Comment on above: Anticoagulation Tele phone Fu (Home INR) Start: 11-26-2024 End: 11-26-2024 Telephone encounter Twin Cole formerly [facility] Comment on above: Anticoagulation Tele phone Fu (Home INR result) Start: 10-28-2024 End: 10-28-2024 Telephone encounter Alejandro Molina formerly [facility] Comment on above: Anticoagulation Tele phone Fu (Home INR Result ) Start: 10-21-2024 End: 10-21-2024 Telephone encounter Guanakito Reno MD Work Phone: [facility] Comment on above: Patient Update; Rozina ent Question Start: 10-01-2024 End: 10-01-2024 Telephone encounter Twin Cole formerly [facility] Comment on above: Anticoagulation Tele phone Fu (Home INR result) Start: 08-26-2024 End: 08-26-2024 Telephone encounter Alejandro Molina formerly [facility] Comment on above: Anticoagulation Tele phone Fu (Home INR Result ) Start: 08-19-2024 End: 08-19-2024 ambulatory Melania Galindo powder cutting [employer] Comment on above: QI SMITH RN ( Medication Adherence Review per Request of Payor ) Start: 08-16-2024 End: 08-16-2024 Telephone encounter Jimmy GARDUNO [facility] Start: 08-07-2024 End: 08-07-2024 ambulatory [facility] Facility:[facility] Start: 08-06-2024 End: 08-06-2024 Office outpatient new 45 minutes Laura Iraheta MD Work Phone: [facility] Comment on above: Bilateral carotid ar jeanne stenosis (Primary Dx); History of carotid endarterectomy Start: 07-30-2024 End: 07-30-2024 ambulatory Josselyn Mayer APRN.TELEGRAPHIC TYPEWRITER INSTALLER Work Phone: [facility] Cardiology [place] Start: 07-30-2024 End: 08-01-2024 Telephone encounter Josselyn Mayer APRN.TELEGRAPHIC TYPEWRITER INSTALLER Work Phone: [facility] Cardiology [place] Comment on above: Bobbin Cleaner Hand - O ther Start: 07-25-2024 End: 07-26-2024 Telephone encounter Jimmy Carrizales formerly [facility] Ambulatory Telemanagement Comment on above: Anticoagulation (Pat ient update) Start: 07-23-2024 End: 07-23-[address] [facility] Start: 07-23-2024 End: 07-23-2024 Subsequent hospital visit by physician [facility] [place] [facility] 1 (I-Stat) RADIO CT SCAN [facility] Comment on above: Nonrheumatic aortic valve stenosis [I35.0] Start: 07-15-2024 End: 07-15-2024 Orders Only Valerie Brito DIRECTOR DIGITAL ADVERTISING.TELEGRAPHIC TYPEWRITER INSTALLER Work Phone: [facility] Comment on above: Paroxysmal atrial fi brillation (HCC) (Primary Dx); Aortic valve stenosis, etiology of cardiac valve disease unspecified Nonrheumatic aortic valve stenosis (Primary Dx); Paroxysmal atrial fibrillation (HCC) Patient Update Results Start: 07-12-2024 End: 07-12-2024 Telephone encounter Guanakito Reno MD Work Phone: Internal Medicine [place] Start: 07-12-2024 End: 07-15-2024 Patient encounter procedure [...] disease, stage IV (HCC); Mixed dementia (HCC); 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; Need for vaccination Essential hypertensi on (Primary Dx) Start: 07-10-2024 End: 07-10-2024 Subsequent hospital visit by physician Ekg/Holter/Event Monitor [place] [facility] Comment on above: Nonrheumatic aortic valve stenosis [I35.0] Start: 07-10-2024 End: 07-10-2024 Patient encounter procedure Cal Mondragon MD Work Phone: [facility] Comment on [...] encounter status Pam Reddy MD Work Phone: [facility] Work Phone: Start: 07-05-2024 End: 07-05-2024 Telephone encounter Annamarie Garcia formerly [facility] Comment on above: Anticoagulation Tele phone Fu Start: 2024 End: 2024 Telephone encounter Guanakito Reno MD Work Phone: Pulmonology [facility] Start: 06-18-2024 End: 06-18-2024 Telephone encounter Jimmy Carrizales formerly [facility] Ambulatory Telemanagement Comment on above: Anticoagulation Tele phone Fu (Home INR) Start: 06-06-2024 End: 06-06-2024 Office outpatient visit 15 minutes Carolina Landeros DIRECTOR DIGITAL ADVERTISING.TELEGRAPHIC TYPEWRITER INSTALLER Work Phone: [facility] [place] Comment on above: Aortic valve stenosi s, etiology of cardiac valve disease unspecified (Primary Dx); Hypertensive kidney disease with stage 3b chronic kidney disease (HCC); Paroxysmal atrial fibrillation (HCC); Benign prostatic hyperplasia without lower urinary tract symptoms; Anemia, unspecified type Start: 06-05-2024 End: 06-05-2024 Patient encounter procedure Valerie Connelly APRN.TELEGRAPHIC TYPEWRITER INSTALLER Work Phone: [facility] Comment on above: Blood pressure check (Primary Dx); Leg swelling Start: 06-05-2024 End: 06-05-2024 Patient encounter status Valerie Connelly APRN.TELEGRAPHIC TYPEWRITER INSTALLER Work Phone: [facility] Work Phone: Start: 06-03-2024 End: 06-05-2024 ambulatory Guanakito Reno MD Work Phone: [facility] [place] Comment on above: Water pill/ kidney d r # Start: 05-20-2024 Telephone encounter Josselyn Mayer APRN.TELEGRAPHIC TYPEWRITER INSTALLER Work Phone: [facility] Cardiology [place] Comment on above: Bobbin Cleaner Hand - O ther Results Start: 05-17-2024 Telephone encounter Dorothy Joshua formerly [facility] Comment on above: Anticoagulation Tele phone Fu Start: 05-06-2024 End: 05-06-2024 Office outpatient visit 15 minutes Corrina Lennon APRN.TELEGRAPHIC TYPEWRITER INSTALLER Work Phone: [facility] [place] Comment on above: Essential hypertensi on (Primary Dx); Hypertensive kidney disease with stage 3 chronic kidney disease, unspecified whether stage 3a or 3b CKD (HCC); Anemia, unspecified type Start: 05-02-2024 End: 05-02-2024 Subsequent hospital visit by physician [facility] Work Phone: Radiology Comment on above: Renal insufficiency [N28.9] Start: 04-24-2024 Telephone encounter [facility] Tele[facility] Comment on above: Anticoagulation Tele phone Fu (Home INR) Start: 04-19-2024 Telephone encounter Guanakito Reno MD Work Phone: [facility] [place] Comment on above: Results Start: 04-08-2024 End: 04-08-2024 Office outpatient visit 25 minutes Corrina Lennon APRN.CNP Work Phone: Family Medicine [place] Comment on above: Essential hypertensi on (Primary [...] Results Start: 04-04-2024 Telephone encounter Jimmy Carrizales formerly [facility] Ambulatory Telemanagement Comment on above: Anticoagulation Tele phone Fu (Home INR) Start: 03-26-2024 End: 03-26-2024 Patient encounter procedure Guanakito Reno MD Work Phone: [facility] [place] Comment on above: Essential hypertensi on (Primary [...] or 3b CKD (HCC); Mixed dementia (HCC); intermediate (current) use of anticoagulants; Obesity, Class II, [...] payor) Start: 03-07-2024 Telephone encounter Jimmy Carrizales formerly [facility] Ambulatory Telemanagement Comment on above: Anticoagulation Tele phone Fu Start: 02-14-2024 Telephone encounter [facility] Tele[facility] Comment on above: Anticoagulation Tele phone Fu (Home INR results ) Start: 01-17-2024 Refill Guanakito Reno MD Work Phone: [facility] Comment on above: Refill Request requesting medicatio n on list Start: 01-15-2024 Telephone encounter [facility] Amb[facility] Telemanagement Comment on above: Anticoagulation Tele phone Fu (Home INR Result ) Start: 12-22-2023 End: 12-22-2023 Office outpatient visit 15 minutes Carolina Landeros APRN.CUSTOMS IMPORT SPECIALIST Work Phone: [facility] [place] Comment on above: Abrasion of arm, lef t, initial encounter (Primary Dx); Chronic insomnia Start: 12-21-2023 ambulatory Guanakito Reno MD Work Phone: [facility] Comment on above: skin laceration Start: 12-21-2023 Telephone encounter Jimmy Carrizales formerly [facility] Ambulatory Telemanagement Comment on above: [...] bulatory Care Management Comment on above: QI LUIS RN ( Medication Adherence review per request of payer) Start: 08-22-2023 Telephone encounter Twin Kelsey [facility] Comment on above: Anticoagulation Tele phone Fu (Home INR result) Start: 08-16-2023 Telephone encounter Guanakito Reno MD Work Phone: [facility] [place] Comment on above: Results Start: 08-15-2023 Telephone encounter Guanakito Reno MD Work Phone: [facility] [place] Comment on above: Results Start: 08-14-2023 End: 08-14-2023 Patient encounter procedure Guanakito Reno MD Work Phone: [facility] [place] Comment on above: Onychomycosis (Prima ry Dx); [...] Refill Guanakito Reno MD Work Phone: [facility] [place] Comment on above: Refill Request Start: 2023 ambulatory Lizette Cardenas RN [facility] [place] Comment on above: QI LUIS RN ( Medication Adherence review per request of payer) Start: 05-22-2023 Telephone encounter [facility] Tele[facility] Comment on above: Anticoagulation Tele phone Fu (Home INR Result ) Start: 04-24-2023 Telephone encounter [facility] Tele[facility] Comment on above: Anticoagulation Tele phone Fu (Home INR Result ) Start: 04-19-2023 Refill Guanakito Reno MD Work Phone: [facility] Comment on above: Refill Request Start: 03-28-2023 Telephone encounter Twin Kelsey [facility] Comment on above: Anticoagulation Tele phone Fu (Home INR result) Start: 02-13-2023 End: 02-13-2023 Patient encounter procedure Pam Reddy MD Work Phone: Cardiology Comment on above: Syncope, unspecified syncope type (Primary Dx); Aortic valve disorder Start: 02-06-2023 End: 02-06-2023 Patient encounter procedure Guanakito Reno MD Work Phone: [facility] Comment on above: Essential hypertensi on [...] 01-16-2023 Refill Guanakito Reno MD Work Phone: [facility] Comment on above: Refill Request Start: [...] ) Start: 11-18-2022 Telephone encounter [facility] Comment on above: Anticoagulation Tele phone Fu Start: 01-20-2023 Telephone encounter Kamran Ayon [facility] Comment on above: Anticoagulation Tele phone Fu (INR Home Test Result) Start: 11-01-2022 Telephone encounter Twin Vinicionicole [facility] Comment on above: [...] Refill Guanakito Reno MD Work Phone: [facility] [place] Comment on above: Orders; Refill Reque st Start: 09-21-2022 Telephone encounter [facility] Ambulatory Telemanagement Comment on above: Anticoagulation Tele phone Fu (Home INR result expected) Start: 09-07-2022 ambulatory Lizette Cardenas RN [facility] Comment on above: QI SMITH RN ( Medication Adherence review at request of payer) Start: 08-22-2022 Telephone encounter [facility] Comment on above: Anticoagulation (INR result) Start: 08-15-2022 End: 08-15-2022 Patient encounter procedure Pam Reddy MD Work Phone: Cardiology Comment on above: Obesity, Class II, B [place] 35-39.9 (Primary Dx); Paroxysmal atrial fibrillation (HCC); Nonrheumatic aortic valve stenosis; Aortic valve disorder Start: 08-01-2022 Telephone encounter [facility] Comment on above: Anticoagulation Tele phone Fu (Home INR Result) Start: 07-22-2022 Refill Guanakito Reno MD Work Phone: [facility] [place] Comment on above: Refill Request Start: 2022 Telephone encounter [facility] Telemanagement Comment on above: Anticoagulation (INR result ) Start: 06-14-2022 ambulatory Nirmala Lim MA [facility] [place] Comment on above: Population Health Na vigation Outreach ([facility] care gaps) Start: 06-06-2022 Telephone encounter [facility] Tele[facility] Comment on above: Anticoagulation (Gabrielle e INR) Start: 05-19-2022 Refill Guanakito Reno MD Work Phone: [facility] [place] Comment on above: Refill Request Start: 05-16-2022 Telephone encounter [facility] Telemanagement Comment on above: Anticoagulation Tele phone Fu (Home INR Result) Start: 04-25-2022 Telephone encounter Val Benito [facility] Comment on above: Anticoagulation [...] ) Start: 02-17-2022 Telephone encounter Jazmyn Garcia [facility] Ambulatory Telemanagement Comment on above: Anticoagulation Tele phone Fu Start: 02-08-2022 Telephone encounter Twin Cole [facility] Comment on above: Anticoagulation Tele phone Fu (Home INR result) Start: 01-25-2022 Telephone encounter Twin [facility] Ambulatory Telemanagement Comment on above: Anticoagulation Tele phone Fu (Home INR result) Start: 01-19-2022 End: 01-19-2022 Patient encounter procedure Guanakito Reno MD Work Phone: [facility] [place] Comment on above: Essential hypertensi [...] Anticoagulation Tele phone Fu Start: 06-07-2018 Ambulatory [facility] Facility :[facility] Start: 11-24-2017 End: 11-24-2017 Ambulatory [facility] Facility:[facility] Procedures Date Procedure Procedure Detail Performing Clinician Start: 05-02-2025 Plain X-ray of shoulder Dr. Guanakito Reno MD Work Phone: Start: 07-12-2024 PFIZER-BIONTECH COVI D-19 VACCINE AGE 12+ YR (COMIRNATY) Guanakito Reno MD Work Phone: Start: 07-10-2024 Ecg routine ecg w/le ast 12 lds w/i&r Neelamd Javid Reddy MD Work Phone: Start: 05-02-2024 Us [...] Velasquez with bovine patch angioplasty, 04/17/2014 @ [facility] History of carotid endarterectomy History of carotid endarterectomy Guanakito Reno MD Work Phone: History of carotid endarterectomy History of carotid endarterectomy Laura Iraheta MD Work Phone: Plan of Treatment Date Care Activity Detail Author Start: 04-22-2031 Urine microalbumin profile [facility] Start: 01-21-2026 Diabetic foot examination Diabetic Foot Exam [facility] Start: 01-21-2026 Hepatitis B surface antibody level LDL Cholesterol [facility] Start: 08-06-2025 End: 09-05-2025 US Carotid arteries - bilateral US CAROTID BILATERAL Radiology Routine Bilateral carotid artery stenosis History of carotid endarterectomy Expected: 08/06/2025 (Approximate), Expires: 09/05/2025 [facility] Work Phone: Comment on above: Expected: 08/06/2025 (Approximate), Expi res: 09/05/2025 Start: 07-23-2025 End: 07-23-2025 Patient encounter procedure 07/23/2025 3:20 PM EDT Office Visit [facility] [place] [address] [place] [address] Guanakito Reno MD [address] [place], [place] [id number] 6 month exam [facility] [place] Comment on above: 6 month exam Start: 07-23-2025 Hemoglobin A1c measurement HbA1C [facility] Start: 07-12-2025 Covid-19 Vaccine ( season) Covid-19 Vaccine ( season) [facility] Comment on above: Postponed from 01/09/2025 (Declined at t his time) Start: 07-12-2025 Hepatitis B surface antibody level LDL Cholesterol [facility] Start: 06-16-2025 Influenza vaccination Influenza Vaccine (#1) [facility] Start: 05-06-2025 Annual PCP Team Chronic Disease Visit Annual PCP Team Chronic Disease Visit [facility] Start: 05-06-2025 BP Controlled (<130/80) BP Controlled (<130/80) [facility] in Start: 05-02-2025 Plain X-ray of shoulder Shoulder min 2 Views [facility] Start: 05-02-2025 XR Shoulder GE 2 Views [facility] Start: 04-19-2025 Complete blood count Hemoglobin/Hematocrit [facility] Start: 04-19-2025 Creatinine measurement Serum Creatinine [facility] Start: 04-08-2025 Annual PCP Team Chronic Disease Visit Annual PCP Team Chronic Disease Visit [facility] Start: 04-08-2025 BP Controlled (<130/80) BP Controlled (<130/80) [facility] in Start: 04-04-2025 Complete blood count Hemoglobin/Hematocrit [facility] Start: 04-04-2025 Creatinine measurement Serum Creatinine [facility] Start: 03-26-2025 Annual PCP Team Chronic Disease Visit Annual PCP Team Chronic Disease Visit [facility] Start: 03-26-2025 BP Controlled (<130/80) BP Controlled (<130/80) [facility] in Start: 03-26-2025 Covid-19 Vaccine ( season) Covid-19 Vaccine () [facility] Comment on above: Postponed from 12/14/2023 (Declined at t his time) Start: 03-26-2025 Shingrix Vaccine (1 of 2) Shingrix Vaccine (1 of 2) [facility] Comment on above: Postponed from 1993 (Declined at t his time) Start: 03-25-2025 BP Controlled (<130/80) BP Controlled (<130/80) [facility] Start: 03-25-2025 Complete blood count Hemoglobin/Hematocrit [facility] Start: 03-25-2025 Creatinine measurement Serum Creatinine [facility] Start: 01-21-2025 End: 01-21-2025 Patient encounter procedure 01/21/2025 3:40 PM EDT Office Visit [facility] [address] [place] [address] Carolina Landeros APRN.TELEGRAPHIC TYPEWRITER INSTALLER [address] [place] [address] 6 month follow up Family [facility] Comment on above: 6 month follow up Start: 01-21-2025 End: 04-22-2025 CBC W Auto Differential panel - Blood [facility] Comment on above: Expected: 01/21/2025, Expires: Start: 01-21-2025 End: 04-22-2025 Cobalamin (Vitamin B12) [Mass/volume] in Serum or Plasma [facility] Comment on above: Expected: 01/21/2025, Expires: Start: 01-21-2025 End: 04-22-2025 Comprehensive metabolic 2000 panel - Serum or Plasma [facility] Work Phone: Comment on above: Expected: 01/21/2025, Expires: Start: 01-21-2025 End: 04-22-2025 Hemoglobin A1c in Blood [facility] Comment on above: Expected: 01/21/2025, Expires: Start: 01-21-2025 End: 04-22-2025 LIPID PANEL, NONFASTING [facility] Comment on above: Expected: 01/21/2025, Expires: Start: 01-21-2025 End: 04-22-2025 Magnesium [Mass/volume] in Serum or Plasma [facility] Comment on above: Expected: 01/21/2025, Expires: Start: 01-13-2025 End: 01-13-2025 Patient encounter procedure 01/13/2025 10:40 AM EDT Office Visit [facility] [address] [place] [address] Guanakito Reno MD [address] [place] [address] 6 month follow up Family [facility] Comment on above: 6 month follow up Start: 01-09-2025 Hemoglobin A1c measurement HbA1C [facility] Start: 12-21-2024 BP Controlled (<130/80) BP Controlled (<130/80) [facility] Start: 10-16-2024 Advance Directive Discussion Advance Directive Discussion [facility] Start: 10-16-2024 Medicare [facility] Annual Wellness Visit Medicare [facility] Annual Wellness Visit [facility] Start: 10-04-2024 Hemoglobin A1c measurement HbA1C [facility] Start: 08-14-2024 3 comp foot exam completed Diabetic Foot Exam [facility] Start: 08-14-2024 Annual PCP Team Chronic Disease Visit Annual PCP Team Chronic Disease Visit [facility] Start: 08-14-2024 BP Controlled (<130/80) BP Controlled (<130/80) [facility] inic Start: 08-14-2024 Complete blood count Hemoglobin/Hematocrit [facility] Start: 08-14-2024 Creatinine measurement Serum Creatinine [facility] Start: 08-14-2024 Diabetic foot examination Diabetic Foot Exam [facility] Start: 08-14-2024 Hemoglobin/Hematocrit Hemoglobin/Hematocrit [facility] Start: 08-14-2024 Hepatitis B surface antibody level LDL Cholesterol [facility] Start: 08-14-2024 Hepatitis B Vaccine (1 of 3 - Risk 3-dose series) Hepatitis B Vaccine (1 of 3 - Risk 3-dose series) [facility] Comment on above: Postponed from 2003 (Declined at t his time) Start: 08-14-2024 RSV Vaccine (1 - 1-dose 60+ series) RSV Vaccine (1 - 1-dose 60+ series) [facility] Comment on above: Postponed from 2003 (Declined at t his time) Start: 08-14-2024 RSV Vaccine (1 - 1-dose 75+ series) RSV Vaccine (1 - 1-dose 75+ series) [facility] Comment on above: Postponed from 2018 (Declined at t his time) Start: 08-14-2024 Serum Creatinine Serum Creatinine [facility] Start: 08-06-2024 End: 08-06-2024 Patient encounter procedure 08/06/2024 1:00 PM EDT Office Visit [facility] [address] [place], [place] [id number] Laura Iraheta MD [address] [facility] [address] [place], [place] [phone] Referral from Josselyn Mayer - carotid stenosis 05/02/24 Carotid US [facility] Comment on above: Referral from Josselyn Mayer - carotid s tenosis 05/02/24 Carotid US Start: 07-29-2024 End: 07-29-2024 ambulatory 07/29/2024 11:15 AM EDT Results Only [facility] [address] [place] [address] [place] [place] [facility] Start: 07-23-2024 End: 07-23-2024 Admission to same day surgery center 07/23/2024 10:00 AM EDT - 07/23/2024 11:30 AM EDT Surgery [place] [employer] [address] [place] [address] Pam Reddy MD [address], [address] [place] [address] CORONARY CATH RIGHT/LEFT HEART ANGIO INTRAPROCEDURAL INJECT IMAGING SUPERVISIO/INTERPRETATIO N [place] [employer] [facility] Comment on above: CORONARY CATH RIGHT/LEFT HEART ANGIO INT RAPROCEDURAL INJECT IMAGING SUPERVISIO/INTERPRETATION Start: 07-23-2024 End: 07-23-2024 R & l hrt cath winjx hrt art& l ventr img CORONARY CATH RIGHT/LEFT HEART ANGIO INTRAPROCEDURAL INJECT IMAGING SUPERVISIO/INTERPRETATIO N Valvular heart disease 07/23/2024 10:00 AM EDT [place] [employer] [facility] Start: 07-23-2024 Subsequent hospital visit by physician 07/23/2024 10:00 AM EDT Hospital Encounter [place] [facility] [facility] [address] [facility] [address] Pam Reddy MD [address] [place] [address] Valvular heart disease [I38] [place] [employer] [facility] Comment on above: Valvular heart disease [I38] Start: 07-23-2024 End: 07-23-2024 Patient encounter procedure 07/23/2024 7:30 AM EDT Appointment RADIO [facility] SCAN [facility] [address] [place] [address] 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.0]; Encounter for preprocedural cardiovascular examination [Z01.810] RADIO CT SCAN [facility] Comment on above: TAVR SCAN GATED [...] atrial fibrillation (HCC) Expected: 07/15/2024, Expires: 10/14/2024 [facility] Work Phone: Comment on above: Expected: 07/15/2024, Expires: Start: 07-12-2024 End: 10-11-2024 CBC W Auto Differential panel - Blood [facility] Comment on above: Expected: 07/12/2024, Expires: Start: 07-12-2024 End: 10-11-2024 Comprehensive metabolic 2000 panel - Serum or Plasma [facility] Comment on above: Expected: 07/12/2024, Expires: Start: 07-12-2024 End: 10-11-2024 Hemoglobin A1c in Blood [facility] Work Phone: Comment on above: Expected: 07/12/2024, Expires: Start: 07-12-2024 End: 10-11-2024 LIPID PANEL, NONFASTING [facility] Comment on above: Expected: 07/12/2024, Expires: Start: 07-12-2024 End: 07-12-2024 Patient encounter procedure 07/12/2024 11:20 AM EDT Office Visit [facility] [place] [address] [place] [id number] Guanakito Reno MD [address] [place] [address] 2 month follow up- stool sample,kidney and meds [facility] [place] Comment on above: 2 month follow up- stool sample,kidney a nd meds Start: 07-10-2024 End: 10-09-2024 Basic metabolic 2000 panel - Serum or Plasma BASIC METABOLIC PANEL Lab Routine Nonrheumatic aortic valve stenosis Expected: 07/10/2024, Expires: 10/09/2024 [facility] Comment on above: Expected: 07/10/2024, Expires: 4 Start: 07-10-2024 End: 10-09-2024 CBC panel - Blood by Automated count COMPLETE BLOOD COUNT Lab Routine Nonrheumatic aortic valve stenosis Expected: 07/10/2024, Expires: 10/09/2024 [facility] Comment on above: Expected: 07/10/2024, Expires: Start: 07-10-2024 End: 10-09-2024 Natriuretic peptide.B prohormone N-Terminal [Mass/volume] in Serum or Plasma NT PRO BNP Lab Routine Nonrheumatic aortic valve stenosis Dyspnea on exertion Expected: 07/10/2024, Expires: 10/09/2024 [facility] Comment on above: Expected: 07/10/2024, Expires: 4 Start: 07-10-2024 End: 10-09-2024 PT panel - Platelet poor plasma by Coagulation assay PROTHROMBIN TIME Lab Routine Nonrheumatic aortic valve stenosis Expected: 07/10/2024, Expires: 10/09/2024 [facility] Comment on above: Expected: 07/10/2024, Expires: Start: 07-10-2024 End: 07-10-2024 Patient encounter procedure [facility] Comment on above: Valve Clinic- Initial Visit- 5M Walk,EKG ,KCCQ Start: 06-16-2024 Covid-19 Vaccine ( season) Covid-19 Vaccine ( season) [facility] Start: 06-16-2024 Covid-19 Vaccine ( season) Covid-19 Vaccine ( season) [facility] Start: 06-16-2024 Influenza vaccination [facility] Start: 06-06-2024 End: 06-06-2024 Patient encounter procedure 06/06/2024 11:20 AM EDT Office Visit [facility] Lin Brennan [address] [place] [address] Carolina Landeros APRN.TELEGRAPHIC TYPEWRITER INSTALLER [address] [place] [address] Urgent care follow up [facility] Carole Comment on above: Urgent care follow up Start: 05-06-2024 End: 05-06-2024 Patient encounter procedure 05/06/2024 5:40 PM EDT Office Visit [facility] Lin Brennan [address] [place] [address] Corrina Lennon APRN.TELEGRAPHIC TYPEWRITER INSTALLER [address] [place] [address] 1 month follow up [facility] Lin Brennan Comment on above: 1 month follow up Start: 05-02-2024 End: 05-02-2024 Patient encounter procedure Radiology Comment on above: Renal insufficiency [N28.9] History of carotid e ndarterectomy [Z98.890] Syncope, unspecified syncope type [R55]; Aortic valve disorder [I35.9] Start: 04-08-2024 End: 04-08-2024 Patient encounter procedure 04/08/2024 3:00 PM EDT Office Visit [facility] Lin Brennan [address] [place] [address] Corrina Lennon APRN.TELEGRAPHIC TYPEWRITER INSTALLER [address] [place] [address] 2 w [facility] Comment on above: 2 w f/u Start: 04-08-2024 End: 03-25-2025 Echocardiography ECHO Cardiology Routine Syncope, unspecified syncope type Aortic valve disorder Expected: 04/08/2024, Expires: 03/25/2025 [facility] Comment on above: Expected: 04/08/2024, Expires: Start: 04-05-2024 End: 07-05-2024 Basic metabolic 2000 panel - Serum or Plasma BASIC METABOLIC PANEL Lab Routine CKD (chronic kidney disease) stage 4, 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/min (HCC) Anemia, unspecified type Expected: 04/05/2024, Expires: 07/05/2024 [facility] Comment on above: Expected: 04/05/2024, Expires: 4 Start: 04-05-2024 End: 07-05-2024 CBC W Auto Differential panel - Blood COMPLETE BLOOD COUNT AND DIFFERENTIAL Lab Routine CKD (chronic kidney disease) stage 4, 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/min (HCC) Anemia, unspecified type Expected: 04/05/2024, Expires: 07/05/2024 [facility] Comment on above: Expected: 04/05/2024, Expires: Start: 03-26-2024 End: 03-26-2024 Patient encounter procedure 03/26/2024 4:40 PM EDT Office Visit Family Lin Brennan [address] [place], [place] [id number] Guanakito Reno MD [address] [place], [place] [id number] 3 month f/u Family Lin Brennan Comment on above: 3 month f/u Start: 03-26-2024 End: 06-25-2024 Basic metabolic 2000 panel - Serum or Plasma BASIC METABOLIC PANEL Lab Routine Renal insufficiency Expected: 03/26/2024, Expires: 06/25/2024 [facility] Comment on above: Expected: 03/26/2024, Expires: Start: 03-26-2024 End: 03-26-2025 CBC W Auto Differential panel - Blood COMPLETE BLOOD COUNT AND DIFFERENTIAL Lab Routine Anemia, unspecified type Expected: 03/26/2024, Expires: 03/26/2025 [facility] Comment on above: Expected: 03/26/2024, Expires: Start: 03-26-2024 End: 03-26-2025 Cobalamin (Vitamin B12) [Mass/volume] in Serum or Plasma VITAMIN B12 Lab Routine Anemia, unspecified type Expected: 03/26/2024, Expires: 03/26/2025 [facility] Comment on above: Expected: 03/26/2024, Expires: Start: 03-26-2024 End: 03-26-2025 Ferritin [Mass/volume] in Serum or Plasma FERRITIN Lab Routine Anemia, unspecified type Expected: 03/26/2024, Expires: 03/26/2025 [facility] Comment on above: Expected: 03/26/2024, Expires: 5 Start: 03-26-2024 End: 03-26-2025 Folate [Mass/volume] in Serum or Plasma FOLATE, SERUM Lab Routine Anemia, unspecified type Expected: 03/26/2024, Expires: 03/26/2025 [facility] Comment on above: Expected: 03/26/2024, Expires: Start: 03-26-2024 End: 06-25-2024 Hemoglobin A1c in Blood HEMOGLOBIN A1C Lab Routine Type 2 diabetes mellitus with stage 3 chronic kidney disease, without long-term current use of insulin, unspecified whether stage 3a or 3b CKD (HCC) Expected: 03/26/2024, Expires: 06/25/2024 [facility] Comment on above: Expected: 03/26/2024, Expires: 4 Start: 03-26-2024 End: 03-26-2025 Hemoglobin.gastrointestin al.lower [Presence] in Stool by Immunoassay IMMUNOCHEMICAL FECAL OCCULT BLOOD TEST Lab Routine Anemia, unspecified type Expected: 03/26/2024, Expires: 03/26/2025 [facility] Comment on above: Expected: 03/26/2024, Expires: Start: 03-26-2024 End: 03-26-2025 Iron and Iron binding capacity panel - Serum or Plasma IRON AND TIBC Lab Routine Anemia, unspecified type Expected: 03/26/2024, Expires: 03/26/2025 [facility] Comment on above: Expected: 03/26/2024, Expires: Start: 03-25-2024 End: 03-25-2024 Patient encounter procedure 03/25/2024 2:40 PM EDT Office Visit Cardiology [address] [place] [address] Pam Reddy MD [address] [facility], [address] [place] [address] 1 yr f/u Cardiology Comment on above: 1 yr f/u Start: 02-14-2024 BP CONTROLLED (<130/80) BP CONTROLLED (<130/80) [facility] Start: 02-13-2024 Hemoglobin A1c measurement HbA1C [facility] Start: 02-13-2024 Hemoglobin A1c/Hemoglobin.total in Blood HbA1C [facility] Start: 02-07-2024 3 comp foot exam completed DIABETIC FOOT EXAM [facility] Start: 02-07-2024 ANNUAL PCP TEAM CHRONIC DISEASE VISIT ANNUAL PCP TEAM CHRONIC DISEASE VISIT [facility] Start: 02-07-2024 BP CONTROLLED (<130/80) BP CONTROLLED (<130/80) [facility] Start: 02-07-2024 SHINGRIX VACCINE (1 of 2) SHINGRIX VACCINE (1 of 2) [facility] Comment on above: Postponed from 1993 (Insurance Cov erage) Start: 12-14-2023 Covid-19 Vaccine () Covid-19 Vaccine () [facility] Start: 10-16-2023 Advance Directive Discussion Advance Directive Discussion [facility] Start: 10-04-2023 BP CONTROLLED (<130/80) BP CONTROLLED (<130/80) [facility] Start: 08-15-2023 End: 08-15-2024 Basic metabolic 2000 panel - Serum or Plasma BASIC METABOLIC PNL Lab Routine Renal insufficiency Expected: 08/15/2023, Expires: 08/15/2024 [facility] Work Phone: Comment on above: Expected: 08/15/2023, Expires: Start: 08-15-2023 BP CONTROLLED (<130/80) BP CONTROLLED (<130/80) [facility] Start: 08-15-2023 End: 11-14-2023 Urinalysis complete panel - Urine URINALYSIS, WITH MICROSCOPIC Lab Routine Renal insufficiency Expected: 08/15/2023, Expires: 11/14/2023 [facility] Work Phone: Comment on above: Expected: 08/15/2023, Expires: 4 Start: 06-16-2023 Covid-19 Vaccine () Covid-19 Vaccine () [facility] Start: 06-16-2023 Influenza vaccination [facility] Start: 06-08-2023 COVID-19 VACCINE (5 - Moderna series) COVID-19 VACCINE (5 - Moderna series) [facility] Start: 03-29-2023 BP CONTROLLED (<130/80) BP CONTROLLED (<130/80) [facility] Start: 02-20-2023 End: 02-14-2024 Echocardiography ECHO Cardiology Routine Syncope, unspecified syncope type Aortic valve disorder Expected: 02/20/2023, Expires: 02/14/2024 [facility] Work Phone: Comment on above: Expected: 02/20/2023, Expires: 4 Start: 02-06-2023 End: 04-08-2023 ALBUMIN/CREAT RATIO RND UR ALBUMIN/CREAT RATIO RND UR Lab Routine Type 2 diabetes mellitus with stage 3 chronic kidney disease, without long-term current use of insulin, unspecified whether stage 3a or 3b CKD (HCC) Expected: 02/06/2023, Expires: 04/08/2023 [facility] Work Phone: Comment on above: Expected: 02/06/2023, Expires: 3 Start: 02-06-2023 End: 04-08-2023 CBC W Auto Differential panel - Blood CBC + DIFF Lab Routine Type 2 diabetes mellitus with stage 3 chronic kidney disease, without long-term current use of insulin, unspecified whether stage 3a or 3b CKD (HCC) Expected: 02/06/2023, Expires: 04/08/2023 [facility] Work Phone: Comment on above: Expected: 02/06/2023, Expires: 3 Start: 02-06-2023 End: 04-08-2023 Comprehensive metabolic 2000 panel - Serum or Plasma COMP METABOLIC PANEL Lab Routine Type 2 diabetes mellitus with stage 3 chronic kidney disease, without long-term current use of insulin, unspecified whether stage 3a or 3b CKD (HCC) Expected: 02/06/2023, Expires: 04/08/2023 [facility] Work Phone: Comment on above: Expected: 02/06/2023, Expires: 3 Start: 02-06-2023 End: 04-08-2023 Hemoglobin A1c in Blood HGB A1C Lab Routine Type 2 diabetes mellitus with stage 3 chronic kidney disease, without long-term current use of insulin, unspecified whether stage 3a or 3b CKD (HCC) Expected: 02/06/2023, Expires: 04/08/2023 [facility] Work Phone: Comment on above: Expected: 02/06/2023, Expires: 3 Start: 02-06-2023 End: 04-08-2023 Lipid 1996 panel - Serum or Plasma LIPID PANEL BASIC Lab Routine Type 2 diabetes mellitus with stage 3 chronic kidney disease, without long-term current use of insulin, unspecified whether stage 3a or 3b CKD (HCC) Expected: 02/06/2023, Expires: 04/08/2023 [facility] Work Phone: Comment on above: Expected: 02/06/2023, Expires: 3 Start: 01-19-2023 ANNUAL PCP TEAM CHRONIC DISEASE VISIT ANNUAL PCP TEAM CHRONIC DISEASE VISIT [facility] Start: 01-19-2023 BP CONTROLLED (<130/80) BP CONTROLLED (<130/80) [facility] Start: 01-18-2023 HEMOGLOBIN/HEMATOCRIT HEMOGLOBIN/HEMATOCRIT [facility] Start: 01-18-2023 Hepatitis B screening URINE ALBUMIN:CREATININE RATIO [facility] Start: 01-18-2023 SERUM CREATININE SERUM CREATININE [facility] Start: 12-21-2022 Hepatitis B surface antibody level LDL CHOLESTEROL [facility] Start: 10-16-2022 ADVANCE DIRECTIVE DISCUSSION ADVANCE DIRECTIVE DISCUSSION [facility] Start: 08-22-2022 End: 08-15-2023 Echocardiography ECHO Cardiology Routine Nonrheumatic aortic valve stenosis Expected: 08/22/2022, Expires: 08/15/2023 [facility] Work Phone: Comment on above: Expected: 08/22/2022, Expires: 3 Start: 07-20-2022 Hemoglobin A1c/Hemoglobin.total in Blood HBA1C [facility] Start: 06-16-2022 Influenza vaccination [facility] Start: 04-12-2022 COVID-19 VACCINE (4 - Booster for Moderna series) COVID-19 VACCINE (4 - Booster for Moderna series) [facility] Start: 02-18-2022 End: 04-20-2022 Basic metabolic 2000 panel - Serum or Plasma BASIC METABOLIC PNL Lab Routine Essential hypertension with goal blood pressure less than 140/90 Expected: 02/18/2022, Expires: 04/20/2022 [facility] Work Phone: Comment on above: Expected: 02/18/2022, Expires: 2 Start: 02-07-2022 COVID-19 VACCINE (4 - Booster for Moderna series) COVID-19 VACCINE (4 - Booster for Moderna series) [facility] Start: 10-16-2021 ADVANCE DIRECTIVE DISCUSSION ADVANCE DIRECTIVE DISCUSSION [facility] Start: 01-18-2020 3 comp foot exam completed DIABETIC FOOT EXAM [facility] Start: 12-05-2019 Glaucoma screening Dilated Retinal Exam [facility] Start: 12-05-2019 Hepatitis C antibody, confirmatory test DILATED RETINAL EXAM [facility] Start: 2018 RSV Vaccine (1 - 1-dose 75+ series) RSV Vaccine (1 - 1-dose 75+ series) [facility] Start: 2003 Hepatitis B Vaccine (1 of 3 - Risk 3-dose series) Hepatitis B Vaccine (1 of 3 - Risk 3-dose series) [facility] Start: 1993 SHINGRIX VACCINE (1 of 2) SHINGRIX VACCINE (1 of 2) [facility] Start: 1961 BP Controlled (<130/80) BP Controlled (<130/80) [facility] Start: 1961 HEPATITIS C SCREENING HEPATITIS C SCREENING [facility] Start: 1949 PNEUMOCOCCAL: 65+ (1 - PCV) PNEUMOCOCCAL: 65+ (1 - PCV) [facility] End: 08-09-2025 CTA Abdominal vessels and Pelvis vessels W contrast IV CTA ABD/PEL W IVCON Radiology Routine Nonrheumatic aortic valve stenosis Encounter for preprocedural cardiovascular examination 1 Occurrences starting 07/10/2024 until 08/09/2025 [facility] Work Phone: Comment on above: 1 Occurrences starting 07/10/2024 until 08/09/2025 End: 07-23-2024 CTA Abdominal vessels and Pelvis vessels W contrast IV [facility] Work Phone: Comment on above: 1 Occurrences starting 07/23/2024 until 07/23/2024 End: 08-09-2025 CTA Chest vessels WO and W contrast IV CTA CHEST (GATED) WO/W IVCON Radiology Routine Nonrheumatic aortic valve stenosis Encounter for preprocedural cardiovascular examination 1 Occurrences starting 07/10/2024 until 08/09/2025 [facility] Comment on above: 1 Occurrences starting 07/10/2024 until 08/09/2025 End: 07-23-2024 CTA Chest vessels WO and W contrast IV [facility] Comment on above: 1 Occurrences starting 07/23/2024 until 07/23/2024 ECG COMPLETE ECG COMPLETE ECG Routine Syncope, unspecified syncope type Aortic valve disorder Paroxysmal atrial fibrillation (HCC) Ordered: 03/21/2024 [facility] Work Phone: Comment on above: Ordered: 03/21/2024 End: 07-10-2025 EXTENDED WEAR CARBON CLEANER PATCH EXTENDED WEAR CARBON CLEANER PATCH ECG Routine Nonrheumatic aortic valve stenosis 1 Occurrences starting 07/10/2024 until 07/10/2025 [facility] Comment on above: 1 Occurrences starting 07/10/2024 until 07/10/2025 End: 07-10-2024 EXTENDED WEAR CARBON CLEANER PATCH EXTENDED WEAR CARBON CLEANER PATCH ECG Routine Nonrheumatic aortic valve stenosis 1 Occurrences starting 07/10/2024 until 07/10/2024 [facility] Work Phone: Comment on above: 1 Occurrences starting 07/10/2024 until 07/10/2024 Hemoglobin.gastroint estin al.lower [Presence] in Stool by Immunoassay IMMUNOCHEMICAL FECAL OCCULT BLOOD TEST Lab Routine CKD (chronic kidney disease) stage 4, 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/min ([facility]) Anemia, unspecified type Ordered: 04/05/2024 [facility] Work Phone: Comment on above: Ordered: 04/05/2024 Hemoglobin.gastroint meliin al.lower [Presence] in Stool by Immunoassay IMMUNOCHEMICAL FECAL OCCULT BLOOD TEST Lab Routine Screen for colon cancer Ordered: 2024 [facility] Work Phone: Comment on above: Ordered: 2024 OUTSIDE VENDOR CARDI AC OUTPATIENT EXTENDED RHYTHM RECORDING (WITHOUT TELEMETRY) OUTSIDE VENDOR CARDIAC OUTPATIENT EXTENDED RHYTHM RECORDING (WITHOUT TELEMETRY) Holter Routine Syncope, unspecified syncope type Ordered: 02/13/2023 [facility] Work Phone: Comment on above: Ordered: 02/13/2023 Removal impacted cer umen irrigation/lvg unilat AMBULATORY EAR LAVAGE/IRRIGATION Procedures Routine Bilateral impacted cerumen Ordered: 01/21/2025 [facility] Comment on above: Ordered: 01/21/2025 End: 03-26-2025 US Carotid arteries - bilateral US CAROTID ARTERIES GRAY [facility]AS LAB Vascular Lab Routine History of carotid endarterectomy 1 Occurrences starting 03/26/2024 until 03/26/2025 [facility] Work Phone: Comment on above: 1 Occurrences starting 03/26/2024 until 03/26/2025 End: 03-16-2023 US CAROTID ARTERIES GRAY VAS LAB US CAROTID ARTERIES GRAY VAS LAB Vascular Lab Routine Bilateral carotid artery stenosis 1 Occurrences starting 03/18/2022 until 03/16/2023 [facility] Work Phone: Comment on above: 1 Occurrences starting 03/18/2022 until 03/16/2023 End: 10-04-2023 US CAROTID ARTERIES GRAY VAS LAB US CAROTID ARTERIES GRAY VAS LAB Vascular Lab Routine Bilateral carotid artery stenosis 1 Occurrences starting 10/04/2022 until 10/04/2023 [facility] Work Phone: Comment on above: 1 Occurrences starting 10/04/2022 until 10/04/2023 End: 04-25-2025 US Kidney - bilateral and Urinary bladder US KIDNEY/BLADDER Radiology Routine Renal insufficiency 1 Occurrences starting 03/26/2024 until 04/25/2025 [facility] Comment on above: 1 Occurrences starting 03/26/2024 until 04/25/2025 [facility] Immun[facility] Immunization Date Immunization Notes Care Provider Pete carter 07-12-2024 COVID-19 vaccine, ag e 12+ yr (PFIZER-BIONTECH COMIRNATY) Guanakito Reno MD Work Phone: [facility] 07-12-2024 influenza, high dose seasonal, preservative-free Guanakito Reno MD Work Phone: [facility] 07-12-2024 influenza virus vacc ine, unspecified formulation Guanakito Reno MD Work Phone: [facility] 08-14-2023 COVID-19 vaccine, ag e 12+ yr, season (PFIZER-BIONTECH) Guanakito Reno MD Work Phone: [facility] 08-14-2023 influenza (HD-IIV4) vaccine, age 65+ yr, high dose, quadrivalent, PF (FLUZONE HIGH-DOSE) Guanakito Reno MD Work Phone: [facility] 08-14-2023 influenza virus vacc ine, unspecified formulation Ruthie Walkermanuel [facility] 02-06-2023 COVID-19 vaccine, ag e 12+ yr, bivalent (PFIZER-BIONTECH) Guanakito Reno MD Work Phone: [facility] 12-13-2021 COVID-19 vaccine, ag e 12+ yr (PFIZER-BIONTECH - YANES TOP) Guanakito Reno MD Work Phone: [facility] 04-22-2021 tetanus and diphther ia toxoids, adsorbed, preservative free, for adult use (5 Lf of tetanus toxoid and 2 Lf of diphtheria toxoid) Guanakito Reno MD Work Phone: [facility] 02-16-2021 COVID-19 vaccine, fu ll dose (MODERNA) Guanakito Reno MD Work Phone: [facility] Work Phone: 01-19-2021 COVID-19 vaccine, fu ll dose (MODERNA) Guanakito Reno MD Work Phone: [facility] Work Phone: 07-18-2019 influenza, high dose seasonal, preservative-free Guanakito Reno MD Work Phone: [facility] Work Phone: 07-18-2019 influenza virus vacc ine, unspecified formulation Lizette Cardenas RN [facility] 09-15-2017 influenza, high dose seasonal, preservative-free Guanakito Reno MD Work Phone: [facility] 08-11-2016 influenza, high dose seasonal, preservative-free Guanakito Reno MD Work Phone: [facility] 08-11-2016 pneumococcal polysaccharide vaccine, 23 valent Guanakito Reno MD Work Phone: [facility] 08-10-2015 influenza, high dose seasonal, preservative-free Guanakito Reno MD Work Phone: [facility] 04-09-2015 pneumococcal conjuga te vaccine, 13 valent Guanakito Reno MD Work Phone: [facility] 10-21-2013 influenza virus vacc ine, unspecified formulation Guanakito Reno MD Work Phone: [facility] 08-08-2012 influenza virus vacc ine, unspecified formulation Guanakito Reno MD Work Phone: [facility] Work Phone: 10-12-2005 pneumococcal polysaccharide vaccine, 23 valent Guanakito Reno MD Work Phone: [facility] Work Phone: 12-02-2003 diphtheria and tetan us toxoids, adsorbed for pediatric use Guanakito Reno MD Work Phone: [facility] Work Phone: Payers Date Payer Category Payer Self-pay 2024 Unknown [id number] 2019 Medicare UHC AARP MEDICAR E [facility] MEDIC[facility] HMO [id number] 2019-Present [phone] [address] [address] [place] [address] O [id number] 2019 Medicare UHC AARP MEDICAR E [facility] MEDICARE O [id number] 2019-Present [phone] [address] [address] [place] [address] O [id number] 2019 Medicare (Managed Care) [facility] MEDIC[facility] HMO [id number] 2019 Medicare [id number] 2009 Unknown [id number] 2008 Medicare [id number] Medicare [id number] Unknown [id number]. 462 Unknown [id number] 2.840.1.270509.3.579.2. 462 Unknown [id number] 2.16840.1.975944.3.579.2. 462 Unknown [id number] [id number]. 462 Unknown [id number] [id number]. 462 Unknown [id number] 2.16.840.1.568686.3.579.2. 462 Unknown [id number] 2.16.840.1.159655.3.579.2. 462 Unknown [id number] 2.16840.1.206873.3.579.2. 462 Unknown [id number] 2.16840.1.356885.3.579.2. 462 Unknown [id number] 2.16840.1.468458.3.579.2. 462 Unknown [id number] 2.16840.1.807626.3.579.2. 462 Unknown [id number] 2.16840.1.808276.3.579.2. 462 Unknown [id number] 2.840.1.758253.3.579.2. 462 Unknown [id number] 2.16840.1.043706.3.579.2. 462 Unknown [id number] 2.840.1.304185.3.579.2. 462 Unknown [id number] 2.840.1.319131.3.579.2. 462 Unknown [id number] 2.16840.1.811445.3.579.2. 462 Unknown [id number] 2.840.1.749815.3.579.2. 462 Unknown [id number] 2.840.1.749518.3.579.2. 462 Unknown [id number] 2.840.1.624493.3.579.2. 462 Unknown [id number] 2.840.1.885647.3.579.2. 462 Unknown [id number] 2.840.1.120956.3.579.2. 462 Unknown [id number] [id number]. 462 Social History Date Type Detail Facility Start: 08-10-2015 End: 03-06-2025 Tobacco smoking status NHIS Ex-smoker [facility] Start: 12-05-1975 End: 12-05-1985 History of tobacco use Current smoker [facility] Start: 12-05-1975 End: 12-05-1985 History of tobacco use Cigarette Smoker [facility] Start: 01-19-2022 End: 03-06-2025 Alcohol intake Current non-drinker of alcohol (finding) [facility] Start: 10-26-2020 History SDOH Alcohol Frequency 1 [facility] Start: 10-26-2020 History SDOH Alcohol Std Drinks 98 [facility] Start: 05-15-2019 History SDOH Alcohol Comment none now; social in past [facility] Start: 10-26-2020 History SDOH Social Connections Get Together 2 [facility] Start: 10-26-2020 History SDOH Social Connections Living 4 [facility] Start: 10-26-2020 History SDOH Physica l Activity DPW 0 [facility] Start: 10-26-2020 History SDOH Financial 5 [facility] Start: 10-26-2020 Education 14 [facility] Start: 1945 Sex Assigned At Not on file [facility] Start: 01-09-2022 End: 08-15-2022 Exposure to SARS-CoV-2 (event) Not sure [facility] Start: 03-22-2022 End: 04-01-2022 Exposure to SARS-CoV-2 (event) Unable to assess [facility] Work Phone: Start: 08-10-2015 End: 04-11-2023 Cigarettes smoked current (pack per day) - Reported 2 [facility] Start: 08-10-2015 End: 06-05-2024 Tobacco use and exposure Smokeless tobacco non-user [facility] Start: 10-26-2020 End: 04-11-2023 Social connection and isolation panel [facility] Do you belong to any clubs or organizations such as hindu groups, unions, fraternal or athletic groups, or school groups? No [facility] Are you now , , , , never or living with a partner? [facility] How often to you hav e a drink containing alcohol? Never [facility] How many standard dr inks containing alcohol do you have on a typical day? Patient refused [facility] Do you feel stress - tense, restless, nervous, or anxious, or unable to sleep at night because your mind is troubled all the time - these days [OSQ] Only a little [facility] (I/We) worried vannesa er (my/our) food would run out before (I/we) got money to buy more. Never true [facility] Start: 1945 Sex Assigned At Male W [facility] Medical Equipment Procedure Code Equipment Code Equipment Origin al Text Equipment Identifier Dates [id number], [id number] Start: 11-11-2011 Comment on above: Test blood sugar(s) one times daily. Dx: 250.00. Insulin: No Test blood sugar(s) one time daily. Dx: 250.00. Insulin: No Goals Date Patient Goal Desired Activity /State Personal health goal Functional Status Date Assessment Result Facility 04-09-2015 Are you deaf, or do you have serious difficulty hearing No 04/09/2015 11:20 AM Stephany Welch MA [facility] 04-09-2015 Are you blind, or do you have serious difficulty seeing, even when wearing glasses No 04/09/2015 11:20 AM Stephany Welch MA [facility] 04-09-2015 Do you have serious difficulty walking or climbing stairs No 04/09/2015 11:20 AM Stephany Welch MA [facility] 04-09-2015 Do you have difficul ty dressing or bathing No 04/09/2015 11:20 AM Stephany Welch MA [facility] 04-09-2015 Because of a physica l, mental, or emotional condition, do you have difficulty doing errands alone such as visiting a physician's office or shopping No 04/09/2015 11:20 AM Stephany Welch MA [facility] Mental Status Date Assessment Result Facility 04-09-2015 Because of a physica l, mental, or emotional condition, do you have serious difficulty concentrating, remembering, or making decisions No 04/09/2015 11:20 AM Stephany Welch MA No [facility] Clinical Notes 03-29-2011 to 04-15-2025 Telephone Encounter - Twin Cole RP - 04/15/2025 9:09 AM EDTTelephone Encounter - Twin oCle RP - 04/15/2025 9:09 AM EDTTelephone Encounter - Leidy Malone RN - 04/14/2025 3:18 PM EDT Note Date & Type Note Facility 04-15-2025 Telephone encount er Note [facility] Ambulatory Pharmacy Anticoagulation Clinic Anticoagulation Episode Summary Anticoagulation Care Providers Provider Role Specialty Phone number Guanakito Reno MD [facility] [phone] Cal Mitchell is a 79 year old [...] Pharmacy Anticoagulation Clinic Pharmacy Antico[facility] Clinic Pager: [phone]. [facility] 04-15-2025 Miscellaneous Notes Formattin g of this note is different from the original. [facility] Anticoagulation [facility] Anticoagulation Episode Summary Anticoagulation Care Providers Provider Role Specialty Phone number Guanakito Reno MD [facility] [phone] Cal Mitchell is a 79 year old [...] Pharmacy Anticoagulation Clinic Pharmacy An[facility] Clinic Pager: [phone]. documented in this encounter [facility] 04-14-2025 Telephone encount er Note Gustavo calls back and notified of provider recommendation below. Voices understanding. Leidy Malone RN [facility] 04-14-2025 Miscellaneous Notes Formattin g of [...] him? Please advise documented in this encounter [facility] 04-14-2025 Telephone encount er Note Phoned Gustavo left message to return call and ask to speak to a nurse. [facility] 04-14-2025 Telephone encount er Note yes [facility] 04-14-2025 Telephone encount er Note Patient son in law Gustavo calling he has been giving the patient Tylenol 500 mg two tablets twice daily since his fracture right shoulder at almost the end of February. He is asking if it is alright that they are still giving it to him? Please advise [facility] 04-08-2025 Telephone encount er Note The following approved medication requests have been transmitted electronically. Requested Prescriptions Pending Prescriptions Disp Refills warfarin (COUMADIN) 5 mg tablet 90 tablet 3 Sig: Take 1 tablet by mouth once daily. warfarin (COUMADIN) 5 mg tablet 30 tablet 0 Sig: Take 1 tablet by mouth once daily. Carolina Landeros APRN.CNP [facility] 04-08-2025 Miscellaneous Notes Formattin g of [...] 2025 2:33 PM documented in this encounter [facility] 04-08-2025 Telephone encount er Note Prescription [...] Meyer LPN April 08, 2025 2:38 PM [facility] 04-08-2025 Miscellaneous Notes Formattin g of [...] 2025 2:38 PM documented in this encounter [facility] 04-08-2025 Telephone encount er Note Prescription [...] Meyer LPN April 08, 2025 2:33 PM [facility] 04-08-2025 Evaluation note Diagnosis Hypertensive kidney disease with stage 3 chronic kidney disease, unspecified whether stage 3a or 3b CKD (HCC) Type 2 diabetes mellitus with stage 3 chronic kidney disease, without long-term current use of insulin, unspecified whether stage 3a or 3b CKD (HCC) Chronic renal disease, stage IV (HCC) Chronic kidney disease, Stage IV (severe) documented in this encounter [facility]06-13-2025 Telephone encounter Note* Telephone Encounter - Niels Rodriges RN - 03/28/2025 1:04 PM EDT Faxed recent ov notes to [facility] per daughter, January request. . January reports [facility] and [facility] instructed her to have pcp office send an H & P to them for review. [facility]06-13-2025 Miscellaneous Notes* Telephone Encounter - Niels Rodriges RN - 03/28/2025 1:04 PM EDT Faxed recent ov notes to [facility] per daughter, January request. . January reports [place] [facility] [place] [facility] and [facility] instructed her to have pcp office send an H & P to them for review. [facility] Telephone encounter Note * Telephone Encounter - Alejandro Molina formerly [facility] - 03/24/2025 10:57 AM EDT [facility] Ambulatory Pharmacy Anticoagulation Clinic Anticoagulation Episode Summary Anticoagulation Care Providers Provider Role Specialty Phone number Guanakito Reno MD [facility] [phone] Cal Mitchell is a 79 year old [...] instructed to call [facility] at [phone] with any questionsor concerns. Alejandro Molina RPh Clinical Pharmacist, Pharmacy Anticoagulation Clinic Pharmacy Anticoagulation Clinic Pager: [phone] [facility]06-09-2025 Miscellaneous Notes* Telephone Encounter - Alejandro Molina RPh - 03/24/2025 10:57 AM EDT [facility] Ambulatory Pharmacy Anticoagulation Clinic Anticoagulation Episode Summary Anticoagulation Care Providers Provider Role Specialty Phone number Guanakito Reno MD [facility] [phone] Cal Mitchell is a 79 year old [...] instructed to call [facility] at [phone] with any questionsor concerns. Alejandro Molina RPh Clinical Pharmacist, Pharmacy Anticoagulation Clinic Pharmacy Anticoagulation Clinic Pager: [phone] documented [facility] encounterW[facility]05[facility] Evaluation note* Diagnosis Onset Date Resolution Status Admit Date Closed fracture of right pro ximal humerus acute March 07, 2025 1 2:49pm [facility] Work Phone: [phone]) [phone] Evaluation note* Diagnosis Onset Date Resolution Status Admit Date Closed fracture of right proximal humerus acute March 07, 2025 12:49pm Closed fracture of right proximal humerus acute May 02, 2025 10:11am [facility] Work Phone: [phone] NoteHNO ID: [id number] Author: CAROLINA LANDEROS APRN.TELEGRAPHIC TYPEWRITER INSTALLER Service: ? Author Type: Nurse Practitioner Type: [...] and 9-10/10 with movement. - Currently taking [place] for pain management. - Denies pain elsewhere [...] sl (more content not included)... [facility]05-08-2025 Telephone encounter Note* Telephone Encounter - Jimmy Carrizales, formerly [facility] - 02/20/2025 8:59 AM EDT [facility] Ambulatory Pharmacy Anticoagulation Clinic Anticoagulation Episode Summary Anticoagulation Care Providers Provider Role Specialty Phone number Guanakito Reno MD [facility] [phone] Cal Mitchell is a 79 year old [...] ALLERGIES No Known Allergies Indication for Warfarin: intermediate (current) use of anticoagulants Paroxysmal atrial fibrillation [...] missed any doses of warfarin. Jimmy Carrizales formerly [facility] Clinical Pharmacist, Pharmacy Anticoagulation Clinic Pharmacy Anticoagulation Clinic Pager: [phone]. [facility]05-08-2025 Miscellaneous Notes* Telephone Encounter - Jimmy Carrizales RPh - 02/20/2025 8:59 AM EDT [facility] Ambulatory Pharmacy Anticoagulation Clinic Anticoagulation Episode Summary Anticoagulation Care Providers Provider Role Specialty Phone number Guanakito Reno MD [facility] [phone] Cal Mitchell is a 79 year old [...] ALLERGIES No Known Allergies Indication for Warfarin: intermediate (current) use of anticoagulants Paroxysmal atrial fibrillation [...] missed any doses of warfarin. Jimmy Carrizales formerly [facility] Clinical Pharmacist, Pharmacy Anticoagulation Clinic Pharmacy Anticoagulation Clinic Pager: [phone]. [facility] in [facility]04-[facility] Telephone encounter Note * Telephone Encounter - Kamran Ayon RPh - 01/31/2025 12:43 PM EDT [facility] Ambulatory Pharmacy Anticoagulation Clinic Anticoagulation Episode Summary Anticoagulation Care Providers Provider Role Specialty Phone number Guanakito Reno MD [facility] [phone] Cal Mitchell is a 79 year old [...] ALLERGIES No Known Allergies Indication for Warfarin: intermediate (current) use of anticoagulants Paroxysmal atrial fibrillation [...] Pharmacy Anticoagulation Clinic Pharmacy Anticoagulation Clinic Pager: [phone]. [facility]04-18-2025 Miscellaneous Notes* Telephone Encounter - Kamran Ayon RPh - 01/31/2025 12:43 PM EDT [facility] Ambulatory Pharmacy Anticoagulation Clinic Anticoagulation Episode Summary Anticoagulation Care Providers Provider Role Specialty Phone number Guanakito Reno MD [facility] [phone] Cal Mitchell is a 79 year old [...] ALLERGIES No Known Allergies Indication for Warfarin: intermediate (current) use of anticoagulants Paroxysmal atrial fibrillation [...] missed any doses of warfarin. Kamran Ayon formerly [facility] Clinical Pharmacist, Pharmacy Anticoagulation Clinic Pharmacy Anticoagulation Clinic Pager: [phone]. documented in this encounterW[facility]04-10-2025 Progress note* Result Encounter Note - [...] levels, magnesium, and B12 are all normal. [facility]04-10-2025 Miscellaneous Notes* Result Encounter Note - [...] B12 are all normal. documented in this encounterW[facility]04-08-2025 NoteHNO ID: [id number] Author: GEOVANNA HINDS MA Service: ? Author Type: Swedish Masseuse Type: Progress Notes Filed: 01/21/2025 17:08 Note [...] 21, 2025 5:08 PM * Carolina Landeros APRN.KOURTNEY - 01/21/2025 3:43 PM EDT This is [...] taking lisinopril Monitors bp at home: Yes. [place] checks it, ok there Denies side effects: [...] 250.00. Insulin: No Lancets (ONE TOUCH DELICA) [facility] lancets Test blood sugar(s) one time daily. [...] No oropharyngeal exudate. Eyes: Comments: Conjunctiva gray. [place] and itchy Cardiovascular: Rate and Rhythm: Normal [...] MG TABLET - COMPREHENSIVE METABOLIC PANEL 12. intermediate (current) use of anticoagulants - ICD9: V58.61, [...] \\ Carolina Landeros APRN.CNP documented in this encounterW[facility]04-08-2025 Note* Addendum Note - Carolina Landeros APRN.CNP - 01/21/2025 4:54 PM EDTAddended by: CAROLINA LANDEROS on: 01/21/2025 04:54 PM Modules accepted: Orders [facility]04-08-2025 Miscellaneous Notes* Addendum Note - Carolina Landeros APRN.CNP - 01/21/2025 4:54 PM EDTAddended by: CAROLINA LANDEROS on: 01/21/2025 04:54 PM Modules accepted: Orders * Addendum Note - Geovanna Hinds MA - 01/21/2025 4:33 PM EDTAddended by: GEOVANNA HINDS on: 01/21/2025 04:33 PM Modules accepted: Orders documented in this encounterW[facility]04-08-2025 Note* Addendum Note - Geovanna Hinds MA - 01/21/2025 4:33 PM EDTAddended by: GEOVANNA HINDS on: 01/21/2025 04:33 PM Modules accepted: Orders [facility]04-08-2025 Instructions* Patient Instructions* Carolina Landeros APRN.CNP [...] up in 6 months documented in this encounterW[facility]04-08-2025 NoteHNO ID: [id number] Author: CAROLINA LANDEROS APRN.CNP Service: ? Author [...] taking lisinopril Monitors bp at home: Yes. [place] checks it, ok there Denies side effects: [...] COLONOSCOPY FLX DX W/COLLJ SPEC WHEN PFRMD 5/18/11 DSTRJ LESION PENIS SIMPLE CHEMICAL 10/20 PAST [...] 250.00. Insulin: No Lancets (ONE TOUCH DELICA) [facility] lancets Test blood sugar(s) one time daily. [...] No EXAM: (more content not included)...[facility]03-26-2025 Miscellaneous Notes* Telephone Encounter - Josselyn [...] 08, 2025 2:53 PM documented in this encounterW[facility]03-26-2025 Telephone encounter Note * Telephone Encounter [...] Barrow LPN January 08, 2025 2:53 PM [facility]03-26-2025 Telephone encounter Note* Telephone Encounter - Ruthie Cuevas RPh - 01/08/2025 8:51 AM EDT [facility] Ambulatory Pharmacy Anticoagulation Clinic Anticoagulation Episode Summary Anticoagulation Care Providers Provider Role Specialty Phone number Guanakito Reno MD [facility] [phone] Cal Mitchell is a 79 year old [...] ALLERGIES No Known Allergies 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 [facility]03-26-2025 Miscellaneous Notes* Telephone Encounter - Ruthie Cuevas RPh - 01/08/2025 8:51 AM EDT [facility] Ambulatory Pharmacy Anticoagulation Clinic Anticoagulation Episode Summary Anticoagulation Care Providers Provider Role Specialty Phone number Guanakito Reno MD [facility] [phone] Cal Mitchell is a 79 year old [...] ALLERGIES No Known Allergies Indication for Warfarin: intermediate (current) use of anticoagulants Paroxysmal atrial fibrillation [...] Pharmacy Anticoagulation Clinic Pharmacy Anticoagulation Clinic Pager: [phone]. documented in this encounterWo[facility]03-26-2025 Evaluation note* Diagnosis Hypertensive kidney disease with stage 3 chronic kidney disease, unspecified whether stage 3a or 3b CKD (HCC) documented in this encounter [facility]03-17-2025 Telephone encounter Note* Telephone Encounter - Octavio (Marketing RecruiterRuben Granados - 12/30/2024 9:15 AM EDT De called regarding INR result for patient. Result has been addressed below, no further action needed. Ruben Cunningham Appointment Specialist (pantograph ii engraver) Pharmacy Anticoagulation Clinic [facility]03-17-2025 Miscellaneous Notes* Telephone Encounter - Octavio JansenLumenzRuben Granados - 12/30/2024 9:15 AM EDT De called regarding INR result for patient. Result has been addressed below, no further action needed. Ruben Cunningham Appointment Specialist (pantograph ii engraver) Pharmacy Anticoagulation Clinic * Telephone Encounter - Twin Cole RPh - 12/30/2024 9:12 AM EDT [facility] Ambulatory Pharmacy Anticoagulation Clinic Anticoagulation Episode Summary Anticoagulation Care Providers Provider Role Specialty Phone number Guanakito Reno MD [facility] [phone] Cal Mitchell is a 79 year old [...] Pharmacy Anticoagulation Clinic Pharmacy Anticoagulation Clinic Pager: [phone]. documented in this encounterW[facility]03-17-2025 Telephone encounter Note * Telephone Encounter - Twin Cole RPh - 12/30/2024 9:12 AM EDT [facility] Ambulatory Pharmacy Anticoagulation Clinic Anticoagulation Episode Summary Anticoagulation Care Providers Provider Role Specialty Phone number Guanakito Reno MD [facility] [phone] Cal Mitchell is a 79 year old [...] missed any doses of warfarin. Twin Cole bobbi Clinical Pharmacist, Pharmacy Anticoagulation Clinic Pharmacy Anticoagulation Clinic Pager: [phone]. [facility]02-26-2025 Telephone encounter Note* Telephone Encounter - Jimmy Carrizales, formerly [facility] - 12/11/2024 9:43 AM EST [facility] Ambulatory Pharmacy Anticoagulation Clinic Anticoagulation Episode Summary Anticoagulation Care Providers Provider Role Specialty Phone number Guanakito Reno MD [facility] [phone] Cal Mitchell is a 79 year old [...] ALLERGIES No Known Allergies Indication for Warfarin: intermediate (current) use of anticoagulants Paroxysmal atrial fibrillation [...] Pharmacy Anticoagulation Clinic Pharmacy Anticoagulation Clinic Pager: [phone]. 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 documented in this encounterW[facility]02-11-2025 Telephone encounter Note * Telephone Encounter - Twin Cole RPh - 11/26/2024 5:26 PM EST [facility] Ambulatory Pharmacy Anticoagulation Clinic Anticoagulation Episode Summary Anticoagulation Care Providers Provider Role Specialty Phone number Guanakito Reno MD [facility] [phone] Cal Mitchell is a 79 year old [...] missed any doses of warfarin. Twin Cole formerly [facility] Clinical Pharmacist, Pharmacy Anticoagulation Clinic Pharmacy Anticoagulation Clinic Pager: [phone]. [facility]02-11-2025 Miscellaneous Notes* Telephone Encounter - Twin Cole RPh - 11/26/2024 5:26 PM EST [facility] Ambulatory Pharmacy Anticoagulation Clinic Anticoagulation Episode Summary Anticoagulation Care Providers Provider Role Specialty Phone number Guanakito Reno MD [facility] [phone] Cal Mitchell is a 79 year old [...] Pharmacy Anticoagulation Clinic Pharmacy Anticoagulation Clinic Pager: [phone]. documented in this encounterW[facility]01-13-2025 Telephone encounter Note * Telephone Encounter - Alejandro Molina RPh - 10/28/2024 5:06 PM EST [facility] Ambulatory Pharmacy Anticoagulation Clinic Anticoagulation Episode Summary Anticoagulation Care Providers Provider Role Specialty Phone number Guanakito Reno MD [facility] [phone] Cal Mitchell is a 79 year old [...] instructed to call [facility] at [phone] with any questionsor concerns. Alejandro Molina RPh Clinical Pharmacist, Pharmacy Anticoagulation Clinic Pharmacy Anticoagulation Clinic Pager: [phone] [facility]01-13-2025 Miscellaneous Notes* Telephone Encounter - Alejandro Molina RPh - 10/28/2024 5:06 PM EST [facility] Ambulatory Pharmacy Anticoagulation Clinic Anticoagulation Episode Summary Anticoagulation Care Providers Provider Role Specialty Phone number Guanakito Reno MD [facility] [phone] Cal Mitchell is a 79 year old [...] instructed to call [facility] at [phone] with any questionsor concerns. Aljeandro Molina RPh Clinical Pharmacist, Pharmacy Anticoagulation Clinic Pharmacy Anticoagulation Clinic Pager: [phone] documented in this encounterWo[facility]01-06-2025 Telephone encounter Note * Telephone Encounter - Ashley De Dios RN - 10/21/2024 2:58 PM EST Pt ALEC Chen called and is notified of providers message. He voices understanding. Ashley De Dios RN [facility]01-06-2025 Miscellaneous Notes* Telephone Encounter - Ashley [...] Please call and advise. documented in this encounterWo[facility] Hospital01-06-2025 Telephone encounter Note * Telephone Encounter - Guanakito Reno MD - 10/21/2024 2:25 PM EST agree [facility]01-06-2025 Telephone encounter Note* Telephone Encounter - [...] to the Pt. Ashley De Dios RN [facility]01-06-2025 Telephone encounter Note* Telephone Encounter - Guanakito Reno MD - 10/21/2024 1:55 PM EST Can try mucinex otc. Call if symptoms worsen at all or if not better in one to two weeks [facility]01-06-2025 Telephone encounter Note* Telephone Encounter - [...] him for Covid. Please call and advise. [facility]12-17-2024 Telephone encounter Note* Telephone Encounter - Twin Cole formerly [facility] - 10/01/2024 9:37 AM EST [facility] Ambulatory Pharmacy Anticoagulation Clinic Anticoagulation Episode Summary Anticoagulation Care Providers Provider Role Specialty Phone number Guanakito Reno MD [facility] [phone] Cal Mitchell is a 79 year old [...] Pharmacy Anticoagulation Clinic Pharmacy Anticoagulation Clinic Pager: [phone]. [facility]12-17-2024 Miscellaneous Notes* Telephone Encounter - Twin Cole RPh - 10/01/2024 9:37 AM EST [facility] Ambulatory Pharmacy Anticoagulation Clinic Anticoagulation Episode Summary Anticoagulation Care Providers Provider Role Specialty Phone number Guanakito Reno MD [facility] [phone] Cal Mitchell is a 79 year old [...] Pharmacy Anticoagulation Clinic Pharmacy Anticoagulation Clinic Pager: [phone]. documented in this encounterWo[facility]11-11-2024 Telephone encounter Note * Telephone Encounter - Alejandro Molina RPh - 08/26/2024 6:35 AM EST [facility] Ambulatory Pharmacy Anticoagulation Clinic Anticoagulation Episode Summary Anticoagulation Care Providers Provider Role Specialty Phone number Guanakito Reno MD [facility] [phone] Cal Mitchell is a 79 year old [...] warfarin instructions: 5 mg every day Sent [employer] message Advised patient to continue current weekly dose as noted above Next INR check due on 09/09/2024 Alejandro Molina RPh Clinical Pharmacist, Pharmacy Anticoagulation Clinic Pharmacy Anticoagulation Clinic Pager: [phone]. [facility]11-11-2024 Miscellaneous Notes* Telephone Encounter - Alejandro Molina RPh - 08/26/2024 6:35 AM EST [facility] Ambulatory Pharmacy Anticoagulation Clinic Anticoagulation Episode Summary Anticoagulation Care Providers Provider Role Specialty Phone number Guanakito Reno [facility] [phone] Cal Mitchell is a 79 year old [...] warfarin instructions: 5 mg every day Sent [employer] message Advised patient to continue current weekly dose as noted above Next INR check due on 09/09/2024 Alejandro Molina RPh Clinical Pharmacist, Pharmacy Anticoagulation Clinic Pharmacy Anticoagulation Clinic Pager: [phone]. documented in this encounterWooster [facility] Hospital11-04-2024 NoteHNO ID: [id number] Author: MELANIA GALINDO RN Service: ? Author Type: Registered Nurse Type: Progress Notes Filed: 08/19/2024 12:55 Note Text: Summary: Medication Adherence Review per Request of Payor QI SMITH RN Reason for review or outreach: Medication Adherence Review Details: Cholesterol FYI/REQUESTED ACTION: Summary / Findings: Atorvastatin was due for refill on/before 08.09.24. Sent [employer] reminder 08.15.24- not read Called patient Patient identified by name and date of . Patient Attributed To: QAE Payer: [employer] Action Taken: Data submitted to Payer Contact made with patient: No, Left message [facility] Schreiber [facility] History of Present illness Narrative* Melania Galindo RN - 08/19/2024 12:51 PM ESTSummary: Medication Adherence Review per Request of Payor QI LUIS RN Reason for review or outreach: Medication Adherence Review Details: Cholesterol FYI/REQUESTED ACTION: Summary / Findings: Atorvastatin was due for refill on/before 08.09.24. Sent [employer] reminder 08.15.24- not read Called patient Patient identified by name and date of . Patient Attributed To: QAE Payer: [employer] Action Taken: Data submitted to Payer Contact made with patient: No, Left message BENJIE Schreiber RN documented in this encounterWooster [facility]11-04-2024 NotePatient Outreach ([facility]) CAL MITCHELL ([id number]) 1945 M Date Time Provider Department 08/19/24 [...] of . 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 [Z79.*02/04/2020 Dementia, vascular, mixed, with behavioral dist*08/26/2020 08/14/2023 Obesity, Class II, BMI 35-39.9 [E66.812] 08/15/2022 Aortic valve disorder [I35.9] 08/15/2022 Abnormal electrocardiography [R94.31] 08/14/2023 Diagnosed: 08/14/2023 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 Cannot tell this Nurse what he is taking and not takiing at this time. Carolin Cantu LPN August 06, 2024 1:29 PM [facility]10-22-2024 Nurse Note* Carolin Cantu LPN - 08/06/2024 1:28 PM EDT Patient not a good historian of medications. Cannot tell this Nurse what he is taking and not takiing at this time. Carolin Cantu LPN August 06, 2024 1:29 PM documented in this encounterWooster [facility]10-22-2024 History of Present illness Narrative* Laura Iraheta MD - 08/06/2024 1:25 PM EDT Images from the original note were not included. Heart , Vascular and Thoracic [place] DEPARTMENT OF VASCULAR SURGERY OUTPATIENT VISIT DATE [...] (COUMADIN) 5 mg tablet 7.5 mg on Alesha, 5 mg all other days or as [...] Cardiovascular: Negative for chest pain or recent [place] Gatrointestinal: Negative for abdominal discomfort Genitourinary: Negative [...] 2024 TIME: 4:41 PM documented in this encounterWooster [facility] Hospital10-17-2024 Telephone encounter Note * Telephone Encounter - Josselyn Mayer APRN.CNP - 08/01/2024 9:56 AM EDT I spoke with Gustavo and communicated recommendations of medical therapy. He reports patient also expressed wanting to continue without any further intervention. Patient and family agreeable to plan. Josselyn Mayer APRN.CNP [facility]10-17-2024 Miscellaneous Notes* Telephone Encounter - Josselyn [...] Gustavo calls requesting a return call at [phone]. Chely Nicolas, BENJIE * Telephone Encounter - Josselyn Mayer APRN.CNP - 07/30/2024 10:34 AM EDT Attempted to contact patient and his family to update him on the treatment plan. Left voicemail requesting phone call back. Josselyn Mayer APRN.CNP documented in this encounterWooster [facility] Hospital10-16-2024 Telephone encounter Note * Telephone Encounter - Chely Nicolas RN - 07/31/2024 3:53 PM EDT Gustaov calls requesting a return call at [phone]. Chely Nicolas RN [facility]10-15-2024 History of Present illness Narrative* Josselyn Mayer APRN.CNP - 07/30/2024 10:45 AM EDT MULTI DISCIPLINARY HIGH RISK AVR CARDIAC TEAM Members present: Dr. Malcolm, Dr. Mondragon, Dr. Norman, Dr. Escalera, Dr. Reddy, Gian Mayer APRN, CNP, Frank Brito CNP, ALEJANDRA Ma., ALEJANDRA Rice, Niels Cardoza [...] Josselyn Mayer APRN.CNP 07/30/2024 documented in this encounterWooster [facility] Hospital10-15-2024 Telephone encounter Note * Telephone Encounter - Josselyn Mayer APRN.CNP - 07/30/2024 10:34 AM EDT Attempted to contact patient and his family to update him on the treatment plan. Left voicemail requesting phone call back. Josselyn Mayer APRN.CNP [facility]10-11-2024 Telephone encounter Note* Telephone Encounter - Kamran Ayon RP - 07/26/2024 4:22 PM EDT Images from the original note were not included. Called and left voice message for daughter January asking her to return call to Pharmacy Anticoagulation Clinic to discuss if Lovenox was started for patient. Josselyn Mayer APRN.Chely Cho RN (2:01 PM) I sent 8 syringes to [...] patient to test INR. Kamran Ayon PharmD, ANGIE [facility]10-11-2024 Miscellaneous Notes* Telephone Encounter - Kamran Ayon RP - 07/26/2024 4:22 PM EDT Images from the original note were not included. Called and left voice message for daughter January asking her to return call to Pharmacy Anticoagulation Clinic to discuss if Lovenox was started for patient. Josselyn Mayer APRN.Chely Cho RN (2:01 PM) I sent 8 syringes to [...] BCPS * Telephone Encounter - Jimmy Carrizales formerly [facility] - 07/25/2024 11:45 AM EDT Left voice message asking patient at [phone] (home) or daughter January to call the Anticoagulation Clinic at [phone] re: patient recenly off warfarin for heart cath on 07/23/24. Patient was prescribed Lovenox 100 mg sq Once daily by cardiology. Next Action for Anti coag Management: TM Remote Jimmy Carrizales PharmD., CACP documented in this encounterWooster [facility] Hospital10-10-2024 Telephone encounter Note * Telephone Encounter - Jimmy Carrizales RPh - 07/25/2024 11:45 AM EDT Left voice message asking patient at [phone] (home) or daughter January to call the Anticoagulation Clinic at [phone] re: patient recenly off warfarin for heart cath on 07/23/24. Patient was prescribed Lovenox 100 mg sq Once daily by cardiology. Next Action for Anti coag Management: Remote Jimmy Carrizales PharmD., CACP [facility]10-08-2024 History of Present illness Narrative* Victoria Marks RT(R) - 07/23/2024 7:30 AM EDT Radiology [...] PATIENT PRESENTS WITH AN IMPLANTABLE OR ATTACHED WIRE TRANSFER CLERK: No ALLERGIES: Reviewed and unchanged CONTRAST ALLERGY: [...] Abdomen Pelvis and CTA Chest SIGNATURE: RT Yoshi(Sarah) PATIENT NAME: Cal Mitchell DATE: July 23, 2024 TIME: 9:13 AM documented in this encounterWooster [facility] Hospital09-30-2024 Telephone encounter Note * Telephone Encounter - Josselyn Barrow LPN - 07/15/2024 3:19 PM EDT Notified Gustavo. [facility]09-30-2024 Miscellaneous Notes* Telephone Encounter - Josselyn [...] proceeding. Teresa Alexis RN documented in this encounterWooster Community Hospital09-30-2024 Telephone encounter Note * Telephone Encounter - Magdalena Laird LPN - 07/15/2024 3:15 PM EDT Son notified of results and provider message. Magdalena Laird LPN [facility]09-30-2024 Miscellaneous Notes* Telephone Encounter - Magdalena [...] does off of meds. documented in this encounterWooster Community Hospital09-30-2024 Telephone encounter Note * Telephone Encounter - Guanakito Reno MD - 07/15/2024 2:40 PM EDT Agree. As long as he is aware. [facility]-30-[facility] Telephone encounter Note* Telephone Encounter - [...] like PCP recommendationbefore proceeding. Teresa Alexis, RN [facility]09-30-2024 Telephone encounter Note* Telephone Encounter - Carolina Alba MA - 07/15/2024 2:14 PM EDT Message left for return call. Carolina Alba MA [facility]09-30-2024 Telephone encounter Note* Telephone Encounter - Guanakito Reno MD - 07/15/2024 1:04 PM EDT Kidney function and anemia are stable. See nephrology as we had recommended. Sugars are overall notbad. Hold on amaryl. Call sugars in two weeks to see how he does off of meds. [facility]-30[facility] History of Present illness Narrative* Guanakito Reno MD - 07/15/2024 8:03 AM EDT Apparently second visit created in error. documented in this encounterWooster [facility] Hospital09-27-2024 Telephone encounter Note * Telephone Encounter - Guanakito Reno MD - 07/12/2024 12:49 PM EDT Noted. Thank you [facility]09-27-2024 Miscellaneous Notes* Telephone Encounter - Guanakito Reno MD - 07/12/2024 12:49 PM EDT Noted. Thank you * Telephone Encounter - Art Estes - 07/12/2024 12:34 PM EDT Attempted to find sooner apt time for patients nephrology apt, no sooner times within [facility] facilities that are faster than patients [facility] apt. documented in this encounterWo[facility] Hospital09-27-2024 Telephone encounter Note * Telephone Encounter - Art Estes - 07/12/2024 12:34 PM EDT Attempted to find sooner apt time for patients nephrology apt, no sooner times within [facility] facilities that are faster than patients [facility] apt. [facility]09-[facility] History of Present illness Narrative* Guanakito [...] or worsening shortness of breath. Currently wearing [employer] heart monitor. Placed yesterday. Follows with Cardiology. [...] 250.00. Insulin: No Lancets (ONE TOUCH DELICA) [facility] lancets Test blood sugar(s) one time daily. [...] ICD10: G30.9, F01.50, F02.80 - stable. 10. 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 Guanakito Reno MD documented in this encounterWooster [facility] Hospital09-25-2024 History of Present illness Narrative* Pam Reddy MD - 07/10/2024 3:07 PM EDT Images from the original note were not included. Pam Reddy MD Interventional Cardiology [address] [place] [id number] Chief Complaint Patient presents with: Aortic Stenosis: [...] with significant dementia. Patient follow-up at the [place] office 6 months ago he was completely [...] 150 Strip 3 Lancets (ONE TOUCH DELICA) [facility] lancets Test blood sugar(s) one time daily. [...] CTA CHEST (GATED) WO/W IVCON - CARDIAC GAS APPLIANCE SERVICER HELPER ORDER - EXTENDED WEAR CARBON CLEANER PATCH - COMPLETE BLOOD COUNT - BASIC [...] (<6 days)* 15.7% Josselyn Mayer APRN.CNP * Carolin Cantu LPN - 07/10/2024 8:03 AM EDT CARDIAC REHAB 5 METER WALK TEST SERVICE DATE: 07/10/2024 SERVICE TIME: 8:05AM (Patient used his cane for mobile stability during his 5 Meter Walk Test.) 11.00sec 10.58sec 10.59sec ASSESSMENT: SIGNATURE: Carolin Cantu LPN PATIENT NAME: Cal Mitchell DATE: July 10, 2024 TIME: 8:06 AM PAGER/CONTACT #: [phone] documented in this encounterWooster Community Hospital09-25-2024 Nurse Note* Judy Magana Photo Equipment Technician - 07/10/2024 10:00 AM EDT Applied 14 day extended wear EKG patch. Pt verbalized understanding of monitor use / diary. [facility] Nurse Note* Judy Magana Photo Equipment Technician - 07/10/2024 10:00 AM EDT Applied 14 day extended wear EKG patch. Pt verbalized understanding of monitor use / diary. documented in this encounterWooster Community Hospital09-25-2024 Instructions* Patient Instructions* Josselyn Mayer APRN.TELEGRAPHIC TYPEWRITER INSTALLER - 07/10/2024 8:55 AM EDT Images from the original note were not included. Today, you met with Dr. Reddy and Dr. Mondragon to discuss your aortic valve stenosis. We [...] process is complete. The content on the [employer] website is not intended nor recommended as a substitute for medical advice, diagnosis, or treatment. Always seek the advice of your own physician or other qualified healthcare professional regarding any medical questions or conditions.. 2016 [employer]. All rights reserved. Topic 47960 Version 5.0 documented in this encounterWooster Community Hospital09-25-2024 History of Present illness Narrative* Cal Mondragon MD - 07/10/2024 8:37 AM EDT PRIMARY CARE PHYSICIAN: Guanakito Reno [address] [place] [address] Subjective Chief Complaint Patient presents with: Aortic [...] 150 Strip 3 Lancets (ONE TOUCH DELICA) [facility] lancets Test blood sugar(s) one time daily. [...] has significant left carotid stenosis. We believe jose gld continue workup with L/RHC and TAVR scans in preparation for TAVR. We will also refer to vascular surgery and a weekend anchor for further evaluation. Family will discuss how aggressive they would like to be with potential valve replacement as well. Cal Mondragon MD Cardiothoracic Surgery 07/10/2024 * Carolin Cantu LPN - 07/10/2024 8:11 AM EDT CARDIAC REHAB 5 METER WALK TEST SERVICE DATE: 07/10/2024 SERVICE TIME: 8:05AM (Patient used his cane for mobile stability during his 5 Meter Walk Test.) 11.00sec 10.58sec 10.59sec ASSESSMENT: SIGNATURE: Carolin Cantu LPN PATIENT NAME: Cal Mitchell DATE: July 10, 2024 TIME: 8:13 AM PAGER/CONTACT #: [phone] documented in this encounterWooster [facility] Hospital09-20-2024 Telephone encounter Note * Telephone Encounter - Annamarie Garcia formerly [facility] - 07/05/2024 9:43 AM EDT [facility] Anticoagulation Episode Summary Anticoagulation Care Providers Provider Role Specialty Phone number Guanakito Reno MD [facility] [phone] Cal Mitchell is a 79 year old [...] ALLERGIES No Known Allergies 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 documented in this encounterW[facility]09-03-2024 Telephone encounter Note * Telephone Encounter - Jimmy Carrizales RPh - 06/18/2024 8:39 AM EDT [facility] Anticoagulation Episode Summary Anticoagulation Care Providers Provider Role Specialty Phone number Guanakito Reno MD [facility] [phone] Cal Mitchell is a 78 year old [...] ALLERGIES No Known Allergies Indication for Warfarin: intermediate (current) use of anticoagulants Paroxysmal atrial fibrillation [...] Pharmacy Anticoagulation Clinic Pharmacy Anticoagulation Clinic Pager: [phone]. 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 documented in this encounterWooster [facility] Hospital08-22-2024 Instructions* Patient Instructions* Carolina Landeros APRN.CNP - 06/06/2024 12:10 PM EDT 1) Stop Actos 2) Stop melatonin 3) Try to increase protein 4) Follow up in 1 months documented in this encounterWooster [facility] Hospital08-22-2024 History of Present illness Narrative* Carolina Landeros APRN.CNP - 06/06/2024 11:39 AM EDT This is [...] 250.00. Insulin: No Lancets (ONE TOUCH DELICA) [facility] lancets Test blood sugar(s) one time daily. [...] improvement. Carolina Landeros APRN.CNP documented in this encounterWooster [facility] Hospital08-21-2024 Telephone encounter Note * Telephone Encounter - Josselyn Barrow LPN - 06/05/2024 4:53 PM EDT Attempted to reach daughter and her is already here with patient. [facility]08-21-[facility] Miscellaneous Notes* Telephone Encounter - Josselyn [...] Khan? Corrina Lennon APRN.CNP documented in this encounterWooster Community Hospital08-21-2024 Telephone encounter Note * Telephone Encounter [...] can get him scheduled. Corrina Lennon APRN.KOURTNEY [facility]08-21-2024 History of Present illness Narrative* Valerie Connelly APRN.KOURTNEY - 06/05/2024 4:45 PM EDT This note was created using [employer]. Subjective Cal Mitchell is a 78 year old male. 78 year old male with PMH HTN, hyperlipidemia, afib, PAD, CKD, DM presents for medical complaints. Acute onset of symptoms was over a week ago Patients daughter had sent in a [employer] message on 06/03/24. At that time she [...] history is provided by the patient. No educational speech language clinician was used. Edema This is a new [...] 8 hours as needed. blood sugar diagnostic ([employer]ba ULTRA TEST) test strip Test blood sugar(s) one times daily. Dx: 250.00. Insulin: No Lancets (ONE TOUCH DELICA) [facility] lancets Test blood sugar(s) one time daily. [...] change medicines related to chronic conditions. Reviewed [employer] messages where patient was requested to be seen in person by PCP Appt made for AM 06/06/24 Valerie Connelly APRN.TELEGRAPHIC TYPEWRITER INSTALLER documented in this encounterWooster [facility] Hospital08-21-2024 Telephone encounter Note * Telephone Encounter [...] daughter Elly or son-in-law Gustavo. Thank you. [facility]08-19-2024 Telephone encounter Note* Telephone Encounter - Corrina Lennon APRN.CNP - 06/03/2024 7:42 PM EDT We should probably have him in so we can see his legs and check his blood pressure. Please help schedule. Can we also get him contact info for nephrology. If he is looking for carole, it would probably beDrTitus Khan? Corrina Lennon APRN.TELEGRAPHIC TYPEWRITER INSTALLER [facility]08-08-2024 Telephone encounter Note* Telephone Encounter - Chely Nicolas RN - 05/23/2024 9:49 AM EDT Images from the original note were not included. Gladys Bella31 minutes ago (9:17 AM) TR Good Morning. Pt is scheduled for Valve Clinic on 07/10/24 at 8:30 am per Josselyn. [facility]08-08-2024 Miscellaneous Notes* Telephone Encounter - Chely [...] PM) Let's see at the valve clinic sledonaldo * Telephone Encounter - Chely Nicolas RN - 05/20/2024 2:46 PM EDT ----- Message from Josselyn Mayer APRN.TELEGRAPHIC TYPEWRITER INSTALLER sent at 05/20/2024 2:28 PM EDT ----- Creatinine 2.3. Per chart review he was asymptomatic but had an episode of syncope. Do you want work up first or just valve clinic? Josselyn ----- Message ----- From: Pam Reddy MD Sent: 05/18/2024 8:44 AM EDT To: Chely Nicolas RN; Josselyn Mayer APRN.TELEGRAPHIC TYPEWRITER INSTALLER Aortic stenosis need to establish care at [...] [facility] documented in this encounterWooster [facility] Hospital08-08-2024 Telephone encounter Note * Telephone Encounter - Chely Nicolas RN - 05/23/2024 8:27 AM EDT Left message on voicemail requesting pt return call for test results and MD recommendations. Officephone number provided. Chely Nicolas RN [facility]08-08-2024 Telephone encounter Note* Telephone Encounter - Chely Nicolas RN - 05/23/2024 8:26 AM EDT Images from the original note were not included. Pam Reddy MD You; Josselyn Mayer, DIRECTOR DIGITAL ADVERTISING.CNP15 hours ago (4:42 PM) Let's see at the valve clinic kam [facility]08-06-2024 Telephone encounter Note* Telephone Encounter - Claritza Hardin - 05/21/2024 3:10 PM EDT Patient's son in law called in to confirm appointment with Dr. Reddy. Thanks Claritza Hardin [facility]08-06-2024 Miscellaneous Notes* Telephone Encounter - Claritza Hardin - 05/21/2024 3:10 PM EDT Patient's son in law called in to confirm appointment with Dr. Reddy. Thanks Claritza Sarah Hardin * Telephone Encounter - Josselyn Mayer APRN.CNP [...] you, Josselyn Mayer APRN.CNP documented in this encounterWooster [facility] Hospital08-05-2024 Telephone encounter Note * Telephone Encounter [...] establish care at the valve clinic kam [facility]08-05-2024 Telephone encounter Note* Telephone Encounter - [...] care with Nephrologists. Thank you, Josselyn Mayer APRN.TELEGRAPHIC TYPEWRITER INSTALLER [facility] Work Phone: 1(641) 712-150708-05-2024 Telephone encounter Note* Telephone Encounter - Chely Nicolas RN - 05/20/2024 9:59 AM EDT Left message on voicemail requesting pt return call for test results. Office phone number provided. Chely Nicolas RN [facility]08-05-2024 Telephone encounter Note* Telephone Encounter - Chely Nicolas RN - 05/20/2024 9:58 AM EDT ----- Message from Pam Reddy MD sent at 05/18/2024 8:44 AM EDT ----- Aortic stenosis need to establish care at the valve clinic kam [facility]08-02-20[facility] Telephone encounter Note* Telephone Encounter - Dorothy Joshua RPh - 05/17/2024 9:22 AM EDT [facility] Anticoagulation Episode Summary Anticoagulation Care Providers Provider Role Specialty Phone number Guanakito Reno MD [facility] [phone] Cal Mitchell is a 78 year old [...] ALLERGIES No Known Allergies 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 [facility]08-02-[facility] Miscellaneous Notes* Telephone Encounter - Dorothy Joshua RPh - 05/17/2024 9:22 AM EDT [facility] Anticoagulation Episode Summary Anticoagulation Care Providers Provider Role Specialty Phone number Guanakito Reno MD [facility] [phone] Cal Mitchell is a 78 year old [...] ALLERGIES No Known Allergies Indication for Warfarin: intermediate (current) use of anticoagulants Paroxysmal atrial fibrillation (hcc) Anticoagulation Episode Summary Current INR goal: 2.0-3.0 Assessment: INR result of 2.8is therapeutic Plan: Current Warfarin Dosing As of 05/17/2024 Full warfarin instructions: 5 mg every day Sent [employer] message Advised patient to continue current weekly dose as noted above Next home INR check scheduled on 05/30/2024 Dorothy Joshua RPh Clinical Pharmacist, Pharmacy Anticoagulation Clinic Pharmacy Anticoagulation Clinic Pager: [phone]. documented in this encounterWooster Community Hospital07-22-2024 Instructions* Patient Instructions* Corrina Lennon APRN.CNP - 05/06/2024 6:38 PM EDT Continue to try to get the stool sample. Continue the same medication. Schedule with nephrology (kidney doctor). Recheck with Dr. Reno in 2 months. documented in this encounterWooster Community Hospital07-22-2024 History of Present illness Narrative* Corrina [...] a fall. Was outside and grabbed the mrwi-ec-fdil and shook it for a few seconds [...] 8 hours as needed. blood sugar diagnostic (Local MarketersTOUCH ULTRA TEST) test strip Test blood sugar(s) one times daily. Dx: 250.00. Insulin: No Lancets (ONE TOUCH DELICA) [facility] [place]ancets Test blood sugar(s) one time daily. [...] as needed for worsening/no improvement. Corrina Lennon APRN.TELEGRAPHIC TYPEWRITER INSTALLER documented in this encounterW[facility]07-18-[facility]24 History of Present illness Narrative* Jody [...] PATIENT PRESENTS WITH AN IMPLANTABLE OR ATTACHED WIRE TRANSFER CLERK: No RADIOLOGY DEPARTMENT: Ultrasound PERIPHERAL IV DATA: Not applicable SIGNED BY: Jody Queen RDMS May 02, 2024 10:49 AM documented in this encounterWooster [facility] Hospital07-15-2024 Telephone encounter Note * Telephone Encounter - Stephany Graves MA - 04/29/2024 9:48 AM EDT Spoke with daughter. She stated she was suppose to call the local supervisor inspection and testing but didn't have the number and then forgot to call office to get it. Also she is not able to log into the [employer] account, states she forgot password. I have sent number for Dr. Khan to pt home along with mychart number so she can get [employer] account fixed and call to set up his appt with supervisor inspection and testing. Pt needs refill of Lipitor sent to [facility]. Stephany Graves MA [facility]07[facility]24 Miscellaneous Notes* Telephone Encounter - Stephany Graves MA - 04/29/2024 9:48 AM EDT Spoke with daughter. She stated she was suppose to call the local supervisor inspection and testing but didn't have the number and then forgot to call office to get it. Also she is not able to log into the [employer] account, states she forgot password. I have sent number for Dr. 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 Pt needs refill of Lipitor sent to [...] nephrology? Was ordered previously. 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 documented in this encounterWooster [facility] Hospital07-05-2024 Telephone encounter Note * Telephone Encounter - Geovanna Hinds MA - 04/19/2024 4:14 PM EDT Left message for patient to return call. Geovanna Hinds Ma [facility]07-05-[facility] Telephone encounter Note* Telephone Encounter - Guanakito Reno MD - 04/19/2024 3:46 PM EDT Anemia is stable. I still need an ifobt done since he is on blood thinners to rule out gi blood loss. It may well be related to his kidneys. They are stable but worse. Did he get set up with nephrology? Was ordered previously. [facility] Telephone encounter Note* Telephone Encounter - Corrina Lennon APRN.CNP - 04/08/2024 3:45 PM EDT Pt aware. Corrina Lennon APRN.CNP [facility]-24[facility] Miscellaneous Notes* Telephone Encounter - Corrina Lennon APRN.CNP - 04/08/2024 3:45 PM EDT Pt aware. Corrina Lennon APRN.TELEGRAPHIC TYPEWRITER INSTALLER * Telephone Encounter - Josselyn Barrow LPN [...] two weeks. See nephrology documented in this encounterWooster [facility] Hospital06-24-2024 Telephone encounter Note * Telephone Encounter - Alejandro Molina RPh - 04/08/2024 3:36 PM EDT [facility] Anticoagulation Episode Summary Anticoagulation Care Providers Provider Role Specialty Phone number Guanakito Reno MD [facility] [phone] Cal Mitchell is a 78 year old [...] Pharmacy Anticoagulation Clinic Pharmacy Anticoagulation Clinic Pager: [phone]. [facility] Miscellaneous Notes* Telephone Encounter - Alejandro Molina RPh - 04/08/2024 3:36 PM EDT [facility] Anticoagulation Episode Summary Anticoagulation Care Providers Provider Role Specialty Phone number Guanakito Reno MD [facility] [phone] Cal Mitchell is a 78 year old [...] Pharmacy Anticoagulation Clinic Pharmacy Anticoagulation Clinic Pager: [phone]. documented in this encounterWooster Community Hospital06-24-2024 Instructions* Patient Instructions* Corrina Lennon APRN.CNP - 04/08/2024 3:11 PM EDT Continue the same medication. Get the repeat labs in 2 weeks. Get the echo, carotid ultrasound, kidney ultrasound as planned. Schedule w/ nephrology. Schedule back in 1 month for recheck. documented in this encounterWooster Community Hospital06-24-2024 History of Present illness Narrative* Corrina [...] 8 hours as needed. blood sugar diagnostic (Hubba ULTRA TEST) test strip Test blood sugar(s) one times daily. Dx: 250.00. Insulin: No Lancets (ONE TOUCH DELICA) [facility] lancets Test blood sugar(s) one time daily. [...] agrees with the plan. documented in this encounterWooster [facility] Hospital06-22-2024 Telephone encounter Note * Telephone Encounter [...] Diana Jimenez, SamirD, MPH Anticoagulation Clinic Pharmacist [phone] [facility] Miscellaneous Notes* Telephone Encounter - Nabila Jimenez RP - 04/06/2024 4:33 PM EDT Called and [...] Diana Jimenez PharmD, MPH Anticoagulation Clinic Pharmacist [phone] * Telephone Encounter - Nabila Jimenez RP - 04/06/2024 3:49 PM EDT Called and LM for patient and sent [employer] referenced in VM (though patient has not logged into [employer] since December). Patient was asked to call/page PAC at next convenience to confirm receipt of message Will follow up on Monday and expect next INR on that date Diana Jimenez PharmD, MPH Anticoagulation Clinic Pharmacist [phone] * Telephone Encounter - Yamilka Heath RN - 04/04/2024 1:14 PM EDT Alana Perez calling in INR result today (04/04.) result has been addressed below. Apurva Heath RN Pharmacy Anticoagulation Clinic * Telephone Encounter - Jimmy Carrizales formerly [facility] - 04/04/2024 12:26 PM EDT [facility] Anticoagulation Episode Summary Anticoagulation Care Providers Provider Role Specialty Phone number Guanakito Reno MD [facility] [phone] Cal Mitchell is a 78 year old [...] ALLERGIES No Known Allergies Indication for Warfarin: intermediate (current) use of anticoagulants Paroxysmal atrial fibrillation [...] if no return call tomorrow Jimmy Carrizales formerly [facility] Clinical Pharmacist, Pharmacy Anticoagulation Clinic Pharmacy Anticoagulation Clinic Pager: [phone]. documented in this encounterWooster [facility] Hospital06-22-2024 Telephone encounter Note * Telephone Encounter - Nabila Jimenez RPh - 04/06/2024 3:49 PM EDT Called and LM for patient and sent [employer] referenced in VM (though patient has not logged into [employer] since December). Patient was asked to call/page PAC at next convenience to confirm receipt of message Will follow up on Monday and expect next INR on that date Diana Jimenez, PharmD, MPH Anticoagulation Clinic Pharmacist [phone] [facility] Telephone encounter Note* Telephone Encounter - Josselyn Barrow LPN - 04/05/2024 4:25 PM EDT Has visit scheduled with Corrina on Monday will route to their pool. If he keeps that appt can you please close for us? Thank you. [facility] Telephone encounter Note* Telephone Encounter - Carolina Alba MA - 04/05/2024 4:19 PM EDT No answer. Left detailed message stating we were calling in regards to results and needing to discuss a few things. Advised to return call. Carolina Alba MA [facility] Telephone encounter Note* Telephone Encounter - Jonelle Worley LPN - 04/05/2024 10:41 AM EDT Phoned patient left message to return call and ask to speak to a nurse. [facility] Telephone encounter Note* Telephone Encounter - Guanakito Reno MD - 04/05/2024 10:21 AM EDT Anemia is stable. May be related to his kidneys. Renal function continues to be slightly worse. Get renal us as ordered. Check ifobt. Recheck labs in two weeks. See nephrology [facility] Telephone encounter Note* Telephone Encounter - Yamilka Heath RN - 04/04/2024 1:14 PM EDT Alana Perez calling in INR result today (04/04.) result has been addressed below. 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 [facility] Instructions* Patient Instructions* Guanakito Reno MD - 03/26/2024 5:00 PM EDT Stop lisinopril hctz Start lisinopril. Call if any shortness of breath or edema. Weigh daily. Call us if you gain more than 3-4 lbs in a 24 hour period Get carotid ultrasound Recheck labs end of this week or early next. documented in this encounterWooster [facility] Hospital06-11-2024 History of Present illness Narrative* Guanakito [...] mg daily. Needs 30 day supply to [employer] while waiting for shipment from [employer]. No myalgias HTN: Continues on Zestoretic 20-12.5 [...] ICD10: G30.9, F01.50, F02.80 - stable. 9. intermediate (current) use of anticoagulants - ICD9: V58.61, [...] two weeks or prn. documented in this encounterWooster [facility] Hospital06-10-2024 History of Present illness Narrative* Pam Reddy MD - 03/25/2024 5:19 PM EDT Images from the original note were not included. Pam Reddy MD Interventional Cardiology [address] [place] [address] [phone] Chief Complaint Patient presents with: Follow Up [...] 150 Strip 3 Lancets (ONE TOUCH DELICA) [facility] lancets Test blood sugar(s) one time daily. [...] to correct any errors. documented in this encounterWooster [facility] Hospital05-24-2024 History of Present illness Narrative* Melania Galindo RN - 03/08/2024 8:42 AM EDTSummary: Medication adherence and suspected condition review per request of payor ACM LUIS RN Reason for review or outreach: Medication Adherence Review Details: Cholesterol and Hypertension Suspect Condition Review per request of payer= [facility]/REQUESTED ACTION: Summary / Findings: Atorvastatin 60 mg tablet last renewed 09/15/24(100 day quantity) Lisinopril/HCTZ tablet 20mg-12.5mg last renewed 10/17/23 (100 day quantity) Patient identified by name and date of . Patient Attributed To: [employer] Payer: [facility] Action Taken: Data submitted to [employer] message to patient Notation made to upcoming appointment notes requesting provider follow up Contact made with patient: No, Chart review only. Melania Galindo RN documented in this encounterWooster [facility] Hospital05-23-2024 Telephone encounter Note * Telephone Encounter - Jimmy Carrizales formerly [facility] - 03/07/2024 11:54 AM EDT [facility] Anticoagulation Episode Summary Anticoagulation Care Providers Provider Role Specialty Phone number Guanakito Reno MD [facility] [phone] Cal Mitchell is a 78 year old [...] ALLERGIES No Known Allergies Indication for Warfarin: intermediate (current) use of anticoagulants Paroxysmal atrial fibrillation [...] Pharmacy Anticoagulation Clinic Pharmacy Anticoagulation Clinic Pager: [phone]. [facility] Miscellaneous Notes* Telephone Encounter - Jimmy Carrizales RPh - 03/07/2024 11:54 AM EDT [facility] Clinic Anticoagulation Episode Summary Anticoagulation Care Providers Provider Role Specialty Phone number Guanakito Reno MD [facility] [phone] Cal Mitchell is a 78 year old [...] ALLERGIES No Known Allergies Indication for Warfarin: intermediate (current) use of anticoagulants Paroxysmal atrial fibrillation [...] INR check scheduled on 03/21/2024 Jimmy Carrizales formerly [facility] Clinical Pharmacist, Pharmacy Anticoagulation Clinic Pharmacy Anticoagulation Clinic Pager: [phone]. documented in this encounterW[facility]05-01-2024 Telephone encounter Note * Telephone Encounter - Ruthie Cuevas RP - 02/14/2024 9:04 AM EDT [facility] Anticoagulation Episode Summary Anticoagulation Care Providers Provider Role Specialty Phone number Guanakito Reno MD [facility] [phone] Cal Mitchell is a 78 year old [...] ALLERGIES No Known Allergies Indication for Warfarin: intermediate (current) use of anticoagulants Paroxysmal atrial fibrillation [...] Pharmacy Anticoagulation Clinic Pharmacy Anticoagulation Clinic Pager: [phone]. 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 documented in this encounterWo[facility] Hospital04-03-2024 Miscellaneous Notes* Telephone Encounter - Darrell [...] Thank you. Betzy Colvin. documented in this encounterWooster [facility] Hospital04-03-2024 Miscellaneous Notes* Telephone Encounter - Betzy Colvin - 01/17/2024 3:22 PM EDT Patient's daughter calling to request medication that is on patient list pioglitazone (ACTOS) 15 mg tablet [facility]. documented in this encounterWooster [facility] Hospital04-01-2024 Miscellaneous Notes* Telephone Encounter - Alejandro Molina formerly [facility] - 01/15/2024 10:32 AM EDT [facility] Anticoagulation Episode Summary Anticoagulation Care Providers Provider Role Specialty Phone number Guanakito Reno MD [facility] Family [facility] [phone] Cal Mitchell is a 78 year old [...] instructed to call Pharmaceutical Anticoagulation Clinic at [phone] with any questionsor concerns. Alejandro Molina RPh Clinical Pharmacist, Pharmacy Anticoagulation Clinic Pharmacy Anticoagulation Clinic Pager: [phone] documented in this encounterWooster [facility] Hospital03-08-2024 Instructions* Patient Instructions* Carolina Landeros APRN.CNS - 12/22/2023 3:30 PM EST 1) Telfa dressing change daily 2) Letter for [facility] 3) Follow up in 4) Melatonin 3mg qhs and may repeat once through night if needed documented in this encounterWooster Community Hospital03-08-2024 History of Present illness Narrative* Carolina [...] 250.00. Insulin: No Lancets (ONE TOUCH DELICA) [facility] lancets Test blood sugar(s) one time daily. [...] as needed for worsening/no improvement. Carolina Landeros APRN.CUSTOMS IMPORT SPECIALIST The patient indicates understanding of these issues and agrees with the plan. documented in this encounterWooster [facility] Hospital03-07-2024 Miscellaneous Notes* Telephone Encounter - Teresa [...] 7. TETANUS: 04/22/21 Protocols used: Cuts and [id number] documented in this encounterWooster [facility] Hospital03-07-2024 Miscellaneous Notes* Telephone Encounter - Jimmy Carrizales formerly [facility] - 12/21/2023 9:03 AM EST [facility] Anticoagulation Episode Summary Anticoagulation Care Providers Provider Role Specialty Phone number Guanakito Reno MD [facility] Family [facility] [phone] Cal Mitchell is a 78 year old [...] ALLERGIES No Known Allergies Indication for Warfarin: intermediate (current) use of anticoagulants Paroxysmal atrial fibrillation (hcc) Anticoagulation Episode Summary Current INR goal: 2.0-3.0 Assessment: INR result of 2.6 is therapeutic Plan: Current Warfarin Dosing As of 12/21/2023 Full warfarin instructions: 7.5 mg every Tue; 5 mg all other days Left voice message Advised patient to continue current weekly dose as noted above Next home INR check scheduled on 01/04/2024 Jimmy Carrizales formerly [facility] Clinical Pharmacist, Pharmacy Anticoagulation Clinic Pharmacy Anticoagulation Clinic Pager: [phone]. documented in this encounterWooster [facility] Hospital02-19-2024 Miscellaneous Notes* Telephone Encounter - Daniel (Marketing Recruiter)Ashley - 12/04/2023 11:53 AM EST PATIENT CALL Received call from Summer with [facility] to report home meter result for patient. formerly [facility] hasalready addressed this result (see below); nothing further needed at this time. Ashley Sanchez CPhT (Appointment Specialist) Pharmacy Anticoagulation Clinic * Telephone Encounter - Alejandro Molina RPh - 12/04/2023 9:44 AM EST [facility] Pharmacy Anticoagulation Clinic Anticoagulation Episode Summary Anticoagulation Care Providers Provider Role Specialty Phone number Guanakito Reno MD [facility] [phone] Cal Mitchell is a 78 year old [...] instructed to call Pharmaceutical Anticoagulation Clinic at [phone] with any questionsor concerns. 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 Ruthie Cuevas formerly [facility] Clinical Pharmacist, Pharmacy Anticoagulation Clinic Pharmacy Anticoagulation Clinic Pager: [phone]. documented in this encounterWooster [facility] Hospital11-21-2023 History of Present illness Narrative* Mouna Vallecillo RN - 09/05/2023 1:48 PM ESTSummary: Medication Adherence review per request of payer ACM LUIS RN Action/FYI: Medication Adherence review completed per request of payer. NO PROVIDER ACTION REQUIRED Patient identified by name and date of . Patient Attributed To: [facility] Payer: [employer] Reason for review or outreach: Medication Adherence Medication Adherence Review Details: Diabetes Summary / Findings: GLIMEPIRIDE -- Refill Due - 07/18/2023 ATORVASTATIN -- Refill Due - 08/21/2023 Pharmacy - [facility] - Action Taken: Data submitted to [employer] message to patient Contact made with patient: No, Chart review only. documented in this encounterWooster [facility] Hospital11-07-2023 Miscellaneous Notes* Telephone Encounter - Twin Cole RPh - 08/22/2023 9:46 AM EST [facility] Anticoagulation Episode Summary Anticoagulation Care Providers Provider Role Specialty Phone number Guanakito Reno MD [facility] [phone] Cal Mitchell is a 78 year old [...] Pharmacy Anticoagulation Clinic Pharmacy Anticoagulation Clinic Pager: [phone]. documented in this encounterWooster [facility] Hospital11-01-2023 Miscellaneous Notes* Telephone Encounter - Gerardo Fountain LPN - 08/16/2023 11:45 AM EDT January advised of same. Gerardo Fountain LPN * [...] states "one." Please phone Elly with reply: [phone] Copied and pasted provider's message from previous encounter: Sugars are really good. Stop his glimepiride. Call sugars in two weeks. His kidney function is worse, recheck labs in one . Make sure drinking adequate fluids. documented in this encounterWo[facility] Hospital10-31-2023 Miscellaneous Notes* Telephone Encounter - Niels [...] sure drinking adequate fluids. documented in this encounterWooster [facility] Hospital10-30-2023 History of Present illness Narrative* Guanakito [...] 8 hours as needed. blood sugar diagnostic (Local MarketersTOUCH ULTRA TEST) test strip Test blood sugar(s) one times daily. Dx: 250.00. Insulin: No Lancets (ONE TOUCH DELICA) [facility] lancets Test blood sugar(s) one time daily. [...] YR, HIGH DOSE, QUADRIVALENT (FLUZONE HIGH-DOSE) - [employer] COVID-19 VACCINE (2022- SEASON) AGE 12+ YR [...] N18.31 Guanakito Reno MD documented in this encounterWooster [facility] Hospital10-11-2023 Miscellaneous Notes* Telephone Encounter - Ruthie Cuevas formerly [facility] - 07/26/2023 4:50 PM EDT [facility] Anticoagulation Episode Summary Anticoagulation Care Providers Provider Role Specialty Phone number Guanakito Reno MD [facility] [phone] Cal Mitchell is a 78 year old [...] ALLERGIES No Known Allergies 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 documented in this encounterWooster [facility] Hospital09-19-2023 Miscellaneous Notes* Telephone Encounter - Pily Cuevas - 07/04/2023 3:50 PM EDT Patient needs to have a gap supply sent to [facility] as well please send at least a weeks worth. Patient has been identified by name and date of : Yes Requested Prescriptions Pending Prescriptions Disp Refills lisinopril-hydroCHLOROthiazide (ZESTORETIC) 20-12.5 mg per tablet 90 tablet 0 Sig: Take 1 tablet by mouth every morning. RX INSTRUCTIONS: Patient aware RX escripted to mail away pharmacy. No need to notify patient. Pily Horne documented in this encounterWooster [facility] Hospital09-12-2023 History of Present illness Narrative* Lizette Cardenas RN - 2023 3:08 PM EDT ACM LUIS RN Action/FYI: Medication Adherence review completed per request of payer. NO PROVIDER ACTION REQUIRED Please see requests in the Summary/Findings section below Patient identified by name and date of . Patient Attributed To: QAE Payer: [facility] Reason for review or outreach: Medication Adherence Medication Adherence Review Details: Hypertension Summary / Findings: Lisinopril was due for refill on: 05/16/23 at [facility] Action Taken: Data submitted to [employer] message to patient Other Contact made with patient: No, Chart review only. Signature: Lizette Theresa, RN documented in this encounterWooster [facility] Hospital08-07-2023 Miscellaneous Notes* Telephone Encounter - Alejandro Molina RPh - 05/22/2023 10:12 AM EDT [facility] Anticoagulation Episode Summary Anticoagulation Care Providers Provider Role Specialty Phone number Guanakito Reno MD Responsible Family Medicine [phone] Cal Mitchell is a 77 year old [...] instructed to call [facility] at [phone] with any questionsor concerns. Alejandro Molina RPh Clinical Pharmacist, Pharmacy Anticoagulation Clinic Pharm[facility] Pager: [phone] documented in this encounterWooster Community Hospital07-10-2023 Miscellaneous Notes* Telephone Encounter - Alejandro Molina RPh - 04/24/2023 10:04 AM EDT [facility] Anticoagulation Episode Summary Anticoagulation Care Providers Provider Role Specialty Phone number Guanakito Reno MD [facility] [phone] Cal Mitchell is a 77 year old [...] Pharmacy Anticoagulation Clinic Pharmacy An[facility] Pager: [phone]. documented in this encounterWooster Community Hospital07-05-2023 Miscellaneous Notes* Telephone Encounter - Anna [...] patient. Leslie Perez Pss documented in this encounterWooster Community Hospital06-13-2023 Miscellaneous Notes* Telephone Encounter - Twin Cole formerly [facility] - 03/28/2023 3:22 PM EDT [facility] Anticoagulation Episode Summary Anticoagulation Care Providers Provider Role Specialty Phone number Guanakito Reno MD [facility] Family Medicine [phone] Cal Mitchell is a 77 year old [...] Pharmacy Anticoagulation Clinic Pharmacy An[facility] Clinic Pager: [phone]. documented in this encounterWooster Community Hospital05-01-2023 History of Present illness Narrative* Dory Mayers RN - 02/13/2023 4:13 PM EDT EVENT MONITOR DISPOSABLE PATCH INSTRUCTIONS Patient Name: Cal Lua [facility] Number: [id number] Skin prepped and cleansed with alcohol Patch secured to prepped area Monitor Activated Serial #: [id number] Patient Instructed: Prescribed order timeframe Bathing guidelines Usage of event button and diary documentation Return of monitor at the end of prescribed order Call with problems [phone] or [phone] ext. [phone] Patient expresses a good understanding of instructions Dory Mayers RN * Pam Reddy MD - 02/13/2023 4:01 PM EDT Images from the original note were not included. Pam Reddy MD Interventional Cardiology [facility] [address], [place] [address] [phone] Chief Complaint Patient presents with: Established Patient [...] mL INTRAVENOUS DIRECTED PRN Pam Reddy MD perflutren lipid microspheres 1.3 mL [...] to correct any errors. documented in this encounterWooster Community Hospital04-24-2023 History of Present illness Narrative* Guanakito [...] 250.00. Insulin: No Lancets (ONE TOUCH DELICA) [facility] lancets Test blood sugar(s) one time daily. [...] vaccine - ICD9: V04.89, ICD10: Z23 - Xierkang-BIONTCocodrilo Dog COVID-19 BIVALENT VACCINE, AGE 12+ YR Guanakito Reno MD documented in this encounterWooster Community Hospital04-03-2023 Miscellaneous Notes* Telephone Encounter - Corrina [...] notify patient. 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 Jimmy Carrizales bobbi Clinical Pharmacist, Pharmacy Anticoagulation Clinic Pharmacy Anticoagulation Clinic Pager: [phone]. 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 * Telephone Encounter - Alejandro Molina RPh - 01/09/2023 4:34 PM EDT Patient was due to test INR today. Will continue to monitor for results. documented in this encounterWooster Community Hospital03-06-2023 Miscellaneous Notes* Telephone Encounter - Alejandro Molina RPh - 12/19/2022 10:37 AM EST [facility] Anticoagulation Episode Summary Anticoagulation Care Providers Provider Role Specialty Phone number Guanakito Reno MD [facility] [phone] Cal Mitchell is a 77 year old [...] 12/19/2022 Full warfarin instructions: 7.5 mg every e, Kaye; 5 mg all other days Left voice message Advised patient to continue current weekly dose as noted above Next INR check due on 01/09/2023 Patient instructed to call [facility] at [phone] with any questionsor concerns. Alejandro Molina RPh Clinical Pharmacist, Pharmacy Anticoagulation Clinic Pharmacy Anticoagulation Clinic Pager: [phone] documented in this encounterWooster Community Hospital02-13-2023 Miscellaneous Notes* Telephone Encounter - Alejandro Molina RPh - 11/28/2022 10:18 AM EST [facility] Anticoagulation Episode Summary Anticoagulation Care Providers Provider Role Specialty Phone number Guanakito Reno MD [facility] Family Medicine [phone] Cal Mitchell is a 77 year old [...] instructed to call [facility] at [phone] with any questionsor concerns. Alejandro Molina RPh Clinical Pharmacist, Pharmacy Anticoagulation Clinic Pharmacy Anticoagulation Clinic Pager: [phone] documented in this encounterWooster Community Hospital02-03-2023 Miscellaneous Notes* Telephone Encounter - Kamran Ayon RPh - 11/18/2022 12:49 PM EST Patient due to test INR today. Will continue to monitor for results. Kamran Ayon RPh documented in this encounterWooster Community Hospital01-20-2023 Miscellaneous Notes* Telephone Encounter - Kamran Ayon RPh - 11/04/2022 8:02 AM EST [facility] Anticoagulation Episode Summary Anticoagulation Care Providers Provider Role Specialty Phone number Guanakito Reno MD [facility] Internal Medicine [phone] Cal Mitchell is a 77 year old [...] ALLERGIES No Known Allergies Indication for Warfarin: intermediate (current) use of anticoagulants Paroxysmal atrial fibrillation (hcc) Anticoagulation Episode Summary Current INR goal: 2.0-3.0 Assessment: INR result of 2.2 is therapeutic Plan: Current Warfarin Dosing As of 11/04/2022 Full warfarin instructions: 7.5 mg every Mon, Kaye; 5 mg all other days; Starting 11/04/2022 Sent [employer] message Advised patient to continue current weekly dose as noted above Next home INR check scheduled on 11/18/2022 Kamran Ayon RPh Clinical Pharmacist, Pharmacy Anticoagulation Clinic Pharmacy Anticoagulation Clinic Pager: [phone]. documented in this encounterWooster Community Hospital01-17-2023 Miscellaneous Notes* Telephone Encounter - Twin Cole RPh - 11/01/2022 10:30 AM EST Patient due to test INR today. Will continue to monitor for results. 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 * Telephone Encounter - Ruthie Cuevas RPh - 10/19/2022 4:33 PM EST Patient was due to test INR today will continue to monitor for results. Ruthie Cuevas PharmD documented in this encounterWooster Community Hospital12-20-2022 History of Present illness Narrative* Alondra Prescott DO - 10/04/2022 10:58 AM EST This office note has been dictated. Alondra Prescott DO * Alondra Prescott DO - 10/04/2022 12:00 AM EST NAME: CAL MITCHELL [facility] NO: [id number] DATE OF SERVICE: 10/04/2022 Subjective: Mr. Mitchell [...] repeat imaging, or sooner with any concerns. Dagoberto Gibbons/089 Audio #: [id number] Date Dictated: 10/04/2022 10:13:59 Date Typed: 10/05/2022 14:12:47 Date Revised: documented in this encounterWooster Community Hospital12-15-2022 Miscellaneous Notes* Telephone Encounter - Jimmy Carrizales, formerly [facility] - 09/29/2022 4:38 PM EST [facility] Anticoagulation Episode Summary Anticoagulation Care Providers Provider Role Specialty Phone number Guanakito Reno [facility] [phone] Cal Mitchell is a 77 year old [...] ALLERGIES No Known Allergies Indication for Warfarin: intermediate (current) use of anticoagulants Paroxysmal atrial fibrillation [...] Pharmacy Anticoagulation Clinic Pharmacy Anticoagulation Clinic Pager: [phone]. * Telephone Encounter - Ruben Cunningham (Marketing Recruiter) - 09/29/2022 2:23 PM EST PATIENT CALL [...] stated she lets blocked calls go to [employer] Rebel[employer]American Board of Addiction Medicine (ABAM). She asked if she needed to be near the meterto report the results over the phone to [facility]--advised her I am not sure. Elly can be reached at [phone] Ruben Cunningham (Marketing Recruiter) * Telephone Encounter - Ruthie Cuevas RPh - 09/28/2022 9:49 AM EST Cal Lua Paula was called and [...] PharmD Pharmacy Anticoagulation Clinic documented in this encounterWooster Community Hospital12-09-2022 Miscellaneous Notes* Telephone Encounter - Yasemin [...] and advise. Yasemin Cook documented in this encounterWooster Community Hospital12-01-2022 Miscellaneous Notes* Telephone Encounter - Yamilka [...] and not patient's name. Messaged Bonita at [facility]. 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 Paroxysmal atrial fibrillation (hcc) Anticoagulation Episode Summary Current INR goal: 2.0-3.0 Assessment: INR result of is SUBtherapeutic due to: unknown cause - did not speak to patient Plan: Current Warfarin Dosing As of 08/22/2022 Full warfarin instructions: 09/15: 7.5 mg; Otherwise 7.5 mg every Tue; 5 mg all other days; Orpwhhoq30/7/2022 Called and spoke to patient/caregiver - per demographics we only have daughter's phone number but no identifier Advised patient to increase dose for 1 day only then resume weekly regimen Next home INR check scheduled on 09/21/2022 Jimmy Carrizales formerly [facility] Clinical Pharmacist, Pharmacy Anticoagulation Clinic Pharmacy Anticoagulation Clinic Pager: [phone]. * Telephone Encounter - Alejandro Molina RPh [...] to monitor for results. documented in this encounterWooster Community Hospital11-23-2022 History of Present illness Narrative* Lizette Cardenas RN - 09/07/2022 6:24 AM EST ACM LUIS RN Action/FYI: Medication Adherence review completed per request of [facility]. NO PROVIDER ACTION REQUIRED Lisinopril/Hctz 20-12.5mg Last filled: 05/21/22 Days Supply: 90 Refill Due: 08/19/22 Pharmacy: [facility] Atorvastatin 80mg Last filled: 03/20/22 Days Supply: 90 Refill Due: 06/28/22 Pharmacy: [facility] MY CHART MESSAGE SENT Patient identified by name and date of . Patient Attributed To: E Payer: [facility] Reason for review or outreach: Medication Adherence Medication Adherence Review Details: Cholesterol and Hypertension Summary / Findings: As per above Action Taken: Data submitted to [employer] message to patient Contact made with patient: No, Chart review only. Signature: Lizette Cardenas RN documented in this encounterWooster Community Hospital10-31-2022 History of Present illness Narrative* Pam Reddy MD - 08/15/2022 3:48 PM EDT Images from the original note were not included. Pam Reddy MD Interventional Cardiology [facility] [address], [place] [address] [phone] Chief Complaint Patient presents with: Consult HISTORY [...] airway obstruction, not elsewhere classified 10/20 Diabetes ([facility]) Diverticulosis of colon (without mention [...] 150 Strip 3 Lancets (ONE TOUCH DELICA) [facility] lancets Test blood sugar(s) one time daily. [...] to correct any errors. documented in this encounterWooster Community Hospital10-17-2022 Miscellaneous Notes* Telephone Encounter - Alejandro Molina formerly [facility] - 08/01/2022 9:52 AM EDT [facility] Anticoagulation Episode Summary Anticoagulation Care Providers Provider Role Specialty Phone number Guanakito Reno MD [facility] [phone] Cal Mitchell is a 77 year old [...] instructed to call [facility] at [phone] with any questionsor concerns. Alejandro Molina RPh Clinical Pharmacist, Pharmacy Anticoagulation Clinic Pharmacy Anticoagulation Clinic Pager: [phone] documented in this encounterWooster Community Hospital10-07-2022 Miscellaneous Notes* Telephone Encounter - Darrell [...] advise. Darrell Meyer LPN documented in this encounterWooster Community Hospital09-20-2022 Miscellaneous Notes* Telephone Encounter - Twin Cole RPh - 07/05/2022 9:30 AM EDT [facility] Anticoagulation Episode Summary Anticoagulation Care Providers Provider Role Specialty Phone number Guanakito Reno MD [facility] [phone] Cal Mitchell is a 77 year old [...] Pharmacy Anticoagulation Clinic Pharmacy Anticoagulation Clinic Pager: [phone]. * Telephone Encounter - Alejandro Molina RPh - 07/04/2022 3:42 PM EDT Cal Mitchell was called and reminded to test INR today or as soon as possible. * Telephone Encounter - Alejandro Molina RPh - 2022 4:11 PM EDT Patient was due to test INR today. Will continue to monitor for results. documented in this encounterWooster Community Hospital08-30-2022 Miscellaneous Notes* Telephone Encounter - Twin Cole RPh - 06/14/2022 9:14 AM EDT [facility] Anticoagulation Episode Summary Anticoagulation Care Providers Provider Role Specialty Phone number Guanakito Reno MD [facility] [phone] Cal Mitchell is a 76 year old [...] Pharmacy Anticoagulation Clinic Pharmacy Anticoagulation Clinic Pager: [phone]. * Telephone Encounter - Val Oliver RPh - 06/13/2022 9:09 AM EDT [employer] message sent as a reminder to test INR RAISSA. * Telephone Encounter - Alejandro Molina RPh - 06/06/2022 4:50 PM EDT Patient was due to test INR today. Will continue to monitor for results. documented in this encounterWooster Community Hospital08-30-2022 History of Present illness Narrative* Nirmala Lim MA - 06/14/2022 9:03 AM EDT [employer]RE[employer] Action/FYI Called and left a message to call [phone], to discuss health maintenance items that are [...] Care Gap or Scheduling/Wellness visits Payer: Payor: [facility] / Plan: UHC AARP MEDICARE HMO [...] 14, 2022 9:05 AM documented in this encounterWooster Community Hospital08-04-2022 Miscellaneous Notes* Telephone Encounter - Huong [...] 05/19/2022 11:56 AM EDT Pharmacy verified in Epic Patient has been identified by name and [...] advise. Yasemin Garcia Pss documented in this encounterWooster Community Hospital08-01-2022 Miscellaneous Notes* Telephone Encounter - Alejandro Molina formerly [facility] - 05/16/2022 11:54 AM EDT [facility] Anticoagulation Episode Summary Anticoagulation Care Providers Provider Role Specialty Phone number Guanakito Reno MD [facility] Family Practice [phone] Cal Mitchell is a 76 year old [...] instructed to call [facility] at [phone] with any questionsor concerns. Alejandro Molina formerly [facility] Clinical Pharmacist, Pharmacy Anticoagulation Clinic Pharmacy Anticoagulation Clinic Pager: [phone] documented in this encounterWooster Community Hospital07-11-2022 Miscellaneous Notes* Telephone Encounter - Val Oliver RP - 04/25/2022 7:56 AM EDT Last INR due around 04/18. [employer] message sent as a reminder to test INR RAISSA. PT INR (no units) Date Value 01/24/2022 2.1 biotel 10/26/2021 2.1 (Biotel) 03/04/2021 2.4 INR Home CoaguChek (no units) Date Value 04/02/2022 2.2 03/09/2022 2.6 02/10/2022 3.4 documented in this encounterWooster Community Hospital06-15-2022 Miscellaneous Notes* Telephone Encounter - Ruthie [...] either. Ruthie Cuevas PharmD documented in this encounterWooster Community Hospital06-01-2022 Miscellaneous Notes* Telephone Encounter - Nicki Nieto - 03/16/2022 10:46 AM EDT Patient is scheduled for an appt on 03/22/22 in [place]. Did call the patient to see if any external imagine has been complete, left VM to call the office Or record indicates no testing has been completed since 2019 Would you like an updated carotid US Order pending please sign if correct Thanks documented in this encounterWooster Community Hospital05-25-2022 Miscellaneous Notes* Telephone Encounter - Ruthie Cuevas RPh - 03/09/2022 4:08 PM EDT [facility] Anticoagulation Episode Summary Anticoagulation Care Providers Provider Role Specialty Phone number Guanakito Reno MD 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 Plan: Called and spoke to patient/caregiver Advised patient to continue current weekly dose Next home INR check scheduled on 03/23/2022 Ruthie Cuevas RPh Clinical Pharmacist, Pharmacy Anticoagulation Clinic Pharmacy Anticoagulation Clinic Pager: [phone] . documented in this encounterWooster Community Hospital05-05-2022 Miscellaneous Notes* Telephone Encounter - Jazmyn Garcia RPh - 02/17/2022 1:17 PM EDT Patient due to test INR today. Will continue to monitor for results. Jazmyn Garcia RPh documented in this encounterWooster Community Hospital04-29-2022 Miscellaneous Notes* Telephone Encounter - Denisse Hutchinson RPh - 02/11/2022 8:21 AM EDT [facility] Anticoagulation Episode Summary Anticoagulation Care Providers Provider Role Specialty Phone number Guanakito Reno MD [facility] [phone] Cal Mitchell is a 76 year old [...] ALLERGIES No Known Allergies Indication for Warfarin: intermediate (current) use of anticoagulants Paroxysmal atrial fibrillation (hcc) Anticoagulation Episode Summary Current INR goal: 2.0-3.0 Assessment: INR result of is SUPRAtherapeutic due to: unknown cause - did not speak to patient Plan: Sent [employer] message Advised patient to decrease dose for 2 days only then resume weekly regimen Next home INR check scheduled on 02/17/2022 Denisse Hutchinson RPh Clinical Pharmacist, Pharmacy Anticoagulation Clinic Pharmacy Anticoagulation Clinic Pager: [phone] . * Telephone Encounter - Twin Cole RPh - 02/08/2022 4:00 PM EDT Patient due to test INR today. Will continue to monitor for results. Twin Cole RPh documented in this encounterWooster Community Hospital04-12-2022 Miscellaneous Notes* Telephone Encounter - Twin Cole RPh - 01/25/2022 9:15 AM EDT [facility] Anticoagulation Episode Summary Anticoagulation Care Providers Provider Role Specialty Phone number Guanakito Reno MD [facility] [phone] Cal Mitchell is a 76 year old [...] Pharmacy Anticoagulation Clinic Pharmacy Anticoagulation Clinic Pager: [phone] . documented in this encounterWooster Community Hospital04-06-2022 History of Present illness Narrative* Guanakito [...] No. Dementia: Had previously been following with [facility]. Last visit 08/2020. Doesn't have anything further scheduled. Doesn't really want to go to [place], but appears last visit was distance. Does not drive. Lives w/ daughter. Stays up late at night and sleep during the day. A. Fib: Chronic anticoagulation. Denies any hematochezia/melena. Daughter does home checks. Follows w/ pharmacy. occ fall with no significant injury. Had been following with [place] [facility], but unsure when he was last seen there. Diabetes. Does not check home blood sugars. Reports compliance w/ medication. Carotid artery stenosis. Follows w/ vascular. Last visit 10/20/20. Recommended follow-up with cardiology and then Dr. Devries in [place]. He did have echo done. Unsure if he followed up with [place] [facility]. Per note, they wanted to establish [...] Abs Lymph 1.00 - 4.00 k/uL 1.65 [place]% % 7.4 Abs [place] <0.87 k/uL 0.53 [place]% % 8.2 Abs [...] Negative Negative Ketones, Urine Negative Negative Specific [place], Ur 1.005 - 1.030 1.016 Hemoglobin/Blood,Ur Negative [...] three months and prn. documented in this encounterWooster Community Hospital03-31-2022 Miscellaneous Notes* Telephone Encounter - Jazmyn Garcia RPh - 01/13/2022 2:33 PM EDT Patient due to test INR today. Will continue to monitor for results. Jazmyn Garcia RPh documented in this encounterWooster Community Hospital11-11-2020 History of Past illness Narrative* Problem [...] of this encounter (statuses as of 08/15/2023) [facility] History of Past illness Narrative* Problem [...] of this encounter (statuses as of 08/15/2023) [facility] History of Past illness Narrative* Problem [...] of this encounter (statuses as of 08/16/2023) [facility] History of Past illness Narrative* Problem [...] of this encounter (statuses as of 08/23/2023) [facility] History of Past illness Narrative* Problem [...] of this encounter (statuses as of 09/06/2023) [facility] History of Past illness Narrative* Problem [...] of this encounter (statuses as of 09/20/2023) [facility] History of Past illness Narrative* Problem [...] of this encounter (statuses as of 12/04/2023) [facility] History of Past illness Narrative* Problem [...] of this encounter (statuses as of 12/21/2023) [facility] History of Past illness Narrative* Problem [...] of this encounter (statuses as of 12/21/2023) [facility] History of Past illness Narrative* Problem [...] of this encounter (statuses as of 12/22/2023) [facility] History of Past illness Narrative* Problem [...] of this encounter (statuses as of 01/15/2024) [facility] History of Past illness Narrative* Problem [...] of this encounter (statuses as of 01/18/2024) [facility] Past [facility] Narrative* Problem [...] of this encounter (statuses as of 01/19/2022) [facility]ative* Problem [...] of this encounter (statuses as of 01/25/2022) [facility]* Problem [...] of this encounter (statuses as of 02/11/2022) [facility]* Problem [...] of this encounter (statuses as of 03/09/2022) [facility]* Problem [...] of this encounter (statuses as of 03/17/2022) [facility]* Problem [...] of this encounter (statuses as of 03/18/2022) [facility]* Problem [...] of this encounter (statuses as of 04/04/2022) [facility]* Problem [...] of this encounter (statuses as of 04/25/2022) [facility]* Problem [...] of this encounter (statuses as of 05/13/2022) [facility]* Problem [...] of this encounter (statuses as of 05/16/2022) [facility]* Problem [...] of this encounter (statuses as of 05/19/2022) [facility]* Problem [...] of this encounter (statuses as of 06/14/2022) [facility]* Problem [...] of this encounter (statuses as of 07/05/2022) [facility]* Problem [...] of this encounter (statuses as of 07/22/2022) [facility]* Problem [...] of this encounter (statuses as of 08/01/2022) [facility]* Problem [...] of this encounter (statuses as of 08/15/2022) [facility]* Problem [...] of this encounter (statuses as of 09/07/2022) [facility]* Problem [...] of this encounter (statuses as of 09/15/2022) [facility]* Problem [...] of this encounter (statuses as of 09/23/2022) [facility]* Problem [...] of this encounter (statuses as of 09/29/2022) [facility]* Problem [...] of this encounter (statuses as of 10/16/2022) [facility]* Problem [...] of this encounter (statuses as of 10/25/2022) [facility]* Problem [...] of this encounter (statuses as of 11/04/2022) [facility]* Problem [...] of this encounter (statuses as of 11/08/2022) [facility]* Problem [...] of this encounter (statuses as of 11/18/2022) [facility]* Problem [...] of this encounter (statuses as of 11/28/2022) [facility]* Problem [...] of this encounter (statuses as of 12/19/2022) [facility]* Problem [...] of this encounter (statuses as of 01/12/2023) [facility]* Problem [...] of this encounter (statuses as of 01/16/2023) [facility]* Problem [...] of this encounter (statuses as of 02/07/2023) [facility]* Problem [...] of this encounter (statuses as of 02/14/2023) [facility]* Problem [...] of this encounter (statuses as of 03/29/2023) [facility]* Problem [...] of this encounter (statuses as of 04/20/2023) [facility]* Problem [...] of this encounter (statuses as of 04/24/2023) [facility]* Problem [...] of this encounter (statuses as of 05/22/2023) [facility]* Problem [...] of this encounter (statuses as of 06/28/2023) [facility]* Problem [...] of this encounter (statuses as of 07/05/2023) [facility]* Problem [...] of this encounter [facility] as [facility]2023) [facility] Essential hypertension- Primary Unspecified essential [...] 3b CKD (HCC) [facility] Diagnosis intermediate (current) use of anticoagulants- Primary Long-term (current) use of anticoagulants Paroxysmal atrial fibrillation (HCC) Atrial fibrillation [facility] Diagnosis intermediate (current) use of anticoagulants- Primary Long-term (current) use of anticoagulants Paroxysmal atrial fibrillation (HCC) Atrial fibrillation [facility] Diagnosis 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- Primary Long-term (current) use of anticoagulants Paroxysmal atrial fibrillation (HCC) Atrial fibrillation [facility] Diagnosis intermediate (current) use of anticoagulants- Primary Long-term (current) use of anticoagulants Paroxysmal atrial fibrillation (HCC) Atrial fibrillation [facility] Diagnosis Bilateral carotid artery stenosis- Primary Occlusion and stenosis of carotid artery without mention of cerebral infarction Stenosis of left carotid artery Occlusion and stenosis of carotid artery without mention of cerebral infarction [facility] Diagnosis intermediate (current) use of anticoagulants- Primary Long-term (current) use of anticoagulants Paroxysmal atrial fibrillation (HCC) [facility] Diagnosis Benign prostatic hyperplasia without lower urinary tract symptoms Mixed dementia (HCC) Essential hypertension with goal blood pressure less than 140/90 Lung nodule Solitary pulmonary nodule Paroxysmal atrial fibrillation (HCC) Atrial fibrillation [facility] Diagnosis Paroxysmal atrial fibrillation (HCC) Atrial fibrillation [facility] Diagnosis Obesity, Class II, BMI 35-39.9- Primary Obesity, unspecified Paroxysmal atrial fibrillation (HCC) Atrial fibrillation Nonrheumatic aortic valve stenosis Aortic valve disorders Aortic valve disorder Aortic valve disorders [facility]* Diagnosis 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- Primary Long-term (current) use of anticoagulants Paroxysmal atrial fibrillation (HCC) [facility]rial [facility] Diagnosis Essential hypertension with goal blood pressure less than 140/90 [facility]* Diagnosis intermediate (current) use of anticoagulants- Primary Long-term (current) use of anticoagulants Paroxysmal atrial fibrillation (HCC) Atrial [facility] Diagnosis Bilateral carotid artery stenosis- Primary Occlusion and stenosis of carotid artery without mention of cerebral infarction [facility]* Diagnosis 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- Primary Long-term (current) use of anticoagulants Paroxysmal atrial fibrillation (HCC) Atrial [facility] Diagnosis Essential hypertension with goal blood pressure less than 140/90 [facility]* Diagnosis Essential hypertension with goal [...] for COVID-19 vaccine [facility]* Diagnosis Syncope, unspecified syncope type- Primary Aortic valve disorder Aortic valve disorders [facility]* Diagnosis Paroxysmal atrial fibrillation (HCC) Atrial fibrillation Essential hypertension with goal blood pressure less than 140/90 Benign prostatic hyperplasia without lower urinary tract symptoms Mixed dementia (HCC) Lung nodule Solitary pulmonary nodule Type 2 diabetes mellitus with stage 3 chronic kidney disease, without long-term current use of insulin (HCC) [facility] Diagnosis Essential hypertension with goal blood pressure less than 140/90 [facility]* Diagnosis 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- Primary Long-term (current) use of anticoagulants Paroxysmal atrial fibrillation (HCC) [facility] Diagnosis Onychomycosis- Primary Dermatophytosis of nail [...] kidney disease (HCC) [facility]* Diagnosis Renal insufficiency- Primary Unspecified disorder of kidney and ureter [facility]* Diagnosis 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- Primary Long-term (current) use of anticoagulants Paroxysmal atrial fibrillation (HCC) Atrial fibrillation [facility] Diagnosis 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- Primary Long-term (current) use of anticoagulants Paroxysmal atrial fibrillation (HCC) Atrial fibrillation [facility]* Diagnosis Abrasion of arm, left, initial encounter- Primary Chronic insomnia Insomnia, unspecified [facility]* Diagnosis Essential hypertension with goal blood pressure less than 140/90 Paroxysmal atrial fibrillation (HCC) Atrial fibrillation [facility]* Diagnosis Lung nodule Solitary pulmonary nodule [facility]* Diagnosis 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- Primary Long-term (current) use of anticoagulants Paroxysmal atrial fibrillation (HCC) Atrial fibrillation [facility]* Diagnosis Syncope, unspecified syncope type- Primary Aortic valve disorder Aortic valve disorders Paroxysmal atrial fibrillation (HCC) Atrial fibrillation Ectatic thoracic aorta (HCC) 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, without long-term current use of insulin (HCC) [facility] Diagnosis Essential hypertension- Primary Unspecified essential [...] or 3b CKD (HCC) Mixed dementia (HCC) 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 Long-term (current) use of anticoagulants Obesity, Class II, BMI 35-39.9 Obesity, unspecified Renal insufficiency Unspecified disorder of kidney and ureter Anemia, unspecified type [facility] Diagnosis 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- Primary Long-term (current) use of anticoagulants Paroxysmal atrial fibrillation (HCC) Atrial fibrillation [facility] Diagnosis CKD (chronic kidney disease) stage 4, 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/min ([facility])- Primary Chronic kidney disease, Stage IV (severe) Anemia, unspecified type [facility] Diagnosis Essential hypertension- Primary Unspecified essential [...] IV (severe) [facility] Diagnosis 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- Primary Long-term (current) use of anticoagulants Paroxysmal atrial fibrillation (HCC) Atrial fibrillation [facility] Diagnosis Renal insufficiency Unspecified disorder of kidney and ureter [facility] Diagnosis Essential hypertension- Primary Unspecified essential hypertension Hypertensive kidney disease with stage 3 chronic kidney disease, unspecified whether stage 3a or 3b CKD (HCC) Anemia, unspecified type [facility] Diagnosis intermediate (current) use of anticoagulants- Primary Long-term (current) use of anticoagulants Paroxysmal atrial fibrillation (HCC) Atrial fibrillation [facility] Diagnosis Blood pressure check- Primary Screening for hypertension Leg swelling Swelling of limb [facility] Diagnosis Aortic valve stenosis, etiology of cardiac valve disease unspecified- Primary Hypertensive kidney disease with stage 3b chronic kidney disease (HCC) Paroxysmal atrial fibrillation (HCC) Atrial fibrillation Benign prostatic hyperplasia without lower urinary tract symptoms Anemia, unspecified type documented in this encounter [facility] note* Diagnosis 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- Primary Long-term (current) use of anticoagulants Paroxysmal atrial fibrillation (HCC) Atrial fibrillation documented in this encounter [facility] note* Diagnosis Screen for colon cancer- Primary Special screening for malignant neoplasms, colon documented in this encounter [facility] note* Diagnosis 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- Primary Long-term (current) use of anticoagulants Paroxysmal atrial fibrillation (HCC) Atrial fibrillation documented in this encounter [facility] note* Diagnosis Severe aortic stenosis [I35.0]- Primary Aortic valve disorders Valvular heart disease Endocarditis, valve unspecified, unspecified cause documented in this encounter [facility] note* Diagnosis Nonrheumatic aortic valve stenosis- Primary [...] unspecified, unspecified cause documented in this encounter [facility] note* Diagnosis Nonrheumatic aortic valve stenosis Aortic valve disorders Valvular heart disease Endocarditis, valve unspecified, unspecified cause documented in this encounter [facility] note* Diagnosis Essential hypertension- Primary Unspecified essential [...] disease, Stage IV (severe) Mixed dementia (HCC) 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 Long-term (current) use of anticoagulants Need for vaccination Need for prophylactic vaccination and inoculation against unspecified single disease Valvular heart disease Endocarditis, valve unspecified, unspecified cause [facility] Diagnosis Essential hypertension- Primary Unspecified essential hypertension Valvular heart disease Endocarditis, valve unspecified, unspecified cause documented in this encounter [facility] note* Diagnosis Paroxysmal atrial fibrillation (HCC)- Primary Atrial fibrillation Aortic valve stenosis, etiology of cardiac valve disease unspecified Valvular heart disease Endocarditis, valve unspecified, unspecified cause documented in this encounter [facility] note* Diagnosis Nonrheumatic aortic valve stenosis- Primary Aortic valve disorders Paroxysmal atrial fibrillation (HCC) Atrial fibrillation Valvular heart disease Endocarditis, valve unspecified, unspecified cause [facility] Diagnosis Nonrheumatic aortic valve stenosis Aortic valve disorders Encounter for preprocedural cardiovascular examination Pre-operative cardiovascular examination documented in this encounter [facility] note* Diagnosis 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- Primary Long-term (current) use of anticoagulants Paroxysmal atrial fibrillation (HCC) Atrial fibrillation [facility] Diagnosis Bilateral carotid artery stenosis- Primary Occlusion and stenosis of carotid artery without mention of cerebral infarction History of carotid endarterectomy Other postprocedural status [facility] Diagnosis intermediate (current) use of anticoagulants- Primary Long-term (current) use of anticoagulants Paroxysmal atrial fibrillation (HCC) Atrial fibrillation [facility] Diagnosis Hyperlipidemia, mixed- Primary Mixed hyperlipidemia [...] (HCC) Chronic kidney disease, Stage IV (severe) 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 Long-term (current) use of anticoagulants Obesity, Class II, BMI 35-39.9 Obesity, unspecified Viral conjunctivitis Unspecified diseases of conjunctiva due to viruses Seasonal allergic rhinitis, unspecified trigger Bilateral impacted cerumen Impacted cerumen documented in this encounter [facility] note* Diagnosis intermediate (current) use of anticoagulants- Primary Long-term (current) use of anticoagulants Paroxysmal atrial fibrillation (HCC) Atrial fibrillation documented in this encounter [facility] note* Diagnosis Paroxysmal atrial fibrillation (HCC) Atrial fibrillation documented in this encounter [facility] for referral (narrative)* Outpatient Procedure (Routine) - Pending Review Specialty Diagnoses / Procedures Referred By Contac t Referred To Contact [facility] Diagnoses Bilateral carotid artery stenosis Procedures US CAROTID ARTERIES GRAY VAS LAB DUPLEX SCAN EXTRACRANIAL ART COMPL BI STUDY Alondra Prescott, DO [address] [place] [address] [address] Referral ID Status Reason Start Date Expiration Date Visits Requested Visits Authorized [id number] Pending Review Auto-Generat ed Referral 03/18/2022 03/16/2023 1 1 [facility] for referral (narrative)* Outpatient Procedure (Routine) - Authorized Specialty Diagnoses / Procedures Referred By Contac t Referred To Contact [facility] Diagnoses Nonrheumatic aortic valve stenosis Procedures ECHO ECHO TTHRC R-T 2D W/WOM-MODE COMPL SPEC&COLR D Pam Reddy MD [address] [place] [address] [facility] [address] [address] Referral ID Status Reason Start Date Expiration Date Visits Requested Visits Authorized [id number] Authorized Auto-Generat ed Referral 08/22/2022 08/15/2023 1 1 [facility] for referral (narrative)* Outpatient Procedure (Routine) - Pending Review Specialty Diagnoses / Procedures Referred By Contac t Referred To Contact [facility] Diagnoses Bilateral carotid artery stenosis Procedures US CAROTID ARTERIES GRAY VAS LAB DUPLEX SCAN EXTRACRANIAL ART COMPL BI Alondra Schuler DO [address] [place] [address] [address] Referral ID Status Reason Start Date Expiration Date Visits Requested Visits Authorized [id number] Pending Review Auto-Generat ed Referral 10/04/2023 1 1 [facility] for referral (narrative)* Outpatient Procedure (Routine) - Authorized Specialty Diagnoses / Procedures Referred By Contac t Referred To Contact [facility] Diagnoses Syncope, unspecified syncope type Aortic valve disorder Procedures ECHO ECHO TTHRC R-T 2D W/WOM-MODE COMPL SPEC&COLR Pam Velazco MD [address] [place] [address] [address] Referral ID Status Reason Start Date Expiration Date Visits Requested Visits Authorized [id number] Authorized Auto-Generat ed Referral 02/20/2023 02/13/2024 1 1 [facility] for referral (narrative)* Outpatient Procedure (Routine) - Pending Review Specialty Diagnoses / Procedures Referred By Contac t Referred To [facility] Diagnoses Syncope, unspecified syncope type Aortic valve disorder Procedures ECHO ECHO TTHRC R-T 2D W/WOM-MODE COMPL SPEC&COLPam Buchanan MD [address], [facility] [address] [place] [address] [facility] [address] [place] [address] Referral ID Status Reason Start Date Expiration Date Visits Requested Visits Authorized [id number] Pending Review Auto-Generat ed Referral 04/08/2024 03/25/2025 1 1 * Outpatient Procedure (Routine) - Pending Review Specialty Diagnoses / Procedures Referred By Contac t Referred To Contact [facility] Diagnoses Syncope, unspecified syncope type Aortic valve disorder Paroxysmal atrial fibrillation (HCC) Procedures ECG COMPLETE ECG ROUTINE ECG W/LEAST 12 LDS W/I&R Pam Reddy MD [address], [address] [place] [address] [facility] [address] [address] Referral ID Status Reason Start Date Expiration Date Visits Requested Visits Authorized [id number] Pending Review Auto-Generat ed Referral 03/21/2024 03/21/2025 1 1 [facility] for referral (narrative)* Diagnostic Procedure Only (Routine) - Authorized Specialty Diagnoses / Procedures Referred By Contac t Referred To Contact [facility] Diagnoses Renal insufficiency Procedures US KIDNEY/BLADDER US RETROPERITONEAL REAL TIME W/IMAGE COMPLETE Guanakito Reno MD [address] [place] [id number] [place] [address] Referral ID Status Reason Start Date Expiration Date Visits Requested Visits Authorized [id number] Authorized Auto-Generat ed Referral 03/26/2024 04/25/2025 1 1 * Outpatient Procedure (Routine) - Pending Review Specialty Diagnoses / Procedures Referred By Juveac t Referred To Contact [facility] [place] Diagnoses History of carotid endarterectomy Procedures US CAROTID ARTERIES GRAY VAS LAB DUPLEX SCAN EXTRACRANIAL ART COMPL BI STUDY Guanakito Reno MD [address] [place] [address] [facility] [address] [address] Referral ID Status Reason Start Date Expiration Date Visits Requested Visits Authorized [id number] Pending Review Auto-Generat ed Referral 03/26/2024 03/26/2025 1 1 [facility] for referral (narrative)* Diagnostic Procedure Only (Routine) - Closed Specialty Diagnoses / Procedures Referred By Contac t Referred To Contact US IMAGING Diagnoses Renal insufficiency Procedures US KIDNEY/BLADDER US RETROPERITONEAL REAL TIME W/IMAGE COMPLETE Guanakito Reno MD [address] [place] [address] [place] [address] Referral ID Status Reason Start Date Expiration Date V isits Requested Visits Authorized [id number] Closed Auto-Generate d Referral 03/26/2024 04/25/2025 1 [facility] Procedure Only (Routine) - New Request Specialty Diagnoses / Procedures Referred By Anival aden Referred To Contact US IMAGING Diagnoses Bilateral carotid artery stenosis History of carotid endarterectomy Procedures US CAROTID BILATERAL Laura Iraheta MD [address] [facility] [address] [place] [address] [place] [address] Referral ID Status Reason Start Date Expiration Date Visits Requested Visits Authorized [id number] New Request Auto-Generat ed Referral 09/05/2025 1 1 [facility] Summary Purpose Family History No Family [...] Diagnoses Mixed dementia (HCC) Guanakito Reno MD [address] [place] [address] Referral ID Status Reason Start Date Expiration Date Visits Re quested Visits Authorized [id number] Closed 1 1 Referral ID Status Reason Start Date Expiration Date Visits Re quested Visits Authorized [id number] Closed 1 1 Specialty Diagnoses / Procedures Referred By Anival aden Referred To Contact Podiatry Diagnoses Onychomycosis Procedures CONSULT TO PODIATRY OFFICE/OUTPATIENT NEW HIGH MDM 60-74 MINUTES Guanakito Reno MD [address] [place] [address] Referral ID Status Reason Start Date Expiration Date Visits Requested Visits Authorized [id number] Pending Review PCP Requested Referral 3 08/13/2024 1 1 Specialty Diagnoses / Procedures Referred By Contac t Referred To Contact Nephrology Diagnoses CKD (chronic kidney disease) stage 4, 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/min ([facility]) Anemia, unspecified type Procedures CONSULT TO NEPHROLOGY OFFICE/OUTPATIENT [facility] 60 MINUTES Guanakito Reno MD [address] [place] [address] Referral ID Status Reason Start Date Expiration Date Visits Requested Visits Authorized [id number] Authorized PCP Requested Referral 04/05/2024 04/05/2025 1 1 Specialty Diagnoses / Procedures Referred By Contac t Referred To Contact Vascular Surgery Diagnoses Stenosis of left carotid artery Procedures CONSULT TO VASCULAR SURGERY OFFICE/OUTPATIENT [facility] 60 MINUTES Josselyn Mayer, DIRECTOR DIGITAL ADVERTISING.TELEGRAPHIC TYPEWRITER INSTALLER [address] [place] [address] Laura Iraheta MD [address] [place] [address] Referral ID Status Reason Start Date Expiration Date Visits Requested Visits Authorized [id number] Authorized PCP Requested Referral 07/10/2024 07/10/2025 1 1 Specialty Diagnoses / Procedures Referred By Contac t Referred To Contact Nephrology Diagnoses Chronic kidney disease, unspecified CKD stage Anemia in chronic kidney disease, unspecified CKD stage Procedures CONSULT TO NEPHROLOGY Josselyn Mayer, DIRECTOR DIGITAL ADVERTISING.TELEGRAPHIC TYPEWRITER INSTALLER [address] [place] [address] Eladio Remy MD [address] [place] [address] Referral ID Status Reason Start Date Expiration Date Visits Requested Visits Authorized [id number] Ref Not Required PCP Requested Referral 07/10/2024 07/10/2025 1 1 Specialty Diagnoses / Procedures Referred By Contac t Referred To Contact Gerontology Diagnoses Dementia, unspecified dementia severity, unspecified dementia type, unspecified whether behavioral, psychotic, or mood disturbance or anxiety (HCC) Procedures CONSULT TO GERIATRICS OFFICE/OUTPATIENT [facility] MDM 60 MINUTES Josselyn Mayer, DIRECTOR DIGITAL ADVERTISING.TELEGRAPHIC TYPEWRITER INSTALLER [address] [place] [address] Referral ID Status Reason Start Date Expiration Date Visits Requested Visits Authorized [id number] Authorized PCP Requested Referral 07/10/2024 07/10/2025 1 1 Specialty Diagnoses / Procedures Referred By Contac t Referred To Contact CT IMAGING Diagnoses Nonrheumatic aortic valve stenosis Encounter for preprocedural cardiovascular examination Procedures CTA CHEST (GATED) WO/W IVCON CT ANGIOGRAPHY CHEST W/CONTRAST/NONCONTRAST Josselyn Mayer, DIRECTOR DIGITAL ADVERTISING.TELEGRAPHIC TYPEWRITER INSTALLER [address] [place] [address] [address] [place] [address] Referral ID Status Reason Start Date Expiration Date Visits Requested Visits Authorized [id number] Authorized Auto-Generat ed Referral 07/10/2024 08/09/2025 1 1 Specialty Diagnoses / Procedures Referred By Contac t Referred To Contact CT IMAGING Diagnoses Nonrheumatic aortic valve stenosis Encounter for preprocedural cardiovascular examination Procedures CTA ABD/PEL W IVCON CT ANGIO ABD&PLVIS CNTRST MTRL W/WO CNTRST IMGES Josselyn Mayer, DIRECTOR DIGITAL ADVERTISING.TELEGRAPHIC TYPEWRITER INSTALLER [address] [place] [address] [place] [address] Referral ID Status Reason Start Date Expiration Date Visits Requested Visits Authorized [id number] Authorized Auto-Generat ed Referral 07/10/2024 08/09/2025 1 1 Referral ID Status Reason Start Date Expiration Date V isits Requested Visits Authorized [id number] Closed Auto-Generate d Referral 07/10/2024 08/09/2025 1 1 Referral ID Status Reason Start Date Expiration Date V isits Requested Visits Authorized [id number] Closed Auto-Generate d Referral 07/10/2024 08/09/2025 1 1 Chief Complaint and Reason for Visit Chief Complaint Admit Date RIGHT HUMERUS March 07, 2025 12:49 pm FRACTURE UPPER RIGHT HUMERUS. RX HERE Ju 2024 12:30pm RIGHT HUMERUS May 02, 2025 10:1 1am Room 1 May 02, 2025 10:2 9am Reason for Visit Admit Date Closed fracture of right proximal humeru s March 07, 2025 12:49pm Chief Complaint Admit Date RIGHT HUMERUS March 07, 2025 12:49 pm FRACTURE UPPER RIGHT HUMERUS. RX HERE Ju ne 2024 12:30pm LABWORK April 17, 2025 5:00a m RESIDENTIAL LAB WORK April 24, 2025 5: 00am RESIDENTIAL LAB WORK April 29, 2025 6: 45am RESIDENTIAL LAB WORK May 01, 2025 5: 15am RIGHT HUMERUS May 02, 2025 10:1 1am Room 1 May 02, 2025 10:2 9am RESIDENTIAL LAB WORK May 06, 2025 4: 00am RESIDENTIAL LAB WORK May 08, 2025 5: 00am RESIDENTIAL LAB WORK May 13, 2025 5: 00am RESIDENTIAL LAB WORK May 15, 2025 5: 00am RESIDENTIAL LAB WORK May 20, 2025 4 :00am [...] section and content) DATE CREATED AUTHOR 04/06/2018 [facility] DATE CREATED AUTHOR AUTHOR'S ORGANIZ ATION 08/03/2025 [facility] DATE CREATED AUTHOR AUTHOR'S ORGANIZ ATION 08/04/2025 [facility] DATE CREATED AUTHOR AUTHOR'S ORGANIZ ATION 08/12/2025 [facility] dical Center Source Comments (unrecognize d section and content) In the event this informatio n is protected by the Federal Confidentiality of Alcohol and Drug Abuse Patient Records regulations: The Federal rules restrict any use of the information to criminally investigate or prosecute any alcohol or drug abuse patient.[facility] the event this information is protected by the Federal Confidentiality of Alcohol and Drug Abuse Patient Records regulations: The Federal rules restrict any use of the information to criminally investigate or prosecute any alcohol or drug abuse patient.[facility] the event this information is protected by the Federal Confidentiality of Alcohol and Drug Abuse Patient Records regulations: The Federal rules restrict any use of the information to criminally investigate or prosecute any alcohol or drug abuse patient.[facility] the event this information is protected by the Federal Confidentiality of Alcohol and Drug Abuse Patient Records regulations: The Federal rules restrict any use of the information to criminally investigate or prosecute any alcohol or drug abuse patient.[facility] the event this information is protected by the Federal Confidentiality of Alcohol and Drug Abuse Patient Records regulations: The Federal rules restrict any use of the information to criminally investigate or prosecute any alcohol or drug abuse patient.[facility] the event this information is protected by the Federal Confidentiality of Alcohol and Drug Abuse Patient Records regulations: The Federal rules restrict any use of the information to criminally investigate or prosecute any alcohol or drug abuse patient.[facility] the event this information is protected by the Federal Confidentiality of Alcohol and Drug Abuse Patient Records regulations: The Federal rules restrict any use of the information to criminally investigate or prosecute any alcohol or drug abuse patient.[facility] the event this information is protected by the Federal Confidentiality of Alcohol and Drug Abuse Patient Records regulations: The Federal rules restrict any use of the information to criminally investigate or prosecute any alcohol or drug abuse patient.[facility] the event this information is protected by the Federal Confidentiality of Alcohol and Drug Abuse Patient Records regulations: The Federal rules restrict any use of the information to criminally investigate or prosecute any alcohol or drug abuse patient.[facility] the event this information is protected by the Federal Confidentiality of Alcohol and Drug Abuse Patient Records regulations: The Federal rules restrict any use of the information to criminally investigate or prosecute any alcohol or drug abuse patient.[facility] the event this information is protected by the Federal Confidentiality of Alcohol and Drug Abuse Patient Records regulations: The Federal rules restrict any use of the information to criminally investigate or prosecute any alcohol or drug abuse patient.[facility] the event this information is protected by the Federal Confidentiality of Alcohol and Drug Abuse Patient Records regulations: The Federal rules restrict any use of the information to criminally investigate or prosecute any alcohol or drug abuse patient.[facility] the event this information is protected by the Federal Confidentiality of Alcohol and Drug Abuse Patient Records regulations: The Federal rules restrict any use of the information to criminally investigate or prosecute any alcohol or drug abuse patient.[facility] the event this information is protected by the Federal Confidentiality of Alcohol and Drug Abuse Patient Records regulations: The Federal rules restrict any use of the information to criminally investigate or prosecute any alcohol or drug abuse patient.[facility] the event this information is protected by the Federal Confidentiality of Alcohol and Drug Abuse Patient Records regulations: The Federal rules restrict any use of the information to criminally investigate or prosecute any alcohol or drug abuse patient.[facility] the event this information is protected by the Federal Confidentiality of Alcohol and Drug Abuse Patient Records regulations: The Federal rules restrict any use of the information to criminally investigate or prosecute any alcohol or drug abuse patient.[facility] the event this information is protected by the Federal Confidentiality of Alcohol and Drug Abuse Patient Records regulations: The Federal rules restrict any use of the information to criminally investigate or prosecute any alcohol or drug abuse patient.[facility]In the event this information is protected by the Federal Confidentiality of Alcohol and Drug Abuse Patient Records regulations: The Federal rules restrict any use of the information to criminally investigate or prosecute any alcohol or drug abuse patient.[facility] the event this information is protected by the Federal Confidentiality of Alcohol and Drug Abuse Patient Records regulations: The Federal rules restrict any use of the information to criminally investigate or prosecute any alcohol or drug abuse patient.[facility]In the event this information is protected by the Federal Confidentiality of Alcohol and Drug Abuse Patient Records regulations: The Federal rules restrict any use of the information to criminally investigate or prosecute any alcohol or drug abuse patient.[facility] the event this information is protected by the Federal Confidentiality of Alcohol and Drug Abuse Patient Records regulations: The Federal rules restrict any use of the information to criminally investigate or prosecute any alcohol or drug abuse patient.[facility]In the event this information is protected by the Federal Confidentiality of Alcohol and Drug Abuse Patient Records regulations: The Federal rules restrict any use of the information to criminally investigate or prosecute any alcohol or drug abuse patient.[facility]In the event this information is protected by the Federal Confidentiality of Alcohol and Drug Abuse Patient Records regulations: The Federal rules restrict any use of the information to criminally investigate or prosecute any alcohol or drug abuse patient.[facility]In the event this information is protected by the Federal Confidentiality of Alcohol and Drug Abuse Patient Records regulations: The Federal rules restrict any use of the information to criminally investigate or prosecute any alcohol or drug abuse patient.[facility]In the event this information is protected by the Federal Confidentiality of Alcohol and Drug Abuse Patient Records regulations: The Federal rules restrict any use of the information to criminally investigate or prosecute any alcohol or drug abuse patient.[facility]In the event this information is protected by the Federal Confidentiality of Alcohol and Drug Abuse Patient Records regulations: The Federal rules restrict any use of the information to criminally investigate or prosecute any alcohol or drug abuse patient.[facility]In the event this information is protected by the Federal Confidentiality of Alcohol and Drug Abuse Patient Records regulations: The Federal rules restrict any use of the information to criminally investigate or prosecute any alcohol or drug abuse patient.[facility]In the event this information is protected by the Federal Confidentiality of Alcohol and Drug Abuse Patient Records regulations: The Federal rules restrict any use of the information to criminally investigate or prosecute any alcohol or drug abuse patient.[facility]In the event this information is protected by the Federal Confidentiality of Alcohol and Drug Abuse Patient Records regulations: The Federal rules restrict any use of the information to criminally investigate or prosecute any alcohol or drug abuse patient.[facility]In the event this information is protected by the Federal Confidentiality of Alcohol and Drug Abuse Patient Records regulations: The Federal rules restrict any use of the information to criminally investigate or prosecute any alcohol or drug abuse patient.[facility]In the event this information is protected by the Federal Confidentiality of Alcohol and Drug Abuse Patient Records regulations: The Federal rules restrict any use of the information to criminally investigate or prosecute any alcohol or drug abuse patient.[facility]In the event this information is protected by the Federal Confidentiality of Alcohol and Drug Abuse Patient Records regulations: The Federal rules restrict any use of the information to criminally investigate or prosecute any alcohol or drug abuse patient.[facility]In the event this information is protected by the Federal Confidentiality of Alcohol and Drug Abuse Patient Records regulations: The Federal rules restrict any use of the information to criminally investigate or prosecute any alcohol or drug abuse patient.[facility]In the event this information is protected by the Federal Confidentiality of Alcohol and Drug Abuse Patient Records regulations: The Federal rules restrict any use of the information to criminally investigate or prosecute any alcohol or drug abuse patient.[facility]In the event this information is protected by the Federal Confidentiality of Alcohol and Drug Abuse Patient Records regulations: The Federal rules restrict any use of the information to criminally investigate or prosecute any alcohol or drug abuse patient.[facility]In the event this information is protected by the Federal Confidentiality of Alcohol and Drug Abuse Patient Records regulations: The Federal rules restrict any use of the information to criminally investigate or prosecute any alcohol or drug abuse patient.[facility]In the event this information is protected by the Federal Confidentiality of Alcohol and Drug Abuse Patient Records regulations: The Federal rules restrict any use of the information to criminally investigate or prosecute any alcohol or drug abuse patient.[facility]In the event this information is protected by the Federal Confidentiality of Alcohol and Drug Abuse Patient Records regulations: The Federal rules restrict any use of the information to criminally investigate or prosecute any alcohol or drug abuse patient.[facility]In the event this information is protected by the Federal Confidentiality of Alcohol and Drug Abuse Patient Records regulations: The Federal rules restrict any use of the information to criminally investigate or prosecute any alcohol or drug abuse patient.[facility]In the event this information is protected by the Federal Confidentiality of Alcohol and Drug Abuse Patient Records regulations: The Federal rules restrict any use of the information to criminally investigate or prosecute any alcohol or drug abuse patient.[facility]In the event this information is protected by the Federal Confidentiality of Alcohol and Drug Abuse Patient Records regulations: The Federal rules restrict any use of the information to criminally investigate or prosecute any alcohol or drug abuse patient.[facility]In the event this information is protected by the Federal Confidentiality of Alcohol and Drug Abuse Patient Records regulations: The Federal rules restrict any use of the information to criminally investigate or prosecute any alcohol or drug abuse patient.[facility]In the event this information is protected by the Federal Confidentiality of Alcohol and Drug Abuse Patient Records regulations: The Federal rules restrict any use of the information to criminally investigate or prosecute any alcohol or drug abuse patient.[facility]In the event this information is protected by the Federal Confidentiality of Alcohol and Drug Abuse Patient Records regulations: The Federal rules restrict any use of the information to criminally investigate or prosecute any alcohol or drug abuse patient.[facility]In the event this information is protected by the Federal Confidentiality of Alcohol and Drug Abuse Patient Records regulations: The Federal rules restrict any use of the information to criminally investigate or prosecute any alcohol or drug abuse patient.[facility]In the event this information is protected by the Federal Confidentiality of Alcohol and Drug Abuse Patient Records regulations: The Federal rules restrict any use of the information to criminally investigate or prosecute any alcohol or drug abuse patient.[facility]In the event this information is protected by the Federal Confidentiality of Alcohol and Drug Abuse Patient Records regulations: The Federal rules restrict any use of the information to criminally investigate or prosecute any alcohol or drug abuse patient.[facility]In the event this information is protected by the Federal Confidentiality of Alcohol and Drug Abuse Patient Records regulations: The Federal rules restrict any use of the information to criminally investigate or prosecute any alcohol or drug abuse patient.[facility]In the event this information is protected by the Federal Confidentiality of Alcohol and Drug Abuse Patient Records regulations: The Federal rules restrict any use of the information to criminally investigate or prosecute any alcohol or drug abuse patient.[facility]In the event this information is protected by the Federal Confidentiality of Alcohol and Drug Abuse Patient Records regulations: The Federal rules restrict any use of the information to criminally investigate or prosecute any alcohol or drug abuse patient.[facility]In the event this information is protected by the Federal Confidentiality of Alcohol and Drug Abuse Patient Records regulations: The Federal rules restrict any use of the information to criminally investigate or prosecute any alcohol or drug abuse patient.[facility]In the event this information is protected by the Federal Confidentiality of Alcohol and Drug Abuse Patient Records regulations: The Federal rules restrict any use of the information to criminally investigate or prosecute any alcohol or drug abuse patient.[facility]In the event this information is protected by the Federal Confidentiality of Alcohol and Drug Abuse Patient Records regulations: The Federal rules restrict any use of the information to criminally investigate or prosecute any alcohol or drug abuse patient.[facility]In the event this information is protected by the Federal Confidentiality of Alcohol and Drug Abuse Patient Records regulations: The Federal rules restrict any use of the information to criminally investigate or prosecute any alcohol or drug abuse patient.[facility]In the event this information is protected by the Federal Confidentiality of Alcohol and Drug Abuse Patient Records regulations: The Federal rules restrict any use of the information to criminally investigate or prosecute any alcohol or drug abuse patient.[facility]In the event this information is protected by the Federal Confidentiality of Alcohol and Drug Abuse Patient Records regulations: The Federal rules restrict any use of the information to criminally investigate or prosecute any alcohol or drug abuse patient.[facility]In the event this information is protected by the Federal Confidentiality of Alcohol and Drug Abuse Patient Records regulations: The Federal rules restrict any use of the information to criminally investigate or prosecute any alcohol or drug abuse patient.[facility] HospitalIn the event this information is protected by the Federal Confidentiality of Alcohol and Drug Abuse Patient Records regulations: The Federal rules restrict any use of the information to criminally investigate or prosecute any alcohol or drug abuse patient.[facility] HospitalIn the event this information is protected by the Federal Confidentiality of Alcohol and Drug Abuse Patient Records regulations: The Federal rules restrict any use of the information to criminally investigate or prosecute any alcohol or drug abuse patient.[facility] HospitalIn the event this information is protected by the Federal Confidentiality of Alcohol and Drug Abuse Patient Records regulations: The Federal rules restrict any use of the information to criminally investigate or prosecute any alcohol or drug abuse patient.[facility] HospitalIn the event this information is protected by the Federal Confidentiality of Alcohol and Drug Abuse Patient Records regulations: The Federal rules restrict any use of the information to criminally investigate or prosecute any alcohol or drug abuse patient.[facility] HospitalIn the event this information is protected by the Federal Confidentiality of Alcohol and Drug Abuse Patient Records regulations: The Federal rules restrict any use of the information to criminally investigate or prosecute any alcohol or drug abuse patient.[facility] HospitalIn the event this information is protected by the Federal Confidentiality of Alcohol and Drug Abuse Patient Records regulations: The Federal rules restrict any use of the information to criminally investigate or prosecute any alcohol or drug abuse patient.[facility] HospitalIn the event this information is protected by the Federal Confidentiality of Alcohol and Drug Abuse Patient Records regulations: The Federal rules restrict any use of the information to criminally investigate or prosecute any alcohol or drug abuse patient.[facility] HospitalIn the event this information is protected by the Federal Confidentiality of Alcohol and Drug Abuse Patient Records regulations: The Federal rules restrict any use of the information to criminally investigate or prosecute any alcohol or drug abuse patient.[facility] HospitalIn the event this information is protected by the Federal Confidentiality of Alcohol and Drug Abuse Patient Records regulations: The Federal rules restrict any use of the information to criminally investigate or prosecute any alcohol or drug abuse patient.[facility] HospitalIn the event this information is protected by the Federal Confidentiality of Alcohol and Drug Abuse Patient Records regulations: The Federal rules restrict any use of the information to criminally investigate or prosecute any alcohol or drug abuse patient.[facility] HospitalIn the event this information is protected by the Federal Confidentiality of Alcohol and Drug Abuse Patient Records regulations: The Federal rules restrict any use of the information to criminally investigate or prosecute any alcohol or drug abuse patient.[facility] HospitalIn the event this information is protected by the Federal Confidentiality of Alcohol and Drug Abuse Patient Records regulations: The Federal rules restrict any use of the information to criminally investigate or prosecute any alcohol or drug abuse patient.[facility] HospitalIn the event this information is protected by the Federal Confidentiality of Alcohol and Drug Abuse Patient Records regulations: The Federal rules restrict any use of the information to criminally investigate or prosecute any alcohol or drug abuse patient.[facility] HospitalIn the event this information is protected by the Federal Confidentiality of Alcohol and Drug Abuse Patient Records regulations: The Federal rules restrict any use of the information to criminally investigate or prosecute any alcohol or drug abuse patient.[facility] HospitalIn the event this information is protected by the Federal Confidentiality of Alcohol and Drug Abuse Patient Records regulations: The Federal rules restrict any use of the information to criminally investigate or prosecute any alcohol or drug abuse patient.[facility] HospitalIn the event this information is protected by the Federal Confidentiality of Alcohol and Drug Abuse Patient Records regulations: The Federal rules restrict any use of the information to criminally investigate or prosecute any alcohol or drug abuse patient.[facility] HospitalIn the event this information is protected by the Federal Confidentiality of Alcohol and Drug Abuse Patient Records regulations: The Federal rules restrict any use of the information to criminally investigate or prosecute any alcohol or drug abuse patient.[facility] HospitalIn the event this information is protected by the Federal Confidentiality of Alcohol and Drug Abuse Patient Records regulations: The Federal rules restrict any use of the information to criminally investigate or prosecute any alcohol or drug abuse patient.[facility] HospitalIn the event this information is protected by the Federal Confidentiality of Alcohol and Drug Abuse Patient Records regulations: The Federal rules restrict any use of the information to criminally investigate or prosecute any alcohol or drug abuse patient.[facility] HospitalIn the event this information is protected by the Federal Confidentiality of Alcohol and Drug Abuse Patient Records regulations: The Federal rules restrict any use of the information to criminally investigate or prosecute any alcohol or drug abuse patient.[facility] HospitalIn the event this information is protected by the Federal Confidentiality of Alcohol and Drug Abuse Patient Records regulations: The Federal rules restrict any use of the information to criminally investigate or prosecute any alcohol or drug abuse patient.[facility] HospitalIn the event this information is protected by the Federal Confidentiality of Alcohol and Drug Abuse Patient Records regulations: The Federal rules restrict any use of the information to criminally investigate or prosecute any alcohol or drug abuse patient.[facility] HospitalIn the event this information is protected by the Federal Confidentiality of Alcohol and Drug Abuse Patient Records regulations: The Federal rules restrict any use of the information to criminally investigate or prosecute any alcohol or drug abuse patient.[facility] HospitalIn the event this information is protected by the Federal Confidentiality of Alcohol and Drug Abuse Patient Records regulations: The Federal rules restrict any use of the information to criminally investigate or prosecute any alcohol or drug abuse patient.[facility] HospitalIn the event this information is protected by the Federal Confidentiality of Alcohol and Drug Abuse Patient Records regulations: The Federal rules restrict any use of the information to criminally investigate or prosecute any alcohol or drug abuse patient.[facility] HospitalIn the event this information is protected by the Federal Confidentiality of Alcohol and Drug Abuse Patient Records regulations: The Federal rules restrict any use of the information to criminally investigate or prosecute any alcohol or drug abuse patient.[facility] HospitalIn the event this information is protected by the Federal Confidentiality of Alcohol and Drug Abuse Patient Records regulations: The Federal rules restrict any use of the information to criminally investigate or prosecute any alcohol or drug abuse patient.[facility] HospitalIn the event this information is protected by the Federal Confidentiality of Alcohol and Drug Abuse Patient Records regulations: The Federal rules restrict any use of the information to criminally investigate or prosecute any alcohol or drug abuse patient.[facility] HospitalIn the event this information is protected by the Federal Confidentiality of Alcohol and Drug Abuse Patient Records regulations: The Federal rules restrict any use of the information to criminally investigate or prosecute any alcohol or drug abuse patient.[facility] HospitalIn the event this information is protected by the Federal Confidentiality of Alcohol and Drug Abuse Patient Records regulations: The Federal rules restrict any use of the information to criminally investigate or prosecute any alcohol or drug abuse patient.[facility] HospitalIn the event this information is protected by the Federal Confidentiality of Alcohol and Drug Abuse Patient Records regulations: The Federal rules restrict any use of the information to criminally investigate or prosecute any alcohol or drug abuse patient.[facility] HospitalIn the event this information is protected by the Federal Confidentiality of Alcohol and Drug Abuse Patient Records regulations: The Federal rules restrict any use of the information to criminally investigate or prosecute any alcohol or drug abuse patient.[facility] HospitalIn the event this information is protected by the Federal Confidentiality of Alcohol and Drug Abuse Patient Records regulations: The Federal rules restrict any use of the information to criminally investigate or prosecute any alcohol or drug abuse patient.[facility] HospitalIn the event this information is protected by the Federal Confidentiality of Alcohol and Drug Abuse Patient Records regulations: The Federal rules restrict any use of the information to criminally investigate or prosecute any alcohol or drug abuse patient.[facility] HospitalIn the event this information is protected by the Federal Confidentiality of Alcohol and Drug Abuse Patient Records regulations: The Federal rules restrict any use of the information to criminally investigate or prosecute any alcohol or drug abuse patient.[facility] HospitalIn the event this information is protected by the Federal Confidentiality of Alcohol and Drug Abuse Patient Records regulations: The Federal rules restrict any use of the information to criminally investigate or prosecute any alcohol or drug abuse patient.[facility] HospitalIn the event this information is protected by the Federal Confidentiality of Alcohol and Drug Abuse Patient Records regulations: The Federal rules restrict any use of the information to criminally investigate or prosecute any alcohol or drug abuse patient.[facility] HospitalIn the event this information is protected by the Federal Confidentiality of Alcohol and Drug Abuse Patient Records regulations: The Federal rules restrict any use of the information to criminally investigate or prosecute any alcohol or drug abuse patient.[facility] HospitalIn the event this information is protected by the Federal Confidentiality of Alcohol and Drug Abuse Patient Records regulations: The Federal rules restrict any use of the information to criminally investigate or prosecute any alcohol or drug abuse patient.[facility] HospitalIn the event this information is protected by the Federal Confidentiality of Alcohol and Drug Abuse Patient Records regulations: The Federal rules restrict any use of the information to criminally investigate or prosecute any alcohol or drug abuse patient.[facility] HospitalIn the event this information is protected by the Federal Confidentiality of Alcohol and Drug Abuse Patient Records regulations: The Federal rules restrict any use of the information to criminally investigate or prosecute any alcohol or drug abuse patient.[facility] HospitalIn the event this information is protected by the Federal Confidentiality of Alcohol and Drug Abuse Patient Records regulations: The Federal rules restrict any use of the information to criminally investigate or prosecute any alcohol or drug abuse patient.[facility] HospitalIn the event this information is protected by the Federal Confidentiality of Alcohol and Drug Abuse Patient Records regulations: The Federal rules restrict any use of the information to criminally investigate or prosecute any alcohol or drug abuse patient.[facility] HospitalIn the event this information is protected by the Federal Confidentiality of Alcohol and Drug Abuse Patient Records regulations: The Federal rules restrict any use of the information to criminally investigate or prosecute any alcohol or drug abuse patient.[facility] HospitalIn the event this information is protected by the Federal Confidentiality of Alcohol and Drug Abuse Patient Records regulations: The Federal rules restrict any use of the information to criminally investigate or prosecute any alcohol or drug abuse patient.[facility] HospitalIn the event this information is protected by the Federal Confidentiality of Alcohol and Drug Abuse Patient Records regulations: The Federal rules restrict any use of the information to criminally investigate or prosecute any alcohol or drug abuse patient.[facility] HospitalIn the event this information is protected by the Federal Confidentiality of Alcohol and Drug Abuse Patient Records regulations: The Federal rules restrict any use of the information to criminally investigate or prosecute any alcohol or drug abuse patient.[facility] HospitalIn the event this information is protected by the Federal Confidentiality of Alcohol and Drug Abuse Patient Records regulations: The Federal rules restrict any use of the information to criminally investigate or prosecute any alcohol or drug abuse patient.[facility] HospitalIn the event this information is protected by the Federal Confidentiality of Alcohol and Drug Abuse Patient Records regulations: The Federal rules restrict any use of the information to criminally investigate or prosecute any alcohol or drug abuse patient.[facility] HospitalIn the event this information is protected by the Federal Confidentiality of Alcohol and Drug Abuse Patient Records regulations: The Federal rules restrict any use of the information to criminally investigate or prosecute any alcohol or drug abuse patient.[facility] HospitalIn the event this information is protected by the Federal Confidentiality of Alcohol and Drug Abuse Patient Records regulations: The Federal rules restrict any use of the information to criminally investigate or prosecute any alcohol or drug abuse patient.[facility] HospitalIn the event this information is protected by the Federal Confidentiality of Alcohol and Drug Abuse Patient Records regulations: The Federal rules restrict any use of the information to criminally investigate or prosecute any alcohol or drug abuse patient.[facility] HospitalIn the event this information is protected by the Federal Confidentiality of Alcohol and Drug Abuse Patient Records regulations: The Federal rules restrict any use of the information to criminally investigate or prosecute any alcohol or drug abuse patient.[facility] HospitalIn the event this information is protected by the Federal Confidentiality of Alcohol and Drug Abuse Patient Records regulations: The Federal rules restrict any use of the information to criminally investigate or prosecute any alcohol or drug abuse patient.[facility] Reason for Visit (unrecogniz ed section and content) Reason Comments Follow Up Specialty Diagnoses / Procedures Referred By Anival aden Referred To Contact Family Practice / FAMILY MEDICINE Diagnoses Follow up/not seen since 02/2020 Procedures 4C EST Self Corrina Lennon, ÁLVARO.TELEGRAPHIC TYPEWRITER INSTALLER [address] [place] [address] Referral ID Status Reason Start Date Expiration Date V isits Requested Visits Authorized [id number] Closed Patient Cleared - INN Insurance Found [...] Date Comments Population Health Navigation Outreach 06/14/2022 [facility] care gaps Reason Onset Date Comments Anticoagulation 06/06/2022 Home INR Reason Onset Date Comments Anticoagulation 2022 INR result Reason Onset Date Comments Refill Request 07/22/2022 Reason Onset Date Comments Anticoagulation Telephone Fu 08/01/2022 Gabrielle e INR Result Reason Comments Consult Specialty Diagnoses / Procedures Referred By Anival t Referred To Contact Cardiology / CARD ADMIN [facility] Diagnoses Paroxysmal atrial fibrillation (HCC) Nonrheumatic aortic valve stenosis Procedures CONSULT TO CARDIOLOGY OFFICE/OUTPATIENT [facility] 60-74 MINUTES Corrina Lennon, ÁLVARO.TELEGRAPHIC TYPEWRITER INSTALLER [address] [place] [address] Card Admin [facility] [address] [place] [address] Referral ID Status Reason Start Date Expiration Date V isits Requested Visits Authorized [id number] Closed PCP Requested Referral 02/28/2022 10/15/2022 1 1 Reason Onset Date Comments QI SMITH RN 09/07/2022 Medication Ad herence review at [...] e INR Result Reason Onset Date Comments ACNiels LUIS RN 2023 Medication Ad herence review per request of payer Reason Onset Date Comments Refill Request 07/04/2023 Reason Comments 6 Month Exam Reason Comments Results Reason Onset Date Comments ACM LUIS RN 09/05/2023 Medication Ad herence review [...] TIME W/IMAGE COMPLETE Guanakito Reno MD [address] [place] [address] [place] [address] Referral ID Status Reason Start Date Expiration Date V isits Requested Visits Authorized [id number] Closed Auto-Generate d Referral 03/26/2024 04/25/2025 1 1 Reason Comments Follow Up htn- ultrasound on k idneys and labs, family worried about falls Reason Comments Bobbin Cleaner Hand - Other Reason Comments Edema Bilateral leg [...] 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 [employer] [address] [place] [address] Referral ID Status Reason Start Date Expiration Date Visits Re quested Visits Authorized [id number] 1 1 Reason Onset Date Comments Anticoagulation 07/25/2024 Patient update Reason Comments New Patient Consult Referral Josselyn Aguilar man Stenosis Carotid stenosis Reason Onset Date [...] e INR Result Reason Comments Faxed to [facility] Reason Onset Date Comments Refill Request 04/08/2025 Reason Comments Patient Question Care Teams (unrecognized sec tion and content) Body Shop Supervisor Relationship Specialty Start Date End Date Guanakito Reno MD [address] [place], [place] [id number] PCP - General Family Practice 05/24/18 13, Pharmacist [phone] [place] [address] Pharmacist Pharmacy 05/31/21 Body Shop Supervisor Relationship Specialty Start Date End Date Guanakito Reno MD [address] [place], [place] [address] PCP - General Family Practice 05/24/18 13, Pharmacist [phone] [place] [address] Pharmacist Pharmacy 05/31/21 Body Shop Supervisor Relationship Specialty Start Date End Date Guanakito Reno MD [address] [place], [place] [address] PCP - General Family Practice 05/24/18 13, Pharmacist [address] [place] [address] Pharmacist Pharmacy 05/31/21 Body Shop Supervisor Relationship Specialty Start Date End Date Guanakito Reno MD [address] [place] [address] PCP - General Family Practice 05/24/18 13, Pharmacist [phone] [place] [address] Pharmacist Pharmacy 05/31/21 Body Shop Supervisor Relationship Specialty Start Date End Date Guanakito Reno MD [address] [place] [address] PCP - General Family Practice 05/24/18, Pharmacist [phone] [place] [address] Pharmacist Pharmacy 05/31/21 Body Shop Supervisor Relationship Specialty Start Date End Date Guanakito Reno MD [address] [place] [address] PCP - General Family Practice 05/24/18, Pharmacist [phone] [place] [address] Pharmacist Pharmacy 05/31/21 Body Shop Supervisor Relationship Specialty Start Date End Date Guanakito Reno MD [address] [place] [address] PCP - General Family Practice 05/24/18, Pharmacist [phone] [place] [address] Pharmacist Pharmacy 05/31/21 Body Shop Supervisor Relationship Specialty Start Date End Date Guanakito Reno MD [address] [place] [address] PCP - General Family Practice 05/24/18 13, Pharmacist [address] [place] [address] Pharmacist Pharmacy 05/31/21 Body Shop Supervisor Relationship Specialty Start Date End Date Guanakito Reno MD [address] [place] [address] PCP - General Family Practice 05/24/18 13, Pharmacist [phone] [facility] [place] [address] Pharmacist Pharmacy 05/31/21 Body Shop Supervisor Relationship Specialty Start Date End Date Guanakito Reno MD [address] [facility] [place] [address] PCP - General Family Medicine 05/24/18 13, Pharmacist [phone] [place] [address] Pharmacist Pharmacy 05/31/21 Body Shop Supervisor Relationship Specialty Start Date End Date Guanakito Reno MD [address] [facility] [place] [address] PCP - General Family Medicine 05/24/18 13, Pharmacist [phone] [facility] [place] [address] Pharmacist Pharmacy 05/31/21 Body Shop Supervisor Relationship Specialty Start Date End Date Guanakito Reno MD [address] [place] [address] PCP - General Family Medicine 05/24/18 13, Pharmacist [phone] [place] [address] Pharmacist Pharmacy 05/31/21 Body Shop Supervisor Relationship Specialty Start Date End Date Guanakito Reno MD [address] [place] [address] PCP - General Family Medicine 05/24/18 13, Pharmacist [id number] [place] [address] Pharmacist Pharmacy 05/31/21 Body Shop Supervisor Relationship Specialty Start Date End Date Guanakito Reno MD [address] [facility] [place] [address] PCP - General Family Medicine 05/24/18 13, Pharmacist [phone] [place] [address] Pharmacist Pharmacy 05/31/21 Body Shop Supervisor Relationship Specialty Start Date End Date Guanakito Reno MD [address] [place] [address] PCP - General Family Medicine 05/24/18 13, Pharmacist [address] [facility] [place] [address] Pharmacist Pharmacy 05/31/21 Body Shop Supervisor Relationship Specialty Start Date End Date Guanakito Reno MD [address] [place] [address] PCP - General Family Medicine 05/24/18, Pharmacist [address] [place] [address] Pharmacist Pharmacy 05/31/21 Body Shop Supervisor Relationship Specialty Start Date End Date Guanakito Reno MD [address] [place] [address] PCP - General Family Medicine 05/24/18, Pharmacist [address] [place] [address] Pharmacist Pharmacy 05/31/21 Body Shop Supervisor Relationship Specialty Start Date End Date Guanakito Reno MD [address] [place] [address] PCP - General Family Medicine 05/24/18, Pharmacist [address] [place] [address] Pharmacist Pharmacy 05/31/21 Body Shop Supervisor Relationship Specialty Start Date End Date Guanakito Reno MD [address] [place] [address] PCP - General Family Medicine 05/24/18, Pharmacist [address] [facility] [place] [address] Pharmacist Pharmacy 05/31/21 Body Shop Supervisor Relationship Specialty Start Date End Date Guanakito Reno MD [address] [place] [address] PCP - General Family Medicine 05/24/18 13, Pharmacist [address] [place] [address] Pharmacist Pharmacy 05/31/21 Body Shop Supervisor Relationship Specialty Start Date End Date Guanakito Reno MD [address] [place] [address] PCP - General Family Medicine 05/24/18 13, Pharmacist [address] [place] [address] Pharmacist Pharmacy 05/31/21 Body Shop Supervisor Relationship Specialty Start Date End Date Guanakito Reno MD [address] [place] [address] PCP - General Family Medicine 05/24/18 13, Pharmacist [address] [place] [address] Pharmacist Pharmacy 05/31/21 Body Shop Supervisor Relationship Specialty Start Date End Date Guanakito Reno MD [address] [place] [address] PCP - General Family Medicine 05/24/18, Pharmacist [phone] [place] [address] Pharmacist Pharmacy 05/31/21 Body Shop Supervisor Relationship Specialty Start Date End Date Guanakito Reno MD [address] [place] [address] PCP - General Family Medicine 05/24/18 13, Pharmacist [address] [place] [address] Pharmacist Pharmacy 05/31/21 Body Shop Supervisor Relationship Specialty Start Date End Date Guanakito Reno MD [address] [place] [address] PCP - General Family Medicine 05/24/18 13, Pharmacist [address] [place] [address] Pharmacist Pharmacy 05/31/21 Body Shop Supervisor Relationship Specialty Start Date End Date Guanakito Reno MD [address] [place] [address] PCP - General Family Medicine 05/24/18 13, Pharmacist [address] [place] [address] Pharmacist Pharmacy 05/31/21 Body Shop Supervisor Relationship Specialty Start Date End Date Guanakito Reno MD [address] [place] [address] PCP - General Family Medicine 05/24/18 13, Pharmacist [address] [place] [address] Pharmacist Pharmacy 05/31/21 Body Shop Supervisor Relationship Specialty Start Date End Date Guanakito Reno MD [address] [place] [address] PCP - General Family Medicine 05/24/18, Pharmacist [address] [place] [address] Pharmacist Pharmacy 05/31/21 Body Shop Supervisor Relationship Specialty Start Date End Date Guanakito Reno MD [address] [place] [address] PCP - General Family Medicine 05/24/18 13, Pharmacist [phone] [place] [address] Pharmacist Pharmacy 05/31/21 Body Shop Supervisor Relationship Specialty Start Date End Date Guanakito Reno MD [address] [place] [address] PCP - General Family Medicine 05/24/18 13, Pharmacist [address] [place] [address] Pharmacist Pharmacy 05/31/21 Body Shop Supervisor Relationship Specialty Start Date End Date Guanakito Reno MD [address] [place] [address] PCP - General Family Medicine 05/24/18 13, Pharmacist [address] [place] [address] Pharmacist Pharmacy 05/31/21 Body Shop Supervisor Relationship Specialty Start Date End Date Guanakito Reno MD [address] [place] [address] PCP - General Family Medicine 05/24/18 13, Pharmacist [address] [place] [address] Pharmacist Pharmacy 05/31/21 Body Shop Supervisor Relationship Specialty Start Date End Date Guanakito Reno MD [address] [place] [address] PCP - General Family Medicine 05/24/18 13, Pharmacist [address] [place] [address] Pharmacist Pharmacy 05/31/21 Body Shop Supervisor Relationship Specialty Start Date End Date Guanakito Reno MD [address] [place] [address] PCP - General Family Medicine 05/24/18 13, Pharmacist [address] [place] [address] Pharmacist Pharmacy 05/31/21 Body Shop Supervisor Relationship Specialty Start Date End Date Guanakito Reno MD [address] [place] [address] PCP - General Family Medicine 05/24/18 13, Pharmacist [address] [facility] [place] [address] Pharmacist Pharmacy 05/31/21 Body Shop Supervisor Relationship Specialty Start Date End Date Guanakito Reno MD [address] [place] [address] PCP - General Family Medicine 05/24/18 13, Pharmacist [address] [place] [address] Pharmacist Pharmacy 05/31/21 Body Shop Supervisor Relationship Specialty Start Date End Date Guanakito Reno MD [address] [place] [address] PCP - General Family Medicine 05/24/18 13, Pharmacist [address] [place] [address] Pharmacist Pharmacy 05/31/21 Body Shop Supervisor Relationship Specialty Start Date End Date Guanakito Reno MD [address] [place] [address] PCP - General Family Medicine 05/24/18, Pharmacist [address] [place] [address] Pharmacist Pharmacy 05/31/21 Body Shop Supervisor Relationship Specialty Start Date End Date Guanakito Reno MD [address] [place] [address] PCP - General Family Medicine 05/24/18 13, Pharmacist [address] [place] [address] Pharmacist Pharmacy 05/31/21 Body Shop Supervisor Relationship Specialty Start Date End Date Guanakito Reno MD [address] [place] [address] PCP - General Family Medicine 05/24/18, Pharmacist [address] [place] [address] Pharmacist Pharmacy 05/31/21 Body Shop Supervisor Relationship Specialty Start Date End Date Guanakito Reno MD [address] [place] [address] PCP - General Family Medicine 05/24/18 13, Pharmacist [address] [place] [address] Pharmacist Pharmacy 05/31/21 Body Shop Supervisor Relationship Specialty Start Date End Date Guanakito Reno MD [address] [place] [address] PCP - General Family Medicine 05/24/18 13, Pharmacist [address] [place] [address] Pharmacist Pharmacy 05/31/21 Body Shop Supervisor Relationship Specialty Start Date End Date Guanakito Reno MD [address] [place] [address] PCP - General Family Medicine 05/24/18 13, Pharmacist [address] [place] [address] Pharmacist Pharmacy 05/31/21 Body Shop Supervisor Relationship Specialty Start Date End Date Guanakito Reno MD [address] [place] [address] PCP - General Family Medicine 05/24/18 13, Pharmacist [address] [place] [address] Pharmacist Pharmacy 05/31/21 Body Shop Supervisor Relationship Specialty Start Date End Date Guanakito Reno MD [address] [place] [address] PCP - General Family Medicine 05/24/18 13, Pharmacist [address] [place] [address] Pharmacist Pharmacy 05/31/21 Body Shop Supervisor Relationship Specialty Start Date End Date Guanakito Reno MD [address] [place] [address] PCP - General Family Medicine 05/24/18 13, Pharmacist [address] [place] [address] Pharmacist Pharmacy 05/31/21 Body Shop Supervisor Relationship Specialty Start Date End Date Guanakito Reno MD [address] [place] [address] PCP - General Family Medicine 05/24/18 13, Pharmacist [address] [place] [address] Pharmacist Pharmacy 05/31/21 Body Shop Supervisor Relationship Specialty Start Date End Date Guanakito Reno MD [address] [place] [address] PCP - General Family Medicine 05/24/18 13, Pharmacist [address] [place] [address] Pharmacist Pharmacy 05/31/21 Body Shop Supervisor Relationship Specialty Start Date End Date Guanakito Reno MD [address] [place] [address] PCP - General Family Medicine 05/24/18 13, Pharmacist [address] [place] [address] Pharmacist Pharmacy 05/31/21 Body Shop Supervisor Relationship Specialty Start Date End Date Guanakito Reno MD [address] [place] [address] PCP - General Family Medicine 05/24/18, Pharmacist [address] [place] [address] Pharmacist Pharmacy 05/31/21 Body Shop Supervisor Relationship Specialty Start Date End Date Guanakito Reno MD [address] [place] [address] PCP - General Family Medicine 05/24/18 13, Pharmacist [address] [place] [address] Pharmacist Pharmacy 05/31/21 Body Shop Supervisor Relationship Specialty Start Date End Date Guanakito Reno MD [address] [place] [address] PCP - General Family Medicine 05/24/18 13, Pharmacist [address]20 [facility] [place] [address] Pharmacist Pharmacy 05/31/21 Corrina Lennon APRN.TELEGRAPHIC TYPEWRITER INSTALLER [address] [place] [address] [employer] [facility] 09/23/24 Carolina Landeros DIRECTOR DIGITAL ADVERTISING.TELEGRAPHIC TYPEWRITER INSTALLER [address] [place] [address] [facility] 09/23/24 Body Shop Supervisor Relationship Specialty Start Date End Date Guanakito Reno MD [address] [place] [address] PCP - General Family Medicine 05/24/18 13, Pharmacist [address] [facility] [place] [address] Pharmacist Pharmacy 05/31/21 Corrina Lennon DIRECTOR DIGITAL ADVERTISING.TELEGRAPHIC TYPEWRITER INSTALLER [address] [place] [address] [employer] [facility] 09/23/24 Carolina Landeros, DIRECTOR DIGITAL ADVERTISING.TELEGRAPHIC TYPEWRITER INSTALLER [address] [place] [address] [employer] [facility] 09/23/24 Body Shop Supervisor Relationship Specialty Start Date End Date Guanakito Reno MD [address] [place] [address] PCP - General Family Medicine 05/24/18 13, Pharmacist [address] [facility] [place] [address] Pharmacist Pharmacy 05/31/21 Corrina Lennon DIRECTOR DIGITAL ADVERTISING.TELEGRAPHIC TYPEWRITER INSTALLER [address] [place] [address] [employer] [facility] 09/23/24 Carolina Landeros APRN.TELEGRAPHIC TYPEWRITER INSTALLER [address] [place] [address] [employer] [facility] 09/23/24 Body Shop Supervisor Relationship Specialty Start Date End Date Guanakito Reno MD [address] [place] [address] PCP - General Family Medicine 05/24/18 13, Pharmacist [address] [place] [address] Pharmacist Pharmacy 05/31/21 Corrina Lennon APRN.TELEGRAPHIC TYPEWRITER INSTALLER [address] [place] [address] [facility] 09/23/24 Carolina Landeros DIRECTOR DIGITAL ADVERTISING.TELEGRAPHIC TYPEWRITER INSTALLER [address] [place] [address] [facility] 09/23/24 Body Shop Supervisor Relationship Specialty Start Date End Date Guanakito Reno MD [address] [place] [address] PCP - General Family Medicine 05/24/18 13, Pharmacist [address] [place] [address] Pharmacist Pharmacy 05/31/21 Corrina Lennon DIRECTOR DIGITAL ADVERTISING.TELEGRAPHIC TYPEWRITER INSTALLER [address] [place] [address] [employer] [facility] 09/23/24 Carolina Landeros DIRECTOR DIGITAL ADVERTISING.TELEGRAPHIC TYPEWRITER INSTALLER [address] [place] [address] [employer] [facility] 09/23/24 Body Shop Supervisor Relationship Specialty Start Date End Date Guanakito Reno MD [address] [facility] [place] [address] PCP - General Family Medicine 05/24/18 13, Pharmacist [address] [place] [address] Pharmacist Pharmacy 05/31/21 Corrina Lennon, DIRECTOR DIGITAL ADVERTISING.TELEGRAPHIC TYPEWRITER INSTALLER [address] [facility] [place] [address] [employer] [facility] 09/23/24 Carolina Landeros DIRECTOR DIGITAL ADVERTISING.TELEGRAPHIC TYPEWRITER INSTALLER [address] [facility] [place] [address] [employer] [facility] 09/23/24 Body Shop Supervisor Relationship Specialty Start Date End Date Guanakito Reno MD [address] [facility] [place] [address] PCP - General Family Medicine 05/24/18 13, Pharmacist [address] [place] [address] Pharmacist Pharmacy 05/31/21 Corrina Lennon, DIRECTOR DIGITAL ADVERTISING.TELEGRAPHIC TYPEWRITER INSTALLER [address] [facility] [place] [address] [employer] [facility] 09/23/24 Carolina Landeros, DIRECTOR DIGITAL ADVERTISING.TELEGRAPHIC TYPEWRITER INSTALLER [address] [facility] [place] [address] [employer] [facility] 09/23/24 Body Shop Supervisor Relationship Specialty Start Date End Date Guanakito Reno MD [address] [facility] [place] [address] PCP - General Family Medicine 05/24/18 13, Pharmacist [address] [facility] [place] [address] Pharmacist Pharmacy 05/31/21 Corrina Lennon APRN.TELEGRAPHIC TYPEWRITER INSTALLER [address] [place] [address] [employer] [facility] 09/23/24 Carolina Landeros APRN.TELEGRAPHIC TYPEWRITER INSTALLER [address] [place] [address] [employer] [facility] 09/23/24 Body Shop Supervisor Relationship Specialty Start Date End Date Guanakito Reno MD [address] [place] [address] PCP - General Family Medicine 05/24/18 13, Pharmacist [address] [place] [address] Pharmacist Pharmacy 05/31/21 Corrina Lennon APRN.TELEGRAPHIC TYPEWRITER INSTALLER [address] [place] [address] [employer] [facility] 09/23/24 Carolina Landeros APRN.TELEGRAPHIC TYPEWRITER INSTALLER [address] [place] [address] [employer] [facility] 09/23/24 Body Shop Supervisor Relationship Specialty Start Date End Date Guanakito Reno MD [address] [place] [address] PCP - General Family Medicine 05/24/18 13, Pharmacist [address] [place] [address] Pharmacist Pharmacy 05/31/21 Corrina Lennon APRN.TELEGRAPHIC TYPEWRITER INSTALLER [address] [place] [address] [employer] [facility] 09/23/24 Carolina Landeros APRN.TELEGRAPHIC TYPEWRITER INSTALLER [address] [facility] [place] [address] [employer] [facility] 09/23/24 Body Shop Supervisor Relationship Specialty Start Date End Date Guanakito Reno MD [address] [facility] [place] [address] PCP - General Family Medicine 05/24/18 13, Pharmacist [address] [place] [address] Pharmacist Pharmacy 05/31/21 Corrina Lennon APRN.TELEGRAPHIC TYPEWRITER INSTALLER [address] [facility] [place] [address] [employer] [facility] 09/23/24 Carolina Landeros APRN.TELEGRAPHIC TYPEWRITER INSTALLER [address] [facility] [place] [address] [facility] 09/23/24 Body Shop Supervisor Relationship Specialty Start Date End Date Guanakito Reno MD [address] [facility] [place] [address] PCP - General Family Medicine 05/24/18 13, Pharmacist [address] [place] [address] Pharmacist Pharmacy 05/31/21 Corrina Lennon APRN.TELEGRAPHIC TYPEWRITER INSTALLER [address] [facility] [place] [address] [employer] [facility] 09/23/24 Carolina Landeros APRN.TELEGRAPHIC TYPEWRITER INSTALLER [address] [facility] [place] [address] [employer] 09/23/24 Team Status: Active Member Role/Relationship [...] BE BASED ON THE PRIMARY CLINICAL RECORDS. [facility] [employer] [facility]. provides no warranty or guarantee of the accuracy or completeness of information in this document.
[2025-08-14 08:49] LABS: INR Fingerstick 1.9
== END ==
LOC: OLS.SW 05:00
PROVIDERS: PCP Family Medicine; Visit Provider Family Medicine
DX: I48.91 Unspecified atrial fibrillation (principal)
CPT/HCPCS: 36416; 85610

== ENCOUNTER → 2025-08-19 05:00 | Outpatient (REF) | payer MEDICARE, SELFPAY ==
--- OUTSIDE RECORDS SUMMARY | 2025-08-19 04:19 | XMS RPT_ITS | CCD ---
Author Organization [facility] Care Team Providers Care Fiber Optic Technician Name Role Phone VIPIN CARDONA Unavailable Unavailable [...] Guanakito Reno MD Primary Care Provider Haagen CHILDREN'S AIDE.ENGINEER SOILS, Corrina Unavailable Suppan CHILDREN'S AIDE.ENGINEER SOILS, Carolina A Unavailable Suppan CHILDREN'S AIDE.ENGINEER SOILS, Carolina A Unavailable Dr. Guanakito Reno MD Primary Care Provider Dr. Guanakito Reno MD Referring Provider Josafat García MD Attending Provider [phone] Josafat García MD Referring Provider [phone] Dr. Bianka Gonzalez MD Attending Provider Unavaila Dr. Josafat Ibrahim MD Attending Provider Unavail able Dr. David Navarrete DO Attending Provider Dr. Burt Zamora MD Attending Provider Alfred JAMES, Dr. Maurice Referring Provider Unavail able SUPPCAROLINA LUNA Attending Unavailable SHADIA, GUANAKITO J Primary Care Unavailable SUPPAN CAROLINA Referring Unavailable SHADIA, GUANAKITO J Primary Care Unavailable SUPPCAROLINA LUNA Attending Unavailable SHADIA, GUANAKITO J Primary Care Unavailable KEDAR HERNANDEZ Attending Unava ilable SHADIA, GUANAKITO J Primary Care Unavailable [place], Guanakito Primary Care Unavailable Alfred ORTEZ, Josafat Attending Unavailable Alfred ORTEZ, Josafat Attending Unavailable Josafat Oliva Referring Unavailable Shadia, Guanakito Primary Care Unavailable Alfred ORTEZ, Josafat Attending Unavailable Josafat Oliva Referring Unavailable Shadia, Guanakito Primary Care Unavailable Alfred ORTEZ, Josafat Attending Unavailable Alfred ORTEZ, Josafat Referring Unavailable [place], Guanakito Primary Care Unavailable [place], Guanakito Primary Care Unavailable Alfred ORTEZ, Josafat Attending Unavailable Alfred ORTEZ, Josafat Attending Unavailable Shadia, Guanakito Primary Care Unavailable Shadia, Guanakito Primary Care Unavailable Alfred ORTEZ, Josafat Attending Unavailable Alfred ORTEZ, Josafat Attending Unavailable Shadia, Guanakito Primary Care Unavailable Alfred ORTEZ, Josafat Attending Unavailable [place], Guanakito Primary Care Unavailable Josafat Oliva Attending Unavailable [place], Guanakito Primary Care Unavailable Bianka Olivera Attending Unavailable Shadia, Guanakito Primary Care Unavailable Raquel, Josafat Referring Unavailable Raquel, Josafat Attending Unavailable Shadia, Guanakito Primary Care Unavailable Alfred ORTEZ, Josafat Attending Unavailable [place], Guanakito Primary Care Unavailable Alfred ORTEZ, Josafat Attending Unavailable Shadia, Guanakito Primary Care Unavailable Alfred ORTEZ, Josafat Attending Unavailable Shadia, Guanakito Primary Care Unavailable Guamya Bianka ORTEZ Attending Unavailable [place], Guanakito Primary Care Unavailable [place], Guanakito Primary Care Unavailable Josafat Oliva Attending Unavailable Shadia, Guanakito Referring Unavailable David Navarrete Attending Unavailable Shadia, Guanakito Primary Care Unavailable Josafat García Attending Unavailable [place], Guanakito Referring Unavailable [place], Guanakito Primary Care Unavailable Burt Zamora Attending Unavailable [place], Guanakito Primary Care Unavailable Alfred ORTEZ, Josafat Attending Unavailable Shadia, Guanakito Primary Care Unavailable Alfred ORTEZ, Josafat Attending Unavailable Shadia, Guanakito Primary Care Unavailable Alfred ORTEZ, Josafat Attending Unavailable Shadia, Guanakito Primary Care Unavailable Allergies Allergy Classification Reported Allergen(s) Allergy Type Date of Onset Reaction(s) Facility (4 sources) Environmental Allergies: Uncoded; Translations: [Environmental Allergies: Uncoded] Allergy to substance 5 [facility] Medications Current Medications Medication Drug Class(es) [...] hydrochloride 10 mg oral tablet (20 sources) K-fvqqqt-T-aspart ate Receptor Antagonist Start: 08-21-2019 End: 01-21-2025 [...] 4 11-11-2016 Chronic Other aftercare (2 sources) [facility] (current) use of anticoagulants; Translations: [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] Onset: 0 Episodic Other aftercare (1 source) Other director 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 (current) drug therapy; Translations: [Other director 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 (current) drug therapy] Onset: 5 Episodic Other [...] sources) Long-term current use of anticoagulant; Translations: [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 [place], [place], [id number] Protime Coagsen 21.4 SEC High 11.7-14.9 [facility] Comment on above: Performed By: #### L 289.0264 #### [facility] [address] [place], [place], [id number] [facility] Telephone (AGVASACC) -------- PAULACAL ([id number]) 1945 M Date Time Provider Department 08/11/25 LAURA IRAHETA During your visit today, we recorded the following information about you: Jimmy Kwon 08/11/2025 10:52 AM Signed Annual f/u - Bilateral carotid artery stenosis, hx of carotid endarterectomy - US PRIOR Spoke w/daughter first - stated he was now a resident of [facility]. Updated pt's demographics with new info/ph numbers. Transferred to and left detailed VM with [place]'s lactation coordinatorYanci (schedule's resident's appts) to schedule pt's US [...] stenosis of unspecified carotid a*10/25/2013 03/26/2024 Frequency [[id number]] 02/11/2016 03/26/2024 BPH (benign prostatic hypertrophy) with [...] Hypertensive kidney disease with stage 3 chroni*01/29/2020 [facility] (current) use of anticoagulants [Z79.*02/04/2020 Dementia, vascular, [...] by JIMMY KWON on 08/11/25 [facility] Molly 08-01-2025 KOURTNEYN Telephone (FAMPWS) -------- CAL MITCHELL ([id number]) 1945 M Date Time Provider Department 08/01/25 GUANAKITO RENOWS During your visit today, we recorded the following information about you: Olivia Heredia, BENJIE 08/01/2025 10:33 AM Signed Patient's son Gustavo calling in asking for advise from Dr. Reno, for patient. Gustavo states patient is now receiving director 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 care at [facility] and his care is being managed by [...] next 3 years, if needed? Please advise sonGustavo. [phone] Guanakito Reno MD 08/01/2025 11:00 AM Signed [...] Fully Assessed Reason for Visit: Patient Question [7357] Prescriptions as of 08/01/2025 - warfarin (COUMADIN) [...] 5 min x3 - blood sugar diagnostic (DatalotTOUCH ULTRA TEST) test strip Test blood sugar(s) [...] stenosis of unspecified carotid a*10/25/2013 03/26/2024 Frequency [[id number]] 02/11/2016 03/26/2024 BPH (benign prostatic hypertrophy) with [...] Hypertensive kidney disease with stage 3 chroni*01/29/2020 [facility] (current) use of anticoagulants [Z79.*02/04/2020 Dementia, vascular, mixed, with behavioral dist*08/26/2020 08/14/2023 Obesity, Class II, BMI 35-39.9 [E66.812] 08/15/2022 Aortic valve disorder [I35.9] 08/15/2022 Abnormal electrocardiography [R94.31] 08/14/2023 Diagnosed: 08/14/2023 First de (more content not included)... Normal [facility] Prothrombin Time w/INRon INR Coag (PPP) [Relative time] 2.0 {INR} Normal [facility] Comment on above: Order Comment: 317.1 Performed By: #### L 300.3900 #### [facility] [address] [place], [address] PT Coag (PPP) [Time] 22.7 s High 11.7-14.[address] [facility] Comment on above: Order Comment: 317.1 Performed By: #### L 300.3900 #### [facility] [address] [place], [address] Protime w/INR Fingerstickon 07-17-2025 INR Coag (PPP) [Relative time] 2.0 {INR} Normal [facility] Comment on above: Result Comment: Crit ical Value > 4.0 Performed By: #### L 300.3900 #### [facility] [address] [place], [address] Protime Coagsen 22.3 SEC High 11.7-14.9 [facility] Comment on above: Performed By: #### L 300.3900 #### [facility] [address] [place], [address] Prothrombin Time w/INRon INR Coag (PPP) [Relative time] 2.0 {INR} Normal [facility] Comment on above: Order Comment: 317.1 Performed By: #### L 300.3900 #### [facility] [address] [place], [address] PT Coag (PPP) [Time] 22.8 s High 11.7-14.[address] [facility] Comment on above: Order Comment: 317.1 Performed By: #### L 300.3900 #### [facility] [address] [place], [address] Prothrombin Time w/INRon INR Coag (PPP) [Relative time] 2.1 {INR} Normal [facility] Comment on above: Performed By: #### L 300.3900 #### [facility] [address] [place], [address] PT Coag (PPP) [Time] 24.2 s High 11.7-14.[address] [facility] Comment on above: Performed By: #### L 300.3900 #### [facility] [address] [place], [address] Protime w/INR Fingerstickon 06-17-2025 INR Coag (PPP) [Relative time] 2.1 {INR} Normal [facility] Comment on above: Result Comment: Crit ical Value > 4.0 Performed By: #### L 300.3900 #### [facility] [address] [place], [address] Protime Coagsen 22.8 SEC High 11.7-14.9 [facility] Comment on above: Performed By: #### L 300.3900 #### [facility] [address] [place], [address] Prothrombin Time w/INRon INR Coag (PPP) [Relative time] 1.9 {INR} Normal [facility] Comment on above: Order Comment: 317.1 Performed By: #### L 300.3900 #### [facility] [address] [place], [address] PT Coag (PPP) [Time] 22.4 s High 11.7-14.[address] [facility] Comment on above: Order Comment: 317.1 Performed By: #### L 300.3900 #### [facility] [address] [place], [address] Prothrombin Time w/INRon INR Normal [facility] Comment on above: Result Comment: PLEA SE SEE [id number] Performed By: #### L 300.3900 #### [facility] [address] [place], [address] PROTIME Normal 11.7-14.9 [facility] Comment on above: Result Comment: PLEA SE SEE [id number] Performed By: #### L 300.3900 #### [facility] [address] [place], [address] International normalized rat io (INR) calculationOrdered By: Josafat Simon on 06-03-2025 INR Coag (Bld) [Relative time] 3.0 {INR} [facility] Prothrombin Time w/INRon INR Coag (PPP) [Relative time] 3.0 {INR} Normal [facility] Comment on above: Order Comment: 317.1 Performed By: #### L 300.3900 #### [facility] [address] [place], [address] (818) PT Coag (PPP) [Time] 31.4 s High 11.7-14.[address] [facility] Comment on above: Order Comment: 317.1 Performed By: #### L 300.3900 #### [facility] [address] [facility] [address] ([phone] Prothrombin timeOrdered By: Josafat iSmon on 06-03-2025 PT Coag (PPP) [Time] 31.4 s High 11.7-14.[address] [facility] International normalized rat io (INR) measurement by fingerstickOrdered By: Josafat Simon on 05-27-2025 INR Coag (BldC) [Relative time] 2.3 [facility] Comment on above: Critical Value > 4.0 Protime w/INR Fingerstickon 05-27-2025 INR Coag (PPP) [Relative time] 2.3 {INR} Normal [facility] Comment on above: Result Comment: Crit ical Value > 4.0 Performed By: #### L 300.3900 #### [facility] [address] [place], [address] Protime Coagsen 24.6 SEC High 11.7-14.9 [facility] Comment on above: Performed By: #### L 300.3900 #### [facility] [address] [place], [address] Whole blood prothrombin time Ordered By: Josafat Simon on 05-27-2025 PT Coag (Bld) [Time] 24.6 s High 11.7-14.[address] [facility] International normalized rat io (INR) measurement by fingerstickOrdered By: Josafat Simon on 05-20-2025 INR Coag (BldC) [Relative time] 2.7 [facility] Comment on above: Critical Value > 4.0 Protime w/INR Fingerstickon 05-20-2025 INR Coag (PPP) [Relative time] 2.7 {INR} Normal [facility] Comment on above: Result Comment: Crit ical Value > 4.0 Performed By: #### L 300.3900 #### [facility] [address] [place], [address] Protime Coagsen 28.2 SEC High 11.7-14.9 [facility] Comment on above: Performed By: #### L 300.3900 #### [facility] [address] [place], [address] Whole blood prothrombin time Ordered By: Josafat Simon on 05-20-2025 PT Coag (Bld) [Time] 28.2 s High 11.7-14.[address] [facility] International normalized rat io (INR) calculationOrdered By: Josafat Simon on 05-15-2025 INR Coag (Bld) [Relative time] 2.3 {INR} [facility] Prothrombin Time w/INRon INR Coag (PPP) [Relative time] 2.3 {INR} Normal [facility] Comment on above: Order Comment: 317.1 Performed By: #### L 300.3900 #### [facility] [address] [place], [place], [id number] Prothrombin timeOrdered By: Josafat Simon on 05-15-2025 PT Coag (PPP) [Time] 25.3 s High 11.7-14.[address] [facility] Comment on above: Order Comment: 317.1 Performed By: #### L 300.3900 #### [facility] [address] [place], [address] International normalized rat io (INR) calculationOrdered By: Josafat Simon on 05-13-2025 INR Coag (Bld) [Relative time] 1.7 {INR} [facility] Prothrombin Time w/INRon INR Coag (PPP) [Relative time] 1.7 {INR} Normal [facility] Comment on above: Order Comment: 317.1 Performed By: #### L 300.3900 #### [facility] [address] [place], [address] PT Coag (PPP) [Time] 20.6 s High 11.7-14.[address] [facility] Comment on above: Order Comment: 317.1 Performed By: #### L 300.3900 #### [facility] [address] [place], [address] Prothrombin timeOrdered By: Josafat Simon on 05-13-2025 PT Coag (PPP) [Time] 20.6 s High 11.7-14.[address] [facility] International normalized rat io (INR) calculationOrdered By: Josafat Simon on 05-08-2025 INR Coag (Bld) [Relative time] 3.2 {INR} [facility] Prothrombin Time w/INRon INR Coag (PPP) [Relative time] 3.2 {INR} Normal [facility] Comment on above: Order Comment: 317.1 Performed By: #### L 300.3900 #### [facility] [address] [place], [address] PT Coag (PPP) [Time] 33.1 s High 11.7-14.[address] [facility] Comment on above: Order Comment: 317.1 Performed By: #### L 300.3900 #### [facility] [address] [place], [address] Prothrombin timeOrdered By: Josafat Simon on 05-08-2025 PT Coag (PPP) [Time] 33.1 s High 11.7-14.[address] [facility] International normalized rat io (INR) calculationOrdered By: Josafat Simno on 05-06-2025 INR Coag (Bld) [Relative time] 4.1 {INR} High [facility] Comment on above: CRITICAL VALUE ZABALA D TO IRMA SOLOMON (OLS.)05/06/25 0801 Travis Yost.RESULTS READ BACK BY SAME. Prothrombin Time w/INRon INR Coag (PPP) [Relative time] 4.1 {INR} Invalid Interpretation Code [facility] Comment on above: Order Comment: FINGE RSTICK CONFIRMATION Result Comment: CRIT ICAL VALUE CALLED TO IRMA SOLOMON (OLS.) 05/06/25 0801 Travis Yost. RESULTS READ BACK BY SAME. Performed By: #### L 300.3900 #### [facility] [address] [place], [place], [phone] PT Coag (PPP) [Time] 40.8 s High 11.7-14.[address] [facility] Comment on above: Order Comment: FINGE RSTICK CONFIRMATION Performed By: #### L 300.3900 #### [facility] [address] [place], [address] Prothrombin timeOrdered By: Josafat Simon on 05-06-2025 PT Coag (PPP) [Time] 40.8 s High 11.7-14.[address] [facility] Protime w/INR Fingerstickon 05-06-2025 INR Coag (PPP) [Relative time] 4.3 {INR} Invalid Interpretation Code [facility] Comment on above: Result Comment: Crit ical Value > 4.0 Performed By: #### L 300.3900 #### [facility] [address] [place], [place], [phone] ([phone] Protime Coagsen 42.3 SEC High 11.7-14.9 [facility] Comment on above: Performed By: #### L 300.3900 #### [facility] [address] [place], [address] Whole blood prothrombin time Ordered By: Josafat Simon on 05-06-2025 PT Coag (Bld) [Time] 42.3 s High 11.7-14.[address] [facility] Orthopedic Visit Reporton Orthopedic Visit Report [facility] [facility] [address] [place] [address] OFFICE VISIT Date of Service: 05/02/25 MR#: [id number] Acct: [id number] Name: CAL MITCHELL Rep #: [id number] : 1945 Provider: Dr. David granados DO Age/Sex: 79/M Location: [facility] Status: Signed Intake Vital Signs 03/07/25 12:57 [...] History acetaminophen 650 mg rectal 650 mg WA Q4H PRN 05/02/25 5 History suppository aluminum-mag hydroxide-simethicone 30 ml PO Q4H PRN 05/02/25 History 200 mg-200 mg-20 mg/5 mL oral susp (Antacid) bisacodyl 10 mg rectal suppository 10 mg WA QDAY PRN 05/02/2505/02 History (Dulcolax (bisacodyl)) dextrose [...] hr sodium phosphates 19 gram-7 118 ml WA ONCE PRN 05/02/25 History gram/118 mL enema [...] decisions made by me, Dr. David Navarrete, 05/02/25 0811. Part of today???s visit was [...] is here today with his son and pjanksky-ny-qws. Usually ambulates with a walker or a cane. Had a fall. Was mainly complaining about pain to the upper extremity was seen in a peripheral hospital referred here given a sling they found approximately wrist fracture on the right side. The patient does not speak very much but he converses overall well he is yqwou-jten-skstnuqx fairly stoic. Plan:79-year-old man with a (more content not included)... Normal [facility] Shoulder min 2 Viewson 05-02 Shoulder min 2 Views [facility] Imaging Services [address] [place] [address] Shoulder min 2 Views MR#: [id number] Acct: [id number] Name: CAL MITCHELL Rep #: [id number] : 1945 M 79 From: Magdalena Lala PCP: Dr. Guanakito Reno MD Status: DEP AMB Study: Shoulder min 2 Views Date of Exam: 05/02/25 Exam# [id number] Ordering Dr: David Navarrete DO PROCEDURE: SHOULDER [...] changes involving the glenohumeral joint. Reading Location: [id number] CC: Dr. David Navarrete DO; Dr. Guanakito Reno MD Manufacturing Supervisor 2Nd Shift: Signed Normal [facility] International normalized rat io (INR) calculationOrdered By: Josafat Simon on 05-01-2025 INR Coag (Bld) [Relative time] 3.2 {INR} [facility] Prothrombin Time w/INRon INR Coag (PPP) [Relative time] 3.2 {INR} Normal [facility] Comment on above: Performed By: #### L 600.3900 #### [facility] [address] [place], [address] PT Coag (PPP) [Time] 33.6 s High 11.7-14.[address] [facility] Comment on above: Performed By: #### L [id number] #### [facility] [address] [place], [address] Prothrombin timeOrdered By: Josafat Simon on 05-01-2025 PT Coag (PPP) [Time] 33.6 s High 11.7-14.[address] [facility] International normalized rat io (INR) calculationOrdered By: Josafat Simon on 04-29-2025 INR Coag (Bld) [Relative time] 3.1 {INR} [facility] Prothrombin Time w/INRon INR Coag (PPP) [Relative time] 3.1 {INR} Normal [facility] Comment on above: Performed By: #### L 300.3900 #### [facility] [address] [place], [address] Prothrombin timeOrdered By: Josafat Simon on 04-29-2025 PT Coag (PPP) [Time] 32.2 s High 11.7-14.[address] [facility] Comment on above: Performed By: #### L 300.3900 #### [facility] [address], [address] International normalized rat io (INR) measurement by fingerstickOrdered By: Josafat Simon on 04-24-2025 INR Coag (BldC) [Relative time] 3.5 [facility] Comment on above: Critical Value > 4.0 Protime w/INR Fingerstickon 04-24-2025 INR Coag (PPP) [Relative time] 3.5 {INR} Normal [facility] Comment on above: Result Comment: Crit ical Value > 4.0 Performed By: #### L 300.3900 #### [facility] [address], [address] Protime Coagsen 35.4 SEC High 11.7-14.9 [facility] Comment on above: Performed By: #### L 300.3900 #### [facility] [address] [place], [address] Whole blood prothrombin time Ordered By: Josafat Simon on 04-24-2025 PT Coag (Bld) [Time] 35.4 s High 11.7-14.[address] [facility] Anion gap in Serum or Plasma Ordered By: Bianka Gonzalez on 04-17-2025 Anion gap [Moles/Vol] 10 mmol/L 5-15 [facility] BUN/creatinine ratioOrdered By: Bianka Gonzalez on 04-17-2025 Urea nitrogen/Creatinine [Mass ratio] 21.1 mg/mg High 10-20 [facility] Basic Metabolic Profile (BMP )on 04-17-2025 BUN/CRE 21.1 RATIO High 10-20 [facility] Comment on above: Order Comment: 213 Performed By: #### L 300.3900, L100.0500, L500.2500 #### [facility] [address] [place], [address] Calcium [Mass/Vol] 8.2 mg/dL Normal 7.6-11.0 [facility] Comment on above: Order Comment: 213 Performed By: #### L 300.3900, L100.0500, L500.2500 #### [facility] [address] [place], [address] Chloride [Moles/Vol] 111 mmol/L High 98-[address] [facility] Comment on above: Order Comment: 213 Performed By: #### L 300.3900, L100.0500, L500.2500 #### [facility] [address] [place], [address] CO2 [Moles/Vol] 17.2 mmol/L Low 21.0-32.0 [facility] Comment on above: Order Comment: 213 Performed By: #### L 300.3900, L100.0500, L500.2500 #### [facility] [address] [place], [address] Creatinine [Mass/Vol] 2.45 mg/dL High 0.70-1.20 [facility] Comment on above: Order Comment: 213 Performed By: #### L 300.3900, L100.0500, L500.2500 #### [facility] [address] [place], [address] GAP 10 Normal -15 [facility] Comment on above: Order Comment: 213 Performed By: #### L 300.3900, L100.0500, L500.2500 #### [facility] [address] [place], [address] GFR/1.73 sq M.predicted among non-blacks MDRD (S/P/Bld) [Vol rate/Area] 26 mL/min/{1.73_m2} Low >60 [facility] Comment on above: Order Comment: 213 Result Comment: mL/m in/1.73m2 CKD-EPI Creatinine Equation (2020) Performed By: #### L 300.3900, L100.0500, L500.2500 #### [facility] [address] [place], [address] Glucose [Mass/Vol] 137 mg/dL High 70-99 [facility] Comment on above: Order Comment: 213 Performed By: #### L 300.3900, L100.0500, L500.2500 #### [facility] [address] [place], [address] Potassium [Moles/Vol] 4.9 mmol/L Normal 3.3-5.1 [facility] Comment on above: Order Comment: 213 Performed By: #### L 300.3900, L100.0500, L500.2500 #### [facility] [address] [place], [address] Sodium [Moles/Vol] 139 mmol/L Normal 133-145 [facility] Comment on above: Order Comment: 213 Performed By: #### L 300.3900, L100.0500, L500.2500 #### [facility] [address] [place], [address] Urea nitrogen [Mass/Vol] 52 mg/dL High 4-19 [facility] Comment on above: Order Comment: 213 Performed By: #### L 300.3900, L100.0500, L500.2500 #### [facility] [address] [place], [address] CBC-Complete Blood Cnt No Di ffon 04-17-2025 Erythrocyte distribution width (RBC) [Ratio] 16.4 % High 11.6-14.6 [facility] Comment on above: Order Comment: 213 Performed By: #### L 300.3900, L100.0500, L500.2500 #### [facility] [address] [place], [address] Hematocrit (Bld) [Volume fraction] 35.2 % Low 40-54 [facility] Comment on above: Order Comment: 213 Performed By: #### L 300.3900, L100.0500, L500.2500 #### [facility] [address] [place], [address] Hemoglobin (Bld) [Mass/Vol] 10.6 g/dL Low 13.0-16.5 [facility] Comment on above: Order Comment: 213 Performed By: #### L 300.3900, L100.0500, L500.2500 #### [facility] [address] [place], [address] MCH (RBC) [Entitic mass] 29.2 pg Normal 27.0-32.0 [facility] Comment on above: Order Comment: 213 Performed By: #### L 300.3900, L100.0500, L500.2500 #### [facility] [address] [place], [address] MCHC (RBC) [Mass/Vol] 30.1 g/dL Low 32-36 [facility] Comment on above: Order Comment: 213 Performed By: #### L 300.3900, L100.0500, L500.2500 #### [facility] [address] [place], [address] MCV (RBC) [Entitic vol] 97.0 fL High 80-94 [facility] Comment on above: Order Comment: 213 Performed By: #### L 300.3900, L100.0500, L500.2500 #### [facility] [address] [place], [address] Platelet mean volume (Bld) [Entitic vol] 10.0 fL Normal 6.2-12.0 [facility] Comment on above: Order Comment: 213 Performed By: #### L 300.3900, L100.0500, L500.2500 #### [facility] [address] [place], [address] Platelets (Bld) [#/Vol] 161 10*3/uL Normal 150-450 [facility] Comment on above: Order Comment: 213 Performed By: #### L 300.3900, L100.0500, L500.2500 #### [facility] [address] [place], [address] RBC (Bld) [#/Vol] 3.63 10*6/uL Low 4.6-6.2 [facility] Comment on above: Order Comment: 213 Performed By: #### L 300.3900, L100.0500, L500.2500 #### [facility] [address] [place], [address] RDW SD 58.6 fl High 35.1-43.9 [facility] Comment on above: Order Comment: 213 Performed By: #### L 300.3900, L100.0500, L500.2500 #### [facility] [address] [place], [address] WBC (Bld) [#/Vol] 7.2 10*3/uL Normal 4.4-11.0 [facility] Comment on above: Order Comment: 213 Performed By: #### L 300.3900, L100.0500, L500.2500 #### [facility] [address] [place], [address] Carbon dioxide, total [Moles /volume] in Central venous bloodOrdered By: Bianka Gonzalez on 04-17-2025 CO2 [Moles/Vol] 17.2 mmol/L Low 21.0-32.0 [facility] Chloride assayOrdered By: Josr Gonzalez on 04-17-2025 Chloride [Moles/Vol] 111 mmol/L High 98-[address] [facility] Erythrocyte distribution wid th ratioOrdered By: Bianka Gonzalez on 04-17-2025 Erythrocyte distribution width (RBC) [Ratio] 16.4 % High 11.6-14.6 [facility] Erythrocyte distribution wid th standard deviationOrdered By: Bianka Gonzalez on 04-17-2025 Erythrocyte distribution width (RBC) [Ratio] 58.6 fl High 35.1-43.9 [facility] Glomerular filtration rate ( GFR) estimation/1.73 sq m using serum, plasma, or whole bOrdered By: Bianka Gonzalez on 04-17-2025 GFR/1.73 sq M.predicted among non-blacks MDRD (S/P/Bld) [Vol rate/Area] 26 mL/min/{1.73_m2} Low >60 [facility] Comment on above: mL/min/1.73m2 CKD-EP I Creatinine Equation (2020) Hematocrit Auto (Bld) [Volum e fraction]Ordered By: Bianka Gonzalez on 04-17-2025 Hematocrit (Bld) [Volume fraction] 35.2 % Low 40-54 [facility] Hemoglobin measurementOrdere d By: Bianka Gonzalez on 04-17-2025 Hemoglobin (Bld) [Mass/Vol] 10.6 g/dL Low 13.0-16.5 [facility] International normalized rat io (INR) calculationOrdered By: Bianka Gonzalez on 04-17-2025 INR Coag (Bld) [Relative time] 2.7 {INR} [facility] MCV (mean corpuscular volume ) determinationOrdered By: Bianka Gonzalez on 04-17-2025 MCV (RBC) [Entitic vol] 97.0 fL High 80-94 [facility] Mean corpuscular hemoglobin (MCH) determinationOrdered By: Bianka Gonzalez on 04-17-2025 MCH (RBC) [Entitic mass] 29.2 pg 27.0-32.0 [facility] Mean corpuscular hemoglobin concentration (MCHC) determinationOrdered By: Bianka Gonzalez on 04-17-2025 MCHC (RBC) [Mass/Vol] 30.1 g/dL Low 32-36 [facility] Mean platelet volume determi nationOrdered By: Bianka Gonzalez on 04-17-2025 Platelet mean volume (Bld) [Entitic vol] 10.0 fL 6.2-12.0 [facility] Platelet countOrdered By: Josr Gonzalez on 04-17-2025 Platelets (Bld) [#/Vol] 161 10*3/uL 150-450 [facility] Potassium measurement (mass/ volume)Ordered By: Bianka Gonzalez on 04-17-2025 Potassium (Unsp spec) [Mass/Vol] 4.9 mmol/L 3.3-5.1 [facility] Prothrombin Time w/INRon INR Coag (PPP) [Relative time] 2.7 {INR} Normal [facility] Comment on above: Order Comment: 213 Performed By: #### L 300.3900, L100.0500, L500.2500 #### [facility] [address] [place], [address] PT Coag (PPP) [Time] 29.7 s High 11.7-14.[address] [facility] Comment on above: Order Comment: 213 Performed By: #### L 300.3900, L100.0500, L500.2500 #### [facility] [address] [place], [address] Prothrombin timeOrdered By: Bianka Gonzalez on 04-17-2025 PT Coag (PPP) [Time] 29.7 s High 11.7-14.[address] [facility] RBC Auto (Bld) [#/Vol]Ordere d By: Bianka Gonzalez on 04-17-2025 RBC (Bld) [#/Vol] 3.63 10*6/uL Low 4.6-6.2 [facility] Serum creatinine measurement (mass/volume)Ordered By: Bianka Gonzalez on 04-17-2025 Creatinine [Mass/Vol] 2.45 mg/dL High 0.70-1.20 [facility] Serum glucose measurement (m ass/volume)Ordered By: Bianka Gonzalez on 04-17-2025 Glucose [Mass/Vol] 137 mg/dL High 70-99 [facility] Serum or plasma calcium cornelius urement (mass/volume)Ordered By: Biankashaun Gonzalez on 04-17-2025 Calcium [Mass/Vol] 8.2 mg/dL 7.6-11.0 [facility] Serum or plasma urea nitroge n measurement (mass/volume)Ordered By: Bianka Gonzalez on 04-17-2025 Urea nitrogen [Mass/Vol] 52 mg/dL High 4-19 [facility] Sodium levelOrdered By: Nestor Gonzalez on 04-17-2025 Sodium [Moles/Vol] 139 mmol/L 133-145 [facility] White blood cell (WBC) count Ordered By: Bianka Gonzalez on 04-17-2025 WBC (Bld) [#/Vol] 7.2 10*3/uL 4.4-11.0 [facility] CNPNon 04-15-2025 CNPN Telephone (MIGUELMTE) -------- CAL MITCHELL ([id number]) 1945 M Date Time Provider Department 04/15/25 TWIN [place]LE During your visit today, we recorded the following information about you: Twin Cloe [facility] 04/15/2025 9:12 AM Signed [facility] Ambulatory Pharmacy Anticoagulation Clinic Anticoagulation Episode Summary Anticoagulation Care Providers Provider Role Specialty Phone number Guanakito Reno MD [facility] [phone] Cal Mitchell is a 79 year old [...] Pharmacy Anticoagulation Clinic Pharm[facility] Pager: [phone]. Twin Cole RPh 04/29/2025 8:54 AM Signed [...] on an injectable anticoagulant - No Twin Vinicionicole, [facility] Twin Cole [facility] 05/06/2025 10:59 AM Signed Spoke to patient's daughter. Patient has moved to [facility]. His INRs are monitored there. Will discharge patient from [facility] Daniel (Shipping And Receiving Supervisor)Ashley 05/06/2025 2:31 PM Signed Pharmacy Anticoagulation Clinic Discharge completed at this time. Patient may be re-referred, if deemed appropriate. Ashley Hameed CPhT (Move In History) Pharmacy Anticoagulation Clinic Allergies As of Date: [...] guidelines link (more content not included)... Normal [facility] CNPNon 04-14-2025 [facility] ([facility]) -------- CAL MITCHELL ([id number]) 1945 M Date Time Provider Department 04/14/25 [facility] During your visit today, we recorded the following information about you: Jonelle Worley LPN 04/14/2025 12:59 PM Signed Patient son in law Chen calling he [...] Known Allergies) Date Reviewed: 03/05/2025 Reviewed by: Marion, Jack, RN - Fully Assessed Reason for Visit: Patient Question [7607] Prescriptions as of 04/14/2025 - warfarin (COUMADIN) [...] Insulin: No - Lancets (ONE TOUCH DELICA) [facility] lancets Test blood sugar(s) one time daily. [...] stenosis of unspecified carotid a*10/25/2013 03/26/2024 Frequency [SEN2274] 02/11/2016 03/26/2024 BPH (benign prostatic hypertrophy) with [...] Hypertensive kidney disease with stage 3 chroni*01/29/2020 [facility] (current) use of anticoagulants [Z79.*02/04/2020 Dementia, vascular, [...] 05/03/2024 Bilateral (more content not included)... Normal [facility] CNPNon 03-28-2025 [facility] CAL MITCHELL ([id number]) 1945 M Date Time Provider Department 03/28/25 GUANAKITO RENO [facility] During your visit today, we recorded the following information about you: Niels Rodriges RN 03/28/2025 1:06 PM Signed Faxed recent ov notes to [facility] per daughter, January request. . January reports she talked to [facility] about patient going to live there and [facility] instructed her to have pcp office send an H AND P to them for review. Allergies As of Date: 03/28/2025 (No Known Allergies) Date Reviewed: 03/05/2025 Reviewed by: Jack Holcomb, BENJIE - Fully Assessed Reason for Visit: Faxed to [facility] [Other] Prescriptions as of 03/28/2025 - [...] Insulin: No - Lancets (ONE TOUCH DELICA) [facility] lancets Test blood sugar(s) one time daily. [...] stenosis of unspecified carotid a*10/25/2013 03/26/2024 Frequency [[id number]] 02/11/2016 03/26/2024 BPH (benign prostatic hypertrophy) with [...] Hypertensive kidney disease with stage 3 chroni*01/29/2020 [facility] (current) use of anticoagulants [Z79.*02/04/2020 Dementia, vascular, [...] Encounter Status:Closed by Niels RODRIGES on 03/28/25 Normal [facility] CNPNon 03-24-2025 CNPN Telephone (PHAMTE) -------- CAL MITCHELL ([id number]) 1945 M Date Time Provider Department 03/24/25 ALEJANDRO MOLINA During your visit today, we recorded the following information about you: Alejandro Molina RPh 03/24/2025 10:57 AM Signed [facility] Ambulatory Pharmacy Anticoagulation Clinic Anticoagulation Episode Summary Anticoagulation Care Providers Provider Role Specialty Phone number Guanakito Reno MD [facility] [phone] Cal Mitchell is a 79 year old [...] instructed to call [facility] at [phone] with any questions or concerns. Alejandro Molina [facility] Clinical Pharmacist, Pharmacy Anticoagulation Clinic Pharmacy Anticoagulation Clinic Pager: [phone] Alejandro Molina [facility] 04/07/2025 3:31 PM Signed Patient was due [...] injectable anticoagulant - No Twin Cole [facility] 04/14/2025 11:38 AM Signed Cal Mitchell was called and reminded to test INR today or as soon as possible. Twin Cole [facility] Allergies As of Date: 03/24/2025 (No Known [...] Insulin: No - Lancets (ONE TOUCH DELICA) [facility] lancets Test blood sugar(s) one time daily. [...] diabetes mellitu (more content not included)... Normal [facility] Inital Evaluation (1) - PTon 03-24-2025 Inital Evaluation (1) - PT [facility] [address] [place] [address]. [address] [place] [address] / REHABILITATION SERVICES INITIAL EVALUATION MR#: [id number] Acct: [id number] Name: CAL MITCHELL Rep #: [id number] : 1945 79 From: Rosa Gates DPT Referring Dr.: Dr. Josafat García MD Status: R EG RCR Insurance: [facility] [id number] SELF PAY INSURANCE Patient's Visit Information Visit [...] PROM due to guarding. Strength: Scap: poor, rn ent: fair, no other motions tested due to [...] to be FAXED BACK to us at [phone] for Medicare purposes. For Medicare only, by signing this I certify the plan of care. Please let me know if there are questions or concerns regarding this plan of care. Physician Signature: Date: ____ 03/24/25 1256 CC: Dr. Josafat García MD; Dr. Guanakito Reno MD E (more content not included)... Normal [facility] Orthopedic Visit Reporton Orthopedic Visit Report [facility] [address] [place] [address] OFFICE VISIT Date of Service: 03/07/25 MR#: [id number] Acct: [id number] Name: CAL MITCHELL Rep #: [id number] : 1945 Provider: Dr. Josafat murcia MD Age/Sex: 79/M Location: [facility] Status: Signed Intake Vital Signs 03/06/25 16:19 [...] you fallen in the past year?: Yes [facility] Medical History (Updated 03/07/25 @ 13:23 by [...] is here today with his son and vavcxjpf-ot-ijz. Usually ambulates with a walker or a cane. Had a fall. Was mainly complaining about pain to the upper extremity was seen in a peripheral hospital referred here given a sling they found approximately wrist fracture on the right side. The patient does not speak very much but he converses overall well he is [id number] fairly stoic. Supplemental Info Proximal humerus fracture [...] a r (more content not included)... Normal [facility] CNOVon 03-06-2025 CNOV Office Visit (FAMPWS ) -------- CAL MITCHELL ([id number]) 1945 M Date Time Provider Department 03/06/25 3:20 PM CAROLINA LANDEROS During your visit today, we recorded the following information about you: Pulse Blood pressure 68/minute 124/58 Carolina Landeros APRN.[employer] 03/06/2025 4:30 PM Signed This is a [...] and 9-10/10 with movement. - Currently taking [place] for pain management. - Denies pain elsewhere [...] 250.00. Insulin: No Lancets (ONE TOUCH DELICA) [facility] lancets Test blood sugar(s) one time daily. [...] SYSTEMS Mu (more content not included)... Normal [facility] ED NOTEon 03-06-2025 ED NOTE HNO ID: [id number] Author: JACK HOLCOMB, BENJIE Service: ? Author Type: Registered Nurse Type: ED Notes Filed: 03/06/2025 00:19 Note Text: Provided meds. Placed in sling. Assisted to bathroom and back Normal [facility] ED PROV NOTEon 03-06-2025 ED PROV NOTE HNO ID: [id number] Author: KEDAR HERNANDEZ MD Service: Emergency Medicine [...] to p (more content not included)... Normal [facility] CT BRAIN WO IVCONon 03-05-20 CT BRAIN WO IVCON * * *Final Report* * * DATE OF EXAM: Mar 05 2025 11:55PM [facility] 0504 - CT BRAIN WO IVCON / [...] wall calcifications, including in the left-sided carotid. Automatic Seamer (topogram) images: Known (in correlation to earlier [...] vertebrae with counting from the craniocervical junction. Manufacturing Supervisor 2Nd Shift: [facility] Transcribe Date/Time: Mar 06 2025 12:48A Dictated by : CAMELIA GROVES MD This examination was interpreted and the report reviewed and electronically signed by: CAMELIA GROVES MD on Mar 06 2025 1:08AM EST [id number] Normal [facility] CT CERVICAL SPINE WO IVCONon 03-05-2025 CT CERVICAL SPINE WO IVCON * * *Final Report* * * DATE OF EXAM: Mar 05 2025 11:55PM [facility] 0505 - CT CERVICAL SPINE WO IVCON [...] wall calcifications, including in the left-sided carotid. Automatic Seamer (topogram) images: Known (in correlation to earlier [...] vertebrae with counting from the craniocervical junction. Manufacturing Supervisor 2Nd Shift: [facility] Transcribe Date/Time: Mar 06 2025 12:48A Dictated by : CAMELIA GROVES MD This examination was interpreted and the report reviewed and electronically signed by: CAMELIA GROVES MD on Mar 06 2025 1:08AM EST [id number] Normal [facility] ED NOTEon 03-05-2025 ED NOTE HNO ID: [id number] Author: JACK HOLCOMB RN Service: ? Author Type: Registered Nurse Type: ED Notes Filed: 03/05/2025 23:05 Note Text: Assisted to bathroom and back Normal [facility] ED NOTE HNO ID: [id number] Author: JACK HOLCOMB RN Service: ? Author Type: Registered Nurse Type: ED Notes Filed: 03/05/2025 22:10 Note Text: Pt c/o fall with right shoulder injury when wheel chair turned over. Denies neck and head injury. [place], warm, dry. No apparent distress. Alert and oriented. Normal [facility] XR HUMERUS 2V AP/LAT RTon XR [...] separation. No dislocation of the glenohumeral joint. Manufacturing Supervisor 2Nd Shift[facility] Transcribe Date/Time: Mar 06 2025 12:37A Dictated by : LINNEA DIAS MD This examination was interpreted and the report reviewed and electronically signed by: LINNEA DIAS MD on Mar 06 2025 12:40AM EST [id number] Normal [facility] XR SHLDR >/=3V AP/JR AP/OTH R [...] separation. No dislocation of the glenohumeral joint. Manufacturing Supervisor 2Nd Shift: [facility] Transcribe Date/Time: Mar 06 2025 12:37A Dictated by : LINNEA DIAS MD This examination was interpreted and the report reviewed and electronically signed by: LINNEA DIAS MD on Mar 06 2025 12:40AM EST [id number] [facility] 02-20-2025 KOURTNEYN Telephone (PHAMTE) -------- CAL MITCHELL ([id number]) 1945 M Date Time Provider Department 02/20/25 JIMMY CARRIZALES During your visit today, we recorded the following information about you: Jimmy Carrizales, [facility] 02/20/2025 9:00 AM Signed [facility] Ambulatory Pharmacy Anticoagulation Clinic Anticoagulation Episode Summary Anticoagulation Care Providers Provider Role Specialty Phone number Guanakito Reno MD [facility] [phone] Cal Mitchell is a 79 year old [...] ALLERGIES No Known Allergies Indication for Warfarin: [facility] (current) use of anticoagulants Paroxysmal atrial fibrillation [...] any doses of warfarin. Jimmy Carrizales [facility] Clinical Pharmacist, Pharmacy Anticoagulation Clinic Pharmacy Anticoagulation Clinic Pager: [phone]. Twin Cole [facility] 03/06/2025 12:38 PM Signed Patient was due [...] an injectable anticoagulant - No Twin Mooneynicole [facility] Jimmy Carrizales [facility] 03/13/2025 7:40 AM Signed Cal Mitchell was sent [employer] message and reminded to test INR today or as soon as possible. Jimmy Carrizales [facility] Alejandro Molina [facility] 03/20/2025 3:45 PM Signed No INR has been received or is in process at this time, will add to discharge list and start the discharge process at this time. Alejandro Molina [facility] Daniel (Shipping And Receiving Supervisor)Ashley 03/24/2025 10:52 AM Signed No return call from patient. Letter sent. FINAL ATTEMPT letter sent at this time. If no response from patient within 3 weeks of letter being sent, patient will be discharged from PAC at that time. Will also route to referring MD as FYI and to see if office can assist in reaching patient. Ashley Sanchez CPhT (Perfumer) Pharmacy Anticoagulation Clinic Guanakito Reno MD 03/24/2025 [...] Fu [148] Cmt: Home INR Primary Visit Diagnosis:[facility] (current) use of anticoagulants [Z79.01] Other Visit [...] mg table (more content not included)... Normal [facility] Molly 01-31-2025 CNPN Telephone (PHAMTE) -------- CAL MITCHELL ([id number]) 1945 M Date Time Provider Department 01/31/25 KAMRAN AYON During your visit today, we recorded the following information about you: Kamran Ayon [facility] 01/31/2025 12:55 PM Signed [facility] Ambulatory Pharmacy Anticoagulation Clinic Anticoagulation Episode Summary Anticoagulation Care Providers Provider Role Specialty Phone number Guanakito Reno MD [facility] [phone] Cal Lua Paula is a 79 year [...] ALLERGIES No Known Allergies 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 Kamran Ayon RPh 02/14/2025 9:53 AM Signed [...] Cmt: INR Home Test Result Primary Visit Diagnosis:[facility] (current) use of anticoagulants [Z79.01] Other Visit [...] (NITROQUICK) 0.4 (more content not included)... Normal [facility] CBC W Auto Differential pane l (Bld)on 01-21-2025 Basophils (Bld) [#/Vol] 0.07 10*3/uL Normal <0.11 [facility] Comment on above: Order Comment: Speci men Type: BLOOD SPECIMENOrdering Facility: [facility] Address: [address] [place] [address] Performed By: #### 5 7021-8 ####[facility] LABCLIA [id number] [place] [address] [place] Basophils/100 WBC (Bld) 0.9 % Normal [facility] Comment on above: Order Comment: Speci men Type: BLOOD SPECIMENOrdering Facility: [facility] Address: [address] [place] [address] Performed By: #### 5 7021-8 ####[facility] LABCLIA [id number] [place] [address] [place] Differential cell count method Nom (Bld) Auto Normal [facility] Comment on above: Order Comment: Speci men Type: BLOOD SPECIMENOrdering Facility: [facility] Address: [address] [place] [address] Performed By: #### 5 7021-8 ####[facility] LABCLIA [id number] [place] [address] [place] Eosinophils (Bld) [#/Vol] 0.25 10*3/uL Normal <0.46 [facility] Comment on above: Order Comment: Speci men Type: BLOOD SPECIMENOrdering Facility: [facility] Address: [address] [place] [address] Performed By: #### 5 7021-8 ####[facility] LABIA [id number] [place] [address] [place] Eosinophils/100 WBC (Bld) 3.3 % Normal [facility] Comment on above: Order Comment: Speci men Type: BLOOD SPECIMENOrdering Facility: [facility] Address: [address] [place] [address] Performed By: #### 5 7021-8 ####[facility] LABIA [id number] [place] [address] [place] Erythrocyte distribution width (RBC) [Ratio] 14.8 % Normal 11.5-15.0 [facility] Comment on above: Order Comment: Speci men Type: BLOOD SPECIMENOrdering Facility: [facility] Address: [address] [place] [address] Performed By: #### 5 7021-8 ####[facility] LABIA [id number] [place] [address] [place] Hematocrit (Bld) [Volume fraction] 41.2 % Normal 39.0-51.0 [facility] Comment on above: Order Comment: Speci men Type: BLOOD SPECIMENOrdering Facility: [facility] Address: [address] [place] [address] Performed By: #### 5 7021-8 ####[facility] LABIA [id number] [place] [address] [place] Hemoglobin (Bld) [Mass/Vol] 12.5 g/dL Low 13.0-17.0 [facility] Comment on above: Order Comment: Speci men Type: BLOOD SPECIMENOrdering Facility: [facility] Address: [address] [place] [address] Performed By: #### 5 7021-8 ####[facility] LABCLIA [id number] [place] [address] [place] Immature granulocytes (Bld) [#/Vol] 10*3/uL Normal <0.10 [facility] Comment on above: Order Comment: Speci men Type: BLOOD SPECIMENOrdering Facility: [facility] Address: [address] [place] [address] Performed By: #### 5 7021-8 ####[facility] LABCLIA [id number] [place] [address] [place] Immature granulocytes/100 WBC (Bld) 0.3 % Normal [facility] Comment on above: Order Comment: Speci men Type: BLOOD SPECIMENOrdering Facility: [facility] Address: [address] [place] [address] Performed By: #### 5 7021-8 ####[facility] LABCLIA [id number] [place] [address] [place] Lymphocytes (Bld) [#/Vol] 1.28 10*3/uL Normal 1.00-4.00 [facility] Comment on above: Order Comment: Speci men Type: BLOOD SPECIMENOrdering Facility: [facility] Address: [address] [place] [address] Performed By: #### 5 7021-8 ####[facility] LABCLIA [id number] [place] [address] [place] Lymphocytes/100 WBC (Bld) 17.1 % Normal [facility] Comment on above: Order Comment: Speci men Type: BLOOD SPECIMENOrdering Facility: [facility] Address: [address] [place] [address] Performed By: #### 5 7021-8 ####[facility] LABCLIA [id number] [place] [address] [place] MCH (RBC) [Entitic mass] 29.3 pg Normal 26.0-34.0 [facility] Comment on above: Order Comment: Speci men Type: BLOOD SPECIMENOrdering Facility: [facility] Address: [address] [place] [address] Performed By: #### 5 7021-8 ####[facility] LABCLIA [id number] [place] [address] [place] MCHC (RBC) [Mass/Vol] 30.3 g/dL Low 30.5-36.0 [facility] Comment on above: Order Comment: Speci men Type: BLOOD SPECIMENOrdering Facility: [facility] Address: [address] [place] [address] Performed By: #### 5 7021-8 ####[facility] LABCLIA [id number] [place] [address] [place] MCV (RBC) [Entitic vol] 96.7 fL Normal 80.0-100.0 [facility] Comment on above: Order Comment: Speci men Type: BLOOD SPECIMENOrdering Facility: [facility] Address: [address] [place] [address] Performed By: #### 5 7021-8 ####[facility] LABCLIA [id number] [place] [address] [place] Monocytes (Bld) [#/Vol] 0.61 10*3/uL Normal <0.87 [facility] Comment on above: Order Comment: Speci men Type: BLOOD SPECIMENOrdering Facility: [facility] Address: [address] [place] [address] Performed By: #### 5 7021-8 ####[facility] LABCLIA [id number] [place] [address] [place] Monocytes/100 WBC (Bld) 8.2 % Normal C [facility] Comment on above: Order Comment: Speci men Type: BLOOD SPECIMENOrdering Facility: [facility] Address: [address] [place] [address] Performed By: #### 5 7021-8 ####[facility] LABCLIA [id number] [address] [address] [place] Neutrophils (Bld) [#/Vol] 5.25 10*3/uL Normal 1.45-7.50 [facility] Comment on above: Order Comment: Speci men Type: BLOOD SPECIMENOrdering Facility: [facility] Address: [address] [place] [address] Performed By: #### 5 7021-8 ####[facility] LABCLIA [id number] [place] [address] [place] Neutrophils/100 WBC (Bld) 70.2 % Normal [facility] Comment on above: Order Comment: Speci men Type: BLOOD SPECIMENOrdering Facility: [facility] Address: [address] [place] [address] Performed By: #### 5 7021-8 ####[facility] LABCLIA [id number] [place] [address] [place] Nucleated RBC (Bld) [#/Vol] 10*3/uL Normal <0.01 [facility] Comment on above: Order Comment: Speci men Type: BLOOD SPECIMENOrdering Facility: [facility] Address: [address] [place] [address] Performed By: #### 5 7021-8 ####[facility] LABCLIA [id number] [place] [address] [place] Nucleated RBC/100 WBC (Bld) [Ratio] 0.0 /100 WBC Normal [facility] Comment on above: Order Comment: Speci men Type: BLOOD SPECIMENOrdering Facility: [facility] Address: [address] [place] [address] Performed By: #### 5 7021-8 ####[facility] LABCLIA [id number] [place] [address] [place] Platelet mean volume (Bld) [Entitic vol] 10.3 fL Normal 9.0-12.7 [facility] Comment on above: Order Comment: Speci men Type: BLOOD SPECIMENOrdering Facility: [facility] Address: [address] [place] [address] Performed By: #### 5 7021-8 ####[facility] LABIA [id number] [place] [address] [place] Platelets (Bld) [#/Vol] 198 10*3/uL Normal 150-400 [facility] Comment on above: Order Comment: Speci men Type: BLOOD SPECIMENOrdering Facility: [facility] Address: [address] [place] [address] Performed By: #### 5 7021-8 ####[facility] LABIA [id number] [place] [address] [place] RBC (Bld) [#/Vol] 4.26 10*6/uL Normal 4.20-6.00 [facility] Comment on above: Order Comment: Speci men Type: BLOOD SPECIMENOrdering Facility: [facility] Address: [address] [place] [address] Performed By: #### 5 7021-8 ####[facility] LABIA [id number] [place] [address] [place] WBC (Bld) [#/Vol] 7.48 10*3/uL Normal 3.70-11.00 [facility] Comment on above: Order Comment: Speci men Type: BLOOD SPECIMENOrdering Facility: [facility] Address: [address] [place] [address] Performed By: #### 5 7021-8 ####[facility] LABIA [id number] [address] [place] CNOVon 01-21-2025 CNOV Office Visit (FAMPWS ) -------- CAL MITCHELL ([id number]) 1945 M Date Time Provider Department 01/21/25 3:40 PM CAROLINA LANDEROS During your visit today, we recorded the following information about you: Temperature Pulse Blood pressure Weight 97.6 degrees 59/minute 122/60 117 kg Carolina Landeros APRN.[employer] 01/21/2025 4:11 PM Signed This is a [...] taking lisinopril Monitors bp at home: Yes. [place] checks it, ok there Denies side effects: [...] 250.00. Insulin: No [facility]CH DELICA) [facility] blood sugar(s) one time [...] (20.0 ttl (more content not included)... Normal [facility] Comprehensive metabolic 2000 panelon 01-21-2025 Albumin [Mass/Vol] 4.1 g/dL Normal 3.9-4.9 [facility] Comment on above: Order Comment: Speci men Type: BLOOD SPECIMENOrdering Facility: [facility] Address: [address] [place] [address] Performed By: #### 2 132-9, 59226-3, 49916-7, LIPNF ####[facility] LABCLIA [id number] [place] [address] [place] ALP [Catalytic activity/Vol] 153 U/L High 38-113 [facility] Comment on above: Order Comment: Speci men Type: BLOOD SPECIMENOrdering Facility: [facility] Address: [address] [place] [address] Performed By: #### 2 132-9, 72862-3, 36068-2, LIPNF ####[facility] LABCLIA [id number] [place] [address] [place] ALT [Catalytic activity/Vol] 19 U/L Normal 10-54 [facility] Comment on above: Order Comment: Speci men Type: BLOOD SPECIMENOrdering Facility: [facility] Address: [address] [place] [address] Performed By: #### 2 132-9, 97807-9, 61362-1, LIPNF ####[facility] LABCLIA [id number] [place] [address] [place] Anion gap [Moles/Vol] 15 mmol/L Normal 8-15 [facility] Comment on above: Order Comment: Speci men Type: BLOOD SPECIMENOrdering Facility: [facility] Address: [address] [place] [address] Performed By: #### 2 132-9, 58978-4, 71028-9, LIPNF ####[facility] LABCLIA [id number] [place] [address] [place] AST [Catalytic activity/Vol] 23 U/L Normal 14-40 [facility] Comment on above: Order Comment: Speci men Type: BLOOD SPECIMENOrdering Facility: [facility] Address: [address] [place] [address] Performed By: #### 2 132-9, 03838-3, 28934-8, LIPNF ####[facility] LABCLIA [id number] [place] [address] [place] Bilirubin [Mass/Vol] 0.6 mg/dL Normal 0.2-1.3 [facility] Comment on above: Order Comment: Speci men Type: BLOOD SPECIMENOrdering Facility: [facility] Address: [address] [place] [address] Performed By: #### 2 132-9, 52793-0, 41542-2, LIPNF ####[facility] LABCLIA [id number] [place] [address] [place] Calcium [Mass/Vol] 8.8 mg/dL Normal 8.5-10.2 [facility] Comment on above: Order Comment: Speci men Type: BLOOD SPECIMENOrdering Facility: [facility] Address: [address] [place] [address] Performed By: #### 2 132-9, 11175-1, 86885-7, LIPNF ####[facility] LABCLIA [id number] [place] [address] [place] Chloride [Moles/Vol] 106 mmol/L Normal 98-107 [facility] Comment on above: Order Comment: Speci men Type: BLOOD SPECIMENOrdering Facility: [facility] Address: [address] [place] [address] Performed By: #### 2 132-9, 09110-7, 77735-3, LIPNF ####[facility] LABCLIA [id number] [place] [address] [place] CO2 [Moles/Vol] 21 mmol/L Low 22-30 [facility] Comment on above: Order Comment: Speci men Type: BLOOD SPECIMENOrdering Facility: [facility] Address: [address] [place] [address] Performed By: #### 2 132-9, 44948-9, 16147-9, LIPNF ####[facility] LABCLIA [id number] [place] [address] [place] Creatinine [Mass/Vol] 2.34 mg/dL High 0.73-1.22 [facility] Comment on above: Order Comment: Speci men Type: BLOOD SPECIMENOrdering Facility: [facility] Address: [address] [place] [address] Performed By: #### 2 132-9, 05386-8, 65945-6, LIPNF ####[facility] LABCLIA [id number] [place] [address] [place] Creatinine and Glomerular filtration rate.predicted panel (S/P/Bld) 27 mL/min/1.73m??? Low >=60 [facility] Comment on above: Order Comment: Speci men Type: BLOOD SPECIMENOrdering Facility: [facility] Address: [address] [place] [address] Result Comment: Lina mated Glomerular Filtration Rate [...] actual GFR. Performed By: #### 2 132-9, 18407-9, , LIPNF ####[facility] LABCLIA [id number] [address] [address] [place] Glucose [Mass/Vol] 122 mg/dL High 74-99 [facility] Comment on above: Order Comment: Speci men Type: BLOOD SPECIMENOrdering Facility: [facility] Address: [address] [place] [address] Result Comment: The [place] Diabetes Association (ADA) provides guidance for cutoff [...] Standards of Medical Care in Diabetes 2016, [place] Diabetes Association. Diabetes Care. 2016.39(Suppl 1). Performed By: #### 2 132-9, , , LIPNF ####[facility] LABCLIA [id number] [address] [address] [place] Potassium [Moles/Vol] 4.3 mmol/L Normal 3.7-5.1 [facility] Comment on above: Order Comment: Speci men Type: BLOOD SPECIMENOrdering Facility: [facility] Address: [address] [place] [address] Performed By: #### 2 132-9, 09926-3, , LIPNF ####[facility] LABCLIA [id number] [address] [address] [place] Protein [Mass/Vol] 7.2 g/dL Normal 6.3-8.0 [facility] Comment on above: Order Comment: Speci men Type: BLOOD SPECIMENOrdering Facility: [facility] Address: [address] [place] [address] Performed By: #### 2 132-9, 92865-0, 64506-5, LIPNF ####[facility] LABCLIA [id number] [place] [address] [place] Sodium [Moles/Vol] 142 mmol/L Normal 136-144 [facility] Comment on above: Order Comment: Speci men Type: BLOOD SPECIMENOrdering Facility: [facility] Address: [address] [place] [address] Performed By: #### 2 132-9, 89244-5, 57252-4, LIPNF ####[facility] LABCLIA [id number] [place] [address] [place] Urea nitrogen [Mass/Vol] 29 mg/dL High 9-24 [facility] Comment on above: Order Comment: Speci men Type: BLOOD SPECIMENOrdering Facility: [facility] Address: [address] [place] [address] Performed By: #### 2 132-9, 96067-8, 21437-9, LIPNF ####[facility] LABCLIA [id number] [place] [address] [place] HbA1c (Bld)on 01-21-2025 Average glucose Estimated from glycated hemoglobin (Bld) [Mass/Vol] 146 mg/dL Normal [facility] Comment on above: Order Comment: Speci men Type: BLOOD SPECIMENOrdering Facility: [facility] Address: [address] [place] [address] Result Comment: eAG: (Estimated average glucose) is a calculated value from HgbA1c and is manufacturers representative of the average blood glucose level in the last 2-3 month period. Performed By: #### 5 5454-3 ####[facility] LABCLIA [id number] [address] [place] [address] [place] HbA1c (Bld) [Mass fraction] 6.7 % High 4.3-5.6 [facility] Comment on above: Order Comment: Marcelle lexii Type: BLOOD SPECIMENOrdering Facility: [facility] Address: [address] [place] [address] Result Comment: Amer [place] Diabetes Association guidelines indicate that patients with HgbA1c in the range 5.7-6.4% are at increased risk for development of diabetes, and intervention by lifestyle modification may be beneficial. HgbA1c greater or equal to 6.5% is considered diagnostic of diabetes. Performed By: #### 5 5454-3 ####[facility] LABCLIA [id number] [place] [address] [place] LIPID PANEL, NONFASTINGon Cholesterol [Mass/Vol] 164 mg/dL Normal <200 [facility] Comment on above: Order Comment: Marcelle lexii Type: BLOOD SPECIMENOrdering Facility: [facility] Address: [address] [place] [address] Result Comment: <200 mg/dL, Desirable 200-239 mg/dL, Borderline high >239 mg/dL, High Performed By: #### 2 132-9, 30819-1, 15466-9, LIPNF ####[facility] LABCLIA [id number] [place] [address] [place] HDL CHOLESTEROL, NF 42 mg/dL Normal >39 [facility] Comment on above: Order Comment: Jocelinnick shultz Type: BLOOD SPECIMENOrdering Facility: [facility] Address: [address] [place] [address] Result Comment: 40-5 9 mg/dL, Acceptable >59 mg/dL, High: Negative risk factor for coronary heart disease <40 mg/dL, Low: Positive risk factor for coronary heart disease Performed By: #### 2 132-9, 82890-5, 77366-5, LIPNF ####[facility] LABCLIA [id number] [place] [address] [place] LDL CHOLESTEROL, NF 96 mg/dL Normal <100 [facility] Comment on above: Order Comment: Marcelle shultz Type: BLOOD SPECIMENOrdering Facility: [facility] Address: [address] [place] [address] Result Comment: <100 mg/dL, Optimal 100-129 mg/dL, Near optimal/above optimal 130-159 mg/dL, Borderline high 160-189 mg/dL, High >189 mg/dL, Very high Secondary prevention optimal LDL Cholesterol levels are recommended to be < 70 mg/dL Performed By: #### 2 132-9, 13123-3, 96404-6, LIPNF ####[facility] LABCLIA [id number] [address] [facility] LDL/HDL RATIO, NF 2.29 mg/dL Normal <2.54 [facility] Comment on above: Order Comment: Marcelle shultz Type: BLOOD SPECIMENOrdering Facility: [facility] Address: [address] [place] [address] Result Comment: Refe rence: 1. National Cholesterol Education Program ATP III Guideline At-A-Glance Quick Desk Reference: National Heart, Lung, and Blood Issue. National Institutes of Health. 2001: NIH Publication No. 01-3305. 2. An International Atherosclerosis Society position paper: global recommendations for the management of dyslipidemia: executive summary, Atherosclerosis. 2014: 232(2):410-413. Performed By: #### 2 132-9, 74309-2, 48411-7, LIPNF ####[facility] LABCLIA [id number] [address] [place] NON HDL CHOL, NF 122 mg/dL Normal <130 [facility] Comment on above: Order Comment: Marcelle shultz Type: BLOOD SPECIMENOrdering Facility: [facility] Address: [address] [place] [address] Result Comment: <130 mg/dL, Optimal 130-159 mg/dL, Near optimal/above optimal 160-189 mg/dL, Borderline high 190-219 mg/dL, High >219 mg/dL, Very high Secondary prevention optimal non HDL Cholesterol levels are recommended to be <100 mg/dL Performed By: #### 2 132-9, 70125-0, 04168-3, LIPNF ####[facility] LABCLIA [id number] [address] [place] [address] [place] T CHOL/HDL RATIO NF 3.90 mg/dL Normal <5.10 [facility] Comment on above: Order Comment: Speci men Type: BLOOD SPECIMENOrdering Facility: [facility] Address: [address] [place], [place] [address] Performed By: #### 2 132-9, 51459-6, , LIPNF ####[facility] LABCLIA [id number] [address] [address] [place] TRIGLYCERIDES, NF 129 mg/dL Normal <150 [facility] Comment on above: Order Comment: Speci men Type: BLOOD SPECIMENOrdering Facility: [facility] Address: [address] [place], [place] [address] Result Comment: <150 mg/dL, Normal 150-199 mg/dL, Borderline high 200-499 mg/dL, High >499 mg/dL, Very high Performed By: #### 2 132-9, 23599-5, , LIPNF ####[facility] LABCLIA [id number] [address] [address] [place] VLDL CHOLESTEROL, NF 26 mg/dL Normal <30 [facility] Comment on above: Order Comment: Speci men Type: BLOOD SPECIMENOrdering Facility: [facility] Address: [address] [place] [address] Performed By: #### 2 132-9, 97892-8, , LIPNF ####[facility] LABCLIA [id number] [address] [place] [address] [place] Magnesium SerPl-mCncon 01-21 Magnesium [Mass/Vol] 2.3 mg/dL Normal 1.7-2.3 [facility] Comment on above: Order Comment: Marcelle shultz Type: BLOOD SPECIMENOrdering Facility: [facility] Address: [address] [place] [address] Performed By: #### 2 132-9, 92466-1, 36002-9, LIPNF ####[facility] LABCLIA [id number] [address] [facility] Vit B12 [facility] Cobalamin (Vitamin B12) [Mass/Vol] 385 pg/mL Normal 232-1245 [facility] Comment on above: Order Comment: Jocelinnick shultz Type: BLOOD SPECIMENOrdering Facility: [facility] Address: [address] [place] [address] Performed By: #### 2 132-9, 94065-8, 52538-8, LIPNF ####[facility] LABCLIA [id number] [address] [facility] CNPNon 01-08-2025 CNPN Telephone (PHAMTE) -------- CAL MITCHELL ([id number]) 1945 M Date Time Provider Department 01/08/25 RUTHIE CUEVAS PHAMTE During your visit today, we recorded the following information about you: Ruthie Cuevas bobbi 01/08/2025 9:14 AM Signed [facility] Anticoagulation Clinic Anticoagulation Episode Summary Anticoagulation Care Providers Provider Role Specialty Phone number Guanakito Reno MD [facility] [phone] Cal Hageroll is a 79 year old [...] ALLERGIES No Known Allergies Indication for Warfarin: [facility] (current) use of anticoagulants Paroxysmal atrial fibrillation [...] missed any doses of warfarin. Ruthie Cuevas [facility] Clinical Pharmacist, Pharmacy Anticoagulation Clinic Pharmacy Anticoagulation Clinic Pager: [phone]. Ruthie Cuevas RPh 01/29/2025 11:08 AM Addendum Cal Mitchell was called and reminded to test INR today or as soon as possible. LVMX for January. 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 Dx: 250.00. Insulin: No Problem List As Of Date 01/08/2025 (more content not included)... Normal [facility] 12-30-2024 CNPN Telephone (PHAMTE) -------- CAL MITCHELL ([id number]) 1945 M Date Time Provider Department 12/30/24 TWIN COLE During your visit today, we recorded the following information about you: Twin Cole [facility] 12/30/2024 9:14 AM Signed [facility] Anticoagulation Clinic Anticoagulation Episode Summary Anticoagulation Care Providers Provider Role Specialty Phone number Guanakito Reno MD [facility] [phone] Cal Mitchell is a 79 year old [...] any doses of warfarin. Twin Cole [facility] Clinical Pharmacist, Pharmacy Anticoagulation Clinic Pharmacy Anticoagulation Clinic Pager: [phone]. Octavio (Shipping And Receiving Supervisor)Ruben 12/30/2024 9:15 AM Signed De called regarding INR result for patient. Result has been addressed below, no further action needed. Ruben Cunningham, Perfumer (insurance salesperson) Pharmacy Anticoagulation Clinic Jimmy Carrizales [facility] 01/07/2025 12:02 PM Signed Cal Mitchell was called, lvmx and reminded to test INR today or as soon as possible given that we left a VM last week also. Jimmy Carrizales [facility] Allergies As of Date: 12/30/2024 (No [...] Insulin: No - Lancets (ONE TOUCH DELICA) [facility] lancets Test blood sugar(s (more content not included)... Normal [facility] Molly 12-11-2024 LUCIO Telephone (PHAMEE) -------- CAL MITCHELL ([id number]) 1945 M Date Time Provider Department 12/11/24 JIMMY CARRIZALES During your visit today, we recorded the following information about you: Jimmy Carrizales, [facility] 12/11/2024 9:51 AM Signed [facility] [facility] Ambulatory Pharmacy Anticoagulation Clinic Anticoagulation Episode Summary Anticoagulation Care Providers Provider Role Specialty Phone number Guanakito Reno MD [facility] [phone] Cal Mitchell is a 79 year old [...] ALLERGIES No Known Allergies 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 Jimmy Carrizales [facility] Clinical Pharmacist, Pharmacy Anticoagulation Clinic Pharmacy Anticoagulation Clinic Pager: [phone]. Ruthie Cuevas RPh 12/25/2024 11:14 AM Signed [...] Fu [148] Cmt: Home INR Primary Visit Diagnosis:[facility] (current) use of anticoagulants [Z79.01] Other Visit [...] sugar grey (more content not included)... Normal [facility] 11-26-2024 [facility] Telephone (MIGUELMTE) -------- CAL MITCHELL ([id number]) 1945 M Date Time Provider Department 11/26/24 [place] During your visit today, we recorded the following information about you: Twin Cole RPh 11/26/2024 5:29 PM Signed [facility] Ambulatory Pharmacy Anticoagulation Clinic Anticoagulation Episode Summary Anticoagulation Care Providers Provider Role Specialty Phone number Guanakito Reno MD [facility] [phone] Cal Mitchell is a 79 year old [...] Anticoagulation Clinic Pharmacy Anticoagulation Clinic Pager: [phone]. Yamilka Heath RN 11/27/2024 8:43 AM Signed Chris Ruggiero left a VM regarding the patient's INR result on 11/26/2024. Noted result has been addressed below. BENJIE Cardenas Kim, RPh 12/10/2024 10:31 AM Signed Cal Hageroll was called and reminded to test INR [...] Insulin: No - Lancets (ONE TOUCH DELICA) [facility] lancets Test blood sugar(s) one time daily. Dx: 250.00. Insulin: No Problem Lis (more content not included)... Normal [facility] 10-28-2024 CNPN Telephone (BRIAN) -------- CAL MITCHELL ([id number]) 1945 M Date Time Provider Department 10/28/24 ALEJANDRO MOLINA During your visit today, we recorded the following information about you: Alejandro Molina RPh 10/28/2024 5:07 PM Signed [facility] Ambulatory Pharmacy Anticoagulation Clinic Anticoagulation Episode Summary Anticoagulation Care Providers Provider Role Specialty Phone number Guanakito Reno MD [facility] [phone] Cal Hageroll is a 79 year old [...] instructed to call [facility] at [phone] with any questions or concerns. Alejandro Molina [facility] Clinical Pharmacist, Pharmacy Anticoagulation Clinic Pharmacy Anticoagulation Clinic Pager: [phone] Alejandro Molina [facility] 11/11/2024 4:42 PM Signed Patient was due to test INR today. Will continue to monitor for results. Will follow up in one week if no results received. Alejandro Molina [facility] 11/18/2024 4:27 PM Signed Cal Mitchell was called and reminded to test INR today or as soon as possible. Alejandro Molina [facility] Twin Cole [facility] 11/25/2024 2:53 PM Signed Added to discharge list Daniel (Shipping And Receiving Supervisor)Ashley 11/26/2024 2:43 PM Signed DISCHARGE No return call from patient. Letter sent. FINAL ATTEMPT letter sent at this time. If no response from patient within 4 weeks, patient will be discharged from PAC at that time. Will also route to referring MD as FYI and to see if office can assist in reaching patient. Ashley Sanchez CPhT (Perfumer) Pharmacy Anticoagulation Clinic Guanakito Reno MD 11/26/2024 [...] Elly and Gustavo. Gave them the pharmacy [facility] phone number and they are going to [...] understand things anymore. 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 CHANCE Ramirez (Shipping And Receiving Supervisor)Ashley 11/26/2024 5:07 PM Signed PATIENT CALL Patient [...] once received. PAC will await results. [facility] (more content not included)... Normal [facility] 10-21-2024 KOURTNEYN Telephone (FAMPWS) -------- CAL MITCHELL ([id number]) 1945 M Date Time Provider Department 10/21/24 [facility] During your visit today, we recorded [...] Known Allergies) Date Reviewed: 08/06/2024 Reviewed by: West, Carolin, SUPERVISOR [employer] - Fully Assessed Reason for Visit: Patient Update [1234] Patient Question [4837] Prescriptions as of 10/21/2024 - atorvastatin (LIPITOR) [...] Insulin: No - Lancets (ONE TOUCH DELICA) [facility] lancets Test blood sugar(s) one time daily. [...] stenosis of unspecified carotid a*10/25/2013 03/26/2024 Frequency [[id number]] 02/11/2016 03/26/2024 BPH (benign prostatic hypertrophy) with urinary*02/11/2016 Adhesive capsulitis of right shoulder [M75.01] 05/15/2018 Aortic stenosis [I35.0] 05/24/2018 CKD (chronic kidney disease) stage 3, GFR 30-59*05/24/2018 03/26/2024 Lung (more content not included)... Normal [facility] 10-01-2024 LUCIO Telephone (PHAMTE) -------- CAL MITCHELL ([id number]) 1945 M Date Time Provider Department 10/01/24 [place] During your visit today, we recorded the following information about you: Twin Cole, [facility] 10/01/2024 9:42 AM Signed [facility] Pharmacy Anticoagulation Clinic Anticoagulation Episode Summary Anticoagulation Care Providers Provider Role Specialty Phone number Guanakito Reno MD [facility] [phone] Cal Mitchell is a 79 year old [...] Pharmacy Anticoagulation Clinic Pharmacy Anticoagulation Clinic Pager: [phone]. Twin Cole RPh 10/15/2024 12:10 PM Signed [...] tablet Dissolve (more content not included)... Normal [facility] 08-26-2024 [facility] Telephone (MIGUELMTE) -------- CAL MITCHELL ([id number]) 1945 M Date Time Provider Department 08/26/24 ALEJANDRO MOLINA During your visit today, we recorded the following information about you: Alejandro Molina RPh 08/26/2024 6:35 AM Signed [facility] Ambulatory Pharmacy Anticoagulation Clinic Anticoagulation Episode Summary Anticoagulation Care Providers Provider Role Specialty Phone number Guanakito Reno MD [facility] [phone] Cal Lua Paula is a 79 year [...] warfarin instructions: 5 mg every day Sent Yippy message Advised patient to continue current weekly dose as noted above Next INR check due on 09/09/2024 Alejandro Molina RPh Clinical Pharmacist, Pharmacy Anticoagulation Clinic Pharmacy Anticoagulation Clinic Pager: [phone]. Alejandro Molina RPh 09/09/2024 4:38 PM Signed Patient was due to test INR today. Will continue to monitor for results. Will follow up in one week if no results received. Alejandro Molina, [facility] 09/23/2024 2:35 PM Signed Cal Mitchell was called and reminded to test INR today or as soon as possible. Alejandro Molina, [facility] VinicioTwin rivera, [facility] 09/30/2024 12:31 PM Signed Added [...] Insulin: No - [facility]CH DELICA[facility] blood sugar(s) one time daily. Dx: 250.00. Insulin: No Problem List As Of Date 08/26/2024 Noted Resolved Hyperlipidemia, mixed [E78.2] Essential hypertension [I10] Peripheral arterial disease (HCC) [I73.9] Other symptoms involving cardiovascular system * 07/20/2016 ACTINIC KERATOSIS [L57.0] 10/12/2005 IMPACTED CERUMEN [H61.20] (more content not included)... Normal [facility] 08-16-2024 [facility] -------- CAL MITCHELL ([id number]) 1945 M Date Time Provider Department 08/16/24 JIMMY PERKINS [facility] During your visit today, we recorded the following information about you: Josselyn Mayer APRN.[facility] 08/30/2024 1:49 PM Signed Please call patient and let him know his Holter Monitor did not reveal any significant arrhythmias but he was bradycardic 47% of the time. Please advise patient to decrease his Toprol XL to 25 mg daily. Josselyn Mayer APRN.Josselyn Hickman APRN.CNP 08/30/2024 1:50 PM Signed Addended by: [...] Insulin: No - Lancets (ONE TOUCH DELICA) [facility] lancets Test blood sugar(s) one time daily. 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 Normal [facility] ECG B/O W INTERP (MED OFFICE )on 07-10-2024 Sinus rhythm with fi rst degree heart block [facility] US Kidney - bilateral and Ur inary bladderon 05-02-2024 IMPRESSION: No hydronephrosis. Cholelithiasis. Manufacturing Supervisor 2Nd Shift: MAC Transcribe Date/Time: May 02 2024 7:17P Dictated by : TIN COTTER DO This examination was interpreted and the report reviewed and electronically signed by: TIN COTTER DO on May 02 2024 7:19PM [facility] DIVISION OF RADIOLOGY * * *Final Report* [...] noted cholelithiasis. DIVISION OF RADIOLOGY Provider, Krissy Obrien - 05/02/2024 * * *Final Report* * [...] noted cholelithiasis. IMPRESSION IMPRESSION: No hydronephrosis. Cholelithiasis. Manufacturing Supervisor 2Nd Shift: MAC Transcribe Date/Time: May 02 2024 7:17P Dictated by : TIN COTTER DO This examination was interpreted and the report reviewed and electronically signed by: TIN COTTER DO on May 02 2024 7:19PM EST [facility] Radiology Study observation (narrative) Alexx mckinnon [facility] US Kidney - bilateral and Ur inary bladderOrdered By: Ccf Provider on 05-02-2024 [facility] NT PRO BNPon 03-26-2024 Natriuretic peptide.B prohormone N-Terminal [Mass/Vol] 501 pg/mL High NINF - 450 pg/mL [facility] Natriuretic peptide.B prohor jodie N-Terminal [Mass/Vol]on 03-26-2024 Interpretation and review of laboratory results Abnormal [facility] THYROID STIMULATING HORMONEo n 03-26-2024 TSH Qn 2.950 m[IU]/L [facility] TSH Qnon 03-26-2024 Interpretation and review of laboratory results Normal [facility] CBC panel Auto (Bld)on 03-25 Erythrocyte distribution width (RBC) [Ratio] 14.9 % 11.5 - 15.0 % [facility] Hematocrit (Bld) [Volume fraction] 31.8 % Low 39.0 - 51.0 % [facility] Hemoglobin (Bld) [Mass/Vol] 9.6 g/dL Low 13.0 - 17.0 g/dL [facility] Interpretation and review of laboratory results Abnormal [facility] MCH (RBC) [Entitic mass] 30.9 pg 26.0 - 34.0 pg [facility] MCHC (RBC) [Mass/Vol] 30.2 g/dL Low 30.5 - 36.0 g/dL [facility] MCV (RBC) [Entitic vol] 102.3 fL High 80.0 - 100.0 fL [facility] Nucleated RBC (Bld) [#/Vol] NINF [facility] Platelet mean volume (Bld) [Entitic vol] 9.8 fL 9.0 - 12.7 fL [facility] Platelets (Bld) [#/Vol] 158 10*3/uL [facility] RBC (Bld) [#/Vol] 3.11 10*6/uL Low 4.20 - 6.0 0 m/uL [facility] WBC (Bld) [#/Vol] 4.72 10*3/uL [facility] Comprehensive metabolic 2000 panelOrdered By: Haley Marie on 03-25-2024 Albumin [Mass/Vol] 3.7 g/dL Low 3.9 - 4.9 g/dL [facility] ALP [Catalytic activity/Vol] 109 U/L 38 - 113 U/L [facility] ALT [Catalytic activity/Vol] 15 U/L 10 - 54 U/L [facility] Anion gap [Moles/Vol] 12 mmol/L 8 - 15 mmol/L [facility] AST [Catalytic activity/Vol] 19 U/L 14 - 40 U/L [facility] Bilirubin [Mass/Vol] 0.3 mg/dL 0.2 - 1 .3 mg/dL [facility] Calcium [Mass/Vol] 8.6 mg/dL 8.5 - 10. 2 mg/dL [facility] Chloride [Moles/Vol] 113 mmol/L High 98 - 10 7 mmol/L [facility] CO2 [Moles/Vol] 16 mmol/L Low 22 - 30 mmol/L [facility] Creatinine [Mass/Vol] 2.48 mg/dL High 0.73 - 1.22 mg/dL [facility] GFR/1.73 sq M.predicted among non-blacks MDRD (S/P/Bld) [Vol rate/Area] 26 mL/min/{1.73_m2} Low - PINF [facility] Comment on above: Estimated Glomerular Filtration Rate [...] [Mass/Vol] 99 mg/dL 74 - 99 mg/dL [facility] Comment on above: The [place] Diabete s Association (ADA) provides guidance for [...] Standards of Medical Care in Diabetes 2016, [place] Diabetes [employer]. Diabetes Care. 2016.39(Suppl 1). Interpretation and review of laboratory results Abnormal [facility] Potassium [Moles/Vol] 4.4 mmol/L 3.7 - 5.1 mmol/L [facility] Protein [Mass/Vol] 6.4 g/dL 6.3 - 8.0 g/dL [facility] Sodium [Moles/Vol] 141 mmol/L 136 - 144 mmol/L [facility] Urea nitrogen [Mass/Vol] 49 mg/dL High 9 - 24 mg/dL [facility] ALBUMIN/CREAT RATIO RND URon 08-14-2023 Albumin DL <= 20 mg/L (U) [Mass/Vol] 26.7 mg/L [facility] Albumin/Creatinine (U) [Mass ratio] 27 mg/g <30 mg/g [facility] Creatinine (U) [Mass/Vol] 98.9 mg/dL 20.0 - 300.0 mg/dL [facility] CBC W Auto Differential pane l (Bld)on 08-14-2023 Basophils (Bld) [#/Vol] 0.05 10*3/uL <0.11 k/uL [facility] Basophils/100 WBC (Bld) 0.9 % [facility] Differential cell count method Nom (Bld) Auto [facility] Eosinophils (Bld) [#/Vol] 0.44 10*3/uL <0.46 k/uL [facility] Eosinophils/100 WBC (Bld) 8.3 % [facility] Erythrocyte distribution width (RBC) [Ratio] 14.5 % 11.5 - 15.0 % [facility] Hematocrit (Bld) [Volume fraction] 38.6 % Low 39.0 - 51.0 % [facility] Hemoglobin (Bld) [Mass/Vol] 11.7 g/dL Low 13.0 - 17.0 g/dL [facility] Immature granulocytes (Bld) [#/Vol] <0.10 k/uL [facility] Immature granulocytes/100 WBC (Bld) 0.4 % [facility] Lymphocytes (Bld) [#/Vol] 1.18 10*3/uL 1.00 - 4.00 k/uL [facility] Lymphocytes/100 WBC (Bld) 22.1 % [facility] MCH (RBC) [Entitic mass] 31.3 pg 26.0 - 34.0 pg [facility] MCHC (RBC) [Mass/Vol] 30.3 g/dL Low 30.5 - 36.0 g/dL [facility] MCV (RBC) [Entitic vol] 103.2 fL High 80.0 - 100.0 fL [facility] Monocytes (Bld) [#/Vol] 0.42 10*3/uL <0.87 k/uL [facility] Monocytes/100 WBC (Bld) 7.9 % [facility] Neutrophils (Bld) [#/Vol] 3.22 10*3/uL 1.45 - 7.50 k/uL [facility] Neutrophils/100 WBC (Bld) 60.4 % [facility] Nucleated RBC (Bld) [#/Vol] <0.01 k/uL [facility] Nucleated RBC/100 WBC (Bld) [Ratio] 0.0 /100 WBC [facility] Platelet mean volume (Bld) [Entitic vol] 10.5 fL 9.0 - 12.7 fL [facility] Platelets (Bld) [#/Vol] 144 10*3/uL Low 150 - 400 k/uL [facility] RBC (Bld) [#/Vol] 3.74 10*6/uL Low 4.20 - 6.0 0 m/uL [facility] WBC (Bld) [#/Vol] 5.33 10*3/uL 3.70 - 11.00 k/uL [facility] Comprehensive metabolic 2000 panelon 08-14-2023 Albumin [Mass/Vol] 4.1 g/dL 3.9 - 4.9 g/dL [facility] ALP [Catalytic activity/Vol] 111 U/L 38 - 113 U/L [facility] ALT [Catalytic activity/Vol] 21 U/L 10 - 54 U/L [facility] Anion gap [Moles/Vol] 11 mmol/L 9 - 18 mmol/L [facility] AST [Catalytic activity/Vol] 26 U/L 14 - 40 U/L [facility] Bilirubin [Mass/Vol] 0.5 mg/dL 0.2 - 1 .3 mg/dL [facility] Calcium [Mass/Vol] 8.8 mg/dL 8.5 - 10. 2 mg/dL [facility] Chloride [Moles/Vol] 106 mmol/L High 97 - 10 5 mmol/L [facility] CO2 [Moles/Vol] 24 mmol/L 22 - 30 mmol/L [facility] Creatinine [Mass/Vol] 2.30 mg/dL High 0.73 - 1.22 mg/dL [facility] Estimated Glomerular Filtration Rate 28 mL/min/1.73m Low >=60 mL/min/1.73 m [facility] Glucose [Mass/Vol] 113 mg/dL High 74 - 99 mg/dL [facility] Potassium [Moles/Vol] 4.6 mmol/L 3.7 - 5.1 mmol/L [facility] Protein [Mass/Vol] 7.0 g/dL 6.3 - 8.0 g/dL [facility] Sodium [Moles/Vol] 141 mmol/L 136 - 144 mmol/L [facility] Urea nitrogen [Mass/Vol] 28 mg/dL High 9 - 24 mg/dL [facility] HbA1c (Bld)on 08-14-2023 Average glucose Estimated from glycated hemoglobin (Bld) [Mass/Vol] 108 mg/dL [facility] HbA1c (Bld) [Mass fraction] 5.4 % 4.3 - 5.6 % [facility] Lipid 1996 panelon Cholesterol [Mass/Vol] 165 mg/dL <200 mg/dL [facility] Cholesterol in HDL [Mass/Vol] 44 mg/dL >39 mg/dL [facility] Cholesterol in LDL [Mass/Vol] 100 mg/dL High <100 mg/dL [facility] Cholesterol in LDL/Cholesterol in HDL [Mass ratio] 2.27 {ratio} <2.54 [facility] Cholesterol in VLDL [Mass/Vol] 21 mg/dL <30 mg/dL [facility] Cholesterol non HDL [Mass/Vol] 121 mg/dL <130 mg/dL [facility] Cholesterol.total/Julia sterol in HDL [Mass ratio] 3.75 {ratio} <5.10 [facility] Fasting Time 14 hrs [facility] Triglyceride [Mass/Vol] 106 mg/dL <150 mg/dL [facility] INR FINGERSTICK B/Oon 2021 INR Coag (Bld) [Relative time] 1.9 (self reporting) [facility] INR FINGERSTICK B/Oon 2021 INR Coag (Bld) [Relative time] 2.1 [facility] Quality Check No [facility] Vital Signs Date Time Vital Sign Value Performing Clinician Facility 03-07-2025 12:57-0400 Body height 177.[address] Guanakito Reno MD Work Phone: [facility] 03-07-2025 12:57-0400 Body mass index (BMI) [Ratio] 35.9 kg/m2 Dr. Guanakito Reno MD Work Phone: [facility] 03-07-2025 12:57-0400 Body weight 113.[address] Guanakito Reno MD Work Phone: [facility] 01-21-2025 15:33-0400 Body mass index (BMI) [Ratio] 37.02 kg/m2 Carolina Suppan CHILDREN'S AIDE.[employer] Work Phone: [facility] 01-21-2025 15:33-0400 Body temperature 97.59 [degF] Carolina Suppan CHILDREN'S AIDE.[employer] Work Phone: [facility] 01-21-2025 15:33-0400 Body weight 117.03 kg Carolina Suppan CHILDREN'S AIDE.[employer] Work Phone: [facility] 01-21-2025 15:33-0400 Diastolic blood pressure 60 mm[Hg] Carolina Suppan CHILDREN'S AIDE.[employer] Work Phone: [facility] 01-21-2025 15:33-0400 Heart rate 59 /min Carolina Suppan CHILDREN'S AIDE.[employer] Work Phone: [facility] 01-21-2025 15:33-0400 SaO2% (BldA) [Mass fraction] 97 % Carolina Suppan CHILDREN'S AIDE.[employer] Work Phone: [facility] 01-21-2025 15:33-0400 Systolic blood pressure 122 mm[Hg] Carolina Suppan CHILDREN'S AIDE.[employer] Work Phone: [facility] 08-06-2024 12:57-0400 Body height 177.8 cm Laura Iraheta MD Work Phone: [facility] Comment on above: patient reports 08-06-2024 12:57-0400 Body mass index (BMI) [Ratio] 34.44 kg/m2 Laura Iraheta MD Work Phone: [facility] 08-06-2024 12:57-0400 Body weight 108.86 kg Laura Iraheta MD Work Phone: [facility] 08-06-2024 12:57-0400 Diastolic blood pressure 68 mm[Hg] Lauar Iraheta MD Work Phone: [facility] 08-06-2024 12:57-0400 Heart rate 61 /min Laura Iraheta MD Work Phone: [facility] 08-06-2024 12:57-0400 SaO2% (BldA) [Mass fraction] 99 % Laura Iraheta MD Work Phone: [facility] [facility] 08-06-2024 12:57-0400 Systolic blood pressure 128 mm[Hg] Laura Iraheta MD Work Phone: [facility] 07-12-2024 11:22-0400 Body height 177.8 cm Guanakito Reno MD Work Phone: [facility] 07-12-2024 11:22-0400 Body mass index (BMI) [Ratio] 34.55 kg/m2 Guanakito Reno MD Work Phone: [facility] 07-12-2024 11:22-0400 Body weight 109.23 kg Guanakito Reno MD Work Phone: [facility] 07-12-2024 11:22-0400 Diastolic blood pressure 62 mm[Hg] Guanakito Reno MD Work Phone: [facility] 07-12-2024 11:22-0400 Heart rate 59 /min Guanakito Reno MD Work Phone: [facility] 07-12-2024 11:22-0400 Systolic blood pressure 114 mm[Hg] Guanakito Reno MD Work Phone: [facility] 07-10-2024 08:11-0400 Body height 177.8 cm Cal Mondragon MD Work Phone: [facility] Comment on above: Patient reports 07-10-2024 08:11-0400 Body mass index (BMI) [Ratio] 34.49 kg/m2 Cal Mondragon MD Work Phone: [facility] 07-10-2024 08:11-0400 Body weight 109.05 kg Cal Mondragon MD Work Phone: [facility] 07-10-2024 08:11-0400 Diastolic blood pressure 70 mm[Hg] Cal Mondragon MD Work Phone: [facility] 07-10-2024 08:11-0400 Heart rate 94 /min Cal Mondragon MD Work Phone: [facility] 07-10-2024 08:11-0400 SaO2% (BldA) [Mass fraction] 94 % Cal Mondragon MD Work Phone: [facility] 07-10-2024 08:11-0400 Systolic blood pressure 120 mm[Hg] Cal Mondragon MD Work Phone: [facility] 07-10-2024 08:08-0400 Body height 177.8 cm Pam Reddy MD Work Phone: [facility] Comment on above: Patient reports 07-10-2024 08:08-0400 Body mass index (BMI) [Ratio] 34.49 kg/m2 Pam Reddy MD Work Phone: [facility] 07-10-2024 08:08-0400 Body weight 109.05 kg Pam Reddy MD Work Phone: [facility] Comment on above: Fully clothed with shoes on. 07-10-2024 08:08-0400 Diastolic blood pressure 70 mm[Hg] Pam Reddy MD Work Phone: [facility] 07-10-2024 08:08-0400 Heart rate 94 /min Pam Reddy MD Work Phone: [facility] 07-10-2024 08:08-0400 SaO2% (BldA) [Mass fraction] 94 % Pam Reddy MD Work Phone: [facility] 07-10-2024 08:08-0400 Systolic blood pressure 120 mm[Hg] Pam Reddy MD Work Phone: [facility] 06-06-2024 11:31-0400 Body mass index (BMI) [Ratio] 36.03 kg/m2 Carolina Landeros APRN.[employer] Work Phone: [facility] 06-06-2024 11:31-0400 Body weight 110.68 kg Carolina Landeros APRN.[employer] Work Phone: [facility] 06-06-2024 11:31-0400 Diastolic blood pressure 68 mm[Hg] Carolina Suppan CHILDREN'S AIDE.ENG[employer]ER [employer] Work Phone: [facility] 06-06-2024 11:31-0400 Heart rate 71 /min Carolina Suppan CHILDREN'S AIDE.ENG[employer] Work Phone: [facility] 06-06-2024 11:31-0400 Respiratory rate 18 /min Carolina Suppan CHILDREN'S AIDE.[employer] Work Phone: [facility] 06-06-2024 11:31-0400 SaO2% (BldA) [Mass fraction] 99 % Carolina Suppan CHILDREN'S AIDE.[employer] Work Phone: [facility] 06-06-2024 11:31-0400 Systolic blood pressure 144 mm[Hg] Carolina Suppan CHILDREN'S AIDE.[employer] Work Phone: [facility] 06-05-2024 16:41-0400 Body mass index (BMI) [Ratio] 36.04 kg/m2 Valerie Connelly CHILDREN'S AIDE.[employer] Work Phone: [facility] 06-05-2024 16:41-0400 Body temperature 96.6 [degF] Valerie Connelly CHILDREN'S AIDE.[employer] Work Phone: [facility] 06-05-2024 16:41-0400 Body weight 110.7 kg Valerie Connelly CHILDREN'S AIDE.[employer] Work Phone: [facility] 06-05-2024 16:41-0400 Diastolic blood pressure 70 mm[Hg] Valerie Connelly CHILDREN'S AIDE.ENG[employer] Work Phone: [facility] 06-05-2024 16:41-0400 Heart rate 75 /min Valerie Connelly CHILDREN'S AIDE.ENG[employer] Work Phone: [facility] 06-05-2024 16:41-0400 Respiratory rate 19 /min Valerie Connelly CHILDREN'S AIDE.ENG[employer] Work Phone: [facility] 06-05-2024 16:41-0400 SaO2% (BldA) [Mass fraction] 97 % Valerie Connelly CHILDREN'S AIDE.[employer] Work Phone: [facility] 06-05-2024 16:41-0400 Systolic blood pressure 140 mm[Hg] Valerie Connelly CHILDREN'S AIDE.[employer] Work Phone: [facility] 05-06-2024 17:38-0400 Body height 175.3 cm Corrina Haagen CHILDREN'S AIDE.[employer] Work Phone: [facility] 05-06-2024 17:38-0400 Body mass index (BMI) [Ratio] 37.95 kg/m2 Corrina Haagen CHILDREN'S AIDE.[employer] Work Phone: [facility] 05-06-2024 17:38-0400 Body weight 116.57 kg Corrina Haagen CHILDREN'S AIDE.ENG[employer] Work Phone: [facility] 05-06-2024 17:38-0400 Diastolic blood pressure 58 mm[Hg] Corrina Haagen CHILDREN'S AIDE.[employer] Work Phone: [facility] 05-06-2024 17:38-0400 Heart rate 62 /min Corrina Haagen CHILDREN'S AIDE.ENG[employer] Work Phone: [facility] 05-06-2024 17:38-0400 Respiratory rate 14 /min Corrina Haagen CHILDREN'S AIDE.[employer] Work Phone: [facility] 05-06-2024 17:38-0400 SaO2% (BldA) [Mass fraction] 89 % Corrina Haagen CHILDREN'S AIDE.[employer] Work Phone: [facility] 05-06-2024 17:38-0400 Systolic blood pressure 122 mm[Hg] Corrina Haagen CHILDREN'S AIDE.ENG[employer] Work Phone: [facility] 04-08-2024 15:17-0400 Body mass index (BMI) [Ratio] 37.63 kg/m2 Corrina Haagen CHILDREN'S AIDE.[employer] Work Phone: [facility] 04-08-2024 15:17-0400 Body weight 115.58 kg Corrina Haagen CHILDREN'S AIDE.ENG[employer] Work Phone: [facility] 04-08-2024 14:55-0400 Diastolic blood pressure 58 mm[Hg] Corrina Haagen CHILDREN'S AIDE.[employer] Work Phone: [facility] 04-08-2024 14:55-0400 Heart rate 72 /min Corrina Haagen CHILDREN'S AIDE.[employer] Work Phone: [facility] 04-08-2024 14:55-0400 Respiratory rate 16 /min Corrina Haagen CHILDREN'S AIDE.ENG[employer] Work Phone: [facility] 04-08-2024 14:55-0400 Systolic blood pressure 102 mm[Hg] Corrina Haagen CHILDREN'S AIDE.[employer] Work Phone: [facility] 03-26-2024 16:33-0400 Body height 175.3 cm Guanakito Reno MD Work Phone: [facility] 03-26-2024 16:33-0400 Body mass index (BMI) [Ratio] 37.07 kg/m2 Guanakito Reno MD Work Phone: [facility] 03-26-2024 16:33-0400 Body weight 113.85 kg Guanakito Reno MD Work Phone: [facility] 03-26-2024 16:33-0400 Diastolic blood pressure 46 mm[Hg] Guanakito Reno MD Work Phone: [facility] 03-26-2024 16:33-0400 Heart rate 86 /min Guanakito Reno MD Work Phone: [facility] 03-26-2024 16:33-0400 SaO2% (BldA) [Mass fraction] 98 % Guanakito Reno MD Work Phone: [facility] 03-26-2024 16:33-0400 Systolic blood pressure 98 mm[Hg] Guanakito Reno MD Work Phone: [facility] 03-25-2024 14:52-0400 Body mass index (BMI) [Ratio] 37.21 kg/m2 Pam Reddy MD Work Phone: [facility] 03-25-2024 14:52-0400 Body weight 114.31 kg Pam Reddy MD Work Phone: [facility] 03-25-2024 14:52-0400 Diastolic blood pressure 69 mm[Hg] Pam Reddy MD Work Phone: [facility] 03-25-2024 14:52-0400 Heart rate 66 /min Pam Reddy MD Work Phone: [facility] 03-25-2024 14:52-0400 SaO2% (BldA) [Mass fraction] 96 % Pam Reddy MD Work Phone: [facility] 03-25-2024 14:52-0400 Systolic blood pressure 116 mm[Hg] Pam Reddy MD Work Phone: [facility] 12-22-2023 14:55-0500 Body temperature 97.81 [degF] Carolina Suppan CHILDREN'S AIDE.LABORER Work Phone: [facility] 12-22-2023 14:55-0500 Diastolic blood pressure 60 mm[Hg] Carolina Suppan CHILDREN'S AIDE.LABORER Work Phone: [facility] 12-22-2023 14:55-0500 Heart rate 76 /min Carolina Suppan CHILDREN'S AIDE.LABORER Work Phone: [facility] 12-22-2023 14:55-0500 Respiratory rate 18 /min Carolina Suppan CHILDREN'S AIDE.LABORER Work Phone: [facility] 12-22-2023 14:55-0500 SaO2% (BldA) [Mass fraction] 99 % Carolina Suppan CHILDREN'S AIDE.LABORER Work Phone: [facility] 12-22-2023 14:55-0500 Systolic blood pressure 122 mm[Hg] Carolina Suppan CHILDREN'S AIDE.LABORER Work Phone: [facility] 08-14-2023 13:24-0400 Body height 175.3 cm Guanakito Reno MD Work Phone: [facility] 08-14-2023 13:24-0400 Body weight 120.75 kg Guanakito Reno MD Work Phone: [facility] 08-14-2023 13:24-0400 Diastolic blood pressure 68 mm[Hg] Guanakito Reno MD Work Phone: [facility] 08-14-2023 13:24-0400 Heart rate 59 /min Guanakito Reno MD Work Phone: [facility] 08-14-2023 13:24-0400 SaO2% (BldA) [Mass fraction] 99 % Guanakito Reno MD Work Phone: [facility] 08-14-2023 13:24-0400 Systolic blood pressure 120 mm[Hg] Guaankito Reno MD Work Phone: [facility] 02-13-2023 14:39-0400 Body weight 119.75 kg Pam Reddy MD Work Phone: [facility] 02-13-2023 14:39-0400 Diastolic blood pressure 60 mm[Hg] Pam Reddy MD Work Phone: [facility] 02-13-2023 14:39-0400 Heart rate 78 /min Pam Reddy MD Work Phone: [facility] 02-13-2023 14:39-0400 SaO2% (BldA) [Mass fraction] 96 % Pam Reddy MD Work Phone: [facility] 02-13-2023 14:39-0400 Systolic blood pressure 110 mm[Hg] Pam Reddy MD Work Phone: [facility] 02-06-2023 15:29-0400 Body weight 118.39 kg Guanakito Reno MD Work Phone: [facility] 02-06-2023 15:29-0400 Diastolic blood pressure 58 mm[Hg] Guanakito Reno MD Work Phone: [facility] 02-06-2023 15:29-0400 Heart rate 76 /min Guanakito Reno MD Work Phone: [facility] 02-06-2023 15:29-0400 Respiratory rate 16 /min Guanakito Reno MD Work Phone: [facility] 02-06-2023 15:29-0400 SaO2% (BldA) [Mass fraction] 94 % Guanakito Reno MD Work Phone: [facility] 02-06-2023 15:29-0400 Systolic blood pressure 122 mm[Hg] Guanakito Reno MD Work Phone: [facility] 10-04-2022 10:38-0500 Body height 175.3 cm Alondra Prescott DO Work Phone: [facility] 10-04-2022 10:38-0500 Body weight 117.03 kg Alondra Prescott DO Work Phone: [facility] 10-04-2022 10:38-0500 Diastolic blood pressure 66 mm[Hg] Alondra Prescott DO Work Phone: [facility] 10-04-2022 10:38-0500 Heart rate 57 /min Alondra Prescott DO Work Phone: [facility] 10-04-2022 10:38-0500 SaO2% (BldA) [Mass fraction] 100 % Alondra Prescott DO Work Phone: [facility] 10-04-2022 10:38-0500 Systolic blood pressure 122 mm[Hg] Alondra Prescott DO Work Phone: [facility] 08-15-2022 14:50-0400 Body height 175.3 cm Pam Reddy MD Work Phone: [facility] 08-15-2022 14:50-0400 Body weight 119.3 kg Pam Reddy MD Work Phone: [facility] 08-15-2022 14:50-0400 Diastolic blood pressure 62 mm[Hg] Pam Reddy MD Work Phone: [facility] 08-15-2022 14:50-0400 Heart rate 58 /min Pam Reddy MD Work Phone: [facility] 08-15-2022 14:50-0400 Respiratory rate 18 /min Pam Reddy MD Work Phone: [facility] 08-15-2022 14:50-0400 SaO2% (BldA) [Mass fraction] 98 % Pam Reddy MD Work Phone: [facility] 08-15-2022 14:50-0400 Systolic blood pressure 114 mm[Hg] Pam Reddy MD Work Phone: [facility] 01-19-2022 15:14-0400 Body weight 121.11 kg Guanakito Reno MD Work Phone: [facility] 01-19-2022 15:14-0400 Diastolic blood pressure 68 mm[Hg] Guanakito Reno MD Work Phone: [facility] 01-19-2022 15:14-0400 Heart rate 60 /min Guanakito Reno MD Work Phone: [facility] 01-19-2022 15:14-0400 Systolic blood pressure 124 mm[Hg] Guanakito Reno MD Work Phone: [facility] Encounters Encounter Date Encounter Type Care Provider Facility Start: 08-14-2025 ambulatory Josafat ORTEZ Facil ity:[facility] Start: 07-31-2025 ambulatory Josafat ORTEZ Facil ity:[facility] Start: 07-17-2025 End: 07-17-2025 ambulatory [facility] Facility:[facility] Start: 07-08-2025 End: 07-08-2025 ambulatory Josafat ORTEZ Facility:[facility] Start: 06-24-2025 End: 06-24-2025 ambulatory [facility] Facility:[facility] Start: 06-17-2025 ambulatory [facility] Facility:[facility] Start: 06-12-2025 End: 06-12-2025 ambulatory [facility] Facility:[facility] Start: 06-10-2025 End: 06-10-2025 ambulatory Bianka ORTEZ Facility:[facility] Start: 06-03-[address] Josafat juarez MD -[facility] Start: 06-03-2025 End: 06-03-2025 ambulatory Josafat ORTEZ Facility:[facility] Start: 05-27-[address] Josafat juarez MD [facility] Start: 05-27-2025 End: 05-27-2025 ambulatory Josafat ORTEZ Facility:[facility] Start: 05-20-2025 End: 05-20-[address] Guanakito Reno MD Work Phone: [facility] Start: 05-20-2025 End: 05-20-[address] Josafat Simon MD [facility] Start: 05-20-2025 End: 05-20-2025 ambulatory Josafat ORTEZ Facility:[facility] Start: 05-15-2025 ambulatory Josafat ORTEZ Facil ity:[facility] Start: 05-15-[address] Josafat juarez MD [facility] Start: 05-13-[address] Josafat juarez MD [facility] Start: 05-13-2025 End: 05-13-2025 ambulatory Josafat ORTEZ Facility:[facility] Start: 05-08-2025 ambulatory Josafat ORTEZ Facil ity:[facility] Start: 05-08-[address] Josafat juarez MD [facility] Start: 05-06-[address] Josafat juarez MD [facility] Start: 05-06-2025 End: 05-06-2025 ambulatory Josafat ORTEZ Facility:[facility] Start: 05-02-2025 End: 05-02-[address] Burt Zamora MD -[facility] Start: 05-02-2025 End: 05-02-[address] Guanakito Reno MD Work Phone: [facility] Start: 05-01-2025 ambulatory Josafat ORTEZ Facil ity:[facility] Start: 05-01-[address] Josafat juarez MD [facility] Start: 04-29-[address] Josafat juarez MD -[facility] Start: 04-29-2025 End: 04-29-2025 ambulatory Josafat ORTEZ Facility:[facility] Start: 04-24-2025 ambulatory Josafat ORTEZ Facil ity:[facility] Start: 04-24-[address] Josafat juarez MD -[facility] Start: 04-17-[address] Bianka Gonzalez MD -[facility] Start: 04-17-2025 End: 04-17-2025 ambulatory Bianka ORTEZ Facility:[facility] Start: 04-15-2025 End: 04-15-2025 Telephone encounter Twin Cole [facility] Telemanagement Comment on above: Anticoagulation Tele phone Fu (Home INR result) Start: 04-14-2025 End: 04-14-2025 Telephone encounter Guanakito Reno MD Work Phone: [facility] Comment on above: Patient Question Start: 04-14-2025 ambulatory Josafat García Facility :[facility] Start: 04-14-[address] Josafat García MD -Physical Therapy Work Phone: Start: 04-08-2025 End: 04-08-2025 Refill Carolina A Suppan CHILDREN'S AIDE.[employer] Work Phone: [facility] Comment on above: Refill Request Start: 03-28-2025 End: 03-28-2025 Telephone encounter Guanakito Reno MD Work Phone: [facility] Comment on above: Faxed to [facility] Start: 03-24-2025 End: 03-24-2025 Telephone encounter Alejandro Molina [facility] Telemanagement Comment on above: Anticoagulation Tele phone Fu (Home INR Result ) Start: 03-07-2025 End: 03-07-[address] Josafat García MD -[facility] Work Phone: Start: 03-07-2025 End: 03-07-2025 ambulatory Josafat García Facility:[facility] Start: 03-06-2025 End: 03-06-2025 ambulatory CAROLINA SUPPAN Facility:[facility] Start: 03-05-2025 End: 03-06-2025 Emergency department patient visit KEDAR HERNANDEZ Facility:[facility] Start: 02-20-2025 End: 02-20-2025 Telephone encounter Jimmy Carrizales [facility] Tele[facility] Comment on above: Anticoagulation Tele phone Fu (Home INR) Start: 01-31-2025 End: 01-31-2025 Telephone encounter Kamran Gabo [facility] Tele[facility] Comment on above: Anticoagulation Tele phone Fu (INR Home Test Result) Start: 01-23-2025 End: 03-25-2025 Follow-up encounter Carolina Landeros APRN.[employer] Work Phone: [facility] Start: 01-21-2025 End: 01-21-2025 ambulatory CAROLINA LANDEROS Facility:[facility] Start: 01-21-2025 End: 01-21-2025 Office outpatient visit 25 minutes Carolina Landeros APRN.[employer] Work Phone: [facility] Comment on above: Hyperlipidemia, mixe d [...] (HCC); Chronic renal disease, stage IV (HCC); [facility] (current) use of anticoagulants; Obesity, Class II, BMI 35-39.9; Viral conjunctivitis; Seasonal allergic rhinitis, unspecified trigger; Bilateral impacted cerumen Start: 01-08-2025 End: 01-15-2025 Telephone encounter Ruthie Mason [facility] Comment on above: Anticoagulation Foll ow Up (Home INR result ) Start: 01-07-2025 End: 01-08-2025 Refill Corrina Lennon APRN.[employer] Work Phone: [facility] Comment on above: Refill Request Start: 12-30-2024 End: 12-30-2024 Telephone encounter Twin Cole [facility] Tele[facility] Comment on above: Anticoagulation Tele phone Fu (Home INR result) Start: 12-11-2024 End: 12-11-2024 Telephone encounter Jimmy Carrizales [facility] Tele[facility] Comment on above: Anticoagulation Tele phone Fu (Home INR) Start: 11-26-2024 End: 11-26-2024 Telephone encounter Twin Cole [facility] Tele[facility] Comment on above: Anticoagulation Tele phone Fu (Home INR result) Start: 10-28-2024 End: 10-28-2024 Telephone encounter Alejandro Molina [facility] Comment on above: Anticoagulation Tele phone Fu (Home INR Result ) Start: 10-21-2024 End: 10-21-2024 Telephone encounter Guanakito Reno MD Work Phone: [facility] Comment on above: Patient Update; Rozina ent Question Start: 10-01-2024 End: 10-01-2024 Telephone encounter Twin Cole [facility] Comment on above: Anticoagulation Tele phone Fu (Home INR result) Start: 08-26-2024 End: 08-26-2024 Telephone encounter Alejandro Ulysses [facility] [employer] Comment on above: Anticoagulation Tele phone Fu (Home INR Result ) Start: 08-19-2024 End: 08-19-2024 ambulatory Melania Galindo RN [employer]iliary [employer] Management Comment on above: ACNiels SMITH [...] Start: 07-30-2024 End: 07-30-2024 ambulatory Josselyn Mayer APRN.ENGINEER SOILS Work Phone: [facility] Start: 07-30-2024 End: 08-01-2024 Telephone encounter Josselyn Mayer APRN.ENGINEER SOILS Work Phone: [facility] 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 Start: 07-25-2024 End: 07-26-2024 Telephone encounter Jimmy Carrizales [facility] Ambulatory Telemanagement Comment on above: Anticoagulation (Pat ient update) Start: 07-23-2024 End: 07-23-[address] (I-Stat) Manny dia Start: 07-23-2024 End: 07-23-2024 Subsequent hospital visit by physician [facility] (I-Stat) RADIO [facility] Comment on above: Nonrheumatic aortic valve stenosis [I35.0] Start: 07-15-2024 End: 07-15-2024 Orders Only Valerie Brito APRN.CNP Work Phone: [facility] Comment on above: Paroxysmal atrial fi brillation (HCC) (Primary Dx); Aortic valve stenosis, etiology of cardiac valve disease unspecified Nonrheumatic aortic valve stenosis (Primary Dx); Paroxysmal atrial fibrillation (HCC) Patient Update Results Start: 07-12-2024 End: 07-12-2024 Telephone encounter Guanakito Reno MD Work Phone: [facility] [place] Start: 07-12-2024 End: 07-15-2024 Patient encounter procedure Guanakito Reno MD Work Phone: [facility] [place] Comment on above: Essential hypertensi on (Primary [...] disease, stage IV (HCC); Mixed dementia (HCC); 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; Need for vaccination Essential hypertensi on (Primary Dx) Start: 07-10-2024 End: 07-10-2024 Subsequent hospital visit by physician Ekg/Holter/Event Monitor [place] [facility] Comment on above: Nonrheumatic aortic valve stenosis [I35.0] Start: 07-10-2024 End: 07-10-2024 Patient encounter procedure Cal Mondragon MD Work Phone: [facility] [place] [facility] Comment on above: [...] encounter status Pam Reddy MD Work Phone: [facility] Work Phone: Start: 07-05-2024 End: 07-05-2024 Telephone encounter Annamarie Garcia [facility] Comment on above: Anticoagulation Tele phone Fu Start: 2024 End: 2024 Telephone encounter Guanakito Reno MD Work Phone: Pulmonology [facility] Start: 06-18-2024 End: 06-18-2024 Telephone encounter Jimmy Carrizales [facility] Ambulatory Telemanagement Comment on above: Anticoagulation Tele phone Fu (Home INR) Start: 06-06-2024 End: 06-06-2024 Office outpatient visit 15 minutes Carolina Landeros APRN.ENGINEER SOILS Work Phone: [facility] [place] Comment on above: Aortic valve stenosi s, etiology of cardiac valve disease unspecified (Primary Dx); Hypertensive kidney disease with stage 3b chronic kidney disease (HCC); Paroxysmal atrial fibrillation (HCC); Benign prostatic hyperplasia without lower urinary tract symptoms; Anemia, unspecified type Start: 06-05-2024 End: 06-05-2024 Patient encounter procedure Valerie Connelly APRN.CNP Work Phone: [facility] Comment on above: Blood pressure check (Primary Dx); Leg swelling Start: 06-05-2024 End: 06-05-2024 Patient encounter status Valerie Connelly APRN.CNP Work Phone: [facility] Work Phone: Start: 06-03-2024 End: 06-05-2024 ambulatory Guanakito Reno MD Work Phone: [facility] [place] Comment on above: Water pill/ kidney d r # Start: 05-20-2024 Telephone encounter Josselyn Mayer CHILDREN'S AIDE.ENGINEER SOILS Work Phone: [facility] [place] 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 Work Phone: Radiology Comment on above: Renal insufficiency [N28.9] Start: 04-24-2024 Telephone encounter [facility] Ambulatory Telemanagement Comment on above: Anticoagulation Tele phone Fu (Home INR) Start: 04-19-2024 Telephone encounter Guanakito Reno MD Work Phone: [facility] [place] Comment on above: Results Start: 04-08-2024 End: 04-08-2024 Office outpatient visit 25 minutes Corrina Lennon APRN.ENGINEER SOILS Work Phone: [facility] [place] Comment on [...] Telephone encounter Guanakito Reno MD Work Phone: [facility] Comment on above: Results Start: 04-04-2024 Telephone encounter Jimmy Carrizales [facility] Ambulatory Telemanagement Comment on above: Anticoagulation Tele phone Fu (Home INR) Start: 03-26-2024 End: 03-26-2024 Patient encounter procedure Guanakito Reno MD Work Phone: [facility] Comment on above: Essential hypertensi on [...] or 3b CKD (HCC); Mixed dementia (HCC); [facility] (current) use of anticoagulants; Obesity, Class II, [...] Start: 03-07-2024 Telephone encounter Jimmy Carrizales [facility] Ambulatory Telemanagement Comment on above: Anticoagulation Tele phone Fu Start: 02-14-2024 Telephone encounter [facility] Ambulatory Telemanagement Comment on above: Anticoagulation Tele phone Fu (Home INR results ) Start: 01-17-2024 Refill Guanakito Reno MD Work Phone: [facility] Comment on above: Refill Request requesting medicatio n on list Start: 01-15-2024 Telephone encounter Alejandro [facility] Ambulatory Telemanagement Comment on above: Anticoagulation Tele phone Fu (Home INR Result ) Start: 12-22-2023 End: 12-22-2023 Office outpatient visit 15 minutes Carolina Landeros APRN.LABORER Work Phone: [facility] [place] Comment on above: Abrasion of arm, lef t, initial encounter (Primary Dx); Chronic insomnia Start: 12-21-2023 ambulatory Guanakito Reno MD Work Phone: [facility] [place] Comment on above: skin laceration Start: 12-21-2023 Telephone encounter Jimmy Carrizales [facility] Ambulatory Telemanagement Comment on [...] payer) Start: 08-22-2023 Telephone encounter Twin Kelsey [facility] Ambulatory Telemanagement Comment on above: Anticoagulation Tele phone Fu (Home INR result) Start: 08-16-2023 Telephone encounter Guanakito Reno MD Work Phone: [facility] [place] Comment on above: Results Start: 08-15-2023 Telephone encounter Guanakito Reno MD Work Phone: [facility] [place] Comment on above: Results Start: 08-14-2023 End: 08-14-2023 Patient encounter procedure Guanakito Reno MD Work Phone: [facility] [place] Comment on above: Onychomycosis (Prima ry Dx); [...] 07-04-2023 Refill Guanakito Reno MD Work Phone: [facility] Comment on above: Refill Request Start: 2023 ambulatory Lizette Cardeans RN [facility] [place] Comment on above: QI SMITH RN ( Medication Adherence review per request of payer) Start: 05-22-2023 Telephone encounter [facility] Ambulatory Telemanagement Comment on above: Anticoagulation Tele phone Fu (Home INR Result ) Start: 04-24-2023 Telephone encounter [facility] Ambulatory Telemanagement Comment on above: Anticoagulation Tele phone Fu (Home INR Result ) Start: 04-19-2023 Refill Guanakito Reno MD Work Phone: [facility] Comment on above: Refill Request Start: 03-28-2023 Telephone encounter Twin Jonas [facility] Ambulatory Telemanagement Comment on above: Anticoagulation Tele phone Fu (Home INR result) Start: 02-13-2023 End: 02-13-2023 Patient encounter procedure Pam Reddy MD Work Phone: Cardiology Comment on above: Syncope, unspecified syncope type (Primary Dx); Aortic valve disorder Start: 02-06-2023 End: 02-06-2023 Patient encounter procedure Guanakito Reno MD Work Phone: [facility] [place] Comment on above: Essential hypertensi on [...] Refill Guanakito Reno MD Work Phone: [facility] [place] Comment on above: Refill Request Start: 01-09-2023 Telephone encounter Alejandro Molina [facility] Ambulatory Telemanagement Comment on above: Anticoagulation (INR Result) Start: 12-19-2022 Telephone encounter Alejandro Molina [facility] Ambulatory Telemanagement Comment on above: Anticoagulation Tele phone Fu (Home INR Result ) Start: 11-28-2022 Telephone encounter Alejandro Molina [facility] Ambulatory Telemanagement Comment on above: Anticoagulation Tele phone Fu (Home INR Result ) Start: 11-18-2022 Telephone encounter Kamran Ayon h [facility] Ambulatory Telemanagement Comment on above: Anticoagulation Tele phone Fu Start: 11-04-2022 Telephone encounter Kamran Ayon [facility] Ambulatory Telemanagement Comment on above: Anticoagulation Tele phone Fu (INR Home Test Result) Start: 11-01-2022 Telephone encounter Twin Mo[place]yn[place]ole [facility]Ph [facility] Ambulatory Telemanagement Comment on [...] 09-23-2022 Refill Guanakito Reno MD Work Phone: [facility] Comment on above: Orders; Refill Reque st Start: 09-21-2022 Telephone encounter Ruthie Cuevas [facility] Ambulatory Telemanagement Comment on above: Anticoagulation Tele phone Fu (Home INR result expected) Start: 09-07-2022 ambulatory Lizette Cardenas RN [facility] [place] Comment on above: QI SMITH RN ( Medication Adherence review at request of payer) Start: 08-22-2022 Telephone encounter Alejandro Ulysses [facility] Ambulatory Telemanagement Comment on above: Anticoagulation (INR result) Start: 08-15-2022 End: 08-15-2022 Patient encounter procedure Pam Reddy MD Work Phone: Cardiology Comment on above: Obesity, Class II, B [place] 35-39.9 (Primary Dx); Paroxysmal atrial fibrillation (HCC); Nonrheumatic aortic valve stenosis; Aortic valve disorder Start: 08-01-2022 Telephone encounter Alejandro Molina R [facility] Ambulatory Telemanagement Comment on above: Anticoagulation Tele phone Fu (Home INR Result) Start: 07-22-2022 Refill Guanakito Reno MD Work Phone: [facility] Comment on above: Refill Request Start: 2022 Telephone encounter Alejandro Molina R [facility] Ambulatory Telemanagement Comment on above: Anticoagulation (INR result ) Start: 06-14-2022 ambulatory Nirmala Lim [place] [facility] [place] Comment on above: Population Health Na vigation Outreach ([facility] care gaps) Start: 06-06-2022 Telephone encounter Alejandro Molina [facility] Ambulatory Telemanagement Comment on above: Anticoagulation (Gabrielle e INR) Start: 05-19-2022 Refill Guanakito Reno MD Work Phone: [facility] Comment on above: Refill Request Start: 05-16-2022 Telephone encounter Alejandro Molina [facility] Ambulatory Telemanagement Comment on above: Anticoagulation Tele phone Fu (Home INR Result) Start: 04-25-2022 Telephone encounter Val Oliver [facility] Comment on [...] (testing needed?) Start: 03-09-2022 Telephone encounter Ruthie Denisemanuel [facility] Ambulatory Telemanagement Comment on above: Anticoagulation Tele phone Fu (Home INR result ) Start: 02-17-2022 Telephone encounter Jazmyn Jose RP h Pharmacy Ambulatory Telemanagement Comment on [...] encounter procedure Guanakito Reno MD Work Phone: [facility] Comment on above: Essential hypertensi on [...] (HCC) Start: 01-13-2022 Telephone encounter Jazmyn Jose RP h Pharmacy Ambulatory Telemanagement Comment on above: Anticoagulation Tele phone Fu Start: 06-07-2018 [facility] Facility :[facility] Start: 11-24-2017 End: 11-24-2017 Ambulatory [facility] Facility:[facility] Procedures Date Procedure Procedure Detail Performing [...] Velasquez with bovine patch angioplasty, 04/17/2014 @ [facility] History of carotid endarterectomy History of carotid endarterectomy Guanakito Reno MD Work Phone: History of carotid endarterectomy History of carotid endarterectomy Laura Iraheta MD Work Phone: Plan of Treatment Date Care Activity Detail Author Start: 04-22-2031 Urine microalbumin profile [facility] Start: 01-21-2026 Diabetic foot examination Diabetic Foot Exam [facility] Start: 01-21-2026 Hepatitis B surface antibody level LDL Cholesterol [facility] Start: 08-06-2025 End: 09-05-2025 US Carotid arteries - bilateral US CAROTID BILATERAL Radiology Routine Bilateral carotid artery stenosis History of carotid endarterectomy Expected: 08/06/2025 (Approximate), Expires: 09/05/2025 [facility] Work Phone: Comment on above: Expected: 08/06/2025 (Approximate), Expi res: 09/05/2025 Start: 07-23-2025 End: 07-23-2025 Patient encounter procedure 07/23/2025 3:20 PM EDT Office Visit [facility] [place] [address] [place] [address] Guanakito Reno MD [address] [place] [address] 6 month exam [facility] [place] Comment on above: 6 month exam Start: 07-23-2025 Hemoglobin A1c measurement HbA1C [facility] Start: 07-12-2025 Covid-19 Vaccine ( season) Covid-19 Vaccine () [facility] Comment on above: Postponed from 01/09/2025 (Declined at t his time) Start: 07-12-2025 Hepatitis B surface antibody level LDL Cholesterol [facility] Start: 06-16-2025 Influenza [facility] Start: 05-06-2025 Annual PCP Team Chronic Disease Visit Annual PCP Team Chronic Disease Visit [facility] Start: 05-06-2025 BP Controlled (<130/80) BP Controlled (<130/80) [facility] in Start: 05-02-2025 Plain X-ray of shoulder Shoulder min 2 Views [facility] Start: 05-02-2025 XR Shoulder GE 2 Views [facility] Start: 04-19-2025 Complete blood count Hemoglobin/Hematocrit [facility] Start: 04-19-2025 Creatinine measurement Serum Creatinine [facility] Start: 04-08-2025 Annual PCP Team Chronic Disease Visit Annual PCP Team Chronic Disease Visit [facility] Start: 04-08-2025 BP Controlled (<130/80) BP Controlled (<130/80) [facility] in Start: 04-04-2025 Complete blood count Hemoglobin/Hematocrit [facility] Start: 04-04-2025 Creatinine measurement Serum Creatinine [facility] Start: 03-26-2025 Annual PCP Team Chronic Disease Visit Annual PCP Team Chronic Disease Visit [facility] Start: 03-26-2025 BP Controlled (<130/80) BP Controlled (<130/80) [facility] in Start: 03-26-2025 Covid-19 Vaccine () Covid-19 Vaccine () [facility] Comment on above: Postponed from 12/14/2023 (Declined at t his time) Start: 03-26-2025 Shingrix Vaccine (1 of 2) Shingrix Vaccine (1 of 2) [facility] Comment on above: Postponed from 1993 (Declined at t his time) Start: 03-25-2025 BP Controlled (<130/80) BP Controlled (<130/80) [facility] inic Start: 03-25-2025 Complete blood count Hemoglobin/Hematocrit [facility] Start: 03-25-2025 Creatinine measurement Serum Creatinine [facility] Start: 01-21-2025 End: 01-21-2025 Patient encounter procedure 01/21/2025 3:40 PM EDT Office Visit [facility] [place] [address] [place], [place] [id number] Carolina Landeros CHILDREN'S AIDE.ENGINEER [employer]ILS [address] [place], [place] [address] 6 month follow up [facility] [place] Comment on above: 6 month follow up Start: 01-21-2025 End: 04-22-2025 CBC W Auto Differential panel - Blood [facility] Comment on above: Expected: 01/21/2025, Expires: Start: 01-21-2025 End: 04-22-2025 Cobalamin (Vitamin B12) [Mass/volume] in Serum or Plasma [facility] Comment on above: Expected: 01/21/2025, Expires: Start: 01-21-2025 End: 04-22-2025 Comprehensive metabolic 2000 panel - Serum or Plasma [facility] Work Phone: Comment on above: Expected: 01/21/2025, Expires: Start: 01-21-2025 End: 04-22-2025 Hemoglobin A1c in Blood [facility] Comment on above: Expected: 01/21/2025, Expires: Start: 01-21-2025 End: 04-22-2025 LIPID PANEL, NONFASTING [facility] Comment on above: Expected: 01/21/2025, Expires: Start: 01-21-2025 End: 04-22-2025 Magnesium [Mass/volume] in Serum or Plasma [facility] Comment on above: Expected: 01/21/2025, Expires: Start: 01-13-2025 End: 01-13-2025 Patient encounter procedure 01/13/2025 10:40 AM EDT Office Visit [facility] [place] [address] [place], [place] [address] Guanakito Reno MD [address] [place], [place] [id number] 6 month follow up [facility] [place] Comment on above: 6 month follow up Start: 01-09-2025 Hemoglobin A1c measurement HbA1C [facility] Start: 12-21-2024 BP Controlled (<130/80) BP Controlled (<130/80) [facility] inic Start: 10-16-2024 Advance Directive Discussion Advance Directive Discussion [facility] Start: 10-16-2024 Medicare [facility] Annual Wellness Visit Medicare Advantage Annual Wellness Visit [facility] Start: 10-04-2024 Hemoglobin A1c measurement HbA1C [facility] Start: 08-14-2024 3 comp foot exam completed Diabetic Foot Exam [facility] Start: 08-14-2024 Annual PCP Team Chronic Disease Visit Annual PCP Team Chronic Disease Visit [facility] Start: 08-14-2024 BP Controlled (<130/80) BP Controlled (<130/80) [facility] inic Start: 08-14-2024 Complete blood count Hemoglobin/Hematocrit [facility] Start: 08-14-2024 Creatinine measurement Serum Creatinine [facility] Start: 08-14-2024 Diabetic foot examination Diabetic Foot Exam [facility] Start: 08-14-2024 Hemoglobin/Hematocrit Hemoglobin/Hematocrit [facility] Start: 08-14-2024 Hepatitis B surface antibody level LDL Cholesterol [facility] Start: 08-14-2024 Hepatitis B Vaccine (1 of 3 - Risk 3-dose series) Hepatitis B Vaccine (1 of 3 - Risk 3-dose series) [facility] Comment on above: Postponed from 2003 (Declined at t his time) Start: 08-14-2024 RSV Vaccine (1 - 1-dose 60+ series) RSV Vaccine (1 - 1-dose 60+ series) [facility] Comment on above: Postponed from 2003 (Declined at t his time) Start: 08-14-2024 RSV Vaccine (1 - 1-dose 75+ series) RSV Vaccine (1 - 1-dose 75+ series) [facility] Comment on above: Postponed from 2018 (Declined at t his time) Start: 08-14-2024 Serum Creatinine Serum Creatinine [facility] Start: 08-06-2024 End: 08-06-2024 Patient encounter procedure 08/06/2024 1:00 PM EDT Office Visit [facility] [address] [place] [address] Laura Iraheta MD [address] [facility] [address] [place], [place] [id number] Referral from Josselyn Mayer - carotid stenosis 05/02/24 Carotid US [facility] Comment on above: Referral from Josselyn Mayer - carotid s tenosis 05/02/24 Carotid US Start: 07-29-2024 End: 07-29-2024 ambulatory 07/29/2024 11:15 AM EDT Results Only [facility] [address] [place] [address] [facility] Start: 07-23-2024 End: 07-23-2024 Admission to same day surgery center 07/23/2024 10:00 AM EDT - 07/23/2024 11:30 AM EDT Surgery [place] [employer] [address] [place] [address] Pam Reddy MD [address] [facility], [address] [place], [place] [phone] CORONARY CATH RIGHT/LEFT HEART ANGIO INTRAPROCEDURAL INJECT IMAGING SUPERVISIO/INTERPRETATIO N [place] [employer] Comment on above: CORONARY CATH RIGHT/LEFT HEART ANGIO INT RAPROCEDURAL INJECT IMAGING SUPERVISIO/INTERPRETATION Start: 07-23-2024 End: 07-23-2024 R & l hrt cath winjx hrt art& l ventr img CORONARY CATH RIGHT/LEFT HEART ANGIO INTRAPROCEDURAL INJECT IMAGING SUPERVISIO/INTERPRETATIO N Valvular heart disease 07/23/2024 10:00 AM EDT [place] [employer] Start: 07-23-2024 Subsequent hospital visit by physician 07/23/2024 10:00 AM EDT Hospital Encounter [place] [employer] [employer] [address] [place] [address] Pam Reddy MD [address] [place] [address] Valvular heart disease [I38] [facility] [employer] [facility] Comment on above: Valvular heart disease [I38] Start: 07-23-2024 End: 07-23-2024 Patient encounter procedure 07/23/2024 7:30 AM EDT Appointment [facility] [address] [place] [address] 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 [...] atrial fibrillation (HCC) Expected: 07/15/2024, Expires: 10/14/2024 [facility] Work Phone: Comment on above: Expected: 07/15/2024, Expires: Start: 07-12-2024 End: 10-11-2024 CBC W Auto Differential panel - Blood [facility] Comment on above: Expected: 07/12/2024, Expires: Start: 07-12-2024 End: 10-11-2024 Comprehensive metabolic 2000 panel - Serum or Plasma [facility] Comment on above: Expected: 07/12/2024, Expires: Start: 07-12-2024 End: 10-11-2024 Hemoglobin A1c in Blood [facility] Work Phone: Comment on above: Expected: 07/12/2024, Expires: Start: 07-12-2024 End: 10-11-2024 LIPID PANEL, NONFASTING [facility] Comment on above: Expected: 07/12/2024, Expires: Start: 07-12-2024 End: 07-12-2024 Patient encounter procedure 07/12/2024 11:20 AM EDT Office Visit [facility] [place] [address] [place] [address] Guanakito Reno MD [address] [place], [place] [phone] 2 month follow up- stool sample,kidney and meds [facility] [place] Comment on above: 2 month follow up- stool sample,kidney a nd meds Start: 07-10-2024 End: 10-09-2024 Basic metabolic 2000 panel - Serum or Plasma BASIC METABOLIC PANEL Lab Routine Nonrheumatic aortic valve stenosis Expected: 07/10/2024, Expires: 10/09/2024 [facility] Comment on above: Expected: 07/10/2024, Expires: Start: 07-10-2024 End: 10-09-2024 CBC panel - Blood by Automated count COMPLETE BLOOD COUNT Lab Routine Nonrheumatic aortic valve stenosis Expected: 07/10/2024, Expires: 10/09/2024 [facility] Comment on above: Expected: 07/10/2024, Expires: Start: 07-10-2024 End: 10-09-2024 Natriuretic peptide.B prohormone N-Terminal [Mass/volume] in Serum or Plasma NT PRO BNP Lab Routine Nonrheumatic aortic valve stenosis Dyspnea on exertion Expected: 07/10/2024, Expires: 10/09/2024 [facility] Comment on above: Expected: 07/10/2024, Expires: Start: 07-10-2024 End: 10-09-2024 PT panel - Platelet poor plasma by Coagulation assay PROTHROMBIN TIME Lab Routine Nonrheumatic aortic valve stenosis Expected: 07/10/2024, Expires: 10/09/2024 [facility] Comment on above: Expected: 07/10/2024, Expires: Start: 07-10-2024 End: 07-10-2024 Patient encounter procedure [facility] Comment on above: Valve Clinic- Initial Visit- 5M Walk,EKG ,KCCQ Start: 06-16-2024 Covid-19 Vaccine () Covid-19 Vaccine () [facility] Start: 06-16-2024 Covid-19 Vaccine () Covid-19 Vaccine () [facility] Start: 06-16-2024 Influenza vaccination [facility] Start: 06-06-2024 End: 06-06-2024 Patient encounter procedure 06/06/2024 11:20 AM EDT Office Visit Family Lin Brennan [address] [place] [address] Carolina Landeros CHILDREN'S AIDE.[employer] [address] [place] [address] Urgent care follow up Family Lin Brennan Comment on above: Urgent care follow up Start: 05-06-2024 End: 05-06-2024 Patient encounter procedure 05/06/2024 5:40 PM EDT Office Visit Family Lin Brennan [address] [place] [address] Corrina Lennon APRN.[employer] [address] [place] [address] 1 month follow up Family Lin Brennan Comment on above: 1 month follow up Start: 05-02-2024 End: 05-02-2024 Patient encounter procedure Radiology Comment on above: Renal insufficiency [N28.9] History of carotid e ndarterectomy [Z98.890] Syncope, unspecified syncope type [R55]; Aortic valve disorder [I35.9] Start: 04-08-2024 End: 04-08-2024 Patient encounter procedure 04/08/2024 3:00 PM EDT Office Visit Family [facility] [place] [address] [place] [address] Corrina Lennon APRN.[employer] [address] [place] [address] 2 w f/u Family Medicine Carole Comment on above: 2 w f/u Start: 04-08-2024 End: 03-25-2025 Echocardiography ECHO Cardiology Routine Syncope, unspecified syncope type Aortic valve disorder Expected: 04/08/2024, Expires: 03/25/2025 [facility] Comment on above: Expected: 04/08/2024, Expires: 5 Start: 04-05-2024 End: 07-05-2024 Basic metabolic 2000 panel - Serum or Plasma BASIC METABOLIC PANEL Lab Routine CKD (chronic kidney disease) stage 4, 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/min (HCC) Anemia, unspecified type Expected: 04/05/2024, Expires: 07/05/2024 [facility] Comment on above: Expected: 04/05/2024, Expires: 4 Start: 04-05-2024 End: 07-05-2024 CBC W Auto Differential panel - Blood COMPLETE BLOOD COUNT AND DIFFERENTIAL Lab Routine CKD (chronic kidney disease) stage 4, 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/min (HCC) Anemia, unspecified type Expected: 04/05/2024, Expires: 07/05/2024 [facility] Comment on above: Expected: 04/05/2024, Expires: 4 Start: 03-26-2024 End: 03-26-2024 Patient encounter procedure 03/26/2024 4:40 PM EDT Office Visit [facility] Lin Carole [address] [place] [address] Guanakito Reno MD [address] [place] [address] 3 month f/u [facility] Lin Lindseyoster Comment on above: 3 month f/u Start: 03-26-2024 End: 06-25-2024 Basic metabolic 2000 panel - Serum or Plasma BASIC METABOLIC PANEL Lab Routine Renal insufficiency Expected: 03/26/2024, Expires: 06/25/2024 [facility] Comment on above: Expected: 03/26/2024, Expires: 4 Start: 03-26-2024 End: 03-26-2025 CBC W Auto Differential panel - Blood COMPLETE BLOOD COUNT AND DIFFERENTIAL Lab Routine Anemia, unspecified type Expected: 03/26/2024, Expires: 03/26/2025 [facility] Comment on above: Expected: 03/26/2024, Expires: Start: 03-26-2024 End: 03-26-2025 Cobalamin (Vitamin B12) [Mass/volume] in Serum or Plasma VITAMIN B12 Lab Routine Anemia, unspecified type Expected: 03/26/2024, Expires: 03/26/2025 [facility] Comment on above: Expected: 03/26/2024, Expires: 5 Start: 03-26-2024 End: 03-26-2025 Ferritin [Mass/volume] in Serum or Plasma FERRITIN Lab Routine Anemia, unspecified type Expected: 03/26/2024, Expires: 03/26/2025 [facility] Comment on above: Expected: 03/26/2024, Expires: 5 Start: 03-26-2024 End: 03-26-2025 Folate [Mass/volume] in Serum or Plasma FOLATE, SERUM Lab Routine Anemia, unspecified type Expected: 03/26/2024, Expires: 03/26/2025 [facility] Comment on above: Expected: 03/26/2024, Expires: 5 Start: 03-26-2024 End: 06-25-2024 Hemoglobin A1c in Blood HEMOGLOBIN A1C Lab Routine Type 2 diabetes mellitus with stage 3 chronic kidney disease, without long-term current use of insulin, unspecified whether stage 3a or 3b CKD (HCC) Expected: 03/26/2024, Expires: 06/25/2024 [facility] Comment on above: Expected: 03/26/2024, Expires: 4 Start: 03-26-2024 End: 03-26-2025 Hemoglobin.gastrointestin al.lower [Presence] in Stool by Immunoassay IMMUNOCHEMICAL FECAL OCCULT BLOOD TEST Lab Routine Anemia, unspecified type Expected: 03/26/2024, Expires: 03/26/2025 [facility] Comment on above: Expected: 03/26/2024, Expires: Start: 03-26-2024 End: 03-26-2025 Iron and Iron binding capacity panel - Serum or Plasma IRON AND TIBC Lab Routine Anemia, unspecified type Expected: 03/26/2024, Expires: 03/26/2025 [facility] Comment on above: Expected: 03/26/2024, Expires: Start: 03-25-2024 End: 03-25-2024 Patient encounter procedure 03/25/2024 2:40 PM EDT Office Visit Cardiology [address] [place] [id number] Pma Reddy MD [address] [facility], [address] [place] [address] 1 yr f/u Cardiology Comment on above: 1 yr f/u Start: 02-14-2024 BP CONTROLLED (<130/80) BP CONTROLLED (<130/80) [facility] Start: 02-13-2024 Hemoglobin A1c measurement HbA1C [facility] Start: 02-13-2024 Hemoglobin A1c/Hemoglobin.total in Blood HbA1C [facility] Start: 02-07-2024 3 comp foot exam completed DIABETIC FOOT EXAM [facility] Start: 02-07-2024 ANNUAL PCP TEAM CHRONIC DISEASE VISIT ANNUAL PCP TEAM CHRONIC DISEASE VISIT [facility] Start: 02-07-2024 BP CONTROLLED (<130/80) BP CONTROLLED (<130/80) [facility] in Start: 02-07-2024 SHINGRIX VACCINE (1 of 2) SHINGRIX VACCINE (1 of 2) [facility] Comment on above: Postponed from 1993 (Insurance Cov erage) Start: 12-14-2023 Covid-19 Vaccine () Covid-19 Vaccine () [facility] Start: 10-16-2023 Advance Directive Discussion Advance Directive Discussion [facility] Start: 10-04-2023 BP CONTROLLED (<130/80) BP CONTROLLED (<130/80) [facility] Start: 08-15-2023 End: 08-15-2024 Basic metabolic 2000 panel - Serum or Plasma BASIC METABOLIC PNL Lab Routine Renal insufficiency Expected: 08/15/2023, Expires: 08/15/2024 [facility] Work Phone: Comment on above: Expected: 08/15/2023, Expires: Start: 08-15-2023 BP CONTROLLED (<130/80) BP CONTROLLED (<130/80) [facility] Start: 08-15-2023 End: 11-14-2023 Urinalysis complete panel - Urine URINALYSIS, WITH MICROSCOPIC Lab Routine Renal insufficiency Expected: 08/15/2023, Expires: 11/14/2023 [facility] Work Phone: Comment on above: Expected: 08/15/2023, Expires: 4 Start: 06-16-2023 Covid-19 Vaccine ( season) Covid-19 Vaccine ( season) [facility] Start: 06-16-2023 Influenza vaccination [facility] Start: 06-08-2023 COVID-19 VACCINE (5 - Moderna series) COVID-19 VACCINE (5 - Moderna series) [facility] Start: 03-29-2023 BP CONTROLLED (<130/80) BP CONTROLLED (<130/80) [facility] Start: 02-20-2023 End: 02-14-2024 Echocardiography ECHO Cardiology Routine Syncope, unspecified syncope type Aortic valve disorder Expected: 02/20/2023, Expires: 02/14/2024 [facility] Work Phone: Comment on above: Expected: 02/20/2023, Expires: 4 Start: 02-06-2023 End: 04-08-2023 ALBUMIN/CREAT RATIO RND UR ALBUMIN/CREAT RATIO RND UR Lab Routine Type 2 diabetes mellitus with stage 3 chronic kidney disease, without long-term current use of insulin, unspecified whether stage 3a or 3b CKD (HCC) Expected: 02/06/2023, Expires: 04/08/2023 [facility] Work Phone: Comment on above: Expected: 02/06/2023, Expires: Start: 02-06-2023 End: 04-08-2023 CBC W Auto Differential panel - Blood CBC + DIFF Lab Routine Type 2 diabetes mellitus with stage 3 chronic kidney disease, without long-term current use of insulin, unspecified whether stage 3a or 3b CKD (HCC) Expected: 02/06/2023, Expires: 04/08/2023 [facility] Work Phone: Comment on above: Expected: 02/06/2023, Expires: Start: 02-06-2023 End: 04-08-2023 Comprehensive metabolic 2000 panel - Serum or Plasma COMP METABOLIC PANEL Lab Routine Type 2 diabetes mellitus with stage 3 chronic kidney disease, without long-term current use of insulin, unspecified whether stage 3a or 3b CKD (HCC) Expected: 02/06/2023, Expires: 04/08/2023 [facility] Work Phone: Comment on above: Expected: 02/06/2023, Expires: Start: 02-06-2023 End: 04-08-2023 Hemoglobin A1c in Blood HGB A1C Lab Routine Type 2 diabetes mellitus with stage 3 chronic kidney disease, without long-term current use of insulin, unspecified whether stage 3a or 3b CKD (HCC) Expected: 02/06/2023, Expires: 04/08/2023 [facility] Work Phone: Comment on above: Expected: 02/06/2023, Expires: Start: 02-06-2023 End: 04-08-2023 Lipid 1996 panel - Serum or Plasma LIPID PANEL BASIC Lab Routine Type 2 diabetes mellitus with stage 3 chronic kidney disease, without long-term current use of insulin, unspecified whether stage 3a or 3b CKD (HCC) Expected: 02/06/2023, Expires: 04/08/2023 [facility] Work Phone: Comment on above: Expected: 02/06/2023, Expires: 3 Start: 01-19-2023 ANNUAL PCP TEAM CHRONIC DISEASE VISIT ANNUAL PCP TEAM CHRONIC DISEASE VISIT [facility] Start: 01-19-2023 BP CONTROLLED (<130/80) BP CONTROLLED (<130/80) [facility] inic Start: 01-18-2023 HEMOGLOBIN/HEMATOCRIT HEMOGLOBIN/HEMATOCRIT [facility] Start: 01-18-2023 Hepatitis B screening URINE ALBUMIN:CREATININE RATIO [facility] Start: 01-18-2023 SERUM CREATININE SERUM CREATININE [facility] Start: 12-21-2022 Hepatitis B surface antibody level LDL CHOLESTEROL [facility] Start: 10-16-2022 ADVANCE DIRECTIVE DISCUSSION ADVANCE DIRECTIVE DISCUSSION [facility] Start: 08-22-2022 End: 08-15-2023 Echocardiography ECHO Cardiology Routine Nonrheumatic aortic valve stenosis Expected: 08/22/2022, Expires: 08/15/2023 [facility] Work Phone: Comment on above: Expected: 08/22/2022, Expires: 3 Start: 07-20-2022 Hemoglobin A1c/Hemoglobin.total in Blood HBA1C [facility] Start: 06-16-2022 Influenza vaccination [facility] Start: 04-12-2022 COVID-19 VACCINE (4 - Booster for Moderna series) COVID-19 VACCINE (4 - Booster for Moderna series) [facility] Start: 02-18-2022 End: 04-20-2022 Basic metabolic 2000 panel - Serum or Plasma BASIC METABOLIC PNL Lab Routine Essential hypertension with goal blood pressure less than 140/90 Expected: 02/18/2022, Expires: 04/20/2022 [facility] Work Phone: Comment on above: Expected: 02/18/2022, Expires: 2 Start: 02-07-2022 COVID-19 VACCINE (4 - Booster for Moderna series) COVID-19 VACCINE (4 - Booster for Moderna series) [facility] Start: 10-16-2021 ADVANCE DIRECTIVE DISCUSSION ADVANCE DIRECTIVE DISCUSSION [facility] Start: 01-18-2020 3 comp foot exam completed DIABETIC FOOT EXAM [facility] Start: 12-05-2019 Glaucoma screening Dilated Retinal Exam [facility] Start: 12-05-2019 Hepatitis C antibody, confirmatory test DILATED RETINAL EXAM [facility] Start: 2018 RSV Vaccine (1 - 1-dose 75+ series) RSV Vaccine (1 - 1-dose 75+ series) [facility] Start: 2003 Hepatitis B Vaccine (1 of 3 - Risk 3-dose series) Hepatitis B Vaccine (1 of 3 - Risk 3-dose series) [facility] Start: 1993 SHINGRIX VACCINE (1 of 2) SHINGRIX VACCINE (1 of 2) [facility] Start: 1961 BP Controlled (<130/80) BP Controlled (<130/80) [facility] inic Start: 1961 HEPATITIS C SCREENING HEPATITIS C SCREENING [facility] Start: 1949 PNEUMOCOCCAL: 65+ (1 - PCV) PNEUMOCOCCAL: 65+ (1 - PCV) [facility] End: 08-09-2025 CTA Abdominal vessels and Pelvis vessels W contrast IV CTA ABD/PEL W IVCON Radiology Routine Nonrheumatic aortic valve stenosis Encounter for preprocedural cardiovascular examination 1 Occurrences starting 07/10/2024 until 08/09/2025 [facility] Work Phone: Comment on above: 1 Occurrences starting 07/10/2024 until 08/09/2025 End: 07-23-2024 CTA Abdominal vessels and Pelvis vessels W contrast IV [facility] Work Phone: Comment on above: 1 Occurrences starting 07/23/2024 until 07/23/2024 End: 08-09-2025 CTA Chest vessels WO and W contrast IV CTA CHEST (GATED) WO/W IVCON Radiology Routine Nonrheumatic aortic valve stenosis Encounter for preprocedural cardiovascular examination 1 Occurrences starting 07/10/2024 until 08/09/2025 [facility] Comment on above: 1 Occurrences starting 07/10/2024 until 08/09/2025 End: 07-23-2024 CTA Chest vessels WO and W contrast IV [facility] Comment on above: 1 Occurrences starting 07/23/2024 until 07/23/2024 ECG COMPLETE ECG COMPLETE ECG Routine Syncope, unspecified syncope type Aortic valve disorder Paroxysmal atrial fibrillation (HCC) Ordered: 03/21/2024 [facility] Work Phone: Comment on above: Ordered: 03/21/2024 End: 07-10-2025 EXTENDED WEAR NURSING SERVICES MANAGER PATCH EXTENDED WEAR NURSING SERVICES MANAGER PATCH ECG Routine Nonrheumatic aortic valve stenosis 1 Occurrences starting 07/10/2024 until 07/10/2025 [facility] Comment on above: 1 Occurrences starting 07/10/2024 until 07/10/2025 End: 07-10-2024 EXTENDED WEAR NURSING SERVICES MANAGER PATCH EXTENDED WEAR NURSING SERVICES MANAGER PATCH ECG Routine Nonrheumatic aortic valve stenosis 1 Occurrences starting 07/10/2024 until 07/10/2024 [facility] Work Phone: Comment on above: 1 Occurrences starting 07/10/2024 until 07/10/2024 Hemoglobin.tony lopezlower [Presence] in Stool by Immunoassay IMMUNOCHEMICAL FECAL OCCULT BLOOD TEST Lab Routine CKD (chronic kidney disease) stage 4, 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/min ([facility]) Anemia, unspecified type Ordered: 04/05/2024 [facility] Work Phone: Comment on above: Ordered: 04/05/2024 Hemoglobin.tony velez alTituslower [Presence] in Stool by Immunoassay IMMUNOCHEMICAL FECAL OCCULT BLOOD TEST Lab Routine Screen for colon cancer Ordered: 2024 [facility] Work Phone: Comment on above: Ordered: 2024 OUTSIDE VENDOR CARDI AC OUTPATIENT EXTENDED RHYTHM RECORDING (WITHOUT TELEMETRY) OUTSIDE VENDOR CARDIAC OUTPATIENT EXTENDED RHYTHM RECORDING (WITHOUT TELEMETRY) Holter Routine Syncope, unspecified syncope type Ordered: 02/13/2023 [facility] Work Phone: Comment on above: Ordered: 02/13/2023 Removal impacted cer umen irrigation/lvg unilat AMBULATORY EAR LAVAGE/IRRIGATION Procedures Routine Bilateral impacted cerumen Ordered: 01/21/2025 [facility] Comment on above: Ordered: 01/21/2025 End: 03-26-2025 US Carotid arteries - bilateral US CAROTID ARTERIES [facility] Vascular Lab Routine History of carotid endarterectomy 1 Occurrences starting 03/26/2024 until 03/26/2025 [facility] Work Phone: Comment on above: 1 Occurrences starting 03/26/2024 until 03/26/2025 End: 03-16-2023 US CAROTID ARTERIES [facility] US CAROTID ARTERIES [facility]RAY [facility] Vascular Lab Routine Bilateral carotid artery stenosis 1 Occurrences starting 03/18/2022 until 03/16/2023 [facility] Work Phone: Comment on above: 1 Occurrences starting 03/18/2022 until 03/16/2023 End: 10-04-2023 US CAROTID ARTERIES GRYA [facility] US CAROTID ARTERIES GRAY [facility] Vascular Lab Routine Bilateral carotid artery stenosis 1 Occurrences starting 10/04/2022 until 10/04/2023 [facility] Work Phone: Comment on above: 1 Occurrences starting 10/04/2022 until 10/04/2023 End: 04-25-2025 US Kidney - bilateral and Urinary bladder US KIDNEY/BLADDER Radiology Routine Renal insufficiency 1 Occurrences starting 03/26/2024 until 04/25/2025 [facility] Comment on above: 1 Occurrences starting 03/26/2024 until 04/25/2025 [facility] Immunizations Immunization Date Immunization Notes Care Provider [facility] 07-12-2024 COVID-19 vaccine, ag e 12+ yr ([employer] [facility]) Guanakito Reno MD Work Phone: [facility] 07-12-2024 influenza, high dose seasonal, preservative-free Guanakito Reno MD Work Phone: [facility] 07-12-2024 influenza virus vacc ine, unspecified formulation Guanakito Reno MD Work Phone: [facility] 08-14-2023 COVID-19 vaccine, ag e 12+ yr, season ([employer]) Guanakito Reno MD Work Phone: [facility] 08-14-2023 influenza (HD-IIV4) vaccine, age 65+ yr, high dose, quadrivalent, PF (FLUZONE HIGH-DOSE) Guanakito Reno MD Work Phone: [facility] 08-14-2023 influenza virus vacc ine, unspecified formulation Ruthie Cuevas [facility] 02-06-2023 COVID-19 vaccine, ag e 12+ yr, bivalent ([employer]) Guanakito Reno MD Work Phone: [facility] 12-13-2021 COVID-19 vaccine, ag e 12+ yr ([employer] - [facility]) Guanakito Reno MD Work Phone: [facility] 04-22-2021 tetanus and diphther ia toxoids, adsorbed, preservative free, for adult use (5 Lf of tetanus toxoid and 2 Lf of diphtheria toxoid) Guanakito Reno MD Work Phone: [facility] 02-16-2021 COVID-19 vaccine, fu ll dose (MODERNA) Guanakito Reno MD Work Phone: [facility] Work Phone: 01-19-2021 COVID-19 vaccine, fu ll dose (MODERNA) Guanakito Reno MD Work Phone: [facility] Work Phone: 07-18-2019 influenza, high dose seasonal, preservative-free Guanakito Reno MD Work Phone: [facility] Work Phone: 07-18-2019 influenza virus vacc ine, unspecified formulation Lizette Cardenas RN [facility] 09-15-2017 influenza, high dose seasonal, preservative-free Guanakito Reno MD Work Phone: [facility] 08-11-2016 influenza, high dose seasonal, preservative-free Guanakito Reno MD Work Phone: [facility] 08-11-2016 pneumococcal polysaccharide vaccine, 23 valent Guanakito Reno MD Work Phone: [facility] 08-10-2015 influenza, high dose seasonal, preservative-free Guanakito Reno MD Work Phone: [facility] 04-09-2015 pneumococcal conjuga te vaccine, 13 valent Guanakito Reno MD Work Phone: [facility] 10-21-2013 influenza virus vacc ine, unspecified formulation Guanakito Reno MD Work Phone: [facility] 08-08-2012 influenza virus vacc ine, unspecified formulation Guanakito Reno MD Work Phone: [facility] Work Phone: 10-12-2005 pneumococcal polysaccharide vaccine, 23 valent Guanakito Reno MD Work Phone: [facility] Work Phone: 12-02-2003 diphtheria and tetan us toxoids, adsorbed for pediatric use Guanakito Reno MD Work Phone: [facility] Work Phone: Payers Date Payer Category Payer Self-pay 2025 Unknown [id number] 2019 Medicare UHC AAR MEDICAR E [facility] MEDICARE O [id number] 2019-Present [phone] [address] [place], [place] [id number] [id number] 2019 Medicare UHC AAR MEDICAR E [facility] MEDICARE O [id number] 2019-Present [phone] [place] [id number] [facility] [id number] 2019 Medicare (Managed Care) [facility] MEDICARE HMO [id number] 2019 Medicare [id number] 2009 Unknown [id number] 2008 Medicare [id number] Medicare [id number] Unknown [id number] [id number]. 462 Unknown [id number] 2.16.840.1.754842.3.579.2. 462 Unknown [id number] 2.16.840.1.849928.3.579.2. 462 Unknown [id number] .16840.1.544898.3.579.2. 462 Unknown [id number] 2.16.840.1.346034.3.579.2. 462 Unknown [id number] 2.16.840.1.850176.3.579.2. 462 Unknown [id number] 2.840.1.782606.3.579.2. 462 Unknown [id number] 2.840.1.227680.3.579.2. 462 Unknown [id number] 2.16840.1.520949.3.579.2. 462 Unknown [id number] 2.16.840.1.710672.3.579.2. 462 Unknown [id number] 2.16.840.1.167040.3.579.2. 462 Unknown [id number] 2.16.840.1.345706.3.579.2. 462 Unknown [id number] .16.840.1.504727.3.579.2. 462 Unknown [id number] 2.16.840.1.539667.3.579.2. 462 Unknown [id number] 2.16840.1.145682.3.579.2. 462 Unknown [id number] 2.16.840.1.839626.3.579.2. 462 Unknown [id number] 2.16840.1.772314.3.579.2. 462 Unknown [id number] 2.16.840.1.811259.3.579.2. 462 Unknown [id number] 2.16.840.1.711101.3.579.2. 462 Unknown [id number] 2.16.840.1.448790.3.579.2. 462 Unknown [id number] 2.16840.1.026511.3.579.2. 462 Unknown [id number] 2.16840.1.025701.3.579.2. 462 Unknown [id number] 2.840.1.051043.3.579.2. 462 Social History Date Type Detail Facility Start: 08-10-2015 End: 03-06-2025 Tobacco smoking status NHIS Ex-smoker [facility] Start: 12-05-1975 End: 12-05-1985 History of tobacco use Current smoker [facility] Start: 12-05-1975 End: 12-05-1985 History of tobacco use Cigarette Smoker [facility] Start: 01-19-2022 End: 03-06-2025 Alcohol intake Current non-drinker of alcohol (finding) [facility] Start: 10-26-2020 History SDOH Alcohol Frequency 1 [facility] Start: 10-26-2020 History SDOH Alcohol Std Drinks 98 [facility] Start: 05-15-2019 History SDOH Alcohol Comment none now; social in past [facility] Start: 10-26-2020 History SDOH Social Connections Get Together 2 [facility] Start: 10-26-2020 History SDOH Social Connections Living 4 [facility] Start: 10-26-2020 History SDOH Physica l Activity DPW 0 [facility] Start: 10-26-2020 History SDOH Financial 5 [facility] Start: 10-26-2020 Education 14 [facility] Start: 1945 Sex Assigned At Not on file [facility] Start: 01-09-2022 End: 08-15-2022 Exposure to SARS-CoV-2 (event) Not sure [facility] Start: 03-22-2022 End: 04-01-2022 Exposure to SARS-CoV-2 (event) Unable to assess [facility] Work Phone: Start: 08-10-2015 End: 04-11-2023 Cigarettes smoked current (pack per day) - Reported 2 [facility] Start: 08-10-2015 End: 06-05-2024 Tobacco use and exposure Smokeless tobacco non-user [facility] Start: 10-26-2020 End: 04-11-2023 Social connection and isolation panel [facility] Do you belong to any clubs or organizations such as jew groups, unions, [employer] or athletic groups, or school groups? No [facility] Are you now , , , , never or living with a partner? [facility] How often to you hav e a drink containing alcohol? Never [facility] How many standard dr inks containing alcohol do you have on a typical day? Patient refused [facility] Do you feel stress - tense, restless, nervous, or anxious, or unable to sleep at night because your mind is troubled all the time - these days [OSQ] Only a little [facility] (I/We) worried vannesa er (my/our) food would run out before (I/we) got money to buy more. Never true [facility] Start: 1945 Sex Assigned At Male [facility] Medical Equipment Procedure Code Equipment Code Equipment Origin al Text Equipment Identifier Dates [id number], [id number] Start: 11-11-2011 Comment on above: Test blood sugar(s) one times daily. Dx: 250.00. Insulin: No Test blood sugar(s) one time daily. Dx: 250.00. Insulin: No Goals Date Patient Goal Desired Activity /State Personal health goal Functional Status Date Assessment Result Facility 04-09-2015 Are you deaf, or do you have serious difficulty hearing No 04/09/2015 11:20 AM Stephany Welch MA No [facility] 04-09-2015 Are you blind, or do you have serious difficulty seeing, even when wearing glasses No 04/09/2015 11:20 AM Stephany Welch MA No [facility] 04-09-2015 Do you have serious difficulty walking or climbing stairs No 04/09/2015 11:20 AM Stephany Welch MA No [facility] 04-09-2015 Do you have difficul ty dressing or bathing No 04/09/2015 11:20 AM EDT Stephany Graves MA No [facility] 04-09-2015 Because of a physica l, mental, or emotional condition, do you have difficulty doing errands alone such as visiting a physician's office or shopping No 04/09/2015 11:20 AM EDT Stephany Graves MA No [facility] Mental Status Date Assessment Result Facility 04-09-2015 Because of a physica l, mental, or emotional condition, do you have serious difficulty concentrating, remembering, or making decisions No 04/09/2015 11:20 AM EDT Stephany Graves MA No [facility] Clinical Notes 03-29-2011 to 04-15-2025 Telephone Encounter - Twin Cole RP - 04/15/2025 9:09 AM EDTTelephone Encounter - Twin Cole [facility] - 04/15/2025 9:09 AM EDTTelephone Encounter - Leidy Malone RN - 04/14/2025 3:18 PM EDT Note Date & Type Note Facility 04-15-2025 Telephone encount er Note [facility] Ambulatory Pharmacy Anticoagulation Clinic Anticoagulation Episode Summary Anticoagulation Care Providers Provider Role Specialty Phone number Guanakito Reon MD [facility] [phone] Cal Mitchell is a 79 year old [...] Pharmacy Anticoagulation Clinic [facility] Pager: [phone]. [facility] 04-15-2025 Miscellaneous Notes Formattin g of this note is different from the original. [facility] Ambulatory Pharmacy Anticoagulation Clinic Anticoagulation Episode Summary Anticoagulation Care Providers Provider Role Specialty Phone number Guanakito Reno MD [facility] [phone] Cal Mitchell is a 79 year old [...] Pharmacy Anticoagulation Clinic [facility] Pager: [phone]. documented in this encounter [facility] 04-14-2025 Telephone encount er Note Gustavo calls back and notified of provider recommendation below. Voices understanding. Leidy Malone RN [facility] 04-14-2025 Miscellaneous Notes Formattin g of this note might be different from the original. Gustavo calls back and notified of provider recommendation below. Voices understanding. Leidy Malone, RN Phoned Gustavo left message to return [...] him? Please advise documented in this encounter [facility] 04-14-2025 Telephone encount er Note Phoned Gustavo left message to return call and ask to speak to a nurse. [facility] 04-14-2025 Telephone encount er Note yes [facility] 04-14-2025 Telephone encount er Note Patient son in law Gustavo calling he has been giving the patient Tylenol 500 mg two tablets twice daily since his fracture right shoulder at almost the end of February. He is asking if it is alright that they are still giving it to him? Please advise [facility] 04-08-2025 Telephone encount er Note The following approved medication requests have been transmitted electronically. Requested Prescriptions Pending Prescriptions Disp Refills warfarin (COUMADIN) 5 mg tablet 90 tablet 3 Sig: Take 1 tablet by mouth once daily. warfarin (COUMADIN) 5 mg tablet 30 tablet 0 Sig: Take 1 tablet by mouth once daily. Carolina Landeros APRN.CNP [facility] 04-08-2025 Miscellaneous Notes Formattin g of this [...] 2025 2:33 PM documented in this encounter [facility] 04-08-2025 Telephone encount er Note Prescription Refill [...] Meyer LPN April 08, 2025 2:38 PM [facility] 04-08-2025 Miscellaneous Notes Formattin g of this [...] 2025 2:38 PM documented in this encounter [facility] 04-08-2025 Telephone encount er Note Prescription Refill [...] Meyer LPN April 08, 2025 2:33 PM [facility] 04-08-2025 Evaluation note Diagnosis Hypertensive kidney disease with stage 3 chronic kidney disease, unspecified whether stage 3a or 3b CKD (HCC) Type 2 diabetes mellitus with stage 3 chronic kidney disease, without long-term current use of insulin, unspecified whether stage 3a or 3b CKD (HCC) Chronic renal disease, stage IV (HCC) Chronic kidney disease, Stage IV (severe) documented in this encounter [facility]06-13-2025 Telephone encounter Note* Telephone Encounter - Niels Rodriges RN - 03/28/2025 1:04 PM EDT Faxed recent ov notes to [facility] per daughter, January request. . January reports she talked to [facility] about patient going to live there and [facility] instructed her to have pcp office send an H & P to them for review. [facility]06-13-2025 Miscellaneous Notes* Telephone Encounter - Niels Rodrgies RN - 03/28/2025 1:04 PM EDT Faxed recent ov notes to [facility] per daughter, January request. . January reports she talked to [facility] about patient going to live there and [facility] instructed her to have pcp office send an H & P to them for review. [facility] Telephone encounter Note * Telephone Encounter - Alejandro Molina RPh - 03/24/2025 10:57 AM EDT [facility] Ambulatory Pharmacy Anticoagulation Clinic Anticoagulation Episode Summary Anticoagulation Care Providers Provider Role Specialty Phone number Guanakito Reno MD [facility] [phone] Cal Mitchell is a 79 year old [...] instructed to call [facility] at [phone] with any questionsor concerns. Alejandro Molina RPh Clinical Pharmacist, Pharmacy Anticoagulation Clinic Pharmacy Antico[facility] Pager: [phone] [facility]06-09-2025 Miscellaneous Notes* Telephone Encounter - Alejandro Molina RPh - 03/24/2025 10:57 AM EDT [facility] Ambulatory Pharmacy Anticoagulation Clinic Anticoagulation Episode Summary Anticoagulation Care Providers Provider Role Specialty Phone number Guanakito Reno MD [facility] Medicine [phone] Cal Mitchell is a 79 year old [...] instructed to call [facility] at [phone] with any questionsor concerns. Alejandro Molina RPh Clinical Pharmacist, Pharmacy Anticoagulation Clinic [facility] Pager: [phone] documented [facility] Evaluation note* Diagnosis Onset Date Resolution Status Admit Date Closed fracture of right pro ximal humerus acute March 07, 2025 1 2:49pm [facility] Work Phone: 1(861) 574-780105-23-2025 Evaluation note* Diagnosis Onset Date Resolution Status Admit Date Closed fracture of right proximal humerus acute March 07, 2025 12:49pm Closed fracture of right proximal humerus acute May 02, 2025 10:11am [facility] Work Phone: 1(156) 994-204605-22-2025 NoteHNO ID: [id number] Author: CAROLINA LANDEROS APRN.[employer] Service: ? Author Type: Nurse Practitioner Type: [...] and 9-10/10 with movement. - Currently taking [place] for pain management. - Denies pain elsewhere [...] 250.00. Insulin: No Lancets (ONE TOUCH DELICA) [facility] lancets Test blood sugar(s) one time daily. [...] in a sl (more content not included)... [facility]05-08-2025 Telephone encounter Note* Telephone Encounter - Jimmy Carrizales, [facility] - 02/20/2025 8:59 AM EDT [facility] Ambulatory Pharmacy Anticoagulation Clinic Anticoagulation Episode Summary Anticoagulation Care Providers Provider Role Specialty Phone number Guanakito Reno MD [facility] [phone] Cal Mitchell is a 79 year old [...] ALLERGIES No Known Allergies Indication for Warfarin: [facility] (current) use of anticoagulants Paroxysmal atrial fibrillation [...] Pharmacy Anticoagulation Clinic Pharmacy An[facility] Clinic Pager: [phone]. [facility]05-08-2025 Miscellaneous Notes* Telephone Encounter - Jimmy Carrizales RPh - 02/20/2025 8:59 AM EDT [facility] Ambulatory Pharmacy Anticoagulation Clinic Anticoagulation Episode Summary Anticoagulation Care Providers Provider Role Specialty Phone number Guanakito Reno MD [facility] [phone] Cal Mitchell is a 79 year old [...] ALLERGIES No Known Allergies Indication for Warfarin: [facility] (current) use of anticoagulants Paroxysmal atrial fibrillation [...] any doses of warfarin. Jimmy Carrizales [facility] Clinical Pharmacist, Pharmacy Anticoagulation Clinic Pharmacy An[facility] Pager: [phone]. [facility] Telephone encounter Note * Telephone Encounter - Kamran Ayon RPh - 01/31/2025 12:43 PM EDT [facility] Ambulatory Pharmacy Anticoagulation Clinic Anticoagulation Episode Summary Anticoagulation Care Providers Provider Role Specialty Phone number Guanakito Reno MD [facility] Medicine [phone] Cal Mitchell is a 79 year old [...] ALLERGIES No Known Allergies Indication for Warfarin: 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 Paroxysmal atrial fibrillation [...] Pharmacy Anticoagulation Clinic Pharmacy Antico[facility] Clinic Pager: [phone]. [facility]04-18-2025 Miscellaneous Notes* Telephone Encounter - Kamran Ayon RPh - 01/31/2025 12:43 PM EDT [facility] Ambulatory Pharmacy Anticoagulation Clinic Anticoagulation Episode Summary Anticoagulation Care Providers Provider Role Specialty Phone number Guanakito Reno MD [facility] [phone] Cal Mitchell is a 79 year old [...] ALLERGIES No Known Allergies Indication for Warfarin: 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 Paroxysmal atrial fibrillation [...] Pharmacy Anticoagulation Clinic Pharmacy An[facility] Pager: [phone]. [facility] Progress note* Result Encounter Note - Carolina [...] levels, magnesium, and B12 are all normal. [facility]04-10-2025 Miscellaneous Notes* Result Encounter Note - Carolina [...] B12 are all normal. documented in [facility]25 NoteHNO ID: [id number] Author: GEOVANNA HINDS MA Service: ? Author Type: Secretarial Teacher Type: Progress Notes Filed: 01/21/2025 17:08 Note [...] Geovanna Hinds MA January 21, 2025 5:08 [facility]04-08-2025 History of Present illness Narrative* Geovanna [...] assessed by LIP pre and post procedure Geoavnna Hinds MA January 21, 2025 5:08 PM [...] taking lisinopril Monitors bp at home: Yes. [place] checks it, ok there Denies side effects: [...] No oropharyngeal exudate. Eyes: Comments: Conjunctiva gray. [place] and itchy Cardiovascular: Rate and Rhythm: Normal [...] MG TABLET - COMPREHENSIVE METABOLIC PANEL 12. [facility] (current) use of anticoagulants - ICD9: V58.61, [...] \\ Carolina Landeros APRN.CNP documented in this encounter[facility] Note* Addendum Note - Carolina Landeros APRN.CNP - 01/21/2025 4:54 PM EDTAddended by: CAROLINA LANDEROS on: 01/21/2025 04:54 PM Modules accepted: Orders [facility]04-08-2025 Miscellaneous Notes* Addendum Note - Carolina Landeros APRN.CNP - 01/21/2025 4:54 PM EDTAddended by: CAROLINA LANDEROS on: 01/21/2025 04:54 PM Modules accepted: Orders * Addendum Note - Geovanna Hinds MA - 01/21/2025 4:33 PM EDTAddended by: GEOVANNA HINDS on: 01/21/2025 04:33 PM Modules accepted: Orders documented in this encounter[facility] Note* Addendum Note - Geovanna Hinds MA - 01/21/2025 4:33 PM EDTAddended by: GEOVANNA HINDS on: 01/21/2025 04:33 PM Modules accepted: Orders [facility]04-08-2025 Instructions* Patient Instructions* Carolina Landeros APRN.CNP - [...] up in 6 months documented in this encounter[facility]25 NoteHNO ID: [id number] Author: CAROLINA LANDEROS APRN.CNP Service: ? Author [...] taking lisinopril Monitors bp at home: Yes. [place] checks it, ok there Denies side effects: [...] pain,every 5 min x3 blood sugar diagnostic (PublishThis ULTRA TEST) test strip Test blood sugar(s) one times daily. Dx: 250.00. Insulin: No Lancets (ONE TOUCH DELICA) [facility] lancets Test blood sugar(s) one time daily. [...] Drug use: No EXAM: (more content not included)...[facility]03-26-2025 Miscellaneous Notes* Telephone Encounter - Josselyn Barrow [...] 08, 2025 2:53 PM documented in [facility] encounter[facility] Telephone encounter Note * Telephone Encounter - [...] Barrow LPN January 08, 2025 2:53 PM [facility]03-26-2025 Telephone encounter Note* Telephone Encounter - Ruthie Cuevas RPh - 01/08/2025 8:51 AM EDT [facility] Ambulatory Pharmacy Anticoagulation Clinic Anticoagulation Episode Summary Anticoagulation Care Providers Provider Role Specialty Phone number Guanakito Reno MD [facility] [phone] Cal Mitchell is a 79 year old [...] ALLERGIES No Known Allergies 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 [facility]03-26-2025 Miscellaneous Notes* Telephone Encounter - Ruthie Cuevas RPh - 01/08/2025 8:51 AM EDT [facility] Ambulatory Pharmacy Anticoagulation Clinic Anticoagulation Episode Summary Anticoagulation Care Providers Provider Role Specialty Phone number Guanakito Reno MD [facility] [phone] Cal Mitchell is a 79 year old [...] ALLERGIES No Known Allergies Indication for Warfarin: [facility] (current) use of anticoagulants Paroxysmal atrial fibrillation [...] Pharmacy Anticoagulation Clinic Pharmacy Anticoagulation Clinic Pager: [phone]. documented in [facility] encounter[facility] Evaluation note* Diagnosis Hypertensive kidney disease with stage 3 chronic kidney disease, unspecified whether stage 3a or 3b CKD (HCC) documented in this encounter [facility]03-17-2025 Telephone encounter Note* Telephone Encounter - Octavio JansenMove In HistoryRuben Granados - 12/30/2024 9:15 AM EDT [facility] called regarding INR result for patient. Result has been addressed below, no further action needed. Ruben Cunningham Perfumer (insurance salesperson) Pharmacy Anticoagulation Clinic [facility]03-17-2025 Miscellaneous Notes* Telephone Encounter - Octavio JansenMove In HistoryRuben Granados - 12/30/2024 9:15 AM EDT [facility] called regarding INR result for patient. Result has been addressed below, no further action needed. Ruben Cunningham Perfumer (insurance salesperson) Pharmacy Anticoagulation Clinic * Telephone Encounter - Twin Cole [facility] - 12/30/2024 9:12 AM EDT [facility] Ambulatory Pharmacy Anticoagulation Clinic Anticoagulation Episode Summary Anticoagulation Care Providers Provider Role Specialty Phone number Guanakito Reno MD [facility] [phone] Cal Mitchell is a 79 year old [...] Pharmacy Anticoagulation Clinic Pharmacy Anticoagulation Clinic Pager: [phone]. documented in this encounter[facility] Telephone encounter Note * Telephone Encounter - Twin Cole RPh - 12/30/2024 9:12 AM EDT [facility] Ambulatory Pharmacy Anticoagulation Clinic Anticoagulation Episode Summary Anticoagulation Care Providers Provider Role Specialty Phone number Guanakito Reno MD [facility] [phone] Cal Mitchell is a 79 year old [...] Pharmacy Anticoagulation Clinic Pharmacy Anticoagulation Clinic Pager: [phone]. [facility]02-26-2025 Telephone encounter Note* Telephone Encounter - Jimmy Carrizales RP - 12/11/2024 9:43 AM EST [facility] Ambulatory Pharmacy Anticoagulation Clinic Anticoagulation Episode Summary Anticoagulation Care Providers Provider Role Specialty Phone number Guanakito Reno MD [facility] Medicine [phone] Cal Mitchell is a 79 year old [...] ALLERGIES No Known Allergies Indication for Warfarin: [facility] (current) use of anticoagulants Paroxysmal atrial fibrillation [...] Pharmacy Anticoagulation Clinic Pharmacy Anticoagulation Clinic Pager: [phone]. [facility]02-26-2025 Miscellaneous Notes* Telephone Encounter - Jimmy Carrizales RPh - 12/11/2024 9:43 AM EST [facility] [facility] Ambulatory Pharmacy Anticoagulation Clinic Anticoagulation Episode Summary Anticoagulation Care Providers Provider Role Specialty Phone number Guanakito Reno MD [facility] Medicine [phone] Cal Mitchell is a 79 year old [...] ALLERGIES No Known Allergies Indication for Warfarin: [facility] (current) use of anticoagulants Paroxysmal atrial fibrillation [...] any doses of warfarin. Jimmy Carrizales [facility] Clinical Pharmacist, Pharmacy Anticoagulation Clinic Pharmacy Anticoagulation Clinic Pager: [phone]. documented in this encounterSelect Medical [facility] Telephone encounter Note * Telephone Encounter - Twni Cole [facility] - 11/26/2024 5:26 PM EST [facility] Ambulatory Pharmacy Anticoagulation Clinic Anticoagulation Episode Summary Anticoagulation Care Providers Provider Role Specialty Phone number Guanakito Reno MD [facility] [phone] Cal Mitchell is a 79 year old [...] Pharmacy Anticoagulation Clinic Pharmacy Anticoagulation Clinic Pager: [phone]. [facility]02-11-2025 Miscellaneous Notes* Telephone Encounter - Twin Cole RPh - 11/26/2024 5:26 PM EST [facility] Ambulatory Pharmacy Anticoagulation Clinic Anticoagulation Episode Summary Anticoagulation Care Providers Provider Role Specialty Phone number Guanakito Reno MD [facility] Medicine [phone] Cal Mitchell is a 79 year old [...] Pharmacy Anticoagulation Clinic Pharmacy Anticoagulation Clinic Pager: [phone]. documented in this encounterSelect Medical [facility] Telephone encounter Note * Telephone Encounter - Alejandro Molina RPh - 10/28/2024 5:06 PM EST [facility] Ambulatory Pharmacy Anticoagulation Clinic Anticoagulation Episode Summary Anticoagulation Care Providers Provider Role Specialty Phone number Guanakito Reno MD [facility] [phone] Cal Mitchell is a 79 year old [...] instructed to call Pharmaceutical Antico[facility] Clinic at [phone] with any questionsor concerns. Alejandro Molina RPh Clinical Pharmacist, Pharmacy Anticoagulation Clinic Pharmacy Anticoagulation Clinic Pager: [phone] [facility]01-13-2025 Miscellaneous Notes* Telephone Encounter - Alejandro Molina RPh - 10/28/2024 5:06 PM EST [facility] Ambulatory Pharmacy Anticoagulation Clinic Anticoagulation Episode Summary Anticoagulation Care Providers Provider Role Specialty Phone number Guanakito Reno MD [facility] [phone] Cal Mitchell is a 79 year old [...] instructed to call Pharmaceutical [facility]tico[facility] at [phone] with any questionsor concerns. Alejandro Molina RPh Clinical Pharmacist, Pharmacy Anticoagulation Clinic Pharmacy Anticoagulation Clinic Pager: [phone] documented in this encounterSelect Medical [facility] Telephone encounter Note * Telephone Encounter - Ashley De Dios RN - 10/21/2024 2:58 PM EST Pt ALEC Chen called and is notified of providers message. He voices understanding. Ashley De Dios RN [facility]01-06-2025 Miscellaneous Notes* Telephone Encounter - Ashley De [...] Please call and advise. documented in this encounterSelect Medical [facility]25 Telephone encounter Note * Telephone Encounter - Guanakito Reno MD - 10/21/2024 2:25 PM EST agree [facility]01-06-2025 Telephone encounter Note* Telephone Encounter - Ashley [...] to the Pt. Ashley De Dios RN [facility]01-06-2025 Telephone encounter Note* Telephone Encounter - Guanakito Reno MD - 10/21/2024 1:55 PM EST Can try mucinex otc. Call if symptoms worsen at all or if not better in one to two weeks [facility]01-06-2025 Telephone encounter Note* Telephone Encounter - Ashley [...] him for Covid. Please call and advise. [facility]12-17-2024 Telephone encounter Note* Telephone Encounter - Twin Cole [facility] - 10/01/2024 9:37 AM EST [facility] Ambulatory Pharmacy Anticoagulation Clinic Anticoagulation Episode Summary Anticoagulation Care Providers Provider Role Specialty Phone number Guanakito Reno MD [facility] [phone] Cal Mitchell is a 79 year old [...] Pharmacy Anticoagulation Clinic Pharmacy Anticoagulation Clinic Pager: [phone]. [facility]12-17-2024 Miscellaneous Notes* Telephone Encounter - Twin Cole RPh - 10/01/2024 9:37 AM EST [facility] Ambulatory Pharmacy Anticoagulation Clinic Anticoagulation Episode Summary Anticoagulation Care Providers Provider Role Specialty Phone number Guanakito Reno MD [facility] [phone] Cal Mitchell is a 79 year old [...] Pharmacy Anticoagulation Clinic Pharmacy Anticoagulation Clinic Pager: [phone]. documented in this encounterSelect Medical [facility]-2024 Telephone encounter Note * Telephone Encounter - Alejandro Molina RPh - 08/26/2024 6:35 AM EST [facility] Ambulatory Pharmacy Anticoagulation Clinic Anticoagulation Episode Summary Anticoagulation Care Providers Provider Role Specialty Phone number Guanakito Reno MD [facility] Medicine [phone] Cal Mitchell is a 79 year old [...] warfarin instructions: 5 mg every day Sent Yippy message Advised patient to continue current weekly dose as noted above Next INR check due on 09/09/2024 Alejandro Molina RPh Clinical Pharmacist, Pharmacy Anticoagulation Clinic Pharmacy Anticoagulation Clinic Pager: [phone]. [facility]11-11-2024 Miscellaneous Notes* Telephone Encounter - Alejandro Molina RPh - 08/26/2024 6:35 AM EST [facility] Ambulatory Pharmacy Anticoagulation Clinic Anticoagulation Episode Summary Anticoagulation Care Providers Provider Role Specialty Phone number Guanakito Reno MD [facility] Medicine [phone] Cal Mitchell is a 79 year old [...] warfarin instructions: 5 mg every day Sent Yippy message Advised patient to continue current weekly dose as noted above Next INR check due on 09/09/2024 Alejandro Molina RPh Clinical Pharmacist, Pharmacy Anticoagulation Clinic Pharmacy Anticoagulation Clinic Pager: [phone]. documented in this encounterSelect Medical [facility]11-04-2024 NoteHNO ID: [id number] Author: MELANIA GALINDO RN Service: ? Author [...] date of . Patient Attributed To: [facility] Payer: [facility] Action Taken: Data submitted to Payer Contact made with patient: No, Left message BENJIE Schreiber RNWilson Health11-04-2024 History of Present illness Narrative* Melania Galindo [...] of . Patient Attributed To: QAE Payer: [facility] Action Taken: Data submitted to Payer Contact made with patient: No, Left message BENJIE Schreiber RN documented in this encounterSelect Medical [facility]11-04-2024 NotePatient Outreach ([facility]) ACL MITCHELL ([id number]) 1945 M Date Time Provider Department 08/19/24 MELANIA GALINDO [facility] [place] your visit today, we recorded the following information about you: Melania Galindo RN 08/19/2024 12:55 PM Signed ACM LUIS RN Reason for review or outreach: Medication Adherence Review Details: Cholesterol FYI/REQUESTED ACTION: Summary / Findings: Atorvastatin was due for refill on/before 08.09.24. Sent Yippy reminder 08.15.24- not read Called patient Patient identified by name and date of . Patient Attributed To: QAE Payer: [facility] Action Taken: Data submitted to Payer Contact [...] Insulin: No - Lancets (ONE TOUCH DELICA) [facility] lancets Test blood sugar(s) one time daily. 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 Cannot tell this Nurse what he is taking and not takiing at this time. Carolin Cantu LPN August 06, 2024 1:29 PM [facility]10-22-2024 Nurse Note* aCrolin Cantu LPN - 08/06/2024 1:28 PM EDT Patient not a good historian of medications. Cannot tell this Nurse what he is taking and not takiing at this time. Carolin Cantu LPN August 06, 2024 1:29 PM documented in this encounterSelect Medical [facility]10-22-2024 History of Present illness Narrative* Laura Iraheta MD - 08/06/2024 1:25 PM EDT Images from the original note were not included. Heart , Vascular and Thoracic Issue DEPARTMENT OF VASCULAR SURGERY OUTPATIENT VISIT DATE [...] airway obstruction, not elsewhere classified 10/2004 Diabetes ([facility]) Diverticulosis of colon (without mention of hemorrhage) [...] 250.00. Insulin: No Lancets (ONE TOUCH DELICA) [facility] lancets Test blood sugar(s) one time daily. Dx: 250.00. Insulin: No ALLERGIES: ALLERGIES No Known Allergies REVIEW OF SYSTEM: Constitutional: No weight loss, malaise or fevers. Respiratory: Negative for SOB Cardiovascular: Negative for chest pain or recent [place] Gatrointestinal: Negative for abdominal discomfort Genitourinary: Negative [...] 2024 TIME: 4:41 PM documented in this encounterSelect Medical [facility]10-17-2024 Telephone encounter Note * Telephone Encounter - Josselyn Mayer APRN.CNP - 08/01/2024 9:56 AM EDT I spoke with Gustavo and communicated recommendations of medical therapy. He reports patient also expressed wanting to continue without any further intervention. Patient and family agreeable to plan. Josselyn Mayer APRN.CNP [facility]10-17-2024 Miscellaneous Notes* Telephone Encounter - Josselyn Mayer APRN.CNP - 08/01/2024 9:56 AM EDT I spoke with Gustavo and communicated recommendations of medical therapy. He reports patient also expressed wanting to continue without any further intervention. Patient and family agreeable to plan. Josselyn Mayer APRN.CNP * Telephone Encounter - Chely Nicolas RN - 07/31/2024 3:53 PM EDT Gustavo calls requesting a return call at [phone]. Chely Nicolas RN * Telephone Encounter - Josselyn Mayer APRN.CNP - 07/30/2024 10:34 AM EDT Attempted to contact patient and his family to update him on the treatment plan. Left voicemail requesting phone call back. Josselyn Mayer APRN.CNP documented in this encounterSelect Medical [facility]10-16-2024 Telephone encounter Note * Telephone Encounter - Chely Nicolas RN - 07/31/2024 3:53 PM EDT Gustavo calls requesting a return call at [phone]. Chely Nicolas RN [facility]10-15-2024 History of Present illness Narrative* Josselyn Mayer APRN.CNP - 07/30/2024 10:45 AM EDT MULTI DISCIPLINARY HIGH RISK AVR CARDIAC TEAM Members present: Dr. Malcolm, Dr. Mondragon, Dr. Norman, Dr. Escalera, Gian Boyd APRN, CNP, Frank Brito CNP, ALEJANDRA Ma., [...] Josselyn Mayer APRN.CNP 07/30/2024 documented in this encounterSelect Medical [facility]10-15-2024 Telephone encounter Note * Telephone Encounter - Josselyn Mayer APRN.CNP - 07/30/2024 10:34 AM EDT Attempted to contact patient and his family to update him on the treatment plan. Left voicemail requesting phone call back. Josselyn Mayer APRN.CNP [facility]10-11-2024 Telephone encounter Note* Telephone Encounter - Kamran [...] to test INR. Kamran Ayon PharmD, BCPS [facility]10-11-2024 Miscellaneous Notes* Telephone Encounter - Kamran Ayon RPh - 07/26/2024 4:22 PM EDT Images from the original note were not included. Called and left voice message for daughter January asking her to return call to Pharmacy Anticoagulation Clinic to discuss if Lovenox was started for patient. Josselyn Mayer APRN.KOURTNEY Nicolas Chely, RNYester (2:01 PM) I sent 8 syringes [...] * Telephone Encounter - Jimmy Carrizales [facility] - 07/25/2024 11:45 AM EDT Left voice message asking patient at [phone] (home) or daughter January to call the Anticoagulation Clinic at [phone] re: patient recenly off warfarin for heart cath on 07/23/24. Patient was prescribed Lovenox 100 mg sq Once daily by cardiology. Next Action for Anti coag Management: TM Remote Jimmy Carrizales PharmD., CACP documented in this encounterSelect Medical [facility]10-10-2024 Telephone encounter Note * Telephone Encounter - Jimmy Carrizales [facility] - 07/25/2024 11:45 AM EDT Left voice message asking patient at [phone] (home) or daughter January to call the Anticoagulation Clinic at [phone] re: patient recenly off warfarin for heart cath on 07/23/24. Patient was prescribed Lovenox 100 mg sq Once daily by cardiology. Next Action for Anti coag Management: TM Remote Jimmy Carrizales PharmD., CACP [facility]10-08-2024 History of Present illness Narrative* Victoria Marks [...] PATIENT PRESENTS WITH AN IMPLANTABLE OR ATTACHED PARTS CHASER: No ALLERGIES: Reviewed and unchanged CONTRAST ALLERGY: [...] 2024 TIME: 9:13 AM documented in this encounterSelect Medical [facility]09-30-2024 Telephone encounter Note * Telephone Encounter - Josselyn Barrow LPN - 07/15/2024 3:19 PM EDT Notified Gustavo. [facility]09-30-2024 Miscellaneous Notes* Telephone Encounter - Josselyn Barrow [...] proceeding. Teresa Alexis, RN documented in this encounterSelect Medical [facility]09-30-2024 Telephone encounter Note * Telephone Encounter - Magdalena Laird LPN - 07/15/2024 3:15 PM EDT Son notified of results and provider message. Magdalena Laird LPN [facility]09-30-2024 Miscellaneous Notes* Telephone Encounter - Magdalena Laird [...] does off of meds. documented in this encounterSelect Medical [facility]09-30-2024 Telephone encounter Note * Telephone Encounter - Guanakito Reno MD - 07/15/2024 2:40 PM EDT Agree. As long as he is aware. [facility]09-30-2024 Telephone encounter Note* Telephone Encounter - Teresa [...] like PCP recommendationbefore proceeding. Teresa Alexis, BENJIE [facility]09-30-2024 Telephone encounter Note* Telephone Encounter - Carolina Alba MA - 07/15/2024 2:14 PM EDT Message left for return call. Carolina Alba MA [facility]09-30-2024 Telephone encounter Note* Telephone Encounter - Guanakito Reno MD - 07/15/2024 1:04 PM EDT Kidney function and anemia are stable. See nephrology as we had recommended. Sugars are overall notbad. Hold on amaryl. Call sugars in two weeks to see how he does off of meds. [facility]09-30-2024 History of Present illness Narrative* Guanakito Reno MD - 07/15/2024 8:03 AM EDT Apparently second visit created in error. documented in this encounterSelect Medical [facility]09-27-2024 Telephone encounter Note * Telephone Encounter - Guanakito Reno MD - 07/12/2024 12:49 PM EDT Noted. Thank you [facility]09-27-2024 Miscellaneous Notes* Telephone Encounter - Guanakito Reno MD - 07/12/2024 12:49 PM EDT Noted. Thank you * Telephone Encounter - Meera Art - 07/12/2024 12:34 PM EDT Attempted to find sooner apt time for patients nephrology apt, no sooner times within [facility] facilities that are faster than patients [facility] apt. documented in this encounterSelect Medical [facility]09-27-2024 Telephone encounter Note * Telephone Encounter - Art Estes - 07/12/2024 12:34 PM EDT Attempted to find sooner apt time for patients nephrology apt, no sooner times within [facility] facilities that are faster than patients [facility] apt. [facility]09-27-2024 History of Present illness Narrative* Guanakito Reno MD - 07/12/2024 11:22 AM EDT Patient presents with: Follow Up HPI: Patient presents today for office visit for follow up. We had referred him to nephrology in March for ckd and anemia of ckd. Has stopped HCTZ. Actos. Melatonin. Still with pitting edema. Denies chest pain. No new or worsening shortness of breath. Currently wearing [employer] heart monitor. Placed yesterday. Follows with Cardiology. [...] 250.00. Insulin: No Lancets (ONE TOUCH DELICA) [facility] lancets Test blood sugar(s) one time daily. [...] ICD10: G30.9, F01.50, F02.80 - stable. 10. [facility] (current) use of anticoagulants - ICD9: V58.61, ICD10: Z79.01 Stable. Guanakito Reno MD documented in this encounterSelect Medical [facility]09-[facility]-2024 History of Present illness Narrative* Pam Reddy MD - 07/10/2024 3:07 PM EDT Images from the original note were not included. Pam Reddy MD Interventional Cardiology [address] [place], [place] [id number] Chief Complaint Patient presents with: Aortic Stenosis: [...] with significant dementia. Patient follow-up at the [place] office 6 months ago he was completely [...] 8 hours as needed. blood sugar diagnostic (DatalotTOUCH ULTRA TEST) test strip Test blood sugar(s) one times daily. Dx: 250.00. Insulin: No 150 Strip 3 Lancets (ONE TOUCH DELICA) [facility] lancets Test blood sugar(s) one time daily. [...] CTA CHEST (GATED) WO/W IVCON - CARDIAC NUISANCE WILDLIFE TRAPPER ORDER - EXTENDED WEAR NURSING SERVICES MANAGER PATCH - COMPLETE BLOOD COUNT - BASIC [...] made to correct any errors. * Josselyn Mayre, CHILDREN'S AIDE.ENGINEER SOILS - 07/10/2024 9:39 AM EDT Procedure Type: [...] 10, 2024 TIME: 8:06 AM PAGER/CONTACT #: [phone] documented in this encounterSelect Medical [facility]09-[facility]-2024 Nurse Note* Judy Magana Cafeteria Manager - 07/10/2024 10:00 AM EDT Applied 14 day extended wear EKG patch. Pt verbalized understanding of monitor use / diary. [facility]09-25-2024 Nurse Note* Judy Magana Cafeteria Manager - 07/10/2024 10:00 AM EDT Applied 14 day extended wear EKG patch. Pt verbalized understanding of monitor use / diary. documented in this encounterSelect Medical [facility]09-25-2024 Instructions* Patient Instructions* Josselyn Mayer APRN.CNP - [...] process is complete. The content on the [employer] website is not intended nor recommended as a substitute for medical advice, diagnosis, or treatment. Always seek the advice of your own physician or other qualified healthcare professional regarding any medical questions or conditions.. 2016 [employer]. All rights reserved. Topic 99054 Version 5.0 documented in this encounterSelect Medical [facility]09-[facility]-2024 History of Present illness Narrative* Cal Mondragon MD - 07/10/2024 8:37 AM EDT PRIMARY CARE PHYSICIAN: Guanakito Reno [address] [place] [address] Subjective Chief Complaint Patient presents with: Aortic [...] 8 hours as needed. blood sugar diagnostic (DataSphereUCH ULTRA TEST) test strip Test blood sugar(s) one times daily. Dx: 250.00. Insulin: No 150 Strip 3 Lancets (ONE TOUCH DELICA) [facility] lancets Test blood sugar(s) one time daily. [...] also refer to vascular surgery and a gun mechanic for further evaluation. Family will discuss how [...] 10, 2024 TIME: 8:13 AM PAGER/CONTACT #: [phone] documented in this encounterSelect Medical [facility]09-[facility]-2024 Telephone encounter Note * Telephone Encounter - Annamarie Garcia [facility] - 07/05/2024 9:43 AM EDT [facility] Ambulatory Pharmacy Anticoagulation Clinic Anticoagulation Episode Summary Anticoagulation Care Providers Provider Role Specialty Phone number Guanakito Reno MD [facility] [phone] Cal Mitchell is a 79 year old [...] ALLERGIES No Known Allergies Indication for Warfarin: [facility] (current) use of anticoagulants Paroxysmal atrial fibrillation (hcc) Anticoagulation Episode Summary Current INR goal: 2.0-3.0 Assessment: INR result of 2.2 is therapeutic Plan: Current Warfarin Dosing As of 07/05/2024 Full warfarin instructions: 5 mg every day Left voice message And sent Gelato Fiascohart message Advised patient to continue current weekly dose as noted above Next home INR check scheduled on 07/18/2024 Annamarie Garcia RPh Clinical Pharmacist, Pharmacy Anticoagulation Clinic Pharmacy Anticoagulation Clinic Pager: [phone]. [facility]09-20-2024 Miscellaneous Notes* Telephone Encounter - Annamarie Garcia RPh - 07/05/2024 9:43 AM EDT [facility] Ambulatory Pharmacy Anticoagulation Clinic Anticoagulation Episode Summary Anticoagulation Care Providers Provider Role Specialty Phone number Guanakito Reno MD [facility] [phone] Cal Mitchell is a 79 year old [...] ALLERGIES No Known Allergies Indication for Warfarin: [facility] (current) use of anticoagulants Paroxysmal atrial fibrillation (hcc) Anticoagulation Episode Summary Current INR goal: 2.0-3.0 Assessment: INR result of 2.2 is therapeutic Plan: Current Warfarin Dosing As of 07/05/2024 Full warfarin instructions: 5 mg every day Left voice message And sent Gelato Fiascohart message Advised patient to continue current weekly dose as noted above Next home INR check scheduled on 07/18/2024 Annamarie Garcia [facility] Clinical Pharmacist, Pharmacy Anticoagulation Clinic Pharmacy Anticoagulation Clinic Pager: [phone]. documented in this encounterSelect Medical [facility] [facility] Telephone encounter Note * Telephone Encounter - Jimmy Carrizales [facility] - 06/18/2024 8:39 AM EDT [facility] Ambulatory Pharmacy Anticoagulation Clinic Anticoagulation Episode Summary Anticoagulation Care Providers Provider Role Specialty Phone number Guanakito Reno MD [facility] [phone] Cal Mitchell is a 78 year old [...] ALLERGIES No Known Allergies Indication for Warfarin: [facility] (current) use of anticoagulants Paroxysmal atrial fibrillation [...] INR check scheduled on 07/02/2024 Jimmy Carrizales [facility] Clinical Pharmacist, Pharmacy Anticoagulation Clinic Pharmacy Anticoagulation Clinic Pager: [phone]. [facility]09-03-2024 Miscellaneous Notes* Telephone Encounter - Jimmy Carrizales RPh - 06/18/2024 8:39 AM EDT [facility] Ambulatory Pharmacy Anticoagulation Clinic Anticoagulation Episode Summary Anticoagulation Care Providers Provider Role Specialty Phone number Guanakito Reno MD [facility] [phone] Cal Mitchell is a 78 year old [...] ALLERGIES No Known Allergies Indication for Warfarin: 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 Paroxysmal atrial fibrillation [...] Pharmacy Anticoagulation Clinic Pharmacy Anticoagulation Clinic Pager: [phone]. documented in this encounter[facility] Instructions* Patient Instructions* Carolina Landeros APRN.CNP - 06/06/2024 12:10 PM EDT 1) Stop Actos 2) Stop melatonin 3) Try to increase protein 4) Follow up in 1 months documented in this encounterSelect [facility] History of Present illness Narrative* Carolina Landeros [...] Comment: Skin tag removals - bilateral axillary 1/05: REMOVAL IMPACTED CERUMEN INSTRUMENTATION UNILAT 7-3-14: TEAEC [...] 250.00. Insulin: No Lancets (ONE TOUCH DELICA) [facility] lancets Test blood sugar(s) one time daily. [...] improvement. Carolina Landeros APRN.KOURTNEY documented in this encounterSelect [facility] Telephone encounter Note * Telephone Encounter - Josselyn Barrow LPN - 06/05/2024 4:53 PM EDT Attempted to reach daughter and her is already here with patient. [facility]08-21-2024 Miscellaneous Notes* Telephone Encounter - Josselyn Barrow [...] pt needs seen sooner? Please advise daughter January or son-in-law Gustavo. Thank you. * Telephone Encounter - Corrina Lennon APRN.CNP - 06/03/2024 7:42 PM EDT We should probably have him in so we can see his legs and check his blood pressure. Please help schedule. Can we also get him contact info for nephrology. If he is looking for carole, it would probably beDr. Bill? Corrina Lennon APRN.CNP documented in this encounterSelect [facility] Clinic [facility] Telephone encounter Note * Telephone Encounter - [...] can get him scheduled. Corrina Lennon APRN.CNP [facility]08-21-2024 History of Present illness Narrative* Valerie Connelly APRN.CNP - 06/05/2024 4:45 PM EDT This note was created using MicroJobriter. Subjective Cal Mitchell is a 78 year old male. 78 year old male with PMH HTN, hyperlipidemia, afib, PAD, CKD, DM presents for medical complaints. Acute onset of symptoms was over a week ago Patients daughter had sent in a [employer] message on 06/03/24. At that time she [...] history is provided by the patient. No heel sewer was used. Edema This is a new [...] 250.00. Insulin: No Lancets (ONE TOUCH DELICA) [facility] lancets Test blood sugar(s) one time daily. [...] change medicines related to chronic conditions. Reviewed [employer] messages where patient was requested to be seen in person by PCP Appt made for AM 06/06/24 Valerie Cnonelly APRN.CNP documented in this encounterSelect Medical [facility] Clinic [facility] Telephone encounter Note * Telephone Encounter - [...] daughter Elly or son-in-law Gustavo. Thank you. [facility]08-19-2024 Telephone encounter Note* Telephone Encounter - Corrina Lennon APRN.CNP - 06/03/2024 7:42 PM EDT We should probably have him in so we can see his legs and check his blood pressure. Please help schedule. Can we also get him contact info for nephrology. If he is looking for carole, it would probably beDrTitus Khan? Corrina Lennon APRN.CNP [facility]08-08-2024 Telephone encounter Note* Telephone Encounter - Chely Nicolas RN - 05/23/2024 9:49 AM EDT Images from the original note were not included. Gladys Bella31 minutes ago (9:17 AM) TR Good Morning. Pt is scheduled for Valve Clinic on 07/10/24 at 8:30 am per Josselyn. [facility]08-08-2024 Miscellaneous Notes* Telephone Encounter - Chely Nicolas RN - 05/23/2024 9:49 AM EDT Images from the original note were not included. Shayne Gladys Love31 minutes ago (9:17 AM) TR Good Morning. [...] included. Pam Reddy MD You; Josselyn Mayer, CHILDREN'S AIDE.CNP15 hours ago (4:42 PM) Let's see at the valve clinic kam * Telephone Encounter - Chely Nicolas RN - 05/20/2024 2:46 PM EDT ----- Message from Josselyn Mayer APRN.[employer] sent at 05/20/2024 2:28 PM EDT ----- Creatinine 2.3. Per chart review he was asymptomatic but had an episode of syncope. Do you want work up first or just valve clinic? Josselyn ----- Message ----- From: Pam Reddy MD Sent: 05/18/2024 8:44 AM EDT To: Chely Nicolas RN; Josselyn Mayer APRN.[employer] Aortic stenosis need to establish care at the valve clinic sle * Telephone Encounter - Chely Nicolas RN [...] to establish care at the valve clinic sle documented in this encounterSelect [facility] Clinic [facility] Telephone encounter Note * Telephone Encounter - Chely Nicolas RN - 05/23/2024 8:27 AM EDT Left message on voicemail requesting pt return call for test results and MD recommendations. Officephone number provided. Chely Nicolas RN [facility]08-08-2024 Telephone encounter Note* Telephone Encounter - Chely Nicolas RN - 05/23/2024 8:26 AM EDT Images from the original note were not included. Pam Reddy MD You; Josselyn Mayer APRN.CNP15 hours ago (4:42 PM) Let's see at the valve clinic kam [facility]08-06-2024 Telephone encounter Note* Telephone Encounter - Claritza Hardin - 05/21/2024 3:10 PM EDT Patient's son in law called in to confirm appointment with Dr. Reddy. Thanks Claritza Hardin [facility]08-06-2024 Miscellaneous Notes* Telephone Encounter - Wilfred June Sarah - 05/21/2024 3:10 PM EDT Patient's [...] you, Josselyn Mayer APRN.CNP documented in this encounterSelect Medical [facility] Clinic [facility]20[facility] Telephone encounter Note * Telephone Encounter - [...] to establish care at the valve clinic ketanik [facility]08-05-2024 Telephone encounter Note* Telephone Encounter - Josselyn [...] care with Nephrologists. Thank you, Josselyn Mayer APRN.[employer] [facility] Work Phone: [phone]) 206-365308-05-2024 Telephone encounter Note* Telephone Encounter - Chely Nicolas RN - 05/20/2024 9:59 AM EDT Left message on voicemail requesting pt return call for test results. Office phone number provided. Chely Nicolas RN [facility]08-05-2024 Telephone encounter Note* Telephone Encounter - Chely Nicolas RN - 05/20/2024 9:58 AM EDT ----- Message from Pam Reddy MD sent at 05/18/2024 8:44 AM EDT ----- Aortic stenosis need to establish care at the valve clinic kam [facility]08-02-2024 Telephone encounter Note* Telephone Encounter - Dorothy Joshua [facility] - 05/17/2024 9:22 AM EDT [facility] Ambulatory Pharmacy Anticoagulation Clinic Anticoagulation Episode Summary Anticoagulation Care Providers Provider Role Specialty Phone number Guanakito Reno MD [facility] [phone] Cal Mitchell is a 78 year old [...] ALLERGIES No Known Allergies Indication for Warfarin: [facility] (current) use of anticoagulants Paroxysmal atrial fibrillation (hcc) Anticoagulation Episode Summary Current INR goal: 2.0-3.0 Assessment: INR result of 2.8is therapeutic Plan: Current Warfarin Dosing As of 05/17/2024 Full warfarin instructions: 5 mg every day Sent Yippy message Advised patient to continue current weekly dose as noted above Next home INR check scheduled on 05/30/2024 Dorothy Joshua RPh Clinical Pharmacist, Pharmacy Anticoagulation Clinic Pharmacy Anticoagulation Clinic Pager: [phone]. [facility]08-02-2024 Miscellaneous Notes* Telephone Encounter - Dorothy Joshua RPh - 05/17/2024 9:22 AM EDT [facility] Ambulatory Pharmacy Anticoagulation Clinic Anticoagulation Episode Summary Anticoagulation Care Providers Provider Role Specialty Phone number Guanakito Reno MD [facility] [phone] Cal Mitchell is a 78 year old [...] ALLERGIES No Known Allergies Indication for Warfarin: [facility] (current) use of anticoagulants Paroxysmal atrial fibrillation (hcc) Anticoagulation Episode Summary Current INR goal: 2.0-3.0 Assessment: INR result of 2.8is therapeutic Plan: Current Warfarin Dosing As of 05/17/2024 Full warfarin instructions: 5 mg every day Sent Yippy message Advised patient to continue current weekly dose as noted above Next home INR check scheduled on 05/30/2024 Dorothy Joshua RPh Clinical Pharmacist, Pharmacy Anticoagulation Clinic Pharmacy Anticoagulation Clinic Pager: [phone]. documented in this encounterSelect Medical [facility] Clinic [facility] Instructions* Patient Instructions* Corrina Lennon APRN.CNP - 05/06/2024 6:38 PM EDT Continue to try to get the stool sample. Continue the same medication. Schedule with nephrology (kidney doctor). Recheck with Dr. Reno in 2 months. documented in this encounterSelect Medical Cleveland Clinic [facility] History of Present illness Narrative* Corrina Lennon [...] a fall. Was outside and grabbed the [id number]-hlca and shook it for a few seconds [...] 8 hours as needed. blood sugar diagnostic (DatalotTOUCH ULTRA TEST) test strip Test blood sugar(s) one times daily. Dx: 250.00. Insulin: No Lancets (ONE TOUCH DELICA) [facility] lancets Test blood sugar(s) one time daily. [...] as needed for worsening/no improvement. Corrina Lennon APRN.[employer] documented in this encounterSelect Medical [facility] Clinic [facility] History of Present illness Narrative* Jody Queen [...] PATIENT PRESENTS WITH AN IMPLANTABLE OR ATTACHED PARTS CHASER: No RADIOLOGY DEPARTMENT: Ultrasound PERIPHERAL IV DATA: Not applicable SIGNED BY: Jody Queen RDMS May 02, 2024 10:49 AM documented in this encounterSelect Medical [facility] Clinic [facility] Telephone encounter Note * Telephone Encounter - Stephany Graves MA - 04/29/2024 9:48 AM EDT Spoke with daughter. She stated she was suppose to call the local tax services specialist but didn't have the number and then forgot to call office to get it. Also she is not able to log into the [employer] account, states she forgot password. I have sent number for Dr. Khan to pt home along with [employer] number so she can get [employer] account fixed and call to set up his appt with tax services specialist. Pt needs refill of Lipitor sent to [facility]. Stephany Graves MA [facility]07-15-2024 Miscellaneous Notes* Telephone Encounter - Stephany Graves MA - 04/29/2024 9:48 AM EDT Spoke with daughter. She stated she was suppose to call the local tax services specialist but didn't have the number and then forgot to call office to get it. Also she is not able to log into the [employer] account, states she forgot password. I have sent number for Dr. Khan to pt home along with mychart number so she can get [employer] account fixed and call to set up his appt with tax services specialist. Pt needs refill of Lipitor sent to [...] nephrology? Was ordered previously. documented in this encounterSelect Medical [facility] Clinic [facility]2024 Telephone encounter Note * Telephone Encounter - Ruthie Cuevas [facility] - 04/24/2024 9:45 AM EDT [facility] Ambulatory Pharmacy Anticoagulation Clinic Anticoagulation Episode Summary Anticoagulation Care Providers Provider Role Specialty Phone number Guanakito Reno MD [facility] [phone] Cal Mitchell is a 78 year old [...] ALLERGIES No Known Allergies Indication for Warfarin: 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 Paroxysmal atrial fibrillation (hcc) Anticoagulation Episode Summary Current INR goal: 2.0-3.0 Assessment: INR result of 2.7 is therapeutic Plan: Current Warfarin Dosing As of 04/24/2024 Full warfarin instructions: 5 mg every day Sent Yippy message Advised patient to continue current weekly dose as noted above Next home INR check scheduled on 05/07/2024 Ruthie Cuevas RPh Clinical Pharmacist, Pharmacy Anticoagulation Clinic Pharmacy Anticoagulation Clinic Pager: [phone]. [facility]07-10-2024 Miscellaneous Notes* Telephone Encounter - Ruthie Cuevas RPh - 04/24/2024 9:45 AM EDT [facility] Ambulatory Pharmacy Anticoagulation Clinic Anticoagulation Episode Summary Anticoagulation Care Providers Provider Role Specialty Phone number Guanakito Reno MD [facility] [phone] Cal Mitchell is a 78 year old [...] ALLERGIES No Known Allergies Indication for Warfarin: [facility] (current) use of anticoagulants Paroxysmal atrial fibrillation (hcc) Anticoagulation Episode Summary Current INR goal: 2.0-3.0 Assessment: INR result of 2.7 is therapeutic Plan: Current Warfarin Dosing As of 04/24/2024 Full warfarin instructions: 5 mg every day Sent Yippy message Advised patient to continue current weekly dose as noted above Next home INR check scheduled on 05/07/2024 Ruthie Cuevas RPh Clinical Pharmacist, Pharmacy Anticoagulation Clinic Pharmacy Anticoagulation Clinic Pager: [phone]. documented in this encounterSelect [facility] Clinic [facility] Telephone encounter Note * Telephone Encounter - Geovanna Hinds MA - 04/19/2024 4:14 PM EDT Left message for patient to return call. Geovanna Hinds Ma [facility]07-05-2024 Telephone encounter Note* Telephone Encounter - Guanakito Reno MD - 04/19/2024 3:46 PM EDT Anemia is stable. I still need an ifobt done since he is on blood thinners to rule out gi blood loss. It may well be related to his kidneys. They are stable but worse. Did he get set up with nephrology? Was ordered previously. [facility]06-24-2024 Telephone encounter Note* Telephone Encounter - Corrina Lennon APRN.CNP - 04/08/2024 3:45 PM EDT Pt aware. Corrina Lennon APRN.KOURTNEY [facility]06-24-2024 Miscellaneous Notes* Telephone Encounter - Corrina Lennon APRN.CNP - 04/08/2024 3:45 PM EDT Pt aware. Corrina Lennon APRN.[employer] * Telephone Encounter - Josselyn Barrow LPN [...] two weeks. See nephrology documented in this encounterSelect Medical [facility] Clinic [facility] Telephone encounter Note * Telephone Encounter - Alejandro Molina RPh - 04/08/2024 3:36 PM EDT [facility] Ambulatory Pharmacy Anticoagulation Clinic Anticoagulation Episode Summary Anticoagulation Care Providers Provider Role Specialty Phone number Guanakito Reno MD [facility] [phone] Cal Mitchell is a 78 year old [...] Pharmacy Anticoagulation Clinic Pharmacy Anticoagulation Clinic Pager: [phone]. [facility]06-24-2024 Miscellaneous Notes* Telephone Encounter - Alejandro Molina RPh - 04/08/2024 3:36 PM EDT [facility] Ambulatory Pharmacy Anticoagulation Clinic Anticoagulation Episode Summary Anticoagulation Care Providers Provider Role Specialty Phone number Guanakito Reno MD [facility] [phone] Cal Mitchell is a 78 year old [...] Pharmacy Anticoagulation Clinic Pharmacy Anticoagulation Clinic Pager: [phone]. documented in this encounterSelect Medical Cleveland Clinic [facility] Instructions* Patient Instructions* Corrina Lennon APRN.CNP - 04/08/2024 3:11 PM EDT Continue the same medication. Get the repeat labs in 2 weeks. Get the echo, carotid ultrasound, kidney ultrasound as planned. Schedule w/ nephrology. Schedule back in 1 month for recheck. documented in this encounterSelect Medical [facility] Clinic [facility] History of Present illness Narrative* Corrina Lennon [...] 250.00. Insulin: No Lancets (ONE TOUCH DELICA) [facility] lancets Test blood sugar(s) one time daily. [...] agrees with the plan. documented in this encounterSelect Medical [facility] Clinic [facility] Telephone encounter Note * Telephone Encounter - [...] Diana Jimenez PharmD, MPH Anticoagulation Clinic Pharmacist [phone] [facility]06-22-2024 Miscellaneous Notes* Telephone Encounter - Nabila Jimenez [...] Diana Jimenez PharmD, MPH Anticoagulation Clinic Pharmacist [phone] * Telephone Encounter - Nabila Jimenez RPh - 04/06/2024 3:49 PM EDT Called and LM for patient and sent [employer] referenced in VM (though patient has not logged into [employer] since December). Patient was asked to call/page PAC at next convenience to confirm receipt of message Will follow up on Monday and expect next INR on that date Diana Jimenez, SamirD, MPH Anticoagulation Clinic Pharmacist [phone] * Telephone Encounter - Yamilka Heath RN - 04/04/2024 1:14 PM EDT Alana Perez calling in INR result today (04/04.) result has been addressed below. Apurva Heath, BENJIE Pharmacy Anticoagulation Clinic * Telephone Encounter - Jimmy Carrizales [facility] - 04/04/2024 12:26 PM EDT [facility] Ambulatory Pharmacy Anticoagulation Clinic Anticoagulation Episode Summary Anticoagulation Care Providers Provider Role Specialty Phone number Guanakito Reno MD [facility] Medicine [phone] Cal Mitchell is a 78 year old [...] ALLERGIES No Known Allergies Indication for Warfarin: 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 Paroxysmal atrial fibrillation (hcc) Anticoagulation Episode Summary Current INR goal: 2.0-3.0 Assessment: INR result of 6.0 is SUPRAtherapeutic due to: unknown cause - did not speak to patient Plan: Current Warfarin Dosing As of 04/04/2024 Full warfarin instructions: 04/04: Hold; Otherwise 7.5 mg every Tu; 5 mg all other days Left voice message Advised patient to HOLD warfarin and call the PAC back to discuss PAC will follow up tomorrow if no return call tomorrow Jimmy Carrizales RPh Clinical Pharmacist, Pharmacy Anticoagulation Clinic Pharmacy Anticoagulation Clinic Pager: [phone]. documented in this encounterSelect Medical [facility] Clinic [facility] Telephone encounter Note * Telephone Encounter - Nabila Jimenez RPh - 04/06/2024 3:49 PM EDT Called and LM for patient and sent [employer] referenced in VM (though patient has not logged into [employer] since December). Patient was asked to call/page PAC at next convenience to confirm receipt of message Will follow up on Monday and expect next INR on that date Diana Jimenez, [place], MPH Anticoagulation Clinic Pharmacist [phone] [facility]06-21-2024 Telephone encounter Note* Telephone Encounter - Josselyn Barrow LPN - 04/05/2024 4:25 PM EDT Has visit scheduled with Corrina on Monday will route to their pool. If he keeps that appt can you please close for us? Thank you. [facility]06-21-2024 Telephone encounter Note* Telephone Encounter - Carolina Alba MA - 04/05/2024 4:19 PM EDT No answer. Left detailed message stating we were calling in regards to results and needing to discuss a few things. Advised to return call. Carolina Alba MA [facility]06-21-2024 Telephone encounter Note* Telephone Encounter - Jonelle Worley LPN - 04/05/2024 10:41 AM EDT Phoned patient left message to return call and ask to speak to a nurse. [facility]06-21-2024 Telephone encounter Note* Telephone Encounter - Guanakito Reno MD - 04/05/2024 10:21 AM EDT Anemia is stable. May be related to his kidneys. Renal function continues to be slightly worse. Get renal us as ordered. Check ifobt. Recheck labs in two weeks. See nephrology [facility]06-20-2024 Telephone encounter Note* Telephone Encounter - Yamilka Heath RN - 04/04/2024 1:14 PM EDT Alana Perez calling in INR result today (04/04.) result has been addressed below. Apurva Heath RN Pharmacy Anticoagulation Clinic [facility]06-20-2024 Telephone encounter Note* Telephone Encounter - Jimmy Carrizales [facility] - 04/04/2024 12:26 PM EDT [facility] Ambulatory Pharmacy Anticoagulation Clinic Anticoagulation Episode Summary Anticoagulation Care Providers Provider Role Specialty Phone number Guanakito Reno MD [facility] Medicine [phone] Cal Mitchell is a 78 year old [...] ALLERGIES No Known Allergies Indication for Warfarin: [facility] (current) use of anticoagulants Paroxysmal atrial fibrillation [...] no return call tomorrow Jimmy Carrizales [facility] Clinical Pharmacist, Pharmacy Anticoagulation Clinic Pharmacy Anticoagulation Clinic Pager: [phone]. [facility]06-11-2024 Instructions* Patient Instructions* Guanakito Reno MD - 03/26/2024 5:00 PM EDT Stop lisinopril hctz Start lisinopril. Call if any shortness of breath or edema. Weigh daily. Call us if you gain more than 3-4 lbs in a 24 hour period Get carotid ultrasound Recheck labs end of this week or early next. documented in this encounterSelect Medical Cleveland Clinic [facility] History of Present illness Narrative* Guanakito Reno [...] mg daily. Needs 30 day supply to [employer] while waiting for shipment from [employer]. No myalgias HTN: Continues on Zestoretic [...] 250.00. Insulin: No Lancets (ONE TOUCH DELICA) [facility] lancets Test blood sugar(s) one time daily. [...] -overdue for recheck. - US CAROTID ARTERIES [facility] 7. Type 2 diabetes mellitus with stage 3 chronic kidney disease, without long- term current use of insulin, unspecified whether stage 3a or 3b CKD (HCC) - ICD9: 250.40, 585.3, ICD10: E11.22, N18.30 - recheck A1c, ? Need actos. - HEMOGLOBIN A1C 8. 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 9. 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 - ICD9: V58.61, [...] two weeks or prn. documented in this encounterSelect Medical [facility] History of Present illness Narrative* Pam Reddy MD - 03/25/2024 5:19 PM EDT Images from the original note were not included. Pam Reddy MD Interventional Cardiology [address] [place] [address] [phone] Chief Complaint Patient presents with: Follow Up [...] 150 Strip 3 Lancets (ONE TOUCH DELICA) [facility] lancets Test blood sugar(s) one time daily. [...] to correct any errors. documented in this encounterSelect Medical Cleveland Clinic [facility]05-24-2024 History of Present illness Narrative* Melania Galindo RN - 03/08/2024 8:42 AM EDTSummary: Medication adherence and suspected condition review per request of payor ACM LUIS RN Reason for review or outreach: Medication Adherence Review Details: Cholesterol and Hypertension Suspect Condition Review per request of payer= [facility]/REQUESTED ACTION: Summary / Findings: Atorvastatin 60 mg tablet last renewed 09/15/24(100 day quantity) Lisinopril/HCTZ tablet 20mg-12.5mg last renewed 10/17/23 (100 day quantity) Patient identified by name and date of . Patient Attributed To: [facility] Payer: [facility] Action Taken: Data submitted to Wanova message to patient Notation made to upcoming appointment notes requesting provider follow up Contact made with patient: No, Chart review only. Melania Galindo RN documented in this encounterSelect Medical [facility] Clinic [facility]05-23-2024 Telephone encounter Note * Telephone Encounter - Jimmy Carrizales, [facility] - 03/07/2024 11:54 AM EDT [facility] Amb[facility] Anticoagulation Clinic Anticoagulation Episode Summary Anticoagulation Care Providers Provider Role Specialty Phone number Guanakito Reno MD [facility] Family Medicine [phone] Cal Mitchell is a 78 year old [...] ALLERGIES No Known Allergies Indication for Warfarin: [facility] (current) use of anticoagulants Paroxysmal atrial fibrillation [...] check scheduled on 03/21/2024 Jimmy Carrizales [facility] Clinical Pharmacist, Pharmacy Anticoagulation Clinic Pharmacy An[facility] Clinic Pager: [phone]. [facility]05-23-2024 Miscellaneous Notes* Telephone Encounter - Jimmy Carrizales RPh - 03/07/2024 11:54 AM EDT [facility] Anticoagulation Clinic Anticoagulation Episode Summary Anticoagulation Care Providers Provider Role Specialty Phone number Guanakito Reno MD [facility] Family Medicine [phone] Cal Mitchell is a 78 year old [...] ALLERGIES No Known Allergies Indication for Warfarin: 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 Paroxysmal atrial fibrillation [...] Pharmacy Anticoagulation Clinic Pharmacy Anticoagulation Clinic Pager: [phone]. documented in this encounterSelect Medical [facility]05-01-2024 Telephone encounter Note * Telephone Encounter - Ruthie Cuevas RPh - 02/14/2024 9:04 AM EDT [facility] Ambulatory Pharm[facility] Anticoagulation Clinic Anticoagulation Episode Summary Anticoagulation Care Providers Provider Role Specialty Phone number Guanakito Reno MD [facility] Medicine [phone] Cal Mitchell is a 78 year old [...] ALLERGIES No Known Allergies Indication for Warfarin: 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 Paroxysmal atrial fibrillation [...] Pharmacy Anticoagulation Clinic Pharmacy Anticoagulation Clinic Pager: [phone]. [address]01-2024 Miscellaneous Notes* Telephone Encounter - Ruthie Cuevas, [facility] - 02/14/2024 9:04 AM EDT [facility] Ambulatory Pharm[facility] Anticoagulation Clinic Anticoagulation Episode Summary Anticoagulation Care Providers Provider Role Specialty Phone number Guanakito Reno MD [facility] [phone] Cal Mitchell is a 78 year old [...] ALLERGIES No Known Allergies Indication for Warfarin: 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 Paroxysmal atrial fibrillation [...] Pharmacy Anticoagulation Clinic Pharmacy Anticoagulation Clinic Pager: [phone]. documented in this encounterSelect Medical [facility]04-03-2024 Miscellaneous Notes* Telephone Encounter - Darrell Meyer [...] Thank you. Betzy Colvin. documented in this encounterSelect Medical [facility] Clinic [facility]04-03-2024 Miscellaneous Notes* Telephone Encounter - Betzy Colvin - 01/17/2024 3:22 PM EDT Patient's daughter calling to request medication that is on patient list pioglitazone (ACTOS) 15 mg tablet [facility] to [facility]. documented in this encounterSelect Medical [facility]04-01-2024 Miscellaneous Notes* Telephone Encounter - Alejandro Molina RPh - 01/15/2024 10:32 AM EDT [facility] Amb[facility] Anticoagulation Clinic Anticoagulation Episode Summary Anticoagulation Care Providers Provider Role Specialty Phone number Guanakito Reno MD [facility] [phone] Cal Mitchell is a 78 year old [...] instructed to call [facility] at [phone] with any questionsor concerns. Alejandro Molina RPh Clinical Pharmacist, Pharmacy Anticoagulation Clinic Pharmacy Anticoagulation Clinic Pager: [phone] documented in this encounterSelect Medical [facility] Clinic [facility]03-08-2024 Instructions* Patient Instructions* Carolina Landeros APRN.CNS - 12/22/2023 3:30 PM EST 1) Telfa dressing change daily 2) Letter for [facility] 3) Follow up in 4) Melatonin 3mg qhs and may repeat once through night if needed documented in this encounterSelect Medical Cleveland Clinic [facility]03-08-2024 History of Present illness Narrative* Carolina Landeros [...] 250.00. Insulin: No Lancets (ONE TOUCH DELICA) [facility] lancets Test blood sugar(s) one time daily. [...] as needed for worsening/no improvement. Carolina Landeros APRN.LINDSAY The patient indicates understanding of these issues and agrees with the plan. documented in this encounterSelect Medical Cleveland Clinic [facility]03-07-2024 Miscellaneous Notes* Telephone Encounter - Teresa Alexis [...] 7. TETANUS: 04/22/21 Protocols used: Cuts and [id number] documented in this encounterSelect Medical Cleveland Clinic [facility]03-07-2024 Miscellaneous Notes* Telephone Encounter - Jimmy Carrizales, [facility] - 12/21/2023 9:03 AM EST [facility] Ambulatory Pharm[facility] Anticoagulation Clinic Anticoagulation Episode Summary Anticoagulation Care Providers Provider Role Specialty Phone number Guanakito Reno MD [facility] [phone] Cal Mitchell is a 78 year old [...] ALLERGIES No Known Allergies Indication for Warfarin: [facility] (current) use of anticoagulants Paroxysmal atrial fibrillation [...] check scheduled on 01/04/2024 Jimmy Carrizales [facility] Clinical Pharmacist, Pharmacy Anticoagulation Clinic Pharmacy Anticoagulation Clinic Pager: [phone]. documented in this encounterSelect Medical Cleveland Clinic [facility]02-19-2024 Miscellaneous Notes* Telephone Encounter - Daniel JansenShipping And Receiving Supervisor)Ashley - 12/04/2023 11:53 AM EST PATIENT CALL Received call from Summer with [facility] to report home meter result for patient. [facility] hasalready addressed this result (see below); nothing further needed at this time. Ashley Sanchez CPhT (Perfumer) Pharmacy Anticoagulation Clinic * Telephone Encounter - Alejandro Molina RPh - 12/04/2023 9:44 AM EST [facility] Ambulatory Pharm[facility] Anticoagulation Clinic Anticoagulation Episode Summary Anticoagulation Care Providers Provider Role Specialty Phone number Guanakito Reno MD [facility] Medicine [phone] Cal Mitchell is a 78 year old [...] instructed to call [facility] at [phone] with any questionsor concerns. Alejandro Molina [facility] Clinical Pharmacist, Pharmacy Anticoagulation Clinic Pharmacy Anticoagulation Clinic Pager: [phone] documented in this encounterSelect Medical [facility]12-06-2023 Miscellaneous Notes* Telephone Encounter - Ruthie Cuevas RP - 09/20/2023 1:16 PM EST [facility] Ambulatory Pharmacy Anticoagulation Clinic Anticoagulation Episode Summary Anticoagulation Care Providers Provider Role Specialty Phone number Guanakito Reno MD [facility] Medicine [phone] Cal Mitchell is a 78 year old [...] ALLERGIES No Known Allergies Indication for Warfarin: [facility] (current) use of anticoagulants Paroxysmal atrial fibrillation [...] Pharmacy Anticoagulation Clinic Pharmacy Anticoagulation Clinic Pager: [phone]. documented in this encounterSelect Medical [facility]11-21-2023 History of Present illness Narrative* Mouna Vallecillo RN - 09/05/2023 1:48 PM ESTSummary: Medication Adherence review per request of payer ACM LUIS RN Action/FYI: Medication Adherence review completed per request of payer. NO PROVIDER ACTION REQUIRED Patient identified by name and date of . Patient Attributed To: [facility] Payer: [facility] Reason for review or outreach: Medication Adherence Medication Adherence Review Details: Diabetes Summary / Findings: GLIMEPIRIDE -- Refill Due - 07/18/2023 ATORVASTATIN -- Refill Due - 08/21/2023 Pharmacy - [facility] - Action Taken: Data submitted to Wanova message to patient Contact made with patient: No, Chart review only. documented in this encounterSelect Medical [facility] Clinic [facility]11-07-2023 Miscellaneous Notes* Telephone Encounter - Twin Cole RPh - 08/22/2023 9:46 AM EST [facility] Ambulatory Pharm[facility] Anticoagulation Clinic Anticoagulation Episode Summary Anticoagulation Care Providers Provider Role Specialty Phone number Guanakito Reno MD [facility] Medicine [phone] Cal Mitchell is a 78 year old [...] Pharmacy Anticoagulation Clinic Pharmacy Anticoagulation Clinic Pager: [phone]. documented in this encounterSelect Medical [facility]11-01-2023 Miscellaneous Notes* Telephone Encounter - Gerardo Fountain [...] states "one." Please phone Elly with reply: [phone] Copied and pasted provider's message from previous encounter: Sugars are really good. Stop his glimepiride. Call sugars in two weeks. His kidney function is worse, recheck labs in one . Make sure drinking adequate fluids. documented in this encounterSelect Medical [facility] Clinic [facility]10-31-2023 Miscellaneous Notes* Telephone Encounter - Niels Rodriges [...] sure drinking adequate fluids. documented in this encounterSelect Medical [facility] Clinic [facility]10-30-2023 History of Present illness Narrative* Guanakito Reno [...] 250.00. Insulin: No Lancets (ONE TOUCH DELICA) [facility] lancets Test blood sugar(s) one time daily. [...] YR, HIGH DOSE, QUADRIVALENT (FLUZONE HIGH-DOSE) - [employer] COVID-19 VACCINE (2022- SEASON) AGE 12+ YR [...] N18.31 Guanakito Reno MD documented in this encounterSelect Medical [facility]10-11-2023 Miscellaneous Notes* Telephone Encounter - Ruthie Cuevas [facility] - 07/26/2023 4:50 PM EDT [facility] Ambulatory Pharmacy Anticoagulation Clinic Anticoagulation Episode Summary Anticoagulation Care Providers Provider Role Specialty Phone number Guanakito Reno MD [facility] Family Medicine [phone] Cal Mitchell is a 78 year old [...] ALLERGIES No Known Allergies Indication for Warfarin: [facility] (current) use of anticoagulants Paroxysmal atrial fibrillation [...] Pharmacy Anticoagulation Clinic Pharmacy Anticoagulation Clinic Pager: [phone]. documented in this encounterSelect Medical [facility]09-19-2023 Miscellaneous Notes* Telephone Encounter - Pily Cuevas - 07/04/2023 3:50 PM EDT Patient needs to have a gap supply sent to [facility] as well please send at least a [...] patient. Pily Chaparro Pss documented in this encounterSelect Medical Cleveland [facility]09-12-2023 History of Present illness Narrative* Lizette Cardenas RN - 2023 3:08 PM EDT ACM LUIS RN Action/FYI: Medication Adherence review completed per request of payer. NO PROVIDER ACTION REQUIRED Please see requests in the Summary/Findings section below Patient identified by name and date of . Patient Att[facility] To: [facility] Payer: [facility] Reason for review or outreach: Medication Adherence Medication Adherence Review Details: Hypertension Summary / Findings: Lisinopril was due for refill on: 05/16/[facility] Action Taken: Data submitted to Wanova message to patient Other Contact made with patient: No, Chart review only. Signature: Lizette Cardenas RN documented in this encounterSelect Medical [facility]08-07-2023 Miscellaneous Notes* Telephone Encounter - Alejandro Molina RPh - 05/22/2023 10:12 AM EDT [facility] Ambulatory Pharmacy Anticoagulation Clinic Anticoagulation Episode Summary Anticoagulation Care Providers Provider Role Specialty Phone number Guanakito Reno MD [facility] Medicine [phone] Cal Mitchell is a 77 year old [...] instructed to call [facility] at [phone] with any questionsor concerns. Alejandro Molina RPh Clinical Pharmacist, Pharmacy Anticoagulation Clinic Pharmacy Anticoagulation Clinic Pager: [phone] documented in this encounterSelect Medical [facility]07-10-2023 Miscellaneous Notes* Telephone Encounter - Alejandro Molina RPh - 04/24/2023 10:04 AM EDT [facility] Ambulatory Pharmacy Anticoagulation Clinic Anticoagulation Episode Summary Anticoagulation Care Providers Provider Role Specialty Phone number Guanakito Reno MD [facility] [phone] Cal Mitchell is a 77 year old [...] verbalizes understanding of the plan. Alejandro Molina [facility] Clinical Pharmacist, Pharmacy Anticoagulation Clinic Pharmacy Anticoagulation Clinic Pager: [phone]. documented in this encounterSelect Medical [facility]07-05-2023 Miscellaneous Notes* Telephone Encounter - Anna Mas [...] notify patient. Leslie Horne documented in this encounterSelect Medical Cleveland Clinic [facility]06-13-2023 Miscellaneous Notes* Telephone Encounter - Twin Cole RPh - 03/28/2023 3:22 PM EDT [facility] Ambulatory Pharmacy Anticoagulation Clinic Anticoagulation Episode Summary Anticoagulation Care Providers Provider Role Specialty Phone number Guanakito Reno MD [facility] Medicine [phone] Cal Mitchell is a 77 year old [...] Pharmacy Anticoagulation Clinic Pharmacy Anticoagulation Clinic Pager: [phone]. documented in this encounterSelect Medical Cleveland [facility]05-01-2023 History of Present illness Narrative* Dory Mayers RN - 02/13/2023 4:13 PM EDT EVENT MONITOR DISPOSABLE PATCH INSTRUCTIONS Patient Name: Cal Mitchell Clinic Number: [id number] Skin prepped and cleansed with alcohol Patch secured to prepped area Monitor Activated Serial #: [id number] Patient Instructed: Prescribed order timeframe Bathing guidelines Usage of event button and diary documentation Return of monitor at the end of prescribed order Call with problems [phone] or [phone] ext. [phone] Patient expresses a good understanding of instructions Dory Mayers RN * Pam Reddy MD - 02/13/2023 4:01 PM EDT Images from the original note were not included. Pam Reddy MD Interventional Cardiology [place] [address] [place] [address] [phone] Chief Complaint Patient presents with: Established Patient [...] 150 Strip 3 Lancets (ONE TOUCH DELICA) [facility] lancets Test blood sugar(s) one time daily. Dx: 250.00. Insulin: No1 Each 0 Current Facility-Administered Medications Medication Dose Route Frequency Provider Last Rate Last Admin perflutren lipid microspheres 1.3 mL in NaCl (PF) 0.9% 10 mL injection (DEFINITY) INTRAVENOUS DIRECTED PRAngely Reddy MD sodium chloride 0.9 % (flush) 10 mL (BD POSIFLUSH) 10 mL INTRAVENOUS DIRECTED PRAngely Reddy MD perflutren lipid microspheres 1.3 mL [...] to correct any errors. documented in this encounterSelect Medical [facility]04-24-2023 History of Present illness Narrative* Guanakito Reno [...] vaccine - ICD9: V04.89, ICD10: Z23 - [employer] COVID-19 BIVALENT VACCINE, AGE 12+ YR Guanakito Reno MD documented in this encounterSelect Medical Cleveland [facility]04-03-2023 Miscellaneous Notes* Telephone Encounter - Corrina Lennon APRN.[employer] - 01/16/2023 1:31 PM EDT Script sent. [...] notify patient. Winifred Zazueta documented in this encounterSelect Medical [facility]03-30-2023 Miscellaneous Notes* Telephone Encounter - Jimmy Carrizales RPh - 01/12/2023 4:25 PM EDT [facility] Ambulatory Pharmacy Anticoagulation Clinic Anticoagulation Episode Summary Anticoagulation Care Providers Provider Role Specialty Phone number Guanakito Reno MD [facility] Family Medicine [phone] Cal Mitchell is a 77 year old [...] ALLERGIES No Known Allergies Indication for Warfarin: [facility] (current) use of anticoagulants Paroxysmal atrial fibrillation [...] verbalizes understanding of the plan. Jimmy Carrizales RP Clinical Pharmacist, Pharmacy Anticoagulation Clinic Pharmacy Anticoagulation Clinic Pager: [phone]. * Telephone Encounter - Ruthie Cuevas RPh - 01/11/2023 9:21 AM EDT [facility] Ambulatory Pharmacy Anticoagulation Clinic Anticoagulation Episode Summary Anticoagulation Care Providers Provider Role Specialty Phone number Guanakito Reno MD [facility] [phone] Cal Mitchell is a 77 year old [...] ALLERGIES No Known Allergies Indication for Warfarin: [facility] (current) use of anticoagulants Paroxysmal atrial fibrillation [...] pt and his daughter, January. Ruthie Cuevas [facility] Clinical Pharmacist, Pharmacy Anticoagulation Clinic Pharmacy Anticoagulation Clinic Pager: [phone]. * Telephone Encounter - Alejandro Molina RPh - 01/09/2023 4:34 PM EDT Patient was due to test INR today. Will continue to monitor for results. documented in this encounterSelect Medical [facility]03-06-2023 Miscellaneous Notes* Telephone Encounter - Alejandro Molina RPh - 12/19/2022 10:37 AM EST [facility] Ambulatory Pharmacy Anticoagulation Clinic Anticoagulation Episode Summary Anticoagulation Care Providers Provider Role Specialty Phone number Guanakito Reno MD [facility] [phone] Cal Mitchell is a 77 year old [...] 12/19/2022 Full warfarin instructions: 7.5 mg every Mon, Kaye; 5 mg all other days Left voice message Advised patient to continue current weekly dose as noted above Next INR check due on 01/09/2023 Patient instructed to call [facility] at [phone] with any questionsor concerns. Alejandro Molina RPh Clinical Pharmacist, Pharmacy Anticoagulation Clinic Pharmacy Anticoagulation Clinic Pager: [phone] documented in this encounterSelect Medical [facility]02-13-2023 Miscellaneous Notes* Telephone Encounter - Alejandro Molina RPh - 11/28/2022 10:18 AM EST [facility] Ambulatory Pharmacy Anticoagulation Clinic Anticoagulation Episode Summary Anticoagulation Care Providers Provider Role Specialty Phone number Guanakito Reno MD [facility] [phone] Cal Mitchell is a 77 year old [...] instructed to call [facility] at [phone] with any questionsor concerns. Alejandro Molina RPh Clinical Pharmacist, Pharmacy Anticoagulation Clinic Pharmacy Anticoagulation Clinic Pager: [phone] documented in this encounterSelect Medical [facility]02-03-2023 Miscellaneous Notes* Telephone Encounter - Kamran Ayon RPh - 11/18/2022 12:49 PM EST Patient due to test INR today. Will continue to monitor for results. Kamran Ayon RPh documented in this encounterSelect Medical [facility]01-20-2023 Miscellaneous Notes* Telephone Encounter - Kamran Ayon RPh - 11/04/2022 8:02 AM EST [facility] Ambulatory Pharmacy Anticoagulation Clinic Anticoagulation Episode Summary Anticoagulation Care Providers Provider Role Specialty Phone number Guanakito Reno MD [facility] Internal Medicine [phone] Cal Mitchell is a 77 year old [...] ALLERGIES No Known Allergies Indication for Warfarin: [facility] (current) use of anticoagulants Paroxysmal atrial fibrillation (hcc) Anticoagulation Episode Summary Current INR goal: 2.0-3.0 Assessment: INR result of 2.2 is therapeutic Plan: Current Warfarin Dosing As of 11/04/2022 Full warfarin instructions: 7.5 mg every Tue, Kaye; 5 mg all other days; Starting 11/04/2022 Sent Yippy message Advised patient to continue current weekly dose as noted above Next home INR check scheduled on 11/18/2022 Kamran Ayon RPh Clinical Pharmacist, Pharmacy Anticoagulation Clinic Pharmacy Anticoagulation Clinic Pager: [phone]. documented in this encounterSelect Medical [facility]01-17-2023 Miscellaneous Notes* Telephone Encounter - Twin Cole RPh - 11/01/2022 10:30 AM EST Patient due to test INR today. Will continue to monitor for results. 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 * Telephone Encounter - Ruthie Cuevas RPh - 10/19/2022 4:33 PM EST Patient was due to test INR today will continue to monitor for results. Ruthie Cuevas PharmD documented in this encounterSelect [facility] History of Present illness Narrative* Alondra Prescott DO - 10/04/2022 10:58 AM EST This office note has been dictated. Alondra Prescott DO * Alondra Prescott DO - 10/04/2022 12:00 AM EST NAME: CAL MITCHELL [facility] NO: [id number] DATE OF SERVICE: 10/04/2022 Subjective: Mr. Mitchell [...] concerns. Alondra Prescott D.O. KB/[id number] Audio #: [id number] Date Dictated: 10/04/2022 10:13:59 Date Typed: 10/05/2022 14:12:47 Date Revised: documented in this encounterSelect Medical [facility]12-15-2022 Miscellaneous Notes* Telephone Encounter - Jimmy Carrizales [facility] - 09/29/2022 4:38 PM EST [facility] Ambulatory Pharm[facility] Anticoagulation Clinic Anticoagulation Episode Summary Anticoagulation Care Providers Provider Role Specialty Phone number Guanakito Reno MD [facility] [phone] Cal Mitchell is a 77 year old [...] ALLERGIES No Known Allergies Indication for Warfarin: [facility] (current) use of anticoagulants Paroxysmal atrial fibrillation [...] Patient denies need for refills. Jimmy Carrizales [facility] Clinical Pharmacist, Pharmacy Anticoagulation Clinic Pharmacy Anticoagulation Clinic Pager: [phone]. * Telephone Encounter - Ruben Cunningham (Move In History) - 09/29/2022 2:23 PM EST PATIENT CALL Patient's daughter January called call center regarding results. Patient's daughter stated the INR result was 1.9 last night at 9:30 pm and gave him an extra 1/2 tablet of warfarin. January will reach out to [facility] to report result and to have them troubleshoot application for new phone. PT INR (no units) Date Value 01/24/2022 2.1 biotel 10/26/2021 2.1 (Biotel) 03/04/2021 2.4 INR Home CoaguChek (no units) Date Value 09/14/2022 1.8 07/29/2022 2.2 07/04/2022 2.7 Patient stated she lets blocked calls go to [employer]. She asked if she needed to be near the meterto report the results over the phone to [facility]--advised her I am not sure. January can be reached at [phone] Ruben Cunningham (Move In History) * Telephone Encounter - Ruthie Cuevas RPh - 09/28/2022 9:49 AM EST Cal Chanell Mitchell was called and reminded to test INR today or as soon as possible. LM on home/cellwhich may be his daughter, Elly's number. Ruthie Cuevas PharmD Pharmacy Anticoagulation [facility] * Telephone Encounter - Ruthie Cuevas RPh - 09/21/2022 9:51 AM EST Patient was due to test INR today will continue to monitor for results. Ruthie Cuevas PharmD Pharmacy [facility]tico[facility] Clinic documented in this encounterSelect Medical [facility]12-09-2022 Miscellaneous Notes* Telephone Encounter - Yasemin Cook [...] and advise. Yasemin Cook documented in this encounterSelect Medical Cleveland [facility]12-01-2022 Miscellaneous Notes* Telephone Encounter - Yamilka Heath [...] only asked for and not patient's name. Jilld Bonita at [facility]. Apurva Heath RN Pharmacy Anticoagulation Clinic * Telephone Encounter - Jimmy Carrizales RPh - 09/15/2022 10:24 AM EST [facility] Clinic Anticoagulation Episode Summary Anticoagulation Care Providers Provider Role Specialty Phone number Guanakito Reno MD [facility] [phone] Cal Mitchell is a 77 year old [...] ALLERGIES No Known Allergies Indication for Warfarin: [facility] (current) use of anticoagulants Paroxysmal atrial fibrillation (hcc) Anticoagulation Episode Summary Current INR goal: 2.0-3.0 Assessment: INR result of is SUBtherapeutic due to: unknown cause - did not speak to patient Plan: Current Warfarin Dosing As of 08/22/2022 Full warfarin instructions: 09/15: 7.5 mg; Otherwise 7.5 mg every Tue; 5 mg all other days; Xebcsjjt07/7/2022 Called and spoke to patient/caregiver - per demographics we only have daughter's phone number but no identifier Advised patient to increase dose for 1 day only then resume weekly regimen Next home INR check scheduled on 09/21/2022 Jimmy Carrizales [facility] Clinical Pharmacist, Pharmacy Anticoagulation Clinic Pharmacy Anticoagulation Clinic Pager: [phone]. * Telephone Encounter - Alejandro Molina RPh [...] to monitor for results. documented in this encounterSelect Medical Cleveland Clinic [facility]11-23-2022 History of Present illness Narrative* Lizette Cardenas RN - 09/07/2022 6:24 AM EST ACM LUIS RN Action/FYI: Medication Adherence review completed per request of [facility]. NO PROVIDER ACTION REQUIRED Lisinopril/Hctz 20-12.5mg Last filled: 05/21/22 Days Supply: 90 Refill Due: 08/19/22 Pharmacy: [facility] Atorvastatin 80mg Last filled: 03/20/22 Days Supply: 90 Refill Due: 06/28/22 Pharmacy: [facility] MY CHART MESSAGE SENT Patient identified by name and date of . Patient Attributed To: QAE Payer: [facility] Reason for review or outreach: Medication Adherence Medication Adherence Review Details: Cholesterol and Hypertension Summary / Findings: As per above Action Taken: Data submitted to [employer] message to patient Contact made with patient: No, Chart review only. Signature: Lizette Cardenas RN documented in this encounterSelect Medical Cleveland Clinic [facility]10-31-2022 History of Present illness Narrative* Pam Reddy MD - 08/15/2022 3:48 PM EDT Images from the original note were not included. Pam Reddy MD Interventional Cardiology [facility] [address] [place], [place] [address] [phone] Chief Complaint Patient presents with: Consult HISTORY [...] 8 hours as needed. blood sugar diagnostic (PublishThis ULTRA TEST) test strip Test blood sugar(s) one times daily. Dx: 250.00. Insulin: No 150 Strip 3 Lancets (ONE TOUCH DELICA) [facility] lancets Test blood sugar(s) one time daily. [...] to correct any errors. documented in this encounterSelect Medical Cleveland Clinic [facility]10-17-2022 Miscellaneous Notes* Telephone Encounter - Alejandro Molina RPh - 08/01/2022 9:52 AM EDT [facility] Amb[facility] Anticoagulation Clinic Anticoagulation Episode Summary Anticoagulation Care Providers Provider Role Specialty Phone number Guanakito Reno MD [facility] [phone] Cal Mitchell is a 77 year old [...] instructed to call [facility] at [phone] with any questionsor concerns. Alejandro Molina RPh Clinical Pharmacist, Pharmacy Anticoagulation Clinic Pharmacy Anticoagulation Clinic Pager: [phone] documented in this encounterSelect Medical [facility] Clinic [facility]10-07-2022 Miscellaneous Notes* Telephone Encounter - Darrell Meyer [...] advise. Darrell Meyer LPN documented in this encounterSelect Medical Cleveland [facility]09-20-2022 Miscellaneous Notes* Telephone Encounter - Twin Cole RPh - 07/05/2022 9:30 AM EDT [facility] Ambulatory Pharm[facility] Anticoagulation Clinic Anticoagulation Episode Summary Anticoagulation Care Providers Provider Role Specialty Phone number Guanakito Reno MD [facility] [phone] Cal Mitchell is a 77 year old [...] Pharmacy Anticoagulation Clinic Pharmacy Anticoagulation Clinic Pager: [phone]. * Telephone Encounter - Alejandro Molina RPh - 07/04/2022 3:42 PM EDT Cal Mitchell was called and reminded to test INR today or as soon as possible. * Telephone Encounter - Alejandro Molina RPh - 2022 4:11 PM EDT Patient was due to test INR today. Will continue to monitor for results. documented in this encounterSelect Medical [facility]08-30-2022 Miscellaneous Notes* Telephone Encounter - Twin Cole RPh - 06/14/2022 9:14 AM EDT [facility] Ambulatory Pharm[facility] Anticoagulation Clinic Anticoagulation Episode Summary Anticoagulation Care Providers Provider Role Specialty Phone number Guanakito Reno MD [facility] [phone] Cal Mitchell is a 76 year old [...] Pharmacy Anticoagulation Clinic Pharmacy Anticoagulation Clinic Pager: [phone]. * Telephone Encounter - Val Oliver RPh - 06/13/2022 9:09 AM EDT MyChart message sent as a reminder to test INR RAISSA. * Telephone Encounter - Alejandro Molina RPh - 06/06/2022 4:50 PM EDT Patient was due to test INR today. Will continue to monitor for results. documented in this encounterSelect Medical Cleveland Clinic [facility]08-30-2022 History of Present illness Narrative* Nirmala Lim MA - 06/14/2022 9:03 AM EDT POPULATION HEALTH NAVIGATION OUTREACH Action/FYI Called and left a message to call [phone], to discuss health maintenance items that are due. Sent My Chart message. PCP appt: 01/19- needs follow up per last ov note My chart activation: active Advance directive: needs info HM due: Follow up ARIAN AD Pt identified by name and : NO Outreach Outcome/Action Unable to reach patient: Left message [employer] message sent Did you use a PCP flex slot to schedule this appointment? N/A Reason for Outreach Care Gap or Scheduling/Wellness visits Payer: Payor: [employer] / Plan: UHC AARP MEDICARE HMO [...] 14, 2022 9:05 AM documented in this encounterSelect Medical Cleveland Clinic [facility]08-04-2022 Miscellaneous Notes* Telephone Encounter - Huong Whittaker Ma - 05/19/2022 12:50 PM EDT Patient last visit with PCP 01/19/22 Follow up appointment scheduled none Huong Whittaker Ma * Telephone Encounter - Yasemin Bowser Jose Pss - 05/19/2022 12:01 PM EDT Patient's daughter, Socorro, is calling to renew her dad's scripts through [facility]. His Lisinopril may not make it to him in time, so would like another 14 day script sent locally andthen the traditional 90 day with refill [facility] to [facility]. * Telephone Encounter - Yasemin Bowser Jose Pss - 05/19/2022 11:56 AM EDT [facility] Patient has been identified by name and [...] advise. Yasemin Garcia Pss documented in this encounterSelect Medical [facility]08-01-2022 Miscellaneous Notes* Telephone Encounter - Alejandro Molina RPh - 05/16/2022 11:54 AM EDT [facility] Ambulatory Pharm[facility] Anticoagulation Clinic Anticoagulation Episode Summary Anticoagulation Care Providers Provider Role Specialty Phone number Guanakito Reno MD [facility] [phone] Cal Mitchell is a 76 year old [...] instructed to call Pharm[facility] at [phone] with any questionsor concerns. Alejandro Molina RPh Clinical Pharmacist, Pharmacy Anticoagulation Clinic Pharmacy Anticoagulation Clinic Pager: [phone] documented in this encounterSelect Medical [facility]07-11-2022 Miscellaneous Notes* Telephone Encounter - Val Oliver [facility] - 04/25/2022 7:56 AM EDT [facility] as a reminder to test INR RAISSA. PT INR (no units) Date Value 01/24/2022 2.1 biotel 10/26/2021 2.1 (Biotel) 03/04/2021 2.4 INR Home CoaguChek (no units) Date Value 04/02/2022 2.2 03/09/2022 2.6 02/10/2022 3.4 documented in this encounterSelect Medical [facility]06-15-2022 Miscellaneous Notes* Telephone Encounter - Ruthie Cuevas [facility] - 03/30/2022 2:31 PM EDT Cal Mitchell was called and reminded to test INR today or as soon as possible. LM asking him to test. Ruthie Cuevas PharmD * Telephone Encounter - Ruthie Cuevas [facility] - 03/23/2022 4:50 PM EDT Patient was due to test INR today will continue to monitor for results. Of note - we LM last time and he didn't read our last MYC msg either. Ruthie Cuevas PharmD documented in this encounterSelect Medical [facility]06-01-2022 Miscellaneous Notes* Telephone Encounter - Nicki Nieto - 03/16/2022 10:46 AM EDT Patient is scheduled for an appt on 03/22/22 in [place]. Did call the patient to see if any external imagine has been complete, left VM to call the office Or record indicates no testing has been completed since 2019 Would you like an updated [facility] Order pending please sign if correct Thanks documented in this encounterSelect Medical Cleveland Clinic [facility]05-25-2022 Miscellaneous Notes* Telephone Encounter - Ruthie Cuevas, [facility] - 03/09/2022 4:08 PM EDT [facility] Ambulatory Pharmacy Anticoagulation Clinic Anticoagulation Episode Summary Anticoagulation Care Providers Provider Role Specialty Phone number Guanakito Reno MD [facility] [phone] Cal Mitchell is a 76 year old [...] ALLERGIES No Known Allergies 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 Plan: Called and spoke to patient/caregiver Advised patient to continue current weekly dose Next home INR check scheduled on 03/23/2022 Ruthie Cuevas RPh Clinical Pharmacist, Pharmacy Anticoagulation Clinic Pharmacy Anticoagulation Clinic Pager: [phone] . documented in this encounterSelect Medical [facility]05-05-2022 Miscellaneous Notes* Telephone Encounter - Jazmyn Garcia RPh - 02/17/2022 1:17 PM EDT Patient due to test INR today. Will continue to monitor for results. 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 * Telephone Encounter - Twin Cole RPh - 02/08/2022 4:00 PM EDT Patient due to test INR today. Will continue to monitor for results. Twin Cole RPh documented in this encounterSelect Medical [facility]04-12-2022 Miscellaneous Notes* Telephone Encounter - Twin Cole RPh - 01/25/2022 9:15 AM EDT [facility] Ambulatory Pharmacy Anticoagulation Clinic Anticoagulation Episode Summary Anticoagulation Care Providers Provider Role Specialty Phone number Guanakito Reno MD [facility] [phone] Cal Mitchell is a 76 year old [...] Pharmacy Anticoagulation Clinic Pharmacy Anticoagulation Clinic Pager: [phone] . documented in this encounterSelect Medical Cleveland Clinic [facility]04-06-2022 History of Present illness Narrative* Guanakito Reno [...] No. Dementia: Had previously been following with [facility]. Last visit 08/2020. Doesn't have anything further scheduled. Doesn't really want to go to [place], but appears last visit was distance. Does not drive. Lives w/ daughter. Stays up late at night and sleep during the day. A. Fib: Chronic anticoagulation. Denies any hematochezia/melena. Daughter does home checks. Follows w/ pharmacy. occ fall with no significant injury. Had been following with [place] [facility], but unsure when he was last seen there. Diabetes. Does not check home blood sugars. Reports compliance w/ medication. Carotid artery stenosis. Follows w/ vascular. Last visit 10/20/20. Recommended follow-up with cardiology and then Dr. Devries in [place]. He did have echo done. Unsure if he followed up with [place] [facility]. Per note, they wanted to establish [...] Abs Lymph 1.00 - 4.00 k/uL 1.65 [place]% % 7.4 Abs [place] <0.87 k/uL 0.53 [place]% % 8.2 Abs [...] Negative Negative Ketones, Urine Negative Negative Specific [place], Ur 1.005 - 1.030 1.016 Hemoglobin/Blood,Ur Negative [...] 250.00. Insulin: No Lancets (ONE TOUCH DELICA) [facility] lancets Test blood sugar(s) one time daily. [...] three months and prn. documented in this encounterSelect Medical Cleveland Clinic [facility]03-31-2022 Miscellaneous Notes* Telephone Encounter - Jazmyn Garcia [facility] - 01/13/2022 2:33 PM EDT Patient due to test INR today. Will continue to monitor for results. Jazmyn Garcia RPh documented in this encounterSelect Medical [facility]11-11-2020 History of Past illness Narrative* Problem Noted [...] of this encounter (statuses as of 08/15/2023) [facility] History of Past illness Narrative* Problem Noted [...] of this encounter (statuses as of 08/15/2023) [facility] History of Past illness Narrative* Problem Noted [...] of this encounter (statuses as of 08/16/2023) [facility] History of Past illness Narrative* Problem Noted [...] of this encounter (statuses as of 08/23/2023) [facility] History of Past illness Narrative* Problem Noted [...] of this encounter (statuses as of 09/06/2023) [facility] History of Past illness Narrative* Problem Noted [...] of this encounter (statuses as of 09/20/2023) [facility] History of Past illness Narrative* Problem Noted [...] of this encounter (statuses as of 12/04/2023) [facility] History of Past illness Narrative* Problem Noted [...] of this encounter (statuses as of 12/21/2023) [facility] History of Past illness Narrative* Problem Noted [...] of this encounter (statuses as of 12/21/2023) [facility] History of Past illness Narrative* Problem Noted [...] of this encounter (statuses as of 12/22/2023) [facility] History of Past illness Narrative* Problem Noted [...] of this encounter (statuses as of 01/15/2024) [facility] History of Past illness Narrative* Problem Noted [...] of this encounter (statuses as of 01/18/2024) [facility] History of Past illness Narrative* Problem Noted [...] of this encounter (statuses as of 01/19/2022) [facility] History of Past illness Narrative* Problem Noted [...] of this encounter (statuses as of 01/25/2022) [facility] History of Past illness Narrative* Problem Noted [...] of this encounter (statuses as of 02/11/2022) [facility] History of Past illness Narrative* Problem Noted [...] of this encounter (statuses as of 03/09/2022) [facility] History of Past illness Narrative* Problem Noted [...] of this encounter (statuses as of 03/17/2022) [facility] History of Past illness Narrative* Problem Noted [...] of this encounter (statuses as of 03/18/2022) [facility] of Past illness Narrative* Problem Noted [...] of this encounter (statuses as of 04/04/2022) [facility] History of Past illness Narrative* Problem Noted [...] of this encounter (statuses as of 04/25/2022) [facility] History of Past illness Narrative* Problem Noted [...] of this encounter (statuses as of 05/13/2022) [facility] of Past illness Narrative* Problem Noted [...] of this encounter (statuses as of 05/16/2022) [facility] of Past illness Narrative* Problem Noted [...] of this encounter (statuses as of 05/19/2022) [facility] of Past illness Narrative* Problem Noted [...] of this encounter (statuses as of 06/14/2022) [facility] of Past illness Narrative* Problem Noted [...] of this encounter (statuses as of 07/05/2022) [facility] of Past illness Narrative* Problem Noted [...] of this encounter (statuses as of 07/22/2022) [facility] of Past illness Narrative* Problem Noted [...] of this encounter (statuses as of 08/01/2022) [facility] of Past illness Narrative* Problem Noted [...] of this encounter (statuses as of 08/15/2022) [facility] of Past illness Narrative* Problem Noted [...] of this encounter (statuses as of 09/07/2022) [facility] of Past illness Narrative* Problem Noted [...] of this encounter (statuses as of 09/15/2022) [facility] History of Past illness Narrative* Problem Noted [...] of this encounter (statuses as of 09/23/2022) [facility] History of Past illness Narrative* Problem Noted [...] of this encounter (statuses as of 09/29/2022) [facility] History of Past illness Narrative* Problem Noted [...] of this encounter (statuses as of 10/16/2022) [facility] History of Past illness Narrative* Problem Noted [...] of this encounter (statuses as of 10/25/2022) [facility] History of Past illness Narrative* Problem Noted [...] of this encounter (statuses as of 11/04/2022) [facility] History of Past illness Narrative* Problem Noted [...] of this encounter (statuses as of 11/08/2022) [facility] History of Past illness Narrative* Problem Noted [...] of this encounter (statuses as of 11/18/2022) [facility] History of Past illness Narrative* Problem Noted [...] of this encounter (statuses as of 11/28/2022) [facility] History of Past illness Narrative* Problem Noted [...] of this encounter (statuses as of 12/19/2022) [facility] History of Past illness Narrative* Problem Noted [...] of this encounter (statuses as of 01/12/2023) [facility] History of Past illness Narrative* Problem Noted [...] of this encounter (statuses as of 01/16/2023) [facility] History of Past illness Narrative* Problem Noted [...] of this encounter (statuses as of 02/07/2023) [facility] History of Past illness Narrative* Problem Noted [...] of this encounter (statuses as of 02/14/2023) [facility] History of Past illness Narrative* Problem Noted [...] of this encounter (statuses as of 03/29/2023) [facility] History of Past illness Narrative* Problem Noted [...] of this encounter (statuses as of 04/20/2023) [facility] History of Past illness Narrative* Problem Noted [...] of this encounter (statuses as of 04/24/2023) [facility] History of Past illness Narrative* Problem Noted [...] of this encounter (statuses as of 05/22/2023) [facility] History of Past illness Narrative* Problem Noted [...] of this encounter (statuses as of 06/28/2023) [facility] History of Past illness Narrative* Problem Noted [...] of this encounter (statuses as of 07/05/2023) [facility] History of Past illness Narrative* Problem Noted [...] of this encounter (statuses as of 07/27/2023) [facility] Diagnosis Essential hypertension- Primary Unspecified [...] 3b CKD (HCC) documented in this encounter [facility] Diagnosis 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- Primary Long-term (current) use of anticoagulants Paroxysmal atrial fibrillation (HCC) Atrial fibrillation documented in this encounter [facility] Diagnosis [facility] (current) use of anticoagulants- Primary Long-term (current) use of anticoagulants Paroxysmal atrial fibrillation (HCC) Atrial fibrillation documented in this encounter [facility] Diagnosis [facility] (current) use of anticoagulants- Primary Long-term (current) use of anticoagulants Paroxysmal atrial fibrillation (HCC) Atrial fibrillation documented in this encounter [facility] Diagnosis 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- Primary Long-term (current) [...] [facility] (current) use of anticoagulants- Primary Long-term (current) use of anticoagulants Paroxysmal atrial fibrillation (HCC) Atrial fibrillation [facility] Diagnosis Benign prostatic hyperplasia without lower urinary tract symptoms Mixed dementia (HCC) Essential hypertension with goal blood pressure less than 140/90 Lung nodule Solitary pulmonary nodule Paroxysmal atrial fibrillation (HCC) [facility]rial [facility] Paroxysmal atrial fibrillation (HCC) [facility] Obesity, Class II, BMI 35-39.9- Primary Obesity, unspecified Paroxysmal atrial fibrillation (HCC) Atrial fibrillation Nonrheumatic aortic valve stenosis Aortic valve disorders Aortic valve disorder Aortic valve disorders [facility] Diagnosis [facility] (current) use of anticoagulants- Primary Long-term (current) use of anticoagulants Paroxysmal atrial fibrillation (HCC) Atrial [facility] Diagnosis Essential hypertension with goal blood pressure less than 140/90 [facility] Diagnosis [facility] (current) use of anticoagulants- Primary Long-term (current) use of anticoagulants Paroxysmal atrial fibrillation (HCC) Atrial fibrillation [facility] Diagnosis Bilateral carotid artery stenosis- Primary Occlusion and stenosis of carotid artery without mention of cerebral infarction [facility] Diagnosis 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- Primary Long-term (current) [...] for COVID-19 vaccine documented [facility] this encounter [facility] Diagnosis Syncope, unspecified syncope type- Primary Aortic valve disorder Aortic valve disorders documented in this encounter [facility] Diagnosis Paroxysmal atrial fibrillation (HCC) Atrial fibrillation Essential hypertension with goal blood pressure less than 140/90 Benign prostatic hyperplasia without lower urinary tract symptoms Mixed dementia (HCC) Lung nodule Solitary pulmonary nodule Type 2 diabetes mellitus with stage 3 chronic kidney disease, without long-term current use of insulin (HCC) documented in this encounter [facility] Diagnosis Essential hypertension with goal blood pressure less than 140/90 documented in this encounter [facility] Diagnosis [facility] (current) use of anticoagulants- Primary Long-term (current) use of anticoagulants Paroxysmal atrial fibrillation (HCC) Atrial fibrillation documented in this encounter [facility] Diagnosis Onychomycosis- Primary Dermatophytosis of nail [...] kidney disease (HCC) documented in this encounter [facility] Diagnosis Renal insufficiency- Primary Unspecified disorder of kidney and ureter documented in this encounter [facility] Diagnosis 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- Primary Long-term (current) use of anticoagulants Paroxysmal atrial fibrillation (HCC) Atrial fibrillation documented in this encounter [facility] Diagnosis [facility] (current) use of anticoagulants- Primary Long-term (current) use of anticoagulants Paroxysmal atrial fibrillation (HCC) Atrial fibrillation documented in this encounter [facility] Diagnosis Abrasion of arm, left, initial encounter- Primary Chronic insomnia Insomnia, unspecified documented in this encounter [facility] Diagnosis Essential hypertension with goal blood pressure less than 140/90 Paroxysmal atrial fibrillation (HCC) Atrial fibrillation documented in this encounter [facility] Diagnosis Lung nodule Solitary pulmonary nodule documented in this encounter [facility] Diagnosis 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- Primary Long-term (current) use of anticoagulants Paroxysmal atrial fibrillation (HCC) Atrial fibrillation documented in this encounter [facility] Diagnosis Syncope, unspecified syncope type- Primary Aortic valve disorder Aortic valve disorders Paroxysmal atrial fibrillation (HCC) Atrial fibrillation Ectatic thoracic aorta (HCC) 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, without long-term current use of insulin ([facility]) documented in this encounter [facility] Diagnosis Essential hypertension- Primary Unspecified [...] or 3b CKD (HCC) Mixed dementia (HCC) 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 Long-term (current) use of anticoagulants Obesity, Class II, BMI 35-39.9 Obesity, unspecified Renal insufficiency Unspecified disorder of kidney and ureter Anemia, unspecified type [facility] Diagnosis 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- Primary Long-term (current) use of anticoagulants Paroxysmal atrial fibrillation (HCC) Atrial fibrillation documented in this encounter [facility] Diagnosis CKD (chronic kidney disease) stage 4, 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/min ([facility])- Primary Chronic kidney disease, Stage IV (severe) Anemia, unspecified type [facility] Diagnosis Essential hypertension- Primary Unspecified [...] Stage IV (severe) documented in this encounter [facility]* Diagnosis [facility] (current) use of anticoagulants- Primary Long-term (current) use of anticoagulants Paroxysmal atrial fibrillation (HCC) Atrial fibrillation [facility] Diagnosis Renal insufficiency Unspecified disorder of kidney and ureter documented in this encounter [facility]* Diagnosis Essential hypertension- Primary Unspecified essential hypertension Hypertensive kidney disease with stage 3 chronic kidney disease, unspecified whether stage 3a or 3b CKD (HCC) Anemia, unspecified type documented in this encounter [facility]* Diagnosis [facility] (current) use of anticoagulants- Primary Long-term (current) use of anticoagulants Paroxysmal atrial fibrillation (HCC) Atrial fibrillation [facility] Diagnosis Blood pressure check- Primary Screening for hypertension Leg swelling Swelling of limb documented [facility] this encounter [facility] Diagnosis Aortic valve stenosis, etiology of cardiac valve disease unspecified- Primary Hypertensive kidney disease with stage 3b chronic kidney disease (HCC) Paroxysmal atrial fibrillation (HCC) Atrial fibrillation Benign prostatic hyperplasia without lower urinary tract symptoms Anemia, unspecified type documented in this encounter [facility]* Diagnosis 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- Primary Long-term (current) use of anticoagulants Paroxysmal atrial fibrillation (HCC) Atrial fibrillation documented in this encounter [facility] Diagnosis Screen for colon cancer- Primary Special screening for malignant neoplasms, colon [facility] Diagnosis 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- Primary Long-term (current) use of anticoagulants Paroxysmal atrial fibrillation (HCC) Atrial fibrillation documented in this encounter [facility] Diagnosis Severe aortic stenosis [I35.0]- Primary Aortic valve disorders Valvular heart disease Endocarditis, valve unspecified, unspecified cause documented in this encounter [facility] Diagnosis Nonrheumatic aortic valve stenosis- Primary [...] unspecified, unspecified cause [facility] Diagnosis Nonrheumatic aortic valve stenosis Aortic valve disorders Valvular heart disease Endocarditis, valve unspecified, unspecified cause [facility] Diagnosis Essential hypertension- Primary Unspecified [...] disease, Stage IV (severe) Mixed dementia (HCC) [facility] (current) use of anticoagulants Long-term (current) use of anticoagulants Need for vaccination Need for prophylactic vaccination and inoculation against unspecified single disease Valvular heart disease Endocarditis, valve unspecified, unspecified cause documented in this encounter [facility] Diagnosis Essential hypertension- Primary Unspecified essential hypertension Valvular heart disease Endocarditis, valve unspecified, unspecified cause documented in this encounter [facility] Diagnosis Paroxysmal atrial fibrillation (HCC)- Primary Atrial fibrillation Aortic valve stenosis, etiology of cardiac valve disease unspecified Valvular heart disease Endocarditis, valve unspecified, unspecified cause documented in this encounter [facility] Diagnosis Nonrheumatic aortic valve stenosis- Primary Aortic valve disorders Paroxysmal atrial fibrillation (HCC) Atrial fibrillation Valvular heart disease Endocarditis, valve unspecified, unspecified cause documented in this encounter [facility] Diagnosis Nonrheumatic aortic valve stenosis Aortic valve disorders Encounter for preprocedural cardiovascular examination Pre-operative cardiovascular examination documented in this encounter [facility] Diagnosis [facility] (current) use of anticoagulants- Primary Long-term (current) use of anticoagulants Paroxysmal atrial fibrillation (HCC) Atrial fibrillation documented in this encounter [facility] Diagnosis Bilateral carotid artery stenosis- Primary Occlusion and stenosis of carotid artery without mention of cerebral infarction History of carotid endarterectomy Other postprocedural status documented in this encounter [facility] Diagnosis 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- Primary Long-term (current) use of anticoagulants Paroxysmal atrial fibrillation (HCC) Atrial fibrillation documented in this encounter [facility]* Diagnosis Hyperlipidemia, mixed- Primary Mixed [...] (HCC) Chronic kidney disease, Stage IV (severe) 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 Long-term (current) use of anticoagulants Obesity, Class II, BMI 35-39.9 Obesity, unspecified Viral conjunctivitis Unspecified diseases of conjunctiva due to viruses Seasonal allergic rhinitis, unspecified trigger Bilateral impacted cerumen Impacted cerumen documented in this encounter [facility]* Diagnosis 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- Primary Long-term (current) use of anticoagulants Paroxysmal atrial fibrillation (HCC) Atrial fibrillation documented in this encounter [facility]* Diagnosis Paroxysmal atrial fibrillation (HCC) Atrial fibrillation documented in this encounter [facility] (narrative)* Outpatient Procedure (Routine) - Pending Review Specialty Diagnoses / Procedures Referred By Anival t Referred To Contact [facility] [place] Diagnoses Bilateral carotid artery stenosis Procedures US CAROTID ARTERIES GRAY VAS LAB DUPLEX SCAN EXTRACRANIAL ART COMPL BI STUDY Alondra Prescott DO [address] [place] [address] [facility] Issue [address] [place] [address] Referral ID Status Reason Start Date Expiration Date Visits Requested Visits Authorized [id number] Pending Review Auto-Generat ed Referral 03/18/2022 03/16/2023 1 1 [facility] for referral (narrative)* Outpatient Procedure (Routine) - Authorized Specialty Diagnoses / Procedures Referred By Contac t Referred To Contact [facility] Diagnoses Nonrheumatic aortic valve stenosis Procedures ECHO ECHO TTHRC R-T 2D W/WOM-MODE COMPL SPEC&COLR Pam Velazco MD [address] [place] [address] Fax: [facility] [address] [place] [address] Referral ID Status Reason Start Date Expiration Date Visits Requested Visits Authorized [id number] Authorized Auto-Generat ed Referral 08/22/2022 08/15/2023 1 1 [facility] for referral (narrative)* Outpatient Procedure (Routine) - Pending Review Specialty Diagnoses / Procedures Referred By Contac t Referred To Contact [facility] Diagnoses Bilateral carotid artery stenosis Procedures US CAROTID ARTERIES GRAY VAS LAB DUPLEX SCAN EXTRACRANIAL ART COMPL BI STUDY Alondra Prescott DO [address] [place] [address] [address] Referral ID Status Reason Start Date Expiration Date Visits Requested Visits Authorized [id number] Pending Review Auto-Generat ed Referral 2 10/04/2023 1 1 [facility] for referral (narrative)* Outpatient Procedure (Routine) - Authorized Specialty Diagnoses / Procedures Referred By Contac t Referred To Contact [facility] Diagnoses Syncope, unspecified syncope type Aortic valve disorder Procedures ECHO ECHO TTHRC R-T 2D W/WOM-MODE COMPL SPEC&COLR Pam Velazco MD [address] [place] [address] Fax: [facility] [address] [place] [address] Referral ID Status Reason Start Date Expiration Date Visits Requested Visits Authorized [id number] Authorized Auto-Generat ed Referral 02/20/2023 02/13/2024 1 1 [facility] for referral (narrative)* Outpatient Procedure (Routine) - Pending Review Specialty Diagnoses / Procedures Referred By Contac t Referred To Contact [facility] [place] Diagnoses Syncope, unspecified syncope type Aortic valve disorder Procedures ECHO ECHO TTHRC R-T 2D W/WOM-MODE COMPL SPEC&COLR D Pam Reddy MD [address], [address] [place] [address] [facility] Issue [address] [place] [address] Referral ID Status Reason Start Date Expiration Date Visits Requested Visits Authorized [id number] Pending Review Auto-Generat ed Referral 04/08/2024 03/25/2025 1 1 * Outpatient Procedure (Routine) - Pending Review Specialty Diagnoses / Procedures Referred By Contac t Referred To Contact [facility] [place] Diagnoses Syncope, unspecified syncope type Aortic valve disorder Paroxysmal atrial fibrillation (HCC) Procedures ECG COMPLETE ECG ROUTINE ECG W/LEAST 12 LDS W/I&R Pam Reddy MD [address], [address] [place] [address] [facility] Issue [address] [place] [address] Referral ID Status Reason Start Date Expiration Date Visits Requested Visits Authorized [id number] Pending Review Auto-Generat ed Referral 03/21/2024 03/21/2025 1 1 [facility] for referral (narrative)* Diagnostic Procedure Only (Routine) - Authorized Specialty Diagnoses / Procedures Referred By Contac t Referred To Contact [facility] Diagnoses Renal insufficiency Procedures US KIDNEY/BLADDER US RETROPERITONEAL REAL TIME W/IMAGE COMPLETE Guanakito Reno MD [address] [place] [address] [place] [address] Referral ID Status Reason Start Date Expiration Date Visits Requested Visits Authorized [id number] Authorized Auto-Generat ed Referral 03/26/2024 04/25/2025 1 1 * Outpatient Procedure (Routine) - Pending Review Specialty Diagnoses / Procedures Referred By Anival aden [facility] Diagnoses History of carotid endarterectomy Procedures US CAROTID ARTERIES GRAY VAS LAB DUPLEX SCAN EXTRACRANIAL ART COMPL BI STUDY Guanakito Reno MD [address] [place] [address] [facility] [address] [place] [address] Referral ID Status Reason Start Date Expiration Date Visits Requested Visits Authorized [id number] Pending Review Auto-Generat ed Referral 03/26/2024 03/26/2025 1 1 [facility] for referral (narrative)* Diagnostic Procedure Only (Routine) - Closed Specialty Diagnoses / Procedures Referred By Anival aden Referred To Contact [facility] Diagnoses Renal insufficiency Procedures US KIDNEY/BLADDER US RETROPERITONEAL REAL TIME W/IMAGE COMPLETE Guanakito Reno MD [address] [place] [address] [place] [address] Referral ID Status Reason Start Date Expiration Date V isits Requested Visits Authorized [id number] Closed Auto-Generate d Referral 03/26/2024 04/25/2025 1 1 [facility] for referral (narrative)* Diagnostic Procedure Only (Routine) - New Request Specialty Diagnoses / Procedures Referred By Anival aden Referred To Contact [facility] Diagnoses Bilateral carotid artery stenosis History of carotid endarterectomy Procedures US CAROTID BILATERAL Laura Iraheta MD [address] [place] [address] [place] [address] Referral ID Status Reason Start Date Expiration Date Visits Requested Visits Authorized [id number] New Request Auto-Generat ed Referral 09/05/2025 1 1 [facility] Summary Purpose Family History No Family History Records Found Relationship Condition Age at Onset Recorded Date/T lillian mother Congestive heart failure Unknown grandfather Cerebrovascular accident (CVA) Unknown Advance Directives No Advanced Directives Records Found Advance Directive Response Recorded Date/ Time Advance Directives No March 06 4:19pm Reason for Referral Specialty Diagnoses / Procedures Referred By Anival t Referred To Contact Diagnoses Mixed dementia (HCC) Guanakito Reno MD [address] [place] [address] Referral ID Status Reason Start Date Expiration Date Visits Re quested Visits Authorized [id number] Closed 1 1 Referral ID Status Reason Start Date Expiration Date Visits Re quested Visits Authorized [id number] Closed 1 1 Specialty Diagnoses / Procedures Referred By Anival t Referred To Contact Podiatry Diagnoses Onychomycosis Procedures CONSULT TO PODIATRY OFFICE/OUTPATIENT [facility] 60-74 MINUTES Guanakito Reno MD [address] [place] [place] [id number] Referral ID Status Reason Start Date Expiration Date Visits Requested Visits Authorized [id number] Pending Review PCP Requested Referral 3 08/13/2024 1 1 Specialty Diagnoses / Procedures Referred By Contac t Referred To Contact Nephrology Diagnoses CKD (chronic kidney disease) stage 4, 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/min ([facility]) Anemia, unspecified type Procedures CONSULT TO NEPHROLOGY OFFICE/OUTPATIENT [facility] 60 MINUTES Guanakito Reno MD [address] [place] [address] Referral ID Status Reason Start Date Expiration Date Visits Requested Visits Authorized [id number] Authorized PCP Requested Referral 04/05/2024 04/05/2025 1 1 Specialty Diagnoses / Procedures Referred By Contac t Referred To Contact Vascular Surgery Diagnoses Stenosis of left carotid artery Procedures CONSULT TO VASCULAR SURGERY OFFICE/OUTPATIENT [facility] MDM 60 MINUTES Josselyn Mayer, CHILDREN'S AIDE.[employer] [address] [place] [address] Laura Iraheta MD [address] [place] [address] Referral ID Status Reason Start Date Expiration Date Visits Requested Visits Authorized [id number] Authorized PCP Requested Referral 07/10/2024 07/10/2025 1 1 Specialty Diagnoses / Procedures Referred By Contac t Referred To Contact Nephrology Diagnoses Chronic kidney disease, unspecified CKD stage Anemia in chronic kidney disease, unspecified CKD stage Procedures CONSULT TO NEPHROLOGY Josselyn Mayer, CHILDREN'S AIDE.[employer] [address] [place] [address] Eladio Remy MD [address] [address] Referral ID Status Reason Start Date Expiration Date Visits Requested Visits Authorized [id number] Ref Not Required PCP Requested Referral 07/10/2024 07/10/2025 1 1 Specialty Diagnoses / Procedures Referred By Contac t Referred To Contact Gerontology Diagnoses Dementia, unspecified dementia severity, unspecified dementia type, unspecified whether behavioral, psychotic, or mood disturbance or anxiety (HCC) Procedures CONSULT TO GERIATRICS OFFICE/OUTPATIENT [facility] 60 MINUTES Josselyn Mayer, CHILDREN'S AIDE.[employer] [address] [place] [address] Referral ID Status Reason Start Date Expiration Date Visits Requested Visits Authorized [id number] Authorized PCP Requested Referral 07/10/2024 07/10/2025 1 1 Specialty Diagnoses / Procedures Referred By Contac t Referred To Contact CT IMAGING Diagnoses Nonrheumatic aortic valve stenosis Encounter for preprocedural cardiovascular examination Procedures CTA CHEST (GATED) WO/W IVCON CT ANGIOGRAPHY CHEST W/CONTRAST/NONCONTRAST Josselyn Mayer, CHILDREN'S AIDE.[employer] [address] [place] [address] [place] [address] Referral ID Status Reason Start Date Expiration Date Visits Requested Visits Authorized [id number] Authorized Auto-Generat ed Referral 07/10/2024 08/09/2025 1 1 Specialty Diagnoses / Procedures Referred By Contac t Referred To Contact CT IMAGING Diagnoses Nonrheumatic aortic valve stenosis Encounter for preprocedural cardiovascular examination Procedures CTA ABD/PEL W IVCON CT ANGIO ABD&PLVIS CNTRST MTRL W/WO CNTRST IMGES Josselyn Mayer L, CHILDREN'S AIDE.[employer] [address] [place] [address] [place] [address] Referral ID Status Reason Start Date Expiration Date Visits Requested Visits Authorized [id number] Authorized Auto-Generat ed Referral 07/10/2024 08/09/2025 1 1 Referral ID Status Reason Start Date Expiration Date V isits Requested Visits Authorized [id number] Closed Auto-Generate d Referral 07/10/2024 08/09/2025 1 1 Referral ID Status Reason Start Date Expiration Date V isits Requested Visits Authorized [id number] Closed Auto-Generate d Referral 07/10/2024 08/09/2025 1 1 Chief Complaint and Reason for Visit Chief Complaint Admit Date RIGHT HUMERUS March 07, 2025 12:49 pm FRACTURE UPPER RIGHT HUMERUS. RX HERE Ale 2024 12:30pm RIGHT HUMERUS May 02, 2025 10:1 1am Room 1 May 02, 2025 10:2 9am Reason for Visit Admit Date Closed fracture of right proximal humeru s March 07, 2025 12:49pm Chief Complaint Admit Date RIGHT HUMERUS March 07, 2025 12:49 pm FRACTURE UPPER RIGHT HUMERUS. RX HERE Ale 2024 12:30pm LABWORK April 17, 2025 5:00a m PRISON LAB WORK April 24, 2025 5: 00am PRISON LAB WORK April 29, 2025 6: 45am PRISON LAB WORK May 01, 2025 5: 15am RIGHT HUMERUS May 02, 2025 10:1 1am Room 1 May 02, 2025 10:2 9am PRISON LAB WORK May 06, 2025 4: 00am PRISON LAB WORK May 08, 2025 5: 00am PRISON LAB WORK May 13, 2025 5: 00am PRISON LAB WORK May 15, 2025 5: 00am PRISON LAB WORK May 20, 2025 4 :00am [...] DATE CREATED AUTHOR 04/06/2018 [facility] DATE CREATED AUTHOR AUTHOR'S ORGANIZ ATION 08/03/2025 [facility] DATE CREATED AUTHOR AUTHOR'S ORGANIZ ATION 08/12/[address] [facility] DATE CREATED AUTHOR AUTHOR'S ORGANIZ ATION 08/16/2025 [facility] Source Comments (unrecognize d section and content) In the event this informatio n is protected by the Federal Confidentiality of Alcohol and Drug Abuse Patient Records regulations: The Federal rules restrict any use of the information to criminally investigate or prosecute any alcohol or drug abuse patient.[facility] the event this information is protected by the Federal Confidentiality of Alcohol and Drug Abuse Patient Records regulations: The Federal rules restrict any use of the information to criminally investigate or prosecute any alcohol or drug abuse patient.[facility] ShawIn the event this information is protected by the Federal Confidentiality of Alcohol and Drug Abuse Patient Records regulations: The Federal rules restrict any use of the information to criminally investigate or prosecute any alcohol or drug abuse patient.[facility] ShawIn the event this information is protected by the Federal Confidentiality of Alcohol and Drug Abuse Patient Records regulations: The Federal rules restrict any use of the information to criminally investigate or prosecute any alcohol or drug abuse patient.[facility] ShawIn the event this information is protected by the Federal Confidentiality of Alcohol and Drug Abuse Patient Records regulations: The Federal rules restrict any use of the information to criminally investigate or prosecute any alcohol or drug abuse patient.[facility] ShawIn the event this information is protected by the Federal Confidentiality of Alcohol and Drug Abuse Patient Records regulations: The Federal rules restrict any use of the information to criminally investigate or prosecute any alcohol or drug abuse patient.[facility] ShawIn the event this information is protected by the Federal Confidentiality of Alcohol and Drug Abuse Patient Records regulations: The Federal rules restrict any use of the information to criminally investigate or prosecute any alcohol or drug abuse patient.[facility] ShawIn the event this information is protected by the Federal Confidentiality of Alcohol and Drug Abuse Patient Records regulations: The Federal rules restrict any use of the information to criminally investigate or prosecute any alcohol or drug abuse patient.[facility] ShawIn the event this information is protected by the Federal Confidentiality of Alcohol and Drug Abuse Patient Records regulations: The Federal rules restrict any use of the information to criminally investigate or prosecute any alcohol or drug abuse patient.[facility] ShawIn the event this information is protected by the Federal Confidentiality of Alcohol and Drug Abuse Patient Records regulations: The Federal rules restrict any use of the information to criminally investigate or prosecute any alcohol or drug abuse patient.[facility] ShawIn the event this information is protected by the Federal Confidentiality of Alcohol and Drug Abuse Patient Records regulations: The Federal rules restrict any use of the information to criminally investigate or prosecute any alcohol or drug abuse patient.[facility] ShawIn the event this information is protected by the Federal Confidentiality of Alcohol and Drug Abuse Patient Records regulations: The Federal rules restrict any use of the information to criminally investigate or prosecute any alcohol or drug abuse patient.[facility] ShawIn the event this information is protected by the Federal Confidentiality of Alcohol and Drug Abuse Patient Records regulations: The Federal rules restrict any use of the information to criminally investigate or prosecute any alcohol or drug abuse patient.[facility] ShawIn the event this information is protected by the Federal Confidentiality of Alcohol and Drug Abuse Patient Records regulations: The Federal rules restrict any use of the information to criminally investigate or prosecute any alcohol or drug abuse patient.[facility] ShawIn the event this information is protected by the Federal Confidentiality of Alcohol and Drug Abuse Patient Records regulations: The Federal rules restrict any use of the information to criminally investigate or prosecute any alcohol or drug abuse patient.[facility] ShawIn the event this information is protected by the Federal Confidentiality of Alcohol and Drug Abuse Patient Records regulations: The Federal rules restrict any use of the information to criminally investigate or prosecute any alcohol or drug abuse patient.[facility] ShawIn the event this information is protected by the Federal Confidentiality of Alcohol and Drug Abuse Patient Records regulations: The Federal rules restrict any use of the information to criminally investigate or prosecute any alcohol or drug abuse patient.[facility] ShawIn the event this information is protected by the Federal Confidentiality of Alcohol and Drug Abuse Patient Records regulations: The Federal rules restrict any use of the information to criminally investigate or prosecute any alcohol or drug abuse patient.[facility] ShawIn the event this information is protected by the Federal Confidentiality of Alcohol and Drug Abuse Patient Records regulations: The Federal rules restrict any use of the information to criminally investigate or prosecute any alcohol or drug abuse patient.[facility] ShawIn the event this information is protected by the Federal Confidentiality of Alcohol and Drug Abuse Patient Records regulations: The Federal rules restrict any use of the information to criminally investigate or prosecute any alcohol or drug abuse patient.[facility] ShawIn the event this information is protected by the Federal Confidentiality of Alcohol and Drug Abuse Patient Records regulations: The Federal rules restrict any use of the information to criminally investigate or prosecute any alcohol or drug abuse patient.[facility] ShawIn the event this information is protected by the Federal Confidentiality of Alcohol and Drug Abuse Patient Records regulations: The Federal rules restrict any use of the information to criminally investigate or prosecute any alcohol or drug abuse patient.[facility] ShawIn the event this information is protected by the Federal Confidentiality of Alcohol and Drug Abuse Patient Records regulations: The Federal rules restrict any use of the information to criminally investigate or prosecute any alcohol or drug abuse patient.[facility] ShawIn the event this information is protected by the Federal Confidentiality of Alcohol and Drug Abuse Patient Records regulations: The Federal rules restrict any use of the information to criminally investigate or prosecute any alcohol or drug abuse patient.[facility] ShawIn the event this information is protected by the Federal Confidentiality of Alcohol and Drug Abuse Patient Records regulations: The Federal rules restrict any use of the information to criminally investigate or prosecute any alcohol or drug abuse patient.[facility] ShawIn the event this information is protected by the Federal Confidentiality of Alcohol and Drug Abuse Patient Records regulations: The Federal rules restrict any use of the information to criminally investigate or prosecute any alcohol or drug abuse patient.[facility] ShawIn the event this information is protected by the Federal Confidentiality of Alcohol and Drug Abuse Patient Records regulations: The Federal rules restrict any use of the information to criminally investigate or prosecute any alcohol or drug abuse patient.[facility] ShawIn the event this information is protected by the Federal Confidentiality of Alcohol and Drug Abuse Patient Records regulations: The Federal rules restrict any use of the information to criminally investigate or prosecute any alcohol or drug abuse patient.[facility] ShawIn the event this information is protected by the Federal Confidentiality of Alcohol and Drug Abuse Patient Records regulations: The Federal rules restrict any use of the information to criminally investigate or prosecute any alcohol or drug abuse patient.[facility] ShawIn the event this information is protected by the Federal Confidentiality of Alcohol and Drug Abuse Patient Records regulations: The Federal rules restrict any use of the information to criminally investigate or prosecute any alcohol or drug abuse patient.[facility] ShawIn the event this information is protected by the Federal Confidentiality of Alcohol and Drug Abuse Patient Records regulations: The Federal rules restrict any use of the information to criminally investigate or prosecute any alcohol or drug abuse patient.[facility] ShawIn the event this information is protected by the Federal Confidentiality of Alcohol and Drug Abuse Patient Records regulations: The Federal rules restrict any use of the information to criminally investigate or prosecute any alcohol or drug abuse patient.[facility] ShawIn the event this information is protected by the Federal Confidentiality of Alcohol and Drug Abuse Patient Records regulations: The Federal rules restrict any use of the information to criminally investigate or prosecute any alcohol or drug abuse patient.[facility] ShawIn the event this information is protected by the Federal Confidentiality of Alcohol and Drug Abuse Patient Records regulations: The Federal rules restrict any use of the information to criminally investigate or prosecute any alcohol or drug abuse patient.[facility] ShawIn the event this information is protected by the Federal Confidentiality of Alcohol and Drug Abuse Patient Records regulations: The Federal rules restrict any use of the information to criminally investigate or prosecute any alcohol or drug abuse patient.[facility] ShawIn the event this information is protected by the Federal Confidentiality of Alcohol and Drug Abuse Patient Records regulations: The Federal rules restrict any use of the information to criminally investigate or prosecute any alcohol or drug abuse patient.[facility] ShawIn the event this information is protected by the Federal Confidentiality of Alcohol and Drug Abuse Patient Records regulations: The Federal rules restrict any use of the information to criminally investigate or prosecute any alcohol or drug abuse patient.[facility] ShawIn the event this information is protected by the Federal Confidentiality of Alcohol and Drug Abuse Patient Records regulations: The Federal rules restrict any use of the information to criminally investigate or prosecute any alcohol or drug abuse patient.[facility] ShawIn the event this information is protected by the Federal Confidentiality of Alcohol and Drug Abuse Patient Records regulations: The Federal rules restrict any use of the information to criminally investigate or prosecute any alcohol or drug abuse patient.[facility] ShawIn the event this information is protected by the Federal Confidentiality of Alcohol and Drug Abuse Patient Records regulations: The Federal rules restrict any use of the information to criminally investigate or prosecute any alcohol or drug abuse patient.[facility] ShawIn the event this information is protected by the Federal Confidentiality of Alcohol and Drug Abuse Patient Records regulations: The Federal rules restrict any use of the information to criminally investigate or prosecute any alcohol or drug abuse patient.[facility] ShawIn the event this information is protected by the Federal Confidentiality of Alcohol and Drug Abuse Patient Records regulations: The Federal rules restrict any use of the information to criminally investigate or prosecute any alcohol or drug abuse patient.[facility] ShawIn the event this information is protected by the Federal Confidentiality of Alcohol and Drug Abuse Patient Records regulations: The Federal rules restrict any use of the information to criminally investigate or prosecute any alcohol or drug abuse patient.[facility] ShawIn the event this information is protected by the Federal Confidentiality of Alcohol and Drug Abuse Patient Records regulations: The Federal rules restrict any use of the information to criminally investigate or prosecute any alcohol or drug abuse patient.[facility] ShawIn the event this information is protected by the Federal Confidentiality of Alcohol and Drug Abuse Patient Records regulations: The Federal rules restrict any use of the information to criminally investigate or prosecute any alcohol or drug abuse patient.[facility] ShawIn the event this information is protected by the Federal Confidentiality of Alcohol and Drug Abuse Patient Records regulations: The Federal rules restrict any use of the information to criminally investigate or prosecute any alcohol or drug abuse patient.[facility] ShawIn the event this information is protected by the Federal Confidentiality of Alcohol and Drug Abuse Patient Records regulations: The Federal rules restrict any use of the information to criminally investigate or prosecute any alcohol or drug abuse patient.[facility] ShawIn the event this information is protected by the Federal Confidentiality of Alcohol and Drug Abuse Patient Records regulations: The Federal rules restrict any use of the information to criminally investigate or prosecute any alcohol or drug abuse patient.[facility] ShawIn the event this information is protected by the Federal Confidentiality of Alcohol and Drug Abuse Patient Records regulations: The Federal rules restrict any use of the information to criminally investigate or prosecute any alcohol or drug abuse patient.[facility] ShawIn the event this information is protected by the Federal Confidentiality of Alcohol and Drug Abuse Patient Records regulations: The Federal rules restrict any use of the information to criminally investigate or prosecute any alcohol or drug abuse patient.[facility] ShawIn the event this information is protected by the Federal Confidentiality of Alcohol and Drug Abuse Patient Records regulations: The Federal rules restrict any use of the information to criminally investigate or prosecute any alcohol or drug abuse patient.[facility] ShawIn the event this information is protected by the Federal Confidentiality of Alcohol and Drug Abuse Patient Records regulations: The Federal rules restrict any use of the information to criminally investigate or prosecute any alcohol or drug abuse patient.[facility] ShawIn the event this information is protected by the Federal Confidentiality of Alcohol and Drug Abuse Patient Records regulations: The Federal rules restrict any use of the information to criminally investigate or prosecute any alcohol or drug abuse patient.[facility] ShawIn the event this information is protected by the Federal Confidentiality of Alcohol and Drug Abuse Patient Records regulations: The Federal rules restrict any use of the information to criminally investigate or prosecute any alcohol or drug abuse patient.[facility] ShawIn the event this information is protected by the Federal Confidentiality of Alcohol and Drug Abuse Patient Records regulations: The Federal rules restrict any use of the information to criminally investigate or prosecute any alcohol or drug abuse patient.[facility] ShawIn the event this information is protected by the Federal Confidentiality of Alcohol and Drug Abuse Patient Records regulations: The Federal rules restrict any use of the information to criminally investigate or prosecute any alcohol or drug abuse patient.[facility], Edwin ShawIn the event this information is protected by the Federal Confidentiality of Alcohol and Drug Abuse Patient Records regulations: The Federal rules restrict any use of the information to criminally investigate or prosecute any alcohol or drug abuse patient.[facility], Edwin ShawIn the event this information is protected by the Federal Confidentiality of Alcohol and Drug Abuse Patient Records regulations: The Federal rules restrict any use of the information to criminally investigate or prosecute any alcohol or drug abuse patient.[facility], Edwin ShawIn the event this information is protected by the Federal Confidentiality of Alcohol and Drug Abuse Patient Records regulations: The Federal rules restrict any use of the information to criminally investigate or prosecute any alcohol or drug abuse patient.[facility], Edwin ShawIn the event this information is protected by the Federal Confidentiality of Alcohol and Drug Abuse Patient Records regulations: The Federal rules restrict any use of the information to criminally investigate or prosecute any alcohol or drug abuse patient.[facility], Edwin ShawIn the event this information is protected by the Federal Confidentiality of Alcohol and Drug Abuse Patient Records regulations: The Federal rules restrict any use of the information to criminally investigate or prosecute any alcohol or drug abuse patient.[facility], Edwin ShawIn the event this information is protected by the Federal Confidentiality of Alcohol and Drug Abuse Patient Records regulations: The Federal rules restrict any use of the information to criminally investigate or prosecute any alcohol or drug abuse patient.[facility], Edwin ShawIn the event this information is protected by the Federal Confidentiality of Alcohol and Drug Abuse Patient Records regulations: The Federal rules restrict any use of the information to criminally investigate or prosecute any alcohol or drug abuse patient.[facility], Edwin ShawIn the event this information is protected by the Federal Confidentiality of Alcohol and Drug Abuse Patient Records regulations: The Federal rules restrict any use of the information to criminally investigate or prosecute any alcohol or drug abuse patient.[facility], Edwin ShawIn the event this information is protected by the Federal Confidentiality of Alcohol and Drug Abuse Patient Records regulations: The Federal rules restrict any use of the information to criminally investigate or prosecute any alcohol or drug abuse patient.[facility], Edwin ShawIn the event this information is protected by the Federal Confidentiality of Alcohol and Drug Abuse Patient Records regulations: The Federal rules restrict any use of the information to criminally investigate or prosecute any alcohol or drug abuse patient.[facility], Edwin ShawIn the event this information is protected by the Federal Confidentiality of Alcohol and Drug Abuse Patient Records regulations: The Federal rules restrict any use of the information to criminally investigate or prosecute any alcohol or drug abuse patient.[facility], Edwin ShawIn the event this information is protected by the Federal Confidentiality of Alcohol and Drug Abuse Patient Records regulations: The Federal rules restrict any use of the information to criminally investigate or prosecute any alcohol or drug abuse patient.[facility], Edwin ShawIn the event this information is protected by the Federal Confidentiality of Alcohol and Drug Abuse Patient Records regulations: The Federal rules restrict any use of the information to criminally investigate or prosecute any alcohol or drug abuse patient.[facility], Edwin ShawIn the event this information is protected by the Federal Confidentiality of Alcohol and Drug Abuse Patient Records regulations: The Federal rules restrict any use of the information to criminally investigate or prosecute any alcohol or drug abuse patient.[facility], Edwin ShawIn the event this information is protected by the Federal Confidentiality of Alcohol and Drug Abuse Patient Records regulations: The Federal rules restrict any use of the information to criminally investigate or prosecute any alcohol or drug abuse patient.[facility], Edwin ShawIn the event this information is protected by the Federal Confidentiality of Alcohol and Drug Abuse Patient Records regulations: The Federal rules restrict any use of the information to criminally investigate or prosecute any alcohol or drug abuse patient.[facility], Edwin ShawIn the event this information is protected by the Federal Confidentiality of Alcohol and Drug Abuse Patient Records regulations: The Federal rules restrict any use of the information to criminally investigate or prosecute any alcohol or drug abuse patient.[facility], Edwin ShawIn the event this information is protected by the Federal Confidentiality of Alcohol and Drug Abuse Patient Records regulations: The Federal rules restrict any use of the information to criminally investigate or prosecute any alcohol or drug abuse patient.[facility], Edwin ShawIn the event this information is protected by the Federal Confidentiality of Alcohol and Drug Abuse Patient Records regulations: The Federal rules restrict any use of the information to criminally investigate or prosecute any alcohol or drug abuse patient.[facility], Edwin ShawIn the event this information is protected by the Federal Confidentiality of Alcohol and Drug Abuse Patient Records regulations: The Federal rules restrict any use of the information to criminally investigate or prosecute any alcohol or drug abuse patient.[facility], Edwin ShawIn the event this information is protected by the Federal Confidentiality of Alcohol and Drug Abuse Patient Records regulations: The Federal rules restrict any use of the information to criminally investigate or prosecute any alcohol or drug abuse patient.[facility], Edwin ShawIn the event this information is protected by the Federal Confidentiality of Alcohol and Drug Abuse Patient Records regulations: The Federal rules restrict any use of the information to criminally investigate or prosecute any alcohol or drug abuse patient.[facility], Edwin ShawIn the event this information is protected by the Federal Confidentiality of Alcohol and Drug Abuse Patient Records regulations: The Federal rules restrict any use of the information to criminally investigate or prosecute any alcohol or drug abuse patient.[facility], Edwin ShawIn the event this information is protected by the Federal Confidentiality of Alcohol and Drug Abuse Patient Records regulations: The Federal rules restrict any use of the information to criminally investigate or prosecute any alcohol or drug abuse patient.[facility], Edwin ShawIn the event this information is protected by the Federal Confidentiality of Alcohol and Drug Abuse Patient Records regulations: The Federal rules restrict any use of the information to criminally investigate or prosecute any alcohol or drug abuse patient.[facility], Edwin ShawIn the event this information is protected by the Federal Confidentiality of Alcohol and Drug Abuse Patient Records regulations: The Federal rules restrict any use of the information to criminally investigate or prosecute any alcohol or drug abuse patient.[facility], Edwin ShawIn the event this information is protected by the Federal Confidentiality of Alcohol and Drug Abuse Patient Records regulations: The Federal rules restrict any use of the information to criminally investigate or prosecute any alcohol or drug abuse patient.[facility], Edwin ShawIn the event this information is protected by the Federal Confidentiality of Alcohol and Drug Abuse Patient Records regulations: The Federal rules restrict any use of the information to criminally investigate or prosecute any alcohol or drug abuse patient.[facility], Edwin ShawIn the event this information is protected by the Federal Confidentiality of Alcohol and Drug Abuse Patient Records regulations: The Federal rules restrict any use of the information to criminally investigate or prosecute any alcohol or drug abuse patient.[facility], Edwin ShawIn the event this information is protected by the Federal Confidentiality of Alcohol and Drug Abuse Patient Records regulations: The Federal rules restrict any use of the information to criminally investigate or prosecute any alcohol or drug abuse patient.[facility], Edwin ShawIn the event this information is protected by the Federal Confidentiality of Alcohol and Drug Abuse Patient Records regulations: The Federal rules restrict any use of the information to criminally investigate or prosecute any alcohol or drug abuse patient.[facility], Edwin ShawIn the event this information is protected by the Federal Confidentiality of Alcohol and Drug Abuse Patient Records regulations: The Federal rules restrict any use of the information to criminally investigate or prosecute any alcohol or drug abuse patient.[facility], Edwin ShawIn the event this information is protected by the Federal Confidentiality of Alcohol and Drug Abuse Patient Records regulations: The Federal rules restrict any use of the information to criminally investigate or prosecute any alcohol or drug abuse patient.[facility], Edwin ShawIn the event this information is protected by the Federal Confidentiality of Alcohol and Drug Abuse Patient Records regulations: The Federal rules restrict any use of the information to criminally investigate or prosecute any alcohol or drug abuse patient.[facility], Edwin ShawIn the event this information is protected by the Federal Confidentiality of Alcohol and Drug Abuse Patient Records regulations: The Federal rules restrict any use of the information to criminally investigate or prosecute any alcohol or drug abuse patient.[facility], Edwin ShawIn the event this information is protected by the Federal Confidentiality of Alcohol and Drug Abuse Patient Records regulations: The Federal rules restrict any use of the information to criminally investigate or prosecute any alcohol or drug abuse patient.[facility], Edwin ShawIn the event this information is protected by the Federal Confidentiality of Alcohol and Drug Abuse Patient Records regulations: The Federal rules restrict any use of the information to criminally investigate or prosecute any alcohol or drug abuse patient.[facility], Edwin ShawIn the event this information is protected by the Federal Confidentiality of Alcohol and Drug Abuse Patient Records regulations: The Federal rules restrict any use of the information to criminally investigate or prosecute any alcohol or drug abuse patient.[facility], Edwin ShawIn the event this information is protected by the Federal Confidentiality of Alcohol and Drug Abuse Patient Records regulations: The Federal rules restrict any use of the information to criminally investigate or prosecute any alcohol or drug abuse patient.[facility], Edwin ShawIn the event this information is protected by the Federal Confidentiality of Alcohol and Drug Abuse Patient Records regulations: The Federal rules restrict any use of the information to criminally investigate or prosecute any alcohol or drug abuse patient.[facility], Edwin ShawIn the event this information is protected by the Federal Confidentiality of Alcohol and Drug Abuse Patient Records regulations: The Federal rules restrict any use of the information to criminally investigate or prosecute any alcohol or drug abuse patient.[facility], Edwin ShawIn the event this information is protected by the Federal Confidentiality of Alcohol and Drug Abuse Patient Records regulations: The Federal rules restrict any use of the information to criminally investigate or prosecute any alcohol or drug abuse patient.[facility], Edwin ShawIn the event this information is protected by the Federal Confidentiality of Alcohol and Drug Abuse Patient Records regulations: The Federal rules restrict any use of the information to criminally investigate or prosecute any alcohol or drug abuse patient.[facility], Edwin ShawIn the event this information is protected by the Federal Confidentiality of Alcohol and Drug Abuse Patient Records regulations: The Federal rules restrict any use of the information to criminally investigate or prosecute any alcohol or drug abuse patient.[facility], Edwin ShawIn the event this information is protected by the Federal Confidentiality of Alcohol and Drug Abuse Patient Records regulations: The Federal rules restrict any use of the information to criminally investigate or prosecute any alcohol or drug abuse patient.[facility], Edwin ShawIn the event this information is protected by the Federal Confidentiality of Alcohol and Drug Abuse Patient Records regulations: The Federal rules restrict any use of the information to criminally investigate or prosecute any alcohol or drug abuse patient.[facility], Edwin ShawIn the event this information is protected by the Federal Confidentiality of Alcohol and Drug Abuse Patient Records regulations: The Federal rules restrict any use of the information to criminally investigate or prosecute any alcohol or drug abuse patient.[facility], Edwin ShawIn the event this information is protected by the Federal Confidentiality of Alcohol and Drug Abuse Patient Records regulations: The Federal rules restrict any use of the information to criminally investigate or prosecute any alcohol or drug abuse patient.[facility], Edwin ShawIn the event this information is protected by the Federal Confidentiality of Alcohol and Drug Abuse Patient Records regulations: The Federal rules restrict any use of the information to criminally investigate or prosecute any alcohol or drug abuse patient.[facility], Edwin ShawIn the event this information is protected by the Federal Confidentiality of Alcohol and Drug Abuse Patient Records regulations: The Federal rules restrict any use of the information to criminally investigate or prosecute any alcohol or drug abuse patient.[facility], Edwin ShawIn the event this information is protected by the Federal Confidentiality of Alcohol and Drug Abuse Patient Records regulations: The Federal rules restrict any use of the information to criminally investigate or prosecute any alcohol or drug abuse patient.[facility], Edwin ShawIn the event this information is protected by the Federal Confidentiality of Alcohol and Drug Abuse Patient Records regulations: The Federal rules restrict any use of the information to criminally investigate or prosecute any alcohol or drug abuse patient.[facility], Edwin ShawIn the event this information is protected by the Federal Confidentiality of Alcohol and Drug Abuse Patient Records regulations: The Federal rules restrict any use of the information to criminally investigate or prosecute any alcohol or drug abuse patient.[facility], Edwin ShawIn the event this information is protected by the Federal Confidentiality of Alcohol and Drug Abuse Patient Records regulations: The Federal rules restrict any use of the information to criminally investigate or prosecute any alcohol or drug abuse patient.[facility], Edwin ShawIn the event this information is protected by the Federal Confidentiality of Alcohol and Drug Abuse Patient Records regulations: The Federal rules restrict any use of the information to criminally investigate or prosecute any alcohol or drug abuse patient.[facility] Reason for Visit (unrecogniz ed section and content) Reason Comments Follow Up Specialty Diagnoses / Procedures Referred By Anival aden Referred To Contact Family Practice / FAMILY MEDICINE Diagnoses Follow up/not seen since 02/2020 Procedures 4C EST Self Corrina Lennon APRN.[employer] [address] [place] [address] Referral ID Status Reason Start Date Expiration Date V isits Requested Visits Authorized [id number] Closed Patient Cleared - INN Insurance Found [...] Date Comments Population Health Navigation Outreach 06/14/2022 [facility] care gaps Reason Onset Date Comments Anticoagulation 06/06/2022 Home INR Reason Onset Date Comments Anticoagulation 2022 INR result Reason Onset Date Comments Refill Request 07/22/2022 Reason Onset Date Comments Anticoagulation Telephone Fu 08/01/2022 Gabrielle e INR Result Reason Comments Consult Specialty Diagnoses / Procedures Referred By Anival aden Referred To Contact Cardiology / CARD ADMIN [facility] Diagnoses Paroxysmal atrial fibrillation (HCC) Nonrheumatic aortic valve stenosis Procedures CONSULT TO CARDIOLOGY OFFICE/OUTPATIENT [facility] MDM 60-74 MINUTES Corrina Lennon APRN.[employer] [address] [place] [address] Card Admin [facility] [address] [place] [address] Referral ID Status Reason Start Date Expiration Date V isits Requested Visits Authorized [id number] Closed PCP Requested Referral 02/28/2022 10/15/2022 1 1 Reason Onset Date Comments [facility] RN 09/07/2022 Medication Ad herence review at [...] e INR Result Reason Onset Date Comments [facility] RN 2023 Medication Ad herence review per request of payer Reason Onset Date Comments Refill Request 07/04/2023 Reason Comments 6 Month Exam Reason Comments Results Reason Onset Date Comments [facility] RN 09/05/2023 Medication Ad herence review per [...] Telephone Fu 03/07/2024 Reason Onset Date Comments [facility] RN 03/08/2024 Medication ad herence and suspected [...] REAL TIME W/IMAGE COMPLETE Guanakito Reno MD [address] [place] [address] [place] [address] Referral ID Status Reason Start Date Expiration Date V isits Requested Visits Authorized [id number] Closed Auto-Generate d Referral 03/26/2024 04/25/2025 1 1 Reason Comments Follow Up htn- ultrasound on k idneys and labs, family worried about falls 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 Edema Bilateral leg [...] 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 Ak [employer] Clerk [address] [place] [address] Referral ID Status Reason Start Date Expiration Date Visits Re quested Visits Authorized [id number] 1 1 Reason Onset Date Comments Anticoagulation [...] e INR Result Reason Comments Faxed to [facility] Reason Onset Date Comments Refill Request 04/08/2025 Reason Comments Patient Question Care Teams (unrecognized sec tion and content) Fiber Optic Technician Relationship Specialty Start Date End Date Guanakito Reno MD [address] [place] [address] PCP - General Family Practice 05/24/18 13, Pharmacist [id number] [facility] [place] [address] Pharmacist Pharmacy 05/31/21 Fiber Optic Technician Relationship Specialty Start Date End Date Guanakito Reno MD [address] [place] [address] PCP - General Family Practice 05/24/18 13, Pharmacist [phone] [facility] [place] [address] Pharmacist Pharmacy 05/31/21 Fiber Optic Technician Relationship Specialty Start Date End Date Guanakito Reno MD [address] [place] [address] PCP - General Family Practice 05/24/18 13, Pharmacist [id number] [facility] [place] [address] Pharmacist Pharmacy 05/31/21 Fiber Optic Technician Relationship Specialty Start Date End Date Guanakito Reno MD [address] [place] [address] PCP - General Family Practice 05/24/18 13, Pharmacist [phone] [facility] [place] [address] Pharmacist Pharmacy 05/31/21 Fiber Optic Technician Relationship Specialty Start Date End Date Guanakito Reno MD [address] [place] [address] PCP - General Family Practice 05/24/18 13, Pharmacist [id number] [facility] [place] [address] Pharmacist Pharmacy 05/31/21 Fiber Optic Technician Relationship Specialty Start Date End Date Guanakito Reno MD [address] [place] [address] PCP - General Family Practice 05/24/18 13, Pharmacist [id number] [facility] [place] [address] Pharmacist Pharmacy 05/31/21 Fiber Optic Technician Relationship Specialty Start Date End Date Guanakito Reno MD [address] [place] [address] PCP - General Family Practice 05/24/18 13, Pharmacist [id number] [place] [address] Pharmacist Pharmacy 05/31/21 Fiber Optic Technician Relationship Specialty Start Date End Date Guanakito Reno MD [address] [place] [address] PCP - General Family Practice 05/24/18 13, Pharmacist [phone] [place] [address] Pharmacist Pharmacy 05/31/21 Fiber Optic Technician Relationship Specialty Start Date End Date Guanakito Reno MD [address] [place] [address] PCP - General Family Practice 05/24/18, Pharmacist [phone] [place] [address] Pharmacist Pharmacy 05/31/21 Fiber Optic Technician Relationship Specialty Start Date End Date Guanakito Reno MD [address] [place] [address] PCP - General Family Medicine 05/24/18, Pharmacist [phone] [place] [address] Pharmacist Pharmacy 05/31/21 Fiber Optic Technician Relationship Specialty Start Date End Date Guanakito Reno MD [address] [place] [address] PCP - General Family Medicine 05/24/18 13, Pharmacist [id number] [place] [address] Pharmacist Pharmacy 05/31/21 Fiber Optic Technician Relationship Specialty Start Date End Date Guanakito Reno MD [address] [place] [address] PCP - General Family Medicine 05/24/18 13, Pharmacist [address] [place] [address] Pharmacist Pharmacy 05/31/21 Fiber Optic Technician Relationship Specialty Start Date End Date Guanakito Reno MD [address] [place] [address] PCP - General Family Medicine 05/24/18 13, Pharmacist [phone] [place] [address] Pharmacist Pharmacy 05/31/21 Fiber Optic Technician Relationship Specialty Start Date End Date Guanakito Reno MD [address] [place] [address] PCP - General Family Medicine 05/24/18 13, Pharmacist [phone] [facility] [place] [address] Pharmacist Pharmacy 05/31/21 Fiber Optic Technician Relationship Specialty Start Date End Date Guanakito Reno MD [address] [place] [address] PCP - General Family Medicine 05/24/18 13, Pharmacist [address] [facility] [place] [address] Pharmacist Pharmacy 05/31/21 Fiber Optic Technician Relationship Specialty Start Date End Date Guanakito Reno MD [address] [place] [address] PCP - General Family Medicine 05/24/18 13, Pharmacist [address] [place] [address] Pharmacist Pharmacy 05/31/21 Fiber Optic Technician Relationship Specialty Start Date End Date Guanakito Reno MD [address] [place] [address] PCP - General Family Medicine 05/24/18 13, Pharmacist [address]74 [facility] [place] [address] Pharmacist Pharmacy 05/31/21 Fiber Optic Technician Relationship Specialty Start Date End Date Guanakito Reno MD [address] [place] [address] PCP - General Family Medicine 05/24/18 13, Pharmacist [phone] [facility] [place] [address] Pharmacist Pharmacy 05/31/21 Fiber Optic Technician Relationship Specialty Start Date End Date Guanakito Reno MD [address] [place] [address] PCP - General Family Medicine 05/24/18 13, Pharmacist [address]25 [facility] [place] [address] Pharmacist Pharmacy 05/31/21 Fiber Optic Technician Relationship Specialty Start Date End Date Guanakito Reno MD [address] [place] [address] PCP - General Family Medicine 05/24/18 13, Pharmacist [address] [facility] [place] [address] Pharmacist Pharmacy 05/31/21 Fiber Optic Technician Relationship Specialty Start Date End Date Guanakito Reno MD [address] [place] [address] PCP - General Family Medicine 05/24/18 13, Pharmacist [address] [facility] [place] [address] Pharmacist Pharmacy 05/31/21 Fiber Optic Technician Relationship Specialty Start Date End Date Guanakito Reno MD [address] [place] [address] PCP - General Family Medicine 05/24/18 13, Pharmacist [phone] [facility] [place] [address] Pharmacist Pharmacy 05/31/21 Fiber Optic Technician Relationship Specialty Start Date End Date Guanakito Reno MD [address] [place] [address] PCP - General Family Medicine 05/24/18 13, Pharmacist [address]22 [facility] [place] [address] Pharmacist Pharmacy 05/31/21 Fiber Optic Technician Relationship Specialty Start Date End Date Guanakito Reno MD [address] [place] [address] PCP - General Family Medicine 05/24/18 13, Pharmacist [address] [place] [address] Pharmacist Pharmacy 05/31/21 Fiber Optic Technician Relationship Specialty Start Date End Date Guanakito Reno MD [address] [place] [address] PCP - General Family Medicine 05/24/18, Pharmacist [address] [place] [address] Pharmacist Pharmacy 05/31/21 Fiber Optic Technician Relationship Specialty Start Date End Date Guanakito Reno MD [address] [place] [address] PCP - General Family Medicine 05/24/18, Pharmacist [address] [place] [address] Pharmacist Pharmacy 05/31/21 Fiber Optic Technician Relationship Specialty Start Date End Date Guanakito Reno MD [address] [place] [address] PCP - General Family Medicine 05/24/18, Pharmacist [address] [place] [address] Pharmacist Pharmacy 05/31/21 Fiber Optic Technician Relationship Specialty Start Date End Date Guanakito Reno MD [address] [place] [address] PCP - General Family Medicine 05/24/18 13, Pharmacist [address] [place] [address] Pharmacist Pharmacy 05/31/21 Fiber Optic Technician Relationship Specialty Start Date End Date Guanakito Reno MD [address] [place] [address] PCP - General Family Medicine 05/24/18 13, Pharmacist [address] [place] [address] Pharmacist Pharmacy 05/31/21 Fiber Optic Technician Relationship Specialty Start Date End Date Guanakito Reno MD [address] [place] [address] PCP - General Family Medicine 05/24/18 13, Pharmacist [address] [place] [address] Pharmacist Pharmacy 05/31/21 Fiber Optic Technician Relationship Specialty Start Date End Date Guanakito Reno MD [address] [place] [address] PCP - General Family Medicine 05/24/18 13, Pharmacist [address] [place] [address] Pharmacist Pharmacy 05/31/21 Fiber Optic Technician Relationship Specialty Start Date End Date Guanakito Reno MD [address] [place] [address] PCP - General Family Medicine 05/24/18 13, Pharmacist [address] [place] [address] Pharmacist Pharmacy 05/31/21 Fiber Optic Technician Relationship Specialty Start Date End Date Guanakito Reno MD [address] [place] [address] PCP - General Family Medicine 05/24/18 13, Pharmacist [address] [place] [address] Pharmacist Pharmacy 05/31/21 Fiber Optic Technician Relationship Specialty Start Date End Date Guanakito Reno MD [address] [place] [address] PCP - General Family Medicine 05/24/18 13, Pharmacist [address] [place] [address] Pharmacist Pharmacy 05/31/21 Fiber Optic Technician Relationship Specialty Start Date End Date Guanakito Reno MD [address] [place] [address] PCP - General Family Medicine 05/24/18 13, Pharmacist [address] [place] [address] Pharmacist Pharmacy 05/31/21 Fiber Optic Technician Relationship Specialty Start Date End Date Guanakito Reno MD [address] [place] [address] PCP - General Family Medicine 05/24/18 13, Pharmacist [address] [place] [address] Pharmacist Pharmacy 05/31/21 Fiber Optic Technician Relationship Specialty Start Date End Date Guanakito Reno MD [address] [place] [address] PCP - General Family Medicine 05/24/18 13, Pharmacist [address] [place] [address] Pharmacist Pharmacy 05/31/21 Fiber Optic Technician Relationship Specialty Start Date End Date Guanakito Reno MD [address] [place] [address] PCP - General Family Medicine 05/24/18 13, Pharmacist [address] [place] [address] Pharmacist Pharmacy 05/31/21 Fiber Optic Technician Relationship Specialty Start Date End Date Guanakito Reno MD [address] [place] [address] PCP - General Family Medicine 05/24/18 13, Pharmacist [address] [place] [address] Pharmacist Pharmacy 05/31/21 Fiber Optic Technician Relationship Specialty Start Date End Date Guanakito Reno MD [address] [place] [address] PCP - General Family Medicine 05/24/18 13, Pharmacist [address] [place] [address] Pharmacist Pharmacy 05/31/21 Fiber Optic Technician Relationship Specialty Start Date End Date Guanakito Reno MD [address] [place] [address] PCP - General Family Medicine 05/24/18 13, Pharmacist [address] [place] [address] Pharmacist Pharmacy 05/31/21 Fiber Optic Technician Relationship Specialty Start Date End Date Guanakito Reno MD [address] [place] [address] PCP - General Family Medicine 05/24/18 13, Pharmacist [address] [place] [address] Pharmacist Pharmacy 05/31/21 Fiber Optic Technician Relationship Specialty Start Date End Date Guanakito Reno MD [address] [place] [address] PCP - General Family Medicine 05/24/18 13, Pharmacist [address]68 [facility] [place] [address] Pharmacist Pharmacy 05/31/21 Fiber Optic Technician Relationship Specialty Start Date End Date Guanakito Reno MD [address] [place] [address] PCP - General Family Medicine 05/24/18 13, Pharmacist [address] [place] [address] Pharmacist Pharmacy 05/31/21 Fiber Optic Technician Relationship Specialty Start Date End Date Guanakito Reno MD [address] [place] [address] PCP - General Family Medicine 05/24/18 13, Pharmacist [address] [place] [address] Pharmacist Pharmacy 05/31/21 Fiber Optic Technician Relationship Specialty Start Date End Date Guanakito Reno MD [address] [place] [address] PCP - General Family Medicine 05/24/18, Pharmacist [address] [place] [address] Pharmacist Pharmacy 05/31/21 Fiber Optic Technician Relationship Specialty Start Date End Date Guanakito Reno MD [address] [place] [address] PCP - General Family Medicine 05/24/18 13, Pharmacist [address] [place] [address] Pharmacist Pharmacy 05/31/21 Fiber Optic Technician Relationship Specialty Start Date End Date Guanakito Reno MD [address] [place] [address] PCP - General Family Medicine 05/24/18, Pharmacist [address] [place] [address] Pharmacist Pharmacy 05/31/21 Fiber Optic Technician Relationship Specialty Start Date End Date Guanakito Reno MD [address] [place] [address] PCP - General Family Medicine 05/24/18 13, Pharmacist [address] [place] [address] Pharmacist Pharmacy 05/31/21 Fiber Optic Technician Relationship Specialty Start Date End Date Guanakito Reno MD [address] [place] [address] PCP - General Family Medicine 05/24/18 13, Pharmacist [address]11 [facility] [place] [address] Pharmacist Pharmacy 05/31/21 Fiber Optic Technician Relationship Specialty Start Date End Date Guanakito Reno MD [address] [place] [address] PCP - General Family Medicine 05/24/18, Pharmacist [address]82 [facility] [place] [address] Pharmacist Pharmacy 05/31/21 Fiber Optic Technician Relationship Specialty Start Date End Date Guanakito Reno MD [address] [place] [address] PCP - General Family Medicine 05/24/18, Pharmacist [address]147 [facility] [place] [address] Pharmacist Pharmacy 05/31/21 Corrina Lennon APRN.[employer] [address] [place] [address] Pharmacy District Manager Family [facility] 09/23/24 Carolina Landeros CHILDREN'S AIDE.[employer] [address] [place] [address] Pharmacy District Manager Family Medicine 09/23/24 Fiber Optic Technician Relationship Specialty Start Date End Date Guanakito Reno MD [address] [place] [address] PCP - General Family Medicine 05/24/18 13, Pharmacist [address]95 [facility] [place] [address] Pharmacist Pharmacy 05/31/21 Corrina Lennon APRN.[employer] [address] [place] [address] Pharmacy District Manager Family Medicine 09/23/24 Carolina Landeros APRN.[employer] [address] [facility] [place] [address] Pharmacy District Manager [facility] 09/23/24 Fiber Optic Technician Relationship Specialty Start Date End Date Guanakito Reno MD [address] [place] [address] PCP - General Family Medicine 05/24/18 13, Pharmacist [address] [place] [address] Pharmacist Pharmacy 05/31/21 Corrina Lennon APRN.[employer] [address] [place] [address] [facility] 09/[facility]/24 Carolina Landeros APRN.[employer] [address] [place] [address] [facility] 09/23/24 Fiber Optic Technician Relationship Specialty Start Date End Date Guanakito Reno MD [address] [place] [address] PCP - General Family Medicine 05/24/18 13, Pharmacist [address] [place] [address] Pharmacist Pharmacy 05/31/21 Corrina Lennon APRN.[employer] [address] [facility] [place] [address] Pharmacy District Manager Family Medicine 09/23/24 Carolina Landeros APRN.[employer] [address] [place] [address] Pharmacy District Manager Family Medicine 09/23/24 Fiber Optic Technician Relationship Specialty Start Date End Date Guanakito Reno MD [address] [place] [address] PCP - General Family Medicine 05/24/18 13, Pharmacist [address] [facility] [place] [address] Pharmacist Pharmacy 05/31/21 Corrina Lennon CHILDREN'S AIDE.[employer] [address] [facility] [place] [address] Pharmacy District Manager Family Medicine 09/23/24 Carolina Landeros CHILDREN'S AIDE.[employer] [address] [place] [address] [facility] 09/23/24 Fiber Optic Technician Relationship Specialty Start Date End Date Guanakito Reno MD [address] [place] [address] PCP - General Family Medicine 05/24/18 13, Pharmacist [address]76 [facility] [place] [address] Pharmacist Pharmacy 05/31/21 Corrina Lennon CHILDREN'S AIDE.[employer] [address] [facility] [place] [address] Pharmacy District Manager Family Medicine 09/23/24 Carolina Landeros CHILDREN'S AIDE.[employer] [address] [place] [address] Pharmacy District Manager Family Medicine 09/23/24 Fiber Optic Technician Relationship Specialty Start Date End Date Guanakito Reno MD [address] [place] [address] PCP - General Family Medicine 05/24/18 13, Pharmacist [address] [place] [address] Pharmacist Pharmacy 05/31/21 Corrina Lennon APRN.[employer] [address] [facility] [place] [address] Pharmacy District Manager Family [facility] 09/23/24 Carolina Landeros CHILDREN'S AIDE.[employer] [address] [place] [address] [facility] 09/23/24 Fiber Optic Technician Relationship Specialty Start Date End Date Guanakito Reno MD [address] [place] [address] PCP - General Family Medicine 05/24/18 13, Pharmacist [address] [place] [address] Pharmacist Pharmacy 05/31/21 Corrina Lennon APRN.[employer] [address] [place] [address] [facility] 09/23/24 Carolina Landeros CHILDREN'S AIDE.[employer] [address] [place] [address] [facility] 09/23/24 Fiber Optic Technician Relationship Specialty Start Date End Date Guanakito Reno MD [address] [place] [address] PCP - General Family Medicine 05/24/18 13, Pharmacist [address] [facility] [place] [address] Pharmacist Pharmacy 05/31/21 Corrina Lennon APRN.[employer] [address] [place] [address] Pharmacy District Manager Family Medicine 09/23/24 Carolina Landeros APRN.[employer] [address] [place] [address] Pharmacy District Manager Family Medicine 09/23/24 Fiber Optic Technician Relationship Specialty Start Date End Date Guanakito Reno MD [address] [place] [address] PCP - General Family Medicine 05/24/18 13, Pharmacist [address]23 [place] [address] Pharmacist Pharmacy 05/31/21 Corrina Lennon APRN.[employer] [address] [facility] [place] [address] [facility] 09/23/24 Carolina Landeros APRN.[employer] [address] [place] [address] [facility] 09/23/24 Fiber Optic Technician Relationship Specialty Start Date End Date Guanakito Reno MD [address] [place] [address] PCP - General Family Medicine 05/24/18 13, Pharmacist 11788 [facility] [place] [address] Pharmacist Pharmacy 05/31/21 Corrina Lennon APRN.[employer] [address] [facility] [place] [address] [facility] Family Medicine 09/23/24 Carolina Landeros APRN.[employer] [address] [place] [address] [facility] 09/23/24 Fiber Optic Technician Relationship Specialty Start Date End Date Guanakito Reno MD [address] [place], [place] [address] PCP - General Family Medicine 05/24/18 13, Pharmacist [address] [facility] [place] [address] Pharmacist Pharmacy 05/31/21 Corrina Lennon, CHILDREN'S AIDE.[employer] [address] [facility], [place] [address] [facility] 09/23/24 Carolina Landeros, CHILDREN'S AIDE.[employer] [address] [facility], [place] [address] [facility] 09/23/24 Team Status: Active Member Role/Relationship [...] BE BASED ON THE PRIMARY CLINICAL RECORDS. [facility] [employer] provides no warranty or guarantee of the accuracy or completeness of information in this document.
[2025-08-19 09:00] LABS: Prothrombin Time (Protime)PT. 20.1 SECONDS (11.7-14.9)
== END ==
LOC: OLS.SW 05:00
PROVIDERS: PCP Family Medicine; Visit Provider Family Medicine
DX: I48.91 Unspecified atrial fibrillation (principal)
CPT/HCPCS: 36415; 85610

== ENCOUNTER → 2025-08-26 05:00 | Outpatient (REF) | payer MEDICARE, SELFPAY ==
--- OUTSIDE RECORDS SUMMARY | 2025-08-26 04:16 | XMS RPT_ITS | CCD ---
Author Organization [facility] Care Team Providers Care Boring And Filling Machine Operator Name Role Phone VIPIN CARDONA Unavailable Unavailable [...] Guanakito Reno MD Primary Care Provider Haagen STONE BANKER.ELECTRICIAN SHIP, Corrina Unavailable Suppan STONE BANKER.ELECTRICIAN SHIP, Carolina A Unavailable Suppan STONE BANKER.ELECTRICIAN SHIP, Carolina A Unavailable Dr. Guanakito Reno MD [...] ilable SHADIA, GUANAKITO J Primary Care Unavailable [place]osedale, Guanakito Referring Unavailable Mollison, Josafat Attending Unavailable Shadia, Guanakito Primary Care Unavailable [place], Guanakito Referring Unavailable David Navarrete Attending Unavailable [place], Guanakito Primary Care Unavailable Burt Zamora Attending Unavailable Shadia, Guanakito Primary Care Unavailable Mollison, Josafat Referring Unavailable Mollison, Josafat Attending Unavailable Shadia, Guanakito Primary Care Unavailable Alfred ORTEZ, Josafat Attending Unavailable Shadia, Guanakito Primary Care Unavailable Alfred ORTEZ, Josafat Attending Unavailable [place]osedale, Guanakito Primary Care Unavailable Josafat Oliva Attending Unavailable Shadia, Guanakito Primary Care Unavailable [place], Guanakito Primary Care Unavailable Josafat Oliva Attending Unavailable Bianka Olivera Attending Unavailable Shadia, Guanakito Primary Care Unavailable Josafat Oliva Attending Unavailable Shadia, Guanakito Primary Care Unavailable Alfred ORTEZ, Josafat Attending Unavailable Shadia, Guanakito Primary Care Unavailable Leylaa Bianka ORTEZ Attending Unavailable [place]osedale, Guanakito Primary Care Unavailable Josafat Oliva Attending Unavailable Shadia, Guanakito Primary Care Unavailable Josafat Oliva Attending Unavailable [place], Guanakito Primary Care Unavailable Alfred ORTEZ, Josafat Attending Unavailable [place], Guanakito Primary Care Unavailable [place], Guanakito Primary Care Unavailable Alfred ORTEZ, Josafat Attending Unavailable Alfred ORTEZ, Josafat Attending Unavailable Shadia, Guanakito Primary Care Unavailable Josafat Oliva Referring Unavailable Josafat Oliva Attending Unavailable [place], Guanakito Primary Care Unavailable Josafat Oliva Attending Unavailable Shadia, Guanakito Primary Care Unavailable Josafat Oliva Attending Unavailable Josafat Oliva Referring Unavailable Shadia, Guanakito Primary Care Unavailable Josafat Oliva Attending Unavailable Shadia, Guanakito Primary Care Unavailable Josafat Oliva Attending Unavailable Shadia, Guanakito Primary Care Unavailable Josafat Oliva Attending Unavailable Shadia, Guanakito Primary Care Unavailable Josafat Oliva Referring Unavailable Josafat Oliva Attending Unavailable [place], Guanakito Primary Care Unavailable Allergies Allergy Classification Reported Allergen(s) Allergy Type Date of Onset Reaction(s) Facility (4 sources) Environmental Allergies: Uncoded; Translations: [Environmental Allergies: Uncoded] Allergy to substance [facility] Medications Current Medications Medication Drug Class(es) [...] hydrochloride 10 mg oral tablet (20 sources) C-rkoxvz-H-aspart ate Receptor Antagonist Start: 08-21-2019 End: 01-21-2025 [...] 4 11-11-2016 Chronic Other aftercare (2 sources) correction (current) use of anticoagulants; Translations: [correction (current) use of anticoagulants] Onset: 0 Episodic Other aftercare (1 source) Other halfway (current) drug therapy; Translations: [Other intermediate project manager (current) drug therapy] Onset: 5 Episodic Other [...] sources) Long-term current use of anticoagulant; Translations: [correction (current) use of anticoagulants] Onset: 02-04-2020 02-04-2020 [...] Coag (PPP) [Relative time] 1.7 {INR} Normal [facility] Comment on above: Order Comment: 317.1 Performed By: #### L 300.3900 #### [facility] [address] [place], [address] PT Coag (PPP) [Time] 20.1 s High 11.7-14.9 [facility] Comment on above: Order Comment: 317.1 Performed By: #### L 300.3900 #### [facility] [address] [place], [address] Protime w/INR Fingerstickon 08-14-2025 INR Coag (PPP) [Relative time] 1.9 {INR} Normal [facility] Comment on above: Result Comment: Crit ical Value > 4.0 Performed By: #### L 300.3900 #### [facility] [address] [place], [place], [address] Protime Coagsen 21.4 SEC High 11.7-14.9 [facility] Comment on above: Performed By: #### L 300.3900 #### [facility] [address] [place], [address] CNPNon 08-11-2025 CNPN Telephone (AGVASACC) -------- CAL MITCHELL ([id number]) 1945 M Date Time Provider Department 08/11/25 LAURA IRAHETA AGVASACC During your visit today, we recorded the following information about you: Jimmy Kwon 08/11/2025 10:52 AM Signed Annual f/u - Bilateral carotid artery stenosis, hx of carotid endarterectomy - US PRIOR Spoke w/daughter first - stated he was now a resident of [facility]. Updated pt's demographics with new info/ph numbers. Transferred to and left detailed VM with [place]'s event coordinatorYanci (schedule's resident's appts) to schedule pt's US w/CS then OV with us. Allergies As of Date: 08/11/2025 (No Known Allergies) Date Reviewed: 03/05/2025 Reviewed by: Jack Holcomb, BENJIE - Fully Assessed Reason for Visit: Appointment [...] Insulin: No - Lancets (ONE TOUCH DELICA) [facility] lancets Test blood sugar(s) one time daily. [...] stenosis of unspecified carotid a*10/25/2013 03/26/2024 Frequency [[id number]] 02/11/2016 03/26/2024 BPH (benign prostatic hypertrophy) with [...] Hypertensive kidney disease with stage 3 chroni*01/29/2020 correction (current) use of anticoagulants [Z79.*02/04/2020 Dementia, vascular, [...] by JIMMY KWON on 08/11/25 [facility] CNPNon 08-01-2025 [facility] Tele[facility] (FAMPWS) -------- CAL MITCHELL ([id number]) 1945 M Date Time Provider Department 08/01/25 GUANAKITO [facility] During your visit today, we recorded the following information about you: Olivia Heredia, BENJIE 08/01/2025 10:33 AM Signed Patient's son Gustavo calling in asking for advise from Dr. Reno, for patient. Gustavo states patient is now receiving intermediate project manager care at [facility] and his care is being managed by [...] 3 years, if needed? Please advise sonGustavo. [phone] Guanakito Reno MD 08/01/2025 11:00 AM Signed [...] Fully Assessed Reason for Visit: Patient Question [8817] Prescriptions as of 08/01/2025 - warfarin (COUMADIN) [...] Insulin: No - Lancets (ONE TOUCH DELICA) [facility] lancets Test blood sugar(s) one time daily. 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 Normal [facility] Prothrombin Time w/INRon INR Coag (PPP) [Relative time] 2.0 {INR} Normal [facility] Comment on above: Order Comment: 317.1 Performed By: #### L 300.3900 #### [facility] [address] [place], [address] PT Coag (PPP) [Time] 22.7 s High 11.7-14.9 [facility] Comment on above: Order Comment: 317.1 Performed By: #### L 300.3900 #### [facility] [address] [place], [address] Protime w/INR Fingerstickon 07-17-2025 INR Coag (PPP) [Relative time] 2.0 {INR} Normal [facility] Comment on above: Result Comment: Crit ical Value > 4.0 Performed By: #### L 300.3900 #### [facility] [address] [place], [address] Protime Coagsen 22.3 SEC High 11.7-14.9 [facility] Comment on above: Performed By: #### L 300.3900 #### [facility] [address] [place], [address] Prothrombin Time w/INRon INR Coag (PPP) [Relative time] 2.0 {INR} Normal [facility] Comment on above: Order Comment: 317.1 Performed By: #### L 300.3900 #### [facility] [address] [place], [address] PT Coag (PPP) [Time] 22.8 s High 11.7-14.9 [facility] Comment on above: Order Comment: 317.1 Performed By: #### L 300.3900 #### [facility] [address] [place], [address] Prothrombin Time w/INRon INR Coag (PPP) [Relative time] 2.1 {INR} Normal [facility] Comment on above: Performed By: #### L 300.3900 #### [facility] [address] [place], [address] PT Coag (PPP) [Time] 24.2 s High 11.7-14.9 [facility] Comment on above: Performed By: #### L 300.3900 #### [facility] [address] [place], [address] Protime w/INR Fingerstickon 06-17-2025 INR Coag (PPP) [Relative time] 2.1 {INR} Normal [facility] Comment on above: Result Comment: Crit ical Value > 4.0 Performed By: #### L 9200.0000 #### [facility] [address] [place], [address] Protime Coagsen 22.8 SEC High 11.7-14.9 [facility] Comment on above: Performed By: #### L 9200.0000 #### [facility] [address] [place], [address] Prothrombin Time w/INRon INR Coag (PPP) [Relative time] 1.9 {INR} Normal [facility] Comment on above: Order Comment: 317.1 Performed By: #### L 300.3900 #### [facility] [address] [place], [address] PT Coag (PPP) [Time] 22.4 s High 11.7-14.9 [facility] Comment on above: Order Comment: 317.1 Performed By: #### L 300.3900 #### [facility] [address] [place], [address] Prothrombin Time w/INRon INR Normal [facility] Comment on above: Result Comment: PLEA SE SEE 28:CG18 Performed By: #### L 300.3900 #### [facility] [address] [place], [address] PROTIME Normal 11.7-14.9 [facility] Comment on above: Result Comment: PLEA SE SEE [id number]:CG18 Performed By: #### L 300.3900 #### [facility] [address] [place], [address] International normalized rat io (INR) calculationOrdered By: Josafat Simon on 06-03-2025 INR Coag (Bld) [Relative time] 3.0 {INR} [facility] Prothrombin Time w/INRon INR Coag (PPP) [Relative time] 3.0 {INR} Normal [facility] Comment on above: Order Comment: 317.1 Performed By: #### L 300.3900 #### [facility] [address] [place], [address] PT Coag (PPP) [Time] 31.4 s High 11.7-14.9 [facility] Comment on above: Order Comment: 317.1 Performed By: #### L 300.3900 #### [facility] [address] [place], [address] Prothrombin timeOrdered By: Josafat Simon on 06-03-2025 PT Coag (PPP) [Time] 31.4 s High 11.7-14.9 [facility] International normalized rat io (INR) measurement by fingerstickOrdered By: Josafat Simon on 05-27-2025 INR Coag (BldC) [Relative time] 2.3 [facility] Comment on above: Critical Value > 4.0 Protime w/INR Fingerstickon 05-27-2025 INR Coag (PPP) [Relative time] 2.3 {INR} Normal [facility] Comment on above: Result Comment: Crit ical Value > 4.0 Performed By: #### L 300.3900 #### [facility] [address] [place], [address] Protime Coagsen 24.6 SEC High 11.7-14.9 [facility] Comment on above: Performed By: #### L 300.3900 #### [facility] [address] [place], [address] Whole blood prothrombin time Ordered By: Josafat Simon on 05-27-2025 PT Coag (Bld) [Time] 24.6 s High 11.7-14.9 [facility] International normalized rat io (INR) measurement by fingerstickOrdered By: Josafat Simon on 05-20-2025 INR Coag (BldC) [Relative time] 2.7 [facility] Comment on above: Critical Value > 4.0 Protime w/INR Fingerstickon 05-20-2025 INR Coag (PPP) [Relative time] 2.7 {INR} Normal [facility] Comment on above: Result Comment: Crit ical Value > 4.0 Performed By: #### L 300.3900 #### [facility] [address] [place], [address] Protime Coagsen 28.2 SEC High 11.7-14.9 [facility] Comment on above: Performed By: #### L 300.3900 #### [facility] [address] [place], [address] Whole blood prothrombin time Ordered By: Josafat Simon on 05-20-2025 PT Coag (Bld) [Time] 28.2 s High 11.7-14.9 [facility] International normalized rat io (INR) calculationOrdered By: Josafat Simon on 05-15-2025 INR Coag (Bld) [Relative time] 2.3 {INR} [facility] Prothrombin Time w/INRon INR Coag (PPP) [Relative time] 2.3 {INR} Normal [facility] Comment on above: Order Comment: 317.1 Performed By: #### L 300.3900 #### [facility] [address] [place], [address] Prothrombin timeOrdered By: Josafat Simon on 05-15-2025 PT Coag (PPP) [Time] 25.3 s High 11.7-14.9 [facility] Comment on above: Order Comment: 317.1 Performed By: #### L 300.3900 #### [facility] [address] [place], [address] International normalized rat io (INR) calculationOrdered By: Josafat Simon on 05-13-2025 INR Coag (Bld) [Relative time] 1.7 {INR} [facility] Prothrombin Time w/INRon INR Coag (PPP) [Relative time] 1.7 {INR} Normal [facility] Comment on above: Order Comment: 317.1 Performed By: #### L 300.3900 #### [facility] [address] [place], [address] PT Coag (PPP) [Time] 20.6 s High 11.7-14.9 [facility] Comment on above: Order Comment: 317.1 Performed By: #### L 300.3900 #### [facility] [address] [place], [address] ([address] Prothrombin timeOrdered By: Josafat Simon on 05-13-2025 PT Coag (PPP) [Time] 20.6 s High 11.7-14.9 [facility] International normalized rat io (INR) calculationOrdered By: Josafat Simon on 05-08-2025 INR Coag (Bld) [Relative time] 3.2 {INR} [facility] Prothrombin Time w/INRon INR Coag (PPP) [Relative time] 3.2 {INR} Normal [facility] Comment on above: Order Comment: 317.1 Performed By: #### L 300.3900 #### [facility] [address] [place], [address] PT Coag (PPP) [Time] 33.1 s High 11.7-14.9 [facility] Comment on above: Order Comment: 317.1 Performed By: #### L 300.3900 #### [facility] [address] [place], [address] Prothrombin timeOrdered By: Josafat Simon on 05-08-2025 PT Coag (PPP) [Time] 33.1 s High 11.7-14.9 [facility] International normalized rat io (INR) calculationOrdered By: Josafat Simon on 05-06-2025 INR Coag (Bld) [Relative time] 4.1 {INR} High [facility] Comment on above: CRITICAL VALUE ZABALA D TO IRMA SOLOMON [facility]05/06/25 0801 Travis Yost.RESULTS READ BACK BY SAME. Prothrombin Time w/INRon INR Coag (PPP) [Relative time] 4.1 {INR} Invalid Interpretation Code [facility] Comment on above: Order Comment: FINGE RSTICK CONFIRMATION Result Comment: CRIT ICAL VALUE CALLED TO IRMA SOLOMON ([facility] 05/06/25 0801 Travis Yost. RESULTS READ BACK BY SAME. Performed By: #### L 300.3900 #### [facility] [address] [place], [address] PT Coag (PPP) [Time] 40.8 s High 11.7-14.9 [facility] Comment on above: Order Comment: FINGE RSTICK CONFIRMATION Performed By: #### L 300.3900 #### [facility] [address] [place], [address] Prothrombin timeOrdered By: Josafat Simon on 05-06-2025 PT Coag (PPP) [Time] 40.8 s High 11.7-14.9 [facility] Protime w/INR Fingerstickon 05-06-2025 INR Coag (PPP) [Relative time] 4.3 {INR} Invalid Interpretation Code [facility] Comment on above: Result Comment: Crit ical Value > 4.0 Performed By: #### L 300.3900 #### [facility] [address] [place], [place], [address] Protime Coagsen 42.3 SEC High 11.7-14.9 [facility] Comment on above: Performed By: #### L 300.3900 #### [facility] [address] [place], [place], [address] Whole blood prothrombin time Ordered By: Josafat Simon on 05-06-2025 PT Coag (Bld) [Time] 42.3 s High 11.7-14.9 [facility] Orthopedic Visit Reporton Orthopedic Visit Report [facility] [address] [place] [address] [address] [place], [place] [address] OFFICE VISIT Date of Service: 05/02/25 MR#: [id number] Acct: [id number] Name: CAL MITCHELL Rep #: [id number] : 1945 Provider: Dr. David granados DO Age/Sex: 79/M Location: [facility] Status: Signed Intake Vital Signs 03/07/25 12:57 [...] History acetaminophen 650 mg rectal 650 mg NV Q4H PRN 05/02/25 5 History suppository aluminum-mag hydroxide-simethicone 30 ml PO Q4H PRN 05/02/25 History 200 mg-200 mg-20 mg/5 mL oral susp (Antacid) bisacodyl 10 mg rectal suppository 10 mg NV QDAY PRN 05/02/2505/02 History (Dulcolax (bisacodyl)) dextrose [...] hr sodium phosphates 19 gram-7 118 ml NV ONCE PRN 05/02/25 History gram/118 mL enema [...] made by me, Dr. David Navarrete, DO 05/02/25810. Part of today???s visit was documented by [...] is here today with his son and vmmdsnha-to-ftp. Usually ambulates with a walker or a cane. Had a fall. Was mainly complaining about pain to the upper extremity was seen in a peripheral hospital referred here given a sling they found approximately wrist fracture on the right side. The patient does not speak very much but he converses overall well he is iazkt-qzle-xwgfmtoj fairly stoic. Plan:79-year-old man with a (more content not included)... Normal [facility] Shoulder min 2 Viewson 05-02 Shoulder min 2 Views [facility] [address] [place] [address] Shoulder min 2 Views MR#: [id number] Acct: [id number] Name: CAL MITCHELL Rep #: [id number] : 1945 M 79 From: Magdalena Lala PCP: Dr. Guanakito Reno MD Status: DEP AMB Study: Shoulder min 2 Views Date of Exam: 05/02/25 Exam# [id number] Ordering Dr: David Navarrete DO PROCEDURE: SHOULDER [...] changes involving the glenohumeral joint. Reading Location: [id number] CC: Dr. David Navarrete DO; Dr. 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 International normalized rat io (INR) calculationOrdered By: Josafat Simon on 05-01-2025 INR Coag (Bld) [Relative time] 3.2 {INR} [facility] Prothrombin Time w/INRon INR Coag (PPP) [Relative time] 3.2 {INR} Normal [facility] Comment on above: Performed By: #### L 300.3900 #### [facility] [address] [place], [address] PT Coag (PPP) [Time] 33.6 s High 11.7-14.9 [facility] Comment on above: Performed By: #### L 300.3900 #### [facility] [address] [place], [address] Prothrombin timeOrdered By: Josafat Simon on 05-01-2025 PT Coag (PPP) [Time] 33.6 s High 11.7-14.9 [facility] International normalized rat io (INR) calculationOrdered By: Josafat Simon on 04-29-2025 INR Coag (Bld) [Relative time] 3.1 {INR} [facility] Prothrombin Time w/INRon INR Coag (PPP) [Relative time] 3.1 {INR} Normal [facility] Comment on above: Performed By: #### L 300.3900 #### [facility] [place], [address] Prothrombin timeOrdered By: Josafat Simon on 04-29-2025 PT Coag (PPP) [Time] 32.2 s High 11.7-14.9 [facility] Comment on above: Performed By: #### L 300.3900 #### [facility] [address] [place], [address] International normalized rat io (INR) measurement by fingerstickOrdered By: Josafat Simon on 04-24-2025 INR Coag (BldC) [Relative time] 3.5 [facility] Comment on above: Critical Value > 4.0 Protime w/INR Fingerstickon 04-24-2025 INR Coag (PPP) [Relative time] 3.5 {INR} Normal [facility] Comment on above: Result Comment: Crit ical Value > 4.0 Performed By: #### L 300.3900 #### [facility] [address] [place], [address] Protime Coagsen 35.4 SEC High 11.7-14.9 [facility] Comment on above: Performed By: #### L 300.3900 #### [facility] [address] [place], [address] Whole blood prothrombin time Ordered By: Josafat Simon on 04-24-2025 PT Coag (Bld) [Time] 35.4 s High 11.7-14.9 [facility] Anion gap in Serum or Plasma Ordered By: Bianka Gonzalez on 04-17-2025 Anion gap [Moles/Vol] 10 mmol/L - [facility] BUN/creatinine ratioOrdered By: Bianka Gonzalez on 04-17-2025 Urea nitrogen/Creatinine [Mass ratio] 21.1 mg/mg High 10-20 [facility] Basic Metabolic Profile (BMP )on 04-17-2025 BUN/CRE 21.1 RATIO High -20 [facility] Comment on above: Order Comment: 213 Performed By: #### L 300.3900, L100.0500, L500.2500 #### [facility] [address] [place], [address] Calcium [Mass/Vol] 8.2 mg/dL Normal 7.6-11.0 [facility] Comment on above: Order Comment: 213 Performed By: #### L 300.3900, L100.0500, L500.2500 #### [facility] [address] [place], [address] Chloride [Moles/Vol] 111 mmol/L High 98-108 [facility] Comment on above: Order Comment: 213 Performed By: #### L 300.3900, L100.0500, L500.2500 #### [facility] [address] [place], [address] CO2 [Moles/Vol] 17.2 mmol/L Low 21.0-32.0 [facility] Comment on above: Order Comment: 213 Performed By: #### L 300.3900, L100.0500, L500.2500 #### [facility] [address] [place], [address] Creatinine [Mass/Vol] 2.45 mg/dL High 0.70-1.20 [facility] Comment on above: Order Comment: 213 Performed By: #### L 300.3900, L100.0500, L500.2500 #### [facility] [address] [place], [address] GAP 10 Normal 5-15 [facility] Comment on above: Order Comment: 213 Performed By: #### L 300.3900, L100.0500, L500.2500 #### [facility] [address] [place], [address] GFR/1.73 sq M.predicted among non-blacks MDRD (S/P/Bld) [Vol rate/Area] 26 mL/min/{1.73_m2} Low >60 [facility] Comment on above: Order Comment: 213 Result Comment: mL/m in/1.73m2 CKD-EPI Creatinine Equation (2020) Performed By: #### L 300.3900, L100.0500, L500.2500 #### [facility] [address] [place], [address] Glucose [Mass/Vol] 137 mg/dL High 70-99 [facility] Comment on above: Order Comment: 213 Performed By: #### L 300.3900, L100.0500, L500.2500 #### [facility] [address] [place], [address] Potassium [Moles/Vol] 4.9 mmol/L Normal 3.3-5.1 [facility] Comment on above: Order Comment: 213 Performed By: #### L 300.3900, L100.0500, L500.2500 #### [facility] [address] [place], [address] Sodium [Moles/Vol] 139 mmol/L Normal 133-145 [facility] Comment on above: Order Comment: 213 Performed By: #### L 300.3900, L100.0500, L500.2500 #### [facility] [address] [place], [address] Urea nitrogen [Mass/Vol] 52 mg/dL High 4-19 [facility] Comment on above: Order Comment: 213 Performed By: #### L 300.3900, L100.0500, L500.2500 #### [facility] [address] [place], [address] CBC-Complete Blood Cnt No Di ffon 04-17-2025 Erythrocyte distribution width (RBC) [Ratio] 16.4 % High 11.6-14.6 [facility] Comment on above: Order Comment: 213 Performed By: #### L 300.3900, L100.0500, L500.2500 #### [facility] [address] [place], [address] Hematocrit (Bld) [Volume fraction] 35.2 % Low 40-54 [facility] Comment on above: Order Comment: 213 Performed By: #### L 300.3900, L100.0500, L500.2500 #### [facility] Laboratory [address] [place], [address] Hemoglobin (Bld) [Mass/Vol] 10.6 g/dL Low 13.0-16.5 [facility] Comment on above: Order Comment: 213 Performed By: #### L 300.3900, L100.0500, L500.2500 #### [facility] [address] [place], [address] MCH (RBC) [Entitic mass] 29.2 pg Normal 27.0-32.0 [facility] Comment on above: Order Comment: 213 Performed By: #### L 300.3900, L100.0500, L500.2500 #### [facility] [address] [place], [address] MCHC (RBC) [Mass/Vol] 30.1 g/dL Low 32-36 [facility] Comment on above: Order Comment: 213 Performed By: #### L 300.3900, L100.0500, L500.2500 #### [facility] [address] [place], [address] MCV (RBC) [Entitic vol] 97.0 fL High 80-[address] [facility] Comment on above: Order Comment: 213 Performed By: #### L 300.3900, L100.0500, L500.2500 #### [facility] [address] [place], [address] Platelet mean volume (Bld) [Entitic vol] 10.0 fL Normal 6.2-12.0 [facility] Comment on above: Order Comment: 213 Performed By: #### L 300.3900, L100.0500, L500.2500 #### [facility] [address] [place], [address] Platelets (Bld) [#/Vol] 161 10*3/uL Normal 150-450 [facility] Comment on above: Order Comment: 213 Performed By: #### L 300.3900, L100.0500, L500.2500 #### [facility] [address] [place], [address] RBC (Bld) [#/Vol] 3.63 10*6/uL Low 4.6-6.2 [facility] Comment on above: Order Comment: 213 Performed By: #### L 300.3900, L100.0500, L500.2500 #### [facility] [address] [place], [address] RDW SD 58.6 fl High 35.1-43.9 [facility] Comment on above: Order Comment: 213 Performed By: #### L 300.3900, L100.0500, L500.2500 #### [facility] [address] [place], [address] WBC (Bld) [#/Vol] 7.2 10*3/uL Normal 4.4-11.0 [facility] Comment on above: Order Comment: 213 Performed By: #### L 300.3900, L100.0500, L500.2500 #### [facility] [address] [place], [address] Carbon dioxide, total [Moles /volume] in Central venous bloodOrdered By: Bianka Gonzalez on 04-17-2025 CO2 [Moles/Vol] 17.2 mmol/L Low 21.0-32.0 [facility] Chloride assayOrdered By: Jsor Gonzalez on 04-17-2025 Chloride [Moles/Vol] 111 mmol/L High 98-108 [facility] Erythrocyte distribution wid th ratioOrdered By: Bianka Gonzalez on 04-17-2025 Erythrocyte distribution width (RBC) [Ratio] 16.4 % High 11.6-14.6 [facility] Erythrocyte distribution wid th standard deviationOrdered By: Bianka Gonzalez on 04-17-2025 Erythrocyte distribution width (RBC) [Ratio] 58.6 fl High 35.1-43.9 [facility] Glomerular filtration rate ( GFR) estimation/1.73 sq m using serum, plasma, or whole bOrdered By: Bianka Gonzalez on 04-17-2025 GFR/1.73 sq M.predicted among non-blacks MDRD (S/P/Bld) [Vol rate/Area] 26 mL/min/{1.73_m2} Low >60 [facility] Comment on above: mL/min/1.73m2 CKD-EP I Creatinine Equation (2020) Hematocrit Auto (Bld) [Volum e fraction]Ordered By: Bianka Gonzalez on 04-17-2025 Hematocrit (Bld) [Volume fraction] 35.2 % Low 40-54 [facility] Hemoglobin measurementOrdere d By: Bianka Gonzalez on 04-17-2025 Hemoglobin (Bld) [Mass/Vol] 10.6 g/dL Low 13.0-16.5 [facility] International normalized rat io (INR) calculationOrdered By: Bianka Gonzalez on 04-17-2025 INR Coag (Bld) [Relative time] 2.7 {INR} [facility] MCV (mean corpuscular volume ) determinationOrdered By: Bianka Gonzalez on 04-17-2025 MCV (RBC) [Entitic vol] 97.0 fL High 80-[address] [facility] Mean corpuscular hemoglobin (MCH) determinationOrdered By: Bianka Gonzalez on 04-17-2025 MCH (RBC) [Entitic mass] 29.2 pg 27.0-32.0 [facility] Mean corpuscular hemoglobin concentration (MCHC) determinationOrdered By: Bianka Gonzalez on 04-17-2025 MCHC (RBC) [Mass/Vol] 30.1 g/dL Low 32-36 [facility] Mean platelet volume determi nationOrdered By: Bianka Gonzalez on 04-17-2025 Platelet mean volume (Bld) [Entitic vol] 10.0 fL 6.2-12.0 [facility] Platelet countOrdered By: Josr Gonzalez on 04-17-2025 Platelets (Bld) [#/Vol] 161 10*3/uL 150-450 [facility] Potassium measurement (mass/ volume)Ordered By: Bianka Gonzalez on 04-17-2025 Potassium (Unsp spec) [Mass/Vol] 4.9 mmol/L 3.3-5.1 [facility] Prothrombin Time w/INRon INR Coag (PPP) [Relative time] 2.7 {INR} Normal [facility] Comment on above: Order Comment: 213 Performed By: #### L 300.3900, L100.0500, L500.2500 #### [facility] [address] [place], [address] PT Coag (PPP) [Time] 29.7 s High 11.7-14.9 [facility] Comment on above: Order Comment: 213 Performed By: #### L 300.3900, L100.0500, L500.2500 #### [facility] [address] [place], [place], [address] Prothrombin timeOrdered By: Bianka Gonzalez on 04-17-2025 PT Coag (PPP) [Time] 29.7 s High 11.7-14.9 [facility] RBC Auto (Bld) [#/Vol]Ordere d By: Bianka Gonzalez on 04-17-2025 RBC (Bld) [#/Vol] 3.63 10*6/uL Low 4.6-6.2 [facility] Serum creatinine measurement (mass/volume)Ordered By: Bianka Gonzalez on 04-17-2025 Creatinine [Mass/Vol] 2.45 mg/dL High 0.70-1.20 [facility] Serum glucose measurement (m ass/volume)Ordered By: Bianka Gonzalez on 04-17-2025 Glucose [Mass/Vol] 137 mg/dL High 70-99 [facility] Serum or plasma calcium cornelius urement (mass/volume)Ordered By: Bianka Gonzalez on 04-17-2025 Calcium [Mass/Vol] 8.2 mg/dL 7.6-11.0 [facility] Serum or plasma urea nitroge n measurement (mass/volume)Ordered By: Bianka Gonzalez on 04-17-2025 Urea nitrogen [Mass/Vol] 52 mg/dL High 4-19 [facility] Sodium levelOrdered By: Nestor Gonzalez on 04-17-2025 Sodium [Moles/Vol] 139 mmol/L 133-145 [facility] White blood cell (WBC) count Ordered By: Bianka Gonzalez on 04-17-2025 WBC (Bld) [#/Vol] 7.2 10*3/uL 4.4-11.0 [facility] CNPNon 04-15-2025 CNPN Telephone (PHAMTE) -------- CAL MITCHELL ([id number]) 1945 M Date Time Provider Department 04/15/25 [place] During your visit today, we recorded the following information about you: Twin Cole [facility] 04/15/2025 9:[address] [facility] Ambulatory Pharmacy Anticoagulation Clinic Anticoagulation Episode Summary Anticoagulation Care Providers Provider Role Specialty Phone number Guanakito Reno MD [facility] [phone] Cal Mitchell is a 79 year old [...] Pharmacy Anticoagulation Clinic Pharmacy Anticoagulation Clinic Pager: [phone]. Twin Cole RPh 04/29/2025 8:54 AM Signed [...] injectable anticoagulant - No Stuart Hayes Kim bobbi 05/06/2025 10:59 AM Signed Spoke to patient's daughter. Patient has moved to [facility]. His INRs are monitored there. Will discharge patient from [facility] Daniel (GaikaiAshley Granados 05/06/2025 2:31 PM Signed Pharmacy Anticoagulation Clinic Discharge completed at this time. Patient may be re-referred, if deemed appropriate. Ashley Hameed CPhT (Gaikai) Pharmacy Anticoagulation Clinic Allergies As of Date: [...] guidelines link (more content not included)... Normal [facility] 04-14-2025 [facility] Tele[facility] (ENEIDA) -------- CAL MITCHELL ([id number]) 1945 M Date Time Provider Department 04/14/25 [facility] During your visit today, we recorded [...] Fully Assessed Reason for Visit: Patient Question [1367] Prescriptions as of 04/14/2025 - warfarin (COUMADIN) [...] stenosis of unspecified carotid a*10/25/2013 03/26/2024 Frequency [[id number]] 02/11/2016 03/26/2024 BPH (benign prostatic hypertrophy) with [...] Hypertensive kidney disease with stage 3 chroni*01/29/2020 correction (current) use of anticoagulants [Z79.*02/04/2020 Dementia, vascular, [...] 05/03/2024 Bilateral (more content not included)... [facility] (FAMWS) -------- CAL MITCHELL ([id number]) 1945 M Date Time Provider Department 03/28/25 [facility] During your visit today, we recorded the following information about you: Niels Rodriges RN 03/28/2025 1:06 PM Signed Faxed recent ov notes to [facility] per daughter, January request. . January reports she talked to [facility] about patient going to live there and [facility] instructed her to have pcp office send an H AND P to them for review. Allergies As of Date: 03/28/2025 (No Known Allergies) Date Reviewed: 03/05/2025 Reviewed by: Jack Holcomb RN - Fully Assessed Reason for Visit: Faxed to [facility] [Other] Prescriptions as of 03/28/2025 [...] Insulin: No - Lancets (ONE TOUCH DELICA) [facility] lancets Test blood sugar(s) one time daily. [...] stenosis of unspecified carotid a*10/25/2013 03/26/2024 Frequency [[id number]] 02/11/2016 03/26/2024 BPH (benign prostatic hypertrophy) with [...] Hypertensive kidney disease with stage 3 chroni*01/29/2020 correction (current) use of anticoagulants [Z79.*02/04/2020 Dementia, vascular, [...] Encounter Status:Closed by Niels RODRIGES [facility] C[facility] Tele[facility] (PHAMTE) -------- CAL MITCHELL ([id number]) 1945 M Date Time Provider Department 03/24/25 ALEJANDRO MOLINA During your visit today, we recorded the following information about you: Alejandro Molina RPh 03/24/2025 10:[address] [facility] Ambulatory Pharmacy Anticoagulation Clinic Anticoagulation Episode Summary Anticoagulation Care Providers Provider Role Specialty Phone number Guanakito Reno MD [facility] Family Medicine [phone] Cal Hageroll is a 79 year old [...] instructed to call [facility] at [phone] with any questions or concerns. Alejandro Molina [facility] Clinical Pharmacist, Pharmacy Anticoagulation Clinic Pharmacy Anticoagulation Clinic Pager: [phone] Alejandro Molina RPh 04/07/2025 3:31 PM Signed [...] Insulin: No - Lancets (ONE TOUCH DELICA) [facility] lancets Test blood sugar(s) one time daily. [...] diabetes mellitu (more content not included)... Normal [facility] Inital Evaluation (1) - PTon 03-24-2025 Inital Evaluation (1) - PT [facility] Physical Therapy [facility] [address] [place] [address] / REHABILITATION SERVICES INITIAL EVALUATION MR#: [id number] Acct: [id number] Name: CAL MITCHELL Rep #: [id number] : 1945 79 From: Rosa Gates DPT Referring Dr.: Dr. Josafat García MD Status: R EG [facility] Insurance: [facility] [id number] SELF PAY INSURANCE Patient's Visit Information Visit [...] due to guarding. Strength: Scap: poor, patient resource coordinator: fair, no other motions tested due to [...] to be FAXED BACK to us at [phone] for Medicare purposes. For Medicare only, by signing this I certify the plan of care. Please let me know if there are questions or concerns regarding this plan of care. Physician Signature: Date: ____ 03/24/25 1256 CC: Dr. Josafat García MD; Dr. Guanakito Reno MD E (more content not included)... Normal [facility] Orthopedic Visit Reporton Orthopedic Visit Report [facility] [address] [place] [address] [address] [place] [address] OFFICE VISIT Date of Service: 03/07/25 MR#: [id number] Acct: [id number] Name: CAL MITCHELL Rep #: [id number] : 1945 Provider: Dr. Josafat murcia MD Age/Sex: 79/M Location: [facility] Status: Signed Intake Vital Signs 03/06/25 16:19 [...] is here today with his son and tuudpeok-mt-hmb. Usually ambulates with a walker or a cane. Had a fall. Was mainly complaining about pain to the upper extremity was seen in a peripheral hospital referred here given a sling they found approximately wrist fracture on the right side. The patient does not speak very much but he converses overall well he is fxqsr-hoff-mzhofjgn fairly stoic. Supplemental Info Proximal humerus fracture [...] a r (more content not included)... Normal [facility] CNOVon 03-06-2025 [facility] -------- CAL MITCHELL ([id number]) 1945 M Date Time Provider Department 03/06/25 3:20 PM CAROLINA LANDEROS [facility] During your visit today, we recorded the following information about you: Pulse Blood pressure 68/minute 124/58 Carolina Landeros, [employer] 03/06/2025 4:30 PM Signed This is a [...] and 9-10/10 with movement. - Currently taking [place] for pain management. - Denies pain elsewhere [...] 250.00. Insulin: No Lancets (ONE TOUCH DELICA) [facility]anc[facility] Test blood sugar(s) one time daily. [...] SYSTEMS Mu (more content not included)... Normal [facility] ED NOTEon 03-06-2025 ED NOTE HNO ID: [id number] Author: JACK HOLCOMB RN Service: ? Author Type: Registered Nurse Type: ED Notes Filed: 03/06/2025 00:19 Note Text: Provided meds. Placed in sling. Assisted to bathroom and back Normal [facility] ED PROV NOTEon 03-06-2025 ED PROV NOTE HNO ID: [id number] Author: KEDAR HERNANDEZ MD Service: Emergency Medicine [...] to p (more content not included)... Normal [facility] CT BRAIN WO IVCONon 03-05-20 CT BRAIN WO IVCON * * *Final Report* * * DATE OF EXAM: Mar 05 2025 11:55PM [facility] 0504 - CT BRAIN WO IVCON [...] wall calcifications, including in the left-sided carotid. Instructional Support Services Director (topogram) images: Known (in correlation to [...] vertebrae with counting from the craniocervical junction. Textile Worker: [facility] Transcribe Date/Time: Mar 06 2025 12:48A Dictated by : CAMELIA GROVES MD This examination was interpreted and the report reviewed and electronically signed by: CAMELIA GROVES MD on Mar 06 2025 1:08AM EST [id number] Normal [facility] CT CERVICAL SPINE WO IVCONon 03-05-2025 CT CERVICAL SPINE WO IVCON * * *Final Report* * * DATE OF EXAM: Mar 05 2025 11:55PM [facility] 0505 - CT CERVICAL SPINE WO [...] wall calcifications, including in the left-sided carotid. Instructional Support Services Director (topogram) images: Known (in correlation to [...] vertebrae with counting from the craniocervical junction. Textile Worker: MAC Transcribe Date/Time: Mar 06 2025 12:48A Dictated by : CAMELIA GROVES MD This examination was interpreted and the report reviewed and electronically signed by: CAMELIA GROVES MD on Mar 06 2025 1:08AM EST [id number] Normal [facility] ED NOTEon 03-05-2025 ED NOTE HNO ID: [id number] Author: JACK HOLCOMB RN Service: ? Author Type: Registered Nurse Type: ED Notes Filed: 03/05/2025 23:05 Note Text: Assisted to bathroom and back Normal [facility] ED NOTE HNO ID: [id number] Author: JACK HOLCOMB, RN Service: ? Author Type: Registered Nurse Type: ED Notes Filed: 03/05/2025 22:10 Note Text: Pt c/o fall with right shoulder injury when wheel chair turned over. Denies neck and head injury. [place], warm, dry. No apparent distress. Alert and oriented. Normal [facility] XR HUMERUS 2V AP/LAT RTon XR [...] separation. No dislocation of the glenohumeral joint. Textile Worker: MAC Transcribe Date/Time: Mar 06 2025 12:37A Dictated by : LINNEA DIAS MD This examination was interpreted and the report reviewed and electronically signed by: LINNEA DIAS MD on Mar 06 2025 12:40AM EST [id number] Normal [facility] XR SHLDR >/=3V AP/JR AP/OTH R [...] separation. No dislocation of the glenohumeral joint. Textile Worker: MAC Transcribe Date/Time: Mar 06 2025 12:37A Dictated by : LINNEA DIAS MD This examination was interpreted and the report reviewed and electronically signed by: LINNEA DIAS MD on Mar 06 2025 12:40AM EST [id number] Normal [facility] CNPNon 02-20-2025 CNPN Telephone (PHAMTE) -------- CAL MITCHELL ([id number]) 1945 M Date Time Provider Department 02/20/25 JIMMY CARRIZALES PHAMTE During your visit today, we recorded the following information about you: Jimmy Carrizales, [facility] 02/20/2025 9:[address] 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 Jimmy Carrizales [facility] Clinical Pharmacist, Pharmacy Anticoagulation Clinic Pharmacy Anticoagulation Clinic Pager: [phone]. Twin Cole [facility] 03/06/2025 12:38 PM Signed Patient [...] an injectable anticoagulant - No Twin Cole [facility] Jimmy Carrizales [facility] 03/13/2025 7:40 AM Signed Cal Mitchell was sent Sample[employer] Inct message and reminded to test INR today or as soon as possible. Jimmy Carrizales Alejandro Mcghee RPh 03/20/2025 3:45 PM Signed No INR has been received or is in process at this time, will add to discharge list and start the discharge process at this time. Alejandro Molina bobbi Sanchez (Event Organizer)Ashley 03/24/2025 10:52 AM Signed No return call from patient. Letter sent. FINAL ATTEMPT letter sent at this time. If no response from patient within 3 weeks of letter being sent, patient will be discharged from PAC at that time. Will also route to referring MD as FYI and to see if office can assist in reaching patient. Ashley Sanchez CPhT (Drawer In Hand) Pharmacy Anticoagulation Clinic Guanakito Reno MD 03/24/2025 11:17 AM Signed Can we try and call family and see what is up. Geovanna Hinds MA 03/24/2025 11:43 AM Signed Left message for daughter, January to call back and speak with triage nurse. Geovanna Hinsd MA March 24, 2025 11:43 AM Allergies As of Date: 02/20/2025 (No Known Allergies) Date Reviewed: 01/21/2025 Reviewed by: Geovanna Hinds MA - Fully Assessed Reason for Visit: Anticoagulation Telephone Fu [148] Cmt: Home INR Primary Visit Diagnosis:correction (current) use of anticoagulants [Z79.01] Other Visit [...] mg table (more content not included)... Normal [facility] Molly 01-31-2025 KOURTNEYN Telephone ([facility]) -------- CAL MITCHELL ([id number]) 1945 M Date Time Provider Department 01/31/25 KAMRAN AYON During your visit today, we recorded the following information about you: Kamran Ayon [facility] 01/31/2025 12:[address] 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 Kamran Ayon RP Clinical Pharmacist, Pharmacy Anticoagulation Clinic Pharmacy Anticoagulation Clinic Pager: [phone]. 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 Normal [facility] CBC W Auto Differential pane l (Bld)on 01-21-2025 Basophils (Bld) [#/Vol] 0.07 10*3/uL Normal <0.11 [facility] Comment on above: Order Comment: Speci men Type: BLOOD SPECIMENOrdering Facility: [facility] Address: [address] [place] [address] Performed By: #### 5 7021-8 ####[facility] LABCLIA [id number] [place] [address] [place] Basophils/100 WBC (Bld) 0.9 % Normal C [facility] Comment on above: Order Comment: Speci men Type: BLOOD SPECIMENOrdering Facility: [facility] Address: [address] [place] [address] Performed By: #### 5 7021-8 ####[facility] LABCLIA [id number] [address], [place] [address] [place] Differential cell count method Nom (Bld) Auto Normal [facility] Comment on above: Order Comment: Speci men Type: BLOOD SPECIMENOrdering Facility: [facility] Address: [address] [place] [address] Performed By: #### 5 7021-8 ####[facility] LABCLIA [id number] [address], [place] [address] [place] Eosinophils (Bld) [#/Vol] 0.25 10*3/uL Normal <0.46 [facility] Comment on above: Order Comment: Speci men Type: BLOOD SPECIMENOrdering Facility: [facility] Address: [address] [place] [address] Performed By: #### 5 7021-8 ####[facility] LABCLIA [id number] [place] [address] [place] Eosinophils/100 WBC (Bld) 3.3 % Normal [facility] Comment on above: Order Comment: Speci men Type: BLOOD SPECIMENOrdering Facility: [facility] Address: [address] [place] [address] Performed By: #### 5 7021-8 ####[facility] LABCLIA [id number] [address], [place] [address] [place] Erythrocyte distribution width (RBC) [Ratio] 14.8 % Normal 11.5-15.0 [facility] Comment on above: Order Comment: Speci men Type: BLOOD SPECIMENOrdering Facility: [facility] Address: [address] [place] [address] Performed By: #### 5 7021-8 ####[facility] LABCLIA [id number] [place] [address] [place] Hematocrit (Bld) [Volume fraction] 41.2 % Normal 39.0-51.0 [facility] Comment on above: Order Comment: Speci men Type: BLOOD SPECIMENOrdering Facility: [facility] Address: [address] [place] [address] Performed By: #### 5 7021-8 ####[facility] LABCLIA [id number] [place] [address] [place] Hemoglobin (Bld) [Mass/Vol] 12.5 g/dL Low 13.0-17.0 [facility] Comment on above: Order Comment: Speci men Type: BLOOD SPECIMENOrdering Facility: [facility] Address: [address] [place] [address] Performed By: #### 5 7021-8 ####[facility] LABCLIA [id number] [place] [address] [place] Immature granulocytes (Bld) [#/Vol] 10*3/uL Normal <0.10 [facility] Comment on above: Order Comment: Speci men Type: BLOOD SPECIMENOrdering Facility: [facility] Address: [address] [place] [address] Performed By: #### 5 7021-8 ####[facility] LABCLIA [id number] [place] [address] [place] Immature granulocytes/100 WBC (Bld) 0.3 % Normal [facility] Comment on above: Order Comment: Speci men Type: BLOOD SPECIMENOrdering Facility: [facility] Address: [address] [place] [address] Performed By: #### 5 7021-8 ####[facility] LABCLIA [id number] [place] [id number] [place] Lymphocytes (Bld) [#/Vol] 1.28 10*3/uL Normal 1.00-4.00 [facility] Comment on above: Order Comment: Speci men Type: BLOOD SPECIMENOrdering Facility: [facility] Address: [address] [place] [address] Performed By: #### 5 7021-8 ####[facility] LABCLIA [id number] [place] [address] [place] Lymphocytes/100 WBC (Bld) 17.1 % Normal [facility] Comment on above: Order Comment: Speci men Type: BLOOD SPECIMENOrdering Facility: [facility] Address: [address] [place] [address] Performed By: #### 5 7021-8 ####[facility] LABCLIA [id number] [place] [address] [place] MCH (RBC) [Entitic mass] 29.3 pg Normal 26.0-34.0 [facility] Comment on above: Order Comment: Speci men Type: BLOOD SPECIMENOrdering Facility: [facility] Address: [address] [place] [address] Performed By: #### 5 7021-8 ####[facility] LABIA [id number] [place] [address] [place] MCHC (RBC) [Mass/Vol] 30.3 g/dL Low 30.5-36.0 [facility] Comment on above: Order Comment: Speci men Type: BLOOD SPECIMENOrdering Facility: [facility] Address: [address] [place] [address] Performed By: #### 5 7021-8 ####[facility] LABIA [id number] [place] [address] [place] MCV (RBC) [Entitic vol] 96.7 fL Normal 80.0-100.[address] [facility] Comment on above: Order Comment: Speci men Type: BLOOD SPECIMENOrdering Facility: [facility] Address: [address] [place] [address] Performed By: #### 5 7021-8 ####[facility] LABCLIA [id number] [place] [address] [place] Monocytes (Bld) [#/Vol] 0.61 10*3/uL Normal <0.87 [facility] Comment on above: Order Comment: Speci men Type: BLOOD SPECIMENOrdering Facility: [facility] Address: [address] [place] [address] Performed By: #### 5 7021-8 ####[facility] LABCLIA [id number] [place] [id number] [place] Monocytes/100 WBC (Bld) 8.2 % Normal [facility] Comment on above: Order Comment: Speci men Type: BLOOD SPECIMENOrdering Facility: [facility] Address: [address] [place] [address] Performed By: #### 5 7021-8 ####[facility] LABIA [id number] [place] [address] [place] Neutrophils (Bld) [#/Vol] 5.25 10*3/uL Normal 1.45-7.50 [facility] Comment on above: Order Comment: Speci men Type: BLOOD SPECIMENOrdering Facility: [facility] Address: [address] [place] [address] Performed By: #### 5 7021-8 ####[facility] LABIA [id number] [place] [address] [place] Neutrophils/100 WBC (Bld) 70.2 % Normal [facility] Comment on above: Order Comment: Speci men Type: BLOOD SPECIMENOrdering Facility: [facility] Address: [address] [place] [address] Performed By: #### 5 7021-8 ####[facility] LABIA [id number] [place] [id number] [place] Nucleated RBC (Bld) [#/Vol] 10*3/uL Normal <0.01 [facility] Comment on above: Order Comment: Speci men Type: BLOOD SPECIMENOrdering Facility: [facility] Address: [address] [place] [address] Performed By: #### 5 7021-8 ####[facility] LABCLIA [id number] [address] [place] [address] [place] Nucleated RBC/100 WBC (Bld) [Ratio] 0.0 /100 WBC Normal [facility] Comment on above: Order Comment: Speci men Type: BLOOD SPECIMENOrdering Facility: [facility] Address: [address] [place] [address] Performed By: #### 5 7021-8 ####[facility] LABIA [id number] [address], [place] [address] [place] Platelet mean volume (Bld) [Entitic vol] 10.3 fL Normal 9.0-12.7 [facility] Comment on above: Order Comment: Speci men Type: BLOOD SPECIMENOrdering Facility: [facility] Address: [address] [place] [address] Performed By: #### 5 7021-8 ####[facility] LABIA [id number] [place] [address] [place] Platelets (Bld) [#/Vol] 198 10*3/uL Normal 150-400 [facility] Comment on above: Order Comment: Speci men Type: BLOOD SPECIMENOrdering Facility: [facility] Address: [address] [place] [address] Performed By: #### 5 7021-8 ####[facility] LABIA [id number] [place] [address] [place] RBC (Bld) [#/Vol] 4.26 10*6/uL Normal 4.20-6.00 [facility] Comment on above: Order Comment: Speci men Type: BLOOD SPECIMENOrdering Facility: [facility] Address: [address] [place] [address] Performed By: #### 5 7021-8 ####[facility] LABIA [id number] [address], [facility] [place] WBC (Bld) [#/Vol] 7.48 10*3/uL Normal 3.70-11.00 [facility] Comment on above: Order Comment: Speci men Type: BLOOD SPECIMENOrdering Facility: [facility] Address: [address] [place] [address] Performed By: #### 5 7021-8 ####[facility] LABCLIA [id number] JESICA MARSHALL [address] CNOVon 01-21-2025 CNOV Office Visit (FAMPWS ) -------- PAULACAL Chanell ([id number]) 1945 M Date Time Provider Department 01/21/25 3:40 PM [facility] During your visit today, we recorded the following information about you: Temperature Pulse Blood pressure Weight 97.6 degrees 59/minute 122/60 117 kg Carolina Landeros, [employer] 01/21/2025 4:11 PM Signed This is a [...] taking lisinopril Monitors bp at home: Yes. [place] checks it, ok there Denies side effects: [...] pain,every 5 min x3 blood sugar diagnostic ([employer] ULTRA TEST) test strip Test blood sugar(s) one times daily. Dx: 250.00. Insulin: No Lancets (ONE TOUCH DELICA) [facility] lancets Test blood sugar(s) one time daily. [...] ttl (more content not included)... Normal [facility] Comprehensive metabolic 2000 panelon 01-21-2025 Albumin [Mass/Vol] 4.1 g/dL Normal 3.9-4.9 [facility] Comment on above: Order Comment: Marcelle shultz Type: BLOOD SPECIMENOrdering Facility: [facility] Address: [address] [place] [address] Performed By: #### 2 132-9, 18331-6, 08792-9, LIPNF ####[facility] LABCLIA [id number] [place] [address] [place] ALP [Catalytic activity/Vol] 153 U/L High 38-113 [facility] Comment on above: Order Comment: Marcelle shultz Type: BLOOD SPECIMENOrdering Facility: [facility] Address: [address] [place], [place] [address] Performed By: #### 2 132-9, 17380-6, 58247-3, LIPNF ####[facility] LABCLIA [id number] [address] [address] [place] ALT [Catalytic activity/Vol] 19 U/L Normal 10-54 [facility] Comment on above: Order Comment: Speci men Type: BLOOD SPECIMENOrdering Facility: [facility] Address: [address] [place], [place] [address] Performed By: #### 2 132-9, 48529-4, 58145-1, LIPNF ####[facility] LABCLIA [id number] [place] [address] [place] Anion gap [Moles/Vol] 15 mmol/L Normal 8-15 [facility] Comment on above: Order Comment: Speci men Type: BLOOD SPECIMENOrdering Facility: [facility] Address: [address] [place] [address] Performed By: #### 2 132-9, 01465-6, 71453-3, LIPNF ####[facility] LABIA [id number] [place] [address] [place] AST [Catalytic activity/Vol] 23 U/L Normal 14-40 [facility] Comment on above: Order Comment: Speci men Type: BLOOD SPECIMENOrdering Facility: [facility] Address: [address] [place], [place] [address] Performed By: #### 2 132-9, 97051-6, 61049-3, LIPNF ####[facility] LABIA [id number] [address] [address] [place] Bilirubin [Mass/Vol] 0.6 mg/dL Normal 0.2-1.3 [facility] Comment on above: Order Comment: Speci men Type: BLOOD SPECIMENOrdering Facility: [facility] Address: [address] [place], [place] [address] Performed By: #### 2 132-9, 24431-2, 96348-6, LIPNF ####[facility] LABCLIA [id number] [address] [address] [place] Calcium [Mass/Vol] 8.8 mg/dL Normal 8.5-10.2 [facility] Comment on above: Order Comment: Speci men Type: BLOOD SPECIMENOrdering Facility: [facility] Address: [address] [place] [address] Performed By: #### 2 132-9, 96035-3, 75772-5, LIPNF ####[facility] LABCLIA [id number] [place] [address] [place] Chloride [Moles/Vol] 106 mmol/L Normal 98-107 [facility] Comment on above: Order Comment: Speci men Type: BLOOD SPECIMENOrdering Facility: [facility] Address: [address] [place] [address] Performed By: #### 2 132-9, 98578-1, 71243-0, LIPNF ####[facility] LABCLIA [id number] [place] [address] [place] CO2 [Moles/Vol] 21 mmol/L Low 22-30 [facility] Comment on above: Order Comment: Speci men Type: BLOOD SPECIMENOrdering Facility: [facility] Address: [address] [place] [address] Performed By: #### 2 132-9, 68034-0, 75326-6, LIPNF ####[facility] LABCLIA [id number] [address] [address] [place] Creatinine [Mass/Vol] 2.34 mg/dL High 0.73-1.22 [facility] Comment on above: Order Comment: Speci men Type: BLOOD SPECIMENOrdering Facility: [facility] Address: [address] [place], [place] [address] Performed By: #### 2 132-9, 29949-4, 48709-6, LIPNF ####[facility] LABIA [id number] [place] [address] [place] Creatinine and Glomerular filtration rate.predicted panel (S/P/Bld) 27 mL/min/1.73m??? Low >=60 [facility] Comment on above: Order Comment: Marcelle shultz Type: BLOOD SPECIMENOrdering Facility: [facility] Address: [address] [place] [address] Result Comment: Lina mated Glomerular Filtration Rate [...] actual GFR. Performed By: #### 2 132-9, 90117-5, , LIPNF ####[facility] LABIA [id number] [place] [id number] [place] Glucose [Mass/Vol] 122 mg/dL High 74-99 [facility] Comment on above: Order Comment: Marcelle shultz Type: BLOOD SPECIMENOrdering Facility: [facility] Address: [address] [place] [address] Result Comment: The [place] Diabetes Association (ADA) provides guidance for cutoff [...] Standards of Medical Care in Diabetes 2016, [place] Diabetes Association. Diabetes Care. 2016.39(Suppl 1). Performed By: #### 2 132-9, 56316-4, 38599-8, LIPNF ####[facility] LABCLIA [id number] [address] [address] [place] Potassium [Moles/Vol] 4.3 mmol/L Normal 3.7-5.1 [facility] Comment on above: Order Comment: Speci men Type: BLOOD SPECIMENOrdering Facility: [facility] Address: [address] [place] [address] Performed By: #### 2 132-9, 12167-8, , LIPNF ####[facility] LABCLIA [id number] [place] [address] [place] Protein [Mass/Vol] 7.2 g/dL Normal 6.3-8.0 [facility] Comment on above: Order Comment: Speci men Type: BLOOD SPECIMENOrdering Facility: [facility] Address: [address] [place] [address] Performed By: #### 2 132-9, 03106-6, , LIPNF ####[facility] LABIA [id number] [place] [address] [place] Sodium [Moles/Vol] 142 mmol/L Normal 136-144 [facility] Comment on above: Order Comment: Speci men Type: BLOOD SPECIMENOrdering Facility: [facility] Address: [address] [place] [address] Performed By: #### 2 132-9, 71987-8, , LIPNF ####[facility] LABCLIA [id number] [address] [address] [place] Urea nitrogen [Mass/Vol] 29 mg/dL High 9-24 [facility] Comment on above: Order Comment: Speci men Type: BLOOD SPECIMENOrdering Facility: [facility] Address: [address] [place], [place] [address] Performed By: #### 2 132-9, 91659-1, 01341-5, LIPNF ####[facility] LABCLIA [id number] [address] OF [facility] HbA1c (Bld)on 01-21-2025 Average glucose Estimated from glycated hemoglobin (Bld) [Mass/Vol] 146 mg/dL Normal [facility] Comment on above: Order Comment: Marcelle [facility] Type: BLOOD SPECIMENOrdering Facility: [facility] Address: [address] [place] [address] Result Comment: eAG: (Estimated average glucose) is a calculated value from HgbA1c and is telemarketing sales representative of the average blood glucose level in the last 2-3 month period. Performed By: #### 5 5454-3 ####[facility] LABIA [id number] [address] HbA1c (Bld) [Mass fraction] 6.7 % High 4.3-5.6 [facility] Comment on above: Order Comment: Marcelle [facility] Type: BLOOD SPECIMENOrdering Facility: [facility] Address: [address] [place] [address] Result Comment: Amer ican Diabetes Association guidelines indicate that patients with HgbA1c in the range 5.7-6.4% are at increased risk for development of diabetes, and intervention by lifestyle modification may be beneficial. HgbA1c greater or equal to 6.5% is considered diagnostic of diabetes. Performed By: #### 5 5454-3 ####[facility] LABIA [id number] [address] OF [facility] LIPID PANEL, NONFASTINGon Cholesterol [Mass/Vol] 164 mg/dL Normal <200 [facility] Comment on above: Order Comment: Marcelle [facility] Type: BLOOD SPECIMENOrdering Facility: [facility] Address: [address] [place] [address] Result Comment: <200 mg/dL, Desirable 200-239 mg/dL, Borderline high >239 mg/dL, High Performed By: #### 2 132-9, 62745-1, , LIPNF ####[facility] LABCLIA [id number] [facility] [id number] [place] [address] [place] HDL CHOLESTEROL, NF 42 mg/dL Normal >39 [facility] Comment on above: Order Comment: Speci men Type: BLOOD SPECIMENOrdering Facility: [facility] Address: [address] [place] [address] Result Comment: 40-5 9 mg/dL, Acceptable >59 mg/dL, High: Negative risk factor for coronary heart disease <40 mg/dL, Low: Positive risk factor for coronary heart disease Performed By: #### 2 132-9, 00739-1, 95646-3, LIPNF ####[facility] LABCLIA [id number] [address] LDL CHOLESTEROL, NF 96 mg/dL Normal <100 [facility] Comment on above: Order Comment: Speci lexii Type: BLOOD SPECIMENOrdering Facility: [facility] Address: [address] [place] [address] Result Comment: <100 mg/dL, Optimal 100-129 mg/dL, Near optimal/above optimal 130-159 mg/dL, Borderline high 160-189 mg/dL, High >189 mg/dL, Very high Secondary prevention optimal LDL Cholesterol levels are recommended to be < 70 mg/dL Performed By: #### 2 132-9, 39464-5, 37944-9, LIPNF ####[facility] LABCLIA [id number] [address] OF [facility] LDL/HDL RATIO, NF 2.29 mg/dL Normal <2.54 [facility] Comment on above: Order Comment: Speci men Type: BLOOD SPECIMENOrdering Facility: [facility] Address: [address] [place] [address] Result Comment: Scot soto: 1. National Cholesterol Education Program ATP III Guideline At-A-Glance Quick Desk Reference: National Heart, Lung, and Blood [place]. National Institutes of Health. 2001: NIH Publication No. 01-3305. 2. An International Atherosclerosis Society position paper: global recommendations for the management of dyslipidemia: executive summary, Atherosclerosis. 2014: 232(2):410-413. Performed By: #### 2 132-9, 97286-2, 39816-2, LIPNF ####[facility] LABCLIA [id number] [place] [address] [place] NON HDL CHOL, NF 122 mg/dL Normal <130 [facility] Comment on above: Order Comment: Speci men Type: BLOOD SPECIMENOrdering Facility: [facility] Address: [address] [place] [address] Result Comment: <130 mg/dL, Optimal 130-159 mg/dL, Near optimal/above optimal 160-189 mg/dL, Borderline high 190-219 mg/dL, High >219 mg/dL, Very high Secondary prevention optimal non HDL Cholesterol levels are recommended to be <100 mg/dL Performed By: #### 2 132-9, 86169-6, 68266-1, LIPNF ####[facility] LABCLIA [id number] [place] [address] [place] T CHOL/HDL RATIO NF 3.90 mg/dL Normal <5.10 [facility] Comment on above: Order Comment: Speci men Type: BLOOD SPECIMENOrdering Facility: [facility] Address: [address] [place] [address] Performed By: #### 2 132-9, 33718-1, 85205-9, LIPNF ####[facility] LABCLIA [id number] [place] [address] [place] TRIGLYCERIDES, NF 129 mg/dL Normal <150 [facility] Comment on above: Order Comment: Speci men Type: BLOOD SPECIMENOrdering Facility: [facility] Address: [address] [place] [address] Result Comment: <150 mg/dL, Normal 150-199 mg/dL, Borderline high 200-499 mg/dL, High >499 mg/dL, Very high Performed By: #### 2 132-9, 39319-6, , LIPNF ####[facility] LABCLIA [id number] [place] [id number] [place] VLDL CHOLESTEROL, NF 26 mg/dL Normal <30 [facility] Comment on above: Order Comment: Speci men Type: BLOOD SPECIMENOrdering Facility: [facility] Address: [address] [place] [address] Performed By: #### 2 132-9, 82048-3, 34155-6, LIPNF ####[facility] LABCLIA [id number] [place] [address] [place] [facility] Magnesium [Mass/Vol] 2.3 mg/dL Normal 1.7-2.3 [facility] Comment on above: Order Comment: Speci men Type: BLOOD SPECIMENOrdering Facility: [facility] Address: [address] [place] [address] Performed By: #### 2 132-9, 60727-4, 55149-6, LIPNF ####[facility] LABIA [id number] [place] [address] [place] Vit B12 SerPl-mCncon 025 Cobalamin (Vitamin B12) [Mass/Vol] 385 pg/mL Normal 232-1245 [facility] Comment on above: Order Comment: Speci men Type: BLOOD SPECIMENOrdering Facility: [facility] Address: [address] [place] [address] Performed By: #### 2 132-9, 81139-4, 12507-0, LIPNF ####[facility] LABIA [id number] [place] [id number] [place] Molly 01-08-2025 [place] Telephone ([facility]) -------- CAL MITCHELL ([id number]) 1945 M Date Time Provider Department 01/08/25 RUTHIE CUEVAS During your visit today, we recorded the following information about you: Ruthie Cuevas [facility] 01/08/2025 9:[address] 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 Ruthie Cuevas RPh 01/29/2025 11:08 AM Addendum Cal Mitchell was called and reminded to test INR today or as soon as possible. LVMX for January. 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 Dx: 250.00. Insulin: No Problem List As Of Date 01/08/2025 (more content not included)... Normal [facility] 12-30-2024 CNPN Telephone (PHAMTE) -------- CAL MITCHELL ([id number]) 1945 M Date Time Provider Department 12/30/24 TWIN COLE During your visit today, we recorded the following information about you: Twin Cole RPh 12/30/2024 9:[address] [facility] Ambulatory Pharmacy Anticoagulation Clinic Anticoagulation Episode Summary Anticoagulation Care Providers Provider Role Specialty Phone number Guanakito Reno MD [facility] Medicine [phone] Cal Mitchell is a 79 year old [...] missed any doses of warfarin. Twin Cole [facility] Clinical Pharmacist, Pharmacy Anticoagulation Clinic Pharmacy Anticoagulation Clinic Pager: [phone]. Octavio (Event Organizer)Ruben 12/30/2024 9:15 AM Signed Roscoe'larry called regarding INR result for patient. Result has been addressed below, no further action needed. Ruben Cunningham, Drawer In Hand (brim plater) Pharmacy Anticoagulation Clinic Sofie Jimmy R, [facility] 01/07/2025 12:02 PM Signed Cal Mitchell was called, lvmx and reminded to test INR today or as soon as possible given that we left a VM last week also. [facility] Allergies As of Date: 12/30/2024 [...] Insulin: No - Lancets (ONE TOUCH DELICA) [facility] lancets Test blood sugar(s (more content not included)... Normal [facility] 12-11-2024 CNPN Telephone (PHAMTE) -------- CAL MITCHELL ([id number]) 1945 M Date Time Provider Department 12/11/24 JIMMY CARRIZALES During your visit today, we recorded the following information about you: Jimmy [facility] 12/11/2024 9:[address] [facility] Ambulatory Pharmacy Anticoagulation Clinic Anticoagulation Episode Summary Anticoagulation Care Providers Provider Role Specialty Phone number Guanakito Reno MD [facility] Family Medicine [phone] Cal Mitchell is a 79 year old [...] ALLERGIES No Known Allergies Indication for Warfarin: correction (current) use of anticoagulants Paroxysmal atrial fibrillation [...] missed any doses of warfarin. Jimmy Carrizales [facility] Clinical Pharmacist, Pharmacy Anticoagulation Clinic Pharmacy Anticoagulation Clinic Pager: [phone]. Ruthie Cuevas RPh 12/25/2024 11:14 AM Signed [...] Fu [148] Cmt: Home INR Primary Visit Diagnosis:correction (current) use of anticoagulants [Z79.01] Other Visit [...] sugar grey (more content not included)... Normal [facility] Molly 11-26-2024 [facility] -------- CAL MITCHELL ([id number]) 1945 M Date Time Provider Department 11/26/24 TWIN COLE During your visit today, we recorded the following information about you: Twin Cole [facility] 11/26/2024 5:[address] [facility] Ambulatory Pharmacy Anticoagulation Clinic Anticoagulation Episode Summary Anticoagulation Care Providers Provider Role Specialty Phone number Guanakito Reno MD [facility] [phone] Cal Mitchell is a 79 year old [...] Pharmacy [facility] Pharmacy Anticoagulation Clinic Pager: [phone]. Yamilka Heath RN 11/27/2024 8:43 AM Signed [...] Insulin: No - Lancets (ONE TOUCH DELICA) [facility] lancets Test blood sugar(s) one time daily. Dx: 250.00. Insulin: No Problem Lis (more content not included)... [facility] Telephone (BRIAN) -------- CAL MITCHELL ([id number]) 1945 M Date Time Provider Department 10/28/24 ALEJANDRO MOLINA During your visit today, we recorded the following information about you: Alejandro Molina RPh 10/28/2024 5:07 PM Signed [facility] Pharmacy Anticoagulation Clinic Anticoagulation Episode Summary Anticoagulation Care Providers Provider Role Specialty Phone number Guanakito Reno MD [facility] Medicine [phone] Cal Mitchell is a 79 year old [...] instructed to call [facility] at [phone] with any questions or concerns. Alejandro Molina RPh Clinical Pharmacist, Pharmacy Anticoagulation Clinic Pharmacy Anticoagulation Clinic Pager: [phone] Alejandro Molina RPh 11/11/2024 4:42 PM Signed [...] PM Signed Added to discharge list Daniel (Event Organizer)Ashley 11/26/2024 2:43 PM Signed DISCHARGE No return call from patient. Letter sent. FINAL ATTEMPT letter sent at this time. If no response from patient within 4 weeks, patient will be discharged from PAC at that time. Will also route to referring MD as FYI and to see if office can assist in reaching patient. Ashley Sanchez CPhT (Drawer In Hand) Pharmacy Anticoagulation Clinic Guanakito Reno MD 11/26/2024 [...] understand things anymore. 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 CHANCE Ramirez (Event Organizer), Ashley 11/26/2024 5:07 PM Signed PATIENT CALL [...] received. PAC will await results. Ashley Sanchez ([facility] (more content not included)... [facility] C[facility] Telephone (FAMPWS) -------- CAL MITCHELL ([id number]) 1945 M Date Time Provider Department 10/21/24 GUANAKITO [facility] During your visit today, we recorded [...] Fully Assessed Reason for Visit: Patient Update [[id number]] Patient Question [6297] Prescriptions as of 10/21/2024 - atorvastatin (LIPITOR) [...] - Lancets ([facility] TOUCH DELICA) [facility] Test blood sugar(s) one time daily. [...] stenosis of unspecified carotid a*10/25/2013 03/26/2024 Frequency [[id number]] 02/11/2016 03/26/2024 BPH (benign prostatic hypertrophy) with urinary*02/11/2016 Adhesive capsulitis of right shoulder [M75.01] 05/15/2018 Aortic stenosis [I35.0] 05/24/2018 CKD (chronic kidney disease) stage 3, GFR 30-59*05/24/2018 03/26/2024 Lung (more content not included)... Normal [facility] CNPNon 10-01-2024 CNPN Telephone (PHAMTE) -------- CAL MITCHELL ([id number]) 1945 M Date Time Provider Department 10/01/24 [place] PHAKAROLYN During your visit today, we recorded the following information about you: Twin Cole [facility] 10/01/2024 9:[address] [facility] Ambulatory Pharmacy Anticoagulation Clinic Anticoagulation Episode Summary Anticoagulation Care Providers Provider Role Specialty Phone number Guanakito Reno MD [facility] Family Medicine [phone] Cal Mitchell is a 79 year old [...] Pharmacy Anticoagulation Clinic Pharmacy Anticoagulation Clinic Pager: [phone]. Twin Cole RPh 10/15/2024 12:10 PM Signed [...] tablet Dissolve (more content not included)... Normal [facility] Molly 08-26-2024 LUCIO Telephone ([facility]) -------- CAL MITCHELL ([id number]) 1945 M Date Time Provider Department 08/26/24 ALEJANDRO MOLINA During your visit today, we recorded the following information about you: Alejandro Molina [facility] 08/26/2024 6:[address] [facility] Ambulatory Pharmacy Anticoagulation Clinic Anticoagulation Episode Summary Anticoagulation Care Providers Provider Role Specialty Phone number Guanakito Reno MD [facility] Family Medicine [phone] Cal Mitchell is a 79 year old [...] warfarin instructions: 5 mg every day Sent [employer] message Advised patient to continue current weekly dose as noted above Next INR check due on 09/09/2024 Alejandro Molina [facility] Clinical Pharmacist, Pharmacy Anticoagulation Clinic Pharmacy Anticoagulation Clinic Pager: [phone]. Alejandro Molina [facility] 09/09/2024 4:38 PM Signed Patient was due to test INR today. Will continue to monitor for results. Will follow up in one week if no results received. Alejandro Molina [facility] 09/23/2024 2:35 PM Signed Cal Mitchell was called and reminded to test INR today or as soon as possible. Alejandro Molina [facility] 09/30/2024 12:31 PM Signed Added [...] Insulin: No - Lancets (ONE TOUCH DELICA) [facility] lancets Test blood sugar(s) one time daily. Dx: 250.00. Insulin: No Problem List As Of Date 08/26/2024 Noted Resolved Hyperlipidemia, mixed [E78.2] Essential hypertension [I10] Peripheral arterial disease (HCC) [I73.9] Other symptoms involving cardiovascular system * 07/20/2016 ACTINIC KERATOSIS [L57.0] 10/12/2005 IMPACTED CERUMEN [H61.20] (more content not included)... [facility] Telephone (AGHOSP) -------- CAL MITCHELL ([id number]) 1945 M Date Time Provider Department 08/16/24 JIMMY PERKINS KLEVER During your visit today, we recorded the following information about you: Josselyn MayerQUIQUE 08/30/2024 1:49 PM Signed Please call patient [...] Insulin: No - Lancets (ONE TOUCH DELICA) [facility] lancets Test blood sugar(s) one time daily. 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 Normal [facility] ECG B/O W INTERP (MED OFFICE )on 07-10-2024 Sinus rhythm with fi rst degree heart block [facility] Kidney - bilateral and Ur inary bladderon 05-02-2024 IMPRESSION: No hydronephrosis. Cholelithiasis. Textile Worker: PSCB Transcribe Date/Time: May 02 2024 7:17P Dictated by : TIN COTTER DO This examination was interpreted and the report reviewed and electronically signed by: TIN COTTER DO on May 02 2024 7:19PM [facility] DIVISION OF RADIOLOGY * * *Final [...] DATE OF EXAM: May 02 2024 10:49AM [facility] 1055 - US KIDNEY/BLADDER / PROCEDURE REASON: [...] noted cholelithiasis. IMPRESSION IMPRESSION: No hydronephrosis. Cholelithiasis. Textile Worker: MAC Transcribe Date/Time: May 02 2024 7:17P Dictated by : TIN COTTER DO This examination was interpreted and the report reviewed and electronically signed by: TIN COTTER DO on May 02 2024 7:19PM [facility] Radiology Study observation (narrative) Alexx Lopes US Kidney - bilateral and Ur inary bladderOrdered By: Ccf Provider on 05-02-2024 [facility] NT PRO BNPon 03-26-2024 Natriuretic peptide.B prohormone N-Terminal [Mass/Vol] 501 pg/mL High NINF - 450 pg/mL [facility] Natriuretic peptide.B prohor jodie N-Terminal [Mass/Vol]on 03-26-2024 Interpretation and review of laboratory results Abnormal [facility] THYROID STIMULATING HORMONEo n 03-26-2024 TSH Qn 2.950 m[IU]/L [facility] TSH Qnon 03-26-2024 Interpretation and review of laboratory results Normal [facility] CBC panel Auto (Bld)on 03-25 Erythrocyte distribution width (RBC) [Ratio] 14.9 % 11.5 - 15.0 % [facility] Hematocrit (Bld) [Volume fraction] 31.8 % Low 39.0 - 51.0 % [facility] Hemoglobin (Bld) [Mass/Vol] 9.6 g/dL Low 13.0 - 17.0 g/dL [facility] Interpretation and review of laboratory results Abnormal [facility] MCH (RBC) [Entitic mass] 30.9 pg 26.0 - 34.[address] [facility] MCHC (RBC) [Mass/Vol] 30.2 g/dL Low 30.5 - 36.0 g/dL [facility] MCV (RBC) [Entitic vol] 102.3 fL High 80.0 - 100.[address] [facility] Nucleated RBC (Bld) [#/Vol] NINF [facility] Platelet mean volume (Bld) [Entitic vol] 9.8 fL 9.0 - 12.[address] [facility] Platelets (Bld) [#/Vol] 158 10*3/uL [facility] RBC (Bld) [#/Vol] 3.11 10*6/uL Low 4.20 - 6.0 0 m/uL [facility] WBC (Bld) [#/Vol] 4.72 10*3/uL [facility] Comprehensive metabolic 2000 panelOrdered By: Haley Marie on 03-25-2024 Albumin [Mass/Vol] 3.7 g/dL Low 3.9 - 4.9 g/dL [facility] ALP [Catalytic activity/Vol] 109 U/L 38 - 113 U/L [facility] ALT [Catalytic activity/Vol] 15 U/L 10 - 54 U/L [facility] Anion gap [Moles/Vol] 12 mmol/L 8 - 15 mmol/L [facility] AST [Catalytic activity/Vol] 19 U/L 14 - 40 U/L [facility] Bilirubin [Mass/Vol] 0.3 mg/dL 0.2 - 1 .3 mg/dL [facility] Calcium [Mass/Vol] 8.6 mg/dL 8.5 - 10. 2 mg/dL [facility] Chloride [Moles/Vol] 113 mmol/L High 98 - 10 7 mmol/L [facility] CO2 [Moles/Vol] 16 mmol/L Low 22 - 30 mmol/L [facility] Creatinine [Mass/Vol] 2.48 mg/dL High 0.73 - 1.22 mg/dL [facility] GFR/1.73 sq M.predicted among non-blacks MDRD (S/P/Bld) [Vol rate/Area] 26 mL/min/{1.73_m2} Low - PINF [facility] Comment on above: Estimated Glomerular Filtration [...] 99 mg/dL 74 - 99 mg/dL [facility] Comment on above: The [place] [employer] (ADA) provides guidance for [...] Standards of Medical Care in Diabetes 2016, [place] [employer]. Diabetes Care. 2016.39(Suppl 1). Interpretation and review of laboratory results Abnormal [facility] Potassium [Moles/Vol] 4.4 mmol/L 3.7 - 5.1 mmol/L [facility] Protein [Mass/Vol] 6.4 g/dL 6.3 - 8.0 g/dL [facility] Sodium [Moles/Vol] 141 mmol/L 136 - 144 mmol/L [facility] Urea nitrogen [Mass/Vol] 49 mg/dL High 9 - 24 mg/dL [facility] ALBUMIN/CREAT RATIO RND URon 08-14-2023 Albumin DL <= 20 mg/L (U) [Mass/Vol] 26.7 mg/L [facility] Albumin/Creatinine (U) [Mass ratio] 27 mg/g <30 mg/g [facility] Creatinine (U) [Mass/Vol] 98.9 mg/dL 20.0 - 300.0 mg/dL [facility] CBC W Auto Differential pane l (Bld)on 08-14-2023 Basophils (Bld) [#/Vol] 0.05 10*3/uL <0.11 k/uL [facility] Basophils/100 WBC (Bld) 0.9 % [facility] Differential cell count method Nom (Bld) Auto [facility] Eosinophils (Bld) [#/Vol] 0.44 10*3/uL <0.46 k/uL [facility] Eosinophils/100 WBC (Bld) 8.3 % [facility] Erythrocyte distribution width (RBC) [Ratio] 14.5 % 11.5 - 15.0 % [facility] Hematocrit (Bld) [Volume fraction] 38.6 % Low 39.0 - 51.0 % [facility] Hemoglobin (Bld) [Mass/Vol] 11.7 g/dL Low 13.0 - 17.0 g/dL [facility] Immature granulocytes (Bld) [#/Vol] <0.10 k/uL [facility] Immature granulocytes/100 WBC (Bld) 0.4 % [facility] Lymphocytes (Bld) [#/Vol] 1.18 10*3/uL 1.00 - 4.00 k/uL [facility] Lymphocytes/100 WBC (Bld) 22.1 % [facility] MCH (RBC) [Entitic mass] 31.3 pg 26.0 - 34.[address] [facility] MCHC (RBC) [Mass/Vol] 30.3 g/dL Low 30.5 - 36.0 g/dL [facility] MCV (RBC) [Entitic vol] 103.2 fL High 80.0 - 100.[address] [facility] Monocytes (Bld) [#/Vol] 0.42 10*3/uL <0.87 k/uL [facility] Monocytes/100 WBC (Bld) 7.9 % [facility] Neutrophils (Bld) [#/Vol] 3.22 10*3/uL 1.45 - 7.50 k/uL [facility] Neutrophils/100 WBC (Bld) 60.4 % [facility] Nucleated RBC (Bld) [#/Vol] <0.01 k/uL [facility] Nucleated RBC/100 WBC (Bld) [Ratio] 0.0 /[address] [facility] Platelet mean volume (Bld) [Entitic vol] 10.5 fL 9.0 - 12.[address] [facility] Platelets (Bld) [#/Vol] 144 10*3/uL Low 150 - 400 k/uL [facility] RBC (Bld) [#/Vol] 3.74 10*6/uL Low 4.20 - 6.0 0 m/uL [facility] WBC (Bld) [#/Vol] 5.33 10*3/uL 3.70 - 11.00 k/uL [facility] Comprehensive metabolic 2000 panelon 08-14-2023 Albumin [Mass/Vol] 4.1 g/dL 3.9 - 4.9 g/dL [facility] ALP [Catalytic activity/Vol] 111 U/L 38 - 113 U/L [facility] ALT [Catalytic activity/Vol] 21 U/L 10 - 54 U/L [facility] Anion gap [Moles/Vol] 11 mmol/L 9 - 18 mmol/L [facility] AST [Catalytic activity/Vol] 26 U/L 14 - 40 U/L [facility] Bilirubin [Mass/Vol] 0.5 mg/dL 0.2 - 1 .3 mg/dL [facility] Calcium [Mass/Vol] 8.8 mg/dL 8.5 - 10. 2 mg/dL [facility] Chloride [Moles/Vol] 106 mmol/L High 97 - 10 5 mmol/L [facility] CO2 [Moles/Vol] 24 mmol/L 22 - 30 mmol/L [facility] Creatinine [Mass/Vol] 2.30 mg/dL High 0.73 - 1.22 mg/dL [facility] Estimated Glomerular Filtration Rate 28 mL/min/1.73m Low >=60 mL/min/1.[address] [facility] Glucose [Mass/Vol] 113 mg/dL High 74 - 99 mg/dL [facility] Potassium [Moles/Vol] 4.6 mmol/L 3.7 - 5.1 mmol/L [facility] Protein [Mass/Vol] 7.0 g/dL 6.3 - 8.0 g/dL [facility] Sodium [Moles/Vol] 141 mmol/L 136 - 144 mmol/L [facility] Urea nitrogen [Mass/Vol] 28 mg/dL High 9 - 24 mg/dL [facility] HbA1c (Bld)on 08-14-2023 Average glucose Estimated from glycated hemoglobin (Bld) [Mass/Vol] 108 mg/dL [facility] HbA1c (Bld) [Mass fraction] 5.4 % 4.3 - 5.6 % [facility] Lipid 1996 panelon Cholesterol [Mass/Vol] 165 mg/dL <200 mg/dL [facility] Cholesterol in HDL [Mass/Vol] 44 mg/dL >39 mg/dL [facility] Cholesterol in LDL [Mass/Vol] 100 mg/dL High <100 mg/dL [facility] Cholesterol in LDL/Cholesterol in HDL [Mass ratio] 2.27 {ratio} <2.54 [facility] Cholesterol in VLDL [Mass/Vol] 21 mg/dL <30 mg/dL [facility] Cholesterol non HDL [Mass/Vol] 121 mg/dL <130 mg/dL [facility] Cholesterol.total/Julai sterol in HDL [Mass ratio] 3.75 {ratio} <5.10 [facility] Fasting Time [address] [facility] Triglyceride [Mass/Vol] 106 mg/dL <150 mg/dL C [facility] INR FINGERSTICK B/Oon 2021 INR Coag (Bld) [Relative time] 1.9 (self reporting) [facility] INR FINGERSTICK B/Oon 2021 INR Coag (Bld) [Relative time] 2.[address] [facility] Quality Check No [facility] Vital Signs Date Time Vital Sign Value Performing Clinician Facility 03-07-2025 12:57-0400 Body height 177.[address] Guanakito Reno MD Work Phone: [facility] 03-07-2025 12:57-0400 Body mass index (BMI) [Ratio] 35.9 kg/m2 Dr. Guanakito Reno MD Work Phone: [facility] 03-07-2025 12:57-0400 Body weight 113.[address] Guanakito Reno MD Work Phone: [facility] 01-21-2025 15:33-0400 Body mass index (BMI) [Ratio] 37.02 kg/m2 Carolina Suppan [employer] Work Phone: [facility] 01-21-2025 15:33-0400 Body temperature 97.59 [degF] Carolina Suppan [employer] Work Phone: [facility] 01-21-2025 15:33-0400 Body weight 117.03 kg Carolina Suppan [employer] Work Phone: [facility] 01-21-2025 15:33-0400 Diastolic blood pressure 60 mm[Hg] Carolina Suppan [employer] Work Phone: [facility] 01-21-2025 15:33-0400 Heart rate 59 /min Carolina Suppan [employer] Work Phone: [facility] 01-21-2025 15:33-0400 SaO2% (BldA) [Mass fraction] 97 % Carolina Suppan [employer] Work Phone: [facility] 01-21-2025 15:33-0400 Systolic blood pressure 122 mm[Hg] Carolina Suppan [employer] Work Phone: [facility] 08-06-2024 12:57-0400 Body height 177.8 cm Laura Iraheta MD Work Phone: [facility] Comment on above: patient reports 08-06-2024 12:57-0400 Body mass index (BMI) [Ratio] 34.44 kg/m2 Laura Iraheta MD Work Phone: [facility] 08-06-2024 12:57-0400 Body weight 108.86 kg Laura Iraheta MD Work Phone: [facility] 08-06-2024 12:57-0400 Diastolic blood pressure 68 mm[Hg] Laura Iraheta MD Work Phone: [facility] 08-06-2024 12:57-0400 Heart rate 61 /min Laura Iraheta MD Work Phone: [facility] 08-06-2024 12:57-0400 SaO2% (BldA) [Mass fraction] 99 % Laura Iraheta MD Work Phone: [facility] 08-06-2024 12:57-0400 Systolic blood pressure 128 mm[Hg] Laura Iraheta MD Work Phone: [facility] 07-12-2024 11:22-0400 Body height 177.8 cm Guanakito Reno MD Work Phone: [facility] 07-12-2024 11:22-0400 Body mass index (BMI) [Ratio] 34.55 kg/m2 Guanakito Reno MD Work Phone: [facility] 07-12-2024 11:22-0400 Body weight 109.23 kg Guanakito Reno MD Work Phone: [facility] 07-12-2024 11:22-0400 Diastolic blood pressure 62 mm[Hg] Guanakito Reno MD Work Phone: [facility] 07-12-2024 11:22-0400 Heart rate 59 /min Guanakito Reno MD Work Phone: [facility] 07-12-2024 11:22-0400 Systolic blood pressure 114 mm[Hg] Guanakito Reno MD Work Phone: [facility] 07-10-2024 08:11-0400 Body height 177.8 cm Cal Mondragon MD Work Phone: [facility] Comment on above: Patient reports 07-10-2024 08:11-0400 Body mass index (BMI) [Ratio] 34.49 kg/m2 Cal Mondragon MD Work Phone: [facility] 07-10-2024 08:11-0400 Body weight 109.05 kg Cal Mondragon MD Work Phone: [facility] 07-10-2024 08:11-0400 Diastolic blood pressure 70 mm[Hg] Cal Mondragon MD Work Phone: [facility] 07-10-2024 08:11-0400 Heart rate 94 /min Cal Mondragon MD Work Phone: [facility] 07-10-2024 08:11-0400 SaO2% (BldA) [Mass fraction] 94 % Cal Mondragon MD Work Phone: [facility] 07-10-2024 08:11-0400 Systolic blood pressure 120 mm[Hg] Cal Mondragon MD Work Phone: [facility] 07-10-2024 08:08-0400 Body height 177.8 cm Pam Reddy MD Work Phone: [facility] Comment on above: Patient reports 07-10-2024 08:08-0400 Body mass index (BMI) [Ratio] 34.49 kg/m2 Pam Reddy MD Work Phone: [facility] 07-10-2024 08:08-0400 Body weight 109.05 kg Pam Reddy MD Work Phone: [facility] Comment on above: Fully clothed with shoes on. 07-10-2024 08:08-0400 Diastolic blood pressure 70 mm[Hg] Pam Reddy MD Work Phone: [facility] 07-10-2024 08:08-0400 Heart rate 94 /min Pam Reddy MD Work Phone: [facility] 07-10-2024 08:08-0400 SaO2% (BldA) [Mass fraction] 94 % Pam Reddy MD Work Phone: [facility] 07-10-2024 08:08-0400 Systolic blood pressure 120 mm[Hg] Pam Reddy MD Work Phone: [facility] 06-06-2024 11:31-0400 Body mass index (BMI) [Ratio] 36.03 kg/m2 Carolina Suppan [employer] Work Phone: [facility] 06-06-2024 11:31-0400 Body weight 110.68 kg Carolina Suppan [employer] Work Phone: [facility] 06-06-2024 11:31-0400 Diastolic blood pressure 68 mm[Hg] Carolina Suppan [employer] Work Phone: [facility] 06-06-2024 11:31-0400 Heart rate 71 /min Carolina Suppan [employer] Work Phone: [facility] 06-06-2024 11:31-0400 Respiratory rate 18 /min Carolina Suppan [employer] Work Phone: [facility] 06-06-2024 11:31-0400 SaO2% (BldA) [Mass fraction] 99 % Carolina Suppan [employer] Work Phone: [facility] 06-06-2024 11:31-0400 Systolic blood pressure 144 mm[Hg] Carolina Suppan [employer] Work Phone: [facility] 06-05-2024 16:41-0400 Body mass index (BMI) [Ratio] 36.04 kg/m2 Valerie Connelly [employer] Work Phone: [facility] 06-05-2024 16:41-0400 Body temperature 96.6 [degF] Valerie Connelly [employer] Work Phone: [facility] 06-05-2024 16:41-0400 Body weight 110.7 kg Valerie Connelly [employer] Work Phone: [facility] 06-05-2024 16:41-0400 Diastolic blood pressure 70 mm[Hg] Valerie Connelly [employer] Work Phone: [facility] 06-05-2024 16:41-0400 Heart rate 75 /min Valerie Connelly [employer] Work Phone: [facility] 06-05-2024 16:41-0400 Respiratory rate 19 /min Valerie Connelly [employer] Work Phone: [facility] 06-05-2024 16:41-0400 SaO2% (BldA) [Mass fraction] 97 % Valerie Connelly [employer] Work Phone: [facility] 06-05-2024 16:41-0400 Systolic blood pressure 140 mm[Hg] Valerie Connelly [employer] Work Phone: [facility] 05-06-2024 17:38-0400 Body height 175.3 cm Corrina Haagen [employer] Work Phone: [facility] 05-06-2024 17:38-0400 Body mass index (BMI) [Ratio] 37.95 kg/m2 Corrina Haagen [employer] Work Phone: [facility] 05-06-2024 17:38-0400 Body weight 116.57 kg Corrina Haagen [employer] Work Phone: [facility] 05-06-2024 17:38-0400 Diastolic blood pressure 58 mm[Hg] Corrina Haagen [employer] Work Phone: [facility] 05-06-2024 17:38-0400 Heart rate 62 /min Corrina Haagen [employer] Work Phone: [facility] 05-06-2024 17:38-0400 Respiratory rate 14 /min Corrina Haagen [employer] Work Phone: [facility] 05-06-2024 17:38-0400 SaO2% (BldA) [Mass fraction] 89 % Corrina Haagen [employer] Work Phone: [facility] 05-06-2024 17:38-0400 Systolic blood pressure 122 mm[Hg] Corrina Haagen [employer] Work Phone: [facility] 04-08-2024 15:17-0400 Body mass index (BMI) [Ratio] 37.63 kg/m2 Corrina Haagen [employer] Work Phone: [facility] 04-08-2024 15:17-0400 Body weight 115.58 kg Corrina Haagen [employer] Work Phone: [facility] 04-08-2024 14:55-0400 Diastolic blood pressure 58 mm[Hg] Corrina Haagen [employer] Work Phone: [facility] 04-08-2024 14:55-0400 Heart rate 72 /min Corrina Haagen [employer] Work Phone: [facility] 04-08-2024 14:55-0400 Respiratory rate 16 /min Corrina Haagen [employer] Work Phone: [facility] 04-08-2024 14:55-0400 Systolic blood pressure 102 mm[Hg] Corrina Hakevin [employer] Work Phone: [facility] 03-26-2024 16:33-0400 Body height 175.3 cm Guanakito Reno MD Work Phone: [facility] 03-26-2024 16:33-0400 Body mass index (BMI) [Ratio] 37.07 kg/m2 Guanakito Reno MD Work Phone: [facility] 03-26-2024 16:33-0400 Body weight 113.85 kg Guanakito Reno MD Work Phone: [facility] 03-26-2024 16:33-0400 Diastolic blood pressure 46 mm[Hg] Guanakito Reno MD Work Phone: [facility] 03-26-2024 16:33-0400 Heart rate 86 /min Guanakito Reno MD Work Phone: [facility] 03-26-2024 16:33-0400 SaO2% (BldA) [Mass fraction] 98 % Guanakito Reno MD Work Phone: [facility] 03-26-2024 16:33-0400 Systolic blood pressure 98 mm[Hg] Guanakito Reno MD Work Phone: [facility] 03-25-2024 14:52-0400 Body mass index (BMI) [Ratio] 37.21 kg/m2 Pam Reddy MD Work Phone: [facility] 03-25-2024 14:52-0400 Body weight 114.31 kg Pam Reddy MD Work Phone: [facility] 03-25-2024 14:52-0400 Diastolic blood pressure 69 mm[Hg] Pam Reddy MD Work Phone: [facility] 03-25-2024 14:52-0400 Heart rate 66 /min Pam Reddy MD Work Phone: [facility] 03-25-2024 14:52-0400 SaO2% (BldA) [Mass fraction] 96 % Pma Reddy MD Work Phone: [facility] 03-25-2024 14:52-0400 Systolic blood pressure 116 mm[Hg] Pam Reddy MD Work Phone: [facility] 12-22-2023 14:55-0500 Body temperature 97.81 [degF] Carolina Suppan STONE BANKER.CORRECTIONS IDENTIFICATION TECHNICIAN Work Phone: [facility] 12-22-2023 14:55-0500 Diastolic blood pressure 60 mm[Hg] Carolina Suppan STONE BANKER.CORRECTIONS IDENTIFICATION TECHNICIAN Work Phone: [facility] 12-22-2023 14:55-0500 Heart rate 76 /min Carolina Suppan STONE BANKER.CORRECTIONS IDENTIFICATION TECHNICIAN Work Phone: [facility] 12-22-2023 14:55-0500 Respiratory rate 18 /min Carolina Suppan STONE BANKER.CORRECTIONS IDENTIFICATION TECHNICIAN Work Phone: [facility] 12-22-2023 14:55-0500 SaO2% (BldA) [Mass fraction] 99 % Carolina Landeros STONE BANKER.CORRECTIONS IDENTIFICATION TECHNICIAN Work Phone: [facility] 12-22-2023 14:55-0500 Systolic blood pressure 122 mm[Hg] Carolina Landeros STONE BANKER.CORRECTIONS IDENTIFICATION TECHNICIAN Work Phone: [facility] 08-14-2023 13:24-0400 Body height 175.3 cm Guanakito Reno MD Work Phone: [facility] 08-14-2023 13:24-0400 Body weight 120.75 kg Guanakito Reno MD Work Phone: [facility] 08-14-2023 13:24-0400 Diastolic blood pressure 68 mm[Hg] Guanakito Reno MD Work Phone: [facility] 08-14-2023 13:24-0400 Heart rate 59 /min Guanakito Reno MD Work Phone: [facility] 08-14-2023 13:24-0400 SaO2% (BldA) [Mass fraction] 99 % Guanakito Reno MD Work Phone: [facility] 08-14-2023 13:24-0400 Systolic blood pressure 120 mm[Hg] Guanakito Reno MD Work Phone: [facility] 02-13-2023 14:39-0400 Body weight 119.75 kg Pam Reddy MD Work Phone: [facility] 02-13-2023 14:39-0400 Diastolic blood pressure 60 mm[Hg] Pam Reddy MD Work Phone: [facility] 02-13-2023 14:39-0400 Heart rate 78 /min Pam Reddy MD Work Phone: [facility] 02-13-2023 14:39-0400 SaO2% (BldA) [Mass fraction] 96 % Pam Reddy MD Work Phone: [facility] 02-13-2023 14:39-0400 Systolic blood pressure 110 mm[Hg] Pam Reddy MD Work Phone: [facility] 02-06-2023 15:29-0400 Body weight 118.39 kg Guanakito Reno MD Work Phone: [facility] 02-06-2023 15:29-0400 Diastolic blood pressure 58 mm[Hg] Guanakito Reno MD Work Phone: [facility] 02-06-2023 15:29-0400 Heart rate 76 /min Guanakito Reno MD Work Phone: [facility] 02-06-2023 15:29-0400 Respiratory rate 16 /min Guanakito Reno MD Work Phone: [facility] 02-06-2023 15:29-0400 SaO2% (BldA) [Mass fraction] 94 % Guanakito Reno MD Work Phone: [facility] 02-06-2023 15:29-0400 Systolic blood pressure 122 mm[Hg] Guanakito Reno MD Work Phone: [facility] 10-04-2022 10:38-0500 Body height 175.3 cm Alondra Prescott DO Work Phone: [facility] 10-04-2022 10:38-0500 Body weight 117.03 kg Alondra Prescott DO Work Phone: [facility] 10-04-2022 10:38-0500 Diastolic blood pressure 66 mm[Hg] Alondra Prescott DO Work Phone: [facility] 10-04-2022 10:38-0500 Heart rate 57 /min Alondra Prescott DO Work Phone: [facility] 10-04-2022 10:38-0500 SaO2% (BldA) [Mass fraction] 100 % Alondra Prescott DO Work Phone: [facility] 10-04-2022 10:38-0500 Systolic blood pressure 122 mm[Hg] Alondra Prescott DO Work Phone: [facility] 08-15-2022 14:50-0400 Body height 175.3 cm Pam Reddy MD Work Phone: [facility] 08-15-2022 14:50-0400 Body weight 119.3 kg Pam Reddy MD Work Phone: [facility] 08-15-2022 14:50-0400 Diastolic blood pressure 62 mm[Hg] Pam Reddy MD Work Phone: [facility] 08-15-2022 14:50-0400 Heart rate 58 /min Pam Reddy MD Work Phone: [facility] 08-15-2022 14:50-0400 Respiratory rate 18 /min Pam Reddy MD Work Phone: [facility] 08-15-2022 14:50-0400 SaO2% (BldA) [Mass fraction] 98 % Pam Reddy MD Work Phone: [facility] 08-15-2022 14:50-0400 Systolic blood pressure 114 mm[Hg] Pam Reddy MD Work Phone: [facility] 01-19-2022 15:14-0400 Body weight 121.11 kg Guanakito Reno MD Work Phone: [facility] 01-19-2022 15:14-0400 Diastolic blood pressure 68 mm[Hg] Guanakito Reno MD Work Phone: [facility] 01-19-2022 15:14-0400 Heart rate 60 /min Guanakito Reno MD Work Phone: [facility] 01-19-2022 15:14-0400 Systolic blood pressure 124 mm[Hg] Guanakito Reno MD Work Phone: [facility] Encounters Encounter Date Encounter Type Care Provider Facility Start: 08-19-2025 ambulatory Josafat Simon OLS Facil ity:[facility] Start: 08-14-2025 ambulatory Josafat Simon OLS Facil ity:[facility] Start: 07-31-2025 ambulatory Josafat Simon OLS Facil ity:[facility] Start: 07-17-2025 End: 07-17-2025 ambulatory Guanakito Daviso Facility:[facility] Start: 07-08-2025 End: 07-08-2025 ambulatory Josafat Simon OLS Facility:[facility] Start: 06-24-2025 End: 06-24-2025 ambulatory Josafat Selbyins OLS Facility:[facility] Start: 06-17-2025 ambulatory Josafat ORTEZ Facil ity:[facility] Start: 06-12-2025 End: 06-12-[facility] Start: 06-10-2025 End: 06-10-2025 ambulatory Bianka ORTEZ Facility:[facility] Start: 06-03-[address] Josafat juarez MD [facility] Start: 06-03-2025 End: 06-03-2025 ambulatory Josafat ORTEZ Facility:[facility] Start: 05-27-[address] Josafat juarez MD [facility] Start: 05-27-2025 End: 05-27-2025 ambulatory Josafat ORTEZ Facility:[facility] Start: 05-20-2025 End: 05-20-[address] Guanakito Reno MD Work Phone: -[facility] Start: 05-20-2025 End: 05-20-[address] Josafat Simon MD [facility] Start: 05-20-2025 End: 05-20-2025 ambulatory Josafat ORTEZ Facility:[facility] Start: 05-15-2025 ambulatory Josafat ORTEZ Facil ity:[facility] Start: 05-15-[address] Josafat juarez MD [facility] Start: 05-13-[address] Josafat juarez MD [facility] Start: 05-13-2025 End: 05-13-2025 ambulatory Josafat ORTEZ Facility:[facility] Start: 05-08-2025 ambulatory Josafat ORTEZ Facil ity:[facility] Start: 05-08-[address] Josafat juarez MD [facility] Start: 05-06-[address] Josafat juarez MD -[facility] Start: 05-06-2025 End: 05-06-2025 ambulatory Josafat ORTEZ Facility:[facility] Start: 05-02-2025 End: 05-02-[address] Burt Zamora MD -[facility] Start: 05-02-2025 End: 05-02-[address] Guanakito Reno MD Work Phone: -[facility] Start: 05-01-2025 ambulatory Josafat ORTEZ Facil ity:[facility] Start: 05-01-[address] Josafat juarez MD -[facility] Start: 04-29-[address] Josafat juarez MD -[facility] Start: 04-29-2025 End: 04-29-2025 ambulatory Josafat ORTEZ Facility:[facility] Start: 04-24-20[facility] Start: 04-24-[address] Josafat juarez MD -[facility] Start: 04-17-[address] Bianka Gonzalez MD -[facility] Start: 04-17-2025 End: 04-17-2025 ambulatory Bianka ROTEZ Facility:[facility] Start: 04-15-2025 End: 04-15-2025 Telephone encounter Twin Cole [facility] Ambulatory Telemanagement Comment on above: Anticoagulation Tele phone Fu (Home INR result) Start: 04-14-2025 End: 04-14-2025 Telephone encounter Guanakito Reno MD Work Phone: [facility] Comment on above: Patient Question Start: 04-14-2025 ambulatory Josafat García Facility :[facility] Start: 04-14-[address] Josafat García MD -Physical Therapy Work Phone: Start: 04-08-2025 End: 04-08-2025 Refill Carolina Landeros STONE BANKER.ELECTRICIAN SHIP Work Phone: [facility] Comment on above: Refill Request Start: 03-28-2025 End: 03-28-2025 Telephone encounter Guanakito Reno MD Work Phone: [facility] [place] Comment on above: Faxed to Pepe Castellon Start: 03-24-2025 End: 03-24-2025 Telephone encounter Alejandro Molina [facility] Ambulatory Telemanagement Comment on above: Anticoagulation Tele phone Fu (Home INR Result ) Start: 03-07-2025 End: 03-07-[address] Josafat García MD -[facility] Work Phone: Start: 03-07-2025 End: 03-07-2025 ambulatory Guanakito Reno Facility:[facility] Start: 03-06-2025 End: 03-06-2025 ambulatory CAROLINA LANDEROS Facility:[facility] Start: 03-05-2025 End: 03-06-2025 [facility] Start: 02-20-2025 End: 02-20-2025 Telephone encounter Jimmy Carrizales [facility] Ambulatory Telemanagement Comment on above: Anticoagulation Tele phone Fu (Home INR) Start: 01-31-2025 End: 01-31-2025 Telephone encounter Kamran Ayon [facility]ulatory Telemanagement Comment on above: Anticoagulation Tele phone Fu (INR Home Test Result) Start: 01-23-2025 End: 03-25-2025 Follow-up encounter Carolina Landeros STONE BANKER.ELECTRICIAN SHIP Work Phone: [facility] Start: 01-21-2025 End: 01-21-2025 ambulatory CAROLINA SUPPAN Facility:[facility] Start: 01-21-2025 End: 01-21-2025 Office outpatient visit 25 minutes Carolina Landeros STONE BANKER.ELECTRICIAN SHIP Work Phone: [facility] Comment on above: Hyperlipidemia, mixe [...] (HCC); Chronic renal disease, stage IV (HCC); correction (current) use of anticoagulants; Obesity, Class II, BMI 35-39.9; Viral conjunctivitis; Seasonal allergic rhinitis, unspecified trigger; Bilateral impacted cerumen Start: 01-08-2025 End: 01-15-2025 Telephone encounter Ruthie Cuevas [facility]ulatory Telemanagement Comment on above: Anticoagulation Foll ow Up (Home INR result ) Start: 01-07-2025 End: 01-08-2025 Refill Corrina Lennon APRN.CNP Work Phone: [facility] Comment on above: Refill Request Start: 12-30-2024 End: 12-30-2024 Telephone encounter [facility]ulatory Telemanagement Comment on above: Anticoagulation Tele phone Fu (Home INR result) Start: 12-11-2024 End: 12-11-2024 Telephone encounter Jimmy Carrizales [facility]ulatory Telemanagement Comment on above: Anticoagulation Tele phone Fu (Home INR) Start: 11-26-2024 End: 11-26-2024 Telephone encounter [facility] Cole [facility]ulatory Telemanagement Comment on above: Anticoagulation Tele phone Fu (Home INR result) Start: 10-28-2024 End: 10-28-2024 Telephone encounter Alejandro Molina [facility]ulatory Telemanagement Comment on above: Anticoagulation Tele phone Fu (Home INR Result ) Start: 10-21-2024 End: 10-21-2024 Telephone encounter Guanakito Reno MD Work Phone: [facility] Comment on above: Patient Update; Rozina ent Question Start: 10-01-2024 End: 10-01-2024 Telephone encounter [facility]ulatory Telemanagement Comment on above: Anticoagulation Tele phone Fu (Home INR result) Start: 08-26-2024 End: 08-26-2024 Telephone encounter Alejandro Molina [facility]ulatory Telemanagement Comment on above: Anticoagulation Tele phone Fu (Home INR Result ) Start: 08-19-2024 End: 08-19-2024 ambulatory Melania Galindo RN Chief Embalmer Management Comment on above: ACM LUIS RN ( Medication Adherence Review per Request of Payor ) Start: 08-16-2024 End: 08-16-2024 Telephone encounter Jimmy GARDUNO [facility] Start: 08-06-2024 End: 08-06-2024 Office outpatient new 45 minutes Laura Iraheta MD Work Phone: [facility] Comment on above: Bilateral carotid ar jeanne stenosis (Primary Dx); History of carotid endarterectomy Start: 07-30-2024 End: 07-30-2024 ambulatory Josselyn Mayer APRN.ELECTRICIAN SHIP Work Phone: [facility] [place] Start: 07-30-2024 End: 08-01-2024 Telephone encounter Josselyn Mayer APRN.ELECTRICIAN SHIP Work Phone: [facility] [place] Comment on above: 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 Start: 07-25-2024 End: 07-26-2024 Telephone encounter Jimmy Carrizales [facility]ulatory Telemanagement Comment on above: Anticoagulation (Pat ient update) Start: 07-23-2024 End: 07-23-[address] (I-Stat) [facility] Start: 07-23-2024 End: 07-23-2024 Subsequent hospital visit by physician [facility] 1 (I-Stat) RADIO [facility] Comment on above: Nonrheumatic aortic valve stenosis [I35.0] Start: 07-15-2024 End: 07-15-2024 Orders Only Valerie Brito APRN.ELECTRICIAN SHIP Work Phone: [facility] Comment on above: Paroxysmal atrial fi brillation (HCC) (Primary Dx); Aortic valve stenosis, etiology of cardiac valve disease unspecified Nonrheumatic aortic valve stenosis (Primary Dx); Paroxysmal atrial fibrillation (HCC) Patient Update Results Start: 07-12-2024 End: 07-12-2024 Telephone encounter Guanakito Reno MD Work Phone: [facility] [place] Start: 07-12-2024 End: 07-15-2024 Patient encounter procedure Guanakito Reno MD Work Phone: [facility] [place] Comment on above: Essential hypertensi on (Primary [...] disease, stage IV (HCC); Mixed dementia (HCC); 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 Work Phone: Start: 07-05-2024 End: 07-05-2024 Telephone encounter Annamarie Garcia [facility] Comment on above: Anticoagulation Tele phone Fu Start: 2024 End: 2024 Telephone encounter Guanakito Reno MD Work Phone: Pul[facility] Start: 06-18-2024 End: 06-18-2024 Telephone encounter Jimmy Carrizales [facility] Ambulatory Telemanagement Comment on above: Anticoagulation Tele phone Fu (Home INR) Start: 06-06-2024 End: 06-06-2024 Office outpatient visit 15 minutes Carolina Landeros STONE BANKER.ELECTRICIAN SHIP Work Phone: [facility] [place] Comment on above: Aortic valve stenosi s, etiology of cardiac valve disease unspecified (Primary Dx); Hypertensive kidney disease with stage 3b chronic kidney disease (HCC); Paroxysmal atrial fibrillation (HCC); Benign prostatic hyperplasia without lower urinary tract symptoms; Anemia, unspecified type Start: 06-05-2024 End: 06-05-2024 Patient encounter procedure Valerie Connelly STONE BANKER.ELECTRICIAN SHIP Work Phone: [facility] Comment on above: Blood pressure check (Primary Dx); Leg swelling Start: 06-05-2024 End: 06-05-2024 Patient encounter status Valerie Connelly STONE BANKER.ELECTRICIAN SHIP Work Phone: 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 Results Start: 05-17-2024 Telephone encounter Dorothy Joshua [facility] Comment on above: Anticoagulation Tele phone Fu Start: 05-06-2024 End: 05-06-2024 Office outpatient visit 15 minutes Corrina Lennon APRN.ELECTRICIAN SHIP Work Phone: [facility] [place] Comment on above: Essential hypertensi on (Primary Dx); Hypertensive kidney disease with stage 3 chronic kidney disease, unspecified whether stage 3a or 3b CKD (HCC); Anemia, unspecified type Start: 05-02-2024 End: 05-02-2024 Subsequent hospital visit by physician [facility] Work Phone: Radiology Comment on above: Renal insufficiency [N28.9] Start: 04-24-2024 Telephone encounter [facility] Tele[facility] Comment on above: Anticoagulation Tele phone Fu (Home INR) Start: 04-19-2024 Telephone encounter Guanakito Reno MD Work Phone: [facility] [place] Comment on above: Results Start: 04-08-2024 End: 04-08-2024 Office outpatient visit 25 minutes Corrina Lennon APRN.CNP Work Phone: [facility] [place] Comment on above: Essential hypertensi [...] Telephone encounter Guanakito Reno MD Work Phone: [facility] [place] Comment on above: Results Start: 04-04-2024 Telephone encounter Jimmy Carrizales [facility] Ambulatory Telemanagement Comment on above: Anticoagulation Tele phone Fu (Home INR) Start: 03-26-2024 End: 03-26-2024 Patient encounter procedure Guanakito Reno MD Work Phone: [facility] Comment on above: Essential hypertensi [...] or 3b CKD (HCC); Mixed dementia (HCC); correction (current) use of anticoagulants; Obesity, Class II, [...] payor) Start: 03-07-2024 Telephone encounter Jimmy Carrizales [facility]ulatory Telemanagement Comment on above: Anticoagulation Tele phone Fu Start: 02-14-2024 Telephone encounter [facility]ulatory Telemanagement Comment on above: Anticoagulation Tele phone Fu (Home INR results ) Start: 01-17-2024 Refill Guanakito Reno MD Work Phone: [facility] [place] Comment on above: Refill Request requesting medicatio n on list Start: 01-15-2024 Telephone encounter [facility] Ambulatory Telemanagement Comment on above: Anticoagulation Tele phone Fu (Home INR Result ) Start: 12-22-2023 End: 12-22-2023 Office outpatient visit 15 minutes Carolina Landeros STONE BANKER.CORRECTIONS IDENTIFICATION TECHNICIAN Work Phone: [facility] [place] Comment on above: Abrasion of arm, lef t, initial encounter (Primary Dx); Chronic insomnia Start: 12-21-2023 ambulatory Guanakito Reno MD Work Phone: [facility] [place] Comment on above: skin laceration Start: 12-21-2023 Telephone encounter Jimmy Carrizales [facility] Ambulatory Telemanagement Comment on [...] payer) Start: 08-22-2023 Telephone encounter Twin Cole [facility] Ambulatory Telemanagement Comment on above: Anticoagulation Tele phone Fu (Home INR result) Start: 08-16-2023 Telephone encounter Guanakito Reno MD Work Phone: [facility] [place] Comment on above: Results Start: 08-15-2023 Telephone encounter Guanakito Reno MD Work Phone: [facility] [place] Comment on above: Results Start: 08-14-2023 End: 08-14-2023 Patient encounter procedure Guanakito Reno MD Work Phone: [facility] [place] Comment on above: Onychomycosis (Prima ry [...] 07-04-2023 Refill Guanakito Reno MD Work Phone: [facility] Comment on above: Refill Request Start: 2023 ambulatory Lizette Cardenas RN [facility] Comment on above: QI SMITH RN ( Medication Adherence review per request of payer) Start: 05-22-2023 Telephone encounter [facility] Tele[facility] Comment on above: Anticoagulation Tele phone Fu (Home INR Result ) Start: 04-24-2023 Telephone encounter [facility] Tele[facility] Comment on above: Anticoagulation Tele phone Fu (Home INR Result ) Start: 04-19-2023 Refill Guanakito Reno MD Work Phone: [facility] [place] Comment on above: Refill Request Start: 03-28-2023 Telephone encounter [facility] Ambulatory Telemanagement Comment on above: Anticoagulation Tele phone Fu (Home INR result) Start: 02-13-2023 End: 02-13-2023 Patient encounter procedure Pam Reddy MD Work Phone: Cardiology Comment on above: Syncope, unspecified syncope type (Primary Dx); Aortic valve disorder Start: 02-06-2023 End: 02-06-2023 Patient encounter procedure Guanakito Reno MD Work Phone: [facility] Comment on above: Essential hypertensi [...] 01-16-2023 Refill Guanakito Reno MD Work Phone: [facility] Comment on above: Refill Request [...] INR expected) Start: 10-19-2022 Telephone encounter Ruthie Cuevas R [facility] Ambulatory Telemanagement Comment on above: Anticoagulation Tele phone Fu (Home INR result) Start: 10-04-2022 End: 10-04-2022 Patient encounter procedure Alondra Prescott DO Work Phone: Vascular Surgery Comment on above: Bilateral carotid ar jeanne stenosis (Primary Dx) Start: 09-23-2022 Refill Guanakito Reno MD Work Phone: [facility] Comment on above: Orders; Refill Reque st Start: 09-21-2022 Telephone encounter Ruthie Cuevas [facility] Ambulatory Telemanagement Comment on above: Anticoagulation Tele phone Fu (Home INR result expected) Start: 09-07-2022 ambulatory Lizette Cardenas [facility] Comment on above: QI SMITH RN ( [...] disorder Start: 08-01-2022 Telephone encounter Alejandro Molina [facility] Ambulatory Telemanagement Comment on above: Anticoagulation Tele phone Fu (Home INR Result) Start: 07-22-2022 Refill Guanakito Reno MD Work Phone: [facility] Comment on above: Refill Request Start: 2022 Telephone encounter [facility] Telemanagement Comment on above: Anticoagulation (INR result ) Start: 06-14-2022 ambulatory Nirmala Lim MA [facility] Comment on above: Population Health Na vigation Outreach ([facility] care gaps) Start: 06-06-2022 Telephone encounter [facility] Telemanagement Comment on above: Anticoagulation (Gabrielle e INR) Start: 05-19-2022 Refill Guanakito Reno MD Work Phone: [facility] Comment on above: Refill Request Start: 05-16-2022 Telephone encounter [facility] Telemanagement Comment on above: Anticoagulation Tele phone Fu (Home INR Result) Start: 04-25-2022 Telephone encounter Val Oliver [facility] Comment on [...] ) Start: 02-17-2022 Telephone encounter Jazmyn Garcia [facility] Ambulatory Telemanagement Comment on above: Anticoagulation Tele phone Fu Start: 02-08-2022 Telephone encounter [facility] Ambulatory Telemanagement Comment on above: Anticoagulation Tele phone Fu (Home INR result) Start: 01-25-2022 Telephone encounter [facility] Ambulatory Telemanagement Comment on above: Anticoagulation Tele phone Fu (Home INR result) Start: 01-19-2022 End: 01-19-2022 Patient encounter procedure Guanakito Reno MD Work Phone: [facility] Comment on above: Essential hypertensi [...] Fu Start: 06-07-2018 Ambulatory VIPIN CARDONA Facility :[facility] Start: 11-24-2017 End: 11-24-2017 Ambulatory VIPIN CARDONA Facility:[facility] Procedures Date Procedure Procedure Detail [...] Velasquez with bovine patch angioplasty, 04/17/2014 @ [facility] History of carotid endarterectomy History of carotid endarterectomy Guanakito Reno MD Work Phone: History of carotid endarterectomy History of carotid endarterectomy Laura Iraheta MD Work Phone: Plan of Treatment Date Care Activity Detail Author Start: 04-22-[address] [facility] Start: 01-21-2026 Diabetic foot examination Diabetic Foot Exam [facility] Start: 01-21-2026 Hepatitis B surface antibody level LDL Cholesterol [facility] Start: 08-06-2025 End: 09-05-2025 US Carotid arteries - bilateral US CAROTID BILATERAL Radiology Routine Bilateral carotid artery stenosis History of carotid endarterectomy Expected: 08/06/2025 (Approximate), Expires: 09/05/2025 [facility] Work Phone: Comment on above: Expected: 08/06/2025 (Approximate), Expi res: 09/05/2025 Start: 07-23-2025 End: 07-23-2025 Patient encounter procedure 07/23/2025 3:20 PM EDT Office Visit Family Medicine [facility] [address] [place], [place] [id number] Guanakito Reno MD [address] [place], [place] [id number] 6 month exam [facility] Comment on above: 6 month exam Start: 07-23-2025 Hemoglobin A1c measurement HbA1C [facility] Start: 07-12-2025 Covid-19 Vaccine ( season) Covid-19 Vaccine ( season) [facility] Comment on above: Postponed from 01/09/2025 (Declined at t his time) Start: 07-12-2025 Hepatitis B surface antibody level LDL Cholesterol [facility] Start: 06-16-2025 Influenza vaccination Influenza Vaccine (#1) [facility] Start: 05-06-2025 Annual PCP Team Chronic Disease Visit Annual PCP Team Chronic Disease Visit [facility] Start: 05-06-2025 BP Controlled (<130/80) BP Controlled (<130/80) [facility] Start: 05-02-2025 Plain X-ray of shoulder Shoulder min 2 Views [facility] Start: 05-02-2025 XR Shoulder GE [address] [facility] Start: 04-19-2025 Complete blood count Hemoglobin/Hematocrit [facility] Start: 04-19-2025 Creatinine measurement Serum Creatinine [facility] Start: 04-08-2025 Annual PCP Team Chronic Disease Visit Annual PCP Team Chronic Disease Visit [facility] Start: 04-08-2025 BP Controlled (<130/80) BP Controlled (<130/80) [facility] Start: 04-04-2025 Complete blood count Hemoglobin/Hematocrit [facility] Start: 04-04-2025 Creatinine measurement Serum Creatinine [facility] Start: 03-26-2025 Annual PCP Team Chronic Disease Visit Annual PCP Team Chronic Disease Visit [facility] Start: 03-26-2025 BP Controlled (<130/80) BP Controlled (<130/80) [facility] Start: 03-26-2025 Covid-19 Vaccine () Covid-19 Vaccine () [facility] Comment on above: Postponed from 12/14/2023 (Declined at t his time) Start: 03-26-2025 Shingrix Vaccine (1 of 2) Shingrix Vaccine (1 of 2) [facility] Comment on above: Postponed from 1993 (Declined at t his time) Start: 03-25-2025 BP Controlled (<130/80) BP Controlled (<130/80) [facility] Start: 03-25-2025 Complete blood count Hemoglobin/Hematocrit [facility] Start: 03-25-2025 Creatinine measurement Serum Creatinine [facility] Start: 01-21-2025 End: 01-21-2025 Patient encounter procedure 01/21/2025 3:40 PM EDT Office Visit Family Lin Brennan [address] [place] [address] Carolina Landeros, [employer] [address] [facility] [place] [address] 6 month follow up Family Lin Brennan Comment on above: 6 month follow up Start: 01-21-2025 End: 04-22-2025 CBC W Auto Differential panel - Blood [facility] Comment on above: Expected: 01/21/2025, Expires: Start: 01-21-2025 End: 04-22-2025 Cobalamin (Vitamin B12) [Mass/volume] in Serum or Plasma [facility] Comment on above: Expected: 01/21/2025, Expires: Start: 01-21-2025 End: 04-22-2025 Comprehensive metabolic 2000 panel - Serum or Plasma [facility] Work Phone: Comment on above: Expected: 01/21/2025, Expires: Start: 01-21-2025 End: 04-22-2025 Hemoglobin A1c in Blood [facility] Comment on above: Expected: 01/21/2025, Expires: Start: 01-21-2025 End: 04-22-2025 LIPID PANEL, NONFASTING [facility] Comment on above: Expected: 01/21/2025, Expires: Start: 01-21-2025 End: 04-22-2025 Magnesium [Mass/volume] in Serum or Plasma [facility] Comment on above: Expected: 01/21/2025, Expires: Start: 01-13-2025 End: 01-13-2025 Patient encounter procedure 01/13/2025 10:40 AM EDT Office Visit Family Lin Brennan [address] [place] [address] Guanakito Reno MD [address] [place] [address] 6 month follow up Family Lin Brennan Comment on above: 6 month follow up Start: 01-09-2025 Hemoglobin A1c measurement HbA1C [facility] Start: 12-21-2024 BP Controlled (<130/80) BP Controlled (<130/80) [facility] Start: 10-16-2024 Advance Directive Discussion Advance Directive Discussion [facility] Start: 10-16-2024 Medicare Advantage Annual Wellness Visit Medicare Advantage Annual Wellness Visit [facility] Start: 10-04-2024 Hemoglobin A1c measurement HbA1C [facility] Start: 08-14-2024 3 comp foot exam completed Diabetic Foot Exam [facility] Start: 08-14-2024 Annual PCP Team Chronic Disease Visit Annual PCP Team Chronic Disease Visit [facility] Start: 08-14-2024 BP Controlled (<130/80) BP Controlled (<130/80) [facility] Start: 08-14-2024 Complete blood count Hemoglobin/Hematocrit [facility] Start: 08-14-2024 Creatinine measurement Serum Creatinine [facility] Start: 08-14-2024 Diabetic foot examination Diabetic Foot Exam [facility] Start: 08-14-2024 Hemoglobin/Hematocrit Hemoglobin/Hematocrit [facility] Start: 08-14-2024 Hepatitis B surface antibody level LDL Cholesterol [facility] Start: 08-14-2024 Hepatitis B Vaccine (1 of 3 - Risk 3-dose series) Hepatitis B Vaccine (1 of 3 - Risk 3-dose series) [facility] Comment on above: Postponed from 2003 (Declined at t his time) Start: 08-14-2024 RSV Vaccine (1 - 1-dose 60+ series) RSV Vaccine (1 - 1-dose 60+ series) [facility] Comment on above: Postponed from 2003 (Declined at t his time) Start: 08-14-2024 RSV Vaccine (1 - 1-dose 75+ series) RSV Vaccine (1 - 1-dose 75+ series) [facility] Comment on above: Postponed from 2018 (Declined at t his time) Start: 08-14-2024 Serum Creatinine Serum Creatinine [facility] Start: 08-06-2024 End: 08-06-2024 Patient encounter procedure 08/06/2024 1:00 PM EDT Office Visit [facility] [address] [place] [address] Laura Iraheta MD [address] [place], [place] [id number] Referral from Josselyn Mayer - carotid stenosis 05/02/24 Carotid US [facility] Comment on above: Referral from Josselyn Mayer - carotid s tenosis 05/02/24 Carotid US Start: 07-29-2024 End: 07-29-2024 ambulatory 07/29/2024 11:15 AM EDT Results Only [place] [place] [facility] [address] [place] [address] [facility] Start: 07-23-2024 End: 07-23-2024 Admission to same day surgery center 07/23/2024 10:00 AM EDT - 07/23/2024 11:30 AM EDT Surgery [facility] [address] [place] [address] Pam Reddy MD [address], [address] [place] [address] (Fax) CORONARY CATH RIGHT/LEFT HEART ANGIO INTRAPROCEDURAL INJECT IMAGING SUPERVISIO/INTERPRETATIO N [facility] Comment on above: CORONARY CATH RIGHT/LEFT HEART ANGIO INT RAPROCEDURAL INJECT IMAGING SUPERVISIO/INTERPRETATION Start: 07-23-2024 End: 07-23-2024 R & l hrt cath winjx hrt art& l ventr img CORONARY CATH RIGHT/LEFT HEART ANGIO INTRAPROCEDURAL INJECT IMAGING SUPERVISIO/INTERPRETATIO N Valvular heart disease 07/23/2024 10:00 AM EDT [facility] Start: 07-23-2024 Subsequent hospital visit by physician 07/23/2024 10:00 AM EDT Hospital Encounter [facility] [address] [place] [address] Pam Reddy MD [address], [address] [place] [address] Valvular heart disease [I38] [facility] Comment on above: Valvular heart disease [I38] Start: 07-23-2024 End: 07-23-2024 Patient encounter procedure 07/23/2024 7:30 AM EDT Appointment RADIO CT [facility] [address] [place] [address] 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.0]; Encounter for preprocedural cardiovascular examination [Z01.810] [facility] Comment on above: 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.0]; Encounter for preprocedural cardiovascular examination [Z01.810] Start: 07-16-2024 End: 07-16-2024 Patient encounter procedure [facility] Comment on above: Referral from Josselyn medrano Referral from Effie Mayer - carotid stenosis 05/02/24 Carotid US Start: 07-15-2024 End: 10-14-2024 PT panel - Platelet poor plasma by Coagulation assay PROTHROMBIN TIME Lab Routine Nonrheumatic aortic valve stenosis Paroxysmal atrial fibrillation (HCC) Expected: 07/15/2024, Expires: 10/14/2024 [facility] Work Phone: Comment on above: Expected: 07/15/2024, Expires: Start: 07-12-2024 End: 10-11-2024 CBC W Auto Differential panel - Blood [facility] Comment on above: Expected: 07/12/2024, Expires: Start: 07-12-2024 End: 10-11-2024 Comprehensive metabolic 2000 panel - Serum or Plasma [facility] Comment on above: Expected: 07/12/2024, Expires: Start: 07-12-2024 End: 10-11-2024 Hemoglobin A1c in Blood [facility] Work Phone: Comment on above: Expected: 07/12/2024, Expires: Start: 07-12-2024 End: 10-11-2024 LIPID PANEL, NONFASTING [facility] Comment on above: Expected: 07/12/2024, Expires: Start: 07-12-2024 End: 07-12-2024 Patient encounter procedure 07/12/2024 11:20 AM EDT Office Visit Family Medicine [facility] [address] [place] [address] Guanakito Reno MD [address] [place] [address] 2 month follow up- stool sample,kidney and meds [facility] Comment on above: 2 month follow up- stool sample,kidney a nd meds Start: 07-10-2024 End: 10-09-2024 Basic metabolic 2000 panel - Serum or Plasma BASIC METABOLIC PANEL Lab Routine Nonrheumatic aortic valve stenosis Expected: 07/10/2024, Expires: 10/09/2024 [facility] Comment on above: Expected: 07/10/2024, Expires: Start: 07-10-2024 End: 10-09-2024 CBC panel - Blood by Automated count COMPLETE BLOOD COUNT Lab Routine Nonrheumatic aortic valve stenosis Expected: 07/10/2024, Expires: 10/09/2024 [facility] Comment on above: Expected: 07/10/2024, Expires: Start: 07-10-2024 End: 10-09-2024 Natriuretic peptide.B prohormone N-Terminal [Mass/volume] in Serum or Plasma NT PRO BNP Lab Routine Nonrheumatic aortic valve stenosis Dyspnea on exertion Expected: 07/10/2024, Expires: 10/09/2024 [facility] Comment on above: Expected: 07/10/2024, Expires: Start: 07-10-2024 End: 10-09-2024 PT panel - Platelet poor plasma by Coagulation assay PROTHROMBIN TIME Lab Routine Nonrheumatic aortic valve stenosis Expected: 07/10/2024, Expires: 10/09/2024 [facility] Comment on above: Expected: 07/10/2024, Expires: Start: 07-10-2024 End: 07-10-2024 Patient encounter procedure [facility] Comment on above: Valve Clinic- Initial Visit- 5M Walk,EKG ,KCCQ Start: 06-16-2024 Covid-19 Vaccine ( season) Covid-19 Vaccine ( season) [facility] Start: 06-16-2024 Covid-19 Vaccine ( season) Covid-19 Vaccine ( season) [facility] Start: 06-16-2024 Influenza vaccination Influenza Vaccine (#1) [place] [facility] Start: 06-06-2024 End: 06-06-2024 Patient encounter procedure 06/06/2024 11:20 AM EDT Office Visit Family Medicine [facility] [address] [place], [place] [id number] Carolina Landeros, [employer] [address] [place], [place] [phone] Urgent care follow up [facility]ole Comment on above: Urgent care follow up Start: 05-06-2024 End: 05-06-2024 Patient encounter procedure 05/06/2024 5:40 PM EDT Office Visit [facility] Lin Brennan [address] [place] [address] Corrina Lennon APRN.[employer] [address] [place] [address] 1 month follow up [facility] Lin Brennan Comment on above: 1 month follow up Start: 05-02-2024 End: 05-02-2024 Patient encounter procedure Radiology Comment on above: Renal insufficiency [N28.9] History of carotid e ndarterectomy [Z98.890] Syncope, unspecified syncope type [R55]; Aortic valve disorder [I35.9] Start: 04-08-2024 End: 04-08-2024 Patient encounter procedure 04/08/2024 3:00 PM EDT Office Visit [facility] Lin Brennan [address] [place] [address] Corrina Lennon APRN.[employer] [address] [place] [address] 2 w f/u [facility] Lin Brennan Comment on above: 2 w f/u Start: 04-08-2024 End: 03-25-2025 Echocardiography ECHO Cardiology Routine Syncope, unspecified syncope type Aortic valve disorder Expected: 04/08/2024, Expires: 03/25/2025 [facility] Comment on above: Expected: 04/08/2024, Expires: 5 Start: 04-05-2024 End: 07-05-2024 Basic metabolic 2000 panel - Serum or Plasma BASIC METABOLIC PANEL Lab Routine CKD (chronic kidney disease) stage 4, 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/min ([facility]) Anemia, unspecified type Expected: 04/05/2024, Expires: 07/05/2024 [facility] Comment on above: Expected: 04/05/2024, Expires: 4 Start: 04-05-2024 End: 07-05-2024 CBC W Auto Differential panel - Blood COMPLETE BLOOD COUNT AND DIFFERENTIAL Lab Routine CKD (chronic kidney disease) stage 4, 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/min (HCC) Anemia, unspecified type Expected: 04/05/2024, Expires: 07/05/2024 [facility] Comment on above: Expected: 04/05/2024, Expires: Start: 03-26-2024 End: 03-26-2024 Patient encounter procedure 03/26/2024 4:40 PM EDT Office Visit [facility] Lin Brennan [address] [place] [id number] Guanakito Reno MD [address] [place] [id number] 3 month f/u [facility] Lin Brennan Comment on above: 3 month f/u Start: 03-26-2024 End: 06-25-2024 Basic metabolic 2000 panel - Serum or Plasma BASIC METABOLIC PANEL Lab Routine Renal insufficiency Expected: 03/26/2024, Expires: 06/25/2024 [facility] Comment on above: Expected: 03/26/2024, Expires: Start: 03-26-2024 End: 03-26-2025 CBC W Auto Differential panel - Blood COMPLETE BLOOD COUNT AND DIFFERENTIAL Lab Routine Anemia, unspecified type Expected: 03/26/2024, Expires: 03/26/2025 [facility] Comment on above: Expected: 03/26/2024, Expires: Start: 03-26-2024 End: 03-26-2025 Cobalamin (Vitamin B12) [Mass/volume] in Serum or Plasma VITAMIN B12 Lab Routine Anemia, unspecified type Expected: 03/26/2024, Expires: 03/26/2025 [facility] Comment on above: Expected: 03/26/2024, Expires: Start: 03-26-2024 End: 03-26-2025 Ferritin [Mass/volume] in Serum or Plasma FERRITIN Lab Routine Anemia, unspecified type Expected: 03/26/2024, Expires: 03/26/2025 [facility] Comment on above: Expected: 03/26/2024, Expires: 5 Start: 03-26-2024 End: 03-26-2025 Folate [Mass/volume] in Serum or Plasma FOLATE, SERUM Lab Routine Anemia, unspecified type Expected: 03/26/2024, Expires: 03/26/2025 [facility] Comment on above: Expected: 03/26/2024, Expires: Start: 03-26-2024 End: 06-25-2024 Hemoglobin A1c in Blood HEMOGLOBIN A1C Lab Routine Type 2 diabetes mellitus with stage 3 chronic kidney disease, without long-term current use of insulin, unspecified whether stage 3a or 3b CKD (HCC) Expected: 03/26/2024, Expires: 06/25/2024 [facility] Comment on above: Expected: 03/26/2024, Expires: 4 Start: 03-26-2024 End: 03-26-2025 Hemoglobin.gastrointestin al.lower [Presence] in Stool by Immunoassay IMMUNOCHEMICAL FECAL OCCULT BLOOD TEST Lab Routine Anemia, unspecified type Expected: 03/26/2024, Expires: 03/26/2025 [facility] Comment on above: Expected: 03/26/2024, Expires: Start: 03-26-2024 End: 03-26-2025 Iron and Iron binding capacity panel - Serum or Plasma IRON AND TIBC Lab Routine Anemia, unspecified type Expected: 03/26/2024, Expires: 03/26/2025 [facility] Comment on above: Expected: 03/26/2024, Expires: Start: 03-25-2024 End: 03-25-2024 Patient encounter procedure 03/25/2024 2:40 PM EDT Office Visit [facility] [address] [facility] [place] [address] Pam Reddy MD [address], [address] [place] [address] 1 yr f/u Cardiology Comment on above: 1 yr f/u Start: 02-14-2024 BP CONTROLLED (<130/80) BP CONTROLLED (<130/80) [facility] Start: 02-13-2024 Hemoglobin A1c measurement HbA1C [facility] Start: 02-13-2024 Hemoglobin A1c/Hemoglobin.total in Blood HbA1C [facility] Start: 02-07-2024 3 comp foot exam completed DIABETIC FOOT EXAM [facility] Start: 02-07-2024 ANNUAL PCP TEAM CHRONIC DISEASE VISIT ANNUAL PCP TEAM CHRONIC DISEASE VISIT [facility] Start: 02-07-2024 BP CONTROLLED (<130/80) BP CONTROLLED (<130/80) [facility] Start: 02-07-2024 SHINGRIX VACCINE (1 of 2) SHINGRIX VACCINE (1 of 2) [facility] Comment on above: Postponed from 1993 (Insurance Cov erage) Start: 12-14-2023 Covid-19 Vaccine () Covid-19 Vaccine () [facility] Start: 10-16-2023 Advance Directive Discussion Advance Directive Discussion [facility] Start: 10-04-2023 BP CONTROLLED (<130/80) BP CONTROLLED (<130/80) [facility] Start: 08-15-2023 End: 08-15-2024 Basic metabolic 2000 panel - Serum or Plasma BASIC METABOLIC PNL Lab Routine Renal insufficiency Expected: 08/15/2023, Expires: 08/15/2024 [facility] Work Phone: Comment on above: Expected: 08/15/2023, Expires: 4 Start: 08-15-2023 BP CONTROLLED (<130/80) BP CONTROLLED (<130/80) [facility] Start: 08-15-2023 End: 11-14-2023 Urinalysis complete panel - Urine URINALYSIS, WITH MICROSCOPIC Lab Routine Renal insufficiency Expected: 08/15/2023, Expires: 11/14/2023 [facility] Work Phone: Comment on above: Expected: 08/15/2023, Expires: 4 Start: 06-16-2023 Covid-19 Vaccine () Covid-19 Vaccine () [facility] Start: 06-16-[address] [facility] Start: 06-08-2023 COVID-19 VACCINE (5 - Moderna series) COVID-19 VACCINE (5 - Moderna series) [facility] Start: 03-29-2023 BP CONTROLLED (<130/80) BP CONTROLLED (<130/80) [facility] Start: 02-20-2023 End: 02-14-2024 Echocardiography ECHO Cardiology Routine Syncope, unspecified syncope type Aortic valve disorder Expected: 02/20/2023, Expires: 02/14/2024 [facility] Work Phone: Comment on above: Expected: 02/20/2023, Expires: 4 Start: 02-06-2023 End: 04-08-2023 ALBUMIN/CREAT RATIO RND UR ALBUMIN/CREAT RATIO RND UR Lab Routine Type 2 diabetes mellitus with stage 3 chronic kidney disease, without long-term current use of insulin, unspecified whether stage 3a or 3b CKD (HCC) Expected: 02/06/2023, Expires: 04/08/2023 [facility] Work Phone: Comment on above: Expected: 02/06/2023, Expires: 3 Start: 02-06-2023 End: 04-08-2023 CBC W Auto Differential panel - Blood CBC + DIFF Lab Routine Type 2 diabetes mellitus with stage 3 chronic kidney disease, without long-term current use of insulin, unspecified whether stage 3a or 3b CKD (HCC) Expected: 02/06/2023, Expires: 04/08/2023 [facility] Work Phone: Comment on above: Expected: 02/06/2023, Expires: 3 Start: 02-06-2023 End: 04-08-2023 Comprehensive metabolic 2000 panel - Serum or Plasma COMP METABOLIC PANEL Lab Routine Type 2 diabetes mellitus with stage 3 chronic kidney disease, without long-term current use of insulin, unspecified whether stage 3a or 3b CKD (HCC) Expected: 02/06/2023, Expires: 04/08/2023 [facility] Work Phone: Comment on above: Expected: 02/06/2023, Expires: 3 Start: 02-06-2023 End: 04-08-2023 Hemoglobin A1c in Blood HGB A1C Lab Routine Type 2 diabetes mellitus with stage 3 chronic kidney disease, without long-term current use of insulin, unspecified whether stage 3a or 3b CKD (HCC) Expected: 02/06/2023, Expires: 04/08/2023 [facility] Work Phone: Comment on above: Expected: 02/06/2023, Expires: 3 Start: 02-06-2023 End: 04-08-2023 Lipid 1996 panel - Serum or Plasma LIPID PANEL BASIC Lab Routine Type 2 diabetes mellitus with stage 3 chronic kidney disease, without long-term current use of insulin, unspecified whether stage 3a or 3b CKD (HCC) Expected: 02/06/2023, Expires: 04/08/2023 [facility] Work Phone: Comment on above: Expected: 02/06/2023, Expires: 3 Start: 01-19-2023 ANNUAL PCP TEAM CHRONIC DISEASE VISIT ANNUAL PCP TEAM CHRONIC DISEASE VISIT [facility] Start: 01-19-2023 BP CONTROLLED (<130/80) BP CONTROLLED (<130/80) [facility] Start: 01-18-2023 HEMOGLOBIN/HEMATOCRIT HEMOGLOBIN/HEMATOCRIT [facility] Start: 01-18-2023 Hepatitis B screening URINE ALBUMIN:CREATININE RATIO [facility] Start: 01-18-2023 SERUM CREATININE SERUM CREATININE [facility] Start: 12-21-2022 Hepatitis B surface antibody level LDL CHOLESTEROL [facility] Start: 10-16-2022 ADVANCE DIRECTIVE DISCUSSION ADVANCE DIRECTIVE DISCUSSION [facility] Start: 08-22-2022 End: 08-15-2023 Echocardiography ECHO Cardiology Routine Nonrheumatic aortic valve stenosis Expected: 08/22/2022, Expires: 08/15/2023 [facility] Work Phone: Comment on above: Expected: 08/22/2022, Expires: 3 Start: 07-20-2022 Hemoglobin A1c/Hemoglobin.total in Blood HBA1C [facility] Start: 06-16-[address] [facility] Start: 04-12-2022 COVID-19 VACCINE (4 - Booster for Moderna series) COVID-19 VACCINE (4 - Booster for Moderna series) [facility] Start: 02-18-2022 End: 04-20-2022 Basic metabolic 2000 panel - Serum or Plasma BASIC METABOLIC PNL Lab Routine Essential hypertension with goal blood pressure less than 140/90 Expected: 02/18/2022, Expires: 04/20/2022 [facility] Work Phone: Comment on above: Expected: 02/18/2022, Expires: 2 Start: 02-07-2022 COVID-19 VACCINE (4 - Booster for Moderna series) COVID-19 VACCINE (4 - Booster for Moderna series) [facility] Start: 10-16-2021 ADVANCE DIRECTIVE DISCUSSION ADVANCE DIRECTIVE DISCUSSION [facility] Start: 01-18-2020 3 comp foot exam completed DIABETIC FOOT EXAM [facility] Start: 12-05-2019 Glaucoma screening Dilated Retinal Exam [facility] Start: 12-05-2019 Hepatitis C antibody, confirmatory test DILATED RETINAL EXAM [facility] Start: 2018 RSV Vaccine (1 - 1-dose 75+ series) RSV Vaccine (1 - 1-dose 75+ series) [facility] Start: 2003 Hepatitis B Vaccine (1 of 3 - Risk 3-dose series) Hepatitis B Vaccine (1 of 3 - Risk 3-dose series) [facility] Start: 1993 SHINGRIX VACCINE (1 of 2) SHINGRIX VACCINE (1 of 2) [facility] Start: 1961 BP Controlled (<130/80) BP Controlled (<130/80) [facility] Start: 1961 HEPATITIS C SCREENING HEPATITIS C SCREENING St. [facility] Start: 1951 PNEUMOCOCCAL: 65+ (1 - PCV) PNEUMOCOCCAL: 65+ (1 - PCV) [facility] End: 08-09-2025 CTA Abdominal vessels and Pelvis vessels W contrast IV CTA ABD/PEL W IVCON Radiology Routine Nonrheumatic aortic valve stenosis Encounter for preprocedural cardiovascular examination 1 Occurrences starting 07/10/2024 until 08/09/2025 [facility] Work Phone: Comment on above: 1 Occurrences starting 07/10/2024 until 08/09/2025 End: 07-23-2024 CTA Abdominal vessels and Pelvis vessels W contrast IV [facility] Work Phone: Comment on above: 1 Occurrences starting 07/23/2024 until 07/23/2024 End: 08-09-2025 CTA Chest vessels WO and W contrast IV CTA CHEST (GATED) WO/W IVCON Radiology Routine Nonrheumatic aortic valve stenosis Encounter for preprocedural cardiovascular examination 1 Occurrences starting 07/10/2024 until 08/09/2025 [facility] Comment on above: 1 Occurrences starting 07/10/2024 until 08/09/2025 End: 07-23-2024 CTA Chest vessels WO and W contrast IV [facility] Comment on above: 1 Occurrences starting 07/23/2024 until 07/23/2024 ECG COMPLETE ECG COMPLETE ECG Routine Syncope, unspecified syncope type Aortic valve disorder Paroxysmal atrial fibrillation (HCC) Ordered: 03/21/2024 [facility] Work Phone: Comment on above: Ordered: 03/21/2024 End: 07-10-2025 EXTENDED WEAR ETHNOARCHAEOLOGIST PATCH EXTENDED WEAR ETHNOARCHAEOLOGIST PATCH ECG Routine Nonrheumatic aortic valve stenosis 1 Occurrences starting 07/10/2024 until 07/10/2025 [facility] Comment on above: 1 Occurrences starting 07/10/2024 until 07/10/2025 End: 07-10-2024 EXTENDED WEAR ETHNOARCHAEOLOGIST PATCH EXTENDED WEAR ETHNOARCHAEOLOGIST PATCH ECG Routine Nonrheumatic aortic valve stenosis 1 Occurrences starting 07/10/2024 until 07/10/2024 [facility] Work Phone: Comment on above: 1 Occurrences starting 07/10/2024 until 07/10/2024 Hemoglobin.gastrojerilyn estin al.lower [Presence] in Stool by Immunoassay IMMUNOCHEMICAL FECAL OCCULT BLOOD TEST Lab Routine CKD (chronic kidney disease) stage 4, 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/min (HCC) Anemia, unspecified type Ordered: 04/05/2024 [facility] Work Phone: Comment on above: Ordered: 04/05/2024 Hemoglobin.gastroint estin al.lower [Presence] in Stool by Immunoassay IMMUNOCHEMICAL FECAL OCCULT BLOOD TEST Lab Routine Screen for colon cancer Ordered: 2024 [facility] Work Phone: Comment on above: Ordered: 2024 OUTSIDE VENDOR CARDI AC OUTPATIENT EXTENDED RHYTHM RECORDING (WITHOUT TELEMETRY) OUTSIDE VENDOR CARDIAC OUTPATIENT EXTENDED RHYTHM RECORDING (WITHOUT TELEMETRY) Holter Routine Syncope, unspecified syncope type Ordered: 02/13/2023 [facility] Work Phone: Comment on above: Ordered: 02/13/2023 Removal impacted cer umen irrigation/lvg unilat AMBULATORY EAR LAVAGE/IRRIGATION Procedures Routine Bilateral impacted cerumen Ordered: 01/21/2025 [facility] Comment on above: Ordered: 01/21/2025 End: 03-26-2025 US Carotid arteries - bilateral US CAROTID ARTERIES GRAY VAS LAB Vascular Lab Routine History of carotid endarterectomy 1 Occurrences starting 03/26/2024 until 03/26/2025 [facility] Work Phone: Comment on above: 1 Occurrences starting 03/26/2024 until 03/26/2025 End: 03-16-2023 US CAROTID ARTERIES GRAY VAS LAB US CAROTID ARTERIES GRAY VAS LAB Vascular Lab Routine Bilateral carotid artery stenosis 1 Occurrences starting 03/18/2022 until 03/16/2023 [facility] Work Phone: Comment on above: 1 Occurrences starting 03/18/2022 until 03/16/2023 End: 10-04-2023 US CAROTID ARTERIES GRAY VAS LAB US CAROTID ARTERIES GRAY VAS LAB Vascular Lab Routine Bilateral carotid artery stenosis 1 Occurrences starting 10/04/2022 until 10/04/2023 [facility] Work Phone: Comment on above: 1 Occurrences starting 10/04/2022 until 10/04/2023 End: 04-25-2025 US Kidney - bilateral and Urinary bladder US KIDNEY/BLADDER Radiology Routine Renal insufficiency 1 Occurrences starting 03/26/2024 until 04/25/2025 [facility] Comment on above: 1 Occurrences starting 03/26/2024 until 04/25/2025 [facility] Immunizations Immunization Date Immunization Notes Care Provider Pete carter 07-12-2024 COVID-19 vaccine, ag e 12+ yr (PFIZER-BIONTECH COMIRNATY) Guanakito Reno MD Work Phone: [facility] 07-12-2024 influenza, high dose seasonal, preservative-free Guanakito Reno MD Work Phone: [facility] 07-12-2024 influenza virus vacc ine, unspecified formulation Guanakito Reno MD Work Phone: [facility] 08-14-2023 COVID-19 vaccine, ag e 12+ yr, season (PFIZER-BIONTECH) Guanakito Reno MD Work Phone: [facility] 08-14-2023 influenza (HD-IIV4) vaccine, age 65+ yr, high dose, quadrivalent, PF (FLUZONE HIGH-DOSE) Guanakito Reno MD Work Phone: [facility] 08-14-2023 influenza virus vacc ine, unspecified formulation Ruthie Cuevas [facility] 02-06-2023 COVID-19 vaccine, ag e 12+ yr, bivalent (PFIZER-BIONTECH) Guanakito Reno MD Work Phone: [facility] 12-13-2021 COVID-19 vaccine, ag e 12+ yr (PFIZER-BIONTECH - YANES TOP) Guanakito Reno MD Work Phone: [facility] 04-22-2021 tetanus and diphther ia toxoids, adsorbed, preservative free, for adult use (5 Lf of tetanus toxoid and 2 Lf of diphtheria toxoid) Guanakito Reno MD Work Phone: [facility] 02-16-2021 COVID-19 vaccine, fu ll dose (MODERNA) Guanakito Reno MD Work Phone: [facility] Work Phone: 01-19-2021 COVID-19 vaccine, fu ll dose (MODERNA) Guanakito Reno MD Work Phone: [facility] Work Phone: 07-18-2019 influenza, high dose seasonal, preservative-free Guanakito Reno MD Work Phone: [facility] Work Phone: 07-18-2019 influenza virus vacc ine, unspecified formulation Lizette Cardenas RN [facility] 09-15-2017 influenza, high dose seasonal, preservative-free Guanakito Reno MD Work Phone: [facility] 08-11-2016 influenza, high dose seasonal, preservative-free Guanakito Reno MD Work Phone: [facility] 08-11-2016 pneumococcal polysaccharide vaccine, 23 valent Guanakito Reno MD Work Phone: [facility] 08-10-2015 influenza, high dose seasonal, preservative-free Guanakito Reno MD Work Phone: [facility] 04-09-2015 pneumococcal conjuga te vaccine, 13 valent Guanakito Reno MD Work Phone: [facility] 10-21-2013 influenza virus vacc ine, unspecified formulation Guanakito Reno MD Work Phone: [facility] 08-08-2012 influenza virus vacc ine, unspecified formulation Guanakito Reno MD Work Phone: [facility] Work Phone: 10-12-2005 pneumococcal polysaccharide vaccine, 23 valent Guanakito Reno MD Work Phone: [facility] Work Phone: 12-02-2003 diphtheria and tetan us toxoids, adsorbed for pediatric use Guanakito Reno MD Work Phone: [facility] Work Phone: Payers Date Payer Category Payer Self-pay 2025 Unknown [id number] 2019 Medicare UHC AARP MEDICAR E [facility] AARP MEDICARE HMO [id number] 2019-Present [phone] [address] [address] [place] [address] [facility] [id number] 2019 Medicare UHC AARP MEDICAR E UHC AARP MEDICARE HMO [id number] 2019-Present [phone] [address] [address] [place] [address] HMO [id number] 2019 Medicare (Managed Care) UHC AARP MEDICARE HMO [id number] 2019 Medicare [id number] 2009 Unknown [id number] 2008 Medicare [id number] Medicare [id number] Unknown [id number] [id number]. 462 Unknown [id number] [id number]. 462 Unknown [id number] 2.16.840.1.038653.3.579.2. 462 Unknown [id number] 2.16.840.1.222578.3.579.2. 462 Unknown [id number] 2.16.840.1.032746.3.579.2. 462 Unknown [id number] 2.16.840.1.731216.3.579.2. 462 Unknown [id number] 2.16.840.1.781111.3.579.2. 462 Unknown [id number] 2.16.840.1.390437.3.579.2. 462 Unknown [id number] 2.16.840.1.637466.3.579.2. 462 Unknown [id number] 2.16.840.1.493744.3.579.2. 462 Unknown [id number] 2.16.840.1.376851.3.579.2. 462 Unknown [id number] 2.16.840.1.758563.3.579.2. 462 Unknown [id number] 2.16.840.1.570706.3.579.2. 462 Unknown [id number] 2.16.840.1.929382.3.579.2. 462 Unknown [id number] 2.16.840.1.880280.3.579.2. 462 Unknown [id number] 2.16.840.1.224332.3.579.2. 462 Unknown [id number] 2.16.840.1.419553.3.579.2. 462 Unknown [id number] 2.16.840.1.427739.3.579.2. 462 Unknown [id number] 2.16.840.1.299997.3.579.2. 462 Unknown [id number] 2.16840.1.333317.3.579.2. 462 Unknown [id number] 2.16.840.1.589112.3.579.2. 462 Unknown [id number] 2.16.840.1.212276.3.579.2. 462 Unknown [id number] 2.16840.1.609137.3.579.2. 462 Unknown [id number] 2.16840.1.164170.3.579.2. 462 Social History Date Type Detail Facility Start: 08-10-2015 End: 03-06-2025 Tobacco smoking status NHIS Ex-smoker [facility] Start: 12-05-1975 End: 12-05-1985 History of tobacco use Current smoker [facility] Start: 12-05-1975 End: 12-05-1985 History of tobacco use Cigarette Smoker [facility] Start: 01-19-2022 End: 03-06-2025 Alcohol intake Current non-drinker of alcohol (finding) [facility] Start: 10-26-2020 History SDOH Alcohol Frequency 1 [facility] Start: 10-26-2020 History SDOH Alcohol Std Drinks 98 [facility] Start: 05-15-2019 History SDOH Alcohol Comment none now; social in past [facility] Start: 10-26-2020 History SDOH Social Connections Get Together 2 [facility] Start: 10-26-2020 History SDOH Social Connections Living 4 [facility] Start: 10-26-2020 History SDOH Physica l Activity DPW 0 [facility] Start: 10-26-2020 History SDOH Financial 5 [facility] Start: 10-26-[address] [facility] Start: 1945 Sex Assigned At Not on file C [facility] Start: 01-09-2022 End: 08-15-2022 Exposure to SARS-CoV-2 (event) Not sure [facility] Start: 03-22-2022 End: 04-01-2022 Exposure to SARS-CoV-2 (event) Unable to assess [facility] Work Phone: Start: 08-10-2015 End: 04-11-2023 Cigarettes smoked current (pack per day) - Reported 2 [facility] Start: 08-10-2015 End: 06-05-2024 Tobacco use and exposure Smokeless tobacco non-user [facility] Start: 10-26-2020 End: 04-11-2023 Social connection and isolation panel [facility] Do you belong to any clubs or organizations such as quaker groups, unions, fraternal or athletic groups, or school groups? No [facility] Are you now , , , , never or living with a partner? [facility] How often to you hav e a drink containing alcohol? Never [facility] How many standard dr inks containing alcohol do you have on a typical day? Patient refused [facility] Do you feel stress - tense, restless, nervous, or anxious, or unable to sleep at night because your mind is troubled all the time - these days [OSQ] Only a little [facility] (I/We) worried whejoe er (my/our) food would run out before (I/we) got money to buy more. Never true [facility] Start: 1945 Sex Assigned At Male [facility] Medical Equipment Procedure Code Equipment Code Equipment Origin al Text Equipment Identifier Dates [id number], [id number] Start: 11-11-2011 Comment on above: Test blood sugar(s) one times daily. Dx: 250.00. Insulin: No Test blood sugar(s) one time daily. Dx: 250.00. Insulin: No Goals Date Patient Goal Desired Activity /State Personal health goal Functional Status Date Assessment Result Facility 04-09-2015 Are you deaf, or do you have serious difficulty hearing No 04/09/2015 11:20 AM JORGET Stephany Graves MA No [facility] 04-09-2015 Are you blind, or do you have serious difficulty seeing, even when wearing glasses No 04/09/2015 11:20 AM JORGET Stephany Graves MA No [facility] 04-09-2015 Do you have serious difficulty walking or climbing stairs No 04/09/2015 11:20 AM JORGET Stephany Graves MA No [facility] 04-09-2015 Do you have difficul ty dressing or bathing No 04/09/2015 11:20 AM JORGET Stephany Graves MA [facility] 04-09-2015 Because of a physica l, mental, or emotional condition, do you have difficulty doing errands alone such as visiting a physician's office or shopping No 04/09/2015 11:20 AM JORGET Stephany Graves MA [facility] Mental Status Date Assessment Result Facility 04-09-2015 Because of a physica l, mental, or emotional condition, do you have serious difficulty concentrating, remembering, or making decisions No 04/09/2015 11:20 AM EDT Stephany Graves MA No [facility] Clinical Notes 03-29-2011 to 04-15-2025 Telephone Encounter - Twin Cole RP - 04/15/2025 9:09 AM EDTTelephone Encounter - Twin Cole RP - 04/15/2025 9:09 AM EDTTelephone Encounter - Leidy Malone RN - 04/14/2025 3:18 PM EDT Note Date & Type Note Facility 04-15-[address] [facility] Ambulatory Pharmacy Anticoagulation Clinic Anticoagulation Episode Summary Anticoagulation Care Providers Provider Role Specialty Phone number Guanakito Reno MD [facility] Medicine [phone] Cal Mitchell is a 79 year old [...] Pharmacy Anticoagulation Clinic Pharmacy [facility] Pager: [phone]. [facility] 04-15-2025 Miscellaneous Notes Formattin g of this note is different from the original. [facility]ulatory [facility] Anticoagulation Clinic Anticoagulation Episode Summary Anticoagulation Care Providers Provider Role Specialty Phone number Guanakito Reno MD [facility] [phone] Cal Mitchell is a 79 year old [...] Pharmacy Anticoagulation Clinic Pharmacy Anticoagulation Clinic Pager: [phone]. documented in this encounter [facility] 04-14-2025 Telephone encount er Note Gustavo calls back and notified of provider recommendation below. Voices understanding. Leidy Malone RN [facility] 04-14-2025 Miscellaneous Notes Formattin g of [...] Please advise documented in this encounter [facility] 04-14-2025 Telephone encount er Note Phoned Gustavo left message to return call and ask to speak to a nurse. [facility] 04-14-2025 Telephone encount er Note yes [facility] 04-14-2025 Telephone encount er Note Patient son in law Gustavo calling he has been giving the patient Tylenol 500 mg two tablets twice daily since his fracture right shoulder at almost the end of February. He is asking if it is alright that they are still giving it to him? Please advise [facility] 04-08-2025 Telephone encount er Note The following approved medication requests have been transmitted electronically. Requested Prescriptions Pending Prescriptions Disp Refills warfarin (COUMADIN) 5 mg tablet 90 tablet 3 Sig: Take 1 tablet by mouth once daily. warfarin (COUMADIN) 5 mg tablet 30 tablet 0 Sig: Take 1 tablet by mouth once daily. Carolina Landeros APRN.CNP [facility] 04-08-2025 Miscellaneous Notes Formattin g of [...] 2:33 PM documented in this encounter [facility] 04-08-2025 Telephone encount er Note Prescription [...] LPN April 08, 2025 2:[address] [facility] 04-08-2025 Miscellaneous Notes Formattin g of [...] 2:38 PM documented in this encounter [facility] 04-08-2025 Telephone encount er Note Prescription [...] LPN April 08, 2025 2:[address] [facility] 04-08-2025 Evaluation note Diagnosis Hypertensive kidney disease with stage 3 chronic kidney disease, unspecified whether stage 3a or 3b CKD (HCC) Type 2 diabetes mellitus with stage 3 chronic kidney disease, without long-term current use of insulin, unspecified whether stage 3a or 3b CKD (HCC) Chronic renal disease, stage IV (HCC) Chronic kidney disease, Stage IV (severe) documented in this encounter [facility]06-13-2025 Telephone encounter Note* Telephone Encounter - Rodriges, M Noel, RN - 03/28/2025 1:04 PM EDT Faxed recent ov notes to [facility] per daughter, January request. . January reports she talked to [facility] about patient going to live there and [facility] instructed her to have pcp office send an H & P to them for review. [facility]06-13-2025 Miscellaneous Notes* Telephone Encounter - Niels Rodriges RN - 03/28/2025 1:04 PM EDT Faxed recent ov notes to [facility] per daughter, January request. . January reports she talked to [facility] about patient going to live there and [facility] instructed her to have pcp office send an H & P to them for review. [facility] Telephone encounter Note * Telephone Encounter - Alejandro Molina RP - 03/24/2025 10:[address] [facility] Ambulatory Pharmacy Anticoagulation Clinic Anticoagulation Episode Summary Anticoagulation Care Providers Provider Role Specialty Phone number Guanakito Reno MD [facility] Family Medicine [phone] Cal Mitchell is a 79 year old [...] instructed to call [facility] at [phone] with any questionsor concerns. Alejandro Molina [facility] Clinical Pharmacist, Pharmacy Anticoagulation Clinic Pharmacy Anticoagulation Clinic Pager: [phone] [facility]06-09-2025 Miscellaneous Notes* Telephone Encounter - Alejandro Molina RPh - 03/24/2025 10:[address] [facility] Ambulatory Pharmacy Anticoagulation Clinic Anticoagulation Episode Summary Anticoagulation Care Providers Provider Role Specialty Phone number Guanakito Reno MD [facility] Family Medicine [phone] Cal Micthell is a 79 year old year old [...] instructed to call [facility] at [phone] with any questionsor concerns. Alejandro Molina RPh Clinical Pharmacist, Pharmacy Anticoagulation Clinic Pharmacy Anticoagulation Clinic Pager: [phone] documented in this encounterSt. [facility] Evaluation note* Diagnosis Onset Date Resolution Status Admit Date Closed fracture of right pro ximal humerus acute March 07, 2025 1 2:49pm [facility] Work Phone: 1(103) 135-157405-23-2025 Evaluation note* Diagnosis Onset Date Resolution Status Admit Date Closed fracture of right proximal humerus acute March 07, 2025 12:49pm Closed fracture of right proximal humerus acute May 02, 2025 10:11am [facility] Work Phone: [phone] NoteHNO ID: [id number] Author: CAROLINA LANDEROS APRN.ELECTRICIAN SHIP Service: ? Author Type: Nurse Practitioner Type: [...] and 9-10/10 with movement. - Currently taking Mayking for pain management. - Denies pain elsewhere [...] 250.00. Insulin: No Lancets (ONE TOUCH DELICA) [facility] lancets Test blood sugar(s) one time daily. [...] in a sl (more content not included)... [facility]05-08-2025 Telephone encounter Note* Telephone Encounter - Jimmy Carrizales, [facility] - 02/20/2025 8:[address] 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 [facility]05[facility] Miscellaneous Notes* Telephone Encounter - Jimmy Carrizales, [facility] - 02/20/2025 8:[address] [facility] Ambulatory Pharmacy Anticoagulation Clinic Anticoagulation Episode Summary Anticoagulation Care Providers Provider Role Specialty Phone number Guanakito Reno MD [facility] [phone] Cal Mitchell is a 79 year old [...] ALLERGIES No Known Allergies Indication for Warfarin: correction (current) use of anticoagulants Paroxysmal atrial fibrillation [...] Pharmacy Anticoagulation Clinic Pharmacy Anticoagulation Clinic Pager: [phone]. documented in this encounterSt. [facility] Telephone encounter Note * Telephone Encounter - Kamran Ayon RPh - 01/31/2025 12:[address] [facility] Ambulatory Pharmacy Anticoagulation Clinic Anticoagulation Episode Summary Anticoagulation Care Providers Provider Role Specialty Phone number Guanakito Reno MD [facility] [phone] Cal Mitchell is a 79 year old [...] ALLERGIES No Known Allergies Indication for Warfarin: correction (current) use of anticoagulants Paroxysmal atrial fibrillation [...] Pharmacy Anticoagulation Clinic Pharmacy Anticoagulation Clinic Pager: [phone]. [facility]04-18-2025 Miscellaneous Notes* Telephone Encounter - Kamran Ayon RPh - 01/31/2025 12:[address] 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 [place] [address]-[place]-2025 Progress note* Result Encounter Note - Carolina [...] magnesium, and B12 are all normal. [facility]04-10-2025 Miscellaneous Notes* Result Encounter Note - [...] are all normal. documented in this encounterSt. [facility]04-[facility]-2025 NoteHNO ID: [id number] Author: GEOVANNA HINDS MA Service: ? Author Type: Branch Credit Counselor Type: Progress Notes Filed: 01/21/2025 17:08 Note [...] Geovanna Hinds MA January 21, 2025 5:08 [facility]04-08-2025 History of Present illness Narrative* [...] 21, 2025 5:08 PM * Carolina Landeros APRN.ELECTRICIAN [employer] - 01/21/2025 3:43 PM EDT This is [...] taking lisinopril Monitors bp at home: Yes. [place] checks it, ok there Denies side effects: [...] No oropharyngeal exudate. Eyes: Comments: Conjunctiva gray. 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 [facility]04-[facility]-20[facility] Note* Addendum Note - Carolina Landeros APRN.CNP - 01/21/2025 4:54 PM EDTAddended by: CAROLINA LANDEROS on: 01/21/2025 04:54 PM Modules accepted: Orders [facility]04-08-2025 Miscellaneous Notes* Addendum Note - Carolina Landeros APRN.CNP - 01/21/2025 4:54 PM EDTAddended by: CAROLINA LANDEROS on: 01/21/2025 04:54 PM Modules accepted: Orders * Addendum Note - Geovanna Hinds MA - 01/21/2025 4:33 PM EDTAddended by: GEOVANNA HINDS on: 01/21/2025 04:33 PM Modules accepted: Orders documented in this encounterSt. [facility]04-[facility]-20[facility] Note* Addendum Note - Geovanna Hinds MA - 01/21/2025 4:33 PM EDTAddended by: GEOVANNA HINDS on: 01/21/2025 04:33 PM Modules accepted: Orders [facility]04-08-2025 Instructions* Patient Instructions* Carolina Landeros APRN.CNP [...] in 6 months documented in this encounterSt. [facility]04-[facility]-2025 NoteHNO ID: [id number] Author: CAROLINA LANDEROS APRN.[employer] Service: ? Author Type: Nurse Practitioner Type: [...] taking lisinopril Monitors bp at home: Yes. [place] checks it, ok there Denies side effects: [...] CAROTID VERTB SUBCLAV NECK INC 7-3-14 RIGHT ALLERGIES Patient has no known allergies. [...] 250.00. Insulin: No Lancets (ONE TOUCH DELICA) [facility] lancets Test blood sugar(s) one time daily. [...] Drug use: No EXAM: (more content not included)...[facility]03-26-2025 Miscellaneous Notes* Telephone Encounter - [...] 1 tablet by mouth once daily. Josselyn aBrrow LPN January 08, 2025 2:53 PM documented in this encounterSt. [facility] Telephone encounter Note * Telephone Encounter [...] LPN January 08, 2025 2:[address] [facility]03-26-2025 Telephone encounter Note* Telephone Encounter - Ruthie Cuevas RP - 01/08/2025 8:[address] 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 [facility]03-26-2025 Miscellaneous Notes* Telephone Encounter - Ruthie Cuevas RPh - 01/08/2025 8:[address] [facility] Ambulatory Pharmacy Anticoagulation Clinic Anticoagulation Episode Summary Anticoagulation Care Providers Provider Role Specialty Phone number Guanakito Reno MD [facility] Family Medicine [phone] Cal Mitchell is a 79 year old [...] ALLERGIES No Known Allergies Indication for Warfarin: correction (current) use of anticoagulants Paroxysmal atrial fibrillation [...] Pharmacy Anticoagulation Clinic Pharmacy Anticoagulation Clinic Pager: [phone]. documented in this encounterSt. [facility]03-26-2025 Evaluation note* Diagnosis Hypertensive kidney disease with stage 3 chronic kidney disease, unspecified whether stage 3a or 3b CKD (HCC) documented in this encounter [facility]03-17-2025 Telephone encounter Note* Telephone Encounter - Octavio (GaikaiRuben Granados - 12/30/2024 9:15 AM EDT [facility] called regarding INR result for patient. Result has been addressed below, no further action needed. Ruben Cunningham Drawer In Hand (brim plater) Pharmacy Anticoagulation Clinic [facility]03-17-2025 Miscellaneous Notes* Telephone Encounter - Octavio JansenGaikaiRuben Granados - 12/30/2024 9:15 AM EDT [facility] called regarding INR result for patient. Result has been addressed below, no further action needed. Ruben Cunningham Drawer In Hand (brim plater) Pharmacy Anticoagulation Clinic * Telephone Encounter - Twin Cole RPh - 12/30/2024 9:[address] [facility] Ambulatory Pharmacy Anticoagulation Clinic Anticoagulation Episode Summary Anticoagulation Care Providers Provider Role Specialty Phone number Guanakito Reno MD [facility] [phone] Cal Mitchell is a 79 year old [...] Pharmacy Anticoagulation Clinic Pharmacy Anticoagulation Clinic Pager: [phone]. documented in this encounterSt. [facility]03-17-2025 Telephone encounter Note * Telephone Encounter - Twin Cole RPh - 12/30/2024 9:[address] [facility] Ambulatory Pharmacy Anticoagulation Clinic Anticoagulation Episode Summary Anticoagulation Care Providers Provider Role Specialty Phone number Guanakito Reno MD [facility] [phone] Cal Mitchell is a 79 year old [...] Pharmacy Anticoagulation Clinic Pharmacy Anticoagulation Clinic Pager: [phone]. [facility]02-26-2025 Telephone encounter Note* Telephone Encounter - Jimmy Carrizales, [facility] - 12/11/2024 9:[address] 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 [facility]02-26-2025 Miscellaneous Notes* Telephone Encounter - Jimmy Carrizales RPh - 12/11/2024 9:[address] 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 documented in this encounterSt. [facility]02-11-2025 Telephone encounter Note * Telephone Encounter - Twin Cole RPh - 11/26/2024 5:[address] [facility] Ambulatory Pharmacy Anticoagulation Clinic Anticoagulation Episode Summary Anticoagulation Care Providers Provider Role Specialty Phone number Guanakito Reno MD [facility] Medicine [phone] Cal Mitchell is a 79 year old [...] Pharmacy Anticoagulation Clinic Pharmacy Anticoagulation Clinic Pager: [phone]. [facility]02-11-2025 Miscellaneous Notes* Telephone Encounter - Twin Cole RPh - 11/26/2024 5:[address] [facility] Ambulatory Pharmacy Anticoagulation Clinic Anticoagulation Episode Summary Anticoagulation Care Providers Provider Role Specialty Phone number Guanakito Reno MD [facility] Medicine [phone] Cal Mitchell is a 79 year old [...] Pharmacy Anticoagulation Clinic Pharmacy Anticoagulation Clinic Pager: [phone]. documented in this encounterSt. [facility]01-13-2025 Telephone encounter Note * Telephone Encounter - Alejandro Molina RPh - 10/28/2024 5:[address] [facility] Ambulatory Pharmacy Anticoagulation Clinic Anticoagulation Episode Summary Anticoagulation Care Providers Provider Role Specialty Phone number Guanakito Reno MD [facility] Medicine [phone] Cal Mitchell is a 79 year old [...] instructed to call Pharmaceutical [facility]tico[facility] at [phone] with any questionsor concerns. Alejandro Molina RPh Clinical Pharmacist, Pharmacy Anticoagulation Clinic Pharmacy Anticoagulation Clinic Pager: [phone] [facility]01-13-2025 Miscellaneous Notes* Telephone Encounter - Alejandro Molina RPh - 10/28/2024 5:[address] [facility] Ambulatory Pharmacy Anticoagulation Clinic Anticoagulation Episode Summary Anticoagulation Care Providers Provider Role Specialty Phone number Guanakito Reno MD [facility] [phone] Cal Mitchell is a 79 year old [...] instructed to call Pharmaceutical Anticoagulation [facility] at [phone] with any questionsor concerns. Alejandro Molina RPh Clinical Pharmacist, Pharmacy Anticoagulation Clinic Pharmacy Anticoagulation Clinic Pager: [phone] documented in this encounterSt. [facility]01-06-2025 Telephone encounter Note * Telephone Encounter - Ashley De Dios RN - 10/21/2024 2:58 PM EST Pt ALEC Chen called and is notified of providers message. He voices understanding. Ashley De Dios RN [facility]01-06-2025 Miscellaneous Notes* Telephone Encounter - Ashley [...] call and advise. documented in this encounterSt. John Of [facility]01-06-2025 Telephone encounter Note * Telephone Encounter - Guanakito Reno MD - 10/21/2024 2:[address] [facility]01-06-2025 Telephone encounter Note* Telephone Encounter - [...] the Pt. Ashley De Dios RN [facility]01-06-2025 Telephone encounter Note* Telephone Encounter - Guanakito Reno MD - 10/21/2024 1:55 PM EST Can try mucinex otc. Call if symptoms worsen at all or if not better in one to two weeks [facility]01-06-2025 Telephone encounter Note* Telephone Encounter - [...] him for Covid. Please call and advise. [facility]12-17-2024 Telephone encounter Note* Telephone Encounter - Twin Cole [facility] - 10/01/2024 9:[address] [facility] Ambulatory Pharmacy Anticoagulation Clinic Anticoagulation Episode Summary Anticoagulation Care Providers Provider Role Specialty Phone number Guanakito Reno MD [facility] Medicine [phone] Cal Mitchell is a 79 year old [...] Pharmacy Anticoagulation Clinic Pharmacy Anticoagulation Clinic Pager: [phone]. [facility]12-17-2024 Miscellaneous Notes* Telephone Encounter - Twin Cole RPh - 10/01/2024 9:[address] [facility] Ambulatory Pharmacy Anticoagulation Clinic Anticoagulation Episode Summary Anticoagulation Care Providers Provider Role Specialty Phone number Guanakiot Reno MD [facility] [phone] Cal Mitchell is a 79 year old [...] Pharmacy Anticoagulation Clinic Pharmacy Anticoagulation Clinic Pager: [phone]. documented in this encounterSt. [facility] Of [facility]11-11-2024 Telephone encounter Note * Telephone Encounter - Alejandro Molina RPh - 08/26/2024 6:[address] [facility] Ambulatory Pharmacy Anticoagulation Clinic Anticoagulation Episode Summary Anticoagulation Care Providers Provider Role Specialty Phone number Guanakito Reno MD [facility] [phone] Cal Mitchell is a 79 year old [...] warfarin instructions: 5 mg every day Sent [employer] message Advised patient to continue current weekly dose as noted above Next INR check due on 09/09/2024 Alejandro Molina RPh Clinical Pharmacist, Pharmacy Anticoagulation Clinic Pharmacy Anticoagulation Clinic Pager: [phone]. [facility]11-11-2024 Miscellaneous Notes* Telephone Encounter - Alejandro Molina RPh - 08/26/2024 6:[address] [facility] Ambulatory Pharmacy Anticoagulation Clinic Anticoagulation Episode Summary Anticoagulation Care Providers Provider Role Specialty Phone number Guanakito Reno MD [facility] Medicine [phone] Cal Mitchell is a 79 year old [...] warfarin instructions: 5 mg every day Sent [employer] message Advised patient to continue current weekly dose as noted above Next INR check due on 09/09/2024 Alejandro Molina [facility] Clinical Pharmacist, Pharmacy Anticoagulation Clinic Pharmacy Anticoagulation Clinic Pager: [phone]. documented in this encounterSt. John Of God Hospital11-04-2024 NoteHNO ID: [id number] Author: MELANIA GALINDO RN Service: ? Author Type: Registered Nurse Type: Progress Notes Filed: 08/19/2024 12:55 Note Text: Summary: Medication Adherence Review per Request of Payor ACNiels LUIS RN Reason for review or outreach: Medication Adherence Review Details: Cholesterol FYI/REQUESTED ACTION: Summary / Findings: Atorvastatin was due for refill on/before 08.09.24. Sent [employer]S [employer] reminder 08.15.24- not read Called patient Patient identified by name and date of . Patient Attributed To: YANCIE Payer: [employer] Action Taken: Data submitted to Payer Contact made with patient: No, Left message BENJIE Schreiber [facility] History of Present illness Narrative* Melania Galindo RN - 08/19/2024 12:51 PM ESTSummary: Medication Adherence Review per Request of Payor ACNiels SMITH RN Reason for review or outreach: [...] BENJIE Schreiber RN documented in this encounterSt. John Of God Hospital11-04-2024 NotePatient Outreach (SEFERINO) CAL MITCHELL ([id number]) 1945 M Date Time Provider Department 08/19/24 [...] of . 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 [Z79.*02/04/2020 Dementia, vascular, mixed, with behavioral dist*08/26/2020 08/14/2023 Obesity, Class II, BMI 35-39.9 [E66.812] 08/15/2022 Aortic valve disorder [I35.9] 08/15/2022 Abnormal electrocardiography [R94.31] 08/14/2023 Diagnosed: 08/14/2023 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 Cannot tell this Nurse what he is taking and not takiing at this time. Carolin Cantu LPN August 06, 2024 1:[address] [facility]10-22-2024 Nurse Note* Carolin Cantu LPN - 08/06/2024 1:28 PM EDT Patient not a good historian of medications. Cannot tell this Nurse what he is taking and not takiing at this time. Carolin Cantu LPN August 06, 2024 1:29 PM documented in this encounterSt. John Of [facility]10-22-2024 History of Present illness Narrative* Laura Iraheta MD - 08/06/2024 1:25 PM EDT Images from the original note were not included. Heart , Vascular and Thoracic [place] DEPARTMENT OF VASCULAR SURGERY OUTPATIENT VISIT DATE [...] W/PATCH GRF CAROTID VERTB SUBCLAV NECK INC 314 RIGHT SOCIAL HISTORY: Social History Tobacco Use [...] TIME: 4:41 PM documented in this encounterSt. John Of [facility] Hospital10-17-2024 Telephone encounter Note * Telephone Encounter - Josselyn Mayer APRN.CNP - 08/01/2024 9:56 AM EDT I spoke with Gustavo and communicated recommendations of medical therapy. He reports patient also expressed wanting to continue without any further intervention. Patient and family agreeable to plan. Josselyn Mayer APRN.CNP [facility]10-17-2024 Miscellaneous Notes* Telephone Encounter - Josselyn [...] Gustavo calls requesting a return call at [phone]. Chely Nicolas, RN * Telephone Encounter - Josselyn Mayer APRN.CNP - 07/30/2024 10:34 AM EDT Attempted to contact patient and his family to update him on the treatment plan. Left voicemail requesting phone call back. Josselyn Mayer APRN.CNP documented in this encounterSt. John Of [facility] Hospital10-16-2024 Telephone encounter Note * Telephone Encounter - Chely Nicolas RN - 07/31/2024 3:53 PM EDT Gustavo calls requesting a return call at [phone]. Chely Nicolas RN [facility]10-15-2024 History of Present illness Narrative* Josselyn [...] Mayer APRN.CNP 07/30/2024 documented in this encounterSt. John Of [facility] Hospital10-15-2024 Telephone encounter Note * Telephone Encounter - Josselyn Mayer APRN.CNP - 07/30/2024 10:34 AM EDT Attempted to contact patient and his family to update him on the treatment plan. Left voicemail requesting phone call back. Josselyn Mayer APRN.CNP [facility]10-11-2024 Telephone encounter Note* Telephone Encounter - [...] test INR. Kamran Ayon PharmD, BCPS [facility]10-11-2024 Miscellaneous Notes* Telephone Encounter - Kmaran Ayon RP - 07/26/2024 4:22 PM EDT [...] BCPS * Telephone Encounter - Jimmy Carrizales [facility] - 07/25/2024 11:45 AM EDT Left voice message asking patient at [phone] (home) or daughter January to call the Anticoagulation Clinic at [phone] re: patient recenly off warfarin for heart cath on 07/23/24. Patient was prescribed Lovenox 100 mg sq Once daily by cardiology. Next Action for Anti coag Management: TM Remote Jimmy Carrizales PharmD., CACP documented in this encounterSt. John Of [facility] Hospital10-10-2024 Telephone encounter Note * Telephone Encounter - Jimmy Carrizales RPh - 07/25/2024 11:45 AM EDT Left voice message asking patient at [phone] (home) or daughter January to call the Anticoagulation Clinic at [phone] re: patient recenly off warfarin for heart cath on 07/23/24. Patient was prescribed Lovenox 100 mg sq Once daily by cardiology. Next Action for Anti coag Management: Remote Jimmy Carrizales PharmD., CACP [facility]10-08-2024 History of Present illness Narrative* Victoria Marks, (R) - 07/23/2024 7:30 AM EDT Radiology Service [...] PATIENT PRESENTS WITH AN IMPLANTABLE OR ATTACHED CITY PLANNING AIDE: No ALLERGIES: Reviewed and unchanged CONTRAST ALLERGY: [...] TIME: 9:13 AM documented in this encounterSt. John Of [facility] Hospital09-30-2024 Telephone encounter Note * Telephone Encounter - Josselyn Barrow LPN - 07/15/2024 3:19 PM EDT Notified Gustavo. [facility]09-30-2024 Miscellaneous Notes* Telephone Encounter - Josselyn [...] proceeding. Teresa Alexis RN documented in this encounterSt. John Of God Hospital09-30-2024 Telephone encounter Note * Telephone Encounter - Magdalena Laird LPN - 07/15/2024 3:15 PM EDT Son notified of results and provider message. Magdalena Laird LPN [facility]09-30-2024 Miscellaneous Notes* Telephone Encounter - Magdalena [...] off of meds. documented in this encounterSt. John Of God Hospital09-30-2024 Telephone encounter Note * Telephone Encounter - Guanakito Reno MD - 07/15/2024 2:40 PM EDT Agree. As long as he is aware. [facility]09-30-2024 Telephone encounter Note* Telephone Encounter - [...] like PCP recommendationbefore proceeding. Teresa Alexis RN [facility]09-30-2024 Telephone encounter Note* Telephone Encounter - Carolina Alba MA - 07/15/2024 2:14 PM EDT Message left for return call. Carolina Alba MA [facility]09-30-2024 Telephone encounter Note* Telephone Encounter - Guanakito Reno MD - 07/15/2024 1:04 PM EDT Kidney function and anemia are stable. See nephrology as we had recommended. Sugars are overall notbad. Hold on amaryl. Call sugars in two weeks to see how he does off of meds. [facility]09-30-2024 History of Present illness Narrative* Guanakito Reno MD - 07/15/2024 8:03 AM EDT Apparently second visit created in error. documented in this encounterSt. John Of God Hospital09-27-2024 Telephone encounter Note * Telephone Encounter - Guanakito Reno MD - 07/12/2024 12:49 PM EDT Noted. Thank you [facility]09-27-2024 Miscellaneous Notes* Telephone Encounter - Guanakito Reno MD - 07/12/2024 12:49 PM EDT Noted. Thank you * Telephone Encounter - Art Estes - 07/12/2024 12:34 PM EDT Attempted to find sooner apt time for patients nephrology apt, no sooner times within [facility] facilities that are faster than patients count includes the [facility] hospital apt. documented in this encounterSt. [facility] Of [facility]09-27-2024 Telephone encounter Note * Telephone Encounter - Art Estes - 07/12/2024 12:34 PM EDT Attempted to find sooner apt time for patients nephrology apt, no sooner times within [facility] facilities that are faster than patients count includes the [facility] hospital apt. [facility]09-27-2024 History of Present illness Narrative* Guanakito [...] or worsening shortness of breath. Currently wearing [employer] heart monitor. Placed yesterday. Follows with Cardiology. [...] ICD10: G30.9, F01.50, F02.80 - stable. 10. correction (current) use of anticoagulants - ICD9: V58.61, ICD10: Z79.01 Stable. Guanakito Reno MD documented in this encounterSt. John Of God Hospital09-25-2024 History of Present illness Narrative* Pam Reddy MD - 07/10/2024 3:07 PM EDT Images from the original note were not included. Pam Reddy MD Interventional Cardiology [address] [place], [place] [id number] Chief Complaint Patient presents with: Aortic Stenosis: [...] with significant dementia. Patient follow-up at the [place] office 6 months ago he was completely [...] 150 Strip 3 Lancets (ONE TOUCH DELICA) [facility] lancets Test blood sugar(s) one time daily. [...] CTA CHEST (GATED) WO/W IVCON - CARDIAC ANGLE FURNACEMAN ORDER - EXTENDED WEAR ETHNOARCHAEOLOGIST PATCH - COMPLETE BLOOD COUNT - BASIC [...] been made to correct any errors. * oJsselyn Mayer APRN.CNP - 07/10/2024 9:39 AM EDT [...] 10, 2024 TIME: 8:06 AM PAGER/CONTACT #: [phone] documented in this encounterSt. John Of God Hospital09-25-2024 Nurse Note* Brane, Judy, Beamer Operator - 07/10/2024 10:00 AM EDT Applied 14 day extended wear EKG patch. Pt verbalized understanding of monitor use / diary. [facility]09-25-[facility] Nurse Note* Judy Magana Exercise Physiologist - 07/10/2024 10:00 AM EDT Applied 14 day extended wear EKG patch. Pt verbalized understanding of monitor use / diary. documented in this encounterSt. John Of God Hospital09-25-2024 Instructions* Patient Instructions* Josseyln Mayer APRN.ELECTRICIAN SHIP - 07/10/2024 8:55 AM EDT Images from [...] process is complete. The content on the [employer] website is not intended nor recommended as a substitute for medical advice, diagnosis, or treatment. Always seek the advice of your own physician or other qualified healthcare professional regarding any medical questions or conditions.. 2016 [employer]. All rights reserved. Topic 25931 Version 5.0 documented in this encounterSt. John Of God Hospital09-25-2024 History of Present illness Narrative* Cal Mondragon MD - 07/10/2024 8:37 AM EDT PRIMARY CARE PHYSICIAN: Guanakito Reno [address] [place] [address] Subjective Chief Complaint Patient presents with: Aortic [...] 150 Strip 3 Lancets (ONE TOUCH DELICA) [facility] lancets Test blood sugar(s) one time daily. [...] also refer to vascular surgery and a instructor bus trolley and taxi for further evaluation. Family will discuss how [...] 10, 2024 TIME: 8:13 AM PAGER/CONTACT #: [phone] documented in this encounterSt. John Of God Hospital09-20-2024 Telephone encounter Note * Telephone Encounter - Annamarie Garcia RPh - 07/05/2024 9:[address] [facility] Ambulatory Pharmacy Anticoagulation Clinic Anticoagulation Episode Summary Anticoagulation Care Providers Provider Role Specialty Phone number Guanakito Reno MD [facility] [phone] Cal Mitchell is a 79 year old [...] ALLERGIES No Known Allergies Indication for Warfarin: correction (current) use of anticoagulants Paroxysmal atrial fibrillation (hcc) Anticoagulation Episode Summary Current INR goal: 2.0-3.0 Assessment: INR result of 2.2 is therapeutic Plan: Current Warfarin Dosing As of 07/05/2024 Full warfarin instructions: 5 mg every day Left voice message And sent [employer] message Advised patient to continue current weekly dose as noted above Next home INR check scheduled on 07/18/2024 Annamarie Garcia RPh Clinical Pharmacist, Pharmacy Anticoagulation Clinic Pharmacy Anticoagulation Clinic Pager: [phone]. [facility]09-20-2024 Miscellaneous Notes* Telephone Encounter - Annamarie Garcia RPh - 07/05/2024 9:[address] [facility] Ambulatory Pharmacy Anticoagulation Clinic Anticoagulation Episode Summary Anticoagulation Care Providers Provider Role Specialty Phone number Guanakito Reno MD [facility] Family Medicine [phone] Cal Mitchell is a 79 year old [...] ALLERGIES No Known Allergies Indication for Warfarin: correction (current) use of anticoagulants Paroxysmal atrial fibrillation (hcc) Anticoagulation Episode Summary Current INR goal: 2.0-3.0 Assessment: INR result of 2.2 is therapeutic Plan: Current Warfarin Dosing As of 07/05/2024 Full warfarin instructions: 5 mg every day Left voice message And sent [employer] message Advised patient to continue current weekly dose as noted above Next home INR check scheduled on 07/18/2024 Annamarie Garcia [facility] Clinical Pharmacist, Pharmacy Anticoagulation Clinic Pharmacy Anticoagulation Clinic Pager: [phone]. documented in this encounterSt. John Of [facility]09-03-2024 Telephone encounter Note * Telephone Encounter - Jimmy Carrizales RPh - 06/18/2024 8:[address] [facility] Pharmacy Anticoagulation Clinic Anticoagulation Episode Summary Anticoagulation Care Providers Provider Role Specialty Phone number Guanakito Reno MD [facility] Medicine [phone] Cal Mitchell is a 78 year old [...] ALLERGIES No Known Allergies Indication for Warfarin: correction (current) use of anticoagulants Paroxysmal atrial fibrillation [...] INR check scheduled on 07/02/2024 Jimmy Carrizales [facility] Clinical Pharmacist, Pharmacy Anticoagulation Clinic Pharmacy Anticoagulation Clinic Pager: [phone]. [facility]09-03-2024 Miscellaneous Notes* Telephone Encounter - Jimmy Carrizales RPh - 06/18/2024 8:[address] [facility] Ambulatory Pharmacy Anticoagulation Clinic Anticoagulation Episode Summary Anticoagulation Care Providers Provider Role Specialty Phone number Guanakito Reno MD [facility] [phone] Cal Mitchell is a 78 year old [...] ALLERGIES No Known Allergies Indication for Warfarin: correction (current) use of anticoagulants Paroxysmal atrial fibrillation [...] INR check scheduled on 07/02/2024 Jimmy Carrizales [facility] Clinical Pharmacist, Pharmacy Anticoagulation Clinic Pharmacy Anticoagulation Clinic Pager: [phone]. documented in this encounterSt. John [facility]08-22-2024 Instructions* Patient Instructions* Carolina Landeros APRN.CNP - 06/06/2024 12:10 PM EDT 1) Stop Actos 2) Stop melatonin 3) Try to increase protein 4) Follow up in 1 months documented in this encounterSt. John Of [facility]08-22-2024 History of Present illness Narrative* Carolina [...] Carolina Landeros APRN.CNP documented in this encounterSt. John Of [facility]08-21-2024 Telephone encounter Note * Telephone Encounter - Josselyn Barrow LPN - 06/05/2024 4:53 PM EDT Attempted to reach daughter and her is already here with patient. [facility]08-21-2024 Miscellaneous Notes* Telephone Encounter - Josselyn [...] Corrina Lennon APRN.CNP documented in this encounterSt. John Of God Hospital08-21-2024 Telephone encounter Note * Telephone Encounter [...] can get him scheduled. Corrina Lennon APRN.KOURTNEY [facility]08-21-2024 History of Present illness Narrative* Valerie Connelly APRN.KOURTNEY - 06/05/2024 4:45 PM EDT This note was created using SocialPandasriter. Subjective Cal Mitchell is a 78 year old male. 78 year old male with PMH HTN, hyperlipidemia, afib, PAD, CKD, DM presents for medical complaints. Acute onset of symptoms was over a week ago Patients daughter had sent in a [employer] message on 06/03/24. At that time she [...] history is provided by the patient. No tie tamper was used. Edema This is a new [...] 8 hours as needed. blood sugar diagnostic (Hana BiosciencesTOUCH ULTRA TEST) test strip Test blood sugar(s) one times daily. Dx: 250.00. Insulin: No Lancets (ONE TOUCH DELICA) [facility] lancets Test blood sugar(s) one time daily. [...] change medicines related to chronic conditions. Reviewed [employer] messages where patient was requested to be seen in person by PCP Appt made for AM 06/06/24 Valerie Connelly APRN.ELECTRICIAN SHIP documented in this encounterSt. John Of God Hospital08-21-2024 Telephone encounter Note * Telephone Encounter [...] Elly or son-in-law Gustavo. Thank you. [facility]08-19-2024 Telephone encounter Note* Telephone Encounter - Corrina Lennon APRN.KOURTNEY - 06/03/2024 7:42 PM EDT We should probably have him in so we can see his legs and check his blood pressure. Please help schedule. Can we also get him contact info for nephrology. If he is looking for carole, it would probably beDrTitus Khan? Corrina Lennon APRN.ELECTRICIAN SHIP [facility]08-08-2024 Telephone encounter Note* Telephone Encounter - Chely Nicolas RN - 05/23/2024 9:49 AM EDT Images from the original note were not included. Gladys Bella31 minutes ago (9:17 AM) TR Good Morning. Pt is scheduled for Valve Clinic on 07/10/24 at 8:30 [address]. [facility]08-08-2024 Miscellaneous Notes* Telephone Encounter - Chely [...] PM EDT ----- Message from Josselyn Mayer APRN.ELECTRICIAN SHIP sent at 05/20/2024 2:28 PM EDT ----- Creatinine 2.3. Per chart review he was asymptomatic but had an episode of syncope. Do you want work up first or just valve clinic? Josselyn ----- Message ----- From: Pam Reddy MD Sent: 05/18/2024 8:44 AM EDT To: Chely Nicolas RN; Josselyn Mayer APRN.ELECTRICIAN SHIP Aortic stenosis need to establish care at [...] the valve clinic kam documented in this encounterSt. John Of [facility] Hospital08-08-2024 Telephone encounter Note * Telephone Encounter - Chely Nicolas RN - 05/23/2024 8:27 AM EDT Left message on [email or web address] requesting pt return call for test results and MD recommendations. Officephone number provided. Chely Nicolas RN [facility]08-08-2024 Telephone encounter Note* Telephone Encounter - Chely Nicolas RN - 05/23/2024 8:26 AM EDT Images from the original note were not included. Pam Reddy MD You; Josselyn Mayer, ÁLVARO.CNP15 hours ago (4:42 PM) Let's see at the valve clinic kam [facility]08-06-2024 Telephone encounter Note* Telephone Encounter - Claritza Hardin - 05/21/2024 3:10 PM EDT Patient's son in law called in to confirm appointment with Dr. Reddy. Thanks Claritza Hardin [facility]08-06-2024 Miscellaneous Notes* Telephone Encounter - Claritza [...] Josselyn Mayer APRN.CNP documented in this encounterSt. John Of God Hospital08-05-2024 Telephone encounter Note * Telephone Encounter [...] establish care at the valve clinic kam [facility]08-05-2024 Telephone encounter Note* Telephone Encounter - [...] care with Nephrologists. Thank you, Josselyn Mayer APRN.ELECTRICIAN SHIP [facility] Work Phone: 1(131) 867-325708-05-2024 Telephone encounter Note* Telephone Encounter - Chely Nicolas RN - 05/20/2024 9:59 AM EDT Left message on [email or web address] requesting pt return call for test results. Office phone number provided. Chely Nicolas RN [facility]08-05-2024 Telephone encounter Note* Telephone Encounter - Chely Nicolas RN - 05/20/2024 9:58 AM EDT ----- Message from Pam Reddy MD sent at 05/18/2024 8:44 AM EDT ----- Aortic stenosis need to establish care at the valve clinic sle [facility]08-02-2024 Telephone encounter Note* Telephone Encounter - Dorothy Joshua [facility] - 05/17/2024 9:[address] [facility] Ambulatory Pharmacy Anticoagulation Clinic Anticoagulation Episode Summary Anticoagulation Care Providers Provider Role Specialty Phone number Guanakito Reno MD [facility] Family Medicine [phone] Cal Mitchell is a 78 year old [...] ALLERGIES No Known Allergies Indication for Warfarin: correction (current) use of anticoagulants Paroxysmal atrial fibrillation (hcc) Anticoagulation Episode Summary Current INR goal: 2.0-3.0 Assessment: INR result of 2.8is therapeutic Plan: Current Warfarin Dosing As of 05/17/2024 Full warfarin instructions: 5 mg every day Sent [employer] message Advised patient to continue current weekly dose as noted above Next home INR check scheduled on 05/30/2024 Dorothy Joshua RPh Clinical Pharmacist, Pharmacy Anticoagulation Clinic Pharmacy Anticoagulation Clinic Pager: [phone]. [facility]08-02-2024 Miscellaneous Notes* Telephone Encounter - Dorothy Joshua RPh - 05/17/2024 9:[address] [facility] Ambulatory Pharmacy Anticoagulation Clinic Anticoagulation Episode Summary Anticoagulation Care Providers Provider Role Specialty Phone number Guanakito Reno MD [facility] [phone] Cal Mitchell is a 78 year old [...] ALLERGIES No Known Allergies Indication for Warfarin: correction (current) use of anticoagulants Paroxysmal atrial fibrillation (hcc) Anticoagulation Episode Summary Current INR goal: 2.0-3.0 Assessment: INR result of 2.8is therapeutic Plan: Current Warfarin Dosing As of 05/17/2024 Full warfarin instructions: 5 mg every day Sent [employer] message Advised patient to continue current weekly dose as noted above Next home INR check scheduled on 05/30/2024 Dorothy Joshua RPh Clinical Pharmacist, Pharmacy Anticoagulation Clinic Pharmacy Anticoagulation Clinic Pager: [phone]. documented in this encounterSt. John Of [facility] Hospital07-22-2024 Instructions* Patient Instructions* Corrina Lennon APRN.CNP - 05/06/2024 6:38 PM EDT Continue to try to get the stool sample. Continue the same medication. Schedule with nephrology (kidney doctor). Recheck with Dr. Reno in 2 months. documented in this encounterSt. John Of God Hospital07-22-2024 History of Present illness Narrative* Corrina [...] a fall. Was outside and grabbed the [id number]-sr-jkrp and shook it for a few seconds [...] needed for worsening/no improvement. Corrina Lennon APRN.KOURTNEY documented in this encounterSt. John Of God Hospital07-18-2024 History of Present illness Narrative* Jody [...] PATIENT PRESENTS WITH AN IMPLANTABLE OR ATTACHED CITY PLANNING AIDE: No RADIOLOGY DEPARTMENT: Ultrasound PERIPHERAL IV DATA: Not applicable SIGNED BY: Jody Queen RDMS May 02, 2024 10:49 AM documented in this encounterSt. John Of God Hospital07-15-2024 Telephone encounter Note * Telephone Encounter - Stephany Graves MA - 04/29/2024 9:48 AM EDT Spoke with daughter. She stated she was suppose to call the local non ferrous material handler but didn't have the number and then forgot to call office to get it. Also she is not able to log into the [employer] account, states she forgot password. I have sent number for Dr. Khan to pt home along with [employer] number so she can get [employer] account fixed and call to set up his appt with non ferrous material handler. Pt needs refill of Lipitor sent to [facility]. Stephany Graves MA [facility]07-15-2024 Miscellaneous Notes* Telephone Encounter - Stephany Graves MA - 04/29/2024 9:48 AM EDT Spoke with daughter. She stated she was suppose to call the local non ferrous material handler but didn't have the number and then forgot to call office to get it. Also she is not able to log into the [employer] account, states she forgot password. I have sent number for Dr. Khan to pt home along with [employer] number so she can get [employer] account fixed and call to set up his appt with non ferrous material handler. Pt needs refill of Lipitor sent to [...] Was ordered previously. documented in this encounterSt. John Of [facility] Hospital07-10-2024 Telephone encounter Note * Telephone Encounter - Ruthie Cuevas RPh - 04/24/2024 9:[address] [facility] Ambulatory Pharmacy Anticoagulation Clinic Anticoagulation Episode Summary Anticoagulation Care Providers Provider Role Specialty Phone number Guanakito Reno MD [facility] Family Medicine [phone] Cal Mitchell is a 78 year old [...] ALLERGIES No Known Allergies Indication for Warfarin: correction (current) use of anticoagulants Paroxysmal atrial fibrillation (hcc) Anticoagulation Episode Summary Current INR goal: 2.0-3.0 Assessment: INR result of 2.7 is therapeutic Plan: Current Warfarin Dosing As of 04/24/2024 Full warfarin instructions: 5 mg every day Sent [employer] message Advised patient to continue current weekly dose as noted above Next home INR check scheduled on 05/07/2024 Ruthie Cuevas RPh Clinical Pharmacist, Pharmacy Anticoagulation Clinic Pharmacy Anticoagulation Clinic Pager: [phone]. [facility]07-10-2024 Miscellaneous Notes* Telephone Encounter - Ruthie Cuevas RPh - 04/24/2024 9:[address] 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 documented in this encounterSt. John Of God Hospital07-05-2024 Telephone encounter Note * Telephone Encounter - Geovanna Hinds MA - 04/19/2024 4:14 PM EDT Left message for patient to return call. Geovanna Hinds Ma [facility]07-05-2024 Telephone encounter Note* Telephone Encounter - Guanakito Reno MD - 04/19/2024 3:46 PM EDT Anemia is stable. I still need an ifobt done since he is on blood thinners to rule out gi blood loss. It may well be related to his kidneys. They are stable but worse. Did he get set up with nephrology? Was ordered previously. [facility]06-24-2024 Telephone encounter Note* Telephone Encounter - Corrina Lennon APRN.CNP - 04/08/2024 3:45 PM EDT Pt aware. Corrina Lennon APRN.ELECTRICIAN SHIP [facility]06-24-2024 Miscellaneous Notes* Telephone Encounter - Corrina [...] weeks. See nephrology documented in this encounterSt. John Of God Hospital06-24-2024 Telephone encounter Note * Telephone Encounter - Alejandro Molina RPh - 04/08/2024 3:[address] [facility] Ambulatory Pharmacy Anticoagulation Clinic Anticoagulation Episode Summary Anticoagulation Care Providers Provider Role Specialty Phone number Guanakito Reno MD [facility] Family Medicine [phone] Cal Mitchell is a 78 year old [...] Pharmacy Anticoagulation Clinic Pharmacy Anticoagulation Clinic Pager: [phone]. [facility]06-24-2024 Miscellaneous Notes* Telephone Encounter - Alejandro Molina RPh - 04/08/2024 3:[address] [facility] Ambulatory Pharmacy Anticoagulation Clinic Anticoagulation Episode Summary Anticoagulation Care Providers Provider Role Specialty Phone number Guanakito Reno MD [facility] [phone] Cal Mitchell is a 78 year old [...] Pharmacy Anticoagulation Clinic Pharmacy Anticoagulation Clinic Pager: [phone]. documented in this encounterSt. John Of [facility] Hospital06-24-2024 Instructions* Patient Instructions* Corrina Lennon APRN.CNP - 04/08/2024 3:11 PM EDT Continue the same medication. Get the repeat labs in 2 weeks. Get the echo, carotid ultrasound, kidney ultrasound as planned. Schedule w/ nephrology. Schedule back in 1 month for recheck. documented in this encounterSt. John Of God Hospital06-24-2024 History of Present illness Narrative* Corrina [...] 8 hours as needed. blood sugar diagnostic (Hana BiosciencesTOUCH ULTRA TEST) test strip Test blood sugar(s) one times daily. Dx: 250.00. Insulin: No Lancets (ONE TOUCH DELICA) [facility] lancets Test blood sugar(s) one time daily. [...] with the plan. documented in this encounterSt. John Of God Hospital06-22-2024 Telephone encounter Note * Telephone Encounter - Nablia Jimenez RPh - 04/06/2024 4:33 PM EDT [...] Diana Jimenez, SamirD, MPH Anticoagulation Clinic Pharmacist [phone] [facility]06-22-2024 Miscellaneous Notes* Telephone Encounter - Nabila [...] Diana Jimenez PharmD, MPH Anticoagulation Clinic Pharmacist [phone] * Telephone Encounter - Nabila Jimenez RPh - 04/06/2024 3:49 PM EDT Called and LM for patient and sent Kextilhart referenced in VM (though patient has not logged into Glaukos since December). Patient was asked to call/page PAC at next convenience to confirm receipt of message Will follow up on Monday and expect next INR on that date Diana Jimenez PharmD, MPH Anticoagulation Clinic Pharmacist [phone] * Telephone Encounter - Yamilka Heath RN - 04/04/2024 1:14 PM EDT Alana Perez calling in INR result today (04/04.) result has been addressed below. Apurva Heath RN Pharmacy Anticoagulation Clinic * Telephone Encounter - Jimmy Carrizales [facility] - 04/04/2024 12:[address] [facility] Ambulatory Pharmacy Anticoagulation Clinic Anticoagulation Episode Summary Anticoagulation Care Providers Provider Role Specialty Phone number Guanakito Reno MD [facility] [phone] Cal Mitchell is a 78 year old [...] ALLERGIES No Known Allergies Indication for Warfarin: correction (current) use of anticoagulants Paroxysmal atrial fibrillation [...] Pharmacy Anticoagulation Clinic Pharmacy Anticoagulation Clinic Pager: [phone]. documented in this encounterCleveland [phone] Telephone encounter Note * Telephone Encounter - Nabila Jimenez RPh - 04/06/2024 3:49 PM EDT Called and LM for patient and sent MyChart referenced in VM (though patient has not logged into MyChart since December). Patient was asked to call/page PAC at next convenience to confirm receipt of message Will follow up on Monday and expect next INR on that date Diana Jimenez, [place], MPH Anticoagulation Clinic Pharmacist [phone] [facility]06-21-2024 Telephone encounter Note* Telephone Encounter - Josselny Barrow LPN - 04/05/2024 4:25 PM EDT Has visit scheduled with Corrina on Monday will route to their pool. If he keeps that appt can you please close for us? Thank you. [facility]06-21-2024 Telephone encounter Note* Telephone Encounter - Carolina Alba MA - 04/05/2024 4:19 PM EDT No answer. Left detailed message stating we were calling in regards to results and needing to discuss a few things. Advised to return call. Carolina Alba MA [facility]06-21-[facility] Telephone encounter Note* Telephone Encounter - Jonelle Worley LPN - 04/05/2024 10:41 AM EDT Phoned patient left message to return call and ask to speak to a nurse. [facility]06-[facility] Telephone encounter Note* Telephone Encounter - Guanakito Reno MD - 04/05/2024 10:21 AM EDT Anemia is stable. May be related to his kidneys. Renal function continues to be slightly worse. Get renal us as ordered. Check ifobt. Recheck labs in two weeks. See nephrology [facility]06-20-2024 Telephone encounter Note* Telephone Encounter - Yamilka Heath RN - 04/04/2024 1:14 PM EDT Alana Perez calling in INR result today (04/04.) result has been addressed below. Apurva Heath RN Pharmacy Anticoagulation Clinic [facility]06-[facility] Telephone encounter Note* Telephone Encounter - Jimmy Carrizales [facility] - 04/04/2024 12:[address] [facility] Ambulatory Pharmacy Anticoagulation Clinic Anticoagulation Episode Summary Anticoagulation Care Providers Provider Role Specialty Phone number Guanakito Reno MD [facility] [phone] Cal Mitchell is a 78 year old [...] ALLERGIES No Known Allergies Indication for Warfarin: correction (current) use of anticoagulants Paroxysmal atrial fibrillation [...] Pharmacy Anticoagulation Clinic Pharmacy Anticoagulation Clinic Pager: [phone]. [facility]06-11-2024 Instructions* Patient Instructions* Guanakito Reno MD - 03/26/2024 5:00 PM EDT Stop lisinopril hctz Start lisinopril. Call if any shortness of breath or edema. Weigh daily. Call us if you gain more than 3-4 lbs in a 24 hour period Get carotid ultrasound Recheck labs end of this week or early next. documented in this encounterSt. John Of God Hospital06-11-2024 History of Present illness Narrative* Guanakito [...] mg daily. Needs 30 day supply to [place] while waiting for shipment from [employer]. No myalgias HTN: Continues on Zestoretic 20-12.5 [...] 8 hours as needed. blood sugar diagnostic (Tred ULTRA TEST) test strip Test blood sugar(s) one times daily. Dx: 250.00. Insulin: No Lancets (ONE TOUCH DELICA) [facility] lancets Test blood sugar(s) one time daily. [...] Advance Directive Discussion due on 10/16/2023 Covid-19 Vaccine(2022- season) due on 12/14/2023 HbA1C due on [...] ICD10: G30.9, F01.50, F02.80 - stable. 9. correction (current) use of anticoagulants - ICD9: V58.61, [...] weeks or prn. documented in this encounterSt. John Of [facility] Hospital06-10-2024 History of Present illness Narrative* Pam Reddy MD - 03/25/2024 5:19 PM EDT Images from the original note were not included. Pam Reddy MD Interventional Cardiology [address] [id number] Chief Complaint Patient presents with: Follow Up [...] 150 Strip 3 Lancets (ONE TOUCH DELICA) [facility] lancets Test blood sugar(s) one time daily. Dx: 250.00. Insulin: No1 Each 0 Current Facility-Administered Medications Medication Dose Route Frequency Provider Last Rate Last Admin perflutren lipid microspheres 1.3 mL in NaCl (PF) 0.9% 10 mL injection (DEFINITY) INTRAVENOUS DIRECTED Pam Ascencio MD sodium chloride 0.9 % (flush) 10 [...] correct any errors. documented in this encounterSt. John Of God Hospital05-24-2024 History of Present illness Narrative* Melania [...] of . Patient Attributed To: E Payer: [facility] Action Taken: Data submitted to [employer] message to patient Notation made to upcoming appointment notes requesting provider follow up Contact made with patient: No, Chart review only. Melania Galindo RN documented in this encounterSt. John Of God Hospital05-23-2024 Telephone encounter Note * Telephone Encounter - Jimmy Carrizales, [facility] - 03/07/2024 11:[address] [facility] Ambulatory Pharmacy Anticoagulation Clinic Anticoagulation Episode Summary Anticoagulation Care Providers Provider Role Specialty Phone number Guanakito Reno MD [facility] Family Medicine [phone] Cal Mitchell is a 78 year old [...] ALLERGIES No Known Allergies Indication for Warfarin: correction (current) use of anticoagulants Paroxysmal atrial fibrillation [...] INR check scheduled on 03/21/2024 Jimmy Carrizales [facility] Clinical Pharmacist, Pharmacy Anticoagulation Clinic Pharmacy Anticoagulation Clinic Pager: [phone]. [facility]05-23-[facility]24 Miscellaneous Notes* Telephone Encounter - Jimmy Carrizales RPh - 03/07/2024 11:[address] 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 documented in this encounterSt. John Of [facility] Hospital05-01-2024 Telephone encounter Note * Telephone Encounter - Ruthie Cuevas RPh - 02/14/2024 9:[address] 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 [facility]05-01-2024 Miscellaneous Notes* Telephone Encounter - Ruthie Cuevas RPh - 02/14/2024 9:[address] [facility] Ambulatory Pharmacy Anticoagulation Clinic Anticoagulation Episode Summary Anticoagulation Care Providers Provider Role Specialty Phone number Guanakito Reno MD [facility] Family Medicine [phone] Cal Mitchell is a 78 year old [...] ALLERGIES No Known Allergies Indication for Warfarin: correction (current) use of anticoagulants Paroxysmal atrial fibrillation [...] Pharmacy Anticoagulation Clinic Pharmacy Anticoagulation Clinic Pager: [phone]. documented in this encounterSt. John Of God Hospital04-03-2024 Miscellaneous Notes* Telephone Encounter - Darrell [...] you. Betzy Colvin. documented in this encounterSt. John Of God Hospital04-03-2024 Miscellaneous Notes* Telephone Encounter - Betzy Colvin - 01/17/2024 3:22 PM EDT Patient's daughter calling to request medication that is on patient list pioglitazone (ACTOS) 15 mg tablet [facility] documented in this encounterSt. John Of God [facility]04-01-2024 Miscellaneous Notes* Telephone Encounter - Alejandro Molina RP - 01/15/2024 10:[address] [facility] Clinic Anticoagulation Episode Summary Anticoagulation Care Providers Provider Role Specialty Phone number Guanakito Reno MD [facility] Family Medicine [phone] Cal Mitchell is a 78 year old [...] instructed to call [facility] at [phone] with any questionsor concerns. Alejandro Molina RPh Clinical Pharmacist, Pharmacy Anticoagulation Clinic Pharmacy Anticoagulation Clinic Pager: [phone] documented in this encounterSt. John Of God Hospital03-08-2024 Instructions* Patient Instructions* Carolina Landeros APRN.CNS - 12/22/2023 3:30 PM EST 1) Telfa dressing change daily 2) Letter for [facility] 3) Follow up in 4) Melatonin 3mg qhs and may repeat once through night if needed documented in this encounterSt. John Of God Hospital03-08-2024 History of Present illness Narrative* Carolina [...] with the plan. documented in this encounterSt. John Of God Hospital03-07-2024 Miscellaneous Notes* Telephone Encounter - Teresa [...] 7. TETANUS: 04/22/21 Protocols used: Cuts and Wwnjnbtnmfa-SNPLW-UM documented in this encounterSt. John Of God Hospital03-07-2024 Miscellaneous Notes* Telephone Encounter - Jimmy Carrizales, [facility] - 12/21/2023 9:[address] [facility] Ambulatory [facility] An[facility]agulation Clinic Anticoagulation Episode Summary Anticoagulation Care Providers Provider Role Specialty Phone number Guanakito Reno MD [facility] Family Medicine [phone] Cal Mitchell is a 78 year old [...] ALLERGIES No Known Allergies Indication for Warfarin: correction (current) use of anticoagulants Paroxysmal atrial fibrillation (hcc) Anticoagulation Episode Summary Current INR goal: 2.0-3.0 Assessment: INR result of 2.6 is therapeutic Plan: Current Warfarin Dosing As of 12/21/2023 Full warfarin instructions: 7.5 mg every Tue; 5 mg all other days Left voice message Advised patient to continue current weekly dose as noted above Next home INR check scheduled on 01/04/2024 Jimmy Carrizales [facility] Clinical Pharmacist, Pharmacy Anticoagulation Clinic Pharmacy Anticoagulation Clinic Pager: [phone]. documented in this encounterSt. John Of God Hospital02-19-2024 Miscellaneous Notes* Telephone Encounter - Daniel JansenEvent OrganizerAshley Granados - 12/04/2023 11:53 AM EST PATIENT CALL Received call from Summer with [facility] to report home meter result for patient. [facility] hasalready addressed this result (see below); nothing further needed at this time. Ashley Sanchez CPhT (Drawer In Hand) Pharmacy Anticoagulation Clinic * Telephone Encounter - Alejandro Molina RPh - 12/04/2023 9:44 AM EST [facility] Pharmacy Anticoagulation Clinic Anticoagulation Episode Summary Anticoagulation Care Providers Provider Role Specialty Phone number Guanakito Reno MD [facility] [phone] Cal Mitchell is a 78 year old [...] instructed to call [facility] at [phone] with any questionsor concerns. Alejandro Molina bobbi Clinical Pharmacist, Pharmacy Anticoagulation Clinic Pharmacy Anticoagulation Clinic Pager: [phone] documented in this encounterSt. John Of God Hospital12-06-2023 Miscellaneous Notes* Telephone Encounter - Ruthie Cuevas RPh - 09/20/2023 1:16 PM EST [facility] Pharmacy Anticoagulation Clinic Anticoagulation Episode Summary Anticoagulation Care Providers Provider Role Specialty Phone number Guanakito Reno MD [facility] [phone] Cal Mitchell is a 78 year old [...] ALLERGIES No Known Allergies Indication for Warfarin: correction (current) use of anticoagulants Paroxysmal atrial fibrillation [...] Pharmacy Anticoagulation Clinic Pharmacy Anticoagulation Clinic Pager: [phone]. documented in this encounterSt. John Of God Hospital11-21-2023 History of Present illness Narrative* Mouna Vallecillo RN - 09/05/2023 1:48 PM ESTSummary: Medication Adherence review per request of payer ACM LUIS RN Action/FYI: Medication Adherence review completed per request of payer. NO PROVIDER ACTION REQUIRED Patient identified by name and date of . Patient Attributed To: [facility] Payer: [facility] Reason for review or outreach: Medication Adherence Medication Adherence Review Details: Diabetes Summary / Findings: GLIMEPIRIDE -- Refill Due - 07/18/2023 ATORVASTATIN -- Refill Due - 08/21/2023 Pharmacy - [facility] - Action Taken: Data submitted to [employer] message to patient Contact made with patient: No, Chart review only. documented in this encounterSt. John Of God Hospital11-07-2023 Miscellaneous Notes* Telephone Encounter - Twin Cole [facility] - 08/22/2023 9:[address] [facility] Ambulatory Pharm[facility] Anticoagulation Clinic Anticoagulation Episode Summary Anticoagulation Care Providers Provider Role Specialty Phone number Guanakito Reno MD [facility] Family Medicine [phone] Cal Mitchell is a 78 year old [...] INR check scheduled on 09/05/2023 Twin Cole bobbi Clinical Pharmacist, Pharmacy Anticoagulation Clinic Pharmacy Anticoagulation Clinic Pager: [phone]. documented in this encounterSt. John Of God Hospital11-01-2023 Miscellaneous Notes* Telephone Encounter - Gerardo Fountain LPN - 08/16/2023 11:45 AM EDT January advised of same. Gerardo Fountain LPN * Telephone Encounter - Guanakito Reno MD - 08/16/2023 11:11 AM EDT One week * Telephone Encounter - Niels Rodriges RN - 08/16/2023 11:02 AM EDT Phoned and spoke with daughter, January, and given provider's message below with verbalized understanding. Daughter reports patient drinks mainly coke zero, maybe a little water, and a little green tea. Advised patient should be drinking plenty of water to help his kidneys. January states she will workon this with patient. January asking how soon do you want his labs checked? Please clarify, as message only states "one." Please phone January with reply: [phone] Copied and pasted provider's message from previous encounter: Sugars are really good. Stop his glimepiride. Call sugars in two weeks. His kidney function is worse, recheck labs in one . Make sure drinking adequate fluids. documented in this encounterSt. John Of God Hospital10-31-2023 Miscellaneous Notes* Telephone Encounter - Niels [...] drinking adequate fluids. documented in this encounterSt. John Of God Hospital10-30-2023 History of Present illness Narrative* Guanakito [...] 250.00. Insulin: No Lancets (ONE TOUCH DELICA) [facility] lancets Test blood sugar(s) one time daily. [...] YR, HIGH DOSE, QUADRIVALENT (FLUZONE HIGH-DOSE) - [employer] COVID-19 VACCINE (2022- SEASON) AGE 12+ YR [...] Guanakito Reno MD documented in this encounterSt. John Of God Hospital10-11-2023 Miscellaneous Notes* Telephone Encounter - Ruthie Cuevas [facility] - 07/26/2023 4:[address] [facility] Ambulatory Pharm[facility] Anticoagulation Clinic Anticoagulation Episode Summary Anticoagulation Care Providers Provider Role Specialty Phone number Guanakito Reno MD [facility] Medicine [phone] Cal Mitchell is a 78 year old [...] ALLERGIES No Known Allergies Indication for Warfarin: correction (current) use of anticoagulants Paroxysmal atrial fibrillation [...] Pharmacy Anticoagulation Clinic Pharmacy Anticoagulation Clinic Pager: [phone]. documented in this encounterSt. John Of God Hospital09-19-2023 Miscellaneous Notes* Telephone Encounter - Pily Cuevas - 07/04/2023 3:50 PM EDT Patient needs to have a gap supply sent to [facility] as well please send at least [...] patient. Pily Chaparro Pss documented in this encounterSt. John Of God Hospital09-12-2023 History of Present illness Narrative* Lizette Cardenas RN - 2023 3:08 PM EDT ACM LUIS RN Action/FYI: Medication Adherence review completed per request of payer. NO PROVIDER ACTION REQUIRED Please see requests in the Summary/Findings section below Patient identified by name and date of . Patient Attributed To: [facility] Payer: [facility] Reason for review or outreach: Medication Adherence Medication Adherence Review Details: Hypertension Summary / Findings: Lisinopril was due for refill on: 05/16/[facility] Action Taken: Data submitted to [employer] message to patient Other Contact made with patient: No, Chart review only. Signature: Lizette Cardenas RN documented in this encounterSt. John Of God Hospital08-07-2023 Miscellaneous Notes* Telephone Encounter - Alejandro Molina RPh - 05/22/2023 10:12 AM EDT [facility] Pharmacy Anticoagulation Clinic Anticoagulation Episode Summary Anticoagulation Care Providers Provider Role Specialty Phone number Guanakito Reno MD [facility] [phone] Cal Mitchell is a 77 year old [...] instructed to call [facility] at [phone] with any questionsor concerns. Alejandro Molina RPh Clinical Pharmacist, Pharmacy Anticoagulation Clinic Pharmacy Anticoagulation Clinic Pager: [phone] documented in this encounterSt. John Of God Hospital07-10-2023 Miscellaneous Notes* Telephone Encounter - Alejandro Molina RPh - 04/24/2023 10:04 AM EDT [facility] Pharmacy Anticoagulation Clinic Anticoagulation Episode Summary Anticoagulation Care Providers Provider Role Specialty Phone number Guanakito Reno MD [facility] [phone] Cal Mitchell is a 77 year old [...] Pharmacy Anticoagulation Clinic Pharmacy Anticoagulation Clinic Pager: [phone]. documented in this encounterSt. John Of God Hospital07-05-2023 Miscellaneous Notes* Telephone Encounter - Anna [...] Leslie Perez Pss documented in this encounterSt. John Of God Hospital06-13-2023 Miscellaneous Notes* Telephone Encounter - Twin Cole [facility] - 03/28/2023 3:[address] [facility] Ambulatory Pharmacy Anticoagulation Clinic Anticoagulation Episode Summary Anticoagulation Care Providers Provider Role Specialty Phone number Guanakito Reno MD [facility] [phone] Cal Mitchell is a 77 year old [...] Pharmacy Anticoagulation Clinic Pharmacy Anticoagulation Clinic Pager: [phone]. documented in this encounterSt. John Of God Hospital05-01-2023 History of Present illness Narrative* Dory Mayers RN - 02/13/2023 4:13 PM EDT EVENT MONITOR DISPOSABLE PATCH INSTRUCTIONS Patient Name: Cal Mitchell Clinic Number: [id number] Skin prepped and cleansed with alcohol Patch secured to prepped area Monitor Activated Serial #: [id number] Patient Instructed: Prescribed order timeframe Bathing guidelines Usage of event button and diary documentation Return of monitor at the end of prescribed order Call with problems [phone] or [phone] ext. [phone] Patient expresses a good understanding of instructions Dory Mayers RN * Pam Reddy MD - 02/13/2023 4:01 PM EDT Images from the original note were not included. Pam Reddy MD [facility] [place] [address], [place] [address] [phone] Chief Complaint Patient presents with: Established Patient [...] 150 Strip 3 Lancets (ONE TOUCH DELICA) [facility] lancets Test blood sugar(s) one time daily. [...] correct any errors. documented in this encounterSt. John Of God Hospital04-24-2023 History of Present illness Narrative* Guanakito [...] 250.00. Insulin: No Lancets (ONE TOUCH DELICA) [facility] lancets Test blood sugar(s) one time daily. [...] vaccine - ICD9: V04.89, ICD10: Z23 - [employer] COVID-19 BIVALENT VACCINE, AGE 12+ YR Guanakito Reno MD documented in this encounterSt. John Of God Hospital04-03-2023 Miscellaneous Notes* Telephone Encounter - Corrina [...] patient. Winifred Zazueta documented in this encounterSt. John Of God Hospital03-30-2023 Miscellaneous Notes* Telephone Encounter - Jimmy Carrizales, [facility] - 01/12/2023 4:[address] 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 Jimmy Carrizales [facility] Clinical Pharmacist, Pharmacy Anticoagulation Clinic Pharmacy Anticoagulation Clinic Pager: [phone]. * Telephone Encounter - Ruthie Cuevas [facility] - 01/11/2023 9:[address] [facility] Ambulatory Pharmacy Anticoagulation Clinic Anticoagulation Episode Summary Anticoagulation Care Providers Provider Role Specialty Phone number Guanakito Reno MD [facility] Family Medicine [phone] Cal Mitchell is a 77 year old [...] ALLERGIES No Known Allergies Indication for Warfarin: correction (current) use of anticoagulants Paroxysmal atrial fibrillation [...] Pharmacy Anticoagulation Clinic Pharmacy Anticoagulation Clinic Pager: [phone]. * Telephone Encounter - Alejandro Molina RPh - 01/09/2023 4:34 PM EDT Patient was due to test INR today. Will continue to monitor for results. documented in this encounterSt. John Of God Hospital03-06-2023 Miscellaneous Notes* Telephone Encounter - Alejandro Molina RPh - 12/19/2022 10:[address] [facility] Ambulatory Pharmacy Anticoagulation Clinic Anticoagulation Episode Summary Anticoagulation Care Providers Provider Role Specialty Phone number Guanakito Reno MD [facility] Family Medicine [phone] Cal Mitchell is a 77 year old [...] instructed to call [facility] at [phone] with any questionsor concerns. Alejandro Molina RPh Clinical Pharmacist, Pharmacy Anticoagulation Clinic Pharmacy Anticoagulation Clinic Pager: [phone] documented in this encounterSt. John Of God Hospital02-13-2023 Miscellaneous Notes* Telephone Encounter - Alejandro Molina RPh - 11/28/2022 10:[address] [facility] Ambulatory Pharmacy Anticoagulation Clinic Anticoagulation Episode Summary Anticoagulation Care Providers Provider Role Specialty Phone number Guanakito Reno MD [facility] [phone] Cal Mitchell is a 77 year old [...] instructed to call [facility] at [phone] with any questionsor concerns. Alejandro Molina RPh Clinical Pharmacist, Pharmacy Anticoagulation Clinic Pharmacy Anticoagulation Clinic Pager: [phone] documented in this encounterSt. John Of God Hospital02-03-2023 Miscellaneous Notes* Telephone Encounter - Kamran Ayon RPh - 11/18/2022 12:49 PM EST Patient due to test INR today. Will continue to monitor for results. Kamran Ayon RPh documented in this encounterSt. John Of God Hospital01-20-2023 Miscellaneous Notes* Telephone Encounter - Kamran Ayon RPh - 11/04/2022 8:[address] [facility] Ambulatory Pharmacy Anticoagulation Clinic Anticoagulation Episode Summary Anticoagulation Care Providers Provider Role Specialty Phone number Guanakito Reno MD [facility] Internal Medicine [phone] Cal Mitchell is a 77 year old [...] ALLERGIES No Known Allergies Indication for Warfarin: correction (current) use of anticoagulants Paroxysmal atrial fibrillation (hcc) Anticoagulation Episode Summary Current INR goal: 2.0-3.0 Assessment: INR result of 2.2 is therapeutic Plan: Current Warfarin Dosing As of 11/04/2022 Full warfarin instructions: 7.5 mg every Mon, Kaye; 5 mg all other days; Starting 11/04/2022 Sent [employer] message Advised patient to continue current weekly dose as noted above Next home INR check scheduled on 11/18/2022 Kamran Ayon RPh Clinical Pharmacist, Pharmacy Anticoagulation Clinic Pharmacy Anticoagulation Clinic Pager: [phone]. documented in this encounterSt. John Of God Hospital01-17-2023 Miscellaneous Notes* Telephone Encounter - Twin Cole RPh - 11/01/2022 10:30 AM EST Patient due to test INR today. Will continue to monitor for results. Twin Cole RPh documented in this encounterSt. John Of God Hospital01-10-2023 Miscellaneous Notes* Telephone Encounter - Twin Cole RPh - 10/25/2022 4:[address] [facility] Ambulatory [facility]acy Anticoagulation Clinic Anticoagulation Episode Summary Anticoagulation Care Providers Provider Role Specialty Phone number Guanakito Reno MD [facility] Internal Medicine [phone] Cal Mitchell is a 77 year old [...] ALLERGIES No Known Allergies Indication for Warfarin: correction (current) use of anticoagulants Paroxysmal atrial fibrillation (hcc) Anticoagulation Episode Summary Current INR goal: 2.0-3.0 Assessment: INR result of 3.4 is SUPRAtherapeutic due to: No obvious cause Patient denies any medication changes, grapefruit/cranberry ingestion, OTC/herbal/nutritional supplement use, accidental over dosage, changes in warfarin tablet color/shape/drilling manager, eating less green vegetables, recent illness/fever/nausea/vomiting/diarrhea, increased edema/SOB, or ETOH consump tion. Plan: Current Warfarin Dosing As of 10/19/2022 Full warfarin instructions: 10/25: 5 mg; Otherwise 7.5 mg every Tue, Kaye; 5 mg all other days; Starting 10/19/2022 Called and spoke to patient/caregiver spouse Advised patient to decrease dose for 1 day only then resume weekly regimen Next home INR check scheduled on 11/01/2022 Patient's caregiver verbalizes understanding of the plan. Twin Cole RPh Clinical Pharmacist, Pharmacy Anticoagulation Clinic Pharmacy Anticoagulation Clinic Pager: [phone]. * Telephone Encounter - Ruthie Cuevas RPh - 10/19/2022 4:33 PM EST Patient was due to test INR today will continue to monitor for results. Ruthie Cuevas PharmD documented in this encounterSt. John Of God Hospital12-20-2022 History of Present illness Narrative* Alondra Prescott DO - 10/04/2022 10:58 AM EST This office note has been dictated. Alondra Prescott DO * Alondra Prescott DO - 10/04/2022 12:00 AM EST NAME: CAL MITCHELL [facility] NO: [id number] DATE OF SERVICE: 10/04/2022 Subjective: Mr. Mitchell [...] concerns. Alondra Prescott D.O. KB/089 Audio #: [id number] Date Dictated: 10/04/2022 10:13:59 Date Typed: 10/05/2022 14:12:47 Date Revised: documented in this encounterSt. John Of God Hospital12-15-2022 Miscellaneous Notes* Telephone Encounter - Jimmy Carrizales, [facility] - 09/29/2022 4:[address] 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 * Telephone Encounter - Ruben Cunningham (Event Organizer) - 09/29/2022 2:23 PM EST PATIENT CALL [...] stated she lets blocked calls go to [email or web address]. She asked if she needed to be near the meterto report the results over the phone to De--advised her I am not sure. Elly can be reached at [phone] Ruben Cunningham (Event Organizer) * Telephone Encounter - Ruthie Cuevas RPh - 09/28/2022 9:49 AM EST Cal Mitchell was called and reminded to test INR today or as soon as possible. LM on home/cellwhich may be his daughter, Elly's number. Ruhtie Cuevas PharmD Pharmacy Anticoagulation Clinic * Telephone Encounter - Ruthie Cuevas RPh - 09/21/2022 9:51 AM EST Patient was due to test INR today will continue to monitor for results. Ruthie Cuevas PharmD Pharmacy Anticoagulation Clinic documented in this encounterSt. John Of God Hospital12-09-2022 Miscellaneous Notes* Telephone Encounter - Yasemin [...] advise. Yasemin Cook documented in this encounterSt. John Of God Hospital12-01-2022 Miscellaneous Notes* Telephone Encounter - Yamilka [...] patient's name. Messaged Christine and Quoc at [employer]. Apurva Heath RN Pharmacy Anticoagulation Clinic * Telephone Encounter - Jimmy Carrizales, [facility] - 09/15/2022 10:[address] [facility] Ambulatory Pharmacy Anticoagulation Clinic Anticoagulation Episode Summary Anticoagulation Care Providers Provider Role Specialty Phone number Guanakito Reno MD [facility] Family Medicine [phone] Cal Mitchell is a 77 year old [...] ALLERGIES No Known Allergies Indication for Warfarin: correction (current) use of anticoagulants Paroxysmal atrial fibrillation (hcc) Anticoagulation Episode Summary Current INR goal: 2.0-3.0 Assessment: INR result of is SUBtherapeutic due to: unknown cause - did not speak to patient Plan: Current Warfarin Dosing As of 08/22/2022 Full warfarin instructions: 09/15: 7.5 mg; Otherwise 7.5 mg every Tue; 5 mg all other days; Vzvtczhv14/7/2022 Called and spoke to patient/caregiver - per demographics we only have daughter's phone number but no identifier Advised patient to increase dose for 1 day only then resume weekly regimen Next home INR check scheduled on 09/21/2022 Jimmy Carrizales [facility] Clinical Pharmacist, Pharmacy Anticoagulation Clinic Pharmacy Anticoagulation Clinic Pager: [phone]. * Telephone Encounter - Alejandro Molina [facility] - 09/05/2022 5:31 PM EST Added to discharge list. * Telephone Encounter - Ruthie Cuevas [facility] - 08/29/2022 4:49 PM EST Cal Lua Paula was called and reminded to test INR today or as soon as possible. LM on his home/cell number. Ruthie Cuevas PharmD Pharmacy Anticoagulation Clinic * Telephone Encounter - Alejandro Molina [facility] - 08/22/2022 4:42 PM EST Patient was due to test INR today. Will continue to monitor for results. documented in this encounterSt. John Of God Hospital11-23-2022 History of Present illness Narrative* Lizette Cardenas RN - 09/07/2022 6:24 AM EST ACM LUIS RN Action/FYI: Medication Adherence review completed per request of [facility]. NO PROVIDER ACTION REQUIRED Lisinopril/Hctz 20-12.5mg Last filled: 05/21/22 Days Supply: 90 Refill Due: 08/19/22 Pharmacy: [facility] Atorvastatin 80mg Last filled: 03/20/22 Days Supply: 90 Refill Due: 06/28/22 Pharmacy: [facility] MY CHART MESSAGE SENT Patient identified by name and date of . Patient Attributed To: [facility] Payer: [facility] Reason for review or outreach: Medication Adherence Medication Adherence Review Details: Cholesterol and Hypertension Summary / Findings: As per above Action Taken: Data submitted to [employer] message to patient Contact made with patient: No, Chart review only. Signature: Lizette Cardenas RN documented in this encounterSt. John Of God Hospital10-31-2022 History of Present illness Narrative* Pam Reddy MD - 08/15/2022 3:48 PM EDT Images from the original note were not included. Pam Reddy MD Interventional Cardiology [facility] [place] [address], [place] [address] [phone] Chief Complaint Patient presents with: Consult HISTORY [...] 150 Strip 3 Lancets (ONE TOUCH DELICA) [facility] lancets Test blood sugar(s) one time daily. [...] correct any errors. documented in this encounterSt. John Of God Hospital10-17-2022 Miscellaneous Notes* Telephone Encounter - Alejandro Molina [facility] - 08/01/2022 9:[address] [facility] Ambulatory Pharmacy Anticoagulation Clinic Anticoagulation Episode Summary Anticoagulation Care Providers Provider Role Specialty Phone number Guanakito Reno MD [facility] Medicine [phone] Cal Mitchell is a 77 year old [...] instructed to call Pharm[facility]tico[facility] at [phone] with any questionsor concerns. Alejandro Molina [facility] Clinical Pharmacist, Pharmacy Anticoagulation Clinic Pharmacy Anticoagulation Clinic Pager: [phone] documented in this encounterSt. John [facility] Miscellaneous Notes* Telephone Encounter - Darrell [...] Darrell Meyer LPN documented in this encounterSt. [facility] Miscellaneous Notes* Telephone Encounter - Twin Cole RPh - 07/05/2022 9:[address] [facility]agulation Clinic Anticoagulation Episode Summary Anticoagulation Care Providers Provider Role Specialty Phone number Guanakito Reno MD [facility] Medicine [phone] Cal Mitchell is a 77 year old [...] Pharmacy Anticoagulation Clinic Pharmacy Anticoagulation Clinic Pager: [phone]. * Telephone Encounter - Alejandro Molina RPh - 07/04/2022 3:42 PM EDT Cal Mitchell was called and reminded to test INR today or as soon as possible. * Telephone Encounter - Alejandro Molina [facility] - 2022 4:11 PM EDT Patient was due to test INR today. Will continue to monitor for results. documented in this encounterSt. John [facility]08-30-2022 Miscellaneous Notes* Telephone Encounter - Twin Cole [facility] - 06/14/2022 9:[address] [facility] Anticoagulation Clinic Anticoagulation Episode Summary Anticoagulation Care Providers Provider Role Specialty Phone number Guanakito Reno MD [facility] [phone] Cal Mitchell is a 76 year old [...] Pharmacy Anticoagulation Clinic Pharmacy Anticoagulation Clinic Pager: [phone]. * Telephone Encounter - Val Oliver RPh - 06/13/2022 9:09 AM EDT [employer] message sent as a reminder to test INR RAISSA. * Telephone Encounter - Alejandro Molina RPh - 06/06/2022 4:50 PM EDT Patient was due to test INR today. Will continue to monitor for results. documented in this encounterSt. John Of [facility]08-30-2022 History of Present illness Narrative* Nirmala Lim MA - 06/14/2022 9:03 AM EDT POPULATION HEALTH NAVIGATION OUTREACH Action/FYI Called and left a message to call [phone], to discuss health maintenance items that are due. Sent My Chart message. PCP appt: 01/19- needs follow up per last ov note My chart activation: active Advance directive: needs info HM due: Follow up ARIAN AD Pt identified by name and : NO Outreach Outcome/Action Unable to reach patient: Left message SampleOn Inct message sent Did you use a PCP flex slot to schedule this appointment? N/A Reason for Outreach Care Gap or Scheduling/Wellness visits Payer: Payor: [facility] MEDIC[facility] / Plan: UHC AARP MEDICARE HMO [...] 2022 9:05 AM documented in this encounterSt. John Of [facility]08-04-2022 Miscellaneous Notes* Telephone Encounter - Huong [...] advise. Yasemin Garcia Pss documented in this encounterSt. John Of [facility]08-01-2022 Miscellaneous Notes* Telephone Encounter - Alejandro Molina, [facility] - 05/16/2022 11:[address] [facility]ulatory Pharm[facility] Anticoagulation Clinic Anticoagulation Episode Summary Anticoagulation Care Providers Provider Role Specialty Phone number Guanakito Reno MD [facility] Family Practice [phone] Cal Mitchell is a 76 year old [...] instructed to call [facility] at [phone] with any questionsor concerns. Alejandro Molina RP Clinical Pharmacist, Pharmacy Anticoagulation Clinic Pharmacy Anticoagulation Clinic Pager: [phone] documented in this encounterSt. John Of [facility]07-11-2022 Miscellaneous Notes* Telephone Encounter - Val Oliver RPh - 04/25/2022 7:56 AM EDT Last INR due around 04/18. Glaukos message sent as a reminder to test INR RAISSA. PT INR (no units) Date Value 01/24/2022 2.1 biotel 10/26/2021 2.1 (Biotel) 03/04/2021 2.4 INR Home CoaguChek (no units) Date Value 04/02/2022 2.2 03/09/2022 2.6 02/10/2022 3.4 documented in this encounterSt. John Of [facility] Hospital06-15-2022 Miscellaneous Notes* Telephone Encounter - Ruthie Cuevas RPh - 03/30/2022 2:31 PM EDT Cal Lua [...] Ruthie Cuevas PharmD documented in this encounterSt. John Of [facility] Hospital06-01-2022 Miscellaneous Notes* Telephone Encounter - Nicki Nieto - 03/16/2022 10:46 AM EDT Patient is scheduled for an appt on 03/22/22 [place]. Did call the patient to see if any external imagine has been complete, left VM to call the office Or record indicates no testing has been completed since 2019 Would you like an updated carotid US Order pending please sign if correct Thanks documented in this encounterSt. John Of [facility] Hospital05-25-2022 Miscellaneous Notes* Telephone Encounter - Ruthie Cuevas RPh - 03/09/2022 4:[address] 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 Plan: Called and spoke to patient/caregiver Advised patient to continue current weekly dose Next home INR check scheduled on 03/23/2022 Ruthie Cuevas RPh Clinical Pharmacist, Pharmacy Anticoagulation Clinic Pharmacy Anticoagulation Clinic Pager: [phone] . documented in this encounterSt. John Of [facility] Hospital05-05-2022 Miscellaneous Notes* Telephone Encounter - Jazmyn Garcia RPh - 02/17/2022 1:17 PM EDT Patient due to test INR today. Will continue to monitor for results. Jazmyn Garcia RPh documented in this encounterSt. John Of [facility] Hospital04-29-2022 Miscellaneous Notes* Telephone Encounter - Denisse Hutchinson RPh - 02/11/2022 8:[address] [facility] Anticoagulation Episode Summary Anticoagulation Care Providers Provider Role Specialty Phone number Guanakito Reno MD [facility] [phone] Cal Mitchell is a 76 year old [...] ALLERGIES No Known Allergies Indication for Warfarin: correction (current) use of anticoagulants Paroxysmal atrial fibrillation (hcc) Anticoagulation Episode Summary Current INR goal: 2.0-3.0 Assessment: INR result of is SUPRAtherapeutic due to: unknown cause - did not speak to patient Plan: Sent [employer] message Advised patient to decrease dose for 2 days only then resume weekly regimen Next home INR check scheduled on 02/17/2022 Denisse Hutchinson RPh Clinical Pharmacist, Pharmacy Anticoagulation Clinic Pharmacy Anticoagulation Clinic Pager: [phone] . * Telephone Encounter - Twin Cole RPh - 02/08/2022 4:00 PM EDT Patient due to test INR today. Will continue to monitor for results. Twin Cole RPh documented in this encounterSt. John Of [facility] Hospital04-12-2022 Miscellaneous Notes* Telephone Encounter - Twin Cole RPh - 01/25/2022 9:[address] [facility] An[facility] Clinic Anticoagulation Episode Summary Anticoagulation Care Providers Provider Role Specialty Phone number Guanakito Reno MD Responsible [facility] [phone] Cal Mitchell is a 76 year old [...] Pharmacy Anticoagulation Clinic Pharmacy Anticoagulation Clinic Pager: [phone] . documented in this encounterSt. John Of [facility] Hospital04-06-2022 History of Present illness Narrative* Guanakito [...] No. Dementia: Had previously been following with [facility] Last visit 08/2020. Doesn't have anything further scheduled. Doesn't really want to go to [place], but appears last visit was distance. Does not drive. Lives w/ daughter. Stays up late at night and sleep during the day. A. Fib: Chronic anticoagulation. Denies any hematochezia/melena. Daughter does home checks. Follows w/ pharmacy. occ fall with no significant injury. Had been following with [facility], but unsure when he was last seen there. Diabetes. Does not check home blood sugars. Reports compliance w/ medication. Carotid artery stenosis. Follows w/ vascular. Last visit 10/20/20. Recommended follow-up with cardiology and then Dr. Devries in [place]. He did have echo done. Unsure if he followed up with [facility]. Per note, they wanted to establish with [facility] cardiology. BPH Stable. Up X 2 overnight. [...] Abs Lymph 1.00 - 4.00 k/uL 1.65 [place]% % 7.4 Abs [place] <0.87 k/uL 0.53 Eosin% % 8.2 Abs [...] Negative Negative Ketones, Urine Negative Negative Specific [place], Ur 1.005 - 1.030 1.016 Hemoglobin/Blood,Ur Negative [...] months and prn. documented in this encounterSt. John Of [facility] Hospital03-31-2022 Miscellaneous Notes* Telephone Encounter - Jazmyn Garcia RPh - 01/13/2022 2:33 PM EDT Patient due to test INR today. Will continue to monitor for results. Jazmyn Garcia RPh documented in this encounterSt. John Of [facility] Hospital11-11-2020 History of Past illness Narrative* Problem [...] this encounter (statuses as of 08/15/2023) [facility] of [facility] Narrative* Problem [...] this encounter (statuses as of 08/15/2023) [facility] Narrative* Problem [...] this encounter (statuses as of 08/16/2023) [facility] Narrative* Problem [...] this encounter (statuses as of 08/23/2023) [facility] Narrative* Problem [...] this encounter (statuses as of 09/06/2023) [facility] Narrative* Problem [...] of this encounter (statuses as of 09/20/2023) [facility] Narrative* Problem [...] this encounter (statuses as of 12/04/2023) [facility] Narrative* Problem [...] this encounter (statuses as of 12/21/2023) [facility] Narrative* Problem [...] this encounter (statuses as of 12/21/2023) [facility] Narrative* Problem [...] this encounter (statuses as of 12/22/2023) [facility] Narrative* Problem [...] this encounter (statuses as of 01/15/2024) [facility] Narrative* Problem [...] this encounter (statuses as of 01/18/2024) [facility] Narrative* Problem [...] this encounter (statuses as of 01/19/2022) [facility] Narrative* Problem [...] this encounter (statuses as of 01/25/2022) [facility] Narrative* Problem [...] this encounter (statuses as of 02/11/2022) [facility] Narrative* Problem [...] this encounter (statuses as of 03/09/2022) [facility] Narrative* Problem [...] this encounter (statuses as of 03/17/2022) [facility] Narrative* Problem [...] this encounter (statuses as of 03/18/2022) [facility] Narrative* Problem [...] this encounter (statuses as of 04/04/2022) [facility] Narrative* Problem [...] this encounter (statuses as of 04/25/2022) [facility] Narrative* Problem [...] this encounter (statuses as of 05/13/2022) [facility] N[facility]* Problem [...] this encounter (statuses as of 05/16/2022) [facility] N[facility]* Problem [...] this encounter (statuses as of 05/19/2022) [facility]* Problem [...] this encounter (statuses as of 06/14/2022) [facility] N[facility]* Problem [...] this encounter (statuses as of 07/05/2022) [facility] N[facility]* Problem [...] this encounter (statuses as of 07/22/2022) [facility] N[facility]ative* Problem [...] this encounter (statuses as of 08/01/2022) [facility] N[facility]ative* Problem [...] this encounter (statuses as of 08/15/2022) [facility]* Problem [...] this encounter (statuses as of 09/07/2022) [facility]* Problem [...] this encounter (statuses as of 09/15/2022) [facility]* Problem [...] this encounter (statuses as of 09/23/2022) [facility]* Problem [...] this encounter (statuses as of 09/29/2022) [facility]* Problem [...] this encounter (statuses as of 10/16/2022) [facility]* Problem [...] this encounter (statuses as of 10/25/2022) [facility]* Problem [...] this encounter (statuses as of 11/04/2022) [facility]* Problem [...] this encounter (statuses as of 11/08/2022) [facility]* Problem [...] this encounter (statuses as of 11/18/2022) [facility]* Problem [...] this encounter (statuses as of 11/28/2022) [facility]* Problem [...] this encounter (statuses as of 12/19/2022) [facility]* Problem [...] this encounter (statuses as of 01/12/2023) [facility]* Problem [...] this encounter (statuses as of 01/16/2023) [facility]* Problem [...] this encounter (statuses as of 02/07/2023) [facility]* Problem [...] this encounter (statuses as of 02/14/2023) [facility]* Problem [...] this encounter (statuses as of 03/29/2023) [facility]* Problem [...] this encounter (statuses as of 04/20/2023) [facility]* Problem [...] this encounter (statuses as of 04/24/2023) [facility]* Problem [...] this encounter (statuses as of 05/22/2023) [facility]* Problem [...] this encounter (statuses as of 06/28/2023) [facility]* Problem [...] this encounter (statuses as of 07/05/2023) [facility]* Problem [...] this encounter (statuses as of 07/27/2023) [facility] Diagnosis Essential hypertension- Primary Unspecified [...] CKD (HCC) [facility]* Diagnosis correction (current) use of anticoagulants- Primary Long-term (current) use of anticoagulants Paroxysmal atrial fibrillation (HCC) Atrial fibrillation [facility] this [facility]* Diagnosis buttermaker helper (current) use of anticoagulants- Primary Long-term (current) use of anticoagulants Paroxysmal atrial fibrillation (HCC) Atrial fibrillation [facility] this [facility]* Diagnosis buttermaker helper (current) use of anticoagulants- Primary Long-term (current) use of anticoagulants Paroxysmal atrial fibrillation (HCC) Atrial fibrillation [facility]* Diagnosis correction (current) use of anticoagulants- Primary Long-term (current) use of anticoagulants Paroxysmal atrial fibrillation (HCC) Atrial fibrillation [facility]* Diagnosis Bilateral carotid artery stenosis- Primary Occlusion and stenosis of carotid artery without mention of cerebral infarction Stenosis of left carotid artery Occlusion and stenosis of carotid artery without mention of cerebral infarction [facility]* Diagnosis buttermaker helper (current) use of anticoagulants- Primary Long-term (current) use of anticoagulants Paroxysmal atrial fibrillation (HCC) Atrial fibrillation [facility]* Diagnosis Benign prostatic hyperplasia without lower urinary tract symptoms Mixed dementia (HCC) Essential hypertension with goal blood pressure less than 140/90 Lung nodule Solitary pulmonary nodule Paroxysmal atrial fibrillation (HCC) Atrial fibrillation [facility]* Diagnosis Paroxysmal atrial fibrillation (HCC) Atrial fibrillation [facility]* Diagnosis Obesity, Class II, BMI 35-39.9- Primary Obesity, unspecified Paroxysmal atrial fibrillation (HCC) Atrial fibrillation Nonrheumatic aortic valve stenosis Aortic valve disorders Aortic valve disorder Aortic valve disorders [facility]* Diagnosis correction (current) use of anticoagulants- Primary Long-term (current) use of anticoagulants Paroxysmal atrial fibrillation (HCC) Atrial fibrillation [facility] Diagnosis Essential hypertension with goal blood pressure less than 140/[address] [facility]* Diagnosis buttermaker helper (current) use of anticoagulants- Primary Long-term (current) use of anticoagulants Paroxysmal atrial fibrillation (HCC) Atrial fibrillation [facility] this [facility]* Diagnosis Bilateral carotid artery stenosis- Primary Occlusion and stenosis of carotid artery without mention of cerebral infarction [facility]* Diagnosis correction (current) use of anticoagulants- Primary Long-term (current) use of anticoagulants Paroxysmal atrial fibrillation (HCC) Atrial fibrillation [facility]* Diagnosis Essential hypertension with goal blood pressure less than 140/[address] [facility]* [...] COVID-19 vaccine [facility]* Diagnosis Syncope, unspecified syncope type- Primary Aortic valve disorder Aortic valve disorders [facility]* Diagnosis Paroxysmal atrial fibrillation (HCC) Atrial fibrillation Essential hypertension with goal blood pressure less than 140/90 Benign prostatic hyperplasia without lower urinary tract symptoms Mixed dementia (HCC) Lung nodule Solitary pulmonary nodule Type 2 diabetes mellitus with stage 3 chronic kidney disease, without long-term current use of insulin (HCC) [facility] Diagnosis Essential hypertension with goal blood pressure less than 140/90 [address] [facility]* Diagnosis buttermaker helper (current) use of anticoagulants- Primary Long-term (current) use of anticoagulants Paroxysmal atrial fibrillation (HCC) Atrial fibrillation [facility]* Diagnosis Onychomycosis- Primary Dermatophytosis of [...] kidney disease (HCC) [facility] this [facility]* Diagnosis Renal insufficiency- Primary Unspecified disorder of kidney and ureter [facility] this [facility]* Diagnosis buttermaker helper (current) use of anticoagulants- Primary Long-term (current) use of anticoagulants Paroxysmal atrial fibrillation (HCC) Atrial fibrillation [facility] this [facility]* Diagnosis correction (current) use of anticoagulants- Primary Long-term (current) use of anticoagulants Paroxysmal atrial fibrillation (HCC) Atrial fibrillation [facility]* Diagnosis Abrasion of arm, left, initial encounter- Primary Chronic insomnia Insomnia, unspecified [facility] this [facility]* Diagnosis Essential hypertension with goal blood pressure less than 140/90 Paroxysmal atrial fibrillation (HCC) Atrial fibrillation [facility]* Diagnosis Lung nodule Solitary pulmonary nodule [facility] this [facility]* Diagnosis buttermaker helper (current) use of anticoagulants- Primary Long-term (current) use of anticoagulants Paroxysmal atrial fibrillation (HCC) Atrial fibrillation [facility] this [facility]* Diagnosis Syncope, unspecified syncope type- Primary Aortic valve disorder Aortic valve disorders Paroxysmal atrial fibrillation (HCC) Atrial fibrillation Ectatic thoracic aorta (HCC) 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, without long-term current use of insulin (HCC) [facility] this [facility]* [...] or 3b CKD (HCC) Mixed dementia (HCC) correction (current) use of anticoagulants Long-term (current) use of anticoagulants Obesity, Class II, BMI 35-39.9 Obesity, unspecified Renal insufficiency Unspecified disorder of kidney and ureter Anemia, unspecified type [facility] Diagnosis correction (current) use of anticoagulants- Primary Long-term (current) use of anticoagulants Paroxysmal atrial fibrillation (HCC) Atrial fibrillation [facility]* Diagnosis CKD (chronic kidney disease) stage 4, 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/min (HCC)- Primary Chronic kidney disease, Stage IV (severe) Anemia, unspecified type [facility]* Diagnosis [...] IV (severe) [facility] this [facility]* Diagnosis buttermaker helper (current) use of anticoagulants- Primary Long-term (current) use of anticoagulants Paroxysmal atrial fibrillation (HCC) Atrial fibrillation [facility] this [facility]* Diagnosis Renal insufficiency Unspecified disorder of kidney and ureter [facility] this [facility]* Diagnosis Essential hypertension- Primary Unspecified essential hypertension Hypertensive kidney disease with stage 3 chronic kidney disease, unspecified whether stage 3a or 3b CKD (HCC) Anemia, unspecified type [facility] Diagnosis buttermaker helper (current) use of anticoagulants- Primary Long-term (current) use of anticoagulants Paroxysmal atrial fibrillation (HCC) Atrial fibrillation [facility] this [facility] Diagnosis Blood pressure check- Primary Screening for hypertension Leg swelling Swelling of limb [facility] this [facility] Diagnosis Aortic valve stenosis, etiology of cardiac valve disease unspecified- Primary Hypertensive kidney disease with stage 3b chronic kidney disease (HCC) Paroxysmal atrial fibrillation (HCC) Atrial fibrillation Benign prostatic hyperplasia without lower urinary tract symptoms Anemia, unspecified type documented in this encounter [facility] note* Diagnosis buttermaker helper (current) use of anticoagulants- Primary Long-term (current) use of anticoagulants Paroxysmal atrial fibrillation (HCC) Atrial fibrillation documented in this encounter [facility] note* Diagnosis Screen for colon cancer- Primary Special screening for malignant neoplasms, colon documented in this encounter [facility] note* Diagnosis buttermaker helper (current) use of anticoagulants- Primary Long-term (current) use of anticoagulants Paroxysmal atrial fibrillation (HCC) Atrial fibrillation documented in this encounter [facility] note* Diagnosis Severe aortic stenosis [I35.0]- Primary Aortic valve disorders Valvular heart disease Endocarditis, valve unspecified, unspecified cause documented in this encounter [facility] note* Diagnosis Nonrheumatic aortic valve [...] unspecified, unspecified cause documented in this encounter [facility] note* Diagnosis Nonrheumatic aortic valve stenosis Aortic valve disorders Valvular heart disease Endocarditis, valve unspecified, unspecified cause documented in this encounter [facility] note* Diagnosis Essential hypertension- Primary [...] disease, Stage IV (severe) Mixed dementia (HCC) buttermaker helper (current) use of anticoagulants Long-term (current) use of anticoagulants Need for vaccination Need for prophylactic vaccination and inoculation against unspecified single disease Valvular heart disease Endocarditis, valve unspecified, unspecified cause documented in this encounter [facility] note* Diagnosis Essential hypertension- Primary Unspecified essential hypertension Valvular heart disease Endocarditis, valve unspecified, unspecified cause [facility] Diagnosis Paroxysmal atrial fibrillation (HCC)- Primary Atrial fibrillation Aortic valve stenosis, etiology of cardiac valve disease unspecified Valvular heart disease Endocarditis, valve unspecified, unspecified cause documented in this encounter [facility] note* Diagnosis Nonrheumatic aortic valve stenosis- Primary Aortic valve disorders Paroxysmal atrial fibrillation (HCC) Atrial fibrillation Valvular heart disease Endocarditis, valve unspecified, unspecified cause documented in this encounter [facility] note* Diagnosis Nonrheumatic aortic valve stenosis Aortic valve disorders Encounter for preprocedural cardiovascular examination Pre-operative cardiovascular examination [facility] Diagnosis correction (current) use of anticoagulants- Primary Long-term (current) use of anticoagulants Paroxysmal atrial fibrillation (HCC) Atrial fibrillation documented in this encounter [facility] note* Diagnosis Bilateral carotid artery stenosis- Primary Occlusion and stenosis of carotid artery without mention of cerebral infarction History of carotid endarterectomy Other postprocedural status documented in this encounter [facility] note* Diagnosis correction (current) use of anticoagulants- Primary Long-term (current) use of anticoagulants Paroxysmal atrial fibrillation (HCC) Atrial fibrillation [facility] Diagnosis Hyperlipidemia, mixed- Primary Mixed hyperlipidemia [...] (HCC) Chronic kidney disease, Stage IV (severe) buttermaker helper (current) use of anticoagulants Long-term (current) use of anticoagulants Obesity, Class II, BMI 35-39.9 Obesity, unspecified Viral conjunctivitis Unspecified diseases of conjunctiva due to viruses Seasonal allergic rhinitis, unspecified trigger Bilateral impacted cerumen Impacted cerumen documented in this encounter [facility] note* Diagnosis buttermaker helper (current) use of anticoagulants- Primary Long-term (current) use of anticoagulants Paroxysmal atrial fibrillation (HCC) [facility]rial [facility] Diagnosis Paroxysmal atrial fibrillation (HCC) Atrial fibrillation documented in this encounter [facility] for referral (narrative)* Outpatient Procedure (Routine) - Pending Review Specialty Diagnoses / Procedures Referred By Contac t Referred To Contact [facility] Diagnoses Bilateral carotid artery stenosis Procedures US CAROTID ARTERIES GRAY VAS LAB DUPLEX SCAN EXTRACRANIAL ART COMPL BI STUDY Alondra Prescott, DO [address] [place] [address] [facility] [address] [address] Referral ID Status Reason Start Date Expiration Date Visits Requested Visits Authorized [id number] Pending Review Auto-Generat ed Referral 03/18/2022 03/16/2023 1 1 [facility] for referral (narrative)* Outpatient Procedure (Routine) - Authorized Specialty Diagnoses / Procedures Referred By Contac t Referred To Contact [facility] Diagnoses Nonrheumatic aortic valve stenosis Procedures ECHO ECHO TTHRC R-T 2D W/WOM-MODE COMPL SPEC&COLR Pam Velazco MD [address] [place] [address] [facility] [address] [address] Referral ID Status Reason Start Date Expiration Date Visits Requested Visits Authorized [id number] Authorized Auto-Generat ed Referral 08/22/2022 08/15/2023 1 1 [facility] for referral (narrative)* Outpatient Procedure (Routine) - Pending Review Specialty Diagnoses / Procedures Referred By Contac t Referred To Contact [facility] Diagnoses Bilateral carotid artery stenosis Procedures US CAROTID ARTERIES GRAY VAS LAB DUPLEX SCAN EXTRACRANIAL ART COMPL BI STUDY Alondra Prescott DO [address] [place] [address] [facility] [address] [address] Referral ID Status Reason Start Date Expiration Date Visits Requested Visits Authorized [id number] Pending Review Auto-Generat ed Referral 2 10/04/2023 1 1 [facility] for referral (narrative)* Outpatient Procedure (Routine) - Authorized Specialty Diagnoses / Procedures Referred By Contac t Referred To Contact [facility] Diagnoses Syncope, unspecified syncope type Aortic valve disorder Procedures ECHO ECHO TTHRC R-T 2D W/WOM-MODE COMPL SPEC&COLR Pam Velazco MD [address] [place] [address] [facility] [address] [place] [address] Referral ID Status Reason Start Date Expiration Date Visits Requested Visits Authorized [id number] Authorized Auto-Generat ed Referral 02/20/2023 02/13/2024 1 1 [facility] for referral (narrative)* Outpatient Procedure (Routine) - Pending Review Specialty Diagnoses / Procedures Referred By Contac t Referred To Contact [facility] Diagnoses Syncope, unspecified syncope type Aortic valve disorder Procedures ECHO ECHO TTHRC R-T 2D W/WOM-MODE COMPL SPEC&COLPam Buchanan MD [address], [address] [place] [address] [facility] [address] [place] [address] Referral ID Status Reason Start Date Expiration Date Visits Requested Visits Authorized [id number] Pending Review Auto-Generat ed Referral 04/08/2024 03/25/2025 1 1 * Outpatient Procedure (Routine) - Pending Review Specialty Diagnoses / Procedures Referred By Contac t Referred To Contact [facility] Diagnoses Syncope, unspecified syncope type Aortic valve disorder Paroxysmal atrial fibrillation (HCC) Procedures ECG COMPLETE ECG ROUTINE ECG W/LEAST 12 LDS W/I&R Pam Reddy MD [address], [address] [place] [address] [facility] [address] [place] [address] Referral ID Status Reason Start Date Expiration Date Visits Requested Visits Authorized [id number] Pending Review Auto-Generat ed Referral 03/21/2024 03/21/2025 1 1 [facility] for referral (narrative)* Diagnostic Procedure Only (Routine) - Authorized Specialty Diagnoses / Procedures Referred By Contac t Referred To Contact [facility] Diagnoses Renal insufficiency Procedures US KIDNEY/BLADDER US RETROPERITONEAL REAL TIME W/IMAGE COMPLETE Guanakito Reno MD [address] [place] [address] [place] [address] Referral ID Status Reason Start Date Expiration Date Visits Requested Visits Authorized [id number] Authorized Auto-Generat ed Referral 03/26/2024 04/25/2025 1 1 * Outpatient Procedure (Routine) - Pending Review Specialty Diagnoses / Procedures Referred By Contac t Referred [facility] Diagnoses History of carotid endarterectomy Procedures US CAROTID ARTERIES GRAY VAS LAB DUPLEX SCAN EXTRACRANIAL ART COMPL BI STUDY Guanakito Rneo MD [address] [place] [address] [facility] [address] [address] Referral ID Status Reason Start Date Expiration Date Visits Requested Visits Authorized [id number] Pending Review Auto-Generat ed Referral 03/26/2024 03/26/2025 1 1 [facility] for referral (narrative)* Diagnostic Procedure Only (Routine) - Closed Specialty Diagnoses / Procedures Referred By Contac t Referred To Contact [facility] Diagnoses Renal insufficiency Procedures US KIDNEY/BLADDER US RETROPERITONEAL REAL TIME W/IMAGE COMPLETE Guanakito Reno MD [address] [place] [address] [place] [address] Referral ID Status Reason Start Date Expiration Date V isits Requested Visits Authorized [id number] Closed Auto-Generate d Referral 03/26/2024 04/25/[address] [facility] Diagnostic Procedure Only (Routine) - New Request Specialty Diagnoses / Procedures Referred By Anival aden Referred To Contact [facility] Diagnoses Bilateral carotid artery stenosis History of carotid endarterectomy Procedures US CAROTID BILATERAL Laura Iraheta MD [address] [facility] [address] [place] [address] [place] [address] Referral ID Status Reason Start Date Expiration Date Visits Requested Visits Authorized [id number] New Request Auto-Generat ed Referral 5 09/05/[address] [facility] Summary Purpose Family History No Family [...] Diagnoses Mixed dementia (HCC) Guanakito Reno MD [address] [place] [address] Referral ID Status Reason Start Date Expiration Date Visits Re quested Visits Authorized [id number] Closed 1 1 Referral ID Status Reason Start Date Expiration Date Visits Re quested Visits Authorized [id number] Closed 1 1 Specialty Diagnoses / Procedures Referred By Anival aden Referred To Contact Podiatry Diagnoses Onychomycosis Procedures CONSULT TO PODIATRY OFFICE/OUTPATIENT NEW HIGH MDM 60-74 MINUTES Guanakito Reno MD [address] [place] [address] Referral ID Status Reason Start Date Expiration Date Visits Requested Visits Authorized [id number] Pending Review PCP Requested Referral 3 08/13/2024 1 1 Specialty Diagnoses / Procedures Referred By Contac t Referred To Contact Nephrology Diagnoses CKD (chronic kidney disease) stage 4, 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/min (HCC) Anemia, unspecified type Procedures CONSULT TO NEPHROLOGY OFFICE/OUTPATIENT [facility] 60 MINUTES Guanakito Reno MD [address] [place] [address] Referral ID Status Reason Start Date Expiration Date Visits Requested Visits Authorized [id number] Authorized PCP Requested Referral 04/05/2024 04/05/2025 1 1 Specialty Diagnoses / Procedures Referred By Contac t Referred To Contact Vascular Surgery Diagnoses Stenosis of left carotid artery Procedures CONSULT TO VASCULAR SURGERY OFFICE/OUTPATIENT [facility] 60 MINUTES Josselyn Mayer, STONE BANKER.[facility] [address] [place] [address] Laura Iraheta MD [address] [place] [address] Referral ID Status Reason Start Date Expiration Date Visits Requested Visits Authorized [id number] Authorized PCP Requested Referral 07/10/2024 07/10/2025 1 1 Specialty Diagnoses / Procedures Referred By Contac t Referred To Contact Nephrology Diagnoses Chronic kidney disease, unspecified CKD stage Anemia in chronic kidney disease, unspecified CKD stage Procedures CONSULT TO NEPHROLOGY Josselyn Mayer, STONE BANKER.[employer] [address] [place] [address] Eladio Remy MD [address] [facility] [facility] [place] [address] Referral ID Status Reason Start Date Expiration Date Visits Requested Visits Authorized [id number] Ref Not Required PCP Requested Referral 07/10/2024 07/10/2025 1 1 Specialty Diagnoses / Procedures Referred By Contac t Referred To Contact Gerontology Diagnoses Dementia, unspecified dementia severity, unspecified dementia type, unspecified whether behavioral, psychotic, or mood disturbance or anxiety (HCC) Procedures CONSULT TO GERIATRICS OFFICE/OUTPATIENT [facility] 60 MINUTES Josselyn Mayer, STONE BANKER.[employer] [address] [place] [address] Referral ID Status Reason Start Date Expiration Date Visits Requested Visits Authorized [id number] Authorized PCP Requested Referral 07/10/2024 07/10/2025 1 1 Specialty Diagnoses / Procedures Referred By Contac t Referred To Contact CT IMAGING Diagnoses Nonrheumatic aortic valve stenosis Encounter for preprocedural cardiovascular examination Procedures CTA CHEST (GATED) WO/W IVCON CT ANGIOGRAPHY CHEST W/CONTRAST/NONCONTRAST Josselyn Mayer, STONE BANKER.[employer] [address] [place] [address] Fax: [place] [address] Referral ID Status Reason Start Date Expiration Date Visits Requested Visits Authorized [id number] Authorized Auto-Generat ed Referral 07/10/2024 08/09/2025 1 1 Specialty Diagnoses / Procedures Referred By Contac t Referred To Contact CT IMAGING Diagnoses Nonrheumatic aortic valve stenosis Encounter for preprocedural cardiovascular examination Procedures CTA ABD/PEL W IVCON CT ANGIO ABD&PLVIS CNTRST MTRL W/WO CNTRST IMGES Joseslyn Mayer, STONE B[employer]ER[employer] [address] [place] [address] [place] [address] Referral ID Status Reason Start Date Expiration Date Visits Requested Visits Authorized [id number] Authorized Auto-Generat ed Referral 07/10/2024 08/09/2025 1 1 Referral ID Status Reason Start Date Expiration Date V isits Requested Visits Authorized [id number] Closed Auto-Generate d Referral 07/10/2024 08/09/2025 1 1 Referral ID Status Reason Start Date Expiration Date V isits Requested Visits Authorized [id number] Closed Auto-Generate d Referral 07/10/2024 08/09/2025 1 [...] section and content) DATE CREATED AUTHOR 04/06/2018 [facility] DATE CREATED AUTHOR AUTHOR'S ORGANIZ ATION 08/03/2025 [facility] DATE CREATED AUTHOR AUTHOR'S ORGANIZ ATION 08/12/2025 [facility] DATE CREATED AUTHOR AUTHOR'S ORGANIZ ATION 08/26/2025 [facility] Source Comments (unrecognize d section and content) In the event this informatio n is protected by the Federal Confidentiality of Alcohol and Drug Abuse Patient Records regulations: The Federal rules restrict any use of the information to criminally investigate or prosecute any alcohol or drug abuse patient.[facility] the event this information is protected by the Federal Confidentiality of Alcohol and Drug Abuse Patient Records regulations: The Federal rules restrict any use of the information to criminally investigate or prosecute any alcohol or drug abuse patient.[facility] the event this information is protected by the Federal Confidentiality of Alcohol and Drug Abuse Patient Records regulations: The Federal rules restrict any use of the information to criminally investigate or prosecute any alcohol or drug abuse patient.[facility] the event this information is protected by the Federal Confidentiality of Alcohol and Drug Abuse Patient Records regulations: The Federal rules restrict any use of the information to criminally investigate or prosecute any alcohol or drug abuse patient.[facility] the event this information is protected by the Federal Confidentiality of Alcohol and Drug Abuse Patient Records regulations: The Federal rules restrict any use of the information to criminally investigate or prosecute any alcohol or drug abuse patient.[facility] the event this information is protected by the Federal Confidentiality of Alcohol and Drug Abuse Patient Records regulations: The Federal rules restrict any use of the information to criminally investigate or prosecute any alcohol or drug abuse patient.[facility] the event this information is protected by the Federal Confidentiality of Alcohol and Drug Abuse Patient Records regulations: The Federal rules restrict any use of the information to criminally investigate or prosecute any alcohol or drug abuse patient.[facility] the event this information is protected by the Federal Confidentiality of Alcohol and Drug Abuse Patient Records regulations: The Federal rules restrict any use of the information to criminally investigate or prosecute any alcohol or drug abuse patient.[facility] the event this information is protected by the Federal Confidentiality of Alcohol and Drug Abuse Patient Records regulations: The Federal rules restrict any use of the information to criminally investigate or prosecute any alcohol or drug abuse patient.[facility] the event this information is protected by the Federal Confidentiality of Alcohol and Drug Abuse Patient Records regulations: The Federal rules restrict any use of the information to criminally investigate or prosecute any alcohol or drug abuse patient.[facility] the event this information is protected by the Federal Confidentiality of Alcohol and Drug Abuse Patient Records regulations: The Federal rules restrict any use of the information to criminally investigate or prosecute any alcohol or drug abuse patient.[facility] the event this information is protected by the Federal Confidentiality of Alcohol and Drug Abuse Patient Records regulations: The Federal rules restrict any use of the information to criminally investigate or prosecute any alcohol or drug abuse patient.[facility] the event this information is protected by the Federal Confidentiality of Alcohol and Drug Abuse Patient Records regulations: The Federal rules restrict any use of the information to criminally investigate or prosecute any alcohol or drug abuse patient.[facility] the event this information is protected by the Federal Confidentiality of Alcohol and Drug Abuse Patient Records regulations: The Federal rules restrict any use of the information to criminally investigate or prosecute any alcohol or drug abuse patient.[facility] the event this information is protected by the Federal Confidentiality of Alcohol and Drug Abuse Patient Records regulations: The Federal rules restrict any use of the information to criminally investigate or prosecute any alcohol or drug abuse patient.[facility] the event this information is protected by the Federal Confidentiality of Alcohol and Drug Abuse Patient Records regulations: The Federal rules restrict any use of the information to criminally investigate or prosecute any alcohol or drug abuse patient.[facility] the event this information is protected by the Federal Confidentiality of Alcohol and Drug Abuse Patient Records regulations: The Federal rules restrict any use of the information to criminally investigate or prosecute any alcohol or drug abuse patient.[facility] the event this information is protected by the Federal Confidentiality of Alcohol and Drug Abuse Patient Records regulations: The Federal rules restrict any use of the information to criminally investigate or prosecute any alcohol or drug abuse patient.[facility] the event this information is protected by the Federal Confidentiality of Alcohol and Drug Abuse Patient Records regulations: The Federal rules restrict any use of the information to criminally investigate or prosecute any alcohol or drug abuse patient.[facility] the event this information is protected by the Federal Confidentiality of Alcohol and Drug Abuse Patient Records regulations: The Federal rules restrict any use of the information to criminally investigate or prosecute any alcohol or drug abuse patient.[facility] the event this information is protected by the Federal Confidentiality of Alcohol and Drug Abuse Patient Records regulations: The Federal rules restrict any use of the information to criminally investigate or prosecute any alcohol or drug abuse patient.[facility] the event this information is protected by the Federal Confidentiality of Alcohol and Drug Abuse Patient Records regulations: The Federal rules restrict any use of the information to criminally investigate or prosecute any alcohol or drug abuse patient.[facility] the event this information is protected by the Federal Confidentiality of Alcohol and Drug Abuse Patient Records regulations: The Federal rules restrict any use of the information to criminally investigate or prosecute any alcohol or drug abuse patient.[facility] the event this information is protected by the Federal Confidentiality of Alcohol and Drug Abuse Patient Records regulations: The Federal rules restrict any use of the information to criminally investigate or prosecute any alcohol or drug abuse patient.[facility] the event this information is protected by the Federal Confidentiality of Alcohol and Drug Abuse Patient Records regulations: The Federal rules restrict any use of the information to criminally investigate or prosecute any alcohol or drug abuse patient.[facility] the event this information is protected by the Federal Confidentiality of Alcohol and Drug Abuse Patient Records regulations: The Federal rules restrict any use of the information to criminally investigate or prosecute any alcohol or drug abuse patient.[facility] the event this information is protected by the Federal Confidentiality of Alcohol and Drug Abuse Patient Records regulations: The Federal rules restrict any use of the information to criminally investigate or prosecute any alcohol or drug abuse patient.[facility] the event this information is protected by the Federal Confidentiality of Alcohol and Drug Abuse Patient Records regulations: The Federal rules restrict any use of the information to criminally investigate or prosecute any alcohol or drug abuse patient.[facility] the event this information is protected by the Federal Confidentiality of Alcohol and Drug Abuse Patient Records regulations: The Federal rules restrict any use of the information to criminally investigate or prosecute any alcohol or drug abuse patient.[facility] HospitalIn the event this information is protected by the Federal Confidentiality of Alcohol and Drug Abuse Patient Records regulations: The Federal rules restrict any use of the information to criminally investigate or prosecute any alcohol or drug abuse patient.[facility] HospitalIn the event this information is protected by the Federal Confidentiality of Alcohol and Drug Abuse Patient Records regulations: The Federal rules restrict any use of the information to criminally investigate or prosecute any alcohol or drug abuse patient.[facility] HospitalIn the event this information is protected by the Federal Confidentiality of Alcohol and Drug Abuse Patient Records regulations: The Federal rules restrict any use of the information to criminally investigate or prosecute any alcohol or drug abuse patient.[facility] HospitalIn the event this information is protected by the Federal Confidentiality of Alcohol and Drug Abuse Patient Records regulations: The Federal rules restrict any use of the information to criminally investigate or prosecute any alcohol or drug abuse patient.[facility] HospitalIn the event this information is protected by the Federal Confidentiality of Alcohol and Drug Abuse Patient Records regulations: The Federal rules restrict any use of the information to criminally investigate or prosecute any alcohol or drug abuse patient.[facility] HospitalIn the event this information is protected by the Federal Confidentiality of Alcohol and Drug Abuse Patient Records regulations: The Federal rules restrict any use of the information to criminally investigate or prosecute any alcohol or drug abuse patient.[facility] HospitalIn the event this information is protected by the Federal Confidentiality of Alcohol and Drug Abuse Patient Records regulations: The Federal rules restrict any use of the information to criminally investigate or prosecute any alcohol or drug abuse patient.[facility] HospitalIn the event this information is protected by the Federal Confidentiality of Alcohol and Drug Abuse Patient Records regulations: The Federal rules restrict any use of the information to criminally investigate or prosecute any alcohol or drug abuse patient.[facility] HospitalIn the event this information is protected by the Federal Confidentiality of Alcohol and Drug Abuse Patient Records regulations: The Federal rules restrict any use of the information to criminally investigate or prosecute any alcohol or drug abuse patient.[facility] HospitalIn the event this information is protected by the Federal Confidentiality of Alcohol and Drug Abuse Patient Records regulations: The Federal rules restrict any use of the information to criminally investigate or prosecute any alcohol or drug abuse patient.[facility] HospitalIn the event this information is protected by the Federal Confidentiality of Alcohol and Drug Abuse Patient Records regulations: The Federal rules restrict any use of the information to criminally investigate or prosecute any alcohol or drug abuse patient.[facility] HospitalIn the event this information is protected by the Federal Confidentiality of Alcohol and Drug Abuse Patient Records regulations: The Federal rules restrict any use of the information to criminally investigate or prosecute any alcohol or drug abuse patient.[facility] HospitalIn the event this information is protected by the Federal Confidentiality of Alcohol and Drug Abuse Patient Records regulations: The Federal rules restrict any use of the information to criminally investigate or prosecute any alcohol or drug abuse patient.[facility] HospitalIn the event this information is protected by the Federal Confidentiality of Alcohol and Drug Abuse Patient Records regulations: The Federal rules restrict any use of the information to criminally investigate or prosecute any alcohol or drug abuse patient.[facility] HospitalIn the event this information is protected by the Federal Confidentiality of Alcohol and Drug Abuse Patient Records regulations: The Federal rules restrict any use of the information to criminally investigate or prosecute any alcohol or drug abuse patient.[facility] HospitalIn the event this information is protected by the Federal Confidentiality of Alcohol and Drug Abuse Patient Records regulations: The Federal rules restrict any use of the information to criminally investigate or prosecute any alcohol or drug abuse patient.[facility] HospitalIn the event this information is protected by the Federal Confidentiality of Alcohol and Drug Abuse Patient Records regulations: The Federal rules restrict any use of the information to criminally investigate or prosecute any alcohol or drug abuse patient.[facility] HospitalIn the event this information is protected by the Federal Confidentiality of Alcohol and Drug Abuse Patient Records regulations: The Federal rules restrict any use of the information to criminally investigate or prosecute any alcohol or drug abuse patient.[facility] HospitalIn the event this information is protected by the Federal Confidentiality of Alcohol and Drug Abuse Patient Records regulations: The Federal rules restrict any use of the information to criminally investigate or prosecute any alcohol or drug abuse patient.[facility] HospitalIn the event this information is protected by the Federal Confidentiality of Alcohol and Drug Abuse Patient Records regulations: The Federal rules restrict any use of the information to criminally investigate or prosecute any alcohol or drug abuse patient.[facility] HospitalIn the event this information is protected by the Federal Confidentiality of Alcohol and Drug Abuse Patient Records regulations: The Federal rules restrict any use of the information to criminally investigate or prosecute any alcohol or drug abuse patient.[facility] HospitalIn the event this information is protected by the Federal Confidentiality of Alcohol and Drug Abuse Patient Records regulations: The Federal rules restrict any use of the information to criminally investigate or prosecute any alcohol or drug abuse patient.[facility] HospitalIn the event this information is protected by the Federal Confidentiality of Alcohol and Drug Abuse Patient Records regulations: The Federal rules restrict any use of the information to criminally investigate or prosecute any alcohol or drug abuse patient.[facility] HospitalIn the event this information is protected by the Federal Confidentiality of Alcohol and Drug Abuse Patient Records regulations: The Federal rules restrict any use of the information to criminally investigate or prosecute any alcohol or drug abuse patient.[facility] HospitalIn the event this information is protected by the Federal Confidentiality of Alcohol and Drug Abuse Patient Records regulations: The Federal rules restrict any use of the information to criminally investigate or prosecute any alcohol or drug abuse patient.[facility] HospitalIn the event this information is protected by the Federal Confidentiality of Alcohol and Drug Abuse Patient Records regulations: The Federal rules restrict any use of the information to criminally investigate or prosecute any alcohol or drug abuse patient.[facility] HospitalIn the event this information is protected by the Federal Confidentiality of Alcohol and Drug Abuse Patient Records regulations: The Federal rules restrict any use of the information to criminally investigate or prosecute any alcohol or drug abuse patient.[facility] HospitalIn the event this information is protected by the Federal Confidentiality of Alcohol and Drug Abuse Patient Records regulations: The Federal rules restrict any use of the information to criminally investigate or prosecute any alcohol or drug abuse patient.[facility] HospitalIn the event this information is protected by the Federal Confidentiality of Alcohol and Drug Abuse Patient Records regulations: The Federal rules restrict any use of the information to criminally investigate or prosecute any alcohol or drug abuse patient.[facility] HospitalIn the event this information is protected by the Federal Confidentiality of Alcohol and Drug Abuse Patient Records regulations: The Federal rules restrict any use of the information to criminally investigate or prosecute any alcohol or drug abuse patient.[facility] HospitalIn the event this information is protected by the Federal Confidentiality of Alcohol and Drug Abuse Patient Records regulations: The Federal rules restrict any use of the information to criminally investigate or prosecute any alcohol or drug abuse patient.[facility] HospitalIn the event this information is protected by the Federal Confidentiality of Alcohol and Drug Abuse Patient Records regulations: The Federal rules restrict any use of the information to criminally investigate or prosecute any alcohol or drug abuse patient.[facility] HospitalIn the event this information is protected by the Federal Confidentiality of Alcohol and Drug Abuse Patient Records regulations: The Federal rules restrict any use of the information to criminally investigate or prosecute any alcohol or drug abuse patient.[facility] HospitalIn the event this information is protected by the Federal Confidentiality of Alcohol and Drug Abuse Patient Records regulations: The Federal rules restrict any use of the information to criminally investigate or prosecute any alcohol or drug abuse patient.[facility] HospitalIn the event this information is protected by the Federal Confidentiality of Alcohol and Drug Abuse Patient Records regulations: The Federal rules restrict any use of the information to criminally investigate or prosecute any alcohol or drug abuse patient.[facility] HospitalIn the event this information is protected by the Federal Confidentiality of Alcohol and Drug Abuse Patient Records regulations: The Federal rules restrict any use of the information to criminally investigate or prosecute any alcohol or drug abuse patient.[facility] HospitalIn the event this information is protected by the Federal Confidentiality of Alcohol and Drug Abuse Patient Records regulations: The Federal rules restrict any use of the information to criminally investigate or prosecute any alcohol or drug abuse patient.[facility] HospitalIn the event this information is protected by the Federal Confidentiality of Alcohol and Drug Abuse Patient Records regulations: The Federal rules restrict any use of the information to criminally investigate or prosecute any alcohol or drug abuse patient.[facility] HospitalIn the event this information is protected by the Federal Confidentiality of Alcohol and Drug Abuse Patient Records regulations: The Federal rules restrict any use of the information to criminally investigate or prosecute any alcohol or drug abuse patient.[facility] HospitalIn the event this information is protected by the Federal Confidentiality of Alcohol and Drug Abuse Patient Records regulations: The Federal rules restrict any use of the information to criminally investigate or prosecute any alcohol or drug abuse patient.[facility] HospitalIn the event this information is protected by the Federal Confidentiality of Alcohol and Drug Abuse Patient Records regulations: The Federal rules restrict any use of the information to criminally investigate or prosecute any alcohol or drug abuse patient.[facility] HospitalIn the event this information is protected by the Federal Confidentiality of Alcohol and Drug Abuse Patient Records regulations: The Federal rules restrict any use of the information to criminally investigate or prosecute any alcohol or drug abuse patient.[facility] the event this information is protected by the Federal Confidentiality of Alcohol and Drug Abuse Patient Records regulations: The Federal rules restrict any use of the information to criminally investigate or prosecute any alcohol or drug abuse patient.[facility] HospitalIn the event this information is protected by the Federal Confidentiality of Alcohol and Drug Abuse Patient Records regulations: The Federal rules restrict any use of the information to criminally investigate or prosecute any alcohol or drug abuse patient.[facility] HospitalIn the event this information is protected by the Federal Confidentiality of Alcohol and Drug Abuse Patient Records regulations: The Federal rules restrict any use of the information to criminally investigate or prosecute any alcohol or drug abuse patient.[facility] HospitalIn the event this information is protected by the Federal Confidentiality of Alcohol and Drug Abuse Patient Records regulations: The Federal rules restrict any use of the information to criminally investigate or prosecute any alcohol or drug abuse patient.[facility] HospitalIn the event this information is protected by the Federal Confidentiality of Alcohol and Drug Abuse Patient Records regulations: The Federal rules restrict any use of the information to criminally investigate or prosecute any alcohol or drug abuse patient.[facility] HospitalIn the event this information is protected by the Federal Confidentiality of Alcohol and Drug Abuse Patient Records regulations: The Federal rules restrict any use of the information to criminally investigate or prosecute any alcohol or drug abuse patient.[facility] HospitalIn the event this information is protected by the Federal Confidentiality of Alcohol and Drug Abuse Patient Records regulations: The Federal rules restrict any use of the information to criminally investigate or prosecute any alcohol or drug abuse patient.[facility] HospitalIn the event this information is protected by the Federal Confidentiality of Alcohol and Drug Abuse Patient Records regulations: The Federal rules restrict any use of the information to criminally investigate or prosecute any alcohol or drug abuse patient.[facility] HospitalIn the event this information is protected by the Federal Confidentiality of Alcohol and Drug Abuse Patient Records regulations: The Federal rules restrict any use of the information to criminally investigate or prosecute any alcohol or drug abuse patient.[facility] HospitalIn the event this information is protected by the Federal Confidentiality of Alcohol and Drug Abuse Patient Records regulations: The Federal rules restrict any use of the information to criminally investigate or prosecute any alcohol or drug abuse patient.[facility] HospitalIn the event this information is protected by the Federal Confidentiality of Alcohol and Drug Abuse Patient Records regulations: The Federal rules restrict any use of the information to criminally investigate or prosecute any alcohol or drug abuse patient.[facility] HospitalIn the event this information is protected by the Federal Confidentiality of Alcohol and Drug Abuse Patient Records regulations: The Federal rules restrict any use of the information to criminally investigate or prosecute any alcohol or drug abuse patient.[facility] HospitalIn the event this information is protected by the Federal Confidentiality of Alcohol and Drug Abuse Patient Records regulations: The Federal rules restrict any use of the information to criminally investigate or prosecute any alcohol or drug abuse patient.[facility] HospitalIn the event this information is protected by the Federal Confidentiality of Alcohol and Drug Abuse Patient Records regulations: The Federal rules restrict any use of the information to criminally investigate or prosecute any alcohol or drug abuse patient.[facility] HospitalIn the event this information is protected by the Federal Confidentiality of Alcohol and Drug Abuse Patient Records regulations: The Federal rules restrict any use of the information to criminally investigate or prosecute any alcohol or drug abuse patient.[facility] HospitalIn the event this information is protected by the Federal Confidentiality of Alcohol and Drug Abuse Patient Records regulations: The Federal rules restrict any use of the information to criminally investigate or prosecute any alcohol or drug abuse patient.[facility] HospitalIn the event this information is protected by the Federal Confidentiality of Alcohol and Drug Abuse Patient Records regulations: The Federal rules restrict any use of the information to criminally investigate or prosecute any alcohol or drug abuse patient.[facility] HospitalIn the event this information is protected by the Federal Confidentiality of Alcohol and Drug Abuse Patient Records regulations: The Federal rules restrict any use of the information to criminally investigate or prosecute any alcohol or drug abuse patient.[facility] HospitalIn the event this information is protected by the Federal Confidentiality of Alcohol and Drug Abuse Patient Records regulations: The Federal rules restrict any use of the information to criminally investigate or prosecute any alcohol or drug abuse patient.[facility] HospitalIn the event this information is protected by the Federal Confidentiality of Alcohol and Drug Abuse Patient Records regulations: The Federal rules restrict any use of the information to criminally investigate or prosecute any alcohol or drug abuse patient.[facility] HospitalIn the event this information is protected by the Federal Confidentiality of Alcohol and Drug Abuse Patient Records regulations: The Federal rules restrict any use of the information to criminally investigate or prosecute any alcohol or drug abuse patient.[facility] HospitalIn the event this information is protected by the Federal Confidentiality of Alcohol and Drug Abuse Patient Records regulations: The Federal rules restrict any use of the information to criminally investigate or prosecute any alcohol or drug abuse patient.[facility] HospitalIn the event this information is protected by the Federal Confidentiality of Alcohol and Drug Abuse Patient Records regulations: The Federal rules restrict any use of the information to criminally investigate or prosecute any alcohol or drug abuse patient.[facility] HospitalIn the event this information is protected by the Federal Confidentiality of Alcohol and Drug Abuse Patient Records regulations: The Federal rules restrict any use of the information to criminally investigate or prosecute any alcohol or drug abuse patient.[facility] HospitalIn the event this information is protected by the Federal Confidentiality of Alcohol and Drug Abuse Patient Records regulations: The Federal rules restrict any use of the information to criminally investigate or prosecute any alcohol or drug abuse patient.[facility] HospitalIn the event this information is protected by the Federal Confidentiality of Alcohol and Drug Abuse Patient Records regulations: The Federal rules restrict any use of the information to criminally investigate or prosecute any alcohol or drug abuse patient.[facility] HospitalIn the event this information is protected by the Federal Confidentiality of Alcohol and Drug Abuse Patient Records regulations: The Federal rules restrict any use of the information to criminally investigate or prosecute any alcohol or drug abuse patient.[facility] HospitalIn the event this information is protected by the Federal Confidentiality of Alcohol and Drug Abuse Patient Records regulations: The Federal rules restrict any use of the information to criminally investigate or prosecute any alcohol or drug abuse patient.[facility] HospitalIn the event this information is protected by the Federal Confidentiality of Alcohol and Drug Abuse Patient Records regulations: The Federal rules restrict any use of the information to criminally investigate or prosecute any alcohol or drug abuse patient.[facility] HospitalIn the event this information is protected by the Federal Confidentiality of Alcohol and Drug Abuse Patient Records regulations: The Federal rules restrict any use of the information to criminally investigate or prosecute any alcohol or drug abuse patient.[facility] HospitalIn the event this information is protected by the Federal Confidentiality of Alcohol and Drug Abuse Patient Records regulations: The Federal rules restrict any use of the information to criminally investigate or prosecute any alcohol or drug abuse patient.[facility] HospitalIn the event this information is protected by the Federal Confidentiality of Alcohol and Drug Abuse Patient Records regulations: The Federal rules restrict any use of the information to criminally investigate or prosecute any alcohol or drug abuse patient.[facility] HospitalIn the event this information is protected by the Federal Confidentiality of Alcohol and Drug Abuse Patient Records regulations: The Federal rules restrict any use of the information to criminally investigate or prosecute any alcohol or drug abuse patient.[facility] HospitalIn the event this information is protected by the Federal Confidentiality of Alcohol and Drug Abuse Patient Records regulations: The Federal rules restrict any use of the information to criminally investigate or prosecute any alcohol or drug abuse patient.[facility] HospitalIn the event this information is protected by the Federal Confidentiality of Alcohol and Drug Abuse Patient Records regulations: The Federal rules restrict any use of the information to criminally investigate or prosecute any alcohol or drug abuse patient.[facility] HospitalIn the event this information is protected by the Federal Confidentiality of Alcohol and Drug Abuse Patient Records regulations: The Federal rules restrict any use of the information to criminally investigate or prosecute any alcohol or drug abuse patient.[facility] HospitalIn the event this information is protected by the Federal Confidentiality of Alcohol and Drug Abuse Patient Records regulations: The Federal rules restrict any use of the information to criminally investigate or prosecute any alcohol or drug abuse patient.[facility] HospitalIn the event this information is protected by the Federal Confidentiality of Alcohol and Drug Abuse Patient Records regulations: The Federal rules restrict any use of the information to criminally investigate or prosecute any alcohol or drug abuse patient.[facility] HospitalIn the event this information is protected by the Federal Confidentiality of Alcohol and Drug Abuse Patient Records regulations: The Federal rules restrict any use of the information to criminally investigate or prosecute any alcohol or drug abuse patient.[facility] HospitalIn the event this information is protected by the Federal Confidentiality of Alcohol and Drug Abuse Patient Records regulations: The Federal rules restrict any use of the information to criminally investigate or prosecute any alcohol or drug abuse patient.[facility] Reason for Visit (unrecogniz ed section and content) Reason Comments Follow Up Specialty Diagnoses / Procedures Referred By Anival aden Referred To Contact Family Practice / FAMILY MEDICINE Diagnoses Follow up/not seen since 02/2020 Procedures 4C EST Self Corrina Lennon, [employer] [address] [place] [address] Referral ID Status Reason Start Date Expiration Date V isits Requested Visits Authorized [id number] Closed Patient Cleared - INN Insurance Found [...] Date Comments Population Health Navigation Outreach 06/14/2022 [facility] care gaps Reason Onset Date Comments Anticoagulation 06/06/2022 Home INR Reason Onset Date Comments Anticoagulation 2022 INR result Reason Onset Date Comments Refill Request 07/22/2022 Reason Onset Date Comments Anticoagulation Telephone Fu 08/01/2022 Gabrielle e INR Result Reason Comments Consult Specialty Diagnoses / Procedures Referred By Anival t Referred To Contact Cardiology / CARD ADMIN [facility] Diagnoses Paroxysmal atrial fibrillation (HCC) Nonrheumatic aortic valve stenosis Procedures CONSULT TO CARDIOLOGY OFFICE/OUTPATIENT [facility] 60-74 MINUTES Corrina Lennon APRN.ELECTRICIAN [employer]IP [address] [place] [address] Card Admin [facility] [address] [place] [address] Referral ID Status Reason Start Date Expiration Date V isits Requested Visits Authorized [id number] Closed PCP Requested Referral 02/28/2022 10/15/2022 1 [...] e INR Result Reason Onset Date Comments QI SMITH RN 2023 Medication Ad herence review per request of payer Reason Onset Date Comments Refill Request 07/04/2023 Reason Comments 6 Month Exam Reason Comments Results Reason Onset Date Comments QI SMITH RN 09/05/2023 Medication Ad herence review per [...] REAL TIME W/IMAGE COMPLETE Guanakito Reno MD [address] [place] [address] [place] [address] Referral ID Status Reason Start Date Expiration Date V isits Requested Visits Authorized [id number] Closed Auto-Generate d Referral 03/26/2024 04/25/2025 1 1 Reason Comments Follow Up htn- ultrasound on k idneys and labs, family worried about falls 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 Reason Comments Edema Bilateral leg [...] 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 Ak Live Ammunition Inspector [address] [facility] [place] [place] [address] Referral ID Status Reason Start Date Expiration Date Visits Re quested Visits Authorized [id number] 1 Reason Onset Date Comments Anticoagulation [...] e INR Result Reason Comments Faxed to [facility] Reason Onset Date Comments Refill Request 04/08/2025 Reason Comments Patient Question Care Teams (unrecognized sec tion and content) Boring And Filling Machine Operator Relationship Specialty Start Date End Date Guanakito Reno MD [address] [place], [place] [address] PCP - General Family Practice 05/24/18 13, Pharmacist [phone] [place] [address] Pharmacist Pharmacy 05/31/21 Boring And Filling Machine Operator Relationship Specialty Start Date End Date Guanakito Reno MD [address] [place] [address] PCP - General Family Practice 05/24/18 13, Pharmacist [address] [place] [address] Pharmacist Pharmacy 05/31/21 Boring And Filling Machine Operator Relationship Specialty Start Date End Date Guanakito Reno MD [address] [place] [address] PCP - General Family Practice 05/24/18 13, Pharmacist [address] [place] [address] Pharmacist Pharmacy 05/31/21 Boring And Filling Machine Operator Relationship Specialty Start Date End Date Guanakito Reno MD [address] [place], [place] [address] PCP - General Family Practice 05/24/18 13, Pharmacist [id number] [facility] [place] [address] Pharmacist Pharmacy 05/31/21 Boring And Filling Machine Operator Relationship Specialty Start Date End Date Guanakito Reno MD [address] [facility] [place] [address] PCP - General Family Practice 05/24/18 13, Pharmacist [phone] [facility] [place] [address] Pharmacist Pharmacy 05/31/21 Boring And Filling Machine Operator Relationship Specialty Start Date End Date Guanakito Reno MD [address] [facility] [place] [address] PCP - General Family Practice 05/24/18 13, Pharmacist [phone] [facility] [place] [address] Pharmacist Pharmacy 05/31/21 Boring And Filling Machine Operator Relationship Specialty Start Date End Date Guanakito Reno MD [address] [facility] [place] [address] PCP - General Family Practice 05/24/18 13, Pharmacist [address]1 [facility] [place] [address] Pharmacist Pharmacy 05/31/21 Boring And Filling Machine Operator Relationship Specialty Start Date End Date Guanakito Reno MD [address] [place] [address] PCP - General Family Practice 05/24/18 13, Pharmacist [phone] [facility] [place] [address] Pharmacist Pharmacy 05/31/21 Boring And Filling Machine Operator Relationship Specialty Start Date End Date Guanakito Reno MD [address] [facility] [place] [address] PCP - General Family Practice 05/24/18 13, Pharmacist [phone] [facility] [place] [address] Pharmacist Pharmacy 05/31/21 Boring And Filling Machine Operator Relationship Specialty Start Date End Date Guanakito Reno MD [address] [facility] [place] [address] PCP - General Family Medicine 05/24/18 13, Pharmacist [phone] [facility] [place] [address] Pharmacist Pharmacy 05/31/21 Boring And Filling Machine Operator Relationship Specialty Start Date End Date Guanakito Reno MD [address] [place] [address] PCP - General Family Medicine 05/24/18 13, Pharmacist [phone] [facility] [place] [address] Pharmacist Pharmacy 05/31/21 Boring And Filling Machine Operator Relationship Specialty Start Date End Date Guanakito Reno MD [address] [place] [address] PCP - General Family Medicine 05/24/18 13, Pharmacist [phone] [place] [address] Pharmacist Pharmacy 05/31/21 Boring And Filling Machine Operator Relationship Specialty Start Date End Date Guanakito Reno MD [address] [place] [address] PCP - General Family Medicine 05/24/18 13, Pharmacist [phone] [place] [address], [place] [address] Pharmacist Pharmacy 05/31/21 Boring And Filling Machine Operator Relationship Specialty Start Date End Date Guanakito Reno MD [address] [place] [address] PCP - General Family Medicine 05/24/18 13, Pharmacist [address] [facility] [place] [address] Pharmacist Pharmacy 05/31/21 Boring And Filling Machine Operator Relationship Specialty Start Date End Date Guanakito Reno MD [address] [place] [address] PCP - General Family Medicine 05/24/18 13, Pharmacist [phone] [facility] [place] [address] Pharmacist Pharmacy 05/31/21 Boring And Filling Machine Operator Relationship Specialty Start Date End Date Guanakito Reno MD [address] [facility] [place] [address] PCP - General Family Medicine 05/24/18 13, Pharmacist [address] [place] [address] Pharmacist Pharmacy 05/31/21 Boring And Filling Machine Operator Relationship Specialty Start Date End Date Guanakito Reno MD [address] [place] [address] PCP - General Family Medicine 05/24/18 13, Pharmacist [phone] [facility] [place] [address] Pharmacist Pharmacy 05/31/21 Boring And Filling Machine Operator Relationship Specialty Start Date End Date Guanakito Reno MD [address] [place] [address] PCP - General Family Medicine 05/24/18, Pharmacist [phone] [facility] [place] [address] Pharmacist Pharmacy 05/31/21 Boring And Filling Machine Operator Relationship Specialty Start Date End Date Guanakito Reno MD [address] [place] [address] PCP - General Family Medicine 05/24/18 13, Pharmacist [address] [place] [address] Pharmacist Pharmacy 05/31/21 Boring And Filling Machine Operator Relationship Specialty Start Date End Date Guanakito Reno MD [address] [place] [address] PCP - General Family Medicine 05/24/18 13, Pharmacist [phone] [facility] [place] [address] Pharmacist Pharmacy 05/31/21 Boring And Filling Machine Operator Relationship Specialty Start Date End Date Guanakito Reno MD [address] [place] [address] PCP - General Family Medicine 05/24/18 13, Pharmacist [phone] [place] [address] Pharmacist Pharmacy 05/31/21 Boring And Filling Machine Operator Relationship Specialty Start Date End Date Guanakito Reno MD [address] [facility] [place] [address] PCP - General Family Medicine 05/24/18 13, Pharmacist [address] [place] [address] Pharmacist Pharmacy 05/31/21 Boring And Filling Machine Operator Relationship Specialty Start Date End Date Guanakito Reno MD [address] [place] [address] PCP - General Family Medicine 05/24/18 13, Pharmacist [address] [place] [address] Pharmacist Pharmacy 05/31/21 Boring And Filling Machine Operator Relationship Specialty Start Date End Date Guanakito Reno MD [address] [place] [address] PCP - General Family Medicine 05/24/18 13, Pharmacist [address] [place] [address] Pharmacist Pharmacy 05/31/21 Boring And Filling Machine Operator Relationship Specialty Start Date End Date Guanakito Reno MD [address] [place] [address] PCP - General Family Medicine 05/24/18 13, Pharmacist [address] [place] [address] Pharmacist Pharmacy 05/31/21 Boring And Filling Machine Operator Relationship Specialty Start Date End Date Guanakito Reno MD [address] [place] [address] PCP - General Family Medicine 05/24/18 13, Pharmacist [address] [place] [address] Pharmacist Pharmacy 05/31/21 Boring And Filling Machine Operator Relationship Specialty Start Date End Date Guanakito Reno MD [address] [place] [address] PCP - General Family Medicine 05/24/18 13, Pharmacist [address] [place] [address] Pharmacist Pharmacy 05/31/21 Boring And Filling Machine Operator Relationship Specialty Start Date End Date Guanakito Reno MD [address] [place] [address] PCP - General Family Medicine 05/24/18, Pharmacist [address] [place] [address] Pharmacist Pharmacy 05/31/21 Boring And Filling Machine Operator Relationship Specialty Start Date End Date Guanakito Reno MD [address] [place] [address] PCP - General Family Medicine 05/24/18 13, Pharmacist [address] [place] [address] Pharmacist Pharmacy 05/31/21 Boring And Filling Machine Operator Relationship Specialty Start Date End Date Guanakito Reno MD [address] [place] [address] PCP - General Family Medicine 05/24/18, Pharmacist [address] [place] [address] Pharmacist Pharmacy 05/31/21 Boring And Filling Machine Operator Relationship Specialty Start Date End Date Guanakito Reno MD [address] [place] [address] PCP - General Family Medicine 05/24/18 13, Pharmacist [address] [place] [address] Pharmacist Pharmacy 05/31/21 Boring And Filling Machine Operator Relationship Specialty Start Date End Date Guanakito Reno MD [address] [place] [address] PCP - General Family Medicine 05/24/18 13, Pharmacist [address] [place] [address] Pharmacist Pharmacy 05/31/21 Boring And Filling Machine Operator Relationship Specialty Start Date End Date Guanakito Reno MD [address] [place] [address] PCP - General Family Medicine 05/24/18 13, Pharmacist [address] [place] [address] Pharmacist Pharmacy 05/31/21 Boring And Filling Machine Operator Relationship Specialty Start Date End Date Guanakito Reno MD [address] [place] [address] PCP - General Family Medicine 05/24/18, Pharmacist [address] [place] [address] Pharmacist Pharmacy 05/31/21 Boring And Filling Machine Operator Relationship Specialty Start Date End Date Guanakito Reno MD [address] [place] [address] PCP - General Family Medicine 05/24/18 13, Pharmacist [address] [place] [address] Pharmacist Pharmacy 05/31/21 Boring And Filling Machine Operator Relationship Specialty Start Date End Date Guanakito Reno MD [address] [place] [address] PCP - General Family Medicine 05/24/18 13, Pharmacist [address] [place] [address] Pharmacist Pharmacy 05/31/21 Boring And Filling Machine Operator Relationship Specialty Start Date End Date Guanakito Reno MD [address] [place] [address] PCP - General Family Medicine 05/24/18 13, Pharmacist [address] [place] [address] Pharmacist Pharmacy 05/31/21 Boring And Filling Machine Operator Relationship Specialty Start Date End Date Guanakito Reno MD [address] [place] [address] PCP - General Family Medicine 05/24/18 13, Pharmacist [address] [place] [address] Pharmacist Pharmacy 05/31/21 Boring And Filling Machine Operator Relationship Specialty Start Date End Date Guanakito Reno MD [address] [place] [address] PCP - General Family Medicine 05/24/18 13, Pharmacist [address] [place] [address] Pharmacist Pharmacy 05/31/21 Boring And Filling Machine Operator Relationship Specialty Start Date End Date Guanakito Reno MD [address] [place] [address] PCP - General Family Medicine 05/24/18 13, Pharmacist [address] [place] [address] Pharmacist Pharmacy 05/31/21 Boring And Filling Machine Operator Relationship Specialty Start Date End Date Guanakito Reno MD [address] [place] [address] PCP - General Family Medicine 05/24/18 13, Pharmacist [address] [place] [address] Pharmacist Pharmacy 05/31/21 Boring And Filling Machine Operator Relationship Specialty Start Date End Date Guanakito Reno MD [address] [place] [address] PCP - General Family Medicine 05/24/18 13, Pharmacist [address] [place] [address] Pharmacist Pharmacy 05/31/21 Boring And Filling Machine Operator Relationship Specialty Start Date End Date Guanakito Reno MD [address] [place] [address] PCP - General Family Medicine 05/24/18 13, Pharmacist [address] [place] [address] Pharmacist Pharmacy 05/31/21 Boring And Filling Machine Operator Relationship Specialty Start Date End Date Guanakito Reno MD [address] [place] [address] PCP - General Family Medicine 05/24/18 13, Pharmacist [address] [place] [address] Pharmacist Pharmacy 05/31/21 Boring And Filling Machine Operator Relationship Specialty Start Date End Date Guanakito Reno MD [address] [place] [address] PCP - General Family Medicine 05/24/18 13, Pharmacist [address] [place] [address] Pharmacist Pharmacy 05/31/21 Boring And Filling Machine Operator Relationship Specialty Start Date End Date Guanakito Reno MD [address] [place] [address] PCP - General Family Medicine 05/24/18 13, Pharmacist [address] [place] [address] Pharmacist Pharmacy 05/31/21 Boring And Filling Machine Operator Relationship Specialty Start Date End Date Guanakito Reno MD [address] [place] [address] PCP - General Family Medicine 05/24/18 13, Pharmacist [address] [place] [address] Pharmacist Pharmacy 05/31/21 Boring And Filling Machine Operator Relationship Specialty Start Date End Date Guanakito Reno MD [address] [place] [address] PCP - General Family Medicine 05/24/18 13, Pharmacist [address] [place] [address] Pharmacist Pharmacy 05/31/21 Boring And Filling Machine Operator Relationship Specialty Start Date End Date Guanakito Reno MD [address] [place] [address] PCP - General Family Medicine 05/24/18 13, Pharmacist [address] [place] [address] Pharmacist Pharmacy 05/31/21 Boring And Filling Machine Operator Relationship Specialty Start Date End Date Guanakito Reno MD [address] [place] [address] PCP - General Family Medicine 05/24/18 13, Pharmacist [address] [place] [address] Pharmacist Pharmacy 05/31/21 Boring And Filling Machine Operator Relationship Specialty Start Date End Date Guanakito Reno MD [address] [place] [address] PCP - General Family Medicine 05/24/18 13, Pharmacist [address] [place] [address] Pharmacist Pharmacy 05/31/21 Boring And Filling Machine Operator Relationship Specialty Start Date End Date Guanakito Reno MD [address] [place] [address] PCP - General Family Medicine 05/24/18 13, Pharmacist [address] [place] [address] Pharmacist Pharmacy 05/31/21 Corrina Lennon APRN.ELECTRICIAN SHIP [address] [place] [address] Biomedical Equipment Technician Family Medicine 09/23/24 Carolina Landeros APRN.ELECTRICIAN SHIP [address] [facility] [place] [address] Biomedical Equipment Technician [facility] 09/23/24 Boring And Filling Machine Operator Relationship Specialty Start Date End Date Guanakito Reno MD [address] [facility] [place] [address] PCP - General Family Medicine 05/24/18 13, Pharmacist [address] [place] [address] Pharmacist Pharmacy 05/31/21 Corrina Lennon APRN.ELECTRICIAN SHIP [address] [place] [address] [facility] 09/23/24 Carolina Landeros APRN.ELECTRICIAN SHIP [address] [facility] [place] [address] [facility] 09/23/24 Boring And Filling Machine Operator Relationship Specialty Start Date End Date Guanakito Reno MD [address] [facility] [place] [address] PCP - General Family Medicine 05/24/18 13, Pharmacist [address] [place] [address] Pharmacist Pharmacy 05/31/21 Corrina Lennon APRN.ELECTRICIAN SHIP [address] [facility] [place] [address] Biomedical Equipment Technician Family Medicine 09/23/24 Carolina Landeros APRN.ELECTRICIAN SHIP [address] [facility] [place] [address] Biomedical Equipment Technician Family Medicine 09/23/24 Boring And Filling Machine Operator Relationship Specialty Start Date End Date Guanakito Reno MD [address] [place] [address] PCP - General Family Medicine 05/24/18 13, Pharmacist [address] [place] [address] Pharmacist Pharmacy 05/31/21 Corrina Lennon STONE BANKER.ELECTRICIAN SHIP [address] [place] [address] Biomedical Equipment Technician Family Medicine 09/23/24 Carolina Landeros STONE BANKER.ELECTRICIAN SHIP [address] [place] [address] [facility] 09/23/24 Boring And Filling Machine Operator Relationship Specialty Start Date End Date Guanakito Reno MD [address] [place] [address] PCP - General Family Medicine 05/24/18 13, Pharmacist [address] [place] [address] Pharmacist Pharmacy 05/31/21 Corrina Lennon STONE BANKER.ELECTRICIAN SHIP [address] [place] [address] Biomedical Equipment Technician Family Medicine 09/23/24 Carolina Landeros STONE BANKER.ELECTRICIAN SHIP [address] [place] [address] Biomedical Equipment Technician Family Medicine 09/23/24 Boring And Filling Machine Operator Relationship Specialty Start Date End Date Guanakito Reno MD [address] [place] [address] PCP - General Family Medicine 05/24/18 13, Pharmacist [address] [facility] [place] [address] Pharmacist Pharmacy 05/31/21 Corrina Lennon APRN.ELECTRICIAN SHIP [address] [facility] [place] [address] Biomedical Equipment Technician Family Medicine 09/23/24 Carolina Landeros APRN.ELECTRICIAN SHIP [address] [facility] [place] [address] Biomedical Equipment Technician Family Medicine 09/23/24 Boring And Filling Machine Operator Relationship Specialty Start Date End Date Guanakito Reno MD [address] [place] [address] PCP - General Family Medicine 05/24/18 13, Pharmacist [address] [facility] [place] [address] Pharmacist Pharmacy 05/31/21 Corrina Lennon APRN.ELECTRICIAN SHIP [address] [facility] [place] [address] Biomedical Equipment Technician Family Medicine 09/23/24 Carolina Landeros STONE BANKER.ELECTRICIAN SHIP [address] [facility] [place] [address] [facility] 09/23/24 Boring And Filling Machine Operator Relationship Specialty Start Date End Date Guanakito Reno MD [address] [facility] [place] [address] PCP - General Family Medicine 05/24/18 13, Pharmacist [address] [facility] [place] [address] Pharmacist Pharmacy 05/31/21 Corrina Lennon APRN.ELECTRICIAN SHIP [address] [facility] [place] [address] Biomedical Equipment Technician [facility] 09/23/24 Carolina Landeros APRN.ELECTRICIAN SHIP [address] [place] [address] Biomedical Equipment Technician [facility] 09/23/24 Boring And Filling Machine Operator Relationship Specialty Start Date End Date Guanakito Reno MD [address] [place] [address] PCP - General Family Medicine 05/24/18 13, Pharmacist [address] [place] [address] Pharmacist Pharmacy 05/31/21 Corrina Lennon APRN.ELECTRICIAN SHIP [address] [place] [address] [facility] 09/23/24 Carolina Landeros APRN.ELECTRICIAN SHIP [address] [place] [address] [facility] 09/23/24 Boring And Filling Machine Operator Relationship Specialty Start Date End Date Guanakito Reno MD [address] [place] [address] PCP - General Family Medicine 05/24/18 13, Pharmacist [address] [place] [address] Pharmacist Pharmacy 05/31/21 Corrina Lennon APRN.ELECTRICIAN SHIP [address] [place] [address] Biomedical Equipment Technician [facility] 09/23/24 Carolina Landeros APRN.ELECTRICIAN SHIP [address] [place] [address] Biomedical Equipment Technician Family Medicine 09/23/24 Boring And Filling Machine Operator Relationship Specialty Start Date End Date Guanakito Reno MD [address] [facility] [place] [address] PCP - General Family Medicine 05/24/18 13, Pharmacist [address] [place] [address] Pharmacist Pharmacy 05/31/21 Corrina Lennon, STONE BANKER.ELECTRICIAN SHIP [address] [place] [address] Biomedical Equipment Technician [facility] Medicine 09/23/24 Carolina Landeros STONE BANKER.ELECTRICIAN SHIP [address] [place] [address] [facility] 09/23/24 Boring And Filling Machine Operator Relationship Specialty Start Date End Date Guanakito Reno MD [address] [place] [address] PCP - General Family Medicine 05/24/18 13, Pharmacist [address] [place] [address] Pharmacist Pharmacy 05/31/21 Corrina Lennon STONE BANKER.ELECTRICIAN SHIP [address] [place] [address] Biomedical Equipment Technician [facility] Medicine 09/23/24 Carolina Landeros STONE BANKER.ELECTRICIAN SHIP [address] [place] [address] Biomedical Equipment Technician Family Medicine 09/23/24 Team Status: Active Member [...] BE BASED ON THE PRIMARY CLINICAL RECORDS. Join The [employer] [facility]. provides no warranty or guarantee of the accuracy or completeness of information in this document.
[2025-08-26 08:39] LABS: Prothrombin Time (Protime)PT. 19.6 SECONDS (11.7-14.9)
== END ==
LOC: OLS.SW 05:00
PROVIDERS: PCP Family Medicine; Visit Provider Family Medicine
DX: I48.91 Unspecified atrial fibrillation (principal)
CPT/HCPCS: 36415; 85610

== ENCOUNTER → 2025-09-02 | Outpatient (REF) | payer MEDICARE, SELFPAY ==
--- OUTSIDE RECORDS SUMMARY | 2025-09-02 03:55 | XMS RPT_ITS | CCD ---
Author Organization [facility] Care Team Providers Care Assembly Adjuster Name Role Phone VIPIN CARDONA Unavailable Unavailable [...] Guanakito Reno MD Primary Care Provider Haagen CORPORATE STRATEGY ANALYST.BLADE CHANGER, Corrina Unavailable Suppan CORPORATE STRATEGY ANALYST.BLADE CHANGER, Carolina A Unavailable [phone] Suppan CORPORATE STRATEGY ANALYST.BLADE CHANGER, Carolina A Unavailable Dr. Guanakito Reno MD [...] ilable SHADIA, GUANAKITO J Primary Care Unavailable [place], Guanakito Referring Unavailable David Navarrete Attending Unavailable Shadia, Guanakito Primary Care Unavailable Burt Zamora Attending Unavailable [place], Guanakito Primary Care Unavailable Bianka Olivera Attending [...] Primary Care Unavailable Josafat Oliva Referring Unavailable [place], Guanakito Primary Care Unavailable Josafat Oliva Attending Unavailable Josafat Oliva Attending Unavailable [place], Guanakito Primary Care Unavailable Josafat Oliva Attending Unavailable Shadia, Guanakito Primary Care Unavailable [place], Guanakito Primary Care Unavailable Josafat Oliva Attending Unavailable Josafat Oliva Attending Unavailable Shadia, Guanakito Primary Care Unavailable [place], Guanakito Primary Care Unavailable Josafat Oliva Attending Unavailable Josafat Oliva Attending Unavailable Shadia, Guanakito Primary Care Unavailable Josafat Oliva Attending Unavailable [place], Guanakito Primary Care Unavailable Josafat Oliva Referring Unavailable Josafat Oliva Attending Unavailable [place], Guanakito Primary Care Unavailable Josafat Oliva Attending Unavailable [place], Guanakito Primary Care Unavailable Josafat Oliva Attending Unavailable Shadia, Guanakito Primary Care Unavailable Josafat Oliva Referring Unavailable Josafat Oliva Attending Unavailable [place], Guanakito Primary Care Unavailable Josafat Oliva Attending Unavailable Shadia, Guanakito Primary Care Unavailable SimonJosafat Barahona Attending Unavailable Shadia, Guanakito Primary Care Unavailable Josafat Oliva Attending Unavailable [place], Guanakito Primary Care Unavailable Shadia, Guanakito Referring Unavailable Mollison, Josafat Attending Unavailable [place], Guanakito Primary Care Unavailable Allergies Allergy Classification Reported Allergen(s) Allergy Type Date of Onset Reaction(s) Facility (4 sources) Environmental Allergies: Uncoded; Translations: [Environmental Allergies: Uncoded] Allergy to substance [facility] Medications Current Medications Medication Drug Class(es) [...] hydrochloride 10 mg oral tablet (20 sources) W-kfzpbt-F-aspart ate Receptor Antagonist Start: 08-21-2019 End: 01-21-2025 [...] 4 11-11-2016 Chronic Other aftercare (2 sources) 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 [place], [place], [id number] PT Coag (PPP) [Time] 19.6 s High 11.7-14.9 [facility] Comment on above: Order Comment: 317.1 Performed By: #### L 300.3900 #### [facility] [address] [place], [address] Prothrombin Time w/INRon INR Coag (PPP) [Relative time] 1.7 {INR} Normal [facility] Comment on above: Order Comment: 317.1 Performed By: #### L 300.3900 #### [facility] [address] [place], [address] PT Coag (PPP) [Time] 20.1 s High 11.7-14.9 [facility] Comment on above: Order Comment: 317.1 Performed By: #### L 300.3900 #### [facility] [address] [place], [place], [address] Protime w/INR Fingerstickon 08-14-2025 INR Coag (PPP) [Relative time] 1.9 {INR} Normal [facility] Comment on above: Result Comment: Crit ical Value > 4.0 Performed By: #### L 300.3900 #### [facility] [address] [place], [place], [address] Protime Coagsen 21.4 SEC High 11.7-14.9 [facility] Comment on above: Performed By: #### L 300.3900 #### [facility] [address] [place], [place], [address] CNPNon [facility] CAL MITCHELL ([id number]) 1945 M Date Time Provider Department 08/11/25 LAURA IRAHETA During your visit today, we recorded the following information about you: Jimmy Kwon 08/11/2025 10:52 AM Signed Annual f/u - Bilateral carotid artery stenosis, hx of carotid endarterectomy - US PRIOR Spoke w/daughter first - stated he was now a resident of [facility]. Updated pt's demographics with new info/ph numbers. Transferred to and left detailed VM with [facility] acute coordinator, Yanci (schedule's resident's appts) to schedule [...] stenosis of unspecified carotid a*10/25/2013 03/26/2024 Frequency [[id number]] 02/11/2016 03/26/2024 BPH (benign prostatic hypertrophy) with [...] Hypertensive kidney disease with stage 3 chroni*01/29/2020 penitentiary (current) use of anticoagulants [Z79.*02/04/2020 Dementia, vascular, [...] Encounter Status:Closed by JIMMY KWON on 08/11/25 [facility] CNPIndu 08-01-20[facility] -------- CAL MITCHELL ([id number]) 1945 M Date Time Provider Department 08/01/25 GUANAKITO [facility] During your visit today, we recorded the following information about you: Olivia Heredia, RN 08/01/2025 10:33 AM Signed Patient's son Gustavo calling in asking for advise from Dr. Reno, for patient. Gustavo states patient is now receiving [facility] care at [facility] and his care is being [...] 3 years, if needed? Please advise sonGustavo. 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 Normal [facility] Prothrombin Time w/INRon INR Coag (PPP) [Relative time] 2.0 {INR} Normal [facility] Comment on above: Order Comment: 317.1 Performed By: #### L 300.3900 #### [facility] [address] [place], [address] PT Coag (PPP) [Time] 22.7 s High 11.7-14.9 [facility] Comment on above: Order Comment: 317.1 Performed By: #### L 300.3900 #### [facility] [address] [place], [address] Protime w/INR Fingerstickon 07-17-2025 INR Coag (PPP) [Relative time] 2.0 {INR} Normal [facility] Comment on above: Result Comment: Crit ical Value > 4.0 Performed By: #### L 300.3900 #### [facility] [address] [place], [address] Protime Coagsen 22.3 SEC High 11.7-14.9 [facility] Comment on above: Performed By: #### L 300.3900 #### [facility] [address] [place], [address] Prothrombin Time w/INRon INR Coag (PPP) [Relative time] 2.0 {INR} Normal [facility] Comment on above: Order Comment: 317.1 Performed By: #### L 300.3900 #### [facility] [address] [place], [address] PT Coag (PPP) [Time] 22.8 s High 11.7-14.9 [facility] Comment on above: Order Comment: 317.1 Performed By: #### L 300.3900 #### [facility] [address] [place], [address] Prothrombin Time w/INRon INR Coag (PPP) [Relative time] 2.1 {INR} Normal [facility] Comment on above: Performed By: #### L 300.3900 #### [facility] [address] [place], [address] PT Coag (PPP) [Time] 24.2 s High 11.7-14.9 [facility] Comment on above: Performed By: #### L 300.3900 #### [facility] [address] [place], [address] Protime w/INR Fingerstickon 06-17-2025 INR Coag (PPP) [Relative time] 2.1 {INR} Normal [facility] Comment on above: Result Comment: Crit ical Value > 4.0 Performed By: #### L 9200.0000 #### [facility] [address] [place], [address] Protime Coagsen 22.8 SEC High 11.7-14.9 [facility] Comment on above: Performed By: #### L 9200.0000 #### [facility] [address] [place], [address] Prothrombin Time w/INRon INR Coag (PPP) [Relative time] 1.9 {INR} Normal [facility] Comment on above: Order Comment: 317.1 Performed By: #### L 300.3900 #### [facility] [address] [place], [address] PT Coag (PPP) [Time] 22.4 s High 11.7-14.9 [facility] Comment on above: Order Comment: 317.1 Performed By: #### L 300.3900 #### [facility] [address] [place], [address] Prothrombin Time w/INRon INR Normal [facility] Comment on above: Result Comment: ANTONINO JONES SEE [id number] Performed By: #### L 300.3900 #### [facility] [address] [place], [address] PROTIME Normal 11.7-14.9 [facility] Comment on above: Result Comment: ANTONINO JONES SEE [id number]:[id number] Performed By: #### L 300.3900 #### [facility] [address] [place], [address] International normalized rat io (INR) calculationOrdered By: Josafat Simon on 06-03-2025 INR Coag (Bld) [Relative time] 3.0 {INR} [facility] Prothrombin Time w/INRon INR Coag (PPP) [Relative time] 3.0 {INR} Normal [facility] Comment on above: Order Comment: 317.1 Performed By: #### L 300.3900 #### [facility] [address] [place], [address] PT Coag (PPP) [Time] 31.4 s High 11.7-14.9 [facility] Comment on above: Order Comment: 317.1 Performed By: #### L 300.3900 #### [facility] [address] [place], [address] Prothrombin timeOrdered By: Josafat Simon on 06-03-2025 PT Coag (PPP) [Time] 31.4 s High 11.7-14.9 [facility] International normalized rat io (INR) measurement by fingerstickOrdered By: Josafat Simon on 05-27-2025 INR Coag (BldC) [Relative time] 2.3 [facility] Comment on above: Critical Value > 4.0 Protime w/INR Fingerstickon 05-27-2025 INR Coag (PPP) [Relative time] 2.3 {INR} Normal [facility] Comment on above: Result Comment: Crit ical Value > 4.0 Performed By: #### L 300.3900 #### [facility] [place], [address] Protime Coagsen 24.6 SEC High 11.7-14.9 [facility] Comment on above: Performed By: #### L 300.3900 #### [facility] [place], [address] Whole blood prothrombin time Ordered By: Josafat Simon on 05-27-2025 PT Coag (Bld) [Time] 24.6 s High 11.7-14.9 [facility] International normalized rat io (INR) measurement by fingerstickOrdered By: Josafat Simon on 05-20-2025 INR Coag (BldC) [Relative time] 2.7 [facility] Comment on above: Critical Value > 4.0 Protime w/INR Fingerstickon 05-20-2025 INR Coag (PPP) [Relative time] 2.7 {INR} Normal [facility] Comment on above: Result Comment: Crit ical Value > 4.0 Performed By: #### L 300.3900 #### [facility] [address] [facility] [address] Protime Coagsen 28.2 SEC High 11.7-14.9 [facility] Comment on above: Performed By: #### L 300.3900 #### [facility] [address] [place], [address] Whole blood prothrombin time Ordered By: Josafat Simon on 05-20-2025 PT Coag (Bld) [Time] 28.2 s High 11.7-14.9 [facility] International normalized rat io (INR) calculationOrdered By: Josafat Simon on 05-15-2025 INR Coag (Bld) [Relative time] 2.3 {INR} [facility] Prothrombin Time w/INRon INR Coag (PPP) [Relative time] 2.3 {INR} Normal [facility] Comment on above: Order Comment: 317.1 Performed By: #### L 300.3900 #### [facility] [place], [address] Prothrombin timeOrdered By: Josafat Simon on 05-15-2025 PT Coag (PPP) [Time] 25.3 s High 11.7-14.9 [facility] Comment on above: Order Comment: 317.1 Performed By: #### L 300.3900 #### [facility] [address] [place], [address] International normalized rat io (INR) calculationOrdered By: Josafat Simon on 05-13-2025 INR Coag (Bld) [Relative time] 1.7 {INR} [facility] Prothrombin Time w/INRon INR Coag (PPP) [Relative time] 1.7 {INR} Normal [facility] Comment on above: Order Comment: 317.1 Performed By: #### L 300.3900 #### [facility] [address] [place], [address] PT Coag (PPP) [Time] 20.6 s High 11.7-14.9 [facility] Comment on above: Order Comment: 317.1 Performed By: #### L 300.3900 #### [facility] [address] [place], [address] Prothrombin timeOrdered By: Josafat Simon on 05-13-2025 PT Coag (PPP) [Time] 20.6 s High 11.7-14.9 [facility] International normalized rat io (INR) calculationOrdered By: Josafat Simon on 05-08-2025 INR Coag (Bld) [Relative time] 3.2 {INR} [facility] Prothrombin Time w/INRon INR Coag (PPP) [Relative time] 3.2 {INR} Normal [facility] Comment on above: Order Comment: 317.1 Performed By: #### L 300.3900 #### [facility] [address] [place], [address] PT Coag (PPP) [Time] 33.1 s High 11.7-14.9 [facility] Comment on above: Order Comment: 317.1 Performed By: #### L 300.3900 #### [facility] [address] [place], [address] Prothrombin timeOrdered By: Josafat Simon on 05-08-2025 PT Coag (PPP) [Time] 33.1 s High 11.7-14.9 [facility] International normalized rat io (INR) calculationOrdered By: Josafat Simon on 05-06-2025 INR Coag (Bld) [Relative time] 4.1 {INR} High [facility] Comment on above: CRITICAL VALUE ZABALA D TO IRMA SOLOMON (OLS.SW)05/06/25 0801 Travis OrtizRESULTS READ BACK BY SAME. Prothrombin Time w/INRon INR Coag (PPP) [Relative time] 4.1 {INR} Invalid Interpretation Code [facility] Comment on above: Order Comment: FLORES RSTICK CONFIRMATION Result Comment: CRIT ICAL VALUE CALLED TO IRMA SOLOMON (OLS.SW) 05/06/25 0801 Travis Yost. RESULTS READ BACK BY SAME. Performed By: #### L 300.3900 #### [facility] [address] [place], [address] PT Coag (PPP) [Time] 40.8 s High 11.7-14.9 [facility] Comment on above: Order Comment: FINGE RSTICK CONFIRMATION Performed By: #### L 300.3900 #### [facility] [address] [place], [address] Prothrombin timeOrdered By: Josafat Simon on 05-06-2025 PT Coag (PPP) [Time] 40.8 s High 11.7-14.9 [facility] Protime w/INR Fingerstickon 05-06-2025 INR Coag (PPP) [Relative time] 4.3 {INR} Invalid Interpretation Code [facility] Comment on above: Result Comment: Crit ical Value > 4.0 Performed By: #### L 300.3900 #### [facility] [address] [place], [address] Protime Coagsen 42.3 SEC High 11.7-14.9 [facility] Comment on above: Performed By: #### L 300.3900 #### [facility] [address] [place], [address] Whole blood prothrombin time Ordered By: Josafat Simon on 05-06-2025 PT Coag (Bld) [Time] 42.3 s High 11.7-14.9 [facility] Orthopedic Visit Reporton Orthopedic Visit Report [facility] [address] [place] [address] [address] [place], [place] [address] OFFICE VISIT Date of Service: 05/02/25 MR#: [id number] Acct: [id number] Name: CAL MITCHELL Rep #: [id number] : 1945 Provider: Dr. David Borru so, DO Age/Sex: 79/M Location: [facility] [place] Status: Signed Intake Vital Signs 03/07/25 12:57 [...] History acetaminophen 650 mg rectal 650 mg ID Q4H PRN 05/02/25 5 History suppository aluminum-mag hydroxide-simethicone 30 ml PO Q4H PRN 05/02/25 History 200 mg-200 mg-20 mg/5 mL oral susp (Antacid) bisacodyl 10 mg rectal suppository 10 mg ID QDAY PRN 05/02/2505/02 History (Dulcolax (bisacodyl)) dextrose [...] hr sodium phosphates 19 gram-7 118 ml ID ONCE PRN 05/02/25 History gram/118 mL enema [...] is here today with his son and oktdgfzl-sz-odd. Usually ambulates with a walker or a cane. Had a fall. Was mainly complaining about pain to the upper extremity was seen in a peripheral hospital referred here given a sling they found approximately wrist fracture on the right side. The patient does not speak very much but he converses overall well he is lqkgi-xpie-pvwclnog fairly stoic. Plan:79-year-old man with a (more content not included)... Normal [facility] Shoulder min 2 Viewson 05-02 Shoulder min 2 Views [facility] Services [address] [place], [place] [address] Shoulder min 2 Views MR#: [id number] Acct: [id number] Name: CAL MITCHELL Rep #: [id number] : 1945 M 79 From: Magdalena Lala PCP: Dr. Guanakito Reno MD Status: DEP AMB Study: Shoulder min 2 Views Date of Exam: 05/02/25 Exam# [id number] Ordering Dr: David Navarrete DO PROCEDURE: SHOULDER [...] changes involving the glenohumeral joint. Reading Location: [id number] CC: Dr. David Navarrete DO; Dr. Guanakito Reno MD Director Of Cardiac Rehabilitation: Signed Normal [facility] International normalized rat io (INR) calculationOrdered By: Josafat Simon on 05-01-2025 INR Coag (Bld) [Relative time] 3.2 {INR} [facility] Prothrombin Time w/INRon INR Coag (PPP) [Relative time] 3.2 {INR} Normal [facility] Comment on above: Performed By: #### L 300.3900 #### [facility] [address] [facility] [place], [place], [phone] ([phone] PT Coag (PPP) [Time] 33.6 s High 11.7-14.9 [facility] Comment on above: Performed By: #### L 300.3900 #### [facility] [address] [place], [place], [phone] Prothrombin timeOrdered By: Josafat Simon on 05-01-2025 PT Coag (PPP) [Time] 33.6 s High 11.7-14.9 [facility] International normalized rat io (INR) calculationOrdered By: Josafat Simon on 04-29-2025 INR Coag (Bld) [Relative time] 3.1 {INR} [facility] Prothrombin Time w/INRon INR Coag (PPP) [Relative time] 3.1 {INR} Normal [facility] Comment on above: Performed By: #### L 300.3900 #### [facility] [address] [place], [place], [phone] ([phone] Prothrombin timeOrdered By: Josafat Simon on 04-29-2025 PT Coag (PPP) [Time] 32.2 s High 11.7-14.9 [facility] Comment on above: Performed By: #### L 300.3900 #### [facility] [address] [place], [address] International normalized rat io (INR) measurement by fingerstickOrdered By: Josafat Simon on 04-24-2025 INR Coag (BldC) [Relative time] 3.5 [facility] Comment on above: Critical Value > 4.0 Protime w/INR Fingerstickon 04-24-2025 INR Coag (PPP) [Relative time] 3.5 {INR} Normal [facility] Comment on above: Result Comment: Crit ical Value > 4.0 Performed By: #### L 300.3900 #### [facility] [address] [place], [address] Protime Coagsen 35.4 SEC High 11.7-14.9 [facility] Comment on above: Performed By: #### L 300.3900 #### [facility] [address] [place], [address] Whole blood prothrombin time Ordered By: Josafat Simon on 04-24-2025 PT Coag (Bld) [Time] 35.4 s High 11.7-14.9 [facility] Anion gap in Serum or Plasma Ordered By: Bianka Gonzalez on 04-17-2025 Anion gap [Moles/Vol] 10 mmol/L - [facility] BUN/creatinine ratioOrdered By: Bianka Gonzalez on 04-17-2025 Urea nitrogen/Creatinine [Mass ratio] 21.1 mg/mg High - [facility] Basic Metabolic Profile (BMP )on 04-17-2025 BUN/CRE 21.1 RATIO High 08-04 [facility] Comment on above: Order Comment: 213 Performed By: #### L 300.3900, L100.0500, L500.2500 #### [facility] [address] [place], [address] Calcium [Mass/Vol] 8.2 mg/dL Normal 7.6-11.0 [facility] Comment on above: Order Comment: 213 Performed By: #### L 300.3900, L100.0500, L500.2500 #### [facility] [address] [place], [address] Chloride [Moles/Vol] 111 mmol/L High 98-108 [facility] Comment on above: Order Comment: 213 Performed By: #### L 300.3900, L100.0500, L500.2500 #### [facility] [address] [place], [address] CO2 [Moles/Vol] 17.2 mmol/L Low 21.0-32.0 [facility] Comment on above: Order Comment: 213 Performed By: #### L 300.3900, L100.0500, L500.2500 #### [facility] [address] [place], [address] Creatinine [Mass/Vol] 2.45 mg/dL High 0.70-1.20 [facility] Comment on above: Order Comment: 213 Performed By: #### L 300.3900, L100.0500, L500.2500 #### [facility] [address] [place], [address] GAP 10 Normal 5-15 [facility] Comment on above: Order Comment: 213 Performed By: #### L 300.3900, L100.0500, L500.2500 #### [facility] [address] [place], [address] GFR/1.73 sq M.predicted among non-blacks MDRD (S/P/Bld) [Vol rate/Area] 26 mL/min/{1.73_m2} Low >60 [facility] Comment on above: Order Comment: 213 Result Comment: mL/m in/1.73m2 CKD-EPI Creatinine Equation (2020) Performed By: #### L 300.3900, L100.0500, L500.2500 #### [facility] [address] [place], [address] Glucose [Mass/Vol] 137 mg/dL High 70-99 [facility] Comment on above: Order Comment: 213 Performed By: #### L 300.3900, L100.0500, L500.2500 #### [facility] [address] [place], [address] Potassium [Moles/Vol] 4.9 mmol/L Normal 3.3-5.1 [facility] Comment on above: Order Comment: 213 Performed By: #### L 300.3900, L100.0500, L500.2500 #### [facility] [address] [place], [address] Sodium [Moles/Vol] 139 mmol/L Normal 133-145 [facility] Comment on above: Order Comment: 213 Performed By: #### L 300.3900, L100.0500, L500.2500 #### [facility] [address] [place], [address] Urea nitrogen [Mass/Vol] 52 mg/dL High 4-19 [facility] Comment on above: Order Comment: 213 Performed By: #### L 300.3900, L100.0500, L500.2500 #### [facility] [address] [place], [address] CBC-Complete Blood Cnt No Di ffon 04-17-2025 Erythrocyte distribution width (RBC) [Ratio] 16.4 % High 11.6-14.6 [facility] Comment on above: Order Comment: 213 Performed By: #### L 300.3900, L100.0500, L500.2500 #### [facility] [address] [place], [address] Hematocrit (Bld) [Volume fraction] 35.2 % Low 40-54 [facility] Comment on above: Order Comment: 213 Performed By: #### L 300.3900, L100.0500, L500.2500 #### [facility] [address] [place], [address] Hemoglobin (Bld) [Mass/Vol] 10.6 g/dL Low 13.0-16.5 [facility] Comment on above: Order Comment: 213 Performed By: #### L 300.3900, L100.0500, L500.2500 #### [facility] [address] [place], [address] MCH (RBC) [Entitic mass] 29.2 pg Normal 27.0-32.0 [facility] Comment on above: Order Comment: 213 Performed By: #### L 300.3900, L100.0500, L500.2500 #### [facility] [address] [place], [address] MCHC (RBC) [Mass/Vol] 30.1 g/dL Low 32-36 [facility] Comment on above: Order Comment: 213 Performed By: #### L 300.3900, L100.0500, L500.2500 #### [facility] [address] [place], [address] MCV (RBC) [Entitic vol] 97.0 fL High 80-94 [facility] Comment on above: Order Comment: 213 Performed By: #### L 300.3900, L100.0500, L500.2500 #### [facility] [address] [place], [address] Platelet mean volume (Bld) [Entitic vol] 10.0 fL Normal 6.2-12.0 [facility] Comment on above: Order Comment: 213 Performed By: #### L 300.3900, L100.0500, L500.2500 #### [facility] [address] [place], [address] Platelets (Bld) [#/Vol] 161 10*3/uL Normal 150-450 [facility] Comment on above: Order Comment: 213 Performed By: #### L 300.3900, L100.0500, L500.2500 #### [facility] [address] [place], [address] RBC (Bld) [#/Vol] 3.63 10*6/uL Low 4.6-6.2 [facility] Comment on above: Order Comment: 213 Performed By: #### L 300.3900, L100.0500, L500.2500 #### [facility] [address] [place], [address] RDW SD 58.6 fl High 35.1-43.9 [facility] Comment on above: Order Comment: 213 Performed By: #### L 300.3900, L100.0500, L500.2500 #### [facility] [address] [place], [address] WBC (Bld) [#/Vol] 7.2 10*3/uL Normal 4.4-11.0 [facility] Comment on above: Order Comment: 213 Performed By: #### L 300.3900, L100.0500, L500.2500 #### [facility] [address] [place], [address] Carbon dioxide, total [Moles /volume] in Central venous bloodOrdered By: Bianka Gonzalez on 04-17-2025 CO2 [Moles/Vol] 17.2 mmol/L Low 21.0-32.0 [facility] Chloride assayOrdered By: Josr Gonzalez on 04-17-2025 Chloride [Moles/Vol] 111 mmol/L High 98-108 [facility] Erythrocyte distribution wid th ratioOrdered By: Bianka Gonzalez on 04-17-2025 Erythrocyte distribution width (RBC) [Ratio] 16.4 % High 11.6-14.6 [facility] Erythrocyte distribution wid th standard deviationOrdered By: Bianka Gonzalez on 04-17-2025 Erythrocyte distribution width (RBC) [Ratio] 58.6 fl High 35.1-43.9 [facility] Glomerular filtration rate ( GFR) estimation/1.73 sq m using serum, plasma, or whole bOrdered By: Bianka Gonzalez on 04-17-2025 GFR/1.73 sq M.predicted among non-blacks MDRD (S/P/Bld) [Vol rate/Area] 26 mL/min/{1.73_m2} Low >60 [facility] Comment on above: mL/min/1.73m2 CKD-EP I Creatinine Equation (2020) Hematocrit Auto (Bld) [Volum e fraction]Ordered By: Bianka Gonzalez on 04-17-2025 Hematocrit (Bld) [Volume fraction] 35.2 % Low 40-54 [facility] Hemoglobin measurementOrdere d By: Bianka Gonzalez on 04-17-2025 Hemoglobin (Bld) [Mass/Vol] 10.6 g/dL Low 13.0-16.5 [facility] International normalized rat io (INR) calculationOrdered By: Bianka Gonzalez on 04-17-2025 INR Coag (Bld) [Relative time] 2.7 {INR} [facility] MCV (mean corpuscular volume ) determinationOrdered By: Bianka Gonzalez on 04-17-2025 MCV (RBC) [Entitic vol] 97.0 fL High 80-94 [facility] Mean corpuscular hemoglobin (MCH) determinationOrdered By: Bianka Gonzalez on 04-17-2025 MCH (RBC) [Entitic mass] 29.2 pg 27.0-32.0 [facility] Mean corpuscular hemoglobin concentration (MCHC) determinationOrdered By: Bianka Gonzalez on 04-17-2025 MCHC (RBC) [Mass/Vol] 30.1 g/dL Low 32-36 [facility] Mean platelet volume determi nationOrdered By: Bianka Gonzalez on 04-17-2025 Platelet mean volume (Bld) [Entitic vol] 10.0 fL 6.2-12.0 [facility] Platelet countOrdered By: Josr Gonzalez on 04-17-2025 Platelets (Bld) [#/Vol] 161 10*3/uL 150-450 [facility] Potassium measurement (mass/ volume)Ordered By: Bianka Gonzalez on 04-17-2025 Potassium (Unsp spec) [Mass/Vol] 4.9 mmol/L 3.3-5.1 [facility] Prothrombin Time w/INRon INR Coag (PPP) [Relative time] 2.7 {INR} Normal [facility] Comment on above: Order Comment: 213 Performed By: #### L 300.3900, L100.0500, L500.2500 #### [facility] [address] [place], [address] PT Coag (PPP) [Time] 29.7 s High 11.7-14.9 [facility] Comment on above: Order Comment: 213 Performed By: #### L 300.3900, L100.0500, L500.2500 #### [facility] [address] [place], [address] Prothrombin timeOrdered By: Bianka Gonzalez on 04-17-2025 PT Coag (PPP) [Time] 29.7 s High 11.7-14.9 [facility] RBC Auto (Bld) [#/Vol]Ordere d By: Bianka Gonzalez on 04-17-2025 RBC (Bld) [#/Vol] 3.63 10*6/uL Low 4.6-6.2 [facility] Serum creatinine measurement (mass/volume)Ordered By: Bianka Gonzalez on 04-17-2025 Creatinine [Mass/Vol] 2.45 mg/dL High 0.70-1.20 [facility] Serum glucose measurement (m ass/volume)Ordered By: Bianka Gonzalez on 04-17-2025 Glucose [Mass/Vol] 137 mg/dL High 70-99 [facility] Serum or plasma calcium cornelius urement (mass/volume)Ordered By: Bianka Gonzalez on 04-17-2025 Calcium [Mass/Vol] 8.2 mg/dL 7.6-11.0 [facility] Serum or plasma urea nitroge n measurement (mass/volume)Ordered By: Bianka Gonzalez on 04-17-2025 Urea nitrogen [Mass/Vol] 52 mg/dL High 4-19 [facility] Sodium levelOrdered By: Venitakeiko rey Lisa on 04-17-2025 Sodium [Moles/Vol] 139 mmol/L 133-145 [facility] White blood cell (WBC) count Ordered By: Bianka Gonzalez on 04-17-2025 WBC (Bld) [#/Vol] 7.2 10*3/uL 4.4-11.0 [facility] CNPNon 04-15-2025 CNPN Telephone (PHAMTE) -------- CAL MITCHELL ([id number]) 1945 M Date Time Provider Department 04/15/25 [place] During your visit today, we recorded the following information about you: Twin Cole [facility] 04/15/2025 9:12 AM Signed [facility] Anticoagulation Clinic Anticoagulation Episode Summary Anticoagulation Care Providers Provider Role Specialty Phone number Guanakito Reno MD [facility] Family Medicine [phone] Cal Hageroll is a 79 year old [...] Pharmacy Anticoagulation Clinic Pharmacy [facility] Pager: [phone]. Twin Cole RPh 04/29/2025 8:54 AM Signed [...] on an injectable anticoagulant - No Twin Stuart Cole TwinStuart 05/06/2025 10:59 AM Signed Spoke to patient's daughter. Patient has moved to [facility]. His INRs are monitored there. Will discharge patient from [facility] Daniel ([facility])Ashley 05/06/2025 2:31 PM Signed Pharmacy Anticoagulation Clinic Discharge completed at this time. Patient may be re-referred, if deemed appropriate. Ashley Sanchez; Ubaldo ([facility]) [facility] Allergies As of Date: [...] guidelines link (more content not included)... [facility] CAL MITCHELL ([id number]) 1945 M Date Time Provider Department 04/14/25 [facility] During your visit today, we [...] Fully Assessed Reason for Visit: Patient Question [9937] Prescriptions as of 04/14/2025 - warfarin (COUMADIN) [...] Insulin: No - Lancets (ONE TOUCH DELICA) [facility] lancets Test blood sugar(s) one time daily. 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 [facility]-20[facility] -------- CAL MITCHELL ([id number]) 1945 M Date Time Provider Department 03/28/25 [facility] During your visit today, we recorded the following information about you: Niels Rodriges, BENJIE 03/28/2025 1:06 PM Signed Faxed recent ov notes to [employer] per daughter, January request. . January reports she talked to [facility] about patient going to live there and [facility] instructed her to have pcp office send an H AND P to them for review. 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 [Z79.*02/04/2020 Dementia, vascular, [...] Encounter Status:Closed by Niels RODRIGES on 03/28/25 [facility] Molly 03-24-2025 LUCIO Telephone (PHANVE) -------- CAL MITCHELL ([id number]) 1945 M Date Time Provider Department 03/24/25 ALEJANDRO MOLINA During your visit today, we recorded the following information about you: Alejandro Molina RPh 03/24/2025 10:57 AM Signed [facility] Pharmacy Anticoagulation Clinic Anticoagulation Episode Summary Anticoagulation Care Providers Provider Role Specialty Phone number Guanakito Reno MD [facility] [phone] Cal Mitchell is a 79 year old [...] instructed to call [facility] at [phone] with any questions or concerns. Alejandro Molina RPh Clinical Pharmacist, Pharmacy Anticoagulation Clinic Pharmacy Anticoagulation Clinic Pager: [phone] Alejandro Molina RPh 04/07/2025 3:31 PM Signed [...] diabetes mellitu (more content not included)... Normal [facility] Inital Evaluation (1) - PTon 03-24-2025 Inital Evaluation (1) - PT [facility] [address] [place] [address] [address] [place] [address] / REHABILITATION SERVICES INITIAL EVALUATION MR#: [id number] Acct: [id number] Name: CAL MITCHELL Rep #: [id number] : 1945 79 From: Rosa MCGRAWT Referring Dr.: Dr. Josafat García MD Status: R EG RCR Insurance: [facility] [id number] SELF PAY INSURANCE Patient's Visit Information Visit [...] PROM due to guarding. Strength: Scap: poor, cardiology tech: fair, no other motions tested due to [...] to be FAXED BACK to us at [phone] for Medicare purposes. For Medicare only, by signing this I certify the plan of care. Please let me know if there are questions or concerns regarding this plan of care. Physician Signature: Date: ____ 03/24/25 1256 CC: Dr. Josafat García MD; Dr. Guanakito Reno MD E (more content not included)... Normal [facility] Orthopedic Visit Reporton Orthopedic Visit Report [facility] [address] [place] [address] [address] [place] [address] OFFICE VISIT Date of Service: 03/07/25 MR#: [id number] Acct: [id number] Name: CAL MITCHELL Rep #: [id number] : 1945 Provider: Dr. Josafat murcia MD Age/Sex: 79/M Location: [facility] Status: Signed Intake Vital Signs 03/06/25 16:19 [...] you fallen in the past year?: Yes [facility] Medical History (Updated 03/07/25 @ 13:23 by [...] by me, Dr. Josafat García MD 03/07/25 0919. Part of today???s visit was documented by [ ], acting as scribe. CAL MITCHELL is a 79 year old M here today for R proximal humerus fracture. Patient fell 2 days ago. He lives at home. He is here today with his son and [id number]. Usually ambulates with a walker or a cane. Had a fall. Was mainly complaining about pain to the upper extremity was seen in a peripheral hospital referred here given a sling they found approximately wrist fracture on the right side. The patient does not speak very much but he converses overall well he is [id number] fairly stoic. Supplemental Info Proximal humerus fracture [...] a r (more content not included)... Normal [facility] CNOVon 03-06-2025 [facility] Office Visit (FAMPWS ) -------- PAULACAL Chanell ([id number]) 1945 M Date Time Provider Department 03/06/25 3:20 PM [facility] During your visit today, we recorded the following information about you: Pulse Blood pressure 68/minute 124/58 Carolina Landeros APRN.BLADE CHANGER 03/06/2025 4:30 PM Signed This is a [...] and 9-10/10 with movement. - Currently taking Perry for pain management. - Denies pain elsewhere [...] 250.00. Insulin: No Lancets (ONE TOUCH DELICA) [facility] lancets Test blood sugar(s) one time daily. [...] SYSTEMS Mu (more content not included)... Normal [facility] ED NOTEon 03-06-2025 ED NOTE HNO ID: [id number] Author: CHITTENDEN, JACK, RN Service: ? Author Type: Registered Nurse Type: ED Notes Filed: 03/06/2025 00:19 Note Text: Provided meds. Placed in sling. Assisted to bathroom and back Normal [facility] ED PROV NOTEon 03-06-2025 ED PROV NOTE HNO ID: [id number] Author: KEDAR HERNANDEZ MD Service: Emergency Medicine [...] to p (more content not included)... Normal [facility] CT BRAIN WO IVCONon 03-05-20 CT BRAIN WO IVCON * * *Final Report* * * DATE OF EXAM: Mar 05 2025 11:55PM [facility] 0504 - CT BRAIN WO IVCON / [...] wall calcifications, including in the left-sided carotid. Chucking Machine Set Up Operator (topogram) images: Known (in correlation to earlier [...] vertebrae with counting from the craniocervical junction. Director Of Cardiac Rehabilitation: PSCB Transcribe Date/Time: Mar 06 2025 12:48A Dictated by : CAMELIA GROVES MD This examination was interpreted and the report reviewed and electronically signed by: CAMELIA GROVES MD on Mar 06 2025 1:08AM EST [id number] Normal [facility] CT CERVICAL SPINE WO IVCONon 03-05-2025 CT CERVICAL SPINE WO IVCON * * *Final Report* * * DATE OF EXAM: Mar 05 2025 11:55PM [facility] 0505 - CT CERVICAL SPINE WO IVCON [...] wall calcifications, including in the left-sided carotid. Chucking Machine Set Up Operator (topogram) images: Known (in correlation to earlier [...] vertebrae with counting from the craniocervical junction. Director Of Cardiac Rehabilitation: PSCB Transcribe Date/Time: Mar 06 2025 12:48A Dictated by : CAMELIA GROVES MD This examination was interpreted and the report reviewed and electronically signed by: CAMELIA GROVES MD on Mar 06 2025 1:08AM EST [id number] Normal [facility] ED NOTEon 03-05-2025 ED NOTE HNO ID: [id number] Author: JACK HOLCOMB, RN Service: ? Author Type: Registered Nurse Type: ED Notes Filed: 03/05/2025 23:05 Note Text: Assisted to bathroom and back Normal [facility] ED NOTE HNO ID: [id number] Author: JACK HOLCMOB, BENJIE Service: ? Author Type: Registered Nurse Type: ED Notes Filed: 03/05/2025 22:10 Note Text: Pt c/o fall with right shoulder injury when wheel chair turned over. Denies neck and head injury. [place], warm, dry. No apparent distress. Alert and oriented. Normal [facility] XR HUMERUS 2V AP/LAT RTon XR HUMERUS [...] separation. No dislocation of the glenohumeral joint. Director Of Cardiac Rehabilitation: PSCB Transcribe Date/Time: Mar 06 2025 12:37A Dictated by : LINNEA DIAS MD This examination was interpreted and the report reviewed and electronically signed by: LINNEA DIAS MD on Mar 06 2025 12:40AM EST [id number] Normal [facility] XR SHLDR >/=3V AP/JR AP/OTH R RTon [...] separation. No dislocation of the glenohumeral joint. Director Of Cardiac Rehabilitation: PSCB Transcribe Date/Time: Mar 06 2025 12:37A Dictated by : LINNEA DIAS MD This examination was interpreted and the report reviewed and electronically signed by: LINNEA DIAS MD on Mar 06 2025 12:40AM EST [id number] [facility]-20[facility] -------- CAL MITCHELL ([id number]) 1945 M Date Time Provider Department 02/20/25 JIMMY CARRIZALES During your visit today, we recorded the following information about you: Jimmy Carrizales, [facility] 02/20/2025 9:00 AM Signed [facility] Ambulatory Pharmacy Anticoagulation Clinic Anticoagulation Episode Summary Anticoagulation Care Providers Provider Role Specialty Phone number Guanakito Reno MD [facility] Family Medicine [phone] Cal Hageroll is a 79 year old [...] ALLERGIES No Known Allergies 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 Jimmy Carrizales [facility] Clinical Pharmacist, Pharmacy Anticoagulation Clinic Pharmacy Anticoagulation Clinic Pager: [phone]. Twin Cole [facility] 03/06/2025 12:38 PM Signed Patient [...] an injectable anticoagulant - No Twin Cole, [facility] Jimmy Carrizales [facility] 03/13/2025 7:40 AM Signed Cal Lua Paula was sent MyChart message and reminded to test INR today or as soon as possible. Jimmy Carrizales [facility] Alejandro Molina [facility] 03/20/2025 3:45 PM Signed No INR has been received or is in process at this time, will add to discharge list and start the discharge process at this time. Alejandro Molina [facility] Daniel (Health Consultant)Ashley 03/24/2025 10:52 AM Signed No return call from patient. Letter sent. FINAL ATTEMPT letter sent at this time. If no response from patient within 3 weeks of letter being sent, patient will be discharged from PAC at that time. Will also route to referring MD as FYI and to see if office can assist in reaching patient. Ashley Sanchez CPhT ([place]) Pharmacy Anticoagulation Clinic Guanakito Reno MD 03/24/2025 [...] Fu [148] Cmt: Home INR Primary Visit Diagnosis:penitentiary (current) use of anticoagulants [Z79.01] Other Visit [...] mg table (more content not included)... Normal [facility] CNPNon 01-31-2025 CNPN Telephone (PHAMTE) -------- CAL MITCHELL ([id number]) 1945 M Date Time Provider Department 01/31/25 KAMRAN AYON During your visit today, we recorded the following information about you: Kamran Ayon bobbi 01/31/2025 12:55 PM Signed [facility]ulatory Pharmacy Anticoagulation Clinic Anticoagulation Episode Summary Anticoagulation Care Providers Provider Role Specialty Phone number Guanakito Reno MD [facility] Family Medicine [phone] Cal Mitchell is a 79 year old [...] ALLERGIES No Known Allergies Indication for Warfarin: penitentiary (current) use of anticoagulants Paroxysmal atrial fibrillation [...] Pharmacy Anticoagulation Clinic Pharmacy Anticoagulation Clinic Pager: [phone]. 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 Normal [facility] CBC W Auto Differential pane l (Bld)on 01-21-2025 Basophils (Bld) [#/Vol] 0.07 10*3/uL Normal <0.11 [facility] Comment on above: Order Comment: Speci men Type: BLOOD SPECIMENOrdering Facility: [facility] Address: [address] [place] [address] Performed By: #### 5 7021-8 ####[facility] LABCLIA [id number] [address], [facility] [place] Basophils/100 WBC (Bld) 0.9 % Normal [facility] Comment on above: Order Comment: Speci men Type: BLOOD SPECIMENOrdering Facility: [facility] Address: [address] [place] [address] Performed By: #### 5 7021-8 ####[facility] LABCLIA [id number] [address], [place] [address] [place] Differential cell count method Nom (Bld) Auto Normal [facility] Comment on above: Order Comment: Speci men Type: BLOOD SPECIMENOrdering Facility: [facility] Address: [address] [place] [address] Performed By: #### 5 7021-8 ####[facility] LABCLIA [id number] [place] [address] [place] Eosinophils (Bld) [#/Vol] 0.25 10*3/uL Normal <0.46 [facility] Comment on above: Order Comment: Speci men Type: BLOOD SPECIMENOrdering Facility: [facility] Address: [address] [place] [address] Performed By: #### 5 7021-8 ####[facility] LABCLIA [id number] [place] [id number] [place] Eosinophils/100 WBC (Bld) 3.3 % Normal [facility] Comment on above: Order Comment: Speci men Type: BLOOD SPECIMENOrdering Facility: [facility] Address: [address] [place] [address] Performed By: #### 5 7021-8 ####[facility] LABCLIA [id number] [place] [address] [place] Erythrocyte distribution width (RBC) [Ratio] 14.8 % Normal 11.5-15.0 [facility] Comment on above: Order Comment: Speci men Type: BLOOD SPECIMENOrdering Facility: [facility] Address: [address] [place] [address] Performed By: #### 5 7021-8 ####[facility] LABCLIA [id number] [address], [place] [address] [place] Hematocrit (Bld) [Volume fraction] 41.2 % Normal 39.0-51.0 [facility] Comment on above: Order Comment: Speci men Type: BLOOD SPECIMENOrdering Facility: [facility] Address: [address] [place] [address] Performed By: #### 5 7021-8 ####[facility] LABIA [id number] [place] [address] [place] Hemoglobin (Bld) [Mass/Vol] 12.5 g/dL Low 13.0-17.0 [facility] Comment on above: Order Comment: Speci men Type: BLOOD SPECIMENOrdering Facility: [facility] Address: [address] [place] [address] Performed By: #### 5 7021-8 ####[facility] LABIA [id number] [place] [address] [place] Immature granulocytes (Bld) [#/Vol] 10*3/uL Normal <0.10 [facility] Comment on above: Order Comment: Speci men Type: BLOOD SPECIMENOrdering Facility: [facility] Address: [address] [place] [address] Performed By: #### 5 7021-8 ####[facility] LABCLIA [id number] [place] [address] [place] Immature granulocytes/100 WBC (Bld) 0.3 % Normal [facility] Comment on above: Order Comment: Speci men Type: BLOOD SPECIMENOrdering Facility: [facility] Address: [address] [place] [address] Performed By: #### 5 7021-8 ####[facility] LABCLIA [id number] [place] [address] [place] Lymphocytes (Bld) [#/Vol] 1.28 10*3/uL Normal 1.00-4.00 [facility] Comment on above: Order Comment: Speci men Type: BLOOD SPECIMENOrdering Facility: [facility] Address: [address] [place] [address] Performed By: #### 5 7021-8 ####[facility] LABCLIA [id number] [place] [address] [place] Lymphocytes/100 WBC (Bld) 17.1 % Normal [facility] Comment on above: Order Comment: Speci men Type: BLOOD SPECIMENOrdering Facility: [facility] Address: [address] [place] [address] Performed By: #### 5 7021-8 ####[facility] LABCLIA [id number] [place] [address] [place] MCH (RBC) [Entitic mass] 29.3 pg Normal 26.0-34.0 [facility] Comment on above: Order Comment: Speci men Type: BLOOD SPECIMENOrdering Facility: [facility] Address: [address] [place] [address] Performed By: #### 5 7021-8 ####[facility] LABCLIA [id number] [place] [address] [place] MCHC (RBC) [Mass/Vol] 30.3 g/dL Low 30.5-36.0 [facility] Comment on above: Order Comment: Speci men Type: BLOOD SPECIMENOrdering Facility: [facility] Address: [address] [place] [address] Performed By: #### 5 7021-8 ####[facility] LABCLIA [id number] [place] [address] [place] MCV (RBC) [Entitic vol] 96.7 fL Normal 80.0-100.0 C [facility] Comment on above: Order Comment: Speci men Type: BLOOD SPECIMENOrdering Facility: [facility] Address: [address] [place] [address] Performed By: #### 5 7021-8 ####[facility] LABIA [id number] [place] [address] [place] Monocytes (Bld) [#/Vol] 0.61 10*3/uL Normal <0.87 [facility] Comment on above: Order Comment: Speci men Type: BLOOD SPECIMENOrdering Facility: [facility] Address: [address] [place] [address] Performed By: #### 5 7021-8 ####[facility] LABIA [id number] [place] [address] [place] Monocytes/100 WBC (Bld) 8.2 % Normal C [facility] Comment on above: Order Comment: Speci men Type: BLOOD SPECIMENOrdering Facility: [facility] Address: [address] [place] [address] Performed By: #### 5 7021-8 ####[facility] LABIA [id number] [place] [address] [place] Neutrophils (Bld) [#/Vol] 5.25 10*3/uL Normal 1.45-7.50 [facility] Comment on above: Order Comment: Speci men Type: BLOOD SPECIMENOrdering Facility: [facility] Address: [address] [place] [address] Performed By: #### 5 7021-8 ####[facility] LABIA [id number] [place] [address] [place] Neutrophils/100 WBC (Bld) 70.2 % Normal [facility] Comment on above: Order Comment: Speci men Type: BLOOD SPECIMENOrdering Facility: [facility] Address: [address] [place] [address] Performed By: #### 5 7021-8 ####[facility] LABCLIA [id number] [facility] [address] [place] [address] [place] Nucleated RBC (Bld) [#/Vol] 10*3/uL Normal <0.01 [facility] Comment on above: Order Comment: Speci men Type: BLOOD SPECIMENOrdering Facility: [facility] Address: [address] [place] [address] Performed By: #### 5 7021-8 ####[facility] LABCLIA [id number] [facility] [address] [place] [address] [place] Nucleated RBC/100 WBC (Bld) [Ratio] 0.0 /100 WBC Normal [facility] Comment on above: Order Comment: Speci men Type: BLOOD SPECIMENOrdering Facility: [facility] Address: [address] [place] [address] Performed By: #### 5 7021-8 ####[facility] LABCLIA [id number] [address] [place] [address] [place] Platelet mean volume (Bld) [Entitic vol] 10.3 fL Normal 9.0-12.7 [facility] Comment on above: Order Comment: Speci men Type: BLOOD SPECIMENOrdering Facility: [facility] Address: [address] [place] [address] Performed By: #### 5 7021-8 ####[facility] LABCLIA [id number] [address] [place] [address] [place] Platelets (Bld) [#/Vol] 198 10*3/uL Normal 150-400 [facility] Comment on above: Order Comment: Speci men Type: BLOOD SPECIMENOrdering Facility: [facility] Address: [address] [place] [address] Performed By: #### 5 7021-8 ####[facility] LABCLIA [id number] [place] [id number] [place] RBC (Bld) [#/Vol] 4.26 10*6/uL Normal 4.20-6.00 [facility] Comment on above: Order Comment: Speci men Type: BLOOD SPECIMENOrdering Facility: [facility] Address: [address] [place] [address] Performed By: #### 5 7021-8 ####[facility] LABCLIA [id number] [place] [address] [place] WBC (Bld) [#/Vol] 7.48 10*3/uL Normal 3.70-11.00 [facility] Comment on above: Order Comment: Speci men Type: BLOOD SPECIMENOrdering Facility: [facility] Address: [address] [place] [address] Performed By: #### 5 7021-8 ####[facility] LABIA [id number] [address] OF [facility] CNOVon 01-21-2025 CNOV Office Visit (FAMPWS ) -------- CAL MITCHELL ([id number]) 1945 M Date Time Provider Department 01/21/25 3:40 PM CAROLINA LANDEROS FAMPWS During your visit today, we recorded the following information about you: Temperature Pulse Blood pressure Weight 97.6 degrees 59/minute 122/60 117 kg Carolina Landeros, CORPORATE STRATEGY ANALYST.BLADE CHANGER 01/21/2025 4:11 PM Signed This is a [...] taking lisinopril Monitors bp at home: Yes. Notrees checks it, ok there Denies side effects: [...] pain,every 5 min x3 blood sugar diagnostic (AsicAheadTOUCH ULTRA TEST) test strip Test blood sugar(s) [...] (20.0 ttl (more content not included)... Normal [facility] metabolic 2000 panelon 01-21-2025 Albumin [Mass/Vol] 4.1 g/dL Normal 3.9-4.9 [facility] Comment on above: Order Comment: Speci men Type: BLOOD SPECIMENOrdering Facility: [facility] Address: [address] [place] [address] Performed By: #### 2 132-9, 57010-3, 07849-8, LIPNF ####[facility] LABCLIA [id number] [place] [address] [place] ALP [Catalytic activity/Vol] 153 U/L High 38-113 [facility] Comment on above: Order Comment: Speci men Type: BLOOD SPECIMENOrdering Facility: [facility] Address: [address] [place] [address] Performed By: #### 2 132-9, 17217-9, 07470-4, LIPNF ####[facility] LABCLIA [id number] [place] [address] [place] ALT [Catalytic activity/Vol] 19 U/L Normal 10-54 [facility] Comment on above: Order Comment: Speci men Type: BLOOD SPECIMENOrdering Facility: [facility] Address: [address] [place] [address] Performed By: #### 2 132-9, 44205-1, 35415-1, LIPNF ####[facility] LABCLIA [id number] [place] [address] [place] Anion gap [Moles/Vol] 15 mmol/L Normal 8-15 [facility] Comment on above: Order Comment: Speci men Type: BLOOD SPECIMENOrdering Facility: [facility] Address: [address] [place] [address] Performed By: #### 2 132-9, 64226-9, 48939-7, LIPNF ####[facility] LABCLIA [id number] [place] [id number] [place] AST [Catalytic activity/Vol] 23 U/L Normal 14-40 [facility] Comment on above: Order Comment: Speci men Type: BLOOD SPECIMENOrdering Facility: [facility] Address: [address] [place] [address] Performed By: #### 2 132-9, 02403-1, 95594-3, LIPNF ####[facility] LABCLIA [id number] [place] [address] [place] Bilirubin [Mass/Vol] 0.6 mg/dL Normal 0.2-1.3 [facility] Comment on above: Order Comment: Speci men Type: BLOOD SPECIMENOrdering Facility: [facility] Address: [address] [place] [address] Performed By: #### 2 132-9, 77664-8, , LIPNF ####[facility] LABCLIA [id number] [place] [address] [place] Calcium [Mass/Vol] 8.8 mg/dL Normal 8.5-10.2 [facility] Comment on above: Order Comment: Speci men Type: BLOOD SPECIMENOrdering Facility: [facility] Address: [address] [place] [address] Performed By: #### 2 132-9, 95776-3, 87981-8, LIPNF ####[facility] LABCLIA [id number] [place] [address] [place] Chloride [Moles/Vol] 106 mmol/L Normal 98-107 [facility] Comment on above: Order Comment: Speci men Type: BLOOD SPECIMENOrdering Facility: [facility] Address: [address] [place] [address] Performed By: #### 2 132-9, 34162-9, 85361-8, LIPNF ####[facility] LABCLIA [id number] [place] [id number] [place] CO2 [Moles/Vol] 21 mmol/L Low 22-30 [facility] Comment on above: Order Comment: Speci men Type: BLOOD SPECIMENOrdering Facility: [facility] Address: [address] [place] [address] Performed By: #### 2 132-9, 04365-1, 59178-5, LIPNF ####[facility] LABCLIA [id number] [place] [address] [place] Creatinine [Mass/Vol] 2.34 mg/dL High 0.73-1.22 [facility] Comment on above: Order Comment: Speci men Type: BLOOD SPECIMENOrdering Facility: [facility] Address: [address] [place] [address] Performed By: #### 2 132-9, 03680-4, , LIPNF ####[facility] LABCLIA [id number] [place] [address] [place] Creatinine and Glomerular filtration rate.predicted panel (S/P/Bld) 27 mL/min/1.73m??? Low >=60 [facility] Comment on above: Order Comment: Jocelini men Type: BLOOD SPECIMENOrdering Facility: [facility] Address: [address] [place] [address] Result Comment: Lina mated Glomerular Filtration Rate [...] actual GFR. Performed By: #### 2 132-9, 61374-4, 99161-3, LIPNF ####[facility] LABCLIA [id number] [place] [id number] [place] Glucose [Mass/Vol] 122 mg/dL High 74-99 [facility] Comment on above: Order Comment: Speci men Type: BLOOD SPECIMENOrdering Facility: [facility] Address: [address] [place] [address] Result Comment: The [place] Diabetes Association (ADA) provides guidance for cutoff [...] Standards of Medical Care in Diabetes 2016, [place] Diabetes Association. Diabetes Care. 2016.39(Suppl 1). Performed By: #### 2 132-9, 88558-2, , LIPNF ####[facility] LABCLIA [id number] [place] [address] [place] Potassium [Moles/Vol] 4.3 mmol/L Normal 3.7-5.1 [facility] Comment on above: Order Comment: Speci men Type: BLOOD SPECIMENOrdering Facility: [facility] Address: [address] [place] [address] Performed By: #### 2 132-9, , , LIPNF ####[facility] LABCLIA [id number] [place] [address] [place] Protein [Mass/Vol] 7.2 g/dL Normal 6.3-8.0 [facility] Comment on above: Order Comment: Speci men Type: BLOOD SPECIMENOrdering Facility: [facility] Address: [address] [place] [id number] Performed By: #### 2 132-9, , , LIPNF ####[facility] LABCLIA [id number] [address] [address] [place] Sodium [Moles/Vol] 142 mmol/L Normal 136-144 [facility] Comment on above: Order Comment: Marcelle men Type: BLOOD SPECIMENOrdering Facility: [facility] Address: [address] [place] [address] Performed By: #### 2 132-9, 83613-3, , LIPNF ####[facility] LABCLIA [id number] [address] [address] [place] Urea nitrogen [Mass/Vol] 29 mg/dL High 9-24 [facility] Comment on above: Order Comment: Marcelle men Type: BLOOD SPECIMENOrdering Facility: [facility] Address: [address] [place] [address] Performed By: #### 2 132-9, 61453-0, , LIPNF ####[facility] LABIA [id number] [address] [address] [place] HbA1c (Bld)on 01-21-2025 Average glucose Estimated from glycated hemoglobin (Bld) [Mass/Vol] 146 mg/dL Normal [facility] Comment on above: Order Comment: Marcelle [facility] Type: BLOOD SPECIMENOrdering Facility: [facility] Address: [address] [place] [address] Result Comment: eAG: (Estimated average glucose) is a calculated value from HgbA1c and is u.s. representative of the average blood glucose level in the last 2-3 month period. Performed By: #### 5 5454-3 ####[facility] LABIA [id number] [place] [address] [place] HbA1c (Bld) [Mass fraction] 6.7 % High 4.3-5.6 [facility] Comment on above: Order Comment: [facility] Type: BLOOD SPECIMENOrdering Facility: [facility] Address: [address] [place] [address] Result Comment: Amer [place] Diabetes Association guidelines indicate that patients with HgbA1c in the range 5.7-6.4% are at increased risk for development of diabetes, and intervention by lifestyle modification may be beneficial. HgbA1c greater or equal to 6.5% is considered diagnostic of diabetes. Performed By: #### 5 5454-3 ####[facility] LABCLIA [id number] [place] [address] [place] LIPID PANEL, NONFASTINGon Cholesterol [Mass/Vol] 164 mg/dL Normal <200 [facility] Comment on above: Order Comment: Speci men Type: BLOOD SPECIMENOrdering Facility: [facility] Address: [address] [place] [address] Result Comment: <200 mg/dL, Desirable 200-239 mg/dL, Borderline high >239 mg/dL, High Performed By: #### 2 132-9, 63750-5, , LIPNF ####[facility] LABCLIA [id number] [address] STATES OF [facility] HDL CHOLESTEROL, NF 42 mg/dL Normal >39 [facility] Comment on above: Order Comment: Speci men Type: BLOOD SPECIMENOrdering Facility: [facility] Address: [address] [place] [address] Result Comment: 40-5 9 mg/dL, Acceptable >59 mg/dL, High: Negative risk factor for coronary heart disease <40 mg/dL, Low: Positive risk factor for coronary heart disease Performed By: #### 2 132-9, 73404-9, , LIPNF ####[facility] LABIA [id number] [address] [place] LDL CHOLESTEROL, NF 96 mg/dL Normal <100 [facility] Comment on above: Order Comment: Speci [facility] Type: BLOOD SPECIMENOrdering Facility: [facility] Address: [address] [place] [address] Result Comment: <100 mg/dL, Optimal 100-129 mg/dL, Near optimal/above optimal 130-159 mg/dL, Borderline high 160-189 mg/dL, High >189 mg/dL, Very high Secondary prevention optimal LDL Cholesterol levels are recommended to be < 70 mg/dL Performed By: #### 2 132-9, 25518-7, 65271-9, LIPNF ####[facility] LABCLIA [id number] [place] [id number] [facility] LDL/HDL RATIO, NF 2.29 mg/dL Normal <2.54 [facility] Comment on above: Order Comment: Speci men Type: BLOOD SPECIMENOrdering Facility: [facility] Address: [address] [place] [address] Result Comment: Refe rence: 1. National Cholesterol Education Program ATP III Guideline At-A-Glance Quick Desk Reference: National Heart, Lung, and Blood [place]. National Institutes of Health. 2001: NIH Publication No. 01-3305. 2. An International Atherosclerosis Society position paper: global recommendations for the management of dyslipidemia: executive summary, Atherosclerosis. 2014: 232(2):410-413. Performed By: #### 2 132-9, 13400-7, 31985-2, LIPNF ####[facility] LABCLIA [id number] [address] [place] NON HDL CHOL, NF 122 mg/dL Normal <130 [facility] Comment on above: Order Comment: Speci men Type: BLOOD SPECIMENOrdering Facility: [facility] Address: [address] [place] [address] Result Comment: <130 mg/dL, Optimal 130-159 mg/dL, Near optimal/above optimal 160-189 mg/dL, Borderline high 190-219 mg/dL, High >219 mg/dL, Very high Secondary prevention optimal non HDL Cholesterol levels are recommended to be <100 mg/dL Performed By: #### 2 132-9, 64112-0, 37298-8, LIPNF ####[facility] LABIA [id number] [address] STATES OF [facility] T CHOL/HDL RATIO NF 3.90 mg/dL Normal <5.10 [facility] Comment on above: Order Comment: Speci men Type: BLOOD SPECIMENOrdering Facility: [facility] Address: [address] [place] [address] Performed By: #### 2 132-9, 58199-3, 85917-1, LIPNF ####[facility] LABCLIA [id number] [address] [address] [place] TRIGLYCERIDES, NF 129 mg/dL Normal <150 [facility] Comment on above: Order Comment: Speci men Type: BLOOD SPECIMENOrdering Facility: [facility] Address: [address] [place] [address] Result Comment: <150 mg/dL, Normal 150-199 mg/dL, Borderline high 200-499 mg/dL, High >499 mg/dL, Very high Performed By: #### 2 132-9, 99509-3, , LIPNF ####[facility] LABCLIA [id number] [place] [address] [place] VLDL CHOLESTEROL, NF 26 mg/dL Normal <30 [facility] Comment on above: Order Comment: Speci men Type: BLOOD SPECIMENOrdering Facility: [facility] Address: [address] [place] [address] Performed By: #### 2 132-9, 26081-4, , LIPNF ####[facility] LABCLIA [id number] [place] [id number] [place] Magnesium SerPl-mCncon 01-21 Magnesium [Mass/Vol] 2.3 mg/dL Normal 1.7-2.3 [facility] Comment on above: Order Comment: Speci men Type: BLOOD SPECIMENOrdering Facility: [facility] Address: [address] [place], [place] [address] Performed By: #### 2 132-9, 24109-9, , LIPNF ####[facility] LABCLIA [id number] [place] [id number] [place] Vit B12 SerPl-mCncon 025 Cobalamin (Vitamin B12) [Mass/Vol] 385 pg/mL Normal 232-1245 [facility] Comment on above: Order Comment: Speci men Type: BLOOD SPECIMENOrdering Facility: [facility] Address: [address] [place] [address] Performed By: #### 2 132-9, 83290-9, 05582-4, LIPNF ####[facility] LABCLIA [id number] JESICA MARSHALL [address] OF [facility] CNPNon 01-08-2025 CNPN Telephone (PHAMTE) -------- CAL MITCHELL ([id number]) 1945 M Date Time Provider Department 01/08/25 RUTHIE CUEVAS During your visit today, we recorded the following information about you: Ruthie Cuevas bobbi 01/08/2025 9:14 AM Signed [facility] Anticoagulation Episode Summary Anticoagulation Care Providers Provider Role Specialty Phone number Guanakito Reno MD [facility] Family Medicine [phone] Cal Hageroll is a 79 year old [...] ALLERGIES No Known Allergies 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 Ruthie Cuevas RPh 01/29/2025 11:08 AM Addendum Cal Mitchell was called and reminded to test INR today or as soon as possible. LVMX for January. Ruthie Cuevas PharmD Pharmacy [facility]tico[facility] Clinic Allergies As of Date: 01/08/2025 (No Known Allergies) Date Reviewed: 08/06/2024 Reviewed by: Carolin Cantu LPN - Fully Assessed Reason for Visit: Anticoagulation Follow Up [145] Cmt: Home INR result Primary Visit Diagnosis:penitentiary (current) use of anticoagulants [Z79.01] Other Visit [...] Insulin: No - Lancets (ONE TOUCH DELICA) [facility] lancets Test blood sugar(s) one time daily. Dx: 250.00. Insulin: No Problem List As Of Date 01/08/2025 (more content not included)... Normal [facility] CAL MITCHELL ([id number]) 1945 M Date Time Provider Department 12/30/24 TWIN COLE During your visit today, we recorded the following information about you: Twin Cole [facility] 12/30/2024 9:14 AM Signed [facility] Anticoagulation Episode Summary Anticoagulation Care Providers Provider Role Specialty Phone number Guanakito Reno MD [facility] Medicine [phone] Cal Mitchell is a 79 year old [...] missed any doses of warfarin. Twin Cole [facility] Clinical Pharmacist, Pharmacy Anticoagulation Clinic Pharmacy Anticoagulation Clinic Pager: [phone]. Octavio (Health Consultant)Ruben 12/30/2024 9:15 AM Signed De called regarding INR result for patient. Result has been addressed below, no further action needed. Ruben Cunningham, Pot Washer (environmental project manager) Pharmacy Anticoagulation Clinic Jimmy Carrizales [facility] 01/07/2025 12:02 PM Signed Cal Mitchell was called, lvmx and reminded to test INR today or as soon as possible given that we left a VM last week also. [facility] As of Date: 12/30/2024 (No Known [...] Insulin: No - Lancets (ONE TOUCH DELICA) [facility] lancets Test blood sugar(s (more content not included)... Normal [facility] 12-11-2024 [facility] Telephone (SANJAYE) -------- CAL MITCHELL ([id number]) 1945 M Date Time Provider Department 12/11/24 JIMMY CARRIZALES During your visit today, we recorded the following information about you: [facility] 12/11/2024 9:51 AM Signed [facility] Anticoagulation Episode Summary Anticoagulation Care Providers Provider Role Specialty Phone number Guanakito Reno MD [facility] Medicine [phone] Cal Mitchell is a 79 year old [...] ALLERGIES No Known Allergies 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 Jimmy Carrizales [facility] Clinical Pharmacist, Pharmacy Anticoagulation Clinic Pharmacy Anticoagulation Clinic Pager: [phone]. 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 Normal [facility] CNPNon 11-26-2024 CNPN Telephone (SANJAYE) -------- CAL MITCHELL ([id number]) 1945 M Date Time Provider Department 11/26/24 TWIN COLE During your visit today, we recorded the following information about you: Twin Cole bobbi 11/26/2024 5:29 PM Signed [facility] Anticoagulation Episode Summary Anticoagulation Care Providers Provider Role Specialty Phone number Guanakito Reno MD [facility] Family Medicine [phone] Cal Mitchell is a 79 year old [...] missed any doses of warfarin. Twin Cole [facility] Clinical Pharmacist, Pharmacy Anticoagulation Clinic Pharmacy Anticoagulation Clinic Pager: [phone]. Yamilka Heath RN 11/27/2024 8:43 AM Signed Chris Ruggiero left a VM regarding the patient's INR result on 11/26/2024. Noted result has been addressed below. BENJIE Cardenas Kim [facility] 12/10/2024 10:31 AM Signed Cal Mitchell was called and reminded to test INR today or as soon as possible. Left VM on January's number. Twin Cole [facility] Allergies As of Date: 11/26/2024 (No Known [...] Insulin: No - Lancets (ONE TOUCH DELICA) [facility] lancets Test blood sugar(s) one time daily. Dx: 250.00. Insulin: No Problem Lis (more content not included)... Normal [facility] CNPNon 10-28-2024 CNPN Telephone (PHAMTE) -------- CAL MITCHELL ([id number]) 1945 M Date Time Provider Department 10/28/24 ALEJANDRO MOLINA During your visit today, we recorded the following information about you: Alejandro Molina RPh 10/28/2024 5:07 PM Signed [facility] Ambulatory [facility] Anticoagulation Clinic Anticoagulation Episode Summary Anticoagulation Care Providers Provider Role Specialty Phone number Guanakito Reno MD [facility] Family Medicine [phone] Cal Mitchell is a 79 year old [...] instructed to call [facility] at [phone] with any questions or concerns. Alejandro Molina [facility] Clinical Pharmacist, Pharmacy Anticoagulation Clinic Pharmacy Anticoagulation Clinic Pager: [phone] Alejandro Molina [facility] 11/11/2024 4:42 PM Signed Patient was due to test INR today. Will continue to monitor for results. Will follow up in one week if no results received. Alejandro Molina [facility] 11/18/2024 4:27 PM Signed Cal Mitchell was called and reminded to test INR today or as soon as possible. Alejandro Molina [facility] [place] [facility] 11/25/2024 2:53 PM Signed Added to discharge list Daniel (Health Consultant)Ashley 11/26/2024 2:43 PM Signed DISCHARGE No return call from patient. Letter sent. FINAL ATTEMPT letter sent at this time. If no response from patient within 4 weeks, patient will be discharged from PAC at that time. Will also route to referring MD as FYI and to see if office can assist in reaching patient. Ashley Sanchez CPhT ([place]) Pharmacy Anticoagulation Clinic Guanakito Reno MD 11/26/2024 [...] spoke to Ashlyn. Gave them the pharmacy [facility] phone number and they are going to [...] things anymore. 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 CHANCE Ramirez (Health Consultant)Ashley 11/26/2024 5:07 PM Signed PATIENT CALL Patient [...] received. PAC will await results. Ashley Sanchez ([facility] (more content not included)... Normal [facility] CAL MITCHELL ([id number]) 1945 M Date Time Provider Department 10/21/24 [...] for Visit: Patient Update [1234] Patient Question [1477] Prescriptions as of 10/21/2024 - atorvastatin (LIPITOR) [...] Insulin: No - Lancets (ONE TOUCH DELICA) [facility] lancets Test blood sugar(s) one time daily. [...] stenosis of unspecified carotid a*10/25/2013 03/26/2024 Frequency [[id number]] 02/11/2016 03/26/2024 BPH (benign prostatic hypertrophy) with urinary*02/11/2016 Adhesive capsulitis of right shoulder [M75.01] 05/15/2018 Aortic stenosis [I35.0] 05/24/2018 CKD (chronic kidney disease) stage 3, GFR 30-59*05/24/2018 03/26/2024 Lung (more content not included)... Normal [facility] CNPN Telephone (PHAMTE) -------- CAL MITCHELL ([id number]) 1945 M Date Time Provider Department 10/01/24 [place] During your visit today, we recorded the following information about you: Twin [place] [facility] 10/01/2024 9:42 AM Signed [facility] Ambulatory Pharm[facility] Anticoagulation Clinic Anticoagulation Episode Summary Anticoagulation Care Providers Provider Role Specialty Phone number Guanakito Reno MD [facility] Family Medicine [phone] Cal Mitchell is a 79 year old [...] Pharmacy Anticoagulation Clinic Pharmacy Anticoagulation Clinic Pager: [phone]. Twin Cole RPh 10/15/2024 12:10 PM Signed [...] (more content not included)... Normal [facility] 08-26-2024 CNPN Telephone (PHAMTE) -------- CAL MITCHELL ([id number]) 1945 M Date Time Provider Department 08/26/24 ALEJANDRO MOLINA During your visit today, we recorded the following information about you: Alejanrdo Molina RPh 08/26/2024 6:35 AM Signed [facility] Ambulatory Pharmacy Anticoagulation Clinic Anticoagulation Episode Summary Anticoagulation Care Providers Provider Role Specialty Phone number Guanakito Reno MD [facility] Family Medicine [phone] Cal Hageroll is a 79 year old [...] warfarin instructions: 5 mg every day Sent [employer] message Advised patient to continue current weekly dose as noted above Next INR check due on 09/09/2024 Alejandro Molina [facility] Clinical Pharmacist, Pharmacy Anticoagulation Clinic Pharmacy Anticoagulation Clinic Pager: [phone]. Alejandro Molina RPh 09/09/2024 4:38 PM Signed [...] Insulin: No - Lancets (ONE TOUCH DELICA) [facility] lancets Test blood sugar(s) one time daily. Dx: 250.00. Insulin: No Problem List As Of Date 08/26/2024 Noted Resolved Hyperlipidemia, mixed [E78.2] Essential hypertension [I10] Peripheral arterial disease (HCC) [I73.9] Other symptoms involving cardiovascular system * 07/20/2016 ACTINIC KERATOSIS [L57.0] 10/12/2005 IMPACTED CERUMEN [H61.20] (more content not included)... Normal [facility] Molly 08-16-2024 LUCIO Telephone (AGSP) -------- CAL MITCHELL ([id number]) 1945 M Date Time Provider Department 08/16/24 JIMMY STANLEY [facility] During your visit today, [...] Insulin: No - Lancets (ONE TOUCH DELICA) [facility] lancets Test blood sugar(s) one time daily. 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 Normal [facility] ECG B/O W INTERP (MED OFFICE )on 07-10-2024 Sinus rhythm with fi rst degree heart block [facility] US Kidney - bilateral and Ur inary bladderon 05-02-2024 IMPRESSION: No hydronephrosis. Cholelithiasis. Director Of Cardiac Rehabilitation: PSCB Transcribe Date/Time: May 02 2024 7:17P Dictated by : TIN COTTER DO This examination was interpreted and the report reviewed and electronically signed by: TIN COTTER DO on May 02 2024 7:19PM [facility] DIVISION OF RADIOLOGY * * *Final [...] Incidentally noted cholelithiasis. DIVISION OF RADIOLOGY Provider, [facility] [place] - 05/02/2024 * * *Final Report* * [...] noted cholelithiasis. IMPRESSION IMPRESSION: No hydronephrosis. Cholelithiasis. Director Of Cardiac Rehabilitation: MAC Transcribe Date/Time: May 02 2024 7:17P Dictated by : TIN COTTER DO This examination was interpreted and the report reviewed and electronically signed by: TIN COTTER DO on May 02 2024 7:19PM [facility] Radiology Study observation (narrative) [facility] US Kidney - bilateral and Ur inary bladderOrdered By: Ccf Provider on 05-02-2024 [facility] NT PRO BNPon 03-26-2024 Natriuretic peptide.B prohormone N-Terminal [Mass/Vol] 501 pg/mL High NINF - 450 pg/mL [facility] Natriuretic peptide.B prohor jodie N-Terminal [Mass/Vol]on 03-26-2024 Interpretation and review of laboratory results Abnormal [facility] THYROID STIMULATING HORMONEo n 03-26-2024 TSH Qn 2.950 m[IU]/L [facility] TSH Qnon 03-26-2024 Interpretation and review of laboratory results Normal [facility] CBC panel Auto (Bld)on 03-25 Erythrocyte distribution width (RBC) [Ratio] 14.9 % 11.5 - 15.0 % [facility] Hematocrit (Bld) [Volume fraction] 31.8 % Low 39.0 - 51.0 % [facility] Hemoglobin (Bld) [Mass/Vol] 9.6 g/dL Low 13.0 - 17.0 g/dL [facility] Interpretation and review of laboratory results Abnormal [facility] MCH (RBC) [Entitic mass] 30.9 pg 26.0 - 34.0 pg [facility] MCHC (RBC) [Mass/Vol] 30.2 g/dL Low 30.5 - 36.0 g/dL [facility] MCV (RBC) [Entitic vol] 102.3 fL High 80.0 - 100.0 fL [facility] Nucleated RBC (Bld) [#/Vol] NINF [facility] Platelet mean volume (Bld) [Entitic vol] 9.8 fL 9.0 - 12.7 fL [facility] Platelets (Bld) [#/Vol] 158 10*3/uL [facility] RBC (Bld) [#/Vol] 3.11 10*6/uL Low 4.20 - 6.0 0 m/uL [facility] WBC (Bld) [#/Vol] 4.72 10*3/uL [facility] Comprehensive metabolic 2000 panelOrdered By: Haley Marie on 03-25-2024 Albumin [Mass/Vol] 3.7 g/dL Low 3.9 - 4.9 g/dL [facility] ALP [Catalytic activity/Vol] 109 U/L 38 - 113 U/L [facility] ALT [Catalytic activity/Vol] 15 U/L 10 - 54 U/L [facility] Anion gap [Moles/Vol] 12 mmol/L 8 - 15 mmol/L [facility] AST [Catalytic activity/Vol] 19 U/L 14 - 40 U/L [facility] Bilirubin [Mass/Vol] 0.3 mg/dL 0.2 - 1 .3 mg/dL [facility] Calcium [Mass/Vol] 8.6 mg/dL 8.5 - 10. 2 mg/dL [facility] Chloride [Moles/Vol] 113 mmol/L High 98 - 10 7 mmol/L [facility] CO2 [Moles/Vol] 16 mmol/L Low 22 - 30 mmol/L [facility] Creatinine [Mass/Vol] 2.48 mg/dL High 0.73 - 1.22 mg/dL [facility] GFR/1.73 sq M.predicted among non-blacks MDRD (S/P/Bld) [Vol rate/Area] 26 mL/min/{1.73_m2} Low - PINF [facility] Comment on above: Estimated Glomerular Filtration [...] [Mass/Vol] 99 mg/dL 74 - 99 mg/dL [facility] Comment on above: The [place] Diab[employer] Association (ADA) provides guidance for [...] Standards of Medical Care in Diabetes 2016, [place] [employer]. Diabetes Care. 2016.39(Suppl 1). Interpretation and review of laboratory results Abnormal [facility] Potassium [Moles/Vol] 4.4 mmol/L 3.7 - 5.1 mmol/L [facility] Protein [Mass/Vol] 6.4 g/dL 6.3 - 8.0 g/dL [facility] Sodium [Moles/Vol] 141 mmol/L 136 - 144 mmol/L [facility] Urea nitrogen [Mass/Vol] 49 mg/dL High 9 - 24 mg/dL [facility] ALBUMIN/CREAT RATIO RND URon 08-14-2023 Albumin DL <= 20 mg/L (U) [Mass/Vol] 26.7 mg/L [facility] Albumin/Creatinine (U) [Mass ratio] 27 mg/g <30 mg/g [facility] Creatinine (U) [Mass/Vol] 98.9 mg/dL 20.0 - 300.0 mg/dL [facility] CBC W Auto Differential pane l (Bld)on 08-14-2023 Basophils (Bld) [#/Vol] 0.05 10*3/uL <0.11 k/uL [facility] Basophils/100 WBC (Bld) 0.9 % C [facility] Differential cell count method Nom (Bld) Auto [facility] Eosinophils (Bld) [#/Vol] 0.44 10*3/uL <0.46 k/uL [facility] Eosinophils/100 WBC (Bld) 8.3 % [facility] Erythrocyte distribution width (RBC) [Ratio] 14.5 % 11.5 - 15.0 % [facility] Hematocrit (Bld) [Volume fraction] 38.6 % Low 39.0 - 51.0 % [facility] Hemoglobin (Bld) [Mass/Vol] 11.7 g/dL Low 13.0 - 17.0 g/dL [facility] Immature granulocytes (Bld) [#/Vol] <0.10 k/uL [facility] Immature granulocytes/100 WBC (Bld) 0.4 % [facility] Lymphocytes (Bld) [#/Vol] 1.18 10*3/uL 1.00 - 4.00 k/uL [facility] Lymphocytes/100 WBC (Bld) 22.1 % [facility] MCH (RBC) [Entitic mass] 31.3 pg 26.0 - 34.0 pg [facility] MCHC (RBC) [Mass/Vol] 30.3 g/dL Low 30.5 - 36.0 g/dL [facility] MCV (RBC) [Entitic vol] 103.2 fL High 80.0 - 100.0 fL [facility] Monocytes (Bld) [#/Vol] 0.42 10*3/uL <0.87 k/uL [facility] Monocytes/100 WBC (Bld) 7.9 % C [facility] Neutrophils (Bld) [#/Vol] 3.22 10*3/uL 1.45 - 7.50 k/uL [facility] Neutrophils/100 WBC (Bld) 60.4 % [facility] Nucleated RBC (Bld) [#/Vol] <0.01 k/uL [facility] Nucleated RBC/100 WBC (Bld) [Ratio] 0.0 /100 WBC [facility] Platelet mean volume (Bld) [Entitic vol] 10.5 fL 9.0 - 12.7 fL [facility] Platelets (Bld) [#/Vol] 144 10*3/uL Low 150 - 400 k/uL [facility] RBC (Bld) [#/Vol] 3.74 10*6/uL Low 4.20 - 6.0 0 m/uL [facility] WBC (Bld) [#/Vol] 5.33 10*3/uL 3.70 - 11.00 k/uL [facility] Comprehensive metabolic 2000 panelon 08-14-2023 Albumin [Mass/Vol] 4.1 g/dL 3.9 - 4.9 g/dL [facility] ALP [Catalytic activity/Vol] 111 U/L 38 - 113 U/L [facility] ALT [Catalytic activity/Vol] 21 U/L 10 - 54 U/L [facility] Anion gap [Moles/Vol] 11 mmol/L 9 - 18 mmol/L [facility] AST [Catalytic activity/Vol] 26 U/L 14 - 40 U/L [facility] Bilirubin [Mass/Vol] 0.5 mg/dL 0.2 - 1 .3 mg/dL [facility] Calcium [Mass/Vol] 8.8 mg/dL 8.5 - 10. 2 mg/dL [facility] Chloride [Moles/Vol] 106 mmol/L High 97 - 10 5 mmol/L [facility] CO2 [Moles/Vol] 24 mmol/L 22 - 30 mmol/L [facility] Creatinine [Mass/Vol] 2.30 mg/dL High 0.73 - 1.22 mg/dL [facility] Estimated Glomerular Filtration Rate 28 mL/min/1.73m Low >=60 mL/min/1.73 m [facility] Glucose [Mass/Vol] 113 mg/dL High 74 - 99 mg/dL [facility] Potassium [Moles/Vol] 4.6 mmol/L 3.7 - 5.1 mmol/L [facility] Protein [Mass/Vol] 7.0 g/dL 6.3 - 8.0 g/dL [facility] Sodium [Moles/Vol] 141 mmol/L 136 - 144 mmol/L [facility] Urea nitrogen [Mass/Vol] 28 mg/dL High 9 - 24 mg/dL [facility] HbA1c (Bld)on 08-14-2023 Average glucose Estimated from glycated hemoglobin (Bld) [Mass/Vol] 108 mg/dL [facility] HbA1c (Bld) [Mass fraction] 5.4 % 4.3 - 5.6 % [facility] Lipid 1996 panelon Cholesterol [Mass/Vol] 165 mg/dL <200 mg/dL [facility] Cholesterol in HDL [Mass/Vol] 44 mg/dL >39 mg/dL [facility] Cholesterol in LDL [Mass/Vol] 100 mg/dL High <100 mg/dL [facility] Cholesterol in LDL/Cholesterol in HDL [Mass ratio] 2.27 {ratio} <2.54 [facility] Cholesterol in VLDL [Mass/Vol] 21 mg/dL <30 mg/dL [facility] Cholesterol non HDL [Mass/Vol] 121 mg/dL <130 mg/dL [facility] Cholesterol.total/Julia sterol in HDL [Mass ratio] 3.75 {ratio} <5.10 [facility] Fasting Time 14 hrs [facility] Triglyceride [Mass/Vol] 106 mg/dL <150 mg/dL C [facility] INR FINGERSTICK B/Oon 2021 INR Coag (Bld) [Relative time] 1.9 (self reporting) [facility] INR FINGERSTICK B/Oon 2021 INR Coag (Bld) [Relative time] 2.1 biotel [facility] Quality Check No [facility] Vital Signs Date Time Vital Sign Value Performing Clinician Facility 03-07-2025 12:57-0400 Body height 177.[address] Guanakito Reno MD Work Phone: [facility] 03-07-2025 12:57-0400 Body mass index (BMI) [Ratio] 35.9 kg/m2 Dr. Guanakito Reno MD Work Phone: [facility] 03-07-2025 12:57-0400 Body weight 113.[address] Guanakito Reno MD Work Phone: [facility] 01-21-2025 15:33-0400 Body mass index (BMI) [Ratio] 37.02 kg/m2 Carolina Landeros APRN.BLADE CHANGER Work Phone: [facility] 01-21-2025 15:33-0400 Body temperature 97.59 [degF] Carolina Landeros APRN.BLADE CH[employer] Work Phone: [facility] 01-21-2025 15:33-0400 Body weight 117.03 kg Carolina Landeros APRN.[employer] Work Phone: [facility] 01-21-2025 15:33-0400 Diastolic blood pressure 60 mm[Hg] Carolina Suppan CORPORATE STRATEGY ANALYST.[employer] Work Phone: [facility] 01-21-2025 15:33-0400 Heart rate 59 /min Carolina Suppan CORPORATE STRATEGY ANALYST.[employer] Work Phone: [facility] 01-21-2025 15:33-0400 SaO2% (BldA) [Mass fraction] 97 % Carolina Suppan CORPORATE STRATEGY ANALYST.[employer] Work Phone: [facility] 01-21-2025 15:33-0400 Systolic blood pressure 122 mm[Hg] Carolina Suppan CORPORATE STRATEGY ANALYST.[employer] Work Phone: [facility] 08-06-2024 12:57-0400 Body height 177.8 cm Laura Iraheta MD Work Phone: [facility] Comment on above: patient reports 08-06-2024 12:57-0400 Body mass index (BMI) [Ratio] 34.44 kg/m2 Laura Iraheta MD Work Phone: [facility] 08-06-2024 12:57-0400 Body weight 108.86 kg Laura Iraheta MD Work Phone: [facility] 08-06-2024 12:57-0400 Diastolic blood pressure 68 mm[Hg] Laura Iraheta MD Work Phone: [facility] 08-06-2024 12:57-0400 Heart rate 61 /min Laura Iraheta MD Work Phone: [facility] 08-06-2024 12:57-0400 SaO2% (BldA) [Mass fraction] 99 % Laura Iraheta MD Work Phone: [facility] 08-06-2024 12:57-0400 Systolic blood pressure 128 mm[Hg] Laura Iraheta MD Work Phone: [facility] 07-12-2024 11:22-0400 Body height 177.8 cm Guanakito Reno MD Work Phone: [facility] 07-12-2024 11:22-0400 Body mass index (BMI) [Ratio] 34.55 kg/m2 Guanakito Reno MD Work Phone: [facility] 07-12-2024 11:22-0400 Body weight 109.23 kg Guanakito Reno MD Work Phone: [facility] 07-12-2024 11:22-0400 Diastolic blood pressure 62 mm[Hg] Guanakito Reno MD Work Phone: [facility] 07-12-2024 11:22-0400 Heart rate 59 /min Guanakito Reno MD Work Phone: [facility] 07-12-2024 11:22-0400 Systolic blood pressure 114 mm[Hg] Guanakito Reno MD Work Phone: [facility] 07-10-2024 08:11-0400 Body height 177.8 cm Cal Mondragon MD Work Phone: [facility] Comment on above: Patient reports 07-10-2024 08:11-0400 Body mass index (BMI) [Ratio] 34.49 kg/m2 Cal Mondraogn MD Work Phone: [facility] 07-10-2024 08:11-0400 Body weight 109.05 kg Cal Mondragon MD Work Phone: [facility] 07-10-2024 08:11-0400 Diastolic blood pressure 70 mm[Hg] Cal Mondragon MD Work Phone: [facility] 07-10-2024 08:11-0400 Heart rate 94 /min Cal Mondragon MD Work Phone: [facility] 07-10-2024 08:11-0400 SaO2% (BldA) [Mass fraction] 94 % Cal Mondragon MD Work Phone: [facility] 07-10-2024 08:11-0400 Systolic blood pressure 120 mm[Hg] Cal Mondragon MD Work Phone: [facility] 07-10-2024 08:08-0400 Body height 177.8 cm Pam Reddy MD Work Phone: [facility] Comment on above: Patient reports 07-10-2024 08:08-0400 Body mass index (BMI) [Ratio] 34.49 kg/m2 Pam Reddy MD Work Phone: [facility] 07-10-2024 08:08-0400 Body weight 109.05 kg Pam Reddy MD Work Phone: [facility] Comment on above: Fully clothed with shoes on. 07-10-2024 08:08-0400 Diastolic blood pressure 70 mm[Hg] Pam Reddy MD Work Phone: [facility] 07-10-2024 08:08-0400 Heart rate 94 /min Pam Reddy MD Work Phone: [facility] 07-10-2024 08:08-0400 SaO2% (BldA) [Mass fraction] 94 % Pam Reddy MD Work Phone: [facility] 07-10-2024 08:08-0400 Systolic blood pressure 120 mm[Hg] Pam Reddy MD Work Phone: [facility] 06-06-2024 11:31-0400 Body mass index (BMI) [Ratio] 36.03 kg/m2 Carolina Suppan CORPORATE STRATEGY ANALYST.BL[employer] Work Phone: [facility] 06-06-2024 11:31-0400 Body weight 110.68 kg Carolina Suppan CORPORATE STRATEGY ANALYST.BLADE CHANGER Work Phone: [facility] 06-06-2024 11:31-0400 Diastolic blood pressure 68 mm[Hg] Carolina Suppan CORPORATE STRATEGY ANALYST.BLADE CHANGER Work Phone: [facility] 06-06-2024 11:31-0400 Heart rate 71 /min Carolina Suppan CORPORATE STRATEGY ANALYST.BLADE CHANGER Work Phone: [facility] 06-06-2024 11:31-0400 Respiratory rate 18 /min Carolina Suppan CORPORATE STRATEGY ANALYST.BL[employer]ER Work Phone: [facility] 06-06-2024 11:31-0400 SaO2% (BldA) [Mass fraction] 99 % Carolina Landeros CORPORATE STRATEGY ANALYST.[employer] Work Phone: [facility] 06-06-2024 11:31-0400 Systolic blood pressure 144 mm[Hg] Carolina Suppan CORPORATE STRATEGY ANALYST.[employer] Work Phone: [facility] 06-05-2024 16:41-0400 Body mass index (BMI) [Ratio] 36.04 kg/m2 Valerie Connelly CORPORATE STRATEGY ANALYST.BL[employer]ER Work Phone: [facility] 06-05-2024 16:41-0400 Body temperature 96.6 [degF] Valerie Connelly CORPORATE STRATEGY ANALYST.BL[employer] CH[employer]ER Work Phone: [facility] 06-05-2024 16:41-0400 Body weight 110.7 kg Valerie Connelly CORPORATE STRATEGY ANALYST.[employer] Work Phone: [facility] 06-05-2024 16:41-0400 Diastolic blood pressure 70 mm[Hg] Valerie Connelly CORPORATE STRATEGY ANALYST.[employer] Work Phone: [facility] 06-05-2024 16:41-0400 Heart rate 75 /min Valerie Connelly CORPORATE STRATEGY ANALYST.[employer] Work Phone: [facility] 06-05-2024 16:41-0400 Respiratory rate 19 /min Valerie Connelly CORPORATE STRATEGY ANALYST.BL[employer]ER Work Phone: [facility] 06-05-2024 16:41-0400 SaO2% (BldA) [Mass fraction] 97 % Valerie Connlely CORPORATE STRATEGY ANALYST.BL[employer] Work Phone: [facility] 06-05-2024 16:41-0400 Systolic blood pressure 140 mm[Hg] Valerie Connelly CORPORATE STRATEGY ANALYST.BL[employer]ER Work Phone: [facility] 05-06-2024 17:38-0400 Body height 175.3 cm Corrina Lennon CORPORATE STRATEGY ANALYST.BL[employer]ER Work Phone: [facility] 05-06-2024 17:38-0400 Body mass index (BMI) [Ratio] 37.95 kg/m2 Corrina Haagen CORPORATE STRATEGY ANALYST.[employer] Work Phone: [facility] 05-06-2024 17:38-0400 Body weight 116.57 kg Corrina Haagen CORPORATE STRATEGY ANALYST.BL[employer] Work Phone: [facility] 05-06-2024 17:38-0400 Diastolic blood pressure 58 mm[Hg] Corrina Haagen CORPORATE STRATEGY ANALYST.[employer] Work Phone: [facility] 05-06-2024 17:38-0400 Heart rate 62 /min Corrina Haagen CORPORATE STRATEGY ANALYST.BL[employer]ER Work Phone: [facility] 05-06-2024 17:38-0400 Respiratory rate 14 /min Corrina Haagen CORPORATE STRATEGY ANALYST.BL[employer]ER Work Phone: [facility] 05-06-2024 17:38-0400 SaO2% (BldA) [Mass fraction] 89 % Corrina Haagen CORPORATE STRATEGY ANALYST.[employer] Work Phone: [facility] 05-06-2024 17:38-0400 Systolic blood pressure 122 mm[Hg] Corrina Haagen CORPORATE STRATEGY ANALYST.BL[employer] Work Phone: [facility] 04-08-2024 15:17-0400 Body mass index (BMI) [Ratio] 37.63 kg/m2 Corrina Haagen CORPORATE STRATEGY ANALYST.BLADE CHANGER Work Phone: [facility] 04-08-2024 15:17-0400 Body weight 115.58 kg Corrina Haagen CORPORATE STRATEGY ANALYST.BLADE CHANGER Work Phone: [facility] 04-08-2024 14:55-0400 Diastolic blood pressure 58 mm[Hg] Corrina Haagen CORPORATE STRATEGY ANALYST.BLADE CHANGER Work Phone: [facility] 04-08-2024 14:55-0400 Heart rate 72 /min Corrina Haagen CORPORATE STRATEGY ANALYST.BLADE CHANGER Work Phone: [facility] 04-08-2024 14:55-0400 Respiratory rate 16 /min Corrina Haagen CORPORATE STRATEGY ANALYST.BLADE CHANGER Work Phone: [facility] 04-08-2024 14:55-0400 Systolic blood pressure 102 mm[Hg] Corrina Haagen CORPORATE STRATEGY ANALYST.BLADE CHANGER Work Phone: [facility] 03-26-2024 16:33-0400 Body height 175.3 cm Guanakito Reno MD Work Phone: [facility] 03-26-2024 16:33-0400 Body mass index (BMI) [Ratio] 37.07 kg/m2 Guanakito Reno MD Work Phone: [facility] 03-26-2024 16:33-0400 Body weight 113.85 kg Guanakito Reno MD Work Phone: [facility] 03-26-2024 16:33-0400 Diastolic blood pressure 46 mm[Hg] Guanakito Reno MD Work Phone: [facility] 03-26-2024 16:33-0400 Heart rate 86 /min Guanakito Reno MD Work Phone: [facility] 03-26-2024 16:33-0400 SaO2% (BldA) [Mass fraction] 98 % Guanakito Reno MD Work Phone: [facility] 03-26-2024 16:33-0400 Systolic blood pressure 98 mm[Hg] Guanakito Reno MD Work Phone: [facility] 03-25-2024 14:52-0400 Body mass index (BMI) [Ratio] 37.21 kg/m2 Pam Reddy MD Work Phone: [facility] 03-25-2024 14:52-0400 Body weight 114.31 kg Pam Reddy MD Work Phone: [facility] 03-25-2024 14:52-0400 Diastolic blood pressure 69 mm[Hg] Pam Reddy MD Work Phone: [facility] 03-25-2024 14:52-0400 Heart rate 66 /min Pam Reddy MD Work Phone: [facility] 03-25-2024 14:52-0400 SaO2% (BldA) [Mass fraction] 96 % Pam Reddy MD Work Phone: [facility] 03-25-2024 14:52-0400 Systolic blood pressure 116 mm[Hg] Pam Reddy MD Work Phone: [facility] 12-22-2023 14:55-0500 Body temperature 97.81 [degF] Carolina Suppan CORPORATE STRATEGY ANALYST.ANIMAL SERVICES OFFICER Work Phone: [facility] 12-22-2023 14:55-0500 Diastolic blood pressure 60 mm[Hg] Carolina Suppan CORPORATE STRATEGY ANALYST.ANIMAL SERVICES OFFICER Work Phone: [facility] 12-22-2023 14:55-0500 Heart rate 76 /min Carolina Suppan CORPORATE STRATEGY ANALYST.ANIMAL SERVICES OFFICER Work Phone: [facility] 12-22-2023 14:55-0500 Respiratory rate 18 /min Carolina Suppan CORPORATE STRATEGY ANALYST.ANIMAL SERVICES OFFICER Work Phone: [facility] 12-22-2023 14:55-0500 SaO2% (BldA) [Mass fraction] 99 % Carolina Suppan CORPORATE STRATEGY ANALYST.ANIMAL SERVICES OFFICER Work Phone: [facility] 12-22-2023 14:55-0500 Systolic blood pressure 122 mm[Hg] Carolina Suppan CORPORATE STRATEGY ANALYST.ANIMAL SERVICES OFFICER Work Phone: [facility] 08-14-2023 13:24-0400 Body height 175.3 cm Guanakito Reno MD Work Phone: [facility] 08-14-2023 13:24-0400 Body weight 120.75 kg Guanakito Reno MD Work Phone: [facility] 08-14-2023 13:24-0400 Diastolic blood pressure 68 mm[Hg] Guanakito Reno MD Work Phone: [facility] 08-14-2023 13:24-0400 Heart rate 59 /min Guanakito Reno MD Work Phone: [facility] 08-14-2023 13:24-0400 SaO2% (BldA) [Mass fraction] 99 % Guanakito Reno MD Work Phone: [facility] 08-14-2023 13:24-0400 Systolic blood pressure 120 mm[Hg] Guanakito Reno MD Work Phone: [facility] 02-13-2023 14:39-0400 Body weight 119.75 kg Pam Reddy MD Work Phone: [facility] 02-13-2023 14:39-0400 Diastolic blood pressure 60 mm[Hg] Pam Reddy MD Work Phone: [facility] 02-13-2023 14:39-0400 Heart rate 78 /min Pam Reddy MD Work Phone: [facility] 02-13-2023 14:39-0400 SaO2% (BldA) [Mass fraction] 96 % Pam Reddy MD Work Phone: [facility] 02-13-2023 14:39-0400 Systolic blood pressure 110 mm[Hg] Pam Reddy MD Work Phone: [facility] 02-06-2023 15:29-0400 Body weight 118.39 kg Guanakito Reno MD Work Phone: [facility] 02-06-2023 15:29-0400 Diastolic blood pressure 58 mm[Hg] Guanakito Reno MD Work Phone: [facility] 02-06-2023 15:29-0400 Heart rate 76 /min Guanakito Reno MD Work Phone: [facility] 02-06-2023 15:29-0400 Respiratory rate 16 /min Guanakito Reno MD Work Phone: [facility] 02-06-2023 15:29-0400 SaO2% (BldA) [Mass fraction] 94 % Guanakito Reno MD Work Phone: [facility] 02-06-2023 15:29-0400 Systolic blood pressure 122 mm[Hg] Guanakito Reno MD Work Phone: [facility] 10-04-2022 10:38-0500 Body height 175.3 cm Alondra Prescott DO Work Phone: [facility] 10-04-2022 10:38-0500 Body weight 117.03 kg Alondra Prescott DO Work Phone: [facility] 10-04-2022 10:38-0500 Diastolic blood pressure 66 mm[Hg] Alondra Prescott DO Work Phone: [facility] 10-04-2022 10:38-0500 Heart rate 57 /min Alondra Prescott DO Work Phone: [facility] 10-04-2022 10:38-0500 SaO2% (BldA) [Mass fraction] 100 % Alondra Prescott DO Work Phone: [facility] 10-04-2022 10:38-0500 Systolic blood pressure 122 mm[Hg] Alondra Prescott DO Work Phone: [facility] 08-15-2022 14:50-0400 Body height 175.3 cm Pam Reddy MD Work Phone: [facility] 08-15-2022 14:50-0400 Body weight 119.3 kg Pam Reddy MD Work Phone: [facility] 08-15-2022 14:50-0400 Diastolic blood pressure 62 mm[Hg] Pam Reddy MD Work Phone: [facility] 08-15-2022 14:50-0400 Heart rate 58 /min Pam Reddy MD Work Phone: [facility] 08-15-2022 14:50-0400 Respiratory rate 18 /min Pam Reddy MD Work Phone: [facility] 08-15-2022 14:50-0400 SaO2% (BldA) [Mass fraction] 98 % Pam Reddy MD Work Phone: [facility] 08-15-2022 14:50-0400 Systolic blood pressure 114 mm[Hg] Pam Reddy MD Work Phone: [facility] 01-19-2022 15:14-0400 Body weight 121.11 kg Guanakito Reno MD Work Phone: [facility] 01-19-2022 15:14-0400 Diastolic blood pressure 68 mm[Hg] Guanakito Reno MD Work Phone: [facility] 01-19-2022 15:140400 Heart rate 60 /min Guanakito Reno MD Work Phone: [facility] 01-19-2022 15:14-0400 Systolic blood pressure 124 mm[Hg] Guanakito Reno MD Work Phone: [facility] Encounters Encounter Date Encounter Type Care Provider Facility Start: 08-26-2025 ambulatory Josafat Simon OLS Facil ity:[facility] Start: 08-19-2025 ambulatory Josafat Simon OLS Facil ity:[facility] Start: 08-14-2025 ambulatory Josafat Simon OLS Facil ity:[facility] Start: 07-31-2025 ambulatory Josafat Simon OLS Facil ity:[facility] Start: 07-17-2025 End: 07-17-2025 ambulatory Guanakito Shadia Facility:[facility] Start: 07-08-2025 End: 07-08-2025 ambulatory Josafat Simon OLS Facility:[facility] Start: 06-24-2025 End: 06-24-2025 ambulatory Josafat Simon OLS Facility:[facility] Start: 06-17-2025 ambulatory Josafat Simon OLS Facil ity:[facility] Start: 06-12-2025 End: 06-12-2025 ambulatory Josafat Simon OLS Facility:[facility] Start: 06-10-2025 End: 06-10-2025 ambulatory Bianka ORTEZ Facility:[facility] Start: 06-03-[address] Josafat juarez MD -[facility] Start: 06-03-2025 End: 06-03-2025 ambulatory Guanakito Shadia Facility:[facility] Start: 05-27-[address] Josafat juarez MD -[facility] Start: 05-27-2025 End: 05-27-2025 ambulatory Josafat ORTEZ Facility:[facility] Start: 05-20-2025 End: 05-20-[address] Guanakito Reno MD Work Phone: -[facility] Start: 05-20-2025 End: 05-20-[address] Josafat Simon MD [facility] Start: 05-20-2025 End: 05-20-2025 ambulatory Josafat ORTEZ Facility:[facility] Start: 05-15-2025 ambulatory Josafat ORTEZ Facil ity:[facility] Start: 05-15-[address] Josafat juarez MD [facility] Start: 05-13-[address] Josafat juarez MD [facility] Start: 05-13-2025 End: 05-13-2025 ambulatory Josafat ORTEZ Facility:[facility] Start: 05-08-2025 ambulatory Josafat ORTEZ Facil ity:[facility] Start: 05-08-[address] Josafat juarez MD [facility] Start: 05-06-[address] Josafat juarez MD [facility] Start: 05-06-2025 End: 05-06-2025 ambulatory Josafat ORTEZ Facility:[facility] Start: 05-02-2025 End: 05-02-[address] Burt Zamora MD -[facility] Start: 05-02-2025 End: 05-02-[address] Guanakito Reno MD Work Phone: -[facility] Start: 05-01-2025 ambulatory Josafat ORTEZ Facil ity:[facility] Start: 05-01-[address] Josafat juarez MD [facility] Start: 04-29-[address] Josafat juarez MD [facility] Start: 04-29-2025 End: 04-29-2025 ambulatory Josafat ORTEZ Facility:[facility] Start: 04-24-2025 ambulatory Josafat ORTEZ Facil ity:[facility] Start: 04-24-[address] Josafat juarez MD [facility] Start: 04-17-[address] Bianka Gonzalez MD [facility] Start: 04-17-2025 End: 04-17-2025 ambulatory Bianka ORTEZ Facility:[facility] Start: 04-15-2025 End: 04-15-2025 Telephone encounter Twin Kelsey [facility] Ambulatory Telemanagement Comment on above: Anticoagulation Tele phone Fu (Home INR result) Start: 04-14-2025 End: 04-14-2025 Telephone encounter Guanakito Reno MD Work Phone: [facility] Comment on above: Patient Question Start: 04-14-2025 ambulatory Josafat García Facility :[facility] Start: 04-14-[address] Josafat García MD -Physical Therapy Work Phone: Start: 04-08-2025 End: 04-08-2025 Refill Carolina Landeros CORPORATE STRATEGY ANALYST.BLADE CHANGER Work Phone: [facility] Comment on above: Refill Request Start: 03-28-2025 End: 03-28-2025 Telephone encounter Guanakito Reno MD Work Phone: [facility] Comment on above: Faxed to [facility] Start: 03-24-2025 End: 03-24-2025 Telephone encounter Alejandro Molina [facility] Ambulatory Telemanagement Comment on above: Anticoagulation Tele phone Fu (Home INR Result ) Start: 03-07-2025 End: 03-07-[address] Josafat García MD -[facility] Work Phone: Start: 03-07-2025 End: 03-07-2025 ambulatory Guanakito Reno Facility[facility] Start: 03-06-2025 End: 03-06-2025 ambulatory CAROLINA LANDEROS Facility:[facility] Start: 03-05-2025 End: 03-06-2025 Emergency department patient visit KEDAR HERNANDEZ Facility:[facility] Start: 02-20-2025 End: 02-20-2025 Telephone encounter Jimmy Carrizales [facility] Ambulatory Telemanagement Comment on above: Anticoagulation Tele phone Fu (Home INR) Start: 01-31-2025 End: 01-31-2025 Telephone encounter Kamran Ayon [facility] Ambulatory Telemanagement Comment on above: Anticoagulation Tele phone Fu (INR Home Test Result) Start: 01-23-2025 End: 03-25-2025 Follow-up encounter Carolina Landeros APRN.CNP Work Phone: [facility] Start: 01-21-2025 End: 01-21-2025 ambulatory CAROLINA LNADEROS Facility:[facility] Start: 01-21-2025 End: 01-21-2025 Office outpatient visit 25 minutes Carolina Landeros APRN.BLADE CHANGER Work Phone: [facility] Comment on above: Hyperlipidemia, mixe d (Primary [...] (HCC); Chronic renal disease, stage IV (HCC); penitentiary (current) use of anticoagulants; Obesity, Class II, BMI 35-39.9; Viral conjunctivitis; Seasonal allergic rhinitis, unspecified trigger; Bilateral impacted cerumen Start: 01-08-2025 End: 01-15-2025 Telephone encounter Ruthie Cuevas [facility] Ambulatory Telemanagement Comment on above: Anticoagulation Foll ow Up (Home INR result ) Start: 01-07-2025 End: 01-08-2025 Refill Corrina Lennon APRN.BLADE CHANGER Work Phone: [facility] Comment on above: Refill Request Start: 12-30-2024 End: 12-30-2024 Telephone encounter Twin Cole [facility] Ambulatory Telemanagement Comment on above: Anticoagulation Tele phone Fu (Home INR result) Start: 12-11-2024 End: 12-11-2024 Telephone encounter Jimmy Carrizales [facility] Ambulatory Telemanagement Comment on above: Anticoagulation Tele phone Fu (Home INR) Start: 11-26-2024 End: 11-26-2024 Telephone encounter Twin Cole [facility] Ambulatory Telemanagement Comment on above: Anticoagulation Tele phone Fu (Home INR result) Start: 10-28-2024 End: 10-28-2024 Telephone encounter Alejandro Molina [facility] Ambulatory Telemanagement Comment on above: Anticoagulation Tele phone Fu (Home INR Result ) Start: 10-21-2024 End: 10-21-2024 Telephone encounter Guanakito Reno MD Work Phone: [facility] Comment on above: Patient Update; Rozina ent Question Start: 10-01-2024 End: 10-01-2024 Telephone encounter Twin Cole [facility] Ambulatory Telemanagement Comment on above: Anticoagulation Tele phone Fu (Home INR result) Start: 08-26-2024 End: 08-26-2024 Telephone encounter Alejandro Ulysses [facility] Ambulatory Telemanagement Comment on above: Anticoagulation Tele phone Fu (Home INR Result ) Start: 08-19-2024 End: 08-19-2024 ambulatory Melania Galindo RN [employer] Paralegal Management Comment on above: ACNiels SMITH RN ( Medication Adherence Review per Request of Payor ) Start: 08-16-2024 End: 08-16-2024 Telephone encounter Jimmy Stanley [facility] Start: 08-06-2024 End: 08-06-2024 Office outpatient new 45 minutes Laura Iraheta MD Work Phone: [facility] Comment on above: Bilateral carotid ar jeanen stenosis (Primary Dx); History of carotid endarterectomy Start: 07-30-2024 End: 07-30-2024 ambulatory Josselyn Mayer CORPORATE STRATEGY ANALYST.BLADE CHANGER Work Phone: [facility] [place] Start: 07-30-2024 End: 08-01-2024 Telephone encounter Josselyn Mayer CORPORATE STRATEGY ANALYST.BLADE CHANGER Work Phone: [facility] [place] Comment on above: Planer Off Bearer - O ther Start: 07-25-2024 End: 07-26-2024 Telephone encounter Jimmy Carrizales [facility] Ambulatory Telemanagement Comment on above: Anticoagulation (Pat ient update) Start: 07-23-2024 End: 07-23-[address] ([facility] Start: 07-23-2024 End: 07-23-2024 Subsequent hospital visit by physician [facility] 1 (I-Stat) RAD[facility] Comment on above: Nonrheumatic aortic valve stenosis [I35.0] Start: 07-15-2024 End: 07-15-2024 Orders Only Valerie Brito APRN.CNP Work Phone[facility] Comment on above: Paroxysmal atrial fi brillation (HCC) (Primary Dx); Aortic valve stenosis, etiology of cardiac valve disease unspecified Nonrheumatic aortic valve stenosis (Primary Dx); Paroxysmal atrial fibrillation (HCC) Patient Update Results Start: 07-12-2024 End: 07-12-2024 Telephone encounter Guanakito Reno MD Work Phone: [facility] [place] Start: 07-12-2024 End: 07-15-2024 Patient encounter procedure Guanakito Reno MD Work Phone: [facility] [place] Comment on above: Essential hypertensi on (Primary [...] disease, stage IV (HCC); Mixed dementia (HCC); penitentiary (current) use of anticoagulants; Need for vaccination Essential hypertensi on (Primary Dx) Start: 07-10-2024 End: 07-10-2024 Subsequent hospital visit by physician Ekg/Holter/Event Monitor [place] [facility] Comment on above: Nonrheumatic aortic valve stenosis [I35.0] Start: 07-10-2024 End: 07-10-2024 Patient encounter procedure Cal Mondragon MD Work Phone: [facility] [place] [facility] Comment on above: [...] encounter status Pam Reddy MD Work Phone: [facility] Work Phone: Start: 07-05-2024 End: 07-05-2024 Telephone encounter Annamarie Garcia [facility] Comment on above: Anticoagulation Tele phone Fu Start: 2024 End: 2024 Telephone encounter Guanakito Reno MD Work Phone: [facility] Start: 06-18-2024 End: 06-18-2024 Telephone encounter Jimmy Carrizales [facility] Ambulatory Telemanagement Comment on above: Anticoagulation Tele phone Fu (Home INR) Start: 06-06-2024 End: 06-06-2024 Office outpatient visit 15 minutes Carolina Landeros APRN.BLADE CHANGER Work Phone: [facility] [place] Comment on above: Aortic valve stenosi s, etiology of cardiac valve disease unspecified (Primary Dx); Hypertensive kidney disease with stage 3b chronic kidney disease (HCC); Paroxysmal atrial fibrillation (HCC); Benign prostatic hyperplasia without lower urinary tract symptoms; Anemia, unspecified type Start: 06-05-2024 End: 06-05-2024 Patient encounter procedure Valerie Connelly APRN.BLADE CHANGER Work Phone: [facility] Comment on above: Blood pressure check (Primary Dx); Leg swelling Start: 06-05-2024 End: 06-05-2024 Patient encounter status Valerie Connelly APRN.BLADE CHANGER Work Phone: [facility] Work Phone: Start: 06-03-2024 End: 06-05-2024 ambulatory Guanakito Reno MD Work Phone: [facility] [place] Comment on above: Water pill/ kidney d r # Start: 05-20-2024 Telephone encounter Josselyn Myaer CORPORATE STRATEGY ANALYST.BLADE CHANGER Work Phone: [facility] [place] Comment on above: Planer Off Bearer - O ther Results Start: 05-17-2024 Telephone encounter Dorothy Joshua [facility] Comment on above: Anticoagulation Tele phone Fu Start: 05-06-2024 End: 05-06-2024 Office outpatient visit 15 minutes Corrina Lennon APRN.BLADE CHANGER Work Phone: [facility] [place] Comment on above: Essential hypertensi on (Primary Dx); Hypertensive kidney disease with stage 3 chronic kidney disease, unspecified whether stage 3a or 3b CKD (HCC); Anemia, unspecified type Start: 05-02-2024 End: 05-02-2024 Subsequent hospital visit by physician [facility] Work Phone: Radiology Comment on above: Renal insufficiency [N28.9] Start: 04-24-2024 Telephone encounter [facility] Ambulatory Telemanagement Comment on above: Anticoagulation Tele phone Fu (Home INR) Start: 04-19-2024 Telephone encounter Guanakito Reno MD Work Phone: [facility] [place] Comment on above: Results Start: 04-08-2024 End: 04-08-2024 Office outpatient visit 25 minutes Corrina Lennon APRN.BLADE CHANGER Work Phone: [facility] [place] Comment on [...] Guanakito Reno MD Work Phone: [facility] [place] Comment on above: Results Start: 04-04-2024 Telephone encounter Jimmy Carrizales [facility] Ambulatory Telemanagement Comment on [...] or 3b CKD (HCC); Mixed dementia (HCC); penitentiary (current) use of anticoagulants; Obesity, Class II, [...] Ambulator y Care Management Comment on above: ACNiels SMITH RN ( Medication adherence and suspected condition review per request of payor) Start: 03-07-2024 Telephone encounter Jimmy Carrizales [facility] Ambulatory Telemanagement Comment on above: Anticoagulation Tele phone Fu Start: 02-14-2024 Telephone encounter [facility] Ambulatory Telemanagement Comment on above: Anticoagulation Tele phone Fu (Home INR results ) Start: 01-17-2024 Refill Guanakito Reno MD Work Phone: [facility] [place] Comment on above: Refill Request requesting medicatio n on list Start: 01-15-2024 Telephone encounter Alejandro [facility] Ambulatory Telemanagement Comment on above: Anticoagulation Tele phone Fu (Home INR Result ) Start: 12-22-2023 End: 12-22-2023 Office outpatient visit 15 minutes Carolina Landeros APRN.ANIMAL SERVICES OFFICER Work Phone: [facility] [place] Comment on above: Abrasion of arm, lef t, initial encounter (Primary Dx); Chronic insomnia Start: 12-21-2023 ambulatory Guanakito Reno MD Work Phone: [facility] [place] Comment on above: skin laceration Start: 12-21-2023 Telephone encounter Jimmy Carrizales [facility] Ambulatory Telemanagement Comment on [...] payer) Start: 08-22-2023 Telephone encounter Twin Cole [facility] Ambulatory Telemanagement Comment on above: Anticoagulation Tele phone Fu (Home INR result) Start: 08-16-2023 Telephone encounter Guanakito Reno MD Work Phone: [facility] [place] Comment on above: Results Start: 08-15-2023 Telephone encounter Guanakito Reno MD Work Phone: [facility] [place] Comment on above: Results Start: 08-14-2023 End: 08-14-2023 Patient encounter procedure Guanakito Reno MD Work Phone: [facility] [place] Comment on above: Onychomycosis [...] 07-04-2023 Refill Guanakito Reno MD Work Phone: [facility] [place] Comment on above: Refill Request Start: 2023 ambulatory Lizette Cardenas RN [facility] [place] Comment on above: QI SMITH RN ( Medication Adherence review per request of payer) Start: 05-22-2023 Telephone encounter Alejandro [facility] Ambulatory Telemanagement Comment on above: Anticoagulation Tele phone Fu (Home INR Result ) Start: 04-24-2023 Telephone encounter [facility] Ambulatory Telemanagement Comment on above: Anticoagulation Tele phone Fu (Home INR Result ) Start: 04-19-2023 Refill Guanakito Reno MD Work Phone: [facility] [place] Comment on above: Refill Request Start: 03-28-2023 Telephone encounter Twin Cole [facility] Ambulatory Telemanagement Comment on above: Anticoagulation Tele phone Fu (Home INR result) Start: 02-13-2023 End: 02-13-2023 Patient encounter procedure Pam Reddy MD Work Phone: Cardiology Comment on above: Syncope, unspecified syncope type (Primary Dx); Aortic valve disorder Start: 02-06-2023 End: 02-06-2023 Patient encounter procedure Guanakito Reno MD Work Phone: [facility] [place] Comment on above: Essential [...] 01-16-2023 Refill Guanakito Reno MD Work Phone: [facility] [place] Comment on above: Refill Request Start: 01-09-2023 Telephone encounter [facility] Ambulatory Telemanagement Comment on above: Anticoagulation (INR Result) Start: 12-19-2022 Telephone encounter Alejandro Ulysses [facility] Ambulatory Telemanagement Comment on above: Anticoagulation Tele phone Fu (Home INR Result ) Start: 11-28-2022 Telephone encounter Alejandro Ulysses [facility] Ambulatory Telemanagement Comment on above: Anticoagulation Tele phone Fu (Home INR Result ) Start: 11-18-2022 Telephone encounter Kamran Ayon [facility] Ambulatory Telemanagement Comment on above: Anticoagulation Tele phone Fu Start: 11-04-2022 Telephone encounter Kamran Ayon h P harmacy Ambulatory Telemanagement Comment on above: Anticoagulation Tele phone Fu (INR Home Test Result) Start: 11-01-2022 Telephone encounter Twin Cole [facility] Ambulatory Telemanagement Comment on above: Anticoagulation Tele phone Fu (Home INR expected) Start: 10-19-2022 Telephone encounter Ruthiemike [facility] Ambulatory Telemanagement Comment on above: Anticoagulation Tele phone Fu (Home INR result) Start: 10-04-2022 End: 10-04-2022 Patient encounter procedure Alondra Prescott DO Work Phone: Vascular Surgery Comment on above: Bilateral carotid ar jeanne stenosis (Primary Dx) Start: 09-23-2022 Refill Guanakito Reno MD Work Phone: [facility] Comment on above: Orders; Refill Reque st Start: 09-21-2022 Telephone encounter Ruthie Cuevas [facility] Ambulatory Telemanagement Comment on above: Anticoagulation Tele phone Fu (Home INR result expected) Start: 09-07-2022 ambulatory Lizette Cardenas RN [facility] Comment on above: QI SMITH RN ( Medication Adherence review at request of payer) Start: 08-22-2022 [facility]phone encounter [facility] Comment on above: Anticoagulation (INR result) Start: 08-15-2022 End: 08-15-2022 Patient encounter procedure Pam Reddy MD Work Phone: Cardiology Comment on above: Obesity, Class II, B MS 35-39.9 (Primary Dx); Paroxysmal atrial fibrillation (HCC); Nonrheumatic aortic valve stenosis; Aortic valve disorder Start: 08-01-2022 Telephone encounter [facility] Comment on above: Anticoagulation Tele phone Fu (Home INR Result) Start: 07-22-2022 Refill Guanakito Reno MD Work Phone: [facility] Comment on above: Refill Request Start: 2022 Telephone encounter [facility] Comment on above: Anticoagulation (INR result ) Start: 06-14-2022 ambulatory Nirmala Lim MA [facility] Comment on above: Population Health Na vigation Outreach ([facility] care gaps) Start: 06-06-2022 Telephone encounter [facility] Comment on above: Anticoagulation (Gabrielle e INR) Start: 05-19-2022 Refill Guanakito Reno MD Work Phone: [facility] Comment on above: Refill Request Start: 05-16-2022 Telephone encounter [facility] Comment on above: Anticoagulation Tele phone Fu (Home INR Result) Start: 04-25-2022 Telephone encounter Val Oliver [facility] Comment on [...] ) Start: 02-17-2022 Telephone encounter Jazmyn Garcia [facility] Ambulatory Telemanagement Comment on above: Anticoagulation Tele phone Fu Start: 02-08-2022 Telephone encounter Twin Cole [facility] Ambulatory Telemanagement Comment on above: Anticoagulation Tele phone Fu (Home INR result) Start: 01-25-2022 Telephone encounter [facility] Amb[facility] Telemanagement Comment on above: Anticoagulation Tele phone Fu (Home INR result) Start: 01-19-2022 End: 01-19-2022 Patient encounter procedure Guanakito Reno MD Work Phone: [facility] Comment on above: Essential hypertensi [...] Tele phone Fu Start: 06-07-2018 Ambulatory [facility] Facility :[facility] Start: 11-24-2017 End: 11-24-2017 [facility] Facility:[facility] Procedures Date Procedure Procedure Detail [...] Velasquez with bovine patch angioplasty, 04/17/2014 @ [facility] History of carotid endarterectomy History of carotid endarterectomy Guanakito Reno MD Work Phone: History of carotid endarterectomy History of carotid endarterectomy Laura Iraheta MD Work Phone: Plan of Treatment Date Care Activity Detail Author Start: 04-22-2031 Urine microalbumin profile [facility] Start: 01-21-2026 Diabetic foot examination Diabetic Foot Exam [facility] Start: 01-21-2026 Hepatitis B surface antibody level LDL Cholesterol [facility] Start: 08-06-2025 End: 09-05-2025 US Carotid arteries - bilateral US CAROTID BILATERAL Radiology Routine Bilateral carotid artery stenosis History of carotid endarterectomy Expected: 08/06/2025 (Approximate), Expires: 09/05/2025 [facility] Work Phone: Comment on above: Expected: 08/06/2025 (Approximate), Expi res: 09/05/2025 Start: 07-23-2025 End: 07-23-2025 Patient encounter procedure 07/23/2025 3:20 PM EDT Office Visit [facility] [address] [place] [address] Guanakito Reno MD [address] [place] [address] 6 month exam [facility] [place] Comment on above: 6 month exam Start: 07-23-2025 Hemoglobin A1c measurement HbA1C [facility] Start: 07-12-2025 Covid-19 Vaccine ( season) Covid-19 Vaccine () [facility] Comment on above: Postponed from 01/09/2025 (Declined at t his time) Start: 07-12-2025 Hepatitis B surface antibody level LDL Cholesterol [facility] Start: 06-16-2025 Influenza vaccination [facility] Start: 05-06-2025 Annual PCP Team Chronic Disease Visit Annual PCP Team Chronic Disease Visit [facility] Start: 05-06-2025 BP Controlled (<130/80) BP Controlled (<130/80) [facility] in Start: 05-02-2025 Plain X-ray of shoulder Shoulder min 2 Views [facility] Start: 05-02-2025 XR Shoulder GE 2 Views [facility] Start: 04-19-2025 Complete blood count Hemoglobin/Hematocrit [facility] Start: 04-19-2025 Creatinine measurement Serum Creatinine [facility] Start: 04-08-2025 Annual PCP Team Chronic Disease Visit Annual PCP Team Chronic Disease Visit [facility] Start: 04-08-2025 BP Controlled (<130/80) BP Controlled (<130/80) [facility] in Start: 04-04-2025 Complete blood count Hemoglobin/Hematocrit [facility] Start: 04-04-2025 Creatinine measurement Serum Creatinine [facility] Start: 03-26-2025 Annual PCP Team Chronic Disease Visit Annual PCP Team Chronic Disease Visit [facility] Start: 03-26-2025 BP Controlled (<130/80) BP Controlled (<130/80) [facility] in Start: 03-26-2025 Covid-19 Vaccine () Covid-19 Vaccine () [facility] Comment on above: Postponed from 12/14/2023 (Declined at t his time) Start: 03-26-2025 Shingrix Vaccine (1 of 2) Shingrix Vaccine (1 of 2) [facility] Comment on above: Postponed from 1993 (Declined at t his time) Start: 03-25-2025 BP Controlled (<130/80) BP Controlled (<130/80) [facility] in Start: 03-25-2025 Complete blood count Hemoglobin/Hematocrit [facility] Start: 03-25-2025 Creatinine measurement Serum Creatinine [facility] Start: 01-21-2025 End: 01-21-2025 Patient encounter procedure 01/21/2025 3:40 PM EDT Office Visit [facility] [place] [address] [place] [address] Carolina Landeros APRN.BLADE CHANGER [address] [place] [address] 6 month follow up [facility] Comment on above: 6 month follow up Start: 01-21-2025 End: 04-22-2025 CBC W Auto Differential panel - Blood [facility] Comment on above: Expected: 01/21/2025, Expires: Start: 01-21-2025 End: 04-22-2025 Cobalamin (Vitamin B12) [Mass/volume] in Serum or Plasma [facility] Comment on above: Expected: 01/21/2025, Expires: Start: 01-21-2025 End: 04-22-2025 Comprehensive metabolic 2000 panel - Serum or Plasma [facility] Work Phone: Comment on above: Expected: 01/21/2025, Expires: Start: 01-21-2025 End: 04-22-2025 Hemoglobin A1c in Blood [facility] Comment on above: Expected: 01/21/2025, Expires: Start: 01-21-2025 End: 04-22-2025 LIPID PANEL, NONFASTING [facility] Comment on above: Expected: 01/21/2025, Expires: Start: 01-21-2025 End: 04-22-2025 Magnesium [Mass/volume] in Serum or Plasma [facility] Comment on above: Expected: 01/21/2025, Expires: Start: 01-13-2025 End: 01-13-2025 Patient encounter procedure 01/13/2025 10:40 AM EDT [facility] [address] [place] [address] Guanakito Reno MD [address] [facility] [place] [address] 6 month follow up [facility] Comment on above: 6 month follow up Start: 01-09-2025 Hemoglobin A1c measurement HbA1C [facility] Start: 12-21-2024 BP Controlled (<130/80) BP Controlled (<130/80) [facility] Start: 10-16-2024 Advance Directive Discussion Advance Directive Discussion [facility] Start: 10-16-2024 Medicare Advantage Annual Wellness Visit Medicare [facility] Annual Wellness Visit [facility] Start: 10-04-2024 Hemoglobin A1c measurement HbA1C [facility] Start: 08-14-2024 3 comp foot exam completed Diabetic Foot Exam [facility] Start: 08-14-2024 Annual PCP Team Chronic Disease Visit Annual PCP Team Chronic Disease Visit [facility] Start: 08-14-2024 BP Controlled (<130/80) BP Controlled (<130/80) [facility] Start: 08-14-2024 Complete blood count Hemoglobin/Hematocrit [facility] Start: 08-14-2024 Creatinine measurement Serum Creatinine [facility] Start: 08-14-2024 Diabetic foot examination Diabetic Foot Exam [facility] Start: 08-14-2024 Hemoglobin/Hematocrit Hemoglobin/Hematocrit [facility] Start: 08-14-2024 Hepatitis B surface antibody level LDL Cholesterol [facility] Start: 08-14-2024 Hepatitis B Vaccine (1 of 3 - Risk 3-dose series) Hepatitis B Vaccine (1 of 3 - Risk 3-dose series) [facility] Comment on above: Postponed from 2003 (Declined at t his time) Start: 08-14-2024 RSV Vaccine (1 - 1-dose 60+ series) RSV Vaccine (1 - 1-dose 60+ series) [facility] Comment on above: Postponed from 2003 (Declined at t his time) Start: 08-14-2024 RSV Vaccine (1 - 1-dose 75+ series) RSV Vaccine (1 - 1-dose 75+ series) [facility] Comment on above: Postponed from 2018 (Declined at t his time) Start: 08-14-2024 Serum Creatinine Serum Creatinine [facility] Start: 08-06-2024 End: 08-06-2024 Patient encounter procedure 08/06/2024 1:00 PM EDT Office Visit [facility] [address] [place], [place] [id number] Laura Iraheta MD [address] [facility] [address] [place] [address] Referral from Josselyn Mayer - carotid stenosis 05/02/24 Carotid US [facility] Comment on above: Referral from Josselyn Mayer - carotid s tenosis 05/02/24 Carotid US Start: 07-29-2024 End: 07-29-2024 ambulatory 07/29/2024 11:15 AM EDT Results Only [facility] [address] [place] [address] [facility] Start: 07-23-2024 End: 07-23-2024 Admission to same day surgery center 07/23/2024 10:00 AM EDT - 07/23/2024 11:30 AM EDT Surgery [facility] [address] [place] [address] Pam Reddy MD [address], [address] [place], [place] [id number] CORONARY CATH RIGHT/LEFT HEART ANGIO INTRAPROCEDURAL INJECT IMAGING SUPERVISIO/INTERPRETATIO N [facility] Comment on above: CORONARY CATH RIGHT/LEFT HEART ANGIO INT RAPROCEDURAL INJECT IMAGING SUPERVISIO/INTERPRETATION Start: 07-23-2024 End: 07-23-2024 R & l hrt cath winjx hrt art& l ventr img CORONARY CATH RIGHT/LEFT HEART ANGIO INTRAPROCEDURAL INJECT IMAGING SUPERVISIO/INTERPRETATIO N Valvular heart disease 07/23/2024 10:00 AM EDT [facility] Start: 07-23-2024 Subsequent hospital visit by physician 07/23/2024 10:00 AM EDT Hospital Encounter [facility] [address] [place] [address] Pam Reddy MD [address], [address] [place], [place] [id number] Valvular heart disease [I38] [facility] Comment on above: Valvular heart disease [I38] Start: 07-23-2024 End: 07-23-2024 Patient encounter procedure 07/23/2024 7:30 AM EDT Appointment [facility] [place] [address] 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 [...] atrial fibrillation (HCC) Expected: 07/15/2024, Expires: 10/14/2024 [facility] Work Phone: Comment on above: Expected: 07/15/2024, Expires: Start: 07-12-2024 End: 10-11-2024 CBC W Auto Differential panel - Blood [facility] Comment on above: Expected: 07/12/2024, Expires: 4 Start: 07-12-2024 End: 10-11-2024 Comprehensive metabolic 2000 panel - Serum or Plasma [facility] Comment on above: Expected: 07/12/2024, Expires: Start: 07-12-2024 End: 10-11-2024 Hemoglobin A1c in Blood [facility] Work Phone: Comment on above: Expected: 07/12/2024, Expires: Start: 07-12-2024 End: 10-11-2024 LIPID PANEL, NONFASTING [facility] Comment on above: Expected: 07/12/2024, Expires: Start: 07-12-2024 End: 07-12-2024 Patient encounter procedure 07/12/2024 11:20 AM EDT Office Visit [facility] [place] [address] [facility] [place] [address] Guanakito Reno MD [address] [facility] [place] [address] 2 month follow up- stool sample,kidney and meds [facility] [place] Comment on above: 2 month follow up- stool sample,kidney a nd meds Start: 07-10-2024 End: 10-09-2024 Basic metabolic 2000 panel - Serum or Plasma BASIC METABOLIC PANEL Lab Routine Nonrheumatic aortic valve stenosis Expected: 07/10/2024, Expires: 10/09/2024 [facility] Comment on above: Expected: 07/10/2024, Expires: Start: 07-10-2024 End: 10-09-2024 CBC panel - Blood by Automated count COMPLETE BLOOD COUNT Lab Routine Nonrheumatic aortic valve stenosis Expected: 07/10/2024, Expires: 10/09/2024 [facility] Comment on above: Expected: 07/10/2024, Expires: Start: 07-10-2024 End: 10-09-2024 Natriuretic peptide.B prohormone N-Terminal [Mass/volume] in Serum or Plasma NT PRO BNP Lab Routine Nonrheumatic aortic valve stenosis Dyspnea on exertion Expected: 07/10/2024, Expires: 10/09/2024 [facility] Comment on above: Expected: 07/10/2024, Expires: Start: 07-10-2024 End: 10-09-2024 PT panel - Platelet poor plasma by Coagulation assay PROTHROMBIN TIME Lab Routine Nonrheumatic aortic valve stenosis Expected: 07/10/2024, Expires: 10/09/2024 [facility] Comment on above: Expected: 07/10/2024, Expires: Start: 07-10-2024 End: 07-10-2024 Patient encounter procedure [facility] Comment on above: Valve Clinic- Initial Visit- 5M Walk,EKG ,KCCQ Start: 06-16-2024 Covid-19 Vaccine ( season) Covid-19 Vaccine ( season) [facility] Start: 06-16-2024 Covid-19 Vaccine ( season) Covid-19 Vaccine () [facility] Start: 06-16-2024 Influenza vaccination Influenza Vaccine (#1) [facility] Start: 06-06-2024 End: 06-06-2024 Patient encounter procedure 06/06/2024 11:20 AM EDT Office Visit [facility] [place] [address] [place] [address] Carolina Landeros APRN.BLADE CHANGER [address] [place], [place] [phone] Urgent care follow up [facility] [place] Comment on above: Urgent care follow up Start: 05-06-2024 End: 05-06-2024 Patient encounter procedure 05/06/2024 5:40 PM EDT [facility] [address] [place] [address] Corrina Lennon APRN.BLADE CHANGER [address] [place] [address] 1 month follow up [facility] [place] Comment on above: 1 month follow up Start: 05-02-2024 End: 05-02-2024 Patient encounter procedure Radiology Comment on above: Renal insufficiency [N28.9] History of carotid e ndarterectomy [Z98.890] Syncope, unspecified syncope type [R55]; Aortic valve disorder [I35.9] Start: 04-08-2024 End: 04-08-2024 Patient encounter procedure 04/08/2024 3:00 PM EDT Office Visit [facility] [place] [address] [facility] [place] [address] Corrina Lennon APRN.BLADE CHANGER [address] [place] [address] 2 w f/u [facility] [place] Comment on above: 2 w f/u Start: 04-08-2024 End: 03-25-2025 Echocardiography ECHO Cardiology Routine Syncope, unspecified syncope type Aortic valve disorder Expected: 04/08/2024, Expires: 03/25/2025 [facility] Comment on above: Expected: 04/08/2024, Expires: 5 Start: 04-05-2024 End: 07-05-2024 Basic metabolic 2000 panel - Serum or Plasma BASIC METABOLIC PANEL Lab Routine CKD (chronic kidney disease) stage 4, 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/min (HCC) Anemia, unspecified type Expected: 04/05/2024, Expires: 07/05/2024 [facility] Comment on above: Expected: 04/05/2024, Expires: 4 Start: 04-05-2024 End: 07-05-2024 CBC W Auto Differential panel - Blood COMPLETE BLOOD COUNT AND DIFFERENTIAL Lab Routine CKD (chronic kidney disease) stage 4, 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/min (HCC) Anemia, unspecified type Expected: 04/05/2024, Expires: 07/05/2024 [facility] Comment on above: Expected: 04/05/2024, Expires: 4 Start: 03-26-2024 End: 03-26-2024 Patient encounter procedure 03/26/2024 4:40 PM EDT Office Visit [facility] [address] [place] [address] Guanakito Reno MD [address] [place] [address] 3 month f/u [facility] [place] Comment on above: 3 month f/u Start: 03-26-2024 End: 06-25-2024 Basic metabolic 2000 panel - Serum or Plasma BASIC METABOLIC PANEL Lab Routine Renal insufficiency Expected: 03/26/2024, Expires: 06/25/2024 [facility] Comment on above: Expected: 03/26/2024, Expires: 4 Start: 03-26-2024 End: 03-26-2025 CBC W Auto Differential panel - Blood COMPLETE BLOOD COUNT AND DIFFERENTIAL Lab Routine Anemia, unspecified type Expected: 03/26/2024, Expires: 03/26/2025 [facility] Comment on above: Expected: 03/26/2024, Expires: Start: 03-26-2024 End: 03-26-2025 Cobalamin (Vitamin B12) [Mass/volume] in Serum or Plasma VITAMIN B12 Lab Routine Anemia, unspecified type Expected: 03/26/2024, Expires: 03/26/2025 [facility] Comment on above: Expected: 03/26/2024, Expires: Start: 03-26-2024 End: 03-26-2025 Ferritin [Mass/volume] in Serum or Plasma FERRITIN Lab Routine Anemia, unspecified type Expected: 03/26/2024, Expires: 03/26/2025 [facility] Comment on above: Expected: 03/26/2024, Expires: Start: 03-26-2024 End: 03-26-2025 Folate [Mass/volume] in Serum or Plasma FOLATE, SERUM Lab Routine Anemia, unspecified type Expected: 03/26/2024, Expires: 03/26/2025 [facility] Comment on above: Expected: 03/26/2024, Expires: Start: 03-26-2024 End: 06-25-2024 Hemoglobin A1c in Blood HEMOGLOBIN A1C Lab Routine Type 2 diabetes mellitus with stage 3 chronic kidney disease, without long-term current use of insulin, unspecified whether stage 3a or 3b CKD (HCC) Expected: 03/26/2024, Expires: 06/25/2024 [facility] Comment on above: Expected: 03/26/2024, Expires: 4 Start: 03-26-2024 End: 03-26-2025 Hemoglobin.gastrointestin al.lower [Presence] in Stool by Immunoassay IMMUNOCHEMICAL FECAL OCCULT BLOOD TEST Lab Routine Anemia, unspecified type Expected: 03/26/2024, Expires: 03/26/2025 [facility] Comment on above: Expected: 03/26/2024, Expires: Start: 03-26-2024 End: 03-26-2025 Iron and Iron binding capacity panel - Serum or Plasma IRON AND TIBC Lab Routine Anemia, unspecified type Expected: 03/26/2024, Expires: 03/26/2025 [facility] Comment on above: Expected: 03/26/2024, Expires: Start: 03-25-2024 End: 03-25-2024 Patient encounter procedure 03/25/2024 2:40 PM EDT Office Visit Cardiology [address] [place] [id number] Pam Reddy MD [address] [facility], [address] [place] [address] 1 yr f/u Cardiology Comment on above: 1 yr f/u Start: 02-14-2024 BP CONTROLLED (<130/80) BP CONTROLLED (<130/80) [facility] Start: 02-13-2024 Hemoglobin A1c measurement HbA1C [facility] Start: 02-13-2024 Hemoglobin A1c/Hemoglobin.total in Blood HbA1C [facility] Start: 02-07-2024 3 comp foot exam completed DIABETIC FOOT EXAM [facility] Start: 02-07-2024 ANNUAL PCP TEAM CHRONIC DISEASE VISIT ANNUAL PCP TEAM CHRONIC DISEASE VISIT [facility] Start: 02-07-2024 BP CONTROLLED (<130/80) BP CONTROLLED (<130/80) [facility] Start: 02-07-2024 SHINGRIX VACCINE (1 of 2) SHINGRIX VACCINE (1 of 2) [facility] Comment on above: Postponed from 1993 (Insurance Cov erage) Start: 12-14-2023 Covid-19 Vaccine () Covid-19 Vaccine () [facility] Start: 10-16-2023 Advance Directive Discussion Advance Directive Discussion [facility] Start: 10-04-2023 BP CONTROLLED (<130/80) BP CONTROLLED (<130/80) [facility] Start: 08-15-2023 End: 08-15-2024 Basic metabolic 2000 panel - Serum or Plasma BASIC METABOLIC PNL Lab Routine Renal insufficiency Expected: 08/15/2023, Expires: 08/15/2024 [facility] Work Phone: Comment on above: Expected: 08/15/2023, Expires: 4 Start: 08-15-2023 BP CONTROLLED (<130/80) BP CONTROLLED (<130/80) [facility] Start: 08-15-2023 End: 11-14-2023 Urinalysis complete panel - Urine URINALYSIS, WITH MICROSCOPIC Lab Routine Renal insufficiency Expected: 08/15/2023, Expires: 11/14/2023 [facility] Work Phone: Comment on above: Expected: 08/15/2023, Expires: 4 Start: 06-16-2023 Covid-19 Vaccine () Covid-19 Vaccine () [facility] Start: 06-16-2023 Influenza vaccination [facility] Start: 06-08-2023 COVID-19 VACCINE (5 - Moderna series) COVID-19 VACCINE (5 - Moderna series) [facility] Start: 03-29-2023 BP CONTROLLED (<130/80) BP CONTROLLED (<130/80) [facility] Start: 02-20-2023 End: 02-14-2024 Echocardiography ECHO Cardiology Routine Syncope, unspecified syncope type Aortic valve disorder Expected: 02/20/2023, Expires: 02/14/2024 [facility] Work Phone: Comment on above: Expected: 02/20/2023, Expires: 4 Start: 02-06-2023 End: 04-08-2023 ALBUMIN/CREAT RATIO RND UR ALBUMIN/CREAT RATIO RND UR Lab Routine Type 2 diabetes mellitus with stage 3 chronic kidney disease, without long-term current use of insulin, unspecified whether stage 3a or 3b CKD (HCC) Expected: 02/06/2023, Expires: 04/08/2023 [facility] Work Phone: Comment on above: Expected: 02/06/2023, Expires: 3 Start: 02-06-2023 End: 04-08-2023 CBC W Auto Differential panel - Blood CBC + DIFF Lab Routine Type 2 diabetes mellitus with stage 3 chronic kidney disease, without long-term current use of insulin, unspecified whether stage 3a or 3b CKD (HCC) Expected: 02/06/2023, Expires: 04/08/2023 [facility] Work Phone: Comment on above: Expected: 02/06/2023, Expires: Start: 02-06-2023 End: 04-08-2023 Comprehensive metabolic 2000 panel - Serum or Plasma COMP METABOLIC PANEL Lab Routine Type 2 diabetes mellitus with stage 3 chronic kidney disease, without long-term current use of insulin, unspecified whether stage 3a or 3b CKD (HCC) Expected: 02/06/2023, Expires: 04/08/2023 [facility] Work Phone: Comment on above: Expected: 02/06/2023, Expires: Start: 02-06-2023 End: 04-08-2023 Hemoglobin A1c in Blood HGB A1C Lab Routine Type 2 diabetes mellitus with stage 3 chronic kidney disease, without long-term current use of insulin, unspecified whether stage 3a or 3b CKD (HCC) Expected: 02/06/2023, Expires: 04/08/2023 [facility] Work Phone: Comment on above: Expected: 02/06/2023, Expires: 3 Start: 02-06-2023 End: 04-08-2023 Lipid 1996 panel - Serum or Plasma LIPID PANEL BASIC Lab Routine Type 2 diabetes mellitus with stage 3 chronic kidney disease, without long-term current use of insulin, unspecified whether stage 3a or 3b CKD (HCC) Expected: 02/06/2023, Expires: 04/08/2023 [facility] Work Phone: Comment on above: Expected: 02/06/2023, Expires: 3 Start: 01-19-2023 ANNUAL PCP TEAM CHRONIC DISEASE VISIT ANNUAL PCP TEAM CHRONIC DISEASE VISIT [facility] Start: 01-19-2023 BP CONTROLLED (<130/80) BP CONTROLLED (<130/80) [facility] Start: 01-18-2023 HEMOGLOBIN/HEMATOCRIT HEMOGLOBIN/HEMATOCRIT [facility] Start: 04-05-2023 Hepatitis B screening URINE ALBUMIN:CREATININE RATIO [facility] Start: 01-18-2023 SERUM CREATININE SERUM CREATININE [facility] Start: 12-21-2022 Hepatitis B surface antibody level LDL CHOLESTEROL [facility] Start: 10-16-2022 ADVANCE DIRECTIVE DISCUSSION ADVANCE DIRECTIVE DISCUSSION [facility] Start: 08-22-2022 End: 08-15-2023 Echocardiography ECHO Cardiology Routine Nonrheumatic aortic valve stenosis Expected: 08/22/2022, Expires: 08/15/2023 [facility] Work Phone: Comment on above: Expected: 08/22/2022, Expires: 3 Start: 07-20-2022 Hemoglobin A1c/Hemoglobin.total in Blood HBA1C [facility] Start: 06-16-2022 Influenza vaccination [facility] Start: 04-12-2022 COVID-19 VACCINE (4 - Booster for Moderna series) COVID-19 VACCINE (4 - Booster for Moderna series) [facility] Start: 02-18-2022 End: 04-20-2022 Basic metabolic 2000 panel - Serum or Plasma BASIC METABOLIC PNL Lab Routine Essential hypertension with goal blood pressure less than 140/90 Expected: 02/18/2022, Expires: 04/20/2022 [facility] Work Phone: Comment on above: Expected: 02/18/2022, Expires: 2 Start: 02-07-2022 COVID-19 VACCINE (4 - Booster for Moderna series) COVID-19 VACCINE (4 - Booster for Moderna series) [facility] Start: 10-16-2021 ADVANCE DIRECTIVE DISCUSSION ADVANCE DIRECTIVE DISCUSSION [facility] Start: 01-18-2020 3 comp foot exam completed DIABETIC FOOT EXAM [facility] Start: 12-05-2019 Glaucoma screening Dilated Retinal Exam [facility] Start: 12-05-2019 Hepatitis C antibody, confirmatory test DILATED RETINAL EXAM [facility] Start: 2018 RSV Vaccine (1 - 1-dose 75+ series) RSV Vaccine (1 - 1-dose 75+ series) [facility] Start: 2003 Hepatitis B Vaccine (1 of 3 - Risk 3-dose series) Hepatitis B Vaccine (1 of 3 - Risk 3-dose series) [facility] Start: 1993 SHINGRIX VACCINE (1 of 2) SHINGRIX VACCINE (1 of 2) [facility] Start: 1961 BP Controlled (<130/80) BP Controlled (<130/80) [facility] Start: 1961 HEPATITIS C SCREENING HEPATITIS C SCREENING [facility] Start: 1949 PNEUMOCOCCAL: 65+ (1 - PCV) PNEUMOCOCCAL: 65+ (1 - PCV) [facility] End: 08-09-2025 CTA Abdominal vessels and Pelvis vessels W contrast IV CTA ABD/PEL W IVCON Radiology Routine Nonrheumatic aortic valve stenosis Encounter for preprocedural cardiovascular examination 1 Occurrences starting 07/10/2024 until 08/09/2025 [facility] Work Phone: Comment on above: 1 Occurrences starting 07/10/2024 until 08/09/2025 End: 07-23-2024 CTA Abdominal vessels and Pelvis vessels W contrast IV [facility] Work Phone: Comment on above: 1 Occurrences starting 07/23/2024 until 07/23/2024 End: 08-09-2025 CTA Chest vessels WO and W contrast IV CTA CHEST (GATED) WO/W IVCON Radiology Routine Nonrheumatic aortic valve stenosis Encounter for preprocedural cardiovascular examination 1 Occurrences starting 07/10/2024 until 08/09/2025 [facility] Comment on above: 1 Occurrences starting 07/10/2024 until 08/09/2025 End: 07-23-2024 CTA Chest vessels WO and W contrast IV [facility] Comment on above: 1 Occurrences starting 07/23/2024 until 07/23/2024 ECG COMPLETE ECG COMPLETE ECG Routine Syncope, unspecified syncope type Aortic valve disorder Paroxysmal atrial fibrillation (HCC) Ordered: 03/21/2024 [facility] Work Phone: Comment on above: Ordered: 03/21/2024 End: 07-10-2025 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 ECG Routine Nonrheumatic aortic valve stenosis 1 Occurrences starting 07/10/2024 until 07/10/2025 [facility] Comment on above: 1 Occurrences starting 07/10/2024 until 07/10/2025 End: 07-10-2024 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 ECG Routine Nonrheumatic aortic valve stenosis 1 Occurrences starting 07/10/2024 until 07/10/2024 [facility] Work Phone: Comment on above: 1 Occurrences starting 07/10/2024 until 07/10/2024 Hemoglobin.tony velez al.lower [Presence] in Stool by Immunoassay IMMUNOCHEMICAL FECAL OCCULT BLOOD TEST Lab Routine CKD (chronic kidney disease) stage 4, 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/min ([facility]) Anemia, unspecified type Ordered: 04/05/2024 [facility] Work Phone: Comment on above: Ordered: 04/05/2024 Hemoglobin.tony velez al.lower [Presence] in Stool by Immunoassay IMMUNOCHEMICAL FECAL OCCULT BLOOD TEST Lab Routine Screen for colon cancer Ordered: 2024 [facility] Work Phone: Comment on above: Ordered: 2024 OUTSIDE VENDOR CARDI AC OUTPATIENT EXTENDED RHYTHM RECORDING (WITHOUT TELEMETRY) OUTSIDE VENDOR CARDIAC OUTPATIENT EXTENDED RHYTHM RECORDING (WITHOUT TELEMETRY) Holter Routine Syncope, unspecified syncope type Ordered: 02/13/2023 [facility] Work Phone: Comment on above: Ordered: 02/13/2023 Removal impacted cer umen irrigation/lvg unilat AMBULATORY EAR LAVAGE/IRRIGATION Procedures Routine Bilateral impacted cerumen Ordered: 01/21/2025 [facility] Comment on above: Ordered: 01/21/2025 End: 03-26-2025 US Carotid arteries - bilateral US CAROTID ARTERIES GRAY [facility] LAB Vascular Lab Routine History of carotid endarterectomy 1 Occurrences starting 03/26/2024 until 03/26/2025 [facility] Work Phone: Comment on above: 1 Occurrences starting 03/26/2024 until 03/26/2025 End: 03-16-2023 US CAROTID ARTERIES GRAY VAS LAB US CAROTID ARTERIES GRAY VAS LAB Vascular Lab Routine Bilateral carotid artery stenosis 1 Occurrences starting 03/18/2022 until 03/16/2023 [facility] Work Phone: Comment on above: 1 Occurrences starting 03/18/2022 until 03/16/2023 End: 10-04-2023 US CAROTID ARTERIES GRAY VAS LAB US CAROTID ARTERIES GRAY VAS LAB Vascular Lab Routine Bilateral carotid artery stenosis 1 Occurrences starting 10/04/2022 until 10/04/2023 [facility] Work Phone: Comment on above: 1 Occurrences starting 10/04/2022 until 10/04/2023 End: 04-25-2025 US Kidney - bilateral and Urinary bladder US KIDNEY/BLADDER Radiology Routine Renal insufficiency 1 Occurrences starting 03/26/2024 until 04/25/2025 [facility] Comment on above: 1 Occurrences starting 03/26/2024 until 04/25/2025 [facility] Immunizations Immunization Date Immunization Notes Care Provider [facility] 07-12-2024 COVID-19 vaccine, ag e 12+ yr (Adaptive TCR-PolarizonicsNTHALSCION COMIRNATY) Guanakito Reno MD Work Phone: [facility] 07-12-2024 influenza, high dose seasonal, preservative-free Guanakito Reno MD Work Phone: [facility] 07-12-2024 influenza virus vacc ine, unspecified formulation Guanakito Reno MD Work Phone: [facility] 08-14-2023 COVID-19 vaccine, ag e 12+ yr, season (NodePrimeNTECH) Guanakito Reno MD Work Phone: [facility] 08-14-2023 influenza (HD-IIV4) vaccine, age 65+ yr, high dose, quadrivalent, PF (FLUZONE HIGH-DOSE) Guanakito Reno MD Work Phone: [facility] 08-14-2023 influenza virus vacc ine, unspecified formulation Ruthie Denisemanuel [facility] 02-06-2023 COVID-19 vaccine, ag e 12+ yr, bivalent (Aptos IndustriesBIONTECH) Guanakito Reno MD Work Phone: [facility] 12-13-2021 COVID-19 vaccine, ag e 12+ yr (PFIZER-BIONTECH - YANES TOP) Guanakito Reno MD Work Phone: [facility] 04-22-2021 tetanus and diphther ia toxoids, adsorbed, preservative free, for adult use (5 Lf of tetanus toxoid and 2 Lf of diphtheria toxoid) Guanakito Reno MD Work Phone: [facility] 02-16-2021 COVID-19 vaccine, fu ll dose (MODERNA) Guanakito Reno MD Work Phone: [facility] Work Phone: 01-19-2021 COVID-19 vaccine, fu ll dose (MODERNA) Guanakito Reno MD Work Phone: [facility] Work Phone: 07-18-2019 influenza, high dose seasonal, preservative-free Guanakito Reno MD Work Phone: [facility] Work Phone: 07-18-2019 influenza virus vacc ine, unspecified formulation Lizette Cardenas RN [facility] 09-15-2017 influenza, high dose seasonal, preservative-free Guanakito Reno MD Work Phone: [facility] 08-11-2016 influenza, high dose seasonal, preservative-free Guanakito Reno MD Work Phone: [facility] 08-11-2016 pneumococcal polysaccharide vaccine, 23 valent Guanakito Reno MD Work Phone: [facility] 08-10-2015 influenza, high dose seasonal, preservative-free Guanakito Reno MD Work Phone: [facility] 04-09-2015 pneumococcal conjuga te vaccine, 13 valent Guanakito Reno MD Work Phone: [facility] 10-21-2013 influenza virus vacc ine, unspecified formulation Guanakito Reno MD Work Phone: [facility] 08-08-2012 influenza virus vacc ine, unspecified formulation Guanakito Reno MD Work Phone: [facility] Work Phone: 10-12-2005 pneumococcal polysaccharide vaccine, 23 valent Guanakito Reno MD Work Phone: [facility] Work Phone: 12-02-2003 diphtheria and tetan us toxoids, adsorbed for pediatric use Guanakito Reno MD Work Phone: [facility] Work Phone: Payers Date Payer Category Payer Self-pay 2025 Unknown [id number] 2019 Medicare UHC AARP MEDICAR E UHC AARP MEDICARE HMO [id number] 2019-Present [phone] [address] [address] [place] [address] [facility] [id number] 2019 Medicare UHC AAR MEDICAR E UHC AARP MEDICARE HMO [id number] 2019-Present [phone] [address] [address] [place] [address] O [id number] 2019 Medicare (Managed Care) UHC AARP MEDICARE HMO [id number] 2019 Medicare [id number] 2009 Unknown [id number] 2008 Medicare [id number] Medicare [id number] Unknown [id number]. 462 Unknown [id number] 2.16.840.1.312927.3.579.2. 462 Unknown [id number] 2.16.840.1.570806.3.579.2. 462 Unknown [id number] 2.16.840.1.958332.3.579.2. 462 Unknown [id number] 2.16.840.1.047064.3.579.2. 462 Unknown [id number] 2.840.1.539619.3.579.2. 462 Unknown [id number] 2.840.1.008025.3.579.2. 462 Unknown [id number] 2.840.1.719546.3.579.2. 462 Unknown [id number] 2.840.1.513536.3.579.2. 462 Unknown [id number] 2.840.1.587018.3.579.2. 462 Unknown [id number] 2.840.1.131057.3.579.2. 462 Unknown [id number] 2.840.1.353073.3.579.2. 462 Unknown [id number] 2.840.1.661919.3.579.2. 462 Unknown [id number] 2.840.1.030378.3.579.2. 462 Unknown [id number] 2.840.1.494366.3.579.2. 462 Unknown [id number] 2.840.1.406806.3.579.2. 462 Unknown [id number] 2.840.1.469482.3.579.2. 462 Unknown [id number] 2.840.1.043100.3.579.2. 462 Unknown [id number] 2.840.1.283777.3.579.2. 462 Unknown [id number] 2.840.1.064160.3.579.2. 462 Unknown [id number] 2.16.840.1.271581.3.579.2. 462 Unknown [id number] 2.16840.1.663342.3.579.2. 462 Unknown [id number] 2.16.840.1.618743.3.579.2. 462 Unknown [id number] 2.16840.1.828049.3.579.2. 462 Unknown [id number] 2.16840.1.751223.3.579.2. 462 Social History Date Type Detail Facility Start: 08-10-2015 End: 03-06-2025 Tobacco smoking status NHIS Ex-smoker [facility] Start: 12-05-1975 End: 12-05-1985 History of tobacco use Current smoker [facility] Start: 12-05-1975 End: 12-05-1985 History of tobacco use Cigarette Smoker [facility] Start: 01-19-2022 End: 03-06-2025 Alcohol intake Current non-drinker of alcohol (finding) [facility] Start: 10-26-2020 History SDOH Alcohol Frequency 1 [facility] Start: 10-26-2020 History SDOH Alcohol Std Drinks 98 [facility] Start: 05-15-2019 History SDOH Alcohol Comment none now; social in past [facility] Start: 10-26-2020 History SDOH Social Connections Get Together 2 [facility] Start: 10-26-2020 History SDOH Social Connections Living 4 [facility] Start: 10-26-2020 History SDOH Physica l Activity DPW 0 [facility] Start: 10-26-2020 History SDOH Financial 5 [facility] Start: 10-26-2020 Education 14 [facility] Start: 1945 Sex Assigned At Not on file C [facility] Start: 01-09-2022 End: 08-15-2022 Exposure to SARS-CoV-2 (event) Not sure [facility] Start: 03-22-2022 End: 04-01-2022 Exposure to SARS-CoV-2 (event) Unable to assess [facility] Work Phone: Start: 08-10-2015 End: 04-11-2023 Cigarettes smoked current (pack per day) - Reported 2 [facility] Start: 08-10-2015 End: 06-05-2024 Tobacco use and exposure Smokeless tobacco non-user [facility] Start: 10-26-2020 End: 04-11-2023 Social connection and isolation panel [facility] Do you belong to any clubs or organizations such as christian groups, unions, fraternal or athletic groups, or school groups? No [facility] Are you now , , , , never or living with a partner? [facility] How often to you hav e a drink containing alcohol? Never [facility] How many standard dr inks containing alcohol do you have on a typical day? Patient refused [facility] Do you feel stress - tense, restless, nervous, or anxious, or unable to sleep at night because your mind is troubled all the time - these days [OSQ] Only a little [facility] (I/We) worried vannesa er (my/our) food would run out before (I/we) got money to buy more. Never true [facility] Start: 1945 Sex Assigned At Male W [facility] Medical Equipment Procedure Code Equipment Code Equipment Origin al Text Equipment Identifier Dates [id number], [id number] Start: 11-11-2011 Comment on above: Test blood sugar(s) one times daily. Dx: 250.00. Insulin: No Test blood sugar(s) one time daily. Dx: 250.00. Insulin: No Goals Date Patient Goal Desired Activity /State Personal health goal Functional Status Date Assessment Result Facility 04-09-2015 Are you deaf, or do you have serious difficulty hearing No 04/09/2015 11:20 AM Stephany Welch MA No [facility] 04-09-2015 Are you blind, or do you have serious difficulty seeing, even when wearing glasses No 04/09/2015 11:20 AM Stephany Welch MA No [facility] 04-09-2015 Do you have serious difficulty walking or climbing stairs No 04/09/2015 11:20 AM Stephany Welch MA No [facility] 04-09-2015 Do you have difficul ty dressing or bathing No 04/09/2015 11:20 AM Stephany Welch MA No [facility] 04-09-2015 Because of a physica l, mental, or emotional condition, do you have difficulty doing errands alone such as visiting a physician's office or shopping No 04/09/2015 11:20 AM EDT Stephany Graves MA No [facility] Mental Status Date Assessment Result Facility 04-09-2015 Because of a physica l, mental, or emotional condition, do you have serious difficulty concentrating, remembering, or making decisions No 04/09/2015 11:20 AM EDT Stephany Graves MA No [facility] Clinical Notes 03-29-2011 to 04-15-2025 Telephone Encounter - [place] [facility] - 04/15/2025 9:09 AM EDTTelephone Encounter - [place] [facility] - 04/15/2025 9:09 AM EDTTelephone Encounter - Leidy Malone RN - 04/14/2025 3:18 PM EDT Note Date & Type Note Facility 04-15-2025 Telephone encount er Note [facility] Anticoagulation Episode Summary Anticoagulation Care Providers Provider Role Specialty Phone number Guanakito Reno MD [facility] [phone] Cal Mitchell is a 79 year old [...] Pharmacy Anticoagulation Clinic [facility] Pager: [phone]. [facility] 04-15-2025 Miscellaneous Notes Formattin g of this note is different from the original. [facility] Anticoagulation Episode Summary Anticoagulation Care Providers Provider Role Specialty Phone number Guanakito Reno MD [facility] Medicine [phone] Cal Mitchell is a 79 year old [...] Pharmacy Anticoagulation Clinic Pharmacy [facility] Clinic Pager: [phone]. documented in this encounter [facility] 04-14-2025 Telephone encount er Note Gustavo calls back and notified of provider recommendation below. Voices understanding. Leidy Malone RN [facility] 04-14-2025 Miscellaneous Notes Formattin g of [...] him? Please advise documented in this encounter [facility] 04-14-2025 Telephone encount er Note Phoned Gustavo left message to return call and ask to speak to a nurse. [facility] 04-14-2025 Telephone encount er Note yes [facility] 04-14-2025 Telephone encount er Note Patient son in law Chen calling he has been giving the patient Tylenol 500 mg two tablets twice daily since his fracture right shoulder at almost the end of February. He is asking if it is alright that they are still giving it to him? Please advise [facility] 04-08-2025 Telephone encount er Note The following approved medication requests have been transmitted electronically. Requested Prescriptions Pending Prescriptions Disp Refills warfarin (COUMADIN) 5 mg tablet 90 tablet 3 Sig: Take 1 tablet by mouth once daily. warfarin (COUMADIN) 5 mg tablet 30 tablet 0 Sig: Take 1 tablet by mouth once daily. Carolina Landeros APRN.CNP [facility] 04-08-2025 Miscellaneous Notes Formattin g of [...] 2025 2:33 PM documented in this encounter [facility] 04-08-2025 Telephone encount er Note Prescription [...] Meyer LPN April 08, 2025 2:38 PM [facility] 04-08-2025 Miscellaneous Notes Formattin g of [...] 2025 2:38 PM documented in this encounter [facility] 04-08-2025 Telephone encount er Note Prescription [...] Meyer LPN April 08, 2025 2:33 PM [facility] 04-08-2025 Evaluation note Diagnosis Hypertensive kidney disease with stage 3 chronic kidney disease, unspecified whether stage 3a or 3b CKD (HCC) Type 2 diabetes mellitus with stage 3 chronic kidney disease, without long-term current use of insulin, unspecified whether stage 3a or 3b CKD (HCC) Chronic renal disease, stage IV (HCC) Chronic kidney disease, Stage IV (severe) documented in this encounter [facility]06-13-2025 Telephone encounter Note* Telephone Encounter - Niels Rodriges RN - 03/28/2025 1:04 PM EDT Faxed recent ov notes to [facility] per daughter, January request. . January reports she talked to [facility] about patient going to live there and [facility] instructed her to have pcp office send an H & P to them for review. [facility]06-13-2025 Miscellaneous Notes* Telephone Encounter - Niels Rodriges RN - 03/28/2025 1:04 PM EDT Faxed recent ov notes to [facility] per daughter, January request. . January reports she talked to [facility] about patient going to live there and [facility] instructed her to have pcp office send an H & P to them for review. [facility] Telephone encounter Note * Telephone Encounter - Alejandro Molina RPh - 03/24/2025 10:57 AM EDT [facility] Pharmacy Anticoagulation Clinic Anticoagulation Episode Summary Anticoagulation Care Providers Provider Role Specialty Phone number Guanakito Reno MD [facility] [phone] Cal Mitchell is a 79 year old [...] instructed to call [facility] at [phone] with any questionsor concerns. Alejandro Molina RPh Clinical Pharmacist, Pharmacy Anticoagulation Clinic Pharmacy An[facility] Pager: [phone] [facility]06-09-2025 Miscellaneous Notes* Telephone Encounter - Alejandro Molina RPh - 03/24/2025 10:57 AM EDT [facility] Pharmacy Anticoagulation Clinic Anticoagulation Episode Summary Anticoagulation Care Providers Provider Role Specialty Phone number Guanakito Reno MD [facility] [phone] Cal Mitchell is a 79 year old [...] instructed to call [facility] at [phone] with any questionsor concerns. Alejandro Molina RPh Clinical Pharmacist, Pharmacy Anticoagulation Clinic [facility] Pager: [phone] [facility] Evaluation note* Diagnosis Onset Date Resolution Status Admit Date Closed fracture of right pro ximal humerus acute March 07, 2025 1 2:49pm [facility] Work Phone: 1(393) 810-643005-23-2025 Evaluation note* Diagnosis Onset Date Resolution Status Admit Date Closed fracture of right proximal humerus acute March 07, 2025 12:49pm Closed fracture of right proximal humerus acute May 02, 2025 10:11am [facility] Work Phone: 1(389) 616-499505-22-2025 NoteHNO ID: [id number] Author: CAROLINA LANDEROS APRN.KOURTNEY Service: ? Author [...] and 9-10/10 with movement. - Currently taking Perry for pain management. - Denies pain elsewhere [...] 250.00. Insulin: No Lancets (ONE TOUCH DELICA) [facility] lancets Test blood sugar(s) one time daily. [...] in a sl (more content not included)... [facility]05-08-2025 Telephone encounter Note* Telephone Encounter - Jimmy Carrizales, [facility] - 02/20/2025 8:59 AM EDT [facility] Anticoagulation Episode Summary Anticoagulation Care Providers Provider Role Specialty Phone number Guanakito Reno MD [facility] [phone] Cal Mitchell is a 79 year old [...] 03/25/2024 Lab Results Component Value Date AST 01/21/2025 AST 25 07/12/2024 AST 19 03/25/2024 Estimated Creatinine Clearance: 31.7 mL/min (A) (based on SCr of 2.34 mg/dL (H)). 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 Kamranemma Ayon RPh Clinical Pharmacist, Pharmacy Anticoagulation Clinic Pharmacy Anticoagulation Clinic Pager: [phone]. 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 documented in this encounterR[facility]04-10-[facility]25 Progress note* Result Encounter Note - [...] levels, magnesium, and B12 are all normal. [facility]04-10-2025 Miscellaneous Notes* Result Encounter Note - [...] B12 are all normal. documented in this encounterRiverside [facility] Hospital04-08-2025 NoteHNO ID: [id number] Author: GEOVANNA HINDS MA Service: ? Author Type: Housekeeper Manager Type: Progress Notes Filed: 01/21/2025 17:08 [...] Geovanna Hinds MA January 21, 2025 5:08 [facility]04-08-2025 History of Present illness Narrative* Geovanna Hinds [...] taking lisinopril Monitors bp at home: Yes. Ricardo checks it, ok there Denies side effects: [...] No oropharyngeal exudate. Eyes: Comments: Conjunctiva gray. Plessis and itchy Cardiovascular: Rate and Rhythm: Normal [...] MG TABLET - COMPREHENSIVE METABOLIC PANEL 12. 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 - ICD9: V58.61, [...] \\ Carolina Landeros APRN.CNP documented in this encounterRiverside [facility] Hospital04-08-2025 Note* Addendum Note - Carolina Landeros APRN.CNP - 01/21/2025 4:54 PM EDTAddended by: CAROLINA LANDEROS on: 01/21/2025 04:54 PM Modules accepted: Orders [facility]04-08-2025 Miscellaneous Notes* Addendum Note - Carolina Landeros APRN.CNP - 01/21/2025 4:54 PM EDTAddended by: CAROLINA LANDEROS on: 01/21/2025 04:54 PM Modules accepted: Orders * Addendum Note - Geovanna Hinds MA - 01/21/2025 4:33 PM EDTAddended by: GEOVANNA HINDS on: 01/21/2025 04:33 PM Modules accepted: Orders documented in this encounterRiverside [facility] Hospital04-08-2025 Note* Addendum Note - Geovanna Hinds MA - 01/21/2025 4:33 PM EDTAddended by: GEOVANNA HINDS on: 01/21/2025 04:33 PM Modules accepted: Orders [address]08-2025 Instructions* Patient Instructions* Carolina Landeros APRN.CNP - [...] up in 6 months documented in this encounterRiverside [facility] Hospital04-08-2025 NoteHNO ID: [id number] Author: CAROLINA LANDEROS APRN.CNP Service: ? Author [...] taking lisinopril Monitors bp at home: Yes. Notrees checks it, ok there Denies side effects: [...] pain,every 5 min x3 blood sugar diagnostic (AsicAheadTOUCH ULTRA TEST) test strip Test blood sugar(s) [...] Drug use: No EXAM: (more content not included)...[facility]03-26-2025 Miscellaneous Notes* Telephone Encounter - [...] 08, 2025 2:53 PM documented in this encounterRiverside [facility] Hospital03-26-2025 Telephone encounter Note * Telephone Encounter [...] Barrow LPN January 08, 2025 2:53 PM [facility]03-26-2025 Telephone encounter Note* Telephone Encounter - Ruthie Cuevas RPh - 01/08/2025 8:51 AM EDT [facility]ulatory [facility]acy Anticoagulation Clinic Anticoagulation Episode Summary Anticoagulation Care Providers Provider Role Specialty Phone number Guanakito Reno MD [facility] Family Medicine [phone] Cal Mitchell is a 79 year old [...] ALLERGIES No Known Allergies Indication for Warfarin: penitentiary (current) use of anticoagulants Paroxysmal atrial fibrillation [...] missed any doses of warfarin. Ruthie Cuevas [facility] Clinical Pharmacist, Pharmacy Anticoagulation Clinic Pharmacy Anticoagulation Clinic Pager: [phone]. 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 documented in this encounterRiverside [facility] Hospital03-26-2025 Evaluation note* Diagnosis Hypertensive kidney disease with stage 3 chronic kidney disease, unspecified whether stage 3a or 3b CKD (HCC) documented in this encounter [facility]03-17-2025 Telephone encounter Note* Telephone Encounter - Octavio (FastclickRuben Granados - 12/30/2024 9:15 AM EDT Roscoe'larry called regarding INR result for patient. Result has been addressed below, no further action needed. Ruben Cunningham Pot Washer (Ubaldo) Pharmacy Anticoagulation Clinic [facility]03-17-2025 Miscellaneous Notes* Telephone Encounter - Octavio JansenHealth ConsultantRuben Granados - 12/30/2024 9:15 AM EDT De called regarding INR result for patient. Result has been addressed below, no further action needed. Ruben Cunningham Pot Washer (environmental project manager) Pharmacy Anticoagulation Clinic * Telephone Encounter - Twin Cole RPh - 12/30/2024 9:12 AM EDT [facility]ulatory [facility]acy Anticoagulation Clinic Anticoagulation Episode Summary Anticoagulation Care Providers Provider Role Specialty Phone number Guanakito Reno MD [facility] [phone] Cal Mitchell is a 79 year old [...] Pharmacy Anticoagulation Clinic Pharmacy Anticoagulation Clinic Pager: [phone]. documented in this encounterRiverside [facility] Hospital03-17-2025 Telephone encounter Note * Telephone Encounter - Twin Cole RPh - 12/30/2024 9:12 AM EDT [facility] Anticoagulation Clinic Anticoagulation Episode Summary Anticoagulation Care Providers Provider Role Specialty Phone number Guanakito Reno MD [facility] [phone] Cal Mitchell is a 79 year old [...] missed any doses of warfarin. Twin Cole [facility] Clinical Pharmacist, Pharmacy Anticoagulation Clinic Pharmacy Anticoagulation Clinic Pager: [phone]. [facility]02-26-2025 Telephone encounter Note* Telephone Encounter - Jimmy Carrizales [facility] - 12/11/2024 9:43 AM EST [facility] Ambulatory Pharmacy Anticoagulation Clinic Anticoagulation Episode Summary Anticoagulation Care Providers Provider Role Specialty Phone number Guanakito Reno MD [facility] Medicine [phone] Cal Mitchell is a 79 year old [...] ALLERGIES No Known Allergies Indication for Warfarin: penitentiary (current) use of anticoagulants Paroxysmal atrial fibrillation [...] Pharmacy Anticoagulation Clinic Pharmacy Anticoagulation Clinic Pager: [phone]. 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 Jimmy Carrizales [facility] Clinical Pharmacist, Pharmacy Anticoagulation Clinic Pharmacy Anticoagulation Clinic Pager: [phone]. documented in this encounterRiverside [facility] Hospital02-11-2025 Telephone encounter Note * Telephone Encounter - Twin Cole [facility] - 11/26/2024 5:26 PM EST [facility]ulatory [facility]acy Anticoagulation Clinic Anticoagulation Episode Summary Anticoagulation Care Providers Provider Role Specialty Phone number Guanakito Reno MD [facility] [phone] Cal Mitchell is a 79 year old [...] Pharmacy Anticoagulation Clinic Pharmacy Anticoagulation Clinic Pager: [phone]. [facility]02-11-2025 Miscellaneous Notes* Telephone Encounter - Twin Cole RPh - 11/26/2024 5:26 PM EST [facility] Ambulatory Pharmacy Anticoagulation Clinic Anticoagulation Episode Summary Anticoagulation Care Providers Provider Role Specialty Phone number Guanakito Reno MD [facility] Medicine [phone] Cal Mitchell is a 79 year old [...] Pharmacy Anticoagulation Clinic Pharmacy Anticoagulation Clinic Pager: [phone]. documented in this encounterRiverside [facility] Hospital01-13-2025 Telephone encounter Note * Telephone Encounter - Alejandro Molina RPh - 10/28/2024 5:06 PM EST [facility] Ambulatory [facility]acy Anticoagulation Clinic Anticoagulation Episode Summary Anticoagulation Care Providers Provider Role Specialty Phone number Guanakito Reno MD [facility] [phone] Cal Mitchell is a 79 year old [...] instructed to call Pharmaceutical Anticoagulation Clinic at [phone] with any questionsor concerns. Alejandro Molina RPh Clinical Pharmacist, Pharmacy Anticoagulation Clinic Pharmacy Anticoagulation Clinic Pager: [phone] [facility]01-13-2025 Miscellaneous Notes* Telephone Encounter - Alejandro Molina RPh - 10/28/2024 5:06 PM EST [facility] Ambulatory Pharmacy Anticoagulation Clinic Anticoagulation Episode Summary Anticoagulation Care Providers Provider Role Specialty Phone number Guanakito Reno MD [facility] Family Medicine [phone] Cal Mitchell is a 79 year old [...] instructed to call Pharmaceutical [facility]tico[facility] at [phone] with any questionsor concerns. Alejandro Molina RPh Clinical Pharmacist, Pharmacy Anticoagulation Clinic Pharmacy Anticoagulation Clinic Pager: [phone] documented in this encounterRiverside [facility] Hospital01-06-2025 Telephone encounter Note * Telephone Encounter - Ashley De Dios RN - 10/21/2024 2:58 PM EST Pt ALEC Chen called and is notified of providers message. He voices understanding. Ashley De Dios RN [facility]01-06-2025 Miscellaneous Notes* Telephone Encounter - Ashley [...] Please call and advise. documented in this encounterRiverside [facility] Hospital01-06-2025 Telephone encounter Note * Telephone Encounter - Guanakito Reno MD - 10/21/2024 2:25 PM EST agree [facility]01-06-2025 Telephone encounter Note* Telephone Encounter - [...] to the Pt. Ashley De Dios RN [facility]01-06-2025 Telephone encounter Note* Telephone Encounter - Guanakito Reno MD - 10/21/2024 1:55 PM EST Can try mucinex otc. Call if symptoms worsen at all or if not better in one to two weeks [facility]01-06-2025 Telephone encounter Note* Telephone Encounter - [...] him for Covid. Please call and advise. [facility]12-17-2024 Telephone encounter Note* Telephone Encounter - Twin Cole [facility] - 10/01/2024 9:37 AM EST [facility] Ambulatory Pharmacy Anticoagulation Clinic Anticoagulation Episode Summary Anticoagulation Care Providers Provider Role Specialty Phone number Guanakito Reno MD [facility] Medicine [phone] Cal Mitchell is a 79 year old [...] Pharmacy Anticoagulation Clinic Pharmacy Anticoagulation Clinic Pager: [phone]. [facility]12-17-2024 Miscellaneous Notes* Telephone Encounter - Twin Cole RPh - 10/01/2024 9:37 AM EST [facility] Ambulatory Pharmacy Anticoagulation Clinic Anticoagulation Episode Summary Anticoagulation Care Providers Provider Role Specialty Phone number Guanakito Reno MD [facility] [phone] Cal Mitchell is a 79 year old [...] missed any doses of warfarin. Twin Cole [facility] Clinical Pharmacist, Pharmacy Anticoagulation Clinic Pharmacy Anticoagulation Clinic Pager: [phone]. documented in this encounterRiverside [facility] Hospital11-11-2024 Telephone encounter Note * Telephone Encounter - Alejandro Molina RP - 08/26/2024 6:35 AM EST [facility] Ambulatory [facility]acy Anticoagulation Clinic Anticoagulation Episode Summary Anticoagulation Care Providers Provider Role Specialty Phone number Guanakito Reno MD [facility] Family Medicine [phone] Cal Mitchell is a 79 year old [...] warfarin instructions: 5 mg every day Sent [employer] message Advised patient to continue current weekly dose as noted above Next INR check due on 09/09/2024 Alejandro Molina RPh Clinical Pharmacist, Pharmacy Anticoagulation Clinic Pharmacy Anticoagulation Clinic Pager: [phone]. [facility]11-11-2024 Miscellaneous Notes* Telephone Encounter - Alejandro Molina RPh - 08/26/2024 6:35 AM EST [facility] Ambulatory [facility]acy Anticoagulation Clinic Anticoagulation Episode Summary Anticoagulation Care Providers Provider Role Specialty Phone number Guanakito Reno MD [facility] [phone] Cal Mitchell is a 79 year old [...] warfarin instructions: 5 mg every day Sent [employer] message Advised patient to continue current weekly dose as noted above Next INR check due on 09/09/2024 Alejandro Molina [facility] Clinical Pharmacist, Pharmacy Anticoagulation Clinic Pharmacy Anticoagulation Clinic Pager: [phone]. documented in this encounterRiverside Methodist Hospital11-04-2024 NoteHNO ID: [id number] Author: MELANIA GALINDO RN Service: ? Author Type: Registered Nurse Type: Progress Notes Filed: 08/19/2024 12:55 Note Text: Summary: Medication Adherence Review per Request of Payor ACNiels LUIS RN Reason for review or outreach: Medication Adherence Review Details: Cholesterol FYI/REQUESTED ACTION: Summary / Findings: Atorvastatin was due for refill on/before 08.09.24. Sent [employer] reminder 08.15.24- not read Called patient Patient identified by name and date of . Patient Attributed To: QAE Payer: [employer] Action Taken: Data submitted to Payer Contact made with patient: No, Left message BENJIE Schreiber RNUniversity Hospitals [facility]11-04-2024 History of Present illness Narrative* Melania Galindo RN - 08/19/2024 12:51 PM ESTSummary: Medication Adherence Review per Request of Payor ACNiels LUIS RN Reason for review or outreach: Medication Adherence Review Details: Cholesterol FYI/REQUESTED ACTION: Summary / Findings: Atorvastatin was due for refill on/before 08.09.24. Sent [employer] reminder 08.15.24- not read Called patient Patient identified by name and date of . Patient Attributed To: QAE Payer: [employer] Action Taken: Data submitted to Payer Contact made with patient: No, Left message BENJIE Schreiber RN documented in this encounterRiverside [facility] Hospital11-04-2024 NotePatient Outreach ([facility]) CAL MITCHELL ([id number]) 1945 M Date Time Provider Department 08/19/24 MELANIA GALINDO During your visit today, we recorded the following information about you: Melania Galindo RN 08/19/2024 12:55 PM Signed ACM LUIS RN Reason for review or outreach: Medication Adherence Review Details: Cholesterol FYI/REQUESTED ACTION: Summary / Findings: Atorvastatin was due for refill on/before 08.09.24. Sent [employer] reminder 08.15.24- not read Called patient Patient identified by name and date of . Patient Attributed To: [facility] Payer: [facility] Action Taken: Data submitted to Payer Contact [...] Insulin: No - Lancets (ONE TOUCH DELICA) [facility] lancets Test blood sugar(s) one time daily. 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 Cannot tell this Nurse what he is taking and not takiing at this time. Carolin Cantu LPN August 06, 2024 1:29 PM [facility]10-22-2024 Nurse Note* Carolin Cantu LPN - 08/06/2024 1:28 PM EDT Patient not a good historian of medications. Cannot tell this Nurse what he is taking and not takiing at this time. Carolin Cantu LPN August 06, 2024 1:29 PM documented in this encounterRiverside [facility] Hospital10-22-2024 History of Present illness Narrative* Laura Iraheta MD - 08/06/2024 1:25 PM EDT Images from the original note were not included. [facility] V[facility] [place] DEPARTMENT OF VASCULAR SURGERY OUTPATIENT VISIT DATE [...] 250.00. Insulin: No Lancets (ONE TOUCH DELICA) [facility] lancets Test blood sugar(s) one time daily. Dx: 250.00. Insulin: No ALLERGIES: ALLERGIES No Known Allergies REVIEW OF SYSTEM: Constitutional: No weight loss, malaise or fevers. Respiratory: Negative for SOB Cardiovascular: Negative for chest pain or recent MS Gatrointestinal: Negative for abdominal discomfort Genitourinary: Negative [...] 2024 TIME: 4:41 PM documented in this encounterRiverside [facility] Hospital10-17-2024 Telephone encounter Note * Telephone Encounter - Josselyn Mayer APRN.CNP - 08/01/2024 9:56 AM EDT I spoke with Gustavo and communicated recommendations of medical therapy. He reports patient also expressed wanting to continue without any further intervention. Patient and family agreeable to plan. Josselyn Mayer APRN.CNP [facility]10-17-2024 Miscellaneous Notes* Telephone Encounter - Josselyn [...] Gustavo calls requesting a return call at [phone]. Chely Nicolas RN * Telephone Encounter - Josselyn Mayer APRN.CNP - 07/30/2024 10:34 AM EDT Attempted to contact patient and his family to update him on the treatment plan. Left voicemail requesting phone call back. Josselyn Mayer APRN.CNP documented in this encounterRiverside Methodist Hospital10-16-2024 Telephone encounter Note * Telephone Encounter - Chely Nicolas RN - 07/31/2024 3:53 PM EDT Gustavo calls requesting a return call at [phone]. Chely Nicolas RN [facility]10-15-2024 History of Present illness Narrative* Josselyn [...] Josselyn Mayer APRN.CNP 07/30/2024 documented in this encounterRiverside Methodist Hospital10-15-2024 Telephone encounter Note * Telephone Encounter - Josselyn Mayer APRN.CNP - 07/30/2024 10:34 AM EDT Attempted to contact patient and his family to update him on the treatment plan. Left voicemail requesting phone call back. Josselyn Mayer APRN.CNP [facility]10-11-2024 Telephone encounter Note* Telephone Encounter - Kamran Ayon RPh - 07/26/2024 4:22 PM EDT Images from the original note were not included. Called and left voice message for daughter January asking her to return call to Pharmacy Anticoagulation Clinic to discuss if Lovenox was started for patient. Josselyn Mayer APRN.CNP Battle, Stacey, RNYesterday (2:01 PM) I sent 8 syringes [...] to test INR. Kamran Ayon PharmD, BCPS [facility]10-11-2024 Miscellaneous Notes* Telephone Encounter - Kamran Ayon RPh - 07/26/2024 4:22 PM EDT Images from the original note were not included. Called and left voice message for daughter January asking her to return call to Pharmacy Anticoagulation Clinic to discuss if Lovenox was started for patient. Josselyn Mayer, ÁLVARO.Chely Cho, RN (2:01 PM) I sent 8 syringes [...] BCPS * Telephone Encounter - Jimmy Carrizales [facility] - 07/25/2024 11:45 AM EDT Left voice message asking patient at [phone] (home) or daughter January to call the Anticoagulation Clinic at [phone] re: patient recenly off warfarin for heart cath on 07/23/24. Patient was prescribed Lovenox 100 mg sq Once daily by cardiology. Next Action for Anti coag Management: TM Remote Jimmy Carrizales PharmD., CACP documented in this encounterRiverside [facility] Hospital10-10-2024 Telephone encounter Note * Telephone Encounter - Jimmy Carrizales RP - 07/25/2024 11:45 AM EDT Left voice message asking patient at [phone] (home) or daughter January to call the Anticoagulation Clinic at [phone] re: patient recenly off warfarin for heart cath on 07/23/24. Patient was prescribed Lovenox 100 mg sq Once daily by cardiology. Next Action for Anti coag Management: TM Remote Jimmy Carrizales PharmD., CACP [facility]10-08-2024 History of Present illness Narrative* Victoria Marks, RT(R) - 07/23/2024 7:30 AM EDT Radiology [...] PATIENT PRESENTS WITH AN IMPLANTABLE OR ATTACHED TIMERS INSPECTOR: No ALLERGIES: Reviewed and unchanged CONTRAST ALLERGY: [...] 2024 TIME: 9:13 AM documented in this encounterRiverside [facility] Hospital09-30-2024 Telephone encounter Note * Telephone Encounter - Josselyn Barrow LPN - 07/15/2024 3:19 PM EDT Notified Gustavo. [facility]09-30-2024 Miscellaneous Notes* Telephone Encounter - Josselyn [...] proceeding. Teresa Alexis RN documented in this encounterRiverside Methodist Hospital09-30-2024 Telephone encounter Note * Telephone Encounter - Magdalena Laird LPN - 07/15/2024 3:15 PM EDT Son notified of results and provider message. Magdalena Laird LPN [facility]09-30-2024 Miscellaneous Notes* Telephone Encounter - Magdalena [...] does off of meds. documented in this encounterRiverside [facility] Hospital09-30-2024 Telephone encounter Note * Telephone Encounter - Guanakito Reno MD - 07/15/2024 2:40 PM EDT Agree. As long as he is aware. [facility]09-30-2024 Telephone encounter Note* Telephone Encounter - [...] like PCP recommendationbefore proceeding. Teresa Alexis RN [facility]09-30-2024 Telephone encounter Note* Telephone Encounter - Carolina Alba MA - 07/15/2024 2:14 PM EDT Message left for return call. Carolina Alba MA [facility]09-30-2024 Telephone encounter Note* Telephone Encounter - Guanakito Reno MD - 07/15/2024 1:04 PM EDT Kidney function and anemia are stable. See nephrology as we had recommended. Sugars are overall notbad. Hold on amaryl. Call sugars in two weeks to see how he does off of meds. [facility]09-30-2024 History of Present illness Narrative* Guanakito Reno MD - 07/15/2024 8:03 AM EDT Apparently second visit created in error. documented in this encounterRiverside Methodist Hospital09-27-2024 Telephone encounter Note * Telephone Encounter - Guanakito Reno MD - 07/12/2024 12:49 PM EDT Noted. Thank you [facility]09-27-2024 Miscellaneous Notes* Telephone Encounter - Guanakito Reno MD - 07/12/2024 12:49 PM EDT Noted. Thank you * Telephone Encounter - Art Estes - 07/12/2024 12:34 PM EDT Attempted to find sooner apt time for patients nephrology apt, no sooner times within [facility] facilities that are faster than patients [facility]. documented in this encounterRivers[facility]09-27-[facility]24 Telephone encounter Note * Telephone Encounter - Art Estes - 07/12/2024 12:34 PM EDT Attempted to find sooner apt time for patients nephrology apt, no sooner times within [facility] facilities that are faster than patients [facility]. [facility]09[facility] History of Present illness Narrative* Guanakito [...] or worsening shortness of breath. Currently wearing Whisk (formerly Zypsee) heart monitor. Placed yesterday. Follows with Cardiology. [...] 250.00. Insulin: No Lancets (ONE TOUCH DELICA) [facility] lancets Test blood sugar(s) one time daily. [...] ICD10: G30.9, F01.50, F02.80 - stable. 10. 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 Guanakito Reno MD documented in this encounterRiverside [facility] Hospital09-25-2024 History of Present illness Narrative* Pam Reddy MD - 07/10/2024 3:07 PM EDT Images from the original note were not included. Pam Reddy MD Interventional Cardiology [address] [place] [address] Chief Complaint Patient presents with: Aortic Stenosis: [...] with significant dementia. Patient follow-up at the [place] office 6 months ago he was completely [...] CTA CHEST (GATED) WO/W IVCON - CARDIAC SKEIN DRIER ORDER - 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 - COMPLETE BLOOD COUNT - BASIC [...] to correct any errors. * Josselyn Mayer, CORPORATE STRATEGY ANALYST.BLADE CHANGER - 07/10/2024 9:39 AM EDT Procedure Type: [...] 10, 2024 TIME: 8:06 AM PAGER/CONTACT #: [phone] documented in this encounterRiverside Methodist Hospital09-25-2024 Nurse Note* Judy Magana Senior Vice President - 07/10/2024 10:00 AM EDT Applied 14 day extended wear EKG patch. Pt verbalized understanding of monitor use / diary. [facility] Nurse Note* Judy Magana Senior Vice President - 07/10/2024 10:00 AM EDT Applied 14 day extended wear EKG patch. Pt verbalized understanding of monitor use / diary. documented in this encounterRiverside Methodist Hospital09-25-2024 Instructions* Patient Instructions* Josselyn Mayer APRN.CNP [...] process is complete. The content on the [employer] website is not intended nor recommended as a substitute for medical advice, diagnosis, or treatment. Always seek the advice of your own physician or other qualified healthcare professional regarding any medical questions or conditions.. 2016 [employer]. All rights reserved. Topic 15781 Version 5.0 documented in this encounterRiverside Methodist Hospital09-25-2024 History of Present illness Narrative* Cal Mondragon MD - 07/10/2024 8:37 AM EDT PRIMARY CARE PHYSICIAN: Guanakito Reno [address] [place] [address] Subjective Chief Complaint Patient presents with: Aortic [...] 150 Strip 3 Lancets (ONE TOUCH DELICA) [facility] lancets Test blood sugar(s) one time daily. [...] also refer to vascular surgery and a inventory auditor for further evaluation. 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 [facility]09-20-[facility] Miscellaneous Notes* Telephone Encounter - Annamarie Garcia RPh - 07/05/2024 9:43 AM EDT [facility] Anticoagulation Episode Summary Anticoagulation Care Providers Provider Role Specialty Phone number Guanakito Reno MD [facility] [phone] Cal Mitchell is a 79 year old [...] ALLERGIES No Known Allergies Indication for Warfarin: penitentiary (current) use of anticoagulants Paroxysmal atrial fibrillation (hcc) Anticoagulation Episode Summary Current INR goal: 2.0-3.0 Assessment: INR result of 2.2 is therapeutic Plan: Current Warfarin Dosing As of 07/05/2024 Full warfarin instructions: 5 mg every day Left voice message And sent [email or web address] message Advised patient to continue current weekly dose as noted above Next home INR check scheduled on 07/18/2024 Annamarie Garcia [facility] Clinical Pharmacist, Pharmacy Anticoagulation Clinic Pharmacy Anticoagulation Clinic Pager: [phone]. 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 [facility]09-[facility] Miscellaneous Notes* Telephone Encounter - Jimmy Carrizales RPh - 06/18/2024 8:39 AM EDT [facility] Anticoagulation Episode Summary Anticoagulation Care Providers Provider Role Specialty Phone number Guanakito Reno MD [facility] Medicine [phone] Cal Mitchell is a 78 year old [...] ALLERGIES No Known Allergies Indication for Warfarin: penitentiary (current) use of anticoagulants Paroxysmal atrial fibrillation [...] Pharmacy Anticoagulation Clinic Pharmacy Anticoagulation Clinic Pager: [phone]. documented in this encounterRiverside Methodist Hospital08-22-2024 Instructions* Patient Instructions* Carolina Landeros APRN.CNP - 06/06/2024 12:10 PM EDT 1) Stop Actos 2) Stop melatonin 3) Try to increase protein 4) Follow up in 1 months documented in this encounterRiverside Methodist Hospital08-22-2024 History of Present illness Narrative* Carolina Landeros APRN.[facility] - 06/06/2024 11:39 AM EDT This [...] 250.00. Insulin: No Lancets (ONE TOUCH DELICA) [facility] lancets Test blood sugar(s) one time daily. [...] as needed for worsening/no improvement. Carolina Landeros APRN.BLADE CHANGER documented in this encounterRiverside Methodist Hospital08-21-2024 Telephone encounter Note * Telephone Encounter - Josselyn Barrow LPN - 06/05/2024 4:53 PM EDT Attempted to reach daughter and her is already here with patient. [place] [address]-21-2024 Miscellaneous Notes* Telephone Encounter - Josselyn Barrow [...] Bill? Corrina Lennon APRN.CNP documented in this encounterRiverside Methodist Hospital08-21-2024 Telephone encounter Note * Telephone Encounter [...] can get him scheduled. Corrina Lennon APRN.CNP [facility]08-21-[facility] History of Present illness Narrative* Valerie Connelly APRN.CNP - 06/05/2024 4:45 PM EDT This note was created using [employer]. Subjective Cal Mitchell is a 78 year old male. 78 year old male with PMH HTN, hyperlipidemia, afib, PAD, CKD, DM presents for medical complaints. Acute onset of symptoms was over a week ago Patients daughter had sent in a [employer] message on 06/03/24. At that time she [...] history is provided by the patient. No languages and literature instructor was used. Edema This is a new [...] change medicines related to chronic conditions. Reviewed [employer] messages where patient was requested to be seen in person by PCP Appt made for AM 06/06/24 Valerie Connelly APRN.KOURTNEY documented in this encounterRiverside Methodist Hospital08-21-2024 Telephone encounter Note * Telephone Encounter [...] daughter Elly or son-in-law Gustavo. Thank you. [facility]08-19-[facility] Telephone encounter Note* Telephone Encounter - Corrina Lennon APRN.CNP - 06/03/2024 7:42 PM EDT We should probably have him in so we can see his legs and check his blood pressure. Please help schedule. Can we also get him contact info for nephrology. If he is looking for carole, it would probably beDrTitus Khan? Corrina Lennon APRN.KOURTNEY [facility]08-08-2024 Telephone encounter Note* Telephone Encounter - Chely Nicolas RN - 05/23/2024 9:49 AM EDT Images from the original note were not included. Gladys Bella31 minutes ago (9:17 AM) TR Good Morning. Pt is scheduled for Valve Clinic on 07/10/24 at 8:30 am per Josselyn. [facility]08-08-2024 Miscellaneous Notes* Telephone Encounter - Chely [...] PM EDT ----- Message from Josselyn Mayer APRN.BLADE CHANGER sent at 05/20/2024 2:28 PM EDT ----- Creatinine 2.3. Per chart review he was asymptomatic but had an episode of syncope. Do you want work up first or just valve clinic? Josselyn ----- Message ----- From: Pam Reddy MD Sent: 05/18/2024 8:44 AM EDT To: Chely Nicolas RN; Josselyn Mayer APRN.BLADE CHANGER Aortic stenosis need to establish care at the valve clinic sledonaldo * Telephone [...] the valve clinic sle documented in this encounterRiverside Methodist Hospital08-08-2024 Telephone encounter Note * Telephone Encounter - Chely Nicolas RN - 05/23/2024 8:27 AM EDT Left message on voicemail requesting pt return call for test results and MD recommendations. Officephone number provided. Chely Nicolas RN [facility]08-08-2024 Telephone encounter Note* Telephone Encounter - Chely Nicolas RN - 05/23/2024 8:26 AM EDT Images from the original note were not included. Pam Reddy MD You; InemanJosselyn APRN.CNP15 hours ago (4:42 PM) Let's see at the valve clinic kam [facility]08-06-2024 Telephone encounter Note* Telephone Encounter - Wilfred June Sarah - 05/21/2024 3:10 PM EDT Patient's son in law called in to confirm appointment with Dr. Reddy. Thanks Claritza Sarah Hardin [facility]08-06-2024 Miscellaneous Notes* Telephone Encounter - Wilfred June - 05/21/2024 3:10 PM EDT Patient's son [...] you, Josselyn Mayer APRN.CNP documented in this encounterRiverside Methodist Hospital08-05-2024 Telephone encounter Note * Telephone Encounter [...] Sent: 05/18/2024 8:44 AM EDT To: Chely iNcolas RN; Josselyn Mayer APRN.BLADE CHANGER Aortic stenosis need to establish care at the valve clinic kam [facility]08-05-2024 Telephone encounter Note* Telephone Encounter - Josselyn Mayer APRN.BLADE CHANGER - 05/20/2024 2:29 PM EDT Attempted to [...] care with Nephrologists. Thank you, Josselyn Mayer APRN.BLADE CHANGER [facility] Work Phone: 1(378) 410-199508-05-2024 Telephone encounter Note* Telephone Encounter - Chely Nicolas RN - 05/20/2024 9:59 AM EDT Left message on voicemail requesting pt return call for test results. Office phone number provided. Chely Nicolas RN [facility]08-05-2024 Telephone encounter Note* Telephone Encounter - Chely Nicolas RN - 05/20/2024 9:58 AM EDT ----- Message from Pam Reddy MD sent at 05/18/2024 8:44 AM EDT ----- Aortic stenosis need to establish care at the valve clinic sleik [facility]08-02-2024 Telephone encounter Note* Telephone Encounter - Dorothy Joshua [facility] - 05/17/2024 9:22 AM EDT [facility] Clinic Anticoagulation Episode Summary Anticoagulation Care Providers Provider Role Specialty Phone number Guanakito Reno MD [facility] [phone] Cal Mitchell is a 78 year old [...] ALLERGIES No Known Allergies 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 documented in this encounterRiverside Methodist Hospital07-22-2024 Instructions* Patient Instructions* Corrina Lennon APRN.CNP - 05/06/2024 6:38 PM EDT Continue to try to get the stool sample. Continue the same medication. Schedule with nephrology (kidney doctor). Recheck with Dr. Reno in 2 months. documented in this encounterRiverside Methodist Hospital07-22-2024 History of Present illness Narrative* Corrina [...] a fall. Was outside and grabbed the prcz-wj-widd and shook it for a few seconds [...] 8 hours as needed. blood sugar diagnostic (AsicAheadTOUCH ULTRA TEST) test strip Test blood sugar(s) one times daily. Dx: 250.00. Insulin: No Lancets (ONE TOUCH DELICA) [facility] lancets Test blood sugar(s) one time daily. [...] as needed for worsening/no improvement. Corrina Lennon APRN.BLADE CHANGER documented in this encounterRiverside Methodist Hospital07-18-2024 History of Present illness Narrative* Jody [...] PATIENT PRESENTS WITH AN IMPLANTABLE OR ATTACHED TIMERS INSPECTOR: No RADIOLOGY DEPARTMENT: Ultrasound PERIPHERAL IV DATA: Not applicable SIGNED BY: Jody Queen RDMS May 02, 2024 10:49 AM documented in this encounterRiverside Methodist Hospital07-15-2024 Telephone encounter Note * Telephone Encounter - Stephany Graves MA - 04/29/2024 9:48 AM EDT Spoke with daughter. She stated she was suppose to call the local instrument engineer but didn't have the number and then forgot to call office to get it. Also she is not able to log into the [employer] account, states she forgot password. I have sent number for Dr. Khan to pt home along with mychart number so she can get [employer] account fixed and call to set up his appt with instrument engineer. Pt needs refill of Lipitor sent to [facility]. Stephany Graves MA [facility]07-15-2024 Miscellaneous Notes* Telephone Encounter - Stephany Graves MA - 04/29/2024 9:48 AM EDT Spoke with daughter. She stated she was suppose to call the local instrument engineer but didn't have the number and then forgot to call office to get it. Also she is not able to log into the [employer] account, states she forgot password. I have sent number for Dr. Khan to pt home along with [employer] number so she can get [employer] account fixed and call to set up his appt with instrument engineer. Pt needs refill of Lipitor sent to [...] nephrology? Was ordered previously. 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 documented in this encounterRiverside [facility] Hospital07-05-2024 Telephone encounter Note * Telephone Encounter - Geovanna Hinds MA - 04/19/2024 4:14 PM EDT Left message for patient to return call. Geovanna Hinds Ma [facility]07-05-2024 Telephone encounter Note* Telephone Encounter - Guanakito Reno MD - 04/19/2024 3:46 PM EDT Anemia is stable. I still need an ifobt done since he is on blood thinners to rule out gi blood loss. It may well be related to his kidneys. They are stable but worse. Did he get set up with nephrology? Was ordered previously. [facility]06-[facility] Telephone encounter Note* Telephone Encounter - Corrina Lennon APRN.KOURTNEY - 04/08/2024 3:45 PM EDT Pt aware. Corrina Lennon APRN.BLADE CHANGER [facility]06-24-[facility] Miscellaneous Notes* Telephone Encounter - Corrina Lennon APRN.CNP - 04/08/2024 3:45 PM EDT Pt aware. Corrina Lennon APRN.BLADE CHANGER * Telephone Encounter - Josselyn Barrow LPN [...] two weeks. See nephrology documented in this encounterRiverside [facility] Hospital06-24-2024 Telephone encounter Note * Telephone Encounter - Alejandro Molina RPh - 04/08/2024 3:36 PM EDT [facility] Ambulatory [facility]acy Anticoagulation Clinic Anticoagulation Episode Summary Anticoagulation Care Providers Provider Role Specialty Phone number Guanakito Reno MD [facility] [phone] Cal Mitchell is a 78 year old [...] Pharmacy Anticoagulation Clinic Pharmacy Anticoagulation Clinic Pager: [phone]. [facility]06-24-[facility] Miscellaneous Notes* Telephone Encounter - Alejandro Molina RPh - 04/08/2024 3:36 PM EDT [facility] Ambulatory Pharmacy Anticoagulation Clinic Anticoagulation Episode Summary Anticoagulation Care Providers Provider Role Specialty Phone number Guanakito Reno MD [facility] [phone] Cal Mitchell is a 78 year old [...] verbalizes understanding of the plan. Alejandro Molina [facility] Clinical Pharmacist, Pharmacy Anticoagulation Clinic Pharmacy Anticoagulation Clinic Pager: [phone]. documented in this encounterRiverside Methodist Hospital06-24-2024 Instructions* Patient Instructions* Corrina Lennon APRN.CNP - 04/08/2024 3:11 PM EDT Continue the same medication. Get the repeat labs in 2 weeks. Get the echo, carotid ultrasound, kidney ultrasound as planned. Schedule w/ nephrology. Schedule back in 1 month for recheck. documented in this encounterRiverside Methodist Hospital06-24-2024 History of Present illness Narrative* Corrina Lennno APRN.CNP - 04/08/2024 3:03 PM EDT This [...] 8 hours as needed. blood sugar diagnostic (AsicAheadTOUCH ULTRA TEST) test strip Test blood sugar(s) [...] as needed for worsening/no improvement. Corrina Lennon APRN.BLADE CHANGER The patient indicates understanding of these issues and agrees with the plan. documented in this encounterRiverside [facility] Hospital06-22-2024 Telephone encounter Note * Telephone Encounter [...] Diana Jimenez PharmD, MPH Anticoagulation Clinic Pharmacist [phone] [facility]06-22-[facility] Miscellaneous Notes* Telephone Encounter - Nabila [...] Diana Jimenez PharmD, MPH Anticoagulation Clinic Pharmacist [phone] * Telephone Encounter - Nabila Jimenez RPh - 04/06/2024 3:49 PM EDT Called and LM for patient and sent MyChart referenced in VM (though patient has not logged into [employer] since December). Patient was asked to call/page PAC at next convenience to confirm receipt of message Will follow up on Monday and expect next INR on that date Diana Jimenez PharmD, MPH Anticoagulation Clinic Pharmacist [phone] * Telephone Encounter - Yamilka Heath RN - 04/04/2024 1:14 PM EDT Alana Perez calling in INR result today (04/04.) result has been addressed below. 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 documented in this encounterRiverside [facility] Hospital06-22-2024 Telephone encounter Note * Telephone Encounter - Nabila Jimenez RPh - 04/06/2024 3:49 PM EDT Called and LM for patient and sent [facility] referenced in VM (though patient has not logged into [employer] since December). Patient was asked to call/page PAC at next convenience to confirm receipt of message Will follow up on Monday and expect next INR on that date Diana Jimenez, SamirD, MPH Anticoagulation Clinic Pharmacist [phone] [facility]06-21-[facility] Telephone encounter Note* Telephone Encounter - Josselyn Barrow LPN - 04/05/2024 4:25 PM EDT Has visit scheduled with Corrina on Monday will route to their pool. If he keeps that appt can you please close for us? Thank you. [facility]06-21-[facility] Telephone encounter Note* Telephone Encounter - Carolina Alba MA - 04/05/2024 4:19 PM EDT No answer. Left detailed message stating we were calling in regards to results and needing to discuss a few things. Advised to return call. Carolina Alba MA [facility]06-21-2024 Telephone encounter Note* Telephone Encounter - Jonelle Worley LPN - 04/05/2024 10:41 AM EDT Phoned patient left message to return call and ask to speak to a nurse. [facility]06-21-2024 Telephone encounter Note* Telephone Encounter - Guanakito Reno MD - 04/05/2024 10:21 AM EDT Anemia is stable. May be related to his kidneys. Renal function continues to be slightly worse. Get renal us as ordered. Check ifobt. Recheck labs in two weeks. See nephrology [facility]06-20-2024 Telephone encounter Note* Telephone Encounter - Yamilka Heath RN - 04/04/2024 1:14 PM EDT Alana Perez calling in INR result today (04/04.) result has been addressed below. 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 [facility]06-11-2024 Instructions* Patient Instructions* Guanakito Reno MD - 03/26/2024 5:00 PM EDT Stop lisinopril hctz Start lisinopril. Call if any shortness of breath or edema. Weigh daily. Call us if you gain more than 3-4 lbs in a 24 hour period Get carotid ultrasound Recheck labs end of this week or early next. documented in this encounterRiverside [facility] Hospital06-11-2024 History of Present illness Narrative* Guanakito [...] mg daily. Needs 30 day supply to [employer] while waiting for shipment from [employer]. No myalgias HTN: Continues on Zestoretic 20-12.5 [...] 8 hours as needed. blood sugar diagnostic (AsicAheadTOUCH ULTRA TEST) test strip Test blood sugar(s) one times daily. Dx: 250.00. Insulin: No Lancets (ONE TOUCH DELICA) [facility] lancets Test blood sugar(s) one time daily. [...] ICD10: G30.9, F01.50, F02.80 - stable. 9. penitentiary (current) use of anticoagulants - ICD9: V58.61, [...] two weeks or prn. documented in this encounterRiverside [facility] Hospital06-10-2024 History of Present illness Narrative* Pam Reddy MD - 03/25/2024 5:19 PM EDT Images from the original note were not included. Pam Reddy MD Interventional Cardiology [address] [place] [address] [phone] Chief Complaint Patient presents with: Follow Up [...] 3.1 cm Impacted cerumen 10/20 Obesity, unspecified 2/04 Other and unspecified hyperlipidemia 10/19 Other symptoms [...] 150 Strip 3 Lancets (ONE TOUCH DELICA) [facility] lancets Test blood sugar(s) one time daily. [...] to correct any errors. documented in this encounterRiverside [facility] Hospital05-24-2024 History of Present illness Narrative* Melania Galindo, BENJIE - 03/08/2024 8:42 AM EDTSummary: Medication adherence [...] of . Patient Attributed To: YANCIE Payer: [facility] Action Taken: Data submitted to [facility] message to patient Notation made to upcoming appointment notes requesting provider follow up Contact made with patient: No, Chart review only. 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 [facility]05-23-2024 Miscellaneous Notes* Telephone Encounter - Jimmy Carrizales RPh - 03/07/2024 11:54 AM EDT [facility] Ambulatory Pharmacy Anticoagulation Clinic Anticoagulation Episode Summary Anticoagulation Care Providers Provider Role Specialty Phone number Guanakito Reno MD [facility] Medicine [phone] Cal Mitchell is a 78 year old [...] ALLERGIES No Known Allergies Indication for Warfarin: penitentiary (current) use of anticoagulants Paroxysmal atrial fibrillation [...] INR check scheduled on 03/21/2024 Jimmy Carrizales [facility] Clinical Pharmacist, Pharmacy Anticoagulation Clinic Pharmacy Anticoagulation Clinic Pager: [phone]. documented in this encounterRiverside [facility]05-01-2024 Telephone encounter Note * Telephone Encounter - Ruthie Cuevas RPh - 02/14/2024 9:04 AM EDT [facility] Ambulatory Pharmacy Anticoagulation Clinic Anticoagulation Episode Summary Anticoagulation Care Providers Provider Role Specialty Phone number Guanakito Reno MD [facility] Family Medicine [phone] Cal Mitchell is a 78 year old [...] ALLERGIES No Known Allergies Indication for Warfarin: penitentiary (current) use of anticoagulants Paroxysmal atrial fibrillation [...] Pharmacy Anticoagulation Clinic Pharmacy Anticoagulation Clinic Pager: [phone]. 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 Advised patient to continue current weekly dose as noted above Next home INR check scheduled on 02/28/2024 Ruthiemike Cuevas RPh Clinical Pharmacist, Pharmacy Anticoagulation Clinic Pharmacy Anticoagulation Clinic Pager: [phone]. documented in this encounterRiverside [facility] Hospital04-03-2024 Miscellaneous Notes* Telephone Encounter - Darrell [...] Thank you. Betzy Colvin. documented in this [facility]04-03-2024 Miscellaneous Notes* Telephone Encounter - Betyz Colvin - 01/17/2024 3:22 PM EDT Patient's daughter calling to request medication that is on patient list pioglitazone (ACTOS) 15 mg tablet Please [facility] to [facility]. documented in this encounterRiverside [facility] Hospital04-01-2024 Miscellaneous Notes* Telephone Encounter - Alejandro Molina RPh - 01/15/2024 10:32 AM EDT [facility] Ambulatory Pharmacy Anticoagulation Clinic Anticoagulation Episode Summary Anticoagulation Care Providers Provider Role Specialty Phone number Guanakito Reno MD [facility] [phone] Cal Mitchell is a 78 year old [...] instructed to call [facility] at [phone] with any questionsor concerns. Alejandro Molina RPh Clinical Pharmacist, Pharmacy Anticoagulation Clinic Pharmacy Anticoagulation Clinic Pager: [phone] documented in this encounterRiverside [facility] Hospital03-08-2024 Instructions* Patient Instructions* Carolina Landeros APRN.CNS - 12/22/2023 3:30 PM EST 1) Telfa dressing change daily 2) Letter for [facility] Day [facility] 3) Follow up in 3m 4) Melatonin 3mg qhs and may repeat once through night if needed documented in this encounterRiverside [facility] Hospital03-08-2024 History of Present illness Narrative* Carolina Landeros APRN.ANIMAL SERVICES OFFICER - 12/22/2023 3:10 PM EST This is [...] 250.00. Insulin: No Lancets (ONE TOUCH DELICA) [facility] lancets Test blood sugar(s) one time daily. [...] agrees with the plan. documented in this encounterRiverside [facility] Hospital03-07-2024 Miscellaneous Notes* Telephone Encounter - Teresa [...] 7. TETANUS: 04/22/21 Protocols used: Cuts and [id number] documented in this encounterRiverside Methodist Hospital03-07-2024 Miscellaneous Notes* Telephone Encounter - Jimmy Carrizales, [facility] - 12/21/2023 9:03 AM EST [facility] Ambulatory Pharmacy Anticoagulation Clinic Anticoagulation Episode Summary Anticoagulation Care Providers Provider Role Specialty Phone number Guanakito Reno MD [facility] [phone] Cal Mitchell is a 78 year old [...] ALLERGIES No Known Allergies Indication for Warfarin: penitentiary (current) use of anticoagulants Paroxysmal atrial fibrillation (hcc) Anticoagulation Episode Summary Current INR goal: 2.0-3.0 Assessment: INR result of 2.6 is therapeutic Plan: Current Warfarin Dosing As of 12/21/2023 Full warfarin instructions: 7.5 mg every Tue; 5 mg all other days Left voice message Advised patient to continue current weekly dose as noted above Next home INR check scheduled on 01/04/2024 Jimmy Carrizales [facility] Clinical Pharmacist, Pharmacy Anticoagulation Clinic Pharmacy Anticoagulation Clinic Pager: [phone]. documented in this encounterRiverside [facility] Hospital02-19-2024 Miscellaneous Notes* Telephone Encounter - Daniel JansenHealth Consultant)Ashley - 12/04/2023 11:53 AM EST PATIENT CALL Received call from Summer with [facility] to report home meter result for patient. [facility] hasalready addressed this result (see below); nothing further needed at this time. Ashley Sanchez CPhT ([place]) Pharmacy Anticoagulation Clinic * Telephone Encounter - Alejandro Molina RP - 12/04/2023 9:44 AM EST [facility] Ambulatory Pharmacy Anticoagulation Clinic Anticoagulation Episode Summary Anticoagulation Care Providers Provider Role Specialty Phone number Guanakito Reno MD [facility] Family Medicine [phone] Cal Mitchell is a 78 year old [...] instructed to call Pharm[facility] at [phone] with any questionsor concerns. 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 documented in this encounterRiverside [facility] Hospital11-21-2023 History of Present illness Narrative* Mouna Vallecillo RN - 09/05/2023 1:48 PM ESTSummary: Medication Adherence review per request of payer ACM LUIS RN Action/FYI: Medication Adherence review completed per request of payer. NO PROVIDER ACTION REQUIRED Patient identified by name and date of . Patient Attributed To: [facility] Payer: [facility] Reason for review or outreach: Medication Adherence Medication Adherence Review Details: Diabetes Summary / Findings: GLIMEPIRIDE -- Refill Due - 07/18/2023 ATORVASTATIN -- Refill Due - 08/21/2023 Pharmacy - [facility] - Action Taken: Data submitted to Njini message to patient Contact made with patient: No, Chart review only. documented in this encounterRiverside [facility] Hospital11-07-2023 Miscellaneous Notes* Telephone Encounter - Twin Cole RPh - 08/22/2023 9:46 AM EST [facility] Ambulatory Pharmacy Anticoagulation Clinic Anticoagulation Episode Summary Anticoagulation Care Providers Provider Role Specialty Phone number Guanakito Reno MD [facility] Medicine [phone] Cal Mitchell is a 78 year old [...] INR check scheduled on 09/05/2023 Twin Cole [facility] Clinical Pharmacist, Pharmacy Anticoagulation Clinic Pharmacy Anticoagulation Clinic Pager: [phone]. documented in this encounterRiverside [facility] Hospital11-01-2023 Miscellaneous Notes* Telephone Encounter - Gerardo [...] states "one." Please phone Elly with reply: [phone] Copied and pasted provider's message from previous encounter: Sugars are really good. Stop his glimepiride. Call sugars in two weeks. His kidney function is worse, recheck labs in one . Make sure drinking adequate fluids. documented in this encounterRiverside [facility] Hospital10-31-2023 Miscellaneous Notes* Telephone Encounter - Niels [...] sure drinking adequate fluids. documented in this encounterRiverside [facility] Hospital10-30-2023 History of Present illness Narrative* Guanakito [...] 8 hours as needed. blood sugar diagnostic ([employer] ULTRA TEST) test strip Test blood sugar(s) one times daily. Dx: 250.00. Insulin: No Lancets (ONE TOUCH DELICA) [facility] lancets Test blood sugar(s) one time daily. [...] YR, HIGH DOSE, QUADRIVALENT (FLUZONE HIGH-DOSE) - [employer] COVID-19 VACCINE (2022- SEASON) AGE 12+ YR [...] N18.31 Guanakito Reno MD documented in this encounterRiverside [facility] Hospital10-11-2023 Miscellaneous Notes* Telephone Encounter - Ruthie Cuevas [facility] - 07/26/2023 4:50 PM EDT [facility] Ambulatory Pharmacy Anticoagulation Clinic Anticoagulation Episode Summary Anticoagulation Care Providers Provider Role Specialty Phone number Guanakito Reno MD [facility] Medicine [phone] Cal Mitchell is a 78 year old [...] ALLERGIES No Known Allergies Indication for Warfarin: penitentiary (current) use of anticoagulants Paroxysmal atrial fibrillation [...] Pharmacy Anticoagulation Clinic Pharmacy Anticoagulation Clinic Pager: [phone]. documented in this encounterRiverside [facility] Hospital09-19-2023 Miscellaneous Notes* Telephone Encounter - Pily Cuevas - 07/04/2023 3:50 PM EDT Patient needs to have a gap supply sent to [facility] as well please send at least [...] notify patient. Pily Horne documented in this encounterRiverside [facility] Hospital09-12-2023 History of Present illness Narrative* Lizette Cardenas RN - 2023 3:08 PM EDT ACM LUIS RN Action/FYI: Medication Adherence review completed per request of payer. NO PROVIDER ACTION REQUIRED Please see requests in the Summary/Findings section below Patient identified by name and date of . Patient Attributed To: QAE Payer: [facility] Reason for review or outreach: Medication Adherence Medication Adherence Review Details: Hypertension Summary / Findings: Lisinopril was due for refill on: 05/16/23 at [facility] Action Taken: Data submitted to Njini message to patient Other Contact made with patient: No, Chart review only. Signature: Lizette Cardenas RN documented in this encounterRiverside [facility] Hospital08-07-2023 Miscellaneous Notes* Telephone Encounter - Alejandro Molina RPh - 05/22/2023 10:12 AM EDT [facility] Ambulatory Pharmacy Anticoagulation Clinic Anticoagulation Episode Summary Anticoagulation Care Providers Provider Role Specialty Phone number Guanakito Reno MD [facility] Medicine [phone] Cal Mitchell is a 77 year old [...] instructed to call [facility] at [phone] with any questionsor concerns. Alejandro Molina RPh Clinical Pharmacist, Pharmacy Anticoagulation Clinic Pharmacy Anticoagulation Clinic Pager: [phone] documented in this encounterRiverside [facility] Hospital07-10-2023 Miscellaneous Notes* Telephone Encounter - Alejandro Molina RPh - 04/24/2023 10:04 AM EDT [facility] Ambulatory Pharmacy Anticoagulation Clinic Anticoagulation Episode Summary Anticoagulation Care Providers Provider Role Specialty Phone number Guanakito Reno MD [facility] [phone] Cal Mitchell is a 77 year old [...] Pharmacy Anticoagulation Clinic Pharmacy Anticoagulation Clinic Pager: [phone]. documented in this encounterRiverside [facility] Hospital07-05-2023 Miscellaneous Notes* Telephone Encounter - Anna [...] patient. Leslie Perez Pss documented in this encounterRiverside [facility] Hospital06-13-2023 Miscellaneous Notes* Telephone Encounter - Twin Cole RPh - 03/28/2023 3:22 PM EDT [facility] Ambulatory Pharmacy Anticoagulation Clinic Anticoagulation Episode Summary Anticoagulation Care Providers Provider Role Specialty Phone number Guanakito Reno MD [facility] Family Medicine [phone] Cal Mitchell is a 77 year old [...] Pharmacy Anticoagulation Clinic Pharmacy Anticoagulation Clinic Pager: [phone]. documented in this encounterRiverside [facility] Hospital05-01-2023 History of Present illness Narrative* Dory Mayers RN - 02/13/2023 4:13 PM EDT EVENT MONITOR DISPOSABLE PATCH INSTRUCTIONS Patient Name: Cal Mitchell Clinic Number: [id number] Skin prepped and cleansed with alcohol Patch secured to prepped area Monitor Activated Serial #: [id number] Patient Instructed: Prescribed order timeframe Bathing guidelines Usage of event button and diary documentation Return of monitor at the end of prescribed order Call with problems [phone] or [phone] ext. [phone] Patient expresses a good understanding of instructions Dory Mayers RN * Pam Reddy MD - 02/13/2023 4:01 PM EDT Images from the original note were not included. Pam Reddy MD Interventional Cardiology [facility] [address], [place] [address] [phone] Chief Complaint Patient presents with: Established Patient [...] obstruction, not elsewhere classified 10/20 Diabetes ([facility]) Diverticulosis of colon (without mention of hemorrhage) [...] 10 mL INTRAVENOUS DIRECTED PRAngely Reddy MD Review of Systems Constitutional: Negative [...] to correct any errors. documented in this encounterRiverside [facility] Hospital04-24-2023 History of Present illness Narrative* Guanakito [...] YR Guanakito Reno MD documented in this encounterRiverside [facility] Hospital04-03-2023 Miscellaneous Notes* Telephone Encounter - Corrina Lennon APRN.CNP - 01/16/2023 1:31 PM EDT Script sent. Corrina Lennon APRN.BLADE CHANGER * Telephone Encounter - Pily Syed MA [...] notify patient. Winifred Zazueta documented in this encounterRiverside Methodist Hospital03-30-2023 Miscellaneous Notes* Telephone Encounter - Jimmy Carrizales RP - 01/12/2023 4:25 PM EDT [facility] Ambulatory [facility]acy Anticoagulation Clinic Anticoagulation Episode Summary Anticoagulation Care Providers Provider Role Specialty Phone number Guanakito Reno MD [facility] Family Medicine [phone] Cal Mitchell is a 77 year old [...] ALLERGIES No Known Allergies Indication for Warfarin: penitentiary (current) use of anticoagulants Paroxysmal atrial fibrillation [...] Pharmacy Anticoagulation Clinic Pharmacy Anticoagulation Clinic Pager: [phone]. 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 * Telephone Encounter - Alejandro Molina RPh - 01/09/2023 4:34 PM EDT Patient was due to test INR today. Will continue to monitor for results. documented in this encounterRiverside [facility] Hospital03-06-2023 Miscellaneous Notes* Telephone Encounter - Alejandro Molina RPh - 12/19/2022 10:37 AM EST [facility] Antico[facility] Clinic Anticoagulation Episode Summary Anticoagulation Care Providers Provider Role Specialty Phone number Guanakito Reno MD [facility] [phone] Cal Mitchell is a 77 year old [...] instructed to call [facility] at [phone] with any questionsor concerns. Alejandro Molina RPh Clinical Pharmacist, Pharmacy Anticoagulation Clinic Pharmacy Anticoagulation Clinic Pager: [phone] documented in this encounterRiverside [facility] Hospital02-13-2023 Miscellaneous Notes* Telephone Encounter - Alejandro Molina RPh - 11/28/2022 10:18 AM EST [facility] Ambulatory [facility] Anticoagulation Clinic Anticoagulation Episode Summary Anticoagulation Care Providers Provider Role Specialty Phone number Guanakito Reno MD [facility] [phone] Cal Mitchell is a 77 year old [...] instructed to call [facility] at [phone] with any questionsor concerns. Alejandro Molina RPh Clinical Pharmacist, Pharmacy Anticoagulation Clinic Pharmacy Anticoagulation Clinic Pager: [phone] documented in this encounterRiverside [facility] Hospital02-03-2023 Miscellaneous Notes* Telephone Encounter - Kamran Ayon RPh - 11/18/2022 12:49 PM EST Patient due to test INR today. Will continue to monitor for results. 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 documented in this encounterRiverside [facility] Hospital01-17-2023 Miscellaneous Notes* Telephone Encounter - Twin Cole RPh - 11/01/2022 10:30 AM EST Patient due to test INR today. Will continue to monitor for results. 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 * Telephone Encounter - Ruthie Cuevas RPh - 10/19/2022 4:33 PM EST Patient was due to test INR today will continue to monitor for results. Ruthie Cuevas PharmD documented in this encounterRivers[facility]12-20-2022 History of Present illness Narrative* Alondra Prescott DO - 10/04/2022 10:58 AM EST This office note has been dictated. Alondra Prescott DO * Alondra Prescott DO - 10/04/2022 12:00 AM EST NAME: CAL MITCHELL [facility] NO: [id number] DATE OF SERVICE: 10/04/2022 Subjective: Mr. Mitchell [...] concerns. Alondra Prescott D.O. KB/[id number] Audio #: [id number] Date Dictated: 10/04/2022 10:13:59 Date Typed: 10/05/2022 14:12:47 Date Revised: documented in this encounterRiverside [facility] Hospital12-15-2022 Miscellaneous Notes* Telephone Encounter - Jimmy Carrizales [facility] - 09/29/2022 4:38 PM EST [facility] Anticoagulation Episode Summary Anticoagulation Care Providers Provider Role Specialty Phone number Guanakito Reno MD [facility] Family Medicine [phone] Cal Mitchell is a 77 year old [...] ALLERGIES No Known Allergies Indication for Warfarin: penitentiary (current) use of anticoagulants Paroxysmal atrial fibrillation [...] plan. Patient denies need for refills. Jimmy Huong Plantner, [facility] Clinical Pharmacist, Pharmacy Anticoagulation Clinic Pharmacy Anticoagulation Clinic Pager: [phone]. * Telephone Encounter - Ruben Cunningham ([employer]) - 09/29/2022 2:23 PM EST PATIENT CALL Patient's daughter Elly called call center regarding results. Patient's daughter stated the INR result was 1.9 last night at 9:30 pm and gave him an extra 1/2 tablet of warfarin. January will reach out to [facility] to report result and to have them troubleshoot application for new phone. PT INR (no units) Date Value 01/24/2022 2.1 biotel 10/26/2021 2.1 (Biotel) 03/04/2021 2.4 INR Home CoaguChek (no units) Date Value 09/14/2022 1.8 07/29/2022 2.2 07/04/2022 2.7 Patient stated she lets blocked calls go to [employer]. She asked if she needed to be near the meterto report the results over the phone to [facility]--advised her I am not sure. January can be reached at [phone] Ruben Cunningham ([employer]) * Telephone Encounter - Ruthie Cuevas RPh [...] PharmD Pharmacy Anticoagulation Clinic documented in this encounterRiverside [facility] Hospital12-09-2022 Miscellaneous Notes* Telephone Encounter - Yasemin Joyce - 09/23/2022 1:54 PM EST Patient has [...] and advise. Yasemin Cook documented in this encounterRiverside Methodist Hospital12-01-2022 Miscellaneous Notes* Telephone Encounter - Yamilka Heath RN - 09/15/2022 2:37 PM EST Spoke with patient's dtr Elly who stated he has a new phone and is having problems with the pedro, so she has been calling in INR results. She called in result on 08/22/22 for 2.1 but it did not register. Elly also stated when she calls in she's only asked for and not patient's name. Messaged Bonita at [facility]. Apurva Heath RN Pharmacy Anticoagulation Clinic * Telephone Encounter - Jimmy Carrizales RPh - 09/15/2022 10:24 AM EST [facility] Anticoagulation Episode Summary Anticoagulation Care Providers Provider Role Specialty Phone number Guanakito Reno MD [facility] [phone] Cal Mitchell is a 77 year old [...] ALLERGIES No Known Allergies Indication for Warfarin: penitentiary (current) use of anticoagulants Paroxysmal atrial fibrillation (hcc) Anticoagulation Episode Summary Current INR goal: 2.0-3.0 Assessment: INR result of is SUBtherapeutic due to: unknown cause - did not speak to patient Plan: Current Warfarin Dosing As of 08/22/2022 Full warfarin instructions: 09/15: 7.5 mg; Otherwise 7.5 mg every Tue; 5 mg all other days; Fvnzoxyn05/7/2022 Called and spoke to patient/caregiver - per demographics we only have daughter's phone number but no identifier Advised patient to increase dose for 1 day only then resume weekly regimen Next home INR check scheduled on 09/21/2022 Jimmy Carrizales [facility] Clinical Pharmacist, Pharmacy Anticoagulation Clinic Pharmacy Anticoagulation Clinic Pager: [phone]. * Telephone Encounter - Alejandro Molina [facility] - 09/05/2022 5:31 PM EST Added to discharge list. * Telephone Encounter - Ruthie Cuevas [facility] - 08/29/2022 4:49 PM EST Cal Mitchell was called and reminded to test INR today or as soon as possible. LM on his home/cell number. Ruthie Cuevas PharmD Pharmacy Anticoagulation Clinic * Telephone Encounter - Alejandro Molina [facility] - 08/22/2022 4:42 PM EST Patient was due to test INR today. Will continue to monitor for results. documented in this encounterRiverside Methodist Hospital11-23-2022 History of Present illness Narrative* Lizette Cardenas RN - 09/07/2022 6:24 AM EST ACM LUIS RN Action/FYI: Medication Adherence review completed per request of [facility]. NO PROVIDER ACTION REQUIRED Lisinopril/Hctz 20-12.5mg Last filled: 05/21/22 Days Supply: 90 Refill Due: 08/19/22 Pharmacy: [facility] Atorvastatin 80mg Last filled: 03/20/22 Days Supply: 90 Refill Due: 06/28/22 Pharmacy: [facility] MY CHART MESSAGE SENT Patient identified by name and date of . Patient Attributed To: QAE Payer: [facility] Reason for review or outreach: Medication Adherence Medication Adherence Review Details: Cholesterol and Hypertension Summary / Findings: As per above Action Taken: Data submitted to [employer] message to patient Contact made with patient: No, Chart review only. Signature: Lizette Cardenas RN documented in this encounterRiverside Methodist Hospital10-31-2022 History of Present illness Narrative* Pam Reddy MD - 08/15/2022 3:48 PM EDT Images from the original note were not included. Pam Reddy MD Interventional Cardiology [facility] [address], [place] [address] [phone] Chief Complaint Patient presents with: Consult HISTORY [...] 150 Strip 3 Lancets (ONE TOUCH DELICA) [facility] lancets Test blood sugar(s) one time daily. [...] to correct any errors. documented in this encounterRiverside Methodist Hospital10-17-2022 Miscellaneous Notes* Telephone Encounter - Alejandro Molina RPh - 08/01/2022 9:52 AM EDT [facility] Anticoagulation Episode Summary Anticoagulation Care Providers Provider Role Specialty Phone number Guanakito Reno MD [facility] [phone] Cal Mitchell is a 77 year old [...] instructed to call [facility] at [phone] with any questionsor concerns. Alejandro Molina RPh Clinical Pharmacist, Pharmacy Anticoagulation Clinic Pharmacy Anticoagulation Clinic Pager: [phone] documented in this encounterRiverside Methodist Hospital10-07-2022 Miscellaneous Notes* Telephone Encounter - Darrell [...] advise. Darrell Meyer LPN documented in this encounterRiverside [facility] Hospital09-20-2022 Miscellaneous Notes* Telephone Encounter - Twin Cole [facility] - 07/05/2022 9:30 AM EDT [facility] Anticoagulation Episode Summary Anticoagulation Care Providers Provider Role Specialty Phone number Guanakito Reno MD [facility] Family Medicine [phone] Cal Mitchell is a 77 year old [...] Pharmacy Anticoagulation Clinic Pharmacy Anticoagulation Clinic Pager: [phone]. * Telephone Encounter - Alejandro Molina RPh - 07/04/2022 3:42 PM EDT Cal Mitchell was called and reminded to test INR today or as soon as possible. * Telephone Encounter - Alejandro Molina RPh - 2022 4:11 PM EDT Patient was due to test INR today. Will continue to monitor for results. documented in this encounterRiverside Methodist Hospital08-30-2022 Miscellaneous Notes* Telephone Encounter - Twin Cole RPh - 06/14/2022 9:14 AM EDT [facility] Anticoagulation Episode Summary Anticoagulation Care Providers Provider Role Specialty Phone number Guanakito Reno MD [facility] [phone] Cal Mitchell is a 76 year old [...] Pharmacy Anticoagulation Clinic Pharmacy Anticoagulation Clinic Pager: [phone]. * Telephone Encounter - Val Oliver RPh - 06/13/2022 9:09 AM EDT [employer] message sent as a reminder to test INR RAISSA. * Telephone Encounter - Alejandro Molina RPh - 06/06/2022 4:50 PM EDT Patient was due to test INR today. Will continue to monitor for results. documented in this encounterRiverside Methodist Hospital08-30-2022 History of Present illness Narrative* Nirmala Lim MA - 06/14/2022 9:03 AM EDT [employer] NAVIGATION OUTREACH Action/FYI Called and left a message to call [phone], to discuss health maintenance items that are due. Sent My Chart message. PCP appt: 01/19- needs follow up per last ov note My chart activation: active Advance directive: needs info HM due: Follow up ARIAN AD Pt identified by name and : NO Outreach Outcome/Action Unable to reach patient: Left message R[employer] message sent Did you use a PCP flex slot to schedule this appointment? N/A Reason for Outreach Care Gap or Scheduling/Wellness visits Payer: Payor: [facility] MEDICARE / Plan: UHC AARP MEDICARE HMO [...] 14, 2022 9:05 AM documented in this encounterRiverside Methodist Hospital08-04-2022 Miscellaneous Notes* Telephone Encounter - Huong [...] 05/19/2022 11:56 AM EDT Pharmacy verified in [facility] Patient has been identified by name [...] advise. Yasemin Garcia Pss documented in this encounterRiverside Methodist Hospital08-01-2022 Miscellaneous Notes* Telephone Encounter - Alejandro Molina RPh - 05/16/2022 11:54 AM EDT [facility] Anticoagulation Episode Summary Anticoagulation Care Providers Provider Role Specialty Phone number Guanakito Reno MD [facility] [phone] Cal Mitchell is a 76 year old [...] instructed to call [facility] at [phone] with any questionsor concerns. Alejandro Molina RPh Clinical Pharmacist, Pharmacy Anticoagulation Clinic Pharmacy Anticoagulation Clinic Pager: [phone] documented in this encounterRiverside Methodist Hospital07-11-2022 Miscellaneous Notes* Telephone Encounter - Val Oliver RPh - 04/25/2022 7:56 AM EDT Last INR due around 04/18. MyChart message sent as a reminder to test INR RAISSA. PT INR (no units) Date Value 01/24/2022 2.1 biotel 10/26/2021 2.1 (Biotel) 03/04/2021 2.4 INR Home CoaguChek (no units) Date Value 04/02/2022 2.2 03/09/2022 2.6 02/10/2022 3.4 documented in this encounterRiverside [facility] Hospital06-15-2022 Miscellaneous Notes* Telephone Encounter - Ruthie [...] either. Ruthie Cuevas PharmD documented in this encounterRiverside [facility] Hospital06-01-2022 Miscellaneous Notes* Telephone Encounter - Nicki Nieto - 03/16/2022 10:46 AM EDT Patient is scheduled for an appt on 03/22/22 in [place]. Did call the patient to see if any external imagine has been complete, left VM to call the office Or record indicates no testing has been completed since 2019 Would you like an updated carotid US Order pending please sign if correct Thanks documented in this encounterRiverside Methodist Hospital05-25-2022 Miscellaneous Notes* Telephone Encounter - Ruthie Cuevas RPh - 03/09/2022 4:08 PM EDT [facility] Pharmacy Anticoagulation Clinic Anticoagulation Episode Summary Anticoagulation Care Providers Provider Role Specialty Phone number Guanakito Reno MD [facility] [phone] Cal Mitchell is a 76 year old [...] ALLERGIES No Known Allergies Indication for Warfarin: penitentiary (current) use of anticoagulants Paroxysmal atrial fibrillation (hcc) Anticoagulation Episode Summary Current INR goal: 2.0-3.0 Assessment: INR result of 2.6 is therapeutic He did not read our last [employer] message and hasn't logged on in a month so tried to call. Plan: Called and spoke to patient/caregiver Advised patient to continue current weekly dose Next home INR check scheduled on 03/23/2022 Ruthie Cuevas bobbi Clinical Pharmacist, Pharmacy Anticoagulation Clinic Pharmacy Anticoagulation Clinic Pager: [phone] . documented in this encounterRiverside Methodist Hospital05-05-2022 Miscellaneous Notes* Telephone Encounter - Jazmyn Garcia [facility] - 02/17/2022 1:17 PM EDT Patient due to test INR today. Will continue to monitor for results. Jazmyn Garcia [facility] documented in this encounterRiverside Methodist Hospital04-29-2022 Miscellaneous Notes* Telephone Encounter - Denisse Hutchinson [facility] - 02/11/2022 8:21 AM EDT [facility] Anticoagulation Episode Summary Anticoagulation Care Providers Provider Role Specialty Phone number Guanakito Reno MD [facility] [phone] Cal Mitchell is a 76 year old [...] ALLERGIES No Known Allergies Indication for Warfarin: penitentiary (current) use of anticoagulants Paroxysmal atrial fibrillation (hcc) Anticoagulation Episode Summary Current INR goal: 2.0-3.0 Assessment: INR result of is SUPRAtherapeutic due to: unknown cause - did not speak to patient Plan: Sent [employer] message Advised patient to decrease dose for 2 days only then resume weekly regimen Next home INR check scheduled on 02/17/2022 Denisse Hutchinson RPh Clinical Pharmacist, Pharmacy Anticoagulation Clinic Pharmacy Anticoagulation Clinic Pager: [phone] . * Telephone Encounter - Twin Cole RPh - 02/08/2022 4:00 PM EDT Patient due to test INR today. Will continue to monitor for results. Twin Cole RPh documented in this encounterRiverside Methodist Hospital04-12-2022 Miscellaneous Notes* Telephone Encounter - Twin Cole RPh - 01/25/2022 9:15 AM EDT [facility] Anticoagulation Episode Summary Anticoagulation Care Providers Provider Role Specialty Phone number Guanakito Reno MD [facility] [phone] Cal Mitchell is a 76 year old [...] Pharmacy Anticoagulation Clinic Pharmacy Anticoagulation Clinic Pager: [phone] . documented in this encounterRiverside Methodist Hospital04-06-2022 History of Present illness Narrative* Guanakito [...] No. Dementia: Had previously been following with [facility]. Last visit 08/2020. Doesn't have anything further scheduled. Doesn't really want to go to [place], but appears last visit was distance. Does not drive. Lives w/ daughter. Stays up late at night and sleep during the day. A. Fib: Chronic anticoagulation. Denies any hematochezia/melena. Daughter does home checks. Follows w/ pharmacy. occ fall with no significant injury. Had been following with [place] [facility], but unsure when he was last seen there. Diabetes. Does not check home blood sugars. Reports compliance w/ medication. Carotid artery stenosis. Follows w/ vascular. Last visit 10/20/20. Recommended follow-up with cardiology and then Dr. Devries in [place]. He did have echo done. Unsure if he followed up with [place] [facility]. Per note, they wanted to establish [...] Abs Lymph 1.00 - 4.00 k/uL 1.65 Payne% % 7.4 Abs Payne <0.87 k/uL 0.53 Eosin% % 8.2 Abs [...] Negative Negative Ketones, Urine Negative Negative Specific [place], Ur 1.005 - 1.030 1.016 Hemoglobin/Blood,Ur Negative [...] 250.00. Insulin: No Lancets (ONE TOUCH DELICA) [facility] lancets Test blood sugar(s) one time daily. [...] three months and prn. documented in this encounterRiverside Methodist Hospital03-31-2022 Miscellaneous Notes* Telephone Encounter - Jazmyn Garcia RPh - 01/13/2022 2:33 PM EDT Patient due to test INR today. Will continue to monitor for results. Jazmyn Garcia RPh documented in this encounterRiverside Methodist Hospital11-11-2020 History of Past illness Narrative* Problem [...] of this encounter (statuses as of 08/15/2023) [facility] of Past illness Narrative* Problem [...] of this encounter (statuses as of 08/15/2023) [facility] of [facility] illness Narrative* Problem [...] of this encounter (statuses as of 08/16/2023) [facility] of [facility] Narrative* Problem [...] of this encounter (statuses as of 08/23/2023) [facility] of [facility] illness Narrative* Problem [...] of this encounter (statuses as of 09/06/2023) [facility] of [facility] Narrative* Problem [...] of this encounter (statuses as of 09/20/2023) [facility] of [facility] Narrative* Problem [...] of this encounter (statuses as of 12/04/2023) [facility] Narrative* Problem [...] of this encounter (statuses as of 12/21/2023) [facility] Narrative* Problem [...] of this encounter (statuses as of 12/21/2023) [facility] Narrative* Problem [...] of this encounter (statuses as of 12/22/2023) [facility] Narrative* Problem [...] of this encounter (statuses as of 01/15/2024) [facility] Narrative* Problem [...] of this encounter (statuses as of 01/18/2024) [facility] Narrative* Problem [...] of this encounter (statuses as of 01/19/2022) [facility] N[facility]ative* Problem [...] of this encounter (statuses as of 01/25/2022) [facility] N[facility]* Problem [...] of this encounter (statuses as of 02/11/2022) [facility]* Problem [...] of this encounter (statuses as of 03/09/2022) [facility]* Problem [...] of this encounter (statuses as of 03/17/2022) [facility]* Problem [...] of this encounter (statuses as of 03/18/2022) [facility] N[facility]* Problem [...] of this encounter (statuses as of 04/04/2022) [facility]* Problem [...] of this encounter (statuses as of 04/25/2022) [facility]* Problem [...] of this encounter (statuses as of 05/13/2022) [facility]* Problem [...] of this encounter (statuses as of 05/16/2022) [facility]* Problem [...] of this encounter (statuses as of 05/19/2022) [facility]* Problem [...] of this encounter (statuses as of 06/14/2022) [facility]* Problem [...] of this encounter (statuses as of 07/05/2022) [facility]* Problem [...] of this encounter (statuses as of 07/22/2022) [facility]* Problem [...] of this encounter (statuses as of 08/01/2022) [facility]* Problem [...] of this encounter (statuses as of 08/15/2022) [facility]* Problem [...] of this encounter (statuses as of 09/07/2022) [facility]* Problem [...] of this encounter (statuses as of 09/15/2022) [facility]* Problem [...] of this encounter (statuses as of 09/23/2022) [facility]* Problem [...] of this encounter (statuses as of 09/29/2022) [facility]* Problem [...] of this encounter (statuses as of 10/16/2022) [facility]* Problem [...] of this encounter (statuses as of 10/25/2022) [facility]* Problem [...] of this encounter (statuses as of 11/04/2022) [facility]* Problem [...] of this encounter (statuses as of 11/08/2022) [facility]* Problem [...] of this encounter (statuses as of 11/18/2022) [facility]* Problem [...] of this encounter (statuses as of 11/28/2022) [facility]* Problem [...] of this encounter (statuses as of 12/19/2022) [facility]* Problem [...] of this encounter (statuses as of 01/12/2023) [facility]* Problem [...] of this encounter (statuses as of 01/16/2023) [facility]* Problem [...] of this encounter (statuses as of 02/07/2023) [facility]* Problem [...] of this encounter (statuses as of 02/14/2023) [facility]* Problem [...] of this encounter (statuses as of 03/29/2023) [facility]* Problem [...] of this encounter (statuses as of 04/20/2023) [facility]* Problem [...] of this encounter (statuses as of 04/24/2023) [facility]* Problem [...] of this encounter (statuses as of 05/22/2023) [facility]* Problem [...] of this encounter (statuses as of 06/28/2023) [facility]* Problem [...] of this encounter (statuses as of 07/05/2023) [facility]* Problem [...] of this encounter (statuses as of 07/27/2023) [facility]* Diagnosis Essential hypertension- Primary Unspecified essential [...] 3b CKD (HCC) documented in this encounter [facility]* Diagnosis penitentiary (current) use of anticoagulants- Primary Long-term (current) use of anticoagulants Paroxysmal atrial fibrillation (HCC) Atrial fibrillation documented in this encounter [facility]* Diagnosis penitentiary (current) use of anticoagulants- Primary Long-term (current) use of anticoagulants Paroxysmal atrial fibrillation (HCC) Atrial fibrillation documented in this encounter [facility] Hospital[facility]* 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- Primary Long-term (current) use of anticoagulants Paroxysmal atrial fibrillation (HCC) Atrial [facility] (current) use of anticoagulants- Primary Long-term (current) use of anticoagulants Paroxysmal atrial fibrillation (HCC) Atrial [facility] Diagnosis Bilateral carotid artery stenosis- Primary Occlusion and stenosis of carotid artery without mention of cerebral infarction Stenosis of left carotid artery Occlusion and stenosis of carotid artery without mention of cerebral infarction [facility] (current) use of anticoagulants- Primary Long-term (current) [...] [facility]* Diagnosis Obesity, Class II, BMI 35-39.9- Primary Obesity, unspecified Paroxysmal atrial fibrillation (HCC) Atrial fibrillation Nonrheumatic aortic valve stenosis Aortic valve disorders Aortic valve disorder Aortic valve disorders [facility] Diagnosis penitentiary (current) use of anticoagulants- Primary Long-term (current) use of anticoagulants Paroxysmal atrial fibrillation (HCC) [facility] Essential hypertension with goal blood pressure less than 140/90 [facility]* Diagnosis penitentiary (current) use of anticoagulants- Primary Long-term (current) use of anticoagulants Paroxysmal atrial fibrillation (HCC) Atrial [facility]* Diagnosis Bilateral carotid artery stenosis- Primary Occlusion and stenosis of carotid artery without mention of cerebral infarction [facility]* 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- Primary Long-term (current) [...] for COVID-19 vaccine [facility] Diagnosis Syncope, unspecified syncope type- Primary Aortic valve disorder Aortic valve disorders [facility] Diagnosis Paroxysmal atrial fibrillation (HCC) Atrial fibrillation Essential hypertension with goal blood pressure less than 140/90 Benign prostatic hyperplasia without lower urinary tract symptoms Mixed dementia (HCC) Lung nodule Solitary pulmonary nodule Type 2 diabetes mellitus with stage 3 chronic kidney disease, without long-term current use of insulin (HCC) [facility]* Diagnosis Essential hypertension with goal blood pressure less than 140/90 [facility]* Diagnosis penitentiary (current) use of anticoagulants- Primary Long-term (current) use of anticoagulants Paroxysmal atrial fibrillation (HCC) Atrial fibrillation [facility]* Diagnosis Onychomycosis- Primary Dermatophytosis of nail [...] kidney disease (HCC) [facility]* Diagnosis Renal insufficiency- Primary Unspecified disorder of kidney and ureter [facility] Diagnosis penitentiary (current) use of anticoagulants- Primary Long-term (current) use of anticoagulants Paroxysmal atrial fibrillation (HCC) Atrial fibrillation [facility] 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- Primary Long-term (current) use of anticoagulants Paroxysmal atrial fibrillation (HCC) Atrial fibrillation [facility]* Diagnosis Abrasion of arm, left, initial encounter- Primary Chronic insomnia Insomnia, unspecified [facility] Diagnosis Essential hypertension with goal blood pressure less than 140/90 Paroxysmal atrial fibrillation (HCC) Atrial fibrillation [facility] Diagnosis Lung nodule Solitary pulmonary nodule [facility]* Diagnosis penitentiary (current) use of anticoagulants- Primary Long-term (current) use of anticoagulants Paroxysmal atrial fibrillation (HCC) Atrial fibrillation [facility]* Diagnosis Syncope, unspecified syncope type- Primary Aortic valve disorder Aortic valve disorders Paroxysmal atrial fibrillation (HCC) Atrial fibrillation Ectatic thoracic aorta (HCC) 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, without long-term current use of insulin ([facility]) [facility]* Diagnosis Essential hypertension- Primary Unspecified essential [...] or 3b CKD (HCC) Mixed dementia (HCC) penitentiary (current) use of anticoagulants Long-term (current) use of anticoagulants Obesity, Class II, BMI 35-39.9 Obesity, unspecified Renal insufficiency Unspecified disorder of kidney and ureter Anemia, unspecified type [facility]* 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- Primary Long-term (current) use of anticoagulants Paroxysmal atrial fibrillation (HCC) Atrial fibrillation [facility]* Diagnosis CKD (chronic kidney disease) stage 4, 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/min ([facility])- Primary Chronic kidney disease, Stage IV (severe) Anemia, unspecified type [facility]* Diagnosis Essential hypertension- Primary Unspecified essential [...] Stage IV (severe) [facility] 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- Primary Long-term (current) use of anticoagulants Paroxysmal atrial fibrillation (HCC) Atrial fibrillation documented in this encounter [facility]* Diagnosis Renal insufficiency Unspecified disorder of kidney and ureter documented in this encounter [facility] note* Diagnosis Essential hypertension- Primary Unspecified essential hypertension Hypertensive kidney disease with stage 3 chronic kidney disease, unspecified whether stage 3a or 3b CKD (HCC) Anemia, unspecified type documented in this encounter [facility] note* 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- Primary Long-term (current) use of anticoagulants Paroxysmal atrial fibrillation (HCC) Atrial fibrillation documented in this encounter [facility] note* Diagnosis Blood pressure check- Primary Screening for hypertension Leg swelling Swelling of limb documented in this encounter [facility] note* Diagnosis Aortic valve stenosis, etiology of cardiac valve disease unspecified- Primary Hypertensive kidney disease with stage 3b chronic kidney disease (HCC) Paroxysmal atrial fibrillation (HCC) Atrial fibrillation Benign prostatic hyperplasia without lower urinary tract symptoms Anemia, unspecified type documented in this encounter [facility] note* 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- Primary Long-term (current) use of anticoagulants Paroxysmal atrial fibrillation (HCC) Atrial fibrillation [facility]* Diagnosis Screen for colon cancer- Primary Special screening for malignant neoplasms, colon documented in this encounter [facility] note* 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- Primary Long-term (current) use of anticoagulants Paroxysmal atrial fibrillation (HCC) Atrial fibrillation documented in this encounter [facility] note* Diagnosis Severe aortic stenosis [I35.0]- Primary Aortic valve disorders Valvular heart disease Endocarditis, valve unspecified, unspecified cause documented in this encounter [facility] note* Diagnosis Nonrheumatic aortic valve stenosis- Primary [...] unspecified, unspecified cause [facility] Diagnosis Nonrheumatic aortic valve stenosis Aortic valve disorders Valvular heart disease Endocarditis, valve unspecified, unspecified cause [facility] Diagnosis Essential hypertension- Primary Unspecified essential [...] disease, Stage IV (severe) Mixed dementia (HCC) penitentiary (current) use of anticoagulants Long-term (current) use of anticoagulants Need for vaccination Need for prophylactic vaccination and inoculation against unspecified single disease Valvular heart disease Endocarditis, valve unspecified, unspecified cause documented in this encounter [facility] note* Diagnosis Essential hypertension- Primary Unspecified essential hypertension Valvular heart disease Endocarditis, valve unspecified, unspecified cause [facility]* Diagnosis Paroxysmal atrial fibrillation (HCC)- Primary Atrial fibrillation Aortic valve stenosis, etiology of cardiac valve disease unspecified Valvular heart disease Endocarditis, valve unspecified, unspecified cause [facility]* Diagnosis Nonrheumatic aortic valve stenosis- Primary Aortic valve disorders Paroxysmal atrial fibrillation (HCC) Atrial fibrillation Valvular heart disease Endocarditis, valve unspecified, unspecified cause [facility]* Diagnosis Nonrheumatic aortic valve stenosis Aortic valve disorders Encounter for preprocedural cardiovascular examination Pre-operative cardiovascular examination [facility]* 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- Primary Long-term (current) use of anticoagulants Paroxysmal atrial fibrillation (HCC) Atrial fibrillation [facility]* Diagnosis Bilateral carotid artery stenosis- Primary Occlusion and stenosis of carotid artery without mention of cerebral infarction History of carotid endarterectomy Other postprocedural status documented [facility]* 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- Primary Long-term (current) use of anticoagulants Paroxysmal atrial fibrillation (HCC) Atrial fibrillation [facility]* Diagnosis Hyperlipidemia, mixed- Primary Mixed hyperlipidemia [...] (HCC) Chronic kidney disease, Stage IV (severe) 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 Long-term (current) use of anticoagulants Obesity, Class II, BMI 35-39.9 Obesity, unspecified Viral conjunctivitis Unspecified diseases of conjunctiva due to viruses Seasonal allergic rhinitis, unspecified trigger Bilateral impacted cerumen Impacted cerumen documented in this encounter [facility] note* 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- Primary Long-term (current) use of anticoagulants Paroxysmal atrial fibrillation (HCC) Atrial fibrillation documented in this encounter [facility] note* Diagnosis Paroxysmal atrial fibrillation (HCC) Atrial fibrillation documented in this encounter [facility] for referral (narrative)* Outpatient Procedure (Routine) - Pending Review Specialty Diagnoses / Procedures Referred By Contac t Referred To Contact [facility] [place] Diagnoses Bilateral carotid artery stenosis Procedures US CAROTID ARTERIES GRAY VAS LAB DUPLEX SCAN EXTRACRANIAL ART COMPL BI STUDY Alondra Prescott DO [address] [place] [address] [facility] [place] [address] Referral ID Status Reason Start Date Expiration Date Visits Requested Visits Authorized [id number] Pending Review Auto-Generat ed Referral 03/18/2022 03/16/2023 1 1 [facility] for referral (narrative)* Outpatient Procedure (Routine) - Authorized Specialty Diagnoses / Procedures Referred By Contac t Referred To Contact [facility] [place] Diagnoses Nonrheumatic aortic valve stenosis Procedures ECHO ECHO TTHRC R-T 2D W/WOM-MODE COMPL SPEC&COLR Pam Velazco MD [address] [place] [address] [facility] [address] [address] Referral ID Status Reason Start Date Expiration Date Visits Requested Visits Authorized [id number] Authorized Auto-Generat ed Referral 08/22/2022 08/15/2023 1 1 [facility] for referral (narrative)* Outpatient Procedure (Routine) - Pending Review Specialty Diagnoses / Procedures Referred By Contac t Referred To Contact [facility] Diagnoses Bilateral carotid artery stenosis Procedures US CAROTID ARTERIES GRAY VAS LAB DUPLEX SCAN EXTRACRANIAL ART COMPL BI STUDY Alondra Prescott DO [address] [place] [address] [address] Referral ID Status Reason Start Date Expiration Date Visits Requested Visits Authorized [id number] Pending Review Auto-Generat ed Referral 2 10/04/2023 1 1 [facility] for referral (narrative)* Outpatient Procedure (Routine) - Authorized Specialty Diagnoses / Procedures Referred By Contac t Referred To Contact [facility] Diagnoses Syncope, unspecified syncope type Aortic valve disorder Procedures ECHO ECHO TTHRC R-T 2D W/WOM-MODE COMPL SPEC&COLR D Pam Reddy MD [address] [place] [address] [facility] [address] [place] [address] Referral ID Status Reason Start Date Expiration Date Visits Requested Visits Authorized [id number] Authorized Auto-Generat ed Referral 02/20/2023 02/13/2024 1 1 [facility] for referral (narrative)* Outpatient Procedure (Routine) - Pending Review Specialty Diagnoses / Procedures Referred By Contac t Referred To Contact [facility] Diagnoses Syncope, unspecified syncope type Aortic valve disorder Procedures ECHO ECHO TTHRC R-T 2D W/WOM-MODE COMPL SPEC&COLR D Pam Reddy MD [address], [address] [place] [address] [facility] [place] [address] [place] [address] Referral ID Status Reason Start Date Expiration Date Visits Requested Visits Authorized [id number] Pending Review Auto-Generat ed Referral 04/08/2024 03/25/2025 1 1 * Outpatient Procedure (Routine) - Pending Review Specialty Diagnoses / Procedures Referred By Contac t Referred To Contact [facility] [place] Diagnoses Syncope, unspecified syncope type Aortic valve disorder Paroxysmal atrial fibrillation (HCC) Procedures ECG COMPLETE ECG ROUTINE ECG W/LEAST 12 LDS W/I&R Pam Reddy MD [address], [address] [place] [address] [facility] [place] [address] [place] [address] Referral ID Status Reason Start Date Expiration Date Visits Requested Visits Authorized [id number] Pending Review Auto-Generat ed Referral 03/21/2024 03/21/2025 1 1 [facility] for referral (narrative)* Diagnostic Procedure Only (Routine) - Authorized Specialty Diagnoses / Procedures Referred By Contac t Referred To Contact [facility] Diagnoses Renal insufficiency Procedures US KIDNEY/BLADDER US RETROPERITONEAL REAL TIME W/IMAGE COMPLETE Guanakito Reno MD [address] [place] [address] [place] [address] Referral ID Status Reason Start Date Expiration Date Visits Requested Visits Authorized [id number] Authorized Auto-Generat ed Referral 03/26/2024 04/25/2025 1 1 * Outpatient Procedure (Routine) - Pending Review Specialty Diagnoses / Procedures Referred By Contac t Referred [facility] Diagnoses History of carotid endarterectomy Procedures US CAROTID ARTERIES GRAY VAS LAB DUPLEX SCAN EXTRACRANIAL ART COMPL BI STUDY Guanakito Reno MD [address] [place] [address] [facility] [place] [address] [place] [address] Referral ID Status Reason Start Date Expiration Date Visits Requested Visits Authorized [id number] Pending Review Auto-Generat ed Referral 03/26/2024 03/26/2025 1 1 [facility] for referral (narrative)* Diagnostic Procedure Only (Routine) - Closed Specialty Diagnoses / Procedures Referred By Juveac t Referred To Contact [facility] Diagnoses Renal insufficiency Procedures US KIDNEY/BLADDER US RETROPERITONEAL REAL TIME W/IMAGE COMPLETE Guanakito Reno MD [address] [place] [address] [place] [address] Referral ID Status Reason Start Date Expiration Date V isits Requested Visits Authorized [id number] Closed Auto-Generate d Referral 03/26/2024 04/25/2025 1 1 [facility] for referral (narrative)* Diagnostic Procedure Only (Routine) - New Request Specialty Diagnoses / Procedures Referred By Anival t Referred To Contact [facility] Diagnoses Bilateral carotid artery stenosis History of carotid endarterectomy Procedures US CAROTID BILATERAL Laura Iraheta MD [address] [place] [address] [place] [address] Referral ID Status Reason Start Date Expiration Date Visits Requested Visits Authorized [id number] New Request Auto-Generat ed Referral 09/05/2025 1 1 [facility] Summary Purpose Family History No Family History Records Found Relationship Condition Age at Onset Recorded Date/T lillian mother Congestive heart failure Unknown grandfather Cerebrovascular accident (CVA) Unknown Advance Directives No Advanced Directives Records Found Advance Directive Response Recorded Date/ Time Advance Directives No March 06 4:19pm Reason for Referral Specialty Diagnoses / Procedures Referred By Contac t Referred To Contact Diagnoses Mixed dementia (HCC) Guanakito Reno MD [address] [place] [address] Referral ID Status Reason Start Date Expiration Date Visits Re quested Visits Authorized [id number] Closed 1 1 Referral ID Status Reason Start Date Expiration Date Visits Re quested Visits Authorized [id number] Closed 1 1 Specialty Diagnoses / Procedures Referred By Contac t Referred To Contact Podiatry Diagnoses Onychomycosis Procedures CONSULT TO PODIATRY OFFICE/OUTPATIENT [facility] 60-74 MINUTES Guanakito Reno MD [address] [place] [id number] Referral ID Status Reason Start Date Expiration Date Visits Requested Visits Authorized [id number] Pending Review PCP Requested Referral 3 08/13/2024 1 1 Specialty Diagnoses / Procedures Referred By Contac t Referred To Contact Nephrology Diagnoses CKD (chronic kidney disease) stage 4, 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/min ([facility]) Anemia, unspecified type Procedures CONSULT TO NEPHROLOGY OFFICE/OUTPATIENT [facility] 60 MINUTES Guanakito Reno MD [address] [phone] Referral ID Status Reason Start Date Expiration Date Visits Requested Visits Authorized [id number] Authorized PCP Requested Referral 04/05/2024 04/05/2025 1 1 Specialty Diagnoses / Procedures Referred By Contac t Referred To Contact Vascular Surgery Diagnoses Stenosis of left carotid artery Procedures CONSULT TO VASCULAR SURGERY OFFICE/OUTPATIENT [facility] 60 MINUTES Josselyn Mayer, CORPORATE STRATEGY ANALYST.[employer] [address] [place] [address] Laura Iraheta MD [address] [place] [address] Referral ID Status Reason Start Date Expiration Date Visits Requested Visits Authorized [id number] Authorized PCP Requested Referral 07/10/2024 07/10/2025 1 1 Specialty Diagnoses / Procedures Referred By Contac t Referred To Contact Nephrology Diagnoses Chronic kidney disease, unspecified CKD stage Anemia in chronic kidney disease, unspecified CKD stage Procedures CONSULT TO NEPHROLOGY Josselyn Mayer, CORPORATE STRATEGY ANALYST.[facility] [address] [facility] [address] [place] [address] Eladio Remy MD [address] [place] [address] Referral ID Status Reason Start Date Expiration Date Visits Requested Visits Authorized [id number] Ref Not Required PCP Requested Referral 07/10/2024 07/10/2025 1 1 Specialty Diagnoses / Procedures Referred By Contac t Referred To Contact Gerontology Diagnoses Dementia, unspecified dementia severity, unspecified dementia type, unspecified whether behavioral, psychotic, or mood disturbance or anxiety (HCC) Procedures CONSULT TO GERIATRICS OFFICE/OUTPATIENT [facility] 60 MINUTES Josselyn Mayer, CORPORATE STRATEGY ANALYST.[place] [address] [address] [facility] [address] [place] [address] Referral ID Status Reason Start Date Expiration Date Visits Requested Visits Authorized [id number] Authorized PCP Requested Referral 07/10/2024 07/10/2025 1 1 Specialty Diagnoses / Procedures Referred By Contac t Referred To Contact CT IMAGING Diagnoses Nonrheumatic aortic valve stenosis Encounter for preprocedural cardiovascular examination Procedures CTA CHEST (GATED) WO/W IVCON CT ANGIOGRAPHY CHEST W/CONTRAST/NONCONTRAST Josselyn Mayer, CORPORATE STRATEGY ANALYST.[facility] [address] [place] [id number] Fax: Ct Imaging [id number] Referral ID Status Reason Start Date Expiration Date Visits Requested Visits Authorized [id number] Authorized Auto-Generat ed Referral 07/10/2024 08/09/2025 1 1 Specialty Diagnoses / Procedures Referred By Contac t Referred To Contact CT IMAGING Diagnoses Nonrheumatic aortic valve stenosis Encounter for preprocedural cardiovascular examination Procedures CTA ABD/PEL W IVCON CT ANGIO ABD&PLVIS CNTRST MTRL W/WO CNTRST IMGES Josselyn Mayer, CORPORATE STRATEGY ANALYST.[facility] [address] [place] [address] [address] [place] [address] Referral ID Status Reason Start Date Expiration Date Visits Requested Visits Authorized [id number] Authorized Auto-Generat ed Referral 07/10/2024 08/09/2025 1 1 Referral ID Status Reason Start Date Expiration Date V isits Requested Visits Authorized [id number] Closed Auto-Generate d Referral 07/10/2024 08/09/2025 1 1 Referral ID Status Reason Start Date Expiration Date V isits Requested Visits Authorized [id number] Closed Auto-Generate d Referral 07/10/2024 08/09/2025 1 [...] 12:30pm LABWORK April 17, 2025 5:00a m PENITENTIARY LAB WORK April 24, 2025 5: 00am PENITENTIARY LAB WORK April 29, 2025 6: 45am PENITENTIARY LAB WORK May 01, 2025 5: 15am RIGHT HUMERUS May 02, 2025 10:1 1am Room 1 May 02, 2025 10:2 9am PENITENTIARY LAB WORK May 06, 2025 4: 00am PENITENTIARY LAB WORK May 08, 2025 5: 00am PENITENTIARY LAB WORK May 13, 2025 5: 00am PENITENTIARY LAB WORK May 15, 2025 5: 00am PENITENTIARY LAB WORK May 20, 2025 4 :00am [...] section and content) DATE CREATED AUTHOR 04/06/2018 [facility] DATE CREATED AUTHOR AUTHOR'S ORGANIZ ATION 08/03/2025 [facility] DATE CREATED AUTHOR AUTHOR'S ORGANIZ ATION 08/12/2025 [facility] DATE CREATED AUTHOR AUTHOR'S ORGANIZ ATION 08/27/2025 [facility] Source Comments (unrecognize d section and content) In the event this informatio n is protected by the Federal Confidentiality of Alcohol and Drug Abuse Patient Records regulations: The Federal rules restrict any use of the information to criminally investigate or prosecute any alcohol or drug abuse patient.[facility] the event this information is protected by the Federal Confidentiality of Alcohol and Drug Abuse Patient Records regulations: The Federal rules restrict any use of the information to criminally investigate or prosecute any alcohol or drug abuse patient.[facility] HospitalIn the event this information is protected by the Federal Confidentiality of Alcohol and Drug Abuse Patient Records regulations: The Federal rules restrict any use of the information to criminally investigate or prosecute any alcohol or drug abuse patient.[facility] HospitalIn the event this information is protected by the Federal Confidentiality of Alcohol and Drug Abuse Patient Records regulations: The Federal rules restrict any use of the information to criminally investigate or prosecute any alcohol or drug abuse patient.[facility] HospitalIn the event this information is protected by the Federal Confidentiality of Alcohol and Drug Abuse Patient Records regulations: The Federal rules restrict any use of the information to criminally investigate or prosecute any alcohol or drug abuse patient.[facility] HospitalIn the event this information is protected by the Federal Confidentiality of Alcohol and Drug Abuse Patient Records regulations: The Federal rules restrict any use of the information to criminally investigate or prosecute any alcohol or drug abuse patient.[facility] HospitalIn the event this information is protected by the Federal Confidentiality of Alcohol and Drug Abuse Patient Records regulations: The Federal rules restrict any use of the information to criminally investigate or prosecute any alcohol or drug abuse patient.[facility] HospitalIn the event this information is protected by the Federal Confidentiality of Alcohol and Drug Abuse Patient Records regulations: The Federal rules restrict any use of the information to criminally investigate or prosecute any alcohol or drug abuse patient.[facility]In the event this information is protected by the Federal Confidentiality of Alcohol and Drug Abuse Patient Records regulations: The Federal rules restrict any use of the information to criminally investigate or prosecute any alcohol or drug abuse patient.[facility] HospitalIn the event this information is protected by the Federal Confidentiality of Alcohol and Drug Abuse Patient Records regulations: The Federal rules restrict any use of the information to criminally investigate or prosecute any alcohol or drug abuse patient.[facility] HospitalIn the event this information is protected by the Federal Confidentiality of Alcohol and Drug Abuse Patient Records regulations: The Federal rules restrict any use of the information to criminally investigate or prosecute any alcohol or drug abuse patient.[facility] HospitalIn the event this information is protected by the Federal Confidentiality of Alcohol and Drug Abuse Patient Records regulations: The Federal rules restrict any use of the information to criminally investigate or prosecute any alcohol or drug abuse patient.[facility] HospitalIn the event this information is protected by the Federal Confidentiality of Alcohol and Drug Abuse Patient Records regulations: The Federal rules restrict any use of the information to criminally investigate or prosecute any alcohol or drug abuse patient.[facility] HospitalIn the event this information is protected by the Federal Confidentiality of Alcohol and Drug Abuse Patient Records regulations: The Federal rules restrict any use of the information to criminally investigate or prosecute any alcohol or drug abuse patient.[facility] HospitalIn the event this information is protected by the Federal Confidentiality of Alcohol and Drug Abuse Patient Records regulations: The Federal rules restrict any use of the information to criminally investigate or prosecute any alcohol or drug abuse patient.[facility] HospitalIn the event this information is protected by the Federal Confidentiality of Alcohol and Drug Abuse Patient Records regulations: The Federal rules restrict any use of the information to criminally investigate or prosecute any alcohol or drug abuse patient.[facility] HospitalIn the event this information is protected by the Federal Confidentiality of Alcohol and Drug Abuse Patient Records regulations: The Federal rules restrict any use of the information to criminally investigate or prosecute any alcohol or drug abuse patient.[facility] HospitalIn the event this information is protected by the Federal Confidentiality of Alcohol and Drug Abuse Patient Records regulations: The Federal rules restrict any use of the information to criminally investigate or prosecute any alcohol or drug abuse patient.[facility] HospitalIn the event this information is protected by the Federal Confidentiality of Alcohol and Drug Abuse Patient Records regulations: The Federal rules restrict any use of the information to criminally investigate or prosecute any alcohol or drug abuse patient.[facility] HospitalIn the event this information is protected by the Federal Confidentiality of Alcohol and Drug Abuse Patient Records regulations: The Federal rules restrict any use of the information to criminally investigate or prosecute any alcohol or drug abuse patient.[facility] HospitalIn the event this information is protected by the Federal Confidentiality of Alcohol and Drug Abuse Patient Records regulations: The Federal rules restrict any use of the information to criminally investigate or prosecute any alcohol or drug abuse patient.[facility] HospitalIn the event this information is protected by the Federal Confidentiality of Alcohol and Drug Abuse Patient Records regulations: The Federal rules restrict any use of the information to criminally investigate or prosecute any alcohol or drug abuse patient.[facility] HospitalIn the event this information is protected by the Federal Confidentiality of Alcohol and Drug Abuse Patient Records regulations: The Federal rules restrict any use of the information to criminally investigate or prosecute any alcohol or drug abuse patient.[facility] HospitalIn the event this information is protected by the Federal Confidentiality of Alcohol and Drug Abuse Patient Records regulations: The Federal rules restrict any use of the information to criminally investigate or prosecute any alcohol or drug abuse patient.[facility] HospitalIn the event this information is protected by the Federal Confidentiality of Alcohol and Drug Abuse Patient Records regulations: The Federal rules restrict any use of the information to criminally investigate or prosecute any alcohol or drug abuse patient.[facility] HospitalIn the event this information is protected by the Federal Confidentiality of Alcohol and Drug Abuse Patient Records regulations: The Federal rules restrict any use of the information to criminally investigate or prosecute any alcohol or drug abuse patient.[facility] HospitalIn the event this information is protected by the Federal Confidentiality of Alcohol and Drug Abuse Patient Records regulations: The Federal rules restrict any use of the information to criminally investigate or prosecute any alcohol or drug abuse patient.[facility] HospitalIn the event this information is protected by the Federal Confidentiality of Alcohol and Drug Abuse Patient Records regulations: The Federal rules restrict any use of the information to criminally investigate or prosecute any alcohol or drug abuse patient.[facility] HospitalIn the event this information is protected by the Federal Confidentiality of Alcohol and Drug Abuse Patient Records regulations: The Federal rules restrict any use of the information to criminally investigate or prosecute any alcohol or drug abuse patient.[facility] HospitalIn the event this information is protected by the Federal Confidentiality of Alcohol and Drug Abuse Patient Records regulations: The Federal rules restrict any use of the information to criminally investigate or prosecute any alcohol or drug abuse patient.[facility] HospitalIn the event this information is protected by the Federal Confidentiality of Alcohol and Drug Abuse Patient Records regulations: The Federal rules restrict any use of the information to criminally investigate or prosecute any alcohol or drug abuse patient.[facility] HospitalIn the event this information is protected by the Federal Confidentiality of Alcohol and Drug Abuse Patient Records regulations: The Federal rules restrict any use of the information to criminally investigate or prosecute any alcohol or drug abuse patient.[facility] HospitalIn the event this information is protected by the Federal Confidentiality of Alcohol and Drug Abuse Patient Records regulations: The Federal rules restrict any use of the information to criminally investigate or prosecute any alcohol or drug abuse patient.[facility] HospitalIn the event this information is protected by the Federal Confidentiality of Alcohol and Drug Abuse Patient Records regulations: The Federal rules restrict any use of the information to criminally investigate or prosecute any alcohol or drug abuse patient.[facility] HospitalIn the event this information is protected by the Federal Confidentiality of Alcohol and Drug Abuse Patient Records regulations: The Federal rules restrict any use of the information to criminally investigate or prosecute any alcohol or drug abuse patient.[facility] HospitalIn the event this information is protected by the Federal Confidentiality of Alcohol and Drug Abuse Patient Records regulations: The Federal rules restrict any use of the information to criminally investigate or prosecute any alcohol or drug abuse patient.[facility] HospitalIn the event this information is protected by the Federal Confidentiality of Alcohol and Drug Abuse Patient Records regulations: The Federal rules restrict any use of the information to criminally investigate or prosecute any alcohol or drug abuse patient.[facility] HospitalIn the event this information is protected by the Federal Confidentiality of Alcohol and Drug Abuse Patient Records regulations: The Federal rules restrict any use of the information to criminally investigate or prosecute any alcohol or drug abuse patient.[facility] HospitalIn the event this information is protected by the Federal Confidentiality of Alcohol and Drug Abuse Patient Records regulations: The Federal rules restrict any use of the information to criminally investigate or prosecute any alcohol or drug abuse patient.[facility] HospitalIn the event this information is protected by the Federal Confidentiality of Alcohol and Drug Abuse Patient Records regulations: The Federal rules restrict any use of the information to criminally investigate or prosecute any alcohol or drug abuse patient.[facility] HospitalIn the event this information is protected by the Federal Confidentiality of Alcohol and Drug Abuse Patient Records regulations: The Federal rules restrict any use of the information to criminally investigate or prosecute any alcohol or drug abuse patient.[facility] HospitalIn the event this information is protected by the Federal Confidentiality of Alcohol and Drug Abuse Patient Records regulations: The Federal rules restrict any use of the information to criminally investigate or prosecute any alcohol or drug abuse patient.[facility] HospitalIn the event this information is protected by the Federal Confidentiality of Alcohol and Drug Abuse Patient Records regulations: The Federal rules restrict any use of the information to criminally investigate or prosecute any alcohol or drug abuse patient.[facility] HospitalIn the event this information is protected by the Federal Confidentiality of Alcohol and Drug Abuse Patient Records regulations: The Federal rules restrict any use of the information to criminally investigate or prosecute any alcohol or drug abuse patient.[facility] HospitalIn the event this information is protected by the Federal Confidentiality of Alcohol and Drug Abuse Patient Records regulations: The Federal rules restrict any use of the information to criminally investigate or prosecute any alcohol or drug abuse patient.[facility] HospitalIn the event this information is protected by the Federal Confidentiality of Alcohol and Drug Abuse Patient Records regulations: The Federal rules restrict any use of the information to criminally investigate or prosecute any alcohol or drug abuse patient.[facility] HospitalIn the event this information is protected by the Federal Confidentiality of Alcohol and Drug Abuse Patient Records regulations: The Federal rules restrict any use of the information to criminally investigate or prosecute any alcohol or drug abuse patient.[facility] HospitalIn the event this information is protected by the Federal Confidentiality of Alcohol and Drug Abuse Patient Records regulations: The Federal rules restrict any use of the information to criminally investigate or prosecute any alcohol or drug abuse patient.[facility] HospitalIn the event this information is protected by the Federal Confidentiality of Alcohol and Drug Abuse Patient Records regulations: The Federal rules restrict any use of the information to criminally investigate or prosecute any alcohol or drug abuse patient.[facility] HospitalIn the event this information is protected by the Federal Confidentiality of Alcohol and Drug Abuse Patient Records regulations: The Federal rules restrict any use of the information to criminally investigate or prosecute any alcohol or drug abuse patient.[facility] HospitalIn the event this information is protected by the Federal Confidentiality of Alcohol and Drug Abuse Patient Records regulations: The Federal rules restrict any use of the information to criminally investigate or prosecute any alcohol or drug abuse patient.[facility] HospitalIn the event this information is protected by the Federal Confidentiality of Alcohol and Drug Abuse Patient Records regulations: The Federal rules restrict any use of the information to criminally investigate or prosecute any alcohol or drug abuse patient.[facility] HospitalIn the event this information is protected by the Federal Confidentiality of Alcohol and Drug Abuse Patient Records regulations: The Federal rules restrict any use of the information to criminally investigate or prosecute any alcohol or drug abuse patient.[facility] HospitalIn the event this information is protected by the Federal Confidentiality of Alcohol and Drug Abuse Patient Records regulations: The Federal rules restrict any use of the information to criminally investigate or prosecute any alcohol or drug abuse patient.[facility] HospitalIn the event this information is protected by the Federal Confidentiality of Alcohol and Drug Abuse Patient Records regulations: The Federal rules restrict any use of the information to criminally investigate or prosecute any alcohol or drug abuse patient.[facility] HospitalIn the event this information is protected by the Federal Confidentiality of Alcohol and Drug Abuse Patient Records regulations: The Federal rules restrict any use of the information to criminally investigate or prosecute any alcohol or drug abuse patient.[facility] HospitalIn the event this information is protected by the Federal Confidentiality of Alcohol and Drug Abuse Patient Records regulations: The Federal rules restrict any use of the information to criminally investigate or prosecute any alcohol or drug abuse patient.[facility] HospitalIn the event this information is protected by the Federal Confidentiality of Alcohol and Drug Abuse Patient Records regulations: The Federal rules restrict any use of the information to criminally investigate or prosecute any alcohol or drug abuse patient.[facility] HospitalIn the event this information is protected by the Federal Confidentiality of Alcohol and Drug Abuse Patient Records regulations: The Federal rules restrict any use of the information to criminally investigate or prosecute any alcohol or drug abuse patient.[facility] HospitalIn the event this information is protected by the Federal Confidentiality of Alcohol and Drug Abuse Patient Records regulations: The Federal rules restrict any use of the information to criminally investigate or prosecute any alcohol or drug abuse patient.[facility] HospitalIn the event this information is protected by the Federal Confidentiality of Alcohol and Drug Abuse Patient Records regulations: The Federal rules restrict any use of the information to criminally investigate or prosecute any alcohol or drug abuse patient.[facility] HospitalIn the event this information is protected by the Federal Confidentiality of Alcohol and Drug Abuse Patient Records regulations: The Federal rules restrict any use of the information to criminally investigate or prosecute any alcohol or drug abuse patient.[facility] HospitalIn the event this information is protected by the Federal Confidentiality of Alcohol and Drug Abuse Patient Records regulations: The Federal rules restrict any use of the information to criminally investigate or prosecute any alcohol or drug abuse patient.[facility] HospitalIn the event this information is protected by the Federal Confidentiality of Alcohol and Drug Abuse Patient Records regulations: The Federal rules restrict any use of the information to criminally investigate or prosecute any alcohol or drug abuse patient.[facility] HospitalIn the event this information is protected by the Federal Confidentiality of Alcohol and Drug Abuse Patient Records regulations: The Federal rules restrict any use of the information to criminally investigate or prosecute any alcohol or drug abuse patient.[facility] HospitalIn the event this information is protected by the Federal Confidentiality of Alcohol and Drug Abuse Patient Records regulations: The Federal rules restrict any use of the information to criminally investigate or prosecute any alcohol or drug abuse patient.[facility] HospitalIn the event this information is protected by the Federal Confidentiality of Alcohol and Drug Abuse Patient Records regulations: The Federal rules restrict any use of the information to criminally investigate or prosecute any alcohol or drug abuse patient.[facility] HospitalIn the event this information is protected by the Federal Confidentiality of Alcohol and Drug Abuse Patient Records regulations: The Federal rules restrict any use of the information to criminally investigate or prosecute any alcohol or drug abuse patient.[facility] HospitalIn the event this information is protected by the Federal Confidentiality of Alcohol and Drug Abuse Patient Records regulations: The Federal rules restrict any use of the information to criminally investigate or prosecute any alcohol or drug abuse patient.[facility] HospitalIn the event this information is protected by the Federal Confidentiality of Alcohol and Drug Abuse Patient Records regulations: The Federal rules restrict any use of the information to criminally investigate or prosecute any alcohol or drug abuse patient.[facility] HospitalIn the event this information is protected by the Federal Confidentiality of Alcohol and Drug Abuse Patient Records regulations: The Federal rules restrict any use of the information to criminally investigate or prosecute any alcohol or drug abuse patient.[facility] HospitalIn the event this information is protected by the Federal Confidentiality of Alcohol and Drug Abuse Patient Records regulations: The Federal rules restrict any use of the information to criminally investigate or prosecute any alcohol or drug abuse patient.[facility] HospitalIn the event this information is protected by the Federal Confidentiality of Alcohol and Drug Abuse Patient Records regulations: The Federal rules restrict any use of the information to criminally investigate or prosecute any alcohol or drug abuse patient.[facility] HospitalIn the event this information is protected by the Federal Confidentiality of Alcohol and Drug Abuse Patient Records regulations: The Federal rules restrict any use of the information to criminally investigate or prosecute any alcohol or drug abuse patient.[facility] HospitalIn the event this information is protected by the Federal Confidentiality of Alcohol and Drug Abuse Patient Records regulations: The Federal rules restrict any use of the information to criminally investigate or prosecute any alcohol or drug abuse patient.[facility] HospitalIn the event this information is protected by the Federal Confidentiality of Alcohol and Drug Abuse Patient Records regulations: The Federal rules restrict any use of the information to criminally investigate or prosecute any alcohol or drug abuse patient.[facility] HospitalIn the event this information is protected by the Federal Confidentiality of Alcohol and Drug Abuse Patient Records regulations: The Federal rules restrict any use of the information to criminally investigate or prosecute any alcohol or drug abuse patient.[facility]In the event this information is protected by the Federal Confidentiality of Alcohol and Drug Abuse Patient Records regulations: The Federal rules restrict any use of the information to criminally investigate or prosecute any alcohol or drug abuse patient.[facility]In the event this information is protected by the Federal Confidentiality of Alcohol and Drug Abuse Patient Records regulations: The Federal rules restrict any use of the information to criminally investigate or prosecute any alcohol or drug abuse patient.[facility] HospitalIn the event this information is protected by the Federal Confidentiality of Alcohol and Drug Abuse Patient Records regulations: The Federal rules restrict any use of the information to criminally investigate or prosecute any alcohol or drug abuse patient.[facility] HospitalIn the event this information is protected by the Federal Confidentiality of Alcohol and Drug Abuse Patient Records regulations: The Federal rules restrict any use of the information to criminally investigate or prosecute any alcohol or drug abuse patient.[facility]In the event this information is protected by the Federal Confidentiality of Alcohol and Drug Abuse Patient Records regulations: The Federal rules restrict any use of the information to criminally investigate or prosecute any alcohol or drug abuse patient.[facility]In the event this information is protected by the Federal Confidentiality of Alcohol and Drug Abuse Patient Records regulations: The Federal rules restrict any use of the information to criminally investigate or prosecute any alcohol or drug abuse patient.[facility] HospitalIn the event this information is protected by the Federal Confidentiality of Alcohol and Drug Abuse Patient Records regulations: The Federal rules restrict any use of the information to criminally investigate or prosecute any alcohol or drug abuse patient.[facility] HospitalIn the event this information is protected by the Federal Confidentiality of Alcohol and Drug Abuse Patient Records regulations: The Federal rules restrict any use of the information to criminally investigate or prosecute any alcohol or drug abuse patient.[facility] HospitalIn the event this information is protected by the Federal Confidentiality of Alcohol and Drug Abuse Patient Records regulations: The Federal rules restrict any use of the information to criminally investigate or prosecute any alcohol or drug abuse patient.[facility] HospitalIn the event this information is protected by the Federal Confidentiality of Alcohol and Drug Abuse Patient Records regulations: The Federal rules restrict any use of the information to criminally investigate or prosecute any alcohol or drug abuse patient.[facility] HospitalIn the event this information is protected by the Federal Confidentiality of Alcohol and Drug Abuse Patient Records regulations: The Federal rules restrict any use of the information to criminally investigate or prosecute any alcohol or drug abuse patient.[facility] HospitalIn the event this information is protected by the Federal Confidentiality of Alcohol and Drug Abuse Patient Records regulations: The Federal rules restrict any use of the information to criminally investigate or prosecute any alcohol or drug abuse patient.[facility] HospitalIn the event this information is protected by the Federal Confidentiality of Alcohol and Drug Abuse Patient Records regulations: The Federal rules restrict any use of the information to criminally investigate or prosecute any alcohol or drug abuse patient.[facility] HospitalIn the event this information is protected by the Federal Confidentiality of Alcohol and Drug Abuse Patient Records regulations: The Federal rules restrict any use of the information to criminally investigate or prosecute any alcohol or drug abuse patient.[facility] HospitalIn the event this information is protected by the Federal Confidentiality of Alcohol and Drug Abuse Patient Records regulations: The Federal rules restrict any use of the information to criminally investigate or prosecute any alcohol or drug abuse patient.[facility] HospitalIn the event this information is protected by the Federal Confidentiality of Alcohol and Drug Abuse Patient Records regulations: The Federal rules restrict any use of the information to criminally investigate or prosecute any alcohol or drug abuse patient.[facility] HospitalIn the event this information is protected by the Federal Confidentiality of Alcohol and Drug Abuse Patient Records regulations: The Federal rules restrict any use of the information to criminally investigate or prosecute any alcohol or drug abuse patient.[facility] HospitalIn the event this information is protected by the Federal Confidentiality of Alcohol and Drug Abuse Patient Records regulations: The Federal rules restrict any use of the information to criminally investigate or prosecute any alcohol or drug abuse patient.[facility] HospitalIn the event this information is protected by the Federal Confidentiality of Alcohol and Drug Abuse Patient Records regulations: The Federal rules restrict any use of the information to criminally investigate or prosecute any alcohol or drug abuse patient.[facility] HospitalIn the event this information is protected by the Federal Confidentiality of Alcohol and Drug Abuse Patient Records regulations: The Federal rules restrict any use of the information to criminally investigate or prosecute any alcohol or drug abuse patient.[facility] HospitalIn the event this information is protected by the Federal Confidentiality of Alcohol and Drug Abuse Patient Records regulations: The Federal rules restrict any use of the information to criminally investigate or prosecute any alcohol or drug abuse patient.[facility] HospitalIn the event this information is protected by the Federal Confidentiality of Alcohol and Drug Abuse Patient Records regulations: The Federal rules restrict any use of the information to criminally investigate or prosecute any alcohol or drug abuse patient.[facility] HospitalIn the event this information is protected by the Federal Confidentiality of Alcohol and Drug Abuse Patient Records regulations: The Federal rules restrict any use of the information to criminally investigate or prosecute any alcohol or drug abuse patient.[facility] HospitalIn the event this information is protected by the Federal Confidentiality of Alcohol and Drug Abuse Patient Records regulations: The Federal rules restrict any use of the information to criminally investigate or prosecute any alcohol or drug abuse patient.[facility] HospitalIn the event this information is protected by the Federal Confidentiality of Alcohol and Drug Abuse Patient Records regulations: The Federal rules restrict any use of the information to criminally investigate or prosecute any alcohol or drug abuse patient.[facility] HospitalIn the event this information is protected by the Federal Confidentiality of Alcohol and Drug Abuse Patient Records regulations: The Federal rules restrict any use of the information to criminally investigate or prosecute any alcohol or drug abuse patient.[facility] HospitalIn the event this information is protected by the Federal Confidentiality of Alcohol and Drug Abuse Patient Records regulations: The Federal rules restrict any use of the information to criminally investigate or prosecute any alcohol or drug abuse patient.[facility] HospitalIn the event this information is protected by the Federal Confidentiality of Alcohol and Drug Abuse Patient Records regulations: The Federal rules restrict any use of the information to criminally investigate or prosecute any alcohol or drug abuse patient.[facility] HospitalIn the event this information is protected by the Federal Confidentiality of Alcohol and Drug Abuse Patient Records regulations: The Federal rules restrict any use of the information to criminally investigate or prosecute any alcohol or drug abuse patient.[facility] HospitalIn the event this information is protected by the Federal Confidentiality of Alcohol and Drug Abuse Patient Records regulations: The Federal rules restrict any use of the information to criminally investigate or prosecute any alcohol or drug abuse patient.[facility] HospitalIn the event this information is protected by the Federal Confidentiality of Alcohol and Drug Abuse Patient Records regulations: The Federal rules restrict any use of the information to criminally investigate or prosecute any alcohol or drug abuse patient.[facility] HospitalIn the event this information is protected by the Federal Confidentiality of Alcohol and Drug Abuse Patient Records regulations: The Federal rules restrict any use of the information to criminally investigate or prosecute any alcohol or drug abuse patient.[facility] HospitalIn the event this information is protected by the Federal Confidentiality of Alcohol and Drug Abuse Patient Records regulations: The Federal rules restrict any use of the information to criminally investigate or prosecute any alcohol or drug abuse patient.[facility] HospitalIn the event this information is protected by the Federal Confidentiality of Alcohol and Drug Abuse Patient Records regulations: The Federal rules restrict any use of the information to criminally investigate or prosecute any alcohol or drug abuse patient.[facility] Reason for Visit (unrecogniz ed section and content) Reason Comments Follow Up Specialty Diagnoses / Procedures Referred By Anival aden Referred To Contact Family Practice / FAMILY MEDICINE Diagnoses Follow up/not seen since 02/2020 Procedures 4C EST Self Corrina Lennon APRN.BLADE CHANGER [address] [place] [address] Referral ID Status Reason Start Date Expiration Date V isits Requested Visits Authorized [id number] Closed Patient Cleared - INN Insurance Found [...] Date Comments Population Health Navigation Outreach 06/14/2022 [facility] care gaps Reason Onset Date Comments Anticoagulation 06/06/2022 Home INR Reason Onset Date Comments Anticoagulation 2022 INR result Reason Onset Date Comments Refill Request 07/22/2022 Reason Onset Date Comments Anticoagulation Telephone Fu 08/01/2022 Gabrielle e INR Result Reason Comments Consult Specialty Diagnoses / Procedures Referred By Anival aden Referred To Contact Cardiology / CARD ADMIN [facility] Diagnoses Paroxysmal atrial fibrillation (HCC) Nonrheumatic aortic valve stenosis Procedures CONSULT TO CARDIOLOGY OFFICE/OUTPATIENT [facility] 60-74 MINUTES Corrina Lennon, ÁLVARO.BLADE CHANGER [address] [place] [address] Card Admin [facility] [address] [place] [address] Referral ID Status Reason Start Date Expiration Date V isits Requested Visits Authorized [id number] Closed PCP Requested Referral 02/28/2022 10/15/2022 1 [...] e INR Result Reason Onset Date Comments [facility] RN 2023 Medication Ad herence review per request of payer Reason Onset Date Comments Refill Request 07/04/2023 Reason Comments 6 Month Exam Reason Comments Results Reason Onset Date Comments [facility] RN 09/05/2023 Medication Ad herence review per [...] Telephone Fu 03/07/2024 Reason Onset Date Comments [facility] RN 03/08/2024 Medication ad herence and suspected [...] REAL TIME W/IMAGE COMPLETE Guanakito Reno MD [address] [place] [address] [place] [address] Referral ID Status Reason Start Date Expiration Date V isits Requested Visits Authorized [id number] Closed Auto-Generate d Referral 03/26/2024 04/25/2025 1 1 Reason Comments Follow Up htn- ultrasound on k idneys and labs, family worried about falls Reason Comments Planer Off Bearer - Other Reason Comments Edema Bilateral leg [...] Update Specialty Diagnoses / Procedures Referred By Contraudel t Referred To Contact Diagnoses Valvular heart disease Valvular heart disease [I38] Procedures R & L HRT CATH WINJX HRT ART& L VENTR IMG CORONARY CATH 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 [employer] [address] [place] [address] Referral ID Status Reason Start Date Expiration Date Visits Re quested Visits Authorized [id number] 1 1 Reason Onset Date Comments Anticoagulation [...] e INR Result Reason Comments Faxed to [facility] Reason Onset Date Comments Refill Request 04/08/2025 Reason Comments Patient Question Care Teams (unrecognized sec tion and content) Assembly Adjuster Relationship Specialty Start Date End Date Guanakito Reno MD [address] [place] [address] PCP - General Family Practice 05/24/18 13, Pharmacist [address] [place] [address] Pharmacist Pharmacy 05/31/21 Assembly Adjuster Relationship Specialty Start Date End Date Guanakito Reno MD [address] [place] [address] PCP - General Family Practice 05/24/18 13, Pharmacist [address] [place] [address] Pharmacist Pharmacy 05/31/21 Assembly Adjuster Relationship Specialty Start Date End Date Guanakito Reno MD [address] [place] [address] PCP - General Family Practice 05/24/18 13, Pharmacist [address] [place] [address] Pharmacist Pharmacy 05/31/21 Assembly Adjuster Relationship Specialty Start Date End Date Guanakito Reno MD [address] [place] [address] PCP - General Family Practice 05/24/18 13, Pharmacist [address] [place] [address] Pharmacist Pharmacy 05/31/21 Assembly Adjuster Relationship Specialty Start Date End Date Guanakito Reno MD [address] [place] [address] PCP - General Family Practice 05/24/18 13, Pharmacist [address] [place] [address] Pharmacist Pharmacy 05/31/21 Assembly Adjuster Relationship Specialty Start Date End Date Guanakito Reno MD [address] [place] [address] PCP - General Family Practice 05/24/18 13, Pharmacist [address] [place] [address] Pharmacist Pharmacy 05/31/21 Assembly Adjuster Relationship Specialty Start Date End Date Guanakito Reno MD [address] [place] [address] PCP - General Family Practice 05/24/18 13, Pharmacist [address] [place] [address] Pharmacist Pharmacy 05/31/21 Assembly Adjuster Relationship Specialty Start Date End Date Guanakito Reno MD [address] [place] [address] PCP - General Family Practice 05/24/18 13, Pharmacist [address] [place] [address] Pharmacist Pharmacy 05/31/21 Assembly Adjuster Relationship Specialty Start Date End Date Guanakito Reno MD [address] [place] [address] PCP - General Family Practice 05/24/18 13, Pharmacist [phone] [place] [address], [place] [address] Pharmacist Pharmacy 05/31/21 Assembly Adjuster Relationship Specialty Start Date End Date Guanakito Reno MD [address] [place] [address] PCP - General Family Medicine 05/24/18 13, Pharmacist [address] [place] [address] Pharmacist Pharmacy 05/31/21 Assembly Adjuster Relationship Specialty Start Date End Date Guanakito Reno MD [address] [place] [address] PCP - General Family Medicine 05/24/18 13, Pharmacist [address] [place] [address] Pharmacist Pharmacy 05/31/21 Assembly Adjuster Relationship Specialty Start Date End Date Guanakito Reno MD [address] [place] [address] PCP - General Family Medicine 05/24/18 13, Pharmacist [address] [place] [address] Pharmacist Pharmacy 05/31/21 Assembly Adjuster Relationship Specialty Start Date End Date Guanakito Reno MD [address] [place] [address] PCP - General Family Medicine 05/24/18 13, Pharmacist [address] [place] [address] Pharmacist Pharmacy 05/31/21 Assembly Adjuster Relationship Specialty Start Date End Date Guanakito Reno MD [address] [place] [address] PCP - General Family Medicine 05/24/18 13, Pharmacist [address] [place] [address] Pharmacist Pharmacy 05/31/21 Assembly Adjuster Relationship Specialty Start Date End Date Guanakito Reno MD [address] [place] [address] PCP - General Family Medicine 05/24/18 13, Pharmacist [address] [place] [address] Pharmacist Pharmacy 05/31/21 Assembly Adjuster Relationship Specialty Start Date End Date Guanakito Reno MD [address] [place] [address] PCP - General Family Medicine 05/24/18 13, Pharmacist [address] [place] [address] Pharmacist Pharmacy 05/31/21 Assembly Adjuster Relationship Specialty Start Date End Date Guanakito Reno MD [address] [place] [address] PCP - General Family Medicine 05/24/18 13, Pharmacist [address] [place] [address] Pharmacist Pharmacy 05/31/21 Assembly Adjuster Relationship Specialty Start Date End Date Guanakito Reno MD [address] [place] [address] PCP - General Family Medicine 05/24/18 13, Pharmacist [address] [place] [address] Pharmacist Pharmacy 05/31/21 Assembly Adjuster Relationship Specialty Start Date End Date Guanakito Reno MD [address] [place] [address] PCP - General Family Medicine 05/24/18, Pharmacist [address] [place] [address] Pharmacist Pharmacy 05/31/21 Assembly Adjuster Relationship Specialty Start Date End Date Guanakito Reno MD [address] [place] [address] PCP - General Family Medicine 05/24/18, Pharmacist [phone] [place] [address] Pharmacist Pharmacy 05/31/21 Assembly Adjuster Relationship Specialty Start Date End Date Guanakito Reno MD [address] [place] [address] PCP - General Family Medicine 05/24/18, Pharmacist [address] [place] [address] Pharmacist Pharmacy 05/31/21 Assembly Adjuster Relationship Specialty Start Date End Date Guanakito Reno MD [address] [place] [address] PCP - General Family Medicine 05/24/18, Pharmacist [phone] [place] [address] Pharmacist Pharmacy 05/31/21 Assembly Adjuster Relationship Specialty Start Date End Date Guanakito Reno MD [address] [place] [address] PCP - General Family Medicine 05/24/18 13, Pharmacist [address] [place] [address] Pharmacist Pharmacy 05/31/21 Assembly Adjuster Relationship Specialty Start Date End Date Guanakito Reno MD [address] [place] [address] PCP - General Family Medicine 05/24/18 13, Pharmacist [address] [place] [address] Pharmacist Pharmacy 05/31/21 Assembly Adjuster Relationship Specialty Start Date End Date Guanakito Reno MD [address] [place] [address] PCP - General Family Medicine 05/24/18 13, Pharmacist [address] [place] [address] Pharmacist Pharmacy 05/31/21 Assembly Adjuster Relationship Specialty Start Date End Date Guanakito Reno MD [address] [place] [address] PCP - General Family Medicine 05/24/18 13, Pharmacist [address] [place] [address] Pharmacist Pharmacy 05/31/21 Assembly Adjuster Relationship Specialty Start Date End Date Guanakito Reno MD [address] [place] [address] PCP - General Family Medicine 05/24/18 13, Pharmacist [address] [place] [address] Pharmacist Pharmacy 05/31/21 Assembly Adjuster Relationship Specialty Start Date End Date Guanakito Reno MD [address] [place] [address] PCP - General Family Medicine 05/24/18 13, Pharmacist [address] [place] [address] Pharmacist Pharmacy 05/31/21 Assembly Adjuster Relationship Specialty Start Date End Date Guanakito Reno MD [address] [place] [address] PCP - General Family Medicine 05/24/18 13, Pharmacist [address] [place] [address] Pharmacist Pharmacy 05/31/21 Assembly Adjuster Relationship Specialty Start Date End Date Guanakito Reno MD [address] [place] [address] PCP - General Family Medicine 05/24/18 13, Pharmacist [address] [place] [address] Pharmacist Pharmacy 05/31/21 Assembly Adjuster Relationship Specialty Start Date End Date Guanakito Reno MD [address] [place] [address] PCP - General Family Medicine 05/24/18 13, Pharmacist [address] [place] [address] Pharmacist Pharmacy 05/31/21 Assembly Adjuster Relationship Specialty Start Date End Date Guanakito Reno MD [address] [place] [address] PCP - General Family Medicine 05/24/18 13, Pharmacist [address] [place] [address] Pharmacist Pharmacy 05/31/21 Assembly Adjuster Relationship Specialty Start Date End Date Guanakito Reno MD [address] [place] [address] PCP - General Family Medicine 05/24/18 13, Pharmacist [address] [place] [address] Pharmacist Pharmacy 05/31/21 Assembly Adjuster Relationship Specialty Start Date End Date Guanakito Reno MD [address] [place] [address] PCP - General Family Medicine 05/24/18 13, Pharmacist [address] [place] [address] Pharmacist Pharmacy 05/31/21 Assembly Adjuster Relationship Specialty Start Date End Date Guanakito Reno MD [address] [place] [address] PCP - General Family Medicine 05/24/18 13, Pharmacist [address] [place] [address] Pharmacist Pharmacy 05/31/21 Assembly Adjuster Relationship Specialty Start Date End Date Guanakito Reno MD [address] [place] [address] PCP - General Family Medicine 05/24/18 13, Pharmacist [address] [place] [address] Pharmacist Pharmacy 05/31/21 Assembly Adjuster Relationship Specialty Start Date End Date Guanakito Reno MD [address] [place] [address] PCP - General Family Medicine 05/24/18 13, Pharmacist [address] [place] [address] Pharmacist Pharmacy 05/31/21 Assembly Adjuster Relationship Specialty Start Date End Date Guanakito Reno MD [address] [place] [address] PCP - General Family Medicine 05/24/18, Pharmacist [address] [place] [address] Pharmacist Pharmacy 05/31/21 Assembly Adjuster Relationship Specialty Start Date End Date Guanakito Reno MD [address] [place] [address] PCP - General Family Medicine 05/24/18 13, Pharmacist [address] [place] [address] Pharmacist Pharmacy 05/31/21 Assembly Adjuster Relationship Specialty Start Date End Date Guanakito Reno MD [address] [place] [address] PCP - General Family Medicine 05/24/18 13, Pharmacist [address] [place] [address] Pharmacist Pharmacy 05/31/21 Assembly Adjuster Relationship Specialty Start Date End Date Guanakito Reno MD [address] [place] [address] PCP - General Family Medicine 05/24/18, Pharmacist [address] [place] [address] Pharmacist Pharmacy 05/31/21 Assembly Adjuster Relationship Specialty Start Date End Date Guanakito Reno MD [address] [place] [address] PCP - General Family Medicine 05/24/18, Pharmacist [address] [place] [address] Pharmacist Pharmacy 05/31/21 Assembly Adjuster Relationship Specialty Start Date End Date Guanakito Reno MD [address] [place] [address] PCP - General Family Medicine 05/24/18, Pharmacist [address] [place] [address] Pharmacist Pharmacy 05/31/21 Assembly Adjuster Relationship Specialty Start Date End Date Guanakito Reno MD [address] [place] [address] PCP - General Family Medicine 05/24/18 13, Pharmacist [address] [place] [address] Pharmacist Pharmacy 05/31/21 Assembly Adjuster Relationship Specialty Start Date End Date Guanakito Reno MD [address] [place] [address] PCP - General Family Medicine 05/24/18 13, Pharmacist [address] [place] [address] Pharmacist Pharmacy 05/31/21 Assembly Adjuster Relationship Specialty Start Date End Date Guanakito Reno MD [address] [place] [address] PCP - General Family Medicine 05/24/18 13, Pharmacist [address] [place] [address] Pharmacist Pharmacy 05/31/21 Assembly Adjuster Relationship Specialty Start Date End Date Guanakito Reno MD [address] [place] [address] PCP - General Family Medicine 05/24/18 13, Pharmacist [address] [place] [address] Pharmacist Pharmacy 05/31/21 Assembly Adjuster Relationship Specialty Start Date End Date Guanakito Reno MD [address] [place] [address] PCP - General Family Medicine 05/24/18 13, Pharmacist [address] [place] [address] Pharmacist Pharmacy 05/31/21 Assembly Adjuster Relationship Specialty Start Date End Date Guanakito Reno MD [address] [place] [address] PCP - General Family Medicine 05/24/18 13, Pharmacist [address] [place] [address] Pharmacist Pharmacy 05/31/21 Assembly Adjuster Relationship Specialty Start Date End Date Guanakito Reno MD [address] [place] [address] PCP - General Family Medicine 05/24/18 13, Pharmacist [address] [place] [address] Pharmacist Pharmacy 05/31/21 Assembly Adjuster Relationship Specialty Start Date End Date Guanakito Reno MD [address] [place] [address] PCP - General Family Medicine 05/24/18 13, Pharmacist [address] [place] [address] Pharmacist Pharmacy 05/31/21 Assembly Adjuster Relationship Specialty Start Date End Date Guanakito Reno MD [address] [place] [address] PCP - General Family Medicine 05/24/18 13, Pharmacist [address] [place] [address] Pharmacist Pharmacy 05/31/21 Corrina Lennon APRN.BLADE CHANGER [address] [place] [address] Power System Operator Family Medicine 09/23/24 Carolina Landeros APRN.BLADE CHANGER [address] [place] [address] Power System Operator Family Medicine 09/23/24 Assembly Adjuster Relationship Specialty Start Date End Date Guanakito Reno MD [address] [place] [address] PCP - General Family Medicine 05/24/18 13, Pharmacist [address] [place] [address] Pharmacist Pharmacy 05/31/21 Corrina Lennon APRN.BLADE CHANGER [address] [place] [address] Power System Operator Family Medicine 09/23/24 Carolina Landeros APRN.BLADE CHANGER [address] [place] [address] Power System Operator Family Medicine 09/23/24 Assembly Adjuster Relationship Specialty Start Date End Date Guanakito Reno MD [address] [place] [address] PCP - General Family Medicine 05/24/18 13, Pharmacist [address] [place] [address] Pharmacist Pharmacy 05/31/21 Corrina Lennon CORPORATE STRATEGY ANALYST.BLADE CHANGER [address] [place] [address] Power System Operator Family Medicine 09/23/24 Carolina Landeros CORPORATE STRATEGY ANALYST.BLADE CHANGER [address] [place] [address] Power System Operator [facility] 09/23/24 Assembly Adjuster Relationship Specialty Start Date End Date Guanakito Reno MD [address] [place] [address] PCP - General Family Medicine 05/24/18 13, Pharmacist [address] [place] [address] Pharmacist Pharmacy 05/31/21 Corrina Lennon APRN.BLADE CHANGER [address] [place] [address] Power System Operator Family Medicine 09/23/24 Carolina Landeros APRN.BLADE CHANGER [address] [place] [address] Power System Operator Family Medicine 09/23/24 Assembly Adjuster Relationship Specialty Start Date End Date Guanakito Reno MD [address] [place] [address] PCP - General Family Medicine 05/24/18 13, Pharmacist [address] [place] [address] Pharmacist Pharmacy 05/31/21 Corrina Lennon APRN.BLADE CHANGER [address] [place] [address] Power System Operator Family Medicine 09/23/24 Carolina Landeros APRN.BLADE CHANGER [address] [place] [address] Power System Operator Family Medicine 09/23/24 Assembly Adjuster Relationship Specialty Start Date End Date Guanakito Reno MD [address] [place] [address] PCP - General Family Medicine 05/24/18 13, Pharmacist [id number] [place] [address] Pharmacist Pharmacy 05/31/21 Corrina Lennon APRN.BLADE CHANGER [address] [place] [address] Power System Operator Family Medicine 09/23/24 Carolina Landeros CORPORATE STRATEGY ANALYST.BLADE CHANGER [address] [place] [address] Power System Operator Family [facility] 09/23/24 Assembly Adjuster Relationship Specialty Start Date End Date Guanakito Reno MD [address] [place] [address] PCP - General Family Medicine 05/24/18 13, Pharmacist [phone] [place] [address] Pharmacist Pharmacy 05/31/21 Corrina Lennon APRN.BLADE CHANGER [address] [facility] [place] [address] Power System Operator Family Medicine 09/23/24 Carolina Landeros APRN.BLADE CHANGER [address] [place] [address] Power System Operator Family Medicine 09/23/24 Assembly Adjuster Relationship Specialty Start Date End Date Guanakito Reno MD [address] [place] [address] PCP - General Family Medicine 05/24/18 13, Pharmacist [id number] [place] [address] Pharmacist Pharmacy 05/31/21 Corrina Lennon APRN.BLADE CHANGER [address] [place] [address] Power System Operator [facility] Medicine 09/23/24 Carolina Landeros APRN.BLADE CHANGER [address] [place] [address] [facility] Assembly Adjuster Relationship Specialty Start Date End Date Guanakito Reno MD [address] [place] [address] PCP - General Family Medicine 05/24/18 13, Pharmacist [phone] [place] [address] Pharmacist Pharmacy 05/31/21 Corrina Lennon APRN.BLADE CHANGER [address] [place] [address] Power System Operator Family Medicine 09/23/24 Carolina Landeros APRN.BLADE CHANGER [address] [place] [address] Power System Operator Family Medicine 09/23/24 Assembly Adjuster Relationship Specialty Start Date End Date Guanakito Reno MD [address] [place] [address] PCP - General Family Medicine 05/24/18 13, Pharmacist [address] [place] [address] Pharmacist Pharmacy 05/31/21 Corrina Lennon CORPORATE STRATEGY ANALYST.BLADE CHANGER [address] [place] [address] Power System Operator [facility] Medicine 09/23/24 Carolina Landeros CORPORATE STRATEGY ANALYST.BLADE CHANGER [address] [place] [address] [facility]/24 Assembly Adjuster Relationship Specialty Start Date End Date Guanakito Reno MD [address] [place] [address] PCP - General Family Medicine 05/24/18 13, Pharmacist [id number] [place] [address] Pharmacist Pharmacy 05/31/21 Corrina Lennon CORPORATE STRATEGY ANALYST.BLADE CHANGER [address] [place] [address] Power System Operator Family Medicine 09/23/24 Carolina Landeros CORPORATE STRATEGY ANALYST.BLADE CHANGER [address] [place] [address] Power System Operator Family Medicine 09/23/24 Assembly Adjuster Relationship Specialty Start Date End Date Guanakito Reno MD [address] [place] [address] PCP - General Family Medicine 05/24/18 13, Pharmacist [id number] [place] [address] Pharmacist Pharmacy 05/31/21 Corrina Lennon, CORPORATE STRATEGY ANALYST.BLADE CHANGER [address] [facility], [place] [address] Power System Operator [facility] 09/23/24 Carolina Landeros, CORPORATE STRATEGY ANALYST.BLADE CHANGER [address] [facility], [place] [address] Power System Operator [facility] 09/23/24 Team Status: Active Member Role/Relationship Status [...] THE PRIMARY CLINICAL RECORDS. [facility] [employer] provides no warranty or guarantee of the accuracy or completeness of information in this document.
[2025-09-02 08:02] LABS: INR Fingerstick 1.6
== END ==
LOC: OLS.SW 05:00
PROVIDERS: PCP Family Medicine; Visit Provider Internal Medicine
DX: I48.91 Unspecified atrial fibrillation (principal)
CPT/HCPCS: 36416; 85610

== ENCOUNTER → 2025-09-04 | Outpatient (REF) | payer MEDICARE, SELFPAY ==
[2025-09-04 10:29] LABS: Prothrombin Time (Protime)PT. 18.7 SECONDS (11.7-14.9)
== END ==
LOC: OLS.SW 08:05
PROVIDERS: PCP Family Medicine; Visit Provider Family Medicine
DX: I48.91 Unspecified atrial fibrillation (principal); Z79.899 Other long term (current) drug therapy; Z79.01 Long term (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
CPT/HCPCS: 36415; 85610

== ENCOUNTER → 2025-09-08 | Outpatient (REF) | payer MEDICARE, SELFPAY ==
[2025-09-08 08:43] LABS: Prothrombin Time (Protime)PT. 21.1 SECONDS (11.7-14.9)
== END ==
LOC: OLS.SW 07:20
PROVIDERS: PCP Family Medicine; Visit Provider Family Medicine
DX: Z79.01 Long term (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 (principal)
CPT/HCPCS: 85610

== ENCOUNTER → 2025-09-16 05:00 | Outpatient (REF) | payer MEDICARE, SELFPAY ==
--- OUTSIDE RECORDS SUMMARY | 2025-09-16 04:04 | XMS RPT_ITS | CCD ---
Author Organization [facility] Care Team Providers Care Library Technology Instructor Name Role Phone VIPIN CARDONA Unavailable Unavailable [...] Guanakito Reno MD Primary Care Provider Haagen LEDGER CLERK.BINGO FLOATER, Corrina Unavailable Suppan LEDGER CLERK.BINGO FLOATER, Carolina A Unavailable Suppan LEDGER CLERK.BINGO FLOATER, Carolina A Unavailable Dr. Guanakito Reno MD [...] ilable SHADIA, GUANAKITO J Primary Care Unavailable [place], Guanakito Referring Unavailable David Navarrete Attending Unavailable [place], Guanakito Primary Care Unavailable Burt Zamora Attending Unavailable Shadia, Guanakito Primary Care Unavailable Bianka Olivera Attending Unavailable [place], Guanakito Primary Care Unavailable Josafat Oliva Attending Unavailable [place], Guanakito Primary Care Unavailable Bianka Olivera Attending Unavailable [place], Guanakito Primary Care Unavailable Josafat Oliva Attending Unavailable Shadia, Guanakito Primary Care Unavailable Josafat Oliva Attending Unavailable [place], Guanakito Primary Care Unavailable Josafat Oliva Attending Unavailable Shadia, Guanakito Primary Care Unavailable Raquel, Josafat Referring Unavailable Raquel, Josafat Attending Unavailable [place], Guanakito Primary Care Unavailable Josafat Oliva Referring Unavailable Shadia, Guanakito Primary Care Unavailable Josafat Oliva Attending Unavailable Josafat Oliva Attending Unavailable [place], Guanakito Primary Care Unavailable Josafat Oliva Attending Unavailable [place], Guanakito Primary Care Unavailable [place], Guanakito Primary Care Unavailable Josafat Oliva Attending Unavailable Josafat Oliva Attending Unavailable Shadia, Guanakito Primary Care Unavailable [place], Guanakito Primary Care Unavailable Josafat Oliva Attending Unavailable Josafat Oliva Attending Unavailable Shadia, Guanakito Primary Care Unavailable Josafat Oliva Attending Unavailable [place], Guanakito Primary Care Unavailable Josafat Oliva Referring Unavailable Josafat Oliva Attending Unavailable [place], Guanakito Primary Care Unavailable Josafat Oliva Attending Unavailable Shadia, Guanakito Primary Care Unavailable Josafat Oliva Attending Unavailable [place], Guanakito Primary Care Unavailable Josafat Oliva Referring Unavailable Josafat Oliva Attending Unavailable Shadia, Guanakito Primary Care Unavailable Josafat Oliva Attending Unavailable [place], Guanakito Primary Care Unavailable SimonJosafat Barahona Attending Unavailable Shadia, Guanakito Primary Care Unavailable Josafat Oliva Attending Unavailable Shadia, Guanakito Primary Care Unavailable [place], Guanakito Referring Unavailable Mollison, Josafat Attending Unavailable [place], Guanakito Primary Care Unavailable Allergies Allergy Classification Reported Allergen(s) Allergy Type Date of Onset Reaction(s) Facility (4 sources) Environmental Allergies: Uncoded; Translations: [Environmental Allergies: Uncoded] Allergy to substance [facility] Medications Current Medications Medication Drug Class(es) Dates [...] hydrochloride 10 mg oral tablet (20 sources) U-zlglfv-V-aspart ate Receptor Antagonist Start: 08-21-2019 End: 01-21-2025 [...] sources) [facility]PC (current) use of anticoagulants; Translations: [terminologist (current) use of anticoagulants] Onset: 0 Episodic Other aftercare (1 source) Other prison (current) drug therapy; Translations: [Other buttermaker continuous churn (current) drug therapy] Onset: 5 Episodic Other [...] sources) Long-term current use of anticoagulant; Translations: [[facility]PC (current) use of anticoagulants] Onset: 02-04-2020 02-04-2020 [...] Coag (PPP) [Relative time] 1.6 {INR} Normal [facility] Comment on above: Order Comment: 317.1 Performed By: #### L 300.3900 #### [facility] [address] [place], [place], [id number] PT Coag (PPP) [Time] 19.6 s High 11.7-14.9 [facility] Comment on above: Order Comment: 317.1 Performed By: #### L 300.3900 #### [facility] [address] [place], [address] Prothrombin Time w/INRon INR Coag (PPP) [Relative time] 1.7 {INR} Normal [facility] Comment on above: Order Comment: 317.1 Performed By: #### L 300.3900 #### [facility] [address] [place], [address] PT Coag (PPP) [Time] 20.1 s High 11.7-14.9 [facility] Comment on above: Order Comment: 317.1 Performed By: #### L 300.3900 #### [facility] [address] [place], [place], [address] Protime w/INR Fingerstickon 08-14-2025 INR Coag (PPP) [Relative time] 1.9 {INR} Normal [facility] Comment on above: Result Comment: Crit ical Value > 4.0 Performed By: #### L 300.3900 #### [facility] [address] [place], [place], [address] Protime Coagsen 21.4 SEC High 11.7-14.9 [facility] Comment on above: Performed By: #### L 300.3900 #### [facility] [address] [place], [place], [address] CNPNon 08-11-2025 [facility] Telephone ([employer]) -------- CAL MITCHELL ([id number]) 1945 M Date Time Provider Department 08/11/25 LAURA IRAHETA During your visit today, we recorded the following information about you: Jimmy Kwon 08/11/2025 10:52 AM Signed Annual f/u - Bilateral carotid artery stenosis, hx of carotid endarterectomy - US PRIOR Spoke w/daughter first - stated he was now a resident of [facility]. Updated pt's demographics with new info/ph numbers. Transferred to and left detailed VM with [place]'s air transportation provider, Yanci (schedule's resident's appts) to schedule pt's [...] stenosis of unspecified carotid a*10/25/2013 03/26/2024 Frequency [[id number]] 02/11/2016 03/26/2024 BPH (benign prostatic hypertrophy) with [...] on 08/11/25 [facility] CNPIndu 08-01-2025 [facility] Telephone ([facility]) -------- CAL MITCHELL ([id number]) 1945 M Date Time Provider Department 08/01/25 GUANAKITO [facility] During your visit today, we recorded the following information about you: Olivia Heredia, RN 08/01/2025 10:33 AM Signed Patient's son Gustavo calling in asking for advise from Dr. Reno, for patient. Gustavo states patient is now receiving prison care at [facility] and his care is being managed [...] 3 years, if needed? Please advise sonGustavo. [phone] Guanakito Reno MD 08/01/2025 11:00 AM Signed [...] Fully Assessed Reason for Visit: Patient Question [3622] Prescriptions as of 08/01/2025 - warfarin (COUMADIN) [...] stenosis of unspecified carotid a*10/25/2013 03/26/2024 Frequency [[id number]] 02/11/2016 03/26/2024 BPH (benign prostatic hypertrophy) with [...] Hypertensive kidney disease with stage 3 chroni*01/29/2020 terminologist (current) use of anticoagulants [Z79.*02/04/2020 Dementia, vascular, mixed, with behavioral dist*08/26/2020 08/14/2023 Obesity, Class II, BMI 35-39.9 [E66.812] 08/15/2022 Aortic valve disorder [I35.9] 08/15/2022 Abnormal electrocardiography [R94.31] 08/14/2023 Diagnosed: 08/14/2023 First de (more content not included)... Normal [facility] Prothrombin Time w/INRon INR Coag (PPP) [Relative time] 2.0 {INR} Normal [facility] Comment on above: Order Comment: 317.1 Performed By: #### L 300.3900 #### [facility] [address] [place], [address] PT Coag (PPP) [Time] 22.7 s High 11.7-14.9 [facility] Comment on above: Order Comment: 317.1 Performed By: #### L 300.3900 #### [facility] [address] [place], [address] Protime w/INR Fingerstickon 07-17-2025 INR Coag (PPP) [Relative time] 2.0 {INR} Normal [facility] Comment on above: Result Comment: Crit ical Value > 4.0 Performed By: #### L 300.3900 #### [facility] [address] [place], [address] Protime Coagsen 22.3 SEC High 11.7-14.9 [facility] Comment on above: Performed By: #### L 300.3900 #### [facility] [address] [place], [address] Prothrombin Time w/INRon INR Coag (PPP) [Relative time] 2.0 {INR} Normal [facility] Comment on above: Order Comment: 317.1 Performed By: #### L 300.3900 #### [facility] [address] [place], [address] PT Coag (PPP) [Time] 22.8 s High 11.7-14.9 [facility] Comment on above: Order Comment: 317.1 Performed By: #### L 300.3900 #### [facility] [address] [place], [address] Prothrombin Time w/INRon INR Coag (PPP) [Relative time] 2.1 {INR} Normal [facility] Comment on above: Performed By: #### L 300.3900 #### [facility] [address] [place], [address] PT Coag (PPP) [Time] 24.2 s High 11.7-14.9 [facility] Comment on above: Performed By: #### L 300.3900 #### [facility] [address] [place], [address] Protime w/INR Fingerstickon 06-17-2025 INR Coag (PPP) [Relative time] 2.1 {INR} Normal [facility] Comment on above: Result Comment: Crit ical Value > 4.0 Performed By: #### L 9200.0000 #### [facility] [address] [place], [address] Protime Coagsen 22.8 SEC High 11.7-14.9 [facility] Comment on above: Performed By: #### L 9200.0000 #### [facility] [address] [place], [address] Prothrombin Time w/INRon INR Coag (PPP) [Relative time] 1.9 {INR} Normal [facility] Comment on above: Order Comment: 317.1 Performed By: #### L 300.3900 #### [facility] [address] [place], [address] PT Coag (PPP) [Time] 22.4 s High 11.7-14.9 [facility] Comment on above: Order Comment: 317.1 Performed By: #### L 300.3900 #### [facility] [address] [place], [address] Prothrombin Time w/INRon INR Normal [facility] Comment on above: Result Comment: ANTONINO JONES SEE [id number] Performed By: #### L 300.3900 #### [facility] [address] [place], [address] PROTIME Normal 11.7-14.9 [facility] Comment on above: Result Comment: ANTONINO JONES SEE [id number] Performed By: #### L 300.3900 #### [facility] [address] [place], [address] International normalized rat io (INR) calculationOrdered By: Josafat Simon on 06-03-2025 INR Coag (Bld) [Relative time] 3.0 {INR} [facility] Prothrombin Time w/INRon INR Coag (PPP) [Relative time] 3.0 {INR} Normal [facility] Comment on above: Order Comment: 317.1 Performed By: #### L 300.3900 #### [facility] [address] [place], [address] PT Coag (PPP) [Time] 31.4 s High 11.7-14.9 [facility] Comment on above: Order Comment: 317.1 Performed By: #### L 300.3900 #### [facility] [address] [place], [address] Prothrombin timeOrdered By: Josafat Simon on 06-03-2025 PT Coag (PPP) [Time] 31.4 s High 11.7-14.9 [facility] International normalized rat io (INR) measurement by fingerstickOrdered By: Josafat Simon on 05-27-2025 INR Coag (BldC) [Relative time] 2.3 [facility] Comment on above: Critical Value > 4.0 Protime w/INR Fingerstickon 05-27-2025 INR Coag (PPP) [Relative time] 2.3 {INR} Normal [facility] Comment on above: Result Comment: Crit ical Value > 4.0 Performed By: #### L 300.3900 #### [facility] [place], [address] Protime Coagsen 24.6 SEC High 11.7-14.9 [facility] Comment on above: Performed By: #### L 300.3900 #### [facility] [address] [place], [address] Whole blood prothrombin time Ordered By: Josafat Simon on 05-27-2025 PT Coag (Bld) [Time] 24.6 s High 11.7-14.9 [facility] International normalized rat io (INR) measurement by fingerstickOrdered By: Josafat Simon on 05-20-2025 INR Coag (BldC) [Relative time] 2.7 [facility] Comment on above: Critical Value > 4.0 Protime w/INR Fingerstickon 05-20-2025 INR Coag (PPP) [Relative time] 2.7 {INR} Normal [facility] Comment on above: Result Comment: Crit ical Value > 4.0 Performed By: #### L 300.3900 #### [facility] [address] [facility] [address] Protime Coagsen 28.2 SEC High 11.7-14.9 [facility] Comment on above: Performed By: #### L 300.3900 #### [facility] [address] [place], [address] Whole blood prothrombin time Ordered By: Josafat Simon on 05-20-2025 PT Coag (Bld) [Time] 28.2 s High 11.7-14.9 [facility] International normalized rat io (INR) calculationOrdered By: Josafat Simon on 05-15-2025 INR Coag (Bld) [Relative time] 2.3 {INR} [facility] Prothrombin Time w/INRon INR Coag (PPP) [Relative time] 2.3 {INR} Normal [facility] Comment on above: Order Comment: 317.1 Performed By: #### L 300.3900 #### [facility] [place], [address] Prothrombin timeOrdered By: Josafat Simon on 05-15-2025 PT Coag (PPP) [Time] 25.3 s High 11.7-14.9 [facility] Comment on above: Order Comment: 317.1 Performed By: #### L 300.3900 #### [facility] [address] [place], [address] International normalized rat io (INR) calculationOrdered By: Josafat Simon on 05-13-2025 INR Coag (Bld) [Relative time] 1.7 {INR} [facility] Prothrombin Time w/INRon INR Coag (PPP) [Relative time] 1.7 {INR} Normal [facility] Comment on above: Order Comment: 317.1 Performed By: #### L 300.3900 #### [facility] [address] [place], [address] PT Coag (PPP) [Time] 20.6 s High 11.7-14.9 [facility] Comment on above: Order Comment: 317.1 Performed By: #### L 300.3900 #### [facility] [address] [place], [address] Prothrombin timeOrdered By: Josafat Simon on 05-13-2025 PT Coag (PPP) [Time] 20.6 s High 11.7-14.9 [facility] International normalized rat io (INR) calculationOrdered By: Josafat Simon on 05-08-2025 INR Coag (Bld) [Relative time] 3.2 {INR} [facility] Prothrombin Time w/INRon INR Coag (PPP) [Relative time] 3.2 {INR} Normal [facility] Comment on above: Order Comment: 317.1 Performed By: #### L 300.3900 #### [facility] [address] [place], [address] PT Coag (PPP) [Time] 33.1 s High 11.7-14.9 [facility] Comment on above: Order Comment: 317.1 Performed By: #### L 300.3900 #### [facility] [address] [place], [address] Prothrombin timeOrdered By: Josafat Simon on 05-08-2025 PT Coag (PPP) [Time] 33.1 s High 11.7-14.9 [facility] International normalized rat io (INR) calculationOrdered By: Josafat Simon on 05-06-2025 INR Coag (Bld) [Relative time] 4.1 {INR} High [facility] Comment on above: CRITICAL VALUE ZABALA D TO IRMA SOLOMON (OLS.SW)05/06/25 0801 Travis OrtizRESULTS READ BACK BY SAME. Prothrombin Time w/INRon INR Coag (PPP) [Relative time] 4.1 {INR} Invalid Interpretation Code [facility] Comment on above: Order Comment: FLORES RSTICK CONFIRMATION Result Comment: CRIT ICAL VALUE CALLED TO IRMA SOLOMON (OLS.SW) 05/06/25 0801 Travis Yost. RESULTS READ BACK BY SAME. Performed By: #### L 300.3900 #### [facility] [address] [place], [address] PT Coag (PPP) [Time] 40.8 s High 11.7-14.9 [facility] Comment on above: Order Comment: FINGE RSTICK CONFIRMATION Performed By: #### L 300.3900 #### [facility] [address] [place], [address] Prothrombin timeOrdered By: Josafat Simon on 05-06-2025 PT Coag (PPP) [Time] 40.8 s High 11.7-14.9 [facility] Protime w/INR Fingerstickon 05-06-2025 INR Coag (PPP) [Relative time] 4.3 {INR} Invalid Interpretation Code [facility] Comment on above: Result Comment: Crit ical Value > 4.0 Performed By: #### L 300.3900 #### [facility] [address] [place], [address] Protime Coagsen 42.3 SEC High 11.7-14.9 [facility] Comment on above: Performed By: #### L 300.3900 #### [facility] [address] [place], [address] Whole blood prothrombin time Ordered By: Josafat Simon on 05-06-2025 PT Coag (Bld) [Time] 42.3 s High 11.7-14.9 [facility] Orthopedic Visit Reporton Orthopedic Visit Report [facility] [address] [place] [address] [address] [place], [place] [address] OFFICE VISIT Date of Service: 05/02/25 MR#: [id number] Acct: [id number] Name: CAL MITCHELL Rep #: [id number] : 1945 Provider: Dr. David Borru so, DO Age/Sex: 79/M Location[place] [facility] Status: Signed Intake Vital [...] History acetaminophen 650 mg rectal 650 mg IN Q4H PRN 05/02/25 5 History suppository aluminum-mag hydroxide-simethicone 30 ml PO Q4H PRN 05/02/25 History 200 mg-200 mg-20 mg/5 mL oral susp (Antacid) bisacodyl 10 mg rectal suppository 10 mg IN QDAY PRN 05/02/2505/02 History (Dulcolax (bisacodyl)) dextrose [...] hr sodium phosphates 19 gram-7 118 ml IN ONCE PRN 05/02/25 History gram/118 mL enema [...] is here today with his son and gvkofien-cu-oww. Usually ambulates with a walker or a cane. Had a fall. Was mainly complaining about pain to the upper extremity was seen in a peripheral hospital referred here given a sling they found approximately wrist fracture on the right side. The patient does not speak very much but he converses overall well he is qzwxx-qltg-dsthgsbw fairly stoic. Plan:79-year-old man with a (more content not included)... Normal [facility] Shoulder min 2 Viewson 05-02 Shoulder min 2 Views [facility] [address] [place], [place] [address] Shoulder min 2 Views MR#: [id number] Acct: [id number] Name: CAL MITCHELL Rep #: [id number] : 1945 M 79 From: Magdalena Lala PCP: Dr. Guanakito Reno MD Status: DEP AMB Study: Shoulder min 2 Views Date of Exam: 05/02/25 Exam# [id number] Ordering Dr: David Navarrete DO PROCEDURE: SHOULDER [...] changes involving the glenohumeral joint. Reading Location: [id number] CC: Dr. David Navarrete DO; Dr. Guanakito Reno MD Access Database Developer: Signed Normal [facility] International normalized rat io (INR) calculationOrdered By: Josafat Simon on 05-01-2025 INR Coag (Bld) [Relative time] 3.2 {INR} [facility] Prothrombin Time w/INRon INR Coag (PPP) [Relative time] 3.2 {INR} Normal [facility] Comment on above: Performed By: #### L 300.3900 #### [facility] [address] [facility] [place], [place], [phone] PT Coag (PPP) [Time] 33.6 s High 11.7-14.9 [facility] Comment on above: Performed By: #### L 300.3900 #### [facility] [address] [facility] [address] [place], [place], [phone] Prothrombin timeOrdered By: Josafat Simon on 05-01-2025 PT Coag (PPP) [Time] 33.6 s High 11.7-14.9 [facility] International normalized rat io (INR) calculationOrdered By: Josafat Simon on 04-29-2025 INR Coag (Bld) [Relative time] 3.1 {INR} [facility] Prothrombin Time w/INRon INR Coag (PPP) [Relative time] 3.1 {INR} Normal [facility] Comment on above: Performed By: #### L 300.3900 #### [facility] [address] [place], [place], [phone] ([phone] Prothrombin timeOrdered By: Josafat Simon on 04-29-2025 PT Coag (PPP) [Time] 32.2 s High 11.7-14.9 [facility] Comment on above: Performed By: #### L 300.3900 #### [facility] [address] [place], [address] International normalized rat io (INR) measurement by fingerstickOrdered By: Josafat Simon on 04-24-2025 INR Coag (BldC) [Relative time] 3.5 [facility] Comment on above: Critical Value > 4.0 Protime w/INR Fingerstickon 04-24-2025 INR Coag (PPP) [Relative time] 3.5 {INR} Normal [facility] Comment on above: Result Comment: Crit ical Value > 4.0 Performed By: #### L 300.3900 #### [facility] [address] [place], [address] Protime Coagsen 35.4 SEC High 11.7-14.9 [facility] Comment on above: Performed By: #### L 300.3900 #### [facility] [address] [place], [address] Whole blood prothrombin time Ordered By: Josafat Simon on 04-24-2025 PT Coag (Bld) [Time] 35.4 s High 11.7-14.9 [facility] Anion gap in Serum or Plasma Ordered By: Bianka Gonzalez on 04-17-2025 Anion gap [Moles/Vol] 10 mmol/L - [facility] BUN/creatinine ratioOrdered By: Bianka Gonzalez on 04-17-2025 Urea nitrogen/Creatinine [Mass ratio] 21.1 mg/mg High - [facility] Basic Metabolic Profile (BMP )on 04-17-2025 BUN/CRE 21.1 RATIO High 08-04 [facility] Comment on above: Order Comment: 213 Performed By: #### L 300.3900, L100.0500, L500.2500 #### [facility] [address] [place], [address] Calcium [Mass/Vol] 8.2 mg/dL Normal 7.6-11.0 [facility] Comment on above: Order Comment: 213 Performed By: #### L 300.3900, L100.0500, L500.2500 #### [facility] [address] [place], [address] Chloride [Moles/Vol] 111 mmol/L High 98-108 [facility] Comment on above: Order Comment: 213 Performed By: #### L 300.3900, L100.0500, L500.2500 #### [facility] [address] [place], [address] CO2 [Moles/Vol] 17.2 mmol/L Low 21.0-32.0 [facility] Comment on above: Order Comment: 213 Performed By: #### L 300.3900, L100.0500, L500.2500 #### [facility] [address] [place], [address] Creatinine [Mass/Vol] 2.45 mg/dL High 0.70-1.20 [facility] Comment on above: Order Comment: 213 Performed By: #### L 300.3900, L100.0500, L500.2500 #### [facility] [address] [place], [address] GAP 10 Normal 5-15 [facility] Comment on above: Order Comment: 213 Performed By: #### L 300.3900, L100.0500, L500.2500 #### [facility] [address] [place], [address] GFR/1.73 sq M.predicted among non-blacks MDRD (S/P/Bld) [Vol rate/Area] 26 mL/min/{1.73_m2} Low >60 [facility] Comment on above: Order Comment: 213 Result Comment: mL/m in/1.73m2 CKD-EPI Creatinine Equation (2020) Performed By: #### L 300.3900, L100.0500, L500.2500 #### [facility] [address] [place], [address] Glucose [Mass/Vol] 137 mg/dL High 70-99 [facility] Comment on above: Order Comment: 213 Performed By: #### L 300.3900, L100.0500, L500.2500 #### [facility] [address] [place], [address] Potassium [Moles/Vol] 4.9 mmol/L Normal 3.3-5.1 [facility] Comment on above: Order Comment: 213 Performed By: #### L 300.3900, L100.0500, L500.2500 #### [facility] [address] [place], [address] Sodium [Moles/Vol] 139 mmol/L Normal 133-145 [facility] Comment on above: Order Comment: 213 Performed By: #### L 300.3900, L100.0500, L500.2500 #### [facility] [address] [place], [address] Urea nitrogen [Mass/Vol] 52 mg/dL High 4-19 [facility] Comment on above: Order Comment: 213 Performed By: #### L 300.3900, L100.0500, L500.2500 #### [facility] [address] [place], [address] CBC-Complete Blood Cnt No Di ffon 04-17-2025 Erythrocyte distribution width (RBC) [Ratio] 16.4 % High 11.6-14.6 [facility] Comment on above: Order Comment: 213 Performed By: #### L 300.3900, L100.0500, L500.2500 #### [facility] [address] [place], [address] Hematocrit (Bld) [Volume fraction] 35.2 % Low 40-54 [facility] Comment on above: Order Comment: 213 Performed By: #### L 300.3900, L100.0500, L500.2500 #### [facility] [address] [place], [address] Hemoglobin (Bld) [Mass/Vol] 10.6 g/dL Low 13.0-16.5 [facility] Comment on above: Order Comment: 213 Performed By: #### L 300.3900, L100.0500, L500.2500 #### [facility] [address] [place], [address] MCH (RBC) [Entitic mass] 29.2 pg Normal 27.0-32.0 [facility] Comment on above: Order Comment: 213 Performed By: #### L 300.3900, L100.0500, L500.2500 #### [facility] [address] [place], [address] MCHC (RBC) [Mass/Vol] 30.1 g/dL Low 32-36 [facility] Comment on above: Order Comment: 213 Performed By: #### L 300.3900, L100.0500, L500.2500 #### [facility] [address] [place], [address] MCV (RBC) [Entitic vol] 97.0 fL High 80-94 [facility] Comment on above: Order Comment: 213 Performed By: #### L 300.3900, L100.0500, L500.2500 #### [facility] [address] [place], [address] Platelet mean volume (Bld) [Entitic vol] 10.0 fL Normal 6.2-12.0 [facility] Comment on above: Order Comment: 213 Performed By: #### L 300.3900, L100.0500, L500.2500 #### [facility] [address] [place], [address] Platelets (Bld) [#/Vol] 161 10*3/uL Normal 150-450 [facility] Comment on above: Order Comment: 213 Performed By: #### L 300.3900, L100.0500, L500.2500 #### [facility] [address] [place], [address] RBC (Bld) [#/Vol] 3.63 10*6/uL Low 4.6-6.2 [facility] Comment on above: Order Comment: 213 Performed By: #### L 300.3900, L100.0500, L500.2500 #### [facility] [address] [place], [address] RDW SD 58.6 fl High 35.1-43.9 [facility] Comment on above: Order Comment: 213 Performed By: #### L 300.3900, L100.0500, L500.2500 #### [facility] [address] [place], [address] WBC (Bld) [#/Vol] 7.2 10*3/uL Normal 4.4-11.0 [facility] Comment on above: Order Comment: 213 Performed By: #### L 300.3900, L100.0500, L500.2500 #### [facility] [address] [place], [address] Carbon dioxide, total [Moles /volume] in Central venous bloodOrdered By: Bianka Gonzalez on 04-17-2025 CO2 [Moles/Vol] 17.2 mmol/L Low 21.0-32.0 [facility] Chloride assayOrdered By: Josr Gonzalez on 04-17-2025 Chloride [Moles/Vol] 111 mmol/L High 98-108 [facility] Erythrocyte distribution wid th ratioOrdered By: Bianka Gonzalez on 04-17-2025 Erythrocyte distribution width (RBC) [Ratio] 16.4 % High 11.6-14.6 [facility] Erythrocyte distribution wid th standard deviationOrdered By: Bianka Gonzalez on 04-17-2025 Erythrocyte distribution width (RBC) [Ratio] 58.6 fl High 35.1-43.9 [facility] Glomerular filtration rate ( GFR) estimation/1.73 sq m using serum, plasma, or whole bOrdered By: Bianka Gonzalez on 04-17-2025 GFR/1.73 sq M.predicted among non-blacks MDRD (S/P/Bld) [Vol rate/Area] 26 mL/min/{1.73_m2} Low >60 [facility] Comment on above: mL/min/1.73m2 CKD-EP I Creatinine Equation (2020) Hematocrit Auto (Bld) [Volum e fraction]Ordered By: Bianka Gonzalez on 04-17-2025 Hematocrit (Bld) [Volume fraction] 35.2 % Low 40-54 [facility] Hemoglobin measurementOrdere d By: Bianka Gonzalez on 04-17-2025 Hemoglobin (Bld) [Mass/Vol] 10.6 g/dL Low 13.0-16.5 [facility] International normalized rat io (INR) calculationOrdered By: Bianka Gonzalez on 04-17-2025 INR Coag (Bld) [Relative time] 2.7 {INR} [facility] MCV (mean corpuscular volume ) determinationOrdered By: Bianka Gonzalez on 04-17-2025 MCV (RBC) [Entitic vol] 97.0 fL High 80-94 [facility] Mean corpuscular hemoglobin (MCH) determinationOrdered By: Bianka Gonzalez on 04-17-2025 MCH (RBC) [Entitic mass] 29.2 pg 27.0-32.0 [facility] Mean corpuscular hemoglobin concentration (MCHC) determinationOrdered By: Bianka Gonzalez on 04-17-2025 MCHC (RBC) [Mass/Vol] 30.1 g/dL Low 32-36 [facility] Mean platelet volume determi nationOrdered By: Bianka Gonzalez on 04-17-2025 Platelet mean volume (Bld) [Entitic vol] 10.0 fL 6.2-12.0 [facility] Platelet countOrdered By: Josr Gonzalez on 04-17-2025 Platelets (Bld) [#/Vol] 161 10*3/uL 150-450 [facility] Potassium measurement (mass/ volume)Ordered By: Bianka Gonzalez on 04-17-2025 Potassium (Unsp spec) [Mass/Vol] 4.9 mmol/L 3.3-5.1 [facility] Prothrombin Time w/INRon INR Coag (PPP) [Relative time] 2.7 {INR} Normal [facility] Comment on above: Order Comment: 213 Performed By: #### L 300.3900, L100.0500, L500.2500 #### [facility] [address] [place], [address] PT Coag (PPP) [Time] 29.7 s High 11.7-14.9 [facility] Comment on above: Order Comment: 213 Performed By: #### L 300.3900, L100.0500, L500.2500 #### [facility] [address] [place], [address] Prothrombin timeOrdered By: Bianka Gonzalez on 04-17-2025 PT Coag (PPP) [Time] 29.7 s High 11.7-14.9 [facility] RBC Auto (Bld) [#/Vol]Ordere d By: Bianka Gonzalez on 04-17-2025 RBC (Bld) [#/Vol] 3.63 10*6/uL Low 4.6-6.2 [facility] Serum creatinine measurement (mass/volume)Ordered By: Bianka Gonzalez on 04-17-2025 Creatinine [Mass/Vol] 2.45 mg/dL High 0.70-1.20 [facility] Serum glucose measurement (m ass/volume)Ordered By: Bianka Gonzalez on 04-17-2025 Glucose [Mass/Vol] 137 mg/dL High 70-99 [facility] Serum or plasma calcium cornelius urement (mass/volume)Ordered By: Bianka Gonzalez on 04-17-2025 Calcium [Mass/Vol] 8.2 mg/dL 7.6-11.0 [facility] Serum or plasma urea nitroge n measurement (mass/volume)Ordered By: Bianka Gonzalez on 04-17-2025 Urea nitrogen [Mass/Vol] 52 mg/dL High 4-19 [facility] Sodium levelOrdered By: Venitakeiko rey Lisa on 04-17-2025 Sodium [Moles/Vol] 139 mmol/L 133-145 [facility] White blood cell (WBC) count Ordered By: Bianka Gonzalez on 04-17-2025 WBC (Bld) [#/Vol] 7.2 10*3/uL 4.4-11.0 [facility] CNPNon 04-15-2025 CNPN Telephone (PHAMTE) -------- CAL MITCHELL ([id number]) 1945 M Date Time Provider Department 04/15/25 [place] During your visit today, we recorded the following information about you: Twin Cole [facility] 04/15/2025 9:12 AM Signed [facility] Anticoagulation Episode Summary Anticoagulation Care Providers Provider Role Specialty Phone number Guanakito Reno MD [facility] Family Medicine [phone] Cal Hageroll is a 79 year old [...] Pharmacy Anticoagulation Clinic [facility] Pager: [phone]. Twin Cole RPh 04/29/2025 8:54 AM Signed [...] to patient's daughter. Patient has moved to [facility]. His INRs are monitored there. Will discharge patient from [facility] Daniel ([employer])Ashley 05/06/2025 2:31 PM Signed Pharmacy Anticoagulation Clinic Discharge completed at this time. Patient may be re-referred, if deemed appropriate. Ashley Sanchez; Ubaldo ([employer]) [facility]acy [facility]tico[facility] Allergies As of Date: [...] guidelines link (more content not included)... [facility] Tele[facility] (FAMWS) -------- CAL MITCHELL ([id number]) 1945 M Date Time Provider Department 04/14/25 [facility] During your visit today, we [...] Fully Assessed Reason for Visit: Patient Question [8007] Prescriptions as of 04/14/2025 - warfarin (COUMADIN) [...] Insulin: No - Lancets (ONE TOUCH DELICA) [facility] lancets Test blood sugar(s) one time daily. [...] stenosis of unspecified carotid a*10/25/2013 03/26/2024 Frequency [XTJ8562] 02/11/2016 03/26/2024 BPH (benign prostatic hypertrophy) with [...] included)... [facility] 03-28-2025 [facility] Telephone (FAMPWS) -------- CAL MITCHELL ([id number]) 1945 M Date Time Provider Department 03/28/25 [facility] During your visit today, we recorded the following information about you: Niels Rodriges, BENJIE 03/28/2025 1:06 PM Signed Faxed recent ov notes to [employer] per daughter, January request. . January reports she talked to [facility] about patient going to live there and [facility] instructed her to have pcp office send an H AND P to them for review. Allergies As of Date: 03/28/2025 (No Known Allergies) Date Reviewed: 03/05/2025 Reviewed by: Jack Holcomb, BENJIE - Fully Assessed Reason for Visit: Faxed to [employer] [Other] Prescriptions as of 03/28/2025 - atorvastatin [...] stenosis of unspecified carotid a*10/25/2013 03/26/2024 Frequency [[id number]] 02/11/2016 03/26/2024 BPH (benign prostatic hypertrophy) with [...] Hypertensive kidney disease with stage 3 chroni*01/29/2020 terminologist (current) use of anticoagulants [Z79.*02/04/2020 Dementia, vascular, [...] Encounter Status:Closed by Niels RODRIGES on 03/28/25 [facility] Molly 03-24-2025 LUCIO Telephone (PHAPAE) -------- CAL MITCHELL ([id number]) 1945 M Date Time Provider Department 03/24/25 ALEJANDRO MOLINA During your visit today, we recorded the following information about you: Alejandro Molina RPh 03/24/2025 10:57 AM Signed [facility] Pharmacy Anticoagulation Clinic Anticoagulation Episode Summary Anticoagulation Care Providers Provider Role Specialty Phone number Guanakito Reno MD [facility] [phone] Cal Mitchell is a 79 year old [...] instructed to call [facility] at [phone] with any questions or concerns. Alejandro Molina RPh Clinical Pharmacist, Pharmacy Anticoagulation Clinic Pharmacy Anticoagulation Clinic Pager: [phone] Alejandro Molina RPh 04/07/2025 3:31 PM Signed [...] diabetes mellitu (more content not included)... Normal [facility] Inital Evaluation (1) - PTon 03-24-2025 Inital Evaluation (1) - PT [facility] Physical Therapy [facility] [address] [place] [address] [address] [place] [address] / REHABILITATION SERVICES INITIAL EVALUATION MR#: [id number] Acct: [id number] Name: CAL MITCHELL Rep #: [id number] : 1945 79 From: Rosa MCGRAWT Referring Dr.: Dr. Josafat García MD Status: R EG RCR Insurance: [facility] [address] SELF PAY INSURANCE Patient's Visit Information Visit [...] PROM due to guarding. 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 For Medicare only, by signing this I certify the plan of care. Please let me know if there are questions or concerns regarding this plan of care. Physician Signature: Date: ____ 03/24/25 1256 CC: Dr. Josafat García MD; Dr. Guanakito Reno MD E (more content not included)... Normal [facility] Orthopedic Visit Reporton Orthopedic Visit Report [facility] [address] [place] [address] [address] [place] [address] OFFICE VISIT Date of Service: 03/07/25 MR#: [id number] Acct: [id number] Name: CAL MITCHELL Rep #: [id number] : 1945 Provider: Dr. Josafat murcia MD Age/Sex: 79/M [place] [facility] Status: Signed Intake Vital [...] you fallen in the past year?: Yes [facility] Medical History (Updated 03/07/25 @ [...] by me, Dr. Josafat García MD 03/07/25 0969. Part of today???s visit was documented by [ ], acting as scribe. CAL MITCHELL is a 79 year old M here today for R proximal humerus fracture. Patient fell 2 days ago. He lives at home. He is here today with his son and [id number]-phi. Usually ambulates with a walker or a cane. Had a fall. Was mainly complaining about pain to the upper extremity was seen in a peripheral hospital referred here given a sling they found approximately wrist fracture on the right side. The patient does not speak very much but he converses overall well he is boqrt-widz-pllycgiu fairly stoic. Supplemental Info Proximal humerus fracture [...] a r (more content not included)... Normal [facility] CNOVon 03-06-2025 [facility] Office Visit (FAMPWS ) -------- PAULACAL Chanell ([id number]) 1945 M Date Time Provider Department 03/06/25 3:20 PM [facility] During your visit today, we recorded the following information about you: Pulse Blood pressure 68/minute 124/58 Carolina Landeros APRN.BINGO FLOATER 03/06/2025 4:30 PM Signed This is a [...] and 9-10/10 with movement. - Currently taking [place] for pain management. - Denies pain elsewhere [...] 250.00. Insulin: No Lancets (ONE TOUCH DELICA) [facility] lancets Test blood sugar(s) one time daily. [...] SYSTEMS Mu (more content not included)... Normal [facility] ED NOTEon 03-06-2025 ED NOTE HNO ID: [id number] Author: CHITTENDEN, JACK, RN Service: ? Author Type: Registered Nurse Type: ED Notes Filed: 03/06/2025 00:19 Note Text: Provided meds. Placed in sling. Assisted to bathroom and back Normal [facility] ED PROV NOTEon 03-06-2025 ED PROV NOTE HNO ID: [id number] Author: KEDAR HERNANDEZ MD Service: Emergency Medicine [...] (more content not included)... Normal [facility] CT BRAIN WO IVCONon 03-05-20 CT BRAIN WO IVCON * * *Final Report* * * DATE OF EXAM: Mar 05 2025 11:55PM [facility] 0504 - CT BRAIN WO IVCON / [...] wall calcifications, including in the left-sided carotid. Financial Services Agent (topogram) images: Known (in correlation to earlier [...] vertebrae with counting from the craniocervical junction. Access Database Developer: PSCB Transcribe Date/Time: Mar 06 2025 12:48A Dictated by : CAMELIA GROVES MD This examination was interpreted and the report reviewed and electronically signed by: CAMELIA GROVES MD on Mar 06 2025 1:08AM EST [id number] Normal [facility] CT CERVICAL SPINE WO IVCONon 03-05-2025 CT CERVICAL SPINE WO IVCON * * *Final Report* * * DATE OF EXAM: Mar 05 2025 11:55PM [facility] 0505 - CT CERVICAL SPINE WO IVCON [...] wall calcifications, including in the left-sided carotid. Financial Services Agent (topogram) images: Known (in correlation to earlier [...] vertebrae with counting from the craniocervical junction. Access Database Developer: PSCB Transcribe Date/Time: Mar 06 2025 12:48A Dictated by : CAMELIA GROVES MD This examination was interpreted and the report reviewed and electronically signed by: CAMELIA GROVES MD on Mar 06 2025 1:08AM EST [id number] Normal [facility] ED NOTEon 03-05-2025 ED NOTE HNO ID: [id number] Author: JACK HOLCOMB, RN Service: ? Author Type: Registered Nurse Type: ED Notes Filed: 03/05/2025 23:05 Note Text: Assisted to bathroom and back Normal [facility] ED NOTE HNO ID: [id number] Author: JACK HOLCOMB, BENJIE Service: ? Author Type: Registered Nurse Type: ED Notes Filed: 03/05/2025 22:10 Note Text: Pt c/o fall with right shoulder injury when wheel chair turned over. Denies neck and head injury. [place]ance, warm, dry. No apparent distress. Alert and oriented. Normal [facility] XR HUMERUS 2V AP/LAT RTon XR [...] separation. No dislocation of the glenohumeral joint. Access Database Developer: PSCB Transcribe Date/Time: Mar 06 2025 12:37A Dictated by : LINNEA DIAS MD This examination was interpreted and the report reviewed and electronically signed by: LINNEA DIAS MD on Mar 06 2025 12:40AM EST [id number] Normal [facility] XR SHLDR >/=3V AP/JR AP/OTH R [...] separation. No dislocation of the glenohumeral joint. Access Database Developer: PSCB Transcribe Date/Time: Mar 06 2025 12:37A Dictated by : LINNEA DIAS MD This examination was interpreted and the report reviewed and electronically signed by: LINNEA DIAS MD on Mar 06 2025 12:40AM EST [id number] [facility] 02-20-2025 [facility] Telephone (PHAMTE) -------- CAL MITCHELL ([id number]) 1945 M Date Time Provider Department 02/20/25 JIMMY CARRIZALES During your visit today, we recorded the following information about you: Jimmy Carrizales, [facility] 02/20/2025 9:00 AM Signed [facility] Anticoagulation Episode Summary Anticoagulation Care Providers Provider Role Specialty Phone number Guanakito Reno MD [facility] [phone] Cal Hageroll is a 79 year old [...] ALLERGIES No Known Allergies Indication for Warfarin: terminologist (current) use of anticoagulants Paroxysmal atrial fibrillation [...] doses of warfarin. Jimmy Carrizales [facility] Clinical Pharmacist, Pharmacy Anticoagulation Clinic Pharmacy Anticoagulation Clinic Pager: [phone]. Twin Cole [facility] 03/06/2025 12:38 PM Signed Patient was [...] an injectable anticoagulant - No Twin Cole, [facility] Jimmy Carrizales [facility] 03/13/2025 7:40 AM Signed Cal Lua Paula was sent MyChart message and reminded to test INR today or as soon as possible. Jimmy Carrizales [facility] Alejandro Molina [facility] 03/20/2025 3:45 PM Signed No INR has been received or is in process at this time, will add to discharge list and start the discharge process at this time. Alejandro Molina [facility] Daniel ([employer])Ashley 03/24/2025 10:52 AM Signed No return call from patient. Letter sent. FINAL ATTEMPT letter sent at this time. If no response from patient within 3 weeks of letter being sent, patient will be discharged from PAC at that time. Will also route to referring MD as FYI and to see if office can assist in reaching patient. Ashley Sanchez CPhT ([employer]) Pharmacy Anticoagulation Clinic Guanakito Reno MD 03/24/2025 [...] mg table (more content not included)... Normal [facility] CNPNon 01-31-2025 CNPN Telephone (PHAMTE) -------- CAL MITCHELL ([id number]) 1945 M Date Time Provider Department 01/31/25 KAMRAN AYON During your visit today, we recorded the following information about you: Kamran Ayon bobbi 01/31/2025 12:55 PM Signed [facility] Anticoagulation Episode Summary Anticoagulation Care Providers Provider Role Specialty Phone number Guanakito Reno MD [facility] [phone] Cal Mitchell is a 79 year old [...] ALLERGIES No Known Allergies Indication for Warfarin: terminologist (current) use of anticoagulants Paroxysmal atrial fibrillation [...] Pharmacy Anticoagulation Clinic Pharmacy Anticoagulation Clinic Pager: [phone]. Kamran Ayon RPh 02/14/2025 9:53 AM Signed [...] Cmt: INR Home Test Result Primary Visit Diagnosis:FPC (current) use of anticoagulants [...] (NITROQUICK) 0.4 (more content not included)... Normal [facility] CBC W Auto Differential pane l (Bld)on 01-21-2025 Basophils (Bld) [#/Vol] 0.07 10*3/uL Normal <0.11 [facility] Comment on above: Order Comment: Speci men Type: BLOOD SPECIMENOrdering Facility: [facility] Address: [address] [place] [address] Performed By: #### 5 7021-8 ####[facility] LABCLIA [id number] [address], [facility] [place] Basophils/100 WBC (Bld) 0.9 % Normal [facility] Comment on above: Order Comment: Speci men Type: BLOOD SPECIMENOrdering Facility: [facility] Address: [address] [place] [address] Performed By: #### 5 7021-8 ####[facility] LABCL[facility] [id number] [address], [place] [address] [place] Differential cell count method Nom (Bld) Auto Normal [facility] Comment on above: Order Comment: Speci men Type: BLOOD SPECIMENOrdering Facility: [facility] Address: [address] [place] [address] Performed By: #### 5 7021-8 ####[facility] LABCLIA [id number] [place] [address] [place] Eosinophils (Bld) [#/Vol] 0.25 10*3/uL Normal <0.46 [facility] Comment on above: Order Comment: Speci men Type: BLOOD SPECIMENOrdering Facility: [facility] Address: [address] [place] [address] Performed By: #### 5 7021-8 ####[facility] LABCLIA [id number] [place] [id number] [place] Eosinophils/100 WBC (Bld) 3.3 % Normal [facility] Comment on above: Order Comment: Speci men Type: BLOOD SPECIMENOrdering Facility: [facility] Address: [address] [place] [address] Performed By: #### 5 7021-8 ####[facility] LABCLIA [id number] [place] [address] [place] Erythrocyte distribution width (RBC) [Ratio] 14.8 % Normal 11.5-15.0 [facility] Comment on above: Order Comment: Speci men Type: BLOOD SPECIMENOrdering Facility: [facility] Address: [address] [place] [address] Performed By: #### 5 7021-8 ####[facility] LABCLIA [id number] [address], [place] [address] [place] Hematocrit (Bld) [Volume fraction] 41.2 % Normal 39.0-51.0 [facility] Comment on above: Order Comment: Speci men Type: BLOOD SPECIMENOrdering Facility: [facility] Address: [address] [place] [address] Performed By: #### 5 7021-8 ####[facility] [id number] [place] [address] [place] Hemoglobin (Bld) [Mass/Vol] 12.5 g/dL Low 13.0-17.0 [facility] Comment on above: Order Comment: Speci men Type: BLOOD SPECIMENOrdering Facility: [facility] Address: [address] [place] [address] Performed By: #### 5 7021-8 ####[facility] [id number] [place] [address] [place] Immature granulocytes (Bld) [#/Vol] 10*3/uL Normal <0.10 [facility] Comment on above: Order Comment: Speci men Type: BLOOD SPECIMENOrdering Facility: [facility] Address: [address] [place] [address] Performed By: #### 5 7021-8 ####[facility] LABCL[facility] [id number] [place] [address] [place] Immature granulocytes/100 WBC (Bld) 0.3 % Normal [facility] Comment on above: Order Comment: Speci men Type: BLOOD SPECIMENOrdering Facility: [facility] Address: [address] [place] [address] Performed By: #### 5 7021-8 ####[facility]CL[facility] [id number] [place] [address] [place] Lymphocytes (Bld) [#/Vol] 1.28 10*3/uL Normal 1.00-4.00 [facility] Comment on above: Order Comment: Speci men Type: BLOOD SPECIMENOrdering Facility: [facility] Address: [address] [place] [address] Performed By: #### 5 7021-8 ####[facility]CL[facility] [id number] [place] [address] [place] Lymphocytes/100 WBC (Bld) 17.1 % Normal [facility] Comment on above: Order Comment: Speci men Type: BLOOD SPECIMENOrdering Facility: [facility] Address: [address] [place] [address] Performed By: #### 5 7021-8 ####[facility]CL[facility] [id number] [place] [address] [place] MCH (RBC) [Entitic mass] 29.3 pg Normal 26.0-34.0 [facility] Comment on above: Order Comment: Speci men Type: BLOOD SPECIMENOrdering Facility: [facility] Address: [address] [place] [address] Performed By: #### 5 7021-8 ####[facility]CL[facility] [id number] [place] [address] [place] MCHC (RBC) [Mass/Vol] 30.3 g/dL Low 30.5-36.0 [facility] Comment on above: Order Comment: Speci men Type: BLOOD SPECIMENOrdering Facility: [facility] Address: [address] [place] [address] Performed By: #### 5 7021-8 ####[facility] [id number] [place] [address] [place] MCV (RBC) [Entitic vol] 96.7 fL Normal 80.0-100.0 [facility] Comment on above: Order Comment: Speci men Type: BLOOD SPECIMENOrdering Facility: [facility] Address: [address] [place] [address] Performed By: #### 5 7021-8 ####[facility] [id number] [place] [address] [place] Monocytes (Bld) [#/Vol] 0.61 10*3/uL Normal <0.87 [facility] Comment on above: Order Comment: Speci men Type: BLOOD SPECIMENOrdering Facility: [facility] Address: [address] [place] [address] Performed By: #### 5 7021-8 ####[facility] [id number] [place] [address] [place] Monocytes/100 WBC (Bld) 8.2 % Normal [facility] Comment on above: Order Comment: Speci men Type: BLOOD SPECIMENOrdering Facility: [facility] Address: [address] [place] [address] Performed By: #### 5 7021-8 ####[facility] [id number] [place] [address] [place] Neutrophils (Bld) [#/Vol] 5.25 10*3/uL Normal 1.45-7.50 [facility] Comment on above: Order Comment: Speci men Type: BLOOD SPECIMENOrdering Facility: [facility] Address: [address] [place] [address] Performed By: #### 5 7021-8 ####[facility] [id number] [place] [address] [place] Neutrophils/100 WBC (Bld) 70.2 % Normal [facility] Comment on above: Order Comment: Speci men Type: BLOOD SPECIMENOrdering Facility: [facility] Address: [address] [place] [address] Performed By: #### 5 7021-8 ####[facility] [id number] [facility] [address] [place] [address] [place] Nucleated RBC (Bld) [#/Vol] 10*3/uL Normal <0.01 [facility] Comment on above: Order Comment: Speci men Type: BLOOD SPECIMENOrdering Facility: [facility] Address: [address] [place] [address] Performed By: #### 5 7021-8 ####[facility]CL[facility] [id number] [facility] [address] [place] [address] [place] Nucleated RBC/100 WBC (Bld) [Ratio] 0.0 /100 WBC Normal [facility] Comment on above: Order Comment: Speci men Type: BLOOD SPECIMENOrdering Facility: [facility] Address: [address] [place] [address] Performed By: #### 5 7021-8 ####[facility] [id number] [address] [place] [address] [place] Platelet mean volume (Bld) [Entitic vol] 10.3 fL Normal 9.0-12.7 [facility] Comment on above: Order Comment: Speci men Type: BLOOD SPECIMENOrdering Facility: [facility] Address: [address] [place] [address] Performed By: #### 5 7021-8 ####[facility] [id number] [address] [place] [address] [place] Platelets (Bld) [#/Vol] 198 10*3/uL Normal 150-400 [facility] Comment on above: Order Comment: Speci men Type: BLOOD SPECIMENOrdering Facility: [facility] Address: [address] [place] [address] Performed By: #### 5 7021-8 ####[facility] [id number] [place] [id number] [place] RBC (Bld) [#/Vol] 4.26 10*6/uL Normal 4.20-6.00 [facility] Comment on above: Order Comment: Speci men Type: BLOOD SPECIMENOrdering Facility: [facility] Address: [address] [place] [address] Performed By: #### 5 7021-8 ####[facility] [id number] [place] [address] [place] WBC (Bld) [#/Vol] 7.48 10*3/uL Normal 3.70-11.00 [facility] Comment on above: Order Comment: Speci men Type: BLOOD SPECIMENOrdering Facility: [facility] Address: [address] [place] [address] Performed By: #### 5 7021-8 ####[facility] [id number] [address] OF [facility] CNOVon 01-21-2025 CNOV Office Visit (FAMPWS ) -------- CAL MITCHELL ([id number]) 1945 M Date Time Provider Department 01/21/25 3:40 PM CAROLINA LANDEROS FAMPWS During your visit today, we recorded the following information about you: Temperature Pulse Blood pressure Weight 97.6 degrees 59/minute 122/60 117 kg Carolina Landeros, LEDGER CLERK.BINGO FLOATER 01/21/2025 4:11 PM Signed This is a [...] taking lisinopril Monitors bp at home: Yes. [place] checks it, ok there Denies side effects: [...] pain,every 5 min x3 blood sugar diagnostic (EverwiseTOUCH ULTRA TEST) test strip Test blood sugar(s) [...] (20.0 ttl (more content not included)... Normal [facility] metabolic 2000 panelon 01-21-2025 Albumin [Mass/Vol] 4.1 g/dL Normal 3.9-4.9 [facility] Comment on above: Order Comment: Speci men Type: BLOOD SPECIMENOrdering Facility: [facility] Address: [address] [place] [address] Performed By: #### 2 132-9, 13595-3, 19841-9, LIPNF ####[facility]CL[facility] [id number] [place] [address] [place] ALP [Catalytic activity/Vol] 153 U/L High 38-113 [facility] Comment on above: Order Comment: Speci men Type: BLOOD SPECIMENOrdering Facility: [facility] Address: [address] [place] [address] Performed By: #### 2 132-9, 59313-5, 05619-0, LIPNF ####[facility]CL[facility] [id number] [place] [address] [place] ALT [Catalytic activity/Vol] 19 U/L Normal 10-54 [facility] Comment on above: Order Comment: Speci men Type: BLOOD SPECIMENOrdering Facility: [facility] Address: [address] [place] [address] Performed By: #### 2 132-9, 25501-2, 41795-8, LIPNF ####[facility]CL[facility] [id number] [place] [address] [place] Anion gap [Moles/Vol] 15 mmol/L Normal 8-15 [facility] Comment on above: Order Comment: Speci men Type: BLOOD SPECIMENOrdering Facility: [facility] Address: [address] [place] [address] Performed By: #### 2 132-9, 47711-1, 23550-1, LIPNF ####[facility]CL[facility] [id number] [place] [id number] [place] AST [Catalytic activity/Vol] 23 U/L Normal 14-40 [facility] Comment on above: Order Comment: Speci men Type: BLOOD SPECIMENOrdering Facility: [facility] Address: [address] [place] [address] Performed By: #### 2 132-9, 48802-2, 12895-5, LIPNF ####[facility]CL[facility] [id number] [place] [address] [place] Bilirubin [Mass/Vol] 0.6 mg/dL Normal 0.2-1.3 [facility] Comment on above: Order Comment: Speci men Type: BLOOD SPECIMENOrdering Facility: [facility] Address: [address] [place] [address] Performed By: #### 2 132-9, 05674-3, , LIPNF ####[facility] [id number] [place] [address] [place] Calcium [Mass/Vol] 8.8 mg/dL Normal 8.5-10.2 [facility] Comment on above: Order Comment: Speci men Type: BLOOD SPECIMENOrdering Facility: [facility] Address: [address] [place] [address] Performed By: #### 2 132-9, 10773-7, 02512-7, LIPNF ####[facility]CL[facility] [id number] [place] [address] [place] Chloride [Moles/Vol] 106 mmol/L Normal 98-107 [facility] Comment on above: Order Comment: Speci men Type: BLOOD SPECIMENOrdering Facility: [facility] Address: [address] [place] [address] Performed By: #### 2 132-9, 28463-9, 92196-4, LIPNF ####[facility]CL[facility] [id number] [place] [id number] [place] CO2 [Moles/Vol] 21 mmol/L Low 22-30 [facility] Comment on above: Order Comment: Speci men Type: BLOOD SPECIMENOrdering Facility: [facility] Address: [address] [place] [address] Performed By: #### 2 132-9, 71736-9, 78650-3, LIPNF ####[facility]CL[facility] [id number] [place] [address] [place] Creatinine [Mass/Vol] 2.34 mg/dL High 0.73-1.22 [facility] Comment on above: Order Comment: Speci men Type: BLOOD SPECIMENOrdering Facility: [facility] Address: [address] [place] [address] Performed By: #### 2 132-9, 15114-5, , LIPNF ####[facility] [id number] [place] [address] [place] Creatinine and Glomerular filtration rate.predicted panel (S/P/Bld) 27 mL/min/1.73m??? Low >=60 [facility] Comment on above: Order Comment: Jocelini men Type: BLOOD SPECIMENOrdering Facility: [facility] Address: [address] [place] [address] Result Comment: Lina mated Glomerular Filtration Rate [...] actual GFR. Performed By: #### 2 132-9, 62699-8, 58576-4, LIPNF ####[facility] [id number] [place] [id number] [place] Glucose [Mass/Vol] 122 mg/dL High 74-99 [facility] Comment on above: Order Comment: Speci men Type: BLOOD SPECIMENOrdering Facility: [facility] Address: [address] [place] [address] Result Comment: The [place] Diabetes Association (ADA) provides guidance for cutoff [...] Standards of Medical Care in Diabetes 2016, [place] [employer]. Diabetes Care. 2016.39(Suppl 1). Performed By: #### 2 132-9, 87214-1, , LIPNF ####[facility]CL[facility] [id number] [place] [address] [place] Potassium [Moles/Vol] 4.3 mmol/L Normal 3.7-5.1 [facility] Comment on above: Order Comment: Speci men Type: BLOOD SPECIMENOrdering Facility: [facility] Address: [address] [place] [address] Performed By: #### 2 132-9, , , LIPNF ####[facility] [id number] [place] [address] [place] Protein [Mass/Vol] 7.2 g/dL Normal 6.3-8.0 [facility] Comment on above: Order Comment: Speci men Type: BLOOD SPECIMENOrdering Facility: [facility] Address: [address] [place] [id number] Performed By: #### 2 132-9, , , LIPNF ####[facility] [id number] [address] [address] [place] Sodium [Moles/Vol] 142 mmol/L Normal 136-144 [facility] Comment on above: Order Comment: Marcelle men Type: BLOOD SPECIMENOrdering Facility: [facility] Address: [address] [place] [address] Performed By: #### 2 132-9, 10506-5, , LIPNF ####[facility] [id number] [address] [address] [place] Urea nitrogen [Mass/Vol] 29 mg/dL High 9-24 [facility] Comment on above: Order Comment: Marcelle men Type: BLOOD SPECIMENOrdering Facility: [facility] Address: [address] [place] [address] Performed By: #### 2 132-9, 51805-9, , LIPNF ####[facility] [id number] [address] [address] [place] HbA1c (Bld)on 01-21-2025 Average glucose Estimated from glycated hemoglobin (Bld) [Mass/Vol] 146 mg/dL Normal [facility] Comment on above: Order Comment: Marcelle [facility] Type: BLOOD SPECIMENOrdering Facility: [facility] Address: [address] [place] [address] Result Comment: eAG: (Estimated average glucose) is a calculated value from HgbA1c and is inventory representative of the average blood glucose level in the last 2-3 month period. Performed By: #### 5 5454-3 ####[facility] [id number] [place] [address] [place] HbA1c (Bld) [Mass fraction] 6.7 % High 4.3-5.6 [facility] Comment on above: Order Comment: Jocelinnick [facility] Type: BLOOD SPECIMENOrdering Facility: [facility] Address: [address] [place] [address] Result Comment: [place] Diabetes Association guidelines indicate that patients with HgbA1c in the range 5.7-6.4% are at increased risk for development of diabetes, and intervention by lifestyle modification may be beneficial. HgbA1c greater or equal to 6.5% is considered diagnostic of diabetes. Performed By: #### 5 5454-3 ####[facility] [id number] [place] [address] [place] LIPID PANEL, NONFASTINGon Cholesterol [Mass/Vol] 164 mg/dL Normal <200 [facility] Comment on above: Order Comment: Speci men Type: BLOOD SPECIMENOrdering Facility: [facility] Address: [address] [place] [address] Result Comment: <200 mg/dL, Desirable 200-239 mg/dL, Borderline high >239 mg/dL, High Performed By: #### 2 132-9, 01511-4, , LIPNF ####[facility] [id number] [address] STATES OF [facility] HDL CHOLESTEROL, NF 42 mg/dL Normal >39 [facility] Comment on above: Order Comment: Speci men Type: BLOOD SPECIMENOrdering Facility: [facility] Address: [address] [place] [address] Result Comment: 40-5 9 mg/dL, Acceptable >59 mg/dL, High: Negative risk factor for coronary heart disease <40 mg/dL, Low: Positive risk factor for coronary heart disease Performed By: #### 2 132-9, 65906-7, , LIPNF ####[facility] [id number] [address] [place] LDL CHOLESTEROL, NF 96 mg/dL Normal <100 [facility] Comment on above: Order Comment: Speci [facility] Type: BLOOD SPECIMENOrdering Facility: [facility] Address: [address] [place] [address] Result Comment: <100 mg/dL, Optimal 100-129 mg/dL, Near optimal/above optimal 130-159 mg/dL, Borderline high 160-189 mg/dL, High >189 mg/dL, Very high Secondary prevention optimal LDL Cholesterol levels are recommended to be < 70 mg/dL Performed By: #### 2 132-9, 33657-6, 10712-4, LIPNF ####[facility] [id number] [place] [id number] [facility] LDL/HDL RATIO, NF 2.29 mg/dL Normal <2.[address] [facility] Comment on above: Order Comment: Speci men Type: BLOOD SPECIMENOrdering Facility: [facility] Address: [address] [place] [address] Result Comment: Refe rence: 1. National Cholesterol Education Program ATP III Guideline At-A-Glance Quick Desk Reference: National Heart, Lung, and Blood [place]. National Institutes of Health. 2001: NIH Publication No. 01-3305. 2. An International Atherosclerosis Society position paper: global recommendations for the management of dyslipidemia: executive summary, Atherosclerosis. 2014: 232(2):410-413. Performed By: #### 2 132-9, 32154-4, 87417-4, LIPNF ####[facility] [id number] [address] [place] NON HDL CHOL, NF 122 mg/dL Normal <130 [facility] Comment on above: Order Comment: Speci men Type: BLOOD SPECIMENOrdering Facility: [facility] Address: [address] [place] [address] Result Comment: <130 mg/dL, Optimal 130-159 mg/dL, Near optimal/above optimal 160-189 mg/dL, Borderline high 190-219 mg/dL, High >219 mg/dL, Very high Secondary prevention optimal non HDL Cholesterol levels are recommended to be <100 mg/dL Performed By: #### 2 132-9, 97177-5, 06568-9, LIPNF ####[facility] [id number] [address] STATES OF [facility] T CHOL/HDL RATIO NF 3.90 mg/dL Normal <5.10 [facility] Comment on above: Order Comment: Speci men Type: BLOOD SPECIMENOrdering Facility: [facility] Address: [address] [place] [address] Performed By: #### 2 132-9, 27285-7, 72579-8, LIPNF ####[facility] [id number] [address] [address] [place] TRIGLYCERIDES, NF 129 mg/dL Normal <[address] [facility] Comment on above: Order Comment: Speci men Type: BLOOD SPECIMENOrdering Facility: [facility] Address: [address] [place] [address] Result Comment: <150 mg/dL, Normal 150-199 mg/dL, Borderline high 200-499 mg/dL, High >499 mg/dL, Very high Performed By: #### 2 132-9, 49894-1, , LIPNF ####[facility] [id number] [place] [address] [place] VLDL CHOLESTEROL, NF 26 mg/dL Normal <30 [facility] Comment on above: Order Comment: Speci men Type: BLOOD SPECIMENOrdering Facility: [facility] Address: [address] [place] [address] Performed By: #### 2 132-9, 20242-4, , LIPNF ####[facility] [id number] [place] [id number] [place] Magnesium SerPl-mCncon 01-21 Magnesium [Mass/Vol] 2.3 mg/dL Normal 1.7-2.3 [facility] Comment on above: Order Comment: Speci men Type: BLOOD SPECIMENOrdering Facility: [facility] Address: [address] [place], [place] [address] Performed By: #### 2 132-9, 03057-9, , LIPNF ####[facility] [id number] [place] [id number] [place] Vit B12 SerPl-mCncon 025 Cobalamin (Vitamin B12) [Mass/Vol] 385 pg/mL Normal 232-1245 [facility] Comment on above: Order Comment: Speci men Type: BLOOD SPECIMENOrdering Facility: [facility] Address: [address] [place] [address] Performed By: #### 2 132-9, 02599-2, 56049-8, LIPNF ####[facility] [id number] [place] [address] OF [facility] CNPNon 01-08-2025 CNPN Telephone (PHAMTE) -------- CAL MITCHELL ([id number]) 1945 M Date Time Provider Department 01/08/25 RUTHIE CUEVAS During your visit today, we recorded the following information about you: Ruthie Cuevas bobbi 01/08/2025 9:14 AM Signed [facility] Anticoagulation Episode Summary Anticoagulation Care Providers Provider Role Specialty Phone number Guanakito Reno MD [facility] [phone] Cal Hageroll is a 79 year old [...] Pharmacy Anticoagulation Clinic Pharmacy Antico[facility] Clinic Pager: [phone]. Ruthie Cuevas RPh 01/29/2025 11:08 AM Addendum Cal Mitchell was called and reminded to test INR today or as soon as possible. LVMX for January. 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 Dx: 250.00. Insulin: No Problem List As Of Date 01/08/2025 (more content not included)... Normal [facility] Molly 12-30-2024 [facility] Tele[facility] (PHAPAE) -------- CAL MITCHELL ([id number]) 1945 M Date Time Provider Department 12/30/24 TWIN COLE During your visit today, we recorded the following information about you: Twin Cole [facility] 12/30/2024 9:14 AM Signed [facility] Anticoagulation Episode Summary Anticoagulation Care Providers Provider Role Specialty Phone number Guanakito Reno MD [facility] Medicine [phone] Cal Mitchell is a 79 year old [...] doses of warfarin. Twin Cole [facility] Clinical Pharmacist, Pharmacy Anticoagulation Clinic Pharmacy Anticoagulation Clinic Pager: [phone]. Octavio (Garden Implement Mechanic)Ruben 12/30/2024 9:15 AM Signed De called regarding INR result for patient. Result has been addressed below, no further action needed. Ruben Cunningham, Broomcorn Grader (v belt builder) Pharmacy Anticoagulation Clinic Jimmy Carrizales [facility] 01/07/2025 12:02 PM Signed Cal Mitchell was called, lvmx and reminded to test INR today or as soon as possible given that we left a VM last week also. [facility] As of Date: 12/30/2024 (No Known [...] Insulin: No - Lancets (ONE TOUCH DELICA) [facility] lancets Test blood sugar(s (more content not included)... Normal [facility] 12-11-2024 [facility] Telephone (SANJAYE) -------- CAL MITCHELL ([id number]) 1945 M Date Time Provider Department 12/11/24 JIMMY CARRIZALES During your visit today, we recorded the following information about you: [facility] 12/11/2024 9:51 AM Signed [facility] Anticoagulation Episode Summary Anticoagulation Care Providers Provider Role Specialty Phone number Guanakito Reno MD [facility] Medicine [phone] Cal Mitchell is a 79 year old [...] doses of warfarin. Jimmy Carrizales [facility] Clinical Pharmacist, Pharmacy Anticoagulation Clinic Pharmacy Anticoagulation Clinic Pager: [phone]. Ruthie Cuevas RPh 12/25/2024 11:14 AM Signed [...] sugar grey (more content not included)... Normal [facility] CNPNon 11-26-2024 CNPN Telephone (SANJAYE) -------- CAL MITCHELL ([id number]) 1945 M Date Time Provider Department 11/26/24 TWIN COLE During your visit today, we recorded the following information about you: Twin Cole bobbi 11/26/2024 5:29 PM Signed [facility] Anticoagulation Episode Summary Anticoagulation Care Providers Provider Role Specialty Phone number Guanakito Reno MD [facility] Medicine [phone] Cal Mitchell is a 79 year old [...] doses of warfarin. Twin Cole [facility] Clinical Pharmacist, Pharmacy Anticoagulation Clinic Pharmacy Anticoagulation Clinic Pager: [phone]. Yamilka Heath RN 11/27/2024 8:43 AM Signed Chris Ruggiero left a VM regarding the patient's INR result on 11/26/2024. Noted result has been addressed below. BENJIE Cardenas Kim [facility] 12/10/2024 10:31 AM Signed Cal Mitchell was called and reminded to test INR today or as soon as possible. Left VM on January's number. Twin Cole [facility] Allergies As of Date: 11/26/2024 (No Known [...] Insulin: No - Lancets (ONE TOUCH DELICA) [facility] lancets Test blood sugar(s) one time daily. Dx: 250.00. Insulin: No Problem Lis (more content not included)... Normal [facility] [facility] CNPNon 10-28-[facility]24 CNPN Telephone (PHAMTE) -------- CAL MITCHELL ([id number]) 1945 M Date Time Provider Department 10/28/24 ALEJANDRO MOLINA During your visit today, we recorded the following information about you: Alejandro Molina RPh 10/28/2024 5:07 PM Signed [facility] Anticoagulation Episode Summary Anticoagulation Care Providers Provider Role Specialty Phone number Guanakito Reno MD [facility] Family [facility] [phone] Cal Mitchell is a 79 year old [...] instructed to call [facility] at [phone] with any questions or concerns. Alejandro Molina [facility] Clinical Pharmacist, Pharmacy Anticoagulation Clinic Pharmacy Anticoagulation Clinic Pager: [phone] Alejandro Molina [facility] 11/11/2024 4:42 PM Signed Patient was due to test INR today. Will continue to monitor for results. Will follow up in one week if no results received. Alejandro Molina [facility] 11/18/2024 4:27 PM Signed Cal Mitchell was called and reminded to test INR today or as soon as possible. Alejandro Molina [facility] [place] [facility] 11/25/2024 2:53 PM Signed Added to discharge list Daniel (Garden Implement Mechanic)Ashley 11/26/2024 2:43 PM Signed DISCHARGE No return call from patient. Letter sent. FINAL ATTEMPT letter sent at this time. If no response from patient within 4 weeks, patient will be discharged from PAC at that time. Will also route to referring MD as FYI and to see if office can assist in reaching patient. Ashley Sanchez CPhT (Broomcorn Grader) Pharmacy Anticoagulation Clinic Guanakito Reno MD 11/26/2024 [...] spoke to Ashlyn. Gave them the pharmacy [facility] phone number and they are going to [...] things anymore. 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 CHANCE Ramirez (Garden Implement Mechanic)Ashley 11/26/2024 5:07 PM Signed PATIENT CALL Patient [...] received. PAC will await results. Ashley Sanchez ([facility] (more content not included)... Normal [facility] Molly [facility]-20[facility] CAL MITCHELL ([id number]) 1945 M Date Time Provider Department 10/21/24 [...] Insulin: No - Lancets (ONE TOUCH DELICA) [facility] lancets Test blood sugar(s) one time daily. [...] stenosis of unspecified carotid a*10/25/2013 03/26/2024 Frequency [[id number]] 02/11/2016 03/26/2024 BPH (benign prostatic hypertrophy) with urinary*02/11/2016 Adhesive capsulitis of right shoulder [M75.01] 05/15/2018 Aortic stenosis [I35.0] 05/24/2018 CKD (chronic kidney disease) stage 3, GFR 30-59*05/24/2018 03/26/2024 Lung (more content not included)... [facility] (PHAMTE) -------- CAL MITCHELL ([id number]) 1945 M Date Time Provider Department 10/01/24 [place] During your visit today, we recorded the following information about you: Twin Cole [facility] 10/01/2024 9:42 AM Signed [facility] Anticoagulation Episode Summary Anticoagulation Care Providers Provider Role Specialty Phone number Guanakito Reno MD [facility] [phone] Cal Mitchell is a 79 year old [...] Pharmacy Anticoagulation Clinic Pharmacy Anticoagulation Clinic Pager: [phone]. Twin Cole RPh 10/15/2024 12:10 PM Signed [...] tablet Dissolve (more content not included)... Normal [facility] 08-26-2024 CNPN Telephone (PHAMTE) -------- CAL MITCHELL ([id number]) 1945 M Date Time Provider Department 08/26/24 ALEJANDRO MOLINA During your visit today, we recorded the following information about you: Alejandro Molina RPh 08/26/2024 6:35 AM Signed [facility] Anticoagulation Episode Summary Anticoagulation Care Providers Provider Role Specialty Phone number Guanakito Reno MD [facility] Family Medicine [phone] Cal Hageroll is a 79 year old [...] warfarin instructions: 5 mg every day Sent KFx Medical message Advised patient to continue current weekly dose as noted above Next INR check due on 09/09/2024 Alejandro Molina [facility] Clinical Pharmacist, Pharmacy Anticoagulation Clinic Pharmacy Anticoagulation Clinic Pager: [phone]. Alejandro Molina RPh 09/09/2024 4:38 PM Signed [...] Insulin: No - Lancets (ONE TOUCH DELICA) [facility] lancets Test blood sugar(s) one time daily. Dx: 250.00. Insulin: No Problem List As Of Date 08/26/2024 Noted Resolved Hyperlipidemia, mixed [E78.2] Essential hypertension [I10] Peripheral arterial disease (HCC) [I73.9] Other symptoms involving cardiovascular system * 07/20/2016 ACTINIC KERATOSIS [L57.0] 10/12/2005 IMPACTED CERUMEN [H61.20] (more content not included)... Normal [facility] Molly 08-16-2024 LUCIO Telephone (AGSP) -------- CAL MITCHELL ([id number]) 1945 M Date Time Provider Department 08/16/24 JIMMY STANLEY [facility] During your visit today, we recorded [...] Insulin: No - Lancets (ONE TOUCH DELICA) [facility] lancets Test blood sugar(s) one time daily. [...] stenosis of unspecified carotid a*10/25/2013 03/26/2024 Frequency [[id number]] 02/11/2016 03/26/2024 BPH (benign prostatic hypertrophy) with [...] (more content not included)... Normal [facility] ECG B/O W INTERP (MED OFFICE )on 07-10-2024 Sinus rhythm with fi rst degree heart block [facility] US Kidney - bilateral and Ur inary bladderon 05-02-2024 IMPRESSION: No hydronephrosis. Cholelithiasis. Access Database Developer: PSCB Transcribe Date/Time: May 02 2024 7:17P Dictated by : TIN COTTER DO This examination was interpreted and the report reviewed and electronically signed by: TIN COTTER DO on May 02 2024 7:19PM [facility] DIVISION OF RADIOLOGY * * *Final Report* [...] Incidentally noted cholelithiasis. DIVISION OF RADIOLOGY Provider, [facility] g [place] - 05/02/2024 * * *Final Report* * [...] noted cholelithiasis. IMPRESSION IMPRESSION: No hydronephrosis. Cholelithiasis. Access Database Developer: MAC Transcribe Date/Time: May 02 2024 7:17P Dictated by : TIN COTTER DO This examination was interpreted and the report reviewed and electronically signed by: TIN COTTER DO on May 02 2024 7:19PM [facility] Radiology Study observation (narrative) [facility] US Kidney - bilateral and Ur inary bladderOrdered By: Ccf Provider on 05-02-2024 [facility] NT PRO BNPon 03-26-2024 Natriuretic peptide.B prohormone N-Terminal [Mass/Vol] 501 pg/mL High NINF - 450 pg/mL [facility] Natriuretic peptide.B prohor jodie N-Terminal [Mass/Vol]on 03-26-2024 Interpretation and review of laboratory results Abnormal [facility] THYROID STIMULATING HORMONEo n 03-26-2024 TSH Qn 2.950 m[IU]/L [facility] TSH Qnon 03-26-2024 Interpretation and review of laboratory results Normal [facility] CBC panel Auto (Bld)on 03-25 Erythrocyte distribution width (RBC) [Ratio] 14.9 % 11.5 - 15.0 % [facility] Hematocrit (Bld) [Volume fraction] 31.8 % Low 39.0 - 51.0 % [facility] Hemoglobin (Bld) [Mass/Vol] 9.6 g/dL Low 13.0 - 17.0 g/dL [facility] Interpretation and review of laboratory results Abnormal [facility] MCH (RBC) [Entitic mass] 30.9 pg 26.0 - 34.0 pg [facility] MCHC (RBC) [Mass/Vol] 30.2 g/dL Low 30.5 - 36.0 g/dL [facility] MCV (RBC) [Entitic vol] 102.3 fL High 80.0 - 100.0 fL [facility] Nucleated RBC (Bld) [#/Vol] NINF [facility] Platelet mean volume (Bld) [Entitic vol] 9.8 fL 9.0 - 12.7 fL [facility] Platelets (Bld) [#/Vol] 158 10*3/uL [facility] RBC (Bld) [#/Vol] 3.11 10*6/uL Low 4.20 - 6.0 0 m/uL [facility] WBC (Bld) [#/Vol] 4.72 10*3/uL [facility] Comprehensive metabolic 2000 panelOrdered By: Haley Marie on 03-25-2024 Albumin [Mass/Vol] 3.7 g/dL Low 3.9 - 4.9 g/dL [facility] ALP [Catalytic activity/Vol] 109 U/L 38 - 113 U/L [facility] ALT [Catalytic activity/Vol] 15 U/L 10 - 54 U/L [facility] Anion gap [Moles/Vol] 12 mmol/L 8 - 15 mmol/L [facility] AST [Catalytic activity/Vol] 19 U/L 14 - 40 U/L [facility] Bilirubin [Mass/Vol] 0.3 mg/dL 0.2 - 1 .3 mg/dL [facility] Calcium [Mass/Vol] 8.6 mg/dL 8.5 - 10. 2 mg/dL [facility] Chloride [Moles/Vol] 113 mmol/L High 98 - 10 7 mmol/L [facility] CO2 [Moles/Vol] 16 mmol/L Low 22 - 30 mmol/L [facility] Creatinine [Mass/Vol] 2.48 mg/dL High 0.73 - 1.22 mg/dL [facility] GFR/1.73 sq M.predicted among non-blacks MDRD (S/P/Bld) [Vol rate/Area] 26 mL/min/{1.73_m2} Low - PINF [facility] Comment on above: Estimated Glomerular Filtration Rate [...] [Mass/Vol] 99 mg/dL 74 - 99 mg/dL [facility] Comment on above: The [place] [employer] (ADA) provides guidance for [...] Standards of Medical Care in Diabetes 2016, [place] [employer]. Diabetes Care. 2016.39(Suppl 1). Interpretation and review of laboratory results Abnormal [facility] Potassium [Moles/Vol] 4.4 mmol/L 3.7 - 5.1 mmol/L [facility] Protein [Mass/Vol] 6.4 g/dL 6.3 - 8.0 g/dL [facility] Sodium [Moles/Vol] 141 mmol/L 136 - 144 mmol/L [facility] Urea nitrogen [Mass/Vol] 49 mg/dL High 9 - 24 mg/dL [facility] ALBUMIN/CREAT RATIO RND URon 08-14-2023 Albumin DL <= 20 mg/L (U) [Mass/Vol] 26.7 mg/L [facility] Albumin/Creatinine (U) [Mass ratio] 27 mg/g <30 mg/g [facility] Creatinine (U) [Mass/Vol] 98.9 mg/dL 20.0 - 300.0 mg/dL [facility] CBC W Auto Differential pane l (Bld)on 08-14-2023 Basophils (Bld) [#/Vol] 0.05 10*3/uL <0.11 k/uL [facility] Basophils/100 WBC (Bld) 0.9 % [facility] Differential cell count method Nom (Bld) Auto [facility] Eosinophils (Bld) [#/Vol] 0.44 10*3/uL <0.46 k/uL [facility] Eosinophils/100 WBC (Bld) 8.3 % [facility] Erythrocyte distribution width (RBC) [Ratio] 14.5 % 11.5 - 15.0 % [facility] Hematocrit (Bld) [Volume fraction] 38.6 % Low 39.0 - 51.0 % [facility] Hemoglobin (Bld) [Mass/Vol] 11.7 g/dL Low 13.0 - 17.0 g/dL [facility] Immature granulocytes (Bld) [#/Vol] <0.10 k/uL [facility] Immature granulocytes/100 WBC (Bld) 0.4 % [facility] Lymphocytes (Bld) [#/Vol] 1.18 10*3/uL 1.00 - 4.00 k/uL [facility] Lymphocytes/100 WBC (Bld) 22.1 % [facility] MCH (RBC) [Entitic mass] 31.3 pg 26.0 - 34.0 pg [facility] MCHC (RBC) [Mass/Vol] 30.3 g/dL Low 30.5 - 36.0 g/dL [facility] MCV (RBC) [Entitic vol] 103.2 fL High 80.0 - 100.0 fL [facility] Monocytes (Bld) [#/Vol] 0.42 10*3/uL <0.87 k/uL [facility] Monocytes/100 WBC (Bld) 7.9 % [facility] Neutrophils (Bld) [#/Vol] 3.22 10*3/uL 1.45 - 7.50 k/uL [facility] Neutrophils/100 WBC (Bld) 60.4 % [facility] Nucleated RBC (Bld) [#/Vol] <0.01 k/uL [facility] Nucleated RBC/100 WBC (Bld) [Ratio] 0.0 /100 WBC [facility] Platelet mean volume (Bld) [Entitic vol] 10.5 fL 9.0 - 12.7 fL [facility] Platelets (Bld) [#/Vol] 144 10*3/uL Low 150 - 400 k/uL [facility] RBC (Bld) [#/Vol] 3.74 10*6/uL Low 4.20 - 6.0 0 m/uL [facility] WBC (Bld) [#/Vol] 5.33 10*3/uL 3.70 - 11.00 k/uL [facility] Comprehensive metabolic 2000 panelon 08-14-2023 Albumin [Mass/Vol] 4.1 g/dL 3.9 - 4.9 g/dL [facility] ALP [Catalytic activity/Vol] 111 U/L 38 - 113 U/L [facility] ALT [Catalytic activity/Vol] 21 U/L 10 - 54 U/L [facility] Anion gap [Moles/Vol] 11 mmol/L 9 - 18 mmol/L [facility] AST [Catalytic activity/Vol] 26 U/L 14 - 40 U/L [facility] Bilirubin [Mass/Vol] 0.5 mg/dL 0.2 - 1 .3 mg/dL [facility] Calcium [Mass/Vol] 8.8 mg/dL 8.5 - 10. 2 mg/dL [facility] Chloride [Moles/Vol] 106 mmol/L High 97 - 10 5 mmol/L [facility] CO2 [Moles/Vol] 24 mmol/L 22 - 30 mmol/L [facility] Creatinine [Mass/Vol] 2.30 mg/dL High 0.73 - 1.22 mg/dL [facility] Estimated Glomerular Filtration Rate 28 mL/min/1.73m Low >=60 mL/min/1.73 m [facility] Glucose [Mass/Vol] 113 mg/dL High 74 - 99 mg/dL [facility] Potassium [Moles/Vol] 4.6 mmol/L 3.7 - 5.1 mmol/L [facility] Protein [Mass/Vol] 7.0 g/dL 6.3 - 8.0 g/dL [facility] Sodium [Moles/Vol] 141 mmol/L 136 - 144 mmol/L [facility] Urea nitrogen [Mass/Vol] 28 mg/dL High 9 - 24 mg/dL [facility] HbA1c (Bld)on 08-14-2023 Average glucose Estimated from glycated hemoglobin (Bld) [Mass/Vol] 108 mg/dL [facility] HbA1c (Bld) [Mass fraction] 5.4 % 4.3 - 5.6 % [facility] Lipid 1996 panelon Cholesterol [Mass/Vol] 165 mg/dL <200 mg/dL [facility] Cholesterol in HDL [Mass/Vol] 44 mg/dL >39 mg/dL [facility] Cholesterol in LDL [Mass/Vol] 100 mg/dL High <100 mg/dL [facility] Cholesterol in LDL/Cholesterol in HDL [Mass ratio] 2.27 {ratio} <2.54 [facility] Cholesterol in VLDL [Mass/Vol] 21 mg/dL <30 mg/dL [facility] Cholesterol non HDL [Mass/Vol] 121 mg/dL <130 mg/dL [facility] Cholesterol.total/Julia sterol in HDL [Mass ratio] 3.75 {ratio} <5.10 [facility] Fasting Time 14 hrs [facility] Triglyceride [Mass/Vol] 106 mg/dL <150 mg/dL [facility] INR FINGERSTICK B/Oon 2021 INR Coag (Bld) [Relative time] 1.9 (self reporting) [facility] INR FINGERSTICK B/Oon 2021 INR Coag (Bld) [Relative time] 2.1 biotel [facility] Quality Check No [facility] Vital Signs Date Time Vital Sign Value Performing Clinician Facility 03-07-2025 12:57-0400 Body height 177.[address] Guanakito Reno MD Work Phone: [facility] 03-07-2025 12:57-0400 Body mass index (BMI) [Ratio] 35.9 kg/m2 Dr. Guanakito Reno MD Work Phone: [facility] 03-07-2025 12:57-0400 Body weight 113.[address] Guanakito Reno MD Work Phone: [facility] 01-21-2025 15:33-0400 Body mass index (BMI) [Ratio] 37.02 kg/m2 Carolina Landeros APRN.BINGO FLOATER Work Phone: [facility] 01-21-2025 15:33-0400 Body temperature 97.59 [degF] Carolina Landeros APRN.BINGO FLOATER Work Phone: [facility] 01-21-2025 15:33-0400 Body weight 117.03 kg Carolina Landeros APRN.BINGO FLOATER Work Phone: [facility] 01-21-2025 15:33-0400 Diastolic blood pressure 60 mm[Hg] Carolina Suppan LEDGER CLERK.BINGO FLOATER Work Phone: [facility] 01-21-2025 15:33-0400 Heart rate 59 /min Carolina Suppan LEDGER CLERK.BINGO FLOATER Work Phone: [facility] 01-21-2025 15:33-0400 SaO2% (BldA) [Mass fraction] 97 % Carolina Suppan LEDGER CLERK.BINGO FLOATER Work Phone: [facility] 01-21-2025 15:33-0400 Systolic blood pressure 122 mm[Hg] Carolina Suppan LEDGER CLERK.BINGO FLOATER Work Phone: [facility] 08-06-2024 12:57-0400 Body height 177.8 cm Laura Iraheta MD Work Phone: [facility] Comment on above: patient reports 08-06-2024 12:57-0400 Body mass index (BMI) [Ratio] 34.44 kg/m2 Laura Iraheta MD Work Phone: [facility] 08-06-2024 12:57-0400 Body weight 108.86 kg Laura Iraheta MD Work Phone: [facility] 08-06-2024 12:57-0400 Diastolic blood pressure 68 mm[Hg] Laura Iraheta MD Work Phone: [facility] 08-06-2024 12:57-0400 Heart rate 61 /min Laura Iraheta MD Work Phone: [facility] 08-06-2024 12:57-0400 SaO2% (BldA) [Mass fraction] 99 % Laura Iraheta MD Work Phone: [facility] 08-06-2024 12:57-0400 Systolic blood pressure 128 mm[Hg] Laura Iraheta MD Work Phone: [facility] 07-12-2024 11:22-0400 Body height 177.8 cm Guanakito Reno MD Work Phone: [facility] 07-12-2024 11:22-0400 Body mass index (BMI) [Ratio] 34.55 kg/m2 Guanakito Reno MD Work Phone: [facility] 07-12-2024 11:22-0400 Body weight 109.23 kg Guanakito Reno MD Work Phone: [facility] 07-12-2024 11:22-0400 Diastolic blood pressure 62 mm[Hg] Guanakito Reno MD Work Phone: [facility] 07-12-2024 11:22-0400 Heart rate 59 /min Guanakito Reno MD Work Phone: [facility] 07-12-2024 11:22-0400 Systolic blood pressure 114 mm[Hg] Guanakito Reno MD Work Phone: [facility] 07-10-2024 08:11-0400 Body height 177.8 cm Cal Mondragon MD Work Phone: [facility] Comment on above: Patient reports 07-10-2024 08:11-0400 Body mass index (BMI) [Ratio] 34.49 kg/m2 Cal Mondragon MD Work Phone: [facility] 07-10-2024 08:11-0400 Body weight 109.05 kg Cal Mondragon MD Work Phone: [facility] 07-10-2024 08:11-0400 Diastolic blood pressure 70 mm[Hg] Cal Mondragon MD Work Phone: [facility] 07-10-2024 08:11-0400 Heart rate 94 /min Cal Mondragon MD Work Phone: [facility] 07-10-2024 08:11-0400 SaO2% (BldA) [Mass fraction] 94 % Cal Mondragon MD Work Phone: [facility] 07-10-2024 08:11-0400 Systolic blood pressure 120 mm[Hg] Cal Mondragon MD Work Phone: [facility] 07-10-2024 08:08-0400 Body height 177.8 cm Pam Reddy MD Work Phone: [facility] Comment on above: Patient reports 07-10-2024 08:08-0400 Body mass index (BMI) [Ratio] 34.49 kg/m2 Pam Reddy MD Work Phone: [facility] 07-10-2024 08:08-0400 Body weight 109.05 kg Pam Reddy MD Work Phone: [facility] Comment on above: Fully clothed with shoes on. 07-10-2024 08:08-0400 Diastolic blood pressure 70 mm[Hg] Pma Reddy MD Work Phone: [facility] 07-10-2024 08:08-0400 Heart rate 94 /min Pam Reddy MD Work Phone: [facility] 07-10-2024 08:08-0400 SaO2% (BldA) [Mass fraction] 94 % Pam Reddy MD Work Phone: [facility] 07-10-2024 08:08-0400 Systolic blood pressure 120 mm[Hg] Pam Reddy MD Work Phone: [facility] 06-06-2024 11:31-0400 Body mass index (BMI) [Ratio] 36.03 kg/m2 Carolina Suppan LEDGER CLERK.BINGO FLOATER Work Phone: [facility] 06-06-2024 11:31-0400 Body weight 110.68 kg Carolina Suppan LEDGER CLERK.BINGO FLOATER Work Phone: [facility] 06-06-2024 11:31-0400 Diastolic blood pressure 68 mm[Hg] Carolina Suppan LEDGER CLERK.BINGO FLOATER Work Phone: [facility] 06-06-2024 11:31-0400 Heart rate 71 /min Carolina Suppan LEDGER CLERK.BINGO FLOATER Work Phone: [facility] 06-06-2024 11:31-0400 Respiratory rate 18 /min Carolina Suppan LEDGER CLERK.BINGO FLOATER Work Phone: [facility] 06-06-2024 11:31-0400 SaO2% (BldA) [Mass fraction] 99 % Carolina Landeros LEDGER CLERK.BINGO FLOATER Work Phone: [facility] 06-06-2024 11:31-0400 Systolic blood pressure 144 mm[Hg] Carolina Suppan LEDGER CLERK.BINGO FLOATER Work Phone: [facility] 06-05-2024 16:41-0400 Body mass index (BMI) [Ratio] 36.04 kg/m2 Valerie Connelly LEDGER CLERK.BINGO FLOATER Work Phone: [facility] 06-05-2024 16:41-0400 Body temperature 96.6 [degF] Valerie Connelly LEDGER CLERK.BINGO FLOATER Work Phone: [facility] 06-05-2024 16:41-0400 Body weight 110.7 kg Valerie Connelly LEDGER CLERK.BINGO FLOATER Work Phone: [facility] 06-05-2024 16:41-0400 Diastolic blood pressure 70 mm[Hg] Valerie Connelly LEDGER CLERK.BINGO FLOATER Work Phone: [facility] 06-05-2024 16:41-0400 Heart rate 75 /min Valerie Connelly LEDGER CLERK.BINGO FLOATER Work Phone: [facility] 06-05-2024 16:41-0400 Respiratory rate 19 /min Valerie Connelly LEDGER CLERK.BINGO FLOATER Work Phone: [facility] 06-05-2024 16:41-0400 SaO2% (BldA) [Mass fraction] 97 % Valerie Connelly LEDGER CLERK.BINGO FLOATER Work Phone: [facility] 06-05-2024 16:41-0400 Systolic blood pressure 140 mm[Hg] Valerie Connelly LEDGER CLERK.BINGO FLOATER Work Phone: [facility] 05-06-2024 17:38-0400 Body height 175.3 cm Corrina Lennon LEDGER CLERK.BINGO FLOATER Work Phone: [facility] 05-06-2024 17:38-0400 Body mass index (BMI) [Ratio] 37.95 kg/m2 Corrina Haagen LEDGER CLERK.BINGO FLOATER Work Phone: [facility] 05-06-2024 17:38-0400 Body weight 116.57 kg Corrina Haagen LEDGER CLERK.BINGO FLOATER Work Phone: [facility] 05-06-2024 17:38-0400 Diastolic blood pressure 58 mm[Hg] Corrina Haagen LEDGER CLERK.BINGO FLOATER Work Phone: [facility] 05-06-2024 17:38-0400 Heart rate 62 /min Corrina Haagen LEDGER CLERK.BINGO FLOATER Work Phone: [facility] 05-06-2024 17:38-0400 Respiratory rate 14 /min Corrina Haagen LEDGER CLERK.BINGO FLOATER Work Phone: [facility] 05-06-2024 17:38-0400 SaO2% (BldA) [Mass fraction] 89 % Corrina Haagen LEDGER CLERK.BINGO FLOATER Work Phone: [facility] 05-06-2024 17:38-0400 Systolic blood pressure 122 mm[Hg] Corrina Haagen LEDGER CLERK.BINGO FLOATER Work Phone: [facility] 04-08-2024 15:17-0400 Body mass index (BMI) [Ratio] 37.63 kg/m2 Corrina Haagen LEDGER CLERK.BINGO FLOATER Work Phone: [facility] 04-08-2024 15:17-0400 Body weight 115.58 kg Corrina Haagen LEDGER CLERK.BINGO FLOATER Work Phone: [facility] 04-08-2024 14:55-0400 Diastolic blood pressure 58 mm[Hg] Corrina Haagen LEDGER CLERK.BINGO FLOATER Work Phone: [facility] 04-08-2024 14:55-0400 Heart rate 72 /min Corrina Haagen LEDGER CLERK.BINGO FLOATER Work Phone: [facility] 04-08-2024 14:55-0400 Respiratory rate 16 /min Corrina Haagen LEDGER CLERK.BINGO FLOATER Work Phone: [facility] 04-08-2024 14:55-0400 Systolic blood pressure 102 mm[Hg] Corrina Haagen LEDGER CLERK.BINGO FLOATER Work Phone: [facility] 03-26-2024 16:33-0400 Body height 175.3 cm Guanakito Reno MD Work Phone: [facility] 03-26-2024 16:33-0400 Body mass index (BMI) [Ratio] 37.07 kg/m2 Guanakito Reno MD Work Phone: [facility] 03-26-2024 16:33-0400 Body weight 113.85 kg Guanakito Reno MD Work Phone: [facility] 03-26-2024 16:33-0400 Diastolic blood pressure 46 mm[Hg] Guanakito Reno MD Work Phone: [facility] 03-26-2024 16:33-0400 Heart rate 86 /min Guanakito Reno MD Work Phone: [facility] 03-26-2024 16:33-0400 SaO2% (BldA) [Mass fraction] 98 % Guanakito Reno MD Work Phone: [facility] 03-26-2024 16:33-0400 Systolic blood pressure 98 mm[Hg] Guanakito Reno MD Work Phone: [facility] 03-25-2024 14:52-0400 Body mass index (BMI) [Ratio] 37.21 kg/m2 Pam Reddy MD Work Phone: [facility] 03-25-2024 14:52-0400 Body weight 114.31 kg Pam Reddy MD Work Phone: [facility] 03-25-2024 14:52-0400 Diastolic blood pressure 69 mm[Hg] Pam Reddy MD Work Phone: [facility] 03-25-2024 14:52-0400 Heart rate 66 /min Pam Reddy MD Work Phone: [facility] 03-25-2024 14:52-0400 SaO2% (BldA) [Mass fraction] 96 % Pam Reddy MD Work Phone: [facility] 03-25-2024 14:52-0400 Systolic blood pressure 116 mm[Hg] Pam Reddy MD Work Phone: [facility] 12-22-2023 14:55-0500 Body temperature 97.81 [degF] Carolina Suppan LEDGER CLERK.MACHINE BANDER AND CELLOPHANER Work Phone: [facility] 12-22-2023 14:55-0500 Diastolic blood pressure 60 mm[Hg] Carolina Suppan LEDGER CLERK.MACHINE BANDER AND CELLOPHANER Work Phone: [facility] 12-22-2023 14:55-0500 Heart rate 76 /min Carolina Suppan LEDGER CLERK.MACHINE BANDER AND CELLOPHANER Work Phone: [facility] 12-22-2023 14:55-0500 Respiratory rate 18 /min Carolina Suppan LEDGER CLERK.MACHINE BANDER AND CELLOPHANER Work Phone: [facility] 12-22-2023 14:55-0500 SaO2% (BldA) [Mass fraction] 99 % Carolina Suppan LEDGER CLERK.MACHINE BANDER AND CELLOPHANER Work Phone: [facility] 12-22-2023 14:55-0500 Systolic blood pressure 122 mm[Hg] Carolina Suppan LEDGER CLERK.MACHINE BANDER AND CELLOPHANER Work Phone: [facility] 08-14-2023 13:24-0400 Body height 175.3 cm Guanakito Reno MD Work Phone: [facility] 08-14-2023 13:24-0400 Body weight 120.75 kg Guanakito Reno MD Work Phone: [facility] 08-14-2023 13:24-0400 Diastolic blood pressure 68 mm[Hg] Guanakito eRno MD Work Phone: [facility] 08-14-2023 13:24-0400 Heart rate 59 /min Guanakito Reno MD Work Phone: [facility] 08-14-2023 13:24-0400 SaO2% (BldA) [Mass fraction] 99 % Guanakito Reno MD Work Phone: [facility] 08-14-2023 13:24-0400 Systolic blood pressure 120 mm[Hg] Guanakito Reno MD Work Phone: [facility] 02-13-2023 14:39-0400 Body weight 119.75 kg Pam Reddy MD Work Phone: [facility] 02-13-2023 14:39-0400 Diastolic blood pressure 60 mm[Hg] Pam Reddy MD Work Phone: [facility] 02-13-2023 14:39-0400 Heart rate 78 /min Pam Reddy MD Work Phone: [facility] 02-13-2023 14:39-0400 SaO2% (BldA) [Mass fraction] 96 % Pam Reddy MD Work Phone: [facility] 02-13-2023 14:39-0400 Systolic blood pressure 110 mm[Hg] Pam Reddy MD Work Phone: [facility] 02-06-2023 15:29-0400 Body weight 118.39 kg Guanakito Reno MD Work Phone: [facility] 02-06-2023 15:29-0400 Diastolic blood pressure 58 mm[Hg] Guanakito Reno MD Work Phone: [facility] 02-06-2023 15:29-0400 Heart rate 76 /min Guanakito Reno MD Work Phone: [facility] 02-06-2023 15:29-0400 Respiratory rate 16 /min Guanakito Reno MD Work Phone: [facility] 02-06-2023 15:29-0400 SaO2% (BldA) [Mass fraction] 94 % Guanakito Reno MD Work Phone: [facility] 02-06-2023 15:29-0400 Systolic blood pressure 122 mm[Hg] Guanakito Reno MD Work Phone: [facility] 10-04-2022 10:38-0500 Body height 175.3 cm Alondra Prescott DO Work Phone: [facility] 10-04-2022 10:38-0500 Body weight 117.03 kg Alondra Prescott DO Work Phone: [facility] 10-04-2022 10:38-0500 Diastolic blood pressure 66 mm[Hg] Alondra Prescott DO Work Phone: [facility] 10-04-2022 10:38-0500 Heart rate 57 /min Alondra Prescott DO Work Phone: [facility] 10-04-2022 10:38-0500 SaO2% (BldA) [Mass fraction] 100 % Alondra Prescott DO Work Phone: [facility] 10-04-2022 10:38-0500 Systolic blood pressure 122 mm[Hg] Alondra Prescott DO Work Phone: [facility] 08-15-2022 14:50-0400 Body height 175.3 cm Pam Reddy MD Work Phone: [facility] 08-15-2022 14:50-0400 Body weight 119.3 kg Pam Reddy MD Work Phone: [facility] 08-15-2022 14:50-0400 Diastolic blood pressure 62 mm[Hg] Pam Reddy MD Work Phone: [facility] 08-15-2022 14:50-0400 Heart rate 58 /min Pam Reddy MD Work Phone: [facility] 08-15-2022 14:50-0400 Respiratory rate 18 /min Pam Reddy MD Work Phone: [facility] 08-15-2022 14:50-0400 SaO2% (BldA) [Mass fraction] 98 % Pam Reddy MD Work Phone: [facility] 08-15-2022 14:50-0400 Systolic blood pressure 114 mm[Hg] Pam Reddy MD Work Phone: [facility] 01-19-2022 15:14-0400 Body weight 121.11 kg Guanakito Reno MD Work Phone: [facility] 01-19-2022 15:14-0400 Diastolic blood pressure 68 mm[Hg] Guanakito Reno MD Work Phone: [facility] 01-19-2022 15:140400 Heart rate 60 /min Guanakito Reno MD Work Phone: [facility] 01-19-2022 15:14-0400 Systolic blood pressure 124 mm[Hg] Gunaakito Reno MD Work Phone: [facility] Encounters Encounter Date Encounter Type Care Provider Facility Start: 08-26-2025 ambulatory Josafat Simon OLS Facil ity:[facility] Start: 08-19-2025 ambulatory Josafat Simon OLS Facil ity:[facility] Start: 08-14-2025 ambulatory Josafat Simon OLS Facil ity:[facility] Start: 07-31-2025 ambulatory Josafat Simon OLS Facil ity:[facility] Start: 07-17-2025 End: 07-17-2025 ambulatory Guanakito Shadia Facility:[facility] Start: 07-08-2025 End: 07-08-2025 ambulatory Josafat Simon OLS Facility:[facility] Start: 06-24-2025 End: 06-24-2025 ambulatory Josafat Simon OLS Facility:[facility] Start: 06-17-2025 ambulatory Josafat Simon OLS Facil ity:[facility] Start: 06-12-2025 End: 06-12-2025 ambulatory Josafat Simon OLS Facility:[facility] Start: 06-10-2025 End: 06-10-2025 ambulatory Bianka ORTEZ Facility:[facility] Start: 06-03-[address] Josafat juarez MD -[facility] Start: 06-03-2025 End: 06-03-2025 ambulatory Guanakito [place] Facility:[facility] Start: 05-27-[address] Josafat juarez MD -[facility] Start: 05-27-2025 End: 05-27-2025 ambulatory Josafat ORTEZ Facility:[facility] Start: 05-20-2025 End: 05-20-[address] Guanakito Reno MD Work Phone: -[facility] Start: 05-20-2025 End: 05-20-[address] Josafat Simon MD [facility] Start: 05-20-2025 End: 05-20-2025 ambulatory Josafat ORTEZ Facility:[facility] Start: 05-15-2025 ambulatory Josafat ORTEZ Facil ity:[facility] Start: 05-15-[address] Josafat juarez MD [facility] Start: 05-13-[address] Josafat juarez MD [facility] Start: 05-13-2025 End: 05-13-2025 ambulatory Josafat ORTEZ Facility:[facility] Start: 05-08-2025 ambulatory Josafat ORTEZ Facil ity:[facility] Start: 05-08-[address] Josafat juarez MD [facility] Start: 05-06-[address] Josafat juarez MD [facility] Start: 05-06-2025 End: 05-06-2025 ambulatory Josafat ORTEZ Facility:[facility] Start: 05-02-2025 End: 05-02-[address] Burt Zamora MD -[facility] Start: 05-02-2025 End: 05-02-[address] Guanakito Reno MD Work Phone: -[facility] Start: 05-01-2025 ambulatory Josafat ORTEZ Facil ity:[facility] Start: 05-01-[address] Josafat juarez MD [facility] Start: 04-29-[address] Josafat jaurez MD [facility] Start: 04-29-2025 End: 04-29-2025 ambulatory Josafat ORTEZ Facility:[facility] Start: 04-24-2025 ambulatory Josafat ORTEZ Facil ity:[facility] Start: 04-24-[address] Josafat juarez MD [facility] Start: 04-17-[address] Bianka Gonzalez MD [facility] Start: 04-17-2025 End: 04-17-2025 ambulatory Bianka ORTEZ Facility:[facility] Start: 04-15-2025 End: 04-15-2025 Telephone encounter Twin Kelsey [facility] Ambulatory Telemanagement Comment on above: Anticoagulation Tele phone Fu (Home INR result) Start: 04-14-2025 End: 04-14-2025 Telephone encounter Guanakito Reno MD Work Phone: [facility] Comment on above: Patient Question Start: 04-14-2025 ambulatory Josafat García Facility :[facility] Start: 04-14-[address] Josafat García MD -Physical Therapy Work Phone: Start: 04-08-2025 End: 04-08-2025 Refill Carolina Landeros LEDGER CLERK.BINGO FLOATER Work Phone: [facility] Comment on above: Refill Request Start: 03-28-2025 End: 03-28-2025 Telephone encounter Guanakito Reno MD Work Phone: [facility] Comment on above: Faxed to [facility] Start: 03-24-2025 End: 03-24-2025 Telephone encounter Alejandro Molina [facility] Ambulatory Telemanagement Comment on above: Anticoagulation Tele phone Fu (Home INR Result ) Start: 03-07-2025 End: 03-07-[address] Josafat García MD -[facility] Work Phone: Start: 03-07-2025 End: 03-07-2025 ambulatory Guanakito Reno Facility:[facility] Start: 03-06-2025 End: 03-06-2025 ambulatory CAROLINA LANDEROS Facility:[facility] Start: 03-05-2025 End: 03-06-2025 Emergency department patient visit KEDAR HERNANDEZ Facility:[facility] Start: 02-20-2025 End: 02-20-2025 Telephone encounter Jimmy Carrizales [facility] Ambulatory Telemanagement Comment on above: Anticoagulation Tele phone Fu (Home INR) Start: 01-31-2025 End: 01-31-2025 Telephone encounter Kamran Ayon [facility] Ambulatory Telemanagement Comment on above: Anticoagulation Tele phone Fu (INR Home Test Result) Start: 01-23-2025 End: 03-25-2025 Follow-up encounter Carolina Landeros APRN.CNP Work Phone: [facility] Start: 01-21-2025 End: 01-21-2025 ambulatory CAROLINA LANDEROS Facility:[facility] Start: 01-21-2025 End: 01-21-2025 Office outpatient visit 25 minutes Carolina Landeros APRN.BINGO FLOATER Work Phone: [facility] Comment on above: Hyperlipidemia, mixe d [...] (HCC); Chronic renal disease, stage IV (HCC); terminologist (current) use of anticoagulants; Obesity, Class II, BMI 35-39.9; Viral conjunctivitis; Seasonal allergic rhinitis, unspecified trigger; Bilateral impacted cerumen Start: 01-08-2025 End: 01-15-2025 Telephone encounter Ruthie Cuevas [facility] Ambulatory Telemanagement Comment on above: Anticoagulation Foll ow Up (Home INR result ) Start: 01-07-2025 End: 01-08-2025 Refill Corrina Lennon APRN.BINGO FLOATER Work Phone: [facility] Comment on above: Refill Request Start: 12-30-2024 End: 12-30-2024 Telephone encounter Twin Cole [facility] Ambulatory Telemanagement Comment on above: Anticoagulation Tele phone Fu (Home INR result) Start: 12-11-2024 End: 12-11-2024 Telephone encounter Jimmy Carrizales [facility] Ambulatory Telemanagement Comment on above: Anticoagulation Tele phone Fu (Home INR) Start: 11-26-2024 End: 11-26-2024 Telephone encounter Twin Cole [facility] Ambulatory Telemanagement Comment on above: Anticoagulation Tele phone Fu (Home INR result) Start: 10-28-2024 End: 10-28-2024 Telephone encounter Alejandro Molina [facility] Ambulatory Telemanagement Comment on above: Anticoagulation Tele phone Fu (Home INR Result ) Start: 10-21-2024 End: 10-21-2024 Telephone encounter Guanakito Reno MD Work Phone: [facility] Comment on above: Patient Update; Rozina ent Question Start: 10-01-2024 End: 10-01-2024 Telephone encounter Twin Cole [facility] Ambulatory Telemanagement Comment on above: Anticoagulation Tele phone Fu (Home INR result) Start: 08-26-2024 End: 08-26-2024 Telephone encounter Alejandro Ulysses [facility] Ambulatory Telemanagement Comment on above: Anticoagulation Tele phone Fu (Home INR Result ) Start: 08-19-2024 End: 08-19-2024 ambulatory Melania Galindo RN [employer] [facility] Comment on above: ACNiels SMITH RN ( Medication Adherence Review per Request of Payor ) Start: 08-16-2024 End: 08-16-2024 Telephone encounter Jimmy Stanley [facility] Start: 08-06-2024 End: 08-06-2024 Office outpatient new 45 minutes Laura Iraheta MD Work Phone: [facility] Comment on above: Bilateral carotid ar jeanne stenosis (Primary Dx); History of carotid endarterectomy Start: 07-30-2024 End: 07-30-2024 ambulatory Josselyn Mayer LEDGER CLERK.BINGO FLOATER Work Phone: [facility] [place] Start: 07-30-2024 End: 08-01-2024 Telephone encounter Josselyn Mayer LEDGER CLERK.BINGO FLOATER Work Phone: [facility] [place] Comment on above: Threader - O ther Start: 07-25-2024 End: 07-26-2024 Telephone encounter Jimmy Carrizales [facility] Ambulatory Telemanagement Comment on above: Anticoagulation (Pat ient update) Start: 07-23-2024 End: 07-23-[address] ([facility] Start: 07-23-2024 End: 07-23-2024 Subsequent hospital visit by physician [facility] [place] [facility] 1 (I-Stat) RADIO [facility] Comment on above: Nonrheumatic aortic valve stenosis [I35.0] Start: 07-15-2024 End: 07-15-2024 Orders Only Valerie Brito APRN.CNP Work Phone: [facility] Comment on above: Paroxysmal atrial fi brillation (HCC) (Primary Dx); Aortic valve stenosis, etiology of cardiac valve disease unspecified Nonrheumatic aortic valve stenosis (Primary Dx); Paroxysmal atrial fibrillation (HCC) Patient Update Results Start: 07-12-2024 End: 07-12-2024 Telephone encounter Guanakito Reno MD Work Phone: [facility] [place] Start: 07-12-2024 End: 07-15-2024 Patient encounter procedure Guanakito Reno MD Work Phone: [facility] [place] Comment on above: Essential hypertensi on (Primary [...] disease, stage IV (HCC); Mixed dementia (HCC); FPC (current) use of anticoagulants; Need for vaccination Essential hypertensi on (Primary Dx) Start: 07-10-2024 End: 07-10-2024 Subsequent hospital visit by physician Ekg/Holter/Event Monitor [place] [facility] Comment on above: Nonrheumatic aortic valve stenosis [I35.0] Start: 07-10-2024 End: 07-10-2024 Patient encounter procedure Cal Mondragon MD Work Phone: [facility] [place] [facility] Comment on above: [...] encounter status Pam Reddy MD Work Phone: [facility] Work Phone: Start: 07-05-2024 End: 07-05-2024 Telephone encounter Annamarie Garcia [facility] Comment on above: Anticoagulation Tele phone Fu Start: 2024 End: 2024 Telephone encounter Guanakito Reno MD Work Phone: [facility] Start: 06-18-2024 End: 06-18-2024 Telephone encounter Jimmy Carrizales [facility] Ambulatory Telemanagement Comment on above: Anticoagulation Tele phone Fu (Home INR) Start: 06-06-2024 End: 06-06-2024 Office outpatient visit 15 minutes Carolina Landeros APRN.BINGO FLOATER Work Phone: [facility] Comment on above: Aortic valve stenosi s, etiology of cardiac valve disease unspecified (Primary Dx); Hypertensive kidney disease with stage 3b chronic kidney disease (HCC); Paroxysmal atrial fibrillation (HCC); Benign prostatic hyperplasia without lower urinary tract symptoms; Anemia, unspecified type Start: 06-05-2024 End: 06-05-2024 Patient encounter procedure Valerie Connelly APRN.BINGO FLOATER Work Phone: [facility] Comment on above: Blood pressure check (Primary Dx); Leg swelling Start: 06-05-2024 End: 06-05-2024 Patient encounter status Valerie Connelly APRN.BINGO FLOATER Work Phone: [facility] Work Phone: Start: 06-03-2024 End: 06-05-2024 ambulatory Guanakito Reno MD Work Phone: [facility] Comment on above: Water pill/ kidney d r # Start: 05-20-2024 Telephone encounter Josselyn Mayer LEDGER CLERK.BINGO FLOATER Work Phone: [facility] [place] Comment on above: Threader - O ther Results Start: 05-17-2024 Telephone encounter Dorothy Joshua [facility] Comment on above: Anticoagulation Tele phone Fu Start: 05-06-2024 End: 05-06-2024 Office outpatient visit 15 minutes Corrina Lennon APRN.BINGO FLOATER Work Phone: [facility] [place] Comment on above: Essential hypertensi on (Primary Dx); Hypertensive kidney disease with stage 3 chronic kidney disease, unspecified whether stage 3a or 3b CKD (HCC); Anemia, unspecified type Start: 05-02-2024 End: 05-02-2024 Subsequent hospital visit by physician [facility] Work Phone: Radiology Comment on above: Renal insufficiency [N28.9] Start: 04-24-2024 Telephone encounter [facility] Tele[facility] Comment on above: Anticoagulation Tele phone Fu (Home INR) Start: 04-19-2024 Telephone encounter Guanakito Reno MD Work Phone: [facility] [place] Comment on above: Results Start: 04-08-2024 End: 04-08-2024 Office outpatient visit 25 minutes Corrina Lennon APRN.BINGO FLOATER Work Phone: [facility] [place] Comment on above: Essential hypertensi on (Primary [...] Guanakito Reno MD Work Phone: [facility] [place] Comment on above: Results Start: 04-04-2024 Telephone encounter Jimmy Carrizales [facility] Ambulatory Telemanagement Comment on above: Anticoagulation Tele phone Fu (Home INR) Start: 03-26-2024 End: 03-26-2024 Patient encounter procedure Guanakito Reno MD Work Phone: [facility] [place] Comment on above: Essential hypertensi on (Primary [...] 03-07-2024 Telephone encounter Jimmy Carrizales [facility] Ambulatory Telemanagement Comment on above: Anticoagulation Tele phone Fu Start: 02-14-2024 Telephone encounter [facility] Ambulatory Tele[facility] Comment on above: Anticoagulation Tele phone Fu (Home INR results ) Start: 01-17-2024 Refill Guanakito Reno MD Work Phone: [facility] [place] Comment on above: Refill Request requesting medicatio n on list Start: 01-15-2024 Telephone encounter [facility] Ambulatory Tele[facility] Comment on above: Anticoagulation Tele phone Fu (Home INR Result ) Start: 12-22-2023 End: 12-22-2023 Office outpatient visit 15 minutes Carolina Landeros APRN.MACHINE BANDER AND CELLOPHANER Work Phone: [facility] [place] Comment on above: Abrasion of arm, lef t, initial encounter (Primary Dx); Chronic insomnia Start: 12-21-2023 ambulatory Guanakito Reno MD Work Phone: [facility] [place] Comment on above: skin laceration Start: 12-21-2023 Telephone encounter Jimmy Carrizales [facility] Ambulatory Telemanagement Comment on above: [...] payer) Start: 08-22-2023 Telephone encounter Twin Cole [facility] Ambulatory Telemanagement Comment on above: Anticoagulation Tele phone Fu (Home INR result) Start: 08-16-2023 Telephone encounter Guanakito Reno MD Work Phone: [facility] Comment on above: Results Start: 08-15-2023 Telephone encounter Guanakito Reno MD Work Phone: [facility] Comment on above: Results Start: 08-14-2023 End: 08-14-2023 Patient encounter procedure Guanakito Reno MD Work Phone: [facility] Comment on above: Onychomycosis (Prima ry [...] Refill Guanakito Reno MD Work Phone: [facility] [place] Comment on above: Refill Request Start: 2023 ambulatory Lizette Cardenas RN [facility] [place] Comment on above: QI SMITH RN ( Medication Adherence review per request of payer) Start: 05-22-2023 Telephone encounter [facility] Amb[facility] Tele[facility] Comment on above: Anticoagulation Tele phone Fu (Home INR Result ) Start: 04-24-2023 Telephone encounter [facility] Comment on above: Anticoagulation Tele phone Fu (Home INR Result ) Start: 04-19-2023 Refill Guanakito Reno MD Work Phone: [facility] Comment on above: Refill Request Start: 03-28-2023 Telephone encounter Twin Cole [facility] Comment on above: Anticoagulation Tele phone Fu (Home INR result) Start: 02-13-2023 End: 02-13-2023 Patient encounter procedure Pam Reddy MD Work Phone: Cardiology Comment on above: Syncope, unspecified syncope type (Primary Dx); Aortic valve disorder Start: 02-06-2023 End: 02-06-2023 Patient encounter procedure Guanakito Reno MD Work Phone: [facility] Comment on above: Essential hypertensi on [...] Refill Guanakito Reno MD Work Phone: [facility] Comment on above: Refill Request Start: [...] ) Start: 11-18-2022 Telephone encounter Kamran Ayon [facility] Ambulatory Telemanagement Comment on above: Anticoagulation Tele phone Fu Start: 11-04-2022 Telephone encounter Kamran Ayon [facility] Ambulatory Telemanagement Comment on above: Anticoagulation Tele phone Fu (INR Home Test Result) Start: 11-01-2022 Telephone encounter Twin Cole [facility] Ambulatory Telemanagement Comment on [...] 09-23-2022 Refill Guanakito Reno MD Work Phone: [facility] Comment on above: Orders; Refill Reque st Start: 09-21-2022 Telephone encounter Ruthie Cuevas [facility] Ambulatory Telemanagement Comment on above: Anticoagulation Tele phone Fu (Home INR result expected) Start: 09-07-2022 ambulatory Lizette Cardenas RN [facility] [place] Comment on above: QI SMITH RN ( Medication Adherence review at request of payer) Start: 08-22-2022 Telephone encounter [facility] Tele[facility] Comment on above: Anticoagulation (INR result) Start: 08-15-2022 End: 08-15-2022 Patient encounter procedure Pam Reddy MD Work Phone: Cardiology Comment on above: Obesity, Class II, B 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 Comment on above: Refill Request Start: 2022 Telephone encounter [facility] Tele[facility] Comment on above: Anticoagulation (INR result ) Start: 06-14-2022 ambulatory Nirmala Lim MA [facility] [place] Comment on above: Population Health Na vigation Outreach ([facility] care gaps) Start: 06-06-2022 Telephone encounter [facility] Tele[facility] Comment on above: Anticoagulation (Gabrielle e INR) Start: 05-19-2022 Refill Guanakito Reno MD Work Phone: [facility] Comment on above: Refill Request Start: 05-16-2022 Telephone encounter [facility] Tele[facility] Comment on above: Anticoagulation Tele phone Fu (Home INR Result) Start: 04-25-2022 Telephone encounter Val Oliver [facility] Comment on above: [...] result ) Start: 02-17-2022 Telephone encounter Jazmyn Garica [facility] Ambulatory Telemanagement Comment on above: Anticoagulation Tele phone Fu Start: 02-08-2022 Telephone encounter Twin Cole [facility] Ambulatory Telemanagement Comment on above: Anticoagulation Tele phone Fu (Home INR result) Start: 01-25-2022 Telephone encounter Twin Cole [facility] Ambulatory Telemanagement Comment on above: Anticoagulation Tele phone Fu (Home INR result) Start: 01-19-2022 End: 01-19-2022 Patient encounter procedure Guanakito Reno MD Work Phone: [facility] Comment on above: Essential hypertensi on [...] Anticoagulation Tele phone Fu Start: 06-07-2018 Ambulatory [facility] Facility :[facility] Start: 11-24-2017 End: 11-24-2017 [facility] Facility:[facility] Procedures Date Procedure Procedure [...] Velasquez with bovine patch angioplasty, 04/17/2014 @ [facility] History of carotid endarterectomy History of carotid endarterectomy Guanakito Reno MD Work Phone: History of carotid endarterectomy History of carotid endarterectomy Laura Iraheta MD Work Phone: Plan of Treatment Date Care Activity Detail Author Start: 04-22-2031 Urine microalbumin profile [facility] Start: 01-21-2026 Diabetic foot examination Diabetic Foot Exam [facility] Start: 01-21-2026 Hepatitis B surface antibody level LDL Cholesterol [facility] Start: 08-06-2025 End: 09-05-2025 US Carotid arteries - bilateral US CAROTID BILATERAL Radiology Routine Bilateral carotid artery stenosis History of carotid endarterectomy Expected: 08/06/2025 (Approximate), Expires: 09/05/2025 [facility] Work Phone: Comment on above: Expected: 08/06/2025 (Approximate), Expi res: 09/05/2025 Start: 07-23-2025 End: 07-23-2025 Patient encounter procedure 07/23/2025 3:20 PM EDT Office Visit Family [facility] [address] [place] [address] Guanakito Reno MD [address] [place] [address] 6 month exam [facility] [place] Comment on above: 6 month exam Start: 07-23-2025 Hemoglobin A1c measurement HbA1C [facility] Start: 07-12-2025 Covid-19 Vaccine ( season) Covid-19 Vaccine () [facility] Comment on above: Postponed from 01/09/2025 (Declined at t his time) Start: 07-12-2025 Hepatitis B surface antibody level LDL Cholesterol [facility] Start: 06-16-2025 Influenza [facility] Start: 05-06-2025 Annual PCP Team Chronic Disease Visit Annual PCP Team Chronic Disease Visit [facility] Start: 05-06-2025 BP Controlled (<130/80) BP Controlled (<130/80) [facility] in Start: 05-02-2025 Plain X-ray of shoulder Shoulder min 2 Views [facility] Start: 05-02-2025 XR Shoulder GE 2 Views [facility] Start: 04-19-2025 Complete blood count Hemoglobin/Hematocrit [facility] Start: 04-19-2025 Creatinine measurement Serum Creatinine [facility] Start: 04-08-2025 Annual PCP Team Chronic Disease Visit Annual PCP Team Chronic Disease Visit [facility] Start: 04-08-2025 BP Controlled (<130/80) BP Controlled (<130/80) [facility] in Start: 04-04-2025 Complete blood count Hemoglobin/Hematocrit [facility] Start: 04-04-2025 Creatinine measurement Serum Creatinine [facility] Start: 03-26-2025 Annual PCP Team Chronic Disease Visit Annual PCP Team Chronic Disease Visit [facility] Start: 03-26-2025 BP Controlled (<130/80) BP Controlled (<130/80) [facility] in Start: 03-26-2025 Covid-19 Vaccine () Covid-19 Vaccine () [facility] Comment on above: Postponed from 12/14/2023 (Declined at t his time) Start: 03-26-2025 Shingrix Vaccine (1 of 2) Shingrix Vaccine (1 of 2) [facility] Comment on above: Postponed from 1993 (Declined at t his time) Start: 03-25-2025 BP Controlled (<130/80) BP Controlled (<130/80) [facility] in Start: 03-25-2025 Complete blood count Hemoglobin/Hematocrit [facility] Start: 03-25-2025 Creatinine measurement Serum Creatinine [facility] Start: 01-21-2025 End: 01-21-2025 Patient encounter procedure 01/21/2025 3:40 PM EDT Office Visit [facility] [place] [address] [place] [address] Carolina Landeros APRN.BINGO FLOATER [address] [place] [address] [facility] Comment on above: 6 month follow up Start: 01-21-2025 End: 04-22-2025 CBC W Auto Differential panel - Blood [facility] Comment on above: Expected: 01/21/2025, Expires: Start: 01-21-2025 End: 04-22-2025 Cobalamin (Vitamin B12) [Mass/volume] in Serum or Plasma [facility] Comment on above: Expected: 01/21/2025, Expires: Start: 01-21-2025 End: 04-22-2025 Comprehensive metabolic 2000 panel - Serum or Plasma [facility] Work Phone: Comment on above: Expected: 01/21/2025, Expires: Start: 01-21-2025 End: 04-22-2025 Hemoglobin A1c in Blood [facility] Comment on above: Expected: 01/21/2025, Expires: Start: 01-21-2025 End: 04-22-2025 LIPID PANEL, NONFASTING [facility] Comment on above: Expected: 01/21/2025, Expires: Start: 01-21-2025 End: 04-22-2025 Magnesium [Mass/volume] in Serum or Plasma [facility] Comment on above: Expected: 01/21/2025, Expires: Start: 01-13-2025 End: 01-13-2025 Patient encounter procedure 01/13/2025 10:40 AM EDT [facility] [address] [place] [address] Guanakito Reno MD [address] [facility] [place] [address] 6 month follow up [facility] Comment on above: 6 month follow up Start: 01-09-2025 Hemoglobin A1c measurement HbA1C [facility] Start: 12-21-2024 BP Controlled (<130/80) BP Controlled (<130/80) [facility] in[place] Start: 10-16-2024 Advance Directive Discussion Advance Directive Discussion [facility] Start: 10-16-2024 Medicare Advantage Annual Wellness Visit [facility] Annual Wellness Visit [facility] Start: 10-04-2024 Hemoglobin A1c measurement HbA1C [facility] Start: 08-14-2024 3 comp foot exam completed Diabetic Foot Exam [facility] Start: 08-14-2024 Annual PCP Team Chronic Disease Visit Annual PCP Team Chronic Disease Visit [facility] Start: 08-14-2024 BP Controlled (<130/80) BP Controlled (<130/80) [facility] in Start: 08-14-2024 Complete blood count Hemoglobin/Hematocrit [facility] Start: 08-14-2024 Creatinine measurement Serum Creatinine [facility] Start: 08-14-2024 Diabetic foot examination Diabetic Foot Exam [facility] Start: 08-14-2024 Hemoglobin/Hematocrit Hemoglobin/Hematocrit [facility] Start: 08-14-2024 Hepatitis B surface antibody level LDL Cholesterol [facility] Start: 08-14-2024 Hepatitis B Vaccine (1 of 3 - Risk 3-dose series) Hepatitis B Vaccine (1 of 3 - Risk 3-dose series) [facility] Comment on above: Postponed from 2003 (Declined at t his time) Start: 08-14-2024 RSV Vaccine (1 - 1-dose 60+ series) RSV Vaccine (1 - 1-dose 60+ series) [facility] Comment on above: Postponed from 2003 (Declined at t his time) Start: 08-14-2024 RSV Vaccine (1 - 1-dose 75+ series) RSV Vaccine (1 - 1-dose 75+ series) [facility] Comment on above: Postponed from 2018 (Declined at t his time) Start: 08-14-2024 Serum Creatinine Serum Creatinine [facility] Start: 08-06-2024 End: 08-06-2024 Patient encounter procedure 08/06/2024 1:00 PM EDT Office Visit [facility] [address] [place], [place] [id number] Laura Iraheta MD [address] [facility] [address] [place] [address] Referral from Josselyn Mayer - carotid stenosis 05/02/24 Carotid US [facility] Comment on above: Referral from Josselyn Mayer - carotid s tenosis 05/02/24 Carotid US Start: 07-29-2024 End: 07-29-2024 ambulatory 07/29/2024 11:15 AM EDT Results Only [facility] [address] [place] [address] [facility] Start: 07-23-2024 End: 07-23-2024 Admission to same day surgery center 07/23/2024 10:00 AM EDT - 07/23/2024 11:30 AM EDT Surgery [place] [employer] [address] [place] [address] Pam Reddy MD [address], [address] [place], [place] [id number] CORONARY CATH RIGHT/LEFT HEART ANGIO INTRAPROCEDURAL INJECT IMAGING SUPERVISIO/INTERPRETATIO N [place] [facility] [employer] Comment on above: CORONARY CATH RIGHT/LEFT HEART ANGIO INT RAPROCEDURAL INJECT IMAGING SUPERVISIO/INTERPRETATION Start: 07-23-2024 End: 07-23-2024 R & l hrt cath winjx hrt art& l ventr img CORONARY CATH RIGHT/LEFT HEART ANGIO INTRAPROCEDURAL INJECT IMAGING SUPERVISIO/INTERPRETATIO N Valvular heart disease 07/23/2024 10:00 AM EDT [place] [employer] [employer] Start: 07-23-2024 Subsequent hospital visit by physician 07/23/2024 10:00 AM EDT Hospital Encounter [place] [facility] [address] [place] [address] Pam Reddy MD [address], [address] [place], [place] [id number] Valvular heart disease [I38] [place] [employer] [employer] Comment on above: Valvular heart disease [I38] Start: 07-23-2024 End: 07-23-2024 Patient encounter procedure 07/23/2024 7:30 AM EDT Appointment RAD[facility] [address] [place] [address] 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 [...] atrial fibrillation (HCC) Expected: 07/15/2024, Expires: 10/14/2024 [facility] Work Phone: Comment on above: Expected: 07/15/2024, Expires: Start: 07-12-2024 End: 10-11-2024 CBC W Auto Differential panel - Blood [facility] Comment on above: Expected: 07/12/2024, Expires: 4 Start: 07-12-2024 End: 10-11-2024 Comprehensive metabolic 2000 panel - Serum or Plasma [facility] Comment on above: Expected: 07/12/2024, Expires: Start: 07-12-2024 End: 10-11-2024 Hemoglobin A1c in Blood [facility] Work Phone: Comment on above: Expected: 07/12/2024, Expires: Start: 07-12-2024 End: 10-11-2024 LIPID PANEL, NONFASTING [facility] Comment on above: Expected: 07/12/2024, Expires: Start: 07-12-2024 End: 07-12-2024 Patient encounter procedure 07/12/2024 11:20 AM EDT Office Visit [facility] [address] [facility] [place] [address] Guanakito Reno MD [address] [facility] [place] [address] 2 month follow up- stool sample,kidney and meds [facility] Comment on above: 2 month follow up- stool sample,kidney a nd meds Start: 07-10-2024 End: 10-09-2024 Basic metabolic 2000 panel - Serum or Plasma BASIC METABOLIC PANEL Lab Routine Nonrheumatic aortic valve stenosis Expected: 07/10/2024, Expires: 10/09/2024 [facility] Comment on above: Expected: 07/10/2024, Expires: Start: 07-10-2024 End: 10-09-2024 CBC panel - Blood by Automated count COMPLETE BLOOD COUNT Lab Routine Nonrheumatic aortic valve stenosis Expected: 07/10/2024, Expires: 10/09/2024 [facility] Comment on above: Expected: 07/10/2024, Expires: Start: 07-10-2024 End: 10-09-2024 Natriuretic peptide.B prohormone N-Terminal [Mass/volume] in Serum or Plasma NT PRO BNP Lab Routine Nonrheumatic aortic valve stenosis Dyspnea on exertion Expected: 07/10/2024, Expires: 10/09/2024 [facility] Comment on above: Expected: 07/10/2024, Expires: Start: 07-10-2024 End: 10-09-2024 PT panel - Platelet poor plasma by Coagulation assay PROTHROMBIN TIME Lab Routine Nonrheumatic aortic valve stenosis Expected: 07/10/2024, Expires: 10/09/2024 [facility] Comment on above: Expected: 07/10/2024, Expires: Start: 07-10-2024 End: 07-10-2024 Patient encounter procedure [facility] Comment on above: Valve Clinic- Initial Visit- 5M Walk,EKG ,KCCQ Start: 06-16-2024 Covid-19 Vaccine ( season) Covid-19 Vaccine ( season) [facility] Start: 06-16-2024 Covid-19 Vaccine ( season) Covid-19 Vaccine () [facility] Start: 06-16-2024 Influenza vaccination Influenza Vaccine (#1) [facility] Start: 06-06-2024 End: 06-06-2024 Patient encounter procedure 06/06/2024 11:20 AM EDT Office Visit [facility] [address] [place] [address] Carolina Landeros APRN.BINGO FLOATER [address] [place], [place] [id number] Urgent care follow up [facility] Comment on above: Urgent care follow up Start: 05-06-2024 End: 05-06-2024 Patient encounter procedure 05/06/2024 5:40 PM EDT [facility] [address] [place] [address] Corrina Lennon APRN.BINGO FLOATER [address] [place] [address] 1 month follow up [facility] [place] Comment on above: 1 month follow up Start: 05-02-2024 End: 05-02-2024 Patient encounter procedure Radiology Comment on above: Renal insufficiency [N28.9] History of carotid e ndarterectomy [Z98.890] Syncope, unspecified syncope type [R55]; Aortic valve disorder [I35.9] Start: 04-08-2024 End: 04-08-2024 Patient encounter procedure 04/08/2024 3:00 PM EDT Office Visit [facility] [place] [address] [place] [address] Corrina Lennon APRN.BINGO FLOATER [address] [place] [address] 2 w f/u [facility] Comment on above: 2 w f/u Start: 04-08-2024 End: 03-25-2025 Echocardiography ECHO Cardiology Routine Syncope, unspecified syncope type Aortic valve disorder Expected: 04/08/2024, Expires: 03/25/2025 [facility] Comment on above: Expected: 04/08/2024, Expires: 5 Start: 04-05-2024 End: 07-05-2024 Basic metabolic 2000 panel - Serum or Plasma BASIC METABOLIC PANEL Lab Routine CKD (chronic kidney disease) stage 4, 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/min (HCC) Anemia, unspecified type Expected: 04/05/2024, Expires: 07/05/2024 [facility] Comment on above: Expected: 04/05/2024, Expires: 4 Start: 04-05-2024 End: 07-05-2024 CBC W Auto Differential panel - Blood COMPLETE BLOOD COUNT AND DIFFERENTIAL Lab Routine CKD (chronic kidney disease) stage 4, 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/min (HCC) Anemia, unspecified type Expected: 04/05/2024, Expires: 07/05/2024 [facility] Comment on above: Expected: 04/05/2024, Expires: 4 Start: 03-26-2024 End: 03-26-2024 Patient encounter procedure 03/26/2024 4:40 PM EDT Office Visit [facility] [address] [place] [address] Guanakito Reno MD [address] [place] [address] 3 month f/u [facility] Comment on above: 3 month f/u Start: 03-26-2024 End: 06-25-2024 Basic metabolic 2000 panel - Serum or Plasma BASIC METABOLIC PANEL Lab Routine Renal insufficiency Expected: 03/26/2024, Expires: 06/25/2024 [facility] Comment on above: Expected: 03/26/2024, Expires: 4 Start: 03-26-2024 End: 03-26-2025 CBC W Auto Differential panel - Blood COMPLETE BLOOD COUNT AND DIFFERENTIAL Lab Routine Anemia, unspecified type Expected: 03/26/2024, Expires: 03/26/2025 [facility] Comment on above: Expected: 03/26/2024, Expires: Start: 03-26-2024 End: 03-26-2025 Cobalamin (Vitamin B12) [Mass/volume] in Serum or Plasma VITAMIN B12 Lab Routine Anemia, unspecified type Expected: 03/26/2024, Expires: 03/26/2025 [facility] Comment on above: Expected: 03/26/2024, Expires: Start: 03-26-2024 End: 03-26-2025 Ferritin [Mass/volume] in Serum or Plasma FERRITIN Lab Routine Anemia, unspecified type Expected: 03/26/2024, Expires: 03/26/2025 [facility] Comment on above: Expected: 03/26/2024, Expires: Start: 03-26-2024 End: 03-26-2025 Folate [Mass/volume] in Serum or Plasma FOLATE, SERUM Lab Routine Anemia, unspecified type Expected: 03/26/2024, Expires: 03/26/2025 [facility] Comment on above: Expected: 03/26/2024, Expires: Start: 03-26-2024 End: 06-25-2024 Hemoglobin A1c in Blood HEMOGLOBIN A1C Lab Routine Type 2 diabetes mellitus with stage 3 chronic kidney disease, without long-term current use of insulin, unspecified whether stage 3a or 3b CKD (HCC) Expected: 03/26/2024, Expires: 06/25/2024 [facility] Comment on above: Expected: 03/26/2024, Expires: 4 Start: 03-26-2024 End: 03-26-2025 Hemoglobin.gastrointestin al.lower [Presence] in Stool by Immunoassay IMMUNOCHEMICAL FECAL OCCULT BLOOD TEST Lab Routine Anemia, unspecified type Expected: 03/26/2024, Expires: 03/26/2025 [facility] Comment on above: Expected: 03/26/2024, Expires: Start: 03-26-2024 End: 03-26-2025 Iron and Iron binding capacity panel - Serum or Plasma IRON AND TIBC Lab Routine Anemia, unspecified type Expected: 03/26/2024, Expires: 03/26/2025 [facility] Comment on above: Expected: 03/26/2024, Expires: Start: 03-25-2024 End: 03-25-2024 Patient encounter procedure 03/25/2024 2:40 PM EDT Office Visit Cardiology [address] [place] [id number] Pam Reddy MD [address] [facility], [address] [place] [address] 1 yr f/u Cardiology Comment on above: 1 yr f/u Start: 02-14-2024 BP CONTROLLED (<130/80) BP CONTROLLED (<130/80) [place] Start: 02-13-2024 Hemoglobin A1c measurement HbA1C [facility] Start: 02-13-2024 Hemoglobin A1c/Hemoglobin.total in Blood HbA1C [facility] Start: 02-07-2024 3 comp foot exam completed DIABETIC FOOT EXAM [facility] Start: 02-07-2024 ANNUAL PCP TEAM CHRONIC DISEASE VISIT ANNUAL PCP TEAM CHRONIC DISEASE VISIT [facility] Start: 02-07-2024 BP CONTROLLED (<130/80) BP CONTROLLED (<130/80) [place] Start: 02-07-2024 SHINGRIX VACCINE (1 of 2) SHINGRIX VACCINE (1 of 2) [facility] Comment on above: Postponed from 1993 (Insurance Cov erage) Start: 12-14-2023 Covid-19 Vaccine () Covid-19 Vaccine () [facility] Start: 10-16-2023 Advance Directive Discussion Advance Directive Discussion [facility] Start: 10-04-2023 BP CONTROLLED (<130/80) BP CONTROLLED (<130/80) [place] Start: 08-15-2023 End: 08-15-2024 Basic metabolic 2000 panel - Serum or Plasma BASIC METABOLIC PNL Lab Routine Renal insufficiency Expected: 08/15/2023, Expires: 08/15/2024 [facility] Work Phone: Comment on above: Expected: 08/15/2023, Expires: 4 Start: 08-15-2023 BP CONTROLLED (<130/80) BP CONTROLLED (<130/80) [place] Start: 08-15-2023 End: 11-14-2023 Urinalysis complete panel - Urine URINALYSIS, WITH MICROSCOPIC Lab Routine Renal insufficiency Expected: 08/15/2023, Expires: 11/14/2023 [facility] Work Phone: Comment on above: Expected: 08/15/2023, Expires: 4 Start: 06-16-2023 Covid-19 Vaccine () Covid-19 Vaccine () [facility] Start: 06-16-2023 Influenza vaccination [facility] Start: 06-08-2023 COVID-19 VACCINE (5 - Moderna series) COVID-19 VACCINE (5 - Moderna series) [facility] Start: 03-29-2023 BP CONTROLLED (<130/80) BP CONTROLLED (<130/80) [place] Start: 02-20-2023 End: 02-14-2024 Echocardiography ECHO Cardiology Routine Syncope, unspecified syncope type Aortic valve disorder Expected: 02/20/2023, Expires: 02/14/2024 [facility] Work Phone: Comment on above: Expected: 02/20/2023, Expires: 4 Start: 02-06-2023 End: 04-08-2023 ALBUMIN/CREAT RATIO RND UR ALBUMIN/CREAT RATIO RND UR Lab Routine Type 2 diabetes mellitus with stage 3 chronic kidney disease, without long-term current use of insulin, unspecified whether stage 3a or 3b CKD (HCC) Expected: 02/06/2023, Expires: 04/08/2023 [facility] Work Phone: Comment on above: Expected: 02/06/2023, Expires: 3 Start: 02-06-2023 End: 04-08-2023 CBC W Auto Differential panel - Blood CBC + DIFF Lab Routine Type 2 diabetes mellitus with stage 3 chronic kidney disease, without long-term current use of insulin, unspecified whether stage 3a or 3b CKD (HCC) Expected: 02/06/2023, Expires: 04/08/2023 [facility] Work Phone: Comment on above: Expected: 02/06/2023, Expires: Start: 02-06-2023 End: 04-08-2023 Comprehensive metabolic 2000 panel - Serum or Plasma COMP METABOLIC PANEL Lab Routine Type 2 diabetes mellitus with stage 3 chronic kidney disease, without long-term current use of insulin, unspecified whether stage 3a or 3b CKD (HCC) Expected: 02/06/2023, Expires: 04/08/2023 [facility] Work Phone: Comment on above: Expected: 02/06/2023, Expires: Start: 02-06-2023 End: 04-08-2023 Hemoglobin A1c in Blood HGB A1C Lab Routine Type 2 diabetes mellitus with stage 3 chronic kidney disease, without long-term current use of insulin, unspecified whether stage 3a or 3b CKD (HCC) Expected: 02/06/2023, Expires: 04/08/2023 [facility] Work Phone: Comment on above: Expected: 02/06/2023, Expires: 3 Start: 02-06-2023 End: 04-08-2023 Lipid 1996 panel - Serum or Plasma LIPID PANEL BASIC Lab Routine Type 2 diabetes mellitus with stage 3 chronic kidney disease, without long-term current use of insulin, unspecified whether stage 3a or 3b CKD (HCC) Expected: 02/06/2023, Expires: 04/08/2023 [facility] Work Phone: Comment on above: Expected: 02/06/2023, Expires: 3 Start: 01-19-2023 ANNUAL PCP TEAM CHRONIC DISEASE VISIT ANNUAL PCP TEAM CHRONIC DISEASE VISIT [facility] Start: 01-19-2023 BP CONTROLLED (<130/80) BP CONTROLLED (<130/80) [place] Start: 01-18-2023 HEMOGLOBIN/HEMATOCRIT HEMOGLOBIN/HEMATOCRIT [facility] Start: 04-05-2023 Hepatitis B screening URINE ALBUMIN:CREATININE RATIO [facility] Start: 01-18-2023 SERUM CREATININE SERUM CREATININE [facility] Start: 12-21-2022 Hepatitis B surface antibody level LDL CHOLESTEROL [facility] Start: 10-16-2022 ADVANCE DIRECTIVE DISCUSSION ADVANCE DIRECTIVE DISCUSSION [facility] Start: 08-22-2022 End: 08-15-2023 Echocardiography ECHO Cardiology Routine Nonrheumatic aortic valve stenosis Expected: 08/22/2022, Expires: 08/15/2023 [facility] Work Phone: Comment on above: Expected: 08/22/2022, Expires: 3 Start: 07-20-2022 Hemoglobin A1c/Hemoglobin.total in Blood HBA1C [facility] Start: 06-16-2022 Influenza vaccination [facility] Start: 04-12-2022 COVID-19 VACCINE (4 - Booster for Moderna series) COVID-19 VACCINE (4 - Booster for Moderna series) [facility] Start: 02-18-2022 End: 04-20-2022 Basic metabolic 2000 panel - Serum or Plasma BASIC METABOLIC PNL Lab Routine Essential hypertension with goal blood pressure less than 140/90 Expected: 02/18/2022, Expires: 04/20/2022 [facility] Work Phone: Comment on above: Expected: 02/18/2022, Expires: 2 Start: 02-07-2022 COVID-19 VACCINE (4 - Booster for Moderna series) COVID-19 VACCINE (4 - Booster for Moderna series) [facility] Start: 10-16-2021 ADVANCE DIRECTIVE DISCUSSION ADVANCE DIRECTIVE DISCUSSION [facility] Start: 01-18-2020 3 comp foot exam completed DIABETIC FOOT EXAM [facility] Start: 12-05-2019 Glaucoma screening Dilated Retinal Exam [facility] Start: 12-05-2019 Hepatitis C antibody, confirmatory test DILATED RETINAL EXAM [facility] Start: 2018 RSV Vaccine (1 - 1-dose 75+ series) RSV Vaccine (1 - 1-dose 75+ series) [facility] Start: 2003 Hepatitis B Vaccine (1 of 3 - Risk 3-dose series) Hepatitis B Vaccine (1 of 3 - Risk 3-dose series) [facility] Start: 1993 SHINGRIX VACCINE (1 of 2) SHINGRIX VACCINE (1 of 2) [facility] Start: 1961 BP Controlled (<130/80) BP Controlled (<130/80) [facility] in Start: 1961 HEPATITIS C SCREENING HEPATITIS C SCREENING [facility] Start: 1949 PNEUMOCOCCAL: 65+ (1 - PCV) PNEUMOCOCCAL: 65+ (1 - PCV) [facility] End: 08-09-2025 CTA Abdominal vessels and Pelvis vessels W contrast IV CTA ABD/PEL W IVCON Radiology Routine Nonrheumatic aortic valve stenosis Encounter for preprocedural cardiovascular examination 1 Occurrences starting 07/10/2024 until 08/09/2025 [facility] Work Phone: Comment on above: 1 Occurrences starting 07/10/2024 until 08/09/2025 End: 07-23-2024 CTA Abdominal vessels and Pelvis vessels W contrast IV [facility] Work Phone: Comment on above: 1 Occurrences starting 07/23/2024 until 07/23/2024 End: 08-09-2025 CTA Chest vessels WO and W contrast IV CTA CHEST (GATED) WO/W IVCON Radiology Routine Nonrheumatic aortic valve stenosis Encounter for preprocedural cardiovascular examination 1 Occurrences starting 07/10/2024 until 08/09/2025 [facility] Comment on above: 1 Occurrences starting 07/10/2024 until 08/09/2025 End: 07-23-2024 CTA Chest vessels WO and W contrast IV [facility] Comment on above: 1 Occurrences starting 07/23/2024 until 07/23/2024 ECG COMPLETE ECG COMPLETE ECG Routine Syncope, unspecified syncope type Aortic valve disorder Paroxysmal atrial fibrillation (HCC) Ordered: 03/21/2024 [facility] Work Phone: Comment on above: Ordered: 03/21/2024 End: 07-10-2025 EXTENDED WEAR SPECIALTY SALES REPRESENTATIVE PATCH EXTENDED WEAR SPECIALTY SALES REPRESENTATIVE PATCH ECG Routine Nonrheumatic aortic valve stenosis 1 Occurrences starting 07/10/2024 until 07/10/2025 [facility] Comment on above: 1 Occurrences starting 07/10/2024 until 07/10/2025 End: 07-10-2024 EXTENDED WEAR SPECIALTY SALES REPRESENTATIVE PATCH EXTENDED WEAR SPECIALTY SALES REPRESENTATIVE PATCH ECG Routine Nonrheumatic aortic valve stenosis 1 Occurrences starting 07/10/2024 until 07/10/2024 [facility] Work Phone: Comment on above: 1 Occurrences starting 07/10/2024 until 07/10/2024 Hemoglobin.tony velez al.lower [Presence] in Stool by Immunoassay IMMUNOCHEMICAL FECAL OCCULT BLOOD TEST Lab Routine CKD (chronic kidney disease) stage 4, 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/min ([facility]) Anemia, unspecified type Ordered: 04/05/2024 [facility] Work Phone: Comment on above: Ordered: 04/05/2024 Hemoglobin.tony velez al.lower [Presence] in Stool by Immunoassay IMMUNOCHEMICAL FECAL OCCULT BLOOD TEST Lab Routine Screen for colon cancer Ordered: 2024 [facility] Work Phone: Comment on above: Ordered: 2024 OUTSIDE VENDOR CARDI AC OUTPATIENT EXTENDED RHYTHM RECORDING (WITHOUT TELEMETRY) OUTSIDE VENDOR CARDIAC OUTPATIENT EXTENDED RHYTHM RECORDING (WITHOUT TELEMETRY) Holter Routine Syncope, unspecified syncope type Ordered: 02/13/2023 [facility] Work Phone: Comment on above: Ordered: 02/13/2023 Removal impacted cer umen irrigation/lvg unilat AMBULATORY EAR LAVAGE/IRRIGATION Procedures Routine Bilateral impacted cerumen Ordered: 01/21/2025 [facility] Comment on above: Ordered: 01/21/2025 End: 03-26-2025 US Carotid arteries - bilateral US CAROTID ARTERIES GRAY [facility] LAB Vascular Lab Routine History of carotid endarterectomy 1 Occurrences starting 03/26/2024 until 03/26/2025 [facility] Work Phone: Comment on above: 1 Occurrences starting 03/26/2024 until 03/26/2025 End: 03-16-2023 US CAROTID ARTERIES GRAY VAS LAB US CAROTID ARTERIES GRAY VAS LAB Vascular Lab Routine Bilateral carotid artery stenosis 1 Occurrences starting 03/18/2022 until 03/16/2023 [facility] Work Phone: Comment on above: 1 Occurrences starting 03/18/2022 until 03/16/2023 End: 10-04-2023 US CAROTID ARTERIES GRAY VAS LAB US CAROTID ARTERIES GRAY VAS LAB Vascular Lab Routine Bilateral carotid artery stenosis 1 Occurrences starting 10/04/2022 until 10/04/2023 [facility] Work Phone: Comment on above: 1 Occurrences starting 10/04/2022 until 10/04/2023 End: 04-25-2025 US Kidney - bilateral and Urinary bladder US KIDNEY/BLADDER Radiology Routine Renal insufficiency 1 Occurrences starting 03/26/2024 until 04/25/2025 [facility] Comment on above: 1 Occurrences starting 03/26/2024 until 04/25/2025 [facility] [place] Immunizations Immunization Date Immunization Notes Care Provider [facility] 07-12-2024 COVID-19 vaccine, ag e 12+ yr ([employer]iqu[employer] COMIRNATY) Guanakito Reno MD Work Phone: [facility] 07-12-2024 influenza, high dose seasonal, preservative-free Guanakito Reno MD Work Phone: [facility] 07-12-2024 influenza virus vacc ine, unspecified formulation Guanakito Reno MD Work Phone: [facility] 08-14-2023 COVID-19 vaccine, ag e 12+ yr, season ([employer]itness[employer]TECH) Guanakito Reno MD Work Phone: [facility] 08-14-2023 influenza (HD-IIV4) vaccine, age 65+ yr, high dose, quadrivalent, PF (FLUZONE HIGH-DOSE) Guanakito Reno MD Work Phone: [facility] 08-14-2023 influenza virus vacc ine, unspecified formulation Ruthie [facility] 02-06-2023 COVID-19 vaccine, ag e 12+ yr, bivalent (PublicfastBIONTECH) Guanakito Reno MD Work Phone: [facility] 12-13-2021 COVID-19 vaccine, ag e 12+ yr (PFIZER-BIONTECH - YANES TOP) Guanakito Reno MD Work Phone: [facility] 04-22-2021 tetanus and diphther ia toxoids, adsorbed, preservative free, for adult use (5 Lf of tetanus toxoid and 2 Lf of diphtheria toxoid) Guanakito Reno MD Work Phone: [facility] 02-16-2021 COVID-19 vaccine, fu ll dose (MODERNA) Guanakito Reno MD Work Phone: [facility] Work Phone: 01-19-2021 COVID-19 vaccine, fu ll dose (MODERNA) Guanakito Reno MD Work Phone: [facility] Work Phone: 07-18-2019 influenza, high dose seasonal, preservative-free Guanakito Reno MD Work Phone: [facility] Work Phone: 07-18-2019 influenza virus vacc ine, unspecified formulation Lizette Cardenas RN [facility] 09-15-2017 influenza, high dose seasonal, preservative-free Guanakito Reno MD Work Phone: [facility] 08-11-2016 influenza, high dose seasonal, preservative-free Guanakito Reno MD Work Phone: [facility] 08-11-2016 pneumococcal polysaccharide vaccine, 23 valent Guanakito Reno MD Work Phone: [facility] 08-10-2015 influenza, high dose seasonal, preservative-free Guanakito Reno MD Work Phone: [facility] 04-09-2015 pneumococcal conjuga te vaccine, 13 valent Guanakito Reno MD Work Phone: [facility] 10-21-2013 influenza virus vacc ine, unspecified formulation Guanakito Reno MD Work Phone: [facility] 08-08-2012 influenza virus vacc ine, unspecified formulation Guanakito Reno MD Work Phone: [facility] Work Phone: 10-12-2005 pneumococcal polysaccharide vaccine, 23 valent Guanakito Reno MD Work Phone: [facility] Work Phone: 12-02-2003 diphtheria and tetan us toxoids, adsorbed for pediatric use Guanakito Reno MD Work Phone: [facility] Work Phone: Payers Date Payer Category Payer Self-pay 2025 Unknown [id number] 2019 Medicare UHC AARP MEDICAR E UHC AARP MEDICARE HMO [id number] 2019-Present [phone] [address] [address] [place] [address] [employer] [id number] 2019 Medicare UHC AAR MEDICAR E UHC AARP MEDICARE HMO [id number] 2019-Present [phone] [address] [address] [place] [address] O [id number] 2019 Medicare (Managed Care) UHC AARP MEDICARE HMO [id number] 2019 Medicare [id number] 2009 Unknown [id number] 2008 Medicare [id number] Medicare [id number] Unknown [id number] 2.16.840.1.460956.3.579.2. 462 Unknown [id number] 2.16.840.1.583249.3.579.2. 462 Unknown [id number] 2.16.840.1.051743.3.579.2. 462 Unknown [id number] 2.16.840.1.399523.3.579.2. 462 Unknown [id number] 2.16.840.1.817428.3.579.2. 462 Unknown [id number] 2.840.1.233739.3.579.2. 462 Unknown [id number] 2.840.1.744950.3.579.2. 462 Unknown [id number] 2.840.1.787251.3.579.2. 462 Unknown [id number] 2.840.1.813593.3.579.2. 462 Unknown [id number] 2.840.1.014854.3.579.2. 462 Unknown [id number] 2.840.1.738708.3.579.2. 462 Unknown [id number] 2.840.1.756804.3.579.2. 462 Unknown [id number] 2.840.1.976207.3.579.2. 462 Unknown [id number] 2.840.1.022006.3.579.2. 462 Unknown [id number] 2.840.1.710598.3.579.2. 462 Unknown [id number] 2.840.1.426425.3.579.2. 462 Unknown [id number] 2.840.1.758630.3.579.2. 462 Unknown [id number] 2.840.1.385071.3.579.2. 462 Unknown [id number] 2.840.1.388561.3.579.2. 462 Unknown [id number] 2.840.1.789090.3.579.2. 462 Unknown [id number] 2.16.840.1.344796.3.579.2. 462 Unknown [id number] 2.16840.1.265214.3.579.2. 462 Unknown [id number] 2.16.840.1.686042.3.579.2. 462 Unknown [id number] 2.16840.1.101570.3.579.2. 462 Unknown [id number] 2.16840.1.629483.3.579.2. 462 Social History Date Type Detail Facility Start: 08-10-2015 End: 03-06-2025 Tobacco smoking status NHIS Ex-smoker [facility] Start: 12-05-1975 End: 12-05-1985 History of tobacco use Current smoker [facility] Start: 12-05-1975 End: 12-05-1985 History of tobacco use Cigarette Smoker [facility] Start: 01-19-2022 End: 03-06-2025 Alcohol intake Current non-drinker of alcohol (finding) [facility] Start: 10-26-2020 History SDOH Alcohol Frequency 1 [facility] Start: 10-26-2020 History SDOH Alcohol Std Drinks 98 [facility] Start: 05-15-2019 History SDOH Alcohol Comment none now; social in past [facility] Start: 10-26-2020 History SDOH Social Connections Get Together 2 [facility] Start: 10-26-2020 History SDOH Social Connections Living 4 [facility] Start: 10-26-2020 History SDOH Physica l Activity DPW 0 [facility] Start: 10-26-2020 History SDOH Financial 5 [facility] Start: 10-26-2020 Education 14 [facility] Start: 1945 Sex Assigned At Not on file [facility] Start: 01-09-2022 End: 08-15-2022 Exposure to SARS-CoV-2 (event) Not sure [facility] Start: 03-22-2022 End: 04-01-2022 Exposure to SARS-CoV-2 (event) Unable to assess [facility] Work Phone: Start: 08-10-2015 End: 04-11-2023 Cigarettes smoked current (pack per day) - Reported 2 [facility] Start: 08-10-2015 End: 06-05-2024 Tobacco use and exposure Smokeless tobacco non-user [facility] Start: 10-26-2020 End: 04-11-2023 Social connection and isolation panel [facility] Do you belong to any clubs or organizations such as mandaen groups, unions, fraternal or athletic groups, or school groups? No [facility] Are you now , , , , never or living with a partner? [facility] How often to you hav e a drink containing alcohol? Never [facility] How many standard dr inks containing alcohol do you have on a typical day? Patient refused [facility] Do you feel stress - tense, restless, nervous, or anxious, or unable to sleep at night because your mind is troubled all the time - these days [OSQ] Only a little [facility] (I/We) worried vannesa er (my/our) food would run out before (I/we) got money to buy more. Never true [facility] Start: 1945 Sex Assigned At Male [facility] Medical Equipment Procedure Code Equipment Code Equipment Origin al Text Equipment Identifier Dates [id number], [id number] Start: 11-11-2011 Comment on above: Test blood sugar(s) one times daily. Dx: 250.00. Insulin: No Test blood sugar(s) one time daily. Dx: 250.00. Insulin: No Goals Date Patient Goal Desired Activity /State Personal health goal Functional Status Date Assessment Result Facility 04-09-2015 Are you deaf, or do you have serious difficulty hearing No 04/09/2015 11:20 AM Stephany Welch MA No [facility] 04-09-2015 Are you blind, or do you have serious difficulty seeing, even when wearing glasses No 04/09/2015 11:20 AM Stephany Welch MA No [facility] 04-09-2015 Do you have serious difficulty walking or climbing stairs No 04/09/2015 11:20 AM Stephany Welch MA No [facility] 04-09-2015 Do you have difficul ty dressing or bathing No 04/09/2015 11:20 AM Stephany Welch MA No [facility] 04-09-2015 Because of a physica l, mental, or emotional condition, do you have difficulty doing errands alone such as visiting a physician's office or shopping No 04/09/2015 11:20 AM EDT Stephany Graves MA No [facility] Mental Status Date Assessment Result Facility 04-09-2015 Because of a physica l, mental, or emotional condition, do you have serious difficulty concentrating, remembering, or making decisions No 04/09/2015 11:20 AM EDT Stephany Graves MA No [facility] Clinical Notes 03-29-2011 to 04-15-2025 Telephone Encounter - Twin Cole [facility] - 04/15/2025 9:09 AM EDTTelephone Encounter - Twin Cole [facility] - 04/15/2025 9:09 AM EDTTelephone Encounter - Leidy Malone RN - 04/14/2025 3:18 PM EDT Note Date & Type Note Facility 04-15-2025 Telephone encount er Note [facility] Anticoagulation Episode Summary Anticoagulation Care Providers Provider Role Specialty Phone number Guanakito Reno MD [facility] [phone] Cal Mitchell is a 79 year old [...] Pharmacy Anticoagulation Clinic [facility] Pager: [phone]. [facility] 04-15-2025 Miscellaneous Notes Formattin g of this note is different from the original. [facility] Anticoagulation Episode Summary Anticoagulation Care Providers Provider Role Specialty Phone number Guanakito Reno MD [facility] Medicine [phone] Cal Mitchell is a 79 year old [...] Pharmacy Anticoagulation Clinic [facility] Pager: [phone]. documented in this encounter [facility] 04-14-2025 Telephone encount er Note Gustavo calls back and notified of provider recommendation below. Voices understanding. Leidy Malone RN [facility] 04-14-2025 Miscellaneous Notes Formattin g of this [...] him? Please advise documented in this encounter [facility] 04-14-2025 Telephone encount er Note Phoned Gustavo left message to return call and ask to speak to a nurse. [facility] 04-14-2025 Telephone encount er Note yes [facility] 04-14-2025 Telephone encount er Note Patient son in law Chen calling he has been giving the patient Tylenol 500 mg two tablets twice daily since his fracture right shoulder at almost the end of February. He is asking if it is alright that they are still giving it to him? Please advise [facility] 04-08-2025 Telephone encount er Note The following approved medication requests have been transmitted electronically. Requested Prescriptions Pending Prescriptions Disp Refills warfarin (COUMADIN) 5 mg tablet 90 tablet 3 Sig: Take 1 tablet by mouth once daily. warfarin (COUMADIN) 5 mg tablet 30 tablet 0 Sig: Take 1 tablet by mouth once daily. Carolina Landeros APRN.CNP [facility] 04-08-2025 Miscellaneous Notes Formattin g of this [...] 2025 2:33 PM documented in this encounter [facility] 04-08-2025 Telephone encount er Note Prescription Refill [...] Meyer LPN April 08, 2025 2:38 PM [facility] 04-08-2025 Miscellaneous Notes Formattin g of this [...] 2025 2:38 PM documented in this encounter [facility] 04-08-2025 Telephone encount er Note Prescription Refill [...] Meyer LPN April 08, 2025 2:33 PM [facility] 04-08-2025 Evaluation note Diagnosis Hypertensive kidney disease with stage 3 chronic kidney disease, unspecified whether stage 3a or 3b CKD (HCC) Type 2 diabetes mellitus with stage 3 chronic kidney disease, without long-term current use of insulin, unspecified whether stage 3a or 3b CKD (HCC) Chronic renal disease, stage IV (HCC) Chronic kidney disease, Stage IV (severe) documented in this encounter [facility]06-13-2025 Telephone encounter Note* Telephone Encounter - Niels Rodriges RN - 03/28/2025 1:04 PM EDT Faxed recent ov notes to [facility] per daughter, January request. . January reports she talked to [facility] about patient going to live there and [facility] instructed her to have pcp office send an H & P to them for review. [facility]06-13-2025 Miscellaneous Notes* Telephone Encounter - Niels Rodriges RN - 03/28/2025 1:04 PM EDT Faxed recent ov notes to [facility] per daughter, January request. . January reports she talked to [facility] about patient going to live there and [facility] instructed her to have pcp office send an H & P to them for review. documented in this encounterOhiohealth06-09-2025 Telephone encounter Note * Telephone Encounter - Alejandro Molina RPh - 03/24/2025 10:57 AM EDT [facility] Clinic Anticoagulation Episode Summary Anticoagulation Care Providers Provider Role Specialty Phone number Guanakito Reno MD [facility] [phone] Cal Mitchell is a 79 year old [...] instructed to call [facility] at [phone] with any questionsor concerns. Alejandro Molina RPh Clinical Pharmacist, Pharmacy Anticoagulation Clinic [facility] Pager: [phone] [facility]06-09-2025 Miscellaneous Notes* Telephone Encounter - Alejandro Molina RPh - 03/24/2025 10:57 AM EDT [facility] Antico[facility] Clinic Anticoagulation Episode Summary Anticoagulation Care Providers Provider Role Specialty Phone number Guanakito Reno MD [facility] [phone] Cal Mitchell is a 79 year old [...] instructed to call [facility] at [phone] with any questionsor concerns. Alejandro Molina RPh Clinical Pharmacist, Pharmacy Anticoagulation Clinic [facility] Pager: [phone] documented in this encounterOhiohealth05-23-2025 Evaluation note* Diagnosis Onset Date Resolution Status Admit Date Closed fracture of right pro ximal humerus acute March 07, 2025 1 2:49pm [facility] Work Phone: [phone] Evaluation note* Diagnosis Onset Date Resolution Status Admit Date Closed fracture of right proximal humerus acute March 07, 2025 12:49pm Closed fracture of right proximal humerus acute May 02, 2025 10:11am [facility] Work Phone: [phone] NoteHNO ID: [id number] Author: CAROLINA LANDEROS APRN.KOURTNEY Service: ? Author [...] and 9-10/10 with movement. - Currently taking [place] for pain management. - Denies pain elsewhere [...] 250.00. Insulin: No Lancets (ONE TOUCH DELICA) [facility] lancets Test blood sugar(s) one time daily. [...] in a sl (more content not included)... [facility]05-08-2025 Telephone encounter Note* Telephone Encounter - Jimmy Carrizales, [facility] - 02/20/2025 8:59 AM EDT [facility] Anticoagulation Episode Summary Anticoagulation Care Providers Provider Role Specialty Phone number Guanakito Reno MD [facility] [phone] Cal Mitchell is a 79 year old [...] ALLERGIES No Known Allergies Indication for Warfarin: terminologist (current) use of anticoagulants Paroxysmal atrial fibrillation [...] Pharmacy Anticoagulation Clinic Pharmacy An[facility] Clinic Pager: [phone]. [facility]05-08-2025 Miscellaneous Notes* Telephone Encounter - Jimmy Carrizales RPh - 02/20/2025 8:59 AM EDT [facility] Anticoagulation Episode Summary Anticoagulation Care Providers Provider Role Specialty Phone number Guanakito Reno MD [facility] Medicine [phone] Cal Mitchell is a 79 year old [...] ALLERGIES No Known Allergies Indication for Warfarin: terminologist (current) use of anticoagulants Paroxysmal atrial fibrillation [...] Pharmacy Anticoagulation Clinic Pharmacy [facility] Pager: [phone]. documented in this encounterOhiohealth04-18-2025 Telephone encounter Note * Telephone Encounter - Kamran Ayon RPh - 01/31/2025 12:43 PM EDT [facility] Anticoagulation Episode Summary Anticoagulation Care Providers Provider Role Specialty Phone number Guanakito Reno MD [facility] [phone] Cal Mitchell is a 79 year old [...] Pharmacy Anticoagulation Clinic Pharmacy An[facility] Pager: [phone]. [facility]04-18-2025 Miscellaneous Notes* Telephone Encounter - Kamran Ayon RPh - 01/31/2025 12:43 PM EDT [facility] Anticoagulation Episode Summary Anticoagulation Care Providers Provider Role Specialty Phone number Guanakito Reno MD [facility] Medicine [phone] Cal Mitchell is a 79 year old [...] ALLERGIES No Known Allergies Indication for Warfarin: terminologist (current) use of anticoagulants Paroxysmal atrial fibrillation [...] Pharmacy Anticoagulation Clinic Pharmacy An[facility] Clinic Pager: [phone]. documented in this encounterOhiohealth04-10-2025 Progress note* Result Encounter Note - Carolina [...] levels, magnesium, and B12 are all normal. [facility]04-10-2025 Miscellaneous Notes* Result Encounter Note - Carolina [...] B12 are all normal. documented in this encounterOhiohealth04-08-2025 NoteHNO ID: [id number] Author: GEOVANNA HINDS MA Service: ? Author Type: [employer]isher Type: Progress Notes Filed: 01/21/2025 17:08 Note [...] Geovanna Hinds MA January 21, 2025 5:08 [facility]04-08-2025 History of Present illness Narrative* Geovanna [...] No oropharyngeal exudate. Eyes: Comments: Conjunctiva gray. [place]ance and itchy Cardiovascular: Rate and Rhythm: Normal [...] MG TABLET - COMPREHENSIVE METABOLIC PANEL 12. terminologist (current) use of anticoagulants - ICD9: V58.61, [...] \\ Carolina Landeros APRN.CNP documented in this encounterOhiohealth04-08-2025 Note* Addendum Note - Carolina Landeros APRN.CNP - 01/21/2025 4:54 PM EDTAddended by: CAROLINA LANDEROS on: 01/21/2025 04:54 PM Modules accepted: Orders [facility]04-08-2025 Miscellaneous Notes* Addendum Note - Carolina Landeros APRN.CNP - 01/21/2025 4:54 PM EDTAddended by: CAROLINA LANDEROS on: 01/21/2025 04:54 PM Modules accepted: Orders * Addendum Note - Geovanna Hinds MA - 01/21/2025 4:33 PM EDTAddended by: GEOVANNA HINDS on: 01/21/2025 04:33 PM Modules accepted: Orders documented in this encounterOhiohealth04-08-2025 Note* Addendum Note - Geovanna Hinds MA - 01/21/2025 4:33 PM EDTAddended by: GEOVANNA HINDS on: 01/21/2025 04:33 PM Modules accepted: Orders [address]08-2025 Instructions* Patient Instructions* Carolina Landeros APRN.CNP [...] up in 6 months documented in this encounterOhiohealth04-08-2025 NoteHNO ID: [id number] Author: CAROLINA LANDEROS APRN.CNP Service: ? Author [...] taking lisinopril Monitors bp at home: Yes. [place] checks it, ok there Denies side effects: [...] pain,every 5 min x3 blood sugar diagnostic (EverwiseTOUCH ULTRA TEST) test strip Test blood sugar(s) [...] Drug use: No EXAM: (more content not included)...[facility]03-26-2025 Miscellaneous Notes* Telephone Encounter - Josselyn [...] 08, 2025 2:53 PM documented in this encounterOhiohealth03-26-2025 Telephone encounter Note * Telephone Encounter - [...] Barrow LPN January 08, 2025 2:53 PM [facility]03-26-2025 Telephone encounter Note* Telephone Encounter - Ruthie Cuevas RPh - 01/08/2025 8:51 AM EDT [facility] Anticoagulation Episode Summary Anticoagulation Care Providers Provider Role Specialty Phone number Guanakito Reno MD [facility] [phone] Cal Mitchell is a 79 year old [...] doses of warfarin. Ruthie Cuevas [facility] Clinical Pharmacist, Pharmacy Anticoagulation Clinic Pharmacy An[facility] Pager: [phone]. [facility]03-26-2025 Miscellaneous Notes* Telephone Encounter - Ruthie Cuevas RPh - 01/08/2025 8:51 AM EDT [facility] Anticoagulation Episode Summary Anticoagulation Care Providers Provider Role Specialty Phone number Guanakito Reno MD [facility] [phone] Cal Mitchell is a 79 year old [...] Pharmacy Anticoagulation Clinic Pharmacy Anticoagulation Clinic Pager: [phone]. documented in this encounterOhiohealth03-26-2025 Evaluation note* Diagnosis Hypertensive kidney disease with stage 3 chronic kidney disease, unspecified whether stage 3a or 3b CKD (HCC) documented in this encounter [facility]03-17-2025 Telephone encounter Note* Telephone Encounter - Octavio (Scalable Display TechnologiesRuben Granados - 12/30/2024 9:15 AM EDT Roscoe'larry called regarding INR result for patient. Result has been addressed below, no further action needed. Ruben Cunningham Broomcorn Grader (Ubaldo) Pharmacy Anticoagulation Clinic [facility]03-17-2025 Miscellaneous Notes* Telephone Encounter - Octavio JansenGarden Implement MechanicRuben Granados - 12/30/2024 9:15 AM EDT De called regarding INR result for patient. Result has been addressed below, no further action needed. Ruben Cunningham Broomcorn Grader (v belt builder) Pharmacy Anticoagulation Clinic * Telephone Encounter - Twin Cole RPh - 12/30/2024 9:12 AM EDT [facility] Anticoagulation Episode Summary Anticoagulation Care Providers Provider Role Specialty Phone number Guanakito Reno MD [facility] [phone] Cal Mitchell is a 79 year old [...] Pharmacy Anticoagulation Clinic Pharmacy Anticoagulation Clinic Pager: [phone]. documented in this encounterOhiohealth03-17-2025 Telephone encounter Note * Telephone Encounter - Twin Cole RPh - 12/30/2024 9:12 AM EDT [facility] Anticoagulation Episode Summary Anticoagulation Care Providers Provider Role Specialty Phone number Guanakito Reno MD [facility] [phone] Cal Mitchell is a 79 year old [...] doses of warfarin. Twin Cole [facility] Clinical Pharmacist, Pharmacy Anticoagulation Clinic Pharmacy An[facility] Pager: [phone]. [facility]02-26-2025 Telephone encounter Note* Telephone Encounter - Jimmy Carrizales [facility] - 12/11/2024 9:43 AM EST [facility] Anticoagulation Episode Summary Anticoagulation Care Providers Provider Role Specialty Phone number Guanakito Reno MD [facility] Medicine [phone] Cal Mitchell is a 79 year old [...] ALLERGIES No Known Allergies Indication for Warfarin: terminologist (current) use of anticoagulants Paroxysmal atrial fibrillation [...] Pharmacy Anticoagulation Clinic Pharmacy An[facility] Pager: [phone]. [facility]02-26-2025 Miscellaneous Notes* Telephone Encounter - Jimmy Carrizales RPh - 12/11/2024 9:43 AM EST [facility] Anticoagulation Episode Summary Anticoagulation Care Providers Provider Role Specialty Phone number Guanakito Reno MD [facility] [phone] Cal Mitchell is a 79 year old [...] doses of warfarin. Jimmy Carrizales [facility] Clinical Pharmacist, Pharmacy Anticoagulation Clinic Pharmacy Anticoagulation Clinic Pager: [phone]. documented in this encounterOhiohealth02-11-2025 Telephone encounter Note * Telephone Encounter - Twin Cole [facility] - 11/26/2024 5:26 PM EST [facility] Anticoagulation Episode Summary Anticoagulation Care Providers Provider Role Specialty Phone number Guanakito Reno MD [facility] [phone] Cal Mitchell is a 79 year old [...] Pharmacy Anticoagulation Clinic Pharmacy An[facility] Pager: [phone]. [facility]02-11-2025 Miscellaneous Notes* Telephone Encounter - Twin Cole RPh - 11/26/2024 5:26 PM EST [facility] Anticoagulation Episode Summary Anticoagulation Care Providers Provider Role Specialty Phone number Guanakito Reno MD [facility] Medicine [phone] Cal Mitchell is a 79 year old [...] Pharmacy Anticoagulation Clinic Pharmacy Anticoagulation Clinic Pager: [phone]. documented in this encounterOhiohealth01-13-2025 Telephone encounter Note * Telephone Encounter - Alejandro Molina RPh - 10/28/2024 5:06 PM EST [facility] Anticoagulation Episode Summary Anticoagulation Care Providers Provider Role Specialty Phone number Guanakito Reno MD [facility] [phone] Cal Mitchell is a 79 year old [...] instructed to call [facility] at [phone] with any questionsor concerns. Alejandro Molina RPh Clinical Pharmacist, Pharmacy Anticoagulation Clinic Pharmacy [facility] Pager: [phone] [facility]01-13-2025 Miscellaneous Notes* Telephone Encounter - Alejandro Molina RPh - 10/28/2024 5:06 PM EST [facility] Anticoagulation Episode Summary Anticoagulation Care Providers Provider Role Specialty Phone number Guanakito Reno MD [facility] [phone] Cal Mitchell is a 79 year old [...] instructed to call [facility] at [phone] with any questionsor concerns. Alejandro Molina RPh Clinical Pharmacist, Pharmacy Anticoagulation Clinic Pharmacy Anticoagulation Clinic Pager: [phone] documented in this encounterOhiohealth01-06-2025 Telephone encounter Note * Telephone Encounter - Ashley De Dios RN - 10/21/2024 2:58 PM EST Pt ALEC Chen called and is notified of providers message. He voices understanding. Ashley De Dios RN [facility]01-06-2025 Miscellaneous Notes* Telephone Encounter - Ashley De [...] Please call and advise. documented in this encounterOhiohealth01-06-2025 Telephone encounter Note * Telephone Encounter - Guanakito Reno MD - 10/21/2024 2:25 PM EST agree [facility]01-06-2025 Telephone encounter Note* Telephone Encounter [...] to the Pt. Ashley De Dios RN [facility]01-06-2025 Telephone encounter Note* Telephone Encounter - Guanakito Reno MD - 10/21/2024 1:55 PM EST Can try mucinex otc. Call if symptoms worsen at all or if not better in one to two weeks [facility]01-06-2025 Telephone encounter Note* Telephone Encounter [...] him for Covid. Please call and advise. [facility]12-17-2024 Telephone encounter Note* Telephone Encounter - Twin Cole [facility] - 10/01/2024 9:37 AM EST [facility] Anticoagulation Episode Summary Anticoagulation Care Providers Provider Role Specialty Phone number Guanakito Reno MD [facility] Medicine [phone] Cal Mitchell is a 79 year old [...] Pharmacy Anticoagulation Clinic Pharmacy Antico[facility] Clinic Pager: [phone]. [facility]12-17-2024 Miscellaneous Notes* Telephone Encounter - Twin Cole RPh - 10/01/2024 9:37 AM EST [facility] Anticoagulation Episode Summary Anticoagulation Care Providers Provider Role Specialty Phone number Guanakito Reno MD [facility] [phone] Cal Mitchell is a 79 year old [...] doses of warfarin. Twin Cole [facility] Clinical Pharmacist, Pharmacy Anticoagulation Clinic Pharmacy Anticoagulation Clinic Pager: [phone]. documented in this encounterOhiohealth11-11-2024 Telephone encounter Note * Telephone Encounter - Alejandro Molina RP - 08/26/2024 6:35 AM EST [facility] Anticoagulation Episode Summary Anticoagulation Care Providers Provider Role Specialty Phone number Guanakito Reno MD [facility] Medicine [phone] Cal Mitchell is a 79 year old [...] warfarin instructions: 5 mg every day Sent KFx Medical message Advised patient to continue current weekly dose as noted above Next INR check due on 09/09/2024 Alejandro Molina RPh Clinical Pharmacist, Pharmacy Anticoagulation Clinic Pharmacy An[facility] Clinic Pager: [phone]. [facility]11-11-2024 Miscellaneous Notes* Telephone Encounter - Alejandro Molina RPh - 08/26/2024 6:35 AM EST [facility] Anticoagulation Episode Summary Anticoagulation Care Providers Provider Role Specialty Phone number Guanakito Reno MD [facility] [phone] Cal Mitchell is a 79 year old [...] warfarin instructions: 5 mg every day Sent KFx Medical message Advised patient to continue current weekly dose as noted above Next INR check due on 09/09/2024 Alejandro Molina [facility] Clinical Pharmacist, Pharmacy Anticoagulation Clinic Pharmacy Anticoagulation Clinic Pager: [phone]. documented in this encounterOhiohealth11-04-2024 NoteHNO ID: [id number] Author: MELANIA GALINDO RN Service: ? Author Type: Registered Nurse Type: Progress Notes Filed: 08/19/2024 12:55 Note Text: Summary: Medication Adherence Review per Request of Payor ACNiels LUIS RN Reason for review or outreach: Medication Adherence Review Details: Cholesterol FYI/REQUESTED ACTION: Summary / Findings: Atorvastatin was due for refill on/before 08.09.24. Sent KFx Medical reminder 08.15.24- not read Called patient Patient identified by name and date of . Patient Attributed To: QAE Payer: [employer] Action Taken: Data submitted to Payer Contact made with patient: No, Left message [facility] History of Present illness Narrative* Melania Galindo RN - 08/19/2024 12:51 PM ESTSummary: Medication Adherence Review per Request of Payor ACNiels LUIS RN Reason for review or outreach: Medication Adherence Review Details: Cholesterol FYI/REQUESTED ACTION: Summary / Findings: Atorvastatin was due for refill on/before 08.09.24. Sent KFx Medical reminder 08.15.24- not read Called patient Patient identified by name and date of . Patient Attributed To: QAE Payer: [employer] Action Taken: Data submitted to Payer Contact made with patient: No, Left message BENJIE Schreiber RN documented in this encounterOhiohealth11-04-2024 NotePatient Outreach ([facility]) CAL MITCHELL ([id number]) 1945 M Date Time Provider Department 08/19/24 MELANIA GALINDO During your visit today, we recorded the following information about you: Melania Galindo RN 08/19/2024 12:55 PM Signed ACM LUIS RN Reason for review or outreach: Medication Adherence Review Details: Cholesterol FYI/REQUESTED ACTION: Summary / Findings: Atorvastatin was due for refill on/before 08.09.24. Sent KFx Medical reminder 08.15.24- not read Called patient Patient identified by name and date of . Patient Attributed To: [facility] Payer: [facility] Action Taken: Data submitted to [...] Insulin: No - Lancets (ONE TOUCH DELICA) [facility] lancets Test blood sugar(s) one time daily. 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 Cannot tell this Nurse what he is taking and not takiing at this time. Carolin Cantu LPN August 06, 2024 1:29 PM [facility]10-22-2024 Nurse Note* Carolin Cantu LPN - 08/06/2024 1:28 PM EDT Patient not a good historian of medications. Cannot tell this Nurse what he is taking and not takiing at this time. Carolin Cantu LPN August 06, 2024 1:29 PM documented in this encounterOhiohealth10-22-2024 History of Present illness Narrative* Laura Iraheta MD - 08/06/2024 1:25 PM EDT Images from the original note were not included. Heart , Vascular and Thoracic [place] DEPARTMENT OF VASCULAR SURGERY OUTPATIENT VISIT DATE [...] 250.00. Insulin: No Lancets (ONE TOUCH DELICA) [facility] lancets Test blood sugar(s) one time daily. Dx: 250.00. Insulin: No ALLERGIES: ALLERGIES No Known Allergies REVIEW OF SYSTEM: Constitutional: No weight loss, malaise or fevers. Respiratory: Negative for SOB Cardiovascular: Negative for chest pain or recent TX Gatrointestinal: Negative for abdominal discomfort Genitourinary: Negative [...] 2024 TIME: 4:41 PM documented in this encounterOhiohealth10-17-2024 Telephone encounter Note * Telephone Encounter - Josselyn Mayer APRN.CNP - 08/01/2024 9:56 AM EDT I spoke with Gustavo and communicated recommendations of medical therapy. He reports patient also expressed wanting to continue without any further intervention. Patient and family agreeable to plan. Josselyn Mayer APRN.CNP [facility]10-17-2024 Miscellaneous Notes* Telephone Encounter - Josselyn Mayer APRN.CNP - 08/01/2024 9:56 AM EDT I spoke with Gustavo and communicated recommendations of medical therapy. He reports patient also expressed wanting to continue without any further intervention. Patient and family agreeable to plan. Josselyn Mayer APRN.CNP * Telephone Encounter - Chely Nicolas RN - 07/31/2024 3:53 PM EDT Gustavo calls requesting a return call at [phone]. Chely Nicolas RN * Telephone Encounter - Josselyn Mayer APRN.CNP - 07/30/2024 10:34 AM EDT Attempted to contact patient and his family to update him on the treatment plan. Left voicemail requesting phone call back. Josselyn Mayer APRN.CNP documented in this encounterOhiohealth10-16-2024 Telephone encounter Note * Telephone Encounter - Chely Nicolas RN - 07/31/2024 3:53 PM EDT Gustavo calls requesting a return call at [phone]. Chely Nicolas RN [facility]10-15-2024 History of Present illness Narrative* Josselyn Mayer [...] Josselyn Mayer APRN.CNP 07/30/2024 documented in this encounterOhiohealth10-15-2024 Telephone encounter Note * Telephone Encounter - Josselyn Mayer APRN.CNP - 07/30/2024 10:34 AM EDT Attempted to contact patient and his family to update him on the treatment plan. Left voicemail requesting phone call back. Josselyn Mayer APRN.CNP [facility]10-11-2024 Telephone encounter Note* Telephone Encounter - Kamran [...] to test INR. Kamran Ayon PharmD, BCPS [facility]10-11-2024 Miscellaneous Notes* Telephone Encounter - Kamran Ayon [...] well asking patient to test INR. Kamran yAon PharmD, BCPS * Telephone Encounter - Jimmy Carrizales [facility] - 07/25/2024 11:45 AM EDT Left voice message asking patient at [phone] (home) or daughter January to call the Anticoagulation Clinic at [phone] re: patient recenly off warfarin for heart cath on 07/23/24. Patient was prescribed Lovenox 100 mg sq Once daily by cardiology. Next Action for Anti coag Management: TM Remote Jimmy Carrizales PharmD., CACP documented in this encounterOhiohealth10-10-2024 Telephone encounter Note * Telephone Encounter - Jimmy Carrizales RP - 07/25/2024 11:45 AM EDT Left voice message asking patient at [phone] (home) or daughter January to call the Anticoagulation Clinic at [phone] re: patient recenly off warfarin for heart cath on 07/23/24. Patient was prescribed Lovenox 100 mg sq Once daily by cardiology. Next Action for Anti coag Management: TM Remote Jimmy Carrizales PharmD., CACP [facility]10-08-2024 History of Present illness Narrative* Victoria Marks, [...] PATIENT PRESENTS WITH AN IMPLANTABLE OR ATTACHED BIT SANDER: No ALLERGIES: Reviewed and unchanged CONTRAST ALLERGY: [...] 2024 TIME: 9:13 AM documented in this encounterOhiohealth09-30-2024 Telephone encounter Note * Telephone Encounter - Josselyn Barrow LPN - 07/15/2024 3:19 PM EDT Notified Gustavo. [facility]09-30-2024 Miscellaneous Notes* Telephone Encounter - Josselyn Barrow [...] proceeding. Teresa Alexis RN documented in this encounterOhiohealth09-30-2024 Telephone encounter Note * Telephone Encounter - Magdalena Laird LPN - 07/15/2024 3:15 PM EDT Son notified of results and provider message. Magdalena Laird LPN [facility]09-30-2024 Miscellaneous Notes* Telephone Encounter - Magdalena Laird [...] does off of meds. documented in this encounterOhiohealth09-30-2024 Telephone encounter Note * Telephone Encounter - Guanakito Reno MD - 07/15/2024 2:40 PM EDT Agree. As long as he is aware. [facility]09-30-2024 Telephone encounter Note* Telephone Encounter - Teresa [...] like PCP recommendationbefore proceeding. Teresa Alexis RN [facility]09-30-2024 Telephone encounter Note* Telephone Encounter - Carolina Alba MA - 07/15/2024 2:14 PM EDT Message left for return call. Carolina Alba MA [facility]09-30-2024 Telephone encounter Note* Telephone Encounter - Guanakito Reno MD - 07/15/2024 1:04 PM EDT Kidney function and anemia are stable. See nephrology as we had recommended. Sugars are overall notbad. Hold on amaryl. Call sugars in two weeks to see how he does off of meds. [facility]09-30-2024 History of Present illness Narrative* Guanakito Reno MD - 07/15/2024 8:03 AM EDT Apparently second visit created in error. documented in this encounterOhiohealth09-27-2024 Telephone encounter Note * Telephone Encounter - Guanakito Reno MD - 07/12/2024 12:49 PM EDT Noted. Thank you [facility]09-27-2024 Miscellaneous Notes* Telephone Encounter - Guanakito Reno MD - 07/12/2024 12:49 PM EDT Noted. Thank you * Telephone Encounter - Art Estes - 07/12/2024 12:34 PM EDT Attempted to find sooner apt time for patients nephrology apt, no sooner times within [facility] facilities that are faster than [facility] [facility] documented in this encounterOhiohealth09-27-2024 Telephone encounter Note * Telephone Encounter - Art Estes - 07/12/2024 12:34 PM EDT Attempted to find sooner apt time for patients nephrology apt, no sooner times within [facility] facilities that are faster than patients [facility] [facility]09-27-2024 History of Present illness Narrative* Guanakito Reno MD - 07/12/2024 11:22 AM EDT Patient presents with: Follow Up HPI: Patient presents today for office visit for follow up. We had referred him to nephrology in March for ckd and anemia of ckd. Has stopped HCTZ. Actos. Melatonin. Still with pitting edema. Denies chest pain. No new or worsening shortness of breath. Currently wearing Yap heart monitor. Placed yesterday. Follows with Cardiology. [...] 250.00. Insulin: No Lancets (ONE TOUCH DELICA) [facility] lancets Test blood sugar(s) one time daily. [...] ICD10: G30.9, F01.50, F02.80 - stable. 10. FPC (current) use of anticoagulants - ICD9: V58.61, ICD10: Z79.01 Stable. Guanakito Reno MD documented in this encounterOhiohealth09-25-2024 History of Present illness Narrative* Pam Reddy MD - 07/10/2024 3:07 PM EDT Images from the original note were not included. Pam Reddy MD Interventional Cardiology [address] [place] [address] Chief Complaint Patient presents with: Aortic Stenosis: [...] with significant dementia. Patient follow-up at the [place] office 6 months ago he was completely [...] CTA CHEST (GATED) WO/W IVCON - CARDIAC PROFESSOR OF CRIMINAL JUSTICE ORDER - EXTENDED WEAR SPECIALTY SALES REPRESENTATIVE PATCH - COMPLETE BLOOD COUNT - BASIC [...] to correct any errors. * Josselyn Mayer, LEDGER CLERK.BINGO FLOATER - 07/10/2024 9:39 AM EDT Procedure Type: [...] 10, 2024 TIME: 8:06 AM PAGER/CONTACT #: [phone] documented in this encounterOhiohealth09-25-2024 Nurse Note* Judy Magana Lathe Tender - 07/10/2024 10:00 AM EDT Applied 14 day extended wear EKG patch. Pt verbalized understanding of monitor use / diary. [facility]09-25-2024 Nurse Note* Judy Magana Lathe Tender - 07/10/2024 10:00 AM EDT Applied 14 day extended wear EKG patch. Pt verbalized understanding of monitor use / diary. documented in this encounterOhiohealth09-25-2024 Instructions* Patient Instructions* Josselyn Mayre APRN.CNP - 07/10/2024 8:55 AM EDT Images [...] process is complete. The content on the [employer] website is not intended nor recommended as a substitute for medical advice, diagnosis, or treatment. Always seek the advice of your own physician or other qualified healthcare professional regarding any medical questions or conditions.. 2016 [employer]. All rights reserved. Topic 93794 Version 5.0 documented in this encounterOhiohealth09-25-2024 History of Present illness Narrative* Cal Mondragon MD - 07/10/2024 8:37 AM EDT PRIMARY CARE PHYSICIAN: Guanakito Reno [address] [place] [address] Subjective Chief Complaint Patient presents with: Aortic [...] 150 Strip 3 Lancets (ONE TOUCH DELICA) [facility] lancets Test blood sugar(s) one time daily. [...] also refer to vascular surgery and a hot mix operator for further evaluation. Family will discuss how [...] 10, 2024 TIME: 8:13 AM PAGER/CONTACT #: [phone] documented in this encounterOhiohealth09-20-2024 Telephone encounter Note * Telephone Encounter - Annamarie Garcia RP - 07/05/2024 9:43 AM EDT [facility] Anticoagulation Episode Summary Anticoagulation Care Providers Provider Role Specialty Phone number Guanakito Reno MD [facility] [phone] Cal Mitchell is a 79 year old [...] ALLERGIES No Known Allergies Indication for Warfarin: terminologist (current) use of anticoagulants Paroxysmal atrial fibrillation (hcc) Anticoagulation Episode Summary Current INR goal: 2.0-3.0 Assessment: INR result of 2.2 is therapeutic Plan: Current Warfarin Dosing As of 07/05/2024 Full warfarin instructions: 5 mg every day Left voice message And sent [employer] message Advised patient to continue current weekly dose as noted above Next home INR check scheduled on 07/18/2024 Annamarie Garcia RPh Clinical Pharmacist, Pharmacy Anticoagulation Clinic Pharmacy Anticoagulation Clinic Pager: [phone]. [facility]09-20-2024 Miscellaneous Notes* Telephone Encounter - Annamarie Garcia RPh - 07/05/2024 9:43 AM EDT [facility] Anticoagulation Episode Summary Anticoagulation Care Providers Provider Role Specialty Phone number Guanakito Reno MD [facility] [phone] Cal Mitchell is a 79 year old [...] every day Left voice message And sent [employer] message Advised patient to continue current weekly dose as noted above Next home INR check scheduled on 07/18/2024 Annamarie Garcia [facility] Clinical Pharmacist, Pharmacy Anticoagulation Clinic Pharmacy Anticoagulation Clinic Pager: [phone]. documented in this encounterOhiohealth09-03-2024 Telephone encounter Note * Telephone Encounter - Jimmy Carrizales [facility] - 06/18/2024 8:39 AM EDT [facility] Anticoagulation Episode Summary Anticoagulation Care Providers Provider Role Specialty Phone number Guanakito Reno MD [facility] [phone] Cal Mitchell is a 78 year old [...] Pharmacy Anticoagulation Clinic Pharmacy Anticoagulation Clinic Pager: [phone]. [facility]09-03-2024 Miscellaneous Notes* Telephone Encounter - Jimmy Carrizales RPh - 06/18/2024 8:39 AM EDT [facility] Anticoagulation Episode Summary Anticoagulation Care Providers Provider Role Specialty Phone number Guanakito Reno MD [facility] Medicine [phone] Cal Mitchell is a 78 year old [...] ALLERGIES No Known Allergies Indication for Warfarin: terminologist (current) use of anticoagulants Paroxysmal atrial fibrillation [...] Pharmacy Anticoagulation Clinic Pharmacy Anticoagulation Clinic Pager: [phone]. documented in this encounterOhiohealth08-22-2024 Instructions* Patient Instructions* Carolina Landeros APRN.CNP - 06/06/2024 12:10 PM EDT 1) Stop Actos 2) Stop melatonin 3) Try to increase protein 4) Follow up in 1 months documented in this encounterOhiohealth08-22-2024 History of Present illness Narrative* Carolina Landeros APRN.[facility] - 06/06/2024 11:39 AM EDT This is [...] 250.00. Insulin: No Lancets (ONE TOUCH DELICA) [facility] lancets Test blood sugar(s) one time daily. [...] as needed for worsening/no improvement. Carolina Landeros APRN.BINGO FLOATER documented in this encounterOhiohealth08-21-2024 Telephone encounter Note * Telephone Encounter - Josselyn Barrow LPN - 06/05/2024 4:53 PM EDT Attempted to reach daughter and her is already here with patient. [place] [address]-21-2024 Miscellaneous Notes* Telephone Encounter - Josselyn Barrow [...] Bill? Corrina Lennon APRN.CNP documented in this encounterOhiohealth08-21-2024 Telephone encounter Note * Telephone Encounter - [...] can get him scheduled. Corrina Lennon APRN.CNP [facility]08-21-2024 History of Present illness Narrative* Valerie Connelly APRN.CNP - 06/05/2024 4:45 PM EDT This note was created using [employer]. Subjective Cal Mitchell is a 78 year old male. 78 year old male with PMH HTN, hyperlipidemia, afib, PAD, CKD, DM presents for medical complaints. Acute onset of symptoms was over a week ago Patients daughter had sent in a [employer] message on 06/03/24. At that time she [...] history is provided by the patient. No garnett machine operator helper was used. Edema This is a new [...] change medicines related to chronic conditions. Reviewed KFx Medical messages where patient was requested to be seen in person by PCP Appt made for AM 06/06/24 Valerie Connelly APRN.KOURTNEY documented in this encounterOhiohealth08-21-2024 Telephone encounter Note * Telephone Encounter - [...] daughter Elly or son-in-law Gustavo. Thank you. [facility]08-19-2024 Telephone encounter Note* Telephone Encounter - Corrina Lennon APRN.CNP - 06/03/2024 7:42 PM EDT We should probably have him in so we can see his legs and check his blood pressure. Please help schedule. Can we also get him contact info for nephrology. If he is looking for carole, it would probably beDrTitus Khan? Corrina Lennon APRN.KOURTNEY [facility]08-08-2024 Telephone encounter Note* Telephone Encounter - Chely Nicolas RN - 05/23/2024 9:49 AM EDT Images from the original note were not included. Gladys Bella31 minutes ago (9:17 AM) TR Good Morning. Pt is scheduled for Valve Clinic on 07/10/24 at 8:30 am per Josselyn. [facility]08-08-2024 Miscellaneous Notes* Telephone Encounter - Chely Nicolas [...] PM EDT ----- Message from Josselyn Mayer APRN.BINGO FLOATER sent at 05/20/2024 2:28 PM EDT ----- Creatinine 2.3. Per chart review he was asymptomatic but had an episode of syncope. Do you want work up first or just valve clinic? Josselyn ----- Message ----- From: Pam Reddy MD Sent: 05/18/2024 8:44 AM EDT To: Chely Nicolas RN; Josselyn Mayer APRN.BINGO FLOATER Aortic stenosis need to establish care at [...] the valve clinic sle documented in this encounterOhiohealth08-08-2024 Telephone encounter Note * Telephone Encounter - Chely Nicolas RN - 05/23/2024 8:27 AM EDT Left message on voicemail requesting pt return call for test results and MD recommendations. Officephone number provided. Chely Nicolas RN [facility]08-08-2024 Telephone encounter Note* Telephone Encounter - Chely Nicolas RN - 05/23/2024 8:26 AM EDT Images from the original note were not included. Pam Reddy MD You; InemanJosselyn APRN.CNP15 hours ago (4:42 PM) Let's see at the valve clinic kam [facility]08-06-2024 Telephone encounter Note* Telephone Encounter - Wilfred June Sarah - 05/21/2024 3:10 PM EDT Patient's son in law called in to confirm appointment with Dr. Reddy. Thanks Claritza Sarah Hardin [facility]08-06-2024 Miscellaneous Notes* Telephone Encounter - Wilfred June [...] you, Josselyn Mayer APRN.CNP documented in this encounterOhiohealth08-05-2024 Telephone encounter Note * Telephone Encounter - [...] EDT To: Chely Nicolas RN; Josselyn Mayer APRN.BINGO FLOATER Aortic stenosis need to establish care at the valve clinic kam [facility]08-05-2024 Telephone encounter Note* Telephone Encounter - Josselyn Mayer APRN.BINGO FLOATER - 05/20/2024 2:29 PM EDT Attempted to [...] care with Nephrologists. Thank you, Josselyn Mayer APRN.BINGO FLOATER [facility] Work Phone: [phone]) 588-739708-05-2024 Telephone encounter Note* Telephone Encounter - Chely Nicolas RN - 05/20/2024 9:59 AM EDT Left message on voicemail requesting pt return call for test results. Office phone number provided. Chely Nicolas RN [facility]08-05-2024 Telephone encounter Note* Telephone Encounter - Chely Nicolas RN - 05/20/2024 9:58 AM EDT ----- Message from Pam Reddy MD sent at 05/18/2024 8:44 AM EDT ----- Aortic stenosis need to establish care at the valve clinic sleik [facility]08-02-2024 Telephone encounter Note* Telephone Encounter - Dorothy Joshua [facility] - 05/17/2024 9:22 AM EDT [facility] Anticoagulation Episode Summary Anticoagulation Care Providers Provider Role Specialty Phone number Guanakito Reno MD [facility] [phone] Cal Mitchell is a 78 year old [...] warfarin instructions: 5 mg every day Sent KFx Medical message Advised patient to continue current weekly dose as noted above Next home INR check scheduled on 05/30/2024 Dorothy Joshua RPh Clinical Pharmacist, Pharmacy Anticoagulation Clinic [facility] Pager: [phone]. [facility]08-02-[facility]24 Miscellaneous Notes* Telephone Encounter - Dorothy Joshua RPh - 05/17/2024 9:22 AM EDT [facility] Anticoagulation Episode Summary Anticoagulation Care Providers Provider Role Specialty Phone number Guanakito Reno MD [facility] [phone] Cal Mitchell is a 78 year old [...] ALLERGIES No Known Allergies Indication for Warfarin: terminologist (current) use of anticoagulants Paroxysmal atrial fibrillation (hcc) Anticoagulation Episode Summary Current INR goal: 2.0-3.0 Assessment: INR result of 2.8is therapeutic Plan: Current Warfarin Dosing As of 05/17/2024 Full warfarin instructions: 5 mg every day Sent KF[employer] Medical message Advised patient to continue current weekly dose as noted above Next home INR check scheduled on 05/30/2024 Dorothy Joshua RPh Clinical Pharmacist, Pharmacy Anticoagulation Clinic Pharmacy Antico[facility] Clinic Pager: [phone]. documented in this encounterOhiohealth07-22-2024 Instructions* Patient Instructions* Corrina Lennon APRN.CNP - 05/06/2024 6:38 PM EDT Continue to try to get the stool sample. Continue the same medication. Schedule with nephrology (kidney doctor). Recheck with Dr. Reno in 2 months. documented in this encounterOhiohealth07-22-2024 History of Present illness Narrative* Corrina Lennon [...] a fall. Was outside and grabbed the [id number] and shook it for a few seconds [...] 8 hours as needed. blood sugar diagnostic (EverwiseTOUCH ULTRA TEST) test strip Test blood sugar(s) one times daily. Dx: 250.00. Insulin: No Lancets (ONE TOUCH DELICA) [facility] lancets Test blood sugar(s) one time daily. [...] as needed for worsening/no improvement. Corrina Lennon APRN.BINGO FLOATER documented in this encounterOhiohealth07-18-2024 History of Present illness Narrative* Jody Queen [...] PATIENT PRESENTS WITH AN IMPLANTABLE OR ATTACHED BIT SANDER: No RADIOLOGY DEPARTMENT: Ultrasound PERIPHERAL IV DATA: Not applicable SIGNED BY: Jody Queen RDMS May 02, 2024 10:49 AM documented in this encounterOhiohealth07-15-2024 Telephone encounter Note * Telephone Encounter - Stephany Graves MA - 04/29/2024 9:48 AM EDT Spoke with daughter. She stated she was suppose to call the local automatic equipment technician but didn't have the number and then forgot to call office to get it. Also she is not able to log into the [employer] account, states she forgot password. I have sent number for Dr. Khan to pt home along with mychart number so she can get [employer] account fixed and call to set up his appt with automatic equipment technician. Pt needs refill of Lipitor sent to [facility]. Stephany Graves MA [facility]07-15-2024 Miscellaneous Notes* Telephone Encounter - Stephany Graves MA - 04/29/2024 9:48 AM EDT Spoke with daughter. She stated she was suppose to call the local automatic equipment technician but didn't have the number and then forgot to call office to get it. Also she is not able to log into the [employer] account, states she forgot password. I have sent number for Dr. Khan to pt home along with [employer] number so she can get [employer] account fixed and call to set up his appt with automatic equipment technician. Pt needs refill of Lipitor sent to [...] nephrology? Was ordered previously. documented in this encounterOhiohealth07-10-2024 Telephone encounter Note * Telephone Encounter - Ruthie Cuevas RP - 04/24/2024 9:45 AM EDT [facility] Anticoagulation Episode Summary Anticoagulation Care Providers Provider Role Specialty Phone number Guanakito Reno MD [facility] Medicine [phone] Cal Mitchell is a 78 year old [...] warfarin instructions: 5 mg every day Sent KFx Medical message Advised patient to continue current weekly dose as noted above Next home INR check scheduled on 05/07/2024 Ruthie Cuevas RPh Clinical Pharmacist, Pharmacy Anticoagulation Clinic Pharmacy Antico[facility] Pager: [phone]. [facility]07-10-2024 Miscellaneous Notes* Telephone Encounter - Ruthie Cuevas RPh - 04/24/2024 9:45 AM EDT [facility] Anticoagulation Episode Summary Anticoagulation Care Providers Provider Role Specialty Phone number Guanakito Reno MD [facility] [phone] Cal Mitchell is a 78 year old [...] warfarin instructions: 5 mg every day Sent KFx Medical message Advised patient to continue current weekly dose as noted above Next home INR check scheduled on 05/07/2024 Ruthie Cuevas RPh Clinical Pharmacist, Pharmacy Anticoagulation Clinic Pharmacy Anticoagulation Clinic Pager: [phone]. documented in this encounterOhiohealth07-05-2024 Telephone encounter Note * Telephone Encounter - Geovanna Hinds MA - 04/19/2024 4:14 PM EDT Left message for patient to return call. Geovanna Hinds Ma [facility]07-05-2024 Telephone encounter Note* Telephone Encounter - Guanakito Reno MD - 04/19/2024 3:46 PM EDT Anemia is stable. I still need an ifobt done since he is on blood thinners to rule out gi blood loss. It may well be related to his kidneys. They are stable but worse. Did he get set up with nephrology? Was ordered previously. [facility]06-24-2024 Telephone encounter Note* Telephone Encounter - Corrina Lennon APRN.KOURTNEY - 04/08/2024 3:45 PM EDT Pt aware. Corrina Lennon APRN.BINGO FLOATER [facility]06-24-2024 Miscellaneous Notes* Telephone Encounter - Corrina Lennon APRN.CNP - 04/08/2024 3:45 PM EDT Pt aware. Corrina Lennon APRN.BINGO FLOATER * Telephone Encounter - Josselyn Barrow LPN [...] two weeks. See nephrology documented in this encounterOhiohealth06-24-2024 Telephone encounter Note * Telephone Encounter - Alejandro Molina RPh - 04/08/2024 3:36 PM EDT [facility] Anticoagulation Episode Summary Anticoagulation Care Providers Provider Role Specialty Phone number Guanakito Reno MD [facility] [phone] Cal Mitchell is a 78 year old [...] Pharmacy Anticoagulation Clinic Pharmacy Anticoagulation Clinic Pager: [phone]. [facility]06-24-2024 Miscellaneous Notes* Telephone Encounter - Alejandro Molina RPh - 04/08/2024 3:36 PM EDT [facility] Anticoagulation Episode Summary Anticoagulation Care Providers Provider Role Specialty Phone number Guanakito Reno MD [facility] [phone] Cal Mitchell is a 78 year old [...] verbalizes understanding of the plan. Alejandro Molina [facility] Clinical Pharmacist, Pharmacy Anticoagulation Clinic Pharmacy Anticoagulation Clinic Pager: [phone]. documented in this encounterOhiohealth06-24-2024 Instructions* Patient Instructions* Corrina Lennon APRN.CNP - 04/08/2024 3:11 PM EDT Continue the same medication. Get the repeat labs in 2 weeks. Get the echo, carotid ultrasound, kidney ultrasound as planned. Schedule w/ nephrology. Schedule back in 1 month for recheck. documented in this encounterOhiohealth06-24-2024 History of Present illness Narrative* Corrina Lennon [...] 8 hours as needed. blood sugar diagnostic (EverwiseTOUCH ULTRA TEST) test strip Test blood sugar(s) [...] as needed for worsening/no improvement. Corrina Lennon APRN.BINGO FLOATER The patient indicates understanding of these issues and agrees with the plan. documented in this encounterOhiohealth06-22-2024 Telephone encounter Note * Telephone Encounter - [...] Diana Jimenez PharmD, MPH Anticoagulation Clinic Pharmacist [phone] [facility]06-22-2024 Miscellaneous Notes* Telephone Encounter - Nabila Jimenez [...] Diana Jimenez PharmD, MPH Anticoagulation Clinic Pharmacist [phone] * Telephone Encounter - Nabila Jimenez RPh - 04/06/2024 3:49 PM EDT Called and LM for patient and sent MyChart referenced in VM (though patient has not logged into Clinical Datat since December). Patient was asked to call/page PAC at next convenience to confirm receipt of message Will follow up on Monday and expect next INR on that date Diana Jimenez PharmD, MPH Anticoagulation Clinic Pharmacist [phone] * Telephone Encounter - Yamilka Heath RN - 04/04/2024 1:14 PM EDT Alana Perez calling in INR result today (04/04.) result has been addressed below. Apurva Heath RN Pharmacy Anticoagulation Clinic * Telephone Encounter - Jimmy Carrizales [facility] - 04/04/2024 12:26 PM EDT [facility] Anticoagulation Episode Summary Anticoagulation Care Providers Provider Role Specialty Phone number Guanakito Reno MD [facility] [phone] Cal Mitchell is a 78 year old [...] Pharmacy Anticoagulation Clinic Pharmacy Anticoagulation Clinic Pager: [phone]. documented in this encounterOhiohealth06-22-2024 Telephone encounter Note * Telephone Encounter - Nabila Jimenez RPh - 04/06/2024 3:49 PM EDT Called and LM for patient and sent Vision[employer] referenced in VM (though patient has not logged into Visionnaire since December). Patient was asked to call/page PAC at next convenience to confirm receipt of message Will follow up on Monday and expect next INR on that date Diana Jimenez, SamirD, MPH Anticoagulation Clinic Pharmacist [phone] [facility]06-21-2024 Telephone encounter Note* Telephone Encounter - Josselyn Barrow LPN - 04/05/2024 4:25 PM EDT Has visit scheduled with Corrina on Monday will route to their pool. If he keeps that appt can you please close for us? Thank you. [facility]06-21-2024 Telephone encounter Note* Telephone Encounter - Carolina Alba MA - 04/05/2024 4:19 PM EDT No answer. Left detailed message stating we were calling in regards to results and needing to discuss a few things. Advised to return call. Carolina Alba MA [facility]06-21-2024 Telephone encounter Note* Telephone Encounter - Jonelle Worley LPN - 04/05/2024 10:41 AM EDT Phoned patient left message to return call and ask to speak to a nurse. [facility]06-21-2024 Telephone encounter Note* Telephone Encounter - Guanakito Reno MD - 04/05/2024 10:21 AM EDT Anemia is stable. May be related to his kidneys. Renal function continues to be slightly worse. Get renal us as ordered. Check ifobt. Recheck labs in two weeks. See nephrology [facility]06-20-2024 Telephone encounter Note* Telephone Encounter - Yamilka Heath RN - 04/04/2024 1:14 PM EDT Alana Perez calling in INR result today (04/04.) result has been addressed below. Apurva Heath RN Pharmacy [facility]tico[facility]06-20-2024 Telephone encounter Note* Telephone Encounter - Jimmy Carrizales [facility] - 04/04/2024 12:26 PM EDT [facility] Anticoagulation Episode Summary Anticoagulation Care Providers Provider Role Specialty Phone number Guanakito Reno MD [facility] [phone] Cal Mitchell is a 78 year old [...] return call tomorrow Jimmy Carrizales [facility] Clinical Pharmacist, Pharmacy Anticoagulation Clinic Pharmacy Anticoagulation Clinic Pager: [phone]. [facility]06-11-2024 Instructions* Patient Instructions* Guanakito Reno MD - 03/26/2024 5:00 PM EDT Stop lisinopril hctz Start lisinopril. Call if any shortness of breath or edema. Weigh daily. Call us if you gain more than 3-4 lbs in a 24 hour period Get carotid ultrasound Recheck labs end of this week or early next. documented in this encounterOhiohealth06-11-2024 History of Present illness Narrative* Guanakito Reno [...] mg daily. Needs 30 day supply to [employer] while waiting for shipment from [employer]. No myalgias HTN: Continues on Zestoretic 20-12.5 [...] 8 hours as needed. blood sugar diagnostic (EverwiseTOUCH ULTRA TEST) test strip Test blood sugar(s) one times daily. Dx: 250.00. Insulin: No Lancets (ONE TOUCH DELICA) [facility] lancets Test blood sugar(s) one time daily. [...] ICD10: G30.9, F01.50, F02.80 - stable. 9. FPC (current) use of anticoagulants - ICD9: [...] two weeks or prn. documented in this encounterOhiohealth06-10-2024 History of Present illness Narrative* Pam Reddy MD - 03/25/2024 5:19 PM EDT Images from the original note were not included. Pam Reddy MD Interventional Cardiology [address] [place] [address] [phone] Chief Complaint Patient presents with: Follow Up [...] 150 Strip 3 Lancets (ONE TOUCH DELICA) [facility] lancets Test blood sugar(s) one time daily. [...] to correct any errors. documented in this encounterOhiohealth05-24-2024 History of Present illness Narrative* Melania Galindo, [...] of . Patient Attributed To: YANCIE Payer: [facility] Action Taken: Data submitted to Payer Visionnaire message to patient Notation made to upcoming appointment notes requesting provider follow up Contact made with patient: No, Chart review only. Melania Galindo RN documented in this encounterOhiohealth05-23-2024 Telephone encounter Note * Telephone Encounter - Jimmy Carrizales, [facility] - 03/07/2024 11:54 AM EDT [facility] Anticoagulation Episode Summary Anticoagulation Care Providers Provider Role Specialty Phone number Guanakito Reno MD [facility] Medicine [phone] Cal Mitchell is a 78 year old [...] Pharmacy Anticoagulation Clinic Pharmacy Anticoagulation Clinic Pager: [phone]. [facility]05-23-2024 Miscellaneous Notes* Telephone Encounter - Jimmy Carrizales RPh - 03/07/2024 11:54 AM EDT [facility] Anticoagulation Episode Summary Anticoagulation Care Providers Provider Role Specialty Phone number Guanakito Reno MD [facility] Medicine [phone] Cal Mitchell is a 78 year old [...] ALLERGIES No Known Allergies Indication for Warfarin: terminologist (current) use of anticoagulants Paroxysmal atrial fibrillation [...] INR check scheduled on 03/21/2024 Jimmy Carrizales [facility] Clinical Pharmacist, Pharmacy Anticoagulation Clinic Pharmacy Anticoagulation Clinic Pager: [phone]. documented in this encounterOhiohealth05-01-2024 Telephone encounter Note * Telephone Encounter - Ruthie Cuevas RPh - 02/14/2024 9:04 AM EDT [facility] Anticoagulation Episode Summary Anticoagulation Care Providers Provider Role Specialty Phone number Guanakito Reno MD [facility] [phone] Cal Mitchell is a 78 year old [...] Pharmacy Anticoagulation Clinic Pharmacy Anticoagulation Clinic Pager: [phone]. [facility]05-01-2024 Miscellaneous Notes* Telephone Encounter - Ruthie Cuevas RPh - 02/14/2024 9:04 AM EDT [facility] Anticoagulation Episode Summary Anticoagulation Care Providers Provider Role Specialty Phone number Guanakito Reno MD [facility] Medicine [phone] Cal Mitchell is a 78 year old [...] ALLERGIES No Known Allergies Indication for Warfarin: terminologist (current) use of anticoagulants Paroxysmal atrial fibrillation [...] Pharmacy Anticoagulation Clinic Pharmacy Anticoagulation Clinic Pager: [phone]. documented in this encounterOhiohealth04-03-2024 Miscellaneous Notes* Telephone Encounter - Darrell Meyer [...] Thank you. Betzy Colvin. documented in this [facility]04-03-2024 Miscellaneous Notes* Telephone Encounter - Betzy Colvin - 01/17/2024 3:22 PM EDT Patient's daughter calling to request medication that is on patient list pioglitazone (ACTOS) 15 mg tablet Please [facility]. documented in this encounterOhiohealth04-01-2024 Miscellaneous Notes* Telephone Encounter - Alejandro Molina RPh - 01/15/2024 10:32 AM EDT [facility] Anticoagulation Episode Summary Anticoagulation Care Providers Provider Role Specialty Phone number Guanakito Reno MD [facility] [phone] Cal Mitchell is a 78 year old [...] instructed to call Pharm[facility] at [phone] with any questionsor concerns. Alejandro Molina RPh Clinical Pharmacist, Pharmacy Anticoagulation Clinic Pharmacy Anticoagulation Clinic Pager: [phone] documented in this encounterOhiohealth03-08-2024 Instructions* Patient Instructions* Carolina Landeros APRN.CNS - 12/22/2023 3:30 PM EST 1) Telfa dressing change daily 2) Letter for [facility] 3) Follow up in 3m 4) Melatonin 3mg qhs and may repeat once through night if needed documented in this encounterOhiohealth03-08-2024 History of Present illness Narrative* Carolina Landeros APRN.MACHINE BANDER AND CELLOPHANER - 12/22/2023 3:10 PM EST This is [...] 250.00. Insulin: No Lancets (ONE TOUCH DELICA) [facility] lancets Test blood sugar(s) one time daily. [...] agrees with the plan. documented in this encounterOhiohealth03-07-2024 Miscellaneous Notes* Telephone Encounter - Teresa Alexis [...] 7. TETANUS: 04/22/21 Protocols used: Cuts and [id number] documented in this encounterOhiohealth03-07-2024 Miscellaneous Notes* Telephone Encounter - Jimmy Carrizales, [facility] - 12/21/2023 9:03 AM EST [facility] Anticoagulation Episode Summary Anticoagulation Care Providers Provider Role Specialty Phone number Guanakito eRno MD [facility] [phone] Cal Mitchell is a 78 year old [...] scheduled on 01/04/2024 Jimmy Carrizales [facility] Clinical Pharmacist, Pharmacy Anticoagulation Clinic Pharmacy Anticoagulation Clinic Pager: [phone]. documented in this encounterOhiohealth02-19-2024 Miscellaneous Notes* Telephone Encounter - Daniel JansenGarden Implement Mechanic)Ashley - 12/04/2023 11:53 AM EST PATIENT CALL Received call from Summer with [facility] to report home meter result for patient. [facility] hasalready addressed this result (see below); nothing further needed at this time. Ashley Sanchez CPhT (Broomcorn Grader) Pharmacy Anticoagulation Clinic * Telephone Encounter - Alejandro Molina RP - 12/04/2023 9:44 AM EST [facility] Anticoagulation Episode Summary Anticoagulation Care Providers Provider Role Specialty Phone number Guanakito Reno MD [facility] [phone] Cal Mitchell is a 78 year old [...] instructed to call Pharmaceutical [facility]tico[facility] at [phone] with any questionsor concerns. Alejandro Molina RPh Clinical Pharmacist, Pharmacy Anticoagulation Clinic Pharmacy Anticoagulation Clinic Pager: [phone] documented in this encounterOhiohealth12-06-2023 Miscellaneous Notes* Telephone Encounter - Ruthie Cuevas RPh - 09/20/2023 1:16 PM EST [facility] Anticoagulation Episode Summary Anticoagulation Care Providers Provider Role Specialty Phone number Guanakito Reno MD [facility] [phone] Cal Mitchell is a 78 year old [...] ALLERGIES No Known Allergies Indication for Warfarin: terminologist (current) use of anticoagulants Paroxysmal atrial fibrillation [...] Pharmacy Anticoagulation Clinic Pharmacy Anticoagulation Clinic Pager: [phone]. documented in this encounterOhiohealth11-21-2023 History of Present illness Narrative* Mouna Vallecillo RN - 09/05/2023 1:48 PM ESTSummary: Medication Adherence review per request of payer ACM LUIS RN Action/FYI: Medication Adherence review completed per request of payer. NO PROVIDER ACTION REQUIRED Patient identified by name and date of . Patient Attributed To: [facility] Payer: [facility] Reason for review or outreach: Medication Adherence Medication Adherence Review Details: Diabetes Summary / Findings: GLIMEPIRIDE -- Refill Due - 07/18/2023 ATORVASTATIN -- Refill Due - 08/21/2023 Pharmacy - [facility] - Action Taken: Data submitted to [employer] message to patient Contact made with patient: No, Chart review only. documented in this encounterOhiohealth11-07-2023 Miscellaneous Notes* Telephone Encounter - Twin Cole RPh - 08/22/2023 9:46 AM EST [facility] Anticoagulation Episode Summary Anticoagulation Care Providers Provider Role Specialty Phone number Guanakito Reno MD [facility] Medicine [phone] Cal Mitchell is a 78 year old [...] INR check scheduled on 09/05/2023 Twin Cole [facility] Clinical Pharmacist, Pharmacy Anticoagulation Clinic Pharmacy Anticoagulation Clinic Pager: [phone]. documented in this encounterOhiohealth11-01-2023 Miscellaneous Notes* Telephone Encounter - Gerardo Fountain [...] states "one." Please phone Elly with reply: [phone] Copied and pasted provider's message from previous encounter: Sugars are really good. Stop his glimepiride. Call sugars in two weeks. His kidney function is worse, recheck labs in one . Make sure drinking adequate fluids. documented in this encounterOhiohealth10-31-2023 Miscellaneous Notes* Telephone Encounter - Niels Rodriges [...] sure drinking adequate fluids. documented in this encounterOhiohealth10-30-2023 History of Present illness Narrative* Guanakito Reno [...] 8 hours as needed. blood sugar diagnostic (Medminder ULTRA TEST) test strip Test blood sugar(s) one times daily. Dx: 250.00. Insulin: No Lancets (ONE TOUCH DELICA) [facility] lancets Test blood sugar(s) one time daily. [...] YR, HIGH DOSE, QUADRIVALENT (FLUZONE HIGH-DOSE) - [employer] COVID-19 VACCINE (2022- SEASON) AGE 12+ YR [...] N18.31 Guanakito Reno MD documented in this encounterOhiohealth10-11-2023 Miscellaneous Notes* Telephone Encounter - Ruthie Cuevas [facility] - 07/26/2023 4:50 PM EDT [facility] Anticoagulation Episode Summary Anticoagulation Care Providers Provider Role Specialty Phone number Guanakito Reno MD [facility] [phone] Cal Mitchell is a 78 year old [...] ALLERGIES No Known Allergies Indication for Warfarin: terminologist (current) use of anticoagulants Paroxysmal atrial fibrillation [...] Pharmacy Anticoagulation Clinic Pharmacy Anticoagulation Clinic Pager: [phone]. documented in this encounterOhiohealth09-19-2023 Miscellaneous Notes* Telephone Encounter - Pily Cuevas - 07/04/2023 3:50 PM EDT Patient needs to have a gap supply sent to [facility] as well please send at least [...] notify patient. Pily Horne documented in this encounterOhiohealth09-12-2023 History of Present illness Narrative* Lizette Cardenas RN - 2023 3:08 PM EDT ACM LUIS RN Action/FYI: Medication Adherence review completed per request of payer. NO PROVIDER ACTION REQUIRED Please see requests in the Summary/Findings section below Patient identified by name and date of . Patient Attributed To: QAE Payer: [facility] Reason for review or outreach: Medication Adherence Medication Adherence Review Details: Hypertension Summary / Findings: Lisinopril was due for refill on: 05/16/23 [facility] Action Taken: Data submitted to [employer] message to patient Other Contact made with patient: No, Chart review only. Signature: Lizette Cardenas RN documented in this encounterOhiohealth08-07-2023 Miscellaneous Notes* Telephone Encounter - Alejandro Molina RPh - 05/22/2023 10:12 AM EDT [facility] Anticoagulation Episode Summary Anticoagulation Care Providers Provider Role Specialty Phone number Guanakito Reno MD [facility] Medicine [phone] Cal Mitchell is a 77 year old [...] instructed to call Pharmaceutical [facility]tico[facility] at [phone] with any questionsor concerns. Alejandro Molina RPh Clinical Pharmacist, Pharmacy Anticoagulation Clinic Pharmacy Anticoagulation Clinic Pager: [phone] documented in this encounterOhiohealth07-10-2023 Miscellaneous Notes* Telephone Encounter - Alejandro Molina RPh - 04/24/2023 10:04 AM EDT [facility] Anticoagulation Episode Summary Anticoagulation Care Providers Provider Role Specialty Phone number Guanakito Reno MD [facility] [phone] Cal Mitchell is a 77 year old [...] Pharmacy Anticoagulation Clinic Pharmacy Anticoagulation Clinic Pager: [phone]. documented in this encounterOhiohealth07-05-2023 Miscellaneous Notes* Telephone Encounter - Anna Mas [...] patient. Leslie Perez Pss documented in this encounterOhiohealth06-13-2023 Miscellaneous Notes* Telephone Encounter - Twin Cole RPh - 03/28/2023 3:22 PM EDT [facility] Anticoagulation Episode Summary Anticoagulation Care Providers Provider Role Specialty Phone number Guanakito Reno MD [facility] Family Medicine [phone] Cal Mitchell is a 77 year old [...] Pharmacy Anticoagulation Clinic Pharmacy Anticoagulation Clinic Pager: [phone]. documented in this encounterOhiohealth05-01-2023 History of Present illness Narrative* Dory Mayers RN - 02/13/2023 4:13 PM EDT EVENT MONITOR DISPOSABLE PATCH INSTRUCTIONS Patient Name: Cal Mitchell Clinic Number: [id number] Skin prepped and cleansed with alcohol Patch secured to prepped area Monitor Activated Serial #: [id number] Patient Instructed: Prescribed order timeframe Bathing guidelines Usage of event button and diary documentation Return of monitor at the end of prescribed order Call with problems [phone] or [phone] ext. [phone] Patient expresses a good understanding of instructions Dory Mayers RN * Pam Reddy MD - 02/13/2023 4:01 PM EDT Images from the original note were not included. Pam Reddy MD Interventional Cardiology [facility] [address], [place] [address] [phone] Chief Complaint Patient presents with: Established Patient [...] airway obstruction, not elsewhere classified 10/20 Diabetes ([facility]) Diverticulosis of colon (without mention of [...] to correct any errors. documented in this encounterOhiohealth04-24-2023 History of Present illness Narrative* Guanakito Reno [...] YR Guanakito Reno MD documented in this encounterOhiohealth04-03-2023 Miscellaneous Notes* Telephone Encounter - Corrina Lennon APRN.CNP - 01/16/2023 1:31 PM EDT Script sent. Corrina Lennon APRN.BINGO FLOATER * Telephone Encounter - Pily Syed MA [...] notify patient. Winifred Zazueta documented in this encounterOhiohealth03-30-2023 Miscellaneous Notes* Telephone Encounter - Jimmy Carrizales RP - 01/12/2023 4:25 PM EDT [facility] Anticoagulation Episode Summary Anticoagulation Care Providers Provider Role Specialty Phone number Guanakito Reno MD [facility] Family Medicine [phone] Cal Mitchell is a 77 year old [...] Pharmacy Anticoagulation Clinic Pharmacy Anticoagulation Clinic Pager: [phone]. * Telephone Encounter - Ruthie Cuevas RPh - 01/11/2023 9:21 AM EDT [facility] Anticoagulation Episode Summary Anticoagulation Care Providers Provider Role Specialty Phone number Guanakito Reno MD [facility] [phone] Cal Mitchell is a 77 year old [...] ALLERGIES No Known Allergies Indication for Warfarin: terminologist (current) use of anticoagulants Paroxysmal atrial fibrillation [...] Pharmacy Anticoagulation Clinic Pharmacy Anticoagulation Clinic Pager: [phone]. * Telephone Encounter - Alejandro Molina RPh - 01/09/2023 4:34 PM EDT Patient was due to test INR today. Will continue to monitor for results. documented in this encounterOhiohealth03-06-2023 Miscellaneous Notes* Telephone Encounter - Alejandro Molina RPh - 12/19/2022 10:37 AM EST [facility] Anticoagulation Episode Summary Anticoagulation Care Providers Provider Role Specialty Phone number Guanakito Reno MD [facility] [phone] Cal Mitchell is a 77 year old [...] instructed to call [facility] at [phone] with any questionsor concerns. Alejandro Molina RPh Clinical Pharmacist, Pharmacy Anticoagulation Clinic Pharmacy Anticoagulation Clinic Pager: [phone] documented in this encounterOhiohealth02-13-2023 Miscellaneous Notes* Telephone Encounter - Alejandro Molina RPh - 11/28/2022 10:18 AM EST [facility] Anticoagulation Episode Summary Anticoagulation Care Providers Provider Role Specialty Phone number Guanakito Reno MD [facility] [phone] Cal Mitchell is a 77 year old [...] instructed to call [facility] at [phone] with any questionsor concerns. Alejandro Molina RPh Clinical Pharmacist, Pharmacy Anticoagulation Clinic Pharmacy Anticoagulation Clinic Pager: [phone] documented in this encounterOhiohealth02-03-2023 Miscellaneous Notes* Telephone Encounter - Kamran Ayon RPh - 11/18/2022 12:49 PM EST Patient due to test INR today. Will continue to monitor for results. Kamran Ayon RPh documented in this encounterOhiohealth01-20-2023 Miscellaneous Notes* Telephone Encounter - Kamran Ayon [facility] - 11/04/2022 8:02 AM EST [facility] Anticoagulation Episode Summary Anticoagulation Care Providers Provider Role Specialty Phone number Guanakito Reno MD [facility] Internal Medicine [phone] Cal Mitchell is a 77 year old [...] Pharmacy Anticoagulation Clinic Pharmacy Anticoagulation Clinic Pager: [phone]. documented in this encounterOhiohealth01-17-2023 Miscellaneous Notes* Telephone Encounter - Twin Cole RPh - 11/01/2022 10:30 AM EST Patient due to test INR today. Will continue to monitor for results. Twin Cole RPh documented in this encounterOhiohealth01-10-2023 Miscellaneous Notes* Telephone Encounter - Twin Cole RPh - 10/25/2022 4:30 PM EST [facility] Anticoagulation Episode Summary Anticoagulation Care Providers Provider Role Specialty Phone number Guanakito Reno MD [facility] Internal Medicine [phone] Cal Mitchell is a 77 year old [...] ALLERGIES No Known Allergies Indication for Warfarin: terminologist (current) use of anticoagulants Paroxysmal atrial fibrillation (hcc) Anticoagulation Episode Summary Current INR goal: 2.0-3.0 Assessment: INR result of 3.4 is SUPRAtherapeutic due to: No obvious cause Patient denies any medication changes, grapefruit/cranberry ingestion, OTC/herbal/nutritional supplement use, accidental over dosage, changes in warfarin tablet color/shape/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 * Telephone Encounter - Ruthie Cuevas RPh - 10/19/2022 4:33 PM EST Patient was due to test INR today will continue to monitor for results. Ruthie Cuevas PharmD documented in this encounterOhiohealth12-20-2022 History of Present illness Narrative* Alondra Prescott DO - 10/04/2022 10:58 AM EST This office note has been dictated. Alondra Prescott DO * Alondra Prescott DO - 10/04/2022 12:00 AM EST NAME: CAL MITCHELL [facility] NO: [id number] DATE OF SERVICE: 10/04/2022 Subjective: Mr. Mitchell [...] concerns. Alondra Prescott D.O. KB/089 Audio #: [id number] Date Dictated: 10/04/2022 10:13:59 Date Typed: 10/05/2022 14:12:47 Date Revised: documented in this encounterOhiohealth12-15-2022 Miscellaneous Notes* Telephone Encounter - Jimmy Carrizales [facility] - 09/29/2022 4:38 PM EST [facility] Anticoagulation Episode Summary Anticoagulation Care Providers Provider Role Specialty Phone number Guanakito Reno MD [facility] Family Medicine [phone] Cal Mitchell is a 77 year old [...] ALLERGIES No Known Allergies Indication for Warfarin: terminologist (current) use of anticoagulants Paroxysmal atrial fibrillation [...] denies need for refills. Jimmy Huong Plantner, [facility] Clinical Pharmacist, Pharmacy Anticoagulation Clinic Pharmacy Anticoagulation Clinic Pager: [phone]. * Telephone Encounter - Ruben Cunningham ([employer]) - 09/29/2022 2:23 PM EST PATIENT CALL Patient's daughter Elly called call center regarding results. Patient's daughter stated the INR result was 1.9 last night at 9:30 pm and gave him an extra 1/2 tablet of warfarin. January will reach out to [facility] to report result and to have them troubleshoot application for new phone. PT INR (no units) Date Value 01/24/2022 2.1 biotel 10/26/2021 2.1 (Biotel) 03/04/2021 2.4 INR Home CoaguChek (no units) Date Value 09/14/2022 1.8 07/29/2022 2.2 07/04/2022 2.7 Patient stated she lets blocked calls go to [employer]. She asked if she needed to be near the meterto report the results over the phone to [facility]--advised her I am not sure. January can be reached at [phone] Ruben Cunningham ([employer]) * Telephone Encounter - Ruthie Cuevas RPh [...] PharmD Pharmacy Anticoagulation Clinic documented in this encounterOhiohealth12-09-2022 Miscellaneous Notes* Telephone Encounter - Yasemin Joyce [...] and advise. Yasemin Cook documented in this encounterOhiohealth12-01-2022 Miscellaneous Notes* Telephone Encounter - Yamilka Heath [...] not patient's name. Messaged Bonita at [facility]. Apurva Heath RN Pharmacy Anticoagulation Clinic * Telephone Encounter - Jimmy Carrizales RPh - 09/15/2022 10:24 AM EST [facility] Anticoagulation Episode Summary Anticoagulation Care Providers Provider Role Specialty Phone number Guanakito Reno MD [facility] [phone] Cal Mitchell is a 77 year old [...] every Tue; 5 mg all other days; Rdqxyeog88/7/2022 Called and spoke to patient/caregiver - per demographics we only have daughter's phone number but no identifier Advised patient to increase dose for 1 day only then resume weekly regimen Next home INR check scheduled on 09/21/2022 Jimmy Carrizales [facility] Clinical Pharmacist, Pharmacy Anticoagulation Clinic Pharmacy Anticoagulation Clinic Pager: [phone]. * Telephone Encounter - Alejandro Molina [facility] - 09/05/2022 5:31 PM EST Added to discharge list. * Telephone Encounter - Ruthie Cuevas [facility] - 08/29/2022 4:49 PM EST Cal Mitchell was called and reminded to test INR today or as soon as possible. LM on his home/cell number. Ruthie Cuevas PharmD Pharmacy Anticoagulation Clinic * Telephone Encounter - Alejandro Molina [facility] - 08/22/2022 4:42 PM EST Patient was due to test INR today. Will continue to monitor for results. documented in this encounterOhiohealth11-23-2022 History of Present illness Narrative* Lizette Cardenas RN - 09/07/2022 6:24 AM EST ACM LUIS RN Action/FYI: Medication Adherence review completed per request of [facility]. NO PROVIDER ACTION REQUIRED Lisinopril/Hctz 20-12.5mg Last filled: 05/21/22 Days Supply: 90 Refill Due: 08/19/22 Pharmacy: [facility] Atorvastatin 80mg Last filled: 03/20/22 Days Supply: 90 Refill Due: 06/28/22 Pharmacy: [facility] MY CHART MESSAGE SENT Patient identified by name and date of . Patient Attributed To: QAE Payer: [facility] Reason for review or outreach: Medication Adherence Medication Adherence Review Details: Cholesterol and Hypertension Summary / Findings: As per above Action Taken: Data submitted to [employer] message to patient Contact made with patient: No, Chart review only. Signature: Lizette Cardenas RN documented in this encounterOhiohealth10-31-2022 History of Present illness Narrative* Pam Reddy MD - 08/15/2022 3:48 PM EDT Images from the original note were not included. Pam Reddy MD Interventional Cardiology [facility] [address], [place] [address] [phone] Chief Complaint Patient presents with: Consult HISTORY [...] 150 Strip 3 Lancets (ONE TOUCH DELICA) [facility] lancets Test blood sugar(s) one time daily. [...] mL injection (DEFINITY) INTRAVENOUS DIRECTED PRN Pam eRddy MD sodium chloride 0.9 % (flush) 10 [...] to correct any errors. documented in this encounterOhiohealth10-17-2022 Miscellaneous Notes* Telephone Encounter - Alejandro Molina RPh - 08/01/2022 9:52 AM EDT [facility] Anticoagulation Episode Summary Anticoagulation Care Providers Provider Role Specialty Phone number Guanakito Reno MD [facility] [phone] Cal Mitchell is a 77 year old [...] instructed to call [facility] at [phone] with any questionsor concerns. Alejandro Molina RPh Clinical Pharmacist, Pharmacy Anticoagulation Clinic Pharmacy Anticoagulation Clinic Pager: [phone] documented in this encounterOhiohealth10-07-2022 Miscellaneous Notes* Telephone Encounter - Darrell Meyer [...] advise. Darrell Meyer LPN documented in this encounterOhiohealth09-20-2022 Miscellaneous Notes* Telephone Encounter - Twin Cole [facility] - 07/05/2022 9:30 AM EDT [facility] Anticoagulation Episode Summary Anticoagulation Care Providers Provider Role Specialty Phone number Guanakito Reno MD [facility] Family Medicine [phone] Cal Mitchell is a 77 year old [...] Pharmacy Anticoagulation Clinic Pharmacy Anticoagulation Clinic Pager: [phone]. * Telephone Encounter - Alejandro Molina RPh - 07/04/2022 3:42 PM EDT Cal Mitchell was called and reminded to test INR today or as soon as possible. * Telephone Encounter - Alejandro Molina RPh - 2022 4:11 PM EDT Patient was due to test INR today. Will continue to monitor for results. documented in this encounterOhiohealth08-30-2022 Miscellaneous Notes* Telephone Encounter - Twin Cole RPh - 06/14/2022 9:14 AM EDT [facility] Anticoagulation Episode Summary Anticoagulation Care Providers Provider Role Specialty Phone number Guanakito Reno MD [facility] [phone] Cal Mitchell is a 76 year old [...] Pharmacy Anticoagulation Clinic Pharmacy Anticoagulation Clinic Pager: [phone]. * Telephone Encounter - Val Oliver RPh - 06/13/2022 9:09 AM EDT [employer] message sent as a reminder to test INR RAISSA. * Telephone Encounter - Alejandro Molina RPh - 06/06/2022 4:50 PM EDT Patient was due to test INR today. Will continue to monitor for results. documented in this encounterOhiohealth08-30-2022 History of Present illness Narrative* Nirmala Lim MA - 06/14/2022 9:03 AM EDT [facility] NAVIGATION OUTREACH Action/FYI Called and left a message to call [phone], to discuss health maintenance items that are due. Sent My Chart message. PCP appt: 01/19- needs follow up per last ov note My chart activation: active Advance directive: needs info HM due: Follow up ARIAN AD Pt identified by name and : NO Outreach Outcome/Action Unable to reach patient: Left message Clinical Datat message sent Did you use a PCP flex slot to schedule this appointment? N/A Reason for Outreach Care Gap or Scheduling/Wellness visits Payer: Payor: [facility] / Plan: UHC AARP MEDICARE HMO [...] 14, 2022 9:05 AM documented in this encounterOhiohealth08-04-2022 Miscellaneous Notes* Telephone Encounter - Huong Whittaker [...] 05/19/2022 11:56 AM EDT Pharmacy verified in [facility] Patient has been identified by [...] advise. Yasemin Garcia Pss documented in this encounterOhiohealth08-01-2022 Miscellaneous Notes* Telephone Encounter - Alejandro Molina RPh - 05/16/2022 11:54 AM EDT [facility] Anticoagulation Episode Summary Anticoagulation Care Providers Provider Role Specialty Phone number Guanakito Reno MD [facility] [phone] Cal Mitchell is a 76 year old [...] instructed to call [facility] at [phone] with any questionsor concerns. Alejandro Molina RPh Clinical Pharmacist, Pharmacy Anticoagulation Clinic Pharmacy Anticoagulation Clinic Pager: [phone] documented in this encounterOhiohealth07-11-2022 Miscellaneous Notes* Telephone Encounter - Val Oliver RPh - 04/25/2022 7:56 AM EDT Last INR due around 04/18. MyChart message sent as a reminder to test INR RAISSA. PT INR (no units) Date Value 01/24/2022 2.1 biotel 10/26/2021 2.1 (Biotel) 03/04/2021 2.4 INR Home CoaguChek (no units) Date Value 04/02/2022 2.2 03/09/2022 2.6 02/10/2022 3.4 documented in this encounterOhiohealth06-15-2022 Miscellaneous Notes* Telephone Encounter - Ruthie Cuevas [...] either. Ruthie Cuevas PharmD documented in this encounterOhiohealth06-01-2022 Miscellaneous Notes* Telephone Encounter - Nicki Nieto - 03/16/2022 10:46 AM EDT Patient is scheduled for an appt on 03/22/22 [place]. Did call the patient to see if any external imagine has been complete, left VM to call the office Or record indicates no testing has been completed since 2019 Would you like an updated carotid US Order pending please sign if correct Thanks documented in this encounterOhiohealth05-25-2022 Miscellaneous Notes* Telephone Encounter - Ruthie Cuevas RPh - 03/09/2022 4:08 PM EDT [facility] Pharmacy Anticoagulation Clinic Anticoagulation Episode Summary Anticoagulation Care Providers Provider Role Specialty Phone number Guanakito Reno MD [facility] [phone] Cal Mitchell is a 76 year old [...] therapeutic He did not read our last [employer] message and hasn't logged on in a month so tried to call. Plan: Called and spoke to patient/caregiver Advised patient to continue current weekly dose Next home INR check scheduled on 03/23/2022 Ruthie Cuevas bobbi Clinical Pharmacist, Pharmacy Anticoagulation Clinic Pharmacy Anticoagulation Clinic Pager: [phone] . documented in this encounterOhiohealth05-05-2022 Miscellaneous Notes* Telephone Encounter - Jazmyn Garcia [facility] - 02/17/2022 1:17 PM EDT Patient due to test INR today. Will continue to monitor for results. Jazmyn Garcia [facility] documented in this encounterOhiohealth04-29-2022 Miscellaneous Notes* Telephone Encounter - Denisse Hutchinson [facility] - 02/11/2022 8:21 AM EDT [facility] Anticoagulation Episode Summary Anticoagulation Care Providers Provider Role Specialty Phone number Guanakito Reno MD [facility] [phone] Cal Mitchell is a 76 year old [...] did not speak to patient Plan: Sent [employer] message Advised patient to decrease dose for 2 days only then resume weekly regimen Next home INR check scheduled on 02/17/2022 Denisse Hutchinson RPh Clinical Pharmacist, Pharmacy Anticoagulation Clinic Pharmacy Anticoagulation Clinic Pager: [phone] . * Telephone Encounter - Twin Cole RPh - 02/08/2022 4:00 PM EDT Patient due to test INR today. Will continue to monitor for results. Twin Cole RPh documented in this encounterOhiohealth04-12-2022 Miscellaneous Notes* Telephone Encounter - Twin Cole RPh - 01/25/2022 9:15 AM EDT [facility] Anticoagulation Episode Summary Anticoagulation Care Providers Provider Role Specialty Phone number Guanakito Reno MD [facility] [phone] Cal Mitchell is a 76 year old [...] Pharmacy Anticoagulation Clinic Pharmacy Anticoagulation Clinic Pager: [phone] . documented in this encounterOhiohealth04-06-2022 History of Present illness Narrative* Guanakito Reno [...] No. Dementia: Had previously been following with [employer]. Last visit 08/2020. Doesn't have anything further scheduled. Doesn't really want to go to [place], but appears last visit was distance. Does not drive. Lives w/ daughter. Stays up late at night and sleep during the day. A. Fib: Chronic anticoagulation. Denies any hematochezia/melena. Daughter does home checks. Follows w/ pharmacy. occ fall with no significant injury. Had been following with [place] [facility], but unsure when he was last seen there. Diabetes. Does not check home blood sugars. Reports compliance w/ medication. Carotid artery stenosis. Follows w/ vascular. Last visit 10/20/20. Recommended follow-up with cardiology and then Dr. Devries in [place]. He did have echo done. Unsure if he followed up with [place] [facility]. Per note, they wanted to establish [...] Abs Lymph 1.00 - 4.00 k/uL 1.65 Yates% % 7.4 Abs Yates <0.87 k/uL 0.53 Eosin% % 8.2 Abs [...] Negative Negative Ketones, Urine Negative Negative Specific [place], Ur 1.005 - 1.030 1.016 Hemoglobin/Blood,Ur Negative [...] 250.00. Insulin: No Lancets (ONE TOUCH DELICA) [facility] lancets Test blood sugar(s) one time daily. [...] three months and prn. documented in this encounterOhiohealth03-31-2022 Miscellaneous Notes* Telephone Encounter - Jazmyn Garcia RPh - 01/13/2022 2:33 PM EDT Patient due to test INR today. Will continue to monitor for results. Jazmyn Garcia RPh documented in this encounterOhiohealth11-11-2020 History of Past illness Narrative* Problem Noted [...] of this encounter (statuses as of 08/15/2023) [facility] of Past illness Narrative* Problem Noted [...] of this encounter (statuses as of 08/15/2023) [facility] of Past illness Narrative* Problem Noted [...] of this encounter (statuses as of 08/16/2023) [facility] of Past illness Narrative* Problem Noted [...] of this encounter (statuses as of 08/23/2023) [facility] of [facility] illness Narrative* Problem Noted [...] of this encounter (statuses as of 09/06/2023) [facility] of [facility] Narrative* Problem Noted [...] of this encounter (statuses as of 09/20/2023) [facility] of [facility] Narrative* Problem Noted [...] of this encounter (statuses as of 12/04/2023) [facility] of [facility] illness Narrative* Problem Noted [...] of this encounter (statuses as of 12/21/2023) [facility] of Past illness Narrative* Problem Noted [...] of this encounter (statuses as of 12/21/2023) [facility] of Past illness Narrative* Problem Noted [...] of this encounter (statuses as of 12/22/2023) [facility] of Past illness Narrative* Problem Noted [...] of this encounter (statuses as of 01/15/2024) [facility] of [facility] illness Narrative* Problem Noted [...] of this encounter (statuses as of 01/18/2024) [facility] of [facility] Narrative* Problem Noted [...] of this encounter (statuses as of 01/19/2022) [facility] Narrative* Problem Noted [...] of this encounter (statuses as of 01/25/2022) [facility] Narrative* Problem Noted [...] of this encounter (statuses as of 02/11/2022) [facility] Narrative* Problem Noted [...] of this encounter (statuses as of 03/09/2022) [facility] Narrative* Problem Noted [...] of this encounter (statuses as of 03/17/2022) [facility] Narrative* Problem Noted [...] of this encounter (statuses as of 03/18/2022) [facility] Narrative* Problem Noted [...] of this encounter (statuses as of 04/04/2022) [facility] Narrative* Problem Noted [...] of this encounter (statuses as of 04/25/2022) [facility]* Problem Noted [...] of this encounter (statuses as of 05/13/2022) [facility]* Problem Noted [...] of this encounter (statuses as of 05/16/2022) [facility] N[facility]* Problem Noted [...] of this encounter (statuses as of 05/19/2022) [facility]* Problem Noted [...] of this encounter (statuses as of 06/14/2022) [facility] Narrative* Problem Noted [...] of this encounter (statuses as of 07/05/2022) [facility] History of Past illness Narrative* Problem Noted [...] of this encounter (statuses as of 07/22/2022) [facility] History of Past illness Narrative* Problem Noted [...] of this encounter (statuses as of 08/01/2022) [facility] History of Past illness Narrative* Problem Noted [...] of this encounter (statuses as of 08/15/2022) [facility] History of Past illness Narrative* Problem Noted [...] of this encounter (statuses as of 09/07/2022) [facility] History of Past illness Narrative* Problem Noted [...] of this encounter (statuses as of 09/15/2022) [facility] History of Past illness Narrative* Problem Noted [...] of this encounter (statuses as of 09/23/2022) [facility] History of Past illness Narrative* Problem Noted [...] of this encounter (statuses as of 09/29/2022) [facility] History of Past illness Narrative* Problem Noted [...] of this encounter (statuses as of 10/16/2022) [facility] History of Past illness Narrative* Problem Noted [...] of this encounter (statuses as of 10/25/2022) [facility] History of Past illness Narrative* Problem Noted [...] of this encounter (statuses as of 11/04/2022) [facility] History of Past illness Narrative* Problem Noted [...] of this encounter (statuses as of 11/08/2022) [facility] History of Past illness Narrative* Problem Noted [...] of this encounter (statuses as of 11/18/2022) [facility] History of Past illness Narrative* Problem Noted [...] of this encounter (statuses as of 11/28/2022) [facility] History of Past illness Narrative* Problem Noted [...] of this encounter (statuses as of 12/19/2022) [facility] History of Past illness Narrative* Problem Noted [...] of this encounter (statuses as of 01/12/2023) [facility] History of Past illness Narrative* Problem Noted [...] of this encounter (statuses as of 01/16/2023) [facility] History of Past illness Narrative* Problem Noted [...] of this encounter (statuses as of 02/07/2023) [facility] History of Past illness Narrative* Problem Noted [...] of this encounter (statuses as of 02/14/2023) [facility] History of Past illness Narrative* Problem Noted [...] of this encounter (statuses as of 03/29/2023) [facility] History of Past illness Narrative* Problem Noted [...] of this encounter (statuses as of 04/20/2023) [facility] of Past illness Narrative* Problem Noted [...] of this encounter (statuses as of 04/24/2023) [facility] History of Past illness Narrative* Problem Noted [...] of this encounter (statuses as of 05/22/2023) [facility] History of Past illness Narrative* Problem Noted [...] of this encounter (statuses as of 06/28/2023) [facility] History of Past illness Narrative* Problem Noted [...] of this encounter (statuses as of 07/05/2023) [facility] of Past [facility] Narrative* Problem Noted [...] of this encounter (statuses as of 07/27/2023) [facility] Diagnosis Essential hypertension- Primary Unspecified essential [...] 3b CKD (HCC) [facility]* Diagnosis FPC (current) use of anticoagulants- Primary Long-term (current) use of anticoagulants Paroxysmal atrial fibrillation (HCC) Atrial fibrillation [facility] Diagnosis FPC (current) use of anticoagulants- Primary Long-term (current) use of anticoagulants Paroxysmal atrial fibrillation (HCC) Atrial fibrillation [facility] Diagnosis FPC (current) use of anticoagulants- Primary Long-term (current) use of anticoagulants Paroxysmal atrial fibrillation (HCC) Atrial fibrillation [facility] Diagnosis FPC (current) use of anticoagulants- Primary Long-term (current) use of anticoagulants Paroxysmal atrial fibrillation (HCC) Atrial fibrillation [facility]* Diagnosis Bilateral carotid artery stenosis- Primary [...] (HCC) [facility] Diagnosis Essential hypertension with goal blood pressure less than 140/90 [facility] Diagnosis terminologist (current) use of anticoagulants- Primary Long-term (current) [...] for COVID-19 vaccine [facility]* Diagnosis Syncope, unspecified syncope type- Primary Aortic valve disorder Aortic valve disorders [facility] Diagnosis Paroxysmal atrial fibrillation (HCC) Atrial fibrillation Essential hypertension with goal blood pressure less than 140/90 Benign prostatic hyperplasia without lower urinary tract symptoms Mixed dementia (HCC) Lung nodule Solitary pulmonary nodule Type 2 diabetes mellitus with stage 3 chronic kidney disease, without long-term current use of insulin (HCC) [facility] Diagnosis Essential hypertension with goal blood pressure less than 140/90 [facility]* Diagnosis FPC (current) use of anticoagulants- Primary Long-term (current) use of anticoagulants Paroxysmal atrial fibrillation (HCC) Atrial fibrillation [facility] Diagnosis Onychomycosis- Primary Dermatophytosis of nail [...] kidney disease (HCC) [facility]* Diagnosis Renal insufficiency- Primary Unspecified disorder of kidney and ureter [facility]* Diagnosis terminologist (current) use of anticoagulants- Primary Long-term (current) use of anticoagulants Paroxysmal atrial fibrillation (HCC) Atrial fibrillation [facility] Diagnosis FPC (current) use of anticoagulants- Primary Long-term (current) use of anticoagulants Paroxysmal atrial fibrillation (HCC) Atrial fibrillation [facility]* Diagnosis Abrasion of arm, left, initial encounter- Primary Chronic insomnia Insomnia, unspecified [facility]* Diagnosis Essential hypertension with goal blood pressure less than 140/90 Paroxysmal atrial fibrillation (HCC) Atrial fibrillation [facility]* Diagnosis Lung nodule Solitary pulmonary nodule [facility]* Diagnosis terminologist (current) use of anticoagulants- Primary Long-term (current) use of anticoagulants Paroxysmal atrial fibrillation (HCC) Atrial fibrillation [facility]* Diagnosis Syncope, unspecified syncope type- Primary Aortic valve disorder Aortic valve disorders Paroxysmal atrial fibrillation (HCC) Atrial fibrillation Ectatic thoracic aorta (HCC) 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, without long-term current use of insulin ([facility]) [facility]* Diagnosis Essential hypertension- Primary Unspecified essential [...] or 3b CKD (HCC) Mixed dementia (HCC) terminologist (current) use of anticoagulants Long-term (current) use of anticoagulants Obesity, Class II, BMI 35-39.9 Obesity, unspecified Renal insufficiency Unspecified disorder of kidney and ureter Anemia, unspecified type [facility]* Diagnosis terminologist (current) use of anticoagulants- Primary Long-term (current) use of anticoagulants Paroxysmal atrial fibrillation (HCC) Atrial fibrillation [facility]* Diagnosis CKD (chronic kidney disease) stage 4, 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/min ([facility])- Primary Chronic kidney disease, Stage IV (severe) Anemia, unspecified type [facility]* Diagnosis Essential hypertension- Primary Unspecified essential [...] Stage IV (severe) [facility] Diagnosis FPC (current) use of anticoagulants- Primary Long-term (current) use of anticoagulants Paroxysmal atrial fibrillation (HCC) Atrial fibrillation documented in this encounter [facility]* Diagnosis Renal insufficiency Unspecified disorder of kidney and ureter documented in this encounter [facility] note* Diagnosis Essential hypertension- Primary Unspecified essential hypertension Hypertensive kidney disease with stage 3 chronic kidney disease, unspecified whether stage 3a or 3b CKD (HCC) Anemia, unspecified type documented in this encounter [facility] note* Diagnosis terminologist (current) use of anticoagulants- Primary Long-term (current) use of anticoagulants Paroxysmal atrial fibrillation (HCC) Atrial fibrillation documented in this encounter [facility] note* Diagnosis Blood pressure check- Primary Screening for hypertension Leg swelling Swelling of limb documented in this encounter [facility] note* Diagnosis Aortic valve stenosis, etiology of cardiac valve disease unspecified- Primary Hypertensive kidney disease with stage 3b chronic kidney disease (HCC) Paroxysmal atrial fibrillation (HCC) Atrial fibrillation Benign prostatic hyperplasia without lower urinary tract symptoms Anemia, unspecified type documented in this encounter [facility] note* Diagnosis terminologist (current) use of anticoagulants- Primary Long-term (current) use of anticoagulants Paroxysmal atrial fibrillation (HCC) Atrial fibrillation [facility]* Diagnosis Screen for colon cancer- Primary Special screening for malignant neoplasms, colon documented in this encounter [facility] note* Diagnosis terminologist (current) use of anticoagulants- Primary Long-term (current) use of anticoagulants Paroxysmal atrial fibrillation (HCC) Atrial fibrillation documented in this encounter [facility] note* Diagnosis Severe aortic stenosis [I35.0]- Primary Aortic valve disorders Valvular heart disease Endocarditis, valve unspecified, unspecified cause documented in this encounter [facility] note* Diagnosis Nonrheumatic aortic valve stenosis- [...] unspecified, unspecified cause [facility] Diagnosis Essential hypertension- Primary Unspecified essential [...] disease, Stage IV (severe) Mixed dementia (HCC) FPC (current) use of anticoagulants Long-term (current) use of anticoagulants Need for vaccination Need for prophylactic vaccination and inoculation against unspecified single disease Valvular heart disease Endocarditis, valve unspecified, unspecified cause documented in this encounter [facility] note* Diagnosis Essential hypertension- Primary Unspecified essential hypertension Valvular heart disease Endocarditis, valve unspecified, unspecified cause [facility]* Diagnosis Paroxysmal atrial fibrillation (HCC)- Primary Atrial fibrillation Aortic valve stenosis, etiology of cardiac valve disease unspecified Valvular heart disease Endocarditis, valve unspecified, unspecified cause [facility]* Diagnosis Nonrheumatic aortic valve stenosis- Primary Aortic valve disorders Paroxysmal atrial fibrillation (HCC) Atrial fibrillation Valvular heart disease Endocarditis, valve unspecified, unspecified cause [facility]* Diagnosis Nonrheumatic aortic valve stenosis Aortic valve disorders Encounter for preprocedural cardiovascular examination Pre-operative cardiovascular examination [facility]* Diagnosis FPC (current) use of anticoagulants- Primary Long-term (current) use of anticoagulants Paroxysmal atrial fibrillation (HCC) Atrial fibrillation [facility]* Diagnosis Bilateral carotid artery stenosis- Primary Occlusion and stenosis of carotid artery without mention of cerebral infarction History of carotid endarterectomy Other postprocedural status [facility]* Diagnosis terminologist (current) use of anticoagulants- Primary Long-term (current) use of anticoagulants Paroxysmal atrial fibrillation (HCC) Atrial fibrillation [facility]* Diagnosis Hyperlipidemia, mixed- Primary Mixed hyperlipidemia [...] (HCC) Chronic kidney disease, Stage IV (severe) terminologist (current) use of anticoagulants Long-term (current) use of anticoagulants Obesity, Class II, BMI 35-39.9 Obesity, unspecified Viral conjunctivitis Unspecified diseases of conjunctiva due to viruses Seasonal allergic rhinitis, unspecified trigger Bilateral impacted cerumen Impacted cerumen documented in this encounter [facility] note* Diagnosis FPC (current) use of anticoagulants- Primary Long-term (current) use of anticoagulants Paroxysmal atrial fibrillation (HCC) Atrial fibrillation documented in this encounter [facility] note* Diagnosis Paroxysmal atrial fibrillation (HCC) Atrial fibrillation documented in this encounter [facility] for referral (narrative)* Outpatient Procedure (Routine) - Pending Review Specialty Diagnoses / Procedures Referred By Contac t Referred To Contact [facility] [place] Diagnoses Bilateral carotid artery stenosis Procedures US CAROTID ARTERIES GRAY VAS LAB DUPLEX SCAN EXTRACRANIAL ART COMPL BI STUDY Alondra Prescott DO [address] [place] [address] [facility] [place] [address] Referral ID Status Reason Start Date Expiration Date Visits Requested Visits Authorized [id number] Pending Review Auto-Generat ed Referral 03/18/2022 03/16/2023 1 1 [facility] for referral (narrative)* Outpatient Procedure (Routine) - Authorized Specialty Diagnoses / Procedures Referred By Contac t Referred To Contact [facility] [place] Diagnoses Nonrheumatic aortic valve stenosis Procedures ECHO ECHO TTHRC R-T 2D W/WOM-MODE COMPL SPEC&COLR Pam Velazco MD [address] [place] [address] [facility] [address] [address] Referral ID Status Reason Start Date Expiration Date Visits Requested Visits Authorized [id number] Authorized Auto-Generat ed Referral 08/22/2022 08/15/2023 1 1 [facility] for referral (narrative)* Outpatient Procedure (Routine) - Pending Review Specialty Diagnoses / Procedures Referred By Contac t Referred To Contact [facility] Diagnoses Bilateral carotid artery stenosis Procedures US CAROTID ARTERIES GRAY VAS LAB DUPLEX SCAN EXTRACRANIAL ART COMPL BI STUDY Alondra Prescott DO [address] [place] [address] [address] Referral ID Status Reason Start Date Expiration Date Visits Requested Visits Authorized [id number] Pending Review Auto-Generat ed Referral 2 10/04/2023 1 1 [facility] for referral (narrative)* Outpatient Procedure (Routine) - Authorized Specialty Diagnoses / Procedures Referred By Contac t Referred To Contact [facility] Diagnoses Syncope, unspecified syncope type Aortic valve disorder Procedures ECHO ECHO TTHRC R-T 2D W/WOM-MODE COMPL SPEC&COLR D Pam Reddy MD [address] [place] [address] [facility] [address] [place] [address] Referral ID Status Reason Start Date Expiration Date Visits Requested Visits Authorized [id number] Authorized Auto-Generat ed Referral 02/20/2023 02/13/2024 1 1 [facility] for referral (narrative)* Outpatient Procedure (Routine) - Pending Review Specialty Diagnoses / Procedures Referred By Contac t Referred To Contact [facility] Diagnoses Syncope, unspecified syncope type Aortic valve disorder Procedures ECHO ECHO TTHRC R-T 2D W/WOM-MODE COMPL SPEC&COLR D Pam Reddy MD [address], [address] [place] [address] [facility] [place] [address] [place] [address] Referral ID Status Reason Start Date Expiration Date Visits Requested Visits Authorized [id number] Pending Review Auto-Generat ed Referral 04/08/2024 03/25/2025 1 1 * Outpatient Procedure (Routine) - Pending Review Specialty Diagnoses / Procedures Referred By Contac t Referred To Contact [facility] [place] Diagnoses Syncope, unspecified syncope type Aortic valve disorder Paroxysmal atrial fibrillation (HCC) Procedures ECG COMPLETE ECG ROUTINE ECG W/LEAST 12 LDS W/I&R Pam Reddy MD [address], [address] [place] [address] [facility] [place] [address] [place] [address] Referral ID Status Reason Start Date Expiration Date Visits Requested Visits Authorized [id number] Pending Review Auto-Generat ed Referral 03/21/2024 03/21/2025 1 1 [facility] for referral (narrative)* Diagnostic Procedure Only (Routine) - Authorized Specialty Diagnoses / Procedures Referred By Contac t Referred To Contact [facility] Diagnoses Renal insufficiency Procedures US KIDNEY/BLADDER US RETROPERITONEAL REAL TIME W/IMAGE COMPLETE Guanakito Reno MD [address] [place] [address] [place] [address] Referral ID Status Reason Start Date Expiration Date Visits Requested Visits Authorized [id number] Authorized Auto-Generat ed Referral 03/26/2024 04/25/2025 1 1 * Outpatient Procedure (Routine) - Pending Review Specialty Diagnoses / Procedures Referred By Contac t Referred [facility] Diagnoses History of carotid endarterectomy Procedures US CAROTID ARTERIES GRAY VAS LAB DUPLEX SCAN EXTRACRANIAL ART COMPL BI STUDY Guanakito Reno MD [address] [place] [address] [facility] [place] [address] [place] [address] Referral ID Status Reason Start Date Expiration Date Visits Requested Visits Authorized [id number] Pending Review Auto-Generat ed Referral 03/26/2024 03/26/2025 1 1 [facility] for referral (narrative)* Diagnostic Procedure Only (Routine) - Closed Specialty Diagnoses / Procedures Referred By Juveac t Referred To Contact [facility] Diagnoses Renal insufficiency Procedures US KIDNEY/BLADDER US RETROPERITONEAL REAL TIME W/IMAGE COMPLETE Guanakito Reno MD [address] [place] [address] [place] [address] Referral ID Status Reason Start Date Expiration Date V isits Requested Visits Authorized [id number] Closed Auto-Generate d Referral 03/26/2024 04/25/2025 1 1 [facility] for referral (narrative)* Diagnostic Procedure Only (Routine) - New Request Specialty Diagnoses / Procedures Referred By Anival t Referred To Contact [facility] Diagnoses Bilateral carotid artery stenosis History of carotid endarterectomy Procedures US CAROTID BILATERAL Laura Iraheta MD [address] [facility] [address] [place] [address] [place] [address] Referral ID Status Reason Start Date Expiration Date Visits Requested Visits Authorized [id number] New Request Auto-Generat ed Referral 09/05/2025 1 1 [facility] Summary Purpose Family History No Family History [...] Diagnoses Mixed dementia (HCC) Guanakito Reno MD [address] [place] [address] Referral ID Status Reason Start Date Expiration Date Visits Re quested Visits Authorized [id number] Closed 1 1 Referral ID Status Reason Start Date Expiration Date Visits Re quested Visits Authorized [id number] Closed 1 1 Specialty Diagnoses / Procedures Referred By Contac t Referred To Contact Podiatry Diagnoses Onychomycosis Procedures CONSULT TO PODIATRY OFFICE/OUTPATIENT [facility] 60-74 MINUTES Guanakito Reno MD [address] [place] [id number] Referral ID Status Reason Start Date Expiration Date Visits Requested Visits Authorized [id number] Pending Review PCP Requested Referral 3 08/13/2024 1 1 Specialty Diagnoses / Procedures Referred By Contac t Referred To Contact Nephrology Diagnoses CKD (chronic kidney disease) stage 4, 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/min ([facility]) Anemia, unspecified type Procedures CONSULT TO NEPHROLOGY OFFICE/OUTPATIENT [facility] 60 MINUTES Guanakito Reno MD [address] [place] [id number] Referral ID Status Reason Start Date Expiration Date Visits Requested Visits Authorized [id number] Authorized PCP Requested Referral 04/05/2024 04/05/2025 1 1 Specialty Diagnoses / Procedures Referred By Contac t Referred To Contact Vascular Surgery Diagnoses Stenosis of left carotid artery Procedures CONSULT TO VASCULAR SURGERY OFFICE/OUTPATIENT [facility] MDM 60 MINUTES Josselyn Mayer, LEDGER CLERK.[employer] [address] [place] [address] Laura Iraheta MD [address] [place] [address] Referral ID Status Reason Start Date Expiration Date Visits Requested Visits Authorized [id number] Authorized PCP Requested Referral 07/10/2024 07/10/2025 1 1 Specialty Diagnoses / Procedures Referred By Contac t Referred To Contact Nephrology Diagnoses Chronic kidney disease, unspecified CKD stage Anemia in chronic kidney disease, unspecified CKD stage Procedures CONSULT TO NEPHROLOGY Josselyn Mayer, LEDGER CLERK.[facility] [address] [facility] [address] [place] [id number] Eladio Remy MD [address] [place] [address] Referral ID Status Reason Start Date Expiration Date Visits Requested Visits Authorized [id number] Ref Not Required PCP Requested Referral 07/10/2024 07/10/2025 1 1 Specialty Diagnoses / Procedures Referred By Contac t Referred To Contact Gerontology Diagnoses Dementia, unspecified dementia severity, unspecified dementia type, unspecified whether behavioral, psychotic, or mood disturbance or anxiety (HCC) Procedures CONSULT TO GERIATRICS OFFICE/OUTPATIENT [facility] 60 MINUTES Josselyn Mayer, LEDGER CLERK.[place] [address] [address] [facility] [address] [address] Referral ID Status Reason Start Date Expiration Date Visits Requested Visits Authorized [id number] Authorized PCP Requested Referral 07/10/2024 07/10/2025 1 1 Specialty Diagnoses / Procedures Referred By Contac t Referred To Contact CT IMAGING Diagnoses Nonrheumatic aortic valve stenosis Encounter for preprocedural cardiovascular examination Procedures CTA CHEST (GATED) WO/W IVCON CT ANGIOGRAPHY CHEST W/CONTRAST/NONCONTRAST Josselyn Mayer, LEDGER CLERK.[facility] [address] [place] [phone] Fax: Ct Imaging [id number] Referral ID Status Reason Start Date Expiration Date Visits Requested Visits Authorized [id number] Authorized Auto-Generat ed Referral 07/10/2024 08/09/2025 1 1 Specialty Diagnoses / Procedures Referred By Contac t Referred To Contact CT IMAGING Diagnoses Nonrheumatic aortic valve stenosis Encounter for preprocedural cardiovascular examination Procedures CTA ABD/PEL W IVCON CT ANGIO ABD&PLVIS CNTRST MTRL W/WO CNTRST IMGES Josselyn Mayer, LEDGER CLERK.[facility] [address] [place] [address] [phone] [place] [id number] Referral ID Status Reason Start Date Expiration Date Visits Requested Visits Authorized [id number] Authorized Auto-Generat ed Referral 07/10/2024 08/09/2025 1 1 Referral ID Status Reason Start Date Expiration Date V isits Requested Visits Authorized [id number] Closed Auto-Generate d Referral 07/10/2024 08/09/2025 1 1 Referral ID Status Reason Start Date Expiration Date V isits Requested Visits Authorized [id number] Closed Auto-Generate d Referral 07/10/2024 08/09/2025 1 [...] 12:30pm LABWORK April 17, 2025 5:00a m LONG TERM LAB WORK April 24, 2025 5: 00am LONG TERM LAB WORK April 29, 2025 6: 45am LONG TERM LAB WORK May 01, 2025 5: 15am RIGHT HUMERUS May 02, 2025 10:1 1am Room 1 May 02, 2025 10:2 9am LONG TERM LAB WORK May 06, 2025 4: 00am LONG TERM LAB WORK May 08, 2025 5: 00am LONG TERM LAB WORK May 13, 2025 5: 00am LONG TERM LAB WORK May 15, 2025 5: 00am LONG TERM LAB WORK May 20, 2025 4 :00am [...] and content) DATE CREATED AUTHOR 04/06/2018 [facility] DATE CREATED AUTHOR AUTHOR'S ORGANIZ ATION 08/03/2025 [facility] DATE CREATED AUTHOR AUTHOR'S ORGANIZ ATION 08/12/2025 [facility] DATE CREATED AUTHOR AUTHOR'S ORGANIZ ATION 08/27/2025 [facility] Comments (unrecognize d section and content) In the event this informatio n is protected by the Federal Confidentiality of Alcohol and Drug Abuse Patient Records regulations: The Federal rules restrict any use of the information to criminally investigate or prosecute any alcohol or drug abuse patient.[facility] the event this information is protected by the Federal Confidentiality of Alcohol and Drug Abuse Patient Records regulations: The Federal rules restrict any use of the information to criminally investigate or prosecute any alcohol or drug abuse patient.[facility]In the event this information is protected by the Federal Confidentiality of Alcohol and Drug Abuse Patient Records regulations: The Federal rules restrict any use of the information to criminally investigate or prosecute any alcohol or drug abuse patient.[facility]In the event this information is protected by the Federal Confidentiality of Alcohol and Drug Abuse Patient Records regulations: The Federal rules restrict any use of the information to criminally investigate or prosecute any alcohol or drug abuse patient.[facility]In the event this information is protected by the Federal Confidentiality of Alcohol and Drug Abuse Patient Records regulations: The Federal rules restrict any use of the information to criminally investigate or prosecute any alcohol or drug abuse patient.[facility]In the event this information is protected by the Federal Confidentiality of Alcohol and Drug Abuse Patient Records regulations: The Federal rules restrict any use of the information to criminally investigate or prosecute any alcohol or drug abuse patient.[facility]In the event this information is protected by the Federal Confidentiality of Alcohol and Drug Abuse Patient Records regulations: The Federal rules restrict any use of the information to criminally investigate or prosecute any alcohol or drug abuse patient.[facility]In the event this information is protected by the Federal Confidentiality of Alcohol and Drug Abuse Patient Records regulations: The Federal rules restrict any use of the information to criminally investigate or prosecute any alcohol or drug abuse patient.[facility]In the event this information is protected by the Federal Confidentiality of Alcohol and Drug Abuse Patient Records regulations: The Federal rules restrict any use of the information to criminally investigate or prosecute any alcohol or drug abuse patient.[facility]In the event this information is protected by the Federal Confidentiality of Alcohol and Drug Abuse Patient Records regulations: The Federal rules restrict any use of the information to criminally investigate or prosecute any alcohol or drug abuse patient.[facility]In the event this information is protected by the Federal Confidentiality of Alcohol and Drug Abuse Patient Records regulations: The Federal rules restrict any use of the information to criminally investigate or prosecute any alcohol or drug abuse patient.[facility]In the event this information is protected by the Federal Confidentiality of Alcohol and Drug Abuse Patient Records regulations: The Federal rules restrict any use of the information to criminally investigate or prosecute any alcohol or drug abuse patient.[facility]In the event this information is protected by the Federal Confidentiality of Alcohol and Drug Abuse Patient Records regulations: The Federal rules restrict any use of the information to criminally investigate or prosecute any alcohol or drug abuse patient.[facility]In the event this information is protected by the Federal Confidentiality of Alcohol and Drug Abuse Patient Records regulations: The Federal rules restrict any use of the information to criminally investigate or prosecute any alcohol or drug abuse patient.[facility]In the event this information is protected by the Federal Confidentiality of Alcohol and Drug Abuse Patient Records regulations: The Federal rules restrict any use of the information to criminally investigate or prosecute any alcohol or drug abuse patient.[facility]In the event this information is protected by the Federal Confidentiality of Alcohol and Drug Abuse Patient Records regulations: The Federal rules restrict any use of the information to criminally investigate or prosecute any alcohol or drug abuse patient.[facility]In the event this information is protected by the Federal Confidentiality of Alcohol and Drug Abuse Patient Records regulations: The Federal rules restrict any use of the information to criminally investigate or prosecute any alcohol or drug abuse patient.[facility]In the event this information is protected by the Federal Confidentiality of Alcohol and Drug Abuse Patient Records regulations: The Federal rules restrict any use of the information to criminally investigate or prosecute any alcohol or drug abuse patient.[facility]In the event this information is protected by the Federal Confidentiality of Alcohol and Drug Abuse Patient Records regulations: The Federal rules restrict any use of the information to criminally investigate or prosecute any alcohol or drug abuse patient.[facility]In the event this information is protected by the Federal Confidentiality of Alcohol and Drug Abuse Patient Records regulations: The Federal rules restrict any use of the information to criminally investigate or prosecute any alcohol or drug abuse patient.[facility]In the event this information is protected by the Federal Confidentiality of Alcohol and Drug Abuse Patient Records regulations: The Federal rules restrict any use of the information to criminally investigate or prosecute any alcohol or drug abuse patient.[facility]In the event this information is protected by the Federal Confidentiality of Alcohol and Drug Abuse Patient Records regulations: The Federal rules restrict any use of the information to criminally investigate or prosecute any alcohol or drug abuse patient.[facility]In the event this information is protected by the Federal Confidentiality of Alcohol and Drug Abuse Patient Records regulations: The Federal rules restrict any use of the information to criminally investigate or prosecute any alcohol or drug abuse patient.[facility]In the event this information is protected by the Federal Confidentiality of Alcohol and Drug Abuse Patient Records regulations: The Federal rules restrict any use of the information to criminally investigate or prosecute any alcohol or drug abuse patient.[facility]In the event this information is protected by the Federal Confidentiality of Alcohol and Drug Abuse Patient Records regulations: The Federal rules restrict any use of the information to criminally investigate or prosecute any alcohol or drug abuse patient.[facility]In the event this information is protected by the Federal Confidentiality of Alcohol and Drug Abuse Patient Records regulations: The Federal rules restrict any use of the information to criminally investigate or prosecute any alcohol or drug abuse patient.[facility]In the event this information is protected by the Federal Confidentiality of Alcohol and Drug Abuse Patient Records regulations: The Federal rules restrict any use of the information to criminally investigate or prosecute any alcohol or drug abuse patient.[facility]In the event this information is protected by the Federal Confidentiality of Alcohol and Drug Abuse Patient Records regulations: The Federal rules restrict any use of the information to criminally investigate or prosecute any alcohol or drug abuse patient.[facility]In the event this information is protected by the Federal Confidentiality of Alcohol and Drug Abuse Patient Records regulations: The Federal rules restrict any use of the information to criminally investigate or prosecute any alcohol or drug abuse patient.[facility]In the event this information is protected by the Federal Confidentiality of Alcohol and Drug Abuse Patient Records regulations: The Federal rules restrict any use of the information to criminally investigate or prosecute any alcohol or drug abuse patient.[facility]In the event this information is protected by the Federal Confidentiality of Alcohol and Drug Abuse Patient Records regulations: The Federal rules restrict any use of the information to criminally investigate or prosecute any alcohol or drug abuse patient.[facility]In the event this information is protected by the Federal Confidentiality of Alcohol and Drug Abuse Patient Records regulations: The Federal rules restrict any use of the information to criminally investigate or prosecute any alcohol or drug abuse patient.[facility]In the event this information is protected by the Federal Confidentiality of Alcohol and Drug Abuse Patient Records regulations: The Federal rules restrict any use of the information to criminally investigate or prosecute any alcohol or drug abuse patient.[facility]In the event this information is protected by the Federal Confidentiality of Alcohol and Drug Abuse Patient Records regulations: The Federal rules restrict any use of the information to criminally investigate or prosecute any alcohol or drug abuse patient.[facility]In the event this information is protected by the Federal Confidentiality of Alcohol and Drug Abuse Patient Records regulations: The Federal rules restrict any use of the information to criminally investigate or prosecute any alcohol or drug abuse patient.[facility]In the event this information is protected by the Federal Confidentiality of Alcohol and Drug Abuse Patient Records regulations: The Federal rules restrict any use of the information to criminally investigate or prosecute any alcohol or drug abuse patient.[facility]In the event this information is protected by the Federal Confidentiality of Alcohol and Drug Abuse Patient Records regulations: The Federal rules restrict any use of the information to criminally investigate or prosecute any alcohol or drug abuse patient.[facility]In the event this information is protected by the Federal Confidentiality of Alcohol and Drug Abuse Patient Records regulations: The Federal rules restrict any use of the information to criminally investigate or prosecute any alcohol or drug abuse patient.[facility]In the event this information is protected by the Federal Confidentiality of Alcohol and Drug Abuse Patient Records regulations: The Federal rules restrict any use of the information to criminally investigate or prosecute any alcohol or drug abuse patient.[facility]In the event this information is protected by the Federal Confidentiality of Alcohol and Drug Abuse Patient Records regulations: The Federal rules restrict any use of the information to criminally investigate or prosecute any alcohol or drug abuse patient.[facility]In the event this information is protected by the Federal Confidentiality of Alcohol and Drug Abuse Patient Records regulations: The Federal rules restrict any use of the information to criminally investigate or prosecute any alcohol or drug abuse patient.[facility]In the event this information is protected by the Federal Confidentiality of Alcohol and Drug Abuse Patient Records regulations: The Federal rules restrict any use of the information to criminally investigate or prosecute any alcohol or drug abuse patient.[facility]In the event this information is protected by the Federal Confidentiality of Alcohol and Drug Abuse Patient Records regulations: The Federal rules restrict any use of the information to criminally investigate or prosecute any alcohol or drug abuse patient.[facility]In the event this information is protected by the Federal Confidentiality of Alcohol and Drug Abuse Patient Records regulations: The Federal rules restrict any use of the information to criminally investigate or prosecute any alcohol or drug abuse patient.[facility]In the event this information is protected by the Federal Confidentiality of Alcohol and Drug Abuse Patient Records regulations: The Federal rules restrict any use of the information to criminally investigate or prosecute any alcohol or drug abuse patient.[facility]In the event this information is protected by the Federal Confidentiality of Alcohol and Drug Abuse Patient Records regulations: The Federal rules restrict any use of the information to criminally investigate or prosecute any alcohol or drug abuse patient.[facility]In the event this information is protected by the Federal Confidentiality of Alcohol and Drug Abuse Patient Records regulations: The Federal rules restrict any use of the information to criminally investigate or prosecute any alcohol or drug abuse patient.[facility]In the event this information is protected by the Federal Confidentiality of Alcohol and Drug Abuse Patient Records regulations: The Federal rules restrict any use of the information to criminally investigate or prosecute any alcohol or drug abuse patient.[facility]In the event this information is protected by the Federal Confidentiality of Alcohol and Drug Abuse Patient Records regulations: The Federal rules restrict any use of the information to criminally investigate or prosecute any alcohol or drug abuse patient.[facility]In the event this information is protected by the Federal Confidentiality of Alcohol and Drug Abuse Patient Records regulations: The Federal rules restrict any use of the information to criminally investigate or prosecute any alcohol or drug abuse patient.[facility]In the event this information is protected by the Federal Confidentiality of Alcohol and Drug Abuse Patient Records regulations: The Federal rules restrict any use of the information to criminally investigate or prosecute any alcohol or drug abuse patient.[facility]In the event this information is protected by the Federal Confidentiality of Alcohol and Drug Abuse Patient Records regulations: The Federal rules restrict any use of the information to criminally investigate or prosecute any alcohol or drug abuse patient.[facility]In the event this information is protected by the Federal Confidentiality of Alcohol and Drug Abuse Patient Records regulations: The Federal rules restrict any use of the information to criminally investigate or prosecute any alcohol or drug abuse patient.[facility]In the event this information is protected by the Federal Confidentiality of Alcohol and Drug Abuse Patient Records regulations: The Federal rules restrict any use of the information to criminally investigate or prosecute any alcohol or drug abuse patient.[facility]In the event this information is protected by the Federal Confidentiality of Alcohol and Drug Abuse Patient Records regulations: The Federal rules restrict any use of the information to criminally investigate or prosecute any alcohol or drug abuse patient.[facility]In the event this information is protected by the Federal Confidentiality of Alcohol and Drug Abuse Patient Records regulations: The Federal rules restrict any use of the information to criminally investigate or prosecute any alcohol or drug abuse patient.[facility]In the event this information is protected by the Federal Confidentiality of Alcohol and Drug Abuse Patient Records regulations: The Federal rules restrict any use of the information to criminally investigate or prosecute any alcohol or drug abuse patient.[facility]In the event this information is protected by the Federal Confidentiality of Alcohol and Drug Abuse Patient Records regulations: The Federal rules restrict any use of the information to criminally investigate or prosecute any alcohol or drug abuse patient.[facility]In the event this information is protected by the Federal Confidentiality of Alcohol and Drug Abuse Patient Records regulations: The Federal rules restrict any use of the information to criminally investigate or prosecute any alcohol or drug abuse patient.[facility]In the event this information is protected by the Federal Confidentiality of Alcohol and Drug Abuse Patient Records regulations: The Federal rules restrict any use of the information to criminally investigate or prosecute any alcohol or drug abuse patient.[facility]In the event this information is protected by the Federal Confidentiality of Alcohol and Drug Abuse Patient Records regulations: The Federal rules restrict any use of the information to criminally investigate or prosecute any alcohol or drug abuse patient.[facility]In the event this information is protected by the Federal Confidentiality of Alcohol and Drug Abuse Patient Records regulations: The Federal rules restrict any use of the information to criminally investigate or prosecute any alcohol or drug abuse patient.[facility]In the event this information is protected by the Federal Confidentiality of Alcohol and Drug Abuse Patient Records regulations: The Federal rules restrict any use of the information to criminally investigate or prosecute any alcohol or drug abuse patient.[facility]In the event this information is protected by the Federal Confidentiality of Alcohol and Drug Abuse Patient Records regulations: The Federal rules restrict any use of the information to criminally investigate or prosecute any alcohol or drug abuse patient.[facility]In the event this information is protected by the Federal Confidentiality of Alcohol and Drug Abuse Patient Records regulations: The Federal rules restrict any use of the information to criminally investigate or prosecute any alcohol or drug abuse patient.[facility]In the event this information is protected by the Federal Confidentiality of Alcohol and Drug Abuse Patient Records regulations: The Federal rules restrict any use of the information to criminally investigate or prosecute any alcohol or drug abuse patient.[facility]In the event this information is protected by the Federal Confidentiality of Alcohol and Drug Abuse Patient Records regulations: The Federal rules restrict any use of the information to criminally investigate or prosecute any alcohol or drug abuse patient.[facility]In the event this information is protected by the Federal Confidentiality of Alcohol and Drug Abuse Patient Records regulations: The Federal rules restrict any use of the information to criminally investigate or prosecute any alcohol or drug abuse patient.[facility]In the event this information is protected by the Federal Confidentiality of Alcohol and Drug Abuse Patient Records regulations: The Federal rules restrict any use of the information to criminally investigate or prosecute any alcohol or drug abuse patient.[facility]In the event this information is protected by the Federal Confidentiality of Alcohol and Drug Abuse Patient Records regulations: The Federal rules restrict any use of the information to criminally investigate or prosecute any alcohol or drug abuse patient.[facility]In the event this information is protected by the Federal Confidentiality of Alcohol and Drug Abuse Patient Records regulations: The Federal rules restrict any use of the information to criminally investigate or prosecute any alcohol or drug abuse patient.[facility]In the event this information is protected by the Federal Confidentiality of Alcohol and Drug Abuse Patient Records regulations: The Federal rules restrict any use of the information to criminally investigate or prosecute any alcohol or drug abuse patient.[facility]In the event this information is protected by the Federal Confidentiality of Alcohol and Drug Abuse Patient Records regulations: The Federal rules restrict any use of the information to criminally investigate or prosecute any alcohol or drug abuse patient.[facility]In the event this information is protected by the Federal Confidentiality of Alcohol and Drug Abuse Patient Records regulations: The Federal rules restrict any use of the information to criminally investigate or prosecute any alcohol or drug abuse patient.[facility]In the event this information is protected by the Federal Confidentiality of Alcohol and Drug Abuse Patient Records regulations: The Federal rules restrict any use of the information to criminally investigate or prosecute any alcohol or drug abuse patient.[facility]In the event this information is protected by the Federal Confidentiality of Alcohol and Drug Abuse Patient Records regulations: The Federal rules restrict any use of the information to criminally investigate or prosecute any alcohol or drug abuse patient.[facility]In the event this information is protected by the Federal Confidentiality of Alcohol and Drug Abuse Patient Records regulations: The Federal rules restrict any use of the information to criminally investigate or prosecute any alcohol or drug abuse patient.[facility]In the event this information is protected by the Federal Confidentiality of Alcohol and Drug Abuse Patient Records regulations: The Federal rules restrict any use of the information to criminally investigate or prosecute any alcohol or drug abuse patient.[facility]In the event this information is protected by the Federal Confidentiality of Alcohol and Drug Abuse Patient Records regulations: The Federal rules restrict any use of the information to criminally investigate or prosecute any alcohol or drug abuse patient.[facility]In the event this information is protected by the Federal Confidentiality of Alcohol and Drug Abuse Patient Records regulations: The Federal rules restrict any use of the information to criminally investigate or prosecute any alcohol or drug abuse patient.[facility]In the event this information is protected by the Federal Confidentiality of Alcohol and Drug Abuse Patient Records regulations: The Federal rules restrict any use of the information to criminally investigate or prosecute any alcohol or drug abuse patient.[facility]In the event this information is protected by the Federal Confidentiality of Alcohol and Drug Abuse Patient Records regulations: The Federal rules restrict any use of the information to criminally investigate or prosecute any alcohol or drug abuse patient.[facility]In the event this information is protected by the Federal Confidentiality of Alcohol and Drug Abuse Patient Records regulations: The Federal rules restrict any use of the information to criminally investigate or prosecute any alcohol or drug abuse patient.OhiohealthIn the event this information is protected by the Federal Confidentiality of Alcohol and Drug Abuse Patient Records regulations: The Federal rules restrict any use of the information to criminally investigate or prosecute any alcohol or drug abuse patient.OhiohealthIn the event this information is protected by the Federal Confidentiality of Alcohol and Drug Abuse Patient Records regulations: The Federal rules restrict any use of the information to criminally investigate or prosecute any alcohol or drug abuse patient.[facility]healthIn the event this information is protected by the Federal Confidentiality of Alcohol and Drug Abuse Patient Records regulations: The Federal rules restrict any use of the information to criminally investigate or prosecute any alcohol or drug abuse patient.OhiohealthIn the event this information is protected by the Federal Confidentiality of Alcohol and Drug Abuse Patient Records regulations: The Federal rules restrict any use of the information to criminally investigate or prosecute any alcohol or drug abuse patient.[facility]healthIn the event this information is protected by the Federal Confidentiality of Alcohol and Drug Abuse Patient Records regulations: The Federal rules restrict any use of the information to criminally investigate or prosecute any alcohol or drug abuse patient.[facility]healthIn the event this information is protected by the Federal Confidentiality of Alcohol and Drug Abuse Patient Records regulations: The Federal rules restrict any use of the information to criminally investigate or prosecute any alcohol or drug abuse patient.[facility]healthIn the event this information is protected by the Federal Confidentiality of Alcohol and Drug Abuse Patient Records regulations: The Federal rules restrict any use of the information to criminally investigate or prosecute any alcohol or drug abuse patient.[facility]healthIn the event this information is protected by the Federal Confidentiality of Alcohol and Drug Abuse Patient Records regulations: The Federal rules restrict any use of the information to criminally investigate or prosecute any alcohol or drug abuse patient.OhiohealthIn the event this information is protected by the Federal Confidentiality of Alcohol and Drug Abuse Patient Records regulations: The Federal rules restrict any use of the information to criminally investigate or prosecute any alcohol or drug abuse patient.[facility]healthIn the event this information is protected by the Federal Confidentiality of Alcohol and Drug Abuse Patient Records regulations: The Federal rules restrict any use of the information to criminally investigate or prosecute any alcohol or drug abuse patient.[facility]healthIn the event this information is protected by the Federal Confidentiality of Alcohol and Drug Abuse Patient Records regulations: The Federal rules restrict any use of the information to criminally investigate or prosecute any alcohol or drug abuse patient.OhiohealthIn the event this information is protected by the Federal Confidentiality of Alcohol and Drug Abuse Patient Records regulations: The Federal rules restrict any use of the information to criminally investigate or prosecute any alcohol or drug abuse patient.OhiohealthIn the event this information is protected by the Federal Confidentiality of Alcohol and Drug Abuse Patient Records regulations: The Federal rules restrict any use of the information to criminally investigate or prosecute any alcohol or drug abuse patient.OhiohealthIn the event this information is protected by the Federal Confidentiality of Alcohol and Drug Abuse Patient Records regulations: The Federal rules restrict any use of the information to criminally investigate or prosecute any alcohol or drug abuse patient.OhiohealthIn the event this information is protected by the Federal Confidentiality of Alcohol and Drug Abuse Patient Records regulations: The Federal rules restrict any use of the information to criminally investigate or prosecute any alcohol or drug abuse patient.[facility]healthIn the event this information is protected by the Federal Confidentiality of Alcohol and Drug Abuse Patient Records regulations: The Federal rules restrict any use of the information to criminally investigate or prosecute any alcohol or drug abuse patient.OhiohealthIn the event this information is protected by the Federal Confidentiality of Alcohol and Drug Abuse Patient Records regulations: The Federal rules restrict any use of the information to criminally investigate or prosecute any alcohol or drug abuse patient.OhiohealthIn the event this information is protected by the Federal Confidentiality of Alcohol and Drug Abuse Patient Records regulations: The Federal rules restrict any use of the information to criminally investigate or prosecute any alcohol or drug abuse patient.OhiohealthIn the event this information is protected by the Federal Confidentiality of Alcohol and Drug Abuse Patient Records regulations: The Federal rules restrict any use of the information to criminally investigate or prosecute any alcohol or drug abuse patient.OhiohealthIn the event this information is protected by the Federal Confidentiality of Alcohol and Drug Abuse Patient Records regulations: The Federal rules restrict any use of the information to criminally investigate or prosecute any alcohol or drug abuse patient.[facility]healthIn the event this information is protected by the Federal Confidentiality of Alcohol and Drug Abuse Patient Records regulations: The Federal rules restrict any use of the information to criminally investigate or prosecute any alcohol or drug abuse patient.OhiohealthIn the event this information is protected by the Federal Confidentiality of Alcohol and Drug Abuse Patient Records regulations: The Federal rules restrict any use of the information to criminally investigate or prosecute any alcohol or drug abuse patient.OhiohealthIn the event this information is protected by the Federal Confidentiality of Alcohol and Drug Abuse Patient Records regulations: The Federal rules restrict any use of the information to criminally investigate or prosecute any alcohol or drug abuse patient.OhiohealthIn the event this information is protected by the Federal Confidentiality of Alcohol and Drug Abuse Patient Records regulations: The Federal rules restrict any use of the information to criminally investigate or prosecute any alcohol or drug abuse patient.OhiohealthIn the event this information is protected by the Federal Confidentiality of Alcohol and Drug Abuse Patient Records regulations: The Federal rules restrict any use of the information to criminally investigate or prosecute any alcohol or drug abuse patient.OhiohealthIn the event this information is protected by the Federal Confidentiality of Alcohol and Drug Abuse Patient Records regulations: The Federal rules restrict any use of the information to criminally investigate or prosecute any alcohol or drug abuse patient.OhiohealthIn the event this information is protected by the Federal Confidentiality of Alcohol and Drug Abuse Patient Records regulations: The Federal rules restrict any use of the information to criminally investigate or prosecute any alcohol or drug abuse patient.OhiohealthIn the event this information is protected by the Federal Confidentiality of Alcohol and Drug Abuse Patient Records regulations: The Federal rules restrict any use of the information to criminally investigate or prosecute any alcohol or drug abuse patient.[facility] Reason for Visit (unrecogniz ed section and content) Reason Comments Follow Up Specialty Diagnoses / Procedures Referred By Anival aden Referred To Contact Family Practice / FAMILY MEDICINE Diagnoses Follow up/not seen since 02/2020 Procedures 4C EST Self Corrina Lennon APRN.BINGO FLOATER [address] [place] [address] Referral ID Status Reason Start Date Expiration Date V isits Requested Visits Authorized [id number] Closed Patient Cleared - INN Insurance Found [...] Date Comments Population Health Navigation Outreach 06/14/2022 [facility] care gaps Reason Onset Date Comments Anticoagulation 06/06/2022 Home INR Reason Onset Date Comments Anticoagulation 2022 INR result Reason Onset Date Comments Refill Request 07/22/2022 Reason Onset Date Comments Anticoagulation Telephone Fu 08/01/2022 Gabrielle e INR Result Reason Comments Consult Specialty Diagnoses / Procedures Referred By Anival aden Referred To Contact Cardiology / CARD ADMIN [facility] Diagnoses Paroxysmal atrial fibrillation (HCC) Nonrheumatic aortic valve stenosis Procedures CONSULT TO CARDIOLOGY OFFICE/OUTPATIENT [facility] 60-74 MINUTES Corrina Lennon, ÁLVARO.BINGO FLOATER [address] [place] [address] Card Admin [facility] [address] [place] [address] Referral ID Status Reason Start Date Expiration Date V isits Requested Visits Authorized [id number] Closed PCP Requested Referral 02/28/2022 10/15/2022 1 [...] INR Result Reason Onset Date Comments [facility] RN 2023 Medication Ad herence review per request of payer Reason Onset Date Comments Refill Request 07/04/2023 Reason Comments 6 Month Exam Reason Comments Results Reason Onset Date Comments [facility] RN 09/05/2023 Medication Ad herence review per [...] Telephone Fu 03/07/2024 Reason Onset Date Comments [facility] RN 03/08/2024 Medication ad herence and suspected [...] REAL TIME W/IMAGE COMPLETE Guanakito Reno MD [address] [place] [address] [place] [address] Referral ID Status Reason Start Date Expiration Date V isits Requested Visits Authorized [id number] Closed Auto-Generate d Referral 03/26/2024 04/25/2025 1 1 Reason Comments Follow Up htn- ultrasound on k idneys and labs, family worried about falls Reason Comments Threader - Other Reason Comments Edema Bilateral leg [...] 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 Or [employer] [address] [place] [address] Referral ID Status Reason Start Date Expiration Date Visits Re quested Visits Authorized [id number] 1 1 Reason Onset Date Comments Anticoagulation [...] e INR Result Reason Comments Faxed to [facility] Reason Onset Date Comments Refill Request 04/08/2025 Reason Comments Patient Question Care Teams (unrecognized sec tion and content) Library Technology Instructor Relationship Specialty Start Date End Date Guanakito Reno MD [address] [place] [address] PCP - General Family Practice 05/24/18 13, Pharmacist [id number] [place] [address] Pharmacist Pharmacy 05/31/21 Library Technology Instructor Relationship Specialty Start Date End Date Guanakito Reno MD [address] [facility] [place] [address] PCP - General Family Practice 05/24/18 13, Pharmacist [phone] [place] [address] Pharmacist Pharmacy 05/31/21 Library Technology Instructor Relationship Specialty Start Date End Date Guanakito Reno MD [address] [place] [address] PCP - General Family Practice 05/24/18 13, Pharmacist [phone] [place] [address] Pharmacist Pharmacy 05/31/21 Library Technology Instructor Relationship Specialty Start Date End Date Guanakito Reno MD [address] [place] [address] PCP - General Family Practice 05/24/18 13, Pharmacist [phone] [place] [address] Pharmacist Pharmacy 05/31/21 Library Technology Instructor Relationship Specialty Start Date End Date Guanakito Reno MD [address] [place] [address] PCP - General Family Practice 05/24/18 13, Pharmacist [phone] [place] [address] Pharmacist Pharmacy 05/31/21 Library Technology Instructor Relationship Specialty Start Date End Date Guanakito Reno MD [address] [place] [address] PCP - General Family Practice 05/24/18 13, Pharmacist [id number] [place] [address] Pharmacist Pharmacy 05/31/21 Library Technology Instructor Relationship Specialty Start Date End Date Guanakito Reno MD [address] [place] [address] PCP - General Family Practice 05/24/18 13, Pharmacist [address] [place] [address] Pharmacist Pharmacy 05/31/21 Library Technology Instructor Relationship Specialty Start Date End Date Guanakito Reno MD [address] [place] [address] PCP - General Family Practice 05/24/18 13, Pharmacist [phone] [place] [address] Pharmacist Pharmacy 05/31/21 Library Technology Instructor Relationship Specialty Start Date End Date Guanakito Reno MD [address] [place] [address] PCP - General Family Practice 05/24/18 13, Pharmacist [phone] [place] [address], [place] [address] Pharmacist Pharmacy 05/31/21 Library Technology Instructor Relationship Specialty Start Date End Date Guanakito Reno MD [address] [place] [address] PCP - General Family Medicine 05/24/18 13, Pharmacist [address] [place] [address] Pharmacist Pharmacy 05/31/21 Library Technology Instructor Relationship Specialty Start Date End Date Guanakito Reno MD [address] [place] [address] PCP - General Family Medicine 05/24/18 13, Pharmacist [address] [place] [address] Pharmacist Pharmacy 05/31/21 Library Technology Instructor Relationship Specialty Start Date End Date Guanakito Reno MD [address] [place] [address] PCP - General Family Medicine 05/24/18 13, Pharmacist [phone] [place] [address] Pharmacist Pharmacy 05/31/21 Library Technology Instructor Relationship Specialty Start Date End Date Guanakito Reno MD [address] [place] [address] PCP - General Family Medicine 05/24/18 13, Pharmacist [id number] [place] [address] Pharmacist Pharmacy 05/31/21 Library Technology Instructor Relationship Specialty Start Date End Date Guanakito Reno MD [address] [place] [address] PCP - General Family Medicine 05/24/18 13, Pharmacist [phone] [place] [address] Pharmacist Pharmacy 05/31/21 Library Technology Instructor Relationship Specialty Start Date End Date Guanakito Reno MD [address] [place] [address] PCP - General Family Medicine 05/24/18 13, Pharmacist [phone] [place] [address] Pharmacist Pharmacy 05/31/21 Library Technology Instructor Relationship Specialty Start Date End Date Guanakito Reno MD [address] [place] [address] PCP - General Family Medicine 05/24/18 13, Pharmacist [phone] [place] [address] Pharmacist Pharmacy 05/31/21 Library Technology Instructor Relationship Specialty Start Date End Date Guanakito Reno MD [address] [place] [address] PCP - General Family Medicine 05/24/18 13, Pharmacist [phone] [place] [address] Pharmacist Pharmacy 05/31/21 Library Technology Instructor Relationship Specialty Start Date End Date Guanakito Reno MD [address] [place] [address] PCP - General Family Medicine 05/24/18 13, Pharmacist [phone] [place] [address] Pharmacist Pharmacy 05/31/21 Library Technology Instructor Relationship Specialty Start Date End Date Guanakito Reno MD [address] [facility] [place] [address] PCP - General Family Medicine 05/24/18, Pharmacist [address] [place] [address] Pharmacist Pharmacy 05/31/21 Library Technology Instructor Relationship Specialty Start Date End Date Guanakito Reno MD [address] [place] [address] PCP - General Family Medicine 05/24/18, Pharmacist [phone] [place] [address] Pharmacist Pharmacy 05/31/21 Library Technology Instructor Relationship Specialty Start Date End Date Guanakito Reno MD [address] [place] [address] PCP - General Family Medicine 05/24/18, Pharmacist [phone] [place] [address] Pharmacist Pharmacy 05/31/21 Library Technology Instructor Relationship Specialty Start Date End Date Guanakito Reno MD [address] [place] [address] PCP - General Family Medicine 05/24/18, Pharmacist [phone] [place] [address] Pharmacist Pharmacy 05/31/21 Library Technology Instructor Relationship Specialty Start Date End Date Guanakito Reno MD [address] [place] [address] PCP - General Family Medicine 05/24/18 13, Pharmacist [phone] [place] [address] Pharmacist Pharmacy 05/31/21 Library Technology Instructor Relationship Specialty Start Date End Date Guanakito Reno MD [address] [place] [address] PCP - General Family Medicine 05/24/18 13, Pharmacist [phone] [place] [address] Pharmacist Pharmacy 05/31/21 Library Technology Instructor Relationship Specialty Start Date End Date Guanakito Reno MD [address] [place] [address] PCP - General Family Medicine 05/24/18 13, Pharmacist [address] [place] [address] Pharmacist Pharmacy 05/31/21 Library Technology Instructor Relationship Specialty Start Date End Date Guanakito Reno MD [address] [place] [address] PCP - General Family Medicine 05/24/18 13, Pharmacist [address] [place] [address] Pharmacist Pharmacy 05/31/21 Library Technology Instructor Relationship Specialty Start Date End Date Guanakito Reno MD [address] [place] [address] PCP - General Family Medicine 05/24/18 13, Pharmacist [address] [place] [address] Pharmacist Pharmacy 05/31/21 Library Technology Instructor Relationship Specialty Start Date End Date Guanakito Reno MD [address] [place] [address] PCP - General Family Medicine 05/24/18 13, Pharmacist [address] [place] [address] Pharmacist Pharmacy 05/31/21 Library Technology Instructor Relationship Specialty Start Date End Date Guanakito Reno MD [address] [place] [address] PCP - General Family Medicine 05/24/18 13, Pharmacist [phone] [place] [address] Pharmacist Pharmacy 05/31/21 Library Technology Instructor Relationship Specialty Start Date End Date Guanakito Reno MD [address] [place] [address] PCP - General Family Medicine 05/24/18 13, Pharmacist [address] [place] [address] Pharmacist Pharmacy 05/31/21 Library Technology Instructor Relationship Specialty Start Date End Date Guanakito Reno MD [address] [place] [address] PCP - General Family Medicine 05/24/18 13, Pharmacist [address] [place] [address] Pharmacist Pharmacy 05/31/21 Library Technology Instructor Relationship Specialty Start Date End Date Guanakito Reno MD [address] [place] [address] PCP - General Family Medicine 05/24/18 13, Pharmacist [phone] [place] [address] Pharmacist Pharmacy 05/31/21 Library Technology Instructor Relationship Specialty Start Date End Date Guanakito Reno MD [address] [place] [address] PCP - General Family Medicine 05/24/18 13, Pharmacist [address] [place] [address] Pharmacist Pharmacy 05/31/21 Library Technology Instructor Relationship Specialty Start Date End Date Guanakito Reno MD [address] [place] [address] PCP - General Family Medicine 05/24/18 13, Pharmacist [address] [place] [address] Pharmacist Pharmacy 05/31/21 Library Technology Instructor Relationship Specialty Start Date End Date Guanakito Reno MD [address] [place] [address] PCP - General Family Medicine 05/24/18 13, Pharmacist [address] [place] [address] Pharmacist Pharmacy 05/31/21 Library Technology Instructor Relationship Specialty Start Date End Date Guanakito Reno MD [address] [place] [address] PCP - General Family Medicine 05/24/18 13, Pharmacist [phone] [place] [address] Pharmacist Pharmacy 05/31/21 Library Technology Instructor Relationship Specialty Start Date End Date Guanakito Reno MD [address] [place] [address] PCP - General Family Medicine 05/24/18 13, Pharmacist [address] [place] [address] Pharmacist Pharmacy 05/31/21 Library Technology Instructor Relationship Specialty Start Date End Date Guanakito Reno MD [address] [place] [address] PCP - General Family Medicine 05/24/18, Pharmacist [address] [place] [address] Pharmacist Pharmacy 05/31/21 Library Technology Instructor Relationship Specialty Start Date End Date Guanakito Reno MD [address] [place] [address] PCP - General Family Medicine 05/24/18 13, Pharmacist [address] [place] [address] Pharmacist Pharmacy 05/31/21 Library Technology Instructor Relationship Specialty Start Date End Date Guanakito Reno MD [address] [place] [address] PCP - General Family Medicine 05/24/18 13, Pharmacist [phone] [place] [address] Pharmacist Pharmacy 05/31/21 Library Technology Instructor Relationship Specialty Start Date End Date Guanakito Reno MD [address] [place] [address] PCP - General Family Medicine 05/24/18, Pharmacist [address] [place] [address] Pharmacist Pharmacy 05/31/21 Library Technology Instructor Relationship Specialty Start Date End Date Guanakito Reno MD [address] [place] [address] PCP - General Family Medicine 05/24/18, Pharmacist [phone] [place] [address] Pharmacist Pharmacy 05/31/21 Library Technology Instructor Relationship Specialty Start Date End Date Guanakito Reno MD [address] [place] [address] PCP - General Family Medicine 05/24/18, Pharmacist [address] [place] [address] Pharmacist Pharmacy 05/31/21 Library Technology Instructor Relationship Specialty Start Date End Date Guanakito Reno MD [address] [place] [address] PCP - General Family Medicine 05/24/18 13, Pharmacist [address] [place] [address] Pharmacist Pharmacy 05/31/21 Library Technology Instructor Relationship Specialty Start Date End Date Guanakito Reno MD [address] [place] [address] PCP - General Family Medicine 05/24/18 13, Pharmacist [phone] [place] [address] Pharmacist Pharmacy 05/31/21 Library Technology Instructor Relationship Specialty Start Date End Date Guanakito Reno MD [address] [place] [address] PCP - General Family Medicine 05/24/18 13, Pharmacist [address] [place] [address] Pharmacist Pharmacy 05/31/21 Library Technology Instructor Relationship Specialty Start Date End Date Guanakito Reno MD [address] [place] [address] PCP - General Family Medicine 05/24/18 13, Pharmacist [address] [place] [address] Pharmacist Pharmacy 05/31/21 Library Technology Instructor Relationship Specialty Start Date End Date Guanakito Reno MD [address] [place] [address] PCP - General Family Medicine 05/24/18 13, Pharmacist [phone] [place] [address] Pharmacist Pharmacy 05/31/21 Library Technology Instructor Relationship Specialty Start Date End Date Guanakito Reno MD [address] [place] [address] PCP - General Family Medicine 05/24/18 13, Pharmacist [address] [place] [address] Pharmacist Pharmacy 05/31/21 Library Technology Instructor Relationship Specialty Start Date End Date Guanakito Reno MD [address] [place] [address] PCP - General Family Medicine 05/24/18 13, Pharmacist [address] [place] [address] Pharmacist Pharmacy 05/31/21 Library Technology Instructor Relationship Specialty Start Date End Date Guanakito Reno MD [address] [facility] [place] [address] PCP - General Family Medicine 05/24/18 13, Pharmacist [phone] [place] [address] Pharmacist Pharmacy 05/31/21 Library Technology Instructor Relationship Specialty Start Date End Date Guanakito Reno MD [address] [place] [address] PCP - General Family Medicine 05/24/18 13, Pharmacist [address] [place] [address] Pharmacist Pharmacy 05/31/21 Corrina Lennon APRN.BINGO FLOATER [address] [place] [address] Coat Cutter Family Medicine 09/23/24 Carolina Landeros APRN.BINGO FLOATER [address] [place] [address] Coat Cutter Family Medicine 09/23/24 Library Technology Instructor Relationship Specialty Start Date End Date Guanakito Reno MD [address] [place] [address] PCP - General Family Medicine 05/24/18 13, Pharmacist [phone] [place] [address] Pharmacist Pharmacy 05/31/21 Corrina Lennon APRN.BINGO FLOATER [address] [place] [address] Coat Cutter Family Medicine 09/23/24 Carolina Landeros APRN.BINGO FLOATER [address] [facility] [place] [address] Coat Cutter Family Medicine 09/23/24 Library Technology Instructor Relationship Specialty Start Date End Date Guanakito Reno MD [address] [place] [address] PCP - General Family Medicine 05/24/18 13, Pharmacist [phone] [place] [address] Pharmacist Pharmacy 05/31/21 Corrina Lennon LEDGER CLERK.BINGO FLOATER [address] [place] [address] Coat Cutter Family Medicine 09/23/24 Carolina Landeros LEDGER CLERK.BINGO FLOATER [address] [place] [address] Coat Cutter [facility] 09/23/24 Library Technology Instructor Relationship Specialty Start Date End Date Guanakito Reno MD [address] [place] [address] PCP - General Family Medicine 05/24/18 13, Pharmacist [phone] [place] [address] Pharmacist Pharmacy 05/31/21 Corrina Lennon APRN.BINGO FLOATER [address] [place] [address] Coat Cutter Family Medicine 09/23/24 Carolina Landeros APRN.BINGO FLOATER [address] [place] [address] Coat Cutter Family Medicine 09/23/24 Library Technology Instructor Relationship Specialty Start Date End Date Guanakito Reno MD [address] [place] [address] PCP - General Family Medicine 05/24/18 13, Pharmacist [id number] [place] [address] Pharmacist Pharmacy 05/31/21 Corrina Lennon APRN.BINGO FLOATER [address] [place] [address] [facility] [facility] Family Medicine 09/23/24 Carolina Landeros APRN.BINGO FLOATER [address] [place] [address] [facility] Family [facility] 09/23/24 Library Technology Instructor Relationship Specialty Start Date End Date Guanakito Reno MD [address] [place] [address] PCP - General Family Medicine 05/24/18 13, Pharmacist [address] [place] [address] Pharmacist Pharmacy 05/31/21 Corrina Lennon APRN.BINGO FLOATER [address] [place] [address] [facility] Family Medicine 09/23/24 Carolina Landeros LEDGER CLERK.BINGO FLOATER [address] [place] [address] [facility] 09/23/24 Library Technology Instructor Relationship Specialty Start Date End Date Guanakito Reno MD [address] [place] [address] PCP - General Family Medicine 05/24/18 13, Pharmacist [id number] [place] [address] Pharmacist Pharmacy 05/31/21 Corrina Lennon APRN.BINGO FLOATER [address] [place] [address] Co[employer] C[facility] Family Medicine 09/23/24 Carolina Landeros APRN.BINGO FLOATER [address] [facility] [place] [address] [facility] C[facility] Family Medicine 09/23/24 Library Technology Instructor Relationship Specialty Start Date End Date Guanakito Reno MD [address] [place] [address] PCP - General Family Medicine 05/24/18 13, Pharmacist [id number] [place] [address] Pharmacist Pharmacy 05/31/21 Corrina Lennon APRN.BINGO FLOATER [address] [place] [address] Coat Cutter [facility] Medicine 09/23/24 Carolina Landeros APRN.BINGO FLOATER [address] [place] [address] [facility] Library Technology Instructor Relationship Specialty Start Date End Date Guanakito Reno MD [address] [place] [address] PCP - General Family Medicine 05/24/18 13, Pharmacist [id number] [place] [address] Pharmacist Pharmacy 05/31/21 Corrina Lennon APRN.BINGO FLOATER [address] [place] [address] [facility] [facility] Family Medicine 09/23/24 Carolina Landeros APRN.BINGO FLOATER [address] [facility] [place] [address] [facility] C[facility] Family Medicine 09/23/24 Library Technology Instructor Relationship Specialty Start Date End Date Guanakito Reno MD [address] [place] [address] PCP - General Family Medicine 05/24/18 13, Pharmacist [address] [place] [address] Pharmacist Pharmacy 05/31/21 Corrina Lennon LEDGER CLERK.BINGO FLOATER [address] [place] [address] Co[employer] Cutter [facility] Medicine 09/23/24 Carolina Landeros LEDGER CLERK.BINGO FLOATER [address] [place] [address] [facility] Library Technology Instructor Relationship Specialty Start Date End Date Guanakito Reno MD [address] [place] [address] PCP - General Family Medicine 05/24/18 13, Pharmacist [id number] [place] [address] Pharmacist Pharmacy 05/31/21 Corrina Lennon LEDGER CLERK.BINGO FLOATER [address] [place] [address] [facility] C[facility] Family Medicine 09/23/24 Carolina Landeros LEDGER CLERK.BINGO FLOATER [address] [place] [address] [facility] Family [facility] 09/23/24 Library Technology Instructor Relationship Specialty Start Date End Date Guanakito Reno MD [address] [place] [address] PCP - General Family Medicine 05/24/18 13, Pharmacist [phone] [place] [address] Pharmacist Pharmacy 05/31/21 Corrina Lennon, LEDGER CLERK.BINGO FLOATER [address] [facility], [place] [address] [facility] [facility]utter [facility] 09/23/24 Carolina Landeros, LEDGER CLERK.BINGO FLOATER [address] [facility], [place] [address] [employer] [facility] 09/23/24 Team Status: Active Member Role/Relationship Status [...] BE BASED ON THE PRIMARY CLINICAL RECORDS. [facility] [employer] provides no warranty or guarantee of the accuracy or completeness of information in this document.
[2025-09-16 08:17] LABS: Prothrombin Time (Protime)PT. 25.2 SECONDS (11.7-14.9)
== END ==
LOC: OLS.SW 05:00
PROVIDERS: PCP Family Medicine; Visit Provider Family Medicine
DX: I48.91 Unspecified atrial fibrillation (principal)
CPT/HCPCS: 36415; 85610

== ENCOUNTER → 2025-09-23 04:00 | Outpatient (REF) | payer MEDICARE, SELFPAY ==
--- OUTSIDE RECORDS SUMMARY | 2025-09-23 04:17 | XMS RPT_ITS | CCD ---
Author Organization [facility] Care Team Providers Care Quality Measurement Specialist Name Role Phone VIPIN CARDONA Unavailable Unavailable [...] Guanakito Reno MD Primary Care Provider Haagen SIDE DOOR MAN.FOOD AND BEVERAGE INTERN, Corrina Unavailable Suppan SIDE DOOR MAN.FOOD AND BEVERAGE INTERN, Carolina A Unavailable [phone] Suppan SIDE DOOR MAN.FOOD AND BEVERAGE INTERN, Carolina A Unavailable [phone] Dr. Guanakito Reno MD Primary Care Provider [...] ilable SHADIA, GUANAKITO J Primary Care Unavailable Coulter, Guanakito Referring Unavailable David Navarrete Attending Unavailable Coulter, Guanakito Primary Care Unavailable Burt Zamora Attending Unavailable Shadia, Guanakito Primary Care Unavailable Bianka Olivera Attending Unavailable Coulter, Guanakito Primary Care Unavailable Josafat Oliva Attending Unavailable Coulter, Guanakito Primary Care Unavailable Bianka Olivera Attending Unavailable Coulter, Guanakito Primary Care Unavailable Josafat Oliva Attending Unavailable Shadia, Guanakito Primary Care Unavailable Josafta Oliva Attending Unavailable Coulter, Guanakito Primary Care Unavailable Josafat Oliva Attending Unavailable Shadia, Guanakito Primary Care Unavailable Raquel, Josafat Referring Unavailable Raquel, Josafat Attending Unavailable Coulter, Guanakito Primary Care Unavailable Josafat Oliva Referring Unavailable Shadia, Guanakito Primary Care Unavailable Josafat Oliva Attending Unavailable Josafat Oliva Attending Unavailable Coulter, Guanakito Primary Care Unavailable Josafat Oliva Attending Unavailable Coulter, Guanakito Primary Care Unavailable Coulter, Guanakito Primary Care Unavailable Josafat Oliva Attending Unavailable Josafat Oliva Attending Unavailable Shadia, Guanakito Primary Care Unavailable Coulter, Guanakito Primary Care Unavailable Josafat Oliva Attending Unavailable Josafat Oliva Attending Unavailable Shadia, Guanakito Primary Care Unavailable Josafat Oliva Attending Unavailable Coulter, Guanakito Primary Care Unavailable Josafat Oliva Referring Unavailable Josafat Oliva Attending Unavailable Coulter, Guanakito Primary Care Unavailable Josafat Oliva Attending Unavailable Shadia, Guanakito Primary Care Unavailable Josafat Oliva Attending Unavailable Coulter, Guanakito Primary Care Unavailable Josafat Oliva Referring Unavailable Josafat Oliva Attending Unavailable Shadia, Guanakito Primary Care Unavailable Josafat Oliva Attending Unavailable Coulter, Guanakito Primary Care Unavailable SimonJosafat Barahona Attending Unavailable Shadia, Guanakito Primary Care Unavailable Josafat Oliva Attending Unavailable Shadia, Guanakito Primary Care Unavailable Coulter, Guanakito Referring Unavailable Mollison, Josafat Attending Unavailable Coulter, Guanakito Primary Care Unavailable Allergies Allergy Classification Reported Allergen(s) Allergy Type Date of Onset Reaction(s) Facility (4 sources) Environmental Allergies: Uncoded; Translations: [Environmental Allergies: Uncoded] Allergy to substance [facility] Medications Current Medications Medication Drug Class(es) [...] hydrochloride 10 mg oral tablet (20 sources) E-doannt-I-aspart ate Receptor 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 [place], [place], [id number] PT Coag (PPP) [Time] 19.6 s High 11.7-14.9 [facility] Comment on above: Order Comment: 317.1 Performed By: #### L 300.3900 #### [facility] [address] [place], [address] Prothrombin Time w/INRon INR Coag (PPP) [Relative time] 1.7 {INR} Normal [facility] Comment on above: Order Comment: 317.1 Performed By: #### L 300.3900 #### [facility] [address] [place], [address] PT Coag (PPP) [Time] 20.1 s High 11.7-14.9 [facility] Comment on above: Order Comment: 317.1 Performed By: #### L 300.3900 #### [facility] [address] [place], [place], [address] Protime w/INR Fingerstickon 08-14-2025 INR Coag (PPP) [Relative time] 1.9 {INR} Normal [facility] Comment on above: Result Comment: Crit ical Value > 4.0 Performed By: #### L 300.3900 #### [facility] [address] [place], [place], [address] Protime Coagsen 21.4 SEC High 11.7-14.9 [facility] Comment on above: Performed By: #### L 300.3900 #### [facility] [address] [place], [place], [address] CNPNon [facility]-11-2025 [facility]Sanghvi[facility] -------- CAL MITCHELL ([id number]) 1945 M Date Time Provider Department 08/11/25 LAURA IRAHETA During your visit today, we recorded the following information about you: Jimmy Kwon 08/11/2025 10:52 AM Signed Annual f/u - Bilateral carotid artery stenosis, hx of carotid endarterectomy - US PRIOR Spoke w/daughter first - stated he was now a resident of [facility]. Updated pt's demographics with new info/ph numbers. Transferred to and left detailed VM with [facility]'s medical referral coordinator, Yanci (schedule's resident's appts) to schedule [...] stenosis of unspecified carotid a*10/25/2013 03/26/2024 Frequency [[id number]] 02/11/2016 03/26/2024 BPH (benign prostatic hypertrophy) with [...] Encounter Status:Closed by JIMMY KWON on 08/11/25 [facility] CNPIndu 08-01-2025 [facility] (FAMPWS) -------- CAL MITCHELL ([id number]) 1945 M Date Time Provider Department 08/01/25 GUANAKITO RENO [facility] During your visit today, we recorded the following information about you: Olivia Heredia, RN 08/01/2025 10:33 AM Signed Patient's son Gustavo calling in asking for advise from Dr. Reno, for patient. Gustavo states patient is now receiving [facility] care at [facility] and his care is being [...] 3 years, if needed? Please advise sonGustavo. 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 Normal [facility] Prothrombin Time w/INRon INR Coag (PPP) [Relative time] 2.0 {INR} Normal [facility] Comment on above: Order Comment: 317.1 Performed By: #### L 300.3900 #### [facility] [address] [place], [address] PT Coag (PPP) [Time] 22.7 s High 11.7-14.9 [facility] Comment on above: Order Comment: 317.1 Performed By: #### L 300.3900 #### [facility] [address] [place], [address] Protime w/INR Fingerstickon 07-17-2025 INR Coag (PPP) [Relative time] 2.0 {INR} Normal [facility] Comment on above: Result Comment: Crit ical Value > 4.0 Performed By: #### L 300.3900 #### [facility] [address] [place], [address] Protime Coagsen 22.3 SEC High 11.7-14.9 [facility] Comment on above: Performed By: #### L 300.3900 #### [facility] [address] [place], [address] Prothrombin Time w/INRon INR Coag (PPP) [Relative time] 2.0 {INR} Normal [facility] Comment on above: Order Comment: 317.1 Performed By: #### L 300.3900 #### [facility] [address] [place], [address] PT Coag (PPP) [Time] 22.8 s High 11.7-14.9 [facility] Comment on above: Order Comment: 317.1 Performed By: #### L 300.3900 #### [facility] [address] [place], [address] Prothrombin Time w/INRon INR Coag (PPP) [Relative time] 2.1 {INR} Normal [facility] Comment on above: Performed By: #### L 300.3900 #### [facility] [address] [place], [address] PT Coag (PPP) [Time] 24.2 s High 11.7-14.9 [facility] Comment on above: Performed By: #### L 300.3900 #### [facility] [address] [place], [address] Protime w/INR Fingerstickon 06-17-2025 INR Coag (PPP) [Relative time] 2.1 {INR} Normal [facility] Comment on above: Result Comment: Crit ical Value > 4.0 Performed By: #### L 9200.0000 #### [facility] [address] [place], [address] Protime Coagsen 22.8 SEC High 11.7-14.9 [facility] Comment on above: Performed By: #### L 9200.0000 #### [facility] [address] [place], [address] Prothrombin Time w/INRon INR Coag (PPP) [Relative time] 1.9 {INR} Normal [facility] Comment on above: Order Comment: 317.1 Performed By: #### L 300.3900 #### [facility] [address] [place], [address] PT Coag (PPP) [Time] 22.4 s High 11.7-14.9 [facility] Comment on above: Order Comment: 317.1 Performed By: #### L 300.3900 #### [facility] [address] [place], [address] Prothrombin Time w/INRon INR Normal [facility] Comment on above: Result Comment: ANTONINO JONES SEE [id number]:[id number] Performed By: #### L 300.3900 #### [facility] [address] [place], [address] PROTIME Normal 11.7-14.9 [facility] Comment on above: Result Comment: ANTONINO JONES SEE [id number]:[id number] Performed By: #### L 300.3900 #### [facility] [address] [place], [address] International normalized rat io (INR) calculationOrdered By: Josafat Simon on 06-03-2025 INR Coag (Bld) [Relative time] 3.0 {INR} [facility] Prothrombin Time w/INRon INR Coag (PPP) [Relative time] 3.0 {INR} Normal [facility] Comment on above: Order Comment: 317.1 Performed By: #### L 300.3900 #### [facility] [address] [place], [address] PT Coag (PPP) [Time] 31.4 s High 11.7-14.9 [facility] Comment on above: Order Comment: 317.1 Performed By: #### L 300.3900 #### [facility] [address] [place], [address] Prothrombin timeOrdered By: Josafat Simon on 06-03-2025 PT Coag (PPP) [Time] 31.4 s High 11.7-14.9 [facility] International normalized rat io (INR) measurement by fingerstickOrdered By: Josafat Simon on 05-27-2025 INR Coag (BldC) [Relative time] 2.3 [facility] Comment on above: Critical Value > 4.0 Protime w/INR Fingerstickon 05-27-2025 INR Coag (PPP) [Relative time] 2.3 {INR} Normal [facility] Comment on above: Result Comment: Crit ical Value > 4.0 Performed By: #### L 300.3900 #### [facility] [place], [address] Protime Coagsen 24.6 SEC High 11.7-14.9 [facility] Comment on above: Performed By: #### L 300.3900 #### [facility] [place], [address] Whole blood prothrombin time Ordered By: Josafat Simon on 05-27-2025 PT Coag (Bld) [Time] 24.6 s High 11.7-14.9 [facility] International normalized rat io (INR) measurement by fingerstickOrdered By: Josafat Simon on 05-20-2025 INR Coag (BldC) [Relative time] 2.7 [facility] Comment on above: Critical Value > 4.0 Protime w/INR Fingerstickon 05-20-2025 INR Coag (PPP) [Relative time] 2.7 {INR} Normal [facility] Comment on above: Result Comment: Crit ical Value > 4.0 Performed By: #### L 300.3900 #### [facility] [address] [facility] [address] Protime Coagsen 28.2 SEC High 11.7-14.9 [facility] Comment on above: Performed By: #### L 300.3900 #### [facility] [address] [place], [address] Whole blood prothrombin time Ordered By: Josafat Simon on 05-20-2025 PT Coag (Bld) [Time] 28.2 s High 11.7-14.9 [facility] International normalized rat io (INR) calculationOrdered By: Josafat Simon on 05-15-2025 INR Coag (Bld) [Relative time] 2.3 {INR} [facility] Prothrombin Time w/INRon INR Coag (PPP) [Relative time] 2.3 {INR} Normal [facility] Comment on above: Order Comment: 317.1 Performed By: #### L 300.3900 #### [facility] [place], [address] Prothrombin timeOrdered By: Josafat Simon on 05-15-2025 PT Coag (PPP) [Time] 25.3 s High 11.7-14.9 [facility] Comment on above: Order Comment: 317.1 Performed By: #### L 300.3900 #### [facility] [address] [place], [address] International normalized rat io (INR) calculationOrdered By: Josafat Simon on 05-13-2025 INR Coag (Bld) [Relative time] 1.7 {INR} [facility] Prothrombin Time w/INRon INR Coag (PPP) [Relative time] 1.7 {INR} Normal [facility] Comment on above: Order Comment: 317.1 Performed By: #### L 300.3900 #### [facility] [address] [place], [address] PT Coag (PPP) [Time] 20.6 s High 11.7-14.9 [facility] Comment on above: Order Comment: 317.1 Performed By: #### L 300.3900 #### [facility] [address] [place], [address] Prothrombin timeOrdered By: Josafat Simon on 05-13-2025 PT Coag (PPP) [Time] 20.6 s High 11.7-14.9 [facility] International normalized rat io (INR) calculationOrdered By: Josafat Simon on 05-08-2025 INR Coag (Bld) [Relative time] 3.2 {INR} [facility] Prothrombin Time w/INRon INR Coag (PPP) [Relative time] 3.2 {INR} Normal [facility] Comment on above: Order Comment: 317.1 Performed By: #### L 300.3900 #### [facility] [address] [place], [address] PT Coag (PPP) [Time] 33.1 s High 11.7-14.9 [facility] Comment on above: Order Comment: 317.1 Performed By: #### L 300.3900 #### [facility] [address] [place], [address] Prothrombin timeOrdered By: Josafat Simon on 05-08-2025 PT Coag (PPP) [Time] 33.1 s High 11.7-14.9 [facility] International normalized rat io (INR) calculationOrdered By: Josafat Simon on 05-06-2025 INR Coag (Bld) [Relative time] 4.1 {INR} High [facility] Comment on above: CRITICAL VALUE ZABALA D TO IRMA SOLOMON (OLS.SW)05/06/25 0801 Travis OrtizRESULTS READ BACK BY SAME. Prothrombin Time w/INRon INR Coag (PPP) [Relative time] 4.1 {INR} Invalid Interpretation Code [facility] Comment on above: Order Comment: FLORES RSTICK CONFIRMATION Result Comment: CRIT ICAL VALUE CALLED TO IRMA SOLOMON (OLS.SW) 05/06/25 0801 Travis Yost. RESULTS READ BACK BY SAME. Performed By: #### L 300.3900 #### [facility] [address] [place], [address] PT Coag (PPP) [Time] 40.8 s High 11.7-14.9 [facility] Comment on above: Order Comment: FINGE RSTICK CONFIRMATION Performed By: #### L 300.3900 #### [facility] [address] [place], [address] Prothrombin timeOrdered By: Josafat Simon on 05-06-2025 PT Coag (PPP) [Time] 40.8 s High 11.7-14.9 [facility] Protime w/INR Fingerstickon 05-06-2025 INR Coag (PPP) [Relative time] 4.3 {INR} Invalid Interpretation Code [facility] Comment on above: Result Comment: Crit ical Value > 4.0 Performed By: #### L 300.3900 #### [facility] [address] [place], [address] Protime Coagsen 42.3 SEC High 11.7-14.9 [facility] Comment on above: Performed By: #### L 300.3900 #### [facility] [address] [place], [address] Whole blood prothrombin time Ordered By: Josafat Simon on 05-06-2025 PT Coag (Bld) [Time] 42.3 s High 11.7-14.9 [facility] Orthopedic Visit Reporton Orthopedic Visit Report [facility] [address] [place] [address] [address] [place], [place] [address] OFFICE VISIT Date of Service: 05/02/25 MR#: [id number] Acct: [id number] Name: CAL MITCHELL Rep #: [id number] : 1945 Provider: Dr. David Borru so, DO Age/Sex: 79/M Location[place] [facility] [place] Status: Signed Intake Vital Signs 03/07/25 12:57 [...] History acetaminophen 650 mg rectal 650 mg MO Q4H PRN 05/02/25 5 History suppository aluminum-mag hydroxide-simethicone 30 ml PO Q4H PRN 05/02/25 History 200 mg-200 mg-20 mg/5 mL oral susp (Antacid) bisacodyl 10 mg rectal suppository 10 mg MO QDAY PRN 05/02/2505/02 History (Dulcolax (bisacodyl)) dextrose [...] hr sodium phosphates 19 gram-7 118 ml MO ONCE PRN 05/02/25 History gram/118 mL enema [...] is here today with his son and myzocnze-bm-vpq. Usually ambulates with a walker or a cane. Had a fall. Was mainly complaining about pain to the upper extremity was seen in a peripheral hospital referred here given a sling they found approximately wrist fracture on the right side. The patient does not speak very much but he converses overall well he is ryiqy-wbkv-ffkuvggh fairly stoic. Plan:79-year-old man with a (more content not included)... Normal [facility] Shoulder min 2 Viewson 05-02 Shoulder min 2 Views [facility] [address] [place], [place] [address] Shoulder min 2 Views MR#: [id number] Acct: [id number] Name: CAL MITCHELL Rep #: [id number] : 1945 M 79 From: [place] PCP: Dr. Guanakito Reno MD Status: DEP AMB Study: Shoulder min 2 Views Date of Exam: 05/02/25 Exam# [id number] Ordering Dr: David Navarrete DO PROCEDURE: SHOULDER [...] changes involving the glenohumeral joint. Reading Location: [id number] CC: Dr. David Navarrete DO; Dr. Guanakito Reno MD Utility Spray Operator: Signed Normal [facility] International normalized rat io (INR) calculationOrdered By: Josafat Simon on 05-01-2025 INR Coag (Bld) [Relative time] 3.2 {INR} [facility] Prothrombin Time w/INRon INR Coag (PPP) [Relative time] 3.2 {INR} Normal [facility] Comment on above: Performed By: #### L 300.3900 #### [facility] [address] [facility] [place], [place], [phone] ([phone] PT Coag (PPP) [Time] 33.6 s High 11.7-14.9 [facility] Comment on above: Performed By: #### L 300.3900 #### [facility] [address] [place], [place], [phone] Prothrombin timeOrdered By: Josafat Simon on 05-01-2025 PT Coag (PPP) [Time] 33.6 s High 11.7-14.9 [facility] International normalized rat io (INR) calculationOrdered By: Josafat Simon on 04-29-2025 INR Coag (Bld) [Relative time] 3.1 {INR} [facility] Prothrombin Time w/INRon INR Coag (PPP) [Relative time] 3.1 {INR} Normal [facility] Comment on above: Performed By: #### L 300.3900 #### [facility] [address] [place], [place], [phone] ([address]) Prothrombin timeOrdered By: Josafat Simon on 04-29-2025 PT Coag (PPP) [Time] 32.2 s High 11.7-14.9 [facility] Comment on above: Performed By: #### L 300.3900 #### [facility] [address] [place], [address] International normalized rat io (INR) measurement by fingerstickOrdered By: Josafat Simon on 04-24-2025 INR Coag (BldC) [Relative time] 3.5 [facility] Comment on above: Critical Value > 4.0 Protime w/INR Fingerstickon 04-24-2025 INR Coag (PPP) [Relative time] 3.5 {INR} Normal [facility] Comment on above: Result Comment: Crit ical Value > 4.0 Performed By: #### L 300.3900 #### [facility] [address] [place], [address] Protime Coagsen 35.4 SEC High 11.7-14.9 [facility] Comment on above: Performed By: #### L 300.3900 #### [facility] [address] [place], [address] Whole blood prothrombin time Ordered By: Josafat Simon on 04-24-2025 PT Coag (Bld) [Time] 35.4 s High 11.7-14.9 [facility] Anion gap in Serum or Plasma Ordered By: Bianka Gonzalez on 04-17-2025 Anion gap [Moles/Vol] 10 mmol/L - [facility] BUN/creatinine ratioOrdered By: Bianka Gonzalez on 04-17-2025 Urea nitrogen/Creatinine [Mass ratio] 21.1 mg/mg High - [facility] Basic Metabolic Profile (BMP )on 04-17-2025 BUN/CRE 21.1 RATIO High 08-04 [facility] Comment on above: Order Comment: 213 Performed By: #### L 300.3900, L100.0500, L500.2500 #### [facility] [address] [place], [address] Calcium [Mass/Vol] 8.2 mg/dL Normal 7.6-11.0 [facility] Comment on above: Order Comment: 213 Performed By: #### L 300.3900, L100.0500, L500.2500 #### [facility] [address] [place], [address] Chloride [Moles/Vol] 111 mmol/L High 98-108 [facility] Comment on above: Order Comment: 213 Performed By: #### L 300.3900, L100.0500, L500.2500 #### [facility] [address] [place], [address] CO2 [Moles/Vol] 17.2 mmol/L Low 21.0-32.0 [facility] Comment on above: Order Comment: 213 Performed By: #### L 300.3900, L100.0500, L500.2500 #### [facility] [address] [place], [address] Creatinine [Mass/Vol] 2.45 mg/dL High 0.70-1.20 [facility] Comment on above: Order Comment: 213 Performed By: #### L 300.3900, L100.0500, L500.2500 #### [facility] [address] [place], [address] GAP 10 Normal 5-15 [facility] Comment on above: Order Comment: 213 Performed By: #### L 300.3900, L100.0500, L500.2500 #### [facility] [address] [place], [address] GFR/1.73 sq M.predicted among non-blacks MDRD (S/P/Bld) [Vol rate/Area] 26 mL/min/{1.73_m2} Low >60 [facility] Comment on above: Order Comment: 213 Result Comment: mL/m in/1.73m2 CKD-EPI Creatinine Equation (2020) Performed By: #### L 300.3900, L100.0500, L500.2500 #### [facility] [address] [place], [address] Glucose [Mass/Vol] 137 mg/dL High 70-99 [facility] Comment on above: Order Comment: 213 Performed By: #### L 300.3900, L100.0500, L500.2500 #### [facility] [address] [place], [address] Potassium [Moles/Vol] 4.9 mmol/L Normal 3.3-5.1 [facility] Comment on above: Order Comment: 213 Performed By: #### L 300.3900, L100.0500, L500.2500 #### [facility] [address] [place], [place] [address] Sodium [Moles/Vol] 139 mmol/L Normal 133-145 [facility] Comment on above: Order Comment: 213 Performed By: #### L 300.3900, L100.0500, L500.2500 #### [facility] [address] [place], [address] Urea nitrogen [Mass/Vol] 52 mg/dL High 4-19 [facility] Comment on above: Order Comment: 213 Performed By: #### L 300.3900, L100.0500, L500.2500 #### [facility] [address] [place], [address] CBC-Complete Blood Cnt No Di ffon 04-17-2025 Erythrocyte distribution width (RBC) [Ratio] 16.4 % High 11.6-14.6 [facility] Comment on above: Order Comment: 213 Performed By: #### L 300.3900, L100.0500, L500.2500 #### [facility] [address] [place], [address] Hematocrit (Bld) [Volume fraction] 35.2 % Low 40-54 [facility] Comment on above: Order Comment: 213 Performed By: #### L 300.3900, L100.0500, L500.2500 #### [facility] [address] [place], [address] Hemoglobin (Bld) [Mass/Vol] 10.6 g/dL Low 13.0-16.5 [facility] Comment on above: Order Comment: 213 Performed By: #### L 300.3900, L100.0500, L500.2500 #### [facility] [address] [place], [address] MCH (RBC) [Entitic mass] 29.2 pg Normal 27.0-32.0 [facility] Comment on above: Order Comment: 213 Performed By: #### L 300.3900, L100.0500, L500.2500 #### [facility] [address] [place], [address] MCHC (RBC) [Mass/Vol] 30.1 g/dL Low 32-36 [facility] Comment on above: Order Comment: 213 Performed By: #### L 300.3900, L100.0500, L500.2500 #### [facility] [address] [place], [address] MCV (RBC) [Entitic vol] 97.0 fL High 80-94 [facility] Comment on above: Order Comment: 213 Performed By: #### L 300.3900, L100.0500, L500.2500 #### [facility] [address] [place], [address] Platelet mean volume (Bld) [Entitic vol] 10.0 fL Normal 6.2-12.0 [facility] Comment on above: Order Comment: 213 Performed By: #### L 300.3900, L100.0500, L500.2500 #### [facility] [address] [place], [address] Platelets (Bld) [#/Vol] 161 10*3/uL Normal 150-450 [facility] Comment on above: Order Comment: 213 Performed By: #### L 300.3900, L100.0500, L500.2500 #### [facility] [address] [place], [address] RBC (Bld) [#/Vol] 3.63 10*6/uL Low 4.6-6.2 [facility] Comment on above: Order Comment: 213 Performed By: #### L 300.3900, L100.0500, L500.2500 #### [facility] [address] [place], [address] RDW SD 58.6 fl High 35.1-43.9 [facility] Comment on above: Order Comment: 213 Performed By: #### L 300.3900, L100.0500, L500.2500 #### [facility] [address] [place], [address] WBC (Bld) [#/Vol] 7.2 10*3/uL Normal 4.4-11.0 [facility] Comment on above: Order Comment: 213 Performed By: #### L 300.3900, L100.0500, L500.2500 #### [facility] [address] [place], [address] Carbon dioxide, total [Moles /volume] in Central venous bloodOrdered By: Bianka Gonzalez on 04-17-2025 CO2 [Moles/Vol] 17.2 mmol/L Low 21.0-32.0 [facility] Chloride assayOrdered By: Josr Gonzalez on 04-17-2025 Chloride [Moles/Vol] 111 mmol/L High 98-108 [facility] Erythrocyte distribution wid th ratioOrdered By: Bianka Gonzalez on 04-17-2025 Erythrocyte distribution width (RBC) [Ratio] 16.4 % High 11.6-14.6 [facility] Erythrocyte distribution wid th standard deviationOrdered By: Bianka Gonzalez on 04-17-2025 Erythrocyte distribution width (RBC) [Ratio] 58.6 fl High 35.1-43.9 [facility] Glomerular filtration rate ( GFR) estimation/1.73 sq m using serum, plasma, or whole bOrdered By: Bianka Gonzalez on 04-17-2025 GFR/1.73 sq M.predicted among non-blacks MDRD (S/P/Bld) [Vol rate/Area] 26 mL/min/{1.73_m2} Low >60 [facility] Comment on above: mL/min/1.73m2 CKD-EP I Creatinine Equation (2020) Hematocrit Auto (Bld) [Volum e fraction]Ordered By: Bianka Gonzalez on 04-17-2025 Hematocrit (Bld) [Volume fraction] 35.2 % Low 40-54 [facility] Hemoglobin measurementOrdere d By: Bianka Gonzalez on 04-17-2025 Hemoglobin (Bld) [Mass/Vol] 10.6 g/dL Low 13.0-16.5 [facility] International normalized rat io (INR) calculationOrdered By: Bianka Gonzalez on 04-17-2025 INR Coag (Bld) [Relative time] 2.7 {INR} [facility] MCV (mean corpuscular volume ) determinationOrdered By: Bianka Gonzalez on 04-17-2025 MCV (RBC) [Entitic vol] 97.0 fL High 80-94 [facility] Mean corpuscular hemoglobin (MCH) determinationOrdered By: Bianka Gonzalez on 04-17-2025 MCH (RBC) [Entitic mass] 29.2 pg 27.0-32.0 [facility] Mean corpuscular hemoglobin concentration (MCHC) determinationOrdered By: Bianka Gonzalez on 04-17-2025 MCHC (RBC) [Mass/Vol] 30.1 g/dL Low 32-36 [facility] Mean platelet volume determi nationOrdered By: Bianka Gonzalez on 04-17-2025 Platelet mean volume (Bld) [Entitic vol] 10.0 fL 6.2-12.0 [facility] Platelet countOrdered By: Josr Gonzalez on 04-17-2025 Platelets (Bld) [#/Vol] 161 10*3/uL 150-450 [facility] Potassium measurement (mass/ volume)Ordered By: Bianka Gonzalez on 04-17-2025 Potassium (Unsp spec) [Mass/Vol] 4.9 mmol/L 3.3-5.1 [facility] Prothrombin Time w/INRon INR Coag (PPP) [Relative time] 2.7 {INR} Normal [facility] Comment on above: Order Comment: 213 Performed By: #### L 300.3900, L100.0500, L500.2500 #### [facility] [address] [place], [address] PT Coag (PPP) [Time] 29.7 s High 11.7-14.9 [facility] Comment on above: Order Comment: 213 Performed By: #### L 300.3900, L100.0500, L500.2500 #### [facility] [address] [place], [address] Prothrombin timeOrdered By: Bianka Gonzalez on 04-17-2025 PT Coag (PPP) [Time] 29.7 s High 11.7-14.9 [facility] RBC Auto (Bld) [#/Vol]Ordere d By: Bianka Gonzalez on 04-17-2025 RBC (Bld) [#/Vol] 3.63 10*6/uL Low 4.6-6.2 [facility] Serum creatinine measurement (mass/volume)Ordered By: Bianka Gonzalez on 04-17-2025 Creatinine [Mass/Vol] 2.45 mg/dL High 0.70-1.20 [facility] Serum glucose measurement (m ass/volume)Ordered By: Bianka Gonzalez on 04-17-2025 Glucose [Mass/Vol] 137 mg/dL High 70-99 [facility] Serum or plasma calcium cornelius urement (mass/volume)Ordered By: Bianka Gonzalez on 04-17-2025 Calcium [Mass/Vol] 8.2 mg/dL 7.6-11.0 [facility] Serum or plasma urea nitroge n measurement (mass/volume)Ordered By: Bianka Gonzalez on 04-17-2025 Urea nitrogen [Mass/Vol] 52 mg/dL High 4-19 [facility] Sodium levelOrdered By: Venitakeiko rey Lisa on 04-17-2025 Sodium [Moles/Vol] 139 mmol/L 133-145 [facility] White blood cell (WBC) count Ordered By: Bianka Gonzalez on 04-17-2025 WBC (Bld) [#/Vol] 7.2 10*3/uL 4.4-11.0 [facility] CNPNon 04-15-2025 CNPN Telephone (PHAMTE) -------- CAL MITCHELL ([id number]) 1945 M Date Time Provider Department 04/15/25 [place] During your visit today, we recorded the following information about you: Twin Cole [facility] 04/15/2025 9:12 AM Signed [facility] Ambulatory Pharmacy Anticoagulation Clinic Anticoagulation Episode Summary Anticoagulation Care Providers Provider Role Specialty Phone number Guanakito Reno MD [facility] Family Medicine [phone] Cal Hageroll is a 79 year old [...] Pharmacy Anticoagulation Clinic Pharmacy [facility] Clinic Pager: [phone]. Twin Cole RPh 04/29/2025 8:54 AM Signed [...] to patient's daughter. Patient has moved to [facility]. His INRs are monitored there. Will discharge patient from [facility] Daniel (Desino)Ashley 05/06/2025 2:31 PM Signed Pharmacy Anticoagulation Clinic Discharge completed at this time. Patient may be re-referred, if deemed appropriate. Ashley Sanchez; Ubaldo (Desino) [facility] Allergies As of Date: [...] guidelines link (more content not included)... [facility] -------- CAL MITCHELL ([id number]) 1945 M Date Time Provider Department 04/14/25 GUANAKITO R[place] [facility] During your visit today, we recorded [...] Fully Assessed Reason for Visit: Patient Question [4747] Prescriptions as of 04/14/2025 - warfarin (COUMADIN) [...] No - Lancets (ONE TOUCH DELICA) [facility] lancets Test blood sugar(s) one time daily. [...] stenosis of unspecified carotid a*10/25/2013 03/26/2024 Frequency [[id number]] 02/11/2016 03/26/2024 BPH (benign prostatic hypertrophy) with [...] included)... [facility] 03-28-2025 [facility] (FAMPWS[facility] -------- CAL MITCHELL ([id number]) 1945 M Date Time Provider Department 03/28/25 GUANAKITO R[place] [facility] During your visit today, we recorded the following information about you: Niels Rodriges, BENJIE 03/28/2025 1:06 PM Signed Faxed recent ov notes to [employer] per daughter, January request. . January reports she talked to [facility] about patient going to live there and [facility] instructed her to have pcp office send an H AND P to them for review. 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 [Z79.*02/04/2020 Dementia, vascular, [...] Encounter Status:Closed by Niels RODRIGES on 03/28/25 [facility] Molly 03-24-2025 LUCIO Telephone (PHAHIE) -------- CAL MITCHELL ([id number]) 1945 M Date Time Provider Department 03/24/25 ALEJANDRO MOLINA During your visit today, we recorded the following information about you: Alejandro Molina RPh 03/24/2025 10:57 AM Signed [facility] Pharmacy Anticoagulation Clinic Anticoagulation Episode Summary Anticoagulation Care Providers Provider Role Specialty Phone number Guanakito Reno MD [facility] [phone] Cal Mitchell is a 79 year old [...] instructed to call [facility] at [phone] with any questions or concerns. Alejandro Molina RPh Clinical Pharmacist, Pharmacy Anticoagulation Clinic Pharmacy Anticoagulation Clinic Pager: [phone] Alejandro Molina RPh 04/07/2025 3:31 PM Signed [...] diabetes mellitu (more content not included)... Normal [facility] Inital Evaluation (1) - PTon 03-24-2025 Inital Evaluation (1) - PT [facility] [address] [place] [address] [address] [place] [address] / REHABILITATION SERVICES INITIAL EVALUATION MR#: [id number] Acct: [id number] Name: CAL MITCHELL Rep #: [id number] : 1945 79 From: Rosa MCGRAWT Referring Dr.: Dr. Josafat García MD Status: R EG RCR Insurance: [facility] [id number] SELF PAY INSURANCE Patient's Visit Information Visit [...] PROM due to guarding. Strength: Scap: poor, procedures rn: fair, no other motions tested due to [...] to be FAXED BACK to us at [phone] for Medicare purposes. For Medicare only, by signing this I certify the plan of care. Please let me know if there are questions or concerns regarding this plan of care. Physician Signature: Date: ____ 03/24/25 1256 CC: Dr. Josafat García MD; Dr. Guanakito Reno MD E (more content not included)... Normal [facility] Orthopedic Visit Reporton Orthopedic Visit Report [facility] [address] [place] [address] [address] [place] [address] OFFICE VISIT Date of Service: 03/07/25 MR#: [id number] Acct: [id number] Name: CAL MITCHELL Rep #: [id number] : 1945 Provider: Dr. Josafat murcia MD Age/Sex: 79/M [place] [facility] Status: Signed Intake Vital Signs 03/06/25 16:19 [...] you fallen in the past year?: Yes [facility] Medical History (Updated 03/07/25 @ [...] by me, Dr. Josafat García MD 03/07/25 0967. Part of today???s visit was documented by [ ], acting as scribe. CAL MITCHELL is a 79 year old M here today for R proximal humerus fracture. Patient fell 2 days ago. He lives at home. He is here today with his son and [id number]-er-vso. Usually ambulates with a walker or a cane. Had a fall. Was mainly complaining about pain to the upper extremity was seen in a peripheral hospital referred here given a sling they found approximately wrist fracture on the right side. The patient does not speak very much but he converses overall well he is aisqb-cpxg-tvzzzgdb fairly stoic. Supplemental Info Proximal humerus fracture [...] a r (more content not included)... Normal [facility] CNOVon 03-06-2025 [facility] Office Visit (FAMPWS ) -------- PAULACAL Chanell ([id number]) 1945 M Date Time Provider Department 03/06/25 3:20 PM [facility] During your visit today, we recorded the following information about you: Pulse Blood pressure 68/minute 124/58 Carolina Landeros APRN.[employer]OD AND BEVERAGE INTERN 03/06/2025 4:30 PM Signed This is a [...] and 9-10/10 with movement. - Currently taking [place] for pain management. - Denies pain elsewhere [...] Insulin: No Lancets (ONE TOUCH DELICA) [facility] lancets Test blood sugar(s) one time daily. [...] SYSTEMS Mu (more content not included)... Normal [facility] ED NOTEon 03-06-2025 ED NOTE HNO ID: [id number] Author: CHITTENDEN, JACK, RN Service: ? Author Type: Registered Nurse Type: ED Notes Filed: 03/06/2025 00:19 Note Text: Provided meds. Placed in sling. Assisted to bathroom and back Normal [facility] ED PROV NOTEon 03-06-2025 ED PROV NOTE HNO ID: [id number] Author: KEDAR HERNANDEZ MD Service: Emergency Medicine [...] (more content not included)... Normal [facility] CT BRAIN WO IVCONon 03-05-20 CT BRAIN WO IVCON * * *Final Report* * * DATE OF EXAM: Mar 05 2025 11:55PM [facility] 0504 - CT BRAIN WO IVCON [...] wall calcifications, including in the left-sided carotid. Interior Design Coordinator (topogram) images: Known (in correlation to earlier [...] vertebrae with counting from the craniocervical junction. Utility Spray Operator: PSCB Transcribe Date/Time: Mar 06 2025 12:48A Dictated by : CAMELIA GROVES MD This examination was interpreted and the report reviewed and electronically signed by: CAMELIA GROVES MD on Mar 06 2025 1:08AM EST [id number] Normal [facility] CT CERVICAL SPINE WO IVCONon 03-05-2025 CT CERVICAL SPINE WO IVCON * * *Final Report* * * DATE OF EXAM: Mar 05 2025 11:55PM [facility] 0505 - CT CERVICAL SPINE WO [...] wall calcifications, including in the left-sided carotid. Interior Design Coordinator (topogram) images: Known (in correlation to earlier [...] vertebrae with counting from the craniocervical junction. Utility Spray Operator: PSCB Transcribe Date/Time: Mar 06 2025 12:48A Dictated by : CAMELIA GROVES MD This examination was interpreted and the report reviewed and electronically signed by: CAMELIA GROVES MD on Mar 06 2025 1:08AM EST [id number] Normal [facility] ED NOTEon 03-05-2025 ED NOTE HNO ID: [id number] Author: JACK HOLCOMB, RN Service: ? Author Type: Registered Nurse Type: ED Notes Filed: 03/05/2025 23:05 Note Text: Assisted to bathroom and back Normal [facility] ED NOTE HNO ID: [id number] Author: JACK HOLCOMB, BENJIE Service: ? Author Type: Registered Nurse Type: ED Notes Filed: 03/05/2025 22:10 Note Text: Pt c/o fall with right shoulder injury when wheel chair turned over. Denies neck and head injury. [place], warm, dry. No apparent distress. Alert and oriented. Normal [facility] XR HUMERUS 2V AP/LAT RTon [...] separation. No dislocation of the glenohumeral joint. Utility Spray Operator: PSCB Transcribe Date/Time: Mar 06 2025 12:37A Dictated by : LINNEA DIAS MD This examination was interpreted and the report reviewed and electronically signed by: LINNEA DIAS MD on Mar 06 2025 12:40AM EST [id number] Normal [facility] XR SHLDR >/=3V AP/JR AP/OTH [...] separation. No dislocation of the glenohumeral joint. Utility Spray Operator: PSCB Transcribe Date/Time: Mar 06 2025 12:37A Dictated by : LINNEA DIAS MD This examination was interpreted and the report reviewed and electronically signed by: LINNEA DAIS MD on Mar 06 2025 12:40AM EST [id number] [facility] 02-20-2025 [facility] (PHAMTE) -------- CAL MITCHELL ([id number]) 1945 M Date Time Provider Department 02/20/25 JIMMY CARRIZALES During your visit today, we recorded the following information about you: Jimmy Carrizales, [facility] 02/20/2025 9:00 AM Signed [facility] Ambulatory Pharmacy Anticoagulation Clinic Anticoagulation Episode Summary Anticoagulation Care Providers Provider Role Specialty Phone number Guanakito Reno MD [facility] Family Medicine [phone] Cal Hageroll is a 79 year old [...] ALLERGIES No Known Allergies 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 Jimmy Carrizales [facility] Clinical Pharmacist, Pharmacy Anticoagulation Clinic Pharmacy Anticoagulation Clinic Pager: [phone]. Twin Cole [facility] 03/06/2025 12:38 PM Signed Patient [...] anticoagulant - No Twin Cole, [facility] Jimmy Carrizales [facility] 03/13/2025 7:40 AM Signed Cal Lua Paula was sent MyChart message and reminded to test INR today or as soon as possible. Jimmy Carrizales [facility] Alejandro Molina [facility] 03/20/2025 3:45 PM Signed No INR has been received or is in process at this time, will add to discharge list and start the discharge process at this time. Alejandro Molina [facility] Daniel (Piano Professor)Ashley 03/24/2025 10:52 AM Signed No return call from patient. Letter sent. FINAL ATTEMPT letter sent at this time. If no response from patient within 3 weeks of letter being sent, patient will be discharged from PAC at that time. Will also route to referring MD as FYI and to see if office can assist in reaching patient. Ashley Sanchez CPhT (Administrative Underwriter) Pharmacy Anticoagulation Clinic Guanakito Reno MD 03/24/2025 [...] mg table (more content not included)... Normal [facility] CNPNon 01-31-2025 CNPN Telephone (PHAMTE) -------- CAL MITCHELL ([id number]) 1945 M Date Time Provider Department 01/31/25 KAMRAN AYON During your visit today, we recorded the following information about you: Kamran Ayon bobbi 01/31/2025 12:55 PM Signed [facility] Ambulatory Pharmacy Anticoagulation Clinic Anticoagulation Episode Summary Anticoagulation Care Providers Provider Role Specialty Phone number Guanakito Reno MD [facility] Family Medicine [phone] Cal Mitchell is a 79 year old [...] ALLERGIES No Known Allergies 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 Kamran yAon RPh Clinical Pharmacist, Pharmacy Anticoagulation Clinic Pharmacy Anticoagulation Clinic Pager: [phone]. Kamran Ayon RPh 02/14/2025 9:53 AM Signed [...] Cmt: INR Home Test Result Primary Visit Diagnosis:penitentiary (current) use of anticoagulants [...] (NITROQUICK) 0.4 (more content not included)... Normal [facility] CBC W Auto Differential pane l (Bld)on 01-21-2025 Basophils (Bld) [#/Vol] 0.07 10*3/uL Normal <0.11 [facility] Comment on above: Order Comment: Speci men Type: BLOOD SPECIMENOrdering Facility: [facility] Address: [address] [place] [address] Performed By: #### 5 7021-8 ####[facility] LABCLIA [id number] [address], [facility] [place] Basophils/100 WBC (Bld) 0.9 % Normal [facility] Comment on above: Order Comment: Speci men Type: BLOOD SPECIMENOrdering Facility: [facility] Address: [address] [place] [address] Performed By: #### 5 7021-8 ####[facility] LABCLIA [id number] [address], [place] [address] [place] Differential cell count method Nom (Bld) Auto Normal [facility] Comment on above: Order Comment: Speci men Type: BLOOD SPECIMENOrdering Facility: [facility] Address: [address] [place] [address] Performed By: #### 5 7021-8 ####[facility] LABCLIA [id number] [place] [address] [place] Eosinophils (Bld) [#/Vol] 0.25 10*3/uL Normal <0.46 [facility] Comment on above: Order Comment: Speci men Type: BLOOD SPECIMENOrdering Facility: [facility] Address: [address] [place] [address] Performed By: #### 5 7021-8 ####[facility] LABCLIA [id number] [place] [id number] [place] Eosinophils/100 WBC (Bld) 3.3 % Normal [facility] Comment on above: Order Comment: Speci men Type: BLOOD SPECIMENOrdering Facility: [facility] Address: [address] [place] [address] Performed By: #### 5 7021-8 ####[facility] LABCLIA [id number] [place] [address] [place] Erythrocyte distribution width (RBC) [Ratio] 14.8 % Normal 11.5-15.0 [facility] Comment on above: Order Comment: Speci men Type: BLOOD SPECIMENOrdering Facility: [facility] Address: [address] [place] [address] Performed By: #### 5 7021-8 ####[facility] LABCLIA [id number] [address], [place] [address] [place] Hematocrit (Bld) [Volume fraction] 41.2 % Normal 39.0-51.0 [facility] Comment on above: Order Comment: Speci men Type: BLOOD SPECIMENOrdering Facility: [facility] Address: [address] [place] [address] Performed By: #### 5 7021-8 ####[facility] LABIA [id number] [place] [address] [place] Hemoglobin (Bld) [Mass/Vol] 12.5 g/dL Low 13.0-17.0 [facility] Comment on above: Order Comment: Speci men Type: BLOOD SPECIMENOrdering Facility: [facility] Address: [address] [place] [address] Performed By: #### 5 7021-8 ####[facility] LABIA [id number] [place] [address] [place] Immature granulocytes (Bld) [#/Vol] 10*3/uL Normal <0.10 [facility] Comment on above: Order Comment: Speci men Type: BLOOD SPECIMENOrdering Facility: [facility] Address: [address] [place] [address] Performed By: #### 5 7021-8 ####[facility] LABCLIA [id number] [place] [address] [place] Immature granulocytes/100 WBC (Bld) 0.3 % Normal [facility] Comment on above: Order Comment: Speci men Type: BLOOD SPECIMENOrdering Facility: [facility] Address: [address] [place] [address] Performed By: #### 5 7021-8 ####[facility] LABCLIA [id number] [place] [address] [place] Lymphocytes (Bld) [#/Vol] 1.28 10*3/uL Normal 1.00-4.00 [facility] Comment on above: Order Comment: Speci men Type: BLOOD SPECIMENOrdering Facility: [facility] Address: [address] [place] [address] Performed By: #### 5 7021-8 ####[facility] LABCLIA [id number] [place] [address] [place] Lymphocytes/100 WBC (Bld) 17.1 % Normal [facility] Comment on above: Order Comment: Speci men Type: BLOOD SPECIMENOrdering Facility: [facility] Address: [address] [place] [address] Performed By: #### 5 7021-8 ####[facility] LABCLIA [id number] [place] [address] [place] MCH (RBC) [Entitic mass] 29.3 pg Normal 26.0-34.0 [facility] Comment on above: Order Comment: Speci men Type: BLOOD SPECIMENOrdering Facility: [facility] Address: [address] [place] [address] Performed By: #### 5 7021-8 ####[facility] LABCLIA [id number] [place] [address] [place] MCHC (RBC) [Mass/Vol] 30.3 g/dL Low 30.5-36.0 [facility] Comment on above: Order Comment: Speci men Type: BLOOD SPECIMENOrdering Facility: [facility] Address: [address] [place] [address] Performed By: #### 5 7021-8 ####[facility] LABCLIA [id number] [place] [address] [place] MCV (RBC) [Entitic vol] 96.7 fL Normal 80.0-100.0 [facility] Comment on above: Order Comment: Speci men Type: BLOOD SPECIMENOrdering Facility: [facility] Address: [address] [place] [address] Performed By: #### 5 7021-8 ####[facility] LABIA [id number] [place] [address] [place] Monocytes (Bld) [#/Vol] 0.61 10*3/uL Normal <0.87 [facility] Comment on above: Order Comment: Speci men Type: BLOOD SPECIMENOrdering Facility: [facility] Address: [address] [place] [address] Performed By: #### 5 7021-8 ####[facility] LABIA [id number] [place] [address] [place] Monocytes/100 WBC (Bld) 8.2 % Normal [facility] Comment on above: Order Comment: Speci men Type: BLOOD SPECIMENOrdering Facility: [facility] Address: [address] [place] [address] Performed By: #### 5 7021-8 ####[facility] LABIA [id number] [place] [address] [place] Neutrophils (Bld) [#/Vol] 5.25 10*3/uL Normal 1.45-7.50 [facility] Comment on above: Order Comment: Speci men Type: BLOOD SPECIMENOrdering Facility: [facility] Address: [address] [place] [address] Performed By: #### 5 7021-8 ####[facility] LABIA [id number] [place] [address] [place] Neutrophils/100 WBC (Bld) 70.2 % Normal [facility] Comment on above: Order Comment: Speci men Type: BLOOD SPECIMENOrdering Facility: [facility] Address: [address] [place] [address] Performed By: #### 5 7021-8 ####[facility] LABCLIA [id number] [facility] [address] [place] [address] [place] Nucleated RBC (Bld) [#/Vol] 10*3/uL Normal <0.01 [facility] Comment on above: Order Comment: Speci men Type: BLOOD SPECIMENOrdering Facility: [facility] Address: [address] [place] [address] Performed By: #### 5 7021-8 ####[facility] LABCLIA [id number] [facility] [address] [place] [address] [place] Nucleated RBC/100 WBC (Bld) [Ratio] 0.0 /100 WBC Normal [facility] Comment on above: Order Comment: Speci men Type: BLOOD SPECIMENOrdering Facility: [facility] Address: [address] [place] [address] Performed By: #### 5 7021-8 ####[facility] LABCLIA [id number] [address] [place] [address] [place] Platelet mean volume (Bld) [Entitic vol] 10.3 fL Normal 9.0-12.7 [facility] Comment on above: Order Comment: Speci men Type: BLOOD SPECIMENOrdering Facility: [facility] Address: [address] [place] [address] Performed By: #### 5 7021-8 ####[facility] LABCLIA [id number] [address] [place] [address] [place] Platelets (Bld) [#/Vol] 198 10*3/uL Normal 150-400 [facility] Comment on above: Order Comment: Speci men Type: BLOOD SPECIMENOrdering Facility: [facility] Address: [address] [place] [address] Performed By: #### 5 7021-8 ####[facility] LABCLIA [id number] [place] [address] [place] RBC (Bld) [#/Vol] 4.26 10*6/uL Normal 4.20-6.00 [facility] Comment on above: Order Comment: Speci men Type: BLOOD SPECIMENOrdering Facility: [facility] Address: [address] [place] [address] Performed By: #### 5 7021-8 ####[facility] LABCLIA [id number] [place] [address] [place] WBC (Bld) [#/Vol] 7.48 10*3/uL Normal 3.70-11.00 [facility] Comment on above: Order Comment: Speci men Type: BLOOD SPECIMENOrdering Facility: [facility] Address: [address] [place] [address] Performed By: #### 5 7021-8 ####[facility] LABIA [id number] [address] OF [facility] CNOVon 01-21-2025 CNOV Office Visit (FAMPWS ) -------- CAL MITCHELL ([id number]) 1945 M Date Time Provider Department 01/21/25 3:40 PM CAROLINA LANDEROS FAMPWS During your visit today, we recorded the following information about you: Temperature Pulse Blood pressure Weight 97.6 degrees 59/minute 122/60 117 kg Carolina Landeros, SIDE DOOR MAN.[employer] INTERN 01/21/2025 4:11 PM Signed This is a [...] taking lisinopril Monitors bp at home: Yes. Antelope checks it, ok there Denies side effects: [...] pain,every 5 min x3 blood sugar diagnostic (SnapetteTOUCH ULTRA TEST) test strip Test blood sugar(s) [...] (20.0 ttl (more content not included)... Normal [facility] metabolic 2000 panelon 01-21-2025 Albumin [Mass/Vol] 4.1 g/dL Normal 3.9-4.9 [facility] Comment on above: Order Comment: Speci men Type: BLOOD SPECIMENOrdering Facility: [facility] Address: [address] [place] [address] Performed By: #### 2 132-9, 61368-4, 65601-2, LIPNF ####[facility] LABCLIA [id number] [place] [address] [place] ALP [Catalytic activity/Vol] 153 U/L High 38-113 [facility] Comment on above: Order Comment: Speci men Type: BLOOD SPECIMENOrdering Facility: [facility] Address: [address] [place] [address] Performed By: #### 2 132-9, 80880-7, 43346-0, LIPNF ####[facility] LABCLIA [id number] [place] [address] [place] ALT [Catalytic activity/Vol] 19 U/L Normal 10-54 [facility] Comment on above: Order Comment: Speci men Type: BLOOD SPECIMENOrdering Facility: [facility] Address: [address] [place] [address] Performed By: #### 2 132-9, 06066-7, 48067-6, LIPNF ####[facility] LABCLIA [id number] [place] [address] [place] Anion gap [Moles/Vol] 15 mmol/L Normal 8-15 [facility] Comment on above: Order Comment: Speci men Type: BLOOD SPECIMENOrdering Facility: [facility] Address: [address] [place] [address] Performed By: #### 2 132-9, 63731-8, 10827-4, LIPNF ####[facility] LABCLIA [id number] [place] [id number] [place] AST [Catalytic activity/Vol] 23 U/L Normal 14-40 [facility] Comment on above: Order Comment: Speci men Type: BLOOD SPECIMENOrdering Facility: [facility] Address: [address] [place] [address] Performed By: #### 2 132-9, 37556-4, 76557-4, LIPNF ####[facility] LABCLIA [id number] [place] [address] [place] Bilirubin [Mass/Vol] 0.6 mg/dL Normal 0.2-1.3 [facility] Comment on above: Order Comment: Speci men Type: BLOOD SPECIMENOrdering Facility: [facility] Address: [address] [place] [address] Performed By: #### 2 132-9, 14234-9, , LIPNF ####[facility] LABCLIA [id number] [place] [address] [place] Calcium [Mass/Vol] 8.8 mg/dL Normal 8.5-10.2 [facility] Comment on above: Order Comment: Speci men Type: BLOOD SPECIMENOrdering Facility: [facility] Address: [address] [place] [address] Performed By: #### 2 132-9, 64417-9, 52670-2, LIPNF ####[facility] LABCLIA [id number] [place] [address] [place] Chloride [Moles/Vol] 106 mmol/L Normal 98-107 [facility] Comment on above: Order Comment: Speci men Type: BLOOD SPECIMENOrdering Facility: [facility] Address: [address] [place] [address] Performed By: #### 2 132-9, 11953-4, 94257-7, LIPNF ####[facility] LABCLIA [id number] [place] [address] [place] CO2 [Moles/Vol] 21 mmol/L Low 22-30 [facility] Comment on above: Order Comment: Speci men Type: BLOOD SPECIMENOrdering Facility: [facility] Address: [address] [place] [address] Performed By: #### 2 132-9, 12496-1, 62969-8, LIPNF ####[facility] LABCLIA [id number] [place] [address] [place] Creatinine [Mass/Vol] 2.34 mg/dL High 0.73-1.22 [facility] Comment on above: Order Comment: Speci men Type: BLOOD SPECIMENOrdering Facility: [facility] Address: [address] [place] [address] Performed By: #### 2 132-9, 89228-0, , LIPNF ####[facility] LABCLIA [id number] [place] [address] [place] Creatinine and Glomerular filtration rate.predicted panel (S/P/Bld) 27 mL/min/1.73m??? Low >=60 [facility] Comment on above: Order Comment: Jocelini men Type: BLOOD SPECIMENOrdering Facility: [facility] Address: [address] [place] [address] Result Comment: Lina mated Glomerular Filtration Rate [...] actual GFR. Performed By: #### 2 132-9, 19329-5, 61541-2, LIPNF ####[facility] LABCLIA [id number] [place] [id number] [place] Glucose [Mass/Vol] 122 mg/dL High 74-99 [facility] Comment on above: Order Comment: Speci men Type: BLOOD SPECIMENOrdering Facility: [facility] Address: [address] [place] [address] Result Comment: The [place] Diabetes Association (ADA) provides guidance for cutoff [...] Standards of Medical Care in Diabetes 2016, [place] Diabetes Association. Diabetes Care. 2016.39(Suppl 1). Performed By: #### 2 132-9, 57465-5, , LIPNF ####[facility] LABCLIA [id number] [place] [address] [place] Potassium [Moles/Vol] 4.3 mmol/L Normal 3.7-5.1 [facility] Comment on above: Order Comment: Speci men Type: BLOOD SPECIMENOrdering Facility: [facility] Address: [address] [place] [address] Performed By: #### 2 132-9, , , LIPNF ####[facility] LABCLIA [id number] [place] [address] [place] Protein [Mass/Vol] 7.2 g/dL Normal 6.3-8.0 [facility] Comment on above: Order Comment: Speci men Type: BLOOD SPECIMENOrdering Facility: [facility] Address: [address] [place] [id number] Performed By: #### 2 132-9, , , LIPNF ####[facility] LABCLIA [id number] [address] [address] [place] Sodium [Moles/Vol] 142 mmol/L Normal 136-144 [facility] Comment on above: Order Comment: Marcelle men Type: BLOOD SPECIMENOrdering Facility: [facility] Address: [address] [place] [address] Performed By: #### 2 132-9, 71073-2, , LIPNF ####[facility] LABCLIA [id number] [address] [address] [place] Urea nitrogen [Mass/Vol] 29 mg/dL High 9-24 [facility] Comment on above: Order Comment: Marcelle men Type: BLOOD SPECIMENOrdering Facility: [facility] Address: [address] [place] [address] Performed By: #### 2 132-9, 04785-3, , LIPNF ####[facility] LABIA [id number] [address] [address] [place] HbA1c (Bld)on 01-21-2025 Average glucose Estimated from glycated hemoglobin (Bld) [Mass/Vol] 146 mg/dL Normal [facility] Comment on above: Order Comment: Marcelle [facility] Type: BLOOD SPECIMENOrdering Facility: [facility] Address: [address] [place] [address] Result Comment: eAG: (Estimated average glucose) is a calculated value from HgbA1c and is car sales representative of the average blood glucose level in the last 2-3 month period. Performed By: #### 5 5454-3 ####[facility] LABIA [id number] [place] [address] [place] HbA1c (Bld) [Mass fraction] 6.7 % High 4.3-5.6 [facility] Comment on above: Order Comment: [facility]ocelinnick [facility] Type: BLOOD SPECIMENOrdering Facility: [facility] Address: [address] [place] [address] Result Comment: Amer ican Diabetes Association guidelines indicate that patients with HgbA1c in the range 5.7-6.4% are at increased risk for development of diabetes, and intervention by lifestyle modification may be beneficial. HgbA1c greater or equal to 6.5% is considered diagnostic of diabetes. Performed By: #### 5 5454-3 ####[facility] LABCLIA [id number] [place] [address] [place] LIPID PANEL, NONFASTINGon Cholesterol [Mass/Vol] 164 mg/dL Normal <200 [facility] Comment on above: Order Comment: Speci men Type: BLOOD SPECIMENOrdering Facility: [facility] Address: [address] [place] [address] Result Comment: <200 mg/dL, Desirable 200-239 mg/dL, Borderline high >239 mg/dL, High Performed By: #### 2 132-9, 25751-5, , LIPNF ####[facility] LABCLIA [id number] [address] STATES OF [facility] HDL CHOLESTEROL, NF 42 mg/dL Normal >39 [facility] Comment on above: Order Comment: Speci men Type: BLOOD SPECIMENOrdering Facility: [facility] Address: [address] [place] [address] Result Comment: 40-5 9 mg/dL, Acceptable >59 mg/dL, High: Negative risk factor for coronary heart disease <40 mg/dL, Low: Positive risk factor for coronary heart disease Performed By: #### 2 132-9, 39467-5, , LIPNF ####[facility] LABIA [id number] [address] [place] LDL CHOLESTEROL, NF 96 mg/dL Normal <100 [facility] Comment on above: Order Comment: Speci [facility] Type: BLOOD SPECIMENOrdering Facility: [facility] Address: [address] [place] [address] Result Comment: <100 mg/dL, Optimal 100-129 mg/dL, Near optimal/above optimal 130-159 mg/dL, Borderline high 160-189 mg/dL, High >189 mg/dL, Very high Secondary prevention optimal LDL Cholesterol levels are recommended to be < 70 mg/dL Performed By: #### 2 132-9, 90722-4, 94520-0, LIPNF ####[facility] LABCLIA [id number] [place] [address] [facility] LDL/HDL RATIO, NF 2.29 mg/dL Normal <2.54 [facility] Comment on above: Order Comment: Speci men Type: BLOOD SPECIMENOrdering Facility: [facility] Address: [address] [place] [address] Result Comment: Refe rence: 1. National Cholesterol Education Program ATP III Guideline At-A-Glance Quick Desk Reference: National Heart, Lung, and Blood [place]. National Institutes of Health. 2001: NIH Publication No. 01-3305. 2. An International Atherosclerosis Society position paper: global recommendations for the management of dyslipidemia: executive summary, Atherosclerosis. 2014: 232(2):410-413. Performed By: #### 2 132-9, 46792-9, 57655-0, LIPNF ####[facility] LABCLIA [id number] [address] [place] NON HDL CHOL, NF 122 mg/dL Normal <130 [facility] Comment on above: Order Comment: Speci men Type: BLOOD SPECIMENOrdering Facility: [facility] Address: [address] [place] [address] Result Comment: <130 mg/dL, Optimal 130-159 mg/dL, Near optimal/above optimal 160-189 mg/dL, Borderline high 190-219 mg/dL, High >219 mg/dL, Very high Secondary prevention optimal non HDL Cholesterol levels are recommended to be <100 mg/dL Performed By: #### 2 132-9, 81742-4, 48724-8, LIPNF ####[facility] LABIA [id number] [address] STATES OF [facility] T CHOL/HDL RATIO NF 3.90 mg/dL Normal <5.10 [facility] Comment on above: Order Comment: Speci men Type: BLOOD SPECIMENOrdering Facility: [facility] Address: [address] [place] [address] Performed By: #### 2 132-9, 93482-0, 76736-7, LIPNF ####[facility] LABCLIA [id number] [address] [address] [place] TRIGLYCERIDES, NF 129 mg/dL Normal <150 [facility] Comment on above: Order Comment: Speci men Type: BLOOD SPECIMENOrdering Facility: [facility] Address: [address] [place] [address] Result Comment: <150 mg/dL, Normal 150-199 mg/dL, Borderline high 200-499 mg/dL, High >499 mg/dL, Very high Performed By: #### 2 132-9, 53071-0, , LIPNF ####[facility] LABCLIA [id number] [place] [address] [place] VLDL CHOLESTEROL, NF 26 mg/dL Normal <30 [facility] Comment on above: Order Comment: Speci men Type: BLOOD SPECIMENOrdering Facility: [facility] Address: [address] [place] [address] Performed By: #### 2 132-9, 44598-4, , LIPNF ####[facility] LABCLIA [id number] [place] [id number] [place] Magnesium SerPl-mCncon 01-21 Magnesium [Mass/Vol] 2.3 mg/dL Normal 1.7-2.3 [facility] Comment on above: Order Comment: Speci men Type: BLOOD SPECIMENOrdering Facility: [facility] Address: [address] [place], [place] [id number] Performed By: #### 2 132-9, 35618-7, , LIPNF ####[facility] LABCLIA [id number] [place] [id number] [place] Vit B12 SerPl-mCncon 025 Cobalamin (Vitamin B12) [Mass/Vol] 385 pg/mL Normal 232-1245 [facility] Comment on above: Order Comment: Speci men Type: BLOOD SPECIMENOrdering Facility: [facility] Address: [address] [place] [address] Performed By: #### 2 132-9, 99632-9, 33632-7, LIPNF ####[facility] LABCLIA [id number] JESICA MARSHALL [address] OF [facility] CNPNon 01-08-2025 CNPN Telephone (PHAMTE) -------- CAL MITCHELL ([id number]) 1945 M Date Time Provider Department 01/08/25 RUTHIE CUEVAS During your visit today, we recorded the following information about you: Ruthie Cuevas bobbi 01/08/2025 9:14 AM Signed [facility] Ambulatory Pharmacy Anticoagulation Clinic Anticoagulation Episode Summary Anticoagulation Care Providers Provider Role Specialty Phone number Guanakito Reno MD [facility] Family Medicine [phone] Cal Hageroll is a 79 year old [...] Pharmacy Anticoagulation Clinic Pharmacy Anticoagulation Clinic Pager: [phone]. Ruthie Cuevas RPh 01/29/2025 11:08 AM Addendum Cal Mitchell was called and reminded to test INR today or as soon as possible. LVMX for January. 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 Dx: 250.00. Insulin: No Problem List As Of Date 01/08/2025 (more content not included)... Normal [facility] CAL MITCHELL ([id number]) 1945 M Date Time Provider Department 12/30/24 TWIN COLE During your visit today, we recorded the following information about you: Twin Cole [facility] 12/30/2024 9:14 AM Signed [facility] Ambulatory Pharmacy Anticoagulation Clinic Anticoagulation Episode Summary Anticoagulation Care Providers Provider Role Specialty Phone number Guanakito Reno MD [facility] Medicine [phone] Cal Mitchell is a 79 year old [...] doses of warfarin. Twin Cole [facility] Clinical Pharmacist, Pharmacy Anticoagulation Clinic Pharmacy Anticoagulation Clinic Pager: [phone]. Octavio (Piano Professor)Ruben 12/30/2024 9:15 AM Signed De called regarding INR result for patient. Result has been addressed below, no further action needed. Ruben Cunningham, Administrative Underwriter (storage brine worker) Pharmacy Anticoagulation Clinic Jimmy Carrizales [facility] 01/07/2025 12:02 PM Signed Cal Mitchell was called, lvmx and reminded to test INR today or as soon as possible given that we left a VM last week also. [facility] As of Date: 12/30/2024 (No [...] No - Lancets (ONE TOUCH DELICA) [facility] lancets Test blood sugar(s (more content not included)... Normal [facility] 12-11-2024 [facility] Telephone (SANJAYE) -------- CAL MITCHELL ([id number]) 1945 M Date Time Provider Department 12/11/24 JIMMY CARRIZALES During your visit today, we recorded the following information about you: [facility]/11/2024 9:51 AM Signed [facility] Ambulatory Pharmacy Anticoagulation Clinic Anticoagulation Episode Summary Anticoagulation Care Providers Provider Role Specialty Phone number Guanakito Reno MD [facility] Medicine [phone] Cal Mitchell is a 79 year old [...] doses of warfarin. Jimmy Carrizales [facility] Clinical Pharmacist, Pharmacy Anticoagulation Clinic Pharmacy Anticoagulation Clinic Pager: [phone]. Ruthie Cuevas RPh 12/25/2024 11:14 AM Signed [...] sugar grey (more content not included)... Normal [facility] CNPNon 11-26-2024 CNPN Telephone (SANJAYE) -------- CAL MITCHELL ([id number]) 1945 M Date Time Provider Department 11/26/24 TWIN COLE During your visit today, we recorded the following information about you: Twin Cole bobbi 11/26/2024 5:29 PM Signed [facility] Ambulatory Pharmacy Anticoagulation Clinic Anticoagulation Episode Summary Anticoagulation Care Providers Provider Role Specialty Phone number Guanakito Reno MD [facility] Family Medicine [phone] Cal Mitchell is a 79 year old [...] doses of warfarin. Twin Cole [facility] Clinical Pharmacist, Pharmacy Anticoagulation Clinic Pharmacy Anticoagulation Clinic Pager: [phone]. Yamilka Heath RN 11/27/2024 8:43 AM Signed Chris Ruggiero left a VM regarding the patient's INR result on 11/26/2024. Noted result has been addressed below. BENJIE Cardenas Kim [facility] 12/10/2024 10:31 AM Signed Cal Mitchell was called and reminded to test INR today or as soon as possible. Left VM on January's number. [facility] Allergies As of Date: 11/26/2024 [...] No - Lancets (ONE TOUCH DELICA) [facility] lancets Test blood sugar(s) one time daily. Dx: 250.00. Insulin: No Problem Lis (more content not included)... Normal [facility] CNPNon 10-28-2024 CNPN Telephone (PHAMTE) -------- CAL MITCHELL ([id number]) 1945 M Date Time Provider Department 10/28/24 ALEJANDRO MOLINA During your visit today, we recorded the following information about you: Alejandro Molina RPh 10/28/2024 5:07 PM Signed [facility] Ambulatory Pharmacy Anticoagulation Clinic Anticoagulation Episode Summary Anticoagulation Care Providers Provider Role Specialty Phone number Guanakito Reno MD [facility] Family Medicine [phone] Cal Mitchell is a 79 year old [...] instructed to call Pharmaceutical [facility]tico[facility] at [phone] with any questions or concerns. Alejandro Molina [facility] Clinical Pharmacist, Pharmacy Anticoagulation Clinic Pharmacy Anticoagulation Clinic Pager: [phone] Alejandro Molina [facility] 11/11/2024 4:42 PM Signed Patient was due to test INR today. Will continue to monitor for results. Will follow up in one week if no results received. Alejandro Molina [facility] 11/18/2024 4:27 PM Signed Cal Mitchell was called and reminded to test INR today or as soon as possible. Alejandro oMlina [facility] 11/25/2024 2:53 PM Signed Added to discharge list Daniel (Piano Professor)Ashley 11/26/2024 2:43 PM Signed DISCHARGE No return call from patient. Letter sent. FINAL ATTEMPT letter sent at this time. If no response from patient within 4 weeks, patient will be discharged from PAC at that time. Will also route to referring MD as FYI and to see if office can assist in reaching patient. Ashley Sanchez CPhT (Administrative Underwriter) Pharmacy Anticoagulation Clinic Guanakito Reno MD 11/26/2024 [...] spoke to Ashlyn. Gave them the pharmacy [facility] phone number and they are going [...] anymore. 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 CHANCE Ramirez (Piano Professor)Ashley 11/26/2024 5:07 PM Signed PATIENT CALL Patient [...] dosing once received. PAC will await results. sAhley Sanchez ([facility] (more content not included)... Normal [facility] CAL MITCHELL ([id number]) 1945 M Date Time Provider Department 10/21/24 [...] No - Lancets (ONE TOUCH DELICA) [facility] lancets Test blood sugar(s) one time daily. [...] stenosis of unspecified carotid a*10/25/2013 03/26/2024 Frequency [[id number]] 02/11/2016 03/26/2024 BPH (benign prostatic hypertrophy) with urinary*02/11/2016 Adhesive capsulitis of right shoulder [M75.01] 05/15/2018 Aortic stenosis [I35.0] 05/24/2018 CKD (chronic kidney disease) stage 3, GFR 30-59*05/24/2018 03/26/2024 Lung (more content not included)... [facility] CNPN Telephone (PHAMTE) -------- CAL MITCHELL ([id number]) 1945 M Date Time Provider Department 10/01/24 [place] During your visit today, we recorded the following information about you: Twin Cole [facility] 10/01/2024 9:42 AM Signed [facility] Ambulatory Pharmacy Anticoagulation Clinic Anticoagulation Episode Summary Anticoagulation Care Providers Provider Role Specialty Phone number Guanakito Reno MD [facility] Family Medicine [phone] Cal Mitchell is a 79 year old [...] Pharmacy Anticoagulation Clinic Pharmacy Anticoagulation Clinic Pager: [phone]. Twin Cole RPh 10/15/2024 12:10 PM Signed [...] tablet Dissolve (more content not included)... Normal [facility] 08-26-2024 CNPN Telephone (PHAMTE) -------- CAL MITCHELL ([id number]) 1945 M Date Time Provider Department 08/26/24 ALEJANDRO MOLINA During your visit today, we recorded the following information about you: Alejandro Molina RPh 08/26/2024 6:35 AM Signed [facility] Ambulatory Pharmacy Anticoagulation Clinic Anticoagulation Episode Summary Anticoagulation Care Providers Provider Role Specialty Phone number Guanakito Reno MD [facility] Family Medicine [phone] Cal Hageroll is a 79 year old [...] warfarin instructions: 5 mg every day Sent Max-Viz message Advised patient to continue current weekly dose as noted above Next INR check due on 09/09/2024 Alejandro Molina [facility] Clinical Pharmacist, Pharmacy Anticoagulation Clinic Pharmacy Anticoagulation Clinic Pager: [phone]. Alejandro Molina RPh 09/09/2024 4:38 PM Signed [...] No - Lancets (ONE TOUCH DELICA) [facility] lancets Test blood sugar(s) one time daily. Dx: 250.00. Insulin: No Problem List As Of Date 08/26/2024 Noted Resolved Hyperlipidemia, mixed [E78.2] Essential hypertension [I10] Peripheral arterial disease (HCC) [I73.9] Other symptoms involving cardiovascular system * 07/20/2016 ACTINIC KERATOSIS [L57.0] 10/12/2005 IMPACTED CERUMEN [H61.20] (more content not included)... Normal [facility] Molly 08-16-2024 LUCIO Telephone (AGSP) -------- CAL MITCHELL ([id number]) 1945 M Date Time Provider Department 08/16/24 JIMMY STANLEY [facility] During your visit today, we recorded the [...] No - Lancets (ONE TOUCH DELICA) [facility] lancets Test blood sugar(s) one time daily. [...] stenosis of unspecified carotid a*10/25/2013 03/26/2024 Frequency [[id number]] 02/11/2016 03/26/2024 BPH (benign prostatic hypertrophy) with [...] (more content not included)... Normal [facility] ECG B/O W INTERP (MED OFFICE )on 07-10-2024 Sinus rhythm with fi rst degree heart block [facility] US Kidney - bilateral and Ur inary bladderon 05-02-2024 IMPRESSION: No hydronephrosis. Cholelithiasis. Utility Spray Operator: PSCB Transcribe Date/Time: May 02 2024 7:17P Dictated by : TIN COTTER DO This examination was interpreted and the report reviewed and electronically signed by: TIN COTTER DO on May 02 2024 7:19PM [facility] DIVISION OF RADIOLOGY * * *Final [...] Incidentally noted cholelithiasis. DIVISION OF RADIOLOGY Provider, [facility] [place] - 05/02/2024 * * *Final Report* * [...] noted cholelithiasis. IMPRESSION IMPRESSION: No hydronephrosis. Cholelithiasis. Utility Spray Operator: MAC Transcribe Date/Time: May 02 2024 7:17P Dictated by : TIN COTTER DO This examination was interpreted and the report reviewed and electronically signed by: TIN COTTER DO on May 02 2024 7:19PM [facility] Radiology Study observation (narrative) [facility] US Kidney - bilateral and Ur inary bladderOrdered By: Ccf Provider on 05-02-2024 [facility] NT PRO BNPon 03-26-2024 Natriuretic peptide.B prohormone N-Terminal [Mass/Vol] 501 pg/mL High NINF - 450 pg/mL [facility] Natriuretic peptide.B prohor jodie N-Terminal [Mass/Vol]on 03-26-2024 Interpretation and review of laboratory results Abnormal [facility] THYROID STIMULATING HORMONEo n 03-26-2024 TSH Qn 2.950 m[IU]/L [facility] TSH Qnon 03-26-2024 Interpretation and review of laboratory results Normal [facility] CBC panel Auto (Bld)on 03-25 Erythrocyte distribution width (RBC) [Ratio] 14.9 % 11.5 - 15.0 % [facility] Hematocrit (Bld) [Volume fraction] 31.8 % Low 39.0 - 51.0 % [facility] Hemoglobin (Bld) [Mass/Vol] 9.6 g/dL Low 13.0 - 17.0 g/dL [facility] Interpretation and review of laboratory results Abnormal [facility] MCH (RBC) [Entitic mass] 30.9 pg 26.0 - 34.0 pg [facility] MCHC (RBC) [Mass/Vol] 30.2 g/dL Low 30.5 - 36.0 g/dL [facility] MCV (RBC) [Entitic vol] 102.3 fL High 80.0 - 100.0 fL [facility] Nucleated RBC (Bld) [#/Vol] NINF [facility] Platelet mean volume (Bld) [Entitic vol] 9.8 fL 9.0 - 12.7 fL [facility] Platelets (Bld) [#/Vol] 158 10*3/uL [facility] RBC (Bld) [#/Vol] 3.11 10*6/uL Low 4.20 - 6.0 0 m/uL [facility] WBC (Bld) [#/Vol] 4.72 10*3/uL [facility] Comprehensive metabolic 2000 panelOrdered By: Haley Marie on 03-25-2024 Albumin [Mass/Vol] 3.7 g/dL Low 3.9 - 4.9 g/dL [facility] ALP [Catalytic activity/Vol] 109 U/L 38 - 113 U/L [facility] ALT [Catalytic activity/Vol] 15 U/L 10 - 54 U/L [facility] Anion gap [Moles/Vol] 12 mmol/L 8 - 15 mmol/L [facility] AST [Catalytic activity/Vol] 19 U/L 14 - 40 U/L [facility] Bilirubin [Mass/Vol] 0.3 mg/dL 0.2 - 1 .3 mg/dL [facility] Calcium [Mass/Vol] 8.6 mg/dL 8.5 - 10. 2 mg/dL [facility] Chloride [Moles/Vol] 113 mmol/L High 98 - 10 7 mmol/L [facility] CO2 [Moles/Vol] 16 mmol/L Low 22 - 30 mmol/L [facility] Creatinine [Mass/Vol] 2.48 mg/dL High 0.73 - 1.22 mg/dL [facility] GFR/1.73 sq M.predicted among non-blacks MDRD (S/P/Bld) [Vol rate/Area] 26 mL/min/{1.73_m2} Low - PINF [facility] Comment on above: Estimated Glomerular [...] [Mass/Vol] 99 mg/dL 74 - 99 mg/dL [facility] Comment on above: The [place] Diabete s Association (ADA) provides guidance for [...] Standards of Medical Care in Diabetes 2016, [place] Diabetes Association. Diabetes Care. 2016.39(Suppl 1). Interpretation and review of laboratory results Abnormal [facility] Potassium [Moles/Vol] 4.4 mmol/L 3.7 - 5.1 mmol/L [facility] Protein [Mass/Vol] 6.4 g/dL 6.3 - 8.0 g/dL [facility] Sodium [Moles/Vol] 141 mmol/L 136 - 144 mmol/L [facility] Urea nitrogen [Mass/Vol] 49 mg/dL High 9 - 24 mg/dL [facility] ALBUMIN/CREAT RATIO RND URon 08-14-2023 Albumin DL <= 20 mg/L (U) [Mass/Vol] 26.7 mg/L [facility] Albumin/Creatinine (U) [Mass ratio] 27 mg/g <30 mg/g [facility] Creatinine (U) [Mass/Vol] 98.9 mg/dL 20.0 - 300.0 mg/dL [facility] CBC W Auto Differential pane l (Bld)on 08-14-2023 Basophils (Bld) [#/Vol] 0.05 10*3/uL <0.11 k/uL [facility] Basophils/100 WBC (Bld) 0.9 % [facility] Differential cell count method Nom (Bld) Auto [facility] Eosinophils (Bld) [#/Vol] 0.44 10*3/uL <0.46 k/uL [facility] Eosinophils/100 WBC (Bld) 8.3 % [facility] Erythrocyte distribution width (RBC) [Ratio] 14.5 % 11.5 - 15.0 % [facility] Hematocrit (Bld) [Volume fraction] 38.6 % Low 39.0 - 51.0 % [facility] Hemoglobin (Bld) [Mass/Vol] 11.7 g/dL Low 13.0 - 17.0 g/dL [facility] Immature granulocytes (Bld) [#/Vol] <0.10 k/uL [facility] Immature granulocytes/100 WBC (Bld) 0.4 % [facility] Lymphocytes (Bld) [#/Vol] 1.18 10*3/uL 1.00 - 4.00 k/uL [facility] Lymphocytes/100 WBC (Bld) 22.1 % [facility] MCH (RBC) [Entitic mass] 31.3 pg 26.0 - 34.0 pg [facility] MCHC (RBC) [Mass/Vol] 30.3 g/dL Low 30.5 - 36.0 g/dL [facility] MCV (RBC) [Entitic vol] 103.2 fL High 80.0 - 100.0 fL [facility] Monocytes (Bld) [#/Vol] 0.42 10*3/uL <0.87 k/uL [facility] Monocytes/100 WBC (Bld) 7.9 % [facility] Neutrophils (Bld) [#/Vol] 3.22 10*3/uL 1.45 - 7.50 k/uL [facility] Neutrophils/100 WBC (Bld) 60.4 % [facility] Nucleated RBC (Bld) [#/Vol] <0.01 k/uL [facility] Nucleated RBC/100 WBC (Bld) [Ratio] 0.0 /100 WBC [facility] Platelet mean volume (Bld) [Entitic vol] 10.5 fL 9.0 - 12.7 fL [facility] Platelets (Bld) [#/Vol] 144 10*3/uL Low 150 - 400 k/uL [facility] RBC (Bld) [#/Vol] 3.74 10*6/uL Low 4.20 - 6.0 0 m/uL [facility] WBC (Bld) [#/Vol] 5.33 10*3/uL 3.70 - 11.00 k/uL [facility] Comprehensive metabolic 2000 panelon 08-14-2023 Albumin [Mass/Vol] 4.1 g/dL 3.9 - 4.9 g/dL [facility] ALP [Catalytic activity/Vol] 111 U/L 38 - 113 U/L [facility] ALT [Catalytic activity/Vol] 21 U/L 10 - 54 U/L [facility] Anion gap [Moles/Vol] 11 mmol/L 9 - 18 mmol/L [facility] AST [Catalytic activity/Vol] 26 U/L 14 - 40 U/L [facility] Bilirubin [Mass/Vol] 0.5 mg/dL 0.2 - 1 .3 mg/dL [facility] Calcium [Mass/Vol] 8.8 mg/dL 8.5 - 10. 2 mg/dL [facility] Chloride [Moles/Vol] 106 mmol/L High 97 - 10 5 mmol/L [facility] CO2 [Moles/Vol] 24 mmol/L 22 - 30 mmol/L [facility] Creatinine [Mass/Vol] 2.30 mg/dL High 0.73 - 1.22 mg/dL [facility] Estimated Glomerular Filtration Rate 28 mL/min/1.73m Low >=60 mL/min/1.73 m [facility] Glucose [Mass/Vol] 113 mg/dL High 74 - 99 mg/dL [facility] Potassium [Moles/Vol] 4.6 mmol/L 3.7 - 5.1 mmol/L [facility] Protein [Mass/Vol] 7.0 g/dL 6.3 - 8.0 g/dL [facility] Sodium [Moles/Vol] 141 mmol/L 136 - 144 mmol/L [facility] Urea nitrogen [Mass/Vol] 28 mg/dL High 9 - 24 mg/dL [facility] HbA1c (Bld)on 08-14-2023 Average glucose Estimated from glycated hemoglobin (Bld) [Mass/Vol] 108 mg/dL [facility] HbA1c (Bld) [Mass fraction] 5.4 % 4.3 - 5.6 % [facility] Lipid 1996 panelon Cholesterol [Mass/Vol] 165 mg/dL <200 mg/dL [facility] Cholesterol in HDL [Mass/Vol] 44 mg/dL >39 mg/dL [facility] Cholesterol in LDL [Mass/Vol] 100 mg/dL High <100 mg/dL [facility] Cholesterol in LDL/Cholesterol in HDL [Mass ratio] 2.27 {ratio} <2.54 [facility] Cholesterol in VLDL [Mass/Vol] 21 mg/dL <30 mg/dL [facility] Cholesterol non HDL [Mass/Vol] 121 mg/dL <130 mg/dL [facility] Cholesterol.total/Julia sterol in HDL [Mass ratio] 3.75 {ratio} <5.10 [facility] Fasting Time 14 hrs [facility] Triglyceride [Mass/Vol] 106 mg/dL <150 mg/dL [facility] INR FINGERSTICK B/Oon 2021 INR Coag (Bld) [Relative time] 1.9 (self reporting) [facility] INR FINGERSTICK B/Oon 2021 INR Coag (Bld) [Relative time] 2.1 biotel [facility] Quality Check No [facility] Vital Signs Date Time Vital Sign Value Performing Clinician Facility 03-07-2025 12:57-0400 Body height 177.[address] Guanakito Reno MD Work Phone: [facility] 03-07-2025 12:57-0400 Body mass index (BMI) [Ratio] 35.9 kg/m2 Dr. Guanakito Reno MD Work Phone: [facility] 03-07-2025 12:57-0400 Body weight 113.[address] Guanakito Reno MD Work Phone: [facility] 01-21-2025 15:33-0400 Body mass index (BMI) [Ratio] 37.02 kg/m2 Carolina Landeros APRN.[employer] AND [employer]EVER[employer] INTERN Work Phone: [facility] 01-21-2025 15:33-0400 Body temperature 97.59 [degF] Carolina Landeros APRN.[employer]EVER[employer] INTERN Work Phone: [facility] 01-21-2025 15:33-0400 Body weight 117.03 kg Carolina Landeros APRN.[employer]EVER[employer] INTERN Work Phone: [facility] 01-21-2025 15:33-0400 Diastolic blood pressure 60 mm[Hg] Carolina Suppan SIDE DOOR MAN.[employer]EVER[employer] INTERN Work Phone: [facility] 01-21-2025 15:33-0400 Heart rate 59 /min Carolina Suppan SIDE DOOR MAN.[employer] INTERN Work Phone: [facility] 01-21-2025 15:33-0400 SaO2% (BldA) [Mass fraction] 97 % Carolina Suppan SIDE DOOR MAN.[employer]EVER[employer] INTERN Work Phone: [facility] 01-21-2025 15:33-0400 Systolic blood pressure 122 mm[Hg] Carolina Suppan SIDE DOOR MAN.[employer]EVER[employer] INTERN Work Phone: [facility] 08-06-2024 12:57-0400 Body height 177.8 cm Laura Iraheta MD Work Phone: [facility] Comment on above: patient reports 08-06-2024 12:57-0400 Body mass index (BMI) [Ratio] 34.44 kg/m2 Laura Iraheta MD Work Phone: [facility] 08-06-2024 12:57-0400 Body weight 108.86 kg Laura Iraheta MD Work Phone: [facility] 08-06-2024 12:57-0400 Diastolic blood pressure 68 mm[Hg] Laura Iraheta MD Work Phone: [facility] 08-06-2024 12:57-0400 Heart rate 61 /min Laura Iraheta MD Work Phone: [facility] 08-06-2024 12:57-0400 SaO2% (BldA) [Mass fraction] 99 % Laura Iraheta MD Work Phone: [facility] 08-06-2024 12:57-0400 Systolic blood pressure 128 mm[Hg] Laura Iraheta MD Work Phone: [facility] 07-12-2024 11:22-0400 Body height 177.8 cm Guanakito Reno MD Work Phone: [facility] 07-12-2024 11:22-0400 Body mass index (BMI) [Ratio] 34.55 kg/m2 Guanakito Reno MD Work Phone: [facility] 07-12-2024 11:22-0400 Body weight 109.23 kg Guanakito Reno MD Work Phone: [facility] 07-12-2024 11:22-0400 Diastolic blood pressure 62 mm[Hg] Guanakito Reno MD Work Phone: [facility] 07-12-2024 11:22-0400 Heart rate 59 /min Guanakiot Reno MD Work Phone: [facility] 07-12-2024 11:22-0400 Systolic blood pressure 114 mm[Hg] Guanakito Reno MD Work Phone: [facility] 07-10-2024 08:11-0400 Body height 177.8 cm Cal Mondragon MD Work Phone: [facility] Comment on above: Patient reports 07-10-2024 08:11-0400 Body mass index (BMI) [Ratio] 34.49 kg/m2 Cal Mondragon MD Work Phone: [facility] 07-10-2024 08:11-0400 Body weight 109.05 kg Cal Mondragon MD Work Phone: [facility] 07-10-2024 08:11-0400 Diastolic blood pressure 70 mm[Hg] Cal Mondragon MD Work Phone: [facility] 07-10-2024 08:11-0400 Heart rate 94 /min Cal Mondragon MD Work Phone: [facility] 07-10-2024 08:11-0400 SaO2% (BldA) [Mass fraction] 94 % Cal Mondragon MD Work Phone: [facility] 07-10-2024 08:11-0400 Systolic blood pressure 120 mm[Hg] Cal Mondragon MD Work Phone: [facility] 07-10-2024 08:08-0400 Body height 177.8 cm Pam Reddy MD Work Phone: [facility] Comment on above: Patient reports 07-10-2024 08:08-0400 Body mass index (BMI) [Ratio] 34.49 kg/m2 Pam Reddy MD Work Phone: [facility] 07-10-2024 08:08-0400 Body weight 109.05 kg Pam Reddy MD Work Phone: [facility] Comment on above: Fully clothed with shoes on. 07-10-2024 08:08-0400 Diastolic blood pressure 70 mm[Hg] Pam Reddy MD Work Phone: [facility] 07-10-2024 08:08-0400 Heart rate 94 /min Pam Reddy MD Work Phone: [facility] 07-10-2024 08:08-0400 SaO2% (BldA) [Mass fraction] 94 % Pam Reddy MD Work Phone: [facility] 07-10-2024 08:08-0400 Systolic blood pressure 120 mm[Hg] Pam Reddy MD Work Phone: [facility] 06-06-2024 11:31-0400 Body mass index (BMI) [Ratio] 36.03 kg/m2 Carolina Suppan SIDE DOOR MAN.[employer]N Work Phone: [facility] 06-06-2024 11:31-0400 Body weight 110.68 kg Carolina Suppan SIDE DOOR MAN.[employer]N Work Phone: [facility] 06-06-2024 11:31-0400 Diastolic blood pressure 68 mm[Hg] Carolina Suppan SIDE DOOR MAN.[employer]N Work Phone: [facility] 06-06-2024 11:31-0400 Heart rate 71 /min Carolina Suppan SIDE DOOR MAN.[employer]N Work Phone: [facility] 06-06-2024 11:31-0400 Respiratory rate 18 /min Carolina Suppan SIDE DOOR MAN.[employer]N Work Phone: [facility] 06-06-2024 11:31-0400 SaO2% (BldA) [Mass fraction] 99 % Carolina Landeros SIDE DOOR MAN.[employer] INTERN Work Phone: [facility] 06-06-2024 11:31-0400 Systolic blood pressure 144 mm[Hg] Carolina Suppan SIDE DOOR MAN.[employer]N Work Phone: [facility] 06-05-2024 16:41-0400 Body mass index (BMI) [Ratio] 36.04 kg/m2 Valerie Connelly SIDE DOOR MAN.[employer] INTERN Work Phone: [facility] 06-05-2024 16:41-0400 Body temperature 96.6 [degF] Valerie Connelly SIDE DOOR MAN.[employer] INTERN Work Phone: [facility] 06-05-2024 16:41-0400 Body weight 110.7 kg Valerie Connelly SIDE DOOR MAN.[employer]N Work Phone: [facility] 06-05-2024 16:41-0400 Diastolic blood pressure 70 mm[Hg] Valerie Connelly SIDE DOOR MAN.FOOD AND BEVERAGE INTERN Work Phone: [facility] 06-05-2024 16:41-0400 Heart rate 75 /min Valerie Connelly SIDE DOOR MAN.FOOD AND BEVERAGE INTERN Work Phone: [facility] 06-05-2024 16:41-0400 Respiratory rate 19 /min Valerie Connelly SIDE DOOR MAN.FOOD AND BEVERAGE INTERN Work Phone: [facility] 06-05-2024 16:41-0400 SaO2% (BldA) [Mass fraction] 97 % Valerie Connelly SIDE DOOR MAN.FOOD AND BEVERAGE INTERN Work Phone: [facility] 06-05-2024 16:41-0400 Systolic blood pressure 140 mm[Hg] Valerie Connelly SIDE DOOR MAN.FOOD AND BEVERAGE INTERN Work Phone: [facility] 05-06-2024 17:38-0400 Body height 175.3 cm Corrina Lennon SIDE DOOR MAN.FOOD AND BEVERAGE INTERN Work Phone: [facility] 05-06-2024 17:38-0400 Body mass index (BMI) [Ratio] 37.95 kg/m2 Corrina Haagen SIDE DOOR MAN.FOOD AND BEVERAGE INTERN Work Phone: [facility] 05-06-2024 17:38-0400 Body weight 116.57 kg Corrina Haagen SIDE DOOR MAN.FOOD AND BEVERAGE INTERN Work Phone: [facility] 05-06-2024 17:38-0400 Diastolic blood pressure 58 mm[Hg] Corrina Haagen SIDE DOOR MAN.FOOD AND BEVERAGE INTERN Work Phone: [facility] 05-06-2024 17:38-0400 Heart rate 62 /min Corrina Haagen SIDE DOOR MAN.FOOD AND BEVERAGE INTERN Work Phone: [facility] 05-06-2024 17:38-0400 Respiratory rate 14 /min Corrina Haagen SIDE DOOR MAN.FOOD AND BEVERAGE INTERN Work Phone: [facility] 05-06-2024 17:38-0400 SaO2% (BldA) [Mass fraction] 89 % Corrina Haagen SIDE DOOR MAN.FOOD AND BEVERAGE INTERN Work Phone: [facility] 05-06-2024 17:38-0400 Systolic blood pressure 122 mm[Hg] Corrina Haagen SIDE DOOR MAN.FOOD AND BEVERAGE INTERN Work Phone: [facility] 04-08-2024 15:17-0400 Body mass index (BMI) [Ratio] 37.63 kg/m2 Corrina Haagen SIDE DOOR MAN.FOOD AND BEVERAGE INTERN Work Phone: [facility] 04-08-2024 15:17-0400 Body weight 115.58 kg Corrina Haagen SIDE DOOR MAN.FOOD AND BEVERAGE INTERN Work Phone: [facility] 04-08-2024 14:55-0400 Diastolic blood pressure 58 mm[Hg] Corrina Haagen SIDE DOOR MAN.FOOD AND BEVERAGE INTERN Work Phone: [facility] 04-08-2024 14:55-0400 Heart rate 72 /min Corrina Haagen SIDE DOOR MAN.FOOD AND BEVERAGE INTERN Work Phone: [facility] 04-08-2024 14:55-0400 Respiratory rate 16 /min Corrina Haagen SIDE DOOR MAN.FOOD AND BEVERAGE INTERN Work Phone: [facility] 04-08-2024 14:55-0400 Systolic blood pressure 102 mm[Hg] Corrina Haagen SIDE DOOR MAN.FOOD AND BEVERAGE INTERN Work Phone: [facility] 03-26-2024 16:33-0400 Body height 175.3 cm Guanakito Reno MD Work Phone: [facility] 03-26-2024 16:33-0400 Body mass index (BMI) [Ratio] 37.07 kg/m2 Guanakito Reno MD Work Phone: [facility] 03-26-2024 16:33-0400 Body weight 113.85 kg Guanakito Reno MD Work Phone: [facility] 03-26-2024 16:33-0400 Diastolic blood pressure 46 mm[Hg] Guanakito Reno MD Work Phone: [facility] 03-26-2024 16:33-0400 Heart rate 86 /min Guanakito Reno MD Work Phone: [facility] 03-26-2024 16:33-0400 SaO2% (BldA) [Mass fraction] 98 % Guanakito Reno MD Work Phone: [facility] 03-26-2024 16:33-0400 Systolic blood pressure 98 mm[Hg] Guanakito Reno MD Work Phone: [facility] 03-25-2024 14:52-0400 Body mass index (BMI) [Ratio] 37.21 kg/m2 Pam Reddy MD Work Phone: [facility] 03-25-2024 14:52-0400 Body weight 114.31 kg Pam Reddy MD Work Phone: [facility] 03-25-2024 14:52-0400 Diastolic blood pressure 69 mm[Hg] Pam Reddy MD Work Phone: [facility] 03-25-2024 14:52-0400 Heart rate 66 /min Pam Reddy MD Work Phone: [facility] 03-25-2024 14:52-0400 SaO2% (BldA) [Mass fraction] 96 % Pam Reddy MD Work Phone: [facility] 03-25-2024 14:52-0400 Systolic blood pressure 116 mm[Hg] Pam Reddy MD Work Phone: [facility] 12-22-2023 14:55-0500 Body temperature 97.81 [degF] Carolina Suppan SIDE DOOR MAN.LEAD PORTFOLIO MANAGER Work Phone: [facility] 12-22-2023 14:55-0500 Diastolic blood pressure 60 mm[Hg] Carolina Suppan SIDE DOOR MAN.LEAD PORTFOLIO MANAGER Work Phone: [facility] 12-22-2023 14:55-0500 Heart rate 76 /min Carolina Suppan SIDE DOOR MAN.LEAD PORTFOLIO MANAGER Work Phone: [facility] 12-22-2023 14:55-0500 Respiratory rate 18 /min Carolina Suppan SIDE DOOR MAN.LEAD PORTFOLIO MANAGER Work Phone: [facility] 12-22-2023 14:55-0500 SaO2% (BldA) [Mass fraction] 99 % Carolina Suppan SIDE DOOR MAN.LEAD PORTFOLIO MANAGER Work Phone: [facility] 12-22-2023 14:55-0500 Systolic blood pressure 122 mm[Hg] Carolina Suppan SIDE DOOR MAN.LEAD PORTFOLIO MANAGER Work Phone: [facility] 08-14-2023 13:24-0400 Body height 175.3 cm Guanakito Reno MD Work Phone: [facility] 08-14-2023 13:24-0400 Body weight 120.75 kg Guanakito Reno MD Work Phone: [facility] 08-14-2023 13:24-0400 Diastolic blood pressure 68 mm[Hg] Guanakito Reno MD Work Phone: [facility] 08-14-2023 13:24-0400 Heart rate 59 /min Guanakito Reno MD Work Phone: [facility] 08-14-2023 13:24-0400 SaO2% (BldA) [Mass fraction] 99 % Guanakito Reno MD Work Phone: [facility] 08-14-2023 13:24-0400 Systolic blood pressure 120 mm[Hg] Guanakito Reno MD Work Phone: [facility] 02-13-2023 14:39-0400 Body weight 119.75 kg Pam Reddy MD Work Phone: [facility] 02-13-2023 14:39-0400 Diastolic blood pressure 60 mm[Hg] Pam Reddy MD Work Phone: [facility] 02-13-2023 14:39-0400 Heart rate 78 /min Pam Reddy MD Work Phone: [facility] 02-13-2023 14:39-0400 SaO2% (BldA) [Mass fraction] 96 % Pam Reddy MD Work Phone: [facility] 02-13-2023 14:39-0400 Systolic blood pressure 110 mm[Hg] Pam Reddy MD Work Phone: [facility] 02-06-2023 15:29-0400 Body weight 118.39 kg Guanakito Reno MD Work Phone: [facility] 02-06-2023 15:29-0400 Diastolic blood pressure 58 mm[Hg] Guanakito Reno MD Work Phone: [facility] 02-06-2023 15:29-0400 Heart rate 76 /min Guanakito Reno MD Work Phone: [facility] 02-06-2023 15:29-0400 Respiratory rate 16 /min Guanakito Reno MD Work Phone: [facility] 02-06-2023 15:29-0400 SaO2% (BldA) [Mass fraction] 94 % Guanakito Reno MD Work Phone: [facility] 02-06-2023 15:29-0400 Systolic blood pressure 122 mm[Hg] Guanakito Reno MD Work Phone: [facility] 10-04-2022 10:38-0500 Body height 175.3 cm Alondra Prescott DO Work Phone: [facility] 10-04-2022 10:38-0500 Body weight 117.03 kg Alondra Prescott DO Work Phone: [facility] 10-04-2022 10:38-0500 Diastolic blood pressure 66 mm[Hg] Alondra Prescott DO Work Phone: [facility] 10-04-2022 10:38-0500 Heart rate 57 /min Alondra Prescott DO Work Phone: [facility] 10-04-2022 10:38-0500 SaO2% (BldA) [Mass fraction] 100 % Alondra Prescott DO Work Phone: [facility] 10-04-2022 10:38-0500 Systolic blood pressure 122 mm[Hg] Alondra Prescott DO Work Phone: [facility] 08-15-2022 14:50-0400 Body height 175.3 cm Pam Reddy MD Work Phone: [facility] 08-15-2022 14:50-0400 Body weight 119.3 kg Pam Reddy MD Work Phone: [facility] 08-15-2022 14:50-0400 Diastolic blood pressure 62 mm[Hg] Pam Reddy MD Work Phone: [facility] 08-15-2022 14:50-0400 Heart rate 58 /min Pam Reddy MD Work Phone: [facility] 08-15-2022 14:50-0400 Respiratory rate 18 /min Pam Reddy MD Work Phone: [facility] 08-15-2022 14:50-0400 SaO2% (BldA) [Mass fraction] 98 % Pam Reddy MD Work Phone: [facility] 08-15-2022 14:50-0400 Systolic blood pressure 114 mm[Hg] Pam Reddy MD Work Phone: [facility] 01-19-2022 15:14-0400 Body weight 121.11 kg Guanakito Reno MD Work Phone: [facility] 01-19-2022 15:14-0400 Diastolic blood pressure 68 mm[Hg] Guanakito Reno MD Work Phone: [facility] 01-19-2022 15:140400 Heart rate 60 /min Guanakito Reno MD Work Phone: [facility] 01-19-2022 15:14-0400 Systolic blood pressure 124 mm[Hg] Guanakito Reno MD Work Phone: [facility] Encounters Encounter Date Encounter Type Care Provider Facility Start: 08-26-2025 ambulatory Josafat Simon OLS Facil ity:[facility] Start: 08-19-2025 ambulatory Josafat Simon OLS Facil ity:[facility] Start: 08-14-2025 ambulatory Josafat Simon OLS Facil ity:[facility] Start: 07-31-2025 ambulatory Josafat Simon OLS Facil ity:[facility] Start: 07-17-2025 End: 07-17-2025 ambulatory Guanakito Shadia Facility:[facility] Start: 07-08-2025 End: 07-08-2025 ambulatory Josafat Simon OLS Facility:[facility] Start: 06-24-2025 End: 06-24-2025 ambulatory Josafat Simon OLS Facility:[facility] Start: 06-17-2025 ambulatory Josafat Simon OLS Facil ity:[facility] Start: 06-12-2025 End: 06-12-2025 ambulatory Josafat Simon OLS Facility:[facility] Start: 06-10-2025 End: 06-10-2025 ambulatory Bianka ORTEZ Facility:[facility] Start: 06-03-[address] Josafat juarez MD -[facility] Start: 06-03-2025 End: 06-03-2025 ambulatory Guanakito Coulter Facility:[facility] Start: 05-27-[address] Josafat juarez MD -[facility] Start: 05-27-2025 End: 05-27-2025 ambulatory Josafat ORTEZ Facility:[facility] Start: 05-20-2025 End: 05-20-[address] Guanakito Reno MD Work Phone: -[facility] Start: 05-20-2025 End: 05-20-[address] Josafat Simon MD [facility] Start: 05-20-2025 End: 05-20-2025 ambulatory Josafat ORTEZ Facility:[facility] Start: 05-15-2025 ambulatory Josafat ORTEZ Facil ity:[facility] Start: 05-15-[address] Josafat juarez MD [facility] Start: 05-13-[address] Josafat juarez MD [facility] Start: 05-13-2025 End: 05-13-2025 ambulatory Josafat ORTEZ Facility:[facility] Start: 05-08-2025 ambulatory Josafat ORTEZ Facil ity:[facility] Start: 05-08-[address] Josafat juarez MD [facility] Start: 05-06-[address] Josafat juarez MD [facility] Start: 05-06-2025 End: 05-06-2025 ambulatory Josafat ORTEZ Facility:[facility] Start: 05-02-2025 End: 05-02-[address] Burt Zamora MD -[facility] Start: 05-02-2025 End: 05-02-[address] Guanakito Reno MD Work Phone: -[facility] Start: 05-01-2025 ambulatory Josafat ORTEZ Facil ity:[facility] Start: 05-01-[address] Josafat juarez MD [facility] Start: 04-29-[address] Josafat juarez MD [facility] Start: 04-29-2025 End: 04-29-2025 ambulatory Josafat ORTEZ Facility:[facility] Start: 04-24-2025 ambulatory Josafat ORTEZ Facil ity:[facility] Start: 04-24-[address] Josafat juarez MD [facility] Start: 04-17-[address] Bianka Gonzalez MD [facility] Start: 04-17-2025 End: 04-17-2025 ambulatory Bianka ORTEZ Facility:[facility] Start: 04-15-2025 End: 04-15-2025 Telephone encounter Twin Kelsey [facility] Ambulatory Telemanagement Comment on above: Anticoagulation Tele phone Fu (Home INR result) Start: 04-14-2025 End: 04-14-2025 Telephone encounter Guanakito Reno MD Work Phone: [facility] Comment on above: Patient Question Start: 04-14-2025 ambulatory Josafat García Facility :[facility] Start: 04-14-[address] Josafat García MD -Physical Therapy Work Phone: Start: 04-08-2025 End: 04-08-2025 Refill Carolina Landeros SIDE DOOR MAN.FOOD AND BEVERAGE INTERN Work Phone: [facility] Comment on above: Refill Request Start: 03-28-2025 End: 03-28-2025 Telephone encounter Guanakito Reno MD Work Phone: [facility] Comment on above: Faxed to [facility] Start: 03-24-2025 End: 03-24-2025 Telephone encounter Alejandro Molina [facility] Ambulatory Telemanagement Comment on above: Anticoagulation Tele phone Fu (Home INR Result ) Start: 03-07-2025 End: 03-07-[address] Josafat García MD -[facility] Work Phone: Start: 03-07-2025 End: 03-07-2025 ambulatory Guanakito Reno [facility] Start: 03-06-2025 End: 03-06-2025 ambulatory CAROLINA LANDEROS Facility:[facility] Start: 03-05-2025 End: 03-06-2025 Emergency department patient visit KEDAR HERNANDEZ Facility:[facility] Start: 02-20-2025 End: 02-20-2025 Telephone encounter Jimmy Carrizales [facility] Ambulatory Telemanagement Comment on above: Anticoagulation Tele phone Fu (Home INR) Start: 01-31-2025 End: 01-31-2025 Telephone encounter Kamran Ayon [facility] Ambulatory Telemanagement Comment on above: Anticoagulation Tele phone Fu (INR Home Test Result) Start: 01-23-2025 End: 03-25-2025 Follow-up encounter Carolina Landeros APRN.CNP Work Phone: [facility] Start: 01-21-2025 End: 01-21-2025 ambulatory CAROLINA LANDEROS Facility:[facility] Start: 01-21-2025 End: 01-21-2025 Office outpatient visit 25 minutes Carolina Landeros APRN.FOOD AND BEVERAGE INTERN Work Phone: [facility] Comment on above: Hyperlipidemia, mixe d (Primary [...] (HCC); Chronic renal disease, stage IV (HCC); 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; Obesity, Class II, BMI 35-39.9; Viral conjunctivitis; Seasonal allergic rhinitis, unspecified trigger; Bilateral impacted cerumen Start: 01-08-2025 End: 01-15-2025 Telephone encounter Ruthie Cuevas [facility] Ambulatory Telemanagement Comment on above: Anticoagulation Foll ow Up (Home INR result ) Start: 01-07-2025 End: 01-08-2025 Refill Corrina Lennon APRN.FOOD AND BEVERAGE INTERN Work Phone: [facility] Comment on above: Refill Request Start: 12-30-2024 End: 12-30-2024 Telephone encounter Twin Cole [facility] Ambulatory Telemanagement Comment on above: Anticoagulation Tele phone Fu (Home INR result) Start: 12-11-2024 End: 12-11-2024 Telephone encounter Jimmy Carrizales [facility] Ambulatory Telemanagement Comment on above: Anticoagulation Tele phone Fu (Home INR) Start: 11-26-2024 End: 11-26-2024 Telephone encounter Twin Cole [facility] Ambulatory Telemanagement Comment on above: Anticoagulation Tele phone Fu (Home INR result) Start: 10-28-2024 End: 10-28-2024 Telephone encounter Alejandro Molina [facility] Ambulatory Telemanagement Comment on above: Anticoagulation Tele phone Fu (Home INR Result ) Start: 10-21-2024 End: 10-21-2024 Telephone encounter Guanakito Reno MD Work Phone: [facility] Comment on above: Patient Update; Rozina ent Question Start: 10-01-2024 End: 10-01-2024 Telephone encounter Twin Cole [facility]ulatory Telemanagement Comment on above: Anticoagulation Tele phone Fu (Home INR result) Start: 08-26-2024 End: 08-26-2024 Telephone encounter Alejandro Ulysses [facility] Ambulatory Telemanagement Comment on above: Anticoagulation Tele phone Fu (Home INR Result ) Start: 08-19-2024 End: 08-19-2024 ambulatory Melania Galindo RN [facility] Comment on above: ACNiels SMITH RN ( Medication Adherence Review per Request of Payor ) Start: 08-16-2024 End: 08-16-2024 Telephone encounter Jimmy Stanley [facility] Start: 08-06-2024 End: 08-06-2024 Office outpatient new 45 minutes Laura Iraheta MD Work Phone: [facility] Comment on above: Bilateral carotid ar jeanne stenosis (Primary Dx); History of carotid endarterectomy Start: 07-30-2024 End: 07-30-2024 ambulatory Josselyn Mayer SIDE DOOR MAN.FOOD AND BEVERAGE INTERN Work Phone: [facility] [place] Start: 07-30-2024 End: 08-01-2024 Telephone encounter Josselyn Mayer SIDE DOOR MAN.FOOD AND BEVERAGE INTERN Work Phone: [facility] [place] Comment on above: 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 Start: 07-25-2024 End: 07-26-2024 Telephone encounter Jimmy Carrizales [facility] Ambulatory Telemanagement Comment on above: Anticoagulation (Pat ient update) Start: 07-23-2024 End: 07-23-[address] ([facility]Stat) [facility] Start: 07-23-2024 End: 07-23-2024 Subsequent hospital visit by physician [facility] (I-Stat) RADIO [facility] Comment on above: Nonrheumatic aortic valve stenosis [I35.0] Start: 07-15-2024 End: 07-15-2024 Orders Only Valerie Brito APRN.CNP Work Phone: [facility] Comment on above: Paroxysmal atrial fi brillation (HCC) (Primary Dx); Aortic valve stenosis, etiology of cardiac valve disease unspecified Nonrheumatic aortic valve stenosis (Primary Dx); Paroxysmal atrial fibrillation (HCC) Patient Update Results Start: 07-12-2024 End: 07-12-2024 Telephone encounter Guanakito Reno MD Work Phone: [facility] Start: 07-12-2024 End: 07-15-2024 Patient encounter procedure Guanakito Reno MD Work Phone: [facility] [place] Comment on above: Essential hypertensi on (Primary [...] Subsequent hospital visit by physician Ekg/Holter/Event Monitor [facility] Comment on above: Nonrheumatic aortic valve stenosis [I35.0] Start: 07-10-2024 End: 07-10-2024 Patient encounter procedure Cal Mondragon MD Work Phone: [facility] Comment on above: [...] encounter status Pam Reddy MD Work Phone: [facility] Work Phone: Start: 07-05-2024 End: 07-05-2024 Telephone encounter Annamarie Garcia [facility] Comment on above: Anticoagulation Tele phone Fu Start: 2024 End: 2024 Telephone encounter Guanakito Reno MD Work Phone: [facility] Start: 06-18-2024 End: 06-18-2024 Telephone encounter Jimmy Carrizalse [facility] Ambulatory Telemanagement Comment on above: Anticoagulation Tele phone Fu (Home INR) Start: 06-06-2024 End: 06-06-2024 Office outpatient visit 15 minutes Carolina Landeros APRN.FOOD AND BEVERAGE INTERN Work Phone: [facility] Comment on above: Aortic valve stenosi s, etiology of cardiac valve disease unspecified (Primary Dx); Hypertensive kidney disease with stage 3b chronic kidney disease (HCC); Paroxysmal atrial fibrillation (HCC); Benign prostatic hyperplasia without lower urinary tract symptoms; Anemia, unspecified type Start: 06-05-2024 End: 06-05-2024 Patient encounter procedure Valerie Connelly APRN.FOOD AND BEVERAGE INTERN Work Phone: [facility] Comment on above: Blood pressure check (Primary Dx); Leg swelling Start: 06-05-2024 End: 06-05-2024 Patient encounter status Valerie Connelly APRN.FOOD AND BEVERAGE INTERN Work Phone: [facility] Work Phone: Start: 06-03-2024 End: 06-05-2024 ambulatory Guanakito Reno MD Work Phone: [facility] Comment on above: Water pill/ kidney d r # Start: 05-20-2024 Telephone encounter Josselyn Mayer SIDE DOOR MAN.FOOD AND BEVERAGE INTERN Work Phone: [facility] [place] Comment on above: 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 Results Start: 05-17-2024 Telephone encounter Dorothy Joshua [facility] Comment on above: Anticoagulation Tele phone Fu Start: 05-06-2024 End: 05-06-2024 Office outpatient visit 15 minutes Corrina Lennon APRN.FOOD AND BEVERAGE INTERN Work Phone: [facility] [place] Comment on above: Essential hypertensi on (Primary Dx); Hypertensive kidney disease with stage 3 chronic kidney disease, unspecified whether stage 3a or 3b CKD (HCC); Anemia, unspecified type Start: 05-02-2024 End: 05-02-2024 Subsequent hospital visit by physician [facility] Work Phone: Radiology Comment on above: Renal insufficiency [N28.9] Start: 04-24-2024 Telephone encounter [facility]ie [facility] Ambulatory Telemanagement Comment on above: Anticoagulation Tele phone Fu (Home INR) Start: 04-19-2024 Telephone encounter Guanakito Reno MD Work Phone: [facility] [place] Comment on above: Results Start: 04-08-2024 End: 04-08-2024 Office outpatient visit 25 minutes Corrina Lennon APRN.FOOD AND BEVERAGE INTERN Work Phone: [facility] Comment on above: Essential hypertensi on (Primary [...] Guanakito Reno MD Work Phone: [facility] [place] Comment on above: Results Start: 04-04-2024 Telephone encounter Jimmy Carrizales [facility] Ambulatory Telemanagement Comment on above: Anticoagulation Tele phone Fu (Home INR) Start: 03-26-2024 End: 03-26-2024 Patient encounter procedure Guanakito Reno MD Work Phone: [facility] [place] Comment on above: Essential hypertensi on (Primary [...] 03-07-2024 Telephone encounter Jimmy Carrizales [facility] Ambulatory Telemanagement Comment on [...] Office outpatient visit 15 minutes Carolina Landeros APRN.LEAD PORTFOLIO MANAGER Work Phone: [facility] Comment on above: Abrasion of arm, lef t, initial encounter (Primary Dx); Chronic insomnia Start: 12-21-2023 ambulatory Guanakito Reno MD Work Phone: [facility] [place] Comment on above: skin laceration Start: 12-21-2023 Telephone encounter Jimmy Carrizales [facility] Ambulatory Telemanagement Comment on [...] 08-22-2023 Telephone encounter Twin Cole [facility] Ambulatory Telemanagement Comment on above: Anticoagulation Tele phone Fu (Home INR result) Start: 08-16-2023 Telephone encounter Guanakito Reno MD Work Phone: [facility] Comment on above: Results Start: 08-15-2023 Telephone encounter Guanakiot Reno MD Work Phone: [facility] Comment on above: Results Start: 08-14-2023 End: 08-14-2023 Patient encounter procedure Guanakito Reno MD Work Phone: [facility] Comment on above: Onychomycosis (Prima ry [...] Refill Guanakito Reno MD Work Phone: [facility] [place] Comment on above: Refill Request Start: 2023 ambulatory Lizette Cardenas RN [facility] Comment on above: QI SMITH RN ( Medication Adherence review per request of payer) Start: 05-22-2023 Telephone encounter [facility] Comment on above: Anticoagulation Tele phone Fu (Home INR Result ) Start: 04-24-2023 Telephone encounter [facility] Comment on above: Anticoagulation Tele phone Fu (Home INR Result ) Start: 04-19-2023 Refill Guanakito Reno MD Work Phone: [facility] Comment on above: Refill Request Start: 03-28-2023 Telephone encounter [facility] Comment on above: Anticoagulation Tele phone Fu (Home INR result) Start: 02-13-2023 End: 02-13-2023 Patient encounter procedure Pam Reddy MD Work Phone: Cardiology Comment on above: Syncope, unspecified syncope type (Primary Dx); Aortic valve disorder Start: 02-06-2023 End: 02-06-2023 Patient encounter procedure Guanakito Reno MD Work Phone: [facility] Comment on above: Essential hypertensi on [...] Refill Guanakito Reno MD Work Phone: [facility] Comment on above: Refill Request Start: [...] 11-18-2022 Telephone encounter Kamran Ayon [facility] Comment on above: Anticoagulation Tele phone Fu Start: 11-04-2022 Telephone encounter Kamran Ayon [facility] Comment on above: Anticoagulation Tele phone Fu (INR Home Test Result) Start: 11-01-2022 Telephone encounter [facility] Ambulatory Telemanagement Comment [...] Guanakito Reno MD Work Phone: [facility] Comment on above: Orders; Refill Reque st Start: 09-21-2022 Telephone encounter Ruthie Cuevas [facility] Ambulatory Telemanagement Comment on above: Anticoagulation Tele phone Fu (Home INR result expected) Start: 09-07-2022 ambulatory Lizette Cardenas RN [facility] Comment on above: QI SMITH RN ( Medication Adherence review at request of payer) Start: 08-22-2022 Telephone encounter [facility] Comment on above: Anticoagulation (INR result) Start: 08-15-2022 End: 08-15-2022 Patient encounter procedure Pam Reddy MD Work Phone: Cardiology Comment on above: Obesity, Class II, B AR 35-39.9 (Primary Dx); Paroxysmal atrial fibrillation (HCC); Nonrheumatic aortic valve stenosis; Aortic valve disorder Start: 08-01-2022 Telephone encounter [facility] Comment on above: Anticoagulation Tele phone Fu (Home INR Result) Start: 07-22-2022 Refill Guanakito Reno MD Work Phone: [facility] Comment on above: Refill Request Start: 2022 Telephone encounter [facility] Comment on above: Anticoagulation (INR result ) Start: 06-14-2022 ambulatory Nirmala Lim MA [facility] Comment on above: Population Health Na vigation Outreach ([facility] care gaps) Start: 06-06-2022 Telephone encounter [facility] Comment on above: Anticoagulation (Gabrielle e INR) Start: 05-19-2022 Refill Guanakito Reno MD Work Phone: [facility] Comment on above: Refill Request Start: 05-16-2022 Telephone encounter [facility] Comment on above: Anticoagulation Tele phone Fu (Home INR Result) Start: 04-25-2022 Telephone encounter Val Oliver [facility] Comment on [...] ) Start: 02-17-2022 Telephone encounter Jazmyn Garcia [facility] Ambulatory Tele[facility] Comment on above: Anticoagulation Tele phone Fu Start: 02-08-2022 Telephone encounter [facility] Ambulatory Telemanagement Comment on above: Anticoagulation Tele phone Fu (Home INR result) Start: 01-25-2022 Telephone encounter [facility] Tele[facility] Comment on above: Anticoagulation Tele phone Fu (Home INR result) Start: 01-19-2022 End: 01-19-2022 Patient encounter procedure Guanakito Reno MD Work Phone: [facility] Comment on above: Essential hypertensi on (Primary [...] phone Fu Start: 06-07-2018 Ambulatory [facility] Facility :[facility] Start: 11-24-2017 End: 11-24-2017 [facility] Facility:[facility] Procedures Date Procedure Procedure Detail Performing [...] Velasquez with bovine patch angioplasty, 04/17/[address] [facility] History of carotid endarterectomy History of carotid endarterectomy Guanakito Reno MD Work Phone: History of carotid endarterectomy History of carotid endarterectomy Laura Iraheta MD Work Phone: Plan of Treatment Date Care Activity Detail Author Start: 04-22-2031 Urine microalbumin profile [facility] Start: 01-21-2026 Diabetic foot examination Diabetic Foot Exam [facility] Start: 01-21-2026 Hepatitis B surface antibody level LDL Cholesterol [facility] Start: 08-06-2025 End: 09-05-2025 US Carotid arteries - bilateral US CAROTID BILATERAL Radiology Routine Bilateral carotid artery stenosis History of carotid endarterectomy Expected: 08/06/2025 (Approximate), Expires: 09/05/2025 [facility] Work Phone: Comment on above: Expected: 08/06/2025 (Approximate), Expi res: 09/05/2025 Start: 07-23-2025 End: 07-23-2025 Patient encounter procedure 07/23/2025 3:20 PM EDT Office Visit [facility] [address] [place] [address] Guanakito Reno MD [address] [place] [address] 6 month exam [facility] Comment on above: 6 month exam Start: 07-23-2025 Hemoglobin A1c measurement HbA1C [facility] Start: 07-12-2025 Covid-19 Vaccine ( season) Covid-19 Vaccine () [facility] Comment on above: Postponed from 01/09/2025 (Declined at t his time) Start: 07-12-2025 Hepatitis B surface antibody level LDL Cholesterol [facility] Start: 06-16-2025 Influenza vaccination [facility] Start: 05-06-2025 Annual PCP Team Chronic Disease Visit Annual PCP Team Chronic Disease Visit [facility] Start: 05-06-2025 BP Controlled (<130/80) BP Controlled (<130/80) [facility] in Start: 05-02-2025 Plain X-ray of shoulder Shoulder min 2 Views [facility] Start: 05-02-2025 XR Shoulder GE 2 Views [facility] Start: 04-19-2025 Complete blood count Hemoglobin/Hematocrit [facility] Start: 04-19-2025 Creatinine measurement Serum Creatinine [facility] Start: 04-08-2025 Annual PCP Team Chronic Disease Visit Annual PCP Team Chronic Disease Visit [facility] Start: 04-08-2025 BP Controlled (<130/80) BP Controlled (<130/80) [facility] Start: 04-04-2025 Complete blood count Hemoglobin/Hematocrit [facility] Start: 04-04-2025 Creatinine measurement Serum Creatinine [facility] Start: 03-26-2025 Annual PCP Team Chronic Disease Visit Annual PCP Team Chronic Disease Visit [facility] Start: 03-26-2025 BP Controlled (<130/80) BP Controlled (<130/80) [facility] Start: 03-26-2025 Covid-19 Vaccine () Covid-19 Vaccine () [facility] Comment on above: Postponed from 12/14/2023 (Declined at t his time) Start: 03-26-2025 Shingrix Vaccine (1 of 2) Shingrix Vaccine (1 of 2) [facility] Comment on above: Postponed from 1993 (Declined at t his time) Start: 03-25-2025 BP Controlled (<130/80) BP Controlled (<130/80) [facility] Start: 03-25-2025 Complete blood count Hemoglobin/Hematocrit [facility] Start: 03-25-2025 Creatinine measurement Serum Creatinine [facility] Start: 01-21-2025 End: 01-21-2025 Patient encounter procedure 01/21/2025 3:40 PM EDT Office Visit [facility] [address] [place] [address] Carolina Landeros APRN.[employer] AND [employer] INTERN [address] [place] [address] 6 month follow up [facility] Comment on above: 6 month follow up Start: 01-21-2025 End: 04-22-2025 CBC W Auto Differential panel - Blood [facility] Comment on above: Expected: 01/21/2025, Expires: Start: 01-21-2025 End: 04-22-2025 Cobalamin (Vitamin B12) [Mass/volume] in Serum or Plasma [facility] Comment on above: Expected: 01/21/2025, Expires: Start: 01-21-2025 End: 04-22-2025 Comprehensive metabolic 2000 panel - Serum or Plasma [facility] Work Phone: Comment on above: Expected: 01/21/2025, Expires: Start: 01-21-2025 End: 04-22-2025 Hemoglobin A1c in Blood [facility] Comment on above: Expected: 01/21/2025, Expires: Start: 01-21-2025 End: 04-22-2025 LIPID PANEL, NONFASTING [facility] Comment on above: Expected: 01/21/2025, Expires: Start: 01-21-2025 End: 04-22-2025 Magnesium [Mass/volume] in Serum or Plasma [facility] Comment on above: Expected: 01/21/2025, Expires: Start: 01-13-2025 End: 01-13-2025 Patient encounter procedure 01/13/2025 10:40 AM EDT [facility] [address] [place] [address] Guanakito Reno MD [address] [facility] [place] [address] 6 month follow up [facility] Comment on above: 6 month follow up Start: 01-09-2025 Hemoglobin A1c measurement HbA1C [facility] Start: 12-21-2024 BP Controlled (<130/80) BP Controlled (<130/80) [facility] Start: 10-16-2024 Advance Directive Discussion Advance Directive Discussion [facility] Start: 10-16-2024 Medicare Advantage Annual Wellness Visit Medicare [facility] Annual Wellness Visit [facility] Start: 10-04-2024 Hemoglobin A1c measurement HbA1C [facility] Start: 08-14-2024 3 comp foot exam completed Diabetic Foot Exam [facility] Start: 08-14-2024 Annual PCP Team Chronic Disease Visit Annual PCP Team Chronic Disease Visit [facility] Start: 08-14-2024 BP Controlled (<130/80) BP Controlled (<130/80) [facility] Start: 08-14-2024 Complete blood count Hemoglobin/Hematocrit [facility] Start: 08-14-2024 Creatinine measurement Serum Creatinine [facility] Start: 08-14-2024 Diabetic foot examination Diabetic Foot Exam [facility] Start: 08-14-2024 Hemoglobin/Hematocrit Hemoglobin/Hematocrit [facility] Start: 08-14-2024 Hepatitis B surface antibody level LDL Cholesterol [facility] Start: 08-14-2024 Hepatitis B Vaccine (1 of 3 - Risk 3-dose series) Hepatitis B Vaccine (1 of 3 - Risk 3-dose series) [facility] Comment on above: Postponed from 2003 (Declined at t his time) Start: 08-14-2024 RSV Vaccine (1 - 1-dose 60+ series) RSV Vaccine (1 - 1-dose 60+ series) [facility] Comment on above: Postponed from 2003 (Declined at t his time) Start: 08-14-2024 RSV Vaccine (1 - 1-dose 75+ series) RSV Vaccine (1 - 1-dose 75+ series) [facility] Comment on above: Postponed from 2018 (Declined at t his time) Start: 08-14-2024 Serum Creatinine Serum Creatinine [facility] Start: 08-06-2024 End: 08-06-2024 Patient encounter procedure 08/06/2024 1:00 PM EDT Office Visit [facility] [address] [place], [place] [id number] Laura Iraheta MD [address] [facility] [address] [place] [address] Referral from Josselyn Mayer - carotid stenosis 05/02/24 Carotid US [facility] Comment on above: Referral from Josselyn Mayer - carotid s tenosis 05/02/24 Carotid US Start: 07-29-2024 End: 07-29-2024 ambulatory 07/29/2024 11:15 AM EDT Results Only [facility] [address] [place] [address] [facility] Start: 07-23-2024 End: 07-23-2024 Admission to same day surgery center 07/23/2024 10:00 AM EDT - 07/23/2024 11:30 AM EDT Surgery [facility] [address] [place] [address] Pam Reddy MD [address], [address] [place], [place] [id number] CORONARY CATH RIGHT/LEFT HEART ANGIO INTRAPROCEDURAL INJECT IMAGING SUPERVISIO/INTERPRETATIO N [facility] Comment on above: CORONARY CATH RIGHT/LEFT HEART ANGIO INT RAPROCEDURAL INJECT IMAGING SUPERVISIO/INTERPRETATION Start: 07-23-2024 End: 07-23-2024 R & l hrt cath winjx hrt art& l ventr img CORONARY CATH RIGHT/LEFT HEART ANGIO INTRAPROCEDURAL INJECT IMAGING SUPERVISIO/INTERPRETATIO N Valvular heart disease 07/23/2024 10:00 AM EDT [facility] Start: 07-23-2024 Subsequent hospital visit by physician 07/23/2024 10:00 AM EDT Hospital Encounter [facility] [address] [place] [address] Pam Reddy MD [address], [address] [place], [place] [id number] Valvular heart disease [I38] [facility] Comment on above: Valvular heart disease [I38] Start: 07-23-2024 End: 07-23-2024 Patient encounter procedure 07/23/2024 7:30 AM EDT Appointment [facility] [place] [address] 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 [...] atrial fibrillation (HCC) Expected: 07/15/2024, Expires: 10/14/2024 [facility] Work Phone: Comment on above: Expected: 07/15/2024, Expires: Start: 07-12-2024 End: 10-11-2024 CBC W Auto Differential panel - Blood [facility] Comment on above: Expected: 07/12/2024, Expires: 4 Start: 07-12-2024 End: 10-11-2024 Comprehensive metabolic 2000 panel - Serum or Plasma [facility] Comment on above: Expected: 07/12/2024, Expires: Start: 07-12-2024 End: 10-11-2024 Hemoglobin A1c in Blood [facility] Work Phone: Comment on above: Expected: 07/12/2024, Expires: Start: 07-12-2024 End: 10-11-2024 LIPID PANEL, NONFASTING [facility] Comment on above: Expected: 07/12/2024, Expires: Start: 07-12-2024 End: 07-12-2024 Patient encounter procedure 07/12/2024 11:20 AM EDT Office Visit [facility] [address] [facility] [place] [address] Guanakito Reno MD [address] [place] [address] 2 month follow up- stool sample,kidney and meds [facility] Comment on above: 2 month follow up- stool sample,kidney a nd meds Start: 07-10-2024 End: 10-09-2024 Basic metabolic 2000 panel - Serum or Plasma BASIC METABOLIC PANEL Lab Routine Nonrheumatic aortic valve stenosis Expected: 07/10/2024, Expires: 10/09/2024 [facility] Comment on above: Expected: 07/10/2024, Expires: Start: 07-10-2024 End: 10-09-2024 CBC panel - Blood by Automated count COMPLETE BLOOD COUNT Lab Routine Nonrheumatic aortic valve stenosis Expected: 07/10/2024, Expires: 10/09/2024 [facility] Comment on above: Expected: 07/10/2024, Expires: Start: 07-10-2024 End: 10-09-2024 Natriuretic peptide.B prohormone N-Terminal [Mass/volume] in Serum or Plasma NT PRO BNP Lab Routine Nonrheumatic aortic valve stenosis Dyspnea on exertion Expected: 07/10/2024, Expires: 10/09/2024 [facility] Comment on above: Expected: 07/10/2024, Expires: Start: 07-10-2024 End: 10-09-2024 PT panel - Platelet poor plasma by Coagulation assay PROTHROMBIN TIME Lab Routine Nonrheumatic aortic valve stenosis Expected: 07/10/2024, Expires: 10/09/2024 [facility] Comment on above: Expected: 07/10/2024, Expires: Start: 07-10-2024 End: 07-10-2024 Patient encounter procedure [facility] Comment on above: Valve Clinic- Initial Visit- 5M Walk,EKG ,KCCQ Start: 06-16-2024 Covid-19 Vaccine ( season) Covid-19 Vaccine ( season) [facility] Start: 06-16-2024 Covid-19 Vaccine ( season) Covid-19 Vaccine () [facility] Start: 06-16-2024 Influenza vaccination Influenza Vaccine (#1) [facility] Start: 06-06-2024 End: 06-06-2024 Patient encounter procedure 06/06/2024 11:20 AM EDT Office Visit [facility] [place] [address] [place] [address] Carolina Landeros APRN.[employer] [address] [place], [place] [id number] Urgent care follow up [facility] Comment on above: Urgent care follow up Start: 05-06-2024 End: 05-06-2024 Patient encounter procedure 05/06/2024 5:40 PM EDT [facility] [address] [place] [address] Corrina Lennon APRN.[employer] [address] [place] [address] 1 month follow up [facility] Comment on above: 1 month follow up Start: 05-02-2024 End: 05-02-2024 Patient encounter procedure Radiology Comment on above: Renal insufficiency [N28.9] History of carotid e ndarterectomy [Z98.890] Syncope, unspecified syncope type [R55]; Aortic valve disorder [I35.9] Start: 04-08-2024 End: 04-08-2024 Patient encounter procedure 04/08/2024 3:00 PM EDT Office Visit [facility] [place] [address] [place] [address] Corrina Lennon APRN.[employer] AND [employer] INTERN [address] [place] [address] 2 w f/u [facility] Comment on above: 2 w f/u Start: 04-08-2024 End: 03-25-2025 Echocardiography ECHO Cardiology Routine Syncope, unspecified syncope type Aortic valve disorder Expected: 04/08/2024, Expires: 03/25/2025 [facility] Comment on above: Expected: 04/08/2024, Expires: 5 Start: 04-05-2024 End: 07-05-2024 Basic metabolic 2000 panel - Serum or Plasma BASIC METABOLIC PANEL Lab Routine CKD (chronic kidney disease) stage 4, 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/min (HCC) Anemia, unspecified type Expected: 04/05/2024, Expires: 07/05/2024 [facility] Comment on above: Expected: 04/05/2024, Expires: 4 Start: 04-05-2024 End: 07-05-2024 CBC W Auto Differential panel - Blood COMPLETE BLOOD COUNT AND DIFFERENTIAL Lab Routine CKD (chronic kidney disease) stage 4, 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/min (HCC) Anemia, unspecified type Expected: 04/05/2024, Expires: 07/05/2024 [facility] Comment on above: Expected: 04/05/2024, Expires: 4 Start: 03-26-2024 End: 03-26-2024 Patient encounter procedure 03/26/2024 4:40 PM EDT Office Visit [facility] [address] [place] [address] Guanakito Reno MD [address] [place] [address] 3 month f/u [facility] Comment on above: 3 month f/u Start: 03-26-2024 End: 06-25-2024 Basic metabolic 2000 panel - Serum or Plasma BASIC METABOLIC PANEL Lab Routine Renal insufficiency Expected: 03/26/2024, Expires: 06/25/2024 [facility] Comment on above: Expected: 03/26/2024, Expires: 4 Start: 03-26-2024 End: 03-26-2025 CBC W Auto Differential panel - Blood COMPLETE BLOOD COUNT AND DIFFERENTIAL Lab Routine Anemia, unspecified type Expected: 03/26/2024, Expires: 03/26/2025 [facility] Comment on above: Expected: 03/26/2024, Expires: Start: 03-26-2024 End: 03-26-2025 Cobalamin (Vitamin B12) [Mass/volume] in Serum or Plasma VITAMIN B12 Lab Routine Anemia, unspecified type Expected: 03/26/2024, Expires: 03/26/2025 [facility] Comment on above: Expected: 03/26/2024, Expires: Start: 03-26-2024 End: 03-26-2025 Ferritin [Mass/volume] in Serum or Plasma FERRITIN Lab Routine Anemia, unspecified type Expected: 03/26/2024, Expires: 03/26/2025 [facility] Comment on above: Expected: 03/26/2024, Expires: Start: 03-26-2024 End: 03-26-2025 Folate [Mass/volume] in Serum or Plasma FOLATE, SERUM Lab Routine Anemia, unspecified type Expected: 03/26/2024, Expires: 03/26/2025 [facility] Comment on above: Expected: 03/26/2024, Expires: Start: 03-26-2024 End: 06-25-2024 Hemoglobin A1c in Blood HEMOGLOBIN A1C Lab Routine Type 2 diabetes mellitus with stage 3 chronic kidney disease, without long-term current use of insulin, unspecified whether stage 3a or 3b CKD (HCC) Expected: 03/26/2024, Expires: 06/25/2024 [facility] Comment on above: Expected: 03/26/2024, Expires: 4 Start: 03-26-2024 End: 03-26-2025 Hemoglobin.gastrointestin al.lower [Presence] in Stool by Immunoassay IMMUNOCHEMICAL FECAL OCCULT BLOOD TEST Lab Routine Anemia, unspecified type Expected: 03/26/2024, Expires: 03/26/2025 [facility] Comment on above: Expected: 03/26/2024, Expires: Start: 03-26-2024 End: 03-26-2025 Iron and Iron binding capacity panel - Serum or Plasma IRON AND TIBC Lab Routine Anemia, unspecified type Expected: 03/26/2024, Expires: 03/26/2025 [facility] Comment on above: Expected: 03/26/2024, Expires: Start: 03-25-2024 End: 03-25-2024 Patient encounter procedure 03/25/2024 2:40 PM EDT Office Visit Cardiology [address] [place] [id number] Pam Reddy MD [address] [facility], [address] [place] [address] 1 yr f/u Cardiology Comment on above: 1 yr f/u Start: 02-14-2024 BP CONTROLLED (<130/80) BP CONTROLLED (<130/80) [facility] Start: 02-13-2024 Hemoglobin A1c measurement HbA1C [facility] Start: 02-13-2024 Hemoglobin A1c/Hemoglobin.total in Blood HbA1C [facility] Start: 02-07-2024 3 comp foot exam completed DIABETIC FOOT EXAM [facility] Start: 02-07-2024 ANNUAL PCP TEAM CHRONIC DISEASE VISIT ANNUAL PCP TEAM CHRONIC DISEASE VISIT [facility] Start: 02-07-2024 BP CONTROLLED (<130/80) BP CONTROLLED (<130/80) [facility] Start: 02-07-2024 SHINGRIX VACCINE (1 of 2) SHINGRIX VACCINE (1 of 2) [facility] Comment on above: Postponed from 1993 (Insurance Cov erage) Start: 12-14-2023 Covid-19 Vaccine () Covid-19 Vaccine () [facility] Start: 10-16-2023 Advance Directive Discussion Advance Directive Discussion [facility] Start: 10-04-2023 BP CONTROLLED (<130/80) BP CONTROLLED (<130/80) [facility] Start: 08-15-2023 End: 08-15-2024 Basic metabolic 2000 panel - Serum or Plasma BASIC METABOLIC PNL Lab Routine Renal insufficiency Expected: 08/15/2023, Expires: 08/15/2024 [facility] Work Phone: Comment on above: Expected: 08/15/2023, Expires: 4 Start: 08-15-2023 BP CONTROLLED (<130/80) BP CONTROLLED (<130/80) [facility] Start: 08-15-2023 End: 11-14-2023 Urinalysis complete panel - Urine URINALYSIS, WITH MICROSCOPIC Lab Routine Renal insufficiency Expected: 08/15/2023, Expires: 11/14/2023 [facility] Work Phone: Comment on above: Expected: 08/15/2023, Expires: 4 Start: 06-16-2023 Covid-19 Vaccine () Covid-19 Vaccine () [facility] Start: 06-16-2023 Influenza vaccination [facility] Start: 06-08-2023 COVID-19 VACCINE (5 - Moderna series) COVID-19 VACCINE (5 - Moderna series) [facility] Start: 03-29-2023 BP CONTROLLED (<130/80) BP CONTROLLED (<130/80) [facility] Start: 02-20-2023 End: 02-14-2024 Echocardiography ECHO Cardiology Routine Syncope, unspecified syncope type Aortic valve disorder Expected: 02/20/2023, Expires: 02/14/2024 [facility] Work Phone: Comment on above: Expected: 02/20/2023, Expires: 4 Start: 02-06-2023 End: 04-08-2023 ALBUMIN/CREAT RATIO RND UR ALBUMIN/CREAT RATIO RND UR Lab Routine Type 2 diabetes mellitus with stage 3 chronic kidney disease, without long-term current use of insulin, unspecified whether stage 3a or 3b CKD (HCC) Expected: 02/06/2023, Expires: 04/08/2023 [facility] Work Phone: Comment on above: Expected: 02/06/2023, Expires: 3 Start: 02-06-2023 End: 04-08-2023 CBC W Auto Differential panel - Blood CBC + DIFF Lab Routine Type 2 diabetes mellitus with stage 3 chronic kidney disease, without long-term current use of insulin, unspecified whether stage 3a or 3b CKD (HCC) Expected: 02/06/2023, Expires: 04/08/2023 [facility] Work Phone: Comment on above: Expected: 02/06/2023, Expires: Start: 02-06-2023 End: 04-08-2023 Comprehensive metabolic 2000 panel - Serum or Plasma COMP METABOLIC PANEL Lab Routine Type 2 diabetes mellitus with stage 3 chronic kidney disease, without long-term current use of insulin, unspecified whether stage 3a or 3b CKD (HCC) Expected: 02/06/2023, Expires: 04/08/2023 [facility] Work Phone: Comment on above: Expected: 02/06/2023, Expires: Start: 02-06-2023 End: 04-08-2023 Hemoglobin A1c in Blood HGB A1C Lab Routine Type 2 diabetes mellitus with stage 3 chronic kidney disease, without long-term current use of insulin, unspecified whether stage 3a or 3b CKD (HCC) Expected: 02/06/2023, Expires: 04/08/2023 [facility] Work Phone: Comment on above: Expected: 02/06/2023, Expires: 3 Start: 02-06-2023 End: 04-08-2023 Lipid 1996 panel - Serum or Plasma LIPID PANEL BASIC Lab Routine Type 2 diabetes mellitus with stage 3 chronic kidney disease, without long-term current use of insulin, unspecified whether stage 3a or 3b CKD (HCC) Expected: 02/06/2023, Expires: 04/08/2023 [facility] Work Phone: Comment on above: Expected: 02/06/2023, Expires: 3 Start: 01-19-2023 ANNUAL PCP TEAM CHRONIC DISEASE VISIT ANNUAL PCP TEAM CHRONIC DISEASE VISIT [facility] Start: 01-19-2023 BP CONTROLLED (<130/80) BP CONTROLLED (<130/80) [facility] Start: 01-18-2023 HEMOGLOBIN/HEMATOCRIT HEMOGLOBIN/HEMATOCRIT [facility] Start: 04-05-2023 Hepatitis B screening URINE ALBUMIN:CREATININE RATIO [facility] Start: 01-18-2023 SERUM CREATININE SERUM CREATININE [facility] Start: 12-21-2022 Hepatitis B surface antibody level LDL CHOLESTEROL [facility] Start: 10-16-2022 ADVANCE DIRECTIVE DISCUSSION ADVANCE DIRECTIVE DISCUSSION [facility] Start: 08-22-2022 End: 08-15-2023 Echocardiography ECHO Cardiology Routine Nonrheumatic aortic valve stenosis Expected: 08/22/2022, Expires: 08/15/2023 [facility] Work Phone: Comment on above: Expected: 08/22/2022, Expires: 3 Start: 07-20-2022 Hemoglobin A1c/Hemoglobin.total in Blood HBA1C [facility] Start: 06-16-2022 Influenza vaccination [facility] Start: 04-12-2022 COVID-19 VACCINE (4 - Booster for Moderna series) COVID-19 VACCINE (4 - Booster for Moderna series) [facility] Start: 02-18-2022 End: 04-20-2022 Basic metabolic 2000 panel - Serum or Plasma BASIC METABOLIC PNL Lab Routine Essential hypertension with goal blood pressure less than 140/90 Expected: 02/18/2022, Expires: 04/20/2022 [facility] Work Phone: Comment on above: Expected: 02/18/2022, Expires: 2 Start: 02-07-2022 COVID-19 VACCINE (4 - Booster for Moderna series) COVID-19 VACCINE (4 - Booster for Moderna series) [facility] Start: 10-16-2021 ADVANCE DIRECTIVE DISCUSSION ADVANCE DIRECTIVE DISCUSSION [facility] Start: 01-18-2020 3 comp foot exam completed DIABETIC FOOT EXAM [facility] Start: 12-05-2019 Glaucoma screening Dilated Retinal Exam [facility] Start: 12-05-2019 Hepatitis C antibody, confirmatory test DILATED RETINAL EXAM [facility] Start: 2018 RSV Vaccine (1 - 1-dose 75+ series) RSV Vaccine (1 - 1-dose 75+ series) [facility] Start: 2003 Hepatitis B Vaccine (1 of 3 - Risk 3-dose series) Hepatitis B Vaccine (1 of 3 - Risk 3-dose series) [facility] Start: 1993 SHINGRIX VACCINE (1 of 2) SHINGRIX VACCINE (1 of 2) [facility] Start: 1961 BP Controlled (<130/80) BP Controlled (<130/80) [facility] in Start: 1961 HEPATITIS C SCREENING HEPATITIS C SCREENING [facility] Start: 1949 PNEUMOCOCCAL: 65+ (1 - PCV) PNEUMOCOCCAL: 65+ (1 - PCV) [facility] End: 08-09-2025 CTA Abdominal vessels and Pelvis vessels W contrast IV CTA ABD/PEL W IVCON Radiology Routine Nonrheumatic aortic valve stenosis Encounter for preprocedural cardiovascular examination 1 Occurrences starting 07/10/2024 until 08/09/2025 [facility] Work Phone: Comment on above: 1 Occurrences starting 07/10/2024 until 08/09/2025 End: 07-23-2024 CTA Abdominal vessels and Pelvis vessels W contrast IV [facility] Work Phone: Comment on above: 1 Occurrences starting 07/23/2024 until 07/23/2024 End: 08-09-2025 CTA Chest vessels WO and W contrast IV CTA CHEST (GATED) WO/W IVCON Radiology Routine Nonrheumatic aortic valve stenosis Encounter for preprocedural cardiovascular examination 1 Occurrences starting 07/10/2024 until 08/09/2025 [facility] Comment on above: 1 Occurrences starting 07/10/2024 until 08/09/2025 End: 07-23-2024 CTA Chest vessels WO and W contrast IV [facility] Comment on above: 1 Occurrences starting 07/23/2024 until 07/23/2024 ECG COMPLETE ECG COMPLETE ECG Routine Syncope, unspecified syncope type Aortic valve disorder Paroxysmal atrial fibrillation (HCC) Ordered: 03/21/2024 [facility] Work Phone: Comment on above: Ordered: 03/21/2024 End: 07-10-2025 EXTENDED WEAR POWER CUTTING MACHINE OPERATOR PATCH EXTENDED WEAR POWER CUTTING MACHINE OPERATOR PATCH ECG Routine Nonrheumatic aortic valve stenosis 1 Occurrences starting 07/10/2024 until 07/10/2025 [facility] Comment on above: 1 Occurrences starting 07/10/2024 until 07/10/2025 End: 07-10-2024 EXTENDED WEAR POWER CUTTING MACHINE OPERATOR PATCH EXTENDED WEAR POWER CUTTING MACHINE OPERATOR PATCH ECG Routine Nonrheumatic aortic valve stenosis 1 Occurrences starting 07/10/2024 until 07/10/2024 [facility] Work Phone: Comment on above: 1 Occurrences starting 07/10/2024 until 07/10/2024 Hemoglobin.tony velez al.lower [Presence] in Stool by Immunoassay IMMUNOCHEMICAL FECAL OCCULT BLOOD TEST Lab Routine CKD (chronic kidney disease) stage 4, 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/min ([facility]) Anemia, unspecified type Ordered: 04/05/2024 [facility] Work Phone: Comment on above: Ordered: 04/05/2024 Hemoglobin.tony velez al.lower [Presence] in Stool by Immunoassay IMMUNOCHEMICAL FECAL OCCULT BLOOD TEST Lab Routine Screen for colon cancer Ordered: 2024 [facility] Work Phone: Comment on above: Ordered: 2024 OUTSIDE VENDOR CARDI AC OUTPATIENT EXTENDED RHYTHM RECORDING (WITHOUT TELEMETRY) OUTSIDE VENDOR CARDIAC OUTPATIENT EXTENDED RHYTHM RECORDING (WITHOUT TELEMETRY) Holter Routine Syncope, unspecified syncope type Ordered: 02/13/2023 [facility] Work Phone: Comment on above: Ordered: 02/13/2023 Removal impacted cer umen irrigation/lvg unilat AMBULATORY EAR LAVAGE/IRRIGATION Procedures Routine Bilateral impacted cerumen Ordered: 01/21/2025 [facility] Comment on above: Ordered: 01/21/2025 End: 03-26-2025 US Carotid arteries - bilateral US CAROTID ARTERIES GRAY VAS LAB Vascular Lab Routine History of carotid endarterectomy 1 Occurrences starting 03/26/2024 until 03/26/2025 [facility] Work Phone: Comment on above: 1 Occurrences starting 03/26/2024 until 03/26/2025 End: 03-16-2023 US CAROTID ARTERIES GRAY VAS LAB US CAROTID ARTERIES GRAY VAS LAB Vascular Lab Routine Bilateral carotid artery stenosis 1 Occurrences starting 03/18/2022 until 03/16/2023 [facility] Work Phone: Comment on above: 1 Occurrences starting 03/18/2022 until 03/16/2023 End: 10-04-2023 US CAROTID ARTERIES GRAY VAS LAB US CAROTID ARTERIES GRAY VAS LAB Vascular Lab Routine Bilateral carotid artery stenosis 1 Occurrences starting 10/04/2022 until 10/04/2023 [facility] Work Phone: Comment on above: 1 Occurrences starting 10/04/2022 until 10/04/2023 End: 04-25-2025 US Kidney - bilateral and Urinary bladder US KIDNEY/BLADDER Radiology Routine Renal insufficiency 1 Occurrences starting 03/26/2024 until 04/25/2025 [facility] Comment on above: 1 Occurrences starting 03/26/2024 until 04/25/2025 [facility] Immunizations Immunization Date Immunization Notes Care Provider [facility] 07-12-2024 COVID-19 vaccine, ag e 12+ yr (aCon-Hydra DxNTMobile Fuel COMIRNATY) Guanakito Reno MD Work Phone: [facility] 07-12-2024 influenza, high dose seasonal, preservative-free Guanakito Reno MD Work Phone: [facility] 07-12-2024 influenza virus vacc ine, unspecified formulation Guanakito Reno MD Work Phone: [facility] 08-14-2023 COVID-19 vaccine, ag e 12+ yr, season (VtrimNTECH) Guanakito Reno MD Work Phone: [facility] 08-14-2023 influenza (HD-IIV4) vaccine, age 65+ yr, high dose, quadrivalent, PF (FLUZONE HIGH-DOSE) Guanakito Reno MD Work Phone: [facility] 08-14-2023 influenza virus vacc ine, unspecified formulation Ruthie Denisemanuel [facility] 02-06-2023 COVID-19 vaccine, ag e 12+ yr, bivalent (AltarBIONTECH) Guanakito Reno MD Work Phone: [facility] 12-13-2021 COVID-19 vaccine, ag e 12+ yr (PFIZER-BIONTECH - YANES TOP) Gunaakito Reno MD Work Phone: [facility] 04-22-2021 tetanus and diphther ia toxoids, adsorbed, preservative free, for adult use (5 Lf of tetanus toxoid and 2 Lf of diphtheria toxoid) Guanakito Reno MD Work Phone: [facility] 02-16-2021 COVID-19 vaccine, fu ll dose (MODERNA) Guanakito Reno MD Work Phone: [facility] Work Phone: 01-19-2021 COVID-19 vaccine, fu ll dose (MODERNA) Guanakito Reno MD Work Phone: [facility] Work Phone: 07-18-2019 influenza, high dose seasonal, preservative-free Guanakito Reno MD Work Phone: [facility] Work Phone: 07-18-2019 influenza virus vacc ine, unspecified formulation Lizette Cardenas RN [facility] 09-15-2017 influenza, high dose seasonal, preservative-free Guanakito Reno MD Work Phone: [facility] 08-11-2016 influenza, high dose seasonal, preservative-free Guanakito Reno MD Work Phone: [facility] 08-11-2016 pneumococcal polysaccharide vaccine, 23 valent Guanakito Reno MD Work Phone: [facility] 08-10-2015 influenza, high dose seasonal, preservative-free Guanakito Reno MD Work Phone: [facility] 04-09-2015 pneumococcal conjuga te vaccine, 13 valent Guanakito Reno MD Work Phone: [facility] 10-21-2013 influenza virus vacc ine, unspecified formulation Guanakito Reno MD Work Phone: [facility] 08-08-2012 influenza virus vacc ine, unspecified formulation Guanakito Reno MD Work Phone: [facility] Work Phone: 10-12-2005 pneumococcal polysaccharide vaccine, 23 valent Guanakito Reno MD Work Phone: [facility] Work Phone: 12-02-2003 diphtheria and tetan us toxoids, adsorbed for pediatric use Guanakito Reno MD Work Phone: [facility] Work Phone: Payers Date Payer Category Payer Self-pay 2025 Unknown [id number] 2019 Medicare UHC AARP MEDICAR E UHC AARP MEDICARE HMO [id number] 2019-Present [phone] [address] [address] [place] [address] [facility] [id number] 2019 Medicare UHC AAR MEDICAR E UHC AARP MEDICARE HMO [id number] 2019-Present [phone] [address] [address] [place] [address] O [id number] 2019 Medicare (Managed Care) UHC AARP MEDICARE HMO [id number] 2019 Medicare [id number] 2009 Unknown [id number] 2008 Medicare [id number] Medicare [id number] Unknown [id number]. 462 Unknown [id number] 2.16.840.1.051905.3.579.2. 462 Unknown [id number] 2.16.840.1.646814.3.579.2. 462 Unknown [id number] 2.16.840.1.172105.3.579.2. 462 Unknown [id number] 2.16.840.1.962834.3.579.2. 462 Unknown [id number] 2.840.1.944164.3.579.2. 462 Unknown [id number] 2.840.1.171863.3.579.2. 462 Unknown [id number] 2.840.1.032167.3.579.2. 462 Unknown [id number] 2.840.1.543386.3.579.2. 462 Unknown [id number] 2.840.1.030766.3.579.2. 462 Unknown [id number] 2.840.1.113209.3.579.2. 462 Unknown [id number] 2.840.1.014508.3.579.2. 462 Unknown [id number] 2.840.1.713496.3.579.2. 462 Unknown [id number] 2.840.1.546911.3.579.2. 462 Unknown [id number] 2.840.1.636188.3.579.2. 462 Unknown [id number] 2.840.1.080150.3.579.2. 462 Unknown [id number] 2.840.1.669021.3.579.2. 462 Unknown [id number] 2.840.1.996303.3.579.2. 462 Unknown [id number] 2.840.1.346163.3.579.2. 462 Unknown [id number] 2.840.1.088590.3.579.2. 462 Unknown [id number] 2.16.840.1.642402.3.579.2. 462 Unknown [id number] 2.16840.1.182043.3.579.2. 462 Unknown [id number] 2.16.840.1.143846.3.579.2. 462 Unknown [id number] 2.16840.1.391159.3.579.2. 462 Unknown [id number] [id number]. 462 Social History Date Type Detail Facility Start: 08-10-2015 End: 03-06-2025 Tobacco smoking status NHIS Ex-smoker [facility] Start: 12-05-1975 End: 12-05-1985 History of tobacco use Current smoker [facility] Start: 12-05-1975 End: 12-05-1985 History of tobacco use Cigarette Smoker [facility] Start: 01-19-2022 End: 03-06-2025 Alcohol intake Current non-drinker of alcohol (finding) [facility] Start: 10-26-2020 History SDOH Alcohol Frequency 1 [facility] Start: 10-26-2020 History SDOH Alcohol Std Drinks 98 [facility] Start: 05-15-2019 History SDOH Alcohol Comment none now; social in past [facility] Start: 10-26-2020 History SDOH Social Connections Get Together 2 [facility] Start: 10-26-2020 History SDOH Social Connections Living 4 [facility] Start: 10-26-2020 History SDOH Physica l Activity DPW 0 [facility] Start: 10-26-2020 History SDOH Financial 5 [facility] Start: 10-26-2020 Education 14 [facility] Start: 1945 Sex Assigned At Not on file [facility] Start: 01-09-2022 End: 08-15-2022 Exposure to SARS-CoV-2 (event) Not sure [facility] Start: 03-22-2022 End: 04-01-2022 Exposure to SARS-CoV-2 (event) Unable to assess [facility] Work Phone: Start: 08-10-2015 End: 04-11-2023 Cigarettes smoked current (pack per day) - Reported 2 [facility] Start: 08-10-2015 End: 06-05-2024 Tobacco use and exposure Smokeless tobacco non-user [facility] Start: 10-26-2020 End: 04-11-2023 Social connection and isolation panel [facility] Do you belong to any clubs or organizations such as anglican groups, unions, fraternal or athletic groups, or school groups? No [facility] Are you now , , , , never or living with a partner? [facility] How often to you hav e a drink containing alcohol? Never [facility] How many standard dr inks containing alcohol do you have on a typical day? Patient refused [facility] Do you feel stress - tense, restless, nervous, or anxious, or unable to sleep at night because your mind is troubled all the time - these days [OSQ] Only a little [facility] (I/We) worried vannesa er (my/our) food would run out before (I/we) got money to buy more. Never true [facility] Start: 1945 Sex Assigned At Male [facility] Medical Equipment Procedure Code Equipment Code Equipment Origin al Text Equipment Identifier Dates [id number], [id number] Start: 11-11-2011 Comment on above: Test blood sugar(s) one times daily. Dx: 250.00. Insulin: No Test blood sugar(s) one time daily. Dx: 250.00. Insulin: No Goals Date Patient Goal Desired Activity /State Personal health goal Functional Status Date Assessment Result Facility 04-09-2015 Are you deaf, or do you have serious difficulty hearing No 04/09/2015 11:20 AM Stephany Welch MA No [facility] 04-09-2015 Are you blind, or do you have serious difficulty seeing, even when wearing glasses No 04/09/2015 11:20 AM Stephany Welch MA No [facility] 04-09-2015 Do you have serious difficulty walking or climbing stairs No 04/09/2015 11:20 AM Stephany Welch MA No [facility] 04-09-2015 Do you have difficul ty dressing or bathing No 04/09/2015 11:20 AM Stephany Welch MA No [facility] 04-09-2015 Because of a physica l, mental, or emotional condition, do you have difficulty doing errands alone such as visiting a physician's office or shopping No 04/09/2015 11:20 AM EDT Stephany Graves MA No [facility] Mental Status Date Assessment Result Facility 04-09-2015 Because of a physica l, mental, or emotional condition, do you have serious difficulty concentrating, remembering, or making decisions No 04/09/2015 11:20 AM EDT Stephany Graves MA No [facility] Clinical Notes 03-29-2011 to 04-15-2025 Telephone Encounter - [facility] - 04/15/2025 9:09 AM EDTTelephone Encounter - [place] [facility] - 04/15/2025 9:09 AM EDTTelephone Encounter - Leidy Malone RN - 04/14/2025 3:18 PM EDT Note Date & Type Note Facility 04-15-2025 Telephone encount er Note [facility] Ambulatory Pharmacy Anticoagulation Clinic Anticoagulation Episode Summary Anticoagulation Care Providers Provider Role Specialty Phone number Guanakito Reno MD [facility] [phone] Cal Mitchell is a 79 year old [...] Pharmacy Anticoagulation Clinic Pharmacy Anticoagulation Clinic Pager: [phone]. [facility] 04-15-2025 Miscellaneous Notes Formattin g of this note is different from the original. [facility] Ambulatory Pharmacy Anticoagulation Clinic Anticoagulation Episode Summary Anticoagulation Care Providers Provider Role Specialty Phone number Guanakito Reno MD [facility] Medicine [phone] Cal Mitchell is a 79 year old [...] Pharmacy Anticoagulation Clinic Pharmacy Anticoagulation Clinic Pager: [phone]. documented in this encounter [facility] 04-14-2025 Telephone encount er Note Gustavo calls back and notified of provider recommendation below. Voices understanding. Leidy Malone RN [facility] 04-14-2025 Miscellaneous Notes Formattin g [...] him? Please advise documented in this encounter [facility] 04-14-2025 Telephone encount er Note Phoned Gustavo left message to return call and ask to speak to a nurse. [facility] 04-14-2025 Telephone encount er Note yes [facility] 04-14-2025 Telephone encount er Note Patient son in law Chen calling he has been giving the patient Tylenol 500 mg two tablets twice daily since his fracture right shoulder at almost the end of February. He is asking if it is alright that they are still giving it to him? Please advise [facility] 04-08-2025 Telephone encount er Note The following approved medication requests have been transmitted electronically. Requested Prescriptions Pending Prescriptions Disp Refills warfarin (COUMADIN) 5 mg tablet 90 tablet 3 Sig: Take 1 tablet by mouth once daily. warfarin (COUMADIN) 5 mg tablet 30 tablet 0 Sig: Take 1 tablet by mouth once daily. Carolina Landeros APRN.CNP [facility] 04-08-2025 Miscellaneous Notes Formattin g [...] 2025 2:33 PM documented in this encounter [facility] 04-08-2025 Telephone encount er Note [...] Meyer LPN April 08, 2025 2:38 PM [facility] 04-08-2025 Miscellaneous Notes Formattin g [...] 2025 2:38 PM documented in this encounter [facility] 04-08-2025 Telephone encount er Note [...] Meyer LPN April 08, 2025 2:33 PM [facility] 04-08-2025 Evaluation note Diagnosis Hypertensive kidney disease with stage 3 chronic kidney disease, unspecified whether stage 3a or 3b CKD (HCC) Type 2 diabetes mellitus with stage 3 chronic kidney disease, without long-term current use of insulin, unspecified whether stage 3a or 3b CKD (HCC) Chronic renal disease, stage IV (HCC) Chronic kidney disease, Stage IV (severe) documented in this encounter [facility]06-13-2025 Telephone encounter Note* Telephone Encounter - Niels Rodriges RN - 03/28/2025 1:04 PM EDT Faxed recent ov notes to [facility] per daughter, January request. . January reports she talked to [facility] about patient going to live there and [facility] instructed her to have pcp office send an H & P to them for review. [facility]06-13-2025 Miscellaneous Notes* Telephone Encounter - Niels Rodriges RN - 03/28/2025 1:04 PM EDT Faxed recent ov notes to [facility] per daughter, January request. . January reports she talked to [facility] about patient going to live there and [facility] instructed her to have pcp office send an H & P to them for review. documented in this encounterSumma Health W[facility]06-[facility] Telephone encounter Note * Telephone Encounter - Alejandro Molina RPh - 03/24/2025 10:57 AM EDT [facility] Pharmacy Anticoagulation Clinic Anticoagulation Episode Summary Anticoagulation Care Providers Provider Role Specialty Phone number Guanakito Reno MD [facility] [phone] Cal Mitchell is a 79 year old [...] instructed to call [facility] at [phone] with any questionsor concerns. Alejandro Molina RPh Clinical Pharmacist, Pharmacy Anticoagulation Clinic Pharmacy Anticoagulation Clinic Pager: [phone] [facility]06-09-2025 Miscellaneous Notes* Telephone Encounter - Alejandro Molina RPh - 03/24/2025 10:57 AM EDT [facility] Pharmacy Anticoagulation Clinic Anticoagulation Episode Summary Anticoagulation Care Providers Provider Role Specialty Phone number Guanakito Reno MD [facility] [phone] Cal Mitchell is a 79 year old [...] instructed to call [facility] at [phone] with any questionsor concerns. Alejandro Molina RPh Clinical Pharmacist, Pharmacy Anticoagulation Clinic Pharmacy Anticoagulation Clinic Pager: [phone] documented in this encounterSumma Health Wad[facility]05-23-2025 Evaluation note* Diagnosis Onset Date Resolution Status Admit Date Closed fracture of right pro ximal humerus acute March 07, 2025 1 2:49pm [facility] Work Phone: 1([phone]) [phone] Evaluation note* Diagnosis Onset Date Resolution Status Admit Date Closed fracture of right proximal humerus acute March 07, 2025 12:49pm Closed fracture of right proximal humerus acute May 02, 2025 10:11am [facility] Work Phone: 1(963) 994-608505-22-2025 NoteHNO ID: [id number] Author: CAROLNIA LANDEROS APRN.KOURTNEY Service: ? Author Type: Nurse [...] and 9-10/10 with movement. - Currently taking [place] for pain management. - Denies pain elsewhere [...] Insulin: No Lancets (ONE TOUCH DELICA) [facility] [place]ets Test blood sugar(s) one time daily. [...] in a sl (more content not included)... 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 documented in this encounterSumma Health Wad[facility]04-18-2025 Telephone encounter Note * Telephone Encounter - Kamran Ayon RPh - 01/31/2025 12:43 PM EDT [facility] Amb[facility] An[facility]agulation Clinic Anticoagulation Episode Summary Anticoagulation Care Providers Provider Role Specialty Phone number Guanakito Reno MD [facility] [phone] Cal Mitchell is a 79 year old [...] Pharmacy Anticoagulation Clinic Pharmacy Anticoagulation Clinic Pager: [phone]. 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 documented in this encounterSumma Health Wad[facility]04-10-2025 Progress note* Result Encounter Note [...] levels, magnesium, and B12 are all normal. [facility]04-10-2025 Miscellaneous Notes* Result Encounter Note [...] B12 are all normal. documented in this encounterSumma Health Wad[facility] - [facility]04-08-2025 NoteHNO ID: [id number] Author: GEOVANNA HINDS MA Service: ? Author Type: Beef Tagger Type: Progress Notes Filed: 01/21/2025 17:08 Note [...] No oropharyngeal exudate. Eyes: Comments: Conjunctiva gray. Warrens and itchy Cardiovascular: Rate and Rhythm: Normal [...] MG TABLET - COMPREHENSIVE METABOLIC PANEL 12. 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 - ICD9: V58.61, [...] \\ Carolina Landeros APRN.CNP documented in this encounterSumma Health Wadsworth [facility]04-08-2025 Note* Addendum Note - Carolina Landeros APRN.CNP - 01/21/2025 4:54 PM EDTAddended by: CAROLINA LANDEROS on: 01/21/2025 04:54 PM Modules accepted: Orders [facility]04-08-2025 Miscellaneous Notes* Addendum Note - Carolina Landeros APRN.CNP - 01/21/2025 4:54 PM EDTAddended by: CAROLINA LANDEROS on: 01/21/2025 04:54 PM Modules accepted: Orders * Addendum Note - Geovanna Hinds MA - 01/21/2025 4:33 PM EDTAddended by: GEOVANNA HINDS on: 01/21/2025 04:33 PM Modules accepted: Orders documented in this encounterSumma Health Wadsworth - [facility]04-08-2025 Note* Addendum Note - Geovanna Hinds MA - 01/21/2025 4:33 PM EDTAddended by: GEOVANNA HINDS on: 01/21/2025 04:33 PM Modules accepted: Orders [address]08-2025 Instructions* Patient Instructions* Carolina Landeros APRN.CNP [...] up in 6 months documented in this encounterSumma Health Wad[facility]04-08-2025 NoteHNO ID: [id number] Author: CAROLINA LANDEROS APRN.CNP Service: ? Author [...] taking lisinopril Monitors bp at home: Yes. Antelope checks it, ok there Denies side effects: [...] pain,every 5 min x3 blood sugar diagnostic (SnapetteTOUCH ULTRA TEST) test strip Test blood sugar(s) [...] Drug use: No EXAM: (more content not included)...[facility]03-26-2025 Miscellaneous Notes* Telephone Encounter - Josselyn [...] 08, 2025 2:53 PM documented in this encounterSumma Health Wad[facility]03-26-2025 Telephone encounter Note * Telephone [...] Barrow LPN January 08, 2025 2:53 PM [facility]03-26-2025 Telephone encounter Note* Telephone Encounter - Ruthie Cuevas RPh - 01/08/2025 8:51 AM EDT [facility] Ambulatory Pharmacy Anticoagulation Clinic Anticoagulation Episode Summary Anticoagulation Care Providers Provider Role Specialty Phone number Guanakito Reno MD [facility] Family Medicine [phone] Cal Mitchell is a 79 year old [...] doses of warfarin. Ruthie Cuevas [facility] Clinical Pharmacist, Pharmacy Anticoagulation Clinic Pharmacy Anticoagulation Clinic Pager: [phone]. [facility]03-26-2025 Miscellaneous Notes* Telephone Encounter - Ruthie Cuevas RPh - 01/08/2025 8:51 AM EDT [facility] Ambulatory Pharmacy Anticoagulation Clinic Anticoagulation Episode Summary Anticoagulation Care Providers Provider Role Specialty Phone number Guanakito Reno MD [facility] [phone] Cal Mitchell is a 79 year old [...] Pharmacy Anticoagulation Clinic Pharmacy Anticoagulation Clinic Pager: [phone]. documented in this encounterSumma Health Wadsworth - [facility]03-26-2025 Evaluation note* Diagnosis Hypertensive kidney disease with stage 3 chronic kidney disease, unspecified whether stage 3a or 3b CKD (HCC) documented in this encounter [facility]03-17-2025 Telephone encounter Note* Telephone Encounter - Octavio (DesinoRuben Granados - 12/30/2024 9:15 AM EDT Roscoe'larry called regarding INR result for patient. Result has been addressed below, no further action needed. Ruben Cunningham Administrative Underwriter (Ubaldo) Pharmacy Anticoagulation Clinic [facility]03-17-2025 Miscellaneous Notes* Telephone Encounter - Octavio JansenPiano ProfessorRuben Granados - 12/30/2024 9:15 AM EDT De called regarding INR result for patient. Result has been addressed below, no further action needed. Ruben Cunningham Administrative Underwriter (storage brine worker) Pharmacy Anticoagulation Clinic * Telephone Encounter - Twin Cole RPh - 12/30/2024 9:12 AM EDT [facility] Ambulatory Pharmacy Anticoagulation Clinic Anticoagulation Episode Summary Anticoagulation Care Providers Provider Role Specialty Phone number Guanakito Reno MD [facility] [phone] Cal Mitchell is a 79 year old [...] Pharmacy Anticoagulation Clinic Pharmacy Anticoagulation Clinic Pager: [phone]. documented in this encounterSumma Health Wadsworth [facility]03-17-2025 Telephone encounter Note * Telephone Encounter - Twin Cole RPh - 12/30/2024 9:12 AM EDT [facility] Ambulatory Pharmacy Anticoagulation Clinic Anticoagulation Episode Summary Anticoagulation Care Providers Provider Role Specialty Phone number Guanakito Reno MD [facility] [phone] Cal Mitchell is a 79 year old [...] doses of warfarin. Twin Cole [facility] Clinical Pharmacist, Pharmacy Anticoagulation Clinic Pharmacy Anticoagulation Clinic Pager: [phone]. 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 [facility]02-26-2025 Miscellaneous Notes* Telephone Encounter - Jimmy Carrizales RPh - 12/11/2024 9:43 AM EST [facility] Ambulatory Pharmacy Anticoagulation Clinic Anticoagulation Episode Summary Anticoagulation Care Providers Provider Role Specialty Phone number Guanakito Reno MD [facility] [phone] Cal Mitchell is a 79 year old [...] doses of warfarin. Jimmy Carrizales [facility] Clinical Pharmacist, Pharmacy Anticoagulation Clinic Pharmacy Anticoagulation Clinic Pager: [phone]. documented in this encounterSumma Health Wad[facility]02-11-2025 Telephone encounter Note * Telephone Encounter - Twin Cole [facility] - 11/26/2024 5:26 PM EST [facility] Ambulatory Pharmacy Anticoagulation Clinic Anticoagulation Episode Summary Anticoagulation Care Providers Provider Role Specialty Phone number Guanakito Reno MD [facility] [phone] Cal Mitchell is a 79 year old [...] Pharmacy Anticoagulation Clinic Pharmacy Anticoagulation Clinic Pager: [phone]. [facility]02-11-2025 Miscellaneous Notes* Telephone Encounter - Twin Cole RPh - 11/26/2024 5:26 PM EST [facility] Ambulatory Pharmacy Anticoagulation Clinic Anticoagulation Episode Summary Anticoagulation Care Providers Provider Role Specialty Phone number Guanakito Reno MD [facility] Medicine [phone] Cal Mitchell is a 79 year old [...] Pharmacy Anticoagulation Clinic Pharmacy Anticoagulation Clinic Pager: [phone]. documented in this encounterSumma Health Wadsworth [facility]01-13-2025 Telephone encounter Note * Telephone Encounter - Alejandro Molina RPh - 10/28/2024 5:06 PM EST [facility] Ambulatory Pharmacy Anticoagulation Clinic Anticoagulation Episode Summary Anticoagulation Care Providers Provider Role Specialty Phone number Guanakito Reno MD [facility] [phone] Cal Mitchell is a 79 year old [...] instructed to call [facility] at [phone] with any questionsor concerns. Alejandro Molina RPh Clinical Pharmacist, Pharmacy Anticoagulation Clinic Pharmacy Anticoagulation Clinic Pager: [phone] [facility]01-13-2025 Miscellaneous Notes* Telephone Encounter - Alejandro Molina RPh - 10/28/2024 5:06 PM EST [facility] Ambulatory Pharmacy Anticoagulation Clinic Anticoagulation Episode Summary Anticoagulation Care Providers Provider Role Specialty Phone number Guanakito Reno MD [facility] Family Medicine [phone] Cal Mitchell is a 79 year old [...] instructed to call [facility] at [phone] with any questionsor concerns. Alejandro Molina RPh Clinical Pharmacist, Pharmacy Anticoagulation Clinic Pharmacy Anticoagulation Clinic Pager: [phone] documented in this encounterSumma Health Wad[facility]01-06-2025 Telephone encounter Note * Telephone Encounter - Ashley De Dios RN - 10/21/2024 2:58 PM EST Pt ALEC Chen called and is notified of providers message. He voices understanding. Ashley De Dios RN [facility]01-06-2025 Miscellaneous Notes* Telephone Encounter - [...] Please call and advise. documented in this encounterSumma Health Wad[facility] - [facility]01-06-2025 Telephone encounter Note * Telephone [...] not better in one to two weeks [facility] [...] Telephone Encounter - Twin Cole [facility] - 10/01/2024 9:37 AM EST [facility] Ambulatory Pharmacy Anticoagulation Clinic Anticoagulation Episode Summary Anticoagulation Care Providers Provider Role Specialty Phone number Guanakito Reno MD [facility] Medicine [phone] Cal Mitchell is a 79 year old [...] Pharmacy Anticoagulation Clinic Pharmacy Anticoagulation Clinic Pager: [phone]. [facility]12-17-2024 Miscellaneous Notes* Telephone Encounter - Twin Cole RPh - 10/01/2024 9:37 AM EST [facility] Ambulatory Pharmacy Anticoagulation Clinic Anticoagulation Episode Summary Anticoagulation Care Providers Provider Role Specialty Phone number Guanakito Reno MD [facility] [phone] Cal Mitchell is a 79 year old [...] doses of warfarin. Twin Cole [facility] Clinical Pharmacist, Pharmacy Anticoagulation Clinic Pharmacy Anticoagulation Clinic Pager: [phone]. documented in this encounterSumma Health Wadsworth [facility]11-11-2024 Telephone encounter Note * Telephone Encounter - Alejandro Molina RP - 08/26/2024 6:35 AM EST [facility] Ambulatory Pharmacy Anticoagulation Clinic Anticoagulation Episode Summary Anticoagulation Care Providers Provider Role Specialty Phone number Guanakito Reno MD [facility] Family Medicine [phone] Cal Mitchell is a 79 year old [...] warfarin instructions: 5 mg every day Sent Max-Viz message Advised patient to continue current weekly dose as noted above Next INR check due on 09/09/2024 Alejandro Molina RPh Clinical Pharmacist, Pharmacy Anticoagulation Clinic Pharmacy Anticoagulation Clinic Pager: [phone]. [facility]11-11-2024 Miscellaneous Notes* Telephone Encounter - Alejandro Molina RPh - 08/26/2024 6:35 AM EST [facility] Ambulatory Pharmacy Anticoagulation Clinic Anticoagulation Episode Summary Anticoagulation Care Providers Provider Role Specialty Phone number Guanakito Reno MD [facility] [phone] Cal Mitchell is a 79 year old [...] warfarin instructions: 5 mg every day Sent Max-Viz message Advised patient to continue current weekly dose as noted above Next INR check due on 09/09/2024 Alejandro Molina [facility] Clinical Pharmacist, Pharmacy Anticoagulation Clinic Pharmacy Anticoagulation Clinic Pager: [phone]. documented in this encounterSumma Health Wadsworth - [facility]11-04-2024 NoteHNO ID: [id number] Author: MELANIA GALINDO RN Service: ? Author Type: Registered Nurse Type: Progress Notes Filed: 08/19/2024 12:55 Note Text: Summary: Medication Adherence Review per Request of Payor ACNiels LUIS RN Reason for review or outreach: Medication Adherence Review Details: Cholesterol FYI/REQUESTED ACTION: Summary / Findings: Atorvastatin was due for refill on/before 08.09.24. Sent Max-Viz reminder 08.15.24- not read Called patient Patient identified by name and date of . Patient Attributed To: QAE Payer: Ethe[employer] Action Taken: Data submitted to Payer Contact made with patient: No, Left message BENJIE Schreiber RNMadison Health11-04-2024 History of Present illness Narrative* Melania Galindo RN - 08/19/2024 12:51 PM ESTSummary: Medication Adherence Review per Request of Payor ACNiels LUIS RN Reason for review or outreach: Medication Adherence Review Details: Cholesterol FYI/REQUESTED ACTION: Summary / Findings: Atorvastatin was due for refill on/before 08.09.24. Sent Max-Viz reminder 08.15.24- not read Called patient Patient identified by name and date of . Patient Attributed To: QAE Payer: Etherios Action Taken: Data submitted to Payer Contact made with patient: No, Left message BENJIE Schreiber RN documented in this encounterSumma Health Wadsworth - [facility]11-04-2024 NotePatient Outreach ([facility]) CAL MITCHELL ([id number]) 1945 M Date Time Provider Department 08/19/24 MELANIA GALINDO During your visit today, we recorded the following information about you: Melania Galindo RN 08/19/2024 12:55 PM Signed ACM LUIS RN Reason for review or outreach: Medication Adherence Review Details: Cholesterol FYI/REQUESTED ACTION: Summary / Findings: Atorvastatin was due for refill on/before 08.09.24. Sent Max-Viz reminder 08.15.24- not read Called patient Patient identified by name and date of . Patient Attributed To: [facility] Payer: [facility] Action Taken: Data submitted to [...] No - Lancets (ONE TOUCH DELICA) [facility] [place]ancets Test blood sugar(s) one time daily. 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 Cannot tell this Nurse what he is taking and not takiing at this time. Carolin Cantu LPN August 06, 2024 1:29 PM [facility]10-22-2024 Nurse Note* Carolin Cantu LPN - 08/06/2024 1:28 PM EDT Patient not a good historian of medications. Cannot tell this Nurse what he is taking and not takiing at this time. Carolin Cantu LPN August 06, 2024 1:29 PM documented in this encounterSumma Health Wad[facility]10-22-2024 History of Present illness Narrative* Laura Iraheta MD - 08/06/2024 1:25 PM EDT Images from the original note were not included. Heart , Vascular and Thoracic [place] DEPARTMENT OF VASCULAR SURGERY OUTPATIENT VISIT DATE [...] Insulin: No Lancets (ONE TOUCH DELICA) [facility] [place]ancets Test blood sugar(s) one time daily. Dx: 250.00. Insulin: No ALLERGIES: ALLERGIES No Known Allergies REVIEW OF SYSTEM: Constitutional: No weight loss, malaise or fevers. Respiratory: Negative for SOB Cardiovascular: Negative for chest pain or recent AR Gatrointestinal: Negative for abdominal discomfort Genitourinary: Negative [...] 2024 TIME: 4:41 PM documented in this encounterSumma Health Wadsworth [facility]10-17-2024 Telephone encounter Note * Telephone Encounter - Josselyn Mayer APRN.CNP - 08/01/2024 9:56 AM EDT I spoke with Gustavo and communicated recommendations of medical therapy. He reports patient also expressed wanting to continue without any further intervention. Patient and family agreeable to plan. Josselyn Mayer APRN.CNP [facility]10-17-2024 Miscellaneous Notes* Telephone Encounter - [...] Gustavo calls requesting a return call at [phone]. Chely Nicolas RN * Telephone Encounter - Josselyn Mayer APRN.CNP - 07/30/2024 10:34 AM EDT Attempted to contact patient and his family to update him on the treatment plan. Left voicemail requesting phone call back. Josselyn Mayer APRN.CNP documented in this encounterSumma Health Wadsworth [facility]10-16-2024 Telephone encounter Note * Telephone Encounter - Chely Nicolas RN - 07/31/2024 3:53 PM EDT Gustavo calls requesting a return call at [phone]. Chely Nicolas RN [facility]10-15-2024 History of Present illness Narrative* [...] Josselyn Mayer APRN.CNP 07/30/2024 documented in this encounterSumma Health Wadsworth - [facility]10-15-2024 Telephone encounter Note * Telephone Encounter - Josselyn Mayer APRN.CNP - 07/30/2024 10:34 AM EDT Attempted to contact patient and his family to update him on the treatment plan. Left voicemail requesting phone call back. Josselyn Mayer APRN.CNP [facility]10-11-2024 Telephone encounter Note* Telephone Encounter [...] to test INR. Kamran Ayon PharmD, BCPS [facility]10-11-2024 Miscellaneous Notes* Telephone Encounter - [...] Telephone Encounter - Jimmy Carrizales [facility] - 07/25/2024 11:45 AM EDT Left voice message asking patient at [phone] (home) or daughter January to call the Anticoagulation Clinic at [phone] re: patient recenly off warfarin for heart cath on 07/23/24. Patient was prescribed Lovenox 100 mg sq Once daily by cardiology. Next Action for Anti coag Management: TM Remote Jimmy Carrizales PharmD., CACP documented in this encounterSumma Health Wadsworth - [facility]10-10-2024 Telephone encounter Note * Telephone Encounter - Jimmy Carrizales RP - 07/25/2024 11:45 AM EDT Left voice message asking patient at [phone] (home) or daughter January to call the Anticoagulation Clinic at [phone] re: patient recenly off warfarin for heart cath on 07/23/24. Patient was prescribed Lovenox 100 mg sq Once daily by cardiology. Next Action for Anti coag Management: TM Remote Jimmy Carrizales PharmD., CACP [facility]10-08-2024 History of Present illness Narrative* Victoria Marks, [...] PATIENT PRESENTS WITH AN IMPLANTABLE OR ATTACHED PLATFORM INSPECTOR: No ALLERGIES: Reviewed and unchanged CONTRAST [...] 2024 TIME: 9:13 AM documented in this encounterSumma Health Wad[facility]09-30-2024 Telephone encounter Note * Telephone Encounter - Josselyn Barrow LPN - 07/15/2024 3:19 PM EDT Notified Gustavo. [facility]09-30-2024 Miscellaneous Notes* Telephone Encounter - [...] proceeding. Teresa Alexis RN documented in this encounterSumma Health Wadsworth - [facility]itt[facility]09-30-2024 Telephone encounter Note * Telephone Encounter - Magdalena Laird LPN - 07/15/2024 3:15 PM EDT Son notified of results and provider message. Magdalena Laird LPN [facility]09-30-2024 Miscellaneous Notes* Telephone Encounter - [...] does off of meds. documented in this encounterSumma Health Wadsworth - [facility]itt[facility] Center09-30-2024 Telephone encounter Note * Telephone Encounter - Guanakito Reno MD - 07/15/2024 2:40 PM EDT Agree. As long as he is aware. [facility]09-30-2024 Telephone encounter Note* Telephone Encounter [...] like PCP recommendationbefore proceeding. Teresa Alexis RN [facility]09-30-2024 Telephone encounter Note* Telephone Encounter - Carolina Alba MA - 07/15/2024 2:14 PM EDT Message left for return call. Carolina Alba MA [facility]09-30-2024 Telephone encounter Note* Telephone Encounter - Guanakito Reno MD - 07/15/2024 1:04 PM EDT Kidney function and anemia are stable. See nephrology as we had recommended. Sugars are overall notbad. Hold on amaryl. Call sugars in two weeks to see how he does off of meds. [facility]09-30-2024 History of Present illness Narrative* Guanakito Reno MD - 07/15/2024 8:03 AM EDT Apparently second visit created in error. documented in this encounterSumma Health Wad[facility] - [facility] Center09-27-2024 Telephone encounter Note * Telephone Encounter - Guanakito Reno MD - 07/12/2024 12:49 PM EDT Noted. Thank you [facility]09-27-2024 Miscellaneous Notes* Telephone Encounter - Guanakito Reno MD - 07/12/2024 12:49 PM EDT Noted. Thank you * Telephone Encounter - Art Estes - 07/12/2024 12:34 PM EDT Attempted to find sooner apt time for patients nephrology apt, no sooner times within [facility] facilities that are faster than patients [facility] [place] documented in this encounterSumma Health W[facility]09-27-2024 Telephone encounter Note * Telephone Encounter - Art Estes - 07/12/2024 12:34 PM EDT Attempted to find sooner apt time for patients nephrology apt, no sooner times within [facility] facilities that are faster than patients [facility] [place] [facility]09-27-2024 History of Present illness Narrative* [...] or worsening shortness of breath. Currently wearing Inaaya heart monitor. Placed yesterday. Follows with Cardiology. [...] Insulin: No Lancets (ONE TOUCH DELICA) [facility] [place] Test blood sugar(s) one time daily. [...] ICD10: G30.9, F01.50, F02.80 - stable. 10. penitentiary (current) use of anticoagulants - ICD9: V58.61, ICD10: Z79.01 Stable. Guanakito Reno MD documented in this encounterSumma Health Wadsworth - [facility]09-25-2024 History of Present illness Narrative* Pam Reddy MD - 07/10/2024 3:07 PM EDT Images from the original note were not included. Pam Reddy MD Interventional Cardiology [address] [place] [address] Chief Complaint Patient presents with: Aortic Stenosis: [...] with significant dementia. Patient follow-up at the [place] office 6 months ago he was completely [...] CTA CHEST (GATED) WO/W IVCON - CARDIAC INDUSTRIAL METHODS CONSULTANT ORDER - EXTENDED WEAR POWER CUTTING MACHINE OPERATOR PATCH - COMPLETE BLOOD COUNT - BASIC [...] to correct any errors. * Josselyn Mayer, SIDE DOOR MAN.FOOD AND BEVERAGE INTERN - 07/10/2024 9:39 AM EDT Procedure Type: [...] 10, 2024 TIME: 8:06 AM PAGER/CONTACT #: [phone] documented in this encounterSumma Health Wad[facility]09-25-2024 Nurse Note* Judy Magana Social Service Agency Director - 07/10/2024 10:00 AM EDT Applied 14 day extended wear EKG patch. Pt verbalized understanding of monitor use / diary. [facility]09-25-2024 Nurse Note* Judy Magana Social Service Agency Director - 07/10/2024 10:00 AM EDT Applied 14 day extended wear EKG patch. Pt verbalized understanding of monitor use / diary. documented in this encounterSumma Health Wad[facility] - [facility]09-25-2024 Instructions* Patient Instructions* Josselyn Mayer [...] process is complete. The content on the [employer] website is not intended nor recommended as a substitute for medical advice, diagnosis, or treatment. Always seek the advice of your own physician or other qualified healthcare professional regarding any medical questions or conditions.. 2016 [employer]. All rights reserved. Topic 83288 Version 5.0 documented in this encounterSumma Health W[facility]09-25-2024 History of Present illness Narrative* Cal Mondragon MD - 07/10/2024 8:37 AM EDT PRIMARY CARE PHYSICIAN: Guanakito Reno [address] [place] [address] Subjective Chief Complaint Patient presents with: Aortic [...] Strip 3 Lancets (ONE TOUCH DELICA) [facility] [place]ancets Test blood sugar(s) one time daily. [...] also refer to vascular surgery and a retail beauty specialist for further evaluation. 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 [facility]09-20-2024 Miscellaneous Notes* Telephone Encounter - Annamarie Garcia RPh - 07/05/2024 9:43 AM EDT [facility] Ambulatory Pharmacy Anticoagulation Clinic Anticoagulation Episode Summary Anticoagulation Care Providers Provider Role Specialty Phone number Guanakito Reno MD [facility] [phone] Cal Mitchell is a 79 year old [...] every day Left voice message And sent Behaviot message Advised patient to continue current weekly dose as noted above Next home INR check scheduled on 07/18/2024 Annamarie Garcia [facility] Clinical Pharmacist, Pharmacy Anticoagulation Clinic Pharmacy Anticoagulation Clinic Pager: [phone]. documented in this encounterSumma Health W[facility]09-03-2024 Telephone encounter Note * Telephone Encounter - Jimmy Carrizales [facility] - 06/18/2024 8:39 AM EDT [facility] Ambulatory Pharmacy Anticoagulation Clinic Anticoagulation Episode Summary Anticoagulation Care Providers Provider Role Specialty Phone number Guanakito Reno MD [facility] [phone] Cal Mitchell is a 78 year old [...] Pharmacy Anticoagulation Clinic Pharmacy Anticoagulation Clinic Pager: [phone]. 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 documented in this encounterSumma Health Wadsworth - [facility] Center08-22-2024 Instructions* Patient Instructions* Carolina Landeros APRN.CNP - 06/06/2024 12:10 PM EDT 1) Stop Actos 2) Stop melatonin 3) Try to increase protein 4) Follow up in 1 months documented in this encounterSumma Health W[facility]08-22-2024 History of Present illness Narrative* Carolina Landeros APRN.[facility] - 06/06/2024 11:39 AM EDT This [...] Insulin: No Lancets (ONE TOUCH DELICA) [facility] [place]ets Test blood sugar(s) one time daily. [...] Normocephalic. Neck: Vascular: Carotid bruit present. Comments: Gary. Carotid murmur likely deferred from aortic stenosis [...] as needed for worsening/no improvement. Carolina Landeros APRN.FOOD AND BEVERAGE INTERN documented in this encounterSumma Health Wad[facility] - [facility]08-21-2024 Telephone encounter Note * Telephone Encounter - Josselyn Barrow LPN - 06/05/2024 4:53 PM EDT Attempted to reach daughter and her is already here with patient. [place] [address]-21-2024 Miscellaneous Notes* Telephone Encounter - Josselyn Barrow [...] for nephrology. If he is looking for acrole, it would probably beDr. Bill? Corrina Lennon APRN.CNP documented in this encounterSumma Health W[facility]08-21-2024 Telephone encounter Note * Telephone [...] can get him scheduled. Corrina Lennon APRN.CNP [facility]08-21-2024 History of Present illness Narrative* Valerie Connelly APRN.CNP - 06/05/2024 4:45 PM EDT This note was created using amBXriter. Subjective Cal Mitchell is a 78 year old male. 78 year old male with PMH HTN, hyperlipidemia, afib, PAD, CKD, DM presents for medical complaints. Acute onset of symptoms was over a week ago Patients daughter had sent in a Dexmo message on 06/03/24. At that time she [...] history is provided by the patient. No hearing officer was used. Edema This is a new [...] change medicines related to chronic conditions. Reviewed Max-Viz messages where patient was requested to be seen in person by PCP Appt made for AM 06/06/24 Valerie Connelly APRN.KOURTNEY documented in this encounterSumma Health W[facility]08-21-2024 Telephone encounter Note * Telephone [...] daughter Elly or son-in-law Gustavo. Thank you. [facility]08-19-2024 Telephone encounter Note* Telephone Encounter - Corrina Lennon APRN.CNP - 06/03/2024 7:42 PM EDT We should probably have him in so we can see his legs and check his blood pressure. Please help schedule. Can we also get him contact info for nephrology. If he is looking for carole, it would probably beDrTitus Khan? Corrina Lennon APRN.KOURTNEY [facility]08-08-2024 Telephone encounter Note* Telephone Encounter - Chely Nicolas RN - 05/23/2024 9:49 AM EDT Images from the original note were not included. Gladys Bella31 minutes ago (9:17 AM) TR Good Morning. Pt is scheduled for Valve Clinic on 07/10/24 at 8:30 am per Josselyn. [facility]08-08-2024 Miscellaneous Notes* Telephone Encounter - [...] PM EDT ----- Message from Josselyn Mayer APRN.FOOD AND BEVERAGE INTERN sent at 05/20/2024 2:28 PM EDT ----- Creatinine 2.3. Per chart review he was asymptomatic but had an episode of syncope. Do you want work up first or just valve clinic? Josselyn ----- Message ----- From: Pam Reddy MD Sent: 05/18/2024 8:44 AM EDT To: Chely Nicolas RN; Josselyn Mayer APRN.FOOD AND BEVERAGE INTERN Aortic stenosis need to establish care at [...] the valve clinic sle documented in this encounterSumma Health Wad[facility]08-08-2024 Telephone encounter Note * Telephone Encounter - Chely Nicolas RN - 05/23/2024 8:27 AM EDT Left message on voicemail requesting pt return call for test results and MD recommendations. Officephone number provided. Chely Nicolas RN [facility]08-08-2024 Telephone encounter Note* Telephone Encounter - Chely Nicolas RN - 05/23/2024 8:26 AM EDT Images from the original note were not included. Pam Reddy MD You; InemanJosselyn APRN.CNP15 hours ago (4:42 PM) Let's see at the valve clinic kam [facility]08-06-2024 Telephone encounter Note* Telephone Encounter - Wilfred June Sarah - 05/21/2024 3:10 PM EDT Patient's son in law called in to confirm appointment with Dr. Reddy. Thanks Claritza Sarah Hardin [facility]08-06-2024 Miscellaneous Notes* Telephone Encounter - Wilfred June [...] you, Josselyn Mayer APRN.CNP documented in this encounterSumma Health Wad[facility] - [facility]08-05-2024 Telephone encounter Note * Telephone [...] EDT To: Chely Nicolas RN; Josselyn Mayer APRN.FOOD AND BEVERAGE INTERN Aortic stenosis need to establish care at the valve clinic kam [facility]08-05-2024 Telephone encounter Note* Telephone Encounter - Josselyn Mayer APRN.FOOD AND BEVERAGE INTERN - 05/20/2024 2:29 PM EDT Attempted to [...] care with Nephrologists. Thank you, Josselyn Mayer APRN.FOOD AND BEVERAGE INTERN [facility] Work Phone: [phone] Telephone encounter Note* Telephone Encounter - Chely Nicolas RN - 05/20/2024 9:59 AM EDT Left message on voicemail requesting pt return call for test results. Office phone number provided. Chely Nicolas RN [facility]08-05-2024 Telephone encounter Note* Telephone Encounter - Chely Nicolas RN - 05/20/2024 9:58 AM EDT ----- Message from Pam Reddy MD sent at 05/18/2024 8:44 AM EDT ----- Aortic stenosis need to establish care at the valve clinic sleik [facility]08-02-2024 Telephone encounter Note* Telephone Encounter - Dorothy Joshua [facility] - 05/17/2024 9:22 AM EDT [facility] Ambulatory Pharmacy Anticoagulation Clinic Anticoagulation Episode Summary Anticoagulation Care Providers Provider Role Specialty Phone number Guanakito Reno MD [facility] [phone] Cal Mitchell is a 78 year old [...] warfarin instructions: 5 mg every day Sent Max-Viz message Advised patient to continue current weekly dose as noted above Next home INR check scheduled on 05/30/2024 Dorothy Joshua RPh Clinical Pharmacist, Pharmacy Anticoagulation Clinic Pharmacy Anticoagulation Clinic Pager: [phone]. 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 documented in this encounterSumma Health Wad[facility]07-22-2024 Instructions* Patient Instructions* Corrina Lennon APRN.CNP - 05/06/2024 6:38 PM EDT Continue to try to get the stool sample. Continue the same medication. Schedule with nephrology (kidney doctor). Recheck with Dr. Reno in 2 months. documented in this encounterSumma Health Wad[facility] - [facility]07-22-2024 History of Present illness Narrative* [...] a fall. Was outside and grabbed the nbse-oh-jsic and shook it for a few seconds [...] 8 hours as needed. blood sugar diagnostic (SnapetteTOUCH ULTRA TEST) test strip Test blood sugar(s) one times daily. Dx: 250.00. Insulin: No Lancets (ONE TOUCH DELICA) [facility] lancets Test blood sugar(s) one time daily. [...] as needed for worsening/no improvement. Corrina Lennon APRN.FOOD AND BEVERAGE INTERN documented in this encounterSumma Health Wad[facility] - [facility]07-18-2024 History of Present illness Narrative* [...] PATIENT PRESENTS WITH AN IMPLANTABLE OR ATTACHED PLATFORM INSPECTOR: No RADIOLOGY DEPARTMENT: Ultrasound PERIPHERAL IV DATA: Not applicable SIGNED BY: Jody Queen RDMS May 02, 2024 10:49 AM documented in this encounterSumma Health Wad[facility]07-15-2024 Telephone encounter Note * Telephone Encounter - Stephany Graves MA - 04/29/2024 9:48 AM EDT Spoke with daughter. She stated she was suppose to call the local soloist dancer but didn't have the number and then forgot to call office to get it. Also she is not able to log into the [employer] account, states she forgot password. I have sent number for Dr. Khan to pt home along with mychart number so she can get [employer] account fixed and call to set up his appt with soloist dancer. Pt needs refill of Lipitor sent to [facility]. Stephany Graves MA [facility]07-15-2024 Miscellaneous Notes* Telephone Encounter - Stephany Graves MA - 04/29/2024 9:48 AM EDT Spoke with daughter. She stated she was suppose to call the local soloist dancer but didn't have the number and then forgot to call office to get it. Also she is not able to log into the [employer] account, states she forgot password. I have sent number for Dr. Khan to pt home along with [employer] number so she can get [employer] account fixed and call to set up his appt with soloist dancer. Pt needs refill of Lipitor sent to [...] nephrology? Was ordered previously. documented in this encounterSumma Health Wad[facility]07-10-2024 Telephone encounter Note * Telephone Encounter - Ruthie Cuevas RP - 04/24/2024 9:45 AM EDT [facility] Ambulatory Pharmacy Anticoagulation Clinic Anticoagulation Episode Summary Anticoagulation Care Providers Provider Role Specialty Phone number Guanakito Reno MD [facility] Medicine [phone] Cal Mitchell is a 78 year old [...] warfarin instructions: 5 mg every day Sent Max-Viz message Advised patient to continue current weekly dose as noted above Next home INR check scheduled on 05/07/2024 Ruthie Cuevas RPh Clinical Pharmacist, Pharmacy Anticoagulation Clinic Pharmacy Anticoagulation Clinic Pager: [phone]. [facility]07-10-2024 Miscellaneous Notes* Telephone Encounter - Ruthie Cuevas RPh - 04/24/2024 9:45 AM EDT [facility] Ambulatory Pharmacy Anticoagulation Clinic Anticoagulation Episode Summary Anticoagulation Care Providers Provider Role Specialty Phone number Guanakito Reno MD [facility] Family Medicine [phone] Cal Mitchell is a 78 year old [...] warfarin instructions: 5 mg every day Sent Max-Viz message Advised patient to continue current weekly dose as noted above Next home INR check scheduled on 05/07/2024 Ruthie Cuevas RPh Clinical Pharmacist, Pharmacy Anticoagulation Clinic Pharmacy Anticoagulation Clinic Pager: [phone]. documented in this encounterSumma Health Wad[facility]07-05-2024 Telephone encounter Note * Telephone Encounter - Geovanna Hinds MA - 04/19/2024 4:14 PM EDT Left message for patient to return call. Geovanna Hinds Ma [facility]07-05-2024 Telephone encounter Note* Telephone Encounter - Guanakito Reno MD - 04/19/2024 3:46 PM EDT Anemia is stable. I still need an ifobt done since he is on blood thinners to rule out gi blood loss. It may well be related to his kidneys. They are stable but worse. Did he get set up with nephrology? Was ordered previously. [facility]06-24-2024 Telephone encounter Note* Telephone Encounter - Corrina Lennon APRN.KOURTNEY - 04/08/2024 3:45 PM EDT Pt aware. Corrina Lennon APRN.FOOD AND BEVERAGE INTERN [facility]06-24-2024 Miscellaneous Notes* Telephone Encounter - Corrina Lennon APRN.CNP - 04/08/2024 3:45 PM EDT Pt aware. Corrina Lennon APRN.FOOD AND BEVERAGE INTERN * Telephone Encounter - Josselyn Barrow LPN [...] two weeks. See nephrology documented in this encounterSumma Health Wad[facility] - [facility] Center06-24-2024 Telephone encounter Note * Telephone Encounter - Alejandro Molina RPh - 04/08/2024 3:36 PM EDT [facility] Ambulatory Pharmacy Anticoagulation Clinic Anticoagulation Episode Summary Anticoagulation Care Providers Provider Role Specialty Phone number Guanakito Reno MD [facility] [phone] Cal Mitchell is a 78 year old [...] Pharmacy Anticoagulation Clinic Pharmacy Anticoagulation Clinic Pager: [phone]. [facility]06-24-2024 Miscellaneous Notes* Telephone Encounter - Alejandro Molina RPh - 04/08/2024 3:36 PM EDT [facility] Ambulatory Pharmacy Anticoagulation Clinic Anticoagulation Episode Summary Anticoagulation Care Providers Provider Role Specialty Phone number Guanakito Reno MD [facility] [phone] Cal Mitchell is a 78 year old [...] of the plan. Alejandro Molina [facility] Clinical Pharmacist, Pharmacy Anticoagulation Clinic Pharmacy Anticoagulation Clinic Pager: [phone]. documented in this encounterSumma Health Wadsworth - [facility]06-24-2024 Instructions* Patient Instructions* Corrina Lennon APRN.CNP - 04/08/2024 3:11 PM EDT Continue the same medication. Get the repeat labs in 2 weeks. Get the echo, carotid ultrasound, kidney ultrasound as planned. Schedule w/ nephrology. Schedule back in 1 month for recheck. documented in this encounterSumma Health Wadsworth - [facility]06-24-2024 History of Present illness Narrative* [...] 8 hours as needed. blood sugar diagnostic (SnapetteTOUCH ULTRA TEST) test strip Test blood sugar(s) [...] as needed for worsening/no improvement. Corrina Lennon APRN.FOOD AND BEVERAGE INTERN The patient indicates understanding of these issues and agrees with the plan. documented in this encounterSumma Health Wad[facility]06-22-2024 Telephone encounter Note * Telephone [...] Diana Jimenez PharmD, MPH Anticoagulation Clinic Pharmacist [phone] [facility]06-22-2024 Miscellaneous Notes* Telephone Encounter - [...] Diana Jimenez PharmD, MPH Anticoagulation Clinic Pharmacist [phone] * Telephone Encounter - Nabila Jimenez RPh - 04/06/2024 3:49 PM EDT Called and LM for patient and sent MyChart referenced in VM (though patient has not logged into [employer] since December). Patient was asked to call/page PAC at next convenience to confirm receipt of message Will follow up on Monday and expect next INR on that date Diana Jimenez PharmD, MPH Anticoagulation Clinic Pharmacist [phone] * Telephone Encounter - Yamilka Heath RN - 04/04/2024 1:14 PM EDT Alana Perez calling in INR result today (04/04.) result has been addressed below. Apurva Heath RN Pharmacy Anticoagulation Clinic * Telephone Encounter - Jimmy Carrizales [facility] - 04/04/2024 12:26 PM EDT [facility] Ambulatory Pharmacy Anticoagulation Clinic Anticoagulation Episode Summary Anticoagulation Care Providers Provider Role Specialty Phone number Guanakito Reno MD [facility] [phone] Cal Mitchell is a 78 year old [...] Pharmacy Anticoagulation Clinic Pharmacy Anticoagulation Clinic Pager: [phone]. documented in this encounterSumma Health [facility]06-[facility]24 Telephone encounter Note * Telephone Encounter - Nabila Jimenez RPh - 04/06/2024 3:49 PM EDT Called and LM for patient and sent Dexmo referenced in VM (though patient has not logged into Dexmo since December). Patient was asked to call/page PAC at next convenience to confirm receipt of message Will follow up on Monday and expect next INR on that date Diana Jimenez, SamirD, MPH Anticoagulation Clinic Pharmacist [phone] [facility]06-21-2024 Telephone encounter Note* Telephone Encounter - Josselyn Barrow LPN - 04/05/2024 4:25 PM EDT Has visit scheduled with Corrina on Monday will route to their pool. If he keeps that appt can you please close for us? Thank you. [facility]06-21-2024 Telephone encounter Note* Telephone Encounter - Carolina Alba MA - 04/05/2024 4:19 PM EDT No answer. Left detailed message stating we were calling in regards to results and needing to discuss a few things. Advised to return call. Carolina Alba MA [facility]06-21-2024 Telephone encounter Note* Telephone Encounter - Jonelle Worley LPN - 04/05/2024 10:41 AM EDT Phoned patient left message to return call and ask to speak to a nurse. [facility]06-21-2024 Telephone encounter Note* Telephone Encounter - Guanakito Reno MD - 04/05/2024 10:21 AM EDT Anemia is stable. May be related to his kidneys. Renal function continues to be slightly worse. Get renal us as ordered. Check ifobt. Recheck labs in two weeks. See nephrology [facility]06-20-2024 Telephone encounter Note* Telephone Encounter - Yamilka Heath RN - 04/04/2024 1:14 PM EDT Alana Perez calling in INR result today (04/04.) result has been addressed below. Apurva Heath RN Pharmacy Anticoagulation Clinic [facility]06-20-2024 Telephone encounter Note* Telephone Encounter - Jimmy Carrizales [facility] - 04/04/2024 12:26 PM EDT [facility] Ambulatory Pharmacy Anticoagulation Clinic Anticoagulation Episode Summary Anticoagulation Care Providers Provider Role Specialty Phone number Guanakito Reno MD [facility] [phone] Cal Mithcell is a 78 year old year old [...] return call tomorrow Jimmy Carrizales [facility] Clinical Pharmacist, Pharmacy Anticoagulation Clinic Pharmacy Anticoagulation Clinic Pager: [phone]. [facility]06-11-2024 Instructions* Patient Instructions* Guanakito Reno MD - 03/26/2024 5:00 PM EDT Stop lisinopril hctz Start lisinopril. Call if any shortness of breath or edema. Weigh daily. Call us if you gain more than 3-4 lbs in a 24 hour period Get carotid ultrasound Recheck labs end of this week or early next. documented in this encounterSumma Health Wad[facility]06-11-2024 History of Present illness Narrative* [...] mg daily. Needs 30 day supply to [employer] while waiting for shipment from [employer]. No myalgias HTN: Continues on Zestoretic 20-12.5 [...] 8 hours as needed. blood sugar diagnostic (SnapetteTOUCH ULTRA TEST) test strip Test blood sugar(s) one times daily. Dx: 250.00. Insulin: No Lancets (ONE TOUCH DELICA) [facility] [place]ancets Test blood sugar(s) one time daily. [...] two weeks or prn. documented in this encounterSumma Health Wad[facility]06-10-2024 History of Present illness Narrative* Pam Reddy MD - 03/25/2024 5:19 PM EDT Images from the original note were not included. Pam Reddy MD Interventional Cardiology [address] [place] [address] [phone] Chief Complaint Patient presents with: Follow Up [...] Strip 3 Lancets (ONE TOUCH DELICA) [facility] lancets Test blood sugar(s) one time daily. [...] to correct any errors. documented in this encounterSumma Health Wad[facility]05-24-2024 History of Present illness Narrative* Melania Galindo, [...] of . Patient Attributed To: YANCIE Payer: [facility] Action Taken: Data submitted to Payer Dexmo message to patient Notation made to upcoming appointment notes requesting provider follow up Contact made with patient: No, Chart review only. Melania Galindo RN documented in this encounterSumma Health Wad[facility]05-23-2024 Telephone encounter Note * Telephone Encounter - Jimmy Carrizales, [facility] - 03/07/2024 11:54 AM EDT [facility] Ambulatory Pharmacy Anticoagulation Clinic Anticoagulation Episode Summary Anticoagulation Care Providers Provider Role Specialty Phone number Guanakito Reno MD [facility] Medicine [phone] Cal Mitchell is a 78 year old [...] Pharmacy Anticoagulation Clinic Pharmacy Anticoagulation Clinic Pager: [phone]. 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 documented in this encounterSumma Health W[facility]05-01-2024 Telephone encounter Note * Telephone Encounter - Ruthie Cuevas RPh - 02/14/2024 9:04 AM EDT [facility] Ambulatory Pharmacy Anticoagulation Clinic Anticoagulation Episode Summary Anticoagulation Care Providers Provider Role Specialty Phone number Guanakito Reno MD [facility] Family Medicine [phone] Cal Mitchell is a 78 year old [...] Pharmacy Anticoagulation Clinic Pharmacy Anticoagulation Clinic Pager: [phone]. 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 documented in this encounterSumma Health W[facility]04-03-2024 Miscellaneous Notes* Telephone Encounter - [...] Thank you. Betzy Colvin. documented in this [facility]04-03-2024 Miscellaneous Notes* Telephone Encounter - Betzy Colvin - 01/17/2024 3:22 PM EDT Patient's daughter calling to request medication that is on patient list pioglitazone (ACTOS) 15 mg tablet [facility]. documented in this encounterSumma Health W[facility]04-01-2024 Miscellaneous Notes* Telephone Encounter - Alejandro Molina RPh - 01/15/2024 10:32 AM EDT [facility] Ambulatory Pharmacy Anticoagulation Clinic Anticoagulation Episode Summary Anticoagulation Care Providers Provider Role Specialty Phone number Guanakito Reno MD [facility] [phone] Cal Mitchell is a 78 year old [...] instructed to call Pharmaceutical Anticoagulation Clinic at [phone] with any questionsor concerns. Alejandro Molina RPh Clinical Pharmacist, Pharmacy Anticoagulation Clinic Pharmacy Anticoagulation Clinic Pager: [phone] documented in this encounterSumma Health Wad[facility]03-08-2024 Instructions* Patient Instructions* Carolina Landeros APRN.CNS - 12/22/2023 3:30 PM EST 1) Telfa dressing change daily 2) Letter for [facility] 3) Follow up in 3m 4) Melatonin 3mg qhs and may repeat once through night if needed documented in this encounterSumma Health Wad[facility] - [facility]03-08-2024 History of Present illness Narrative* Carolina Landeros APRN.LEAD PORTFOLIO MANAGER - 12/22/2023 3:10 PM EST This is [...] Insulin: No Lancets (ONE TOUCH DELICA) [facility] lancets Test blood sugar(s) one time daily. [...] agrees with the plan. documented in this encounterSumma Health Wadsworth - [facility]03-07-2024 Miscellaneous Notes* Telephone Encounter - [...] 7. TETANUS: 04/22/21 Protocols used: Cuts and [id number] documented in this encounterSumma Health Wadsworth - [facility]03-07-2024 Miscellaneous Notes* Telephone Encounter - Jimmy Carrizales, [facility] - 12/21/2023 9:03 AM EST [facility] Ambulatory Pharmacy Anticoagulation Clinic Anticoagulation Episode Summary Anticoagulation Care Providers Provider Role Specialty Phone number Guanakito Reno MD [facility] [phone] Cal Mitchell is a 78 year old [...] scheduled on 01/04/2024 Jimmy Carrizales [facility] Clinical Pharmacist, Pharmacy Anticoagulation Clinic Pharmacy Anticoagulation Clinic Pager: [phone]. documented in this encounterSumma Health Wadsworth [facility]02-19-2024 Miscellaneous Notes* Telephone Encounter - Daniel JansenPiano Professor)Ashley - 12/04/2023 11:53 AM EST PATIENT CALL Received call from Summer with [facility] INR to report home meter result for patient. [facility] hasalready addressed this result (see below); nothing further needed at this time. Ashley Sanchez CPhT (Administrative Underwriter) Pharmacy Anticoagulation Clinic * Telephone Encounter - Alejandro Molina RP - 12/04/2023 9:44 AM EST [facility] Ambulatory Pharmacy Anticoagulation Clinic Anticoagulation Episode Summary Anticoagulation Care Providers Provider Role Specialty Phone number Guanakito Reno MD [facility] Family Medicine [phone] Cal Mitchell is a 78 year old [...] instructed to call Pharmaceutical Anticoagulation Clinic at [phone] with any questionsor concerns. 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 documented in this encounterSumma Health Wadsworth - [facility]11-21-2023 History of Present illness Narrative* Mouna Vallecillo RN - 09/05/2023 1:48 PM ESTSummary: Medication Adherence review per request of payer ACM LUIS RN Action/FYI: Medication Adherence review completed per request of payer. NO PROVIDER ACTION REQUIRED Patient identified by name and date of . Patient Attributed To: [facility] Payer: [facility] Reason for review or outreach: Medication Adherence Medication Adherence Review Details: Diabetes Summary / Findings: GLIMEPIRIDE -- Refill Due - 07/18/2023 ATORVASTATIN -- Refill Due - 08/21/2023 Pharmacy - [facility] - Action Taken: Data submitted to [employer] message to patient Contact made with patient: No, Chart review only. documented in this encounterSumma Health Wadsworth - [facility] Center11-07-2023 Miscellaneous Notes* Telephone Encounter - Twin Cole RPh - 08/22/2023 9:46 AM EST [facility] Ambulatory Pharmacy Anticoagulation Clinic Anticoagulation Episode Summary Anticoagulation Care Providers Provider Role Specialty Phone number Guanakito Reno MD [facility] Medicine [phone] Cal Mitchell is a 78 year old [...] scheduled on 09/05/2023 Twin Cole [facility] Clinical Pharmacist, Pharmacy Anticoagulation Clinic Pharmacy Anticoagulation Clinic Pager: [phone]. documented in this encounterSumma Health Wadsworth - [facility] Center11-01-2023 Miscellaneous Notes* Telephone Encounter - [...] states "one." Please phone Elly with reply: [phone] Copied and pasted provider's message from previous encounter: Sugars are really good. Stop his glimepiride. Call sugars in two weeks. His kidney function is worse, recheck labs in one . Make sure drinking adequate fluids. documented in this encounterSumma Health Wad[facility] - [facility]10-31-2023 Miscellaneous Notes* Telephone Encounter - [...] sure drinking adequate fluids. documented in this encounterSumma Health Wadsworth - [facility] Center10-30-2023 History of Present illness Narrative* [...] 8 hours as needed. blood sugar diagnostic ([employer] ULTRA TEST) test strip Test blood sugar(s) one times daily. Dx: 250.00. Insulin: No Lancets (ONE TOUCH DELICA) [facility] lancets Test blood sugar(s) one time daily. [...] YR, HIGH DOSE, QUADRIVALENT (FLUZONE HIGH-DOSE) - [employer] COVID-19 VACCINE (2022- SEASON) AGE 12+ YR [...] N18.31 Guanakito Reno MD documented in this encounterSumma Health Wadsworth - [facility] Center10-11-2023 Miscellaneous Notes* Telephone Encounter - Ruthie Cuevas [facility] - 07/26/2023 4:50 PM EDT [facility] Ambulatory Pharmacy Anticoagulation Clinic Anticoagulation Episode Summary Anticoagulation Care Providers Provider Role Specialty Phone number Guanakito Reno MD [facility] Medicine [phone] Cal Mitchell is a 78 year old [...] ALLERGIES No Known Allergies 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 documented in this encounterSumma Health Wadsworth - [facility]09-19-2023 Miscellaneous Notes* Telephone Encounter - Pily Cuevas - 07/04/2023 3:50 PM EDT Patient needs to have [facility] supply [facility] as well please send at least [...] notify patient. Pily Horne documented in this encounterSumma Health Wadsworth - [facility]09-12-2023 History of Present illness Narrative* Lizette Cardenas RN - 2023 3:08 PM EDT ACM LUIS RN Action/FYI: Medication Adherence review completed per request of payer. NO PROVIDER ACTION REQUIRED Please see requests in the Summary/Findings section below Patient identified by name and date of . Patient Attributed To: QAE Payer: [facility] Reason for review or outreach: Medication Adherence Medication Adherence Review Details: Hypertension Summary / Findings: Lisinopril was due for refill on: 05/16/[facility] Action Taken: Data submitted to In[employer] message to patient Other Contact made with patient: No, Chart review only. Signature: Lizette Cardenas RN documented in this encounterSumma Health Wad[facility]08-07-2023 Miscellaneous Notes* Telephone Encounter - Alejandro Molina RPh - 05/22/2023 10:12 AM EDT [facility] Ambulatory Pharmacy Anticoagulation Clinic Anticoagulation Episode Summary Anticoagulation Care Providers Provider Role Specialty Phone number Guanakito Reno MD [facility] Medicine [phone] Cal Mitchell is a 77 year old [...] instructed to call Pharmaceutical Anticoagulation Clinic at [phone] with any questionsor concerns. Alejandro Molina RPh Clinical Pharmacist, Pharmacy Anticoagulation Clinic Pharmacy Anticoagulation Clinic Pager: [phone] documented in this encounterSumma Health Wadsworth - [facility]07-10-2023 Miscellaneous Notes* Telephone Encounter - Alejandro Molina RPh - 04/24/2023 10:04 AM EDT [facility] Ambulatory Pharmacy Anticoagulation Clinic Anticoagulation Episode Summary Anticoagulation Care Providers Provider Role Specialty Phone number Guanakito Reno MD [facility] [phone] Cal Mitchell is a 77 year old [...] Pharmacy Anticoagulation Clinic Pharmacy Anticoagulation Clinic Pager: [phone]. documented in this encounterSumma Health Wadsworth - [facility]07-05-2023 Miscellaneous Notes* Telephone Encounter - [...] patient. Leslie Perez Pss documented in this encounterSumma Health Wadsworth - [facility]06-13-2023 Miscellaneous Notes* Telephone Encounter - Twin Cole RPh - 03/28/2023 3:22 PM EDT [facility] Ambulatory Pharmacy Anticoagulation Clinic Anticoagulation Episode Summary Anticoagulation Care Providers Provider Role Specialty Phone number Guanakito Reno MD [facility] Family Medicine [phone] Cal Mitchell is a 77 year old [...] Pharmacy Anticoagulation Clinic Pharmacy Anticoagulation Clinic Pager: [phone]. documented in this encounterSumma Health Wadsworth - [facility]05-01-2023 History of Present illness Narrative* Dory Mayers RN - 02/13/2023 4:13 PM EDT EVENT MONITOR DISPOSABLE PATCH INSTRUCTIONS Patient Name: Cal Mitchell Clinic Number: [id number] Skin prepped and cleansed with alcohol Patch secured to prepped area Monitor Activated Serial #: [id number] Patient Instructed: Prescribed order timeframe Bathing guidelines Usage of event button and diary documentation Return of monitor at the end of prescribed order Call with problems [phone] or [phone] ext. [phone] Patient expresses a good understanding of instructions Dory Mayers RN * Pam Reddy MD - 02/13/2023 4:01 PM EDT Images from the original note were not included. Pam Reddy MD Interventional Cardiology [facility] [address] [place], [place] [address] [phone] Chief Complaint Patient presents with: Established Patient [...] airway obstruction, not elsewhere classified 10/20 Diabetes ([facility]) Diverticulosis of colon (without mention of [...] to correct any errors. documented in this encounterSumma Health Wadsworth - [facility]04-24-2023 History of Present illness Narrative* [...] YR Guanakito Reno MD documented in this encounterSumma Health Wadsworth - [facility]04-03-2023 Miscellaneous Notes* Telephone Encounter - Corrina Lennon APRN.CNP - 01/16/2023 1:31 PM EDT Script sent. Corrina Lennon APRN.[employer] INTERN * Telephone Encounter - Pily Syed MA [...] notify patient. Winifred Zazueta documented in this encounterSumma Health Wadsworth - [facility]03-30-2023 Miscellaneous Notes* Telephone Encounter - Jimmy Carrizales RP - 01/12/2023 4:25 PM EDT [facility] Ambulatory Pharmacy Anticoagulation Clinic Anticoagulation Episode Summary Anticoagulation Care Providers Provider Role Specialty Phone number Guanakito Reno MD [facility] Family Medicine [phone] Cal Mitchell is a 77 year old [...] Pharmacy Anticoagulation Clinic Pharmacy Anticoagulation Clinic Pager: [phone]. 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 * Telephone Encounter - Alejandro Molina RPh - 01/09/2023 4:34 PM EDT Patient was due to test INR today. Will continue to monitor for results. documented in this encounterSumma Health Wadsworth - [facility]03-06-2023 Miscellaneous Notes* Telephone Encounter - Alejandro Molina RPh - 12/19/2022 10:37 AM EST [facility] Ambulatory Pharmacy Anticoagulation Clinic Anticoagulation Episode Summary Anticoagulation Care Providers Provider Role Specialty Phone number Guanakito Reno MD [facility] [phone] Cal Mitchell is a 77 year old [...] instructed to call Pharmaceutical Anticoagulation Clinic at [phone] with any questionsor concerns. Alejandro Molina RPh Clinical Pharmacist, Pharmacy Anticoagulation Clinic Pharmacy Anticoagulation Clinic Pager: [phone] documented in this encounterSumma Health Wad[facility] - [facility]02-13-2023 Miscellaneous Notes* Telephone Encounter - Alejandro Molina RPh - 11/28/2022 10:18 AM EST [facility] Ambulatory Pharmacy Anticoagulation Clinic Anticoagulation Episode Summary Anticoagulation Care Providers Provider Role Specialty Phone number Guanakito Reno MD [facility] [phone] Cal Mitchell is a 77 year old [...] instructed to call Pharmaceutical Anticoagulation Clinic at [phone] with any questionsor concerns. Alejandro Molina RPh Clinical Pharmacist, Pharmacy Anticoagulation Clinic Pharmacy Anticoagulation Clinic Pager: [phone] documented in this encounterSumma Health Wadsworth - [facility]02-03-2023 Miscellaneous Notes* Telephone Encounter - Kamran Ayon RPh - 11/18/2022 12:49 PM EST Patient due to test INR today. Will continue to monitor for results. Kamran Ayon RPh documented in this encounterSumma Health W[facility] - [facility]01-20-2023 Miscellaneous Notes* Telephone Encounter - Kamran Ayon [facility] - 11/04/2022 8:02 AM EST [facility] Ambulatory Pharmacy Anticoagulation Clinic Anticoagulation Episode Summary Anticoagulation Care Providers Provider Role Specialty Phone number Guanakito Reno MD [facility] Internal Medicine [phone] Cal Mitchell is a 77 year old [...] Pharmacy Anticoagulation Clinic Pharmacy Anticoagulation Clinic Pager: [phone]. documented in this encounterSumma Health Wadsworth - [facility]01-17-2023 Miscellaneous Notes* Telephone Encounter - Twin Cole RPh - 11/01/2022 10:30 AM EST Patient due to test INR today. Will continue to monitor for results. 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 * Telephone Encounter - Ruthie Cuevas RPh - 10/19/2022 4:33 PM EST Patient was due to test INR today will continue to monitor for results. Ruthie Cuevas PharmD documented in this encounterSumma Health Wadsworth - [facility] Center12-20-2022 History of Present illness Narrative* Alondra Prescott DO - 10/04/2022 10:58 AM EST This office note has been dictated. Alondra Prescott DO * Alondra Prescott DO - 10/04/2022 12:00 AM EST NAME: CAL MITCHELL [facility] NO: [id number] DATE OF SERVICE: 10/04/2022 Subjective: Mr. Mitchell [...] concerns. Alondra Prescott D.O. KB/[id number] Audio #: [id number] Date Dictated: 10/04/2022 10:13:59 Date Typed: 10/05/2022 14:12:47 Date Revised: documented in this encounterSumma Health Wadsworth - [facility] Center12-15-2022 Miscellaneous Notes* Telephone Encounter - Jimmy Carrizales [facility] - 09/29/2022 4:38 PM EST [facility] Ambulatory Pharm[facility] Anticoagulation Clinic Anticoagulation Episode Summary Anticoagulation Care Providers Provider Role Specialty Phone number Guanakito Reno MD [facility] Family Medicine [phone] Cal Mitchell is a 77 year old [...] ALLERGIES No Known Allergies 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 Jimmy Huong Plantner, [facility] Clinical Pharmacist, Pharmacy Anticoagulation Clinic Pharmacy Anticoagulation Clinic Pager: [phone]. * Telephone Encounter - Ruben Cunningham ([place]) - 09/29/2022 2:23 PM EST PATIENT CALL Patient's daughter Elly called call center regarding results. Patient's daughter stated the INR result was 1.9 last night at 9:30 pm and gave him an extra 1/2 tablet of warfarin. January will reach out to [facility] to report result and to have them troubleshoot application for new phone. PT INR (no units) Date Value 01/24/2022 2.1 biotel 10/26/2021 2.1 (Biotel) 03/04/2021 2.4 INR Home CoaguChek (no units) Date Value 09/14/2022 1.8 07/29/2022 2.2 07/04/2022 2.7 Patient stated she lets blocked calls go to [employer]. She asked if she needed to be near the meterto report the results over the phone to [facility]--advised her I am not sure. January can be reached at [phone] Ruben Cunningham ([place]) * Telephone Encounter - Ruthie Cuevas RPh [...] PharmD Pharmacy Anticoagulation Clinic documented in this encounterSumma Health Wadsworth - [facility]12-09-2022 Miscellaneous Notes* Telephone Encounter - Yasemin Joyce [...] and advise. Yasemin Cook documented in this encounterSumma Health Wadsworth - [facility]ittman [facility] Center12-01-2022 Miscellaneous Notes* Telephone Encounter - [...] not patient's name. Messaged Bonita at [facility]. Apurva Heath RN Pharmacy Anticoagulation Clinic * Telephone Encounter - Jimmy Carrizales RPh - 09/15/2022 10:24 AM EST [facility] Amb[facility]agulation Clinic Anticoagulation Episode Summary Anticoagulation Care Providers Provider Role Specialty Phone number Guanakito Reno MD [facility] [phone] Cal Mitchell is a 77 year old [...] every Tue; 5 mg all other days; Yzpcqudm75/7/2022 Called and spoke to patient/caregiver - per demographics we only have daughter's phone number but no identifier Advised patient to increase dose for 1 day only then resume weekly regimen Next home INR check scheduled on 09/21/2022 Jimmy Carrizales [facility] Clinical Pharmacist, Pharmacy Anticoagulation Clinic Pharmacy Anticoagulation Clinic Pager: [phone]. * Telephone Encounter - Alejandro Molina [facility] - 09/05/2022 5:31 PM EST Added to discharge list. * Telephone Encounter - Ruthie Cuevas [facility] - 08/29/2022 4:49 PM EST Cal Mitchell was called and reminded to test INR today or as soon as possible. LM on his home/cell number. Ruthie Cuevas PharmD Pharmacy Anticoagulation Clinic * Telephone Encounter - Alejandro Molina [facility] - 08/22/2022 4:42 PM EST Patient was due to test INR today. Will continue to monitor for results. documented in this encounterSumma Health Wadsworth - Rittman [facility] Center11-23-2022 History of Present illness Narrative* Lizette Cardenas RN - 09/07/2022 6:24 AM EST ACM LUIS RN Action/FYI: Medication Adherence review completed per request of [facility]. NO PROVIDER ACTION REQUIRED Lisinopril/Hctz 20-12.5mg Last filled: 05/21/22 Days Supply: 90 Refill Due: 08/19/22 Pharmacy: [facility] Atorvastatin 80mg Last filled: 03/20/22 Days Supply: 90 Refill Due: 06/28/22 Pharmacy: [facility] MY CHART MESSAGE SENT Patient identified by name and date of . Patient Attributed To: QAE Payer: [facility] Reason for review or outreach: Medication Adherence Medication Adherence Review Details: Cholesterol and Hypertension Summary / Findings: As per above Action Taken: Data submitted to InMyShow message to patient Contact made with patient: No, Chart review only. Signature: Lizette Cardenas RN documented in this encounterSumma Health Wadsworth - [facility] Center10-31-2022 History of Present illness Narrative* Pam Reddy MD - 08/15/2022 3:48 PM EDT Images from the original note were not included. Pam Reddy MD Interventional Cardiology [facility] [address], [place] [address] [phone] Chief Complaint Patient presents with: Consult HISTORY [...] Strip 3 Lancets (ONE TOUCH [place] [facility] [place] Test blood sugar(s) one time daily. [...] to correct any errors. documented in this encounterSumma Health Wadsworth - [facility] Center10-17-2022 Miscellaneous Notes* Telephone Encounter - Alejandro Molina RPh - 08/01/2022 9:52 AM EDT [facility] Ambulatory [facility] Anticoagulation Clinic Anticoagulation Episode Summary Anticoagulation Care Providers Provider Role Specialty Phone number Guanakito Reno MD [facility] [phone] Cal Mitchell is a 77 year old [...] instructed to call [facility] at [phone] with any questionsor concerns. Alejandro Molina RPh Clinical Pharmacist, Pharmacy Anticoagulation Clinic Pharmacy Anticoagulation Clinic Pager: [phone] documented in this encounterSumma Health Wadsworth [facility] Center10-07-2022 Miscellaneous Notes* Telephone Encounter - [...] advise. Darrell Meyer LPN documented in this encounterSumma Health Wadsworth - [facility] Center09-20-2022 Miscellaneous Notes* Telephone Encounter - Twin Cole [facility] - 07/05/2022 9:30 AM EDT [facility] Ambulatory Pharmacy Anticoagulation Clinic Anticoagulation Episode Summary Anticoagulation Care Providers Provider Role Specialty Phone number Guanakito Reno MD [facility] Family Medicine [phone] Cal Mitchell is a 77 year old [...] Pharmacy Anticoagulation Clinic Pharmacy Anticoagulation Clinic Pager: [phone]. * Telephone Encounter - Alejandro Molina RPh - 07/04/2022 3:42 PM EDT Cal Mitchell was called and reminded to test INR today or as soon as possible. * Telephone Encounter - Alejandro Molina RPh - 2022 4:11 PM EDT Patient was due to test INR today. Will continue to monitor for results. documented in this encounterSumma Health Wadsworth - [facility] Center08-30-2022 Miscellaneous Notes* Telephone Encounter - Twin Cole RPh - 06/14/2022 9:14 AM EDT [facility] Anticoagulation Clinic Anticoagulation Episode Summary Anticoagulation Care Providers Provider Role Specialty Phone number Guanakito Reno MD [facility] [phone] Cal Mitchell is a 76 year old [...] Pharmacy Anticoagulation Clinic Pharmacy Anticoagulation Clinic Pager: [phone]. * Telephone Encounter - Val Oliver RPh - 06/13/2022 9:09 AM EDT [email or web address] message sent as a reminder to test INR RAISSA. * Telephone Encounter - Alejandro Molina RPh - 06/06/2022 4:50 PM EDT Patient was due to test INR today. Will continue to monitor for results. documented in this encounterSumma Health Wadsworth - [facility]itt[facility] Center08-30-2022 History of Present illness Narrative* Nirmala Lim MA - 06/14/2022 9:03 AM EDT POPULATION HEALTH NAVIGATION OUTREACH Action/FYI Called and left a message to call [phone], to discuss health maintenance items that are due. Sent My Chart message. PCP appt: 01/19- needs follow up per last ov note My chart activation: active Advance directive: needs info HM due: Follow up ARIAN AD Pt identified by name and : NO Outreach Outcome/Action Unable to reach patient: Left message Harat message sent Did you use a PCP flex slot to schedule this appointment? N/A Reason for Outreach Care Gap or Scheduling/Wellness visits Payer: Payor: [facility] MEDICARE / Plan: UHC AARP [...] 14, 2022 9:05 AM documented in this encounterSumma Health Wadsworth - [facility] Center08-04-2022 Miscellaneous Notes* Telephone Encounter - [...] 05/19/2022 11:56 AM EDT Pharmacy verified in [facility] Patient has been identified by [...] advise. Yasemin Garcia Pss documented in this encounterSumma Health Wadsworth - [facility] Center08-01-2022 Miscellaneous Notes* Telephone Encounter - Alejandro Molina RPh - 05/16/2022 11:54 AM EDT [facility] Ambulatory Pharm[facility] Anticoagulation Clinic Anticoagulation Episode Summary Anticoagulation Care Providers Provider Role Specialty Phone number Guanakito Reno MD [facility] [phone] Cal Mitchell is a 76 year old [...] instructed to call Pharm[facility]tico[facility] at [phone] with any questionsor concerns. Alejandro Molina RPh Clinical Pharmacist, Pharmacy Anticoagulation Clinic Pharmacy Anticoagulation Clinic Pager: [phone] documented in this encounterSumma Health Wadsworth - [facility] Center07-11-2022 Miscellaneous Notes* Telephone Encounter - Val Oliver RPh - 04/25/2022 7:56 AM EDT Last INR due around 04/18. MyChart message sent as a reminder to test INR RAISSA. PT INR (no units) Date Value 01/24/2022 2.1 biotel 10/26/2021 2.1 (Biotel) 03/04/2021 2.4 INR Home CoaguChek (no units) Date Value 04/02/2022 2.2 03/09/2022 2.6 02/10/2022 3.4 documented in this encounterSumma Health Wadsworth - [facility] Center06-15-2022 Miscellaneous Notes* Telephone Encounter - [...] either. Ruthie Cuevas PharmD documented in this encounterSumma Health Wadsworth - [facility]itt[facility] Center06-01-2022 Miscellaneous Notes* Telephone Encounter - Nicki Nieto - 03/16/2022 10:46 AM EDT Patient is scheduled [place] appt [place]22 [place]. Did call the patient to see if any external imagine has been complete, left VM to call the office Or record indicates no testing has been completed since 2019 Would you like an updated carotid US Order pending please sign if correct Thanks documented in this encounterSumma Health Wadsworth - [facility] Center05-25-2022 Miscellaneous Notes* Telephone Encounter - Ruthie Cuevas RPh - 03/09/2022 4:08 PM EDT [facility] Pharmacy Anticoagulation Clinic Anticoagulation Episode Summary Anticoagulation Care Providers Provider Role Specialty Phone number Guanakito Reno MD [facility] [phone] Cal Mitchell is a 76 year old [...] therapeutic He did not read our last Max-Viz message and hasn't logged on in a month so tried to call. Plan: Called and spoke to patient/caregiver Advised patient to continue current weekly dose Next home INR check scheduled on 03/23/2022 Ruthie Cuevas bobbi Clinical Pharmacist, Pharmacy Anticoagulation Clinic Pharmacy Anticoagulation Clinic Pager: [phone] . documented in this encounterSumma Health Wadsworth - [facility] Center05-05-2022 Miscellaneous Notes* Telephone Encounter - Jazmyn Garcia [facility] - 02/17/2022 1:17 PM EDT Patient due to test INR today. Will continue to monitor for results. Jazmyn Garcia [facility] documented in this encounterSumma Health Wadsworth - [facility] Center04-29-2022 Miscellaneous Notes* Telephone Encounter - Denisse Hutchinson [facility] - 02/11/2022 8:21 AM EDT [facility] Ambulatory Pharmacy Anticoagulation Clinic Anticoagulation Episode Summary Anticoagulation Care Providers Provider Role Specialty Phone number Guanakito Reno MD [facility] [phone] Cal Mitchell is a 76 year old [...] did not speak to patient Plan: Sent Max-Viz message Advised patient to decrease dose for 2 days only then resume weekly regimen Next home INR check scheduled on 02/17/2022 Denisse Hutchinson RPh Clinical Pharmacist, Pharmacy Anticoagulation Clinic Pharmacy Anticoagulation Clinic Pager: [phone] . * Telephone Encounter - Twin Cole RPh - 02/08/2022 4:00 PM EDT Patient due to test INR today. Will continue to monitor for results. Twin Cole RPh documented in this encounterSumma Health Wadsworth - [facility] Center04-12-2022 Miscellaneous Notes* Telephone Encounter - Twin Cole RPh - 01/25/2022 9:15 AM EDT [facility] Ambulatory Pharmacy Anticoagulation Clinic Anticoagulation Episode Summary Anticoagulation Care Providers Provider Role Specialty Phone number Guanakito Reno MD [facility] [phone] Cal Mitchell is a 76 year old [...] Pharmacy Anticoagulation Clinic Pharmacy Anticoagulation Clinic Pager: [phone] . documented in this encounterSumma Health Wadsworth - [facility] Center04-06-2022 History of Present illness Narrative* [...] No. Dementia: Had previously been following with [employer] Last visit 08/2020. Doesn't have anything further scheduled. Doesn't really want to go to [place], but appears last visit was distance. Does not drive. Lives w/ daughter. Stays up late at night and sleep during the day. A. Fib: Chronic anticoagulation. Denies any hematochezia/melena. Daughter does home checks. Follows w/ pharmacy. occ fall with no significant injury. Had been following with [facility], but unsure when he was last seen there. Diabetes. Does not check home blood sugars. Reports compliance w/ medication. Carotid artery stenosis. Follows w/ vascular. Last visit 10/20/20. Recommended follow-up with cardiology and then Dr. Devries in [place]. He did have echo done. Unsure if he followed up with [facility]. Per note, they wanted to establish [...] Abs Lymph 1.00 - 4.00 k/uL 1.65 [place]% % 7.4 Abs [place] <0.87 k/uL 0.53 [place]% % 8.2 Abs [...] Negative Negative Ketones, Urine Negative Negative Specific [place], Ur 1.005 - 1.030 1.016 Hemoglobin/Blood,Ur Negative [...] Insulin: No Lancets (ONE TOUCH DELICA) [facility] [place] Test blood sugar(s) one time daily. [...] three months and prn. documented in this encounterSumma Health Wadsworth - [facility] Center03-31-2022 Miscellaneous Notes* Telephone Encounter - Jazmyn Garcia RPh - 01/13/2022 2:33 PM EDT Patient due to test INR today. Will continue to monitor for results. Jazmyn Garcia RPh documented in this encounterSumma Health Wadsworth - [facility] Center11-11-2020 History of Past illness Narrative* [...] of this encounter (statuses as of 08/15/2023) [facility]11[facility] History of Past illness Narrative* [...] of this encounter (statuses as of 08/15/2023) [facility]11[facility] History of Past illness Narrative* [...] of this encounter (statuses as of 08/16/2023) [facility]11[facility] History of Past illness Narrative* [...] of this encounter (statuses as of 08/23/2023) [facility]11[facility] History of Past illness Narrative* [...] of this encounter (statuses as of 09/06/2023) [facility] History of Past illness Narrative* [...] of this encounter (statuses as of 09/20/2023) [facility]11[facility] History of Past illness Narrative* [...] of this encounter (statuses as of 12/04/2023) [facility] History of Past illness Narrative* [...] of this encounter (statuses as of 12/21/2023) [facility] History of Past illness Narrative* [...] of this encounter (statuses as of 12/21/2023) [facility] History of Past illness Narrative* [...] of this encounter (statuses as of 12/22/2023) [facility] of Past illness Narrative* [...] of this encounter (statuses as of 01/15/2024) [facility] of Past illness Narrative* [...] of this encounter (statuses as of 01/18/2024) [facility] of Past illness Narrative* [...] of this encounter (statuses as of 01/19/2022) [facility] of Past illness Narrative* [...] of this encounter (statuses as of 01/25/2022) [facility] of [facility] Narrative* [...] of this encounter (statuses as of 02/11/2022) [facility] Narrative* [...] of this encounter (statuses as of 03/09/2022) [facility] illness Narrative* [...] of this encounter (statuses as of 03/17/2022) [facility] Narrative* [...] of this encounter (statuses as of 03/18/2022) [facility] Narrative* [...] of this encounter (statuses as of 04/04/2022) [facility] Narrative* [...] of this encounter (statuses as of 04/25/2022) [facility] Narrative* [...] of this encounter (statuses as of 05/13/2022) [facility] Narrative* [...] of this encounter (statuses as of 05/16/2022) [facility] Narrative* [...] of this encounter (statuses as of 05/19/2022) [facility] Narrative* [...] of this encounter (statuses as of 06/14/2022) [facility] Narrative* [...] of this encounter (statuses as of 07/05/2022) [facility] Narrative* [...] of this encounter (statuses as of 07/22/2022) [facility] Narrative* [...] of this encounter (statuses as of 08/01/2022) [facility] Narrative* [...] of this encounter (statuses as of 08/15/2022) [facility] Narrative* [...] of this encounter (statuses as of 09/07/2022) [facility] Narrative* [...] of this encounter (statuses as of 09/15/2022) [facility] Narrative* [...] of this encounter (statuses as of 09/23/2022) [facility] Narrative* [...] of this encounter (statuses as of 09/29/2022) [facility] Narrative* [...] of this encounter (statuses as of 10/16/2022) [facility] Narrative* [...] of this encounter (statuses as of 10/25/2022) [facility] Narrative* [...] of this encounter (statuses as of 11/04/2022) [facility] Narrative* [...] of this encounter (statuses as of 11/08/2022) [facility] Narrative* [...] of this encounter (statuses as of 11/18/2022) [facility] Narrative* [...] of this encounter (statuses as of 11/28/2022) [facility] Narrative* [...] of this encounter (statuses as of 12/19/2022) [facility] Narrative* [...] of this encounter (statuses as of 01/12/2023) [facility] Narrative* [...] of this encounter (statuses as of 01/16/2023) [facility] Narrative* [...] of this encounter (statuses as of 02/07/2023) [facility] Narrative* [...] of this encounter (statuses as of 02/14/2023) [facility] Narrative* [...] of this encounter (statuses as of 03/29/2023) [facility] Narrative* [...] of this encounter (statuses as of 04/20/2023) [facility] Narrative* [...] of this encounter (statuses as of 04/24/2023) [facility] Narrative* [...] of this encounter (statuses as of 05/22/2023) [facility] Narrative* [...] of this encounter (statuses as of 06/28/2023) [facility] Narrative* [...] of this encounter (statuses as of 07/05/2023) [facility] Narrative* [...] of this encounter (statuses as of 07/27/2023) [facility] CenterEval[facility]outh [facility]* Diagnosis [...] 3b CKD (HCC) documented in this encounter [facility] CenterEvaluation note* Diagnosis penitentiary (current) use of anticoagulants- Primary Long-term (current) use of anticoagulants Paroxysmal atrial fibrillation (HCC) Atrial fibrillation [facility] Diagnosis penitentiary (current) use of anticoagulants- Primary Long-term (current) use of anticoagulants Paroxysmal atrial fibrillation (HCC) Atrial fibrillation [facility] Diagnosis penitentiary (current) use of anticoagulants- Primary Long-term (current) use of anticoagulants Paroxysmal atrial fibrillation (HCC) Atrial fibrillation [facility] Diagnosis penitentiary (current) use of anticoagulants- Primary Long-term (current) use of anticoagulants Paroxysmal atrial fibrillation (HCC) Atrial fibrillation [facility] Diagnosis Bilateral carotid artery stenosis- Primary [...] (HCC) At[facility] Diagnosis Essential hypertension with goal blood pressure less than 140/90 [facility] Diagnosis 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- Primary Long-term (current) [...] for COVID-19 vaccine [facility]* Diagnosis Syncope, unspecified syncope type- Primary Aortic valve disorder Aortic valve disorders [facility] Diagnosis Paroxysmal atrial fibrillation (HCC) Atrial fibrillation Essential hypertension with goal blood pressure less than 140/90 Benign prostatic hyperplasia without lower urinary tract symptoms Mixed dementia (HCC) Lung nodule Solitary pulmonary nodule Type 2 diabetes mellitus with stage 3 chronic kidney disease, without long-term current use of insulin (HCC) [facility] Diagnosis Essential hypertension with goal blood pressure less than 140/90 [facility]* Diagnosis penitentiary (current) use of anticoagulants- Primary Long-term (current) use of anticoagulants Paroxysmal atrial fibrillation (HCC) Atrial fibrillation [facility]* Diagnosis [...] kidney disease (HCC) [facility]* Diagnosis Renal insufficiency- Primary Unspecified disorder of kidney and ureter [facility]* Diagnosis 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- Primary Long-term (current) use of anticoagulants Paroxysmal atrial fibrillation (HCC) Atrial fibrillation [facility]* Diagnosis penitentiary (current) use of anticoagulants- Primary Long-term (current) use of anticoagulants Paroxysmal atrial fibrillation (HCC) Atrial fibrillation [facility]* Diagnosis Abrasion of arm, left, initial encounter- Primary Chronic insomnia Insomnia, unspecified [facility]* Diagnosis Essential hypertension with goal blood pressure less than 140/90 Paroxysmal atrial fibrillation (HCC) Atrial fibrillation [facility] Diagnosis Lung nodule Solitary pulmonary nodule documented [facility]* Diagnosis 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- Primary Long-term (current) use of anticoagulants Paroxysmal atrial fibrillation (HCC) Atrial fibrillation documented [facility] this [facility]* Diagnosis Syncope, unspecified syncope type- Primary Aortic valve disorder Aortic valve disorders Paroxysmal atrial fibrillation (HCC) Atrial fibrillation Ectatic thoracic aorta (HCC) 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, without long-term current use of insulin ([facility]) documented [facility] this [facility]* Diagnosis [...] or 3b CKD (HCC) Mixed dementia (HCC) 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 Long-term (current) use of anticoagulants Obesity, Class II, BMI 35-39.9 Obesity, unspecified Renal insufficiency Unspecified disorder of kidney and ureter Anemia, unspecified type documented [facility] this [facility]* Diagnosis 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- Primary Long-term (current) use of anticoagulants Paroxysmal atrial fibrillation (HCC) Atrial fibrillation documented [facility]* Diagnosis CKD (chronic kidney disease) stage 4, 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/min ([facility])- Primary Chronic kidney disease, Stage IV (severe) Anemia, unspecified type documented in this [facility]* Diagnosis [...] Stage IV (severe) [facility]* Diagnosis penitentiary (current) use of anticoagulants- Primary Long-term (current) use of anticoagulants Paroxysmal atrial fibrillation (HCC) Atrial fibrillation documented in this encounter [facility]* Diagnosis Renal insufficiency Unspecified disorder of kidney and ureter documented in this encounter [facility] note* Diagnosis Essential hypertension- Primary Unspecified essential hypertension Hypertensive kidney disease with stage 3 chronic kidney disease, unspecified whether stage 3a or 3b CKD (HCC) Anemia, unspecified type documented in this encounter [facility] note* Diagnosis 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- Primary Long-term (current) use of anticoagulants Paroxysmal atrial fibrillation (HCC) Atrial fibrillation documented in this encounter [facility] note* Diagnosis Blood pressure check- Primary Screening for hypertension Leg swelling Swelling of limb documented in this encounter [facility] note* Diagnosis Aortic valve stenosis, etiology of cardiac valve disease unspecified- Primary Hypertensive kidney disease with stage 3b chronic kidney disease (HCC) Paroxysmal atrial fibrillation (HCC) Atrial fibrillation Benign prostatic hyperplasia without lower urinary tract symptoms Anemia, unspecified type documented in this encounter [facility] note* Diagnosis 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- Primary Long-term (current) use of anticoagulants Paroxysmal atrial fibrillation (HCC) Atrial fibrillation [facility]* Diagnosis Screen for colon cancer- Primary Special screening for malignant neoplasms, colon documented in this encounter [facility] note* Diagnosis 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- Primary Long-term (current) use of anticoagulants Paroxysmal atrial fibrillation (HCC) Atrial fibrillation documented in this encounter [facility] note* Diagnosis Severe aortic stenosis [I35.0]- Primary Aortic valve disorders Valvular heart disease Endocarditis, valve unspecified, unspecified cause documented in this encounter [facility] note* Diagnosis Nonrheumatic aortic valve stenosis- Primary [...] unspecified, unspecified cause [facility] Diagnosis [...] cause documented in this encounter [facility] note* Diagnosis Essential hypertension- Primary Unspecified essential hypertension Valvular heart disease Endocarditis, valve unspecified, unspecified cause [facility]* Diagnosis Paroxysmal atrial fibrillation (HCC)- Primary Atrial fibrillation Aortic valve stenosis, etiology of cardiac valve disease unspecified Valvular heart disease Endocarditis, valve unspecified, unspecified cause [facility]* Diagnosis Nonrheumatic aortic valve stenosis- Primary Aortic valve disorders Paroxysmal atrial fibrillation (HCC) Atrial fibrillation Valvular heart disease Endocarditis, valve unspecified, unspecified cause [facility]* Diagnosis Nonrheumatic aortic valve stenosis Aortic valve disorders Encounter for preprocedural cardiovascular examination Pre-operative cardiovascular examination [facility]* Diagnosis penitentiary (current) use of anticoagulants- Primary Long-term (current) use of anticoagulants Paroxysmal atrial fibrillation (HCC) Atrial fibrillation [facility]* Diagnosis Bilateral carotid artery stenosis- Primary Occlusion and stenosis of carotid artery without mention of cerebral infarction History of carotid endarterectomy Other postprocedural status [facility]* Diagnosis 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- Primary Long-term (current) use of anticoagulants Paroxysmal atrial fibrillation (HCC) Atrial fibrillation [facility]* Diagnosis [...] (HCC) Chronic kidney disease, Stage IV (severe) 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 Long-term (current) use of anticoagulants Obesity, Class II, BMI 35-39.9 Obesity, unspecified Viral conjunctivitis Unspecified diseases of conjunctiva due to viruses Seasonal allergic rhinitis, unspecified trigger Bilateral impacted cerumen Impacted cerumen documented in this encounter [facility] note* Diagnosis penitentiary (current) use of anticoagulants- Primary Long-term (current) use of anticoagulants Paroxysmal atrial fibrillation (HCC) Atrial fibrillation documented in this encounter [facility] note* Diagnosis Paroxysmal atrial fibrillation (HCC) Atrial fibrillation documented in this encounter [facility] for referral (narrative)* Outpatient Procedure (Routine) - Pending Review Specialty Diagnoses / Procedures Referred By Contac t Referred To Contact [facility] [place] Diagnoses Bilateral carotid artery stenosis Procedures US CAROTID ARTERIES GRAY VAS LAB DUPLEX SCAN EXTRACRANIAL ART COMPL BI STUDY Alondra Prescott DO [address] [place] [address] [facility] [place] [address] Referral ID Status Reason Start Date Expiration Date Visits Requested Visits Authorized [id number] Pending Review Auto-Generat ed Referral 03/18/2022 03/16/2023 1 1 [facility] for referral (narrative)* Outpatient Procedure (Routine) - Authorized Specialty Diagnoses / Procedures Referred By Contac t Referred To Contact [facility] [place] Diagnoses Nonrheumatic aortic valve stenosis Procedures ECHO ECHO TTHRC R-T 2D W/WOM-MODE COMPL SPEC&COLR Pam Velazco MD [address] [place] [address] [facility] [address] [address] Referral ID Status Reason Start Date Expiration Date Visits Requested Visits Authorized [id number] Authorized Auto-Generat ed Referral 08/22/2022 08/15/2023 1 1 [facility] for referral (narrative)* Outpatient Procedure (Routine) - Pending Review Specialty Diagnoses / Procedures Referred By Contac t Referred To Contact [facility] Diagnoses Bilateral carotid artery stenosis Procedures US CAROTID ARTERIES GRAY VAS LAB DUPLEX SCAN EXTRACRANIAL ART COMPL BI STUDY Alondra Prescott DO [address] [place] [address] [address] Referral ID Status Reason Start Date Expiration Date Visits Requested Visits Authorized [id number] Pending Review Auto-Generat ed Referral 2 10/04/2023 1 1 [facility] for referral (narrative)* Outpatient Procedure (Routine) - Authorized Specialty Diagnoses / Procedures Referred By Contac t Referred To Contact [facility] Diagnoses Syncope, unspecified syncope type Aortic valve disorder Procedures ECHO ECHO TTHRC R-T 2D W/WOM-MODE COMPL SPEC&COLR D Pam Reddy MD [address] [place] [address] [facility] [address] [place] [address] Referral ID Status Reason Start Date Expiration Date Visits Requested Visits Authorized [id number] Authorized Auto-Generat ed Referral 02/20/2023 02/13/2024 1 1 [facility] for referral (narrative)* Outpatient Procedure (Routine) - Pending Review Specialty Diagnoses / Procedures Referred By Contac t Referred To Contact [facility] Diagnoses Syncope, unspecified syncope type Aortic valve disorder Procedures ECHO ECHO TTHRC R-T 2D W/WOM-MODE COMPL SPEC&COLR D Pam Reddy MD [address], [address] [place] [address] [facility] [place] [address] [place] [address] Referral ID Status Reason Start Date Expiration Date Visits Requested Visits Authorized [id number] Pending Review Auto-Generat ed Referral 04/08/2024 03/25/2025 1 1 * Outpatient Procedure (Routine) - Pending Review Specialty Diagnoses / Procedures Referred By Contac t Referred To Contact [facility] [place] Diagnoses Syncope, unspecified syncope type Aortic valve disorder Paroxysmal atrial fibrillation (HCC) Procedures ECG COMPLETE ECG ROUTINE ECG W/LEAST 12 LDS W/I&R Pam Reddy MD [address], [address] [place] [address] [facility] [place] [address] [place] [address] Referral ID Status Reason Start Date Expiration Date Visits Requested Visits Authorized [id number] Pending Review Auto-Generat ed Referral 03/21/2024 03/21/2025 1 1 [facility] for referral (narrative)* Diagnostic Procedure Only (Routine) - Authorized Specialty Diagnoses / Procedures Referred By Contac t Referred To Contact [facility] Diagnoses Renal insufficiency Procedures US KIDNEY/BLADDER US RETROPERITONEAL REAL TIME W/IMAGE COMPLETE Guanakito Reno MD [address] [place] [address] [place] [address] Referral ID Status Reason Start Date Expiration Date Visits Requested Visits Authorized [id number] Authorized Auto-Generat ed Referral 03/26/2024 04/25/2025 1 1 * Outpatient Procedure (Routine) - Pending Review Specialty Diagnoses / Procedures Referred By Contac t Referred [facility] Diagnoses History of carotid endarterectomy Procedures US CAROTID ARTERIES GRAY VAS LAB DUPLEX SCAN EXTRACRANIAL ART COMPL BI STUDY Guanakito Reno MD [address] [place] [address] [facility] [place] [address] [place] [address] Referral ID Status Reason Start Date Expiration Date Visits Requested Visits Authorized [id number] Pending Review Auto-Generat ed Referral 03/26/2024 03/26/2025 1 1 [facility] for referral (narrative)* Diagnostic Procedure Only (Routine) - Closed Specialty Diagnoses / Procedures Referred By Juveac t Referred To Contact [facility] Diagnoses Renal insufficiency Procedures US KIDNEY/BLADDER US RETROPERITONEAL REAL TIME W/IMAGE COMPLETE Guanakito Reno MD [address] [place] [address] [place] [address] Referral ID Status Reason Start Date Expiration Date V isits Requested Visits Authorized [id number] Closed Auto-Generate d Referral 03/26/2024 04/25/2025 1 1 [facility] for referral (narrative)* Diagnostic Procedure Only (Routine) - New Request Specialty Diagnoses / Procedures Referred By Anival t Referred To Contact [facility] Diagnoses Bilateral carotid artery stenosis History of carotid endarterectomy Procedures US CAROTID BILATERAL Laura Iraheta MD [address] [place] [address] [place] [address] Referral ID Status Reason Start Date Expiration Date Visits Requested Visits Authorized [id number] New Request Auto-Generat ed Referral 09/05/2025 1 1 [facility] Summary Purpose Family History No [...] Diagnoses Mixed dementia (HCC) Guanakito Reno MD [address] [place] [address] Referral ID Status Reason Start Date Expiration Date Visits Re quested Visits Authorized [id number] Closed 1 1 Referral ID Status Reason Start Date Expiration Date Visits Re quested Visits Authorized [id number] Closed 1 1 Specialty Diagnoses / Procedures Referred By Contac t Referred To Contact Podiatry Diagnoses Onychomycosis Procedures CONSULT TO PODIATRY OFFICE/OUTPATIENT [facility] 60-74 MINUTES Guanakito Reno MD [address] [place] [address] Referral ID Status Reason Start Date Expiration Date Visits Requested Visits Authorized [id number] Pending Review PCP Requested Referral 3 08/13/2024 1 1 Specialty Diagnoses / Procedures Referred By Contac t Referred To Contact Nephrology Diagnoses CKD (chronic kidney disease) stage 4, 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/min ([facility]) Anemia, unspecified type Procedures CONSULT TO NEPHROLOGY OFFICE/OUTPATIENT [facility] 60 MINUTES Guanakito Reno MD [address] [place] [id number] Referral ID Status Reason Start Date Expiration Date Visits Requested Visits Authorized [id number] Authorized PCP Requested Referral 04/05/2024 04/05/2025 1 1 Specialty Diagnoses / Procedures Referred By Contac t Referred To Contact Vascular Surgery Diagnoses Stenosis of left carotid artery Procedures CONSULT TO VASCULAR SURGERY OFFICE/OUTPATIENT [facility] M[facility] 60 MINUTES Josselyn Mayer, SIDE DOOR MAN.[employer] [address] [place] [address] Laura Iraheta MD [address] [place] [address] Referral ID Status Reason Start Date Expiration Date Visits Requested Visits Authorized [id number] Authorized PCP Requested Referral 07/10/2024 07/10/2025 1 1 Specialty Diagnoses / Procedures Referred By Contac t Referred To Contact Nephrology Diagnoses Chronic kidney disease, unspecified CKD stage Anemia in chronic kidney disease, unspecified CKD stage Procedures CONSULT TO NEPHROLOGY Josselyn Mayer, SIDE DOOR MAN.[facility] [address] [place] [address] Eladio Remy MD [address] [place] [address] Referral ID Status Reason Start Date Expiration Date Visits Requested Visits Authorized [id number] Ref Not Required PCP Requested Referral 07/10/2024 07/10/2025 1 1 Specialty Diagnoses / Procedures Referred By Contac t Referred To Contact Gerontology Diagnoses Dementia, unspecified dementia severity, unspecified dementia type, unspecified whether behavioral, psychotic, or mood disturbance or anxiety (HCC) Procedures CONSULT TO GERIATRICS OFFICE/OUTPATIENT [facility] 60 MINUTES Josselyn Mayer, SIDE DOOR MAN.[place] [address] [place] [address] Referral ID Status Reason Start Date Expiration Date Visits Requested Visits Authorized [id number] Authorized PCP Requested Referral 07/10/2024 07/10/2025 1 1 Specialty Diagnoses / Procedures Referred By Contac t Referred To Contact CT IMAGING Diagnoses Nonrheumatic aortic valve stenosis Encounter for preprocedural cardiovascular examination Procedures CTA CHEST (GATED) WO/W IVCON CT ANGIOGRAPHY CHEST W/CONTRAST/NONCONTRAST Josselyn Mayer, SIDE DOOR MAN.[facility] [address] [place] [address] Fax: Ct Imaging [facility] Referral ID Status Reason Start Date Expiration Date Visits Requested Visits Authorized [id number] Authorized Auto-Generat ed Referral 07/10/2024 08/09/2025 1 1 Specialty Diagnoses / Procedures Referred By Contac t Referred To Contact CT IMAGING Diagnoses Nonrheumatic aortic valve stenosis Encounter for preprocedural cardiovascular examination Procedures CTA ABD/PEL W IVCON CT ANGIO ABD&PLVIS CNTRST MTRL W/WO CNTRST IMGES Josselyn Mayer, SIDE DOOR MAN.[facility] [address] [place] [address] [address] [place] [address] Referral ID Status Reason Start Date Expiration Date Visits Requested Visits Authorized [id number] Authorized Auto-Generat ed Referral 07/10/2024 08/09/2025 1 1 Referral ID Status Reason Start Date Expiration Date V isits Requested Visits Authorized [id number] Closed Auto-Generate d Referral 07/10/2024 08/09/2025 1 1 Referral ID Status Reason Start Date Expiration Date V isits Requested Visits Authorized [id number] Closed Auto-Generate d Referral 07/10/2024 08/09/2025 1 [...] 12:30pm LABWORK April 17, 2025 5:00a m LONG-TERM LAB WORK April 24, 2025 5: 00am LONG-TERM LAB WORK April 29, 2025 6: 45am LONG-TERM LAB WORK May 01, 2025 5: 15am RIGHT HUMERUS May 02, 2025 10:1 1am Room 1 May 02, 2025 10:2 9am LONG-TERM LAB WORK May 06, 2025 4: 00am LONG-TERM LAB WORK May 08, 2025 5: 00am LONG-TERM LAB WORK May 13, 2025 5: 00am LONG-TERM LAB WORK May 15, 2025 5: 00am LONG-TERM LAB WORK May 20, 2025 4 :00am [...] section and content) DATE CREATED AUTHOR 04/06/2018 [facility] DATE CREATED AUTHOR AUTHOR'S ORGANIZ ATION 08/03/2025 [facility] DATE CREATED AUTHOR AUTHOR'S ORGANIZ ATION 08/12/2025 [facility] DATE CREATED AUTHOR AUTHOR'S ORGANIZ ATION 08/27/2025 [facility] Source Comments (unrecognize d section and content) In the event this informatio n is protected by the Federal Confidentiality of Alcohol and Drug Abuse Patient Records regulations: The Federal rules restrict any use of the information to criminally investigate or prosecute any alcohol or drug abuse patient.[facility] the event this information is protected by the Federal Confidentiality of Alcohol and Drug Abuse Patient Records regulations: The Federal rules restrict any use of the information to criminally investigate or prosecute any alcohol or drug abuse patient.[facility] the event this information is protected by the Federal Confidentiality of Alcohol and Drug Abuse Patient Records regulations: The Federal rules restrict any use of the information to criminally investigate or prosecute any alcohol or drug abuse patient.[facility] Center[facility] the event this information is protected by the Federal Confidentiality of Alcohol and Drug Abuse Patient Records regulations: The Federal rules restrict any use of the information to criminally investigate or prosecute any alcohol or drug abuse patient.[facility] the event this information is protected by the Federal Confidentiality of Alcohol and Drug Abuse Patient Records regulations: The Federal rules restrict any use of the information to criminally investigate or prosecute any alcohol or drug abuse patient.[facility] CenterIn the event this information is protected by the Federal Confidentiality of Alcohol and Drug Abuse Patient Records regulations: The Federal rules restrict any use of the information to criminally investigate or prosecute any alcohol or drug abuse patient.[facility] CenterIn the event this information is protected by the Federal Confidentiality of Alcohol and Drug Abuse Patient Records regulations: The Federal rules restrict any use of the information to criminally investigate or prosecute any alcohol or drug abuse patient.[facility] CenterIn the event this information is protected by the Federal Confidentiality of Alcohol and Drug Abuse Patient Records regulations: The Federal rules restrict any use of the information to criminally investigate or prosecute any alcohol or drug abuse patient.[facility] CenterIn the event this information is protected by the Federal Confidentiality of Alcohol and Drug Abuse Patient Records regulations: The Federal rules restrict any use of the information to criminally investigate or prosecute any alcohol or drug abuse patient.[facility] CenterIn the event this information is protected by the Federal Confidentiality of Alcohol and Drug Abuse Patient Records regulations: The Federal rules restrict any use of the information to criminally investigate or prosecute any alcohol or drug abuse patient.[facility] CenterIn the event this information is protected by the Federal Confidentiality of Alcohol and Drug Abuse Patient Records regulations: The Federal rules restrict any use of the information to criminally investigate or prosecute any alcohol or drug abuse patient.[facility] CenterIn the event this information is protected by the Federal Confidentiality of Alcohol and Drug Abuse Patient Records regulations: The Federal rules restrict any use of the information to criminally investigate or prosecute any alcohol or drug abuse patient.[facility] CenterIn the event this information is protected by the Federal Confidentiality of Alcohol and Drug Abuse Patient Records regulations: The Federal rules restrict any use of the information to criminally investigate or prosecute any alcohol or drug abuse patient.[facility] CenterIn the event this information is protected by the Federal Confidentiality of Alcohol and Drug Abuse Patient Records regulations: The Federal rules restrict any use of the information to criminally investigate or prosecute any alcohol or drug abuse patient.[facility] CenterIn the event this information is protected by the Federal Confidentiality of Alcohol and Drug Abuse Patient Records regulations: The Federal rules restrict any use of the information to criminally investigate or prosecute any alcohol or drug abuse patient.[facility] CenterIn the event this information is protected by the Federal Confidentiality of Alcohol and Drug Abuse Patient Records regulations: The Federal rules restrict any use of the information to criminally investigate or prosecute any alcohol or drug abuse patient.[facility] CenterIn the event this information is protected by the Federal Confidentiality of Alcohol and Drug Abuse Patient Records regulations: The Federal rules restrict any use of the information to criminally investigate or prosecute any alcohol or drug abuse patient.[facility] CenterIn the event this information is protected by the Federal Confidentiality of Alcohol and Drug Abuse Patient Records regulations: The Federal rules restrict any use of the information to criminally investigate or prosecute any alcohol or drug abuse patient.[facility] CenterIn the event this information is protected by the Federal Confidentiality of Alcohol and Drug Abuse Patient Records regulations: The Federal rules restrict any use of the information to criminally investigate or prosecute any alcohol or drug abuse patient.[facility] CenterIn the event this information is protected by the Federal Confidentiality of Alcohol and Drug Abuse Patient Records regulations: The Federal rules restrict any use of the information to criminally investigate or prosecute any alcohol or drug abuse patient.[facility] CenterIn the event this information is protected by the Federal Confidentiality of Alcohol and Drug Abuse Patient Records regulations: The Federal rules restrict any use of the information to criminally investigate or prosecute any alcohol or drug abuse patient.[facility] CenterIn the event this information is protected by the Federal Confidentiality of Alcohol and Drug Abuse Patient Records regulations: The Federal rules restrict any use of the information to criminally investigate or prosecute any alcohol or drug abuse patient.[facility] CenterIn the event this information is protected by the Federal Confidentiality of Alcohol and Drug Abuse Patient Records regulations: The Federal rules restrict any use of the information to criminally investigate or prosecute any alcohol or drug abuse patient.[facility] CenterIn the event this information is protected by the Federal Confidentiality of Alcohol and Drug Abuse Patient Records regulations: The Federal rules restrict any use of the information to criminally investigate or prosecute any alcohol or drug abuse patient.[facility] CenterIn the event this information is protected by the Federal Confidentiality of Alcohol and Drug Abuse Patient Records regulations: The Federal rules restrict any use of the information to criminally investigate or prosecute any alcohol or drug abuse patient.[facility] CenterIn the event this information is protected by the Federal Confidentiality of Alcohol and Drug Abuse Patient Records regulations: The Federal rules restrict any use of the information to criminally investigate or prosecute any alcohol or drug abuse patient.[facility]In the event this information is protected by the Federal Confidentiality of Alcohol and Drug Abuse Patient Records regulations: The Federal rules restrict any use of the information to criminally investigate or prosecute any alcohol or drug abuse patient.[facility] CenterIn the event this information is protected by the Federal Confidentiality of Alcohol and Drug Abuse Patient Records regulations: The Federal rules restrict any use of the information to criminally investigate or prosecute any alcohol or drug abuse patient.[facility]In the event this information is protected by the Federal Confidentiality of Alcohol and Drug Abuse Patient Records regulations: The Federal rules restrict any use of the information to criminally investigate or prosecute any alcohol or drug abuse patient.[facility]In the event this information is protected by the Federal Confidentiality of Alcohol and Drug Abuse Patient Records regulations: The Federal rules restrict any use of the information to criminally investigate or prosecute any alcohol or drug abuse patient.[facility]In the event this information is protected by the Federal Confidentiality of Alcohol and Drug Abuse Patient Records regulations: The Federal rules restrict any use of the information to criminally investigate or prosecute any alcohol or drug abuse patient.[facility]In the event this information is protected by the Federal Confidentiality of Alcohol and Drug Abuse Patient Records regulations: The Federal rules restrict any use of the information to criminally investigate or prosecute any alcohol or drug abuse patient.[facility]In the event this information is protected by the Federal Confidentiality of Alcohol and Drug Abuse Patient Records regulations: The Federal rules restrict any use of the information to criminally investigate or prosecute any alcohol or drug abuse patient.[facility]In the event this information is protected by the Federal Confidentiality of Alcohol and Drug Abuse Patient Records regulations: The Federal rules restrict any use of the information to criminally investigate or prosecute any alcohol or drug abuse patient.[facility]In the event this information is protected by the Federal Confidentiality of Alcohol and Drug Abuse Patient Records regulations: The Federal rules restrict any use of the information to criminally investigate or prosecute any alcohol or drug abuse patient.[facility]In the event this information is protected by the Federal Confidentiality of Alcohol and Drug Abuse Patient Records regulations: The Federal rules restrict any use of the information to criminally investigate or prosecute any alcohol or drug abuse patient.[facility]In the event this information is protected by the Federal Confidentiality of Alcohol and Drug Abuse Patient Records regulations: The Federal rules restrict any use of the information to criminally investigate or prosecute any alcohol or drug abuse patient.[facility]In the event this information is protected by the Federal Confidentiality of Alcohol and Drug Abuse Patient Records regulations: The Federal rules restrict any use of the information to criminally investigate or prosecute any alcohol or drug abuse patient.[facility]In the event this information is protected by the Federal Confidentiality of Alcohol and Drug Abuse Patient Records regulations: The Federal rules restrict any use of the information to criminally investigate or prosecute any alcohol or drug abuse patient.[facility]In the event this information is protected by the Federal Confidentiality of Alcohol and Drug Abuse Patient Records regulations: The Federal rules restrict any use of the information to criminally investigate or prosecute any alcohol or drug abuse patient.[facility]In the event this information is protected by the Federal Confidentiality of Alcohol and Drug Abuse Patient Records regulations: The Federal rules restrict any use of the information to criminally investigate or prosecute any alcohol or drug abuse patient.[facility]In the event this information is protected by the Federal Confidentiality of Alcohol and Drug Abuse Patient Records regulations: The Federal rules restrict any use of the information to criminally investigate or prosecute any alcohol or drug abuse patient.[facility]In the event this information is protected by the Federal Confidentiality of Alcohol and Drug Abuse Patient Records regulations: The Federal rules restrict any use of the information to criminally investigate or prosecute any alcohol or drug abuse patient.[facility]In the event this information is protected by the Federal Confidentiality of Alcohol and Drug Abuse Patient Records regulations: The Federal rules restrict any use of the information to criminally investigate or prosecute any alcohol or drug abuse patient.[facility]In the event this information is protected by the Federal Confidentiality of Alcohol and Drug Abuse Patient Records regulations: The Federal rules restrict any use of the information to criminally investigate or prosecute any alcohol or drug abuse patient.[facility]In the event this information is protected by the Federal Confidentiality of Alcohol and Drug Abuse Patient Records regulations: The Federal rules restrict any use of the information to criminally investigate or prosecute any alcohol or drug abuse patient.[facility]In the event this information is protected by the Federal Confidentiality of Alcohol and Drug Abuse Patient Records regulations: The Federal rules restrict any use of the information to criminally investigate or prosecute any alcohol or drug abuse patient.[facility]In the event this information is protected by the Federal Confidentiality of Alcohol and Drug Abuse Patient Records regulations: The Federal rules restrict any use of the information to criminally investigate or prosecute any alcohol or drug abuse patient.[facility]In the event this information is protected by the Federal Confidentiality of Alcohol and Drug Abuse Patient Records regulations: The Federal rules restrict any use of the information to criminally investigate or prosecute any alcohol or drug abuse patient.[facility]In the event this information is protected by the Federal Confidentiality of Alcohol and Drug Abuse Patient Records regulations: The Federal rules restrict any use of the information to criminally investigate or prosecute any alcohol or drug abuse patient.[facility]In the event this information is protected by the Federal Confidentiality of Alcohol and Drug Abuse Patient Records regulations: The Federal rules restrict any use of the information to criminally investigate or prosecute any alcohol or drug abuse patient.[facility]In the event this information is protected by the Federal Confidentiality of Alcohol and Drug Abuse Patient Records regulations: The Federal rules restrict any use of the information to criminally investigate or prosecute any alcohol or drug abuse patient.[facility]In the event this information is protected by the Federal Confidentiality of Alcohol and Drug Abuse Patient Records regulations: The Federal rules restrict any use of the information to criminally investigate or prosecute any alcohol or drug abuse patient.[facility]In the event this information is protected by the Federal Confidentiality of Alcohol and Drug Abuse Patient Records regulations: The Federal rules restrict any use of the information to criminally investigate or prosecute any alcohol or drug abuse patient.[facility]In the event this information is protected by the Federal Confidentiality of Alcohol and Drug Abuse Patient Records regulations: The Federal rules restrict any use of the information to criminally investigate or prosecute any alcohol or drug abuse patient.[facility]In the event this information is protected by the Federal Confidentiality of Alcohol and Drug Abuse Patient Records regulations: The Federal rules restrict any use of the information to criminally investigate or prosecute any alcohol or drug abuse patient.[facility]In the event this information is protected by the Federal Confidentiality of Alcohol and Drug Abuse Patient Records regulations: The Federal rules restrict any use of the information to criminally investigate or prosecute any alcohol or drug abuse patient.[facility]In the event this information is protected by the Federal Confidentiality of Alcohol and Drug Abuse Patient Records regulations: The Federal rules restrict any use of the information to criminally investigate or prosecute any alcohol or drug abuse patient.[facility]In the event this information is protected by the Federal Confidentiality of Alcohol and Drug Abuse Patient Records regulations: The Federal rules restrict any use of the information to criminally investigate or prosecute any alcohol or drug abuse patient.[facility]In the event this information is protected by the Federal Confidentiality of Alcohol and Drug Abuse Patient Records regulations: The Federal rules restrict any use of the information to criminally investigate or prosecute any alcohol or drug abuse patient.[facility]In the event this information is protected by the Federal Confidentiality of Alcohol and Drug Abuse Patient Records regulations: The Federal rules restrict any use of the information to criminally investigate or prosecute any alcohol or drug abuse patient.[facility]In the event this information is protected by the Federal Confidentiality of Alcohol and Drug Abuse Patient Records regulations: The Federal rules restrict any use of the information to criminally investigate or prosecute any alcohol or drug abuse patient.[facility]In the event this information is protected by the Federal Confidentiality of Alcohol and Drug Abuse Patient Records regulations: The Federal rules restrict any use of the information to criminally investigate or prosecute any alcohol or drug abuse patient.[facility]In the event this information is protected by the Federal Confidentiality of Alcohol and Drug Abuse Patient Records regulations: The Federal rules restrict any use of the information to criminally investigate or prosecute any alcohol or drug abuse patient.[facility]In the event this information is protected by the Federal Confidentiality of Alcohol and Drug Abuse Patient Records regulations: The Federal rules restrict any use of the information to criminally investigate or prosecute any alcohol or drug abuse patient.[facility]In the event this information is protected by the Federal Confidentiality of Alcohol and Drug Abuse Patient Records regulations: The Federal rules restrict any use of the information to criminally investigate or prosecute any alcohol or drug abuse patient.[facility]In the event this information is protected by the Federal Confidentiality of Alcohol and Drug Abuse Patient Records regulations: The Federal rules restrict any use of the information to criminally investigate or prosecute any alcohol or drug abuse patient.[facility]In the event this information is protected by the Federal Confidentiality of Alcohol and Drug Abuse Patient Records regulations: The Federal rules restrict any use of the information to criminally investigate or prosecute any alcohol or drug abuse patient.[facility]In the event this information is protected by the Federal Confidentiality of Alcohol and Drug Abuse Patient Records regulations: The Federal rules restrict any use of the information to criminally investigate or prosecute any alcohol or drug abuse patient.[facility]In the event this information is protected by the Federal Confidentiality of Alcohol and Drug Abuse Patient Records regulations: The Federal rules restrict any use of the information to criminally investigate or prosecute any alcohol or drug abuse patient.[facility]In the event this information is protected by the Federal Confidentiality of Alcohol and Drug Abuse Patient Records regulations: The Federal rules restrict any use of the information to criminally investigate or prosecute any alcohol or drug abuse patient.[facility]In the event this information is protected by the Federal Confidentiality of Alcohol and Drug Abuse Patient Records regulations: The Federal rules restrict any use of the information to criminally investigate or prosecute any alcohol or drug abuse patient.[facility]In the event this information is protected by the Federal Confidentiality of Alcohol and Drug Abuse Patient Records regulations: The Federal rules restrict any use of the information to criminally investigate or prosecute any alcohol or drug abuse patient.[facility]In the event this information is protected by the Federal Confidentiality of Alcohol and Drug Abuse Patient Records regulations: The Federal rules restrict any use of the information to criminally investigate or prosecute any alcohol or drug abuse patient.[facility]In the event this information is protected by the Federal Confidentiality of Alcohol and Drug Abuse Patient Records regulations: The Federal rules restrict any use of the information to criminally investigate or prosecute any alcohol or drug abuse patient.[facility]In the event this information is protected by the Federal Confidentiality of Alcohol and Drug Abuse Patient Records regulations: The Federal rules restrict any use of the information to criminally investigate or prosecute any alcohol or drug abuse patient.[facility]In the event this information is protected by the Federal Confidentiality of Alcohol and Drug Abuse Patient Records regulations: The Federal rules restrict any use of the information to criminally investigate or prosecute any alcohol or drug abuse patient.[facility]In the event this information is protected by the Federal Confidentiality of Alcohol and Drug Abuse Patient Records regulations: The Federal rules restrict any use of the information to criminally investigate or prosecute any alcohol or drug abuse patient.[facility]In the event this information is protected by the Federal Confidentiality of Alcohol and Drug Abuse Patient Records regulations: The Federal rules restrict any use of the information to criminally investigate or prosecute any alcohol or drug abuse patient.[facility]In the event this information is protected by the Federal Confidentiality of Alcohol and Drug Abuse Patient Records regulations: The Federal rules restrict any use of the information to criminally investigate or prosecute any alcohol or drug abuse patient.[facility]In the event this information is protected by the Federal Confidentiality of Alcohol and Drug Abuse Patient Records regulations: The Federal rules restrict any use of the information to criminally investigate or prosecute any alcohol or drug abuse patient.[facility]In the event this information is protected by the Federal Confidentiality of Alcohol and Drug Abuse Patient Records regulations: The Federal rules restrict any use of the information to criminally investigate or prosecute any alcohol or drug abuse patient.[facility]In the event this information is protected by the Federal Confidentiality of Alcohol and Drug Abuse Patient Records regulations: The Federal rules restrict any use of the information to criminally investigate or prosecute any alcohol or drug abuse patient.[facility] CenterIn the event this information is protected by the Federal Confidentiality of Alcohol and Drug Abuse Patient Records regulations: The Federal rules restrict any use of the information to criminally investigate or prosecute any alcohol or drug abuse patient.[facility] CenterIn the event this information is protected by the Federal Confidentiality of Alcohol and Drug Abuse Patient Records regulations: The Federal rules restrict any use of the information to criminally investigate or prosecute any alcohol or drug abuse patient.[facility] CenterIn the event this information is protected by the Federal Confidentiality of Alcohol and Drug Abuse Patient Records regulations: The Federal rules restrict any use of the information to criminally investigate or prosecute any alcohol or drug abuse patient.[facility] CenterIn the event this information is protected by the Federal Confidentiality of Alcohol and Drug Abuse Patient Records regulations: The Federal rules restrict any use of the information to criminally investigate or prosecute any alcohol or drug abuse patient.[facility] CenterIn the event this information is protected by the Federal Confidentiality of Alcohol and Drug Abuse Patient Records regulations: The Federal rules restrict any use of the information to criminally investigate or prosecute any alcohol or drug abuse patient.[facility] CenterIn the event this information is protected by the Federal Confidentiality of Alcohol and Drug Abuse Patient Records regulations: The Federal rules restrict any use of the information to criminally investigate or prosecute any alcohol or drug abuse patient.[facility] CenterIn the event this information is protected by the Federal Confidentiality of Alcohol and Drug Abuse Patient Records regulations: The Federal rules restrict any use of the information to criminally investigate or prosecute any alcohol or drug abuse patient.[facility] CenterIn the event this information is protected by the Federal Confidentiality of Alcohol and Drug Abuse Patient Records regulations: The Federal rules restrict any use of the information to criminally investigate or prosecute any alcohol or drug abuse patient.[facility] CenterIn the event this information is protected by the Federal Confidentiality of Alcohol and Drug Abuse Patient Records regulations: The Federal rules restrict any use of the information to criminally investigate or prosecute any alcohol or drug abuse patient.[facility] CenterIn the event this information is protected by the Federal Confidentiality of Alcohol and Drug Abuse Patient Records regulations: The Federal rules restrict any use of the information to criminally investigate or prosecute any alcohol or drug abuse patient.[facility] CenterIn the event this information is protected by the Federal Confidentiality of Alcohol and Drug Abuse Patient Records regulations: The Federal rules restrict any use of the information to criminally investigate or prosecute any alcohol or drug abuse patient.[facility] CenterIn the event this information is protected by the Federal Confidentiality of Alcohol and Drug Abuse Patient Records regulations: The Federal rules restrict any use of the information to criminally investigate or prosecute any alcohol or drug abuse patient.[facility] CenterIn the event this information is protected by the Federal Confidentiality of Alcohol and Drug Abuse Patient Records regulations: The Federal rules restrict any use of the information to criminally investigate or prosecute any alcohol or drug abuse patient.[facility] CenterIn the event this information is protected by the Federal Confidentiality of Alcohol and Drug Abuse Patient Records regulations: The Federal rules restrict any use of the information to criminally investigate or prosecute any alcohol or drug abuse patient.[facility] CenterIn the event this information is protected by the Federal Confidentiality of Alcohol and Drug Abuse Patient Records regulations: The Federal rules restrict any use of the information to criminally investigate or prosecute any alcohol or drug abuse patient.[facility] CenterIn the event this information is protected by the Federal Confidentiality of Alcohol and Drug Abuse Patient Records regulations: The Federal rules restrict any use of the information to criminally investigate or prosecute any alcohol or drug abuse patient.[facility] CenterIn the event this information is protected by the Federal Confidentiality of Alcohol and Drug Abuse Patient Records regulations: The Federal rules restrict any use of the information to criminally investigate or prosecute any alcohol or drug abuse patient.[facility] CenterIn the event this information is protected by the Federal Confidentiality of Alcohol and Drug Abuse Patient Records regulations: The Federal rules restrict any use of the information to criminally investigate or prosecute any alcohol or drug abuse patient.[facility] CenterIn the event this information is protected by the Federal Confidentiality of Alcohol and Drug Abuse Patient Records regulations: The Federal rules restrict any use of the information to criminally investigate or prosecute any alcohol or drug abuse patient.[facility] CenterIn the event this information is protected by the Federal Confidentiality of Alcohol and Drug Abuse Patient Records regulations: The Federal rules restrict any use of the information to criminally investigate or prosecute any alcohol or drug abuse patient.[facility] CenterIn the event this information is protected by the Federal Confidentiality of Alcohol and Drug Abuse Patient Records regulations: The Federal rules restrict any use of the information to criminally investigate or prosecute any alcohol or drug abuse patient.[facility] CenterIn the event this information is protected by the Federal Confidentiality of Alcohol and Drug Abuse Patient Records regulations: The Federal rules restrict any use of the information to criminally investigate or prosecute any alcohol or drug abuse patient.[facility] CenterIn the event this information is protected by the Federal Confidentiality of Alcohol and Drug Abuse Patient Records regulations: The Federal rules restrict any use of the information to criminally investigate or prosecute any alcohol or drug abuse patient.[facility] CenterIn the event this information is protected by the Federal Confidentiality of Alcohol and Drug Abuse Patient Records regulations: The Federal rules restrict any use of the information to criminally investigate or prosecute any alcohol or drug abuse patient.[facility] CenterIn the event this information is protected by the Federal Confidentiality of Alcohol and Drug Abuse Patient Records regulations: The Federal rules restrict any use of the information to criminally investigate or prosecute any alcohol or drug abuse patient.[facility] CenterIn the event this information is protected by the Federal Confidentiality of Alcohol and Drug Abuse Patient Records regulations: The Federal rules restrict any use of the information to criminally investigate or prosecute any alcohol or drug abuse patient.[facility] CenterIn the event this information is protected by the Federal Confidentiality of Alcohol and Drug Abuse Patient Records regulations: The Federal rules restrict any use of the information to criminally investigate or prosecute any alcohol or drug abuse patient.[facility] CenterIn the event this information is protected by the Federal Confidentiality of Alcohol and Drug Abuse Patient Records regulations: The Federal rules restrict any use of the information to criminally investigate or prosecute any alcohol or drug abuse patient.[facility] Reason for Visit (unrecogniz ed section and content) Reason Comments Follow Up Specialty Diagnoses / Procedures Referred By Anival aden Referred To Contact Family Practice / FAMILY MEDICINE Diagnoses Follow up/not seen since 02/2020 Procedures 4C EST Self Corrina Lennon APRN.[employer] INTERN [address] [place] [address] Referral ID Status Reason Start Date Expiration Date V isits Requested Visits Authorized [id number] Closed Patient Cleared - INN Insurance Found [...] Date Comments Population Health Navigation Outreach 06/14/2022 [facility] care gaps Reason Onset Date Comments Anticoagulation 06/06/2022 Home INR Reason Onset Date Comments Anticoagulation 2022 INR result Reason Onset Date Comments Refill Request 07/22/2022 Reason Onset Date Comments Anticoagulation Telephone Fu 08/01/2022 Gabrielle e INR Result Reason Comments Consult Specialty Diagnoses / Procedures Referred By Anival aden Referred To Contact Cardiology / CARD ADMIN [facility] Diagnoses Paroxysmal atrial fibrillation (HCC) Nonrheumatic aortic valve stenosis Procedures CONSULT TO CARDIOLOGY OFFICE/OUTPATIENT [facility] 60-74 MINUTES Corrina Lennon, ÁLVARO.FO[employer] AND BEVERAGE INTERN [address] [place] [address] Card Admin [facility] [address] [place] [address] Referral ID Status Reason Start Date Expiration Date V isits Requested Visits Authorized [id number] Closed PCP Requested Referral 02/28/2022 10/15/2022 1 [...] e INR Result Reason Onset Date Comments [facility] RN 2023 Medication Ad herence review per request of payer Reason Onset Date Comments Refill Request 07/04/2023 Reason Comments 6 Month Exam Reason Comments Results Reason Onset Date Comments [facility] RN 09/05/2023 Medication Ad herence review [...] Telephone Fu 03/07/2024 Reason Onset Date Comments [facility] RN 03/08/2024 Medication ad herence and [...] REAL TIME W/IMAGE COMPLETE Guanakito Reno MD [address] [place] [address] [place] [address] Referral ID Status Reason Start Date Expiration Date V isits Requested Visits Authorized [id number] Closed Auto-Generate d Referral 03/26/2024 04/25/2025 1 1 Reason Comments Follow Up htn- ultrasound on k idneys and labs, family worried about falls 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 Edema Bilateral leg [...] 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 [employer] [place] [address] Referral ID Status Reason Start Date Expiration Date Visits Re quested Visits Authorized [id number] 1 1 Reason Onset Date Comments Anticoagulation [...] e INR Result Reason Comments Faxed to [facility] Reason Onset Date Comments Refill Request 04/08/2025 Reason Comments Patient Question Care Teams (unrecognized sec tion and content) Quality Measurement Specialist Relationship Specialty Start Date End Date Guanakito Reno MD [address] [place] [address] PCP - General Family Practice 05/24/18 13, Pharmacist [address] [place] [address] Pharmacist Pharmacy 05/31/21 Quality Measurement Specialist Relationship Specialty Start Date End Date Guanakito Reno MD [address] [facility] [place] [address] PCP - General Family Practice 05/24/18 13, Pharmacist [address] [place] [address] Pharmacist Pharmacy 05/31/21 Quality Measurement Specialist Relationship Specialty Start Date End Date Guanakito Reno MD [address] [place] [address] PCP - General Family Practice 05/24/18 13, Pharmacist [address] [place] [address] Pharmacist Pharmacy 05/31/21 Quality Measurement Specialist Relationship Specialty Start Date End Date Guanakito Reno MD [address] [place] [address] PCP - General Family Practice 05/24/18 13, Pharmacist [address] [place] [address] Pharmacist Pharmacy 05/31/21 Quality Measurement Specialist Relationship Specialty Start Date End Date Guanakito Reno MD [address] [place] [address] PCP - General Family Practice 05/24/18 13, Pharmacist [address] [place] [address] Pharmacist Pharmacy 05/31/21 Quality Measurement Specialist Relationship Specialty Start Date End Date Guanakito Reno MD [address] [place] [address] PCP - General Family Practice 05/24/18 13, Pharmacist [address] [place] [address] Pharmacist Pharmacy 05/31/21 Quality Measurement Specialist Relationship Specialty Start Date End Date Guanakito Reno MD [address] [place] [address] PCP - General Family Practice 05/24/18 13, Pharmacist [address] [place] [address] Pharmacist Pharmacy 05/31/21 Quality Measurement Specialist Relationship Specialty Start Date End Date Guanakito Reno MD [address] [place] [address] PCP - General Family Practice 05/24/18 13, Pharmacist [address] [place] [address] Pharmacist Pharmacy 05/31/21 Quality Measurement Specialist Relationship Specialty Start Date End Date Guanakito Reno MD [address] [place] [address] PCP - General Family Practice 05/24/18 13, Pharmacist [phone] [place] [address], [place] [address] Pharmacist Pharmacy 05/31/21 Quality Measurement Specialist Relationship Specialty Start Date End Date Guanakito Reno MD [address] [place] [address] PCP - General Family Medicine 05/24/18 13, Pharmacist [address] [place] [address] Pharmacist Pharmacy 05/31/21 Quality Measurement Specialist Relationship Specialty Start Date End Date Guanakito Reno MD [address] [place] [address] PCP - General Family Medicine 05/24/18 13, Pharmacist [address] [place] [address] Pharmacist Pharmacy 05/31/21 Quality Measurement Specialist Relationship Specialty Start Date End Date Guanakito Reno MD [address] [place] [address] PCP - General Family Medicine 05/24/18 13, Pharmacist [address] [place] [address] Pharmacist Pharmacy 05/31/21 Quality Measurement Specialist Relationship Specialty Start Date End Date Guanakito Reno MD [address] [place] [address] PCP - General Family Medicine 05/24/18 13, Pharmacist [address]335 [place] [address] Pharmacist Pharmacy 05/31/21 Quality Measurement Specialist Relationship Specialty Start Date End Date Guanakito Reno MD [address] [place] [address] PCP - General Family Medicine 05/24/18 13, Pharmacist [address] [place] [address] Pharmacist Pharmacy 05/31/21 Quality Measurement Specialist Relationship Specialty Start Date End Date Guanakito Reno MD [address] [place] [address] PCP - General Family Medicine 05/24/18 13, Pharmacist [address] [place] [address] Pharmacist Pharmacy 05/31/21 Quality Measurement Specialist Relationship Specialty Start Date End Date Guanakito Reno MD [address] [place] [address] PCP - General Family Medicine 05/24/18 13, Pharmacist [address]461 [place] [address] Pharmacist Pharmacy 05/31/21 Quality Measurement Specialist Relationship Specialty Start Date End Date Guanakito Reno MD [address] [place] [address] PCP - General Family Medicine 05/24/18 13, Pharmacist [address]10 [place] [address] Pharmacist Pharmacy 05/31/21 Quality Measurement Specialist Relationship Specialty Start Date End Date Guanakito Reno MD [address] [place] [address] PCP - General Family Medicine 05/24/18 13, Pharmacist [address]95 [place] [address] Pharmacist Pharmacy 05/31/21 Quality Measurement Specialist Relationship Specialty Start Date End Date Guanakito Reno MD [address] [facility] [place] [address] PCP - General Family Medicine 05/24/18, Pharmacist [address] [place] [address] Pharmacist Pharmacy 05/31/21 Quality Measurement Specialist Relationship Specialty Start Date End Date Guanakito Reno MD [address] [place] [address] PCP - General Family Medicine 05/24/18, Pharmacist [phone] [place] [address] Pharmacist Pharmacy 05/31/21 Quality Measurement Specialist Relationship Specialty Start Date End Date Guanakito Reno MD [address] [place] [address] PCP - General Family Medicine 05/24/18, Pharmacist [address] [place] [address] Pharmacist Pharmacy 05/31/21 Quality Measurement Specialist Relationship Specialty Start Date End Date Guanakito Reno MD [address] [place] [address] PCP - General Family Medicine 05/24/18, Pharmacist [phone] [place] [address] Pharmacist Pharmacy 05/31/21 Quality Measurement Specialist Relationship Specialty Start Date End Date Guanakito Reno MD [address] [place] [address] PCP - General Family Medicine 05/24/18 13, Pharmacist [address] [place] [address] Pharmacist Pharmacy 05/31/21 Quality Measurement Specialist Relationship Specialty Start Date End Date Guanakito Reno MD [address] [place] [address] PCP - General Family Medicine 05/24/18 13, Pharmacist [address] [place] [address] Pharmacist Pharmacy 05/31/21 Quality Measurement Specialist Relationship Specialty Start Date End Date Guanakito Reno MD [address] [place] [address] PCP - General Family Medicine 05/24/18 13, Pharmacist [address] [place] [address] Pharmacist Pharmacy 05/31/21 Quality Measurement Specialist Relationship Specialty Start Date End Date Guanakito Reno MD [address] [place] [address] PCP - General Family Medicine 05/24/18 13, Pharmacist [address] [place] [address] Pharmacist Pharmacy 05/31/21 Quality Measurement Specialist Relationship Specialty Start Date End Date Guanakito Reno MD [address] [place] [address] PCP - General Family Medicine 05/24/18 13, Pharmacist [address] [place] [address] Pharmacist Pharmacy 05/31/21 Quality Measurement Specialist Relationship Specialty Start Date End Date Guanakito Reno MD [address] [place] [address] PCP - General Family Medicine 05/24/18 13, Pharmacist [address] [place] [address] Pharmacist Pharmacy 05/31/21 Quality Measurement Specialist Relationship Specialty Start Date End Date Guanakito Reno MD [address] [place] [address] PCP - General Family Medicine 05/24/18 13, Pharmacist [address] [place] [address] Pharmacist Pharmacy 05/31/21 Quality Measurement Specialist Relationship Specialty Start Date End Date Guanakito Reno MD [address] [place] [address] PCP - General Family Medicine 05/24/18 13, Pharmacist [address] [place] [address] Pharmacist Pharmacy 05/31/21 Quality Measurement Specialist Relationship Specialty Start Date End Date Guanakito Reno MD [address] [place] [address] PCP - General Family Medicine 05/24/18 13, Pharmacist [address] [place] [address] Pharmacist Pharmacy 05/31/21 Quality Measurement Specialist Relationship Specialty Start Date End Date Guanakito Reno MD [address] [place] [address] PCP - General Family Medicine 05/24/18 13, Pharmacist [address] [place] [address] Pharmacist Pharmacy 05/31/21 Quality Measurement Specialist Relationship Specialty Start Date End Date Guanakito Reno MD [address] [place] [address] PCP - General Family Medicine 05/24/18 13, Pharmacist [address] [place] [address] Pharmacist Pharmacy 05/31/21 Quality Measurement Specialist Relationship Specialty Start Date End Date Guanakito Reno MD [address] [place] [address] PCP - General Family Medicine 05/24/18 13, Pharmacist [address] [place] [address] Pharmacist Pharmacy 05/31/21 Quality Measurement Specialist Relationship Specialty Start Date End Date Guanakito Reno MD [address] [place] [address] PCP - General Family Medicine 05/24/18 13, Pharmacist [address] [place] [address] Pharmacist Pharmacy 05/31/21 Quality Measurement Specialist Relationship Specialty Start Date End Date Guanakito Reno MD [address] [place] [address] PCP - General Family Medicine 05/24/18 13, Pharmacist [address] [place] [address] Pharmacist Pharmacy 05/31/21 Quality Measurement Specialist Relationship Specialty Start Date End Date Guanakito Reno MD [address] [place] [address] PCP - General Family Medicine 05/24/18 13, Pharmacist [address] [place] [address] Pharmacist Pharmacy 05/31/21 Quality Measurement Specialist Relationship Specialty Start Date End Date Guanakito Reno MD [address] [place] [address] PCP - General Family Medicine 05/24/18, Pharmacist [address] [place] [address] Pharmacist Pharmacy 05/31/21 Quality Measurement Specialist Relationship Specialty Start Date End Date Guanakito Reno MD [address] [place] [address] PCP - General Family Medicine 05/24/18 13, Pharmacist [address] [place] [address] Pharmacist Pharmacy 05/31/21 Quality Measurement Specialist Relationship Specialty Start Date End Date Guaankito Reno MD [address] [place] [address] PCP - General Family Medicine 05/24/18 13, Pharmacist [address] [place] [address] Pharmacist Pharmacy 05/31/21 Quality Measurement Specialist Relationship Specialty Start Date End Date Guanakito Reno MD [address] [place] [address] PCP - General Family Medicine 05/24/18, Pharmacist [address] [place] [address] Pharmacist Pharmacy 05/31/21 Quality Measurement Specialist Relationship Specialty Start Date End Date Guanakito Reno MD [address] [place] [address] PCP - General Family Medicine 05/24/18, Pharmacist [address] [place] [address] Pharmacist Pharmacy 05/31/21 Quality Measurement Specialist Relationship Specialty Start Date End Date Guanakito Reno MD [address] [place] [address] PCP - General Family Medicine 05/24/18, Pharmacist [address] [place] [address] Pharmacist Pharmacy 05/31/21 Quality Measurement Specialist Relationship Specialty Start Date End Date Guanakito Reno MD [address] [place] [address] PCP - General Family Medicine 05/24/18 13, Pharmacist [address] [place] [address] Pharmacist Pharmacy 05/31/21 Quality Measurement Specialist Relationship Specialty Start Date End Date Guanakito Reno MD [address] [place] [address] PCP - General Family Medicine 05/24/18 13, Pharmacist [address] [place] [address] Pharmacist Pharmacy 05/31/21 Quality Measurement Specialist Relationship Specialty Start Date End Date Guanakito Reno MD [address] [place] [address] PCP - General Family Medicine 05/24/18 13, Pharmacist [address] [place] [address] Pharmacist Pharmacy 05/31/21 Quality Measurement Specialist Relationship Specialty Start Date End Date Guanakito Reno MD [address] [place] [address] PCP - General Family Medicine 05/24/18 13, Pharmacist [address] [place] [address] Pharmacist Pharmacy 05/31/21 Quality Measurement Specialist Relationship Specialty Start Date End Date Guanakito Reno MD [address] [place] [address] PCP - General Family Medicine 05/24/18 13, Pharmacist [address] [place] [address] Pharmacist Pharmacy 05/31/21 Quality Measurement Specialist Relationship Specialty Start Date End Date Guanakito Reno MD [address] [place] [address] PCP - General Family Medicine 05/24/18 13, Pharmacist [address] [place] [address] Pharmacist Pharmacy 05/31/21 Quality Measurement Specialist Relationship Specialty Start Date End Date Guanakito Reno MD [address] [place] [address] PCP - General Family Medicine 05/24/18 13, Pharmacist [address] [place] [address] Pharmacist Pharmacy 05/31/21 Quality Measurement Specialist Relationship Specialty Start Date End Date Guanakito Reno MD [address] [facility] [place] [address] PCP - General Family Medicine 05/24/18 13, Pharmacist [address] [place] [address] Pharmacist Pharmacy 05/31/21 Quality Measurement Specialist Relationship Specialty Start Date End Date Guanakito Reno MD [address] [place] [address] PCP - General Family Medicine 05/24/18 13, Pharmacist [address] [place] [address] Pharmacist Pharmacy 05/31/21 Corrina Lennon APRN.FOOD AND BEVERAGE INTERN [address] [place] [address] Director International Family Medicine 09/23/24 Carolina Landeros APRN.FOOD AND BEVERAGE INTERN [address] [place] [address] Director International Family Medicine 09/23/24 Quality Measurement Specialist Relationship Specialty Start Date End Date Guanakito Reno MD [address] [place] [address] PCP - General Family Medicine 05/24/18 13, Pharmacist [address] [place] [address] Pharmacist Pharmacy 05/31/21 Corrina Lennon APRN.[employer]OD AND BEVERAGE INTERN [address] [place] [address] Director International Family Medicine 09/23/24 Carolina Landeros APRN.[employer] BEVERAGE INTERN [address] [facility] [place] [address] Director International Family Medicine 09/23/24 Quality Measurement Specialist Relationship Specialty Start Date End Date Guanakito Reno MD [address] [place] [address] PCP - General Family Medicine 05/24/18 13, Pharmacist [id number] [place] [address] Pharmacist Pharmacy 05/31/21 Corrina Lennon SIDE DOOR MAN.[employer]EVERAGE INTERN [address] [place] [address] Director International Family [facility] 09/23/24 Carolina Landeros SIDE DOOR MAN.[employer] BEVERAGE INTERN [address] [place] [address] Director International [facility] 09/23/24 Quality Measurement Specialist Relationship Specialty Start Date End Date Guanakito Reno MD [address] [place] [address] PCP - General Family Medicine 05/24/18 13, Pharmacist [id number] [place] [address] Pharmacist Pharmacy 05/31/21 Corrina Lennon APRN.FOOD AND BEVERAGE INTERN [address] [place] [address] Director International Family Medicine 09/23/24 Carolina Landeros APRN.[employer] AND BEVERAGE INTERN [address] [place] [address] Director International [facility] 09/23/24 Quality Measurement Specialist Relationship Specialty Start Date End Date Guanakito Reno MD [address] [place] [address] PCP - General Family Medicine 05/24/18 13, Pharmacist [address] [place] [address] Pharmacist Pharmacy 05/31/21 Corrina Lennon APRN.FOOD AND BEVERAGE INTERN [address] [place] [address] Director International Family Medicine 09/23/24 Carolina Landeros APRN.[employer]OD AND BEVERAGE INTERN [address] [place] [address] Director International Family [facility] 09/23/24 Quality Measurement Specialist Relationship Specialty Start Date End Date Guanakito Reno MD [address] [place] [address] PCP - General Family Medicine 05/24/18 13, Pharmacist [address] [place] [address] Pharmacist Pharmacy 05/31/21 Corrina Lennon APRN.FOOD AND BEVERAGE INTERN [address] [place] [address] Director International Family Medicine 09/23/24 Carolina Landeros SIDE DOOR MAN.[employer]EVERAGE INTERN [address] [place] [address] Director International Family [facility] 09/23/24 Quality Measurement Specialist Relationship Specialty Start Date End Date Guanakito Reno MD [address] [place] [address] PCP - General Family Medicine 05/24/18 13, Pharmacist [address] [place] [address] Pharmacist Pharmacy 05/31/21 Corrina Lennon APRN.FOOD AND BEVERAGE INTERN [address] [place] [address] Director International Family Medicine 09/23/24 Carolina Landeros APRN.FOOD AND BEVERAGE INTERN [address] [facility] [place] [address] Director International Family Medicine 09/23/24 Quality Measurement Specialist Relationship Specialty Start Date End Date Guanakito Reno MD [address] [place] [address] PCP - General Family Medicine 05/24/18 13, Pharmacist [id number] [place] [address] Pharmacist Pharmacy 05/31/21 Corrina Lennon APRN.FOOD AND BEVERAGE INTERN [address] [place] [address] Director International [facility] Medicine 09/23/24 Carolina Landeros APRN.FOOD AND BEVERAGE INTERN [address] [place] [address] [facility] Quality Measurement Specialist Relationship Specialty Start Date End Date Guanakito Reno MD [address] [place] [address] PCP - General Family Medicine 05/24/18 13, Pharmacist [address] [place] [address] Pharmacist Pharmacy 05/31/21 Corrina Lennon APRN.FOOD AND BEVERAGE INTERN [address] [place] [address] Director International Family Medicine 09/23/24 Carolina Landeros APRN.FO[employer] AND [employer]AGE INTERN [address] [facility] [place] [address] Director International Family Medicine 09/23/24 Quality Measurement Specialist Relationship Specialty Start Date End Date Guanakito Reno MD [address] [place] [address] PCP - General Family Medicine 05/24/18 13, Pharmacist [address] [place] [address] Pharmacist Pharmacy 05/31/21 Corrina Lennon SIDE DOOR MAN.FO[employer] AND BEVERAGE INTERN [address] [place] [address] Director International [facility] Medicine 09/23/24 Carolina Landeros SIDE DOOR MAN.[employer] BEVERAGE INTERN [address] [place] [address] [facility] 09/23/24 Quality Measurement Specialist Relationship Specialty Start Date End Date Guanakito Reno MD [address] [place] [address] PCP - General Family Medicine 05/24/18 13, Pharmacist [address] [place] [address] Pharmacist Pharmacy 05/31/21 Corrina Lennon SIDE DOOR MAN.FO[employer]EVERAGE INTERN [address] [place] [address] Director International Family [facility] 09/23/24 Carolina Landeros SIDE DOOR MAN.FO[employer] BEVERAGE INTERN [address] [place] [address] Director International Family [facility] 09/23/24 Quality Measurement Specialist Relationship Specialty Start Date End Date Guanakito Reno MD [address] [place] [address] PCP - General Family Medicine 05/24/18 13, Pharmacist [id number] [place] [address] Pharmacist Pharmacy 05/31/21 Corrina Lennon, SIDE DOOR MAN.FO[employer] AND BEVERAGE INTERN [address] [facility], [place] [id number] Director International [facility] 09/23/24 Carolina Landeros, SIDE DOOR MAN.[employer] INTERN [address] [facility] [place], [place] [address] Director International [facility] 09/23/24 Team Status: Active Member Role/Relationship Status [...] Inactive Member Role/Relationship Status Dates Dr. Guanakito Reon MD Primary Care Provider Active Start: May [...] BE BASED ON THE PRIMARY CLINICAL RECORDS. [facility] [employer] provides no warranty or guarantee of the accuracy or completeness of information in this document.
[2025-09-23 09:27] LABS: Prothrombin Time (Protime)PT. 27.1 SECONDS (11.7-14.9)
== END ==
LOC: OLS.SW 04:00
PROVIDERS: PCP Family Medicine; Referring Provider Family Medicine; Visit Provider Family Medicine
DX: I48.91 Unspecified atrial fibrillation (principal); Z79.01 Long term (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; Z79.899 Other long term (current) drug therapy
CPT/HCPCS: 36415; 85610

== ENCOUNTER → 2025-10-07 05:00 | Outpatient (REF) | payer MEDICARE, SELFPAY ==
--- OUTSIDE RECORDS SUMMARY | 2025-10-07 04:04 | XMS RPT_ITS | CCD ---
Author Organization [facility] Care Team Providers Care Director Of Media Name Role Phone VIPIN CARDONA Unavailable Unavailable [...] Guanakito Reno MD Primary Care Provider Haagen PAPER SORTER.CAR SHAKEOUT OPERATOR, Corrina Unavailable Suppan PAPER SORTER.CAR SHAKEOUT OPERATOR, Carolina A Unavailable Suppan PAPER SORTER.CAR SHAKEOUT OPERATOR, Carolina A Unavailable [phone] Dr. Guanakito Reno MD Primary Care Provider [...] ilable SHADIA, GUANAKITO J Primary Care Unavailable [place], Guanakito Referring Unavailable David Navarrete Attending Unavailable Shadia, Guanakito Primary Care Unavailable Burt Zamora Attending Unavailable [place], Guanakito Primary Care Unavailable Bianka Olivera Attending Unavailable Shadia, Guanakito Primary Care Unavailable Josafat Oliva Attending Unavailable Shadia, Guanakito Primary Care Unavailable Bianka Olivera Attending Unavailable Shadia, Guanakito Primary Care Unavailable Josafat Oliva Attending Unavailable Shadia, Guanakito Primary Care Unavailable Josafat Oliva Attending Unavailable Shadia, Guanakito Primary Care Unavailable Josafat Oliva Attending Unavailable Shadia, Guanakito Primary Care Unavailable Rqauel, Josafat Referring Unavailable Raquel, Josafat Attending Unavailable Shadia, Guanakito Primary Care Unavailable Josafat Oliva Referring Unavailable [place], Guanakito Primary Care Unavailable Josafat Oliva Attending Unavailable Josafat Oliva Attending Unavailable [place], Guanakito Primary Care Unavailable Josafat Oliva Attending Unavailable Shadia, Guanakito Primary Care Unavailable [place], Guanakito Primary Care Unavailable Josafat Oliva Attending Unavailable Josafat Oliva Attending Unavailable Shadia, Guanakito Primary Care Unavailable [place], Guanakito Primary Care Unavailable Josafat Oliva Attending Unavailable Josafat Oliva Attending Unavailable Shadia, Guanakito Primary Care Unavailable Josafat Oliva Attending Unavailable [place], Guanakito Primary Care Unavailable Josafat Oliva Referring Unavailable Josafat Oliva Attending Unavailable [place], Guanakito Primary Care Unavailable Josafat Oliva Attending Unavailable [place], Guanakito Primary Care Unavailable Josafat Oliva Attending Unavailable Shadia, Guanakito Primary Care Unavailable Josafat Oliva Referring Unavailable Josafat Oliva Attending Unavailable [place], Guanakito Primary Care Unavailable Josafat Oliva Attending Unavailable Shadia, Guanakito Primary Care Unavailable SimonJosafat Barahona Attending Unavailable Shadia, Guanakito Primary Care Unavailable Josafat Oliva Attending Unavailable [place], Guanakito Primary Care Unavailable Shadia, Guanakito Referring Unavailable Mollison, Josafat Attending Unavailable [place], Guanakito Primary Care Unavailable Allergies Allergy Classification Reported Allergen(s) Allergy Type Date of Onset Reaction(s) Facility (4 sources) Environmental Allergies: Uncoded; Translations: [Environmental Allergies: Uncoded] Allergy to substance [facility] Medications Current Medications Medication Drug [...] hydrochloride 10 mg oral tablet (20 sources) X-qzvkna-S-aspart ate Receptor Antagonist Start: 08-21-2019 End: 01-21-2025 [...] 4 11-11-2016 Chronic Other aftercare (2 sources) 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; Translations: [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] Onset: 0 Episodic Other aftercare (1 source) Other bed bug exterminator (current) drug therapy; Translations: [Other bed bug exterminator (current) drug therapy] Onset: 5 Episodic Other [...] Coag (PPP) [Relative time] 1.6 {INR} Normal [facility] Comment on above: Order Comment: 317.1 Performed By: #### L 300.3900 #### [facility] [address] [place], [place], [id number] PT Coag (PPP) [Time] 19.6 s High 11.7-14.9 [facility] Comment on above: Order Comment: 317.1 Performed By: #### L 300.3900 #### [facility] [address] [place], [place], [id number] ([address] Prothrombin Time w/INRon INR Coag (PPP) [Relative time] 1.7 {INR} Normal [facility] Comment on above: Order Comment: 317.1 Performed By: #### L 300.3900 #### [facility] [address] [place], [address] PT Coag (PPP) [Time] 20.1 s High 11.7-14.9 [facility] Comment on above: Order Comment: 317.1 Performed By: #### L 300.3900 #### [facility] [address] [place], [place], [address] Protime w/INR Fingerstickon 08-14-2025 INR Coag (PPP) [Relative time] 1.9 {INR} Normal [facility] Comment on above: Result Comment: Crit ical Value > 4.0 Performed By: #### L 300.3900 #### [facility] [address] [place], [place], [address] Protime Coagsen 21.4 SEC High 11.7-14.9 [facility] Comment on above: Performed By: #### L 300.3900 #### [facility] [address] [place], [place], [address] CNPNon 08-11-2025 [facility] Telephone (NetTalon) -------- CAL MITCHELL ([id number]) 1945 M Date Time Provider Department 08/11/25 LAURA IRAHETA During your visit today, we recorded the following information about you: Jimmy Kwon 08/11/2025 10:52 AM Signed Annual f/u - Bilateral carotid artery stenosis, hx of carotid endarterectomy - US PRIOR Spoke w/daughter first - stated he was now a resident of [facility]. Updated pt's demographics with new info/ph numbers. Transferred to and left detailed VM with [place]'s transportation supervisor, Yanci (schedule's resident's appts) to schedule pt's [...] stenosis of unspecified carotid a*10/25/2013 03/26/2024 Frequency [[id number]] 02/11/2016 03/26/2024 BPH (benign prostatic hypertrophy) with [...] Hypertensive kidney disease with stage 3 chroni*01/29/2020 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 [Z79.*02/04/2020 Dementia, vascular, [...] Encounter Status:Closed by JIMMY KWON on 08/11/25 [facility] CNPIndu [facility] CAL MITCHELL ([id number]) 1945 M Date Time Provider Department 08/01/25 [facility] During your visit today, we recorded the following information about you: Olivia Heredia, BENJIE 08/01/2025 10:33 AM Signed Patient's son Gustavo calling in asking for advise from Dr. Reno, for patient. Gustavo states patient is now receiving bed bug exterminator care at [facility] and his care is being managed [...] 3 years, if needed? Please advise sonGustavo. [phone] Guanakito Reno MD 08/01/2025 11:00 AM Signed [...] Fully Assessed Reason for Visit: Patient Question [1327] Prescriptions as of 08/01/2025 - warfarin (COUMADIN) [...] stenosis of unspecified carotid a*10/25/2013 03/26/2024 Frequency [[id number]] 02/11/2016 03/26/2024 BPH (benign prostatic hypertrophy) with [...] First de (more content not included)... Normal [facility] Prothrombin Time w/INRon INR Coag (PPP) [Relative time] 2.0 {INR} Normal [facility] Comment on above: Order Comment: 317.1 Performed By: #### L 300.3900 #### [facility] [address] [place], [address] PT Coag (PPP) [Time] 22.7 s High 11.7-14.9 [facility] Comment on above: Order Comment: 317.1 Performed By: #### L 300.3900 #### [facility] [address] [place], [address] Protime w/INR Fingerstickon 07-17-2025 INR Coag (PPP) [Relative time] 2.0 {INR} Normal [facility] Comment on above: Result Comment: Crit ical Value > 4.0 Performed By: #### L 300.3900 #### [facility] [address] [place], [address] Protime Coagsen 22.3 SEC High 11.7-14.9 [facility] Comment on above: Performed By: #### L 300.3900 #### [facility] [address] [place], [address] Prothrombin Time w/INRon INR Coag (PPP) [Relative time] 2.0 {INR} Normal [facility] Comment on above: Order Comment: 317.1 Performed By: #### L 300.3900 #### [facility] [address] [place], [address] PT Coag (PPP) [Time] 22.8 s High 11.7-14.9 [facility] Comment on above: Order Comment: 317.1 Performed By: #### L 300.3900 #### [facility] [address] [place], [address] Prothrombin Time w/INRon INR Coag (PPP) [Relative time] 2.1 {INR} Normal [facility] Comment on above: Performed By: #### L 300.3900 #### [facility] [address] [place], [address] PT Coag (PPP) [Time] 24.2 s High 11.7-14.9 [facility] Comment on above: Performed By: #### L 300.3900 #### [facility] [address] [place], [address] Protime w/INR Fingerstickon 06-17-2025 INR Coag (PPP) [Relative time] 2.1 {INR} Normal [facility] Comment on above: Result Comment: Crit ical Value > 4.0 Performed By: #### L 9200.0000 #### [facility] [address] [place], [address] Protime Coagsen 22.8 SEC High 11.7-14.9 [facility] Comment on above: Performed By: #### L 9200.0000 #### [facility] [address] [place], [address] Prothrombin Time w/INRon INR Coag (PPP) [Relative time] 1.9 {INR} Normal [facility] Comment on above: Order Comment: 317.1 Performed By: #### L 300.3900 #### [facility] [address] [place], [address] PT Coag (PPP) [Time] 22.4 s High 11.7-14.9 [facility] Comment on above: Order Comment: 317.1 Performed By: #### L 300.3900 #### [facility] [address], [address] Prothrombin Time w/INRon INR Normal [facility] Comment on above: Result Comment: ANTONINO JONES SEE [id number]:[id number] Performed By: #### L 300.3900 #### [facility] [address] [place], [address] PROTIME Normal 11.7-14.9 [facility] Comment on above: Result Comment: ANTONINO JONES SEE [id number]:[id number] Performed By: #### L 300.3900 #### [facility] [address] [place], [address] International normalized rat io (INR) calculationOrdered By: Josafat Simon on 06-03-2025 INR Coag (Bld) [Relative time] 3.0 {INR} [facility] Prothrombin Time w/INRon INR Coag (PPP) [Relative time] 3.0 {INR} Normal [facility] Comment on above: Order Comment: 317.1 Performed By: #### L 300.3900 #### [facility] [address] [place], [address] PT Coag (PPP) [Time] 31.4 s High 11.7-14.9 [facility] Comment on above: Order Comment: 317.1 Performed By: #### L 300.3900 #### [facility] [address] [place], [address] Prothrombin timeOrdered By: Josafat Simon on 06-03-2025 PT Coag (PPP) [Time] 31.4 s High 11.7-14.9 [facility] International normalized rat io (INR) measurement by fingerstickOrdered By: Josafat Simon on 05-27-2025 INR Coag (BldC) [Relative time] 2.3 [facility] Comment on above: Critical Value > 4.0 Protime w/INR Fingerstickon 05-27-2025 INR Coag (PPP) [Relative time] 2.3 {INR} Normal [facility] Comment on above: Result Comment: Crit ical Value > 4.0 Performed By: #### L 300.3900 #### [facility] [address] [place], [address] Protime Coagsen 24.6 SEC High 11.7-14.9 [facility] Comment on above: Performed By: #### L 300.3900 #### [facility] [place], [address] Whole blood prothrombin time Ordered By: Josafat Simon on 05-27-2025 PT Coag (Bld) [Time] 24.6 s High 11.7-14.9 [facility] International normalized rat io (INR) measurement by fingerstickOrdered By: Josafat Simon on 05-20-2025 INR Coag (BldC) [Relative time] 2.7 [facility] Comment on above: Critical Value > 4.0 Protime w/INR Fingerstickon 05-20-2025 INR Coag (PPP) [Relative time] 2.7 {INR} Normal [facility] Comment on above: Result Comment: Crit ical Value > 4.0 Performed By: #### L 300.3900 #### [facility] [address] [place], [address] Protime Coagsen 28.2 SEC High 11.7-14.9 [facility] Comment on above: Performed By: #### L 300.3900 #### [facility] [address] [place], [address] Whole blood prothrombin time Ordered By: Josafat Simon on 05-20-2025 PT Coag (Bld) [Time] 28.2 s High 11.7-14.9 [facility] International normalized rat io (INR) calculationOrdered By: Josafat Simon on 05-15-2025 INR Coag (Bld) [Relative time] 2.3 {INR} [facility] Prothrombin Time w/INRon INR Coag (PPP) [Relative time] 2.3 {INR} Normal [facility] Comment on above: Order Comment: 317.1 Performed By: #### L 300.3900 #### [facility] [address] [place], [address] Prothrombin timeOrdered By: Josafat Simon on 05-15-2025 PT Coag (PPP) [Time] 25.3 s High 11.7-14.9 [facility] Comment on above: Order Comment: 317.1 Performed By: #### L 300.3900 #### [facility] [address] [place], [address] International normalized rat io (INR) calculationOrdered By: Josafat Simon on 05-13-2025 INR Coag (Bld) [Relative time] 1.7 {INR} [facility] Prothrombin Time w/INRon INR Coag (PPP) [Relative time] 1.7 {INR} Normal [facility] Comment on above: Order Comment: 317.1 Performed By: #### L 300.3900 #### [facility] [address] [place], [address] ([address] PT Coag (PPP) [Time] 20.6 s High 11.7-14.9 [facility] Comment on above: Order Comment: 317.1 Performed By: #### L 300.3900 #### [facility] [address] [place], [address] Prothrombin timeOrdered By: Josafat Simon on 05-13-2025 PT Coag (PPP) [Time] 20.6 s High 11.7-14.9 [facility] International normalized rat io (INR) calculationOrdered By: Josafat Simon on 05-08-2025 INR Coag (Bld) [Relative time] 3.2 {INR} [facility] Prothrombin Time w/INRon INR Coag (PPP) [Relative time] 3.2 {INR} Normal [facility] Comment on above: Order Comment: 317.1 Performed By: #### L 300.3900 #### [facility] [address] [place], [address] PT Coag (PPP) [Time] 33.1 s High 11.7-14.9 [facility] Comment on above: Order Comment: 317.1 Performed By: #### L 300.3900 #### [facility] [address] [place], [address] Prothrombin timeOrdered By: Josafat Simon on 05-08-2025 PT Coag (PPP) [Time] 33.1 s High 11.7-14.9 [facility] International normalized rat io (INR) calculationOrdered By: Josafat Simon on 05-06-2025 INR Coag (Bld) [Relative time] 4.1 {INR} High [facility] Comment on above: CRITICAL VALUE ZABALA D TO IRMA SOLOMON (OLS.SW)05/06/25 0801 Travis Yost.RESULTS READ BACK BY SAME. Prothrombin Time w/INRon INR Coag (PPP) [Relative time] 4.1 {INR} Invalid Interpretation Code [facility] Comment on above: Order Comment: FLORES RSTICK CONFIRMATION Result Comment: CRIT ICAL VALUE CALLED TO IRMA SOLOMON (NEELIMA.) 05/06/25 0801 Travis Yost. RESULTS READ BACK BY SAME. Performed By: #### L 300.3900 #### [facility] [address] [place], [address] PT Coag (PPP) [Time] 40.8 s High 11.7-14.9 [facility] Comment on above: Order Comment: FINGE RSTICK CONFIRMATION Performed By: #### L 300.3900 #### [facility] [address] [place], [address] Prothrombin timeOrdered By: Josafat Simon on 05-06-2025 PT Coag (PPP) [Time] 40.8 s High 11.7-14.9 [facility] Protime w/INR Fingerstickon 05-06-2025 INR Coag (PPP) [Relative time] 4.3 {INR} Invalid Interpretation Code [facility] Comment on above: Result Comment: Crit ical Value > 4.0 Performed By: #### L 300.3900 #### [facility] [address] [place], [address] Protime Coagsen 42.3 SEC High 11.7-14.9 [facility] Comment on above: Performed By: #### L 300.3900 #### [facility] [address] [place], [address] Whole blood prothrombin time Ordered By: Josafat Simon on 05-06-2025 PT Coag (Bld) [Time] 42.3 s High 11.7-14.9 [facility] Orthopedic Visit Reporton Orthopedic Visit Report [facility] [address] [place] [address] [address] [place], [place] [address] OFFICE VISIT Date of Service: 05/02/25 MR#: [id number] Acct: [id number] Name: CAL MITCHELL Rep #: [id number] : 1945 Provider: Dr. David Jones so, DO Age/Sex: 79/M Location: [facility] Status: Signed Intake Vital Signs 03/07/25 12:57 [...] is here today with his son and jgebiwrm-mo-zxk. Usually ambulates with a walker or a cane. Had a fall. Was mainly complaining about pain to the upper extremity was seen in a peripheral hospital referred here given a sling they found approximately wrist fracture on the right side. The patient does not speak very much but he converses overall well he is kqiye-hzoa-dkrjqgef fairly stoic. Plan:79-year-old man with a (more content not included)... Normal [facility] Shoulder min 2 Viewson 05-02 Shoulder min 2 Views [facility] [address] [place], [place] [address] Shoulder min 2 Views MR#: [id number] Acct: [id number] Name: CAL MITCHELL Rep #: [id number] : 1945 M 79 From: Magdalena Lala PCP: Dr. Guanakito Reno MD Status: DEP AMB Study: Shoulder min 2 Views Date of Exam: 05/02/25 Exam# [id number] Ordering Dr: David Navarrete DO PROCEDURE: SHOULDER [...] changes involving the glenohumeral joint. Reading Location: [id number] CC: Dr. David Navarrete DO; Dr. Guanakito Reno MD Human Services Assistant: Signed Normal [facility] International normalized rat io (INR) calculationOrdered By: Josafat Simon on 05-01-2025 INR Coag (Bld) [Relative time] 3.2 {INR} [facility] Prothrombin Time w/INRon INR Coag (PPP) [Relative time] 3.2 {INR} Normal [facility] Comment on above: Performed By: #### L 300.3900 #### [facility] [address] [place], [place], [id number] ([address] PT Coag (PPP) [Time] 33.6 s High 11.7-14.9 [facility] Comment on above: Performed By: #### L 300.3900 #### [facility] [address] [place], [address] Prothrombin timeOrdered By: Josafat Simon on 05-01-2025 PT Coag (PPP) [Time] 33.6 s High 11.7-14.9 [facility] International normalized rat io (INR) calculationOrdered By: Josafat Simon on 04-29-2025 INR Coag (Bld) [Relative time] 3.1 {INR} [facility] Prothrombin Time w/INRon INR Coag (PPP) [Relative time] 3.1 {INR} Normal [facility] Comment on above: Performed By: #### L 300.3900 #### [facility] [address] [place], [place], [phone] Prothrombin timeOrdered By: Josafat Simon on 04-29-2025 PT Coag (PPP) [Time] 32.2 s High 11.7-14.9 [facility] Comment on above: Performed By: #### L 300.3900 #### [facility] [address] [place], [address] International normalized rat io (INR) measurement by fingerstickOrdered By: Josafat Simon on 04-24-2025 INR Coag (BldC) [Relative time] 3.5 [facility] Comment on above: Critical Value > 4.0 Protime w/INR Fingerstickon 04-24-2025 INR Coag (PPP) [Relative time] 3.5 {INR} Normal [facility] Comment on above: Result Comment: Crit ical Value > 4.0 Performed By: #### L 300.3900 #### [facility] [address] [place], [address] Protime Coagsen 35.4 SEC High 11.7-14.9 [facility] Comment on above: Performed By: #### L 300.3900 #### [facility] [address] [place], [address] Whole blood prothrombin time Ordered By: Josafat Simon on 04-24-2025 PT Coag (Bld) [Time] 35.4 s High 11.7-14.9 [facility] Anion gap in Serum or Plasma Ordered By: Bianka Gonzalez on 04-17-2025 Anion gap [Moles/Vol] 10 mmol/L - [facility] BUN/creatinine ratioOrdered By: Bianka Gonzalez on 04-17-2025 Urea nitrogen/Creatinine [Mass ratio] 21.1 mg/mg High 08-04 [facility] Basic Metabolic Profile (BMP )on 04-17-2025 BUN/CRE 21.1 RATIO High 08-04 [facility] Comment on above: Order Comment: 213 Performed By: #### L 300.3900, L100.0500, L500.2500 #### [facility] [address] [place], [address] Calcium [Mass/Vol] 8.2 mg/dL Normal 7.6-11.0 [facility] Comment on above: Order Comment: 213 Performed By: #### L 300.3900, L100.0500, L500.2500 #### [facility] [address] [place], [address] Chloride [Moles/Vol] 111 mmol/L High 98-108 [facility] Comment on above: Order Comment: 213 Performed By: #### L 300.3900, L100.0500, L500.2500 #### [facility] [address] [place], [address] CO2 [Moles/Vol] 17.2 mmol/L Low 21.0-32.0 [facility] Comment on above: Order Comment: 213 Performed By: #### L 300.3900, L100.0500, L500.2500 #### [facility] [address] [place], [address] Creatinine [Mass/Vol] 2.45 mg/dL High 0.70-1.20 [facility] Comment on above: Order Comment: 213 Performed By: #### L 300.3900, L100.0500, L500.2500 #### [facility] [address] [place], [address] GAP 10 Normal 5-15 [facility] Comment on above: Order Comment: 213 Performed By: #### L 300.3900, L100.0500, L500.2500 #### [facility] [address] [place], [address] GFR/1.73 sq M.predicted among non-blacks MDRD (S/P/Bld) [Vol rate/Area] 26 mL/min/{1.73_m2} Low >60 [facility] Comment on above: Order Comment: 213 Result Comment: mL/m in/1.73m2 CKD-EPI Creatinine Equation (2020) Performed By: #### L 300.3900, L100.0500, L500.2500 #### [facility] [address] [place], [address] Glucose [Mass/Vol] 137 mg/dL High 70-99 [facility] Comment on above: Order Comment: 213 Performed By: #### L 300.3900, L100.0500, L500.2500 #### [facility] [address] [place], [address] Potassium [Moles/Vol] 4.9 mmol/L Normal 3.3-5.1 [facility] Comment on above: Order Comment: 213 Performed By: #### L 300.3900, L100.0500, L500.2500 #### [facility] [address] [place], [address] Sodium [Moles/Vol] 139 mmol/L Normal 133-145 [facility] Comment on above: Order Comment: 213 Performed By: #### L 300.3900, L100.0500, L500.2500 #### [facility] [address] [place], [address] Urea nitrogen [Mass/Vol] 52 mg/dL High 4-19 [facility] Comment on above: Order Comment: 213 Performed By: #### L 300.3900, L100.0500, L500.2500 #### [facility] [address] [place], [address] CBC-Complete Blood Cnt No Di ffon 04-17-2025 Erythrocyte distribution width (RBC) [Ratio] 16.4 % High 11.6-14.6 [facility] Comment on above: Order Comment: 213 Performed By: #### L 300.3900, L100.0500, L500.2500 #### [facility] [address] [place], [address] Hematocrit (Bld) [Volume fraction] 35.2 % Low 40-54 [facility] Comment on above: Order Comment: 213 Performed By: #### L 300.3900, L100.0500, L500.2500 #### [facility] [address] [place], [address] Hemoglobin (Bld) [Mass/Vol] 10.6 g/dL Low 13.0-16.5 [facility] Comment on above: Order Comment: 213 Performed By: #### L 300.3900, L100.0500, L500.2500 #### [facility] [address] [place], [address] MCH (RBC) [Entitic mass] 29.2 pg Normal 27.0-32.0 [facility] Comment on above: Order Comment: 213 Performed By: #### L 300.3900, L100.0500, L500.2500 #### [facility] [address] [place], [address] MCHC (RBC) [Mass/Vol] 30.1 g/dL Low 32-36 [facility] Comment on above: Order Comment: 213 Performed By: #### L 300.3900, L100.0500, L500.2500 #### [facility] [address] [place], [address] MCV (RBC) [Entitic vol] 97.0 fL High 80-[address] [facility] Comment on above: Order Comment: 213 Performed By: #### L 300.3900, L100.0500, L500.2500 #### [facility] [address] [place], [address] Platelet mean volume (Bld) [Entitic vol] 10.0 fL Normal 6.2-12.0 [facility] Comment on above: Order Comment: 213 Performed By: #### L 300.3900, L100.0500, L500.2500 #### [facility] [address] [place], [address] Platelets (Bld) [#/Vol] 161 10*3/uL Normal 150-450 [facility] Comment on above: Order Comment: 213 Performed By: #### L 300.3900, L100.0500, L500.2500 #### [facility] [address] [place], [address] RBC (Bld) [#/Vol] 3.63 10*6/uL Low 4.6-6.2 [facility] Comment on above: Order Comment: 213 Performed By: #### L 300.3900, L100.0500, L500.2500 #### [facility] [address] [place], [address] RDW SD 58.6 fl High 35.1-43.9 [facility] Comment on above: Order Comment: 213 Performed By: #### L 300.3900, L100.0500, L500.2500 #### [facility] [address] [place], [address] WBC (Bld) [#/Vol] 7.2 10*3/uL Normal 4.4-11.0 [facility] Comment on above: Order Comment: 213 Performed By: #### L 300.3900, L100.0500, L500.2500 #### [facility] [address] [place], [address] Carbon dioxide, total [Moles /volume] in Central venous bloodOrdered By: Bianka Gonzalez on 04-17-2025 CO2 [Moles/Vol] 17.2 mmol/L Low 21.0-32.0 [facility] Chloride assayOrdered By: Josr Gonzalez on 04-17-2025 Chloride [Moles/Vol] 111 mmol/L High 98-108 [facility] Erythrocyte distribution wid th ratioOrdered By: Bianka Gonzalez on 04-17-2025 Erythrocyte distribution width (RBC) [Ratio] 16.4 % High 11.6-14.6 [facility] Erythrocyte distribution wid th standard deviationOrdered By: Bianka Gonzalez on 04-17-2025 Erythrocyte distribution width (RBC) [Ratio] 58.6 fl High 35.1-43.9 [facility] Glomerular filtration rate ( GFR) estimation/1.73 sq m using serum, plasma, or whole bOrdered By: Bianka Gonzalez on 04-17-2025 GFR/1.73 sq M.predicted among non-blacks MDRD (S/P/Bld) [Vol rate/Area] 26 mL/min/{1.73_m2} Low >60 [facility] Comment on above: mL/min/1.73m2 CKD-EP I Creatinine Equation (2020) Hematocrit Auto (Bld) [Volum e fraction]Ordered By: Bianka Gonzalez on 04-17-2025 Hematocrit (Bld) [Volume fraction] 35.2 % Low 40-54 [facility] Hemoglobin measurementOrdere d By: Bianka Gonzalez on 04-17-2025 Hemoglobin (Bld) [Mass/Vol] 10.6 g/dL Low 13.0-16.5 [facility] International normalized rat io (INR) calculationOrdered By: Bianka Gonzalez on 04-17-2025 INR Coag (Bld) [Relative time] 2.7 {INR} [facility] MCV (mean corpuscular volume ) determinationOrdered By: Bianka Gonzalez on 04-17-2025 MCV (RBC) [Entitic vol] 97.0 fL High 80-[address] [facility] Mean corpuscular hemoglobin (MCH) determinationOrdered By: Bianka Gonzalez on 04-17-2025 MCH (RBC) [Entitic mass] 29.2 pg 27.0-32.0 [facility] Mean corpuscular hemoglobin concentration (MCHC) determinationOrdered By: Bianka Gonzalez on 04-17-2025 MCHC (RBC) [Mass/Vol] 30.1 g/dL Low 32-36 [facility] Mean platelet volume determi nationOrdered By: Bianka Gonzalez on 04-17-2025 Platelet mean volume (Bld) [Entitic vol] 10.0 fL 6.2-12.0 [facility] Platelet countOrdered By: Josr Gonzalez on 04-17-2025 Platelets (Bld) [#/Vol] 161 10*3/uL 150-450 [facility] Potassium measurement (mass/ volume)Ordered By: Bianka Gonzalez on 04-17-2025 Potassium (Unsp spec) [Mass/Vol] 4.9 mmol/L 3.3-5.1 [facility] Prothrombin Time w/INRon INR Coag (PPP) [Relative time] 2.7 {INR} Normal [facility] Comment on above: Order Comment: 213 Performed By: #### L 300.3900, L100.0500, L500.2500 #### [facility] [address] [place], [address] PT Coag (PPP) [Time] 29.7 s High 11.7-14.9 [facility] Comment on above: Order Comment: 213 Performed By: #### L 300.3900, L100.0500, L500.2500 #### [facility] [address] [place], [address] Prothrombin timeOrdered By: Bianka Gonzalez on 04-17-2025 PT Coag (PPP) [Time] 29.7 s High 11.7-14.9 [facility] RBC Auto (Bld) [#/Vol]Ordere d By: Bianka Gonzalez on 04-17-2025 RBC (Bld) [#/Vol] 3.63 10*6/uL Low 4.6-6.2 [facility] Serum creatinine measurement (mass/volume)Ordered By: Bianka Gonzalez on 04-17-2025 Creatinine [Mass/Vol] 2.45 mg/dL High 0.70-1.20 [facility] Serum glucose measurement (m ass/volume)Ordered By: Bianka Gonzalez on 04-17-2025 Glucose [Mass/Vol] 137 mg/dL High 70-99 [facility] Serum or plasma calcium cornelius urement (mass/volume)Ordered By: Bianka Gonzalez on 04-17-2025 Calcium [Mass/Vol] 8.2 mg/dL 7.6-11.0 [facility] Serum or plasma urea nitroge n measurement (mass/volume)Ordered By: Bianka Gonzalez on 04-17-2025 Urea nitrogen [Mass/Vol] 52 mg/dL High 4-19 [facility] Sodium levelOrdered By: Nestor Gonzalez on 04-17-2025 Sodium [Moles/Vol] 139 mmol/L 133-145 [facility] White blood cell (WBC) count Ordered By: Bianka Gonzalez on 04-17-2025 WBC (Bld) [#/Vol] 7.2 10*3/uL 4.4-11.0 [facility] CNPNon 04-15-2025 CNPN Telephone (MIGUELMTE) -------- CAL MITCHELL ([id number]) 1945 M Date Time Provider Department 04/15/25 [place] During your visit today, we recorded the following information about you: Twin Cole [facility] 04/15/2025 9:12 AM Signed [facility] Anticoagulation Clinic Anticoagulation Episode Summary Anticoagulation Care Providers Provider Role Specialty Phone number Guanakito Reno MD [facility] Family Medicine [phone] Cal Mitchell is a 79 year old [...] Pharmacy Anticoagulation Clinic [facility] Pager: [phone]. Twin Cole RPh 04/29/2025 8:54 AM Signed [...] on an injectable anticoagulant - No Twin Vinicionicole bobbi Cole TwinStuart 05/06/2025 10:59 AM Signed Spoke to patient's daughter. Patient has moved to [facility]. His INRs are monitored there. Will discharge patient from [facility] Daniel (VersionOne)Ashley 05/06/2025 2:31 PM Signed Pharmacy Anticoagulation Clinic Discharge completed at this time. Patient may be re-referred, if deemed appropriate. Ashley Sanchez; Ubaldo (VersionOne) [facility] Allergies As of Date: [...] guidelines link (more content not included)... [facility] CAL MITCHELL ([id number]) 1945 M Date Time Provider Department 04/14/25 GUANAKITO RENO [facility] During your visit today, we recorded the following information about you: Jonelle Wroley LPN 04/14/2025 12:59 PM Signed Patient son [...] Fully Assessed Reason for Visit: Patient Question [9967] Prescriptions as of 04/14/2025 - warfarin (COUMADIN) [...] Insulin: No - Lancets (ONE TOUCH DELICA) [facility] lancets Test blood sugar(s) one [...] stenosis of unspecified carotid a*10/25/2013 03/26/2024 Frequency [[id number]] 02/11/2016 03/26/2024 BPH (benign prostatic hypertrophy) with [...] 05/03/2024 Bilateral (more content not included)... Normal [facility] CNPNon 03-28-2025 [facility] -------- CAL MITCHELL ([id number]) 1945 M Date Time Provider Department 03/28/25 GUANAKITO RENO [facility] During your visit today, we recorded the following information about you: Niels Rodriges RN 03/28/2025 1:06 PM Signed Faxed recent ov notes to [facility] per daughter, January request. . January reports she talked to [facility] about patient going to live there and [facility] instructed her to have pcp office send an H AND P to them for review. 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 [Z79.*02/04/2020 Dementia, vascular, [...] Encounter Status:Closed by Niels RODRIGES on 03/28/25 [facility] Molly 03-24-2025 LUCIO Telephone (PHAMIE) -------- CAL MITCHELL ([id number]) 1945 M Date Time Provider Department 03/24/25 ALEJANDRO MOLINA During your visit today, we recorded the following information about you: Alejandro Molina RPh 03/24/2025 10:57 AM Signed [facility]tico[facility] Anticoagulation Episode Summary Anticoagulation Care Providers Provider Role Specialty Phone number Guanakito Reno MD [facility] [phone] Cal Mitchell is a 79 year old [...] instructed to call [facility] at [phone] with any questions or concerns. Alejandro Molina RPh Clinical Pharmacist, Pharmacy Anticoagulation Clinic Pharmacy [facility]tico[facility] Clinic Pager: [phone] Alejandro Molina RPh 04/07/2025 3:31 PM Signed [...] diabetes mellitu (more content not included)... Normal [facility] Inital Evaluation (1) - PTon 03-24-2025 Inital Evaluation (1) - PT [facility] Physical Therapy [facility] [address] [place] [address] [address] [place] [address] / REHABILITATION SERVICES INITIAL EVALUATION MR#: [id number] Acct: [id number] Name: CAL MITCHELL Rep #: [id number] : 1945 79 From: Rosa Gates DPT Referring Dr.: Dr. Josafat García MD Status: R EG RCR Insurance: [facility] [id number] SELF PAY INSURANCE Patient's Visit Information Visit [...] PROM due to guarding. 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 For Medicare only, by signing this I certify the plan of care. Please let me know if there are questions or concerns regarding this plan of care. Physician Signature: Date: ____ 03/24/25 1256 CC: Dr. Josafat García MD; Dr. Guanakito Reno MD E (more content not included)... Normal [facility] Orthopedic Visit Reporton Orthopedic Visit Report [facility] [address] [place] [address] [address] [place] [address] OFFICE VISIT Date of Service: 03/07/25 MR#: [id number] Acct: [id number] Name: CAL MITCHELL Rep #: [id number] : 1945 Provider: Dr. Josafat murcia MD Age/Sex: 79/M Location: [facility] Status: Signed Intake Vital Signs [...] you fallen in the past year?: Yes [facility] Medical History (Updated 03/07/25 @ 13:23 [...] by me, Dr. Josafat García MD 03/07/25 0937. Part of today???s visit was documented by [ ], acting as scribe. CAL MITCHELL is a 79 year old M here today for R proximal humerus fracture. Patient fell 2 days ago. He lives at home. He is here today with his son and vurbqopm-vu-hww. Usually ambulates with a walker or a cane. Had a fall. Was mainly complaining about pain to the upper extremity was seen in a peripheral hospital referred here given a sling they found approximately wrist fracture on the right side. The patient does not speak very much but he converses overall well he is uvrhy-lrop-taklkpen fairly stoic. Supplemental Info Proximal humerus fracture [...] a r (more content not included)... Normal [facility] CNOVon 03-06-2025 CN Office Visit (FAMPWS ) -------- PAULACAL ([id number]) 1945 M Date Time Provider Department 03/06/25 3:20 PM [facility] During your visit today, we recorded the following information about you: Pulse Blood pressure 68/minute 124/58 Carolina Landeros APRN.CAR SHAKEOUT OPERATOR 03/06/2025 4:30 PM Signed This is a [...] and 9-10/10 with movement. - Currently taking [place] for pain management. - Denies pain elsewhere [...] 250.00. Insulin: No Lancets (ONE TOUCH DELICA) [facility] lancets Test blood sugar(s) one [...] SYSTEMS Mu (more content not included)... Normal [facility] ED NOTEon 03-06-2025 ED NOTE HNO ID: [id number] Author: JACK HOLCOMB RN Service: ? Author Type: Registered Nurse Type: ED Notes Filed: 03/06/2025 00:19 Note Text: Provided meds. Placed in sling. Assisted to bathroom and back Normal [facility] ED PROV NOTEon 03-06-2025 ED PROV NOTE HNO ID: [id number] Author: KEDAR HERNANDEZ MD Service: Emergency Medicine [...] p (more content not included)... Normal [facility] CT BRAIN WO IVCONon 03-05-20 CT BRAIN WO IVCON * * *Final Report* * * DATE OF EXAM: Mar 05 2025 11:55PM [facility] 0504 - CT BRAIN WO IVCON / [...] wall calcifications, including in the left-sided carotid. Motion Picture Actor (topogram) images: Known (in correlation to earlier [...] vertebrae with counting from the craniocervical junction. Human Services Assistant: PSCAmirah Transcribe Date/Time: Mar 06 2025 12:48A Dictated by : CAMELIA GROVES MD This examination was interpreted and the report reviewed and electronically signed by: CAMELIA GROVES MD on Mar 06 2025 1:08AM EST [id number] Normal [facility] CT CERVICAL SPINE WO IVCONon 03-05-2025 CT CERVICAL SPINE WO IVCON * * *Final Report* * * DATE OF EXAM: Mar 05 2025 11:55PM [facility] 0505 - CT CERVICAL SPINE WO IVCON [...] wall calcifications, including in the left-sided carotid. Motion Picture Actor (topogram) images: Known (in correlation to earlier [...] vertebrae with counting from the craniocervical junction. Human Services Assistant: PSCB Transcribe Date/Time: Mar 06 2025 12:48A Dictated by : CAMELIA GROVES MD This examination was interpreted and the report reviewed and electronically signed by: CAMELIA GROVES MD on Mar 06 2025 1:08AM EST [id number] Normal [facility] ED NOTEon 03-05-2025 ED NOTE HNO ID: [id number] Author: JACK HOLCOMB, RN Service: ? Author Type: Registered Nurse Type: ED Notes Filed: 03/05/2025 23:05 Note Text: Assisted to bathroom and back Normal [facility] ED NOTE HNO ID: [id number] Author: JACK HOLCOBM, RN Service: ? Author Type: Registered Nurse Type: ED Notes Filed: 03/05/2025 22:10 Note Text: Pt c/o fall with right shoulder injury when wheel chair turned over. Denies neck and head injury. Reliance, warm, dry. No apparent distress. Alert and oriented. Normal [facility] XR HUMERUS 2V AP/LAT RTon [...] separation. No dislocation of the glenohumeral joint. Human Services Assistant: PSCB Transcribe Date/Time: Mar 06 2025 12:37A Dictated by : LINNEA DIAS MD This examination was interpreted and the report reviewed and electronically signed by: LINNEA DIAS MD on Mar 06 2025 12:40AM EST [id number] Normal [facility] XR SHLDR >/=3V AP/JR AP/OTH [...] separation. No dislocation of the glenohumeral joint. Human Services Assistant: PSCB Transcribe Date/Time: Mar 06 2025 12:37A Dictated by : LINNEA DIAS MD This examination was interpreted and the report reviewed and electronically signed by: LINNEA DIAS MD on Mar 06 2025 12:40AM EST [id number] [facility] 02-20-2025 CNPN Telephone (PHAMTE) -------- CAL MITCHELL ([id number]) 1945 M Date Time Provider Department 02/20/25 JIMMY CARRIZALES During your visit today, we recorded the following information about you: [facility] 02/20/2025 9:00 AM Signed [facility] Ambulatory Pharmacy Anticoagulation Clinic Anticoagulation Episode Summary Anticoagulation Care Providers Provider Role Specialty Phone number Guanakito Reno MD [facility] Family Medicine [phone] Cal Mitchell is a 79 year old [...] missed any doses of warfarin. Jimmy Carrizales [facility] Clinical Pharmacist, Pharmacy Anticoagulation Clinic Pharmacy Anticoagulation Clinic Pager: [phone]. Twin Cole RP 03/06/2025 12:38 PM Signed Patient was due [...] an injectable anticoagulant - No Twin Cole, [facility] Jmimy Carrizales [facility] 03/13/2025 7:40 AM Signed Cal Lua Paula was sent eedenhart message and reminded to test INR today or as soon as possible. Jimmy Carrizales [facility] Alejandro Molina [facility] 03/20/2025 3:45 PM Signed No INR has been received or is in process at this time, will add to discharge list and start the discharge process at this time. Alejandro Molina [facility] Daniel (Automotive Machinist Apprentice)Ashley 03/24/2025 10:52 AM Signed No return call from patient. Letter sent. FINAL ATTEMPT letter sent at this time. If no response from patient within 3 weeks of letter being sent, patient will be discharged from PAC at that time. Will also route to referring MD as FYI and to see if office can assist in reaching patient. 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 Normal [facility] CNPNon 01-31-2025 CNPN Telephone (PHAMTE) -------- CAL MITCHELL ([id number]) 1945 M Date Time Provider Department 01/31/25 KAMRAN AYON During your visit today, we recorded the following information about you: Kamran Ayon [facility] 01/31/2025 12:55 PM Signed [facility] Ambulatory Pharmacy Anticoagulation Clinic Anticoagulation Episode Summary Anticoagulation Care Providers Provider Role Specialty Phone number Guanakito Reno MD [facility] Family Medicine [phone] Cal Mitchell is a 79 year old [...] ALLERGIES No Known Allergies Indication for Warfarin: 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 Kamran Ayon [facility] Clinical Pharmacist, Pharmacy Anticoagulation Clinic Pharmacy Anticoagulation Clinic Pager: [phone]. Kamran Ayon RPh 02/14/2025 9:53 AM Signed [...] (NITROQUICK) 0.4 (more content not included)... Normal [facility] CBC W Auto Differential pane l (Bld)on 01-21-2025 Basophils (Bld) [#/Vol] 0.07 10*3/uL Normal <0.11 [facility] Comment on above: Order Comment: Speci men Type: BLOOD SPECIMENOrdering Facility: [facility] Address: [address] [place] [address] Performed By: #### 5 7021-8 ####[facility] LABCLIA [id number] [address] [address] [place] Basophils/100 WBC (Bld) 0.9 % Normal [facility] Comment on above: Order Comment: Speci men Type: BLOOD SPECIMENOrdering Facility: [facility] Address: [address] [place] [address] Performed By: #### 5 7021-8 ####[facility] LABCLIA [id number] [place] [address] [place] Differential cell count method Nom (Bld) Auto Normal [facility] Comment on above: Order Comment: Speci men Type: BLOOD SPECIMENOrdering Facility: [facility] Address: [address] [place] [address] Performed By: #### 5 7021-8 ####[facility] LABCLIA [id number] [place] [address] [place] Eosinophils (Bld) [#/Vol] 0.25 10*3/uL Normal <0.46 [facility] Comment on above: Order Comment: Speci men Type: BLOOD SPECIMENOrdering Facility: [facility] Address: [address] [place] [address] Performed By: #### 5 7021-8 ####[facility] LABCLIA [id number] [place] [id number] [place] Eosinophils/100 WBC (Bld) 3.3 % Normal [facility] Comment on above: Order Comment: Speci men Type: BLOOD SPECIMENOrdering Facility: [facility] Address: [address] [place] [address] Performed By: #### 5 7021-8 ####[facility] LABCLIA [id number] [place] [address] [place] Erythrocyte distribution width (RBC) [Ratio] 14.8 % Normal 11.5-15.0 [facility] Comment on above: Order Comment: Speci men Type: BLOOD SPECIMENOrdering Facility: [facility] Address: [address] [place] [address] Performed By: #### 5 7021-8 ####[facility] LABIA [id number] [place] [address] [place] Hematocrit (Bld) [Volume fraction] 41.2 % Normal 39.0-51.0 [facility] Comment on above: Order Comment: Speci men Type: BLOOD SPECIMENOrdering Facility: [facility] Address: [address] [place] [address] Performed By: #### 5 7021-8 ####[facility] LABIA [id number] [place] [address] [place] Hemoglobin (Bld) [Mass/Vol] 12.5 g/dL Low 13.0-17.0 [facility] Comment on above: Order Comment: Speci men Type: BLOOD SPECIMENOrdering Facility: [facility] Address: [address] [place] [address] Performed By: #### 5 7021-8 ####[facility] LABIA [id number] [place] [address] [place] Immature granulocytes (Bld) [#/Vol] 10*3/uL Normal <0.10 [facility] Comment on above: Order Comment: Speci men Type: BLOOD SPECIMENOrdering Facility: [facility] Address: [address] [place] [address] Performed By: #### 5 7021-8 ####[facility] LABIA [id number] [place] [id number] [place] Immature granulocytes/100 WBC (Bld) 0.3 % Normal [facility] Comment on above: Order Comment: Speci men Type: BLOOD SPECIMENOrdering Facility: [facility] Address: [address] [place] [address] Performed By: #### 5 7021-8 ####[facility] LABCLIA [id number] [place] [address] [place] Lymphocytes (Bld) [#/Vol] 1.28 10*3/uL Normal 1.00-4.00 [facility] Comment on above: Order Comment: Speci men Type: BLOOD SPECIMENOrdering Facility: [facility] Address: [address] [place] [address] Performed By: #### 5 7021-8 ####[facility] LABIA [id number] [place] [address] [place] Lymphocytes/100 WBC (Bld) 17.1 % Normal [facility] Comment on above: Order Comment: Speci men Type: BLOOD SPECIMENOrdering Facility: [facility] Address: [address] [place] [address] Performed By: #### 5 7021-8 ####[facility] LABIA [id number] [place] [address] [place] MCH (RBC) [Entitic mass] 29.3 pg Normal 26.0-34.0 [facility] Comment on above: Order Comment: Speci men Type: BLOOD SPECIMENOrdering Facility: [facility] Address: [address] [place] [address] Performed By: #### 5 7021-8 ####[facility] LABIA [id number] [place] [id number] [place] MCHC (RBC) [Mass/Vol] 30.3 g/dL Low 30.5-36.0 [facility] Comment on above: Order Comment: Speci men Type: BLOOD SPECIMENOrdering Facility: [facility] Address: [address] [place] [address] Performed By: #### 5 7021-8 ####[facility] LABCLIA [id number] [place] [address] [place] MCV (RBC) [Entitic vol] 96.7 fL Normal 80.0-100.0 [facility] Comment on above: Order Comment: Speci men Type: BLOOD SPECIMENOrdering Facility: [facility] Address: [address] [place] [address] Performed By: #### 5 7021-8 ####[facility] LABCLIA [id number] [place] [address] [place] Monocytes (Bld) [#/Vol] 0.61 10*3/uL Normal <0.87 [facility] Comment on above: Order Comment: Speci men Type: BLOOD SPECIMENOrdering Facility: [facility] Address: [address] [place] [address] Performed By: #### 5 7021-8 ####[facility] LABIA [id number] [place] [address] [place] Monocytes/100 WBC (Bld) 8.2 % Normal C [facility] Comment on above: Order Comment: Speci men Type: BLOOD SPECIMENOrdering Facility: [facility] Address: [address] [place] [address] Performed By: #### 5 7021-8 ####[facility] LABIA [id number] [place] [address] [place] Neutrophils (Bld) [#/Vol] 5.25 10*3/uL Normal 1.45-7.50 [facility] Comment on above: Order Comment: Speci men Type: BLOOD SPECIMENOrdering Facility: [facility] Address: [address] [place] [address] Performed By: #### 5 7021-8 ####[facility] LABIA [id number] [place] [address] [place] Neutrophils/100 WBC (Bld) 70.2 % Normal [facility] Comment on above: Order Comment: Speci men Type: BLOOD SPECIMENOrdering Facility: [facility] Address: [address] [place] [address] Performed By: #### 5 7021-8 ####[facility] LABCLIA [id number] [address] [place] [address] [place] Nucleated RBC (Bld) [#/Vol] 10*3/uL Normal <0.01 [facility] Comment on above: Order Comment: Speci men Type: BLOOD SPECIMENOrdering Facility: [facility] Address: [address] [place] [address] Performed By: #### 5 7021-8 ####[facility] LABIA [id number] [address], [facility]95 [place] Nucleated RBC/100 WBC (Bld) [Ratio] 0.0 /100 WBC Normal [facility] Comment on above: Order Comment: Speci men Type: BLOOD SPECIMENOrdering Facility: [facility] Address: [address] [place] [address] Performed By: #### 5 7021-8 ####[facility] LABIA [id number] [place] [id number] [place] Platelet mean volume (Bld) [Entitic vol] 10.3 fL Normal 9.0-12.7 [facility] Comment on above: Order Comment: Speci men Type: BLOOD SPECIMENOrdering Facility: [facility] Address: [address] [place] [address] Performed By: #### 5 7021-8 ####[facility] LABIA [id number] [place] [id number] [place] Platelets (Bld) [#/Vol] 198 10*3/uL Normal 150-400 [facility] Comment on above: Order Comment: Speci men Type: BLOOD SPECIMENOrdering Facility: [facility] Address: [address] [place] [address] Performed By: #### 5 7021-8 ####[facility] LABCLIA [id number] [place] [id number] [place] RBC (Bld) [#/Vol] 4.26 10*6/uL Normal 4.20-6.00 [facility] Comment on above: Order Comment: Speci men Type: BLOOD SPECIMENOrdering Facility: [facility] Address: [address] [place] [address] Performed By: #### 5 7021-8 ####[facility] LABCLIA [id number] [place] [id number] [place] [facility] [place] WBC (Bld) [#/Vol] 7.48 10*3/uL Normal 3.70-11.00 [facility] Comment on above: Order Comment: Speci men Type: BLOOD SPECIMENOrdering Facility: [facility] Address: [address] [place] [address] Performed By: #### 5 7021-8 ####[facility] LABIA [id number] [address] OF [facility] CNOVon 01-21-2025 CNOV Office Visit (FAMPWS ) -------- CAL MITCHELL ([id number]) 1945 M Date Time Provider Department 01/21/25 3:40 PM CAROLINA LANDEROS FAMPWS During your visit today, we recorded the following information about you: Temperature Pulse Blood pressure Weight 97.6 degrees 59/minute 122/60 117 kg Carolina Landeros, PAPER SORTER.CAR SHAKEOUT OPERATOR 01/21/2025 4:11 PM Signed This is a [...] taking lisinopril Monitors bp at home: Yes. [place] checks it, ok there Denies side effects: [...] pain,every 5 min x3 blood sugar diagnostic (GlobitelTOUCH ULTRA TEST) test strip Test blood sugar(s) [...] (20.0 ttl (more content not included)... Normal [facility] metabolic 2000 panelon 01-21-2025 Albumin [Mass/Vol] 4.1 g/dL Normal 3.9-4.9 [facility] Comment on above: Order Comment: Speci men Type: BLOOD SPECIMENOrdering Facility: [facility] Address: [address] [place] [address] Performed By: #### 2 132-9, 34416-1, 09017-3, LIPNF ####[facility] LABCLIA [id number] [place] [address] [place] ALP [Catalytic activity/Vol] 153 U/L High 38-113 [facility] Comment on above: Order Comment: Speci men Type: BLOOD SPECIMENOrdering Facility: [facility] Address: [address] [place] [address] Performed By: #### 2 132-9, 23831-3, 07816-6, LIPNF ####[facility] LABCLIA [id number] [place] [address] [place] ALT [Catalytic activity/Vol] 19 U/L Normal 10-54 [facility] Comment on above: Order Comment: Speci men Type: BLOOD SPECIMENOrdering Facility: [facility] Address: [address] [place] [address] Performed By: #### 2 132-9, 24470-0, 55186-0, LIPNF ####[facility] LABCLIA [id number] [place] [address] [place] Anion gap [Moles/Vol] 15 mmol/L Normal 8-15 [facility] Comment on above: Order Comment: Speci men Type: BLOOD SPECIMENOrdering Facility: [facility] Address: [address] [place] [address] Performed By: #### 2 132-9, 29359-5, 44182-1, LIPNF ####[facility] LABCLIA [id number] [place] [id number] [place] AST [Catalytic activity/Vol] 23 U/L Normal 14-40 [facility] Comment on above: Order Comment: Speci men Type: BLOOD SPECIMENOrdering Facility: [facility] Address: [address] [place] [address] Performed By: #### 2 132-9, 27750-8, 20557-6, LIPNF ####[facility] LABCLIA [id number] [place] [id number] [place] Bilirubin [Mass/Vol] 0.6 mg/dL Normal 0.2-1.3 [facility] Comment on above: Order Comment: Speci men Type: BLOOD SPECIMENOrdering Facility: [facility] Address: [address] [place] [address] Performed By: #### 2 132-9, 33128-7, , LIPNF ####[facility] LABCLIA [id number] [place] [address] [place] Calcium [Mass/Vol] 8.8 mg/dL Normal 8.5-10.2 [facility] Comment on above: Order Comment: Speci men Type: BLOOD SPECIMENOrdering Facility: [facility] Address: [address] [place] [address] Performed By: #### 2 132-9, 90930-4, , LIPNF ####[facility] LABCLIA [id number] [place] [address] [place] Chloride [Moles/Vol] 106 mmol/L Normal 98-107 [facility] Comment on above: Order Comment: Speci men Type: BLOOD SPECIMENOrdering Facility: [facility] Address: [address] [place] [address] Performed By: #### 2 132-9, 82669-4, 68612-5, LIPNF ####[facility] LABCLIA [id number] [address] [address] [place] CO2 [Moles/Vol] 21 mmol/L Low 22-30 [facility] Comment on above: Order Comment: Speci men Type: BLOOD SPECIMENOrdering Facility: [facility] Address: [address] [place] [address] Performed By: #### 2 132-9, 17579-7, 85678-2, LIPNF ####[facility] LABCLIA [id number] [place] [address] [place] Creatinine [Mass/Vol] 2.34 mg/dL High 0.73-1.22 [facility] Comment on above: Order Comment: Speci men Type: BLOOD SPECIMENOrdering Facility: [facility] Address: [address] [place] [address] Performed By: #### 2 132-9, 08775-6, , LIPNF ####[facility] LABCLIA [id number] [place] [address] [place] Creatinine and Glomerular filtration rate.predicted panel (S/P/Bld) 27 mL/min/1.73m??? Low >=60 [facility] Comment on above: Order Comment: Speci men Type: BLOOD SPECIMENOrdering Facility: [facility] Address: [address] [place] [address] Result Comment: Lina mated Glomerular Filtration Rate [...] actual GFR. Performed By: #### 2 132-9, 35338-2, , LIPNF ####[facility] LABCLIA [id number] [place] [id number] [place] Glucose [Mass/Vol] 122 mg/dL High 74-99 [facility] Comment on above: Order Comment: Speci men Type: BLOOD SPECIMENOrdering Facility: [facility] Address: [address] [place] [id number] Result Comment: The [place] Diabetes Association (ADA) provides guidance for cutoff [...] Standards of Medical Care in Diabetes 2016, [place] Diabetes Association. Diabetes Care. 2016.39(Suppl 1). Performed By: #### 2 132-9, 93772-6, , LIPNF ####[facility] LABCLIA [id number] [place] [address] [place] Potassium [Moles/Vol] 4.3 mmol/L Normal 3.7-5.1 [facility] Comment on above: Order Comment: Speci men Type: BLOOD SPECIMENOrdering Facility: [facility] Address: [address] [place] [address] Performed By: #### 2 132-9, , , LIPNF ####[facility] LABCLIA [id number] [place] [address] [place] Protein [Mass/Vol] 7.2 g/dL Normal 6.3-8.0 [facility] Comment on above: Order Comment: Speci men Type: BLOOD SPECIMENOrdering Facility: [facility] Address: [address] [place] [id number] Performed By: #### 2 132-9, , , LIPNF ####[facility] LABCLIA [id number] [address] [address] [place] Sodium [Moles/Vol] 142 mmol/L Normal 136-144 [facility] Comment on above: Order Comment: Speci men Type: BLOOD SPECIMENOrdering Facility: [facility] Address: [address] [place] [address] Performed By: #### 2 132-9, 79227-4, , LIPNF ####[facility] LABCLIA [id number] [address] [address] [place] Urea nitrogen [Mass/Vol] 29 mg/dL High 9-24 [facility] Comment on above: Order Comment: Marcelle men Type: BLOOD SPECIMENOrdering Facility: [facility] Address: [address] [place] [address] Performed By: #### 2 132-9, 83818-2, , LIPNF ####[facility] LABCLIA [id number] [address] [address] [place] HbA1c (Bld)on 01-21-2025 Average glucose Estimated from glycated hemoglobin (Bld) [Mass/Vol] 146 mg/dL Normal [facility] Comment on above: Order Comment: Marcelle [facility] Type: BLOOD SPECIMENOrdering Facility: [facility] Address: [address] [place] [address] Result Comment: eAG: (Estimated average glucose) is a calculated value from HgbA1c and is promotional representative of the average blood glucose level in the last 2-3 month period. Performed By: #### 5 5454-3 ####[facility] LABIA [id number] [place] [address] [place] HbA1c (Bld) [Mass fraction] 6.7 % High 4.3-5.6 [facility] Comment on above: Order Comment: Marcelle [facility] Type: BLOOD SPECIMENOrdering Facility: [facility] Address: [address] [place] [address] Result Comment: [place] Diabetes Association guidelines indicate that patients with HgbA1c in the range 5.7-6.4% are at increased risk for development of diabetes, and intervention by lifestyle modification may be beneficial. HgbA1c greater or equal to 6.5% is considered diagnostic of diabetes. Performed By: #### 5 5454-3 ####[facility] LABCLIA [id number] [place] [address] [place] LIPID PANEL, NONFASTINGon Cholesterol [Mass/Vol] 164 mg/dL Normal <200 [facility] Comment on above: Order Comment: Speci men Type: BLOOD SPECIMENOrdering Facility: [facility] Address: [address] [place] [address] Result Comment: <200 mg/dL, Desirable 200-239 mg/dL, Borderline high >239 mg/dL, High Performed By: #### 2 132-9, 13091-0, , LIPNF ####[facility] LABCLIA [id number] [address] STATES OF [facility] HDL CHOLESTEROL, NF 42 mg/dL Normal >39 [facility] Comment on above: Order Comment: Speci men Type: BLOOD SPECIMENOrdering Facility: [facility] Address: [address] [place] [address] Result Comment: 40-5 9 mg/dL, Acceptable >59 mg/dL, High: Negative risk factor for coronary heart disease <40 mg/dL, Low: Positive risk factor for coronary heart disease Performed By: #### 2 132-9, 45460-8, , LIPNF ####[facility] LABIA [id number] [address] [place] LDL CHOLESTEROL, NF 96 mg/dL Normal <100 [facility] Comment on above: Order Comment: Speci men Type: BLOOD SPECIMENOrdering Facility: [facility] Address: [address] [place] [address] Result Comment: <100 mg/dL, Optimal 100-129 mg/dL, Near optimal/above optimal 130-159 mg/dL, Borderline high 160-189 mg/dL, High >189 mg/dL, Very high Secondary prevention optimal LDL Cholesterol levels are recommended to be < 70 mg/dL Performed By: #### 2 132-9, 19257-9, 33841-2, LIPNF ####[facility] LABCLIA [id number] [place] [id number] [place] LDL/HDL RATIO, NF 2.29 mg/dL Normal <2.54 [facility] Comment on above: Order Comment: Speci men Type: BLOOD SPECIMENOrdering Facility: [facility] Address: [address] [place] [address] Result Comment: Refe rence: 1. National Cholesterol Education Program ATP III Guideline At-A-Glance Quick Desk Reference: National Heart, Lung, and Blood [place]. National Institutes of Health. 2001: NIH Publication No. 01-3305. 2. An International Atherosclerosis Society position paper: global recommendations for the management of dyslipidemia: executive summary, Atherosclerosis. 2014: 232(2):410-413. Performed By: #### 2 132-9, 09907-4, 47057-3, LIPNF ####[facility] LABIA [id number] [place] [address] [place] NON HDL CHOL, NF 122 mg/dL Normal <130 [facility] Comment on above: Order Comment: Speci men Type: BLOOD SPECIMENOrdering Facility: [facility] Address: [address] [place] [address] Result Comment: <130 mg/dL, Optimal 130-159 mg/dL, Near optimal/above optimal 160-189 mg/dL, Borderline high 190-219 mg/dL, High >219 mg/dL, Very high Secondary prevention optimal non HDL Cholesterol levels are recommended to be <100 mg/dL Performed By: #### 2 132-9, 73612-8, 66473-4, LIPNF ####[facility] LABIA [id number] [place] [id number] [place] T CHOL/HDL RATIO NF 3.90 mg/dL Normal <5.10 [facility] Comment on above: Order Comment: Speci men Type: BLOOD SPECIMENOrdering Facility: [facility] Address: [address] [place] [address] Performed By: #### 2 132-9, 09704-1, 01592-6, LIPNF ####[facility] LABCLIA [id number] [address] [address] [place] TRIGLYCERIDES, NF 129 mg/dL Normal <150 [facility] Comment on above: Order Comment: Speci men Type: BLOOD SPECIMENOrdering Facility: [facility] Address: [address] [place] [address] Result Comment: <150 mg/dL, Normal 150-199 mg/dL, Borderline high 200-499 mg/dL, High >499 mg/dL, Very high Performed By: #### 2 132-9, 57437-7, , LIPNF ####[facility] LABCLIA [id number] [place] [address] [place] VLDL CHOLESTEROL, NF 26 mg/dL Normal <30 [facility] Comment on above: Order Comment: Speci men Type: BLOOD SPECIMENOrdering Facility: [facility] Address: [address] [place] [address] Performed By: #### 2 132-9, 43919-1, , LIPNF ####[facility] LABCLIA [id number] [place] [address] [place] Magnesium SerPl-mCncon 01-21 Magnesium [Mass/Vol] 2.3 mg/dL Normal 1.7-2.3 [facility] Comment on above: Order Comment: Speci men Type: BLOOD SPECIMENOrdering Facility: [facility] Address: [address] [place], [place] [address] Performed By: #### 2 132-9, 55649-4, , LIPNF ####[facility] LABCLIA [id number] [place] [id number] [place] Vit B12 SerPl-mCncon 025 Cobalamin (Vitamin B12) [Mass/Vol] 385 pg/mL Normal 232-1245 [facility] Comment on above: Order Comment: Speci men Type: BLOOD SPECIMENOrdering Facility: [facility] Address: [address] [place] [address] Performed By: #### 2 132-9, 69231-4, 79141-2, LIPNF ####[facility] LABCLIA [id number] [facility]PITALEdward [address] OF [facility] CNPNon 01-08-2025 CNPN Telephone (PHAMTE) -------- CAL MITCHELL ([id number]) 1945 M Date Time Provider Department 01/08/25 RUTHIE CUEVAS During your visit today, we recorded the following information about you: Ruthie Cuevas RPh 01/08/2025 9:14 AM Signed [facility] Anticoagulation Episode Summary Anticoagulation Care Providers Provider Role Specialty Phone number Guanakito Reno MD [facility] Family Medicine [phone] Cal Mitchell is a 79 year old [...] Pharmacy Anticoagulation Clinic Pharmacy Anticoagulation Clinic Pager: [phone]. Ruthie Cuevas RPh 01/29/2025 11:08 AM Addendum Cal Mitchell was called and reminded to test INR today or as soon as possible. LVMX for January. 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 lancets Test blood sugar(s) one time daily. Dx: 250.00. Insulin: No Problem List As Of Date 01/08/2025 (more content not included)... Normal [facility] CAL MITCHELL ([id number]) 1945 M Date Time Provider Department 12/30/24 TWIN COLE During your visit today, we recorded the following information about you: Twin Cole [facility] 12/30/2024 9:14 AM Signed [facility]tico[facility] Anticoagulation Episode Summary Anticoagulation Care Providers Provider Role Specialty Phone number Guanakito Reno MD [facility] Family Medicine [phone] Cal Mitchell is a 79 year old [...] missed any doses of warfarin. Twin Cole [facility] Clinical Pharmacist, Pharmacy Anticoagulation Clinic Pharmacy Anticoagulation Clinic Pager: [phone]. Octavio (Automotive Machinist Apprentice)Ruben 12/30/2024 9:15 AM Signed De called regarding INR result for patient. Result has been addressed below, no further action needed. Ruben Cunningham, Dye Penetrant Testing Technician (last marker) Pharmacy Anticoagulation Clinic Jimmy Carrizales [facility] 01/07/2025 12:02 PM Signed Cal Mitchell was called, lvmx and reminded to test INR today or as soon as possible given that we left a VM last week also. [facility] All[facility] As of Date: 12/30/2024 (No [...] Insulin: No - Lancets (ONE TOUCH DELICA) [facility] lancets Test blood sugar(s (more content not included)... Normal [facility] 12-11-2024 [facility] Telephone (SANJAYE) -------- CAL MITCHELL ([id number]) 1945 M Date Time Provider Department 12/11/24 JIMMY CARRIZALES During your visit today, we recorded the following information about you: Jimmy Carrizales, [facility] 12/11/2024 9:51 AM Signed [facility]ticoagulation Clinic Anticoagulation Episode Summary Anticoagulation Care Providers Provider Role Specialty Phone number Guanakito Reno MD [facility] [phone] Cal Mitchell is a 79 year old [...] missed any doses of warfarin. Jimmy Carrizales [facility] Clinical Pharmacist, Pharmacy Anticoagulation Clinic Pharmacy Anticoagulation Clinic Pager: [phone]. Ruthie Cuevas RPh 12/25/2024 11:14 AM Signed [...] sugar grey (more content not included)... Normal [facility] CNPNon 11-26-2024 CNPN Telephone (MIGUELMTE) -------- CAL MITCHELL ([id number]) 1945 M Date Time Provider Department 11/26/24 [place] During your visit today, we recorded the following information about you: Twin Cole [facility] 11/26/2024 5:29 PM Signed [facility] Anticoagulation Clinic Anticoagulation Episode Summary Anticoagulation Care Providers Provider Role Specialty Phone number Guanakito Reno MD [facility] Family Medicine [phone] Cal Hageroll is a 79 year old [...] missed any doses of warfarin. Twin Cole [facility] Clinical Pharmacist, Pharmacy Anticoagulation Clinic Pharmacy Anticoagulation Clinic Pager: [phone]. Yamlika Heath RN 11/27/2024 8:43 AM Signed Chris Ruggiero left a VM regarding the patient's INR result on 11/26/2024. Noted result has been addressed below. BENJIE Cardenas Kim [facility] 12/10/2024 10:31 AM Signed Cal Mitchell was called and reminded to test INR today or as soon as possible. Left VM on Elly's number. Twin Kelsey [facility] Allergies As of Date: 11/26/2024 (No Known [...] Problem Lis (more content not included)... Normal [facility] CNPNon 10-28-2024 CNPN Telephone (PHAMTE) -------- CAL MITCHELL ([id number]) 1945 M Date Time Provider Department 10/28/24 ALEJANDRO MOLINA During your visit today, we recorded the following information about you: Alejandro Molina RPh 10/28/2024 5:07 PM Signed [facility] Ambulatory Pharmacy Anticoagulation Clinic Anticoagulation Episode Summary Anticoagulation Care Providers Provider Role Specialty Phone number Guanakito Reno MD [facility] [phone] Cal Mitchell is a 79 year old [...] instructed to call Pharmaceutical Anticoagulation [facility] at [phone] with any questions or concerns. Alejandro Molina [facility] Clinical Pharmacist, Pharmacy Anticoagulation Clinic Pharmacy Anticoagulation Clinic Pager: [phone] Alejandro Molina [facility] 11/11/2024 4:42 PM Signed Patient was due to test INR today. Will continue to monitor for results. Will follow up in one week if no results received. Alejandro Molina [facility] 11/18/2024 4:27 PM Signed Cal Mitchell was called and reminded to test INR today or as soon as possible. Alejandro Molina [facility] Kelsey Twin [facility] 11/25/2024 2:53 PM Signed Added to discharge list Daniel (Automotive Machinist Apprentice)Ashley 11/26/2024 2:43 PM Signed DISCHARGE No return call from patient. Letter sent. FINAL ATTEMPT letter sent at this time. If no response from patient within 4 weeks, patient will be discharged from PAC at that time. Will also route to referring MD as FYI and to see if office can assist in reaching patient. Ashley Sanchez CPhT (Dye Penetrant Testing Technician) Pharmacy Anticoagulation Clinic Guanakito Reno MD [...] Elly and Gustavo. Gave them the pharmacy [facility] phone number and they are [...] babysitter and cannot bring him. CHANCE Ramirez (Automotive Machinist Apprentice)Ashley 11/26/2024 5:07 PM Signed PATIENT CALL Patient [...] received. PAC will await results. Ashley Sanchez ([facility] (more content not included)... Normal [facility] CAL MITCHELL ([id number]) 1945 M Date Time Provider Department 10/21/24 [...] for Visit: Patient Update [1234] Patient Question [0187] Prescriptions as of 10/21/2024 - atorvastatin (LIPITOR) [...] Insulin: No - Lancets (ONE TOUCH DELICA) [facility] lancets Test blood sugar(s) one [...] stenosis of unspecified carotid a*10/25/2013 03/26/2024 Frequency [[id number]] 02/11/2016 03/26/2024 BPH (benign prostatic hypertrophy) with urinary*02/11/2016 Adhesive capsulitis of right shoulder [M75.01] 05/15/2018 Aortic stenosis [I35.0] 05/24/2018 CKD (chronic kidney disease) stage 3, GFR 30-59*05/24/2018 03/26/2024 Lung (more content not included)... Normal [facility] 10-01-2024 CNPN Telephone (PHAMTE) -------- CAL MITCHELL ([id number]) 1945 M Date Time Provider Department 10/01/24 [place] During your visit today, we recorded the following information about you: Twin Cole [facility] 10/01/2024 9:42 AM Signed [facility] Ambulatory Pharmacy Anticoagulation Clinic Anticoagulation Episode Summary Anticoagulation Care Providers Provider Role Specialty Phone number Guanakito Reno MD [facility] Family Medicine [phone] Cal Hageroll is a 79 year old [...] Pharmacy Anticoagulation Clinic Pharmacy Anticoagulation Clinic Pager: [phone]. Twin Cole RPh 10/15/2024 12:10 PM Signed [...] tablet Dissolve (more content not included)... Normal [facility] 08-26-2024 CNPN Telephone (PHAMTE) -------- CAL MITCHELL ([id number]) 1945 M Date Time Provider Department 08/26/24 ALEJANDRO MOLINA During your visit today, we recorded the following information about you: Alejandro Molina RPh 08/26/2024 6:35 AM Signed [facility] Ambulatory Pharmacy Anticoagulation Clinic Anticoagulation Episode Summary Anticoagulation Care Providers Provider Role Specialty Phone number Guanakito Reno MD [facility] Family Medicine [phone] Cal Mitchell is a 79 year old [...] warfarin instructions: 5 mg every day Sent [facility] message Advised patient to continue current weekly dose as noted above Next INR check due on 09/09/2024 Alejandro Molina [facility] Clinical Pharmacist, Pharmacy Anticoagulation Clinic Pharmacy Anticoagulation Clinic Pager: [phone]. Alejandro Molina RPh 09/09/2024 4:38 PM Signed [...] Insulin: No - Lancets (ONE TOUCH DELICA) [facility] lancets Test blood sugar(s) one time daily. Dx: 250.00. Insulin: No Problem List As Of Date 08/26/2024 Noted Resolved Hyperlipidemia, mixed [E78.2] Essential hypertension [I10] Peripheral arterial disease (HCC) [I73.9] Other symptoms involving cardiovascular system * 07/20/2016 ACTINIC KERATOSIS [L57.0] 10/12/2005 IMPACTED CERUMEN [H61.20] (more content not included)... Normal [facility] Molly 08-16-2024 LUCIO Telephone (AGSP) -------- CAL MITCHELL ([id number]) 1945 M Date Time Provider Department 08/16/24 JIMMY STANLEY [facility] During your visit today, we recorded [...] Insulin: No - Lancets (ONE TOUCH DELICA) 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 Normal [facility] ECG B/O W INTERP (MED OFFICE )on 07-10-2024 Sinus rhythm with fi rst degree heart block [facility] US Kidney - bilateral and Ur inary bladderon 05-02-2024 IMPRESSION: No hydronephrosis. Cholelithiasis. Human Services Assistant: MAC Transcribe Date/Time: May 02 2024 7:17P Dictated by : TIN COTTER DO This examination was interpreted and the report reviewed and electronically signed by: TIN COTTER DO on May 02 2024 7:19PM [facility] DIVISION OF RADIOLOGY * * *Final Report* [...] Incidentally noted cholelithiasis. DIVISION OF RADIOLOGY Provider, [facility] Imagva g Hidalgo - 05/02/2024 * * *Final Report* * [...] noted cholelithiasis. IMPRESSION IMPRESSION: No hydronephrosis. Cholelithiasis. Human Services Assistant: PSCB Transcribe Date/Time: May 02 2024 7:17P Dictated by : TIN COTTER DO This examination was interpreted and the report reviewed and electronically signed by: TIN COTTER DO on May 02 2024 7:19PM [facility] Radiology Study observation (narrative) [facility] ino [facility] US Kidney - bilateral and Ur inary bladderOrdered By: Ccf Provider on 05-02-2024 [facility] NT PRO BNPon 03-26-2024 Natriuretic peptide.B prohormone N-Terminal [Mass/Vol] 501 pg/mL High NINF - 450 pg/mL [facility] Natriuretic peptide.B prohor jodie N-Terminal [Mass/Vol]on 03-26-2024 Interpretation and review of laboratory results Abnormal [facility] THYROID STIMULATING HORMONEo n 03-26-2024 TSH Qn 2.950 m[IU]/L [facility] TSH Qnon 03-26-2024 Interpretation and review of laboratory results Normal [facility] CBC panel Auto (Bld)on 03-25 Erythrocyte distribution width (RBC) [Ratio] 14.9 % 11.5 - 15.0 % [facility] Hematocrit (Bld) [Volume fraction] 31.8 % Low 39.0 - 51.0 % [facility] Hemoglobin (Bld) [Mass/Vol] 9.6 g/dL Low 13.0 - 17.0 g/dL [facility] Interpretation and review of laboratory results Abnormal [facility] MCH (RBC) [Entitic mass] 30.9 pg 26.0 - 34.0 pg [facility] MCHC (RBC) [Mass/Vol] 30.2 g/dL Low 30.5 - 36.0 g/dL [facility] MCV (RBC) [Entitic vol] 102.3 fL High 80.0 - 100.0 fL [facility] Nucleated RBC (Bld) [#/Vol] NINF [facility] Platelet mean volume (Bld) [Entitic vol] 9.8 fL 9.0 - 12.7 fL [facility] Platelets (Bld) [#/Vol] 158 10*3/uL [facility] RBC (Bld) [#/Vol] 3.11 10*6/uL Low 4.20 - 6.0 0 m/uL [facility] WBC (Bld) [#/Vol] 4.72 10*3/uL [facility] Comprehensive metabolic 2000 panelOrdered By: Haley Marie on 03-25-2024 Albumin [Mass/Vol] 3.7 g/dL Low 3.9 - 4.9 g/dL [facility] ALP [Catalytic activity/Vol] 109 U/L 38 - 113 U/L [facility] ALT [Catalytic activity/Vol] 15 U/L 10 - 54 U/L [facility] Anion gap [Moles/Vol] 12 mmol/L 8 - 15 mmol/L [facility] AST [Catalytic activity/Vol] 19 U/L 14 - 40 U/L [facility] Bilirubin [Mass/Vol] 0.3 mg/dL 0.2 - 1 .3 mg/dL [facility] Calcium [Mass/Vol] 8.6 mg/dL 8.5 - 10. 2 mg/dL [facility] Chloride [Moles/Vol] 113 mmol/L High 98 - 10 7 mmol/L [facility] CO2 [Moles/Vol] 16 mmol/L Low 22 - 30 mmol/L [facility] Creatinine [Mass/Vol] 2.48 mg/dL High 0.73 - 1.22 mg/dL [facility] GFR/1.73 sq M.predicted among non-blacks MDRD (S/P/Bld) [Vol rate/Area] 26 mL/min/{1.73_m2} Low - PINF [facility] Comment on above: Estimated Glomerular [...] [Mass/Vol] 99 mg/dL 74 - 99 mg/dL [facility] Comment on above: The [place] Diab[employer] Association (ADA) provides guidance for [...] Standards of Medical Care in Diabetes 2016, [place] [employer]. Diabetes Care. 2016.39(Suppl 1). Interpretation and review of laboratory results Abnormal [facility] Potassium [Moles/Vol] 4.4 mmol/L 3.7 - 5.1 mmol/L [facility] Protein [Mass/Vol] 6.4 g/dL 6.3 - 8.0 g/dL [facility] Sodium [Moles/Vol] 141 mmol/L 136 - 144 mmol/L [facility] Urea nitrogen [Mass/Vol] 49 mg/dL High 9 - 24 mg/dL [facility] ALBUMIN/CREAT RATIO RND URon 08-14-2023 Albumin DL <= 20 mg/L (U) [Mass/Vol] 26.7 mg/L [facility] Albumin/Creatinine (U) [Mass ratio] 27 mg/g <30 mg/g [facility] Creatinine (U) [Mass/Vol] 98.9 mg/dL 20.0 - 300.0 mg/dL [facility] CBC W Auto Differential pane l (Bld)on 08-14-2023 Basophils (Bld) [#/Vol] 0.05 10*3/uL <0.11 k/uL [facility] Basophils/100 WBC (Bld) 0.9 % [facility] Differential cell count method Nom (Bld) Auto [facility] Eosinophils (Bld) [#/Vol] 0.44 10*3/uL <0.46 k/uL [facility] Eosinophils/100 WBC (Bld) 8.3 % [facility] Erythrocyte distribution width (RBC) [Ratio] 14.5 % 11.5 - 15.0 % [facility] Hematocrit (Bld) [Volume fraction] 38.6 % Low 39.0 - 51.0 % [facility] Hemoglobin (Bld) [Mass/Vol] 11.7 g/dL Low 13.0 - 17.0 g/dL [facility] Immature granulocytes (Bld) [#/Vol] <0.10 k/uL [facility] Immature granulocytes/100 WBC (Bld) 0.4 % [facility] Lymphocytes (Bld) [#/Vol] 1.18 10*3/uL 1.00 - 4.00 k/uL [facility] Lymphocytes/100 WBC (Bld) 22.1 % [facility] MCH (RBC) [Entitic mass] 31.3 pg 26.0 - 34.0 pg [facility] MCHC (RBC) [Mass/Vol] 30.3 g/dL Low 30.5 - 36.0 g/dL [facility] MCV (RBC) [Entitic vol] 103.2 fL High 80.0 - 100.0 fL [facility] Monocytes (Bld) [#/Vol] 0.42 10*3/uL <0.87 k/uL [facility] Monocytes/100 WBC (Bld) 7.9 % [facility] Neutrophils (Bld) [#/Vol] 3.22 10*3/uL 1.45 - 7.50 k/uL [facility] Neutrophils/100 WBC (Bld) 60.4 % [facility] Nucleated RBC (Bld) [#/Vol] <0.01 k/uL [facility] Nucleated RBC/100 WBC (Bld) [Ratio] 0.0 /100 WBC [facility] Platelet mean volume (Bld) [Entitic vol] 10.5 fL 9.0 - 12.7 fL [facility] Platelets (Bld) [#/Vol] 144 10*3/uL Low 150 - 400 k/uL [facility] RBC (Bld) [#/Vol] 3.74 10*6/uL Low 4.20 - 6.0 0 m/uL [facility] WBC (Bld) [#/Vol] 5.33 10*3/uL 3.70 - 11.00 k/uL [facility] Comprehensive metabolic 2000 panelon 08-14-2023 Albumin [Mass/Vol] 4.1 g/dL 3.9 - 4.9 g/dL [facility] ALP [Catalytic activity/Vol] 111 U/L 38 - 113 U/L [facility] ALT [Catalytic activity/Vol] 21 U/L 10 - 54 U/L [facility] Anion gap [Moles/Vol] 11 mmol/L 9 - 18 mmol/L [facility] AST [Catalytic activity/Vol] 26 U/L 14 - 40 U/L [facility] Bilirubin [Mass/Vol] 0.5 mg/dL 0.2 - 1 .3 mg/dL [facility] Calcium [Mass/Vol] 8.8 mg/dL 8.5 - 10. 2 mg/dL [facility] Chloride [Moles/Vol] 106 mmol/L High 97 - 10 5 mmol/L [facility] CO2 [Moles/Vol] 24 mmol/L 22 - 30 mmol/L [facility] Creatinine [Mass/Vol] 2.30 mg/dL High 0.73 - 1.22 mg/dL [facility] Estimated Glomerular Filtration Rate 28 mL/min/1.73m Low >=60 mL/min/1.73 m [facility] Glucose [Mass/Vol] 113 mg/dL High 74 - 99 mg/dL [facility] Potassium [Moles/Vol] 4.6 mmol/L 3.7 - 5.1 mmol/L [facility] Protein [Mass/Vol] 7.0 g/dL 6.3 - 8.0 g/dL [facility] Sodium [Moles/Vol] 141 mmol/L 136 - 144 mmol/L [facility] Urea nitrogen [Mass/Vol] 28 mg/dL High 9 - 24 mg/dL [facility] HbA1c (Bld)on 08-14-2023 Average glucose Estimated from glycated hemoglobin (Bld) [Mass/Vol] 108 mg/dL [facility] HbA1c (Bld) [Mass fraction] 5.4 % 4.3 - 5.6 % [facility] Lipid 1996 panelon Cholesterol [Mass/Vol] 165 mg/dL <200 mg/dL [facility] Cholesterol in HDL [Mass/Vol] 44 mg/dL >39 mg/dL [facility] Cholesterol in LDL [Mass/Vol] 100 mg/dL High <100 mg/dL [facility] Cholesterol in LDL/Cholesterol in HDL [Mass ratio] 2.27 {ratio} <2.54 [facility] Cholesterol in VLDL [Mass/Vol] 21 mg/dL <30 mg/dL [facility] Cholesterol non HDL [Mass/Vol] 121 mg/dL <130 mg/dL [facility] Cholesterol.total/Julia sterol in HDL [Mass ratio] 3.75 {ratio} <5.10 [facility] Fasting Time 14 hrs [facility] Triglyceride [Mass/Vol] 106 mg/dL <150 mg/dL [facility] INR FINGERSTICK B/Oon 2021 INR Coag (Bld) [Relative time] 1.9 (self reporting) [facility] INR FINGERSTICK B/Oon 2021 INR Coag (Bld) [Relative time] 2.1 biotel [facility] Quality Check No [facility] Vital Signs Date Time Vital Sign Value Performing Clinician Facility 03-07-2025 12:57-0400 Body height 177.[address] Guanakito Reno MD Work Phone: [facility] 03-07-2025 12:57-0400 Body mass index (BMI) [Ratio] 35.9 kg/m2 Dr. Guanakito Reno MD Work Phone: [facility] 03-07-2025 12:57-0400 Body weight 113.[address] Guanakito Reno MD Work Phone: [facility] 01-21-2025 15:33-0400 Body mass index (BMI) [Ratio] 37.02 kg/m2 Carolina Landeros APRN.CAR SHAKEOUT OPERATOR Work Phone: [facility] 01-21-2025 15:33-0400 Body temperature 97.59 [degF] Carolina Landeros APRN.CAR SHAKEOUT OPERATOR Work Phone: [facility] 01-21-2025 15:33-0400 Body weight 117.03 kg Carolina Landeros APRN.CAR SHAKEOUT OPERATOR Work Phone: [facility] 01-21-2025 15:33-0400 Diastolic blood pressure 60 mm[Hg] Carolina Suppan PAPER SORTER.CAR SHAKEOUT OPERATOR Work Phone: [facility] 01-21-2025 15:33-0400 Heart rate 59 /min Carolina Suppan PAPER SORTER.CAR SHAKEOUT OPERATOR Work Phone: [facility] 01-21-2025 15:33-0400 SaO2% (BldA) [Mass fraction] 97 % Carolina Suppan PAPER SORTER.CAR SHAKEOUT OPERATOR Work Phone: [facility] 01-21-2025 15:33-0400 Systolic blood pressure 122 mm[Hg] Carolina Suppan PAPER SORTER.CAR SHAKEOUT OPERATOR Work Phone: [facility] 08-06-2024 12:57-0400 Body height 177.8 cm Laura Iraheta MD Work Phone: [facility] Comment on above: patient reports 08-06-2024 12:57-0400 Body mass index (BMI) [Ratio] 34.44 kg/m2 Laura Iraheta MD Work Phone: [facility] 08-06-2024 12:57-0400 Body weight 108.86 kg Laura Iraheta MD Work Phone: [facility] 08-06-2024 12:57-0400 Diastolic blood pressure 68 mm[Hg] Laura Iraheta MD Work Phone: [facility] 08-06-2024 12:57-0400 Heart rate 61 /min Laura Iraheta MD Work Phone: [facility] 08-06-2024 12:57-0400 SaO2% (BldA) [Mass fraction] 99 % Laura Iraheta MD Work Phone: [facility] 08-06-2024 12:57-0400 Systolic blood pressure 128 mm[Hg] Laura Iraheta MD Work Phone: [facility] 07-12-2024 11:22-0400 Body height 177.8 cm Guanakito Reno MD Work Phone: [facility] 07-12-2024 11:22-0400 Body mass index (BMI) [Ratio] 34.55 kg/m2 Guanakito Reno MD Work Phone: [facility] 07-12-2024 11:22-0400 Body weight 109.23 kg Guanakito Reno MD Work Phone: [facility] 07-12-2024 11:22-0400 Diastolic blood pressure 62 mm[Hg] Guanakito Reno MD Work Phone: [facility] 07-12-2024 11:22-0400 Heart rate 59 /min Guanakito Reno MD Work Phone: [facility] 07-12-2024 11:22-0400 Systolic blood pressure 114 mm[Hg] Guanakito Reno MD Work Phone: [facility] 07-10-2024 08:11-0400 Body height 177.8 cm Cal Mondragon MD Work Phone: [facility] Comment on above: Patient reports 07-10-2024 08:11-0400 Body mass index (BMI) [Ratio] 34.49 kg/m2 Cal Mondragon MD Work Phone: [facility] 07-10-2024 08:11-0400 Body weight 109.05 kg Cal Mondragon MD Work Phone: [facility] 07-10-2024 08:11-0400 Diastolic blood pressure 70 mm[Hg] Cal Mondragon MD Work Phone: [facility] 07-10-2024 08:11-0400 Heart rate 94 /min Cal Mondragon MD Work Phone: [facility] 07-10-2024 08:11-0400 SaO2% (BldA) [Mass fraction] 94 % Cal Mondragon MD Work Phone: [facility] 07-10-2024 08:11-0400 Systolic blood pressure 120 mm[Hg] Cal Mondragon MD Work Phone: [facility] 07-10-2024 08:08-0400 Body height 177.8 cm Pam Reddy MD Work Phone: [facility] Comment on above: Patient reports 07-10-2024 08:08-0400 Body mass index (BMI) [Ratio] 34.49 kg/m2 Pam Reddy MD Work Phone: [facility] 07-10-2024 08:08-0400 Body weight 109.05 kg Pam Reddy MD Work Phone: [facility] Comment on above: Fully clothed with shoes on. 07-10-2024 08:08-0400 Diastolic blood pressure 70 mm[Hg] Pam Reddy MD Work Phone: [facility] 07-10-2024 08:08-0400 Heart rate 94 /min Pam Reddy MD Work Phone: [facility] 07-10-2024 08:08-0400 SaO2% (BldA) [Mass fraction] 94 % Pam Reddy MD Work Phone: [facility] 07-10-2024 08:08-0400 Systolic blood pressure 120 mm[Hg] Pam Reddy MD Work Phone: [facility] 06-06-2024 11:31-0400 Body mass index (BMI) [Ratio] 36.03 kg/m2 Carolina Suppan PAPER SORTER.CAR SHAKEOUT OPERATOR Work Phone: [facility] 06-06-2024 11:31-0400 Body weight 110.68 kg Carolina Suppan PAPER SORTER.CAR SHAKEOUT OPERATOR Work Phone: [facility] 06-06-2024 11:31-0400 Diastolic blood pressure 68 mm[Hg] Carolina Suppan PAPER SORTER.CAR SHAKEOUT OPERATOR Work Phone: [facility] 06-06-2024 11:31-0400 Heart rate 71 /min Carolina Suppan PAPER SORTER.CAR SHAKEOUT OPERATOR Work Phone: [facility] 06-06-2024 11:31-0400 Respiratory rate 18 /min Carolina Suppan PAPER SORTER.CAR SHAKEOUT OPERATOR Work Phone: [facility] 06-06-2024 11:31-0400 SaO2% (BldA) [Mass fraction] 99 % Carolina Suppan PAPER SORTER.CAR SHAKEOUT OPERATOR Work Phone: [facility] 06-06-2024 11:31-0400 Systolic blood pressure 144 mm[Hg] Carolina Suppan PAPER SORTER.CAR SHAKEOUT OPERATOR Work Phone: [facility] 06-05-2024 16:41-0400 Body mass index (BMI) [Ratio] 36.04 kg/m2 Valerie Connelly PAPER SORTER.CAR SHAKEOUT OPERATOR Work Phone: [facility] 06-05-2024 16:41-0400 Body temperature 96.6 [degF] Valerie Connelly PAPER SORTER.CAR SHAKEOUT OPERATOR Work Phone: [facility] 06-05-2024 16:41-0400 Body weight 110.7 kg Valerie Connelly PAPER SORTER.CAR SHAKEOUT OPERATOR Work Phone: [facility] 06-05-2024 16:41-0400 Diastolic blood pressure 70 mm[Hg] Valerie Connelly PAPER SORTER.CAR SHAKEOUT OPERATOR Work Phone: [facility] 06-05-2024 16:41-0400 Heart rate 75 /min Valerie Connelly PAPER SORTER.CAR SHAKEOUT OPERATOR Work Phone: [facility] 06-05-2024 16:41-0400 Respiratory rate 19 /min Valerie Connelly PAPER SORTER.CAR SHAKEOUT OPERATOR Work Phone: [facility] 06-05-2024 16:41-0400 SaO2% (BldA) [Mass fraction] 97 % Valerie Connelly PAPER SORTER.CAR SHAKEOUT OPERATOR Work Phone: [facility] 06-05-2024 16:41-0400 Systolic blood pressure 140 mm[Hg] Valerie Connelly PAPER SORTER.CAR SHAKEOUT OPERATOR Work Phone: [facility] 05-06-2024 17:38-0400 Body height 175.3 cm Corrina Lennon PAPER SORTER.CAR SHAKEOUT OPERATOR Work Phone: [facility] 05-06-2024 17:38-0400 Body mass index (BMI) [Ratio] 37.95 kg/m2 Corrina Lennon PAPER SORTER.CAR SHAKEOUT OPERATOR Work Phone: [facility] 05-06-2024 17:38-0400 Body weight 116.57 kg Corrina Haagen PAPER SORTER.CAR SHAKEOUT OPERATOR Work Phone: [facility] 05-06-2024 17:38-0400 Diastolic blood pressure 58 mm[Hg] Corrina Haagen PAPER SORTER.CAR SHAKEOUT OPERATOR Work Phone: [facility] 05-06-2024 17:38-0400 Heart rate 62 /min Corrina Haagen PAPER SORTER.CAR SHAKEOUT OPERATOR Work Phone: [facility] 05-06-2024 17:38-0400 Respiratory rate 14 /min Corrina Haagen PAPER SORTER.CAR SHAKEOUT OPERATOR Work Phone: [facility] 05-06-2024 17:38-0400 SaO2% (BldA) [Mass fraction] 89 % Corrina Haagen PAPER SORTER.CAR SHAKEOUT OPERATOR Work Phone: [facility] 05-06-2024 17:38-0400 Systolic blood pressure 122 mm[Hg] Corrina Haagen PAPER SORTER.CAR SHAKEOUT OPERATOR Work Phone: [facility] 04-08-2024 15:17-0400 Body mass index (BMI) [Ratio] 37.63 kg/m2 Corrina Haagen PAPER SORTER.CAR SHAKEOUT OPERATOR Work Phone: [facility] 04-08-2024 15:17-0400 Body weight 115.58 kg Corrina Haagen PAPER SORTER.CAR SHAKEOUT OPERATOR Work Phone: [facility] 04-08-2024 14:55-0400 Diastolic blood pressure 58 mm[Hg] Corrina Haagen PAPER SORTER.CAR SHAKEOUT OPERATOR Work Phone: [facility] 04-08-2024 14:55-0400 Heart rate 72 /min Corrina Haagen PAPER SORTER.CAR SHAKEOUT OPERATOR Work Phone: [facility] 04-08-2024 14:55-0400 Respiratory rate 16 /min Corrina Haagen PAPER SORTER.CAR SHAKEOUT OPERATOR Work Phone: [facility] 04-08-2024 14:55-0400 Systolic blood pressure 102 mm[Hg] Corrina Haagen PAPER SORTER.CAR SHAKEOUT OPERATOR Work Phone: [facility] 03-26-2024 16:33-0400 Body height 175.3 cm Guanakito Reno MD Work Phone: [facility] 03-26-2024 16:33-0400 Body mass index (BMI) [Ratio] 37.07 kg/m2 Guanakito Reno MD Work Phone: [facility] 03-26-2024 16:33-0400 Body weight 113.85 kg Guanakito Reno MD Work Phone: [facility] 03-26-2024 16:33-0400 Diastolic blood pressure 46 mm[Hg] Guanakito Reno MD Work Phone: [facility] 03-26-2024 16:33-0400 Heart rate 86 /min Guanakito Reno MD Work Phone: [facility] 03-26-2024 16:33-0400 SaO2% (BldA) [Mass fraction] 98 % Guanakito Reno MD Work Phone: [facility] 03-26-2024 16:33-0400 Systolic blood pressure 98 mm[Hg] Guanakito Reno MD Work Phone: [facility] 03-25-2024 14:52-0400 Body mass index (BMI) [Ratio] 37.21 kg/m2 Pam Reddy MD Work Phone: [facility] 03-25-2024 14:52-0400 Body weight 114.31 kg Pam Reddy MD Work Phone: [facility] 03-25-2024 14:52-0400 Diastolic blood pressure 69 mm[Hg] Pam Reddy MD Work Phone: [facility] 03-25-2024 14:52-0400 Heart rate 66 /min Pam Reddy MD Work Phone: [facility] 03-25-2024 14:52-0400 SaO2% (BldA) [Mass fraction] 96 % Pam Reddy MD Work Phone: [facility] 03-25-2024 14:52-0400 Systolic blood pressure 116 mm[Hg] Pam Reddy MD Work Phone: [facility] 12-22-2023 14:55-0500 Body temperature 97.81 [degF] Carolina Suppan PAPER SORTER.BIRD CAGE ASSEMBLER Work Phone: [facility] 12-22-2023 14:55-0500 Diastolic blood pressure 60 mm[Hg] Carolina Suppan PAPER SORTER.BIRD CAGE ASSEMBLER Work Phone: [facility] 12-22-2023 14:55-0500 Heart rate 76 /min Carolina Suppan PAPER SORTER.BIRD CAGE ASSEMBLER Work Phone: [facility] 12-22-2023 14:55-0500 Respiratory rate 18 /min Carolina Suppan PAPER SORTER.BIRD CAGE ASSEMBLER Work Phone: [facility] 12-22-2023 14:55-0500 SaO2% (BldA) [Mass fraction] 99 % Carolina Suppan PAPER SORTER.BIRD CAGE ASSEMBLER Work Phone: [facility] 12-22-2023 14:55-0500 Systolic blood pressure 122 mm[Hg] Carolina Suppan PAPER SORTER.BIRD CAGE ASSEMBLER Work Phone: [facility] 08-14-2023 13:24-0400 Body height 175.3 cm Guanakito Reno MD Work Phone: [facility] 08-14-2023 13:24-0400 Body weight 120.75 kg Guanakito Reno MD Work Phone: [facility] 08-14-2023 13:24-0400 Diastolic blood pressure 68 mm[Hg] Guanakito Reno MD Work Phone: [facility] 08-14-2023 13:24-0400 Heart rate 59 /min Guanakito Reno MD Work Phone: [facility] 08-14-2023 13:24-0400 SaO2% (BldA) [Mass fraction] 99 % Guanakito Reno MD Work Phone: [facility] 08-14-2023 13:24-0400 Systolic blood pressure 120 mm[Hg] Guanakito Reno MD Work Phone: [facility] 02-13-2023 14:39-0400 Body weight 119.75 kg Pam Reddy MD Work Phone: [facility] 02-13-2023 14:39-0400 Diastolic blood pressure 60 mm[Hg] Pam Reddy MD Work Phone: [facility] 02-13-2023 14:39-0400 Heart rate 78 /min Pam Reddy MD Work Phone: [facility] 02-13-2023 14:39-0400 SaO2% (BldA) [Mass fraction] 96 % Pam Reddy MD Work Phone: [facility] 02-13-2023 14:39-0400 Systolic blood pressure 110 mm[Hg] Pam Reddy MD Work Phone: [facility] 02-06-2023 15:29-0400 Body weight 118.39 kg Guanakito Reno MD Work Phone: [facility] 02-06-2023 15:29-0400 Diastolic blood pressure 58 mm[Hg] Guanakito Reno MD Work Phone: [facility] 02-06-2023 15:29-0400 Heart rate 76 /min Guanakito Reno MD Work Phone: [facility] 02-06-2023 15:29-0400 Respiratory rate 16 /min Guanakito Reno MD Work Phone: [facility] 02-06-2023 15:29-0400 SaO2% (BldA) [Mass fraction] 94 % Guanakito Reno MD Work Phone: [facility] 02-06-2023 15:29-0400 Systolic blood pressure 122 mm[Hg] Guanakito Reno MD Work Phone: [facility] 10-04-2022 10:38-0500 Body height 175.3 cm Alondra Prescott DO Work Phone: [facility] 10-04-2022 10:38-0500 Body weight 117.03 kg Alondra Whalenle DO Work Phone: [facility] 10-04-2022 10:38-0500 Diastolic blood pressure 66 mm[Hg] Alondra Prescott DO Work Phone: [facility] 10-04-2022 10:38-0500 Heart rate 57 /min Alondra Prescott DO Work Phone: [facility] 10-04-2022 10:38-0500 SaO2% (BldA) [Mass fraction] 100 % Alondra Prescott DO Work Phone: [facility] 10-04-2022 10:38-0500 Systolic blood pressure 122 mm[Hg] Alondra Prescott DO Work Phone: [facility] 08-15-2022 14:50-0400 Body height 175.3 cm Pam Reddy MD Work Phone: [facility] 08-15-2022 14:50-0400 Body weight 119.3 kg Pam Reddy MD Work Phone: [facility] 08-15-2022 14:50-0400 Diastolic blood pressure 62 mm[Hg] Pam Reddy MD Work Phone: [facility] 08-15-2022 14:50-0400 Heart rate 58 /min Pam Reddy MD Work Phone: [facility] 08-15-2022 14:50-0400 Respiratory rate 18 /min Pam Reddy MD Work Phone: [facility] 08-15-2022 14:50-0400 SaO2% (BldA) [Mass fraction] 98 % Pam Reddy MD Work Phone: [facility] 08-15-2022 14:50-0400 Systolic blood pressure 114 mm[Hg] Pam Reddy MD Work Phone: [facility] 01-19-2022 15:14-0400 Body weight 121.11 kg Guanakito Reno MD Work Phone: [facility] 01-19-2022 15:14-0400 Diastolic blood pressure 68 mm[Hg] Guanakito Reno MD Work Phone: [facility] 01-19-2022 [id number] Heart rate 60 /min Guanakito Reno MD Work Phone: [facility] 01-19-2022 15:[id number] Systolic blood pressure 124 mm[Hg] Guanakito Reno MD Work Phone: [facility] Encounters Encounter Date Encounter Type Care Provider Facility Start: 08-26-2025 ambulatory Josafat Simon OLS Facil ity:[facility] Start: 08-19-2025 ambulatory Josafat Simon OLS Facil ity:[facility] Start: 08-14-2025 ambulatory Josafat Simon OLS Facil ity:[facility] Start: 07-31-2025 ambulatory Josafat Simon OLS Facil ity:[facility] Start: 07-17-2025 End: 07-17-2025 ambulatory Guanakito Shadia Facility:[facility] Start: 07-08-2025 End: 07-08-2025 ambulatory Josafat Simon OLS Facility:[facility] Start: 06-24-2025 End: 06-24-2025 ambulatory Josafat Simon OLS Facility:[facility] Start: 06-17-2025 ambulatory Josafat Simon OLS Facil ity:[facility] Start: 06-12-2025 End: 06-12-2025 ambulatory Josafat Simon OLS Facility:[facility] Start: 06-10-2025 End: 06-10-2025 ambulatory Bianka ORTEZ Facility:[facility] Start: 06-03-[address] Josafat juarez MD -[facility] Start: 06-03-2025 End: 06-03-2025 ambulatory Guanakito Muskogee Facility:[facility] Start: 05-27-[address] Josafat juarez MD -[facility] Start: 05-27-2025 End: 05-27-2025 ambulatory Josafat ORTEZ Facility:[facility] Start: 05-20-2025 End: 05-20-[address] Guanakito Reno MD Work Phone: -[facility] Start: 05-20-2025 End: 05-20-[address] Josafat Simon MD [facility] Start: 05-20-2025 End: 05-20-2025 ambulatory Josafat ORTEZ Facility:[facility] Start: 05-15-2025 ambulatory Josafat ORTEZ Facil ity:[facility] Start: 05-15-[address] Josafat juarez MD [facility] Start: 05-13-[address] Josafat juarez MD [facility] Start: 05-13-2025 End: 05-13-2025 ambulatory Josafat ORTEZ Facility:[facility] Start: 05-08-2025 ambulatory Josafat ORTEZ Facil ity:[facility] Start: 05-08-[address] Josafat juarez MD [facility] Start: 05-06-[address] Josafat juarez MD [facility] Start: 05-06-2025 End: 05-06-2025 ambulatory Josafat ORTEZ Facility:[facility] Start: 05-02-2025 End: 05-02-[address] Burt Zamora MD -[facility] Start: 05-02-2025 End: 05-02-[address] Guanakito Reno MD Work Phone: -[facility] Start: 05-01-2025 ambulatory Josafat ORTEZ Facil ity:[facility] Start: 05-01-[address] Josafat juarez MD -[facility] Start: 04-29-[address] Josafat juarez MD [facility] Start: 04-29-2025 End: 04-29-2025 ambulatory Josafat ORTEZ Facility:[facility] Start: 04-24-2025 ambulatory Josafat ORTEZ Facil ity:[facility] Start: 04-24-[address] Josafat juarez MD [facility] Start: 04-17-[address] Bianka Gonzalez MD [facility] Start: 04-17-2025 End: 04-17-2025 ambulatory Bianka ORTEZ Facility:[facility] Start: 04-15-2025 End: 04-15-2025 Telephone encounter Twin Cole [facility] Ambulatory Telemanagement Comment on above: Anticoagulation Tele phone Fu (Home INR result) Start: 04-14-2025 End: 04-14-2025 Telephone encounter Guanakito Reno MD Work Phone: [facility] Comment on above: Patient Question Start: 04-14-2025 ambulatory Josafat García Facility :[facility] Start: 04-14-[address] Josafat García MD -Physical Therapy Work Phone: Start: 04-08-2025 End: 04-08-2025 Refill Carolina Landeros PAPER SORTER.CAR SHAKEOUT OPERATOR Work Phone: [facility] Comment on above: Refill Request Start: 03-28-2025 End: 03-28-2025 Telephone encounter Guanakito Reno MD Work Phone: [facility] Comment on above: Faxed to [facility] Start: 03-24-2025 End: 03-24-2025 Telephone encounter Alejandro Molina [facility] Ambulatory Telemanagement Comment on above: Anticoagulation Tele phone Fu (Home INR Result ) Start: 03-07-2025 End: 03-07-[address] Josafat García MD -[facility] Work Phone: Start: 03-07-2025 End: 03-07-2025 ambulatory Guanakito Reno Facility:[facility] Start: 03-06-2025 End: 03-06-2025 ambulatory CAROLINA LANDEROS Facility:[facility] Start: 03-05-2025 End: 03-06-2025 Emergency department patient visit KEDAR CHINCHILLASARAH Facility:[facility] Start: 02-20-2025 End: 02-20-2025 Telephone encounter Jimmy Carrizales [facility] Ambulatory Telemanagement Comment on above: Anticoagulation Tele phone Fu (Home INR) Start: 01-31-2025 End: 01-31-2025 Telephone encounter Kamran Ayon [facility] Ambulatory Telemanagement Comment on above: Anticoagulation Tele phone Fu (INR Home Test Result) Start: 01-23-2025 End: 03-25-2025 Follow-up encounter Carolina Landeros APRN.CNP [facility] Phone: [facility] Start: 01-21-2025 End: 01-21-2025 ambulatory CAROLINA LANDEROS Facility:[facility] Start: 01-21-2025 End: 01-21-2025 Office outpatient visit 25 minutes Carolina Landeros APRN.CAR SHAKEOUT OPERATOR Work Phone: [facility] Comment on above: Hyperlipidemia, mixe d (Primary [...] (HCC); Chronic renal disease, stage IV (HCC); FPC (current) use of anticoagulants; Obesity, Class II, BMI 35-39.9; Viral conjunctivitis; Seasonal allergic rhinitis, unspecified trigger; Bilateral impacted cerumen Start: 01-08-2025 End: 01-15-2025 Telephone encounter Ruthie Cuevas [facility] Ambulatory Telemanagement Comment on above: Anticoagulation Foll ow Up (Home INR result ) Start: 01-07-2025 End: 01-08-2025 Refill Corrina Lennon APRN.CAR SHAKEOUT OPERATOR Work Phone: [facility] Comment on above: Refill Request Start: 12-30-2024 End: 12-30-2024 Telephone encounter Twin Cole [facility] Ambulatory Telemanagement Comment on above: Anticoagulation Tele phone Fu (Home INR result) Start: 12-11-2024 End: 12-11-2024 Telephone encounter Jimmy Carrizales [facility] Ambulatory Telemanagement Comment on above: Anticoagulation Tele phone Fu (Home INR) Start: 11-26-2024 End: 11-26-2024 Telephone encounter Twin Cole [facility] Ambulatory Telemanagement Comment on above: Anticoagulation Tele phone Fu (Home INR result) Start: 10-28-2024 End: 10-28-2024 Telephone encounter Alejandro Ulysses [facility] Ambulatory Telemanagement Comment on above: Anticoagulation Tele phone Fu (Home INR Result ) Start: 10-21-2024 End: 10-21-2024 Telephone encounter Guanakito Reno MD Work Phone: [facility] [place] Comment on above: Patient Update; Rozina ent Question Start: 10-01-2024 End: 10-01-2024 Telephone encounter Twin Cole [facility] Ambulatory Telemanagement Comment on above: Anticoagulation Tele phone Fu (Home INR result) Start: 08-26-2024 End: 08-26-2024 Telephone encounter Alejandro Ulysses [facility] Ambulatory Telemanagement Comment on above: Anticoagulation Tele phone Fu (Home INR Result ) Start: 08-19-2024 End: 08-19-2024 ambulatory Melania Galindo RN [employer] Comment on above: ACNiels SMITH RN ( Medication Adherence Review per Request of Payor ) Start: 08-16-2024 End: 08-16-2024 Telephone encounter Jimmy Stanley [facility] Start: 08-06-2024 End: 08-06-2024 Office outpatient new 45 minutes Laura Iraheta MD Work Phone: [facility] Comment on above: Bilateral carotid ar jeanne stenosis (Primary Dx); History of carotid endarterectomy Start: 07-30-2024 End: 07-30-2024 ambulatory Josselyn Mayer PAPER SORTER.CAR SHAKEOUT OPERATOR Work Phone: [facility] [place] Start: 07-30-2024 End: 08-01-2024 Telephone encounter Josselyn Mayer PAPER SORTER.CAR SHAKEOUT OPERATOR Work Phone: [facility] [place] Comment on 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 Start: 07-25-2024 End: 07-26-2024 Telephone encounter Jimmy Carrizales [facility] Ambulatory Telemanagement Comment on above: Anticoagulation (Pat ient update) Start: 07-23-2024 End: 07-23-[address] ([facility] Start: 07-23-2024 End: 07-23-2024 Subsequent hospital visit by physician [facility] [place] [facility] 1 (I-Stat) RADIO CT [facility] Comment on above: Nonrheumatic aortic valve stenosis [I35.0] Start: 07-15-2024 End: 07-15-2024 Orders Only Valerie Brito APRN.CNP Work Phone: [facility] Comment on above: Paroxysmal atrial fi brillation (HCC) (Primary Dx); Aortic valve stenosis, etiology of cardiac valve disease unspecified Nonrheumatic aortic valve stenosis (Primary Dx); Paroxysmal atrial fibrillation (HCC) Patient Update Results Start: 07-12-2024 End: 07-12-2024 Telephone encounter Guanakito Reno MD Work Phone: [facility] [place] Start: 07-12-2024 End: 07-15-2024 Patient encounter procedure Guanakito Reno MD Work Phone: [facility] [place] Comment on above: Essential hypertensi on (Primary [...] disease, stage IV (HCC); Mixed dementia (HCC); 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; Need for vaccination Essential hypertensi on (Primary Dx) Start: 07-10-2024 End: 07-10-2024 Subsequent hospital visit by physician Ekg/Holter/Event Monitor [place] [facility] Comment on above: Nonrheumatic aortic valve stenosis [I35.0] Start: 07-10-2024 End: 07-10-2024 Patient encounter procedure Cal Mondragon MD Work Phone: [facility] Comment on above: [...] encounter status Pam Reddy MD Work Phone: [facility] Work Phone: Start: 07-05-2024 End: 07-05-2024 Telephone encounter Annamarie Garcia [facility] Comment on above: Anticoagulation Tele phone Fu Start: 2024 End: 2024 Telephone encounter Guanakito Reno MD Work Phone: Pul[facility] Start: 06-18-2024 End: 06-18-2024 Telephone encounter Jimmy Carrizales [facility] Ambulatory Telemanagement Comment on above: Anticoagulation Tele phone Fu (Home INR) Start: 06-06-2024 End: 06-06-2024 Office outpatient visit 15 minutes Carolina Landeros APRN.CAR SHAKEOUT OPERATOR Work Phone: [facility] [place] Comment on above: Aortic valve stenosi s, etiology of cardiac valve disease unspecified (Primary Dx); Hypertensive kidney disease with stage 3b chronic kidney disease (HCC); Paroxysmal atrial fibrillation (HCC); Benign prostatic hyperplasia without lower urinary tract symptoms; Anemia, unspecified type Start: 06-05-2024 End: 06-05-2024 Patient encounter procedure Valerie Connelly APRN.CAR SHAKEOUT OPERATOR Work Phone: [facility] Comment on above: Blood pressure check (Primary Dx); Leg swelling Start: 06-05-2024 End: 06-05-2024 Patient encounter status Valerie Connelly APRN.CAR SHAKEOUT OPERATOR Work Phone: [facility] Work Phone: Start: 06-03-2024 End: 06-05-2024 ambulatory Guanakito Reno MD Work Phone: [facility] [place] Comment on above: Water pill/ kidney d r # Start: 05-20-2024 Telephone encounter Josselyn Mayer APRN.CAR SHAKEOUT OPERATOR Work Phone: [facility] [place] Comment on 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 Results Start: 05-17-2024 Telephone encounter Dorothy Joshua [facility] Comment on above: Anticoagulation Tele phone Fu Start: 05-06-2024 End: 05-06-2024 Office outpatient visit 15 minutes Corrina Lennon APRN.CAR 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 OPERATOR Work Phone: [facility] [place] Comment on above: Essential hypertensi on (Primary Dx); Hypertensive kidney disease with stage 3 chronic kidney disease, unspecified whether stage 3a or 3b CKD (HCC); Anemia, unspecified type Start: 05-02-2024 End: 05-02-2024 Subsequent hospital visit by physician [facility] Work Phone: Radiology Comment on above: Renal insufficiency [N28.9] Start: 04-24-2024 Telephone encounter [facility]ulatory Tele[facility] Comment on above: Anticoagulation Tele phone Fu (Home INR) Start: 04-19-2024 Telephone encounter Guanakito Reno MD Work Phone: [facility] [place] Comment on above: Results Start: 04-08-2024 End: 04-08-2024 Office outpatient visit 25 minutes Corrina Lennon APRN.CAR SHAKEOUT OPERATOR Work Phone: [facility] [place] Comment on [...] Guanakito Reno MD Work Phone: [facility] [place] Comment on above: Results Start: 04-04-2024 Telephone encounter Jimmy Carrizales [facility] Ambulatory Telemanagement Comment on above: Anticoagulation Tele phone Fu (Home INR) Start: 03-26-2024 End: 03-26-2024 Patient encounter procedure Guanakito Reno MD Work Phone: [facility] [place] Comment on above: Essential hypertensi on (Primary [...] payor) Start: 03-07-2024 Telephone encounter Jimmy Carrizales [facility] Ambulatory [...] Office outpatient visit 15 minutes Carolina Landeros APRN.BIRD CAGE ASSEMBLER Work Phone: [facility] [place] Comment on above: Abrasion of arm, lef t, initial encounter (Primary Dx); Chronic insomnia Start: 12-21-2023 ambulatory Guanakito Reno MD Work Phone: [facility] [place] Comment on above: skin laceration Start: 12-21-2023 Telephone encounter Jimmy Carrizales [facility] Ambulatory [...] payer) Start: 08-22-2023 Telephone encounter Twin Cole [facility] Ambulatory Telemanagement Comment on above: Anticoagulation Tele phone Fu (Home INR result) Start: 08-16-2023 Telephone encounter Guanakito Reno MD Work Phone: [facility] [place] Comment on above: Results Start: 08-15-2023 Telephone encounter Guanakito Rneo MD Work Phone: [facility] [place] Comment on above: Results Start: 08-14-2023 End: 08-14-2023 Patient encounter procedure Guanakito Reno MD Work Phone: [facility] [place] Comment on above: Onychomycosis (Prima [...] 07-04-2023 Refill Guanakito Reno MD Work Phone: [facility] [place] Comment on above: Refill Request Start: 2023 ambulatory Lizette Cardenas RN [facility] Comment on above: QI SMITH RN ( Medication Adherence review per request of payer) Start: 05-22-2023 Telephone encounter [facility] Ambulatory Tele[facility] Comment on above: Anticoagulation Tele phone Fu (Home INR Result ) Start: 04-24-2023 Telephone encounter [facility] Tele[facility] Comment on above: Anticoagulation Tele phone Fu (Home INR Result ) Start: 04-19-2023 Refill Guanakito Reno MD Work Phone: [facility] [place] Comment on above: Refill Request Start: 03-28-2023 Telephone encounter [facility] Ambulatory Telemanagement Comment on above: Anticoagulation Tele phone Fu (Home INR result) Start: 02-13-2023 End: 02-13-2023 Patient encounter procedure Pam Reddy MD Work Phone: Cardiology Comment on above: Syncope, unspecified syncope type (Primary Dx); Aortic valve disorder Start: 02-06-2023 End: 02-06-2023 Patient encounter procedure Guanakito Reno MD Work Phone: [facility] [place] Comment on above: Essential hypertensi on with [...] Refill Guanakito Reno MD Work Phone: [facility] [place] Comment on above: Refill Request Start: 01-09-2023 Telephone encounter [facility] Tele[facility] Comment on above: Anticoagulation (INR Result) Start: 12-19-2022 Telephone encounter Alejandro Ulysses [facility] Telemanagement Comment on above: Anticoagulation Tele phone Fu (Home INR Result ) Start: 11-28-2022 Telephone encounter Alejandro Molina [facility] Ambulatory Telemanagement Comment on above: Anticoagulation Tele phone Fu (Home INR Result ) Start: 11-18-2022 Telephone encounter Kamran Ayon [facility] Ambulatory Telemanagement Comment on above: Anticoagulation Tele phone Fu Start: 11-04-2022 Telephone encounter Kamran Ayon [facility] Ambulatory Telemanagement Comment on above: Anticoagulation Tele phone Fu (INR Home Test Result) Start: 11-01-2022 Telephone encounter Twin Cole RP [facility] Ambulatory Telemanagement Comment on above: Anticoagulation Tele phone Fu (Home INR expected) Start: 10-19-2022 Telephone encounter Ruthie [facility] Tele[facility] Comment on above: Anticoagulation Tele phone Fu (Home INR result) Start: 10-04-2022 End: 10-04-2022 Patient encounter procedure Alondra Prescott DO Work Phone: Vascular Surgery Comment on above: Bilateral carotid ar jeanne stenosis (Primary Dx) Start: 09-23-2022 Refill Guanakito Reno MD Work Phone: [facility] Comment on above: Orders; Refill Reque st Start: 09-21-2022 Telephone encounter [facility]ie [facility] Telemanagement Comment on above: Anticoagulation Tele phone Fu (Home INR result expected) Start: 09-07-2022 ambulatory Lizette Cardenas RN [facility] Comment on above: QI SMITH RN ( Medication Adherence review at request of payer) Start: 08-22-2022 Telephone encounter Alejandro Molina [facility] Ambulatory Telemanagement Comment on above: Anticoagulation (INR result) Start: 08-15-2022 End: 08-15-2022 Patient encounter procedure Pam Reddy MD Work Phone: Cardiology Comment on above: Obesity, Class II, B MN 35-39.9 (Primary Dx); Paroxysmal atrial fibrillation (HCC); Nonrheumatic aortic valve stenosis; Aortic valve disorder Start: 08-01-2022 Telephone encounter [facility] Comment on above: Anticoagulation Tele phone Fu (Home INR Result) Start: 07-22-2022 Refill Guanakito Reno MD Work Phone: [facility] Comment on above: Refill Request Start: 2022 Telephone encounter [facility] Comment on above: Anticoagulation (INR result ) Start: 06-14-2022 ambulatory Nirmala Lim [facility] Comment on above: Population Health Na vigation Outreach ([facility] care gaps) Start: 06-06-2022 Telephone encounter [facility] Comment on above: Anticoagulation (Gabrielle e INR) Start: 05-19-2022 Refill Guanakito Reno MD Work Phone: [facility] Comment on above: Refill Request Start: 05-16-2022 Telephone encounter [facility] Comment on above: Anticoagulation Tele phone Fu (Home INR Result) Start: 04-25-2022 Telephone encounter Val Oliver [facility] Comment on above: Anticoagulation [...] ) Start: 02-17-2022 Telephone encounter Jazmyn Garcia [facility] Tele[facility] Comment on above: Anticoagulation Tele phone Fu Start: 02-08-2022 Telephone encounter Twin Cole [facility] Ambulatory Telemanagement Comment on above: Anticoagulation Tele phone Fu (Home INR result) Start: 01-25-2022 Telephone encounter Twin Cole [facility] Ambulatory Telemanagement Comment on above: Anticoagulation Tele phone Fu (Home INR result) Start: 01-19-2022 End: 01-19-2022 Patient encounter procedure Guanakito Reno MD Work Phone: [facility] Comment on above: Essential hypertensi on (Primary [...] Tele phone Fu Start: 06-07-2018 Ambulatory [facility] Facility :[facility] Start: 11-24-2017 End: 11-24-2017 Ambulatory [facility] Facility:[facility] Procedures Date Procedure Procedure Detail Performing Clinician [...] Velasquez with bovine patch angioplasty, 04/17/2014 @ [facility] History of carotid endarterectomy History of carotid endarterectomy Guanakito Reno MD Work Phone: History of carotid endarterectomy History of carotid endarterectomy Laura Iraheta MD Work Phone: Plan of Treatment Date Care Activity Detail Author Start: 04-22-2031 Urine microalbumin profile [facility] Start: 01-21-2026 Diabetic foot examination Diabetic Foot Exam [facility] Start: 01-21-2026 Hepatitis B surface antibody level LDL Cholesterol [facility] Start: 08-06-2025 End: 09-05-2025 US Carotid arteries - bilateral US CAROTID BILATERAL Radiology Routine Bilateral carotid artery stenosis History of carotid endarterectomy Expected: 08/06/2025 (Approximate), Expires: 09/05/2025 [facility] Work Phone: Comment on above: Expected: 08/06/2025 (Approximate), Expi res: 09/05/2025 Start: 07-23-2025 End: 07-23-2025 Patient encounter procedure 07/23/2025 3:20 PM EDT Office Visit [facility] [address] [place] [address] Guanakito Reno MD [address] [place] [address] 6 month exam [facility] Comment on above: 6 month exam Start: 07-23-2025 Hemoglobin A1c measurement HbA1C [facility] Start: 07-12-2025 Covid-19 Vaccine ( season) Covid-19 Vaccine () [facility] Comment on above: Postponed from 01/09/2025 (Declined at t his time) Start: 07-12-2025 Hepatitis B surface antibody level LDL Cholesterol [facility] Start: 06-16-2025 Influenza vaccination Influ[facility] (#[facility] Start: 05-06-2025 Annual PCP Team Chronic Disease Visit Annual PCP Team Chronic Disease Visit [facility] Start: 05-06-2025 BP Controlled (<130/80) BP Controlled (<130/80) [facility] Start: 05-02-2025 Plain X-ray of shoulder Shoulder min 2 Views [facility] Start: 05-02-2025 XR Shoulder GE 2 Views [facility] Start: 04-19-2025 Complete blood count Hemoglobin/Hematocrit [facility] Start: 04-19-2025 Creatinine measurement Serum Creatinine [facility] Start: 04-08-2025 Annual PCP Team Chronic Disease Visit Annual PCP Team Chronic Disease Visit [facility] Start: 04-08-2025 BP Controlled (<130/80) BP Controlled (<130/80) [facility] Start: 04-04-2025 Complete blood count Hemoglobin/Hematocrit [facility] Start: 04-04-2025 Creatinine measurement Serum Creatinine [facility] Start: 03-26-2025 Annual PCP Team Chronic Disease Visit Annual PCP Team Chronic Disease Visit [facility] Start: 03-26-2025 BP Controlled (<130/80) BP Controlled (<130/80) [facility] Start: 03-26-2025 Covid-19 Vaccine ( season) Covid-19 Vaccine () [facility] Comment on above: Postponed from 12/14/2023 (Declined at t his time) Start: 03-26-2025 Shingrix Vaccine (1 of 2) Shingrix Vaccine (1 of 2) [facility] Comment on above: Postponed from 1993 (Declined at t his time) Start: 03-25-2025 BP Controlled (<130/80) BP Controlled (<130/80) [facility] Start: 03-25-2025 Complete blood count Hemoglobin/Hematocrit [facility] Start: 03-25-2025 Creatinine measurement Serum Creatinine [facility] Start: 01-21-2025 End: 01-21-2025 Patient encounter procedure 01/21/2025 3:40 PM EDT Office Visit [facility] [address] [place] [address] Carolina Landeros APRN.CAR SHAKEOUT OPERATOR [address] [place] [address] [facility] [place] Comment on above: 6 month follow up Start: 01-21-2025 End: 04-22-2025 CBC W Auto Differential panel - Blood [facility] Comment on above: Expected: 01/21/2025, Expires: Start: 01-21-2025 End: 04-22-2025 Cobalamin (Vitamin B12) [Mass/volume] in Serum or Plasma [facility] Comment on above: Expected: 01/21/2025, Expires: Start: 01-21-2025 End: 04-22-2025 Comprehensive metabolic 2000 panel - Serum or Plasma [facility] Work Phone: Comment on above: Expected: 01/21/2025, Expires: Start: 01-21-2025 End: 04-22-2025 Hemoglobin A1c in Blood [facility] Comment on above: Expected: 01/21/2025, Expires: Start: 01-21-2025 End: 04-22-2025 LIPID PANEL, NONFASTING [facility] Comment on above: Expected: 01/21/2025, Expires: Start: 01-21-2025 End: 04-22-2025 Magnesium [Mass/volume] in Serum or Plasma [facility] Comment on above: Expected: 01/21/2025, Expires: Start: 01-13-2025 End: 01-13-2025 Patient encounter procedure 01/13/2025 10:40 AM EDT Office Visit [facility] [place] [address] [place] [address] Guanakito Reno MD [address] [facility] [place] [address] 6 month follow up [facility] Comment on above: 6 month follow up Start: 01-09-2025 Hemoglobin A1c measurement HbA1C [facility] Start: 12-21-2024 BP Controlled (<130/80) BP Controlled (<130/80) [facility] Start: 10-16-2024 Advance Directive Discussion Advance Directive Discussion [facility] Start: 10-16-[address] [facility] Annual Wellness Visit Medicare Advantage Annual Wellness Visit [facility] Start: 10-04-2024 Hemoglobin A1c measurement HbA1C [facility] Start: 08-14-2024 3 comp foot exam completed Diabetic Foot Exam [facility] Start: 08-14-2024 Annual PCP Team Chronic Disease Visit Annual PCP Team Chronic Disease Visit [facility] Start: 08-14-2024 BP Controlled (<130/80) BP Controlled (<130/80) [facility] Start: 08-14-2024 Complete blood count Hemoglobin/Hematocrit [facility] Start: 08-14-2024 Creatinine measurement Serum Creatinine [facility] Start: 08-14-2024 Diabetic foot examination Diabetic Foot Exam [facility] Start: 08-14-2024 Hemoglobin/Hematocrit Hemoglobin/Hematocrit [facility] Start: 08-14-2024 Hepatitis B surface antibody level LDL Cholesterol [facility] Start: 08-14-2024 Hepatitis B Vaccine (1 of 3 - Risk 3-dose series) Hepatitis B Vaccine (1 of 3 - Risk 3-dose series) [facility] Comment on above: Postponed from 2003 (Declined at t his time) Start: 08-14-2024 RSV Vaccine (1 - 1-dose 60+ series) RSV Vaccine (1 - 1-dose 60+ series) [facility] Comment on above: Postponed from 2003 (Declined at t his time) Start: 08-14-2024 RSV Vaccine (1 - 1-dose 75+ series) RSV Vaccine (1 - 1-dose 75+ series) [facility] Comment on above: Postponed from 2018 (Declined at t his time) Start: 08-14-2024 Serum Creatinine Serum Creatinine [facility] Start: 08-06-2024 End: 08-06-2024 Patient encounter procedure 08/06/2024 1:00 PM EDT Office Visit [facility] [address] [place] [address] Laura Iraheta MD [address] [facility] [address] [place] [address] Referral from Josselyn Mayer - carotid stenosis 05/02/24 Carotid US [facility] Comment on above: Referral from Josselyn Mayer - carotid s tenosis 05/02/24 Carotid US Start: 07-29-2024 End: 07-29-2024 ambulatory 07/29/2024 11:15 AM EDT Results Only [facility] [place] [facility] [address] [place] [address] [facility] Start: 07-23-2024 End: 07-23-2024 Admission to same day surgery center 07/23/2024 10:00 AM EDT - 07/23/2024 11:30 AM EDT Surgery [facility] [address] [place] [address] Pam Reddy MD [address], [address] [place], [place] [id number] (Fax) CORONARY CATH RIGHT/LEFT HEART ANGIO INTRAPROCEDURAL INJECT IMAGING SUPERVISIO/INTERPRETATIO N [facility] Comment on above: CORONARY CATH RIGHT/LEFT HEART ANGIO INT RAPROCEDURAL INJECT IMAGING SUPERVISIO/INTERPRETATION Start: 07-23-2024 End: 07-23-2024 R & l hrt cath winjx hrt art& l ventr img CORONARY CATH RIGHT/LEFT HEART ANGIO INTRAPROCEDURAL INJECT IMAGING SUPERVISIO/INTERPRETATIO N Valvular heart disease 07/23/2024 10:00 AM EDT [facility] Start: 07-23-2024 Subsequent hospital visit by physician 07/23/2024 10:00 AM EDT Hospital Encounter [facility] [address] [place] [address] Pam Reddy MD [address], [address] [place], [place] [id number] Valvular heart disease [I38] [facility] Comment on above: Valvular heart disease [I38] Start: 07-23-2024 End: 07-23-2024 Patient encounter procedure 07/23/2024 7:30 AM EDT Appointment [facility] [address] [place] [address] 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.0]; Encounter for preprocedural cardiovascular examination [Z01.810] [facility] Comment on above: 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.0]; Encounter for preprocedural cardiovascular examination [Z01.810] Start: 07-16-2024 End: 07-16-2024 Patient encounter procedure [facility] Comment on above: Referral from Josselyn Mayer - carotid s tenosis Referral from Effie Myaer - carotid stenosis 05/02/24 Carotid US Start: 07-15-2024 End: 10-14-2024 PT panel - Platelet poor plasma by Coagulation assay PROTHROMBIN TIME Lab Routine Nonrheumatic aortic valve stenosis Paroxysmal atrial fibrillation (HCC) Expected: 07/15/2024, Expires: 10/14/2024 [facility] Work Phone: Comment on above: Expected: 07/15/2024, Expires: 4 Start: 07-12-2024 End: 10-11-2024 CBC W Auto Differential panel - Blood [facility] Comment on above: Expected: 07/12/2024, Expires: 4 Start: 07-12-2024 End: 10-11-2024 Comprehensive metabolic 2000 panel - Serum or Plasma [facility] Comment on above: Expected: 07/12/2024, Expires: Start: 07-12-2024 End: 10-11-2024 Hemoglobin A1c in Blood [facility] Work Phone: Comment on above: Expected: 07/12/2024, Expires: 4 Start: 07-12-2024 End: 10-11-2024 LIPID PANEL, NONFASTING [facility] Comment on above: Expected: 07/12/2024, Expires: 4 Start: 07-12-2024 End: 07-12-2024 Patient encounter procedure 07/12/2024 11:20 AM EDT Office Visit [facility] [address] [place] [address] Guanakito Reno MD [address] [place] [address] 2 month follow up- stool sample,kidney and meds [facility] Comment on above: 2 month follow up- stool sample,kidney a nd meds Start: 07-10-2024 End: 10-09-2024 Basic metabolic 2000 panel - Serum or Plasma BASIC METABOLIC PANEL Lab Routine Nonrheumatic aortic valve stenosis Expected: 07/10/2024, Expires: 10/09/2024 [facility] Comment on above: Expected: 07/10/2024, Expires: Start: 07-10-2024 End: 10-09-2024 CBC panel - Blood by Automated count COMPLETE BLOOD COUNT Lab Routine Nonrheumatic aortic valve stenosis Expected: 07/10/2024, Expires: 10/09/2024 [facility] Comment on above: Expected: 07/10/2024, Expires: Start: 07-10-2024 End: 10-09-2024 Natriuretic peptide.B prohormone N-Terminal [Mass/volume] in Serum or Plasma NT PRO BNP Lab Routine Nonrheumatic aortic valve stenosis Dyspnea on exertion Expected: 07/10/2024, Expires: 10/09/2024 [facility] Comment on above: Expected: 07/10/2024, Expires: 4 Start: 07-10-2024 End: 10-09-2024 PT panel - Platelet poor plasma by Coagulation assay PROTHROMBIN TIME Lab Routine Nonrheumatic aortic valve stenosis Expected: 07/10/2024, Expires: 10/09/2024 [facility] Comment on above: Expected: 07/10/2024, Expires: Start: 07-10-2024 End: 07-10-2024 Patient encounter procedure [facility] Comment on above: Valve Clinic- Initial Visit- 5M Walk,EKG ,KCCQ Start: 06-16-2024 Covid-19 Vaccine ( season) Covid-19 Vaccine ( season) [facility] Start: 06-16-2024 Covid-19 Vaccine ( season) Covid-19 Vaccine () [facility] Start: 06-16-2024 Influenza vaccination Influenza Vaccine (#1) [facility] Start: 06-06-2024 End: 06-06-2024 Patient encounter procedure 06/06/2024 11:20 AM EDT Office Visit Family [facility] [place] [address] [facility] [place] [address] Carolina Landeros APRN.CAR SHAKEOUT OPERATOR [address] [place], [place] [address] Urgent care follow up [facility] Comment on above: Urgent care follow up Start: 05-06-2024 End: 05-06-2024 Patient encounter procedure 05/06/2024 5:40 PM EDT Office Visit Family [facility] [place] [address] [facility] [place] [address] Corrina Lennon APRN.CAR SHAKEOUT OPERATOR [address] [facility] [place] [address] 1 month follow up Family [facility] Comment on above: 1 month follow up Start: 05-02-2024 End: 05-02-2024 Patient encounter procedure Radiology Comment on above: Renal insufficiency [N28.9] History of carotid e ndarterectomy [Z98.890] Syncope, unspecified syncope type [R55]; Aortic valve disorder [I35.9] Start: 04-08-2024 End: 04-08-2024 Patient encounter procedure 04/08/2024 3:00 PM EDT Office Visit [facility] [place] [address] [facility] [place] [address] Corrina Lennon, ÁLVARO.CAR SHAKEOUT OPERATOR [address] [place], [place] [id number] 2 w f/u [facility] Comment on above: 2 w f/u Start: 04-08-2024 End: 03-25-2025 Echocardiography ECHO Cardiology Routine Syncope, unspecified syncope type Aortic valve disorder Expected: 04/08/2024, Expires: 03/25/2025 [facility] Comment on above: Expected: 04/08/2024, Expires: 5 Start: 04-05-2024 End: 07-05-2024 Basic metabolic 2000 panel - Serum or Plasma BASIC METABOLIC PANEL Lab Routine CKD (chronic kidney disease) stage 4, 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/min (HCC) Anemia, unspecified type Expected: 04/05/2024, Expires: 07/05/2024 [facility] Comment on above: Expected: 04/05/2024, Expires: 4 Start: 04-05-2024 End: 07-05-2024 CBC W Auto Differential panel - Blood COMPLETE BLOOD COUNT AND DIFFERENTIAL Lab Routine CKD (chronic kidney disease) stage 4, 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/min (HCC) Anemia, unspecified type Expected: 04/05/2024, Expires: 07/05/2024 [facility] Comment on above: Expected: 04/05/2024, Expires: 4 Start: 03-26-2024 End: 03-26-2024 Patient encounter procedure 03/26/2024 4:40 PM EDT Office Visit Family [facility] [address] [place] [address] Guanakito Reno MD [address] [facility] [place] [id number] 3 month f/u [facility] Comment on above: 3 month f/u Start: 03-26-2024 End: 06-25-2024 Basic metabolic 2000 panel - Serum or Plasma BASIC METABOLIC PANEL Lab Routine Renal insufficiency Expected: 03/26/2024, Expires: 06/25/2024 [facility] Comment on above: Expected: 03/26/2024, Expires: 4 Start: 03-26-2024 End: 03-26-2025 CBC W Auto Differential panel - Blood COMPLETE BLOOD COUNT AND DIFFERENTIAL Lab Routine Anemia, unspecified type Expected: 03/26/2024, Expires: 03/26/2025 [facility] Comment on above: Expected: 03/26/2024, Expires: Start: 03-26-2024 End: 03-26-2025 Cobalamin (Vitamin B12) [Mass/volume] in Serum or Plasma VITAMIN B12 Lab Routine Anemia, unspecified type Expected: 03/26/2024, Expires: 03/26/2025 [facility] Comment on above: Expected: 03/26/2024, Expires: Start: 03-26-2024 End: 03-26-2025 Ferritin [Mass/volume] in Serum or Plasma FERRITIN Lab Routine Anemia, unspecified type Expected: 03/26/2024, Expires: 03/26/2025 [facility] Comment on above: Expected: 03/26/2024, Expires: Start: 03-26-2024 End: 03-26-2025 Folate [Mass/volume] in Serum or Plasma FOLATE, SERUM Lab Routine Anemia, unspecified type Expected: 03/26/2024, Expires: 03/26/2025 [facility] Comment on above: Expected: 03/26/2024, Expires: Start: 03-26-2024 End: 06-25-2024 Hemoglobin A1c in Blood HEMOGLOBIN A1C Lab Routine Type 2 diabetes mellitus with stage 3 chronic kidney disease, without long-term current use of insulin, unspecified whether stage 3a or 3b CKD (HCC) Expected: 03/26/2024, Expires: 06/25/2024 [facility] Comment on above: Expected: 03/26/2024, Expires: 4 Start: 03-26-2024 End: 03-26-2025 Hemoglobin.gastrointestin al.lower [Presence] in Stool by Immunoassay IMMUNOCHEMICAL FECAL OCCULT BLOOD TEST Lab Routine Anemia, unspecified type Expected: 03/26/2024, Expires: 03/26/2025 [facility] Comment on above: Expected: 03/26/2024, Expires: Start: 03-26-2024 End: 03-26-2025 Iron and Iron binding capacity panel - Serum or Plasma IRON AND TIBC Lab Routine Anemia, unspecified type Expected: 03/26/2024, Expires: 03/26/2025 [facility] Comment on above: Expected: 03/26/2024, Expires: Start: 03-25-2024 End: 03-25-2024 Patient encounter procedure 03/25/2024 2:40 PM EDT Office Visit Cardiology [address] [phone] Pam Reddy MD [address] [facility], [address] [place] [address] 1 yr f/u Cardiology Comment on above: 1 yr f/u Start: 02-14-2024 BP CONTROLLED (<130/80) BP CONTROLLED (<130/80) [facility] Start: 02-13-2024 Hemoglobin A1c measurement HbA1C [facility] Start: 02-13-2024 Hemoglobin A1c/Hemoglobin.total in Blood HbA1C [facility] Start: 02-07-2024 3 comp foot exam completed DIABETIC FOOT EXAM [facility] Start: 02-07-2024 ANNUAL PCP TEAM CHRONIC DISEASE VISIT ANNUAL PCP TEAM CHRONIC DISEASE VISIT [facility] Start: 02-07-2024 BP CONTROLLED (<130/80) BP CONTROLLED (<130/80) [facility] Start: 02-07-2024 SHINGRIX VACCINE (1 of 2) SHINGRIX VACCINE (1 of 2) [facility] Comment on above: Postponed from 1993 (Insurance Cov erage) Start: 12-14-2023 Covid-19 Vaccine () Covid-19 Vaccine () [facility] Start: 10-16-2023 Advance Directive Discussion Advance Directive Discussion [facility] Start: 10-04-2023 BP CONTROLLED (<130/80) BP CONTROLLED (<130/80) [facility] Start: 08-15-2023 End: 08-15-2024 Basic metabolic 2000 panel - Serum or Plasma BASIC METABOLIC PNL Lab Routine Renal insufficiency Expected: 08/15/2023, Expires: 08/15/2024 [facility] Work Phone: Comment on above: Expected: 08/15/2023, Expires: 4 Start: 08-15-2023 BP CONTROLLED (<130/80) BP CONTROLLED (<130/80) [facility] Start: 08-15-2023 End: 11-14-2023 Urinalysis complete panel - Urine URINALYSIS, WITH MICROSCOPIC Lab Routine Renal insufficiency Expected: 08/15/2023, Expires: 11/14/2023 [facility] Work Phone: Comment on above: Expected: 08/15/2023, Expires: 4 Start: 06-16-2023 Covid-19 Vaccine () Covid-19 Vaccine () [facility] Start: 06-16-2023 Influenza vaccination [facility] Start: 06-08-2023 COVID-19 VACCINE (5 - Moderna series) COVID-19 VACCINE (5 - Moderna series) [facility] Start: 03-29-2023 BP CONTROLLED (<130/80) BP CONTROLLED (<130/80) [facility] Start: 02-20-2023 End: 02-14-2024 Echocardiography ECHO Cardiology Routine Syncope, unspecified syncope type Aortic valve disorder Expected: 02/20/2023, Expires: 02/14/2024 [facility] Work Phone: Comment on above: Expected: 02/20/2023, Expires: 4 Start: 02-06-2023 End: 04-08-2023 ALBUMIN/CREAT RATIO RND UR ALBUMIN/CREAT RATIO RND UR Lab Routine Type 2 diabetes mellitus with stage 3 chronic kidney disease, without long-term current use of insulin, unspecified whether stage 3a or 3b CKD (HCC) Expected: 02/06/2023, Expires: 04/08/2023 [facility] Work Phone: Comment on above: Expected: 02/06/2023, Expires: 3 Start: 02-06-2023 End: 04-08-2023 CBC W Auto Differential panel - Blood CBC + DIFF Lab Routine Type 2 diabetes mellitus with stage 3 chronic kidney disease, without long-term current use of insulin, unspecified whether stage 3a or 3b CKD (HCC) Expected: 02/06/2023, Expires: 04/08/2023 [facility] Work Phone: Comment on above: Expected: 02/06/2023, Expires: Start: 02-06-2023 End: 04-08-2023 Comprehensive metabolic 2000 panel - Serum or Plasma COMP METABOLIC PANEL Lab Routine Type 2 diabetes mellitus with stage 3 chronic kidney disease, without long-term current use of insulin, unspecified whether stage 3a or 3b CKD (HCC) Expected: 02/06/2023, Expires: 04/08/2023 [facility] Work Phone: Comment on above: Expected: 02/06/2023, Expires: 3 Start: 02-06-2023 End: 04-08-2023 Hemoglobin A1c in Blood HGB A1C Lab Routine Type 2 diabetes mellitus with stage 3 chronic kidney disease, without long-term current use of insulin, unspecified whether stage 3a or 3b CKD (HCC) Expected: 02/06/2023, Expires: 04/08/2023 [facility] Work Phone: Comment on above: Expected: 02/06/2023, Expires: 3 Start: 02-06-2023 End: 04-08-2023 Lipid 1996 panel - Serum or Plasma LIPID PANEL BASIC Lab Routine Type 2 diabetes 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 Start: 01-18-2023 HEMOGLOBIN/HEMATOCRIT HEMOGLOBIN/HEMATOCRIT [facility] Start: 01-18-2023 Hepatitis B screening URINE ALBUMIN:CREATININE RATIO [facility] Start: 01-18-2023 SERUM CREATININE SERUM CREATININE [facility] Start: 12-21-2022 Hepatitis B surface antibody level LDL CHOLESTEROL [facility] Start: 10-16-2022 ADVANCE DIRECTIVE DISCUSSION ADVANCE DIRECTIVE DISCUSSION [facility] Start: 08-22-2022 End: 08-15-2023 Echocardiography ECHO Cardiology Routine Nonrheumatic aortic valve stenosis Expected: 08/22/2022, Expires: 08/15/2023 [facility] Work Phone: Comment on above: Expected: 08/22/2022, Expires: 3 Start: 07-20-2022 Hemoglobin A1c/Hemoglobin.total in Blood HBA1C [facility] Start: 06-16-2022 Influenza vaccination [facility] Start: 04-12-2022 COVID-19 VACCINE (4 - Booster for Moderna series) COVID-19 VACCINE (4 - Booster for Moderna series) [facility] Start: 02-18-2022 End: 04-20-2022 Basic metabolic 2000 panel - Serum or Plasma BASIC METABOLIC PNL Lab Routine Essential hypertension with goal blood pressure less than 140/90 Expected: 02/18/2022, Expires: 04/20/2022 [facility] Work Phone: Comment on above: Expected: 02/18/2022, Expires: 2 Start: 02-07-2022 COVID-19 VACCINE (4 - Booster for Moderna series) COVID-19 VACCINE (4 - Booster for Moderna series) [facility] Start: 10-16-2021 ADVANCE DIRECTIVE DISCUSSION ADVANCE DIRECTIVE DISCUSSION [facility] Start: 01-18-2020 3 comp foot exam completed DIABETIC FOOT EXAM [facility] Start: 12-05-2019 Glaucoma screening Dilated Retinal Exam [facility] Start: 12-05-2019 Hepatitis C antibody, confirmatory test DILATED RETINAL EXAM [facility] Start: 2018 RSV Vaccine (1 - 1-dose 75+ series) RSV Vaccine (1 - 1-dose 75+ series) [facility] Start: 2003 Hepatitis B Vaccine (1 of 3 - Risk 3-dose series) Hepatitis B Vaccine (1 of 3 - Risk 3-dose series) [facility] Start: 1993 SHINGRIX VACCINE (1 of 2) SHINGRIX VACCINE (1 of 2) [facility] Start: 1961 BP Controlled (<130/80) BP Controlled (<130/80) [facility] in Start: 1961 HEPATITIS C SCREENING HEPATITIS C SCREENING [facility] Start: 1949 PNEUMOCOCCAL: 65+ (1 - PCV) PNEUMOCOCCAL: 65+ (1 - PCV) [facility] End: 08-09-2025 CTA Abdominal vessels and Pelvis vessels W contrast IV CTA ABD/PEL W IVCON Radiology Routine Nonrheumatic aortic valve stenosis Encounter for preprocedural cardiovascular examination 1 Occurrences starting 07/10/2024 until 08/09/2025 [facility] Work Phone: Comment on above: 1 Occurrences starting 07/10/2024 until 08/09/2025 End: 07-23-2024 CTA Abdominal vessels and Pelvis vessels W contrast IV [facility] Work Phone: Comment on above: 1 Occurrences starting 07/23/2024 until 07/23/2024 End: 08-09-2025 CTA Chest vessels WO and W contrast IV CTA CHEST (GATED) WO/W IVCON Radiology Routine Nonrheumatic aortic valve stenosis Encounter for preprocedural cardiovascular examination 1 Occurrences starting 07/10/2024 until 08/09/2025 [facility] Comment on above: 1 Occurrences starting 07/10/2024 until 08/09/2025 End: 07-23-2024 CTA Chest vessels WO and W contrast IV [facility] Comment on above: 1 Occurrences starting 07/23/2024 until 07/23/2024 ECG COMPLETE ECG COMPLETE ECG Routine Syncope, unspecified syncope type Aortic valve disorder Paroxysmal atrial fibrillation (HCC) Ordered: 03/21/2024 [facility] Work Phone: Comment on above: Ordered: 03/21/2024 End: 07-10-2025 EXTENDED WEAR DATA SCIENCES DIRECTOR PATCH EXTENDED WEAR DATA SCIENCES DIRECTOR PATCH ECG Routine Nonrheumatic aortic valve stenosis 1 Occurrences starting 07/10/2024 until 07/10/2025 [facility] Comment on above: 1 Occurrences starting 07/10/2024 until 07/10/2025 End: 07-10-2024 EXTENDED WEAR DATA SCIENCES DIRECTOR PATCH EXTENDED WEAR DATA SCIENCES DIRECTOR PATCH ECG Routine Nonrheumatic aortic valve stenosis 1 Occurrences starting 07/10/2024 until 07/10/2024 [facility] Work Phone: Comment on above: 1 Occurrences starting 07/10/2024 until 07/10/2024 Hemoglobin.tony velez alTituslower [Presence] in Stool by Immunoassay IMMUNOCHEMICAL FECAL OCCULT BLOOD TEST Lab Routine CKD (chronic kidney disease) stage 4, 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/min ([facility]) Anemia, unspecified type Ordered: 04/05/2024 [facility] Work Phone: Comment on above: Ordered: 04/05/2024 Hemoglobin.tony velez alTituslower [Presence] in Stool by Immunoassay IMMUNOCHEMICAL FECAL OCCULT BLOOD TEST Lab Routine Screen for colon cancer Ordered: 2024 [facility] Work Phone: Comment on above: Ordered: 2024 OUTSIDE VENDOR CARDI AC OUTPATIENT EXTENDED RHYTHM RECORDING (WITHOUT TELEMETRY) OUTSIDE VENDOR CARDIAC OUTPATIENT EXTENDED RHYTHM RECORDING (WITHOUT TELEMETRY) Holter Routine Syncope, unspecified syncope type Ordered: 02/13/2023 [facility] Work Phone: Comment on above: Ordered: 02/13/2023 Removal impacted cer umen irrigation/lvg unilat AMBULATORY EAR LAVAGE/IRRIGATION Procedures Routine Bilateral impacted cerumen Ordered: 01/21/2025 [facility] Comment on above: Ordered: 01/21/2025 End: 03-26-2025 US Carotid arteries - bilateral US CAROTID ARTERIES GRAY VAS LAB Vascular Lab Routine History of carotid endarterectomy 1 Occurrences starting 03/26/2024 until 03/26/2025 [facility] Work Phone: Comment on above: 1 Occurrences starting 03/26/2024 until 03/26/2025 End: 03-16-2023 US CAROTID ARTERIES GRAY VAS LAB US CAROTID ARTERIES GRAY VAS LAB Vascular Lab Routine Bilateral carotid artery stenosis 1 Occurrences starting 03/18/2022 until 03/16/2023 [facility] Work Phone: Comment on above: 1 Occurrences starting 03/18/2022 until 03/16/2023 End: 10-04-2023 US CAROTID ARTERIES GRAY VAS LAB US CAROTID ARTERIES GRAY VAS LAB Vascular Lab Routine Bilateral carotid artery stenosis 1 Occurrences starting 10/04/2022 until 10/04/2023 [facility] Work Phone: Comment on above: 1 Occurrences starting 10/04/2022 until 10/04/2023 End: 04-25-2025 US Kidney - bilateral and Urinary bladder US KIDNEY/BLADDER Radiology Routine Renal insufficiency 1 Occurrences starting 03/26/2024 until 04/25/2025 [facility] Comment on above: 1 Occurrences starting 03/26/2024 until 04/25/2025 [facility] Immunizations Immunization Date Immunization Notes Care Provider Pete page 07-12-2024 COVID-19 vaccine, ag e 12+ yr (PFIZER-BIONTECH COMIRNATY) Guanakito Reno MD Work Phone: [facility] 07-12-2024 influenza, high dose seasonal, preservative-free Guanakito Reno MD Work Phone: [facility] 07-12-2024 influenza virus vacc ine, unspecified formulation Guanakito Reno MD Work Phone: [facility] 08-14-2023 COVID-19 vaccine, ag e 12+ yr, season (PFIZER-BIONTECH) Guanakito Reno MD Work Phone: [facility] 08-14-2023 influenza (HD-IIV4) vaccine, age 65+ yr, high dose, quadrivalent, PF (FLUZONE HIGH-DOSE) Guanakito Reno MD Work Phone: [facility] 08-14-2023 influenza virus vacc ine, unspecified formulation Ruthie Denisemanuel [facility] 02-06-2023 COVID-19 vaccine, ag e 12+ yr, bivalent (PFIZER-BIONTECH) Guanakito Reno MD Work Phone: [facility] 12-13-2021 COVID-19 vaccine, ag e 12+ yr (PFIZER-BIONTECH - YANES TOP) Guanakito Reno MD Work Phone: [facility] 04-22-2021 tetanus and diphther ia toxoids, adsorbed, preservative free, for adult use (5 Lf of tetanus toxoid and 2 Lf of diphtheria toxoid) Guanakito Reno MD Work Phone: [facility] 02-16-2021 COVID-19 vaccine, fu ll dose (MODERNA) Guanakito Reno MD Work Phone: [facility] Work Phone: 01-19-2021 COVID-19 vaccine, fu ll dose (MODERNA) Guanakito Reno MD Work Phone: [facility] Work Phone: 07-18-2019 influenza, high dose seasonal, preservative-free Guanakito Reno MD Work Phone: [facility] Work Phone: 07-18-2019 influenza virus vacc ine, unspecified formulation Lizette Cardenas RN [facility] 09-15-2017 influenza, high dose seasonal, preservative-free Guanakito Reno MD Work Phone: [facility] 08-11-2016 influenza, high dose seasonal, preservative-free Guanakito Reno MD Work Phone: [facility] 08-11-2016 pneumococcal polysaccharide vaccine, 23 valent Guanakito Reno MD Work Phone: [facility] 08-10-2015 influenza, high dose seasonal, preservative-free Guanakito Reno MD Work Phone: [facility] 04-09-2015 pneumococcal conjuga te vaccine, 13 valent Guanakito Reno MD Work Phone: [facility] 10-21-2013 influenza virus vacc ine, unspecified formulation Guanakito Reno MD Work Phone: [facility] 08-08-2012 influenza virus vacc ine, unspecified formulation Guanakito Reno MD Work Phone: [facility] Work Phone: 10-12-2005 pneumococcal polysaccharide vaccine, 23 valent Guanakito Reno MD Work Phone: [facility] Work Phone: 12-02-2003 diphtheria and tetan us toxoids, adsorbed for pediatric use Guanakito Reno MD Work Phone: [facility] Work Phone: Payers Date Payer Category Payer Self-pay 2025 Unknown [id number] 2019 Medicare UHC AAR MEDICAR E [facility] MEDICARE O [id number] 2019-Present [phone] [address] [address] [place] [address] O [id number] 2019 Medicare UHC AAR MEDICAR E [facility] MEDICARE O [id number] 2019-Present [phone] [address] [address] [place] [address] O [id number] 2019 Medicare (Managed Care) UHC AARP MEDICARE HMO [id number] 2019 Medicare [id number] 2009 Unknown [id number] 2008 Medicare [id number] Medicare [id number] Unknown [id number] [id number]. 462 Unknown [id number] 2.840.1.322446.3.579.2. 462 Unknown [id number] 2.16840.1.988028.3.579.2. 462 Unknown [id number] 2.16840.1.876693.3.579.2. 462 Unknown [id number] 2.16840.1.744217.3.579.2. 462 Unknown [id number] 2.840.1.481167.3.579.2. 462 Unknown [id number] 2.840.1.971263.3.579.2. 462 Unknown [id number] 2.840.1.775738.3.579.2. 462 Unknown [id number] 2.840.1.759485.3.579.2. 462 Unknown [id number] 2.840.1.827663.3.579.2. 462 Unknown [id number] 2.840.1.116969.3.579.2. 462 Unknown [id number] 2.840.1.370270.3.579.2. 462 Unknown [id number] 2.840.1.723539.3.579.2. 462 Unknown [id number] 2.840.1.882597.3.579.2. 462 Unknown [id number] 2.840.1.421369.3.579.2. 462 Unknown [id number] 2.840.1.764522.3.579.2. 462 Unknown [id number] 2.840.1.750139.3.579.2. 462 Unknown [id number] 2.840.1.285505.3.579.2. 462 Unknown [id number] 2.840.1.058721.3.579.2. 462 Unknown [id number] 2.840.1.113673.3.579.2. 462 Unknown [id number] 2.840.1.805991.3.579.2. 462 Unknown [id number] 2.16840.1.622611.3.579.2. 462 Unknown [id number] 2.16.840.1.038052.3.579.2. 462 Unknown [id number] 2.16840.1.937134.3.579.2. 462 Unknown [id number] 2.840.1.266822.3.579.2. 462 Social History Date Type Detail Facility Start: 08-10-2015 End: 03-06-2025 Tobacco smoking status NHIS Ex-smoker [facility] Start: 12-05-1975 End: 12-05-1985 History of tobacco use Current smoker [facility] Start: 12-05-1975 End: 12-05-1985 History of tobacco use Cigarette Smoker [facility] Start: 01-19-2022 End: 03-06-2025 Alcohol intake Current non-drinker of alcohol (finding) [facility] Start: 10-26-2020 History SDOH Alcohol Frequency 1 [facility] Start: 10-26-2020 History SDOH Alcohol Std Drinks 98 [facility] Start: 05-15-2019 History SDOH Alcohol Comment none now; social in past [facility] Start: 10-26-2020 History SDOH Social Connections Get Together 2 [facility] Start: 10-26-2020 History SDOH Social Connections Living 4 [facility] Start: 10-26-2020 History SDOH Physica l Activity DPW 0 [facility] Start: 10-26-2020 History SDOH Financial 5 [facility] Start: 10-26-2020 Education 14 [facility] Start: 1945 Sex Assigned At Not on file [facility] Start: 01-09-2022 End: 08-15-2022 Exposure to SARS-CoV-2 (event) Not sure [facility] Start: 03-22-2022 End: 04-01-2022 Exposure to SARS-CoV-2 (event) Unable to assess [facility] Work Phone: Start: 08-10-2015 End: 04-11-2023 Cigarettes smoked current (pack per day) - Reported 2 [facility] Start: 08-10-2015 End: 06-05-2024 Tobacco use and exposure Smokeless tobacco non-user [facility] Start: 10-26-2020 End: 04-11-2023 Social connection and isolation panel [facility] Do you belong to any clubs or organizations such as yazidism groups, unions, fraternal or athletic groups, or school groups? No [facility] Are you now , , , , never or living with a partner? [facility] How often to you hav e a drink containing alcohol? Never [facility] How many standard dr inks containing alcohol do you have on a typical day? Patient refused [facility] Do you feel stress - tense, restless, nervous, or anxious, or unable to sleep at night because your mind is troubled all the time - these days [OSQ] Only a little [facility] (I/We) worried vannesa er (my/our) food would run out before (I/we) got money to buy more. Never true [facility] Start: 1945 Sex Assigned At Male W [facility] Medical Equipment Procedure Code Equipment Code Equipment Origin al Text Equipment Identifier Dates [id number], [id number] Start: 11-11-2011 Comment on above: Test blood sugar(s) one times daily. Dx: 250.00. Insulin: No Test blood sugar(s) one time daily. Dx: 250.00. Insulin: No Goals Date Patient Goal Desired Activity /State Personal health goal Functional Status Date Assessment Result Facility 04-09-2015 Are you deaf, or do you have serious difficulty hearing No 04/09/2015 11:20 AM Stephany Welch MA No [facility] 04-09-2015 Are you blind, or do you have serious difficulty seeing, even when wearing glasses No 04/09/2015 11:20 AM Stephany Welch MA No [facility] 04-09-2015 Do you have serious difficulty walking or climbing stairs No 04/09/2015 11:20 AM Stephany Welch MA No [facility] 04-09-2015 Do you have difficul ty dressing or bathing No 04/09/2015 11:20 AM Stephany Welch MA No [facility] 04-09-2015 Because of a physica l, mental, or emotional condition, do you have difficulty doing errands alone such as visiting a physician's office or shopping No 04/09/2015 11:20 AM EDT Stephany Graves MA No [facility] Mental Status Date Assessment Result Facility 04-09-2015 Because of a physica l, mental, or emotional condition, do you have serious difficulty concentrating, remembering, or making decisions No 04/09/2015 11:20 AM EDT Stephany Graves MA No [facility] Clinical Notes 03-29-2011 to 04-15-2025 Telephone Encounter - [facility] - 04/15/2025 9:09 AM EDTTelephone Encounter - [facility] - 04/15/2025 9:09 AM EDTTelephone Encounter - Leidy Malone RN - 04/14/2025 3:18 PM EDT Note Date & Type Note Facility 04-15-2025 Telephone encount er Note [facility] Anticoagulation Episode Summary Anticoagulation Care Providers Provider Role Specialty Phone number Guanakito Reno MD [facility] [phone] Cal Mitchell is a 79 year old [...] Pharmacy Anticoagulation Clinic [facility] Pager: [phone]. [facility] 04-15-2025 Miscellaneous Notes Formattin g of this note is different from the original. [facility] Anticoagulation Episode Summary Anticoagulation Care Providers Provider Role Specialty Phone number Guanakito Reno MD [facility] [phone] Cal Mitchell is a 79 year old [...] Pharmacy Anticoagulation Clinic [facility] Pager: [phone]. documented in this encounter [facility] 04-14-2025 Telephone encount er Note Gustavo calls back and notified of provider recommendation below. Voices understanding. Leidy Malone RN [facility] 04-14-2025 Miscellaneous Notes Formattin g [...] him? Please advise documented in this encounter [facility] 04-14-2025 Telephone encount er Note Phoned Gustavo left message to return call and ask to speak to a nurse. [facility] 04-14-2025 Telephone encount er Note yes [facility] 04-14-2025 Telephone encount er Note Patient son in law Chen calling he has been giving the patient Tylenol 500 mg two tablets twice daily since his fracture right shoulder at almost the end of February. He is asking if it is alright that they are still giving it to him? Please advise [facility] 04-08-2025 Telephone encount er Note The following approved medication requests have been transmitted electronically. Requested Prescriptions Pending Prescriptions Disp Refills warfarin (COUMADIN) 5 mg tablet 90 tablet 3 Sig: Take 1 tablet by mouth once daily. warfarin (COUMADIN) 5 mg tablet 30 tablet 0 Sig: Take 1 tablet by mouth once daily. Carolina Landeros APRN.CNP [facility] 04-08-2025 Miscellaneous Notes Formattin g [...] 2025 2:33 PM documented in this encounter [facility] 04-08-2025 Telephone encount er Note [...] Meyer LPN April 08, 2025 2:38 PM [facility] 04-08-2025 Miscellaneous Notes Formattin g [...] 2025 2:38 PM documented in this encounter [facility] 04-08-2025 Telephone encount er Note [...] Meyer LPN April 08, 2025 2:33 PM [facility] 04-08-2025 Evaluation note Diagnosis Hypertensive kidney disease with stage 3 chronic kidney disease, unspecified whether stage 3a or 3b CKD (HCC) Type 2 diabetes mellitus with stage 3 chronic kidney disease, without long-term current use of insulin, unspecified whether stage 3a or 3b CKD (HCC) Chronic renal disease, stage IV (HCC) Chronic kidney disease, Stage IV (severe) documented in this encounter [facility]06-13-2025 Telephone encounter Note* Telephone Encounter - Niels Rodriges RN - 03/28/2025 1:04 PM EDT Faxed recent ov notes to [facility] per daughter, January request. . January reports she talked to [facility] about patient going to live there and [facility] instructed her to have pcp office send an H & P to them for review. [facility]06-13-2025 Miscellaneous Notes* Telephone Encounter - Niels Rodriges RN - 03/28/2025 1:04 PM EDT Faxed recent ov notes to [facility] per daughter, January request. . January reports she talked to [facility] about patient going to live there and [facility] instructed her to have pcp office send an H & P to them for review. [facility] Telephone encounter Note * Telephone Encounter - Alejandro Molina RPh - 03/24/2025 10:57 AM EDT [facility] Pharm[facility] Anticoagulation Clinic Anticoagulation Episode Summary Anticoagulation Care Providers Provider Role Specialty Phone number Guanakito Reno MD [facility] [phone] Cal Mitchell is a 79 year old [...] instructed to call [facility] at [phone] with any questionsor concerns. Alejandro Molina RPh Clinical Pharmacist, Pharmacy Anticoagulation Clinic [facility] Pager: [phone] [facility]06-09-2025 Miscellaneous Notes* Telephone Encounter - Alejandro Molina RPh - 03/24/2025 10:57 AM EDT [facility]tico[facility] Anticoagulation Episode Summary Anticoagulation Care Providers Provider Role Specialty Phone number Guanakito Reno MD [facility] [phone] Cal Mitchell is a 79 year old [...] instructed to call [facility] at [phone] with any questionsor concerns. Alejandro Molina RP Clinical Pharmacist, Pharmacy Anticoagulation Clinic [facility] Pager: [phone] documented [facility] Evaluation note* Diagnosis Onset Date Resolution Status Admit Date Closed fracture of right pro ximal humerus acute March 07, 2025 1 2:49pm [facility] Work Phone: 1(350) 796-462305-23-2025 Evaluation note* Diagnosis Onset Date Resolution Status Admit Date Closed fracture of right proximal humerus acute March 07, 2025 12:49pm Closed fracture of right proximal humerus acute May 02, 2025 10:11am [facility] Work Phone: 1(403) 228-286505-22-2025 NoteHNO ID: [id number] Author: CAROLINA LANDEROS APRN.KOURTNEY Service: ? Author [...] and 9-10/10 with movement. - Currently taking [place] for pain management. - Denies pain elsewhere [...] 250.00. Insulin: No Lancets (ONE TOUCH DELICA) [facility] lancets Test blood sugar(s) one [...] in a sl (more content not included)... 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 [facility]05-08-2025 Miscellaneous Notes* Telephone Encounter - Jimmy Carrizales RPh - 02/20/2025 8:59 AM EDT [facility] Anticoagulation Episode Summary Anticoagulation Care Providers Provider Role Specialty Phone number Guanakito Reno MD [facility] [phone] Cal Mitchell is a 79 year old [...] missed any doses of warfarin. Jimmy Carrizales [facility] Clinical Pharmacist, Pharmacy Anticoagulation Clinic Pharmacy An[facility] Clinic Pager: [phone]. [facility]25 Telephone encounter Note * Telephone Encounter - Kamran Ayon RPh - 01/31/2025 12:43 PM EDT [facility]tico[facility] Anticoagulation Episode Summary Anticoagulation Care Providers Provider Role Specialty Phone number Guanakito Reno MD [facility] [phone] Cal Mitchell is a 79 year old [...] missed any doses of warfarin. Kamran Ayon [facility] Clinical Pharmacist, Pharmacy Anticoagulation Clinic Pharmacy Antico[facility] Clinic Pager: [phone]. 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 [facility] Progress note* Result Encounter Note [...] levels, magnesium, and B12 are all normal. [facility]04-10-2025 Miscellaneous Notes* Result Encounter Note [...] B12 are all normal. documented in [facility] encounterMartin [facility]04-08-2025 NoteHNO ID: [id number] Author: GEOVANNA HINDS MA Service: ? Author Type: Systems Integration Manager Type: Progress Notes Filed: 01/21/2025 17:08 [...] Geovanna Hinds MA January 21, 2025 5:08 [facility]04-08-2025 History of Present illness Narrative* Geovanna [...] taking lisinopril Monitors bp at home: Yes. [place] checks it, ok there Denies side effects: [...] No oropharyngeal exudate. Eyes: Comments: Conjunctiva gray. [place] and itchy Cardiovascular: Rate and Rhythm: Normal [...] MG TABLET - COMPREHENSIVE METABOLIC PANEL 12. 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 - ICD9: V58.61, [...] \ Carolina Landeros APRN.CNP documented in this encounterMartin [facility] Hospital04-08-2025 Note* Addendum Note - Carolina Landeros APRN.CNP - 01/21/2025 4:54 PM EDTAddended by: CAROLINA LANDEROS on: 01/21/2025 04:54 PM Modules accepted: Orders [facility]04-08-2025 Miscellaneous Notes* Addendum Note - Carolina Landeros APRN.CNP - 01/21/2025 4:54 PM EDTAddended by: CAROLINA LANDEROS on: 01/21/2025 04:54 PM Modules accepted: Orders * Addendum Note - Geovanna Hinds MA - 01/21/2025 4:33 PM EDTAddended by: GEOVANNA HINDS on: 01/21/2025 04:33 PM Modules accepted: Orders documented in this encounterMartin Memorial Hospital04-08-2025 Note* Addendum Note - Geovanna Hinds MA - 01/21/2025 4:33 PM EDTAddended by: GEOVANNA HINDS on: 01/21/2025 04:33 PM Modules accepted: Orders [facility]04-08-2025 Instructions* Patient Instructions* Carolina Landeros [...] up in 6 months documented in this encounterMartin Memorial Hospital04-08-2025 NoteHNO ID: [id number] Author: CAROLINA LANDEROS APRN.CNP Service: ? Author [...] taking lisinopril Monitors bp at home: Yes. [place] checks it, ok there Denies side effects: [...] Drug use: No EXAM: (more content not included)...[facility]03-26-2025 Miscellaneous Notes* Telephone Encounter - Josselyn [...] 08, 2025 2:53 PM documented in this encounterMartin Memorial Hospital03-26-2025 Telephone encounter Note * Telephone [...] Barrow LPN January 08, 2025 2:53 PM [facility]03-26-2025 Telephone encounter Note* Telephone Encounter - Ruthie Cuevas RPh - 01/08/2025 8:51 AM EDT [facility] Anticoagulation Episode Summary Anticoagulation Care Providers Provider Role Specialty Phone number Guanakito Reno MD [facility] Family Medicine [phone] Cal Mitchell is a 79 year old [...] Pharmacy Anticoagulation Clinic Pharmacy Anticoagulation Clinic Pager: [phone]. [facility]03-26-2025 Miscellaneous Notes* Telephone Encounter - Ruthie Cuevas RPh - 01/08/2025 8:51 AM EDT [facility] Anticoagulation Episode Summary Anticoagulation Care Providers Provider Role Specialty Phone number Guanakito Reno MD [facility] [phone] Cal Mitchell is a 79 year old [...] Pharmacy Anticoagulation Clinic Pharmacy Anticoagulation Clinic Pager: [phone]. documented in this encounterMartin Memorial Hospital03-26-2025 Evaluation note* Diagnosis Hypertensive kidney disease with stage 3 chronic kidney disease, unspecified whether stage 3a or 3b CKD (HCC) documented in this encounter [facility]03-17-2025 Telephone encounter Note* Telephone Encounter - Octavio (Automotive Machinist Apprentice)Ruben - 12/30/2024 9:15 AM EDT Roscoe'larry called regarding INR result for patient. Result has been addressed below, no further action needed. Ruben Cunningham Dye Penetrant Testing Technician (Ubaldo) Pharmacy Anticoagulation Clinic [facility]03-17-2025 Miscellaneous Notes* Telephone Encounter - Octavio (Automotive Machinist ApprenticeRuben Granados - 12/30/2024 9:15 AM EDT De called regarding INR result for patient. Result has been addressed below, no further action needed. Ruben Cunningham Dye Penetrant Testing Technician (last marker) Pharmacy Anticoagulation Clinic * Telephone Encounter - Twin Cole RPh - 12/30/2024 9:12 AM EDT [facility] Anticoagulation Episode Summary Anticoagulation Care Providers Provider Role Specialty Phone number Guanakito Reno MD [facility] [phone] Cal Mitchell is a 79 year old [...] Pharmacy Anticoagulation Clinic Pharmacy Anticoagulation Clinic Pager: [phone]. documented in this encounterMartin Memorial Hospital03-17-2025 Telephone encounter Note * Telephone Encounter - Twin Cole RPh - 12/30/2024 9:12 AM EDT [facility] Anticoagulation Episode Summary Anticoagulation Care Providers Provider Role Specialty Phone number Guanakito Reno MD [facility] [phone] Cal Mitchell is a 79 year old [...] Pharmacy Anticoagulation Clinic Pharmacy Anticoagulation Clinic Pager: [phone]. [facility]02-[facility] Telephone encounter Note* Telephone Encounter - Jimmy Carrizales [facility] - 12/11/2024 9:43 AM EST [facility] Anticoagulation Episode Summary Anticoagulation Care Providers Provider Role Specialty Phone number Guanakito Reno MD [facility] Family Medicine [phone] Cal Mitchell is a 79 year old [...] Pharmacy Anticoagulation Clinic Pharmacy Anticoagulation Clinic Pager: [phone]. 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 Jimmy Carrizales [facility] Clinical Pharmacist, Pharmacy Anticoagulation Clinic Pharmacy Anticoagulation Clinic Pager: [phone]. documented in this encounterMartin Memorial Hospital02-11-2025 Telephone encounter Note * Telephone Encounter - Twin Cole [facility] - 11/26/2024 5:26 PM EST [facility] Anticoagulation Episode Summary Anticoagulation Care Providers Provider Role Specialty Phone number Guanakito Reno MD [facility] [phone] Cal Mitchell is a 79 year old [...] Pharmacy Anticoagulation Clinic Pharmacy Anticoagulation Clinic Pager: [phone]. [facility]02-[facility] Miscellaneous Notes* Telephone Encounter - Twin Cole RPh - 11/26/2024 5:26 PM EST [facility] Anticoagulation Episode Summary Anticoagulation Care Providers Provider Role Specialty Phone number Guanakito Reno MD [facility] Medicine [phone] Cal Mitchell is a 79 year old [...] Pharmacy Anticoagulation Clinic Pharmacy Anticoagulation Clinic Pager: [phone]. documented in this encounterMartin Memorial Hospital01-13-2025 Telephone encounter Note * Telephone Encounter - Alejandro Molina RPh - 10/28/2024 5:06 PM EST [facility] Anticoagulation Episode Summary Anticoagulation Care Providers Provider Role Specialty Phone number Guanakito Reno MD [facility] Family Medicine [phone] Cal Mitchell is a 79 year old [...] instructed to call [facility] at [phone] with any questionsor concerns. Alejandro Molina [facility] Clinical Pharmacist, Pharmacy Anticoagulation Clinic Pharmacy Anticoagulation Clinic Pager: [phone] [facility]01-13-[facility] Miscellaneous Notes* Telephone Encounter - Alejandro Mloina RPh - 10/28/2024 5:06 PM EST [facility] Anticoagulation Episode Summary Anticoagulation Care Providers Provider Role Specialty Phone number Guanakito Reno MD [facility] Family Medicine [phone] Cal Mitchell is a 79 year old [...] instructed to call [facility] at [phone] with any questionsor concerns. Alejandro Molina RPh Clinical Pharmacist, Pharmacy Anticoagulation Clinic Pharmacy Anticoagulation Clinic Pager: [phone] documented in this encounterMartin Memorial Hospital01-06-2025 Telephone encounter Note * Telephone Encounter - Ashley De Dios RN - 10/21/2024 2:58 PM EST Pt ALEC Chen called and is notified of providers message. He voices understanding. Ashley De Dios RN [facility]01-06-2025 Miscellaneous Notes* Telephone Encounter - [...] Please call and advise. documented in this encounterMartin Memorial Hospital01-06-2025 Telephone encounter Note * Telephone Encounter - Guanakito Reno MD - 10/21/2024 2:25 PM EST agree [facility]01-06-[facility] Telephone encounter Note* Telephone Encounter - Ashley De Dios RN - 10/21/2024 2:01 PM EST Pts ALCE Chen called and is notified of providers [...] to the Pt. Ashley De Dios RN [facility]01-06-2025 Telephone encounter Note* Telephone Encounter - Guanakito Reno MD - 10/21/2024 1:55 PM EST Can try mucinex otc. Call if symptoms worsen at all or if not better in one to two weeks [facility]01-06-[facility] Telephone encounter Note* Telephone Encounter [...] him for Covid. Please call and advise. [facility]12-17-[facility]24 Telephone encounter Note* Telephone Encounter - Twin Cole [facility] - 10/01/2024 9:37 AM EST [facility] Anticoagulation Episode Summary Anticoagulation Care Providers Provider Role Specialty Phone number Guanakito Reno MD [facility] Family Medicine [phone] Cal Mitchell is a 79 year old [...] Pharmacy Anticoagulation Clinic Pharmacy Anticoagulation Clinic Pager: [phone]. [facility]12-17-[facility] Miscellaneous Notes* Telephone Encounter - Twin Cole RPh - 10/01/2024 9:37 AM EST [facility] Anticoagulation Episode Summary Anticoagulation Care Providers Provider Role Specialty Phone number Guanakito Reno MD [facility] [phone] Cal Mitchell is a 79 year old [...] Pharmacy Anticoagulation Clinic Pharmacy Anticoagulation Clinic Pager: [phone]. documented in this encounterMartin Memorial Hospital11-11-2024 Telephone encounter Note * Telephone Encounter - Alejandro Molina RPh - 08/26/2024 6:35 AM EST [facility] Anticoagulation Episode Summary Anticoagulation Care Providers Provider Role Specialty Phone number Guanakito Reno MD [facility] Medicine [phone] Cal Mitchell is a 79 year old [...] warfarin instructions: 5 mg every day Sent [facility] message Advised patient to continue current weekly dose as noted above Next INR check due on 09/09/2024 Alejandro Molina RPh Clinical Pharmacist, Pharmacy Anticoagulation Clinic Pharmacy Anticoagulation Clinic Pager: [phone]. [facility]11-[facility] Miscellaneous Notes* Telephone Encounter - Alejandro Molina RPh - 08/26/2024 6:35 AM EST [facility] Anticoagulation Episode Summary Anticoagulation Care Providers Provider Role Specialty Phone number Guanakito Reno MD [facility] [phone] Cal Mitchell is a 79 year old [...] warfarin instructions: 5 mg every day Sent [facility] message Advised patient to continue current weekly dose as noted above Next INR check due on 09/09/2024 Alejandro Molina RPh Clinical Pharmacist, Pharmacy Anticoagulation Clinic Pharmacy Anticoagulation Clinic Pager: [phone]. documented in this encounterMartin Memorial Hospital11-04-2024 NoteHNO ID: [id number] Author: MELANIA GALINDO RN Service: ? Author Type: Registered Nurse Type: Progress Notes Filed: 08/19/2024 12:55 Note Text: Summary: Medication Adherence Review per Request of Payor ACM LUIS RN Reason for review or outreach: Medication Adherence Review Details: Cholesterol FYI/REQUESTED ACTION: Summary / Findings: Atorvastatin was due for refill on/before 08.09.24. Sent [employer] reminder 08.15.24- not read Called patient Patient identified by name and date of . Patient Attributed To: QAE Payer: [employer] Action Taken: Data submitted to Payer Contact made with patient: No, Left message BENJIE Schreiber RNBl[facility]ard [facility]11-[facility] History of Present illness Narrative* Melania Galindo RN - 08/19/2024 12:51 PM ESTSummary: Medication Adherence Review per Request of Payor ACM LUIS RN Reason for review or outreach: Medication Adherence Review Details: Cholesterol FYI/REQUESTED ACTION: Summary / Findings: Atorvastatin was due for refill on/before 08.09.24. Sent [employer]OO[employer]IM[employer] reminder 08.15.24- not read Called patient Patient identified by name and date of . Patient Attributed To: QAE Payer: [employer] Action Taken: Data submitted to Payer Contact made with patient: No, Left message BENJIE Schreiber RN documented in this encounterMartin Memorial Hospital11-04-2024 NotePatient Outreach ([facility]) PAULACAL Lua ([id number]) 1945 M Date Time Provider Department 08/19/24 MELANIA GALINDO During your visit today, we recorded the following information about you: Melania Galindo RN 08/19/2024 12:55 PM Signed ACM LUIS RN Reason for review or outreach: Medication Adherence Review Details: Cholesterol FYI/REQUESTED ACTION: Summary / Findings: Atorvastatin was due for refill on/before 08.09.24. Sent [facility] reminder 08.15.24- not read Called patient Patient identified by name and date of . Patient Attributed To: [facility] Payer: [facility] Action Taken: Data submitted to Payer [...] hours as needed. - blood sugar diagnostic (GlobitelTOUCH ULTRA TEST) test strip Test blood sugar(s) one times daily. Dx: 250.00. Insulin: No - Lancets (ONE TOUCH DELICA) 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 Cannot tell this Nurse what he is taking and not takiing at this time. Carolin Cantu LPN August 06, 2024 1:29 PM [facility]10-22-[facility] Nurse Note* Carolin Cantu LPN - 08/06/2024 1:28 PM EDT Patient not a good historian of medications. Cannot tell this Nurse what he is taking and not takiing at this time. Carolin Cantu LPN August 06, 2024 1:29 PM documented in this encounterMartin Memorial Hospital10-22-2024 History of Present illness Narrative* Laura Iraheta MD - 08/06/2024 1:25 PM EDT Images from the original note were not included. [facility] , V[facility] Thor[facility] [place] DEPARTMENT OF VASCULAR SURGERY OUTPATIENT VISIT DATE [...] 250.00. Insulin: No Lancets (ONE TOUCH DELICA) [facility] lancets Test blood sugar(s) one time daily. Dx: 250.00. Insulin: No ALLERGIES: ALLERGIES No Known Allergies REVIEW OF SYSTEM: Constitutional: No weight loss, malaise or fevers. Respiratory: Negative for SOB Cardiovascular: Negative for chest pain or recent [place] Gatrointestinal: Negative for abdominal discomfort Genitourinary: Negative [...] 2024 TIME: 4:41 PM documented in this encounterMartin Memorial Hospital10-17-2024 Telephone encounter Note * Telephone Encounter - Josselyn Mayer APRN.CNP - 08/01/2024 9:56 AM EDT I spoke with Gustavo and communicated recommendations of medical therapy. He reports patient also expressed wanting to continue without any further intervention. Patient and family agreeable to plan. Josselyn Mayer APRN.CNP [facility]10-17-2024 Miscellaneous Notes* Telephone Encounter - [...] Gustavo calls requesting a return call at [phone]. Chely Nicolas RN * Telephone Encounter - Josselyn Mayer APRN.CNP - 07/30/2024 10:34 AM EDT Attempted to contact patient and his family to update him on the treatment plan. Left voicemail requesting phone call back. Josselyn Mayer APRN.CNP documented in this encounterMartin Memorial Hospital10-16-2024 Telephone encounter Note * Telephone Encounter - Chely Nicolas RN - 07/31/2024 3:53 PM EDT Gustavo calls requesting a return call at [phone]. Chely Nicolas RN [facility]10-15-2024 History of Present illness Narrative* Josselyn [...] Josselyn Mayer APRN.CNP 07/30/2024 documented in this encounterMartin Memorial Hospital10-15-2024 Telephone encounter Note * Telephone Encounter - Josselyn Mayer APRN.CNP - 07/30/2024 10:34 AM EDT Attempted to contact patient and his family to update him on the treatment plan. Left voicemail requesting phone call back. Josselyn Mayer APRN.CNP [facility]10-11-2024 Telephone encounter Note* Telephone Encounter [...] to test INR. Kamran Ayon PharmD, BCPS [facility]10-11-2024 Miscellaneous Notes* Telephone Encounter - Kamran Ayon RPh - 07/26/2024 4:22 PM EDT Images from the original note were not included. Called and left voice message for daughter January asking her to return call to Pharmacy Anticoagulation Clinic to discuss if Lovenox was started for patient. Josselyn Mayer APRN.CAR SHAKEOUT OPERATOR Chely Nicolas, RNYester (2:01 PM) I sent 8 syringes [...] BCPS * Telephone Encounter - Jimmy Carrizales [facility] - 07/25/2024 11:45 AM EDT Left voice message asking patient at [phone] (home) or daughter January to call the Anticoagulation Clinic at [phone] re: patient recenly off warfarin for heart cath on 07/23/24. Patient was prescribed Lovenox 100 mg sq Once daily by cardiology. Next Action for Anti coag Management: TM Remote Jimmy Carrizales PharmD., CACP documented in this encounterMartin Memorial Hospital10-10-2024 Telephone encounter Note * Telephone Encounter - Jimmy Carrizales [facility] - 07/25/2024 11:45 AM EDT Left voice message asking patient at [phone] (home) or daughter January to call the Anticoagulation Clinic at [phone] re: patient recenly off warfarin for heart cath on 07/23/24. Patient was prescribed Lovenox 100 mg sq Once daily by cardiology. Next Action for Anti coag Management: TM Remote Jimmy Carrizales PharmD., CACP [facility]10-08-2024 History of Present illness Narrative* Victoria [...] PATIENT PRESENTS WITH AN IMPLANTABLE OR ATTACHED SURGICAL TECHNICIAN: No ALLERGIES: Reviewed and unchanged CONTRAST ALLERGY: [...] 2024 TIME: 9:13 AM documented in this encounterMartin Memorial Hospital09-30-2024 Telephone encounter Note * Telephone Encounter - Josselyn Barrow LPN - 07/15/2024 3:19 PM EDT Notified Gustavo. [facility]09-30-2024 Miscellaneous Notes* Telephone Encounter - [...] proceeding. Teresa Alexis RN documented in this encounterMartin Memorial Hospital09-30-2024 Telephone encounter Note * Telephone Encounter - Magdalena Laird LPN - 07/15/2024 3:15 PM EDT Son notified of results and provider message. Magdalena Laird LPN [facility]09-30-2024 Miscellaneous Notes* Telephone Encounter - [...] does off of meds. documented in this encounterMartin Memorial Hospital09-30-2024 Telephone encounter Note * Telephone Encounter - Guanakito Reno MD - 07/15/2024 2:40 PM EDT Agree. As long as he is aware. [facility]09-30-2024 Telephone encounter Note* Telephone Encounter [...] like PCP recommendationbefore proceeding. Teresa Alexis RN [facility]09-30-2024 Telephone encounter Note* Telephone Encounter - Carolina Alba MA - 07/15/2024 2:14 PM EDT Message left for return call. Carolina Alba MA [facility]09-30-2024 Telephone encounter Note* Telephone Encounter - Guanakito Reno MD - 07/15/2024 1:04 PM EDT Kidney function and anemia are stable. See nephrology as we had recommended. Sugars are overall notbad. Hold on amaryl. Call sugars in two weeks to see how he does off of meds. [facility]09-30-20[facility] History of Present illness Narrative* Guanakito Reno MD - 07/15/2024 8:03 AM EDT Apparently second visit created in error. documented in this encounterMartin Memorial Hospital09-27-2024 Telephone encounter Note * Telephone Encounter - Guanakito Reno MD - 07/12/2024 12:49 PM EDT Noted. Thank you [facility]09-27-2024 Miscellaneous Notes* Telephone Encounter - Guanakito Reno MD - 07/12/2024 12:49 PM EDT Noted. Thank you * Telephone Encounter - Art Estes - 07/12/2024 12:34 PM EDT Attempted to find sooner apt time for patients nephrology apt, no sooner times within [facility] facilities that are faster than patients [facility] apt. documented in this encounterMartin Memorial Hospital09-27-2024 Telephone encounter Note * Telephone Encounter - Art Estes - 07/12/2024 12:34 PM EDT Attempted to find sooner apt time for patients nephrology apt, no sooner times within [facility] facilities that are faster than patients [facility] apt. [facility]09-27-20[facility] History of Present illness Narrative* Guanakito [...] or worsening shortness of breath. Currently wearing MOOVIA heart monitor. Placed yesterday. Follows with Cardiology. [...] 250.00. Insulin: No Lancets (ONE TOUCH DELICA) [facility] lancets Test blood sugar(s) one [...] Stable. Guanakito Reno MD documented in this encounterMartin Memorial Hospital09-25-2024 History of Present illness Narrative* Pam Reddy MD - 07/10/2024 3:07 PM EDT Images from the original note were not included. Pam Reddy MD Interventional Cardiology [address] [place] [address] Chief Complaint Patient presents with: Aortic Stenosis: [...] with significant dementia. Patient follow-up at the [place] office 6 months ago he was completely [...] CTA CHEST (GATED) WO/W IVCON - CARDIAC TRADER ORDER - EXTENDED WEAR DATA SCIENCES DIRECTOR PATCH - COMPLETE BLOOD COUNT - BASIC [...] to correct any errors. * Josselyn Mayer APRN.CAR SHAKEOUT OPERATOR - 07/10/2024 9:39 AM EDT Procedure Type: Isolated AVR Perioperative Outcome Estimate % Operative Mortality 9.12% Morbidity & Mortality 21.6% Stroke 2% Renal Failure 20.9% Reoperation 5.43% Prolonged Ventilation 9.19% Deep Sternal Wound Infection 0.103% Long Hospital Stay (>14 days) 13.4% Short Hospital Stay (<6 days)* 15.7% Josselyn Mayer APRN.CAR SHAKEOUT OPERATOR * Carolin Cantu LPN - 07/10/2024 8:03 AM EDT CARDIAC REHAB 5 METER WALK TEST SERVICE DATE: 07/10/2024 SERVICE TIME: 8:05AM (Patient used his cane for mobile stability during his 5 Meter Walk Test.) 11.00sec 10.58sec 10.59sec ASSESSMENT: SIGNATURE: Carolin Cantu LPN PATIENT NAME: Cal Mitchell DATE: July 10, 2024 TIME: 8:06 AM PAGER/CONTACT #: [phone] documented in this encounterMartin Memorial Hospital09-25-2024 Nurse Note* Judy Magana Performance Specialist - 07/10/2024 10:00 AM EDT Applied 14 day extended wear EKG patch. Pt verbalized understanding of monitor use / diary. [facility]09-25-2024 Nurse Note* Judy Magana Performance Specialist - 07/10/2024 10:00 AM EDT Applied 14 day extended wear EKG patch. Pt verbalized understanding of monitor use / diary. documented in this encounterMartin Memorial Hospital09-25-2024 Instructions* Patient Instructions* Josselyn Mayer APRN.CAR SHAKEOUT OPERATOR - 07/10/2024 8:55 AM EDT Images from [...] process is complete. The content on the [employer] website is not intended nor recommended as a substitute for medical advice, diagnosis, or treatment. Always seek the advice of your own physician or other qualified healthcare professional regarding any medical questions or conditions.. 2016 [employer]. All rights reserved. Topic 11638 Version 5.0 documented in this encounterMartin Memorial Hospital09-25-2024 History of Present illness Narrative* Cal Mondragon MD - 07/10/2024 8:37 AM EDT PRIMARY CARE PHYSICIAN: Guanakito Reno [address] [place] [address] Subjective Chief Complaint Patient presents with: Aortic [...] also refer to vascular surgery and a dentofacial orthopedics dentist for further evaluation. 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 [facility]09[facility] Miscellaneous Notes* Telephone Encounter - Jimmy Carrizales RPh - 06/18/2024 8:39 AM EDT [facility] Anticoagulation Episode Summary Anticoagulation Care Providers Provider Role Specialty Phone number Guanakito Reno MD [facility] [phone] Cal Mitchell is a 78 year old [...] Pharmacy Anticoagulation Clinic Pharmacy Anticoagulation Clinic Pager: [phone]. documented in this encounterMartin Memorial Hospital08-22-2024 Instructions* Patient Instructions* Carolina Landeros APRN.CNP - 06/06/2024 12:10 PM EDT 1) Stop Actos 2) Stop melatonin 3) Try to increase protein 4) Follow up in 1 months documented in this encounterMartin Memorial Hospital08-22-2024 History of Present illness Narrative* Carolina [...] cardiovascular system 10/20: Peripheral vascular disease, unspecified ([facility]) Comment: R carotid 04/18: Unspecified [...] 250.00. Insulin: No Lancets (ONE TOUCH DELICA) [facility] lancets Test blood sugar(s) one [...] as needed for worsening/no improvement. Carolina Landeros APRN.KOUTRNEY documented in this encounterMartin Memorial Hospital08-21-2024 Telephone encounter Note * Telephone Encounter - Josselyn Barrow LPN - 06/05/2024 4:53 PM EDT Attempted to reach daughter and her is already here with patient. [facility]08-21[facility] Miscellaneous Notes* Telephone Encounter - [...] Bill? Corrina Lennon APRN.CNP documented in this encounterMartin Memorial Hospital08-21-2024 Telephone encounter Note * Telephone [...] can get him scheduled. Corrina Lennon APRN.CNP [facility]08-21-[facility] History of Present illness Narrative* Valerie Connelly APRN.CNP - 06/05/2024 4:45 PM EDT This note was created using kompanyriter. Subjective Cal Mitchell is a 78 year old male. 78 year old male with PMH HTN, hyperlipidemia, afib, PAD, CKD, DM presents for medical complaints. Acute onset of symptoms was over a week ago Patients daughter had sent in a [employer] message on 06/03/24. At that time she [...] history is provided by the patient. No russian language professor was used. Edema This is a new [...] 250.00. Insulin: No Lancets (ONE TOUCH DELICA) [facility] lancets Test blood sugar(s) one [...] change medicines related to chronic conditions. Reviewed [facility] messages where patient was requested to be seen in person by PCP Appt made for AM 06/06/24 Valerie Connelly APRN.KOURTNEY documented in this encounterMartin Memorial Hospital08-21-2024 Telephone encounter Note * Telephone [...] daughter Elly or son-in-law Gustavo. Thank you. [facility]08-19-[facility] Telephone encounter Note* Telephone Encounter - Corrina Lennon APRN.CNP - 06/03/2024 7:42 PM EDT We should probably have him in so we can see his legs and check his blood pressure. Please help schedule. Can we also get him contact info for nephrology. If he is looking for carole, it would probably beDrTitus Khan? Corrina Lennon APRN.KOURTNEY [facility]08-08-[facility] Telephone encounter Note* Telephone Encounter - Chely Nicolas RN - 05/23/2024 9:49 AM EDT Images from the original note were not included. Gladys Bella You31 minutes ago (9:17 AM) TR Good Morning. Pt is scheduled for Valve Clinic on 07/10/24 at 8:30 am per Josselyn. [facility]08-08-[facility] Miscellaneous Notes* Telephone Encounter - [...] PM EDT ----- Message from Josselyn Mayer APRN.CAR SHAKEOUT OPERATOR sent at 05/20/2024 2:28 PM EDT ----- Creatinine 2.3. Per chart review he was asymptomatic but had an episode of syncope. Do you want work up first or just valve clinic? Josselyn ----- Message ----- From: Pam Reddy MD Sent: 05/18/2024 8:44 AM EDT To: Chely Nicolas RN; Josselyn Mayer APRN.CAR SHAKEOUT OPERATOR Aortic stenosis need to establish care at the [facility] * Telephone Encounter - Chely Nicolas [...] need to [facility] documented in this encounterMartin Memorial Hospital08-08-2024 Telephone encounter Note * Telephone Encounter - Chely Nicolas RN - 05/23/2024 8:27 AM EDT Left message on voicemail requesting pt return call for test results and MD recommendations. Officephone number provided. Chely Nicolas RN [facility]08-08-[facility] Telephone encounter Note* Telephone Encounter - Chely Nicolas RN - 05/23/2024 8:26 AM EDT Images from the original note were not included. Pam Reddy MD You; Josselyn Mayer, ÁLVARO.CNP15 hours ago (4:42 PM) Let's see at the [facility]08-06-20[facility] Telephone encounter Note* Telephone Encounter - Wilfred June R - 05/21/2024 3:10 PM EDT Patient's son in law called in to confirm appointment with Dr. Reddy. Thanks Claritza Smith Wilfred [facility]08-06-2024 Miscellaneous Notes* Telephone Encounter - Wilfred [...] with Nephrologists. Thank you, Josselyn Mayer APRN.KOURTNEY documented in this encounterMartin Memorial Hospital08-05-2024 Telephone encounter Note * Telephone Encounter - Chely Nicolas RN - 05/20/2024 2:46 PM EDT ----- Message from Josselyn Mayer APRN.CAR SHAKEOUT OPERATOR sent at 05/20/2024 2:28 PM EDT ----- Creatinine 2.3. Per chart review he was asymptomatic but had an episode of syncope. Do you want work up first or just valve clinic? Josselyn ----- Message ----- From: Pam Reddy MD Sent: 05/18/2024 8:44 AM EDT To: Chely Nicolas RN; Josselyn Mayer APRN.CNP Aortic stenosis need to establish care at [facility]08-05-20[facility] Telephone encounter Note* Telephone Encounter [...] care with Nephrologists. Thank you, Josselyn Mayer APRN.CAR SHAKEOUT OPERATOR [facility] Work Phone: 1(864) 979-701208-05-2024 Telephone encounter Note* Telephone Encounter - Chely Nicolas RN - 05/20/2024 9:59 AM EDT Left message on voicemail requesting pt return call for test results. Office phone number provided. Chely Nicolas RN [facility]08-05-2024 Telephone encounter Note* Telephone Encounter - Chely Nicolas RN - 05/20/2024 9:58 AM EDT ----- Message from Pam Reddy MD sent at 05/18/2024 8:44 AM EDT ----- Aortic stenosis need to establish care at [facility]08-02-2024 Telephone encounter Note* Telephone Encounter - Dorothy Joshua, [facility] - 05/17/2024 9:22 AM EDT [facility] Clinic Anticoagulation Episode Summary Anticoagulation Care Providers Provider Role Specialty Phone number Guanakito Reno MD [facility] [phone] Cal Mitchell is a 78 year old [...] ALLERGIES No Known Allergies 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 [facility]08-02-[facility] Miscellaneous Notes* Telephone Encounter - Dorothy Joshua RPh - 05/17/2024 9:22 AM EDT [facility] Clinic Anticoagulation Episode Summary Anticoagulation Care Providers Provider Role Specialty Phone number Guanakito Reno MD [facility] [phone] Cal Mitchell is a 78 year old [...] warfarin instructions: 5 mg every day Sent [facility] message Advised patient to continue current weekly dose as noted above Next home INR check scheduled on 05/30/2024 Dorothy Joshua RPh Clinical Pharmacist, Pharmacy Anticoagulation Clinic Pharmacy Anticoagulation Clinic Pager: [phone]. documented in this encounterMartin Memorial Hospital07-22-2024 Instructions* Patient Instructions* Corrina Lennon APRN.CNP - 05/06/2024 6:38 PM EDT Continue to try to get the stool sample. Continue the same medication. Schedule with nephrology (kidney doctor). Recheck with Dr. eRno in 2 months. documented in this encounterMartin Memorial Hospital07-22-2024 History of Present illness Narrative* [...] a fall. Was outside and grabbed the [id number] and shook it for a few seconds [...] 250.00. Insulin: No Lancets (ONE TOUCH DELICA) [facility] lancets Test blood sugar(s) one [...] as needed for worsening/no improvement. Corrina Lennon APRN.CAR SHAKEOUT OPERATOR documented in this encounterMartin Memorial Hospital07-18-2024 History of Present illness Narrative* [...] PATIENT PRESENTS WITH AN IMPLANTABLE OR ATTACHED SURGICAL TECHNICIAN: No RADIOLOGY DEPARTMENT: Ultrasound PERIPHERAL IV DATA: Not applicable SIGNED BY: Jody Queen RDMS May 02, 2024 10:49 AM documented in this encounterMartin Memorial Hospital07-15-2024 Telephone encounter Note * Telephone Encounter - Stephany Graves MA - 04/29/2024 9:48 AM EDT Spoke with daughter. She stated she was suppose to call the local risk manager but didn't have the number and then forgot to call office to get it. Also she is not able to log into the [employer] account, states she forgot password. I have sent number for Dr. Khan to pt home along with mychart number so she can get mychart account fixed and call to set up his appt with risk manager. Pt needs refill of Lipitor sent to [facility]. Stephany Graves MA [facility]07-15-2024 Miscellaneous Notes* Telephone Encounter - Stephany Graves MA - 04/29/2024 9:48 AM EDT Spoke with daughter. She stated she was suppose to call the local risk manager but didn't have the number and then forgot to call office to get it. Also she is not able to log into the [employer] account, states she forgot password. I have sent number for Dr. Khan to pt home along with mychart number so she can get mychart account fixed and call to set up his appt with risk manager. Pt needs refill of Lipitor sent to [...] nephrology? Was ordered previously. documented in this encounterMartin Memorial Hospital07-10-2024 Telephone encounter Note * Telephone Encounter - Ruthie Cuevas [facility] - 04/24/2024 9:45 AM EDT [facility] An[facility] Clinic Anticoagulation Episode Summary Anticoagulation Care Providers Provider Role Specialty Phone number Guanakito Reno MD [facility] [phone] Cal Mitchell is a 78 year old [...] warfarin instructions: 5 mg every day Sent [facility] message Advised patient to continue current weekly dose as noted above Next home INR check scheduled on 05/07/2024 Ruthie Cuevas RPh Clinical Pharmacist, Pharmacy Anticoagulation Clinic Pharmacy Anticoagulation Clinic Pager: [phone]. [facility]07-10-[facility] Miscellaneous Notes* Telephone Encounter - Ruthie Cuevas RPh - 04/24/2024 9:45 AM EDT [facility] Anticoagulation Clinic Anticoagulation Episode Summary Anticoagulation Care Providers Provider Role Specialty Phone number Guanakito Reno MD [facility] [phone] Cal Mitchell is a 78 year old [...] warfarin instructions: 5 mg every day Sent [facility] message Advised patient to continue current weekly dose as noted above Next home INR check scheduled on 05/07/2024 Ruthie Cuevas RPh Clinical Pharmacist, Pharmacy Anticoagulation Clinic Pharmacy Anticoagulation Clinic Pager: [phone]. documented in this encounterMartin Memorial Hospital07-05-2024 Telephone encounter Note * Telephone Encounter - Geovanna Hinds MA - 04/19/2024 4:14 PM EDT Left message for patient to return call. Geovanna Hinds Ma [facility]07-05-2024 Telephone encounter Note* Telephone Encounter - Guanakito Reno MD - 04/19/2024 3:46 PM EDT Anemia is stable. I still need an ifobt done since he is on blood thinners to rule out gi blood loss. It may well be related to his kidneys. They are stable but worse. Did he get set up with nephrology? Was ordered previously. [facility]06-[facility] Telephone encounter Note* Telephone Encounter - Corrina Lennon APRN.KOURTNEY - 04/08/2024 3:45 PM EDT Pt aware. Corrina Lennon APRN.CAR SHAKEOUT OPERATOR [facility]06-24-[facility] Miscellaneous Notes* Telephone Encounter - Corrina Lennon APRN.CNP - 04/08/2024 3:45 PM EDT Pt aware. Corrina Lennon APRN.CAR SHAKEOUT OPERATOR * Telephone Encounter - Josselyn Barrow LPN [...] two weeks. See nephrology documented in this encounterMartin Memorial Hospital06-24-2024 Telephone encounter Note * Telephone Encounter - Alejandro Molina RPh - 04/08/2024 3:36 PM EDT [facility] An[facility] Clinic Anticoagulation Episode Summary Anticoagulation Care Providers Provider Role Specialty Phone number Guanakito Reno MD [facility] [phone] Cal Mitchell is a 78 year old [...] Pharmacy Anticoagulation Clinic Pharmacy Anticoagulation Clinic Pager: [phone]. [facility]06-24-[facility] Miscellaneous Notes* Telephone Encounter - Alejandro Molina RPh - 04/08/2024 3:36 PM EDT [facility] Pharmacy Anticoagulation Clinic Anticoagulation Episode Summary Anticoagulation Care Providers Provider Role Specialty Phone number Guanakito Reno MD [facility] [phone] Cal Mitchell is a 78 year old [...] Pharmacy Anticoagulation Clinic Pharmacy Anticoagulation Clinic Pager: [phone]. documented in this encounterMartin Memorial Hospital06-24-2024 Instructions* Patient Instructions* Corrina Lennon APRN.CNP - 04/08/2024 3:11 PM EDT Continue the same medication. Get the repeat labs in 2 weeks. Get the echo, carotid ultrasound, kidney ultrasound as planned. Schedule w/ nephrology. Schedule back in 1 month for recheck. documented in this encounterMartin Memorial Hospital06-24-2024 History of Present illness Narrative* [...] 8 hours as needed. blood sugar diagnostic (GlobitelTOUCH ULTRA TEST) test strip Test blood sugar(s) one times daily. Dx: 250.00. Insulin: No Lancets (ONE TOUCH DELICA) [facility] lancets Test blood sugar(s) one [...] agrees with the plan. documented in this encounterMartin Memorial Hospital06-22-2024 Telephone encounter Note * Telephone [...] Diana Jimenez PharmD, MPH Anticoagulation Clinic Pharmacist [phone] [facility]06-22-[facility] Miscellaneous Notes* Telephone Encounter - [...] Diana Jimenez PharmD, MPH Anticoagulation Clinic Pharmacist [phone] * Telephone Encounter - Nabila Jimenez RPh - 04/06/2024 3:49 PM EDT Called and LM for patient and sent MyChart referenced in VM (though patient has not logged into eedenhart since December). Patient was asked to call/page PAC at next convenience to confirm receipt of message Will follow up on Monday and expect next INR on that date Diana Jimenez PharmD, MPH Anticoagulation Clinic Pharmacist [phone] * Telephone Encounter - Yamilka Heath RN - 04/04/2024 1:14 PM EDT Alana Perez calling in INR result today (04/04.) result has been addressed below. 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 documented in this encounterMartin Memorial Hospital06-22-2024 Telephone encounter Note * Telephone Encounter - Nabila Jimenez RPh - 04/06/2024 3:49 PM EDT Called and LM for patient and sent [employer] Borges [employer] referenced in VM (though patient has not logged into [employer] since December). Patient was asked to call/page PAC at next convenience to confirm receipt of message Will follow up on Monday and expect next INR on that date Diana Jimenez, SamirD, MPH Anticoagulation Clinic Pharmacist [phone] [facility]06-21-2024 Telephone encounter Note* Telephone Encounter - Josselyn Barrow LPN - 04/05/2024 4:25 PM EDT Has visit scheduled with Corrina on Monday will route to their pool. If he keeps that appt can you please close for us? Thank you. [facility]06-21-2024 Telephone encounter Note* Telephone Encounter - Carolina Alba MA - 04/05/2024 4:19 PM EDT No answer. Left detailed message stating we were calling in regards to results and needing to discuss a few things. Advised to return call. Carolina Alba MA [facility]06-21-2024 Telephone encounter Note* Telephone Encounter - Jonelle Worley LPN - 04/05/2024 10:41 AM EDT Phoned patient left message to return call and ask to speak to a nurse. [facility]06-21-[facility] Telephone encounter Note* Telephone Encounter - Guanakito Reno MD - 04/05/2024 10:21 AM EDT Anemia is stable. May be related to his kidneys. Renal function continues to be slightly worse. Get renal us as ordered. Check ifobt. Recheck labs in two weeks. See nephrology [facility]06-20-20[facility] Telephone encounter Note* Telephone Encounter - Yamilka Heath RN - 04/04/2024 1:14 PM EDT Alana Perez calling in INR result today (04/04.) result has been addressed below. Apurva Heath RN Pharmacy Anticoagulation Clinic [facility]06-20-[facility] Telephone encounter Note* Telephone Encounter - Jimmy Carrizales [facility] - 04/04/2024 12:26 PM EDT [facility] Ambulatory [facility]acy Anticoagulation Clinic Anticoagulation Episode Summary Anticoagulation Care Providers Provider Role Specialty Phone number Guanakito Reno MD [facility] [phone] Cal Mitchell is a 78 year old [...] Pharmacy Anticoagulation Clinic Pharmacy Anticoagulation Clinic Pager: [phone]. [facility]06-11-2024 Instructions* Patient Instructions* Guanakito Reno MD - 03/26/2024 5:00 PM EDT Stop lisinopril hctz Start lisinopril. Call if any shortness of breath or edema. Weigh daily. Call us if you gain more than 3-4 lbs in a 24 hour period Get carotid ultrasound Recheck labs end of this week or early next. documented in this encounterMartin Memorial Hospital06-11-2024 History of Present illness Narrative* [...] mg daily. Needs 30 day supply to [employer] while waiting for shipment from [employer]. No myalgias HTN: Continues on Zestoretic 20-12.5 [...] 8 hours as needed. blood sugar diagnostic (GlobitelTOUCH ULTRA TEST) test strip Test blood sugar(s) [...] two weeks or prn. documented in this encounterMartin Memorial Hospital06-10-2024 History of Present illness Narrative* Pam Reddy MD - 03/25/2024 5:19 PM EDT Images from the original note were not included. Pam Reddy MD Interventional Cardiology [address] [place] [address] [phone] Chief Complaint Patient presents with: Follow Up [...] to correct any errors. documented in this encounterMartin Memorial Hospital05-24-2024 History of Present illness Narrative* [...] of . Patient Attributed To: YANCIE Payer: [facility] Action Taken: Data submitted to [employer] message to patient Notation made to upcoming appointment notes requesting provider follow up Contact made with patient: No, Chart review only. 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 documented in this encounterMartin [facility] Hospital05-01-2024 Telephone encounter Note * Telephone Encounter - Ruthie Cuevas RPh - 02/14/2024 9:04 AM EDT [facility] Anticoagulation Episode Summary Anticoagulation Care Providers Provider Role Specialty Phone number Guanakito Reno MD [facility] Medicine [phone] Cal Mitchell is a 78 year old [...] Pharmacy Anticoagulation Clinic Pharmacy Anticoagulation [facility] Pager: [phone]. 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 documented in this encounterMartin Memorial Hospital04-03-2024 Miscellaneous Notes* Telephone Encounter - [...] Thank you. Betzy Colvin. documented in this encounterMartin Memorial Hospital04-03-2024 Miscellaneous Notes* Telephone Encounter - Betzy Colvin - 01/17/2024 3:22 PM EDT Patient's daughter calling to request medication that is on patient list pioglitazone (ACTOS) 15 mg tablet Please send to [facility]. documented in this encounterMartin Memorial Hospital04-01-2024 Miscellaneous Notes* Telephone Encounter - Alejandro Molina RPh - 01/15/2024 10:32 AM EDT [facility] An[facility] Clinic Anticoagulation Episode Summary Anticoagulation Care Providers Provider Role Specialty Phone number Guanakito Reno MD [facility] [phone] Cal Mitchell is a 78 year old [...] instructed to call [facility] at [phone] with any questionsor concerns. Alejandro Molina RPh Clinical Pharmacist, Pharmacy Anticoagulation Clinic Pharmacy Anticoagulation Clinic Pager: [phone] documented in this encounterMartin Memorial Hospital03-08-2024 Instructions* Patient Instructions* Carolina Landeros APRN.CNS - 12/22/2023 3:30 PM EST 1) Telfa dressing change daily 2) Letter for [facility] 3) Follow up in 3m 4) Melatonin 3mg qhs and may repeat once through night if needed documented in this encounterMartin Memorial Hospital03-08-2024 History of Present illness Narrative* [...] 250.00. Insulin: No Lancets (ONE TOUCH DELICA) [facility] lancets Test blood sugar(s) one [...] agrees with the plan. documented in this encounterMartin Memorial Hospital03-07-2024 Miscellaneous Notes* Telephone Encounter - [...] will just continue with home care. Teresa Alexis, RN * Telephone Encounter - Geovanna Hinds [...] 7. TETANUS: 04/22/21 Protocols used: Cuts and Dlxwysdgfcm-TALOS-AM documented in this encounterMartin Memorial Hospital03-07-2024 Miscellaneous Notes* Telephone Encounter - Jimmy Carrizales, [facility] - 12/21/2023 9:03 AM EST [facility] Antico[facility] Anticoagulation Episode Summary Anticoagulation Care Providers Provider Role Specialty Phone number Guanakito Reno MD [facility] Medicine [phone] Cal Mitchell is a 78 year old [...] INR check scheduled on 01/04/2024 Jimmy Carrizales [facility] Clinical Pharmacist, Pharmacy Anticoagulation Clinic Pharmacy Anticoagulation Clinic Pager: [phone]. documented in this encounterMartin Memorial Hospital02-19-2024 Miscellaneous Notes* Telephone Encounter - Daniel JansenAutomotive Machinist Apprentice)Ashley - 12/04/2023 11:53 AM EST PATIENT CALL Received call from Summer with [facility] to report home meter result for patient. [facility] hasalready addressed this result (see below); nothing further needed at this time. Ashley Sanchez CPhT (Dye Penetrant Testing Technician) Pharmacy Anticoagulation Clinic * Telephone Encounter - Alejandro Molina [facility] - 12/04/2023 9:44 AM EST [facility] Anticoagulation Episode Summary Anticoagulation Care Providers Provider Role Specialty Phone number Guanakito Reno MD [facility] Family Medicine [phone] Cal Mitchell is a 78 year old [...] instructed to call [facility] at [phone] with any questionsor concerns. Alejandro Molina RPh Clinical Pharmacist, Pharmacy Anticoagulation Clinic Pharmacy Anticoagulation Clinic Pager: [phone] documented in this encounterMartin Memorial Hospital12-06-2023 Miscellaneous Notes* Telephone Encounter - Ruthie Cuevas RPh - 09/20/2023 1:16 PM EST [facility] Clinic Anticoagulation Episode Summary Anticoagulation Care Providers Provider Role Specialty Phone number Guanakito Reno MD [facility] [phone] Cal Mitchell is a 78 year old [...] Pharmacy Anticoagulation Clinic Pharmacy Anticoagulation Clinic Pager: [phone]. documented in this encounterMartin Memorial Hospital11-21-2023 History of Present illness Narrative* Mouna Vallecillo RN - 09/05/2023 1:48 PM ESTSummary: Medication Adherence review per request of payer ACM LUIS RN Action/FYI: Medication Adherence review completed per request of payer. NO PROVIDER ACTION REQUIRED Patient identified by name and date of . Patient Attributed To: [facility] Payer: [facility] Reason for review or outreach: Medication Adherence Medication Adherence Review Details: Diabetes Summary / Findings: GLIMEPIRIDE -- Refill Due - 07/18/2023 ATORVASTATIN -- Refill Due - 08/21/2023 Pharmacy - [facility] - Action Taken: Data submitted to [employer] message to patient Contact made with patient: No, Chart review only. documented in this encounterMartin Memorial Hospital11-07-2023 Miscellaneous Notes* Telephone Encounter - Twin Cole RPh - 08/22/2023 9:46 AM EST [facility] Anticoagulation Clinic Anticoagulation Episode Summary Anticoagulation Care Providers Provider Role Specialty Phone number Guanakito Reno MD [facility] Family Medicine [phone] Cal Mitchell is a 78 year old [...] Pharmacy Anticoagulation Clinic Pharmacy Anticoagulation Clinic Pager: [phone]. documented in this encounterMartin Memorial Hospital11-01-2023 Miscellaneous Notes* Telephone Encounter - [...] states one. Please phone Elly with reply: [phone] Copied and pasted provider's message from previous encounter: Sugars are really good. Stop his glimepiride. Call sugars in two weeks. His kidney function is worse, recheck labs in one . Make sure drinking adequate fluids. documented in this encounterMartin Memorial Hospital10-31-2023 Miscellaneous Notes* Telephone Encounter - [...] sure drinking adequate fluids. documented in this encounterMartin Memorial Hospital10-30-2023 History of Present illness Narrative* [...] 01/18/2023 Influenza Vaccine(1) due on 06/16/2023 Covid-19 Vaccine(2022- season) due on 06/16/2023 VITALS: BP 120/68 [...] YR, HIGH DOSE, QUADRIVALENT (FLUZONE HIGH-DOSE) - Five Apes COVID-19 VACCINE (2022- SEASON) AGE 12+ YR [...] N18.31 Guanakito Reno MD documented in this encounterMartin Memorial Hospital10-11-2023 Miscellaneous Notes* Telephone Encounter - Ruthie Cuevas [facility] - 07/26/2023 4:50 PM EDT [facility] Anticoagulation Clinic Anticoagulation Episode Summary Anticoagulation Care Providers Provider Role Specialty Phone number Guanakito Reno MD [facility] Family Medicine [phone] Cal Mitchell is a 78 year old [...] ALLERGIES No Known Allergies 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 documented in this encounterMartin Memorial Hospital09-19-2023 Miscellaneous Notes* Telephone Encounter - Pily Cuevas - 07/04/2023 3:50 PM EDT Patient needs to have a gap supply sent to [facility] as well please send at least [...] notify patient. Pily Horne documented in this encounterMartin Memorial Hospital09-12-2023 History of Present illness Narrative* Lizette Cardenas RN - 2023 3:08 PM EDT ACM LUIS RN Action/FYI: Medication Adherence review completed per request of payer. NO PROVIDER ACTION REQUIRED Please see requests in the Summary/Findings section below Patient identified by name and date of . Patient Attributed To: QAE Payer: [facility] Reason for review or outreach: Medication Adherence Medication Adherence Review Details: Hypertension Summary / Findings: Lisinopril was due for refill on: 05/16/23 [facility] Action Taken: Data submitted to [employer] message to patient Other Contact made with patient: No, Chart review only. Signature: Lizette Cardenas RN documented in this encounterMartin Memorial Hospital08-07-2023 Miscellaneous Notes* Telephone Encounter - Alejandro Molina RPh - 05/22/2023 10:12 AM EDT [facility] Anticoagulation Clinic Anticoagulation Episode Summary Anticoagulation Care Providers Provider Role Specialty Phone number Guanakito Reno MD [facility] Family Medicine [phone] Cal Mitchell is a 77 year old [...] instructed to call [facility] at [phone] with any questionsor concerns. Alejandro Molina RPh Clinical Pharmacist, Pharmacy Anticoagulation Clinic Pharmacy Anticoagulation Clinic Pager: [phone] documented in this encounterMartin Memorial Hospital07-10-2023 Miscellaneous Notes* Telephone Encounter - Alejandro Molina RPh - 04/24/2023 10:04 AM EDT [facility] Amb[facility] Anticoagulation Clinic Anticoagulation Episode Summary Anticoagulation Care Providers Provider Role Specialty Phone number Guanakito Reno MD [facility] [phone] Cal Mitchell is a 77 year old [...] Pharmacy Anticoagulation Clinic Pharmacy Anticoagulation Clinic Pager: [phone]. documented in this encounterMartin Memorial Hospital07-05-2023 Miscellaneous Notes* Telephone Encounter - [...] patient. Leslie Perez Pss documented in this encounterMartin Memorial Hospital06-13-2023 Miscellaneous Notes* Telephone Encounter - Twin Cole RPh - 03/28/2023 3:22 PM EDT [facility] Ambulatory [facility] Anticoagulation Clinic Anticoagulation Episode Summary Anticoagulation Care Providers Provider Role Specialty Phone number Guanakito Reno MD [facility] Medicine [phone] Cal Mitchell is a 77 year old [...] Pharmacy Anticoagulation Clinic Pharmacy Anticoagulation Clinic Pager: [phone]. documented in this encounterMartin Memorial Hospital05-01-2023 History of Present illness Narrative* Dory Mayers RN - 02/13/2023 4:13 PM EDT EVENT MONITOR DISPOSABLE PATCH INSTRUCTIONS Patient Name: Cal Lua [facility] Number: [id number] Skin prepped and cleansed with alcohol Patch secured to prepped area Monitor Activated Serial #: [id number] Patient Instructed: Prescribed order timeframe Bathing guidelines Usage of event button and diary documentation Return of monitor at the end of prescribed order Call with problems [phone] or [phone] ext. [phone] Patient expresses a good understanding of instructions Dory Mayers RN * Pam Reddy MD - 02/13/2023 4:01 PM EDT Images from the original note were not included. Pam Reddy MD Interventional Cardiology [facility] [address], [place] [address] [phone] Chief Complaint Patient presents with: Established Patient [...] 150 Strip 3 Lancets (ONE TOUCH DELICA) [facility] lancets Test blood sugar(s) one [...] to correct any errors. documented in this encounterMartin Memorial Hospital04-24-2023 History of Present illness Narrative* [...] 8 hours as needed. blood sugar diagnostic (GlobitelTOUCH ULTRA TEST) test strip Test blood sugar(s) one times daily. Dx: 250.00. Insulin: No Lancets (ONE TOUCH DELICA) [facility] lancets Test blood sugar(s) one [...] YR Guanakito Reno MD documented in this encounterMartin Memorial Hospital04-03-2023 Miscellaneous Notes* Telephone Encounter - [...] notify patient. 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 Jimmy Carrizales [facility] Clinical Pharmacist, Pharmacy Anticoagulation Clinic Pharmacy Anticoagulation Clinic Pager: [phone]. * Telephone Encounter - Ruthie Cuevas RPh - 01/11/2023 9:21 AM EDT [facility] Clinic Anticoagulation Episode Summary Anticoagulation Care Providers Provider Role Specialty Phone number Guanakito Reno MD [facility] Family Medicine [phone] Cal Mitchell is a 77 year old [...] Pharmacy Anticoagulation Clinic Pharmacy Anticoagulation Clinic Pager: [phone]. * Telephone Encounter - Alejandro Molina RPh - 01/09/2023 4:34 PM EDT Patient was due to test INR today. Will continue to monitor for results. documented in this encounterMartin Memorial Hospital03-06-2023 Miscellaneous Notes* Telephone Encounter - Alejandro Molina RPh - 12/19/2022 10:37 AM EST [facility] Pharmacy Anticoagulation Clinic Anticoagulation Episode Summary Anticoagulation Care Providers Provider Role Specialty Phone number Guanakito Reno MD [facility] [phone] Cal Mitchell is a 77 year old [...] instructed to call [facility] at [phone] with any questionsor concerns. Alejandro Molina RPh Clinical Pharmacist, Pharmacy Anticoagulation Clinic Pharmacy Anticoagulation Clinic Pager: [phone] documented in this encounterMartin Memorial Hospital02-13-2023 Miscellaneous Notes* Telephone Encounter - Alejandro Molina RPh - 11/28/2022 10:18 AM EST [facility] Pharmacy Anticoagulation Clinic Anticoagulation Episode Summary Anticoagulation Care Providers Provider Role Specialty Phone number Guanakito Reno MD [facility] Medicine [phone] Cal Mitchell is a 77 year old [...] Full warfarin instructions: 7.5 mg every Mon, Mon; 5 mg all other days Left voice message Advised patient to decrease dose for 1 day only then resume weekly regimen Next INR check due on 12/09/2022 Patient instructed to call [facility] at [phone] with any questionsor concerns. Alejandro Molina RPh Clinical Pharmacist, Pharmacy Anticoagulation Clinic Pharmacy Anticoagulation Clinic Pager: [phone] documented in this encounterMartin Memorial Hospital02-03-2023 Miscellaneous Notes* Telephone Encounter - Kamran Ayon RPh - 11/18/2022 12:49 PM EST Patient due to test INR today. Will continue to monitor for results. 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 documented in this encounterMartin Memorial Hospital01-17-2023 Miscellaneous Notes* Telephone Encounter - Twin Cole RPh - 11/01/2022 10:30 AM EST Patient due to test INR today. Will continue to monitor for results. Twin Cole RPh documented in this encounterMartin Memorial Hospital01-10-2023 Miscellaneous Notes* Telephone Encounter - Twin Cole RP - 10/25/2022 4:30 PM EST [facility] Antico[facility] Clinic Anticoagulation Episode Summary Anticoagulation Care Providers Provider Role Specialty Phone number Guanakito Reno MD [facility] Internal Medicine [phone] Cal Mitchell is a 77 year old [...] accidental over dosage, changes in warfarin tablet color/shape/dentofacial orthopedics dentist, eating less green vegetables, recent illness/fever/nausea/vomiting/diarrhea, increased [...] Pharmacy Anticoagulation Clinic Pharmacy Anticoagulation Clinic Pager: [phone]. * Telephone Encounter - Ruthie Cuevas RPh - 10/19/2022 4:33 PM EST Patient was due to test INR today will continue to monitor for results. Ruthie Cuevas PharmD documented in this encounterMartin Memorial Hospital12-20-2022 History of Present illness Narrative* Alondra Prescott DO - 10/04/2022 10:58 AM EST This office note has been dictated. Alondra Prescott DO * Alondra Prescott DO - 10/04/2022 12:00 AM EST NAME: CAL MITCHELL [facility] NO: [id number] DATE OF SERVICE: 10/04/2022 Subjective: Mr. Mitchell [...] with any concerns. Dagoberto Gibbons/089 Audio #: [id number] Date Dictated: 10/04/2022 10:13:59 Date Typed: 10/05/2022 14:12:47 Date Revised: documented in this encounterMartin Memorial Hospital12-15-2022 Miscellaneous Notes* Telephone Encounter - Jimmy Carrizales [facility] - 09/29/2022 4:38 PM EST [facility] An[facility] Anticoagulation Episode Summary Anticoagulation Care Providers Provider Role Specialty Phone number Guanakito Reno MD [facility] [phone] Cal Mitchell is a 77 year old [...] Pharmacy Anticoagulation Clinic Pharmacy Anticoagulation Clinic Pager: [phone]. * Telephone Encounter - Ruben Cunningham ([employer]) - 09/29/2022 2:23 PM EST PATIENT CALL Patient's daughter Elly called call center regarding results. Patient's daughter stated the INR result was 1.9 last night at 9:30 pm and gave him an extra 1/2 tablet of warfarin. January will reach out to [employer] to report result and to have them troubleshoot application for new phone. PT INR (no units) Date Value 01/24/2022 2.1 biotel 10/26/2021 2.1 (Biotel) 03/04/2021 2.4 INR Home CoaguChek (no units) Date Value 09/14/2022 1.8 07/29/2022 2.2 07/04/2022 2.7 Patient stated she lets blocked calls go to [place]. She asked if she needed to be near the meterto report the results over the phone to [facility]--advised her I am not sure. January can be reached at [phone] Ruben Cunningham ([employer]) * Telephone Encounter - Ruthie Cuevas RPh [...] PharmD Pharmacy Anticoagulation Clinic documented in this encounterMartin Memorial Hospital12-09-2022 Miscellaneous Notes* Telephone Encounter - Yasemin Yeager 09/23/2022 1:54 PM EST Patient has been [...] every morning. Please review and advise. Yasemin Joyce documented in this encounterMartin Memorial Hospital12-01-2022 Miscellaneous Notes* Telephone Encounter - [...] patient's name. Messaged Christine and Quoc at [facility]. Apurva Heath RN Pharmacy Anticoagulation Clinic * Telephone Encounter - Jimmy Carrizales [facility] - 09/15/2022 10:24 AM EST [facility] Anticoagulation Episode Summary Anticoagulation Care Providers Provider Role Specialty Phone number Guanakito Reno MD [facility] Medicine [phone] Cal Mitchell is a 77 year old [...] every Tue; 5 mg all other days; Tyqlgetd61/7/2022 Called and spoke to patient/caregiver - per demographics we only have daughter's phone number but no identifier Advised patient to increase dose for 1 day only then resume weekly regimen Next home INR check scheduled on 09/21/2022 Jimmy Carrizales RPh Clinical Pharmacist, Pharmacy Anticoagulation Clinic Pharmacy Anticoagulation Clinic Pager: [phone]. * Telephone Encounter - Alejandro Molina RPh [...] to monitor for results. documented in this encounterMartin Memorial Hospital11-23-2022 History of Present illness Narrative* Lizette Cardenas RN - 09/07/2022 6:24 AM EST ACM LUIS RN Action/FYI: Medication Adherence review completed per request of [facility]. NO PROVIDER ACTION REQUIRED Lisinopril/Hctz 20-12.5mg Last filled: 05/21/22 Days Supply: 90 Refill Due: 08/19/22 Pharmacy: [facility] Atorvastatin 80mg Last filled: 03/20/22 Days Supply: 90 Refill Due: 06/28/22 Pharmacy: [facility] MY CHART MESSAGE SENT Patient identified by name and date of . Patient Attributed To: QAE Payer: [facility] Reason for review or outreach: Medication Adherence Medication Adherence Review Details: Cholesterol and Hypertension Summary / Findings: As per above Action Taken: Data submitted to [employer] Elias Borges [employer] message to patient Contact made with patient: No, Chart review only. Signature: Lizette Cardenas RN documented in this encounterMartin Memorial Hospital10-31-2022 History of Present illness Narrative* Pam Reddy MD - 08/15/2022 3:48 PM EDT Images from the original note were not included. Pam Reddy MD Interventional Cardiology [facility] [id number], [place] [address] [phone] Chief Complaint Patient presents with: Consult HISTORY [...] 150 Strip 3 Lancets (ONE TOUCH DELICA) [facility] lancets Test blood sugar(s) one [...] to correct any errors. documented in this encounterMartin Memorial Hospital10-17-2022 Miscellaneous Notes* Telephone Encounter - Alejandro Molina RPh - 08/01/2022 9:52 AM EDT [facility] Anticoagulation Clinic Anticoagulation Episode Summary Anticoagulation Care Providers Provider Role Specialty Phone number Guanakito Reno MD [facility] [phone] Cal Mitchell is a 77 year old [...] instructed to call [facility] at [phone] with any questionsor concerns. Alejandro Molina RPh Clinical Pharmacist, Pharmacy Anticoagulation Clinic Pharmacy Anticoagulation Clinic Pager: [phone] documented in this encounterMartin Memorial Hospital10-07-2022 Miscellaneous Notes* Telephone Encounter - [...] advise. Darrell Meyer LPN documented in this encounterMartin Memorial Hospital09-20-2022 Miscellaneous Notes* Telephone Encounter - Twin Kelsey, [facility] [facility] - 07/05/2022 9:30 AM EDT [facility] Anticoagulation Clinic Anticoagulation Episode Summary Anticoagulation Care Providers Provider Role Specialty Phone number Guanakito Reno MD [facility] [phone] Cal Mitchell is a 77 year old [...] Pharmacy Anticoagulation Clinic Pharmacy Anticoagulation Clinic Pager: [phone]. * Telephone Encounter - Alejandro Molina RPh - 07/04/2022 3:42 PM EDT Cal Mitchell was called and reminded to test INR today or as soon as possible. * Telephone Encounter - Alejandro Molina RPh - 2022 4:11 PM EDT Patient was due to test INR today. Will continue to monitor for results. documented in this encounterMartin [facility] Hospital08-30-2022 Miscellaneous Notes* Telephone Encounter - Twin Cole RPh - 06/14/2022 9:14 AM EDT [facility] Anticoagulation Clinic Anticoagulation Episode Summary Anticoagulation Care Providers Provider Role Specialty Phone number Guanakito Reno MD [facility] [phone] Cal Mitchell is a 76 year old [...] INR check scheduled on 2022 Twin Cole [facility] Clinical Pharmacist, Pharmacy Anticoagulation Clinic Pharmacy Anticoagulation Clinic Pager: [phone]. * Telephone Encounter - Val Oliver RPh - 06/13/2022 9:09 AM EDT MyChart message sent as a reminder to test INR RAISSA. * Telephone Encounter - Alejandro Molina RP - 06/06/2022 4:50 PM EDT Patient was due to test INR today. Will continue to monitor for results. documented in this encounterMartin [facility] Hospital08-30-2022 History of Present illness Narrative* Nirmala Lim MA - 06/14/2022 9:03 AM EDT [employer] NAVIGATION OUTREACH Action/FYI Called and left a message to call [phone], to discuss health maintenance items that are [...] 14, 2022 9:05 AM documented in this encounterMartin Memorial Hospital08-04-2022 Miscellaneous Notes* Telephone Encounter - [...] Please advise. Yasemin Horne documented in this encounterMartin [facility] Hospital08-01-2022 Miscellaneous Notes* Telephone Encounter - Alejandro Molina RPh - 05/16/2022 11:54 AM EDT [facility] Anticoagulation Clinic Anticoagulation Episode Summary Anticoagulation Care Providers Provider Role Specialty Phone number Guanakito Reno MD [facility] [phone] Cal Mitchell is a 76 year old [...] instructed to call [facility] at [phone] with any questionsor concerns. Alejandro Molina RPh Clinical Pharmacist, Pharmacy Anticoagulation Clinic Pharmacy Anticoagulation Clinic Pager: [phone] documented in this encounterMartin Memorial Hospital07-11-2022 Miscellaneous Notes* Telephone Encounter - Val Oliver RPh - 04/25/2022 7:56 AM EDT Last INR due around 04/18. MyChart message sent as a reminder to test INR RAISSA. PT INR (no units) Date Value 01/24/2022 2.1 biotel 10/26/2021 2.1 (Biotel) 03/04/2021 2.4 INR Home CoaguChek (no units) Date Value 04/02/2022 2.2 03/09/2022 2.6 02/10/2022 3.4 documented in this encounterMartin Memorial Hospital06-15-2022 Miscellaneous Notes* Telephone Encounter - [...] either. Ruthie Cuevas PharmD documented in this encounterMartin Memorial Hospital06-01-2022 Miscellaneous Notes* Telephone Encounter - Nicki Nieto - 03/16/2022 10:46 AM EDT Patient is scheduled for an appt on 03/22/22 in [place]. Did call the patient to see if any external imagine has been complete, left VM to call the office Or record indicates no testing has been completed since 2019 Would you like an updated carotid US Order pending please sign if correct Thanks documented in this encounterMartin Memorial Hospital05-25-2022 Miscellaneous Notes* Telephone Encounter - Ruthie Cuevas RPh - 03/09/2022 4:08 PM EDT [facility] Anticoagulation Episode Summary Anticoagulation Care Providers Provider Role Specialty Phone number Guanakito Reno MD [facility] [phone] Cal Mitchell is a 76 year old [...] therapeutic He did not read our last [facility] message and hasn't logged on in a month so tried to call. Plan: Called and spoke to patient/caregiver Advised patient to continue current weekly dose Next home INR check scheduled on 03/23/2022 Ruthie Cuevas RPh Clinical Pharmacist, Pharmacy Anticoagulation Clinic Pharmacy Anticoagulation Clinic Pager: [phone] . documented in this encounterMartin Memorial Hospital05-05-2022 Miscellaneous Notes* Telephone Encounter - Jazmyn Garcia RPh - 02/17/2022 1:17 PM EDT Patient due to test INR today. Will continue to monitor for results. Jazmyn Garcia RPh documented in this encounterMartin Memorial Hospital04-29-2022 Miscellaneous Notes* Telephone Encounter - Denisse Hutchinson RP - 02/11/2022 8:21 AM EDT [facility] An[facility] Anticoagulation Episode Summary Anticoagulation Care Providers Provider Role Specialty Phone number Guanakito Reno MD [facility] [phone] Cal Mitchell is a 76 year old [...] did not speak to patient Plan: Sent [employer] message Advised patient to decrease dose for 2 days only then resume weekly regimen Next home INR check scheduled on 02/17/2022 Denisse Hutchinson RPh Clinical Pharmacist, Pharmacy Anticoagulation Clinic Pharmacy Anticoagulation Clinic Pager: [phone] . * Telephone Encounter - Twin Cole RPh - 02/08/2022 4:00 PM EDT Patient due to test INR today. Will continue to monitor for results. Twin Cole RPh documented in this encounterMartin Memorial Hospital04-12-2022 Miscellaneous Notes* Telephone Encounter - Twin Cole RPh - 01/25/2022 9:15 AM EDT [facility] Antico[facility] Anticoagulation Episode Summary Anticoagulation Care Providers Provider Role Specialty Phone number Guanakito Reno MD [facility] [phone] Cal Mitchell is a 76 year old [...] Pharmacy Anticoagulation Clinic Pharmacy Anticoagulation Clinic Pager: [phone] . documented in this encounterMartin Memorial Hospital04-06-2022 History of Present illness Narrative* [...] No. Dementia: Had previously been following with [facility]. Last visit 08/2020. Doesn't have anything further scheduled. Doesn't really want to go to [place], but appears last visit was distance. Does not drive. Lives w/ daughter. Stays up late at night and sleep during the day. A. Fib: Chronic anticoagulation. Denies any hematochezia/melena. Daughter does home checks. Follows w/ pharmacy. occ fall with no significant injury. Had been following with [place] [facility], but unsure when he was last seen there. Diabetes. Does not check home blood sugars. Reports compliance w/ medication. Carotid artery stenosis. Follows w/ vascular. Last visit 10/20/20. Recommended follow-up with cardiology and then Dr. Devries in [place]. He did have echo done. Unsure if he followed up with [place] [facility]. Per note, they wanted to establish [...] Abs Lymph 1.00 - 4.00 k/uL 1.65 Boyle% % 7.4 Abs Boyle <0.87 k/uL 0.53 Eosin% % 8.2 Abs [...] Negative Negative Ketones, Urine Negative Negative Specific [place], Ur 1.005 - 1.030 1.016 Hemoglobin/Blood,Ur Negative [...] 8 hours as needed. blood sugar diagnostic (GlobitelTOUCH ULTRA TEST) test strip Test blood sugar(s) one times daily. Dx: 250.00. Insulin: No Lancets (ONE TOUCH DELICA) [facility] lancets Test blood sugar(s) one [...] three months and prn. documented in this encounterMartin Memorial Hospital03-31-2022 Miscellaneous Notes* Telephone Encounter - Jazmyn Garcia RPh - 01/13/2022 2:33 PM EDT Patient due to test INR today. Will continue to monitor for results. Jazmyn Garcia RPh documented in this encounterMartin Memorial Hospital11-11-2020 History of Past illness Narrative* [...] of this encounter (statuses as of 08/15/2023) [facility] Narrative* [...] of this encounter (statuses as of 08/15/2023) [facility] Narrative* [...] of this encounter (statuses as of 08/16/2023) [facility] Narrative* [...] of this encounter (statuses as of 08/23/2023) [facility] Narrative* [...] of this encounter (statuses as of 09/06/2023) [facility] Narrative* [...] of this encounter (statuses as of 09/20/2023) [facility] Narrative* [...] of this encounter (statuses as of 12/04/2023) [facility] Narrative* [...] of this encounter (statuses as of 12/21/2023) [facility] Narrative* [...] of this encounter (statuses as of 12/21/2023) [facility] Narrative* [...] of this encounter (statuses as of 12/22/2023) [facility] Narrative* [...] of this encounter (statuses as of 01/15/2024) [facility] N[facility]ative* [...] of this encounter (statuses as of 01/18/2024) [facility]* [...] of this encounter (statuses as of 01/19/2022) [facility]* [...] of this encounter (statuses as of 01/25/2022) [facility]* [...] of this encounter (statuses as of 02/11/2022) [facility]* [...] of this encounter (statuses as of 03/09/2022) [facility]* [...] of this encounter (statuses as of 03/17/2022) [facility]* [...] of this encounter (statuses as of 03/18/2022) [facility]* [...] of this encounter (statuses as of 04/04/2022) [facility]* [...] of this encounter (statuses as of 04/25/2022) [facility]* [...] of this encounter (statuses as of 05/13/2022) [facility]* [...] of this encounter (statuses as of 05/16/2022) [facility]* [...] of this encounter (statuses as of 05/19/2022) [facility]* [...] of this encounter (statuses as of 06/14/2022) [facility]* [...] of this encounter (statuses as of 07/05/2022) [facility]* [...] of this encounter (statuses as of 07/22/2022) [facility] [...] of this encounter (statuses as of 08/01/2022) [facility] [...] of this encounter (statuses as of 08/15/2022) [facility] [...] of this encounter (statuses as of 09/07/2022) [facility]* [...] of this encounter (statuses as of 09/15/2022) [facility]* [...] of this encounter (statuses as of 09/23/2022) [facility]* [...] of this encounter (statuses as of 09/29/2022) [facility]* [...] of this encounter (statuses as of 10/16/2022) [facility]* [...] of this encounter (statuses as of 10/25/2022) [facility]* [...] of this encounter (statuses as of 11/04/2022) [facility]* [...] of this encounter (statuses as of 11/08/2022) [facility]* [...] of this encounter (statuses as of 11/18/2022) [facility]* [...] of this encounter (statuses as of 11/28/2022) [facility] [...] of this encounter (statuses as of 12/19/2022) [facility]* [...] of this encounter (statuses as of 01/12/2023) [facility]* [...] of this encounter (statuses as of 01/16/2023) [facility] [...] of this encounter (statuses as of 02/07/2023) [facility] [...] of this encounter (statuses as of 02/14/2023) [facility] [...] of this encounter (statuses as of 03/29/2023) [facility] [...] of this encounter (statuses as of 04/20/2023) [facility] [...] of this encounter (statuses as of 04/24/2023) [facility] [...] of this encounter (statuses as of 05/22/2023) [facility] [...] of this encounter (statuses as of 06/28/2023) [facility]* [...] of this encounter (statuses as of 07/05/2023) [facility]* [...] of this encounter (statuses as of 07/27/2023) [facility] [place] [facility] Diagnosis Essential hypertension- Primary Unspecified [...] 3b CKD (HCC) [facility] Diagnosis FPC (current) use of anticoagulants- Primary Long-term (current) use of anticoagulants Paroxysmal atrial fibrillation (HCC) Atrial fibrillation [facility] Diagnosis FPC (current) use of anticoagulants- Primary Long-term (current) use of anticoagulants Paroxysmal atrial fibrillation (HCC) Atrial fibrillation [facility]* Diagnosis 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- Primary Long-term (current) use of anticoagulants Paroxysmal atrial fibrillation (HCC) Atrial fibrillation [facility] Diagnosis FPC (current) use of anticoagulants- Primary Long-term (current) use of anticoagulants Paroxysmal atrial fibrillation (HCC) Atrial fibrillation [facility]* Diagnosis Bilateral carotid artery stenosis- Primary Occlusion and stenosis of carotid artery without mention of cerebral infarction Stenosis of left carotid artery Occlusion and stenosis of carotid artery without mention of cerebral infarction [facility]* Diagnosis FPC (current) use of anticoagulants- Primary Long-term (current) use of anticoagulants Paroxysmal atrial fibrillation (HCC) Atrial fibrillation [facility]* Diagnosis Benign prostatic hyperplasia without lower urinary tract symptoms Mixed dementia (HCC) Essential hypertension with goal blood pressure less than 140/90 Lung nodule Solitary pulmonary nodule Paroxysmal atrial fibrillation (HCC) Atrial fibrillation [facility] Diagnosis Paroxysmal atrial fibrillation (HCC) Atrial fibrillation [facility]* Diagnosis Obesity, Class II, BMI 35-39.9- Primary Obesity, unspecified Paroxysmal atrial fibrillation (HCC) Atrial fibrillation Nonrheumatic aortic valve stenosis Aortic valve disorders Aortic valve disorder Aortic valve disorders [facility] Diagnosis FPC (current) use of anticoagulants- Primary Long-term (current) use of anticoagulants Paroxysmal atrial fibrillation (HCC) Atrial fibrillation [facility] Diagnosis Essential hypertension with goal blood pressure less than 140/90 [facility] Diagnosis FPC (current) use of anticoagulants- Primary Long-term (current) use of anticoagulants Paroxysmal atrial fibrillation (HCC) Atrial fibrillation [facility]* Diagnosis Bilateral carotid artery stenosis- Primary Occlusion and stenosis of carotid artery without mention of cerebral infarction [facility] Diagnosis FPC (current) use of anticoagulants- Primary Long-term (current) use of anticoagulants Paroxysmal atrial fibrillation (HCC) Atrial fibrillation [facility] Essential hypertension with goal blood pressure less than 140/90 [facility] Diagnosis Essential hypertension with goal [...] for COVID-19 vaccine [facility]* Diagnosis Syncope, unspecified syncope type- [...] of insulin (HCC) [facility] Diagnosis Essential hypertension with goal blood pressure less than 140/90 [facility]* Diagnosis 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- Primary Long-term (current) use of anticoagulants Paroxysmal atrial fibrillation (HCC) Atrial fibrillation [facility]* Diagnosis Onychomycosis- Primary Dermatophytosis of [...] kidney disease (HCC) [facility]* Diagnosis Renal insufficiency- Primary Unspecified disorder of kidney and ureter [facility]* Diagnosis 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- Primary Long-term (current) use of anticoagulants Paroxysmal atrial fibrillation (HCC) Atrial fibrillation [facility]* Diagnosis 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- Primary Long-term (current) use of anticoagulants Paroxysmal atrial fibrillation (HCC) Atrial fibrillation [facility]* Diagnosis Abrasion of arm, left, initial encounter- Primary Chronic insomnia Insomnia, unspecified [facility]* Diagnosis Essential hypertension with goal blood pressure less than 140/90 Paroxysmal atrial fibrillation (HCC) Atrial fibrillation [facility]* Diagnosis Lung nodule Solitary pulmonary nodule [facility]* Diagnosis 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- Primary Long-term (current) use of anticoagulants Paroxysmal atrial fibrillation (HCC) Atrial fibrillation [facility]* Diagnosis Syncope, unspecified syncope type- Primary Aortic valve disorder Aortic valve disorders Paroxysmal atrial fibrillation (HCC) Atrial fibrillation Ectatic thoracic aorta (HCC) 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, without long-term current use of insulin ([facility]) documented [facility] this encounter [facility]* Diagnosis Essential hypertension- Primary Unspecified [...] or 3b CKD (HCC) Mixed dementia (HCC) 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 Long-term (current) use of anticoagulants Obesity, Class II, BMI 35-39.9 Obesity, unspecified Renal insufficiency Unspecified disorder of kidney and ureter Anemia, unspecified type documented [facility] encounter [facility]* Diagnosis FPC (current) use of anticoagulants- Primary Long-term (current) use of anticoagulants Paroxysmal atrial fibrillation (HCC) Atrial fibrillation [facility]* Diagnosis CKD (chronic kidney disease) stage 4, 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/min ([facility])- Primary Chronic kidney disease, Stage IV (severe) Anemia, unspecified type documented [facility] [place] [facility]* Diagnosis Essential hypertension- Primary Unspecified [...] Stage IV (severe) [facility]* Diagnosis FPC (current) use of anticoagulants- Primary Long-term (current) use of anticoagulants Paroxysmal atrial fibrillation (HCC) Atrial fibrillation [facility] [facility]* Diagnosis Renal insufficiency Unspecified disorder of kidney and ureter [facility] Diagnosis Essential hypertension- Primary Unspecified essential hypertension Hypertensive kidney disease with stage 3 chronic kidney disease, unspecified whether stage 3a or 3b CKD (HCC) Anemia, unspecified type documented in this encounter [facility] note* Diagnosis FPC (current) use of anticoagulants- Primary Long-term (current) use of anticoagulants Paroxysmal atrial fibrillation (HCC) Atrial fibrillation [facility]* Diagnosis Blood pressure check- Primary Screening for hypertension Leg swelling Swelling of limb [facility]* Diagnosis Aortic valve stenosis, etiology of cardiac valve disease unspecified- Primary Hypertensive kidney disease with stage 3b chronic kidney disease (HCC) Paroxysmal atrial fibrillation (HCC) Atrial fibrillation Benign prostatic hyperplasia without lower urinary tract symptoms Anemia, unspecified type [facility]* Diagnosis FPC (current) use of anticoagulants- Primary Long-term (current) use of anticoagulants Paroxysmal atrial fibrillation (HCC) Atrial fibrillation [facility]* Diagnosis Screen for colon cancer- Primary Special screening for malignant neoplasms, colon documented [facility]* Diagnosis 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 note* Diagnosis Nonrheumatic aortic valve stenosis Aortic valve disorders Valvular heart disease Endocarditis, valve unspecified, unspecified cause [facility] Diagnosis Essential hypertension- Primary Unspecified [...] disease, Stage IV (severe) Mixed dementia (HCC) 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 Long-term (current) use of anticoagulants Need for vaccination Need for prophylactic vaccination and inoculation against unspecified single disease Valvular heart disease Endocarditis, valve unspecified, unspecified cause documented [facility] Diagnosis Essential hypertension- Primary Unspecified essential hypertension Valvular heart disease Endocarditis, valve unspecified, unspecified cause documented [facility] Diagnosis Paroxysmal atrial fibrillation (HCC)- Primary Atrial fibrillation Aortic valve stenosis, etiology of cardiac valve disease unspecified Valvular heart disease Endocarditis, valve unspecified, unspecified cause documented [facility] Diagnosis Nonrheumatic aortic valve stenosis- Primary Aortic valve disorders Paroxysmal atrial fibrillation (HCC) Atrial fibrillation Valvular heart disease Endocarditis, valve unspecified, unspecified cause [facility] Diagnosis Nonrheumatic aortic valve stenosis Aortic valve disorders Encounter for preprocedural cardiovascular examination Pre-operative cardiovascular examination [facility] FPC (current) use of anticoagulants- Primary Long-term (current) use of anticoagulants Paroxysmal atrial fibrillation (HCC) Atrial fibrillation [facility] Diagnosis Bilateral carotid artery stenosis- Primary Occlusion and stenosis of carotid artery without mention of cerebral infarction History of carotid endarterectomy Other postprocedural status [facility]* Diagnosis 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- Primary Long-term (current) use of anticoagulants Paroxysmal atrial fibrillation (HCC) Atrial fibrillation [facility] Diagnosis Hyperlipidemia, mixed- Primary Mixed [...] (HCC) Chronic kidney disease, Stage IV (severe) 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 note* Diagnosis Paroxysmal atrial fibrillation (HCC) Atrial fibrillation documented in this encounter [facility] for referral (narrative)* Outpatient Procedure (Routine) - Pending Review Specialty Diagnoses / Procedures Referred By Contac t Referred To Contact [facility] Diagnoses Bilateral carotid artery stenosis Procedures US CAROTID ARTERIES GRAY VAS LAB DUPLEX SCAN EXTRACRANIAL ART COMPL BI STUDY Alondra Prescott DO [address] [place] [address] [facility] [address] [address] Referral ID Status Reason Start Date Expiration Date Visits Requested Visits Authorized [id number] Pending Review Auto-Generat ed Referral 03/18/2022 03/16/2023 1 1 [facility] for referral (narrative)* Outpatient Procedure (Routine) - Authorized Specialty Diagnoses / Procedures Referred By Contac t Referred To Contact [facility] Diagnoses Nonrheumatic aortic valve stenosis Procedures ECHO ECHO TTHRC R-T 2D W/WOM-MODE COMPL SPEC&COLR Pam Velazco MD [address] [place] [address] [facility] [address] [address] Referral ID Status Reason Start Date Expiration Date Visits Requested Visits Authorized [id number] Authorized Auto-Generat ed Referral 08/22/2022 08/15/2023 1 1 [facility] for referral (narrative)* Outpatient Procedure (Routine) - Pending Review Specialty Diagnoses / Procedures Referred By Contac t Referred To Contact [facility] Diagnoses Bilateral carotid artery stenosis Procedures US CAROTID ARTERIES GRAY VAS LAB DUPLEX SCAN EXTRACRANIAL ART COMPL BI STUDY Alondra Prescott DO [address] [place] [address] [facility] Vascular [place] [id number] Referral ID Status Reason Start Date Expiration Date Visits Requested Visits Authorized [id number] Pending Review Auto-Generat ed Referral 2 10/04/2023 1 1 [facility] for referral (narrative)* Outpatient Procedure (Routine) - Authorized Specialty Diagnoses / Procedures Referred By Contac t Referred To Contact [facility] Diagnoses Syncope, unspecified syncope type Aortic valve disorder Procedures ECHO ECHO TTHRC R-T 2D W/WOM-MODE COMPL SPEC&COLR Pam Velazco MD [address] [place] [address] [facility] [address] [address] Referral ID Status Reason Start Date Expiration Date Visits Requested Visits Authorized [id number] Authorized Auto-Generat ed Referral 02/20/2023 02/13/2024 1 1 [facility] for referral (narrative)* Outpatient Procedure (Routine) - Pending Review Specialty Diagnoses / Procedures Referred By Contac t Referred To Contact [facility] Diagnoses Syncope, unspecified syncope type Aortic valve disorder Procedures ECHO ECHO TTHRC R-T 2D W/WOM-MODE COMPL SPEC&COLPam Buchanan MD [address], [address] [place] [address] [facility] [place] [address] [place] [address] Referral ID Status Reason Start Date Expiration Date Visits Requested Visits Authorized [id number] Pending Review Auto-Generat ed Referral 04/08/2024 03/25/2025 1 1 * Outpatient Procedure (Routine) - Pending Review Specialty Diagnoses / Procedures Referred By Contac t Referred To Contact [facility] Diagnoses Syncope, unspecified syncope type Aortic valve disorder Paroxysmal atrial fibrillation (HCC) Procedures ECG COMPLETE ECG ROUTINE ECG W/LEAST 12 LDS W/I&R Pma Reddy MD [address], [address] [place] [address] [facility] [address] [place] [address] Referral ID Status Reason Start Date Expiration Date Visits Requested Visits Authorized [id number] Pending Review Auto-Generat ed Referral 03/21/2024 03/21/2025 1 1 [facility] for referral (narrative)* Diagnostic Procedure Only (Routine) - Authorized Specialty Diagnoses / Procedures Referred By Contac t Referred To Contact [facility] Diagnoses Renal insufficiency Procedures US KIDNEY/BLADDER US RETROPERITONEAL REAL TIME W/[place] [address] [place] [address] [id number] Referral ID Status Reason Start Date Expiration Date Visits Requested Visits Authorized [id number] Authorized Auto-Generat ed Referral 03/26/2024 04/25/2025 1 1 * Outpatient Procedure (Routine) - Pending Review Specialty Diagnoses / Procedures Referred By Contac t Referred To Contact [facility] Diagnoses History of carotid endarterectomy Procedures US CAROTID ARTERIES GRAY VAS LAB DUPLEX SCAN EXTRACRANIAL [place] [address] [place] [address] [facility] [place] [address] [place] [address] Referral ID Status Reason Start Date Expiration Date Visits Requested Visits Authorized [id number] Pending Review Auto-Generat ed Referral 03/26/2024 03/26/2025 1 1 [facility] for referral (narrative)* Diagnostic Procedure Only (Routine) - Closed Specialty Diagnoses / Procedures Referred By Anival t Referred To Contact [facility] Diagnoses Renal insufficiency Procedures US KIDNEY/BLADDER US RETROPERITONEAL REAL TIME W/IMAGE COMPLETE Guanakito Reno MD [address] [place] [address] [place] [address] Referral ID Status Reason Start Date Expiration Date V isits Requested Visits Authorized [id number] Closed Auto-Generate d Referral 03/26/2024 04/25/2025 1 1 [facility] for referral (narrative)* Diagnostic Procedure Only (Routine) - New Request Specialty Diagnoses / Procedures Referred By Anival aden Referred To Contact [facility] Diagnoses Bilateral carotid artery stenosis History of carotid endarterectomy Procedures US CAROTID BILATERAL Laura Iraheta MD [address] [place] [address] [place] [address] Referral ID Status Reason Start Date Expiration Date Visits Requested Visits Authorized [id number] New Request Auto-Generat ed Referral 09/05/2025 1 1 [facility] Summary Purpose Family History No [...] Mixed dementia (HCC) Guanakito Reno MD [address] [place] [address] Referral ID Status Reason Start Date Expiration Date Visits Re quested Visits Authorized [id number] Closed 1 1 Referral ID Status Reason Start Date Expiration Date Visits Re quested Visits Authorized [id number] Closed 1 1 Specialty Diagnoses / Procedures Referred By Contac t Referred To Contact Podiatry Diagnoses Onychomycosis Procedures CONSULT TO PODIATRY OFFICE/OUTPATIENT [facility] 60-74 MINUTES Guanakito Reno MD [address] [place] [address] Referral ID Status Reason Start Date Expiration Date Visits Requested Visits Authorized [id number] Pending Review PCP Requested Referral 3 08/13/2024 1 1 Specialty Diagnoses / Procedures Referred By Contac t Referred To Contact Nephrology Diagnoses CKD (chronic kidney disease) stage 4, 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/min (HCC) Anemia, unspecified type Procedures CONSULT TO NEPHROLOGY OFFICE/OUTPATIENT [facility] 60 MINUTES Guanakito Reno MD [address] [place] [address] Referral ID Status Reason Start Date Expiration Date Visits Requested Visits Authorized [id number] Authorized PCP Requested Referral 04/05/2024 04/05/2025 1 1 Specialty Diagnoses / Procedures Referred By Contac t Referred To Contact Vascular Surgery Diagnoses Stenosis of left carotid artery Procedures CONSULT TO VASCULAR SURGERY OFFICE/OUTPATIENT [facility] 60 MINUTES Josselyn Mayer, PAPER SORTER.CAR SHAKEOUT OPERATOR [address] [place] [address] Laura Iraheta MD [address] [place] [address] Referral ID Status Reason Start Date Expiration Date Visits Requested Visits Authorized [id number] Authorized PCP Requested Referral 07/10/2024 07/10/2025 1 1 Specialty Diagnoses / Procedures Referred By Contac t Referred To Contact Nephrology Diagnoses Chronic kidney disease, unspecified CKD stage Anemia in chronic kidney disease, unspecified CKD stage Procedures CONSULT TO NEPHROLOGY Josselyn Mayer, PAPER SORTER.CAR SHAKEOUT OPERATOR [address] [place] [address] Eladio Remy MD [address] [place] [address] Referral ID Status Reason Start Date Expiration Date Visits Requested Visits Authorized [id number] Ref Not Required PCP Requested Referral 07/10/2024 07/10/2025 1 1 Specialty Diagnoses / Procedures Referred By Contac t Referred To Contact Gerontology Diagnoses Dementia, unspecified dementia severity, unspecified dementia type, unspecified whether behavioral, psychotic, or mood disturbance or anxiety (HCC) Procedures CONSULT TO GERIATRICS OFFICE/OUTPATIENT [facility] 60 MINUTES Josselyn Mayer, PAPER SORTER.[facility] [address] [place] [address] Referral ID Status Reason Start Date Expiration Date Visits Requested Visits Authorized [id number] Authorized PCP Requested Referral 07/10/2024 07/10/2025 1 1 Specialty Diagnoses / Procedures Referred By Contac t Referred To Contact CT IMAGING Diagnoses Nonrheumatic aortic valve stenosis Encounter for preprocedural cardiovascular examination Procedures CTA CHEST (GATED) WO/W IVCON CT ANGIOGRAPHY CHEST W/CONTRAST/NONCONTRAST Josselyn Mayer, PAPER SORTER.CAR SHAKEOUT OPERATOR [address] [place] [address] [place] [id number] Referral ID Status Reason Start Date Expiration Date Visits Requested Visits Authorized [id number] Authorized Auto-Generat ed Referral 07/10/2024 08/09/2025 1 1 Specialty Diagnoses / Procedures Referred By Contac t Referred To Contact CT IMAGING Diagnoses Nonrheumatic aortic valve stenosis Encounter for preprocedural cardiovascular examination Procedures CTA ABD/PEL W IVCON CT ANGIO ABD&PLVIS CNTRST MTRL W/WO CNTRST IMJosselyn Garcia, PAPER SORTER.CAR SHAKEOUT OPERATOR [address] [place] [address] [address] [place] [address] Referral ID Status Reason Start Date Expiration Date Visits Requested Visits Authorized [id number] Authorized Auto-Generat ed Referral 07/10/2024 08/09/2025 1 1 Referral ID Status Reason Start Date Expiration Date V isits Requested Visits Authorized [id number] Closed Auto-Generate d Referral 07/10/2024 08/09/2025 1 1 Referral ID Status Reason Start Date Expiration Date V isits Requested Visits Authorized [id number] Closed Auto-Generate d Referral 07/10/2024 08/09/2025 1 [...] 12:30pm LABWORK April 17, 2025 5:00a m ALF LAB WORK April 24, 2025 5: 00am ALF LAB WORK April 29, 2025 6: 45am ALF LAB WORK May 01, 2025 5: 15am RIGHT HUMERUS May 02, 2025 10:1 1am Room 1 May 02, 2025 10:2 9am ALF LAB WORK May 06, 2025 4: 00am ALF LAB WORK May 08, 2025 5: 00am ALF LAB WORK May 13, 2025 5: 00am ALF LAB WORK May 15, 2025 5: 00am ALF LAB WORK May 20, 2025 4 :00am [...] and content) DATE CREATED AUTHOR 04/06/2018 [facility] DATE CREATED AUTHOR AUTHOR'S ORGANIZ ATION 08/03/2025 [facility] DATE CREATED AUTHOR AUTHOR'S ORGANIZ ATION 08/12/2025 [facility] DATE CREATED AUTHOR AUTHOR'S MAME ANAND 08/27/2025 [facility] Source Comments (unrecognize d section and content) In the event this informatio n is protected by the Federal Confidentiality of Alcohol and Drug Abuse Patient Records regulations: The Federal rules restrict any use of the information to criminally investigate or prosecute any alcohol or drug abuse patient.[facility] the event this information is protected by the Federal Confidentiality of Alcohol and Drug Abuse Patient Records regulations: The Federal rules restrict any use of the information to criminally investigate or prosecute any alcohol or drug abuse patient.[facility] the event this information is protected by the Federal Confidentiality of Alcohol and Drug Abuse Patient Records regulations: The Federal rules restrict any use of the information to criminally investigate or prosecute any alcohol or drug abuse patient.[facility] the event this information is protected by the Federal Confidentiality of Alcohol and Drug Abuse Patient Records regulations: The Federal rules restrict any use of the information to criminally investigate or prosecute any alcohol or drug abuse patient.[facility] Hospital[facility] the event this information is protected by the Federal Confidentiality of Alcohol and Drug Abuse Patient Records regulations: The Federal rules restrict any use of the information to criminally investigate or prosecute any alcohol or drug abuse patient.[facility] Hospital[facility] the event this information is protected by the Federal Confidentiality of Alcohol and Drug Abuse Patient Records regulations: The Federal rules restrict any use of the information to criminally investigate or prosecute any alcohol or drug abuse patient.[facility] HospitalIn the event this information is protected by the Federal Confidentiality of Alcohol and Drug Abuse Patient Records regulations: The Federal rules restrict any use of the information to criminally investigate or prosecute any alcohol or drug abuse patient.[facility] HospitalIn the event this information is protected by the Federal Confidentiality of Alcohol and Drug Abuse Patient Records regulations: The Federal rules restrict any use of the information to criminally investigate or prosecute any alcohol or drug abuse patient.[facility] HospitalIn the event this information is protected by the Federal Confidentiality of Alcohol and Drug Abuse Patient Records regulations: The Federal rules restrict any use of the information to criminally investigate or prosecute any alcohol or drug abuse patient.[facility] HospitalIn the event this information is protected by the Federal Confidentiality of Alcohol and Drug Abuse Patient Records regulations: The Federal rules restrict any use of the information to criminally investigate or prosecute any alcohol or drug abuse patient.[facility] HospitalIn the event this information is protected by the Federal Confidentiality of Alcohol and Drug Abuse Patient Records regulations: The Federal rules restrict any use of the information to criminally investigate or prosecute any alcohol or drug abuse patient.[facility] HospitalIn the event this information is protected by the Federal Confidentiality of Alcohol and Drug Abuse Patient Records regulations: The Federal rules restrict any use of the information to criminally investigate or prosecute any alcohol or drug abuse patient.[facility] HospitalIn the event this information is protected by the Federal Confidentiality of Alcohol and Drug Abuse Patient Records regulations: The Federal rules restrict any use of the information to criminally investigate or prosecute any alcohol or drug abuse patient.[facility] HospitalIn the event this information is protected by the Federal Confidentiality of Alcohol and Drug Abuse Patient Records regulations: The Federal rules restrict any use of the information to criminally investigate or prosecute any alcohol or drug abuse patient.[facility] HospitalIn the event this information is protected by the Federal Confidentiality of Alcohol and Drug Abuse Patient Records regulations: The Federal rules restrict any use of the information to criminally investigate or prosecute any alcohol or drug abuse patient.[facility] HospitalIn the event this information is protected by the Federal Confidentiality of Alcohol and Drug Abuse Patient Records regulations: The Federal rules restrict any use of the information to criminally investigate or prosecute any alcohol or drug abuse patient.[facility] HospitalIn the event this information is protected by the Federal Confidentiality of Alcohol and Drug Abuse Patient Records regulations: The Federal rules restrict any use of the information to criminally investigate or prosecute any alcohol or drug abuse patient.[facility] HospitalIn the event this information is protected by the Federal Confidentiality of Alcohol and Drug Abuse Patient Records regulations: The Federal rules restrict any use of the information to criminally investigate or prosecute any alcohol or drug abuse patient.[facility] HospitalIn the event this information is protected by the Federal Confidentiality of Alcohol and Drug Abuse Patient Records regulations: The Federal rules restrict any use of the information to criminally investigate or prosecute any alcohol or drug abuse patient.[facility] HospitalIn the event this information is protected by the Federal Confidentiality of Alcohol and Drug Abuse Patient Records regulations: The Federal rules restrict any use of the information to criminally investigate or prosecute any alcohol or drug abuse patient.[facility] HospitalIn the event this information is protected by the Federal Confidentiality of Alcohol and Drug Abuse Patient Records regulations: The Federal rules restrict any use of the information to criminally investigate or prosecute any alcohol or drug abuse patient.[facility] HospitalIn the event this information is protected by the Federal Confidentiality of Alcohol and Drug Abuse Patient Records regulations: The Federal rules restrict any use of the information to criminally investigate or prosecute any alcohol or drug abuse patient.[facility] HospitalIn the event this information is protected by the Federal Confidentiality of Alcohol and Drug Abuse Patient Records regulations: The Federal rules restrict any use of the information to criminally investigate or prosecute any alcohol or drug abuse patient.[facility] HospitalIn the event this information is protected by the Federal Confidentiality of Alcohol and Drug Abuse Patient Records regulations: The Federal rules restrict any use of the information to criminally investigate or prosecute any alcohol or drug abuse patient.[facility] HospitalIn the event this information is protected by the Federal Confidentiality of Alcohol and Drug Abuse Patient Records regulations: The Federal rules restrict any use of the information to criminally investigate or prosecute any alcohol or drug abuse patient.[facility] HospitalIn the event this information is protected by the Federal Confidentiality of Alcohol and Drug Abuse Patient Records regulations: The Federal rules restrict any use of the information to criminally investigate or prosecute any alcohol or drug abuse patient.[facility] HospitalIn the event this information is protected by the Federal Confidentiality of Alcohol and Drug Abuse Patient Records regulations: The Federal rules restrict any use of the information to criminally investigate or prosecute any alcohol or drug abuse patient.[facility] HospitalIn the event this information is protected by the Federal Confidentiality of Alcohol and Drug Abuse Patient Records regulations: The Federal rules restrict any use of the information to criminally investigate or prosecute any alcohol or drug abuse patient.[facility] HospitalIn the event this information is protected by the Federal Confidentiality of Alcohol and Drug Abuse Patient Records regulations: The Federal rules restrict any use of the information to criminally investigate or prosecute any alcohol or drug abuse patient.[facility] HospitalIn the event this information is protected by the Federal Confidentiality of Alcohol and Drug Abuse Patient Records regulations: The Federal rules restrict any use of the information to criminally investigate or prosecute any alcohol or drug abuse patient.[facility] HospitalIn the event this information is protected by the Federal Confidentiality of Alcohol and Drug Abuse Patient Records regulations: The Federal rules restrict any use of the information to criminally investigate or prosecute any alcohol or drug abuse patient.[facility] HospitalIn the event this information is protected by the Federal Confidentiality of Alcohol and Drug Abuse Patient Records regulations: The Federal rules restrict any use of the information to criminally investigate or prosecute any alcohol or drug abuse patient.[facility] HospitalIn the event this information is protected by the Federal Confidentiality of Alcohol and Drug Abuse Patient Records regulations: The Federal rules restrict any use of the information to criminally investigate or prosecute any alcohol or drug abuse patient.[facility] HospitalIn the event this information is protected by the Federal Confidentiality of Alcohol and Drug Abuse Patient Records regulations: The Federal rules restrict any use of the information to criminally investigate or prosecute any alcohol or drug abuse patient.[facility] HospitalIn the event this information is protected by the Federal Confidentiality of Alcohol and Drug Abuse Patient Records regulations: The Federal rules restrict any use of the information to criminally investigate or prosecute any alcohol or drug abuse patient.[facility] HospitalIn the event this information is protected by the Federal Confidentiality of Alcohol and Drug Abuse Patient Records regulations: The Federal rules restrict any use of the information to criminally investigate or prosecute any alcohol or drug abuse patient.[facility] HospitalIn the event this information is protected by the Federal Confidentiality of Alcohol and Drug Abuse Patient Records regulations: The Federal rules restrict any use of the information to criminally investigate or prosecute any alcohol or drug abuse patient.[facility] HospitalIn the event this information is protected by the Federal Confidentiality of Alcohol and Drug Abuse Patient Records regulations: The Federal rules restrict any use of the information to criminally investigate or prosecute any alcohol or drug abuse patient.[facility] HospitalIn the event this information is protected by the Federal Confidentiality of Alcohol and Drug Abuse Patient Records regulations: The Federal rules restrict any use of the information to criminally investigate or prosecute any alcohol or drug abuse patient.[facility] HospitalIn the event this information is protected by the Federal Confidentiality of Alcohol and Drug Abuse Patient Records regulations: The Federal rules restrict any use of the information to criminally investigate or prosecute any alcohol or drug abuse patient.[facility] HospitalIn the event this information is protected by the Federal Confidentiality of Alcohol and Drug Abuse Patient Records regulations: The Federal rules restrict any use of the information to criminally investigate or prosecute any alcohol or drug abuse patient.[facility] HospitalIn the event this information is protected by the Federal Confidentiality of Alcohol and Drug Abuse Patient Records regulations: The Federal rules restrict any use of the information to criminally investigate or prosecute any alcohol or drug abuse patient.[facility] HospitalIn the event this information is protected by the Federal Confidentiality of Alcohol and Drug Abuse Patient Records regulations: The Federal rules restrict any use of the information to criminally investigate or prosecute any alcohol or drug abuse patient.[facility] HospitalIn the event this information is protected by the Federal Confidentiality of Alcohol and Drug Abuse Patient Records regulations: The Federal rules restrict any use of the information to criminally investigate or prosecute any alcohol or drug abuse patient.[facility] HospitalIn the event this information is protected by the Federal Confidentiality of Alcohol and Drug Abuse Patient Records regulations: The Federal rules restrict any use of the information to criminally investigate or prosecute any alcohol or drug abuse patient.[facility] HospitalIn the event this information is protected by the Federal Confidentiality of Alcohol and Drug Abuse Patient Records regulations: The Federal rules restrict any use of the information to criminally investigate or prosecute any alcohol or drug abuse patient.[facility] HospitalIn the event this information is protected by the Federal Confidentiality of Alcohol and Drug Abuse Patient Records regulations: The Federal rules restrict any use of the information to criminally investigate or prosecute any alcohol or drug abuse patient.[facility] HospitalIn the event this information is protected by the Federal Confidentiality of Alcohol and Drug Abuse Patient Records regulations: The Federal rules restrict any use of the information to criminally investigate or prosecute any alcohol or drug abuse patient.[facility] HospitalIn the event this information is protected by the Federal Confidentiality of Alcohol and Drug Abuse Patient Records regulations: The Federal rules restrict any use of the information to criminally investigate or prosecute any alcohol or drug abuse patient.[facility] HospitalIn the event this information is protected by the Federal Confidentiality of Alcohol and Drug Abuse Patient Records regulations: The Federal rules restrict any use of the information to criminally investigate or prosecute any alcohol or drug abuse patient.[facility] HospitalIn the event this information is protected by the Federal Confidentiality of Alcohol and Drug Abuse Patient Records regulations: The Federal rules restrict any use of the information to criminally investigate or prosecute any alcohol or drug abuse patient.[facility] HospitalIn the event this information is protected by the Federal Confidentiality of Alcohol and Drug Abuse Patient Records regulations: The Federal rules restrict any use of the information to criminally investigate or prosecute any alcohol or drug abuse patient.[facility] HospitalIn the event this information is protected by the Federal Confidentiality of Alcohol and Drug Abuse Patient Records regulations: The Federal rules restrict any use of the information to criminally investigate or prosecute any alcohol or drug abuse patient.[facility] HospitalIn the event this information is protected by the Federal Confidentiality of Alcohol and Drug Abuse Patient Records regulations: The Federal rules restrict any use of the information to criminally investigate or prosecute any alcohol or drug abuse patient.[facility] HospitalIn the event this information is protected by the Federal Confidentiality of Alcohol and Drug Abuse Patient Records regulations: The Federal rules restrict any use of the information to criminally investigate or prosecute any alcohol or drug abuse patient.[facility] HospitalIn the event this information is protected by the Federal Confidentiality of Alcohol and Drug Abuse Patient Records regulations: The Federal rules restrict any use of the information to criminally investigate or prosecute any alcohol or drug abuse patient.[facility] HospitalIn the event this information is protected by the Federal Confidentiality of Alcohol and Drug Abuse Patient Records regulations: The Federal rules restrict any use of the information to criminally investigate or prosecute any alcohol or drug abuse patient.[facility] HospitalIn the event this information is protected by the Federal Confidentiality of Alcohol and Drug Abuse Patient Records regulations: The Federal rules restrict any use of the information to criminally investigate or prosecute any alcohol or drug abuse patient.[facility] HospitalIn the event this information is protected by the Federal Confidentiality of Alcohol and Drug Abuse Patient Records regulations: The Federal rules restrict any use of the information to criminally investigate or prosecute any alcohol or drug abuse patient.[facility] HospitalIn the event this information is protected by the Federal Confidentiality of Alcohol and Drug Abuse Patient Records regulations: The Federal rules restrict any use of the information to criminally investigate or prosecute any alcohol or drug abuse patient.[facility] HospitalIn the event this information is protected by the Federal Confidentiality of Alcohol and Drug Abuse Patient Records regulations: The Federal rules restrict any use of the information to criminally investigate or prosecute any alcohol or drug abuse patient.[facility] HospitalIn the event this information is protected by the Federal Confidentiality of Alcohol and Drug Abuse Patient Records regulations: The Federal rules restrict any use of the information to criminally investigate or prosecute any alcohol or drug abuse patient.[facility] HospitalIn the event this information is protected by the Federal Confidentiality of Alcohol and Drug Abuse Patient Records regulations: The Federal rules restrict any use of the information to criminally investigate or prosecute any alcohol or drug abuse patient.[facility] HospitalIn the event this information is protected by the Federal Confidentiality of Alcohol and Drug Abuse Patient Records regulations: The Federal rules restrict any use of the information to criminally investigate or prosecute any alcohol or drug abuse patient.[facility] HospitalIn the event this information is protected by the Federal Confidentiality of Alcohol and Drug Abuse Patient Records regulations: The Federal rules restrict any use of the information to criminally investigate or prosecute any alcohol or drug abuse patient.[facility] HospitalIn the event this information is protected by the Federal Confidentiality of Alcohol and Drug Abuse Patient Records regulations: The Federal rules restrict any use of the information to criminally investigate or prosecute any alcohol or drug abuse patient.[facility] HospitalIn the event this information is protected by the Federal Confidentiality of Alcohol and Drug Abuse Patient Records regulations: The Federal rules restrict any use of the information to criminally investigate or prosecute any alcohol or drug abuse patient.[facility] HospitalIn the event this information is protected by the Federal Confidentiality of Alcohol and Drug Abuse Patient Records regulations: The Federal rules restrict any use of the information to criminally investigate or prosecute any alcohol or drug abuse patient.[facility] HospitalIn the event this information is protected by the Federal Confidentiality of Alcohol and Drug Abuse Patient Records regulations: The Federal rules restrict any use of the information to criminally investigate or prosecute any alcohol or drug abuse patient.[facility] HospitalIn the event this information is protected by the Federal Confidentiality of Alcohol and Drug Abuse Patient Records regulations: The Federal rules restrict any use of the information to criminally investigate or prosecute any alcohol or drug abuse patient.[facility] HospitalIn the event this information is protected by the Federal Confidentiality of Alcohol and Drug Abuse Patient Records regulations: The Federal rules restrict any use of the information to criminally investigate or prosecute any alcohol or drug abuse patient.[facility] HospitalIn the event this information is protected by the Federal Confidentiality of Alcohol and Drug Abuse Patient Records regulations: The Federal rules restrict any use of the information to criminally investigate or prosecute any alcohol or drug abuse patient.[facility] HospitalIn the event this information is protected by the Federal Confidentiality of Alcohol and Drug Abuse Patient Records regulations: The Federal rules restrict any use of the information to criminally investigate or prosecute any alcohol or drug abuse patient.[facility] HospitalIn the event this information is protected by the Federal Confidentiality of Alcohol and Drug Abuse Patient Records regulations: The Federal rules restrict any use of the information to criminally investigate or prosecute any alcohol or drug abuse patient.[facility] HospitalIn the event this information is protected by the Federal Confidentiality of Alcohol and Drug Abuse Patient Records regulations: The Federal rules restrict any use of the information to criminally investigate or prosecute any alcohol or drug abuse patient.[facility] HospitalIn the event this information is protected by the Federal Confidentiality of Alcohol and Drug Abuse Patient Records regulations: The Federal rules restrict any use of the information to criminally investigate or prosecute any alcohol or drug abuse patient.[facility] HospitalIn the event this information is protected by the Federal Confidentiality of Alcohol and Drug Abuse Patient Records regulations: The Federal rules restrict any use of the information to criminally investigate or prosecute any alcohol or drug abuse patient.[facility] HospitalIn the event this information is protected by the Federal Confidentiality of Alcohol and Drug Abuse Patient Records regulations: The Federal rules restrict any use of the information to criminally investigate or prosecute any alcohol or drug abuse patient.[facility] HospitalIn the event this information is protected by the Federal Confidentiality of Alcohol and Drug Abuse Patient Records regulations: The Federal rules restrict any use of the information to criminally investigate or prosecute any alcohol or drug abuse patient.[facility] HospitalIn the event this information is protected by the Federal Confidentiality of Alcohol and Drug Abuse Patient Records regulations: The Federal rules restrict any use of the information to criminally investigate or prosecute any alcohol or drug abuse patient.[facility] HospitalIn the event this information is protected by the Federal Confidentiality of Alcohol and Drug Abuse Patient Records regulations: The Federal rules restrict any use of the information to criminally investigate or prosecute any alcohol or drug abuse patient.[facility] HospitalIn the event this information is protected by the Federal Confidentiality of Alcohol and Drug Abuse Patient Records regulations: The Federal rules restrict any use of the information to criminally investigate or prosecute any alcohol or drug abuse patient.[facility] HospitalIn the event this information is protected by the Federal Confidentiality of Alcohol and Drug Abuse Patient Records regulations: The Federal rules restrict any use of the information to criminally investigate or prosecute any alcohol or drug abuse patient.[facility] HospitalIn the event this information is protected by the Federal Confidentiality of Alcohol and Drug Abuse Patient Records regulations: The Federal rules restrict any use of the information to criminally investigate or prosecute any alcohol or drug abuse patient.[facility] HospitalIn the event this information is protected by the Federal Confidentiality of Alcohol and Drug Abuse Patient Records regulations: The Federal rules restrict any use of the information to criminally investigate or prosecute any alcohol or drug abuse patient.[facility] HospitalIn the event this information is protected by the Federal Confidentiality of Alcohol and Drug Abuse Patient Records regulations: The Federal rules restrict any use of the information to criminally investigate or prosecute any alcohol or drug abuse patient.[facility] HospitalIn the event this information is protected by the Federal Confidentiality of Alcohol and Drug Abuse Patient Records regulations: The Federal rules restrict any use of the information to criminally investigate or prosecute any alcohol or drug abuse patient.[facility] HospitalIn the event this information is protected by the Federal Confidentiality of Alcohol and Drug Abuse Patient Records regulations: The Federal rules restrict any use of the information to criminally investigate or prosecute any alcohol or drug abuse patient.[facility] HospitalIn the event this information is protected by the Federal Confidentiality of Alcohol and Drug Abuse Patient Records regulations: The Federal rules restrict any use of the information to criminally investigate or prosecute any alcohol or drug abuse patient.[facility] HospitalIn the event this information is protected by the Federal Confidentiality of Alcohol and Drug Abuse Patient Records regulations: The Federal rules restrict any use of the information to criminally investigate or prosecute any alcohol or drug abuse patient.[facility] HospitalIn the event this information is protected by the Federal Confidentiality of Alcohol and Drug Abuse Patient Records regulations: The Federal rules restrict any use of the information to criminally investigate or prosecute any alcohol or drug abuse patient.[facility] HospitalIn the event this information is protected by the Federal Confidentiality of Alcohol and Drug Abuse Patient Records regulations: The Federal rules restrict any use of the information to criminally investigate or prosecute any alcohol or drug abuse patient.[facility] HospitalIn the event this information is protected by the Federal Confidentiality of Alcohol and Drug Abuse Patient Records regulations: The Federal rules restrict any use of the information to criminally investigate or prosecute any alcohol or drug abuse patient.[facility] HospitalIn the event this information is protected by the Federal Confidentiality of Alcohol and Drug Abuse Patient Records regulations: The Federal rules restrict any use of the information to criminally investigate or prosecute any alcohol or drug abuse patient.[facility] HospitalIn the event this information is protected by the Federal Confidentiality of Alcohol and Drug Abuse Patient Records regulations: The Federal rules restrict any use of the information to criminally investigate or prosecute any alcohol or drug abuse patient.[facility] HospitalIn the event this information is protected by the Federal Confidentiality of Alcohol and Drug Abuse Patient Records regulations: The Federal rules restrict any use of the information to criminally investigate or prosecute any alcohol or drug abuse patient.[facility] HospitalIn the event this information is protected by the Federal Confidentiality of Alcohol and Drug Abuse Patient Records regulations: The Federal rules restrict any use of the information to criminally investigate or prosecute any alcohol or drug abuse patient.[facility] HospitalIn the event this information is protected by the Federal Confidentiality of Alcohol and Drug Abuse Patient Records regulations: The Federal rules restrict any use of the information to criminally investigate or prosecute any alcohol or drug abuse patient.[facility] HospitalIn the event this information is protected by the Federal Confidentiality of Alcohol and Drug Abuse Patient Records regulations: The Federal rules restrict any use of the information to criminally investigate or prosecute any alcohol or drug abuse patient.[facility] HospitalIn the event this information is protected by the Federal Confidentiality of Alcohol and Drug Abuse Patient Records regulations: The Federal rules restrict any use of the information to criminally investigate or prosecute any alcohol or drug abuse patient.[facility] HospitalIn the event this information is protected by the Federal Confidentiality of Alcohol and Drug Abuse Patient Records regulations: The Federal rules restrict any use of the information to criminally investigate or prosecute any alcohol or drug abuse patient.[facility] HospitalIn the event this information is protected by the Federal Confidentiality of Alcohol and Drug Abuse Patient Records regulations: The Federal rules restrict any use of the information to criminally investigate or prosecute any alcohol or drug abuse patient.[facility] HospitalIn the event this information is protected by the Federal Confidentiality of Alcohol and Drug Abuse Patient Records regulations: The Federal rules restrict any use of the information to criminally investigate or prosecute any alcohol or drug abuse patient.[facility] HospitalIn the event this information is protected by the Federal Confidentiality of Alcohol and Drug Abuse Patient Records regulations: The Federal rules restrict any use of the information to criminally investigate or prosecute any alcohol or drug abuse patient.[facility] HospitalIn the event this information is protected by the Federal Confidentiality of Alcohol and Drug Abuse Patient Records regulations: The Federal rules restrict any use of the information to criminally investigate or prosecute any alcohol or drug abuse patient.[facility] HospitalIn the event this information is protected by the Federal Confidentiality of Alcohol and Drug Abuse Patient Records regulations: The Federal rules restrict any use of the information to criminally investigate or prosecute any alcohol or drug abuse patient.[facility] HospitalIn the event this information is protected by the Federal Confidentiality of Alcohol and Drug Abuse Patient Records regulations: The Federal rules restrict any use of the information to criminally investigate or prosecute any alcohol or drug abuse patient.[facility] HospitalIn the event this information is protected by the Federal Confidentiality of Alcohol and Drug Abuse Patient Records regulations: The Federal rules restrict any use of the information to criminally investigate or prosecute any alcohol or drug abuse patient.[facility] HospitalIn the event this information is protected by the Federal Confidentiality of Alcohol and Drug Abuse Patient Records regulations: The Federal rules restrict any use of the information to criminally investigate or prosecute any alcohol or drug abuse patient.[facility] HospitalIn the event this information is protected by the Federal Confidentiality of Alcohol and Drug Abuse Patient Records regulations: The Federal rules restrict any use of the information to criminally investigate or prosecute any alcohol or drug abuse patient.[facility] HospitalIn the event this information is protected by the Federal Confidentiality of Alcohol and Drug Abuse Patient Records regulations: The Federal rules restrict any use of the information to criminally investigate or prosecute any alcohol or drug abuse patient.[facility] Reason for Visit (unrecogniz ed section and content) Reason Comments Follow Up Specialty Diagnoses / Procedures Referred By Anival t Referred To Contact Family Practice / FAMILY MEDICINE Diagnoses Follow up/not seen since 02/2020 Procedures 4C EST Self Corrina Lennon, [email or web address] O[employer]ATOR [address] [place] [address] Referral ID Status Reason Start Date Expiration Date V isits Requested Visits Authorized [id number] Closed Patient Cleared - INN Insurance Found [...] Date Comments Population Health Navigation Outreach 06/14/2022 [facility] care gaps Reason Onset Date Comments Anticoagulation 06/06/2022 Home INR Reason Onset Date Comments Anticoagulation 2022 INR result Reason Onset Date Comments Refill Request 07/22/2022 Reason Onset Date Comments Anticoagulation Telephone Fu 08/01/2022 Gabrielle e INR Result Reason Comments Consult Specialty Diagnoses / Procedures Referred By Anival aden Referred To Contact Cardiology / [facility] Diagnoses Paroxysmal atrial fibrillation (HCC) Nonrheumatic aortic valve stenosis Procedures CONSULT TO CARDIOLOGY OFFICE/OUTPATIENT [facility] 60-74 MINUTES Corrina Lennon, [email or web address] OPERATOR [address] [place] [address] Card Admin [facility] [address] [place] [address] Referral ID Status Reason Start Date Expiration Date V isits Requested Visits Authorized [id number] Closed PCP Requested Referral 02/28/2022 10/15/2022 1 [...] Reason Comments Results Reason Onset Date Comments [facility] LUIS RN 09/05/2023 Medication Ad herence review [...] Telephone Fu 03/07/2024 Reason Onset Date Comments [facility] LUIS RN 03/08/2024 Medication ad herence and [...] REAL TIME W/IMAGE COMPLETE Guanakito Reno MD [address] [place] [address] [place] [id number] Referral ID Status Reason Start Date Expiration Date V isits Requested Visits Authorized [id number] Closed Auto-Generate d Referral 03/26/2024 04/25/2025 1 1 Reason Comments Follow Up htn- ultrasound on k idneys and labs, family worried about falls Reason Comments Door Trimmer - Other Reason Comments Edema Bilateral leg [...] Update Specialty Diagnoses / Procedures Referred By Contac t Referred To Contact Diagnoses Valvular heart disease Valvular heart disease [I38] Procedures R & L HRT CATH WINJX HRT ART& L VENTR IMG CORONARY CATH 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 Ak Site Superintendent [address] [place] [address] Referral ID Status Reason Start Date Expiration Date Visits Re quested Visits Authorized [id number] 1 1 Reason Onset Date Comments Anticoagulation [...] e INR Result Reason Comments Faxed to [facility] Reason Onset Date Comments Refill Request 04/08/2025 Reason Comments Patient Question Care Teams (unrecognized sec tion and content) Director Of Media Relationship Specialty Start Date End Date Guanakito Reno MD [address] [place], [place] [id number] PCP - General Family Practice 05/24/18 13, Pharmacist [address] [place] [address] Pharmacist Pharmacy 05/31/21 Director Of Media Relationship Specialty Start Date [place]o [place] [address] [place] [address] PCP - General Family Practice 05/24/18 13, Pharmacist [phone] [place] [address] Pharmacist Pharmacy 05/31/21 Director Of Media Relationship Specialty Start Date End Date Guanakito Reno MD [address] [facility] [place] [address] PCP - General Family Practice 05/24/18 13, Pharmacist [phone] [place] [address] Pharmacist Pharmacy 05/31/21 Director Of Media Relationship Specialty Start Date End Date Guanakito Reno MD [address] [facility] [place] [address] PCP - General Family Practice 05/24/18 13, Pharmacist [phone] [place] [address] Pharmacist Pharmacy 05/31/21 Director Of Media Relationship Specialty Start Date End Date Guanakito Reno MD [address] [facility] [place] [address] PCP - General Family Practice 05/24/18 13, Pharmacist [address] [place] [address] Pharmacist Pharmacy 05/31/21 Director Of Media Relationship Specialty Start Date End Date Guanakito Reno MD [address] [place] [address] PCP - General Family Practice 05/24/18 13, Pharmacist [phone] [place] [address] Pharmacist Pharmacy 05/31/21 Director Of Media Relationship Specialty Start Date End Date Guanakito Reno MD [address] [facility] [place] [address] PCP - General Family Practice 05/24/18 13, Pharmacist [address] [place] [address] Pharmacist Pharmacy 05/31/21 Director Of Media Relationship Specialty Start Date End Date Guanakito Reno MD [address] [place] [address] PCP - General Family Practice 05/24/18 13, Pharmacist [address] [place] [address] Pharmacist Pharmacy 05/31/21 Director Of Media Relationship Specialty Start Date End Date Guanakito Reno MD [address] [place] [address] PCP - General Family Practice 05/24/18 13, Pharmacist [address] [place] [address] Pharmacist Pharmacy 05/31/21 Director Of Media Relationship Specialty Start Date End Date Guanakito Reno MD [address] [place] [address] PCP - General Family Medicine 05/24/18 13, Pharmacist [phone] [place] [address] Pharmacist Pharmacy 05/31/21 Director Of Media Relationship Specialty Start Date End Date Guanakito Reno MD [address] [place] [address] PCP - General Family Medicine 05/24/18, Pharmacist [phone] [place] [address], [place] [address] Pharmacist Pharmacy 05/31/21 Director Of Media Relationship Specialty Start Date End Date Guanakito Reno MD [address] [place] [address] PCP - General Family Medicine 05/24/18 13, Pharmacist [phone] [place] [address] Pharmacist Pharmacy 05/31/21 Director Of Media Relationship Specialty Start Date End Date Guanakito Reno MD [address] [place] [address] PCP - General Family Medicine 05/24/18 13, Pharmacist [address]87 [place] [address] Pharmacist Pharmacy 05/31/21 Director Of Media Relationship Specialty Start Date End Date Guanakito Reno MD [address] [facility] [place] [address] PCP - General Family Medicine 05/24/18 13, Pharmacist [address] [place] [address] Pharmacist Pharmacy 05/31/21 Director Of Media Relationship Specialty Start Date End Date Guanakito Reno MD [address] [facility] [place] [address] PCP - General Family Medicine 05/24/18 13, Pharmacist [phone] [place] [address] Pharmacist Pharmacy 05/31/21 Director Of Media Relationship Specialty Start Date End Date Guanakito Reno MD [address] [place] [address] PCP - General Family Medicine 05/24/18 13, Pharmacist [phone] [place] [address] Pharmacist Pharmacy 05/31/21 Director Of Media Relationship Specialty Start Date End Date Guanakito Reno MD [address] [place] [address] PCP - General Family Medicine 05/24/18 13, Pharmacist [address] [place] [address] Pharmacist Pharmacy 05/31/21 Director Of Media Relationship Specialty Start Date End Date Guanakito Reno MD [address] [place] [address] PCP - General Family Medicine 05/24/18 13, Pharmacist [address]36 [place] [address] Pharmacist Pharmacy 05/31/21 Director Of Media Relationship Specialty Start Date End Date Guanakito Reno MD [address] [place] [address] PCP - General Family Medicine 05/24/18 13, Pharmacist [address] [place] [address] Pharmacist Pharmacy 05/31/21 Director Of Media Relationship Specialty Start Date End Date Guanakito Reno MD [address] [facility] [place] [address] PCP - General Family Medicine 05/24/18 13, Pharmacist [address]203 [place] [address] Pharmacist Pharmacy 05/31/21 Director Of Media Relationship Specialty Start Date End Date Guanakito Reno MD [address] [place] [address] PCP - General Family Medicine 05/24/18, Pharmacist [address] [place] [address] Pharmacist Pharmacy 05/31/21 Director Of Media Relationship Specialty Start Date End Date Guanakito Reno MD [address] [place] [address] PCP - General Family Medicine 05/24/18 13, Pharmacist [address]21 [place] [address] Pharmacist Pharmacy 05/31/21 Director Of Media Relationship Specialty Start Date End Date Guanakito Reno MD [address] [place] [address] PCP - General Family Medicine 05/24/18 13, Pharmacist [phone] [place] [address] Pharmacist Pharmacy 05/31/21 Director Of Media Relationship Specialty Start Date End Date Guanakito Reno MD [address] [place] [address] PCP - General Family Medicine 05/24/18 13, Pharmacist [address] [place] [address] Pharmacist Pharmacy 05/31/21 Director Of Media Relationship Specialty Start Date End Date Guanakito Reno MD [address] [place] [address] PCP - General Family Medicine 05/24/18 13, Pharmacist [address]247 [place] [address] Pharmacist Pharmacy 05/31/21 Director Of Media Relationship Specialty Start Date End Date Guanakito Reno MD [address] [place] [address] PCP - General Family Medicine 05/24/18 13, Pharmacist [address] [place] [address] Pharmacist Pharmacy 05/31/21 Director Of Media Relationship Specialty Start Date End Date Guanakito Reno MD [address] [place] [address] PCP - General Family Medicine 05/24/18 13, Pharmacist [address] [place] [address] Pharmacist Pharmacy 05/31/21 Director Of Media Relationship Specialty Start Date End Date Guanakito Reno MD [address] [place] [address] PCP - General Family Medicine 05/24/18 13, Pharmacist [address]33 [place] [address] Pharmacist Pharmacy 05/31/21 Director Of Media Relationship Specialty Start Date End Date Guanakito Reno MD [address] [place] [address] PCP - General Family Medicine 05/24/18 13, Pharmacist [address] [place] [address] Pharmacist Pharmacy 05/31/21 Director Of Media Relationship Specialty Start Date End Date Guanakito Reno MD [address] [place] [address] PCP - General Family Medicine 05/24/18 13, Pharmacist [address] [place] [address] Pharmacist Pharmacy 05/31/21 Director Of Media Relationship Specialty Start Date End Date Guanakito Reno MD [address] [place] [address] PCP - General Family Medicine 05/24/18 13, Pharmacist [address] [place] [address] Pharmacist Pharmacy 05/31/21 Director Of Media Relationship Specialty Start Date End Date Guanakito Reno MD [address] [place] [address] PCP - General Family Medicine 05/24/18 13, Pharmacist [address] [place] [address] Pharmacist Pharmacy 05/31/21 Director Of Media Relationship Specialty Start Date End Date Guanakito Reno MD [address] [place] [address] PCP - General Family Medicine 05/24/18 13, Pharmacist [address] [place] [address] Pharmacist Pharmacy 05/31/21 Director Of Media Relationship Specialty Start Date End Date Guanakito Reno MD [address] [place] [address] PCP - General Family Medicine 05/24/18 13, Pharmacist [address] [place] [address] Pharmacist Pharmacy 05/31/21 Director Of Media Relationship Specialty Start Date End Date Guanakito Reno MD [address] [place] [address] PCP - General Family Medicine 05/24/18 13, Pharmacist [address]225 [place] [address] Pharmacist Pharmacy 05/31/21 Director Of Media Relationship Specialty Start Date End Date Guanakito Reno MD [address] [place] [address] PCP - General Family Medicine 05/24/18 13, Pharmacist [address]99 [place] [address] Pharmacist Pharmacy 05/31/21 Director Of Media Relationship Specialty Start Date End Date Guanakito Reno MD [address] [place] [address] PCP - General Family Medicine 05/24/18, Pharmacist [address] [place] [address] Pharmacist Pharmacy 05/31/21 Director Of Media Relationship Specialty Start Date End Date Guanakito Reno MD [address] [place] [address] PCP - General Family Medicine 05/24/18 13, Pharmacist [address]143 [place] [address] Pharmacist Pharmacy 05/31/21 Director Of Media Relationship Specialty Start Date End Date Guanakito Reno MD [address] [place] [address] PCP - General Family Medicine 05/24/18 13, Pharmacist [address] [place] [address] Pharmacist Pharmacy 05/31/21 Director Of Media Relationship Specialty Start Date End Date Guanakito Reno MD [address] [place] [address] PCP - General Family Medicine 05/24/18 13, Pharmacist [address] [place] [address] Pharmacist Pharmacy 05/31/21 Director Of Media Relationship Specialty Start Date End Date Guanakito Reno MD [address] [place] [address] PCP - General Family Medicine 05/24/18 13, Pharmacist [address]41 [place] [address] Pharmacist Pharmacy 05/31/21 Director Of Media Relationship Specialty Start Date End Date Guanakito Reno MD [address] [place] [address] PCP - General Family Medicine 05/24/18 13, Pharmacist [address] [place] [address] Pharmacist Pharmacy 05/31/21 Director Of Media Relationship Specialty Start Date End Date Guanakito Reno MD [address] [place] [address] PCP - General Family Medicine 05/24/18 13, Pharmacist [address] [place] [address] Pharmacist Pharmacy 05/31/21 Director Of Media Relationship Specialty Start Date End Date Guanakito Reno MD [address] [place] [address] PCP - General Family Medicine 05/24/18 13, Pharmacist [address]83 [place] [address] Pharmacist Pharmacy 05/31/21 Director Of Media Relationship Specialty Start Date End Date Guanakito Reno MD [address] [place] [address] PCP - General Family Medicine 05/24/18 13, Pharmacist [address] [place] [address] Pharmacist Pharmacy 05/31/21 Director Of Media Relationship Specialty Start Date End Date Guanakito Reno MD [address] [facility] [place] [address] PCP - General Family Medicine 05/24/18 13, Pharmacist [address]40 [place] [address] Pharmacist Pharmacy 05/31/21 Director Of Media Relationship Specialty Start Date End Date Guanakito Reno MD [address] [place] [address] PCP - General Family Medicine 05/24/18 13, Pharmacist [address] [place] [address] Pharmacist Pharmacy 05/31/21 Director Of Media Relationship Specialty Start Date End Date Guanakito Reno MD [address] [place] [address] PCP - General Family Medicine 05/24/18 13, Pharmacist [address]759 [place] [address] Pharmacist Pharmacy 05/31/21 Director Of Media Relationship Specialty Start Date End Date Guanakito Reno MD [address] [place] [address] PCP - General Family Medicine 05/24/18 13, Pharmacist [address]322 [place] [address] Pharmacist Pharmacy 05/31/21 Director Of Media Relationship Specialty Start Date End Date Guanakito Reno MD [address] [place] [address] PCP - General Family Medicine 05/24/18 13, Pharmacist [address] [place] [address] Pharmacist Pharmacy 05/31/21 Director Of Media Relationship Specialty Start Date End Date Guanakito Reno MD [address] [place] [address] PCP - General Family Medicine 05/24/18 13, Pharmacist [address]447 [place] [address] Pharmacist Pharmacy 05/31/21 Director Of Media Relationship Specialty Start Date End Date Guanakito Reno MD [address] [place] [address] PCP - General Family Medicine 05/24/18, Pharmacist [address] [place] [address] Pharmacist Pharmacy 05/31/21 Corrina Lennon APRN.CAR SHAKEOUT OPERATOR [address] [place] [address] Manager Loss Prevention Family Medicine 09/23/24 Carolina Landeros APRN.CAR SHAKEOUT OPERATOR [address] [place] [address] Manager Loss Prevention Family Medicine 09/23/24 Director Of Media Relationship Specialty Start Date End Date Guanakito Reno MD [address] [place] [address] PCP - General Family Medicine 05/24/18, Pharmacist [address]365 [place] [address] Pharmacist Pharmacy 05/31/21 Corrina Lennon APRN.CAR SHAKEOUT OPERATOR [address] [place] [address] Manager Loss Prevention Family Medicine 09/23/24 Carolina Landeros APRN.CAR SHAKEOUT OPERATOR [address] [place] [address] Manager Loss Prevention Family Medicine 09/23/24 Director Of Media Relationship Specialty Start Date End Date Guanakito Reno MD [address] [facility] [place] [address] PCP - General Family Medicine 05/24/18 13, Pharmacist [address]58 [place] [address] Pharmacist Pharmacy 05/31/21 Corrina Lennon, PAPER SORTER.CAR SHAKEOUT OPERATOR [address] [facility] [place] [address] Manager Loss Prevention Family Medicine 09/23/24 Carolina Landeros PAPER SORTER.CAR SHAKEOUT OPERATOR [address] [facility] [place] [address] Manager Loss Prevention Family Medicine 09/23/24 Director Of Media Relationship Specialty Start Date End Date Guanakito Reno MD [address] [facility] [place] [address] PCP - General Family Medicine 05/24/18 13, Pharmacist [address] [place] [address] Pharmacist Pharmacy 05/31/21 Corrina Lennon, PAPER SORTER.CAR SHAKEOUT OPERATOR [address] [facility] [place] [address] Manager Loss Prevention Family Medicine 09/23/24 Carolina Landeros, PAPER SORTER.CAR SHAKEOUT OPERATOR [address] [facility] [place] [address] Manager Loss Prevention Family Medicine 09/23/24 Director Of Media Relationship Specialty Start Date End Date Guanakito Reno MD [address] [facility] [place] [address] PCP - General Family Medicine 05/24/18 13, Pharmacist [address] [place] [address] Pharmacist Pharmacy 05/31/21 Corrina Lennon APRN.CAR SHAKEOUT OPERATOR [address] [facility] [place] [address] Manager Loss Prevention Family Medicine 09/23/24 Carolina Landeros APRN.CAR SHAKEOUT OPERATOR [address] [place] [address] Manager Loss Prevention Family Medicine 09/23/24 Director Of Media Relationship Specialty Start Date End Date Guanakito Reno MD [address] [place] [address] PCP - General Family Medicine 05/24/18 13, Pharmacist [address] [place] [address] Pharmacist Pharmacy 05/31/21 Corrina Lennon APRN.CAR SHAKEOUT OPERATOR [address] [place] [address] Manager Loss Prevention Family Medicine 09/23/24 Carolina Landeros APRN.CAR SHAKEOUT OPERATOR [address] [place] [address] Manager Loss Prevention Family Medicine 09/23/24 Director Of Media Relationship Specialty Start Date End Date Guanakito Reno MD [address] [place] [address] PCP - General Family Medicine 05/24/18 13, Pharmacist [address]11 [place] [address] Pharmacist Pharmacy 05/31/21 Corrina Lennon APRN.CAR SHAKEOUT OPERATOR [address] [place] [address] Manager Loss Prevention Family Medicine 09/23/24 Carolina Landeros APRN.CAR SHAKEOUT OPERATOR [address] [facility] [place] [address] Manager Loss Prevention [facility] 09/23/24 Director Of Media Relationship Specialty Start Date End Date Guanakito Reno MD [address] [facility] [place] [address] PCP - General Family Medicine 05/24/18 13, Pharmacist [address]26 [place] [address] Pharmacist Pharmacy 05/31/21 Corrina Lennon APRN.CAR SHAKEOUT OPERATOR [address] [facility] [place] [address] [facility]/24 Carolina Landeros APRN.CAR SHAKEOUT OPERATOR [address] [facility] [place] [address] [facility] 09/23/24 Director Of Media Relationship Specialty Start Date End Date Guanakito Reno MD [address] [facility] [place] [address] PCP - General Family Medicine 05/24/18 13, Pharmacist [address]01 [place] [address] Pharmacist Pharmacy 05/31/21 Corrina Lennon PAPER SORTER.CAR SHAKEOUT OPERATOR [address] [facility] [place] [address] Manager Loss Prevention Family Medicine 09/23/24 Carolina Landeros APRN.CAR SHAKEOUT OPERATOR [address] [facility] [place] [address] [facility] 09/23/24 Director Of Media Relationship Specialty Start Date End Date Guanakito Reno MD [address] [facility] [place] [address] PCP - General Family Medicine 05/24/18 13, Pharmacist [address] [place] [address] Pharmacist Pharmacy 05/31/21 Corrina Lennon PAPER SORTER.CAR SHAKEOUT OPERATOR [address] [facility] [place] [address] Manager Loss Prevention Family Medicine 09/23/24 Carolina Landeros PAPER SORTER.CAR SHAKEOUT OPERATOR [address] [place] [address] Manager Loss Prevention Family Medicine 09/23/24 Director Of Media Relationship Specialty Start Date End Date Guanakito Reno MD [address] [place] [address] PCP - General Family Medicine 05/24/18 13, Pharmacist [address]65 [place] [address] Pharmacist Pharmacy 05/31/21 Corrina Lennon, PAPER SORTER.CAR SHAKEOUT OPERATOR [address] [place] [address] Manager Loss Prevention Family Medicine 09/23/24 Carolina Landeros PAPER SORTER.CAR SHAKEOUT OPERATOR [address] [facility] [place] [address] Manager Loss Prevention Family Medicine 09/23/24 Director Of Media Relationship Specialty Start Date End Date Guanakito Reno MD [address] [facility] [place] [address] PCP - General Family Medicine 05/24/18 13, Pharmacist [address] [place] [address] Pharmacist Pharmacy 05/31/21 Corrina Lennon, PAPER SORTER.CAR SHAKEOUT OPERATOR [address] [facility] [place] [place] [address] [facility] 09/23/24 Carolina Landeros PAPER SORTER.CAR SHAKEOUT OPERATOR [address] [facility] [place] [address] [facility] 09/23/24 Team Status: Active Member Role/Relationship [...] BE BASED ON THE PRIMARY CLINICAL RECORDS. [employer] [facility]. provides no warranty or guarantee of the accuracy or completeness of information in this document.
[2025-10-07 08:10] LABS: Prothrombin Time (Protime)PT. 27.4 SECONDS (11.7-14.9)
== END ==
LOC: OLS.SW 05:00
PROVIDERS: PCP Family Medicine; Visit Provider Internal Medicine
DX: Z79.01 Long term (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 (principal)
CPT/HCPCS: 36415; 85610